=== PATIENT | female | born 1945 | race Caucasian/White ===

== ENCOUNTER 2017-12-03 09:33 | Outpatient (RCR) | payer MEDICARE, SELFPAY ==
[2017-11-26 09:20] VITALS: BP 146/82; BMI 30.5
[2017-12-03 10:56] LABS: International Normalized Ratio 1.7; Prothrombin Time (Protime)PT. 19.1 SECONDS (11.7-14.9)
[2017-12-03 11:10] LABS: Magnesium 1.6 mg/dL (1.6-2.6)
== END 2017-12-31 09:04 ==
LOC: LAB 09:33
PROVIDERS: Nurse Practitioner Family; Family Provider Internal Medicine; PCP Internal Medicine; Visit Provider Internal Medicine Cardiovascular Disease
DX: I48.0 Paroxysmal atrial fibrillation (principal); E83.42 Hypomagnesemia; Z79.01 Long term (current) use of anticoagulants
CPT/HCPCS: 36415; 83735; 85610

== ENCOUNTER 2018-01-15 07:45 | Outpatient (RCR) | payer MEDICARE, SELFPAY ==
[2017-12-23 10:37] LABS: International Normalized Ratio 1.6
[2017-12-31 09:35] LABS: International Normalized Ratio 1.6; Prothrombin Time (Protime)PT. 19.5 SECONDS (11.7-14.9)
[2018-01-07 12:00] LABS: Prothrombin Time (Protime)PT. 22.7 SECONDS (11.7-14.9)
[2018-01-15 09:23] LABS: International Normalized Ratio 2.3; Prothrombin Time (Protime)PT. 25.1 SECONDS (11.7-14.9)
[2018-01-15 09:42] LABS: AST(SGOT) 19 U/L (15-37); Alanine Aminotransfer ALT/SGPT 19 U/L (13-56); Albumin, Serum 3.6 g/dL (3.2-5.0); Alkaline Phosphatase 92 U/L (45-117); Cholesterol 145 mg/dL (200); Globulin 3.7 g/dL (2.2-4.2); High Density Lipoprotein 66 mg/dL; Protein, Total 7.3 g/dL (6.4-8.2); Triglycerides 127 mg/dL; Very Low Density Lipoprotein 25 mg/dL (5-40)
== END 2018-01-15 08:00 | disposition home or self-care (01) ==
LOC: LAB 07:45
PROVIDERS: Family Provider Internal Medicine; PCP Internal Medicine; Visit Provider Internal Medicine Cardiovascular Disease
DX: I48.0 Paroxysmal atrial fibrillation (principal); Z79.01 Long term (current) use of anticoagulants; E78.5 Hyperlipidemia, unspecified
CPT/HCPCS: 36415; 80061; 80076; 85610

== ENCOUNTER → 2018-02-10 09:12 | Outpatient (CLI) | payer MEDICARE, SELFPAY ==
[2018-02-10 09:59] LABS: International Normalized Ratio 1.6
== END ==
PROVIDERS: Family Provider Internal Medicine; PCP Internal Medicine; Visit Provider Internal Medicine Cardiovascular Disease
DX: I48.0 Paroxysmal atrial fibrillation (principal); Z79.01 Long term (current) use of anticoagulants
CPT/HCPCS: 36415; 85610

== ENCOUNTER 2018-02-22 09:07 | Outpatient (RCR) | payer MEDICARE, SELFPAY ==
[2018-01-29 10:38] LABS: International Normalized Ratio 1.7; Prothrombin Time (Protime)PT. 19.9 SECONDS (11.7-14.9)
[2018-02-15 10:33] LABS: International Normalized Ratio 2.4; Prothrombin Time (Protime)PT. 26.5 SECONDS (11.7-14.9)
[2018-02-22 09:54] LABS: International Normalized Ratio 3.3; Prothrombin Time (Protime)PT. 33.7 SECONDS (11.7-14.9)
== END 2018-02-22 10:00 | disposition home or self-care (01) ==
LOC: LAB 09:07
PROVIDERS: Family Provider Internal Medicine; PCP Internal Medicine; Visit Provider Internal Medicine Cardiovascular Disease
DX: I48.0 Paroxysmal atrial fibrillation (principal); Z79.01 Long term (current) use of anticoagulants
CPT/HCPCS: 36415; 85610

== ENCOUNTER → 2018-02-24 09:57 | Outpatient (CLI) | payer MEDICARE, SELFPAY ==
--- NOTE | 2018-02-24 09:59 | ECHOD_ITS ---
Version 2 Reason For Study: PHTN Procedure This was a 2D Doppler, Color Flow transthoracic echocardiogram. Exam performed in department. Left Ventricle Normal size and thickness. The estimated ejection fraction is 65 %. Unable to assess diastolic dysfunction. No regional wall motion abnormalities noted. Right Ventricle Normal size and thickness. Normal systolic function. Atria The left atrium is severely enlarged. The right atrium is severely enlarged. Normal atrial septum. Mitral Valve The mitral valve is structurally normal. No prolapse or stenosis seen. Trivial mitral valve insufficiency. Tricuspid Valve Normal tricuspid valve. Mild (1+) tricuspid valve insufficiency. Right ventricular systolic pressure estimated to be 48 mmHg. Moderate pulmonary hypertension. Aortic Valve Normal aortic valve. Trisinus/trileaflet aortic valve. Pulmonic Valve Normal pulmonic valve. Mild (1+) pulmonic valve insufficiency. Great Vessels Normal aortic root. Normal arch. Normal inferior vena cava. Inferior vena cava collapse with sniff. Pericardium/Pleural No pericardial effusion. MMode/2D Measurements & Calculations LVIDd: 5.2 cm IVSd: 0.94 cm Ao root diam: 3.2 cm LVIDs: 3.4 cm LVPWd: 0.96 cm LA dimension: 3.6 cm RVDd: 3.0 cm FS: 34.2 % LAV(MOD-bp): 76.3 ml LA A4 area: 23.6 cm2 RA A4 area: 24.3 cm2 LAV(MOD-bp) Indexed: 36.3 ml/m2 LAV(MOD-sp2): 70.8 ml LAV(MOD-sp4): 70.0 ml Doppler Measurements & Calculations MV E max pamela: 161.2 cm/sec Ao V2 max: 160.0 cm/sec LV V1 max: 148.3 cm/sec Ao max P.2 mmHg LV V1 max P.8 mmHg PA V2 max: 146.6 cm/sec TR max pamela: 265.4 cm/sec TR max P.4 mmHg Interpretation Summary The estimated ejection fraction is 65 %. Unable to assess diastolic dysfunction. The left atrium is severely enlarged. The right atrium is severely enlarged. Trivial mitral valve insufficiency. Mild (1+) tricuspid valve insufficiency. Right ventricular systolic pressure estimated to be 48 mmHg. Moderate pulmonary hypertension. Pt appears to be in atrial fibrillation. Compared to echo report dated 10/13/2017, LV function has remained the same, RVSP has increased from 38 to 48 mm Hg. Pt now appears to be in atrial fibrillation. Ordering Physician: Grant Ko Referring Physician: Ro Menon Performed By: Gayla Steele RDCS, RVT
== END ==
PROVIDERS: Family Provider Internal Medicine; PCP Internal Medicine; Visit Provider Internal Medicine Cardiovascular Disease
DX: Z98.890 Other specified postprocedural states (principal)
CPT/HCPCS: 93306

== ENCOUNTER → 2018-03-09 09:52 | Outpatient (CLI) | payer MEDICARE, SELFPAY ==
[2018-03-09 10:59] LABS: Anion Gap 7 (5-15); BUN 11 mg/dL (7-18); BUN/Creat Ratio 13.6 RATIO (10-20); Calcium,Total 9.1 mg/dL (8.5-10.1); Chloride 108 mmol/L (98-107); Creatinine, Serum 0.81 mg/dL (0.55-1.02); EST Glomerular Filtration Rate 75 mL/min (>60); Est Glom Filt Rate - Afr Amer 90 mL/min (>60); Glucose 96 mg/dL (74-106); Potassium 3.8 mmol/L (3.5-5.1); Sodium Level 141 mmol/L (136-145)
== END ==
PROVIDERS: Internal Medicine Cardiovascular Disease; Family Provider Internal Medicine; PCP Internal Medicine; Visit Provider Nurse Practitioner Acute Care
DX: I48.91 Unspecified atrial fibrillation (principal)
CPT/HCPCS: 36415; 80048

== ENCOUNTER → 2018-03-17 10:48 | Day surgery (SDC) | payer MEDICARE, SELFPAY ==
[2018-03-17 11:06] LABS: Prothrombin Time Fingerstick 42.5 SEC (11.9-14.4)
--- NOTE | 2018-03-17 12:35 | PCM.OP.BLANK ---
Operative Report Date of Procedure: 03/17/18 CONSCIOUS SEDATION REPORT DATE OF SERVICE: March 17, 2018 BRIEF HISTORY OF PRESENT ILLNESS: The patient is a 73-year-old female who presented to [facility] for an elective outpatient cardioversion due to underlying atrial fibrillation. The patient does have a history of mild intermittent asthma along with obstructive sleep apnea, for which she is currently noncompliant with the use of nocturnal Pap therapy. The patient did undergo previous cardioversion in January 2017, during which time she received propofol for sedation. The patient denies any recent constitutional symptoms such as fevers, chills, nausea or vomiting. She denies previous anesthetic complications. PHYSICAL EXAMINATION: VITAL SIGNS: Reviewed and were acceptable. GENERAL: The patient is an obese female, in no apparent distress, speaking in full sentences. HEENT: Normocephalic, atraumatic. Mucous membranes are moist and pink. Good mouth opening noted. Trachea is midline. Good neck mobility. MP IV CHEST: S1, S2 irregularly irregular. No murmurs, rubs or gallops were noted. LUNGS: Clear to auscultation bilaterally without appreciable wheezes, rales or rhonchi. ABDOMEN: Soft, nontender, nondistended. Positive bowel sounds. EXTREMITIES: There is no clubbing, cyanosis or edema. ASA Class: II DESCRIPTION OF PROCEDURE: After confirmation of informed consent, the patient's anesthesia plan was reviewed in detail. Propofol was chosen. Risks and benefits were reviewed and the patient agreed to proceed. At 1152, the patient was given 40 mg of propofol. The patient achieved an appropriate level of sedation and was given a 200 joule synchronized cardioversion by Dr. Ko at the bedside. This was successful in achieving normal sinus rhythm. The patient was monitored until 1201, at which time she reached her baseline mental status and function. The patient tolerated the procedure well. COMPLICATIONS: None ESTIMATED BLOOD LOSS: None RECOMMENDATIONS: Okay to recover in usual fashion. Code Visit 9xxxx: Other Procedure See Report - [id number]
--- NOTE | 2018-03-17 12:40 | PCM.OP.BLANK ---
Problem List (1) Atrial fibrillation Status: Chronic (2) Atrial flutter Status: Chronic (3) RAMESH (obstructive sleep apnea) Status: Chronic (4) Pulmonary hypertension Status: Chronic Operative Report Date of Procedure: 03/17/18 DC cardioversion summary: The patient was brought to the [employer] holding area in the fasting state. The risks/benefits of the procedure were thoroughly explained the patient and informed consent was obtained. INR this morning was 3.8 and has been above 3.0 over the last several weeks. The defibrillator pads were placed in the AP position. With the assistance of Dr. Tone Alberto patient was given 40 mill grams of IV propofol. Once adequate sedation was obtained, patient received a single 200 J biphasic synchronized shock which converted from atrial flutter with controlled ventricular response to normal sinus rhythm/sinus bradycardia with first-degree AV block. This patient spontaneously awoke, moves all 4 extremities and tolerated the procedure well. Her rhythm maintained at sinus rhythm with first-degree AV block. Conclusions: Successful flecainide assisted DC cardioversion from atrial flutter to sinus bradycardia with first-degree AV block receiving a single 200 J biphasic synchronized shock. No complications. Recommend the patient continue on her Coumadin, flecainide, and heart rate controlling medications. She will return in 2 weeks time for a blood pressure check an EKG in our office. Patient tolerated procedure well. No complications.
== END ==
PROVIDERS: Family Provider Internal Medicine; PCP Internal Medicine; Visit Provider Internal Medicine Cardiovascular Disease
DX: I48.91 Unspecified atrial fibrillation (principal); I48.92 Unspecified atrial flutter; I27.29 Other secondary pulmonary hypertension; I10 Essential (primary) hypertension; G47.33 Obstructive sleep apnea (adult) (pediatric); E78.00 Pure hypercholesterolemia, unspecified; E66.9 Obesity, unspecified; E11.9 Type 2 diabetes mellitus without complications; Q62.39 Other obstructive defects of renal pelvis and ureter; J45.909 Unspecified asthma, uncomplicated; Z68.31 Body mass index [BMI] 31.0-31.9, adult; Z79.01 Long term (current) use of anticoagulants; Z79.84 Long term (current) use of oral hypoglycemic drugs; Z79.899 Other long term (current) drug therapy
CPT/HCPCS: 36416; 85610; 92960; 93005; J7040

== ENCOUNTER 2018-03-23 09:58 | Outpatient (RCR) | payer MEDICARE, SELFPAY ==
[2018-03-01 11:06] LABS: Prothrombin Time (Protime)PT. 22.9 SECONDS (11.7-14.9)
[2018-03-08 12:06] LABS: International Normalized Ratio 2.6; Prothrombin Time (Protime)PT. 28.1 SECONDS (11.7-14.9)
[2018-03-15 10:39] LABS: International Normalized Ratio 2.8; Prothrombin Time (Protime)PT. 29.4 SECONDS (11.7-14.9)
[2018-03-23 11:13] LABS: International Normalized Ratio 3.4; Prothrombin Time (Protime)PT. 34.6 SECONDS (11.7-14.9)
== END 2018-03-23 10:00 | disposition home or self-care (01) ==
LOC: LAB 09:58
PROVIDERS: Family Provider Internal Medicine; PCP Internal Medicine; Visit Provider Internal Medicine Cardiovascular Disease
DX: I48.0 Paroxysmal atrial fibrillation (principal); Z79.01 Long term (current) use of anticoagulants
CPT/HCPCS: 36415; 85610

== ENCOUNTER 2018-04-09 10:21 | Outpatient (RCR) | payer MEDICARE, SELFPAY ==
[2018-04-09 11:19] LABS: International Normalized Ratio 2.4
== END 2018-04-09 11:00 | disposition home or self-care (01) ==
LOC: LAB 10:21
PROVIDERS: Family Provider Internal Medicine; PCP Internal Medicine; Visit Provider Internal Medicine Cardiovascular Disease
DX: I48.0 Paroxysmal atrial fibrillation (principal); Z79.01 Long term (current) use of anticoagulants
CPT/HCPCS: 36415; 85610

== ENCOUNTER 2018-04-30 16:01 | Outpatient (RCR) | payer MEDICARE, SELFPAY ==
[2018-04-30 17:16] LABS: International Normalized Ratio 2.2; Prothrombin Time (Protime)PT. 24.8 SECONDS (11.7-14.9)
== END 2018-04-30 17:00 | disposition home or self-care (01) ==
LOC: LAB 16:01
PROVIDERS: Family Provider Internal Medicine; PCP Internal Medicine; Visit Provider Internal Medicine Cardiovascular Disease
DX: I48.0 Paroxysmal atrial fibrillation (principal); Z79.01 Long term (current) use of anticoagulants
CPT/HCPCS: 36415; 85610

== ENCOUNTER 2018-06-21 09:47 | Outpatient (RCR) | payer MEDICARE, SELFPAY ==
[2018-05-28 11:16] LABS: International Normalized Ratio 1.9; Prothrombin Time (Protime)PT. 21.8 SECONDS (11.7-14.9)
[2018-06-04 10:37] LABS: International Normalized Ratio 2.2; Prothrombin Time (Protime)PT. 24.5 SECONDS (11.7-14.9)
[2018-06-21 10:48] LABS: International Normalized Ratio 2.5; Prothrombin Time (Protime)PT. 27.4 SECONDS (11.7-14.9)
== END 2018-06-21 11:00 | disposition home or self-care (01) ==
LOC: LAB 09:47
PROVIDERS: Family Provider Internal Medicine; PCP Internal Medicine; Visit Provider Internal Medicine Cardiovascular Disease
DX: I48.0 Paroxysmal atrial fibrillation (principal); Z79.01 Long term (current) use of anticoagulants
CPT/HCPCS: 36415; 85610

== ENCOUNTER 2018-07-19 08:42 | Outpatient (RCR) | payer MEDICARE, SELFPAY ==
[2018-07-19 09:37] LABS: AST(SGOT) 20 U/L (15-37); Alanine Aminotransfer ALT/SGPT 23 U/L (13-56); Albumin, Serum 3.8 g/dL (3.2-5.0); Alkaline Phosphatase 96 U/L (45-117); Bilirubin, Direct 0.16 mg/dL (0.00-0.30); Cholesterol 139 mg/dL (200); Globulin 3.9 g/dL (2.2-4.2); High Density Lipoprotein 57 mg/dL; Protein, Total 7.7 g/dL (6.4-8.2); Triglycerides 173 mg/dL; Very Low Density Lipoprotein 35 mg/dL (5-40)
== END 2018-07-19 10:00 | disposition home or self-care (01) ==
LOC: LAB 08:42
PROVIDERS: Family Provider Internal Medicine; PCP Internal Medicine; Visit Provider Internal Medicine Cardiovascular Disease
DX: E78.5 Hyperlipidemia, unspecified (principal); Z79.899 Other long term (current) drug therapy
CPT/HCPCS: 36415; 80061; 80076

== ENCOUNTER 2018-09-14 11:23 | Outpatient (RCR) | payer MEDICARE, SELFPAY ==
[2018-09-07 09:21] VITALS: BMI 31.0
[2018-09-14 12:58] LABS: International Normalized Ratio 2.9; Prothrombin Time (Protime)PT. 30.6 SECONDS (11.7-14.9)
== END 2018-09-24 10:32 | disposition home or self-care (01) ==
LOC: LAB 11:23
PROVIDERS: Family Provider Internal Medicine; PCP Internal Medicine; Referring Provider Internal Medicine Cardiovascular Disease; Visit Provider Internal Medicine Cardiovascular Disease
DX: I48.0 Paroxysmal atrial fibrillation (principal); Z79.01 Long term (current) use of anticoagulants
CPT/HCPCS: 36415; 85610

== ENCOUNTER 2018-10-11 12:12 | Outpatient (RCR) | payer MEDICARE, SELFPAY ==
[2018-09-27 10:32] VITALS: BMI 30.5
[2018-10-11 11:34] VITALS: BMI 31.0
[2018-10-11 13:24] LABS: International Normalized Ratio 2.5; Prothrombin Time (Protime)PT. 27.4 SECONDS (11.7-14.9)
--- OUTSIDE RECORDS SUMMARY | 2019-01-13 02:27 | XMS RPT_ITS ---
:1945 Author Organization OHIP Support Name Relationship Address Phone ALONDRA ARROYO Unavailable [address] + [place] [address] R Unavailable Unavailable Unavailable DINA ALONDRA Unavailable [address] + [place] [address] R Unavailable Unavailable Unavailable DINA, ALONDRA Unavailable [address] + [place] [address] R Unavailable Unavailable Unavailable DINA ALONDRA Unavailable [address] + [place] [address] R Unavailable Unavailable Unavailable DINA, ALONDRA Unavailable [address] + [place] [address] R Unavailable Unavailable Unavailable DINA, ALONDRA Unavailable [address] + [place] [address] R Unavailable Unavailable Unavailable DINA, ALONDRA Unavailable [address] + [place] [address] R Unavailable Unavailable Unavailable DINA, ALONDRA Unavailable [address] + [place] [address] R Unavailable Unavailable Unavailable DINA, ALONDRA Unavailable [address] + [place] [address] R Unavailable Unavailable Unavailable DINA, ALONDRA Unavailable [address] + [place] [address] R Unavailable Unavailable Unavailable DINA, ALONDRA Unavailable [address] + [place] [address] R Unavailable Unavailable Unavailable DINA, ALONDRA Unavailable [address] + [place] [address] R Unavailable Unavailable Unavailable DINA, ALONDRA Unavailable [address] + [place] [address] R Unavailable Unavailable Unavailable DINASUEALONDRA Unavailable [address] + [place] [address] R Unavailable Unavailable Unavailable DINA ALONDRA Unavailable [address] + [place] [address] R Unavailable Unavailable Unavailable DINA ALONDRA Unavailable [address] + [place] [address] R Unavailable Unavailable Unavailable DINA ALONDRA Unavailable [address] + [place] [address] R Unavailable Unavailable Unavailable DINA ALONDRA Unavailable [address] + [place] [address] R Unavailable Unavailable Unavailable DINA ALONDRA Unavailable [address] + [place] [address] R Unavailable Unavailable Unavailable DINASUEALONDRA Unavailable [address] + [place] [address] R Unavailable Unavailable Unavailable DINASUEALONDRA Unavailable [address] + [place] [address] R Unavailable Unavailable Unavailable DINASUEALONDRA Unavailable [address] + [place] [address] R Unavailable Unavailable Unavailable DINASUEALONDRA Unavailable [address] + [place] [address] R Unavailable Unavailable Unavailable DINA ALONDRA Unavailable [address] + [place] [address] R Unavailable Unavailable Unavailable DINA ALONDRA Unavailable [address] + [place] [address] R Unavailable Unavailable Unavailable DINA ALONDRA Unavailable [address] + [place] [address] R Unavailable Unavailable Unavailable KIRK BONILLA/SAWYER Unavailable [address] [phone] [place] [address] R Unavailable Unavailable Unavailable R Unavailable Unavailable Unavailable Care Team Providers Name Role Phone TALAMPAS, JOON D Referring Unavailable TALAMPAS, JOON D Attending Unavailable OLDER, HEATHER (ADJUNCT SPANISH INSTRUCTOR) Referring Unavailable OLDER, HEATHER (ADJUNCT SPANISH INSTRUCTOR) Attending Unavailable TALAMPAS, JOON D Referring Unavailable TALAMPAS, JOON D Attending Unavailable TALAMPAS, JOON D Referring Unavailable TALAMPAS, JOON D Referring Unavailable TANGNICOLLE (DEPUTY DIRECTOR OF PUBLIC WORKS) Attending Unavailable Grant Ko Attending Unavailable Talampas, Joon Referring Unavailable Grant Ko Attending Unavailable Grant Ko Referring Unavailable Talampas, Joon Primary Care Unavailable Grant Ko Attending Unavailable Talampas, Joon Primary Care Unavailable Grant Ko Referring Unavailable Grant Ko Attending Unavailable Grant Ko Referring Unavailable Talampas, Joon Primary Care Unavailable Grant Ko Attending Unavailable Talampas, Joon Primary Care Unavailable Tone Alberto D.O. Attending Unavailable Talampas, Joon Referring Unavailable Talampas, Joon Primary Care Unavailable Grant Ko Attending Unavailable Talampas, Joon Referring Unavailable Talampas, Joon Primary Care Unavailable Grant Ko Attending Unavailable Grant Ko Referring Unavailable Talampas, Joon Primary Care Unavailable Grant Ko Attending Unavailable Grant Ko Referring Unavailable Talampas, Joon Primary Care Unavailable Bang Emerson Attending Unavailable Grant Ko Referring Unavailable Grant Ko Attending Unavailable Grant Ko Referring Unavailable Talampas, Joon Primary Care Unavailable Grant Ko Attending Unavailable Maikel, Grant Referring Unavailable Talampas, Joon Primary Care Unavailable Grant Ko Attending Unavailable Grant Ko Referring Unavailable Talampas, Joon Primary Care Unavailable Leeanna Mascorro Attending Unavailable Talampas, Joon Referring Unavailable Gratn Ko Attending Unavailable Grant Ko Referring Unavailable Talampas, Joon Primary Care Unavailable Grant Ko Attending Unavailable Grant Ko Referring Unavailable Talampas, Joon Primary Care Unavailable Grant Ko Consulting Unavailable Tone Alberto D.O. Attending Unavailable Grant Ko Referring Unavailable Talampas, Joon Primary Care Unavailable Grant Ko Consulting Unavailable Grant Ko Attending Unavailable Maikel Grant Referring Unavailable Talampas, Joon Primary Care Unavailable Grant Ko Attending Unavailable Talampas, Joon Primary Care Unavailable Tone Alberto D.O. Attending Unavailable Talampas, Joon Referring Unavailable Grant Ko Attending Unavailable Maikel Grant Referring Unavailable Talampas, Joon Primary Care Unavailable Grant Ko Attending Unavailable Grant Ko Referring Unavailable Talampas, Joon Primary Care Unavailable Grant Ko Attending Unavailable Mascorro, Leeanna Attending Unavailable Mascorro, Leeanna Referring Unavailable Talampas, Joon Primary Care Unavailable Grant Ko Attending Unavailable Talampas, Joon Referring Unavailable Talampas, Joon Primary Care Unavailable Grant Ko Attending Unavailable Talampas, Joon Referring Unavailable Talampas, Joon Primary Care Unavailable Grant Ko Attending Unavailable Talampas, Joon Referring Unavailable Talampas, Joon Primary Care Unavailable PROBLEMS PROBLEMS DATE TYPE CONDITION / CODE ATTENDING STATUS SOURCE 10/25/2018 Unknown I48.0 - Paroxysmal [place] Koel Active [place] atrial fibrillation Community / I48.0(ICD-10) Hospital Repository 10/25/2018 Unknown Z79.01 - USP Grant Ko Active [place] (current) use of Community anticoagulants / Hospital Z79.01(ICD-10) Repository 10/11/2018 Unknown I48.91 - Unspecified [place] Koel Active [place] atrial fibrillation Community / I48.91(ICD-10) Hospital Repository 10/11/2018 Unknown I48.92 - Unspecified Maikel Grant Active [place] atrial flutter / Community I48.92(ICD-10) Hospital Repository 10/11/2018 Unknown E78.5 - Grant Ko Active [facility] Hyperlipidemia, Community unspecified / Hospital E78.5(ICD-10) Repository 10/11/2018 Unknown G47.33 - Obstructive Grant Ko Active [place] sleep apnea (adult) Community (pediatric) / Hospital G47.33(ICD-10) Repository 01/02/2016 Active Essential (primary) NA Active [facility] hypertension / Clinic Main I10(ICD-10) [place] Repository 03/02/2006 Active Palpitations / NA Active [facility] R00.2(ICD-10) Clinic Main [place] Repository 09/14/2018 Active Paroxysmal atrial NA Active [facility] fibrillation / Clinic Main I48.0(ICD-10) [place] Repository 09/07/2018 Unknown J45.20 - Mild Tone Brown, Active [facility] intermittent asthma, D.O. Community uncomplicated / Hospital J45.20(ICD-10) Repository 09/01/2018 Active Unknown / OLDER, HEATHER Active [facility] UNK(Unknown) (ADJUNCT SPANISH INSTRUCTOR) Clinic Main [place] Repository 08/04/2018 Active Encounter for NA Active [facility] screening for Clinic Main malignant neoplasm [place] of colon / Repository Z12.11(ICD-10) 07/28/2018 Unknown Z79.899 - Other long Grant Ko Active [facility] term (current) drug Community therapy / Hospital Z79.899(ICD-10) Repository 07/02/2018 Active Type 2 diabetes NA Active [facility] mellitus without Clinic Main complications / [place] E11.9(ICD-10) Repository 07/02/2018 Active Other assisted NA Active [facility] (current) drug Clinic Main therapy / [place] Z79.899(ICD-10) Repository 07/02/2018 Active Mixed hyperlipidemia NA Active [facility] / E78.2(ICD-10) Clinic Main [place] Repository 04/27/2018 Unknown I10 - Essential Idania, Bang Active [facility] (primary) Community hypertension / Hospital I10(ICD-10) Repository 2018 Unknown Z98.890 - Other Grant Ko Active [place] specified Community postprocedural Hospital states / Repository Z98.890(ICD-10) 02/15/2018 Unknown I27.20 - Pulmonary Grant Ko Active [facility] hypertension, Community unspecified / Hospital I27.20(ICD-10) Repository 12/31/2017 Unknown E83.42 - Grant Ko Active [facility] Hypomagnesemia / Community E83.42(ICD-10) Hospital Repository PROCEDURES PROCEDURES No Procedure Records FoundRESULTS RESULTS PROTHROMBIN TIME W/INR Collected: 10/11/2018 Status: F Source: [place] 12:21 PM [facility] TYPE CODE TESTS RESULT OUT OF RANGE REFERENCE UNITS LAB L300.4150 11.7-14.9 SECONDS High PROTIME 27.4 LAB L300.4200 Normal INR 2.5 Performed By: #### L300.3900 #### [facility] [address] [place], [place], [address] CARDIOLOGY VISIT Observed: 10/11/2018 Status: F Source: [place] REPORT 12:06 PM [facility] REPOSITORY [facility] [address] [place] [address] OFFICE VISIT Date of Service: 10/11/18 MR#: [id number] Acct: [id number] Name: KEISHA RED Rep #: [id number] : 1945 Provider: Grant Ko MD Age/Sex: 73/F Location: [facility].G Status: Signed HPI HPI Chief Complaint: Routine f/u Details: Details: referring physician: Dr. Reed Mrs. Red is a very pleasant 73-year-old morbidly obese diabetic female, lifelong nonsmoker, with a history of hypertension, hypercholesterolemia, obstructive sleep apnea, with no previous known cardiac history who was originally admitted on 12/24/16 with significant hypertension after running out of her medications as well as her Symbicort inhaler. Patient developed progressively worsening dyspnea and exertion and was found to be in atrial fibrillation with controlled ventricular response. Patient underwent 2-D echo with Doppler which demonstrated an EF of 75%, increased pulmonary pressures from 2011 from 29 mm to 47 mmHg, and atrial fibrillation. She was ruled out for myocardial infarction underwent a non-walking nuclear stress test which was negative for inducible ischemia. Her most recent EKG which showed sinus rhythm was in 2014. Since admission and discharge with medical management she is feeling much much better, and denies any chest pain, angina, shortness of breath or dyspnea on exertion. She is taking and tolerating her medicines well. she underwent successful DC cardioversion in 01/28/17 and is remained in sinus rhythm ever since. She denies any palpitations or symptoms of atrial fibrillation. Last visit, the patient was doing well up until around 02/04/18 when she was traveling to [place] with her daughters. She was visiting [place], and unfortunately tripped over her black dog in the dark, hitting her head. She sought medical attention at [facility] and her INR was found to be 1.0. CT the head did not show any acute pathology. Her Coumadin was held, MRI of the brain was negative, carotid Dopplers were negative. She is recently restarted on Coumadin. Since her fall she is doing quite well and has had no presyncope, syncope, lightheadedness or dizziness. It is felt the patient most likely had a concussion at the time of her fall. Her EKG while visiting the [facility] dated 02/04/18 showed atrial flutter with fixed controlled ventricular response, no acute changes. Repeat echocardiogram dated 02/24/18 showed EF of 65%, 1+ TR, and RVSP of 42 mmHg consistent with mild to moderate pulmonary hypertension. Apparently the patient was in her PCPs office and noted an irregular heartbeat. An EKG was performed which demonstrated atrial flutter with controlled ventricular response. Repeat EKG today demonstrates atrial flutter with controlled ventricular response. No acute changes. Low voltage throughout, possible old anteroseptal wall myocardial infarction. In our office today her blood pressure is 140/60, and pulse of 48 and regular. Her physical exam demonstrates severe obesity, clear lungs bilaterally, no wheezing, Regular rate and rhythm and normal S1/S2. She has no edema. Lipids as of 12/24/16 showed HDL of 57 and an LDL of 109. lipids as of 01/16/17 shown LDL of 55 and an HDL of 60. Her lipids as of 01/15/18 show an HDL of 66 and an LDL of 54. Her lipids as of 07/19/18 showing LDL of 47 and HDL of 57. 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 Intake Vital Signs10/11/18 Height 5 ft 8 in 10/11/18 Weight: 204 lb 10/11/18 Body Mass Index (BMI) 31.0 10/11/18 Blood Pressure 140/60 H Intake Visit Reasons: 6 M FU Urban Sociologist Required: No Is patient in pain?: No Allergies amoxicillin Allergy (Severe, Verified 10/07/18 09:44) Hives aspirin Allergy (Severe, Verified 10/07/18 09:44) Hives, SOB Sulfa (Sulfonamide Antibiotics) Allergy (Severe, Verified 10/07/18 09:44) Hives Medications Hydrocodone Bitart/Apap 5-325 [Vernon 5/325] 1 - 2 tab PO Q6H PRN PRN #12 tab 08/14/17 [Rx Confirmed 10/11/18] magnesium oxide 400 mg capsule 400 mg PO QDAY cap 11/18/17 [History Confirmed 10/11/18] losartan 50 mg tablet 50 mg PO QDAY 02/13/18 [History Confirmed 10/11/18] metformin 500 mg tablet 500 mg PO BID tab 02/13/18 [History Confirmed 10/11/18] albuterol sulfate HFA 90 mcg/actuation aerosol inhaler 2 puff INHALATION Q6H PRN #1 device 02/25/18 [Rx Confirmed 09/07/18] atorvastatin 10 mg tablet 10 mg PO QHS #90 tab 05/06/18 [Rx Confirmed 09/07/18] warfarin 5 mg tablet 5 mg PO .COMPLEX #100 tab 05/24/18 [Rx Confirmed 10/11/18] flecainide 50 mg tablet 50 mg PO Q12H #180 tab 09/01/18 [Rx Confirmed 09/07/18] glimepiride 2 mg tablet 2 mg PO .COMPLEX 10/11/18 [History Confirmed 10/11/18] [facility] Medical History Hyperlipidemia (Chronic) 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) Obesity (Chronic) Diabetes mellitus (Chronic) Other secondary pulmonary hypertension (Chronic) RAMESH (obstructive sleep apnea) (Chronic) Asthma (Chronic) USP (current) use of anticoagulants (Chronic) Atrial fibrillation (Chronic) Cystitis (Acute) Allergic rhinitis (Chronic) BMI 33.0-33.9,adult (Chronic) Contact dermatitis and other eczema (Chronic) DDD (degenerative disc disease) (Chronic) Dizziness and giddiness (Chronic) Hx of bladder infections (Chronic) Hypersomnia (Chronic) RAMESH (obstructive sleep apnea) (Chronic) Palpitations (Chronic) Shoulder dislocation (Chronic) Viral URI with cough (Resolved) Surgical History History of kidney surgery (Chronic) History of appendectomy (Chronic) Family History Mother Diabetes Father CAD (coronary artery disease) Sister Lung cancer Son Kidney stone Social History Smoking Status: Never smoker alcohol intake: never substance use type: does not use ROS Const Const: Positive for other (here for f/u as back in a fib @ Dr. Reed', on flecainide); negative for fatigue, weakness, body ache, fever(s), headache(s), chills, frequent falls, night sweats, daytime sleepiness, difficulty sleeping, excessive sweating, weight gain, weight loss, increased appetite, poor appetite or anorexia Eyes Eyes: Negative for blind spots, loss of peripheral vision, transient loss of vision, blurry vision, change in vision, double vision, floaters, tunnel vision or other ENT ENT: Negative for dizziness, hearing loss, tinnitus, Nosebleed/epistaxis, balance problems, post nasal drip, lip swelling, tongue swelling, bleeding gums, hoarseness, neck pain, dry mouth, other or headache(s) Cardio Chest Pain: No Palpitations: No (Can't feel her a-fib) Edema: None Muscle aches with walking: None Resp Respiratory: Positive for SOB with activity; negative for SOB at rest, SOB orthopnea\SOB lying down, Cough, Coughing up blood/hemoptysis, chest congestion, pain on inspiration, snoring, stridor, wheezing, crackles, paroxysmal nocturnal dyspnea or other GI GI: Negative nausea, vomiting, heartburn, constipation, belching, bloating, cramping, vomiting blood/hematemesis, bright, red blood in stools, black,tarry stools, loose stools, Difficulty Swallowing or other : Negative for hematuria, frequent nighttime urination/ nocturia, erectile dysfunction or abnormal vaginal bleeding Musc Musc: Negative for balance problems, muscle aches/ myalgia, muscle weakness or joint pain Skin Skin: Negative redness, non-healing lesions, rash, unusual bruising, skin ulcer, wounds, jaundice or other Neuro Neuro: Negative for blurry vision, double vision, dizziness, lightheadedness, near syncope, syncope, orthostatic symptoms, confusion, memory loss, restless legs, vertigo, seizures, lack of coordination, other, weakness, headache(s) or frequent falls Delbert Hematologic/Lymphatic: Negative for easy bleeding, easy bruising, enlarged lymph nodes or other Endo Endo: Negative for cold intolerance, heat intolerance, flushing, increased thirst/drinking, increased hunger, hair loss, hair growth, other, fatigue or excessive sweating Psych Psych: Negative for anxiety, depression, thoughts of harming anyone, thoughts of harming yourself, visual hallucinations, panic attacks or audible hallucinations Allergy Allergy/Immunology: Negative for lip swelling, Negative for tongue swelling, Negative for rash, Negative for throat swelling, Negative for hives Cardiology Exam Const Appearance: cooperative, healthy appearing and no acute distress Nutritional Appearance: well nourished Orientation: alert, oriented x3 and oriented to person Head Head: normal to inspection, atraumatic and normocephalic Nose: external nose normal Face and Sinus: face symmetric Mouth: oral mucosae normal Eyes General: appearance normal, both eyes and all related structures Eyelids: eyelids normal Conjunctivae: conjunctivae normal Pupils: PERRL and normal by confrontation EOM: EOM intact bilaterally Neck Neck: normal visual inspection and full ROM Carotids: normal carotid upstroke Chest Chest inspection: normal inspection of the chest Auscultation: Bilateral: Clear to Auscultation Cardio Palpation: normal PMI Rate: regular rate Rhythm: regular rhythm Heart sounds: S1 normal and S2 normal GI GI: normal to inspection, no hepatosplenomegaly and bowel sounds present Neuro General: alert, oriented x3, awake, CN's II-XI intact bilaterally and moves all extremities Skin Skin: no rashes or lesions noted Extremities Pulses: Normal: Right Femoral Pulse, Left Femoral Pulse, Right Dorsalis Pedis Pulse, Left Dorsalis Pedis Pulse, Right Posterior Tibial Pulse, Left Posterior Tibial Pulse, Right Radial Pulse, Left Radial Pulse Lower Extremity Edema: None: Bilateral Psych Psychological: normal affect Assessment AND Plan 1. Atrial flutter I48.92 Plan 1. Atrial flutter: The patient has oscillated back and forth between sinus rhythm and atrial flutter, most likely a result of her obstructive sleep apnea, atrial dilatation, and pulmonary hypertension. Since the patient is going back and forth between atrial flutter and sinus rhythm, I do not believe the patient would benefit from increasing her flecainide or repeat cardioversion. She has a slow ventricular response with the results of flecainide, and we are unable to give her beta-blockers given her reactive airway disease. I recommended the patient be evaluated by Dr. Hobson at [facility] for atrial flutter ablation. This may have the benefit of discontinuation of flecainide and discontinuation of warfarin long-term. Her blood pressure and heart rate are well-controlled at this time. Would not recommend repeat stress test at this time. She has had no anginal symptoms. She will need to continue her warfarin through her consultation and initially after her a flutter blood Orders Orders: Referrals: 2. Hyperlipidemia E78.5 Plan 2. Hyperlipidemia: Her LDL and HDL cholesterol are fairly well-controlled. Continue Lipitor. 3. Return office in 6 months. This note was generated using a voice recognition system and there may be incorrect words, spelling or punctuation that were not noted when reviewing the office note prior to saving. 3. RAMESH (obstructive sleep apnea) G47.33 Plan Detail Other Orders Orders: Follow Up +6M (Maikel) Coding Level of Care Code Off vis,est,level 3 Diagnoses Atrial flutter I48.92 Hyperlipidemia E78.5 RAMESH (obstructive sleep apnea) G47.33 Coding Level of Care Code Off vis,est,level 3 Diagnoses Atrial flutter I48.92 Hyperlipidemia E78.5 RAMESH (obstructive sleep apnea) G47.33 10/11/18 1206 <Electronically signed by Grant Ko MD> Date Grant Ko MD Cosigner Signature: Date (if applicable) CC: Joon Reed MD 12 LEAD EKG PERFORMED Observed: 10/11/2018 Status: F Source: [place] [facility] 11:46 AM [facility] RE[facility] [address] [place] [address] 12 Lead EKG performed by [facility] 10/11/18 1145 MR#: [id number] Acct: [id number] Name: KEISHA RED Rep #: [id number] : 1945 73 From: Grant Ko MD Attending Dr: Grant Ko MD Status: DEP AMB Ordering Dr: Grant Ko MD Date: 10/11/18 Location: [place] Sex: F C Admitted: [facility]/12 Lead EKG performed by [facility] 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 Low voltage -possible pulmonary disease. BNORMAL 10/12/18 1311 <Electronically signed by Grant Ko MD> Date Grant Ko MD CC: Joon Reed MD Date Dictated: 10/11/18 1145 Date Transcribed: 10/11/181144 Bond Underwriter: AZUL Signed PROTHROMBIN TIME W/INR Collected: 09/14/2018 Status: F Source: [place] 11:28 AM [facility] REPOS[facility] TYPE CODE TESTS RESULT OUT OF RANGE REFERENCE UNITS LAB L300.4150 11.7-14.9 SECONDS High PROTIME 30.6 LAB L300.4200 Normal INR 2.9 Performed By: #### L300.3900 #### [facility] [address] [place], [address] ECG COMPLETE W Observed: 09/14/2018 Status: F Source: [place] [facility] 10:26 AM [facility] REPOSITORY NAME : KEISHA RED PID : [id number] : 1945 Gender : Female Race : ORD : [id number] Procedure Date : Sep 14 2018 10:26:25 Edit Date : Sep 20 2018 09:11:34 Diagnosis:ATRIAL FLUTTER WITH VARIABLE A-V BLOCK LOW VOLTAGE QRS, CONSIDER PULMONARY DISEASE, PERICARDIAL EFFUSION, OR NORMAL VARIANT CANNOT EXCLUDE ANTEROSEPTAL MYOCARDIAL INFARCTION , AGE UNDETERMINED ABNORMAL ECG Confirmed by JAIR BASURTO D.O. ([id number]) on 09/20/2018 9:11:24 AM Ventricular Rate : 52 BPM Atrial Rate : 308 BPM QRS Duration : 56 ms Q-T Interval : 414 ms QTC Calculation(Bezet) : 385 ms R Brist[place] : 28 degrees T [place] : 42 degrees Test Reason : Location : [address] [place] [address] Overread By : JAIR BASURTO D.O. Edited By : JAIR BASURTO D.O. Referred By : JOON REED Acquired by : Tracie LYNN, PROGRESS Observed: 09/14/2018 Status: COMPLETED Source: [place] 9:42 AM [facility] REPOSITORY HNO ID: [id number] Author: Joon Reed Service: (none) Author Type: Physician Type: Progress Notes Filed: 09/26/2018 9:12 PM Note Text: This note was created using NoteWriter. Subjective Keisha Red is a 73 year old female. Back pain and spasms--about doing me in. Takes Vicodin as needed. Using patches and TENS unit. Steroid had not helped. Arm numbness comes and goes. Today numb. Recliner and rest helps. Heat and ice had not helped. Now feeling like heart might be back in a fib the past few days starting 3 days ago. Feels like fluttering again. Feeling more tired but not sleeping well lately. Hard to go back to sleep after wakes up around 1:30 AM to urinate. Broken sleep. Sleeps some more in AM. Has been following with Dr. Ko (Cardiology) and Dr. Tone Alberto (Central Lab Technician). Denies symptoms of excessive thirst or increased frequency of urination and low sugar/hypoglycemic reactions. Doing okay on DM meds. 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 Agudelo - Dizziness and giddiness - Muscle spasm - Obesity, unspecified - Palpitations - Shoulder dislocation 12/06/11 Right shoulder s/p fall with reduction at [facility] - Type II or unspecified type diabetes mellitus without mention of complication, not stated as uncontrolled - Unspecified asthma(493.90) - Unspecified essential hypertension Current Outpatient Prescriptions: cyclobenzaprine (FLEXERIL) 10 mg tablet Take 0.5-1 tablets by mouth twice daily as needed for Muscle Spasm (may make drowsy, take before bedtime). losartan (COZAAR) 50 mg tablet Take 1 tablet by mouth once daily. (Dr. Ko) triamcinolone acetonide (KENALOG) 0.1 % cream Apply 1 application to affected area three times daily as needed. For rash on extremitites and leg metFORMIN ER (GLUCOPHAGE XR) 500 mg 24 hr tablet Take 2 tablets by mouth twice daily with meals. budesonide-formoterol (SYMBICORT) 160-4.5 mcg/actuation inhaler Inhale 2 Puffs as instructed twice daily. flecainide (TAMBOCOR) 50 mg tablet Take 50 mg by mouth q 12 HR. MAGNESIUM ORAL every day warfarin (COUMADIN) 5 mg tablet Take 5 mg by mouth once daily. glimepiride (AMARYL) 2 mg tablet Take 1 tablet by mouth once daily as needed. for blood sugar over 200. atorvastatin (LIPITOR) 10 mg tablet Take 1 tablet by mouth once daily. albuterol HFA (PROAIR HFA) 90 mcg/actuation inhaler Inhale 2 Puffs as instructed every 4 hours as needed. blood sugar diagnostic (RELION PRIME TEST STRIPS) test strip Test glucose 1 x per day. Dx: 250.00. Insulin use: no TENS unit and electrodes cmpk 1 Each once daily. TENS UNIT ELECTRODES (TENS UNITS ELECTRODES) 2X2 pads Change pad every month as indicated oxyCODONE-acetaminophen (PERCOCET) 5-325 mg tablet Take 1 tablet by mouth every 8 hours as needed for up to 7 days. TAKE ONE(1) TABLET EVERY EIGHT HOURS NEEDED FOR SEVERE PAIN. No current facility-administered medications for this visit. Social History Marital status: Spouse name: Years of education: Number of children: Social History Main Topics Smoking status: Never Smoker Smokeless tobacco: Never Used Alcohol use: No Sexual activity: No Comment: 3 children Review of Systems Cardiovascular: Positive for palpitations and leg swelling. Negative for chest pain. Musculoskeletal: Positive for back pain. Muscle spasms in back Skin: Legs doing better with itchy rash--TAC still helps Neurological: Positive for numbness. Numbness in both arms and sometimes hands intermittently Psychiatric/Behavioral: Positive for sleep disturbance. Objective BP 130/56 Pulse (!) 56 Resp 16 Wt 92.1 kg (203 lb) BMI 32.77 kg/m? Last 5 Encounter BP Readings: Date: BP: 09/14/2018 130/56 09/01/2018 150/78 07/08/2018 134/74[recheck[ 02/02/2018 166/82 09/29/2017 120/60 Last 5 Encounter Wt Readings: Date: Wt: 09/14/2018 92.1 kg (203 lb) 09/01/2018 91.6 kg (202 lb) 02/02/2018 96.6 kg (213 lb) 09/29/2017 91.6 kg (202 lb) 01/01/2017 99.8 kg (220 lb) Physical Exam Constitutional: She appears well-developed and well-nourished. HENT: Head: Normocephalic. Eyes: Conjunctivae are normal. Cardiovascular: Normal rate, regular rhythm and normal heart sounds. ?ectopic beats Pulmonary/Chest: Effort normal and breath sounds normal. She has no wheezes. She has no rales. Skin: NAME : KEISHA RED : [id number] : 1945 Gender : Female Race : ORD : [id number] ? Procedure Date : Sep 14 2018 10:26:25 Edit Date : Sep 20 2018 09:11:34 ? Diagnosis:ATRIAL FLUTTER WITH VARIABLE A-V BLOCK LOW VOLTAGE QRS, CONSIDER PULMONARY DISEASE, PERICARDIAL EFFUSION, OR NORMAL VARIANT CANNOT EXCLUDE ANTEROSEPTAL MYOCARDIAL INFARCTION , AGE UNDETERMINED ABNORMAL ECG Confirmed by JAIR BASURTO D.O. ([id number]) on 09/20/2018 9:11:24 AM ? Ventricular Rate : 52 ?BPM Atrial Rate : 308 ?BPM QRS Duration : 56 ?ms Q-T Interval : 414 ?ms QTC Calculation(Bezet) : 385 ?ms R Bristow : 28 ?degrees T Bristow : 42 ?degrees ? Test Reason : ? Location : 185 : [place] ? ? Overread By : JAIR BASURTO D.O. Edited By : JAIR BASURTO D.O. Referred By : JOON REED Acquired by : Tracie LYNN, Assessment and Plan Encounter Diagnosis ICD-10-CM 1. Essential hypertension I10 COMP METABOLIC PANEL CBC ECG COMPLETE W INTERPRETATION 2. Controlled type 2 diabetes mellitus without complication, without long-term current use of insulin ([facility]) E11.9 COMP METABOLIC PANEL CBC MAGNESIUM BLD HGB A1C 3. Atrial flutter by electrocardiogram ([facility]) I48.92 4. Anticoagulated on Coumadin Z51.81 PROTHROMBIN TIME/PT Z79.01 CBC 5. Mixed hyperlipidemia E78.2 6. PAF (paroxysmal atrial fibrillation) ([facility]) I48.0 ECG COMPLETE W INTERPRETATION 7. Palpitations R00.2 ECG COMPLETE W INTERPRETATION 8. Back strain, sequela S39.012S cyclobenzaprine (FLEXERIL) 10 mg tablet HYDROcodone-acetaminophen (NORCO) 5-325 mg per tablet 9. DDD (degenerative disc disease), lumbar M51.36 HYDROcodone-acetaminophen (NORCO) 5-325 mg per tablet 10. Allergic contact dermatitis due to other agents L23.89 TENS patches after wears off and on for 3 days in same spot Above issues addressed with patient. Patient involved in shared decision making for management of medical issues. History and medications reviewed. Epic updated as needed Refills taken care of and meds adjusted as indicated after reviewed history, exam and labs. Health Maintenance reviewed. Updated record and/or ordered tests as recorded. Encouraged on efforts at healthy diet and regular exercise and adequate sleep. Needs to keep working on diet and exercise with lifestyle changes for effective weight loss as well as control of DM, and control of BP and lipids. Faxed ECG to Dr. Ko so aware in a flutter. She has appointment coming up, but might need to be seen sooner to make sure stays stable and does not go into a flutter with RVR. Still issues with pain control--increased pain lately. Hydrocodone can help sometimes. No signs of diversion or abuse of medication(s); no adverse effects. Continue present management. Further evaluation and treatment as indicated. Refer as indicated for PT. pain management or adolescent specialist evaluation and treatment. Aware weight loss can help with pain control. PDMP website checked and validated. All prescriptions have been APPROPRIATELY filled. No suspicious activity was identified. 09/14/2018 by Joon Reed MD The majority of the visit was spent counseling and/or coordinating care for the patient. Ijde-sn-hpni time was at least 25 minutes. Joon Reed MD CNOV Observed: 09/14/2018 Status: COMPLETED Source: [place] 9:40 AM [facility] REPOSITORY Office Visit (INTMWS) ZAYKEISHA L ([id number]) 1945 F Date Time Provider Department 09/14/18 9:40 AM JOON REED INTMWS During your visit today, we recorded the following information about you: Pulse Respiration Blood pressure Weight 56/minute 16/minute 130/56 92.1 kg Joon Reed MD 09/26/2018 9:12 PM Signed This note was created using NoteWriter. Subjective Keisha Red is a 73 year old female. Back pain and spasms--about doing me in. Takes Vicodin as needed. Using patches and TENS unit. Steroid had not helped. Arm numbness comes and goes. Today numb. Recliner and rest helps. Heat and ice had not helped. Now feeling like heart might be back in a fib the past few days starting 3 days ago. Feels like fluttering again. Feeling more tired but not sleeping well lately. Hard to go back to sleep after wakes up around 1:30 AM to urinate. Broken sleep. Sleeps some more in AM. Has been following with Dr. Ko (Cardiology) and Dr. Tone Alberto (Central Lab Technician). Denies symptoms of excessive thirst or increased frequency of urination and low sugar/hypoglycemic reactions. Doing okay on DM meds. 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 Agudelo - Dizziness and giddiness - Muscle spasm - Obesity, unspecified - Palpitations - Shoulder dislocation 12/06/11 Right shoulder s/p fall with reduction at [facility] - Type II or unspecified type diabetes mellitus without mention of complication, not stated as uncontrolled - Unspecified asthma(493.90) - Unspecified essential hypertension Current Outpatient Prescriptions: cyclobenzaprine (FLEXERIL) 10 mg tablet Take 0.5-1 tablets by mouth twice daily as needed for Muscle Spasm (may make drowsy, take before bedtime). losartan (COZAAR) 50 mg tablet Take 1 tablet by mouth once daily. (Dr. Ko) triamcinolone acetonide (KENALOG) 0.1 % cream Apply 1 application to affected area three times daily as needed. For rash on extremitites and leg metFORMIN ER (GLUCOPHAGE XR) 500 mg 24 hr tablet Take 2 tablets by mouth twice daily with meals. budesonide-formoterol (SYMBICORT) 160-4.5 mcg/actuation inhaler Inhale 2 Puffs as instructed twice daily. flecainide (TAMBOCOR) 50 mg tablet Take 50 mg by mouth q 12 HR. MAGNESIUM ORAL every day warfarin (COUMADIN) 5 mg tablet Take 5 mg by mouth once daily. glimepiride (AMARYL) 2 mg tablet Take 1 tablet by mouth once daily as needed. for blood sugar over 200. atorvastatin (LIPITOR) 10 mg tablet Take 1 tablet by mouth once daily. albuterol HFA (PROAIR HFA) 90 mcg/actuation inhaler Inhale 2 Puffs as instructed every 4 hours as needed. blood sugar diagnostic (RELION PRIME TEST STRIPS) test strip Test glucose 1 x per day. Dx: 250.00. Insulin use: no TENS unit and electrodes cmpk 1 Each once daily. TENS UNIT ELECTRODES (TENS UNITS ELECTRODES) 2X2 pads Change pad every month as indicated oxyCODONE-acetaminophen (PERCOCET) 5-325 mg tablet Take 1 tablet by mouth every 8 hours as needed for up to 7 days. TAKE ONE(1) TABLET EVERY EIGHT HOURS NEEDED FOR SEVERE PAIN. No current facility-administered medications for this visit. Social History Marital status: Spouse name: Years of education: Number of children: Social History Main Topics Smoking status: Never Smoker Smokeless tobacco: Never Used Alcohol use: No Sexual activity: No Comment: 3 children Review of Systems Cardiovascular: Positive for palpitations and leg swelling. Negative for chest pain. Musculoskeletal: Positive for back pain. Muscle spasms in back Skin: Legs doing better with itchy rash--TAC still helps Neurological: Positive for numbness. Numbness in both arms and sometimes hands intermittently Psychiatric/Behavioral: Positive for sleep disturbance. Objective BP 130/56 Pulse (!) 56 Resp 16 Wt 92.1 kg (203 lb) BMI 32.77 kg/m? Last 5 Encounter BP Readings: Date: BP: 09/14/2018 130/56 09/01/2018 150/78 07/08/2018 134/74[recheck[ 02/02/2018 166/82 09/29/2017 120/60 Last 5 Encounter Wt Readings: Date: Wt: 09/14/2018 92.1 kg (203 lb) 09/01/2018 91.6 kg (202 lb) 02/02/2018 96.6 kg (213 lb) 09/29/2017 91.6 kg (202 lb) 01/01/2017 99.8 kg (220 lb) Physical Exam Constitutional: She appears well-developed and well-nourished. HENT: Head: Normocephalic. Eyes: Conjunctivae are normal. Cardiovascular: Normal rate, regular rhythm and normal heart sounds. ?ectopic beats Pulmonary/Chest: Effort normal and breath sounds normal. She has no wheezes. She has no rales. Skin: NAME : KEISHA RED PID : [id number] : 1945 Gender : Female Race : ORD : [id number] ? Procedure Date : Sep 14 2018 10:26:25 Edit Date : Sep 20 2018 09:11:34 ? Diagnosis:ATRIAL FLUTTER WITH VARIABLE A-V BLOCK LOW VOLTAGE QRS, CONSIDER PULMONARY DISEASE, PERICARDIAL EFFUSION, OR NORMAL VARIANT CANNOT EXCLUDE ANTEROSEPTAL MYOCARDIAL INFARCTION , AGE UNDETERMINED ABNORMAL ECG Confirmed by JAIR BASURTO D.O. ([id number]) on 09/20/2018 9:11:24 AM ? Ventricular Rate : 52 ?BPM Atrial Rate : 308 ?BPM QRS Duration : 56 ?ms Q-T Interval : 414 ?ms QTC Calculation(Bezet) : 385 ?ms R Bristow : 28 ?degrees T Bristow : 42 ?degrees ? Test Reason : ? Location : 185 : [place] ? ? Overread By : JAIR BASURTO D.O. Edited By : JAIR BASURTO D.O. Referred By : JOON REED Acquired by : Tracie LYNN, Assessment and Plan Encounter Diagnosis ICD-10-CM 1. Essential hypertension I10 COMP METABOLIC PANEL CBC ECG COMPLETE W INTERPRETATION 2. Controlled type 2 diabetes mellitus without complication, without long-term current use of insulin ([facility]) E11.9 COMP METABOLIC PANEL CBC MAGNESIUM BLD HGB A1C 3. Atrial flutter by electrocardiogram ([facility]) I48.92 4. Anticoagulated on Coumadin Z51.81 PROTHROMBIN TIME/PT Z79.01 CBC 5. Mixed hyperlipidemia E78.2 6. PAF (paroxysmal atrial fibrillation) ([facility]) I48.0 ECG COMPLETE W INTERPRETATION 7. Palpitations R00.2 ECG COMPLETE W INTERPRETATION 8. Back strain, sequela S39.012S cyclobenzaprine (FLEXERIL) 10 mg tablet HYDROcodone-acetaminophen (NORCO) 5-325 mg per tablet 9. DDD (degenerative disc disease), lumbar M51.36 HYDROcodone-acetaminophen (NORCO) 5-325 mg per tablet 10. Allergic contact dermatitis due to other agents L23.89 TENS patches after wears off and on for 3 days in same spot Above issues addressed with patient. Patient involved in shared decision making for management of medical issues. History and medications reviewed. Epic updated as needed Refills taken care of and meds adjusted as indicated after reviewed history, exam and labs. Health Maintenance reviewed. Updated record and/or ordered tests as recorded. Encouraged on efforts at healthy diet and regular exercise and adequate sleep. Needs to keep working on diet and exercise with lifestyle changes for effective weight loss as well as control of DM, and control of BP and lipids. Faxed ECG to Dr. Ko so aware in a flutter. She has appointment coming up, but might need to be seen sooner to make sure stays stable and does not go into a flutter with RVR. Still issues with pain control--increased pain lately. Hydrocodone can help sometimes. No signs of diversion or abuse of medication(s); no adverse effects. Continue present management. Further evaluation and treatment as indicated. Refer as indicated for PT. pain management or adolescent specialist evaluation and treatment. Aware weight loss can help with pain control. PDMP website checked and validated. All prescriptions have been APPROPRIATELY filled. No suspicious activity was identified. 09/14/2018 by Joon Reed MD The majority of the visit was spent counseling and/or coordinating care for the patient. Mhts-ei-poos time was at least 25 minutes. Joon Reed MD Referring Provider: HEATHER BERNARD ([facility]) [[id number]] Allergies As of Date: 09/14/2018 Noted Allergy Reaction AMOXICILLIN 07/14/2005 4 - Hives ASPIRIN 01/30/2009 Comments: Hives, shortness of breath SULFA (SULFONAMIDE ANTIBIOTICS) 07/14/2005 4 - Hives Date Reviewed: 09/14/2018 Reviewed by: Adilene Lynn LPN - Fully Assessed Reason for Visit: Recheck [92] Cmt: Follow up Primary Visit Diagnosis:Essential hypertension [I10] Other Visit Diagnoses:Controlled type 2 diabetes mellitus without complication, without long-term current use of insulin ([facility]) [E11.9] Atrial flutter by electrocardiogram ([facility]) [I48.92] Anticoagulated on Coumadin [Z51.81, Z79.01] Mixed hyperlipidemia [E78.2] PAF (paroxysmal atrial fibrillation) ([facility]) [I48.0] Palpitations [R00.2] Back strain, sequela [S39.012S] DDD (degenerative disc disease), lumbar [M51.36] Allergic contact dermatitis due to other agents [L23.89] Comment:TENS patches after wears off and on for 3 days in same spot Order(s):PROTHROMBIN TIME/PT [SQPT] Order #: [id number] STANDING COMP METABOLIC PANEL [SQCMP] Order #: [id number] FUTURE CBC [SQCBC] Order #: [id number] FUTURE MAGNESIUM BLD [SQMG1] Order #: [id number] FUTURE HGB A1C [JFOII9H] Order #: [id number] FUTURE ECG COMPLETE W INTERPRETATION [ECG01] Order #: [id number] FUTURE cyclobenzaprine (FLEXERIL) 10 mg tabletTake 0.5-1 tablets by mouth twice daily as needed for Muscle Spasm (may make drowsy, take before bedtime).Disp: 30 tabletRfl: 2 losartan (COZAAR) 50 mg tabletTake 1 tablet by mouth once daily. (Dr. Ko)Disp: Rfl: [] HYDROcodone-acetaminophen (NORCO) 5-325 mg per tabletTake 1-2 tablets by mouth every 8 hours as needed for up to 7 days.Disp: 30 tabletRfl: 0 [] mupirocin (BACTROBAN) 2 % creamApply 1 application to affected area three times daily for 10 days. On leg or backDisp: 1 TubeRfl: 0 Prescriptions as of 09/14/2018 Sig: CYCLOBENZAPRINE 10 MG TABLET Take 0.5-1 tablets by mouth t* LOSARTAN 50 MG TABLET Take 1 tablet by mouth once d* TRIAMCINOLONE ACETONIDE 0.1 %* Apply 1 application to affect* METFORMIN ER 500 MG TABLET,EX* Take 2 tablets by mouth twice* BUDESONIDE-FORMOTEROL HFA 160* Inhale 2 Puffs as instructed * FLECAINIDE 50 MG TABLET Take 50 mg by mouth q 12 HR. MAGNESIUM ORAL every day WARFARIN 5 MG TABLET Take 5 mg by mouth once daily. GLIMEPIRIDE 2 MG TABLET Take 1 tablet by mouth once d* ATORVASTATIN 10 MG TABLET Take 1 tablet by mouth once d* ALBUTEROL SULFATE HFA 90 MCG/* Inhale 2 Puffs as instructed * BLOOD SUGAR DIAGNOSTIC STRIPS Test glucose 1 x per day. Dx:* TENS UNIT AND ELECTRODES COMB* 1 Each once daily. TENS UNIT ELECTRODES 2 X 2 * Change pad every month as ind* HYDROCODONE 5 MG-ACETAMINOPHE* Take 1-2 tablets by mouth vanessa* MUPIROCIN 2 % TOPICAL CREAM Apply 1 application to affect* Problem List As Of Date 09/14/2018 Noted Resolved 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 Essential hypertension [I10] More... DERMATITIS NOS [L25.9] DIZZINESS AND GIDDINESS [R42] ASTHMA UNSPECIFIED [J45.909] More... CALCANEAL SPUR [M77.30] INVALID FOR* Back Strain, recurrent [S39.012A] More... Hyperlipemia [E78.5] INVALID FOR* Diabetes mellitus type 2, controlled, without c* More... Rotator cuff tear [M75.100] INVALID FOR* DDD (degenerative disc disease), lumbar [M51.36] More... Muscle spasm [M62.838] Prescriptions ordered this encounter Disp Refills Start End CYCLOBENZAPRINE 10 MG TABLET 30 t* 2 09/14/2018 Route: ORAL Sig: Take 0.5-1 tablets by mouth twice daily as needed for Muscle Spasm (may make drowsy, take before bedtime). LOSARTAN 50 MG TABLET 09/14/2018 Class: Med Update Route: ORAL Sig: Take 1 tablet by mouth once daily. (Dr. Ko) HYDROCODONE 5 MG-ACETAMINOPHEN 325 M* 30 t* 0 09/14/2018 09/21/2018 Class: Print RX Route: ORAL Sig: Take 1-2 tablets by mouth every 8 hours as needed for up to 7 days. MUPIROCIN 2 % TOPICAL CREAM 1 Tu* 0 09/14/2018 09/24/2018 Route: TOPICAL Sig: Apply 1 application to affected area three times daily for 10 days. On leg or back Medications Discontinued During This Encounter lisinopril (ZESTRIL, PRINIVIL) 5 mg * 90 t* 1 12/07/2017 09/14/2018 Sig: TAKE 1 TABLET DAILY Patient not taking: Reported on 09/01/2018 Disc: Discontinued by another Health Care Provider cyclobenzaprine (FLEXERIL) 10 mg tab* 30 t* 0 06/23/2018 09/14/2018 Route: ORAL Sig: Take 1 tablet by mouth twice daily as needed for Muscle Spasm (may make drowsy, take before bedtime). Disc: Reason for discontinue is not on file. losartan (COZAAR) 50 mg tablet 09/15/2017 09/14/2018 Class: Historical Med Sig: Disc: Reason for discontinue is not on file. HYDROcodone-acetaminophen (NORCO) 5-* 30 t* 0 07/08/2018 09/14/2018 Class: Print RX Cmt: Takes when has severe flare up of pain Route: ORAL Sig: Take 1-2 tablets by mouth every 8 hours as needed for up to 7 days. Disc: Reason for discontinue is not on file. mupirocin (BACTROBAN) 2 % cream 1 Tu* 0 12/06/2014 09/14/2018 Route: TOPICAL Sig: Apply 1 application to affected area three times daily for 10 days. On leg Disc: Reason for discontinue is not on file. Disposition: Return in about 6 months (around 03/14/2019) for 6 months follow up. Follow-up and Disposition History Recorded Encounter Status:Closed by JOON REED MD on 09/26/18 PULMONARY VISIT REPORT Observed: 09/07/2018 Status: F Source: [place] 9:51 AM [facility] of [address] [place] [address] OFFICE VISIT Date of Service: 09/07/18 MR#: [id number] Acct: [id number] Name: KEISHA RED Rep #: [id number] : 1945 Provider: Tone Alberto D.O. Age/Sex: 73/F [facility] Status: Signed Assessment AND Plan 1. Asthma, unspecified asthma severity, unspecified whether complicated, unspecified whether persistent J45.909 Plan The patient has baseline asthma, which has been well controlled on her current inhaler regimen including Symbicort and as needed albuterol. This will be continued without change. The patient has been advised to call this office with any worsening in her breathing quality and/or increased reliance on her short acting beta agonist. Of note, the patient did refuse influenza vaccination today. 2. RAMESH (obstructive sleep apnea) G47.33 Plan The patient has a known history of RAMESH, for which she was previously initiated on nocturnal Pap therapy. However, the patient became noncompliant with its use and subsequently refused therapy. Her machine was then reprocessed by her DME provider. 3. Obesity E66.9 Plan Weight loss through dietary modification and a graded exercise regimen is strongly encouraged. Plan Detail Other Orders Orders: Follow Up 6 Months (DMB) HPI HPI Comments Details: The patient is a 73-year-old female who presents to the clinic today for a routine scheduled follow-up office visit due to underlying asthma and obstructive sleep apnea. If you recall, I initially saw the patient in December 2016 when she was admitted to the hospital with a presumed asthma exacerbation. She reported having previously been diagnosed with asthma in the . A 6 minute walk test completed in December showed no evidence of exertional hypoxemia. The patient has known obstructive sleep apnea for which it was recommended that she be placed on bilevel with a pressure setting of 21/15 cm of water with humidification. Her last titration polysomnogram occurred in December 2016. Surface echocardiogram revealed mild concentric LVH with an ejection fraction of 75%. Her right ventricular systolic pressure was noted to be 47 mmHg. Pulmonary function testing completed in February 2017 demonstrated the presence of a mild restrictive ventilatory defect with a disproportionate reduction in diffusing capacity. A repeat surface echocardiogram was just completed in September 2017 and revealed normal LV size and function with an ejection fraction of 70%. The RV was noted to be normal in size and function. The right atrium was moderately enlarged. Right ventricular systolic pressure was estimated to be 38 mmHg. Although the patient has a known history of RAMESH, for which she was previously prescribed BiPAP, she discontinued the use of her PAP therapy. Her [employer] company subsequently repossessed her machine. Today, the patient reports overall stability in her breathing quality. She remains compliant with use of Symbicort twice daily. She reports that she utilizes her rescue inhaler at the most 1 time per day. She has baseline exertional dyspnea, which is unchanged from previous. She denies the presence of chest tightness, wheezing or cough. Her weight has remained stable. She is not interested in obtaining an annual influenza vaccination today. She denies fevers, chills or night sweats. She additionally denies the presence of chest pain, dizziness or lightheadedness. Intake Vital Signs09/07/18 Height 5 ft 8 in 09/07/18 Weight: 204 lb Intake Visit Reasons: 6 M FU [employer] Required: No Allergies amoxicillin Allergy (Severe, Verified 09/07/18 07:22) Hives aspirin Allergy (Severe, Verified 09/07/18 07:22) Hives, SOB Sulfa (Sulfonamide Antibiotics) Allergy (Severe, Verified 09/07/18 07:22) Hives Medications Hydrocodone Bitart/Apap 5-325 [Vernon 5/325] 1 - 2 tab PO Q6H PRN PRN #12 tab 08/14/17 [Rx Confirmed 09/07/18] magnesium oxide 400 mg capsule 400 mg PO QDAY cap 11/18/17 [History Confirmed 09/07/18] glimepiride 2 mg tablet 2 mg PO QAM 02/13/18 [History Confirmed 09/07/18] losartan 50 mg tablet 50 mg PO QDAY 02/13/18 [History Confirmed 09/07/18] metformin 500 mg tablet 500 mg PO BID tab 02/13/18 [History Confirmed 09/07/18] albuterol sulfate HFA 90 mcg/actuation aerosol inhaler 2 puff INHALATION Q6H PRN #1 device 02/25/18 [Rx Confirmed 09/07/18] atorvastatin 10 mg tablet 10 mg PO QHS #90 tab 05/06/18 [Rx Confirmed 09/07/18] warfarin 5 mg tablet 5 mg PO .COMPLEX #100 tab 05/24/18 [Rx Confirmed 09/07/18] flecainide 50 mg tablet 50 mg PO Q12H #180 tab 09/01/18 [Rx Confirmed 09/07/18] PFSH Medical History Hyperlipidemia (Chronic) 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) Obesity (Chronic) Diabetes mellitus (Chronic) Other secondary pulmonary hypertension (Chronic) RAMESH (obstructive sleep apnea) (Chronic) Asthma (Chronic) Viral URI with cough (Acute) USP (current) use of anticoagulants (Chronic) Atrial fibrillation (Chronic) Cystitis (Acute) Allergic rhinitis (Chronic) BMI 33.0-33.9,adult (Chronic) Contact dermatitis and other eczema (Chronic) DDD (degenerative disc disease) (Chronic) Dizziness and giddiness (Chronic) Hx of bladder infections (Chronic) Hypersomnia (Chronic) RAMESH (obstructive sleep apnea) (Chronic) Palpitations (Chronic) Shoulder dislocation (Chronic) Surgical History History of kidney surgery (Chronic) History of appendectomy (Chronic) Family History Mother Diabetes Father CAD (coronary artery disease) Sister Lung cancer Son Kidney stone Social History Smoking Status: Never smoker alcohol intake: never substance use type: does not use Review of Systems Const CONSTITUTIONAL: Negative anorexia, body ache, chills, daytime sleepiness, fever(s), night sweats, oral thrush, stops breathing during sleep, weight loss, sleeping in chair, fatigue, weight loss, weight gain, frequent colds, seasonal allergies, other, headache(s) or orthopnea EETM Ear Nose Throat Mouth: Positive hearing normal; negative hard of hearing, hoarseness, dry mouth in morning, change in vision, itchy eyes, eye pain, swallowing Difficulty, ear pain, nose bleed, headache(s), mouth pain, nasal congestion, nasal discharge, post nasal drip, sinus pain, sinus pressure, sore throat or other Cardio Cardiovascular: Negative chest pain, chest pain at rest, chest pain with activity, irregular heart rhythm, edema, shortness of breath when lying down, palpitations, murmur or other Resp Respiratory: Positive as per HPI, shortness of breath shortness of breath: Positive with activity and inhalers; negative pain with cough, wheezing, chest congestion, cough, chest tightness, pain on inspiration, increase use of rescue inhalers, snoring, apnea or other Gastro Gastrointestional: Negative bloody stools, change in appetite, difficulty swallowing, reflux, hematemesis, melena stool, loose stool, constipation or other Genitourinary: Negative blood in urine, nocturia, pain with urination or other Musc Musculoskeletal: Negative body pain, back pain, neck pain or other Skin/Breast Skin/Breast: Negative dry skin, itching, rash, unusual bruising, breast lump or other Neuro Neurological: Negative restless legs, confusion, weakness or other Psych Psychocological: Negative abnormal sleep pattern, anxiety, thoughts of hurting self/others, hopelessness or other Lymph Lymphatic: Negative easy bleeding, easy bruising, swollen lymph nodes or other Exam Const Constitutional: Positive conversant, cooperative, in no acute respiratory distress, well developed, well nourished and good hygiene Head Head: Positive normocephalic and atraumatic; negative cyanosis of lips/distal nose Eyes Eye: Positive clear conjunctiva; negative nystagmus or scleral abnormality Ears Ear: Positive hearing normal and external ears normal; negative hard of hearing Nose Nose: Positive external nose normal; negative epistaxis Mouth Mouth: Positive oral mucosae normal and posterior oropharynx is adequate; negative no lesions or post nasal drip Mallampati Score: II: Mallampati Score Neck Neck: Positive normal visual inspection and trachea midline; negative lymphadenopathy Chest Wall Chest: Positive symmetric chest movement Normal AP diameter. Resp lung sounds: Positive clear to auscultation, good air exchange and normal expiratory time; negative wheezes, rhonchi or rales Cardio Cardiac: Positive regular rate, regular rhythm, S1 normal and S2 normal; negative rub, gallop or murmur GI GI: Positive normal bowel sounds Soft without distention Genitourinary: Positive deferred Musc Musculoskeletal: Positive steady gait Skin Pulmonary Skin Exam: Positive intact; negative lesion, ulcers, dermal atrophy or rash Pulses Pulse: Yes Pedal pulses present: Extremities Extremities: No clubbing, No cyanosis, No edema Neuro Neurologic: Yes conversant, Yes no focal neuro deficits, Yes cooperative Lymph Lymphatic: No lymphadenopathy Psych Appearance: Positive grossly normal Mental Status: Positive mental status grossly normal Mood: Positive congruent mood Affect: Positive normal affect Coding Level of Care Code Off vis,est,level 3 Diagnoses Asthma, unspecified asthma severity, unspecified whether complicated, unspecified whether persistent J45.909 Asthma complication type: unspecified Asthma persistence: unspecified Asthma severity: unspecified severity RAMESH (obstructive sleep apnea) G47.33 Obesity E66.9 09/07/18 0951 <Electronically signed by Tone Alberto DO> Date Tone Alberto DO Cosigner Signature: Date (if applicable) CC: Joon Reed MD PROGRESS Observed: 09/01/2018 Status: COMPLETED Source: [place] 9:50 AM [facility] REPOSITORY HNO ID: [id number] Author: Heather (Domingo) Older Service: (none) Author Type: Nurse Practitioner Type: Progress Notes Filed: 09/01/2018 9:59 AM Note Text: CC: Patient presents with: red back from tens unit HPI Keisha Red is a 73 year old female who presents today for rash on back and flare up of chronic back pain. Rash Duration: 5 days. Location: left side of back Itching or Pain: itching. Ever had a rash like this before: YES, uses TENS unit for back pain. After every prolonged use she develops a rash where the unit was attached. She is allergic to the adhesive on the TENS patches. Changes in soaps or detergents: No. New medications or foods: No Treatments: Nothing Chronic back pain: Flared up one week ago. Always gets worse with changes in weather. Pain is located along the lower back, described as stabbing. Has treated with TENS unit and heat with partial relief. Takes hydrocodone sparingly for severe pain and Flexeril for muscle spasms with good relief. No new back symptoms. No injury or heavy lifting. No bowel/bladder incontinence. No leg numbness, tingling or weakness. 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 Agudelo - Dizziness and giddiness - Muscle spasm - Obesity, unspecified - Palpitations - Shoulder dislocation 12/06/11 Right shoulder s/p fall with reduction at [facility] - Type II or unspecified type diabetes mellitus without mention of complication, not stated as uncontrolled - Unspecified asthma(493.90) - Unspecified essential hypertension PAST SURGICAL HISTORY Procedure Laterality Date - APPENDECTOMY 1970s ALLERGIES Amoxicillin; Aspirin; Sulfa (Sulfonamide Antibiotics) MEDICATIONS triamcinolone acetonide (KENALOG) 0.1 % cream Apply 1 application to affected area three times daily as needed. For rash on extremitites and leg metFORMIN ER (GLUCOPHAGE XR) 500 mg 24 hr tablet Take 2 tablets by mouth twice daily with meals. cyclobenzaprine (FLEXERIL) 10 mg tablet Take 1 tablet by mouth twice daily as needed for Muscle Spasm (may make drowsy, take before bedtime). budesonide-formoterol (SYMBICORT) 160-4.5 mcg/actuation inhaler Inhale 2 Puffs as instructed twice daily. flecainide (TAMBOCOR) 50 mg tablet Take 50 mg by mouth q 12 HR. MAGNESIUM ORAL every day warfarin (COUMADIN) 5 mg tablet Take 5 mg by mouth once daily. losartan (COZAAR) 50 mg tablet glimepiride (AMARYL) 2 mg tablet Take 1 tablet by mouth once daily as needed. for blood sugar over 200. atorvastatin (LIPITOR) 10 mg tablet Take 1 tablet by mouth once daily. albuterol HFA (PROAIR HFA) 90 mcg/actuation inhaler Inhale 2 Puffs as instructed every 4 hours as needed. blood sugar diagnostic (RELION PRIME TEST STRIPS) test strip Test glucose 1 x per day. Dx: 250.00. Insulin use: no TENS unit and electrodes cmpk 1 Each once daily. TENS UNIT ELECTRODES (TENS UNITS ELECTRODES) 2X2 pads Change pad every month as indicated predniSONE (DELTASONE) 10 mg tablet Take 4 tabs daily for 3 days, then 2 tabs daily for 3 days, then 1 tab daily for 3 days with food. lisinopril (ZESTRIL, PRINIVIL) 5 mg tablet TAKE 1 TABLET DAILY FAMILY HISTORY Problem Relation Age of Onset - Diabetes Mother - Coronary Artery Disease Father - Cancer Sister lung - other (nephrolithiasis [Other]) Son Social History Substance Use Topics - Smoking status: Never Smoker - Smokeless tobacco: Never Used - Alcohol use No PHYSICAL EXAM BP 150/78 Pulse (!) 56 Temp 36.9 ?C (98.4 ?F) (Tympanic) Resp 12 Wt 91.6 kg (202 lb) BMI 32.60 kg/m? General Appearance: well appearing, in no acute distress, alert Back: Tenderness with palpation of lumbar paraspinal muscles, pain is reproducible. Red scabbed over papules clustered in rectangular pattern on the right side of her upper and lower back. ASSESSMENT/PLAN: 1. Acute exacerbation of chronic low back pain - ICD9: 724.2, 338.19, 338.29, ICD10: M54.5, G89.29 (primary diagnosis) No alarm symptoms - Patient unable to take NSAID's due to ASA allergy. Does not want to take hydrocodone frequently. Start prednisone, see orders. Cautioned that blood sugars may be higher than usual while taking, see patient instructions - Reviewed non-medication measures: Ice for localized tenderness. Warm moist heat for 20 min three times a day. Gentle stretching. Massage. - Follow-up in office in one week if no improvement, sooner if worsening 2. Allergic contact dermatitis due to adhesives - ICD9: 692.4, ICD10: L23.1 Typical rash secondary to TENS unit per patient - Avoid using TENS unit until rash has cleared - Start oral Steriod tx for rash and back pain as above - Anti itch therapy of OTC 1% Hydrocortisone cream recommended prn - discussed skin care of rash - follow up if symptoms persist or worsen. - PREDNISONE 10 MG TABLET Prescription instructions reviewed with patient as applicable. Potential red flag symptoms discussed with the patient. Reviewed appropriate action plan to take if red flag symptoms occur. Patient agreeable to treatment plan. Heather Bernard APRN.CNP CNOV Observed: 09/01/2018 Status: COMPLETED Source: [place] 9:00 AM [facility] REPOSITORY Office Visit (INTMWS) KEISHA RED ([id number]) 1945 F Date Time Provider Department 09/01/18 9:00 AM HEATHER BERNARD (DOMINGO) INTMWS During your visit today, we recorded the following information about you: Temperature Pulse Respiration Blood pressure 98.4 degrees 56/minute 12/minute 150/78 Weight 91.6 kg Heather Bernard APRN.CNP 09/01/2018 9:32 AM Addendum Start Prednisone for rash and back pain. This will likely cause your blood sugars to be higher than usual. Take glimepiride as needed per prescription instructions. Call office if blood sugars are consistently in the high 200's. Can use Kenalog cream on the rash as needed for itching Heather Bernard APRN.CNP 09/01/2018 9:59 AM Signed CC: Patient presents with: red back from tens unit HPI Keisha Red is a 73 year old female who presents today for rash on back and flare up of chronic back pain. Rash Duration: 5 days. Location: left side of back Itching or Pain: itching. Ever had a rash like this before: YES, uses TENS unit for back pain. After every prolonged use she develops a rash where the unit was attached. She is allergic to the adhesive on the TENS patches. Changes in soaps or detergents: No. New medications or foods: No Treatments: Nothing Chronic back pain: Flared up one week ago. Always gets worse with changes in weather. Pain is located along the lower back, described as stabbing. Has treated with TENS unit and heat with partial relief. Takes hydrocodone sparingly for severe pain and Flexeril for muscle spasms with good relief. No new back symptoms. No injury or heavy lifting. No bowel/bladder incontinence. No leg numbness, tingling or weakness. 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 Agudelo - Dizziness and giddiness - Muscle spasm - Obesity, unspecified - Palpitations - Shoulder dislocation 12/06/11 Right shoulder s/p fall with reduction at [facility] - Type II or unspecified type diabetes mellitus without mention of complication, not stated as uncontrolled - Unspecified asthma(493.90) - Unspecified essential hypertension PAST SURGICAL HISTORY Procedure Laterality Date - APPENDECTOMY 1970s ALLERGIES Amoxicillin; Aspirin; Sulfa (Sulfonamide Antibiotics) MEDICATIONS triamcinolone acetonide (KENALOG) 0.1 % cream Apply 1 application to affected area three times daily as needed. For rash on extremitites and leg metFORMIN ER (GLUCOPHAGE XR) 500 mg 24 hr tablet Take 2 tablets by mouth twice daily with meals. cyclobenzaprine (FLEXERIL) 10 mg tablet Take 1 tablet by mouth twice daily as needed for Muscle Spasm (may make drowsy, take before bedtime). budesonide-formoterol (SYMBICORT) 160-4.5 mcg/actuation inhaler Inhale 2 Puffs as instructed twice daily. flecainide (TAMBOCOR) 50 mg tablet Take 50 mg by mouth q 12 HR. MAGNESIUM ORAL every day warfarin (COUMADIN) 5 mg tablet Take 5 mg by mouth once daily. losartan (COZAAR) 50 mg tablet glimepiride (AMARYL) 2 mg tablet Take 1 tablet by mouth once daily as needed. for blood sugar over 200. atorvastatin (LIPITOR) 10 mg tablet Take 1 tablet by mouth once daily. albuterol HFA (PROAIR HFA) 90 mcg/actuation inhaler Inhale 2 Puffs as instructed every 4 hours as needed. blood sugar diagnostic (RELION PRIME TEST STRIPS) test strip Test glucose 1 x per day. Dx: 250.00. Insulin use: no TENS unit and electrodes cmpk 1 Each once daily. TENS UNIT ELECTRODES (TENS UNITS ELECTRODES) 2X2 pads Change pad every month as indicated predniSONE (DELTASONE) 10 mg tablet Take 4 tabs daily for 3 days, then 2 tabs daily for 3 days, then 1 tab daily for 3 days with food. lisinopril (ZESTRIL, PRINIVIL) 5 mg tablet TAKE 1 TABLET DAILY FAMILY HISTORY Problem Relation Age of Onset - Diabetes Mother - Coronary Artery Disease Father - Cancer Sister lung - other (nephrolithiasis [Other]) Son Social History Substance Use Topics - Smoking status: Never Smoker - Smokeless tobacco: Never Used - Alcohol use No PHYSICAL EXAM BP 150/78 Pulse (!) 56 Temp 36.9 ?C (98.4 ?F) (Tympanic) Resp 12 Wt 91.6 kg (202 lb) BMI 32.60 kg/m? General Appearance: well appearing, in no acute distress, alert Back: Tenderness with palpation of lumbar paraspinal muscles, pain is reproducible. Red scabbed over papules clustered in rectangular pattern on the right side of her upper and lower back. ASSESSMENT/PLAN: 1. Acute exacerbation of chronic low back pain - ICD9: 724.2, 338.19, 338.29, ICD10: M54.5, G89.29 (primary diagnosis) No alarm symptoms - Patient unable to take NSAID's due to ASA allergy. Does not want to take hydrocodone frequently. Start prednisone, see orders. Cautioned that blood sugars may be higher than usual while taking, see patient instructions - Reviewed non-medication measures: Ice for localized tenderness. Warm moist heat for 20 min three times a day. Gentle stretching. Massage. - Follow-up in office in one week if no improvement, sooner if worsening 2. Allergic contact dermatitis due to adhesives - ICD9: 692.4, ICD10: L23.1 Typical rash secondary to TENS unit per patient - Avoid using TENS unit until rash has cleared - Start oral Steriod tx for rash and back pain as above - Anti itch therapy of OTC 1% Hydrocortisone cream recommended prn - discussed skin care of rash - follow up if symptoms persist or worsen. - PREDNISONE 10 MG TABLET Prescription instructions reviewed with patient as applicable. Potential red flag symptoms discussed with the patient. Reviewed appropriate action plan to take if red flag symptoms occur. Patient agreeable to treatment plan. Heather Bernard APRN.ADJUNCT SPANISH INSTRUCTOR Referring Provider: SELF [200] Allergies As of Date: 09/01/2018 Noted Allergy Reaction AMOXICILLIN 07/14/2005 4 - Hives ASPIRIN 01/30/2009 Comments: Hives, shortness of breath SULFA (SULFONAMIDE ANTIBIOTICS) 07/14/2005 4 - Hives Date Reviewed: 09/01/2018 Reviewed by: Andry Carrera Ma - Fully Assessed Reason for Visit: red back from tens unit [Other] Primary Visit Diagnosis:Acute exacerbation of chronic low back pain [M54.5, G89.29] Other Visit Diagnosis:Allergic contact dermatitis due to adhesives [L23.1] Order(s):predniSONE (DELTASONE) 10 mg tabletTake 4 tabs daily for 3 days, then 2 tabs daily for 3 days, then 1 tab daily for 3 days with food.Disp: 21 tabletRfl: 0 Prescriptions as of 09/01/2018 Sig: TRIAMCINOLONE ACETONIDE 0.1 %* Apply 1 application to affect* METFORMIN ER 500 MG TABLET,EX* Take 2 tablets by mouth twice* CYCLOBENZAPRINE 10 MG TABLET Take 1 tablet by mouth twice * BUDESONIDE-FORMOTEROL HFA 160* Inhale 2 Puffs as instructed * FLECAINIDE 50 MG TABLET Take 50 mg by mouth q 12 HR. MAGNESIUM ORAL every day WARFARIN 5 MG TABLET Take 5 mg by mouth once daily. LOSARTAN 50 MG TABLET GLIMEPIRIDE 2 MG TABLET Take 1 tablet by mouth once d* ATORVASTATIN 10 MG TABLET Take 1 tablet by mouth once d* ALBUTEROL SULFATE HFA 90 MCG/* Inhale 2 Puffs as instructed * BLOOD SUGAR DIAGNOSTIC STRIPS Test glucose 1 x per day. Dx:* TENS UNIT AND ELECTRODES COMB* 1 Each once daily. TENS UNIT ELECTRODES 2 X 2 * Change pad every month as ind* PREDNISONE 10 MG TABLET Take 4 tabs daily for 3 days,* LISINOPRIL 5 MG TABLET TAKE 1 TABLET DAILY Patient not taking: Reported on 09/01/2018 Problem List As Of Date 09/01/2018 Noted Resolved 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 Essential hypertension [I10] More... DERMATITIS NOS [L25.9] DIZZINESS AND GIDDINESS [R42] ASTHMA UNSPECIFIED [J45.909] More... CALCANEAL SPUR [M77.30] INVALID FOR* Back Strain, recurrent [S39.012A] More... Hyperlipemia [E78.5] INVALID FOR* Diabetes mellitus type 2, controlled, without c* More... Rotator cuff tear [M75.100] INVALID FOR* DDD (degenerative disc disease), lumbar [M51.36] More... Muscle spasm [M62.838] Other instructions from your clinician: Start Prednisone for rash and back pain. This will likely cause your blood sugars to be higher than usual. Take glimepiride as needed per prescription instructions. Call office if blood sugars are consistently in the high 200's. Can use Kenalog cream on the rash as needed for itching Prescriptions ordered this encounter Disp Refills Start End PREDNISONE 10 MG TABLET 21 t* 0 09/01/2018 09/10/2018 Sig: Take 4 tabs daily for 3 days, then 2 tabs daily for 3 days, then 1 tab daily for 3 days with food. Encounter Status:Closed by HEATHER BRENARD CNP on 09/01/18 FECAL OCCULT BLD Collected: 08/04/2018 Status: F Source: [facility] 8:00 AM [facility] REPOSITORY TYPE CODE TESTS RESULT OUT OF REFERENCE UNITS RANGE LAB IFO Negative Immuno Negative FOB Result Comment: This test was developed and its performance characteristics determined by [facility] [place] ([facility]). It has not been cleared or approved by the FDA. -[facility] is regulated under CLIA as qualified to perform high-complexity testing. This test is used for clinical purposes. It should not be regarded as investigational or for research. Performed By: #### IFOBT #### [facility] [address] [place], [place] [address] [facility] Observed: 07/20/2018 Status: COMPLETED Source: [place] 12:00 AM [facility] REPOSITORY Telephone (ASWSTR) KEISHA RED ([id number]) 1945 F Date Time Provider Department 07/20/18 JOON REED ASWS During your visit today, we recorded the following information about you: Sarita Brewer RN, RN 07/20/2018 10:23 AM Signed Patient is overdue for screening colonoscopy. Due to patient's medical history, patient needs consultation first. Please schedule with Ana Hunt NP. VLAD Reynolds Cox [place] 07/21/2018 10:29 AM Signed Called and spoke to Pt - Pt declines colonoscopy consult at this time; Pt agreed to the IFOBT. Please review pending order. Joon Reed MD 07/22/2018 7:32 PM Signed Tra Vega LPN 07/26/2018 1:56 PM Signed Patient notified of results and provider's instructions. Patient verbalizes understanding. Sandy Vega LPN Allergies As of Date: 07/20/2018 Noted Allergy Reaction AMOXICILLIN 07/14/2005 4 - Hives ASPIRIN 01/30/2009 Comments: Hives, shortness of breath SULFA (SULFONAMIDE ANTIBIOTICS) 07/14/2005 4 - Hives Date Reviewed: 07/08/2018 Reviewed by: Adilene Lynn LPN - Fully Assessed Reason for Visit: Outpatient Colonoscopy [482] Primary Visit Diagnosis:Colon cancer screening [Z12.11] Order(s):FECAL OCCULT BLOOD TEST [SQIFOBT] Order #: [id number] FUTURE Prescriptions as of 07/20/2018 Sig: TRIAMCINOLONE ACETONIDE 0.1 %* Apply 1 application to affect* METFORMIN ER 500 MG TABLET,EX* Take 2 tablets by mouth twice* CYCLOBENZAPRINE 10 MG TABLET Take 1 tablet by mouth twice * BUDESONIDE-FORMOTEROL HFA 160* Inhale 2 Puffs as instructed * FLECAINIDE 50 MG TABLET Take 50 mg by mouth q 12 HR. MAGNESIUM ORAL every day LISINOPRIL 5 MG TABLET TAKE 1 TABLET DAILY WARFARIN 5 MG TABLET Take 5 mg by mouth once daily. LOSARTAN 50 MG TABLET GLIMEPIRIDE 2 MG TABLET Take 1 tablet by mouth once d* ATORVASTATIN 10 MG TABLET Take 1 tablet by mouth once d* ALBUTEROL SULFATE HFA 90 MCG/* Inhale 2 Puffs as instructed * BLOOD SUGAR DIAGNOSTIC STRIPS Test glucose 1 x per day. Dx:* TENS UNIT AND ELECTRODES COMB* 1 Each once daily. TENS UNIT ELECTRODES 2 X 2 * Change pad every month as ind* Problem List As Of Date 07/20/2018 Noted Resolved 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 Essential hypertension [I10] More... DERMATITIS NOS [L25.9] DIZZINESS AND GIDDINESS [R42] ASTHMA UNSPECIFIED [J45.909] More... CALCANEAL SPUR [M77.30] INVALID FOR* Back Strain, recurrent [S39.012A] More... Hyperlipemia [E78.5] INVALID FOR* Diabetes mellitus type 2, controlled, without c* More... Rotator cuff tear [M75.100] INVALID FOR* DDD (degenerative disc disease), lumbar [M51.36] More... Muscle spasm [M62.838] Encounter Status:Closed by SANDY VEGA LPN on 07/26/18 LIVER PROFILE Collected: 07/19/2018 Status: F Source: [place] 8:45 AM [facility] [place] TYPE CODE TESTS RESULT OUT OF RANGE REFERENCE UNITS LAB L501.1500 6.4-8.2 g/dL Normal T PROT 7.7 LAB L501.1800 3.2-5.0 g/dL Normal ALB 3.8 LAB L501.1950 2.2-4.2 g/dL Normal GLOB 3.9 LAB L501.4100 15-37 U/L Normal AST 20 LAB L501.4305 45-117 U/L Normal ALK P 96 LAB L501.4405 13-56 U/L Normal ALT 23 LAB L501.4600 0.20-1.00 mg/dL Normal T BILI 0.60 LAB L501.4700 0.00-0.30 mg/dL Normal D BILI 0.16 Performed By: #### L500.3400, L500.4100 #### [facility] [address] [facility]. [place], [place], [id number] LIPID PROFILE Collected: 07/19/2018 Status: F Source: [place]IAM 8:45 AM [facility] [place] [facility] TYPE CODE TESTS RESULT OUT OF RANGE REFERENCE UNITS LAB L501.4900 200 mg/dL Normal CHOL 139 Result Comment: <200 mg/dL Desirable 200-240 mg/dL Borderline >240 mg/dL High Risk LAB L501.5000 mg/dL Normal TRIG 173 Result Comment: The drugs N-Acetylcysteine and Metamizole may falsely depress this assay. Serum Triglycerides Reference Interval Normal <150 mg/dL Borderline high 150 - 199 mg/dL High 200 - 499 mg/dL Very High > or = 500 mg/dL LAB L501.6400 mg/dL Normal HDL 57 Result Comment: The drugs N-Acetylcysteine and Metamizole may falsely depress this assay. Reference Range HDL <40 mg/dL Low HDL Cholesterol HDL >or= 60 mg/dL High HDL Cholesterol LAB L501.6500 0-130 mg/dL Normal LDL 47 LAB L501.6600 5-40 mg/dL Normal VLDL 35 Performed By: #### L500.3400, L500.4100 #### [facility] [address] [facility]. [place], [place], [address] PROGRESS Observed: 07/08/2018 Status: COMPLETED Source: JAGDISH 11:25 AM [facility] REPOSITORY HNO ID: [id number] Author: Joon Reed Service: (none) Author Type: Physician Type: Progress Notes Filed: 07/22/2018 11:52 PM Note Text: Notes: Last 5 Encounter BP Readings: Date: BP: 07/08/2018 161/80 02/02/2018 166/82 09/29/2017 120/60 01/01/2017 130/84 09/25/2016 124/80 Last 5 Encounter Wt Readings: Date: Wt: 02/02/2018 96.6 kg (213 lb) 09/29/2017 91.6 kg (202 lb) 01/01/2017 99.8 kg (220 lb) 09/25/2016 100.7 kg (222 lb) 04/30/2016 100.2 kg (221 lb) Patient seen after DM SMA to address a few issues one on one. 07/08/18 1015 07/08/18 1219 BP: 161/80 134/74 Pulse: (!) 56 Resp: 20 BP improved on recheck Raised pink and scaly/crusty lesion on left villagomez--about 2 cm diameter (been there a few months) Noted healed abrasion medial left ankle (had bled a lot initially). Has history of stasis dermatitis both legs, left usually worse than right. PDMP website checked and validated. All prescriptions have been APPROPRIATELY filled. No suspicious activity was identified. 07/08/2018 by Joon Reed MD 30 pills of hydrocodone can last up to 6 months if no bad flare ups. Usually no more than 2 in a day. PROGRESS Observed: 07/08/2018 Status: COMPLETED Source: POTOSI 10:00 AM [facility] REPOSITORY HNO ID: [id number] Author: Joon Reed Service: (none) Author Type: Physician Type: Progress Notes Filed: 07/22/2018 11:52 PM Note Text: Patient presents for DM SMA with Dr. Reed and Cristal Vu, OtfD GOALS: A1c < 8% Doing well on just metformin, has not had to take the glimepiride at all (PRN BG > 200) Has had a low sugar in the past, but not recently Treated the low with a candy bar Does drink regular pop regularly, has not been able to change to diet, sugars still doing well despite the pop Doing well overall ? Patient denies CP, SOB, RIVERO, blurred vision, dizziness or lightheadedness ? Patient denies symptoms of hypoglycemia (sweating, anxiety, palpitations, hunger, and tremor) ? Patient denies symptoms hyperglycemia (polyuria, polydipsia) ? 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 Agudelo - Dizziness and giddiness - Muscle spasm - Obesity, unspecified - Palpitations - Shoulder dislocation 12/06/11 Right shoulder s/p fall with reduction at [facility] - Type II or unspecified type diabetes mellitus without mention of complication, not stated as uncontrolled - Unspecified asthma(493.90) - Unspecified essential hypertension Current Outpatient Prescriptions: cyclobenzaprine (FLEXERIL) 10 mg tablet Take 1 tablet by mouth twice daily as needed for Muscle Spasm (may make drowsy, take before bedtime). metFORMIN ER (GLUCOPHAGE XR) 500 mg 24 hr tablet TAKE 2 TABLETS TWICE A DAY WITH MEALS mometasone-formoterol (DULERA) 200-5 mcg/actuation inhaler Inhale 2 Puffs as instructed twice daily. budesonide-formoterol (SYMBICORT) 160-4.5 mcg/actuation inhaler Inhale 2 Puffs as instructed twice daily. flecainide (TAMBOCOR) 50 mg tablet Take 50 mg by mouth q 12 HR. MAGNESIUM ORAL every day lisinopril (ZESTRIL, PRINIVIL) 5 mg tablet TAKE 1 TABLET DAILY warfarin (COUMADIN) 5 mg tablet Take 5 mg by mouth once daily. losartan (COZAAR) 50 mg tablet glimepiride (AMARYL) 2 mg tablet Take 1 tablet by mouth once daily as needed. for blood sugar over 200. atorvastatin (LIPITOR) 10 mg tablet Take 1 tablet by mouth once daily. albuterol HFA (PROAIR HFA) 90 mcg/actuation inhaler Inhale 2 Puffs as instructed every 4 hours as needed. triamcinolone acetonide (KENALOG) 0.1 % cream Apply 1 application to affected area three times daily as needed. On left leg. Use this after severe flare up controlled with betamethasone blood sugar diagnostic (RELION PRIME TEST STRIPS) test strip Test glucose 1 x per day. Dx: 250.00. Insulin use: no TENS unit and electrodes cmpk 1 Each once daily. TENS UNIT ELECTRODES (TENS UNITS ELECTRODES) 2X2 pads Change pad every month as indicated No current facility-administered medications for this visit. VITALS: BP 134/74 Pulse (!) 56 Resp 20 Last 3 Encounter BP Readings: Date: BP: 02/02/2018 166/82 09/29/2017 120/60 01/01/2017 130/84 Wt: 96.6 kg (213 lb) BMI: 34.38 kg/(m2) LABS Lab Results Component Value Date HBA1C 5.7 07/02/2018 HBA1C 6.1 09/29/2017 HBA1C Test sent to [facility]. 03/26/2017 CMP: Glucose 110 07/02/2018 BUN 13 07/02/2018 Creatinine 0.94 07/02/2018 Sodium 140 07/02/2018 Potassium 4.1 07/02/2018 Chloride 103 07/02/2018 CO2 25 07/02/2018 Protein, Total 7.3 07/02/2018 Albumin 4.3 07/02/2018 Calcium 9.7 07/02/2018 Alkaline Phosphatase 70 07/02/2018 Bilirubin, Total 0.7 07/02/2018 AST 20 07/02/2018 ALT 13 07/02/2018 Last Lipid Panel Lab Results Component Value Date CHOL 135 07/02/2018 Lab Results Component Value Date HDL 54 07/02/2018 Lab Results Component Value Date LDL 53 07/02/2018 Lab Results Component Value Date TG 141 07/02/2018 Albumin/Creat Ratio (mg/g) Date Value 07/02/2018 19 ASSESSMENT/PLAN: 1. Controlled type 2 diabetes mellitus without complication, without long-term current use of insulin (HCC) - ICD9: 250.00, ICD10: E11.9 (primary diagnosis) Controlled. Discussed appropriate treatment of hypoglycemia with rule of 15, eating hard candy, glucose tablets, or pop/fruit juice instead of a candy bar, explained th e delay on sugar absorption by the fat/protein content in candy bars. Patient expresses understanding - Continue current medications - Blood glucose monitoring on a once a day schedule 2. Venous stasis dermatitis of left lower extremity - ICD9: 454.1, ICD10: I87.2 Further evaluation and treatment as indicated. - TRIAMCINOLONE ACETONIDE 0.1 % TOPICAL CREAM 3. Rash of neck - ICD9: 782.1, ICD10: R21 Discussed management Further evaluation and treatment as indicated. - TRIAMCINOLONE ACETONIDE 0.1 % TOPICAL CREAM 4. Flexural atopic dermatitis - ICD9: 691.8, ICD10: L20.89 - Cont/resume topical steriod tx with see orders - BID use of recommended emollients such as Cetaphil, Eucerin Plus, Aveeno, Aquaphor - Follow up if symptoms persist or worsen. - TRIAMCINOLONE ACETONIDE 0.1 % TOPICAL CREAM 5. Essential hypertension - ICD9: 401.9, ICD10: I10 - good control - Continue current medication(s) - Recommended regular aerobic exercise. - Recommend home blood pressure monitoring, to bring results in on next visit - Discussed need and benefit for weight loss. - Goal of BP <130/80 6. Back strain, sequela - ICD9: 905.7, ICD10: S39.012S Does not need pain med often but helps to have on hand as noted in my notes. - HYDROCODONE 5 MG-ACETAMINOPHEN 325 MG TABLET 7. DDD (degenerative disc disease), lumbar - ICD9: 722.52, ICD10: M51.36 Chronic low back pain - Patient given instructions use of medications as ordered, intermittent rest and weight loss - HYDROCODONE 5 MG-ACETAMINOPHEN 325 MG TABLET Patient is scheduled to see PCP 11/04/18 . Patient to return to clinic for PharmD f/u 11/04/18 . Patient verbalized understanding of instructions. Dr. Reed and Cristal Vu, [place] The patient was seen, chart reviewed and I concur with the above evaluation and plan. Reviewed with [facility] group management of DM. Joon Reed MD CNOV Observed: 07/08/2018 Status: COMPLETED Source: [place] 10:00 AM [facility] REPOSITORY Office Visit (INTMWS) ZAYKEISHA SANTOYO ([id number]) 1945 F Date Time Provider Department 07/08/18 10:00 AM JOON REED During your visit today, we recorded the following information about you: Pulse Respiration Blood pressure 56/minute 20/minute 134/74 Joon Reed MD 07/22/2018 11:52 PM Signed Patient presents for DM SMA with Dr. Reed and Cristal Vu, OtfD GOALS: A1c < 8% Doing well on just metformin, has not had to take the glimepiride at all (PRN BG > 200) Has had a low sugar in the past, but not recently Treated the low with a candy bar Does drink regular pop regularly, has not been able to change to diet, sugars still doing well despite the pop Doing well overall ? Patient denies CP, SOB, RIVERO, blurred vision, dizziness or lightheadedness ? Patient denies symptoms of hypoglycemia (sweating, anxiety, palpitations, hunger, and tremor) ? Patient denies symptoms hyperglycemia (polyuria, polydipsia) ? 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 Agudelo - Dizziness and giddiness - Muscle spasm - Obesity, unspecified - Palpitations - Shoulder dislocation 12/06/11 Right shoulder s/p fall with reduction at [facility] - Type II or unspecified type diabetes mellitus without mention of complication, not stated as uncontrolled - Unspecified asthma(493.90) - Unspecified essential hypertension Current Outpatient Prescriptions: cyclobenzaprine (FLEXERIL) 10 mg tablet Take 1 tablet by mouth twice daily as needed for Muscle Spasm (may make drowsy, take before bedtime). metFORMIN ER (GLUCOPHAGE XR) 500 mg 24 hr tablet TAKE 2 TABLETS TWICE A DAY WITH MEALS mometasone-formoterol (DULERA) 200-5 mcg/actuation inhaler Inhale 2 Puffs as instructed twice daily. budesonide-formoterol (SYMBICORT) 160-4.5 mcg/actuation inhaler Inhale 2 Puffs as instructed twice daily. flecainide (TAMBOCOR) 50 mg tablet Take 50 mg by mouth q 12 HR. MAGNESIUM ORAL every day lisinopril (ZESTRIL, PRINIVIL) 5 mg tablet TAKE 1 TABLET DAILY warfarin (COUMADIN) 5 mg tablet Take 5 mg by mouth once daily. losartan (COZAAR) 50 mg tablet glimepiride (AMARYL) 2 mg tablet Take 1 tablet by mouth once daily as needed. for blood sugar over 200. atorvastatin (LIPITOR) 10 mg tablet Take 1 tablet by mouth once daily. albuterol HFA (PROAIR HFA) 90 mcg/actuation inhaler Inhale 2 Puffs as instructed every 4 hours as needed. triamcinolone acetonide (KENALOG) 0.1 % cream Apply 1 application to affected area three times daily as needed. On left leg. Use this after severe flare up controlled with betamethasone blood sugar diagnostic (RELION PRIME TEST STRIPS) test strip Test glucose 1 x per day. Dx: 250.00. Insulin use: no TENS unit and electrodes cmpk 1 Each once daily. TENS UNIT ELECTRODES (TENS UNITS ELECTRODES) 2X2 pads Change pad every month as indicated No current facility-administered medications for this visit. VITALS: BP 134/74 Pulse (!) 56 Resp 20 Last 3 Encounter BP Readings: Date: BP: 02/02/2018 166/82 09/29/2017 120/60 01/01/2017 130/84 Wt: 96.6 kg (213 lb) BMI: 34.38 kg/(m2) LABS Lab Results Component Value Date HBA1C 5.7 07/02/2018 HBA1C 6.1 09/29/2017 HBA1C Test sent to [facility]. 03/26/2017 CMP: Glucose 110 07/02/2018 BUN 13 07/02/2018 Creatinine 0.94 07/02/2018 Sodium 140 07/02/2018 Potassium 4.1 07/02/2018 Chloride 103 07/02/2018 CO2 25 07/02/2018 Protein, Total 7.3 07/02/2018 Albumin 4.3 07/02/2018 Calcium 9.7 07/02/2018 Alkaline Phosphatase 70 07/02/2018 Bilirubin, Total 0.7 07/02/2018 AST 20 07/02/2018 ALT 13 07/02/2018 Last Lipid Panel Lab Results Component Value Date CHOL 135 07/02/2018 Lab Results Component Value Date HDL 54 07/02/2018 Lab Results Component Value Date LDL 53 07/02/2018 Lab Results Component Value Date TG 141 07/02/2018 Albumin/Creat Ratio (mg/g) Date Value 07/02/2018 19 ASSESSMENT/PLAN: 1. Controlled type 2 diabetes mellitus without complication, without long-term current use of insulin (HCC) - ICD9: 250.00, ICD10: E11.9 (primary diagnosis) Controlled. Discussed appropriate treatment of hypoglycemia with rule of 15, eating hard candy, glucose tablets, or pop/fruit juice instead of a candy bar, explained th e delay on sugar absorption by the fat/protein content in candy bars. Patient expresses understanding - Continue current medications - Blood glucose monitoring on a once a day schedule 2. Venous stasis dermatitis of left lower extremity - ICD9: 454.1, ICD10: I87.2 Further evaluation and treatment as indicated. - TRIAMCINOLONE ACETONIDE 0.1 % TOPICAL CREAM 3. Rash of neck - ICD9: 782.1, ICD10: R21 Discussed management Further evaluation and treatment as indicated. - TRIAMCINOLONE ACETONIDE 0.1 % TOPICAL CREAM 4. Flexural atopic dermatitis - ICD9: 691.8, ICD10: L20.89 - Cont/resume topical steriod tx with see orders - BID use of recommended emollients such as Cetaphil, Eucerin Plus, Aveeno, Aquaphor - Follow up if symptoms persist or worsen. - TRIAMCINOLONE ACETONIDE 0.1 % TOPICAL CREAM 5. Essential hypertension - ICD9: 401.9, ICD10: I10 - good control - Continue current medication(s) - Recommended regular aerobic exercise. - Recommend home blood pressure monitoring, to bring results in on next visit - Discussed need and benefit for weight loss. - Goal of BP <130/80 6. Back strain, sequela - ICD9: 905.7, ICD10: S39.012S Does not need pain med often but helps to have on hand as noted in my notes. - HYDROCODONE 5 MG-ACETAMINOPHEN 325 MG TABLET 7. DDD (degenerative disc disease), lumbar - ICD9: 722.52, ICD10: M51.36 Chronic low back pain - Patient given instructions use of medications as ordered, intermittent rest and weight loss - HYDROCODONE 5 MG-ACETAMINOPHEN 325 MG TABLET Patient is scheduled to see PCP 11/04/18 [facility]. Patient to return to clinic for PharmD f/u 11/04/18 [facility]. Patient verbalized understanding of instructions. Dr. Reed and Cristal Vu PharmD The patient was seen, chart reviewed and I concur with the above evaluation and plan. Reviewed with [facility] group management of DM. MD Joon Mcgraw MD 07/22/2018 11:52 PM Signed Notes: Last 5 Encounter BP Readings: Date: BP: 07/08/2018 161/80 02/02/2018 166/82 09/29/2017 120/60 01/01/2017 130/84 09/25/2016 124/80 Last 5 Encounter Wt Readings: Date: Wt: 02/02/2018 96.6 kg (213 lb) 09/29/2017 91.6 kg (202 lb) 01/01/2017 99.8 kg (220 lb) 09/25/2016 100.7 kg (222 lb) 04/30/2016 100.2 kg (221 lb) Patient seen after DM [facility] to address a few issues one on one. 07/08/18 1015 07/08/18 1219 BP: 161/80 134/74 Pulse: (!) 56 Resp: 20 BP improved on recheck Raised pink and scaly/crusty lesion on left villagomez--about 2 cm diameter (been there a few months) Noted healed abrasion medial left ankle (had bled a lot initially). Has history of stasis dermatitis both legs, left usually worse than right. PDMP website checked and validated. All prescriptions have been APPROPRIATELY filled. No suspicious activity was identified. 07/08/2018 by Joon Reed MD 30 pills of hydrocodone can last up to 6 months if no bad flare ups. Usually no more than 2 in a day. Referring Provider: JOON REED [[id number]] Allergies As of Date: 07/08/2018 Noted Allergy Reaction AMOXICILLIN 07/14/2005 4 - Hives ASPIRIN 01/30/2009 Comments: Hives, shortness of breath SULFA (SULFONAMIDE ANTIBIOTICS) 07/14/2005 4 - Hives Date Reviewed: 07/08/2018 Reviewed by: Adilene Lynn LPN - Fully Assessed Reason for Visit: DM SMA [Other] Primary Visit Diagnosis:Controlled type 2 diabetes mellitus without complication, without long-term current use of insulin (HCC) [E11.9] Other Visit Diagnoses:Venous stasis dermatitis of left lower extremity [I87.2] Rash of neck [R21] Flexural atopic dermatitis [L20.89] Comment:arms; note that neck also with rash Essential hypertension [I10] Back strain, sequela [S39.012S] DDD (degenerative disc disease), lumbar [M51.36] Order(s):triamcinolone acetonide (KENALOG) 0.1 % creamApply 1 application to affected area three times daily as needed. For rash on extremitites and legDisp: 80 gRfl: 1 metFORMIN ER (GLUCOPHAGE XR) 500 mg 24 hr tabletTake 2 tablets by mouth twice daily with meals.Disp: 360 tabletRfl: 3 [] HYDROcodone-acetaminophen (NORCO) 5-325 mg per tabletTake 1-2 tablets by mouth every 8 hours as needed for up to 7 days.Disp: 30 tabletRfl: 0 Prescriptions as of 07/08/2018 Sig: TRIAMCINOLONE ACETONIDE 0.1 %* Apply 1 application to affect* METFORMIN ER 500 MG TABLET,EX* Take 2 tablets by mouth twice* CYCLOBENZAPRINE 10 MG TABLET Take 1 tablet by mouth twice * BUDESONIDE-FORMOTEROL HFA 160* Inhale 2 Puffs as instructed * FLECAINIDE 50 MG TABLET Take 50 mg by mouth q 12 HR. MAGNESIUM ORAL every day LISINOPRIL 5 MG TABLET TAKE 1 TABLET DAILY WARFARIN 5 MG TABLET Take 5 mg by mouth once daily. LOSARTAN 50 MG TABLET GLIMEPIRIDE 2 MG TABLET Take 1 tablet by mouth once d* ATORVASTATIN 10 MG TABLET Take 1 tablet by mouth once d* ALBUTEROL SULFATE HFA 90 MCG/* Inhale 2 Puffs as instructed * BLOOD SUGAR DIAGNOSTIC STRIPS Test glucose 1 x per day. Dx:* TENS UNIT AND ELECTRODES COMB* 1 Each once daily. TENS UNIT ELECTRODES 2 X 2 * Change pad every month as ind* HYDROCODONE 5 MG-ACETAMINOPHE* Take 1-2 tablets by mouth vanessa* Medication notes this encounter GLIMEPIRIDE 2 MG TABLET >> Joon Reed MD 07/08/2018 12:09 PM >> JOON REED MD [facility] Jul 08, 2018 12:09 PM rarely takes Problem List As Of Date 07/08/2018 Noted Resolved 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 Essential hypertension [I10] More... DERMATITIS NOS [L25.9] DIZZINESS AND GIDDINESS [R42] ASTHMA UNSPECIFIED [J45.909] More... CALCANEAL SPUR [M77.30] INVALID FOR* Back Strain, recurrent [S39.012A] More... Hyperlipemia [E78.5] INVALID FOR* Diabetes mellitus type 2, controlled, without c* More... Rotator cuff tear [M75.100] INVALID FOR* DDD (degenerative disc disease), lumbar [M51.36] More... Muscle spasm [M62.838] Prescriptions ordered this encounter Disp Refills Start End TRIAMCINOLONE ACETONIDE 0.1 % TOPICA* 80 g 1 07/08/2018 Route: TOPICAL Sig: Apply 1 application to affected area three times daily as needed. For rash on extremitites and leg METFORMIN ER 500 MG TABLET,EXTENDED * 360 * 3 07/08/2018 Route: ORAL Sig: Take 2 tablets by mouth twice daily with meals. HYDROCODONE 5 MG-ACETAMINOPHEN 325 M* 30 t* 0 07/08/2018 07/15/2018 Class: Print RX Cmt: Takes when has severe flare up of pain Route: ORAL Sig: Take 1-2 tablets by mouth every 8 hours as needed for up to 7 days. Medications Discontinued During This Encounter triamcinolone acetonide (KENALOG) 0.* 80 g 1 04/18/2017 07/08/2018 Route: TOPICAL Sig: Apply 1 application to affected area three times daily as needed. On left leg. Use this after severe flare up controlled with betamethasone Disc: Reason for discontinue is not on file. mometasone-formoterol (DULERA) 200-5* 1 In* 0 02/13/2018 07/08/2018 Cmt: Patient plans on using a voucher to cover cost of this med Route: INHALATION Sig: Inhale 2 Puffs as instructed twice daily. Disc: Reason for discontinue is not on file. metFORMIN ER (GLUCOPHAGE XR) 500 mg * 360 * 0 05/10/2018 07/08/2018 Sig: TAKE 2 TABLETS TWICE A DAY WITH MEALS Disc: Reason for discontinue is not on file. HYDROcodone-acetaminophen (NORCO) 5-* 30 t* 0 02/02/2018 07/08/2018 Class: Print RX Sig: Take one tablet by mouth twice a day as needed. Earliest Fill Date: 02/02/18 Disc: Reason for discontinue is not on file. Disposition: Return in about 4 months (around 11/07/2018) for 4 months follow up, DM [facility]. Follow-up and Disposition History Recorded Encounter Status:Closed by JOON REED MD on 07/22/18 ALBUMIN/CREAT RATIO Collected: 07/02/2018 Status: F Source: [place] 9:57 AM [facility] REPOSITORY TYPE CODE TESTS RESULT OUT OF REFERENCE UNITS RANGE LAB UCRR 20-300 mg/dL Creatinine,Ur 140.9 ine,Ran LAB UALBR 0.0-23.0 mg/L High Albumin Urine 26.1 Random LAB UALBCR 0-30 mg/g Albumin/Creat 19 Ratio Result Comment: 30 to 300 mg/g indicates an increased risk for diabetic nephropathy. Greater than 300 mg/g is consistent with clinical nephropathy. (Am J Kidney Disease 1994, 25:107) Performed By: #### UACR #### [facility] [address] [place], [place] [address] CBC Collected: 07/02/2018 Status: F Source: [place] 9:46 AM [facility] REPOSITORY TYPE CODE TESTS RESULT OUT OF REFERENCE UNITS RANGE LAB WBC 3.70-11.00 k/uL WBC 6.12 LAB RBC 3.90-5.20 m/uL RBC 4.34 LAB HGB 11.5-15.5 g/dL Hemoglobin 13.8 LAB HCT 36.0-46.0 % Hematocrit 42.3 LAB MCV 80.0-100.0 fL MCV 97.5 LAB MCH 26.0-34.0 pG MCH 31.8 LAB MCHC 30.5-36.0 g/dL MCHC 32.6 LAB RDWCV 11.5-15.0 % RDW-CV 12.7 LAB PLTCT 150-400 k/uL Low Platelet Count 140 LAB MPV 9.0-12.7 fL MPV 10.6 LAB ABSNUC <0.01 k/uL Absolute nRBC <0.01 Performed By: #### CBC, CMP, LIPB, HBA1C #### [facility] [address] [place], [place] [address] COMP METABOLIC PANEL Collected: 07/02/2018 Status: F Source: [place] 9:46 AM [facility] REPOSITORY TYPE CODE TESTS RESULT OUT OF REFERENCE UNITS RANGE LAB TP 6.3-8.0 g/dL Protein, Total 7.3 LAB ALB 3.9-4.9 g/dL Albumin 4.3 LAB CA 8.5-10.2 mg/dL Calcium, Total 9.7 LAB TBIL 0.2-1.3 mg/dL Bilirubin, Total 0.7 LAB ALKP 32-117 U/L Alkaline Phosphatase 70 LAB AST 13-35 U/L AST 20 LAB GLU 74-99 mg/dL Glucose High 110 Result Comment: The [place] [employer] (ADA) provides guidance for cutoff values for fasting glucose and random glucose. The ADA defines fasting as no caloric intake for at least 8 hours. Fas ting plasma glucose results between 100 to 125 mg/dL indicate increased risk for diabetes (prediabetes). Fasting plasma glucose results greater than or equal to 126 mg/dL meet the criteria for diagnosis of diabetes. In the absence of unequivocal hyperglycemia, results should be confirmed by repeat testing. In a patient with classic symptoms of hyperglycemia or hyperglycemic crisis, random plasma glucose results greater than or equal to 200 mg/dL meet the criteria for diagnosis of diabetes. Reference: Standards of Medical Care in Diabetes 2016, [place] [employer]. Diabetes Care. 2016.39(Suppl 1). LAB BUN 7-21 mg/dL BUN 13 LAB CRET 0.58-0.96 mg/dL Creatinine 0.94 LAB NA 136-144 mmol/L Sodium 140 LAB K 3.7-5.1 mmol/L Potassium 4.1 LAB CL 97-105 mmol/L Chloride 103 LAB CO2 22-30 mmol/L CO2 25 LAB AGAP 9-18 mmol/L Anion Gap 12 LAB ALT 7-38 U/L ALT 13 LAB GFRAA eGFR- Amer. >60 LAB GFRNAA . eGFR-All Other Races 59 Result Comment: eGFR (Estimated GFR) Units of measure: mL/min/1.73 meters squared eGFR is derived from the reexpressed MDRD Study equation using the following parameters: serum creatinine, age, gender and race. The creatinine assay has been calibrated to be traceable to IDMS. An eGFR <60 mL/min/1.73m2 for >3 months is consistent with chronic kidney disease. Refer to KDOQI guidelines for clinical interpretation. In patients with unstable renal function, e.g. those with acute kidney injury, the eGFR may not accurately reflect actual GFR. Performed By: #### CBC, CMP, LIPB, HBA1C #### [facility] [address] [place], [place] [address] LIPID PANEL, BASIC Collected: 07/02/2018 Status: F Source: [place] 9:46 AM [facility] REPOSITORY TYPE CODE TESTS RESULT OUT OF REFERENCE UNITS RANGE LAB CHOL <200 mg/dL Cholesterol 135 Result Comment: <200 mg/dL, Desirable 200-239 mg/dL, Borderline high >239 mg/dL, High LAB TRIGLY <150 mg/dL Triglyceride 141 Result Comment: <150 mg/dL, Normal 150-199 mg/dL, Borderline high 200-499 mg/dL, High >499 mg/dL, Very high LAB HDL >39 mg/dL HDL-Cholesterol 54 Result Comment: 40-59 mg/dL, Acceptable >59 mg/dL, High: Negative risk factor for coronary heart disease <40 mg/dL, Low: Positive risk factor for coronary heart disease LAB LDL <100 mg/dL LDL-Cholesterol 53 Result Comment: <100 mg/dL, Optimal 100-129 mg/dL, Near optimal/above optimal 130-159 mg/dL, Borderline high 160-189 mg/dL, High >189 mg/dL, Very high Secondary prevention optimal LDL Cholesterol levels are recommended to be < 70 mg/dL LAB NONHDL <130 mg/dL Non HDL Cholesterol 81 Result Comment: <130 mg/dL, Optimal 130-159 mg/dL, Near optimal/above optimal 160-189 mg/dL, Borderline high 190-219 mg/dL, High >219 mg/dL, Very high Secondary prevention optimal non HDL Cholesterol levels are recommended to be < 100 mg/dL LAB FT hrs Fasting Time 12 LAB VLDL <30 mg/dL VLDL Cholesterol 28 LAB TCHDL <5.10 TC:HDL Ratio 2.50 LAB LDLHDL <2.54 LDL:HDL Ratio 0.98 Result Comment: Reference: 1. National Cholesterol Education Program ATP III Guideline At-A-Glance Quick Desk Reference: National Heart, Lung, and Blood [place]. National Institutes of Health. 2001: NIH Publication No. 01-3305. 2. An International Atherosclerosis Society position paper: global recommendations for the management of dyslipidemia: executive summary, Atherosclerosis. 2014: 232(2):410-413. Performed By: #### CBC, CMP, LIPB, HBA1C #### [facility] [address] [place], [place] [address] HEMOGLOBIN A1C Collected: 07/02/2018 Status: F Source: [place] 9:46 AM [facility] REPOSITORY TYPE CODE TESTS RESULT OUT OF REFERENCE UNITS RANGE LAB HGBA1C 4.3-5.6 % High Hemoglobin A1c 5.7 LAB HBA0 mg/dL Est. Average Glucose 117 Result Comment: eAG: (Estimated average glucose) is a calculated value from HgbA1c and is canvas products sales representative of the average blood glucose level in the last 2-3 month period. Performed By: #### CBC, CMP, LIPB, HBA1C #### [facility] [address] [place], [place] [address] PROTHROMBIN TIME W/INR Collected: 06/21/2018 Status: F Source: [place] 9:59 AM [facility] REPOS[facility] TYPE CODE TESTS RESULT OUT OF RANGE REFERENCE UNITS LAB L300.4150 11.7-14.9 SECONDS High PROTIME 27.4 LAB L300.4200 Normal INR 2.5 Performed By: #### L300.3900 #### [facility] [address] [facility] [place], [place], [id number] PROTHROMBIN TIME W/INR Collected: 06/04/2018 Status: F Source: [place] 10:12 AM [facility] REPOS[facility]ORY TYPE CODE TESTS RESULT OUT OF RANGE REFERENCE UNITS LAB L300.4150 11.7-14.9 SECONDS High PROTIME 24.5 LAB L300.4200 Normal INR 2.2 Performed By: #### L300.3900 #### [facility] [address] [place], [address] PROTHROMBIN TIME W/INR Collected: 05/28/2018 Status: F Source: [place] 10:33 AM [facility] REPOS[facility]ORY TYPE CODE TESTS RESULT OUT OF RANGE REFERENCE UNITS LAB L300.4150 11.7-14.9 SECONDS High PROTIME 21.8 LAB L300.4200 Normal INR 1.9 Performed By: #### L300.3900 #### [facility] [address] [place], [address] PROTHROMBIN TIME W/INR Collected: 04/30/2018 Status: F Source: [place] 4:04 PM [facility] REPOS[facility]ORY TYPE CODE TESTS RESULT OUT OF RANGE REFERENCE UNITS LAB L300.4150 11.7-14.9 SECONDS High PROTIME 24.8 LAB L300.4200 Normal INR 2.2 Performed By: #### L300.3900 #### [facility] [address] [place], [address] OFFICE VISIT REPORT Observed: 04/17/2018 Status: F Source: [place] 2:22 PM [facility] REPOSITORY [facility] [address] [place] [address]. [place] [address] OFFICE VISIT Date of Service: 03/09/18 MR#: [id number] Acct: [id number] Patient: KEISHA RED Rep #: [id number] : 1945 Provider: Grant Ko MD Age/Sex: 73/F Location: [place] Status: Signed Intake Intake Visit Reasons: Atrial fibrillation Chief Complaint: shortness of breath Allergies amoxicillin Allergy (Severe, Verified 02/15/18 10:02) Hives aspirin Allergy (Severe, Verified 02/15/18 10:02) Hives, SOB Sulfa (Sulfonamide Antibiotics) Allergy (Severe, Verified 02/15/18 10:02) Hives Medications Atorvastatin Calcium [Lipitor] 10 mg PO QHS #30 tab 12/25/16 [Rx Confirmed 03/16/18] Hydrocodone Bitart/Apap 5-325 [Vernon 5/325] 1 - 2 tab PO Q6H PRN PRN #12 tab 08/14/17 [Rx Confirmed 03/16/18] magnesium oxide 400 mg capsule 400 mg PO QDAY cap 11/18/17 [History Confirmed 03/16/18] flecainide 50 mg tablet 50 mg PO Q12H #60 tab 12/22/17 [Rx Confirmed 03/17/18] glimepiride 2 mg tablet 2 mg PO QAM 02/13/18 [History Confirmed 03/16/18] losartan 50 mg tablet 50 mg PO QDAY 02/13/18 [History Confirmed 03/16/18] metformin 500 mg tablet 500 mg PO BID tab 02/13/18 [History Confirmed 03/16/18] warfarin 5 mg tablet 5 mg PO .COMPLEX 02/15/18 [History Confirmed 04/09/18] albuterol sulfate HFA 90 mcg/actuation aerosol inhaler 2 puff INHALATION Q6H PRN #1 device 02/25/18 [Rx Confirmed 03/16/18] Assessment AND Plan 1. Atrial fibrillation I48.91 Orders Orders: Plan Detail Other Orders Orders: Nursing Note Patient in for EKG and cardioversion teaching 04/17/18 1422 <Electronically signed by Grant Ko MD> Date Grant Ko MD [facility] Signature: Date (if applicable) CC: OFFICE VISIT REPORT Observed: 04/17/2018 Status: F Source: [place] 2:15 PM [place] [address] [place] [address] OFFICE VISIT Date of Service: 03/23/18 MR#: [id number] Acct: [id number] Patient: KEISHA RED Rep #: [id number] : 1945 Provider: Grant Ko MD Age/Sex: 73/F Location: [place] Status: Signed Intake Intake Visit Reasons: s/p DCCV Chief Complaint: shortness of breath Allergies amoxicillin Allergy (Severe, Verified 02/15/18 10:02) Hives aspirin Allergy (Severe, Verified 02/15/18 10:02) Hives, SOB Sulfa (Sulfonamide Antibiotics) Allergy (Severe, Verified 02/15/18 10:02) Hives Medications Atorvastatin Calcium [Lipitor] 10 mg PO QHS #30 tab 12/25/16 [Rx Confirmed 03/16/18] Hydrocodone Bitart/Apap 5-325 [Vernon 5/325] 1 - 2 tab PO Q6H PRN PRN #12 tab 08/14/17 [Rx Confirmed 03/16/18] magnesium oxide 400 mg capsule 400 mg PO QDAY cap 11/18/17 [History Confirmed 03/16/18] flecainide 50 mg tablet 50 mg PO Q12H #60 tab 12/22/17 [Rx Confirmed 03/17/18] glimepiride 2 mg tablet 2 mg PO QAM 02/13/18 [History Confirmed 03/16/18] losartan 50 mg tablet 50 mg PO QDAY 02/13/18 [History Confirmed 03/16/18] metformin 500 mg tablet 500 mg PO BID tab 02/13/18 [History Confirmed 03/16/18] warfarin 5 mg tablet 5 mg PO .COMPLEX 02/15/18 [History Confirmed 04/09/18] albuterol sulfate HFA 90 mcg/actuation aerosol inhaler 2 puff INHALATION Q6H PRN #1 device 02/25/18 [Rx Confirmed 03/16/18] Assessment AND Plan Orders Orders: Nursing Note Patient here today for an EKG and blood pressure check. She is one week s/p cardioversion. Patient states she feels great. Blood pressure today was 144/70. EKG was done and Dr. Ko notified of results. Per Dr. Ko EKG looks fine and she is to stay on current meds and keep scheduled appt. Patient notified and verbalized understanding. 04/17/18 1415 <Electronically signed by Grant Ko MD> Date Grant Ko MD Cosign Signature: Date (if applicable) CC: PROTHROMBIN TIME W/INR Collected: 04/09/2018 Status: F Source: [place] 10:27 AM [facility] REPOS[facility] TYPE CODE TESTS RESULT OUT OF RANGE REFERENCE UNITS LAB L300.4150 11.7-14.9 SECONDS High PROTIME 26.0 LAB L300.4200 Normal INR 2.4 Performed By: #### L300.3900 #### [facility] [address] [place], [address] 12 LEAD EKG PERFORMED Observed: 03/23/2018 Status: F Source: [place] [facility] 11:14 AM [facility] RE[facility]ITORY [facility] [address] [place] [address] 12 Lead EKG performed by [facility] 03/23/181112 MR#: [id number] Acct: [id number] Name: KEISHA RED Rep #: [id number] : 1945 73 From: Grant Ko MD Attending Dr: Grant Ko MD Status: DEP AMB Ordering Dr: Grant Ko MD Date: 03/23/18 Location: [place] Sex: F C Admitted: B[facility]/12 Lead EKG performed by [facility] ECG Report Interpretation Sinus Rhythm with extreme first degree AVB-Old anterior infarct. Low voltage -possible pulmonary disease. ABNORMAL Electronically signed on 10/08/2018 at 15:31 by Grant Ko 10/08/18 1536 Date Grant Ko MD CC: Joon Reed MD Date Dictated: 03/23/18 1113 Date Transcribed: 03/23/181112 Bond Underwriter: Signed PROTHROMBIN TIME W/INR Collected: 03/23/2018 Status: F Source: [place] 10:05 AM [facility] REPOS[facility]ORY TYPE CODE TESTS RESULT OUT OF RANGE REFERENCE UNITS LAB L300.4150 11.7-14.9 SECONDS High PROTIME 34.6 LAB L300.4200 Normal INR 3.4 Performed By: #### L300.3900 #### [facility] [address] [place], [address] OPERATIVE REPORT Observed: 03/17/2018 Status: F Source: [place] 12:42 PM [facility] RE[facility]ITORY [facility] Medical Records Department [address] [place] [address] Operative Report 03/17/18 1240 MR#: [id number] Acct: [id number] Name: KEISHA RED Rep #: [id number] : 1945 73 From: Grant Ko MD PCP: Joon Reed MD Status: REG [facility] Location: [facility] Problem List (1) Atrial fibrillation Status: Chronic (2) Atrial flutter Status: Chronic (3) RAMESH (obstructive sleep apnea) Status: Chronic (4) Pulmonary hypertension Status: Chronic Operative Report Date of Procedure: 03/17/18 DC cardioversion summary: The patient was brought to the [employer] holding area in the fasting state. The risks/benefits of the procedure were thoroughly explained the patient and informed consent was obtained. INR this morning was 3.8 and has been above 3.0 over the last several weeks. The defibrillator pads were placed in the AP position. With the assistance of Dr. Tone Alberto patient was given 40 mill grams of IV propofol. Once adequate sedation was obtained, patient received a single 200 J biphasic synchronized shock which converted from atrial flutter with controlled ventricular response to normal sinus rhythm/sinus bradycardia with first-degree AV block. This patient spontaneously awoke, moves all 4 extremities and tolerated the procedure well. Her rhythm maintained at sinus rhythm with first-degree AV block. Conclusions: Successful flecainide assisted DC cardioversion from atrial flutter to sinus bradycardia with first-degree AV block receiving a single 200 J biphasic synchronized shock. No complications. Recommend the patient continue on her Coumadin, flecainide, and heart rate controlling medications. She will return in 2 weeks time for a blood pressure check an EKG in our office. Patient tolerated procedure well. No complications. 03/17/18 1242 <Electronically signed by Grant Ko MD> Date Grant Ko MD CC: Grant Ko MD; Joon Reed MD Signed OPERATIVE REPORT Observed: 03/17/2018 Status: F Source: [place] 12:40 PM [facility] RE[facility]ORY [facility] Medical Records Department [address] [place] [address] Operative Report 03/17/18 1235 MR#: [id number] Acct: [id number] Name: KEISHA RED Rep #: [id number] : 1945 73 From: Tone Alberto DO PCP: Joon Reed MD Status: REG [facility] Location: [facility] Operative Report Date of Procedure: 03/17/18 CONSCIOUS SEDATION REPORT DATE OF SERVICE: March 17, 2018 BRIEF HISTORY OF PRESENT ILLNESS: The patient is a 73-year-old female who presented to [facility] for an elective outpatient cardioversion due to underlying atrial fibrillation. The patient does have a history of mild intermittent asthma along with obstructive sleep apnea, for which she is currently noncompliant with the use of nocturnal Pap therapy. The patient did undergo previous cardioversion in January 2017, during which time she received propofol for sedation. The patient denies any recent constitutional symptoms such as fevers, chills, nausea or vomiting. She denies previous anesthetic complications. PHYSICAL EXAMINATION: VITAL SIGNS: Reviewed and were acceptable. GENERAL: The patient is an obese female, in no apparent distress, speaking in full sentences. HEENT: Normocephalic, atraumatic. Mucous membranes are moist and pink. Good mouth opening noted. Trachea is midline. Good neck mobility. MP IV CHEST: S1, S2 irregularly irregular. No murmurs, rubs or gallops were noted. LUNGS: Clear to auscultation bilaterally without appreciable wheezes, rales or rhonchi. ABDOMEN: Soft, nontender, nondistended. Positive bowel sounds. EXTREMITIES: There is no clubbing, cyanosis or edema. ASA Class: II DESCRIPTION OF PROCEDURE: After confirmation of informed consent, the patient's anesthesia plan was reviewed in detail. Propofol was chosen. Risks and benefits were reviewed and the patient agreed to proceed. At 1152, the patient was given 40 mg of propofol. The patient achieved an appropriate level of sedation and was given a 200 joule synchronized cardioversion by Dr. Ko at the bedside. This was successful in achieving normal sinus rhythm. The patient was monitored until 1201, at which time she reached her baseline mental status and function. The patient tolerated the procedure well. COMPLICATIONS: None ESTIMATED BLOOD LOSS: None RECOMMENDATIONS: Okay to recover in usual fashion. Code Visit 9xxxx: Other Procedure See Report - [id number] 03/17/18 1240 <Electronically signed by Tone Alberto DO> Date Tone Alberto DO CC: Grant Ko MD; Tone Alberto D.O.; Joon Reed MD Signed PROTIME W/INR Collected: 03/17/2018 Status: F Source: [place] 10:57 AM [facility] REPOS[facility] TYPE CODE TESTS RESULT OUT OF REFERENCE UNITS RANGE LAB L9200.1001 11.9-14.4 SEC High PROTIME ISTAT 42.5 Result Comment: Reference Range 11.9 - 14.4 LAB L9200.2000 High alert INR ISTAT 3.80 Result Comment: Critical Value > 3.5 Performed By: #### L9200.0000 #### [facility] Point of Care [address] [place], [place] [address] PROTHROMBIN TIME W/INR Collected: 03/15/2018 Status: F Source: [place] 10:10 AM [facility] REPOSITORY TYPE CODE TESTS RESULT OUT OF RANGE REFERENCE UNITS LAB L300.4150 11.7-14.9 SECONDS High PROTIME 29.4 LAB L300.4200 Normal INR 2.8 Performed By: #### L300.3900 #### [facility] [address] [place], [address] BASIC METABOLIC Collected: 03/09/2018 Status: F Source: [place] PROFILE (BMP) 9:55 AM [facility] REPOSITORY TYPE CODE TESTS RESULT OUT OF RANGE REFERENCE UNITS LAB L501.0100 74-106 mg/dL Normal GLU 96 Result Comment: Please note revised GLUCOSE reference range effective 2017. LAB L501.1000 7-18 mg/dL Normal BUN 11 LAB L501.1100 0.55-1.02 mg/dL Normal CREAT,SERUM 0.81 Result Comment: The validity of the calculated GFR AND GFRAA in patients over 70 years has not been determined. Clinical correlation is essential. LAB L501.1110 >60 mL/min Normal EST GFR 75 Result Comment: Non- GFR Calc LAB L501.1115 >60 mL/min Normal EST GFR - AA 90 Result Comment: GFR Calc LAB L501.1300 10-20 RATIO Normal BUN/CRE 13.6 LAB L501.2200 8.5-10.1 mg/dL CA Normal 9.1 LAB L501.5300 136-145 mmol/L NA Normal 141 LAB L501.5600 3.5-5.1 mmol/L K Normal 3.8 LAB L501.5900 98-107 mmol/L High CL 108 LAB L501.6100 21.0-32.0 mmol/L Normal CO2 26.0 LAB L501.6200 5-15 Normal GAP 7 Performed By: #### L500.2500 #### [facility] [address] [facility] [place], [address] 12 LEAD EKG PERFORMED Observed: 03/09/2018 Status: F Source: [place] BY [facility] 9:28 AM [facility] RE[facility]ITORY [place] [address] [place] [address] 12 Lead EKG performed by [facility] 03/09/18 0927 MR#: [id number] Acct: [id number] Name: KEISHA RED Rep #: [id number] : 1945 73 From: Grant Ko MD Attending Dr: Grant Ko MD Status: DEP [facility] Ordering Dr: Grant Ko MD Date: 03/09/18 Location: [place] Sex: F C Admitted: [facility]/12 Lead EKG performed by [facility] ECG Report Interpretation 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 -Inferior ST-elevation -repolarization variant. Low voltage -possible pulmonary disease. ABNORMAL Electronically signed on 10/08/2018 at 15:31 by Grant Ko 10/08/18 1536 Date Grant Ko MD CC: Joon Reed MD Date Dictated: 03/09/18926 Date Transcribed: 03/09/18926 Bond Underwriter: Signed PROTHROMBIN TIME W/INR Collected: 03/08/2018 Status: F Source: [place] 10:28 AM [facility] REPOSITORY TYPE CODE TESTS RESULT OUT OF RANGE REFERENCE UNITS LAB L300.4150 11.7-14.9 SECONDS High PROTIME 28.1 LAB L300.4200 Normal INR 2.6 Performed By: #### L300.3900 #### [facility] [address] [place], [address] PROTHROMBIN TIME W/INR Collected: 03/01/2018 Status: F Source: [place] 9:59 AM [facility] REPOSITORY TYPE CODE TESTS RESULT OUT OF RANGE REFERENCE UNITS LAB L300.4150 11.7-14.9 SECONDS High PROTIME 22.9 LAB L300.4200 Normal INR 2.0 Performed By: #### L300.3900 #### [facility] [address] [facility] [place], [address] ECHOCARDIOGRAM COMPLETE Observed: 2018 Status: F Source: [place] 12:24 PM [facility] REPOSITORY [facility] Cardiovascular Services [address] [place] [address] Echo Complete 02/24/18 1012 MR#: [id number] Acct: [id number] Name: KEISHA RED Rep #: [id number] : 1945 72 From: Grant Ko MD Attending Dr: Grant Ko MD Status: REG CLI Ordering Dr: Grant Ko MD Date: 02/24/18 Location: [facility] Sex: F C Admitted: Version 2 Reason For Study: PHTN Procedure This was a 2D Doppler, Color Flow transthoracic echocardiogram. Exam performed in department. Left Ventricle Normal size and thickness. The estimated ejection fraction is 65 %. Unable to assess diastolic dysfunction. No regional wall motion abnormalities noted. Right Ventricle Normal size and thickness. Normal systolic function. Atria The left atrium is severely enlarged. The right atrium is severely enlarged. Normal atrial septum. Mitral Valve The mitral valve is structurally normal. No prolapse or stenosis seen. Trivial mitral valve insufficiency. Tricuspid Valve Normal tricuspid valve. Mild (1+) tricuspid valve insufficiency. Right ventricular systolic pressure estimated to be 48 mmHg. Moderate pulmonary hypertension. Aortic Valve Normal aortic valve. Trisinus/trileaflet aortic valve. Pulmonic Valve Normal pulmonic valve. Mild (1+) pulmonic valve insufficiency. Great Vessels Normal aortic root. Normal arch. Normal inferior vena cava. Inferior vena cava collapse with sniff. Pericardium/Pleural No pericardial effusion. MMode/2D Measurements AND Calculations LVIDd: 5.2 cm IVSd: 0.94 cm Ao root diam: 3.2 cm LVIDs: 3.4 cm LVPWd: 0.96 cm LA dimension: 3.6 cm RVDd: 3.0 cm FS: 34.2 % LAV(MOD-bp): 76.3 ml LA A4 area: 23.6 cm2 RA A4 area: 24.3 cm2 LAV(MOD-bp) Indexed: 36.3 ml/m2 LAV(MOD-sp2): 70.8 ml LAV(MOD-sp4): 70.0 ml Doppler Measurements AND Calculations MV E max pamela: 161.2 cm/sec Ao V2 max: 160.0 cm/sec LV V1 max: 148.3 cm/sec Ao max P.2 mmHg LV V1 max P.8 mmHg PA V2 max: 146.6 cm/sec TR max pamela: 265.4 cm/sec TR max P.4 mmHg Interpretation Summary The estimated ejection fraction is 65 %. Unable to assess diastolic dysfunction. The left atrium is severely enlarged. The right atrium is severely enlarged. Trivial mitral valve insufficiency. Mild (1+) tricuspid valve insufficiency. Right ventricular systolic pressure estimated to be 48 mmHg. Moderate pulmonary hypertension. Pt appears to be in atrial fibrillation. Compared to echo report dated 10/13/2017, LV function has remained the same, RVSP has increased from 38 to 48 mm Hg. Pt now appears to be in atrial fibrillation. Ordering Physician: Grant Ko Referring Physician: Joon Menon Performed By: Gayla Steele RDCS, RVT 02/25/18 1223 Date Grant Ko MD CC: rGant Ko MD; Joon Reed MD Date Dictated: 02/24/18 1012 Date Transcribed: 02/25/18 1221 Bond Underwriter: Signed PULMONARY VISIT REPORT Observed: 2018 Status: F Source: [place] 9:40 AM [facility] REPOSIT[facility] [place] [address] [place] [address] OFFICE VISIT Date of Service: 02/25/18 MR#: [id number] Acct: [id number] Name: KEISHA RED Rep #: [id number] : 1945 Provider: Tone Alberto D.O. Age/Sex: 72/F Location: [facility] Status: Signed Assessment AND Plan 1. Mild intermittent asthma without complication J45.20 Plan The patient's prior pulmonary function testing revealed the presence of a mild restrictive ventilatory defect with a disproportionate reduction in diffusing capacity. She did have evidence of pulmonary hypertension on echocardiogram. However, she previously presented with symptoms concerning for underlying asthma. She was initially maintained on Symbicort and as needed albuterol. However, the patient is no longer utilizing Symbicort twice daily. Her rescue inhaler use is infrequent. Therefore, I have recommended that she discontinue Symbicort completely. She can continue to utilize albuterol on an as- needed basis. 2. RAMESH (obstructive sleep apnea) G47.33 Plan The patient has a known history of obstructive sleep apnea for which she was previously started on nocturnal Pap therapy. However, the patient became noncompliant with its use and refused therapy. Her machine was subsequently repossessed by her DME provider. 3. Obesity E66.9 Plan Weight loss through dietary modification and a graded exercise regimen is strongly encouraged. Plan Detail Other Medications New: albuterol sulfate HFA 90 mcg/actuation (ProAi2 puffs Inhalation Q6H PRN shortness of cristian r HFA) th or wheezing Discontinued: budesonide-formoterol 160-4.5 mcg/actuation (Symbicort) adminis2 puffs Inhalation BID ter with spacer, rinse mouth after each use Discontinued Reason : Order Changed Follow Up 6 Months (DMB) HPI HPI Comments Details: The patient is a 72-year-old female who presents to the clinic today for a routine scheduled follow-up office visit due to underlying asthma and obstructive sleep apnea. If you recall, I initially saw the patient in December 2016 when she was admitted to the hospital with a presumed asthma exacerbation. She reported having previously been diagnosed with asthma in the . A 6 minute walk test completed in December showed no evidence of exertional hypoxemia. The patient has known obstructive sleep apnea for which it was recommended that she be placed on bilevel with a pressure setting of 21/15 cm of water with humidification. Her last titration polysomnogram occurred in December 2016. Surface echocardiogram revealed mild concentric LVH with an ejection fraction of 75%. Her right ventricular systolic pressure was noted to be 47 mmHg. Pulmonary function testing completed in February 2017 demonstrated the presence of a mild restrictive ventilatory defect with a disproportionate reduction in diffusing capacity. A repeat surface echocardiogram was just completed in September 2017 and revealed normal LV size and function with an ejection fraction of 70%. The RV was noted to be normal in size and function. The right atrium was moderately enlarged. Right ventricular systolic pressure was estimated to be 38 mmHg. Although the patient has a known history of RAMESH, for which she was previously prescribed BiPAP, she discontinued the use of her PAP therapy. Her dakick subsequently repossessed her machine. Today, the patient reports overall stability in her breathing quality. She only experiences a mild degree of shortness of breath with physical exertion. She reports the presence of a mild morning cough, which resolves on its own. She denies the presence of chest tightness or wheezing. Her weight has remained stable. She is currently only utilizing her Symbicort once daily. She relies on her rescue inhaler 2 times per week. She has not been seen in the emergency department or urgent care for breathing related issues since our last office visit. She denies the presence of seasonal allergic rhinitis. The patient was recently admitted to the hospital in [facility] due to the presence of a mechanical fall with subsequent workup revealing TIA and intracranial bleed. She denies fevers, chills or night sweats. She reports no chest pain, dizziness or lightheadedness. Intake Vital Signs02/25/18 Height 5 ft 8 in 02/25/18 Weight: 212 lb 02/25/18 Body Mass Index (BMI) 32.2 02/25/18 Blood Pressure 178/76 Intake Visit Reasons: 3 M FU Chief Complaint: shortness of breath Accompanied by: Self Allergies amoxicillin Allergy (Severe, Verified 02/15/18 10:02) Hives aspirin Allergy (Severe, Verified 02/15/18 10:02) Hives, SOB Sulfa (Sulfonamide Antibiotics) Allergy (Severe, Verified 02/15/18 10:02) Hives Medications Atorvastatin Calcium [Lipitor] 10 mg PO QHS #30 tab 12/25/16 [Rx Confirmed 02/15/18] Hydrocodone Bitart/Apap 5-325 [Vernon 5/325] 1 - 2 tab PO Q6H PRN PRN #12 tab 08/14/17 [Rx Confirmed 02/15/18] magnesium oxide 400 mg capsule 400 mg PO QDAY cap 11/18/17 [History Confirmed 02/15/18] flecainide 50 mg tablet 50 mg PO Q12H #60 tab 12/22/17 [Rx Confirmed 02/15/18] glimepiride 2 mg tablet 2 mg PO QAM 02/13/18 [History Confirmed 02/15/18] losartan 50 mg tablet 50 mg PO QDAY 02/13/18 [History Confirmed 02/15/18] metformin 500 mg tablet 500 mg PO BID tab 02/13/18 [History Confirmed 02/15/18] warfarin 5 mg tablet 5 mg PO .COMPLEX 02/15/18 [History Confirmed 02/22/18] albuterol sulfate HFA 90 mcg/actuation aerosol inhaler 2 puff INHALATION Q6H PRN #1 device 02/25/18 [Rx Confirmed 02/25/18] PFSH Medical History Hyperlipidemia (Chronic) 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) Obesity (Chronic) Diabetes mellitus (Chronic) Other secondary pulmonary hypertension (Chronic) RAMESH (obstructive sleep apnea) (Chronic) Asthma (Chronic) Viral URI with cough (Acute) reject opener (current) use of anticoagulants (Chronic) Atrial fibrillation (Chronic) Cystitis (Acute) Allergic rhinitis (Chronic) BMI 33.0-33.9,adult (Chronic) Contact dermatitis and other eczema (Chronic) DDD (degenerative disc disease) (Chronic) Dizziness and giddiness (Chronic) Hx of bladder infections (Chronic) Hypersomnia (Chronic) RAMESH (obstructive sleep apnea) (Chronic) Palpitations (Chronic) Shoulder dislocation (Chronic) Surgical History History of kidney surgery (Chronic) History of appendectomy (Chronic) Family History Mother Diabetes Father CAD (coronary artery disease) Sister Lung cancer Son Kidney stone Social History Smoking Status: Never smoker alcohol intake: never substance use type: does not use Review of Systems Const CONSTITUTIONAL: Negative anorexia, body ache, chills, daytime sleepiness, fever(s), night sweats, oral thrush, stops breathing during sleep, weight loss, sleeping in chair, fatigue, weight loss, weight gain, frequent colds, seasonal allergies, other, headache(s) or orthopnea EETM Ear Nose Throat Mouth: Positive hearing normal; negative hard of hearing, hoarseness, dry mouth in morning, change in vision, itchy eyes, eye pain, swallowing Difficulty, ear pain, nose bleed, headache(s), mouth pain, nasal congestion, nasal discharge, post nasal drip, sinus pain, sinus pressure, sore throat or other Cardio Cardiovascular: Negative chest pain, chest pain at rest, chest pain with activity, irregular heart rhythm, edema, shortness of breath when lying down, palpitations, murmur or other Resp Respiratory: Positive as per HPI, shortness of breath shortness of breath: Positive with activity and cough cough: Positive non-productive; negative pain with cough, wheezing, chest congestion, chest tightness, pain on inspiration, inhalers, increase use of rescue inhalers, snoring, apnea or other Gastro Gastrointestional: Negative bloody stools, change in appetite, difficulty swallowing, reflux, hematemesis, melena stool, loose stool, constipation or other Genitourinary: Negative blood in urine, nocturia, pain with urination or other Musc Musculoskeletal: Negative body pain, back pain, neck pain or other Skin/Breast Skin/Breast: Negative dry skin, itching, rash, unusual bruising, breast lump or other Neuro Neurological: Negative restless legs, confusion, weakness or other Psych Psychocological: Negative abnormal sleep pattern, anxiety, thoughts of hurting self/others, hopelessness or other Lymph Lymphatic: Negative easy bleeding, easy bruising, swollen lymph nodes or other Exam Const Constitutional: Positive conversant, cooperative, in no acute respiratory distress, well developed, well nourished and good hygiene Head Head: Positive normocephalic and atraumatic; negative cyanosis of lips/distal nose Eyes Eye: Positive clear conjunctiva; negative nystagmus or scleral abnormality Ears Ear: Positive hearing normal and external ears normal; negative hard of hearing Nose Nose: Positive external nose normal; negative epistaxis Mouth Mouth: Positive oral mucosae normal and posterior oropharynx is adequate; negative no lesions or post nasal drip Mallampati Score: II: Mallampati Score Neck Neck: Positive normal visual inspection and trachea midline; negative lymphadenopathy Chest Wall Chest: Positive symmetric chest movement Normal AP diameter. Resp lung sounds: Positive clear to auscultation and good air exchange; negative wheezes, rhonchi or rales Cardio Cardiac: Positive regular rate, regular rhythm, S1 normal and S2 normal; negative rub, gallop or murmur GI GI: Positive normal bowel sounds Soft without distention Genitourinary: Positive deferred Musc Musculoskeletal: Positive steady gait Skin Pulmonary Skin Exam: Positive intact; negative lesion, ulcers, dermal atrophy or rash Pulses Pulse: Yes Pedal pulses present: Extremities Extremities: No clubbing, No cyanosis, No edema Neuro Neurologic: Yes conversant, Yes no focal neuro deficits, Yes cooperative Lymph Lymphatic: No lymphadenopathy Psych Appearance: Positive grossly normal Mental Status: Positive mental status grossly normal Mood: Positive congruent mood Affect: Positive normal affect Coding Level of Care Code Off vis,est,level 3 Diagnoses Mild intermittent asthma without complication J45.20 Asthma complication type: uncomplicated Asthma persistence: intermittent Asthma severity: mild RAMESH (obstructive sleep apnea) G47.33 Obesity E66.9 02/25/18 0940 <Electronically signed by Tone Alberto DO> Date Tone Alberto DO Cosigner Signature: Date (if applicable) CC: Joon Reed MD PROTHROMBIN TIME W/INR Collected: 02/22/2018 Status: F Source: [place] 9:08 AM [facility] TYPE CODE TESTS RESULT OUT OF RANGE REFERENCE UNITS LAB L300.4150 11.7-14.9 SECONDS High PROTIME 33.7 LAB L300.4200 Normal INR 3.3 Performed By: #### L300.3900 #### [facility] [address] [place], [address] CARDIOLOGY VISIT Observed: 02/15/2018 Status: F Source: [place] REPORT 10:22 AM [facility] [address] [place] [address] OFFICE VISIT Date of Service: 02/15/18 MR#: [id number] Acct: [id number] Name: KEISHA RED Rep #: [id number] : 1945 Provider: Grant Ko MD Age/Sex: 72/F Location: [facility] Status: Signed HPI HPI Chief Complaint: Routine f/u Details: referring physician: Dr. Reed Mrs. Red is a very pleasant 72-year-old morbidly obese diabetic female, lifelong nonsmoker, with a history of hypertension, hypercholesterolemia, with no previous known cardiac history who was originally admitted on 12/24/16 with significant hypertension after running out of her medications as well as her Symbicort inhaler. Patient developed progressively worsening dyspnea and exertion and was found to be in atrial fibrillation with controlled ventricular response. Patient underwent 2-D echo with Doppler which demonstrated an EF of 75%, increased pulmonary pressures from 2011 from 29 mm to 47 mmHg, and atrial fibrillation. She was ruled out for myocardial infarction underwent a non-walking nuclear stress test which was negative for inducible ischemia. Her most recent EKG which showed sinus rhythm was in 2014. Since admission and discharge with medical management she is feeling much much better, and denies any chest pain, angina, shortness of breath or dyspnea on exertion. She is taking and tolerating her medicines well. she underwent successful DC cardioversion in 01/28/17 and is remained in sinus rhythm ever since. She denies any palpitations or symptoms of atrial fibrillation. Last visit, the patient was doing well up until around 02/04/18 when she was traveling to [place] with her daughters. She was visiting [place], and unfortunately tripped over her black dog in the dark, hitting her head. She sought medical attention at [facility] and her INR was found to be 1.0. CT the head did not show any acute pathology. Her Coumadin was held, MRI of the brain was negative, carotid Dopplers were negative. She is recently restarted on Coumadin. Since her fall she is doing quite well and has had no presyncope, syncope, lightheadedness or dizziness. It is felt the patient most likely had a concussion at the time of her fall. Her EKG while visiting the [facility] dated 02/04/18 showed atrial flutter with fixed controlled ventricular response, no acute changes. Reportedly had an echocardiogram at that hospital however I do not have those results. In our office today her blood pressure is 140/60, and pulse of 48 and regular. Her physical exam demonstrates severe obesity, clear lungs bilaterally, no wheezing, Regular rate and rhythm and normal S1/S2. She has no edema. Lipids as of 12/24/16 showed HDL of 57 and an LDL of 109. lipids as of 01/16/17 shown LDL of 55 and an HDL of 60. Her lipids as of 01/15/18 show an HDL of 66 and an LDL of 54. EKG today demonstrates atrial flutter with controlled ventricular response with a heart rate of 43 bpm Intake Vital Signs02/15/18 Height 5 ft 8 in 02/15/18 Weight: 205 lb 02/15/18 Body Mass Index (BMI) 31.1 02/15/18 Blood Pressure 140/60 Intake Visit Reasons: 6 M FU Allergies amoxicillin Allergy (Severe, Verified 02/15/18 10:02) Hives aspirin Allergy (Severe, Verified 02/15/18 10:02) Hives, SOB Sulfa (Sulfonamide Antibiotics) Allergy (Severe, Verified 02/15/18 10:02) Hives Medications Atorvastatin Calcium [Lipitor] 10 mg PO QHS #30 tab 12/25/16 [Rx Confirmed 02/15/18] Hydrocodone Bitart/Apap 5-325 [Vernon 5/325] 1 - 2 tab PO Q6H PRN PRN #12 tab 08/14/17 [Rx Confirmed 02/15/18] budesonide-formoterol HFA 160 mcg-4.5 mcg/actuation aerosol inhaler 2 puff INHALATION BID #1 ea 11/12/17 [Rx Confirmed 02/15/18] magnesium oxide 400 mg capsule 400 mg PO QDAY cap 11/18/17 [History Confirmed 02/15/18] flecainide 50 mg tablet 50 mg PO Q12H #60 tab 12/22/17 [Rx Confirmed 02/15/18] warfarin 5 mg tablet 5 mg PO .COMPLEX 02/10/18 [History Confirmed 02/15/18] albuterol sulfate HFA 90 mcg/actuation aerosol inhaler 2 puff INHALATION Q6H PRN g 02/13/18 [History Confirmed 02/15/18] glimepiride 2 mg tablet 2 mg PO QAM 02/13/18 [History Confirmed 02/15/18] losartan 50 mg tablet 50 mg PO QDAY 02/13/18 [History Confirmed 02/15/18] metformin 500 mg tablet 500 mg PO BID tab 02/13/18 [History Confirmed 02/15/18] Ejection fraction %: 65 to 70 [facility] Medical History Hyperlipidemia (Chronic) 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) Obesity (Chronic) Diabetes mellitus (Chronic) Other secondary pulmonary hypertension (Chronic) RAMESH (obstructive sleep apnea) (Chronic) Asthma (Chronic) Viral URI with cough (Acute) reject opener (current) use of anticoagulants (Chronic) Atrial fibrillation (Chronic) Cystitis (Acute) Allergic rhinitis (Chronic) BMI 33.0-33.9,adult (Chronic) Contact dermatitis and other eczema (Chronic) DDD (degenerative disc disease) (Chronic) Dizziness and giddiness (Chronic) Hx of bladder infections (Chronic) Hypersomnia (Chronic) RAMESH (obstructive sleep apnea) (Chronic) Palpitations (Chronic) Shoulder dislocation (Chronic) Surgical History History of kidney surgery (Chronic) History of appendectomy (Chronic) Family History Mother Diabetes Father CAD (coronary artery disease) Sister Lung cancer Son Kidney stone Social History Smoking Status: Never smoker alcohol intake: never substance use type: does not use ROS Const Const: Negative for fatigue, weakness, body ache, fever(s), headache(s), chills, frequent falls, night sweats, daytime sleepiness, difficulty sleeping, excessive sweating, weight gain, weight loss, increased appetite, poor appetite, anorexia or other Eyes Eyes: Negative for blind spots, loss of peripheral vision, transient loss of vision, blurry vision, change in vision, double vision, floaters, tunnel vision or other ENT ENT: Negative for headache(s), dizziness, hearing loss, tinnitus, Nosebleed/epistaxis, balance problems, post nasal drip, lip swelling, tongue swelling, bleeding gums, hoarseness, neck pain, dry mouth or other Cardio Chest Pain: No Resp Respiratory: Negative for SOB with activity, SOB at rest, SOB orthopnea\SOB lying down, Coughing up blood/hemoptysis, chest congestion, pain on inspiration, snoring, stridor, wheezing, crackles, paroxysmal nocturnal dyspnea or other GI GI: Negative nausea, vomiting, heartburn, constipation, belching, bloating, cramping, vomiting blood/hematemesis, bright, red blood in stools, black,tarry stools, loose stools, Difficulty Swallowing or other : Negative for hematuria, frequent nighttime urination/ nocturia, erectile dysfunction or abnormal vaginal bleeding Musc Musc: Negative for balance problems, muscle aches/ myalgia, muscle weakness or joint pain Skin Skin: Negative redness, non-healing lesions, rash, unusual bruising, skin ulcer, wounds, jaundice or other Neuro Neuro: Negative for weakness, headache(s), frequent falls, blurry vision, double vision, dizziness, lightheadedness, near syncope, syncope, orthostatic symptoms, confusion, memory loss, restless legs, vertigo, seizures, lack of coordination or other Delbert Hematologic/Lymphatic: Negative for easy bleeding, easy bruising, enlarged lymph nodes or other Endo Endo: Negative for fatigue, excessive sweating, cold intolerance, heat intolerance, flushing, increased thirst/drinking, increased hunger, hair loss, hair growth or other Psych Psych: Negative for anxiety, depression, thoughts of harming anyone, thoughts of harming yourself, visual hallucinations, panic attacks or audible hallucinations Allergy Allergy/Immunology: Negative for lip swelling, Negative for tongue swelling, Negative for rash, Negative for throat swelling, Negative for hives Cardiology Exam Const Appearance: cooperative, healthy appearing and no acute distress Nutritional Appearance: well nourished Orientation: alert, oriented x3 and oriented to person Head Head: normal to inspection, atraumatic and normocephalic Nose: external nose normal Face and Sinus: face symmetric Mouth: oral mucosae normal Eyes General: appearance normal, both eyes and all related structures Eyelids: eyelids normal Conjunctivae: conjunctivae normal Pupils: PERRL and normal by confrontation EOM: EOM intact bilaterally Neck Neck: normal visual inspection and full ROM Carotids: normal carotid upstroke Chest Chest inspection: normal inspection of the chest Auscultation: Bilateral: Clear to Auscultation Cardio Palpation: normal PMI Rate: regular rate Rhythm: regular rhythm Heart sounds: S1 normal and S2 normal GI GI: normal to inspection, no hepatosplenomegaly and bowel sounds present Neuro General: alert, oriented x3, awake, CN's II-XI intact bilaterally and moves all extremities Skin Skin: no rashes or lesions noted Extremities Pulses: Normal: Right Femoral Pulse, Left Femoral Pulse, Right Dorsalis Pedis Pulse, Left Dorsalis Pedis Pulse, Right Posterior Tibial Pulse, Left Posterior Tibial Pulse, Right Radial Pulse, Left Radial Pulse Lower Extremity Edema: None: Bilateral Psych Psychological: normal affect Assessment AND Plan 1. Atrial fibrillation I48.91 Plan 1. Atrial fibrillation: Patient had a mechanical fall after tripping over her dog in the middle of the night in the dark, had some mild dizziness and unsteady gait so was observed in hospital for a day or so. MRI of the brain was negative. Her Coumadin has been restarted given her atrial flutter on initial EKG assessment. She has been asymptomatic since that time. Her EKG today demonstrates atrial flutter with controlled ventricular response at a rate of 43 bpm, and if she remains in atrial flutter will make arrangements for her to undergo DC cardioversion in 4 weeks time once her INR has been therapeutic for at least 4 weeks in a row. Her heart rate is very well controlled. Continue flecainide. She is on no beta-madison therapy. Orders Orders: 2. Hypertension I10 Plan 2. Hypertension: Her blood pressure is under optimal control. Continue losartan therapy. 3. Pulmonary hypertension I27.20 Plan 3. Pulmonary hypertension: Patient was reportedly supposed to have an echocardiogram on her admission in [place] recently in January 2018, however this did not appear to occur. Would recommend repeating her echocardiogram to document her LV function and more importantly her pulmonary pressures given her history of pulmonary hypertension. 4. Return office in 6 months. This note was generated using a voice recognition system and there may be incorrect words, spelling or punctuation that were not noted when reviewing the office note prior to saving. Plan Detail Other Orders Orders: Follow Up +6M (Maikel) Coding Level of Care Code Off vis,est,level 3 Diagnoses Atrial fibrillation I48.91 Hypertension I10 Pulmonary hypertension I27.20 Coding Level of Care Code Off vis,est,level 3 Diagnoses Atrial fibrillation I48.91 Hypertension I10 Pulmonary hypertension I27.20 02/15/18 1022 <Electronically signed by Grant Ko MD> Date Grant Ko MD Cosigner Signature: Date (if applicable) CC: Joon Reed MD 12 LEAD EKG PERFORMED Observed: 02/15/2018 Status: F Source: [place] [facility] 10:12 AM [facility] [address] [place] [address] 12 Lead EKG performed by [facility] 02/15/18 1011 MR#: [id number] Acct: [id number] Name: KEISHA RED Rep #: [id number] : 1945 72 From: Grant Ko MD Attending Dr: Grant Ko MD Status: DEP AMB Ordering Dr: Grant Ko MD Date: 02/15/18 Location: [place] Sex: F C Admitted: BMS/12 Lead EKG performed by [facility] ECG Report Interpretation Atrial flutter Diffuse low voltage. -Anteroseptal infarct -age undetermined. ABNORMAL Electronically signed on 03/08/2018 at 09:31 by Grant Ko 03/08/18 0936 Date Grant Ko MD CC: Joon Reed MD Date Dictated: 02/15/18 1011 Date Transcribed: 02/15/181010 Bond Underwriter: Signed PROTHROMBIN TIME W/INR Collected: 02/15/2018 Status: F Source: [place] 9:39 AM [facility] TYPE CODE TESTS RESULT OUT OF RANGE REFERENCE UNITS LAB L300.4150 11.7-14.9 SECONDS High PROTIME 26.5 LAB L300.4200 Normal INR 2.4 Performed By: #### L300.3900 #### [facility] [address] [place], [address] PROTHROMBIN TIME W/INR Collected: 02/10/2018 Status: F Source: [place] 9:17 AM [facility] TYPE CODE TESTS RESULT OUT OF RANGE REFERENCE UNITS LAB L300.4150 11.7-14.9 SECONDS High PROTIME 19.0 LAB L300.4200 Normal INR 1.6 Performed By: #### L300.3900 #### [facility] [address] [place], [address] CNOV Observed: 02/02/2018 Status: COMPLETED Source: [place] 10:20 AM [facility] REPOSITORY Office Visit (INTMWS) KEISHA RED ([id number]) 1945 F Date Time Provider Department 02/02/18 10:20 AM NICOLLE TANG (DEPUTY DIRECTOR OF PUBLIC WORKS) INTMWS During your visit today, we recorded the following information about you: Pulse Respiration Blood pressure Weight 46/minute 18/minute 166/82 96.6 kg Nicolle Tang APRN.CNS 02/02/2018 12:17 PM Signed OUTPATIENT VISIT DATE February 02, 2018 OUTPATIENT VISIT TYPE ESTABLISHED PRIMARY CARE PHYSICIAN: Joon Reed MD CHIEF COMPLAINT: Patient presents with: Back Pain: using patches and tens unit History of Present Illness: Keisha Red is a 72 year old female who was last seen 09/2017 in . She has been seen in the past for ACTIVE PROBLEM LIST Congenital Obstructive Defects of Renal Pelvis and Ureter Calculus of Kidney Contact Dermatitis and Other Eczema Palpitations Obesity, Unspecified Allergic Rhinitis, Cause Unspecified Essential Hypertension Contact Dermatitis and Other Eczema, Due to Unspecified Cause Dizziness and Giddiness Unspecified Asthma(493.90) Calcaneal Spur Back Strain, recurrent Hyperlipemia Diabetes Mellitus Type 2, Controlled, Without Complications (Hcc) Rotator Cuff Tear Ddd (Degenerative Disc Disease), Lumbar Muscle Spasm Since the last visit, she states that she is noting mid back pain, same as previous occurrences. No heavy lifting or aggravating activity noted. No numbness, tingling, radiculopathy of lower extremities noted. No change in bowel or bladder. Using TENS unit which is helping. Previously when to Dr. Perez for injections but not currently. No home exercises, no current PT. Avoids NSAIDs per recommendation of environmental lead. 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 Agudelo - Dizziness and giddiness - Muscle spasm - Obesity, unspecified - Palpitations - Shoulder dislocation 12/06/11 Right shoulder s/p fall with reduction at [facility] - Type II or unspecified type diabetes mellitus without mention of complication, not stated as uncontrolled - Unspecified asthma(493.90) - Unspecified essential hypertension PAST SURGICAL HISTORY Procedure Laterality Date - APPENDECTOMY 1970s FAMILY HISTORY Problem Relation Age of Onset - Diabetes Mother - Coronary Artery Disease Father - Cancer Sister lung - nephrolithiasis [Other] [OTHER] Son Social History Substance Use Topics - Smoking status: Never Smoker - Smokeless tobacco: Never Used - Alcohol use No ALLERGIES: ALLERGIES Allergen Reactions - Amoxicillin Hives - Aspirin Hives, shortness of breath - Sulfa (Sulfonamide * Hives MEDICATIONS MAGNESIUM ORAL every day HYDROcodone-acetaminophen (NORCO) 5-325 mg per tablet Take one tablet by mouth twice a day as needed.Earliest Fill Date: 02/02/18 cyclobenzaprine (FLEXERIL) 10 mg tablet Take 1 tablet by mouth twice daily as needed for Muscle Spasm (may make drowsy, take before bedtime). lisinopril (ZESTRIL, PRINIVIL) 5 mg tablet TAKE 1 TABLET DAILY metFORMIN ER (GLUCOPHAGE XR) 500 mg 24 hr tablet TAKE 2 TABLETS TWICE A DAY WITH MEALS warfarin (COUMADIN) 5 mg tablet Take 5 mg by mouth once daily. losartan (COZAAR) 50 mg tablet budesonide-formoterol (SYMBICORT) 160-4.5 mcg/actuation inhaler Inhale 2 Puffs as instructed twice daily. glimepiride (AMARYL) 2 mg tablet Take 1 tablet by mouth once daily as needed. for blood sugar over 200. atorvastatin (LIPITOR) 10 mg tablet Take 1 tablet by mouth once daily. albuterol HFA (PROAIR HFA) 90 mcg/actuation inhaler Inhale 2 Puffs as instructed every 4 hours as needed. triamcinolone acetonide (KENALOG) 0.1 % cream Apply 1 application to affected area three times daily as needed. On left leg. Use this after severe flare up controlled with betamethasone blood sugar diagnostic (RELION PRIME TEST STRIPS) test strip Test glucose 1 x per day. Dx: 250.00. Insulin use: no TENS unit and electrodes cmpk 1 Each once daily. TENS UNIT ELECTRODES (TENS UNITS ELECTRODES) 2X2 ANDquot; pads Change pad every month as indicated flecainide (TAMBOCOR) 50 mg tablet Take 50 mg by mouth q 12 HR. REVIEW OF SYSTEMS: GENERAL: Negative for: Weight loss or gain, Fever or Chills, Weakness and Sleep difficulties. Physical Examination: BP 166/82 Pulse 46 Resp 18 Wt 213 lb (96.6kg) Extended Vitals not filed for this encounter. General appearance: Well appearing, alert, in no acute distress, well-hydrated, well nourished. Skin: Skin color, texture, turgor normal, no suspicious rashes or lesions Neck: Supple, no adenopathy; thyroid symmetric, normal size, no bruits Back: +paraspinal muscles spasms appreciated on palpation, thoracic level, mildly tender to palpation, TENS unit in place. Lungs: Lungs clear to auscultation. No wheezing, rhonchi, rales Heart: RRR without murmur, gallop, or rubs. Abdomen: Abdomen soft, non-tender. Bowel sounds normal. No masses, organomegaly Extremities: No edema, skin discoloration, clubbing or cyanosis. Good capillary refill. Neuro: Gait normal. Sensation grossly intact. Reviewed chart, outside records, tests OARRS website checked and validated. All prescriptions have been APPROPRIATELY filled. No suspicious activity was identified.- 02/02/2018 by Nicolle Tang APRN.DEPUTY DIRECTOR OF PUBLIC WORKS I personally interviewed, confirmed and edited the above information if obtained by others. TESTING: Glucose (mg/dL) Date Value 03/26/2017 Test sent to [facility]. Potassium (mmol/L) Date Value 03/26/2017 Test sent to [facility]. Sodium (mmol/L) Date Value 03/26/2017 Test sent to [facility]. Chloride (mmol/L) Date Value 03/26/2017 Test sent to [facility]. CO2 (mmol/L) Date Value 03/26/2017 Test sent to [facility]. Creatinine (mg/dL) Date Value 03/26/2017 Test sent to [facility]. BUN (mg/dL) Date Value 03/26/2017 Test sent to [facility]. Anion Gap (mmol/L) Date Value 03/26/2017 Test sent to [facility]. Calcium (mg/dL) Date Value 03/26/2017 Test sent to [facility]. Glucose (mg/dL) Date Value 03/26/2017 Test sent to [facility]. Potassium (mmol/L) Date Value 03/26/2017 Test sent to [facility]. Sodium (mmol/L) Date Value 03/26/2017 Test sent to [facility]. Chloride (mmol/L) Date Value 03/26/2017 Test sent to [facility]. CO2 (mmol/L) Date Value 03/26/2017 Test sent to [facility]. Creatinine (mg/dL) Date Value 03/26/2017 Test sent to [facility]. BUN (mg/dL) Date Value 03/26/2017 Test sent to [facility]. Anion Gap (mmol/L) Date Value 03/26/2017 Test sent to [facility]. Calcium (mg/dL) Date Value 03/26/2017 Test sent to [facility]. Protein, Total (g/dL) Date Value 01/01/2016 7.3 Albumin (g/dL) Date Value 01/01/2016 4.0 Bilirubin, Total (mg/dL) Date Value 01/01/2016 0.5 Alkaline Phosphatase (U/L) Date Value 01/01/2016 86 AST (U/L) Date Value 01/01/2016 20 ALT (U/L) Date Value 01/01/2016 18 Hemoglobin (g/dL) Date Value 12/06/2014 13.9 Hematocrit (%) Date Value 12/06/2014 40.8 WBC (k/uL) Date Value 12/06/2014 5.57 Cholesterol, Total (mg/dL) Date Value 01/01/2016 198 Cholesterol (no units) Date Value 01/15/2018 145 HDL Cholesterol Date Value 01/15/2018 66 01/01/2016 50 mg/dL LDL Cholesterol Date Value 01/15/2018 54 01/01/2016 125 mg/dL Triglyceride Date Value 01/15/2018 127 01/01/2016 115 mg/dL Hemoglobin A1C Date Value Ref Range Status 09/29/2017 6.1 (H) 4.3 - 5.6 % Final Comment: [place] [employer] guidelines indicate that patients with HgbA1c in the range 5.7-6.4% are at increased risk for development of diabetes, and intervention by lifestyle modification may be beneficial. HgbA1c greater or equal to 6.5% is considered diagnostic of diabetes. 03/26/2017 Test sent to [facility]. 4.0 - 6.0 % Final Comment: Account Credited HIDE 04/29/2016 6.8 (H) 4.3 - 5.6 % Final Comment: [place] [employer] guidelines indicate that patients with HgbA1c in the range 5.7-6.4% are at increased risk for development of diabetes, and intervention by lifestyle modification may be beneficial. HgbA1c greater or equal to 6.5% is considered diagnostic of diabetes. 01/01/2016 8.4 (H) 4.3 - 5.6 % Final Comment: [place] [employer] guidelines indicate that patients with HgbA1c in the range 5.7-6.4% are at increased risk for development of diabetes, and intervention by lifestyle modification may be beneficial. HgbA1c greater or equal to 6.5% is considered diagnostic of diabetes. 12/06/2014 7.6 (H) 4.0 - 6.0 % Final Comment: [place] [employer] guidelines indicate that patients with HgbA1c in the range 5.7-6.4% are at increased risk for development of diabetes, and intervention by lifestyle modification may be beneficial. HgbA1c greater or equal to 6.5% is considered diagnostic of diabetes. Ejection Fraction: No results found IMPRESSION: Ms. Red is a 72 year old woman presents for back pain. After my examination and review of data, I make the following recommendations. PLAN AND RECOMMENDATIONS: 1. Mid back pain - ICD9: 724.5, ICD10: M54.9 (primary diagnosis) - Ice for localized tenderness - Muscle relaxant- see orders - PT consult 2. Back strain, sequela - ICD9: 905.7, ICD10: S39.012S - HYDROCODONE 5 MG-ACETAMINOPHEN 325 MG TABLET - CYCLOBENZAPRINE 10 MG TABLET PT consult if so desires. Refer to spine physician if so desires. Advised to go to ER if develops chest pain, shortness of breath, or severe worsening of symptoms. Discussed risks, benefits, alternatives, and potential side effects of medications. Ms. Red expressed understanding and agreed with the plan. Nicolle Tang APRN.DEPUTY DIRECTOR OF PUBLIC WORKS Referring Provider: SELF [200] Allergies As of Date: 02/02/2018 Noted Allergy Reaction AMOXICILLIN 07/14/2005 4 - Hives ASPIRIN 01/30/2009 Comments: Hives, shortness of breath SULFA (SULFONAMIDE ANTIBIOTICS) 07/14/2005 4 - Hives Date Reviewed: 02/02/2018 Reviewed by: Iesha Martino) JAVIER Nieves - Fully Assessed Reason for Visit: Back Pain [12] Cmt: using patches and tens unit Primary Visit Diagnosis:Mid back pain [M54.9] Other Visit Diagnosis:Back strain, sequela [S39.012S] Order(s):HYDROcodone-acetaminophen (NORCO) 5-325 mg per tabletTake one tablet by mouth twice a day as needed. Earliest Fill Date: 02/02/18Disp: 30 tabletRfl: 0 cyclobenzaprine (FLEXERIL) 10 mg tabletTake 1 tablet by mouth twice daily as needed for Muscle Spasm (may make drowsy, take before bedtime).Disp: 30 tabletRfl: 0 Prescriptions as of 02/02/2018 Sig: MAGNESIUM ORAL every day HYDROCODONE 5 MG-ACETAMINOPHE* Take one tablet by mouth twic* CYCLOBENZAPRINE 10 MG TABLET Take 1 tablet by mouth twice * LISINOPRIL 5 MG TABLET TAKE 1 TABLET DAILY METFORMIN ER 500 MG TABLET,EX* TAKE 2 TABLETS TWICE A DAY WI* WARFARIN 5 MG TABLET Take 5 mg by mouth once daily. LOSARTAN 50 MG TABLET BUDESONIDE-FORMOTEROL HFA 160* Inhale 2 Puffs as instructed * GLIMEPIRIDE 2 MG TABLET Take 1 tablet by mouth once d* ATORVASTATIN 10 MG TABLET Take 1 tablet by mouth once d* ALBUTEROL SULFATE HFA 90 MCG/* Inhale 2 Puffs as instructed * TRIAMCINOLONE ACETONIDE 0.1 %* Apply 1 application to affect* BLOOD SUGAR DIAGNOSTIC STRIPS Test glucose 1 x per day. Dx:* TENS UNIT AND ELECTRODES COMB* 1 Each once daily. TENS UNIT ELECTRODES 2 X 2 * Change pad every month as ind* FLECAINIDE 50 MG TABLET Take 50 mg by mouth q 12 HR. Medication notes this encounter MAGNESIUM ORAL >> Iesha Nieves CMA, MA 02/02/2018 10:32 AM >> IESHA NIEVES CMA Feb 02, 2018 10:32 AM Received from: [facility] FLECAINIDE 50 MG TABLET >> Iesha Nieves CMA, MA 02/02/2018 10:32 AM >> IESHA NIEVES CMA Feb 02, 2018 10:32 AM Received from: External Pharmacy Received Sig: TAKE 1 TABLET BY MOUTH EVERY 12 HOURS NAPROXEN 500 MG TABLET >> Iesha Nieves CMA, MA 02/02/2018 10:28 AM >> IESHA NIEVES CMA Feb 02, 2018 10:27 AM Not taking MELOXICAM 7.5 MG TABLET >> Iesha TitoJAVIER CHAPPELL 02/02/2018 10:27 AM >> IESHA NIEVES CMA Feb 02, 2018 10:27 AM Completed Problem List As Of Date 02/02/2018 Noted Resolved 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 Essential hypertension [I10] More... DERMATITIS NOS [L25.9] DIZZINESS AND GIDDINESS [R42] ASTHMA UNSPECIFIED [J45.909] More... CALCANEAL SPUR [M77.30] INVALID FOR* Back Strain, recurrent [S39.012A] More... Hyperlipemia [E78.5] INVALID FOR* Diabetes mellitus type 2, controlled, without c* More... Rotator cuff tear [M75.100] INVALID FOR* DDD (degenerative disc disease), lumbar [M51.36] More... Muscle spasm [M62.838] Prescriptions ordered this encounter Disp Refills Start End HYDROCODONE 5 MG-ACETAMINOPHEN 325 M* 30 t* 0 02/02/2018 02/09/2018 Class: Print RX Sig: Take one tablet by mouth twice a day as needed. Earliest Fill Date: 02/02/18 CYCLOBENZAPRINE 10 MG TABLET 30 t* 0 02/02/2018 Route: ORAL Sig: Take 1 tablet by mouth twice daily as needed for Muscle Spasm (may make drowsy, take before bedtime). Medications Discontinued During This Encounter naproxen (NAPROSYN) 500 mg tablet 30 t* 0 09/29/2017 02/02/2018 Route: ORAL Sig: Take 1 tablet by mouth twice daily as needed (pain/inflammation, take with food.). Disc: Reason for discontinue is not on file. HYDROcodone-acetaminophen (NORCO) 5-* 30 t* 0 09/29/2017 02/02/2018 Class: Print RX Sig: Take one tablet by mouth twice a day as needed. Disc: Reason for discontinue is not on file. cyclobenzaprine (FLEXERIL) 10 mg tab* 30 t* 0 09/29/2017 02/02/2018 Route: ORAL Sig: Take 1 tablet by mouth twice daily as needed for Muscle Spasm (may make drowsy, take before bedtime). Disc: Reason for discontinue is not on file. meloxicam (MOBIC) 7.5 mg tablet 30 t* 0 09/29/2017 02/02/2018 Route: ORAL Sig: Take 1 tablet by mouth once daily. for pain. Take with food. Disc: Reason for discontinue is not on file. Encounter Status:Closed by NICOLLE CRUZ on 02/02/18 PROGRESS Observed: 02/02/2018 Status: COMPLETED Source: [place] 8:26 AM [facility] REPOSITORY HNO ID: [id number] Author: Nicolle Tang (Cns) Service: (none) Author Type: Nurse Specialist Type: Progress Notes Filed: 02/02/2018 12:17 PM Note Text: OUTPATIENT VISIT DATE February 02, 2018 OUTPATIENT VISIT TYPE ESTABLISHED PRIMARY CARE PHYSICIAN: Joon Reed MD CHIEF COMPLAINT: Patient presents with: Back Pain: using patches and tens unit History of Present Illness: Keisha Red is a 72 year old female who was last seen 09/2017 in . 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 No heavy lifting or aggravating activity noted. No numbness, tingling, radiculopathy of lower extremities noted. No change in bowel or bladder. Using TENS unit which is helping. Previously when to Dr. Perez for injections but not currently. No home exercises, no current PT. Avoids NSAIDs per recommendation of environmental lead. 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 Agudelo - Dizziness and giddiness - Muscle spasm - Obesity, unspecified - Palpitations - Shoulder dislocation 12/06/11 Right shoulder s/p fall with reduction at [facility] - Type II or unspecified type diabetes mellitus without mention of complication, not stated as uncontrolled - Unspecified asthma(493.90) - Unspecified essential hypertension PAST SURGICAL HISTORY Procedure Laterality Date - APPENDECTOMY 1970s FAMILY HISTORY Problem Relation Age of Onset - Diabetes Mother - Coronary Artery Disease Father - Cancer Sister lung - nephrolithiasis [Other] [OTHER] Son Social History Substance Use Topics - Smoking status: Never Smoker - Smokeless tobacco: Never Used - Alcohol use No ALLERGIES: ALLERGIES Allergen Reactions - Amoxicillin Hives - Aspirin Hives, shortness of breath - Sulfa (Sulfonamide * Hives MEDICATIONS MAGNESIUM ORAL every day HYDROcodone-acetaminophen (NORCO) 5-325 mg per tablet Take one tablet by mouth twice a day as needed.Earliest Fill Date: 02/02/18 cyclobenzaprine (FLEXERIL) 10 mg tablet Take 1 tablet by mouth twice daily as needed for Muscle Spasm (may make drowsy, take before bedtime). lisinopril (ZESTRIL, PRINIVIL) 5 mg tablet TAKE 1 TABLET DAILY metFORMIN ER (GLUCOPHAGE XR) 500 mg 24 hr tablet TAKE 2 TABLETS TWICE A DAY WITH MEALS warfarin (COUMADIN) 5 mg tablet Take 5 mg by mouth once daily. losartan (COZAAR) 50 mg tablet budesonide-formoterol (SYMBICORT) 160-4.5 mcg/actuation inhaler Inhale 2 Puffs as instructed twice daily. glimepiride (AMARYL) 2 mg tablet Take 1 tablet by mouth once daily as needed. for blood sugar over 200. atorvastatin (LIPITOR) 10 mg tablet Take 1 tablet by mouth once daily. albuterol HFA (PROAIR HFA) 90 mcg/actuation inhaler Inhale 2 Puffs as instructed every 4 hours as needed. triamcinolone acetonide (KENALOG) 0.1 % cream Apply 1 application to affected area three times daily as needed. On left leg. Use this after severe flare up controlled with betamethasone blood sugar diagnostic (RELION PRIME TEST STRIPS) test strip Test glucose 1 x per day. Dx: 250.00. Insulin use: no TENS unit and electrodes cmpk 1 Each once daily. TENS UNIT ELECTRODES (TENS UNITS ELECTRODES) 2X2 pads Change pad every month as indicated flecainide (TAMBOCOR) 50 mg tablet Take 50 mg by mouth q 12 HR. REVIEW OF SYSTEMS: GENERAL: Negative for: Weight loss or gain, Fever or Chills, Weakness and Sleep difficulties. Physical Examination: BP 166/82 Pulse 46 Resp 18 Wt 213 lb (96.6kg) Extended Vitals not filed for this encounter. General appearance: Well appearing, alert, in no acute distress, well-hydrated, well nourished. Skin: Skin color, texture, turgor normal, no suspicious rashes or lesions Neck: Supple, no adenopathy; thyroid symmetric, normal size, no bruits Back: +paraspinal muscles spasms appreciated on palpation, thoracic level, mildly tender to palpation, TENS unit in place. Lungs: Lungs clear to auscultation. No wheezing, rhonchi, rales Heart: RRR without murmur, gallop, or rubs. Abdomen: Abdomen soft, non-tender. Bowel sounds normal. No masses, organomegaly Extremities: No edema, skin discoloration, clubbing or cyanosis. Good capillary refill. Neuro: Gait normal. Sensation grossly intact. Reviewed chart, outside records, tests OAS website checked and validated. All prescriptions have been APPROPRIATELY filled. No suspicious activity was identified.- 02/02/2018 by Nicolle Tang APRN.DEPUTY DIRECTOR OF PUBLIC WORKS I personally interviewed, confirmed and edited the above information if obtained by others. TESTING: Glucose (mg/dL) Date Value 03/26/2017 Test sent to [facility]. Potassium (mmol/L) Date Value 03/26/2017 Test sent to [facility]. Sodium (mmol/L) Date Value 03/26/2017 Test sent to [facility]. Chloride (mmol/L) Date Value 03/26/2017 Test sent to [facility]. CO2 (mmol/L) Date Value 03/26/2017 Test sent to [facility]. Creatinine (mg/dL) Date Value 03/26/2017 Test sent to [facility]. BUN (mg/dL) Date Value 03/26/2017 Test sent to [facility]. Anion Gap (mmol/L) Date Value 03/26/2017 Test sent to [facility]. Calcium (mg/dL) Date Value 03/26/2017 Test sent to [facility]. Glucose (mg/dL) Date Value 03/26/2017 Test sent to [facility]. Potassium (mmol/L) Date Value 03/26/2017 Test sent to [facility]. Sodium (mmol/L) Date Value 03/26/2017 Test sent to [facility]. Chloride (mmol/L) Date Value 03/26/2017 Test sent to [facility]. CO2 (mmol/L) Date Value 03/26/2017 Test sent to [facility]. Creatinine (mg/dL) Date Value 03/26/2017 Test sent to [facility]. BUN (mg/dL) Date Value 03/26/2017 Test sent to [facility]. Anion Gap (mmol/L) Date Value 03/26/2017 Test sent to [facility]. Calcium (mg/dL) Date Value 03/26/2017 Test sent to [facility]. Protein, Total (g/dL) Date Value 01/01/2016 7.3 Albumin (g/dL) Date Value 01/01/2016 4.0 Bilirubin, Total (mg/dL) Date Value 01/01/2016 0.5 Alkaline Phosphatase (U/L) Date Value 01/01/2016 86 AST (U/L) Date Value 01/01/2016 20 ALT (U/L) Date Value 01/01/2016 18 Hemoglobin (g/dL) Date Value 12/06/2014 13.9 Hematocrit (%) Date Value 12/06/2014 40.8 WBC (k/uL) Date Value 12/06/2014 5.57 Cholesterol, Total (mg/dL) Date Value 01/01/2016 198 Cholesterol (no units) Date Value 01/15/2018 145 HDL Cholesterol Date Value 01/15/2018 66 01/01/2016 50 mg/dL LDL Cholesterol Date Value 01/15/2018 54 01/01/2016 125 mg/dL Triglyceride Date Value 01/15/2018 127 01/01/2016 115 mg/dL Hemoglobin A1C Date Value Ref Range Status 09/29/2017 6.1 (H) 4.3 - 5.6 % Final Comment: [place] [employer] guidelines indicate that patients with HgbA1c in the range 5.7-6.4% are at increased risk for development of diabetes, and intervention by lifestyle modification may be beneficial. HgbA1c greater or equal to 6.5% is considered diagnostic of diabetes. 03/26/2017 Test sent to [facility]. 4.0 - 6.0 % Final Comment: Account Credited HIDE 04/29/2016 6.8 (H) 4.3 - 5.6 % Final Comment: [place] [employer] guidelines indicate that patients with HgbA1c in the range 5.7-6.4% are at increased risk for development of diabetes, and intervention by lifestyle modification may be beneficial. HgbA1c greater or equal to 6.5% is considered diagnostic of diabetes. 01/01/2016 8.4 (H) 4.3 - 5.6 % Final Comment: [place] [employer] guidelines indicate that patients with HgbA1c in the range 5.7-6.4% are at increased risk for development of diabetes, and intervention by lifestyle modification may be beneficial. HgbA1c greater or equal to 6.5% is considered diagnostic of diabetes. 12/06/2014 7.6 (H) 4.0 - 6.0 % Final Comment: [place] [employer] guidelines indicate that patients with HgbA1c in the range 5.7-6.4% are at increased risk for development of diabetes, and intervention by lifestyle modification may be beneficial. HgbA1c greater or equal to 6.5% is considered diagnostic of diabetes. Ejection Fraction: No results found IMPRESSION: Ms. Red is a 72 year old woman presents for back pain. After my examination and review of data, I make the following recommendations. PLAN AND RECOMMENDATIONS: 1. Mid back pain - ICD9: 724.5, ICD10: M54.9 (primary diagnosis) - Ice for localized tenderness - Muscle relaxant- see orders - PT consult 2. Back strain, sequela - ICD9: 905.7, ICD10: S39.012S - HYDROCODONE 5 MG-ACETAMINOPHEN 325 MG TABLET - CYCLOBENZAPRINE 10 MG TABLET PT consult if so desires. Refer to spine physician if so desires. Advised to go to ER if develops chest pain, shortness of breath, or severe worsening of symptoms. Discussed risks, benefits, alternatives, and potential side effects of medications. Ms. Red expressed understanding and agreed with the plan. Nicolle Tang APRN.DEPUTY DIRECTOR OF PUBLIC WORKS PROTHROMBIN TIME W/INR Collected: 01/29/2018 Status: F Source: [place] 9:02 AM [facility] [place] TYPE CODE TESTS RESULT OUT OF RANGE REFERENCE UNITS LAB L300.4150 11.7-14.9 SECONDS High PROTIME 19.9 LAB L300.4200 Normal INR 1.7 Performed By: #### L300.3900 #### [facility] [address], [address] OFFICE VISIT REPORT Observed: 01/15/2018 Status: F Source: [place] 2:07 PM [facility] [address] [address] OFFICE VISIT Date of Service: 12/31/17 MR#: [id number] Acct: [id number] Patient: KEISHA RED Rep #: [id number] : [id number] Provider: Grant Ko MD Age/Sex: 72/F Location: [place] Status: Signed Intake Intake Visit Reasons: Started Flecainide Chief Complaint: shortness of breath Allergies Sulfa (Sulfonamide Antibiotics) Allergy (Intermediate, Verified 11/26/17 09:21) Hives amoxicillin Allergy (Verified 11/26/17 09:21) Hives aspirin Allergy (Verified 11/26/17 09:21) Unknown Medications Glimepiride [Amaryl] 2 mg PO DAILY PRN 09/23/15 [History Confirmed 11/26/17] Metformin HCl [Glucophage] 1,000 mg PO BID 09/23/15 [History Confirmed 11/26/17] Atorvastatin Calcium [Lipitor] 10 mg PO QHS #30 tab 12/25/16 [Rx Confirmed 11/26/17] Warfarin [Coumadin] 5 mg PO DAILY 06/03/17 [History Confirmed 12/23/17] Hydrocodone Bitart/Apap 5-325 [Vernon 5/325] 1 - 2 tab PO Q6H PRN PRN #12 tab 08/14/17 [Rx Confirmed 11/26/17] Losartan Potassium [Cozaar] 50 mg PO DAILY 08/14/17 [History Confirmed 11/26/17] albuterol sulfate HFA 90 mcg/actuation aerosol inhaler 2 puff INHALATION Q4H PRN g 10/29/17 [History Confirmed 11/26/17] cyclobenzaprine 10 mg tablet 10 mg PO BID PRN tab 11/03/17 [History Confirmed 11/26/17] fluticasone-salmeterol 115 mcg-21 mcg/actuation HFA aerosol inhaler 2 puff INHALATION BID #1 device 11/03/17 [Rx Confirmed 11/26/17] lisinopril 5 mg tablet 5 mg PO QDAY 11/03/17 [History Confirmed 11/26/17] potassium 99 mg tablet 99 mg PO QDAY 11/03/17 [History Confirmed 11/26/17] prednisone 10 mg tablet 10 mg PO .COMPLEX #30 tab 11/03/17 [Rx Confirmed 11/26/17] budesonide-formoterol HFA 160 mcg-4.5 mcg/actuation aerosol inhaler 2 puff INHALATION BID #1 ea 11/12/17 [Rx Confirmed 11/26/17] magnesium oxide 400 mg capsule 400 mg PO QDAY cap 11/18/17 [History Confirmed 11/26/17] flecainide 50 mg tablet 50 mg PO Q12H #60 tab 12/22/17 [Rx] Assessment AND Plan Orders Orders: Nursing Note Patient in for EKG after being started on Flecainide 50mg BID x 1 week. EKG completed. Patient appears to be in atrial flutter. Patient states that she is asymptomatic with atrial flutter. EKG to be reviewed by Dr. Ko. 01/15/18 1407 <Electronically signed by Grant Ko MD> Date Grant Ko MD Cosigner Signature: Date (if applicable) CC: Lisandra Walsh PROTHROMBIN TIME W/INR Collected: 01/15/2018 Status: F Source: [place] 7:49 AM [facility] [place] TYPE CODE TESTS RESULT OUT OF RANGE REFERENCE UNITS LAB L300.4150 11.7-14.9 SECONDS High PROTIME 25.1 LAB L300.4200 Normal INR 2.3 Performed By: #### L300.3900 #### [facility] [address] [place] [place], [address] LIVER PROFILE Collected: 01/15/2018 Status: F Source: [place] 7:48 AM [facility] Order Comment: Order Date: 07/30/17 Order Info: 0788-1 - *Hepatic Function Panel Order Info: [id number] - *Lipid Profile CC PCP Comments: 12 hours fasting, may have water. TYPE CODE TESTS RESULT OUT OF RANGE REFERENCE UNITS LAB L501.1500 6.4-8.2 g/dL Normal T PROT 7.3 LAB L501.1800 3.2-5.0 g/dL Normal ALB 3.6 LAB L501.1950 2.2-4.2 g/dL Normal GLOB 3.7 LAB L501.4100 15-37 U/L Normal AST 19 LAB L501.4305 45-117 U/L Normal ALK P 92 LAB L501.4405 13-56 U/L Normal ALT 19 Result Comment: Please note revised ALT reference range effective 2017. LAB L501.4600 0.20-1.00 mg/dL Normal T BILI 0.50 LAB L501.4700 0.00-0.30 mg/dL Normal D BILI 0.10 Performed By: #### L500.3400 #### [facility] [address] [place], [address] LIPID PROFILE Collected: 01/15/2018 Status: F Source: [place] 7:48 AM [facility] Order Comment: Order Date: 07/30/17 Order Info: [id number] - *Hepatic Function Panel Order Info: [id number] - *Lipid Profile CC PCP Comments: 12 hours fasting, may have water. TYPE CODE TESTS RESULT OUT OF RANGE REFERENCE UNITS LAB L501.4900 200 mg/dL Normal CHOL 145 Result Comment: <200 mg/dL Desirable 200-240 mg/dL Borderline >240 mg/dL High Risk LAB L501.5000 mg/dL Normal TRIG 127 Result Comment: The drugs N-Acetylcysteine and Metamizole may falsely depress this assay. Serum Triglycerides Reference Interval Normal <150 mg/dL Borderline high 150 - 199 mg/dL High 200 - 499 mg/dL Very High > or = 500 mg/dL LAB L501.6400 mg/dL Normal HDL 66 Result Comment: The drugs N-Acetylcysteine and Metamizole may falsely depress this assay. Reference Range HDL <40 mg/dL Low HDL Cholesterol HDL >or= 60 mg/dL High HDL Cholesterol LAB L501.6500 0-130 mg/dL Normal LDL 54 LAB L501.6600 5-40 mg/dL Normal VLDL 25 Performed By: #### L500.4100 #### [facility] [address] [place], [address] PROTHROMBIN TIME W/INR Collected: 01/07/2018 Status: F Source: [place] 10:36 AM [facility] TYPE CODE TESTS RESULT OUT OF RANGE REFERENCE UNITS LAB L300.4150 11.7-14.9 SECONDS High PROTIME 22.7 LAB L300.4200 Normal INR 2.0 Performed By: #### L300.3900 #### [facility] [address] [place], [address] 12 LEAD EKG PERFORMED Observed: 12/31/2017 Status: F Source: [place] BY [facility] 9:27 AM [facility] [address] [place] [address] 12 Lead EKG performed by [facility] 12/31/17925 MR#: [id number] Acct: [id number] Name: KEISHA RDE Rep #: [id number] : 1945 72 From: Grant Ko MD Attending Dr: Grant Ko MD Status: DEP AMB Ordering Dr: Grant Ko MD Date: 12/31/17 Location: [place] Sex: F C Admitted: BMS/12 Lead EKG performed by [facility] ECG Report Interpretation 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 Low voltage -possible pulmonary disease. ABNORMAL Electronically signed on 03/08/2018 at 09:31 by Grant Ko 03/08/1836 Date Grant Ko MD CC: Joon Reed MD Date Dictated: 12/31/17925 Date Transcribed: 12/31/17925 Bond Underwriter: Signed PROTHROMBIN TIME W/INR Collected: 12/31/2017 Status: F Source: [place] 9:08 AM [facility] TYPE CODE TESTS RESULT OUT OF RANGE REFERENCE UNITS LAB L300.4150 11.7-14.9 SECONDS High PROTIME 19.5 LAB L300.4200 Normal INR 1.6 Performed By: #### L300.3900 #### [facility] [address] [place], [address] PROTHROMBIN TIME W/INR Collected: 12/23/2017 Status: F Source: [place] 9:54 AM [facility] Order Comment: Comments: STANDING ORDER TYPE CODE TESTS RESULT OUT OF RANGE REFERENCE UNITS LAB L300.4150 11.7-14.9 SECONDS High PROTIME 19.0 LAB L300.4200 Normal INR 1.6 Performed By: #### L300.3900 #### [facility] [address] [place], [address] PROTHROMBIN TIME W/INR Collected: 12/03/2017 Status: F Source: [place] 9:42 AM [facility] Order Comment: Comments: Do same time as Magnesium level next week Comments: Do same time as Magnesium level next week TYPE CODE TESTS RESULT OUT OF RANGE REFERENCE UNITS LAB L300.4150 11.7-14.9 SECONDS High PROTIME 19.1 LAB L300.4200 Normal INR 1.7 Performed By: #### L300.3900, L501.5200 #### [facility] [address] [place], [place], [address] MAGNESIUM Collected: 12/03/2017 Status: F Source: [place] 9:42 AM [facility] TYPE CODE TESTS RESULT OUT OF RANGE REFERENCE UNITS LAB L501.5200 1.6-2.6 mg/dL Normal MG 1.6 Result Comment: Please note revised Magnesium reference range effective 2017. Performed By: #### L300.3900, L501.5200 #### [facility] [address] [place], [address] PULMONARY VISIT REPORT Observed: 11/26/2017 Status: F Source: [place] 4:04 PM [facility] [address] [place] [address] OFFICE VISIT Date of Service: 11/26/17 MR#: [id number] Acct: [id number] Name: KEISHA RED Rep #: [id number] : 1945 Provider: Leeanna Mascorro Age/Sex: 72/F Location: [facility] Status: Signed Assessment AND Plan Problems 1. Moderate asthma without complication, unspecified whether persistent J45.909 Status Chronic Plan She is no longer an exacerbation of her asthma. She has regained compliant with her maintenance medications. She has been educated on the fact that maintenance medications are designed to prevent her from having recurrent exacerbations. She has applied for financial assistance for her prescriptions. Keep previously scheduled routine follow-up. Contact the office if she develops any recurrent symptoms of exacerbation. Plan Detail Follow Up 3 Months (DMB) HPI 1 W FU: Chief Complaint: shortness of breath HPI Comments Details: This patient presents to the office today to follow- up after a recent exacerbation of her asthma. She is ambulatory and currently on room air. She reports that she completed the prednisone burst. She states that her breathing is doing much better. She admits that she believes some of her symptoms were caused because she ran out of her maintenance medication. She was provided with some Symbicort samples at her last office visit. She was switched to Advair due to prescription drug coverage. She has yet to pickle pumper the Advair, she is finishing up the Symbicort she currently has. She does not have a pro- air rescue inhaler, but she reports that she does not feel the need for it. She was pleased with the results of the prednisone burst, and her own words she states that he did amazing. Currently, she denies any cough, we think or shortness of breath. She denies any hemoptysis or sputum production. She denies any fever, chills or body aches. See complete review of systems. Intake Vital Signs11/26/17 Height 5 ft 8 in 11/26/17 Weight: 201 lb Intake Visit Reasons: 1 W FU Accompanied by: Self Allergies Sulfa (Sulfonamide Antibiotics) Allergy (Intermediate, Verified 11/26/17 09:21) Hives amoxicillin Allergy (Verified 11/26/17 09:21) Hives aspirin Allergy (Verified 11/26/17 09:21) Unknown Medications Glimepiride [Amaryl] 2 mg PO DAILY PRN 09/23/15 [History Confirmed 11/26/17] Metformin HCl [Glucophage] 1,000 mg PO BID 09/23/15 [History Confirmed 11/26/17] Atorvastatin Calcium [Lipitor] 10 mg PO QHS #30 tab 12/25/16 [Rx Confirmed 11/26/17] Warfarin [Coumadin] 5 mg PO DAILY 06/03/17 [History Confirmed 11/26/17] Hydrocodone Bitart/Apap 5-325 [Vernon 5/325] 1 - 2 tab PO Q6H PRN PRN #12 tab 08/14/17 [Rx Confirmed 11/26/17] Losartan Potassium [Cozaar] 50 mg PO DAILY 08/14/17 [History Confirmed 11/26/17] albuterol sulfate HFA 90 mcg/actuation aerosol inhaler 2 puff INHALATION Q4H PRN g 10/29/17 [History Confirmed 11/26/17] cyclobenzaprine 10 mg tablet 10 mg PO BID PRN tab 11/03/17 [History Confirmed 11/26/17] fluticasone-salmeterol 115 mcg-21 mcg/actuation HFA aerosol inhaler 2 puff INHALATION BID #1 device 11/03/17 [Rx Confirmed 11/26/17] lisinopril 5 mg tablet 5 mg PO QDAY 11/03/17 [History Confirmed 11/26/17] potassium 99 mg tablet 99 mg PO QDAY 11/03/17 [History Confirmed 11/26/17] prednisone 10 mg tablet 10 mg PO .COMPLEX #30 tab 11/03/17 [Rx Confirmed 11/26/17] budesonide-formoterol HFA 160 mcg-4.5 mcg/actuation aerosol inhaler 2 puff INHALATION BID #1 ea 11/12/17 [Rx Confirmed 11/26/17] magnesium oxide 400 mg capsule 400 mg PO QDAY cap 11/18/17 [History Confirmed 11/26/17] [facility] Medical History RAMESH (obstructive sleep apnea) (Chronic) Asthma (Chronic) Viral URI with cough (Acute) USP (current) use of anticoagulants (Chronic) Atrial fibrillation (Chronic) 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) Cystitis (Acute) Allergic rhinitis (Chronic) BMI 33.0-33.9,adult (Chronic) Contact dermatitis and other eczema (Chronic) DDD (degenerative disc disease) (Chronic) Diabetes mellitus (Chronic) Dizziness and giddiness (Chronic) Dyslipidemia (Chronic) History of Coumadin therapy (Chronic) Hx of bladder infections (Chronic) Hypersomnia (Chronic) RAMESH (obstructive sleep apnea) (Chronic) Obesity (Chronic) Other secondary pulmonary hypertension (Chronic) Palpitations (Chronic) Shoulder dislocation (Chronic) Surgical History History of appendectomy (Chronic) Family History Mother Diabetes Father CAD (coronary artery disease) Sister Lung cancer Son Kidney stone Social History Smoking Status: Never smoker alcohol intake: never substance use type: does not use Review of Systems Const CONSTITUTIONAL: Positive body ache; negative anorexia, chills, daytime sleepiness, fever(s), night sweats, oral thrush, stops breathing during sleep, weight loss, sleeping in chair, fatigue, weight loss, weight gain, frequent colds, seasonal allergies, other, headache(s) or orthopnea EETM Ear Nose Throat Mouth: Positive hearing normal; negative hard of hearing, hoarseness, dry mouth in morning, change in vision, itchy eyes, eye pain, swallowing Difficulty, ear pain, nose bleed, headache(s), mouth pain, nasal congestion, nasal discharge, post nasal drip, sinus pain, sinus pressure, sore throat or other Cardio Cardiovascular: Negative chest pain, chest pain at rest, chest pain with activity, irregular heart rhythm, edema, shortness of breath when lying down, palpitations, murmur or other Resp Respiratory: Positive as per HPI; negative shortness of breath, pain with cough, wheezing, chest congestion, cough, chest tightness, pain on inspiration, inhalers, increase use of rescue inhalers, snoring, apnea or other Gastro Gastrointestional: Negative bloody stools, change in appetite, difficulty swallowing, reflux, hematemesis, melena stool, loose stool, constipation or other Genitourinary: Negative blood in urine, nocturia, pain with urination or other Musc Musculoskeletal: Positive body pain; negative back pain, neck pain or other Skin/Breast Skin/Breast: Negative dry skin, itching, rash, unusual bruising, breast lump or other Neuro Neurological: Negative restless legs, confusion, weakness or other Psych Psychocological: Negative abnormal sleep pattern, anxiety, thoughts of hurting self/others, hopelessness or other Lymph Lymphatic: Negative easy bleeding, easy bruising, swollen lymph nodes or other Exam Const Constitutional: Positive conversant, cooperative, in no acute respiratory distress, healthy appearing, well developed, well nourished, good hygiene and obese Head Head: Positive normocephalic and atraumatic; negative cyanosis of lips/distal nose Eyes Eye: Positive clear conjunctiva and nystagmus; negative scleral abnormality Ears Ear: Positive hearing normal and external ears normal; negative hard of hearing Nose Nose: Positive external nose normal and no nasal discharge; negative epistaxis Mouth Mouth: Positive oral mucosae normal, dentures, no lesions and crowded posterior oropharynx; negative post nasal drip, oral thrush present or malodorous breath Mallampati Score: III: Mallampati Score Neck Neck: Positive normal visual inspection, full ROM, trachea midline, thick neck and female neck greater than 37 cm (15 in); negative lymphadenopathy, JVD or tender Chest Wall Chest: Positive normal inspection of the chest and symmetric chest movement; negative increased A/P diameter Resp lung sounds: Positive clear to auscultation, good air exchange, normal expiratory time and normal respiratory effort; negative wheezes, rhonchi, rales, wheeze present on forced exhalation, dullness to percussion, increased work of breathing or use of accessory muscles Cardio Cardiac: Positive regular rate, regular rhythm, S1 normal and S2 normal; negative murmur GI GI: Positive normal to inspection, normal bowel sounds and obese; negative distended Genitourinary: Positive deferred Musc Musculoskeletal: Positive steady gait and ROM normal; negative kyphosis or scoliosis Skin Pulmonary Skin Exam: Positive intact; negative rash, lesion, ulcers, erythema, scaly or dermal atrophy Pulses Pulse: Yes pulses normal x4 extremities Extremities Extremities: No edema, Yes capillary refill normal, No clubbing, No cyanosis, No stasis dermatitis Neuro Neurologic: Yes conversant, Yes no focal neuro deficits, Yes cooperative, Yes normal cognition, Yes normal coordination, Yes understands questions, Yes normal concentration Lymph Lymphatic: No lymphadenopathy, No tenderness, No cervical adenopathy, No axillary adenopathy Psych Appearance: Positive grossly normal, eye contact and well kempt Mental Status: Positive mental status grossly normal Mood: Positive congruent mood Affect: Positive normal affect Coding Level of Care Code Off vis,est,level 3 Diagnoses Moderate asthma without complication, unspecified whether persistent J45.909 Asthma severity: moderate Asthma persistence: unspecified Asthma complication type: uncomplicated 11/26/17 1604 <Electronically signed by Leeanna ZHOU> Date Leeanna ZHOU Cosigner Signature: Date (if applicable) CC: Joon Reed MD ALLERGIES ALLERGIES DATE TYPE / NAME / CODE REACTION SEVERITY SOURCE CODE 10/07/2018 Drug Sulfa Hives [place] Allergy/41 (Sulfonamide Community 0124355( Antibiotics)/F[address] [place]) 277651(RXNORM) Repository 10/07/2018 Drug aspirin/[id number] Hives, SOB [place] Allergy/41 7(RXNORM) [facility] 10/07/2018 Drug amoxicillin/F0060 Hives [place] Allergy/41 54902(RXNORM) Community 2400943([facility] CT) Repository 04/30/2016 DRUG ALBUTEROL SULFATE CONTRAINDICA [place] [address] [address] [place] 2363110(SN Repository OMED CT) 01/30/2009 DRUG ASPIRIN [place] [address] [place] 2958867( Repository OMED CT) 07/14/2005 DRUG AMOXICILLIN HIVES [place] [address] [place] 4453814( Repository OMED CT) 07/14/2005 Drug SULFA HIVES [facility] Class/4195 (SULFONAMIDE [place] [address](SNOM ANTIBIOTICS) Repository ED CT) ENCOUNTERS ENCOUNTERS ADMIT/DISCHARGE ACCOUNT ADMITTING ENCOUNTER LOCATION SOURCE NUMBER CLASS 10/26/2018 [id number] Ambulatory [place] [facility] ing[facility]LAB Repository 10/11/2018/10/11/20 [id number] Ambulatory [place] [facility] ing:LAB Repository 10/11/2018/10/11/20 [id number] Ambulatory BMSBuilding:B [place] 18 [facility] Repository 09/14/2018/09/24/20 [id number] Amb[place] [facility] ing:LAB Repository 09/14/2018/09/14/20 [id number] Ambulatory [address] [place] Repository 09/14/2018/09/27/20 [id number] Ambulatory [address] [place] Repository 09/07/2018/09/07/20 [id number] Ambulatory BMSBuilding:B [place] 18 [facility] Repository 09/01/2018/09/02/20 [id number] Ambulatory [address] [place] Repository 08/04/2018/08/04/20 [id number] Ambulatory [place] [facility] [place] Repository 07/19/2018/07/19/20 [id number] Ambulatory [place] 18 [facility] ing:LAB Repository 07/08/2018/07/23/20 [id number] Ambulatory [address] [place] Repository 07/02/2018/07/02/20 [id number] Ambulatory [address] [place] Repository 06/21/2018/06/21/20 [id number] Ambulatory [place] 18 [facility] ing:LAB Repository 04/30/2018/04/30/20 [id number] Ambulatory [place] 18 [facility] ing:LAB Repository 04/09/2018/04/09/20 [id number] Ambulatory [place] 18 [facility] ing:LAB Repository 03/23/2018/03/23/20 [id number] Ambulatory BMSBuilding:B [place] 18 [facility] Repository 03/23/2018/03/23/20 [id number] Ambulatory [place] 18 [facility] ing:LAB Repository 03/17/2018 [id number] Ambulatory BMSBuilding:W [place] [facility] Repository 03/17/2018 [id number] Ambulatory BMSBuilding:[place] Repository 03/17/2018 [id number] Ambulatory BMSBuilding:B [place] Repository 03/17/2018 [id number] Ambulatory [facility] Hospital ing:[facility] Repository 03/09/2018 [id number] Ambulatory [facility] Hospital ing:LAB Repository 03/09/2018/03/09/20 [id number] Ambulatory BMSBuilding:B [place] 18 [facility] Repository 02/25/2018/02/26/20 [id number] Ambulatory BMSBuilding:B [place] 18 [facility] Repository 02/24/2018 [id number] Ambulatory [facility] Hospital ing:[facility] Repository 02/24/2018 [id number] Ambulatory BMSBuilding:W [facility] Repository 02/22/2018/02/23/20 [id number] Ambulatory [address] HospitalBuild Hospital ing:LAB Repository 02/15/2018/02/16/20 [id number] Ambulatory BMSBuilding:B [place] 18 [facility] Repository 02/10/2018 [id number] Ambulatory [facility] Hospital ing:LAB Repository 02/02/2018/02/03/20 [id number] Ambulatory [address] Repository 01/15/2018/01/16/20 [id number] Ambulatory [address] HospitalBuild Hospital ing:LAB Repository 12/31/2017/01/01/20 [id number] Ambulatory BMSBuilding:B [place] 18 [facility] Repository 12/03/2017/01/01/20 [id number] Ambulatory [address] Hospitalild Hospital ing:LAB Repository 11/26/2017/11/26/19 [id number] Ambulatory BMSBuilding:B [place] 18 [facility] Repository PAYERS PAYERS ENCOUNTER GUARANTOR PAYER SUBSCRIBER SOURCE 10/26/2018 KEISHA L Primary KEISHA L [place] [id number] [place]: [facility] [id number] [place] Repository 58360Iet: (330) Number: [phone] () [id number] Date: [place], [place] [address]WC: 10/26/2018 Secondary NOT GIVENUNK [place] Insurance:SELF PAY [facility] Number: Effective Repository Date:2018-10-25 10/11/2018 KEISHA L Primary KEISHA L [place] [id number] Insurance:[place]OB: [facility] [id number] [place] Repository 17[address]Glg: (330) Number: [phone] () [id number] Date: [place], [place] [address]KC: 10/11/2018 Secondary NOT GIVENUNK [place] Insurance:SELF PAY [facility] Number: Effective Repository Date:2018-09-27 10/11/2018 KEISHA L Primary KEISHA L [place] [id number] Insurance:[place]OB: [facility] [id number] [facility] [place] Repository 403[address]Uyw: (330) Number: [phone] () [id number] Date: [place], [place] [address]YA: 10/11/2018 Secondary NOT GIVENUNK [place] Insurance:SELF PAY [facility] Number: Effective Repository Date:2018-10-11 09/14/2018 KEISHA L Primary KEISHA L [place] [id number] Insurance:[place]: [facility] [id number] [place] Repository 7[address]Ryx: (330) Number: [phone] () [id number] Date: [place], [place] [address]WU: 09/14/2018 Secondary NOT GIVENUNK [place] Insurance:SELF PAY [facility] Number: Effective Repository Date:2018-07-28 09/07/2018 KEISHA L Primary KEISHA L [place] [id number] Insurance:[place]: [facility] [id number] [place] Repository 36560Sfu: (330) Number: [phone] () [id number] Date: [place], [place] [address]PW: 09/07/2018 Secondary NOT GIVENUNK [place] Insurance:SELF PAY [facility] Number: Effective Repository Date:2018-08-31 07/19/2018 KEISHA L Primary KEISHA L [place] [id number] Insurance:[place]OB: [facility] [id number] [place] Repository [address]Zia: (330) Number: [phone] () [id number] Date: [place], [place] [address]BT: 07/19/2018 Secondary NOT GIVENUNK [place] Insurance:SELF PAY [facility] Number: Effective Repository Date:2018-06-29 06/21/2018 KEISHA L Primary KEISHA L [place] [id number] Insurance:[place]: [facility] [id number] [place] Repository 3[address]Lbw: (330) Number: [phone] () [id number] Date: [place], [place] [address]EN: 06/21/2018 Secondary NOT GIVENUNK [place] Insurance:SELF PAY [facility] Number: Effective Repository Date:2018-05-27 04/30/2018 KEISHA L Primary KEISHA L [place] [id number] Insurance:[place]OB: [facility] CARE [id number] Repository [address]Bkr: (330) Number: [phone] () [id number] Date: [place], [place] [address]VQ: 04/30/2018 Secondary NOT GIVENUNK [place] Insurance:SELF PAY [facility] Number: Effective Repository Date:2018-04-23 04/09/2018 KEISHA L Primary KEISHA L [place] [id number] Insurance:[place]OB: [facility] [id number] Repository [address]Xer: (330) Number: [phone] () [id number] Date: [place], [place] [address]FO: 04/09/2018 Secondary NOT GIVENUNK [place] Insurance:SELF PAY [facility] Number: Effective Repository Date:2018-03-25 03/23/2018 KEISHA L Primary KEISHA L [place] [id number] Insurance:[place]OB: [facility] [id number] Rep[place] [address]Qao: (330) Number: [phone] () [id number] Date: [place], [place] [address]HV: 03/23/2018 Secondary NOT GIVENUNK [place] Insurance:SELF PAY [facility] Number: Effective Repository Date:2018-03-23 03/23/2018 KEISHA L Primary KEISHA L [place] [id number] Insurance:[place]OB: [facility] [id number] Repository [address]Ahc: (330) Number: [phone] () [id number] Date: [place], [place] [address]MG: 03/23/2018 Secondary NOT GIVENUNK [place] Insurance:SELF PAY [facility] Number: Effective Repository Date:2018-02-23 03/17/2018 KEISHA L Primary KEISHA L [place] [id number] Insurance:[place]: Community [facility] [id number] [place] Repository [address]Ywi: (330) Number: [phone] () [id number] Date: [place], [place] [id number]: 03/17/2018 Secondary NOT GIVENUNK [place] Insurance:SELF PAY [facility] Number: Effective Repository Date:2018-03-17 03/17/2018 KEISHA L Primary KEISHA L [place] [id number] Insurance:[place]: [facility] [id number]ICAREPolicy Repository [address]Iqt: (330) Number: [phone] () [id number] Date: [place], [place] [id number]: 03/17/2018 Secondary NOT GIVENUNK [place] Insurance:SELF PAY [facility] Number: Effective Repository Date:2018-03-17 03/17/2018 KEISHA L Primary KEISHA L [place] [id number] Insurance:[place]OB: [facility] CARE [id number] [facility] [place] Rep[place] 78[address]Gvv: (330) Number: [phone] () [id number] Date: [place], [place] [id number]: 03/17/2018 Secondary NOT GIVENUNK [place] Insurance:SELF PAY [facility] Number: Effective Repository Date:2018-03-17 03/17/2018 KEISHA L Primary KEISHA L [place] [id number] Insurance:[place]OB: [facility] [id number] MED[place]AREPolicy Rep[place] [address]Tfz: (330) Number: [phone] () [id number] Date: [place], [place] [id number]: 03/17/2018 Secondary NOT GIVENUNK [place] Insurance:SELF PAY [facility] Number: Effective Repository Date:2018-03-09 03/09/2018 KEISHA L Primary KEISHA L [place] [id number] Insurance:[place]OB: [facility] [id number] MEDICAREPolicy Rep[place] [address]Vna: (330) Number: [phone] () [id number] Date: [place], [place] [address]QZ: 03/09/2018 Secondary NOT GIVENUNK [place] Insurance:SELF PAY [facility] Number: Effective Repository Date:2018-03-09 03/09/2018 KEISHA L Primary KEISHA L [place] [id number] Insurance:[place]OB: [facility] [id number] [facility] Rep[facility] [address]Ucn: (330) Number: [phone] () [id number] Date: [place], [place] [address]KS: 03/09/2018 Secondary NOT GIVENUNK [place] Insurance:SELF PAY [facility] Number: Effective Repository Date:2018-03-09 2018 KEISHA L Primary KEISHA L [place] [id number] Insurance:[place]OB: [facility] [id number]ICAREPolicy Rep[place] 25[address]Lug: (330) Number: [phone] () [id number] Date: [place], [place] [address]AD: 2018 Secondary NOT GIVENUNK [place] Insurance:SELF PAY [facility] Number: Effective Repository Date:2018-02-23 02/24/2018 KEISHA L Primary KEISHA L [place] [id number] Insurance:[place]OB: Community [facility] [id number] MEDICAREPolicy Rep[place] [address]Bbx: (330) Number: [phone] () [id number] Date: [place], [place] [address]VV: 02/24/2018 Secondary NOT GIVENUNK [place] Insurance:SELF PAY [facility] Number: Effective Repository Date:2018-02-15 02/24/2018 KEISHA L Primary KEISHA L [place] [id number] Insurance:[place]OB: [facility] [id number] Hospital [place] MED[place] Rep[place] [address]Lxn: (330) Number: [phone] () [id number] Date: [place], [place] [id number]: 02/24/2018 Secondary NOT GIVENUNK [place] Insurance:SELF PAY [facility] Number: Effective Repository Date:2018-02-24 02/22/2018 KEISHA L Primary KEISHA L [place] [id number] Insurance:[place]: [facility] [id number] [facility] [place] MED[place]ARE[place] Rep[place] [address]Tra: (330) Number: [phone] () [id number] Date: [place], [place] [address]TP: 02/22/2018 Secondary NOT GIVENUNK [place] Insurance:SELF PAY [facility] Number: Effective Repository Date:2018-01-25 02/15/2018 KEISHA L Primary KEISHA L [place] [id number] Insurance:[place]: Community [facility] CARE [id number] [facility] [place] MED[place] Repository [address]Pqd: (330) Number: [phone] () [id number] Date: [place], [place] [address]QB: 02/15/2018 Secondary NOT GIVENUNK [place] Insurance:SELF PAY [facility] Number: Effective Repository Date:2018-02-15 02/10/2018 KEISHA L Primary KEISHA L [place] [id number] Insurance:[place]OB: [facility] [id number] [facility] [place] Rep[place] [address]Gpv: (330) Number: [phone] () [id number] Date: [place], [place] [address]LJ: 02/10/2018 Secondary NOT GIVENUNK [place] Insurance:SELF PAY [facility] Number: Effective Repository Date:2018-02-10 01/15/2018 KEISHA L Primary KEISHA L [place] [id number] Insurance:[place]OB: [facility] [id number] [facility] [place] Rep[place] 17[address]Ork: (330) Number: [phone] () [id number] Date: [place], [place] [address]FH: 01/15/2018 Secondary NOT GIVENUNK [place] Insurance:SELF PAY [facility] Number: Effective Repository Date:2017-12-23 12/31/2017 KEISHA L Primary KEISHA L [place] [id number] Insurance:[place]OB: [facility] [id number] [place] Rep[place] [address]Wmm: (330) Number: [phone] () [id number] Date: [place], [place] [address]AA: 12/31/2017 Secondary NOT GIVENUNK [place] Insurance:SELF PAY [facility] Number: Effective Repository Date:2017-12-22 12/03/2017 KEISHA L Primary KEISHA L [place] [id number] Insurance:[place]: Community [facility] [id number] [place]Polic Repository [address]Bve: (330) Number: [phone] () [id number] Date: [place], [place] [address]VB: 12/03/2017 Secondary NOT GIVENUNK [place] Insurance:SELF PAY [facility] Number: Effective Repository Date:2017-12-03 11/26/2017 KEISHA L Primary KEISHA L [place] [id number] Insurance:[place]OB: [facility] [id number] [facility] [place] MEDICAREPolicy Repository [address]Tdk: (330) Number: [phone] () [id number] Date: [place], [place] [address]HA: 11/26/2017 Secondary NOT GIVENUNK [place] Insurance:SELF PAY [facility] Number: Effective Repository Date:2017-11-03
== END 2018-10-11 13:00 | disposition home or self-care (01) ==
LOC: LAB 12:12
PROVIDERS: Family Provider Internal Medicine; PCP Internal Medicine; Referring Provider Internal Medicine Cardiovascular Disease; Visit Provider Internal Medicine Cardiovascular Disease
DX: I48.0 Paroxysmal atrial fibrillation (principal); Z79.01 Long term (current) use of anticoagulants
CPT/HCPCS: 36415; 85610

== ENCOUNTER 2018-11-18 19:39 | Emergency (ER) | payer MEDICARE, SELFPAY ==
[2018-11-18 19:41] VITALS: BP 156/69; PULSE 50; RESP 16; TEMP 37.1; O2SAT 97; BMI 30.7
--- NOTE | 2018-11-18 19:48 | RAD_ITS ---
STUDY: X-RAY - LEFT FOOT CLINICAL: Female, 73 years old. Fall, pain. TECHNIQUE: 3 view(s) of the foot. COMPARISON: None. FINDINGS: There is demineralization of the rear and midfoot bones. Normal visualized subtalar, talonavicular, calcaneocuboid, tarsal and tarsometatarsal articulations. Large heel spurs present. There is demineralization of the metatarsi. Normal metatarsophalangeal joint of the great toe. Normal tibial and fibular sesamoid bones. Normal interphalangeal joint of the great toe. Normal phalanges of the great toe. Normal second through fifth metatarsophalangeal joints. Normal interphalangeal joints and phalanges of the lesser toes. The soft tissue structures are unremarkable. RAD/Foot min 3 Views IMPRESSION: Diffuse demineralization with no evidence of acute fracture or dislocation. Electronically Signed: Esvin Nixon DO at 20:19 EST , Service support ,
--- NOTE | 2018-11-18 19:48 | RAD_ITS ---
STUDY: X-RAY - LEFT KNEE REASON FOR EXAM: Female, 73 years old. Fall, pain. TECHNIQUE: 3 view(s) of the knee. COMPARISON: None. FINDINGS: There is demineralization of the visualized distal femur. There is demineralization of the tibia and fibula. Normal proximal tibiofibular articulation. Normal medial femorotibial compartment. Normal lateral femorotibial compartment. Normal patellofemoral articulation. The soft tissue structures are unremarkable. RAD/Knee 3 Views IMPRESSION: Demineralization with no evidence of acute fracture or dislocation. Electronically Signed: Esvin Nixon DO at 20:20 EST , Service support ,
[2018-11-18] MEDS: Acetaminophen 500 MG Tablet 1000 MG PO (19:50)
--- NOTE | 2018-11-18 19:55 | RAD_ITS ---
STUDY: X-RAY - LEFT ANKLE REASON FOR EXAM: Female, 73 years old. Fall, pain. TECHNIQUE: 3 view(s) of the ankle. COMPARISON: None. FINDINGS: Diffuse demineralization is present. Normal visualized distal tibia and fibula. Normal medial and lateral malleoli. Normal tibiotalar articulation and ankle mortise. Normal visualized talus and calcaneus. Large heel spurs present. The visualized subtalar, talonavicular, calcaneocuboid and tarsal articulations are normal. There are atherosclerotic calcifications. RAD/Ankle min 3 Views IMPRESSION: Diffuse demineralization with no evidence of acute osseous process. Large heel spur. Electronically Signed: Esvin Nixon DO at 20:21 EST , Service support ,
--- NOTE | 2018-11-18 20:03 | ED.VISSUMM ---
- ER Visit Summary Date of Service: 11/18/18 Chief Complaint: Fall, left leg pain History of Present Illness: The patient is a 73 F who fell twice today. She slipped on the ice both times at the same spot. She injured her left leg. She has pain in the left knee, left ankle and left foot. Hurts to walk on it. She did nothing for it at home. Denies any head trauma or LOC. Physical Examination: Signs reviewed. Left leg exam reveals tenderness in the posterior calcaneal area on the left. She also has left ankle tenderness on the bilateral malleoli. There is no ecchymosis in these areas. Her left knee is also diffusely tender. She has painful range of motion of these joints. She has 2+ DP pulses. Test Results: X-rays of the left knee, left ankle and left foot all reveal demineralization without fractures Emergency Department Course and Treatment: The patient was medicated with Tylenol. There is no evidence of any fractures. Patient will ice and elevate and use NSAIDs for pain at home. She will follow-up with her PCP Treatment Plan: [] Disposition: Discharge Impression: Foot strain, left ankle strain, left knee contusion This note was generated with [employer] dictation software. It may contain incorrect words, spelling, and punctuation that were not noted in review of the chart prior to signing ED Disposition - Plan for ED Patient: Chief Complaint: Fall Referrals: Ro Reed MD [Primary Care Provider] -
--- NOTE | 2018-11-18 20:32 | ED.DEP ---
ED Disposition - Plan for ED Patient: Disposition: Home or Assisted Living Chief Complaint: Fall Instructions: ED Mechanical Fall Referrals: Ro Reed MD [Primary Care Provider] -
== END 2018-11-18 21:02 | disposition home or self-care (01) ==
PROVIDERS: Emergency Provider Emergency Medicine; Family Provider Internal Medicine; PCP Internal Medicine
DX: S96.912A Strain of unspecified muscle and tendon at ankle and foot level, left foot, initial encounter (principal); S80.02XA Contusion of left knee, initial encounter; W00.9XXA Unspecified fall due to ice and snow, initial encounter; Y93.9 Activity, unspecified; Y92.9 Unspecified place or not applicable; J45.909 Unspecified asthma, uncomplicated; Z79.01 Long term (current) use of anticoagulants; Z79.899 Other long term (current) drug therapy
CPT/HCPCS: 73562; 73610; 73630; 99284

== ENCOUNTER 2019-02-04 11:29 | Emergency (ER) | payer MEDICARE, SELFPAY ==
[2019-02-04 11:30] VITALS: BP 187/89; PULSE 57; RESP 19; TEMP 36.6; O2SAT 97; BMI 30.2
--- NOTE | 2019-02-04 11:33 | RAD_ITS ---
STUDY: X-RAY CHEST REASON FOR EXAM: Female, 73 years old. Chest pain. TECHNIQUE: PA and lateral views of the chest. COMPARISON: Comparison is made with prior study dated October 29, 2017. FINDINGS: EKG electrodes are seen. Hyperinflation. There is no demonstrated pleural abnormality. There is mild cardiac enlargement. Normal mediastinum and mahendra. Normal visualized pulmonary arteries. Normal visualized aortic arch and descending thoracic aorta. There are diffuse degenerative changes of the visualized thoracic spine. Normal visualized ribs, clavicles, and shoulders. There is no demonstrated abnormality of the visualized soft tissue structures of the upper abdomen. RAD/Chest PA and Lateral IMPRESSION: Hyperinflation. Mild cardiomegaly. Electronically Signed: Chance Pearl, at 12:48 EDT , Service support ,
--- NOTE | 2019-02-04 11:33 | EKG12_ITS ---
Test Reason : CP Blood Pressure : / mmHG Vent. Rate : 047 BPM Atrial Rate : 326 BPM P-R Int : 000 ms QRS Dur : 070 ms QT Int : 474 ms P-R-T Axes : 000 020 027 degrees QTc Int : 419 ms Atrial flutter with variable A-V block Low voltage QRS Cannot rule out Anteroseptal infarct , age undetermined Abnormal ECG Confirmed by SHERRON JIN ([id number]), offline editor YUMIKO BETTENCOURT ([id number]) on 02/07/2019 4:48:54 PM Referred By: KEIRA Confirmed By:SHERRON JIN
[2019-02-04 11:55] LABS: Absolute Neutrophil Count 1.8 X10^3/uL (2.0-7.7); Basophil# 0.01 X10^3/uL; Basophil% 0.3 % (0-1); Eosinophil# 0.07 X10^3/uL; Eosinophils% 1.8 % (0-5); Hematocrit 41.3 % (37-47); Hemoglobin 13.7 g/dl (12.0-15.0); Lymphocyte % 39.3 % (19-41); Mean Corp Hgb Conc 33.2 g/gl (32-36); Mean Corpuscular Hgb 31.2 pg (27.0-32.0); Mean Corpuscular Volume 94.1 fL (81-99); Mean Platelet Vol. 10.9 fl (6.2-12.0); Monocyte# 0.41 X10^3/uL; Monocyte% 10.7 % (0-10); Neutrophil # 1.82 X10^3/uL (2.7-7.7); Neutrophil % 47.6 % (47-70); Platelet Count 90 K/mm3 (150-450); RBC Distribution Width CV 12.8 % (11.6-14.6); Red Blood Count 4.39 M/mm3 (4.2-5.4); White Blood Count 3.8 K/mm3 (4.4-11.0)
[2019-02-04 11:56] LABS: POSITIVE COUNT NO; POSITIVE DIFFERENTIAL NO; POSITIVE MORPHOLOGY NO
--- NOTE | 2019-02-04 12:08 | CT_ITS ---
STUDY: CT BRAIN WITHOUT CONTRAST REASON FOR EXAM: Female, 73 years old. Unsteady gait. RADIATION DOSAGE (If Supplied By Facility): CTDIvol = ( 44.99 ) mGy, DLP = ( 748.30 ) mGycm TECHNIQUE: Transaxial CT imaging of the brain was performed without administration of intravenous contrast material. Individualized dose optimization techniques were used for this CT. COMPARISON: No relevant priors. FINDINGS: Small scalp hematoma overlying the left posterior occipital parietal bone. Normal calvarium. There is mild cerebral atrophy with widening of the extra-axial spaces and ventricular dilatation. Normal white matter tracts of the cerebral hemispheres. Normal basal ganglia and thalami. Normal brainstem. Normal cerebellum. There is no intracranial hemorrhage. There are no findings of an acute ischemic infarction. Atherosclerotic calcification of the cavernous portions of the internal carotid arteries bilaterally. Mucosal thickening of the sphenoid sinus. CT/Brain/Head without Contrast IMPRESSION: Chronic involutional changes of the brain. Electronically Signed: Chance Pearl, at 12:47 EDT , Service support ,
[2019-02-04 12:14] LABS: Anion Gap 5 (5-15); BUN 12 mg/dL (7-18); BUN/Creat Ratio 14.2 RATIO (10-20); Calcium,Total 8.8 mg/dL (8.5-10.1); Chloride 106 mmol/L (98-107); Creatinine, Serum 0.85 mg/dL (0.55-1.02); EST Glomerular Filtration Rate 70 mL/min (>60); Est Glom Filt Rate - Afr Amer 85 mL/min (>60); Estimated Creatinine Clearance 61.24 ml/min; Glucose 119 mg/dL (74-106); Potassium 3.4 mmol/L (3.5-5.1); Sodium Level 138 mmol/L (136-145)
[2019-02-04 14:30] VITALS: BP 151/71; PULSE 43; RESP 17; O2SAT 93
[2019-02-04 14:48] VITALS: PULSE 40
--- NOTE | 2019-02-04 14:55 | ED.VIS.GEN ---
History of Present Illness Chief Complaint: Chest Pain Informant: Patient, Family Onset: Weeks Timing: Continuous Quality: Sharp central chest pain Current Severity: Mild Maximum Severity: Moderate Worsened by: Nothing Relieved by: Nothing Associated Symptoms: Reports trouble ambulating Narrative: Patient is a 73-year-old woman with known coronary disease who presents with constant chest pain. She contacted Dr. Ko's office. They recommended contacting Dr. Reed's office. Dr. Reed's office staff recommended she come to the emergency department. She states this is not like her coronary pain. She had stents placed [address] Scott Ko. She has had constant pain for greater than a week. There is no associated symptoms or radiation. There is no GI symptoms. There is no urologic symptoms. She has no history of PE or DVT nor does she report any risk factors. Denies leg pain, swelling discoloration. 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 (8) RAMESH (obstructive sleep apnea) Status: Chronic (9) Other secondary pulmonary hypertension Status: Chronic Past Medical History - Allergies and Home Meds Allergies/Adverse Reactions: Allergies amoxicillin Allergy (Severe, Verified 02/04/19 11:30) Hives aspirin Allergy (Severe, Verified 02/04/19 11:30) Hives, SOB Sulfa (Sulfonamide Antibiotics) Allergy (Severe, Verified 02/04/19 11:30) Hives Primary Care Physician: Ro Reed MD [Primary Care Provider] - Prior records reviewed: Yes Surgical History: noncontributory Lives: Alone Smoking Status: Never smoker Alcohol: None Drugs: None - Family History Maternal Family History: Family History (Last Reviewed 10/11/18 @ 11:38 by Elvia Hall) Mother Diabetes Father CAD (coronary artery disease) Sister Lung cancer Son Kidney stone Family History: Reports: No pertinent history Review of Systems General: Denies: Chills, Fever, Sweats Eyes: Denies: Visual changes - bilaterally, Diplopia ENT: Denies: Rhinorrhea, Sore throat Cardiovascular: Reports: Chest pain. Denies: Palpitations, Heart racing Respiratory: Denies: Dyspnea, Cough, Dyspnea on exertion, Orthopnea, Paroxysmal nocturnal dyspnea Gastrointestinal: Denies: Abdominal pain, Nausea, Vomiting, Diarrhea, Melena, Hematochezia Genitourinary: Denies: Dysuria, Hematuria, Frequency Musculoskeletal: Denies: Myalgias, Arthralgias, Neck pain, Back pain, Swelling, Extremity Pain Skin: Denies: Rash, Wounds Neurological: Denies: Headache, Weakness, Numbness Psych: Denies: Depression, Anxiety Hematologic: Denies: Easy bruising, Easy bleeding Allergy: Denies: Uticaria, Swelling of the mouth Physical Exam Vital Signs/Narrative: Vital Signs Temp Pulse Resp BP Pulse Ox 02/04/19 14:30 43 L 17 151/71 H 93 02/04/19 11:30 98 F 57 L 19 H 187/89 H 97 Inital Vital Signs reviewed: Yes General: Well nourished, Well developed, No Acute Distress Head: Normocephalic, Atraumatic Eyes: Perrl, EOMI ENT: Moist mucous membranes, No rhinorrhea Neck: Supple, Nontender Cardiovascular: Regular rate, Regular rhythm, No murmurs Respiratory: No distress, CTA bilaterally, Chest nontender Abdomen: Soft, Nontender, Nondistended, Normal bowel sounds, No masses Rectal: Deferred Back: Nontender, Normal Inspection Extremities: Nontender, No edema Skin: Normal color, No rash Neurological: Alert, Oriented x3, Cranial nerves II-XII grossly intact, Normal Strength, Normal Sensation, Normal DTR, Normal Gait, - - Shanika-Hallpike test negative. Eye Nikita test negative. The hint test was negative. Psychological: Normal affect, Normal Mood Diagnostic/Tx/Re-eval Impressions Chest X-Ray 02/04/19 11:33 IMPRESSION: Hyperinflation. Mild cardiomegaly. Electronically Signed: Chance Pearl, at 12:48 EDT , Service support , Brain CT 02/04/19 12:08 IMPRESSION: Chronic involutional changes of the brain. Electronically Signed: Chance Pearl, at 12:47 EDT , Service support , 02/04/19 11:33 Chest PA and Lateral [RAD] Stat 02/04/19 12:08 CT Head [Brain/Head without Contrast] [CT] Stat Laboratory Results 02/04/19 02/04/19 11:40 11:40 WBC 3.8 L RBC 4.39 Hgb 13.7 Hct 41.3 MCV 94.1 MCH 31.2 MCHC 33.2 RDW 12.8 RDW Differential 43.0 Plt Count 90 L MPV 10.9 Immature Gran % (Auto) 0.300 Neut % (Auto) 47.6 Lymph % (Auto) 39.3 [place] % (Auto) 10.7 H Eos % (Auto) 1.8 Baso % (Auto) 0.3 Absolute Neuts (auto) 1.8 L Absolute Lymphs (auto) 1.50 Total Counted Not Reportable Sodium 138 Potassium 3.4 L Chloride 106 Carbon Dioxide 27.0 Anion Gap 5 BUN 12 Creatinine 0.85 Estim Creat Clear Calc 61.24 Est GFR (MDRD) Af Amer 85 Est GFR (MDRD) Non-Af 70 BUN/Creatinine Ratio 14.2 Glucose 119 H Calcium 8.8 Troponin I < 0.015 - Medical Decision Making Because patient has multiple risk factors coronary disease with known coronary disease EKG blood work was obtained. Cardiac etiology. With regards to the trouble ambulating her neuro exam is normal. Will obtain a CAT scan to see if there is evidence of a recent cerebellar infarct or bleed. Her workup was negative. Case was discussed with Dr. Scott Ko her fitness worker. He requested office staff set up an outpatient stress test. 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 Ko's office staff will contact to with time for outpatient stress test.
--- NOTE | 2019-02-04 15:03 | ED.DCSUM_ITS ---
History of Present Illness Chief Complaint: Chest Pain Informant: Patient, Family Onset: Weeks Timing: Continuous Quality: Sharp central chest pain Current Severity: Mild Maximum Severity: Moderate Worsened by: Nothing Relieved by: Nothing Associated Symptoms: Reports trouble ambulating Narrative: Patient is a 73-year-old woman with known coronary disease who presents with constant chest pain. She contacted Dr. Ko's office. They recommended contacting Dr. Reed's office. Dr. Reed's office staff recommended she come to the emergency department. She states this is not like her coronary pain. She had stents placed [address] Scott Ko. She has had constant pain for greater than a week. There is no associated symptoms or radiation. There is no GI symptoms. There is no urologic symptoms. She has no history of PE or DVT nor does she report any risk factors. Denies leg pain, swelling discoloration. 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 (8) RAMESH (obstructive sleep apnea) Status: Chronic (9) Other secondary pulmonary hypertension Status: Chronic Past Medical History - Allergies and Home Meds Allergies/Adverse Reactions: Allergies amoxicillin Allergy (Severe, Verified 02/04/19 11:30) Hives aspirin Allergy (Severe, Verified 02/04/19 11:30) Hives, SOB Sulfa (Sulfonamide Antibiotics) Allergy (Severe, Verified 02/04/19 11:30) Hives Primary Care Physician: Ro Reed MD [Primary Care Provider] - Prior records reviewed: Yes Surgical History: noncontributory Lives: Alone Smoking Status: Never smoker Alcohol: None Drugs: None - Family History Maternal Family History: Family History (Last Reviewed 10/11/18 @ 11:38 by Elvia Hall) Mother Diabetes Father CAD (coronary artery disease) Sister Lung cancer Son Kidney stone Family History: Reports: No pertinent history Review of Systems General: Denies: Chills, Fever, Sweats Eyes: Denies: Visual changes - bilaterally, Diplopia ENT: Denies: Rhinorrhea, Sore throat Cardiovascular: Reports: Chest pain. Denies: Palpitations, Heart racing Respiratory: Denies: Dyspnea, Cough, Dyspnea on exertion, Orthopnea, Paroxysmal nocturnal dyspnea Gastrointestinal: Denies: Abdominal pain, Nausea, Vomiting, Diarrhea, Melena, Hematochezia Genitourinary: Denies: Dysuria, Hematuria, Frequency Musculoskeletal: Denies: Myalgias, Arthralgias, Neck pain, Back pain, Swelling, Extremity Pain Skin: Denies: Rash, Wounds Neurological: Denies: Headache, Weakness, Numbness Psych: Denies: Depression, Anxiety Hematologic: Denies: Easy bruising, Easy bleeding Allergy: Denies: Uticaria, Swelling of the mouth Physical Exam Vital Signs/Narrative: Vital Signs Temp Pulse Resp BP Pulse Ox 02/04/19 14:30 43 L 17 151/71 H 93 02/04/19 11:30 98 F 57 L 19 H 187/89 H 97 Inital Vital Signs reviewed: Yes General: Well nourished, Well developed, No Acute Distress Head: Normocephalic, Atraumatic Eyes: Perrl, EOMI ENT: Moist mucous membranes, No rhinorrhea Neck: Supple, Nontender Cardiovascular: Regular rate, Regular rhythm, No murmurs Respiratory: No distress, CTA bilaterally, Chest nontender Abdomen: Soft, Nontender, Nondistended, Normal bowel sounds, No masses Rectal: Deferred Back: Nontender, Normal Inspection Extremities: Nontender, No edema Skin: Normal color, No rash Neurological: Alert, Oriented x3, Cranial nerves II-XII grossly intact, Normal Strength, Normal Sensation, Normal DTR, Normal Gait, - - Shanika-Hallpike test negative. Eye Nikita test negative. The hint test was negative. Psychological: Normal affect, Normal Mood Diagnostic/Tx/Re-eval Impressions Chest X-Ray 02/04/19 11:33 IMPRESSION: Hyperinflation. Mild cardiomegaly. Electronically Signed: Chance Pearl, at 12:48 EDT , Service support , Brain CT 02/04/19 12:08 IMPRESSION: Chronic involutional changes of the brain. Electronically Signed: Chance Pearl, at 12:47 EDT , Service support , 02/04/19 11:33 Chest PA and Lateral [RAD] Stat 02/04/19 12:08 CT Head [Brain/Head without Contrast] [CT] Stat Laboratory Results 02/04/19 02/04/19 11:40 11:40 WBC 3.8 L RBC 4.39 Hgb 13.7 Hct 41.3 MCV 94.1 MCH 31.2 MCHC 33.2 RDW 12.8 RDW Differential 43.0 Plt Count 90 L MPV 10.9 Immature Gran % (Auto) 0.300 Neut % (Auto) 47.6 Lymph % (Auto) 39.3 [place] % (Auto) 10.7 H Eos % (Auto) 1.8 Baso % (Auto) 0.3 Absolute Neuts (auto) 1.8 L Absolute Lymphs (auto) 1.50 Total Counted Not Reportable Sodium 138 Potassium 3.4 L Chloride 106 Carbon Dioxide 27.0 Anion Gap 5 BUN 12 Creatinine 0.85 Estim Creat Clear Calc 61.24 Est GFR (MDRD) Af Amer 85 Est GFR (MDRD) Non-Af 70 BUN/Creatinine Ratio 14.2 Glucose 119 H Calcium 8.8 Troponin I < 0.015 - Medical Decision Making Because patient has multiple risk factors coronary disease with known coronary disease EKG blood work was obtained. Cardiac etiology. With regards to the tr ouble ambulating her neuro exam is normal. Will obtain a CAT scan to see if there is evidence of a recent cerebellar infarct or bleed. Her workup was negative. Case was discussed with Dr. Scott Ko her loader helper. He requested office staff set up an outpatient stress test. 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 Ko's office staff will contact to with time for outpatient stress test.
[2019-02-04 15:13] VITALS: BP 143/68; PULSE 45; RESP 13; O2SAT 97
== END 2019-02-04 15:13 | disposition home or self-care (01) ==
PROVIDERS: Emergency Provider Emergency Medicine; Family Provider Internal Medicine; PCP Internal Medicine
DX: R07.9 Chest pain, unspecified (principal); R26.2 Difficulty in walking, not elsewhere classified; E11.9 Type 2 diabetes mellitus without complications; I10 Essential (primary) hypertension; E78.5 Hyperlipidemia, unspecified; I48.2 Chronic atrial fibrillation; I27.29 Other secondary pulmonary hypertension; Z79.84 Long term (current) use of oral hypoglycemic drugs; Z79.01 Long term (current) use of anticoagulants; Z79.899 Other long term (current) drug therapy
CPT/HCPCS: 70450; 71046; 80048; 84484; 85025; 93005; 99284; A4216

== ENCOUNTER → 2019-02-18 07:52 | Outpatient (CLI) | payer MEDICARE, SELFPAY ==
[2019-02-04 11:30] VITALS: BMI 30.2
--- NOTE | 2019-02-18 12:00 | PFT ---
INTRODUCTION: The patient is a 73-year-old female that presents for pulmonary function testing secondary to a diagnosis of asthma. Respiratory therapy reports good patient effort. Bronchodilators were used during testing. INTERPRETATION: Forced expiration spirometry demonstrates no evidence of a large airways obstructive ventilatory defect. There was a significant response to aerosolized bronchodilators. Spirograms are of good quality and plateau normally. Body plethysmography was performed and reveals a decreased TLC to 3.8 L, 68% of predicted, indicative of a moderate restrictive ventilatory defect. The remainder of the lung volumes are symmetrically reduced. Diffusing capacity by single breath CO is reduced at 54% of predicted. When compared to prior pulmonary function studies from 2017, there has been a 17% reduction in FEV1. IMPRESSION: Moderate restrictive ventilatory impairment with symmetric reduction in diffusing capacity. Significant bronchodilator response was also noted.
--- NOTE | 2019-02-18 12:03 | PFT_ITS ---
INTRODUCTION: The patient is a 73-year-old female that presents for pulmonary function testing secondary to a diagnosis of asthma. Respiratory therapy reports good patient effort. Bronchodilators were used during testing. INTERPRETATION: Forced expiration spirometry demonstrates no evidence of a large airways obstructive ventilatory defect. There was a significant response to aerosolized bronchodilators. Spirograms are of good quality and plateau normally. Body plethysmography was performed and reveals a decreased TLC to 3.8 L, 68% of predicted, indicative of a moderate restrictive ventilatory defect. The remainder of the lung volumes are symmetrically reduced. Diffusing capacity by single breath CO is reduced at 54% of predicted. [facility], there has been a 17% reduction in FEV1. IMPRESSION: Moderate restrictive ventilatory impairment with symmetric reduction in diffusing capacity. Significant bronchodilator response was also noted.
== END ==
PROVIDERS: Family Provider Internal Medicine; PCP Internal Medicine; Referring Provider Internal Medicine Critical Care Medicine; Visit Provider Internal Medicine Critical Care Medicine
DX: J45.20 Mild intermittent asthma, uncomplicated (principal)
CPT/HCPCS: 94060; 94726; 94729

== ENCOUNTER → 2019-02-21 08:39 | Outpatient (CLI) | payer MEDICARE, SELFPAY ==
[2019-02-04 11:30] VITALS: BMI 30.2
[2019-02-21 09:00] VITALS: PULSE 55; PULSE 58; PULSE 60; PULSE 65; PULSE 67; PULSE 71; PULSE 73; O2SAT 96; O2SAT 97; O2SAT 98; O2SAT 99
--- NOTE | 2019-02-21 12:28 | PCM.PSN.6M ---
PSN 6 Minute Walk Test - 6 Minute Walk Test 6 Minute Walk Test: 6 Minute Walk Test PSN:6-Minute Walk Test Start: 02/21/19 09:26 Freq: Status: Active Protocol: [id number] Document 02/21/19 09:00 EW (Rec: 02/21/19 09:30 EW [id number]) 6 Minute Walk Test Date Performed 02/21/19 Time Performed 09:00 Height 5 ft 8 in Weight: 90.265 kg Weight in Pounds 199.[address]: Leeanna Mascorro Assistive device used: None Pre-test Oxygen Delivery Method Room Air Pulse Ox (%) 98 Pulse Rate (60-100 beats/min) 55 L Dyspnea Anthony Scale (0-10) 2 Exertion Anthony Scale (6-20) 8 1st minute Oxygen Delivery Method Room Air Pulse Ox (%) 98 Pulse Rate (60-100 beats/min) 58 L 2nd minute Oxygen Delivery Method Room Air Pulse Ox (%) 96 Pulse Rate (60-100 beats/min) 65 3rd minute Oxygen Delivery Method Room Air Pulse Ox (%) 97 Pulse Rate (60-100 beats/min) 71 4th minute Oxygen Delivery Method Room Air Pulse Ox (%) 99 Pulse Rate (60-100 beats/min) 73 5th minute Oxygen Delivery Method Room Air Pulse Ox (%) 97 Pulse Rate (60-100 beats/min) 67 6th minute Oxygen Delivery Method Room Air Pulse Ox (%) 97 Pulse Rate (60-100 beats/min) 65 Post-test Oxygen Delivery Method Room Air Pulse Ox (%) 97 Pulse Rate (60-100 beats/min) 60 Dyspnea Anthony Scale (0-10) 3 Exertion Anthony Scale (6-20) 11 Full Laps Walked 15 Partial Lap, Number of Tiles Walked 19 Total Distance Walked (ft) 904 - Interpretation Interpretation: The patient was able to ambulate 904 feet over the course of 6 minutes on room air with no assistive devices or breaks. The patient did not experience any significant tachycardia or desaturation during testing. These findings are consistent with a musculoskeletal limitation exercise tolerance. - Recommendations Recommendations: No supplemental oxygen is indicated at this time.
== END ==
PROVIDERS: Family Provider Internal Medicine; PCP Internal Medicine; Referring Provider Internal Medicine Critical Care Medicine; Visit Provider Internal Medicine Critical Care Medicine
DX: J45.20 Mild intermittent asthma, uncomplicated (principal)
CPT/HCPCS: 94618

== ENCOUNTER → 2019-02-24 10:04 | Outpatient (CLI) | payer MEDICARE, SELFPAY ==
[2019-02-24 09:30] VITALS: BMI 30.5
[2019-03-05 12:06] LABS: Aspirgillus flavus Negative (Neg:<1:1); Aspirgillus fumigatus Negative (Neg:<1:1); Aspirgillus niger Negative (Neg:<1:1)
[2019-03-07 03:05] LABS: Alternaria tenuis <0.10 kU/L (Class 0); Ash, White <0.10 kU/L (Class 0); Aspergillus fumigatus <0.10 kU/L (Class 0); Bermuda Grass <0.10 kU/L (Class 0); Birch <0.10 kU/L (Class 0); Black Walnut <0.10 kU/L (Class 0); Cat Hair / Dander,Stand 6.33 kU/L (Class IV); Cedar, Mountain <0.10 kU/L (Class 0); Cladosporium herbarum <0.10 kU/L (Class 0); Cockroach, American <0.10 kU/L (Class 0); Cottonwood <0.10 kU/L (Class 0); D farinae Mite 0.19 kU/L (Class 0/I); D pteronyssinus 0.12 kU/L (Class 0/I); Elm, American White <0.10 kU/L (Class 0); Immunoglobulin E 1026 IU/mL (6-495); Maple/Box Elder <0.10 kU/L (Class 0); Mulberry, White <0.10 kU/L (Class 0); Oak, White <0.10 kU/L (Class 0); Pecan <0.10 kU/L (Class 0); Penicillium Notatum <0.10 kU/L (Class 0); Pigweed, Rough <0.10 kU/L (Class 0); Ragweed, Short/Common 4.95 kU/L (Class IV); Russian Thistle 0.16 kU/L (Class 0/I); Sheep Sorrel <0.10 kU/L (Class 0); Sycamore, American <0.10 kU/L (Class 0); Timothy Grass <0.10 kU/L (Class 0)
[2019-03-07 13:08] LABS: Mouse Urine 2.32 kU/L (Class III)
[2019-03-07 13:25] LABS: Immunoglobulin E 954 IU/mL (6-495)
== END ==
PROVIDERS: Family Provider Internal Medicine; PCP Internal Medicine; Referring Provider Internal Medicine Critical Care Medicine; Visit Provider Internal Medicine Critical Care Medicine
DX: J45.909 Unspecified asthma, uncomplicated (principal)
CPT/HCPCS: 36415; 82785; 86003; 86606

== ENCOUNTER 2019-03-22 08:36 | Outpatient (RCR) | payer MEDICARE, SELFPAY ==
[2019-02-24 09:30] VITALS: BMI 30.5
[2019-03-08 10:46] LABS: International Normalized Ratio 3.9
[2019-03-08 11:41] LABS: Prothrombin Time (Protime)PT. 38.9 SECONDS (11.7-14.9)
[2019-03-15 12:06] LABS: International Normalized Ratio 1.6
[2019-03-22 10:11] LABS: International Normalized Ratio 2.4; Prothrombin Time (Protime)PT. 26.3 SECONDS (11.7-14.9)
== END 2019-03-22 10:00 | disposition home or self-care (01) ==
LOC: LAB 08:36
PROVIDERS: Family Provider Internal Medicine; PCP Internal Medicine; Referring Provider Internal Medicine Cardiovascular Disease; Visit Provider Internal Medicine Cardiovascular Disease
DX: I48.92 Unspecified atrial flutter (principal); Z79.01 Long term (current) use of anticoagulants
CPT/HCPCS: 36415; 85610

== ENCOUNTER 2019-04-20 09:02 | Outpatient (RCR) | payer MEDICARE, SELFPAY ==
[2019-02-24 09:30] VITALS: BMI 30.5
[2019-03-29 10:57] LABS: International Normalized Ratio 2.5; Prothrombin Time (Protime)PT. 27.1 SECONDS (11.7-14.9)
[2019-04-06 10:50] LABS: International Normalized Ratio 1.8; Prothrombin Time (Protime)PT. 20.9 SECONDS (11.7-14.9)
[2019-04-13 09:44] LABS: Prothrombin Time (Protime)PT. 22.5 SECONDS (11.7-14.9)
[2019-04-20 10:07] LABS: International Normalized Ratio 1.8; Prothrombin Time (Protime)PT. 21.1 SECONDS (11.7-14.9)
== END 2019-04-20 10:00 | disposition home or self-care (01) ==
LOC: LAB 09:02
PROVIDERS: Family Provider Internal Medicine; PCP Internal Medicine; Referring Provider Internal Medicine Cardiovascular Disease; Visit Provider Internal Medicine Cardiovascular Disease
DX: I48.92 Unspecified atrial flutter (principal); Z79.01 Long term (current) use of anticoagulants
CPT/HCPCS: 36415; 85610

== ENCOUNTER 2019-05-20 09:08 | Outpatient (RCR) | payer MEDICARE, SELFPAY ==
[2019-04-07 09:08] VITALS: BMI 30.5
[2019-04-29 10:59] LABS: International Normalized Ratio 2.7; Prothrombin Time (Protime)PT. 28.7 SECONDS (11.7-14.9)
[2019-05-13 09:22] LABS: International Normalized Ratio 3.3; Prothrombin Time (Protime)PT. 33.9 SECONDS (11.7-14.9)
[2019-05-20 09:57] LABS: International Normalized Ratio 3.1; Prothrombin Time (Protime)PT. 32.1 SECONDS (11.7-14.9)
== END 2019-05-20 10:00 | disposition home or self-care (01) ==
LOC: LAB 09:08
PROVIDERS: Family Provider Internal Medicine; PCP Internal Medicine; Referring Provider Internal Medicine Cardiovascular Disease; Visit Provider Internal Medicine Cardiovascular Disease
DX: I48.92 Unspecified atrial flutter (principal); Z79.01 Long term (current) use of anticoagulants
CPT/HCPCS: 36415; 85610

== ENCOUNTER 2019-05-28 09:39 | Emergency (ER) | payer MEDICARE, SELFPAY ==
[2019-05-23 12:57] VITALS: BMI 29.8
[2019-05-28 09:42] VITALS: BP 160/88; PULSE 87; RESP 14; TEMP 36.3; O2SAT 97; BMI 31.6
--- NOTE | 2019-05-28 10:01 | ED.VIS.GEN ---
History of Present Illness Chief Complaint: Laceration Detail of Chief Complaint: Left arm skin avulsion Informant: Patient Onset: Days - 3 days ago Narrative: Patient reports being scratched by her dog 3 days ago. She is 4 x 2 cm area of skin avulsion to the left forearm. She is currently on Coumadin and wound is continued to ooze since that time. INR was last checked 8 days ago and was 3.1 that time. 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 Freed 04/01/19 Past Medical History - Allergies and Home Meds Allergies/Adverse Reactions: Allergies amoxicillin Allergy (Severe, Verified 05/28/19 09:42) Hives aspirin Allergy (Severe, Verified 05/28/19 09:42) Hives, SOB Sulfa (Sulfonamide Antibiotics) Allergy (Severe, Verified 05/28/19 09:42) Hives Primary Care Physician: Ro Reed MD [Primary Care Provider] - Doctors: Dr. Ko Prior records reviewed: Yes Past Medical History: - - Reviewed Surgical History: noncontributory Smoking Status: Never smoker - Family History Maternal Family History: Family History (Last Reviewed 05/16/19 @ 11:20 by Elvia Hall) Mother Diabetes Father CAD (coronary artery disease) Sister Lung cancer Son Kidney stone Family History: Reports: No pertinent history Review of Systems General: Denies: Chills, Fever Eyes: Denies: Visual changes - bilaterally ENT: Denies: Bilateral ear pain Cardiovascular: Denies: Chest pain Respiratory: Denies: Dyspnea, Cough Gastrointestinal: Denies: Abdominal pain, Nausea, Vomiting Musculoskeletal: Reports: Extremity Pain Skin: Reports: Wounds Neurological: Denies: Headache, Parasthesia, Numbness Hematologic: Reports: Easy bleeding Allergy: Denies: Uticaria Physical Exam Vital Signs/Narrative: Vital Signs Temp Pulse Resp BP Pulse Ox 05/28/19 09:42 97.3 F L 87 14 160/88 H 97 General: Well nourished, Well developed Head: Normocephalic ENT: Moist mucous membranes Cardiovascular: Regular rate, Regular rhythm Respiratory: No distress, CTA bilaterally Abdomen: Soft Skin: - - 4 x 2 cm area of skin avulsion to the dorsal left distal forearm. Slight bleeding is noted. No sign of infection. Neurological: Alert, Oriented x3, Normal Strength, Normal Sensation Psychological: Normal affect Diagnostic/Tx/Re-eval Laboratory Tests 05/28/19 Range/Units 10:20 PT 27.8 H (11.7-14.9) SECONDS INR 2.6 - Medical Decision Making Left forearm wound was cleansed and Surgifoam was placed. On repeat check she does have some mild bleeding through the Surgifoam layer only. This is reinforced and rewrapped. INR returns at 2.6. Patient is instructed on wound care. ED Disposition - Plan for ED Patient: Disposition: Home or Assisted Living Diagnosis: Skin avulsion Instructions: Skin Avulsion Referrals: Ro Reed MD [Primary Care Provider] - 5-7 Days
[2019-05-28 10:39] LABS: International Normalized Ratio 2.6; Prothrombin Time (Protime)PT. 27.8 SECONDS (11.7-14.9)
== END 2019-05-28 11:08 | disposition home or self-care (01) ==
PROVIDERS: Emergency Provider Emergency Medicine; Family Provider Internal Medicine; PCP Internal Medicine
DX: S51.802A Unspecified open wound of left forearm, initial encounter (principal); W54.8XXA Other contact with dog, initial encounter; Y93.9 Activity, unspecified; Y92.9 Unspecified place or not applicable; I48.91 Unspecified atrial fibrillation; I48.92 Unspecified atrial flutter; I10 Essential (primary) hypertension; E11.9 Type 2 diabetes mellitus without complications; E78.5 Hyperlipidemia, unspecified; J45.909 Unspecified asthma, uncomplicated; Z79.01 Long term (current) use of anticoagulants; Z79.84 Long term (current) use of oral hypoglycemic drugs; Z79.899 Other long term (current) drug therapy
CPT/HCPCS: 36415; 85610; 99282

== ENCOUNTER → 2019-06-06 10:35 | Outpatient (CLI) | payer MEDICARE, SELFPAY ==
[2019-05-23 12:57] VITALS: BMI 29.8
[2019-05-28 09:42] VITALS: BMI 31.6
--- NOTE | 2019-06-06 10:37 | ECHOD_ITS ---
Reason For Study: PHTN Procedure This was a 2D Doppler, Color Flow transthoracic echocardiogram. Exam performed in department. Left Ventricle Normal size and thickness. The estimated ejection fraction is 65 %. Stage 2 diastolic dysfunction. No regional wall motion abnormalities noted. Right Ventricle Normal size and thickness. Normal systolic function. Atria The left atrium is moderately enlarged. Normal right atrium. Normal atrial septum. Mitral Valve The mitral valve is structurally normal. No prolapse or stenosis seen. Tricuspid Valve Normal tricuspid valve. Trivial tricuspid valve insufficiency. Right ventricular systolic pressure estimated to be 29 mmHg. Aortic Valve Trisinus/trileaflet aortic valve. Mild focal aortic valve thickening. There is no aortic stenosis. Pulmonic Valve Normal pulmonic valve. Trivial pulmonic valve insufficiency. Great Vessels Normal aortic root. Normal arch. Normal inferior vena cava. Inferior vena cava collapse with sniff. Pericardium/Pleural No pericardial effusion. MMode/2D Measurements & Calculations LVIDd: 4.4 cm IVSd: 1.1 cm Ao root diam: 3.0 cm LVIDs: 2.6 cm LVPWd: 1.0 cm RVDd: 3.0 cm FS: 41.3 % LAV(MOD-bp): 64.3 ml LA A4 area: 23.7 cm2 LA dimension(2D): 3.5 cm LAV(MOD-bp) Indexed: 33.3 ml/m2 LAV(MOD-sp2): 50.7 ml LAV(MOD-sp4): 73.2 ml RA A4 area: 17.0 cm2 Doppler Measurements & Calculations MV E max aniket: 86.1 cm/sec Lat Peak E' Aniket: 9.4 cm/sec Med Peak E' Aniket: 9.1 cm/sec MV A max aniket: 51.8 cm/sec E/E' lat: 9.1 E/E' med: 9.5 MV E/A: 1.7 Ao V2 max: 135.7 cm/sec LV V1 max: 112.1 cm/sec PA V2 max: 112.5 cm/sec Ao max P.4 mmHg LV V1 max P.0 mmHg TR max aniket: 244.4 cm/sec TR max P.0 mmHg Interpretation Summary The estimated ejection fraction is 65 %. Stage 2 diastolic dysfunction. The left atrium is moderately enlarged. Trivial tricuspid valve insufficiency. Right ventricular systolic pressure estimated to be 29 mmHg. Compared to echo report dated 02/24/2018, LV Function has remained the same and RVSP has improved from 48 to 29 mm Hg. Pt now appears to be in NSR. Ordering Physician: Grant Ko Referring Physician: Ro Reed M.D. Performed By: Kayley Mansfield RDCS
== END ==
PROVIDERS: Family Provider Internal Medicine; PCP Internal Medicine; Referring Provider Internal Medicine Cardiovascular Disease; Visit Provider Internal Medicine Cardiovascular Disease
DX: I27.20 Pulmonary hypertension, unspecified (principal); Z98.890 Other specified postprocedural states; Z86.79 Personal history of other diseases of the circulatory system
CPT/HCPCS: 93306

== ENCOUNTER 2019-06-24 11:08 | Outpatient (RCR) | payer MEDICARE, SELFPAY ==
[2019-05-23 12:57] VITALS: BMI 29.8
[2019-06-10 10:42] LABS: International Normalized Ratio 2.4; Prothrombin Time (Protime)PT. 26.4 SECONDS (11.7-14.9)
[2019-06-24 11:48] LABS: International Normalized Ratio 2.3; Prothrombin Time (Protime)PT. 25.6 SECONDS (11.7-14.9)
== END 2019-06-24 12:00 | disposition home or self-care (01) ==
LOC: LAB 11:08
PROVIDERS: Family Provider Internal Medicine; PCP Internal Medicine; Referring Provider Internal Medicine Cardiovascular Disease; Visit Provider Internal Medicine Cardiovascular Disease
DX: I48.92 Unspecified atrial flutter (principal); Z79.01 Long term (current) use of anticoagulants
CPT/HCPCS: 36415; 85610

== ENCOUNTER 2019-07-10 08:16 | Emergency (ER) | payer MEDICARE, SELFPAY ==
[2019-07-10 08:17] VITALS: BP 182/81; PULSE 63; RESP 18; TEMP 36.7; O2SAT 99; BMI 31.8
--- NOTE | 2019-07-10 08:34 | ED.DCSUM_ITS ---
History of Present Illness Chief Complaint: Lower Extremity Injury Informant: Patient Onset: Yesterday Current Severity: Mild Narrative: Complains of left hip pain began yesterday night for unspecified reasons, she did not have any injuries burning sensation that begins in the lateral part of the left hip and radiates to her knee she denies back pain all she has back ailments, she is had no trauma no numbness weakness paresthesias otherwise, she is able to walk go about her normal activities but complains of pain in this area, she does not have history of arthritis, she is having no abdominal pain no bowel bladder habits no fever cough chest pain no other joint complaints she does recently have pacemaker inserted at [facility] left [facility] related to management A. fib that was uncomplicated she has no fever cough chest pain abdominal pain only the left hip pain as above she is trying to find a position of comfort in the bed Past Medical History - Allergies and Home Meds Allergies/Adverse Reactions: Allergies amoxicillin Allergy (Severe, Verified 07/10/19 08:17) Hives aspirin Allergy (Severe, Verified 07/10/19 08:17) Hives, SOB Sulfa (Sulfonamide Antibiotics) Allergy (Severe, Verified 07/10/19 08:17) Hives Primary Care Physician: Ro Reed MD [Primary Care Provider] - Past Medical History: - - Back ailment, recent pacemaker history of A. fib Surgical History: noncontributory Smoking Status: Never smoker - Family History Maternal Family History: Family History (Last Reviewed 05/16/19 @ 11:20 by Elvia Hall) Mother Diabetes Father CAD (coronary artery disease) Sister Lung cancer Son Kidney stone Family History: Reports: No pertinent history Review of Systems General: Denies: Chills, Fever, Sweats Eyes: Denies: Visual changes - bilaterally, Diplopia ENT: Denies: Rhinorrhea, Sore throat Cardiovascular: Denies: Chest pain, Palpitations Respiratory: Denies: Dyspnea, Cough, Dyspnea on exertion Gastrointestinal: Denies: Abdominal pain, Nausea, Vomiting, Diarrhea, Melena, Hematochezia Genitourinary: Denies: Dysuria, Hematuria, Frequency Musculoskeletal: Reports: Extremity Pain, - - Pain to the left hip as above. Denies: Back pain Skin: Denies: Rash, Wounds Neurological: Denies: Headache, Weakness, Numbness Physical Exam Vital Signs/Narrative: Vital Signs Temp Pulse Resp BP Pulse Ox 07/10/19 08:17 98.0 F 63 18 182/81 H 99 General: Well nourished, Well developed, No Acute Distress Head: Normocephalic, Atraumatic Eyes: Perrl, EOMI ENT: Moist mucous membranes, No rhinorrhea Neck: Supple, Nontender Cardiovascular: Regular rate, Regular rhythm, No murmurs Respiratory: No distress, CTA bilaterally, Chest nontender Abdomen: Soft, Nontender, Nondistended, Normal bowel sounds, - - Her abdominal exam is entirely unremarkable there is no pain mass fullness or any complaints Back: Nontender, Normal Inspection Extremities: Nontender, No edema, - - Is tenderness to palpation over the left hip greater trochanteric region, she is tender with range of motion to the hip slightly, the thigh is unremarkable, there is no instability, the knee is unrema rkable the tib-fib ankle and foot are unremarkable neurovascular function is normal, she is able to stand and walk but has discomfort when she does, her back shows no obvious discomfort neurologically her exam is normal Skin: Normal color, No rash Neurological: Alert, Oriented x3, Cranial nerves II-XII grossly intact, Normal Strength, Normal Sensation Psychological: Normal affect, Normal Mood Diagnostic/Tx/Re-eval - Medical Decision Making Differential is rather extensive it certainly could be related to hip condition lumbar back condition other processes at this time she medicated x-rays obtained of the hip and the lumbar back Per radiology the hip x-ray, lumbar spine x-ray show some DJD nothing acute, reevaluation she is medicated she feels better explained test results to her explained that given the hip pain she has is appropriate that she follow-up with orthopedics she is comfort with this plan, she will use walking devices cane walker, [place] as a rescue medicine if Tylenol is ineffective and follow-up with her outpatient providers orthopedics and return for change in symptoms Home stable Impression Final Left hip pain ED Disposition - Plan for ED Patient: Diagnosis: Left hip pain Instructions: Hip Strain Prescriptions: Hydrocodone Bitart/Apap 5-325 [[place] 5MG-325MG] 1 tab PO Q4H PRN PRN 2 Days #10 tab PRN Reason: Pain Prescription Printed Referrals: Ro Reed MD [Primary Care Provider] -
[2019-07-10] MEDS: morphine 8 MG/ML Syringe IM (08:40)
[2019-07-10] MEDS: Ondansetron ODT 4 MG Tablet PO (08:40)
--- NOTE | 2019-07-10 08:46 | RAD_ITS ---
STUDY: X-RAY - LUMBAR SPINE REASON FOR EXAM: Female, 74 years old. Pain in the left hip and lower back TECHNIQUE: 3 view(s) of the lumbar spine were obtained. COMPARISON: Pelvis same date FINDINGS: The last rib-bearing vertebral body has small ribs bilaterally, calculus T12. Transitional lumbosacral vertebral anatomy with sacralization of L5 as contrast from the last rib-bearing vertebral body. Mild disc narrowing at L4-L5. No other apparent degenerative disc disease. Mild to moderate low lumbar facet arthropathy/hypertrophy. No significant scoliosis. Preserved lordosis. Osteopenia. No acute intra-abdominal process is evident. RAD/Lumbar Spine 2 or 3 Views IMPRESSION: Transitional lumbosacral vertebral anatomy. Mild low lumbar spondylosis. Electronically Signed: Tomás Leung MD at 9:41 EDT Tel , Service support ,
--- NOTE | 2019-07-10 08:46 | RAD_ITS ---
STUDY: X-RAY - PELVIS AND LEFT HIP REASON FOR EXAM: Female, 74 years old. Hip pain on the left and lower back pain TECHNIQUE: 3 views of the pelvis and hip. COMPARISON: None. FINDINGS: Mild low lumbar degenerative disc disease. Osteopenia. Mild symmetric degenerative features of the SI joints. Each hip joint demonstrates minimal acetabular superior margin osteophytic spurring, no significant joint space narrowing, no significant degenerative features of the articular surfaces, normal periarticular soft tissues. No fracture. Iliac crests and pubic rami unremarkable. RAD/HIP, UNI W/ Pelvis 2-3 Views IMPRESSION: No evidence of acute hip injury. There are only very minimal degenerative features of the right and left hip joints. Electronically Signed: Tomás Leung MD at 9:40 EDT Tel , Service support ,
[2019-07-10 10:50] VITALS: BP 164/74; PULSE 80; O2SAT 94
== END 2019-07-10 11:28 | disposition home or self-care (01) ==
PROVIDERS: Emergency Provider Emergency Medicine; Family Provider Internal Medicine; PCP Internal Medicine
DX: M25.552 Pain in left hip (principal); I48.91 Unspecified atrial fibrillation; Z95.0 Presence of cardiac pacemaker; Z79.01 Long term (current) use of anticoagulants; Z79.899 Other long term (current) drug therapy
CPT/HCPCS: 72100; 73502; 96372; 99282

== ENCOUNTER → 2019-07-21 09:53 | Outpatient (CLI) | payer MEDICARE, SELFPAY ==
[2019-07-10 08:17] VITALS: BMI 31.8
--- NOTE | 2019-07-21 10:00 | MRI_ITS ---
STUDY: MRI LUMBAR SPINE WITHOUT CONTRAST REASON FOR EXAM: Female, 74 years old. Low back pain. Left leg pain. Fall. TECHNIQUE: Standardized fat and water weighted pulse sequences were obtained in the sagittal and axial planes. COMPARISON: X-ray dated July 10, 2019. FINDINGS: Transitional lumbosacral anatomy with L5-S1 partial sacralization (for the sake of labeling). No acute fracture, dislocation or osseous destruction. Small anterior osteophytes. Lumbar lordosis preserved. No significant scoliosis. Conus medullaris terminates normally at the L1 level. T12-L1: Normal endplates. Normal disc height, hydration and morphology. Normal bilateral facet joints. Normal central canal and bilateral lateral recesses. Normal bilateral intervertebral neural foramina. L1-2: Normal endplates. Normal disc height, hydration and morphology. Normal bilateral facet joints. Normal central canal and bilateral lateral recesses. Normal bilateral intervertebral neural foramina. L2-3: Normal endplates. Disc morphology. Normal bilateral facet joints. Normal central canal and bilateral lateral recesses. Normal bilateral intervertebral neural foramina. L3-4: Normal endplates. Disc bulge with mild/moderate central canal narrowing. Facet joint arthrosis. Bilateral lateral recess narrowing without impingement. Normal bilateral intervertebral neural foramina. L4-5: Normal endplates. Disc bulge, asymmetric to the right, with mild central canal narrowing. Facet joint arthrosis. Right lateral recess narrowing without impingement. Left-sided neural femoral narrowing with impingement. L5-S1: Normal endplates. Small central disc annular fissure. Facet joint arthrosis. Normal central canal and bilateral lateral recesses. Normal bilateral intervertebral neural foramina. Mild paraspinal muscle atrophy. Bilateral extrarenal pelvis. Nondilated middle/distal ureters. Normal aorta. Sacrum intact. MRI/Spine Lumbar (Routine) IMPRESSION: Multilevel intervertebral disc disease with central canal narrowing at L3-4 and L4-5 Left neural foraminal narrowing with impingement of the left exiting L4 nerve root Multilevel lateral recess narrowing without impingement Transitional lumbosacral anatomy with mild osteoarthritis Electronically Signed: Farhat Alcantara DO at 13:49 EDT Tel , Service support ,
== END ==
PROVIDERS: Family Provider Internal Medicine; PCP Internal Medicine; Referring Provider Physician Assistant Surgical; Visit Provider Physician Assistant Surgical
DX: M51.36 Other intervertebral disc degeneration, lumbar region (principal); M48.061 Spinal stenosis, lumbar region without neurogenic claudication
CPT/HCPCS: 72148

== ENCOUNTER 2019-07-21 11:41 | Outpatient (RCR) | payer MEDICARE, SELFPAY ==
[2019-07-21 13:03] LABS: International Normalized Ratio 2.8
== END 2019-07-21 13:00 ==
LOC: LAB 11:41
PROVIDERS: Family Provider Internal Medicine; PCP Internal Medicine; Referring Provider Internal Medicine Cardiovascular Disease; Visit Provider Internal Medicine Cardiovascular Disease
DX: I48.92 Unspecified atrial flutter (principal); Z79.01 Long term (current) use of anticoagulants; M51.36 Other intervertebral disc degeneration, lumbar region; M48.061 Spinal stenosis, lumbar region without neurogenic claudication
CPT/HCPCS: 36415; 72148; 85610

== ENCOUNTER 2019-09-09 12:00 | Outpatient (RCR) | payer MEDICARE, SELFPAY ==
--- NOTE | 2019-08-09 13:31 | HP.PTEVAL_ITS ---
Patient's Visit Information ISAIAH COLLAZO is a 74 year old F referred to Physical Therapy by ALONDRA HAMPTON with a diagnosis of RADICULOPATHY OF UMBAR REGION,DEGENERATIVE DISC DISEASE. Date of Evaluation: 08/09/19 Physical Therapist: Sadi Fields, PT, Cert MDT, OCS - Visit Plan Frequency: 2x /Week Duration: 4 Weeks Plan: PT INTERVENTION DLS (ABD/BACK),POSTURAL EX'S,FUNCTIONAL STRENGTHENING,MODALTIES PRN - Subjective Findings: This 74 y/o female presents to physical therapy with radiculopathy of lumbar spine. Patient has had lumbar pain many years. Patient in [place] for lumbar spine ,recommended PT and had MRI. Patient has had epidural injections in past with pain management. Patient has left thigh to knee with pain. Patient symptoms affects walking left knee gives way. Aggraveting walking,bending,lifting . Alleviating factors sitting,resting. Patient c/o parathesia/tingling thigh. Bowel/bladder -. Coughing/sneezing -. Patient pain affects ADLS' ,housework tasks. Patient has had PT in past. Patient pain affects QOL and function.Pateint has h/o falling in past. Goal is to get strionger.Patient uses walker or cane extended distances in the community. SOCIAL: . VOCATION: reitred - Pain Left Lower Extremity Pain Intensity (Out of 10): 5 Pain Intensity Range: 10 Comment: THIGH TO KNEE WORST - Objective POSTURE: mild foward posture. GAIT: slow antalioc gait mild. NEURO: denies parathesia/tingling,reflexes intact 1/3. PALAPTION: inremarkable. SYMMTRIES: align. MMT: quads/hams 4-/5,hip flexion 4-/5,ankle 4/5. LUMBAR ROM: flexion mod loss,extension mod loss,side glides. FLEXABILITY: HAMS WFL. HIP ROM: IR 5 DEGREES - Special Tests L/S Slump test left side: Negative L/S Slump test right side: Negative L/S Left Straight Leg Raise: Negative L/S Right Straight Leg Raise: Negative Lumbar Standing: Flexion - Mechanical Response: No effect Lumbar Standing: Flexion - Symptoms During Testing: No effect Lumbar Standing: Flexion - Symptoms After Testing: No effect Lumbar Standing: Extension - Mechanical Response: No effect Lumbar Standing: Extension - Symptoms During Testing: Increases Lumbar Standing: Extension - Symptoms After Testing: No worse Lumbar Standing: Right Side Glides - Mechanical Response: No effect Lumbar Standing: Right Side [place] - Symptoms During Testing: No effect Lumbar Standing: Right Side [place] - Symptoms After Testing: No effect Lumbar Standing: Left Side [place] - Mechanical Response: No effect Lumbar Standing: Left Side [place] - Symptoms During Testing: No effect Lumbar Standing: Left Side [place] - Symptoms After Testing: No effect - Goals Goal 1:: Patient to be Independant with HEP Goal Time Frame: 4-6 Weeks Goal 2:: Patient to decrease back and leg pain by 50% or> to improve function. Goal Time Frame: 4-6 Weeks Goal 3:: Patient to increase strength BLE by 4/5 to improve function with gait. Goal Time Frame: 4-6 Weeks Goal 4:: Patient to improve quality of gait with device 80% of the time without device. Goal Time Frame: 4-6 Weeks Goal 5:: Patient to improve back owestry score by 5 points > to improve QOL. Goal Time Frame: 4-6 Weeks - Rehabilitation Potential Physical Therapy Diagnosis: Patient has low back pain affecting left leg with weakness,affects standing ,walking along with pain impairing ADLS' and function,thus benifit from skilled PT Rehabilitation Potential: Good - Anticipated Interventions Patient/Client Instruction: Educate patient on: Condition, Plan of Care For the Purpose of:: To decrease pain, To increase ROM, To improve muscle performance and motor function, To increase tolerance to activity/condition/position, To improve performance and independence with ADL's, To improve ability of physical actions for home/community/work/leisure, To improve health of tissue, To decrease soft tissue restriction, To increase flexibility/ROM, To reduce risk of recurrence, To improve ability to perform tasks related to life management Therapeutic Exercise to Include: Strength training, Endurance training, Body mechanics, Postural training, Flexibilty training, Dynamic Lumbar Stabilization Comment: BLE For the Purpose of:: To decrease pain, To increase ROM, To improve muscle performance and motor function, To increase tolerance to activity/condition/position, To improve ability of physical actions for home/community/work/leisure, To improve gait and locomotor functions, To improve health of tissue, To decrease soft tissue restriction, To improve endurance, To improve ability to perform tasks related to life management TENS: Yes IF ES: Yes Cryotherapy (ice pack, ice massage): Yes Thermo therapy (hot pack): Yes Ultrasound (thermal/non thermal): Yes For the Purpose of:: To decrease pain, To improve nutrient delivery to tissue, To increase oxygenation perfusion, To improve health of tissue, To decrease soft tissue restriction Thank you for the opportunity to evaluate your patient. For Medicare and Medicare HMO plans, please review the plan of care and approve it. It will need to be FAXED BACK to us at [phone] for Medicare purposes. For Medicare only, by signing this I certify the plan of care. Please let me know if there are questions or concerns regarding this plan of care. Physician Signat ure: Date:
--- NOTE | 2019-10-28 08:52 | HP.PTDCSUM ---
HP - PT D/C Summary It has been my pleasure to treat ISAIAH COLLAZO under orders from ALONDRA HAMPTON, for the diagnosis of RADICULOPATHY OF [place]MB[place] REGION,DEGENERATIVE DISC DISEASE for a total of 5 visit(s). Discharge Date: 09/09/19 Please see the following information for a summary of their discharge status. - Subjective Subjective: Doing better . Patient is able to do ADL'S and housework tasks with less pain. - Pain Left Lower Extremity Pain Intensity (Out of 10): 0 - Overall Improvement % Improvement: 100 - Objective Objective/Function: POSTURE: MILD FOWARD POSTURE. GAIT: reciprocal pattern. NEURO : INTACT. PALPATION: unremarkable. MMT: QUAD/HAMS /HIP 4/5 ANKLE 4/5. LUMBAR ROM: FLEXION MIN LOSS .EXTENSION MIN/MOD LOSS - Goals Goal 1:: Patient to be Independant with HEP Goal Progress: Goal Met Goal 2:: Patient to decrease back and leg pain by 50% or> to improve function. Goal Progress: Goal Met Goal 3:: Patient to increase strength BLE by 4/5 to improve function with gait. Goal Progress: Goal Met Goal 4:: Patient to improve quality of gait with device 80% of the time without device. Goal Progress: Goal Met Goal 5:: Patient to improve back owestry score by 5 points > to improve QOL. Goal Progress: Goal Met - Plan Plan: D/C TO HOME - D/C Information Discharge Comments: HEP If there are questions or concerns regarding this patient's physical therapy, please feel free to call me at [phone]. Thank you for the referral of this patient. Sincerely, Sadi Fields, PT, Cert MDT, OCS
== END 2019-09-09 19:00 | disposition home or self-care (01) ==
LOC: PT 12:00
PROVIDERS: Family Provider Internal Medicine; PCP Internal Medicine
DX: M54.16 Radiculopathy, lumbar region (principal)
CPT/HCPCS: 97110; 97162; 97530

== ENCOUNTER 2019-09-15 08:38 | Outpatient (RCR) | payer MEDICARE, SELFPAY ==
[2019-09-01 08:37] VITALS: BMI 30.8
[2019-09-01 11:43] LABS: International Normalized Ratio 3.2; Prothrombin Time (Protime)PT. 32.8 SECONDS (11.7-14.9)
[2019-09-15 09:26] LABS: Prothrombin Time (Protime)PT. 35.8 SECONDS (11.7-14.9)
[2019-09-15 09:34] LABS: International Normalized Ratio 3.6
[2019-09-15 12:48] LABS: Erythrocyte Sedimentation Rate 11 mm/hr (0-30)
[2019-09-15 12:50] LABS: Absolute Lymphocyte Count 1.61 X10^3/uL (0.83-4.51); Absolute Neutrophil Count 4.8 X10^3/uL (2.0-7.7); Basophil# 0.06 X10^3/uL; Basophil% 0.8 % (0-1); Eosinophil# 0.16 X10^3/uL; Eosinophils% 2.2 % (0-5); Hematocrit 42.4 % (37-47); Lymphocyte # 1.61 X10^3/ul (4.0); Lymphocyte % 22.5 % (19-41); Mean Corpuscular Hgb 32.1 pg (27.0-32.0); Mean Corpuscular Volume 97.2 fL (81-99); Mean Platelet Vol. 10.3 fl (6.2-12.0); Monocyte# 0.46 X10^3/uL; Monocyte% 6.4 % (0-10); NRBC Flagged by Analyzer 0 % (0-5); Neutrophil # 4.83 X10^3/uL (2.7-7.7); Neutrophil % 67.8 % (47-70); Platelet Count 150 K/mm3 (150-450); RBC Distribution Width CV 12.3 % (11.6-14.6); RBC Distribution Width SD 44.3 fl (35.1-43.9); Red Blood Count 4.36 M/mm3 (4.2-5.4); White Blood Count 7.1 K/mm3 (4.4-11.0)
[2019-09-15 13:14] LABS: Hemoglobin A1c 5.6 % (4.2-6.3)
[2019-09-15 13:22] LABS: AST(SGOT) 24 U/L (15-37); Alanine Aminotransfer ALT/SGPT 22 U/L (13-56); Alkaline Phosphatase 94 U/L (45-117); Anion Gap 9 (5-15); BUN 12 mg/dL (7-18); BUN/Creat Ratio 13.8 RATIO (10-20); CRP < 2.90 mg/L (0.0-3.0); Chloride 105 mmol/L (98-107); Creatinine, Serum 0.87 mg/dL (0.55-1.02); EST Glomerular Filtration Rate 68 mL/min (>60); Est Glom Filt Rate - Afr Amer 82 mL/min (>60); Globulin 3.9 g/dL (2.2-4.2); Glucose 85 mg/dL (74-106); Potassium 3.7 mmol/L (3.5-5.1); Prealbumin 25.4 mg/dL (20.0-40.0); Protein, Total 7.9 g/dL (6.4-8.2); Sodium Level 138 mmol/L (136-145)
== END 2019-09-15 18:00 | disposition home or self-care (01) ==
LOC: LAB 08:38
PROVIDERS: Family Provider Internal Medicine; PCP Internal Medicine; Referring Provider Internal Medicine Cardiovascular Disease; Visit Provider Internal Medicine Cardiovascular Disease
DX: I48.92 Unspecified atrial flutter (principal); Z79.01 Long term (current) use of anticoagulants; E11.9 Type 2 diabetes mellitus without complications; L97.919 Non-pressure chronic ulcer of unspecified part of right lower leg with unspecified severity
CPT/HCPCS: 36415; 80053; 83036; 84134; 85025; 85610; 85652; 86140

== ENCOUNTER 2019-09-15 13:24 | Outpatient (RCR) | payer MEDICARE, SELFPAY ==
[2019-09-01 08:37] VITALS: BP 116/82; PULSE 111; RESP 18; TEMP 36.6; BMI 30.8
--- NOTE | 2019-09-01 17:10 | HP.PCM_ITS ---
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 History of Wound: Ms. Red is a 74-year-old who was in a stable state of health until about 6 weeks ago when she noted right leg ulcer. Denies any history of trauma. Has been on some rounds of antibiotics without any significant improvement. She was advised to come to the wound center by her landlord. Feels well otherwise. Denies chills, fever or otherwise feeling of unwell. History of diabetes mellitus. Reports compliance with the medication but is unsure of her control. Past Medical History Past Medical History: Chronic Problems (Last Reviewed 05/16/19 @ 11:20 by Elvia Hall) Ulcer of right lower extremity with fat layer exposed (Chronic) Presence of permanent cardiac pacemaker (Chronic 04/01/19) Implant @ [facility] by Dr. 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) Obesity (Chronic) Diabetes mellitus (Chronic) Other secondary pulmonary hypertension (Chronic) Obesity (Chronic) Pulmonary hypertension (Chronic) RAMESH (obstructive sleep apnea) (Chronic) Asthma (Chronic) Hyperlipidemia (Chronic) Type 2 diabetes mellitus (Chronic) Hypertension (Chronic) group home (current) use of anticoagulants (Chronic) Atrial fibrillation (Chronic) Surgical History: noncontributory Allergies/Adverse Reactions: Allergies amoxicillin Allergy (Severe, Verified 07/10/19 08:17) Hives aspirin Allergy (Severe, Verified 07/10/19 08:17) Hives, SOB Sulfa (Sulfonamide Antibiotics) Allergy (Severe, Verified 07/10/19 08:17) Hives Home Medications: Ambulatory Orders Medication Instructions Recorded magnesium 400 mg (as magnesium 400 mg PO DAILY cap 11/18/17 oxide) capsule metformin 500 mg tablet 1,000 mg PO BID tab 02/13/18 glimepiride 2 mg tablet 2 mg PO DAILY PRN 10/11/18 budesonide-formoterol HFA 160 2 puff INHALATION BID 11/04/18 mcg-4.5 mcg/actuation aerosol inhaler Albuterol IH (ProAir) [Proair Hfa 1 puff INHALATION Q4H PRN PRN 11/18/18 (SP)Vent Pts] Oxycodone HCl/Acetaminophen 1 tab PO Q6H PRN PRN 11/18/18 [Percocet 5/325] Warfarin [Coumadin] 5 mg PO QHS 11/18/18 Warfarin [Coumadin (PBKC)] 6.5 mg PO DAILY@1700 02/04/19 albuterol sulfate HFA 90 2 puff INHALATION Q4H PRN #1 device 02/24/19 mcg/actuation aerosol inhaler atorvastatin 10 mg tablet 10 mg PO QHS #90 tab 05/08/19 losartan 50 mg tablet 50 mg PO BID tab 05/16/19 flecainide 100 mg tablet 100 mg PO Q12H #180 tab 05/23/19 - Family History Maternal Family History: Family History (Last Reviewed 05/16/19 @ 11:20 by Elvia Hall) Mother Diabetes Father CAD (coronary artery disease) Sister Lung cancer Son Kidney stone No pertinent history Smoking Status: Never smoker Review of Systems Constitutional: Denies: Anorexia, Chills, Fever Eyes: Denies: Blurred vision, Pain, Redness Cardiovascular: Denies: Chest Pain, Chest Pressure Respiratory: Denies: Hemoptysis Gastrointestinal: Denies: Abdominal Pain, Hematemesis, Vomiting - Physical Exam Vital Signs Temp Pulse Resp BP 97.8 F 111 H 18 116/82 H 09/01/19 08:37 09/01/19 08:37 09/01/19 08:37 09/01/19 08:37 General: Alert, Oriented x3, Cooperative, No apparent distress HEENT: Atraumatic, Normocephalic Neck: Supple Lungs: Clear to auscultation, Normal air movement Cardiovascular: Regular rate, Normal S1, Normal S2 Abdomen: Soft, Non Tender, Obese Extremities: No cyanosis, Edema Skin: Ulcer/ Wound Wound Measurements and Assessment WC - Nurse 1 - General Ulcer Measurement Start: 09/01/19 08:37 Freq: Status: Active Protocol: Activity Type Activity Date Activity User E-Sign Co-Sign Detail Recorded Client Recorded Date Recorded By Document 09/01/19 08:37 DL [id number] 09/01/19 09:10 DL 09/01/19 08:37 Wound Center Nurse 1 [Ulcer Assessment] #1 RLE Lat -Current Size (cm) - Length 0.8 -Current Size (cm) - Width 0.9 -Current Size (cm) - Depth 0.1 -Total Square Cm 0.72 -Photo Taken Yes -Classification - Thickness Unclassifiable (Eschar Covered ) -Exudate Amt Small -Exudate Type Sanguineous -Wound Margin Thickened -Granulation Amt None Present (0 %) -Slough/Fibrin Yes -Necrotic Tissue Type Eschar -Structure Exposed N/A -Texture (Beth-wound Skin Appearance) No Abnormality -Moisture (Beth-wound Skin Appearance No Abnormality ) -Color (Beth-wound Skin Appearance) Erythema,Rubor -Temperature (Beth-wound Skin No Abnormality Appearance) (Pt Warm) -Tenderness on Palpation (Beth-wound No Skin Appearance) -Ulcer Cleansing Wound Cleanser -Foul Odor after Cleansing No -Anesthetic Used 5% Lidocaine Gel [Edema Assessment] -Right Calf (cm) 36 -Right Ankle (cm) 21.5 -Left Calf (cm) 36.5 -Left Ankle (cm) 21.7 WC - Nurse 2 - General Ulcer CM Notes Start: 09/01/19 08:37 Freq: Status: Active Protocol: Activity Type Activity Date Activity User E-Sign Co-Sign Detail Recorded Client Recorded Date Recorded By Document 09/01/19 09:31 MW [id number] 09/01/19 09:33 MW 09/01/19 09:31 Wound Center Nurse 2 [Procedure/Treatment] #1 RLE Lat -Time 09:31 -Correct Patient Yes -Correct Side, Site, Position Yes -Correct Procedure Yes -Procedure Performed Yes -Type of Procedure Debridement -Clinical Debridement Subcutaneous -Post Debridement Size (cm) - Length 1.0 -Post Debridement Size (cm) - Width 1.0 -Post Debridement Size (cm) - Depth 0.3 -Total Square Cm 1.00 -Wound/Ulcer Outcome Not Healed -Ulcer Cleansing Rinsed/ Irrigated with Saline -Foul Odor after Cleansing No -Bioengineered Tissue No -Bleeding Controlled with Pressure -Offloading No -Treatment Response Procedure Tolerated Well [See Physician Procedure note for Specifics] Pain Scale: 0-10 Numeric [Pain] -Is Patient Pain Free? Yes Neurological: Cranial nerves II-XII grossly intact Psych/Mental Status: Normal Affect Debridement Note Post-Debridement Measurements/Treatment WC - Nurse 2 - General Ulcer CM Notes Start: 09/01/19 08:37 Freq: Status: Active Protocol: Activity Type Activity Date Activity User E-Sign Co-Sign Detail Recorded Client Recorded Date Recorded By Document 09/01/19 09:31 MW [id number] 09/01/19 09:33 MW 09/01/19 09:31 Wound Center Nurse 2 #1 RLE Lat -Time 09:31 -Correct Patient Yes -Correct Side, Site, Position Yes -Correct Procedure Yes -Procedure Performed Yes -Type of Procedure Debridement -Clinical Debridement Subcutaneous -Post Debridement Size (cm) - Length 1.0 -Post Debridement Size (cm) - Width 1.0 -Post Debridement Size (cm) - Depth 0.3 -Total Square Cm 1.00 -Wound/Ulcer Outcome Not Healed -Ulcer Cleansing Rinsed/ Irrigated with Saline -Foul Odor after Cleansing No -Bioengineered Tissue No -Bleeding Controlled with Pressure -Offloading No -Treatment Response Procedure Tolerated Well Pain Scale: 0-10 Numeric Is Patient Pain Free? Yes Wound debrided: Right leg Type of Debridement: Excisional debridement Anesthesia Used: 4% Lidocaine Solution Depth: Down to and including healthy tissue, in the subcutaneous layer Percentage of wound debrided: 100 Instrument Used: 5mm curette Tissue Removed: Slough and devitalized tissue Severity: Fat Layer Exposed Amount of bleeding with debridement: Mild Bleeding Controlled with: Pressure Patient tolerated procedure well Assessment/Plan Active Problems (Last Reviewed 05/16/19 @ 11:20 by Elvia Hall) Ulcer of right lower extremity with fat layer exposed (Chronic) Type 2 diabetes mellitus (Chronic) 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 History of type 2 diabetes mellitus. Venous insufficiency. Plan: Debridement done as documented above. Procedure was well-tolerated. Areas of varicosity noted in the right lower extremity. No known history of peripheral arterial disease however history of A. fib currently on anticoagulation. Advised to apply Promogran daily with Adaptic over top. Arterial and venous studies ordered. A1c, CMP and ESR also ordered. Follow-up with results. Increase protein intake and optimal diabetes control recommended. All questions were answered and she was advised to call with any further questions or concerns. Follow-up in a week. This note was generated with [employer] dictation software. It may contain incorrect words, spelling, and punctuation that were not noted in checking the note before signing. Multi Select Codes - Integumentary Integumentary CPT Codes: 90986 Renuka subq tissue 20 sq cm/< - E and M code ( New Level 4 )
[2019-09-08 09:51] VITALS: BP 147/78; PULSE 89; RESP 16; TEMP 35.4; BMI 30.8
--- NOTE | 2019-09-08 10:55 | PN.PCM_ITS ---
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 History of Wound: Ms. Red is a 74-year-old who was in a stable state of health until about 6 weeks ago when she noted right leg ulcer. Denies any history of trauma. Has been on some rounds of antibiotics without any significant improvement. She was advised to come to the wound center by her landlord. Feels well otherwise. Denies chills, fever or otherwise feeling of unwell. History of diabetes mellitus. Reports compliance with the medication but is unsure of her control. Progress of Wound: No new concerns at this time. Yet to get her studies and Labs done. - Physical Exam Vital Signs Temp Pulse Resp BP 95.7 F L 89 16 147/78 H 09/08/19 09:51 09/08/19 09:51 09/08/19 09:51 09/08/19 09:51 General: Alert, Oriented x3, Cooperative, No apparent distress HEENT: Atraumatic, Normocephalic Oral: Moist Mucosa Neck: Supple Lungs: Normal air movement Abdomen: Non Tender Extremities: No cyanosis, Edema Skin: Ulcer/ Wound Wound Measurements and Assessment WC - Nurse 1 - General Ulcer Measurement Start: 09/01/19 08:37 Freq: Status: Active Protocol: Activity Type Activity Date Activity User E-Sign Co-Sign Detail Recorded Client Recorded Date Recorded By Document 09/08/19 09:51 [facility] [id number] 09/08/19 09:58 [facility] 09/08/19 09:51 Wound Center Nurse 1 [Ulcer Assessment] #1 RLE Lat -Combined with other wound No -Current Size (cm) - Length 1.7 -Current Size (cm) - Width 0.9 -Current Size (cm) - Depth 0.2 -Total Square Cm 1.53 -Photo Taken No -Epithelialization None Present -Tunneling No -Undermining/Tunneling No -Circular Undermining No -Exudate Amt Small -Exudate Type Serosanguineous -Wound Margin Distinct, Outline Attached -Granulation Amt Medium (34-66%) -Granulation Quality Red -Slough/Fibrin Yes -Necrosis Amt Medium (34-66%) -Necrotic Tissue Type Eschar -Texture (Beth-wound Skin Appearance) Assessed, Scarring -Moisture (Beth-wound Skin Appearance Assessed,Dry/ ) Scaly -Color (Beth-wound Skin Appearance) Assessed, Erythema -Temperature (Beth-wound Skin No Abnormality Appearance) (Pt Warm) -Tenderness on Palpation (Beth-wound No Skin Appearance) -Ulcer Cleansing Rinsed/ Irrigated with Saline -Foul Odor after Cleansing No -Anesthetic Used 5% Lidocaine Gel [Edema Assessment] -Lower Limb Edema Present Yes -Right Calf (cm) 36.5 -Right Ankle (cm) 21.6 WC - Nurse 2 - General Ulcer CM Notes Start: 09/01/19 08:37 Freq: Status: Active Protocol: Activity Type Activity Date Activity User E-Sign Co-Sign Detail Recorded Client Recorded Date Recorded By Document 09/08/19 10:13 MW [id number] 09/08/19 10:16 MW 09/08/19 10:13 Wound Center Nurse 2 [Procedure/Treatment] #1 RLE Lat -Time 10:14 -Correct Patient Yes -Correct Side, Site, Position Yes -Correct Procedure Yes -Procedure Performed Yes -Type of Procedure Debridement -Clinical Debridement Subcutaneous -Post Debridement Size (cm) - Length 1.5 -Post Debridement Size (cm) - Width 0.9 -Post Debridement Size (cm) - Depth 0.1 -Total Square Cm 1.35 -Wound/Ulcer Outcome Not Healed -Ulcer Cleansing Rinsed/ Irrigated with Saline -Foul Odor after Cleansing No -Bioengineered Tissue No -Bleeding Controlled with Pressure -Offloading No -Treatment Response Procedure Tolerated Well [See Physician Procedure note for Specifics] Pain Scale: 0-10 Numeric [Pain] -Is Patient Pain Free? Yes Musculoskeletal: No Muscle Wasting Neurological: Cranial nerves II-XII grossly intact Psych/Mental Status: Normal Affect Debridement Note Post-Debridement Measurements/Treatment WC - Nurse 2 - General Ulcer CM Notes Start: 09/01/19 08:37 Freq: Status: Active Protocol: Activity Type Activity Date Activity User E-Sign Co-Sign Detail Recorded Client Recorded Date Recorded By Document 09/01/19 09:31 MW [id number] 09/01/19 09:33 MW Document 09/08/19 10:13 MW [id number] 09/08/19 10:16 MW 09/01/19 09/08/19 09:31 10:13 Wound Center Nurse 2 #1 RLE Lat -Time 09:31 10:14 -Correct Patient Yes Yes -Correct Side, Site, Position Yes Yes -Correct Procedure Yes Yes -Procedure Performed Yes Yes -Type of Procedure Debridement Debridement -Clinical Debridement Subcutaneous Subcutaneous -Post Debridement Size (cm) - Length 1.0 1.5 -Post Debridement Size (cm) - Width 1.0 0.9 -Post Debridement Size (cm) - Depth 0.3 0.1 -Total Square Cm 1.00 1.35 -Wound/Ulcer Outcome Not Healed Not Healed -Ulcer Cleansing Rinsed/ Rinsed/ Irrigated with Irrigated with Saline Saline -Foul Odor after Cleansing No No -Bioengineered Tissue No No -Bleeding Controlled with Pressure Pressure -Offloading No No -Treatment Response Procedure Procedure Tolerated Well Tolerated Well Pain Scale: 0-10 Numeric Is Patient Pain Free? Yes Yes Wound debrided: Right leg Type of Debridement: Excisional debridement Anesthesia Used: 4% Lidocaine Solution Depth: Down to and including healthy tissue, in the subcutaneous layer Percentage of wound debrided: 100 Instrument Used: 3mm curette Tissue Removed: Slough and devitalized tissue Severity: Fat Layer Exposed Amount of bleeding with debridement: Mild Bleeding Controlled with: Pressure Patient tolerated procedure well Assessment/Plan Active Problems (Last Reviewed 05/16/19 @ 11:20 by Elvia Hall) Ulcer of right lower extremity with fat layer exposed (Chronic) Type 2 diabetes mellitus (Chronic) assisted (current) use of anticoagulants (Chronic) Assessment: Nonhealing right leg ulcer. History of type 2 diabetes mellitus. Venous insufficiency. Plan: Debridement done as documented above. Procedure was well-tolerated. advised to get her labs and studies done. Continue Promogran daily with Adaptic over top. Increase protein intake and optimal diabetes control recommended. 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 All her questions were answered and she was advised to call with any further questions or concerns. Follow-up in a week. This note was generated with [employer] software. It may contain incorrect words, spelling, and punctuation that were not noted in checking the note before signing. Code Visit [id number]: [id number] Renuka subq tissue 20 sq cm/<
--- NOTE | 2019-09-15 08:50 | VDLE_ITS ---
Reason For Study: leg ulcer, venous insufficiency RIGHT LEFT CFV is compressible, spontaneous, phasic, CFV is compressible, spontaneous, phasic, competent and demonstrates normal competent, and demonstrates normal augmentation. augmentation. FV is compressible, spontaneous, phasic, FV is compressible, spontaneous, phasic, competent and demonstrates normal competent and demonstrates normal augmentation. augmentation. POP V is compressible, spontaneous, phasic, POP V is compressible, spontaneous, phasic, competent and demonstrates normal competent and demonstrates normal augmentation. augmentation. T/P Trunk is compressible. T/P Trunk is compressible. PTV is compressible. PTV is compressible. RT PerV is compressible. LT PerV is compressible. SFJ is competent and measures .4 x .41 cm. SFJ is competent and measures .42 x .48 cm. GSV proximal thigh measures .21 x .18 cm. GSV proximal thigh measures .26 x .27 cm. GSV at knee measures .22 x .22 cm. GSV at knee measures .31x .36 cm. GSV INCOMPETENT throughout for greater than GSV INCOMPETENT throughout for greater than 0.5 seconds. 0.5 seconds. SSV proximal calf is competent and SSV proximal calf is competent and measures .14 x .17 cm. measures .25 x .23 cm. Hypoechoic area in the calf measuring .51 ASV proximal thigh is INCOMPETENT for greater x .34 cm in short. Area is too large to than 0.5 seconds and measures .18 x .22 cm. measure in long. Area is nonvascular. Procedure Exam performed in department. The exam was diagnostic. Interpretation Summary Deep veins of the lower extremities are bilaterally patent and compressible segmentally. There is no evidence of deep vein thrombosis on either side. Valvular competence appears intact within the proximal deep venous systems bilaterally. The great saphenous veins appear bilaterally patent and compressible segmentally. Sapheno-femoral junctions are bilaterally competent . Segmental valvular incompetence is noted within the great saphenous veins bilaterally. Small saphenous veins are patent and competent bilaterally. A left accessory saphenous vein in the left proximal thigh is incompetent. A large, non-vascular, hypoechoic area is noted in the right calf. This may represent a seroma or hematoma. Clinical correlation is advised. Ordering Physician: Clovis Villagran Performed By: Rolando Mcdermott RVT
[2019-09-15 10:03] VITALS: BP 149/83; PULSE 82; RESP 16; TEMP 35.5; BMI 30.8
--- NOTE | 2019-09-15 12:41 | PCM.WC.PN ---
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 History of Wound: Ms. Red is a 74-year-old who was in a stable state of health until about 6 weeks ago when she noted right leg ulcer. Denies any history of trauma. Has been on some rounds of antibiotics without any significant improvement. She was advised to come to the wound center by her landlord. Feels well otherwise. Denies chills, fever or otherwise feeling of unwell. History of diabetes mellitus. Reports compliance with the medication but is unsure of her control. Progress of Wound: Significnat tenderness and worsening of ulcer noted today. No chills, fever or otherwise feeling unwell. - Physical Exam Vital Signs Temp Pulse Resp BP 96 F L 82 16 149/83 H 09/15/19 10:03 09/15/19 10:03 09/15/19 10:03 09/15/19 10:03 General: Alert, Oriented x3, Cooperative, No apparent distress HEENT: Atraumatic, Normocephalic Oral: Moist Mucosa Neck: Supple Lungs: Normal air movement Extremities: No cyanosis, Edema Skin: Ulcer/ Wound Wound Measurements and Assessment WC - Nurse 1 - General Ulcer Measurement Start: 09/01/19 08:37 Freq: Status: Active Protocol: Activity Type Activity Date Activity User E-Sign Co-Sign Detail Recorded Client Recorded Date Recorded By Document 09/15/19 10:03 [facility] [id number] 09/15/19 10:09 [facility] 09/15/19 10:03 Wound Center Nurse 1 [Ulcer Assessment] #1 RLE Lat -Combined with other wound No -Current Size (cm) - Length 1.9 -Current Size (cm) - Width 0.9 -Current Size (cm) - Depth 0.1 -Total Square Cm 1.71 -Photo Taken No -Epithelialization None Present -Tunneling No -Undermining/Tunneling No -Circular Undermining No -Exudate Amt Small -Exudate Type Serosanguineous -Wound Margin Distinct, Outline Attached -Granulation Amt Medium (34-66%) -Granulation Quality Red -Slough/Fibrin Yes -Necrosis Amt Small (1-33%) -Necrotic Tissue Type Adherent Slough -Texture (Beth-wound Skin Appearance) Assessed, Scarring -Moisture (Beth-wound Skin Appearance Assessed,Dry/ ) Scaly -Color (Beth-wound Skin Appearance) Assessed, Erythema -Temperature (Beth-wound Skin No Abnormality Appearance) (Pt Warm) -Tenderness on Palpation (Beth-wound No Skin Appearance) -Ulcer Cleansing Rinsed/ Irrigated with Saline -Foul Odor after Cleansing No -Anesthetic Used 5% Lidocaine Gel [Edema Assessment] -Lower Limb Edema Present Yes -Right Calf (cm) 36.5 -Right Ankle (cm) 21.8 WC - Nurse 2 - General Ulcer CM Notes Start: 09/01/19 08:37 Freq: Status: Active Protocol: Activity Type Activity Date Activity User E-Sign Co-Sign Detail Recorded Client Recorded Date Recorded By Document 09/15/19 10:25 MW [id number] 09/15/19 10:28 MW 09/15/19 10:25 Wound Center Nurse 2 [Procedure/Treatment] #1 RLE Lat -Time 10:26 -Correct Patient Yes -Correct Side, Site, Position Yes -Correct Procedure Yes -Procedure Performed Yes -Type of Procedure Debridement -Clinical Debridement Subcutaneous -Post Debridement Size (cm) - Length 2.0 -Post Debridement Size (cm) - Width 1.0 -Post Debridement Size (cm) - Depth 0.1 -Total Square Cm 2.00 -Wound/Ulcer Outcome Not Healed -Ulcer Cleansing Rinsed/ Irrigated with Saline -Foul Odor after Cleansing No -Bioengineered Tissue No -Bleeding Controlled with Pressure -Offloading No -Treatment Response Procedure Tolerated Well [See Physician Procedure note for Specifics] Pain Scale: 0-10 Numeric [Pain] -Is Patient Pain Free? Yes Musculoskeletal: No Muscle Wasting Neurological: Cranial nerves II-XII grossly intact Psych/Mental Status: Normal Affect Debridement Note Post-Debridement Measurements/Treatment WC - Nurse 2 - General Ulcer CM Notes Start: 09/01/19 08:37 Freq: Status: Active Protocol: Activity Type Activity Date Activity User E-Sign Co-Sign Detail Recorded Client Recorded Date Recorded By Document 09/01/19 09:31 MW [id number] 09/01/19 09:33 MW Document 09/08/19 10:13 MW [id number] 09/08/19 10:16 MW Document 09/15/19 10:25 MW [id number] 09/15/19 10:28 MW 09/01/19 09/08/19 09/15/19 09:31 10:13 10:25 Wound Center Nurse 2 #1 RLE Lat -Time : 10:14 10:26 -Correct Patient Yes Yes Yes -Correct Side, Site, Position Yes Yes Yes -Correct Procedure Yes Yes Yes -Procedure Performed Yes Yes Yes -Type of Procedure Debridement Debridement Debridement -Clinical Debridement Subcutaneous Subcutaneous Subcutaneous -Post Debridement Size (cm) - Length 1.0 1.5 2.0 -Post Debridement Size (cm) - Width 1.0 0.9 1.0 -Post Debridement Size (cm) - Depth 0.3 0.1 0.1 -Total Square Cm 1.00 1.35 2.00 -Wound/Ulcer Outcome Not Healed Not Healed Not Healed -Ulcer Cleansing Rinsed/ Rinsed/ Rinsed/ Irrigated with Irrigated with Irrigated with Saline Saline Saline -Foul Odor after Cleansing No No No -Bioengineered Tissue No No No -Bleeding Controlled with Pressure Pressure Pressure -Offloading No No No -Treatment Response Procedure Procedure Procedure Tolerated Well Tolerated Well Tolerated Well Pain Scale: 0-10 Numeric Is Patient Pain Free? Yes Yes Yes Wound debrided: Right Leg Type of Debridement: Excisional debridement Anesthesia Used: 4% Lidocaine Solution Depth: Down to and including healthy tissue, in the subcutaneous layer Percentage of wound debrided: 100 Instrument Used: 3mm curette Tissue Removed: Slough and devitalized tissue Severity: Fat Layer Exposed Amount of bleeding with debridement: Mild Bleeding Controlled with: Pressure Patient tolerated procedure well Assessment/Plan Active Problems (Last Reviewed 05/16/19 @ 11:20 by Elvia Hall) Ulcer of right lower extremity with fat layer exposed (Chronic) Type 2 diabetes mellitus (Chronic) group home (current) use of anticoagulants (Chronic) Assessment: Nonhealing right leg ulcer. History of type 2 diabetes mellitus. Venous insufficiency. Plan: Debridement done as documented above. Procedure was well-tolerated. Yet to get her labs done, she was advised to and more labs reordered. Studies done today, will review. Cultures also taken due to increased tenderness and worsening circumference. Continue Promogran daily with Adaptic over top. Increase protein intake and optimal diabetes control recommended. 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 All her questions were answered and she was advised to call with any further questions or concerns. Follow-up in 2 weeks or sooner if needed. This note was generated with [employer] dictation software. It may contain incorrect words, spelling, and punctuation that were not noted in checking the note before signing. Code Visit 111xxx-113xx: 73212 Renuka subq tissue 20 sq cm/<
== END 2019-09-24 23:59 ==
LOC: WC 13:24
PROVIDERS: Family Provider Internal Medicine; PCP Internal Medicine; Referring Provider Internal Medicine; Visit Provider Internal Medicine
DX: E11.622 Type 2 diabetes mellitus with other skin ulcer (principal); L97.812 Non-pressure chronic ulcer of other part of right lower leg with fat layer exposed; I87.2 Venous insufficiency (chronic) (peripheral); E11.51 Type 2 diabetes mellitus with diabetic peripheral angiopathy without gangrene; I83.018 Varicose veins of right lower extremity with ulcer other part of lower leg; I83.92 Asymptomatic varicose veins of left lower extremity; G47.33 Obstructive sleep apnea (adult) (pediatric); E78.5 Hyperlipidemia, unspecified; J45.909 Unspecified asthma, uncomplicated; E66.9 Obesity, unspecified; I27.29 Other secondary pulmonary hypertension; I10 Essential (primary) hypertension; I48.20 Chronic atrial fibrillation, unspecified; Z79.84 Long term (current) use of oral hypoglycemic drugs; Z79.01 Long term (current) use of anticoagulants; Z95.0 Presence of cardiac pacemaker; Z79.899 Other long term (current) drug therapy
CPT/HCPCS: 11042; 87070; 87075; 87077; 87186; 87205; 93970; 99203; G0463

== ENCOUNTER 2019-10-13 09:30 | Outpatient (RCR) | payer MEDICARE, SELFPAY ==
[2019-09-25 01:13] VITALS: BP 149/83; PULSE 82; RESP 16; TEMP 35.5
[2019-09-29 09:53] VITALS: BP 146/75; PULSE 79; RESP 18; TEMP 36.4; BMI 30.8
--- NOTE | 2019-09-29 10:34 | PCM.WC.PN ---
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 History of Wound: Ms. Red is a 74-year-old who was in a stable state of health until about 6 weeks ago when she noted right leg ulcer. Denies any history of trauma. Has been on some rounds of antibiotics without any significant improvement. She was advised to come to the wound center by her landlord. Feels well otherwise. Denies chills, fever or otherwise feeling of unwell. History of diabetes mellitus. Reports compliance with the medication but is unsure of her control. Progress of Wound: Stable. No new concerns at this time. Completed antibiotics. - Physical Exam Vital Signs Temp Pulse Resp BP 97.6 F L 79 18 146/75 H 09/29/19 09:53 09/29/19 09:53 09/29/19 09:53 09/29/19 09:53 General: Alert, Oriented x3, Cooperative, No apparent distress HEENT: Atraumatic, Normocephalic Oral: Moist Mucosa Neck: Supple Lungs: Normal air movement Extremities: No cyanosis, Edema Skin: Ulcer/ Wound Wound Measurements and Assessment WC - Nurse 1 - General Ulcer Measurement Start: 09/29/19 09:53 Freq: Status: Active Protocol: Activity Type Activity Date Activity User E-Sign Co-Sign Detail Recorded Client Recorded Date Recorded By Document 09/29/19 09:53 DL [id number] 09/29/19 09:56 DL 09/29/19 09:53 Wound Center Nurse 1 [Ulcer Assessment] #1 RLE Lat -Current Size (cm) - Length 1.8 -Current Size (cm) - Width 0.8 -Current Size (cm) - Depth 0.2 -Total Square Cm 1.44 -Photo Taken No -Exudate Amt Small -Exudate Type Serosanguineous -Wound Margin Distinct, Outline Attached -Granulation Amt Large (67-100%) -Granulation Quality Red -Necrosis Amt Small (1-33%) -Necrotic Tissue Type Adherent Slough -Structure Exposed N/A -Texture (Beth-wound Skin Appearance) Scarring -Moisture (Beth-wound Skin Appearance Dry/Scaly ) -Color (Beth-wound Skin Appearance) Rubor -Temperature (Beth-wound Skin No Abnormality Appearance) (Pt Warm) -Tenderness on Palpation (Beth-wound No Skin Appearance) -Ulcer Cleansing Rinsed/ Irrigated with Saline -Foul Odor after Cleansing No -Anesthetic Used 5% Lidocaine Gel [Edema Assessment] -Right Calf (cm) 35 -Right Ankle (cm) 22.4 WC - Nurse 2 - General Ulcer CM Notes Start: 09/29/19 09:53 Freq: Status: Active Protocol: Activity Type Activity Date Activity User E-Sign Co-Sign Detail Recorded Client Recorded Date Recorded By Document 09/29/19 10:13 MW [id number] 09/29/19 10:22 MW 09/29/19 10:13 Wound Center Nurse 2 [Procedure/Treatment] #1 RLE Lat -Time 10:21 -Correct Patient Yes -Correct Side, Site, Position Yes -Correct Procedure Yes -Procedure Performed Yes -Type of Procedure Debridement -Clinical Debridement Subcutaneous -Post Debridement Size (cm) - Length 2.0 -Post Debridement Size (cm) - Width 0.9 -Post Debridement Size (cm) - Depth 0.1 -Total Square Cm 1.80 -Wound/Ulcer Outcome Not Healed -Ulcer Cleansing Rinsed/ Irrigated with Saline -Foul Odor after Cleansing No -Bioengineered Tissue No -Bleeding Controlled with Pressure -Offloading No -Treatment Response Procedure Tolerated Well [See Physician Procedure note for Specifics] Pain Scale: 0-10 Numeric [Pain] -Is Patient Pain Free? Yes Musculoskeletal: No Muscle Wasting Neurological: Cranial nerves II-XII grossly intact Psych/Mental Status: Normal Affect Debridement Note Post-Debridement Measurements/Treatment WC - Nurse 2 - General Ulcer CM Notes Start: 09/29/19 09:53 Freq: Status: Active Protocol: Activity Type Activity Date Activity User E-Sign Co-Sign Detail Recorded Client Recorded Date Recorded By Document 09/29/19 10:13 MW [id number] 09/29/19 10:22 MW 09/29/19 10:13 Wound Center Nurse 2 #1 RLE Lat -Time 10:21 -Correct Patient Yes -Correct Side, Site, Position Yes -Correct Procedure Yes -Procedure Performed Yes -Type of Procedure Debridement -Clinical Debridement Subcutaneous -Post Debridement Size (cm) - Length 2.0 -Post Debridement Size (cm) - Width 0.9 -Post Debridement Size (cm) - Depth 0.1 -Total Square Cm 1.80 -Wound/Ulcer Outcome Not Healed -Ulcer Cleansing Rinsed/ Irrigated with Saline -Foul Odor after Cleansing No -Bioengineered Tissue No -Bleeding Controlled with Pressure -Offloading No -Treatment Response Procedure Tolerated Well Pain Scale: 0-10 Numeric Is Patient Pain Free? Yes Wound debrided: Right Leg Type of Debridement: Excisional debridement Anesthesia Used: 4% Lidocaine Solution Depth: Down to and including healthy tissue, in the subcutaneous layer Percentage of wound debrided: 100 Instrument Used: 5mm curette Tissue Removed: Slouh and devitalized tissue Severity: Fat Layer Exposed Amount of bleeding with debridement: Mild Bleeding Controlled with: Pressure Patient tolerated procedure well Assessment/Plan Active Problems (Last Reviewed 05/16/19 @ 11:20 by Elvia Hall) Ulcer of right lower extremity with fat layer exposed (Chronic) Type 2 diabetes mellitus (Chronic) Assessment: Nonhealing right leg ulcer. History of type 2 diabetes mellitus. Venous insufficiency. Plan: Some improvement noted. Debridement done as documented above. Procedure was well-tolerated. Labs reviewed. A1C, ESR and CRP within normal. Continue Promogran daily with Adaptic over top. Increase protein intake and optimal diabetes control recommended. 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 All her questions were answered and she was advised to call with any further questions or concerns. Follow-up in 1 week. This note was generated with [employer] dictation software. It may contain incorrect words, spelling, and punctuation that were not noted in checking the note before signing. Code Visit 111xxx-113xx: 70730 Renuka subq tissue 20 sq cm/<
--- NOTE | 2019-10-05 10:03 | ART_ITS ---
Reason For Study: PAD Procedure A bilateral lower extremity continuous wave Doppler with analog waveform analysis,segmental pressures,and ankle brachial indexes without exercise. Left Segmental Pressures Left brachial= 134mmHg. Left posterior tibial artery = 207mmHg. Left dorsalis pedis artery = 162mmHg. Left digit = 165 mmHg. The left dorsalis pedis waveforms are triphasic. The left posterior tibial artery waveforms are triphasic. Right Segmental Pressures Right brachial= 133mmHg. Right posterior tibial artery = >254mmHg. Right dorsalis pedis artery = 168mmHg. Right digit = 145 mmHg. The right dorsalis pedis waveforms are triphasic. The right posterior tibial artery waveforms are triphasic. Indices The right ankle brachial index by the dorsalis pedis is 1.25. The right ankle brachial index by the posterior tibial artery is NC. The right digital-brachial index is 1.08. The left ankle brachial index by the dorsalis pedis is 1.21. The left ankle brachial index by the posterior tibial artery is 1.54. The left digital-brachial index is 1.23. Interpretation Summary Triphasic Doppler waveforms are noted at ankle level bilaterally. Pulse-volume recordings appear satisfactory at all levels bilaterally. The resting right ankle-brachial index is normal. The resting left ankle-brachial index is supra-normal. Digital-brachial indices are normal or supra- normal bilaterally. Arterial flow appears to be normal in the lower extremities bilaterally. There is no evidence of significant arterial occlusive disease in the lower extremities bilaterally. However, there is evidence of arterial calcification in the lower extremities bilaterally. Ordering Physician: Clovis Villagran Referring Physician: Ro Reed M.D. Performed By: Zahraa Ernandez RVT
[2019-10-06 10:43] VITALS: BP 147/73; PULSE 83; RESP 18; TEMP 36.1; BMI 30.8
--- NOTE | 2019-10-06 11:04 | PCM.WC.PN ---
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 History of Wound: Ms. Red is a 74-year-old who was in a stable state of health until about 6 weeks ago when she noted right leg ulcer. Denies any history of trauma. Has been on some rounds of antibiotics without any significant improvement. She was advised to come to the wound center by her landlord. Feels well otherwise. Denies chills, fever or otherwise feeling of unwell. History of diabetes mellitus. Reports compliance with the medication but is unsure of her control. Progress of Wound: Improving. No new cocnerns at this time. - Physical Exam Vital Signs Temp Pulse Resp BP 97 F L 83 18 147/73 H 10/06/19 10:43 10/06/19 10:43 10/06/19 10:43 10/06/19 10:43 General: Alert, Oriented x3, Cooperative, No apparent distress HEENT: Atraumatic, Normocephalic Oral: Moist Mucosa Neck: Supple Lungs: Normal air movement Abdomen: Non Tender, Obese Extremities: No cyanosis Skin: Ulcer/ Wound Wound Measurements and Assessment WC - Nurse 1 - General Ulcer Measurement Start: 09/29/19 09:53 Freq: Status: Active Protocol: Activity Type Activity Date Activity User E-Sign Co-Sign Detail Recorded Client Recorded Date Recorded By Document 10/06/19 10:43 RB [id number] 10/06/19 10:45 RB 10/06/19 10:43 Wound Center Nurse 1 [Ulcer Assessment] #1 RLE Lat -Combined with other wound No -Current Size (cm) - Length 2 -Current Size (cm) - Width 0.7 -Current Size (cm) - Depth 0.1 -Total Square Cm 1.4 -Tunneling No -Undermining/Tunneling No -Circular Undermining No -Exudate Amt Small -Exudate Type Serosanguineous -Wound Margin Flat & Intact -Granulation Amt Medium (34-66%) -Granulation Quality Dargan -Slough/Fibrin Yes -Necrosis Amt Small (1-33%) -Necrotic Tissue Type Adherent Slough -Structure Exposed N/A -Texture (Beth-wound Skin Appearance) Assessed -Moisture (Beth-wound Skin Appearance Assessed ) -Color (Beth-wound Skin Appearance) Erythema, Hemosiderin Staining -Temperature (Beth-wound Skin No Abnormality Appearance) (Pt Warm) -Tenderness on Palpation (Beth-wound No Skin Appearance) -Ulcer Cleansing Wound Cleanser -Foul Odor after Cleansing No -Anesthetic Used 5% Lidocaine Gel [Edema Assessment] -Lower Limb Edema Present Yes -Right Calf (cm) 37.5 -Right Ankle (cm) 23 WC - Nurse 2 - General Ulcer CM Notes Start: 09/29/19 09:53 Freq: Status: Active Protocol: Activity Type Activity Date Activity User E-Sign Co-Sign Detail Recorded Client Recorded Date Recorded By Document 10/06/19 11:01 MW [id number] 10/06/19 11:02 MW 10/06/19 11:01 Wound Center Nurse 2 [Procedure/Treatment] #1 RLE Lat -Time 11:01 -Correct Patient Yes -Correct Side, Site, Position Yes -Correct Procedure Yes -Procedure Performed Yes -Type of Procedure Debridement -Clinical Debridement Subcutaneous -Post Debridement Size (cm) - Length 1.8 -Post Debridement Size (cm) - Width 0.6 -Post Debridement Size (cm) - Depth 0.1 -Total Square Cm 1.08 -Wound/Ulcer Outcome Not Healed -Ulcer Cleansing Rinsed/ Irrigated with Saline -Foul Odor after Cleansing No -Bioengineered Tissue No -Bleeding Controlled with Pressure -Offloading No -Treatment Response Procedure Tolerated Well [See Physician Procedure note for Specifics] Pain Scale: 0-10 Numeric [Pain] -Is Patient Pain Free? Yes Musculoskeletal: No Muscle Wasting Neurological: Cranial nerves II-XII grossly intact Psych/Mental Status: Normal Affect Debridement Note Post-Debridement Measurements/Treatment WC - Nurse 2 - General Ulcer CM Notes Start: 09/29/19 09:53 Freq: Status: Active Protocol: Activity Type Activity Date Activity User E-Sign Co-Sign Detail Recorded Client Recorded Date Recorded By Document 09/29/19 10:13 MW [id number] 09/29/19 10:22 MW Document 10/06/19 11:01 MW [id number] 10/06/19 11:02 MW 09/29/19 10/06/19 10:13 11:01 Wound Center Nurse 2 #1 RLE Lat -Time 10:21 11:01 -Correct Patient Yes Yes -Correct Side, Site, Position Yes Yes -Correct Procedure Yes Yes -Procedure Performed Yes Yes -Type of Procedure Debridement Debridement -Clinical Debridement Subcutaneous Subcutaneous -Post Debridement Size (cm) - Length 2.0 1.8 -Post Debridement Size (cm) - Width 0.9 0.6 -Post Debridement Size (cm) - Depth 0.1 0.1 -Total Square Cm 1.80 1.08 -Wound/Ulcer Outcome Not Healed Not Healed -Ulcer Cleansing Rinsed/ Rinsed/ Irrigated with Irrigated with Saline Saline -Foul Odor after Cleansing No No -Bioengineered Tissue No No -Bleeding Controlled with Pressure Pressure -Offloading No No -Treatment Response Procedure Procedure Tolerated Well Tolerated Well Pain Scale: 0-10 Numeric Is Patient Pain Free? Yes Yes Wound debrided: Right Leg Type of Debridement: Excisional debridement Anesthesia Used: 4% Lidocaine Solution Depth: Down to and including healthy tissue, in the subcutaneous layer Percentage of wound debrided: 100 Instrument Used: 3mm curette Tissue Removed: Slough and devitalized tissue Severity: Fat Layer Exposed Amount of bleeding with debridement: Mild Bleeding Controlled with: Pressure Patient tolerated procedure well Assessment/Plan Active Problems (Last Reviewed 05/16/19 @ 11:20 by Elvia Hall) Ulcer of right lower extremity with fat layer exposed (Chronic) Type 2 diabetes mellitus (Chronic) Assessment: Nonhealing right leg ulcer. History of type 2 diabetes mellitus. Venous insufficiency. Plan: Modest improvement. Debridement done as documented above. Procedure was well-tolerated. Continue Promogran daily with Adaptic over top. Increase protein intake and optimal diabetes control recommended. Continue double layer Tubi r&d engineer for edema management, elevate lower extremities, avoid idle standing and exercise as tolerated. Patient meets medical necessity for a skin sub due to only modest improvement after over 30 days of traditional wound care products and debridement. Ulcer is also chronic. Arterial and venous studies reviewed. All her questions were answered and she was advised to call with any further questions or concerns. Follow-up in 1 week. This note was generated with [employer] software. It may contain incorrect words, spelling, and punctuation that were not noted in checking the note before signing. Code Visit 111xxx-113xx: 53743 Renuka subq tissue 20 sq cm/<
[2019-10-13 09:22] VITALS: BP 124/56; PULSE 78; RESP 18; TEMP 36.8; BMI 30.8
--- NOTE | 2019-10-13 10:46 | PN.PCM_ITS ---
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 History of Wound: Ms. Red is a 74-year-old who was in a stable state of health until about 6 weeks ago when she noted right leg ulcer. Denies any history of trauma. Has been on some rounds of antibiotics without any significant improvement. She was advised to come to the wound center by her landlord. Feels well otherwise. Denies chills, fever or otherwise feeling of unwell. History of diabetes mellitus. Reports compliance with the medication but is unsure of her control. Progress of Wound: Improving. No new cocnerns at this time. - Physical Exam Vital Signs Temp Pulse Resp BP 98.3 F 78 18 124/56 H 10/13/19 09:22 10/13/19 09:22 10/13/19 09:22 10/13/19 09:22 General: Alert, Oriented x3, Cooperative, No apparent distress HEENT: Atraumatic, Normocephalic Oral: Moist Mucosa Neck: Supple Lungs: Normal air movement Extremities: Edema Skin: Ulcer/ Wound Wound Measurements and Assessment WC - Nurse 1 - General Ulcer Measurement Start: 09/29/19 09:53 Freq: Status: Active Protocol: Activity Type Activity Date Activity User E-Sign Co-Sign Detail Recorded Client Recorded Date Recorded By Document 10/13/19 09:22 [id number] 10/13/19 09:34 BS 10/13/19 09:22 Wound Center Nurse 1 [Ulcer Assessment] #1 RLE Lat -Combined with other wound No -Current Size (cm) - Length 1.7 -Current Size (cm) - Width 1 -Current Size (cm) - Depth 0.1 -Total Square Cm 1.7 -Texture (Beth-wound Skin Appearance) Assessed -Moisture (Beth-wound Skin Appearance Assessed,Dry/ ) Scaly -Temperature (Beth-wound Skin No Abnormality Appearance) (Pt Warm) -Tenderness on Palpation (Beth-wound No Skin Appearance) -Ulcer Cleansing Rinsed/ Irrigated with Saline -Foul Odor after Cleansing No -Anesthetic Used 4% Lidocaine Solution,5% Lidocaine Gel WC - Nurse 2 - General Ulcer CM Notes Start: 09/29/19 09:53 Freq: Status: Active Protocol: Activity Type Activity Date Activity User E-Sign Co-Sign Detail Recorded Client Recorded Date Recorded By Document 10/13/19 10:16 MW [id number] 10/13/19 10:19 MW 10/13/19 10:16 Wound Center Nurse 2 [Procedure/Treatment] -Time 10:16 -Correct Patient Yes -Correct Side, Site, Position Yes -Correct Procedure Yes -Procedure Performed Yes -Type of Procedure Debridement -Clinical Debridement Subcutaneous -Post Debridement Size (cm) - Length 1.4 -Post Debridement Size (cm) - Width 0.6 -Post Debridement Size (cm) - Depth 0.1 -Total Square Cm 0.84 -Wound/Ulcer Outcome Not Healed -Ulcer Cleansing Rinsed/ Irrigated with Saline -Foul Odor after Cleansing No -Bioengineered Tissue No -Bleeding Controlled with Pressure -Offloading No -Treatment Response Procedure Tolerated Well [See Physician Procedure note for Specifics] Pain Scale: 0-10 Numeric [Pain] -Is Patient Pain Free? Yes Musculoskeletal: No Muscle Wasting Neurological: Cranial nerves II-XII grossly intact Psych/Mental Status: Normal Affect Debridement Note Post-Debridement Measurements/Treatment WC - Nurse 2 - General Ulcer CM Notes Start: 09/29/19 09:53 Freq: Status: Active Protocol: Activity Type Activity Date Activity User E-Sign Co-Sign Detail Recorded Client Recorded Date Recorded By Document 09/29/19 10:13 MW [id number] 09/29/19 10:22 MW Document 10/06/19 11:01 MW [id number] 10/06/19 11:02 MW Document 10/13/19 10:16 MW [id number] 10/13/19 10:19 MW 09/29/19 10/06/19 10/13/19 10:13 11:01 10:16 Wound Center Nurse 2 #1 RLE Lat -Time 10:21 11:01 10:16 -Correct Patient Yes Yes Yes -Correct Side, Site, Position Yes Yes Yes -Correct Procedure Yes Yes Yes -Procedure Performed Yes Yes Yes -Type of Procedure Debridement Debridement Debridement -Clinical Debridement Subcutaneous Subcutaneous Subcutaneous -Post Debridement Size (cm) - Length 2.0 1.8 1.4 -Post Debridement Size (cm) - Width 0.9 0.6 0.6 -Post Debridement Size (cm) - Depth 0.1 0.1 0.1 -Total Square Cm 1.80 1.08 0.84 -Wound/Ulcer Outcome Not Healed Not Healed Not Healed -Ulcer Cleansing Rinsed/ Rinsed/ Rinsed/ Irrigated with Irrigated with Irrigated with Saline Saline Saline -Foul Odor after Cleansing No No No -Bioengineered Tissue No No No -Bleeding Controlled with Pressure Pressure Pressure -Offloading No No No -Treatment Response Procedure Procedure Procedure Tolerated Well Tolerated Well Tolerated Well Pain Scale: 0-10 Numeric Is Patient Pain Free? Yes Yes Yes Wound debrided: Right Leg Type of Debridement: Excisional debridement Anesthesia Used: 4% Lidocaine Solution, 5% Lidocaine Gel Depth: Down to and including healthy tissue, in the subcutaneous layer Percentage of wound debrided: 100 Instrument Used: 3mm curette Tissue Removed: Slough and devitalized tissue Severity: Fat Layer Exposed Amount of bleeding with debridement: Mild Bleeding Controlled with: Pressure Patient tolerated procedure well Assessment/Plan Active Problems (Last Reviewed 10/12/19 @ 11:17 by Lien Curran) Ulcer of right lower extremity with fat layer exposed (Chronic) Type 2 diabetes mellitus (Chronic) Assessment: Nonhealing right leg ulcer. History of type 2 diabetes mellitus. Venous insufficiency. Plan: Modest improvement. Debridement done as documented above. Procedure was well-tolerated. Continue Pomogran daily with Adaptic over top. Increase protein intake and optimal diabetes control recommended. Continue double layer Tubi legal summer intern for edema management, elevate lower extremities, avoid idle standing and exercise as tolerated. Patient meets medical necessity for a skin sub due to only modest improvement after over 30 days of traditional wound care products and debridement. Ulcer is also chronic. Arterial and venous studies reviewed. All her questions were answered and she was advised to call with any further questions or concerns. Follow-up in 2 weeks. This note was generated with [employer] software. It may contain incorrect words, spelling, and punctuation that were not noted in checking the note before signing. Code Visit 111xxx-113xx: 31147 Renuka subq tissue 20 sq cm/<
== END 2019-10-25 23:59 ==
LOC: WC 09:30
PROVIDERS: Family Provider Internal Medicine; PCP Internal Medicine; Referring Provider Internal Medicine; Visit Provider Internal Medicine
DX: E11.622 Type 2 diabetes mellitus with other skin ulcer (principal); L97.812 Non-pressure chronic ulcer of other part of right lower leg with fat layer exposed; E11.51 Type 2 diabetes mellitus with diabetic peripheral angiopathy without gangrene
CPT/HCPCS: 11042; 93923

== ENCOUNTER 2019-11-17 10:14 | Outpatient (RCR) | payer MEDICARE, SELFPAY ==
[2019-11-03 09:20] VITALS: BMI 30.4
[2019-11-04 13:21] LABS: International Normalized Ratio 3.1; Prothrombin Time (Protime)PT. 31.7 SECONDS (11.7-14.9)
[2019-11-17 11:35] LABS: International Normalized Ratio 2.5; Prothrombin Time (Protime)PT. 27.4 SECONDS (11.7-14.9)
== END 2019-11-17 18:00 | disposition home or self-care (01) ==
LOC: LAB 10:14
PROVIDERS: Family Provider Internal Medicine; PCP Internal Medicine; Referring Provider Internal Medicine Cardiovascular Disease; Visit Provider Internal Medicine Cardiovascular Disease
DX: I48.92 Unspecified atrial flutter (principal); Z79.01 Long term (current) use of anticoagulants
CPT/HCPCS: 36415; 85610

== ENCOUNTER 2019-11-24 08:30 | Outpatient (RCR) | payer MEDICARE, SELFPAY ==
[2019-10-26 00:51] VITALS: BP 124/56; PULSE 78; RESP 18; TEMP 36.8; BMI 30.4
[2019-10-27 13:00] VITALS: BP 151/85; PULSE 75; RESP 18; TEMP 36.6; BMI 30.4
--- NOTE | 2019-10-27 17:06 | PCM.WC.PN ---
(1) Ulcer of right lower extremity with fat layer exposed Status: Chronic Current Visit: Yes Code(s): L97.912 - Non-pressure chronic ulcer of unspecified part of right lower leg with fat layer exposed (2) Type 2 diabetes mellitus Status: Chronic Current Visit: Yes Code(s): E11.9 - Type 2 diabetes mellitus without complications (3) Hypertension Status: Chronic Current Visit: No Code(s): I10 - Essential (primary) hypertension (4) longterm (current) use of anticoagulants Status: Chronic Current Visit: No Code(s): Z79.01 - longterm (current) use of anticoagulants Type of Wound Date of Service: 10/27/19 Chief Complaint: Nonhealing right leg ulcer. History of Wound: Ms. Red is a 74-year-old who was in a stable state of health until about 6 weeks ago when she noted right leg ulcer. Denies any history of trauma. Has been on some rounds of antibiotics without any significant improvement. She was advised to come to the wound center by her landlord. Feels well otherwise. Denies chills, fever or otherwise feeling of unwell. History of diabetes mellitus. Reports compliance with the medication but is unsure of her control. Progress of Wound: Courtesy visit for Dr. Villagran. Patient has been compliant with daily use of Promogran covered with Adaptic, as well as compliant with double layer Tubigrip's for compression. The patient denies any fever, chills, nausea, vomiting, or diarrhea. Denies any signs of infection, including increasing pain, redness, swelling, or drainage from affected area. - Physical Exam Vital Signs Temp Pulse Resp BP 97.8 F 75 18 151/85 H 10/27/19 13:00 10/27/19 13:00 10/27/19 13:10/27/19 13:00 General: Alert, Oriented x3, Cooperative, No apparent distress HEENT: Atraumatic, EOMI, Normocephalic Oral: Moist Mucosa Extremities: No clubbing, No cyanosis, Capillary Refill Less than 3 Seconds, Edema - Trace edema of bilateral lower extremities, Peripheral Pulses Normal Skin: Ulcer/ Wound - Right lateral lower extremity ulceration, no surrounding erythema, swelling, warmth to palpation. No purulent or foul-smelling drainage. Tender to palpation/manipulation. Wound Measurements and Assessment WC - Nurse 1 - General Ulcer Measurement Start: 10/27/19 13:00 Freq: Status: Active Protocol: Activity Type Activity Date Activity User E-Sign Co-Sign Detail Recorded Client Recorded Date Recorded By Document 10/27/19 13:00 RB [id number] 10/27/19 13:03 RB 10/27/19 13:00 Wound Center Nurse 1 [Ulcer Assessment] #1 RLE Lat -Combined with other wound No -Current Size (cm) - Length 1.5 -Current Size (cm) - Width 0.5 -Current Size (cm) - Depth 0.1 -Total Square Cm 0.75 -Tunneling No -Undermining/Tunneling No -Circular Undermining No -Exudate Amt Small -Exudate Type Serosanguineous -Wound Margin Flat & Intact -Granulation Amt Medium (34-66%) -Granulation Quality [place],Red -Slough/Fibrin Yes -Necrosis Amt Small (1-33%) -Necrotic Tissue Type Adherent Slough -Structure Exposed N/A -Texture (Beth-wound Skin Appearance) Assessed -Moisture (Beth-wound Skin Appearance Assessed ) -Color (Beth-wound Skin Appearance) Assessed -Temperature (Beth-wound Skin No Abnormality Appearance) (Pt Warm) -Tenderness on Palpation (Beth-wound No Skin Appearance) -Ulcer Cleansing Wound Cleanser -Foul Odor after Cleansing No -Anesthetic Used 4% Lidocaine Solution [Edema Assessment] -Lower Limb Edema Present Yes -Right Calf (cm) 38 -Right Ankle (cm) 22.5 - Nurse 2 - General Ulcer CM Notes Start: 10/27/19 13:00 Freq: Status: Active Protocol: Activity Type Activity Date Activity User E-Sign Co-Sign Detail Recorded Client Recorded Date Recorded By Document 10/27/19 13:29 DV [id number] 10/27/19 13:39 DV 10/27/19 13:29 Wound Center Nurse 2 [Procedure/Treatment] #1 RLE Lat -Time 13:29 -Correct Patient Yes -Correct Side, Site, Position Yes -Correct Procedure Yes -Procedure Performed Yes -Type of Procedure Debridement -Clinical Debridement Subcutaneous -Post Debridement Size (cm) - Length 1.5 -Post Debridement Size (cm) - Width 0.8 -Post Debridement Size (cm) - Depth 0.1 -Total Square Cm 1.20 -Wound/Ulcer Outcome Not Healed -Ulcer Cleansing Rinsed/ Irrigated with Saline -Foul Odor after Cleansing No -Bioengineered Tissue Yes -Type of bioengineered Tissue EPIFIX -Expiration Date 06/26/24 -Product Lot Number [id number] -Percent Used 100 -Bleeding Controlled with Pressure -Offloading No -Treatment Response Procedure Tolerated Well [See Physician Procedure note for Specifics] Pain Scale: 0-10 Numeric [Pain] -Is Patient Pain Free? Yes Musculoskeletal: Tenderness - Right lateral lower extremity ulcer tender to palpation/manipulation Neurological: Neuro grossly intact Psych/Mental Status: Normal Affect, Appropriate Debridement Note Post-Debridement Measurements/Treatment WC - Nurse 2 - General Ulcer CM Notes Start: 10/27/19 13:00 Freq: Status: Active Protocol: Activity Type Activity Date Activity User E-Sign Co-Sign Detail Recorded Client Recorded Date Recorded By Document 10/27/19 13:29 DV [id number] 10/27/19 13:39 DV 10/27/19 13:29 Wound Center Nurse 2 #1 RLE Lat -Time 13:29 -Correct Patient Yes -Correct Side, Site, Position Yes -Correct Procedure Yes -Procedure Performed Yes -Type of Procedure Debridement -Clinical Debridement Subcutaneous -Post Debridement Size (cm) - Length 1.5 -Post Debridement Size (cm) - Width 0.8 -Post Debridement Size (cm) - Depth 0.1 -Total Square Cm 1.20 -Wound/Ulcer Outcome Not Healed -Ulcer Cleansing Rinsed/ Irrigated with Saline -Foul Odor after Cleansing No -Bioengineered Tissue Yes -Type of bioengineered Tissue EPIFIX -Expiration Date 06/26/24 -Product Lot Number [id number] -Percent Used 100 -Bleeding Controlled with Pressure -Offloading No -Treatment Response Procedure Tolerated Well Pain Scale: 0-10 Numeric Is Patient Pain Free? Yes Wound debrided: RLE lateral ulceration Laterality: Right Type of Debridement: Excisional debridement Anesthesia Used: 5% Lidocaine Gel Depth: in the subcutaneous layer Percentage of wound debrided: 100 Instrument Used: 5mm curette Tissue Removed: Slough and devitalized tissue Severity: Fat Layer Exposed Amount of bleeding with debridement: Mild Bleeding Controlled with: Compression and gauze Patient tolerated procedure well Assessment/Plan Active Problems (Last Reviewed 12/18/19 @ 11:17 by Lien Curran) Ulcer of right lower extremity with fat layer exposed (Chronic) Type 2 diabetes mellitus (Chronic) Assessment: Nonhealing right leg ulcer. History of type 2 diabetes mellitus. Venous insufficiency. Plan: No improvement at today's visit. Patient was approved for EpiFix advanced skin substitute. Debridement done as documented above. Procedure was well-tolerated. Following debridement, EpiFix was applied and covered with Adaptic touch. Patient instructed to leave EpiFix in place until follow-up visit. She was instructed to keep wound dressing clean and dry, and to cover when bathing/showering. Increase protein intake and optimal diabetes control recommended. Continue double layer Tubi recruitment director for edema management, elevate lower extremities, avoid idle standing and exercise as tolerated. Arterial and venous studies reviewed. All her questions were answered and she was advised to call with any further questions or concerns. Return to clinic in 1 week for re-evaluation. Return sooner or report to the emergency room should symptoms worsen, or new symptoms arise. Note: [employer] speech recognition office machines teacher software was used to create portions of this document. Sound-alike and misspelled words, as well as other office machines teacher errors may be contained in the documentation. Code Visit 150xxx-152xx: 71675 Skin sub graft trnk/arm/leg
[2019-11-03 09:20] VITALS: BP 142/66; PULSE 80; RESP 18; TEMP 36.3; BMI 30.4
--- NOTE | 2019-11-03 12:29 | PN.PCM_ITS ---
(1) Ulcer of right lower extremity with fat layer exposed Status: Chronic Current Visit: Yes Code(s): L97.912 - Non-pressure chronic ulcer of unspecified part of right lower leg with fat layer exposed (2) Atrial fibrillation Status: Chronic Current Visit: No Code(s): I48.91 - Unspecified atrial fibrillation (3) Type 2 diabetes mellitus Status: Chronic Current Visit: Yes Code(s): E11.9 - Type 2 diabetes mellitus without complications Type of Wound Date of Service: 11/03/19 Chief Complaint: Nonhealing right leg ulcer. History of Wound: Ms. Red is a 74-year-old who was in a stable state of health until about 6 weeks ago when she noted right leg ulcer. Denies any history of trauma. Has been on some rounds of antibiotics without any significant improvement. She was advised to come to the wound center by her landlord. Feels well otherwise. Denies chills, fever or otherwise feeling of unwell. History of diabetes mellitus. Reports compliance with the medication but is unsure of her control. Progress of Wound: No need concerns at this time. Has had 1 application of epi- fix. Said to have fallen off after about 4 days. - Physical Exam Vital Signs Temp Pulse Resp BP 97.3 F L 80 18 142/66 H 11/03/19 09:20 11/03/19 09:20 11/03/19 09:20 11/03/19 09:20 General: Alert, Oriented x3, Cooperative, No apparent distress HEENT: Atraumatic, Normocephalic Oral: Moist Mucosa Neck: Supple Lungs: Normal air movement Abdomen: Non Tender, Obese Extremities: No cyanosis Skin: Ulcer/ Wound Wound Measurements and Assessment WC - Nurse 1 - General Ulcer Measurement Start: 10/27/19 13:00 Freq: Status: Active Protocol: Activity Type Activity Date Activity User E-Sign Co-Sign Detail Recorded Client Recorded Date Recorded By Document 11/03/19 09:20 MARYURI [id number] 11/03/19 09:26 MARYURI 11/03/19 09:20 Wound Center Nurse 1 [Ulcer Assessment] #1 RLE Lat -Combined with other wound No -Current Size (cm) - Length 0.8 -Current Size (cm) - Width 0.4 -Current Size (cm) - Depth 0.2 -Total Square Cm 0.32 -Photo Taken Yes -Epithelialization Medium 34-66% -Tunneling No -Undermining/Tunneling No -Circular Undermining No -Exudate Amt Small -Exudate Type Serosanguineous -Wound Margin Flat & Intact -Granulation Amt Medium (34-66%) -Granulation Quality Red -Slough/Fibrin Yes -Necrosis Amt Small (1-33%) -Necrotic Tissue Type Adherent Slough -Structure Exposed N/A -Texture (Beth-wound Skin Appearance) Assessed, Localized Edema -Moisture (Beth-wound Skin Appearance Assessed,Dry/ ) Scaly -Color (Beth-wound Skin Appearance) Assessed -Temperature (Beth-wound Skin No Abnormality Appearance) (Pt Warm) -Tenderness on Palpation (Beth-wound No Skin Appearance) -Ulcer Cleansing Rinsed/ Irrigated with Saline -Foul Odor after Cleansing No -Anesthetic Used 4% Lidocaine Solution [Edema Assessment] -Lower Limb Edema Present Yes -Right Calf (cm) 36.8 -Right Ankle (cm) 22.0 WC - Nurse 2 - General Ulcer CM Notes Start: 10/27/19 13:00 Freq: Status: Active Protocol: Activity Type Activity Date Activity User E-Sign Co-Sign Detail Recorded Client Recorded Date Recorded By Document 11/03/19 10:05 MW [id number] 11/03/19 10:12 MW 11/03/19 10:05 Wound Center Nurse 2 [Procedure/Treatment] #1 RLE Lat -Time 10:05 -Correct Patient Yes -Correct Side, Site, Position Yes -Correct Procedure Yes -Procedure Performed Yes -Type of Procedure Debridement -Clinical Debridement Subcutaneous -Post Debridement Size (cm) - Length 1.0 -Post Debridement Size (cm) - Width 0.5 -Post Debridement Size (cm) - Depth 0.1 -Total Square Cm 0.50 -Wound/Ulcer Outcome Not Healed -Ulcer Cleansing Rinsed/ Irrigated with Saline -Foul Odor after Cleansing No -Bioengineered Tissue Yes -Type of bioengineered Tissue EPIFIX -Expiration Date 07/26/24 -Product Lot Number [id number] -Percent Used 100 -Saline Lot Number [id number] -Bleeding Controlled with Pressure -Other EPIFIX 18.0MM APPLIED TO RLE -Offloading No -Treatment Response Procedure Tolerated Well [See Physician Procedure note for Specifics] Pain Scale: 0-10 Numeric [Pain] -Is Patient Pain Free? Yes Musculoskeletal: No Muscle Wasting Neurological: Cranial nerves II-XII grossly intact Psych/Mental Status: Normal Affect Debridement Note Post-Debridement Measurements/Treatment WC - Nurse 2 - General Ulcer CM Notes Start: 10/27/19 13:00 Freq: Status: Active Protocol: Activity Type Activity Date Activity User E-Sign Co-Sign Detail Recorded Client Recorded Date Recorded By Document 10/27/19 13:29 DV [id number] 10/27/19 13:39 DV Document 11/03/19 10:05 MW [id number] 11/03/19 10:12 MW 10/27/19 11/03/19 13:29 10:05 Wound Center Nurse 2 #1 RLE Lat -Time 13:29 10:05 -Correct Patient Yes Yes -Correct Side, Site, Position Yes Yes -Correct Procedure Yes Yes -Procedure Performed Yes Yes -Type of Procedure Debridement Debridement -Clinical Debridement Subcutaneous Subcutaneous -Post Debridement Size (cm) - Length 1.5 1.0 -Post Debridement Size (cm) - Width 0.8 0.5 -Post Debridement Size (cm) - Depth 0.1 0.1 -Total Square Cm 1.20 0.50 -Wound/Ulcer Outcome Not Healed Not Healed -Ulcer Cleansing Rinsed/ Rinsed/ Irrigated with Irrigated with Saline Saline -Foul Odor after Cleansing No No -Bioengineered Tissue Yes Yes -Type of bioengineered Tissue EPIFIX EPIFIX -Expiration Date 06/26/24 07/26/24 -Product Lot Number [id number] -Percent Used 100 100 -Saline Lot Number [id number] -Bleeding Controlled with Pressure Pressure -Other EPIFIX 18.0MM APPLIED TO RLE -Offloading No No -Treatment Response Procedure Procedure Tolerated Well Tolerated Well Pain Scale: 0-10 Numeric Is Patient Pain Free? Yes Yes Wound debrided: Right leg Type of Debridement: Excisional debridement Anesthesia Used: 4% Lidocaine Solution Depth: Down to and including healthy tissue, in the subcutaneous layer Percentage of wound debrided: 100 Instrument Used: 3mm curette Tissue Removed: Slough and devitalized tissue Severity: Fat Layer Exposed Amount of bleeding with debridement: Mild Bleeding Controlled with: Pressure Patient tolerated procedure well Assessment/Plan Active Problems (Last Reviewed 10/12/19 @ 11:17 by Lien Curran) Ulcer of right lower extremity with fat layer exposed (Chronic) Type 2 diabetes mellitus (Chronic) Assessment: Nonhealing right leg ulcer. History of type 2 diabetes mellitus. Venous insufficiency. Plan: Debridement done as documented above. Procedure was well-tolerated. Second application of epi-fix done today is 100% of product. Moistened with saline with wound veil over top. Secured with Steri-Strips. Leave in place for a week. Continue edema management. Elevate lower extremities when seated and in bed. Optimal diabetes control and increased protein intake also recommended. Her questions were answered and she was advised to call with any more questions or concerns. Follow-up in a week. This note was generated with [employer] [place] dictation software. It may contain incorrect words, spelling, and punctuation that were not noted in checking the note before signing. Code Visit 150xxx-152xx: 77700 Skin sub graft trnk/arm/leg
[2019-11-10 09:01] VITALS: BP 140/69; PULSE 83; RESP 20; TEMP 35.8; BMI 30.4
--- NOTE | 2019-11-10 09:32 | PN.PCM_ITS ---
(1) Ulcer of right lower extremity with fat layer exposed Status: Chronic Current Visit: Yes Code(s): L97.912 - Non-pressure chronic ulcer of unspecified part of right lower leg with fat layer exposed (2) Atrial fibrillation Status: Chronic Current Visit: No Code(s): I48.91 - Unspecified atrial fibrillation (3) Type 2 diabetes mellitus Status: Chronic Current Visit: Yes Code(s): E11.9 - Type 2 diabetes mellitus without complications Type of Wound Date of Service: 11/10/19 Chief Complaint: Nonhealing right leg ulcer. History of Wound: Ms. Red is a 74-year-old who was in a stable state of health until about 6 weeks ago when she noted right leg ulcer. Denies any history of trauma. Has been on some rounds of antibiotics without any significant improvement. She was advised to come to the wound center by her landlord. Feels well otherwise. Denies chills, fever or otherwise feeling of unwell. History of diabetes mellitus. Reports compliance with the medication but is unsure of her control. Progress of Wound: New right upper villagomez wound from skin tear/ Tape tear. Has had 2 applications of epi-fix. - Physical Exam Vital Signs Temp Pulse Resp BP 96.4 F L 83 20 H 140/69 H 11/10/19 09:01 11/10/19 09:01 11/10/19 09:01 11/10/19 09:01 General: Alert, Oriented x3, Cooperative, No apparent distress HEENT: Atraumatic, Normocephalic Oral: Moist Mucosa Neck: Supple Lungs: Normal air movement Abdomen: Non Tender, Obese Extremities: No cyanosis Skin: Ulcer/ Wound Wound Measurements and Assessment WC - Nurse 1 - General Ulcer Measurement Start: 10/27/19 13:00 Freq: Status: Active Protocol: Activity Type Activity Date Activity User E-Sign Co-Sign Detail Recorded Client Recorded Date Recorded By Document 11/10/19 09:01 MARYURI [id number] 11/10/19 09:09 MARYURI 11/10/19 09:01 Wound Center Nurse 1 [Ulcer Assessment] 2-right mid villagomez -Combined with other wound No -Current Size (cm) - Length 0.6 -Current Size (cm) - Width 0.4 -Current Size (cm) - Depth 0.1 -Total Square Cm 0.24 -Photo Taken Yes -Epithelialization None Present -Tunneling No -Undermining/Tunneling No -Circular Undermining No -Exudate Amt None Present -Wound Margin Indistinct, Non -Visible -Granulation Amt None Present (0 %) -Slough/Fibrin Yes -Necrosis Amt Large (67-100%) -Necrotic Tissue Type Adherent Slough -Structure Exposed N/A -Texture (Beth-wound Skin Appearance) Localized Edema -Moisture (Beth-wound Skin Appearance Assessed,Dry/ ) Scaly -Color (Beth-wound Skin Appearance) Assessed -Temperature (Beth-wound Skin No Abnormality Appearance) (Pt Warm) -Tenderness on Palpation (Beth-wound No Skin Appearance) -Ulcer Cleansing Rinsed/ Irrigated with Saline -Foul Odor after Cleansing No -Anesthetic Used 4% Lidocaine Solution #1 RLE Lat -Combined with other wound No -Current Size (cm) - Length 0.1 -Current Size (cm) - Width 0.1 -Current Size (cm) - Depth 0.1 -Total Square Cm 0.01 -Photo Taken No -Epithelialization None Present -Tunneling No -Undermining/Tunneling No -Circular Undermining No -Exudate Amt None Present -Wound Margin Indistinct, Non -Visible -Granulation Amt None Present (0 %) -Slough/Fibrin Yes -Necrosis Amt Large (67-100%) -Necrotic Tissue Type Adherent Slough -Structure Exposed N/A -Texture (Beth-wound Skin Appearance) Assessed, Localized Edema -Moisture (Beth-wound Skin Appearance Assessed,Dry/ ) Scaly -Color (Beth-wound Skin Appearance) Assessed -Temperature (Beth-wound Skin No Abnormality Appearance) (Pt Warm) -Tenderness on Palpation (Beth-wound No Skin Appearance) -Ulcer Cleansing Wound Cleanser -Foul Odor after Cleansing No -Anesthetic Used 4% Lidocaine Solution [Edema Assessment] -Lower Limb Edema Present Yes -Right Calf (cm) 36.6 -Right Ankle (cm) 21.9 WC - Nurse 2 - General Ulcer CM Notes Start: 10/27/19 13:00 Freq: Status: Active Protocol: Activity Type Activity Date Activity User E-Sign Co-Sign Detail Recorded Client Recorded Date Recorded By Document 11/10/19 09:19 MW [id number] 11/10/19 09:30 MW 11/10/19 09:19 Wound Center Nurse 2 [Procedure/Treatment] 2-right mid villagomez -Time 09:21 -Correct Patient Yes -Correct Side, Site, Position Yes -Correct Procedure Yes -Procedure Performed Yes -Type of Procedure Debridement -Clinical Debridement Subcutaneous -Post Debridement Size (cm) - Length 0.7 -Post Debridement Size (cm) - Width 0.6 -Post Debridement Size (cm) - Depth 0.1 -Total Square Cm 0.42 -Wound/Ulcer Outcome Not Healed -Ulcer Cleansing Rinsed/ Irrigated with Saline -Foul Odor after Cleansing No -Bioengineered Tissue No -Bleeding Controlled with Pressure -Offloading No -Treatment Response Procedure Tolerated Well #1 RLE Lat -Time 09:20 -Correct Patient Yes -Correct Side, Site, Position Yes -Correct Procedure Yes -Procedure Performed Yes -Type of Procedure Debridement -Clinical Debridement Subcutaneous -Post Debridement Size (cm) - Length 0.4 -Post Debridement Size (cm) - Width 0.3 -Post Debridement Size (cm) - Depth 0.1 -Total Square Cm 0.12 -Wound/Ulcer Outcome Not Healed -Ulcer Cleansing Rinsed/ Irrigated with Saline -Foul Odor after Cleansing No -Bioengineered Tissue Yes -Type of bioengineered Tissue EPIFIX -Expiration Date 07/26/24 -Product Lot Number [id number] -Percent Used 100 -Saline Lot Number [id number] -Bleeding Controlled with Pressure -Offloading No -Treatment Response Procedure Tolerated Well [See Physician Procedure note for Specifics] Pain Scale: 0-10 Numeric [Pain] -Is Patient Pain Free? Yes Musculoskeletal: No Muscle Wasting Psych/Mental Status: Normal Affect Debridement Note Post-Debridement Measurements/Treatment WC - Nurse 2 - General Ulcer CM Notes Start: 10/27/19 13:00 Freq: Status: Active Protocol: Activity Type Activity Date Activity User E-Sign Co-Sign Detail Recorded Client Recorded Date Recorded By Document 10/27/19 13:29 DV [id number] 10/27/19 13:39 DV Document 11/03/19 10:05 MW [id number] 11/03/19 10:12 MW Document 11/10/19 09:19 MW [id number] 11/10/19 09:30 MW 10/27/19 11/03/19 11/10/19 13:29 10:05 09:19 Wound Center Nurse 2 2-right mid villagomez -Time 09:21 -Correct Patient Yes -Correct Side, Site, Position Yes -Correct Procedure Yes -Procedure Performed Yes -Type of Procedure Debridement -Clinical Debridement Subcutaneous -Post Debridement Size (cm) - Length 0.7 -Post Debridement Size (cm) - Width 0.6 -Post Debridement Size (cm) - Depth 0.1 -Total Square Cm 0.42 -Wound/Ulcer Outcome Not Healed -Ulcer Cleansing Rinsed/ Irrigated with Saline -Foul Odor after Cleansing No -Bioengineered Tissue No -Bleeding Controlled with Pressure -Offloading No -Treatment Response Procedure Tolerated Well #1 RLE Lat -Time 13:29 10:05 09:20 -Correct Patient Yes Yes Yes -Correct Side, Site, Position Yes Yes Yes -Correct Procedure Yes Yes Yes -Procedure Performed Yes Yes Yes -Type of Procedure Debridement Debridement Debridement -Clinical Debridement Subcutaneous Subcutaneous Subcutaneous -Post Debridement Size (cm) - Length 1.5 1.0 0.4 -Post Debridement Size (cm) - Width 0.8 0.5 0.3 -Post Debridement Size (cm) - Depth 0.1 0.1 0.1 -Total Square Cm 1.20 0.50 0.12 -Wound/Ulcer Outcome Not Healed Not Healed Not Healed -Ulcer Cleansing Rinsed/ Rinsed/ Rinsed/ Irrigated with Irrigated with Irrigated with Saline Saline Saline -Foul Odor after Cleansing No No No -Bioengineered Tissue Yes Yes Yes -Type of bioengineered Tissue EPIFIX EPIFIX EPIFIX -Expiration Date 06/26/24 07/26/24 07/26/24 -Product Lot Number [id number] -Percent Used 100 100 100 -Saline Lot Number [id number] -Bleeding Controlled with Pressure Pressure Pressure -Other EPIFIX 18.0MM APPLIED TO RLE -Offloading No No No -Treatment Response Procedure Procedure Procedure Tolerated Well Tolerated Well Tolerated Well Pain Scale: 0-10 Numeric Is Patient Pain Free? Yes Yes Yes Wound debrided: Right Leg ( lateral ) Type of Debridement: Excisional debridement Anesthesia Used: 4% Lidocaine Solution Depth: Down to and including healthy tissue, in the subcutaneous layer Percentage of wound debrided: 100 Instrument Used: 3mm curette Tissue Removed: Devitalized tissue Severity: Limited To Skin Breakdown Amount of bleeding with debridement: Mild Bleeding Controlled with: Pressure - Additional Wound Wound debrided: Right Leg ( Medial ) Type of Debridement: Excisional debridement Anesthesia Used: 4% Lidocaine Solution Depth: Down to and including healthy tissue, in the subcutaneous layer Percentage of wound debrided: 100 Instrument Used: 3mm curette Tissue Removed: Slough and devitalzied tissue Severity: Fat Layer Exposed Amount of bleeding with debridement: Mild Bleeding Controlled with: Pressure Patient tolerated procedure: Patient tolerated procedure well Assessment/Plan Active Problems (Last Updated 11/09/19 @ 15:32 by Elvia Hall) Ulcer of right lower extremity with fat layer exposed (Chronic) Type 2 diabetes mellitus (Chronic) Assessment: Nonhealing right leg ulcer. Right Leg wound. History of type 2 diabetes mellitus. Venous insufficiency. Plan: Debridement done as documented above. Procedure was well-tolerated. Third application of epi-fix done today using 100% of product. Moistened with saline with wound veil over top. Secured with Steri-Strips. Leave in place for a week. Continue edema management. Elevate lower extremities when seated and in bed. Optimal diabetes control and increased protein intake also recommended. Her questions were answered and she was advised to call with any more questions or concerns. Follow-up in a week. This note was generated with [employer] dictation software. It may contain incorrect words, spelling, and punctuation that were not noted in checking the note before signing. Code Visit 150xxx-152xx: 67065 Skin sub graft trnk/arm/leg
[2019-11-17 09:19] VITALS: BP 119/67; PULSE 76; RESP 18; TEMP 35.5; BMI 30.4
--- NOTE | 2019-11-17 12:41 | PCM.WC.PN ---
(1) Ulcer of right lower extremity with fat layer exposed Status: Chronic Current Visit: Yes Code(s): L97.912 - Non-pressure chronic ulcer of unspecified part of right lower leg with fat layer exposed (2) Atrial fibrillation Status: Chronic Current Visit: No Code(s): I48.91 - Unspecified atrial fibrillation (3) Type 2 diabetes mellitus Status: Chronic Current Visit: Yes Code(s): E11.9 - Type 2 diabetes mellitus without complications Type of Wound Date of Service: 11/17/19 Chief Complaint: Nonhealing right leg ulcer. History of Wound: Ms. Red is a 74-year-old who was in a stable state of health until about 6 weeks ago when she noted right leg ulcer. Denies any history of trauma. Has been on some rounds of antibiotics without any significant improvement. She was advised to come to the wound center by her landlord. Feels well otherwise. Denies chills, fever or otherwise feeling of unwell. History of diabetes mellitus. Reports compliance with the medication but is unsure of her control. Progress of Wound: Prior ulcer is healed. Skin tear with minimal area left. No new concerns. - Physical Exam Vital Signs Temp Pulse Resp BP 96 F L 76 18 119/67 11/17/19 09:19 11/17/19 09:19 11/17/19 09:19 11/17/19 09:19 General: Alert, Oriented x3, Cooperative, No apparent distress HEENT: Atraumatic, Normocephalic Oral: Moist Mucosa Neck: Supple Lungs: Normal air movement Extremities: No cyanosis Skin: Ulcer/ Wound Wound Measurements and Assessment WC - Nurse 1 - General Ulcer Measurement Start: 10/27/19 13:00 Freq: Status: Active Protocol: Activity Type Activity Date Activity User E-Sign Co-Sign Detail Recorded Client Recorded Date Recorded By Document 11/17/19 09:19 RB [id number] 11/17/19 09:22 RB 11/17/19 09:19 Wound Center Nurse 1 [Ulcer Assessment] 2-right mid villagomez -Combined with other wound No -Current Size (cm) - Length 0.1 -Current Size (cm) - Width 0.1 -Current Size (cm) - Depth 0.1 -Total Square Cm 0.01 -Tunneling No -Undermining/Tunneling No -Circular Undermining No -Exudate Amt None Present -Wound Margin Flat & Intact -Granulation Amt Small (1-33%) -Granulation Quality [place] -Slough/Fibrin Yes -Necrosis Amt Large (67-100%) -Necrotic Tissue Type Adherent Slough -Structure Exposed N/A -Texture (Beth-wound Skin Appearance) Assessed -Moisture (Beth-wound Skin Appearance Assessed,Dry/ ) Scaly -Color (Beth-wound Skin Appearance) Assessed -Temperature (Beth-wound Skin No Abnormality Appearance) (Pt Warm) -Tenderness on Palpation (Beth-wound No Skin Appearance) -Ulcer Cleansing Wound Cleanser -Foul Odor after Cleansing No -Anesthetic Used 4% Lidocaine Solution #1 RLE Lat -Current Size (cm) - Length 0.1 -Current Size (cm) - Width 0.1 -Current Size (cm) - Depth 0.1 -Total Square Cm 0.01 -Tunneling No -Undermining/Tunneling No -Circular Undermining No -Exudate Amt None Present -Wound Margin Flat & Intact -Granulation Amt Small (1-33%) -Granulation Quality [place] -Slough/Fibrin Yes -Necrosis Amt Large (67-100%) -Necrotic Tissue Type Adherent Slough -Structure Exposed N/A -Texture (Beth-wound Skin Appearance) Assessed -Moisture (Beth-wound Skin Appearance Assessed,Dry/ ) Scaly -Color (Beth-wound Skin Appearance) Assessed -Temperature (Beth-wound Skin No Abnormality Appearance) (Pt Warm) -Tenderness on Palpation (Beth-wound No Skin Appearance) -Ulcer Cleansing Wound Cleanser -Foul Odor after Cleansing No -Anesthetic Used 4% Lidocaine Solution [Edema Assessment] -Lower Limb Edema Present Yes -Right Calf (cm) 37 -Right Ankle (cm) 22.5 WC - Nurse 2 - General Ulcer CM Notes Start: 10/27/19 13:00 Freq: Status: Active Protocol: Activity Type Activity Date Activity User E-Sign Co-Sign Detail Recorded Client Recorded Date Recorded By Document 11/17/19 09:48 MW [id number] 11/17/19 09:51 MW 11/17/19 09:48 Wound Center Nurse 2 [Procedure/Treatment] 2-right mid villagomez -Time 09:50 -Correct Patient Yes -Correct Side, Site, Position Yes -Correct Procedure Yes -Procedure Performed Yes -Type of Procedure Debridement -Clinical Debridement Subcutaneous -Post Debridement Size (cm) - Length 0.2 -Post Debridement Size (cm) - Width 0.2 -Post Debridement Size (cm) - Depth 0.1 -Total Square Cm 0.04 -Wound/Ulcer Outcome Not Healed -Ulcer Cleansing Rinsed/ Irrigated with Saline -Foul Odor after Cleansing No -Bioengineered Tissue No -Bleeding Controlled with Pressure -Offloading No -Treatment Response Procedure Tolerated Well #1 RLE Lat -Time 09:49 -Correct Patient Yes -Correct Side, Site, Position Yes -Correct Procedure Yes -Procedure Performed No -Post Debridement Size (cm) - Length 0 -Post Debridement Size (cm) - Width 0 -Post Debridement Size (cm) - Depth 0 -Total Square Cm 0 -Wound/Ulcer Outcome Healed- Epithelialized [See Physician Procedure note for Specifics] Pain Scale: 0-10 Numeric [Pain] -Is Patient Pain Free? Yes Musculoskeletal: No Muscle Wasting Neurological: Cranial nerves II-XII grossly intact Psych/Mental Status: Normal Affect Debridement Note Post-Debridement Measurements/Treatment WC - Nurse 2 - General Ulcer CM Notes Start: 10/27/19 13:00 Freq: Status: Active Protocol: Activity Type Activity Date Activity User E-Sign Co-Sign Detail Recorded Client Recorded Date Recorded By Document 10/27/19 13:29 DV [id number] 10/27/19 13:39 DV Document 11/03/19 10:05 MW [id number] 11/03/19 10:12 MW Document 11/10/19 09:19 MW [id number] 11/10/19 09:30 MW Document 11/17/19 09:48 MW [id number] 11/17/19 09:51 MW 10/27/19 11/03/19 11/10/19 13:29 10:05 09:19 Wound Center Nurse 2 2-right mid villagomez -Time 09:21 -Correct Patient Yes -Correct Side, Site, Position Yes -Correct Procedure Yes -Procedure Performed Yes -Type of Procedure Debridement -Clinical Debridement Subcutaneous -Post Debridement Size (cm) - Length 0.7 -Post Debridement Size (cm) - Width 0.6 -Post Debridement Size (cm) - Depth 0.1 -Total Square Cm 0.42 -Wound/Ulcer Outcome Not Healed -Ulcer Cleansing Rinsed/ Irrigated with Saline -Foul Odor after Cleansing No -Bioengineered Tissue No -Bleeding Controlled with Pressure -Offloading No -Treatment Response Procedure Tolerated Well #1 RLE Lat -Time 13:29 10:05 09:20 -Correct Patient Yes Yes Yes -Correct Side, Site, Position Yes Yes Yes -Correct Procedure Yes Yes Yes -Procedure Performed Yes Yes Yes -Type of Procedure Debridement Debridement Debridement -Clinical Debridement Subcutaneous Subcutaneous Subcutaneous -Post Debridement Size (cm) - Length 1.5 1.0 0.4 -Post Debridement Size (cm) - Width 0.8 0.5 0.3 -Post Debridement Size (cm) - Depth 0.1 0.1 0.1 -Total Square Cm 1.20 0.50 0.12 -Wound/Ulcer Outcome Not Healed Not Healed Not Healed -Ulcer Cleansing Rinsed/ Rinsed/ Rinsed/ Irrigated with Irrigated with Irrigated with Saline Saline Saline -Foul Odor after Cleansing No No No -Bioengineered Tissue Yes Yes Yes -Type of bioengineered Tissue EPIFIX EPIFIX EPIFIX -Expiration Date 06/26/24 07/26/24 07/26/24 -Product Lot Number [id number] -Percent Used 100 100 100 -Saline Lot Number [id number] -Bleeding Controlled with Pressure Pressure Pressure -Other EPIFIX 18.0MM APPLIED TO RLE -Offloading No No No -Treatment Response Procedure Procedure Procedure Tolerated Well Tolerated Well Tolerated Well Pain Scale: 0-10 Numeric Is Patient Pain Free? Yes Yes Yes 11/17/19 09:48 Wound Center Nurse 2 2-right mid villagomez -Time 09:50 -Correct Patient Yes -Correct Side, Site, Position Yes -Correct Procedure Yes -Procedure Performed Yes -Type of Procedure Debridement -Clinical Debridement Subcutaneous -Post Debridement Size (cm) - Length 0.2 -Post Debridement Size (cm) - Width 0.2 -Post Debridement Size (cm) - Depth 0.1 -Total Square Cm 0.04 -Wound/Ulcer Outcome Not Healed -Ulcer Cleansing Rinsed/ Irrigated with Saline -Foul Odor after Cleansing No -Bioengineered Tissue No -Bleeding Controlled with Pressure -Offloading No -Treatment Response Procedure Tolerated Well #1 RLE Lat -Time 09:49 -Correct Patient Yes -Correct Side, Site, Position Yes -Correct Procedure Yes -Procedure Performed No -Type of Procedure -Clinical Debridement -Post Debridement Size (cm) - Length 0 -Post Debridement Size (cm) - Width 0 -Post Debridement Size (cm) - Depth 0 -Total Square Cm 0 -Wound/Ulcer Outcome Healed- Epithelialized -Ulcer Cleansing -Foul Odor after Cleansing -Bioengineered Tissue -Type of bioengineered Tissue -Expiration Date -Product Lot Number -Percent Used -Saline Lot Number -Bleeding Controlled with -Other -Offloading -Treatment Response Pain Scale: 0-10 Numeric Is Patient Pain Free? Yes Wound debrided: Right Villagomez Type of Debridement: Excisional debridement Anesthesia Used: 4% Lidocaine Solution Depth: Down to and including healthy tissue, in the subcutaneous layer Percentage of wound debrided: 100 Instrument Used: 3mm curette Tissue Removed: Devitalized tissue Severity: Fat Layer Exposed Amount of bleeding with debridement: Mild Bleeding Controlled with: Pressure Patient tolerated procedure well Assessment/Plan Active Problems (Last Updated 11/09/19 @ 15:32 by Elvia Hall) Ulcer of right lower extremity with fat layer exposed (Chronic) Type 2 diabetes mellitus (Chronic) Assessment: Nonhealing right leg ulcer. Right Leg wound. History of type 2 diabetes mellitus. Venous insufficiency. Plan: Debridement done as documented above. Procedure was well-tolerated. Pomogran to area skin tear/ulcer. Change daily. Continue edema management. Elevate lower extremities when seated and in bed. Optimal diabetes control and increased protein intake also recommended. Her questions were answered and she was advised to call with any more questions or concerns. Follow-up in a week. This note was generated with [employer] dictation software. It may contain incorrect words, spelling, and punctuation that were not noted in checking the note before signing. Code Visit 111xxx-113xx: 22981 Renuka subq tissue 20 sq cm/<
[2019-11-24 08:58] VITALS: BP 149/66; PULSE 85; RESP 18; TEMP 36.3; BMI 30.4
--- NOTE | 2019-11-24 10:04 | PCM.WC.PN ---
(1) Ulcer of right lower extremity with fat layer exposed Status: Chronic Current Visit: Yes Code(s): L97.912 - Non-pressure chronic ulcer of unspecified part of right lower leg with fat layer exposed (2) Atrial fibrillation Status: Chronic Current Visit: No Code(s): I48.91 - Unspecified atrial fibrillation (3) Type 2 diabetes mellitus Status: Chronic Current Visit: Yes Code(s): E11.9 - Type 2 diabetes mellitus without complications Type of Wound Date of Service: 11/24/19 Chief Complaint: Nonhealing right leg ulcer. History of Wound: Ms. Red is a 74-year-old who was in a stable state of health until about 6 weeks ago when she noted right leg ulcer. Denies any history of trauma. Has been on some rounds of antibiotics without any significant improvement. She was advised to come to the wound center by her landlord. Feels well otherwise. Denies chills, fever or otherwise feeling of unwell. History of diabetes mellitus. Reports compliance with the medication but is unsure of her control. Progress of Wound: Healed. No new concerns. - Physical Exam Vital Signs Temp Pulse Resp BP 97.3 F L 85 18 149/66 H 11/24/19 08:58 11/24/19 08:58 11/24/19 08:58 11/24/19 08:58 General: Alert, Oriented x3, Cooperative, No apparent distress HEENT: Atraumatic, Normocephalic Oral: Moist Mucosa Neck: Supple Lungs: Normal air movement Abdomen: Non Tender, Obese Wound Measurements and Assessment WC - Nurse 1 - General Ulcer Measurement Start: 10/27/19 13:00 Freq: Status: Active Protocol: Activity Type Activity Date Activity User E-Sign Co-Sign Detail Recorded Client Recorded Date Recorded By Document 11/24/19 08:58 RB [id number] 11/24/19 09:00 RB 11/24/19 08:58 Wound Center Nurse 1 [Ulcer Assessment] 2-right mid villagomez -Combined with other wound No -Current Size (cm) - Length 0.1 -Current Size (cm) - Width 0.1 -Current Size (cm) - Depth 0.1 -Total Square Cm 0.01 -Tunneling No -Undermining/Tunneling No -Circular Undermining No -Exudate Amt None Present -Wound Margin Flat & Intact -Granulation Amt Medium (34-66%) -Granulation Quality Boronda -Slough/Fibrin Yes -Necrosis Amt Medium (34-66%) -Necrotic Tissue Type Adherent Slough -Structure Exposed N/A -Texture (Beth-wound Skin Appearance) Assessed -Moisture (Beth-wound Skin Appearance Assessed ) -Color (Beth-wound Skin Appearance) Assessed -Temperature (Beth-wound Skin No Abnormality Appearance) (Pt Warm) -Tenderness on Palpation (Beth-wound No Skin Appearance) -Ulcer Cleansing Wound Cleanser -Foul Odor after Cleansing No -Anesthetic Used 5% Lidocaine Gel [Edema Assessment] -Lower Limb Edema Present Yes -Right Calf (cm) 37 -Right Ankle (cm) 21.6 WC - Nurse 2 - General Ulcer CM Notes Start: 10/27/19 13:00 Freq: Status: Active Protocol: Activity Type Activity Date Activity User E-Sign Co-Sign Detail Recorded Client Recorded Date Recorded By Document 11/24/19 09:25 MW [id number] 11/24/19 09:27 MW 11/24/19 09:25 Wound Center Nurse 2 [Procedure/Treatment] 2-right mid villagomez -Time 09:25 -Correct Patient Yes -Correct Side, Site, Position Yes -Correct Procedure Yes -Procedure Performed No -Post Debridement Size (cm) - Length 0 -Post Debridement Size (cm) - Width 0 -Post Debridement Size (cm) - Depth 0 -Total Square Cm 0 -Wound/Ulcer Outcome Healed- Epithelialized [See Physician Procedure note for Specifics] Pain Scale: 0-10 Numeric [Pain] -Is Patient Pain Free? Yes Musculoskeletal: No Muscle Wasting Neurological: Cranial nerves II-XII grossly intact Psych/Mental Status: Normal Affect Debridement Note Post-Debridement Measurements/Treatment WC - Nurse 2 - General Ulcer CM Notes Start: 10/27/19 13:00 Freq: Status: Active Protocol: Activity Type Activity Date Activity User E-Sign Co-Sign Detail Recorded Client Recorded Date Recorded By Document 10/27/19 13:29 DV [id number] 10/27/19 13:39 DV Document 11/03/19 10:05 MW [id number] 11/03/19 10:12 MW Document 11/10/19 09:19 MW [id number] 11/10/19 09:30 MW Document 11/17/19 09:48 MW [id number] 01/23/20 09:51 MW Document 11/24/19 09:25 MW [id number] 11/24/19 09:27 MW 10/27/19 11/03/19 11/10/19 13:29 10:05 09:19 Wound Center Nurse 2 2-right mid villagomez -Time 09:21 -Correct Patient Yes -Correct Side, Site, Position Yes -Correct Procedure Yes -Procedure Performed Yes -Type of Procedure Debridement -Clinical Debridement Subcutaneous -Post Debridement Size (cm) - Length 0.7 -Post Debridement Size (cm) - Width 0.6 -Post Debridement Size (cm) - Depth 0.1 -Total Square Cm 0.42 -Wound/Ulcer Outcome Not Healed -Ulcer Cleansing Rinsed/ Irrigated with Saline -Foul Odor after Cleansing No -Bioengineered Tissue No -Bleeding Controlled with Pressure -Offloading No -Treatment Response Procedure Tolerated Well #1 RLE Lat -Time 13:29 10:05 09:20 -Correct Patient Yes Yes Yes -Correct Side, Site, Position Yes Yes Yes -Correct Procedure Yes Yes Yes -Procedure Performed Yes Yes Yes -Type of Procedure Debridement Debridement Debridement -Clinical Debridement Subcutaneous Subcutaneous Subcutaneous -Post Debridement Size (cm) - Length 1.5 1.0 0.4 -Post Debridement Size (cm) - Width 0.8 0.5 0.3 -Post Debridement Size (cm) - Depth 0.1 0.1 0.1 -Total Square Cm 1.20 0.50 0.12 -Wound/Ulcer Outcome Not Healed Not Healed Not Healed -Ulcer Cleansing Rinsed/ Rinsed/ Rinsed/ Irrigated with Irrigated with Irrigated with Saline Saline Saline -Foul Odor after Cleansing No No No -Bioengineered Tissue Yes Yes Yes -Type of bioengineered Tissue EPIFIX EPIFIX EPIFIX -Expiration Date 06/26/24 07/26/24 07/26/24 -Product Lot Number [id number] -Percent Used 100 100 100 -Saline Lot Number [id number] -Bleeding Controlled with Pressure Pressure Pressure -Other EPIFIX 18.0MM APPLIED TO RLE -Offloading No No No -Treatment Response Procedure Procedure Procedure Tolerated Well Tolerated Well Tolerated Well Pain Scale: 0-10 Numeric Is Patient Pain Free? Yes Yes Yes 11/17/19 11/24/19 09:48 09:25 Wound Center Nurse 2 2-right mid villagomez -Time 09:50 09:25 -Correct Patient Yes Yes -Correct Side, Site, Position Yes Yes -Correct Procedure Yes Yes -Procedure Performed Yes No -Type of Procedure Debridement -Clinical Debridement Subcutaneous -Post Debridement Size (cm) - Length 0.2 0 -Post Debridement Size (cm) - Width 0.2 0 -Post Debridement Size (cm) - Depth 0.1 0 -Total Square Cm 0.04 0 -Wound/Ulcer Outcome Not Healed Healed- Epithelialized -Ulcer Cleansing Rinsed/ Irrigated with Saline -Foul Odor after Cleansing No -Bioengineered Tissue No -Bleeding Controlled with Pressure -Offloading No -Treatment Response Procedure Tolerated Well #1 RLE Lat -Time 09:49 -Correct Patient Yes -Correct Side, Site, Position Yes -Correct Procedure Yes -Procedure Performed No -Type of Procedure -Clinical Debridement -Post Debridement Size (cm) - Length 0 -Post Debridement Size (cm) - Width 0 -Post Debridement Size (cm) - Depth 0 -Total Square Cm 0 -Wound/Ulcer Outcome Healed- Epithelialized -Ulcer Cleansing -Foul Odor after Cleansing -Bioengineered Tissue -Type of bioengineered Tissue -Expiration Date -Product Lot Number -Percent Used -Saline Lot Number -Bleeding Controlled with -Other -Offloading -Treatment Response Pain Scale: 0-10 Numeric Is Patient Pain Free? Yes Yes No debridement was completed today Assessment/Plan Active Problems (Last Updated 11/09/19 @ 15:32 by Elvia Hall) Ulcer of right lower extremity with fat layer exposed (Chronic) Type 2 diabetes mellitus (Chronic) Assessment: Nonhealing right leg ulcer. Right Leg wound. History of type 2 diabetes mellitus. Venous insufficiency. Plan: Healed. No new concerns at this time. Adaptic over top x 2 weeks. Optimal diabetes control and increased protein intake also recommended. Her questions were answered and she was advised to call with any more questions or concerns. Discharged from the wound clinic. This note was generated with [employer] software. It may contain incorrect words, spelling, and punctuation that were not noted in checking the note before signing. Code Visit Office Visits / Consults: [id number] OV L3 Est - E and M level 3.
== END 2019-11-25 23:59 ==
LOC: WC 08:30
PROVIDERS: Family Provider Internal Medicine; PCP Internal Medicine; Referring Provider Internal Medicine; Visit Provider Internal Medicine
DX: E11.622 Type 2 diabetes mellitus with other skin ulcer (principal); L97.812 Non-pressure chronic ulcer of other part of right lower leg with fat layer exposed; I10 Essential (primary) hypertension; I87.2 Venous insufficiency (chronic) (peripheral); I48.20 Chronic atrial fibrillation, unspecified; L97.811 Non-pressure chronic ulcer of other part of right lower leg limited to breakdown of skin
CPT/HCPCS: 11042; 15271; 99213; Q4186; G0463

== ENCOUNTER 2019-12-11 18:28 | Inpatient (IN) | payer MEDICARE, SELFPAY ==
[2019-11-26 00:47] VITALS: BMI 30.7
[2019-12-11 18:29] VITALS: BP 156/73; PULSE 70; RESP 16; TEMP 37.6; O2SAT 98; BMI 29.8
--- NOTE | 2019-12-11 18:42 | CT_ITS ---
STUDY: CT BRAIN WITHOUT CONTRAST REASON FOR EXAM: Female, 74 years old. S/P FALL HITTING HEAD, ON COUMADIN RADIATION DOSAGE (If Supplied By Facility): CTDIvol = ( 44.99 ) mGy, DLP = ( 779.24 ) mGycm TECHNIQUE: Transaxial CT imaging of the brain was performed without administration of intravenous contrast material. Individualized dose optimization techniques were used for this CT. COMPARISON: 02/04/2019 FINDINGS: Small left occipital scalp hematoma. Normal calvarium. Normal size ventricles and extra-axial spaces for the patient''s age. Normal white matter tracts of the cerebral hemispheres. Normal basal ganglia and thalami. Normal brainstem. Normal cerebellum. There is no intracranial hemorrhage. There are no findings of an acute ischemic infarction. Normal visualized paranasal sinuses. CT/Brain/Head without Contrast IMPRESSION: Small left occipital scalp hematoma. No intracranial hemorrhage. Electronically Signed: Tomás Arnold MD at 19:27 EST Tel , Service support ,
--- NOTE | 2019-12-11 18:42 | EKG12_ITS ---
Test Reason : FALL Blood Pressure : / mmHG Vent. Rate : 067 BPM Atrial Rate : 067 BPM P-R Int : 108 ms QRS Dur : 072 ms QT Int : 394 ms P-R-T Axes : 000 -15 019 degrees QTc Int : 416 ms Atrial-paced rhythm Low voltage QRS Septal infarct , age undetermined Abnormal ECG Confirmed by MONROE NICOLE, ZOE ([id number]), social media editor MAURY WOODARD ([id number]) on 12/14/2019 9:00:40 AM Referred By: CARMINE Confirmed By:ZOE CHILDRESS MD
--- NOTE | 2019-12-11 18:45 | RAD_ITS ---
STUDY: X-RAY CHEST REASON FOR EXAM: Female, 74 years old. syncope TECHNIQUE: Single AP portable view of the chest. COMPARISON: 02/04/2019 FINDINGS: Interval placement of left clavian dual-lead pacemaker. No pneumothorax. The lungs are clear and expanded. There is no demonstrated pleural abnormality. There is moderate cardiac enlargement. Normal mediastinum and mahendra. Normal visualized pulmonary arteries. Normal visualized aortic arch and descending thoracic aorta. Normal visualized thoracic spine. Normal visualized ribs, clavicles, and shoulders. There is no demonstrated abnormality of the visualized soft tissue structures of the upper abdomen. RAD/Chest 1 View (Portable) IMPRESSION: 1. Interval placement of left subclavian dual-lead pacemaker with no pneumothorax. 2. Cardiomegaly. 3. No active pulmonary disease. Electronically Signed: Tomás Arnold MD at 19:01 EST Tel , Service support ,
[2019-12-11] MEDS: 0.9% Normal Saline 1,000 ML 1000 ML IV (18:59)
[2019-12-11 19:00] LABS: Absolute Lymphocyte Count 1.13 X10^3/uL (0.83-4.51); Absolute Neutrophil Count 9.7 X10^3/uL (2.0-7.7); Basophil# 0.03 X10^3/uL; Basophil% 0.3 % (0-1); Eosinophil# 0.01 X10^3/uL; Eosinophils% 0.1 % (0-5); Hematocrit 36.2 % (37-47); Hemoglobin 12.1 g/dL (12.0-15.0); Lymphocyte # 1.13 X10^3/ul (4.0); Lymphocyte % 9.5 % (19-41); Mean Corp Hgb Conc 33.4 g/dL (32-36); Mean Corpuscular Hgb 32.4 pg (27.0-32.0); Mean Corpuscular Volume 96.8 fL (81-99); Mean Platelet Vol. 9.7 fl (6.2-12.0); Monocyte% 7.6 % (0-10); NRBC Flagged by Analyzer 0 % (0-5); Neutrophil # 9.72 X10^3/uL (2.7-7.7); Neutrophil % 81.7 % (47-70); Platelet Count 168 K/mm3 (150-450); RBC Distribution Width CV 11.7 % (11.6-14.6); RBC Distribution Width SD 41.6 fl (35.1-43.9); Red Blood Count 3.74 M/mm3 (4.2-5.4); White Blood Count 11.9 K/mm3 (4.4-11.0)
[2019-12-11 19:02] VITALS: BP 157/67; PULSE 69; RESP 14; O2SAT 98
[2019-12-11 19:19] LABS: International Normalized Ratio 2.3; Prothrombin Time (Protime)PT. 24.9 SECONDS (11.7-14.9)
--- NOTE | 2019-12-11 19:23 | ED.VISSUMM ---
- ER Visit Summary Date of Service: 12/11/19 Chief Complaint: Falls History of Present Illness: The patient is a 74 F who presents from home. She lives alone. She fell 3 times today. Nothing seemed to consistently cause the falls--1 time she tripped over her dog and one time she fell after standing up from the toilet. She did hit her head but did not lose consciousness. She had some bleeding from an abrasion, but it stopped. She takes Coumadin. No other injuries. She has been diagnosed with a UTI 6 days ago. She is on antibiotics and has 1 day left. She has chills but no fevers. She had some nausea but no other GI symptoms. No chest pain or shortness of breath. No weakness, numbness, facial droop, speech changes, or vision changes. Physical Examination: Afebrile and vital signs unremarkable. Scalp shows an abrasion which is not actively bleeding. No indication for sutures or tami. Neck is nontender. HEENT exam unremarkable. Heart regular. Lungs clear. Abdomen soft and nontender. Skin otherwise normal. Cranial nerves grossly intact. Normal strength and sensation grossly. Test Results: EKG shows a paced rhythm. Labs, urinalysis, chest x-ray, CT brain pending. Emergency Department Course and Treatment: Patient presents with multiple falls. She is on Coumadin and hit her head. Will check CT brain. No other injuries which require imaging. Will check labs, EKG, urine, and chest x-ray for any contributing factors to her falls. White count 11.9. Sodium 135, glucose 135, liver panel and lipase normal. INR 2.3. Urinalysis shows signs of infection. Cultures pending. Troponin normal. TSH normal. Chest x-ray showed chronic changes, enlarged cardiac silhouette, pacer, no acute changes. CT brain shows a left occipital hematoma but nothing intracranial/acute. Patient has continued UTI findings despite treatment with Macrobid for 6 days. I suspect she may have some resistance. Culture is pending. Patient was treated with Rocephin. I believe this will be a safe medication with regards to elevating her INR. She has an allergy to amoxicillin, but I have low suspicion for cost reactivity with cephalosporins. Will monitor. Given the patient's ongoing UTI and multiple falls while on Coumadin, I believe the patient should be observed in the hospital for safety reasons. Patient and family agree. I contacted the hospitalist. Treatment Plan: As above Disposition: MedSur Impression: Encephalopathy Falls UTI This note was generated with [employer] dictation software. It may contain incorrect words, spelling, and punctuation that were not noted in review of the chart prior to signing ED Disposition - Plan for ED Patient: Referrals: Ro Reed MD [Primary Care Provider] -
[2019-12-11 19:26] LABS: ALB/GLOB Ratio 0.6 RATIO (0.9-2.4); AST(SGOT) 13 U/L (15-37); Alanine Aminotransfer ALT/SGPT 17 U/L (13-56); Alkaline Phosphatase 115 U/L (45-117); Anion Gap 8 (5-15); BUN 14 mg/dL (7-18); BUN/Creat Ratio 14.3 RATIO (10-20); Calcium,Total 9.2 mg/dL (8.5-10.1); Chloride 101 mmol/L (98-107); Creatinine, Serum 0.98 mg/dL (0.55-1.02); EST Glomerular Filtration Rate 59 mL/min (>60); Est Glom Filt Rate - Afr Amer 72 mL/min (>60); Estimated Creatinine Clearance 48.58 ml/min; Globulin 4.7 g/dL (2.2-4.2); Glucose 135 mg/dL (74-106); Lipase 61 U/L (73-393); Potassium 3.5 mmol/L (3.5-5.1); Protein, Total 7.7 g/dL (6.4-8.2); Sodium Level 135 mmol/L (136-145); Thyroid Stim Hormone (TSH) 0.61 uIU/mL (0.358-3.74)
[2019-12-11 19:31] VITALS: BP 153/68; BP 163/81; BP 170/78; PULSE 69; PULSE 70; PULSE 71
[2019-12-11 20:12] LABS: Mucous, Urine 0 SEEN /hpf (<or=2+)
[2019-12-11 20:17] LABS: Color, Urine Yellow (Yellow); Glucose, Dipstick Normal (Normal); Ketone-Dipstick Negative (Negative); Leukocyte Esterase-Dipstick 500 /ul (Negative); Nitrite-Dipstick Positive (Negative); Occult Blood-Urine 50 /ul (Negative); Protein-Dipstick 30 mg/dl (Negative); Urine Bilirubin Dipstick Negative (Negative); Urine Clarity Cloudy (Clear); Urine Urobilinogen Normal (Normal)
--- NOTE | 2019-12-11 20:27 | PCM.HP.STD ---
Problem List (1) Encephalopathy acute Status: Acute (2) Falls Status: Acute Qualifiers: Encounter type: initial encounter Qualified Code(s): W19.XXXA - Unspecified fall, initial encounter (3) UTI (urinary tract infection) Status: Acute Qualifiers: Urinary tract infection type: acute cystitis (4) Presence of permanent cardiac pacemaker Status: Chronic Comment: Implant @ [facility] by Dr. 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: without fdc use Diabetes mellitus complication status: with other specified complication Qualified Code(s): E11.69 - Type 2 diabetes mellitus with other specified complication (9) Hypertension Status: Chronic Qualifiers: Hypertension type: essential hypertension Qualified Code(s): I10 - Essential (primary) hypertension (10) Atrial fibrillation Status: Chronic Qualifiers: Atrial fibrillation type: unspecified Qualified Code(s): I48.91 - Unspecified atrial fibrillation History of Present Illness Date of Admission: 12/11/19 Chief Complaint: Fall, no LOC, recent UTI on abx The patient is a 74 y/o F w/ PMHx: PAF, Asthma, Diabetes mellitus type II, Chronic back pain with DDD, RAMESH, HTN, HLD who presents to the [facility] ED on 12/11/19 with history of recently initiated on Macrobid now x 6 days for UTI w/ ongoing urinary incontinence, frequency, chills although no dysuria, fever nor suprapubic TTP; however, patient has intermittent per family been confused, fatigued and fell x 3 at home today, living by herself, most recently while attempting to stand up after using the restroom, hitting her head and L elbow upon falling with denied LOC prompting family to bring her to the ED. Work-up in the ED included T 99.6, heart rate 70, BP 156/73, respiratory rate 16, 98% on room air, CBC with WBC 11.9, hemoglobin 12.1, platelet 160 with left shift, INR 2.3, CMP with sodium 135, glucose 135, troponin less than 0.01, lipase 61, TSH 0.61, urinalysis with specific gravity 1.010, protein 30, occult blood 50, nitrite positive, leukocyte esterase 500, pending WBC, squamous epithelial cells in urine bacteria upon requested evaluation of patient, EKG paced with no acute evidence of ischemia, chest x-ray with interval placement of left subclavian dual-lead pacemaker with no pneumothoraces evident, cardiomegaly with no active cardiopulmonary findings, CT of the brain with no acute intracranial hemorrhage with a noted small left occipital scalp hematoma. In the ED patient ministered normal saline as well as IV rocephin. Past Medical History Past Medical History (Chronic Problems): Chronic Problems (Last Updated 11/09/19 @ 15:32 by Elvia Hall) Abnormal EKG (Chronic) Ulcer of right lower extremity with fat layer exposed (Chronic) Presence of permanent cardiac pacemaker (Chronic 04/01/19) Implant @ [facility] by Dr. 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39 Obesity (Chronic) E66.9 Diabetes mellitus (Chronic) E11.9 Other secondary pulmonary hypertension (Chronic) I27.29 RAMESH (obstructive sleep apnea) (Chronic) G47.33 Asthma (Chronic) J45.909 [facility] (current) use of anticoagulants (Chronic) Z79.01 Atrial fibrillation (Chronic) I48.91 Cystitis N30.90 Allergic rhinitis J30.9 BMI 33.0-33.9,adult Z68.33 Contact dermatitis and other eczema DDD (degenerative disc disease) Dizziness and giddiness R42 Hx of bladder infections Z87.440 Hypersomnia G47.10 RAMESH (obstructive sleep apnea) G47.33 Palpitations R00.2 Shoulder dislocation S43.006A Viral URI with cough (Resolved) J06.9, B97.89 Allergies amoxicillin Allergy (Severe, Verified 12/11/19 18:29) Hives aspirin Allergy (Severe, Verified 12/11/19 18:29) Hives, SOB Sulfa (Sulfonamide Antibiotics) Allergy (Severe, Verified 12/11/19 18:29) Hives Home Medications: Ambulatory Orders Medication Instructions Recorded magnesium oxide 400 mg PO DAILY cap 11/18/17 metformin 500 mg tablet 1,000 mg PO BID tab 02/13/18 glimepiride 2 mg tablet 2 mg PO DAILY 10/11/18 budesonide-formoterol HFA 160 2 puff INHALATION BID 11/04/18 mcg-4.5 mcg/actuation aerosol inhaler Albuterol IH (ProAir) [Proair Hfa 1 puff INHALATION Q4H PRN PRN 11/18/18 (SP)Vent Pts] Oxycodone HCl/Acetaminophen 1 tab PO Q6H PRN PRN 11/18/18 [Percocet 5/325] Warfarin [Coumadin] 5 mg PO SUMOTUTHFRSA 11/18/18 Warfarin [Coumadin (PBKC)] 6.5 mg PO WE 02/04/19 atorvastatin 10 mg tablet 10 mg PO QHS #90 tab 05/08/19 flecainide 100 mg tablet 100 mg PO Q12H #180 tab 05/23/19 losartan 50 mg tablet 50 mg PO BID #180 tab 12/05/19 Surgical History: Surgical History (Last Reviewed 11/04/19 @ 13:07 by Elvia Hall) Presence of permanent cardiac pacemaker (Chronic) Onset Date: 04/01/19 Z95.0 Implant @ [facility] by Dr. 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 Lives: Alone Smoking Status: Never smoker Tobacco Use: Non-smoker Alcohol: None Drugs: None - *Family History Maternal Family History: Family History (Last Reviewed 11/04/19 @ 13:07 by Elvia Hall) Mother Diabetes Father CAD (coronary artery disease) Sister Lung cancer Son Kidney stone History Items: Diabetes Paternal Family History: Family History (Last Reviewed 11/04/19 @ 13:07 by Elvia Hall) Mother Diabetes Father CAD (coronary artery disease) Sister Lung cancer Son Kidney stone History Items: High Cholesterol, Heart Disease, Hypertension Review of Systems Constitutional: Reports: Anorexia, Chills, Malaise, Weakness, Fatigue. Denies: Fever, Weight Change HEENT: Reports: - - Fall w/ scalp laceration.. Denies: Head Aches, Sinus Congestion, Sinus Drainage Cardiovascular: Denies: Chest Pain, Palpitations Respiratory: Denies: Cough, Shortness of breath at rest, Sputum production Gastrointestinal: Denies: Abdominal Pain, Nausea, Vomiting Genitourinary: Reports: Frequency, Incontinence. Denies: Dysuria Musculoskeletal: Reports: Joint Pain. Denies: Joint Tenderness Skin: Reports: Skin Changes. Denies: Rash, Wounds Neurological: Denies: Numbness, Tingling, Focal weakness Psychiatric: Denies: Anxiety, Depression, Homicidal Ideations, Suicidal Ideations Hematologic/ Lymphatic: Reports: Easy Bruising, Easy Bleeding VTE Information - Inpt Only VTE Present on Admission: No VTE Mechan Device Prophylaxis: SCD's VTE Pharm Prophylaxis ordered?: No Reason prophylaxis not ordered:: Treatment Not Indicated - Coumadin, INR therapeutic, holding this evening, resume 12/12/19 Patient Problems: Active and Suspected Problems (Last Updated 11/09/19 @ 15:32 by Elvia Hall) Encephalopathy acute (Acute) Falls (Acute) UTI (urinary tract infection) (Acute) Subjective: Seated upright in the ED bed, fatigued appearing but no acute distress. Objective: Physical Examination: General: awake, alert, oriented to self, recent events, place, improving per family while in ED, remains cooperative, seated upright in the ED bed in no apparent distress. Skin: normal color, turgor, no icterus, cyanosis except noted BL LE chronic venous stasis skin changes, recent L elbow abrasion, small, no active bleeding, L occipital scalp small abrasion, no active bleeding. HEENT: Head w/ L occipital scalp small abrasion, no active bleeding w/ small hematoma noted, EOMI, PERRLA, dry MM, no carotid bruits or JVD noted. Lungs: CTA bilaterally, moderate effort, moderate decrease BL bases, no rales, ronchi or wheezing. Heart: Regular rate and rhythm (paced); no gallop, rub audible. Abdomen: soft, NTTP including suprapubic region, ND, normal BS, no HSM. Extremities: no cyanosis, clubbing, or edema. Neurological: patient awake, alert, oriented as noted; cognitive function improving since ED presentation, nearing baseline intact; pupils equally reactive to light and accomodation; cranial nerves II-XII grossly normal, moving all 4 extremities, no focal deficits, strength moderately to severely globally decreased secondary to acute presentation. Psychiatric: affect appears fatigued, no acute evidence of depressive or anxiety feelings. - Physical Exam Vitals/I&O's: Vital Signs Temp Pulse Resp BP Pulse Ox 99.6 F H 69 14 170/78 H 98 12/11/19 18:29 12/11/19 19:31 12/11/19 19:02 12/11/19 19:31 12/11/19 19:02 Oxygen Delivery Method Room Air Weight: 185 lb Body Mass Index (BMI) 29.8 Finger Stick Blood Glucose 320 Laboratory Results 12/11/19 18:50: WBC 11.9 H, RBC 3.74 L, Hgb 12.1, Hct 36.2 L, MCV 96.8, MCH 32.4 H, MCHC 33.4, RDW Std Deviation 41.6, RDW Coeff of Jason 11.7, Plt Count 168, MPV 9.7, Immature Gran % (Auto) 0.800, Neut % (Auto) 81.7 H, Lymph % (Auto) 9.5 L, [place] % (Auto) 7.6, Eos % (Auto) 0.1, Baso % (Auto) 0.3, Absolute Neuts (auto) 9.7 H, Absolute Lymphs (auto) 1.13, Nucleated RBC % 0 12/11/19 18:50: PT 24.9 H, INR 2.3 12/11/19 18:50: Sodium 135 L, Potassium 3.5, Chloride 101, Carbon Dioxide 26.0, Anion Gap 8, BUN 14, Creatinine 0.98, Estim Creat Clear Calc 48.58, Est GFR (MDRD) Af Amer 72, Est GFR (MDRD) Non-Af 59 L, BUN/Creatinine Ratio 14.3, Glucose 135 H, Calcium 9.2, Total Bilirubin 0.70, AST 13 L, ALT 17, Alkaline Phosphatase 115, Troponin I < 0.015, Total Protein 7.7, Albumin 3.0 L, Globulin 4.7 H, Albumin/Globulin Ratio 0.6 L, Lipase 61 L, TSH 0.61 12/11/19 19:45: Urine Color Yellow, Urine Clarity Cloudy, Urine pH 6.0, Ur Specific [place] 1.010, Urine Protein 30 H, Urine Glucose (UA) Normal, Urine Ketones Negative, Urine Occult Blood 50 H, Urine Nitrite Positive H, Urine Bilirubin Negative, Urine Urobilinogen Normal, Ur Leukocyte Esterase 500 H, Urine RBC Pending, Urine WBC Pending, Ur Squamous Epith Cells Pending, Urine Bacteria Pending, Urine Mucus Pending Assessment/Plan All Active Problems (Last Updated 11/09/19 @ 15:32 by Elvia Hall) Encephalopathy acute (Acute) Falls (Acute) UTI (urinary tract infection) (Acute) S/P ablation of atrial flutter (Resolved 04/01/19) Subtherapeutic international normalized ratio (INR) (Acute) Viral URI with cough (Resolved) The patient is a 74 y/o F w/ PMHx: PAF, Asthma, Diabetes mellitus type II, Chronic back pain with DDD, RAMESH, HTN, HLD who presents to the [facility] ED on 12/11/19 with history of recently initiated on Macrobid now x 6 days for UTI w/ ongoing urinary incontinence, frequency, chills although no dysuria, fever nor suprapubic TTP; however, patient has intermittent per family been confused, fatigued and fell x 3 at home today, living by herself, most recently while attempting to stand up after using the restroom, hitting her head and L elbow upon falling with denied LOC prompting family to bring her to the ED. 1. Acute Encephalopathy secondary to Acute UTI, Possibly also medication related (macrobid) w/ Mechanical Falls, Small L Occipital Scalp Hematoma, L Elbow Abrasion: Will admit to [facility] upon ED evaluation remarkable, pending UCx, continue IVFs, monitor I/Os, continue IV Rocephin w/ transition as able pending sensitivities and speciation, trend CBC, BMP, maintain on fall precautions, routine care to left elbow, no ongoing bleeding from small scalp laceration, PT/OT/CM consultations for discharge planning. 2. Chronic asthma: We will continue patient on symbicort as well as PRN albuterol, encourage head of bed, IS. 3. Diabetes mellitus type II: Hold oral home regimen, ADA diet, accu checks w/ ISS. 4. PAF: We will continue patient home flecainide regimen, INR therapeutic upon presentation, continue Coumadin with INR trending. 5. Hypertension: Continue home regimen including losartan, PRN hydralazine. 6. Chronic back pain with DDD: We will cautiously continue patient home PRN pain regimen, maintain on fall precautions, continue treatment as noted #1 and #2. 7. Hyperlipidemia: Continue home statin regimen. 8. RAMESH: Non-compliant with CPAP. 9. DVT prophylaxis: SCDs, hold Coumadin this evening with INR trending, therapeutic upon presentation. 10. CODE status: Patient ANGEL is her daughter who is present and living will is currently in place. Discussed CODE status at length including difference between FULL code, DNR-CCA and DNR-CC status. Following discussions about the differences in these status, requested Full Code status, although from discussions this subjective had not been discussed in detail prior. Advanced Care Planning Face to Face Time: 16 minutes. Code Visit Inpatient E&M: 84761 Init Hosp L3 Procedures: 89050 Advncd Care Plan 30 Min
[2019-12-11 20:41] LABS: Red Blood Cells-Urine 0-5 SEEN /hpf (0-5); White Blood Cells >100 SEEN /hpf (0-5)
[2019-12-11 20:42] LABS: Bacteria 3+ /hpf (None Seen); Squamous Epithelial Cells - UA 0-5 SEEN /hpf (5-10)
[2019-12-11] MEDS: Ceftriaxone 1 GM/50 ML BAG IV (20:44)
[2019-12-11 21:03] VITALS: BP 168/98; PULSE 72; RESP 19; O2SAT 96
[2019-12-11 21:30] VITALS: BMI 31.8; BMI 31.9
[2019-12-11 22:22] VITALS: BP 121/95; PULSE 67; RESP 18; TEMP 36.8; O2SAT 96
[2019-12-11 22:24] LABS: Magnesium 1.5 mg/dL (1.6-2.6)
[2019-12-11] MEDS: Losartan Potassium 50 MG Tablet PO (22:42)
[2019-12-11] MEDS: Flecainide 100 MG Tablet PO (22:42)
[2019-12-11] MEDS: Atorvastatin Calcium 10 MG Tablet PO (22:42)
[2019-12-11] MEDS: 0.9% Normal Saline 1,000 ML 100 ML IV (22:44)
[2019-12-11 23:00] LABS: Bedside Glucose 149 mg/dL (70-110)
[2019-12-12] VITALS (8 sets, daily range): BP systolic 108–161; BP diastolic 58–68; PULSE 63–82; RESP 18–20; TEMP 36.9–39.1; O2SAT 94–95
[2019-12-12] MEDS: Acetaminophen 325 MG Tablet 650 MG PO ×3 (04:06→22:25)
[2019-12-12 06:33] LABS: Anion Gap 4 (5-15); BUN 13 mg/dL (7-18); BUN/Creat Ratio 15.2 RATIO (10-20); Calcium,Total 8.4 mg/dL (8.5-10.1); Chloride 106 mmol/L (98-107); Creatinine, Serum 0.86 mg/dL (0.55-1.02); EST Glomerular Filtration Rate 69 mL/min (>60); Est Glom Filt Rate - Afr Amer 84 mL/min (>60); Estimated Creatinine Clearance 55.35 ml/min; Glucose 139 mg/dL (74-106); Potassium 3.5 mmol/L (3.5-5.1); Sodium Level 136 mmol/L (136-145)
[2019-12-12 06:56] LABS: Absolute Lymphocyte Count 0.87 X10^3/uL (0.83-4.51); Absolute Neutrophil Count 7.6 X10^3/uL (2.0-7.7); Basophil# 0.02 X10^3/uL; Basophil% 0.2 % (0-1); Eosinophil# 0.02 X10^3/uL; Eosinophils% 0.2 % (0-5); Hematocrit 30.3 % (37-47); Lymphocyte # 0.87 X10^3/ul (4.0); Lymphocyte % 9.2 % (19-41); Mean Corpuscular Hgb 31.6 pg (27.0-32.0); Mean Corpuscular Volume 95.9 fL (81-99); Mean Platelet Vol. 10.1 fl (6.2-12.0); Monocyte# 0.82 X10^3/uL; Monocyte% 8.7 % (0-10); NRBC Flagged by Analyzer 0 % (0-5); Neutrophil # 7.64 X10^3/uL (2.7-7.7); Platelet Count 142 K/mm3 (150-450); RBC Distribution Width CV 11.8 % (11.6-14.6); RBC Distribution Width SD 41.1 fl (35.1-43.9); Red Blood Count 3.16 M/mm3 (4.2-5.4); White Blood Count 9.4 K/mm3 (4.4-11.0)
[2019-12-12 06:56] LABS: Bedside Glucose 140 mg/dL (70-110)
[2019-12-12 07:48] LABS: International Normalized Ratio 2.2; Prothrombin Time (Protime)PT. 24.2 SECONDS (11.7-14.9)
[2019-12-12] MEDS: Flecainide 100 MG Tablet PO ×2 (08:14→22:09)
[2019-12-12] MEDS: Magnesium Oxide 400 MG Tablet PO (08:14)
[2019-12-12] MEDS: 0.9% Normal Saline 1,000 ML 100 ML IV ×2 (08:15→18:34)
--- NOTE | 2019-12-12 10:42 | CASEMGMT ---
Social Work Assessment Referral Date: 12/12/2019 Date of Assessment: 12/12/2019 Reason for consult: Discharge planning assessment Informant: SW Personal Status: SW met with pt to complete initial assessment. Pt is alert and orientated x3. SW introduced self and role at [facility]. Pt states that she lives alone in a trailer with three steps to enter. Pt states that her daughter lives across the road from her. Pt states that she was previously independent with ADLs, still drives. DME include cane, walker, and wheelchair. [facility]acy [facility]. PCP is Dr. Reed. Substance abuse Hx: Pt denied Mental Health Hx: Pt denied Pt states she has never had HHC before or been to SNF. Pt states she wishes to discharge home, denied need for HHC at this time. SW informed pt that PT/OT will work with pt to make sure pt is safe to return home. Pt states understanding, denied additional needs or concerns at this time. 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
[2019-12-12] MEDS: Albuterol 2.5 MG/3 ML VIAL.NEB. 0.5 MG INHALATION ×2 (10:55→20:00)
[2019-12-12] MEDS: Budesonide Respules 0.5 MG/2 ML AMPUL.NEB. INHALATION (10:55)
[2019-12-12 10:56] LABS: Magnesium 1.4 mg/dL (1.6-2.6)
[2019-12-12 10:56] LABS: Bedside Glucose 145 mg/dL (70-110)
--- NOTE | 2019-12-12 14:32 | CASEMGMT ---
Social Work Note Pt's daughter Dian at [facility] requesting to speak to this worker. KATIE met with Dian and introduced self and role at [facility]. Dian states she would like information on LifeAlert/Medical Alert button for pt. KATIE also spoke with Dian regarding Direction Home and Meals on Wheels. KATIE provided Dian with list of medical alert buttons, Direction Home and Meals on Wheels information. Dian thanked this worker, denied additional needs or concerns at this time. Zahraa Smith [employer], [employer]
--- NOTE | 2019-12-12 15:51 | PCM.PN.HOSP ---
Patient Problems: Active and Suspected Problems (Last Updated 11/09/19 @ 15:32 by Elvia Hall) Encephalopathy acute (Acute) Falls (Acute) UTI (urinary tract infection) (Acute) Reason for Visit: Follow-up on recurrent falls/UTI Subjective: Patient was seen and examined. Denied any new complaints. Denies any fever or chills. Feels much improved. Objective: Physical exam: Vitals/I&O's: Vital Signs Temp Pulse Resp BP Pulse Ox 102.4 F H 66 18 136/58 H 95 12/12/19 14:31 12/12/19 14:31 12/12/19 14:31 12/12/19 14:31 12/12/19 14:31 Oxygen Delivery Method Room Air Weight: 90.9 kg Body Mass Index (BMI) 31.8 Finger Stick Blood Glucose 320 Intake and Output for Last 24 Hours 12/10/19 12/11/19 12/12/19 23:59 23:59 23:59 Intake Total 1050 / 1200 1461.67 / 1461.67 Output Total 400 / 400 Balance 1050 / 1200 1061.67 / 1061.67 General: Alert, Oriented x3, Cooperative, No apparent distress HEENT: Atraumatic, PERRLA, EOMI, Normocephalic Oral: Moist Mucosa Neck: Supple Lungs: Clear to auscultation, Normal air movement Cardiovascular: Regular rate, Regular Rhythm, Normal S1, Normal S2, No murmurs Abdomen: Bowel Sounds Present, Soft, Non Tender, Non-Distended, No Hepato-splenomegaly Extremities: No edema Skin: No rashes Musculoskeletal: No Tenderness to Palpation of Joints or Extremities Lymphatic: No Cervical, Supraclavicular, or Inguinal Adenopathy Neurological: Cranial nerves II-XII grossly intact, Neuro grossly intact Psych/Mental Status: Normal Affect, Appropriate Microbiology Past 72 Hours 12/11/19 19:45 Urine, Clean Catch Urine 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 - 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 Results 12/11/19 18:50: WBC 11.9 H, RBC 3.74 L, Hgb 12.1, Hct 36.2 L, MCV 96.8, MCH 32.4 H, MCHC 33.4, RDW Std Deviation 41.6, RDW Coeff of Jason 11.7, Plt Count 168, MPV 9.7, Immature Gran % (Auto) 0.800, Neut % (Auto) 81.7 H, Lymph % (Auto) 9.5 L, [place] % (Auto) 7.6, Eos % (Auto) 0.1, Baso % (Auto) 0.3, Absolute Neuts (auto) 9.7 H, Absolute Lymphs (auto) 1.13, Nucleated RBC % 0 12/11/19 18:50: PT 24.9 H, INR 2.3 12/11/19 18:50: Sodium 135 L, Potassium 3.5, Chloride 101, Carbon Dioxide 26.0, Anion Gap 8, BUN 14, Creatinine 0.98, Estim Creat Clear Calc 48.58, Est GFR (MDRD) Af Amer 72, Est GFR (MDRD) Non-Af 59 L, BUN/Creatinine Ratio 14.3, Glucose 135 H, Calcium 9.2, Total Bilirubin 0.70, AST 13 L, ALT 17, Alkaline Phosphatase 115, Troponin I < 0.015, Total Protein 7.7, Albumin 3.0 L, Globulin 4.7 H, Albumin/Globulin Ratio 0.6 L, Lipase 61 L, TSH 0.61 12/11/19 18:50: Magnesium 1.5 L 12/11/19 19:45: Urine Color Yellow, Urine Clarity Cloudy, Urine pH 6.0, Ur Specific [place] 1.010, Urine Protein 30 H, Urine Glucose (UA) Normal, Urine Ketones Negative, Urine Occult Blood 50 H, Urine Nitrite Positive H, Urine Bilirubin Negative, Urine Urobilinogen Normal, Ur Leukocyte Esterase 500 H, Urine RBC 0-5 SEEN, Urine WBC >100 SEEN, Ur Squamous Epith Cells 0-5 SEEN, Urine Bacteria 3+, Urine Mucus 0 SEEN 12/11/19 22:47: POC Glucose 149 H 12/12/19 06:00: WBC 9.4, RBC 3.16 L, Hgb 10.0 L, Hct 30.3 L, MCV 95.9, MCH 31.6, MCHC 33.0, RDW Std Deviation 41.1, RDW Coeff of Jason 11.8, Plt Count 142 L, MPV 10.1, Immature Gran % (Auto) 0.700, Neut % (Auto) 81.0 H, Lymph % (Auto) 9.2 L, [place] % (Auto) 8.7, Eos % (Auto) 0.2, Baso % (Auto) 0.2, Absolute Neuts (auto) 7.6, Absolute Lymphs (auto) 0.87, Nucleated RBC % 0 12/12/19 06:00: PT 24.2 H, INR 2.2 12/12/19 06:00: Sodium 136, Potassium 3.5, Chloride 106, Carbon Dioxide 26.0, Anion Gap 4 L, BUN 13, Creatinine 0.86, Estim Creat Clear Calc 55.35, Est GFR (MDRD) Af Amer 84, Est GFR (MDRD) Non-Af 69, BUN/Creatinine Ratio 15.2, Glucose 139 H, Calcium 8.4 L 12/12/19 06:00: Magnesium 1.4 L 12/12/19 06:15: POC Glucose 140 H 12/12/19 10:52: POC Glucose 145 H Current Medications Acetaminophen (Tylenol) 650 mg PO Q6H PRN PRN PRN Reason: Pain Score 1-10/Temp > 100.7 F Last Admin: 12/12/19 14:34 Dose: 650 mg Documented by: Al Hydroxide/Mg Hydroxide (Mylanta Ii) 30 ml PO Q6H PRN PRN PRN Reason: Gastric Burning Albuterol Sulfate (Ventolin Aerosols) 0.5 mg INHALATION Q6HWA.RT [facility] Last Admin: 12/12/19 10:55 Dose: 0.5 mg Documented by: Atorvastatin Calcium (Lipitor) 10 mg PO QHS [facility] Last Admin: 12/11/19 22:42 Dose: 10 mg Documented by: Budesonide (Pulmicort Aerosol) 0.5 mg INHALATION Q12H.RT [facility] Last Admin: 12/12/19 10:55 Dose: 0.5 mg Documented by: Flecainide Acetate (Tambocor) 100 mg PO Q12 [facility] Last Admin: 12/12/19 08:14 Dose: 100 mg Documented by: Gabapentin (Neurontin) 300 mg PO QHS [facility] Glucagon () 1 mg IM .X1 PRN PRN Reason: Hypoglycemia Guaifenesin (Robitussin) 20 ml PO Q4H PRN PRN PRN Reason: COUGH Hydralazine HCl (Apresoline Iv) 10 mg IV Q4H PRN PRN PRN Reason: SBP > 160 Sodium Chloride () 1,000 mls @ 100 mls/hr IV .Q10H [facility] Last Admin: 12/12/19 08:15 Dose: 100 mls/hr Documented by: Ceftriaxone Sodium (Rocephin) 1 gm in 50 mls @ 100 mls/hr IV Q24H [facility] Dextrose (Dextrose 10%-Water) 250 mls @ 999 mls/hr IV .Q16M PRN; Protocol PRN Reason: HYPOGLYCEMIA Sodium Chloride () 250 mls @ 15 mls/hr IV .[id number] PRN PRN Reason: Saline Flush Sodium Chloride () 250 mls @ 15 mls/hr IV .[id number] PRN PRN Reason: Additional IVPB Infusion Insulin Human Lispro (Humalog Kwikpen (Bkc)) 0 unit SC ACHS [facility]; Protocol Last Admin: 12/12/19 10:55 Dose: Not Given Documented by: Losartan Potassium (Cozaar) 50 mg PO QHS [facility] Last Admin: 12/11/19 22:42 Dose: 50 mg Documented by: Magnesium Hydroxide (Milk Of Magnesia) 30 ml PO DAILY PRN PRN PRN Reason: Constipation Magnesium Oxide (Mag-Ox 400) 400 mg PO DAILY [facility] Last Admin: 12/12/19 08:14 Dose: 400 mg Documented by: Melatonin (Melatonin) 3 mg PO QHS PRN PRN PRN Reason: INSOMNIA Ondansetron HCl (Zofran) 4 mg IV Q8H PRN PRN PRN Reason: NAUSEA/VOMITING Oxycodone HCl (Oxyir) 5 mg PO Q6H PRN PRN PRN Reason: Pain Score 1-10/10 Prochlorperazine Edisylate (Compazine Iv) 5 mg IV Q4H PRN PRN PRN Reason: Breakthrough nausea/vomiting Psyllium Hydrophilic Mucilloid (Metamucil) 1 packet PO DAILY PRN PRN PRN Reason: Constipation Senna/Docusate Sodium (Senokot-S, Beth-Colace) 2 tablet PO BID PRN PRN PRN Reason: Constipation Sodium Chloride () 10 - 40 ml IV UD PRN PRN Reason: SALINE FLUSH Throat Lozenges (Cepacol Sore Throat Lozenge) 1 lozenge MUCOUS MEM Q2H PRN PRN PRN Reason: SORE THROAT Warfarin Sodium (Coumadin (Pbkc)) 6.5 mg PO MoTu@1700 CLARY; Protocol Warfarin Sodium (Coumadin (Pbkc)) 5 mg PO WeThFr@1700 CLARY; Protocol Warfarin Sodium (Coumadin (Pbkc)) 0.5 mg PO MoTu@1700 CLARY; Protocol STROKE Vital Signs/Narrative: Vital Signs Temp Pulse Resp BP Pulse Ox 12/12/19 14:31 102.4 F H 66 18 136/58 H 95 Medical Necessity - Tobacco Use Smoking Status: Never smoker Tobacco Use: Non-smoker Assessment/Plan All Active Problems (Last Updated 11/09/19 @ 15:32 by Elvia Hall) Encephalopathy acute (Acute) Falls (Acute) UTI (urinary tract infection) (Acute) S/P ablation of atrial flutter (Resolved 04/01/19) Subtherapeutic international normalized ratio (INR) (Acute) Viral URI with cough (Resolved) 74-year-old with multiple comorbidities presents with recurrent falls, confusion and has been treated as acute UTI 1. Acute GNR UTI, on IV ceftriaxone, cytosis is resolved, down to 9.4 from 11.9 On IV ceftriaxone, follow-up on urine cultures 2. Acute metabolic encephalopathy secondary to #1, resolving, patient is currently alert oriented x3 3. COPD, without acute exacerbation, continue with albuterol as needed 4. 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 Paroxysmal atrial fibrillation, continue on flecainide, INR is therapeutic on Coumadin 6. Hypertension, controlled, continue losartan 7. DVT prophylaxis-therapeutic INR on Coumadin Code Visit Inpatient E&M: 62618 Subs Hosp L2
[2019-12-12] MEDS: Warfarin 0.5 MG Tablet PO (17:16)
[2019-12-12 17:21] LABS: Bedside Glucose 156 mg/dL (70-110)
[2019-12-12] MEDS: metFORMIN HCl 1,000 MG Tablet 1000 MG PO (17:21)
[2019-12-12] MEDS: Gabapentin 300 MG Capsule PO (22:09)
[2019-12-12] MEDS: Atorvastatin Calcium 10 MG Tablet PO (22:09)
[2019-12-12] MEDS: Losartan Potassium 50 MG Tablet PO (22:09)
[2019-12-12] MEDS: Ceftriaxone 1 GM/50 ML BAG IV (22:21)
[2019-12-12] MEDS: Ondansetron 4 MG/2 ML Vial IV (22:41)
[2019-12-13] VITALS (12 sets, daily range): BP systolic 84–122; BP diastolic 45–64; PULSE 60–84; RESP 16–20; TEMP 36.4–38.3; O2SAT 93–97
[2019-12-13 01:01] LABS: Bedside Glucose 127 mg/dL (70-110)
[2019-12-13] MEDS: 0.9% Normal Saline 1,000 ML 100 ML IV ×2 (05:08→17:05)
[2019-12-13 05:50] LABS: Absolute Lymphocyte Count 0.82 X10^3/uL (0.83-4.51); Absolute Neutrophil Count 7.2 X10^3/uL (2.0-7.7); Basophil# 0.02 X10^3/uL; Basophil% 0.2 % (0-1); Hematocrit 30.8 % (37-47); Lymphocyte # 0.82 X10^3/ul (4.0); Lymphocyte % 9.4 % (19-41); Mean Corp Hgb Conc 32.5 g/dL (32-36); Mean Corpuscular Hgb 31.4 pg (27.0-32.0); Mean Corpuscular Volume 96.9 fL (81-99); Mean Platelet Vol. 9.9 fl (6.2-12.0); Monocyte# 0.66 X10^3/uL; Monocyte% 7.6 % (0-10); NRBC Flagged by Analyzer 0 % (0-5); Neutrophil # 7.16 X10^3/uL (2.7-7.7); Neutrophil % 82.3 % (47-70); Platelet Count 130 K/mm3 (150-450); RBC Distribution Width CV 11.9 % (11.6-14.6); RBC Distribution Width SD 41.9 fl (35.1-43.9); Red Blood Count 3.18 M/mm3 (4.2-5.4); White Blood Count 8.7 K/mm3 (4.4-11.0)
[2019-12-13 06:11] LABS: ALB/GLOB Ratio 0.6 RATIO (0.9-2.4); AST(SGOT) 15 U/L (15-37); Alanine Aminotransfer ALT/SGPT 13 U/L (13-56); Albumin, Serum 2.1 g/dL (3.2-5.0); Alkaline Phosphatase 71 U/L (45-117); Anion Gap 6 (5-15); BUN 15 mg/dL (7-18); BUN/Creat Ratio 17.9 RATIO (10-20); Chloride 107 mmol/L (98-107); Creatinine, Serum 0.84 mg/dL (0.55-1.02); EST Glomerular Filtration Rate 71 mL/min (>60); Est Glom Filt Rate - Afr Amer 86 mL/min (>60); Estimated Creatinine Clearance 56.67 ml/min; Globulin 3.8 g/dL (2.2-4.2); Glucose 144 mg/dL (74-106); Protein, Total 5.9 g/dL (6.4-8.2); Sodium Level 137 mmol/L (136-145)
[2019-12-13] MEDS: Budesonide Respules 0.5 MG/2 ML AMPUL.NEB. INHALATION ×2 (07:12→18:47)
[2019-12-13] MEDS: Albuterol 2.5 MG/3 ML VIAL.NEB. 0.5 MG INHALATION ×3 (07:12→18:47)
[2019-12-13 07:45] LABS: Bedside Glucose 124 mg/dL (70-110)
[2019-12-13] MEDS: Flecainide 100 MG Tablet PO ×2 (08:43→20:05)
[2019-12-13] MEDS: Magnesium Oxide 400 MG Tablet PO (08:43)
[2019-12-13] MEDS: metFORMIN HCl 1,000 MG Tablet 1000 MG PO ×2 (08:44→17:08)
[2019-12-13 10:47] LABS: Magnesium 1.5 mg/dL (1.6-2.6)
[2019-12-13 11:25] LABS: Bedside Glucose 128 mg/dL (70-110)
--- NOTE | 2019-12-13 12:51 | NURSING ---
Student documentation reviewed.
[2019-12-13] MEDS: Acetaminophen 325 MG Tablet 650 MG PO (15:43)
[2019-12-13 16:00] LABS: Bedside Glucose 131 mg/dL (70-110)
--- NOTE | 2019-12-13 16:42 | PN_ITS ---
Patient Problems: Active and Suspected Problems (Last Updated 11/09/19 @ 15:32 by Elvia Hall) Encephalopathy acute (Acute) Falls (Acute) UTI (urinary tract infection) (Acute) Reason for Visit: Follow-up on Acute UTI Subjective: Patient was seen and examined. She feels much improved. Blood pressures have been low this morning. She is been asymptomatic. Been ambulating the halls with general surgery. Objective: Physical exam: General: Alert, Oriented x3, Cooperative, No apparent distress HEENT: Atraumatic, PERRLA, EOMI, Normocephalic Oral: Moist Mucosa Neck: Supple Lungs: Clear to auscultation, Normal air movement Cardiovascular: Regular rate, Regular Rhythm, Normal S1, Normal S2, No murmurs Abdomen: Bowel Sounds Present, Soft, Non Tender, Non-Distended, No Hepato- splenomegaly Extremities: No edema Skin: Bruises on both knees and dorsum of elbows Musculoskeletal: No Tenderness to Palpation of Joints or Extremities Lymphatic: No Cervical, Supraclavicular, or Inguinal Adenopathy Neurological: Cranial nerves II-XII grossly intact, Neuro grossly intact Psych/Mental Status: Normal Affect, Appropriate Vitals/I&O's: Vital Signs Temp Pulse Resp BP Pulse Ox 100.6 F H 70 18 102/64 96 12/13/19 15:51 12/13/19 15:51 12/13/19 15:51 12/13/19 15:51 12/13/19 15:51 Oxygen Delivery Method Room Air Weight: 90.9 kg Body Mass Index (BMI) 31.8 Finger Stick Blood Glucose 320 Intake and Output for Last 24 Hours 12/11/19 12/12/19 12/13/19 23:59 23:59 23:59 Intake Total 1050 / 1200 2871.67 / 3071.67 2450 / 2450 Output Total 1200 / 1500 800 / 800 Balance 1050 / 1200 1671.67 / 1571.67 1650 / 1650 Microbiology Past 72 Hours 12/11/19 19:45 Urine, Clean Catch Urine Culture - Final Klebsiella pneumoniae sp pneum Laboratory Results 12/12/19 17:08: POC Glucose 156 H 12/12/19 22:56: POC Glucose 127 H 12/13/19 05:25: WBC 8.7, RBC 3.18 L, Hgb 10.0 L, Hct 30.8 L, MCV 96.9, MCH 31.4, MCHC 32.5, RDW Std Deviation 41.9, RDW Coeff of Jason 11.9, Plt Count 130 L, MPV 9.9, Immature Gran % (Auto) 0.500, Neut % (Auto) 82.3 H, Lymph % (Auto) 9.4 L, [place] % (Auto) 7.6, Eos % (Auto) 0.0, Baso % (Auto) 0.2, Absolute Neuts (auto) 7.2, Absolute Lymphs (auto) 0.82 L, Nucleated RBC % 0 12/13/19 05:25: Sodium 137, Potassium 4.0, Chloride 107, Carbon Dioxide 24.0, Anion Gap 6, BUN 15, Creatinine 0.84, Estim Creat Clear Calc 56.67, Est GFR (MDRD) Af Amer 86, Est GFR (MDRD) Non-Af 71, BUN/Creatinine Ratio 17.9, Glucose 144 H, Calcium 8.0 L, Total Bilirubin 0.30, AST 15, ALT 13, Alkaline Phosphatase 71, Total Protein 5.9 L, Albumin 2.1 L, Globulin 3.8, Albumin/Globulin Ratio 0.6 L 12/13/19 05:25: Magnesium 1.5 L 12/13/19 06:55: POC Glucose 124 H 12/13/19 11:14: POC Glucose 128 H 12/13/19 15:54: POC Glucose 131 H Current Medications Acetaminophen (Tylenol) 650 mg PO Q6H PRN PRN PRN Reason: Pain Score 1-10/Temp > 100.7 F Last Admin: 12/13/19 15:43 Dose: 650 mg Documented by: Al Hydroxide/Mg Hydroxide (Mylanta Ii) 30 ml PO Q6H PRN PRN PRN Reason: Gastric Burning Albuterol Sulfate (Ventolin Aerosols) 0.5 mg INHALATION Q6HWA.RT COUNT INCLUDES THE [facility] Last Admin: 12/13/19 13:38 Dose: 0.5 mg Documented by: Atorvastatin Calcium (Lipitor) 10 mg PO QHS COUNT INCLUDES THE [facility] Last Admin: 12/12/19 22:09 Dose: 10 mg Documented by: Budesonide (Pulmicort Aerosol) 0.5 mg INHALATION Q12H.RT COUNT INCLUDES THE [facility] Last Admin: 12/13/19 07:12 Dose: 0.5 mg Documented by: Flecainide Acetate (Tambocor) 100 mg PO Q12H COUNT INCLUDES THE [facility] Last Admin: 12/13/19 08:43 Dose: 100 mg Documented by: Gabapentin (Neurontin) 300 mg PO QHS COUNT INCLUDES THE [facility] Last Admin: 12/12/19 22:09 Dose: 300 mg Documented by: Glimepiride (Amaryl) 2 mg PO DAILY PRN PRN PRN Reason: takes if glucose >200 Glucagon () 1 mg IM .X1 PRN PRN Reason: Hypoglycemia Guaifenesin (Robitussin) 20 ml PO Q4H PRN PRN PRN Reason: COUGH Sodium Chloride () 1,000 mls @ 100 mls/hr IV .Q10H COUNT INCLUDES THE [facility] Last Admin: 12/13/19 05:08 Dose: 100 mls/hr Documented by: Ceftriaxone Sodium (Rocephin) 1 gm in 50 mls @ 100 mls/hr IV Q24H COUNT INCLUDES THE [facility] Last Infusion: 12/12/19 23:00 Dose: Infused Documented by: Dextrose (Dextrose 10%-Water) 250 mls @ 999 mls/hr IV .Q16M PRN; Protocol PRN Reason: HYPOGLYCEMIA Sodium Chloride () 250 mls @ 15 mls/hr IV .[id number] PRN PRN Reason: Saline Flush Sodium Chloride () 250 mls @ 15 mls/hr IV .[id number] PRN PRN Reason: Additional IVPB Infusion Insulin Human Lispro (Humalog Kwikpen (Bkc)) [facility]; Protocol Last Admin: 12/13/19 15:54 Dose: Not Given Documented by: Losartan Potassium (Cozaar) 25 mg PO QHS COUNT INCLUDES THE [facility] Magnesium Hydroxide (Milk Of Magnesia) 30 ml PO DAILY PRN PRN PRN Reason: Constipation Magnesium Oxide (Mag-Ox 400) 400 mg PO DAILY COUNT INCLUDES THE [facility] Last Admin: 12/13/19 08:43 Dose: 400 mg Documented by: Melatonin (Melatonin) 3 mg PO QHS PRN PRN PRN Reason: INSOMNIA Metformin HCl (Glucophage) 1,000 mg PO BIDCM COUNT INCLUDES THE [facility] Last Admin: 12/13/19 08:44 Dose: 1,000 mg Documented by: Ondansetron HCl (Zofran) 4 mg IV Q8H PRN PRN PRN Reason: NAUSEA/VOMITING Last Admin: 12/12/19 22:41 Dose: 4 mg Documented by: Oxycodone HCl (Oxyir) 5 mg PO Q6H PRN PRN PRN Reason: Pain Score 1-10/10 Prochlorperazine Edisylate (Compazine Iv) 5 mg IV Q4H PRN PRN PRN Reason: Breakthrough nausea/vomiting Psyllium Hydrophilic Mucilloid (Metamucil) 1 packet PO DAILY PRN PRN PRN Reason: Constipation Senna/Docusate Sodium (Senokot-S, Beth-Colace) 2 tablet PO BID PRN PRN PRN Reason: Constipation Sodium Chloride () 10 - 40 ml IV UD PRN PRN Reason: SALINE FLUSH Throat Lozenges (Cepacol Sore Throat Lozenge) 1 lozenge MUCOUS MEM Q2H PRN PRN PRN Reason: SORE THROAT Warfarin Sodium (Coumadin (Pbkc)) 6.5 mg PO MoTu@1700 CLARY; Protocol Last Admin: 12/12/19 17:16 Dose: 6 mg Documented by: Warfarin Sodium (Coumadin (Pbkc)) 5 mg PO WeThFr@1700 CLARY; Protocol Warfarin Sodium (Coumadin (Pbkc)) 0.5 mg PO MoTu@1700 CLARY; Protocol Last Admin: 12/12/19 17:16 Dose: 0.5 mg Documented by: STROKE Vital Signs/Narrative: Vital Signs Temp Pulse Resp BP Pulse Ox 12/13/19 15:51 100.6 F H 70 18 102/64 96 12/13/19 13:35 81 18 12/13/19 12:54 98.1 F 66 18 97/64 96 Medical Necessity - Tobacco Use Smoking Status: Never smoker Tobacco Use: Non-smoker Assessment/Plan All Active Problems (Last Updated 11/09/19 @ 15:32 by Elvia Hall) Encephalopathy acute (Acute) Falls (Acute) UTI (urinary tract infection) (Acute) S/P ablation of atrial flutter (Resolved 04/01/19) Subtherapeutic international normalized ratio (INR) (Acute) Viral URI with cough (Resolved) 74-year-old with multiple comorbidities presents with recurrent falls, confusion and has been treated as acute UTI 1. Acute Klebsiella UTI, on IV ceftriaxone (day 3) Continue on IV antibiotics, 2. Acute metabolic encephalopathy secondary to #1, resolved, patient is c urrently alert oriented x3 3. COPD, without acute exacerbation, continue with albuterol as needed 4. 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 Paroxysmal atrial fibrillation, continue on flecainide, INR is therapeutic on Coumadin 6. Hypertension, controlled, continue losartan 7. DVT prophylaxis-therapeutic INR on Coumadin Code Visit Inpatient E&M: 63459 Subs Hosp L2
[2019-12-13] MEDS: Warfarin 0.5 MG Tablet PO (17:07)
[2019-12-13] MEDS: Gabapentin 300 MG Capsule PO (22:49)
[2019-12-13] MEDS: Atorvastatin Calcium 10 MG Tablet PO (22:49)
[2019-12-13] MEDS: Ceftriaxone 1 GM/50 ML BAG IV (22:52)
[2019-12-13 23:16] LABS: Bedside Glucose 113 mg/dL (70-110)
[2019-12-14] MEDS: 0.9% Normal Saline 1,000 ML 100 ML IV (03:26)
[2019-12-14 03:30] VITALS: BP 118/66; PULSE 63; RESP 18; TEMP 37.9; O2SAT 95
[2019-12-14 06:41] LABS: Bedside Glucose 105 mg/dL (70-110)
[2019-12-14 06:56] LABS: International Normalized Ratio 2.8; Prothrombin Time (Protime)PT. 29.3 SECONDS (11.7-14.9)
[2019-12-14 07:08] VITALS: PULSE 62; RESP 18; O2SAT 95
[2019-12-14] MEDS: Budesonide Respules 0.5 MG/2 ML AMPUL.NEB. INHALATION (07:08)
[2019-12-14] MEDS: Albuterol 2.5 MG/3 ML VIAL.NEB. 0.5 MG INHALATION (07:08)
[2019-12-14 07:11] LABS: Anion Gap 6 (5-15); BUN 15 mg/dL (7-18); BUN/Creat Ratio 18.1 RATIO (10-20); Calcium,Total 7.8 mg/dL (8.5-10.1); Chloride 108 mmol/L (98-107); Creatinine, Serum 0.83 mg/dL (0.55-1.02); EST Glomerular Filtration Rate 72 mL/min (>60); Est Glom Filt Rate - Afr Amer 87 mL/min (>60); Estimated Creatinine Clearance 57.36 ml/min; Glucose 113 mg/dL (74-106); Sodium Level 137 mmol/L (136-145)
[2019-12-14] MEDS: Flecainide 100 MG Tablet PO (07:39)
[2019-12-14] MEDS: metFORMIN HCl 1,000 MG Tablet 1000 MG PO (07:39)
[2019-12-14 07:41] VITALS: BP 101/60; PULSE 61; RESP 18; TEMP 36.8; O2SAT 97
[2019-12-14 07:42] VITALS: RESP 18
--- NOTE | 2019-12-14 09:07 | DCINST_ITS ---
- Discharge Diagnoses Current Active Problems: Current Active and Chronic Problems (Last Updated 11/09/19 @ 15:32 by Elvia Hall) Encephalopathy acute (Acute) Falls (Acute) UTI (urinary tract infection) (Acute) Reason(s) for Visit for Discharge Instructions: Falls, UTI You will use the following diet at home:: Calorie/Carbohydrate Controlled (specify 1200, 1400, etc), Cardiac Your food should be the consistency of: Regular Your liquids should be the consistency of: Regular/Thin Discharge Activity: Return to Normal Activity Instructions: Taking Your Blood Pressure, Eating a Low-Salt Diet, Understanding Urinary Tract Infections (UTIs), Preventing Falls in the Home, Preventing Falls: Making Changes in Your Living Space, Exercises to Prevent Falls Additional Instructions: Complete your antibiotics. Continue to hydrate himself. You have been taken off your blood pressure medications. Continue to measure ypour BP daily and keep a log of it. Resume your BP medications if your BP gets above 130/90. Allergies/Adverse Reactions: Allergies amoxicillin Allergy (Severe, Verified 12/11/19 18:29) Hives aspirin Allergy (Severe, Verified 12/11/19 18:29) Hives, SOB Sulfa (Sulfonamide Antibiotics) Allergy (Severe, Verified 12/11/19 18:29) Hives Medications to take at Discharge magnesium oxide 400 mg PO DAILY cap 11/18/17 metformin 500 mg tablet 1,000 mg PO BID tab 02/13/18 glimepiride 2 mg tablet 2 mg PO DAILY 10/11/18 budesonide-formoterol HFA 160 mcg-4.5 mcg/actuation aerosol inhaler 2 puff INHALATION BID 11/04/18 Albuterol IH (ProAir) [Proair Hfa] 1 puff INHALATION Q4H PRN PRN 11/18/18 Oxycodone HCl/Acetaminophen [Percocet 5-325] 1 tab PO Q6H PRN PRN 11/18/18 Warfarin [Coumadin] 5 mg PO SUMOTUTHFRSA 11/18/18 Warfarin [Coumadin] 6.5 mg PO WE 02/04/19 Atorvastatin Calcium 10 mg PO QHS 12/11/19 Flecainide Acetate 100 mg PO Q12H 12/11/19 Gabapentin [Neurontin] 300 mg PO QHS 12/11/19 Cefdinir [Omnicef [equiv]] 300 mg PO Q12H 4 Days #8 cap 12/14/19 The following prescriptions were given: Cefdinir [Omnicef [equiv]] 300 mg PO Q12H 4 Days #8 cap Transmission Status: Pending to [facility] - [place] Primary Care Physician: Ro Reed MD [Primary Care Provider] - Please follow up with your Primary Care Physician in: within 1-2 weeks Test Results: Test results from this visit will be discussed in further detail at your follow- up appointment, if applicable. Proposed Discharge Date: 12/14/19
--- NOTE | 2019-12-14 09:10 | DS.PCM_ITS ---
Discharge Date and Diagnosis Date of Admission: 12/11/19 Date of Discharge: 12/14/19 - Primary Discharge Diagnosis Active and Suspected Problems (Last Updated 11/09/19 @ 15:32 by Elvia Hall) Acute metabolic encephalopathy Acute Klebsiella UTI Relative hypotension - Secondary Discharge Diagnosis Chronic Problems (Last Updated 11/09/19 @ 15:32 by Elvia Hall) Abnormal EKG (Chronic) Ulcer of right lower extremity with fat layer exposed (Chronic) Presence of permanent cardiac pacemaker (Chronic 04/01/19) Implant @ [facility] by Dr. 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 No intracranial hemorrhage. Electronically Signed: Tomás Arnold MD at 19:27 EST Tel , Service support , Chest X-Ray 12/11/19 18:45 IMPRESSION: 1. Interval placement of left subclavian dual-lead pacemaker with no pneumothorax. 2. Cardiomegaly. 3. No active pulmonary disease. Electronically Signed: Tomás Arnold MD at 19:01 EST Tel , Service support , None Operations: None Procedures: None Summary of Care Provided: 74-year-old female with past medical history of type II DM, chronic back pain, hypertension who was recently treated for UTI comes in with urinary frequency, chills, and urine incontinent. Patient was also said to be confused, and fell 3 times at home. On admission, she had stable vitals, abrasions on her elbow. Her white cell count 11.9. UA was suggestive of UTI. Urine cultures grew Kl ebsiella pneumoniae. Patient was started on IV ceftriaxone and discharged on oral cefdinir to complete 1 week of treatment. During her hospital stay, patient's blood pressure was low, and she received IV fluid boluses. Her home losartan was held. She was asked to check her blood pressure every day and resume her blood pressure medication if her blood pressure goes above 130/90. She was highly recommended to follow-up with her primary care doctor within a week to have her blood pressures evaluated and her medication addressed. She was given a [facility]. Subjective: On the day of discharge, patient was seen and examined. She felt much improved. Eyes any dysuria or frequency of fever or chills. Objective: Physical exam: General: Alert, Oriented x3, Cooperative, No apparent distress HEENT: Atraumatic, PERRLA, EOMI, Normocephalic Oral: Moist Mucosa Neck: Supple Lungs: Clear to auscultation, Normal air movement Cardiovascular: Regular rate, Regular Rhythm, Normal S1, Normal S2, No murmurs Abdomen: Bowel Sounds Present, Soft, Non Tender, Non-Distended, No Hepato- splenomegaly Extremities: No edema Skin: Bruises on both knees and dorsum of elbows Musculoskeletal: No Tenderness to Palpation of Joints or Extremities Lymphatic: No Cervical, Supraclavicular, or Inguinal Adenopathy Neurological: Cranial nerves II-XII grossly intact, Neuro grossly intact Psych/Mental Status: Normal Affect, Appropriate - Physical Exam Vitals/I&O's: Vital Signs Temp Pulse Resp BP Pulse Ox 98.2 F 61 18 101/60 97 12/14/19 07:41 12/14/19 07:41 12/14/19 07:42 12/14/19 07:41 12/14/19 07:41 Oxygen Delivery Method Room Air Weight: 90.9 kg Body Mass Index (BMI) 31.8 Finger Stick Blood Glucose 320 Intake and Output for Last 24 Hours 12/12/19 12/13/19 12/14/19 23:59 23:59 23:59 Intake Total 2871.67 / 3071.67 4784 / 4784 366.67 / 366.67 Output Total 1200 / 1500 1600 / 1600 950 / 950 Balance 1671.67 / 1571.67 3184 / 3184 -583.33 / -583.33 Microbiology Past 72 Hours 12/11/19 19:45 Urine, Clean Catch Urine Culture - Final Klebsiella pneumoniae sp pneum Laboratory Results 12/13/19 05:25: Magnesium 1.5 L 12/13/19 11:14: POC Glucose 128 H 12/13/19 15:54: POC Glucose 131 H 12/13/19 22:48: POC Glucose 113 H 12/14/19 06:16: PT 29.3 H, INR 2.8 12/14/19 06:16: Sodium 137, Potassium 4.0, Chloride 108 H, Carbon Dioxide 23.0, Anion Gap 6, BUN 15, Creatinine 0.83, Estim Creat Clear Calc 57.36, Est GFR (MDRD) Af Amer 87, Est GFR (MDRD) Non-Af 72, BUN/Creatinine Ratio 18.1, Glucose 113 H, Calcium 7.8 L 12/14/19 06:36: POC Glucose 105 Current Medications Acetaminophen (Tylenol) 650 mg PO Q6H PRN PRN PRN Reason: Pain Score 1-10/Temp > 100.7 F Last Admin: 12/13/19 15:43 Dose: 650 mg Documented by: Al Hydroxide/Mg Hydroxide (Mylanta Ii) 30 ml PO Q6H PRN PRN PRN Reason: Gastric Burning Albuterol Sulfate (Ventolin Aerosols) 0.5 mg INHALATION Q6HWA.RT [facility] Last Admin: 12/14/19 07:08 Dose: 0.5 mg Documented by: Atorvastatin Calcium (Lipitor) 10 mg PO QHS [facility] Last Admin: 12/13/19 22:49 Dose: 10 mg Documented by: Budesonide (Pulmicort Aerosol) 0.5 mg INHALATION Q12H.RT [facility] Last Admin: 12/14/19 07:08 Dose: 0.5 mg Documented by: Flecainide Acetate (Tambocor) 100 mg PO Q12H [facility] Last Admin: 12/14/19 07:39 Dose: 100 mg Documented by: Gabapentin (Neurontin) 300 mg PO QHS [facility] Last Admin: 12/13/19 22:49 Dose: 300 mg Documented by: Glimepiride (Amaryl) 2 mg PO DAILY PRN PRN PRN Reason: takes if glucose >200 Glucagon () 1 mg IM .X1 PRN PRN Reason: Hypoglycemia Guaifenesin (Robitussin) 20 ml PO Q4H PRN PRN PRN Reason: COUGH Sodium Chloride () 1,000 mls @ 100 mls/hr IV .Q10H [facility] Last Admin: 12/14/19 03:26 Dose: 100 mls/hr Documented by: Ceftriaxone Sodium (Rocephin) 1 gm in 50 mls @ 100 mls/hr IV Q24H [facility] Last Infusion: 12/13/19 23:46 Dose: Infused Documented by: Dextrose (Dextrose 10%-Water) 250 mls @ 999 mls/hr IV .Q16M PRN; Protocol PRN Reason: HYPOGLYCEMIA Sodium Chloride () 250 mls @ 15 mls/hr IV .[id number] PRN PRN Reason: Saline Flush Sodium Chloride () 250 mls @ 15 mls/hr IV .[id number] PRN PRN Reason: Additional IVPB Infusion Insulin Human Lispro (Humalog Kwikpen (Bkc)) [facility]; Protocol Last Admin: 12/14/19 06:37 Dose: Not Given Documented by: Losartan Potassium (Cozaar) 25 mg PO QHS [facility] Last Admin: 12/13/19 22:49 Dose: Not Given Documented by: Magnesium Hydroxide (Milk Of Magnesia) 30 ml PO DAILY PRN PRN PRN Reason: Constipation Magnesium Oxide (Mag-Ox 400) 400 mg PO DAILY [facility] Last Admin: 12/13/19 08:43 Dose: 400 mg Documented by: Melatonin (Melatonin) 3 mg PO QHS PRN PRN PRN Reason: INSOMNIA Metformin HCl (Glucophage) 1,000 mg PO BIDCM [facility] Last Admin: 12/14/19 07:39 Dose: 1,000 mg Documented by: Ondansetron HCl (Zofran) 4 mg IV Q8H PRN PRN PRN Reason: NAUSEA/VOMITING Last Admin: 12/12/19 22:41 Dose: 4 mg Documented by: Oxycodone HCl (Oxyir) 5 mg PO Q6H PRN PRN PRN Reason: Pain Score 1-10/10 Prochlorperazine Edisylate (Compazine Iv) 5 mg IV Q4H PRN PRN PRN Reason: Breakthrough nausea/vomiting Psyllium Hydrophilic Mucilloid (Metamucil) 1 packet PO DAILY PRN PRN PRN Reason: Constipation Senna/Docusate Sodium (Senokot-S, Beth-Colace) 2 tablet PO BID PRN PRN PRN Reason: Constipation Sodium Chloride () 10 - 40 ml IV UD PRN PRN Reason: SALINE FLUSH Throat Lozenges (Cepacol Sore Throat Lozenge) 1 lozenge MUCOUS MEM Q2H PRN PRN PRN Reason: SORE THROAT Warfarin Sodium (Coumadin (Pbkc)) 6.5 mg PO MoTu@1700 CLARY; Protocol Last Admin: 12/13/19 17:07 Dose: 6 mg Documented by: Warfarin Sodium (Coumadin (Pbkc)) 5 mg PO WeThFr@1700 CLARY; Protocol Warfarin Sodium (Coumadin (Pbkc)) 0.5 mg PO MoTu@1700 CLARY; Protocol Last Admin: 12/13/19 17:07 Dose: 0.5 mg Documented by: Discharge Diet: Low fat/ Low Cholesterol, 2000 mg Sodium Diet Discharge Activity: Return to Normal Activity Home Medications: Medications to take at Discharge magnesium oxide 400 mg PO DAILY cap 11/18/17 metformin 500 mg tablet 1,000 mg PO BID tab 02/13/18 glimepiride 2 mg tablet 2 mg PO DAILY 10/11/18 budesonide-formoterol HFA 160 mcg-4.5 mcg/actuation aerosol inhaler 2 puff INHALATION BID 11/04/18 Albuterol IH (ProAir) [Proair Hfa] 1 puff INHALATION Q4H PRN PRN 11/18/18 Oxycodone HCl/Acetaminophen [Percocet 5-325] 1 tab PO Q6H PRN PRN 11/18/18 Warfarin [Coumadin] 5 mg PO SUMOTUTHFRSA 11/18/18 Warfarin [Coumadin] 6.5 mg PO WE 02/04/19 Atorvastatin Calcium 10 mg PO QHS 12/11/19 Flecainide Acetate 100 mg PO Q12H 12/11/19 Gabapentin [Neurontin] 300 mg PO QHS 12/11/19 Cefdinir [Omnicef [equiv]] 300 mg PO Q12H 4 Days #8 cap 12/14/19 Following Prescrptions Were Given to Patient: Cefdinir [Omnicef [equiv]] 300 mg PO Q12H 4 Days #8 cap Transmission Status: Received by [facility] - [place] Primary Care Physician: Ro Reed MD [Primary Care Provider] - Please follow up with your Primary Care Physician in: within 1-2 weeks Patient Instructions: Understanding Urinary Tract Infections (UTIs), Eating a Low-Salt Diet, Taking Your Blood Pressure, Preventing Falls in the Home, Preventing Falls: Making Changes in Your Living Space, Exercises to Prevent Falls Disposition: Home Minutes spent on discharge:: 40 Patient Condition:: Stable Medical Necessity - Tobacco Use Smoking Status: Never smoker Tobacco Use: Non-smoker Meaningful Use Info Meaningful Use Diagnoses (Choose all that apply): None applicable Code Visit Inpatient E&M: 10894 Disch Hosp
[2019-12-14] MEDS: Magnesium Oxide 400 MG Tablet PO (09:52)
[2019-12-14 11:10] VITALS: BP 105/75; PULSE 74; RESP 18; TEMP 36.7; O2SAT 99
--- NOTE | 2019-12-15 14:01 | CASEMGMT ---
VLAD TEMPLE Discharge Follow-Up Phone Call. Debby: 12 Strata: 3 Discharge Date: 12/14/19 Adm Dx: Falls, Encephalopathy, UTI Call to pt to inquire about how she has been doing since being discharged from the hospital. She states, Not too bad. I'm taking it easy. My kids stayed with me yesterday all day. 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 VLAD TEMPLE instructed pt on importance of taking antibiotic through completion and she voices understanding. She states she got an appt with the CLEANING SPECIALIST for Dr Reed today at 3 PM. She states she plans to start OP therapy @ [facility] within the next couple of days. She denies having any questions about the discharge instructions or medications. VLAD TEMPLE thanked pt for choosing [facility]. Grabiel ALMEIDA RN, CM
== END 2019-12-14 11:29 | disposition home or self-care (01) | DRG 689 ==
LOC: ED 18:57 → MS3 20:57
PROVIDERS: Admitting Provider Family Medicine; Emergency Provider Emergency Medicine; PCP Internal Medicine; Visit Provider Internal Medicine
DX: N39.0 Urinary tract infection, site not specified (principal); G93.41 Metabolic encephalopathy; I48.0 Paroxysmal atrial fibrillation; I10 Essential (primary) hypertension; S00.03XA Contusion of scalp, initial encounter; W18.30XA Fall on same level, unspecified, initial encounter; Y92.022 Bathroom in mobile home as the place of occurrence of the external cause; S50.312A Abrasion of left elbow, initial encounter; M54.9 Dorsalgia, unspecified; G89.29 Other chronic pain; E78.5 Hyperlipidemia, unspecified; R29.6 Repeated falls; E11.40 Type 2 diabetes mellitus with diabetic neuropathy, unspecified; J44.9 Chronic obstructive pulmonary disease, unspecified; Z79.01 Long term (current) use of anticoagulants; Z95.0 Presence of cardiac pacemaker; Z79.84 Long term (current) use of oral hypoglycemic drugs; B96.1 Klebsiella pneumoniae [K. pneumoniae] as the cause of diseases classified elsewhere; I95.9 Hypotension, unspecified; E66.9 Obesity, unspecified; Z68.31 Body mass index [BMI] 31.0-31.9, adult; I27.29 Other secondary pulmonary hypertension; G47.33 Obstructive sleep apnea (adult) (pediatric)
CPT/HCPCS: 36415; 70450; 71045; 80048; 80053; 81001; 82962; 83690; 83735; 84443; 84484; 85025; 85610; 87077; 87086; 87088; 87186; 93005; 94640; 97110; 97162; 97166; 97530; 97535; 99251; 99285; J7030; J7040; J7050; G0463; J2405

== ENCOUNTER 2019-12-23 10:32 | Outpatient (RCR) | payer MEDICARE, SELFPAY ==
[2019-11-26 00:47] VITALS: BMI 30.7
[2019-12-11 21:30] VITALS: BMI 31.8
[2019-12-15 17:35] LABS: Prothrombin Time (Protime)PT. 37.4 SECONDS (11.7-14.9)
[2019-12-15 18:20] LABS: International Normalized Ratio 3.8
[2019-12-23 12:24] LABS: Prothrombin Time (Protime)PT. 51.6 SECONDS (11.7-14.9)
[2019-12-23 12:50] LABS: International Normalized Ratio 5.6
== END 2019-12-23 18:00 | disposition home or self-care (01) ==
LOC: LAB 10:32
PROVIDERS: Family Provider Internal Medicine; PCP Internal Medicine; Referring Provider Internal Medicine Cardiovascular Disease; Visit Provider Internal Medicine Cardiovascular Disease
DX: I48.92 Unspecified atrial flutter (principal); Z79.01 Long term (current) use of anticoagulants
CPT/HCPCS: 36415; 85610

== ENCOUNTER 2020-01-13 10:02 | Outpatient (RCR) | payer MEDICARE, SELFPAY ==
[2019-12-11 21:30] VITALS: BMI 31.8
[2019-12-26 14:29] LABS: International Normalized Ratio 2.7; Prothrombin Time (Protime)PT. 28.6 SECONDS (11.7-14.9)
[2020-01-06 15:28] LABS: International Normalized Ratio 1.4; Prothrombin Time (Protime)PT. 17.3 SECONDS (11.7-14.9)
[2020-01-13 10:31] LABS: Prothrombin Time (Protime)PT. 22.6 SECONDS (11.7-14.9)
== END 2020-01-13 18:00 | disposition home or self-care (01) ==
LOC: LAB 10:02
PROVIDERS: Family Provider Internal Medicine; PCP Internal Medicine; Referring Provider Internal Medicine Cardiovascular Disease; Visit Provider Internal Medicine Cardiovascular Disease
DX: I48.92 Unspecified atrial flutter (principal); Z79.01 Long term (current) use of anticoagulants
CPT/HCPCS: 36415; 85610

== ENCOUNTER 2020-01-30 09:21 | Outpatient (RCR) | payer MEDICARE, SELFPAY ==
[2019-12-11 21:30] VITALS: BMI 31.8
[2020-01-30 10:41] LABS: International Normalized Ratio 1.9; Prothrombin Time (Protime)PT. 21.5 SECONDS (11.7-14.9)
== END 2020-02-23 18:00 | disposition home or self-care (01) ==
LOC: LAB 09:21
PROVIDERS: Family Provider Internal Medicine; PCP Internal Medicine; Referring Provider Internal Medicine Cardiovascular Disease; Visit Provider Internal Medicine Cardiovascular Disease
DX: I48.92 Unspecified atrial flutter (principal); Z79.01 Long term (current) use of anticoagulants
CPT/HCPCS: 36415; 85610

== ENCOUNTER 2020-02-27 10:50 | Outpatient (RCR) | payer MEDICARE, SELFPAY ==
[2019-12-11 21:30] VITALS: BMI 31.8
[2020-02-27 11:58] LABS: International Normalized Ratio 2.3; Prothrombin Time (Protime)PT. 24.5 SECONDS (11.7-14.9)
== END 2020-02-27 18:00 | disposition home or self-care (01) ==
LOC: LAB 10:50
PROVIDERS: Family Provider Internal Medicine; PCP Internal Medicine; Referring Provider Internal Medicine Cardiovascular Disease; Visit Provider Internal Medicine Cardiovascular Disease
DX: I48.92 Unspecified atrial flutter (principal); Z79.01 Long term (current) use of anticoagulants
CPT/HCPCS: 36415; 85610

== ENCOUNTER 2020-03-12 18:36 | Inpatient (IN) | payer MEDICARE, SELFPAY ==
[2019-12-11 21:30] VITALS: BMI 31.8
[2020-03-12] VITALS (8 sets, daily range): BP systolic 122–193; BP diastolic 76–94; PULSE 60–77; RESP 18–19; TEMP 37.1–39.1; O2SAT 93–97; BMI 29.0
--- NOTE | 2020-03-12 19:40 | EKG12_ITS ---
Test Reason : FEVER Blood Pressure : / mmHG Vent. Rate : 063 BPM Atrial Rate : 227 BPM P-R Int : 000 ms QRS Dur : 094 ms QT Int : 432 ms P-R-T Axes : 000 -88 060 degrees QTc Int : 442 ms Suspect unspecified pacemaker failure Atrial flutter with variable A-V block with premature ventricular or aberrantly conducted complexes Left anterior fascicular block Nonspecific ST abnormality Abnormal ECG Confirmed by ALEXANDRA NICOLE, TRINH ([id number]), restaurant expeditor YUMIKO BETTENCOURT ([id number]) on 03/20/2020 2:50:07 PM Referred By: BENJAMIN Confirmed By:TRINH MORRIS MD
--- NOTE | 2020-03-12 19:41 | CT_ITS ---
STUDY: CT ABDOMEN AND PELVIS WITHOUT CONTRAST REASON FOR EXAM: Female, 75 years old. N/V/FEVER and LLQ pain. Prior appendectomy. Hx of diabetes andd HTN RADIATION DOSAGE (If Supplied By Facility): CTDIvol = ( 22.35 ) mGy, DLP = ( 1205.841 ) mGycm TECHNIQUE: Transaxial images were obtained from the dome of the diaphragm to the symphysis pubis without oral contrast, and without intravenous contrast. Sagittal and coronal images were reconstructed. Individualized dose optimization techniques were used for this CT. COMPARISON: CT abdomen and pelvis 08/14/2017. FINDINGS: There is cardiomegaly. There is cardiac pacemaker. There are mild bibasilar pulmonary opacities. Liver is small in size and has nodularity nodularity to the surface of the liver. There is new gallbladder distention. Normal spleen. There is atrophy of the pancreas. There are abdominal varices. Normal bilateral adrenal glands. There is stable severe right hydronephrosis. There is stable severe distention of the right renal pelvis.. There is mild distention of the more distal right ureter unchanged. There is new moderate left hydronephrosis and mild left hydroureter. Normal visualized stomach. Normal small intestine. There is colonic diverticulosis no evidence for diverticulitis. The appendix is visualized and appears normal. There are calcified pills within the colon. Normal abdominal aorta. Normal inferior vena cava. Normal retroperitoneum. There is moderate distention of the bladder. Normal abdominal wall. Normal osseous structures. CT/Abdomen/Pelvis W IV Cont ONLY IMPRESSION: stable severe right hydronephrosis. There is stable significant distention of the right renal pelvis.. The findings are suspicious for UPJ obstruction or partial obstruction. There is mild distention of the more distal right ureter unchanged. There is new moderate left hydronephrosis and mild left hydroureter. There is moderate distention of the bladder. Bladder outlet obstruction cannot be excluded. Delayed imaging could be performed to evaluate for ureteral obstruction. Retrograde study could also be performed. Stable cardiomegaly, cardiac pacemaker Mild bibasilar pulmonary opacities hypoventilatory changes versus infectious cellulitis, atypical viral pneumonia cannot be excluded. Likely hepatic cirrhosis mild distention of the gallbladder which could be further evaluated with ultrasound Electronically Signed: Blake Brewer, at 22:12 EDT Tel , Service support ,
--- NOTE | 2020-03-12 20:06 | ED.DCSUM_ITS ---
- ER Visit Summary Date of Service: 03/12/20 Chief Complaint: Fever History of Present Illness: The patient is a 75 F presenting with fever and generalized weakness. She states this started today. She has had nausea and vomiting at home. She denies diarrhea. She complains of myalgias. She denies shortness of breath or cough. Denies urinary complaints. Denies sick contacts. Physical Examination: Vitals are stable. Temperature 102.3. Alert no acute distress. HEENT exam is unremarkable. Neck is supple. Lungs are clear and equal bilaterally. Heart is regular rate and rhythm. Abdomen is soft left lower quadrant tenderness with no rebound or guarding Extremities are unremarkable. Skin is warm and dry. No focal neurologic deficit. Remainder of exam is unremarkable. Emergency Department Course and Treatment: Patient was given IV fluids, Tylenol, Zofran. Chest x-ray shows mild cardiomegaly. Cardiac pacemaker Mild bibasilar pulmonary opacities hypoventilatory changes versus infectious alveolitis. Atypical viral pneumonia cannot be excluded. CT abdomen pelvis shows stable severe right hydronephrosis. There is stable significant distention of the right renal pelvis.. The findings are suspicious for UPJ obstruction or partial obstruction. There is mild distention of the more distal right ureter unchanged. There is new moderate left hydronephrosis and mild left hydroureter. There is moderate distention of the bladder. Bladder outlet obstruction cannot be excluded. Delayed imaging could be performed to evaluate for ureteral obstruction. Retrograde study could also be performed. Stable cardiomegaly, cardiac pacemaker. Mild bibasilar pulmonary opacities hypoventilatory changes versus infectious alveolitis, atypical viral pneumonia cannot be excluded. Likely hepatic cirrhosis. mild distention of the gallbladder which could be further evaluated with ultrasound. Patient has no right upper quadrant tenderness on exam. CBC shows white count 14.9, platelet 98. Chemistries show sodium 132, glucose 199. Liver enzymes show total bili 1.3. Lipase is normal. INR 2.2. Urinalysis unremarkable. Troponin is negative. EKG is sinus rate of 63 with no acute changes. On reevaluation, patient continues to complain of not feeling well. Discussed with the hospitalist for admission. Disposition: Admission Impression: Suspected Covid, Left hydronephrosis, Febrile illness This note was generated with Hashtrackation software. It may contain incorrect words, spelling, and punctuation that were not noted in review of the chart prior to signing ED Disposition - Plan for ED Patient: Referrals: Ro Reed MD [Primary Care Provider] -
[2020-03-12] MEDS: Acetaminophen 500 MG Tablet 1000 MG PO (20:16)
[2020-03-12 20:34] LABS: Bacteria 0 SEEN /hpf (None Seen); Mucous, Urine 0 SEEN /hpf (<or=2+); Red Blood Cells-Urine 0 SEEN /hpf (0-5); Squamous Epithelial Cells - UA 0 SEEN /hpf (5-10)
[2020-03-12 20:35] LABS: Color, Urine Yellow (Yellow); Glucose, Dipstick Normal (Normal); Ketone-Dipstick 5 mg/dl (Negative); Leukocyte Esterase-Dipstick Negative /ul (Negative); Nitrite-Dipstick Negative (Negative); Occult Blood-Urine 10 /ul (Negative); Protein-Dipstick 30 mg/dl (Negative); Urine Bilirubin Dipstick Negative (Negative); Urine Clarity Clear (Clear); Urine Urobilinogen Normal (Normal)
[2020-03-12] MEDS: 0.9% Normal Saline 1,000 ML 1000 ML IV (20:50)
[2020-03-12] MEDS: Ondansetron 4 MG/2 ML Vial IV (20:51)
[2020-03-12 20:55] LABS: White Blood Cells 0-5 SEEN /hpf (0-5)
[2020-03-12 20:57] LABS: Absolute Lymphocyte Count 0.54 X10^3/uL (0.83-4.51); Absolute Neutrophil Count 13.4 X10^3/uL (2.0-7.7); Basophil# 0.03 X10^3/uL; Basophil% 0.2 % (0-1); Eosinophil# 0.06 X10^3/uL; Eosinophils% 0.4 % (0-5); Hematocrit 44.1 % (37-47); Hemoglobin 15.2 g/dL (12.0-15.0); Lymphocyte # 0.54 X10^3/ul (4.0); Lymphocyte % 3.6 % (19-41); Mean Corp Hgb Conc 34.5 g/dL (32-36); Mean Corpuscular Hgb 32.2 pg (27.0-32.0); Mean Corpuscular Volume 93.4 fL (81-99); Mean Platelet Vol. 9.3 fl (6.2-12.0); Monocyte# 0.75 X10^3/uL; NRBC Flagged by Analyzer 0 % (0-5); Neutrophil # 13.42 X10^3/uL (2.7-7.7); Neutrophil % 90.1 % (47-70); POSITIVE COUNT YES; POSITIVE DIFFERENTIAL YES; POSITIVE MORPHOLOGY YES; Platelet Count 98 K/mm3 (150-450); RBC Distribution Width CV 11.9 % (11.6-14.6); RBC Distribution Width SD 41.1 fl (35.1-43.9); Red Blood Count 4.72 M/mm3 (4.2-5.4); White Blood Count 14.9 K/mm3 (4.4-11.0)
[2020-03-12 21:01] LABS: Differential Indicated SCAN CRITERIA MET
[2020-03-12 21:09] LABS: International Normalized Ratio 2.2; Prothrombin Time (Protime)PT. 24.4 SECONDS (11.7-14.9)
[2020-03-12 21:14] LABS: ALB/GLOB Ratio 0.9 RATIO (0.9-2.4); AST(SGOT) 35 U/L (15-37); Alanine Aminotransfer ALT/SGPT 30 U/L (13-56); Albumin, Serum 3.9 g/dL (3.2-5.0); Alkaline Phosphatase 98 U/L (45-117); Anion Gap 7 (5-15); BUN 14 mg/dL (7-18); BUN/Creat Ratio 14.7 RATIO (10-20); Calcium,Total 9.3 mg/dL (8.5-10.1); Chloride 101 mmol/L (98-107); Creatinine, Serum 0.96 mg/dL (0.55-1.02); EST Glomerular Filtration Rate 61 mL/min (>60); Est Glom Filt Rate - Afr Amer 74 mL/min (>60); Estimated Creatinine Clearance 52.65 ml/min; Globulin 4.5 g/dL (2.2-4.2); Glucose 199 mg/dL (74-106); Lipase 23 U/L (73-393); Potassium 4.1 mmol/L (3.5-5.1); Protein, Total 8.4 g/dL (6.4-8.2); Sodium Level 132 mmol/L (136-145)
[2020-03-12 21:21] LABS: Lactic Acid 1.6 mmol/L (0.4-1.9)
[2020-03-12 21:29] LABS: Platelet Estimate SLT DEC (ADEQ); Red Cell Morphology NORM C+C NORMAL (NORM C&C)
--- NOTE | 2020-03-12 21:30 | RAD_ITS ---
STUDY: X-RAY CHEST REASON FOR EXAM: Female, 75 years old. fever, weakness, nausea, vomiting TECHNIQUE: Portable chest COMPARISON: 12/11/2019 FINDINGS: There are mild bibasilar pulmonary opacities. There is cardiac pacemaker. There is mild cardiomegaly. Normal mediastinum and mahendra. Normal visualized pulmonary arteries. Normal visualized aortic arch and descending thoracic aorta. Normal visualized thoracic spine. Normal visualized ribs, clavicles, and shoulders. There is no demonstrated abnormality of the visualized soft tissue structures of the upper abdomen. RAD/Chest 1 View (Portable) IMPRESSION: Mild cardiomegaly Cardiac pacemaker Mild bibasilar pulmonary opacities hypoventilatory changes versus infectious alveolitis. Atypical viral pneumonia cannot be excluded. Electronically Signed: Blake Brewer, at 21:54 EDT Tel , Service support ,
--- NOTE | 2020-03-12 23:04 | PCM.HP.STD ---
Problem List (1) Suspected 2019 novel coronavirus infection Status: Acute (2) Pneumonia Status: Acute Qualifiers: Pneumonia type: due to unspecified organism Laterality: bilateral Lung location: unspecified part of lung Qualified Code(s): J18.9 - Pneumonia, unspecified organism (3) S/P ablation of atrial flutter Status: Resolved Comment: @ [facility] by Dr. 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 (8) Obesity Status: Chronic Qualifiers: Obesity type: due to excess calories Obesity classification: unspecified obesity classification Serious obesity comorbidity presence: unspecified whether serious comorbidity present Qualified Code(s): E66.09 - Other obesity due to excess calories (9) RAMESH (obstructive sleep apnea) Status: Chronic (10) Asthma Status: Chronic Qualifiers: Asthma severity: unspecified severity Asthma persistence: unspecified Asthma complication type: uncomplicated Qualified Code(s): J45.909 - Unspecified asthma, uncomplicated (11) Hyperlipidemia Status: Chronic Qualifiers: Hyperlipidemia type: unspecified Qualified Code(s): E78.5 - Hyperlipidemia, unspecified (12) Type 2 diabetes mellitus Status: Chronic Qualifiers: 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 use: without terminal computer operator use Diabetes mellitus complication status: with other specified complication Qualified Code(s): E11.69 - Type 2 diabetes mellitus with other specified complication (13) Hypertension Status: Chronic Qualifiers: Hypertension type: essential hypertension Qualified Code(s): I10 - Essential (primary) hypertension History of Present Illness Date of Admission: 03/12/20 Chief Complaint: N/V, fever, weakness The patient is a 75 y/o F w/ PMHx: Obesity, RAMESH non-complaint with CPAP, PAF s/p pacemaker, Diabetes mellitus type II, Asthma, HTN, HLD, 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 Patient notes the abdominal discomfort with palpation is a 5 out of 10 in severity. In the ED work-up included T102.3, heart 77, BP initially 193/94, respiratory rate 18, initially 93% on room air with repeat BP 122/83, respiratory rate 19, 96% on 2 L nasal cannula, CBC with WBC 14.9, hemoglobin 15.2, platelet 98 with left shift and with concurrent lymphopenia, INR 2.2, CMP with sodium 132, glucose 199, lactic acid 1.6, total bilirubin 1.30, troponin less than 0.015, lipase 23, urinalysis with no obvious evidence of UTI or severe dehydration, coronavirus testing pending, chest x-ray with mild cardiomegaly, cardiac pacemaker status, mild bibasilar pulmonary opacities with hypoventilatory changes versus infectious alveolitis consistent with atypical viral pneumonia possibly, CT abdomen and pelvis with stable severe right hydro-nephrosis with a stable significant distention of the right renal pelvis with mild distention of the more distal right ureter unchanged and new moderate left hydronephrosis and mild left hydroureter with moderate distention of the bladder, stable cardiomegaly, cardiac pacemaker status as well as mild bibasilar pulmonary opacities with hypoventilatory changes versus infectious atypical viral pneumonia, mild distention of the gallbladder. In the ED patient administered normal saline, Zofran, Tylenol. Past Medical History Past Medical History (Chronic Problems): Chronic Problems (Last Updated 11/09/19 @ 15:32 by Elvia Hall) Abnormal EKG (Chronic) Ulcer of right lower extremity with fat layer exposed (Chronic) Presence of permanent cardiac pacemaker (Chronic 04/01/19) Implant @ [facility] by Dr. 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) Atrial fibrillation (Chronic) Medical History: Medical History (Last Updated 11/09/19 @ 15:32 by Elvia Hall) Abnormal EKG (Chronic) R94.31 Hyperlipidemia (Chronic) E78.5 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) Q62.39 Obesity (Chronic) E66.9 Diabetes mellitus (Chronic) E11.9 Other secondary pulmonary hypertension (Chronic) I27.29 RAMESH (obstructive sleep apnea) (Chronic) G47.33 Asthma (Chronic) J45.909 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) Z79.01 Atrial fibrillation (Chronic) I48.91 Cystitis N30.90 Allergic rhinitis J30.9 BMI 33.0-33.9,adult Z68.33 Contact dermatitis and other eczema DDD (degenerative disc disease) Dizziness and giddiness R42 Hx of bladder infections Z87.440 Hypersomnia G47.10 RAMESH (obstructive sleep apnea) G47.33 Palpitations R00.2 Shoulder dislocation S43.006A Viral URI with cough (Resolved) J06.9, B97.89 Allergies amoxicillin Allergy (Severe, Verified 03/12/20 18:43) Hives aspirin Allergy (Severe, Verified 03/12/20 18:43) Hives, SOB Sulfa (Sulfonamide Antibiotics) Allergy (Severe, Verified 03/12/20 18:43) Hives Home Medications: Ambulatory Orders Medication Instructions Recorded magnesium oxide 400 mg PO DAILY cap 11/18/17 metformin 500 mg tablet 1,000 mg PO BID tab 02/13/18 glimepiride 2 mg tablet 2 mg PO DAILY 10/11/18 budesonide-formoterol HFA 160 2 puff INHALATION BID 11/04/18 mcg-4.5 mcg/actuation aerosol inhaler Albuterol IH (ProAir) [Proair Hfa] 1 puff INHALATION Q4H PRN PRN 11/18/18 Oxycodone HCl/Acetaminophen 1 tab PO Q6H PRN PRN 11/18/18 [Percocet 5-325] Warfarin [Coumadin] 5 mg PO DAILY 11/18/18 Atorvastatin Calcium 10 mg PO QHS 12/11/19 Flecainide Acetate 100 mg PO Q12H 12/11/19 Gabapentin [Neurontin] 300 mg PO QHS 12/11/19 Surgical History: Surgical History (Last Reviewed 11/04/19 @ 13:07 by Elvia Hall) Presence of permanent cardiac pacemaker (Chronic) Onset Date: 04/01/19 Z95.0 Implant @ [facility] by Dr. 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 Lives: Alone Smoking Status: Never smoker Tobacco Use: Non-smoker Alcohol: None Drugs: None - *Family History Maternal Family History: Family History (Last Reviewed 11/04/19 @ 13:07 by Elvia Hall) Mother Diabetes Father CAD (coronary artery disease) Sister Lung cancer Son Kidney stone History Items: Diabetes, Heart Disease Paternal Family History: Family History (Last Reviewed 11/04/19 @ 13:07 by Elvia Hall) Mother Diabetes Father CAD (coronary artery disease) Sister Lung cancer Son Kidney stone History Items: High Cholesterol, Heart Disease, Hypertension Review of Systems Constitutional: Reports: Anorexia, Chills, Fever, Malaise, Weakness, Fatigue. Denies: Weight Change HEENT: Denies: Head Aches, Nasal Congestion, Sinus Congestion, Sinus Drainage, Sore Throat Cardiovascular: Denies: Chest Pain, Chest Pressure, Chest Tightness, Light Headedness, Orthopnea, Palpitations, Syncope Respiratory: Reports: Cough, Shortness of Breath, Shortness of breath at rest, Shortness of breath upon exertion. Denies: Sputum production, Wheezing Gastrointestinal: Reports: Abdominal Pain, Diarrhea, Nausea, Vomiting Genitourinary: Denies: Dysuria Musculoskeletal: Reports: Back Pain, Joint Pain, Muscle pain. Denies: Joint Tenderness Skin: Denies: Rash, Wounds Neurological: Denies: Numbness, Tingling, Focal weakness Psychiatric: Denies: Anxiety, Depression, Homicidal Ideations, Suicidal Ideations Hematologic/ Lymphatic: Reports: Easy Bruising, Easy Bleeding VTE Information - Inpt Only VTE Present on Admission: No VTE Mechan Device Prophylaxis: SCD's VTE Pharm Prophylaxis ordered?: No Reason prophylaxis not ordered:: Treatment Not Indicated - We will continue patient Coumadin therapy, therapeutic upon presentation. Patient Problems: Active and Suspected Problems (Last Updated 11/09/19 @ 15:32 by Elvia Hall) Suspected 2019 novel coronavirus infection (Acute) Pneumonia (Acute) Subjective: Laying in the ED bed, fatigued and ill-appearing. Objective: Physical Examination: General: awake, alert, oriented to self, place and recent events, fatigued and mildly sluggish however, remains cooperative, seated upright in the ED bed in no apparent distress fatigued and ill-appearing. Skin: normal color, turgor, no icterus, cyanosis. HEENT: AT/NC, EOMI, PERRLA, dry MM, no carotid bruits or JVD noted. Lungs: Diminished breath sounds bilaterally, greater bilateral bases, moderate effort, no rales, ronchi or wheezing. Heart: Regular rate and rhythm; no gallop, rub audible. Abdomen: soft, BS, discomfort generalized with palpation however worse bilateral lower quadrant with some voluntary guarding, hyperactive bowel sounds, no obvious distention, no obvious HSM however difficult examination given discomfort. Extremities: no cyanosis, clubbing, bilateral lower extremity ankle edema. Neurological: patient awake, alert, oriented noted; cognitive function suspect mildly decreased from baseline; pupils equally reactive to light and accomodation; cranial nerves II-XII grossly normal, moving all 4 extremities, no focal deficits, strength severely global decrease secondary to acute presentation. Psychiatric: affect appears fatigued and ill-appearing, no acute evidence of depressive or anxiety feelings. - Physical Exam Vitals/I&O's: Vital Signs Temp Pulse Resp BP Pulse Ox 100.1 F H 62 18 122/93 H 97 03/12/20 22:00 03/12/20 22:00 03/12/20 22:00 03/12/20 22:00 03/12/20 22:00 Oxygen Flow Rate (L/min) 2 Oxygen Delivery Method Nasal Cannula Weight: 191 lb 2.252 oz Body Mass Index (BMI) 29.0 Finger Stick Blood Glucose 320 Intake and Output for Last 24 Hours 03/10/20 03/11/20 03/12/20 23:59 23:59 23:59 Intake Total 1000 / 1000 Balance 1000 / 999 Laboratory Results 03/12/20 20:25: Urine Color Yellow, Urine Clarity Clear, Urine pH 7.0, Ur Specific [place] 1.010, Urine Protein 30 H, Urine Glucose (UA) Normal, Urine Ketones 5 H, Urine Occult Blood 10 H, Urine Nitrite Negative, Urine Bilirubin Negative, Urine Urobilinogen Normal, Ur Leukocyte Esterase Negative, Urine RBC 0 SEEN, Urine WBC 0-5 SEEN, Ur Squamous Epith Cells 0 SEEN, Urine Bacteria 0 SEEN, Urine Mucus 0 SEEN 03/12/20 20:45: WBC 14.9 H, RBC 4.72, Hgb 15.2 H, Hct 44.1, MCV 93.4, MCH 32.2 H, MCHC 34.5, RDW Std Deviation 41.1, RDW Coeff of Jason 11.9, Plt Count 98 L, MPV 9.3, Immature Gran % (Auto) 0.700, Neut % (Auto) 90.1 H, Lymph % (Auto) 3.6 L, [place] % (Auto) 5.0, Eos % (Auto) 0.4, Baso % (Auto) 0.2, Absolute Neuts (auto) 13.4 H, Absolute Lymphs (auto) 0.54 L, Nucleated RBC % 0, Differential Comment , Platelet Estimate SLT DEC, RBC Morphology NORM C+C 03/12/20 20:45: Sodium 132 L, Potassium 4.1, Chloride 101, Carbon Dioxide 24.0, Anion Gap 7, BUN 14, Creatinine 0.96, Estim Creat Clear Calc 52.65, Est GFR (MDRD) Af Amer 74, Est GFR (MDRD) Non-Af 61, BUN/Creatinine Ratio 14.7, Glucose 199 H, Calcium 9.3, Total Bilirubin 1.30 H, AST 35, ALT 30, Alkaline Phosphatase 98, Troponin I < 0.015, Total Protein 8.4 H, Albumin 3.9, Globulin 4.5 H, Albumin/Globulin Ratio 0.9, Lipase 23 L 03/12/20 20:45: Lactic Acid 1.6 03/12/20 20:45: PT 24.4 H, INR 2.2 Assessment/Plan All Active Problems (Last Updated 11/09/19 @ 15:32 by Elvia Hall) Encephalopathy acute (Acute) Falls (Acute) UTI (urinary tract infection) (Acute) Suspected 2019 novel coronavirus infection (Acute) Pneumonia (Acute) S/P ablation of atrial flutter (Resolved 04/01/19) Subtherapeutic international normalized ratio (INR) (Acute) Viral URI with cough (Resolved) The patient is a 75 y/o F w/ PMHx: Obesity, RAMESH non-complaint with CPAP, PAF s/p pacemaker, Diabetes mellitus type II, Asthma, HTN, HLD, 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 1. Nausea, Emesis, Diarrhea, Abdominal pain, Fever, Chills, Cough, Dyspnea secondary to Bilateral Pneumonia secondary to Suspected Acute Viral Syndrome, COVID-19: Will admit to the COVID unit as PCU status given cardiac history to be cautious, will maintain on oxygen with wean as tolerated to room air, continue home inhaler scheduled and PRN albuterol inhaler given high suspicion COVID, maintain on IV Rocephin and Azithromycin, HOB, IS parameters w/ pending sputum cultures, respiratory viral panel and urine antigens, will obtain procalcitonin, CRP, CPK, Ferritin, LDH, D-dimer although therapeutic on coumadin, trend INR, continue supportive care including q 2 hour turning including prone given no prone bed availability and judicious hydration, closely monitor for worsening status for ARDS and multiorgan failure. COVID testing initiated per ED and pending upon admission. 2. History of congenital renal pelvis and ureter obstructive defect: Is post surgical intervention x2 in her youth at age 14 per report, she does not follow with urology currently, noted CT abdomen and pelvis with stable severe right hydronephrosis with stable significant distention of the right renal pelvis and noted mild distention of the more distal right ureter unchanged as well. There is however new findings noted of a new moderate left hydronephrosis and mild left hydroureter. Given acute presentation as noted #1 would opt to have patient follow-up outpatient with urology, Dr. Chow per discussion with patient once clinically appropriate for discharge. 3. Chronic asthma: We will continue patient home inhaler if able with PRN albuterol inhaler given acute presentation as noted #1, continue oxygen supplementation as needed. 4. Diabetes mellitus type II: Hold oral home regimen, allow clears given presentation and discomfort with advancement to ADA diet as tolerated, accu checks w/ ISS. 5. Hypertension: Reported history but not on regimen, will closely monitor blood pressure as initially very hypotensive, improved now, add oral regimen if appropriate, PRN hydralazine. 6. Hyperlipidemia: Continue home statin regimen. 7. Paroxysmal Atrial Fib/Flutter: This post ablation per history, status post pacemaker placement, will continue patient home flecainide, Coumadin with INR trending, plan to maintain on telemetry given presentation #1. 8. Obesity: Weight loss and lifestyle changes encouraged. 9. RAMESH: Noncompliant with CPAP. 10. DVT prophylaxis: SCDs, Coumadin with INR trending. 11. CODE status: Patient ANGEL is her youngest daughter Brooke and living will is currently in place. Discussed CODE status at length including difference between FULL code, DNR-CCA and DNR-CC status. Following discussions about the differences in these status, requested full CODE STATUS however she does note that her living will specifies avoidance of certain things if prolonged. Advanced Care Planning Face to Face Time: 16 minutes. Inpatient E&M: 48336 Init Hosp L3 Procedures: 94961 Advncd Care Plan 30 Min
[2020-03-13] VITALS (21 sets, daily range): BP systolic 126–163; BP diastolic 53–95; PULSE 59–82; RESP 14–22; TEMP 36.5–38.1; O2SAT 94–99; BMI 30.1
[2020-03-13] MEDS: 0.9% Normal Saline 1,000 ML 100 ML IV ×3 (02:40→20:55)
[2020-03-13 02:58] LABS: Absolute Lymphocyte Count 0.59 X10^3/uL (0.83-4.51); Basophil# 0.03 X10^3/uL; Basophil% 0.2 % (0-1); Eosinophils% 1.5 % (0-5); Hematocrit 41.6 % (37-47); Lymphocyte # 0.59 X10^3/ul (4.0); Lymphocyte % 4.3 % (19-41); Mean Corp Hgb Conc 33.7 g/dL (32-36); Mean Corpuscular Hgb 31.9 pg (27.0-32.0); Mean Corpuscular Volume 94.8 fL (81-99); Mean Platelet Vol. 9.6 fl (6.2-12.0); Monocyte# 0.67 X10^3/uL; Monocyte% 4.9 % (0-10); NRBC Flagged by Analyzer 0 % (0-5); Neutrophil # 12.02 X10^3/uL (2.7-7.7); Neutrophil % 88.6 % (47-70); POSITIVE COUNT YES; POSITIVE DIFFERENTIAL YES; POSITIVE MORPHOLOGY YES; Platelet Count 98 K/mm3 (150-450); Red Blood Count 4.39 M/mm3 (4.2-5.4); White Blood Count 13.6 K/mm3 (4.4-11.0)
[2020-03-13 02:59] LABS: Differential Indicated SCAN CRITERIA MET
[2020-03-13 03:06] LABS: International Normalized Ratio 2.3; Prothrombin Time (Protime)PT. 24.9 SECONDS (11.7-14.9)
[2020-03-13 03:10] LABS: D-Dimer Quantitative (DVT/PE) 0.89 FEU/ug/m (0.27-0.49)
[2020-03-13 03:17] LABS: ALB/GLOB Ratio 0.8 RATIO (0.9-2.4); AST(SGOT) 27 U/L (15-37); Alanine Aminotransfer ALT/SGPT 27 U/L (13-56); Albumin, Serum 3.3 g/dL (3.2-5.0); Alkaline Phosphatase 82 U/L (45-117); Anion Gap 8 (5-15); BUN 14 mg/dL (7-18); BUN/Creat Ratio 13.9 RATIO (10-20); CPK Total, Creatine Kinase 92 U/L (26-192); Calcium,Total 8.6 mg/dL (8.5-10.1); Chloride 102 mmol/L (98-107); Creatinine, Serum 1.01 mg/dL (0.55-1.02); EST Glomerular Filtration Rate 57 mL/min (>60); Est Glom Filt Rate - Afr Amer 69 mL/min (>60); Estimated Creatinine Clearance 46.44 ml/min; Ferritin 390 ng/mL (8-252); Globulin 4.1 g/dL (2.2-4.2); Glucose 136 mg/dL (74-106); LDH 222 U/L (84-246); Magnesium 1.4 mg/dL (1.6-2.6); Potassium 3.8 mmol/L (3.5-5.1); Protein, Total 7.4 g/dL (6.4-8.2); Sodium Level 134 mmol/L (136-145)
[2020-03-13 03:21] LABS: Procalcitonin 0.38 ng/mL (0.00-0.09)
--- NOTE | 2020-03-13 07:27 | PCM.PN.HOSP ---
Patient Problems: Active and Suspected Problems (Last Updated 11/09/19 @ 15:32 by Elvia Hall) Suspected 2019 novel coronavirus infection (Acute) Pneumonia (Acute) Reason for Visit: Persistent cough Subjective: Patient is a 75-year-old lady who presented with persistent cough. Imaging studies obtained demonstrated Mild bibasilar pulmonary opacities hypoventilatory changes versus atypical viral pneumonia patient placed in isolation [place] COVID 19 is been ruled out Objective: GENERAL: cooperative HEENT: Atraumatic; EYES; Anicteric, Normal Conjunctiva NECK; supple, normal thyroid, RESPIRATORY: Diminished to auscultation CARDIOVASCULAR: Regular S1 S2, GI: soft, normoactive bowel sounds, : No Renal angle tenderness; EXTREMITIES: No edema, no clubbing, MUSCULOSKELETAL: no muscle waisting NEURO: Awake; no lateralizing signs. SKIN: No Rash PSYCH; Flat affect Vitals/I&O's: Vital Signs Temp Pulse Resp BP Pulse Ox 99.1 F 65 16 132/73 H 99 03/13/20 02:00 03/13/20 02:11 03/13/20 02:00 03/13/20 02:00 03/13/20 02:00 Oxygen Flow Rate (L/min) 2 Oxygen Delivery Method Nasal Cannula Weight: 84.6 kg Body Mass Index (BMI) 30.1 Finger Stick Blood Glucose 320 Intake and Output for Last 24 Hours 03/11/20 03/12/20 03/13/20 23:59 23:59 23:59 Intake Total 1000 / 1000 195 / 195 Balance 1000 / 1000 195 / 195 Microbiology Past 72 Hours 03/12/20 20:28 Urine, Random Legionella Antigen - Final 03/12/20 20:28 Urine, Random Streptococcus pneumoniae Antigen (M - Final 03/12/20 23:10 Mucosa - Nasopharyngeal Coronavirus COVID-19 PCR - Final Laboratory Results 03/12/20 20:25: Urine Color Yellow, Urine Clarity Clear, Urine pH 7.0, Ur Specific [place] 1.010, Urine Protein 30 H, Urine Glucose (UA) Normal, Urine Ketones 5 H, Urine Occult Blood 10 H, Urine Nitrite Negative, Urine Bilirubin Negative, Urine Urobilinogen Normal, Ur Leukocyte Esterase Negative, Urine RBC 0 SEEN, Urine WBC 0-5 SEEN, Ur Squamous Epith Cells 0 SEEN, Urine Bacteria 0 SEEN, Urine Mucus 0 SEEN 03/12/20 20:45: WBC 14.9 H, RBC 4.72, Hgb 15.2 H, Hct 44.1, MCV 93.4, MCH 32.2 H, MCHC 34.5, RDW Std Deviation 41.1, RDW Coeff of Jason 11.9, Plt Count 98 L, MPV 9.3, Immature Gran % (Auto) 0.700, Neut % (Auto) 90.1 H, Lymph % (Auto) 3.6 L, [place] % (Auto) 5.0, Eos % (Auto) 0.4, Baso % (Auto) 0.2, Absolute Neuts (auto) 13.4 H, Absolute Lymphs (auto) 0.54 L, Nucleated RBC % 0, Differential Comment , Platelet Estimate SLT DEC, RBC Morphology NORM C+C 03/12/20 20:45: Sodium 132 L, Potassium 4.1, Chloride 101, Carbon Dioxide 24.0, Anion Gap 7, BUN 14, Creatinine 0.96, Estim Creat Clear Calc 52.65, Est GFR (MDRD) Af Amer 74, Est GFR (MDRD) Non-Af 61, BUN/Creatinine Ratio 14.7, Glucose 199 H, Calcium 9.3, Total Bilirubin 1.30 H, AST 35, ALT 30, Alkaline Phosphatase 98, Troponin I < 0.015, Total Protein 8.4 H, Albumin 3.9, Globulin 4.5 H, Albumin/Globulin Ratio 0.9, Lipase 23 L 03/12/20 20:45: Lactic Acid 1.6 03/12/20 20:45: PT 24.4 H, INR 2.2 03/12/20 23:10: COVID-19 (RUSSELL) Cancelled 03/13/20 02:40: PT 24.9 H, INR 2.3, D-Dimer Quant (PE/DVT) 0.89 H* 03/13/20 02:40: Sodium 134 L, Potassium 3.8, Chloride 102, Carbon Dioxide 24.0, Anion Gap 8, BUN 14, Creatinine 1.01, Estim Creat Clear Calc 46.44, Est GFR (MDRD) Af Amer 69, Est GFR (MDRD) Non-Af 57 L, BUN/Creatinine Ratio 13.9, Glucose 136 H, Calcium 8.6, Magnesium 1.4 L, Ferritin 390 H, Total Bilirubin 0.80, AST 27, ALT 27, Alkaline Phosphatase 82, Lactate Dehydrogenase 222, Total Creatine Kinase 92, C-React Prot Ext Range 67.60 H, Total Protein 7.4, Albumin 3.3, Globulin 4.1, Albumin/Globulin Ratio 0.8 L 03/13/20 02:40: Procalcitonin 0.38 H 03/13/20 02:40: WBC 13.6 H, RBC 4.39, Hgb 14.0, Hct 41.6, MCV 94.8, MCH 31.9, MCHC 33.7, RDW Std Deviation 42.0, RDW Coeff of Jason 12.0, Plt Count 98 L, MPV 9.6, Immature Gran % (Auto) 0.500, Neut % (Auto) 88.6 H, Lymph % (Auto) 4.3 L, [place] % (Auto) 4.9, Eos % (Auto) 1.5, Baso % (Auto) 0.2, Absolute Neuts (auto) 12.0 H, Absolute Lymphs (auto) 0.59 L, Nucleated RBC % 0, Differential Comment Current Medications Acetaminophen (Tylenol) 650 mg PO Q6H PRN PRN PRN Reason: Pain Score 1-10/Temp > 100.7 F Al Hydroxide/Mg Hydroxide (Mylanta Ii) 30 ml PO Q6H PRN PRN PRN Reason: Gastric Burning Albuterol Sulfate (Ventolin Aerosols) 2.5 mg INHALATION Q4H PRN PRN PRN Reason: dyspnea, wheezing Albuterol Sulfate (Ventolin Aerosols) 2.5 mg INHALATION Q6HWA.RT CLARY Atorvastatin Calcium (Lipitor) 10 mg PO QHS CLARY Azithromycin (Zithromax) 500 mg PO Q24 CLARY Budesonide (Pulmicort Aerosol) 0.5 mg INHALATION Q12H.RT CLARY Dextrose (D50w Syringe) 0 gm IV X1 PRN; Protocol PRN Reason: Hypoglycemia Famotidine (Pepcid) 20 mg PO BID CLARY Flecainide Acetate (Tambocor) 100 mg PO Q12 CLARY Gabapentin (Neurontin) 300 mg PO QHS CLARY Glucagon () 1 mg IM .X1 PRN PRN Reason: Hypoglycemia Guaifenesin (Robitussin) 20 ml PO Q4H PRN PRN PRN Reason: COUGH Hydralazine HCl (Apresoline Iv) 10 mg IV Q4H PRN PRN PRN Reason: SBP > 160 Sodium Chloride () 1,000 mls @ 100 mls/hr IV .Q10H [facility] Last Infusion: 03/13/20 04:37 Dose: 100 mls/hr Documented by: Ceftriaxone Sodium 2 gm/ (Sodium Chloride) 50 mls @ 100 mls/hr IV Q24@2200 CLARY Last Infusion: 03/13/20 04:37 Dose: Infused Documented by: Sodium Chloride () 250 mls @ 15 mls/hr IV .[id number] PRN PRN Reason: Saline Flush Sodium Chloride () 250 mls @ 15 mls/hr IV .[id number] PRN PRN Reason: Additional IVPB Infusion Magnesium Sulfate () 4 gm in 100 mls @ 25 mls/hr IV X1 ONE Stop: 03/13/20 10:46 Insulin Human Lispro (Humalog Kwikpen (Bkc)) 0 unit SC 4X/DAYCM [facility]; Protocol Magnesium Hydroxide (Milk Of Magnesia) 30 ml PO DAILY PRN PRN PRN Reason: Constipation Melatonin (Melatonin) 3 mg PO QHS PRN PRN PRN Reason: INSOMNIA Morphine Sulfate () 2 mg IV Q3H PRN PRN PRN Reason: Pain Score 6-10/10 Nitroglycerin (Nitrostat) 0.4 mg SUBLINGUAL Q5M PRN PRN Reason: CARDIAC/CHEST PAIN Ondansetron HCl (Zofran) 4 mg IV Q8H PRN PRN PRN Reason: NAUSEA/VOMITING Oxycodone HCl (Oxyir) 5 mg PO Q4H PRN PRN PRN Reason: Pain Score 4-5/10 Prochlorperazine Edisylate (Compazine Iv) 5 mg IV Q4H PRN PRN PRN Reason: Breakthrough Nausea/Vomiting Psyllium Hydrophilic Mucilloid (Metamucil) 1 packet PO DAILY PRN PRN PRN Reason: Constipation Senna/Docusate Sodium (Senokot-S, Beth-Colace) 2 tablet PO BID PRN PRN PRN Reason: Constipation Sodium Chloride () 10 - 40 ml IV UD PRN PRN Reason: SALINE FLUSH Throat Lozenges (Cepacol Sore Throat Lozenge) 1 lozenge MUCOUS MEM Q2H PRN PRN PRN Reason: SORE THROAT Warfarin Sodium (Coumadin (Pbkc)) 5 mg PO DAILY CLARY; Protocol Medical Necessity - Tobacco Use Smoking Status: Never smoker Tobacco Use: Non-smoker Assessment/Plan All Active Problems (Last Updated 11/09/19 @ 15:32 by Elvia Hall) Encephalopathy acute (Acute) Falls (Acute) UTI (urinary tract infection) (Acute) Suspected 2019 novel coronavirus infection (Acute) Pneumonia (Acute) S/P ablation of atrial flutter (Resolved 04/01/19) Subtherapeutic international normalized ratio (INR) (Acute) Viral URI with cough (Resolved) Patient is a 75-year-old lady who presented with persistent cough. Imaging studies obtained demonstrated Mild bibasilar pulmonary opacities hypoventilatory changes versus atypical viral pneumonia patient placed in isolation whilst COVID 19 is being ruled out 1. Acute viral syndrome ?Imaging studies obtained demonstrated Mild bibasilar pulmonary opacities hypoventilatory changes versus atypical viral pneumonia patient placed in isolation whilst COVID 19 is being ruled out she was started on broad-spectrum antibiotic therapy with Rocephin and Zithromax (Zithromax switched to doxycycline in view of patient being on flecainide) 2. 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 Mild intermittent asthma ?Patient is on Symbicort as well as as needed albuterol discontinue 4. Diabetes mellitus type II ~Controlled patient's oral hypoglycemics held. Placed on long acting insulin, Accu-Cheks a.c. and at bedtime and covered with sliding scale insulin 5. Essential hypertension ~ blood pressure controlled, home medications continued with dose adjustment as needed 6. Dyslipidemia ~patient is on statin therapy, continued at home dose 7. Paroxysmal A. fib/flutter ?Patient has had previous ablation currently on flecainide as well as systemic anticoagulation with therapeutic INR 8. 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 Obesity with BMI of 30.1 ?Weight loss advised 10. Obstructive sleep apnea ?Apparently noncompliant with CPAP therapy 11. DVT prophylaxis ?Patient on Coumadin Inpatient E&M: [id number] [facility] L[facility]
[2020-03-13] MEDS: Budesonide Respules 0.5 MG/2 ML AMPUL.NEB. INHALATION ×2 (07:31→18:53)
[2020-03-13] MEDS: Albuterol 2.5 MG/3 ML VIAL.NEB. INHALATION ×3 (07:31→18:50)
[2020-03-13] MEDS: Magnesium Sulfate 4gm/100mL 4 GM/100 ML IV.SOLN. IV (08:23)
[2020-03-13] MEDS: Famotidine 20 MG Tablet PO ×2 (08:24→20:54)
[2020-03-13] MEDS: Azithromycin 250 MG Tablet 500 MG PO (08:24)
[2020-03-13] MEDS: Flecainide 100 MG Tablet PO ×2 (08:24→20:54)
[2020-03-13 09:26] LABS: Bedside Glucose 108 mg/dL (70-110)
--- NOTE | 2020-03-13 10:00 | CON.PCM_ITS ---
Problem List (1) Suspected 2019 novel coronavirus infection Status: Acute Reason for Consult: suspected covid Consulted by: Dr. Helm History of Present Illness: The patient is a 75 year old F with h/o pacer, congenital hydronephrosis, presented to ED yesterday with sudden onset of chills and fall at home. Was unable to get up for an hour. Some new nausea and diarrhea. Has lost sense of smell for the past year or so. No cough, no dyspnea, no aches, no headache, no sore throat, no dysuria or urine changes. No sick contacts, stays at home, has been masking when she does have to go out. Came to ED, CT abd/pelvis done. Fever to 102.3, admitted on azithro/ceftriaxone, changed to doxy/ceftriaxone this AM. Feeling back to normal now, off O2. Full ROS performed and neg except as noted above. - Medical History Past Medical History (Chronic Problems): Chronic Problems (Last Updated 11/09/19 @ 15:32 by Elvia Hall) Abnormal EKG (Chronic) Ulcer of right lower extremity with fat layer exposed (Chronic) Presence of permanent cardiac pacemaker (Chronic 04/01/19) Implant @ [facility] by Dr. 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) Obesity (Chronic) Diabetes mellitus (Chronic) Other secondary pulmonary hypertension (Chronic) Obesity (Chronic) Pulmonary hypertension (Chronic) RAMESH (obstructive sleep apnea) (Chronic) Asthma (Chronic) Hyperlipidemia (Chronic) Type 2 diabetes mellitus (Chronic) Hypertension (Chronic) [facility]CI (current) use of anticoagulants (Chronic) Atrial fibrillation (Chronic) Allergies/Adverse Reactions: Allergies amoxicillin Allergy (Severe, Verified 03/12/20 18:43) Hives aspirin Allergy (Severe, Verified 03/12/20 18:43) Hives, SOB Sulfa (Sulfonamide Antibiotics) Allergy (Severe, Verified 03/12/20 18:43) Hives Home Medications: Ambulatory Orders Medication Instructions Recorded magnesium oxide 400 mg PO DAILY cap 11/18/17 metformin 500 mg tablet 1,000 mg PO BID tab 02/13/18 glimepiride 2 mg tablet 2 mg PO DAILY 10/11/18 budesonide-formoterol HFA 160 2 puff INHALATION BID 11/04/18 mcg-4.5 mcg/actuation aerosol inhaler Albuterol IH (ProAir) [Proair Hfa] 1 puff INHALATION Q4H PRN PRN 11/18/18 Oxycodone HCl/Acetaminophen 1 tab PO Q6H PRN PRN 11/18/18 [Percocet 5-325] Warfarin [Coumadin] 5 mg PO DAILY 11/18/18 Atorvastatin Calcium 10 mg PO QHS 12/11/19 Flecainide Acetate 100 mg PO Q12H 12/11/19 Gabapentin [Neurontin] 300 mg PO QHS 12/11/19 Vital Signs Temp Pulse Resp BP Pulse Ox 99.1 F 79 20 H 132/73 H 99 03/13/20 02:00 03/13/20 08:38 03/13/20 08:38 03/13/20 02:00 03/13/20 02:00 Oxygen Flow Rate (L/min) 2 Oxygen Delivery Method Nasal Cannula Weight: 84.6 kg Body Mass Index (BMI) 30.1 Finger Stick Blood Glucose 320 Microbiology Past 72 Hours 03/12/20 20:28 Legionella Antigen - Final Urine, Random 03/12/20 20:28 Streptococcus pneumoniae Antigen (M - Final Urine, Random 03/12/20 23:10 Coronavirus COVID-19 PCR - Final Mucosa - Nasopharyngeal Laboratory Tests Past 24 Hrs 03/12/20 03/12/20 03/12/20 20:25 20:45 20:45 WBC 14.9 H RBC 4.72 Hgb 15.2 H Hct 44.1 MCV 93.4 MCH 32.2 H MCHC 34.5 RDW Std Deviation 41.1 RDW Coeff of Jason 11.9 Plt Count 98 L MPV 9.3 Immature Gran % (Auto) 0.700 Neut % (Auto) 90.1 H Lymph % (Auto) 3.6 L [place] % (Auto) 5.0 Eos % (Auto) 0.4 Baso % (Auto) 0.2 Absolute Neuts (auto) 13.4 H Absolute Lymphs (auto) 0.54 L Nucleated RBC % 0 Differential Comment Platelet Estimate SLT DEC RBC Morphology NORM C+C PT INR D-Dimer Quant (PE/DVT) Sodium 132 L Potassium 4.1 Chloride 101 Carbon Dioxide 24.0 Anion Gap 7 BUN 14 Creatinine 0.96 Estim Creat Clear Calc 52.65 Est GFR (MDRD) Af Amer 74 Est GFR (MDRD) Non-Af 61 BUN/Creatinine Ratio 14.7 Glucose 199 H Lactic Acid Calcium 9.3 Magnesium Ferritin Total Bilirubin 1.30 H AST 35 ALT 30 Alkaline Phosphatase 98 Lactate Dehydrogenase Total Creatine Kinase Troponin I < 0.015 C-React Prot Ext Range Total Protein 8.4 H Albumin 3.9 Globulin 4.5 H Albumin/Globulin Ratio 0.9 Lipase 23 L Procalcitonin Urine Color Yellow Urine Clarity Clear Urine pH 7.0 Ur Specific [place] 1.010 Urine Protein 30 H Urine Glucose (UA) Normal Urine Ketones 5 H Urine Occult Blood 10 H Urine Nitrite Negative Urine Bilirubin Negative Urine Urobilinogen Normal Ur Leukocyte Esterase Negative Urine RBC 0 SEEN Urine WBC 0-5 SEEN Ur Squamous Epith Cells 0 SEEN Urine Bacteria 0 SEEN Urine Mucus 0 SEEN COVID-19 (RUSSELL) 03/12/20 03/12/20 03/12/20 20:45 20:45 23:10 WBC RBC Hgb Hct MCV MCH MCHC RDW Std Deviation RDW Coeff of Jason Plt Count MPV Immature Gran % (Auto) Neut % (Auto) Lymph % (Auto) [place] % (Auto) Eos % (Auto) Baso % (Auto) Absolute Neuts (auto) Absolute Lymphs (auto) Nucleated RBC % Differential Comment Platelet Estimate RBC Morphology PT 24.4 H INR 2.2 D-Dimer Quant (PE/DVT) Sodium Potassium Chloride Carbon Dioxide Anion Gap BUN Creatinine Estim Creat Clear Calc Est GFR (MDRD) Af Amer Est GFR (MDRD) Non-Af BUN/Creatinine Ratio Glucose Lactic Acid 1.6 Calcium Magnesium Ferritin Total Bilirubin AST ALT Alkaline Phosphatase Lactate Dehydrogenase Total Creatine Kinase Troponin I C-React Prot Ext Range Total Protein Albumin Globulin Albumin/Globulin Ratio Lipase Procalcitonin Urine Color Urine Clarity Urine pH Ur Specific [place] Urine Protein Urine Glucose (UA) Urine Ketones Urine Occult Blood Urine Nitrite Urine Bilirubin Urine Urobilinogen Ur Leukocyte Esterase Urine RBC Urine WBC Ur Squamous Epith Cells Urine Bacteria Urine Mucus COVID-19 (RUSSELL) Cancelled 03/13/20 03/13/20 03/13/20 02:40 02:40 02:40 WBC RBC Hgb Hct MCV MCH MCHC RDW Std Deviation RDW Coeff of Jason Plt Count MPV Immature Gran % (Auto) Neut % (Auto) Lymph % (Auto) [place] % (Auto) Eos % (Auto) Baso % (Auto) Absolute Neuts (auto) Absolute Lymphs (auto) Nucleated RBC % Differential Comment Platelet Estimate RBC Morphology PT 24.9 H INR 2.3 D-Dimer Quant (PE/DVT) 0.89 H* Sodium 134 L Potassium 3.8 Chloride 102 Carbon Dioxide 24.0 Anion Gap 8 BUN 14 Creatinine 1.01 Estim Creat Clear Calc 46.44 Est GFR (MDRD) Af Amer 69 Est GFR (MDRD) Non-Af 57 L BUN/Creatinine Ratio 13.9 Glucose 136 H Lactic Acid Calcium 8.6 Magnesium 1.4 L Ferritin 390 H Total Bilirubin 0.80 AST 27 ALT 27 Alkaline Phosphatase 82 Lactate Dehydrogenase 222 Total Creatine Kinase 92 Troponin I C-React Prot Ext Range 67.60 H Total Protein 7.4 Albumin 3.3 Globulin 4.1 Albumin/Globulin Ratio 0.8 L Lipase Procalcitonin 0.38 H Urine Color Urine Clarity Urine pH Ur Specific [place] Urine Protein Urine Glucose (UA) Urine Ketones Urine Occult Blood Urine Nitrite Urine Bilirubin Urine Urobilinogen Ur Leukocyte Esterase Urine RBC Urine WBC Ur Squamous Epith Cells Urine Bacteria Urine Mucus COVID-19 (RUSSELL) 03/13/20 02:40 WBC 13.6 H RBC 4.39 Hgb 14.0 Hct 41.6 MCV 94.8 MCH 31.9 MCHC 33.7 RDW Std Deviation 42.0 RDW Coeff of Jason 12.0 Plt Count 98 L MPV 9.6 Immature Gran % (Auto) 0.500 Neut % (Auto) 88.6 H Lymph % (Auto) 4.3 L [place] % (Auto) 4.9 Eos % (Auto) 1.5 Baso % (Auto) 0.2 Absolute Neuts (auto) 12.0 H Absolute Lymphs (auto) 0.59 L Nucleated RBC % 0 Differential Comment Platelet Estimate RBC Morphology PT INR D-Dimer Quant (PE/DVT) Sodium Potassium Chloride Carbon Dioxide Anion Gap BUN Creatinine Estim Creat Clear Calc Est GFR (MDRD) Af Amer Est GFR (MDRD) Non-Af BUN/Creatinine Ratio Glucose Lactic Acid Calcium Magnesium Ferritin Total Bilirubin AST ALT Alkaline Phosphatase Lactate Dehydrogenase Total Creatine Kinase Troponin I C-React Prot Ext Range Total Protein Albumin Globulin Albumin/Globulin Ratio Lipase Procalcitonin Urine Color Urine Clarity Urine pH Ur Specific [place] Urine Protein Urine Glucose (UA) Urine Ketones Urine Occult Blood Urine Nitrite Urine Bilirubin Urine Urobilinogen Ur Leukocyte Esterase Urine RBC Urine WBC Ur Squamous Epith Cells Urine Bacteria Urine Mucus COVID-19 (RUSSELL) - Other Studies Radiology: [] reviewed Other Studies: [] Route of nutrition/ use of supplements: [] Nutritional Intake: [] IV Site: [] Graf Catheter: [] - Physical Exam General: Alert, Oriented x3, Cooperative, No apparent distress HEENT: Atraumatic, PERRLA, EOMI Neck: Supple, No Nodes Lungs: Clear to auscultation, Diminished Cardiovascular: Regular rate, Regular Rhythm, No murmurs Abdomen: Soft, Non Tender, Non-Distended Extremities: No edema Skin: No rashes IV Site: Peripheral, without redness Musculoskeletal: No Tenderness to Palpation of Joints or Extremities Neurological: Cranial nerves II-XII grossly intact - Assessment/Plan Antibiotics: [] Assessment/Plan: [] Active and Suspected Problems (Last Updated 11/09/19 @ 15:32 by Elvia Hall) Suspected 2019 novel coronavirus infection (Acute) Pneumonia (Acute) Sepsis with fever, leukocytosis. Unclear source. Some possible atypical changes on cxr. UA neg for signs of infection. Pt rapidly improved after admission, now feeling back to normal and off O2 at the moment. Does not appear to be at high risk for covid exposure, but does have fever, weakness, chills, n/v/d, elevated d-dimer/crp/ferritin, and leukopenia. Initial covid pcr neg. Resp viral panel pending. UAg neg. PCT mildly elevated at 0.38. On ceftriaxone and doxy. At this point, would continue isolation and plan on d/c home tomorrow with one more week of quarantine if she continues to show improvement. Will follow, thank you.
--- NOTE | 2020-03-13 11:23 | CASEMGMT ---
[facility] Assessment Note Presentation: Suspected COVID- testing negative. Urine + Klebsiella pneumoniae Attempted to call pt in room, not able to participate in assessment at this time. Intro role of CM to daughter Brooke who lives near patient and assists her if needed. Daughter states her mother is independent, does not require any assistance except for driving. PCP: Dr. Reed Specialists: Dr. Ko, cardiology Preferred Pharmacy: [facility] Insurance: [employer] [facility] Prescription Benefit: yes LNOK : Daughter Brooke Living Arrangements: Lives in mobile home, few steps into home. Per daughter, pt is ambulatory, independent in ADL's. No care needs identified. Daughter did say pt has history of falls, usually when she has a UTI, and uses walker intermittently. States pt did fall from lift chair day prior to admission. Transportation: pt not driving currently because she needs cataract surgery. DME: walker- only uses intermittently. Other DME @ home, but not using: lift chair, cane, rollator, shower chair (was from who has ). HHC: none. Discussed if pt had contact Directions Home (listed from last admission that information was given). Daughter said she did not, and pt has not needed any assist. Patient DC goals: home DC PLAN: anticipate home on dc. RN CM advised to contact cm for any concerns/needs that may arise and CM will follow and assist with any needs that arise on dc. Luna ALMEIDA RN ACM
[2020-03-13] MEDS: Insulin Lispro 100 UNIT/ML INSULN.PEN SC (12:11)
[2020-03-13] MEDS: Doxycycline 100 MG CAPSULE PO ×2 (12:13→20:54)
[2020-03-13] MEDS: Acetaminophen 325 MG Tablet 650 MG PO ×2 (12:13→17:12)
[2020-03-13 12:25] LABS: Bedside Glucose 182 mg/dL (70-110)
[2020-03-13 17:20] LABS: Bedside Glucose 113 mg/dL (70-110)
--- NOTE | 2020-03-13 17:49 | NURSING ---
spo2 down 84-86% on ra when asleep. temp 102.1 when rechecked and pt did is with rn. spo2 up to 94% but then dropped back down to 86% after resting again. o2 on at 2l and will monitor.
[2020-03-13] MEDS: Gabapentin 300 MG Capsule PO (20:53)
[2020-03-13] MEDS: Atorvastatin Calcium 10 MG Tablet PO (20:59)
[2020-03-14] VITALS (11 sets, daily range): BP systolic 104–158; BP diastolic 51–80; PULSE 60–67; RESP 16–22; TEMP 36.3–38.8; O2SAT 92–98
[2020-03-14 00:16] LABS: Bedside Glucose 121 mg/dL (70-110)
[2020-03-14] MEDS: Acetaminophen 325 MG Tablet 650 MG PO (05:26)
[2020-03-14] MEDS: 0.9% Normal Saline 1,000 ML 100 ML IV ×2 (05:34→14:57)
[2020-03-14] MEDS: Budesonide Respules 0.5 MG/2 ML AMPUL.NEB. INHALATION (07:26)
[2020-03-14] MEDS: Albuterol 2.5 MG/3 ML VIAL.NEB. INHALATION (07:26)
--- NOTE | 2020-03-14 07:51 | NURSING ---
per pt BS was checked this morning by email production specialist RN and states it was 115. Does not want it rechecked at this time.
[2020-03-14 08:56] LABS: ALB/GLOB Ratio 0.8 RATIO (0.9-2.4); AST(SGOT) 25 U/L (15-37); Alanine Aminotransfer ALT/SGPT 23 U/L (13-56); Albumin, Serum 2.7 g/dL (3.2-5.0); Alkaline Phosphatase 64 U/L (45-117); Anion Gap 8 (5-15); BUN 15 mg/dL (7-18); Calcium,Total 8.3 mg/dL (8.5-10.1); Chloride 104 mmol/L (98-107); Creatinine, Serum 0.88 mg/dL (0.55-1.02); EST Glomerular Filtration Rate 67 mL/min (>60); Est Glom Filt Rate - Afr Amer 81 mL/min (>60); Globulin 3.5 g/dL (2.2-4.2); Glucose 118 mg/dL (74-106); Potassium 3.6 mmol/L (3.5-5.1); Protein, Total 6.2 g/dL (6.4-8.2); Sodium Level 135 mmol/L (136-145)
[2020-03-14 09:16] LABS: Bedside Glucose 115 mg/dL (70-110)
[2020-03-14] MEDS: Doxycycline 100 MG CAPSULE PO (10:08)
[2020-03-14] MEDS: Flecainide 100 MG Tablet PO (10:08)
[2020-03-14] MEDS: Famotidine 20 MG Tablet PO (10:08)
--- NOTE | 2020-03-14 10:10 | PCM.PN.HOSP ---
Patient Problems: Active and Suspected Problems (Last Updated 11/09/19 @ 15:32 by Elvia Hall) Suspected 2019 novel coronavirus infection (Acute) Pneumonia (Acute) Reason for Visit: Follow-up suspected acute viral pneumonia Subjective: Patient seen had a high fever last evening with T-max of 101.8 Objective: GENERAL: cooperative HEENT: Atraumatic; EYES; Anicteric, Normal Conjunctiva NECK; supple, normal thyroid, RESPIRATORY: Diminished to auscultation CARDIOVASCULAR: Regular S1 S2, GI: soft, normoactive bowel sounds, : No Renal angle tenderness; EXTREMITIES: No edema, no clubbing, MUSCULOSKELETAL: no muscle waisting NEURO: Awake; no lateralizing signs. SKIN: No Rash PSYCH; Flat affect Vitals/I&O's: Vital Signs Temp Pulse Resp BP Pulse Ox 97.7 F L 67 22 H 122/60 H 95 03/14/20 08:06 03/14/20 08:06 03/14/20 08:06 03/14/20 08:06 03/14/20 08:06 Oxygen Flow Rate (L/min) 2 Oxygen Delivery Method Room Air Weight: 84.6 kg Body Mass Index (BMI) 30.1 Finger Stick Blood Glucose 320 Intake and Output for Last 24 Hours 03/12/20 03/13/20 03/14/20 23:59 23:59 23:59 Intake Total 1000 / 1000 3155 / 3255 965 / 965 Output Total 275 / 275 Balance 1000 / 1000 3155 / 2980 690 / 690 Microbiology Past 72 Hours 03/13/20 23:51 Mucosa - Nasopharyngeal Coronavirus COVID-19 PCR - Final 03/13/20 07:30 Mucosa - Nasopharyngeal Respiratory Panel (PCR) - Final 03/12/20 20:28 Urine, Random Legionella Antigen - Final 03/12/20 20:28 Urine, Random Streptococcus pneumoniae Antigen (M - Final 03/12/20 23:10 Mucosa - Nasopharyngeal Coronavirus COVID-19 PCR - Final Laboratory Results 03/13/20 12:07: POC Glucose 182 H 03/13/20 16:57: POC Glucose 113 H 03/13/20 20:24: POC Glucose 121 H 03/13/20 23:51: COVID-19 (RUSSELL) Cancelled 03/14/20 06:50: POC Glucose 115 H 03/14/20 08:20: Sodium 135 L, Potassium 3.6, Chloride 104, Carbon Dioxide 23.0, Anion Gap 8, BUN 15, Creatinine 0.88, Estim Creat Clear Calc 53.30, Est GFR (MDRD) Af Amer 81, Est GFR (MDRD) Non-Af 67, BUN/Creatinine Ratio 17.0, Glucose 118 H, Calcium 8.3 L, Magnesium 2.0, Total Bilirubin 0.30, AST 25, ALT 23, Alkaline Phosphatase 64, Total Protein 6.2 L, Albumin 2.7 L, Globulin 3.5, Albumin/Globulin Ratio 0.8 L Current Medications Acetaminophen (Tylenol) 650 mg PO Q6H PRN PRN PRN Reason: Pain Score 1-10/Temp > 100.7 F Last Admin: 03/14/20 05:26 Dose: 650 mg Documented by: Al Hydroxide/Mg Hydroxide (Mylanta Ii) 30 ml PO Q6H PRN PRN PRN Reason: Gastric Burning Albuterol Sulfate (Ventolin Aerosols) 2.5 mg INHALATION Q4H PRN PRN PRN Reason: dyspnea, wheezing Albuterol Sulfate (Ventolin Aerosols) 2.5 mg INHALATION Q6HWA.RT [facility] Last Admin: 03/14/20 07:26 Dose: 2.5 mg Documented by: Atorvastatin Calcium (Lipitor) 10 mg PO QHS [facility] Last Admin: 03/13/20 20:59 Dose: 10 mg Documented by: Budesonide (Pulmicort Aerosol) 0.5 mg INHALATION Q12H.RT [facility] Last Admin: 03/14/20 07:26 Dose: 0.5 mg Documented by: Dextrose (D50w Syringe) 0 gm IV X1 PRN; Protocol PRN Reason: Hypoglycemia Doxycycline Monohydrate (Doxycycline) 100 mg PO BID [facility] Last Admin: 03/14/20 10:08 Dose: 100 mg Documented by: Famotidine (Pepcid) 20 mg PO BID [facility] Last Admin: 03/14/20 10:08 Dose: 20 mg Documented by: Flecainide Acetate (Tambocor) 100 mg PO Q12 [facility] Last Admin: 03/14/20 10:08 Dose: 100 mg Documented by: Gabapentin (Neurontin) 300 mg PO QHS [facility] Last Admin: 03/13/20 20:53 Dose: 300 mg Documented by: Glucagon () 1 mg IM .X1 PRN PRN Reason: Hypoglycemia Guaifenesin (Robitussin) 20 ml PO Q4H PRN PRN PRN Reason: COUGH Hydralazine HCl (Apresoline Iv) 10 mg IV Q4H PRN PRN PRN Reason: SBP > 160 Sodium Chloride () 1,000 mls @ 100 mls/hr IV .Q10H [facility] Last Admin: 03/14/20 05:34 Dose: 100 mls/hr Documented by: Ceftriaxone Sodium 2 gm/ (Sodium Chloride) 50 mls @ 100 mls/hr IV Q24@2200 [facility] Last Infusion: 03/13/20 22:10 Dose: Infused Documented by: Sodium Chloride () 250 mls @ 15 mls/hr IV .[id number] PRN PRN Reason: Saline Flush Sodium Chloride () 250 mls @ 15 mls/hr IV .[id number] PRN PRN Reason: Additional IVPB Infusion Insulin Human Lispro (Humalog Kwikpen (Bkc)) 0 unit SC 4X/DAYCM [facility]; Protocol Last Admin: 03/14/20 07:52 Dose: Not Given Documented by: Magnesium Hydroxide (Milk Of Magnesia) 30 ml PO DAILY PRN PRN PRN Reason: Constipation Melatonin (Melatonin) 3 mg PO QHS PRN PRN PRN Reason: INSOMNIA Morphine Sulfate () 2 mg IV Q3H PRN PRN PRN Reason: Pain Score 6-10/10 Nitroglycerin (Nitrostat) 0.4 mg SUBLINGUAL Q5M PRN PRN Reason: CARDIAC/CHEST PAIN Ondansetron HCl (Zofran) 4 mg IV Q8H PRN PRN PRN Reason: NAUSEA/VOMITING Oxycodone HCl (Oxyir) 5 mg PO Q4H PRN PRN PRN Reason: Pain Score 4-5/10 Prochlorperazine Edisylate (Compazine Iv) 5 mg IV Q4H PRN PRN PRN Reason: Breakthrough Nausea/Vomiting Psyllium Hydrophilic Mucilloid (Metamucil) 1 packet PO DAILY PRN PRN PRN Reason: Constipation Senna/Docusate Sodium (Senokot-S, Beth-Colace) 2 tablet PO BID PRN PRN PRN Reason: Constipation Sodium Chloride () 10 - 40 ml IV UD PRN PRN Reason: SALINE FLUSH Throat Lozenges (Cepacol Sore Throat Lozenge) 1 lozenge MUCOUS MEM Q2H PRN PRN PRN Reason: SORE THROAT Warfarin Sodium (Coumadin (Pbkc)) 5 mg PO DAILY@1700 [facility]; Protocol Last Admin: 03/13/20 17:12 Dose: 5 mg Documented by: CICI Vital Signs/Narrative: Vital Signs Temp Pulse Resp BP Pulse Ox 03/14/20 08:06 97.7 F L 67 22 H 122/60 H 95 03/14/20 07:32 61 03/14/20 07:29 63 16 98 03/14/20 06:52 99.7 F H 63 22 H 104/51 L 98 Medical Necessity - Tobacco Use Smoking Status: Never smoker Tobacco Use: Non-smoker Assessment/Plan All Active Problems (Last Updated 11/09/19 @ 15:32 by Elvia Hall) Encephalopathy acute (Acute) Falls (Acute) UTI (urinary tract infection) (Acute) Suspected 2018 novel coronavirus infection (Acute) Pneumonia (Acute) S/P ablation of atrial flutter (Resolved 04/01/19) Subtherapeutic international normalized ratio (INR) (Acute) Viral URI with cough (Resolved) Patient is a 75-year-old lady who presented with persistent cough. Imaging studies obtained demonstrated Mild bibasilar pulmonary opacities hypoventilatory changes versus atypical viral pneumonia patient placed in isolation whilst COVID 19 is being ruled out 1. Acute viral syndrome ?Imaging studies obtained demonstrated Mild bibasilar pulmonary opacities hypoventilatory changes versus atypical viral pneumonia patient placed in isolation whilst COVID 19 is being ruled out she was started on broad-spectrum antibiotic therapy with Rocephin and Zithromax (Zithromax switched to doxycycline in view of patient being on flecainide) ?03/14/2020: Patient repeat COVID test came back negative. He however had fever with T-max of 101.8 plan therefore is to observe for 1 additional day 2. 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 Mild intermittent asthma ?Patient is on Symbicort as well as as needed albuterol discontinue 4. Diabetes mellitus type II ~Controlled patient's oral hypoglycemics held. Placed on long acting insulin, Accu-Cheks a.c. and at bedtime and covered with sliding scale insulin 5. Essential hypertension ~ blood pressure controlled, home medications continued with dose adjustment as needed 6. Dyslipidemia ~patient is on statin therapy, continued at home dose 7. Paroxysmal A. fib/flutter ?Patient has had previous ablation currently on flecainide as well as systemic anticoagulation with therapeutic INR 8. 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 Obesity with BMI of 30.1 ?Weight loss advised 10. Obstructive sleep apnea ?Apparently noncompliant with CPAP therapy 11. DVT prophylaxis ?Patient on Coumadin Inpatient E&M: 83082 Subs Hosp L2
--- NOTE | 2020-03-14 16:02 | DCINST_ITS ---
- Discharge Diagnoses Current Active Problems: Current Active and Chronic Problems (Last Updated 11/09/19 @ 15:32 by Elvia Hall) Suspected 2019 novel coronavirus infection (Acute) Pneumonia (Acute) You will use the following diet at home:: Calorie/Carbohydrate Controlled (specify 1200, 1400, etc) - 1800 Discharge Activity: Return to Normal Activity, - - Patient to self quarantine for 10 additional days Allergies/Adverse Reactions: Allergies amoxicillin Allergy (Severe, Verified 03/12/20 18:43) Hives aspirin Allergy (Severe, Verified 03/12/20 18:43) Hives, SOB Sulfa (Sulfonamide Antibiotics) Allergy (Severe, Verified 03/12/20 18:43) Hives Medications to take at Discharge magnesium oxide 400 mg PO DAILY cap 11/18/17 metformin 500 mg tablet 1,000 mg PO BID tab 02/13/18 glimepiride 2 mg tablet 2 mg PO DAILY 10/11/18 budesonide-formoterol HFA 160 mcg-4.5 mcg/actuation aerosol inhaler 2 puff INHALATION BID 11/04/18 Albuterol IH (ProAir) [Proair Hfa] 1 puff INHALATION Q4H PRN PRN 11/18/18 Oxycodone HCl/Acetaminophen [Percocet 5-325] 1 tab PO Q6H PRN PRN 11/18/18 Warfarin [Coumadin] 5 mg PO DAILY 11/18/18 Atorvastatin Calcium 10 mg PO QHS 12/11/19 Flecainide Acetate 100 mg PO Q12H 12/11/19 Gabapentin [Neurontin] 300 mg PO QHS 12/11/19 Primary Care Physician: Ro Reed MD [Primary Care Provider] - Please follow up with your Primary Care Physician in: in 1 week Test Results: Test results from this visit will be discussed in further detail at your follow- up appointment, if applicable. Proposed Discharge Date: 03/14/20
--- NOTE | 2020-03-14 16:07 | DS.PCM_ITS ---
Discharge Date and Diagnosis - Problem List Patient Problems: Active and Suspected Problems (Last Updated 11/09/19 @ 15:32 by Elvia Hall) Suspected 2019 novel coronavirus infection (Acute) Pneumonia (Acute) Date of Admission: 03/12/20 Date of Discharge: 03/14/20 - Primary Discharge Diagnosis Acute Problems: Active Problems (Last Updated 11/09/19 @ 15:32 by Elvia Hall) Suspected 2019 novel coronavirus infection (Acute) Pneumonia (Acute) - Secondary Discharge Diagnosis Chronic Problems: Chronic Problems (Last Updated 11/09/19 @ 15:32 by Elvia Hall) Abnormal EKG (Chronic) Ulcer of right lower extremity with fat layer exposed (Chronic) Presence of permanent cardiac pacemaker (Chronic 04/01/19) Implant @ [facility] by Dr. 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) Obesity (Chronic) Diabetes mellitus (Chronic) Other secondary pulmonary hypertension (Chronic) Obesity (Chronic) Pulmonary hypertension (Chronic) RAMESH (obstructive sleep apnea) (Chronic) Asthma (Chronic) Hyperlipidemia (Chronic) Type 2 diabetes mellitus (Chronic) Hypertension (Chronic) [facility] (current) use of anticoagulants (Chronic) Atrial fibrillation (Chronic) Hospital Course and Treatment Imaging Results: Clinical Impression(s) from Imaging Studies Abdomen/Pelvis CT 03/12/20 19:41 IMPRESSION: stable severe right hydronephrosis. There is stable significant distention of the right renal pelvis.. The findings are suspicious for UPJ obstruction or partial obstruction. There is mild distention of the more distal right ureter unchanged. There is new moderate left hydronephrosis and mild left hydroureter. There is moderate distention of the bladder. Bladder outlet obstruction cannot be excluded. Delayed imaging could be performed to evaluate for ureteral obstruction. Retrograde study could also be performed. Stable cardiomegaly, cardiac pacemaker Mild bibasilar pulmonary opacities hypoventilatory changes versus infectious cellulitis, atypical viral pneumonia cannot be excluded. Likely hepatic cirrhosis mild distention of the gallbladder which could be further evaluated with ultrasound Electronically Signed: Blake Brewer, at 22:12 EDT Tel , Service support , Chest X-Ray 03/12/20 21:30 IMPRESSION: Mild cardiomegaly Cardiac pacemaker Mild bibasilar pulmonary opacities hypoventilatory changes versus infectious alveolitis. Atypical viral pneumonia cannot be excluded. Electronically Signed: Blake Brewer, at 21:54 EDT Tel , Service support , Operations: None Summary of Care Provided: Patient is a 75-year-old lady who presented with persistent cough. Imaging studies obtained demonstrated Mild bibasilar pulmonary opacities hypoventilatory changes versus atypical viral pneumonia patient placed in isolation whilst COVID 19 is being ruled out 1. Acute viral syndrome ?Imaging studies obtained demonstrated Mild bibasilar pulmonary opacities hypoventilatory changes versus atypical viral pneumonia patient placed in isolation whilst COVID 19 is being ruled out she was started on broad-spectrum antibiotic therapy with Rocephin and Zithromax (Zithromax switched to do xycycline in view of patient being on flecainide) ?03/14/2020: Patient repeat COVID test came back negative. He however had fever with T-max of 101.8 plan therefore is to observe for 1 additional day Case was discussed with Dr. Mary with infectious disease we felt patient condition had stabilized and was ok to be discharged home. Patient was instructed to self current time for 10 additional days. She lives by herself with her daughter next door 2. 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 Mild intermittent asthma ?Patient is on Symbicort as well as as needed albuterol discontinue 4. Diabetes mellitus type II ~Controlled patient's oral hypoglycemics held. Placed on long acting insulin, Accu-Cheks a.c. and at bedtime and covered with sliding scale insulin 5. Essential hypertension ~ blood pressure controlled, home medications continued with dose adjustment as needed 6. Dyslipidemia ~patient is on statin therapy, continued at home dose 7. Paroxysmal A. fib/flutter ?Patient has had previous ablation currently on flecainide as well as systemic anticoagulation with therapeutic INR 8. 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 Obesity with BMI of 30.1 ?Weight loss advised 10. Obstructive sleep apnea ?Apparently noncompliant with CPAP therapy 11. DVT prophylaxis ?Patient on Coumadin Patient Problems: Active and Suspected Problems (Last Updated 11/09/19 @ 15:32 by Elvia Hall) Suspected 2019 novel coronavirus infection (Acute) Pneumonia (Acute) - Physical Exam Vitals/I&O's: Vital Signs Temp Pulse Resp BP Pulse Ox 97.3 F L 67 18 109/80 98 03/14/20 14:00 03/14/20 14:00 03/14/20 14:00 03/14/20 14:00 03/14/20 14:00 Oxygen Flow Rate (L/min) 2 Oxygen Delivery Method Room Air Weight: 84.6 kg Body Mass Index (BMI) 30.1 Finger Stick Blood Glucose 320 Intake and Output for Last 24 Hours 03/12/20 03/13/20 03/14/20 23:59 23:59 23:59 Intake Total 1000 / 1000 3155 / 3255 2503.33 / 2503.33 Output Total 1325 / 1325 Balance 1000 / 1000 3155 / 2980 1178.33 / 1178.33 General: Alert Lungs: Diminished Psych/Mental Status: Normal Affect Microbiology Past 72 Hours 03/13/20 23:51 Mucosa - Nasopharyngeal Coronavirus COVID-19 PCR - Final 03/13/20 07:30 Mucosa - Nasopharyngeal Respiratory Panel (PCR) - Final 03/12/20 20:28 Urine, Random Legionella Antigen - Final 03/12/20 20:28 Urine, Random Streptococcus pneumoniae Antigen (M - Final 03/12/20 23:10 Mucosa - Nasopharyngeal Coronavirus COVID-19 PCR - Final Laboratory Results 03/13/20 16:57: POC Glucose 113 H 03/13/20 20:24: POC Glucose 121 H 03/13/20 23:51: COVID-19 (RUSSELL) Cancelled 03/14/20 06:50: POC Glucose 115 H 03/14/20 08:20: Sodium 135 L, Potassium 3.6, Chloride 104, Carbon Dioxide 23.0, Anion Gap 8, BUN 15, Creatinine 0.88, Estim Creat Clear Calc 53.30, Est GFR (MDRD) Af Amer 81, Est GFR (MDRD) Non-Af 67, BUN/Creatinine Ratio 17.0, Glucose 118 H, Calcium 8.3 L, Magnesium 2.0, Total Bilirubin 0.30, AST 25, ALT 23, Alkaline Phosphatase 64, Total Protein 6.2 L, Albumin 2.7 L, Globulin 3.5, Albumin/Globulin Ratio 0.8 L Current Medications Acetaminophen (Tylenol) 650 mg PO Q6H PRN PRN PRN Reason: Pain Score 1-10/Temp > 100.7 F Last Admin: 03/14/20 05:26 Dose: 650 mg Documented by: Al Hydroxide/Mg Hydroxide (Mylanta Ii) 30 ml PO Q6H PRN PRN PRN Reason: Gastric Burning Albuterol Sulfate (Ventolin Aerosols) 2.5 mg INHALATION Q4H PRN PRN PRN Reason: dyspnea, wheezing Albuterol Sulfate (Ventolin Aerosols) 2.5 mg INHALATION Q6HWA.RT [facility] Last Admin: 03/14/20 13:00 Dose: Not Given Documented by: Atorvastatin Calcium (Lipitor) 10 mg PO QHS [facility] Last Admin: 03/13/20 20:59 Dose: 10 mg Documented by: Budesonide (Pulmicort Aerosol) 0.5 mg INHALATION Q12H.RT [facility] Last Admin: 03/14/20 07:26 Dose: 0.5 mg Documented by: Dextrose (D50w Syringe) 0 gm IV X1 PRN; Protocol PRN Reason: Hypoglycemia Famotidine (Pepcid) 20 mg PO BID [facility] Last Admin: 03/14/20 10:08 Dose: 20 mg Documented by: Flecainide Acetate (Tambocor) 100 mg PO Q12 [facility] Last Admin: 03/14/20 10:08 Dose: 100 mg Documented by: Gabapentin (Neurontin) 300 mg PO QHS [facility] Last Admin: 03/13/20 20:53 Dose: 300 mg Documented by: Glucagon () 1 mg IM .X1 PRN PRN Reason: Hypoglycemia Guaifenesin (Robitussin) 20 ml PO Q4H PRN PRN PRN Reason: COUGH Hydralazine HCl (Apresoline Iv) 10 mg IV Q4H PRN PRN PRN Reason: SBP > 160 Sodium Chloride () 1,000 mls @ 100 mls/hr IV .Q10H [facility] Last Admin: 03/14/20 14:57 Dose: 100 mls/hr Documented by: Sodium Chloride () 250 mls @ 15 mls/hr IV .[id number] PRN PRN Reason: Saline Flush Sodium Chloride () 250 mls @ 15 mls/hr IV .[id number] PRN PRN Reason: Additional IVPB Infusion Insulin Human Lispro (Humalog Sannapen (Bkc)) 0 unit SC 4X/DAYCM [facility]; Protocol Last Admin: 03/14/20 12:04 Dose: Not Given Documented by: Magnesium Hydroxide (Milk Of Magnesia) 30 ml PO DAILY PRN PRN PRN Reason: Constipation Melatonin (Melatonin) 3 mg PO QHS PRN PRN PRN Reason: INSOMNIA Morphine Sulfate () 2 mg IV Q3H PRN PRN PRN Reason: Pain Score 6-10/10 Nitroglycerin (Nitrostat) 0.4 mg SUBLINGUAL Q5M PRN PRN Reason: CARDIAC/CHEST PAIN Ondansetron HCl (Zofran) 4 mg IV Q8H PRN PRN PRN Reason: NAUSEA/VOMITING Oxycodone HCl (Oxyir) 5 mg PO Q4H PRN PRN PRN Reason: Pain Score 4-5/10 Prochlorperazine Edisylate (Compazine Iv) 5 mg IV Q4H PRN PRN PRN Reason: Breakthrough Nausea/Vomiting Psyllium Hydrophilic Mucilloid (Metamucil) 1 packet PO DAILY PRN PRN PRN Reason: Constipation Senna/Docusate Sodium (Senokot-S, Beth-Colace) 2 tablet PO BID PRN PRN PRN Reason: Constipation Sodium Chloride () 10 - 40 ml IV UD PRN PRN Reason: SALINE FLUSH Throat Lozenges (Cepacol Sore Throat Lozenge) 1 lozenge MUCOUS MEM Q2H PRN PRN PRN Reason: SORE THROAT Warfarin Sodium (Coumadin (Pbkc)) 5 mg PO DAILY@1700 [facility]; Protocol Last Admin: 03/13/20 17:12 Dose: 5 mg Documented by: Discharge Diet: 1800 Calorie Control Diet Discharge Activity: Return to Normal Activity, - - Patient to self quarantine for 10 additional days Home Medications: Medications to take at Discharge magnesium oxide 400 mg PO DAILY cap 11/18/17 metformin 500 mg tablet 1,000 mg PO BID tab 02/13/18 glimepiride 2 mg tablet 2 mg PO DAILY 10/11/18 budesonide-formoterol HFA 160 mcg-4.5 mcg/actuation aerosol inhaler 2 puff INHALATION BID 11/04/18 Albuterol IH (ProAir) [Proair Hfa] 1 puff INHALATION Q4H PRN PRN 11/18/18 Oxycodone HCl/Acetaminophen [Percocet 5-325] 1 tab PO Q6H PRN PRN 11/18/18 Warfarin [Coumadin] 5 mg PO DAILY 11/18/18 Atorvastatin Calcium 10 mg PO QHS 12/11/19 Flecainide Acetate 100 mg PO Q12H 12/11/19 Gabapentin [Neurontin] 300 mg PO QHS 12/11/19 Primary Care Physician: Ro Reed MD [Primary Care Provider] - Please follow up with your Primary Care Physician in: in 1 week Disposition: Home Minutes spent on discharge:: 35 Patient Condition:: Stable Medical Necessity - Tobacco Use Smoking Status: Never smoker Tobacco Use: Non-smoker Meaningful Use Info Meaningful Use Diagnoses (Choose all that apply): None applicable Inpatient E&M: 79841 Disch Hosp
--- NOTE | 2020-03-14 16:25 | PCM.PN.ID ---
Patient Problems: Active and Suspected Problems (Last Updated 11/09/19 @ 15:32 by Elvia Hall) Suspected 2019 novel coronavirus infection (Acute) Pneumonia (Acute) Subjective: Feeling well, no fever, no cough, no dyspnea. - Physical Exam Vitals/I&O's: Vital Signs Temp Pulse Resp BP Pulse Ox 97.3 F L 67 18 109/80 98 03/14/20 14:00 03/14/20 14:00 03/14/20 14:00 03/14/20 14:00 03/14/20 14:00 Oxygen Flow Rate (L/min) 2 Oxygen Delivery Method Room Air Weight: 84.6 kg Body Mass Index (BMI) 30.1 Finger Stick Blood Glucose 320 Intake and Output for Last 24 Hours 03/12/20 03/13/20 03/14/20 23:59 23:59 23:59 Intake Total 1000 / 1000 3155 / 3255 2503.33 / 2503.33 Output Total 1325 / 1325 Balance 1000 / 1000 3155 / 2980 1178.33 / 1178.33 General: Alert, Cooperative, No apparent distress Lungs: Clear to auscultation, Normal air movement Cardiovascular: Regular rate, Regular Rhythm Abdomen: Soft, Non Tender, Non-Distended Skin: No rashes Microbiology Past 72 Hours 03/13/20 23:51 Mucosa - Nasopharyngeal Coronavirus COVID-19 PCR - Final 03/13/20 07:30 Mucosa - Nasopharyngeal Respiratory Panel (PCR) - Final 03/12/20 20:28 Urine, Random Legionella Antigen - Final 03/12/20 20:28 Urine, Random Streptococcus pneumoniae Antigen (M - Final 03/12/20 23:10 Mucosa - Nasopharyngeal Coronavirus COVID-19 PCR - Final Laboratory Results 03/13/20 16:57: POC Glucose 113 H 03/13/20 20:24: POC Glucose 121 H 03/13/20 23:51: COVID-19 (RUSSELL) Cancelled 03/14/20 06:50: POC Glucose 115 H 03/14/20 08:20: Sodium 135 L, Potassium 3.6, Chloride 104, Carbon Dioxide 23.0, Anion Gap 8, BUN 15, Creatinine 0.88, Estim Creat Clear Calc 53.30, Est GFR (MDRD) Af Amer 81, Est GFR (MDRD) Non-Af 67, BUN/Creatinine Ratio 17.0, Glucose 118 H, Calcium 8.3 L, Magnesium 2.0, Total Bilirubin 0.30, AST 25, ALT 23, Alkaline Phosphatase 64, Total Protein 6.2 L, Albumin 2.7 L, Globulin 3.5, Albumin/Globulin Ratio 0.8 L Current Medications Acetaminophen (Tylenol) 650 mg PO Q6H PRN PRN PRN Reason: Pain Score 1-10/Temp > 100.7 F Last Admin: 03/14/20 05:26 Dose: 650 mg Documented by: Al Hydroxide/Mg Hydroxide (Mylanta Ii) 30 ml PO Q6H PRN PRN PRN Reason: Gastric Burning Albuterol Sulfate (Ventolin Aerosols) 2.5 mg INHALATION Q4H PRN PRN PRN Reason: dyspnea, wheezing Albuterol Sulfate (Ventolin Aerosols) 2.5 mg INHALATION Q6HWA.RT [facility] Last Admin: 03/14/20 13:00 Dose: Not Given Documented by: Atorvastatin Calcium (Lipitor) 10 mg PO QHS [facility] Last Admin: 03/13/20 20:59 Dose: 10 mg Documented by: Budesonide (Pulmicort Aerosol) 0.5 mg INHALATION Q12H.RT [facility] Last Admin: 03/14/20 07:26 Dose: 0.5 mg Documented by: Dextrose (D50w Syringe) 0 gm IV X1 PRN; Protocol PRN Reason: Hypoglycemia Famotidine (Pepcid) 20 mg PO BID [facility] Last Admin: 03/14/20 10:08 Dose: 20 mg Documented by: Flecainide Acetate (Tambocor) 100 mg PO Q12 [facility] Last Admin: 03/14/20 10:08 Dose: 100 mg Documented by: Gabapentin (Neurontin) 300 mg PO QHS [facility] Last Admin: 03/13/20 20:53 Dose: 300 mg Documented by: Glucagon () 1 mg IM .X1 PRN PRN Reason: Hypoglycemia Guaifenesin (Robitussin) 20 ml PO Q4H PRN PRN PRN Reason: COUGH Hydralazine HCl (Apresoline Iv) 10 mg IV Q4H PRN PRN PRN Reason: SBP > 160 Sodium Chloride () 1,000 mls @ 100 mls/hr IV .Q10H [facility] Last Admin: 03/14/20 14:57 Dose: 100 mls/hr Documented by: Sodium Chloride () 250 mls @ 15 mls/hr IV .[id number] PRN PRN Reason: Saline Flush Sodium Chloride () 250 mls @ 15 mls/hr IV .[id number] PRN PRN Reason: Additional IVPB Infusion Insulin Human Lispro (Humalog Kwikpen (Bkc)) 0 unit SC 4X/DAYCM [facility]; Protocol Last Admin: 03/14/20 12:04 Dose: Not Given Documented by: Magnesium Hydroxide (Milk Of Magnesia) 30 ml PO DAILY PRN PRN PRN Reason: Constipation Melatonin (Melatonin) 3 mg PO QHS PRN PRN PRN Reason: INSOMNIA Morphine Sulfate () 2 mg IV Q3H PRN PRN PRN Reason: Pain Score 6-10/10 Nitroglycerin (Nitrostat) 0.4 mg SUBLINGUAL Q5M PRN PRN Reason: CARDIAC/CHEST PAIN Ondansetron HCl (Zofran) 4 mg IV Q8H PRN PRN PRN Reason: NAUSEA/VOMITING Oxycodone HCl (Oxyir) 5 mg PO Q4H PRN PRN PRN Reason: Pain Score 4-5/10 Prochlorperazine Edisylate (Compazine Iv) 5 mg IV Q4H PRN PRN PRN Reason: Breakthrough Nausea/Vomiting Psyllium Hydrophilic Mucilloid (Metamucil) 1 packet PO DAILY PRN PRN PRN Reason: Constipation Senna/Docusate Sodium (Senokot-S, Beth-Colace) 2 tablet PO BID PRN PRN PRN Reason: Constipation Sodium Chloride () 10 - 40 ml IV UD PRN PRN Reason: SALINE FLUSH Throat Lozenges (Cepacol Sore Throat Lozenge) 1 lozenge MUCOUS MEM Q2H PRN PRN PRN Reason: SORE THROAT Warfarin Sodium (Coumadin (Pbkc)) 5 mg PO DAILY@1700 [facility]; Protocol Last Admin: 03/13/20 17:12 Dose: 5 mg Documented by: Medical Necessity - Tobacco Use Smoking Status: Never smoker Tobacco Use: Non-smoker Route of nutrition/ use of supplements: [] Nutritional Intake: [] IV Site: [] Graf Catheter: [] - Assessment/Plan Antibiotics: [] Assessment/Plan: [] Active and Suspected Problems (Last Updated 11/09/19 @ 15:32 by Elvia Hall) Suspected 2019 novel coronavirus infection (Acute) Pneumonia (Acute) Sepsis with fever, leukocytosis. Unclear source. Some possible atypical changes on cxr. UA neg for signs of infection. Pt rapidly improved after admission, now feeling back to normal and off O2 at the moment. Does not appear to be at high risk for covid exposure, but does have fever, weakness, chills, n/v/d, elevated d-dimer/crp/ferritin, and leukopenia. Initial covid pcr neg. Repeat neg. Asymptomatic fever overnight. Cxs remain neg. Recommend d/c home off of abx, quarantine for 10 days given suspicion for covid despite neg testing. Will follow as needed, d/w nursing and Dr. Helm
[2020-03-14 20:26] LABS: Bedside Glucose 116 mg/dL (70-110)
--- NOTE | 2020-03-15 13:27 | CASEMGMT ---
[facility] CM DC PHONE CALL DC DATE: 03.14.2020 DC DISPOSITION: Home DC DIAGNOSIS: UTI, LACE/STRATA: 08/28 F/U APPTS MADE PRIOR TO DC: no PRESCRIPTIONS ACQUIRED BY PT: yes Intro role of CM to patient via phone. Pt states she has no questions re: instructions, medications or f/u- will call to make appointments. No care improvement suggestions were given. Pt states she had excellent care. Luna ALMEIDA RN ACM
== END 2020-03-14 17:30 | disposition home or self-care (01) | DRG 194 ==
LOC: ED 23:03 → ICU 03-13 02:14
PROVIDERS: Admitting Provider Family Medicine; Emergency Provider Emergency Medicine; PCP Internal Medicine; Visit Provider Internal Medicine
DX: J12.9 Viral pneumonia, unspecified (principal); Q62.39 Other obstructive defects of renal pelvis and ureter; I48.20 Chronic atrial fibrillation, unspecified; Q62.0 Congenital hydronephrosis; B34.9 Viral infection, unspecified; J45.20 Mild intermittent asthma, uncomplicated; E78.5 Hyperlipidemia, unspecified; E11.9 Type 2 diabetes mellitus without complications; G47.33 Obstructive sleep apnea (adult) (pediatric); I10 Essential (primary) hypertension; Z68.30 Body mass index [BMI] 30.0-30.9, adult; E66.09 Other obesity due to excess calories; Z91.19 Patient's noncompliance with other medical treatment and regimen; I48.0 Paroxysmal atrial fibrillation; Z95.0 Presence of cardiac pacemaker; I45.9 Conduction disorder, unspecified; I27.29 Other secondary pulmonary hypertension
CPT/HCPCS: 71045; 74177; 80053; 81001; 82550; 82728; 82962; 83605; 83615; 83690; 83735; 84145; 84484; 85025; 85379; 85610; 86140; 87449; 87633; 87635; 93005; 94640; 96361; 96374; 97162; 97166; 97802; 99251; 99285; G2023; J7030; Q9967; A4216; G0463; J0696; J2405; U0002; U0004

== ENCOUNTER 2020-06-07 11:27 | Outpatient (RCR) | payer MEDICARE, SELFPAY ==
[2020-03-13 02:11] VITALS: BMI 30.1
[2020-06-07 08:50] VITALS: BMI 30.9
[2020-06-07 12:21] LABS: International Normalized Ratio 2.4; Prothrombin Time (Protime)PT. 25.4 SECONDS (11.7-14.9)
[2020-06-07 12:28] LABS: AST(SGOT) 18 U/L (15-37); Alanine Aminotransfer ALT/SGPT 21 U/L (13-56); Albumin, Serum 3.8 g/dL (3.2-5.0); Alkaline Phosphatase 90 U/L (45-117); Bilirubin, Direct 0.12 mg/dL (0.00-0.30); Cholesterol 155 mg/dL (200); High Density Lipoprotein 59 mg/dL; Protein, Total 7.8 g/dL (6.4-8.2); Triglycerides 152 mg/dL; Very Low Density Lipoprotein 30 mg/dL (5-40)
== END 2020-06-25 18:00 | disposition home or self-care (01) ==
LOC: LAB 11:27
PROVIDERS: Family Provider Internal Medicine; PCP Internal Medicine; Referring Provider Internal Medicine Cardiovascular Disease; Visit Provider Internal Medicine Cardiovascular Disease
DX: I48.92 Unspecified atrial flutter (principal); E78.5 Hyperlipidemia, unspecified; Z79.01 Long term (current) use of anticoagulants
CPT/HCPCS: 36415; 80061; 80076; 85610

== ENCOUNTER → 2020-07-06 05:27 | Outpatient (CLI) | payer MEDICARE, SELFPAY ==
[2020-06-07 08:50] VITALS: BMI 30.9
--- NOTE | 2020-07-06 11:47 | STRESSREP ---
Stress Test Report Date: 07/06/2020 Procedure: Pharmacologic stress nuclear imaging study Indications: Atrial fibrillation, flecainide therapy Consent: Per the patient Procedure: The patient underwent pharmacologic (Regadenoson) evaluation with a peak heart rate of 74 beats per minute (50 %predicted maximal heart rate) and a peak blood pressure of 138/80 mmHg. The baseline ECG demonstrated atrial fibrillation. EKG during lexiscan infusion revealed no significant ischemic changes. EKG post infusion revealed no significant ischemic changes [There was no complaint of chest discomfort during pharmacologic infusion or recovery]. The examination was discontinued secondary to completion of protocol. Impression: 1. Lexiscan stress test test is negative for Lexiscan infusion induced EKG changes of ischemia. 2. Lexiscan stress test test is negative for Lexiscan infusion induced chest pain. 3. Results of the nuclear portion of the test is as below Myocardial perfusion imaging study: Technique: The patient was injected with 13.9 millicuries of technetium 99m Cardiolite and subsequently rest SPECT Cardiolite nuclear imaging was obtained in the horizontal long, vertical long, and short axis views. The patient underwent pharmacologic (Regadenoson) evaluation. Please see above for details. The patient was injected with 44.2 millicuries of technetium 99m Cardiolite and subsequently stress SPECT Cardiolite nuclear imaging was obtained in the horizontal long, vertical long, and short axis views. A gated Cardiolite study at peak stress was obtained. Interpretation: Rest and stress SPECT Cardiolite nuclear imaging status post realignment, normalization, and attenuation correction demonstrate mild decreased radioisotope uptake in the anterior wall on both the rest and stress images prior to attenuation correction. After attenuation correction there is normal myocardial radioisotope uptake. These findings are suggestive of breast attenuation artifact. There is no evidence of significant ischemia or infarction. Gating could not be performed and ejection fraction could not be estimated. Impression: 1. There is no evidence of significant ischemia or infarction. 2. Estimated ejection fraction could not be estimated. This note was generated with [employer] software. It may contain incorrect words, spelling, and punctuation that were not noted in checking the note before signing.
== END ==
PROVIDERS: PCP Internal Medicine; Referring Provider Nurse Practitioner Family; Visit Provider Nurse Practitioner Family
DX: I48.92 Unspecified atrial flutter (principal); R94.31 Abnormal electrocardiogram [ECG] [EKG]; E11.9 Type 2 diabetes mellitus without complications; I27.29 Other secondary pulmonary hypertension; J45.909 Unspecified asthma, uncomplicated; I10 Essential (primary) hypertension; Z51.81 Encounter for therapeutic drug level monitoring; Z79.899 Other long term (current) drug therapy
CPT/HCPCS: 78452; 93017; A9500; A4216; J2785

== ENCOUNTER 2020-07-24 09:22 | Day surgery (SDC) | payer MEDICARE, SELFPAY ==
[2020-07-11 10:30] VITALS: BMI 30.9
--- NOTE | 2020-07-23 15:15 | PCM.HP.BLA ---
History and Physical Date of Admission: 07/24/20 Intake Vital Signs 07/11/20 Height 5 ft 8 in 07/11/20 Weight: 192 lb 07/11/20 BMI 29.2 Intake Visit Reasons: Right hand Accompanied by: Self Is patient in pain?: Yes Pain scale (1-10): 9 Allergies amoxicillin Allergy (Severe, Verified 07/11/20 10:25) Hives aspirin Allergy (Severe, Verified 07/11/20 10:25) Hives, SOB Sulfa (Sulfonamide Antibiotics) Allergy (Severe, Verified 07/11/20 10:25) Hives Medications magnesium oxide 400 mg PO DAILY cap 11/18/17 [History Confirmed 07/11/20] metformin 500 mg tablet 1,000 mg PO BID tab 02/13/18 [History Confirmed 07/11/20] budesonide-formoterol HFA 160 mcg-4.5 mcg/actuation aerosol inhaler 2 puff INHALATION BID 11/04/18 [History Confirmed 07/11/20] Albuterol IH (ProAir) [Proair Hfa] 1 puff INHALATION Q4H PRN PRN 11/18/18 [History Confirmed 07/11/20] Warfarin [Coumadin] 5 mg PO DAILY 11/18/18 [History Confirmed 07/11/20] Atorvastatin Calcium 10 mg PO QHS 12/11/19 [History Confirmed 07/11/20] Gabapentin [Neurontin] 300 mg PO QHS 12/11/19 [History Confirmed 07/11/20] cyclobenzaprine 10 mg tablet 10 mg PO BID PRN tab 06/07/20 [History Confirmed 07/11/20] TENS unit electrodes See Rx Instructions .ROUTE .MEDSUPPLY #2 ea 07/11/20 [History Confirmed 07/11/20] glimepiride 2 mg tablet 2 mg PO DAILY 07/11/20 [History Confirmed 07/11/20] triamcinolone acetonide 0.1 % topical cream g TOPICAL 07/11/20 [History Confirmed 07/11/20] Post menopausal: Yes Patient : No PFSH Medical History (Updated 07/11/20 @ 10:25 by Lilly Tabares) Abnormal EKG (Chronic) Hyperlipidemia (Chronic) 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) Obesity (Chronic) Diabetes mellitus (Chronic) Other secondary pulmonary hypertension (Chronic) RAMESH (obstructive sleep apnea) (Chronic) Asthma (Chronic) 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) Atrial fibrillation (Chronic) Cystitis (Acute) Type 2 diabetes mellitus (Acute) Allergic rhinitis (Chronic) BMI 33.0-33.9,adult (Chronic) Contact dermatitis and other eczema (Chronic) DDD (degenerative disc disease) (Chronic) Dizziness and giddiness (Chronic) Hx of bladder infections (Chronic) Hypersomnia (Chronic) RAMESH (obstructive sleep apnea) (Chronic) Palpitations (Chronic) Shoulder dislocation (Chronic) Viral URI with cough (Resolved) Surgical History Presence of permanent cardiac pacemaker (Chronic 04/01/19) History of kidney surgery (Chronic) History of appendectomy (Chronic) Social History (Updated 07/11/20 @ 13:[address] Mitchell Ortez DO) Smoking Status: Never smoker alcohol intake: never substance use type: does not use HPI Right hand: Details: Parts of this documentation were recorded by a scribe, this documentation accurately reflects the service provided and the decisions made by me, Dr. Mitchell Ortez DO 07/11/20 0755. .ISAIAH COLLAZO is a 75 year old F here today to establish as a new patient in regards to trigger finger. Effected is third digit on right hand. Onset: at least a month to two months. Pain effects her second and fourth digit. Previously had surgery on the left hand, third digitFor same issue. Denies usage of Tylenol and ibuprofen for pain. Denies usage of ice and heat applications. Denies injury. Patient two weeks ago had to manually straighten her fingerAs it was stuck and she is apprehensive about bending it this far any further her pain is over the A1 jody. ROS Const Reports system reviewed and no additional complaints, except as docu, Denies body aches, Denies chills, Denies fatigue, Denies fever(s), Denies headache(s) ENT Denies headache(s) Card Denies shortness of breath Resp Reports system reviewed and no additional complaints, except as docu, Denies cough, Denies shortness of breath GI Reports system reviewed and no additional complaints, except as docu, Denies abdominal pain, Denies constipation, Denies incontinent of stools, Denies loose stools Reports system reviewed and no additional complaints, except as docu, Denies urinary incontinence Musc Reports system reviewed and no additional complaints, except as docu, Reports joint pain, Reports joint swelling, Reports numbness, Reports stiffness, Denies tingling Skin/Breast Reports system reviewed and no additional complaints, except as docu, Denies dry skin, Denies redness, Denies lesions, Denies new lesions, Denies non-healing lesions, Denies itching, Denies rash, Denies skin ulcer, Denies sores, Denies wounds Neuro Yes system reviewed and no additional complaints, except as docu, No headache(s), Yes numbness, No tingling Endo Denies fatigue Ortho Exam Right Wrist/Hand Skin/Wound: No Swelling, No Ecchymosis, Yes nail intact, Yes capillary refill normal A1 jody trigger: Yes WRIST: HypertrophiedA1 jody unable to Flex Fully secondary to pain and apprehension about triggering Left Wrist/Hand Skin/Wound: No Swelling, No Ecchymosis Assessment & Plan Problems 1. Patient new to facility 2. Trigger middle finger of right hand M65.331 Plan Discussed options with patient: Can perform an injection, or surgical release. Explained the injections can work 50% of the time verus surgical interventionWith last recurrence riskHowever risk of incisional hypersensitivity and pain postoperatively, pain can last a few weeks. Patient would like to proceed with surgical intervention. Reviewed the pre-operative plans with the patient. Risks and benefits of the procedure were fully explained, including but not limited to infection, neurovascular injury, continued pain, arthritis, stiffness, need for further surgery, re-injury, DVT, PE, general risks of anesthesia, and loss of limb or life. The patient understands all the risks and does wish to proceed with written consent. All questions answered. Patient in agreement of plan. Coding Level of Care Code Off vis,new,level 3 Diagnoses Patient new to facility Trigger middle finger of right hand M65.331 ??Laterality: right ??Trigger finger location: middle finger I have re-examined the patient. There are no clinical changes since date of exam Procedure Criteria Procedure Type: Elective COVID Risk Discussion: The surgeon/proceduralist and patient have discussed in detail the risk of exposure to and/or potential harm posed by the COVID-19 virus with having a surgery/procedure at this time versus the risk of delaying the surgery/procedure. It is not possible to know either the risk of delaying the surgery or procedure or chance of getting an infection with perfect accuracy, but a joint decision was made between the patient and the surgeon/proceduralist to proceed at this time with the scheduled surgery/procedure as indicated on the consent form.
[2020-07-24 09:58] VITALS: BP 116/90; PULSE 67; RESP 16; TEMP 36.2; O2SAT 98; BMI 30.7
[2020-07-24] MEDS: Lactated Ringers 1,000 ML 100 ML IV (10:18)
[2020-07-24 11:05] VITALS: BP 113/71; BP 116/90; PULSE 60; RESP 16; O2SAT 95
--- NOTE | 2020-07-24 11:44 | PCM.DC.ORTHO ---
Discharge Diet: No Restrictions Call your doctor if you observe: Shortness of breath, Chest pain Additional Instructions: Ice and elevate operative extremity next 72 hours. Keep dressing on clean and dry for 48 hours then may remove and allow warm soapy water to rinse over incision but do not submerge until sutures are out. Then apply bandaid over incision and change daily. encourage finger range of motion. Not lift more than 1/2 pound. Allergies/Adverse Reactions: Allergies amoxicillin Allergy (Severe, Verified 07/24/20 09:46) Hives aspirin Allergy (Severe, Verified 07/24/20 09:46) Hives, SOB Sulfa (Sulfonamide Antibiotics) Allergy (Severe, Verified 07/24/20 09:46) Hives Medications to take at Discharge magnesium oxide 400 mg PO DAILY cap 11/18/17 metformin 500 mg tablet 1,000 mg PO BID tab 02/13/18 budesonide-formoterol HFA 160 mcg-4.5 mcg/actuation aerosol inhaler 2 puff INHALATION BID 11/04/18 Albuterol IH (ProAir) [Proair Hfa] 1 puff INHALATION Q4H PRN PRN 11/18/18 Warfarin [Coumadin] 5 mg PO DAILY 11/18/18 Atorvastatin Calcium 10 mg PO QHS 12/11/19 Gabapentin [Neurontin] 300 mg PO QHS 12/11/19 cyclobenzaprine 10 mg tablet 10 mg PO BID PRN tab 06/07/20 TENS unit electrodes See Rx Instructions .ROUTE .MEDSUPPLY #2 ea 07/11/20 glimepiride 2 mg tablet 2 mg PO DAILY PRN 07/11/20 triamcinolone acetonide 0.1 % topical cream 1 g TOPICAL PRN PRN 07/11/20 Flecainide [Tambocor] 100 mg PO BID 07/16/20 Hydrocodone Bitart/Apap 5-325 [[place] 5MG-325MG] 1 - 2 tablet PO Q4H PRN PRN 5 Days #15 tablet 07/24/20 The following prescriptions were given: Hydrocodone Bitart/Apap 5-325 [[place] 5MG-325MG] 1 - 2 tablet PO Q4H PRN PRN 5 Days #15 tablet PRN Reason: Pain Transmission Status: Sent to [facility] Primary Care Physician: Ro Reed MD [Primary Care Provider] - Test Results: Test results from this visit will be discussed in further detail at your follow-up appointment, if applicable. Please Follow Up With: Mitchell Ortez DO - 2 weeks
--- NOTE | 2020-07-24 11:45 | PCM.OPRPT ---
Report of Operation Date of Procedure: 07/24/20 Description of Surgical Findings:: Preoperative diagnosis; right middle finger trigger finger Postoperative diagnosis; same Procedure: Right third digit A1 jody release Anesthesia: Local with MAC Tourniquet time; 10 minutes 250 mm Hg Complications: None Indication for procedure; This is a 75-year-old female with symptoms consistent with trigger finger. Risks benefits and alternatives were reviewed including risks of bleeding infection nerve tendon tissue damage need for further surgery and continued pain and symptoms, hypersensitivity to scar/incision and recurrence. Procedure; The patient was met in the preoperative holding area the operative extremity was identified by both patient and physician and was marked the patient was met by anesthesia and brought back to the operating room and transferred to the operating table in the supine position. Aanesthesia was started. A well-padded tourniquet was placed on the operative upper extremity. The patient was prepped and draped in the usual sterile fashion. A timeout was called to ensure the proper patient procedure and extremity were being contemplated. 0.5 percent Marcaine was injected into the incisional area. Esmarch was used tourniquet was inflated. 15 blade scalpel was used to make a longitudinal incision directly over the A1 jody was carried down through the subcutaneous tissue Mini retractors placed radial and ulnar protecting the digital nerves and a Ragnell retractor was used at the apex of the incision under direct visualization a deep blade scalpel was used to release the A1 jody. The wound was thoroughly irrigated and closed with 4-0 nylon vertical mattress edges. Dressing was applied in the form of Xeroform 4 x 4 web roll and an Toney wrap. Patient tolerated the procedure well was brought back to the PACU in stable condition.
[2020-07-24 11:46] LABS: Bedside Glucose 110 mg/dL (70-110)
[2020-07-24 11:50] VITALS: BP 108/74; BP 116/90; PULSE 61; RESP 16; TEMP 36.3; O2SAT 96
[2020-07-24 11:55] VITALS: BP 116/90; BP 125/73; PULSE 60; RESP 16; O2SAT 96
[2020-07-24 12:05] VITALS: BP 116/90; BP 122/82; PULSE 60; RESP 16; TEMP 36.3; O2SAT 95
[2020-07-24 13:33] VITALS: BP 116/90; BP 142/79; PULSE 62; RESP 16; TEMP 36.3; O2SAT 97
[2020-07-25 08:41] LABS: Prothrombin Time Fingerstick 13.7 SEC (11.9-14.4)
== END 2020-07-24 14:15 | disposition home or self-care (01) ==
LOC: SDC 09:23 → AC 09:24
PROVIDERS: Anesthesiology; PCP Internal Medicine; Referring Provider Orthopaedic Surgery; Visit Provider Orthopaedic Surgery
PROC: (CPT 26055; principal; 2020-07-24 10:55)
DX: M65.331 Trigger finger, right middle finger (principal); E78.5 Hyperlipidemia, unspecified; G47.33 Obstructive sleep apnea (adult) (pediatric); E66.9 Obesity, unspecified; Z68.30 Body mass index [BMI] 30.0-30.9, adult; J45.909 Unspecified asthma, uncomplicated; E11.9 Type 2 diabetes mellitus without complications; I27.29 Other secondary pulmonary hypertension; Z11.59 Encounter for screening for other viral diseases; I48.20 Chronic atrial fibrillation, unspecified; Z79.899 Other long term (current) drug therapy; Z79.01 Long term (current) use of anticoagulants; Z79.84 Long term (current) use of oral hypoglycemic drugs; Z95.0 Presence of cardiac pacemaker; Z79.51 Long term (current) use of inhaled steroids
CPT/HCPCS: 01810; 26055; 36416; 82962; 85610; 87635; C9803; J7120; U0003

== ENCOUNTER 2020-09-11 11:12 | Outpatient (RCR) | payer MEDICARE, SELFPAY ==
[2020-08-06 09:10] VITALS: BMI 30.7
[2020-09-11 12:37] LABS: International Normalized Ratio 3.2; Prothrombin Time (Protime)PT. 32.6 SECONDS (11.7-14.9)
== END 2020-09-11 18:00 | disposition home or self-care (01) ==
LOC: LAB 11:12
PROVIDERS: Family Provider Internal Medicine; PCP Internal Medicine; Referring Provider Nurse Practitioner Family; Visit Provider Nurse Practitioner Family
DX: I48.92 Unspecified atrial flutter (principal); Z79.01 Long term (current) use of anticoagulants
CPT/HCPCS: 36415; 85610

== ENCOUNTER 2020-12-07 11:20 | Outpatient (RCR) | payer MEDICARE, SELFPAY ==
[2020-08-06 09:10] VITALS: BMI 30.7
[2020-12-07 10:43] VITALS: BMI 29.2
[2020-12-07 12:52] LABS: Absolute Neutrophil Count 4.7 X10^3/uL (2.0-7.7); Basophil# 0.06 X10^3/uL; Basophil% 0.8 % (0-1); Eosinophil# 0.25 X10^3/uL; Eosinophils% 3.5 % (0-5); Hematocrit 41.7 % (37-47); Hemoglobin 14.1 g/dL (12.0-15.0); Lymphocyte % 22.6 % (19-41); Mean Corp Hgb Conc 33.8 g/dL (32-36); Mean Corpuscular Hgb 32.7 pg (27.0-32.0); Mean Corpuscular Volume 96.8 fL (81-99); Monocyte# 0.47 X10^3/uL; Monocyte% 6.6 % (0-10); NRBC Flagged by Analyzer 0 % (0-5); Neutrophil # 4.66 X10^3/uL (2.7-7.7); Neutrophil % 65.9 % (47-70); Platelet Count 153 K/mm3 (150-450); RBC Distribution Width CV 12.4 % (11.6-14.6); RBC Distribution Width SD 44.4 fl (35.1-43.9); Red Blood Count 4.31 M/mm3 (4.2-5.4); White Blood Count 7.1 K/mm3 (4.4-11.0)
[2020-12-07 13:01] LABS: International Normalized Ratio 2.7; Prothrombin Time (Protime)PT. 28.2 SECONDS (11.7-14.9)
[2020-12-07 13:18] LABS: Anion Gap 6 (5-15); BUN 16 mg/dL (7-18); BUN/Creat Ratio 16.4 RATIO (10-20); Calcium,Total 9.3 mg/dL (8.5-10.1); Chloride 108 mmol/L (98-107); Creatinine, Serum 0.98 mg/dL (0.55-1.02); EST Glomerular Filtration Rate 59 mL/min (>60); Est Glom Filt Rate - Afr Amer 72 mL/min (>60); Glucose 98 mg/dL (74-106); Potassium 4.1 mmol/L (3.5-5.1); Sodium Level 140 mmol/L (136-145)
== END 2020-12-07 18:00 | disposition home or self-care (01) ==
LOC: LAB 11:20
PROVIDERS: Physician Assistant Medical; Family Provider Internal Medicine; PCP Internal Medicine; Referring Provider Nurse Practitioner Family; Visit Provider Nurse Practitioner Family
DX: I48.91 Unspecified atrial fibrillation (principal); I48.92 Unspecified atrial flutter; Z79.01 Long term (current) use of anticoagulants
CPT/HCPCS: 36415; 80048; 85025; 85610

== ENCOUNTER 2020-12-28 09:11 | Outpatient (RCR) | payer MEDICARE, SELFPAY ==
[2020-12-28 10:26] LABS: International Normalized Ratio 2.2; Prothrombin Time (Protime)PT. 24.1 SECONDS (11.7-14.9)
== END 2020-12-28 18:00 | disposition home or self-care (01) ==
LOC: LAB 09:11
PROVIDERS: Internal Medicine Cardiovascular Disease; Family Provider Internal Medicine; PCP Internal Medicine; Referring Provider Nurse Practitioner Family; Visit Provider Nurse Practitioner Family
DX: I48.91 Unspecified atrial fibrillation (principal); I48.92 Unspecified atrial flutter; Z79.01 Long term (current) use of anticoagulants
CPT/HCPCS: 36415; 85610

== ENCOUNTER 2021-01-03 22:43 | Emergency (ER) | payer MEDICARE, SELFPAY ==
[2021-01-03 22:43] VITALS: BP 158/85; PULSE 83; RESP 16; TEMP 36.4; O2SAT 98; BMI 29.2
[2021-01-03 22:44] VITALS: BP 158/85; PULSE 83; RESP 16; TEMP 36.4; O2SAT 98
--- NOTE | 2021-01-03 22:51 | RAD_ITS ---
STUDY: X-RAY CHEST REASON FOR EXAM: Female, 75 years old. sob TECHNIQUE: Single AP portable view of the chest. COMPARISON: 03/12/2020. FINDINGS: The lungs are clear and expanded. There is no demonstrated pleural abnormality. Normal size heart. Dual lead cardiac pacemaker on the left. Normal mediastinum and mahendra. Normal visualized pulmonary arteries. Normal visualized aortic arch and descending thoracic aorta. Normal visualized thoracic spine. Normal visualized ribs, clavicles, and shoulders. There is no demonstrated abnormality of the visualized soft tissue structures of the upper abdomen. RAD/Chest 1 View (Portable) IMPRESSION: Normal x-ray examination of the chest. Electronically Signed: Maddie Grant MD at 23:40 EST Tel , Service support ,
--- NOTE | 2021-01-03 22:51 | EKG12_ITS ---
Test Reason : DYSRHYTHMIA Blood Pressure : / mmHG Vent. Rate : 063 BPM Atrial Rate : 063 BPM P-R Int : 000 ms QRS Dur : 062 ms QT Int : 416 ms P-R-T Axes : 040 034 026 degrees QTc Int : 425 ms Ventricular-paced rhythm Abnormal ECG Confirmed by MADIE NICOLE, AMEE ([id number]), commercial production editor MAURY WOODARD ([id number]) on 01/07/2021 10:59:50 A M Referred By: Confirmed By:CHASITY RAMACHANDRAN MD
[2021-01-03 22:53] VITALS: O2SAT 94
--- NOTE | 2021-01-03 22:53 | ED.DCSUM_ITS ---
- ER Visit Summary Date of Service: 01/03/21 Chief Complaint: Shortness of breath History of Present Illness: The patient is a 75 F presenting with shortness of breath. Patient states that she was cleaning a lauren closet tonight and developed shortness of breath. She has had these symptoms in the past with exposure to dust secondary to her asthma. She tried her inhaler at home with no relief. She denies chest pain or chest pressure. Denies nausea or vomiting. Denies fever or cough. Denies other complaints. Physical Examination: Vitals are stable. Patient is afebrile. Alert no acute distress. HEENT exam is unremarkable. Neck is supple. Lungs are diminished bilaterally. Heart is regular rate and rhythm. Extremities are unremarkable. Skin is warm and dry. No focal neurologic deficit. Remainder of exam is unremarkable. Emergency Department Course and Treatment: Patient was given albuterol, Atrovent aerosols. EKG is paced at a rate of 63, similar to previous. Chest x-ray read by myself and radiology shows no acute process. INR 2.2. CBC unremarkable. Chemistries unremarkable. Troponin is negative. On reevaluation, patient is feeling much improved. She has albuterol inhaler for home. She is comfortable with discharge home. She is advised to follow-up with primary care physician. Advised return to ED for worsening complaints. Disposition: Discharge home Impression: Asthma exacerbation This note was generated with Tiansheng dictation software. It may contain incorrect words, spelling, and punctuation that were not noted in review of the chart prior to signing ED Disposition - Plan for ED Patient: Instructions: ED Asthma, Acute (Adult) Referrals: Ro Reed MD [Primary Care Provider] -
[2021-01-03 23:13] VITALS: PULSE 68; RESP 20; O2SAT 97
[2021-01-03] MEDS: Albuterol 2.5 MG/3 ML VIAL.NEB. INHALATION ×3 (23:13)
[2021-01-03] MEDS: Ipratropium/Albuterol Sulfate 3 ML AMPUL.NEB INHALATION (23:13)
[2021-01-03 23:17] LABS: International Normalized Ratio 2.2
[2021-01-03 23:31] LABS: Absolute Lymphocyte Count 2.19 X10^3/uL (0.83-4.51); Absolute Neutrophil Count 3.6 X10^3/uL (2.0-7.7); Basophil# 0.06 X10^3/uL; Basophil% 0.9 % (0-1); Eosinophil# 0.34 X10^3/uL; Hematocrit 39.5 % (37-47); Hemoglobin 13.2 g/dL (12.0-15.0); Lymphocyte # 2.19 X10^3/ul (4.0); Lymphocyte % 32.1 % (19-41); Mean Corp Hgb Conc 33.4 g/dL (32-36); Mean Corpuscular Hgb 32.4 pg (27.0-32.0); Mean Corpuscular Volume 96.8 fL (81-99); Monocyte# 0.57 X10^3/uL; Monocyte% 8.3 % (0-10); NRBC Flagged by Analyzer 0 % (0-5); Neutrophil # 3.57 X10^3/uL (2.7-7.7); Neutrophil % 52.2 % (47-70); Platelet Count 140 K/mm3 (150-450); RBC Distribution Width CV 12.2 % (11.6-14.6); RBC Distribution Width SD 43.4 fl (35.1-43.9); Red Blood Count 4.08 M/mm3 (4.2-5.4); White Blood Count 6.8 K/mm3 (4.4-11.0)
--- NOTE | 2021-01-03 23:50 | CPS ---
x1 Duoneb, x3 Albuterol given to pt. in ED
[2021-01-04 00:22] LABS: Anion Gap 7 (5-15); BUN 17 mg/dL (7-18); BUN/Creat Ratio 15.2 RATIO (10-20); Chloride 108 mmol/L (98-107); Creatinine, Serum 1.12 mg/dL (0.55-1.02); EST Glomerular Filtration Rate 51 mL/min (>60); Est Glom Filt Rate - Afr Amer 61 mL/min (>60); Estimated Creatinine Clearance 45.13 ml/min; Glucose 132 mg/dL (74-106); Potassium 4.7 mmol/L (3.5-5.1); Sodium Level 138 mmol/L (136-145)
--- NOTE | 2021-01-04 00:29 | ED.DEP ---
ED Disposition - Plan for ED Patient: Instructions: ED Asthma, Acute (Adult) Referrals: Ro Reed MD [Primary Care Provider] -
[2021-01-04 00:38] VITALS: BP 147/89; BP 158/85; PULSE 68; PULSE 69; RESP 16; RESP 20; TEMP 36.4; O2SAT 97; O2SAT 99
== END 2021-01-04 00:39 | disposition home or self-care (01) ==
LOC: ED 23:12
PROVIDERS: Emergency Provider Emergency Medicine; PCP Internal Medicine
DX: J45.901 Unspecified asthma with (acute) exacerbation (principal); E78.00 Pure hypercholesterolemia, unspecified; E11.9 Type 2 diabetes mellitus without complications; Z79.84 Long term (current) use of oral hypoglycemic drugs
CPT/HCPCS: 71045; 80048; 84484; 85025; 85610; 93005; 94640; 99251; 99283; A4216; G0463

== ENCOUNTER 2021-06-08 20:09 | Emergency (ER) | payer MEDICARE, SELFPAY ==
[2021-06-08 20:10] VITALS: BP 118/97; PULSE 82; RESP 18; TEMP 37.1; O2SAT 96; BMI 31.5
--- NOTE | 2021-06-08 21:00 | RAD_ITS ---
INDICATION: INJURY EXAMINATION/TECHNIQUE: X-RAY - LEFT XR Knee 3 Views 3 VIEWS COMPARISON: None. FINDINGS: SOFT TISSUES: No soft tissue swelling or gas. No joint effusion No radiopaque foreign body. Peripheral atherosclerosis. BONES/JOINTS: No acute fracture or subluxation.. Normal alignment. Mild irregularity patellar subchondral articular surface and mild osteophytosis; degenerative changes patellofemoral joint.. RAD/Knee 3 Views IMPRESSION: No evidence of osseous or soft tissue injury. Peripheral atherosclerosis. Patellofemoral joint arthrosis. Electronically Signed: Naeem Padilla DO at 21:57 EDT Tel , Service support ,
--- NOTE | 2021-06-08 23:21 | EDS_ITS ---
HPI History of Present Illness HPI Narrative: Patient presents with left knee injury that occurred today. Patient states she felt a pop in her knee today. Patient states she has been having some mild pain in her left knee over the last 3 days but it became worse today after she felt a pop. Patient states the pain is sharp and aching. Patient states the pain is worse with weightbearing. Patient denies any radiation of the pain. Patient denies any paresthesias or weakness. Patient denies any other injuries. Chief Complaint: Lower Extremity Injury Informant: patient Onset/Context/Timing Onset: Today Context: Sudden Onset Timing: Continuous Quality of Pain: Sharp and Aching Worsened by: Weightbearing Relieved by: Nothing Associated Symptoms Associated Symptoms: Negative for Parasthesia, Weakness and Loss of Funtion PFSH [facility] Medical History (Updated 06/08/21 @ 23:[address] 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 Contact dermatitis and other eczema Cystitis DDD (degenerative disc disease) Diabetes mellitus Dizziness and giddiness Hx of bladder infections Hyperlipidemia Hypersomnia intermediate (current) use of anticoagulants Obesity RAMESH (obstructive sleep apnea) RAMESH (obstructive sleep apnea) Other secondary pulmonary hypertension Palpitations Shoulder dislocation Type 2 diabetes mellitus Viral URI with cough Home Medications magnesium oxide 400 mg PO DAILY cap 11/18/17 [History Last Taken 12/11/19 08:00 400 mg] metformin 500 mg tablet 1,000 mg PO BID tab 02/13/18 [History Last Taken 12/11/19 08:00 1000 mg] albuterol sulfate 1 puff INHALATION Q4H PRN PRN 11/18/18 [History Last Taken Unknown] warfarin 5 mg PO DAILY 11/18/18 [History Last Taken 12/10/19 17:00 5 mg] atorvastatin 10 mg PO QHS 12/11/19 [History Last Taken 12/10/19 22:00 10 mg] gabapentin 300 mg PO QHS 12/11/19 [History Last Taken 12/09/19 22:00 300 mg] cyclobenzaprine 10 mg tablet 10 mg PO BID PRN tab 06/07/20 [History Last Taken Unknown] TENS unit electrodes #2 ea 07/11/20 [History Last Taken Unknown] glimepiride 2 mg tablet 2 mg PO DAILY PRN 07/11/20 [History Last Taken Unknown] triamcinolone acetonide 0.1 % topical cream 1 g TOPICAL PRN PRN 07/11/20 [History Last Taken Unknown] budesonide-formoterol HFA 160 mcg-4.5 mcg/actuation aerosol inhaler 2 puff INHALATION BID #10.2 g 10/16/20 [Rx Last Taken Unknown] oxycodone-acetaminophen 5 mg-325 mg tablet 1 tab PO DAILY PRN tab 12/07/20 [History Last Taken Unknown] albuterol sulfate 90 mcg/actuation aerosol inhaler 2 puff INHALATION Q4H PRN #8.5 g 05/07/21 [Rx Last Taken Unknown] Allergy/AdvReac Type Severity Reaction Status Date / Time amoxicillin Allergy Severe Hives Verified 06/08/21 20:12 aspirin Allergy Severe Hives, SOB Verified 06/08/21 20:12 Sulfa (Sulfonamide Allergy Severe Hives Verified 06/08/21 20:12 Antibiotics) Family History Mother Diabetes Father CAD (coronary artery disease) Sister Lung cancer Son Kidney stone Surgical History History of appendectomy History of kidney surgery Presence of permanent cardiac pacemaker (04/01/19) Social History household members: none housing: house Smoking Status: Never smoker alcohol intake: never substance use type: does not use what type of physical activity do you participate in: none do you feel safe at home: Yes ROS ROS ED Constitutional Constitutional ED: Denies chills or fever(s) Eyes Eyes: Denies blurry vision or change in vision ENT ENT ED: Denies rhinorrhea or sore throat Cardiovascular Cardiovascular: Denies chest pain or palpitations Respiratory/Chest Respiratory/Chest: Denies cough or dyspnea Gastrointestinal Gastrointestinal: Denies nausea or vomiting Genitourinary Genitourinary ED: Denies dysuria or hematuria Musculoskeletal Musculoskeletal: Denies back pain or neck pain Integumentary Denies abscess or rash Neurologic Neurologic: Denies headache(s) or weakness Allergic/Immunologic Allergic/Immunologic ED: Denies mouth swelling or urticaria EXAM Physical Exam Const Vital Signs: 06/08/21 20:10 Temperature 98.8 F Temperature Source Oral Pulse Rate 82 Respiratory Rate 18 Blood Pressure 118/97 H Blood Pressure Mean 104 Pulse Ox 96 Oxygen Delivery Method Room Air Positive well nourished and well developed General Appearance ED: well developed HEENT Reports moist mucous membranes Neck full ROM Extremity Extremity Narrative: There is tenderness over the posterior and lateral aspects of the left knee. There is mild effusion. There is good range of motion. Extensor mechanism is intact. There is some mild pain with varus and valgus testing. There is no laxity appreciated. Emma's test was negative. Sensation was intact to light touch bilaterally in the lower extremities. Strength is 5/5 bilaterally in the lower extremities. Pedal pulses are equal bilaterally. Neuro oriented x3, CN's II-XII intact bilaterally, moves all extremities and no sensory deficits noted Sensorium / Orientation: alert Motor Exam: strength 5/5 throughout Psych mental status grossly normal MDM MDM MDM Narrative Medical decision making narrative: X-rays of the left knee were obtained. There are 3 views. On my interpretation, there is no acute fracture. There is mild effusion. There are mild degenerative changes. Radiologist also interpreted the x-rays and agrees. Patient was given a knee immobilizer. Patient was instructed to ice and elevate the left knee. Patient was instructed to take ibuprofen as needed for pain. Patient states she has a walker at home. Patient was instructed to use this to help with weightbearing. Patient was instructed to weight-bear as tolerated. Patient was instructed to follow-up with her primary care physician in 5 to 7 days. Patient understood and was agreeable with the plan. All questions were answered. Radiography Diagnostic Testing: Radiology Impression Knee X-Ray 06/08/21 21:00 IMPRESSION: No evidence of osseous or soft tissue injury. Peripheral atherosclerosis. Patellofemoral joint arthrosis. Electronically Signed: Naeem Padilla DO at 21:57 EDT Tel , Service support , Discharge Plan Triage Chief Complaint: Lower Extremity Injury ED Provider: Farhat Willis Dx/Rx/DC Orders Clinical Impression: Left knee sprain Instructions: ED Knee Sprain Prescriptions: No Action Symbicort 160-4.5 mcg/actuation HFA aerosol inhaler 2 puff INHALATION BID Qty: 10.2 RF: 11 cyclobenzaprine 10 mg tablet 10 mg PO BID PRN (Reason: Muscle Spasm) RF: 0 oxycodone-acetaminophen 5-325 mg tablet 1 tab PO DAILY PRN (Reason: pain) RF: 0 triamcinolone acetonide 0.1 % cream 1 g TOPICAL PRN PRN (Reason: Rash/Topical Irritation) RF: 0 glimepiride 2 mg tablet 2 mg PO DAILY PRN (Reason: DIABETES) RF: 0 (DME) TENS unit electrodes Pad See Rx Instructions .ROUTE .MEDSUPPLY Qty: 2 RF: 0 metformin 500 mg tablet 1,000 mg PO BID RF: 0 albuterol sulfate 1 PUFF inhaler 1 puff INHALATION Q4H PRN PRN (Reason: Wheezing) RF: 0 warfarin 5 MG tablet 5 mg PO DAILY RF: 0 gabapentin 300 MG capsule 300 mg PO QHS RF: 0 atorvastatin 10 MG tablet 10 mg PO QHS RF: 0 magnesium oxide 400 mg capsule 400 mg capsule 400 mg PO DAILY RF: 0 albuterol sulfate 90 mcg/actuation HFA aerosol inhaler 2 puff INHALATION Q4H PRN (Reason: shortness of breath or wheezing) Qty: 8.5 RF: 6 Primary Care Provider: Ro Reed Referrals: Ro Reed MD [Primary Care Provider] - [facility] appointment Disposition Disposition: Home, Self Care
== END 2021-06-08 23:46 | disposition home or self-care (01) ==
PROVIDERS: Emergency Provider Emergency Medicine; PCP Internal Medicine
DX: S83.92XA Sprain of unspecified site of left knee, initial encounter (principal); X58.XXXA Exposure to other specified factors, initial encounter; Y93.9 Activity, unspecified; Y92.9 Unspecified place or not applicable; Y99.9 Unspecified external cause status; E78.5 Hyperlipidemia, unspecified; J45.909 Unspecified asthma, uncomplicated; I48.91 Unspecified atrial fibrillation; E11.9 Type 2 diabetes mellitus without complications; E66.9 Obesity, unspecified; Z68.33 Body mass index [BMI] 33.0-33.9, adult; G47.33 Obstructive sleep apnea (adult) (pediatric); I27.20 Pulmonary hypertension, unspecified; Z79.899 Other long term (current) drug therapy; Z79.01 Long term (current) use of anticoagulants; Z79.84 Long term (current) use of oral hypoglycemic drugs
CPT/HCPCS: 73562; 99284

== ENCOUNTER 2021-06-21 15:51 | Outpatient (RCR) | payer MEDICARE, SELFPAY ==
[2021-06-21 17:06] LABS: Hematocrit 41.2 % (37-47); Hemoglobin 13.6 g/dL (12.0-15.0); Mean Corpuscular Hgb 32.6 pg (27.0-32.0); Mean Corpuscular Volume 98.8 fL (81-99); Mean Platelet Vol. 10.1 fl (6.2-12.0); Platelet Count 166 K/mm3 (150-450); RBC Distribution Width CV 12.3 % (11.6-14.6); RBC Distribution Width SD 44.2 fl (35.1-43.9); Red Blood Count 4.17 M/mm3 (4.2-5.4); White Blood Count 6.3 K/mm3 (4.4-11.0)
[2021-06-21 17:25] LABS: International Normalized Ratio 3.2; Prothrombin Time (Protime)PT. 32.3 SECONDS (11.7-14.9)
== END 2021-06-21 18:00 | disposition home or self-care (01) ==
LOC: LAB 15:51
PROVIDERS: Physician Assistant Medical; Family Provider Internal Medicine; PCP Internal Medicine; Referring Provider Nurse Practitioner Family; Visit Provider Nurse Practitioner Family
DX: I48.91 Unspecified atrial fibrillation (principal); I48.92 Unspecified atrial flutter; Z79.01 Long term (current) use of anticoagulants
CPT/HCPCS: 36415; 85027; 85610

== ENCOUNTER 2021-08-12 12:25 | Outpatient (RCR) | payer MEDICARE, SELFPAY ==
[2021-06-25 23:22] VITALS: BMI 29.2
[2021-07-29 10:31] LABS: Prothrombin Time (Protime)PT. 47.4 SECONDS (11.7-14.9)
[2021-07-29 10:38] LABS: International Normalized Ratio 5.2
[2021-07-31 12:11] LABS: Prothrombin Time (Protime)PT. 40.7 SECONDS (11.7-14.9)
[2021-07-31 12:20] LABS: International Normalized Ratio 4.3
[2021-08-05 11:46] LABS: International Normalized Ratio 2.6; Prothrombin Time (Protime)PT. 26.6 SECONDS (11.7-14.9)
[2021-08-12 13:30] LABS: International Normalized Ratio 2.5; Prothrombin Time (Protime)PT. 26.5 SECONDS (11.7-14.9)
== END 2021-08-25 03:48 | disposition home or self-care (01) ==
LOC: LAB 12:25
PROVIDERS: Family Provider Internal Medicine; PCP Internal Medicine; Referring Provider Nurse Practitioner Family; Visit Provider Nurse Practitioner Family
DX: I48.91 Unspecified atrial fibrillation (principal); I48.92 Unspecified atrial flutter; Z79.01 Long term (current) use of anticoagulants
CPT/HCPCS: 36415; 85610

== ENCOUNTER 2021-10-14 11:07 | Outpatient (RCR) | payer MEDICARE, SELFPAY ==
[2021-08-25 03:48] VITALS: BMI 29.2
[2021-09-26 11:04] LABS: AST(SGOT) 20 U/L (15-37); Alanine Aminotransfer ALT/SGPT 20 U/L (13-56); Albumin, Serum 3.6 g/dL (3.2-5.0); Alkaline Phosphatase 89 U/L (45-117); Bilirubin, Direct 0.14 mg/dL (0.00-0.30); Cholesterol 143 mg/dL (200); Globulin 4.1 g/dL (2.2-4.2); High Density Lipoprotein 63 mg/dL; Protein, Total 7.7 g/dL (6.4-8.2); Triglycerides 135 mg/dL; Very Low Density Lipoprotein 27 mg/dL (5-40)
[2021-10-14 12:12] LABS: International Normalized Ratio 1.5
== END 2021-10-26 18:00 | disposition home or self-care (01) ==
LOC: LAB 11:07
PROVIDERS: Family Provider Internal Medicine; PCP Internal Medicine; Referring Provider Nurse Practitioner Family; Visit Provider Nurse Practitioner Family
DX: I48.91 Unspecified atrial fibrillation (principal); I48.92 Unspecified atrial flutter; Z79.01 Long term (current) use of anticoagulants; E78.00 Pure hypercholesterolemia, unspecified; E78.5 Hyperlipidemia, unspecified
CPT/HCPCS: 36415; 80061; 80076; 85610

== ENCOUNTER 2021-10-29 10:40 | Outpatient (RCR) | payer MEDICARE, SELFPAY ==
[2021-10-27 04:16] VITALS: BMI 29.2
[2021-10-29 12:12] LABS: International Normalized Ratio 2.6; Prothrombin Time (Protime)PT. 26.9 SECONDS (11.7-14.9)
== END 2021-11-25 18:00 | disposition home or self-care (01) ==
LOC: LAB 10:40
PROVIDERS: Family Provider Internal Medicine; PCP Internal Medicine; Referring Provider Internal Medicine Cardiovascular Disease; Visit Provider Internal Medicine Cardiovascular Disease
DX: I48.91 Unspecified atrial fibrillation (principal); I48.92 Unspecified atrial flutter; Z79.02 Long term (current) use of antithrombotics/antiplatelets
CPT/HCPCS: 36415; 85610

== ENCOUNTER 2021-12-04 09:03 | Outpatient (RCR) | payer MEDICARE, SELFPAY ==
[2021-11-26 01:12] VITALS: BMI 29.2
[2021-12-04 12:00] LABS: International Normalized Ratio 2.4; Prothrombin Time (Protime)PT. 25.5 SECONDS (11.7-14.9)
== END 2021-12-04 23:59 | disposition home or self-care (01) ==
LOC: LAB 09:03
PROVIDERS: Family Provider Internal Medicine; PCP Internal Medicine; Referring Provider Internal Medicine Cardiovascular Disease; Visit Provider Internal Medicine Cardiovascular Disease
DX: I48.91 Unspecified atrial fibrillation (principal); I48.92 Unspecified atrial flutter; Z79.01 Long term (current) use of anticoagulants
CPT/HCPCS: 36415; 85610

== ENCOUNTER 2022-01-07 08:13 | Outpatient (RCR) | payer MEDICARE, SELFPAY ==
[2022-01-07 08:13] VITALS: BMI 29.2
[2022-01-07 09:56] LABS: International Normalized Ratio 2.2; Prothrombin Time (Protime)PT. 23.7 SECONDS (11.7-14.9)
== END 2022-01-23 18:00 | disposition home or self-care (01) ==
LOC: LAB 08:13
PROVIDERS: Family Provider Internal Medicine; PCP Internal Medicine; Referring Provider Internal Medicine Cardiovascular Disease; Visit Provider Internal Medicine Cardiovascular Disease
DX: I48.91 Unspecified atrial fibrillation (principal); I48.92 Unspecified atrial flutter; Z79.01 Long term (current) use of anticoagulants
CPT/HCPCS: 36415; 85610

== ENCOUNTER 2022-03-18 10:17 | Outpatient (RCR) | payer MEDICARE, SELFPAY ==
[2022-01-24 02:26] VITALS: BMI 29.2
[2022-03-05 11:35] LABS: International Normalized Ratio 2.8
[2022-03-18 11:49] LABS: International Normalized Ratio 1.4; Prothrombin Time (Protime)PT. 16.8 SECONDS (11.7-14.9)
== END 2022-03-18 18:00 | disposition home or self-care (01) ==
LOC: LAB 10:17
PROVIDERS: Family Provider Internal Medicine; PCP Internal Medicine; Referring Provider Internal Medicine Cardiovascular Disease; Visit Provider Internal Medicine Cardiovascular Disease
DX: I48.91 Unspecified atrial fibrillation (principal); I48.92 Unspecified atrial flutter; Z79.01 Long term (current) use of anticoagulants
CPT/HCPCS: 36415; 85610

== ENCOUNTER 2022-04-02 07:34 | Outpatient (RCR) | payer MEDICARE, SELFPAY ==
[2022-03-25 20:44] VITALS: BMI 29.2
[2022-04-02 09:28] LABS: International Normalized Ratio 2.2; Prothrombin Time (Protime)PT. 24.5 SECONDS (11.7-14.9)
== END 2022-04-02 23:59 | disposition home or self-care (01) ==
LOC: LAB 07:34
PROVIDERS: Family Provider Internal Medicine; PCP Internal Medicine; Referring Provider Internal Medicine Cardiovascular Disease; Visit Provider Internal Medicine Cardiovascular Disease
DX: I48.91 Unspecified atrial fibrillation (principal); I48.92 Unspecified atrial flutter; Z79.02 Long term (current) use of antithrombotics/antiplatelets; I27.29 Other secondary pulmonary hypertension
CPT/HCPCS: 36415; 85610; 93306; Q9957; A4216; C8929

== ENCOUNTER → 2022-04-02 | Outpatient (CLI) | payer MEDICARE, SELFPAY ==
--- NOTE | 2022-04-02 07:55 | ECHOCS_ITS ---
Reason For Study: MURMUR Procedure This was a 2D Doppler, Color Flow transthoracic echocardiogram. The study was technically difficult. Contrast injection was performed. Exam performed in department. Left Ventricle Normal LV size. Left ventricular systolic function is normal. The estimated ejection fraction is 60 %. Unable to assess diastolic dysfunction. No regional wall motion abnormalities noted. Right Ventricle Normal RV size. ICD or pacer leads identified within the right ventricle. Normal systolic function. Atria The left atrium is mildly enlarged. The right atrium is mildly enlarged. ICD or pacer leads identified within the right atrium. No doppler evidence for ASD. Mitral Valve There is no mitral annular calcification. Normal mitral valve. Trivial mitral valve insufficiency. Tricuspid Valve Normal tricuspid valve. Trivial tricuspid valve insufficiency. Right ventricular systolic pressure estimated to be 31 mmHg. Aortic Valve Trisinus/trileaflet aortic valve. Mild diffuse aortic valve thickening. Moderate focal aortic valve calcification. Aortic sclerosis, no stenosis. Pulmonic Valve The pulmonic valve is not well visualized. Trivial pulmonic valve insufficiency. Great Vessels Normal sized aortic root. Pericardium/Pleural No pericardial effusion. Medication 22 gauge I.V. with prn adaptor inserted into left arm. Diluted definity 2ml given slow IV push to enhance endocardial definition. MMode/2D Measurements & Calculations LVIDd: 3.3 cm IVSd: 1.1 cm Ao root diam: 3.0 cm LVIDs: 2.3 cm LVPWd: 1.4 cm FS: 32.3 % LAV(MOD-sp4): 54.8 ml LVAd ap4: 23.1 cm2 SV(MOD-sp4): 36.7 ml LVLd ap4: 7.1 cm EDV(MOD-sp4): 62.1 ml EDV(sp4-el): 63.6 ml LVAs ap4: 13.9 cm2 LVLs ap4: 6.1 cm ESV(MOD-sp4): 25.5 ml ESV(sp4-el): 26.6 ml EF(MOD-sp4): 59.0 % EF(sp4-el): 58.2 % SV(sp4-el): 37.1 ml LA A4 area: 21.8 cm2 LA dimension(2D): 3.5 cm RA A4 area: 22.4 cm2 Doppler Measurements & Calculations MV E max pamela: 113.5 cm/sec Ao V2 max: 95.1 cm/sec LV V1 max: 94.4 cm/sec Ao max P.6 mmHg LV V1 max P.6 mmHg PA V2 max: 67.2 cm/sec TR max pamela: 263.2 cm/sec TR max P.7 mmHg ECHO/Echo Complete W/ Contrast Interpretation Summary The study was technically difficult. Contrast injection was performed. Left ventricular systolic function is normal. The estimated ejection fraction is 60 %. The left atrium is mildly enlarged. The right atrium is mildly enlarged. Trivial mitral valve insufficiency. Trivial tricuspid valve insufficiency. Aortic sclerosis, no stenosis. Trivial pulmonic valve insufficiency. Right ventricular systolic pressure estimated to be 31 mmHg. Unable to assess diastolic dysfunction. Ordering Physician: Lisandra Cao Referring Physician: Lisandra Cao Performed By: Kelly Victoria RCS
== END | disposition home or self-care (01) ==
PROVIDERS: PCP Internal Medicine; Referring Provider Physician Assistant Medical; Visit Provider Physician Assistant Medical
DX: I27.29 Other secondary pulmonary hypertension (principal)
CPT/HCPCS: 93306; Q9957; A4216; C8929

== ENCOUNTER 2022-06-16 21:27 | Emergency (ER) | payer MEDICARE, SELFPAY ==
[2022-06-16 21:27] VITALS: BP 154/109; PULSE 67; RESP 18; TEMP 37.2; O2SAT 100; BMI 28.8
[2022-06-16 21:39] VITALS: BP 172/121; BP 177/121; PULSE 84; RESP 18; TEMP 37.2
--- NOTE | 2022-06-16 21:44 | EKG12_ITS ---
Test Reason : DYSRHYTHMIA Blood Pressure : / mmHG Vent. Rate : 062 BPM Atrial Rate : 062 BPM P-R Int : 000 ms QRS Dur : 050 ms QT Int : 400 ms P-R-T Axes : 095 024 032 degrees QTc Int : 406 ms Ventricular-paced rhythm Abnormal ECG Confirmed by MONROE NICOLE, ZOE ([id number]), city editor MAURY WOODARD ([id number]) on 06/18/2022 8:51:00 AM Referred By: ZACARIAS Confirmed By:ZOE CHILDRESS MD
--- NOTE | 2022-06-16 21:46 | EDS_ITS ---
HPI History of Present Illness Chief Complaint: Confusion Informant: patient and family Onset/Context/Timing Onset: Today and Hours Timing: Continuous Current Severity: Mild Maximum Severity: Mild Narrative Narrative: 77-year-old female history of A. fib on Coumadin, diabetes, hypertension and pacemaker. No prior history of stroke. She was doing fine today has not been ill recently. Daughter spoke to her earlier today and she was fine. Daughter and her were speaking this evening and she told her daughter she did not know [place]. Daughter lives by the patient walked over to her home and said that she was confused. They called nurses on- call for their primary care physician's office they asked her where she was at and the patient told them she was in her driveway when she was sitting inside her house. Reportedly no falls injury or trauma. No recent illness. No fever, vomiting or diarrhea. No headache. Daughter states she also seemed off balance when she walked. 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 Obesity RAMESH (obstructive sleep apnea) Other secondary pulmonary hypertension Palpitations Pneumonia Shoulder dislocation Home Medications magnesium oxide 400 mg PO DAILY supplement 11/18/17 [History Last Taken 12/11/19 08:00 400 mg] metformin 500 mg tablet 1,000 mg PO BID DM 02/13/18 [History Last Taken 12/11/19 08:00 1000 mg] warfarin 5 mg tablet 5 mg PO DAILY afib 11/18/18 [History Last Taken 12/10/19 17:00 5 mg] atorvastatin 10 mg tablet 10 mg PO QHS cholesterol 12/11/19 [History Last Taken 12/10/19 22:00 10 mg] gabapentin 300 mg capsule 300 mg PO QHS Neuropathy 12/11/19 [History Last Taken 12/09/19 22:00 300 mg] TENS unit electrodes #2 ea 07/11/20 [History Last Taken Unknown] glimepiride 2 mg tablet 2 mg PO DAILY PRN DIABETES 07/11/20 [History Last Taken Unknown] triamcinolone acetonide 0.1 % topical cream 1 g topical PRN PRN Rash/Topical Irritation 07/11/20 [History Last Taken Unknown] oxycodone-acetaminophen 5 mg-325 mg tablet 1 tab PO DAILY PRN pain 12/07/20 [History Last Taken Unknown] albuterol sulfate 90 mcg/actuation aerosol inhaler 2 puff inhalation Q4H PRN shortness of breath or wheezing #8.5 grams 05/07/21 [Rx Last Taken Unknown] budesonide-formoterol HFA 160 mcg-4.5 mcg/actuation aerosol inhaler (Symbicort) 2 puff inhalation BID asthma #10.2 grams 10/08/21 [Rx Last Taken Unknown] montelukast 10 mg tablet (Singulair) 10 mg PO QPM #30 tabs 04/04/22 [Rx Last Taken Unknown] Allergy/AdvReac Type Severity Reaction Status Date / Time amoxicillin Allergy Severe Hives Verified 06/16/22 21:30 aspirin Allergy Severe Hives, SOB Verified 06/16/22 21:30 Sulfa (Sulfonamide Allergy Severe Hives Verified 06/16/22 21:30 Antibiotics) Family History Mother Diabetes Father CAD (coronary artery disease) Sister Lung cancer Son Kidney stone Surgical History History of appendectomy History of kidney surgery Presence of permanent cardiac pacemaker (04/01/19) Social History household members: none housing: house Smoking Status: Never smoker alcohol intake: never substance use type: does not use what type of physical activity do you participate in: none do you feel safe at home: Yes ROS ROS ED ROS Narrative No recent illness. Review of Systems ROS Unobtainable: Denies due to encephalopathy Constitutional Constitutional ED: Denies chills or fever(s) Eyes Eyes: Denies blurry vision ENT ENT ED: Denies ear pain Cardiovascular Cardiovascular: Denies chest pain Respiratory/Chest Respiratory/Chest: Denies cough or dyspnea Genitourinary Genitourinary ED: Denies dysuria Musculoskeletal Musculoskeletal: Denies arthralgias Integumentary Denies abscess Neurologic Neurologic: Denies headache(s) Psychiatric Psychiatric: Denies anxiety Endocrine Endocrinology: Denies cold intolerance Hematologic/Lymphatic Hematologic/Lymphatic: Reports none; Denies systems reviewed and no addt'l complaints, except as documented Allergic/Immunologic Allergic/Immunologic ED: Denies mouth swelling, tongue swelling or urticaria EXAM Physical Exam Narrative Exam Narrative: 77-year-old female no acute distress. Vital signs stable and afebrile. Pulse ox 100% on room air no hypoxia. She is awake alert. Answering questions and following commands. Family is at bedside. H EENT exam unremarkable atraumatic. Pupils round reactive light. Nontender. No facial droop. Normal speech. Neck nontender. Lungs are clear. Heart regular rhythm rate about 80 no murmur. Chest wall nontender. Abdomen soft nontender. Moving all 4 extremities. Normal international coordinator strength. Normal dorsi plantarflexion. Back nontender. Skin unremarkable. Patient is awake and alert. She knows month, year, where she is at and the president night states. Her NIH score currently is normal. Const Vital Signs: 06/16/22 21:27 06/16/22 21:39 06/16/22 21:39 Temperature 98.9 F 98.9 F Temperature Source Temporal Temporal Pulse Rate 67 84 84 Respiratory Rate 18 18 18 Blood Pressure 154/109 H 177/121 H 172/121 H Blood Pressure Mean 124 139 138 Pulse Ox 100 Oxygen Delivery Method Room Air Positive well nourished, well developed and obese; Negative for cachectic, contractures or unkempt General Appearance ED: well developed and NAD; Negative for unkempt, cachectic, contractures, cyanotic or diaphoretic Nutritional Appearance: obese; Negative for cachectic HEENT Reports moist mucous membranes; Denies dry mucous membranes Negative for trauma or tenderness Mouth ED: No dry mucous membranes Mouth: No dry mucous membranes Eyes PERRL and EOMs intact bilaterally General Eye ED: Negative for pale conjunctiva or scleral icterus Neck no lymphadenopathy, supple and no JVD General: Negative for tenderness Lymph Lymphatic: Negative for other Chest Wall inspection of chest normal and palpation of chest normal Resp normal respiratory effort and clear to auscultation bilaterally Effort and Inspection: Negative for retractions Auscultation: Negative for rales, rhonchi or wheezes Cardio regular rate, regular rhythm, S1 normal heart sound, S2 normal heart sound and no murmurs GI normal to inspection, nondistended, normoactive bowel sounds, non-tender, non- distended and no masses Inspection: Negative for abdominal distention Auscultation: normoactive bowel sounds Palpation: soft; Negative for tender or guarding Back/Spine no CVA tenderness General Back: Negative for CVA tenderness Cervical Spine: Negative for cervical spine tenderness Thoracic Spine / Upper Back: Negative for thoracic spinal tenderness Lumbar Spine / Lower Back: Negative for lumbar spinal tenderness Extremity normal to inspection General Extremety ED: Negative for edema or tenderness General Extremity: Negative for edema Neuro oriented x3 Neuro Narrative: Patient is awake and alert. Normal speech. No motor weakness. No facial droop. No slurred speech. Knows where she is at. Knows month, year and president. Unremarkable neurologic exam lying in bed. Fingertip to nose within normal limits. NIH is 0. Sensorium / Orientation: alert; Negative for orientation impaired, lethargic or stuporous Motor Exam: strength 5/5 throughout Psych mental status grossly normal Appearance: Negative for unkempt Attitude: No agitated Mood & Affect: Negative for depressed, anxious or tearful Skin no rashes or lesions noted and no wounds Lesions: No lesion noted Rashes: No rashes noted Trauma: Negative for abrasion Wounds: Negative for wounds noted MDM MDM MDM Narrative Medical decision making narrative: 77-year-old with mental status change. She is on the blood thinner Coumadin. CAT scan and screening labs to be obtained. Exam benign at this time. Repeat exam at 10:55 PM patient doing well. She is awake and alert. She knows she is in the hospital. She and I and her family went over her test results. They are comfortable with her being discharged home. She is an outpatient appoint with her primary care physician on Thursday. They know to return if worse. Lab Data Attestation: I reviewed the patient's lab results. Lab results narrative: CBC unremarkable. White count of 7.4. H&H of 13 and 39. Platelets are slightly low normal 136. Patient is on Coumadin INR is 3.0. Urinalysis is negative. No nitrites, white or red cells. No bacteria. Electrolytes unremarkable. Normal anion gap. Normal BUN and creatinine. Liver enzymes unremarkable. Labs show no significant change from the prior. She has a history of thrombocytopenia. Labs: Laboratory Results - last 24 hr 08/22/22 08/22/22 08/22/22 21:55 22:05 22:05 WBC 7.4 RBC 4.00 L Hgb 13.5 Hct 39.3 MCV 98.3 MCH 33.8 H MCHC 34.4 RDW Std Deviation 47.7 H RDW Coeff of Jason 13.2 Plt Count 136 L MPV 10.0 Immature Gran % (Auto) 0.500 Neut % (Auto) 75.8 H Lymph % (Auto) 14.1 L Boyd % (Auto) 6.7 Eos % (Auto) 2.4 Baso % (Auto) 0.5 Absolute Neuts (auto) 5.6 Absolute Lymphs (auto) 1.05 Nucleated RBC % 0 PT 30.9 H INR 3.0 Sodium Potassium Chloride Carbon Dioxide Anion Gap BUN Creatinine Estim Creat Clear Calc Est GFR (MDRD) Af Amer Est GFR (MDRD) Non-Af BUN/Creatinine Ratio Glucose Calcium Total Bilirubin AST ALT Alkaline Phosphatase Total Protein Albumin Globulin Albumin/Globulin Ratio Urine Color Yellow Urine Clarity Clear Urine pH 6.0 Ur Specific [place] 1.015 Urine Protein Negative Urine Glucose (UA) Normal Urine Ketones Negative Urine Occult Blood 10 H Urine Nitrite Negative Urine Bilirubin Negative Urine Urobilinogen Normal Ur Leukocyte Esterase Negative Urine RBC 0 SEEN Urine WBC 0 SEEN Ur Squamous Epith Cells 0 SEEN Urine Bacteria 0 SEEN Urine Mucus 0 SEEN 06/16/22 22:05 WBC RBC Hgb Hct MCV MCH MCHC RDW Std Deviation RDW Coeff of Jason Plt Count MPV Immature Gran % (Auto) Neut % (Auto) Lymph % (Auto) Boyd % (Auto) Eos % (Auto) Baso % (Auto) Absolute Neuts (auto) Absolute Lymphs (auto) Nucleated RBC % PT INR Sodium 139 Potassium 3.7 Chloride 105 Carbon Dioxide 26.0 Anion Gap 8 BUN 17 Creatinine 1.07 H Estim Creat Clear Calc 45.83 Est GFR (MDRD) Af Amer 64 Est GFR (MDRD) Non-Af 53 L BUN/Creatinine Ratio 15.9 Glucose 136 H Calcium 9.0 Total Bilirubin 0.80 AST 19 ALT 22 Alkaline Phosphatase 93 Total Protein 7.3 Albumin 3.5 Globulin 3.8 Albumin/Globulin Ratio 0.9 Urine Color Urine Clarity Urine pH Ur Specific [place] Urine Protein Urine Glucose (UA) Urine Ketones Urine Occult Blood Urine Nitrite Urine Bilirubin Urine Urobilinogen Ur Leukocyte Esterase Urine RBC Urine WBC Ur Squamous Epith Cells Urine Bacteria Urine Mucus Radiography Chest X-Ray - ED: 1 View, Read by ED Physician, Heart, Lungs, Mediastinum, Bony Structures and No Acute Disease Diagnostic Testing: Clinical Impression(s) from Imaging Studies Brain CT 06/16/22 22:15 IMPRESSION: No acute intracranial abnormality. Chronic involutional and ischemic changes of the brain. Electronically Signed: Imer Davis MD at 22:48 EDT , Chest x-ray, portable, single view interpreted by myself shows no acute abnormality. Left-sided pacemaker. No infiltrate. CAT scan of brain shows no acute process. Read by the radiologist and reviewed by me. Rhythm Strip Rhythm Strip: Paced Rate: 62 Ectopy: None EKG Initial EKG: Attestation: I personally reviewed and interpreted this EKG as follows: Interpretation: Paced Comments: Paced rhythm rate of 62 no acute signs of SC or ischemia. Discharge Plan Triage Chief Complaint: Confusion ED Provider: Abdifatah Lemon Dx/Rx/DC Orders Clinical Impression: Acute confusion, Chronic anticoagulation, History of atrial fibrillation, History of diabetes mellitus Instructions: ED Confusion Prescriptions: No Action oxycodone-acetaminophen 5-325 mg tablet 1 tab PO DAILY PRN (Reason: pain) triamcinolone acetonide 0.1 % cream 1 g TOPICAL PRN PRN (Reason: Rash/Topical Irritation) Label Comments: APPLY TO THE AFFECTED AREA(S) on extremities & leg THREE TIMES DAILY NEEDED glimepiride 2 mg tablet 2 mg PO DAILY PRN (Reason: DIABETES) Label Comments: IF BS OVER 200 (DME) TENS unit electrodes Pad See Rx Instructions .ROUTE .MEDSUPPLY Qty: 2 Rx Instructions: As directed Symbicort 160-4.5 mcg/actuation HFA aerosol inhaler 2 puff INHALATION BID Qty: 10.2 11RF montelukast [Singulair] 10 mg tablet 10 mg PO QPM Qty: 30 3RF metformin 500 mg tablet 1,000 mg PO BID warfarin 5 MG tablet 5 mg PO DAILY Protocol: Dose Management Condition: Thursday Dose/Route: 5 mg Instruction: 1 x 5 mg tablet Condition: Thursday Dose/Route: 5 mg Instruction: 1 x 5 mg tablet Condition: Thursday Dose/Route: 5 mg Instruction: 1 x 5 mg tablet Condition: Thursday Dose/Route: 2.5 mg Instruction: 0.5 x 5 mg tablets Condition: Dose/Route: 2.5 mg Instruction: 0.5 x 5 mg tablets Condition: Thursday Dose/Route: 5 mg Instruction: 1 x 5 mg tablet Condition: Thursday Dose/Route: 5 mg Instruction: 1 x 5 mg tablet Protocol Text: Adjustment Start Date: Thursday04/02/22 INR Value: 2.2 INR Date: 04/02/22 Recheck Date: 04/23/22 Rx Instructions: 5 mg. , , THU gabapentin 300 MG capsule 300 mg PO QHS atorvastatin 10 MG tablet 10 mg PO QHS magnesium oxide 400 mg capsule 400 mg capsule 400 mg PO DAILY albuterol sulfate 90 mcg/actuation HFA aerosol inhaler 2 puff INHALATION Q4H PRN (Reason: shortness of breath or wheezing) Qty: 8.5 6RF Rx Instructions: administer with spacer Primary Care Provider: Ro Reed Referrals: Ro Reed MD [Primary Care Provider] - 2 Days Activity Restrictions/Additional Instructions: Labs, CAT scan and chest x-ray were unremarkable. Follow-up with your scheduled appointment with your doctor this Thursday. Return if feeling worse. Continue your current medications. Your Coumadin level was 3.0. Your doctor can see any test results or labs that I did today. Disposition Disposition: Home, Self Care
--- NOTE | 2022-06-16 22:15 | RAD_ITS ---
INDICATION: ms change EXAMINATION/TECHNIQUE: X-RAY - XR Chest 1 View COMPARISON: 01/03/2021. FINDINGS: The lungs are clear. The heart is mildly enlarged. Left-sided cardiac device. No pleural effusion or pneumothorax. Degenerative changes of the thoracic spine. RAD/Chest 1 View (Portable) IMPRESSION: No acute radiographic abnormalities. Electronically Signed: Imer Davis MD at 23:48 EDT ,
--- NOTE | 2022-06-16 22:15 | CT_ITS ---
EXAMINATION : Head CT w/out contrast HISTORY : confusion COMPARISON : None. TECHNIQUE : Multiple contiguous axial images were obtained from the skull base to the vertex without intravenous contrast. A radiation dose optimization technique was used for this scan. FINDINGS : There is no evidence for acute intracranial hemorrhage, mass effect, or midline shift. There is no extra-axial fluid collection. There are periventricular white matter changes consistent with chronic microvascular ischemic disease. There is sulcal widening and ventricular enlargement consistent with cerebral atrophy. There is normal zamorano-white differentiation, without CT evidence of acute ischemia or infarct. The skull base and calvarium are unremarkable. The orbits are unremarkable. The paranasal sinuses are clear. The mastoid air cells are well-aerated. The soft tissues are unremarkable. CT/Brain/Head without Contrast IMPRESSION: No acute intracranial abnormality. Chronic involutional and ischemic changes of the brain. Electronically Signed: Imer Davis MD at 22:48 EDT ,
[2022-06-16 22:16] LABS: Bacteria 0 SEEN /hpf (None Seen); Mucous, Urine 0 SEEN /hpf (<or=2+); Red Blood Cells-Urine 0 SEEN /hpf (0-5); Squamous Epithelial Cells - UA 0 SEEN /hpf (5-10); White Blood Cells 0 SEEN /hpf (0-5)
[2022-06-16 22:25] LABS: Absolute Lymphocyte Count 1.05 X10^3/uL (0.83-4.51); Absolute Neutrophil Count 5.6 X10^3/uL (2.0-7.7); Basophil# 0.04 X10^3/uL; Basophil% 0.5 % (0-1); Eosinophil# 0.18 X10^3/uL; Eosinophils% 2.4 % (0-5); Hematocrit 39.3 % (37-47); Hemoglobin 13.5 g/dL (12.0-15.0); Lymphocyte # 1.05 X10^3/ul (0.83-4.51); Lymphocyte % 14.1 % (19-41); Mean Corp Hgb Conc 34.4 g/dL (32-36); Mean Corpuscular Hgb 33.8 pg (27.0-32.0); Mean Corpuscular Volume 98.3 fL (81-99); Monocyte% 6.7 % (0-10); NRBC Flagged by Analyzer 0 % (0-5); Neutrophil # 5.62 X10^3/uL (2.7-7.7); Neutrophil % 75.8 % (47-70); Platelet Count 136 K/mm3 (150-450); RBC Distribution Width CV 13.2 % (11.6-14.6); RBC Distribution Width SD 47.7 fl (35.1-43.9); White Blood Count 7.4 K/mm3 (4.4-11.0)
[2022-06-16 22:30] LABS: Prothrombin Time (Protime)PT. 30.9 SECONDS (11.7-14.9)
[2022-06-16 22:40] LABS: ALB/GLOB Ratio 0.9 RATIO (0.9-2.4); AST(SGOT) 19 U/L (15-37); Alanine Aminotransfer ALT/SGPT 22 U/L (13-56); Albumin, Serum 3.5 g/dL (3.2-5.0); Alkaline Phosphatase 93 U/L (45-117); Anion Gap 8 (5-15); BUN 17 mg/dL (7-18); BUN/Creat Ratio 15.9 RATIO (10-20); Chloride 105 mmol/L (98-107); Creatinine, Serum 1.07 mg/dL (0.55-1.02); EST Glomerular Filtration Rate 53 mL/min (>60); Est Glom Filt Rate - Afr Amer 64 mL/min (>60); Estimated Creatinine Clearance 45.83 ml/min; Globulin 3.8 g/dL (2.2-4.2); Glucose 136 mg/dL (74-106); Potassium 3.7 mmol/L (3.5-5.1); Protein, Total 7.3 g/dL (6.4-8.2); Sodium Level 139 mmol/L (136-145)
[2022-06-16 22:41] LABS: Color, Urine Yellow (Yellow); Glucose, Dipstick Normal (Normal); Ketone-Dipstick Negative (Negative); Leukocyte Esterase-Dipstick Negative /ul (Negative); Nitrite-Dipstick Negative (Negative); Occult Blood-Urine 10 /ul (Negative); Protein-Dipstick Negative (Negative); Specific Gravity, Urine 1.015 (1.002-1.030); Urine Bilirubin Dipstick Negative (Negative); Urine Clarity Clear (Clear); Urine Urobilinogen Normal (Normal)
[2022-06-16 23:02] VITALS: BP 156/77; PULSE 65; RESP 16; O2SAT 96
== END 2022-06-16 23:12 | disposition home or self-care (01) ==
PROVIDERS: Emergency Provider Emergency Medicine; PCP Internal Medicine; Visit Provider Emergency Medicine
DX: R41.0 Disorientation, unspecified (principal); I48.91 Unspecified atrial fibrillation; E11.9 Type 2 diabetes mellitus without complications; E78.5 Hyperlipidemia, unspecified; I10 Essential (primary) hypertension; Z95.0 Presence of cardiac pacemaker; J45.909 Unspecified asthma, uncomplicated; E66.9 Obesity, unspecified; Z79.84 Long term (current) use of oral hypoglycemic drugs; Z79.51 Long term (current) use of inhaled steroids; Z79.01 Long term (current) use of anticoagulants
CPT/HCPCS: 70450; 71045; 80053; 81001; 85025; 85610; 93005; 99285; P9612; A4216

== ENCOUNTER 2022-06-17 14:27 | Emergency (ER) | payer MEDICARE, SELFPAY ==
[2022-06-17 14:28] VITALS: BP 141/86; PULSE 70; RESP 16; TEMP 37.4; O2SAT 98; BMI 28.6
--- NOTE | 2022-06-17 14:46 | CT_ITS ---
STUDY: CT BRAIN WITHOUT CONTRAST REASON FOR EXAM: Female, 77 years old. Weakness and confusion. RADIATION DOSAGE (If Supplied By Facility): CTDIvol = ( 44.99 ) mGy, DLP = ( 762.36 ) mGycm TECHNIQUE: Transaxial CT imaging of the brain was performed without administration of intravenous contrast material. Individualized dose optimization techniques were used for this CT. COMPARISON: Comparison is made with prior study dated 06/16/2022. FINDINGS: Normal soft tissue structures. Normal calvarium. There is mild cerebral atrophy with widening of the extra-axial spaces and ventricular dilatation. There are areas of decreased attenuation within the white matter tracts of the supratentorial brain, consistent with microvascular disease changes. Normal basal ganglia and thalami. Normal brainstem. Normal cerebellum. There is no intracranial hemorrhage. There are no findings of an acute ischemic infarction. Atherosclerotic plaque formation of the cavernous portions of the internal carotid arteries bilaterally. Partial opacification of the ethmoid sinuses bilaterally. Minimal degree of mucosal thickening along the anterior aspect of the sphenoid sinus. CT/Brain/Head without Contrast IMPRESSION: Chronic involutional changes of the brain. Electronically Signed: Chance Pearl MD at 15:37 EDT ,
--- NOTE | 2022-06-17 14:46 | EKG12_ITS ---
Test Reason : CONFUSION Blood Pressure : / mmHG Vent. Rate : 060 BPM Atrial Rate : 060 BPM P-R Int : 000 ms QRS Dur : 054 ms QT Int : 424 ms P-R-T Axes : 090 020 033 degrees QTc Int : 424 ms Ventricular-paced rhythm Abnormal ECG Confirmed by MONROE NICOLE, ZOE ([id number]), acquisition editor MAURY WOODARD ([id number]) on 06/18/2022 8:50:38 AM Referred By: BRYAN Confirmed By:ZOE CHILDRESS MD
--- NOTE | 2022-06-17 14:53 | EDS_ITS ---
HPI History of Present Illness Chief Complaint: Confusion Informant: patient and family Narrative Narrative: Patient Paco presents with confusion. I went over the history with the patient and her daughter. Her daughter talks to her at least twice a day and lives across the street. Yesterday morning her mother sounded fine. Even at 5:00 or so last night she sounded pretty normal. The patient then called after that and asked her daughter why she was at the fair with her dogs. The patient was with her dogs but she was across the street in her house not at the fair. She was brought in and evaluated. She had an extensive evaluation. She was doing regan r. They had a conversation with the family and they chose to go home with her. Today she seems confused again. She is also unsteady with gait. She tends to walk as if she is drunk. She tends to lean more toward the left than the right but there is no focal weakness. No visual complaints. No headache or trauma. No indication of new or change medication. Patient does not drink alcohol at [facility]. She has not had strokes. She has had atrial fibrillation but is on Coumadin. Patient also has had increased frequency of urine in the last few days but no dysuria or odor. No fevers. Her sugars have been up around 200 which is high for her which might be causing her polyuria. They brought her back in because she is confused unstable again and she is not herself. This is a relatively acute change since yesterday. She does not have history of this confusion, dementia, unstable gait or urinary incontinence. 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 Obesity RAMESH (obstructive sleep apnea) Other secondary pulmonary hypertension Palpitations Pneumonia Shoulder dislocation Home Medications warfarin 5 mg tablet 5 mg PO SUMOTUFRSA afib 11/18/18 [History Last Taken 06/15/22] atorvastatin 10 mg tablet 10 mg PO QHS cholesterol 12/11/19 [History Last Taken 06/15/22] gabapentin 300 mg capsule 600 mg PO DAILY Neuropathy 12/11/19 [History Last Taken 06/15/22] TENS unit electrodes #2 ea 07/11/20 [History Last Taken Unknown] oxycodone-acetaminophen 5 mg-325 mg tablet 1 tab PO DAILY PRN pain 12/07/20 [History Last Taken 06/15/22] albuterol sulfate 90 mcg/actuation aerosol inhaler 2 puff inhalation Q4H PRN shortness of breath or wheezing #8.5 grams 05/07/21 [Rx Last Taken 06/17/22] budesonide-formoterol HFA 160 mcg-4.5 mcg/actuation aerosol inhaler (Symbicort) 2 puff inhalation BID asthma #10.2 grams 10/08/21 [Rx Last Taken 06/16/22] cyclobenzaprine 10 mg tablet 5 - 10 mg PO BID PRN Spasms 06/17/22 [History Last Taken 06/16/22] gabapentin 300 mg capsule 300 mg PO QHS 06/17/22 [History Last Taken 06/16/22] magnesium oxide 400 mg PO DAILY 06/17/22 [History Last Taken 06/16/22] metformin 500 mg tablet,extended release 24 hr 1,000 mg PO BID DM 06/17/22 [History Last Taken 06/16/22] ondansetron 4 mg disintegrating tablet 4 mg PO Q8H PRN nausea and vomiting #15 tabs 06/17/22 [Rx Last Taken Unknown] warfarin 5 mg tablet 2.5 mg PO WETH 06/17/22 [History Last Taken 06/12/22] Allergy/AdvReac Type Severity Reaction Status Date / Time amoxicillin Allergy Severe Hives Verified 06/17/22 14:28 aspirin Allergy Severe Hives, SOB Verified 06/17/22 14:28 Sulfa (Sulfonamide Allergy Severe Hives Verified 06/17/22 14:28 Antibiotics) Family History Mother Diabetes Father CAD (coronary artery disease) Sister Lung cancer Son Kidney stone Surgical History History of appendectomy History of kidney surgery Presence of permanent cardiac pacemaker (04/01/19) Social History household members: none housing: house Smoking Status: Never smoker alcohol intake: never substance use type: does not use what type of physical activity do you participate in: none do you feel safe at home: Yes ROS ROS ED Constitutional Constitutional ED: Denies chills, fever(s) or subjective Eyes Eyes: Denies change in vision ENT ENT ED: Denies rhinorrhea or sore throat Cardiovascular Cardiovascular: Denies chest pain, palpitations or racing heartbeat Respiratory/Chest Respiratory/Chest: Denies cough or dyspnea Gastrointestinal Gastrointestinal: Reports nausea, vomiting and other Details: She did have nausea this morning. She vomited a couple times but no blood. She just has mild nausea now. No abdominal pain though. ; Denies abdominal pain Genitourinary Genitourinary ED: Reports urinary frequency; Denies dysuria or hematuria Musculoskeletal Musculoskeletal: Denies arthralgias or myalgias Integumentary Denies rash Neurologic Neurologic: Reports other Details: See history of present illness. ; Denies headache(s), paresthesias or weakness Psychiatric Psychiatric: Denies anxiety or depression Endocrine Endocrinology: Reports polyuria; Denies polydipsia Hematologic/Lymphatic Hematologic/Lymphatic: Reports easy bleeding and easy bruising Allergic/Immunologic Allergic/Immunologic ED: Denies urticaria EXAM Physical Exam Const Vital Signs: 06/17/22 14:28 06/17/22 14:55 06/17/22 16:14 Temperature 99.3 F H 99.3 F H 97.0 F L Temperature Source Oral Oral Temporal Pulse Rate 70 60 123 H Respiratory Rate 16 14 16 Blood Pressure 141/86 H 147/73 H 129/62 H Blood Pressure Mean 104 97 84 Pulse Ox 98 100 96 Oxygen Delivery Method Room Air Room Air Room Air 06/17/22 16:36 Temperature 97.0 F L Temperature Source Temporal Pulse Rate 120 H Respiratory Rate 22 H Blood Pressure 133/70 H Blood Pressure Mean 91 Pulse Ox 98 Oxygen Delivery Method Room Air Positive well nourished and well developed Constitutional Narrative: Patient is very pleasant. Nontoxic. Very interactive. General Appearance ED: well developed and NAD; Negative for cyanotic, diaphoretic or pallor HEENT Reports moist mucous membranes Eyes EOMs intact bilaterally Eyes Narrative: No visual field cut. Neck no JVD Neck Narrative: I hear no carotid bruit. Chest Wall inspection of chest normal Chest Narrative: Pacemaker normal in upper left chest Resp normal respiratory effort Auscultation: Negative for rales or rhonchi Cardio regular rate and regular rhythm GI normal to inspection, nondistended, normoactive bowel sounds, non-tender and non-distended Palpation: Negative for soft Back/Spine no CVA tenderness General Back: Negative for CVA tenderness Extremity Extremity Narrative: Mild chronic hemosiderin changes General Extremety ED: Negative for tenderness Neuro Neuro Narrative: Patient is ANO x3. I find no focal weakness. I find no sensory change. No visual field cut. No facial droop. NIH is 0 at this moment. Sensorium / Orientation: alert Psych mental status grossly normal Skin no rashes or lesions noted General Skin Exam: Negative for pallor MDM MDM MDM Narrative Medical decision making narrative: Patient's labs show normal CBC. INR is just a little bit lower but just below therapeutic. Electrolytes look good. Glucose is mildly up. LFTs are good. Patient does not feel like she needs to urinate. She did have a urinalysis yesterday it was completely normal. Of note, her vitals have a heart rate recorded is 120. But the monitor is double reading her QRS and T waves. Her heart rate is about 60-75. Patient did get up and walk with a walker and she did surprisingly well. She has a walker at home. She is supposed to use a walker at home. Her COVID ends up being positive. We now find out that she was exposed to a niece who had COVID and she was at a graduation and a large crowd of people. Patient and her daughter would like her to go home. They can keep a close eye on her. Her only episode of confusion was the episode yesterday where she thought she was at the fair. This is not been recurring. She is ANO x3 and and president [employer] and current events. We discussed Paxlovid. She does not want to consider this at this time. I explained if she changes her thoughts, she could have that for another about 3 days. She was not vaccinated. Lab Data Attestation: I reviewed the patient's lab results. Labs: Laboratory Results - last 24 hr 06/17/22 06/17/22 06/17/22 15:00 15:00 15:00 WBC 7.4 RBC 3.96 L Hgb 12.9 Hct 38.5 MCV 97.2 MCH 32.6 H MCHC 33.5 RDW Std Deviation 46.9 H RDW Coeff of Jason 13.2 Plt Count 129 L MPV 9.3 Immature Gran % (Auto) 0.500 Neut % (Auto) 83.0 H Lymph % (Auto) 8.1 L [place] % (Auto) 7.7 Eos % (Auto) 0.3 Baso % (Auto) 0.4 Absolute Neuts (auto) 6.2 Absolute Lymphs (auto) 0.60 L Nucleated RBC % 0 Differential Comment SCANNED PT 20.9 H INR 1.8 Sodium 135 L Potassium 3.6 Chloride 101 Carbon Dioxide 25.0 Anion Gap 9 BUN 12 Creatinine 0.94 Estim Creat Clear Calc 55.92 Est GFR (MDRD) Af Amer 74 Est GFR (MDRD) Non-Af 61 BUN/Creatinine Ratio 12.7 Glucose 154 H Calcium 8.9 Total Bilirubin 1.00 AST 20 ALT 20 Alkaline Phosphatase 70 Troponin I High Sens 10 Total Protein 7.2 Albumin 3.4 Globulin 3.8 Albumin/Globulin Ratio 0.9 Radiography Diagnostic Testing: Clinical Impression(s) from Imaging Studies Brain CT 06/17/22 14:46 IMPRESSION: Chronic involutional changes of the brain. Electronically Signed: Chance Pearl MD at 15:37 EDT , EKG Initial EKG: Comments: EKG done for generalized weakness read by me shows ventricularly paced rhythm with possible underlying flutter or fib. Overall rate of 60. No acute ST elevation or depression. QRS duration and QTc are normal. Discharge Plan Triage Chief Complaint: Confusion ED Provider: Naren Kumari Dx/Rx/DC Orders Clinical Impression: COVID-19, Generalized weakness, Nausea & vomiting Instructions: Coronavirus Disease 2019 (COVID-19): Caring for Yourself or Others Prescriptions: New ondansetron 4 mg tablet,disintegrating 4 mg PO Q8H PRN (Reason: nausea and vomiting) Qty: 15 0RF No Action oxycodone-acetaminophen 5-325 mg tablet 1 tab PO DAILY PRN (Reason: pain) (DME) TENS unit electrodes Pad See Rx Instructions .ROUTE .MEDSUPPLY Qty: 2 Rx Instructions: As directed Symbicort 160-4.5 mcg/actuation HFA aerosol inhaler 2 puff INHALATION BID Qty: 10.2 11RF warfarin 5 MG tablet 5 mg PO SUMOTUFRSA Protocol: Dose Management Condition: Thursday Dose/Route: 5 mg Instruction: 1 x 5 mg tablet Condition: Thursday Dose/Route: 5 mg Instruction: 1 x 5 mg tablet Condition: Thursday Dose/Route: 5 mg Instruction: 1 x 5 mg tablet Condition: Thursday Dose/Route: 2.5 mg Instruction: 0.5 x 5 mg tablets Condition: Dose/Route: 2.5 mg Instruction: 0.5 x 5 mg tablets Condition: Thursday Dose/Route: 5 mg Instruction: 1 x 5 mg tablet Condition: Thursday Dose/Route: 5 mg Instruction: 1 x 5 mg tablet Protocol Text: Adjustment Start Date: Thursday04/02/22 INR Value: 2.2 INR Date: 04/02/22 Recheck Date: 04/23/22 Rx Instructions: 5 mg. , , THU gabapentin 300 MG capsule 600 mg PO DAILY atorvastatin 10 MG tablet 10 mg PO QHS gabapentin 300 mg capsule 300 mg PO QHS Label Comments: Take 2 capsules by mouth daily at bedtime AND 1 capsule every morning. cyclobenzaprine [Flexeril] 10 mg Tablet 5 - 10 mg PO BID PRN (Reason: Spasms) warfarin 5 mg tablet 2.5 mg PO WETH metformin 500 mg tablet extended release 24 hr 1,000 mg PO BID Label Comments: Take 2 tablets by mouth twice daily with meals. magnesium oxide 400 mg magnesium Tablet 400 mg PO DAILY albuterol sulfate 90 mcg/actuation HFA aerosol inhaler 2 puff INHALATION Q4H PRN (Reason: shortness of breath or wheezing) Qty: 8.5 6RF Rx Instructions: administer with spacer Primary Care Provider: Ro Reed Referrals: Ro Reed MD [Primary Care Provider] - 1 Week if not improving Disposition Disposition: Home, Self Care
[2022-06-17 14:55] VITALS: BP 147/73; PULSE 60; RESP 14; TEMP 37.4; O2SAT 100
[2022-06-17] MEDS: Ondansetron 4 MG/2 ML Vial IV (15:05)
[2022-06-17 15:14] LABS: Absolute Neutrophil Count 6.2 X10^3/uL (2.0-7.7); Basophil# 0.03 X10^3/uL; Basophil% 0.4 % (0-1); Eosinophil# 0.02 X10^3/uL; Eosinophils% 0.3 % (0-5); Hematocrit 38.5 % (37-47); Hemoglobin 12.9 g/dL (12.0-15.0); Lymphocyte % 8.1 % (19-41); Mean Corp Hgb Conc 33.5 g/dL (32-36); Mean Corpuscular Hgb 32.6 pg (27.0-32.0); Mean Corpuscular Volume 97.2 fL (81-99); Mean Platelet Vol. 9.3 fl (6.2-12.0); Monocyte# 0.57 X10^3/uL; Monocyte% 7.7 % (0-10); NRBC Flagged by Analyzer 0 % (0-5); Neutrophil # 6.18 X10^3/uL (2.7-7.7); POSITIVE DIFFERENTIAL YES; Platelet Count 129 K/mm3 (150-450); RBC Distribution Width CV 13.2 % (11.6-14.6); RBC Distribution Width SD 46.9 fl (35.1-43.9); Red Blood Count 3.96 M/mm3 (4.2-5.4); White Blood Count 7.4 K/mm3 (4.4-11.0)
[2022-06-17 15:15] LABS: Differential Indicated SCAN CRITERIA MET
[2022-06-17 15:21] LABS: International Normalized Ratio 1.8; Prothrombin Time (Protime)PT. 20.9 SECONDS (11.7-14.9)
[2022-06-17 15:31] LABS: ALB/GLOB Ratio 0.9 RATIO (0.9-2.4); AST(SGOT) 20 U/L (15-37); Alanine Aminotransfer ALT/SGPT 20 U/L (13-56); Albumin, Serum 3.4 g/dL (3.2-5.0); Alkaline Phosphatase 70 U/L (45-117); Anion Gap 9 (5-15); BUN 12 mg/dL (7-18); BUN/Creat Ratio 12.7 RATIO (10-20); Calcium,Total 8.9 mg/dL (8.5-10.1); Chloride 101 mmol/L (98-107); Creatinine, Serum 0.94 mg/dL (0.55-1.02); EST Glomerular Filtration Rate 61 mL/min (>60); Est Glom Filt Rate - Afr Amer 74 mL/min (>60); Estimated Creatinine Clearance 55.92 ml/min; Globulin 3.8 g/dL (2.2-4.2); Glucose 154 mg/dL (74-106); Potassium 3.6 mmol/L (3.5-5.1); Protein, Total 7.2 g/dL (6.4-8.2); Sodium Level 135 mmol/L (136-145); Troponin-I HS 10 pg/mL (3.0-54.0)
[2022-06-17 15:46] LABS: Differential Comment SCANNED
[2022-06-17 16:10] VITALS: O2SAT 96
[2022-06-17 16:14] VITALS: BP 129/62; PULSE 123; RESP 16; TEMP 36.1; O2SAT 96
[2022-06-17 16:36] VITALS: BP 133/70; PULSE 120; RESP 22; TEMP 36.1; O2SAT 98
[2022-06-17 17:20] VITALS: RESP 16; O2SAT 94
== END 2022-06-17 17:21 | disposition home or self-care (01) ==
PROVIDERS: Emergency Provider Emergency Medicine; PCP Internal Medicine; Visit Provider Emergency Medicine
DX: U07.1 COVID-19 (principal); I48.91 Unspecified atrial fibrillation; E11.9 Type 2 diabetes mellitus without complications; R53.1 Weakness; R11.2 Nausea with vomiting, unspecified; E78.5 Hyperlipidemia, unspecified; I10 Essential (primary) hypertension; G47.33 Obstructive sleep apnea (adult) (pediatric); Z95.0 Presence of cardiac pacemaker; Z79.01 Long term (current) use of anticoagulants; Z79.84 Long term (current) use of oral hypoglycemic drugs; Z79.899 Other long term (current) drug therapy
CPT/HCPCS: 70450; 80053; 84484; 85025; 85610; 87428; 93005; 96374; 99285; A4216; J2405

== ENCOUNTER 2022-06-17 23:41 | Observation (INO) | payer MEDICARE, SELFPAY ==
[2022-06-17 23:42] VITALS: BP 141/84; PULSE 66; RESP 19; TEMP 36.8; O2SAT 94; BMI 30.2
[2022-06-18] VITALS (15 sets, daily range): BP systolic 98–147; BP diastolic 58–83; PULSE 60–100; RESP 15–20; TEMP 36.4–38; O2SAT 94–98; BMI 29.5
--- NOTE | 2022-06-18 00:08 | EDS_ITS ---
HPI History of Present Illness Chief Complaint: Alt LOC Informant: patient and family Onset/Context/Timing Onset: Yesterday Context: Gradual Onset Timing: Waxes and wanes Quality: Confusion Location: Generalized Worsened by: Nothing Relieved by: Nothing Narrative Narrative: Patient presents with confusion, and ataxia that began yesterday. Family states that seems to be getting worse. Family states patient was confused as to where she was out earlier today. Daughter also states that the patient told her that she was talking on the phone when she was actually holding the remote control in her hand and was talking into the remote control. Currently, she is oriented x3 and knows who the vice president residential [employer] is. Family states that the symptoms have been waxing and waning since yesterday. Patient was seen here twice for this. Patient was recently diagnosed with COVID-19. Family states patient has been having some nausea and vomiting. Patient admits to some subjective chills. Patient and family states that nothing seems to be helping with her symptoms and nothing seems to be making her symptoms worse. Family also reports that the patient did have an episode of urinary incontinence tonight. Family is concerned that this could be from a urinary tract infection. 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 Obesity RAMESH (obstructive sleep apnea) Other secondary pulmonary hypertension Palpitations Pneumonia Shoulder dislocation Home Medications warfarin 5 mg tablet 5 mg PO SUMOTUFRSA afib 11/18/18 [History Last Taken 06/15/22] atorvastatin 10 mg tablet 10 mg PO QHS cholesterol 12/11/19 [History Last Taken 06/15/22] gabapentin 300 mg capsule 600 mg PO DAILY Neuropathy 12/11/19 [History Last Taken 06/15/22] TENS unit electrodes #2 ea 07/11/20 [History Last Taken Unknown] oxycodone-acetaminophen 5 mg-325 mg tablet 1 tab PO DAILY PRN pain 12/07/20 [History Last Taken 06/15/22] albuterol sulfate 90 mcg/actuation aerosol inhaler 2 puff inhalation Q4H PRN shortness of breath or wheezing #8.5 grams 05/07/21 [Rx Last Taken 06/17/22] budesonide-formoterol HFA 160 mcg-4.5 mcg/actuation aerosol inhaler (Symbicort) 2 puff inhalation BID asthma #10.2 grams 10/08/21 [Rx Last Taken 06/16/22] cyclobenzaprine 10 mg tablet 5 - 10 mg PO BID PRN Spasms 06/17/22 [History Last Taken 06/16/22] gabapentin 300 mg capsule 300 mg PO QHS 06/17/22 [History Last Taken 06/16/22] magnesium oxide 400 mg PO DAILY 06/17/22 [History Last Taken 06/16/22] metformin 500 mg tablet,extended release 24 hr 1,000 mg PO BID DM 06/17/22 [History Last Taken 06/16/22] ondansetron 4 mg disintegrating tablet 4 mg PO Q8H PRN nausea and vomiting #15 tabs 06/17/22 [Rx Last Taken Unknown] warfarin 5 mg tablet 2.5 mg PO WETH 06/17/22 [History Last Taken 06/12/22] Allergy/AdvReac Type Severity Reaction Status Date / Time amoxicillin Allergy Severe Hives Verified 06/17/22 23:48 aspirin Allergy Severe Hives, SOB Verified 06/17/22 23:48 Sulfa (Sulfonamide Allergy Severe Hives Verified 06/17/22 23:48 Antibiotics) Family History Mother Diabetes Father CAD (coronary artery disease) Sister Lung cancer Son Kidney stone Surgical History History of appendectomy History of kidney surgery Presence of permanent cardiac pacemaker (04/01/19) Social History household members: none housing: house Smoking Status: Never smoker alcohol intake: never substance use type: does not use what type of physical activity do you participate in: none do you feel safe at home: Yes ROS ROS ED Constitutional Constitutional ED: Reports chills and subjective; Denies fever(s) Eyes Eyes: Denies blurry vision or change in vision ENT ENT ED: Denies rhinorrhea or sore throat Cardiovascular Cardiovascular: Denies chest pain or palpitations Respiratory/Chest Respiratory/Chest: Denies cough or dyspnea Gastrointestinal Gastrointestinal: Reports nausea and vomiting Genitourinary Genitourinary ED: Denies dysuria or hematuria Musculoskeletal Musculoskeletal: Reports back pain; Denies neck pain Integumentary Denies abscess or rash Neurologic Neurologic: Denies headache(s) or weakness Allergic/Immunologic Allergic/Immunologic ED: Denies mouth swelling or urticaria EXAM Physical Exam Const Vital Signs: 06/17/22 23:42 06/18/22 02:17 06/18/22 02:43 Temperature 98.2 F Temperature Source Temporal Pulse Rate 66 60 60 Respiratory Rate 19 H 15 15 Blood Pressure 141/84 H 135/76 H 121/68 H Blood Pressure Mean 103 95 85 Pulse Ox 94 96 94 Oxygen Delivery Method Room Air Room Air Room Air Positive well nourished and well developed General Appearance ED: well developed HEENT Reports moist mucous membranes Neck supple and no JVD Resp normal respiratory effort and clear to auscultation bilaterally Cardio regular rate, regular rhythm and no murmurs GI normal to inspection, nondistended, normoactive bowel sounds and non-tender Palpation: soft Extremity normal to inspection General Extremety ED: Negative for edema or tenderness General Extremity: Negative for edema Neuro oriented x3, CN's II-XII intact bilaterally and no sensory deficits noted Sensorium / Orientation: alert Motor Exam: strength 5/5 throughout Psych mental status grossly normal Skin no rashes or lesions noted MDM MDM MDM Narrative Medical decision making narrative: See BC he was within normal limits. Comprehensive metabolic profile was essentially within normal limits. Urinalysis does not show any evidence of urinary tract infection. CT scan of the brain was obtained. There are chronic changes but no acute intracranial abnormality noted. This was interpreted by the radiologist and reviewed by myself. Patient is resting comfortably on reevaluation. Family was advised of the findings. Since this is her third visit in the last 2 days, I recommended admission to the hospital for further evaluation. Case was discussed with the hospitalist. She will admit the patient to her service to the PCU for observation. Family understood and was agreeable with Lab Data Attestation: I reviewed the patient's lab results. Labs: Laboratory Results - last 24 hr 06/18/22 06/18/22 06/18/22 00:20 00:20 02:10 WBC 6.6 RBC 4.05 L Hgb 13.3 Hct 39.7 MCV 98.0 MCH 32.8 H MCHC 33.5 RDW Std Deviation 47.7 H RDW Coeff of Jason 13.2 Plt Count 127 L MPV 9.5 Immature Gran % (Auto) 0.600 Neut % (Auto) 76.6 H Lymph % (Auto) 11.2 L [place] % (Auto) 10.9 H Eos % (Auto) 0.2 Baso % (Auto) 0.5 Absolute Neuts (auto) 5.1 Absolute Lymphs (auto) 0.74 L Nucleated RBC % 0 Sodium 135 L Potassium 3.4 L Chloride 101 Carbon Dioxide 26.0 Anion Gap 8 BUN 14 Creatinine 1.05 H Estim Creat Clear Calc 46.70 Est GFR (MDRD) Af Amer 66 Est GFR (MDRD) Non-Af 54 L BUN/Creatinine Ratio 13.3 Glucose 144 H Calcium 8.7 Total Bilirubin 0.80 AST 20 ALT 19 Alkaline Phosphatase 66 Total Protein 7.2 Albumin 3.4 Globulin 3.8 Albumin/Globulin Ratio 0.9 Urine Color Yellow Urine Clarity Clear Urine pH 5.0 Ur Specific [place] 1.020 Urine Protein 30 H Urine Glucose (UA) Normal Urine Ketones Negative Urine Occult Blood 10 H Urine Nitrite Negative Urine Bilirubin Negative Urine Urobilinogen Normal Ur Leukocyte Esterase 25 H Urine RBC 0-5 SEEN Urine WBC 0-5 SEEN Ur Squamous Epith Cells 0 SEEN Urine Bacteria RARE Urine Mucus 1+ Radiography Diagnostic Testing: Clinical Impression(s) from Imaging Studies Brain CT 06/18/22 00:11 IMPRESSION: No acute intracranial finding. MRI may be obtained if clinically indicated. Electronically Signed: Alireza Crawford MD at 1:42 EDT , Discharge Plan Dx/Rx/DC Orders Clinical Impression: Confusion, COVID-19, Ataxia Disposition Disposition: Acute Care [facility]
--- NOTE | 2022-06-18 00:11 | CT_ITS ---
STUDY: CT BRAIN WITHOUT CONTRAST REASON FOR EXAM: Female, 77 years old. Confusion RADIATION DOSAGE (If Supplied By Facility): CTDIvol = ( 44.99 ) mGy, DLP = ( 796.11 ) mGycm TECHNIQUE: Transaxial CT imaging of the brain was performed without administration of intravenous contrast material. Individualized dose optimization techniques were used for this CT. COMPARISON: 06/17/2022. FINDINGS: There is no intra-/extra-axial fluid collection, mass effect, or midline shift. The carmen/white matter junction is preserved. Hypoattenuation of periventricular and subcortical white matter suggestive of chronic small vessel ischemic disease. Mild diffuse parenchymal volume loss is noted. There is vascular calcification. The basal cisterns are patent. Mucoperiosteal thickening of the bilateral maxillary and sphenoid sinuses and ethmoid air cells is noted.. The calvarium is intact. CT/Brain/Head without Contrast IMPRESSION: No acute intracranial finding. MRI may be obtained if clinically indicated. Electronically Signed: Alireza Crawford MD at 1:42 EDT ,
[2022-06-18 00:47] LABS: Absolute Lymphocyte Count 0.74 X10^3/uL (0.83-4.51); Absolute Neutrophil Count 5.1 X10^3/uL (2.0-7.7); Basophil# 0.03 X10^3/uL; Basophil% 0.5 % (0-1); Eosinophil# 0.01 X10^3/uL; Eosinophils% 0.2 % (0-5); Hematocrit 39.7 % (37-47); Hemoglobin 13.3 g/dL (12.0-15.0); Lymphocyte # 0.74 X10^3/ul (0.83-4.51); Lymphocyte % 11.2 % (19-41); Mean Corp Hgb Conc 33.5 g/dL (32-36); Mean Corpuscular Hgb 32.8 pg (27.0-32.0); Mean Platelet Vol. 9.5 fl (6.2-12.0); Monocyte# 0.72 X10^3/uL; Monocyte% 10.9 % (0-10); NRBC Flagged by Analyzer 0 % (0-5); Neutrophil # 5.07 X10^3/uL (2.7-7.7); Neutrophil % 76.6 % (47-70); Platelet Count 127 K/mm3 (150-450); RBC Distribution Width CV 13.2 % (11.6-14.6); RBC Distribution Width SD 47.7 fl (35.1-43.9); Red Blood Count 4.05 M/mm3 (4.2-5.4); White Blood Count 6.6 K/mm3 (4.4-11.0)
[2022-06-18 01:07] LABS: ALB/GLOB Ratio 0.9 RATIO (0.9-2.4); AST(SGOT) 20 U/L (15-37); Alanine Aminotransfer ALT/SGPT 19 U/L (13-56); Albumin, Serum 3.4 g/dL (3.2-5.0); Alkaline Phosphatase 66 U/L (45-117); Anion Gap 8 (5-15); BUN 14 mg/dL (7-18); BUN/Creat Ratio 13.3 RATIO (10-20); Calcium,Total 8.7 mg/dL (8.5-10.1); Chloride 101 mmol/L (98-107); Creatinine, Serum 1.05 mg/dL (0.55-1.02); EST Glomerular Filtration Rate 54 mL/min (>60); Est Glom Filt Rate - Afr Amer 66 mL/min (>60); Globulin 3.8 g/dL (2.2-4.2); Glucose 144 mg/dL (74-106); Potassium 3.4 mmol/L (3.5-5.1); Protein, Total 7.2 g/dL (6.4-8.2); Sodium Level 135 mmol/L (136-145)
[2022-06-18 02:17] LABS: Squamous Epithelial Cells - UA 0 SEEN /hpf (5-10)
[2022-06-18 02:18] LABS: Color, Urine Yellow (Yellow); Glucose, Dipstick Normal (Normal); Ketone-Dipstick Negative (Negative); Leukocyte Esterase-Dipstick 25 /ul (Negative); Nitrite-Dipstick Negative (Negative); Occult Blood-Urine 10 /ul (Negative); Protein-Dipstick 30 mg/dl (Negative); Urine Bilirubin Dipstick Negative (Negative); Urine Clarity Clear (Clear); Urine Urobilinogen Normal (Normal)
[2022-06-18 02:31] LABS: Bacteria RARE /hpf (None Seen); Mucous, Urine 1+ /hpf (<or=2+); Red Blood Cells-Urine 0-5 SEEN /hpf (0-5); White Blood Cells 0-5 SEEN /hpf (0-5)
--- NOTE | 2022-06-18 02:48 | PCM.HP.STD ---
HPI - General General Date of Admission: 06/18/22 Date of Service: 06/18/22 Chief Complaint: Confusion HPI Narrative The patient is a 77 y/o F w/ PMHx: Chronic thrombocytopenia, Obesity, RAMESH noncompliance with CPAP, HTN, HLD, Asthma w/ allergic rhinitis, Diabetes mellitus type II, PAF/Flutter s/p EPS/RFA at [facility] (2019), Hx Sick sinus syndrome s/p pacemaker placement who presents to the [facility] ED on 06/18/22 with history of onset confusion as well as reported ataxia, falling into the rangel, starting the day prior which is progressively worsened with a specific example being usage of a remote control as a phone with symptoms intermittently improving to her baseline with the ED presentation notable for orientation x3 with recent evaluation x2 with recent COVID-19 diagnosis (06/17/22 incidental testing) with some mild nausea, emesis, loose stools and subjective chills with episode of urinary incontinence evening prior to presentation prompting ED evaluation. Patient of note was recently exposed to COVID via a niece who was COVID positive and she also attended recently a large graduation. She was of note on 06/17/22 evaluation in the ED offered paxlovid administration and declined. She is NOT vaccinated against COVID. She has had an ED evaluation on 06/16/22, 06/17/22 and no upon current evaluation. Work-up in the ED included T-max 99.3, heart rate initially 70 however did increase up to 123 with most recent heart rate 60, BP initially 141/86 with most recent repeat 121/68, respiratory rate 15, oxygenation 94% to 100% on room air, CBC with WC 6.6, hemoglobin 13.3, platelet 127 with lymphopenia, CMP with sodium 135, potassium 3.4, BUN/creatinine 14/1.05, glucose 144 otherwise hepatic profile unremarkable, urinalysis with elevated specific gravity 1.020, protein 30, negative nitrite, occult blood 10, leukocyte Estrace 25, no marked urine RBC or WBC with only noted rare urine bacteria, blood culture x2 pending per ED, urine culture pending per ED, CT of the brain with no acute intracranial findings. 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 Contact dermatitis and other eczema Cystitis DDD (degenerative disc disease) Diabetes mellitus Encephalopathy acute Essential hypertension Hx of bladder infections Hyperlipidemia Hypersomnia custodial (current) use of anticoagulants Obesity RAMESH (obstructive sleep apnea) Other secondary pulmonary hypertension Palpitations Pneumonia Shoulder dislocation Home Medications warfarin 5 mg tablet 5 mg PO SUMOTUFRSA afib 11/18/18 [History Last Taken 06/15/22] atorvastatin 10 mg tablet 10 mg PO QHS cholesterol 12/11/19 [History Last Taken 06/15/22] gabapentin 300 mg capsule 600 mg PO DAILY Neuropathy 12/11/19 [History Last Taken 06/15/22] TENS unit electrodes #2 ea 07/11/20 [History Last Taken Unknown] oxycodone-acetaminophen 5 mg-325 mg tablet 1 tab PO DAILY PRN pain 12/07/20 [History Last Taken 06/15/22] albuterol sulfate 90 mcg/actuation aerosol inhaler 2 puff inhalation Q4H PRN shortness of breath or wheezing #8.5 grams 05/07/21 [Rx Last Taken 06/17/22] budesonide-formoterol HFA 160 mcg-4.5 mcg/actuation aerosol inhaler (Symbicort) 2 puff inhalation BID asthma #10.2 grams 10/08/21 [Rx Last Taken 06/16/22] cyclobenzaprine 10 mg tablet 5 - 10 mg PO BID PRN Spasms 06/17/22 [History Last Taken 06/16/22] gabapentin 300 mg capsule 300 mg PO QHS 06/17/22 [History Last Taken 06/16/22] magnesium oxide 400 mg PO DAILY 06/17/22 [History Last Taken 06/16/22] metformin 500 mg tablet,extended release 24 hr 1,000 mg PO BID DM 06/17/22 [History Last Taken 06/16/22] ondansetron 4 mg disintegrating tablet 4 mg PO Q8H PRN nausea and vomiting #15 tabs 06/17/22 [Rx Last Taken Unknown] warfarin 5 mg tablet 2.5 mg PO WETH 06/17/22 [History Last Taken 06/12/22] Allergy/AdvReac Type Severity Reaction Status Date / Time amoxicillin Allergy Severe Hives Verified 06/17/22 23:48 aspirin Allergy Severe Hives, SOB Verified 06/17/22 23:48 Sulfa (Sulfonamide Allergy Severe Hives Verified 06/17/22 23:48 Antibiotics) Family History Mother Diabetes Father CAD (coronary artery disease) Sister Lung cancer Son Kidney stone Surgical History History of appendectomy History of kidney surgery Presence of permanent cardiac pacemaker (04/01/19) Social History household members: none housing: house Smoking Status: Never smoker alcohol intake: never substance use type: does not use what type of physical activity do you participate in: none do you feel safe at home: Yes ROS ROS Narrative Admission Review of Systems: CONSTITUTIONAL: No weight loss, fever, + chills, weakness or fatigue. HEENT: Eyes: No visual loss, blurred vision, double vision or yellow sclerae. Ears, Nose, Throat: No hearing loss, sneezing, congestion, runny nose or sore throat. SKIN: No rash or itching, lesions, wounds. CARDIOVASCULAR: No chest pain, chest pressure or chest discomfort, palpitations, edema, orthopnea, syncopal events. RESPIRATORY: No shortness of breath, cough or sputum, wheezing, hemoptysis. GASTROINTESTINAL: + anorexia, nausea, vomiting, diarrhea, No abdominal pain, melena, BRBPR. GENITOURINARY: + Incontinence. No dysuria, frequency, urgency or retention. NEUROLOGICAL: + Confusion, ataxia, headache, No dizziness, syncope, paralysis,numbness or tingling in the extremities, focal weakness, seizure. MUSCULOSKELETAL: + muscle, back pain, joint pain or stiffness. HEMATOLOGIC: + anemia, bleeding or bruising. LYMPHATICS: No enlarged nodes. No history of splenectomy. PSYCHIATRIC: No history of depression or anxiety. ENDOCRINOLOGIC: No reports of sweating, cold or heat intolerance. No polyuria or polydipsia. ALLERGIES: + history of asthma, rhinitis. Vital Signs Vital Signs Vital Signs: 06/17/22 23:42 06/18/22 02:17 06/18/22 02:43 Temperature 98.2 F Temperature Source Temporal Pulse Rate 66 60 60 Respiratory Rate 19 H 15 15 Blood Pressure 141/84 H 135/76 H 121/68 H Blood Pressure Mean 103 95 85 Pulse Ox 94 96 94 Oxygen Delivery Method Room Air Room Air Room Air Weight Weight: 198 lb 6.656 oz Body Mass Index (BMI) 30.2 Physical Exam Narrative Physical Examination: General: Patient asleep, awakens to stimuli however falls back asleep quickly, oriented previously x3, had improved following initial ED presentation, fatigued. Skin: Normal color, normal turgor, no icterus, no cyanosis. HEENT: AT/NC, EOMI, PERRLA, mildly dry MM, no carotid bruits or JVD noted. Lungs: Diminished, greater bases, moderate effort, no evidence of any distress, no rales, ronchi or wheezing. Heart: Regular rate and rhythm. Paced; no gallop, rub audible. Abdomen: Soft, obese, NTTP, ND, mildly hyperactive BS, no obvious evidence of HSM. Extremities: No cyanosis, clubbing, or edema. Neurological: Patient asleep, awakens to stimuli however falls back asleep quickly, oriented previously x3, had improved following initial ED presentation, fatigued, cognitive function improved, but not baseline intact; pupils equally reactive to light and accommodation, cranial nerves II-XII grossly normal, moving all 4 extremities, no focal deficits, strength moderately to severely global decreased, sensation intact, family notes primarily with activity attempts, falling but no to one specific side, FTN/HTS appropriate, equivocal babinski but difficult exam given notable fatigue. Psychiatric: Affect appears flat, fatigued, no acute evidence of depressive or anxiety feelings. Results Lab / Micro Data Result Diagrams: 06/18/22 00:20 06/18/22 00:20 Labs: Laboratory Results - last 24 hr 06/18/22 00:20: WBC 6.6, RBC 4.05 L, Hgb 13.3, Hct 39.7, MCV 98.0, MCH 32.8 H, MCHC 33.5, RDW Std Deviation 47.7 H, RDW Coeff of Jason 13.2, Plt Count 127 L, MPV 9.5, Immature Gran % (Auto) 0.600, Neut % (Auto) 76.6 H, Lymph % (Auto) 11.2 L, Cooper % (Auto) 10.9 H, Eos % (Auto) 0.2, Baso % (Auto) 0.5, Absolute Neuts (auto) 5.1, Absolute Lymphs (auto) 0.74 L, Nucleated RBC % 0 06/18/22 00:20: Sodium 135 L, Potassium 3.4 L, Chloride 101, Carbon Dioxide 26.0, Anion Gap 8, BUN 14, Creatinine 1.05 H, Estim Creat Clear Calc 46.70, Est GFR (MDRD) Af Amer 66, Est GFR (MDRD) Non-Af 54 L, BUN/Creatinine Ratio 13.3, Glucose 144 H, Calcium 8.7, Total Bilirubin 0.80, AST 20, ALT 19, Alkaline Phosphatase 66, Total Protein 7.2, Albumin 3.4, Globulin 3.8, Albumin/Globulin Ratio 0.9 06/18/22 02:10: Urine Color Yellow, Urine Clarity Clear, Urine pH 5.0, Ur Specific Upton 1.020, Urine Protein 30 H, Urine Glucose (UA) Normal, Urine Ketones Negative, Urine Occult Blood 10 H, Urine Nitrite Negative, Urine Bilirubin Negative, Urine Urobilinogen Normal, Ur Leukocyte Esterase 25 H, Urine RBC 0-5 SEEN, Urine WBC 0-5 SEEN, Ur Squamous Epith Cells 0 SEEN, Urine Bacteria RARE, Urine Mucus 1+ Radiology Impression Brain CT 06/18/22 00:11 IMPRESSION: No acute intracranial finding. MRI may be obtained if clinically indicated. Electronically Signed: Alireza Crawford MD at 1:42 EDT , Assessment & Plan Assessment/Plan (1) Acute confusion: (2) COVID-19: PLAN: Plan The patient is a 77 y/o F w/ PMHx: Chronic thrombocytopenia, Obesity, RAMESH noncompliance with CPAP, HTN, HLD, Asthma w/ allergic rhinitis, Diabetes mellitus type II, PAF/Flutter s/p EPS/RFA at [facility] (2019), Hx Sick sinus syndrome s/p pacemaker placement who presents to the [facility] ED on 06/18/22 with history of onset confusion as well as reported ataxia, falling into the rangel, starting the day prior which is progressively worsened with a specific example being usage of a remote control as a phone with symptoms intermittently improving to her baseline with the ED presentation notable for orientation x3 with recent evaluation x2 with recent COVID-19 diagnosis (06/17/22 incidental testing) with some mild nausea, emesis, loose stools and subjective chills with episode of urinary incontinence evening prior to presentation prompting ED evaluation. #1. Acute Encephalopathy secondary to Acute Viral Syndrome, COVID-19, Possible CVA, noted ataxia: Will admit to the PCU, maintain on COVID precautions, will maintain on oxygen with wean as tolerated to room air, PRN albuterol, HOB, IS parameters w/ pending sputum cultures, respiratory viral panel and urine antigens, will obtain D-dimer, procalcitonin, CRP, CPK, Ferritin, LDH, trop and BNP, continue supportive care including q 2 hour turning including prone given no prone bed availability and judicious hydration, closely monitor for worsening status for ARDS and multiorgan failure. Given no hypoxia will defer steroids and antiviral regimen at this time. Suspect confusion related to patient COVID status; however, to be cautious given history will further evaluate for CVA, INR requested as on coumadin, will obtain CT head and neck given pacemaker status, may need additional repeat CT head in 24-48 hours to further evaluate, hold on ECHO given COVID + status and recently performed 04/02/22 with normal LV systolic function, EF 60%, mildly enlarged LA and RA, trivial MVI and TVI, aortic sclerosis with no stenosis, trivial PVI, RVSP 31 mmHg, PT/OT/Speech/Nutrition evaluation per protocol. Will allow permissive HTN, maintain on Coumadin with INR trending, plavix given allergy pending work-up, statin w/ AM FLP, fall precautions. TSH, magnesium, FLP, hemoglobin A1c requested. Holding sedative opiates and flexeril. She will need to remain in quarantine as long as no hypoxia with initial onset symptoms 06/16/22 x 10 days. #2. Hypokalemia: Admission K+ 3.4, magnesium level requested, supplementation given, repeat level in AM. #3. PAF/flutter: Status post EPS/RFA at [facility] 2019, continue Coumadin with INR trending, not on rate or rhythm agent. #4. Hypertension: From current list not on agent, clarifying, permissive hypertension as noted. #5. Hyperlipidemia: Continue home statin regimen. AM FLP. #6. Chronic thrombocytopenia: Admission platelets 127, baseline appears 100-1 40s, will continue to trend. #7. Chronic asthma with allergic rhinitis: We will temporarily hold patient home inhalers and in the interim transition to ATC DuoNeb therapy,. Albuterol, encourage head of bed and I-S. #8. Diabetes mellitus type II with neuropathy: Hold oral home regimen, ADA diet, accu checks w/ ISS, continue home gabapentin regimen with hold as needed for sedation. #9. RAMESH: CPAP nightly have encouraged however patient has been noncompliant. #10. Obesity: Weight loss and lifestyle changes encouraged. #11. DVT prophylaxis: SCDs, continue Coumadin with INR trending. #12. CODE status: Patient healthcare power of securities attorney and living will or not in place. She notes she is in the process of setting these items up. Patient's eldest daughter is present. Discussed CODE status at length including difference between FULL code, DNR-CCA and DNR-CC status. Following discussions about the differences in these status, requested Full Code status. Discussed patient preference and will avoid antiviral treatments. Advanced Care Planning Face to Face Time: 16 minutes. Charges/Coding Visit Charges OBSV E&M: 06610 Initial observation care L3 Procedures Hospitalists Procedures: [id number] Advncd Care Plan 30 Min
--- NOTE | 2022-06-18 03:08 | CT_ITS ---
STUDY: CTA HEAD AND NECK WITH CONTRAST REASON FOR EXAM: Female, 77 years old. Cerebrovascular accident. RADIATION DOSAGE (If Supplied By Facility): CTDIvol = ( 33.29 ) mGy, DLP = ( 782.59 ) mGycm TECHNIQUE: CT angiography was performed with a multi-detector CT scanner. Data acquisition was obtained from the skull base through the vertex following intravenous administration of 100 mL Isovue-370. MIP images were reconstructed from the axial data set. Post-processing of the angiographic images was performed, with multiplanar reformation and 3D reconstruction. Individualized dose optimization techniques were used for this CT. COMPARISON: CT head June 18, 2022. CT head June 17, 2022. FINDINGS: Normal bilateral petrous carotid arteries. Normal right cavernous carotid artery with a normal supraclinoid bifurcation. Normal left cavernous carotid artery with a normal supraclinoid bifurcation. Normal right A1 segments of the anterior cerebral artery. Normal left A1 segments of the anterior cerebral artery. Normal intact anterior communicating artery (ACOM). Normal bilateral A2 segments of the anterior cerebral arteries. Normal right M1 and M2 segments of the middle cerebral arteries, with a normal M1 bifurcation. Normal left M1 and M2 segments of the middle cerebral arteries, with a normal M1 bifurcation. Normal right posterior communicating artery (PCOM). Normal left posterior communicating artery (PCOM). Normal bilateral vertebral arteries. Right vertebral artery is dominant. Normal basilar artery with a normal basilar bifurcation. The visualized bilateral superior cerebellar (SCA) arteries are normal. Normal bilateral P1, P2 and visualized P3 segments of the posterior cerebral arteries. There is no demonstrated aneurysm of the [place] of [place]. There is no demonstrated abnormality of the visualized brain. AORTIC ARCH: Normal visualized aortic arch. Normal origins of the brachiocephalic, left common carotid, and left subclavian arteries. RIGHT CAROTID ARTERIES: Normal right common carotid artery (CCA). Mild to moderate atherosclerotic calcification of the right common carotid bulb. Mild atherosclerotic calcification of the origin of the right internal carotid (ICA) artery without a hemodynamically significant stenosis. Normal visualized cervical portion of the right internal carotid artery. Normal origin of the right external carotid artery (ECA). LEFT CAROTID ARTERIES: Normal left common carotid artery (CCA). Mild atherosclerotic calcification of the left common carotid bulb. Atherosclerotic calcification of the origin of the left internal carotid (ICA) artery without a hemodynamically significant stenosis. Normal visualized cervical portion of the left internal carotid artery. Normal origin of the left external carotid artery (ECA). VERTEBRAL ARTERIES: Normal bilateral vertebral arteries. Degenerative changes of the cervical spine. Mild ethmoid and maxillary sinus mucosal thickening. Calcification right lobe of the thyroid gland. Subcentimeter low-attenuation nodules or cysts right lobe. CT/STROKE CTA Head AND Neck W/Con IMPRESSION: Normal CT of the head. Atherosclerotic calcification of the common carotid bulb and proximal internal carotid arteries bilaterally without a hemodynamically significant stenosis. Calcification and small cysts or nodules right lobe of the thyroid gland. These findings may not have clinical significance in this patient. Correlate with thyroid ultrasound as warranted. N.B. : The above Results were Read Back by Polo John MD to Dr. Kassi Fisher MD, and understanding confirmed on 06/18/2022 04:24:56 (ET). Electronically Signed: Polo John MD at 4:33 EDT Reading Location ID and State: [id number] / , Service support ,
[2022-06-18 03:24] LABS: International Normalized Ratio 1.8; Prothrombin Time (Protime)PT. 20.8 SECONDS (11.7-14.9)
[2022-06-18 04:17] LABS: BNP,B-Type NATRIURETIC PEPTIDE 136.6 pg/mL (0-100)
[2022-06-18 04:19] LABS: Ferritin 307 ng/mL (8-252); LDH 262 U/L (84-246); Magnesium 1.1 mg/dL (1.6-2.6); Troponin-I HS 14 pg/mL (3.0-54.0)
[2022-06-18 04:32] LABS: D-Dimer Quantitative (DVT/PE) 0.28 FEU/ug/m (0.27-0.49)
[2022-06-18 05:28] LABS: Procalcitonin < 0.01 ng/mL (0.00-0.09)
[2022-06-18] MEDS: 0.9% Normal Saline 1,000 ML 100 ML IV (05:29)
[2022-06-18] MEDS: Potassium Chloride Oral Tablet 20 MEQ 40 MEQ PO (05:31)
[2022-06-18] MEDS: Magnesium Sulfate 4gm/100mL 4 GM/100 ML IV.SOLN. IV (06:46)
[2022-06-18 07:07] LABS: Absolute Neutrophil Count 4.6 X10^3/uL (2.0-7.7); Basophil# 0.02 X10^3/uL; Basophil% 0.3 % (0-1); Eosinophil# 0.02 X10^3/uL; Eosinophils% 0.3 % (0-5); Hematocrit 35.6 % (37-47); Hemoglobin 12.5 g/dL (12.0-15.0); Lymphocyte % 14.6 % (19-41); Mean Corp Hgb Conc 35.1 g/dL (32-36); Mean Corpuscular Hgb 34.2 pg (27.0-32.0); Mean Corpuscular Volume 97.3 fL (81-99); Mean Platelet Vol. 9.5 fl (6.2-12.0); Monocyte# 0.62 X10^3/uL; Monocyte% 10.1 % (0-10); NRBC Flagged by Analyzer 0 % (0-5); Neutrophil # 4.57 X10^3/uL (2.7-7.7); Neutrophil % 74.4 % (47-70); Platelet Count 121 K/mm3 (150-450); RBC Distribution Width CV 13.2 % (11.6-14.6); RBC Distribution Width SD 47.1 fl (35.1-43.9); Red Blood Count 3.66 M/mm3 (4.2-5.4); White Blood Count 6.2 K/mm3 (4.4-11.0)
[2022-06-18 07:20] LABS: Bedside Glucose 109 mg/dL (74-106)
[2022-06-18] MEDS: Ipratropium/Albuterol Sulfate 3 ML AMPUL.NEB INHALATION ×2 (07:21→22:16)
[2022-06-18 07:44] LABS: ALB/GLOB Ratio 0.8 RATIO (0.9-2.4); AST(SGOT) 18 U/L (15-37); Alanine Aminotransfer ALT/SGPT 20 U/L (13-56); Albumin, Serum 2.9 g/dL (3.2-5.0); Alkaline Phosphatase 57 U/L (45-117); Anion Gap 6 (5-15); BUN 14 mg/dL (7-18); Calcium,Total 8.1 mg/dL (8.5-10.1); Chloride 102 mmol/L (98-107); Cholesterol 125 mg/dL (200); Creatinine, Serum 0.87 mg/dL (0.55-1.02); EST Glomerular Filtration Rate 67 mL/min (>60); Est Glom Filt Rate - Afr Amer 81 mL/min (>60); Estimated Creatinine Clearance 56.36 ml/min; Globulin 3.6 g/dL (2.2-4.2); Glucose 120 mg/dL (74-106); High Density Lipoprotein 58 mg/dL; Potassium 3.4 mmol/L (3.5-5.1); Protein, Total 6.5 g/dL (6.4-8.2); Sodium Level 134 mmol/L (136-145); Thyroid Stim Hormone (TSH) 0.41 uIU/mL (0.358-3.74); Triglycerides 101 mg/dL; Very Low Density Lipoprotein 20 mg/dL (5-40)
[2022-06-18 07:50] LABS: Phosphorus 3.4 mg/dL (2.5-4.9)
[2022-06-18 08:04] LABS: Prothrombin Time (Protime)PT. 22.1 SECONDS (11.7-14.9)
[2022-06-18] MEDS: Gabapentin 600 MG Tablet PO (09:04)
[2022-06-18] MEDS: Clopidogrel Bisulfate 75 MG Tablet PO (09:04)
[2022-06-18] MEDS: Acetaminophen 325 MG Tablet 650 MG PO ×2 (09:04→22:05)
[2022-06-18] MEDS: Glucerna Shake 120 ML LIQUID PO ×3 (09:05→16:33)
[2022-06-18 09:58] LABS: Hemoglobin A1c 6.1 % (3.8-5.6)
[2022-06-18 12:55] LABS: Bedside Glucose 161 mg/dL (74-106)
--- NOTE | 2022-06-18 13:02 | PN.HOSP_ITS ---
Hospitalist Note Mrs. Red is a 77-year-old white female who presented to the emergency department early this morning with confusion. She evidently was also having balance issues. She was found to be COVID-positive on 06/17/2022 with incidental testing. She had some mild nausea, emesis, loose stools and subjective chills. She did have a recent exposure to COVID with a niece who was positive and also recently attended a large graduation. She was offered PACs lipid prior to presentation but declined. Her T-max on presentation was 99.3 and she had lobo sient tachycardia in the emergency department which has since resolved. Her respiratory rates have been normal and she has been on room air with oxygen saturations at 94 to 100% during her hospital course. Her labs were overall unremarkable. She was admitted to the medical floor and initially NIH is were ordered however her NIH is have been 0 since admission so we have discontinued these. Her mental status is back to baseline and she is alert and oriented x3. I think if she does well with therapy and her p.o. intake remains good we may be able to discharge her home in the next 24 hours if she remains stable on room air. We will continue to monitor and reevaluate tomorrow for possible discharge.
[2022-06-18 17:01] LABS: Bedside Glucose 143 mg/dL (74-106)
[2022-06-18] MEDS: Gabapentin 300 MG Capsule PO (21:55)
[2022-06-18] MEDS: Atorvastatin Calcium 10 MG Tablet PO (21:55)
[2022-06-19 00:31] LABS: Bedside Glucose 135 mg/dL (74-106)
[2022-06-19 03:00] VITALS: PULSE 60
[2022-06-19 04:00] VITALS: BP 126/73; PULSE 80; RESP 16; TEMP 36.1; O2SAT 95
[2022-06-19 06:57] LABS: Absolute Lymphocyte Count 0.97 X10^3/uL (0.83-4.51); Absolute Neutrophil Count 2.5 X10^3/uL (2.0-7.7); Basophil# 0.05 X10^3/uL; Basophil% 1.2 % (0-1); Eosinophils% 2.4 % (0-5); Hematocrit 35.2 % (37-47); Lymphocyte # 0.97 X10^3/ul (0.83-4.51); Lymphocyte % 23.2 % (19-41); Mean Corp Hgb Conc 34.1 g/dL (32-36); Mean Corpuscular Hgb 33.4 pg (27.0-32.0); Mean Corpuscular Volume 98.1 fL (81-99); Mean Platelet Vol. 9.9 fl (6.2-12.0); Monocyte# 0.52 X10^3/uL; Monocyte% 12.4 % (0-10); NRBC Flagged by Analyzer 0 % (0-5); Neutrophil # 2.53 X10^3/uL (2.7-7.7); Neutrophil % 60.3 % (47-70); Platelet Count 109 K/mm3 (150-450); RBC Distribution Width CV 13.2 % (11.6-14.6); RBC Distribution Width SD 47.4 fl (35.1-43.9); Red Blood Count 3.59 M/mm3 (4.2-5.4); White Blood Count 4.2 K/mm3 (4.4-11.0)
[2022-06-19 07:00] VITALS: PULSE 60
[2022-06-19 07:05] LABS: Bedside Glucose 99 mg/dL (74-106)
[2022-06-19 07:19] LABS: Anion Gap 3 (5-15); BUN 25 mg/dL (7-18); BUN/Creat Ratio 27.5 RATIO (10-20); Calcium,Total 8.2 mg/dL (8.5-10.1); Chloride 106 mmol/L (98-107); Creatinine, Serum 0.91 mg/dL (0.55-1.02); EST Glomerular Filtration Rate 64 mL/min (>60); Est Glom Filt Rate - Afr Amer 78 mL/min (>60); Estimated Creatinine Clearance 53.88 ml/min; Glucose 103 mg/dL (74-106); Magnesium 2.1 mg/dL (1.6-2.6); Phosphorus 3.1 mg/dL (2.5-4.9); Potassium 4.4 mmol/L (3.5-5.1); Sodium Level 138 mmol/L (136-145)
[2022-06-19 07:35] VITALS: PULSE 60; RESP 16; O2SAT 90
[2022-06-19] MEDS: Ipratropium/Albuterol Sulfate 3 ML AMPUL.NEB INHALATION (07:35)
[2022-06-19 09:28] VITALS: BP 101/56; PULSE 62; RESP 17; TEMP 37.2; O2SAT 93; O2SAT 99
[2022-06-19] MEDS: Clopidogrel Bisulfate 75 MG Tablet PO (09:31)
[2022-06-19] MEDS: Glucerna Shake 120 ML LIQUID PO (09:31)
[2022-06-19] MEDS: Gabapentin 600 MG Tablet PO (09:32)
[2022-06-19 09:35] VITALS: O2SAT 93
--- NOTE | 2022-06-19 10:15 | DS.PCM_ITS ---
Providers Date of Admission: 06/18/22 Date of Discharge: 06/19/22 Primary Care Physician: Dr. Ro Reed MD Reason For Visit: COVID, ENCEPHALOPATHY, ? CVA Diagnosis Discharge Diagnosis (1) Acute confusion: Status: Acute Code(s): R41.0 - Disorientation, unspecified (2) COVID-19: Status: Acute Code(s): U07.1 - COVID-19 Medications at Discharge Home Medications warfarin 5 mg tablet 5 mg PO SUMOTUFRSA afib 11/18/18 atorvastatin 10 mg tablet 10 mg PO QHS cholesterol 12/11/19 gabapentin 300 mg capsule 600 mg PO DAILY Neuropathy 12/11/19 TENS unit electrodes #2 ea 07/11/20 oxycodone-acetaminophen 5 mg-325 mg tablet 1 tab PO DAILY PRN pain 12/07/20 albuterol sulfate 90 mcg/actuation aerosol inhaler 2 puff inhalation Q4H PRN shortness of breath or wheezing #8.5 grams 05/07/21 budesonide-formoterol HFA 160 mcg-4.5 mcg/actuation aerosol inhaler (Symbicort) 2 puff inhalation BID asthma #10.2 grams 10/08/21 cyclobenzaprine 10 mg tablet 5 - 10 mg PO BID PRN Spasms 06/17/22 gabapentin 300 mg capsule 300 mg PO QHS 06/17/22 magnesium oxide 400 mg PO DAILY 06/17/22 metformin 500 mg tablet,extended release 24 hr 1,000 mg PO BID DM 06/17/22 ondansetron 4 mg disintegrating tablet 4 mg PO Q8H PRN nausea and vomiting #15 tabs 06/17/22 warfarin 5 mg tablet 2.5 mg PO WETH 06/17/22 Hospital Course Operations None Procedures None Summary of Care Provided Minutes Spent on Discharge: 25 Hospital Course: Mrs. Red is a 77-year-old white female who presented to the emergency department early yesterday morning on 06/18/2022 with confusion. Her symptoms evidently started the day prior and she had associated balance issues. She had been diagnosed with COVID-19 infection on 06/17/2022 and had some mild nausea, emesis, intermittent loose stools and subjective chills. She was seen in the emergency department that evening and was able to be discharged home. She declined Paxlovid at that time but did not do well after discharge. She had not been vaccinated. ork-up in the ED included T-max 99.3, heart rate initially 70 however did increase up to 123 with most recent heart rate 60, BP initially 141/86 with most recent repeat 121/68, respiratory rate 15, oxygenation 94% to 100% on room air, CBC with WC 6.6, hemoglobin 13.3, platelet 127 with lymphopenia, CMP with sodium 135, potassium 3.4, BUN/creatinine 14/1.05, glucose 144 otherwise hepatic profile unremarkable, urinalysis with elevated specific gravity 1.020, protein 30, negative nitrite, occult blood 10, leukocyte Estrace 25, no marked urine RBC or WBC with only noted rare urine bacteria, blood culture x2 pending per ED, urine culture pending per ED, CT of the brain with no acute intracranial findings. CTA was performed and showed atherosclerotic calci fication in the carotid bulb and proximal internal carotid arteries bilaterally without any hemodynamic significant stenosis and calcification/small cysts or nodules in the right lobe of the thyroid gland. Her TSH was done and found to be at her baseline. Given her confusion she was admitted to the PCU and NIH is were followed. NIH is were consistently 0 and they were discontinued later that afternoon. Family noted yesterday afternoon how much better her mental status was and felt that she was at baseline. She was evaluated by physical therapy and Occupational Therapy and had no further therapy needs after discharge. She was reevaluated on the a.m. of 06/19/2022 and did well through the night and was therefore able to be discharged home. I did again offer Paxlovid, as she was still in her 5-day window from symptom onset, but she again declined. She was treated with hydration as well as she had some mild dehydration on presentation and her renal function resumed to her baseline prior to discharge. She was discharged home in stable condition on 06/19/2022. She was instructed to quarantine for 5 days from symptom onset then mask in public for 5 days following that timeframe. After total of 10 days she may resume normal activities without masking. We did advise her to follow-up with her primary care physician within the next 2 weeks for reevaluation a hospital follow-up. Discharge diagnoses: Acute COVID-19 infection Toxic/metabolic encephalopathy-resolved Ataxia-resolved Paroxysmal atrial fibrillation DM-2 Hypertension Hyperlipidemia RAMESH Secondary pulmonary hypertension Obesity Asthma Allergic rhinitis Physical Exam Const alert, oriented x3 and no apparent distress Constitutional Narrative: Obese older white female sitting up in bed watching television, appears well, on room air, nontoxic General Appearance: cooperative, comfortable, well kempt and well developed Orientation / Consciousness: awake Exam Limitations: no limitations Nutritional Appearance: obese HEENT normocephalic, head/scalp atraumatic and moist oral mucous membranes HEENT Narrative: Mild hearing loss, dentition is poor, Mallampati is 3, no thrush Neck supple Neck Narrative: Trachea midline, neck is short and thick Resp normal respiratory effort, no retractions, no use of accessory muscles and clear to auscultation bilaterally Auscultation: Negative for crackles, rales, rhonchi or wheezes Cardio regular rate, regular rhythm, S1 normal heart sound, S2 normal heart sound, no murmurs, no rub, no gallops, no clicks and no JVD GI normal to inspection, nondistended, normoactive bowel sounds, soft to palpation, non-tender and non-distended Extremity no clubbing, cyanosis or edema Extremity Narrative: 2+ pedal pulses Neuro oriented x3, CN's II-XII intact bilaterally, moves all extremities and no focal motor deficits Neuro Narrative: Very mild strength deficits proximal greater than distal Sensorium / Orientation: awake, alert, oriented to person, oriented to place and oriented to time Speech: speech normal Psych affect normal Psych Narrative: Very pleasant and appropriate interaction Weight / BMI Weight Weight: 89.4 kg Body Mass Index (BMI) 29.5 ABG / Lab / Microbiology Data Result Diagrams: 06/19/22 06:20 06/19/22 06:20 Laboratory: Laboratory Results - last 24 hr 06/18/22 12:27: POC Glucose 161 H 06/18/22 16:26: POC Glucose 143 H 06/18/22 21:51: POC Glucose 135 H 06/19/22 06:20: WBC 4.2 L, RBC 3.59 L, Hgb 12.0, Hct 35.2 L, MCV 98.1, MCH 33.4 H, MCHC 34.1, RDW Std Deviation 47.4 H, RDW Coeff of Jason 13.2, Plt Count 109 L, MPV 9.9, Immature Gran % (Auto) 0.500, Neut % (Auto) 60.3, Lymph % (Auto) 23.2, Waller % (Auto) 12.4 H, Eos % (Auto) 2.4, Baso % (Auto) 1.2 H, Absolute Neuts (auto) 2.5, Absolute Lymphs (auto) 0.97, Nucleated RBC % 0 06/19/22 06:20: Sodium 138, Potassium 4.4, Chloride 106, Carbon Dioxide 29.0, Anion Gap 3 L, BUN 25 H, Creatinine 0.91, Estim Creat Clear Calc 53.88, Est GFR (MDRD) Af Amer 78, Est GFR (MDRD) Non-Af 64, BUN/Creatinine Ratio 27.5 H, Glucose 103, Calcium 8.2 L, Phosphorus 3.1, Magnesium 2.1 06/19/22 06:44: POC Glucose 99 Microbiology: Microbiology 06/18/22 09:50 Mucosa - Nose Respiratory Panel (PCR) - Final 06/18/22 02:10 Urine Catheter - Catheter Legionella Antigen - Final 06/18/22 02:10 Urine Catheter - Catheter Streptococcus pneumoniae Antigen (M - Final Meaningful Use Info Meaningful Use Diagnoses (Choose all that apply): None applicable Discharge Plan Admission Admit Date/Time: 06/18/22 03:02 Primary Reason for Your Visit: Confusion/balance issues Attending Provider: Alea Martinez Primary Care Provider: Ro Reed Consulting Providers: Kassi Fisher Instructions Additional Instructions / Restrictions: 1. Please quarantine for 5 days since symptom onset 2. Please wear a mask in public for 5 days after quarantine Discharge Orders/Prescriptions Prescriptions: Continued oxycodone-acetaminophen 5-325 mg tablet 1 tab PO DAILY PRN (Reason: pain) (DME) TENS unit electrodes Pad See Rx Instructions .ROUTE .MEDSUPPLY Qty: 2 Rx Instructions: As directed Symbicort 160-4.5 mcg/actuation HFA aerosol inhaler 2 puff INHALATION BID Qty: 10.2 11RF warfarin 5 MG tablet 5 mg PO SUMOTUFRSA Protocol: Dose Management Condition: Thursday Dose/Route: 5 mg Instruction: 1 x 5 mg tablet Condition: Thursday Dose/Route: 5 mg Instruction: 1 x 5 mg tablet Condition: Thursday Dose/Route: 5 mg Instruction: 1 x 5 mg tablet Condition: Thursday Dose/Route: 2.5 mg Instruction: 0.5 x 5 mg tablets Condition: Dose/Route: 2.5 mg Instruction: 0.5 x 5 mg tablets Condition: Thursday Dose/Route: 5 mg Instruction: 1 x 5 mg tablet Condition: Thursday Dose/Route: 5 mg Instruction: 1 x 5 mg tablet Protocol Text: Adjustment Start Date: Thursday04/02/22 INR Value: 2.2 INR Date: 04/02/22 Recheck Date: 04/23/22 Rx Instructions: 5 mg. , Thu gabapentin 300 MG capsule 600 mg PO DAILY atorvastatin 10 MG tablet 10 mg PO QHS gabapentin 300 mg capsule 300 mg PO QHS Label Comments: Take 2 capsules by mouth daily at bedtime AND 1 capsule every morning. cyclobenzaprine 10 mg Tablet 5 - 10 mg PO BID PRN (Reason: Spasms) warfarin 5 mg tablet 2.5 mg PO WETH metformin 500 mg tablet extended release 24 hr 1,000 mg PO BID Label Comments: Take 2 tablets by mouth twice daily with meals. magnesium oxide 400 mg magnesium Tablet 400 mg PO DAILY ondansetron 4 mg tablet,disintegrating 4 mg PO Q8H PRN (Reason: nausea and vomiting) Qty: 15 0RF albuterol sulfate 90 mcg/actuation HFA aerosol inhaler 2 puff INHALATION Q4H PRN (Reason: shortness of breath or wheezing) Qty: 8.5 6RF Rx Instructions: administer with spacer Referrals / Follow Up: Ro Reed MD [Primary Care Provider] - Within 2 Weeks Disposition Disposition (needs filled in before D/C Order can be placed): Home, Self Care Charges/Coding Visit Charges Inpatient E&M: 37962 Disch Hosp
--- NOTE | 2022-06-19 10:35 | CASEMGMT ---
RN MAVERICK NOTE: Intro role of CM to patient and [employer] form explained re: Observation status for treatment of altered mental status. Explained hospitalization will be paid per her insurance policy for Outpatient billing and condition will continue to be evaluated for Inpt necessity. Also let pt know that [facility] sends paper in the billing packet with their phone number if questions arise. Discussed Pharmacy section of [employer] form and self administered medication guideline. Pt verbalizes understanding and does not have further questions. Form signed, copy made and given to pt and original placed in chart. Grabiel ALMEIDA RN CM
--- NOTE | 2022-06-19 11:08 | CASEMGMT ---
Therapy is recommending OP therapy for pt at discharge but pt is also COVID + currently. Pt would like script for [facility] to take home, in case she still needs therapy once out of quarantine. Pt provided script. Ben CHU CM
--- NOTE | 2022-06-19 11:25 | PHA.DC.MR ---
Pharmacy Service has performed discharge medication reconciliation for this patient. Patient had no new medications at time of discharge medication review. Medications reviewed are from previously reported home medications. Home Medications warfarin 5 mg tablet 5 mg PO SUMOTUFRSA blood thinner 11/18/18 atorvastatin 10 mg tablet 10 mg PO QHS cholesterol 12/11/19 gabapentin 300 mg capsule 600 mg PO DAILY Neuropathy 12/11/19 TENS unit electrodes #2 ea 07/11/20 oxycodone-acetaminophen 5 mg-325 mg tablet 1 tab PO DAILY PRN pain 12/07/20 albuterol sulfate 90 mcg/actuation aerosol inhaler 2 puff inhalation Q4H PRN shortness of breath or wheezing #8.5 grams 05/07/21 budesonide-formoterol HFA 160 mcg-4.5 mcg/actuation aerosol inhaler (Symbicort) 2 puff inhalation BID asthma #10.2 grams 10/08/21 cyclobenzaprine 10 mg tablet 5 - 10 mg PO BID PRN Spasms 06/17/22 gabapentin 300 mg capsule 300 mg PO QHS nerve pain 06/17/22 magnesium oxide 400 mg PO DAILY supplement 06/17/22 metformin 500 mg tablet,extended release 24 hr 1,000 mg PO BID DM 06/17/22 ondansetron 4 mg disintegrating tablet 4 mg PO Q8H PRN nausea and vomiting #15 tabs 06/17/22 warfarin 5 mg tablet 2.5 mg PO WETH blood thinner 06/17/22 The patient's discharge medication list was reviewed for discrepancies and discrepancies were resolved.
[2022-06-19 12:17] VITALS: BMI 29.5
== END 2022-06-19 10:18 | disposition home or self-care (01) ==
LOC: ED 06-18 02:51 → PCU 06-18 03:40
PROVIDERS: Admitting Provider Family Medicine; Emergency Provider Emergency Medicine; PCP Internal Medicine; Visit Provider Internal Medicine
DX: U07.1 COVID-19 (principal); I27.29 Other secondary pulmonary hypertension; E11.40 Type 2 diabetes mellitus with diabetic neuropathy, unspecified; I48.0 Paroxysmal atrial fibrillation; R41.0 Disorientation, unspecified; I65.23 Occlusion and stenosis of bilateral carotid arteries; Z79.84 Long term (current) use of oral hypoglycemic drugs; E66.9 Obesity, unspecified; Z79.51 Long term (current) use of inhaled steroids; Z79.01 Long term (current) use of anticoagulants; I10 Essential (primary) hypertension; G47.33 Obstructive sleep apnea (adult) (pediatric); R27.0 Ataxia, unspecified; E86.0 Dehydration; E78.5 Hyperlipidemia, unspecified; J45.909 Unspecified asthma, uncomplicated; Z79.899 Other long term (current) drug therapy; G92.8 Other toxic encephalopathy; Z95.0 Presence of cardiac pacemaker; Z68.30 Body mass index [BMI] 30.0-30.9, adult; E87.6 Hypokalemia
CPT/HCPCS: 36415; 70450; 70496; 70498; 80048; 80053; 80061; 81001; 82728; 82962; 83036; 83615; 83735; 83880; 84100; 84145; 84443; 84484; 85025; 85379; 85610; 86140; 87040; 87086; 87088; 87449; 87633; 94640; 94762; 96360; 96361; 97161; 97166; 97802; 99218; 99285; J7030; Q9967; A4216; G0378

== ENCOUNTER 2022-07-31 08:56 | Emergency (ER) | payer MEDICARE, SELFPAY ==
[2022-07-31 08:57] VITALS: BP 189/85; PULSE 64; RESP 20; TEMP 36.2; O2SAT 100; BMI 29.7
--- NOTE | 2022-07-31 09:37 | RAD_ITS ---
STUDY: X-RAY CHEST REASON FOR EXAM: Female, 77 years old. Increasing shortness of breath. History of asthma. TECHNIQUE: Single AP portable view of the chest. COMPARISON: Comparison is made with prior examination 06/16/2022. FINDINGS: Hyperinflation. Stable mild increased linear markings at the left lung base suggestive of scarring. There is no demonstrated pleural abnormality. Normal size heart. A left-sided dual-chamber pacemaker is seen. Normal mediastinum and mahendra. Normal visualized pulmonary arteries. There is atherosclerotic tortuosity of the aortic arch and descending thoracic aorta. There are diffuse degenerative changes of the visualized thoracic spine. Normal visualized ribs, clavicles, and shoulders. There is no demonstrated abnormality of the visualized soft tissue structures of the upper abdomen. RAD/Chest 1 View (Portable) IMPRESSION: Mild increased markings at the left lung base suggests some mild scarring. Electronically Signed: Chance Pearl MD at 10:02 EDT ,
[2022-07-31 09:38] VITALS: BP 189/85; PULSE 64; RESP 20; TEMP 36.2; O2SAT 100
[2022-07-31 09:53] LABS: Absolute Lymphocyte Count 1.66 X10^3/uL (0.83-4.51); Absolute Neutrophil Count 3.5 X10^3/uL (2.0-7.7); Basophil# 0.05 X10^3/uL; Basophil% 0.9 % (0-1); Eosinophil# 0.22 X10^3/uL; Eosinophils% 3.7 % (0-5); Hematocrit 44.2 % (37-47); Hemoglobin 14.4 g/dL (12.0-15.0); Lymphocyte # 1.66 X10^3/ul (0.83-4.51); Lymphocyte % 28.3 % (19-41); Mean Corp Hgb Conc 32.6 g/dL (32-36); Mean Corpuscular Hgb 32.3 pg (27.0-32.0); Mean Corpuscular Volume 99.1 fL (81-99); Mean Platelet Vol. 9.9 fl (6.2-12.0); Monocyte# 0.42 X10^3/uL; Monocyte% 7.2 % (0-10); NRBC Flagged by Analyzer 0 % (0-5); Neutrophil % 59.6 % (47-70); Platelet Count 152 K/mm3 (150-450); RBC Distribution Width CV 12.6 % (11.6-14.6); RBC Distribution Width SD 45.9 fl (35.1-43.9); Red Blood Count 4.46 M/mm3 (4.2-5.4); White Blood Count 5.9 K/mm3 (4.4-11.0)
[2022-07-31 10:06] LABS: Anion Gap 7 (5-15); BUN 14 mg/dL (7-18); BUN/Creat Ratio 13.9 RATIO (10-20); Calcium,Total 9.9 mg/dL (8.5-10.1); Chloride 106 mmol/L (98-107); Creatinine, Serum 1.01 mg/dL (0.55-1.02); EST Glomerular Filtration Rate 57 mL/min (>60); Est Glom Filt Rate - Afr Amer 69 mL/min (>60); Estimated Creatinine Clearance 48.55 ml/min; Glucose 144 mg/dL (74-106); Sodium Level 140 mmol/L (136-145)
[2022-07-31 10:35] LABS: Red Blood Cells-Urine 0 SEEN /hpf (0-5); Squamous Epithelial Cells - UA 0 SEEN /hpf (5-10)
[2022-07-31 10:44] LABS: Color, Urine Yellow (Yellow); Glucose, Dipstick Normal (Normal); Ketone-Dipstick Negative (Negative); Leukocyte Esterase-Dipstick 500 /ul (Negative); Nitrite-Dipstick Negative (Negative); Occult Blood-Urine Negative /ul (Negative); Protein-Dipstick Negative (Negative); Specific Gravity, Urine 1.015 (1.002-1.030); Urine Bilirubin Dipstick Negative (Negative); Urine Clarity Sl. Cloudy (Clear); Urine Urobilinogen Normal (Normal)
--- NOTE | 2022-07-31 10:44 | ED.VIS.DYS ---
HPI History of Present Illness Chief Complaint: Shortness of Breath Narrative Narrative: 77-year-old female presenting with shortness of breath. She states that this morning she had some right-sided rib pain when she woke up. She reports that she has had this for about a month in the right side of her ribs. She states typically when she gets up out of bed she has this rib pain until she gets up moving it hurts. She relates some shortness of breath to this. Today she had chest pressure in the center of her chest which lasted about an hour. She tried to walk outside the back door in the front door and states that she could not catch her breath. She has a history of COPD and did not use her inhalers. Currently in the room she states she is not short of breath and not having any pain. She states she does have a pacemaker with a history of a flutter and on Coumadin. She denies any cardiac stents. 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 Contact dermatitis and other eczema COVID-19 Cystitis DDD (degenerative disc disease) Diabetes mellitus Encephalopathy acute Essential hypertension Hx of bladder infections Hyperlipidemia Hypersomnia prison (current) use of anticoagulants Obesity RAMESH (obstructive sleep apnea) Other secondary pulmonary hypertension Palpitations Pneumonia Shoulder dislocation Home Medications warfarin 5 mg tablet 5 mg PO SUMOTUFRSA blood thinner 11/18/18 [History Last Taken 06/15/22] atorvastatin 10 mg tablet 10 mg PO QHS cholesterol 12/11/19 [History Last Taken 06/15/22] gabapentin 300 mg capsule 600 mg PO DAILY Neuropathy 12/11/19 [History Last Taken 06/15/22] TENS unit electrodes #2 ea 07/11/20 [History Last Taken Unknown] oxycodone-acetaminophen 5 mg-325 mg tablet 1 tab PO DAILY PRN pain 12/07/20 [History Last Taken 06/15/22] albuterol sulfate 90 mcg/actuation aerosol inhaler 2 puff inhalation Q4H PRN shortness of breath or wheezing #8.5 grams 05/07/21 [Rx Last Taken 06/17/22] budesonide-formoterol HFA 160 mcg-4.5 mcg/actuation aerosol inhaler (Symbicort) 2 puff inhalation BID asthma #10.2 grams 10/08/21 [Rx Last Taken 06/16/22] cyclobenzaprine 10 mg tablet 5 - 10 mg PO BID PRN Spasms 06/17/22 [History Last Taken 06/16/22] gabapentin 300 mg capsule 300 mg PO QHS nerve pain 06/17/22 [History Last Taken 06/16/22] magnesium oxide 400 mg PO DAILY supplement 06/17/22 [History Last Taken 06/16/22] metformin 500 mg tablet,extended release 24 hr 1,000 mg PO BID DM 06/17/22 [History Last Taken 06/16/22] ondansetron 4 mg disintegrating tablet 4 mg PO Q8H PRN nausea and vomiting #15 tabs 06/17/22 [Rx Last Taken Unknown] warfarin 5 mg tablet 2.5 mg PO WETH blood thinner 06/17/22 [History Last Taken 06/12/22] Allergy/AdvReac Type Severity Reaction Status Date / Time amoxicillin Allergy Severe Hives Verified 07/31/22 08:56 aspirin Allergy Severe Hives, SOB Verified 07/31/22 08:56 Sulfa (Sulfonamide Allergy Severe Hives Verified 07/31/22 08:56 Antibiotics) Family History Mother Diabetes Father CAD (coronary artery disease) Sister Lung cancer Son Kidney stone Surgical History History of appendectomy History of kidney surgery Presence of permanent cardiac pacemaker (04/01/19) Social History household members: none housing: house number of children: 3 current occupational status: retired Smoking Status: Never smoker alcohol intake: never substance use type: does not use what type of physical activity do you participate in: none do you feel safe at home: Yes ROS ROS ED Constitutional Constitutional ED: Denies chills or fever(s) Eyes Eyes: Denies change in vision ENT ENT ED: Denies rhinorrhea or sore throat Cardiovascular Cardiovascular: Reports chest pain and palpitations Respiratory/Chest Respiratory/Chest: Reports dyspnea and dyspnea on exertion Gastrointestinal Gastrointestinal: Denies abdominal pain Genitourinary Genitourinary ED: Denies dysuria or hematuria Musculoskeletal Musculoskeletal: Denies arthralgias or back pain Integumentary Denies abscess Neurologic Neurologic: Denies headache(s) or paresthesias Psychiatric Psychiatric: Denies anxiety or depression EXAM Physical Exam Const Vital Signs: 07/31/22 08:57 07/31/22 09:38 07/31/22 11:27 Temperature 97.2 F L 97.2 F L 97.9 F Temperature Source Temporal Temporal Oral Pulse Rate 64 64 86 Respiratory Rate 20 H 20 H 17 Respiratory Effort Respiratory Pattern Blood Pressure 189/85 H 189/85 H 150/94 H Blood Pressure Mean 119 119 112 Pulse Ox 100 100 98 Oxygen Delivery Method Room Air Room Air Room Air 07/31/22 11:27 Temperature Temperature Source Pulse Rate Respiratory Rate Respiratory Effort Short of Breath Respiratory Pattern Tachypnea Blood Pressure Blood Pressure Mean Pulse Ox Oxygen Delivery Method Room Air Positive well nourished General Appearance ED: NAD; Negative for pallor HEENT Reports moist mucous membranes atraumatic Eyes PERRL and EOMs intact bilaterally General Eye ED: Negative for pale conjunctiva or scleral icterus Neck no lymphadenopathy Resp normal respiratory effort and clear to auscultation bilaterally Auscultation: Negative for rales, rhonchi or wheezes Cardio regular rate and regular rhythm GI non-tender Extremity normal to inspection General Extremety ED: Negative for edema or tenderness General Extremity: Negative for edema Neuro oriented x3 and CN's II-XII intact bilaterally Sensorium / Orientation: alert Speech: speech normal Motor Exam: strength 5/5 throughout Psych mental status grossly normal Skin no wounds and skin turgor normal General Skin Exam: Negative for jaundice or pallor MDM MDM MDM Narrative Medical decision making narrative: 37-year-old female presenting with chest pain she had it for about an hour this morning. She does report that she has right-sided rib pain almost every day when she gets up in the morning as well. I obtained an EKG and on my interpretation this shows a ventricular paced rhythm at 67 bpm without sign of ST elevation or depression. Chest x-ray on my interpretation shows no acute cardiopulmonary process and the radiologist read. CBC and BMP are within normal limits. High-sensitivity troponin initially 11 and delta troponin is 12. Patient anticoagulated on Coumadin and is therapeutic at 3 and I have low suspicion for PE. Patient has been pain-free her whole time here. She states she feels well. I feel at this point she is stable for discharge home and outpatient follow-up. She is amenable to this. Return precautions were discussed. Impression: 1. Chest pain 2. Dyspnea Lab Data Attestation: I reviewed the patient's lab results. Labs: Laboratory Results - last 24 hr 07/31/22 07/31/22 07/31/22 09:44 09:44 09:44 WBC 5.9 RBC 4.46 Hgb 14.4 Hct 44.2 MCV 99.1 H MCH 32.3 H MCHC 32.6 RDW Std Deviation 45.9 H RDW Coeff of Jason 12.6 Plt Count 152 MPV 9.9 Immature Gran % (Auto) 0.300 Neut % (Auto) 59.6 Lymph % (Auto) 28.3 [place] % (Auto) 7.2 Eos % (Auto) 3.7 Baso % (Auto) 0.9 Absolute Neuts (auto) 3.5 Absolute Lymphs (auto) 1.66 Nucleated RBC % 0 PT INR Sodium 140 Potassium 4.0 Chloride 106 Carbon Dioxide 27.0 Anion Gap 7 BUN 14 Creatinine 1.01 Estim Creat Clear Calc 48.55 Est GFR (MDRD) Af Amer 69 Est GFR (MDRD) Non-Af 57 L BUN/Creatinine Ratio 13.9 Glucose 144 H Calcium 9.9 Troponin I High Sens 11 B-Natriuretic Peptide Urine Color Urine Clarity Urine pH Ur Specific [place] Urine Protein Urine Glucose (UA) Urine Ketones Urine Occult Blood Urine Nitrite Urine Bilirubin Urine Urobilinogen Ur Leukocyte Esterase Urine RBC Urine WBC Ur Squamous Epith Cells Ur Transition Epith Cell Urine Bacteria Urine Mucus 07/31/22 07/31/22 07/31/22 09:44 09:44 10:29 WBC RBC Hgb Hct MCV MCH MCHC RDW Std Deviation RDW Coeff of Jason Plt Count MPV Immature Gran % (Auto) Neut % (Auto) Lymph % (Auto) [place] % (Auto) Eos % (Auto) Baso % (Auto) Absolute Neuts (auto) Absolute Lymphs (auto) Nucleated RBC % PT 30.4 H INR 3.0 Sodium Potassium Chloride Carbon Dioxide Anion Gap BUN Creatinine Estim Creat Clear Calc Est GFR (MDRD) Af Amer Est GFR (MDRD) Non-Af BUN/Creatinine Ratio Glucose Calcium Troponin I High Sens B-Natriuretic Peptide 104.2 H Urine Color Yellow Urine Clarity Sl. Cloudy Urine pH 5.0 Ur Specific [place] 1.015 Urine Protein Negative Urine Glucose (UA) Normal Urine Ketones Negative Urine Occult Blood Negative Urine Nitrite Negative Urine Bilirubin Negative Urine Urobilinogen Normal Ur Leukocyte Esterase 500 H Urine RBC 0 SEEN Urine WBC 0-5 SEEN Ur Squamous Epith Cells 0 SEEN Ur Transition Epith Cell 0-5 SEEN Urine Bacteria RARE Urine Mucus RARE 07/31/22 12:10 WBC RBC Hgb Hct MCV MCH MCHC RDW Std Deviation RDW Coeff of Jason Plt Count MPV Immature Gran % (Auto) Neut % (Auto) Lymph % (Auto) [place] % (Auto) Eos % (Auto) Baso % (Auto) Absolute Neuts (auto) Absolute Lymphs (auto) Nucleated RBC % PT INR Sodium Potassium Chloride Carbon Dioxide Anion Gap BUN Creatinine Estim Creat Clear Calc Est GFR (MDRD) Af Amer Est GFR (MDRD) Non-Af BUN/Creatinine Ratio Glucose Calcium Troponin I High Sens 12 B-Natriuretic Peptide Urine Color Urine Clarity Urine pH Ur Specific [place] Urine Protein Urine Glucose (UA) Urine Ketones Urine Occult Blood Urine Nitrite Urine Bilirubin Urine Urobilinogen Ur Leukocyte Esterase Urine RBC Urine WBC Ur Squamous Epith Cells Ur Transition Epith Cell Urine Bacteria Urine Mucus Radiography Diagnostic Testing: Clinical Impression(s) from Imaging Studies Chest X-Ray 07/31/22 09:37 IMPRESSION: Mild increased markings at the left lung base suggests some mild scarring. Electronically Signed: Chance Pearl MD at 10:02 EDT Reading Location ID and State: [address] [place] [address] , Service support , Discharge Plan Triage Chief Complaint: Shortness of Breath ED Provider: Juan Carlos Torre Dx/Rx/DC Orders Instructions: ED Chest Pain, Noncardiac, ED Dyspnea Prescriptions: No Action oxycodone-acetaminophen 5-325 mg tablet 1 tab PO DAILY PRN (Reason: pain) (DME) TENS unit electrodes Pad See Rx Instructions .ROUTE .MEDSUPPLY Qty: 2 Rx Instructions: As directed Symbicort 160-4.5 mcg/actuation HFA aerosol inhaler 2 puff INHALATION BID Qty: 10.2 11RF warfarin 5 MG tablet 5 mg PO SUMOTUFRSA Protocol: Dose Management Condition: Thursday Dose/Route: 5 mg Instruction: 1 x 5 mg tablet Condition: Thursday Dose/Route: 5 mg Instruction: 1 x 5 mg tablet Condition: Thursday Dose/Route: 5 mg Instruction: 1 x 5 mg tablet Condition: Thursday Dose/Route: 2.5 mg Instruction: 0.5 x 5 mg tablets Condition: Dose/Route: 2.5 mg Instruction: 0.5 x 5 mg tablets Condition: Thursday Dose/Route: 5 mg Instruction: 1 x 5 mg tablet Condition: Thursday Dose/Route: 5 mg Instruction: 1 x 5 mg tablet Protocol Text: Adjustment Start Date: Thursday04/02/22 INR Value: 2.2 INR Date: 04/02/22 Recheck Date: 04/23/22 Rx Instructions: 5 mg. , Thu gabapentin 300 MG capsule 600 mg PO DAILY atorvastatin 10 MG tablet 10 mg PO QHS gabapentin 300 mg capsule 300 mg PO QHS Label Comments: Take 2 capsules by mouth daily at bedtime AND 1 capsule every morning. cyclobenzaprine 10 mg Tablet 5 - 10 mg PO BID PRN (Reason: Spasms) warfarin 5 mg tablet 2.5 mg PO WETH metformin 500 mg tablet extended release 24 hr 1,000 mg PO BID Label Comments: Take 2 tablets by mouth twice daily with meals. magnesium oxide 400 mg magnesium Tablet 400 mg PO DAILY ondansetron 4 mg tablet,disintegrating 4 mg PO Q8H PRN (Reason: nausea and vomiting) Qty: 15 0RF albuterol sulfate 90 mcg/actuation HFA aerosol inhaler 2 puff INHALATION Q4H PRN (Reason: shortness of breath or wheezing) Qty: 8.5 6RF Rx Instructions: administer with spacer Primary Care Provider: Ro Reed Referrals: Ro Reed MD [Primary Care Provider] - Disposition Disposition: Home, Self Care
[2022-07-31 10:57] LABS: Troponin-I HS 11 pg/mL (3.0-54.0)
[2022-07-31 10:58] LABS: BNP,B-Type NATRIURETIC PEPTIDE 104.2 pg/mL (0-100)
[2022-07-31 10:59] LABS: Transitional Epithelial - Ur 0-5 SEEN /hpf (0-5); White Blood Cells 0-5 SEEN /hpf (0-5)
[2022-07-31 11:00] LABS: Bacteria RARE /hpf (None Seen); Mucous, Urine RARE /hpf (<or=2+)
[2022-07-31 11:20] LABS: Prothrombin Time (Protime)PT. 30.4 SECONDS (11.7-14.9)
[2022-07-31 11:27] VITALS: BP 150/94; PULSE 86; RESP 17; TEMP 36.6; O2SAT 98
[2022-07-31 12:36] LABS: Troponin-I HS 12 pg/mL (3.0-54.0)
[2022-07-31 13:14] VITALS: BP 120/86; PULSE 71; RESP 15; O2SAT 98
== END 2022-07-31 13:16 | disposition home or self-care (01) ==
PROVIDERS: Emergency Provider Student in an Organized Health Care Education/Training Program; PCP Internal Medicine; Visit Provider Student in an Organized Health Care Education/Training Program
DX: R07.9 Chest pain, unspecified (principal); R06.00 Dyspnea, unspecified; G47.33 Obstructive sleep apnea (adult) (pediatric); Z86.16 Personal history of COVID-19; Z95.0 Presence of cardiac pacemaker
CPT/HCPCS: 71045; 80048; 81001; 83880; 84484; 85025; 85610; 93005; 99284; A4216

== ENCOUNTER 2022-09-02 08:40 | Outpatient (RCR) | payer MEDICARE, SELFPAY ==
[2022-04-25 07:03] VITALS: BMI 29.2
[2022-09-02 09:48] LABS: International Normalized Ratio 2.7; Prothrombin Time (Protime)PT. 28.6 SECONDS (11.7-14.9)
== END 2022-09-24 18:00 | disposition home or self-care (01) ==
LOC: LAB 08:40
PROVIDERS: Family Provider Internal Medicine; PCP Internal Medicine; Referring Provider Internal Medicine Cardiovascular Disease; Visit Provider Internal Medicine Cardiovascular Disease
DX: I48.91 Unspecified atrial fibrillation (principal); I48.92 Unspecified atrial flutter; Z79.02 Long term (current) use of antithrombotics/antiplatelets
CPT/HCPCS: 36415; 85610

== ENCOUNTER 2022-09-25 11:34 | Outpatient (RCR) | payer MEDICARE, SELFPAY ==
[2022-09-24 23:13] VITALS: BMI 29.2
[2022-09-25 12:25] LABS: International Normalized Ratio 2.6; Prothrombin Time (Protime)PT. 27.3 SECONDS (11.7-14.9)
== END 2022-09-25 18:00 | disposition home or self-care (01) ==
LOC: LAB 11:34
PROVIDERS: Family Provider Internal Medicine; PCP Internal Medicine; Referring Provider Internal Medicine Cardiovascular Disease; Visit Provider Internal Medicine Cardiovascular Disease
DX: I48.91 Unspecified atrial fibrillation (principal); I48.92 Unspecified atrial flutter; Z79.01 Long term (current) use of anticoagulants; I27.29 Other secondary pulmonary hypertension
CPT/HCPCS: 36415; 85610

== ENCOUNTER 2022-12-02 09:54 | Outpatient (RCR) | payer MEDICARE, SELFPAY ==
[2022-10-26 03:54] VITALS: BMI 29.2
[2022-12-02 11:31] LABS: International Normalized Ratio 2.3; Prothrombin Time (Protime)PT. 24.9 SECONDS (11.7-14.9)
== END 2022-12-02 18:00 | disposition home or self-care (01) ==
LOC: LAB 09:54
PROVIDERS: Family Provider Internal Medicine; PCP Internal Medicine; Referring Provider Internal Medicine Cardiovascular Disease; Visit Provider Internal Medicine Cardiovascular Disease
DX: I48.91 Unspecified atrial fibrillation (principal); I48.92 Unspecified atrial flutter; Z79.01 Long term (current) use of anticoagulants
CPT/HCPCS: 36415; 85610

== ENCOUNTER 2023-03-17 18:47 | Emergency (ER) | payer MEDICARE, SELFPAY ==
[2023-03-17 18:47] VITALS: BP 149/72; PULSE 64; RESP 18; TEMP 36.2; O2SAT 95
[2023-03-17 19:51] VITALS: PULSE 61; RESP 18; O2SAT 96
[2023-03-17 19:52] VITALS: BMI 31.6
--- NOTE | 2023-03-17 20:39 | RAD_ITS ---
INDICATION: Dyspnea EXAMINATION/TECHNIQUE: X-RAY - XR Chest 1 View COMPARISON: 07/31/2022 FINDINGS: LINES/DEVICES: Dual lead cardiac device redemonstrated. LUNGS: No consolidation, edema or effusion. No pneumothorax. MEDIASTINUM AND CARDIOVASCULAR STRUCTURES: Cardiac silhouette not enlarged. Central airways and mediastinal contour are unremarkable. RAD/Chest 1 View (Portable) IMPRESSION: No radiographic evidence of acute cardiopulmonary disease. Electronically Signed: Sharan Lewis MD at 21:06 EDT ,
--- NOTE | 2023-03-17 20:39 | EX.ED.DYSGE1 ---
HPI History of Present Illness Chief Complaint: General Illness Detail of Chief Complaint: Fever, cough, urinary frequency Informant: patient and family Narrative Narrative: Patient presents to the emergency department after being at urgent care today with complaint of fever and cough and urinary frequency. Daughter states that at times she, talks out of her head and she gets this way typically when she has a UTI. Patient denies dysuria but states she is urinating quite frequently. She had decreased appetite. Cough started yesterday. She has had some exertional dyspnea. She denies chest pain. Apparently at urgent care she had a temp of 100.4. 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 Contact dermatitis and other eczema COVID-19 Cystitis DDD (degenerative disc disease) Diabetes mellitus Encephalopathy acute Essential hypertension Hx of bladder infections Hyperlipidemia Hypersomnia snf (current) use of anticoagulants Obesity RAMESH (obstructive sleep apnea) Other secondary pulmonary hypertension Palpitations Pneumonia Shoulder dislocation Home Medications warfarin 5 mg tablet 5 mg PO SUMOTUFRSA blood thinner 11/18/18 [History Last Taken 06/15/22] atorvastatin 10 mg tablet 10 mg PO QHS cholesterol 12/11/19 [History Last Taken 06/15/22] TENS unit electrodes #2 ea 07/11/20 [History Last Taken Unknown] oxycodone-acetaminophen 5 mg-325 mg tablet 1 tab PO DAILY PRN pain 12/07/20 [History Last Taken 06/15/22] cyclobenzaprine 10 mg tablet 5 - 10 mg PO BID PRN Spasms 06/17/22 [History Last Taken 06/16/22] magnesium oxide 400 mg PO DAILY supplement 06/17/22 [History Last Taken 06/16/22] metformin 500 mg tablet,extended release 24 hr 1,000 mg PO BID DM 06/17/22 [History Last Taken 06/16/22] warfarin 5 mg tablet 2.5 mg PO WETH blood thinner 06/17/22 [History Last Taken 06/12/22] gabapentin 300 mg capsule 300 mg PO .COMPLEX nerve pain 08/04/22 [History Last Taken Unknown] gabapentin 300 mg capsule 600 mg PO QHS Neuropathy 08/04/22 [History Last Taken Unknown] albuterol sulfate 90 mcg/actuation aerosol inhaler 2 puff inhalation Q4H PRN shortness of breath or wheezing #8.5 grams 10/14/22 [Rx Last Taken Unknown] budesonide-formoterol HFA 160 mcg-4.5 mcg/actuation aerosol inhaler (Symbicort) 2 puff inhalation BID asthma #10.2 grams 10/14/22 [Rx Last Taken Unknown] cephalexin 500 mg capsule 500 mg PO Q6 #28 CAPSULES 03/17/23 [Rx Last Taken Unknown] Allergy/AdvReac Type Severity Reaction Status Date / Time amoxicillin Allergy Severe Hives Verified 03/17/23 18:49 aspirin Allergy Severe Hives, SOB Verified 03/17/23 18:49 Sulfa (Sulfonamide Allergy Severe Hives Verified 03/17/23 18:49 Antibiotics) Family History (Reviewed 10/14/22 @ 13:59 by Leeanna Mascorro HYDROGEOLOGY PROFESSOR, HYDROGEOLOGY PROFESSOR-C) Mother Diabetes Father CAD (coronary artery disease) Sister Lung cancer Son Kidney stone Surgical History (Reviewed 10/14/22 @ 13:59 by Leeanna Mascorro HYDROGEOLOGY PROFESSOR, HYDROGEOLOGY PROFESSOR-C) History of appendectomy History of kidney surgery Presence of permanent cardiac pacemaker (04/01/19) Social History (Reviewed 10/14/22 @ 13:59 by Leeanna Mascorro HYDROGEOLOGY PROFESSOR, HYDROGEOLOGY PROFESSOR-C) household members: none housing: house number of children: 3 current occupational status: retired Smoking Status: Never smoker alcohol intake: never substance use type: does not use what type of physical activity do you participate in: none do you feel safe at home: Yes ROS ROS ED Review of Systems ROS Unobtainable: other Constitutional Constitutional ED: Reports lethargy; Denies chills, fever(s), sweats or weight loss Eyes Eyes: Denies blurry vision, change in vision or diplopia ENT ENT ED: Denies rhinorrhea or sore throat Cardiovascular Cardiovascular: Denies chest pain, orthopnea or racing heartbeat Respiratory/Chest Respiratory/Chest: Reports cough, dyspnea and dyspnea on exertion; Denies orthopnea or sputum Gastrointestinal Gastrointestinal: Denies abdominal pain, diarrhea, nausea or vomiting Genitourinary Genitourinary ED: Reports urinary frequency; Denies dysuria or hematuria Musculoskeletal Musculoskeletal: Denies arthralgias, back pain, myalgias or neck pain Integumentary Denies abscess, Abrasions or rash Neurologic Neurologic: Denies headache(s) or weakness Psychiatric Psychiatric: Denies anxiety, depression or suicidal thoughts Endocrine Endocrinology: Denies polydipsia, polyphagia or polyuria Hematologic/Lymphatic Hematologic/Lymphatic: Denies easy bleeding, easy bruising or lymphadenopathy Allergic/Immunologic Allergic/Immunologic ED: Denies mouth swelling, tongue swelling or urticaria EXAM Physical Exam Const Vital Signs: 03/17/23 18:47 03/17/23 19:51 03/17/23 19:52 Temperature 97.2 F L Temperature Source Temporal Pulse Rate 64 61 Respiratory Rate 18 18 Respiratory Effort Normal Non-Labored Respiratory Pattern Normal Blood Pressure 149/72 H Blood Pressure Mean 97 Pulse Ox 95 96 Oxygen Delivery Method Room Air Room Air Positive well nourished and well developed General Appearance ED: well developed and NAD HEENT Reports TM's clear and moist mucous membranes normocephalic and atraumatic; Negative for trauma or tenderness Tympanic Membrane ED: Yes TM's clear Eyes PERRL and EOMs intact bilaterally General Eye ED: Negative for pale conjunctiva or scleral icterus Neck no lymphadenopathy, supple and no JVD General: Negative for tenderness Chest Wall inspection of chest normal and palpation of chest normal Chest: Negative for tenderness Resp normal respiratory effort and clear to auscultation bilaterally Effort and Inspection: Negative for respiratory distress or pain with movement Auscultation: Negative for rhonchi, wheezes or diminished lung sounds Cardio regular rate, regular rhythm, S1 normal heart sound, S2 normal heart sound and no murmurs Peripheral Pulses: pulses 2+ throughout GI normal to inspection, nondistended, normoactive bowel sounds, soft to palpation, non-tender, non-distended and no masses Back/Spine no CVA tenderness and no thoracic nor lumbar tenderness Extremity normal to inspection General Extremety ED: Negative for edema General Extremity: Negative for edema Neuro oriented x3, CN's II-XII intact bilaterally, no sensory deficits noted and gait normal Sensorium / Orientation: awake, alert, oriented to person, oriented to place and oriented to time Motor Exam: strength 5/5 throughout and strength abnormal Psych mental status grossly normal Skin no rashes or lesions noted and no wounds MDM MDM MDM Narrative Medical decision making narrative: Patient presents with urinary frequency and history of UTIs. She also had a little bit of a cough. Daughter states that at times she saying things that do not make sense which she typically does when she has had a UTI in the past. Patient had an IV line established on arrival. CBC with differential obtained showed a white count of 9.2 with hemoglobin 13 platelet count of 136. Chemistries were unremarkable. Lactic acid was normal. COVID and flu testing was negative. Patient also had a urinalysis that was positive for UTI. Patient given Rocephin 1 g IV. Patient will be started on Keflex for home. I did send off urine culture and she initially had blood cultures ordered as well. Advised to return if confusion, vomiting, severe back pain, or condition should worsen anyway. Lab Data Labs: Laboratory Results - last 24 hr 03/17/23 03/17/23 03/17/23 20:00 20:55 20:55 WBC 9.2 RBC 3.99 L Hgb 13.0 Hct 38.9 MCV 97.5 MCH 32.6 H MCHC 33.4 RDW Std Deviation 44.5 H RDW Coeff of Jason 12.3 Plt Count 136 L MPV 9.4 Immature Gran % (Auto) 0.300 Neut % (Auto) 78.4 H Lymph % (Auto) 12.3 L [place] % (Auto) 7.4 Eos % (Auto) 1.2 Baso % (Auto) 0.4 Absolute Neuts (auto) 7.2 Absolute Lymphs (auto) 1.13 Nucleated RBC % 0 Sodium 136 Potassium 3.8 Chloride 103 Carbon Dioxide 25.0 Anion Gap 8 BUN 15 Creatinine 1.07 H Estim Creat Clear Calc 43.50 Est GFR (MDRD) Af Amer 64 Est GFR (MDRD) Non-Af 53 L BUN/Creatinine Ratio 14.0 Glucose 165 H Lactic Acid Calcium 8.9 Urine Color Yellow Urine Clarity Cloudy Urine pH 5.0 Ur Specific [place] 1.015 Urine Protein 100 H Urine Glucose (UA) Normal Urine Ketones Negative Urine Occult Blood 250 H Urine Nitrite Positive H Urine Bilirubin Negative Urine Urobilinogen Normal Ur Leukocyte Esterase 500 H 03/17/23 20:55 WBC RBC Hgb Hct MCV MCH MCHC RDW Std Deviation RDW Coeff of [place] Plt Count MPV Immature Gran % (Auto) Neut % (Auto) Lymph % (Auto) [place] % (Auto) Eos % (Auto) Baso % (Auto) Absolute Neuts (auto) Absolute Lymphs (auto) Nucleated RBC % Sodium Potassium Chloride Carbon Dioxide Anion Gap BUN Creatinine Estim Creat Clear Calc Est GFR (MDRD) Af Amer Est GFR (MDRD) Non-Af BUN/Creatinine Ratio Glucose Lactic Acid 1.0 Calcium Urine Color Urine Clarity Urine pH Ur Specific [place] Urine Protein Urine Glucose (UA) Urine Ketones Urine Occult Blood Urine Nitrite Urine Bilirubin Urine Urobilinogen Ur Leukocyte Esterase Radiography Diagnostic Testing: Clinical Impression(s) from Imaging Studies Chest X-Ray 03/17/23 20:39 IMPRESSION: No radiographic evidence of acute cardiopulmonary disease. Electronically Signed: Sharan Lewis MD at 21:06 EDT , Discharge Plan Triage Chief Complaint: General Illness ED Provider: Nedra Rivero Dx/Rx/DC Orders Clinical Impression: Acute UTI Instructions: Urinary Tract Infections in Women, ED Cystitis Female Adult Prescriptions: New cephalexin [cephalexin] 500 mg capsule 500 mg PO Q6 Qty: 28 0RF No Action oxycodone-acetaminophen 5-325 mg tablet 1 tab PO DAILY PRN (Reason: pain) (DME) TENS unit electrodes Pad See Rx Instructions .ROUTE .MEDSUPPLY Qty: 2 Rx Instructions: As directed albuterol sulfate 90 mcg/actuation HFA aerosol inhaler 2 puff INHALATION Q4H PRN (Reason: shortness of breath or wheezing) Qty: 8.5 6RF Rx Instructions: administer with spacer Symbicort 160-4.5 mcg/actuation HFA aerosol inhaler 2 puff INHALATION BID Qty: 10.2 11RF warfarin 5 MG tablet 5 mg PO SUMOTUFRSA Protocol: Dose Management Condition: Thursday Dose/Route: 5 mg Instruction: 1 x 5 mg tablet Condition: Thursday Dose/Route: 5 mg Instruction: 1 x 5 mg tablet Condition: Thursday Dose/Route: 5 mg Instruction: 1 x 5 mg tablet Condition: Thursday Dose/Route: 2.5 mg Instruction: 0.5 x 5 mg tablets Condition: Dose/Route: 2.5 mg Instruction: 0.5 x 5 mg tablets Condition: Thursday Dose/Route: 5 mg Instruction: 1 x 5 mg tablet Condition: Thursday Dose/Route: 5 mg Instruction: 1 x 5 mg tablet Protocol Text: Adjustment Start Date: Thursday12/02/22 INR Value: 2.3 INR Date: 12/02/22 Recheck Date: 12/30/22 Rx Instructions: 5 mg. , , THU atorvastatin 10 MG tablet 10 mg PO QHS gabapentin 300 mg capsule 600 mg PO QHS cyclobenzaprine 10 mg Tablet 5 - 10 mg PO BID PRN (Reason: Spasms) warfarin 5 mg tablet 2.5 mg PO WETH Protocol: Dose Management Condition: Thursday Dose/Route: 5 mg Instruction: 1 x 5 mg tablet Condition: Thursday Dose/Route: 5 mg Instruction: 1 x 5 mg tablet Condition: Thursday Dose/Route: 5 mg Instruction: 1 x 5 mg tablet Condition: Thursday Dose/Route: 2.5 mg Instruction: 0.5 x 5 mg tablets Condition: Dose/Route: 2.5 mg Instruction: 0.5 x 5 mg tablets Condition: Thursday Dose/Route: 5 mg Instruction: 1 x 5 mg tablet Condition: Thursday Dose/Route: 5 mg Instruction: 1 x 5 mg tablet Protocol Text: Adjustment Start Date: Thursday12/02/22 INR Value: 2.3 INR Date: 12/02/22 Recheck Date: 12/30/22 metformin 500 mg tablet extended release 24 hr 1,000 mg PO BID Label Comments: Take 2 tablets by mouth twice daily with meals. magnesium oxide 400 mg magnesium Tablet 400 mg PO DAILY gabapentin 300 mg capsule 300 mg PO .COMPLEX Label Comments: Take 2 capsules by mouth daily at bedtime AND 1 capsule every morning. Rx Instructions: 300 mg orally; Primary Care Provider: Ro Reed Referrals: Ro Reed MD [Primary Care Provider] - 3-5 Days Disposition Disposition: Home, Self Care
[2023-03-17 21:05] LABS: Mucous, Urine 0 SEEN /hpf (<or=2+)
[2023-03-17] MEDS: 0.9% Normal Saline 1,000 ML 150 ML IV (21:05)
[2023-03-17 21:10] LABS: Absolute Lymphocyte Count 1.13 X10^3/uL (0.83-4.51); Absolute Neutrophil Count 7.2 X10^3/uL (2.0-7.7); Basophil# 0.04 X10^3/uL; Basophil% 0.4 % (0-1); Eosinophil# 0.11 X10^3/uL; Eosinophils% 1.2 % (0-5); Hematocrit 38.9 % (37-47); Lymphocyte # 1.13 X10^3/ul (0.83-4.51); Lymphocyte % 12.3 % (19-41); Mean Corp Hgb Conc 33.4 g/dL (32-36); Mean Corpuscular Hgb 32.6 pg (27.0-32.0); Mean Corpuscular Volume 97.5 fL (81-99); Mean Platelet Vol. 9.4 fl (6.2-12.0); Monocyte# 0.68 X10^3/uL; Monocyte% 7.4 % (0-10); NRBC Flagged by Analyzer 0 % (0-5); Neutrophil # 7.18 X10^3/uL (2.7-7.7); Neutrophil % 78.4 % (47-70); Platelet Count 136 K/mm3 (150-450); RBC Distribution Width CV 12.3 % (11.6-14.6); RBC Distribution Width SD 44.5 fl (35.1-43.9); Red Blood Count 3.99 M/mm3 (4.2-5.4); White Blood Count 9.2 K/mm3 (4.4-11.0)
[2023-03-17 21:32] LABS: Anion Gap 8 (5-15); BUN 15 mg/dL (7-18); Calcium,Total 8.9 mg/dL (8.5-10.1); Chloride 103 mmol/L (98-107); Creatinine, Serum 1.07 mg/dL (0.55-1.02); EST Glomerular Filtration Rate 53 mL/min (>60); Est Glom Filt Rate - Afr Amer 64 mL/min (>60); Glucose 165 mg/dL (74-106); Potassium 3.8 mmol/L (3.5-5.1); Sodium Level 136 mmol/L (136-145)
[2023-03-17 21:34] LABS: Color, Urine Yellow (Yellow); Glucose, Dipstick Normal (Normal); Ketone-Dipstick Negative (Negative); Leukocyte Esterase-Dipstick 500 /ul (Negative); Nitrite-Dipstick Positive (Negative); Occult Blood-Urine 250 /ul (Negative); Protein-Dipstick 100 mg/dl (Negative); Specific Gravity, Urine 1.015 (1.002-1.030); Urine Bilirubin Dipstick Negative (Negative); Urine Clarity Cloudy (Clear); Urine Urobilinogen Normal (Normal)
[2023-03-17 22:02] LABS: Amorphous Sediment 1+ URATE; Bacteria 1+ /hpf (None Seen); Red Blood Cells-Urine 25-50 SEEN /hpf (0-5); Squamous Epithelial Cells - UA 0-5 SEEN /hpf (5-10); White Blood Cells >100 SEEN /hpf (0-5)
[2023-03-17] MEDS: Ceftriaxone 1 GM/50 ML BAG IV (22:45)
[2023-03-17 23:59] VITALS: BP 145/68; PULSE 78; RESP 18; O2SAT 97
== END 2023-03-18 00:01 | disposition home or self-care (01) ==
PROVIDERS: Emergency Provider Emergency Medicine; PCP Internal Medicine; Visit Provider Emergency Medicine
DX: N39.0 Urinary tract infection, site not specified (principal); I48.91 Unspecified atrial fibrillation; E11.9 Type 2 diabetes mellitus without complications; E78.5 Hyperlipidemia, unspecified; I10 Essential (primary) hypertension; Z79.01 Long term (current) use of anticoagulants; Z79.84 Long term (current) use of oral hypoglycemic drugs; J45.909 Unspecified asthma, uncomplicated; Z79.51 Long term (current) use of inhaled steroids; Z90.49 Acquired absence of other specified parts of digestive tract; Z95.0 Presence of cardiac pacemaker
CPT/HCPCS: 71045; 80048; 81001; 83605; 85025; 87040; 87428; 96365; 99283; J7030; A4216

== ENCOUNTER 2023-03-18 11:01 | Emergency (ER) | payer MEDICARE, SELFPAY ==
[2023-03-18 11:02] VITALS: BP 133/74; PULSE 71; RESP 18; TEMP 36.9; O2SAT 96; BMI 31.6
--- NOTE | 2023-03-18 11:24 | CT_ITS ---
HISTORY: dysequilibrium. TECHNIQUE: Multiple axial images were obtained of the head without intravenous contrast. A radiation dose optimization technique was used for this scan. 251 images. COMPARISON: 06/18/2022. FINDINGS: BRAIN PARENCHYMA: Multiple foci and zones of low attenuation in the bilateral cerebral white matter compatible with chronic small vessel ischemic gliosis. No acute intra-axial hemorrhage identified. CSF SPACES: Generalized volume loss. No midline shift or other significant mass effect. No acute extra-axial hemorrhage seen. OTHER: Intact calvarium. Left parietal scalp nodule again seen. No significant air fluid levels in the paranasal sinuses or mastoid air cells. Bilateral lens resections. CT/Brain/Head without Contrast IMPRESSION: No acute intracranial process identified. Mild chronic involutional and white matter changes. Electronically Signed: Hannah Mcnamara MD at 12:17 EDT ,
--- NOTE | 2023-03-18 11:25 | EDS_ITS ---
HPI HPI - Fall History of Present Illness Chief Complaint: Fall Informant: patient and family Narrative Narrative: Patient had 2 falls today. She states it was because she was off balance. She states she has been staggering for the past 3 days. She and family states this often happens when she has a UTI, and she has had urinary symptoms recently, frequency and hesitancy/urgency but no dysuria or hematuria. After she tells me all this, she was seen here yesterday and was diagnosed with a UTI, she was prescribed an antibiotic and has taken the first dose just this morning within the last couple hours. She denies any recent URI. She denies nausea or vomiting, headache, tinnitus, earache. No history of a stroke. She is anticoagulated on warfarin because of chronic A-fib. 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 Contact dermatitis and other eczema COVID-19 Cystitis DDD (degenerative disc disease) Diabetes mellitus Encephalopathy acute Essential hypertension Hx of bladder infections Hyperlipidemia Hypersomnia retirement (current) use of anticoagulants Obesity RAMESH (obstructive sleep apnea) Other secondary pulmonary hypertension Palpitations Pneumonia Shoulder dislocation Home Medications warfarin 5 mg tablet 5 mg PO DAILY blood thinner 11/18/18 [History Last Taken 06/15/22] atorvastatin 10 mg tablet 10 mg PO QHS cholesterol 12/11/19 [History Last Taken 06/15/22] TENS unit electrodes #2 ea 07/11/20 [History Last Taken Unknown] oxycodone-acetaminophen 5 mg-325 mg tablet 1 tab PO DAILY PRN pain 12/07/20 [History Last Taken 06/15/22] cyclobenzaprine 10 mg tablet 5 - 10 mg PO BID PRN Spasms 06/17/22 [History Last Taken 06/16/22] magnesium oxide 400 mg PO DAILY supplement 06/17/22 [History Last Taken 06/16/22] metformin 500 mg tablet,extended release 24 hr 1,000 mg PO BID DM 06/17/22 [History Last Taken 06/16/22] gabapentin 300 mg capsule 300 mg PO BREAKFAST nerve pain 08/04/22 [History Last Taken Unknown] gabapentin 300 mg capsule 600 mg PO QHS Neuropathy 08/04/22 [History Last Taken Unknown] albuterol sulfate 90 mcg/actuation aerosol inhaler 2 puff inhalation Q4H PRN shortness of breath or wheezing #8.5 grams 10/14/22 [Rx Last Taken Unknown] budesonide-formoterol HFA 160 mcg-4.5 mcg/actuation aerosol inhaler (Symbicort) 2 puff inhalation BID asthma #10.2 grams 10/14/22 [Rx Last Taken Unknown] Allergy/AdvReac Type Severity Reaction Status Date / Time amoxicillin Allergy Severe Hives Verified 03/17/23 18:49 aspirin Allergy Severe Hives, SOB Verified 03/17/23 18:49 Sulfa (Sulfonamide Allergy Severe Hives Verified 03/17/23 18:49 Antibiotics) Family History (Reviewed 10/14/22 @ 13:59 by Leeanna Mascorro FACILITIES MAINTENANCE TECHNICIAN, FACILITIES MAINTENANCE TECHNICIAN-C) Mother Diabetes Father CAD (coronary artery disease) Sister Lung cancer Son Kidney stone Surgical History (Reviewed 10/14/22 @ 13:59 by Leeanna Mascorro FACILITIES MAINTENANCE TECHNICIAN, FACILITIES MAINTENANCE TECHNICIAN-C) History of appendectomy History of kidney surgery Presence of permanent cardiac pacemaker (04/01/19) Social History household members: none housing: house number of children: 3 current occupational status: retired Smoking Status: Never smoker alcohol intake: never substance use type: does not use what type of physical activity do you participate in: none do you feel safe at home: Yes ROS ROS ED Constitutional Constitutional ED: Denies chills or fever(s) Eyes Eyes: Denies change in vision or diplopia ENT ENT ED: Denies rhinorrhea or sore throat Cardiovascular Cardiovascular: Denies chest pain or palpitations Respiratory/Chest Respiratory/Chest: Denies cough or dyspnea Gastrointestinal Gastrointestinal: Denies abdominal pain, diarrhea, nausea or vomiting Genitourinary Genitourinary ED: Reports urinary frequency and urinary urgency; Denies dysuria or hematuria Musculoskeletal Musculoskeletal: Reports as per HPI and extremity pain; Denies back pain or neck pain Integumentary Denies abscess or rash Neurologic Neurologic: Reports disequilibrium; Denies abnormal speech, dizziness, headache(s), other visual disturbances, paresthesias, seizure-like activity, syncope, vertigo or weakness Psychiatric Psychiatric: Denies anxiety or suicidal thoughts EXAM Physical Exam Const Vital Signs: 03/18/23 11:02 03/18/23 11:06 Temperature 98.4 F Temperature Source Oral Pulse Rate 71 Respiratory Rate 18 Respiratory Effort Normal Non-Labored Blood Pressure 133/74 H Blood Pressure Mean 93 Pulse Ox 96 Oxygen Delivery Method Room Air Room Air Positive well nourished and well developed General Appearance ED: well developed and NAD HEENT Reports TM's normal bilaterally and moist mucous membranes normocephalic and atraumatic Eyes PERRL and EOMs intact bilaterally Eyes Narrative: No pathologic nystagmus Neck full ROM and supple Resp normal respiratory effort and clear to auscultation bilaterally Cardio regular rate, regular rhythm and no murmurs GI non-tender and non-distended Auscultation: normoactive bowel sounds Palpation: soft Back/Spine no CVA tenderness General Back: other FROM Extremity normal to inspection Extremity Narrative: Tender left greater trochanter, but painless full range of motion with regards to the groin/hip. No shortening or deformity. General Extremety ED: Yes tenderness; Negative for edema or pulses abnormal General Extremity: Negative for edema or pulses abnormal Neuro oriented x3, CN's II-XII intact bilaterally and no sensory deficits noted Neuro Narrative: Normal [id number] and [id number] bilaterally Sensorium / Orientation: awake and alert Motor Exam: strength 5/5 throughout Psych mental status grossly normal and thought process normal Skin no rashes or lesions noted and no wounds MDM MDM MDM Narrative Medical decision making narrative: X-rays of the left hip and pelvis 3 views of my interpretation show chronic osteopenia but no acute fractures. Radiology in agreement. I am at a very low suspicion of an actual hip joint fracture, so I do not think we need to obtain further advanced imaging or admit her, she is only having pain externally at the greater trochanter and not in the joint space. I performed a head CT more to ensure no signs of a posterior stroke given her disequilibrium which is an unusual symptom to have with a UTI although she has had a before. I reviewed those images they appear unremarkable, radiology was in agreement and agree with their interpretation. Patient was reassured, and encouraged to use her walker which she has at home and she was not using today when going back and forth. Continue the antibiotic for the urine infection, I reviewed her old records from yesterday and I confirmed that she does have a urine infection. History & Record Review Additional record(s) reviewed:: Prior ED visit and Prior labs Radiography Diagnostic Testing: Clinical Impression(s) from Imaging Studies Brain CT 03/18/23 11:24 IMPRESSION: No acute intracranial process identified. Mild chronic involutional and white matter changes. Electronically Signed: Hannah Mcnamara MD at 12:17 EDT , Hip/Pelvis X-Ray 03/18/23 11:35 IMPRESSION: Generalized osteopenia with age consistent bilateral hip and SI joint arthrosis. No acute fracture or suspicious osseous lesion. However, hip and pelvic fractures in patients of this age can be subtle, if there is strong clinical suspicion of a fracture, recommend further evaluation with CT Electronically Signed: Darrian Culp MD at 11:54 EDT , Discharge Plan Triage Chief Complaint: Fall ED Provider: Pete Che Dx/Rx/DC Orders Clinical Impression: Accidental fall, Acute UTI, Contusion of hip, left, Dysequilibrium Instructions: Falls Prevent Use Cane Walker, ED Hip Contusion Prescriptions: No Action oxycodone-acetaminophen 5-325 mg tablet 1 tab PO DAILY PRN (Reason: pain) (DME) TENS unit electrodes Pad See Rx Instructions .ROUTE .MEDSUPPLY Qty: 2 Rx Instructions: As directed albuterol sulfate 90 mcg/actuation HFA aerosol inhaler 2 puff INHALATION Q4H PRN (Reason: shortness of breath or wheezing) Qty: 8.5 6RF Rx Instructions: administer with spacer Symbicort 160-4.5 mcg/actuation HFA aerosol inhaler 2 puff INHALATION BID Qty: 10.2 11RF warfarin 5 MG tablet 5 mg PO DAILY Protocol: Dose Management Condition: Thursday Dose/Route: 5 mg Instruction: 1 x 5 mg tablet Condition: Thursday Dose/Route: 5 mg Instruction: 1 x 5 mg tablet Condition: Thursday Dose/Route: 5 mg Instruction: 1 x 5 mg tablet Condition: Thursday Dose/Route: 2.5 mg Instruction: 0.5 x 5 mg tablets Condition: Dose/Route: 2.5 mg Instruction: 0.5 x 5 mg tablets Condition: Thursday Dose/Route: 5 mg Instruction: 1 x 5 mg tablet Condition: Thursday Dose/Route: 5 mg Instruction: 1 x 5 mg tablet Protocol Text: Adjustment Start Date: Thursday12/02/22 INR Value: 2.3 INR Date: 12/02/22 Recheck Date: 12/30/22 Rx Instructions: 5 mg. , , THU atorvastatin 10 MG tablet 10 mg PO QHS gabapentin 300 mg capsule 600 mg PO QHS cyclobenzaprine 10 mg Tablet 5 - 10 mg PO BID PRN (Reason: Spasms) metformin 500 mg tablet extended release 24 hr 1,000 mg PO BID Label Comments: Take 2 tablets by mouth twice daily with meals. magnesium oxide 400 mg magnesium Tablet 400 mg PO DAILY gabapentin 300 mg capsule 300 mg PO BREAKFAST Label Comments: Take 2 capsules by mouth daily at bedtime AND 1 capsule every morning. Rx Instructions: 300 mg orally; Primary Care Provider: Ro Reed Referrals: Ro Reed MD [Primary Care Provider] - 3-5 Days if not improving Activity Restrictions/Additional Instructions: Continue the cephalexin as prescribed for your urine infection until complete and gone Disposition Disposition: Home, Self Care
--- NOTE | 2023-03-18 11:35 | RAD_ITS ---
STUDY: X-RAY - PELVIS AND LEFT HIP REASON FOR EXAM: Female, 78 years old. Pain after fall TECHNIQUE: 3 views of the pelvis and hip. COMPARISON: None. FINDINGS: There is a non-specific bowel gas pattern. Normal visualized soft tissue structures. There is diffuse demineralization of the osseous structures. There is narrowing with cortical sclerosis and osteophyte formation of the sacroiliac joint consistent with degenerative osteoarthritic changes. Normal bilateral superior and inferior pubic rami. Normal pubic symphysis. Normal bilateral ischial tuberosities. Normal visualized femoral head. Normal acetabulum. There is mild articular joint space narrowing of the hip. Similar arthritic narrowing noted in the right hip. RAD/HIP, UNI W/ Pelvis 2-3 Views IMPRESSION: Generalized osteopenia with age consistent bilateral hip and SI joint arthrosis. No acute fracture or suspicious osseous lesion. However, hip and pelvic fractures in patients of this age can be subtle, if there is strong clinical suspicion of a fracture, recommend further evaluation with CT Electronically Signed: Darrian Culp MD at 11:54 EDT ,
[2023-03-18 13:06] VITALS: BP 121/74; PULSE 79; RESP 18; O2SAT 100
== END 2023-03-18 13:07 | disposition home or self-care (01) ==
PROVIDERS: Emergency Provider Emergency Medicine; PCP Internal Medicine; Visit Provider Emergency Medicine
DX: S70.02XA Contusion of left hip, initial encounter (principal); I48.20 Chronic atrial fibrillation, unspecified; E11.9 Type 2 diabetes mellitus without complications; N39.0 Urinary tract infection, site not specified; E78.5 Hyperlipidemia, unspecified; W19.XXXA Unspecified fall, initial encounter; I10 Essential (primary) hypertension; R42 Dizziness and giddiness; Z79.01 Long term (current) use of anticoagulants; Z79.84 Long term (current) use of oral hypoglycemic drugs; J45.909 Unspecified asthma, uncomplicated; Z79.899 Other long term (current) drug therapy; Z79.51 Long term (current) use of inhaled steroids; Z90.49 Acquired absence of other specified parts of digestive tract; Z95.0 Presence of cardiac pacemaker
CPT/HCPCS: 70450; 73502; 99284

== ENCOUNTER 2023-03-31 10:11 | Outpatient (RCR) | payer MEDICARE, SELFPAY ==
[2022-12-23 23:01] VITALS: BMI 29.2
[2023-03-31 10:48] LABS: International Normalized Ratio 2.2; Prothrombin Time (Protime)PT. 24.2 SECONDS (11.7-14.9)
== END 2023-03-31 18:00 | disposition home or self-care (01) ==
LOC: LAB 10:11
PROVIDERS: Family Provider Internal Medicine; PCP Internal Medicine; Referring Provider Internal Medicine Cardiovascular Disease; Visit Provider Internal Medicine Cardiovascular Disease
DX: I48.91 Unspecified atrial fibrillation (principal); I48.92 Unspecified atrial flutter; Z79.01 Long term (current) use of anticoagulants
CPT/HCPCS: 36415; 85610

== ENCOUNTER 2023-05-09 09:48 | Emergency (ER) | payer MEDICARE, SELFPAY ==
[2023-05-09 09:49] VITALS: BP 148/78; PULSE 82; RESP 14; TEMP 36.6; O2SAT 99; BMI 29.6
--- NOTE | 2023-05-09 10:47 | EDS_ITS ---
HPI History of Present Illness Chief Complaint: Burn Informant: patient Onset/Context/Timing Onset: Days Context: Sudden Onset Timing: Continuous Current Severity: Moderate Maximum Severity: Moderate Narrative Narrative: [id number] female diabetic who was cooking food last Thursday fell off the plate and burned the top of her left foot. Secondary burn with vesicles. She now has an area of black skin and redness around it with more discomfort. Denies fever or chills. No pus. 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 Contact dermatitis and other eczema COVID-19 Cystitis DDD (degenerative disc disease) Diabetes mellitus Encephalopathy acute Essential hypertension Hx of bladder infections Hyperlipidemia Hypersomnia USP (current) use of anticoagulants Obesity RAMESH (obstructive sleep apnea) Other secondary pulmonary hypertension Palpitations Pneumonia Shoulder dislocation Home Medications warfarin 5 mg tablet 5 mg PO DAILY blood thinner 11/18/18 [History Last Taken 06/15/22] atorvastatin 10 mg tablet 10 mg PO QHS cholesterol 12/11/19 [History Last Taken 06/15/22] TENS unit electrodes #2 ea 07/11/20 [History Last Taken Unknown] oxycodone-acetaminophen 5 mg-325 mg tablet 1 tab PO DAILY PRN pain 12/07/20 [History Last Taken 06/15/22] cyclobenzaprine 10 mg tablet 5 - 10 mg PO BID PRN Spasms 06/17/22 [History Last Taken 06/16/22] magnesium oxide 400 mg PO DAILY supplement 06/17/22 [History Last Taken 06/16/22] metformin 500 mg tablet,extended release 24 hr 1,000 mg PO BID DM 06/17/22 [History Last Taken 06/16/22] gabapentin 300 mg capsule 300 mg PO BREAKFAST nerve pain 08/04/22 [History Last Taken Unknown] gabapentin 300 mg capsule 600 mg PO QHS Neuropathy 08/04/22 [History Last Taken Unknown] albuterol sulfate 90 mcg/actuation aerosol inhaler 2 puff inhalation Q4H PRN shortness of breath or wheezing #8.5 grams 10/14/22 [Rx Last Taken Unknown] budesonide-formoterol HFA 160 mcg-4.5 mcg/actuation aerosol inhaler (Symbicort) 2 puff inhalation BID asthma #10.2 grams 10/14/22 [Rx Last Taken Unknown] cephalexin 500 mg capsule 500 mg PO Q6 #28 CAPSULES 03/18/23 [Rx Last Taken Unknown] prednisone 20 mg tablet 60 mg (3 x 20 mg) PO QDAY #15 tabs 04/16/23 [Rx Last Taken Unknown] cephalexin 500 mg capsule 500 mg PO Q6 10 days #40 CAPSULES 05/09/23 [Rx Last Taken Unknown] Allergy/AdvReac Type Severity Reaction Status Date / Time amoxicillin Allergy Severe Hives Verified 05/09/23 09:51 aspirin Allergy Severe Hives, SOB Verified 05/09/23 09:51 Sulfa (Sulfonamide Allergy Severe Hives Verified 05/09/23 09:51 Antibiotics) Family History Mother Diabetes Father CAD (coronary artery disease) Sister Lung cancer Son Kidney stone Surgical History History of appendectomy History of kidney surgery Presence of permanent cardiac pacemaker (04/01/19) Social History household members: none housing: house number of children: 3 current occupational status: retired Smoking Status: Never smoker alcohol intake: never substance use type: does not use what type of physical activity do you participate in: none do you feel safe at home: Yes ROS ROS ED ROS Narrative Denies. Review of Systems ROS Unobtainable: Denies due to encephalopathy Constitutional Constitutional ED: Denies chills or fever(s) Eyes Eyes: Denies blurry vision ENT ENT ED: Denies ear pain Cardiovascular Cardiovascular: Denies chest pain Respiratory/Chest Respiratory/Chest: Denies cough or dyspnea Gastrointestinal Gastrointestinal: Denies abdominal pain Genitourinary Genitourinary ED: Denies dysuria or hematuria Musculoskeletal Musculoskeletal: Denies arthralgias Integumentary Denies abscess Neurologic Neurologic: Denies headache(s) Psychiatric Psychiatric: Denies anxiety Endocrine Endocrinology: Denies cold intolerance Hematologic/Lymphatic Hematologic/Lymphatic: Reports none Allergic/Immunologic Allergic/Immunologic ED: Denies mouth swelling or tongue swelling EXAM Physical Exam Narrative Exam Narrative: Today female no acute distress. Vital signs stable afebrile. HEENT exam unremarkable. Neck nontender no lymphadenopathy. Lungs clear to auscultation bilaterally. Heart regular rhythm no murmur rate about 80. Chest were nontender. Abdomen soft nontender. Moving all 4 extremities. Neurovascular intact. Top of her left foot is red and tender consistent with cellulitis. There is a quarter to half dollar sized wound on the top of her foot just proximal to the great toe and second toe in the webspace consistent with second- degree burn. There is some necrotic skin. No pus. No crepitance. No discharge. Foot is neurovascular intact. She is able to wiggle her toes. There is no significant swelling. The cellulase skin on the top is tender to touch. Bottom of the foot is unremarkable. There is no lymphangitic streaking. No inguinal lymphadenopathy. She has normal range of motion to her foot and ankle, knee and hip. normal DP pulse. Const Vital Signs: 05/09/23 09:49 05/09/23 10:07 Temperature 97.9 F Temperature Source Temporal Pulse Rate 82 Respiratory Rate 14 Respiratory Effort Normal Blood Pressure 148/78 H Blood Pressure Mean 101 Pulse Ox 99 Oxygen Delivery Method Room Air Positive well nourished and well developed; Negative for contractures or unkempt General Appearance ED: well developed and NAD; Negative for unkempt, cont ractures, cyanotic, diaphoretic or pallor HEENT Reports moist mucous membranes; Denies dry mucous membranes Negative for trauma or tenderness Mouth ED: No dry mucous membranes Mouth: No dry mucous membranes Eyes PERRL and EOMs intact bilaterally General Eye ED: Negative for pale conjunctiva, scleral icterus or other Neck no lymphadenopathy, supple and no JVD General: Negative for tenderness Chest Wall inspection of chest normal and palpation of chest normal Chest: Negative for other Resp normal respiratory effort and clear to auscultation bilaterally Effort and Inspection: Negative for retractions Auscultation: Negative for rales, rhonchi or wheezes Cardio regular rate, regular rhythm, S1 normal heart sound, S2 normal heart sound and no murmurs Rate: Negative for bradycardia or tachycardic Rhythm: Negative for abnormal rhythm GI normal to inspection, nondistended, normoactive bowel sounds, non-tender, non- distended and no masses Inspection: Negative for abdominal distention Auscultation: normoactive bowel sounds Palpation: soft; Negative for tender or guarding Bladder / Kidney Exam: No other Back/Spine no CVA tenderness Extremity normal to inspection Extremity Narrative: Exam. The left foot just proximal to the great toe and second toe there is a quarter half-dollar sized wound from a burn. Some necrotic tissue. Surrounding redness consistent with cellulitis.Tender to palpation. Neurovascularly intact. No significant swelling. No lymphangitic streaking. General Extremety ED: Yes tenderness Neuro oriented x3 and CN's II-XII intact bilaterally Sensorium / Orientation: alert; Negative for orientation impaired, lethargic or stuporous Motor Exam: strength 5/5 throughout; Negative for general weakness Psych mental status grossly normal Appearance: Negative for unkempt Attitude: No agitated Mood & Affect: Negative for depressed or anxious Skin no rashes or lesions noted and No no wounds Skin Narrative: Lysed on the left foot. Burn top of the left foot. General Skin Exam: elasticity normal; Negative for jaundice or pallor Rashes: No rashes noted MDM MDM MDM Narrative Medical decision making narrative: 78-year-old diabetic female out of a secondary burn on top of her left foot not infected. It is limited to the top of the foot. There is no lymphangitic streaking. No systemic symptoms nor fever. She was started on Keflex 504 times a day. Given first dose here. For 10 days. Sent to her pharmacy. She understands if it gets worse to return. Her blood sugars been running well. She does not need any imaging or labs. History & Record Review Discussion w/independent historian: Patient and Family Additional record(s) reviewed:: Prior inpatient record, Prior outpatient record, Prior ED visit and Prior labs Discharge Plan Triage Chief Complaint: Burn ED Provider: Abdifatah Lemon Dx/Rx/DC Orders Clinical Impression: Second degree burn, History of diabetes mellitus, Cellulitis of foot Instructions: ED Cellulitis Prescriptions: New cephalexin 500 mg capsule 500 mg PO Q6 10 Days Qty: 40 0RF No Action oxycodone-acetaminophen 5-325 mg tablet 1 tab PO DAILY PRN (Reason: pain) (DME) TENS unit electrodes Pad See Rx Instructions .ROUTE .MEDSUPPLY Qty: 2 Rx Instructions: As directed albuterol sulfate 90 mcg/actuation HFA aerosol inhaler 2 puff INHALATION Q4H PRN (Reason: shortness of breath or wheezing) Qty: 8.5 6RF Rx Instructions: administer with spacer Symbicort 160-4.5 mcg/actuation HFA aerosol inhaler 2 puff INHALATION BID Qty: 10.2 11RF prednisone 20 mg tablet 60 mg PO QDAY Qty: 15 0RF Rx Instructions: administer with food or milk warfarin 5 MG tablet 5 mg PO DAILY Protocol: Dose Management Condition: Thursday Dose/Route: 5 mg Instruction: 1 x 5 mg tablet Condition: Thursday Dose/Route: 5 mg Instruction: 1 x 5 mg tablet Condition: Thursday Dose/Route: 5 mg Instruction: 1 x 5 mg tablet Condition: Thursday Dose/Route: 5 mg Instruction: 1 x 5 mg tablet Condition: Dose/Route: 2.5 mg Instruction: 0.5 x 5 mg tablets Condition: Thursday Dose/Route: 2.5 mg Instruction: 0.5 x 5 mg tablets Condition: Thursday Dose/Route: 5 mg Instruction: 1 x 5 mg tablet Protocol Text: Adjustment Start Date: Thursday03/31/23 INR Value: 2.2 INR Date: 03/31/23 Recheck Date: 04/28/23 Rx Instructions: 5 mg. , , THU atorvastatin 10 MG tablet 10 mg PO QHS gabapentin 300 mg capsule 600 mg PO QHS cyclobenzaprine 10 mg Tablet 5 - 10 mg PO BID PRN (Reason: Spasms) metformin 500 mg tablet extended release 24 hr 1,000 mg PO BID Patient Comments: Take 2 tablets by mouth twice daily with meals. magnesium oxide 400 mg magnesium Tablet 400 mg PO DAILY gabapentin 300 mg capsule 300 mg PO BREAKFAST Patient Comments: Take 2 capsules by mouth daily at bedtime AND 1 capsule every morning. Rx Instructions: 300 mg orally; cephalexin [cephalexin] 500 mg capsule 500 mg PO Q6 Qty: 28 0RF Primary Care Provider: Ro Reed Referrals: Ro Reed MD [Primary Care Provider] - 3-5 Days if not improving Activity Restrictions/Additional Instructions: Elevate the leg to decrease pain and swelling The antibiotic Keflex 1 pill 4 times a day for the next 10 days till gone. Return if obvious to doctor if this is looking worse such as fever, streaks up your leg, the foot looks a lot worse or you feel worse. The antibiotic over the next several days should start working against the infection. Tylenol Motrin for pain. Disposition Disposition: Home, Self Care
[2023-05-09] MEDS: Cephalexin 250 MG Capsule 500 MG PO (10:55)
== END 2023-05-09 11:06 | disposition home or self-care (01) ==
LOC: ED 11:05
PROVIDERS: Emergency Provider Emergency Medicine; PCP Internal Medicine; Visit Provider Emergency Medicine
DX: T25.222A Burn of second degree of left foot, initial encounter (principal); L03.116 Cellulitis of left lower limb; G47.33 Obstructive sleep apnea (adult) (pediatric); Z86.16 Personal history of COVID-19; Z95.0 Presence of cardiac pacemaker; X58.XXXA Exposure to other specified factors, initial encounter
CPT/HCPCS: 99283

== ENCOUNTER 2023-05-21 11:09 | Emergency (ER) | payer MEDICARE, SELFPAY ==
[2023-05-21 11:10] VITALS: BP 136/97; PULSE 87; RESP 18; TEMP 35.7; O2SAT 97; BMI 29.5
--- NOTE | 2023-05-21 12:40 | RAD_ITS ---
STUDY: X-RAY - LEFT FOOT CLINICAL: Female, 78 years old. Injury/Pain -- Nonhealing wound x1 month TECHNIQUE: 3 view(s) of the foot. COMPARISON: Comparison is made with prior study dated May 18, 2019. FINDINGS: There is a plantar calcaneal spur. Normal visualized subtalar, talonavicular, calcaneocuboid, tarsal and tarsometatarsal articulations. Normal metatarsi. Normal metatarsophalangeal joint of the great toe. There is a bipartite fibula sesamoid. Normal interphalangeal joint of the great toe. Normal phalanges of the great toe. Normal second through fifth metatarsophalangeal joints. Normal interphalangeal joints and phalanges of the lesser toes. Diffuse soft tissue swelling. Vascular calcification. RAD/Foot min 3 Views IMPRESSION: Diffuse soft tissue swelling. Plantar spur. Electronically Signed: Chance Pearl MD at 12:56 EDT ,
[2023-05-21 12:54] LABS: Anion Gap 5 (5-15); BUN 21 mg/dL (7-18); BUN/Creat Ratio 20.2 RATIO (10-20); Calcium,Total 9.3 mg/dL (8.5-10.1); Chloride 103 mmol/L (98-107); Creatinine, Serum 1.04 mg/dL (0.55-1.02); EST Glomerular Filtration Rate 55 mL/min (>60); Est Glom Filt Rate - Afr Amer 66 mL/min (>60); Estimated Creatinine Clearance 46.42 ml/min; Glucose 101 mg/dL (74-106); Potassium 4.2 mmol/L (3.5-5.1); Sodium Level 138 mmol/L (136-145)
[2023-05-21 13:10] VITALS: RESP 16
[2023-05-21 13:12] LABS: Erythrocyte Sedimentation Rate 3 mm/hr (0-30)
[2023-05-21 13:15] LABS: Absolute Lymphocyte Count 1.76 X10^3/uL (0.83-4.51); Absolute Neutrophil Count 5.5 X10^3/uL (2.0-7.7); Basophil# 0.06 X10^3/uL; Basophil% 0.7 % (0-1); Eosinophil# 0.19 X10^3/uL; Eosinophils% 2.3 % (0-5); Hematocrit 43.9 % (37-47); Hemoglobin 14.5 g/dL (12.0-15.0); Lymphocyte # 1.76 X10^3/ul (0.83-4.51); Lymphocyte % 21.2 % (19-41); Mean Corpuscular Hgb 32.3 pg (27.0-32.0); Mean Corpuscular Volume 97.8 fL (81-99); Mean Platelet Vol. 9.5 fl (6.2-12.0); Monocyte% 8.4 % (0-10); NRBC Flagged by Analyzer 0 % (0-5); Neutrophil # 5.51 X10^3/uL (2.7-7.7); Neutrophil % 66.2 % (47-70); Platelet Count 155 K/mm3 (150-450); RBC Distribution Width CV 12.4 % (11.6-14.6); RBC Distribution Width SD 44.8 fl (35.1-43.9); Red Blood Count 4.49 M/mm3 (4.2-5.4); White Blood Count 8.3 K/mm3 (4.4-11.0)
--- NOTE | 2023-05-21 13:22 | ED.VIS.LOWEX ---
HPI History of Present Illness Chief Complaint: Wound Check Detail of Chief Complaint: Nonhealing wound x1 month dorsum left foot Informant: patient and family (Family member has pictures of the wound.) Occured/Mechanism Mechanism/Context: Yes burn Burn: thermal Comment: Patient dropped hot rotisserie chicken on her foot that resulted in burn and subsequent infection. She was seen in the emergency room and treated for the infection. She presents because of wound has not progressed i.e. healed for over a month. Onset/Context/Timing Context: Sudden Onset Timing: Continuous Location: Dorsum of the left foot the proximity of the third and fourth toe webspace Current Severity: Mild Maximum Severity: Mild Worsened by: Suspect due to peripheral arterial disease. Per patient nothing Relieved by: Nothing Associated Symptoms Associated Symptoms: Negative for Parasthesia, Weakness or Loss of Funtion Narrative Narrative: Patient is a 78-year-old woman with history of obesity, diabetes, pulmonary hypertension, obstructive sleep apnea, long-term anticoagulant use for atrial fibrillation and hypertension who presents because of nonhealing wound dorsum of left foot due to thermal burn. This occurred over a month ago. She she was seen earlier this month and placed on a proper antibiotics. Wound did improve. Infection did resolve based on pictures taken by family member and based on my physical exam. Patient denies symptoms claudication. Patient was unaware that she had no hair on her toes. Tetanus Immunization: 5-10 years Prior similar symptoms: Yes Recent Illness/Hospitalization: Yes 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 Obesity RAMESH (obstructive sleep apnea) Other secondary pulmonary hypertension Palpitations Pneumonia Shoulder dislocation Home Medications warfarin 5 mg tablet 5 mg PO DAILY blood thinner 11/18/18 [History Last Taken 06/15/22] atorvastatin 10 mg tablet 10 mg PO QHS cholesterol 12/11/19 [History Last Taken 06/15/22] TENS unit electrodes #2 ea 07/11/20 [History Last Taken Unknown] oxycodone-acetaminophen 5 mg-325 mg tablet 1 tab PO DAILY PRN pain 12/07/20 [History Last Taken 06/15/22] cyclobenzaprine 10 mg tablet 5 - 10 mg PO BID PRN Spasms 06/17/22 [History Last Taken 06/16/22] magnesium oxide 400 mg PO DAILY supplement 06/17/22 [History Last Taken 06/16/22] metformin 500 mg tablet,extended release 24 hr 1,000 mg PO BID DM 06/17/22 [History Last Taken 06/16/22] gabapentin 300 mg capsule 300 mg PO BREAKFAST nerve pain 08/04/22 [History Last Taken Unknown] gabapentin 300 mg capsule 600 mg PO QHS Neuropathy 08/04/22 [History Last Taken Unknown] albuterol sulfate 90 mcg/actuation aerosol inhaler 2 puff inhalation Q4H PRN shortness of breath or wheezing #8.5 grams 10/14/22 [Rx Last Taken Unknown] budesonide-formoterol HFA 160 mcg-4.5 mcg/actuation aerosol inhaler (Symbicort) 2 puff inhalation BID asthma #10.2 grams 10/14/22 [Rx Last Taken Unknown] cephalexin 500 mg capsule 500 mg PO Q6 #28 CAPSULES 03/18/23 [Rx Last Taken Unknown] prednisone 20 mg tablet 60 mg (3 x 20 mg) PO QDAY #15 tabs 04/16/23 [Rx Last Taken Unknown] cephalexin 500 mg capsule 500 mg PO Q6 10 days #40 CAPSULES 05/09/23 [Rx Last Taken Unknown] Allergy/AdvReac Type Severity Reaction Status Date / Time amoxicillin Allergy Severe Hives Verified 05/21/23 11:11 aspirin Allergy Severe Hives, SOB Verified 05/21/23 11:11 Sulfa (Sulfonamide Allergy Severe Hives Verified 05/21/23 11:11 Antibiotics) Family History Mother Diabetes Father CAD (coronary artery disease) Sister Lung cancer Son Kidney stone Surgical History History of appendectomy History of kidney surgery Presence of permanent cardiac pacemaker (04/01/19) Social History household members: none housing: house number of children: 3 current occupational status: retired Smoking Status: Never smoker alcohol intake: never substance use type: does not use what type of physical activity do you participate in: none do you feel safe at home: Yes ROS ROS ED Constitutional Constitutional ED: Denies chills, fever(s), subjective, sweats or weight loss Eyes Eyes: Denies blurry vision, change in vision or diplopia Cardiovascular Cardiovascular: Denies chest pain or palpitations Respiratory/Chest Respiratory/Chest: Denies dyspnea or dyspnea on exertion Integumentary Reports rash and other Details: Thermal burn with eschar dorsum of left foot with no evidence of cellulitis, lymphangitis and there is no fluctuance. Neurologic Neurologic: Denies headache(s), paresthesias or weakness Psychiatric Psychiatric: Denies anxiety or depression Hematologic/Lymphatic Hematologic/Lymphatic: Reports easy bruising; Denies easy bleeding EXAM Physical Exam Const Vital Signs: 05/21/23 11:10 Temperature 96.2 F L Temperature Source Temporal Pulse Rate 87 Respiratory Rate 18 Blood Pressure 136/97 H Blood Pressure Mean 110 Pulse Ox 97 Oxygen Delivery Method Room Air Positive well nourished and well developed General Appearance ED: well developed and NAD HEENT Reports moist mucous membranes normocephalic and atraumatic Eyes PERRL Eyes Narrative: Extraocular muscles are intact. Conjunctive is pink. Sclera is anicteric. Chest Wall inspection of chest normal and palpation of chest normal Resp normal respiratory effort, no retractions and clear to auscultation bilaterally Cardio regular rate, regular rhythm, S1 normal heart sound, S2 normal heart sound and no murmurs Extremity full ROM; Negative for normal to inspection Extremity Narrative: DP pulses 1+ and symmetric. There is no hair on the toes. There is stigmata of vascular disease. There is an eschar noted without evidence of infection. Neuro oriented x3, CN's II-XII intact bilaterally, moves all extremities and no sensory deficits noted Sensorium / Orientation: alert Motor Exam: strength 5/5 throughout Psych mental status grossly normal Skin No no wounds Skin Narrative: Eschar size of a quarter on the dorsum of the left foot. Rashes: no rashes Trauma: Negative for abrasion or laceration MDM MDM MDM Narrative Medical decision making narrative: Suspect patient's wound is not healing well because she is diabetic with vascular disease. This is probably microvascular. CBC was obtained, sed rate and electrolyte panel to assess white count, differential, inflammatory markers and renal function and glucose. X-ray was obtained since the wound is not present for a month and was infected to assess for evidence of osteomyelitis or periosteal elevation. History & Record Review Discussion w/independent historian: Patient and Family Additional record(s) reviewed:: Prior ED visit and Prior labs Lab Data Attestation: I reviewed the patient's lab results. Lab results narrative: CBC is normal. Basic metabolic panel reveals a creatinine of 1.04 with a GFR 55 Labs: Laboratory Results - last 24 hr 05/21/23 12:30 WBC 8.3 RBC 4.49 Hgb 14.5 Hct 43.9 MCV 97.8 MCH 32.3 H MCHC 33.0 RDW Std Deviation 44.8 H RDW Coeff of Jason 12.4 Plt Count 155 MPV 9.5 Immature Gran % (Auto) 1.200 H Neut % (Auto) 66.2 Lymph % (Auto) 21.2 [place] % (Auto) 8.4 Eos % (Auto) 2.3 Baso % (Auto) 0.7 Absolute Neuts (auto) 5.5 Absolute Lymphs (auto) 1.76 Nucleated RBC % 0 ESR 3 Sodium 138 Potassium 4.2 Chloride 103 Carbon Dioxide 30.0 Anion Gap 5 BUN 21 H Creatinine 1.04 H Estim Creat Clear Calc 46.42 Est GFR (MDRD) Af Amer 66 Est GFR (MDRD) Non-Af 55 L BUN/Creatinine Ratio 20.2 H Glucose 101 Calcium 9.3 Radiography Chest X-Ray - ED: Read by ED Physician (Three-view x-ray of the foot reveals soft tissue swelling. There is no evidence of osteomyelitis. There is no foreign body noted. This was independent reviewed and interpreted by me.) Diagnostic Testing: Clinical Impression(s) from Imaging Studies Foot X-Ray 05/21/23 12:40 IMPRESSION: Diffuse soft tissue swelling. Plantar spur. Electronically Signed: Chance Pearl MD at 12:56 EDT , Treatment and Re-Evaluation Narrative: Patient with 4 to the wound center since her evidence of infection. 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 Instructions: ED Dressing Change, ED Wound Care Prescriptions: No Action oxycodone-acetaminophen 5-325 mg tablet 1 tab PO DAILY PRN (Reason: pain) (DME) TENS unit electrodes Pad See Rx Instructions .ROUTE .MEDSUPPLY Qty: 2 Rx Instructions: As directed albuterol sulfate 90 mcg/actuation HFA aerosol inhaler 2 puff INHALATION Q4H PRN (Reason: shortness of breath or wheezing) Qty: 8.5 6RF Rx Instructions: administer with spacer Symbicort 160-4.5 mcg/actuation HFA aerosol inhaler 2 puff INHALATION BID Qty: 10.2 11RF prednisone 20 mg tablet 60 mg PO QDAY Qty: 15 0RF Rx Instructions: administer with food or milk warfarin 5 MG tablet 5 mg PO DAILY Protocol: Dose Management Condition: Thursday Dose/Route: 5 mg Instruction: 1 x 5 mg tablet Condition: Thursday Dose/Route: 5 mg Instruction: 1 x 5 mg tablet Condition: Thursday Dose/Route: 5 mg Instruction: 1 x 5 mg tablet Condition: Thursday Dose/Route: 5 mg Instruction: 1 x 5 mg tablet Condition: Dose/Route: 2.5 mg Instruction: 0.5 x 5 mg tablets Condition: Thursday Dose/Route: 2.5 mg Instruction: 0.5 x 5 mg tablets Condition: Thursday Dose/Route: 5 mg Instruction: 1 x 5 mg tablet Protocol Text: Adjustment Start Date: Thursday03/31/23 INR Value: 2.2 INR Date: 03/31/23 Recheck Date: 04/28/23 Rx Instructions: 5 mg. , , THU atorvastatin 10 MG tablet 10 mg PO QHS gabapentin 300 mg capsule 600 mg PO QHS cyclobenzaprine 10 mg Tablet 5 - 10 mg PO BID PRN (Reason: Spasms) metformin 500 mg tablet extended release 24 hr 1,000 mg PO BID Patient Comments: Take 2 tablets by mouth twice daily with meals. magnesium oxide 400 mg magnesium Tablet 400 mg PO DAILY gabapentin 300 mg capsule 300 mg PO BREAKFAST Patient Comments: Take 2 capsules by mouth daily at bedtime AND 1 capsule every morning. Rx Instructions: 300 mg orally; cephalexin [cephalexin] 500 mg capsule 500 mg PO Q6 Qty: 28 0RF cephalexin 500 mg capsule 500 mg PO Q6 10 Days Qty: 40 0RF Primary Care Provider: Ro Reed Referrals: Ro Reed MD [Primary Care Provider] - Wound,Center [Non-Staff] - As soon as possible Activity Restrictions/Additional Instructions: Wet-to-dry dressing changes 6 times a day. Disposition Disposition: Home, Self Care
== END 2023-05-21 14:08 | disposition home or self-care (01) ==
PROVIDERS: Emergency Provider Emergency Medicine; PCP Internal Medicine; Visit Provider Emergency Medicine
DX: S91.302A Unspecified open wound, left foot, initial encounter (principal); I27.20 Pulmonary hypertension, unspecified; E11.9 Type 2 diabetes mellitus without complications; G47.33 Obstructive sleep apnea (adult) (pediatric); Z86.16 Personal history of COVID-19; Z79.01 Long term (current) use of anticoagulants; X58.XXXA Exposure to other specified factors, initial encounter
CPT/HCPCS: 73630; 80048; 85025; 85652; 99283; A4216

== ENCOUNTER 2023-05-28 09:04 | Outpatient (RCR) | payer MEDICARE, SELFPAY ==
[2023-04-24 22:20] VITALS: BMI 29.2
[2023-05-28 10:19] LABS: International Normalized Ratio 3.3; Prothrombin Time (Protime)PT. 34.1 SECONDS (11.7-14.9)
== END 2023-05-28 18:00 | disposition home or self-care (01) ==
LOC: LAB 09:04
PROVIDERS: Family Provider Internal Medicine; PCP Internal Medicine; Referring Provider Internal Medicine Cardiovascular Disease; Visit Provider Internal Medicine Cardiovascular Disease
DX: I48.91 Unspecified atrial fibrillation (principal); I48.92 Unspecified atrial flutter; Z79.01 Long term (current) use of anticoagulants
CPT/HCPCS: 36415; 85610

== ENCOUNTER 2023-06-25 08:15 | Outpatient (RCR) | payer MEDICARE, SELFPAY ==
[2023-05-28 07:57] VITALS: BP 134/86; PULSE 96; RESP 16; TEMP 35.3; BMI 29.5
--- NOTE | 2023-05-28 08:29 | PCM.WC.HP ---
History of Present Illness Date of Service: 05/28/23 Chief Complaint: Nonhealing right leg ulcer. History of Wound: Ms. Red is a 78-year-old with PMHx of DM type II, A-fib, HLD, HTN, RAMESH, and obesity. She states roughly 4 weeks ago she dropped a rotisserie chicken and mashed potatoes onto the top of her left foot which resulted in significant burn to the dorsal aspect of the left foot with accompanying localized rubor. She had seen her PCP who placed her on a course of Keflex and she has finished this antibiotic to completion. She was referred to the wound care center for continued care secondary to nonhealing eschar covering the wound to the dorsal foot at the base of the third and fourth digits. Patient does state that the wound is tender to the touch. She denies any N/V/F/chills. Denies any further complaints. 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 Contact dermatitis and other eczema COVID-19 Cystitis DDD (degenerative disc disease) Diabetes mellitus Encephalopathy acute Essential hypertension Hx of bladder infections Hyperlipidemia Hypersomnia [facility] (current) use of anticoagulants Obesity RAMESH (obstructive sleep apnea) Other secondary pulmonary hypertension Palpitations Pneumonia Shoulder dislocation Home Medications warfarin 5 mg tablet 5 mg PO DAILY blood thinner 11/18/18 [History Last Taken 06/15/22] atorvastatin 10 mg tablet 10 mg PO QHS cholesterol 12/11/19 [History Last Taken 06/15/22] TENS unit electrodes #2 ea 07/11/20 [History Last Taken Unknown] oxycodone-acetaminophen 5 mg-325 mg tablet 1 tab PO DAILY PRN pain 12/07/20 [History Last Taken 06/15/22] cyclobenzaprine 10 mg tablet 5 - 10 mg PO BID PRN Spasms 06/17/22 [History Last Taken 06/16/22] magnesium oxide 400 mg PO DAILY supplement 06/17/22 [History Last Taken 06/16/22] metformin 500 mg tablet,extended release 24 hr 1,000 mg PO BID DM 06/17/22 [History Last Taken 06/16/22] gabapentin 300 mg capsule 300 mg PO BREAKFAST nerve pain 08/04/22 [History Last Taken Unknown] gabapentin 300 mg capsule 600 mg PO QHS Neuropathy 08/04/22 [History Last Taken Unknown] budesonide-formoterol HFA 160 mcg-4.5 mcg/actuation aerosol inhaler (Symbicort) 2 puff inhalation BID asthma #10.2 grams 10/14/22 [Rx Last Taken Unknown] cephalexin 500 mg capsule 500 mg PO Q6 #28 CAPSULES 03/18/23 [Rx Last Taken Unknown] prednisone 20 mg tablet 60 mg (3 x 20 mg) PO QDAY #15 tabs 04/16/23 [Rx Last Taken Unknown] cephalexin 500 mg capsule 500 mg PO Q6 10 days #40 CAPSULES 05/09/23 [Rx Last Taken Unknown] albuterol sulfate 90 mcg/actuation aerosol inhaler 2 puff inhalation Q4H PRN shortness of breath or wheezing #8.5 grams 05/24/23 [Rx Last Taken Unknown] Allergy/AdvReac Type Severity Reaction Status Date / Time amoxicillin Allergy Severe Hives Verified 05/21/23 11:11 aspirin Allergy Severe Hives, SOB Verified 05/21/23 11:11 Sulfa (Sulfonamide Allergy Severe Hives Verified 05/21/23 11:11 Antibiotics) Family History Mother Diabetes Father CAD (coronary artery disease) Sister Lung cancer Son Kidney stone Surgical History History of appendectomy History of kidney surgery Presence of permanent cardiac pacemaker (04/01/19) Social History household members: none housing: house number of children: 3 current occupational status: retired Smoking Status: Never smoker alcohol intake: never substance use type: does not use what type of physical activity do you participate in: none do you feel safe at home: Yes ROS Constitutional Constitutional: Denies anorexia, chills or fever(s) Eyes Eyes: Denies blurry vision, erythema or eye pain ENT HEENT: Denies dysphagia, nasal discharge or sore throat Cardiovascular Cardiovascular: Denies chest pain, dyspnea or palpitations Respiratory/Chest Respiratory/Chest: Denies cough, shortness of breath at rest or wheezing Gastrointestinal Gastrointestinal: Denies abdominal pain, constipation, diarrhea, nausea or vomiting Genitourinary Genitourinary: Denies dysuria, hematuria or urinary frequency Musculoskeletal Musculoskeletal: Denies joint pain, joint stiffness or joint swelling Integumentary Integumentary: Denies jaundice, lesions or rash Neurologic Neurologic: Denies dizziness, numbness or seizures Endocrine Endocrinology: Denies cold intolerance or heat intolerance Hematologic/Lymphatic Hematologic/Lymphatic: Denies easy bleeding or easy bruising Vital Signs Vital Signs Vital Signs: 05/28/23 07:57 Temperature 95.6 F L Temperature Source Temporal Pulse Rate 96 Respiratory Rate 16 Blood Pressure 134/86 H Blood Pressure Mean 102 Blood Pressure Source Monitor Blood Pressure Position Semi-Fowlers Blood Pressure Location Left Arm Weight Weight: 87.997 kg Body Mass Index (BMI) 29.5 Physical Exam Const alert, oriented x3, no apparent distress and well nourished General Appearance: cooperative HEENT normocephalic Eyes General Eye: normal appearance of both eyes Neck General: normal visual inspection Lymph Lymphatic: no lymphadenopathy noted and no lymphedema noted Resp normal respiratory effort Cardio regular rate and regular rhythm Extremity normal capillary refill, no joint enlargement, no calf tenderness and no pedal edema Extremity Narrative: DP and PT pulses weakly palpable. Capillary fill time is less than 4 seconds to the digits. On Doppler DP and PT are triphasic. Dermatological: There is a wound noted to the dorsal aspect of the left foot at the base of the third and fourth digits with eschar covering centrally and yellow fibrotic tissue about the wound margin with localized rubor secondary to burn from hot food. No erythema, no purulent drainage, no malodor, no palpable fluctuance/bogginess, no visible abscess, no lymphangitic streaking. Surrounding skin is thin. Musculoskeletal: Muscle strength 5 of 5 age-appropriate. There is decreased range of motion of the ankle joint in dorsiflexion with the knee extended without pain or crepitus. Pain to palpation about ulcerative site. Skin no rashes or lesions noted, skin turgor normal and no jaundice Neuro moves all extremities Debridement Note Debridement Note Wound debrided: Dorsal left foot Laterality: Left Wound Grade/Stage: Saeed stage I Type of Debridement: Excisional debridement Anesthesia Used: 5% Lidocaine Gel Depth: Down to and including healthy tissue and in the subcutaneous layer Percentage of wound debrided: 100 Instrument Used: 5mm curette, #15 blade and Forceps Tissue Removed: Fibrous, devitalized subcutaneous, biofilm, slough, eschar Severity: Fat Layer Exposed Amount of bleeding with debridement: Mild Bleeding Controlled with: Compression and gauze Patient tolerated procedure: Patient tolerated procedure well Post-Debridement Measurements and Additional Note: Post-Debridement Measurements/Treatment WC - Nurse 1 - General Ulcer Assessment Start: 05/28/23 07:57 Freq: Status: Active Protocol: LOWEXLiz Activity Type Activity Date Activity User E-sign Co-sign Detail Recorded Client Recorded Date Recorded By Document 05/28/23 07:57 [id number] 05/28/23 08:13 MARYURI 05/28/23 07:57 WC - Today's Visit Information Type of service Follow-up Visit (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 ) Arrival Mode Ambulatory Transfer Assistance Manual Patient Identification Verified (Name & Yes ) Patient Requires Transmission-Based Yes Precautions Safety Precautions Fall Prevention Finger Stick Blood Sugar(mg/dl) (if 130 indicated): Blood Sugar Stated by Patient Height and Weight Height 5 ft 8 in Weight 87.997 kg Weight in Pounds 194.0 lbs Weight Measurement Method Estimated by Patient Body Mass Index (BMI) 29.5 BMI Classification Overweight BSA - Deidre 2.02 Vital Signs Temperature (97.8 F-99.1 F) 95.6 F L Temperature Source Temporal Pulse Rate (60-100) 96 Pulse Location Monitor Respiratory Rate (12-18) 16 Respiratory rate source Observation Blood Pressure (90/60-120/80) 134/86 H Blood Pressure Mean 102 Source Monitor Position Semi-Fowlers Blood Pressure Location Left Arm History Since Last Visit- (Skip if this is Patient's initial visit) Left Footwear Regular Shoe Right Footwear Regular Shoe Pain Scale: 0-10 Numeric Is Patient Pain Free? Yes Lower Extremity Assessment/ Foot Assessment/ Toe Nail Assessment Right -Posterior Tibial Palpable Yes -Posterior Tibial Doppler Multiphasic -Dorsalis Pedis Palpable Yes -Dorsalis Pedis Doppler Multiphasic -Hair Growth on Legs No -Hair Growth on Toes No -Temperature of Extremity Warm -Capillary Refill Less than 3 Seconds Left -Posterior Tibial Palpable Yes -Posterior Tibial Doppler Multiphasic -Dorsalis Pedis Palpable Yes -Dorsalis Pedis Doppler Multiphasic -Hair Growth on Legs No -Hair Growth on Toes No -Temperature of Extremity Warm -Capillary Refill Less than 3 Seconds -Dependent Rubor No -Blanched when Elevated No Communication Assessment Primary Language Nauruan Preferred language Nauruan 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 Machine Operator Required No Able to Read Yes Able to Write Yes Communication Tools None Right Hearing Abillity Normal Left Hearing Abillity Normal Visual Assistive Devices Glasses Teaching Assessment Preferences Verbal,Written, Audio/Visual, Demonstration Barriers to Learning None Readiness To Learn Good Willingness to Engage in Self Management Med Activies Readiness to Engage in Self Management Med Activities Anxiety Level Calm Cooperation Cooperative Perception Coherent Interest in Health Problem Asks Questions Education Importance Acknowledges Need Does Patient Smoke tobacco or other No substances Smoking Status Never smoker Is Patient Diabetic Yes Functional Assessment Recent Decline in Ability to Perform Denies Any Declines Culture/Buddhism/Food Or Baggage Handling [place] Cultural/Buddhism Needs that may affect No Treatment Plan Would you allow our hospital machine tool designer to No meet you for the purpose of spiritual/ emotional support? Food Or Baggage Handling [place] to contact place of religious No Teaching: Wound Center *Welcome to the Wound Center -Person Taught Patient,Family -Teaching Method Discussion, Demonstration -Response to teaching Return demonstration, Verbalize understanding - Nurse 1 - General Ulcer Measurement Start: 05/28/23 07:57 Freq: Status: Active Protocol: Activity Type Activity Date Activity User E-sign Co-sign Detail Recorded Client Recorded Date Recorded By Document 05/28/23 07:57 [id number] 05/28/23 08:13 MARYURI 05/28/23 07:57 Wound Center Nurse 1 3-left dorsal foot -Combined with other wound No -Current Size (cm) - Length 2.0 -Current Size (cm) - Width 2.1 -Current Size (cm) - Depth 0.2 -Total Square Cm 4.20 -Photo Taken Yes -Epithelialization None Present -Tunneling No -Undermining/Tunneling No -Circular Undermining No -Classification - Thickness Unclassifiable (Eschar Covered ) -Exudate Amt Small -Exudate Type Serosanguineous -Wound Margin Flat & Intact -Granulation Amt None Present (0 %) -Slough/Fibrin Yes -Necrosis Amt Large (67-100%) -Necrotic Tissue Type Adherent Slough -Structure Exposed N/A -Texture (Beth-wound Skin Appearance) Assessed, Localized Edema -Moisture (Beth-wound Skin Appearance) Assessed,Dry/ Scaly -Color (Beth-wound Skin Appearance) Assessed -Temperature (Beth-wound Skin No Abnormality Appearance) (Pt Warm) -Tenderness on Palpation (Beth-wound No Skin Appearance) -Ulcer Cleansing Rinsed/ Irrigated with Saline -Foul Odor after Cleansing No -Anesthetic Used 5% Lidocaine Gel Lower Limb Edema Present NA Assessment/Plan Assessment/Plan (1) Wound eschar of foot: CODE(S): R23.4 - Changes in skin texture (2) Essential hypertension: CODE(S): I10 - Essential (primary) hypertension (3) Hyperlipidemia: CODE(S): E78.5 - Hyperlipidemia, unspecified QUALIFIERS: Hyperlipidemia type: unspecified Qualified Code(s): E78.5 - Hyperlipidemia, unspecified (4) Obesity: CODE(S): E66.9 - Obesity, unspecified QUALIFIERS: Obesity classification: unspecified obesity classification Obesity type: due to excess calories Serious obesity comorbidity presence: unspecified whether serious comorbidity present Qualified Code(s): E66.09 - Other obesity due to excess calories (5) Type 2 diabetes mellitus: CODE(S): E11.9 - Type 2 diabetes mellitus without complications QUALIFIERS: Diabetes mellitus complication status: with other specified complication Diabetes mellitus superintendent terminal insulin use: without half-way use Qualified Code(s): E11.69 - Type 2 diabetes mellitus with other specified complication (6) Pain in left foot: CODE(S): M79.672 - Pain in left foot (7) Non-pressure chronic ulcer of other part of left foot with fat layer exposed: CODE(S): L97.522 - Non-pressure chronic ulcer of other part of left foot with fat layer exposed PLAN: Plan Patient seen and evaluated 4 weeks ago patient dropped hot chicken and mashed potatoes on the top of her left foot resulting in a burn to the dorsal foot with skin eschar secondary to thin skin. Wound has not progressed secondary to diabetic status. She has completed full course of Keflex. Ulceration underwent debridement as noted in the clinical panel above. Ulceration measures 2.1 cm x 2.0 cm x 0.2 cm. Ulceration does demonstrate localized rubor secondary to her burn. No signs of infection. Following debridement healthy, bleeding granular tissue remained. Brianna applied to the wound base and dressed with dry sterile dressing. She is to change the dressing daily. We will seek approval for advanced wound care product, epi fix for next visit. Last known A1c performed at [facility] 06/18/2022 was 6.1%. Discussed proper diabetic diet today to ensure tight glycemic control. Discussed she is not to be barefoot given her diabetic status indoors or outdoors. Shoe gear was encouraged to be worn at all times. Discussed that socks count is barefoot. Discussed adequate protein intake to aid in wound healing. She may take Bonifacio supplementation to aid in wound healing. The following work up and care recommendations were made: Dressing: Brianna and dry sterile dressing. Change daily. Wash: Soap and water Tissue growth optimization: Brianna Offload: Ensure shoe gear does not rub on the wound site Vascular: DP and PT pulses weakly palpable however triphasic on Doppler. Adequate capillary fill time to digits. Edema: None Infection: No signs of infection Pain: May take [id number] Tylenol for discomfort Host factors: DM type II, obesity, HTN, HLD, patient education on barefoot status encouraged shoe gear to be worn. I answered all the patient's questions. To return to the wound healing center in 1 week or call sooner if the patient has any questions or concerns.
[2023-06-04 08:11] VITALS: BP 145/63; PULSE 94; RESP 16; TEMP 35.6; BMI 29.5
--- NOTE | 2023-06-04 08:28 | PCM.WC.PN ---
History of Present Illness Date of Service: 06/04/23 Chief Complaint: Nonhealing right leg ulcer. History of Wound: Ms. Red is a 78-year-old with PMHx of DM type II, A-fib, HLD, HTN, RAMESH, and obesity. She states roughly 4 weeks ago she dropped a rotisserie chicken and mashed potatoes onto the top of her left foot which resulted in significant burn to the dorsal aspect of the left foot with accompanying localized rubor. She had seen her PCP who placed her on a course of Keflex and she has finished this antibiotic to completion. She was referred to the wound care center for continued care secondary to nonhealing eschar covering the wound to the dorsal foot at the base of the third and fourth digits. Patient does state that the wound is tender to the touch. She denies any N/V/F/chills. Denies any further complaints. Subjective Subjective Patient is a 78-year-old female who follows to the wound care center with ulceration to the dorsal aspect of the left foot. She states she has been changing the dressings daily with the assistance of her granddaughter. She does admit to some tenderness about the wound site with dressing changes due to her adhesive tape. She denies constitutional symptoms. Denies further complaints. Objective Data Objective Data Vital Signs: Vital Signs Temp Pulse Resp BP 96.0 F L 94 16 145/63 H 06/04/23 08:11 06/04/23 08:11 06/04/23 08:11 06/04/23 08:11 Weight: 87.997 kg Body Mass Index (BMI) 29.5 Physical Exam Const alert, oriented x3, no apparent distress and well nourished General Appearance: cooperative HEENT normocephalic Eyes General Eye: normal appearance of both eyes Neck General: normal visual inspection Lymph Lymphatic: no lymphadenopathy noted and no lymphedema noted Resp normal respiratory effort Cardio regular rate and regular rhythm Extremity normal capillary refill, no joint enlargement, no calf tenderness and no pedal edema Extremity Narrative: DP and PT pulses weakly palpable. Capillary fill time is less than 4 seconds to the digits. On Doppler DP and PT are triphasic. Dermatological: There is a wound noted to the dorsal aspect of the left foot at the base of the third and fourth digits with yellow fibrotic tissue in the wound bed with localized rubor secondary to burn from hot food. Rubor is improving. No erythema, no purulent drainage, no malodor, no palpable fluctuance/bogginess, no visible abscess, no lymphangitic streaking. Surrounding skin is thin. Musculoskeletal: Muscle strength 5 of 5 age-appropriate. There is decreased range of motion of the ankle joint in dorsiflexion with the knee extended without pain or crepitus. Pain to palpation about ulcerative site. Skin no rashes or lesions noted, skin turgor normal and no jaundice Neuro moves all extremities Debridement Note Debridement Note Wound debrided: Dorsal left foot Laterality: Left Wound Grade/Stage: Saeed stage I Type of Debridement: Excisional debridement Anesthesia Used: 5% Lidocaine Gel Depth: Down to and including healthy tissue and in the subcutaneous layer Percentage of wound debrided: 100 Instrument Used: 5mm curette Tissue Removed: Fibrous, devitalized subcutaneous, biofilm, slough Severity: Fat Layer Exposed Amount of bleeding with debridement: Mild Bleeding Controlled with: Compression and gauze Patient tolerated procedure: Patient tolerated procedure well Post-Debridement Measurements and Additional Note: Post-Debridement Measurements/Treatment - Nurse 1 - General Ulcer Assessment Start: 05/28/23 07:57 Freq: Status: Active Protocol: AMEE Activity Type Activity Date Activity User E-sign Co-sign Detail Recorded Client Recorded Date Recorded By Document 05/28/23 07:57 [id number] 05/28/23 08:13 Document 06/04/23 08:11 [id number] 06/04/23 08:13 05/28/23 06/04/23 07:57 08:11 - Today's Visit Information Type of service Follow-up Visit Follow-up Visit (Physician/PAPER INSERTER (Physician/PAPER INSERTER ) ) Arrival Mode Ambulatory Ambulatory Transfer Assistance Manual Patient Identification Verified (Name & Yes Yes ) Patient Requires Transmission-Based Yes No Precautions Safety Precautions Fall Prevention Finger Stick Blood Sugar(mg/dl) (if 130 227 indicated): Blood Sugar Stated by Stated by Patient Patient Height and Weight Height 5 ft 8 in Weight 87.997 kg Weight in Pounds 194.0 lbs Weight Measurement Method Estimated by Patient Body Mass Index (BMI) 29.5 29.5 BMI Classification Overweight Overweight BSA - Deidre 2.02 Vital Signs Temperature (97.8 F-99.1 F) 95.6 F L 96.0 F L Temperature Source Temporal Temporal Pulse Rate (60-100) 96 94 Pulse Location Monitor Monitor Respiratory Rate (12-18) 16 16 Respiratory rate source Observation Observation Blood Pressure (90/60-120/80) 134/86 H 145/63 H Blood Pressure Mean (mm Hg) 102 90 Source Monitor Monitor Position Semi-Fowlers Sitting Blood Pressure Location Left Arm Left Arm History Since Last Visit- (Skip if this is Patient's initial visit) Have you changed medications since your No last visit? Any new allergies or adverse reactions No Had a fall/change in ADL's that may No increase risk of falls Signs or symptoms of abuse and/or No neglect since last visit Have you been in the hospital since your No last visit? Has dressing in place as prescribed Yes Has compression in place as prescribed N/A Has offloadiing in place as prescribed No Experienced any changes in pain level or No management Left Footwear Regular Shoe Regular Shoe Right Footwear Regular Shoe Regular Shoe Pain Scale: 0-10 Numeric Is Patient Pain Free? Yes Yes Lower Extremity Assessment/ Foot Assessment/ Toe Nail Assessment Right -Posterior Tibial Palpable Yes -Posterior Tibial Doppler Multiphasic -Dorsalis Pedis Palpable Yes -Dorsalis Pedis Doppler Multiphasic -Hair Growth on Legs No -Hair Growth on Toes No -Temperature of Extremity Warm -Capillary Refill Less than 3 Seconds Left -Posterior Tibial Palpable Yes -Posterior Tibial Doppler Multiphasic -Dorsalis Pedis Palpable Yes -Dorsalis Pedis Doppler Multiphasic -Hair Growth on Legs No -Hair Growth on Toes No -Temperature of Extremity Warm -Capillary Refill Less than 3 Seconds -Dependent Rubor No -Blanched when Elevated No Communication Assessment Primary Language North Korean Preferred language [place] Electronic Plotting System Operator Required No Able to Read Yes Able to Write Yes Communication Tools None Right Hearing Abillity Normal Left Hearing Abillity Normal Visual Assistive Devices Glasses Teaching Assessment Preferences Verbal,Written, Audio/Visual, Demonstration Barriers to Learning None Readiness To Learn Good Willingness to Engage in Self Management Med Activies Readiness to Engage in Self Management Med Activities Anxiety Level Calm Cooperation Cooperative Perception Coherent Interest in Health Problem Asks Questions Education Importance Acknowledges Need Does Patient Smoke tobacco or other No substances Smoking Status Never smoker Is Patient Diabetic Yes Functional Assessment Recent Decline in Ability to Perform Denies Any Declines Culture/Taoist/Dispatcher Automobile Rental Cultural/Taoist Needs that may affect No Treatment Plan Would you allow our hospital nuclear fuels research engineer to No meet you for the purpose of spiritual/ emotional support? Dispatcher Automobile Rental to contact place of rastafari No Teaching: Wound Center *Welcome to the Wound Center -Person Taught Patient,Family -Teaching Method Discussion, Demonstration -Response to teaching Return demonstration, Verbalize understanding WC - Nurse 1 - General Ulcer Measurement Start: 05/28/23 07:57 Freq: Status: Active Protocol: Activity Type Activity Date Activity User E-sign Co-sign Detail Recorded Client Recorded Date Recorded By Document 05/28/23 07:57 [id number] 05/28/23 08:13 Document 06/04/23 08:11 [id number] 06/04/23 08:13 05/28/23 06/04/23 07:57 08:11 Wound Center Nurse 1 3-left dorsal foot -Combined with other wound No No -Current Size (cm) - Length 2.0 2.0 -Current Size (cm) - Width 2.1 2.0 -Current Size (cm) - Depth 0.2 0.2 -Total Square Cm 4.20 4.00 -Photo Taken Yes No -Epithelialization None Present Small 1-33% -Tunneling No No -Undermining/Tunneling No No -Circular Undermining No No -Classification - Thickness Unclassifiable (Eschar Covered ) -Exudate Amt Small Small -Exudate Type Serosanguineous Serosanguineous -Wound Margin Flat & Intact Flat & Intact -Granulation Amt None Present (0 Small (1-33%) %) -Granulation Quality [place] -Slough/Fibrin Yes Yes -Necrosis Amt Large (67-100%) Large (67-100%) -Necrotic Tissue Type Adherent Slough Adherent Slough -Structure Exposed N/A N/A -Texture (Beth-wound Skin Appearance) Assessed, Assessed, Localized Edema Localized Edema -Moisture (Beth-wound Skin Appearance) Assessed,Dry/ Assessed,Dry/ Scaly Scaly -Color (Beth-wound Skin Appearance) Assessed Assessed -Temperature (Beth-wound Skin No Abnormality No Abnormality Appearance) (Pt Warm) (Pt Warm) -Tenderness on Palpation (Beth-wound No No Skin Appearance) -Ulcer Cleansing Rinsed/ Rinsed/ Irrigated with Irrigated with Saline Saline -Foul Odor after Cleansing No -Anesthetic Used 5% Lidocaine 5% Lidocaine Gel Gel Lower Limb Edema Present NA NA WC - Nurse 2 - General Ulcer CM Notes Start: 05/28/23 07:57 Freq: Status: Active Protocol: Activity Type Activity Date Activity User E-sign Co-sign Detail Recorded Client Recorded Date Recorded By Document 05/28/23 14:14 PL [id number] 05/28/23 14:15 PL 05/28/23 14:14 Wound Center Nurse 2 3-left dorsal foot -Time 08:37 -Correct Patient Yes -Correct Side, Site, Position Yes -Correct Procedure Yes -Procedure Performed Yes -Type of Procedure Debridement -Clinical Debridement Subcutaneous -Tissue Removed Subcutaneous -Post Debridement (cm) - Length 2.1 -Post Debridement (cm) - Width 2.0 -Post Debridement (cm) - Depth 0.2 -Total Square (Post) (cm) 4.20 -Area of Debridement (cm) - Length 2.1 -Area of Debridement (cm) - Width 2.0 -Total Square (Area) (cm) 4.20 -Tunneling No -Undermining/Tunneling No -Circular Undermining No -Wound/Ulcer Outcome Not Healed -Ulcer Cleansing Rinsed/ Irrigated with Saline -Foul Odor after Cleansing No -Bioengineered Tissue No -Bleeding Controlled with Pressure -Treatment Response Procedure Tolerated Well -Debridement - Subq, 1st 20sq cm Yes Pain Scale: 0-10 Numeric Is Patient Pain Free? Yes Assessment/Plan Assessment/Plan (1) Wound eschar of foot: CODE(S): R23.4 - Changes in skin texture (2) Essential hypertension: CODE(S): I10 - Essential (primary) hypertension (3) Hyperlipidemia: CODE(S): E78.5 - Hyperlipidemia, unspecified QUALIFIERS: Hyperlipidemia type: unspecified Qualified Code(s): E78.5 - Hyperlipidemia, unspecified (4) Obesity: CODE(S): E66.9 - Obesity, unspecified QUALIFIERS: Obesity classification: unspecified obesity classification Obesity type: due to excess calories Serious obesity comorbidity presence: unspecified whether serious comorbidity present Qualified Code(s): E66.09 - Other obesity due to excess calories (5) Type 2 diabetes mellitus: CODE(S): E11.9 - Type 2 diabetes mellitus without complications QUALIFIERS: Diabetes mellitus complication status: with other specified complication Diabetes mellitus custodial insulin use: without custodial use Qualified Code(s): E11.69 - Type 2 diabetes mellitus with other specified complication (6) Pain in left foot: CODE(S): M79.672 - Pain in left foot (7) Non-pressure chronic ulcer of other part of left foot with fat layer exposed: CODE(S): L97.522 - Non-pressure chronic ulcer of other part of left foot with fat layer exposed PLAN: Plan Patient seen and evaluated 5 weeks ago patient dropped hot chicken and mashed potatoes on the top of her left foot resulting in a burn to the dorsal foot with skin eschar secondary to thin skin. Wound has not progressed secondary to diabetic status. She has completed full course of Keflex. Ulceration underwent debridement as noted in the clinical panel above. Ulceration measures 2.2 cm x 2.0 cm x 0.2 cm. Ulceration does demonstrate localized rubor secondary to her burn, with improving rubor. No signs of infection. Following debridement healthy, bleeding granular tissue remained. Brianna applied to the wound base and dressed with dry sterile dressing. She is to change the dressing daily. Ulcerative site demonstrates no change versus previous visit. Recommended not using the black K tape to secure her dressings as she is having pain with changes at local skin irritation due to the adhesive. Still awaiting approval for advanced wound care product, epi fix for next visit. Last known A1c performed at [facility] 06/18/2022 was 6.1%. Discussed proper diabetic diet today to ensure tight glycemic control. Discussed she is not to be barefoot given her diabetic status indoors or outdoors. Shoe gear was encouraged to be worn at all times. Discussed that socks count is barefoot. Discussed adequate protein intake to aid in wound healing. She may take Bonifacio supplementation to aid in wound healing. The following work up and care recommendations were made: Dressing: Brianna and dry sterile dressing. Change daily. Wash: Soap and water Tissue growth optimization: Brianna Offload: Ensure shoe gear does not rub on the wound site Vascular: DP and PT pulses weakly palpable however triphasic on Doppler. Adequate capillary fill time to digits. Edema: None Infection: No signs of infection Pain: May take [id number] Tylenol for discomfort Host factors: DM type II, obesity, HTN, HLD, patient education on barefoot status encouraged shoe gear to be worn. I answered all the patient's questions. To return to the wound healing center in 1 week or call sooner if the patient has any questions or concerns.
[2023-06-11 08:05] VITALS: BP 138/82; PULSE 89; RESP 16; TEMP 36; BMI 29.5
--- NOTE | 2023-06-11 09:35 | PN.PCM_ITS ---
History of Present Illness Date of Service: 06/11/23 Chief Complaint: Nonhealing right leg ulcer. History of Wound: Ms. Red is a 78-year-old with PMHx of DM type II, A-fib, HLD, HTN, RAMESH, and obesity. She states roughly 4 weeks ago she dropped a rotisserie chicken and mashed potatoes onto the top of her left foot which resulted in significant burn to the dorsal aspect of the left foot with accompanying localized rubor. She had seen her PCP who placed her on a course of Keflex and she has finished this antibiotic to completion. She was referred to the wound care center for continued care secondary to nonhealing eschar covering the wound to the dorsal foot at the base of the third and fourth digits. Patient does state that the wound is tender to the touch. She denies any N/V/F/chills. Denies any further complaints. Subjective Subjective Patient is a 78-year-old female who follows to the wound care center with ulceration to the dorsal aspect of the left foot. She states she has been changing the dressings daily with the assistance of her granddaughter. She does admit to some tenderness about the wound site but does note redness from her burn is improving. She denies constitutional symptoms. Denies further comp laints. Objective Data Objective Data Vital Signs: Vital Signs Temp Pulse Resp BP O2 Del Method 96.8 F L 89 16 138/82 H Room Air 06/11/23 08:05 06/11/23 08:05 06/11/23 08:05 06/11/23 08:05 06/11/23 08:05 Oxygen Delivery Method Room Air Weight: 87.997 kg Body Mass Index (BMI) 29.5 Physical Exam Const alert, oriented x3, no apparent distress and well nourished General Appearance: cooperative HEENT normocephalic Eyes General Eye: normal appearance of both eyes Neck General: normal visual inspection Lymph Lymphatic: no lymphadenopathy noted and no lymphedema noted Resp normal respiratory effort Cardio regular rate and regular rhythm Extremity normal capillary refill, no joint enlargement, no calf tenderness and no pedal edema Extremity Narrative: DP and PT pulses weakly palpable. Capillary fill time is less than 4 seconds to the digits. On Doppler DP and PT are triphasic. Dermatological: There is a wound noted to the dorsal aspect of the left foot at the base of the third and fourth digits with yellow fibrotic tissue in the wound bed with localized rubor secondary to burn from hot food. Rubor is improving. No erythema, no purulent drainage, no malodor, no palpable fluctuance/bogginess, no visible abscess, no lymphangitic streaking. Surrounding skin is thin. Musculoskeletal: Muscle strength 5 of 5 age-appropriate. There is decreased range of motion of the ankle joint in dorsiflexion with the knee extended without pain or crepitus. Pain to palpation about ulcerative site. Skin no rashes or lesions noted, skin turgor normal and no jaundice Neuro moves all extremities Debridement Note Debridement Note Wound debrided: Dorsal left foot Laterality: Left Wound Grade/Stage: Saeed stage I Type of Debridement: Excisional debridement Anesthesia Used: 5% Lidocaine Gel Depth: Down to and including healthy tissue and in the subcutaneous layer Percentage of wound debrided: 100 Instrument Used: 5mm curette Tissue Removed: Fibrous, devitalized subcutaneous, biofilm, slough Severity: Fat Layer Exposed Amount of bleeding with debridement: Mild Bleeding Controlled with: Compression and gauze Patient tolerated procedure: Patient tolerated procedure well Post-Debridement Measurements and Additional Note: Post-Debridement Measurements/Treatment - Nurse 1 - General Ulcer Assessment Start: 05/28/23 07:57 Freq: Status: Active Protocol: AMEE Activity Type Activity Date Activity User E-sign Co-sign Detail Recorded Client Recorded Date Recorded By Document 05/28/23 07:57 [id number] 05/28/23 08:13 Document 06/04/23 08:11 [id number] 06/04/23 08:13 Document 06/11/23 08:05 [facility] [id number] 06/11/23 08:13 [facility] 05/28/23 06/04/23 06/11/23 07:57 08:11 08:05 - Today's Visit Information Type of service Follow-up Visit Follow-up Visit Follow-up Visit (Physician/DENITRATOR OPERATOR (Physician/DENITRATOR OPERATOR (Physician/DENITRATOR OPERATOR ) ) ) Arrival Mode Ambulatory Ambulatory Ambulatory Transfer Assistance Manual None Patient Identification Verified (Name & Yes Yes Yes ) Patient Requires Transmission-Based Yes No No Precautions Safety Precautions Fall Prevention Finger Stick Blood Sugar(mg/dl) (if 130 227 indicated): Blood Sugar Stated by Stated by Patient Patient Height and Weight Height 5 ft 8 in Weight 87.997 kg Weight in Pounds 194.0 lbs Weight Measurement Method Estimated by Patient Body Mass Index (BMI) 29.5 29.5 29.5 BMI Classification Overweight Overweight Overweight BSA - Deidre 2.02 Vital Signs Temperature (97.8 F-99.1 F) 95.6 F L 96.0 F L 96.8 F L Temperature Source Temporal Temporal Temporal Pulse Rate (60-100) 96 94 89 Pulse Location Monitor Monitor Monitor Respiratory Rate (12-18) 16 16 16 Respiratory rate source Observation Observation Observation Oxygen Delivery Method Room Air Blood Pressure (90/60-120/80) 134/86 H 145/63 H 138/82 H Blood Pressure Mean (mm Hg) 102 90 100 Source Monitor Monitor Monitor Position Semi-Fowlers Sitting Sitting Blood Pressure Location Left Arm Left Arm Left Arm History Since Last Visit- (Skip if this is Patient's initial visit) Have you changed medications since your No No last visit? Any new allergies or adverse reactions No No Had a fall/change in ADL's that may No No increase risk of falls Signs or symptoms of abuse and/or No No neglect since last visit Have you been in the hospital since your No No last visit? Has dressing in place as prescribed Yes Yes Has compression in place as prescribed N/A N/A Has offloadiing in place as prescribed No N/A Experienced any changes in pain level or No No management Left Footwear Regular Shoe Regular Shoe Regular Shoe Right Footwear Regular Shoe Regular Shoe Regular Shoe Pain Scale: 0-10 Numeric Is Patient Pain Free? Yes Yes Yes Lower Extremity Assessment/ Foot Assessment/ Toe Nail Assessment Right -Posterior Tibial Palpable Yes -Posterior Tibial Doppler Multiphasic -Dorsalis Pedis Palpable Yes -Dorsalis Pedis Doppler Multiphasic -Hair Growth on Legs No -Hair Growth on Toes No -Temperature of Extremity Warm -Capillary Refill Less than 3 Seconds Left -Posterior Tibial Palpable Yes -Posterior Tibial Doppler Multiphasic -Dorsalis Pedis Palpable Yes -Dorsalis Pedis Doppler Multiphasic -Hair Growth on Legs No -Hair Growth on Toes No -Temperature of Extremity Warm -Capillary Refill Less than 3 Seconds -Dependent Rubor No -Blanched when Elevated No Communication Assessment Primary Language Greenlandic Preferred language Greenlandic Gas Meter Installer Required No Able to Read Yes Able to Write Yes Communication Tools None Right Hearing Abillity Normal Left Hearing Abillity Normal Visual Assistive Devices Glasses Teaching Assessment Preferences Verbal,Written, Audio/Visual, Demonstration Barriers to Learning None Readiness To Learn Good Willingness to Engage in Self Management Med Activies Readiness to Engage in Self Management Med Activities Anxiety Level Calm Cooperation Cooperative Perception Coherent Interest in Health Problem Asks Questions Education Importance Acknowledges Need Does Patient Smoke tobacco or other No substances Smoking Status Never smoker Is Patient Diabetic Yes Functional Assessment Recent Decline in Ability to Perform Denies Any Declines Culture/Worship/Dog Sitter Cultural/Worship Needs that may affect No Treatment Plan Would you allow our [facility] security system sales consultant to No meet you for the purpose of spiritual/ emotional support? Dog Sitter to contact place of muslim No Teaching: Wound Center *Welcome to the Wound Center -Person Taught Patient,Family -Teaching Method Discussion, Demonstration -Response to teaching Return demonstration, Verbalize understanding WC - Nurse 1 - General Ulcer Measurement Start: 05/28/23 07:57 Freq: Status: Active Protocol: Activity Type Activity Date Activity User E-sign Co-sign Detail Recorded Client Recorded Date Recorded By Document 05/28/23 07:57 [id number] 05/28/23 08:13 Document 06/04/23 08:11 [id number] 06/04/23 08:13 Document 06/11/23 08:05 [facility] [id number] 06/11/23 08:13 [facility] 05/28/23 06/04/23 06/11/23 07:57 08:11 08:05 Wound Center Nurse 1 3-left dorsal foot -Combined with other wound No No No -Current Size (cm) - Length 2.0 2.0 2.1 -Current Size (cm) - Width 2.1 2.0 1.8 -Current Size (cm) - Depth 0.2 0.2 0.4 -Total Square Cm 4.20 4.00 3.78 -Photo Taken Yes No No -Epithelialization None Present Small 1-33% None Present -Tunneling No No No -Undermining/Tunneling No No No -Circular Undermining No No No -Classification - Thickness Unclassifiable (Eschar Covered ) -Exudate Amt Small Small Medium -Exudate Type Serosanguineous Serosanguineous Serosanguineous -Wound Margin Flat & Intact Flat & Intact Distinct, Outline Attached -Granulation Amt None Present (0 Small (1-33%) Medium (34-66%) %) -Granulation Quality [place] -Slough/Fibrin Yes Yes Yes -Necrosis Amt Large (67-100%) Large (67-100%) Medium (34-66%) -Necrotic Tissue Type Adherent Slough Adherent Slough Adherent Slough -Structure Exposed N/A N/A -Texture (Beth-wound Skin Appearance) Assessed, Assessed, Assessed, Localized Edema Localized Edema Scarring -Moisture (Beth-wound Skin Appearance) Assessed,Dry/ Assessed,Dry/ Assessed Scaly Scaly -Color (Beth-wound Skin Appearance) Assessed Assessed Assessed -Temperature (Beth-wound Skin No Abnormality No Abnormality No Abnormality Appearance) (Pt Warm) (Pt Warm) (Pt Warm) -Tenderness on Palpation (Beth-wound No No No Skin Appearance) -Ulcer Cleansing Rinsed/ Rinsed/ Soap and Water Irrigated with Irrigated with Saline Saline -Foul Odor after Cleansing No No -Anesthetic Used 5% Lidocaine 5% Lidocaine 5% Lidocaine Gel Gel Gel Lower Limb Edema Present NA NA Yes Left Calf (cm) 37.6 Left Ankle (cm) 22.8 WC - Nurse 2 - General Ulcer CM Notes Start: 05/28/23 07:57 Freq: Status: Active Protocol: Activity Type Activity Date Activity User E-sign Co-sign Detail Recorded Client Recorded Date Recorded By Document 05/28/23 14:14 [id number] 05/28/23 14:15 PL Document 06/04/23 12:12 [id number] 06/04/23 12:12 PL 05/28/23 06/04/23 14:14 12:12 Wound Center Nurse 2 3-left dorsal foot -Time 08:37 08:39 -Correct Patient Yes Yes -Correct Side, Site, Position Yes Yes -Correct Procedure Yes Yes -Procedure Performed Yes Yes -Type of Procedure Debridement Debridement -Clinical Debridement Subcutaneous Subcutaneous -Tissue Removed Subcutaneous Subcutaneous -Post Debridement (cm) - Length 2.1 2.2 -Post Debridement (cm) - Width 2.0 2.0 -Post Debridement (cm) - Depth 0.2 0.2 -Total Square (Post) (cm) 4.20 4.40 -Area of Debridement (cm) - Length 2.1 2.2 -Area of Debridement (cm) - Width 2.0 2.0 -Total Square (Area) (cm) 4.20 4.40 -Tunneling No No -Undermining/Tunneling No No -Circular Undermining No No -Wound/Ulcer Outcome Not Healed Not Healed -Ulcer Cleansing Rinsed/ Rinsed/ Irrigated with Irrigated with Saline Saline -Foul Odor after Cleansing No No -Bioengineered Tissue No No -Bleeding Controlled with Pressure Pressure -Treatment Response Procedure Procedure Tolerated Well Tolerated Well -Debridement - Subq, 1st 20sq cm Yes Yes Pain Scale: 0-10 Numeric Is Patient Pain Free? Yes Yes - Nurse 3 - General Ulcer D/C NN Start: 05/28/23 07:57 Freq: Status: Active Protocol: Activity Type Activity Date Activity User E-sign Co-sign Detail Recorded Client Recorded Date Recorded By Document 06/04/23 08:56 [id number] 06/04/23 08:56 Document 06/11/23 09:01 [facility] [id number] 06/11/23 09:03 [facility] 06/04/23 06/11/23 08:56 09:01 Wound Care Center Nurse 3 3-left dorsal foot -Ulcer Cleansing Rinsed/ Irrigated with Saline -Foul Odor after Cleansing No -Primary Dressing Applied Promogran Brianna Matter -Other Dressing epifix -Primary Dressing Covered/Secured with Dry Gauze, Dry Gauze & Secured with Roll Gauze, Tape Secured with Tape -Other Covering abd -Promogran Brianna Matter 1 Treatment Response Procedure Tolerated Well Pain Scale: 0-10 Numeric Is Patient Pain Free? Yes Yes - Visit Discharge Discharge Condition Stable Stable Ambulatory Status Ambulatory Ambulatory Transportation Private Auto Private Auto Accompanied by granddaughter janine Medication Reconcilliation completed & Yes provided to patient/care provider Clinical Summary of Care Provided Yes Assessment/Plan Assessment/Plan (1) Wound eschar of foot: CODE(S): R23.4 - Changes in skin texture (2) Essential hypertension: CODE(S): I10 - Essential (primary) hypertension (3) Hyperlipidemia: CODE(S): E78.5 - Hyperlipidemia, unspecified QUALIFIERS: Hyperlipidemia type: unspecified Qualified Code(s): E78.5 - Hyperlipidemia, unspecified (4) Obesity: CODE(S): E66.9 - Obesity, unspecified QUALIFIERS: Obesity type: due to excess calories Obesity classification: unspecified obesity classification Serious obesity comorbidity presence: unspecified whether serious comorbidity present Qualified Code(s): E6 6.09 - Other obesity due to excess calories (5) Type 2 diabetes mellitus: CODE(S): E11.9 - Type 2 diabetes mellitus without complications QUALIFIERS: Diabetes mellitus complication status: with other specified complication Diabetes mellitus exterminator helper insulin use: without exterminator helper use Qualified Code(s): E11.69 - Type 2 diabetes mellitus with other specified complication (6) Pain in left foot: CODE(S): M79.672 - Pain in left foot (7) Non-pressure chronic ulcer of other part of left foot with fat layer exposed: CODE(S): L97.522 - Non-pressure chronic ulcer of other part of left foot with fat layer exposed PLAN: Plan Patient seen and evaluated 6 weeks ago patient dropped hot chicken and mashed potatoes on the top of her left foot resulting in a burn to the dorsal foot with skin eschar secondary to thin skin. Wound has not progressed secondary to diabetic status. She has completed full course of Keflex. Ulceration underwent debridement as noted in the clinical panel above. U lceration measures 2.0 cm x 2.0 cm x 0.4 cm. Ulceration does demonstrate localized rubor secondary to her burn, with improving rubor. No signs of infection. Following debridement healthy, bleeding granular tissue remained. Epifix graft #1 applied to the wound base and dressed with Adaptic touch and anchored with Steri-Strips, dressed with dry sterile dressing. She is to change the outer dressing as needed. She was instructed to not get the dressings wet. Ulcerative site demonstrates slight improvement versus previous visit. Recommended not using the black K tape to secure her dressings as she is having pain with changes at local skin irritation due to the adhesive. She was approved for advanced wound care product, epi fix. Last known A1c performed at [facility] 06/18/2022 was 6.1%. Discussed proper diabetic diet to ensure tight glycemic control. Discussed she is not to be barefoot given her diabetic status indoors or outdoors. Shoe gear was encouraged to be worn at all times. Discussed that socks count is barefoot. Discussed adequate protein intake to aid in wound healing. She may take Bonifacio supplementation to aid in wound healing. The following work up and care recommendations were made: Dressing: EpiFix, Adaptic touch, Steri-Strips, dry sterile dressing. Change outer dressings as needed. Wash: Do not get wet Tissue growth optimization: EpiFix Offload: Ensure shoe gear does not rub on the wound site Vascular: DP and PT pulses weakly palpable however triphasic on Doppler. Adequate capillary fill time to digits. Edema: None Infection: No signs of infection Pain: May take [id number] Tylenol for discomfort Host factors: DM type II, obesity, HTN, HLD, patient education on barefoot status encouraged shoe gear to be worn. I answered all the patient's questions. To return to the wound healing center in 1 week or call sooner if the patient has any questions or concerns.
[2023-06-18 08:21] VITALS: BP 146/88; PULSE 94; RESP 18; TEMP 35.9; BMI 29.5
--- NOTE | 2023-06-18 09:32 | PCM.WC.PN ---
History of Present Illness Date of Service: 06/18/23 Chief Complaint: Nonhealing right leg ulcer. History of Wound: Ms. Red is a 78-year-old with PMHx of DM type II, A-fib, HLD, HTN, RAMESH, and obesity. She states roughly 4 weeks ago she dropped a rotisserie chicken and mashed potatoes onto the top of her left foot which resulted in significant burn to the dorsal aspect of the left foot with accompanying localized rubor. She had seen her PCP who placed her on a course of Keflex and she has finished this antibiotic to completion. She was referred to the wound care center for continued care secondary to nonhealing eschar covering the wound to the dorsal foot at the base of the third and fourth digits. Patient does state that the wound is tender to the touch. She denies any N/V/F/chills. Denies any further complaints. Subjective Subjective Patient is a 78-year-old female who follows to the wound care center with ulceration to the dorsal aspect of the left foot. She states she has been changing the outer dressings daily with the assistance of her granddaughter. She does admit to some tenderness about the wound site. She denies constitutional symptoms. Denies further complaints. Objective Data Objective Data Vital Signs: Vital Signs Temp Pulse Resp BP O2 Del Method 96.6 F L 94 18 146/88 H Room Air 06/18/23 08:21 06/18/23 08:21 06/18/23 08:21 06/18/23 08:21 06/11/23 08:05 Oxygen Delivery Method Room Air Weight: 87.997 kg Body Mass Index (BMI) 29.5 Physical Exam Const alert, oriented x3, no apparent distress and well nourished General Appearance: cooperative HEENT normocephalic Eyes General Eye: normal appearance of both eyes Neck General: normal visual inspection Lymph Lymphatic: no lymphadenopathy noted and no lymphedema noted Resp normal respiratory effort Cardio regular rate and regular rhythm Extremity normal capillary refill, no joint enlargement, no calf tenderness and no pedal edema Extremity Narrative: DP and PT pulses weakly palpable. Capillary fill time is less than 4 seconds to the digits. On Doppler DP and PT are triphasic. Dermatological: There is a wound noted to the dorsal aspect of the left foot at the base of the third and fourth digits with yellow fibrotic tissue in the wound bed with localized rubor secondary to burn from hot food. Rubor resolved. No erythema, no purulent drainage, no malodor, no palpable fluctuance/bogginess, no visible abscess, no lymphangitic streaking. Surrounding skin is thin. Musculoskeletal: Muscle strength 5 of 5 age-appropriate. There is decreased range of motion of the ankle joint in dorsiflexion with the knee extended without pain or crepitus. Pain to palpation about ulcerative site. Skin no rashes or lesions noted, skin turgor normal and no jaundice Neuro moves all extremities Debridement Note Debridement Note Wound debrided: Left dorsal foot Laterality: Left Wound Grade/Stage: Saeed stage I Type of Debridement: Excisional debridement Anesthesia Used: 5% Lidocaine Gel Depth: Down to and including healthy tissue and in the subcutaneous layer Percentage of wound debrided: 100 Instrument Used: 5mm curette Tissue Removed: Fibrous, devitalized subcutaneous, biofilm, slough Severity: Fat Layer Exposed Amount of bleeding with debridement: Mild Bleeding Controlled with: Compression and gauze Patient tolerated procedure: Patient tolerated procedure well Post-Debridement Measurements and Additional Note: Post-Debridement Measurements/Treatment - Nurse 1 - General Ulcer Assessment Start: 05/28/23 07:57 Freq: Status: Active Protocol: AMEE Activity Type Activity Date Activity User E-sign Co-sign Detail Recorded Client Recorded Date Recorded By Document 05/28/23 07:57 [id number] 05/28/23 08:13 Document 06/04/23 08:11 [id number] 06/04/23 08:13 Document 06/11/23 08:05 [facility] [id number] 06/11/23 08:13 [facility] Document 06/18/23 08:21 DL [id number] 06/18/23 08:28 DL 05/28/23 06/04/23 06/11/23 07:57 08:11 08:05 - Today's Visit Information Type of service Follow-up Visit Follow-up Visit Follow-up Visit (Physician/SHIPPING AND RECEIVING SUPERVISOR (Physician/SHIPPING AND RECEIVING SUPERVISOR (Physician/SHIPPING AND RECEIVING SUPERVISOR ) ) ) Arrival Mode Ambulatory Ambulatory Ambulatory Transfer Assistance Manual None Patient Identification Verified (Name & Yes Yes Yes ) Patient Requires Transmission-Based Yes No No Precautions Safety Precautions Fall Prevention Finger Stick Blood Sugar(mg/dl) (if 130 227 indicated): Blood Sugar Stated by Stated by Patient Patient Height and Weight Height 5 ft 8 in Weight 87.997 kg Weight in Pounds 194.0 lbs Weight Measurement Method Estimated by Patient Body Mass Index (BMI) 29.5 29.5 29.5 BMI Classification Overweight Overweight Overweight BSA - [place]re 2.02 Vital Signs Temperature (97.8 F-99.1 F) 95.6 F L 96.0 F L 96.8 F L Temperature Source Temporal Temporal Temporal Pulse Rate (60-100) 96 94 89 Pulse Location Monitor Monitor Monitor Respiratory Rate (12-18) 16 16 16 Respiratory rate source Observation Observation Observation Oxygen Delivery Method Room Air Blood Pressure (90/60-120/80) 134/86 H 145/63 H 138/82 H Blood Pressure Mean (mm Hg) 102 90 100 Source Monitor Monitor Monitor Position Semi-Fowlers Sitting Sitting Blood Pressure Location Left Arm Left Arm Left Arm History Since Last Visit- (Skip if this is Patient's initial visit) Have you changed medications since your No No last visit? Any new allergies or adverse reactions No No Had a fall/change in ADL's that may No No increase risk of falls Signs or symptoms of abuse and/or No No neglect since last visit Have you been in the hospital since your No No last visit? Has dressing in place as prescribed Yes Yes Has compression in place as prescribed N/A N/A Has offloadiing in place as prescribed No N/A Experienced any changes in pain level or No No management Left Footwear Regular Shoe Regular Shoe Regular Shoe Right Footwear Regular Shoe Regular Shoe Regular Shoe Pain Scale: 0-10 Numeric Is Patient Pain Free? Yes Yes Yes Lower Extremity Assessment/ Foot Assessment/ Toe Nail Assessment Right -Posterior Tibial Palpable Yes -Posterior Tibial Doppler Multiphasic -Dorsalis Pedis Palpable Yes -Dorsalis Pedis Doppler Multiphasic -Hair Growth on Legs No -Hair Growth on Toes No -Temperature of Extremity Warm -Capillary Refill Less than 3 Seconds Left -Posterior Tibial Palpable Yes -Posterior Tibial Doppler Multiphasic -Dorsalis Pedis Palpable Yes -Dorsalis Pedis Doppler Multiphasic -Hair Growth on Legs No -Hair Growth on Toes No -Temperature of Extremity Warm -Capillary Refill Less than 3 Seconds -Dependent Rubor No -Blanched when Elevated No Communication Assessment Primary Language Wallisian Preferred language [place] Attendant Required No Able to Read Yes Able to Write Yes Communication Tools None Right Hearing Abillity Normal Left Hearing Abillity Normal Visual Assistive Devices Glasses Teaching Assessment Preferences Verbal,Written, Audio/Visual, Demonstration Barriers to Learning None Readiness To Learn Good Willingness to Engage in Self Management Med Activies Readiness to Engage in Self Management Med Activities Anxiety Level Calm Cooperation Cooperative Perception Coherent Interest in Health Problem Asks Questions Education Importance Acknowledges Need Does Patient Smoke tobacco or other No substances Smoking Status Never smoker Is Patient Diabetic Yes Functional Assessment Recent Decline in Ability to Perform Denies Any Declines Culture/Synagogue/Time Analysis Clerk Cultural/Synagogue Needs that may affect No Treatment Plan Would you allow our hospital pest management supervisor to No meet you for the purpose of spiritual/ emotional support? Time Analysis Clerk to contact place of [employer] No Teaching: Wound Center *Welcome to the Wound Center -Person Taught Patient,Family -Teaching Method Discussion, Demonstration -Response to teaching Return demonstration, Verbalize understanding 06/18/23 08:21 WC - Today's Visit Information Type of service Follow-up Visit (Physician/SHIPPING AND RECEIVING SUPERVISOR ) Arrival Mode Ambulatory Transfer Assistance None Patient Identification Verified (Name & Yes ) Patient Requires Transmission-Based No Precautions Safety Precautions Finger Stick Blood Sugar(mg/dl) (if indicated): Blood Sugar Height and Weight Height Weight Weight in Pounds Weight Measurement Method Body Mass Index (BMI) 29.5 BMI Classification Overweight [facility] - [place] Vital Signs Temperature (97.8 F-99.1 F) 96.6 F L Temperature Source Temporal Pulse Rate (60-100) 94 Pulse Location Monitor Respiratory Rate (12-18) 18 Respiratory rate source Observation Oxygen Delivery Method Blood Pressure (90/60-120/80) 146/88 H Blood Pressure Mean (mm Hg) 107 Source Monitor Position Blood Pressure Location History Since Last Visit- (Skip if this is Patient's initial visit) Have you changed medications since your No last visit? Any new allergies or adverse reactions No Had a fall/change in ADL's that may No increase risk of falls Signs or symptoms of abuse and/or No neglect since last visit Have you been in the hospital since your No last visit? Has dressing in place as prescribed Yes Has compression in place as prescribed N/A Has offloadiing in place as prescribed Yes Experienced any changes in pain level or No management Left Footwear Right Footwear Pain Scale: 0-10 Numeric Is Patient Pain Free? Yes Lower Extremity Assessment/ Foot Assessment/ Toe Nail Assessment Right -Posterior Tibial Palpable -Posterior Tibial Doppler -Dorsalis Pedis Palpable -Dorsalis Pedis Doppler -Hair Growth on Legs -Hair Growth on Toes -Temperature of Extremity -Capillary Refill Left -Posterior Tibial Palpable -Posterior Tibial Doppler -Dorsalis Pedis Palpable -Dorsalis Pedis Doppler -Hair Growth on Legs -Hair Growth on Toes -Temperature of Extremity -Capillary Refill -Dependent Rubor -Blanched when Elevated Communication Assessment Primary Language Preferred sign language instructor Required Able to Read Able to Write Communication Tools Right Hearing Abillity Left Hearing Abillity Visual Assistive Devices Teaching Assessment Preferences Barriers to Learning Readiness To Learn Willingness to Engage in Self Management Activies Readiness to Engage in Self Management Activities Anxiety Level Cooperation Perception Interest in Health Problem Education Importance Does Patient Smoke tobacco or other substances Smoking Status Is Patient Diabetic Functional Assessment Recent Decline in Ability to Perform Culture/Synagogue/Time Analysis Clerk Cultural/Synagogue Needs that may affect Treatment Plan Would you allow our hospital pest management supervisor to meet you for the purpose of spiritual/ emotional support? Time Analysis Clerk to contact place of [employer] Teaching: Wound Center *Welcome to the Wound Center -Person Taught -Teaching Method -Response to teaching WC - Nurse 1 - General Ulcer Measurement Start: 05/28/23 07:57 Freq: Status: Active Protocol: Activity Type Activity Date Activity User E-sign Co-sign Detail Recorded Client Recorded Date Recorded By Document 05/28/23 07:57 [id number] 05/28/23 08:13 Document 06/04/23 08:11 [id number] 06/04/23 08:13 Document 06/11/23 08:05 [facility] [id number] 06/11/23 08:13 [facility] Document 06/18/23 08:21 DL [id number] 06/18/23 08:28 DL 05/28/23 06/04/23 06/11/23 07:57 08:11 08:05 Wound Center Nurse 1 3-left dorsal foot -Combined with other wound No No No -Current Size (cm) - Length 2.0 2.0 2.1 -Current Size (cm) - Width 2.1 2.0 1.8 -Current Size (cm) - Depth 0.2 0.2 0.4 -Total Square Cm 4.20 4.00 3.78 -Photo Taken Yes No No -Epithelialization None Present Small 1-33% None Present -Tunneling No No No -Undermining/Tunneling No No No -Circular Undermining No No No -Classification - Thickness Unclassifiable (Eschar Covered ) -Exudate Amt Small Small Medium -Exudate Type Serosanguineous Serosanguineous Serosanguineous -Wound Margin Flat & Intact Flat & Intact Distinct, Outline Attached -Granulation Amt None Present (0 Small (1-33%) Medium (34-66%) %) -Granulation Quality [place] -Slough/Fibrin Yes Yes Yes -Necrosis Amt Large (67-100%) Large (67-100%) Medium (34-66%) -Necrotic Tissue Type Adherent Slough Adherent Slough Adherent Slough -Structure Exposed N/A N/A -Texture (Beth-wound Skin Appearance) Assessed, Assessed, Assessed, Localized Edema Localized Edema Scarring -Moisture (Beth-wound Skin Appearance) Assessed,Dry/ Assessed,Dry/ Assessed Scaly Scaly -Color (Beth-wound Skin Appearance) Assessed Assessed Assessed -Temperature (Beth-wound Skin No Abnormality No Abnormality No Abnormality Appearance) (Pt Warm) (Pt Warm) (Pt Warm) -Tenderness on Palpation (Beth-wound No No No Skin Appearance) -Ulcer Cleansing Rinsed/ Rinsed/ Soap and Water Irrigated with Irrigated with Saline Saline -Foul Odor after Cleansing No No -Anesthetic Used 5% Lidocaine 5% Lidocaine 5% Lidocaine Gel Gel Gel Lower Limb Edema Present NA NA Yes Left Calf (cm) 37.6 Left Ankle (cm) 22.8 06/18/23 08:21 Wound Center Nurse 1 3-left dorsal foot -Combined with other wound -Current Size (cm) - Length 2 -Current Size (cm) - Width 1.8 -Current Size (cm) - Depth 0.5 -Total Square Cm 3.6 -Photo Taken -Epithelialization -Tunneling -Undermining/Tunneling -Circular Undermining -Classification - Thickness -Exudate Amt Medium -Exudate Type Serosanguineous -Wound Margin Distinct, Outline Attached -Granulation Amt Medium (34-66%) -Granulation Quality Red -Slough/Fibrin -Necrosis Amt Medium (34-66%) -Necrotic Tissue Type Adherent Slough -Structure Exposed -Texture (Beth-wound Skin Appearance) Scarring -Moisture (Beth-wound Skin Appearance) No Abnormality -Color (Beth-wound Skin Appearance) Erythema -Temperature (Beth-wound Skin No Abnormality Appearance) (Pt Warm) -Tenderness on Palpation (Beth-wound No Skin Appearance) -Ulcer Cleansing Soap and Water -Foul Odor after Cleansing No -Anesthetic Used 5% Lidocaine Gel Lower Limb Edema Present Left Calf (cm) Left Ankle (cm) WC - Nurse 2 - General Ulcer CM Notes Start: 05/28/23 07:57 Freq: Status: Active Protocol: Activity Type Activity Date Activity User E-sign Co-sign Detail Recorded Client Recorded Date Recorded By Document 05/28/23 14:14 PL [id number] 05/28/23 14:15 PL Document 06/04/23 12:12 PL [id number] 06/04/23 12:12 PL Document 06/11/23 12:39 PL [id number] 06/11/23 12:42 PL Document 06/18/23 09:21 PL [id number] 06/18/23 09:24 PL 05/28/23 06/04/23 06/11/23 14:14 12:12 12:39 Wound Center Nurse 2 3-left dorsal foot -Time 08:37 08:39 08:39 -Correct Patient Yes Yes Yes -Correct Side, Site, Position Yes Yes Yes -Correct Procedure Yes Yes Yes -Procedure Performed Yes Yes Yes -Type of Procedure Debridement Debridement Debridement -Clinical Debridement Subcutaneous Subcutaneous Subcutaneous -Tissue Removed Subcutaneous Subcutaneous Subcutaneous -Post Debridement (cm) - Length 2.1 2.2 2.1 -Post Debridement (cm) - Width 2.0 2.0 1.8 -Post Debridement (cm) - Depth 0.2 0.2 0.4 -Total Square (Post) (cm) 4.20 4.40 3.78 -Area of Debridement (cm) - Length 2.1 2.2 2.1 -Area of Debridement (cm) - Width 2.0 2.0 1.8 -Total Square (Area) (cm) 4.20 4.40 3.78 -Tunneling No No No -Undermining/Tunneling No No No -Circular Undermining No No No -Wound/Ulcer Outcome Not Healed Not Healed Not Healed -Ulcer Cleansing Rinsed/ Rinsed/ Rinsed/ Irrigated with Irrigated with Irrigated with Saline Saline Saline -Foul Odor after Cleansing No No No -Bioengineered Tissue No No Yes -Type of Bioengineered Tissue Epifix -Expiration Date 01/25/28 -Product Lot Number [id number] -Percent Used 100 -Bleeding Controlled with Pressure Pressure Pressure -Treatment Response Procedure Procedure Procedure Tolerated Well Tolerated Well Tolerated Well -Debridement - Subq, 1st 20sq cm Yes Yes No -Apply Skin Sub - 1st 25 sq cm - Feet 1 -Epifix (per sq cm) 4 Pain Scale: 0-10 Numeric Is Patient Pain Free? Yes Yes Yes 06/18/23 09:21 Wound Center Nurse 2 3-left dorsal foot -Time 08:45 -Correct Patient Yes -Correct Side, Site, Position Yes -Correct Procedure Yes -Procedure Performed Yes -Type of Procedure Debridement -Clinical Debridement Subcutaneous -Tissue Removed Subcutaneous -Post Debridement (cm) - Length 2.0 -Post Debridement (cm) - Width 1.6 -Post Debridement (cm) - Depth 0.3 -Total Square (Post) (cm) 3.20 -Area of Debridement (cm) - Length 2.0 -Area of Debridement (cm) - Width 1.6 -Total Square (Area) (cm) 3.20 -Tunneling No -Undermining/Tunneling No -Circular Undermining No -Wound/Ulcer Outcome Not Healed -Ulcer Cleansing Rinsed/ Irrigated with Saline -Foul Odor after Cleansing -Bioengineered Tissue Yes -Type of Bioengineered Tissue Epifix -Expiration Date 01/25/28 -Product Lot Number [id number] -Percent Used 100 -Bleeding Controlled with Pressure -Treatment Response Procedure Tolerated Well -Debridement - Subq, 1st 20sq cm No -Apply Skin Sub - 1st 25 sq cm - Feet 1 -Epifix (per sq cm) 4 Pain Scale: 0-10 Numeric Is Patient Pain Free? Yes - Nurse 3 - General Ulcer D/C NN Start: 05/28/23 07:57 Freq: Status: Active Protocol: Activity Type Activity Date Activity User E-sign Co-sign Detail Recorded Client Recorded Date Recorded By Document 06/04/23 08:56 [email or web address] [id number] 06/04/23 08:56 JF Document 06/11/23 09:01 [facility] [id number] 06/11/23 09:03 BMF 06/04/23 06/11/23 08:56 09:01 Wound Care Center Nurse 3 3-left dorsal foot -Ulcer Cleansing Rinsed/ Irrigated with Saline -Foul Odor after Cleansing No -Primary Dressing Applied Promogran Brianna Matter -Other Dressing epifix -Primary Dressing Covered/Secured with Dry Gauze, Dry Gauze & Secured with Roll Gauze, Tape Secured with Tape -Other Covering abd -Promogran Brianna Matter 1 Treatment Response Procedure Tolerated Well Pain Scale: 0-10 Numeric Is Patient Pain Free? Yes Yes WC - Visit Discharge Discharge Condition Stable Stable Ambulatory Status Ambulatory Ambulatory Transportation Private Auto Private Auto Accompanied by granddaughter janine Medication Reconcilliation completed & Yes provided to patient/care provider Clinical Summary of Care Provided Yes Assessment/Plan Assessment/Plan (1) Wound eschar of foot: CODE(S): R23.4 - Changes in skin texture (2) Essential hypertension: CODE(S): I10 - Essential (primary) hypertension (3) Hyperlipidemia: CODE(S): E78.5 - Hyperlipidemia, unspecified QUALIFIERS: Hyperlipidemia type: unspecified Qualified Code(s): E78.5 - Hyperlipidemia, unspecified (4) Obesity: CODE(S): E66.9 - Obesity, unspecified QUALIFIERS: Obesity type: due to excess calories Obesity classification: unspecified obesity classification Serious obesity comorbidity presence: unspecified whether serious comorbidity present Qualified Code(s): E66.09 - Other obesity due to excess calories (5) Type 2 diabetes mellitus: CODE(S): E11.9 - Type 2 diabetes mellitus without complications QUALIFIERS: Diabetes mellitus complication status: with other specified complication Diabetes mellitus buttermaker helper insulin use: without buttermaker helper use Qualified Code(s): E11.69 - Type 2 diabetes mellitus with other specified complication (6) Pain in left foot: CODE(S): M79.672 - Pain in left foot (7) Non-pressure chronic ulcer of other part of left foot with fat layer exposed: CODE(S): L97.522 - Non-pressure chronic ulcer of other part of left foot with fat layer exposed PLAN: Plan Patient seen and evaluated 7 weeks ago patient dropped hot chicken and mashed potatoes on the top of her left foot resulting in a burn to the dorsal foot with skin eschar secondary to thin skin. Wound has not progressed secondary to diabetic status. She has completed full course of Keflex. Ulceration underwent debridement as noted in the clinical panel above. Ulceration measures 2.0 cm x 1.6 cm x 0.4 cm. Ulceration does demonstrate localized rubor secondary to her burn, with improving rubor. No signs of infection. Following debridement healthy, bleeding granular tissue remained. Epifix graft #2 applied to the wound base and dressed with Adaptic touch and anchored with Steri-Strips, dressed with dry sterile dressing. She is to change the outer dressing as needed. She was instructed to not get the dressings wet. Ulcerative site demonstrates improvement versus previous visit. She was approved for advanced wound care product, epi fix. We will continue application. Last known A1c performed at [facility] 06/18/2022 was 6.1%. Discussed proper diabetic diet to ensure tight glycemic control. Discussed she is not to be barefoot given her diabetic status indoors or outdoors. Shoe gear was encouraged to be worn at all times. Discussed that socks count is barefoot. Discussed adequate protein intake to aid in wound healing. She may take Bonifacio supplementation to aid in wound healing. The following work up and care recommendations were made: Dressing: EpiFix, Adaptic touch, Steri-Strips, dry sterile dressing. Change outer dressings as needed. Wash: Do not get wet Tissue growth optimization: EpiFix Offload: Ensure shoe gear does not rub on the wound site Vascular: DP and PT pulses weakly palpable however triphasic on Doppler. Adequate capillary fill time to digits. Edema: None Infection: No signs of infection Pain: May take [id number] Tylenol for discomfort Host factors: DM type II, obesity, HTN, HLD, patient education on barefoot status encouraged shoe gear to be worn. I answered all the patient's questions. To return to the wound healing center in 1 week or call sooner if the patient has any questions or concerns.
[2023-06-25 08:04] VITALS: BP 147/94; PULSE 90; RESP 20; TEMP 36.3; BMI 29.5
--- NOTE | 2023-06-25 08:27 | PCM.WC.PN ---
History of Present Illness Date of Service: 06/25/23 Chief Complaint: Nonhealing right leg ulcer. History of Wound: Ms. Red is a 78-year-old with PMHx of DM type II, A-fib, HLD, HTN, RAMESH, and obesity. She states roughly 4 weeks ago she dropped a rotisserie chicken and mashed potatoes onto the top of her left foot which resulted in significant burn to the dorsal aspect of the left foot with accompanying localized rubor. She had seen her PCP who placed her on a course of Keflex and she has finished this antibiotic to completion. She was referred to the wound care center for continued care secondary to nonhealing eschar covering the wound to the dorsal foot at the base of the third and fourth digits. Patient does state that the wound is tender to the touch. She denies any N/V/F/chills. Denies any further complaints. Subjective Subjective Patient is a 78-year-old female who follows to the wound care center with ulceration to the dorsal aspect of the left foot. She states she has been changing the outer dressings daily with the assistance of her granddaughter. Daughter accompanies her today and states she is seeing improvement in the wound. She denies constitutional symptoms. Denies further complaints. Objective Data Objective Data Vital Signs: Vital Signs Temp Pulse Resp BP O2 Del Method 97.4 F L 90 20 H 147/94 H Room Air 06/25/23 08:04 06/25/23 08:04 06/25/23 08:04 06/25/23 08:04 06/11/23 08:05 Oxygen Delivery Method Room Air Weight: 87.997 kg Body Mass Index (BMI) 29.5 Physical Exam Const alert, oriented x3, no apparent distress and well nourished General Appearance: cooperative HEENT normocephalic Eyes General Eye: normal appearance of both eyes Neck General: normal visual inspection Lymph Lymphatic: no lymphadenopathy noted and no lymphedema noted Resp normal respiratory effort Cardio regular rate and regular rhythm Extremity normal capillary refill, no joint enlargement, no calf tenderness and no pedal edema Extremity Narrative: DP and PT pulses weakly palpable. Capillary fill time is less than 4 seconds to the digits. On Doppler DP and PT are triphasic. Dermatological: There is a wound noted to the dorsal aspect of the left foot at the base of the third and fourth digits with yellow fibrotic tissue in the wound bed with localized rubor secondary to burn from hot food. Rubor resolved. No erythema, no purulent drainage, no malodor, no palpable fluctuance/bogginess, no visible abscess, no lymphangitic streaking. Surrounding skin is thin. Musculoskeletal: Muscle strength 5 of 5 age-appropriate. There is decreased range of motion of the ankle joint in dorsiflexion with the knee extended without pain or crepitus. Pain to palpation about ulcerative site. Skin no rashes or lesions noted, skin turgor normal and no jaundice Neuro moves all extremities Debridement Note Debridement Note Wound debrided: Dorsal left foot Laterality: Left Wound Grade/Stage: Saeed stage I Type of Debridement: Excisional debridement Anesthesia Used: 5% Lidocaine Gel Depth: Down to and including healthy tissue and in the subcutaneous layer Percentage of wound debrided: 100 Instrument Used: 5mm curette Tissue Removed: Fibrous, devitalized subcutaneous, biofilm, slough Severity: Fat Layer Exposed Amount of bleeding with debridement: Mild Bleeding Controlled with: Compression and gauze Patient tolerated procedure: Patient tolerated procedure well Post-Debridement Measurements and Additional Note: Post-Debridement Measurements/Treatment - Nurse 1 - General Ulcer Assessment Start: 05/28/23 07:57 Freq: Status: Active Protocol: AMEE Activity Type Activity Date Activity User E-sign Co-sign Detail Recorded Client Recorded Date Recorded By Document 05/28/23 07:57 [id number] 05/28/23 08:13 Document 06/04/23 08:11 [id number] 06/04/23 08:13 Document 06/11/23 08:05 [facility] [id number] 06/11/23 08:13 [facility] Document 06/18/23 08:21 DL [id number] 06/18/23 08:28 DL Document 06/25/23 08:04 DL [id number] 06/25/23 08:11 DL 05/28/23 06/04/23 06/11/23 07:57 08:11 08:05 - Today's Visit Information Type of service Follow-up Visit Follow-up Visit Follow-up Visit (Physician/LUNCHEONETTE MANAGER (Physician/LUNCHEONETTE MANAGER (Physician/LUNCHEONETTE MANAGER ) ) ) Arrival Mode Ambulatory Ambulatory Ambulatory Transfer Assistance Manual None Patient Identification Verified (Name & Yes Yes Yes ) Patient Requires Transmission-Based Yes No No Precautions Safety Precautions Fall Prevention Finger Stick Blood Sugar(mg/dl) (if 130 227 indicated): Blood Sugar Stated by Stated by Patient Patient Height and Weight Height 5 ft 8 in Weight 87.997 kg Weight in Pounds 194.0 lbs Weight Measurement Method Estimated by Patient Body Mass Index (BMI) 29.5 29.5 29.5 BMI Classification Overweight Overweight Overweight BSA - [place] 2.02 Vital Signs Temperature (97.8 F-99.1 F) 95.6 F L 96.0 F L 96.8 F L Temperature Source Temporal Temporal Temporal Pulse Rate (60-100) 96 94 89 Pulse Location Monitor Monitor Monitor Respiratory Rate (12-18) 16 16 16 Respiratory rate source Observation Observation Observation Oxygen Delivery Method Room Air Blood Pressure (90/60-120/80) 134/86 H 145/63 H 138/82 H Blood Pressure Mean (mm Hg) 102 90 100 Source Monitor Monitor Monitor Position Semi-Fowlers Sitting Sitting Blood Pressure Location Left Arm Left Arm Left Arm History Since Last Visit- (Skip if this is Patient's initial visit) Have you changed medications since your No No last visit? Any new allergies or adverse reactions No No Had a fall/change in ADL's that may No No increase risk of falls Signs or symptoms of abuse and/or No No neglect since last visit Have you been in the hospital since your No No last visit? Has dressing in place as prescribed Yes Yes Has compression in place as prescribed N/A N/A Has offloadiing in place as prescribed No N/A Experienced any changes in pain level or No No management Left Footwear Regular Shoe Regular Shoe Regular Shoe Right Footwear Regular Shoe Regular Shoe Regular Shoe Pain Scale: 0-10 Numeric Is Patient Pain Free? Yes Yes Yes Lower Extremity Assessment/ Foot Assessment/ Toe Nail Assessment Right -Posterior Tibial Palpable Yes -Posterior Tibial Doppler Multiphasic -Dorsalis Pedis Palpable Yes -Dorsalis Pedis Doppler Multiphasic -Hair Growth on Legs No -Hair Growth on Toes No -Temperature of Extremity Warm -Capillary Refill Less than 3 Seconds Left -Posterior Tibial Palpable Yes -Posterior Tibial Doppler Multiphasic -Dorsalis Pedis Palpable Yes -Dorsalis Pedis Doppler Multiphasic -Hair Growth on Legs No -Hair Growth on Toes No -Temperature of Extremity Warm -Capillary Refill Less than 3 Seconds -Dependent Rubor No -Blanched when Elevated No Communication Assessment Primary Language [place] Preferred language [place] Accounting Coordinator Required No Able to Read Yes Able to Write Yes Communication Tools None Right Hearing Abillity Normal Left Hearing Abillity Normal Visual Assistive Devices Glasses Teaching Assessment Preferences Verbal,Written, Audio/Visual, Demonstration Barriers to Learning None Readiness To Learn Good Willingness to Engage in Self Management Med Activies Readiness to Engage in Self Management Med Activities Anxiety Level Calm Cooperation Cooperative Perception Coherent Interest in Health Problem Asks Questions Education Importance Acknowledges Need Does Patient Smoke tobacco or other No substances Smoking Status Never smoker Is Patient Diabetic Yes Functional Assessment Recent Decline in Ability to Perform Denies Any Declines Culture/Restorationism/Store Operations Manager Cultural/Restorationism Needs that may affect No Treatment Plan Would you allow our [facility] engineering technical writer to No meet you for the purpose of spiritual/ emotional support? Store Operations Manager to contact place of pentecostalism No Teaching: Wound Center *Welcome to the Wound Center -Person Taught Patient,Family -Teaching Method Discussion, Demonstration -Response to teaching Return demonstration, Verbalize understanding 06/18/23 06/25/23 08:21 08:04 WC - Today's Visit Information Type of service Follow-up Visit Follow-up Visit (Physician/LUNCHEONETTE MANAGER (Physician/LUNCHEONETTE MANAGER ) ) Arrival Mode Ambulatory Ambulatory Transfer Assistance None None Patient Identification Verified (Name & Yes Yes ) Patient Requires Transmission-Based No Precautions Safety Precautions Finger Stick Blood Sugar(mg/dl) (if indicated): Blood Sugar Height and Weight Height Weight Weight in Pounds Weight Measurement Method Body Mass Index (BMI) 29.5 29.5 BMI Classification Overweight Overweight [facility] - [place] Vital Signs Temperature (97.8 F-99.1 F) 96.6 F L 97.4 F L Temperature Source Temporal Temporal Pulse Rate (60-100) 94 90 Pulse Location Monitor Monitor Respiratory Rate (12-18) 18 20 H Respiratory rate source Observation Observation Oxygen Delivery Method Blood Pressure (90/60-120/80) 146/88 H 147/94 H Blood Pressure Mean (mm Hg) 107 111 Source Monitor Monitor Position Blood Pressure Location History Since Last Visit- (Skip if this is Patient's initial visit) Have you changed medications since your No No last visit? Any new allergies or adverse reactions No No Had a fall/change in ADL's that may No No increase risk of falls Signs or symptoms of abuse and/or No No neglect since last visit Have you been in the hospital since your No No last visit? Has dressing in place as prescribed Yes Yes Has compression in place as prescribed N/A N/A Has offloadiing in place as prescribed Yes No Experienced any changes in pain level or No No management Left Footwear Right Footwear Pain Scale: 0-10 Numeric Is Patient Pain Free? Yes Yes Lower Extremity Assessment/ Foot Assessment/ Toe Nail Assessment Right -Posterior Tibial Palpable -Posterior Tibial Doppler -Dorsalis Pedis Palpable -Dorsalis Pedis Doppler -Hair Growth on Legs -Hair Growth on Toes -Temperature of Extremity -Capillary Refill Left -Posterior Tibial Palpable -Posterior Tibial Doppler -Dorsalis Pedis Palpable -Dorsalis Pedis Doppler -Hair Growth on Legs -Hair Growth on Toes -Temperature of Extremity -Capillary Refill -Dependent Rubor -Blanched when Elevated Communication Assessment Primary Language Preferred prosthodontist Required Able to Read Able to Write Communication Tools Right Hearing Abillity Left Hearing Abillity Visual Assistive Devices Teaching Assessment Preferences Barriers to Learning Readiness To Learn Willingness to Engage in Self Management Activies Readiness to Engage in Self Management Activities Anxiety Level Cooperation Perception Interest in Health Problem Education Importance Does Patient Smoke tobacco or other substances Smoking Status Is Patient Diabetic Functional Assessment Recent Decline in Ability to Perform Culture/Restorationism/Store Operations Manager Cultural/Restorationism Needs that may affect Treatment Plan Would you allow our hospital engineering technical writer to meet you for the purpose of spiritual/ emotional support? Store Operations Manager to contact place of pentecostalism Teaching: Wound Center *Welcome to the Wound Center -Person Taught -Teaching Method -Response to teaching WC - Nurse 1 - General Ulcer Measurement Start: 05/28/23 07:57 Freq: Status: Active Protocol: Activity Type Activity Date Activity User E-sign Co-sign Detail Recorded Client Recorded Date Recorded By Document 05/28/23 07:57 [id number] 05/28/23 08:13 Document 06/04/23 08:11 [id number] 06/04/23 08:13 JF Document 06/11/23 08:05 [facility] [id number] 06/11/23 08:13 BMF Document 06/18/23 08:21 DL [id number] 06/18/23 08:28 DL Document 06/25/23 08:04 DL [id number] 06/25/23 08:11 DL 05/28/23 06/04/23 06/11/23 07:57 08:11 08:05 Wound Center Nurse 1 3-left dorsal foot -Combined with other wound No No No -Current Size (cm) - Length 2.0 2.0 2.1 -Current Size (cm) - Width 2.1 2.0 1.8 -Current Size (cm) - Depth 0.2 0.2 0.4 -Total Square Cm 4.20 4.00 3.78 -Photo Taken Yes No No -Epithelialization None Present Small 1-33% None Present -Tunneling No No No -Undermining/Tunneling No No No -Circular Undermining No No No -Classification - Thickness Unclassifiable (Eschar Covered ) -Exudate Amt Small Small Medium -Exudate Type Serosanguineous Serosanguineous Serosanguineous -Wound Margin Flat & Intact Flat & Intact Distinct, Outline Attached -Granulation Amt None Present (0 Small (1-33%) Medium (34-66%) %) -Granulation Quality [place] -Slough/Fibrin Yes Yes Yes -Necrosis Amt Large (67-100%) Large (67-100%) Medium (34-66%) -Necrotic Tissue Type Adherent Slough Adherent Slough Adherent Slough -Structure Exposed N/A N/A -Texture (Beth-wound Skin Appearance) Assessed, Assessed, Assessed, Localized Edema Localized Edema Scarring -Moisture (Beth-wound Skin Appearance) Assessed,Dry/ Assessed,Dry/ Assessed Scaly Scaly -Color (Beth-wound Skin Appearance) Assessed Assessed Assessed -Temperature (Beth-wound Skin No Abnormality No Abnormality No Abnormality Appearance) (Pt Warm) (Pt Warm) (Pt Warm) -Tenderness on Palpation (Beth-wound No No No Skin Appearance) -Ulcer Cleansing Rinsed/ Rinsed/ Soap and Water Irrigated with Irrigated with Saline Saline -Foul Odor after Cleansing No No -Anesthetic Used 5% Lidocaine 5% Lidocaine 5% Lidocaine Gel Gel Gel Lower Limb Edema Present NA NA Yes Left Calf (cm) 37.6 Left Ankle (cm) 22.8 06/18/23 06/25/23 08:21 08:04 Wound Center Nurse 1 3-left dorsal foot -Combined with other wound -Current Size (cm) - Length 2 2.1 -Current Size (cm) - Width 1.8 1.8 -Current Size (cm) - Depth 0.5 0.3 -Total Square Cm 3.6 3.78 -Photo Taken -Epithelialization -Tunneling -Undermining/Tunneling -Circular Undermining -Classification - Thickness -Exudate Amt Medium Medium -Exudate Type Serosanguineous Serosanguineous -Wound Margin Distinct, Distinct, Outline Outline Attached Attached -Granulation Amt Medium (34-66%) Medium (34-66%) -Granulation Quality Red Red -Slough/Fibrin -Necrosis Amt Medium (34-66%) Medium (34-66%) -Necrotic Tissue Type Adherent Slough Adherent Slough -Structure Exposed N/A -Texture (Beth-wound Skin Appearance) Scarring Scarring -Moisture (Beth-wound Skin Appearance) No Abnormality Maceration -Color (Beth-wound Skin Appearance) Erythema No Abnormality -Temperature (Beth-wound Skin No Abnormality No Abnormality Appearance) (Pt Warm) (Pt Warm) -Tenderness on Palpation (Beth-wound No No Skin Appearance) -Ulcer Cleansing Soap and Water Soap and Water -Foul Odor after Cleansing No No -Anesthetic Used 5% Lidocaine 5% Lidocaine Gel Gel Lower Limb Edema Present Left Calf (cm) Left Ankle (cm) WC - Nurse 2 - General Ulcer CM Notes Start: 05/28/23 07:57 Freq: Status: Active Protocol: Activity Type Activity Date Activity User E-sign Co-sign Detail Recorded Client Recorded Date Recorded By Document 05/28/23 14:14 PL [id number] 05/28/23 14:15 PL Document 06/04/23 12:12 PL [id number] 06/04/23 12:12 PL Document 06/11/23 12:39 PL [id number] 06/11/23 12:42 PL Document 06/18/23 09:21 PL [id number] 06/18/23 09:24 PL 05/28/23 06/04/23 06/11/23 14:14 12:12 12:39 Wound Center Nurse 2 3-left dorsal foot -Time 08:37 08:39 08:39 -Correct Patient Yes Yes Yes -Correct Side, Site, Position Yes Yes Yes -Correct Procedure Yes Yes Yes -Procedure Performed Yes Yes Yes -Type of Procedure Debridement Debridement Debridement -Clinical Debridement Subcutaneous Subcutaneous Subcutaneous -Tissue Removed Subcutaneous Subcutaneous Subcutaneous -Post Debridement (cm) - Length 2.1 2.2 2.1 -Post Debridement (cm) - Width 2.0 2.0 1.8 -Post Debridement (cm) - Depth 0.2 0.2 0.4 -Total Square (Post) (cm) 4.20 4.40 3.78 -Area of Debridement (cm) - Length 2.1 2.2 2.1 -Area of Debridement (cm) - Width 2.0 2.0 1.8 -Total Square (Area) (cm) 4.20 4.40 3.78 -Tunneling No No No -Undermining/Tunneling No No No -Circular Undermining No No No -Wound/Ulcer Outcome Not Healed Not Healed Not Healed -Ulcer Cleansing Rinsed/ Rinsed/ Rinsed/ Irrigated with Irrigated with Irrigated with Saline Saline Saline -Foul Odor after Cleansing No No No -Bioengineered Tissue No No Yes -Type of Bioengineered Tissue Epifix -Expiration Date 01/25/28 -Product Lot Number [id number] -Percent Used 100 -Bleeding Controlled with Pressure Pressure Pressure -Treatment Response Procedure Procedure Procedure Tolerated Well Tolerated Well Tolerated Well -Debridement - Subq, 1st 20sq cm Yes Yes No -Apply Skin Sub - 1st 25 sq cm - Feet 1 -Epifix (per sq cm) 4 Pain Scale: 0-10 Numeric Is Patient Pain Free? Yes Yes Yes 06/18/23 09:21 Wound Center Nurse 2 3-left dorsal foot -Time 08:45 -Correct Patient Yes -Correct Side, Site, Position Yes -Correct Procedure Yes -Procedure Performed Yes -Type of Procedure Debridement -Clinical Debridement Subcutaneous -Tissue Removed Subcutaneous -Post Debridement (cm) - Length 2.0 -Post Debridement (cm) - Width 1.6 -Post Debridement (cm) - Depth 0.3 -Total Square (Post) (cm) 3.20 -Area of Debridement (cm) - Length 2.0 -Area of Debridement (cm) - Width 1.6 -Total Square (Area) (cm) 3.20 -Tunneling No -Undermining/Tunneling No -Circular Undermining No -Wound/Ulcer Outcome Not Healed -Ulcer Cleansing Rinsed/ Irrigated with Saline -Foul Odor after Cleansing -Bioengineered Tissue Yes -Type of Bioengineered Tissue Epifix -Expiration Date 01/25/28 -Product Lot Number [id number] -Percent Used 100 -Bleeding Controlled with Pressure -Treatment Response Procedure Tolerated Well -Debridement - Subq, 1st 20sq cm No -Apply Skin Sub - 1st 25 sq cm - Feet 1 -Epifix (per sq cm) 4 Pain Scale: 0-10 Numeric Is Patient Pain Free? Yes - Nurse 3 - General Ulcer D/C NN Start: 05/28/23 07:57 Freq: Status: Active Protocol: Activity Type Activity Date Activity User E-sign Co-sign Detail Recorded Client Recorded Date Recorded By Document 06/04/23 08:56 [id number] 06/04/23 08:56 Document 06/11/23 09:01 [facility] [id number] 06/11/23 09:03 [facility] Document 06/18/23 09:32 [id number] 06/18/23 09:32 06/04/23 06/11/23 06/18/23 08:56 09:01 09:32 Wound Care Center Nurse 3 3-left dorsal foot -Ulcer Cleansing Rinsed/ Rinsed/ Irrigated with Irrigated with Saline Saline -Foul Odor after Cleansing No No -Primary Dressing Applied Promogran Brianna Matter -Other Dressing epifix -Primary Dressing Covered/Secured with Dry Gauze, Dry Gauze & Dry Gauze & Secured with Roll Gauze, Roll Gauze, Tape Secured with Secured with Tape Tape -Other Covering abd -Promogran Brianna Matter 1 Treatment Response Procedure Tolerated Well Pain Scale: 0-10 Numeric Is Patient Pain Free? Yes Yes Yes - Visit Discharge Discharge Condition Stable Stable Stable Ambulatory Status Ambulatory Ambulatory Ambulatory Transportation Private Auto Private Auto Private Auto Accompanied by granddaughter janine daughter Medication Reconcilliation completed & Yes Yes provided to patient/care provider Clinical Summary of Care Provided Yes Yes Assessment/Plan Assessment/Plan (1) Wound eschar of foot: CODE(S): R23.4 - Changes in skin texture (2) Essential hypertension: CODE(S): I10 - Essential (primary) hypertension (3) Hyperlipidemia: CODE(S): E78.5 - Hyperlipidemia, unspecified QUALIFIERS: Hyperlipidemia type: unspecified Qualified Code(s): E78.5 - Hyperlipidemia, unspecified (4) Obesity: CODE(S): E66.9 - Obesity, unspecified QUALIFIERS: Obesity classification: unspecified obesity classification Obesity type: due to excess calories Serious obesity comorbidity presence: unspecified whether serious comorbidity present Qualified Code(s): E66.09 - Other obesity due to excess calories (5) Type 2 diabetes mellitus: CODE(S): E11.9 - Type 2 diabetes mellitus without complications QUALIFIERS: Diabetes mellitus complication status: with other specified complication Diabetes mellitus usp insulin use: without terminal press operator use Qualified Code(s): E11.69 - Type 2 diabetes mellitus with other specified complication (6) Pain in left foot: CODE(S): M79.672 - Pain in left foot (7) Non-pressure chronic ulcer of 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 Wound has not progressed secondary to diabetic status. She has completed full course of Keflex. Ulceration underwent debridement as noted in the clinical panel above. Ulceration measures 2.0 cm x 1.8 cm x 0.2 cm. Ulceration does demonstrate localized rubor secondary to her burn, with improving rubor. No signs of infection. Following debridement healthy, bleeding granular tissue remained. Epifix graft #3 applied to the wound base and dressed with Adaptic touch and anchored with Steri-Strips, dressed with dry sterile dressing. She is to change the outer dressing as needed. She was instructed to not get the dressings wet. Ulcerative site demonstrates improvement versus previous visit. She was approved for advanced wound care product, epi fix. We will continue application. Last known A1c performed at [facility] 06/18/2022 was 6.1%. Discussed proper diabetic diet to ensure tight glycemic control. Discussed she is not to be barefoot given her diabetic status indoors or outdoors. Shoe gear was encouraged to be worn at all times. Discussed that socks count is barefoot. Discussed adequate protein intake to aid in wound healing. She may take Bonifacio supplementation to aid in wound healing. The following work up and care recommendations were made: Dressing: EpiFix, Adaptic touch, Steri-Strips, dry sterile dressing. Change outer dressings as needed. Wash: Do not get wet Tissue growth optimization: EpiFix Offload: Ensure shoe gear does not rub on the wound site Vascular: DP and PT pulses weakly palpable however triphasic on Doppler. Adequate capillary fill time to digits. Edema: None Infection: No signs of infection Pain: May take [id number] Tylenol for discomfort Host factors: DM type II, obesity, HTN, HLD, patient education on barefoot status encouraged shoe gear to be worn. I answered all the patient's questions. To return to the wound healing center in 1 week or call sooner if the patient has any questions or concerns.
== END 2023-06-25 23:59 | disposition home or self-care (01) ==
LOC: WC 08:15
PROVIDERS: PCP Internal Medicine; Referring Provider Emergency Medicine; Visit Provider Student in an Organized Health Care Education/Training Program
DX: E11.621 Type 2 diabetes mellitus with foot ulcer (principal); L97.522 Non-pressure chronic ulcer of other part of left foot with fat layer exposed; I48.91 Unspecified atrial fibrillation; I10 Essential (primary) hypertension; R60.0 Localized edema; Z79.01 Long term (current) use of anticoagulants; E78.5 Hyperlipidemia, unspecified; Z86.16 Personal history of COVID-19; Z79.84 Long term (current) use of oral hypoglycemic drugs; M79.672 Pain in left foot; Z79.899 Other long term (current) drug therapy; G47.33 Obstructive sleep apnea (adult) (pediatric)
CPT/HCPCS: 11042; 15275; 99213; Q4186; G0463

== ENCOUNTER 2023-07-10 12:05 | Outpatient (RCR) | payer MEDICARE, SELFPAY ==
[2023-06-25 22:54] VITALS: BMI 29.2
[2023-07-10 13:29] LABS: International Normalized Ratio 2.3; Prothrombin Time (Protime)PT. 25.2 SECONDS (11.7-14.9)
== END 2023-07-10 18:00 | disposition home or self-care (01) ==
LOC: LAB 12:05
PROVIDERS: Family Provider Internal Medicine; PCP Internal Medicine; Referring Provider Internal Medicine Cardiovascular Disease; Visit Provider Internal Medicine Cardiovascular Disease
DX: I48.91 Unspecified atrial fibrillation (principal); I48.92 Unspecified atrial flutter; Z79.01 Long term (current) use of anticoagulants
CPT/HCPCS: 36415; 85610

== ENCOUNTER 2023-07-23 08:15 | Outpatient (RCR) | payer MEDICARE, SELFPAY ==
[2023-06-26 00:26] VITALS: BP 147/94; PULSE 90; RESP 20; TEMP 36.3; BMI 29.5
[2023-07-02 08:03] VITALS: BP 141/73; PULSE 92; RESP 20; TEMP 36.3; BMI 29.5
--- NOTE | 2023-07-02 09:00 | PCM.WC.PN ---
History of Present Illness Date of Service: 07/02/23 Chief Complaint: Nonhealing right leg ulcer. History of Wound: Ms. Red is a 78-year-old with PMHx of DM type II, A-fib, HLD, HTN, RAMESH, and obesity. She states roughly 4 weeks ago she dropped a rotisserie chicken and mashed potatoes onto the top of her left foot which resulted in significant burn to the dorsal aspect of the left foot with accompanying localized rubor. She had seen her PCP who placed her on a course of Keflex and she has finished this antibiotic to completion. She was referred to the wound care center for continued care secondary to nonhealing eschar covering the wound to the dorsal foot at the base of the third and fourth digits. Patient does state that the wound is tender to the touch. She denies any N/V/F/chills. Denies any further complaints. Subjective Subjective Patient is a 78-year-old female who follows to the wound care center with ulceration to the dorsal aspect of the left foot. She states she has been changing the outer dressings daily with the assistance of her granddaughter. Daughter accompanies her today and states she is seeing continued improvement in the wound. She denies constitutional symptoms. Denies further complaints. Objective Data Objective Data Vital Signs: Vital Signs Temp Pulse Resp BP 97.4 F L 92 20 H 141/73 H 07/02/23 08:03 07/02/23 08:03 07/02/23 08:03 07/02/23 08:03 Weight: 87.997 kg Body Mass Index (BMI) 29.5 Physical Exam Const alert, oriented x3 and no apparent distress General Appearance: cooperative HEENT normocephalic Eyes General Eye: normal appearance of both eyes Neck General: normal visual inspection Lymph Lymphatic: no lymphadenopathy noted and no lymphedema noted Resp normal respiratory effort Cardio regular rate and regular rhythm Extremity normal capillary refill, no joint enlargement, no calf tenderness and no pedal edema Extremity Narrative: DP and PT pulses weakly palpable. Capillary fill time is less than 4 seconds to the digits. On Doppler DP and PT are triphasic. Dermatological: There is a wound noted to the dorsal aspect of the left foot at the base of the third and fourth digits with yellow fibrotic tissue in the wound bed with localized rubor secondary to burn from hot food. Rubor resolved. No erythema, no purulent drainage, no malodor, no palpable fluctuance/bogginess, no visible abscess, no lymphangitic streaking. Surrounding skin is thin. Musculoskeletal: Muscle strength 5 of 5 age-appropriate. There is decreased range of motion of the ankle joint in dorsiflexion with the knee extended without pain or crepitus. Pain to palpation about ulcerative site. Skin no rashes or lesions noted, skin turgor normal and no jaundice Neuro moves all extremities Debridement Note Debridement Note Wound debrided: Left foot Laterality: Left Wound Grade/Stage: Saeed stage I Type of Debridement: Excisional debridement Anesthesia Used: 5% Lidocaine Gel Depth: Down to and including healthy tissue and in the subcutaneous layer Percentage of wound debrided: 100 Instrument Used: 5mm curette Tissue Removed: Fibrous, devitalized subcutaneous, biofilm, slough Severity: Fat Layer Exposed Amount of bleeding with debridement: Mild Bleeding Controlled with: Compression and gauze Patient tolerated procedure: Patient tolerated procedure well Post-Debridement Measurements and Additional Note: Post-Debridement Measurements/Treatment - Nurse 1 - General Ulcer Assessment Start: 07/02/23 08:02 Freq: Status: Active Protocol: [email or web address] Activity Type Activity Date Activity User E-sign Co-sign Detail Recorded Client Recorded Date Recorded By Document 07/02/23 08:03 DL [id number] 07/02/23 08:10 DL 07/02/23 08:03 - Today's Visit Information Type of service Follow-up Visit (Physician/RULES EXAMINER ) Arrival Mode Ambulatory Transfer Assistance None Patient Identification Verified (Name & Yes ) Patient Requires Transmission-Based No Precautions Height and Weight Body Mass Index (BMI) 29.5 BMI Classification Overweight Vital Signs Temperature (97.8 F-99.1 F) 97.4 F L Temperature Source Temporal Pulse Rate (60-100) 92 Pulse Location Monitor Respiratory Rate (12-18) 20 H Respiratory rate source Observation Blood Pressure (90/60-120/80) 141/73 H Blood Pressure Mean (mm Hg) 95 Source Monitor History Since Last Visit- (Skip if this is Patient's initial visit) Have you changed medications since your No last visit? Any new allergies or adverse reactions No Had a fall/change in ADL's that may No increase risk of falls Signs or symptoms of abuse and/or No neglect since last visit Have you been in the hospital since your No last visit? Has dressing in place as prescribed Yes Has compression in place as prescribed Yes Has offloadiing in place as prescribed N/A Experienced any changes in pain level or No management Pain Scale: 0-10 Numeric Is Patient Pain Free? Yes - Nurse 1 - General Ulcer Measurement Start: 07/02/23 08:02 Freq: Status: Active Protocol: Activity Type Activity Date Activity User E-sign Co-sign Detail Recorded Client Recorded Date Recorded By Document 07/02/23 08:03 DL [id number] 07/02/23 08:10 DL 07/02/23 08:03 Wound Center Nurse 1 3-left dorsal foot -Current Size (cm) - Length 1.9 -Current Size (cm) - Width 1.6 -Current Size (cm) - Depth 0.3 -Total Square Cm 3.04 -Exudate Amt Medium -Exudate Type Serosanguineous -Wound Margin Distinct, Outline Attached -Granulation Amt Medium (34-66%) -Granulation Quality Lafferty -Necrosis Amt Medium (34-66%) -Necrotic Tissue Type Adherent Slough -Structure Exposed N/A -Texture (Beth-wound Skin Appearance) Scarring -Moisture (Beth-wound Skin Appearance) Maceration -Color (Beth-wound Skin Appearance) No Abnormality -Temperature (Beth-wound Skin No Abnormality Appearance) (Pt Warm) -Tenderness on Palpation (Beth-wound No Skin Appearance) -Ulcer Cleansing Soap and Water -Foul Odor after Cleansing No -Anesthetic Used 5% Lidocaine Gel - Nurse 3 - General Ulcer D/C NN Start: 07/02/23 08:02 Freq: Status: Active Protocol: Activity Type Activity Date Activity User E-sign Co-sign Detail Recorded Client Recorded Date Recorded By Document 07/02/23 08:54 KW [id number] 07/02/23 08:54 KW 07/02/23 08:54 Wound Care Center Nurse 3 -Primary Dressing Covered/Secured with Dry Gauze & Roll Gauze, Secured with Tape Pain Scale: 0-10 Numeric Is Patient Pain Free? Yes WC - Visit Discharge Discharge Condition Stable Ambulatory Status Ambulatory Transportation Private Auto Medication Reconcilliation completed & No provided to patient/care provider Clinical Summary of Care Provided Yes Assessment/Plan Assessment/Plan (1) Non-pressure chronic ulcer of other part of left foot with fat layer exposed: CODE(S): L97.522 - Non-pressure chronic ulcer of other part of left foot with fat layer exposed (2) Pain in left foot: CODE(S): M79.672 - Pain in left foot (3) Essential hypertension: CODE(S): I10 - Essential (primary) hypertension (4) Hyperlipidemia: CODE(S): E78.5 - Hyperlipidemia, unspecified QUALIFIERS: Hyperlipidemia type: unspecified Qualified Code(s): E78.5 - Hyperlipidemia, unspecified (5) Diabetes mellitus: CODE(S): E11.9 - Type 2 diabetes mellitus without complications QUALIFIERS: Diabetes mellitus type: type 2 Diabetes mellitus snf insulin use: unspecified 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 Wound has not progressed secondary to diabetic status. She has completed full course of Keflex. Ulceration underwent debridement as noted in the clinical panel above. Ulceration measures 2.1 cm x 1.4 cm x 0.2 cm. Ulceration does demonstrate localized rubor secondary to her burn, with improving rubor. No signs of infection. Following debridement healthy, bleeding granular tissue remained. Epifix graft #4 applied to the wound base and dressed with Adaptic touch and anchored with Steri-Strips, dressed with dry sterile dressing. She is to change the outer dressing as needed. She was instructed to not get the dressings wet. Ulcerative site demonstrates improvement versus previous visit. She was approved for advanced wound care product, epi fix. We will continue application. Last known A1c performed at [facility] 06/18/2022 was 6.1%. Discussed proper diabetic diet to ensure tight glycemic control. Discussed she is not to be barefoot given her diabetic status indoors or outdoors. Shoe gear was encouraged to be worn at all times. Discussed that socks count is barefoot. Discussed adequate protein intake to aid in wound healing. She may take Bonifacio supplementation to aid in wound healing. The following work up and care recommendations were made: Dressing: EpiFix, Adaptic touch, Steri-Strips, dry sterile dressing. Change outer dressings as needed. Wash: Do not get wet Tissue growth optimization: EpiFix Offload: Ensure shoe gear does not rub on the wound site Vascular: DP and PT pulses weakly palpable however triphasic on Doppler. Adequate capillary fill time to digits. Edema: None Infection: No signs of infection Pain: May take [id number] Tylenol for discomfort Host factors: DM type II, obesity, HTN, HLD, patient education on barefoot status encouraged shoe gear to be worn. I answered all the patient's questions. To return to the wound healing center in 1 week or call sooner if the patient has any questions or concerns.
[2023-07-09 08:12] VITALS: BP 155/101; PULSE 86; RESP 18; TEMP 36; BMI 29.5
--- NOTE | 2023-07-09 08:21 | PCM.WC.PN ---
History of Present Illness Date of Service: 07/09/23 Chief Complaint: Nonhealing right leg ulcer. History of Wound: Ms. Red is a 78-year-old with PMHx of DM type II, A-fib, HLD, HTN, RAMESH, and obesity. She states roughly 4 weeks ago she dropped a rotisserie chicken and mashed potatoes onto the top of her left foot which resulted in significant burn to the dorsal aspect of the left foot with accompanying localized rubor. She had seen her PCP who placed her on a course of Keflex and she has finished this antibiotic to completion. She was referred to the wound care center for continued care secondary to nonhealing eschar covering the wound to the dorsal foot at the base of the third and fourth digits. Patient does state that the wound is tender to the touch. She denies any N/V/F/chills. Denies any further complaints. Subjective Subjective Patient is a 78-year-old female who follows to the wound care center with ulceration to the dorsal aspect of the left foot. She states she has been changing the outer dressings daily with the assistance of her granddaughter. Daughter accompanies her today and states she is wound is continuing to improve. She denies constitutional symptoms. Denies further complaints. Objective Data Objective Data Vital Signs: Vital Signs Temp Pulse Resp BP 97.4 F L 92 20 H 141/73 H 07/02/23 08:03 07/02/23 08:03 07/02/23 08:03 07/02/23 08:03 Weight: 87.997 kg Body Mass Index (BMI) 29.5 Physical Exam Const alert, oriented x3 and no apparent distress General Appearance: cooperative HEENT normocephalic Eyes General Eye: normal appearance of both eyes Neck General: normal visual inspection Lymph Lymphatic: no lymphadenopathy noted and no lymphedema noted Resp normal respiratory effort Cardio regular rate and regular rhythm Extremity normal capillary refill, no joint enlargement, no calf tenderness and no pedal edema Extremity Narrative: DP and PT pulses weakly palpable. Capillary fill time is less than 4 seconds to the digits. On Doppler DP and PT are triphasic. Dermatological: There is a wound noted to the dorsal aspect of the left foot at the base of the third and fourth digits with yellow fibrotic tissue in the wound bed with localized rubor secondary to burn from hot food. Rubor resolved. No erythema, no purulent drainage, no malodor, no palpable fluctuance/bogginess, no visible abscess, no lymphangitic streaking. Surrounding skin is thin. Musculoskeletal: Muscle strength 5 of 5 age-appropriate. There is decreased range of motion of the ankle joint in dorsiflexion with the knee extended without pain or crepitus. Pain to palpation about ulcerative site. Skin no rashes or lesions noted, skin turgor normal and no jaundice Neuro moves all extremities Debridement Note Debridement Note Wound debrided: Left dorsal foot Laterality: Left Wound Grade/Stage: Saeed stage I Type of Debridement: Excisional debridement Anesthesia Used: 5% Lidocaine Gel Depth: Down to and including healthy tissue and in the subcutaneous layer Percentage of wound debrided: 100 Instrument Used: 5mm curette Tissue Removed: Fibrous, devitalized subcutaneous, biofilm, slough Severity: Fat Layer Exposed Amount of bleeding with debridement: Mild Bleeding Controlled with: Compression and gauze Patient tolerated procedure: Patient tolerated procedure well Post-Debridement Measurements and Additional Note: Post-Debridement Measurements/Treatment - Nurse 1 - General Ulcer Assessment Start: 07/02/23 08:02 Freq: Status: Active Protocol: [email or web address] Activity Type Activity Date Activity User E-sign Co-sign Detail Recorded Client Recorded Date Recorded By Document 07/02/23 08:03 DL [id number] 07/02/23 08:10 DL 07/02/23 08:03 - Today's Visit Information Type of service Follow-up Visit (Physician/PARAPROFESSIONAL AIDE ) Arrival Mode Ambulatory Transfer Assistance None Patient Identification Verified (Name & Yes ) Patient Requires Transmission-Based No Precautions Height and Weight Body Mass Index (BMI) 29.5 BMI Classification Overweight Vital Signs Temperature (97.8 F-99.1 F) 97.4 F L Temperature Source Temporal Pulse Rate (60-100) 92 Pulse Location Monitor Respiratory Rate (12-18) 20 H Respiratory rate source Observation Blood Pressure (90/60-120/80) 141/73 H Blood Pressure Mean (mm Hg) 95 Source Monitor History Since Last Visit- (Skip if this is Patient's initial visit) Have you changed medications since your No last visit? Any new allergies or adverse reactions No Had a fall/change in ADL's that may No increase risk of falls Signs or symptoms of abuse and/or No neglect since last visit Have you been in the hospital since your No last visit? Has dressing in place as prescribed Yes Has compression in place as prescribed Yes Has offloadiing in place as prescribed N/A Experienced any changes in pain level or No management Pain Scale: 0-10 Numeric Is Patient Pain Free? Yes WC - Nurse 1 - General Ulcer Measurement Start: 07/02/23 08:02 Freq: Status: Active Protocol: Activity Type Activity Date Activity User E-sign Co-sign Detail Recorded Client Recorded Date Recorded By Document 07/02/23 08:03 DL [id number] 07/02/23 08:10 DL 07/02/23 08:03 Wound Center Nurse 1 3-left dorsal foot -Current Size (cm) - Length 1.9 -Current Size (cm) - Width 1.6 -Current Size (cm) - Depth 0.3 -Total Square Cm 3.04 -Exudate Amt Medium -Exudate Type Serosanguineous -Wound Margin Distinct, Outline Attached -Granulation Amt Medium (34-66%) -Granulation Quality Burna -Necrosis Amt Medium (34-66%) -Necrotic Tissue Type Adherent Slough -Structure Exposed N/A -Texture (Beth-wound Skin Appearance) Scarring -Moisture (Beth-wound Skin Appearance) Maceration -Color (Beth-wound Skin Appearance) No Abnormality -Temperature (Beth-wound Skin No Abnormality Appearance) (Pt Warm) -Tenderness on Palpation (Beth-wound No Skin Appearance) -Ulcer Cleansing Soap and Water -Foul Odor after Cleansing No -Anesthetic Used 5% Lidocaine Gel WC - Nurse 2 - General Ulcer CM Notes Start: 07/02/23 08:02 Freq: Status: Active Protocol: Activity Type Activity Date Activity User E-sign Co-sign Detail Recorded Client Recorded Date Recorded By Document 07/02/23 11:41 PL [id number] 07/02/23 11:50 PL 07/02/23 11:41 Wound Center Nurse 2 -Time 08:39 -Correct Patient Yes -Correct Side, Site, Position Yes -Correct Procedure Yes -Procedure Performed Yes -Type of Procedure Debridement -Clinical Debridement Subcutaneous -Tissue Removed Subcutaneous -Post Debridement (cm) - Length 2.1 -Post Debridement (cm) - Width 1.4 -Post Debridement (cm) - Depth 0.2 -Total Square (Post) (cm) 2.94 -Area of Debridement (cm) - Length 2.1 -Area of Debridement (cm) - Width 1.4 -Total Square (Area) (cm) 2.94 -Tunneling No -Undermining/Tunneling No -Circular Undermining No -Wound/Ulcer Outcome Not Healed -Ulcer Cleansing Rinsed/ Irrigated with Saline -Foul Odor after Cleansing No -Bioengineered Tissue Yes -Type of Bioengineered Tissue Epifix -Expiration Date 02/24/28 -Product Lot Number [id number] -Percent Used 100 -Bleeding Controlled with Pressure -Treatment Response Procedure Tolerated Well -Debridement - Subq, 1st 20sq cm No -Apply Skin Sub - 1st 25 sq cm - Feet 1 -Epifix (per sq cm) 4 Pain Scale: 0-10 Numeric Is Patient Pain Free? Yes - Nurse 3 - General Ulcer D/C NN Start: 07/02/23 08:02 Freq: Status: Active Protocol: Activity Type Activity Date Activity User E-sign Co-sign Detail Recorded Client Recorded Date Recorded By Document 07/02/23 08:54 [id number] 07/02/23 08:54 07/02/23 08:54 Wound Care Center Nurse 3 3-left dorsal foot -Primary Dressing Covered/Secured with Dry Gauze & Roll Gauze, Secured with Tape Pain Scale: 0-10 Numeric Is Patient Pain Free? Yes - Visit Discharge Discharge Condition Stable Ambulatory Status Ambulatory Transportation Private Auto Medication Reconcilliation completed & No provided to patient/care provider Clinical Summary of Care Provided Yes Assessment/Plan Assessment/Plan (1) Non-pressure chronic ulcer of other part of left foot with fat layer exposed: CODE(S): L97.522 - Non-pressure chronic ulcer of other part of left foot with fat layer exposed (2) Pain in left foot: CODE(S): M79.672 - Pain in left foot (3) Essential hypertension: CODE(S): I10 - Essential (primary) hypertension (4) Hyperlipidemia: CODE(S): E78.5 - Hyperlipidemia, unspecified QUALIFIERS: Hyperlipidemia type: unspecified Qualified Code(s): E78.5 - Hyperlipidemia, unspecified (5) Diabetes mellitus: CODE(S): E11.9 - Type 2 diabetes mellitus without complications QUALIFIERS: Diabetes mellitus complication detail: with foot ulcer Diabetes mellitus complication status: with skin complications Diabetes mellitus snf insulin use: unspecified 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 Wound has not progressed secondary to diabetic status. She has completed full course of Keflex. Ulceration underwent debridement as noted in the clinical panel above. Ulceration measures 1.5 cm x 1.7 cm x 0.2 cm. Ulceration does demonstrate localized rubor secondary to her burn, with improving rubor. No signs of infection. Following debridement healthy, bleeding granular tissue remained. Epifix graft #5 applied to the wound base and dressed with Adaptic touch and anchored with Steri-Strips, dressed with dry sterile dressing. She is to change the outer dressing as needed. She was instructed to not get the dressings wet. Ulcerative site demonstrates improvement versus previous visit. She was approved for advanced wound care product, epi fix. We will continue application. Last known A1c performed at [facility] 06/18/2022 was 6.1%. Discussed proper diabetic diet to ensure tight glycemic control. Discussed she is not to be barefoot given her diabetic status indoors or outdoors. Shoe gear was encouraged to be worn at all times. Discussed that socks count is barefoot. Discussed adequate protein intake to aid in wound healing. She may take Bonifacio supplementation to aid in wound healing. The following work up and care recommendations were made: Dressing: EpiFix, Adaptic touch, Steri-Strips, dry sterile dressing. Change outer dressings as needed. Wash: Do not get wet Tissue growth optimization: EpiFix Offload: Ensure shoe gear does not rub on the wound site Vascular: DP and PT pulses weakly palpable however triphasic on Doppler. Adequate capillary fill time to digits. Edema: None Infection: No signs of infection Pain: May take [id number] Tylenol for discomfort Host factors: DM type II, obesity, HTN, HLD, patient education on barefoot status encouraged shoe gear to be worn. I answered all the patient's questions. To return to the wound healing center in 1 week or call sooner if the patient has any questions or concerns.
[2023-07-16 08:04] VITALS: BP 138/84; PULSE 86; RESP 18; TEMP 36.3; BMI 29.5
--- NOTE | 2023-07-16 08:21 | PCM.WC.PN ---
History of Present Illness Date of Service: 07/16/23 Chief Complaint: Nonhealing right leg ulcer. History of Wound: Ms. Red is a 78-year-old with PMHx of DM type II, A-fib, HLD, HTN, RAMESH, and obesity. She states roughly 4 weeks ago she dropped a rotisserie chicken and mashed potatoes onto the top of her left foot which resulted in significant burn to the dorsal aspect of the left foot with accompanying localized rubor. She had seen her PCP who placed her on a course of Keflex and she has finished this antibiotic to completion. She was referred to the wound care center for continued care secondary to nonhealing eschar covering the wound to the dorsal foot at the base of the third and fourth digits. Patient does state that the wound is tender to the touch. She denies any N/V/F/chills. Denies any further complaints. Subjective Subjective Patient is a 78-year-old female who follows to the wound care center with ulceration to the dorsal aspect of the left foot. She states she has been changing the outer dressings daily with the assistance of her granddaughter and daughter. Her daughter accompanies her today and states she is wound is continuing to improve and is looking smaller than last week. She denies constitutional symptoms. Denies further complaints. Objective Data Objective Data Vital Signs: Vital Signs Temp Pulse Resp BP O2 Del Method 97.4 F L 86 18 138/84 H Room Air 07/16/23 08:04 07/16/23 08:04 07/16/23 08:04 07/16/23 08:04 07/09/23 08:12 Oxygen Delivery Method Room Air Weight: 87.997 kg Body Mass Index (BMI) 29.5 Physical Exam Const alert, oriented x3 and no apparent distress General Appearance: cooperative HEENT normocephalic Eyes General Eye: normal appearance of both eyes Neck General: normal visual inspection Lymph Lymphatic: no lymphadenopathy noted and no lymphedema noted Resp normal respiratory effort Cardio regular rate and regular rhythm Extremity normal capillary refill, no joint enlargement, no calf tenderness and no pedal edema Extremity Narrative: DP and PT pulses weakly palpable. Capillary fill time is less than 4 seconds to the digits. On Doppler DP and PT are triphasic. Dermatological: There is a wound noted to the dorsal aspect of the left foot at the base of the third and fourth digits with yellow fibrotic tissue in the wound bed with localized rubor secondary to burn from hot food. Rubor resolved. No erythema, no purulent drainage, no malodor, no palpable fluctuance/bogginess, no visible abscess, no lymphangitic streaking. Surrounding skin is thin. Musculoskeletal: Muscle strength 5 of 5 age-appropriate. There is decreased range of motion of the ankle joint in dorsiflexion with the knee extended without pain or crepitus. Pain to palpation about ulcerative site. Skin no rashes or lesions noted, skin turgor normal and no jaundice Neuro moves all extremities Debridement Note Debridement Note Wound debrided: Left foot Laterality: Left Wound Grade/Stage: Saeed stage I Type of Debridement: Excisional debridement Anesthesia Used: 5% Lidocaine Gel Depth: Down to and including healthy tissue and in the subcutaneous layer Percentage of wound debrided: 100 Instrument Used: 5mm curette Tissue Removed: Fibrous, devitalized subcutaneous, biofilm, slough Severity: Fat Layer Exposed Amount of bleeding with debridement: Mild Bleeding Controlled with: Compression and gauze Patient tolerated procedure: Patient tolerated procedure well Post-Debridement Measurements and Additional Note: Post-Debridement Measurements/Treatment - Nurse 1 - General Ulcer Assessment Start: 07/02/23 08:02 Freq: Status: Active Protocol: AMEE Activity Type Activity Date Activity User E-sign Co-sign Detail Recorded Client Recorded Date Recorded By Document 07/02/23 08:03 DL [id number] 07/02/23 08:10 DL Document 07/09/23 08:12 KW [id number] 07/09/23 08:30 KW Document 07/16/23 08:04 DL Desktop 07/16/23 08:11 DL 07/02/23 07/09/23 07/16/23 08:03 08:12 08:04 - Today's Visit Information Type of service Follow-up Visit Follow-up Visit Follow-up Visit (Physician/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 (Physician/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 (Physician/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 ) ) ) Arrival Mode Ambulatory Ambulatory Ambulatory Transfer Assistance None None Accompanied by daughter Patient Identification Verified (Name & Yes Yes Yes ) Patient Requires Transmission-Based No No Precautions Finger Stick Blood Sugar(mg/dl) (if 142 indicated): Blood Sugar Stated by Patient Height and Weight Body Mass Index (BMI) 29.5 29.5 29.5 BMI Classification Overweight Overweight Overweight Vital Signs Temperature (97.8 F-99.1 F) 97.4 F L 96.8 F L 97.4 F L Temperature Source Temporal Temporal Temporal Pulse Rate (60-100) 92 86 86 Pulse Location Monitor Monitor Monitor Respiratory Rate (12-18) 20 H 18 18 Respiratory rate source Observation Observation Observation Oxygen Delivery Method Room Air Blood Pressure (90/60-120/80) 141/73 H 155/101 H 138/84 H Blood Pressure Mean (mm Hg) 95 119 102 Source Monitor Monitor Monitor Position Semi-Fowlers Blood Pressure Location Left Arm History Since Last Visit- (Skip if this is Patient's initial visit) Have you changed medications since your No No No last visit? Any new allergies or adverse reactions No No No Had a fall/change in ADL's that may No No No increase risk of falls Signs or symptoms of abuse and/or No No No neglect since last visit Have you been in the hospital since your No No No last visit? Has dressing in place as prescribed Yes Yes Yes Has compression in place as prescribed Yes Yes Yes Has offloadiing in place as prescribed N/A N/A N/A Experienced any changes in pain level or No No No management Left Footwear Regular Shoe Right Footwear Regular Shoe Pain Scale: 0-10 Numeric Is Patient Pain Free? Yes Yes Yes WC - Nurse 1 - General Ulcer Measurement Start: 07/02/23 08:02 Freq: Status: Active Protocol: Activity Type Activity Date Activity User E-sign Co-sign Detail Recorded Client Recorded Date Recorded By Document 07/02/23 08:03 DL [id number] 07/02/23 08:10 DL Document 07/09/23 08:12 KW [id number] 07/09/23 08:30 KW Document 07/16/23 08:04 DL Desktop 07/16/23 08:11 DL 07/02/23 07/09/23 07/16/23 08:03 08:12 08:04 Wound Center Nurse 1 3-left dorsal foot -Current Size (cm) - Length 1.9 2.0 1.5 -Current Size (cm) - Width 1.6 1.5 1 -Current Size (cm) - Depth 0.3 0.4 0.3 -Total Square Cm 3.04 3.00 1.5 -Exudate Amt Medium Medium Medium -Exudate Type Serosanguineous Yellow/Green Serosanguineous -Wound Margin Distinct, Distinct, Distinct, Outline Outline Outline Attached Attached Attached -Granulation Amt Medium (34-66%) Small (1-33%) Medium (34-66%) -Granulation Quality [place] Red Red -Necrosis Amt Medium (34-66%) Medium (34-66%) Medium (34-66%) -Necrotic Tissue Type Adherent Slough Adherent Slough Adherent Slough -Structure Exposed N/A N/A -Texture (Beth-wound Skin Appearance) Scarring Assessed Scarring -Moisture (Beth-wound Skin Appearance) Maceration Assessed No Abnormality -Color (Beth-wound Skin Appearance) No Abnormality Assessed Hemosiderin Staining -Temperature (Beth-wound Skin No Abnormality No Abnormality No Abnormality Appearance) (Pt Warm) (Pt Warm) (Pt Warm) -Tenderness on Palpation (Beth-wound No No Skin Appearance) -Ulcer Cleansing Soap and Water Soap and Water Soap and Water -Foul Odor after Cleansing No No -Anesthetic Used 5% Lidocaine 5% Lidocaine 5% Lidocaine Gel Gel Gel Left Calf (cm) 37.5 36.5 Left Ankle (cm) 30 21.8 WC - Nurse 2 - General Ulcer CM Notes Start: 07/02/23 08:02 Freq: Status: Active Protocol: Activity Type Activity Date Activity User E-sign Co-sign Detail Recorded Client Recorded Date Recorded By Document 07/02/23 11:41 BRYAN [id number] 07/02/23 11:50 PL Document 07/09/23 12:51 [id number] 07/09/23 12:54 PL 07/02/23 07/09/23 11:41 12:51 Wound Center Nurse 2 3-left dorsal foot -Time 08:39 08:40 -Correct Patient Yes Yes -Correct Side, Site, Position Yes Yes -Correct Procedure Yes Yes -Procedure Performed Yes Yes -Type of Procedure Debridement Debridement -Clinical Debridement Subcutaneous Subcutaneous -Tissue Removed Subcutaneous Subcutaneous -Post Debridement (cm) - Length 2.1 1.5 -Post Debridement (cm) - Width 1.4 1.7 -Post Debridement (cm) - Depth 0.2 0.4 -Total Square (Post) (cm) 2.94 2.55 -Area of Debridement (cm) - Length 2.1 1.5 -Area of Debridement (cm) - Width 1.4 1.7 -Total Square (Area) (cm) 2.94 2.55 -Tunneling No No -Undermining/Tunneling No No -Circular Undermining No No -Wound/Ulcer Outcome Not Healed Not Healed -Ulcer Cleansing Rinsed/ Rinsed/ Irrigated with Irrigated with Saline Saline -Foul Odor after Cleansing No No -Bioengineered Tissue Yes Yes -Type of Bioengineered Tissue Epifix Epifix 18mm Disc -Expiration Date 02/24/28 03/26/28 -Product Lot Number [id number] -Percent Used 100 100 -Bleeding Controlled with Pressure Pressure -Treatment Response Procedure Procedure Tolerated Well Tolerated Well -Debridement - Subq, 1st 20sq cm No No -Apply Skin Sub - 1st 25 sq cm - Feet 1 1 -Epifix (per sq cm) 4 -Epifix 18mm Disc 3 Pain Scale: 0-10 Numeric Is Patient Pain Free? Yes Yes - Nurse 3 - General Ulcer D/C NN Start: 07/02/23 08:02 Freq: Status: Active Protocol: Activity Type Activity Date Activity User E-sign Co-sign Detail Recorded Client Recorded Date Recorded By Document 07/02/23 08:54 KW [id number] 07/02/23 08:54 KW Document 07/09/23 09:03 DL [id number] 07/09/23 09:05 DL 07/02/23 07/09/23 08:54 09:03 Wound Care Center Nurse 3 3-left dorsal foot -Foul Odor after Cleansing No -Other Dressing Epi -Primary Dressing Covered/Secured with Dry Gauze & Dry Gauze & Roll Gauze, Roll Gauze, Secured with Secured with Tape Tape Left -Tubular Bandage Single Layer -Size of Tubigrip Used Size E -Size E ($) 1 Pain Scale: 0-10 Numeric Is Patient Pain Free? Yes Yes - Visit Discharge Discharge Condition Stable Stable Ambulatory Status Ambulatory Ambulatory Transportation Private Auto Private Auto Medication Reconcilliation completed & No provided to patient/care provider Clinical Summary of Care Provided Yes Assessment/Plan Assessment/Plan (1) Non-pressure chronic ulcer of other part of left foot with fat layer exposed: CODE(S): L97.522 - Non-pressure chronic ulcer of other part of left foot with fat layer exposed (2) Pain in left foot: CODE(S): M79.672 - Pain in left foot (3) Essential hypertension: CODE(S): I10 - Essential (primary) hypertension (4) Hyperlipidemia: CODE(S): E78.5 - Hyperlipidemia, unspecified QUALIFIERS: Hyperlipidemia type: unspecified Qualified Code(s): E78.5 - Hyperlipidemia, unspecified (5) Diabetes mellitus: CODE(S): E11.9 - Type 2 diabetes mellitus without complications QUALIFIERS: Diabetes mellitus complication detail: with foot ulcer Diabetes mellitus complication status: with skin complications Diabetes mellitus half-way insulin 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 Wound has not progressed secondary to diabetic status. She has completed full course of Keflex. Ulceration underwent debridement as noted in the clinical panel above. Ulceration measures 1.3 cm x 1.0 cm x 0.2 cm. Ulceration does demonstrate localized rubor secondary to her burn, with improving rubor. No signs of infection. Following debridement healthy, bleeding granular tissue remained. Epifix graft #6 applied to the wound base and dressed with Adaptic touch and anchored with Steri-Strips, dressed with dry sterile dressing. She is to change the outer dressing as needed. She was instructed to not get the dressings wet. Ulcerative site demonstrates improvement versus previous visit. She was approved for advanced wound care product, epi fix. We will continue application. Last known A1c performed at [facility] 06/18/2022 was 6.1%. Discussed proper diabetic diet to ensure tight glycemic control. Discussed she is not to be barefoot given her diabetic status indoors or outdoors. Shoe gear was encouraged to be worn at all times. Discussed that socks count is barefoot. Discussed adequate protein intake to aid in wound healing. She may take [place] supplementation to aid in wound healing. The following work up and care recommendations were made: Dressing: EpiFix, Adaptic touch, Steri-Strips, dry sterile dressing. Change outer dressings as needed. Wash: Do not get wet Tissue growth optimization: EpiFix Offload: Ensure shoe gear does not rub on the wound site Vascular: DP and PT pulses weakly palpable however triphasic on Doppler. Adequate capillary fill time to digits. Edema: None Infection: No signs of infection Pain: May take [id number] Tylenol for discomfort Host factors: DM type II, obesity, HTN, HLD, patient education on barefoot status encouraged shoe gear to be worn. I answered all the patient's questions. To return to the wound healing center in 1 week or call sooner if the patient has any questions or concerns.
[2023-07-23 08:09] VITALS: BP 138/74; PULSE 88; RESP 20; TEMP 35.3; BMI 29.5
--- NOTE | 2023-07-23 08:33 | PN.PCM_ITS ---
History of Present Illness Date of Service: 07/23/23 Chief Complaint: Nonhealing right leg ulcer. History of Wound: Ms. Red is a 78-year-old with PMHx of DM type II, A-fib, HLD, HTN, RAMESH, and obesity. She states roughly 4 weeks ago she dropped a rotisserie chicken and mashed potatoes onto the top of her left foot which resulted in significant burn to the dorsal aspect of the left foot with accompanying localized rubor. She had seen her PCP who placed her on a course of Keflex and she has finished this antibiotic to completion. She was referred to the wound care center for continued care secondary to nonhealing eschar covering the wound to the dorsal foot at the base of the third and fourth digits. Patient does state that the wound is tender to the touch. She denies any N/V/F/chills. Denies any further complaints. Subjective Subjective Patient is a 78-year-old female who follows to the wound care center with ulceration to the dorsal aspect of the left foot. She states she has been changing the outer dressings daily with the assistance of her granddaughter and daughter. Her daughter accompanies her today and states she is wound is continuing to improve and is looking smaller than last week. States her mothers pain has improved as well. She denies constitutional symptoms. Denies further complaints. Objective Data Objective Data Vital Signs: Vital Signs Temp Pulse Resp BP O2 Del Method 95.5 F L 88 20 H 138/74 H Room Air 07/23/23 08:09 07/23/23 08:09 07/23/23 08:09 07/23/23 08:09 07/09/23 08:12 Oxygen Delivery Method Room Air Weight: 87.997 kg Body Mass Index (BMI) 29.5 Physical Exam Const alert, oriented x3 and no apparent distress General Appearance: cooperative HEENT normocephalic Eyes General Eye: normal appearance of both eyes Neck General: normal visual inspection Lymph Lymphatic: no lymphadenopathy noted and no lymphedema noted Resp normal respiratory effort Cardio regular rate and regular rhythm Extremity normal capillary refill, no joint enlargement, no calf tenderness and no pedal edema Extremity Narrative: DP and PT pulses weakly palpable. Capillary fill time is less than 4 seconds to the digits. On Doppler DP and PT are triphasic. Dermatological: There is a wound noted to the dorsal aspect of the left foot at the base of the third and fourth digits with scant yellow fibrotic tissue in the wound bed. No erythema, no purulent drainage, no malodor, no palpable fluctuance/bogginess, no visible abscess, no lymphangitic streaking. Surrounding skin is thin. Musculoskeletal: Muscle strength 5 of 5 age-appropriate. There is decreased range of motion of the ankle joint in dorsiflexion with the knee extended without pain or crepitus. Pain to palpation about ulcerative site. Skin no rashes or lesions noted, skin turgor normal and no jaundice Neuro moves all extremities Debridement Note Debridement Note Wound debrided: Left foot Laterality: Left Wound Grade/Stage: Saeed stage I Type of Debridement: Excisional debridement Anesthesia Used: 5% Lidocaine Gel Depth: Down to and including healthy tissue and in the subcutaneous layer Percentage of wound debrided: 100 Instrument Used: 5mm curette Tissue Removed: Fibrous, devitalized subcutaneous, biofilm, slough Severity: Fat Layer Exposed Amount of bleeding with debridement: Mild Bleeding Controlled with: Compression and gauze Patient tolerated procedure: Patient tolerated procedure well Post-Debridement Measurements and Additional Note: Post-Debridement Measurements/Treatment - Nurse 1 - General Ulcer Assessment Start: 07/02/23 08:02 Freq: Status: Active Protocol: [email or web address] Activity Type Activity Date Activity User E-sign Co-sign Detail Recorded Client Recorded Date Recorded By Document 07/02/23 08:03 DL [id number] 07/02/23 08:10 DL Document 07/09/23 08:12 KW [id number] 07/09/23 08:30 KW Document 07/16/23 08:04 DL Desktop 07/16/23 08:11 DL Document 07/23/23 08:09 DL Desktop 07/23/23 08:12 DL 07/02/23 07/09/23 07/16/23 08:03 08:12 08:04 - Today's Visit Information Type of service Follow-up Visit Follow-up Visit Follow-up Visit (Physician/[employer] (Physician/[employer] (Physician/[employer] ) ) ) Arrival Mode Ambulatory Ambulatory Ambulatory Transfer Assistance None None Accompanied by daughter Patient Identification Verified (Name & Yes Yes Yes ) Patient Requires Transmission-Based No No Precautions Finger Stick Blood Sugar(mg/dl) (if 142 indicated): Blood Sugar Stated by Patient Height and Weight Body Mass Index (BMI) 29.5 29.5 29.5 BMI Classification Overweight Overweight Overweight Vital Signs Temperature (97.8 F-99.1 F) 97.4 F L 96.8 F L 97.4 F L Temperature Source Temporal Temporal Temporal Pulse Rate (60-100) 92 86 86 Pulse Location Monitor Monitor Monitor Respiratory Rate (12-18) 20 H 18 18 Respiratory rate source Observation Observation Observation Oxygen Delivery Method Room Air Blood Pressure (90/60-120/80) 141/73 H 155/101 H 138/84 H Blood Pressure Mean (mm Hg) 95 119 102 Source Monitor Monitor Monitor Position Semi-Fowlers Blood Pressure Location Left Arm History Since Last Visit- (Skip if this is Patient's initial visit) Have you changed medications since your No No No last visit? Any new allergies or adverse reactions No No No Had a fall/change in ADL's that may No No No increase risk of falls Signs or symptoms of abuse and/or No No No neglect since last visit Have you been in the hospital since your No No No last visit? Has dressing in place as prescribed Yes Yes Yes Has compression in place as prescribed Yes Yes Yes Has offloadiing in place as prescribed N/A N/A N/A Experienced any changes in pain level or No No No management Left Footwear Regular Shoe Right Footwear Regular Shoe Pain Scale: 0-10 Numeric Is Patient Pain Free? Yes Yes Yes 07/23/23 08:09 WC - Today's Visit Information Type of service Follow-up Visit (Physician/[employer] ) Arrival Mode Ambulatory Transfer Assistance None Accompanied by Patient Identification Verified (Name & Yes ) Patient Requires Transmission-Based No Precautions Finger Stick Blood Sugar(mg/dl) (if indicated): Blood Sugar Height and Weight Body Mass Index (BMI) 29.5 BMI Classification Overweight Vital Signs Temperature (97.8 F-99.1 F) 95.5 F L Temperature Source Temporal Pulse Rate (60-100) 88 Pulse Location Respiratory Rate (12-18) 20 H Respiratory rate source Oxygen Delivery Method Blood Pressure (90/60-120/80) 138/74 H Blood Pressure Mean (mm Hg) 95 Source Monitor Position Blood Pressure Location History Since Last Visit- (Skip if this is Patient's initial visit) Have you changed medications since your No last visit? Any new allergies or adverse reactions No Had a fall/change in ADL's that may No increase risk of falls Signs or symptoms of abuse and/or No neglect since last visit Have you been in the hospital since your No last visit? Has dressing in place as prescribed Yes Has compression in place as prescribed Yes Has offloadiing in place as prescribed Yes Experienced any changes in pain level or No management Left Footwear Right Footwear Pain Scale: 0-10 Numeric Is Patient Pain Free? Yes WC - Nurse 1 - General Ulcer Measurement Start: 07/02/23 08:02 Freq: Status: Active Protocol: Activity Type Activity Date Activity User E-sign Co-sign Detail Recorded Client Recorded Date Recorded By Document 07/02/23 08:03 DL [id number] 07/02/23 08:10 DL Document 07/09/23 08:12 KW [id number] 07/09/23 08:30 KW Document 07/16/23 08:04 DL Desktop 07/16/23 08:11 DL Document 07/23/23 08:09 DL Desktop 07/23/23 08:12 DL 07/02/23 07/09/23 07/16/23 08:03 08:12 08:04 Wound Center Nurse 1 3-left dorsal foot -Current Size (cm) - Length 1.9 2.0 1.5 -Current Size (cm) - Width 1.6 1.5 1 -Current Size (cm) - Depth 0.3 0.4 0.3 -Total Square Cm 3.04 3.00 1.5 -Exudate Amt Medium Medium Medium -Exudate Type Serosanguineous Yellow/Green Serosanguineous -Wound Margin Distinct, Distinct, Distinct, Outline Outline Outline Attached Attached Attached -Granulation Amt Medium (34-66%) Small (1-33%) Medium (34-66%) -Granulation Quality [place] Red Red -Necrosis Amt Medium (34-66%) Medium (34-66%) Medium (34-66%) -Necrotic Tissue Type Adherent Slough Adherent Slough Adherent Slough -Structure Exposed N/A N/A -Texture (Beth-wound Skin Appearance) Scarring Assessed Scarring -Moisture (Beth-wound Skin Appearance) Maceration Assessed No Abnormality -Color (Beth-wound Skin Appearance) No Abnormality Assessed Hemosiderin Staining -Temperature (Beth-wound Skin No Abnormality No Abnormality No Abnormality Appearance) (Pt Warm) (Pt Warm) (Pt Warm) -Tenderness on Palpation (Beth-wound No No Skin Appearance) -Ulcer Cleansing Soap and Water Soap and Water Soap and Water -Foul Odor after Cleansing No No -Anesthetic Used 5% Lidocaine 5% Lidocaine 5% Lidocaine Gel Gel Gel Left Calf (cm) 37.5 36.5 Left Ankle (cm) 30 21.8 07/23/23 08:09 Wound Center Nurse 1 3-left dorsal foot -Current Size (cm) - Length 1.3 -Current Size (cm) - Width 1 -Current Size (cm) - Depth 0.1 -Total Square Cm 1.3 -Exudate Amt Small -Exudate Type Serosanguineous -Wound Margin Distinct, Outline Attached -Granulation Amt Large (67-100%) -Granulation Quality -Necrosis Amt Small (1-33%) -Necrotic Tissue Type Adherent Slough -Structure Exposed N/A -Texture (Beth-wound Skin Appearance) Scarring -Moisture (Beth-wound Skin Appearance) No Abnormality -Color (Beth-wound Skin Appearance) Erythema -Temperature (Beth-wound Skin No Abnormality Appearance) (Pt Warm) -Tenderness on Palpation (Beth-wound No Skin Appearance) -Ulcer Cleansing Soap and Water -Foul Odor after Cleansing No -Anesthetic Used 5% Lidocaine Gel Left Calf (cm) 37.5 Left Ankle (cm) 22.8 - Nurse 2 - General Ulcer CM Notes Start: 07/02/23 08:02 Freq: Status: Active Protocol: Activity Type Activity Date Activity User E-sign Co-sign Detail Recorded Client Recorded Date Recorded By Document 07/02/23 11:41 PL [id number] 07/02/23 11:50 PL Document 07/09/23 12:51 PL [id number] 07/09/23 12:54 PL Document 07/16/23 11:49 PL [id number] 07/16/23 11:54 PL 07/02/23 07/09/23 07/16/23 11:41 12:51 11:49 Wound Center Nurse 2 3-left dorsal foot -Time 08:39 08:40 08:36 -Correct Patient Yes Yes Yes -Correct Side, Site, Position Yes Yes Yes -Correct Procedure Yes Yes Yes -Procedure Performed Yes Yes Yes -Type of Procedure Debridement Debridement Debridement -Clinical Debridement Subcutaneous Subcutaneous Subcutaneous -Tissue Removed Subcutaneous Subcutaneous Subcutaneous -Post Debridement (cm) - Length 2.1 1.5 1.3 -Post Debridement (cm) - Width 1.4 1.7 1.0 -Post Debridement (cm) - Depth 0.2 0.4 0.3 -Total Square (Post) (cm) 2.94 2.55 1.30 -Area of Debridement (cm) - Length 2.1 1.5 1.3 -Area of Debridement (cm) - Width 1.4 1.7 1.0 -Total Square (Area) (cm) 2.94 2.55 1.30 -Tunneling No No No -Undermining/Tunneling No No No -Circular Undermining No No No -Wound/Ulcer Outcome Not Healed Not Healed Not Healed -Ulcer Cleansing Rinsed/ Rinsed/ Rinsed/ Irrigated with Irrigated with Irrigated with Saline Saline Saline -Foul Odor after Cleansing No No No -Bioengineered Tissue Yes Yes Yes -Type of Bioengineered Tissue Epifix Epifix 18mm Epifix 18mm Disc Disc -Expiration Date 02/24/28 03/26/28 03/26/28 -Product Lot Number [id number] -Percent Used 100 100 100 -Bleeding Controlled with Pressure Pressure Pressure -Treatment Response Procedure Procedure Procedure Tolerated Well Tolerated Well Tolerated Well -Debridement - Subq, 1st 20sq cm No No No -Apply Skin Sub - 1st 25 sq cm - Feet 1 1 1 -Epifix (per sq cm) 4 -Epifix 18mm Disc 3 3 Pain Scale: 0-10 Numeric Is Patient Pain Free? Yes Yes Yes - Nurse 3 - General Ulcer D/C NN Start: 07/02/23 08:02 Freq: Status: Active Protocol: Activity Type Activity Date Activity User E-sign Co-sign Detail Recorded Client Recorded Date Recorded By Document 07/02/23 08:54 KW [id number] 07/02/23 08:54 KW Document 07/09/23 09:03 DL [id number] 07/09/23 09:05 DL Document 07/16/23 08:54 DL Desktop 07/16/23 08:55 DL 07/02/23 07/09/2307/16/23 08:54 09:03 08:54 Wound Care Center Nurse 3 3-left dorsal foot -Foul Odor after Cleansing No No -Other Dressing Epi Epifix -Primary Dressing Covered/Secured with Dry Gauze & Dry Gauze & Dry Gauze & Roll Gauze, Roll Gauze, Roll Gauze, Secured with Secured with Secured with Tape Tape Tape -Other Covering ABD Left -Tubular Bandage Single Layer Single Layer -Size of Tubigrip Used Size E Size E -Size E ($) 1 1 Treatment Response Procedure Tolerated Well Pain Scale: 0-10 Numeric Is Patient Pain Free? Yes Yes Yes WC - Visit Discharge Discharge Condition Stable Stable Stable Ambulatory Status Ambulatory Ambulatory Ambulatory Transportation Private Auto Private Auto Private Auto Medication Reconcilliation completed & No provided to patient/care provider Clinical Summary of Care Provided Yes Assessment/Plan Assessment/Plan (1) Non-pressure chronic ulcer of other part of left foot with fat layer exposed: CODE(S): L97.522 - Non-pressure chronic ulcer of other part of left foot with fat layer exposed (2) Pain in left foot: CODE(S): M79.672 - Pain in left foot (3) Essential hypertension: CODE(S): I10 - Essential (primary) hypertension (4) Hyperlipidemia: CODE(S): E78.5 - Hyperlipidemia, unspecified QUALIFIERS: Hyperlipidemia type: unspecified Qualified Code(s): E78.5 - Hyperlipidemia, unspecified (5) Diabetes mellitus: CODE(S): E11.9 - Type 2 diabetes mellitus without complications QUALIFIERS: Diabetes mellitus complication detail: with foot ulcer Diabetes mellitus complication status: with skin complications Diabetes mellitus skilled nursing insulin use: unspecified skilled nursing insulin use status Diabetes mellitus type: type 2 Qualified Code(s): E11.621 - Type 2 diabetes mellitus with foot ulcer; L97.509 - Non-pressure chronic ulcer of other part of unspecified foot with unspecified severity PLAN: Plan Patient seen and evaluated 10 weeks ago patient dropped hot chicken and mashed potatoes on the top of her left foot resulting in a burn to the dorsal foot with skin eschar secondary to thin skin. Wound has not progressed secondary to diabetic status. She has completed full course of Keflex. Ulceration underwent debridement as noted in the clinical panel above. Ulceration measures 1.1 cm x 0.9 cm x 0.2 cm. Ulceration does demonstrate localized rubor secondary to her burn, with improving rubor. No signs of infection. Following debridement healthy, bleeding granular tissue remained. Epifix graft #7 applied to the wound base and dressed with Adaptic touch and anchored with Steri-Strips, dressed with dry sterile dressing. She is to change the outer dressing as needed. She was instructed to not get the dressings wet. Ulcerative site demonstrates improvement with reduction in size versus previous visit. She was approved for advanced wound care product, epi fix. We will continue application. Last known A1c performed at [facility] 06/18/2022 was 6.1%. Discussed proper diabetic diet to ensure tight glycemic control. Discussed she is not to be barefoot given her diabetic status indoors or outdoors. Shoe gear was encouraged to be worn at all times. Discussed that socks count is barefoot. Discussed adequate protein intake to aid in wound healing. She may take [place] supplementation to aid in wound healing. The following work up and care recommendations were made: Dressing: EpiFix, Adaptic touch, Steri-Strips, dry sterile dressing. Change outer dressings as needed. Wash: Do not get wet Tissue growth optimization: EpiFix Offload: Ensure shoe gear does not rub on the wound site Vascular: DP and PT pulses weakly palpable however triphasic on Doppler. Adequate capillary fill time to digits. Edema: None Infection: No signs of infection Pain: May take [id number] Tylenol for discomfort Host factors: DM type II, obesity, HTN, HLD, patient education on barefoot status encouraged shoe gear to be worn. I answered all the patient's questions. To return to the wound healing center in 1 week or call sooner if the patient has any questions or concerns.
== END 2023-07-25 23:59 | disposition home or self-care (01) ==
LOC: WC 08:15
PROVIDERS: PCP Internal Medicine; Referring Provider Emergency Medicine; Visit Provider Student in an Organized Health Care Education/Training Program
DX: E11.621 Type 2 diabetes mellitus with foot ulcer (principal); L97.522 Non-pressure chronic ulcer of other part of left foot with fat layer exposed; E78.5 Hyperlipidemia, unspecified; I10 Essential (primary) hypertension; Z79.01 Long term (current) use of anticoagulants; G47.33 Obstructive sleep apnea (adult) (pediatric)
CPT/HCPCS: 15275; Q4186

== ENCOUNTER 2023-08-13 08:30 | Outpatient (RCR) | payer MEDICARE, SELFPAY ==
[2023-07-26 00:40] VITALS: BP 138/74; PULSE 88; RESP 20; TEMP 35.3; BMI 29.5
[2023-07-30 08:00] VITALS: BP 113/66; PULSE 90; RESP 20; TEMP 35.9; BMI 29.5
--- NOTE | 2023-07-30 10:04 | PCM.WC.PN ---
History of Present Illness Date of Service: 07/30/23 Chief Complaint: Nonhealing right leg ulcer. History of Wound: Ms. Red is a 78-year-old with PMHx of DM type II, A-fib, HLD, HTN, RAMESH, and obesity. She states roughly 4 weeks ago she dropped a rotisserie chicken and mashed potatoes onto the top of her left foot which resulted in significant burn to the dorsal aspect of the left foot with accompanying localized rubor. She had seen her PCP who placed her on a course of Keflex and she has finished this antibiotic to completion. She was referred to the wound care center for continued care secondary to nonhealing eschar covering the wound to the dorsal foot at the base of the third and fourth digits. Patient does state that the wound is tender to the touch. She denies any N/V/F/chills. Denies any further complaints. Subjective Subjective Patient is a 78-year-old female who follows to the wound care center with ulceration to the dorsal aspect of the left foot. She states she has been changing the outer dressings daily with the assistance of her granddaughter and daughter. Her daughter accompanies her today and states she is wound is continuing to improve and is looking smaller than last week. She denies constitutional symptoms. Denies further complaints. Objective Data Objective Data Vital Signs: Vital Signs Temp Pulse Resp BP 96.7 F L 90 20 H 113/66 07/30/23 08:00 07/30/23 08:00 07/30/23 08:00 07/30/23 08:00 Weight: 87.997 kg Body Mass Index (BMI) 29.5 Physical Exam Const alert, oriented x3 and no apparent distress General Appearance: cooperative HEENT normocephalic Eyes General Eye: normal appearance of both eyes Neck General: normal visual inspection Lymph Lymphatic: no lymphadenopathy noted and no lymphedema noted Resp normal respiratory effort Cardio regular rate and regular rhythm Extremity normal capillary refill, no joint enlargement, no calf tenderness and no pedal edema Extremity Narrative: DP and PT pulses weakly palpable. Capillary fill time is less than 4 seconds to the digits. On Doppler DP and PT are triphasic. Dermatological: There is a wound noted to the dorsal aspect of the left foot at the base of the third and fourth digits with scant yellow fibrotic tissue in the wound bed. No erythema, no purulent drainage, no malodor, no palpable fluctuance/bogginess, no visible abscess, no lymphangitic streaking. Surrounding skin is thin. Musculoskeletal: Muscle strength 5 of 5 age-appropriate. There is decreased range of motion of the ankle joint in dorsiflexion with the knee extended without pain or crepitus. Pain to palpation about ulcerative site. Skin no rashes or lesions noted, skin turgor normal and no jaundice Neuro moves all extremities Debridement Note Debridement Note Wound debrided: Left foot Laterality: Left Wound Grade/Stage: Saeed stage I Type of Debridement: Excisional debridement Anesthesia Used: 5% Lidocaine Gel Depth: Down to and including healthy tissue and in the subcutaneous layer Percentage of wound debrided: 100 Instrument Used: 3mm curette Tissue Removed: Fibrous, devitalized subcutaneous, biofilm, slough Severity: Fat Layer Exposed Amount of bleeding with debridement: Mild Bleeding Controlled with: Compression and gauze Patient tolerated procedure: Patient tolerated procedure well Post-Debridement Measurements and Additional Note: Post-Debridement Measurements/Treatment - Nurse 1 - General Ulcer Assessment Start: 07/30/23 08:00 Freq: Status: Active Protocol: [email or web address] Activity Type Activity Date Activity User E-sign Co-sign Detail Recorded Client Recorded Date Recorded By Document 07/30/23 08:00 Desktop 07/30/23 08:07 DL 07/30/23 08:00 - Today's Visit Information Type of service 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 ) Arrival Mode Ambulatory Transfer Assistance None Patient Identification Verified (Name & Yes ) Patient Requires Transmission-Based No Precautions Finger Stick Blood Sugar(mg/dl) (if 110 indicated): Blood Sugar Stated by Patient Height and Weight Body Mass Index (BMI) 29.5 BMI Classification Overweight Vital Signs Temperature (97.8 F-99.1 F) 96.7 F L Temperature Source Temporal Pulse Rate (60-100) 90 Pulse Location Monitor Respiratory Rate (12-18) 20 H Respiratory rate source Observation Blood Pressure (90/60-120/80) 113/66 Blood Pressure Mean (mm Hg) 81 Source Monitor History Since Last Visit- (Skip if this is Patient's initial visit) Have you changed medications since your No last visit? Any new allergies or adverse reactions No Had a fall/change in ADL's that may No increase risk of falls Signs or symptoms of abuse and/or No neglect since last visit Have you been in the hospital since your No last visit? Has dressing in place as prescribed Yes Has compression in place as prescribed Yes Has offloadiing in place as prescribed N/A Experienced any changes in pain level or Yes management Left Footwear Regular Shoe Right Footwear Regular Shoe Pain Scale: 0-10 Numeric Is Patient Pain Free? Yes WC - Nurse 1 - General Ulcer Measurement Start: 07/30/23 08:00 Freq: Status: Active Protocol: Activity Type Activity Date Activity User E-sign Co-sign Detail Recorded Client Recorded Date Recorded By Document 07/30/23 08:00 DL Desktop 07/30/23 08:07 DL 07/30/23 08:00 Wound Center Nurse 1 3-left dorsal foot -Current Size (cm) - Length 0.5 -Current Size (cm) - Width 0.6 -Current Size (cm) - Depth 0.1 -Total Square Cm 0.30 -Photo Taken Yes -Exudate Amt Small -Wound Margin Distinct, Outline Attached -Granulation Amt Large (67-100%) -Granulation Quality Pale -Necrosis Amt Small (1-33%) -Necrotic Tissue Type Adherent Slough -Structure Exposed N/A -Texture (Beth-wound Skin Appearance) Scarring -Moisture (Beth-wound Skin Appearance) No Abnormality -Color (Beth-wound Skin Appearance) No Abnormality -Temperature (Beth-wound Skin No Abnormality Appearance) (Pt Warm) -Tenderness on Palpation (Beth-wound No Skin Appearance) -Ulcer Cleansing Soap and Water -Foul Odor after Cleansing No -Anesthetic Used 5% Lidocaine Gel Left Calf (cm) 36.5 Left Ankle (cm) 21.9 Assessment/Plan Assessment/Plan (1) Non-pressure chronic ulcer of other part of left foot with fat layer exposed: CODE(S): L97.522 - Non-pressure chronic ulcer of other part of left foot with fat layer exposed (2) Pain in left foot: CODE(S): M79.672 - Pain in left foot (3) Essential hypertension: CODE(S): I10 - Essential (primary) hypertension (4) Hyperlipidemia: CODE(S): E78.5 - Hyperlipidemia, unspecified QUALIFIERS: Hyperlipidemia type: unspecified Qualified Code(s): E78.5 - Hyperlipidemia, unspecified (5) Diabetes mellitus: CODE(S): E11.9 - Type 2 diabetes mellitus without complications QUALIFIERS: Diabetes mellitus type: type 2 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 Wound has not progressed secondary to diabetic status. She has completed full course of Keflex. Ulceration underwent debridement as noted in the clinical panel above. Ulceration measures 0.8 cm x 0.7 cm x 0.1 cm. Ulceration does demonstrate localized rubor secondary to her burn, with improving rubor. No signs of infection. Following debridement healthy, bleeding granular tissue remained. Epifix graft #8 applied to the wound base and dressed with Adaptic touch and anchored with Steri-Strips, dressed with dry sterile dressing. She is to change the outer dressing as needed. She was instructed to not get the dressings wet. Ulcerative site demonstrates improvement with reduction in size versus previous visit. She was approved for advanced wound care product, epi fix. We will continue application. Last known A1c performed at [facility] 06/18/2022 was 6.1%. Discussed proper diabetic diet to ensure tight glycemic control. Discussed she is not to be barefoot given her diabetic status indoors or outdoors. Shoe gear was encouraged to be worn at all times. Discussed that socks count is barefoot. Discussed adequate protein intake to aid in wound healing. She may take Bonifacio supplementation to aid in wound healing. The following work up and care recommendations were made: Dressing: EpiFix, Adaptic touch, Steri-Strips, dry sterile dressing. Change outer dressings as needed. Wash: Do not get wet Tissue growth optimization: EpiFix Offload: Ensure shoe gear does not rub on the wound site Vascular: DP and PT pulses weakly palpable however triphasic on Doppler. Adequate capillary fill time to digits. Edema: None Infection: No signs of infection Pain: May take [id number] Tylenol for discomfort Host factors: DM type II, obesity, HTN, HLD, patient education on barefoot status encouraged shoe gear to be worn. I answered all the patient's questions. To return to the wound healing center in 1 week or call sooner if the patient has any questions or concerns.
[2023-08-13 08:15] VITALS: BP 160/99; PULSE 95; RESP 18; TEMP 36.4; BMI 29.5
--- NOTE | 2023-08-14 00:30 | PCM.WC.PN ---
History of Present Illness Date of Service: 08/13/23 Chief Complaint: Nonhealing right leg ulcer. History of Wound: Ms. Red is a 78-year-old with PMHx of DM type II, A-fib, HLD, HTN, RAMESH, and obesity. She states roughly 4 weeks ago she dropped a rotisserie chicken and mashed potatoes onto the top of her left foot which resulted in significant burn to the dorsal aspect of the left foot with accompanying localized rubor. She had seen her PCP who placed her on a course of Keflex and she has finished this antibiotic to completion. She was referred to the wound care center for continued care secondary to nonhealing eschar covering the wound to the dorsal foot at the base of the third and fourth digits. Patient does state that the wound is tender to the touch. She denies any N/V/F/chills. Denies any further complaints. Subjective Subjective Patient is a 78-year-old female who follows to the wound care center with ulceration to the dorsal aspect of the left foot. She states she has been changing the outer dressings daily with the assistance of her granddaughter and daughter. She states she can tell the wound is continuing to improve and is looking smaller than last week. She denies constitutional symptoms. Denies further complaints. Objective Data Objective Data Vital Signs: Vital Signs Temp Pulse Resp BP O2 Del Method 97.6 F L 95 18 160/99 H Room Air 08/13/23 08:15 08/13/23 08:15 08/13/23 08:15 08/13/23 08:15 08/13/23 08:15 Oxygen Delivery Method Room Air Weight: 87.997 kg Body Mass Index (BMI) 29.5 Physical Exam Const alert, oriented x3 and no apparent distress General Appearance: cooperative HEENT normocephalic Eyes General Eye: normal appearance of both eyes Neck General: normal visual inspection Lymph Lymphatic: no lymphadenopathy noted and no lymphedema noted Resp normal respiratory effort Cardio regular rate and regular rhythm Extremity normal capillary refill, no joint enlargement, no calf tenderness and no pedal edema Extremity Narrative: DP and PT pulses weakly palpable. Capillary fill time is less than 4 seconds to the digits. On Doppler DP and PT are triphasic. Dermatological: There is a wound noted to the dorsal aspect of the left foot at the base of the third and fourth digits with scant yellow fibrotic tissue in the wound bed. No erythema, no purulent drainage, no malodor, no palpable fluctuance/bogginess, no visible abscess, no lymphangitic streaking. Surrounding skin is thin. Musculoskeletal: Muscle strength 5 of 5 age-appropriate. There is decreased range of motion of the ankle joint in dorsiflexion with the knee extended without pain or crepitus. Pain to palpation about ulcerative site. Skin no rashes or lesions noted, skin turgor normal and no jaundice Neuro moves all extremities Debridement Note Debridement Note Wound debrided: Left foot Laterality: Left Wound Grade/Stage: Saeed stage I Type of Debridement: Excisional debridement Anesthesia Used: 5% Lidocaine Gel Depth: Down to and including healthy tissue and in the subcutaneous layer Percentage of wound debrided: 100 Instrument Used: 5mm curette Tissue Removed: Fibrous, devitalized subcutaneous, biofilm, slough Severity: Fat Layer Exposed Amount of bleeding with debridement: Mild Bleeding Controlled with: Compression and gauze Patient tolerated procedure: Patient tolerated procedure well Post-Debridement Measurements and Additional Note: Post-Debridement Measurements/Treatment - Nurse 1 - General Ulcer Assessment Start: 07/30/23 08:00 Freq: Status: Active Protocol: [email or web address] Activity Type Activity Date Activity User E-sign Co-sign Detail Recorded Client Recorded Date Recorded By Document 07/30/23 08:00 DL Desktop 07/30/23 08:07 DL Document 08/13/23 08:15 KW Desktop 08/13/23 08:23 KW 07/30/23 08/13/23 08:00 08:15 - Today's Visit Information Type of service Follow-up Visit Follow-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 (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 ) ) Arrival Mode Ambulatory Ambulatory Transfer Assistance None Patient Identification Verified (Name & Yes Yes ) Patient Requires Transmission-Based No Precautions Finger Stick Blood Sugar(mg/dl) (if 110 122 indicated): Blood Sugar Stated by Stated by Patient Patient Height and Weight Body Mass Index (BMI) 29.5 29.5 BMI Classification Overweight Overweight Vital Signs Temperature (97.8 F-99.1 F) 96.7 F L 97.6 F L Temperature Source Temporal Temporal Pulse Rate (60-100) 90 95 Pulse Location Monitor Monitor Respiratory Rate (12-18) 20 H 18 Respiratory rate source Observation Observation Oxygen Delivery Method Room Air Blood Pressure (90/60-120/80) 113/66 160/99 H Blood Pressure Mean (mm Hg) 81 119 Source Monitor Monitor Position Semi-Fowlers Blood Pressure Location Left Arm History Since Last Visit- (Skip if this is Patient's initial visit) Have you changed medications since your No No last visit? Any new allergies or adverse reactions No No Had a fall/change in ADL's that may No No increase risk of falls Signs or symptoms of abuse and/or No No neglect since last visit Have you been in the hospital since your No No last visit? Has dressing in place as prescribed Yes Yes Has compression in place as prescribed Yes Yes Has offloadiing in place as prescribed N/A No Experienced any changes in pain level or Yes No management Left Footwear Regular Shoe Regular Shoe Right Footwear Regular Shoe Regular Shoe Pain Scale: 0-10 Numeric Is Patient Pain Free? Yes Yes WC - Nurse 1 - General Ulcer Measurement Start: 07/30/23 08:00 Freq: Status: Active Protocol: Activity Type Activity Date Activity User E-sign Co-sign Detail Recorded Client Recorded Date Recorded By Document 07/30/23 08:00 DL Desktop 07/30/23 08:07 DL Document 08/13/23 08:15 KW Desktop 08/13/23 08:23 KW 07/30/23 08/13/23 08:00 08:15 Wound Center Nurse 1 3-left dorsal foot -Current Size (cm) - Length 0.5 0.7 -Current Size (cm) - Width 0.6 0.7 -Current Size (cm) - Depth 0.1 0.1 -Total Square Cm 0.30 0.49 -Photo Taken Yes -Exudate Amt Small Small -Exudate Type Serosanguineous -Wound Margin Distinct, Distinct, Outline Outline Attached Attached -Granulation Amt Large (67-100%) -Granulation Quality Pale -Necrosis Amt Small (1-33%) -Necrotic Tissue Type Adherent Slough -Structure Exposed N/A -Texture (Beth-wound Skin Appearance) Scarring Assessed -Moisture (Beth-wound Skin Appearance) No Abnormality Assessed -Color (Beth-wound Skin Appearance) No Abnormality Assessed -Temperature (Beth-wound Skin No Abnormality No Abnormality Appearance) (Pt Warm) (Pt Warm) -Tenderness on Palpation (Beth-wound No Skin Appearance) -Ulcer Cleansing Soap and Water Soap and Water -Foul Odor after Cleansing No No -Anesthetic Used 5% Lidocaine 5% Lidocaine Gel Gel -Wound Comment(s) scabbed Left Calf (cm) 36.5 37 Left Ankle (cm) 21.9 22.5 WC - Nurse 2 - General Ulcer CM Notes Start: 07/30/23 08:00 Freq: Status: Active Protocol: Activity Type Activity Date Activity User E-sign Co-sign Detail Recorded Client Recorded Date Recorded By Document 07/30/23 16:20 PL [id number] 07/30/23 16:22 PL Document 08/13/23 16:19 PL [id number] 08/13/23 16:21 PL 07/30/23 08/13/23 16:20 16:19 Wound Center Nurse 2 3-left dorsal foot -Time 08:55 09:11 -Correct Patient Yes Yes -Correct Side, Site, Position Yes Yes -Correct Procedure Yes Yes -Procedure Performed Yes Yes -Type of Procedure Debridement Debridement -Clinical Debridement Subcutaneous Subcutaneous -Tissue Removed Subcutaneous Subcutaneous -Post Debridement (cm) - Length 0.8 0.5 -Post Debridement (cm) - Width 0.7 0.3 -Post Debridement (cm) - Depth 0.1 0.1 -Total Square (Post) (cm) 0.56 0.15 -Area of Debridement (cm) - Length 0.8 0.5 -Area of Debridement (cm) - Width 0.7 0.3 -Total Square (Area) (cm) 0.56 0.15 -Tunneling No No -Undermining/Tunneling No No -Circular Undermining No No -Wound/Ulcer Outcome Not Healed Not Healed -Ulcer Cleansing Rinsed/ Rinsed/ Irrigated with Irrigated with Saline Saline -Foul Odor after Cleansing No No -Bioengineered Tissue Yes Yes -Type of Bioengineered Tissue Epifix 18mm Epifix 18mm Disc Disc -Expiration Date 04/25/28 04/25/28 -Product Lot Number [id number] -Percent Used 100 100 -Bleeding Controlled with Pressure Pressure -Treatment Response Procedure Procedure Tolerated Well Tolerated Well -Debridement - Subq, 1st 20sq cm No No -Apply Skin Sub - 1st 25 sq cm - Feet 1 1 -Epifix 18mm Disc 3 3 Pain Scale: 0-10 Numeric Is Patient Pain Free? Yes Yes - Nurse 3 - General Ulcer D/C NN Start: 07/30/23 08:00 Freq: Status: Active Protocol: Activity Type Activity Date Activity User E-sign Co-sign Detail Recorded Client Recorded Date Recorded By Document 08/13/23 09:20 KW Desktop 08/13/23 09:21 KW 08/13/23 09:20 Wound Care Center Nurse 3 3-left dorsal foot -Ulcer Cleansing Rinsed/ Irrigated with Saline -Primary Dressing Covered/Secured with Dry Gauze & Roll Gauze, Secured with Tape Pain Scale: 0-10 Numeric Is Patient Pain Free? Yes WC - Visit Discharge Discharge Condition Stable Ambulatory Status Ambulatory Transportation Private Auto Medication Reconcilliation completed & No provided to patient/care provider Clinical Summary of Care Provided Yes Assessment/Plan Assessment/Plan (1) Non-pressure chronic ulcer of other part of left foot with fat layer exposed: CODE(S): L97.522 - Non-pressure chronic ulcer of other part of left foot with fat layer exposed (2) Pain in left foot: CODE(S): M79.672 - Pain in left foot (3) Essential hypertension: CODE(S): I10 - Essential (primary) hypertension (4) Hyperlipidemia: CODE(S): E78.5 - Hyperlipidemia, unspecified QUALIFIERS: Hyperlipidemia type: unspecified Qualified Code(s): E78.5 - Hyperlipidemia, unspecified (5) Diabetes mellitus: CODE(S): E11.9 - Type 2 diabetes mellitus without complications QUALIFIERS: Diabetes mellitus type: type 2 Diabetes mellitus [facility] insulin use: unspecified 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 Wound has not progressed secondary to diabetic status. She has completed full course of Keflex. Ulceration underwent debridement as noted in the clinical panel above. Ulceration measures 0.5 cm x 0.3 cm x 0.1 cm. Ulceration does demonstrate resolution of the previous rubor. No signs of infection. Following debridement healthy, bleeding granular tissue remained. Epifix graft #9 applied to the wound base and dressed with Adaptic touch and anchored with Steri-Strips, dressed with dry sterile dressing. She is to change the outer dressing as needed. She was instructed to not get the dressings wet. Ulcerative site demonstrates improvement with reduction in size versus previous visit. She was approved for advanced wound care product, epi fix. We will continue application. Last known A1c performed at [facility] 06/18/2022 was 6.1%. Discussed proper diabetic diet to ensure tight glycemic control. Discussed she is not to be barefoot given her diabetic status indoors or outdoors. Shoe gear was encouraged to be worn at all times. Discussed that socks count is barefoot. Discussed adequate protein intake to aid in wound healing. She may take Bonifacio supplementation to aid in wound healing. Discussed signs and symptoms of infection. Discussed if she notices redness about the wound site moving up the foot, purulent drainage from the wound site, increasing foul odor, or fever greater than 101 degree, nausea, vomiting, chills these are signs of progressing infection and she needs to go to the ED. She voices understanding of this. The following work up and care recommendations were made: Dressing: EpiFix, Adaptic touch, Steri-Strips, dry sterile dressing. Change outer dressings as needed. Wash: Do not get wet Tissue growth optimization: EpiFix Offload: Ensure shoe gear does not rub on the wound site Vascular: DP and PT pulses weakly palpable however triphasic on Doppler. Adequate capillary fill time to digits. Edema: None Infection: No signs of infection Pain: May take [id number] Tylenol for discomfort Host factors: DM type II, obesity, HTN, HLD, patient education on barefoot status encouraged shoe gear to be worn. I answered all the patient's questions. To return to the wound healing center in 2 weeks or call sooner if the patient has any questions or concerns.
== END 2023-08-25 23:59 | disposition home or self-care (01) ==
LOC: WC 08:30
PROVIDERS: PCP Internal Medicine; Referring Provider Emergency Medicine; Visit Provider Student in an Organized Health Care Education/Training Program
DX: E11.621 Type 2 diabetes mellitus with foot ulcer (principal); L97.522 Non-pressure chronic ulcer of other part of left foot with fat layer exposed; I48.91 Unspecified atrial fibrillation; M79.672 Pain in left foot; I10 Essential (primary) hypertension; E78.5 Hyperlipidemia, unspecified; G47.33 Obstructive sleep apnea (adult) (pediatric)
CPT/HCPCS: 15275; Q4186

== ENCOUNTER 2023-09-01 15:00 | Emergency (ER) | payer MEDICARE, SELFPAY ==
[2023-09-01 15:01] VITALS: BP 154/102; PULSE 69; RESP 18; TEMP 36.3; O2SAT 99
--- NOTE | 2023-09-01 15:09 | EDS_ITS ---
HPI HPI - Fall History of Present Illness Chief Complaint: Fall Informant: patient Occured/Mechanism Occurred: Today Mechanism/Context: Yes same level fall and Yes trip Narrative: Over dog Pain/Injury Pain Location: head and neck Current Severity: Moderate Maximum Severity: Severe Worsened by: Moving head/neck Relieved by: Remaining still Associated Symptoms Associated Symptoms: Negative for Parasthesias, Weakness, Loss of function, Inability to ambulate, Loss of consciousness or Amnesia Narrative Narrative: Patient states she was letting one of her dogs out at home, the other dog caused her to accidentally trip, she fell backwards hitting her head on a nearby kitchen table. No other injuries, just her head/upper neck. She is on warfarin due to atrial fibrillation. No recent bleeding from anywhere. No recent illness. No prodromal symptoms causing this fall. 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 Obesity RAMESH (obstructive sleep apnea) Other secondary pulmonary hypertension Palpitations Pneumonia Shoulder dislocation Home Medications warfarin 5 mg tablet 5 mg PO DAILY blood thinner 11/18/18 [History Last Taken 06/15/22] atorvastatin 10 mg tablet 10 mg PO QHS cholesterol 12/11/19 [History Last Taken 06/15/22] TENS unit electrodes #2 ea 07/11/20 [History Last Taken Unknown] oxycodone-acetaminophen 5 mg-325 mg tablet 1 tab PO DAILY PRN pain 12/07/20 [History Last Taken 06/15/22] cyclobenzaprine 10 mg tablet 5 - 10 mg PO BID PRN Spasms 06/17/22 [History Last Taken 06/16/22] magnesium oxide 400 mg PO DAILY supplement 06/17/22 [History Last Taken 2] metformin 500 mg tablet,extended release 24 hr 1,000 mg PO BID DM 06/17/22 [History Last Taken 06/16/22] gabapentin 300 mg capsule 300 mg PO BREAKFAST nerve pain 08/04/22 [History Last Taken Unknown] gabapentin 300 mg capsule 600 mg PO QHS Neuropathy 08/04/22 [History Last Taken Unknown] budesonide-formoterol HFA 160 mcg-4.5 mcg/actuation aerosol inhaler (Symbicort) 2 puff inhalation BID asthma #10.2 grams 10/14/22 [Rx Last Taken Unknown] albuterol sulfate 90 mcg/actuation aerosol inhaler 2 puff inhalation Q4H PRN shortness of breath or wheezing #8.5 grams 05/24/23 [Rx Last Taken Unknown] Allergy/AdvReac Type Severity Reaction Status Date / Time amoxicillin Allergy Severe Hives Verified 09/01/23 15:01 aspirin Allergy Severe Hives, SOB Verified 09/01/23 15:01 Sulfa (Sulfonamide Allergy Severe Hives Verified 09/01/23 15:01 Antibiotics) Family History Mother Diabetes Father CAD (coronary artery disease) Sister Lung cancer Son Kidney stone Surgical History History of appendectomy History of kidney surgery Presence of permanent cardiac pacemaker (04/01/19) Social History household members: none housing: house number of children: 3 current occupational status: retired Smoking Status: Never smoker alcohol intake: never substance use type: does not use what type of physical activity do you participate in: none do you feel safe at home: Yes ROS ROS ED Constitutional Constitutional ED: Denies chills or fever(s) Eyes Eyes: Denies change in vision or diplopia ENT ENT ED: Denies ear pain, epistaxis, facial pain or rhinorrhea Cardiovascular Cardiovascular: Denies chest pain or palpitations Respiratory/Chest Respiratory/Chest: Denies cough or dyspnea Gastrointestinal Gastrointestinal: Denies abdominal pain, diarrhea, melena, nausea or vomiting Genitourinary Genitourinary ED: Denies dysuria or hematuria Musculoskeletal Musculoskeletal: Reports neck pain; Denies back pain or extremity pain Integumentary Denies abscess, Abrasions, laceration or rash Neurologic Neurologic: Reports other Details: Mild headache earlier, resolved ; Denies confusion, headache(s), paresthesias or weakness EXAM Physical Exam Const Vital Signs: 09/01/23 15:01 09/01/23 15:30 Temperature 97.4 F L Temperature Source Temporal Pulse Rate 69 Respiratory Rate 18 Respiratory Effort Normal Non-Labored Respiratory Depth Normal Respiratory Pattern Normal Blood Pressure 154/102 H Blood Pressure Mean 119 Pulse Ox 99 Oxygen Delivery Method Room Air Room Air Positive well nourished and well developed General Appearance ED: well developed and NAD HEENT Reports TM's clear and nasal mucous membranes and turbinates normal HEENT Narrative: Traumatic contusion, no boggy hematoma, posterior head caudal to the occiput. No crepitance or depression. No other signs of HEENT trauma. trauma Face and Sinus: Negative for facial tenderness Tympanic Membrane ED: Yes TM's clear Eyes PERRL and EOMs intact bilaterally Visual Acuity: other Other Details: no entrapment or pain with extraocular movements Neck full ROM and supple Neck Narrative: Tender throughout upper back no deformities, can move without limitations. S wollen over this area due to the injury. General: tenderness Chest Wall inspection of chest normal and palpation of chest normal Chest: symmetrical chest wall rise; Negative for crepitus or tenderness Resp normal respiratory effort and clear to auscultation bilaterally Percussion: other equal BS bilat GI normal to inspection, nondistended, normoactive bowel sounds, soft to palpation and non-tender Back/Spine normal ROM Cervical Spine: Negative for cervical spine tenderness Thoracic Spine / Upper Back: Negative for thoracic spinal tenderness Lumbar Spine / Lower Back: Negative for lumbar spinal tenderness Extremity normal to inspection and full ROM General Extremety ED: Negative for tenderness Neuro oriented x3, CN's II-XII intact bilaterally, moves all extremities, no focal motor deficits and no sensory deficits noted [place] Coma Scale: document GCS findings Spontaneous Obeys Commands Oriented 15 Sensorium / Orientation: awake and alert Psych mental status grossly normal and thought process normal Skin no wounds Lesions: no lesions Rashes: no rashes MDM MDM MDM Narrative Medical decision making narrative: Check patient's INR is therapeutic at 2.5. CT of the head and cervical spine were obtained given signs of trauma involving both, basically at the junction. I reviewed the images and the report which I agree with, basically negative for anything acute, intracranial bleed or fracture. Patient reassured, she was offered analgesics like Tylenol and she declined, supportive care advised she was given an ice pack. Lab Data Attestation: I reviewed the patient's lab results. Labs: Laboratory Results - last 24 hr 09/01/23 15:27 PT 27.3 H INR 2.5 Radiography Diagnostic Testing: Clinical Impression(s) from Imaging Studies Brain CT 09/01/23 16:10 IMPRESSION: 1. No acute intracranial abnormality. There has been no significant change from the reference exam. 2. Stable underlying senescent change with small vessel ischemia. Electronically Signed: Adrien Brownlee MD at 16:39 EST , Cervical Spine CT 09/01/23 16:10 IMPRESSION: 1. No acute osseous abnormalities of the cervical spine. 2. Multilevel degenerative change with disc space narrowing, facet hypertrophy and bony neural foraminal narrowing. Electronically Signed: Adrien Brownlee MD at 16:41 EST , Discharge Plan Triage Chief Complaint: Fall ED Provider: Pete Che Dx/Rx/DC Orders Clinical Impression: Closed head injury without concussion, Fall from slip, trip, or stumble, Warfarin-induced coagulopathy, Contusion of neck Instructions: ED Head Injury (Adult) Prescriptions: No Action oxycodone-acetaminophen 5-325 mg tablet 1 tab PO DAILY PRN (Reason: pain) (DME) TENS unit electrodes Pad See Rx Instructions .ROUTE .MEDSUPPLY Qty: 2 Rx Instructions: As directed Symbicort 160-4.5 mcg/actuation HFA aerosol inhaler 2 puff INHALATION BID Qty: 10.2 11RF warfarin 5 MG tablet 5 mg PO DAILY Protocol: Dose Management Condition: Thursday Dose/Route: 2.5 mg Instruction: 0.5 x 5 mg tablets Condition: Thursday Dose/Route: 5 mg Instruction: 1 x 5 mg tablet Condition: Thursday Dose/Route: 5 mg Instruction: 1 x 5 mg tablet Condition: Thursday Dose/Route: 5 mg Instruction: 1 x 5 mg tablet Condition: Dose/Route: 5 mg Instruction: 1 x 5 mg tablet Condition: Thursday Dose/Route: 2.5 mg Instruction: 0.5 x 5 mg tablets Condition: Thursday Dose/Route: 2.5 mg Instruction: 0.5 x 5 mg tablets Protocol Text: Adjustment Start Date: Thursday07/10/23 INR Value: 2.3 INR Date: 07/10/23 Recheck Date: 07/31/23 Rx Instructions: 5 mg. , , THU atorvastatin 10 MG tablet 10 mg PO QHS gabapentin 300 mg capsule 600 mg PO QHS cyclobenzaprine 10 mg Tablet 5 - 10 mg PO BID PRN (Reason: Spasms) metformin 500 mg tablet extended release 24 hr 1,000 mg PO BID Patient Comments: Take 2 tablets by mouth twice daily with meals. magnesium oxide 400 mg magnesium Tablet 400 mg PO DAILY gabapentin 300 mg capsule 300 mg PO BREAKFAST Patient Comments: Take 2 capsules by mouth daily at bedtime AND 1 capsule every morning. Rx Instructions: 300 mg orally; albuterol sulfate 90 mcg/actuation HFA aerosol inhaler 2 puff INHALATION Q4H PRN (Reason: shortness of breath or wheezing) Qty: 8.5 6RF Rx Instructions: administer with spacer Primary Care Provider: Ro Reed Referrals: Ro Reed MD [Primary Care Provider] - As Needed Disposition Disposition: Home, Self Care
[2023-09-01 15:42] LABS: International Normalized Ratio 2.5; Prothrombin Time (Protime)PT. 27.3 SECONDS (11.7-14.9)
--- NOTE | 2023-09-01 16:10 | CT_ITS ---
EXAM: CT CERVICAL SPINE WITHOUT INTRAVENOUS CONTRAST CLINICAL INDICATION: neck trauma TECHNIQUE: Helically acquired images were obtained of the cervical spine without intravenous contrast. 2D reformatted images were reviewed. This CT exam was performed using one or more of the following dose reduction techniques: automated exposure control, adjustment of the mA and/or kV according to patient size, and/or use of iterative reconstruction technique. COMPARISON: No relevant prior studies available. FINDINGS: VERTEBRAE: See below. DISCS/SPINAL CANAL/NEURAL FORAMINA: Mild disc space narrowing at C6-7. There is facet hypertrophy with left bony neural foraminal narrowing at C2-3. There is facet hypertrophy with right bony neural foraminal narrowing at C3-4. There is facet hypertrophy and right bony neural foraminal narrowing at C4-5. There is facet hypertrophy bilateral bony neural foraminal narrowing at C6-7. SOFT TISSUES: Unremarkable. No prevertebral soft tissue swelling. LYMPH NODES: Unremarkable. No cervical adenopathy. LUNG APICES: Unremarkable as visualized. Clear. CT/Spine Cervical without Contras IMPRESSION: 1. No acute osseous abnormalities of the cervical spine. 2. Multilevel degenerative change with disc space narrowing, facet hypertrophy and bony neural foraminal narrowing. Electronically Signed: Adrien Brownlee MD at 16:41 EST ,
--- NOTE | 2023-09-01 16:10 | CT_ITS ---
EXAM: CT HEAD WITHOUT INTRAVENOUS CONTRAST CLINICAL INDICATION: trauma TECHNIQUE: Multiple axial images were obtained of the head without intravenous contrast. This CT exam was performed using one or more of the following dose reduction techniques: automated exposure control, adjustment of the mA and/or kV according to patient size, and/or use of iterative reconstruction technique. COMPARISON: 03/18/2023 FINDINGS: BRAIN AND EXTRA-AXIAL SPACES: There is mild enlargement of the ventricular system and cortical sulci. There is hypoattenuation in the periventricular white matter. No intra- or extra-axial hemorrhage. No evidence of acute infarct. No intracranial mass or mass effect. There is preservation of the carmen/white matter interface. Posterior fossa structures are unremarkable. Basal cisterns are patent. BONES/JOINTS: The calvarium is intact and the visualized paranasal sinuses are well aerated. No discrete lytic or blastic abnormalities. SINUSES: See above. MASTOID AIR CELLS: Unremarkable. Clear. ORBITS: Visualized globes, extraocular muscles, optic nerves and retrobulbar fat appear unremarkable. CT/Brain/Head without Contrast IMPRESSION: 1. No acute intracranial abnormality. There has been no significant change from the reference exam. 2. Stable underlying senescent change with small vessel ischemia. Electronically Signed: Adrien Brownlee MD at 16:39 EST ,
[2023-09-01 17:52] VITALS: BP 150/83; PULSE 70; RESP 16
== END 2023-09-01 17:54 | disposition home or self-care (01) ==
PROVIDERS: Emergency Provider Emergency Medicine; PCP Internal Medicine; Visit Provider Emergency Medicine
DX: S09.90XA Unspecified injury of head, initial encounter (principal); I48.91 Unspecified atrial fibrillation; E11.9 Type 2 diabetes mellitus without complications; S10.93XA Contusion of unspecified part of neck, initial encounter; R79.1 Abnormal coagulation profile; Z79.01 Long term (current) use of anticoagulants; G47.33 Obstructive sleep apnea (adult) (pediatric); Z86.16 Personal history of COVID-19; Z95.0 Presence of cardiac pacemaker; W18.30XA Fall on same level, unspecified, initial encounter
CPT/HCPCS: 70450; 72125; 85610; 99283; A4216

== ENCOUNTER 2023-09-03 07:55 | Outpatient (RCR) | payer MEDICARE, SELFPAY ==
[2023-08-26 00:48] VITALS: BP 160/99; PULSE 95; RESP 18; TEMP 36.4; BMI 29.5
[2023-09-03 08:05] VITALS: BP 176/87; PULSE 91; TEMP 36.1; O2SAT 97; BMI 29.5
--- NOTE | 2023-09-03 08:36 | PN.PCM_ITS ---
History of Present Illness Date of Service: 09/03/23 Chief Complaint: Nonhealing right leg ulcer. History of Wound: Ms. Red is a 78-year-old with PMHx of DM type II, A-fib, HLD, HTN, RAMESH, and obesity. She states roughly 4 weeks ago she dropped a rotisserie chicken and mashed potatoes onto the top of her left foot which resulted in significant burn to the dorsal aspect of the left foot with accompanying localized rubor. She had seen her PCP who placed her on a course of Keflex and she has finished this antibiotic to completion. She was referred to the wound care center for continued care secondary to nonhealing eschar covering the wound to the dorsal foot at the base of the third and fourth digits. Patient does state that the wound is tender to the touch. She denies any N/V/F/chills. Denies any further complaints. Subjective Subjective Patient is a 78-year-old female who follows to the wound care center with ulceration to the dorsal aspect of the left foot. She states she has been changing the outer dressings daily with the assistance of her granddaughter and daughter. She denies constitutional symptoms. Denies further complaints. Objective Data Objective Data Vital Signs: Vital Signs Temp Pulse Resp BP Pulse Ox O2 Del Method 97 F L 91 18 176/87 H 97 Room Air 09/03/23 08:05 09/03/23 08:05 08/26/23 00:48 09/03/23 08:05 09/03/23 08:05 09/03/23 08:05 Oxygen Delivery Method Room Air Weight: 87.997 kg Body Mass Index (BMI) 29.5 Physical Exam Const alert, oriented x3 and no apparent distress General Appearance: cooperative HEENT normocephalic Eyes General Eye: normal appearance of both eyes Neck General: normal visual inspection Lymph Lymphatic: no lymphadenopathy noted and no lymphedema noted Resp normal respiratory effort Cardio regular rate and regular rhythm Extremity normal capillary refill, no joint enlargement, no calf tenderness and no pedal edema Extremity Narrative: DP and PT pulses weakly palpable. Capillary fill time is less than 4 seconds to the digits. On Doppler DP and PT are triphasic. Dermatological: Wound to the dorsal aspect of the left foot near the base of the third and fourth digits has healed. Surrounding skin is thin. Musculoskeletal: Muscle strength 5 of 5 age-appropriate. There is decreased range of motion of the ankle joint in dorsiflexion with the knee extended without pain or crepitus. Skin no rashes or lesions noted, skin turgor normal and no jaundice Neuro moves all extremities Debridement Note Debridement Note No debridement was completed: No debridement was completed today Post-Debridement Measurements and Additional Note: Post-Debridement Measurements/Treatment WC - Nurse 1 - General Ulcer Assessment Start: 09/03/23 08:04 Freq: Status: Active Protocol: MENAEXLiz Activity Type Activity Date Activity User E-sign Co-sign Detail Recorded Client Recorded Date Recorded By Document 09/03/23 08:05 [employer] 09/03/23 08:16 KW 09/03/23 08:05 WC - Today's Visit Information Type of service Follow-up Visit (Physician/EMPLOYMENT ADVISOR ) Arrival Mode Ambulatory Patient Identification Verified (Name & Yes ) Height and Weight Body Mass Index (BMI) 29.5 BMI Classification Overweight Vital Signs Temperature (97.8 F-99.1 F) 97 F L Temperature Source Temporal Pulse Rate (60-100) 91 Pulse Location Monitor Respiratory rate source Observation Pulse Oximetry 97 Oxygen Delivery Method Room Air Blood Pressure (90/60-120/80) 176/87 H Blood Pressure Mean (mm Hg) 116 Source Monitor Position Semi-Fowlers Blood Pressure Location Left Arm History Since Last Visit- (Skip if this is Patient's initial visit) Have you changed medications since your No last visit? Any new allergies or adverse reactions No Had a fall/change in ADL's that may Yes increase risk of falls Signs or symptoms of abuse and/or No neglect since last visit Have you been in the hospital since your Yes last visit? Has dressing in place as prescribed Yes Has compression in place as prescribed Yes Has offloadiing in place as prescribed No Experienced any changes in pain level or No management Left Footwear Regular Shoe Right Footwear Regular Shoe Pain Scale: 0-10 Numeric Is Patient Pain Free? Yes - Nurse 1 - General Ulcer Measurement Start: 09/03/23 08:04 Freq: Status: Active Protocol: Activity Type Activity Date Activity User E-sign Co-sign Detail Recorded Client Recorded Date Recorded By Document 09/03/23 08:05 KW [employer] 09/03/23 08:16 KW 09/03/23 08:05 Wound Center Nurse 1 3-left dorsal foot -Texture (Beth-wound Skin Appearance) Assessed -Moisture (Beth-wound Skin Appearance) Assessed -Color (Beth-wound Skin Appearance) Assessed -Ulcer Cleansing Soap and Water -Anesthetic Used 5% Lidocaine Gel -Wound Comment(s) scabbed Assessment/Plan Assessment/Plan (1) Non-pressure chronic ulcer of other part of left foot with fat layer exposed: CODE(S): L97.522 - Non-pressure chronic ulcer of other part of left foot with fat layer exposed (2) Pain in left foot: CODE(S): M79.672 - Pain in left foot (3) Diabetes mellitus: CODE(S): E11.9 - Type 2 diabetes mellitus without complications QUALIFIERS: Diabetes mellitus complication detail: with foot ulcer Diabetes mellitus complication status: with skin complications 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: 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 mcc insulin use status Diabetes mellitus type: type 2 Qualified Code(s): E11.621 - Type 2 diabetes mellitus with foot ulcer; L97.509 - Non-pressure chronic ulcer of other part of unspecified foot with unspecified severity (4) Hyperlipidemia: CODE(S): E78.5 - Hyperlipidemia, unspecified QUALIFIERS: Hyperlipidemia type: unspecified Qualified Code(s): E78.5 - Hyperlipidemia, unspecified (5) Essential hypertension: CODE(S): I10 - Essential (primary) hypertension PLAN: Plan Patient seen and evaluated 14 weeks ago patient dropped hot chicken and mashed potatoes on the top of her left foot resulting in a burn to the dorsal foot with skin eschar secondary to thin skin. Wound has not progressed secondary to diabetic status. She has completed full course of Keflex. Ulceration has healed today. Overlying skin is still sensitive. She was instructed to keep a Band-Aid covering over the previous wound site for added protection of skin and may discontinue application after 7 days. Last known A1c performed at [facility] 06/18/2022 was 6.1%. Discussed proper diabetic diet to ensure tight glycemic control. Discussed she is not to be barefoot given her diabetic status indoors or outdoors. Shoe gear was encouraged to be worn at all times. Discussed that socks count is barefoot. The following work up and care recommendations were made: Dressing: Band-Aid for next 7 to 10 days Wash: May wash with soap and water Tissue growth optimization: None Offload: Ensure shoe gear does not rub on the wound site Vascular: DP and PT pulses weakly palpable however triphasic on Doppler. Adequate capillary fill time to digits. Edema: None Infection: No signs of infection Pain: May take [id number] Tylenol for discomfort Host factors: DM type II, obesity, HTN, HLD, patient education on barefoot status encouraged shoe gear to be worn. At this time with healed status patient is discharged from the wound care center today. I answered all the patient's questions. To return to the wound healing center as needed or call sooner if the patient has any questions or concerns.
== END 2023-09-03 16:00 | disposition home or self-care (01) ==
LOC: WC 07:55
PROVIDERS: PCP Internal Medicine; Referring Provider Emergency Medicine; Visit Provider Student in an Organized Health Care Education/Training Program
DX: Z09 Encounter for follow-up examination after completed treatment for conditions other than malignant neoplasm (principal); E11.9 Type 2 diabetes mellitus without complications; I10 Essential (primary) hypertension; E78.5 Hyperlipidemia, unspecified; M79.672 Pain in left foot
CPT/HCPCS: 99213; G0463

== ENCOUNTER 2023-10-01 23:28 | Emergency (ER) | payer MEDICARE, SELFPAY ==
[2023-10-01 23:29] VITALS: BP 144/84; PULSE 67; RESP 18; TEMP 36.6; O2SAT 97; BMI 30.9
--- NOTE | 2023-10-02 00:01 | EX.ED.DYSGE1 ---
HPI History of Present Illness Chief Complaint: Dizziness Detail of Chief Complaint: Feeling woozy after taking first dose of Zanaflex Informant: patient and family (Blood sugar at the time of onset was 165) Onset/Context/Timing Onset: Hours Context: Sudden Onset Timing: Continuous Quality: Feeling woozy . Location: Home Current Severity: Mild Maximum Severity: Moderate Worsened by: Standing up Relieved by: Nothing Associated Symptoms Associated Symptoms: Nausea Narrative Narrative: Patient is a 78-year-old woman with history of chronic back pain. She has a TENS unit in place. She is on opiate analgesia. She was recently prescribed Zanaflex and took her first dose at night. She feels like she is off. She denies headache, visual, ocular auditory symptoms. She specifically denies double vision. She denies ringing or ears or decreased hearing. Denies trouble with speech or swallowing. She denies cardiac or respiratory symptoms. She does endorse mild nausea without vomiting or diarrhea. She denies abdominal pain. She denies paresthesia, anesthesia or motor weakness. 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 Obesity RAMESH (obstructive sleep apnea) Other secondary pulmonary hypertension Palpitations Pneumonia Shoulder dislocation Home Medications warfarin 5 mg tablet 5 mg PO DAILY blood thinner 11/18/18 [History Last Taken 06/15/22] atorvastatin 10 mg tablet 10 mg PO QHS cholesterol 12/11/19 [History Last Taken 06/15/22] TENS unit electrodes #2 ea 07/11/20 [History Last Taken Unknown] oxycodone-acetaminophen 5 mg-325 mg tablet 1 tab PO Q8H PRN pain 12/07/20 [History Last Taken 06/15/22] cyclobenzaprine 10 mg tablet 5 - 10 mg PO BID PRN Spasms 06/17/22 [History Last Taken 06/16/22] magnesium oxide 400 mg PO DAILY supplement 06/17/22 [History Last Taken 06/16/22] metformin 500 mg tablet,extended release 24 hr 1,000 mg PO BID DM 06/17/22 [History Last Taken 06/16/22] gabapentin 300 mg capsule 300 mg PO BREAKFAST nerve pain 08/04/22 [History Last Taken Unknown] gabapentin 300 mg capsule 600 mg PO QHS Neuropathy 08/04/22 [History Last Taken Unknown] budesonide-formoterol HFA 160 mcg-4.5 mcg/actuation aerosol inhaler (Symbicort) 2 puff inhalation BID asthma #10.2 grams 10/14/22 [Rx Last Taken Unknown] albuterol sulfate 90 mcg/actuation aerosol inhaler 2 puff inhalation Q4H PRN shortness of breath or wheezing #8.5 grams 05/24/23 [Rx Last Taken Unknown] Allergy/AdvReac Type Severity Reaction Status Date / Time amoxicillin Allergy Severe Hives Verified 10/01/23 23:32 aspirin Allergy Severe Hives, SOB Verified 10/01/23 23:32 Sulfa (Sulfonamide Allergy Severe Hives Verified 10/01/23 23:32 Antibiotics) Family History Mother Diabetes Father CAD (coronary artery disease) Sister Lung cancer Son Kidney stone Surgical History History of appendectomy History of kidney surgery Presence of permanent cardiac pacemaker (04/01/19) Social History household members: none housing: house number of children: 3 current occupational status: retired Smoking Status: Never smoker alcohol intake: never substance use type: does not use what type of physical activity do you participate in: none do you feel safe at home: Yes ROS ROS ED Constitutional Constitutional ED: Denies chills, fever(s), subjective, sweats or weight loss Eyes Eyes: Denies blurry vision, change in vision or diplopia ENT ENT ED: Denies rhinorrhea or sore throat Cardiovascular Cardiovascular: Denies chest pain or palpitations Respiratory/Chest Respiratory/Chest: Denies cough, dyspnea or dyspnea on exertion Gastrointestinal Gastrointestinal: Reports nausea; Denies abdominal pain or diarrhea Genitourinary Genitourinary ED: Denies dysuria, hematuria or urinary frequency Musculoskeletal Musculoskeletal: Reports back pain; Denies arthralgias, myalgias or neck pain Integumentary Denies rash Neurologic Neurologic: Denies headache(s), paresthesias or weakness Psychiatric Psychiatric: Denies anxiety Hematologic/Lymphatic Hematologic/Lymphatic: Reports systems reviewed and no addt'l complaints, except as documented EXAM Physical Exam Const Vital Signs: 10/01/23 23:29 10/01/23 23:32 10/02/23 00:27 Temperature 98 F Temperature Source Temporal Pulse Rate 67 Pulse Rate [Sitting (for 1 minute prior to obtaining)] 63 Pulse Rate [Standing (for 1 minute prior to obtaining)] 62 Respiratory Rate 18 Respiratory Effort Normal Non-Labored Respiratory Pattern Normal Blood Pressure 144/84 H Blood Pressure [Lying] 103/65 Blood Pressure [Sitting (for 1 minute prior to obtaining)] 102/66 Blood Pressure [Standing (for 1 minute prior to obtaining)] 98/62 Blood Pressure Mean 104 Blood Pressure Mean [Lying] 77 Blood Pressure Mean [Sitting (for 1 minute prior to obtaining)] 78 Blood Pressure Mean [Standing (for 1 minute prior to obtaining)] 74 Pulse Ox 97 Oxygen Delivery Method Room Air Positive well nourished, well developed and obese Constitutional Narrative: Patient does appear pale. General Appearance ED: well developed, NAD and pallor; Negative for cyanotic or diaphoretic Nutritional Appearance: obese HEENT Reports moist mucous membranes HEENT Narrative: Head is atraumatic and normocephalic. Ears are normal. TMs are normal. Nares patent. Posterior pharynx is normal. Uvula is midline. Eyes PERRL and EOMs intact bilaterally Eyes Narrative: There is no nystagmus. General Eye ED: Yes pale conjunctiva; Negative for scleral icterus Neck no lymphadenopathy, supple and no JVD Chest Wall inspection of chest normal and palpation of chest normal Resp normal respiratory effort and clear to auscultation bilaterally Cardio regular rate, regular rhythm, S1 normal heart sound, S2 normal heart sound and no murmurs GI normal to inspection, nondistended, normoactive bowel sounds, non-tender, non-distended and no masses; Negative for hepatosplenomegaly Auscultation: normoactive bowel sounds Back/Spine no CVA tenderness Extremity normal to inspection Extremity Narrative: There is no clubbing or cyanosis noted. General Extremety ED: Negative for edema or tenderness General Extremity: Negative for edema Neuro oriented x3, CN's II-XII intact bilaterally and no sensory deficits noted Neuro Narrative: There is no dysmetria. Sensorium / Orientation: alert Motor Exam: strength 5/5 throughout Psych mental status grossly normal Skin no rashes or lesions noted, no wounds and No skin turgor normal General Skin Exam: pallor; Negative for elasticity normal or jaundice MDM MDM MDM Narrative Medical decision making narrative: Suspect patient's symptoms are due to the Zanaflex. It is on the beers list. Because patient appears pale and conjunctive is pale CBC was obtained to evaluate for anemia. Prior records were reviewed. History & Record Review Additional record(s) reviewed:: Prior outpatient record (Podiatry for diabetic foot related issues), Prior ED visit (Multiple issues) and Prior labs Lab Data Attestation: I reviewed the patient's lab results. Lab results narrative: CBC is remarkable for mild anemia. Hemoglobin is approximately 1 to 2 g lower than prior. Most recent CBC was obtained April 2021. Indices are normal. Suspect this is chronic anemia due to chronic illness. Labs: Laboratory Results - last 24 hr 10/02/23 00:01 WBC 4.1 L RBC 3.68 L Hgb 11.8 L Hct 36.1 L MCV 98.1 MCH 32.1 H MCHC 32.7 RDW Std Deviation 46.4 H RDW Coeff of Jason 12.9 Plt Count 107 L MPV 10.3 Immature Gran % (Auto) 0.700 Neut % (Auto) 59.6 Lymph % (Auto) 26.2 Hooker % (Auto) 7.6 Eos % (Auto) 4.9 Baso % (Auto) 1.0 Absolute Neuts (auto) 2.4 Absolute Lymphs (auto) 1.07 Nucleated RBC % 0 Treatment and Re-Evaluation :: Since patient does not have significant anemia and is not orthostatic and symptoms started after she took Zanaflex suspect this is adverse reaction to the Zanaflex. She was instructed not to take any additional doses. Discharge Plan Triage Chief Complaint: Dizziness ED Provider: Freddy Robert Dx/Rx/DC Orders Clinical Impression: RAMESH (obstructive sleep apnea), Type 2 diabetes mellitus, Anemia, unspecified, Essential hypertension, Adverse reaction to drug in therapeutic use Instructions: ED Anemia, Type Not Specified (Adult), ED Drug Reaction, Other Prescriptions: No Action oxycodone-acetaminophen 5-325 mg tablet 1 tab PO Q8H PRN (Reason: pain) (DME) TENS unit electrodes Pad See Rx Instructions .ROUTE .MEDSUPPLY Qty: 2 Rx Instructions: As directed Symbicort 160-4.5 mcg/actuation HFA aerosol inhaler 2 puff INHALATION BID Qty: 10.2 11RF warfarin 5 MG tablet 5 mg PO DAILY Protocol: Dose Management Condition: Thursday Dose/Route: 2.5 mg Instruction: 0.5 x 5 mg tablets Condition: Thursday Dose/Route: 5 mg Instruction: 1 x 5 mg tablet Condition: Thursday Dose/Route: 5 mg Instruction: 1 x 5 mg tablet Condition: Thursday Dose/Route: 5 mg Instruction: 1 x 5 mg tablet Condition: Dose/Route: 5 mg Instruction: 1 x 5 mg tablet Condition: Thursday Dose/Route: 2.5 mg Instruction: 0.5 x 5 mg tablets Condition: Thursday Dose/Route: 2.5 mg Instruction: 0.5 x 5 mg tablets Protocol Text: Adjustment Start Date: Thursday07/10/23 INR Value: 2.3 INR Date: 07/10/23 Recheck Date: 07/31/23 Rx Instructions: 5 mg. , , THU atorvastatin 10 MG tablet 10 mg PO QHS gabapentin 300 mg capsule 600 mg PO QHS cyclobenzaprine 10 mg Tablet 5 - 10 mg PO BID PRN (Reason: Spasms) metformin 500 mg tablet extended release 24 hr 1,000 mg PO BID Patient Comments: Take 2 tablets by mouth twice daily with meals. magnesium oxide 400 mg magnesium Tablet 400 mg PO DAILY gabapentin 300 mg capsule 300 mg PO BREAKFAST Patient Comments: Take 2 capsules by mouth daily at bedtime AND 1 capsule every morning. Rx Instructions: 300 mg orally; albuterol sulfate 90 mcg/actuation HFA aerosol inhaler 2 puff INHALATION Q4H PRN (Reason: shortness of breath or wheezing) Qty: 8.5 6RF Rx Instructions: administer with spacer Primary Care Provider: Ro Reed Referrals: Ro Reed MD [Primary Care Provider] - 3-5 Days Disposition Disposition: Home, Self Care
[2023-10-02 00:27] VITALS: BP 102/66; BP 103/65; BP 98/62; PULSE 62; PULSE 63
[2023-10-02 00:42] LABS: Absolute Lymphocyte Count 1.07 X10^3/uL (0.83-4.51); Absolute Neutrophil Count 2.4 X10^3/uL (2.0-7.7); Basophil# 0.04 X10^3/uL; Eosinophils% 4.9 % (0-5); Hematocrit 36.1 % (37-47); Hemoglobin 11.8 g/dL (12.0-15.0); Lymphocyte # 1.07 X10^3/ul (0.83-4.51); Lymphocyte % 26.2 % (19-41); Mean Corp Hgb Conc 32.7 g/dL (32-36); Mean Corpuscular Hgb 32.1 pg (27.0-32.0); Mean Corpuscular Volume 98.1 fL (81-99); Mean Platelet Vol. 10.3 fl (6.2-12.0); Monocyte# 0.31 X10^3/uL; Monocyte% 7.6 % (0-10); NRBC Flagged by Analyzer 0 % (0-5); Neutrophil # 2.44 X10^3/uL (2.7-7.7); Neutrophil % 59.6 % (47-70); Platelet Count 107 K/mm3 (150-450); RBC Distribution Width CV 12.9 % (11.6-14.6); RBC Distribution Width SD 46.4 fl (35.1-43.9); Red Blood Count 3.68 M/mm3 (4.2-5.4); White Blood Count 4.1 K/mm3 (4.4-11.0)
[2023-10-02 01:20] VITALS: BP 108/84
== END 2023-10-02 01:21 | disposition home or self-care (01) ==
PROVIDERS: Emergency Provider Emergency Medicine; PCP Internal Medicine; Visit Provider Emergency Medicine
DX: G47.33 Obstructive sleep apnea (adult) (pediatric) (principal); I48.91 Unspecified atrial fibrillation; E11.9 Type 2 diabetes mellitus without complications; D64.9 Anemia, unspecified; E78.5 Hyperlipidemia, unspecified; I10 Essential (primary) hypertension; E66.9 Obesity, unspecified; T48.1X5A Adverse effect of skeletal muscle relaxants [neuromuscular blocking agents], initial encounter; Z79.84 Long term (current) use of oral hypoglycemic drugs; Z79.899 Other long term (current) drug therapy; Z79.01 Long term (current) use of anticoagulants; Z86.16 Personal history of COVID-19; Z95.0 Presence of cardiac pacemaker
CPT/HCPCS: 85025; 99283; A4216

== ENCOUNTER 2023-11-09 12:47 | Emergency (ER) | payer MEDICARE, SELFPAY ==
[2023-11-09 12:48] VITALS: BP 151/89; PULSE 84; RESP 16; TEMP 36.2; O2SAT 97
--- NOTE | 2023-11-09 14:43 | RAD_ITS ---
STUDY: X-RAY - LEFT ELBOW REASON FOR EXAM: Female, 78 years old. Injury TECHNIQUE: 3 view(s) of the elbow. COMPARISON: None. FINDINGS: Nondisplaced radial neck fracture. Normal radiocapitellar and ulnotrochlear articulations. Small joint effusion. RAD/Elbow min 3 Views IMPRESSION: Nondisplaced radial neck fracture. Small joint effusion. Electronically Signed: Chance Pearl MD at 15:18 EST ,
--- NOTE | 2023-11-09 14:43 | RAD_ITS ---
STUDY: X-RAY - LEFT TIBIA AND FIBULA REASON FOR EXAM: Female, 78 years old. Injury TECHNIQUE: 4 view(s) of the tibia and fibula were obtained. COMPARISON: None. FINDINGS: Normal visualized tibia. Normal visualized fibula. Vascular calcification. RAD/Tibia & Fibula 2 Views IMPRESSION: No acute abnormality is seen. Electronically Signed: Chance Pearl MD at 15:19 EST ,
--- NOTE | 2023-11-09 14:43 | ED.VIS.FALL ---
HPI HPI - Fall History of Present Illness Chief Complaint: Fall Informant: patient Occured/Mechanism Occurred: Today Narrative Narrative: Patient presents after a fall at home. She was outside when she fell landing on concrete. She complains of pain with injury to her left elbow and left lower leg. She denies striking her head. No loss of consciousness. She has no head or neck pain. She is on Coumadin and believes her last INR check was before . 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 Obesity RAMESH (obstructive sleep apnea) Other secondary pulmonary hypertension Palpitations Pneumonia Shoulder dislocation Home Medications warfarin 5 mg tablet 5 mg PO DAILY blood thinner 11/18/18 [History Last Taken 06/15/22] atorvastatin 10 mg tablet 10 mg PO QHS cholesterol 12/11/19 [History Last Taken 06/15/22] TENS unit electrodes #2 ea 07/11/20 [History Last Taken Unknown] oxycodone-acetaminophen 5 mg-325 mg tablet 1 tab PO Q8H PRN pain 12/07/20 [History Last Taken 06/15/22] cyclobenzaprine 10 mg tablet 5 - 10 mg PO BID PRN Spasms 06/17/22 [History Last Taken 06/16/22] magnesium oxide 400 mg PO DAILY supplement 06/17/22 [History Last Taken 06/16/22] metformin 500 mg tablet,extended release 24 hr 1,000 mg PO BID DM 06/17/22 [History Last Taken 06/16/22] gabapentin 300 mg capsule 300 mg PO BREAKFAST nerve pain 08/04/22 [History Last Taken Unknown] gabapentin 300 mg capsule 600 mg PO QHS Neuropathy 08/04/22 [History Last Taken Unknown] budesonide-formoterol HFA 160 mcg-4.5 mcg/actuation aerosol inhaler (Symbicort) 2 puff inhalation BID asthma #10.2 grams 10/14/22 [Rx Last Taken Unknown] albuterol sulfate 90 mcg/actuation aerosol inhaler 2 puff inhalation Q4H PRN shortness of breath or wheezing #8.5 grams 05/24/23 [Rx Last Taken Unknown] Allergy/AdvReac Type Severity Reaction Status Date / Time amoxicillin Allergy Severe Hives Verified 10/01/23 23:32 aspirin Allergy Severe Hives, SOB Verified 10/01/23 23:32 Sulfa (Sulfonamide Allergy Severe Hives Verified 10/01/23 23:32 Antibiotics) Family History Mother Diabetes Father CAD (coronary artery disease) Sister Lung cancer Son Kidney stone Surgical History History of appendectomy History of kidney surgery Presence of permanent cardiac pacemaker (04/01/19) Social History household members: none housing: house number of children: 3 current occupational status: retired Smoking Status: Never smoker alcohol intake: never substance use type: does not use what type of physical activity do you participate in: none do you feel safe at home: Yes ROS ROS ED Constitutional Constitutional ED: Denies chills or fever(s) Eyes Eyes: Denies discharge from eye(s) ENT ENT ED: Denies discharge from eye(s), rhinorrhea or sore throat Cardiovascular Cardiovascular: Denies chest pain Respiratory/Chest Respiratory/Chest: Denies cough or dyspnea Gastrointestinal Gastrointestinal: Denies abdominal pain, nausea or vomiting Genitourinary Genitourinary ED: Denies dysuria Musculoskeletal Musculoskeletal: Reports extremity pain; Denies back pain Integumentary Reports Abrasions; Denies rash Neurologic Neurologic: Denies headache(s) or weakness Psychiatric Psychiatric: Denies anxiety or depression Allergic/Immunologic Allergic/Immunologic ED: Denies lip swelling or urticaria EXAM Physical Exam Const Vital Signs: 11/09/23 12:48 11/09/23 14:49 Temperature 97.2 F L Temperature Source Temporal Pulse Rate 84 Respiratory Rate 16 Respiratory Effort Normal Non-Labored Respiratory Depth Normal Respiratory Pattern Normal Blood Pressure 151/89 H Blood Pressure Mean 109 Pulse Ox 97 Oxygen Delivery Method Room Air Positive well nourished and well developed General Appearance ED: well developed HEENT atraumatic Eyes EOMs intact bilaterally Neck full ROM Chest Wall inspection of chest normal and palpation of chest normal Resp normal respiratory effort and clear to auscultation bilaterally Cardio regular rate and regular rhythm GI non-tender Palpation: soft Extremity Extremity Narrative: 4 cm along skin tear over the extensor surface of the left elbow. Full range of motion with no difficulty. Good distal pulses. Bleeding well-controlled. 2 cm superficial linear laceration over the left proximal tib-fib. Mild surrounding hematoma. Good distal pulses with good range of motion. Neuro oriented x3 and moves all extremities Sensorium / Orientation: alert Motor Exam: strength 5/5 throughout Psych mental status grossly normal Skin Skin Narrative: Lacerations as noted above. MDM MDM MDM Narrative Medical decision making narrative: X-rays of the left tib-fib and left elbow will be obtained to evaluate for potential fracture. INR will be obtained. Lab Data Labs: Laboratory Results - last 24 hr 11/09/23 15:00 PT 24.1 H INR 2.1 Radiography Diagnostic Testing: Clinical Impression(s) from Imaging Studies Elbow X-Ray 11/09/23 14:43 IMPRESSION: Nondisplaced radial neck fracture. Small joint effusion. Electronically Signed: Chance Pearl MD at 15:18 EST , Tibia/Fibula X-Ray 11/09/23 14:43 IMPRESSION: No acute abnormality is seen. Electronically Signed: Chance Pearl MD at 15:19 EST , Treatment and Re-Evaluation Narrative: INR is therapeutic at 2.1. Left elbow x-rays per my interpretation reveal no obvious abnormalities. Radiology read reviewed send does feel there is a nondisplaced radial neck fracture. There is a small joint effusion. Left hip x-ray per my interpretation reveals no acute bony injury. Radiology interpretation reviewed and agrees. Wounds were cleansed and dressed by nursing staff. Posterior splint placed on the left upper extremity. Family can remove this to clean the wound and replace easily. Patient encouraged to follow-up in 1 week for repeat imaging and exam. She will be referred to Dr. Arriola, on-call for orthopedics. Discharge Plan Triage Chief Complaint: Fall ED Provider: Brooke Willingham Dx/Rx/DC Orders Clinical Impression: Fall, Closed fracture of neck of left radius Instructions: ED Fracture, Upper Extremity Prescriptions: No Action oxycodone-acetaminophen 5-325 mg tablet 1 tab PO Q8H PRN (Reason: pain) (DME) TENS unit electrodes Pad See Rx Instructions .ROUTE .MEDSUPPLY Qty: 2 Rx Instructions: As directed Symbicort 160-4.5 mcg/actuation HFA aerosol inhaler 2 puff INHALATION BID Qty: 10.2 11RF warfarin 5 MG tablet 5 mg PO DAILY Protocol: Dose Management Condition: Thursday Dose/Route: 2.5 mg Instruction: 0.5 x 5 mg tablets Condition: Thursday Dose/Route: 5 mg Instruction: 1 x 5 mg tablet Condition: Thursday Dose/Route: 5 mg Instruction: 1 x 5 mg tablet Condition: Thursday Dose/Route: 5 mg Instruction: 1 x 5 mg tablet Condition: Dose/Route: 5 mg Instruction: 1 x 5 mg tablet Condition: Thursday Dose/Route: 2.5 mg Instruction: 0.5 x 5 mg tablets Condition: Thursday Dose/Route: 2.5 mg Instruction: 0.5 x 5 mg tablets Protocol Text: Adjustment Start Date: Thursday07/10/23 INR Value: 2.3 INR Date: 07/10/23 Recheck Date: 07/31/23 Rx Instructions: 5 mg. , , THU atorvastatin 10 MG tablet 10 mg PO QHS gabapentin 300 mg capsule 600 mg PO QHS cyclobenzaprine 10 mg Tablet 5 - 10 mg PO BID PRN (Reason: Spasms) metformin 500 mg tablet extended release 24 hr 1,000 mg PO BID Patient Comments: Take 2 tablets by mouth twice daily with meals. magnesium oxide 400 mg magnesium Tablet 400 mg PO DAILY gabapentin 300 mg capsule 300 mg PO BREAKFAST Patient Comments: Take 2 capsules by mouth daily at bedtime AND 1 capsule every morning. 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 Next of kin: [place] law dictates a PRIORITY LIST for identifying legal decision-maker/legal next of kin in the following order (LNOK): 1st: The patient?s legal guardian, if any 2nd: The patient's spouse (if status is questionable, consult Risk Management) 3rd: The patient?s adult child(johnny) (majority, if multiple children) 4th: The patient?s parents 5th: The patient?s adult siblings (majority, if multiple children siblings)
[2023-11-09 15:20] LABS: International Normalized Ratio 2.1; Prothrombin Time (Protime)PT. 24.1 SECONDS (11.7-14.9)
== END 2023-11-09 16:07 | disposition home or self-care (01) ==
PROVIDERS: Emergency Provider Emergency Medicine; PCP Internal Medicine; Visit Provider Emergency Medicine
DX: S52.135A Nondisplaced fracture of neck of left radius, initial encounter for closed fracture (principal); G47.33 Obstructive sleep apnea (adult) (pediatric); M79.662 Pain in left lower leg; W19.XXXA Unspecified fall, initial encounter; Z86.16 Personal history of COVID-19; Z95.0 Presence of cardiac pacemaker
CPT/HCPCS: 36415; 73080; 73590; 85610; 99283

== ENCOUNTER → 2023-11-27 | Outpatient (CLI) | payer MEDICARE, SELFPAY ==
--- NOTE | 2023-11-27 12:41 | PFTCOMP_ITS ---
COMPLETE PULMONARY FUNCTION TEST INTERPRETATION Brief HPI: Patient is a 78-year-old female, currently under the care of Dr. Alberto, who presents to [facility] for complete pulmonary function tests secondary to diagnosis of asthma. Respiratory therapist reports good effort and reproducible results. Interpretation: Forced expiration spirometry shows a moderate large airways obstructive ventilatory defect with an FEV1 of 60% predicted. There is a significant bronchodilator response in FVC and FEV1 by strict ATS criteria. Spirograms are of good quality and plateau slowly, indicating slowly emptying areas of the lungs. The respiratory flow volume loop shows decreased expiratory flow rates at all lung volumes consistent with airway obstruction. Lung volumes by body plethysmography show a decreased total lung capacity at 4.37 L, 78% predicted. FRC and RV are elevated out of proportion. Lung volume measurements are consistent with hyperinflation and air-trapping. Diffusion capacity by carbon monoxide is decreased at 53% predicted. The airway resistance is elevated. Compared to previous pulmonary function tests from 02/18/2019, there has been a significant improvement in lung volumes and postbronchodilator spirometry. Impression: Partially reversible moderate mixed ventilatory defect with a symmetric reduction diffusion capacity, but some improvements compared to 2019
== END | disposition home or self-care (01) ==
LOC: PSN 08:09
PROVIDERS: PCP Internal Medicine; Referring Provider Internal Medicine Critical Care Medicine; Visit Provider Internal Medicine Critical Care Medicine
DX: J45.909 Unspecified asthma, uncomplicated (principal)
CPT/HCPCS: 94060; 94726; 94729

== ENCOUNTER 2023-11-28 22:43 | Emergency (ER) | payer MEDICARE, SELFPAY ==
[2023-11-28 22:45] VITALS: BP 139/83; PULSE 64; RESP 12; TEMP 37; O2SAT 98; BMI 30.1
--- OUTSIDE RECORDS SUMMARY | 2023-11-28 23:08 | XMS RPT_ITS | CCD ---
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 asthma(493.90) Unspecified essential hypertension Current Outpatient Medications Medication Sig tiZANidine (ZANAFLEX) 4 mg tablet Take 1 tablet by mouth every 8 hours as needed. (Patient not taking: Reported on 10/07/2023) albuterol HFA (PROAIR HFA) 90 mcg/actuation inhaler Inhale 2 Puffs as instructed every 4 hours as needed for wheezing/shortness of breath. 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 tens unit electrodes (TENS UNITS ELECTRODES) 2X2 pads Change pad every month as indicated gabapentin (NEURONTIN) 300 mg capsule Take 2 capsules by mouth daily at bedtime AND 1 capsule every morning. Do all this for 180 days. triamcinolone acetonide (KENALOG) 0.1 % cream Apply 1 application to affected area three times daily as needed. For rash on extremities and leg budesonide-formoterol (SYMBICORT) 160-4.5 mcg/actuation inhaler Inhale 2 Puffs as instructed twice daily. ([facility] pulmonology) blood sugar diagnostic (BLOOD GLUCOSE TEST) test strip Test blood sugar(s) 1 times daily. Dx: Type 2 DM - Controlled E11.9 Insulin: No Lancets lancets Test blood sugar(s) 1 times daily. Dx: Type 2 DM - Controlled E11.9 Insulin: No metFORMIN ER (GLUCOPHAGE XR) 500 mg 24 hr tablet Take 2 tablets by mouth twice daily with meals. glimepiride (AMARYL) 2 mg tablet Take 1 tablet by mouth once daily as needed. for blood sugar over 200. (Has pills left from 2017) atorvastatin (LIPITOR) 10 mg tablet Take 1 tablet by mouth once daily. warfarin (COUMADIN) 5 mg tablet Take 1 tablet by mouth once daily. diclofenac (VOLTAREN ARTHRITIS PAIN) 1 % topical gel Apply 2 g to affected area four times daily. (Patient taking differently: Apply 2 g to affected area four times daily. Takes as needed) magnesium oxide 400 mg magnesium cap Take 400 mg by mouth once daily. No current facility-administered medications for this visit. Review of Systems Objective BP 140/80 Pulse 80 Resp 16 Wt 88.5 kg (195 lb 1.6 oz) BMI 31.49 kg/m? Physical Exam Constitutional: Appearance: Normal appearance. HENT: Head: Normocephalic. Eyes: Conjunctiva/sclera: Conjunctivae normal. Cardiovascular: Rate and Rhythm: Normal rate and regular rhythm. Heart sounds: Normal heart sounds. Pulmonary: Effort: Pulmonary effort is normal. Breath sounds: Normal breath sounds. Musculoskeletal: Right lower leg: Edema present. Left lower leg: Edema present. Skin: General: Skin is warm and dry. Comments: stasis dermatitis of legs starting; excoriations and redness starting Neurological: General: No focal deficit present. Mental Status: She is alert and oriented to person, place, and time. Psychiatric: Mood and Affect: Mood normal. Behavior: Behavior normal. Thought Content: Thought content normal. Judgment: Judgment normal. Component Latest Ref Rng AND Units 03/31/2023 09/23/2023 WBC 3.70 - 11.00 k/uL 6.94 8.04 RBC 3.90 - 5.20 m/uL 4.08 4.39 Hemoglobin 11.5 - 15.5 g/dL 13.1 14.4 Hematocrit 36.0 - 46.0 % 41.7 43.3 MCV 80.0 - 100.0 fL 102.2 (H) 98.6 MCH 26.0 - 34.0 pg 32.1 32.8 MCHC 30.5 - 36.0 g/dL 31.4 33.3 RDW-CV 11.5 - 15.0 % 12.4 12.5 Platelet Count 150 - 400 k/uL 161 163 MPV 9.0 - 12.7 fL 9.7 10.1 Neut% % 63.7 Abs Neut (ANC) 1.45 - 7.50 k/uL 4.43 Lymph% % 23.5 Abs Lymph 1.00 - 4.00 k/uL 1.63 [place]% % 6.1 Abs [place] <0.87 k/uL 0.42 Eosin% % 4.6 (more content not included)... [facility] 09-30-2023 Miscellaneous Notes Below left on identified rhina. Liza Santana LPN Looks like she has had Robaxin in the past, insurance preference is for Zanaflex, script sent to the pharmacy. Patient calling asking for something for muscle spasms, for past 4 weeks has been really bad. She said left mid to lower back area. She is using a TENS unit and not really helping much, has smaller pads then the last one she wore out. Patient said the methocarbamol does nothing for the spasms. Patient said the oxycodone does not touch the muscle spasms at all. Patient asking for something to help. Patient uses [facility] for her pharmacy. Please advise documented in this encounter [facility] 09-23-2023 Note HNO ID: [id number] Author: Whitney Garcia APRN.DOMINGO Service: ? Author Type: Nurse Practitioner Type: Progress Notes Filed: 09/23/2023 10:02 AM Note Text: SUBJECTIVE Keisha Red is a 78 year old female here today for a check up on her medical problems. Chief Complaint Patient presents with: F/U 3 Month HPI Keisha Red is a 78 year old female. Here today for routine 3 month follow up. Doing better today then she had been. Recently had her dog pass away. Back pain has been worse, controllable with her PRN percocet. Also using a TENS unit. Due for labs. Labs ordered from a prior visit. Due for the eye doctor. Follows with [facility]. On coumadin for history of a. Fib. No recent bleeding issues. Follows with [facility]. No chest pains or chest tightness. Her medications were reviewed today and her list is now up to date. Medications Current Outpatient Medications Medication Sig albuterol HFA (PROAIR HFA) 90 mcg/actuation inhaler Inhale 2 Puffs as instructed every 4 hours as needed for wheezing/shortness of breath. 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 Do all this for 180 days. triamcinolone acetonide (KENALOG) 0.1 % cream Apply 1 application to affected area three times daily as needed. For rash on extremities and leg budesonide-formoterol (SYMBICORT) 160-4.5 mcg/actuation inhaler Inhale 2 Puffs as instructed twice daily. ([facility] pulmonology) methocarbamol (ROBAXIN) 500 mg tablet Take 1 tablet by mouth three times daily as needed (Pain/muscle spasms). metFORMIN ER (GLUCOPHAGE XR) 500 mg 24 hr tablet Take 2 tablets by mouth twice daily with meals. glimepiride (AMARYL) 2 mg tablet Take 1 tablet by mouth once daily as needed. for blood sugar over 200. (Has pills left from 2017) atorvastatin (LIPITOR) 10 mg tablet Take 1 tablet by mouth once daily. warfarin (COUMADIN) 5 mg tablet Take 1 tablet by mouth once daily. diclofenac (VOLTAREN ARTHRITIS PAIN) 1 % topical gel Apply 2 g to affected area four times daily. (Patient taking differently: Apply 2 g to affected area four times daily. Takes as needed) magnesium oxide 400 mg magnesium cap Take 400 mg by mouth once daily. oxyCODONE-acetaminophen (PERCOCET) 5-325 mg tablet Take 1 tablet by mouth every 8 hours as needed (for severe back pain and foot pain) for up to 7 days. TENS unit and electrodes cmpk 1 Each once daily. tens unit electrodes (TENS UNITS ELECTRODES) 2X2 pads Change pad every month as indicated blood sugar diagnostic (BLOOD GLUCOSE TEST) test strip Test blood sugar(s) 1 times daily. Dx: Type 2 DM - Controlled E11.9 Insulin: No Lancets lancets Test blood sugar(s) 1 times daily. Dx: Type 2 DM - Controlled E11.9 Insulin: No No current facility-administered medications for this visit. 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 Respiratory: Negative for cough, chest tightness and wheezing. Cardiovascular: Negative. OBJECTIVE BP 128/70 Pulse 83 Wt 198 lb (89.8kg) SpO2 97% Physical Exam Vitals and nursing note reviewed. Constitutional: General: She is awake. She is not in acute distress. Appearance: Normal appearance. She is well-developed and well-groomed. She is not ill-appearing, toxic-appearing or diaphoretic. HENT: Head: Normocephalic. Right Ear: External ear normal. Left Ear: External ear normal. Nose: Nose normal. Eyes: General: Vision grossly intact. Conjunctiva/sclera: Conjunctivae normal. Pupils: Pupils are equal, round, and reacti (more content not included)... [facility] 09-23-2023 History of Present illness Narrative SUBJECTIVE Keisha Red is a 78 year old female here today for a check up on her medical problems. Chief Complaint Patient presents with: F/U 3 Month HPI Keisha Red is a 78 year old female. Here today for routine 3 month follow up. Doing better today then she had been. Recently had her dog pass away. Back pain has been worse, controllable with her PRN percocet. Also using a TENS unit. Due for labs. Labs ordered from a prior visit. Due for the eye doctor. Follows with [facility]. On coumadin for history of a. Fib. No recent bleeding issues. Follows with [facility]. No chest pains or chest tightness. Her medications were reviewed today and her list is now up to date. Medications Current Outpatient Medications Medication Sig albuterol HFA (PROAIR HFA) 90 mcg/actuation inhaler Inhale 2 Puffs as instructed every 4 hours as needed for wheezing/shortness of breath. 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 Do all this for 180 days. triamcinolone acetonide (KENALOG) 0.1 % cream Apply 1 application to affected area three times daily as needed. For rash on extremities and leg budesonide-formoterol (SYMBICORT) 160-4.5 mcg/actuation inhaler Inhale 2 Puffs as instructed twice daily. ([facility] pulmonology) methocarbamol (ROBAXIN) 500 mg tablet Take 1 tablet by mouth three times daily as needed (Pain/muscle spasms). metFORMIN ER (GLUCOPHAGE XR) 500 mg 24 hr tablet Take 2 tablets by mouth twice daily with meals. glimepiride (AMARYL) 2 mg tablet Take 1 tablet by mouth once daily as needed. for blood sugar over 200. (Has pills left from 2017) atorvastatin (LIPITOR) 10 mg tablet Take 1 tablet by mouth once daily. warfarin (COUMADIN) 5 mg tablet Take 1 tablet by mouth once daily. diclofenac (VOLTAREN ARTHRITIS PAIN) 1 % topical gel Apply 2 g to affected area four times daily. (Patient taking differently: Apply 2 g to affected area four times daily. Takes as needed) magnesium oxide 400 mg magnesium cap Take 400 mg by mouth once daily. oxyCODONE-acetaminophen (PERCOCET) 5-325 mg tablet Take 1 tablet by mouth every 8 hours as needed (for severe back pain and foot pain) for up to 7 days. TENS unit and electrodes cmpk 1 Each once daily. tens unit electrodes (TENS UNITS ELECTRODES) 2X2 pads Change pad every month as indicated blood sugar diagnostic (BLOOD GLUCOSE TEST) test strip Test blood sugar(s) 1 times daily. Dx: Type 2 DM - Controlled E11.9 Insulin: No Lancets lancets Test blood sugar(s) 1 times daily. Dx: Type 2 DM - Controlled E11.9 Insulin: No No current facility-administered medications for this visit. ALLERGIES Allergen Reactions Amoxicillin Hives Aspirin Hives, shortness of breath Sulfa (Sulfonamide * Hives ACTIVE PROBLEM LIST Obesity, Class I, Bmi 30-34.9 - 09/23/2023 Hemorrhagic Disorder Due to Extrinsic Circulating Anticoagulants (Former[facility]) - 09/23/2023 Ulcer of Right Lower Extremity With Fat Layer Exposed ([facility]) - 07/26/2023 Pulmonary Hypertension ([facility]) - 05/03/2023 Ramesh (Obstructive Sleep Apnea) - 01/21/2021 Pacemaker - 01/21/2021 Bilateral Carpal Tunnel Syndrome - 01/21/2021 Atrial Flutter ([facility]) - 04/12/2019 Anticoagulated On Coumadin - 04/12/2019 Severe Low Back Pain - 12/28/2018 Ddd (Degenerative Disc Disease), Lumbar Comment: Dr. 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 Respiratory: Negative for cough, chest tightness and wheezing. Cardiovascular: Negative. OBJECTIVE BP 128/70 Pulse 83 Wt 198 lb (89.8kg) SpO2 97% Physical Exam Vitals and nursing note reviewed. Constitutional: General: She is awake. She is not in acute distress. Appearance: Normal appearance. She is well-developed and well-groomed. She is not ill-appearing, toxic-appearing or diaphoretic. HENT: Head: Normocephalic. Right Ear: External ear normal. Left Ear: External ear normal. Nose: Nose normal. Eyes: General: Vision grossly intact. Conjunctiva/sclera: Conjunctivae normal. Pupils: Pupils are equal, round, and reactive to light. Neck: Vascular: No JVD. Trachea: Trachea normal. Cardiovascular: Rate and Rhythm: Normal rate and regular rhythm. Pulses: Normal pulses. Heart sounds: Normal heart sounds. No murmur heard. Pulmonary: Effort: Pulmonary effort is normal. No accessory muscle usage, prolonged expiration or respiratory distress. Breath sounds: Normal breath sounds. Musculoskeletal: Cervical back: Neck supple. Skin: General: Skin is warm and dry. Capillary Refill: Capillary refill takes less than 2 seconds. Neurological: General: No focal deficit present. Mental Status: She is alert and oriented to person, place, and time. Mental status is at baseline. Psychiatric: Attention and Perception: Attention and perception normal. Mood and Affect: Mood and affect normal. Speech: Speech normal. Behavior: Behavior normal. Behavior is cooperative. Thought Content: Thought content normal. Cognition and Memory: Cognition and memory normal. Judgment: Judgment normal. ASSESSMENT/PLAN: 1. Severe low back pain - ICD9: 724.2, ICD10: M54.50 (primary diagnosis) OARRS reviewed and script is appropriate, non-opioids considered. Patient is aware of risks and benefits of opioid medications and their use, including but not limited to risk for addiction. Advised to take medication as prescribed and adhere to the dosing regimen and to use the least amount necessary for the shortest period of time. Discussed possible side effects including constipation. Advised to use caution when operating heavy machinery and driving and to never share or sell medication. - OXYCODONE-ACETAMINOPHEN 5 MG-325 MG TABLET 2. DDD (degenerative disc disease), lumbar - ICD9: 722.52, ICD10: M51.36 - OXYCODONE-ACETAMINOPHEN 5 MG-325 MG TABLET 3. Atrial flutter, unspecified type (HCC) - ICD9: 427.32, ICD10: I48.92 Stable. 4. Essential hypertension - ICD9: 401.9, ICD10: I10 - Controlled - Continue current medications - Recommend home blood pressure monitoring, to bring results to next visit - Encouraged sodium restriction, DASH or Mediterranean diet - Recommend regular aerobic exercise 5. 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ng anticoagulants (HCC) - ICD9: 287.8, ICD10: D68.32 No issues with this, INR managed with cardiology. 6. Anticoagulated on Coumadin - ICD9: V58.61, ICD10: Z79.01 7. Obesity, Class I, BMI 30-34.9 - ICD9: 278.00, ICD10: E66.9 8. Controlled type 2 diabetes mellitus without complication, without long-term current use of insulin (HCC) - ICD9: 250.00, ICD10: E11.9 - Control undetermined, due for labs - Continue current medications PDMP website checked and validated. All prescriptions have been APPROPRIATELY filled. No suspicious activity was identified. 09/23/2023 by Whitney Garcia APRN.CNP Medical Decision Making: Problems: Moderate: 2+ stable chronic illnesses Data: Unique test result(s) reviewed: 3+ Medical Decision Making Level: 4 - Moderate Reviewed prior labs and imaging. Portions of this note have been entered by ancillary staff. I have reviewed and when necessary edited, so that they are an adequate record of my encounter with this patient Please note that parts of this document were created using voice recognition software and therefore may contain grammatical errors. Patient verbalizes understanding of instructions from today's visit and in agreement with treatment plan. Questions answered. Agrees to call the office if questions, concerns of issues with acute symptoms not improving or if they worsen. See diagnoses and orders for additional plan(s). Allergies and medications were reviewed, list was updated, and refills given if needed. Past medical, surgical, social, and family history reviewed and updated as appropriate. Encouraged proper diet & exercise as well as compliance with taking medications. Age-appropriate health preventative measures were discussed. Return if symptoms worsen or fail to improve, for Keep next scheduled appointment.. Whitney Garcia APRN-DOMINGO documented in this encounter [facility] 09-18-2023 Miscellaneous Notes Last office visit: 06/22/23 Next appointment scheduled: 09/23/23 Patient has been identified by name and date of : Yes Requested Prescriptions Pending Prescriptions Disp Refills albuterol HFA (PROAIR HFA) 90 mcg/actuation inhaler 1 Each 3 Sig: Inhale 2 Puffs as instructed every 4 hours as needed for wheezing/shortness of breath. 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 No need to notify patient. Mattie oMsley documented in this encounter [facility] 09-10-2023 Miscellaneous Notes Left a message with information listed below. Maddie Rojo LPN If her back pain is a 10 of 10 and not being helped with medications she should go to the emergency department for further evaluation and treatment. Patient calling to ask if provider gave an answer. Went over notes below from Nicolle Tang [employer]INEER with understanding. Patient is going to call [facility] and discuss with them. Attempted to contact patient but no answer. Left message for patient to call office and ask to speak to a nurse regarding back pain. If her back pain is a 10 of 10 and not being helped with medications she should go to the emergency department for further evaluation and treatment. I sent a refill of the TENS unit electrodes to [facility], not sure if they can provide that for her or not. If it needs to go to a DME she will have to let us know which one that he has. Pt has ongoing back pain, states it has been worse lately, low right side. Pt reports pain a 10 on 0-10 pain scale, pt is tearful on the phone. Taking oxycodone but states it is not touching the pain. Pt is asking for a new TENS unit, states hers is old & worn out. Pt uses [facility] in [place]. Please notify pt of response. Elvia Orellana LPN documented in this encounter [facility] 07-16-2023 Miscellaneous Notes ok Patient calling to request order for new glucometer. Her old one is no longer working. [facility]. Patient has been identified by name and date of : Yes, Provider Date Time Patient phones for refill(s): Requested Prescriptions No prescriptions requested or ordered in this encounter Date of last office visit with pcp: 06/22/23 Date of last office visit in primary care: Last 2 Encounter Wt Readings: Date: Wt: 06/22/2023 89.8 kg (198 lb) 05/12/2023 87.5 kg (193 lb) Previous labs/tests for medication: Diabetes: Hemoglobin A1C (%) Date Value 03/31/2023 6.6 10/16/2021 5.8 06/10/2021 6.0 Hemoglobin A1C (POCT) (%) Date Value 03/25/2022 6.0 Please advise. Thank you. Taylor Ruffin, RN documented in this encounter [facility] 07-14-2023 Miscellaneous Notes Patient has been identified by name and date of : Yes Patient phones for refill(s): Requested Prescriptions Pending Prescriptions Disp Refills gabapentin (NEURONTIN) 300 mg capsule 270 capsule 1 Sig: Take 2 capsules by mouth daily at bedtime AND 1 capsule every morning. Do all this for 180 days. Date of last office visit in primary care: 06/22/2023 3 month follow-up: 09/23/2023 Last 2 Encounter Wt Readings: Date: Wt: 06/22/2023 89.8 kg (198 lb) 05/12/2023 87.5 kg (193 lb) Previous labs/tests for medication: Not applicable Please advise. Thank you. Liza Santana LPN Patient has been identified by name and date of : Yes Last office visit in this department: 06/22/2023 RX INSTRUCTIONS: Patient aware RX will be sent to pharmacy. No need to notify patient. Patient phones requesting refills as follows: Requested Prescriptions Pending Prescriptions Disp Refills gabapentin (NEURONTIN) 300 mg capsule 270 capsule 1 Sig: Take 2 capsules by mouth daily at bedtime AND 1 capsule every morning. Do all this for 180 days. Please review and advise. Brooke Cooper documented in this encounter [facility] 06-22-2023 Note HNO ID: [id number] Author: Joon Reed MD Service: ? Author Type: Physician Type: Progress Notes Filed: 07/26/2023 9:47 PM Note Text: This note was created using Vook. Subjective Keisha Red is a 78 year old female. Patient presents with: F/U 3 Month SUBJECTIVE: Keisha Red is a 78 year old year old lady here today for 3 month follow up appointment for review of medical conditions. Wondered about stuff for forgetfulness. Not able to sleep. Gets 2 hours sometimes. Last night slept well. Some night no sleep. No daytime naps. Foot pain in toes. 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 Still wrapped. They applied placenta on it most recently. 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 Agudelo Dizziness and giddiness Muscle spasm Obesity, unspecified Palpitations Pulmonary hypertension (HCC) 05/03/2023 Shoulder dislocation 12/06/11 Right shoulder s/p fall with reduction at [facility] Type II or unspecified type diabetes mellitus without mention of complication, not stated as uncontrolled Unspecified asthma(493.90) Unspecified essential hypertension Current Outpatient Medications Medication Sig albuterol HFA (PROAIR HFA) 90 mcg/actuation inhaler Inhale 2 Puffs as instructed every 4 hours as needed for wheezing/shortness of breath. 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 methocarbamol (ROBAXIN) 500 mg tablet Take 1 tablet by mouth three times daily as needed (Pain/muscle spasms). metFORMIN ER (GLUCOPHAGE XR) 500 mg 24 hr tablet Take 2 tablets by mouth twice daily with meals. glimepiride (AMARYL) 2 mg tablet Take 1 tablet by mouth once daily as needed. for blood sugar over 200. (Has pills left from 2017) atorvastatin (LIPITOR) 10 mg tablet Take 1 tablet by mouth once daily. warfarin (COUMADIN) 5 mg tablet Take 1 tablet by mouth once daily. gabapentin (NEURONTIN) 300 mg capsule Take 2 capsules by mouth daily at bedtime AND 1 capsule every morning. Do all this for 180 days. blood sugar diagnostic (BLOOD GLUCOSE TEST) test strip Test blood sugar(s) 1 times daily. Dx: Type 2 DM - Controlled E11.9 Insulin: No Lancets lancets Test blood sugar(s) 1 times daily. Dx: Type 2 DM - Controlled E11.9 Insulin: No blood sugar diagnostic (RELION PRIME TEST STRIPS) test strip Test glucose 1 x per day. Dx: 250.00. Insulin use: no diclofenac (VOLTAREN ARTHRITIS PAIN) 1 % topical gel Apply 2 g to affected area four times daily. (Patient taking differently: Apply 2 g to affected area four times daily. Takes as needed) budesonide-formoterol (SYMBICORT) 160-4.5 mcg/actuation inhaler Inhale 2 Puffs as instructed twice daily. triamcinolone acetonide (KENALOG) 0.1 % cream Apply 1 application to affected area three times daily as needed. For rash on extremities and leg magnesium oxide 400 mg magnesium cap Take 400 mg by mouth once daily. TENS unit and electrodes cmpk 1 Each once daily. (Patient taking differently: 1 Each once daily. Patient using PRN) TENS UNIT ELECTRODES (TENS UNITS ELECTRODES) 2X2 pads Change pad every month as indicated methylPREDNISolone (MEDROL, MAT,) 4 mg Dose-Pack As Instructed per package (Patient not taking: Reported on 06/22/2023) No current facility-administered medications for this visit. Review of Systems Objective BP 122/66 Pulse 88 Temp 36.4 ?C (97.5 ?F) Resp 18 Wt 89.8 kg (198 lb) SpO2 97% BMI 31.96 kg/m? Physical Exam Constitutional: Appearance: Normal appearance. HENT: Head: Normocephalic. Eyes: Conjunctiva/sclera: Conjunctivae normal. Cardiovascular: Rate and Rhythm: Normal rate and regular rhythm. Heart sounds: Normal heart sounds. Pulmonary: Effort: Pulmonary effort is normal. Breath sounds: Normal breath sounds. Musculoskeletal: Comments: Left foot and ankle swollen; bandaged Skin: General: Skin is warm and dry. Neurological: General: No focal deficit present. Mental Status: She is alert and oriented to person, place, and time. Psychiatric: Mood and Affect: Mood normal. Behavior: Behavior normal. Thought Content: Thought content normal. Judgment: Judgment normal. Labs ordered Assessment and Plan Encounter Diagnosis ICD-10-CM 1. Severe low back pain M54.50 oxyCODONE-acetaminophen (PERCOCET) 5-325 mg tablet Chronic back pain with occasional episodes severe back pain when needs Percocet.Sporadic episodes are infrequent.Needs to have med on hand to treat prn 2. Controlled type 2 diabetes mellitus without complication, without long-term current use of (more content not included)... [facility] 06-22-2023 Miscellaneous Notes Faxed request to [employer] to have compliance report faxed to office today prior to OV. Sylwia Vasquez LPN Noted--make sure addressed when patient seen for follow up Patient's daughter calls very concerned about patient. Patient has been forgetting a lot of things. Patient has been very defiant and short with her. Daughter feels like she is losing her mom. Patient is supposed to be getting a new CPAP Machine since she is not sleeping or breathing well at night. Patient is declining to do this. Patient has been using her inhalers more frequently then she should be using them. Patient has appointment with Dr. Reed on 06/22/2023. Brooke wanted provider aware of what is going on since she knows that patient will not tell provider this. Patient is also seeing wound center for wound on left foot. Yuko Rogers RN documented in this encounter [facility] 05-12-2023 Note HNO ID: [id number] Author: Whitney Garcia APRN.URBAN SOCIOLOGIST Service: ? Author Type: Nurse Practitioner Type: Progress Notes Filed: 05/12/2023 10:43 AM Note Text: JESSICA Red is a 78 year old female here today for an ER follow up. Chief Complaint Patient presents with: Wound Check: 05/02/2023 left foot burn from a plate of hot chicken sliding of plate 2 week ago seen in [facility] ER on 05/09/23. Was treated with cephalexin 500mg every 6 hours. HPI Keisha Red is a 78 year old female established patient of Joon Reed MD. She presents today for an ER follow up. Seen in the ER at [facility] for an injury sustained on 05/02. Her left foot was burnt from hot chicken falling on to the foot. Went to ER on 05/09, records available to review in Care Everywhere. She went in for evaluation due to noting an area of black skin and redness around the wound. Diagnosed with burn and cellulitis of the top of left foot. At the time per ER note the open wound was half dollar sized just proximal to the great and second toe. Started on Keflex for x10 days. She is a diabetic. Thinks the open area is improved but overall not much better. Very tender. Blood sugars are stable. Allergies to amoxicillin and sulfa. Her medications were reviewed today and her list is now up to date. Medications Current Outpatient Medications Medication Sig oxyCODONE-acetaminophen (PERCOCET) 5-325 mg tablet Take 1 tablet by mouth every 8 hours as needed (for severe back pain) for up to 7 days. methocarbamol (ROBAXIN) 500 mg tablet Take 1 tablet by mouth three times daily as needed (Pain/muscle spasms). metFORMIN ER (GLUCOPHAGE XR) 500 mg 24 hr tablet Take 2 tablets by mouth twice daily with meals. glimepiride (AMARYL) 2 mg tablet Take 1 tablet by mouth once daily as needed. for blood sugar over 200. (Has pills left from 2017) atorvastatin (LIPITOR) 10 mg tablet Take 1 tablet by mouth once daily. warfarin (COUMADIN) 5 mg tablet Take 1 tablet by mouth once daily. gabapentin (NEURONTIN) 300 mg capsule Take 2 capsules by mouth daily at bedtime AND 1 capsule every morning. Do all this for 180 days. albuterol HFA (PROAIR HFA) 90 mcg/actuation inhaler Inhale 2 Puffs as instructed every 4 hours as needed for wheezing/shortness of breath. 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 (Patient taking differently: Apply 2 g to affected area four times daily. Takes as needed) budesonide-formoterol (SYMBICORT) 160-4.5 mcg/actuation inhaler Inhale 2 Puffs as instructed twice daily. triamcinolone acetonide (KENALOG) 0.1 % cream Apply 1 application to affected area three times daily as needed. For rash on extremities and leg magnesium oxide 400 mg magnesium cap Take 400 mg by mouth once daily. doxycycline (VIBRA-TABS) 100 mg tablet Take 1 tablet by mouth twice daily for 10 days. collagenase (SANTYL) ointment Apply to affected area once daily. methylPREDNISolone (MEDROL, MAT,) 4 mg Dose-Pack As Instructed per package blood sugar diagnostic (BLOOD GLUCOSE TEST) test strip Test blood sugar(s) 1 times daily. Dx: Type 2 DM - Controlled E11.9 Insulin: No Lancets lancets Test blood sugar(s) 1 times daily. Dx: Type 2 DM - Controlled E11.9 Insulin: No blood sugar diagnostic (RELION PRIME TEST STRIPS) test strip Test glucose 1 x per day. Dx: 250.00. Insulin use: no TENS unit and electrodes cmpk 1 Each once daily. (Patient taking differently: 1 Each once daily. Patient using PRN) TENS UNIT ELECTRODES (TENS UNITS ELECTRODES) 2X2 pads Change pad every month as indicated No current facility-administered medications for this visit. ALLERGIES Allergen Reactions Amoxicillin Hives Aspirin Hives, shortness of breath Sulfa (Sulfonamide * Hives ACTIVE PROBLEM LIST Pulmonary Hypertension (Hcc) - 05/03/2023 Ramesh (Obstructive Sleep Apnea) - 01/21/2021 Pacemaker - 01/21/2021 Bilateral Carpal Tunnel Syndrome - 01/21/2021 Atrial Flutter (Hcc) - 04/12/2019 Anticoagulated On Coumadin - 04/12/2019 Severe Low Back Pain - 12/28/2018 Ddd (Degenerative Disc Disease), Lumbar Comment: Dr. 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 [facility] 05-12-2023 Instructions Whitney Garcia APRN.DOMINGO - 05/12/2023 9:09 AM EDT Take your shower, can just let the water run over the area or can gently wash with a little bit of mild soap. Pat dry with a clean paper towel or towel. Put on the ointment (santyl) to the black area. Cover with a non-stick pad (think big band-aid.) Change daily. Elevate your foot as much as able. Ok to try cold compresses too if really painful or swollen. Ok to use Percocet as needed for pain, we can try a low dose steroid too. Stop the Keflex, start doxycycline for infection. See enterprise cloud architect (foot doctor). documented in this encounter [facility] 05-12-2023 History of Present illness Narrative Images from the original note were not included. SUBJECTIVE Keisha Red is a 78 year old female here today for an ER follow up. Chief Complaint Patient presents with: Wound Check: 05/02/2023 left foot burn from a plate of hot chicken sliding of plate 2 week ago seen in [facility] ER on 05/09/23. Was treated with cephalexin 500mg every 6 hours. HPI Keisha Red is a 78 year old female established patient of Joon Reed MD. She presents today for an ER follow up. Seen in the ER at [facility] for an injury sustained on 05/02. Her left foot was burnt from hot chicken falling on to the foot. Went to ER on 05/09, records available to review in Care Everywhere. She went in for evaluation due to noting an area of black skin and redness around the wound. Diagnosed with burn and cellulitis of the top of left foot. At the time per ER note the open wound was half dollar sized just proximal to the great and second toe. Started on Keflex for x10 days. She is a diabetic. Thinks the open area is improved but overall not much better. Very tender. Blood sugars are stable. Allergies to amoxicillin and sulfa. Her medications were reviewed today and her list is now up to date. Medications Current Outpatient Medications Medication Sig oxyCODONE-acetaminophen (PERCOCET) 5-325 mg tablet Take 1 tablet by mouth every 8 hours as needed (for severe back pain) for up to 7 days. methocarbamol (ROBAXIN) 500 mg tablet Take 1 tablet by mouth three times daily as needed (Pain/muscle spasms). metFORMIN ER (GLUCOPHAGE XR) 500 mg 24 hr tablet Take 2 tablets by mouth twice daily with meals. glimepiride (AMARYL) 2 mg tablet Take 1 tablet by mouth once daily as needed. for blood sugar over 200. (Has pills left from 2017) atorvastatin (LIPITOR) 10 mg tablet Take 1 tablet by mouth once daily. warfarin (COUMADIN) 5 mg tablet Take 1 tablet by mouth once daily. gabapentin (NEURONTIN) 300 mg capsule Take 2 capsules by mouth daily at bedtime AND 1 capsule every morning. Do all this for 180 days. albuterol HFA (PROAIR HFA) 90 mcg/actuation inhaler Inhale 2 Puffs as instructed every 4 hours as needed for wheezing/shortness of breath. 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 (Patient taking differently: Apply 2 g to affected area four times daily. Takes as needed) budesonide-formoterol (SYMBICORT) 160-4.5 mcg/actuation inhaler Inhale 2 Puffs as instructed twice daily. triamcinolone acetonide (KENALOG) 0.1 % cream Apply 1 application to affected area three times daily as needed. For rash on extremities and leg magnesium oxide 400 mg magnesium cap Take 400 mg by mouth once daily. doxycycline (VIBRA-TABS) 100 mg tablet Take 1 tablet by mouth twice daily for 10 days. collagenase (SANTYL) ointment Apply to affected area once daily. methylPREDNISolone (MEDROL, MAT,) 4 mg Dose-Pack As Instructed per package blood sugar diagnostic (BLOOD GLUCOSE TEST) test strip Test blood sugar(s) 1 times daily. Dx: Type 2 DM - Controlled E11.9 Insulin: No Lancets lancets Test blood sugar(s) 1 times daily. Dx: Type 2 DM - Controlled E11.9 Insulin: No blood sugar diagnostic (RELION PRIME TEST STRIPS) test strip Test glucose 1 x per day. Dx: 250.00. Insulin use: no TENS unit and electrodes cmpk 1 Each once daily. (Patient taking differently: 1 Each once daily. Patient using PRN) TENS UNIT ELECTRODES (TENS UNITS ELECTRODES) 2X2 pads Change pad every month as indicated No current facility-administered medications for this visit. ALLERGIES Allergen Reactions Amoxicillin Hives Aspirin Hives, shortness of breath Sulfa (Sulfonamide * Hives ACTIVE PROBLEM LIST Pulmonary Hypertension (Hcc) - 05/03/2023 Ramesh (Obstructive Sleep Apnea) - 01/21/2021 Pacemaker - 01/21/2021 Bilateral Carpal Tunnel Syndrome - 01/21/2021 Atrial Flutter (Hcc) - 04/12/2019 Anticoagulated On Coumadin - 04/12/2019 Severe Low Back Pain - 12/28/2018 Ddd (Degenerative Disc Disease), Lumbar Comment: Dr. 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 Respiratory: Negative. Cardiovascular: Negative. Skin: Positive for color change and wound. OBJECTIVE BP 134/78 Pulse 82 Wt 193 lb (87.5kg) SpO2 98% Physical Exam Vitals and nursing note reviewed. Constitutional: General: She is awake. She is not in acute distress. Appearance: Normal appearance. She is well-developed and well-groomed. She is not ill-appearing, toxic-appearing or diaphoretic. HENT: Head: Normocephalic. Right Ear: External ear normal. Left Ear: External ear normal. Nose: Nose normal. Eyes: General: Vision grossly intact. Conjunctiva/sclera: Conjunctivae normal. Pupils: Pupils are equal, round, and reactive to light. Neck: Vascular: No JVD. Trachea: Trachea normal. Cardiovascular: Pulses: Normal pulses. Pulmonary: Effort: Pulmonary effort is normal. No accessory muscle usage, prolonged expiration or respiratory distress. Musculoskeletal: Cervical back: Neck supple. Skin: General: Skin is warm and dry. Capillary Refill: Capillary refill takes less than 2 seconds. Neurological: General: No focal deficit present. Mental Status: She is alert and oriented to person, place, and time. Mental status is at baseline. Psychiatric: Attention and Perception: Attention and perception normal. Mood and Affect: Mood and affect normal. Speech: Speech normal. Behavior: Behavior normal. Behavior is cooperative. Thought Content: Thought content normal. Cognition and Memory: Cognition and memory normal. Judgment: Judgment normal. ASSESSMENT/PLAN: 1. Cellulitis of foot - ICD9: 682.7, ICD10: L03.119 (primary diagnosis Stop Keflex since not improving, start doxy, can give a steroid taper to try and reduce some of the inflammation that may be contributing to her pain, can elevate, try cool compress, try to avoid very cold to the area to avoid further tissue damage, PRN percocet. Start santyl to the wound, discussed care of the area. Will see how quick we can get her seen with podiatry. Discussed referral to podiatry versus wound care, likely can get her in with podiatry sooner to have them evaluate and help with care so we will start there since she is diabetic. If not able to be seen in the next 1-2 weeks we will have her follow up back in our office for a recheck on the wound/cellulitis. - No lymphangetic streaking, this was defined for patient to watch for and to seek medical care immediately if appears - Area of cellulitis defined, seek further attention if this area continues to enlarge - DOXYCYCLINE HYCLATE 100 MG TABLET - CONSULT TO PODIATRY - METHYLPREDNISOLONE 4 MG TABLETS IN A DOSE PACK 2. Partial thickness burn of left foot, subsequent encounter - ICD9: V58.89, 945.22, ICD10: T25.222D See #1 - COLLAGENASE CLOSTRIDIUM HISTOLYTICUM 250 UNIT/GRAM TOPICAL OINTMENT - CONSULT TO PODIATRY 3. Controlled type 2 diabetes mellitus without complication, without long-term current use of insulin (HCC) - ICD9: 250.00, ICD10: E11.9 See #1 - CONSULT TO PODIATRY Portions of this note have been entered by ancillary staff. I have reviewed and when necessary edited, so that they are an adequate record of my encounter with this patient Please note that parts of this document were created using voice recognition software and therefore may contain grammatical errors. Patient verbalizes understanding of instructions from today's visit and in agreement with treatment plan. Questions answered. Agrees to call the office if questions, concerns of issues with acute symptoms not improving or if they worsen. Return if symptoms worsen or fail to improve, for Keep next scheduled appointment.. Whitney Garcia APRN-DOMINGO documented in this encounter [facility] 05-06-2023 Miscellaneous Notes The following approved medication requests have been transmitted electronically. Requested Prescriptions Signed Prescriptions Disp Refills oxyCODONE-acetaminophen (PERCOCET) 5-325 mg tablet 21 tablet 0 Sig: Take 1 tablet by mouth every 8 hours as needed (for severe back pain) for up to 7 days. Authorizing Provider: JOON REED methocarbamol (ROBAXIN) 500 mg tablet 30 tablet 0 Sig: Take 1 tablet by mouth three times daily as needed (Pain/muscle spasms). Authorizing Provider: JOON REED MD Robaxin listed as not on formulary but might not be expensive since generic and might be on GoodRx. Did not tolerated tizanidine. Not much else for muscle relaxants. Last office visit: 04/16/23 Next appointment scheduled: 06/22/23 Patient is calling requesting a refill of the oxyCODONE-acetaminophen (PERCOCET) 5-325 mg tablet for back pain she states the flexeril does not help. Please advise the patient as she uses [facility] in [place] documented in this encounter [facility] 04-16-2023 Note HNO ID: [id number] Author: Nicolle Tang APRN.CANCELING AND CUTTING CONTROL CLERK Service: ? Author Type: Nurse Specialist Type: Progress Notes Filed: 04/16/2023 7:37 AM Note Text: SUBJECTIVE: SPIROMETRY Never done SHINGRIX VACCINE(1 of 2) Never done PNEUMOCOCCAL: 67+(2 - PCV) due on 10/01/2013 DIABETIC FOOT EXAM due on 03/11/2022 URINE ALBUMIN:CREATININE RATIO due on 10/16/2022 DILATED RETINAL EXAM due on 01/27/2023 HIREN Red is a 78 year old female. 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 Notes back pain which she states causes breathing problems x 2 weeks. Chart review indicates history of back strain recurrent and low back pain. Lumbar DDD. History of asthma. Today reports upper and lower back pain, describes spasms. Notes does use TENS unit for lumbar pain. Back pain: states upper back pain. notes feels like a back spasm. states does move furniture and subsequently gets back pain. this is recurrent. No alarm symptoms. Breathing complaint: no current breathing difficulties. AF on OAC, PPM, states seen last week. Cardiology: [facility] Bleeding difficulties: no DIABETES MELLITUS: She reports 1 blood sugar of 100 when she took metformin and did not eat as much as she usually does. Without report ofexcessive thirst or increased frequency of urination, chest pain or dyspnea , numbness, tingling or pain in extremities, new or unusual visual symptoms, low sugar/hypoglycemic reactions, weight loss/gain, lightheadedness/dizziness, and bowel changes/loose stools. Patient's last HgA1C was Hemoglobin A1C (%) Date Value 03/31/2023 6.6 10/16/2021 5.8 06/10/2021 6.0 Hemoglobin A1C (POCT) (%) Date Value 03/25/2022 6.0 ) She reports going to [facility] for eye exams. 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 No complaints with her feet. Declines exam today. HTN: Without report of headache, chest pain, palpitations, dyspnea, peripheral edema, orthopnea, fatigue, and PND. Last 14 Encounter BP Readings: Date: BP: 04/16/2023 120/80 04/03/2023 149/83 03/31/2023 128/72 03/17/2023 120/72 12/26/2022 124/78 12/04/2022 142/78 09/25/2022 128/82 07/01/2022 142/82 05/06/2022 134/80 03/25/2022 114/70 01/17/2022 112/64 11/01/2021 142/84 10/16/2021 124/76 09/18/2021 136/82 Hyperlipidemia. Ms. Red reports doing well on current therapy Her most recent lipid panels are: Cholesterol, Total (mg/dL) Date Value 03/31/2023 161 10/16/2021 159 11/29/2020 141 HDL Cholesterol (mg/dL) Date Value 03/31/2023 52 10/16/2021 62 11/29/2020 61 LDL Cholesterol (mg/dL) Date Value 03/31/2023 79 10/16/2021 71 11/29/2020 61 Triglyceride (mg/dL) Date Value 03/31/2023 148 10/16/2021 130 11/29/2020 96 She notes asthma currently controlled. Does note that she had some increased shortness of breath with the season change but currently managed. No recent exacerbation. Review of Systems Constitutional: Negative. Musculoskeletal: Positive for back pain. Objective BP 120/80 Pulse 80 Resp 16 Wt 88.5 kg (195 lb) SpO2 98% BMI 31.47 kg/m? Physical Exam Vitals and nursing note reviewed. Constitutional: Appearance: Normal appearance. HENT: Head: Normocephalic and atraumatic. Eyes: Conjunctiva/sclera: Conjunctivae normal. Neck: Thyroid: No thyromegaly. Vascular: Normal carotid pulses. No JVD. Cardiovascular: Rate and Rhythm: Normal rate and regular rhythm. Pulses: Carotid pulses are 2+ on the right side and 2+ on the left side. Radial pulses are 2+ on the right side and 2+ on the left side. Heart sounds: Normal heart sounds. Pulmonary: Effort: Pulmonary effort is normal. Breath sounds: Normal breath sounds. Abdominal: General: Bowel sounds are normal. Palpations: Abdomen is soft. Musculoskeletal: Right lower leg: No edema. Left lower leg: No edema. Comments: mild TTP mid back, lumbar region, no perispinal muscle spasms appreciated on exam Skin: General: Skin is warm and dry. Neurological: General: No focal deficit present. Mental Status: She is alert and oriented to person, place, and time. ALLERGIES Allergen Reactions Amoxicillin Hives Aspirin Hives, shortness of breath Sulfa (Sulfonamide * Hives Medications metFORMIN ER (GLUCOPHAGE XR) 500 mg 24 hr tablet Take 2 table (more content not included)... [facility] 04-16-2023 History of Present illness Narrative SUBJECTIVE: SPIROMETRY Never done SHINGRIX VACCINE(1 of 2) Never done PNEUMOCOCCAL: 65+(2 - PCV) due on 10/01/2013 DIABETIC FOOT EXAM due on 03/11/2022 URINE ALBUMIN:CREATININE RATIO due on 10/16/2022 DILATED RETINAL EXAM due on 01/27/2023 HIREN Red is a 78 year old female. 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 Notes back pain which she states causes breathing problems x 2 weeks. Chart review indicates history of back strain recurrent and low back pain. Lumbar DDD. History of asthma. Today reports upper and lower back pain, describes spasms. Notes does use TENS unit for lumbar pain. Back pain: states upper back pain. notes feels like a back spasm. states does move furniture and subsequently gets back pain. this is recurrent. No alarm symptoms. Breathing complaint: no current breathing difficulties. AF on OAC, PPM, states seen last week. Cardiology: [facility] Bleeding difficulties: no DIABETES MELLITUS: She reports 1 blood sugar of 100 when she took metformin and did not eat as much as she usually does. Without report ofexcessive thirst or increased frequency of urination, chest pain or dyspnea , numbness, tingling or pain in extremities, new or unusual visual symptoms, low sugar/hypoglycemic reactions, weight loss/gain, lightheadedness/dizziness, and bowel changes/loose stools. Patient's last HgA1C was Hemoglobin A1C (%) Date Value 03/31/2023 6.6 10/16/2021 5.8 06/10/2021 6.0 Hemoglobin A1C (POCT) (%) Date Value 03/25/2022 6.0 ) She reports going to [facility] for eye exams. 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 No complaints with her feet. Declines exam today. HTN: Without report of headache, chest pain, palpitations, dyspnea, peripheral edema, orthopnea, fatigue, and PND. Last 14 Encounter BP Readings: Date: BP: 04/16/2023 120/80 04/03/2023 149/83 03/31/2023 128/72 03/17/2023 120/72 12/26/2022 124/78 12/04/2022 142/78 09/25/2022 128/82 07/01/2022 142/82 05/06/2022 134/80 03/25/2022 114/70 01/17/2022 112/64 11/01/2021 142/84 10/16/2021 124/76 09/18/2021 136/82 Hyperlipidemia. Ms. Red reports doing well on current therapy Her most recent lipid panels are: Cholesterol, Total (mg/dL) Date Value 03/31/2023 161 10/16/2021 159 11/29/2020 141 HDL Cholesterol (mg/dL) Date Value 03/31/2023 52 10/16/2021 62 11/29/2020 61 LDL Cholesterol (mg/dL) Date Value 03/31/2023 79 10/16/2021 71 11/29/2020 61 Triglyceride (mg/dL) Date Value 03/31/2023 148 10/16/2021 130 11/29/2020 96 She notes asthma currently controlled. Does note that she had some increased shortness of breath with the season change but currently managed. No recent exacerbation. Review of Systems Constitutional: Negative. Musculoskeletal: Positive for back pain. Objective BP 120/80 Pulse 80 Resp 16 Wt 88.5 kg (195 lb) SpO2 98% BMI 31.47 kg/m Physical Exam Vitals and nursing note reviewed. Constitutional: Appearance: Normal appearance. HENT: Head: Normocephalic and atraumatic. Eyes: Conjunctiva/sclera: Conjunctivae normal. Neck: Thyroid: No thyromegaly. Vascular: Normal carotid pulses. No JVD. Cardiovascular: Rate and Rhythm: Normal rate and regular rhythm. Pulses: Carotid pulses are 2+ on the right side and 2+ on the left side. Radial pulses are 2+ on the right side and 2+ on the left side. Heart sounds: Normal heart sounds. Pulmonary: Effort: Pulmonary effort is normal. Breath sounds: Normal breath sounds. Abdominal: General: Bowel sounds are normal. Palpations: Abdomen is soft. Musculoskeletal: Right lower leg: No edema. Left lower leg: No edema. Comments: mild TTP mid back, lumbar region, no perispinal muscle spasms appreciated on exam Skin: General: Skin is warm and dry. Neurological: General: No focal deficit present. Mental Status: She is alert and oriented to person, place, and time. ALLERGIES Allergen Reactions Amoxicillin Hives Aspirin Hives, shortness of breath Sulfa (Sulfonamide * Hives Medications metFORMIN ER (GLUCOPHAGE XR) 500 mg 24 hr tablet Take 2 tablets by mouth twice daily with meals. glimepiride (AMARYL) 2 mg tablet Take 1 tablet by mouth once daily as needed. for blood sugar over 200. (Has pills left from 2017) nitrofurantoin monohydrate and macrocrystal (MACROBID) 100 mg capsule Take 1 capsule by mouth twice daily. Take as directed for UTI atorvastatin (LIPITOR) 10 mg tablet Take 1 tablet by mouth once daily. warfarin (COUMADIN) 5 mg tablet Take 1 tablet by mouth once daily. gabapentin (NEURONTIN) 300 mg capsule Take 2 capsules by mouth daily at bedtime AND 1 capsule every morning. Do all this for 180 days. blood sugar diagnostic (BLOOD GLUCOSE TEST) test strip Test blood sugar(s) 1 times daily. Dx: Type 2 DM - Controlled E11.9 Insulin: No Lancets lancets Test blood sugar(s) 1 times daily. Dx: Type 2 DM - Controlled E11.9 Insulin: No albuterol HFA (PROAIR HFA) 90 mcg/actuation inhaler Inhale 2 Puffs as instructed every 4 hours as needed for wheezing/shortness of breath. 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 Dx: 250.00. Insulin use: no diclofenac (VOLTAREN ARTHRITIS PAIN) 1 % topical gel Apply 2 g to affected area four times daily. (Patient taking differently: Apply 2 g to affected area four times daily. Takes as needed) budesonide-formoterol (SYMBICORT) 160-4.5 mcg/actuation inhaler Inhale 2 Puffs as instructed twice daily. triamcinolone acetonide (KENALOG) 0.1 % cream Apply 1 application to affected area three times daily as needed. For rash on extremities and leg magnesium oxide 400 mg magnesium cap Take 400 mg by mouth once daily. TENS unit and electrodes cmpk 1 Each once daily. (Patient taking differently: 1 Each once daily. Patient using PRN) TENS UNIT ELECTRODES (TENS UNITS ELECTRODES) 2X2 pads Change pad every month as indicated cyclobenzaprine (FLEXERIL) 10 mg tablet Take 0.5-1 tablets by mouth twice daily as needed for muscle spasm (may make drowsy, take before bedtime). oxyCODONE-acetaminophen (PERCOCET) 5-325 mg tablet Take 1 tablet by mouth every 8 hours as needed (for severe back pain) for up to 7 days. 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 Agudelo Dizziness and giddiness Muscle spasm Obesity, unspecified Palpitations Shoulder dislocation 12/06/11 Right shoulder s/p fall with reduction at [facility] Type II or unspecified type diabetes mellitus without mention of complication, not stated as uncontrolled Unspecified asthma(493.90) Unspecified essential hypertension Social History Tobacco Use Smoking status: Never Smokeless tobacco: Never Vaping Use Vaping Use: Never used Substance Use Topics Alcohol use: No Drug use: Never Hemoglobin A1C (%) Date Value 03/31/2023 6.6 10/16/2021 5.8 Hemoglobin A1C (POCT) (%) Date Value 03/25/2022 6.0 Cholesterol, Total (mg/dL) Date Value 03/31/2023 161 10/16/2021 159 HDL Cholesterol (mg/dL) Date Value 03/31/2023 52 10/16/2021 62 LDL Cholesterol (mg/dL) Date Value 03/31/2023 79 10/16/2021 71 Triglyceride (mg/dL) Date Value 03/31/2023 148 10/16/2021 130 ASSESSMENT/PLAN: 1. Back strain, subsequent encounter - ICD9: V58.89, 847.9, ICD10: S39.012D (primary diagnosis) recurrent, typically worse after she moves furniture continue with prior plan of care unchanged - CONSULT TO PHYSICAL THERAPY 2. Mild intermittent asthma without complication - ICD9: 493.90, ICD10: J45.20 Stable, currently controlled, continue to monitor. - SPIROMETRY - BASELINE AND POST DILATOR 3. Muscle spasm - ICD9: 728.85, ICD10: M62.838 declines for now - CONSULT TO PHYSICAL THERAPY 4. Back strain, sequela - ICD9: 905.7, ICD10: S39.012S Endorse gentle ROM / HEP, walking as tolerated Let us know if not improving, consider PT - CYCLOBENZAPRINE 10 MG TABLET - CONSULT TO PHYSICAL THERAPY 5. Severe low back pain - ICD9: 724.2, ICD10: M54.50 - OXYCODONE-ACETAMINOPHEN 5 MG-325 MG TABLET 6. DDD (degenerative disc disease), lumbar - ICD9: 722.52, ICD10: M51.36 - OXYCODONE-ACETAMINOPHEN 5 MG-325 MG TABLET 7. Encounter for immunization - ICD9: V03.89, ICD10: Z23 - ZOSTER VACCINE, RECOMBINANT (SHINGRIX) 8. Screening for diabetic retinopathy - ICD9: V80.2, ICD10: Z13.5 [employer] [place] 9. Controlled type 2 diabetes mellitus without complication, without long-term current use of insulin (HCC) - ICD9: 250.00, ICD10: E11.9 Nicolle Tang APRN.CANCELING AND CUTTING CONTROL CLERK Keep 3 mo follow up MD Nicolle Mcgraw APRN.CANCELING AND CUTTING CONTROL CLERK Medical Decision Making: Problems: Low: Acute, uncomplicated illness or injury Risk: Moderate: Drug management Medical Decision Making Level: 3 - Low documented in this encounter [facility] 04-15-2023 Miscellaneous Notes Patient call in for back pain which causes patient to be short of breath. Patient states that back pain is chronic and happens every time weather changes. Patient states that breathing treatments help. Nurse Triage assessment completed with protocol recommending for disposition of See PCP in 2 weeks. Patient advised to come in to see provider sooner. Patient scheduled appointment with Nicolle tomorrow morning. Care advice reviewed with patient, patient stated understanding. Patient advised to contact office or seek evaluation in urgent care or ER if symptoms persist or gets worse. Reason for Disposition [1] MILD longstanding difficulty breathing AND [2] SAME as normal Answer Assessment - Initial Assessment Questions 1. RESPIRATORY STATUS: Shortness of breath with activity 2. ONSET: Began last week 3. PATTERN Come and Go 4. SEVERITY: Mild 5. RECURRENT SYMPTOM: Yes when weather changes, patient has back pain 6. CARDIAC HISTORY: Pacemaker 7. LUNG HISTORY: Asthma 8. CAUSE: Back pain 9. OTHER SYMPTOMS: Denies Answer Assessment - Initial Assessment Questions 1. LOCATION: Patient describes it as a chest heaviness 2. RADIATION: Back 3. ONSET: X 1 week 4. PATTERN Comes and Goes; yes it gets worse when she breathes. 5. DURATION: Not very long as long as she takes a breathing treatment. 6. SEVERITY: Moderate, sleeps well though 7. CARDIAC RISK FACTORS: Pacemaker, Diabetes 8. PULMONARY RISK FACTORS: Asthma 9. CAUSE: Has trouble every time weather changes. 10. OTHER SYMPTOMS: Gets out of breath easily with activity Patient had to sit back into chair due to not being able to get out of it. Patient has issues getting in and out of chair anyways. Protocols used: Chest Fkcl-BIRRC-PG, Breathing Gyustpolsl-NCLET-GL documented in this encounter [facility] 04-03-2023 Note HNO ID: [id number] Author: Joon Reed MD Service: ? Author Type: Physician Type: Progress Notes Filed: 05/03/2023 11:38 PM Note Text: This note was created using Luxterariter. Subjective Keisha Red is a 78 year old female. Patient presents with: F/U 3 Month SUBJECTIVE: Keisha Red is a 78 year old year old lady here today for 3 month follow up appointment for review of medical conditions. Doing well overall aside from back pain and last week UTI and was in hospital ER 2 time. First time with fever, etc--sent home with cephalexin. Hit left hip when fell twice at home so went in to ER since as also confused. CT scans fine. Was able to go home. Took a week to get over UTI. Now with back spasms. Did see Whitney Garcia and was prescribed percocet--has helped but makes her sleepy so avoids taking too often. Filled 3 months or so prior. Uses TENS as needed as she had done for years. Callused area on left pinky toe along lateral edge of toe--sandal edge pushes up on lateral part of the pinky toe. Has BP cuff at home. Not validated yet. Had taken 1 pill for med from 2017--glimeperide 2mg to take if sugar over 200 had sugar up to 202. 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 Agudelo Dizziness and giddiness Muscle spasm Obesity, unspecified Palpitations Shoulder dislocation 12/06/11 Right shoulder s/p fall with reduction at [facility] Type II or unspecified type diabetes mellitus without mention of complication, not stated as uncontrolled Unspecified asthma(493.90) Unspecified essential hypertension Current Outpatient Medications Medication Sig oxyCODONE-acetaminophen (PERCOCET) 5-325 mg tablet Take 1 tablet by mouth every 8 hours as needed (for severe back pain) for up to 7 days. atorvastatin (LIPITOR) 10 mg tablet Take 1 tablet by mouth once daily. cyclobenzaprine (FLEXERIL) 10 mg tablet Take 0.5-1 tablets by mouth twice daily as needed for muscle spasm (may make drowsy, take before bedtime). warfarin (COUMADIN) 5 mg tablet Take 1 tablet by mouth once daily. gabapentin (NEURONTIN) 300 mg capsule Take 2 capsules by mouth daily at bedtime AND 1 capsule every morning. Do all this for 180 days. blood sugar diagnostic (BLOOD GLUCOSE TEST) test strip Test blood sugar(s) 1 times daily. Dx: Type 2 DM - Controlled E11.9 Insulin: No Lancets lancets Test blood sugar(s) 1 times daily. Dx: Type 2 DM - Controlled E11.9 Insulin: No metFORMIN ER (GLUCOPHAGE XR) 500 mg 24 hr tablet Take 2 tablets by mouth twice daily with meals. albuterol HFA (PROAIR HFA) 90 mcg/actuation inhaler Inhale 2 Puffs as instructed every 4 hours as needed for wheezing/shortness of breath. 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 Dx: 250.00. Insulin use: no budesonide-formoterol (SYMBICORT) 160-4.5 mcg/actuation inhaler Inhale 2 Puffs as instructed twice daily. triamcinolone acetonide (KENALOG) 0.1 % cream Apply 1 application to affected area three times daily as needed. For rash on extremities and leg magnesium oxide 400 mg magnesium cap Take 400 mg by mouth once daily. TENS unit and electrodes cmpk 1 Each once daily. (Patient taking differently: 1 Each once daily. Patient using PRN) TENS UNIT ELECTRODES (TENS UNITS ELECTRODES) 2X2 pads Change pad every month as indicated diclofenac (VOLTAREN ARTHRITIS PAIN) 1 % topical gel Apply 2 g to affected area four times daily. (Patient taking differently: Apply 2 g to affected area four times daily. Takes as needed) No current facility-administered medications for this visit. Review of Systems Objective BP 149/83 Pulse 86 Temp (!) 35.8 ?C (96.4 ?F) Resp 18 Wt 91.6 kg (202 lb) SpO2 96% BMI 32.60 kg/m? Last 5 Encounter Wt Readings: Date: Wt: 04/03/2023 91.6 kg (202 lb) 03/31/2023 91.2 kg (201 lb) 03/17/2023 89.8 kg (198 lb) 12/26/2022 90.3 kg (199 lb) 12/04/2022 92.8 kg (204 lb 9.6 oz) No waist measurement recorded Estimated body mass index is 32.6 kg/m? as calculated from the following: Height as of 01/07/22: 167.6 cm (5' 6 ). Weight as of this encounter: 91.6 kg (202 lb). Last 5 Encounter BP Readings: Date: BP: 04/03/2023 149/83 03/31/2023 128/72 03/17/2023 120/72 12/26/2022 124/78 12/04/2022 142/78 Physical Exam Constitutional: Appearance: Normal appearance. She is obese. HENT: Head: Normocephalic. Eyes: Conjunctiva/sclera: Conjunctivae normal. Cardiovascular: Rate and Rhythm: Normal rate and regular rhythm. Heart sounds: Normal heart sounds. Pulmonary: Effort: Pulmonary effort is normal. Breath sounds: Normal breath sounds. Musculoskeletal: (more content not included)... [facility] 04-03-2023 History of Present illness Narrative This note was created using NoteWriter. Subjective Keisha Red is a 78 year old female. Patient presents with: F/U 3 Month SUBJECTIVE: Keisha Red is a 78 year old year old lady here today for 3 month follow up appointment for review of medical conditions. Doing well overall aside from back pain and last week UTI and was in hospital ER 2 time. First time with fever, etc--sent home with cephalexin. Hit left hip when fell twice at home so went in to ER since as also confused. CT scans fine. Was able to go home. Took a week to get over UTI. Now with back spasms. Did see Whitney Garcia and was prescribed percocet--has helped but makes her sleepy so avoids taking too often. Filled 3 months or so prior. Uses TENS as needed as she had done for years. Callused area on left pinky toe along lateral edge of toe--sandal edge pushes up on lateral part of the pinky toe. Has BP cuff at home. Not validated yet. Had taken 1 pill for med from 2017--glimeperide 2mg to take if sugar over 200 had sugar up to 202. 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 Agudelo Dizziness and giddiness Muscle spasm Obesity, unspecified Palpitations Shoulder dislocation 12/06/11 Right shoulder s/p fall with reduction at [facility] Type II or unspecified type diabetes mellitus without mention of complication, not stated as uncontrolled Unspecified asthma(493.90) Unspecified essential hypertension Current Outpatient Medications Medication Sig oxyCODONE-acetaminophen (PERCOCET) 5-325 mg tablet Take 1 tablet by mouth every 8 hours as needed (for severe back pain) for up to 7 days. atorvastatin (LIPITOR) 10 mg tablet Take 1 tablet by mouth once daily. cyclobenzaprine (FLEXERIL) 10 mg tablet Take 0.5-1 tablets by mouth twice daily as needed for muscle spasm (may make drowsy, take before bedtime). warfarin (COUMADIN) 5 mg tablet Take 1 tablet by mouth once daily. gabapentin (NEURONTIN) 300 mg capsule Take 2 capsules by mouth daily at bedtime AND 1 capsule every morning. Do all this for 180 days. blood sugar diagnostic (BLOOD GLUCOSE TEST) test strip Test blood sugar(s) 1 times daily. Dx: Type 2 DM - Controlled E11.9 Insulin: No Lancets lancets Test blood sugar(s) 1 times daily. Dx: Type 2 DM - Controlled E11.9 Insulin: No metFORMIN ER (GLUCOPHAGE XR) 500 mg 24 hr tablet Take 2 tablets by mouth twice daily with meals. albuterol HFA (PROAIR HFA) 90 mcg/actuation inhaler Inhale 2 Puffs as instructed every 4 hours as needed for wheezing/shortness of breath. 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 Dx: 250.00. Insulin use: no budesonide-formoterol (SYMBICORT) 160-4.5 mcg/actuation inhaler Inhale 2 Puffs as instructed twice daily. triamcinolone acetonide (KENALOG) 0.1 % cream Apply 1 application to affected area three times daily as needed. For rash on extremities and leg magnesium oxide 400 mg magnesium cap Take 400 mg by mouth once daily. TENS unit and electrodes cmpk 1 Each once daily. (Patient taking differently: 1 Each once daily. Patient using PRN) TENS UNIT ELECTRODES (TENS UNITS ELECTRODES) 2X2 pads Change pad every month as indicated diclofenac (VOLTAREN ARTHRITIS PAIN) 1 % topical gel Apply 2 g to affected area four times daily. (Patient taking differently: Apply 2 g to affected area four times daily. Takes as needed) No current facility-administered medications for this visit. Review of Systems Objective BP 149/83 Pulse 86 Temp (!) 35.8 C (96.4 F) Resp 18 Wt 91.6 kg (202 lb) SpO2 96% BMI 32.60 kg/m Last 5 Encounter Wt Readings: Date: Wt: 04/03/2023 91.6 kg (202 lb) 03/31/2023 91.2 kg (201 lb) 03/17/2023 89.8 kg (198 lb) 12/26/2022 90.3 kg (199 lb) 12/04/2022 92.8 kg (204 lb 9.6 oz) No waist measurement recorded Estimated body mass index is 32.6 kg/m as calculated from the following: Height as of 01/07/22: 167.6 cm (5' 6 ). Weight as of this encounter: 91.6 kg (202 lb). Last 5 Encounter BP Readings: Date: BP: 04/03/2023 149/83 03/31/2023 128/72 03/17/2023 120/72 12/26/2022 124/78 12/04/2022 142/78 Physical Exam Constitutional: Appearance: Normal appearance. She is obese. HENT: Head: Normocephalic. Eyes: Conjunctiva/sclera: Conjunctivae normal. Cardiovascular: Rate and Rhythm: Normal rate and regular rhythm. Heart sounds: Normal heart sounds. Pulmonary: Effort: Pulmonary effort is normal. Breath sounds: Normal breath sounds. Musculoskeletal: Right lower leg: No edema. Left lower leg: No edema. Skin: General: Skin is warm and dry. Comments: Noted callus on lateral pinky toe on left Neurological: General: No focal deficit present. Mental Status: She is alert and oriented to person, place, and time. Psychiatric: Mood and Affect: Mood normal. Behavior: Behavior normal. Thought Content: Thought content normal. Judgment: Judgment normal. Labs from [facility] ER evaluation reviewed. Assessment and Plan Encounter Diagnosis ICD-10-CM 1. Controlled type 2 diabetes mellitus without complication, without long-term current use of insulin ([facility]) E11.9 metFORMIN ER (GLUCOPHAGE XR) 500 mg 24 hr tablet glimepiride (AMARYL) 2 mg tablet HGB A1C COMP METABOLIC PANEL ALBUMIN/CREAT RATIO RND UR HgA1C back to 6.6 in diabetes range 2. Urinary tract infection without hematuria, site unspecified N39.0 nitrofurantoin monohydrate and macrocrystal (MACROBID) 100 mg capsule Gets confusion when gets UTI. 3. Strain of neck muscle, subsequent encounter S16.1XXD 4. Primary hypertension I10 COMP METABOLIC PANEL CBC LIPID PANEL BASIC 5. Contusion of left hip, subsequent encounter S70.02XD doing better now after fell at home when had UTI 6. Mixed hyperlipidemia E78.2 LIPID PANEL BASIC 7. Atrial flutter, unspecified type ([facility]) I48.92 8. Pacemaker Z95.0 9. Essential hypertension I10 10. Mild intermittent asthma without complication J45.20 11. RAMESH (obstructive sleep apnea) G47.33 12. 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 Anticoagulated on Coumadin Z79.01 14. Pulmonary hypertension (HCC) I27.20 Follows with [place] pulmonology Above issues addressed with patient. Patient involved in shared decision making for management of medical issues. History and medications reviewed. Epic updated as needed Refills and/or prescriptions taken care of and meds adjusted as indicated after reviewed history, exam and labs. Health Maintenance reviewed. Updated record and/or ordered tests as recorded. Encouraged on efforts at healthy diet and regular exercise and adequate sleep. Further evaluation and treatment as indicated. I spent a total of 34 minutes on the date of the service which included [id number] patient care, completing clinical documentation, performing a medically appropriate examination, counseling and educating the patient/family/caregiver, ordering medications, tests, or procedures, and communicating results to the patient/family/caregiver. Joon Reed MD documented in this encounter [facility] 03-31-2023 Note HNO ID: [id number] Author: Whtiney Garcia APRN.URBAN SOCIOLOGIST Service: ? Author Type: Nurse Practitioner Type: Progress Notes Filed: 03/31/2023 12:31 PM Note Text: SUBJECTIVE Keisha Red is a 78 year old female here today for acute concern. Chief Complaint Patient presents with: Neck Pain: right posterior neck for about 3 months HPI Keisha Red is a 78 year old female established patient of Joon Reed MD who presents for some concerns of neck pain. Onset about 3 weeks ago. Located to right side of back of neck, lower area at base of neck. On coumadin, no bruising. No numbness, tingling or weakness into the arm. Constant. Described as a nagging pain. Radiates down the back a little at times. Alleviated some with some topical creams. Aggravated with nothing specific, just there. No injury that she knows of. Has a TENS unit, taking the muscle relaxer at night and it does make her a little sleepy, voltaren gel as needed. Has not tried ice. Took percocet and helpful. Her medications were reviewed today and her list is now up to date. Medications Current Outpatient Medications Medication Sig atorvastatin (LIPITOR) 10 mg tablet Take 1 tablet by mouth once daily. cyclobenzaprine (FLEXERIL) 10 mg tablet Take 0.5-1 tablets by mouth twice daily as needed for muscle spasm (may make drowsy, take before bedtime). warfarin (COUMADIN) 5 mg tablet Take 1 tablet by mouth once daily. gabapentin (NEURONTIN) 300 mg capsule Take 2 capsules by mouth daily at bedtime AND 1 capsule every morning. Do all this for 180 days. metFORMIN ER (GLUCOPHAGE XR) 500 mg 24 hr tablet Take 2 tablets by mouth twice daily with meals. albuterol HFA (PROAIR HFA) 90 mcg/actuation inhaler Inhale 2 Puffs as instructed every 4 hours as needed for wheezing/shortness of breath. 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 (Patient taking differently: Apply 2 g to affected area four times daily. Takes as needed) budesonide-formoterol (SYMBICORT) 160-4.5 mcg/actuation inhaler Inhale 2 Puffs as instructed twice daily. triamcinolone acetonide (KENALOG) 0.1 % cream Apply 1 application to affected area three times daily as needed. For rash on extremities and leg magnesium oxide 400 mg magnesium cap Take 400 mg by mouth once daily. oxyCODONE-acetaminophen (PERCOCET) 5-325 mg tablet Take 1 tablet by mouth every 8 hours as needed (for severe back pain) for up to 7 days. blood sugar diagnostic (BLOOD GLUCOSE TEST) test strip Test blood sugar(s) 1 times daily. Dx: Type 2 DM - Controlled E11.9 Insulin: No Lancets lancets Test blood sugar(s) 1 times daily. Dx: Type 2 DM - Controlled E11.9 Insulin: No blood sugar diagnostic (RELION PRIME TEST STRIPS) test strip Test glucose 1 x per day. Dx: 250.00. Insulin use: no TENS unit and electrodes cmpk 1 Each once daily. (Patient taking differently: 1 Each once daily. Patient using PRN) TENS UNIT ELECTRODES (TENS UNITS ELECTRODES) 2X2 pads Change pad every month as indicated No current facility-administered medications for this visit. ALLERGIES Allergen Reactions Amoxicillin Hives Aspirin Hives, shortness of breath Sulfa (Sulfonamide * Hives ACTIVE PROBLEM LIST Ramesh (Obstructive Sleep Apnea) - 01/21/2021 Pacemaker - 01/21/2021 Bilateral Carpal Tunnel Syndrome - 01/21/2021 Atrial Flutter (Hcc) - 04/12/2019 Anticoagulated On Coumadin - 04/12/2019 Severe Low Back Pain - 12/28/2018 Ddd (Degenerative Disc Disease), Lumbar Comment: Dr. 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 Negative for arthralgias, back pain, gait problem, joint swelling and neck stiffness. OBJECTIVE BP 128/72 Pulse 81 Wt 201 lb (91.2kg) SpO2 97% Physical Exam Vitals and nursing note reviewed. Constitutional: General: She is awake. She is not in acute distress. Appearance: Normal appearance. She is well-developed and well-groomed. She is not ill-appearing, toxic-appearing or diaphoretic. HENT: Head: Normocephalic. Right Ear: External ear normal. Left Ear: External ear normal. Nose: Nose normal. Eyes: General: Vision grossly intact. Conjunctiva/scl (more content not included)... [facility] 03-31-2023 Instructions Whitney Garcia APRN.DOMINGO - 03/31/2023 9:27 AM EDT Rest. Ice or heat. Take muscle relaxer as needed. Can use tylenol or the percocet as needed. Do not exceed 3000 mg of tylenol in 24 hours. Try some gentle stretches. Update us with your appointment on Thursday, if still having a lot of issues then we can try a steroid. documented in this encounter [facility] 06-06-2023 History of Present illness Narrative Images from the original note were not included. SUBJECTIVE Keisha Red is a 78 year old female here today for acute concern. Chief Complaint Patient presents with: Neck Pain: right posterior neck for about 3 months HPI Keisha Red is a 78 year old female established patient of Joon Reed MD who presents for some concerns of neck pain. Onset about 3 weeks ago. Located to right side of back of neck, lower area at base of neck. On coumadin, no bruising. No numbness, tingling or weakness into the arm. Constant. Described as a nagging pain. Radiates down the back a little at times. Alleviated some with some topical creams. Aggravated with nothing specific, just there. No injury that she knows of. Has a TENS unit, taking the muscle relaxer at night and it does make her a little sleepy, voltaren gel as needed. Has not tried ice. Took percocet and helpful. Her medications were reviewed today and her list is now up to date. Medications Current Outpatient Medications Medication Sig atorvastatin (LIPITOR) 10 mg tablet Take 1 tablet by mouth once daily. cyclobenzaprine (FLEXERIL) 10 mg tablet Take 0.5-1 tablets by mouth twice daily as needed for muscle spasm (may make drowsy, take before bedtime). warfarin (COUMADIN) 5 mg tablet Take 1 tablet by mouth once daily. gabapentin (NEURONTIN) 300 mg capsule Take 2 capsules by mouth daily at bedtime AND 1 capsule every morning. Do all this for 180 days. metFORMIN ER (GLUCOPHAGE XR) 500 mg 24 hr tablet Take 2 tablets by mouth twice daily with meals. albuterol HFA (PROAIR HFA) 90 mcg/actuation inhaler Inhale 2 Puffs as instructed every 4 hours as needed for wheezing/shortness of breath. 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 (Patient taking differently: Apply 2 g to affected area four times daily. Takes as needed) budesonide-formoterol (SYMBICORT) 160-4.5 mcg/actuation inhaler Inhale 2 Puffs as instructed twice daily. triamcinolone acetonide (KENALOG) 0.1 % cream Apply 1 application to affected area three times daily as needed. For rash on extremities and leg magnesium oxide 400 mg magnesium cap Take 400 mg by mouth once daily. oxyCODONE-acetaminophen (PERCOCET) 5-325 mg tablet Take 1 tablet by mouth every 8 hours as needed (for severe back pain) for up to 7 days. blood sugar diagnostic (BLOOD GLUCOSE TEST) test strip Test blood sugar(s) 1 times daily. Dx: Type 2 DM - Controlled E11.9 Insulin: No Lancets lancets Test blood sugar(s) 1 times daily. Dx: Type 2 DM - Controlled E11.9 Insulin: No blood sugar diagnostic (RELION PRIME TEST STRIPS) test strip Test glucose 1 x per day. Dx: 250.00. Insulin use: no TENS unit and electrodes cmpk 1 Each once daily. (Patient taking differently: 1 Each once daily. Patient using PRN) TENS UNIT ELECTRODES (TENS UNITS ELECTRODES) 2X2 pads Change pad every month as indicated No current facility-administered medications for this visit. ALLERGIES Allergen Reactions Amoxicillin Hives Aspirin Hives, shortness of breath Sulfa (Sulfonamide * Hives ACTIVE PROBLEM LIST Ramesh (Obstructive Sleep Apnea) - 01/21/2021 Pacemaker - 01/21/2021 Bilateral Carpal Tunnel Syndrome - 01/21/2021 Atrial Flutter (Hcc) - 04/12/2019 Anticoagulated On Coumadin - 04/12/2019 Severe Low Back Pain - 12/28/2018 Ddd (Degenerative Disc Disease), Lumbar Comment: Dr. 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 Negative for arthralgias, back pain, gait problem, joint swelling and neck stiffness. OBJECTIVE BP 128/72 Pulse 81 Wt 201 lb (91.2kg) SpO2 97% Physical Exam Vitals and nursing note reviewed. Constitutional: General: She is awake. She is not in acute distress. Appearance: Normal appearance. She is well-developed and well-groomed. She is not ill-appearing, toxic-appearing or diaphoretic. HENT: Head: Normocephalic. Right Ear: External ear normal. Left Ear: External ear normal. Nose: Nose normal. Eyes: General: Vision grossly intact. Conjunctiva/sclera: Conjunctivae normal. Pupils: Pupils are equal, round, and reactive to light. Neck: Vascular: No JVD. Trachea: Trachea normal. Cardiovascular: Rate and Rhythm: Normal rate and regular rhythm. Pulses: Normal pulses. Heart sounds: Normal heart sounds. No murmur heard. Pulmonary: Effort: Pulmonary effort is normal. No accessory muscle usage, prolonged expiration or respiratory distress. Breath sounds: Normal breath sounds. Musculoskeletal: Cervical back: Neck supple. Tenderness (paraspinal on right side) present. No swelling, edema, deformity, erythema, signs of trauma, lacerations, rigidity, spasms, torticollis, bony tenderness or crepitus. No pain with movement. Normal range of motion. Back: Skin: General: Skin is warm and dry. Capillary Refill: Capillary refill takes less than 2 seconds. Neurological: General: No focal deficit present. Mental Status: She is alert and oriented to person, place, and time. Mental status is at baseline. Psychiatric: Attention and Perception: Attention and perception normal. Mood and Affect: Mood and affect normal. Speech: Speech normal. Behavior: Behavior normal. Behavior is cooperative. Thought Content: Thought content normal. Cognition and Memory: Cognition and memory normal. Judgment: Judgment normal. ASSESSMENT/PLAN: 1. Strain of neck muscle, initial encounter - ICD9: 847.0, ICD10: S16.1XXA (primary diagnosis) Discussed rest, ice and/or heat, taking her muscle relaxer more consistent, can take tylenol as needed or percocet as needed and discussed safe amounts of tylenol to take in 24 hours, encouraged gentle stretching and can try her TENS unit. Not a great location for compression or elevation. IF pain persistent/not improving with her follow up Thursday we could consider a steroid to treat but will wait given her sugars have been a little higher. 2. Severe low back pain - ICD9: 724.2, ICD10: M54.50 PDMP website checked and validated. All prescriptions have been APPROPRIATELY filled. No suspicious activity was identified. 03/31/2023 by Whitney Garcia APRN.CNP - OXYCODONE-ACETAMINOPHEN 5 MG-325 MG TABLET 3. DDD (degenerative disc disease), lumbar - ICD9: 722.52, ICD10: M51.36 - OXYCODONE-ACETAMINOPHEN 5 MG-325 MG TABLET 4. Encounter for therapeutic drug monitoring - ICD9: V58.83, ICD10: Z51.81 Labs for appointment Thursday. - HGB A1C - LIPID PANEL BASIC - CBC + DIFF - COMP METABOLIC PANEL Portions of this note have been entered by ancillary staff. I have reviewed and when necessary edited, so that they are an adequate record of my encounter with this patient Please note that parts of this document were created using voice recognition software and therefore may contain grammatical errors. Patient verbalizes understanding of instructions from today's visit and in agreement with treatment plan. Questions answered. Agrees to call the office if questions, concerns of issues with acute symptoms not improving or if they worsen. Return if symptoms worsen or fail to improve, for Keep next scheduled appointment.. Whitney Garcia APRN-DOMINGO documented in this encounter [facility] 03-26-2023 Miscellaneous Notes Patient has been identified by name and date of : Yes, Provider Date Time Patient phones for refill(s): Requested Prescriptions Pending Prescriptions Disp Refills atorvastatin (LIPITOR) 10 mg tablet 90 tablet 3 Sig: Take 1 tablet by mouth once daily. Date of last office visit with pcp: 12/26/22 Date of last office visit in primary care: Last 2 Encounter Wt Readings: Date: Wt: 03/17/2023 89.8 kg (198 lb) 12/26/2022 90.3 kg (199 lb) Previous labs/tests for medication: Cholesterol: HDL Cholesterol (mg/dL) Date Value 10/16/2021 62 LDL Cholesterol (mg/dL) Date Value 10/16/2021 71 ALT (U/L) Date Value 10/16/2021 17 Non HDL Cholesterol (mg/dL) Date Value 10/16/2021 97 Please advise. Thank you. Taylor Ruffin RN documented in this encounter [facility] 03-17-2023 Note HNO ID: [id number] Author: Souleymane Shepard APRN.URBAN SOCIOLOGIST Service: ? Author Type: Nurse Practitioner Type: Progress Notes Filed: 03/17/2023 6:29 PM Note Text: BP 120/72 Pulse 88 Temp (!) 38 ?C (100.4 ?F) Resp 18 Wt 89.8 kg (198 lb) SpO2 96% BMI 31.96 kg/m? Nontoxic-appearing female presents urgent care accompanied by family members. Chief complaint possible UTI altered mental status shortness of breath. Duration of symptoms 1 week. Associated symptoms listed above. Upon evaluating patient's vital signs and appearance I recommend patient be seen in ED to rule out urosepsis. Patient was escorted to exit. Family member will proceed to [facility] for further evaluation care. Caregiver verbalized understand agrees with plan of care. Souleymane Shepard APRN.URBAN SOCIOLOGIST [facility] 12-26-2022 Miscellaneous Notes Electronic PA completed for cyclobenzaprine. This was approved form 12/12/22 to 12/27/23. documented in this encounter [facility] 12-26-2022 Note HNO ID: [id number] Author: Joon Reed MD Service: ? Author Type: Physician Type: Progress Notes Filed: 01/26/2023 12:44 AM Note Text: This note was created using Luxterariter. Subjective Keisha Red is a 77 year old female. Patient presents with: F/U 3 Month SUBJECTIVE: Keisha Red is a 77 year old year old lady here today for 3 month follow up appointment for review of medical conditions. Pain med--only needs when severe so last RX lasted till now and still has 5 pills left. Helps prevent need to go to ER with severe pain. Does have HCDPOA and LW--asked to drop off copy. 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 Was getting out of back of a car with friends. Depression Screening 03/11/2021 03/25/2022 09/25/2022 12/26/2022 PHQ-2 Score 0 0 0 0 PHQ-9 Score 0 - - - Depression screening tool completed and reviewed. Based on score and interview, patient is not at risk for depression. Screening tool discussed with patient, and I recommended no further intervention at this time. 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 Agudelo Dizziness and giddiness Muscle spasm Obesity, unspecified Palpitations Shoulder dislocation 12/06/11 Right shoulder s/p fall with reduction at [facility] Type II or unspecified type diabetes mellitus without mention of complication, not stated as uncontrolled Unspecified asthma(493.90) Unspecified essential hypertension Current Outpatient Medications Medication Sig warfarin (COUMADIN) 5 mg tablet Take 1 tablet by mouth once daily. gabapentin (NEURONTIN) 300 mg capsule Take 2 capsules by mouth daily at bedtime AND 1 capsule every morning. Do all this for 180 days. blood sugar diagnostic (BLOOD GLUCOSE TEST) test strip Test blood sugar(s) 1 times daily. Dx: Type 2 DM - Controlled E11.9 Insulin: No Lancets lancets Test blood sugar(s) 1 times daily. Dx: Type 2 DM - Controlled E11.9 Insulin: No metFORMIN ER (GLUCOPHAGE XR) 500 mg 24 hr tablet Take 2 tablets by mouth twice daily with meals. albuterol HFA (PROAIR HFA) 90 mcg/actuation inhaler Inhale 2 Puffs as instructed every 4 hours as needed for wheezing/shortness of breath. 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 Dx: 250.00. Insulin use: no cyclobenzaprine (FLEXERIL) 10 mg tablet Take 0.5-1 tablets by mouth twice daily as needed for muscle spasm (may make drowsy, take before bedtime). atorvastatin (LIPITOR) 10 mg tablet Take 1 tablet by mouth once daily. diclofenac (VOLTAREN ARTHRITIS PAIN) 1 % topical gel Apply 2 g to affected area four times daily. (Patient taking differently: Apply 2 g to affected area four times daily. Takes as needed) budesonide-formoterol (SYMBICORT) 160-4.5 mcg/actuation inhaler Inhale 2 Puffs as instructed twice daily. triamcinolone acetonide (KENALOG) 0.1 % cream Apply 1 application to affected area three times daily as needed. For rash on extremities and leg magnesium oxide 400 mg magnesium cap Take 400 mg by mouth once daily. TENS unit and electrodes cmpk 1 Each once daily. (Patient taking differently: 1 Each once daily. Patient using PRN) TENS UNIT ELECTRODES (TENS UNITS ELECTRODES) 2X2 pads Change pad every month as indicated No current facility-administered medications for this visit. Review of Systems Objective BP 124/78 Pulse 91 Temp 36.1 ?C (96.9 ?F) Resp 18 Wt 90.3 kg (199 lb) SpO2 97% BMI 32.12 kg/m? Last 5 Encounter Wt Readings: Date: Wt: 12/26/2022 90.3 kg (199 lb) 12/04/2022 92.8 kg (204 lb 9.6 oz) 09/25/2022 90.3 kg (199 lb) 07/01/2022 88 kg (194 lb) 05/06/2022 88.5 kg (195 lb) No waist measurement recorded Estimated body mass index is 32.12 kg/m? as calculated from the following: Height as of 01/07/22: 167.6 cm (5' 6 ). Weight as of this encounter: 90.3 kg (199 lb). Last 5 Encounter BP Readings: Date: BP: 12/26/2022 124/78 12/04/2022 142/78 09/25/2022 128/82 07/01/2022 142/82 05/06/2022 134/80 Physical Exam Constitutional: Appearance: Normal appearance. HENT: Head: Normocephalic. Eyes: Conjunctiva/sclera: Conjunctivae normal. Cardiovascular: Rate and Rhythm: Normal rate and regular rhythm. Heart sounds: Normal heart sounds. Pulmonary: Effort: Pulmonary effort is normal. Breath sounds: Normal breath sounds. Skin: General: Skin is warm and dry. Neurological: General: No focal deficit present. Mental Status: She is alert and oriented to person, place, and time. Psychiatric: Mood and Affect: Mood normal. Behavior: Behavior normal. Thought Content: Thought content normal. Judgment: Judgment normal (more content not included)... [facility] 12-26-2022 History of Present illness Narrative This note was created using Luxterariter. Subjective Keisha Red is a 77 year old female. Patient presents with: F/U 3 Month SUBJECTIVE: Keisha Red is a 77 year old year old lady here today for 3 month follow up appointment for review of medical conditions. Pain med--only needs when severe so last RX lasted till now and still has 5 pills left. Helps prevent need to go to ER with severe pain. Does have HCDPOA and LW--asked to drop off copy. 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 Was getting out of back of a car with friends. Depression Screening 03/11/2021 03/25/2022 09/25/2022 12/26/2022 PHQ-2 Score 0 0 0 0 PHQ-9 Score 0 - - - Depression screening tool completed and reviewed. Based on score and interview, patient is not at risk for depression. Screening tool discussed with patient, and I recommended no further intervention at this time. 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 Agudelo Dizziness and giddiness Muscle spasm Obesity, unspecified Palpitations Shoulder dislocation 12/06/11 Right shoulder s/p fall with reduction at [facility] Type II or unspecified type diabetes mellitus without mention of complication, not stated as uncontrolled Unspecified asthma(493.90) Unspecified essential hypertension Current Outpatient Medications Medication Sig warfarin (COUMADIN) 5 mg tablet Take 1 tablet by mouth once daily. gabapentin (NEURONTIN) 300 mg capsule Take 2 capsules by mouth daily at bedtime AND 1 capsule every morning. Do all this for 180 days. blood sugar diagnostic (BLOOD GLUCOSE TEST) test strip Test blood sugar(s) 1 times daily. Dx: Type 2 DM - Controlled E11.9 Insulin: No Lancets lancets Test blood sugar(s) 1 times daily. Dx: Type 2 DM - Controlled E11.9 Insulin: No metFORMIN ER (GLUCOPHAGE XR) 500 mg 24 hr tablet Take 2 tablets by mouth twice daily with meals. albuterol HFA (PROAIR HFA) 90 mcg/actuation inhaler Inhale 2 Puffs as instructed every 4 hours as needed for wheezing/shortness of breath. 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 Dx: 250.00. Insulin use: no cyclobenzaprine (FLEXERIL) 10 mg tablet Take 0.5-1 tablets by mouth twice daily as needed for muscle spasm (may make drowsy, take before bedtime). atorvastatin (LIPITOR) 10 mg tablet Take 1 tablet by mouth once daily. diclofenac (VOLTAREN ARTHRITIS PAIN) 1 % topical gel Apply 2 g to affected area four times daily. (Patient taking differently: Apply 2 g to affected area four times daily. Takes as needed) budesonide-formoterol (SYMBICORT) 160-4.5 mcg/actuation inhaler Inhale 2 Puffs as instructed twice daily. triamcinolone acetonide (KENALOG) 0.1 % cream Apply 1 application to affected area three times daily as needed. For rash on extremities and leg magnesium oxide 400 mg magnesium cap Take 400 mg by mouth once daily. TENS unit and electrodes cmpk 1 Each once daily. (Patient taking differently: 1 Each once daily. Patient using PRN) TENS UNIT ELECTRODES (TENS UNITS ELECTRODES) 2X2 pads Change pad every month as indicated No current facility-administered medications for this visit. Review of Systems Objective BP 124/78 Pulse 91 Temp 36.1 C (96.9 F) Resp 18 Wt 90.3 kg (199 lb) SpO2 97% BMI 32.12 kg/m Last 5 Encounter Wt Readings: Date: Wt: 12/26/2022 90.3 kg (199 lb) 12/04/2022 92.8 kg (204 lb 9.6 oz) 09/25/2022 90.3 kg (199 lb) 07/01/2022 88 kg (194 lb) 05/06/2022 88.5 kg (195 lb) No waist measurement recorded Estimated body mass index is 32.12 kg/m as calculated from the following: Height as of 01/07/22: 167.6 cm (5' 6 ). Weight as of this encounter: 90.3 kg (199 lb). Last 5 Encounter BP Readings: Date: BP: 12/26/2022 124/78 12/04/2022 142/78 09/25/2022 128/82 07/01/2022 142/82 05/06/2022 134/80 Physical Exam Constitutional: Appearance: Normal appearance. HENT: Head: Normocephalic. Eyes: Conjunctiva/sclera: Conjunctivae normal. Cardiovascular: Rate and Rhythm: Normal rate and regular rhythm. Heart sounds: Normal heart sounds. Pulmonary: Effort: Pulmonary effort is normal. Breath sounds: Normal breath sounds. Skin: General: Skin is warm and dry. Neurological: General: No focal deficit present. Mental Status: She is alert and oriented to person, place, and time. Psychiatric: Mood and Affect: Mood normal. Behavior: Behavior normal. Thought Content: Thought content normal. Judgment: Judgment normal. Hemoglobin A1C (%) Date Value 10/16/2021 5.8 06/10/2021 6.0 11/29/2020 5.8 03/22/2020 5.9 07/02/2018 5.7 Hemoglobin A1C (POCT) (%) Date Value 03/25/2022 6.0 Assessment and Plan Encounter Diagnosis ICD-10-CM 1. Controlled type 2 diabetes mellitus without complication, without long-term current use of insulin (HCC) E11.9 HGB A1C COMP METABOLIC PANEL ALBUMIN/CREAT RATIO RND UR 2. Severe low back pain M54.50 oxyCODONE-acetaminophen (PERCOCET) 5-325 mg tablet Chronic back pain with occasional episodes severe back pain when needs Percocet.Sporadic episodes are infrequent.Needs to have med on hand to treat prn 3. Back strain, sequela S39.012S cyclobenzaprine (FLEXERIL) 10 mg tablet 4. DDD (degenerative disc disease), lumbar M51.36 oxyCODONE-acetaminophen (PERCOCET) 5-325 mg tablet 5. Primary hypertension I10 COMP METABOLIC PANEL CBC 6. Mixed hyperlipidemia E78.2 LIPID PANEL BASIC 7. Class 1 obesity due to excess calories with body mass index (BMI) of 32.0 to 32.9 in adult, unspecified whether serious comorbidity present E66.09 Z68.32 8. Sprain of left knee, unspecified ligament, initial encounter S83.92XA oxyCODONE-acetaminophen (PERCOCET) 5-325 mg tablet 9. Acute pain of left knee M25.562 oxyCODONE-acetaminophen (PERCOCET) 5-325 mg tablet Rule out meniscal tear based on history and tenderness medial joint line. Occasional flare ups noted 10. Anticoagulated on Coumadin Z79.01 11. Colon cancer screening Z12.11 FECAL OCCULT BLOOD TEST Above issues addressed with patient. Patient involved in shared decision making for management of medical issues. History and medications reviewed. Epic updated as needed Refills and/or prescriptions taken care of and meds adjusted as indicated after reviewed history, exam and labs. Health Maintenance reviewed. Updated record and/or ordered tests as recorded. Encouraged on efforts at healthy diet and regular exercise and adequate sleep. Needs to keep working on diet and exercise with lifestyle changes for effective weight loss as well as control of DM, and control of BP and lipids. Weight starting to come back down. Went back up but not back to where was 10 years ago. Stable with control of pain with having a few pills to treat acute flare ups of pain . No signs of diversion or abuse of medication(s); no adverse effects. Continue present management. Follow up with ortho or pain management as needed. Joon Reed MD documented in this encounter [facility] 12-04-2022 Note HNO ID: [id number] Author: Daron Singh MD Service: ? Author Type: Physician Type: Progress Notes Filed: 12/04/2022 11:28 AM Note Text: Patient presents with: Urinary Frequency: With pressure x last night HPI: Symptoms started last night. Dysuria: No Frequency: Yes Hematuria: No Nausea: No Fever or chills: No Back pain: No Abdominal pain: bladder pressure only Prior UTI: Yes Drinking cran-grape juice. MEDICATIONS: Current Outpatient Medications Medication Sig warfarin (COUMADIN) 5 mg tablet Take 1 tablet by mouth once daily. gabapentin (NEURONTIN) 300 mg capsule Take 2 capsules by mouth daily at bedtime AND 1 capsule every morning. Do all this for 180 days. blood sugar diagnostic (BLOOD GLUCOSE TEST) test strip Test blood sugar(s) 1 times daily. Dx: Type 2 DM - Controlled E11.9 Insulin: No Lancets lancets Test blood sugar(s) 1 times daily. Dx: Type 2 DM - Controlled E11.9 Insulin: No metFORMIN ER (GLUCOPHAGE XR) 500 mg 24 hr tablet Take 2 tablets by mouth twice daily with meals. albuterol HFA (PROAIR HFA) 90 mcg/actuation inhaler Inhale 2 Puffs as instructed every 4 hours as needed for wheezing/shortness of breath. 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 Dx: 250.00. Insulin use: no cyclobenzaprine (FLEXERIL) 10 mg tablet Take 0.5-1 tablets by mouth twice daily as needed for muscle spasm (may make drowsy, take before bedtime). atorvastatin (LIPITOR) 10 mg tablet Take 1 tablet by mouth once daily. diclofenac (VOLTAREN ARTHRITIS PAIN) 1 % topical gel Apply 2 g to affected area four times daily. (Patient taking differently: Apply 2 g to affected area four times daily. Takes as needed) budesonide-formoterol (SYMBICORT) 160-4.5 mcg/actuation inhaler Inhale 2 Puffs as instructed twice daily. triamcinolone acetonide (KENALOG) 0.1 % cream Apply 1 application to affected area three times daily as needed. For rash on extremities and leg magnesium oxide 400 mg magnesium cap Take 400 mg by mouth once daily. TENS unit and electrodes cmpk 1 Each once daily. (Patient taking differently: 1 Each once daily. Patient using PRN) TENS UNIT ELECTRODES (TENS UNITS ELECTRODES) 2X2 pads Change pad every month as indicated No current facility-administered medications for this visit. ALLERGIES: ALLERGIES Allergen Reactions Amoxicillin Hives Aspirin Hives, shortness of breath Sulfa (Sulfonamide * Hives VITALS: BP 142/78 Pulse 90 Temp 36.9 ?C (98.4 ?F) Resp 18 Wt 92.8 kg (204 lb 9.6 oz) SpO2 97% BMI 33.02 kg/m? 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 Agudelo Dizziness and giddiness Muscle spasm Obesity, unspecified Palpitations Shoulder dislocation 12/06/11 Right shoulder s/p fall with reduction at [facility] Type II or unspecified type diabetes mellitus without mention of complication, not stated as uncontrolled Unspecified asthma(493.90) Unspecified essential hypertension Component Latest Ref Rng AND Units 10/16/2021 eGFR-All Other Races . 55 ASSESSMENT/PLAN: 1. Urinary frequency - ICD9: 788.41, ICD10: R35.0 - UA positive for large trae esterase and hematuria - UA DIP, URINE (POC) Insufficient urine amount for culture. Will treat with nitrofurantoin. Has sulfa and PCN allergies. Will return if symptoms are not improving. Recommended to have labs checked before follow-up with PCP next month. Daron Singh MD [facility] 12-04-2022 History of Present illness Narrative Patient presents with: Urinary Frequency: With pressure x last night HPI: Symptoms started last night. Dysuria: No Frequency: Yes Hematuria: No Nausea: No Fever or chills: No Back pain: No Abdominal pain: bladder pressure only Prior UTI: Yes Drinking cran-grape juice. MEDICATIONS: Current Outpatient Medications Medication Sig warfarin (COUMADIN) 5 mg tablet Take 1 tablet by mouth once daily. gabapentin (NEURONTIN) 300 mg capsule Take 2 capsules by mouth daily at bedtime AND 1 capsule every morning. Do all this for 180 days. blood sugar diagnostic (BLOOD GLUCOSE TEST) test strip Test blood sugar(s) 1 times daily. Dx: Type 2 DM - Controlled E11.9 Insulin: No Lancets lancets Test blood sugar(s) 1 times daily. Dx: Type 2 DM - Controlled E11.9 Insulin: No metFORMIN ER (GLUCOPHAGE XR) 500 mg 24 hr tablet Take 2 tablets by mouth twice daily with meals. albuterol HFA (PROAIR HFA) 90 mcg/actuation inhaler Inhale 2 Puffs as instructed every 4 hours as needed for wheezing/shortness of breath. 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 Dx: 250.00. Insulin use: no cyclobenzaprine (FLEXERIL) 10 mg tablet Take 0.5-1 tablets by mouth twice daily as needed for muscle spasm (may make drowsy, take before bedtime). atorvastatin (LIPITOR) 10 mg tablet Take 1 tablet by mouth once daily. diclofenac (VOLTAREN ARTHRITIS PAIN) 1 % topical gel Apply 2 g to affected area four times daily. (Patient taking differently: Apply 2 g to affected area four times daily. Takes as needed) budesonide-formoterol (SYMBICORT) 160-4.5 mcg/actuation inhaler Inhale 2 Puffs as instructed twice daily. triamcinolone acetonide (KENALOG) 0.1 % cream Apply 1 application to affected area three times daily as needed. For rash on extremities and leg magnesium oxide 400 mg magnesium cap Take 400 mg by mouth once daily. TENS unit and electrodes cmpk 1 Each once daily. (Patient taking differently: 1 Each once daily. Patient using PRN) TENS UNIT ELECTRODES (TENS UNITS ELECTRODES) 2X2 pads Change pad every month as indicated No current facility-administered medications for this visit. ALLERGIES: ALLERGIES Allergen Reactions Amoxicillin Hives Aspirin Hives, shortness of breath Sulfa (Sulfonamide * Hives VITALS: BP 142/78 Pulse 90 Temp 36.9 C (98.4 F) Resp 18 Wt 92.8 kg (204 lb 9.6 oz) SpO2 97% BMI 33.02 kg/m PHYSICAL EXAM: GEN: NAD HEENT: EOMI, conjunctiva clear, HEART: regular rate and rhythm, no murmurs LUNGS: clear to auscultation, no wheezes or crackles, no increased WOB ABDOMEN: Soft, nondistended, no masses, no suprapubic tenderness BACK: No CVA tenderness PAST MEDICAL HISTORY Diagnosis Date Allergic rhinitis, cause unspecified Allergic rhinitis Back Strain, recurrent Controlled with TENS and rest prn 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 Agudelo Dizziness and giddiness Muscle spasm Obesity, unspecified Palpitations Shoulder dislocation 12/06/11 Right shoulder s/p fall with reduction at [facility] Type II or unspecified type diabetes mellitus without mention of complication, not stated as uncontrolled Unspecified asthma(493.90) Unspecified essential hypertension Component Latest Ref Rng & Units 10/16/2021 eGFR-All Other Races . 55 ASSESSMENT/PLAN: 1. Urinary frequency - ICD9: 788.41, ICD10: R35.0 - UA positive for large trae esterase and hematuria - UA DIP, URINE (POC) Insufficient urine amount for culture. Will treat with nitrofurantoin. Has sulfa and PCN allergies. Will return if symptoms are not improving. Recommended to have labs checked before follow-up with PCP next month. Daron Singh MD documented in this encounter [facility] 12-04-2022 Miscellaneous Notes noted, agree with urgent care Patient calling she is noticing she is voiding smaller amounts, and burning with urination and has frequency for several hours each day. Aware PCP is out of office today and patient can not make the appt time offered for [employer]T [employer]INE[employer]. Advised patient that she can walk in at the [facility] for evaluation to see if she has UTI. Patient plans to do that today. documented in this encounter [facility] 11-20-2022 Miscellaneous Notes Patient has been identified by name and date of : Yes Requested Prescriptions Pending Prescriptions Disp Refills warfarin (COUMADIN) 5 mg tablet 90 tablet 3 Sig: Take 1 tablet by mouth once daily. CARL-09/25/22 Labs-10/16/21 NOV-12/26/22 med filled 11/22/21 RX INSTRUCTIONS: Patient aware RX will be sent to pharmacy. No need to notify patient. Cecilia Rojo Pss documented in this encounter [facility] 09-15-2022 Miscellaneous Notes Last filled February. Uses med sparingly for severe pain. The following approved medication requests have been transmitted electronically. Requested Prescriptions Signed Prescriptions Disp Refills oxyCODONE-acetaminophen (PERCOCET) 5-325 mg tablet 21 tablet 0 Sig: Take 1 tablet by mouth every 8 hours as needed for pain for up to 7 days. Authorizing Provider: JOON REED MD Patient has been identified by name and date of : Yes Requested Prescriptions Pending Prescriptions Disp Refills oxyCODONE-acetaminophen (PERCOCET) 5-325 mg tablet Sig: Last filled February RX INSTRUCTIONS: had back muscle spasms last night bad. Patient aware RX will be sent to pharmacy. No need to notify patient. Omaira Ortega Pss documented in this encounter [facility] 07-28-2022 Miscellaneous Notes Patient calling asking for new glucose meter, one she had stopped working. She does not know which meter is covered by her insurance. Pending generic meter, strips, lancets to file. Patient uses [facility] for her pharmacy. Aware PCP is out of office. Please advise Patient has been identified by name and date of : Yes Patient phones for refill(s): Requested Prescriptions Pending Prescriptions Disp Refills Blood-Glucose Meter monitoring kit 1 Each 0 Sig: Glucose Meter of Choice - Kit - Dx: Type 2 DM - Controlled E11.9 Insulin No Testing blood sugar once daily blood sugar diagnostic (BLOOD GLUCOSE TEST) test strip 50 Strip 11 Sig: Test blood sugar(s) 1 times daily. Dx: Type 2 DM - Controlled E11.9 Insulin: No Lancets lancets 100 Each 11 Sig: Test blood sugar(s) 1 times daily. Dx: Type 2 DM - Controlled E11.9 Insulin: No Date of last office visit in primary care: 07/01/2022, has appt 09/25/2022 Last 2 Encounter Wt Readings: Date: Wt: 07/01/2022 88 kg (194 lb) 05/06/2022 88.5 kg (195 lb) Previous labs/tests for medication: Diabetes: Hemoglobin A1C (%) Date Value 10/16/2021 5.8 06/10/2021 6.0 Hemoglobin A1C (POCT) (%) Date Value 03/25/2022 6.0 Please advise. Thank you. Tamy Donis LPN documented in this encounter [facility] 07-01-2022 History of Present illness Narrative This note was created using [employer] (Inside[employer])ter. Subjective Keisha Red is a 77 year old female. Patient presents with: Hospital F/U SUBJECTIVE: Keisha Red is a 77 year old year old lady here today for hospital follow up appointment for review of medical conditions. Doing well after in hospital overnight 06/18 to 06/19 after second trip to ER. Confusion noted. Did get better overnight. COVID 19 was diagnosed..patient No problems with vomiting or diarrhea. Did not recall having nausea or vomiting when was ill and admitted. Does recall diarrhea when has to urinate. This started before COVID infection. A little bit of nausea but not bad. Nocturia several times last night but resolved. No dysuria noted. Might need to back off tea. 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 Agudelo Dizziness and giddiness Muscle spasm Obesity, unspecified Palpitations Shoulder dislocation 12/06/11 Right shoulder s/p fall with reduction at [facility] Type II or unspecified type diabetes mellitus without mention of complication, not stated as uncontrolled Unspecified asthma(493.90) Unspecified essential hypertension PAST SURGICAL HISTORY Procedure Laterality Date APPENDECTOMY 1970s INCISE FINGER TENDON SHEATH Right 09/25/2020 right middle trigger finger release PACEMAKER 03/31/2019 PAST SURGICAL HISTORY OF Left left middle trigger finger release REVISE MEDIAN N/CARPAL TUNNEL SURG 01/23/2021 Bilateral carpal tunnel release and left middle trigger finger release Current Outpatient Medications Medication Sig metFORMIN ER (GLUCOPHAGE XR) 500 mg 24 hr tablet Take 2 tablets by mouth twice daily with meals. albuterol HFA (PROAIR HFA) 90 mcg/actuation inhaler Inhale 2 Puffs as instructed every 4 hours as needed for wheezing/shortness of breath. 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 Do all this for 180 days. blood sugar diagnostic (RELION PRIME TEST STRIPS) test strip Test glucose 1 x per day. Dx: 250.00. Insulin use: no cyclobenzaprine (FLEXERIL) 10 mg tablet Take 0.5-1 tablets by mouth twice daily as needed for muscle spasm (may make drowsy, take before bedtime). atorvastatin (LIPITOR) 10 mg tablet Take 1 tablet by mouth once daily. warfarin (COUMADIN) 5 mg tablet Take 1 tablet by mouth once daily. diclofenac (VOLTAREN ARTHRITIS PAIN) 1 % topical gel Apply 2 g to affected area four times daily. (Patient taking differently: Apply 2 g to affected area four times daily. Takes as needed) budesonide-formoterol (SYMBICORT) 160-4.5 mcg/actuation inhaler Inhale 2 Puffs as instructed twice daily. triamcinolone acetonide (KENALOG) 0.1 % cream Apply 1 application to affected area three times daily as needed. For rash on extremities and leg magnesium oxide 400 mg magnesium cap Take 400 mg by mouth once daily. TENS unit and electrodes cmpk 1 Each once daily. (Patient taking differently: 1 Each once daily. Patient using PRN) TENS UNIT ELECTRODES (TENS UNITS ELECTRODES) 2X2 pads Change pad every month as indicated benzonatate (TESSALON PERLES) 100 mg capsule Take 1-2 capsules by mouth three times daily as needed for cough. (Patient not taking: Reported on 07/01/2022) No current facility-administered medications for this visit. Review of Systems Objective BP 142/82 Pulse 76 Wt 88 kg (194 lb) SpO2 96% BMI 31.31 kg/m Physical Exam Constitutional: Appearance: Normal appearance. She is obese. HENT: Head: Normocephalic. Eyes: Conjunctiva/sclera: Conjunctivae normal. Cardiovascular: Rate and Rhythm: Normal rate and regular rhythm. Heart sounds: Normal heart sounds. Pulmonary: Effort: Pulmonary effort is normal. Breath sounds: Normal breath sounds. Skin: General: Skin is warm and dry. Neurological: General: No focal deficit present. Mental Status: She is alert and oriented to person, place, and time. Psychiatric: Mood and Affect: Mood normal. Behavior: Behavior normal. Thought Content: Thought content normal. Judgment: Judgment normal. Assessment and Plan Encounter Diagnosis ICD-10-CM 1. COVID-19 virus infection U07.1 encelophalopathy resolved while in hospital overnight; caught from granddaughter 2. Diarrhea of infectious origin A09 3. Severe low back pain M54.50 oxyCODONE-acetaminophen (PERCOCET) 5-325 mg tablet Chronic back pain with occasional episodes severe back pain when needs Percocet.Sporadic episodes are infrequent.Needs to have med on hand to treat prn. 4. DDD (degenerative disc disease), lumbar M51.36 oxyCODONE-acetaminophen (PERCOCET) 5-325 mg tablet 5. Acute pain of left knee M25.562 oxyCODONE-acetaminophen (PERCOCET) 5-325 mg tablet Rule out meniscal tear based on history and tenderness medial joint line 6. Sprain of left knee, unspecified ligament, initial encounter S83.92XA oxyCODONE-acetaminophen (PERCOCET) 5-325 mg tablet 7. Severe low back pain M54.50 oxyCODONE-acetaminophen (PERCOCET) 5-325 mg tablet Chronic back pain with occasional episodes severe back pain when needs Percocet.Sporadic episodes are infrequent.Needs to have med on hand to treat prn Above issues addressed with patient. Patient involved in shared decision making for management of medical issues. Reviewed hospital stay. Stable now. Further evaluation and treatment as indicated. History and medications reviewed. Epic updated as needed Refills and/or prescriptions taken care of and meds adjusted as indicated after reviewed history, exam and labs. Health Maintenance reviewed. Updated record and/or ordered tests as recorded. Encouraged on efforts at healthy diet and regular exercise and adequate sleep. Joon Reed MD documented in this encounter [facility] 06-17-2022 Miscellaneous Notes Daughter phoned to report patient is going back to [facility] ER. Reports something is not right. Daughter is on her way to patient's home. Check for ER notes for upcoming visit. Should return to ER if severe symptoms or concerns prior to visit with Joon Reed MD. FYI: Pt's daughter Brooke called in to let you know pt went to ER last night 06-16-22 with confusion. Per daughter pt's urine was tested and there was no infection. Will keep apt tomorrow 06/18/[address] Reed. Pt still not feeling well. Maddie Rojo LPN documented in this encounter [facility] 06-16-2022 Miscellaneous Notes Daughter calling, mother seems to be having confusion. Patient states I am fine when asked what day she stated Thursday When asked where she was she said I can not see it is dark she seemed uncertain where she was. Stated I am in the driveway per daughter is in her living room. Advised to call 911 for transport to ER Reason for Disposition [1] Difficult to awaken or acting confused (e.g., disoriented, slurred speech) AND [2] present now AND [3] new-onset Protocols used: Confusion - [id number] documented in this encounter [facility] 05-13-2022 Miscellaneous Notes Noted. Xi Worley APRN.URBAN SOCIOLOGIST x3 attempt. Unable to reach patient. Contacted [facility] & confirmed with physical therapist technician patient picked up medication 05/11/22 @ 12:02 PM. Reached out to EC daughter Dian Sullivan. Results given to daughter & confirmed patient has started [place] medications. Daughter states patient is starting to do/sound a lot better. Will close TE at this time. Genevieve Lopez MA Phoned pt again, no answer, left message to return call to office. Curtis Yi LPN Did patient receive this message? Xi Worley APRN.CNP TC to pt. LM to call office, ask for triage nurse to get results. Miguelina Olmstead LPN Lets go ahead and cover her with antibiotics. I went ahead and sent doxy into the pharmacy. I also sent some tessalon perles for cough -- she can do 1-2 of these three times daily as needed for cough. Xi Worley APRN.CNP Xi Worley APRN.CNP 05/06/22 5:35 PM Note Can please let patient know that the chest xray did not show any pneumonia. Xi Worley APRN.CNP Patient returned call and given result. Patient states she is about the same as when seen in office yesterday. She states her wheezing and coughing is getting to her and would like to know what cough medicine is recommended for her to take? Please advise. Thank you. Can please let patient know that her COVID test was negative. Please see how patient is feeling today. Xi Worley APRN.DOMINGO documented in this encounter [facility] 05-07-2022 Miscellaneous Notes See other TE. Curtis Yi LPN Can please let patient know that the chest xray did not show any pneumonia. Xi Worley APRN.DOMINGO Pt calling for results from CXR that was completed this am. Elvia Orellana LPN documented in this encounter [facility] 05-06-2022 Miscellaneous Notes See office notes. Xi Worley APRN.CNP Pt called in and states wheezing, coughing x 3 days. No apt available today with pcp/team/Int med. Apt booked with FP. Maddie Rojo LPN documented in this encounter [facility] 05-06-2022 Instructions Xi Worley APRN.CNP - 05/06/2022 9:05 AM EDT 1. Get the xray. 2. Start the prednisone -- 2 pills daily X 5 days. 3. Watch sugars. Let us know if getting high. 4. Push fluids. 5. Let us know if not improving or getting worse. documented in this encounter [facility] 05-06-2022 History of Present illness Narrative This is a 77 year old female who presents today with: Patient presents with: Shortness of Breath: x 3 days Cough: x 3 days, no fever/headache/sore throat HISTORY OF PRESENT ILLNESS: Keisha Red is a 77 year old female. Patient presents with: Shortness of Breath: x 3 days Cough: x 3 days, no fever/headache/sore throat Pt presents today w/ complaint of difficulty breathing. Refers that she is wheezing a lot. Nothing is coming up. Started about three days ago. No fevers/chills. No smoking history. + hx of asthma. Uses symbicort. Has been using the albuterol quite a bit. Not taking anything for the cough. No sick exposures. + runny nose. No sore throat. No headache. No ear pain. No n/v/d. No loss of taste/smell. 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 Agudelo Dizziness and giddiness Muscle spasm Obesity, unspecified Palpitations Shoulder dislocation 12/06/11 Right shoulder s/p fall with reduction at [facility] Type II or unspecified type diabetes mellitus without mention of complication, not stated as uncontrolled Unspecified asthma(493.90) Unspecified essential hypertension PAST SURGICAL HISTORY Procedure Laterality Date APPENDECTOMY 1970s INCISE FINGER TENDON SHEATH Right 09/25/2020 right middle trigger finger release PACEMAKER 03/31/2019 PAST SURGICAL HISTORY OF Left left middle trigger finger release REVISE MEDIAN N/CARPAL TUNNEL SURG 01/23/2021 Bilateral carpal tunnel release and left middle trigger finger release ALLERGIES Amoxicillin, Aspirin, and Sulfa (Sulfonamide Antibiotics) MEDICATIONS Current Outpatient Medications Medication Sig metFORMIN ER (GLUCOPHAGE XR) 500 mg 24 hr tablet Take 2 tablets by mouth twice daily with meals. albuterol HFA (PROAIR HFA) 90 mcg/actuation inhaler Inhale 2 Puffs as instructed every 4 hours as needed for wheezing/shortness of breath. 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 Do all this for 180 days. blood sugar diagnostic (RELION PRIME TEST STRIPS) test strip Test glucose 1 x per day. Dx: 250.00. Insulin use: no cyclobenzaprine (FLEXERIL) 10 mg tablet Take 0.5-1 tablets by mouth twice daily as needed for muscle spasm (may make drowsy, take before bedtime). atorvastatin (LIPITOR) 10 mg tablet Take 1 tablet by mouth once daily. warfarin (COUMADIN) 5 mg tablet Take 1 tablet by mouth once daily. diclofenac (VOLTAREN ARTHRITIS PAIN) 1 % topical gel Apply 2 g to affected area four times daily. (Patient taking differently: Apply 2 g to affected area four times daily. Takes as needed ) budesonide-formoterol (SYMBICORT) 160-4.5 mcg/actuation inhaler Inhale 2 Puffs as instructed twice daily. triamcinolone acetonide (KENALOG) 0.1 % cream Apply 1 application to affected area three times daily as needed. For rash on extremities and leg magnesium oxide 400 mg magnesium cap Take 400 mg by mouth once daily. TENS unit and electrodes cmpk 1 Each once daily. (Patient taking differently: 1 Each once daily. Patient using PRN ) TENS UNIT ELECTRODES (TENS UNITS ELECTRODES) 2X2 pads Change pad every month as indicated No current facility-administered medications for this visit. FAMILY HISTORY Problem Relation Age of Onset Diabetes Mother Coronary Artery Disease Father Cancer Sister lung Migraines Son other (nephrolithiasis) Son Hypertension Son Migraines Daughter Social History Tobacco Use Smoking status: Never Smoker Smokeless tobacco: Never Used Vaping Use Vaping Use: Never used Substance Use Topics Alcohol use: No Drug use: Never EXAM: BP 134/80 Pulse 79 Resp 18 Wt 88.5 kg (195 lb) SpO2 96% BMI 31.47 kg/m PHYSICAL EXAM: General Appearance: Well appearing, alert, in no acute distress, well-hydrated, well nourished.. Skin: Skin color, texture, turgor normal, no suspicious rashes or lesions. Head: Normocephalic, no masses, lesions, tenderness or abnormalities. Eyes: Anicteric sclera. Pupils are equally round and reactive to light. Extraocular movements are intact. . Ears: External ears normal, canals clear. Oropharynx: Lips, mucosa, and tongue normal, teeth and gums normal, oropharynx normal. Neck: Supple, no adenopathy; thyroid symmetric, normal size, no bruits. Lungs: Positive findings: wheezing . Heart: RRR without murmur, gallop, or rubs. No ectopy. Extremities: No deformities, edema, skin discoloration, clubbing or cyanosis. Good capillary refill. . Neurologic: Gait normal. ASSESSMENT/PLAN: 1. Mild intermittent asthma with acute exacerbation - ICD9: 493.92, ICD10: J45.21 (primary diagnosis) Suspect exacerbation. Will start prednisone. Sugars have been controlled. Aware to notify provider of any elevated readings. Stay hydrated. - PREDNISONE 20 MG TABLET 2. Viral upper respiratory tract infection - ICD9: 465.9, ICD10: J06.9 Will get chest xray to r/o pneumonia. Will also get covid testing. If symptoms are not improving in the next 24-48 hours or any worsening, consider adding antibiotic therapy if indicated. - XR CHEST 2V FRONTAL/LAT - 2019 CORONAVIRUS Discussed treatment plan and patient voices understanding. Patient's questions answered appropriately. Medications and potential side effects were discussed and patient voices understanding. Return to the office as scheduled or as needed for worsening/no improvement. Xi Worley APRN.DOMINGO documented in this encounter [facility] 04-18-2022 Miscellaneous Notes Okayed Patient has been identified by name and date of : Yes Pending Prescriptions Disp Refills METFORMIN ER 500 MG TABLET,EXTENDED RELEASE 24 HR 360 tablet 3 Sig: Take 2 tablets by mouth twice daily with meals. GARLAND: No RX INSTRUCTIONS: Per Patient she thought she still had medication left but she cannot find it. Please send today, she only has 2 pills left. Patient aware RX will be sent to pharmacy. No need to notify patient. Taniya Baig Pss documented in this encounter [facility] 03-25-2022 History of Present illness Narrative This note was created using Luxterariter. Subjective Keisha Red is a 77 year old female. Patient presents with: Follow Up SUBJECTIVE: Keisha Red is a 77 year old year old lady here today for 2 month follow up appointment for review of medical conditions. Left eye had surgery. Cannot see out of it. Right eye okay. 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 Agudelo Dizziness and giddiness Muscle spasm Obesity, unspecified Palpitations Shoulder dislocation 12/06/11 Right shoulder s/p fall with reduction at [facility] Type II or unspecified type diabetes mellitus without mention of complication, not stated as uncontrolled Unspecified asthma(493.90) Unspecified essential hypertension Current Outpatient Medications Medication Sig albuterol HFA (PROAIR HFA) 90 mcg/actuation inhaler Inhale 2 Puffs as instructed every 4 hours as needed for wheezing/shortness of breath. 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 Do all this for 180 days. blood sugar diagnostic (RELION PRIME TEST STRIPS) test strip Test glucose 1 x per day. Dx: 250.00. Insulin use: no cyclobenzaprine (FLEXERIL) 10 mg tablet Take 0.5-1 tablets by mouth twice daily as needed for muscle spasm (may make drowsy, take before bedtime). atorvastatin (LIPITOR) 10 mg tablet Take 1 tablet by mouth once daily. warfarin (COUMADIN) 5 mg tablet Take 1 tablet by mouth once daily. diclofenac (VOLTAREN ARTHRITIS PAIN) 1 % topical gel Apply 2 g to affected area four times daily. (Patient taking differently: Apply 2 g to affected area four times daily. Takes as needed ) metFORMIN ER (GLUCOPHAGE XR) 500 mg 24 hr tablet Take 2 tablets by mouth twice daily with meals. budesonide-formoterol (SYMBICORT) 160-4.5 mcg/actuation inhaler Inhale 2 Puffs as instructed twice daily. triamcinolone acetonide (KENALOG) 0.1 % cream Apply 1 application to affected area three times daily as needed. For rash on extremities and leg magnesium oxide 400 mg magnesium cap Take 400 mg by mouth once daily. TENS unit and electrodes cmpk 1 Each once daily. (Patient taking differently: 1 Each once daily. Patient using PRN ) TENS UNIT ELECTRODES (TENS UNITS ELECTRODES) 2X2 pads Change pad every month as indicated No current facility-administered medications for this visit. Review of Systems Objective BP 148/82 Pulse 83 Wt 88 kg (194 lb) SpO2 97% BMI 31.31 kg/m Last 5 Encounter Wt Readings: Date: Wt: 03/25/2022 88 kg (194 lb) 01/17/2022 84.8 kg (187 lb) 01/07/2022 86.2 kg (190 lb) 11/01/2021 83.9 kg (185 lb) 10/16/2021 82.6 kg (182 lb) No waist measurement recorded Estimated body mass index is 31.31 kg/m as calculated from the following: Height as of 01/07/22: 167.6 cm (5' 6 ). Weight as of this encounter: 88 kg (194 lb). Last 5 Encounter BP Readings: Date: BP: 03/25/2022 148/82 01/17/2022 112/64 11/01/2021 142/84 10/16/2021 124/76 09/18/2021 136/82 03/25/22 1520 03/25/22 1603 BP: 148/82 114/70 Pulse: 83 SpO2: 97% Weight: 88 kg (194 lb) Physical Exam Constitutional: Appearance: Normal appearance. HENT: Head: Normocephalic. Eyes: Conjunctiva/sclera: Conjunctivae normal. Cardiovascular: Rate and Rhythm: Normal rate and regular rhythm. Heart sounds: Normal heart sounds. Pulmonary: Effort: Pulmonary effort is normal. Breath sounds: Normal breath sounds. Musculoskeletal: Right lower leg: Edema (trace) present. Left lower leg: Edema (trace) present. Skin: General: Skin is warm and dry. Neurological: General: No focal deficit present. Mental Status: She is alert and oriented to person, place, and time. Psychiatric: Mood and Affect: Mood normal. Behavior: Behavior normal. Thought Content: Thought content normal. Judgment: Judgment normal. Component Latest Ref Rng & Units 11/29/2020 06/10/2021 10/16/2021 Protein, Total 6.3 - 8.0 g/dL 7.2 7.7 Albumin 3.9 - 4.9 g/dL 4.3 4.5 Calcium 8.5 - 10.2 mg/dL 10.0 9.9 Bilirubin, Total 0.2 - 1.3 mg/dL 0.6 0.5 Alkaline Phosphatase 34 - 123 U/L 74 83 AST 13 - 35 U/L 22 32 Glucose 74 - 99 mg/dL 104 (H) 71 (L) BUN 7 - 21 mg/dL 17 22 (H) Creatinine 0.58 - 0.96 mg/dL 0.92 0.99 (H) Sodium 136 - 144 mmol/L 139 138 Potassium 3.7 - 5.1 mmol/L 4.3 4.1 Chloride 97 - 105 mmol/L 105 103 CO2 22 - 30 mmol/L 21 (L) 23 Anion Gap 9 - 18 mmol/L 13 12 ALT 7 - 38 U/L 15 17 eGFR- >60 >60 eGFR-All Other Races . 60 55 WBC 3.70 - 11.00 k/uL 8.30 7.42 RBC 3.90 - 5.20 m/uL 4.21 4.51 Hemoglobin 11.5 - 15.5 g/dL 13.8 14.6 Hematocrit 36.0 - 46.0 % 41.1 44.4 MCV 80.0 - 100.0 fL 97.6 98.4 MCH 26.0 - 34.0 pG 32.8 32.4 MCHC 30.5 - 36.0 g/dL 33.6 32.9 RDW-CV 11.5 - 15.0 % 12.3 12.6 Platelet Count 150 - 400 k/uL 144 (L) 156 MPV 9.0 - 12.7 fL 10.1 10.3 Absolute nRBC <0.01 k/uL <0.01 <0.01 Cholesterol, Total <200 mg/dL 141 159 Triglyceride <150 mg/dL 96 130 HDL Cholesterol >39 mg/dL 61 62 LDL Cholesterol <100 mg/dL 61 71 Non HDL Cholesterol <130 mg/dL 80 97 Fasting Time hrs 15 12 VLDL Cholesterol <30 mg/dL 19 26 TC:HDL Ratio <5.10 2.31 2.56 LDL:HDL Ratio <2.54 1.00 1.15 Creatinine, Ur Random (UCRR) 20 - 300 mg/dL 154.3 75.3 Albumin, Urine Random mg/L 51.8 16.6 Albumin/Creat Ratio <30 mg/g 34 (H) 22 Hemoglobin A1C 4.3 - 5.6 % 5.8 (H) 6.0 (H) 5.8 (H) Estimated Average Glucose mg/dL 120 126 120 Assessment and Plan ASSESSMENT/PLAN: 1. Controlled type 2 diabetes mellitus without complication, without long-term current use of insulin (HCC) - ICD9: 250.00, ICD10: E11.9 (primary diagnosis) Controlled. - Continue current medications - Needs to keep working on diet and exercise with lifestyle changes for effective weight loss as well as control of DM, and control of BP and lipids. - HEMOGLOBIN A1C (POC) - BASIC METABOLIC PNL 2. Essential hypertension - ICD9: 401.9, ICD10: I10 - good control - Continue current medication(s) - Recommended regular aerobic exercise. - Recommend home blood pressure monitoring, to bring results in on next visit - Goal of BP <130/80 3. Mild intermittent asthma without complication - ICD9: 493.90, ICD10: J45.20 Mild intermittent Asthma stable - Continue current meds - Avoidance of triggers recommended 4. Anticoagulated on Coumadin - ICD9: V58.61, ICD10: Z79.01 Will get INRs at [facility] as usual and have managed by [facility] 5. Encounter for long-term current use of medication - ICD9: V58.69, ICD10: Z79.899 - CBC 6. Atrial flutter, unspecified type (HCC) - ICD9: 427.32, ICD10: I48.92 stable on meds Joon Reed MD documented in this encounter [facility] 01-17-2022 History of Present illness Narrative This note was created using Luxterariter. Subjective Keisha Red is a 76 year old female. Patient presents with: Follow Up SUBJECTIVE: Keisha Red is a 76 year old year old lady here today for follow up appointment for review of medical conditions. Has not had COVID. Still declines vaccine. Family has had COVID in the past. But not Omicron since not recently. Will see eye doctor this year. Had cataracts done last year and exam was fine last year. Issues with right eye. Dr. Whitehead and surgeon seen last year Discussed advanced directives. Brooke is her surrogate (dtr). 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 Agudelo Dizziness and giddiness Muscle spasm Obesity, unspecified Palpitations Shoulder dislocation 12/06/11 Right shoulder s/p fall with reduction at [facility] Type II or unspecified type diabetes mellitus without mention of complication, not stated as uncontrolled Unspecified asthma(493.90) Unspecified essential hypertension Current Outpatient Medications Medication Sig atorvastatin (LIPITOR) 10 mg tablet Take 1 tablet by mouth once daily. warfarin (COUMADIN) 5 mg tablet Take 1 tablet by mouth once daily. albuterol HFA (PROAIR HFA) 90 mcg/actuation inhaler Inhale 2 Puffs as instructed every 4 hours as needed for wheezing/shortness of breath. 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 gabapentin (NEURONTIN) 300 mg capsule Take 2 capsules by mouth daily at bedtime AND 1 capsule every morning. Do all this for 180 days. diclofenac (VOLTAREN ARTHRITIS PAIN) 1 % topical gel Apply 2 g to affected area four times daily. (Patient taking differently: Apply 2 g to affected area four times daily. Takes as needed ) metFORMIN ER (GLUCOPHAGE XR) 500 mg 24 hr tablet Take 2 tablets by mouth twice daily with meals. budesonide-formoterol (SYMBICORT) 160-4.5 mcg/actuation inhaler Inhale 2 Puffs as instructed twice daily. triamcinolone acetonide (KENALOG) 0.1 % cream Apply 1 application to affected area three times daily as needed. For rash on extremities and leg magnesium oxide 400 mg magnesium cap Take 400 mg by mouth once daily. blood sugar diagnostic (RELION PRIME TEST STRIPS) test strip Test glucose 1 x per day. Dx: 250.00. Insulin use: no TENS unit and electrodes cmpk 1 Each once daily. (Patient taking differently: 1 Each once daily. Patient using PRN ) TENS UNIT ELECTRODES (TENS UNITS ELECTRODES) 2X2 pads Change pad every month as indicated No current facility-administered medications for this visit. Review of Systems Objective BP 150/82 Pulse 84 Wt 84.8 kg (187 lb) BMI 30.18 kg/m Last 5 Encounter Wt Readings: Date: Wt: 01/17/2022 84.8 kg (187 lb) 01/07/2022 86.2 kg (190 lb) 11/01/2021 83.9 kg (185 lb) 10/16/2021 82.6 kg (182 lb) 09/18/2021 82.7 kg (182 lb 6.4 oz) No waist measurement recorded Estimated body mass index is 30.18 kg/m as calculated from the following: Height as of 01/07/22: 167.6 cm (5' 6 ). Weight as of this encounter: 84.8 kg (187 lb). Last 5 Encounter BP Readings: Date: BP: 01/17/2022 150/82 11/01/2021 142/84 10/16/2021 124/76 09/18/2021 136/82 07/17/2021 122/78 01/17/22 1026 01/17/22 1110 BP: 150/82 112/64 Pulse: 84 Weight: 84.8 kg (187 lb) Physical Exam Constitutional: Appearance: Normal appearance. HENT: Head: Normocephalic. Eyes: Conjunctiva/sclera: Conjunctivae normal. Cardiovascular: Rate and Rhythm: Normal rate and regular rhythm. Heart sounds: Normal heart sounds. Pulmonary: Effort: Pulmonary effort is normal. Breath sounds: Normal breath sounds. Skin: General: Skin is warm and dry. Neurological: General: No focal deficit present. Mental Status: She is alert and oriented to person, place, and time. Psychiatric: Mood and Affect: Mood normal. Behavior: Behavior normal. Thought Content: Thought content normal. Judgment: Judgment normal. Component Latest Ref Rng & Units 10/16/2021 Protein, Total 6.3 - 8.0 g/dL 7.7 Albumin 3.9 - 4.9 g/dL 4.5 Calcium 8.5 - 10.2 mg/dL 9.9 Bilirubin, Total 0.2 - 1.3 mg/dL 0.5 Alkaline Phosphatase 34 - 123 U/L 83 AST 13 - 35 U/L 32 Glucose 74 - 99 mg/dL 71 (L) BUN 7 - 21 mg/dL 22 (H) Creatinine 0.58 - 0.96 mg/dL 0.99 (H) Sodium 136 - 144 mmol/L 138 Potassium 3.7 - 5.1 mmol/L 4.1 Chloride 97 - 105 mmol/L 103 CO2 22 - 30 mmol/L 23 Anion Gap 9 - 18 mmol/L 12 ALT 7 - 38 U/L 17 eGFR- >60 eGFR-All Other Races . 55 WBC 3.70 - 11.00 k/uL 7.42 RBC 3.90 - 5.20 m/uL 4.51 Hemoglobin 11.5 - 15.5 g/dL 14.6 Hematocrit 36.0 - 46.0 % 44.4 MCV 80.0 - 100.0 fL 98.4 MCH 26.0 - 34.0 pG 32.4 MCHC 30.5 - 36.0 g/dL 32.9 RDW-CV 11.5 - 15.0 % 12.6 Platelet Count 150 - 400 k/uL 156 MPV 9.0 - 12.7 fL 10.3 Absolute nRBC <0.01 k/uL <0.01 Cholesterol, Total <200 mg/dL 159 Triglyceride <150 mg/dL 130 HDL Cholesterol >39 mg/dL 62 LDL Cholesterol <100 mg/dL 71 Non HDL Cholesterol <130 mg/dL 97 Fasting Time hrs 12 VLDL Cholesterol <30 mg/dL 26 TC:HDL Ratio <5.10 2.56 LDL:HDL Ratio <2.54 1.15 Creatinine, Ur Random (UCRR) 20 - 300 mg/dL 75.3 Albumin, Urine Random mg/L 16.6 Albumin/Creat Ratio <30 mg/g 22 Hemoglobin A1C 4.3 - 5.6 % 5.8 (H) Estimated Average Glucose mg/dL 120 Assessment and Plan Encounter Diagnosis ICD-10-CM 1. Diabetes mellitus type 2, controlled, without complications (HCC) E11.9 blood sugar diagnostic (RELION PRIME TEST STRIPS) test strip 2. Essential hypertension I10 3. Moderate persistent asthma without complication J45.40 4. Colon cancer screening Z12.11 FECAL OCCULT BLOOD TEST 5. Eczema, unspecified type L30.9 Much better than in the past; mild flare up left villagomez; has TAC; encouraged lotion routinely 6. Severe low back pain M54.50 oxyCODONE-acetaminophen (PERCOCET) 5-325 mg tablet Chronic back pain with occasional episodes severe back pain when needs Percocet.Sporadic episodes are infrequent.Needs to have med on hand to treat prn 7. DDD (degenerative disc disease), lumbar M51.36 oxyCODONE-acetaminophen (PERCOCET) 5-325 mg tablet 8. Acute pain of left knee M25.562 oxyCODONE-acetaminophen (PERCOCET) 5-325 mg tablet Rule out meniscal tear based on history and tenderness medial joint line 9. Sprain of left knee, unspecified ligament, initial encounter S83.92XA oxyCODONE-acetaminophen (PERCOCET) 5-325 mg tablet 10. Back strain, sequela S39.012S cyclobenzaprine (FLEXERIL) 10 mg tablet ASSESSMENT/PLAN: 1. Diabetes mellitus type 2, controlled, without complications (HCC) - ICD9: 250.00, ICD10: E11.9 (primary diagnosis) Controlled. - Continue current medications - Encouraged regular aerobic exercise and weight loss - RELION PRIME TEST STRIPS 2. Essential hypertension - ICD9: 401.9, ICD10: I10 - good control - Continue current medication(s) - Recommended regular aerobic exercise. - Recommend home blood pressure monitoring, to bring results in on next visit - Goal of BP <130/80 3. Moderate persistent asthma without complication - ICD9: 493.90, ICD10: J45.40 Moderate persistent Asthma stable - Continue current meds - Albuterol MDI 2 puffs with spacer beginning with URI's TID x 5 days then prn, Instructed if using >2 times per week when well to set up appointment for further evaluation - Avoidance of triggers recommended 4. Colon cancer screening - ICD9: V76.51, ICD10: Z12.11 - FECAL OCCULT BLOOD TEST 5. Eczema, unspecified type - ICD9: 692.9, ICD10: L30.9 - discussed skin care of rash - follow up if symptoms persist or worsen. - Continue present management. No severe stasis dermatitis of legs as before 6. Severe low back pain - ICD9: 724.2, ICD10: M54.50 See above. - OXYCODONE-ACETAMINOPHEN 5 MG-325 MG TABLET 7. DDD (degenerative disc disease), lumbar - ICD9: 722.52, ICD10: M51.36 Lumbosacral sprain - PT consult - OXYCODONE-ACETAMINOPHEN 5 MG-325 MG TABLET 8. Acute pain of left knee - ICD9: 719.46, ICD10: M25.562 - OXYCODONE-ACETAMINOPHEN 5 MG-325 MG TABLET 9. Sprain of left knee, unspecified ligament, initial encounter - ICD9: 844.9, ICD10: S83.92XALast 5 Encounter Wt Readings: Date: Wt: 03/25/2022 88 kg (194 lb) 01/17/2022 84.8 kg (187 lb) 01/07/2022 86.2 kg (190 lb) 11/01/2021 83.9 kg (185 lb) 10/16/2021 82.6 kg (182 lb) No waist measurement recorded Estimated body mass index is 30.18 kg/m as calculated from the following: Height as of 01/07/22: 167.6 cm (5' 6 ). Weight as of this encounter: 84.8 kg (187 lb). Last 5 Encounter BP Readings: Date: BP: 03/25/2022 114/70 01/17/2022 112/64 11/01/2021 142/84 10/16/2021 124/76 09/18/2021 136/82 - OXYCODONE-ACETAMINOPHEN 5 MG-325 MG TABLET 10. Back strain, sequela - ICD9: 905.7, ICD10: S39.012S - CYCLOBENZAPRINE 10 MG TABLET Joon Reed MD documented in this encounter [facility] 11-22-2021 History of Present illness Narrative This note was created using Luxterariter. Subjective Keisha Red is a 76 year old female. Patient presents with: Recheck: 2 month follow up SUBJECTIVE: Keisha Red is a 76 year old year old lady here today for 2 month follow up appointment for review of medical conditions. Overall doing okay. Back pain with weather changes. Goes to [facility] for INRs. 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 Has not gotten COVID vaccine. Will see urologist in [place] next week. Will see eye doctor soon. Sugar was 168 today. Has symptoms when high, Was eating brownies. No symptoms with low sugar at lab in 70s. 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 Agudelo Dizziness and giddiness Muscle spasm Obesity, unspecified Palpitations Shoulder dislocation 12/06/11 Right shoulder s/p fall with reduction at [facility] Type II or unspecified type diabetes mellitus without mention of complication, not stated as uncontrolled Unspecified asthma(493.90) Unspecified essential hypertension Current Outpatient Medications Medication Sig oxyCODONE-acetaminophen (PERCOCET) 5-325 mg tablet Take 5-325 mg by mouth twice daily. As needed albuterol HFA (PROAIR HFA) 90 mcg/actuation inhaler Inhale 2 Puffs as instructed every 4 hours as needed for wheezing/shortness of breath. 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 gabapentin (NEURONTIN) 300 mg capsule Take 2 capsules by mouth daily at bedtime AND 1 capsule every morning. Do all this for 180 days. diclofenac (VOLTAREN ARTHRITIS PAIN) 1 % topical gel Apply 2 g to affected area four times daily. (Patient taking differently: Apply 2 g to affected area four times daily. Takes as needed ) metFORMIN ER (GLUCOPHAGE XR) 500 mg 24 hr tablet Take 2 tablets by mouth twice daily with meals. budesonide-formoterol (SYMBICORT) 160-4.5 mcg/actuation inhaler Inhale 2 Puffs as instructed twice daily. warfarin (COUMADIN) 5 mg tablet Take 1 tablet by mouth once daily. atorvastatin (LIPITOR) 10 mg tablet Take 1 tablet by mouth once daily. triamcinolone acetonide (KENALOG) 0.1 % cream Apply 1 application to affected area three times daily as needed. For rash on extremities and leg magnesium oxide 400 mg magnesium cap Take 400 mg by mouth once daily. blood sugar diagnostic (RELION PRIME TEST STRIPS) test strip Test glucose 1 x per day. Dx: 250.00. Insulin use: no TENS unit and electrodes cmpk 1 Each once daily. (Patient taking differently: 1 Each once daily. Patient using PRN ) TENS UNIT ELECTRODES (TENS UNITS ELECTRODES) 2X2 pads Change pad every month as indicated No current facility-administered medications for this visit. Review of Systems Objective BP (P) 134/86 (BP Site: Left Arm, BP Position: Sitting, BP Cuff Size: Large Adult) Pulse (P) 78 Resp (P) 16 Wt (P) 84.8 kg (187 lb) BMI (P) 30.18 kg/m Last 5 Encounter BP Readings: Date: BP: 11/01/2021 142/84 10/16/2021 124/76 09/18/2021 136/82 07/17/2021 122/78 06/10/2021 118/70 Last 5 Encounter Wt Readings: Date: Wt: 11/01/2021 83.9 kg (185 lb) 10/16/2021 82.6 kg (182 lb) 09/18/2021 82.7 kg (182 lb 6.4 oz) 07/17/2021 84.1 kg (185 lb 6.4 oz) 06/10/2021 85.3 kg (188 lb) Physical Exam Constitutional: Appearance: Normal appearance. She is obese. HENT: Head: Normocephalic. Eyes: Conjunctiva/sclera: Conjunctivae normal. Cardiovascular: Rate and Rhythm: Normal rate and regular rhythm. Heart sounds: Normal heart sounds. Pulmonary: Effort: Pulmonary effort is normal. Breath sounds: Normal breath sounds. Skin: General: Skin is warm and dry. Neurological: General: No focal deficit present. Mental Status: She is alert and oriented to person, place, and time. Psychiatric: Mood and Affect: Mood normal. Behavior: Behavior normal. Thought Content: Thought content normal. Judgment: Judgment normal. Component Latest Ref Rng & Units 06/10/2021 10/16/2021 Protein, Total 6.3 - 8.0 g/dL 7.2 7.7 Albumin 3.9 - 4.9 g/dL 4.3 4.5 Calcium 8.5 - 10.2 mg/dL 10.0 9.9 Bilirubin, Total 0.2 - 1.3 mg/dL 0.6 0.5 Alkaline Phosphatase 34 - 123 U/L 74 83 AST 13 - 35 U/L 22 32 Glucose 74 - 99 mg/dL 104 (H) 71 (L) BUN 7 - 21 mg/dL 17 22 (H) Creatinine 0.58 - 0.96 mg/dL 0.92 0.99 (H) Sodium 136 - 144 mmol/L 139 138 Potassium 3.7 - 5.1 mmol/L 4.3 4.1 Chloride 97 - 105 mmol/L 105 103 CO2 22 - 30 mmol/L 21 (L) 23 Anion Gap 9 - 18 mmol/L 13 12 ALT 7 - 38 U/L 15 17 eGFR- >60 >60 eGFR-All Other Races . 60 55 WBC 3.70 - 11.00 k/uL 8.30 7.42 RBC 3.90 - 5.20 m/uL 4.21 4.51 Hemoglobin 11.5 - 15.5 g/dL 13.8 14.6 Hematocrit 36.0 - 46.0 % 41.1 44.4 MCV 80.0 - 100.0 fL 97.6 98.4 MCH 26.0 - 34.0 pG 32.8 32.4 MCHC 30.5 - 36.0 g/dL 33.6 32.9 RDW-CV 11.5 - 15.0 % 12.3 12.6 Platelet Count 150 - 400 k/uL 144 (L) 156 MPV 9.0 - 12.7 fL 10.1 10.3 Absolute nRBC <0.01 k/uL <0.01 <0.01 Cholesterol, Total <200 mg/dL 159 Triglyceride <150 mg/dL 130 HDL Cholesterol >39 mg/dL 62 LDL Cholesterol <100 mg/dL 71 Non HDL Cholesterol <130 mg/dL 97 Fasting Time hrs 12 VLDL Cholesterol <30 mg/dL 26 TC:HDL Ratio <5.10 2.56 LDL:HDL Ratio <2.54 1.15 Creatinine, Ur Random (UCRR) 20 - 300 mg/dL 154.3 75.3 Albumin, Urine Random mg/L 51.8 16.6 Albumin/Creat Ratio <30 mg/g 34 (H) 22 Hemoglobin A1C 4.3 - 5.6 % 6.0 (H) 5.8 (H) Estimated Average Glucose mg/dL 126 120 Assessment and Plan ASSESSMENT/PLAN: 1. Controlled type 2 diabetes mellitus without complication, without long-term current use of insulin (HCC) - ICD9: 250.00, ICD10: E11.9 (primary diagnosis) Controlled. - Continue current medications - Encouraged regular aerobic exercise and weight loss 2. Moderate persistent asthma without complication - ICD9: 493.90, ICD10: J45.40 Continue present management.Further evaluation and treatment as indicated. 3. Anticoagulated on Coumadin - ICD9: V58.61, ICD10: Z79.01 Stable Continue present management. 4. Pacemaker - ICD9: V45.01, ICD10: Z95.0 Stable. Continue follow up with cardiology 5. Atrial flutter, unspecified type (HCC) - ICD9: 427.32, ICD10: I48.92 As noted above 6. Severe low back pain - ICD9: 724.2, ICD10: M54.50 Stable with control. Only needs a few pills to have on hand for episides of severe pain that do not respond to other treatments. At this time benefits outweigh risks. Continue to monitor for adverse effects and indications for decreasing dose or tapering off. No signs of diversion or abuse of medication(s); no adverse effects. Continue present management. - OXYCODONE-ACETAMINOPHEN 5 MG-325 MG TABLET 7. DDD (degenerative disc disease), lumbar - ICD9: 722.52, ICD10: M51.36 As above - OXYCODONE-ACETAMINOPHEN 5 MG-325 MG TABLET 8. Acute pain of left knee - ICD9: 719.46, ICD10: M25.562 As above - OXYCODONE-ACETAMINOPHEN 5 MG-325 MG TABLET 9. Sprain of left knee, unspecified ligament, initial encounter - ICD9: 844.9, ICD10: S83.92XA As above - OXYCODONE-ACETAMINOPHEN 5 MG-325 MG TABLET Joon Reed MD Medical Decision Making: Problems: Moderate: 2+ stable chronic illnesses Risk: Moderate: Drug management Medical Decision Making Level: 4 - Moderate documented in this encounter [facility] documented as of this encounter (statuses as of 02/03/2022) [facility]12-[facility]2005 History of Past illness Narrative* Problem Noted Date Resolved Date Contact dermatitis and other eczema 09/29/2005 09/16/2021 Contact dermatitis and other eczema, due to unspecified cause 09/16/2021 documented as of this encounter (statuses as of 03/31/2022) [address]05-2005 History of Past illness Narrative* Problem Noted Date Resolved Date Contact dermatitis and other eczema 09/29/2005 09/16/2021 Contact dermatitis and other eczema, due to unspecified cause 09/16/2021 documented as of this encounter (statuses as of 04/10/2022) [address]05-2005 History of Past illness Narrative* Problem Noted Date Resolved Date Contact dermatitis and other eczema 09/29/2005 09/16/2021 Contact dermatitis and other eczema, due to unspecified cause 09/16/2021 documented as of this encounter (statuses as of 04/18/2022) [facility]2005 History of Past illness Narrative* Problem Noted Date Resolved Date Contact dermatitis and other eczema 09/29/2005 09/16/2021 Contact dermatitis and other eczema, due to unspecified cause 09/16/2021 documented as of this encounter (statuses as of 05/06/2022) [facility]2005 History of Past illness Narrative* Problem Noted Date Resolved Date Contact dermatitis and other eczema 09/29/2005 09/16/2021 Contact dermatitis and other eczema, due to unspecified cause 09/16/2021 documented as of this encounter (statuses as of 05/06/2022) [facility]2005 History of Past illness Narrative* Problem Noted Date Resolved Date Contact dermatitis and other eczema 09/29/2005 09/16/2021 Contact dermatitis and other eczema, due to unspecified cause 09/16/2021 documented as of this encounter (statuses as of 05/07/2022) [facility]2005 History of Past illness Narrative* Problem Noted Date Resolved Date Contact dermatitis and other eczema 09/29/2005 09/16/2021 Contact dermatitis and other eczema, due to unspecified cause 09/16/2021 documented as of this encounter (statuses as of 05/13/2022) [place] [address]-05-2005 History of Past illness Narrative* Problem Noted Date Resolved Date Contact dermatitis and other eczema 09/29/2005 09/16/2021 Contact dermatitis and other eczema, due to unspecified cause 09/16/2021 documented as of this encounter (statuses as of 06/17/2022) [address]05[address]2005 History of Past illness Narrative* Problem Noted Date Resolved Date Contact dermatitis and other eczema 09/29/2005 09/16/2021 Contact dermatitis and other eczema, due to unspecified cause 09/16/2021 documented as of this encounter (statuses as of 07/28/2022) [address]2005 History of Past illness Narrative* Problem Noted Date Resolved Date Contact dermatitis and other eczema 09/29/2005 09/16/2021 Contact dermatitis and other eczema, due to unspecified cause 09/16/2021 documented as of this encounter (statuses as of 08/21/2022) [facility]2005 History of Past illness Narrative* Problem Noted Date Resolved Date Contact dermatitis and other eczema 09/29/2005 09/16/2021 Contact dermatitis and other eczema, due to unspecified cause 09/16/2021 documented as of this encounter (statuses as of 09/16/2022) [facility] History of Past illness Narrative* Problem Noted Date Resolved Date Contact dermatitis and other eczema 09/29/2005 09/16/2021 Contact dermatitis and other eczema, due to unspecified cause 09/16/2021 documented as of this encounter (statuses as of 11/20/2022) [facility] History of Past illness Narrative* Problem Noted Date Resolved Date Contact dermatitis and other eczema 09/29/2005 09/16/2021 Contact dermatitis and other eczema, due to unspecified cause 09/16/2021 documented as of this encounter (statuses as of 12/04/2022) [facility] History of Past illness Narrative* Problem Noted Date Resolved Date Contact dermatitis and other eczema 09/29/2005 09/16/2021 Contact dermatitis and other eczema, due to unspecified cause 09/16/2021 documented as of this encounter (statuses as of 12/04/2022) [facility] History of Past illness Narrative* Problem Noted Date Resolved Date Contact dermatitis and other eczema 09/29/2005 09/16/2021 Contact dermatitis and other eczema, due to unspecified cause 09/16/2021 documented as of this encounter (statuses as of 12/26/2022) [address]2005 History of Past illness Narrative* Problem Noted Date Resolved Date Contact dermatitis and other eczema 09/29/2005 09/16/2021 Contact dermatitis and other eczema, due to unspecified cause 09/16/2021 documented as of this encounter (statuses as of 01/26/2023) [address]2005 History of Past illness Narrative* Problem Noted Date Resolved Date Contact dermatitis and other eczema 09/29/2005 09/16/2021 Contact dermatitis and other eczema, due to unspecified cause 09/16/2021 documented as of this encounter (statuses as of 03/27/2023) [address]2005 History of Past illness Narrative* Problem Noted Date Resolved Date Contact dermatitis and other eczema 09/29/2005 09/16/2021 Contact dermatitis and other eczema, due to unspecified cause 09/16/2021 documented as of this encounter (statuses as of 03/31/2023) [address]2005 History of Past illness Narrative* Problem Noted Date Resolved Date Contact dermatitis and other eczema 09/29/2005 09/16/2021 Contact dermatitis and other eczema, due to unspecified cause 09/16/2021 documented as of this encounter (statuses as of 04/16/2023) [facility]2005 History of Past illness Narrative* Problem Noted Date Resolved Date Contact dermatitis and other eczema 09/29/2005 09/16/2021 Contact dermatitis and other eczema, due to unspecified cause 09/16/2021 documented as of this encounter (statuses as of 04/16/2023) [facility]2005 History of Past illness Narrative* Problem Noted Date Diagnosed Date Resolved Date Contact dermatitis and other eczema 09/29/2005 09/16/2021 Contact dermatitis and other eczema, due to unspecified cause 09/16/2021 documented as of this encounter (statuses as of 05/04/2023) [address]2005 History of Past illness Narrative* Problem Noted Date Diagnosed Date Resolved Date Contact dermatitis and other eczema 09/29/2005 09/16/2021 Contact dermatitis and other eczema, due to unspecified cause 09/16/2021 documented as of this encounter (statuses as of 05/12/2023) [place] [address]05-2005 History of Past illness Narrative* Problem Noted Date Diagnosed Date Resolved Date Contact dermatitis and other eczema 09/29/2005 09/16/2021 Contact dermatitis and other eczema, due to unspecified cause 09/16/2021 documented as of this encounter (statuses as of 06/03/2023) [facility]2005 History of Past illness Narrative* Problem Noted Date Diagnosed Date Resolved Date Contact dermatitis and other eczema 09/29/2005 09/16/2021 Contact dermatitis and other eczema, due to unspecified cause 09/16/2021 documented as of this encounter (statuses as of 06/23/2023) [address]2005 History of Past illness Narrative* Problem Noted Date Diagnosed Date Resolved Date Contact dermatitis and other eczema 09/29/2005 09/16/2021 Contact dermatitis and other eczema, due to unspecified cause 09/16/2021 documented as of this encounter (statuses as of 07/15/2023) [facility]2005 History of Past illness Narrative* Problem Noted Date Diagnosed Date Resolved Date Contact dermatitis and other eczema 09/29/2005 09/16/2021 Contact dermatitis and other eczema, due to unspecified cause 09/16/2021 documented as of this encounter (statuses as of 07/17/2023) [facility]2005 History of Past illness Narrative* Problem Noted Date Diagnosed Date Resolved Date Contact dermatitis and other eczema 09/29/2005 09/16/2021 Contact dermatitis and other eczema, due to unspecified cause 09/16/2021 documented as of this encounter (statuses as of 09/10/2023) [facility] History of Past illness Narrative* Problem Noted Date Diagnosed Date Resolved Date Contact dermatitis and other eczema 09/29/2005 09/16/2021 Contact dermatitis and other eczema, due to unspecified cause 09/16/2021 documented as of this encounter (statuses as of 09/18/2023) [facility]2005 History of Past illness Narrative* Problem Noted Date Diagnosed Date Resolved Date Contact dermatitis and other eczema 09/29/2005 09/16/2021 Obesity, unspecified 023 Last Assessment & Plan: Assessment: Body mass index is 30.11 kg/m . Contact dermatitis and other eczema, due to unspecified cause 09/16/2021 Dizziness and giddiness 08/27 documented as of this encounter (statuses as of 09/23/2023) [facility]2005 History of Past illness Narrative* Problem Noted Date Diagnosed Date Resolved Date Contact dermatitis and other eczema 09/29/2005 09/16/2021 Obesity, unspecified 023 Last Assessment & Plan: Assessment: Body mass index is 30.11 kg/m . Contact dermatitis and other eczema, due to unspecified cause 09/16/2021 Dizziness and giddiness 08/27 documented as of this encounter (statuses as of 09/30/2023) [facility] Controlled type 2 diabetes mellitus without complication, without long-term current use of insulin (HCC)- Primary Moderate persistent asthma without complication Unspecified asthma Anticoagulated on Coumadin Encounter for therapeutic drug monitoring Pacemaker Cardiac pacemaker in situ Atrial flutter, unspecified type (HCC) Severe low back pain Lumbago DDD (degenerative disc disease), lumbar Degeneration of lumbar or lumbosacral intervertebral disc Acute pain of left knee Sprain of left knee, unspecified ligament, initial encounter documented in this encounter [facility] note* Diagnosis Controlled type 2 diabetes mellitus without complication, without long-term current use of insulin (HCC)- Primary Essential hypertension Unspecified essential hypertension Mild intermittent asthma without complication Unspecified asthma Anticoagulated on Coumadin Encounter for therapeutic drug monitoring Encounter for long-term current use of medication Atrial flutter, unspecified type (HCC) Severe low back pain Lumbago DDD (degenerative disc disease), lumbar Degeneration of lumbar or lumbosacral intervertebral disc Acute pain of left knee Sprain of left knee, unspecified ligament, initial encounter documented in this encounter [facility] note* Diagnosis Diabetes mellitus type 2, controlled, without complications (HCC)- Primary Type II or unspecified type diabetes mellitus without mention of complication, not stated as uncontrolled Essential hypertension Unspecified essential hypertension Moderate persistent asthma without complication Unspecified asthma Colon cancer screening Special screening for malignant neoplasms, colon Eczema, unspecified type Severe low back pain Lumbago DDD (degenerative disc disease), lumbar Degeneration of lumbar or lumbosacral intervertebral disc Acute pain of left knee Sprain of left knee, unspecified ligament, initial encounter Back strain, sequela [facility] Diagnosis Controlled type 2 diabetes mellitus without complication, without long-term current use of insulin (HCC) [facility] Diagnosis Mild intermittent asthma with acute exacerbation- Primary Unspecified asthma, with exacerbation Viral upper respiratory tract infection Acute upper respiratory infections of unspecified site [facility] Diagnosis COVID-19 virus infection- Primary Diarrhea of infectious origin Diarrhea of presumed infectious origin Severe low back pain Lumbago DDD (degenerative disc disease), lumbar Degeneration of lumbar or lumbosacral intervertebral disc Acute pain of left knee Sprain of left knee, unspecified ligament, initial encounter [facility] Diagnosis DDD (degenerative disc disease), lumbar Degeneration of lumbar or lumbosacral intervertebral disc Acute pain of left knee Sprain of left knee, unspecified ligament, initial encounter Severe low back pain Lumbago [facility] Diagnosis Urinary frequency- Primary [facility] Diagnosis Controlled type 2 diabetes mellitus without complication, without long-term current use of insulin (HCC)- Primary Severe low back pain Lumbago Back strain, sequela DDD (degenerative disc disease), lumbar Degeneration of lumbar or lumbosacral intervertebral disc Primary hypertension Unspecified essential hypertension Mixed hyperlipidemia Class 1 obesity due to excess calories with body mass index (BMI) of 32.0 to 32.9 in adult, unspecified whether serious comorbidity present Sprain of left knee, unspecified ligament, initial encounter Acute pain of left knee Anticoagulated on Coumadin Encounter for therapeutic drug monitoring Colon cancer screening Special screening for malignant neoplasms, colon [facility] Diagnosis Strain of neck muscle, initial encounter- Primary Severe low back pain Lumbago DDD (degenerative disc disease), lumbar Degeneration of lumbar or lumbosacral intervertebral disc Encounter for therapeutic drug monitoring [facility] Diagnosis Back strain, subsequent encounter- Primary Mild intermittent asthma without complication Unspecified asthma Muscle spasm Spasm of muscle Back strain, sequela Severe low back pain Lumbago DDD (degenerative disc disease), lumbar Degeneration of lumbar or lumbosacral intervertebral disc Encounter for immunization Need for other specified prophylactic vaccination against single bacterial disease Screening for diabetic retinopathy Screening for other eye conditions Controlled type 2 diabetes mellitus without complication, without long-term current use of insulin (HCC) [facility] Controlled type 2 diabetes mellitus without complication, without long-term current use of insulin (HCC)- Primary Urinary tract infection without hematuria, site unspecified Strain of neck muscle, subsequent encounter Primary hypertension Unspecified essential hypertension Contusion of left hip, subsequent encounter Mixed hyperlipidemia Atrial flutter, unspecified type (HCC) Pacemaker Cardiac pacemaker in situ Essential hypertension Unspecified essential hypertension Mild intermittent asthma without complication Unspecified asthma RAMESH (obstructive sleep apnea) Obstructive sleep apnea (adult) (pediatric) 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 Unspecified congenital obstructive defect of renal pelvis and ureter Anticoagulated on Coumadin Encounter for therapeutic drug monitoring Pulmonary hypertension (HCC) Other chronic pulmonary heart diseases [facility] Cellulitis of foot- Primary Cellulitis and abscess of foot, except toes Partial thickness burn of left foot, subsequent encounter Controlled type 2 diabetes mellitus without complication, without long-term current use of insulin (HCC) [facility] Diagnosis Back strain, sequela Severe low back pain Lumbago DDD (degenerative disc disease), lumbar Degeneration of lumbar or lumbosacral intervertebral disc [facility] Diagnosis Diabetes mellitus with no complication (HCC)- Primary Type II or unspecified type diabetes mellitus without mention of complication, not stated as uncontrolled [facility] Diagnosis DDD (degenerative disc disease), lumbar Degeneration of lumbar or lumbosacral intervertebral disc Back Strain, recurrent Sprain of unspecified site of back [facility] Diagnosis Mild intermittent asthma without complication Unspecified asthma [facility] Diagnosis Severe low back pain- Primary Lumbago DDD (degenerative disc disease), lumbar Degeneration of lumbar or lumbosacral intervertebral disc Atrial flutter, unspecified type (HCC) Essential hypertension Unspecified essential hypertension 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 Anticoagulated on Coumadin Encounter for therapeutic drug monitoring Obesity, Class I, BMI 30-34.9 Obesity, unspecified Controlled type 2 diabetes mellitus without complication, without long-term current use of insulin (HCC) documented in this encounter [facility] Summary Purpose Family History No Family History Records FoundNo Family History Records Found Advance Directives No Advanced Directives Records FoundDocuments on File Type Date Recorded Patient 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 Expl anation Advance Directive(s) 01/23/2021 8:35 AM Advance Directive(s) 01/11/2021 11:10 AM Reason for Referral Specialty Diagnoses / Procedures Referred By Aminata marie Referred To Contact Diagnoses Back strain, sequela Joon Reed MD [address] [place] [address] Referral ID Status Reason Start Date Expiration Date V isits Requested Visits Authorized [id number] Authorized 12/12/2022 12/27/2023 1 1 Specialty Diagnoses / Procedures Referred By Aminata marie Referred To Contact [facility] Diagnoses Back strain, subsequent encounter Muscle spasm Back strain, sequela Procedures CONSULT TO PHYSICAL THERAPY PHYSICAL THERAPY EVALUATION HIGH COMPLEX 45 MINS Nicolle Tang, INTERMEDIATE PROJECT MANAGER.CANCELING AND CUTTING CONTROL CLERK [address] [place] [address] [facility] [place] [address] [place] [address] Referral ID Status Reason Start Date Expiration Date Visits Requested Visits Authorized [id number] Pending Review Auto-Generat ed Referral 04/16/2023 04/15/2024 1 1 Specialty Diagnoses / Procedures Referred By Aminata marie Ref[facility] To Contact [facility] Diagnoses Mild intermittent asthma without complication Procedures SPIROMETRY - BASELINE AND POST DILATOR BRNCDILAT RSPSE SPMTRY PRE&POST-BRNCDILAT ADMN Nicolle Tang, INTERMEDIATE PROJECT MANAGER.CANCELING AND CUTTING CONTROL CLERK [address] [place] [address] [facility] [place] [address] [place] [address] Referral ID Status Reason Start Date Expiration Date Visits Requested Visits Authorized [id number] Pending Review Auto-Generat ed Referral 04/16/2023 05/15/2024 1 1 Specialty Diagnoses / Procedures Referred By Aminata marie Referred To Contact Podiatry Diagnoses Cellulitis of foot Partial thickness burn of left foot, subsequent encounter Controlled type 2 diabetes mellitus without complication, without long-term current use of insulin (HCC) Procedures CONSULT TO PODIATRY OFFICE/OUTPATIENT [facility] 60-74 MINUTES Whitney Garcia APRN.[employer] [address] [place] [address] Referral ID Status Reason Start Date Expiration Date Visits Requested Visits Authorized [id number] Authorized PCP Requested Referral 05/12/2023 05/11/2024 1 1 Additional Source Comments INFORMATION SOURCE (unrecogn ized section and content) DATE CREATED AUTHOR AUTHOR'S ORGANIZ ATION 11/11/2023 [facility] Source Comments (unrecognize d section and content) In the event this informatio n is protected by the Federal Confidentiality of Alcohol and Drug Abuse Patient Records regulations: The Federal rules restrict any use of the information to criminally investigate or prosecute any alcohol or drug abuse patient.[facility] the event this information is protected by the Federal Confidentiality of Alcohol and Drug Abuse Patient Records regulations: The Federal rules restrict any use of the information to criminally investigate or prosecute any alcohol or drug abuse patient.[facility] CenterIn the event this information is protected by the Federal Confidentiality of Alcohol and Drug Abuse Patient Records regulations: The Federal rules restrict any use of the information to criminally investigate or prosecute any alcohol or drug abuse patient.[facility] CenterIn the event this information is protected by the Federal Confidentiality of Alcohol and Drug Abuse Patient Records regulations: The Federal rules restrict any use of the information to criminally investigate or prosecute any alcohol or drug abuse patient.[facility] CenterIn the event this information is protected by the Federal Confidentiality of Alcohol and Drug Abuse Patient Records regulations: The Federal rules restrict any use of the information to criminally investigate or prosecute any alcohol or drug abuse patient.[facility] CenterIn the event this information is protected by the Federal Confidentiality of Alcohol and Drug Abuse Patient Records regulations: The Federal rules restrict any use of the information to criminally investigate or prosecute any alcohol or drug abuse patient.[facility] CenterIn the event this information is protected by the Federal Confidentiality of Alcohol and Drug Abuse Patient Records regulations: The Federal rules restrict any use of the information to criminally investigate or prosecute any alcohol or drug abuse patient.[facility] CenterIn the event this information is protected by the Federal Confidentiality of Alcohol and Drug Abuse Patient Records regulations: The Federal rules restrict any use of the information to criminally investigate or prosecute any alcohol or drug abuse patient.[facility] CenterIn the event this information is protected by the Federal Confidentiality of Alcohol and Drug Abuse Patient Records regulations: The Federal rules restrict any use of the information to criminally investigate or prosecute any alcohol or drug abuse patient.[facility] CenterIn the event this information is protected by the Federal Confidentiality of Alcohol and Drug Abuse Patient Records regulations: The Federal rules restrict any use of the information to criminally investigate or prosecute any alcohol or drug abuse patient.[facility] CenterIn the event this information is protected by the Federal Confidentiality of Alcohol and Drug Abuse Patient Records regulations: The Federal rules restrict any use of the information to criminally investigate or prosecute any alcohol or drug abuse patient.[facility] CenterIn the event this information is protected by the Federal Confidentiality of Alcohol and Drug Abuse Patient Records regulations: The Federal rules restrict any use of the information to criminally investigate or prosecute any alcohol or drug abuse patient.[facility] CenterIn the event this information is protected by the Federal Confidentiality of Alcohol and Drug Abuse Patient Records regulations: The Federal rules restrict any use of the information to criminally investigate or prosecute any alcohol or drug abuse patient.[facility] CenterIn the event this information is protected by the Federal Confidentiality of Alcohol and Drug Abuse Patient Records regulations: The Federal rules restrict any use of the information to criminally investigate or prosecute any alcohol or drug abuse patient.[facility] CenterIn the event this information is protected by the Federal Confidentiality of Alcohol and Drug Abuse Patient Records regulations: The Federal rules restrict any use of the information to criminally investigate or prosecute any alcohol or drug abuse patient.[facility] CenterIn the event this information is protected by the Federal Confidentiality of Alcohol and Drug Abuse Patient Records regulations: The Federal rules restrict any use of the information to criminally investigate or prosecute any alcohol or drug abuse patient.[facility] CenterIn the event this information is protected by the Federal Confidentiality of Alcohol and Drug Abuse Patient Records regulations: The Federal rules restrict any use of the information to criminally investigate or prosecute any alcohol or drug abuse patient.[facility] CenterIn the event this information is protected by the Federal Confidentiality of Alcohol and Drug Abuse Patient Records regulations: The Federal rules restrict any use of the information to criminally investigate or prosecute any alcohol or drug abuse patient.[facility] CenterIn the event this information is protected by the Federal Confidentiality of Alcohol and Drug Abuse Patient Records regulations: The Federal rules restrict any use of the information to criminally investigate or prosecute any alcohol or drug abuse patient.[facility] CenterIn the event this information is protected by the Federal Confidentiality of Alcohol and Drug Abuse Patient Records regulations: The Federal rules restrict any use of the information to criminally investigate or prosecute any alcohol or drug abuse patient.[facility] CenterIn the event this information is protected by the Federal Confidentiality of Alcohol and Drug Abuse Patient Records regulations: The Federal rules restrict any use of the information to criminally investigate or prosecute any alcohol or drug abuse patient.[facility] CenterIn the event this information is protected by the Federal Confidentiality of Alcohol and Drug Abuse Patient Records regulations: The Federal rules restrict any use of the information to criminally investigate or prosecute any alcohol or drug abuse patient.[facility] CenterIn the event this information is protected by the Federal Confidentiality of Alcohol and Drug Abuse Patient Records regulations: The Federal rules restrict any use of the information to criminally investigate or prosecute any alcohol or drug abuse patient.[facility] CenterIn the event this information is protected by the Federal Confidentiality of Alcohol and Drug Abuse Patient Records regulations: The Federal rules restrict any use of the information to criminally investigate or prosecute any alcohol or drug abuse patient.[facility] CenterIn the event this information is protected by the Federal Confidentiality of Alcohol and Drug Abuse Patient Records regulations: The Federal rules restrict any use of the information to criminally investigate or prosecute any alcohol or drug abuse patient.[facility] CenterIn the event this information is protected by the Federal Confidentiality of Alcohol and Drug Abuse Patient Records regulations: The Federal rules restrict any use of the information to criminally investigate or prosecute any alcohol or drug abuse patient.[facility] CenterIn the event this information is protected by the Federal Confidentiality of Alcohol and Drug Abuse Patient Records regulations: The Federal rules restrict any use of the information to criminally investigate or prosecute any alcohol or drug abuse patient.[facility] CenterIn the event this information is protected by the Federal Confidentiality of Alcohol and Drug Abuse Patient Records regulations: The Federal rules restrict any use of the information to criminally investigate or prosecute any alcohol or drug abuse patient.[facility] CenterIn the event this information is protected by the Federal Confidentiality of Alcohol and Drug Abuse Patient Records regulations: The Federal rules restrict any use of the information to criminally investigate or prosecute any alcohol or drug abuse patient.[facility] CenterIn the event this information is protected by the Federal Confidentiality of Alcohol and Drug Abuse Patient Records regulations: The Federal rules restrict any use of the information to criminally investigate or prosecute any alcohol or drug abuse patient.[facility] CenterIn the event this information is protected by the Federal Confidentiality of Alcohol and Drug Abuse Patient Records regulations: The Federal rules restrict any use of the information to criminally investigate or prosecute any alcohol or drug abuse patient.[facility] CenterIn the event this information is protected by the Federal Confidentiality of Alcohol and Drug Abuse Patient Records regulations: The Federal rules restrict any use of the information to criminally investigate or prosecute any alcohol or drug abuse patient.[facility] Reason for Visit (unrecogniz ed section and content) Reason Comments Follow Up Reason Onset Date Comments Refill Request 04/18/2022 SEE RX NOTES Reason Comments Future Appointment 05-06-22 Reason Comments Shortness of Breath x 3 days Cough x 3 days, no fever/h eadache/sore throat Reason Comments Results (radiology) CXR Results Reason Comments Results Reason Comments Confusion Reason Comments Future Appointment Reason Comments Hospital F/U Reason Onset Date Comments Refill Request 09/15/2022 Reason Comments Refill Request Reason Comments Patient Update Reason Comments Urinary Frequency With pressure x last night Reason Comments Insurance Authorization Reason Comments F/U 3 Month Reason Onset Date Comments Refill Request 03/26/2023 Reason Comments Neck Pain right posterior neck for about 3 months Reason Comments Back Pain Reason Comments Chest Heaviness Reason Comments F/U 3 Month Reason Comments Wound Check 05/02/2023 left foot burn from a plate of hot chicken sliding of plate 2 week ago seen in [facility] ER on 05/09/23.Was treated with cephalexin 500mg every 6 hours. 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 Relationship Specialty Start Date End Date Joon Reed MD [address] [place] [address] [place] [address] PCP - General 08/18/02 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 Relationship Specialty Start Date End Date Joon Reed MD [address] [place] [address] [place] [address] PCP - General 08/18/02 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 Relationship Specialty Start Date End Date Joon Reed MD [address] [place] [address], [place] [address] PCP - General 08/18/02 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 Relationship Specialty Start Date End Date Joon Reed MD [address] [place] [address], [place] [address] PCP - General 08/18/02 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 Relationship Specialty Start Date End Date Joon Reed MD [address] [place] [address], [place] [address] PCP - General 08/18/02 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 Relationship Specialty Start Date End Date Joon Reed MD [address] [place] [address], [place] [address] PCP - General 08/18/02 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 Relationship Specialty Start Date End Date Joon Reed MD [address] [place] [address], [place] [address] PCP - General 08/18/02 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 Relationship Specialty Start Date End Date Joon Reed MD [address] [place] [address], [place] [address] PCP - General 08/18/02 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 Relationship Specialty Start Date End Date Joon Reed MD [address] [place] [address], [place] [address] PCP - General 08/18/02 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 Relationship Specialty Start Date End Date Joon Reed MD [address] [place] [address], [place] [address] PCP - General 08/18/02 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 Relationship Specialty Start Date End Date Joon Reed MD [address] [place] [address], [place] [address] PCP - General 08/18/02 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 Relationship Specialty Start Date End Date Joon Reed MD [address] [place] [address], [place] [address] PCP - General 08/18/02 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 Relationship Specialty Start Date End Date Joon Reed MD [address] [place] [address], [place] [address] PCP - General 08/18/02 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 Relationship Specialty Start Date End Date Joon Reed MD [address] [place] [address], [place] [address] PCP - General 08/18/02 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 Relationship Specialty Start Date End Date Joon Reed MD [address] [place] [address], [place] [address] PCP - General 08/18/02 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 Relationship Specialty Start Date End Date Joon Reed MD [address] [place] [address], [place] [address] PCP - General 08/18/02 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 Relationship Specialty Start Date End Date Joon Reed MD [address] [place] [address] PCP - General 08/18/02 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 Relationship Specialty Start Date End Date Joon Reed MD [address] [place] [address] PCP - General 08/18/02 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 Relationship Specialty Start Date End Date Joon Reed MD [address] [place] [address] PCP - General 08/18/02 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 Relationship Specialty Start Date End Date Joon Reed MD [address] [place] [address] PCP - General 08/18/02 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 Relationship Specialty Start Date End Date Joon Reed MD [address] [place] [address] PCP - General 08/18/02 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 Relationship Specialty Start Date End Date Joon Reed MD [address] [place] [address] PCP - General 08/18/02 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 Relationship Specialty Start Date End Date Joon Reed MD [address] [place] [address] PCP - General 08/18/02 FOR RECORDS PERTAINING TO PATIENTS WHO ARE OR HAVE BEEN ENROLLED IN A CHEMICAL DEPENDENCY/SUBSTANCEABUSE PROGRAM, SOME INFORMATION MAY BE OMITTED. This clinical summary was aggregated from multiple sources. Caution should be exercised in using it in the provision of clinical care. This summary normalizes information from multiple sources, and as a consequence, information in this document may materially change the coding, format and clinical context of patient data. In addition, data may be omitted in some cases. CLINICAL DECISIONS SHOULD BE BASED ON THE PRIMARY CLINICAL RECORDS. [facility] [facility]. provides no warranty or guarantee of the accuracy or completeness of information in this document.
[2023-11-28] MEDS: Morphine 4 MG/ML Syringe IM (23:37)
[2023-11-28 23:41] VITALS: BP 136/66; PULSE 64; RESP 15; O2SAT 99
--- NOTE | 2023-11-29 08:26 | EDS_ITS ---
HPI History of Present Illness Chief Complaint: Back Narrative Narrative: 78-year-old female presenting with right-sided back pain. Patient states she has had this intermittently for a long time. She has chronic back pain. She notes today she was having a lot of spasming and it was not improving. Patient denies any urinary complaints. Denies history of kidney stone. No history of trauma. No loss of bladder or bowel control. No saddle anesthesia. Patient has been using her TENS unit today. She states this is usually helpful. She also took oxycodone today which she would normally take. Denies any abdominal pain, nausea, vomiting. Denies constipation or diarrhea. 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 Obesity RAMESH (obstructive sleep apnea) Other secondary pulmonary hypertension Palpitations Pneumonia Shoulder dislocation Home Medications warfarin 5 mg tablet 5 mg PO DAILY blood thinner 11/18/18 [History Last Taken 06/15/22] atorvastatin 10 mg tablet 10 mg PO QHS cholesterol 12/11/19 [History Last Taken 06/15/22] TENS unit electrodes #2 ea 07/11/20 [History Last Taken Unknown] oxycodone-acetaminophen 5 mg-325 mg tablet 1 tab PO Q8H PRN pain 12/07/20 [History Last Taken 06/15/22] cyclobenzaprine 10 mg tablet 5 - 10 mg PO BID PRN Spasms 06/17/22 [History Last Taken 06/16/22] magnesium oxide 400 mg PO DAILY supplement 06/17/22 [History Last Taken 06/16/22] metformin 500 mg tablet,extended release 24 hr 1,000 mg PO BID DM 06/17/22 [History Last Taken 06/16/22] gabapentin 300 mg capsule 300 mg PO BREAKFAST nerve pain 08/04/22 [History Last Taken Unknown] gabapentin 300 mg capsule 600 mg PO QHS Neuropathy 08/04/22 [History Last Taken Unknown] albuterol sulfate 90 mcg/actuation aerosol inhaler 2 puff inhalation Q4H PRN shortness of breath or wheezing #8.5 grams 11/26/23 [Rx Last Taken Unknown] budesonide-formoterol HFA 160 mcg-4.5 mcg/actuation aerosol inhaler (Symbicort) 2 puff inhalation BID asthma #10.2 grams 11/26/23 [Rx Last Taken Unknown] cyclobenzaprine 10 mg tablet 10 mg PO TID PRN Muscle Spasm #20 TABLETS 11/28/23 [Rx Last Taken Unknown] Allergy/AdvReac Type Severity Reaction Status Date / Time amoxicillin Allergy Severe Hives Verified 11/28/23 22:45 aspirin Allergy Severe Hives, SOB Verified 11/28/23 22:45 Sulfa (Sulfonamide Allergy Severe Hives Verified 11/28/23 22:45 Antibiotics) Family History Mother Diabetes Father CAD (coronary artery disease) Sister Lung cancer Son Kidney stone Surgical History History of appendectomy History of kidney surgery Presence of permanent cardiac pacemaker (04/01/19) Social History household members: none housing: house number of children: 3 current occupational status: retired Smoking Status: Never smoker alcohol intake: never substance use type: does not use what type of physical activity do you participate in: none do you feel safe at home: Yes ROS ROS ED Constitutional Constitutional ED: Denies chills, fever(s) or sweats Eyes Eyes: Denies blurry vision or change in vision ENT ENT ED: Denies ear pain or sore throat Cardiovascular Cardiovascular: Denies chest pain, palpitations or racing heartbeat Respiratory/Chest Respiratory/Chest: Denies cough, dyspnea or sputum Gastrointestinal Gastrointestinal: Denies abdominal pain, constipation, diarrhea, nausea or vomiting Genitourinary Genitourinary ED: Denies dysuria, hematuria or urinary frequency Musculoskeletal Musculoskeletal: Reports back pain and other; Denies arthralgias, myalgias or neck pain Integumentary Denies abscess, Abrasions or rash Neurologic Neurologic: Denies headache(s), paresthesias or weakness Psychiatric Psychiatric: Denies anxiety, depression, suicidal ideation or suicidal thoughts Endocrine Endocrinology: Denies polydipsia or polyuria EXAM Physical Exam Const Vital Signs: 11/28/23 22:45 11/28/23 23:41 Temperature 98.6 F Temperature Source Oral Pulse Rate 64 64 Respiratory Rate 12 15 Blood Pressure 139/83 H 136/66 H Blood Pressure Mean 101 89 Pulse Ox 98 99 Oxygen Delivery Method Room Air Positive well nourished General Appearance ED: NAD HEENT Reports moist mucous membranes Resp normal respiratory effort Cardio regular rate and regular rhythm GI normal to inspection, nondistended, normoactive bowel sounds Back/Spine Back/Spine Narrative: No midline spinal deformity, step-off of the thoracic, lumbar spine. No rashes, ecchymosis. No focal tenderness on examination. No CVA tenderness bilaterally. Pain is elicited with range of motion as and sitting up or laying back as well as twisting the trunk. Extremity normal to inspection Neuro oriented x3 Sensorium / Orientation: alert Psych mental status grossly normal MDM MDM MDM Narrative Medical decision making narrative: Patient seen and evaluated on arrival. Vital signs stable she is afebrile. She states she took oxycodone prior to coming in she states is starting to help although her pain is not completely gone. Her spasms have been under control with her TENS unit in place. She was given IM morphine for symptomatic control. She request cyclobenzaprine for home as she has had this in the past and did help. We did discuss doing lab work to see if she is dehydrated or if there is other electro abnormalities however the patient states she does not need this currently. I recommend that she increase her fluid intake as she states she drinks a bottle of water a day. This could be contributing to muscle spasms. This was discussed with her at length. Return precautions were given. Impression: 1. Back pain 2. Muscle spasms Lab Data Attestation: I reviewed the patient's lab results. Discharge Plan Triage Chief Complaint: Back ED Provider: Juan Carlos Torre Dx/Rx/DC Orders Instructions: ED Back Pain (Acute or Chronic) Prescriptions: New cyclobenzaprine 10 mg tablet 10 mg PO TID PRN (Reason: Muscle Spasm) Qty: 20 0RF No Action oxycodone-acetaminophen 5-325 mg tablet 1 tab PO Q8H PRN (Reason: pain) (DME) TENS unit electrodes Pad See Rx Instructions .ROUTE .MEDSUPPLY Qty: 2 Rx Instructions: As directed Symbicort 160-4.5 mcg/actuation HFA aerosol inhaler 2 puff INHALATION BID Qty: 10.2 11RF albuterol sulfate 90 mcg/actuation HFA aerosol inhaler 2 puff INHALATION Q4H PRN (Reason: shortness of breath or wheezing) Qty: 8.5 6RF Rx Instructions: administer with spacer warfarin 5 MG tablet 5 mg PO DAILY Protocol: Dose Management Condition: Thursday Dose/Route: 2.5 mg Instruction: 0.5 x 5 mg tablets Condition: Thursday Dose/Route: 5 mg Instruction: 1 x 5 mg tablet Condition: Thursday Dose/Route: 5 mg Instruction: 1 x 5 mg tablet Condition: Thursday Dose/Route: 5 mg Instruction: 1 x 5 mg tablet Condition: Dose/Route: 5 mg Instruction: 1 x 5 mg tablet Condition: Thursday Dose/Route: 2.5 mg Instruction: 0.5 x 5 mg tablets Condition: Thursday Dose/Route: 2.5 mg Instruction: 0.5 x 5 mg tablets Protocol Text: Adjustment Start Date: Thursday07/10/23 INR Value: 2.3 INR Date: 07/10/23 Recheck Date: 07/31/23 Rx Instructions: 5 mg. , , THU atorvastatin 10 MG tablet 10 mg PO QHS gabapentin 300 mg capsule 600 mg PO QHS cyclobenzaprine 10 mg Tablet 5 - 10 mg PO BID PRN (Reason: Spasms) metformin 500 mg tablet extended release 24 hr 1,000 mg PO BID Patient Comments: Take 2 tablets by mouth twice daily with meals. magnesium oxide 400 mg magnesium Tablet 400 mg PO DAILY gabapentin 300 mg capsule 300 mg PO BREAKFAST Patient Comments: Take 2 capsules by mouth daily at bedtime AND 1 capsule every morning. Rx Instructions: 300 mg orally; Primary Care Provider: Ro Reed Referrals: Ro Reed MD [Primary Care Provider] - Disposition Disposition: Home, Self Care Discharge Date/Time: 11/28/23 23:45
== END 2023-11-28 23:45 | disposition home or self-care (01) ==
PROVIDERS: Emergency Provider Student in an Organized Health Care Education/Training Program; PCP Internal Medicine; Visit Provider Student in an Organized Health Care Education/Training Program
DX: M54.9 Dorsalgia, unspecified (principal); M62.838 Other muscle spasm; G89.29 Other chronic pain; G47.33 Obstructive sleep apnea (adult) (pediatric); Z86.16 Personal history of COVID-19; Z95.0 Presence of cardiac pacemaker
CPT/HCPCS: 96372; 99282

== ENCOUNTER → 2023-12-02 | Outpatient (CLI) | payer MEDICARE, SELFPAY ==
[2023-12-02 12:43] VITALS: PULSE 89; PULSE 90; PULSE 91; PULSE 93; PULSE 94; O2SAT 96; O2SAT 97; O2SAT 98; O2SAT 99
--- OUTSIDE RECORDS SUMMARY | 2023-12-02 17:01 | XMS RPT_ITS | CCD ---
Author Name Unknown Address [address] [place] [address] Organization [facility] Care Team Providers Care Dethistler Operator Name Role Phone Clarisse Wilder LPN Unavailable [...] sources) amoxicillin; 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: [AMOXICILLIN] Drug Allergy 5 [facility] Work Phone: (20 sources) aspirin; 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: [ASPIRIN] Drug Allergy 9 Hives; SOB [place] [facility] Work Phone: (2 sources) sulfaSALAzine Drug Allergy [address] [facility] Work Phone: [phone] (4 sources) PROAIR RESPICLICK; 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: [PROAIR RESPICLICK] allergy to substance 6 [facility] Work Phone: (20 sources) Sulfonamides (Antibiotic); 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: [SULFA (SULFONAMIDE ANTIBIOTICS)] [facility] (1 source) tiZANidine; 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: [TIZANIDINE] Drug Allergy 3 [facility] Repository Medications Current Medications Medication Drug Class(es) [...] tab twice daily as needed HYDROCODONE-ACETAM INOPHEN [id number] Clarisse Hodges Richardson [id number] 200 actuat albuterol 0.09 mg/actuat metered dose inhaler (20 sources) beta2-Adrenergic Agonist Start: 05-24-2023 End: 09-18-2023 take 2 puff(s) by inhalation every four hours as needed for wheezing albuterol HFA (PROAIR HFA) 90 mcg/actuation inhaler Indications: Mild intermittent asthma without complication Inhale 2 Puffs as instructed every 4 hours as needed for wheezing/shortness of breath. 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) 1 Each 3 09/18/2023 Active [...] (6 sources) Patient encounter status; 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: [Other [place] (current) drug therapy] Episodic Other connective tissue [...] Unclassified (2 sources) Warfarin therapy started; 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: [resource management planner (current) use of anticoagulants] Onset: 05-01-2017 05-01-2017 [...] Other aftercare (20 sources) Anticoagulant effect; 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: [resource management planner (current) use of anticoagulants] Onset: 04-12-2019 Episodic [...] 09:05-0500 Body weight 89.81 kg Whitney Jose EMERGENCY DEPARTMENT NURSE.COMPETITIVE INTELLIGENCE ANALYST Work Phone: [facility] 09-23-2023 09:05-0500 Diastolic blood pressure 70 mm[Hg] Whitney Jose EMERGENCY DEPARTMENT NURSE.COMPETITIVE INTELLIGENCE ANALYST Work Phone: [facility] 09-23-2023 09:05-0500 Heart rate 83 /min Whitney Jose EMERGENCY DEPARTMENT NURSE.COMPETITIVE INTELLIGENCE ANALYST Work Phone: [facility] 09-23-2023 09:05-0500 SaO2% (BldA) [Mass fraction] 97 % Whitney Jose EMERGENCY DEPARTMENT NURSE.COMPETITIVE INTELLIGENCE ANALYST Work Phone: [facility] 09-23-2023 09:05-0500 Systolic blood pressure 128 mm[Hg] Whitney Jose EMERGENCY DEPARTMENT NURSE.COMPETITIVE INTELLIGENCE ANALYST Work Phone: [facility] 05-12-2023 08:54-0400 Body weight 87.54 kg Whitney Jose EMERGENCY DEPARTMENT NURSE.COMPETITIVE INTELLIGENCE ANALYST Work Phone: [facility] 05-12-2023 08:54-0400 Diastolic blood pressure 78 mm[Hg] Whitney Jose EMERGENCY DEPARTMENT NURSE.COMPETITIVE INTELLIGENCE ANALYST Work Phone: [facility] 05-12-2023 08:54-0400 Heart rate 82 /min Whitney Jose EMERGENCY DEPARTMENT NURSE.COMPETITIVE INTELLIGENCE ANALYST Work Phone: [facility] 05-12-2023 08:54-0400 SaO2% (BldA) [Mass fraction] 98 % Whitney Jose EMERGENCY DEPARTMENT NURSE.COMPETITIVE INTELLIGENCE ANALYST Work Phone: [facility] 05-12-2023 08:54-0400 Systolic blood pressure 134 mm[Hg] Whitney Jose EMERGENCY DEPARTMENT NURSE.COMPETITIVE INTELLIGENCE ANALYST Work Phone: [facility] 04-16-2023 07:09-0400 Body weight 88.45 kg Nicolle Tang EMERGENCY DEPARTMENT NURSE.CUSTOMER CARE SPECIALIST Work Phone: [facility] 04-16-2023 07:09-0400 Diastolic blood pressure 80 mm[Hg] Nicolle Tang EMERGENCY DEPARTMENT NURSE.CUSTOMER CARE SPECIALIST Work Phone: [facility] 04-16-2023 07:09-0400 Heart rate 80 /min Nicolle Tang EMERGENCY DEPARTMENT NURSE.CUSTOMER CARE SPECIALIST Work Phone: [facility] 04-16-2023 07:09-0400 Respiratory rate 16 /min Nicolle Tang EMERGENCY DEPARTMENT NURSE.CUSTOMER CARE SPECIALIST Work Phone: [facility] 04-16-2023 07:09-0400 SaO2% (BldA) [Mass fraction] 98 % Nicolle Tang EMERGENCY DEPARTMENT NURSE.CUSTOMER CARE SPECIALIST Work Phone: [facility] 04-16-2023 07:09-0400 Systolic blood pressure 120 mm[Hg] Nicolle Tang EMERGENCY DEPARTMENT NURSE.CUSTOMER CARE SPECIALIST Work Phone: [facility] 04-03-2023 12:28-0400 Body temperature 96.4 [degF] Joon Reed MD Work Phone: [facility] 04-03-2023 12:28-0400 Body weight 91.63 kg Joon Reed MD Work Phone: [facility] 04-03-2023 12:28-0400 Diastolic blood pressure 83 mm[Hg] Joon Reed MD Work Phone: [facility] 04-03-2023 12:28-0400 Heart rate 86 /min Joon Reed MD Work Phone: [facility] 04-03-2023 12:28-0400 Respiratory rate 18 /min Joon Reed MD Work Phone: [facility] 04-03-2023 12:28-0400 SaO2% (BldA) [Mass fraction] 96 % Joon Reed MD Work Phone: [facility] 04-03-2023 12:28-0400 Systolic blood pressure 149 mm[Hg] Joon Reed MD Work Phone: [facility] 03-31-2023 09:09-0400 Body weight 91.17 kg Whitney Jose EMERGENCY DEPARTMENT NURSE.COMPETITIVE INTELLIGENCE ANALYST Work Phone: [facility] 03-31-2023 09:09-0400 Diastolic blood pressure 72 mm[Hg] Whitney Jose EMERGENCY DEPARTMENT NURSE.COMPETITIVE INTELLIGENCE ANALYST Work Phone: [facility] 03-31-2023 09:09-0400 Heart rate 81 /min Whitney Jose EMERGENCY DEPARTMENT NURSE.COMPETITIVE INTELLIGENCE ANALYST Work Phone: [facility] 03-31-2023 09:09-0400 SaO2% (BldA) [Mass fraction] 97 % Whitney Jose EMERGENCY DEPARTMENT NURSE.COMPETITIVE INTELLIGENCE ANALYST Work Phone: [facility] 03-31-2023 09:09-0400 Systolic blood pressure 128 mm[Hg] Whitney Jose EMERGENCY DEPARTMENT NURSE.COMPETITIVE INTELLIGENCE ANALYST Work Phone: [facility] 12-26-2022 11:33-0500 Body temperature 96.91 [degF] Joon Reed MD Work Phone: [facility] 12-26-2022 11:33-0500 Body weight 90.27 kg Joon Reed MD Work Phone: [facility] 12-26-2022 11:33-0500 Diastolic blood pressure 78 mm[Hg] Joon Reed MD Work Phone: [facility] 12-26-2022 11:33-0500 Heart rate 91 /min Joon Reed MD Work Phone: [facility] 12-26-2022 11:33-0500 Respiratory rate 18 /min Joon Reed MD Work Phone: [facility] 12-26-2022 11:33-0500 SaO2% (BldA) [Mass fraction] 97 % Joon Reed MD Work Phone: [facility] 12-26-2022 11:33-0500 Systolic blood pressure 124 mm[Hg] Joon Reed MD Work Phone: [facility] 12-04-2022 10:57-0500 Body temperature 98.4 [degF] Daron Singh MD Work Phone: [facility] 12-04-2022 10:57-0500 Body weight 92.81 kg Daron Singh MD Work Phone: [facility] 12-04-2022 10:57-0500 Diastolic blood pressure 78 mm[Hg] Daron Singh MD Work Phone: [facility] 12-04-2022 10:57-0500 Heart rate 90 /min Daron Singh MD Work Phone: [facility] 12-04-2022 10:57-0500 Respiratory rate 18 /min Daron Singh MD Work Phone: [facility] 12-04-2022 10:57-0500 SaO2% (BldA) [Mass fraction] 97 % Daron Singh MD Work Phone: [facility] 12-04-2022 10:57-0500 Systolic blood pressure 142 mm[Hg] Daron Singh MD Work Phone: [facility] 07-01-2022 11:03-0400 Body weight 88 kg Joon Reed MD Work Phone: [facility] 07-01-2022 11:03-0400 Diastolic blood pressure 82 mm[Hg] Joon Reed MD Work Phone: [facility] 07-01-2022 11:03-0400 Heart rate 76 /min Joon Reed MD Work Phone: [facility] 07-01-2022 11:03-0400 SaO2% (BldA) [Mass fraction] 96 % Joon Reed MD Work Phone: [facility] 07-01-2022 11:03-0400 Systolic blood pressure 142 mm[Hg] Joon Reed MD Work Phone: [facility] 05-06-2022 08:43-0400 Body weight 88.45 kg Xi Haagen EMERGENCY DEPARTMENT NURSE.COMPETITIVE INTELLIGENCE ANALYST Work Phone: [facility] 05-06-2022 08:43-0400 Diastolic blood pressure 80 mm[Hg] Xi Haagen EMERGENCY DEPARTMENT NURSE.COMPETITIVE INTELLIGENCE ANALYST Work Phone: [facility] 05-06-2022 08:43-0400 Heart rate 79 /min Xi Haagen EMERGENCY DEPARTMENT NURSE.COMPETITIVE INTELLIGENCE ANALYST Work Phone: [facility] 05-06-2022 08:43-0400 Respiratory rate 18 /min Xi Haagen EMERGENCY DEPARTMENT NURSE.COMPETITIVE INTELLIGENCE ANALYST Work Phone: [facility] 05-06-2022 08:43-0400 SaO2% (BldA) [Mass fraction] 96 % Xi Haagen EMERGENCY DEPARTMENT NURSE.COMPETITIVE INTELLIGENCE ANALYST Work Phone: [facility] 05-06-2022 08:43-0400 Systolic blood pressure 134 mm[Hg] Xi Haagen EMERGENCY DEPARTMENT NURSE.COMPETITIVE INTELLIGENCE ANALYST Work Phone: [facility] 03-25-2022 16:03-0400 Diastolic blood pressure 70 mm[Hg] Joon Reed MD Work Phone: [facility] 03-25-2022 16:03-0400 Systolic blood pressure 114 mm[Hg] Joon Reed MD Work Phone: [facility] 03-25-2022 15:20-0400 Body weight 88 kg Joon Reed MD Work Phone: [facility] 03-25-2022 15:20-0400 Heart rate 83 /min Joon Reed MD Work Phone: [facility] 03-25-2022 15:20-0400 SaO2% (BldA) [Mass fraction] 97 % Joon Reed MD Work Phone: [facility] 01-17-2022 11:10-0400 Diastolic blood pressure 64 mm[Hg] Joon Reed MD Work Phone: [facility] 01-17-2022 11:10-0400 Systolic blood pressure 112 mm[Hg] Joon Reed MD Work Phone: [facility] 01-17-2022 [id number] Body weight 84.82 kg Joon Reed MD Work Phone: [facility] 01-17-2022 [id number] Heart rate 84 /min Joon Reed MD Work Phone: [facility] 08-17-2017 09:37-0400 BP Diastolic 68 mm[Hg] Kim [...] Start: 10-07-2023 End: 10-08-2023 ambulatory JOON REED Facility:[facility] Start: 09-29-2023 Telephone encounter Joon collins MD Work Phone: [facility] Procedures Date Procedure Procedure Detail Performing Clinician Start: 12-04-2022 Urnls dip stick/tabl et rgnt auto w/o microscopy Arina Alvares PA-C Work Phone: Start: 05-06-2022 2019 CORONAVIRUS Orville Worley EMERGENCY DEPARTMENT NURSE.COMPETITIVE INTELLIGENCE ANALYST Work Phone: Start: 03-25-2022 Hemoglobin A1c/Hemoglobin.total in [...] Work Phone: Start: 01-19-2017 End: 01-19-2017 *BMP rGant Ko MD Work Phone: Start: 01-19-2017 End: [...] as indicated) & Follow up Leeanna Mascorro COMPETITIVE INTELLIGENCE ANALYST Work Phone: Start: 01-05-2017 End: 01-16-2017 DMB Leeanna Perales BOOKKEEPER ASSISTANT Work Phone: Start: 01-05-2017 End: 01-16-2017 Follow Up Appt 2 months Leeanna valentine COMPETITIVE INTELLIGENCE ANALYST Work Phone: Start: 01-05-2017 End: 01-16-2017 Pulmonary Function Test - complete Leeanna Mascorro COMPETITIVE INTELLIGENCE ANALYST Work Phone: Start: 01-05-2017 End: 01-16-2017 Pulmonary stress test/simple Leeanna Mascorro COMPETITIVE INTELLIGENCE ANALYST Work Phone: Plan of Treatment Date Care Activity Detail Author Start: 09-23-2024 Annual PCP Team Impact Hammer Operator jr Disease Visit Annual PCP Team Chronic Disease Visit [facility] Start: 09-23-2024 BP Controlled (<130/80) BP Controlle d (<130/80) [facility] Start: 09-23-2024 Covid-19 Vaccine (#1) Covid-19 Vacci ne (#1) [facility] Immunizations Immunization Date Immunization Notes Care Provider Fa cilispeedy 08-19-2019 influenza virus vacc ine, unspecified formulation Joon Reed MD Work Phone: [facility] 10-01-2012 pneumococcal polysaccharide vaccine, 23 valent Jono Reed MD Work Phone: [facility] 10-03-2011 tetanus toxoid, redu fe diphtheria toxoid, and acellular pertussis vaccine, adsorbed Joon Reed MD Work Phone: [facility] Payers Date Payer Category Payer Medicare [employer] [facility] [id number] 2021-Present [phone] [place] [id number] O [id number] 2021 Medicare [employer] TH[facility] [id number] 2021-Present [phone] [place] [id number] O [id number] 2021 Unknown [id number] Social History Date Type Detail Facility Start: 02-02-2018 End: 07-01-2022 Tobacco smoking status NHIS Never smoked tobacco [facility] Start: 11-01-2021 End: 09-23-2023 Alcohol intake Current non-drinker of alcohol (finding) [facility] Start: 1945 Sex Assigned At Not on file [facility] Start: 01-07-2022 End: 07-01-2022 Exposure to SARS-CoV-2 (event) Not sure [facility] Start: 02-02-2018 End: 07-01-2022 Tobacco use and exposure Smokeless tobacco non-user [facility] Start: 03-31-2023 End: 04-16-2023 History of Social function [facility] Work Phone: Start: 03-31-2023 End: 04-16-2023 Tobacco use panel [facility] Work Phone: Adult Depression Screening Assessment 0 [facility] Work Phone: Medical Equipment Procedure Code Equipment Code Equipment Origin al Text Equipment Identifier Dates Start: 10-02-2015 End: 06-22-2023 Clinical Notes 09-29-2005 to 10-07-2023 Telephone Encounter - EstherLiza shaver Felipe SHOOK - 09/30/2023 10:34 AM ESTTelephone Encounter - Whitney Garcia APRN.COMPETITIVE INTELLIGENCE ANALYST - 09/30/2023 9:17 AM Whitney Echeverria APRN.CNP - 09/23/2023 9:20 AM EST Note Date & Type Note Facility 10-07-2023 Note HNO ID: [id number] Author: JOON REED MD Service: ? Author Type: Physician Type: Progress Notes Filed: 11/10/2023 13:30 Note Text: This note was created using [employer]. Subjective Keisha Red is a 78 year [...] Right shoulder s/p fall with reduction at [facility] Type II or unspecified type diabetes mellitus [...] hours as needed for wheezing/shortness of breath. 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 ([facility] pulmonology) blood sugar diagnostic (BLOOD GLUCOSE TEST) [...] Abs Lymph 1.00 - 4.00 k/uL 1.63 Mckinley% % 6.1 Abs Mckinley <0.87 k/uL 0.42 Eosin% % 4.6 (more content not included)... [facility] 09-30-2023 Miscellaneous Notes Below left on identified [...] asking for something to help. Patient uses [facility] for her pharmacy. Please advise documented in this encounter [facility] 09-23-2023 Note HNO ID: [id number] Author: Whitney Garcia APRN.DOMINGO Service: ? Author [...] hours as needed for wheezing/shortness of breath. 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 Do all this for 180 days. triamcinolone acetonide (KENALOG) 0.1 % cream Apply 1 application to affected area three times daily as needed. For rash on extremities and leg budesonide-formoterol (SYMBICORT) 160-4.5 mcg/actuation inhaler Inhale 2 Puffs as instructed twice daily. ([facility] pulmonology) methocarbamol (ROBAXIN) 500 mg tablet Take [...] Right Lower Extremity With Fat Layer Exposed ([facility]) - 07/26/2023 Pulmonary Hypertension ([facility]) - 05/03/2023 Ramesh (Obstructive Sleep Apnea) - 01/21/2021 Pacemaker - 01/21/2021 Bilateral Carpal Tunnel Syndrome - 01/21/2021 Atrial Flutter ([facility]) - 04/12/2019 Anticoagulated On Coumadin - 04/12/2019 Severe Low Back Pain - 12/28/2018 Ddd (Degenerative Disc Disease), Lumbar Comment: Dr. Agudelo Muscle Spasm Rotator Cuff Tear - 05/06/2011 Diabetes Mellitus Type 2, Controlled, Without Complications ([facility]) Hyperlipemia - 12/19/2010 Back Strain, recurrent Comment: [...] round, and reacti (more content not included)... [facility] 09-23-2023 History of Present illness Narrative SUBJECTIVE [...] hours as needed for wheezing/shortness of breath. 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 Do all this for 180 days. triamcinolone acetonide (KENALOG) 0.1 % cream Apply 1 application to affected area three times daily as needed. For rash on extremities and leg budesonide-formoterol (SYMBICORT) 160-4.5 mcg/actuation inhaler Inhale 2 Puffs as instructed twice daily. ([facility] pulmonology) methocarbamol (ROBAXIN) 500 mg tablet Take [...] Hemorrhagic Disorder Due to Extrinsic Circulating Anticoagulants ([facility]) - 09/23/2023 Ulcer of Right Lower Extremity With Fat Layer Exposed ([facility]) - 07/26/2023 Pulmonary Hypertension ([facility]) - 05/03/2023 Ramesh (Obstructive Sleep Apnea) - 01/21/2021 Pacemaker - 01/21/2021 Bilateral Carpal Tunnel Syndrome - 01/21/2021 Atrial Flutter ([facility]) - 04/12/2019 Anticoagulated On Coumadin - 04/12/2019 Severe Low Back Pain - 12/28/2018 Ddd (Degenerative Disc Disease), Lumbar Comment: Dr. Agudelo Muscle Spasm Rotator Cuff Tear - 05/06/2011 Diabetes Mellitus Type 2, Controlled, Without Complications ([facility]) Hyperlipemia - 12/19/2010 Back Strain, recurrent Comment: [...] Whitney Garcia APRN-DOMINGO documented in this encounter [facility] 09-18-2023 Miscellaneous Notes Last office visit: 06/22/23 Next appointment scheduled: 09/23/23 Patient has been identified by name and date of : Yes Requested Prescriptions Pending Prescriptions Disp Refills albuterol HFA (PROAIR HFA) 90 mcg/actuation inhaler 1 Each 3 Sig: Inhale 2 Puffs as instructed every 4 hours as needed for wheezing/shortness of breath. 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 No need to notify patient. Mattie Mosley documented in this encounter [facility] 09-10-2023 Miscellaneous Notes Left a message with information listed below. Maddie Rojo LPN If her back pain is a 10 of 10 and not being helped with medications she should go to the emergency department for further evaluation and treatment. Patient calling to ask if provider gave an answer. Went over notes below from Nicolle Tang BOOKKEEPER ASSISTANT with understanding. Patient is going to call [facility] and discuss with them. Attempted to contact [...] the TENS unit electrodes to [facility], not sure if they can provide that [...] old & worn out. Pt uses [facility] in [place]. Please notify pt of response. Elvia Orellana LPN documented in this encounter [facility] 07-16-2023 Miscellaneous Notes ok Patient calling to request order for new glucometer. Her old one is no longer working. [facility]. Patient has been identified by name [...] Taylor Ruffin, RN documented in this encounter [facility] 07-14-2023 Miscellaneous Notes Patient has been identified [...] advise. Brooke Cooper documented in this encounter [facility] 06-22-2023 Note HNO ID: [id number] Author: Joon Reed MD Service: ? Author Type: Physician Type: Progress Notes Filed: 07/26/2023 9:47 PM Note Text: This note was created using [employer]. Subjective Keisha Red is a 78 year [...] on foot) down to the nerves--working with job captain to heal. Still wrapped. They applied placenta [...] Right shoulder s/p fall with reduction at [facility] Type II or unspecified type diabetes mellitus without mention of complication, not stated as uncontrolled Unspecified asthma(493.90) Unspecified essential hypertension Current Outpatient Medications Medication Sig albuterol HFA (PROAIR HFA) 90 mcg/actuation inhaler Inhale 2 Puffs as instructed every 4 hours as needed for wheezing/shortness of breath. 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 [facility] 06-22-2023 Miscellaneous Notes Faxed request to [employer] to have compliance report faxed to office [...] Yuko Rogers RN documented in this encounter [facility] 05-12-2023 Note HNO ID: [id number] Author: Whitney Garcia APRN.COMPETITIVE INTELLIGENCE ANALYST Service: ? Author Type: Nurse Practitioner Type: Progress Notes Filed: 05/12/2023 10:43 AM Note Text: JESSICA Red is a 78 year old female here today for an ER follow up. Chief Complaint Patient presents with: Wound Check: 05/02/2023 left foot burn from a plate of hot chicken sliding of plate [address] [facility] ER on 05/09/23. Was treated with cephalexin 500mg every 6 hours. HPI Keisha Red is a 78 year old female established patient of Joon Reed MD. She presents today for an ER follow up. Seen in the ER at [facility] for an injury sustained on 05/02. Her [...] hours as needed for wheezing/shortness of breath. 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 [facility] 05-12-2023 Instructions Whitney Garcia APRN.DOMINGO - 05/12/2023 [...] the Keflex, start doxycycline for infection. See job captain (foot doctor). documented in this encounter [facility] 05-12-2023 History of Present illness Narrative Images from the original note were not included. SUBJECTIVE Keisha Red is a 78 year old female here today for an ER follow up. Chief Complaint Patient presents with: Wound Check: 05/02/2023 left foot burn from a plate of hot chicken sliding of plate [address] [facility] ER on 05/09/23. Was treated with cephalexin 500mg every 6 hours. HPI Keisha Red is a 78 year old female established patient of Joon Reed MD. She presents today for an ER follow up. Seen in the ER at [facility] for an injury sustained on 05/02. Her [...] hours as needed for wheezing/shortness of breath. 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) diclofenac (VOLTAREN ARTHRITIS PAIN) 1 [...] Diabetes Mellitus Type 2, Controlled, Without Complications ([facility]) Hyperlipemia - 12/19/2010 Back Strain, recurrent Comment: [...] Whitney Garcia APRN-DOMINGO documented in this encounter [facility] 05-06-2023 Miscellaneous Notes The following approved medication [...] the patient as she uses [facility] in [place] documented in this encounter [facility] 04-16-2023 Note HNO ID: [id number] Author: Nicolle Tang APRN.CUSTOMER CARE SPECIALIST Service: ? Author Type: Nurse Specialist Type: [...] 03/25/2022 6.0 ) She reports going to [facility] for eye exams. Does not have a job captain currently. No complaints with her feet. Declines [...] Take 2 table (more content not included)... [facility] 04-16-2023 History of Present illness Narrative SUBJECTIVE: [...] 03/25/2022 6.0 ) She reports going to [facility] for eye exams. Does not have a job captain currently. No complaints with her feet. Declines [...] hours as needed for wheezing/shortness of breath. 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 Type II or unspecified type diabetes mellitus [...] retinopathy - ICD9: V80.2, ICD10: Z13.5 [facility] [place] 9. Controlled type 2 diabetes mellitus without complication, without long-term current use of insulin (HCC) - ICD9: 250.00, ICD10: E11.9 Nicolle Tang APRN.CUSTOMER CARE SPECIALIST Keep 3 mo follow up MD Nicolle Mcgraw APRN.CUSTOMER CARE SPECIALIST Medical Decision Making: Problems: Low: Acute, uncomplicated illness or injury Risk: Moderate: Drug management Medical Decision Making Level: 3 - Low documented in this encounter [facility] 04-15-2023 Miscellaneous Notes Patient call in for [...] out of chair anyways. Protocols used: Chest Sbym-BEJAY-PY, Breathing Bsbleylekr-AAENZ-UQ documented in this encounter [facility] 04-03-2023 Note HNO ID: [id number] Author: Joon Reed MD Service: ? Author Type: Physician Type: Progress Notes Filed: 05/03/2023 11:38 PM Note Text: This note was created using [employer]. Subjective Keisha Red is a 78 year [...] Right shoulder s/p fall with reduction at [facility] Type II or unspecified type diabetes mellitus [...] hours as needed for wheezing/shortness of breath. 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 Musculoskeletal: (more content not included)... [facility] 04-03-2023 History of Present illness Narrative This [...] Right shoulder s/p fall with reduction at [facility] Type II or unspecified type diabetes mellitus [...] hours as needed for wheezing/shortness of breath. 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 Judgment: Judgment normal. Labs from [facility] ER evaluation reviewed. Assessment and Plan Encounter Diagnosis ICD-10-CM 1. Controlled type 2 diabetes mellitus without complication, without long-term current use of insulin ([facility]) E11.9 metFORMIN ER (GLUCOPHAGE XR) 500 [...] BASIC 7. Atrial flutter, unspecified type ([facility]) I48.92 8. Pacemaker Z95.0 9. Essential hypertension I10 10. Mild intermittent asthma without complication J45.20 11. RAMESH (obstructive sleep apnea) G47.33 12. 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 Anticoagulated on Coumadin Z79.01 14. Pulmonary hypertension (HCC) I27.20 Follows with [facility] pulmonology Above issues addressed with patient. Patient [...] the date of the service which included [id number] patient care, completing clinical documentation, performing a medically appropriate examination, counseling and educating the patient/family/caregiver, ordering medications, tests, or procedures, and communicating results to the patient/family/caregiver. Joon Reed MD documented in this encounter [facility] 03-31-2023 Note HNO ID: [id number] Author: Whitney Garcia APRN.COMPETITIVE INTELLIGENCE ANALYST Service: ? Author Type: Nurse Practitioner Type: [...] hours as needed for wheezing/shortness of breath. 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 Conjunctiva/scl (more content not included)... [facility] 03-31-2023 Instructions Whitney Garcia APRN.DOMINGO - 03/31/2023 [...] try a steroid. documented in this encounter [facility] 06-06-2023 History of Present illness Narrative Images [...] hours as needed for wheezing/shortness of breath. 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 03/31/2023 by Whitney Garcai APRN.CNP - OXYCODONE-ACETAMINOPHEN 5 MG-325 MG TABLET [...] Whitney Garcia APRN-DOMINGO documented in this encounter [facility] 03-26-2023 Miscellaneous Notes Patient has been identified [...] Taylor Ruffin RN documented in this encounter [facility] 03-17-2023 Note HNO ID: [id number] Author: Souleymane Shepard APRN.COMPETITIVE INTELLIGENCE ANALYST Service: ? Author Type: Nurse Practitioner Type: [...] to exit. Family member will proceed to [facility] for further evaluation care. Caregiver verbalized understand agrees with plan of care. Souleymane Shepard APRN.COMPETITIVE INTELLIGENCE ANALYST [facility] 12-26-2022 Miscellaneous Notes Electronic PA completed for cyclobenzaprine. This was approved form 12/12/22 to 12/27/23. documented in this encounter [facility] 12-26-2022 Note HNO ID: [id number] Author: Joon Reed MD Service: ? Author Type: Physician Type: Progress Notes Filed: 01/26/2023 12:44 AM Note Text: This note was created using [employer]. Subjective Keisha Red is a 77 year [...] Right shoulder s/p fall with reduction at [facility] Type II or unspecified type diabetes mellitus [...] hours as needed for wheezing/shortness of breath. 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 [facility] 12-26-2022 History of Present illness Narrative This note was created using [employer]. Subjective Keisha Red is a 77 year [...] Right shoulder s/p fall with reduction at [facility] Type II or unspecified type diabetes mellitus [...] hours as needed for wheezing/shortness of breath. 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 Author [...] hours as needed for wheezing/shortness of breath. 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 Type II or unspecified type diabetes mellitus [...] with PCP next month. Daron Singh MD [facility] 12-04-2022 History of Present illness Narrative Patient [...] hours as needed for wheezing/shortness of breath. 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 Type II or unspecified type diabetes mellitus [...] Daron Singh MD documented in this encounter [facility] 12-04-2022 Miscellaneous Notes noted, agree with urgent care Patient calling she is noticing she is voiding smaller amounts, and burning with urination and has frequency for several hours each day. Aware PCP is out of office today and patient can not make the appt time offered for BOOKKEEPER ASSISTANT. Advised patient that she can walk in at the [facility] for evaluation to see if she has UTI. Patient plans to do that today. documented in this encounter [facility] 11-20-2022 Miscellaneous Notes Patient has been identified [...] Cecilia Rojo Pss documented in this encounter [facility] 09-15-2022 Miscellaneous Notes Last filled February. Uses [...] Omaira Ortega Pss documented in this encounter [facility] 07-28-2022 Miscellaneous Notes Patient calling asking for new glucose meter, one she had stopped working. She does not know which meter is covered by her insurance. Pending generic meter, strips, lancets to file. Patient uses [facility] for her pharmacy. Aware PCP is out [...] Tamy Donis LPN documented in this encounter [facility] 07-01-2022 History of Present illness Narrative This note was created using [employer]. Subjective Keisha Red is a 77 year [...] Right shoulder s/p fall with reduction at [facility] Type II or unspecified type diabetes mellitus [...] hours as needed for wheezing/shortness of breath. 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 ER. Reports something is not right. Daughter [...] Maddie Rojo LPN documented in this encounter [facility] 06-16-2022 Miscellaneous Notes Daughter calling, mother seems [...] AND [3] new-onset Protocols used: Confusion - Dqdfziht-YEZQI-BS documented in this encounter [facility] 05-13-2022 Miscellaneous Notes Noted. Xi Worley APRN.COMPETITIVE INTELLIGENCE ANALYST x3 attempt. Unable to reach patient. Contacted [facility] & confirmed with automobile glass technician patient picked up medication 05/11/22 @ [...] Xi Worley APRN.DOMINGO documented in this encounter [facility] 05-07-2022 Miscellaneous Notes See other TE. Curtis Yi LPN Can please let patient know that the chest xray did not show any pneumonia. Xi Worley APRN.DOMINGO Pt calling for results from CXR that was completed this am. Elvia Orellana LPN documented in this encounter [facility] 05-06-2022 Miscellaneous Notes See office notes. Xi Worley APRN.CNP Pt called in and states wheezing, coughing x 3 days. No apt available today with pcp/team/Int med. Apt booked with FP. Maddie Rojo LPN documented in this encounter [facility] 05-06-2022 Instructions Xi Worley APRN.CNP - 05/06/2022 9:05 AM EDT 1. Get the xray. 2. Start the prednisone -- 2 pills daily X 5 days. 3. Watch sugars. Let us know if getting high. 4. Push fluids. 5. Let us know if not improving or getting worse. documented in this encounter [facility] 05-06-2022 History of Present illness Narrative This [...] Right shoulder s/p fall with reduction at [facility] Type II or unspecified type diabetes mellitus [...] hours as needed for wheezing/shortness of breath. 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 Subjective Keisha Red is a 77 year [...] Right shoulder s/p fall with reduction at [facility] Type II or unspecified type diabetes mellitus without mention of complication, not stated as uncontrolled Unspecified asthma(493.90) Unspecified essential hypertension Current Outpatient Medications Medication Sig albuterol HFA (PROAIR HFA) 90 mcg/actuation inhaler Inhale 2 Puffs as instructed every 4 hours as needed for wheezing/shortness of breath. 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 as usual and have managed by [facility] 5. Encounter for long-term current use of medication - ICD9: V58.69, ICD10: Z79.899 - CBC 6. Atrial flutter, unspecified type (HCC) - ICD9: 427.32, ICD10: I48.92 stable on meds Joon Reed MD documented in this encounter [facility] 01-17-2022 History of Present illness Narrative This note was created using [employer]. Subjective Keisha Red is a 76 year [...] Right shoulder s/p fall with reduction at [facility] Type II or unspecified type diabetes mellitus [...] hours as needed for wheezing/shortness of breath. 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 Subjective Keisha Red is a 76 year old female. Patient presents with: Recheck: 2 month follow up SUBJECTIVE: Keisha Red is a 76 year old year old lady here today for 2 month follow up appointment for review of medical conditions. Overall doing okay. Back pain with weather changes. Goes to [facility] for INRs. Not following with grain operator. Has not gotten COVID vaccine. Will see urologist in [place] next week. Will see eye doctor soon. [...] Right shoulder s/p fall with reduction at [facility] Type II or unspecified type diabetes mellitus without mention of complication, not stated as uncontrolled Unspecified asthma(493.90) Unspecified essential hypertension Current Outpatient Medications Medication Sig oxyCODONE-acetaminophen (PERCOCET) 5-325 mg tablet Take 5-325 mg by mouth twice daily. As needed albuterol HFA (PROAIR HFA) 90 mcg/actuation inhaler Inhale 2 Puffs as instructed every 4 hours as needed for wheezing/shortness of breath. 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) cyclobenzaprine (FLEXERIL) 10 mg tablet [...] 4 - Moderate documented in this encounter [facility] documented as of this encounter (statuses as of 02/03/2022) [facility] History of Past illness Narrative* Problem Noted Date Resolved Date Contact dermatitis and other eczema 09/29/2005 09/16/2021 Contact dermatitis and other eczema, due to unspecified cause 09/16/2021 documented as of this encounter (statuses as of 03/31/2022) [address] History of Past illness Narrative* Problem Noted Date Resolved Date Contact dermatitis and other eczema 09/29/2005 09/16/2021 Contact dermatitis and other eczema, due to unspecified cause 09/16/2021 documented as of this encounter (statuses as of 04/10/2022) [address]2005 History of Past illness Narrative* Problem Noted Date Resolved Date Contact dermatitis and other eczema 09/29/2005 09/16/2021 Contact dermatitis and other eczema, due to unspecified cause 09/16/2021 documented as of this encounter (statuses as of 04/18/2022) [facility] History of Past illness Narrative* Problem Noted Date Resolved Date Contact dermatitis and other eczema 09/29/2005 09/16/2021 Contact dermatitis and other eczema, due to unspecified cause 09/16/2021 documented as of this encounter (statuses as of 05/06/2022) [facility] History of Past illness Narrative* Problem Noted Date Resolved Date Contact dermatitis and other eczema 09/29/2005 09/16/2021 Contact dermatitis and other eczema, due to unspecified cause 09/16/2021 documented as of this encounter (statuses as of 05/06/2022) [facility] History of Past illness Narrative* Problem Noted Date Resolved Date Contact dermatitis and other eczema 09/29/2005 09/16/2021 Contact dermatitis and other eczema, due to unspecified cause 09/16/2021 documented as of this encounter (statuses as of 05/07/2022) [facility] History of Past illness Narrative* Problem Noted Date Resolved Date Contact dermatitis and other eczema 09/29/2005 09/16/2021 Contact dermatitis and other eczema, due to unspecified cause 09/16/2021 documented as of this encounter (statuses as of 05/13/2022) [place] [address]-05-2005 History of Past illness Narrative* Problem Noted Date Resolved Date Contact dermatitis and other eczema 09/29/2005 09/16/2021 Contact dermatitis and other eczema, due to unspecified cause 09/16/2021 documented as of this encounter (statuses as of 06/17/2022) [address] History of Past illness Narrative* Problem Noted Date Resolved Date Contact dermatitis and other eczema 09/29/2005 09/16/2021 Contact dermatitis and other eczema, due to unspecified cause 09/16/2021 documented as of this encounter (statuses as of 07/28/2022) [address] History of Past illness Narrative* Problem Noted Date Resolved Date Contact dermatitis and other eczema 09/29/2005 09/16/2021 Contact dermatitis and other eczema, due to unspecified cause 09/16/2021 documented as of this encounter (statuses as of 08/21/2022) [facility] History of Past illness Narrative* Problem Noted Date Resolved Date Contact dermatitis and other eczema 09/29/2005 09/16/2021 Contact dermatitis and other eczema, due to unspecified cause 09/16/2021 documented as of this encounter (statuses as of 09/16/2022) [facility] History of Past illness Narrative* Problem Noted Date Resolved Date Contact dermatitis and other eczema 09/29/2005 09/16/2021 Contact dermatitis and other eczema, due to unspecified cause 09/16/2021 documented as of this encounter (statuses as of 11/20/2022) [facility] History of Past illness Narrative* Problem Noted Date Resolved Date Contact dermatitis and other eczema 09/29/2005 09/16/2021 Contact dermatitis and other eczema, due to unspecified cause 09/16/2021 documented as of this encounter (statuses as of 12/04/2022) [facility] History of Past illness Narrative* Problem Noted Date Resolved Date Contact dermatitis and other eczema 09/29/2005 09/16/2021 Contact dermatitis and other eczema, due to unspecified cause 09/16/2021 documented as of this encounter (statuses as of 12/04/2022) [facility] History of Past illness Narrative* Problem Noted Date Resolved Date Contact dermatitis and other eczema 09/29/2005 09/16/2021 Contact dermatitis and other eczema, due to unspecified cause 09/16/2021 documented as of this encounter (statuses as of 12/26/2022) [address] History of Past illness Narrative* Problem Noted Date Resolved Date Contact dermatitis and other eczema 09/29/2005 09/16/2021 Contact dermatitis and other eczema, due to unspecified cause 09/16/2021 documented as of this encounter (statuses as of 01/26/2023) [address] History of Past illness Narrative* Problem Noted Date Resolved Date Contact dermatitis and other eczema 09/29/2005 09/16/2021 Contact dermatitis and other eczema, due to unspecified cause 09/16/2021 documented as of this encounter (statuses as of 03/27/2023) [address]2005 History of Past illness Narrative* Problem Noted Date Resolved Date Contact dermatitis and other eczema 09/29/2005 09/16/2021 Contact dermatitis and other eczema, due to unspecified cause 09/16/2021 documented as of this encounter (statuses as of 03/31/2023) [address]2005 History of Past illness Narrative* Problem Noted Date Resolved Date Contact dermatitis and other eczema 09/29/2005 09/16/2021 Contact dermatitis and other eczema, due to unspecified cause 09/16/2021 documented as of this encounter (statuses as of 04/16/2023) [facility] History of Past illness Narrative* Problem Noted Date Resolved Date Contact dermatitis and other eczema 09/29/2005 09/16/2021 Contact dermatitis and other eczema, due to unspecified cause 09/16/2021 documented as of this encounter (statuses as of 04/16/2023) [facility] History of Past illness Narrative* Problem Noted Date Diagnosed Date Resolved Date Contact dermatitis and other eczema 09/29/2005 09/16/2021 Contact dermatitis and other eczema, due to unspecified cause 09/16/2021 documented as of this encounter (statuses as of 05/04/2023) [address] History of Past illness Narrative* Problem Noted Date Diagnosed Date Resolved Date Contact dermatitis and other eczema 09/29/2005 09/16/2021 Contact dermatitis and other eczema, due to unspecified cause 09/16/2021 documented as of this encounter (statuses as of 05/12/2023) [place] [address]2005 History of Past illness Narrative* Problem Noted Date Diagnosed Date Resolved Date Contact dermatitis and other eczema 09/29/2005 09/16/2021 Contact dermatitis and other eczema, due to unspecified cause 09/16/2021 documented as of this encounter (statuses as of 06/03/2023) [facility] History of Past illness Narrative* Problem Noted Date Diagnosed Date Resolved Date Contact dermatitis and other eczema 09/29/2005 09/16/2021 Contact dermatitis and other eczema, due to unspecified cause 09/16/2021 documented as of this encounter (statuses as of 06/23/2023) [address] History of Past illness Narrative* Problem Noted Date Diagnosed Date Resolved Date Contact dermatitis and other eczema 09/29/2005 09/16/2021 Contact dermatitis and other eczema, due to unspecified cause 09/16/2021 documented as of this encounter (statuses as of 07/15/2023) [facility] History of Past illness Narrative* Problem Noted Date Diagnosed Date Resolved Date Contact dermatitis and other eczema 09/29/2005 09/16/2021 Contact dermatitis and other eczema, due to unspecified cause 09/16/2021 documented as of this encounter (statuses as of 07/17/2023) [facility] History of Past illness Narrative* Problem Noted Date Diagnosed Date Resolved Date Contact dermatitis and other eczema 09/29/2005 09/16/2021 Contact dermatitis and other eczema, due to unspecified cause 09/16/2021 documented as of this encounter (statuses as of 09/10/2023) [facility] History of Past illness Narrative* Problem Noted Date Diagnosed Date Resolved Date Contact dermatitis and other eczema 09/29/2005 09/16/2021 Contact dermatitis and other eczema, due to unspecified cause 09/16/2021 documented as of this encounter (statuses as of 09/18/2023) [facility] History of Past illness Narrative* Problem Noted Date Diagnosed Date Resolved Date Contact dermatitis and other eczema 09/29/2005 09/16/2021 Obesity, unspecified 023 Last Assessment & Plan: Assessment: Body mass index is 30.11 kg/m . Contact dermatitis and other eczema, due to unspecified cause 09/16/2021 Dizziness and giddiness 08/27 documented as of this encounter (statuses as of 09/23/2023) [facility] History of Past illness Narrative* Problem Noted Date Diagnosed Date Resolved Date Contact dermatitis and other eczema 09/29/2005 09/16/2021 Obesity, unspecified 023 Last Assessment & Plan: Assessment: Body mass index is 30.11 kg/m . Contact dermatitis and other eczema, due to unspecified cause 09/16/2021 Dizziness and giddiness 08/27 documented as of this encounter (statuses as of 09/30/2023) [facility] Diagnosis Controlled type 2 diabetes mellitus [...] ligament, initial encounter documented in this encounter [facility] note* Diagnosis Controlled type 2 [...] ligament, initial encounter documented in this encounter [facility] note* Diagnosis Diabetes mellitus type [...] of insulin (HCC) [facility] Mild intermittent asthma with [...] therapeutic drug monitoring [facility] Diagnosis Back strain, subsequent encounter- [...] of insulin (HCC) [facility] Diagnosis Controlled type 2 diabetes mellitus [...] pulmonary heart diseases [facility] Diagnosis Cellulitis of foot- Primary Cellulitis and abscess of foot, except toes Partial thickness burn of left foot, subsequent encounter Controlled type 2 diabetes mellitus without complication, without long-term current use of insulin (HCC) [facility] Diagnosis Back strain, sequela Severe low back pain Lumbago DDD (degenerative disc disease), lumbar Degeneration of lumbar or lumbosacral intervertebral disc [facility] Diagnosis Diabetes mellitus with no complication (HCC)- Primary Type II or unspecified type diabetes mellitus without mention of complication, not stated as uncontrolled [facility] Diagnosis DDD (degenerative disc disease), lumbar Degeneration of lumbar or lumbosacral intervertebral disc Back Strain, recurrent Sprain of unspecified site of back [facility] Diagnosis Mild intermittent asthma without complication Unspecified asthma [facility] Diagnosis Severe low back pain- Primary [...] of insulin (HCC) documented in this encounter [facility] Summary Purpose Family History No Family History Records FoundNo Family History Records Found Advance Directives No Advanced Directives Records FoundDocuments on File Type Date Recorded Patient Sales Support Consultant Expl anation Advance Directive(s) 01/23/2021 8:35 AM Advance Directive(s) 01/11/2021 11:10 AM Reason for Referral Specialty Diagnoses / Procedures Referred By Aminata marie Referred To Contact Diagnoses Back strain, sequela Joon Reed MD [address] [place] [address] Referral ID Status Reason Start Date Expiration Date V isits Requested Visits Authorized [id number] Authorized 12/12/2022 12/27/2023 1 1 Specialty Diagnoses / Procedures Referred By Aminata marie Referred To Contact [facility] Diagnoses Back strain, subsequent encounter Muscle spasm Back strain, sequela Procedures CONSULT TO PHYSICAL THERAPY PHYSICAL THERAPY EVALUATION HIGH COMPLEX 45 MINS Nicolle Tang, EMERGENCY DEPARTMENT NURSE.CUSTOMER CARE SPECIALIST [address] [place] [address] [facility] [address] [place] [address] Referral ID Status Reason Start Date Expiration Date Visits Requested Visits Authorized [id number] Pending Review Auto-Generat ed Referral 04/16/2023 04/15/2024 1 1 Specialty Diagnoses / Procedures Referred By Aminata marie Ref[facility] Diagnoses Mild intermittent asthma without complication Procedures SPIROMETRY - BASELINE AND POST DILATOR BRNCDILAT RSPSE SPMTRY PRE&POST-BRNCDILAT ADMN Nicolle Tang, EMERGENCY DEPARTMENT NURSE.CUSTOMER CARE SPECIALIST [address] [place] [address] [facility] [address] [place] [address] Referral ID Status Reason Start Date Expiration Date Visits Requested Visits Authorized [id number] Pending Review Auto-Generat ed Referral 04/16/2023 05/15/2024 1 1 Specialty Diagnoses / Procedures Referred By Aminata marie Referred To Contact Podiatry Diagnoses Cellulitis of foot Partial thickness burn of left foot, subsequent encounter Controlled type 2 diabetes mellitus without complication, without long-term current use of insulin (HCC) Procedures CONSULT TO PODIATRY OFFICE/OUTPATIENT [facility] 60-74 MINUTES Whitney Garcia APRN.COMPETITIVE INTELLIGENCE ANALYST [address] [place] [address] Referral ID Status Reason Start Date Expiration Date Visits Requested Visits Authorized [id number] Authorized PCP Requested Referral 05/12/2023 05/11/2024 1 1 Additional Source Comments INFORMATION SOURCE (unrecogn ized section and content) DATE CREATED AUTHOR AUTHOR'S ORGANIZ ATION 11/11/2023 [facility] Source Comments (unrecognize d section and content) In the event this informatio n is protected by the Federal Confidentiality of Alcohol and Drug Abuse Patient Records regulations: The Federal rules restrict any use of the information to criminally investigate or prosecute any alcohol or drug abuse patient.[facility] event this information is protected by the Federal Confidentiality of Alcohol and Drug Abuse Patient Records regulations: The Federal rules restrict any use of the information to criminally investigate or prosecute any alcohol or drug abuse patient.[facility] the event this information is protected by the Federal Confidentiality of Alcohol and Drug Abuse Patient Records regulations: The Federal rules restrict any use of the information to criminally investigate or prosecute any alcohol or drug abuse patient.[facility] the event this information is protected by the Federal Confidentiality of Alcohol and Drug Abuse Patient Records regulations: The Federal rules restrict any use of the information to criminally investigate or prosecute any alcohol or drug abuse patient.[facility] the event this information is protected by the Federal Confidentiality of Alcohol and Drug Abuse Patient Records regulations: The Federal rules restrict any use of the information to criminally investigate or prosecute any alcohol or drug abuse patient.[facility] the event this information is protected by the Federal Confidentiality of Alcohol and Drug Abuse Patient Records regulations: The Federal rules restrict any use of the information to criminally investigate or prosecute any alcohol or drug abuse patient.[facility] the event this information is protected by the Federal Confidentiality of Alcohol and Drug Abuse Patient Records regulations: The Federal rules restrict any use of the information to criminally investigate or prosecute any alcohol or drug abuse patient.[facility] the event this information is protected by the Federal Confidentiality of Alcohol and Drug Abuse Patient Records regulations: The Federal rules restrict any use of the information to criminally investigate or prosecute any alcohol or drug abuse patient.[facility] the event this information is protected by the Federal Confidentiality of Alcohol and Drug Abuse Patient Records regulations: The Federal rules restrict any use of the information to criminally investigate or prosecute any alcohol or drug abuse patient.[facility] the event this information is protected by the Federal Confidentiality of Alcohol and Drug Abuse Patient Records regulations: The Federal rules restrict any use of the information to criminally investigate or prosecute any alcohol or drug abuse patient.[facility] the event this information is protected by the Federal Confidentiality of Alcohol and Drug Abuse Patient Records regulations: The Federal rules restrict any use of the information to criminally investigate or prosecute any alcohol or drug abuse patient.[facility] the event this information is protected by the Federal Confidentiality of Alcohol and Drug Abuse Patient Records regulations: The Federal rules restrict any use of the information to criminally investigate or prosecute any alcohol or drug abuse patient.[facility] the event this information is protected by the Federal Confidentiality of Alcohol and Drug Abuse Patient Records regulations: The Federal rules restrict any use of the information to criminally investigate or prosecute any alcohol or drug abuse patient.[facility] the event this information is protected by the Federal Confidentiality of Alcohol and Drug Abuse Patient Records regulations: The Federal rules restrict any use of the information to criminally investigate or prosecute any alcohol or drug abuse patient.[facility] the event this information is protected by the Federal Confidentiality of Alcohol and Drug Abuse Patient Records regulations: The Federal rules restrict any use of the information to criminally investigate or prosecute any alcohol or drug abuse patient.[facility] the event this information is protected by the Federal Confidentiality of Alcohol and Drug Abuse Patient Records regulations: The Federal rules restrict any use of the information to criminally investigate or prosecute any alcohol or drug abuse patient.[facility] the event this information is protected by the Federal Confidentiality of Alcohol and Drug Abuse Patient Records regulations: The Federal rules restrict any use of the information to criminally investigate or prosecute any alcohol or drug abuse patient.[facility] the event this information is protected by the Federal Confidentiality of Alcohol and Drug Abuse Patient Records regulations: The Federal rules restrict any use of the information to criminally investigate or prosecute any alcohol or drug abuse patient.[facility] the event this information is protected by the Federal Confidentiality of Alcohol and Drug Abuse Patient Records regulations: The Federal rules restrict any use of the information to criminally investigate or prosecute any alcohol or drug abuse patient.[facility] the event this information is protected by the Federal Confidentiality of Alcohol and Drug Abuse Patient Records regulations: The Federal rules restrict any use of the information to criminally investigate or prosecute any alcohol or drug abuse patient.[facility] the event this information is protected by the Federal Confidentiality of Alcohol and Drug Abuse Patient Records regulations: The Federal rules restrict any use of the information to criminally investigate or prosecute any alcohol or drug abuse patient.[facility] the event this information is protected by the Federal Confidentiality of Alcohol and Drug Abuse Patient Records regulations: The Federal rules restrict any use of the information to criminally investigate or prosecute any alcohol or drug abuse patient.[facility] the event this information is protected by the Federal Confidentiality of Alcohol and Drug Abuse Patient Records regulations: The Federal rules restrict any use of the information to criminally investigate or prosecute any alcohol or drug abuse patient.[facility] the event this information is protected by the Federal Confidentiality of Alcohol and Drug Abuse Patient Records regulations: The Federal rules restrict any use of the information to criminally investigate or prosecute any alcohol or drug abuse patient.[facility] the event this information is protected by the Federal Confidentiality of Alcohol and Drug Abuse Patient Records regulations: The Federal rules restrict any use of the information to criminally investigate or prosecute any alcohol or drug abuse patient.[facility] the event this information is protected by the Federal Confidentiality of Alcohol and Drug Abuse Patient Records regulations: The Federal rules restrict any use of the information to criminally investigate or prosecute any alcohol or drug abuse patient.[facility] the event this information is protected by the Federal Confidentiality of Alcohol and Drug Abuse Patient Records regulations: The Federal rules restrict any use of the information to criminally investigate or prosecute any alcohol or drug abuse patient.[facility] the event this information is protected by the Federal Confidentiality of Alcohol and Drug Abuse Patient Records regulations: The Federal rules restrict any use of the information to criminally investigate or prosecute any alcohol or drug abuse patient.[facility] the event this information is protected by the Federal Confidentiality of Alcohol and Drug Abuse Patient Records regulations: The Federal rules restrict any use of the information to criminally investigate or prosecute any alcohol or drug abuse patient.[facility] the event this information is protected by the Federal Confidentiality of Alcohol and Drug Abuse Patient Records regulations: The Federal rules restrict any use of the information to criminally investigate or prosecute any alcohol or drug abuse patient.[facility] the event this information is protected by the Federal Confidentiality of Alcohol and Drug Abuse Patient Records regulations: The Federal rules restrict any use of the information to criminally investigate or prosecute any alcohol or drug abuse patient.[facility] the event this information is protected by the Federal Confidentiality of Alcohol and Drug Abuse Patient Records regulations: The Federal rules restrict any use of the information to criminally investigate or prosecute any alcohol or drug abuse patient.[facility] Reason for Visit (unrecogniz ed section and [...] of plate [address] [facility] ER on 05/09/23.Was treated with cephalexin 500mg every 6 hours. Reason Onset Date Comments Refill Request 05/04/2023 Refill Request 06/03/2023 Reason Comments Patient Concerns Reason Comments Glucometer Order Reason Comments Severe Back Pain Reason Onset Date Comments Refill Request 09/18/2023 Reason Comments Medication Request Care Teams (unrecognized sec tion and content) Dethistler Operator Relationship Specialty Start Date End Date Joon Reed MD [address] [place] [address], [place] [address] PCP - General 08/18/02 Dethistler Operator Relationship Specialty Start Date End Date Joon Reed MD [address] [place] [address] [place] [address] PCP - General 08/18/02 Dethistler Operator Relationship Specialty Start Date End Date Joon Reed MD [address] [place] [address] [place] [address] PCP - General 08/18/02 Dethistler Operator Relationship Specialty Start Date End Date Joon Reed MD [address] [place] [address], [place] [address] PCP - General 08/18/02 Dethistler Operator Relationship Specialty Start Date End Date Joon Reed MD [address] [place] [address], [place] [address] PCP - General 08/18/02 Dethistler Operator Relationship Specialty Start Date End Date Joon Reed MD [address] [place] [address], [place] [address] PCP - General 08/18/02 Dethistler Operator Relationship Specialty Start Date End Date Joon Reed MD [address] [place] [address], [place] [address] PCP - General 08/18/02 Dethistler Operator Relationship Specialty Start Date End Date Joon Reed MD [address] [place] [address], [place] [address] PCP - General 08/18/02 Dethistler Operator Relationship Specialty Start Date End Date Joon Reed MD [address] [place] [address], [place] [address] PCP - General 08/18/02 Dethistler Operator Relationship Specialty Start Date End Date Joon Reed MD [address] [place] [address], [place] [address] PCP - General 08/18/02 Dethistler Operator Relationship Specialty Start Date End Date Joon Reed MD [address] [place] [address], [place] [address] PCP - General 08/18/02 Dethistler Operator Relationship Specialty Start Date End Date Joon Reed MD [address] [place] [address], [place] [address] PCP - General 08/18/02 Dethistler Operator Relationship Specialty Start Date End Date Joon Reed MD [address] [place] [address], [place] [address] PCP - General 08/18/02 Dethistler Operator Relationship Specialty Start Date End Date Joon Reed MD [address] [place] [address], [place] [address] PCP - General 08/18/02 Dethistler Operator Relationship Specialty Start Date End Date Joon Reed MD [address] [place] [address], [place] [address] PCP - General 08/18/02 Dethistler Operator Relationship Specialty Start Date End Date Joon Reed MD [address] [place] [address], [place] [address] PCP - General 08/18/02 Dethistler Operator Relationship Specialty Start Date End Date Joon Reed MD [address] [place] [address], [place] [address] PCP - General 08/18/02 Dethistler Operator Relationship Specialty Start Date End Date Joon Reed MD [address] [place] [address] PCP - General 08/18/02 Dethistler Operator Relationship Specialty Start Date End Date Joon Reed MD [address] [place] [address] PCP - General 08/18/02 Dethistler Operator Relationship Specialty Start Date End Date Joon Reed MD [address] [place] [address] PCP - General 08/18/02 Dethistler Operator Relationship Specialty Start Date End Date Joon Reed MD [address] [place] [address] PCP - General 08/18/02 Dethistler Operator Relationship Specialty Start Date End Date Joon Reed MD [address] [place] [address] PCP - General 08/18/02 Dethistler Operator Relationship Specialty Start Date End Date Joon Reed MD [address] [place] [address] PCP - General 08/18/02 Dethistler Operator Relationship Specialty Start Date End Date Joon Reed MD [address] [place] [address] PCP - General 08/18/02 FOR RECORDS PERTAINING [...] BE BASED ON THE PRIMARY CLINICAL RECORDS. [facility]. provides no warranty or guarantee of the accuracy or completeness of information in this document.
--- NOTE | 2023-12-04 09:29 | PCM.PSN.6M ---
PSN 6 Minute Walk Test 6 Minute Walk Test 6 Minute Walk Test: 6 Minute Walk Test PSN:6-Minute Walk Test Start: 12/02/23 12:43 Freq: Status: Active Protocol: RESP.6MINW Document 12/02/23 12:43 CARLOS (Rec: 12/02/23 12:45 CARLOS [id number]) 6 Minute Walk Test Date Performed 12/02/23 Time Performed 12:30 Height 5 ft 8 in Weight: 188 lb Weight in Pounds 188.[address]: Tone Alberto Assistive device used: None Pre-test Oxygen Delivery Method Room Air Pulse Ox 99 Pulse Rate (60-100) 91 Dyspnea Anthony Scale (0-10) 0 Exertion Anthony Scale (6-20) 6 1st minute Oxygen Delivery Method Room Air Pulse Ox 96 Pulse Rate (60-100) 91 2nd minute Oxygen Delivery Method Room Air Pulse Ox 97 Pulse Rate (60-100) 89 3rd minute Oxygen Delivery Method Room Air Pulse Ox 99 Pulse Rate (60-100) 89 4th minute Oxygen Delivery Method Room Air Pulse Ox 98 Pulse Rate (60-100) 91 5th minute Oxygen Delivery Method Room Air Pulse Ox 99 Pulse Rate (60-100) 93 6th minute Oxygen Delivery Method Room Air Pulse Ox 98 Pulse Rate (60-100) 94 Dyspnea Anthony Scale (0-10) 2 Exertion Anthony Scale (6-20) 12 Post-test Oxygen Delivery Method Room Air Pulse Ox 99 Pulse Rate (60-100) 90 Full Laps Walked 10 Partial Lap, Number of Tiles Walked 52 Total Distance Walked (ft) 642 Interpretation Interpretation: The patient ambulated 642 feet over the course of 6 minutes beginning on room air without assistive devices. Pretesting oxygen saturation was noted to be 99% on room air. With ambulation, the amandeep oxygen saturation was 96%. Although there was evidence of impaired walk distance, there was no significant exertional oxygen desaturation. Recommendations Recommendations: There is no indication for the use of supplemental oxygen at time.
== END | disposition home or self-care (01) ==
LOC: PSN 12:23
PROVIDERS: PCP Internal Medicine; Referring Provider Internal Medicine Critical Care Medicine; Visit Provider Internal Medicine Critical Care Medicine
DX: J45.909 Unspecified asthma, uncomplicated (principal)
CPT/HCPCS: 94618

== ENCOUNTER 2023-12-29 15:50 | Inpatient (IN) | payer MEDICARE, SELFPAY ==
[2023-12-29] VITALS (7 sets, daily range): BP systolic 145–177; BP diastolic 66–144; PULSE 61–87; RESP 14–24; TEMP 36.8–37.1; O2SAT 93–97; BMI 31.2
--- NOTE | 2023-12-29 18:30 | CT_ITS ---
STUDY: CT BRAIN WITHOUT CONTRAST REASON FOR EXAM: Female, 78 years old. Trauma on coumadin RADIATION DOSAGE (If Supplied By Facility): CTDIvol = ( 44.99 ) mGy, DLP = ( 796.11 ) mGycm TECHNIQUE: Transaxial CT imaging of the brain was performed without administration of intravenous contrast material. Individualized dose optimization techniques were used for this CT. COMPARISON: September 01, 2023 FINDINGS: Normal soft tissue structures. Normal calvarium. There is mild cerebral atrophy with widening of the extra-axial spaces and ventricular dilatation. There are areas of decreased attenuation within the white matter tracts of the supratentorial brain, consistent with microvascular disease changes. Normal basal ganglia and thalami. Normal brainstem. Normal cerebellum. There is no intracranial hemorrhage. There are no findings of an acute ischemic infarction. Normal visualized paranasal sinuses. CT/Brain/Head without Contrast IMPRESSION: Chronic involutional changes of the brain. Electronically Signed: Pete Vazquez MD at 21:07 EST ,
--- NOTE | 2023-12-29 18:33 | ED.VIS.FALL ---
HPI HPI - Fall History of Present Illness Chief Complaint: Back Detail of Chief Complaint: Abdominal and rib pain post fall on Thursday. Informant: family Occured/Mechanism Occurred: Days Mechanism/Context: Yes same level fall and Yes other see narrative below Narrative: Dog jumped up on patient knocked over she fell at home on Thursday. Since that time she has had pain in her lower ribs and upper abdomen. Pain/Injury Pain Location: head and chest Quality of Pain: Sharp Current Severity: Mild Maximum Severity: Mild Associated Symptoms Associated Symptoms: Negative for Parasthesias, Weakness, Loss of function, Inability to ambulate, Loss of consciousness or Amnesia Narrative Narrative: 78-year-old female on Coumadin for A-fib, diabetes, hypertension with chronic back pain and TENS unit. She also has a pacemaker. On Thursday her dog jumped up on her she lost her balance and fell hitting the back of her head, her buttocks and injuring her bilateral lower rib cage. She did not tell anybody initially. She is now complaining of lower rib cage pain acute on chronic back pain and upper abdominal pain. Daughter is also concerned because such as foul-smelling urine. No diarrhea. No fever. No nausea, vomiting or constipation. 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 Obesity RAMESH (obstructive sleep apnea) Other secondary pulmonary hypertension Palpitations Pneumonia Shoulder dislocation Home Medications warfarin 5 mg tablet 5 mg PO DAILY blood thinner 11/18/18 [History Last Taken 06/15/22] atorvastatin 10 mg tablet 10 mg PO QHS cholesterol 12/11/19 [History Last Taken 06/15/22] TENS unit electrodes #2 ea 07/11/20 [History Last Taken Unknown] oxycodone-acetaminophen 5 mg-325 mg tablet 1 tab PO Q8H PRN pain 12/07/20 [History Last Taken 06/15/22] cyclobenzaprine 10 mg tablet 5 - 10 mg PO BID PRN Spasms 06/17/22 [History Last Taken 06/16/22] magnesium oxide 400 mg PO DAILY supplement 06/17/22 [History Last Taken 06/16/22] metformin 500 mg tablet,extended release 24 hr 1,000 mg PO BID DM 06/17/22 [History Last Taken 06/16/22] gabapentin 300 mg capsule 300 mg PO BREAKFAST nerve pain 08/04/22 [History Last Taken Unknown] gabapentin 300 mg capsule 600 mg PO QHS Neuropathy 08/04/22 [History Last Taken Unknown] albuterol sulfate 90 mcg/actuation aerosol inhaler 2 puff inhalation Q4H PRN shortness of breath or wheezing #8.5 grams 11/26/23 [Rx Last Taken Unknown] budesonide-formoterol HFA 160 mcg-4.5 mcg/actuation aerosol inhaler (Symbicort) 2 puff inhalation BID asthma #10.2 grams 11/26/23 [Rx Last Taken Unknown] cyclobenzaprine 10 mg tablet 10 mg PO TID PRN Muscle Spasm #20 TABLETS 11/28/23 [Rx Last Taken Unknown] Allergy/AdvReac Type Severity Reaction Status Date / Time amoxicillin Allergy Severe Hives Verified 12/29/23 15:52 aspirin Allergy Severe Hives, SOB Verified 12/29/23 15:52 Sulfa (Sulfonamide Allergy Severe Hives Verified 12/29/23 15:52 Antibiotics) Family History Mother Diabetes Father CAD (coronary artery disease) Sister Lung cancer Son Kidney stone Surgical History History of appendectomy History of kidney surgery Presence of permanent cardiac pacemaker (04/01/19) Social History household members: none housing: house number of children: 3 current occupational status: retired Smoking Status: Never smoker alcohol intake: never substance use type: does not use what type of physical activity do you participate in: none do you feel safe at home: Yes ROS ROS ED ROS Narrative Abdominal pain. Rib pain post fall. Review of Systems ROS Unobtainable: Denies due to encephalopathy Constitutional Constitutional ED: Denies chills or fever(s) Eyes Eyes: Denies blurry vision ENT ENT ED: Denies ear pain Cardiovascular Cardiovascular: Denies chest pain Respiratory/Chest Respiratory/Chest: Denies cough or dyspnea Gastrointestinal Gastrointestinal: Reports abdominal pain; Denies constipation, diarrhea, melena, nausea or vomiting Genitourinary Genitourinary ED: Reports urinary frequency and other Details: Strong smelling urine. ; Denies dysuria or hematuria Musculoskeletal Musculoskeletal: Reports back pain; Denies arthralgias, myalgias or neck pain Integumentary Denies abscess or Abrasions Psychiatric Psychiatric: Denies anxiety or depression Endocrine Endocrinology: Denies polydipsia or polyphagia Hematologic/Lymphatic Hematologic/Lymphatic: Denies easy bleeding, easy bruising or lymphadenopathy Allergic/Immunologic Allergic/Immunologic ED: Denies mouth swelling, tongue swelling or urticaria EXAM Physical Exam Narrative Exam Narrative: 78-year-old female sitting upright in bed. Vital signs are stable afebrile. Daughter at bedside. H EENT exam pupils round react light. No signs of facial trauma. She does have tenderness to her posterior scalp but no significant hematoma. No laceration or blood. C-spine and neck nontender. Back she has a TENS unit on. She has a chronic back pain. There is no bruising. Lungs clear to auscultation. Heart regular rhythm no murmur. Chest wall bilateral lower rib cage tenderness no crepitance, subcu air or bruising. Abdomen is really not significantly tender. There is no peritoneal signs. There is no localizing right upper or right lower quadrant tenderness. There is no bruising. Pelvic girdle is intact. She is moving all 4 extremities. She has good sonoscope operator strength. Dorsi plantarflexion. Neurologically she is awake alert. Answering questions following commands. Const Vital Signs: 12/29/23 15:52 12/29/23 17:50 12/29/23 17:53 Temperature 98.7 F Temperature Source Temporal Pulse Rate 74 63 Respiratory Rate 18 14 Respiratory Effort Normal Non-Labored Respiratory Pattern Normal Blood Pressure 164/88 H 145/104 H Blood Pressure Mean 113 117 Pulse Ox 97 96 Oxygen Delivery Method Room Air Room Air Room Air Oxygen Flow Rate (L/min) 96 12/29/23 20:08 Temperature Temperature Source Pulse Rate Respiratory Rate 16 Respiratory Effort Respiratory Pattern Blood Pressure Blood Pressure Mean Pulse Ox Oxygen Delivery Method Oxygen Flow Rate (L/min) Positive well nourished and well developed; Negative for cachectic, contractures or unkempt General Appearance ED: well developed and NAD; Negative for unkempt, cachectic or contractures Nutritional Appearance: Negative for cachectic HEENT Reports normocephalic HEENT Narrative: Posterior scalp tenderness. No significant hematoma. No laceration or blood. contusion and tenderness; Negative for atraumatic or hematoma Eyes PERRL and EOMs intact bilaterally General Eye ED: Negative for pale conjunctiva or scleral icterus Neck full ROM, no lymphadenopathy and supple General: Negative for tenderness or other Chest Wall Negative for inspection of chest normal or palpation of chest normal Chest Narrative: Bilateral lower anterior rib cage tenderness. No crepitance or subcu air. Chest: Negative for other Resp normal respiratory effort, no retractions and clear to auscultation bilaterally Effort and Inspection: Negative for pain with movement Auscultation: Negative for rales, rhonchi or wheezes Cardio regular rate, regular rhythm, S1 normal heart sound, S2 normal heart sound and no murmurs Rate: Negative for bradycardia or tachycardic Rhythm: Negative for abnormal rhythm Bruits: Negative for other GI non-tender, non-distended and no masses Inspection: Negative for abdominal distention Auscultation: normoactive bowel sounds Palpation: soft; Negative for guarding or rebound tenderness present Back/Spine no CVA tenderness General Back: Negative for CVA tenderness Cervical Spine: Negative for cervical spine tenderness Neuro oriented x3, CN's II-XII intact bilaterally, moves all extremities and no focal motor deficits Sensorium / Orientation: alert, oriented to person, oriented to place and oriented to time; Negative for orientation impaired, confused, lethargic or stuporous Motor Exam: strength 5/5 throughout Psych mental status grossly normal Appearance: Negative for unkempt Attitude: No agitated Mood & Affect: Negative for depressed, anxious or tearful Skin General Skin Exam: Negative for other Lesions: no lesions Rashes: no rashes Trauma: Negative for abrasion or laceration MDM MDM MDM Narrative Medical decision making narrative: 78-year-old fell hit the back of her head on Thursday after her dog jumped up on her. She is on Coumadin. She also complained of bilateral rib cage pain and may be some upper abdominal pain is really not reproducible on exam. She undergo a CAT scan of her head due to the trauma. Chest x-ray. CAT scan of her abdomen that also get a lower rib cage. Screening labs and an INR. She does not want a thing for pain currently. Repeat exam patient is doing well at 10:15 PM. No significant change on exam. I discussed all laboratory work with her and her daughter. Patient has UTI with hydronephrosis and hydroureter of the right kidney due to some type of distal urinary obstruction. Urine culture was sent. Patient was started on IV Rocephin. Both the patient and her daughter are comfortable with the plan and the admission. Of the hospitalist on page. History & Record Review Discussion w/independent historian: Patient and Family Additional record(s) reviewed:: Prior inpatient record, Prior outpatient record, Prior ED visit and Prior labs Lab Data Attestation: I reviewed the patient's lab results. Lab results narrative: CBC shows white 11.4. H&H 13.6 and 39. Platelets 119. She is on Coumadin her INR is 3.3. Electrolytes show sodium 132 gap 6. BUN of 15 creatinine 1. Glucose 164. Liver enzymes are unremarkable. Lipase is less than 10. Urinalysis shows positive nitrites. 5-10 red cells. 25-50 white cells. 4+ bacteria. Labs: Laboratory Results - last 24 hr 12/29/23 12/29/23 19:00 20:16 WBC 11.4 H RBC 4.17 L Hgb 13.6 Hct 39.8 MCV 95.4 MCH 32.6 H MCHC 34.2 RDW Std Deviation 43.5 RDW Coeff of Jason 12.4 Plt Count 119 L MPV 9.9 Immature Gran % (Auto) 0.600 Neut % (Auto) 80.5 H Lymph % (Auto) 11.8 L [place] % (Auto) 6.7 Eos % (Auto) 0.1 Baso % (Auto) 0.3 Absolute Neuts (auto) 9.2 H Absolute Lymphs (auto) 1.35 Nucleated RBC % 0 PT 33.5 H INR 3.3 Sodium 132 L Potassium 4.5 Chloride 100 Carbon Dioxide 26.0 Anion Gap 6 BUN 15 Creatinine 1.03 H Est GFR (MDRD) Af Amer 67 Est GFR (MDRD) Non-Af 55 L BUN/Creatinine Ratio 14.6 Glucose 164 H Calcium 9.2 Total Bilirubin 1.80 H AST 32 ALT 15 Alkaline Phosphatase 91 Total Protein 8.3 H Albumin 3.5 Globulin 4.8 H Albumin/Globulin Ratio 0.7 L Lipase < 10 L Urine Color Yellow Urine Clarity Sl. Cloudy Urine pH 6.5 Ur Specific [place] 1.010 Urine Protein 30 H Urine Glucose (UA) Normal Urine Ketones Negative Urine Occult Blood 50 H Urine Nitrite Positive H Urine Bilirubin Negative Urine Urobilinogen Normal Ur Leukocyte Esterase 500 H Urine RBC 5-10 SEEN Urine WBC 25-50 SEEN Ur Squamous Epith Cells 0 SEEN Urine Bacteria 4+ Urine Mucus 0 SEEN Radiography Diagnostic Testing: Clinical Impression(s) from Imaging Studies Brain CT 12/29/23 18:30 IMPRESSION: Chronic involutional changes of the brain. Electronically Signed: Pete Vazquez MD at 21:07 EST , Abdomen/Pelvis CT 12/29/23 19:50 IMPRESSION: Right hydroureteronephrosis with distal ureteral stricture versus mass. Cystoscopic correlation recommended. Nodular contour of the liver compatible with cirrhosis. Colonic diverticulosis. No obstruction. No solid organ injury. No acute fracture seen. Electronically Signed: Pete Vazquez MD at 21:26 EST Reading Location ID and State: [facility] / [place] , Service support , Chest X-Ray 12/29/23 20:00 IMPRESSION: Degenerative changes, as described above. No demonstrated acute cardiopulmonary process. Electronically Signed: Pete Vazquez MD at 21:27 EST , Discharge Plan Triage Chief Complaint: Back Other Complaint: Fall ED Provider: Abdifatah Lemon Dx/Rx/DC Orders Prescriptions: No Action oxycodone-acetaminophen 5-325 mg tablet 1 tab PO Q8H PRN (Reason: pain) (DME) TENS unit electrodes Pad See Rx Instructions .ROUTE .MEDSUPPLY Qty: 2 Rx Instructions: As directed Symbicort 160-4.5 mcg/actuation HFA aerosol inhaler 2 puff INHALATION BID Qty: 10.2 11RF albuterol sulfate 90 mcg/actuation HFA aerosol inhaler 2 puff INHALATION Q4H PRN (Reason: shortness of breath or wheezing) Qty: 8.5 6RF Rx Instructions: administer with spacer warfarin 5 MG tablet 5 mg PO DAILY Protocol: Dose Management Condition: Thursday Dose/Route: 2.5 mg Instruction: 0.5 x 5 mg tablets Condition: Thursday Dose/Route: 5 mg Instruction: 1 x 5 mg tablet Condition: Thursday Dose/Route: 5 mg Instruction: 1 x 5 mg tablet Condition: Thursday Dose/Route: 5 mg Instruction: 1 x 5 mg tablet Condition: Dose/Route: 5 mg Instruction: 1 x 5 mg tablet Condition: Thursday Dose/Route: 2.5 mg Instruction: 0.5 x 5 mg tablets Condition: Thursday Dose/Route: 2.5 mg Instruction: 0.5 x 5 mg tablets Protocol Text: Adjustment Start Date: Thursday07/10/23 INR Value: 2.3 INR Date: 07/10/23 Recheck Date: 07/31/23 Rx Instructions: 5 mg. , , THU atorvastatin 10 MG tablet 10 mg PO QHS gabapentin 300 mg capsule 600 mg PO QHS cyclobenzaprine 10 mg Tablet 5 - 10 mg PO BID PRN (Reason: Spasms) metformin 500 mg tablet extended release 24 hr 1,000 mg PO BID Patient Comments: Take 2 tablets by mouth twice daily with meals. magnesium oxide 400 mg magnesium Tablet 400 mg PO DAILY gabapentin 300 mg capsule 300 mg PO BREAKFAST Patient Comments: Take 2 capsules by mouth daily at bedtime AND 1 capsule every morning. Rx Instructions: 300 mg orally; cyclobenzaprine 10 mg tablet 10 mg PO TID PRN (Reason: Muscle Spasm) Qty: 20 0RF Primary Care Provider: Ro Reed Referrals: Ro Reed MD [Primary Care Provider] -
[2023-12-29 19:09] LABS: Absolute Lymphocyte Count 1.35 X10^3/uL (0.83-4.51); Absolute Neutrophil Count 9.2 X10^3/uL (2.0-7.7); Basophil# 0.03 X10^3/uL; Basophil% 0.3 % (0-1); Eosinophil# 0.01 X10^3/uL; Eosinophils% 0.1 % (0-5); Hematocrit 39.8 % (37-47); Hemoglobin 13.6 g/dL (12.0-15.0); Lymphocyte # 1.35 X10^3/ul (0.83-4.51); Lymphocyte % 11.8 % (19-41); Mean Corp Hgb Conc 34.2 g/dL (32-36); Mean Corpuscular Hgb 32.6 pg (27.0-32.0); Mean Corpuscular Volume 95.4 fL (81-99); Mean Platelet Vol. 9.9 fl (6.2-12.0); Monocyte# 0.77 X10^3/uL; Monocyte% 6.7 % (0-10); NRBC Flagged by Analyzer 0 % (0-5); Neutrophil # 9.19 X10^3/uL (2.7-7.7); Neutrophil % 80.5 % (47-70); Platelet Count 119 K/mm3 (150-450); RBC Distribution Width CV 12.4 % (11.6-14.6); RBC Distribution Width SD 43.5 fl (35.1-43.9); Red Blood Count 4.17 M/mm3 (4.2-5.4); White Blood Count 11.4 K/mm3 (4.4-11.0)
[2023-12-29 19:20] LABS: International Normalized Ratio 3.3; Prothrombin Time (Protime)PT. 33.5 SECONDS (11.7-14.9)
[2023-12-29 19:28] LABS: ALB/GLOB Ratio 0.7 RATIO (0.9-2.4); AST(SGOT) 32 U/L (15-37); Alanine Aminotransfer ALT/SGPT 15 U/L (13-56); Albumin, Serum 3.5 g/dL (3.2-5.0); Alkaline Phosphatase 91 U/L (45-117); Anion Gap 6 (5-15); BUN 15 mg/dL (7-18); BUN/Creat Ratio 14.6 RATIO (10-20); Calcium,Total 9.2 mg/dL (8.5-10.1); Chloride 100 mmol/L (98-107); Creatinine, Serum 1.03 mg/dL (0.55-1.02); EST Glomerular Filtration Rate 55 mL/min (>60); Est Glom Filt Rate - Afr Amer 67 mL/min (>60); Globulin 4.8 g/dL (2.2-4.2); Glucose 164 mg/dL (74-106); Lipase < 10 U/L (13-75); Potassium 4.5 mmol/L (3.5-5.1); Protein, Total 8.3 g/dL (6.4-8.2); Sodium Level 132 mmol/L (136-145)
--- NOTE | 2023-12-29 19:50 | CT_ITS ---
STUDY: CT ABDOMEN AND PELVIS WITH CONTRAST REASON FOR EXAM: Female, 78 years old. Upper abd pain and rib injury post fall RADIATION DOSAGE (If Supplied By Facility): CTDIvol = ( 25.30 ) mGy, DLP = ( 1331.68 ) mGycm TECHNIQUE: Transaxial images were obtained from the dome of the diaphragm to the symphysis pubis without oral contrast. IV 100mL [id number]-[id number] was administered. Sagittal and coronal images were reconstructed. Individualized dose optimization techniques were used for this CT. COMPARISON: None. FINDINGS: The visualized lung bases are unremarkable. There are pacemaker wires in the heart. There is nodular contour of the liver compatible with cirrhosis. Normal gallbladder and extrahepatic biliary system. Normal spleen. Normal pancreas. Normal bilateral adrenal glands. There is moderate right hydronephrosis. There is dilatation of the right ureter. There is increased density of the right distal ureter with stricture versus mass. Normal left kidney. Normal visualized stomach. Normal small intestine. There are multiple colonic diverticula consistent with diverticulosis. There is non-visualization of the appendix. There is diffuse atherosclerotic calcification of the abdominal aorta, without a demonstrated aneurysm. Normal inferior vena cava. Normal retroperitoneum. Normal urinary bladder. Normal visualized uterus. There is no free fluid in the abdomen or pelvis. Normal abdominal wall. There are degenerative changes of the visualized spine. CT/Abdomen/Pelvis W IV Cont ONLY IMPRESSION: Right hydroureteronephrosis with distal ureteral stricture versus mass. Cystoscopic correlation recommended. Nodular contour of the liver compatible with cirrhosis. Colonic diverticulosis. No obstruction. No solid organ injury. No acute fracture seen. Electronically Signed: Pete Vazquez MD at 21:26 EST ,
--- NOTE | 2023-12-29 20:00 | RAD_ITS ---
STUDY: X-RAY CHEST REASON FOR EXAM: Female, 78 years old. Fall with rib injury TECHNIQUE: Frontal and lateral views of the chest. COMPARISON: March 17, 2023 FINDINGS: Dual chamber pacemaker device on the left is stable. The lungs are clear and expanded. There is no demonstrated pleural abnormality. Normal size heart. Normal mediastinum and mahendra. Normal visualized pulmonary arteries. Normal visualized aortic arch and descending thoracic aorta. There is demineralization of the osseous structures. There is degenerative change of the spine. Normal visualized ribs, clavicles, and shoulders. There is no demonstrated abnormality of the visualized soft tissue structures of the upper abdomen. RAD/Chest PA and Lateral IMPRESSION: Degenerative changes, as described above. No demonstrated acute cardiopulmonary process. Electronically Signed: Pete Vazquez MD at 21:27 EST ,
[2023-12-29 20:22] LABS: Color, Urine Yellow (Yellow); Glucose, Dipstick Normal (Normal); Ketone-Dipstick Negative (Negative); Leukocyte Esterase-Dipstick 500 /ul (Negative); Nitrite-Dipstick Positive (Negative); Occult Blood-Urine 50 /ul (Negative); Protein-Dipstick 30 mg/dl (Negative); Urine Bilirubin Dipstick Negative (Negative); Urine Clarity Sl. Cloudy (Clear); Urine Urobilinogen Normal (Normal); Urine pH 6.5 (5.0 - 8.0)
[2023-12-29 22:13] LABS: Mucous, Urine 0 SEEN /hpf (<or=2+); Squamous Epithelial Cells - UA 0 SEEN /hpf (5-10)
[2023-12-29 22:20] LABS: Bacteria 4+ /hpf (None Seen); Red Blood Cells-Urine 5-10 SEEN /hpf (0-5); White Blood Cells 25-50 SEEN /hpf (0-5)
--- NOTE | 2023-12-29 22:29 | ED.RN ---
dr barroso informed of elevated blood pressure readings. pt is not in any pain, denies use of any antihypertensives at home. per dr. barroso just keep monitoring patient at this time. no need for medications.
--- OUTSIDE RECORDS SUMMARY | 2023-12-29 22:36 | XMS RPT_ITS | CCD ---
Author Name Unknown Address [address] [place] [address] Organization [facility] Care Team Providers Care Electronic Engraver Name Role Phone Wilder BOONE Clarisseheide Zambrano Unavailable Unavaila Kim Sullivan Unavailable Unavailable Joon Reed MD Primary Care Provider Joon Reed MD Primary Care Provider Joon Reed MD Primary Care Provider TALAMPAS, JOON D Referring Unavailable TALAMPAS, JOON D Primary Care Unavailable JOSE, WHITNEY Attending Unavailable TALAMPAS, JOON D Primary Care Unavailable TALAMPAS, JOON D Referring Unavailable TALAMPAS, JOON D Primary Care Unavailable TALAMPAS, JOON D Attending Unavailable JOSE, WHITNEY Attending Unavailable TALAMPAS, JOON D Primary Care Unavailable NICOLLE TANG Attending Unavailable TALAMPAS, JOON D Primary Care Unavailable TALAMPAS, JOON D Referring Unavailable TALAMPAS, JOON D Primary Care Unavailable TALAMPAS, JOON D Attending Unavailable JOSE, WHITNEY Referring Unavailable TALAMPAS, JOON D Primary Care Unavailable JOSE, WHITNEY Attending Unavailable TALAMPAS, JOON D Primary Care Unavailable TALAMPAS, JOON D Primary Care Unavailable TALAMPAS, JOON D Referring Unavailable TALAMPAS, JOON D Primary Care Unavailable TALAMPAS, JOON D Attending Unavailable TALAMPAS, JOON D Primary Care Unavailable TALAMPAS, JOON D Attending Unavailable Allergies Allergy Classification Reported Allergen(s) Allergy Type Date of Onset Reaction(s) Facility (20 sources) amoxicillin; 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: [AMOXICILLIN] Drug Allergy 5 [facility] Work Phone: (20 sources) aspirin; 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: [ASPIRIN] Drug Allergy 04-07-200 9 Hives; SOB [facility] Work Phone: [phone] (2 sources) sulfaSALAzine Drug Allergy 5 Hives [facility] Work Phone: [phone] (4 sources) PROAIR RESPICLICK; 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: [PROAIR RESPICLICK] allergy to substance 6 Lack of efficiency [facility] Work Phone: [phone] (20 sources) Sulfonamides (Antibiotic); 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: [SULFA (SULFONAMIDE ANTIBIOTICS)] [facility] (2 sources) tiZANidine; 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: [TIZANIDINE] Drug Allergy 3 Mental Status Change, Other: See Comments [facility] Work Phone: Medications Current Medications Medication Drug Class(es) Dates [...] tab twice daily as needed HYDROCODONE-ACETAM INOPHEN [id number] Clarisse Bai [id number] 200 actuat albuterol 0.09 mg/actuat metered dose inhaler (20 sources) beta2-Adrenergic Agonist Start: 05-24-2023 End: 09-18-2023 take 2 puff(s) by inhalation every four hours as needed for wheezing albuterol HFA (PROAIR HFA) 90 mcg/actuation inhaler Indications: Mild intermittent asthma without complication Inhale 2 Puffs as instructed every 4 hours as needed for wheezing/shortness of breath. 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] Episodic Other connective tissue [...] Chronic Other nutritional; endocrine; and metabolic disorders (4 sources) Obese class I; 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: [Obesity, unspecified] Onset: 09-23-2023 09-23-2023 Chronic Other upper respiratory disease (20 sources) Allergic rhinitis; 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: [Allergic rhinitis, unspecified] 03-02-2006 Chronic Other upper respiratory infections (1 source) Viral upper respiratory tract infection; 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: [Acute upper respiratory infection, unspecified] Episodic Pulmonary heart disease (16 sources) Pulmonary hypertension; 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: [Other secondary pulmonary [...] disc degeneration, lumbar region] Onset: 10-22-2021 Chronic Spondylosis; intervertebral disc disorders; other back problems (20 sources) Low back pain; 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: [Severe low back pain] Onset: 12-28-2018 Episodic Superficial injury; contusion (1 source) Contusion of hip; 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: [Contusion of left hip, subsequent encounter] 04-03-2023 Episodic Unclassified (4 sources) Body mass index (BMI) 33.0-33.9, adult; 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: [Obstructive sleep apnea syndrome] Onset: 01-12-2017 01-12-2017 Chronic Unclassified (2 sources) Warfarin therapy started; 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: [FCI (current) use of anticoagulants] Onset: 05-01-2017 05-01-2017 [...] Other aftercare (20 sources) Anticoagulant effect; 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: [FCI (current) use of anticoagulants] Onset: 04-12-2019 Episodic [...] [Screening for diabetic retinopathy] Onset: 04-16-2023 Episodic Sprains and strains (20 sources) Sprain of left knee; 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: [Sprain of unspecified site of left knee, initial encounter] Onset: 10-15-2009 Episodic Unclassified (2 sources) Hypersomnia; 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: [Hypersomnia, unspecified] Onset: 01-05-2017 01-05-2017 Episodic Results Test Name Value Interpretation Reference Range Facil ity Vital Signs Date Time Vital Sign Value Performing Clinician Facility 09-23-2023 09:05-0500 Body weight 89.81 kg Whitney Jose COMMERCIAL PEST CONTROL TECHNICIAN.TILT WALL SUPERVISOR Work Phone: [facility] 09-23-2023 09:05-0500 Diastolic blood pressure 70 mm[Hg] Whitney Jose COMMERCIAL PEST CONTROL TECHNICIAN.TILT WALL SUPERVISOR Work Phone: [facility] 09-23-2023 09:05-0500 Heart rate 83 /min Whitney Jose COMMERCIAL PEST CONTROL TECHNICIAN.TILT WALL SUPERVISOR Work Phone: [facility] 09-23-2023 09:05-0500 SaO2% (BldA) [Mass fraction] 97 % Whitney Jose COMMERCIAL PEST CONTROL TECHNICIAN.TILT WALL SUPERVISOR Work Phone: [facility] 09-23-2023 09:05-0500 Systolic blood pressure 128 mm[Hg] Whitney Jose COMMERCIAL PEST CONTROL TECHNICIAN.TILT WALL SUPERVISOR Work Phone: [facility] 05-12-2023 08:54-0400 Body weight 87.54 kg Whitney Jose COMMERCIAL PEST CONTROL TECHNICIAN.TILT WALL SUPERVISOR Work Phone: [facility] 05-12-2023 08:54-0400 Diastolic blood pressure 78 mm[Hg] Whitney Jose COMMERCIAL PEST CONTROL TECHNICIAN.TILT WALL SUPERVISOR Work Phone: [facility] 05-12-2023 08:54-0400 Heart rate 82 /min Whitney Jose COMMERCIAL PEST CONTROL TECHNICIAN.TILT WALL SUPERVISOR Work Phone: [facility] 05-12-2023 08:54-0400 SaO2% (BldA) [Mass fraction] 98 % Whitney Jose COMMERCIAL PEST CONTROL TECHNICIAN.TILT WALL SUPERVISOR Work Phone: [facility] 05-12-2023 08:54-0400 Systolic blood pressure 134 mm[Hg] Whitney Jose COMMERCIAL PEST CONTROL TECHNICIAN.TILT WALL SUPERVISOR Work Phone: [facility] 04-16-2023 07:09-0400 Body weight 88.45 kg Nicolleallen Millers COMMERCIAL PEST CONTROL TECHNICIAN.SALES ADVISOR Work Phone: [facility] 04-16-2023 07:09-0400 Diastolic blood pressure 80 mm[Hg] Nicolle Tang COMMERCIAL PEST CONTROL TECHNICIAN.SALES ADVISOR Work Phone: [facility] 04-16-2023 07:09-0400 Heart rate 80 /min Nicolle Tang COMMERCIAL PEST CONTROL TECHNICIAN.SALES ADVISOR Work Phone: [facility] 04-16-2023 07:09-0400 Respiratory rate 16 /min Nicolle Tang COMMERCIAL PEST CONTROL TECHNICIAN.SALES ADVISOR Work Phone: [facility] 04-16-2023 07:09-0400 SaO2% (BldA) [Mass fraction] 98 % Nicolle Tang COMMERCIAL PEST CONTROL TECHNICIAN.SALES ADVISOR Work Phone: [facility] 04-16-2023 07:09-0400 Systolic blood pressure 120 mm[Hg] Nicolle Tang COMMERCIAL PEST CONTROL TECHNICIAN.SALES ADVISOR Work Phone: [facility] 04-03-2023 12:28-0400 Body temperature 96.4 [degF] Joon Reed MD Work Phone: [facility] 04-03-2023 12:28-0400 Body weight 91.63 kg Joon Reed MD Work Phone: [facility] 04-03-2023 12:28-0400 Diastolic blood pressure 83 mm[Hg] Joon Reed MD Work Phone: [facility] 04-03-2023 12:28-0400 Heart rate 86 /min Joon Reed MD Work Phone: [facility] 04-03-2023 12:28-0400 Respiratory rate 18 /min Joon Reed MD Work Phone: [facility] 04-03-2023 12:28-0400 SaO2% (BldA) [Mass fraction] 96 % Joon Reed MD Work Phone: [facility] 04-03-2023 12:28-0400 Systolic blood pressure 149 mm[Hg] Joon Reed MD Work Phone: [facility] 03-31-2023 09:09-0400 Body weight 91.17 kg Whitney Jose COMMERCIAL PEST CONTROL TECHNICIAN.TILT WALL SUPERVISOR Work Phone: [facility] 03-31-2023 09:09-0400 Diastolic blood pressure 72 mm[Hg] Whitney Jose COMMERCIAL PEST CONTROL TECHNICIAN.TILT WALL SUPERVISOR Work Phone: [facility] 03-31-2023 09:09-0400 Heart rate 81 /min Whitney Jose COMMERCIAL PEST CONTROL TECHNICIAN.TILT WALL SUPERVISOR Work Phone: [facility] 03-31-2023 09:09-0400 SaO2% (BldA) [Mass fraction] 97 % Whitney Jose COMMERCIAL PEST CONTROL TECHNICIAN.TILT WALL SUPERVISOR Work Phone: [facility] 03-31-2023 09:09-0400 Systolic blood pressure 128 mm[Hg] Whitney Jose COMMERCIAL PEST CONTROL TECHNICIAN.TILT WALL SUPERVISOR Work Phone: [facility] 12-26-2022 11:33-0500 Body temperature 96.91 [degF] Joon Reed MD Work Phone: [facility] 12-26-2022 11:33-0500 Body weight 90.27 kg Joon Reed MD Work Phone: [facility] 12-26-2022 11:33-0500 Diastolic blood pressure 78 mm[Hg] Joon Reed MD Work Phone: [facility] 12-26-2022 11:33-0500 Heart rate 91 /min Joon Reed MD Work Phone: [facility] 12-26-2022 11:33-0500 Respiratory rate 18 /min Joon Reed MD Work Phone: [facility] 12-26-2022 11:33-0500 SaO2% (BldA) [Mass fraction] 97 % Joon Reed MD Work Phone: [facility] 03-03-2023 11:33-0500 Systolic blood pressure 124 mm[Hg] Joon Reed MD Work Phone: [facility] 12-04-2022 10:57-0500 Body temperature 98.4 [degF] Daron Singh MD Work Phone: [facility] 12-04-2022 10:57-0500 Body weight 92.81 kg Daron Singh MD Work Phone: [facility] 12-04-2022 10:57-0500 Diastolic blood pressure 78 mm[Hg] Daron Singh MD Work Phone: [facility] 12-04-2022 10:57-0500 Heart rate 90 /min Daron Singh MD Work Phone: [facility] 12-04-2022 10:57-0500 Respiratory rate 18 /min Daron Singh MD Work Phone: [facility] 12-04-2022 10:57-0500 SaO2% (BldA) [Mass fraction] 97 % Daron Singh MD Work Phone: [facility] 12-04-2022 10:57-0500 Systolic blood pressure 142 mm[Hg] Daron Singh MD Work Phone: [facility] 07-01-2022 11:03-0400 Body weight 88 kg Joon Reed MD Work Phone: [facility] 07-01-2022 11:03-0400 Diastolic blood pressure 82 mm[Hg] Joon Reed MD Work Phone: [facility] 07-01-2022 11:03-0400 Heart rate 76 /min Joon Reed MD Work Phone: [facility] 07-01-2022 11:03-0400 SaO2% (BldA) [Mass fraction] 96 % Joon Reed MD Work Phone: [facility] 07-01-2022 11:03-0400 Systolic blood pressure 142 mm[Hg] Joon Reed MD Work Phone: [facility] 05-06-2022 08:43-0400 Body weight 88.45 kg Xi Haagen COMMERCIAL PEST CONTROL TECHNICIAN.TILT WALL SUPERVISOR Work Phone: [facility] 05-06-2022 08:43-0400 Diastolic blood pressure 80 mm[Hg] Xi Haagen COMMERCIAL PEST CONTROL TECHNICIAN.TILT WALL SUPERVISOR Work Phone: [facility] 05-06-2022 08:43-0400 Heart rate 79 /min Xi Haagen COMMERCIAL PEST CONTROL TECHNICIAN.TILT WALL SUPERVISOR Work Phone: [facility] 05-06-2022 08:43-0400 Respiratory rate 18 /min Xi Haagen COMMERCIAL PEST CONTROL TECHNICIAN.TILT WALL SUPERVISOR Work Phone: [facility] 05-06-2022 08:43-0400 SaO2% (BldA) [Mass fraction] 96 % Xi Haagen COMMERCIAL PEST CONTROL TECHNICIAN.TILT WALL SUPERVISOR Work Phone: [facility] 05-06-2022 08:43-0400 Systolic blood pressure 134 mm[Hg] Xi Haagen COMMERCIAL PEST CONTROL TECHNICIAN.TILT WALL SUPERVISOR Work Phone: [facility] 03-25-2022 16:03-0400 Diastolic blood pressure 70 mm[Hg] Joon Reed MD Work Phone: [facility] 03-25-2022 16:03-0400 Systolic blood pressure 114 mm[Hg] Joon Reed MD Work Phone: [facility] 03-25-2022 15:20-0400 Body weight 88 kg Joon Reed MD Work Phone: [facility] 03-25-2022 15:20-0400 Heart rate 83 /min Joon Reed MD Work Phone: [facility] 03-25-2022 15:20-0400 SaO2% (BldA) [Mass fraction] 97 % Joon Reed MD Work Phone: [facility] 01-17-2022 11:10-0400 Diastolic blood pressure 64 mm[Hg] Joon Reed MD Work Phone: [facility] 01-17-2022 11:10-0400 Systolic blood pressure 112 mm[Hg] Joon Reed MD Work Phone: [facility] 01-17-2022 10:26-0400 Body weight 84.82 kg Joon Reed MD Work Phone: [facility] 01-17-2022 10:26-0400 Heart rate 84 /min Joon Reed MD Work Phone: [facility] 08-17-2017 09:37-0400 BP Diastolic 68 mm[Hg] [facility] Work Phone: 08-17-2017 09:37-0400 BP Systolic 130 mm[Hg] [facility] Work Phone: 08-17-2017 09:37-0400 Pulse (Heart Rate) 52 /min [facility] Work Phone: 08-17-2017 09:37-0400 Respiratory Rate 20 /min [facility] Work Phone: 08-10-2017 10:12-0400 BMI (Body Mass Index) 31.44 kg/m2 [facility] Work Phone: 08-10-2017 10:12-0400 Body Temperature 98.7 [degF] [facility] Work Phone: 08-10-2017 10:12-0400 Height 172.72 cm [facility] Work Phone: 08-10-2017 10:12-0400 Weight 93.8 kg [facility] Work Phone: Encounters Encounter Date Encounter Type Care Provider Facility Start: 12-14-2023 Telephone encounter Joon collins MD Work Phone: [facility] [place] Procedures Date Procedure Procedure Detail Performing Clinician Start: 12-04-2022 Urnls dip stick/tabl et rgnt auto w/o microscopy Arina Alvares PA-C Work Phone: Start: 05-06-2022 2019 CORONAVIRUS Orville Worley COMMERCIAL PEST CONTROL TECHNICIAN.TILT WALL SUPERVISOR Work Phone: Start: 03-25-2022 Hemoglobin A1c/Hemoglobin.total in [...] as indicated) & Follow up Leeanna Mascorro TILT WALL SUPERVISOR Work Phone: Start: 01-05-2017 End: 01-16-2017 DMB Leeanna Perales BIOCHEMISTRY PROFESSOR Work Phone: Start: 01-05-2017 End: 01-16-2017 Follow Up Appt 2 months Leeanna valentine TILT WALL SUPERVISOR Work Phone: Start: 01-05-2017 End: 01-16-2017 Pulmonary Function Test - complete Leeanna Mascorro TILT WALL SUPERVISOR Work Phone: Start: 01-05-2017 End: 01-16-2017 Pulmonary stress test/simple Leeanna Mascorro TILT WALL SUPERVISOR Work Phone: Plan of Treatment Date Care Activity Detail Author Start: 10-07-2024 Annual PCP Team Millwright Helper jr Disease Visit Annual PCP Team Chronic Disease Visit [facility] Start: 09-23-2024 Annual PCP Team Millwright Helper jr Disease Visit Annual PCP Team Chronic Disease Visit [facility] Start: 09-23-2024 BP Controlled (<130/80) BP Controlle d (<130/80) [facility] Start: 09-23-2024 Covid-19 Vaccine (#1) Covid-19 Vacci ne (#1) [facility] Immunizations Immunization Date Immunization Notes Care Provider Lyudmila steven 08-19-2019 influenza virus vacc ine, unspecified formulation Joon Reed MD Work Phone: [facility] 10-01-2012 pneumococcal polysaccharide vaccine, 23 valent Joon Reed MD Work Phone: [facility] 10-03-2011 tetanus toxoid, redu fe diphtheria toxoid, and acellular pertussis vaccine, adsorbed Joon Reed MD Work Phone: [facility] Payers Date Payer Category Payer Medicare [employer] [facility] [place] [id number] 2021-Present [phone] [place] [id number] [facility] [place] [id number] 2021 Medicare [employer] [facility] [id number] 2021-Present [id number] [place] [id number] O [id number] 2021 Unknown [id number] Social History Date Type Detail Facility Start: 02-02-2018 End: 07-01-2022 Tobacco smoking status NHIS Never smoked tobacco [facility] Start: 11-01-2021 End: 10-07-2023 Alcohol intake Current non-drinker of alcohol (finding) [facility] Start: 1945 Sex Assigned At Not on file C [facility] Start: 01-07-2022 End: 07-01-2022 Exposure to SARS-CoV-2 (event) Not sure [facility] Start: 02-02-2018 End: 07-01-2022 Tobacco use and exposure Smokeless tobacco non-user [facility] Start: 03-31-2023 End: 04-16-2023 History of Social function [facility] Work Phone: Start: 03-31-2023 End: 04-16-2023 Tobacco use panel [facility] Work Phone: Adult Depression Screening Assessment 0 [facility] Work Phone: Medical Equipment Procedure Code Equipment Code Equipment Origin al Text Equipment Identifier Dates Start: 10-02-2015 End: 06-22-2023 Clinical Notes 09-29-2005 to 12-15-2023 Telephone Encounter - Yuko Rogers RN - 12/15/2023 8:24 AM ESTTelephone Encounter - Nicolle Tang APRN.SALES ADVISOR - 12/14/2023 4:46 PM Whitney Echeverria APRN.CNP - 09/23/2023 9:20 AM EST Note Date & Type Note Facility 12-15-2023 Miscellaneous Notes Consults, office notes, and demographic faxed over to [facility] as requested. Patient notified that paperwork faxed. Patient voices understanding. Yuko Rogers RN Consult placed, see below Patient's daughter Brooke calls and states that patient continues to have a lot of back pain. Daughter is asking if provider can write a referral to spine doctor and fax referral to [facility] [phone]. Please review and advise, Yuko Rogers RN documented in this encounter [facility] 10-07-2023 Note HNO ID: [id number] Author: JOON REED MD Service: ? Author Type: Physician Type: Progress Notes Filed: 11/10/2023 13:30 Note Text: This note was created using [email or web address]. Subjective Keisha Red is a 78 year [...] Right shoulder s/p fall with reduction at [facility] Type II or unspecified type diabetes [...] hours as needed for wheezing/shortness of breath. 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 ([facility] pulmonology) blood sugar diagnostic (BLOOD GLUCOSE [...] Abs Lymph 1.00 - 4.00 k/uL 1.63 Hudson% % 6.1 Abs Hudson <0.87 k/uL 0.42 Eosin% % 4.6 (more content not included)... [facility] 09-30-2023 Miscellaneous Notes Below left on identified vm. Liza Santana LPN Looks like she has [...] asking for something to help. Patient uses [facility] for her pharmacy. Please advise documented in this encounter [facility] 09-23-2023 Note HNO ID: [id number] Author: Whitney Garcia APRN.DOMINGO Service: ? Author [...] hours as needed for wheezing/shortness of breath. 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 Do all this for 180 days. triamcinolone acetonide (KENALOG) 0.1 % cream Apply 1 application to affected area three times daily as needed. For rash on extremities and leg budesonide-formoterol (SYMBICORT) 160-4.5 mcg/actuation inhaler Inhale 2 Puffs as instructed twice daily. ([facility] pulmonology) methocarbamol (ROBAXIN) 500 mg tablet [...] Hemorrhagic Disorder Due to Extrinsic Circulating Anticoagulants ([facility]) - 09/23/2023 Ulcer of Right Lower Extremity With Fat Layer Exposed ([facility]) - 07/26/2023 Pulmonary Hypertension ([facility]) - 05/03/2023 Ramesh (Obstructive Sleep Apnea) - 01/21/2021 Pacemaker - 01/21/2021 Bilateral Carpal Tunnel Syndrome - 01/21/2021 Atrial Flutter ([facility]) - 04/12/2019 Anticoagulated On Coumadin - 04/12/2019 Severe Low Back Pain - 12/28/2018 Ddd (Degenerative Disc Disease), Lumbar Comment: Dr. Agudelo Muscle Spasm Rotator Cuff Tear - 05/06/2011 Diabetes Mellitus Type 2, Controlled, Without Complications ([facility]) Hyperlipemia - 12/19/2010 Back Strain, [...] round, and reacti (more content not included)... [facility] 09-23-2023 History of Present illness [...] hours as needed for wheezing/shortness of breath. 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 Do all this for 180 days. triamcinolone acetonide (KENALOG) 0.1 % cream Apply 1 application to affected area three times daily as needed. For rash on extremities and leg budesonide-formoterol (SYMBICORT) 160-4.5 mcg/actuation inhaler Inhale 2 Puffs as instructed twice daily. ([facility] pulmonology) methocarbamol (ROBAXIN) 500 mg tablet [...] Hemorrhagic Disorder Due to Extrinsic Circulating Anticoagulants ([facility]) - 09/23/2023 Ulcer of Right Lower Extremity With Fat Layer Exposed ([facility]) - 07/26/2023 Pulmonary Hypertension ([facility]) - 05/03/2023 Ramesh (Obstructive Sleep Apnea) - 01/21/2021 Pacemaker - 01/21/2021 Bilateral Carpal Tunnel Syndrome - 01/21/2021 Atrial Flutter ([facility]) - 04/12/2019 Anticoagulated On Coumadin - 04/12/2019 Severe Low Back Pain - 12/28/2018 Ddd (Degenerative Disc Disease), Lumbar Comment: Dr. Agudelo Muscle Spasm Rotator Cuff Tear - 05/06/2011 Diabetes Mellitus Type 2, Controlled, Without Complications ([facility]) Hyperlipemia - 12/19/2010 Back Strain, [...] activity was identified. 09/23/2023 by Whitney Garcia APRN.TILT WALL SUPERVISOR Medical Decision Making: Problems: Moderate: 2+ stable [...] to improve, for Keep next scheduled appointment.. ENEDINA Klein documented in this encounter [facility] 09-18-2023 Miscellaneous Notes Last office visit: 06/22/23 Next appointment scheduled: 09/23/23 Patient has been identified by name and date of : Yes Requested Prescriptions Pending Prescriptions Disp Refills albuterol HFA (PROAIR HFA) 90 mcg/actuation inhaler 1 Each 3 Sig: Inhale 2 Puffs as instructed every 4 hours as needed for wheezing/shortness of breath. 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 No need to notify patient. Mattie Mosley documented in this encounter [facility] 09-10-2023 Miscellaneous Notes Left a message with information listed below. Maddie Rojo LPN If her back pain is a 10 of 10 and not being helped with medications she should go to the emergency department for further evaluation and treatment. Patient calling to ask if provider gave an answer. Went over notes below from Nicolle Tang BIOCHEMISTRY PROFESSOR with understanding. Patient is going to call [facility] and discuss with them. Attempted to contact [...] the TENS unit electrodes to [facility], not sure if they can provide that [...] old & worn out. Pt uses [facility] in [place]. Please notify pt of response. Elvia Orellana LPN documented in this encounter [facility] 07-16-2023 Miscellaneous Notes ok Patient calling to request order for new glucometer. Her old one is no longer working. [facility] [place]. Patient has been identified by name [...] Taylor Ruffin, RN documented in this encounter [facility] 07-14-2023 Miscellaneous Notes Patient has been identified [...] advise. Brooke Cooper documented in this encounter [facility] 06-22-2023 Note HNO ID: [id number] Author: Joon Reed MD Service: ? Author Type: Physician Type: Progress Notes Filed: 07/26/2023 9:47 PM Note Text: This note was created using Vinopolister. Subjective Keisha Red is a 78 year [...] on foot) down to the nerves--working with advisor consultant to heal. Still wrapped. They applied placenta [...] Right shoulder s/p fall with reduction at [facility] Type II or unspecified type diabetes mellitus without mention of complication, not stated as uncontrolled Unspecified asthma(493.90) Unspecified essential hypertension Current Outpatient Medications Medication Sig albuterol HFA (PROAIR HFA) 90 mcg/actuation inhaler Inhale 2 Puffs as instructed every 4 hours as needed for wheezing/shortness of breath. 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 [facility] 06-22-2023 Miscellaneous Notes Faxed request to [employer] to have compliance report faxed to office [...] Yuko Rogers RN documented in this encounter [facility] 05-12-2023 Note HNO ID: [id number] Author: Whitney Garcia APRN.TILT WALL SUPERVISOR Service: ? Author Type: Nurse Practitioner Type: Progress Notes Filed: 05/12/2023 10:43 AM Note Text: JESSICA Red is a 78 year old female here today for an ER follow up. Chief Complaint Patient presents with: Wound Check: 05/02/2023 left foot burn from a plate of hot chicken sliding of plate 2 week ago seen in [facility] ER on 05/09/23. Was treated with cephalexin 500mg every 6 hours. HIREN Red is a 78 year old female established patient of Joon Reed MD. She presents today for an ER follow up. Seen in the ER at [facility] for an injury sustained on 05/02. [...] hours as needed for wheezing/shortness of breath. 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 [facility] 05-12-2023 Instructions Whitney Garcia APRN.TILT WALL SUPERVISOR - 05/12/2023 9:09 AM EDT Take your [...] the Keflex, start doxycycline for infection. See advisor consultant (foot doctor). documented in this encounter [facility] 05-12-2023 History of Present illness Narrative Images from the original note were not included. SUBJECTIVE Keisha Red is a 78 year old female here today for an ER follow up. Chief Complaint Patient presents with: Wound Check: 05/02/2023 left foot burn from a plate of hot chicken sliding of plate 2 week ago seen in [facility] ER on 05/09/23. Was treated with cephalexin 500mg every 6 hours. HPI Keisha Red is a 78 year old female established patient of Joon Reed MD. She presents today for an ER follow up. Seen in the ER at [facility] for an injury sustained on 05/02. [...] hours as needed for wheezing/shortness of breath. 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 ENEDINA Klein documented in this encounter [facility] 05-06-2023 Miscellaneous Notes The following approved medication [...] the patient as she uses [facility] in [place] documented in this encounter [facility] 04-16-2023 Note HNO ID: [id number] Author: Nicolle Tang APRN.SALES ADVISOR Service: ? Author Type: Nurse Specialist Type: Progress Notes Filed: 04/16/2023 7:37 AM Note Text: SUBJECTIVE: SPIROMETRY Never done SHINGRIX VACCINE(1 of 2) Never done PNEUMOCOCCAL: 65+(2 - PCV) due on 10/01/2013 DIABETIC FOOT EXAM due on 03/11/2022 URINE ALBUMIN:CREATININE RATIO due on 10/16/2022 DILATED RETINAL EXAM due on 01/27/2023 HPI Keisha Red is a 78 year [...] 03/25/2022 6.0 ) She reports going to [facility] for eye exams. Does not have a advisor consultant currently. No complaints with her feet. Declines [...] Take 2 table (more content not included)... [facility] 04-16-2023 History of Present illness [...] 03/25/2022 6.0 ) She reports going to [facility] for eye exams. Does not have a advisor consultant currently. No complaints with her feet. Declines [...] hours as needed for wheezing/shortness of breath. 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 Controlled type 2 diabetes mellitus without complication, without long-term current use of insulin (HCC) - ICD9: 250.00, ICD10: E11.9 Nicolle Tang APRN.SALES ADVISOR Keep 3 mo follow up MD Nicolle Mcgraw APRN.STEPHANIE Medical Decision Making: Problems: Low: Acute, uncomplicated illness or injury Risk: Moderate: Drug management Medical Decision Making Level: 3 - Low documented in this encounter [facility] 04-15-2023 Miscellaneous Notes Patient call in for [...] out of chair anyways. Protocols used: Chest Uzlt-[id number]-SG, Breathing Nmuqnebbfc-KYMJT-UM documented in this encounter [facility] 04-03-2023 Note HNO ID: [id number] Author: Joon Reed MD Service: ? Author Type: Physician Type: Progress Notes Filed: 05/03/2023 11:38 PM Note Text: This note was created using [email or web address]. Subjective Keisha Red is a 78 year [...] Right shoulder s/p fall with reduction at [facility] Type II or unspecified type diabetes [...] hours as needed for wheezing/shortness of breath. 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 Musculoskeletal: (more content not included)... [facility] 04-03-2023 History of Present illness Narrative This note was created using SnapDash. Subjective Keisha Red is a 78 year [...] Right shoulder s/p fall with reduction at [facility] Type II or unspecified type diabetes [...] hours as needed for wheezing/shortness of breath. 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 Judgment: Judgment normal. Labs from [facility] ER evaluation reviewed. Assessment and Plan Encounter Diagnosis ICD-10-CM 1. Controlled type 2 diabetes mellitus without complication, without long-term current use of insulin (HCC) E11.9 metFORMIN ER (GLUCOPHAGE XR) 500 mg [...] PANEL BASIC 7. Atrial flutter, unspecified type ([facility]) I48.92 8. Pacemaker Z95.0 9. Essential hypertension I10 10. Mild intermittent asthma without complication J45.20 11. RAMESH (obstructive sleep apnea) G47.33 12. 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 Anticoagulated on Coumadin Z79.01 14. Pulmonary hypertension ([facility]) I27.20 Follows with [facility] pulmonology Above issues addressed with patient. Patient [...] the date of the service which included jriz-[id number] patient care, completing clinical documentation, performing a medically appropriate examination, counseling and educating the patient/family/caregiver, ordering medications, tests, or procedures, and communicating results to the patient/family/caregiver. Joon Reed MD documented in this encounter [facility] 03-31-2023 Note HNO ID: [id number] Author: Whitney Garcia APRN.TILT WALL SUPERVISOR Service: ? Author Type: Nurse Practitioner Type: [...] hours as needed for wheezing/shortness of breath. 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 Conjunctiva/scl (more content not included)... [facility] 03-31-2023 Instructions Whitney Garcia APRN.DOMINGO [...] try a steroid. documented in this encounter [facility] 03-31-2023 History of Present illness Narrative Images from [...] hours as needed for wheezing/shortness of breath. 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 03/31/2023 by Whitney Garcia APRN.TILT WALL SUPERVISOR - OXYCODONE-ACETAMINOPHEN 5 MG-325 MG TABLET 3. [...] to improve, for Keep next scheduled appointment.. ENEDINA Klein documented in this encounter [facility] 03-26-2023 Miscellaneous Notes Patient has been identified [...] Taylor Ruffin RN documented in this encounter [facility] 03-17-2023 Note HNO ID: [id number] Author: Souleymane Shepard APRN.CNP Service: ? Author Type: Nurse Practitioner Type: [...] to exit. Family member will proceed to [facility] for further evaluation care. Caregiver verbalized understand agrees with plan of care. Souleymane Shepard APRN.CNP [facility] 12-26-2022 Miscellaneous Notes Electronic PA completed for cyclobenzaprine. This was approved form 12/12/22 to 12/27/23. documented in this encounter [facility] 12-26-2022 Note HNO ID: [id number] Author: Joon Reed MD Service: ? Author Type: Physician Type: Progress Notes Filed: 01/26/2023 12:44 AM Note Text: This note was created using SnapDash. Subjective Keisha Red is a 77 year [...] Right shoulder s/p fall with reduction at [facility] Type II or unspecified type diabetes [...] hours as needed for wheezing/shortness of breath. 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 [facility] 12-26-2022 History of Present illness Narrative This note was created using SnapDash. Subjective Keisha Red is a 77 year [...] Right shoulder s/p fall with reduction at [facility] Type II or unspecified type diabetes [...] hours as needed for wheezing/shortness of breath. 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 Aware PCP is out of office today and patient can not make the appt time offered for BIOCHEMISTRY PROFESSOR. Advised patient that she can walk in at [facility] for evaluation to see if she has UTI. Patient plans to do that today. documented in this encounter [facility] 11-20-2022 Miscellaneous Notes Patient has been identified [...] Cecilia Rojo Pss documented in this encounter [facility] 09-15-2022 Miscellaneous Notes Last filled February. Uses [...] Omaira Ortega Pss documented in this encounter [facility] 07-28-2022 Miscellaneous Notes Patient calling asking for new glucose meter, one she had stopped working. She does not know which meter is covered by her insurance. Pending generic meter, strips, lancets to file. Patient uses [facility] for her pharmacy. Aware PCP is out [...] Tamy Donis LPN documented in this encounter [facility] 07-01-2022 History of Present illness Narrative This note was created using [email or web address]. Subjective Keisha Red is a 77 year [...] Right shoulder s/p fall with reduction at [facility] Type II or unspecified type diabetes [...] hours as needed for wheezing/shortness of breath. 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 Reports something is not right. [...] Maddie Rojo LPN documented in this encounter [facility] 06-16-2022 Miscellaneous Notes Daughter calling, mother seems [...] AND [3] new-onset Protocols used: Confusion - Lpecrobt-AXTCS-BP documented in this encounter [facility] 05-13-2022 Miscellaneous Notes Noted. Xi Worley APRN.DOMINGO x3 attempt. Unable to reach patient. Contacted [facility] [place] & confirmed with copier technician patient picked up medication 05/11/22 @ [...] Did patient receive this message? Xi Worley APRN.DOMINGO TC to pt. LM to call office, ask for triage nurse to get results. Miguelina Olmstead LPN Lets go ahead and cover her with antibiotics. I went ahead and sent sarah into the pharmacy. I also sent some tessalon perles for cough -- she can do 1-2 of these three times daily as needed for cough. Xi Worley APRN.DOMINGO Xi Worley APRN.CNP 05/06/22 5:35 PM Note [...] how patient is feeling today. Xi Worley APRN.CNP documented in this encounter [facility] 05-07-2022 Miscellaneous Notes See other TE. Curtis Yi LPN Can please let patient know that the chest xray did not show any pneumonia. Xi Worley APRN.CNP Pt calling for results from CXR that was completed this am. Elvia Orellana LPN documented in this encounter [facility] 05-06-2022 Miscellaneous Notes See office notes. Xi Worley APRN.DOMINGO Pt called in and states wheezing, coughing x 3 days. No apt available today with pcp/team/Int med. Apt booked with FP. Maddie Rojo LPN documented in this encounter [facility] 05-06-2022 Instructions Xi Worley APRN.DOMINGO - 05/06/2022 9:05 AM EDT 1. Get the xray. 2. Start the prednisone -- 2 pills daily X 5 days. 3. Watch sugars. Let us know if getting high. 4. Push fluids. 5. Let us know if not improving or getting worse. documented in this encounter [facility] 05-06-2022 History of Present illness Narrative This [...] Right shoulder s/p fall with reduction at [facility] Type II or unspecified type diabetes [...] hours as needed for wheezing/shortness of breath. 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 Subjective Keisha Red is a 77 year [...] Right shoulder s/p fall with reduction at [facility] Type II or unspecified type diabetes mellitus without mention of complication, not stated as uncontrolled Unspecified asthma(493.90) Unspecified essential hypertension Current Outpatient Medications Medication Sig albuterol HFA (PROAIR HFA) 90 mcg/actuation inhaler Inhale 2 Puffs as instructed every 4 hours as needed for wheezing/shortness of breath. 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 Encounter for long-term current use of medication - ICD9: V58.69, ICD10: Z79.899 - CBC 6. Atrial flutter, unspecified type (HCC) - ICD9: 427.32, ICD10: I48.92 stable on meds Joon Reed MD documented in this encounter [facility] 01-17-2022 History of Present illness Narrative This note was created using Vinopolister. Subjective Keisha Red is a 76 year [...] Right shoulder s/p fall with reduction at [facility] Type II or unspecified type diabetes [...] hours as needed for wheezing/shortness of breath. 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 Subjective Keisha Red is a 76 year old female. Patient presents with: Recheck: 2 month follow up SUBJECTIVE: Keisha Red is a 76 year old year old lady here today for 2 month follow up appointment for review of medical conditions. Overall doing okay. Back pain with weather changes. Goes to [facility] for INRs. Not following with manager heavy equipment. Has not gotten COVID vaccine. Will see urologist in [place] next week. Will see eye doctor soon. [...] Right shoulder s/p fall with reduction at [facility] Type II or unspecified type diabetes mellitus without mention of complication, not stated as uncontrolled Unspecified asthma(493.90) Unspecified essential hypertension Current Outpatient Medications Medication Sig oxyCODONE-acetaminophen (PERCOCET) 5-325 mg tablet Take 5-325 mg by mouth twice daily. As needed albuterol HFA (PROAIR HFA) 90 mcg/actuation inhaler Inhale 2 Puffs as instructed every 4 hours as needed for wheezing/shortness of breath. 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) cyclobenzaprine (FLEXERIL) 10 mg tablet Take [...] 4 - Moderate documented in this encounter [facility] documented as of this encounter (statuses as of 02/03/2022) [facility] History of Past illness Narrative* Problem Noted Date Resolved Date Contact dermatitis and other eczema 09/29/2005 09/16/2021 Contact dermatitis and other eczema, due to unspecified cause 09/16/2021 documented as of this encounter (statuses as of 03/31/2022) [facility] History of Past illness Narrative* Problem Noted Date Resolved Date Contact dermatitis and other eczema 09/29/2005 09/16/2021 Contact dermatitis and other eczema, due to unspecified cause 09/16/2021 documented as of this encounter (statuses as of 04/10/2022) [facility] History of Past illness Narrative* Problem Noted Date Resolved Date Contact dermatitis and other eczema 09/29/2005 09/16/2021 Contact dermatitis and other eczema, due to unspecified cause 09/16/2021 documented as of this encounter (statuses as of 04/18/2022) [address]05-[address] History of Past illness Narrative* Problem Noted Date Resolved Date Contact dermatitis and other eczema 09/29/2005 09/16/2021 Contact dermatitis and other eczema, due to unspecified cause 09/16/2021 documented as of this encounter (statuses as of 05/06/2022) [facility] History of Past illness Narrative* Problem Noted Date Resolved Date Contact dermatitis and other eczema 09/29/2005 09/16/2021 Contact dermatitis and other eczema, due to unspecified cause 09/16/2021 documented as of this encounter (statuses as of 05/06/2022) [facility] History of Past illness Narrative* Problem Noted Date Resolved Date Contact dermatitis and other eczema 09/29/2005 09/16/2021 Contact dermatitis and other eczema, due to unspecified cause 09/16/2021 documented as of this encounter (statuses as of 05/07/2022) [facility] History of Past illness Narrative* Problem Noted Date Resolved Date Contact dermatitis and other eczema 09/29/2005 09/16/2021 Contact dermatitis and other eczema, due to unspecified cause 09/16/2021 documented as of this encounter (statuses as of 05/13/2022) [facility] History of Past illness Narrative* Problem Noted Date Resolved Date Contact dermatitis and other eczema 09/29/2005 09/16/2021 Contact dermatitis and other eczema, due to unspecified cause 09/16/2021 documented as of this encounter (statuses as of 06/17/2022) [facility] History of Past illness Narrative* Problem Noted Date Resolved Date Contact dermatitis and other eczema 09/29/2005 09/16/2021 Contact dermatitis and other eczema, due to unspecified cause 09/16/2021 documented as of this encounter (statuses as of 07/28/2022) [facility] History of Past illness Narrative* Problem Noted Date Resolved Date Contact dermatitis and other eczema 09/29/2005 09/16/2021 Contact dermatitis and other eczema, due to unspecified cause 09/16/2021 documented as of this encounter (statuses as of 08/21/2022) [place] [address]-05-2005 History of Past illness Narrative* Problem Noted Date Resolved Date Contact dermatitis and other eczema 09/29/2005 09/16/2021 Contact dermatitis and other eczema, due to unspecified cause 09/16/2021 documented as of this encounter (statuses as of 09/16/2022) [address] History of Past illness Narrative* Problem Noted Date Resolved Date Contact dermatitis and other eczema 09/29/2005 09/16/2021 Contact dermatitis and other eczema, due to unspecified cause 09/16/2021 documented as of this encounter (statuses as of 11/20/2022) [facility] History of Past illness Narrative* Problem Noted Date Resolved Date Contact dermatitis and other eczema 09/29/2005 09/16/2021 Contact dermatitis and other eczema, due to unspecified cause 09/16/2021 documented as of this encounter (statuses as of 12/04/2022) [facility] History of Past illness Narrative* Problem Noted Date Resolved Date Contact dermatitis and other eczema 09/29/2005 09/16/2021 Contact dermatitis and other eczema, due to unspecified cause 09/16/2021 documented as of this encounter (statuses as of 12/04/2022) [facility] History of Past illness Narrative* Problem Noted Date Resolved Date Contact dermatitis and other eczema 09/29/2005 09/16/2021 Contact dermatitis and other eczema, due to unspecified cause 09/16/2021 documented as of this encounter (statuses as of 12/26/2022) [facility] History of Past illness Narrative* Problem Noted Date Resolved Date Contact dermatitis and other eczema 09/29/2005 09/16/2021 Contact dermatitis and other eczema, due to unspecified cause 09/16/2021 documented as of this encounter (statuses as of 01/26/2023) [facility] History of Past illness Narrative* Problem Noted Date Resolved Date Contact dermatitis and other eczema 09/29/2005 09/16/2021 Contact dermatitis and other eczema, due to unspecified cause 09/16/2021 documented as of this encounter (statuses as of 03/27/2023) [facility] History of Past illness Narrative* Problem Noted Date Resolved Date Contact dermatitis and other eczema 09/29/2005 09/16/2021 Contact dermatitis and other eczema, due to unspecified cause 09/16/2021 documented as of this encounter (statuses as of 03/31/2023) [address] History of Past illness Narrative* Problem Noted Date Resolved Date Contact dermatitis and other eczema 09/29/2005 09/16/2021 Contact dermatitis and other eczema, due to unspecified cause 09/16/2021 documented as of this encounter (statuses as of 04/16/2023) [facility] History of Past illness Narrative* Problem Noted Date Resolved Date Contact dermatitis and other eczema 09/29/2005 09/16/2021 Contact dermatitis and other eczema, due to unspecified cause 09/16/2021 documented as of this encounter (statuses as of 04/16/2023) [facility] History of Past illness Narrative* Problem Noted Date Diagnosed Date Resolved Date Contact dermatitis and other eczema 09/29/2005 09/16/2021 Contact dermatitis and other eczema, due to unspecified cause 09/16/2021 documented as of this encounter (statuses as of 05/04/2023) [facility] History of Past illness Narrative* Problem Noted Date Diagnosed Date Resolved Date Contact dermatitis and other eczema 09/29/2005 09/16/2021 Contact dermatitis and other eczema, due to unspecified cause 09/16/2021 documented as of this encounter (statuses as of 05/12/2023) [facility]12[facility]2005 History of Past illness Narrative* Problem Noted Date Diagnosed Date Resolved Date Contact dermatitis and other eczema 09/29/2005 09/16/2021 Contact dermatitis and other eczema, due to unspecified cause 09/16/2021 documented as of this encounter (statuses as of 06/03/2023) [facility]12-[facility]2005 History of Past illness Narrative* Problem Noted Date Diagnosed Date Resolved Date Contact dermatitis and other eczema 09/29/2005 09/16/2021 Contact dermatitis and other eczema, due to unspecified cause 09/16/2021 documented as of this encounter (statuses as of 06/23/2023) [facility]12-[facility]2005 History of Past illness Narrative* Problem Noted Date Diagnosed Date Resolved Date Contact dermatitis and other eczema 09/29/2005 09/16/2021 Contact dermatitis and other eczema, due to unspecified cause 09/16/2021 documented as of this encounter (statuses as of 07/15/2023) [facility]12[facility]2005 History of Past illness Narrative* Problem Noted Date Diagnosed Date Resolved Date Contact dermatitis and other eczema 09/29/2005 09/16/2021 Contact dermatitis and other eczema, due to unspecified cause 09/16/2021 documented as of this encounter (statuses as of 07/17/2023) [facility]2005 History of Past illness Narrative* Problem Noted Date Diagnosed Date Resolved Date Contact dermatitis and other eczema 09/29/2005 09/16/2021 Contact dermatitis and other eczema, due to unspecified cause 09/16/2021 documented as of this encounter (statuses as of 09/10/2023) [facility]2005 History of Past illness Narrative* Problem Noted Date Diagnosed Date Resolved Date Contact dermatitis and other eczema 09/29/2005 09/16/2021 Contact dermatitis and other eczema, due to unspecified cause 09/16/2021 documented as of this encounter (statuses as of 09/18/2023) [facility]12[facility]2005 History of Past illness Narrative* Problem Noted Date Diagnosed Date Resolved Date Contact dermatitis and other eczema 09/29/2005 09/16/2021 Obesity, unspecified 023 Last Assessment & Plan: Assessment: Body mass index is 30.11 kg/m . Contact dermatitis and other eczema, due to unspecified cause 09/16/2021 Dizziness and giddiness 08/27 documented as of this encounter (statuses as of 09/23/2023) [facility] History of Past illness Narrative* Problem Noted Date Diagnosed Date Resolved Date Contact dermatitis and other eczema 09/29/2005 09/16/2021 Obesity, unspecified 023 Last Assessment & Plan: Assessment: Body mass index is 30.11 kg/m . Contact dermatitis and other eczema, due to unspecified cause 09/16/2021 Dizziness and giddiness 08/27 documented as of this encounter (statuses as of 09/30/2023) [place] [address]-05-2005 History of Past illness Narrative* Problem Noted Date Diagnosed Date Resolved Date Contact dermatitis and other eczema 09/29/2005 09/16/2021 Obesity, unspecified 023 Last Assessment & Plan: Assessment: Body mass index is 30.11 kg/m . Contact dermatitis and other eczema, due to unspecified cause 09/16/2021 Dizziness and giddiness 08/27 documented as of this encounter (statuses as of 12/15/2023) [facility] note* Diagnosis Controlled type 2 diabetes mellitus [...] ligament, initial encounter documented in this encounter [facility] note* Diagnosis Controlled type 2 diabetes mellitus [...] ligament, initial encounter documented in this encounter [facility] note* Diagnosis Diabetes mellitus type 2, controlled, [...] Back strain, sequela documented in this encounter [facility] note* Diagnosis Controlled type 2 diabetes mellitus without complication, without long-term current use of insulin (HCC) [facility] Mild intermittent asthma with acute exacerbation- Primary Unspecified asthma, with exacerbation Viral upper respiratory tract infection Acute upper respiratory infections of unspecified site [facility] Diagnosis COVID-19 virus infection- Primary Diarrhea of infectious origin Diarrhea of presumed infectious origin Severe low back pain Lumbago DDD (degenerative disc disease), lumbar Degeneration of lumbar or lumbosacral intervertebral disc Acute pain of left knee Sprain of left knee, unspecified ligament, initial encounter [facility] Diagnosis DDD (degenerative disc disease), lumbar Degeneration of lumbar or lumbosacral intervertebral disc Acute pain of left knee Sprain of left knee, unspecified ligament, initial encounter Severe low back pain Lumbago [facility] Diagnosis Urinary frequency- Primary [facility] Diagnosis Controlled type 2 diabetes mellitus [...] malignant neoplasms, colon [facility] Diagnosis Strain of neck muscle, initial encounter- Primary Severe low back pain Lumbago DDD (degenerative disc disease), lumbar Degeneration of lumbar or lumbosacral intervertebral disc Encounter for therapeutic drug monitoring [facility] Diagnosis Back strain, subsequent encounter- Primary [...] of insulin (HCC) [facility] Diagnosis Controlled type 2 diabetes mellitus [...] pulmonary heart diseases [facility] Diagnosis Cellulitis of foot- Primary Cellulitis and abscess of foot, except toes Partial thickness burn of left foot, subsequent encounter Controlled type 2 diabetes mellitus without complication, without long-term current use of insulin (HCC) [facility] Diagnosis Back strain, sequela Severe low back pain Lumbago DDD (degenerative disc disease), lumbar Degeneration of lumbar or lumbosacral intervertebral disc [facility] Diagnosis Diabetes mellitus with no complication (HCC)- Primary Type II or unspecified type diabetes mellitus without mention of complication, not stated as uncontrolled [facility] Diagnosis DDD (degenerative disc disease), lumbar Degeneration of lumbar or lumbosacral intervertebral disc Back Strain, recurrent Sprain of unspecified site of back [facility] Diagnosis Mild intermittent asthma without complication Unspecified asthma [facility] Diagnosis Severe low back pain- Primary [...] of insulin (HCC) [facility] Diagnosis Severe low back pain- Primary Lumbago DDD (degenerative disc disease), lumbar Degeneration of lumbar or lumbosacral intervertebral disc documented in this encounter [facility] Summary Purpose Family History No Family History Records FoundNo Family History Records Found Advance Directives No Advanced Directives Records FoundDocuments on File Type Date 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 Advance Directive(s) 01/23/2021 8:35 AM Advance Directive(s) 01/11/2021 11:10 AM Reason for Referral Specialty Diagnoses / Procedures Referred By Aminata marie Referred To Contact Diagnoses Back strain, sequela Joon Reed MD [address] [place] [address] Referral ID Status Reason Start Date Expiration Date V isits Requested Visits Authorized [id number] Authorized 12/12/2022 12/27/2023 1 1 Specialty Diagnoses / Procedures Referred By Aminata marie Referred To Contact [facility] Diagnoses Back strain, subsequent encounter Muscle spasm Back strain, sequela Procedures CONSULT TO PHYSICAL THERAPY PHYSICAL THERAPY EVALUATION HIGH COMPLEX 45 MINS Nicolle Tang, COMMERCIAL PEST CONTROL TECHNICIAN.SALES ADVISOR [address] [place] [address] [facility] [address] [address] Referral ID Status Reason Start Date Expiration Date Visits Requested Visits Authorized [id number] Pending Review Auto-Generat ed Referral 04/16/2023 04/15/2024 1 1 Specialty Diagnoses / Procedures Referred By Aminata marie Ref[facility] Diagnoses Mild intermittent asthma without complication Procedures SPIROMETRY - BASELINE AND POST DILATOR BRNCDILAT RSPSE SPMTRY PRE&POST-BRNCDILAT ADMN Nicolle Tang, COMMERCIAL PEST CONTROL TECHNICIAN.SALES ADVISOR [address] [place] [address] [facility] [address] [place] [address] Referral ID Status Reason Start Date Expiration Date Visits Requested Visits Authorized [id number] Pending Review Auto-Generat ed Referral 04/16/2023 05/15/2024 1 1 Specialty Diagnoses / Procedures Referred By Aminata marie Referred To Contact Podiatry Diagnoses Cellulitis of foot Partial thickness burn of left foot, subsequent encounter Controlled type 2 diabetes mellitus without complication, without long-term current use of insulin (HCC) Procedures CONSULT TO PODIATRY OFFICE/OUTPATIENT NEW HIGH MDM 60-74 MINUTES Jose, Whitney, COMMERCIAL PEST CONTROL TECHNICIAN.TILT WALL SUPERVISOR [address] [place] [address] Referral ID Status Reason Start Date Expiration Date Visits Requested Visits Authorized [id number] Authorized PCP Requested Referral 05/12/2023 05/11/2024 1 1 Specialty Diagnoses / Procedures Referred By Contac t Referred To Contact [facility] Diagnoses Severe low back pain DDD (degenerative disc disease), lumbar Procedures CON[facility]ULT TO [facility] OFFICE/OUTPATIENT [facility] MDM 60 MINUTES Nicolle Tang, COMMERCIAL PEST CONTROL TECHNICIAN.SALES ADVISOR [address] [place] [address] Referral ID Status Reason Start Date Expiration Date Visits Requested Visits Authorized [id number] Pending Review PCP Requested Referral 12/14/2023 12/13/2024 1 1 Additional Source Comments INFORMATION SOURCE (unrecogn ized section and content) DATE CREATED AUTHOR AUTHOR'S ORGANIZ ATION 12/16/2023 [facility] Source Comments (unrecognize d section and content) In the event this informatio n is protected by the Federal Confidentiality of Alcohol and Drug Abuse Patient Records regulations: The Federal rules restrict any use of the information to criminally investigate or prosecute any alcohol or drug abuse patient.[facility] the event this information is protected by the Federal Confidentiality of Alcohol and Drug Abuse Patient Records regulations: The Federal rules restrict any use of the information to criminally investigate or prosecute any alcohol or drug abuse patient.[facility] the event this information is protected by the Federal Confidentiality of Alcohol and Drug Abuse Patient Records regulations: The Federal rules restrict any use of the information to criminally investigate or prosecute any alcohol or drug abuse patient.[facility] the event this information is protected by the Federal Confidentiality of Alcohol and Drug Abuse Patient Records regulations: The Federal rules restrict any use of the information to criminally investigate or prosecute any alcohol or drug abuse patient.[facility] the event this information is protected by the Federal Confidentiality of Alcohol and Drug Abuse Patient Records regulations: The Federal rules restrict any use of the information to criminally investigate or prosecute any alcohol or drug abuse patient.[facility] the event this information is protected by the Federal Confidentiality of Alcohol and Drug Abuse Patient Records regulations: The Federal rules restrict any use of the information to criminally investigate or prosecute any alcohol or drug abuse patient.[facility] the event this information is protected by the Federal Confidentiality of Alcohol and Drug Abuse Patient Records regulations: The Federal rules restrict any use of the information to criminally investigate or prosecute any alcohol or drug abuse patient.[facility] the event this information is protected by the Federal Confidentiality of Alcohol and Drug Abuse Patient Records regulations: The Federal rules restrict any use of the information to criminally investigate or prosecute any alcohol or drug abuse patient.[facility] the event this information is protected by the Federal Confidentiality of Alcohol and Drug Abuse Patient Records regulations: The Federal rules restrict any use of the information to criminally investigate or prosecute any alcohol or drug abuse patient.[facility] the event this information is protected by the Federal Confidentiality of Alcohol and Drug Abuse Patient Records regulations: The Federal rules restrict any use of the information to criminally investigate or prosecute any alcohol or drug abuse patient.[facility] the event this information is protected by the Federal Confidentiality of Alcohol and Drug Abuse Patient Records regulations: The Federal rules restrict any use of the information to criminally investigate or prosecute any alcohol or drug abuse patient.[facility] the event this information is protected by the Federal Confidentiality of Alcohol and Drug Abuse Patient Records regulations: The Federal rules restrict any use of the information to criminally investigate or prosecute any alcohol or drug abuse patient.[facility] the event this information is protected by the Federal Confidentiality of Alcohol and Drug Abuse Patient Records regulations: The Federal rules restrict any use of the information to criminally investigate or prosecute any alcohol or drug abuse patient.[facility] the event this information is protected by the Federal Confidentiality of Alcohol and Drug Abuse Patient Records regulations: The Federal rules restrict any use of the information to criminally investigate or prosecute any alcohol or drug abuse patient.[facility] the event this information is protected by the Federal Confidentiality of Alcohol and Drug Abuse Patient Records regulations: The Federal rules restrict any use of the information to criminally investigate or prosecute any alcohol or drug abuse patient.[facility] the event this information is protected by the Federal Confidentiality of Alcohol and Drug Abuse Patient Records regulations: The Federal rules restrict any use of the information to criminally investigate or prosecute any alcohol or drug abuse patient.[facility] the event this information is protected by the Federal Confidentiality of Alcohol and Drug Abuse Patient Records regulations: The Federal rules restrict any use of the information to criminally investigate or prosecute any alcohol or drug abuse patient.[facility] the event this information is protected by the Federal Confidentiality of Alcohol and Drug Abuse Patient Records regulations: The Federal rules restrict any use of the information to criminally investigate or prosecute any alcohol or drug abuse patient.[facility] the event this information is protected by the Federal Confidentiality of Alcohol and Drug Abuse Patient Records regulations: The Federal rules restrict any use of the information to criminally investigate or prosecute any alcohol or drug abuse patient.[facility] the event this information is protected by the Federal Confidentiality of Alcohol and Drug Abuse Patient Records regulations: The Federal rules restrict any use of the information to criminally investigate or prosecute any alcohol or drug abuse patient.[facility] the event this information is protected by the Federal Confidentiality of Alcohol and Drug Abuse Patient Records regulations: The Federal rules restrict any use of the information to criminally investigate or prosecute any alcohol or drug abuse patient.[facility] the event this information is protected by the Federal Confidentiality of Alcohol and Drug Abuse Patient Records regulations: The Federal rules restrict any use of the information to criminally investigate or prosecute any alcohol or drug abuse patient.[facility] the event this information is protected by the Federal Confidentiality of Alcohol and Drug Abuse Patient Records regulations: The Federal rules restrict any use of the information to criminally investigate or prosecute any alcohol or drug abuse patient.[facility] the event this information is protected by the Federal Confidentiality of Alcohol and Drug Abuse Patient Records regulations: The Federal rules restrict any use of the information to criminally investigate or prosecute any alcohol or drug abuse patient.[facility] the event this information is protected by the Federal Confidentiality of Alcohol and Drug Abuse Patient Records regulations: The Federal rules restrict any use of the information to criminally investigate or prosecute any alcohol or drug abuse patient.[facility] the event this information is protected by the Federal Confidentiality of Alcohol and Drug Abuse Patient Records regulations: The Federal rules restrict any use of the information to criminally investigate or prosecute any alcohol or drug abuse patient.[facility] the event this information is protected by the Federal Confidentiality of Alcohol and Drug Abuse Patient Records regulations: The Federal rules restrict any use of the information to criminally investigate or prosecute any alcohol or drug abuse patient.[facility] the event this information is protected by the Federal Confidentiality of Alcohol and Drug Abuse Patient Records regulations: The Federal rules restrict any use of the information to criminally investigate or prosecute any alcohol or drug abuse patient.[facility] the event this information is protected by the Federal Confidentiality of Alcohol and Drug Abuse Patient Records regulations: The Federal rules restrict any use of the information to criminally investigate or prosecute any alcohol or drug abuse patient.[facility] the event this information is protected by the Federal Confidentiality of Alcohol and Drug Abuse Patient Records regulations: The Federal rules restrict any use of the information to criminally investigate or prosecute any alcohol or drug abuse patient.[facility] the event this information is protected by the Federal Confidentiality of Alcohol and Drug Abuse Patient Records regulations: The Federal rules restrict any use of the information to criminally investigate or prosecute any alcohol or drug abuse patient.[facility] the event this information is protected by the Federal Confidentiality of Alcohol and Drug Abuse Patient Records regulations: The Federal rules restrict any use of the information to criminally investigate or prosecute any alcohol or drug abuse patient.[facility] the event this information is protected by the Federal Confidentiality of Alcohol and Drug Abuse Patient Records regulations: The Federal rules restrict any use of the information to criminally investigate or prosecute any alcohol or drug abuse patient.[facility] Reason for Visit (unrecogniz ed section and [...] of plate 2 week ago seen in [facility] on 05/09/23.Was treated with cephalexin 500mg every 6 hours. Reason Onset Date Comments Refill Request 05/04/2023 Refill Request 06/03/2023 Reason Comments Patient Concerns Reason Comments Glucometer Order Reason Comments Severe Back Pain Reason Onset Date Comments Refill Request 09/18/2023 Reason Comments Medication Request Reason Comments referral request Care Teams (unrecognized sec tion and content) Electronic Engraver Relationship Specialty Start Date End Date Joon Reed MD [address] [place] [address] PCP - General 08/18/02 Electronic Engraver Relationship Specialty Start Date End Date Joon Reed MD [address] [place] [address] PCP - General 08/18/02 Electronic Engraver Relationship Specialty Start Date End Date Joon Reed MD [address] [place] [address] PCP - General 08/18/02 Electronic Engraver Relationship Specialty Start Date End Date Joon Reed MD [address] [place] [address], [place] [address] PCP - General 08/18/02 Electronic Engraver Relationship Specialty Start Date End Date Joon Reed MD [address] [place] [address], [place] [address] PCP - General 08/18/02 Electronic Engraver Relationship Specialty Start Date End Date Joon Reed MD [address] [place] [address], [place] [address] PCP - General 08/18/02 Electronic Engraver Relationship Specialty Start Date End Date Joon Reed MD [address] [place] [address], [place] [address] PCP - General 08/18/02 Electronic Engraver Relationship Specialty Start Date End Date Joon Reed MD [address] [place] [address], [place] [address] PCP - General 08/18/02 Electronic Engraver Relationship Specialty Start Date End Date Joon Reed MD [address] [place] [address], [place] [address] PCP - General 08/18/02 Electronic Engraver Relationship Specialty Start Date End Date Joon Reed MD [address] [place] [address], [place] [address] PCP - General 08/18/02 Electronic Engraver Relationship Specialty Start Date End Date Joon Reed MD [address] [place] [address], [place] [address] PCP - General 08/18/02 Electronic Engraver Relationship Specialty Start Date End Date Joon Reed MD [address] [place] [address], [place] [address] PCP - General 08/18/02 Electronic Engraver Relationship Specialty Start Date End Date Joon Reed MD [address] [place] [address] PCP - General 08/18/02 Electronic Engraver Relationship Specialty Start Date End Date Joon Reed MD [address] [place] [address] PCP - General 08/18/02 Electronic Engraver Relationship Specialty Start Date End Date Joon Reed MD [address] [place] [address] PCP - General 08/18/02 Electronic Engraver Relationship Specialty Start Date End Date Joon Reed MD [address] [place] [address] PCP - General 08/18/02 Electronic Engraver Relationship Specialty Start Date End Date Joon Reed MD [address] [place] [address] PCP - General 08/18/02 Electronic Engraver Relationship Specialty Start Date End Date Joon Reed MD [address] [place] [address] PCP - General 08/18/02 Electronic Engraver Relationship Specialty Start Date End Date Joon Reed MD [address] [place] [address] PCP - General 08/18/02 Electronic Engraver Relationship Specialty Start Date End Date Joon Reed MD [address] [place] [address] PCP - General 08/18/02 Electronic Engraver Relationship Specialty [place] [address] [place] [address] PCP - General 08/18/02 Electronic Engraver Relationship Specialty Start Date End Date Joon Reed MD [address] [place] [address] PCP - General 08/18/02 Electronic Engraver Relationship Specialty Start Date End Date Joon Reed MD [address] [place] [address] PCP - General 08/18/02 Electronic Engraver Relationship Specialty Start Date End Date Joon Reed MD [address] [place], [place] [address] PCP - General 08/18/02 Electronic Engraver Relationship Specialty Start Date End Date Joon Reed MD [address] [place] [address] PCP - General 08/18/02 FOR RECORDS PERTAINING [...] BE BASED ON THE PRIMARY CLINICAL RECORDS. [facility] [employer] [facility]. provides no warranty or guarantee of the accuracy or completeness of information in this document.
--- NOTE | 2023-12-29 22:44 | HP.PCM.HOS_ITS ---
HPI - General General Date of Admission: 12/29/23 Date of Service: 12/29/23 Chief Complaint: Fall, foul smelling urine, weakness, back/rib pain after fall. HPI Narrative The patient is a 78 y/o F w/ PMHx: PAF/Flutter s/p ablation, Obesity, Asthma, Allergic Rhinitis, HTN, HLD, Hx complete HB s/p pacemaker, RAMESH, CKD stage III unclear subtype, Diabetes mellitus type II who presents to the [facility] ED on 12/29/23 with history of recent fall on Thursday prior to current presentation with ongoing abdominal and rib discomfort noted to be same level apparently unfortunately knocked over by a dog and since then had ongoing discomfort in lower lower ribs and upper abdomen unfortunately noting that when she did fall she hit the back of her head as well as buttock and bilateral lower rib cage and upon her daughter checking in on her she did disclose these events eventually and her daughter noted foul-smelling urine with no recent fever or chills nor any nausea, emesis or diarrhea but given presentation prompted ED evaluation. Workup in the ED included T98.7, heart 74, BP 164/88, respiratory rate 18, 97% on room air, CBC with a BC 11.4, hemoglobin 13.6, platelet 119 with left shift, INR 3.3, CMP with sodium 132, BUN/creatinine 15/1.03, glucose 164, T. bili 1.80 otherwise hepatic profile not marked appearing, lipase less than 10, urinalysis noted to be cloudy, specific gravity 1.010, protein 30, occult blood 50, positive nitrite, leukocyte Estrace 500, urine RBC 5-10, urine WBCs 25-50 with 4+ urine bacteria, urine culture pending per ED, CT brain with chronic involutional changes, chest x-ray with degenerative changes with no acute cardiopulmonary findings, CT abdomen and pelvis with right hydroureteronephrosis with distal ureteral stricture versus mass, nodular contour of the liver compatible with cirrhosis, colonic diverticulosis with no obstruction. In the ED patient ministered IV Rocephin. [facility] Medical History (Updated 12/30/23 @ 01:[address] 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 Contact dermatitis and other eczema COVID-19 DDD (degenerative disc disease) Diabetes mellitus Essential hypertension Fracture of left elbow History of complete heart block Hx of bladder infections Hyperlipidemia Hypersomnia custodial (current) use of anticoagulants Obesity RAMESH (obstructive sleep apnea) Other secondary pulmonary hypertension Shoulder dislocation Home Medications warfarin 5 mg tablet 5 mg PO DAILY blood thinner 11/18/18 [History Last Taken 12/25/23] atorvastatin 10 mg tablet 10 mg PO QHS cholesterol 12/11/19 [History Last Taken 12/29/23] TENS unit electrodes #2 ea 07/11/20 [History Last Taken Unknown] oxycodone-acetaminophen 5 mg-325 mg tablet 1 tab PO Q8H PRN pain 12/07/20 [History Last Taken 06/15/22] cyclobenzaprine 10 mg tablet 5 - 10 mg PO BID PRN Spasms 06/17/22 [History Last Taken 12/29/23] magnesium oxide 400 mg PO DAILY supplement 06/17/22 [History Last Taken 12/29/23] metformin 500 mg tablet,extended release 24 hr 1,000 mg PO BID DM 06/17/22 [History Last Taken 12/29/23] gabapentin 300 mg capsule 300 mg PO BREAKFAST nerve pain 08/04/22 [History Last Taken 12/29/23] gabapentin 300 mg capsule 600 mg PO QHS Neuropathy 08/04/22 [History Last Taken 12/29/23] albuterol sulfate 90 mcg/actuation aerosol inhaler 2 puff inhalation Q4H PRN shortness of breath or wheezing #8.5 grams 11/26/23 [Rx Last Taken Unknown] budesonide-formoterol HFA 160 mcg-4.5 mcg/actuation aerosol inhaler (Symbicort) 2 puff inhalation BID asthma #10.2 grams 11/26/23 [Rx Last Taken 12/29/23] cyclobenzaprine 10 mg tablet 10 mg PO TID PRN Muscle Spasm #20 TABLETS 11/28/23 [Rx Last Taken Unknown] warfarin 2.5 mg tablet (Jantoven) 2.5 mg PO [place] blood thinner 12/30/23 [History Last Taken 12/29/23] Allergy/AdvReac Type Severity Reaction Status Date / Time amoxicillin Allergy Severe Hives Verified 12/29/23 15:52 aspirin Allergy Severe Hives, SOB Verified 12/29/23 15:52 Sulfa (Sulfonamide Allergy Severe Hives Verified 12/29/23 15:52 Antibiotics) Family History Mother Diabetes Father CAD (coronary artery disease) Sister Lung cancer Son Kidney stone Surgical History History of appendectomy History of kidney surgery Presence of permanent cardiac pacemaker (04/01/19) Social History household members: none housing: house number of children: 3 current occupational status: retired Smoking Status: Never smoker alcohol intake: never substance use type: does not use what type of physical activity do you participate in: none do you feel safe at home: Yes ROS Review of Systems ROS Unobtainable: due to encephalopathy Vital Signs Vital Signs Vital Signs: 12/29/23 15:52 12/29/23 17:50 12/29/23 17:53 Temperature 98.7 F Temperature Source Temporal Pulse Rate 74 63 Respiratory Rate 18 14 Respiratory Effort Normal Non-Labored Respiratory Pattern Normal Blood Pressure 164/88 H 145/104 H Blood Pressure Mean 113 117 Pulse Ox 97 96 Oxygen Delivery Method Room Air Room Air Room Air Oxygen Flow Rate (L/min) 96 12/29/23 20:08 12/29/23 22:25 12/29/23 22:28 Temperature Temperature Source Pulse Rate 87 Respiratory Rate 16 20 H Respiratory Effort Respiratory Pattern Blood Pressure 177/144 H 173/88 H Blood Pressure Mean 155 116 Pulse Ox 93 Oxygen Delivery Method Room Air Oxygen Flow Rate (L/min) 12/29/23 22:31 Temperature Temperature Source Pulse Rate Respiratory Rate Respiratory Effort Respiratory Pattern Blood Pressure 166/77 H Blood Pressure Mean 106 Pulse Ox Oxygen Delivery Method Oxygen Flow Rate (L/min) Physical Exam Narrative Physical Examination: General: Awake, alert, oriented to self and some recent events but has difficulty even stating who the person in the room is but eventually after a length of time able to state that it is her daughter but does appear confused, remains cooperative but occasionally irritable, seated upright in the ED bed, fatigued. Skin: Normal color, normal turgor, no icterus, no cyanosis except occasional very staged ecchymoses to extremities and thorax with recent falls. HEENT: AT/NC, EOMI, PERRLA, mildly dry MM, no carotid bruits or JVD noted. Lungs: Mildly diminished, greater bases, poor effort, no rales, ronchi or wheezing. Heart: Regular rate and rhythm; no gallop, rub audible. Abdomen: Soft, obese, mild generalized discomfort but no rebound or guarding, no marked distention, no obvious evidence of HSM. Extremities: No cyanosis, no clubbing, bilateral ankle to distal villagomez chronic nonpitting edema. Neurological: Patient awake, alert, oriented as noted, cognitive function not currently baseline intact but improving; pupils equally reactive to light and accommodation, cranial nerves grossly normal, moving all 4 extremities, no focal deficits, strength severely globally decreased secondary to acute presentation. Psychiatric: Affect appears fatigued, no acute evidence of depressive or anxiety feelings. Results Lab / Micro Data 12/29/23 19:00 12/29/23 19:00 Labs: Laboratory Results - last 24 hr 12/29/23 19:00: WBC 11.4 H, RBC 4.17 L, Hgb 13.6, Hct 39.8, MCV 95.4, MCH 32.6 H , MCHC 34.2, RDW Std Deviation 43.5, RDW Coeff of Jason 12.4, Plt Count 119 L, MPV 9.9, Immature Gran % (Auto) 0.600, Neut % (Auto) 80.5 H, Lymph % (Auto) 11.8 L, [place] % (Auto) 6.7, Eos % (Auto) 0.1, Baso % (Auto) 0.3, Absolute Neuts (auto) 9.2 H, Absolute Lymphs (auto) 1.35, Nucleated RBC % 0, PT 33.5 H, INR 3.3, Sodium 132 L, Potassium 4.5, Chloride 100, Carbon Dioxide 26.0, Anion Gap 6, BUN 15, Creatinine 1.03 H, Est GFR (MDRD) Af Amer 67, Est GFR (MDRD) Non-Af 55 L, BUN/Creatinine Ratio 14.6, Glucose 164 H, Calcium 9.2, Total Bilirubin 1.80 H, AST 32, ALT 15, Alkaline Phosphatase 91, Total Protein 8.3 H, Albumin 3.5, Globulin 4.8 H, Albumin/Globulin Ratio 0.7 L, Lipase < 10 L 12/29/23 20:16: Urine Color Yellow, Urine Clarity Sl. Cloudy, Urine pH 6.5, Ur Specific [place] 1.010, Urine Protein 30 H, Urine Glucose (UA) Normal, Urine Ketones Negative, Urine Occult Blood 50 H, Urine Nitrite Positive H, Urine Bilirubin Negative, Urine Urobilinogen Normal, Ur Leukocyte Esterase 500 H, Urine RBC 5-10 SEEN, Urine WBC 25-50 SEEN, Ur Squamous Epith Cells 0 SEEN, Urine Bacteria 4+, Urine Mucus 0 SEEN Imaging Radiology Impression Brain CT 12/29/23 18:30 IMPRESSION: Chronic involutional changes of the brain. Electronically Signed: Pete Vazquez MD at 21:07 EST , Abdomen/Pelvis CT 12/29/23 19:50 IMPRESSION: Right hydroureteronephrosis with distal ureteral stricture versus mass. Cystoscopic correlation recommended. Nodular contour of the liver compatible with cirrhosis. Colonic diverticulosis. No obstruction. No solid organ injury. No acute fracture seen. Electronically Signed: Pete Vazquez MD at 21:26 EST Reading Location ID and State: [facility] / [place] , Service support , Chest X-Ray 12/29/23 20:00 IMPRESSION: Degenerative changes, as described above. No demonstrated acute cardiopulmonary process. Electronically Signed: Pete Vazquez MD at 21:27 EST , Assessment & Plan Assessment/Plan (1) UTI (urinary tract infection): PLAN: Plan The patient is a 78 y/o F w/ PMHx: PAF/Flutter s/p ablation, Obesity, Asthma, Allergic Rhinitis, HTN, HLD, Hx complete HB s/p pacemaker, RAMESH, CKD stage III unclear subtype, Diabetes mellitus type II who presents to the [facility] ED on 12/29/23 with history of recent fall on Thursday prior to current presentation with ongoing abdominal and rib discomfort noted to be same level apparently unfortunately knocked over by a dog and since then had ongoing discomfort in lower lower ribs and upper abdomen unfortunately noting that when she did fall she hit the back of her head as well as buttock and bilateral lower rib cage and upon her daughter checking in on her she did disclose these events eventually and her daughter noted foul-smelling urine with no recent fever or chills nor any nausea, emesis or diarrhea but given presentation prompted ED evaluation. #1. Acute Encephalopathy secondary to Acute Complicated Urinary Tract Infection complicated by right hydroureteronephrosis with distal ureteral stricture versus mass: Will admit to [facility] upon ED evaluation remarkable, pending UCx, continue IVFs, monitor I/Os, continue IV Rocephin w/ transition as able pending sensitivities and speciation, urology consultation pending, n.p.o. after midnight with judicious hydration. PT/OT/case management consultation for discharge planning. #2. Recent mechanical fall: CT the brain with no acute findings, CT abdomen pelvis as noted above, fall potentially related with acute complicated UTI, will maintain on fall and aspiration precautions, PT/OT/case management consulted for discharge planning. #3. Diabetes mellitus type II with chronic neuropathy: Hold oral home regimen, ADA diet until n.p.o. status, accu checks w/ ISS, continue chronic home gabapentin regimen. #4. Hypertension: Clarifying but currently patient does not appear to be on antihypertensive although BP is above goal, will clarify and in the interim we will have as needed IV hydralazine. #5. Hyperlipidemia: We will continue patient on statin therapy. #6. Chronic Kidney Disease Stage III, unclear subtype: Admission BUN/Cr 15 /1.03, GFR 55, baseline renal function primarily 0.9-1.0, stable, repeat BMP in AM. #7. PAF/flutter: Status post previous ablation, not on any rate or rhythm agent but clarifying, holding Coumadin as noted given possible intervention needs. #8. History complete heart block: Status post pacemaker placement. #9. Obesity: Weight loss and lifestyle changes encouraged. #10. Chronic asthma with allergic rhinitis: We will temporally hold home inhalers in the interim placed on ATC budesonide therapy, PRN albuterol, HOB, IS parameters. #11. RAMESH: CPAP nightly. #12. DVT prophylaxis: Holding Coumadin, presentation INR 3.3. Will repeat INR in a.m. and pending preference per Dr. Samaniego may certainly consider administering FFP for more quick reversal prior to intervention. #13. CODE status: Patient HCPOA and LW are not in place but her daughter would be her decision-maker if necessary she notes. Discussed CODE status at length including difference between FULL code, DNR-CCA and DNR-CC status. Following discussions about the differences in these status, requested Full Code status. Advanced Care Planning Face to Face Time: 16 minutes. Charges/Coding Visit Charges Inpatient E&M: 08458 Init Hosp L3 Procedures Hospitalists Procedures: 59396 Advncd Care Plan 30 Min
--- OUTSIDE RECORDS SUMMARY | 2023-12-29 23:10 | XMS RPT_ITS | CCD ---
Author Name Unknown Address [address] [place] [address] Organization [facility] Care Team Providers Care Keeper Head Name Role Phone Wilder BOONE Clarisseheide Zambrano [...] sources) amoxicillin; 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: [AMOXICILLIN] Drug Allergy 5 [facility] Work Phone: (20 sources) aspirin; 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: [ASPIRIN] Drug Allergy 04-07-200 9 Hives; SOB [facility] Work Phone: [phone] (2 sources) sulfaSALAzine Drug Allergy 5 Hives [facility] Work Phone: [phone] (4 sources) PROAIR RESPICLICK; 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: [PROAIR RESPICLICK] allergy to substance 6 Lack of efficiency [facility] Work Phone: [phone] (20 sources) Sulfonamides (Antibiotic); 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: [SULFA (SULFONAMIDE ANTIBIOTICS)] Drug Allergy 5 [facility] (2 sources) tiZANidine; 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: [TIZANIDINE] Drug Allergy 3 Mental Status Change, Other: See Comments [facility] Work Phone: Medications Current Medications Medication [...] tab twice daily as needed HYDROCODONE-ACETAM INOPHEN [id number] Clarisse Bai [id number] 200 actuat albuterol 0.09 mg/actuat metered dose inhaler (20 sources) beta2-Adrenergic Agonist Start: 05-24-2023 End: 09-18-2023 take 2 puff(s) by inhalation every four hours as needed for wheezing albuterol HFA (PROAIR HFA) 90 mcg/actuation inhaler Indications: Mild intermittent asthma without complication Inhale 2 Puffs as instructed every 4 hours as needed for wheezing/shortness of breath. 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] Episodic Other connective tissue [...] Unclassified (2 sources) Warfarin therapy started; 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: [FDC (current) use of anticoagulants] Onset: 05-01-2017 05-01-2017 [...] Other aftercare (20 sources) Anticoagulant effect; 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: [FDC (current) use of anticoagulants] Onset: 04-12-2019 Episodic [...] 09:05-0500 Body weight 89.81 kg Whitney Jose ACID STRENGTH INSPECTOR.COUNTER CLERK Work Phone: [facility] 09-23-2023 09:05-0500 Diastolic blood pressure 70 mm[Hg] Whitney Jose ACID STRENGTH INSPECTOR.COUNTER CLERK Work Phone: [facility] 09-23-2023 09:05-0500 Heart rate 83 /min Whitney Jose ACID STRENGTH INSPECTOR.COUNTER CLERK Work Phone: [facility] 09-23-2023 09:05-0500 SaO2% (BldA) [Mass fraction] 97 % Whitney Jose ACID STRENGTH INSPECTOR.COUNTER CLERK Work Phone: [facility] 09-23-2023 09:05-0500 Systolic blood pressure 128 mm[Hg] Whitney Jose ACID STRENGTH INSPECTOR.COUNTER CLERK Work Phone: [facility] 05-12-2023 08:54-0400 Body weight 87.54 kg Whitney Jose ACID STRENGTH INSPECTOR.COUNTER CLERK Work Phone: [facility] 05-12-2023 08:54-0400 Diastolic blood pressure 78 mm[Hg] Whitney Jose ACID STRENGTH INSPECTOR.COUNTER CLERK Work Phone: [facility] 05-12-2023 08:54-0400 Heart rate 82 /min Whitney Jose ACID STRENGTH INSPECTOR.COUNTER CLERK Work Phone: [facility] 05-12-2023 08:54-0400 SaO2% (BldA) [Mass fraction] 98 % Whitney Jose ACID STRENGTH INSPECTOR.COUNTER CLERK Work Phone: [facility] 05-12-2023 08:54-0400 Systolic blood pressure 134 mm[Hg] Whitney Jose ACID STRENGTH INSPECTOR.COUNTER CLERK Work Phone: [facility] 04-16-2023 07:09-0400 Body weight 88.45 kg Nicolleallen Millers ACID STRENGTH INSPECTOR.ORTHO TECH Work Phone: [facility] 04-16-2023 07:09-0400 Diastolic blood pressure 80 mm[Hg] Nicolle Tang ACID STRENGTH INSPECTOR.ORTHO TECH Work Phone: [facility] 04-16-2023 07:09-0400 Heart rate 80 /min Nicolle Tang ACID STRENGTH INSPECTOR.ORTHO TECH Work Phone: [facility] 04-16-2023 07:09-0400 Respiratory rate 16 /min Nicolle Tang ACID STRENGTH INSPECTOR.ORTHO TECH Work Phone: [facility] 04-16-2023 07:09-0400 SaO2% (BldA) [Mass fraction] 98 % Nicolle Tang ACID STRENGTH INSPECTOR.ORTHO TECH Work Phone: [facility] 04-16-2023 07:09-0400 Systolic blood pressure 120 mm[Hg] Nicolle Tang ACID STRENGTH INSPECTOR.ORTHO TECH Work Phone: [facility] 04-03-2023 12:28-0400 Body temperature 96.4 [degF] Joon Reed MD Work Phone: [facility] 04-03-2023 12:28-0400 Body weight 91.63 kg Joon Reed MD Work Phone: [facility] 04-03-2023 12:28-0400 Diastolic blood pressure 83 mm[Hg] Joon Reed MD Work Phone: [facility] 04-03-2023 12:28-0400 Heart rate 86 /min Joon Reed MD Work Phone: [facility] 04-03-2023 12:28-0400 Respiratory rate 18 /min Joon Reed MD Work Phone: [facility] 04-03-2023 12:28-0400 SaO2% (BldA) [Mass fraction] 96 % Joon Reed MD Work Phone: [facility] 04-03-2023 12:28-0400 Systolic blood pressure 149 mm[Hg] Joon Reed MD Work Phone: [facility] 03-31-2023 09:09-0400 Body weight 91.17 kg Whitney Jose ACID STRENGTH INSPECTOR.COUNTER CLERK Work Phone: [facility] 03-31-2023 09:09-0400 Diastolic blood pressure 72 mm[Hg] Whitney Jose ACID STRENGTH INSPECTOR.COUNTER CLERK Work Phone: [facility] 03-31-2023 09:09-0400 Heart rate 81 /min Whitney Jose ACID STRENGTH INSPECTOR.COUNTER CLERK Work Phone: [facility] 03-31-2023 09:09-0400 SaO2% (BldA) [Mass fraction] 97 % Whitney Jose ACID STRENGTH INSPECTOR.COUNTER CLERK Work Phone: [facility] 03-31-2023 09:09-0400 Systolic blood pressure 128 mm[Hg] Whitney Jose ACID STRENGTH INSPECTOR.COUNTER CLERK Work Phone: [facility] 12-26-2022 11:33-0500 Body temperature 96.91 [degF] Joon Reed MD Work Phone: [facility] 12-26-2022 11:33-0500 Body weight 90.27 kg Joon Reed MD Work Phone: [facility] 12-26-2022 11:33-0500 Diastolic blood pressure 78 mm[Hg] Joon Reed MD Work Phone: [facility] 12-26-2022 11:33-0500 Heart rate 91 /min Joon Reed MD Work Phone: [facility] 12-26-2022 11:33-0500 Respiratory rate 18 /min Joon Reed MD Work Phone: [facility] 12-26-2022 11:33-0500 SaO2% (BldA) [Mass fraction] 97 % Joon Reed MD Work Phone: [facility] 03-03-2023 11:33-0500 Systolic blood pressure 124 mm[Hg] Joon Reed MD Work Phone: [facility] 12-04-2022 10:57-0500 Body temperature 98.4 [degF] Daron Singh MD Work Phone: [facility] 12-04-2022 10:57-0500 Body weight 92.81 kg Daron Singh MD Work Phone: [facility] 12-04-2022 10:57-0500 Diastolic blood pressure 78 mm[Hg] Daron Singh MD Work Phone: [facility] 12-04-2022 10:57-0500 Heart rate 90 /min Daron Singh MD Work Phone: [facility] 12-04-2022 10:57-0500 Respiratory rate 18 /min Daron Singh MD Work Phone: [facility] 12-04-2022 10:57-0500 SaO2% (BldA) [Mass fraction] 97 % Daron Singh MD Work Phone: [facility] 12-04-2022 10:57-0500 Systolic blood pressure 142 mm[Hg] Daron Singh MD Work Phone: [facility] 07-01-2022 11:03-0400 Body weight 88 kg Joon Reed MD Work Phone: [facility] 07-01-2022 11:03-0400 Diastolic blood pressure 82 mm[Hg] Joon Reed MD Work Phone: [facility] 07-01-2022 11:03-0400 Heart rate 76 /min Joon Reed MD Work Phone: [facility] 07-01-2022 11:03-0400 SaO2% (BldA) [Mass fraction] 96 % Joon Reed MD Work Phone: [facility] 07-01-2022 11:03-0400 Systolic blood pressure 142 mm[Hg] Joon Reed MD Work Phone: [facility] 05-06-2022 08:43-0400 Body weight 88.45 kg Xi Haagen ACID STRENGTH INSPECTOR.COUNTER CLERK Work Phone: [facility] 05-06-2022 08:43-0400 Diastolic blood pressure 80 mm[Hg] Xi Haagen ACID STRENGTH INSPECTOR.COUNTER CLERK Work Phone: [facility] 05-06-2022 08:43-0400 Heart rate 79 /min Xi Haagen ACID STRENGTH INSPECTOR.COUNTER CLERK Work Phone: [facility] 05-06-2022 08:43-0400 Respiratory rate 18 /min Xi Haagen ACID STRENGTH INSPECTOR.COUNTER CLERK Work Phone: [facility] 05-06-2022 08:43-0400 SaO2% (BldA) [Mass fraction] 96 % Xi Haagen ACID STRENGTH INSPECTOR.COUNTER CLERK Work Phone: [facility] 05-06-2022 08:43-0400 Systolic blood pressure 134 mm[Hg] Xi Haagen ACID STRENGTH INSPECTOR.COUNTER CLERK Work Phone: [facility] 03-25-2022 16:03-0400 Diastolic blood pressure 70 mm[Hg] Joon Reed MD Work Phone: [facility] 03-25-2022 16:03-0400 Systolic blood pressure 114 mm[Hg] Joon Reed MD Work Phone: [facility] 03-25-2022 15:20-0400 Body weight 88 kg Joon Reed MD Work Phone: [facility] 03-25-2022 15:20-0400 Heart rate 83 /min Joon Rede MD Work Phone: [facility] 03-25-2022 15:20-0400 SaO2% (BldA) [Mass fraction] 97 % Joon Reed MD Work Phone: [facility] 01-17-2022 11:10-0400 Diastolic blood pressure 64 mm[Hg] Joon Reed MD Work Phone: [facility] 01-17-2022 11:10-0400 Systolic blood pressure 112 mm[Hg] Joon Reed MD Work Phone: [facility] 01-17-2022 10:26-0400 Body weight 84.82 kg Joon Reed MD Work Phone: [facility] 01-17-2022 10:26-0400 Heart rate 84 /min Joon Reed MD Work Phone: [facility] 08-17-2017 09:37-0400 BP Diastolic 68 mm[Hg] [...] Joon collins MD Work Phone: Internal [facility] [place] Procedures Date Procedure Procedure Detail Performing Clinician Start: 12-04-2022 Urnls dip stick/tabl et rgnt auto w/o microscopy Arina Alvares PA-C Work Phone: Start: 05-06-2022 2019 CORONAVIRUS Orville Worley ACID STRENGTH INSPECTOR.COUNTER CLERK Work Phone: Start: 03-25-2022 Hemoglobin A1c/Hemoglobin.total in [...] 1996 panel - Serum or Plasma Grant oK MD Work Phone: Start: 05-01-2017 End: 05-05-2017 [...] as indicated) & Follow up Leeanna Mascorro COUNTER CLERK Work Phone: Start: 01-05-2017 End: 01-16-2017 DMB Leeanna Perales IMPORT AND EXPORT CLERK Work Phone: Start: 01-05-2017 End: 01-16-2017 Follow Up Appt 2 months Leeanna valentine COUNTER CLERK Work Phone: Start: 01-05-2017 End: 01-16-2017 Pulmonary Function Test - complete Leeanna Mascorro COUNTER CLERK Work Phone: Start: 01-05-2017 End: 01-16-2017 Pulmonary stress test/simple Leeanna Mascorro COUNTER CLERK Work Phone: Plan of Treatment Date Care Activity Detail Author Start: 10-07-2024 Annual PCP Team [employer] jr Disease Visit Annual PCP Team Chronic Disease Visit [facility] Start: 09-23-2024 Annual PCP Team Beer Coil Cleaner jr Disease Visit Annual PCP Team Chronic Disease Visit [facility] Start: 09-23-2024 BP Controlled (<130/80) BP Controlle d (<130/80) [facility] Start: 09-23-2024 Covid-19 Vaccine (#1) Covid-19 Vacci ne (#1) [facility] Immunizations Immunization Date Immunization Notes Care Provider Lyudmila steven 08-19-2019 influenza virus vacc ine, unspecified formulation Joon Reed MD Work Phone: [facility] 10-01-2012 pneumococcal polysaccharide vaccine, 23 valent Joon Reed MD Work Phone: [facility] 10-03-2011 tetanus toxoid, redu fe diphtheria toxoid, and acellular pertussis vaccine, adsorbed Joon Reed MD Work Phone: [facility] Payers Date Payer Category Payer Medicare [employer] THP [facility] [id number] 2021-Present [phone] [place] [id number] [facility] [id number] 2021 Medicare [employer] MEDICARE [facility] [id number] 2021-Present [id number] [place] [id number] O [id number] 2021 Unknown [id number] Social History Date Type Detail Facility Start: 02-02-2018 End: 07-01-2022 Tobacco smoking status NHIS Never smoked tobacco [facility] Start: 11-01-2021 End: 10-07-2023 Alcohol intake Current non-drinker of alcohol (finding) [facility] Start: 1945 Sex Assigned At Not on file C [facility] Start: 01-07-2022 End: 07-01-2022 Exposure to SARS-CoV-2 (event) Not sure [facility] Start: 02-02-2018 End: 07-01-2022 Tobacco use and exposure Smokeless tobacco non-user [facility] Start: 03-31-2023 End: 04-16-2023 History of Social function [facility] Work Phone: Start: 03-31-2023 End: 04-16-2023 Tobacco use panel [facility] Work Phone: Adult Depression Screening Assessment 0 [facility] Work Phone: Medical Equipment Procedure Code Equipment Code Equipment Origin al Text Equipment Identifier Dates Start: 10-02-2015 End: 06-22-2023 Clinical Notes 09-29-2005 to 12-15-2023 Telephone Encounter - Yuko Rogers RN - 12/15/2023 8:24 AM ESTTelephone Encounter - Nicolle Tang APRN.ORTHO TECH - 12/14/2023 4:46 PM Whitney Echeverria APRN.CNP - 09/23/2023 9:20 AM EST Note Date & Type Note Facility 12-15-2023 Miscellaneous Notes Consults, office notes, and demographic faxed over to [facility] as requested. Patient notified that paperwork faxed. Patient voices understanding. Yuko Roegrs RN Consult placed, see below Patient's daughter Brooke calls and states that patient continues to have a lot of back pain. Daughter is asking if provider can write a referral to spine doctor and fax referral to [facility] [phone]. Please review and advise, Yuko Rogers RN documented in this encounter [facility] 10-07-2023 Note HNO ID: [id number] Author: JOON REED MD Service: ? Author Type: Physician Type: Progress Notes Filed: 11/10/2023 13:30 Note Text: This note was created using [employer]owa Technologiesriter. Subjective Keisha Red is a 78 year [...] Right shoulder s/p fall with reduction at [facility] Type II or unspecified type diabetes [...] hours as needed for wheezing/shortness of breath. 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 ([facility] pulmonology) blood sugar diagnostic (BLOOD GLUCOSE [...] Abs Lymph 1.00 - 4.00 k/uL 1.63 [place]% % 6.1 Abs [place] <0.87 k/uL 0.42 Eosin% % 4.6 (more content not included)... [facility] 09-30-2023 Miscellaneous Notes Below left on identified [...] asking for something to help. Patient uses [facility] for her pharmacy. Please advise documented in this encounter [facility] 09-23-2023 Note HNO ID: [id number] Author: Whitney Garcia APRN.DOMINGO Service: ? Author [...] hours as needed for wheezing/shortness of breath. 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 Do all this for 180 days. triamcinolone acetonide (KENALOG) 0.1 % cream Apply 1 application to affected area three times daily as needed. For rash on extremities and leg budesonide-formoterol (SYMBICORT) 160-4.5 mcg/actuation inhaler Inhale 2 Puffs as instructed twice daily. 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 Agudelo Muscle Spasm Rotator Cuff Tear - 05/06/2011 Diabetes Mellitus Type 2, Controlled, Without Complications ([facility]) Hyperlipemia - 12/19/2010 Back Strain, recurrent Comment: [...] round, and reacti (more content not included)... [facility] 09-23-2023 History of Present illness Narrative SUBJECTIVE [...] hours as needed for wheezing/shortness of breath. 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 Do all this for 180 days. triamcinolone acetonide (KENALOG) 0.1 % cream Apply 1 application to affected area three times daily as needed. For rash on extremities and leg budesonide-formoterol (SYMBICORT) 160-4.5 mcg/actuation inhaler Inhale 2 Puffs as instructed twice daily. 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 Agudelo Muscle Spasm Rotator Cuff Tear - 05/06/2011 Diabetes Mellitus Type 2, Controlled, Without Complications ([facility]) Hyperlipemia - 12/19/2010 Back Strain, recurrent Comment: [...] activity was identified. 09/23/2023 by Whitney Garcia APRN.COUNTER CLERK Medical Decision Making: Problems: Moderate: 2+ stable [...] appointment.. ENEDINA Klein documented in this encounter [facility] 09-18-2023 Miscellaneous Notes Last office visit: 06/22/23 Next appointment scheduled: 09/23/23 Patient has been identified by name and date of : Yes Requested Prescriptions Pending Prescriptions Disp Refills albuterol HFA (PROAIR HFA) 90 mcg/actuation inhaler 1 Each 3 Sig: Inhale 2 Puffs as instructed every 4 hours as needed for wheezing/shortness of breath. 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 No need to notify patient. Mattie Mosley documented in this encounter [facility] 09-10-2023 Miscellaneous Notes Left a message with information listed below. Maddie Rojo LPN If her back pain is a 10 of 10 and not being helped with medications she should go to the emergency department for further evaluation and treatment. Patient calling to ask if provider gave an answer. Went over notes below from Nicolle Tang IMPORT AND EXPORT CLERK with understanding. Patient is going to call [facility] and discuss with them. Attempted to contact [...] the TENS unit electrodes to [facility], not sure if they can provide that [...] old & worn out. Pt uses [facility] in [place]. Please notify pt of response. Elvia Orellana LPN documented in this encounter [facility] 07-16-2023 Miscellaneous Notes ok Patient calling to request order for new glucometer. Her old one is no longer working. [facility] [place]. Patient has been identified by name [...] Taylor Ruffin, RN documented in this encounter [facility] 07-14-2023 Miscellaneous Notes Patient has been [...] advise. Brooke Cooper documented in this encounter [facility] 06-22-2023 Note HNO ID: [id number] Author: Joon Reed MD Service: ? Author Type: Physician Type: Progress Notes Filed: 07/26/2023 9:47 PM Note Text: This note was created using [employer]. Subjective Keisha Red is a 78 year [...] on foot) down to the nerves--working with surgical resident to heal. Still wrapped. They applied placenta [...] Right shoulder s/p fall with reduction at [facility] Type II or unspecified type diabetes mellitus without mention of complication, not stated as uncontrolled Unspecified asthma(493.90) Unspecified essential hypertension Current Outpatient Medications Medication Sig albuterol HFA (PROAIR HFA) 90 mcg/actuation inhaler Inhale 2 Puffs as instructed every 4 hours as needed for wheezing/shortness of breath. 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 Author Type: Nurse Practitioner Type: Progress Notes Filed: 05/12/2023 10:43 AM Note Text: JESSICA Red is a 78 year old female here today for an ER follow up. Chief Complaint Patient presents with: Wound Check: 05/02/2023 left foot burn from a plate of hot chicken sliding of plate 2 week ago seen in [facility] ER on 05/09/23. Was treated with cephalexin 500mg every 6 hours. HIREN Red is a 78 year old female established patient of Joon Reed MD. She presents today for an ER follow up. Seen in the ER at [facility] for an injury sustained on 05/02. [...] hours as needed for wheezing/shortness of breath. 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 [facility] 05-12-2023 Instructions Whitney Garcia APRN.COUNTER CLERK - 05/12/2023 9:09 AM EDT Take your [...] the Keflex, start doxycycline for infection. See surgical resident (foot doctor). documented in this encounter [facility] 05-12-2023 History of Present illness Narrative Images from the original note were not included. SUBJECTIVE Keisha Red is a 78 year old female here today for an ER follow up. Chief Complaint Patient presents with: Wound Check: 05/02/2023 left foot burn from a plate of hot chicken sliding of plate 2 week ago seen in [facility] ER on 05/09/23. Was treated with cephalexin 500mg every 6 hours. HPI Keisha Red is a 78 year old female established patient of Joon Reed MD. She presents today for an ER follow up. Seen in the ER at [facility] for an injury sustained on 05/02. [...] hours as needed for wheezing/shortness of breath. 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 ENEDINA Klein documented in this encounter [facility] 05-06-2023 Miscellaneous Notes The following approved [...] the patient as she uses [facility] [place] documented in this encounter [facility] 04-16-2023 Note HNO ID: [id number] Author: Nicolle Tang APRN.ORTHO TECH Service: ? Author Type: Nurse Specialist Type: [...] 03/25/2022 6.0 ) She reports going to [facility] for eye exams. Does not have a surgical resident currently. No complaints with her feet. Declines [...] Take 2 table (more content not included)... [facility] 04-16-2023 History of Present illness Narrative SUBJECTIVE: [...] 03/25/2022 6.0 ) She reports going to [email or web address] for eye exams. Does not have a surgical resident currently. No complaints with her feet. Declines [...] hours as needed for wheezing/shortness of breath. 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 Protocols used: Chest [id number], Breathing [id number] documented in this encounter [facility] 04-03-2023 Note HNO ID: [id number] Author: Joon Reed MD Service: ? Author Type: Physician Type: Progress Notes Filed: 05/03/2023 11:38 PM Note Text: This note was created using [employer]. Subjective Keisha Red is a 78 year [...] Right shoulder s/p fall with reduction at [facility] Type II or unspecified type diabetes [...] hours as needed for wheezing/shortness of breath. 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 Musculoskeletal: (more content not included)... [facility] 04-03-2023 History of Present illness Narrative This note was created using [employer]. Subjective Keisha Red is a 78 year [...] Right shoulder s/p fall with reduction at [facility] Type II or unspecified type diabetes [...] hours as needed for wheezing/shortness of breath. 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 Judgment: Judgment normal. Labs from [facility] ER evaluation reviewed. Assessment and Plan [...] PANEL BASIC 7. Atrial flutter, unspecified type ([facility]) I48.92 8. Pacemaker Z95.0 9. Essential hypertension I10 10. Mild intermittent asthma without complication J45.20 11. RAMESH (obstructive sleep apnea) G47.33 12. 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 Anticoagulated on Coumadin Z79.01 14. Pulmonary hypertension ([facility]) I27.20 Follows with [facility] pulmonology Above issues addressed with patient. Patient [...] the date of the service which included [id number] patient care, completing clinical documentation, performing a medically appropriate examination, counseling and educating the patient/family/caregiver, ordering medications, tests, or procedures, and communicating results to the patient/family/caregiver. Joon Reed MD documented in this encounter [facility] 03-31-2023 Note HNO ID: [id number] Author: Whitney Garcia APRN.COUNTER CLERK Service: ? Author Type: Nurse Practitioner Type: [...] hours as needed for wheezing/shortness of breath. 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 Conjunctiva/scl (more content not included)... [facility] 03-31-2023 Instructions Whitney Garcia APRN.DOMINGO - 03/31/2023 [...] try a steroid. documented in this encounter [facility] 03-31-2023 History of Present illness Narrative [...] hours as needed for wheezing/shortness of breath. 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) diclofenac (VOLTAREN ARTHRITIS PAIN) 1 % [...] Mellitus Type 2, Controlled, Without Complications ([facility]) Hyperlipemia - 12/19/2010 Back Strain, recurrent Comment: [...] activity was identified. 03/31/2023 by Whitney Garcia APRN.COUNTER CLERK - OXYCODONE-ACETAMINOPHEN 5 MG-325 MG TABLET 3. [...] appointment.. ENEDINA Klein documented in this encounter [facility] 03-26-2023 Miscellaneous Notes Patient has been [...] Taylor Ruffin RN documented in this encounter [facility] 03-17-2023 Note HNO ID: [id number] Author: Souleymane Shepard APRN.CNP Service: ? Author [...] to exit. Family member will proceed to [facility] for further evaluation care. Caregiver verbalized understand agrees with plan of care. Souleymane Shepard APRN.CNP [facility] 12-26-2022 Miscellaneous Notes Electronic PA completed for cyclobenzaprine. This was approved form 12/12/22 to 12/27/23. documented in this encounter [facility] 12-26-2022 Note HNO ID: [id number] Author: Joon Reed MD Service: ? Author Type: Physician Type: Progress Notes Filed: 01/26/2023 12:44 AM Note Text: This note was created using [employer]. Subjective Keisha Red is a 77 year [...] Right shoulder s/p fall with reduction at [facility] Type II or unspecified type diabetes [...] hours as needed for wheezing/shortness of breath. 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) blood sugar diagnostic (RELION PRIME TEST [...] Judgment: Judgment normal (more content not included)... [facility] 12-26-2022 History of Present illness Narrative This note was created using [employer]. Subjective Keisha Red is a 77 year [...] Right shoulder s/p fall with reduction at [facility] Type II or unspecified type diabetes [...] hours as needed for wheezing/shortness of breath. 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) blood sugar diagnostic (RELION PRIME TEST [...] Joon Reed MD documented in this encounter [facility] 12-04-2022 History of Present illness Narrative [...] hours as needed for wheezing/shortness of breath. 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) blood sugar diagnostic (RELION PRIME TEST [...] Right shoulder s/p fall with reduction at [facility] Type II or unspecified type diabetes [...] Daron Singh MD documented in this encounter [facility] 12-04-2022 Miscellaneous Notes noted, agree with urgent care Patient calling she is noticing she is voiding smaller amounts, and burning with urination and has frequency for several hours each day. Aware PCP is out of office today and patient can not make the appt time offered for IMPORT AND EXPORT CLERK. Advised patient that she can walk in at [facility] for evaluation to see if she has UTI. Patient plans to do that today. documented in this encounter [facility] 11-20-2022 Miscellaneous Notes Patient has been [...] Cecilia Rojo Pss documented in this encounter [facility] 09-15-2022 Miscellaneous Notes Last filled February. [...] Omaira Ortega Pss documented in this encounter [facility] 07-28-2022 Miscellaneous Notes Patient calling asking for new glucose meter, one she had stopped working. She does not know which meter is covered by her insurance. Pending generic meter, strips, lancets to file. Patient uses [facility] for her pharmacy. Aware PCP is out [...] Tamy Donis LPN documented in this encounter [facility] 07-01-2022 History of Present illness Narrative This note was created using [employer]. Subjective Keisha Red is a 77 year [...] Right shoulder s/p fall with reduction at [facility] Type II or unspecified type diabetes [...] hours as needed for wheezing/shortness of breath. 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) gabapentin (NEURONTIN) 300 mg capsule Take [...] Joon Reed MD documented in this encounter [facility] 06-17-2022 Miscellaneous Notes Daughter phoned to report patient is going back to [facility] ER. Reports something is not right. [...] Maddie Rojo LPN documented in this encounter [facility] 06-16-2022 Miscellaneous Notes Daughter calling, mother [...] AND [3] new-onset Protocols used: Confusion - [id number] documented in this encounter [facility] 05-13-2022 Miscellaneous Notes Noted. Xi Worley APRN.DOMINGO x3 attempt. Unable to reach patient. Contacted DDM William & confirmed with pattern technician patient picked up medication 05/11/22 @ 12:02 PM. Reached out to EC daughter Dian Sullivan. Results given to daughter & confirmed patient has started [place] medications. Daughter states patient is starting to do/sound a lot better. Will close TE at this time. Genevieve Lpoez MA Phoned pt again, no answer, left [...] Xi Worley APRN.CNP documented in this encounter [facility] 05-07-2022 Miscellaneous Notes See other TE. Curtis Yi LPN Can please let patient know that the chest xray did not show any pneumonia. iX Worley APRN.CNP Pt calling for results from CXR that was completed this am. Elvia Orellana LPN documented in this encounter [facility] 05-06-2022 Miscellaneous Notes See office notes. Xi Worley APRN.DOMINGO Pt called in and states wheezing, coughing x 3 days. No apt available today with pcp/team/Int med. Apt booked with FP. Maddie Rojo LPN documented in this encounter [facility] 05-06-2022 Instructions Xi Worley APRN.DOMINGO - 05/06/2022 9:05 AM EDT 1. Get the xray. 2. Start the prednisone -- 2 pills daily X 5 days. 3. Watch sugars. Let us know if getting high. 4. Push fluids. 5. Let us know if not improving or getting worse. documented in this encounter [facility] 05-06-2022 History of Present illness Narrative [...] Right shoulder s/p fall with reduction at [facility] Type II or unspecified type diabetes [...] hours as needed for wheezing/shortness of breath. 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) gabapentin (NEURONTIN) 300 mg capsule Take [...] or as needed for worsening/no improvement. Xi Wolrey APRN.DOMINGO documented in this encounter [facility] 04-18-2022 Miscellaneous Notes Okayed Patient has [...] Taniya Baig Pss documented in this encounter [facility] 03-25-2022 History of Present illness Narrative This note was created using [employer]. Subjective Keisha Red is a 77 year [...] hours as needed for wheezing/shortness of breath. 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) gabapentin (NEURONTIN) 300 mg capsule Take [...] V58.61, ICD10: Z79.01 Will get INRs at [facility] as usual and have managed by [facility] 5. Encounter for long-term current use of medication - ICD9: V58.69, ICD10: Z79.899 - CBC 6. Atrial flutter, unspecified type (HCC) - ICD9: 427.32, ICD10: I48.92 stable on meds Joon Reed MD documented in this encounter [facility] 01-17-2022 History of Present illness Narrative This note was created using [employer]. Subjective Keisha Red is a 76 year [...] Right shoulder s/p fall with reduction at [facility] Type II or unspecified type diabetes [...] hours as needed for wheezing/shortness of breath. 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) cyclobenzaprine (FLEXERIL) 10 mg tablet Take [...] Joon Reed MD documented in this encounter [facility] 11-22-2021 History of Present illness Narrative This note was created using [employer]. Subjective Keisha Red is a 76 year old female. Patient presents with: Recheck: 2 month follow up SUBJECTIVE: Keisha Red is a 76 year old year old lady here today for 2 month follow up appointment for review of medical conditions. Overall doing okay. Back pain with weather changes. Goes to [facility] for INRs. Not following with research lab assistant. Has not gotten COVID vaccine. Will see urologist in [place] next week. Will see eye doctor soon. [...] Right shoulder s/p fall with reduction at [facility] Type II or unspecified type diabetes mellitus without mention of complication, not stated as uncontrolled Unspecified asthma(493.90) Unspecified essential hypertension Current Outpatient Medications Medication Sig oxyCODONE-acetaminophen (PERCOCET) 5-325 mg tablet Take 5-325 mg by mouth twice daily. As needed albuterol HFA (PROAIR HFA) 90 mcg/actuation inhaler Inhale 2 Puffs as instructed every 4 hours as needed for wheezing/shortness of breath. 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) cyclobenzaprine (FLEXERIL) 10 mg tablet Take [...] 4 - Moderate documented in this encounter [facility] documented as of this encounter (statuses as of 02/03/2022) [facility] History of Past illness Narrative* Problem Noted Date Resolved Date Contact dermatitis and other eczema 09/29/2005 09/16/2021 Contact dermatitis and other eczema, due to unspecified cause 09/16/2021 documented as of this encounter (statuses as of 03/31/2022) [facility] History of Past illness Narrative* Problem Noted Date Resolved Date Contact dermatitis and other eczema 09/29/2005 09/16/2021 Contact dermatitis and other eczema, due to unspecified cause 09/16/2021 documented as of this encounter (statuses as of 04/10/2022) [facility] History of Past illness Narrative* Problem Noted Date Resolved Date Contact dermatitis and other eczema 09/29/2005 09/16/2021 Contact dermatitis and other eczema, due to unspecified cause 09/16/2021 documented as of this encounter (statuses as of 04/18/2022) [address] History of Past illness Narrative* Problem Noted Date Resolved Date Contact dermatitis and other eczema 09/29/2005 09/16/2021 Contact dermatitis and other eczema, due to unspecified cause 09/16/2021 documented as of this encounter (statuses as of 05/06/2022) [facility] History of Past illness Narrative* Problem Noted Date Resolved Date Contact dermatitis and other eczema 09/29/2005 09/16/2021 Contact dermatitis and other eczema, due to unspecified cause 09/16/2021 documented as of this encounter (statuses as of 05/06/2022) [facility] History of Past illness Narrative* Problem Noted Date Resolved Date Contact dermatitis and other eczema 09/29/2005 09/16/2021 Contact dermatitis and other eczema, due to unspecified cause 09/16/2021 documented as of this encounter (statuses as of 05/07/2022) [facility] History of Past illness Narrative* Problem Noted Date Resolved Date Contact dermatitis and other eczema 09/29/2005 09/16/2021 Contact dermatitis and other eczema, due to unspecified cause 09/16/2021 documented as of this encounter (statuses as of 05/13/2022) [facility] History of Past illness Narrative* Problem Noted Date Resolved Date Contact dermatitis and other eczema 09/29/2005 09/16/2021 Contact dermatitis and other eczema, due to unspecified cause 09/16/2021 documented as of this encounter (statuses as of 06/17/2022) [facility] History of Past illness Narrative* Problem Noted Date Resolved Date Contact dermatitis and other eczema 09/29/2005 09/16/2021 Contact dermatitis and other eczema, due to unspecified cause 09/16/2021 documented as of this encounter (statuses as of 07/28/2022) [facility] History of Past illness Narrative* Problem Noted Date Resolved Date Contact dermatitis and other eczema 09/29/2005 09/16/2021 Contact dermatitis and other eczema, due to unspecified cause 09/16/2021 documented as of this encounter (statuses as of 08/21/2022) [place] [address]-05-2005 History of Past illness Narrative* Problem Noted Date Resolved Date Contact dermatitis and other eczema 09/29/2005 09/16/2021 Contact dermatitis and other eczema, due to unspecified cause 09/16/2021 documented as of this encounter (statuses as of 09/16/2022) [address] History of Past illness Narrative* Problem Noted Date Resolved Date Contact dermatitis and other eczema 09/29/2005 09/16/2021 Contact dermatitis and other eczema, due to unspecified cause 09/16/2021 documented as of this encounter (statuses as of 11/20/2022) [facility] History of Past illness Narrative* Problem Noted Date Resolved Date Contact dermatitis and other eczema 09/29/2005 09/16/2021 Contact dermatitis and other eczema, due to unspecified cause 09/16/2021 documented as of this encounter (statuses as of 12/04/2022) [facility] History of Past illness Narrative* Problem Noted Date Resolved Date Contact dermatitis and other eczema 09/29/2005 09/16/2021 Contact dermatitis and other eczema, due to unspecified cause 09/16/2021 documented as of this encounter (statuses as of 12/04/2022) [facility] History of Past illness Narrative* Problem Noted Date Resolved Date Contact dermatitis and other eczema 09/29/2005 09/16/2021 Contact dermatitis and other eczema, due to unspecified cause 09/16/2021 documented as of this encounter (statuses as of 12/26/2022) [facility] History of Past illness Narrative* Problem Noted Date Resolved Date Contact dermatitis and other eczema 09/29/2005 09/16/2021 Contact dermatitis and other eczema, due to unspecified cause 09/16/2021 documented as of this encounter (statuses as of 01/26/2023) [facility] History of Past illness Narrative* Problem Noted Date Resolved Date Contact dermatitis and other eczema 09/29/2005 09/16/2021 Contact dermatitis and other eczema, due to unspecified cause 09/16/2021 documented as of this encounter (statuses as of 03/27/2023) [facility] History of Past illness Narrative* Problem Noted Date Resolved Date Contact dermatitis and other eczema 09/29/2005 09/16/2021 Contact dermatitis and other eczema, due to unspecified cause 09/16/2021 documented as of this encounter (statuses as of 03/31/2023) [address] History of Past illness Narrative* Problem Noted Date Resolved Date Contact dermatitis and other eczema 09/29/2005 09/16/2021 Contact dermatitis and other eczema, due to unspecified cause 09/16/2021 documented as of this encounter (statuses as of 04/16/2023) [facility] History of Past illness Narrative* Problem Noted Date Resolved Date Contact dermatitis and other eczema 09/29/2005 09/16/2021 Contact dermatitis and other eczema, due to unspecified cause 09/16/2021 documented as of this encounter (statuses as of 04/16/2023) [facility] History of Past illness Narrative* Problem Noted Date Diagnosed Date Resolved Date Contact dermatitis and other eczema 09/29/2005 09/16/2021 Contact dermatitis and other eczema, due to unspecified cause 09/16/2021 documented as of this encounter (statuses as of 05/04/2023) [facility] History of Past illness Narrative* Problem Noted Date Diagnosed Date Resolved Date Contact dermatitis and other eczema 09/29/2005 09/16/2021 Contact dermatitis and other eczema, due to unspecified cause 09/16/2021 documented as of this encounter (statuses as of 05/12/2023) [facility] History of Past illness Narrative* Problem Noted Date Diagnosed Date Resolved Date Contact dermatitis and other eczema 09/29/2005 09/16/2021 Contact dermatitis and other eczema, due to unspecified cause 09/16/2021 documented as of this encounter (statuses as of 06/03/2023) [facility] History of Past illness Narrative* Problem Noted Date Diagnosed Date Resolved Date Contact dermatitis and other eczema 09/29/2005 09/16/2021 Contact dermatitis and other eczema, due to unspecified cause 09/16/2021 documented as of this encounter (statuses as of 06/23/2023) [facility] History of Past illness Narrative* Problem Noted Date Diagnosed Date Resolved Date Contact dermatitis and other eczema 09/29/2005 09/16/2021 Contact dermatitis and other eczema, due to unspecified cause 09/16/2021 documented as of this encounter (statuses as of 07/15/2023) [facility] History of Past illness Narrative* Problem Noted Date Diagnosed Date Resolved Date Contact dermatitis and other eczema 09/29/2005 09/16/2021 Contact dermatitis and other eczema, due to unspecified cause 09/16/2021 documented as of this encounter (statuses as of 07/17/2023) [facility] History of Past illness Narrative* Problem Noted Date Diagnosed Date Resolved Date Contact dermatitis and other eczema 09/29/2005 09/16/2021 Contact dermatitis and other eczema, due to unspecified cause 09/16/2021 documented as of this encounter (statuses as of 09/10/2023) [facility] History of Past illness Narrative* Problem Noted Date Diagnosed Date Resolved Date Contact dermatitis and other eczema 09/29/2005 09/16/2021 Contact dermatitis and other eczema, due to unspecified cause 09/16/2021 documented as of this encounter (statuses as of 09/18/2023) [facility] History of Past illness Narrative* Problem Noted Date Diagnosed Date Resolved Date Contact dermatitis and other eczema 09/29/2005 09/16/2021 Obesity, unspecified 023 Last Assessment & Plan: Assessment: Body mass index is 30.11 kg/m . Contact dermatitis and other eczema, due to unspecified cause 09/16/2021 Dizziness and giddiness 08/27 documented as of this encounter (statuses as of 09/23/2023) [facility] History of Past illness Narrative* Problem Noted Date Diagnosed Date Resolved Date Contact dermatitis and other eczema 09/29/2005 09/16/2021 Obesity, unspecified 023 Last Assessment & Plan: Assessment: Body mass index is 30.11 kg/m . Contact dermatitis and other eczema, due to unspecified cause 09/16/2021 Dizziness and giddiness 08/27 documented as of this encounter (statuses as of 09/30/2023) [place] [address]05-2005 History of Past illness Narrative* Problem Noted Date Diagnosed Date Resolved Date Contact dermatitis and other eczema 09/29/2005 09/16/2021 Obesity, unspecified 023 Last Assessment & Plan: Assessment: Body mass index is 30.11 kg/m . Contact dermatitis and other eczema, due to unspecified cause 09/16/2021 Dizziness and giddiness 08/27 documented as of this encounter (statuses as of 12/15/2023) [facility] note* Diagnosis Controlled type 2 diabetes mellitus [...] ligament, initial encounter documented in this encounter [facility] note* Diagnosis Controlled type 2 diabetes mellitus [...] ligament, initial encounter documented in this encounter [facility] note* Diagnosis Diabetes mellitus type 2, controlled, [...] Back strain, sequela documented in this encounter [facility] note* Diagnosis Controlled type 2 diabetes mellitus without complication, without long-term current use of insulin (HCC) [facility] Mild intermittent asthma with acute exacerbation- Primary Unspecified asthma, with exacerbation Viral upper respiratory tract infection Acute upper respiratory infections of unspecified site [facility] Diagnosis COVID-19 virus infection- Primary Diarrhea of infectious origin Diarrhea of presumed infectious origin Severe low back pain Lumbago DDD (degenerative disc disease), lumbar Degeneration of lumbar or lumbosacral intervertebral disc Acute pain of left knee Sprain of left knee, unspecified ligament, initial encounter [facility] Diagnosis DDD (degenerative disc disease), lumbar Degeneration of lumbar or lumbosacral intervertebral disc Acute pain of left knee Sprain of left knee, unspecified ligament, initial encounter Severe low back pain Lumbago [facility] Diagnosis Urinary frequency- Primary [facility] Diagnosis Controlled type 2 diabetes mellitus [...] malignant neoplasms, colon [facility] Diagnosis Strain of neck muscle, initial encounter- Primary Severe low back pain Lumbago DDD (degenerative disc disease), lumbar Degeneration of lumbar or lumbosacral intervertebral disc Encounter for therapeutic drug monitoring [facility] Back strain, subsequent encounter- [...] of insulin (HCC) [facility] Diagnosis Controlled type 2 diabetes mellitus [...] pulmonary heart diseases [facility] Cellulitis of foot- Primary Cellulitis and abscess of foot, except toes Partial thickness burn of left foot, subsequent encounter Controlled type 2 diabetes mellitus without complication, without long-term current use of insulin (HCC) [facility] Back strain, sequela Severe low back pain Lumbago DDD (degenerative disc disease), lumbar Degeneration of lumbar or lumbosacral intervertebral disc [facility] Diagnosis Diabetes mellitus with no complication (HCC)- Primary Type II or unspecified type diabetes mellitus without mention of complication, not stated as uncontrolled [facility] Diagnosis DDD (degenerative disc disease), lumbar Degeneration of lumbar or lumbosacral intervertebral disc Back Strain, recurrent Sprain of unspecified site of back [facility] Diagnosis Mild intermittent asthma without complication Unspecified asthma [facility] Diagnosis Severe low back pain- [...] of insulin (HCC) [facility] Diagnosis Severe low back pain- Primary Lumbago DDD (degenerative disc disease), lumbar Degeneration of lumbar or lumbosacral intervertebral disc documented [facility] encounter [facility] Summary Purpose Family History No Family History Records FoundNo Family History Records Found Advance Directives No Advanced Directives Records FoundDocuments on File Type Date Recorded 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 Advance Directive(s) 01/23/2021 8:35 AM Advance Directive(s) 01/11/2021 11:10 AM Reason for Referral Specialty Diagnoses / Procedures Referred By Aminata marie Referred To Contact Diagnoses Back strain, sequela Joon Reed MD [address] [place] [address] Referral ID Status Reason Start Date Expiration Date V isits Requested Visits Authorized [id number] Authorized 12/12/2022 12/27/2023 1 1 Specialty Diagnoses / Procedures Referred By Aminata marie Referred To Contact [facility] Diagnoses Back strain, subsequent encounter Muscle spasm Back strain, sequela Procedures CONSULT TO PHYSICAL THERAPY PHYSICAL THERAPY EVALUATION HIGH COMPLEX 45 MINS Nicolle Tang, ACID STRENGTH INSPECTOR.ORTHO TECH [address] [place] [address] [facility] [address] [address] Referral ID Status Reason Start Date Expiration Date Visits Requested Visits Authorized [id number] Pending Review Auto-Generat ed Referral 04/16/2023 04/15/2024 1 1 Specialty Diagnoses / Procedures Referred By Aminata marie Ref[facility] Diagnoses Mild intermittent asthma without complication Procedures SPIROMETRY - BASELINE AND POST DILATOR BRNCDILAT RSPSE SPMTRY PRE&POST-BRNCDILAT ADMN Nicolle Tang, ACID STRENGTH INSPECTOR.ORTHO TECH [address] [place] [address] [facility] [address] [place] [address] Referral ID Status Reason Start Date Expiration Date Visits Requested Visits Authorized [id number] Pending Review Auto-Generat ed Referral 04/16/2023 05/15/2024 1 1 Specialty Diagnoses / Procedures Referred By Aminata marie Referred To Contact Podiatry Diagnoses Cellulitis of foot Partial thickness burn of left foot, subsequent encounter Controlled type 2 diabetes mellitus without complication, without long-term current use of insulin (HCC) Procedures CONSULT TO PODIATRY OFFICE/OUTPATIENT NEW HIGH MDM 60-74 MINUTES Jose, Whitney, ACID STRENGTH INSPECTOR.COUNTER CLERK [address] [place] [address] Referral ID Status Reason Start Date Expiration Date Visits Requested Visits Authorized [id number] Authorized PCP Requested Referral 05/12/2023 05/11/2024 1 1 Specialty Diagnoses / Procedures Referred By Contac t Referred To Contact [facility] Diagnoses Severe low back pain DDD (degenerative disc disease), lumbar Procedures CON[facility]ULT TO [facility] OFFICE/OUTPATIENT [facility] MDM 60 MINUTES Nicolle Tang, ACID STRENGTH INSPECTOR.ORTHO TECH [address] [place] [address] Referral ID Status Reason Start Date Expiration Date Visits Requested Visits Authorized [id number] Pending Review PCP Requested Referral 12/14/2023 12/13/2024 1 1 Additional Source Comments INFORMATION SOURCE (unrecogn ized section and content) DATE CREATED AUTHOR AUTHOR'S ORGANIZ ATION 12/16/2023 [facility] Source Comments (unrecognize d section and content) In the event this informatio n is protected by the Federal Confidentiality of Alcohol and Drug Abuse Patient Records regulations: The Federal rules restrict any use of the information to criminally investigate or prosecute any alcohol or drug abuse patient.[facility] the event this information is protected by the Federal Confidentiality of Alcohol and Drug Abuse Patient Records regulations: The Federal rules restrict any use of the information to criminally investigate or prosecute any alcohol or drug abuse patient.[facility] the event this information is protected by the Federal Confidentiality of Alcohol and Drug Abuse Patient Records regulations: The Federal rules restrict any use of the information to criminally investigate or prosecute any alcohol or drug abuse patient.[facility] the event this information is protected by the Federal Confidentiality of Alcohol and Drug Abuse Patient Records regulations: The Federal rules restrict any use of the information to criminally investigate or prosecute any alcohol or drug abuse patient.[facility] the event this information is protected by the Federal Confidentiality of Alcohol and Drug Abuse Patient Records regulations: The Federal rules restrict any use of the information to criminally investigate or prosecute any alcohol or drug abuse patient.[facility] the event this information is protected by the Federal Confidentiality of Alcohol and Drug Abuse Patient Records regulations: The Federal rules restrict any use of the information to criminally investigate or prosecute any alcohol or drug abuse patient.[facility] the event this information is protected by the Federal Confidentiality of Alcohol and Drug Abuse Patient Records regulations: The Federal rules restrict any use of the information to criminally investigate or prosecute any alcohol or drug abuse patient.[facility] the event this information is protected by the Federal Confidentiality of Alcohol and Drug Abuse Patient Records regulations: The Federal rules restrict any use of the information to criminally investigate or prosecute any alcohol or drug abuse patient.[facility] the event this information is protected by the Federal Confidentiality of Alcohol and Drug Abuse Patient Records regulations: The Federal rules restrict any use of the information to criminally investigate or prosecute any alcohol or drug abuse patient.[facility] the event this information is protected by the Federal Confidentiality of Alcohol and Drug Abuse Patient Records regulations: The Federal rules restrict any use of the information to criminally investigate or prosecute any alcohol or drug abuse patient.[facility] the event this information is protected by the Federal Confidentiality of Alcohol and Drug Abuse Patient Records regulations: The Federal rules restrict any use of the information to criminally investigate or prosecute any alcohol or drug abuse patient.[facility] the event this information is protected by the Federal Confidentiality of Alcohol and Drug Abuse Patient Records regulations: The Federal rules restrict any use of the information to criminally investigate or prosecute any alcohol or drug abuse patient.[facility] the event this information is protected by the Federal Confidentiality of Alcohol and Drug Abuse Patient Records regulations: The Federal rules restrict any use of the information to criminally investigate or prosecute any alcohol or drug abuse patient.[facility] the event this information is protected by the Federal Confidentiality of Alcohol and Drug Abuse Patient Records regulations: The Federal rules restrict any use of the information to criminally investigate or prosecute any alcohol or drug abuse patient.[facility] the event this information is protected by the Federal Confidentiality of Alcohol and Drug Abuse Patient Records regulations: The Federal rules restrict any use of the information to criminally investigate or prosecute any alcohol or drug abuse patient.[facility] the event this information is protected by the Federal Confidentiality of Alcohol and Drug Abuse Patient Records regulations: The Federal rules restrict any use of the information to criminally investigate or prosecute any alcohol or drug abuse patient.[facility] the event this information is protected by the Federal Confidentiality of Alcohol and Drug Abuse Patient Records regulations: The Federal rules restrict any use of the information to criminally investigate or prosecute any alcohol or drug abuse patient.[facility] the event this information is protected by the Federal Confidentiality of Alcohol and Drug Abuse Patient Records regulations: The Federal rules restrict any use of the information to criminally investigate or prosecute any alcohol or drug abuse patient.[facility] the event this information is protected by the Federal Confidentiality of Alcohol and Drug Abuse Patient Records regulations: The Federal rules restrict any use of the information to criminally investigate or prosecute any alcohol or drug abuse patient.[facility] the event this information is protected by the Federal Confidentiality of Alcohol and Drug Abuse Patient Records regulations: The Federal rules restrict any use of the information to criminally investigate or prosecute any alcohol or drug abuse patient.[facility] the event this information is protected by the Federal Confidentiality of Alcohol and Drug Abuse Patient Records regulations: The Federal rules restrict any use of the information to criminally investigate or prosecute any alcohol or drug abuse patient.[facility] the event this information is protected by the Federal Confidentiality of Alcohol and Drug Abuse Patient Records regulations: The Federal rules restrict any use of the information to criminally investigate or prosecute any alcohol or drug abuse patient.[facility] the event this information is protected by the Federal Confidentiality of Alcohol and Drug Abuse Patient Records regulations: The Federal rules restrict any use of the information to criminally investigate or prosecute any alcohol or drug abuse patient.[facility] the event this information is protected by the Federal Confidentiality of Alcohol and Drug Abuse Patient Records regulations: The Federal rules restrict any use of the information to criminally investigate or prosecute any alcohol or drug abuse patient.[facility] the event this information is protected by the Federal Confidentiality of Alcohol and Drug Abuse Patient Records regulations: The Federal rules restrict any use of the information to criminally investigate or prosecute any alcohol or drug abuse patient.[facility] the event this information is protected by the Federal Confidentiality of Alcohol and Drug Abuse Patient Records regulations: The Federal rules restrict any use of the information to criminally investigate or prosecute any alcohol or drug abuse patient.[facility] the event this information is protected by the Federal Confidentiality of Alcohol and Drug Abuse Patient Records regulations: The Federal rules restrict any use of the information to criminally investigate or prosecute any alcohol or drug abuse patient.[facility] the event this information is protected by the Federal Confidentiality of Alcohol and Drug Abuse Patient Records regulations: The Federal rules restrict any use of the information to criminally investigate or prosecute any alcohol or drug abuse patient.[facility] the event this information is protected by the Federal Confidentiality of Alcohol and Drug Abuse Patient Records regulations: The Federal rules restrict any use of the information to criminally investigate or prosecute any alcohol or drug abuse patient.[facility] the event this information is protected by the Federal Confidentiality of Alcohol and Drug Abuse Patient Records regulations: The Federal rules restrict any use of the information to criminally investigate or prosecute any alcohol or drug abuse patient.[facility] the event this information is protected by the Federal Confidentiality of Alcohol and Drug Abuse Patient Records regulations: The Federal rules restrict any use of the information to criminally investigate or prosecute any alcohol or drug abuse patient.[facility] the event this information is protected by the Federal Confidentiality of Alcohol and Drug Abuse Patient Records regulations: The Federal rules restrict any use of the information to criminally investigate or prosecute any alcohol or drug abuse patient.[facility] the event this information is protected by the Federal Confidentiality of Alcohol and Drug Abuse Patient Records regulations: The Federal rules restrict any use of the information to criminally investigate or prosecute any alcohol or drug abuse patient.[facility] Reason for Visit (unrecogniz ed section [...] of plate 2 week ago seen in [facility] on 05/09/23.Was treated with cephalexin 500mg every 6 hours. Reason Onset Date Comments Refill Request 05/04/2023 Refill Request 06/03/2023 Reason Comments Patient Concerns Reason Comments Glucometer Order Reason Comments Severe Back Pain Reason Onset Date Comments Refill Request 09/18/2023 Reason Comments Medication Request Reason Comments referral request Care Teams (unrecognized sec tion and content) Keeper Head Relationship Specialty Start Date End Date Joon Reed MD [address] [place] [address] PCP - General 08/18/02 Keeper Head Relationship Specialty Start Date End Date Joon Reed MD [address] [place] [address] PCP - General 08/18/02 Keeper Head Relationship Specialty Start Date End Date Joon Reed MD [address] [place] [address] PCP - General 08/18/02 Keeper Head Relationship Specialty Start Date End Date Joon Reed MD [address] [place] [address], [place] [address] PCP - General 08/18/02 Keeper Head Relationship Specialty Start Date End Date Joon Reed MD [address] [place] [address], [place] [address] PCP - General 08/18/02 Keeper Head Relationship Specialty Start Date End Date Joon Reed MD [address] [place] [address], [place] [address] PCP - General 08/18/02 Keeper Head Relationship Specialty Start Date End Date Joon Reed MD [address] [place] [address], [place] [address] PCP - General 08/18/02 Keeper Head Relationship Specialty Start Date End Date Joon Reed MD [address] [place] [address], [place] [address] PCP - General 08/18/02 Keeper Head Relationship Specialty Start Date End Date Joon Reed MD [address] [place] [address], [place] [address] PCP - General 08/18/02 Keeper Head Relationship Specialty Start Date End Date Joon Rede MD [address] [place] [address], [place] [address] PCP - General 08/18/02 Keeper Head Relationship Specialty Start Date End Date Joon Reed MD [address] [place] [address], [place] [address] PCP - General 08/18/02 Keeper Head Relationship Specialty Start Date End Date Joon Reed MD [address] [place] [address], [place] [address] PCP - General 08/18/02 Keeper Head Relationship Specialty Start Date End Date Joon Reed MD [address] [place] [address] PCP - General 08/18/02 Keeper Head Relationship Specialty Start Date End Date Joon Reed MD [address] [place] [address] PCP - General 08/18/02 Keeper Head Relationship Specialty Start Date End Date Joon Reed MD [address] [place] [address] PCP - General 08/18/02 Keeper Head Relationship Specialty Start Date End Date Joon Reed MD [address] [place] [address] PCP - General 08/18/02 Keeper Head Relationship Specialty Start Date End Date Joon Reed MD [address] [place] [address] PCP - General 08/18/02 Keeper Head Relationship Specialty Start Date End Date Joon Reed MD [address] [place] [address] PCP - General 08/18/02 Keeper Head Relationship Specialty Start Date End Date Joon Reed MD [address] [place] [address] PCP - General 08/18/02 Keeper Head Relationship Specialty Start Date End Date Joon Reed MD [address] [place] [address] PCP - General 08/18/02 Keeper Head Relationship Specialty [place] [address] [place] [address] PCP - General 08/18/02 Keeper Head Relationship Specialty Start Date End Date Joon Reed MD [address] [place] [address] PCP - General 08/18/02 Keeper Head Relationship Specialty Start Date End Date Joon Reed MD [address] [place] [address] PCP - General 08/18/02 Keeper Head Relationship Specialty Start Date End Date Joon Reed MD [address], [place] [address] PCP - General 08/18/02 Keeper Head Relationship Specialty Start Date End Date Joon Reed MD [address] [place] [address] PCP - General 08/18/02 FOR RECORDS PERTAINING [...] BE BASED ON THE PRIMARY CLINICAL RECORDS. [facility] [employer] [facility]. provides no warranty or guarantee of the accuracy or completeness of information in this document.
[2023-12-29] MEDS: Ceftriaxone 1 GM/50 ML BAG IV (23:38)
[2023-12-30] VITALS (11 sets, daily range): BP systolic 100–165; BP diastolic 54–78; PULSE 60–76; RESP 16–18; TEMP 36.4–37.2; O2SAT 93–100; BMI 29.1
[2023-12-30] MEDS: 0.9% Normal Saline (1000mL) 1,000 ML 100 ML IV (01:43)
[2023-12-30] MEDS: Acetaminophen 325 MG Tablet 650 MG PO ×2 (01:45→05:55)
[2023-12-30 06:58] LABS: Bedside Glucose 123 mg/dL (74-106)
--- NOTE | 2023-12-30 07:36 | CON.PCM.UR_ITS ---
Assessment & Plan Assessment/Plan (1) Hydronephrosis, right: PLAN: Keep patient n.p.o. plan for surgery for today for cystoscopy right re trograde pyelogram right stent placement will send urine for cytology possible to do ureteroscopy and biopsy. (2) Ureteral mass: HPI Consult Data Date of Consult: 12/30/23 HPI Narrative Reason for Consultation: Right hydronephrosis HPI Narrative: ISAIAH COLLAZO, is a 78 F who presents to the hospital with severe right hydroneph rosis on review of the CAT scan she is getting hydroureter and hydronephrosis all the way down the bladder possible mass or defect within the bladder or the ureter causing obstruction will take her to surgery today for cystoscopy and right stent placement right retrograde pyelogram possible ureteroscopy and biopsy. 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 Obesity RAMESH (obstructive sleep apnea) Other secondary pulmonary hypertension Shoulder dislocation Home Medications warfarin 5 mg tablet 5 mg PO DAILY blood thinner 11/18/18 [History Last Taken 12/25/23] atorvastatin 10 mg tablet 10 mg PO QHS cholesterol 12/11/19 [History Last Taken 12/29/23] TENS unit electrodes #2 ea 07/11/20 [History Last Taken Unknown] oxycodone-acetaminophen 5 mg-325 mg tablet 1 tab PO Q8H PRN pain 12/07/20 [History Last Taken 06/15/22] cyclobenzaprine 10 mg tablet 5 - 10 mg PO BID PRN Spasms 06/17/22 [History Last Taken 12/29/23] magnesium oxide 400 mg PO DAILY supplement 06/17/22 [History Last Taken 12/29/23] metformin 500 mg tablet,extended release 24 hr 1,000 mg PO BID DM 06/17/22 [History Last Taken 12/29/23] gabapentin 300 mg capsule 300 mg PO BREAKFAST nerve pain 08/04/22 [History Last Taken 12/29/23] gabapentin 300 mg capsule 600 mg PO QHS Neuropathy 08/04/22 [History Last Taken 12/29/23] albuterol sulfate 90 mcg/actuation aerosol inhaler 2 puff inhalation Q4H PRN shortness of breath or wheezing #8.5 grams 11/26/23 [Rx Last Taken Unknown] budesonide-formoterol HFA 160 mcg-4.5 mcg/actuation aerosol inhaler (Symbicort) 2 puff inhalation BID asthma #10.2 grams 11/26/23 [Rx Last Taken 12/29/23] cyclobenzaprine 10 mg tablet 10 mg PO TID PRN Muscle Spasm #20 TABLETS 11/28/23 [Rx Last Taken Unknown] warfarin 2.5 mg tablet (Jantoven) 2.5 mg PO [place] blood thinner 12/30/23 [History Last Taken 12/29/23] Allergy/AdvReac Type Severity Reaction Status Date / Time amoxicillin Allergy Severe Hives Verified 12/29/23 15:52 aspirin Allergy Severe Hives, SOB Verified 12/29/23 15:52 Sulfa (Sulfonamide Allergy Severe Hives Verified 12/29/23 15:52 Antibiotics) Family History Mother Diabetes Father CAD (coronary artery disease) Sister Lung cancer Son Kidney stone Surgical History History of appendectomy History of kidney surgery Presence of permanent cardiac pacemaker (04/01/19) Social History household members: none housing: house number of children: 3 current occupational status: retired Smoking Status: Never smoker alcohol intake: never substance use type: does not use what type of physical activity do you participate in: none do you feel safe at home: Yes Physical Exam Const alert and oriented x3 General Appearance: cooperative HEENT normocephalic, head/scalp atraumatic, EAC's normal and TM's normal bilaterally Eyes PERRL and EOMs intact bilaterally Pupil: sluggish Neck no lymphadenopathy, supple and no JVD General: trachea midline Lymph Lymphatic: no lymphadenopathy noted, lymphedema and lymphadenopathy Resp normal respiratory effort, normal air movement and clear to auscultation bilaterally Cardio regular rate, regular rhythm and peripheral pulses 2+ throughout GI soft to palpation, non-tender and non-distended Extremity normal capillary refill and no clubbing, cyanosis or edema General Extremity: no tenderness to palpation of joints or extremities Skin no rashes or lesions noted General Skin Exam: turgor normal Lesions: no lesions Rashes: no rashes Neuro CN's II-XII intact bilaterally Speech: speech normal Motor Exam: strength 5/5 throughout; Negative for general weakness Psych thought process normal, cooperative and affect normal Appearance: appropriate Medical Records Data Attestation: I reviewed the patient's medical records Lab / Micro Data 12/29/23 19:00 12/29/23 19:00 Labs: Laboratory Results - last 24 hr 12/29/23 19:00: WBC 11.4 H, RBC 4.17 L, Hgb 13.6, Hct 39.8, MCV 95.4, MCH 32.6 H , MCHC 34.2, RDW Std Deviation 43.5, RDW Coeff of Jason 12.4, Plt Count 119 L, MPV 9.9, Immature Gran % (Auto) 0.600, Neut % (Auto) 80.5 H, Lymph % (Auto) 11.8 L, [place] % (Auto) 6.7, Eos % (Auto) 0.1, Baso % (Auto) 0.3, Absolute Neuts (auto) 9.2 H, Absolute Lymphs (auto) 1.35, Nucleated RBC % 0, PT 33.5 H, INR 3.3, Sodium 132 L, Potassium 4.5, Chloride 100, Carbon Dioxide 26.0, Anion Gap 6, BUN 15, Creatinine 1.03 H, Est GFR (MDRD) Af Amer 67, Est GFR (MDRD) Non-Af 55 L, BUN/Creatinine Ratio 14.6, Glucose 164 H, Calcium 9.2, Total Bilirubin 1.80 H, AST 32, ALT 15, Alkaline Phosphatase 91, Total Protein 8.3 H, Albumin 3.5, Globulin 4.8 H, Albumin/Globulin Ratio 0.7 L, Lipase < 10 L 12/29/23 20:16: Urine Color Yellow, Urine Clarity Sl. Cloudy, Urine pH 6.5, Ur Specific Wolf 1.010, Urine Protein 30 H, Urine Glucose (UA) Normal, Urine Ketones Negative, Urine Occult Blood 50 H, Urine Nitrite Positive H, Urine Bilirubin Negative, Urine Urobilinogen Normal, Ur Leukocyte Esterase 500 H, Urine RBC 5-10 SEEN, Urine WBC 25-50 SEEN, Ur Squamous Epith Cells 0 SEEN, Urine Bacteria 4+, Urine Mucus 0 SEEN 12/30/23 06:40: POC Glucose 123 H Imaging Radiology Impression Brain CT 12/29/23 18:30 IMPRESSION: Chronic involutional changes of the brain. Electronically Signed: Pete Vazquez MD at 21:07 EST , Abdomen/Pelvis CT 12/29/23 19:50 IMPRESSION: Right hydroureteronephrosis with distal ureteral stricture versus mass. Cystoscopic correlation recommended. Nodular contour of the liver compatible with cirrhosis. Colonic diverticulosis. No obstruction. No solid organ injury. No acute fracture seen. Electronically Signed: Pete Vazquez MD at 21:26 EST , Chest X-Ray 12/29/23 20:00 IMPRESSION: Degenerative changes, as described above. No demonstrated acute cardiopulmonary process. Electronically Signed: Pete Vazquez MD at 21:27 EST ,
[2023-12-30 07:50] LABS: Absolute Lymphocyte Count 1.07 X10^3/uL (0.83-4.51); Absolute Neutrophil Count 5.9 X10^3/uL (2.0-7.7); Basophil# 0.04 X10^3/uL; Basophil% 0.5 % (0-1); Eosinophil# 0.05 X10^3/uL; Eosinophils% 0.6 % (0-5); Hematocrit 34.9 % (37-47); Hemoglobin 11.7 g/dL (12.0-15.0); Lymphocyte # 1.07 X10^3/ul (0.83-4.51); Lymphocyte % 13.8 % (19-41); Mean Corp Hgb Conc 33.5 g/dL (32-36); Mean Corpuscular Hgb 31.7 pg (27.0-32.0); Mean Corpuscular Volume 94.6 fL (81-99); Monocyte# 0.64 X10^3/uL; Monocyte% 8.3 % (0-10); NRBC Flagged by Analyzer 0 % (0-5); Neutrophil # 5.88 X10^3/uL (2.7-7.7); Neutrophil % 76.2 % (47-70); Platelet Count 114 K/mm3 (150-450); RBC Distribution Width CV 12.3 % (11.6-14.6); RBC Distribution Width SD 42.3 fl (35.1-43.9); Red Blood Count 3.69 M/mm3 (4.2-5.4); White Blood Count 7.7 K/mm3 (4.4-11.0)
[2023-12-30 08:07] LABS: International Normalized Ratio 3.9
[2023-12-30 08:13] LABS: ALB/GLOB Ratio 0.7 RATIO (0.9-2.4); AST(SGOT) 16 U/L (15-37); Alanine Aminotransfer ALT/SGPT 11 U/L (13-56); Albumin, Serum 2.8 g/dL (3.2-5.0); Alkaline Phosphatase 71 U/L (45-117); Anion Gap 9 (5-15); BUN 17 mg/dL (7-18); BUN/Creat Ratio 18.4 RATIO (10-20); Calcium,Total 8.4 mg/dL (8.5-10.1); Chloride 103 mmol/L (98-107); Creatinine, Serum 0.92 mg/dL (0.55-1.02); EST Glomerular Filtration Rate 63 mL/min (>60); Est Glom Filt Rate - Afr Amer 76 mL/min (>60); Estimated Creatinine Clearance 60.07 ml/min; Globulin 3.8 g/dL (2.2-4.2); Glucose 125 mg/dL (74-106); Potassium 3.4 mmol/L (3.5-5.1); Protein, Total 6.6 g/dL (6.4-8.2); Sodium Level 136 mmol/L (136-145)
--- NOTE | 2023-12-30 08:30 | EKG12_ITS ---
Test Reason : PRE OP Blood Pressure : / mmHG Vent. Rate : 062 BPM Atrial Rate : 062 BPM P-R Int : 000 ms QRS Dur : 068 ms QT Int : 454 ms P-R-T Axes : 153 021 023 degrees QTc Int : 460 ms Ventricular-paced rhythm ,UNDERLYING AFIB/FLUTTER Abnormal ECG Confirmed by Naeem Adamson ([id number]), news video editor KILEY CONTI ([id number]) on 01/05/2024 8:20:19 AM Referred By: TYRONE Confirmed By:Naeem Adamson
--- NOTE | 2023-12-30 08:35 | CYSPIN_PTH ---
PATHOLOGY RESULTS PATIENT: ISAIAH COLLAZO LOC: MS3 U#:[id number] AGE/SX: 78/F ROOM: [facility] [place] RE12/29/[address]: Dr. Josesito Miller MD : 1945 BED: 1 DIS: 12/31/2023 SPEC #: [id number] RECD: 12/30/23 09:56 STATUS: BHARTI RERoxi #: [id number] EMERITA: 12/30/23 08:[address]: Devyn Samaniego DEPT: CYTOLOGY RECD BY: Marguerite Saeed ENTERED: 12/30/23 10:21 SP TYPE: CYSPIN FL OTHR DR: MD Dr. Devyn Del Real MD Dr. Liza D Talampas, MD Dr. Prakash Chand, MD Tissues: Urine Procedures: Pap Stain (control) Special Stain Group II Cytospin Fluid Comments: @ Ordering doctor for PAPS edited from to @ by MACARIO at 12/30/23 1048 @ Ordering doctor for SSII edited from to @ by MACARIO at 12/30/23 1048 @ Ordering doctor for CYSPIN edited from to @ by MACARIO at 12/30/23 1048 @ Submitting doctor edited from to @ tenzin SORTO at 12/30/23 1048 HEADER OPERATION: Right retrograde pyelogram, right stent insertion PRE-OP DIAGNOSIS: Right hydronephrosis, ureteral mass TISSUE SUBMITTED: Right ureter urine for cytology DIAGNOSIS CYTOLOGY Right ureter urine for cytology (cytospin): Atypical urothelial cells are present (AUC), Madyson System Category III. See comment. AM:teodoro 12/30/2023 COMMENT The Madyson System for urine cytology diagnostic categorization was used in the evaluation of this case. Case has been reviewed in consultation with Dr. Mcmillan who concurs with the above diagnosis. IDC:SJ CYTOLOGY STUDY Slides are reviewed. CYTOLOGY GROSS Received is 5 ml of yellow cloudy fluid labeled with the patient's name and and designated per the requisition as urine. Submitted for cytology preparation. / teodoro 12/30/2023 TC:? CPT: 16729
[2023-12-30] MEDS: Lactated Ringers 1,000 ML 15 ML IV (08:40)
--- NOTE | 2023-12-30 09:34 | PCM.PN.HOSP ---
Reason for Visit Reason for Visit: Diagnoses Unspecified hydronephrosis (12/29/23) Other specified disorders of kidney and ureter (12/29/23) Urinary tract infection, site not specified (12/29/23) Objective Data Objective Data Vital Signs: Vital Signs Temp Pulse Resp BP Pulse Ox O2 Del Method O2 Flow Rate 97.8 F 76 18 125/73 H 95 Room Air 96 12/30/23 05:58 12/30/23 08:55 12/30/23 08:55 12/30/23 05:58 12/30/23 05:58 12/30/23 07:52 12/29/23 17:53 Oxygen Flow Rate (L/min) 96 Oxygen Delivery Method Room Air Weight: 191 lb 12.835 oz Body Mass Index (BMI) 29.1 Intake & Output: Intake and Output for Last 24 Hours 12/28/23 12/29/23 12/30/23 23:59 23:59 23:59 Intake Total 550 / 550 Balance 550 / 550 Lab / Micro Data 12/30/23 07:05 12/30/23 07:05 Labs: Laboratory Results - last 24 hr 12/29/23 19:00: WBC 11.4 H, RBC 4.17 L, Hgb 13.6, Hct 39.8, MCV 95.4, MCH 32.6 H, MCHC 34.2, RDW Std Deviation 43.5, RDW Coeff of Jason 12.4, Plt Count 119 L, MPV 9.9, Immature Gran % (Auto) 0.600, Neut % (Auto) 80.5 H, Lymph % (Auto) 11.8 L, Lyon % (Auto) 6.7, Eos % (Auto) 0.1, Baso % (Auto) 0.3, Absolute Neuts (auto) 9.2 H, Absolute Lymphs (auto) 1.35, Nucleated RBC % 0, PT 33.5 H, INR 3.3, Sodium 132 L, Potassium 4.5, Chloride 100, Carbon Dioxide 26.0, Anion Gap 6, BUN 15, Creatinine 1.03 H, Est GFR (MDRD) Af Amer 67, Est GFR (MDRD) Non-Af 55 L, BUN/Creatinine Ratio 14.6, Glucose 164 H, Calcium 9.2, Total Bilirubin 1.80 H, AST 32, ALT 15, Alkaline Phosphatase 91, Total Protein 8.3 H, Albumin 3.5, Globulin 4.8 H, Albumin/Globulin Ratio 0.7 L, Lipase < 10 L 12/29/23 20:16: Urine Color Yellow, Urine Clarity Sl. Cloudy, Urine pH 6.5, Ur Specific [place] 1.010, Urine Protein 30 H, Urine Glucose (UA) Normal, Urine Ketones Negative, Urine Occult Blood 50 H, Urine Nitrite Positive H, Urine Bilirubin Negative, Urine Urobilinogen Normal, Ur Leukocyte Esterase 500 H, Urine RBC 5-10 SEEN, Urine WBC 25-50 SEEN, Ur Squamous Epith Cells 0 SEEN, Urine Bacteria 4+, Urine Mucus 0 SEEN 12/30/23 06:40: POC Glucose 123 H 12/30/23 07:05: WBC 7.7, RBC 3.69 L, Hgb 11.7 L, Hct 34.9 L, MCV 94.6, MCH 31.7, MCHC 33.5, RDW Std Deviation 42.3, RDW Coeff of Jason 12.3, Plt Count 114 L, MPV 10.0, Immature Gran % (Auto) 0.600, Neut % (Auto) 76.2 H, Lymph % (Auto) 13.8 L, Lyon % (Auto) 8.3, Eos % (Auto) 0.6, Baso % (Auto) 0.5, Absolute Neuts (auto) 5.9, Absolute Lymphs (auto) 1.07, Nucleated RBC % 0, PT 38.0 H, INR 3.9, Sodium 136, Potassium 3.4 L, Chloride 103, Carbon Dioxide 24.0, Anion Gap 9, BUN 17, Creatinine 0.92, Estim Creat Clear Calc 60.07, Est GFR (MDRD) Af Amer 76, Est GFR (MDRD) Non-Af 63, BUN/Creatinine Ratio 18.4, Glucose 125 H, Calcium 8.4 L, Total Bilirubin 1.00, AST 16, ALT 11 L, Alkaline Phosphatase 71, Total Protein 6.6, Albumin 2.8 L, Globulin 3.8, Albumin/Globulin Ratio 0.7 L Radiography Diagnostic Testing: Radiology Impression Brain CT 12/29/23 18:30 IMPRESSION: Chronic involutional changes of the brain. Electronically Signed: Pete Vazquez MD at 21:07 EST , Abdomen/Pelvis CT 12/29/23 19:50 IMPRESSION: Right hydroureteronephrosis with distal ureteral stricture versus mass. Cystoscopic correlation recommended. Nodular contour of the liver compatible with cirrhosis. Colonic diverticulosis. No obstruction. No solid organ injury. No acute fracture seen. Electronically Signed: Pete Vazquez MD at 21:26 EST , Chest X-Ray 12/29/23 20:00 IMPRESSION: Degenerative changes, as described above. No demonstrated acute cardiopulmonary process. Electronically Signed: Pete Vazquez MD at 21:27 EST , Physical Exam Narrative Seen and examined. Elderly lady. Complain of mild abdominal discomfort yesterday but not today. Had cystoscopy in the morning. No fever or chills. On warfarin Physical exam General: Alert, Oriented x3, Cooperative, BMI 29.2 kg/m? HEENT: Atraumatic, PERRLA, EOMI, Normocephalic Oral: No Gingival or Mucosal Lesions/ Ulcerations Neck: Supple, No JVD, Negative Carotid Bruits Chest wall/Lungs: Air entry diminished in bilateral lung bases. No crepitation/rhonchi Cardiovascular: A-fib, irregular rhythm, Normal S1, Normal S2, systolic murmur over right second ICS. Abdomen: Bowel Sounds Present, Soft, Non Tender, Non-Distended : No dysuria. No renal angle tenderness. No suprapubic tenderness. Extremities: Mild lower leg pitting edema, Capillary Refill Less than 3 Seconds Skin: No rashes, No breakdown Musculoskeletal: No Tenderness to Palpation of Joints or Extremities. 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 No acute focal neurological deficit. Psych/Mental Status: Normal Affect, Appropriate. Assessment & Plan Assessment/Plan (1) UTI (urinary tract infection): PLAN: Plan The patient is a 78 y/o F was admitted with recent fall on Thursday with discomfort over lower ribs and upper abdomen, hit back of head, buttock. Also patient denies burning pain/dysuria but her daughter states she gets foul-smelling urine and confusion which then turns into UTI. No fever. #1. Acute Encephalopathy secondary to Acute Complicated Urinary Tract Infection complicated by right hydroureteronephrosis with distal ureteral stricture versus mass: Patient is admitted to MedSurg floor. UA positive nitrite LE and pyuria. On empiric IV antibiotics ceftriaxone. Urine culture pending. Patient had cystoscopy with right retrograde pyelogram and urine sent for cytology and stent placement but biopsy not done because INR elevated 3.3. #2. Recent mechanical fall: CT the brain with no acute findings, CT abdomen pelvis as noted above, PT and OT. Fall precaution. #3. Diabetes mellitus type II with chronic neuropathy: Hold oral home regimen, ADA diet until n.p.o. status, accu checks w/ ISS, continue chronic home gabapentin regimen. #4. Hypertension: Clarifying but currently patient does not appear to be on antihypertensive although BP is above goal, will clarify and in the interim we will have as needed IV hydralazine. #5. Hyperlipidemia: We will continue patient on statin therapy. #6. Chronic Kidney Disease Stage III A: Admission BUN/Cr 15/1.03, GFR 55, baseline renal function primarily 0.9-1.0, stable, BMP shows BUNs/creatinine 17/0.92, better than yesterday 15/1.03. #7. PAF/flutter: Status post previous ablation, not on any rate or rhythm agent but clarifying, holding Coumadin as noted given possible intervention needs. #8. History complete heart block: Status post pacemaker placement. #9. Obesity: Weight loss and lifestyle changes encouraged. #10. Chronic asthma with allergic rhinitis: We will temporally hold home inhalers in the interim placed on ATC budesonide therapy, PRN albuterol, HOB, IS parameters. #11. RAMESH: CPAP nightly. #12. DVT prophylaxis: Holding Coumadin, presentation INR 3.3. Will repeat INR in a.m. and pending preference per Dr. Samaniego may certainly consider administering FFP for more quick reversal prior to intervention. #13. CODE status: Patient HCPOA and LW are not in place but her daughter would be her decision-maker if necessary she notes. Discussed CODE status at length including difference between FULL code, DNR-CCA and DNR-CC status. Following discussions about the differences in these status, requested Full Code status. Advanced Care Planning Face to Face Time: 16 minutes. Microbiology Past 72 Hours 12/29/23 20:16 Urine, Clean Catch Urine Culture - Preliminary Presumptive E. coli Laboratory Results 12/29/23 19:00: WBC 11.4 H, RBC 4.17 L, Hgb 13.6, Hct 39.8, MCV 95.4, MCH 32.6 H, MCHC 34.2, RDW Std Deviation 43.5, RDW Coeff of Jason 12.4, Plt Count 119 L, MPV 9.9, Immature Gran % (Auto) 0.600, Neut % (Auto) 80.5 H, Lymph % (Auto) 11.8 L, Lyon % (Auto) 6.7, Eos % (Auto) 0.1, Baso % (Auto) 0.3, Absolute Neuts (auto) 9.2 H, Absolute Lymphs (auto) 1.35, Nucleated RBC % 0, PT 33.5 H, INR 3.3, Sodium 132 L, Potassium 4.5, Chloride 100, Carbon Dioxide 26.0, Anion Gap 6, BUN 15, Creatinine 1.03 H, Est GFR (MDRD) Af Amer 67, Est GFR (MDRD) Non-Af 55 L, BUN/Creatinine Ratio 14.6, Glucose 164 H, Calcium 9.2, Total Bilirubin 1.80 H, AST 32, ALT 15, Alkaline Phosphatase 91, Total Protein 8.3 H, Albumin 3.5, Globulin 4.8 H, Albumin/Globulin Ratio 0.7 L, Lipase < 10 L 12/29/23 20:16: Urine Color Yellow, Urine Clarity Sl. Cloudy, Urine pH 6.5, Ur Specific [place] 1.010, Urine Protein 30 H, Urine Glucose (UA) Normal, Urine Ketones Negative, Urine Occult Blood 50 H, Urine Nitrite Positive H, Urine Bilirubin Negative, Urine Urobilinogen Normal, Ur Leukocyte Esterase 500 H, Urine RBC 5-10 SEEN, Urine WBC 25-50 SEEN, Ur Squamous Epith Cells 0 SEEN, Urine Bacteria 4+, Urine Mucus 0 SEEN 12/30/23 06:40: POC Glucose 123 H 12/30/23 07:05: WBC 7.7, RBC 3.69 L, Hgb 11.7 L, Hct 34.9 L, MCV 94.6, MCH 31.7, MCHC 33.5, RDW Std Deviation 42.3, RDW Coeff of Jason 12.3, Plt Count 114 L, MPV 10.0, Immature Gran % (Auto) 0.600, Neut % (Auto) 76.2 H, Lymph % (Auto) 13.8 L, Lyon % (Auto) 8.3, Eos % (Auto) 0.6, Baso % (Auto) 0.5, Absolute Neuts (auto) 5.9, Absolute Lymphs (auto) 1.07, Nucleated RBC % 0, PT 38.0 H, INR 3.9, Sodium 136, Potassium 3.4 L, Chloride 103, Carbon Dioxide 24.0, Anion Gap 9, BUN 17, Creatinine 0.92, Estim Creat Clear Calc 60.07, Est GFR (MDRD) Af Amer 76, Est GFR (MDRD) Non-Af 63, BUN/Creatinine Ratio 18.4, Glucose 125 H, Calcium 8.4 L, Total Bilirubin 1.00, AST 16, ALT 11 L, Alkaline Phosphatase 71, Total Protein 6.6, Albumin 2.8 L, Globulin 3.8, Albumin/Globulin Ratio 0.7 L 12/30/23 09:36: Miscellaneous Cytology Pending 12/30/23 11:50: POC Glucose 130 H Clinical Impression(s) from Imaging Studies Brain CT 12/29/23 18:30 IMPRESSION: Chronic involutional changes of the brain. Abdomen/Pelvis CT 12/29/23 19:50 IMPRESSION: Right hydroureteronephrosis with distal ureteral stricture versus mass. Cystoscopic correlation recommended. Nodular contour of the liver compatible with cirrhosis. Colonic diverticulosis. No obstruction. No solid organ injury. No acute fracture seen. Chest X-Ray 12/29/23 20:00 IMPRESSION: Degenerative changes, as described above. No demonstrated acute cardiopulmonary process. Electronically Signed: Pete Vazquez MD at 21:27 EST , Charges/Coding Visit Charges Inpatient E&M: 81661 Subs Hosp L2
--- NOTE | 2023-12-30 09:35 | OP.PCM_ITS ---
Report of Operation Date of Procedure: 12/30/23 Pre-Operative Diagnosis: Right obstructing mass Post-Operative Diagnosis: The same Surgery/Procedure Performed:: Cystoscopy right retrograde pyelogram urine sent for cytology and right stent placement Description of Surgical Findings:: Patient was taken back to the operating room at a smooth induction of general anesthesia she was placed in dorsolithotomy position. The urethrovaginal area p repped and draped in usual sterile fashion when the bladder with a 23 [place] rigid cystourethroscope inside the bladder I did not see any tumors or stones identified the lower right and left ureteral orifices look normal and she did have a fairly large cystocele and then cannulated the right ureteral fist with a Glidewire advanced a Pollick catheter over this we obtained urine from the right distal ureter we will send his urine for cytology I then performed a retrograde pyelogram he could see the like a cone-shaped contrast coming down to an obstruction in the distal right ureter difficult to tell for sure what it is but on CAT scan suspicious for mass. At this point the ureter was so stenotic that ureteroscopy was not capable to do this we will leave the stent in for now and the stent was placed on the right side to the unobstructed kidney. Patient anesthetic was reversed taken back to PACU in good condition she will follow-up in my office to review cytology and we will plan to set her up for a biopsy. Surgeon: Devyn Samaniego Type of Anesthesia: General Drains: stent Estimated Blood Loss (mL): 0 Admit VTE Documentation VTE Present on Admission: No VTE Mechan Device Prophylaxis: SCD's VTE Pharm Prophylaxis ordered?: No
[2023-12-30 09:58] LABS: Cytology, Body Fluid / CSF SEE PATHOLOGY REPORT
[2023-12-30] MEDS: Potassium Chloride Oral Tablet 20 MEQ 40 MEQ PO (11:51)
[2023-12-30] MEDS: Ipratropium/Albuterol Sulfate 3 ML AMPUL.NEB INHALATION (11:52)
[2023-12-30] MEDS: Glucerna Shake 120 ML LIQUID PO (11:52)
[2023-12-30 12:12] LABS: Bedside Glucose 130 mg/dL (74-106)
--- NOTE | 2023-12-30 14:15 | CASEMGMT ---
RN?CM?INVESTMENTS MANAGER?CM?to room to meet with patient for initial transition planning/care coordination?assessment.?RN?CM?introduced self and role at [facility].? Pt voices understanding and consents to?assessment?at this time.? Pt sitting up in chair in room in no distress at this time.? Pt is A/O at this time and answers all questions appropriately.?? Care providers, pharmacy, and demographics verified/updated at this time. PCP: Dr Reed Specialists: BLAYNE/cardiology, Dr Tone Alberto-pulmonology [facility]erred [facility]acy: [facility] Insurance: [place] Secure Prescription Benefit:?yes Living Will/HPOA:?Pt does not currently have LW/HCPOA, stating she has the paperwork @ home, but it is not completed. She would like to complete this. SW, Criselda, mad aware. Pt made aware, if SW not available while she is @ [facility], she can make an appt w/SW as an OP to complete. She voices appreciation. She states she would like her daughter, Brooke to be her HCPOA. LNOK: 3 adult children. 2 daughters, Brooke and Dian. Son, Juni. Living Arrangements: Lives alone in mobile home w/3 steps to enter w/railing on both sides. She states she does well w/the stairs. She states she is independent w/ADL's IADL's. Her dtr, Brooke, TESSIE, and granddaughter live across the driveway. Pt states family assists her w/medications. Transportation:?Pt states drives self and states no transportation concerns at this time.?Family will take her home @ discharge. DME: ?States has the following DME:?built-in shower seat, cane, walker. She states she also has a lot of other DME available that was her late husbands. She states she is interested in medical alert info and this was provided to her at this time. Pt states no need for further DME at this time.? HHC/SNF: No hx of either. Pt states she wishes to return home and denies need for HHC or OP therapy. Pt wishes to return home and states has no concerns with going home at time of discharge.? ?CM?to follow for any further discharge planning/needs.? Pt voices no further concerns/needs at this time.? Advised pt to ask for?CM?if any further questions/concerns/needs arise.? Voices understanding. PLAN:??Home PT/OT evals pending. Grabiel BSN?RN?CM
--- NOTE | 2023-12-30 16:16 | CASEMGMT ---
Social Work SW met with pt to validate advance directives. Pt has not completed the documents but is interested in doing so now. SW assisted pt in completing living will and HCPOA naming her daughter Brooke Mccormack. Originals given to pt and copy placed on pt chart. BRITTANY De La Cruz
[2023-12-30] MEDS: Insulin Lispro 100 UNIT/ML INSULN.PEN SC ×2 (16:41→21:39)
[2023-12-30 16:55] LABS: Bedside Glucose 314 mg/dL (74-106)
[2023-12-30] MEDS: Phenazopyridine 95 MG Tablet 190 MG PO ×2 (17:34→21:44)
[2023-12-30] MEDS: 0.9% Saline Lock 10 ML Syringe IV (21:45)
[2023-12-30] MEDS: Ceftriaxone 1 GM/50 ML BAG IV (21:45)
[2023-12-30 22:05] LABS: Bedside Glucose 199 mg/dL (74-106)
[2023-12-31 00:21] VITALS: BP 113/68; PULSE 65; RESP 16; TEMP 36.6; O2SAT 92
[2023-12-31 02:37] VITALS: BP 106/69; PULSE 63; RESP 16; TEMP 36.2; O2SAT 92
[2023-12-31 03:36] VITALS: BMI 29.2
[2023-12-31] MEDS: Acetaminophen 325 MG Tablet 650 MG PO (04:47)
[2023-12-31] MEDS: Phenazopyridine 95 MG Tablet 190 MG PO ×2 (04:48→14:02)
[2023-12-31] MEDS: oxyCODONE 5 MG Tablet PO ×2 (05:33→09:46)
[2023-12-31] MEDS: Insulin Lispro 100 UNIT/ML INSULN.PEN SC ×2 (06:29→14:02)
[2023-12-31 06:50] LABS: Bedside Glucose 159 mg/dL (74-106)
--- NOTE | 2023-12-31 07:16 | PCM.CONS.B ---
Consult Date of Consult: 12/31/23 Reason for Consult Status post cystoscopy and stent placement on the right side for suspected tumor or mass in the distal ureter patient is on Coumadin and was fully therapeutic as well. She can be discharged home when she stable my office call her and get her set up for outpatient ureteroscopy and biopsy of this mass and options of management.
[2023-12-31 08:01] VITALS: O2SAT 94
[2023-12-31 10:40] VITALS: BP 132/83; PULSE 66; RESP 14; TEMP 36.7; O2SAT 96
[2023-12-31 11:55] LABS: Bedside Glucose 236 mg/dL (74-106)
--- NOTE | 2023-12-31 12:24 | DCINST_ITS ---
Discharge Instructions Diet Discharge Diet: Low fat / Low cholesterol and 2000 mg Sodium Diet Activity Discharge Activity: Return to Normal Activity Weight Bearing Status: Weight bearing as tolerated Dressing / Incision Call your doctor if you observe: Fever of 101 or Higher, Coldness, Increased Pain, Numbness or Tingling, Change in Color, Inability to urinate, Inability to have a bowel movement, Using more than 1 pad per hour, Shortness of breath, Dizziness, Fainting spells, Swelling in the ankles, Chest pain, Prolonged hiccupping, Increased palpitations (irregular heartbeat) and Calf discomfort Follow Up Care When: IN 2 WEEKS Test Results: Test results from this visit will be discussed in further detail at your follow- up appointment, if applicable. Discharge Plan Admission Admit Date/Time: 12/29/23 23:01 Attending Provider: Josesito Miller Primary Care Provider: Ro Reed Consulting Providers: Kassi Fisher; Devyn Samaniego Instructions Additional Instructions / Restrictions: Follow with PCP to monitor INR and resume probably at lower dose. Patient needs to follow-up with Dr. Samaniego, urologist to schedule for cystoscopy with biopsy and hold warfarin prior to the procedure accordingly. Discharge Orders/Prescriptions Prescriptions: New ciprofloxacin HCl [Cipro] 500 mg tablet 500 mg PO BID 6 Days Qty: 12 0RF Continued oxycodone-acetaminophen 5-325 mg tablet 1 tab PO Q8H PRN (Reason: pain) (DME) TENS unit electrodes Pad See Rx Instructions .ROUTE .MEDSUPPLY Qty: 2 Rx Instructions: As directed Symbicort 160-4.5 mcg/actuation HFA aerosol inhaler 2 puff INHALATION BID Qty: 10.2 11RF albuterol sulfate 90 mcg/actuation HFA aerosol inhaler 2 puff INHALATION Q4H PRN (Reason: shortness of breath or wheezing) Qty: 8.5 6RF Rx Instructions: administer with spacer atorvastatin 10 MG tablet 10 mg PO QHS gabapentin 300 mg capsule 600 mg PO QHS cyclobenzaprine 10 mg Tablet 5 - 10 mg PO BID PRN (Reason: Spasms) metformin 500 mg tablet extended release 24 hr 1,000 mg PO BID Patient Comments: Take 2 tablets by mouth twice daily with meals. magnesium oxide 400 mg magnesium Tablet 400 mg PO DAILY gabapentin 300 mg capsule 300 mg PO BREAKFAST Patient Comments: Take 2 capsules by mouth daily at bedtime AND 1 capsule every morning. Rx Instructions: 300 mg orally; Held warfarin 5 MG tablet 5 mg PO DAILY Hold Instructions: Hold return resume when INR is 2.5. Follow-up with PCP Protocol: Dose Management Condition: Thursday Dose/Route: 2.5 mg Instruction: 0.5 x 5 mg tablets Condition: Thursday Dose/Route: 5 mg Instruction: 1 x 5 mg tablet Condition: Thursday Dose/Route: 5 mg Instruction: 1 x 5 mg tablet Condition: Thursday Dose/Route: 5 mg Instruction: 1 x 5 mg tablet Condition: Dose/Route: 5 mg Instruction: 1 x 5 mg tablet Condition: Thursday Dose/Route: 2.5 mg Instruction: 0.5 x 5 mg tablets Condition: Thursday Dose/Route: 2.5 mg Instruction: 0.5 x 5 mg tablets Protocol Text: Adjustment Start Date: Thursday07/10/23 INR Value: 2.3 INR Date: 07/10/23 Recheck Date: 07/31/23 Rx Instructions: 5 mg. , , THU warfarin [Jantoven] 2.5 mg tablet 2.5 mg PO SUMOTUSA Hold Instructions: Hold it until INR drops less than 2.5. Resume when INR between 2-2.5.. Discontinued cyclobenzaprine 10 mg tablet 10 mg PO TID PRN (Reason: Muscle Spasm) Qty: 20 0RF Hold Instructions: MD Ordered Referrals / Follow Up: Devyn Samaniego MD [Med Staff - Active Staff] - Within 1 Week (Please schedule for cystoscopy with biopsy) Ro Reed MD [Primary Care Provider] - Within 2 Weeks Disposition Disposition (needs filled in before D/C Order can be placed): Home, Self Care
--- NOTE | 2023-12-31 12:24 | PCM.DC.SUM ---
Providers Date of Admission: 12/29/23 Date of Discharge: 12/31/23 Primary Care Physician: Dr. Ro Reed MD Consultations 12/30/23 00:22 Consult: Urology Routine Consulting Provider: Devyn Samaniego Reason for Consult: right hydroureteronephrosis with distal ureteral stricture versus mass EMERGENT Consult: No MD Notified: Yes Date Notified: 12/30/23 Time Notified: 06:29 Method of Notification: Text Reason For Visit: UIT, R HYDRO/STONE Diagnosis Discharge Diagnosis (1) UTI (urinary tract infection): Status: Acute Code(s): N39.0 - Urinary tract infection, site not specified Plan The patient is a 78 y/o F was admitted with recent fall on Thursday with discomfort over lower ribs and upper abdomen, hit back of head, buttock. Also patient denies burning pain/dysuria but her daughter states she gets foul-smelling urine and confusion which then turns into UTI. No fever. #1. Acute Encephalopathy secondary to Acute Complicated Urinary Tract Infection complicated by right hydroureteronephrosis with distal ureteral stricture versus mass: Patient is admitted to MedSurg floor. UA positive nitrite LE and pyuria. On empiric IV antibiotics ceftriaxone. Urine culture pending. Patient had cystoscopy with right retrograde pyelogram and urine sent for cytology and stent placement but biopsy not done because INR elevated 3.3. 01/09: Acute encephalopathy has resolved. E. coli UTI complicated with right hydroureteronephrosis suggestive of pyelonephritis. E. coli is pansensitive. Patient is discharged on ciprofloxacin 500 mg twice daily for 6 more days. Patient had 3 days of IV antibiotics ceftriaxone here. Follow-up with urologist Dr. Samaniego to schedule cystoscopy with biopsy in 1 week and holding the warfarin will be according to the schedule of the procedure. #2. Recent mechanical fall: CT the brain with no acute findings, CT abdomen pelvis as noted above, PT and OT. Fall precaution. #3. Diabetes mellitus type II with chronic neuropathy: Hold oral home regimen, ADA diet until n.p.o. status, accu checks w/ ISS, continue chronic home gabapentin regimen. #4. Hypertension: Clarifying but currently patient does not appear to be on antihypertensive although BP is above goal, will clarify and in the interim we will have as needed IV hydralazine. #5. Hyperlipidemia: We will continue patient on statin therapy. #6. Chronic Kidney Disease Stage III A: Admission BUN/Cr 15/1.03, GFR 55, baseline renal function primarily 0.9-1.0, stable, BMP shows BUNs/creatinine 17/0.92, better than yesterday 15/1.03. #7. PAF/flutter: Status post previous ablation, not on any rate or rhythm agent but clarifying, holding Coumadin as noted given possible intervention needs. 12/30: INR is still elevated 3.9. PT/INR ordered. Hold it until INR about 2.5 and resume at lower dose in consultation with PCP. Monitor INR daily. Follow with PCP in 2 weeks #8. History complete heart block: Status post pacemaker placement. #9. Obesity: Weight loss and lifestyle changes encouraged. #10. Chronic asthma with allergic rhinitis: We will temporally hold home inhalers in the interim placed on ATC budesonide therapy, PRN albuterol, HOB, IS parameters. #11. RAMESH: CPAP nightly. #12. DVT prophylaxis: Holding Coumadin, presentation INR 3.3. Will repeat INR in a.m. and pending preference per Dr. Samaniego may certainly consider administering FFP for more quick reversal prior to intervention. #13. CODE status: Patient HCPOA and LW are not in place but her daughter would be her decision-maker if necessary she notes. Discussed CODE status at length including difference between FULL code, DNR-CCA and DNR-CC status. Following discussions about the differences in these status, requested Full Code status. Advanced Care Planning Face to Face Time: 16 minutes. Microbiology Past 72 Hours 12/29/23 20:16 Urine, Clean Catch Urine Culture - Preliminary Presumptive E. coli Laboratory Results 12/29/23 19:00: WBC 11.4 H, RBC 4.17 L, Hgb 13.6, Hct 39.8, MCV 95.4, MCH 32.6 H, MCHC 34.2, RDW Std Deviation 43.5, RDW Coeff of Jason 12.4, Plt Count 119 L, MPV 9.9, Immature Gran % (Auto) 0.600, Neut % (Auto) 80.5 H, Lymph % (Auto) 11.8 L, [place] % (Auto) 6.7, Eos % (Auto) 0.1, Baso % (Auto) 0.3, Absolute Neuts (auto) 9.2 H, Absolute Lymphs (auto) 1.35, Nucleated RBC % 0, PT 33.5 H, INR 3.3, Sodium 132 L, Potassium 4.5, Chloride 100, Carbon Dioxide 26.0, Anion Gap 6, BUN 15, Creatinine 1.03 H, Est GFR (MDRD) Af Amer 67, Est GFR (MDRD) Non-Af 55 L, BUN/Creatinine Ratio 14.6, Glucose 164 H, Calcium 9.2, Total Bilirubin 1.80 H, AST 32, ALT 15, Alkaline Phosphatase 91, Total Protein 8.3 H, Albumin 3.5, Globulin 4.8 H, Albumin/Globulin Ratio 0.7 L, Lipase < 10 L 12/29/23 20:16: Urine Color Yellow, Urine Clarity Sl. Cloudy, Urine pH 6.5, Ur Specific [place] 1.010, Urine Protein 30 H, Urine Glucose (UA) Normal, Urine Ketones Negative, Urine Occult Blood 50 H, Urine Nitrite Positive H, Urine Bilirubin Negative, Urine Urobilinogen Normal, Ur Leukocyte Esterase 500 H, Urine RBC 5-10 SEEN, Urine WBC 25-50 SEEN, Ur Squamous Epith Cells 0 SEEN, Urine Bacteria 4+, Urine Mucus 0 SEEN 12/30/23 06:40: POC Glucose 123 H 12/30/23 07:05: WBC 7.7, RBC 3.69 L, Hgb 11.7 L, Hct 34.9 L, MCV 94.6, MCH 31.7, MCHC 33.5, RDW Std Deviation 42.3, RDW Coeff of Jason 12.3, Plt Count 114 L, MPV 10.0, Immature Gran % (Auto) 0.600, Neut % (Auto) 76.2 H, Lymph % (Auto) 13.8 L, [place] % (Auto) 8.3, Eos % (Auto) 0.6, Baso % (Auto) 0.5, Absolute Neuts (auto) 5.9, Absolute Lymphs (auto) 1.07, Nucleated RBC % 0, PT 38.0 H, INR 3.9, Sodium 136, Potassium 3.4 L, Chloride 103, Carbon Dioxide 24.0, Anion Gap 9, BUN 17, Creatinine 0.92, Estim Creat Clear Calc 60.07, Est GFR (MDRD) Af Amer 76, Est GFR (MDRD) Non-Af 63, BUN/Creatinine Ratio 18.4, Glucose 125 H, Calcium 8.4 L, Total Bilirubin 1.00, AST 16, ALT 11 L, Alkaline Phosphatase 71, Total Protein 6.6, Albumin 2.8 L, Globulin 3.8, Albumin/Globulin Ratio 0.7 L 12/30/23 09:36: Miscellaneous Cytology Pending 12/30/23 11:50: POC Glucose 130 H Clinical Impression(s) from Imaging Studies Brain CT 12/29/23 18:30 IMPRESSION: Chronic involutional changes of the brain. Abdomen/Pelvis CT 12/29/23 19:50 IMPRESSION: Right hydroureteronephrosis with distal ureteral stricture versus mass. Cystoscopic correlation recommended. Nodular contour of the liver compatible with cirrhosis. Colonic diverticulosis. No obstruction. No solid organ injury. No acute fracture seen. Chest X-Ray 12/29/23 20:00 IMPRESSION: Degenerative changes, as described above. No demonstrated acute cardiopulmonary process. Electronically Signed: Pete Vazquez MD at 21:27 EST , Medications at Discharge Home Medications warfarin 5 mg tablet 5 mg PO DAILY blood thinner 11/18/18 atorvastatin 10 mg tablet 10 mg PO QHS cholesterol 12/11/19 TENS unit electrodes #2 ea 07/11/20 oxycodone-acetaminophen 5 mg-325 mg tablet 1 tab PO Q8H PRN pain 12/07/20 cyclobenzaprine 10 mg tablet 5 - 10 mg PO BID PRN Spasms 06/17/22 magnesium oxide 400 mg PO DAILY supplement 06/17/22 metformin 500 mg tablet,extended release 24 hr 1,000 mg PO BID DM 06/17/22 gabapentin 300 mg capsule 300 mg PO BREAKFAST nerve pain 08/04/22 gabapentin 300 mg capsule 600 mg PO QHS Neuropathy 08/04/22 albuterol sulfate 90 mcg/actuation aerosol inhaler 2 puff inhalation Q4H PRN shortness of breath or wheezing #8.5 grams 11/26/23 budesonide-formoterol HFA 160 mcg-4.5 mcg/actuation aerosol inhaler (Symbicort) 2 puff inhalation BID asthma #10.2 grams 11/26/23 warfarin 2.5 mg tablet (Jantoven) 2.5 mg PO SUMOTUSA blood thinner 12/30/23 ciprofloxacin HCl 500 mg tablet (Cipro) 500 mg PO BID 6 days #12 tabs 12/31/23 Physical Exam Narrative Seen and examined. Elderly lady. Complain of mild abdominal discomfort yesterday but not today. Had cystoscopy in the morning. No fever or chills. On warfarin Physical exam General: Alert, Oriented x3, Cooperative, BMI 29.2 kg/m? HEENT: Atraumatic, PERRLA, EOMI, Normocephalic Oral: No Gingival or Mucosal Lesions/ Ulcerations Neck: Supple, No JVD, Negative Carotid Bruits Chest wall/Lungs: Air entry diminished in bilateral lung bases. No crepitation/rhonchi Cardiovascular: A-fib, irregular rhythm, Normal S1, Normal S2, systolic murmur over right second ICS. Abdomen: Bowel Sounds Present, Soft, mild tenderness over right hypochondrium. Non-Distended : No dysuria. Mild tenderness over right renal angle. No suprapubic tenderness. Extremities: Mild lower leg pitting edema, Capillary Refill Less than 3 Seconds Skin: No rashes, No breakdown Musculoskeletal: No Tenderness to Palpation of Joints or Extremities. 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 No acute focal neurological deficit. Psych/Mental Status: Normal Affect, Appropriate. Weight / BMI Weight Weight: 192 lb 7.417 oz Body Mass Index (BMI) 29.2 ABG / Lab / Microbiology Data 12/30/23 07:05 12/30/23 07:05 Laboratory: Laboratory Results - last 24 hr 12/30/23 09:36: Miscellaneous Cytology SEE PATHOLOGY REPORT 12/30/23 16:36: POC Glucose 314 H 12/30/23 21:38: POC Glucose 199 H 12/31/23 06:28: POC Glucose 159 H 12/31/23 11:38: POC Glucose 236 H Microbiology: Microbiology 12/29/23 20:16 Urine, Clean Catch Urine Culture - Final Presumptive E. coli Meaningful Use Info Meaningful Use Diagnoses (Choose all that apply): None applicable Discharge Plan Admission Admit Date/Time: 12/29/23 23:01 Attending Provider: Josesito Miller Primary Care Provider: Ro Reed Consulting Providers: Kassi Fisher; Devyn Samaniego Instructions Additional Instructions / Restrictions: Follow with PCP to monitor INR and resume probably at lower dose. Patient needs to follow-up with Dr. Samaniego, urologist to schedule for cystoscopy with biopsy and hold warfarin prior to the procedure accordingly. Discharge Orders/Prescriptions Prescriptions: New ciprofloxacin HCl [Cipro] 500 mg tablet 500 mg PO BID 6 Days Qty: 12 0RF Continued oxycodone-acetaminophen 5-325 mg tablet 1 tab PO Q8H PRN (Reason: pain) (DME) TENS unit electrodes Pad See Rx Instructions .ROUTE .MEDSUPPLY Qty: 2 Rx Instructions: As directed Symbicort 160-4.5 mcg/actuation HFA aerosol inhaler 2 puff INHALATION BID Qty: 10.2 11RF albuterol sulfate 90 mcg/actuation HFA aerosol inhaler 2 puff INHALATION Q4H PRN (Reason: shortness of breath or wheezing) Qty: 8.5 6RF Rx Instructions: administer with spacer atorvastatin 10 MG tablet 10 mg PO QHS gabapentin 300 mg capsule 600 mg PO QHS cyclobenzaprine 10 mg Tablet 5 - 10 mg PO BID PRN (Reason: Spasms) metformin 500 mg tablet extended release 24 hr 1,000 mg PO BID Patient Comments: Take 2 tablets by mouth twice daily with meals. magnesium oxide 400 mg magnesium Tablet 400 mg PO DAILY gabapentin 300 mg capsule 300 mg PO BREAKFAST Patient Comments: Take 2 capsules by mouth daily at bedtime AND 1 capsule every morning. Rx Instructions: 300 mg orally; Held warfarin 5 MG tablet 5 mg PO DAILY Hold Instructions: Hold return resume when INR is 2.5. Follow-up with PCP Protocol: Dose Management Condition: Thursday Dose/Route: 2.5 mg Instruction: 0.5 x 5 mg tablets Condition: Thursday Dose/Route: 5 mg Instruction: 1 x 5 mg tablet Condition: Thursday Dose/Route: 5 mg Instruction: 1 x 5 mg tablet Condition: Thursday Dose/Route: 5 mg Instruction: 1 x 5 mg tablet Condition: Dose/Route: 5 mg Instruction: 1 x 5 mg tablet Condition: Thursday Dose/Route: 2.5 mg Instruction: 0.5 x 5 mg tablets Condition: Thursday Dose/Route: 2.5 mg Instruction: 0.5 x 5 mg tablets Protocol Text: Adjustment Start Date: Thursday07/10/23 INR Value: 2.3 INR Date: 07/10/23 Recheck Date: 07/31/23 Rx Instructions: 5 mg. , , THU warfarin [Jantoven] 2.5 mg tablet 2.5 mg PO [place] Hold Instructions: Hold it until INR drops less than 2.5. Resume when INR between 2-2.5.. Discontinued cyclobenzaprine 10 mg tablet 10 mg PO TID PRN (Reason: Muscle Spasm) Qty: 20 0RF Hold Instructions: MD Ordered Referrals / Follow Up: Devyn Samaniego MD [Med Staff - Active Staff] - Within 1 Week (Please schedule for cystoscopy with biopsy) Ro Reed MD [Primary Care Provider] - Within 2 Weeks Disposition Disposition (needs filled in before D/C Order can be placed): Home, Self Care Charges/Coding Visit Charges Inpatient E&M: 91448 Disch Hosp >30min
[2023-12-31 13:14] VITALS: BP 128/72; PULSE 62; RESP 12; TEMP 36.9; O2SAT 97
--- NOTE | 2023-12-31 13:17 | CASEMGMT ---
Addendum entered by Anthony Higginbotham 12/31/23 13:30: Pt declines wanting any HHC or OP therapy and Brooke was made aware of that. She states she is not surprised, as pt was supposed to get therapy for her back but pt not willing to do that. Per Dr Miller, he has spoken w/Brooke. Original Note: RN CM NOTE: Discharge order is in. Therapy notes reviewed. Additional therapy recommended. RN CM to room. Pt sitting up in chair in room, talking w/daughter, Brooke. She handed the phone to this RN CM, stating Brooke would like to talk to this RN CM. Brooke states that pt is rambling , talking about going home and about her medications, but she is not able to follow/understand the plan. Brooke states she feels pt is still having some confusion and she thinks pt may have some start of Alzheimer's and she has concerns and oanh like to talk with the doctor. She was made aware Dr Miller would be made aware she would like to talk w/him. BOONE Meyer, also made aware to call dtr, Brooke, when reviewing discharge instructions w/her so any questions she may have can be answered. Grabiel ALMEIDA RN CM
[2023-12-31 13:37] LABS: International Normalized Ratio 2.3; Prothrombin Time (Protime)PT. 24.9 SECONDS (11.7-14.9)
[2023-12-31 13:44] LABS: Anion Gap 11 (5-15); BUN 34 mg/dL (7-18); BUN/Creat Ratio 24.1 RATIO (10-20); Calcium,Total 8.9 mg/dL (8.5-10.1); Chloride 102 mmol/L (98-107); Creatinine, Serum 1.41 mg/dL (0.55-1.02); EST Glomerular Filtration Rate 39 mL/min (>60); Est Glom Filt Rate - Afr Amer 47 mL/min (>60); Estimated Creatinine Clearance 39.26 ml/min; Glucose 240 mg/dL (74-106); Potassium 4.1 mmol/L (3.5-5.1); Sodium Level 137 mmol/L (136-145)
== END 2023-12-31 16:00 | disposition home or self-care (01) | DRG 659 ==
LOC: ED 22:31 → MS3 22:39
PROVIDERS: Urology; Admitting Provider Family Medicine; Emergency Provider Emergency Medicine; PCP Internal Medicine; Visit Provider Internal Medicine
PROC: 0T768DZ Dilation of Right Ureter with Intraluminal Device, Via Natural or Artificial Opening Endoscopic (ICD-10-PCS; CPT 52332; principal; 2023-12-30 08:25)
DX: N13.6 Pyonephrosis (principal); G93.41 Metabolic encephalopathy; G93.49 Other encephalopathy; I48.92 Unspecified atrial flutter; E11.22 Type 2 diabetes mellitus with diabetic chronic kidney disease; E11.40 Type 2 diabetes mellitus with diabetic neuropathy, unspecified; B96.20 Unspecified Escherichia coli [E. coli] as the cause of diseases classified elsewhere; N18.31 Chronic kidney disease, stage 3a; I48.0 Paroxysmal atrial fibrillation; I12.9 Hypertensive chronic kidney disease with stage 1 through stage 4 chronic kidney disease, or unspecified chronic kidney disease; J45.909 Unspecified asthma, uncomplicated; E78.5 Hyperlipidemia, unspecified; G47.33 Obstructive sleep apnea (adult) (pediatric); E66.9 Obesity, unspecified; N28.89 Other specified disorders of kidney and ureter; R79.1 Abnormal coagulation profile; Z95.0 Presence of cardiac pacemaker; Z68.29 Body mass index [BMI] 29.0-29.9, adult; Z90.49 Acquired absence of other specified parts of digestive tract; Z79.01 Long term (current) use of anticoagulants; Z79.51 Long term (current) use of inhaled steroids; Z79.84 Long term (current) use of oral hypoglycemic drugs; Z79.899 Other long term (current) drug therapy; Z86.79 Personal history of other diseases of the circulatory system; Z86.16 Personal history of COVID-19
CPT/HCPCS: 36415; 70450; 71046; 74177; 76000; 80048; 80053; 81001; 82962; 83690; 85025; 85610; 87086; 87088; 87186; 88108; 88313; 93005; 94640; 94668; 97161; 97166; 99285; J7030; J7050; J7120; Q9967; A4216; C1769; C2617; J2405

== ENCOUNTER 2024-01-04 11:00 | Outpatient (RCR) | payer MEDICARE, SELFPAY ==
[2023-07-26 02:45] VITALS: BMI 29.2
[2024-01-04 11:53] LABS: International Normalized Ratio 2.1; Prothrombin Time (Protime)PT. 23.3 SECONDS (11.7-14.9)
== END 2024-01-23 18:00 | disposition home or self-care (01) ==
LOC: LAB 11:00
PROVIDERS: Family Provider Internal Medicine; PCP Internal Medicine; Referring Provider Physician Assistant Medical; Visit Provider Physician Assistant Medical
DX: I48.91 Unspecified atrial fibrillation (principal); I48.92 Unspecified atrial flutter; Z79.01 Long term (current) use of anticoagulants
CPT/HCPCS: 36415; 85610

== ENCOUNTER 2024-01-22 06:07 | Day surgery (SDC) | payer MEDICARE, SELFPAY ==
[2024-01-22] VITALS (7 sets, daily range): BP systolic 123–144; BP diastolic 68–76; PULSE 60–77; RESP 18; TEMP 36.3–36.8; O2SAT 94–100; BMI 29.2
--- NOTE | 2024-01-22 | MISC_PTH ---
PATIENT: ISAIAH COLLAZO LOC: [facility] [place] U#:[id number] AGE/SX: 78/F ROOM: RE01/22/[address]: Dr. Devyn Samaniego MD : 1945 BED: DIS: 01/22/2024 SPEC #: [id number] RECD: 01/22/24 11:45 STATUS: BHARTI RERoxi #: [id number] EMERITA: 01/22/24 00:[address]: Devyn Samaniego DEPT: SURGICAL PATHOLOGY RECD BY: Chase Tesfaye ENTERED: 01/22/24 11:46 SP TYPE: MISC OTHR DR: Dr. Ro Reed MD Tissues: Urethra, NOS Procedures: Surgery Specimen Level IV HEADER OPERATION: Right ureteroscopy, Right ureteral biopsy PRE-OP DIAGNOSIS: Ureteral tumor TISSUE SUBMITTED: Right ureteral biopsy MICROSCOPIC DIAGNOSIS Right ureteral biopsy: Fragments of urothelial mucosa with moderate chronic inflammation and minimal acute inflammation. Negative for malignancy. See comment. ANNY/mr 01/25/2024 COMMENT Clinical correlation and appropriate follow up are necessary. MICROSCOPIC DESCRIPTION Slides are reviewed. GROSS DESCRIPTION Received in fixative is one container labeled with the patient's name and designated Right ureteral biopsy. The specimen consists of three fragments of quinn soft tissue measuring in aggregate 0.6 x 0.3 x 0.1cm submitted in one cassette. ANNY/mr 01/22/24 TC:3 CPT: 16470
[2024-01-22 06:25] LABS: INR Fingerstick 1.4; Prothrombin Time Fingerstick 15.2 SEC (11.7-14.9)
[2024-01-22] MEDS: Lactated Ringers 1,000 ML 15 ML IV (07:11)
[2024-01-22 07:43] LABS: Bedside Glucose 116 mg/dL (74-106)
--- NOTE | 2024-01-22 07:43 | DCINST_ITS ---
Discharge Instructions Diet Discharge Diet: No restrictions Activity Discharge Activity: Return to Normal Activity and May Not Drive (while taking narcotic pain medications.) Dressing / Incision Call your doctor if you observe: Fever of 101 or Higher Follow Up Care Please Follow Up With: Devyn Samaniego MD When: Call [phone] for an appointment Test Results: Test results from this visit will be discussed in further detail at your follow- up appointment, if applicable. Discharge Plan Admission Primary Reason for Your Visit: Ureteroscopy and biopsy Attending Provider: Devyn Samaniego Primary Care Provider: Ro Reed Discharge Orders/Prescriptions Prescriptions: New ciprofloxacin HCl [Cipro] 500 mg tablet 500 mg PO BID Qty: 10 0RF Continued oxycodone-acetaminophen 5-325 mg tablet 1 tab PO BID PRN PRN (Reason: pain) (DME) TENS unit electrodes Pad See Rx Instructions .ROUTE .MEDSUPPLY Qty: 2 Rx Instructions: As directed albuterol sulfate 90 mcg/actuation HFA aerosol inhaler 2 puff INHALATION Q4H PRN (Reason: shortness of breath or wheezing) Qty: 8.5 6RF Rx Instructions: administer with spacer warfarin 5 MG tablet 5 mg PO MOTUWETHFR Hold Instructions: Hold return resume when INR is 2.5. Follow-up with PCP Protocol: Dose Management Condition: Thursday Dose/Route: 5 mg Instruction: 1 x 5 mg tablet Condition: Thursday Dose/Route: 5 mg Instruction: 1 x 5 mg tablet Condition: Thursday Dose/Route: 5 mg Instruction: 1 x 5 mg tablet Condition: Thursday Dose/Route: 5 mg Instruction: 1 x 5 mg tablet Condition: Dose/Route: 2.5 mg Instruction: 1 x 2.5 mg tablet Condition: Thursday Dose/Route: 2.5 mg Instruction: 1 x 2.5 mg tablet Condition: Thursday Dose/Route: 5 mg Instruction: 1 x 5 mg tablet Protocol Text: Adjustment Start Date: Thursday01/04/24 INR Value: 2.1 INR Date: 01/04/24 Recheck Date: 01/11/24 Rx Instructions: 5 mg. , , THU atorvastatin 10 MG tablet 10 mg PO QHS gabapentin 300 mg capsule 600 mg PO QHS metformin 500 mg tablet extended release 24 hr 1,000 mg PO BID Patient Comments: Take 2 tablets by mouth twice daily with meals. gabapentin 300 mg capsule 300 mg PO BREAKFAST Patient Comments: Take 2 capsules by mouth daily at bedtime AND 1 capsule every morning. Rx Instructions: 300 mg orally; warfarin [Octtoven] 2.5 mg tablet 2.5 mg PO SUSA Hold Instructions: Hold it until INR drops less than 2.5. Resume when INR between 2-2.5.. Protocol: Dose Management Condition: Thursday Dose/Route: 5 mg Instruction: 1 x 5 mg tablet Condition: Thursday Dose/Route: 5 mg Instruction: 1 x 5 mg tablet Condition: Thursday Dose/Route: 5 mg Instruction: 1 x 5 mg tablet Condition: Thursday Dose/Route: 5 mg Instruction: 1 x 5 mg tablet Condition: Dose/Route: 2.5 mg Instruction: 1 x 2.5 mg tablet Condition: Thursday Dose/Route: 2.5 mg Instruction: 1 x 2.5 mg tablet Condition: Thursday Dose/Route: 5 mg Instruction: 1 x 5 mg tablet Protocol Text: Adjustment Start Date: Thursday01/04/24 INR Value: 2.1 INR Date: 01/04/24 Recheck Date: 01/11/24 magnesium 250 mg tablet 250 mg PO DAILY cyclobenzaprine 10 mg tablet 10 mg PO TID PRN PRN (Reason: muscle spasm) Symbicort 160-4.5 mcg/actuation HFA aerosol inhaler 2 puff INHALATION BID Qty: 10.2 11RF Referrals / Follow Up: Devyn Samaniego MD [Med Staff - Active Staff] - Ro Reed MD [Primary Care Provider] - Disposition Disposition (needs filled in before D/C Order can be placed): Home, Self Care
--- NOTE | 2024-01-22 07:43 | PCM.HP.STD ---
[facility] - General General Date of Service: 01/22/24 Chief Complaint: Ureteral tumor [facility] Narrative ISAIAH COLLAZO, is a 78 F who presents for cystoscopy and biopsy of distal ureteral tumor seen on CAT scan she had a stent placed for obstruction. Will do a complete check of the kidney and decide what is the best definitive therapy for her. 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 Contact dermatitis and other eczema COVID-19 CPAP (continuous positive airway pressure) dependence DDD (degenerative disc disease) Diabetes mellitus Dietary restriction Essential hypertension Fracture of left elbow History of complete heart block History of echocardiogram History of stress test Hx of bladder infections Hydronephrosis, right Hyperlipidemia Hypersomnia jail (current) use of anticoagulants Non-smoker Obesity RAMESH (obstructive sleep apnea) Other secondary pulmonary hypertension Post-menopausal Shortness of breath on exertion Shoulder dislocation Sore on leg Ureteral mass Wears dentures Wears glasses Home Medications warfarin 5 mg tablet 5 mg PO MOTUWETHFR blood thinner 11/18/18 [History Last Taken 01/16/24] atorvastatin 10 mg tablet 10 mg PO QHS cholesterol 12/11/19 [History Last Taken 01/21/24] TENS unit electrodes #2 ea 07/11/20 [History Last Taken Unknown] oxycodone-acetaminophen 5 mg-325 mg tablet 1 tab PO BID PRN PRN pain 12/07/20 [History Last Taken 01/20/24] metformin 500 mg tablet,extended release 24 hr 1,000 mg PO BID DM 06/17/22 [History Last Taken 01/21/24] gabapentin 300 mg capsule 300 mg PO BREAKFAST nerve pain 08/04/22 [History Last Taken 01/22/24 04:00] gabapentin 300 mg capsule 600 mg PO QHS Neuropathy 08/04/22 [History Last Taken 01/21/24] albuterol sulfate 90 mcg/actuation aerosol inhaler 2 puff inhalation Q4H PRN shortness of breath or wheezing #8.5 grams 11/26/23 [Rx Last Taken 01/22/24 03:00] warfarin 2.5 mg tablet (Jantoven) 2.5 mg PO SUSA blood thinner 12/30/23 [History Last Taken 01/16/24] magnesium 250 mg tablet 250 mg PO DAILY 01/13/24 [History Last Taken 01/21/24] budesonide-formoterol HFA 160 mcg-4.5 mcg/actuation aerosol inhaler (Symbicort) 2 puff inhalation BID asthma #10.2 grams 01/20/24 [Rx Last Taken 01/22/24 03:00] ciprofloxacin HCl 500 mg tablet (Cipro) 500 mg PO BID #10 tabs 01/22/24 [Rx Last Taken Unknown] cyclobenzaprine 10 mg tablet 10 mg PO TID PRN PRN muscle spasm 01/22/24 [History Last Taken Unknown] Allergy/AdvReac Type Severity Reaction Status Date / Time amoxicillin Allergy Severe Hives Verified 01/22/24 06:34 aspirin Allergy Severe Hives, SOB Verified 01/22/24 06:34 Sulfa (Sulfonamide Allergy Severe Hives Verified 01/22/24 06:34 Antibiotics) Family History Mother Diabetes Father CAD (coronary artery disease) Sister Lung cancer Son Kidney stone Surgical History (Updated 01/13/24 @ 10:30 by Shannan Burgess) History of appendectomy History of cystoscopy History of kidney surgery Hx of left cataract extraction Hx of right cataract extraction Presence of permanent cardiac pacemaker (04/01/19) Social History household members: none housing: house number of children: 3 current occupational status: retired Smoking Status: Never smoker alcohol intake: never substance use type: does not use what type of physical activity do you participate in: none do you feel safe at home: Yes Vital Signs Vital Signs Vital Signs: 01/22/24 06:42 01/22/24 06:48 Temperature 98.2 F Temperature Source Temporal Pulse Rate 77 Respiratory Rate 18 Respiratory Pattern Normal Blood Pressure 136/72 H Blood Pressure Mean 93 Blood Pressure Source Monitor Blood Pressure Position Semi-Fowlers Blood Pressure Location Right Arm Pulse Ox 100 Oxygen Delivery Method Room Air Weight Weight: 87.18 kg Body Mass Index (BMI) 29.2 Results Lab / Micro Data Labs: Laboratory Results - last 24 hr 01/22/24 06:23: POC PT 15.2 H, INR 1.4
[2024-01-22] MEDS: Cefazolin 2 GM in 0.9% Normal Saline (100mL Bag) 100 ML IV (07:55)
--- NOTE | 2024-01-22 08:24 | PCM.OPRPT ---
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 Post-Operative Diagnosis: The same Surgery/Procedure Performed:: Cystoscopy, right retrograde pyelogram, interpretation fluoroscopic images, right ureteroscopy biopsy of ureter, balloon dilation of the ureter, and right stent placement Description of Surgical Findings:: Indication is a 78-year-old female presented with obstruction she had right hydronephrosis and what appeared to be mass on CAT scan in the distal right ureter she underwent cystoscopy and stent placement to alleviate the obstruction and Blake comes back for biopsy she has been off her Coumadin and her INR is close to normalized. She was taken back to the operating room at a smooth induction of anesthesia she was placed in dorsolithotomy position. The urethrovaginal area prepped and draped in usual sterile fashion went into the bladder with a 21 [place] rigid cystourethroscope grabbed the existing stent pulled out the meatus put a wire up to the stent and then put a Pollick catheter over the wire we performed a retrograde pyelogram see contrast going of the kidney no filling defects, and then left the wire in place and then next the wire went in with a semirigid ureteroscope was able to get into the ureter is a little tight to get in the ureter and the distal ureter but there was a gap past this I went all the way to the kidney there was no tumors or visible tumors in the renal pelvis of the kidney worked my way all the way down the ureter the urine was completely clear and at the distal ureter it was just a little bit inflamed and tight but no obvious tumor was seen we did a biopsy of the mucosa this looks biopsies look negative but will obtain a biopsy just to confirm and then I have advanced a balloon dilator and then then balloon dilated the distal ureter with a 15 [place] balloon dilator after balloon dilation was complete then I put a 7 [place] 26 cm stent and at this point I will leave that in and I will see her back in the office for review of the pathology and then may be 2 weeks after that we will get the stent out and see how she does probably will plan to do repeat imaging with another CAT scan in about 6 to 8 weeks to look at the kidney and ureter again. But today it did not look like she had an active malignancy in the distal ureter. Unless his malignancy is submucosal. Surgeon: Devyn Samaniego Type of Anesthesia: General Drains: stent Estimated Blood Loss (mL): 0 Admit VTE Documentation VTE Present on Admission: No VTE Mechan Device Prophylaxis: SCD's VTE Pharm Prophylaxis ordered?: No
[2024-01-22 09:03] LABS: Bedside Glucose 118 mg/dL (74-106)
== END 2024-01-22 09:42 | disposition home or self-care (01) ==
LOC: SDC 06:08 → AC 06:10
PROVIDERS: PCP Internal Medicine; Referring Provider Urology; Visit Provider Urology
PROC: (CPT 50575; principal; 2024-01-22 08:15)
DX: N28.9 Disorder of kidney and ureter, unspecified (principal); I48.91 Unspecified atrial fibrillation; E11.9 Type 2 diabetes mellitus without complications; E78.5 Hyperlipidemia, unspecified; I10 Essential (primary) hypertension; G47.33 Obstructive sleep apnea (adult) (pediatric); J45.909 Unspecified asthma, uncomplicated; E66.9 Obesity, unspecified; Z79.01 Long term (current) use of anticoagulants; Z79.51 Long term (current) use of inhaled steroids; Z79.899 Other long term (current) drug therapy; Z79.84 Long term (current) use of oral hypoglycemic drugs; Z86.16 Personal history of COVID-19; Z95.0 Presence of cardiac pacemaker
CPT/HCPCS: 52332; 52344; 52354; 00910; 36416; 76000; 82962; 85610; 88305; J7120; C1726; C1769; C1874; C2617; J2405

== ENCOUNTER 2024-01-29 13:30 | Observation (INO) | payer MEDICARE, SELFPAY ==
[2024-01-29] VITALS (8 sets, daily range): BP systolic 139–178; BP diastolic 70–113; PULSE 60–73; RESP 16–18; TEMP 36.6–36.7; O2SAT 96–98; BMI 30.9; BMI 29.4
--- NOTE | 2024-01-29 13:39 | EX.ED.DYSGE1 ---
HPI <Dr. Miguel Perera DO - Last Filed: 01/29/24 20:16> History of Present Illness Chief Complaint: Dizziness <GREGORY Lombardo - Last Filed: 01/29/24 16:50> Narrative Narrative: 78-year-old female with PMH of HTN, HLD, DM2, atrial flutter, pulmonary hypertension, pacemaker, asthma presents with 2 days of lightheadedness with standing and syncopal episode yesterday. After syncope she was seen at [facility] and reports having a normal pacemaker interrogation, labs and EKG, and urinalysis. She lives alone and this morning called her daughter stating she felt to weak to get out of her recliner. Her daughter came over and had her drink a bottle of water and eat toast and cheese and the patient felt a little better. However around 1 PM she was coughing and then developed 1 episode of emesis and dry heaving so they brought her in again for evaluation. She reports a cough over the last 2 days. No fever or chills. No chest pain or shortness of breath. She has a history of asthma and obstructive sleep apnea. She also had a recent ureteral stent placed by Dr. Samaniego and states she has had normal urination without hematuria or burning. [facility] <Dr. 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 Contact dermatitis and other eczema COVID-19 CPAP (continuous positive airway pressure) dependence DDD (degenerative disc disease) Diabetes mellitus Dietary restriction Essential hypertension Fracture of left elbow History of complete heart block History of echocardiogram History of stress test Hx of bladder infections Hydronephrosis, right Hyperlipidemia Hypersomnia longterm (current) use of anticoagulants Non-smoker Obesity RAMESH (obstructive sleep apnea) Other secondary pulmonary hypertension Post-menopausal Shortness of breath on exertion Shoulder dislocation Sore on leg Ureteral mass Wears dentures Wears glasses Home Medications warfarin 5 mg tablet 5 mg PO SUMOTUWESA blood thinner 11/18/18 [History Last Taken 01/16/24] atorvastatin 10 mg tablet 10 mg PO QHS cholesterol 12/11/19 [History Last Taken 01/21/24] TENS unit electrodes #2 ea 07/11/20 [History Last Taken Unknown] oxycodone-acetaminophen 5 mg-325 mg tablet 1 tab PO Q8H PRN severe pain (scale score 7-10) 12/07/20 [History Last Taken 01/20/24] metformin 500 mg tablet,extended release 24 hr 1,000 mg PO BID DM 06/17/22 [History Last Taken 01/21/24] gabapentin 300 mg capsule 300 mg PO BREAKFAST nerve pain 08/04/22 [History Last Taken 01/22/24 04:00] gabapentin 300 mg capsule 600 mg PO QHS Neuropathy 08/04/22 [History Last Taken 01/21/24] albuterol sulfate 90 mcg/actuation aerosol inhaler 2 puff inhalation Q4H PRN shortness of breath or wheezing #8.5 grams 11/26/23 [Rx Last Taken 01/22/24 03:00] warfarin 2.5 mg tablet (Jantoven) 2.5 mg PO THFR blood thinner 12/30/23 [History Last Taken 01/16/24] budesonide-formoterol HFA 160 mcg-4.5 mcg/actuation aerosol inhaler (Symbicort) 2 puff inhalation BID asthma #10.2 grams 01/20/24 [Rx Last Taken 01/22/24 03:00] cyclobenzaprine 10 mg tablet 10 mg PO TID PRN muscle spasm 01/22/24 [History Last Taken Unknown] magnesium oxide 400 mg PO DAILY SUPPLEMENT 01/29/24 [History Last Taken Unknown] Allergy/AdvReac Type Severity Reaction Status Date / Time amoxicillin Allergy Severe Hives Verified 01/29/24 13:33 aspirin Allergy Severe Hives, SOB Verified 01/29/24 13:33 Sulfa (Sulfonamide Allergy Severe Hives Verified 01/29/24 13:33 Antibiotics) Family History Mother Diabetes Father CAD (coronary artery disease) Sister Lung cancer Son Kidney stone Surgical History History of appendectomy History of cystoscopy History of kidney surgery Hx of left cataract extraction Hx of right cataract extraction Presence of permanent cardiac pacemaker (04/01/19) Social History (Updated 01/29/24 @ 17:57 by Lisandra Walsh) household members: none housing: house number of children: 3 current occupational status: retired Smoking Status: Never smoker alcohol intake: never substance use type: does not use what type of physical activity do you participate in: none do you feel safe at home: Yes ROS <GREGORY Lombardo - Last Filed: 01/29/24 16:50> ROS ED ROS Narrative Constitutional: Negative for fever, chills. CVS: Negative for palpitations, chest pain. Respiratory: Positive for cough. Negative for shortness of breath. GI: Positive for nausea, vomiting. Negative for abdominal pain, diarrhea, constipation, melena, hematochezia. : Negative for dysuria, hematuria. Neuro: Negative for headache. EXAM <Dr. Miguel Perera DO - Last Filed: 01/29/24 20:16> Physical Exam Const Vital Signs: 01/29/24 13:35 01/29/24 13:37 01/29/24 14:37 Temperature 97.9 F 97.9 F Temperature Source Oral Oral Pulse Rate 73 72 Respiratory Rate 18 16 Respiratory Effort Normal Non-Labored Respiratory Pattern Normal Blood Pressure 139/113 H 151/73 H Blood Pressure Mean 121 99 Pulse Ox 98 98 Oxygen Delivery Method Room Air Room Air 01/29/24 15:43 Temperature 98 F Temperature Source Oral Pulse Rate 72 Respiratory Rate 16 Respiratory Effort Respiratory Pattern Blood Pressure 143/70 H Blood Pressure Mean 94 Pulse Ox 98 Oxygen Delivery Method Room Air <GREGORY Lombardo - Last Filed: 01/29/24 16:50> Physical Exam Narrative Exam Narrative: CONST: Patient sitting in no acute distress. EYES: Normal inspection. ENT: Normal inspection, moist mucous membranes. NECK: Normal inspection. RESP: No respiratory distress, CTAB. CVS: Regular rate and rhythm, no murmur, no gallop. ABD: Soft with mild tenderness LLQ, no guarding or rebound. Back: Normal inspection, no CVA tenderness. SKIN: Color normal, no rash, warm, dry, intact. EXTREMITIES: Normal appearance, no pedal edema. NEURO: Oriented x4. PSYCH: Normal affect. Const Vital Signs: 01/29/24 13:35 01/29/24 13:37 01/29/24 14:37 Temperature 97.9 F 97.9 F Temperature Source Oral Oral Pulse Rate 73 72 Respiratory Rate 18 16 Respiratory Effort Normal Non-Labored Respiratory Pattern Normal Blood Pressure 139/113 H 151/73 H Blood Pressure Mean 121 99 Pulse Ox 98 98 Oxygen Delivery Method Room Air Room Air 01/29/24 15:43 Temperature 98 F Temperature Source Oral Pulse Rate 72 Respiratory Rate 16 Respiratory Effort Respiratory Pattern Blood Pressure 143/70 H Blood Pressure Mean 94 Pulse Ox 98 Oxygen Delivery Method Room Air [facility] <Dr. Miguel Perera, DO - Last Filed: 01/29/24 20:16> [facility] Narrative Medical decision making narrative: History gathered from: Patient and daughter Patient was evaluated for lightheadedness, recent cough and vomiting. She appears well and nontoxic. Afebrile with normal vital signs. On exam she has moist mucous membranes, normal cardiopulmonary exam, mild tenderness of left lower abdominal quadrant without peritoneal signs. She reports normal bladder and bowel movements. She has a ureteral stent placed a few weeks ago. CBC and BMP are unremarkable. Glucose 137 is consistent with her diabetes. She is on Coumadin for pacemaker and INR is subtherapeutic at 1.2. CXR and UA showed no evidence of infection. EKG is nonischemic and troponin is negative. At this time no source of the patient's symptoms has been found other than likely viral URI explaining her cough. Patient was able to ambulate around 4:15 PM but states she felt very lightheaded like she did earlier. She also feels very hot and cold. She is afebrile but with possible she has a viral illness with her recent cough although she tested negative for COVID/flu/influenza. She does not feel comfortable going home where she lives alone. This morning she was so lightheaded/weak she could not get out of her chair unassisted. Case will be discussed with the hospitalist. Attending note: HISTORY OF PRESENT ILLNESS: 78-year-old female presents with dizziness. Patient states this has been ongoing for the past week. Notes at that time she had stents placed in her kidney. She also endorses a cough. She further states REVIEW OF SYSTEMS: Pertinent positives: Dizziness, cough PHYSICAL EXAM: Nursing triage notes reviewed, Vital signs reviewed Constitutional: please see [facility] HENT: MMM Eyes: Pupils equal round and reactive to light, Extraocular muscles intact Neck: No stridor, no JVD, full neck ROM Lungs: Clear to auscultation, No wheezing or rales. No increased work of breathing, no conversational dyspnea, no accessory muscle use, no nasal flaring. No respiratory distress noted Heart: Regular rate and rhythm, No murmurs, No rubs and No gallops, 2+ distal pulses (radial, femoral, posterior tibial) in all extremities Abdomen: Soft, there is no tenderness, rigidity, rebound or guarding, no obvious peritoneal signs, no palpable pulsatile abdominal masses, no auscultated abdominal bruit : No CVAT Extremities: No edema Neuro: No focal neurological deficits, cranial nerves II through XII intact, 5/5 strength in all extremities. Intact sensation to light touch in all extremities, 2+ reflexes bilateral patella tendons. Normal gait. No ataxia. Skin: No rash or lesions noted MEDICAL DECISION MAKING: Chief Complaint: Dizziness, cough External records reviewed: Prior ED records reviewed: Seen in the ED on 12/29/2023 for back pain and diagnosed with nephrolithiasis, UTI. Urology was consulted at that time patient underwent cystoscopy and right retrograde pyelogram Factors affecting care: Type 2 diabetes, hyperlipidemia, A-fib status post ablation status post pacemaker, kidney stone MDM Narrative: Patient was hemodynamically stable, afebrile, nontoxic-appearing. I considered the following differential diagnosis: UTI, anemia, coagulopathy, dehydration, renal failure, COVID, pneumonia, ACS, arrhythmia We will obtain a broad lab and imaging workup to further elucidate etiology patient's complaints including PT/INR The patient and/or family, caregivers express understanding. The patient and/or family, caregivers agrees with the plan. Shared decision making: I will have a discussion with the patient and or visitors regarding risk/benefits of further testing or admission. They will be made aware of of the risk/benefits inherent in this decision they will be given the opportunity to voice understanding. Total critical care time today provided was at least 0 minutes. This excludes separately billable procedures. Critical care time (if documented) is secondary to the patient having high probability of clinically significant/life threatening deterioration in the patient's condition which required my urgent intervention. Impression: 1. Dizziness 2. Cough Dispo: Pending labs, images, reassessment, vital sign reassessment, shared decision-making discussion This note was generated with Feedbackation software. It may contain incorrect words, spelling, and punctuation that were not noted in review of the chart prior to signing. Lab Data Labs: Laboratory Results - last 24 hr 01/29/24 01/29/24 01/29/24 13:50 14:05 14:05 WBC Cancelled Corrected WBC Cancelled RBC Cancelled Hgb Cancelled Hct Cancelled MCV Cancelled MCH Cancelled MCHC Cancelled RDW Std Deviation Cancelled RDW Coeff of Jason Cancelled Plt Count Cancelled MPV Cancelled Immature Gran % (Auto) Cancelled Neut % (Auto) Cancelled Lymph % (Auto) Cancelled Leake % (Auto) Cancelled Eos % (Auto) Cancelled Baso % (Auto) Cancelled Absolute Neuts (auto) Cancelled Absolute Lymphs (auto) Cancelled Total Counted Cancelled Neutrophils % (Manual) Cancelled Band Neutrophils % Cancelled Lymphocytes % (Manual) Cancelled Monocytes % (Manual) Cancelled Eosinophils % (Manual) Cancelled Basophils % (Manual) Cancelled Metamyelocytes % Cancelled Myelocytes % Cancelled Promyelocytes % Cancelled Blast Cells % Cancelled Plasma Cell % (Manual) Cancelled Other Cells % Cancelled Nucleated RBC % Cancelled Nucleated RBCs/100 WBC Cancelled Differential Comment Cancelled Diff Path Review Cancelled Hypersegmented Neuts Cancelled Atypical Lymphocytes Cancelled Reactive Lymphocytes Cancelled Smudge Cells Cancelled Toxic Granulation Cancelled Toxic Vacuolation Cancelled Dohle Bodies Cancelled Dez Rods Cancelled Platelet Estimate Cancelled Plt Morphology Comment Cancelled RBC Morphology Cancelled Cancelled Polychromasia Cancelled Hypochromasia Cancelled Basophilic Stippling Cancelled Anisocytosis Cancelled Microcytosis Cancelled Macrocytosis Cancelled Spherocytes Cancelled Sickle Cells Cancelled Target Cells Cancelled Tear Drop Cells Cancelled Ovalocytes Cancelled Stomatocytes Cancelled Jasso-[place] Bodies Cancelled Bean Cells Cancelled Bite Cells Cancelled Crenated Cell Cancelled Acanthocytes (Spur) Cancelled Rouleaux Cancelled Schistocytes Cancelled PT Cancelled INR Cancelled Sodium 137 Potassium 4.2 Chloride 107 Carbon Dioxide 24.0 Anion Gap 6 BUN 10 Creatinine 0.82 Estim Creat Clear Calc 69.31 Est GFR (MDRD) Af Amer 87 Est GFR (MDRD) Non-Af 72 BUN/Creatinine Ratio 12.1 Glucose 137 H Calcium 8.8 Magnesium 1.2 L Total Bilirubin 1.00 AST 26 ALT 16 Alkaline Phosphatase 90 Troponin I High Sens 18 Total Protein 7.0 Albumin 3.3 Globulin 3.7 Albumin/Globulin Ratio 0.9 Urine Color Yellow Urine Clarity Clear Urine pH 7.0 Ur Specific [place] 1.005 Urine Protein 30 H Urine Glucose (UA) Normal Urine Ketones Negative Urine Occult Blood 10 H Urine Nitrite Negative Urine Bilirubin Negative Urine Urobilinogen Normal Ur Leukocyte Esterase 25 H Urine RBC 0-5 SEEN Urine WBC 0-5 SEEN Ur Squamous Epith Cells 0-5 SEEN Urine Bacteria 0 SEEN Urine Mucus 0 SEEN 01/29/24 01/29/24 14:40 15:20 WBC 4.9 Corrected WBC RBC 4.46 Hgb 14.2 Hct 44.2 MCV 99.1 H MCH 31.8 MCHC 32.1 RDW Std Deviation 47.6 H RDW Coeff of Jason 13.1 Plt Count 136 L MPV 9.6 Immature Gran % (Auto) 0.600 Neut % (Auto) 69.8 Lymph % (Auto) 18.3 L Leake % (Auto) 7.7 Eos % (Auto) 2.8 Baso % (Auto) 0.8 Absolute Neuts (auto) 3.4 Absolute Lymphs (auto) 0.90 Total Counted Neutrophils % (Manual) Band Neutrophils % Lymphocytes % (Manual) Monocytes % (Manual) Eosinophils % (Manual) Basophils % (Manual) Metamyelocytes % Myelocytes % Promyelocytes % Blast Cells % Plasma Cell % (Manual) Other Cells % Nucleated RBC % 0 Nucleated RBCs/100 WBC Differential Comment Diff Path Review Hypersegmented Neuts Atypical Lymphocytes Reactive Lymphocytes Smudge Cells Toxic Granulation Toxic Vacuolation Dohle Bodies Dez Rods Platelet Estimate Plt Morphology Comment RBC Morphology Polychromasia Hypochromasia Basophilic Stippling Anisocytosis Microcytosis Macrocytosis Spherocytes Sickle Cells Target Cells Tear Drop Cells Ovalocytes Stomatocytes Jasso-[place] Bodies Bean Cells Bite Cells Crenated Cell Acanthocytes (Spur) Rouleaux Schistocytes PT 14.8 INR 1.2 Sodium Potassium Chloride Carbon Dioxide Anion Gap BUN Creatinine Estim Creat Clear Calc Est GFR (MDRD) Af Amer Est GFR (MDRD) Non-Af BUN/Creatinine Ratio Glucose Calcium Magnesium Total Bilirubin AST ALT Alkaline Phosphatase Troponin I High Sens Total Protein Albumin Globulin Albumin/Globulin Ratio Urine Color Urine Clarity Urine pH Ur Specific [place] Urine Protein Urine Glucose (UA) Urine Ketones Urine Occult Blood Urine Nitrite Urine Bilirubin Urine Urobilinogen Ur Leukocyte Esterase Urine RBC Urine WBC Ur Squamous Epith Cells Urine Bacteria Urine Mucus Radiography Diagnostic Testing: Clinical Impression(s) from Imaging Studies Abdomen/Pelvis CT 01/29/24 13:45 IMPRESSION: Bilateral hydronephrosis and hydroureter more prominent on the right side. A right-sided double-J stent catheter is seen with the proximal tip in the right renal pelvis and distal tip in the bladder. Mild degree of left hydronephrosis. Electronically Signed: Chance Pearl MD at 14:46 EDT , Chest X-Ray 01/29/24 13:45 IMPRESSION: Hyperinflation. The lungs are clear. Electronically Signed: Chance Pearl MD at 14:47 EDT , Brain CT 01/29/24 14:44 IMPRESSION: Chronic involutional changes of the brain. Electronically Signed: Chance Pearl MD at 15:05 EDT , <GREGORY Lombardo - Last Filed: 01/29/24 16:50> [facility] Narrative Medical decision making narrative: History gathered from: Patient and daughter Patient was evaluated for lightheadedness, recent cough and vomiting. She appears well and nontoxic. Afebrile with normal vital signs. On exam she has moist mucous membranes, normal cardiopulmonary exam, mild tenderness of left lower abdominal quadrant without peritoneal signs. She reports normal bladder and bowel movements. She has a ureteral stent placed a few weeks ago. CBC and BMP are unremarkable. Glucose 137 is consistent with her diabetes. She is on Coumadin for pacemaker and INR is subtherapeutic at 1.2. CXR and UA showed no evidence of infection. EKG is nonischemic and troponin is negative. At this time no source of the patient's symptoms has been found other than likely viral URI explaining her cough. Patient was able to ambulate around 4:15 PM but states she felt very lightheaded like she did earlier. She also feels very hot and cold. She is afebrile but with possible she has a viral illness with her recent cough although she tested negative for COVID/flu/influenza. She does not feel comfortable going home where she lives alone. This morning she was so lightheaded/weak she could not get out of her chair unassisted. Case will be discussed with the hospitalist. Attending note: HISTORY OF PRESENT ILLNESS: 78-year-old female presents with dizziness. Patient states this has been ongoing for the past week. Notes at that time she had stents placed in her kidney. She also endorses a cough. She further states REVIEW OF SYSTEMS: Pertinent positives: Dizziness, cough Pertinent negatives: [] PHYSICAL EXAM: Nursing triage notes reviewed, Vital signs reviewed Constitutional: please see mdm HENT: MMM Eyes: Pupils equal round and reactive to light, Extraocular muscles intact Neck: No stridor, no JVD, full neck ROM Lungs: Clear to auscultation, No wheezing or rales. No increased work of breathing, no conversational dyspnea, no accessory muscle use, no nasal flaring. No respiratory distress noted Heart: Regular rate and rhythm, No murmurs, No rubs and No gallops, 2+ distal pulses (radial, femoral, posterior tibial) in all extremities Abdomen: Soft, there is no tenderness, rigidity, rebound or guarding, no obvious peritoneal signs, no palpable pulsatile abdominal masses, no auscultated abdominal bruit : No CVAT Extremities: No edema Neuro: No focal neurological deficits, cranial nerves II through XII intact, 5/5 strength in all extremities. Intact sensation to light touch in all extremities, 2+ reflexes bilateral patella tendons. Normal gait. No ataxia. Skin: No rash or lesions noted MEDICAL DECISION MAKING: Chief Complaint: Dizziness, cough External records reviewed: Prior ED records reviewed: Seen in the ED on 12/29/2023 for back pain and diagnosed with nephrolithiasis, UTI. Urology was consulted at that time patient underwent cystoscopy and right retrograde pyelogram Factors affecting care: Type 2 diabetes, hyperlipidemia, A-fib status post ablation status post pacemaker, kidney stone MDM Narrative: Patient was hemodynamically stable, afebrile, nontoxic-appearing. I considered the following differential diagnosis: UTI, anemia, coagulopathy, dehydration, renal failure, COVID, pneumonia, ACS, arrhythmia We will obtain a broad lab and imaging workup to further elucidate etiology patient's complaints including PT/INR The patient and/or family, caregivers express understanding. The patient and/or family, caregivers agrees with the plan. Shared decision making: I will have a discussion with the patient and or visitors regarding risk/benefits of further testing or admission. They will be made aware of of the risk/benefits inherent in this decision they will be given the opportunity to voice understanding. Total critical care time today provided was at least 0 [] minutes. This excludes separately billable procedures. Critical care time (if documented) is secondary to the patient having high probability of clinically significant/life threatening deterioration in the patient's condition which required my urgent intervention. Impression: 1. Dizziness 2. Cough Dispo: Pending labs, images, reassessment, vital sign reassessment, shared decision-making discussion This note was generated with Incipient dictation software. It may contain incorrect words, spelling, and punctuation that were not noted in review of the chart prior to signing. Lab Data Attestation: I reviewed the patient's lab results. Labs: Laboratory Results - last 24 hr 01/29/24 01/29/24 01/29/24 13:50 14:05 14:05 WBC Cancelled Corrected WBC Cancelled RBC Cancelled Hgb Cancelled Hct Cancelled MCV Cancelled MCH Cancelled MCHC Cancelled RDW Std Deviation Cancelled RDW Coeff of Jason Cancelled Plt Count Cancelled MPV Cancelled Immature Gran % (Auto) Cancelled Neut % (Auto) Cancelled Lymph % (Auto) Cancelled Leake % (Auto) Cancelled Eos % (Auto) Cancelled Baso % (Auto) Cancelled Absolute Neuts (auto) Cancelled Absolute Lymphs (auto) Cancelled Total Counted Cancelled Neutrophils % (Manual) Cancelled Band Neutrophils % Cancelled Lymphocytes % (Manual) Cancelled Monocytes % (Manual) Cancelled Eosinophils % (Manual) Cancelled Basophils % (Manual) Cancelled Metamyelocytes % Cancelled Myelocytes % Cancelled Promyelocytes % Cancelled Blast Cells % Cancelled Plasma Cell % (Manual) Cancelled Other Cells % Cancelled Nucleated RBC % Cancelled Nucleated RBCs/100 WBC Cancelled Differential Comment Cancelled Diff Path Review Cancelled Hypersegmented Neuts Cancelled Atypical Lymphocytes Cancelled Reactive Lymphocytes Cancelled Smudge Cells Cancelled Toxic Granulation Cancelled Toxic Vacuolation Cancelled Dohle Bodies Cancelled Dez Rods Cancelled Platelet Estimate Cancelled Plt Morphology Comment Cancelled RBC Morphology Cancelled Cancelled Polychromasia Cancelled Hypochromasia Cancelled Basophilic Stippling Cancelled Anisocytosis Cancelled Microcytosis Cancelled Macrocytosis Cancelled Spherocytes Cancelled Sickle Cells Cancelled Target Cells Cancelled Tear Drop Cells Cancelled Ovalocytes Cancelled Stomatocytes Cancelled [place]asso-[place] Bodies Cancelled [place] Cells Cancelled Bite Cells Cancelled Crenated Cell Cancelled Acanthocytes (Spur) Cancelled Rouleaux Cancelled Schistocytes Cancelled PT Cancelled INR Cancelled Sodium 137 Potassium 4.2 Chloride 107 Carbon Dioxide 24.0 Anion Gap 6 BUN 10 Creatinine 0.82 Estim Creat Clear Calc 69.31 Est GFR (MDRD) Af Amer 87 Est GFR (MDRD) Non-Af 72 BUN/Creatinine Ratio 12.1 Glucose 137 H Calcium 8.8 Magnesium 1.2 L Total Bilirubin 1.00 AST 26 ALT 16 Alkaline Phosphatase 90 Troponin I High Sens 18 Total Protein 7.0 Albumin 3.3 Globulin 3.7 Albumin/Globulin Ratio 0.9 Urine Color Yellow Urine Clarity Clear Urine pH 7.0 Ur Specific [place] 1.005 Urine Protein 30 H Urine Glucose (UA) Normal Urine Ketones Negative Urine Occult Blood 10 H Urine Nitrite Negative Urine Bilirubin Negative Urine Urobilinogen Normal Ur Leukocyte Esterase 25 H Urine RBC 0-5 SEEN Urine WBC 0-5 SEEN Ur Squamous Epith Cells 0-5 SEEN Urine Bacteria 0 SEEN Urine Mucus 0 SEEN 01/29/24 01/29/24 14:40 15:20 WBC 4.9 Corrected WBC RBC 4.46 Hgb 14.2 Hct 44.2 MCV 99.1 H MCH 31.8 MCHC 32.1 RDW Std Deviation 47.6 H RDW Coeff of Jason 13.1 Plt Count 136 L MPV 9.6 Immature Gran % (Auto) 0.600 Neut % (Auto) 69.8 Lymph % (Auto) 18.3 L [place]ake % (Auto) 7.7 Eos % (Auto) 2.8 Baso % (Auto) 0.8 Absolute Neuts (auto) 3.4 Absolute Lymphs (auto) 0.90 Total Counted Neutrophils % (Manual) Band Neutrophils % Lymphocytes % (Manual) Monocytes % (Manual) Eosinophils % (Manual) Basophils % (Manual) Metamyelocytes % Myelocytes % Promyelocytes % Blast Cells % Plasma Cell % (Manual) Other Cells % Nucleated RBC % 0 Nucleated RBCs/100 WBC Differential Comment Diff Path Review Hypersegmented Neuts Atypical Lymphocytes Reactive Lymphocytes Smudge Cells Toxic Granulation Toxic Vacuolation Dohle Bodies Dez Rods Platelet Estimate Plt Morphology Comment RBC Morphology Polychromasia Hypochromasia Basophilic Stippling Anisocytosis Microcytosis Macrocytosis Spherocytes Sickle Cells Target Cells Tear Drop Cells Ovalocytes Stomatocytes [place] Bodies Bean Cells Bite Cells Crenated Cell Acanthocytes (Spur) Rouleaux Schistocytes PT 14.8 INR 1.2 Sodium Potassium Chloride Carbon Dioxide Anion Gap BUN Creatinine Estim Creat Clear Calc Est GFR (MDRD) Af Amer Est GFR (MDRD) Non-Af BUN/Creatinine Ratio Glucose Calcium Magnesium Total Bilirubin AST ALT Alkaline Phosphatase Troponin I High Sens Total Protein Albumin Globulin Albumin/Globulin Ratio Urine Color Urine Clarity Urine pH Ur Specific [place] Urine Protein Urine Glucose (UA) Urine Ketones Urine Occult Blood Urine Nitrite Urine Bilirubin Urine Urobilinogen Ur Leukocyte Esterase Urine RBC Urine WBC Ur Squamous Epith Cells Urine Bacteria Urine Mucus Radiography Diagnostic Testing: Clinical Impression(s) from Imaging Studies Abdomen/Pelvis CT 01/29/24 13:45 IMPRESSION: Bilateral hydronephrosis and hydroureter more prominent on the right side. A right-sided double-J stent catheter is seen with the proximal tip in the right renal pelvis and distal tip in the bladder. Mild degree of left hydronephrosis. Electronically Signed: Chance Pearl MD at 14:46 EDT , Chest X-Ray 01/29/24 13:45 IMPRESSION: Hyperinflation. The lungs are clear. Electronically Signed: Chance Pearl MD at 14:47 EDT , Brain CT 01/29/24 14:44 IMPRESSION: Chronic involutional changes of the brain. Electronically Signed: Chance Pearl MD at 15:05 EDT , ED attending interpretation of 1-view chest x-ray shows normal heart size, no acute infiltrate. EKG Initial EKG: Attestation: I personally reviewed and interpreted this EKG as follows: Comments: Ventricular paced rhythm at 69 bpm Discharge Plan Dx/Rx/DC Orders Clinical Impression: Acute URI, Lightheadedness, Subtherapeutic international normalized ratio (INR) Disposition Disposition: Acute Care Hospital [facility] Discharge Date/Time: 01/29/24 17:27
--- NOTE | 2024-01-29 13:45 | CT_ITS ---
STUDY: CT ABDOMEN AND PELVIS WITHOUT CONTRAST REASON FOR EXAM: Female, 78 years old. Abdominal pain RADIATION DOSAGE (If Supplied By Facility): CTDIvol = ( 16.70 ) mGy, DLP = ( 813.70 ) mGycm TECHNIQUE: Transaxial images were obtained from the dome of the diaphragm to the symphysis pubis without oral contrast, and without intravenous contrast. Sagittal and coronal images were reconstructed. Individualized dose optimization techniques were used for this CT. COMPARISON: Comparison is made with prior study December 29, 2023. FINDINGS: The visualized lung bases are unremarkable. A dual-chamber pacemaker is seen. There is a diffuse contour abnormality of the liver consistent with cirrhotic changes. Normal gallbladder and extrahepatic biliary system. Normal spleen. Normal pancreas. Normal bilateral adrenal glands. There is a moderate degree of right hydronephrosis. A right-sided double-J stent catheter is seen with the proximal tip in the right renal pelvis and distal tip in the bladder. Mild degree of the left hydronephrosis. There is been essentially no change. Normal visualized stomach. Normal small intestine. There are multiple colonic diverticula consistent with diverticulosis. There is non-visualization of the appendix. There is scattered atherosclerotic calcification of the abdominal aorta and its major visceral branches, without a demonstrated aneurysm. Normal inferior vena cava. Normal retroperitoneum. Normal urinary bladder. Calcified fibroid uterus. Normal abdominal wall. There are mild degenerative changes of the visualized lumbar spine. CT/Abdomen/Pelvis without Cont IMPRESSION: Bilateral hydronephrosis and hydroureter more prominent on the right side. A right-sided double-J stent catheter is seen with the proximal tip in the right renal pelvis and distal tip in the bladder. Mild degree of left hydronephrosis. Electronically Signed: Chance Pearl MD at 14:46 EDT ,
--- NOTE | 2024-01-29 13:45 | RAD_ITS ---
STUDY: X-RAY CHEST REASON FOR EXAM: Female, 78 years old. Cough TECHNIQUE: PA and lateral views of the chest. COMPARISON: Comparison is made with prior study December 29, 2023. FINDINGS: EKG electrodes are seen. There is hyperinflation of the lungs consistent with chronic obstructive lung disease (COPD). There is no demonstrated pleural abnormality. Normal size heart. A left-sided dual-chamber pacemaker is seen. Normal mediastinum and mahendra. Normal visualized pulmonary arteries. Normal visualized aortic arch and descending thoracic aorta. There are diffuse degenerative changes of the visualized thoracic spine. Normal visualized ribs, clavicles, and shoulders. There is no demonstrated abnormality of the visualized soft tissue structures of the upper abdomen. RAD/Chest PA and Lateral IMPRESSION: Hyperinflation. The lungs are clear. Electronically Signed: Chance Pearl MD at 14:47 EDT ,
[2024-01-29 13:57] LABS: Bacteria 0 SEEN /hpf (None Seen); Mucous, Urine 0 SEEN /hpf (<or=2+)
[2024-01-29 14:02] LABS: Color, Urine Yellow (Yellow); Glucose, Dipstick Normal (Normal); Ketone-Dipstick Negative (Negative); Leukocyte Esterase-Dipstick 25 /ul (Negative); Nitrite-Dipstick Negative (Negative); Occult Blood-Urine 10 /ul (Negative); Protein-Dipstick 30 mg/dl (Negative); Specific Gravity, Urine 1.005 (1.002-1.030); Urine Bilirubin Dipstick Negative (Negative); Urine Clarity Clear (Clear); Urine Urobilinogen Normal (Normal)
[2024-01-29] MEDS: 0.9% Normal Saline (1000mL) 1,000 ML 1000 ML IV (14:12)
[2024-01-29 14:22] LABS: Red Blood Cells-Urine 0-5 SEEN /hpf (0-5); Squamous Epithelial Cells - UA 0-5 SEEN /hpf (5-10); White Blood Cells 0-5 SEEN /hpf (0-5)
[2024-01-29 14:42] LABS: ALB/GLOB Ratio 0.9 RATIO (0.9-2.4); AST(SGOT) 26 U/L (15-37); Alanine Aminotransfer ALT/SGPT 16 U/L (13-56); Albumin, Serum 3.3 g/dL (3.2-5.0); Alkaline Phosphatase 90 U/L (45-117); Anion Gap 6 (5-15); BUN 10 mg/dL (7-18); BUN/Creat Ratio 12.1 RATIO (10-20); Calcium,Total 8.8 mg/dL (8.5-10.1); Chloride 107 mmol/L (98-107); Creatinine, Serum 0.82 mg/dL (0.55-1.02); EST Glomerular Filtration Rate 72 mL/min (>60); Est Glom Filt Rate - Afr Amer 87 mL/min (>60); Estimated Creatinine Clearance 69.31 ml/min; Globulin 3.7 g/dL (2.2-4.2); Glucose 137 mg/dL (74-106); Potassium 4.2 mmol/L (3.5-5.1); Sodium Level 137 mmol/L (136-145); Troponin-I HS 18 pg/mL (3.0-54.0)
--- NOTE | 2024-01-29 14:44 | CT_ITS ---
STUDY: CT BRAIN WITHOUT CONTRAST REASON FOR EXAM: Female, 78 years old. Head injury RADIATION DOSAGE (If Supplied By Facility): CTDIvol = ( 44.99 ) mGy, DLP = ( 745.49 ) mGycm TECHNIQUE: Transaxial CT imaging of the brain was performed without administration of intravenous contrast material. Individualized dose optimization techniques were used for this CT. COMPARISON: Comparison is made with prior study December 29, 2023. FINDINGS: Normal soft tissue structures. Normal calvarium. There is mild cerebral atrophy with widening of the extra-axial spaces and ventricular dilatation. There are areas of decreased attenuation within the white matter tracts of the supratentorial brain, consistent with microvascular disease changes. Normal basal ganglia and thalami. Normal brainstem. Normal cerebellum. There is no intracranial hemorrhage. There are no findings of an acute ischemic infarction. Atherosclerotic calcification of the cavernous portions of the internal carotid arteries as well as vertebral arteries. Normal visualized paranasal sinuses. CT/Brain/Head without Contrast IMPRESSION: Chronic involutional changes of the brain. Electronically Signed: Chance Pearl MD at 15:05 EDT ,
[2024-01-29 15:28] LABS: International Normalized Ratio 1.2; Prothrombin Time (Protime)PT. 14.8 SECONDS (11.7-14.9)
--- NOTE | 2024-01-29 15:30 | ED.RN ---
voided and had diarrhea to [facility]
[2024-01-29 15:34] LABS: Absolute Neutrophil Count 3.4 X10^3/uL (2.0-7.7); Basophil# 0.04 X10^3/uL; Basophil% 0.8 % (0-1); Eosinophil# 0.14 X10^3/uL; Eosinophils% 2.8 % (0-5); Hematocrit 44.2 % (37-47); Hemoglobin 14.2 g/dL (12.0-15.0); Lymphocyte % 18.3 % (19-41); Mean Corp Hgb Conc 32.1 g/dL (32-36); Mean Corpuscular Hgb 31.8 pg (27.0-32.0); Mean Corpuscular Volume 99.1 fL (81-99); Mean Platelet Vol. 9.6 fl (6.2-12.0); Monocyte# 0.38 X10^3/uL; Monocyte% 7.7 % (0-10); NRBC Flagged by Analyzer 0 % (0-5); Neutrophil # 3.43 X10^3/uL (2.7-7.7); Neutrophil % 69.8 % (47-70); Platelet Count 136 K/mm3 (150-450); RBC Distribution Width CV 13.1 % (11.6-14.6); RBC Distribution Width SD 47.6 fl (35.1-43.9); Red Blood Count 4.46 M/mm3 (4.2-5.4); White Blood Count 4.9 K/mm3 (4.4-11.0)
--- NOTE | 2024-01-29 16:35 | PCM.HP.STD ---
HPI - General General Date of Admission: 01/29/24 Date of Service: 01/29/24 Chief Complaint: Intermittent dizziness. Syncope yesterday. HPI Narrative ISAIAH COLLZAO, is a 78 F Came to ED for dizziness intermittently. She has nonspecific complaint of not feeling good, fatigue. In ED, most of the evaluations are baseline but patient coming from the bathroom she felt dizzy and understated therefore decided for admission. Prior to that, patient went to ED after she passed out at home and was evaluated in altered mental ER. There patient had comprehensive evaluation including pacemaker interrogation was within normal limit and was offered observation but she declined and came to home. She also has right-sided hydronephrosis and left mild hydronephrosis for which she had right ureteric stent [address] Samaniego along with the biopsy of possible tumor in distal right ureter. Patient not having any acute urine complaints including burning micturition, hematuria. She completed antibiotic for ciprofloxacin but was diagnosed about 2 weeks ago. 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 Contact dermatitis and other eczema COVID-19 CPAP (continuous positive airway pressure) dependence DDD (degenerative disc disease) Diabetes mellitus Dietary restriction Essential hypertension Fracture of left elbow History of complete heart block History of echocardiogram History of stress test Hx of bladder infections Hydronephrosis, right Hyperlipidemia Hypersomnia long-term (current) use of anticoagulants Non-smoker Obesity RAMESH (obstructive sleep apnea) Other secondary pulmonary hypertension Post-menopausal Shortness of breath on exertion Shoulder dislocation Sore on leg Ureteral mass Wears dentures Wears glasses Home Medications warfarin 5 mg tablet 5 mg PO SUMOTUWESA blood thinner 11/18/18 [History Last Taken 01/16/24] atorvastatin 10 mg tablet 10 mg PO QHS cholesterol 12/11/19 [History Last Taken 01/21/24] TENS unit electrodes #2 ea 07/11/20 [History Last Taken Unknown] oxycodone-acetaminophen 5 mg-325 mg tablet 1 tab PO Q8H PRN severe pain (scale score 7-10) 12/07/20 [History Last Taken 01/20/24] metformin 500 mg tablet,extended release 24 hr 1,000 mg PO BID DM 06/17/22 [History Last Taken 01/21/24] gabapentin 300 mg capsule 300 mg PO BREAKFAST nerve pain 08/04/22 [History Last Taken 01/22/24 04:00] gabapentin 300 mg capsule 600 mg PO QHS Neuropathy 08/04/22 [History Last Taken 01/21/24] albuterol sulfate 90 mcg/actuation aerosol inhaler 2 puff inhalation Q4H PRN shortness of breath or wheezing #8.5 grams 11/26/23 [Rx Last Taken 01/22/24 03:00] warfarin 2.5 mg tablet (Jantoven) 2.5 mg PO THFR blood thinner 12/30/23 [History Last Taken 01/16/24] budesonide-formoterol HFA 160 mcg-4.5 mcg/actuation aerosol inhaler (Symbicort) 2 puff inhalation BID asthma #10.2 grams 01/20/24 [Rx Last Taken 01/22/24 03:00] cyclobenzaprine 10 mg tablet 10 mg PO TID PRN muscle spasm 01/22/24 [History Last Taken Unknown] magnesium oxide 400 mg PO DAILY SUPPLEMENT 01/29/24 [History Last Taken Unknown] Allergy/AdvReac Type Severity Reaction Status Date / Time amoxicillin Allergy Severe Hives Verified 01/29/24 13:33 aspirin Allergy Severe Hives, SOB Verified 01/29/24 13:33 Sulfa (Sulfonamide Allergy Severe Hives Verified 01/29/24 13:33 Antibiotics) Family History Mother Diabetes Father CAD (coronary artery disease) Sister Lung cancer Son Kidney stone Surgical History History of appendectomy History of cystoscopy History of kidney surgery Hx of left cataract extraction Hx of right cataract extraction Presence of permanent cardiac pacemaker (04/01/19) Social History household members: none housing: house number of children: 3 current occupational status: retired Smoking Status: Never smoker alcohol intake: never substance use type: does not use what type of physical activity do you participate in: none do you feel safe at home: Yes ROS ROS Narrative Constitutional: Reports fatigue and weakness. No fever. HEENT: Complain of zigzag line on the right eye, unilateral reports systems reviewed and no addt'l complaints, except as documented Respiratory/Chest: No acute shortness of breath or respiratory distress or wheezing. CVS: No chest pain pressure or tightness Gastrointestinal: Denies coffee ground emesis, hematemesis or vomiting Genitourinary: Right-sided hydronephrosis status post recent stent. Denies acute burning urination or new urinary tract symptoms Musculoskeletal: Chronic arthritis of knees denies acute joint pain or limited range of motion. No acute injury Neurologic: Denies seizure-like symptoms. skin: Venous ulcer on the right leg, chronic Endocrinology: Reports systems reviewed and no addt'l complaints, except as documented Hematologic/Lymphatic: Reports systems reviewed and no addt'l complaints, except as documented Rest 14 ROS are negative except as mentioned in HPI Vital Signs Vital Signs Vital Signs: 01/29/24 13:35 01/29/24 13:37 01/29/24 14:37 Temperature 97.9 F 97.9 F Temperature Source Oral Oral Pulse Rate 73 72 Respiratory Rate 18 16 Respiratory Effort Normal Non-Labored Respiratory Pattern Normal Blood Pressure 139/113 H 151/73 H Blood Pressure Mean 121 99 Pulse Ox 98 98 Oxygen Delivery Method Room Air Room Air 01/29/24 15:43 Temperature 98 F Temperature Source Oral Pulse Rate 72 Respiratory Rate 16 Respiratory Effort Respiratory Pattern Blood Pressure 143/70 H Blood Pressure Mean 94 Pulse Ox 98 Oxygen Delivery Method Room Air Weight Weight: 203 lb 4.259 oz Body Mass Index (BMI) 30.9 Physical Exam Narrative General: Alert, Oriented x3, Cooperative HEENT: Atraumatic, PERRLA, EOMI, Normocephalic Oral: Oral mucosa moist no Gingival or Mucosal Lesions/ Ulcerations Neck: Supple, No JVD, Negative Carotid Bruits Chest wall/Lungs: Air entry diminished in bilateral lung bases. No crepitation/rhonchi Cardiovascular: paced rhythm, Normal S1, Normal S2, No M/G/R Abdomen: Bowel Sounds Present, Soft, Non Tender, Non-Distended : No dysuria. No renal angle tenderness. No suprapubic tenderness. Extremities: No edema, Capillary Refill Less than 3 Seconds Skin: Chronic venous changes in both lower legs. Right lower leg is chronic venous ulcer. Left lower leg skin macerated but no opening or ulceration. Musculoskeletal: No Tenderness to Palpation of Joints or Extremities. ROM restricted at knees and knee joints Neurological: Cranial nerves II-XII grossly intact, DTR 2+/4. No acute focal neurological deficit. Psych/Mental Status: Flat affect Results Lab / Micro Data 01/29/24 15:20 01/29/24 14:05 Labs: Laboratory Results - last 24 hr 01/29/24 13:50: Urine Color Yellow, Urine Clarity Clear, Urine pH 7.0, Ur Specific [place] 1.005, Urine Protein 30 H, Urine Glucose (UA) Normal, Urine Ketones Negative, Urine Occult Blood 10 H, Urine Nitrite Negative, Urine Bilirubin Negative, Urine Urobilinogen Normal, Ur Leukocyte Esterase 25 H, Urine RBC 0-5 SEEN, Urine WBC 0-5 SEEN, Ur Squamous Epith Cells 0-5 SEEN, Urine Bacteria 0 SEEN, Urine Mucus 0 SEEN 01/29/24 14:05: WBC Cancelled, Corrected WBC Cancelled, RBC Cancelled, Hgb Cancelled, Hct Cancelled, MCV Cancelled, MCH Cancelled, MCHC Cancelled, RDW Std Deviation Cancelled, RDW Coeff of Jason Cancelled, Plt Count Cancelled, MPV Cancelled, Immature Gran % (Auto) Cancelled, Neut % (Auto) Cancelled, Lymph % (Auto) Cancelled, [place] % (Auto) Cancelled, Eos % (Auto) Cancelled, Baso % (Auto) Cancelled, Absolute Neuts (auto) Cancelled, Absolute Lymphs (auto) Cancelled, Total Counted Cancelled, Neutrophils % (Manual) Cancelled, Band Neutrophils % Cancelled, Lymphocytes % (Manual) Cancelled, Monocytes % (Manual) Cancelled, Eosinophils % (Manual) Cancelled, Basophils % (Manual) Cancelled, Metamyelocytes % Cancelled, Myelocytes % Cancelled, Promyelocytes % Cancelled, Blast Cells % Cancelled, Plasma Cell % (Manual) Cancelled, Other Cells % Cancelled, Nucleated RBC % Cancelled, Nucleated RBCs/100 WBC Cancelled, Differential Comment Cancelled, Diff Path Review Cancelled, Hypersegmented Neuts Cancelled, Atypical Lymphocytes Cancelled, Reactive Lymphocytes Cancelled, Smudge Cells Cancelled, Toxic Granulation Cancelled, Toxic Vacuolation Cancelled, Dohle Bodies Cancelled, Dez Rods Cancelled, Platelet Estimate Cancelled, Plt Morphology Comment Cancelled, RBC Morphology Cancelled 01/29/24 14:05: RBC Morphology Cancelled, Polychromasia Cancelled, Hypochromasia Cancelled, Basophilic Stippling Cancelled, Anisocytosis Cancelled, Microcytosis Cancelled, Macrocytosis Cancelled, Spherocytes Cancelled, Sickle Cells Cancelled, Target Cells Cancelled, Tear Drop Cells Cancelled, Ovalocytes Cancelled, Stomatocytes Cancelled, [place] Bodies Cancelled, Bean Cells Cancelled, Bite Cells Cancelled, Crenated Cell Cancelled, Acanthocytes (Spur) Cancelled, Rouleaux Cancelled, Schistocytes Cancelled, PT Cancelled, INR Cancelled, Sodium 137, Potassium 4.2, Chloride 107, Carbon Dioxide 24.0, Anion Gap 6, BUN 10, Creatinine 0.82, Estim Creat Clear Calc 69.31, Est GFR (MDRD) Af Amer 87, Est GFR (MDRD) Non-Af 72, BUN/Creatinine Ratio 12.1, Glucose 137 H, Calcium 8.8, Total Bilirubin 1.00, AST 26, ALT 16, Alkaline Phosphatase 90, Troponin I High Sens 18, Total Protein 7.0, Albumin 3.3, Globulin 3.7, Albumin/Globulin Ratio 0.9 01/29/24 14:40: PT 14.8, INR 1.2 01/29/24 15:20: WBC 4.9, RBC 4.46, Hgb 14.2, Hct 44.2, MCV 99.1 H, MCH 31.8, MCHC 32.1, RDW Std Deviation 47.6 H, RDW Coeff of Jason 13.1, Plt Count 136 L, MPV 9.6, Immature Gran % (Auto) 0.600, Neut % (Auto) 69.8, Lymph % (Auto) 18.3 L, [place] % (Auto) 7.7, Eos % (Auto) 2.8, Baso % (Auto) 0.8, Absolute Neuts (auto) 3.4, Absolute Lymphs (auto) 0.90, Nucleated RBC % 0 Micro: Microbiology 01/29/24 13:50 Mucosa - Nose SARS-CoV-2, Influenza & RSV (PCR) - Final Imaging Radiology Impression Abdomen/Pelvis CT 01/29/24 13:45 IMPRESSION: Bilateral hydronephrosis and hydroureter more prominent on the right side. A right-sided double-J stent catheter is seen with the proximal tip in the right renal pelvis and distal tip in the bladder. Mild degree of left hydronephrosis. Electronically Signed: Chance Pearl MD at 14:46 EDT , Chest X-Ray 01/29/24 13:45 IMPRESSION: Hyperinflation. The lungs are clear. Electronically Signed: Chance Pearl MD at 14:47 EDT , Brain CT 01/29/24 14:44 IMPRESSION: Chronic involutional changes of the brain. Electronically Signed: Chance Pearl MD at 15:05 EDT , Assessment & Plan Assessment/Plan (1) Lightheadedness: PLAN: Plan This 78-year-old female admitted for further evaluation of dizziness lightheadedness. 1. Dizziness lightheadedness decreased/restricted ADL: Patient is being admitted in 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 hall monitor. IV fluid normal saline. Orthostatic blood pressure tomorrow AM. PT and OT evaluation. Empirically started on Claritin. 2. 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 UA done and also looks benign LE 25. Mild proteinuria. 3. Diabetes mellitus type II with chronic neuropathy: Accu-Chek insulin coverage Humalog sliding scale. continue chronic home gabapentin regimen. Patient on gabapentin 300 mg at breakfast 600 mg at bedtime. Will hold it possible respiratory rate 20 #4. Hypertension: BP mildly elevated #5. Hyperlipidemia: continue patient on statin therapy. #6. Chronic Kidney Disease Stage III A:BUNs/creatinine 10/0.82. baseline renal function primarily 0.9-1.0 #7. PAF/flutter: Was evaluated yesterday. EKG shows rhythm with underlying A-fib/a flutter at 69 bpm. Continue warfarin. INR 1.2. Low #8. History complete heart block: Status post pacemaker placement. #9. Obesity, grade: Weight loss and lifestyle changes encouraged. BMI 30.9 kg/m? #10. Chronic asthma with allergic rhinitis: We will temporally hold home inhalers in the interim placed on ATC budesonide therapy, PRN albuterol, HOB, IS parameters. #11. RAMESH: CPAP nightly. #12. DVT prophylaxis: Continue warfarin Living will/advanced directive/end of life care: Patient does have living will or advanced directive. I talked to the patient's younger daughter over the phone, her POA. After discussion of benefits/risks procedures involved with full code, DNR CC arrest and DNR CC, the patient opted for DNR CC arrest with no intubation Patient doesn't want artificial life support including intubation, tube feed, ventilator and/chest compression, central venous catheter, vasopressor and DC shock if needed Total time spent in [id number] encounter in discussion of advanced directive 17 minutes. Clinical Impression(s) from Imaging Studies Abdomen/Pelvis CT 01/29/24 13:45 IMPRESSION: Bilateral hydronephrosis and hydroureter more prominent on the right side. A right-sided double-J stent catheter is seen with the proximal tip in the right renal pelvis and distal tip in the bladder. Mild degree of left hydronephrosis. Chest X-Ray 01/29/24 13:45 IMPRESSION: Hyperinflation. The lungs are clear. Brain CT 01/29/24 14:44 IMPRESSION: Chronic involutional changes of the brain. Charges/Coding Visit Charges Inpatient E&M: 44757 Init Hosp L2 Procedures Hospitalists Procedures: [id number] Advncd Care Plan 30 Min
[2024-01-29 17:32] LABS: Magnesium 1.2 mg/dL (1.6-2.6)
[2024-01-29] MEDS: 0.9% Normal Saline (1000mL) 1,000 ML 75 ML IV (18:46)
[2024-01-29] MEDS: Loratadine 10 MG Tablet PO (18:46)
[2024-01-29] MEDS: Heparin Injection (Vial) 5,000 UNIT/ML VIAL 5000 UNIT SC (21:19)
[2024-01-29] MEDS: Acetaminophen 325 MG Tablet 650 MG PO (21:29)
[2024-01-29 23:05] LABS: Bedside Glucose 129 mg/dL (74-106)
[2024-01-30] MEDS: Magnesium Sulfate 4gm/100mL 4 GM/100 ML IV.SOLN. IV (00:28)
[2024-01-30 03:02] VITALS: BP 123/94; PULSE 66; RESP 18; TEMP 36.8; O2SAT 96
[2024-01-30 05:44] VITALS: BP 141/81; BP 143/78; BP 158/75; PULSE 61; PULSE 63; PULSE 66
[2024-01-30] MEDS: Heparin Injection (Vial) 5,000 UNIT/ML VIAL 5000 UNIT SC (05:53)
[2024-01-30 06:45] LABS: Absolute Lymphocyte Count 1.09 X10^3/uL (0.83-4.51); Absolute Neutrophil Count 2.7 X10^3/uL (2.0-7.7); Basophil# 0.04 X10^3/uL; Basophil% 0.9 % (0-1); Eosinophil# 0.21 X10^3/uL; Eosinophils% 4.7 % (0-5); Hematocrit 35.8 % (37-47); Lymphocyte # 1.09 X10^3/ul (0.83-4.51); Lymphocyte % 24.4 % (19-41); Mean Corp Hgb Conc 33.5 g/dL (32-36); Mean Corpuscular Hgb 33.1 pg (27.0-32.0); Mean Corpuscular Volume 98.9 fL (81-99); Mean Platelet Vol. 9.3 fl (6.2-12.0); Monocyte# 0.43 X10^3/uL; Monocyte% 9.6 % (0-10); NRBC Flagged by Analyzer 0 % (0-5); Neutrophil # 2.68 X10^3/uL (2.7-7.7); Platelet Count 110 K/mm3 (150-450); Red Blood Count 3.62 M/mm3 (4.2-5.4); White Blood Count 4.5 K/mm3 (4.4-11.0)
[2024-01-30 07:08] LABS: Anion Gap 6 (5-15); BUN 9 mg/dL (7-18); BUN/Creat Ratio 12.4 RATIO (10-20); Calcium,Total 8.2 mg/dL (8.5-10.1); Chloride 108 mmol/L (98-107); Creatinine, Serum 0.72 mg/dL (0.55-1.02); EST Glomerular Filtration Rate 83 mL/min (>60); Est Glom Filt Rate - Afr Amer 101 mL/min (>60); Estimated Creatinine Clearance 69.35 ml/min; Glucose 124 mg/dL (74-106); Magnesium 2.2 mg/dL (1.6-2.6); Potassium 3.9 mmol/L (3.5-5.1); Sodium Level 137 mmol/L (136-145)
[2024-01-30 07:14] LABS: Bedside Glucose 127 mg/dL (74-106)
--- NOTE | 2024-01-30 08:38 | PCM.CONS.U ---
HPI Consult Data Date of Consult: 01/30/24 HPI Narrative Reason for Consultation: Right hydronephrosis HPI Narrative: ISAIAH COLLAZO, is a 78 F who presents to the hospital with some sort of vague complaints she had a CAT scan done that demonstrates the left side she has very minimal hydro this does not look pathologic no interventions necessary. On the right side she does have a stent in place she presented to hospital before with right hydronephrosis and what appeared to be a mass in the distal right ureter she underwent ureteroscopy biopsy but the biopsy came back negative on ureteroscopy she had a narrowed distal right ureter but no obvious mass unless the mass was extraluminal this CAT scan was done without contrast and a repeat CAT scan with IV contrast to get a better look at the distal right ureter. And at some point organ to consider removing the right stent but she does still have a fair amount of right hydronephrosis on the right side despite having a stent in improper position. So for now get a repeat a CAT scan with IV contrast to further evaluate her kidneys. 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 Contact dermatitis and other eczema COVID-19 CPAP (continuous positive airway pressure) dependence DDD (degenerative disc disease) Diabetes mellitus Dietary restriction Essential hypertension Fracture of left elbow History of complete heart block History of echocardiogram History of stress test Hx of bladder infections Hydronephrosis, right Hyperlipidemia Hypersomnia 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 Non-smoker Obesity RAMESH (obstructive sleep apnea) Other secondary pulmonary hypertension Post-menopausal Shortness of breath on exertion Shoulder dislocation Sore on leg Ureteral mass Wears dentures Wears glasses Home Medications warfarin 5 mg tablet 5 mg PO SUMOTUWESA blood thinner 11/18/18 [History Last Taken 01/16/24] atorvastatin 10 mg tablet 10 mg PO QHS cholesterol 12/11/19 [History Last Taken 01/21/24] TENS unit electrodes #2 ea 07/11/20 [History Last Taken Unknown] oxycodone-acetaminophen 5 mg-325 mg tablet 1 tab PO Q8H PRN severe pain (scale score 7-10) 12/07/20 [History Last Taken 01/20/24] metformin 500 mg tablet,extended release 24 hr 1,000 mg PO BID DM 06/17/22 [History Last Taken 01/21/24] gabapentin 300 mg capsule 300 mg PO BREAKFAST nerve pain 08/04/22 [History Last Taken 01/22/24 04:00] gabapentin 300 mg capsule 600 mg PO QHS Neuropathy 08/04/22 [History Last Taken 01/21/24] albuterol sulfate 90 mcg/actuation aerosol inhaler 2 puff inhalation Q4H PRN shortness of breath or wheezing #8.5 grams 11/26/23 [Rx Last Taken 01/22/24 03:00] warfarin 2.5 mg tablet (Jantoven) 2.5 mg PO THFR blood thinner 12/30/23 [History Last Taken 01/16/24] budesonide-formoterol HFA 160 mcg-4.5 mcg/actuation aerosol inhaler (Symbicort) 2 puff inhalation BID asthma #10.2 grams 01/20/24 [Rx Last Taken 01/22/24 03:00] cyclobenzaprine 10 mg tablet 10 mg PO TID PRN muscle spasm 01/22/24 [History Last Taken Unknown] magnesium oxide 400 mg PO DAILY SUPPLEMENT 01/29/24 [History Last Taken Unknown] Allergy/AdvReac Type Severity Reaction Status Date / Time amoxicillin Allergy Severe Hives Verified 01/29/24 13:33 aspirin Allergy Severe Hives, SOB Verified 01/29/24 13:33 Sulfa (Sulfonamide Allergy Severe Hives Verified 01/29/24 13:33 Antibiotics) Family History Mother Diabetes Father CAD (coronary artery disease) Sister Lung cancer Son Kidney stone Surgical History History of appendectomy History of cystoscopy History of kidney surgery Hx of left cataract extraction Hx of right cataract extraction Presence of permanent cardiac pacemaker (04/01/19) Social History (Updated 01/29/24 @ 17:57 by Lisandra Walsh) household members: none housing: house number of children: 3 current occupational status: retired Smoking Status: Never smoker alcohol intake: never substance use type: does not use what type of physical activity do you participate in: none do you feel safe at home: Yes Lab / Micro Data 01/30/24 05:55 01/30/24 05:55 Labs: Laboratory Results - last 24 hr 01/29/24 13:50: Urine Color Yellow, Urine Clarity Clear, Urine pH 7.0, Ur Specific [place] 1.005, Urine Protein 30 H, Urine Glucose (UA) Normal, Urine Ketones Negative, Urine Occult Blood 10 H, Urine Nitrite Negative, Urine Bilirubin Negative, Urine Urobilinogen Normal, Ur Leukocyte Esterase 25 H, Urine RBC 0-5 SEEN, Urine WBC 0-5 SEEN, Ur Squamous Epith Cells 0-5 SEEN, Urine Bacteria 0 SEEN, Urine Mucus 0 SEEN 01/29/24 14:05: WBC Cancelled, Corrected WBC Cancelled, RBC Cancelled, Hgb Cancelled, Hct Cancelled, MCV Cancelled, MCH Cancelled, MCHC Cancelled, RDW Std Deviation Cancelled, RDW Coeff of Jason Cancelled, Plt Count Cancelled, MPV Cancelled, Immature Gran % (Auto) Cancelled, Neut % (Auto) Cancelled, Lymph % (Auto) Cancelled, Dane % (Auto) Cancelled, Eos % (Auto) Cancelled, Baso % (Auto) Cancelled, Absolute Neuts (auto) Cancelled, Absolute Lymphs (auto) Cancelled, Total Counted Cancelled, Neutrophils % (Manual) Cancelled, Band Neutrophils % Cancelled, Lymphocytes % (Manual) Cancelled, Monocytes % (Manual) Cancelled, Eosinophils % (Manual) Cancelled, Basophils % (Manual) Cancelled, Metamyelocytes % Cancelled, Myelocytes % Cancelled, Promyelocytes % Cancelled, Blast Cells % Cancelled, Plasma Cell % (Manual) Cancelled, Other Cells % Cancelled, Nucleated RBC % Cancelled, Nucleated RBCs/100 WBC Cancelled, Differential Comment Cancelled, Diff Path Review Cancelled, Hypersegmented Neuts Cancelled, Atypical Lymphocytes Cancelled, Reactive Lymphocytes Cancelled, Smudge Cells Cancelled, Toxic Granulation Cancelled, Toxic Vacuolation Cancelled, Dohle Bodies Cancelled, Dez Rods Cancelled, Platelet Estimate Cancelled, Plt Morphology Comment Cancelled, RBC Morphology Cancelled 01/29/24 14:05: RBC Morphology Cancelled, Polychromasia Cancelled, Hypochromasia Cancelled, Basophilic Stippling Cancelled, Anisocytosis Cancelled, Microcytosis Cancelled, Macrocytosis Cancelled, Spherocytes Cancelled, Sickle Cells Cancelled, Target Cells Cancelled, Tear Drop Cells Cancelled, Ovalocytes Cancelled, Stomatocytes Cancelled, [place] Bodies Cancelled, [place] Cells Cancelled, Bite Cells Cancelled, Crenated Cell Cancelled, Acanthocytes (Spur) Cancelled, Rouleaux Cancelled, Schistocytes Cancelled, PT Cancelled, INR Cancelled, Sodium 137, Potassium 4.2, Chloride 107, Carbon Dioxide 24.0, Anion Gap 6, BUN 10, Creatinine 0.82, Estim Creat Clear Calc 69.31, Est GFR (MDRD) Af Amer 87, Est GFR (MDRD) Non-Af 72, BUN/Creatinine Ratio 12.1, Glucose 137 H, Calcium 8.8, Magnesium 1.2 L, Total Bilirubin 1.00, AST 26, ALT 16, Alkaline Phosphatase 90, Troponin I High Sens 18, Total Protein 7.0, Albumin 3.3, Globulin 3.7, Albumin/Globulin Ratio 0.9 01/29/24 14:40: PT 14.8, INR 1.2 01/29/24 15:20: WBC 4.9, RBC 4.46, Hgb 14.2, Hct 44.2, MCV 99.1 H, MCH 31.8, MCHC 32.1, RDW Std Deviation 47.6 H, RDW Coeff of Jason 13.1, Plt Count 136 L, MPV 9.6, Immature Gran % (Auto) 0.600, Neut % (Auto) 69.8, Lymph % (Auto) 18.3 L, Dane % (Auto) 7.7, Eos % (Auto) 2.8, Baso % (Auto) 0.8, Absolute Neuts (auto) 3.4, Absolute Lymphs (auto) 0.90, Nucleated RBC % 0 01/29/24 21:18: POC Glucose 129 H 01/30/24 05:55: WBC 4.5, RBC 3.62 L, Hgb 12.0, Hct 35.8 L, MCV 98.9, MCH 33.1 H, MCHC 33.5, RDW Std Deviation 47.0 H, RDW Coeff of Jason 13.0, Plt Count 110 L, MPV 9.3, Immature Gran % (Auto) 0.400, Neut % (Auto) 60.0, Lymph % (Auto) 24.4, Dane % (Auto) 9.6, Eos % (Auto) 4.7, Baso % (Auto) 0.9, Absolute Neuts (auto) 2.7, Absolute Lymphs (auto) 1.09, Nucleated RBC % 0, Sodium 137, Potassium 3.9, Chloride 108 H, Carbon Dioxide 23.0, Anion Gap 6, BUN 9, Creatinine 0.72, Estim Creat Clear Calc 69.35, Est GFR (MDRD) Af Amer 101, Est GFR (MDRD) Non-Af 83, BUN/Creatinine Ratio 12.4, Glucose 124 H, Calcium 8.2 L, Magnesium 2.2 01/30/24 06:26: POC Glucose 127 H Micro: Microbiology 01/29/24 13:50 Mucosa - Nose SARS-CoV-2, Influenza & RSV (PCR) - Final Imaging Radiology Impression Abdomen/Pelvis CT 01/29/24 13:45 IMPRESSION: Bilateral hydronephrosis and hydroureter more prominent on the right side. A right-sided double-J stent catheter is seen with the proximal tip in the right renal pelvis and distal tip in the bladder. Mild degree of left hydronephrosis. Electronically Signed: Chance Pearl MD at 14:46 EDT , Chest X-Ray 01/29/24 13:45 IMPRESSION: Hyperinflation. The lungs are clear. Electronically Signed: Chance Pearl MD at 14:47 EDT , Brain CT 01/29/24 14:44 IMPRESSION: Chronic involutional changes of the brain. Electronically Signed: Chance Pearl MD at 15:05 EDT ,
--- NOTE | 2024-01-30 08:40 | CT_ITS ---
INDICATION: right hydro possible mass in ureter on right EXAMINATION: CT ABDOMEN AND PELVIS WITH CONTRAST - TECHNIQUE: Helically acquired images were obtained of the abdomen and pelvis following IV contrast. A radiation dose optimization technique was used for this scan. IV Contrast dosage and agent: 100 cc [id number] Oral contrast: None. COMPARISON: 01/29/2024 FINDINGS: LOWER CHEST: Lung bases are clear. LIVER: Homogeneous. No focal mass. GALLBLADDER AND BILIARY TREE: No calcified gallstones. No gallbladder distension or wall edema. No intra- or extrahepatic biliary ductal dilation. PANCREAS: No focal cystic or solid mass. SPLEEN: Normal size without focal cystic or solid mass. ADRENAL GLANDS: No nodules. KIDNEYS AND URETERS: Right ureteral stent in place with decreased but persistent right hydronephrosis. Stable prominent left extrarenal pelvis, no left hydroureter which opacifies on delayed images. PERITONEUM: No ascites or free air. BOWEL: No evidence of acute appendicitis. No stomach or bowel distension. Stable colonic diverticulosis without inflammatory bowel wall changes. LYMPH NODES: No enlarged mesenteric or retroperitoneal lymph nodes. VESSELS: Aorta is non-dilated. URINARY BLADDER: No gross mass. Bladder not significantly opacified. REPRODUCTIVE ORGANS: No pelvic masses. BONES: No interval change. CT/Abdomen/Pelvis W IV Cont ONLY IMPRESSION: Persistent but decreased right hydronephrosis with right ureteral stent in place. Bladder not opacified on delayed images to evaluate for intrinsic mass. Prominent left extrarenal pelvis without yael obstruction. Electronically Signed: Polo Freeman MD at 18:18 EDT ,
[2024-01-30 09:02] VITALS: BP 134/58; PULSE 62; RESP 18; TEMP 36.4; O2SAT 99
[2024-01-30] MEDS: Loratadine 10 MG Tablet PO (10:17)
[2024-01-30] MEDS: Gabapentin 300 MG Capsule PO (10:27)
[2024-01-30 11:48] LABS: Bedside Glucose 116 mg/dL (74-106)
--- NOTE | 2024-01-30 13:44 | CASEMGMT ---
Met with pt to complete DELATORRE form. DELATORRE form explained to pt at this time who voiced understanding and signed form. Original form placed in pt?s chart and copy provided to the pt. RN MAVERICK also discussed DC planning with pt. Pt states that she lives at home alone and that her daughter and GD live next door. PT is not recommending any additional therapy at this time. Pt denies the need for HHC or OP therapy. Pt wishes to return home with no additional needs and states feeling safe doing so.
--- NOTE | 2024-01-30 13:55 | DCINST_ITS ---
Discharge Instructions Diet Discharge Diet: No restrictions Activity Discharge Activity: No Restrictions Weight Bearing Status: Full weight bearing Follow Up Care Test Results: Test results from this visit will be discussed in further detail at your follow- up appointment, if applicable. Discharge Plan Admission Admit Date/Time: 01/29/24 16:34 Primary Reason for Your Visit: Dizziness/lightheadedness with weakness Attending Provider: Tonio Glass Primary Care Provider: Ro Reed Consulting Providers: Josesito Miller; Devyn Samaniego Instructions Additional Instructions / Restrictions: Please follow-up with Dr. Samaniego in the office in the next 1-2 weeks. Continue all other home medications as normal. Discharge Orders/Prescriptions Prescriptions: Continued oxycodone-acetaminophen 5-325 mg tablet 1 tab PO Q8H PRN (Reason: severe pain (scale score 7-10)) (DME) TENS unit electrodes Pad See Rx Instructions .ROUTE .MEDSUPPLY Qty: 2 Rx Instructions: As directed albuterol sulfate 90 mcg/actuation HFA aerosol inhaler 2 puff INHALATION Q4H PRN (Reason: shortness of breath or wheezing) Qty: 8.5 6RF Rx Instructions: administer with spacer warfarin 5 MG tablet 5 mg PO SUMOTUWESA Hold Instructions: Hold return resume when INR is 2.5. Follow-up with PCP Protocol: Dose Management Condition: Thursday Dose/Route: 5 mg Instruction: 1 x 5 mg tablet Condition: Thursday Dose/Route: 5 mg Instruction: 1 x 5 mg tablet Condition: Thursday Dose/Route: 5 mg Instruction: 1 x 5 mg tablet Condition: Thursday Dose/Route: 5 mg Instruction: 1 x 5 mg tablet Condition: Dose/Route: 2.5 mg Instruction: 1 x 2.5 mg tablet Condition: Thursday Dose/Route: 2.5 mg Instruction: 1 x 2.5 mg tablet Condition: Thursday Dose/Route: 5 mg Instruction: 1 x 5 mg tablet Protocol Text: Adjustment Start Date: Thursday01/04/24 INR Value: 2.1 INR Date: 01/04/24 Recheck Date: 01/11/24 atorvastatin 10 MG tablet 10 mg PO QHS gabapentin 300 mg capsule 600 mg PO QHS Patient Comments: Take 2 capsules by mouth daily at bedtime AND 1 capsule every morning. metformin 500 mg tablet extended release 24 hr 1,000 mg PO BID gabapentin 300 mg capsule 300 mg PO BREAKFAST Patient Comments: Take 2 capsules by mouth daily at bedtime AND 1 capsule every morning. Rx Instructions: 300 mg orally; warfarin [Octtoven] 2.5 mg tablet 2.5 mg PO THFR Hold Instructions: Hold it until INR drops less than 2.5. Resume when INR between 2-2.5.. Protocol: Dose Management Condition: Thursday Dose/Route: 5 mg Instruction: 1 x 5 mg tablet Condition: Thursday Dose/Route: 5 mg Instruction: 1 x 5 mg tablet Condition: Thursday Dose/Route: 5 mg Instruction: 1 x 5 mg tablet Condition: Thursday Dose/Route: 5 mg Instruction: 1 x 5 mg tablet Condition: Dose/Route: 2.5 mg Instruction: 1 x 2.5 mg tablet Condition: Thursday Dose/Route: 2.5 mg Instruction: 1 x 2.5 mg tablet Condition: Thursday Dose/Route: 5 mg Instruction: 1 x 5 mg tablet Protocol Text: Adjustment Start Date: Thursday01/04/24 INR Value: 2.1 INR Date: 01/04/24 Recheck Date: 01/11/24 cyclobenzaprine 10 mg tablet 10 mg PO TID PRN (Reason: muscle spasm) magnesium oxide 400 mg magnesium tablet 400 mg PO DAILY Symbicort 160-4.5 mcg/actuation HFA aerosol inhaler 2 puff INHALATION BID Qty: 10.2 11RF Referrals / Follow Up: Ro Reed MD [Primary Care Provider] - Disposition Disposition (needs filled in before D/C Order can be placed): Home, Self Care
--- NOTE | 2024-01-30 14:00 | DS.PCM_ITS ---
Providers Date of Admission: 01/29/24 Date of Discharge: 01/30/24 Primary Care Physician: Dr. Ro Reed MD Consultations 01/30/24 07:39 Consult: Urology Routine Consulting Provider: Devyn Samaniego Reason for Consult: known to you, persistent b/l hydronephrosis EMERGENT Consult: No MD Notified: Yes Date Notified: 01/30/24 Time Notified: 08:35 Method of Notification: Verbal Reason For Visit: DIZZINESS, RESTRICTED TO ADL Diagnosis Discharge Diagnosis (1) Lightheadedness: Status: Acute Code(s): R42 - Dizziness and giddiness Medications at Discharge Home Medications warfarin 5 mg tablet 5 mg PO SUMOTUWESA blood thinner 11/18/18 atorvastatin 10 mg tablet 10 mg PO QHS cholesterol 12/11/19 TENS unit electrodes #2 ea 07/11/20 oxycodone-acetaminophen 5 mg-325 mg tablet 1 tab PO Q8H PRN severe pain (scale score 7-10) 12/07/20 metformin 500 mg tablet,extended release 24 hr 1,000 mg PO BID DM 06/17/22 gabapentin 300 mg capsule 300 mg PO BREAKFAST nerve pain 08/04/22 gabapentin 300 mg capsule 600 mg PO QHS Neuropathy 08/04/22 albuterol sulfate 90 mcg/actuation aerosol inhaler 2 puff inhalation Q4H PRN shortness of breath or wheezing #8.5 grams 11/26/23 warfarin 2.5 mg tablet (Jantoven) 2.5 mg PO THFR blood thinner 12/30/23 budesonide-formoterol HFA 160 mcg-4.5 mcg/actuation aerosol inhaler (Symbicort) 2 puff inhalation BID asthma #10.2 grams 01/20/24 cyclobenzaprine 10 mg tablet 10 mg PO TID PRN muscle spasm 01/22/24 magnesium oxide 400 mg PO DAILY SUPPLEMENT 01/29/24 Hospital Course Operations None Procedures - (CT abdomen pelvis without contrast, CT Abdo pelvis with IV contrast, chest x- ray, CT brain without contrast) Summary of Care Provided Minutes Spent on Discharge: 35 Hospital Course: Patient is a 78-year-old female who presented to [facility] ED on 01/29/2024 with dizziness/lightheadedness and worsening weakness at home. Short hospital course as noted below. Discharged home in stable condition on 01/29. 1. Dizziness/lightheadedness and worsening weakness, improved Lives at home alone, had lightheadedness and dizziness with standing with reported syncopal episode on day prior to admission. Was seen at [place] [facility], pacemaker interrogation was normal, vitals and labs normal UA normal, was discharged home. However patient continued to have symptoms and daughter was concerned because patient lives alone so they brought her to our ED for further evaluation. Workup in our ED was also fairly benign. Chest x-ray nonacute. CT brain without contrast nonacute. CT Abdo pelvis without contrast with known b ilateral hydronephrosis noted, no other new findings. Orthostatic vitals negative. COVID/flu/RSV negative. Labs benign. ? Patient reported significant improvement symptomatically with IV fluid resu scitation on admission. PT/OT/case management followed. Patient did very well with therapy on 01/29, recommendation was for home without any therapy needs. Discharged home with no therapy needs in stable condition on 01/29. 2. Chronic right-sided hydronephrosis with recent ureteral stent placement ? Dr. Samaniego with Urology followed. Patient had cystoscopy with right ureteral stent placement on 01/21, tolerated procedure well. Noted to have continued right hydronephrosis on CT abdomen pelvis without contrast on 01/28. Dr. Samaniego ordered CT abdomen pelvis with IV contrast on 01/29, scan completed but read pending on discharge. Patient had good urine output while inpatient. Spoke with Dr. Samaniego over the phone on 01/29 and he noted that patient was stable for discharge, would follow-up in the outpatient setting in the next week or so. Chronic medical conditions: ? 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 ? Hyperlipidemia: Continue home statin. ? Paroxysmal A-fib/flutter with subtherapeutic INR: INR 1.2 on admit. Continued home warfarin. Recommended outpatient follow-up with pharmacy for recommendations on dosing to return to therapeutic INR. ? History of complete heart block s/p pacemaker placement ? Chronic asthma with allergic rhinitis: Continued home inhalers. ? RAMESH: Continue CPAP. Total clinical time spent by myself addressing the patient's medical issues, reviewing all the data, and collaborating with patient's care team: 35 minutes. Physical Exam Const alert, oriented x3 and no apparent distress Constitutional Narrative: Pleasant elderly female, overweight, sitting up comfortably bedside chair, conversing normally, no acute distress. General Appearance: cooperative and comfortable HEENT normocephalic, head/scalp atraumatic, hearing grossly normal bilaterally, nasal mucous membranes and turbinates normal and moist oral mucous membranes Eyes PERRL, EOMs intact bilaterally and conjunctivae normal Neck full ROM Chest inspection of chest normal Resp normal respiratory effort, normal air movement, no use of accessory muscles and clear to auscultation bilaterally Cardio regular rate, regular rhythm, no murmurs and peripheral pulses 2+ throughout GI normal to inspection, nondistended, normoactive bowel sounds, soft to palpation, non-tender and non-distended Back/Spine normal ROM Extremity normal to inspection, full ROM and no pedal edema Skin no rashes or lesions noted Neuro moves all extremities and no focal motor deficits Speech: speech normal Psych mental status grossly normal Weight / BMI Weight Weight: 87.725 kg Body Mass Index (BMI) 29.4 ABG / Lab / Microbiology Data 01/30/24 05:55 01/30/24 05:55 Laboratory: Laboratory Results - last 24 hr 01/29/24 13:50: Urine Color Yellow, Urine Clarity Clear, Urine pH 7.0, Ur Specific [place] 1.005, Urine Protein 30 H, Urine Glucose (UA) Normal, Urine Ketones Negative, Urine Occult Blood 10 H, Urine Nitrite Negative, Urine Bilirubin Negative, Urine Urobilinogen Normal, Ur Leukocyte Esterase 25 H, Urine RBC 0-5 SEEN, Urine WBC 0-5 SEEN, Ur Squamous Epith Cells 0-5 SEEN, Urine Bacteria 0 SEEN, Urine Mucus 0 SEEN 01/29/24 14:05: WBC Cancelled, Corrected WBC Cancelled, RBC Cancelled, Hgb Cancelled, Hct Cancelled, MCV Cancelled, MCH Cancelled, MCHC Cancelled, RDW Std Deviation Cancelled, RDW Coeff of Jason Cancelled, Plt Count Cancelled, MPV Cancelled, Immature Gran % (Auto) Cancelled, Neut % (Auto) Cancelled, Lymph % (Auto) Cancelled, [place] % (Auto) Cancelled, Eos % (Auto) Cancelled, Baso % (Auto) Cancelled, Absolute Neuts (auto) Cancelled, Absolute Lymphs (auto) Cancelled, Total Counted Cancelled, Neutrophils % (Manual) Cancelled, Band Neutrophils % Cancelled, Lymphocytes % (Manual) Cancelled, Monocytes % (Manual) Cancelled, Eosinophils % (Manual) Cancelled, Basophils % (Manual) Cancelled, Metamyelocytes % Cancelled, Myelocytes % Cancelled, Promyelocytes % Cancelled, Blast Cells % Cancelled, Plasma Cell % (Manual) Cancelled, Other Cells % Cancelled, Nucleated RBC % Cancelled, Nucleated RBCs/100 WBC Cancelled, Differential Comment Cancelled, Diff Path Review Cancelled, Hypersegmented Neuts Cancelled, Atypical Lymphocytes Cancelled, Reactive Lymphocytes Cancelled, Smudge Cells Cancelled, Toxic Granulation Cancelled, Toxic Vacuolation Cancelled, Dohle Bodies Cancelled, Dez Rods Cancelled, Platelet Estimate Cancelled, Plt Morphology Comment Cancelled, RBC Morphology Cancelled 01/29/24 14:05: RBC Morphology Cancelled, Polychromasia Cancelled, Hypochromasia Cancelled, Basophilic Stippling Cancelled, Anisocytosis Cancelled, Microcytosis Cancelled, Macrocytosis Cancelled, Spherocytes Cancelled, Sickle Cells Cancelled, Target Cells Cancelled, Tear Drop Cells Cancelled, Ovalocytes Cancell ed, Stomatocytes Cancelled, [place] Bodies Cancelled, [place] Cells Cancelled, Bite Cells Cancelled, Crenated Cell Cancelled, Acanthocytes (Spur) Cancelled, Rouleaux Cancelled, Schistocytes Cancelled, PT Cancelled, INR Cancelled, Sodium 137, Potassium 4.2, Chloride 107, Carbon Dioxide 24.0, Anion Gap 6, BUN 10, Creatinine 0.82, Estim Creat Clear Calc 69.31, Est GFR (MDRD) Af Amer 87, Est GFR (MDRD) Non-Af 72, BUN/Creatinine Ratio 12.1, Glucose 137 H, Calcium 8.8, Magnesium 1.2 L, Total Bilirubin 1.00, AST 26, ALT 16, Alkaline Phosphatase 90, Troponin I High Sens 18, Total Protein 7.0, Albumin 3.3, Globulin 3.7, Albumin/Globulin Ratio 0.9 01/29/24 14:40: PT 14.8, INR 1.2 01/29/24 15:20: WBC 4.9, RBC 4.46, Hgb 14.2, Hct 44.2, MCV 99.1 H, MCH 31.8, MCHC 32.1, RDW Std Deviation 47.6 H, RDW Coeff of Jason 13.1, Plt Count 136 L, MPV 9.6, Immature Gran % (Auto) 0.600, Neut % (Auto) 69.8, Lymph % (Auto) 18.3 L, [place] % (Auto) 7.7, Eos % (Auto) 2.8, Baso % (Auto) 0.8, Absolute Neuts (auto) 3.4, Absolute Lymphs (auto) 0.90, Nucleated RBC % 0 01/29/24 21:18: POC Glucose 129 H 01/30/24 05:55: WBC 4.5, RBC 3.62 L, Hgb 12.0, Hct 35.8 L, MCV 98.9, MCH 33.1 H, MCHC 33.5, RDW Std Deviation 47.0 H, RDW Coeff of Jason 13.0, Plt Count 110 L, MPV 9.3, Immature Gran % (Auto) 0.400, Neut % (Auto) 60.0, Lymph % (Auto) 24.4, [place] % (Auto) 9.6, Eos % (Auto) 4.7, Baso % (Auto) 0.9, Absolute Neuts (auto) 2.7, Absolute Lymphs (auto) 1.09, Nucleated RBC % 0, Sodium 137, Potassium 3.9, Chloride 108 H, Carbon Dioxide 23.0, Anion Gap 6, BUN 9, Creatinine 0.72, Estim Creat Clear Calc 69.35, Est GFR (MDRD) Af Amer 101, Est GFR (MDRD) Non-Af 83, BUN/Creatinine Ratio 12.4, Glucose 124 H, Calcium 8.2 L, Magnesium 2.2 01/30/24 06:26: POC Glucose 127 H 01/30/24 11:31: POC Glucose 116 H Microbiology: Microbiology 01/29/24 13:50 Mucosa - Nose SARS-CoV-2, Influenza & RSV (PCR) - Final Radiography Diagnostic Testing: Radiology Impression Abdomen/Pelvis CT 01/29/24 13:45 IMPRESSION: Bilateral hydronephrosis and hydroureter more prominent on the right side. A right-sided double-J stent catheter is seen with the proximal tip in the right renal pelvis and distal tip in the bladder. Mild degree of left hydronephrosis. Electronically Signed: Chance Pearl MD at 14:46 EDT , Chest X-Ray 01/29/24 13:45 IMPRESSION: Hyperinflation. The lungs are clear. Electronically Signed: Chance Pearl MD at 14:47 EDT , Brain CT 01/29/24 14:44 IMPRESSION: Chronic involutional changes of the brain. Electronically Signed: Chance Pearl MD at 15:05 EDT , D/C Instructions Discharge Diet: No restrictions Weight Bearing Status: Full weight bearing Meaningful Use Info Meaningful Use Diagnoses (Choose all that apply): None applicable Discharge Plan Admission Admit Date/Time: 01/29/24 16:34 Primary Reason for Your Visit: Dizziness/lightheadedness with weakness Attending Provider: Tonio Glass Primary Care Provider: Ro Reed Consulting Providers: Josesito Miller; Devyn Samaniego Instructions Additional Instructions / Restrictions: Please follow-up with Dr. Samaniego in the office in the next 1-2 weeks. Continue all other home medications as normal. Discharge Orders/Prescriptions Prescriptions: Continued oxycodone-acetaminophen 5-325 mg tablet 1 tab PO Q8H PRN (Reason: severe pain (scale score 7-10)) (DME) TENS unit electrodes Pad See Rx Instructions .ROUTE .MEDSUPPLY Qty: 2 Rx Instructions: As directed albuterol sulfate 90 mcg/actuation HFA aerosol inhaler 2 puff INHALATION Q4H PRN (Reason: shortness of breath or wheezing) Qty: 8.5 6RF Rx Instructions: administer with spacer warfarin 5 MG tablet 5 mg PO SUMOTUWESA Hold Instructions: Hold return resume when INR is 2.5. Follow-up with PCP Protocol: Dose Management Condition: Thursday Dose/Route: 5 mg Instruction: 1 x 5 mg tablet Condition: Thursday Dose/Route: 5 mg Instruction: 1 x 5 mg tablet Condition: Thursday Dose/Route: 5 mg Instruction: 1 x 5 mg tablet Condition: Thursday Dose/Route: 5 mg Instruction: 1 x 5 mg tablet Condition: Dose/Route: 2.5 mg Instruction: 1 x 2.5 mg tablet Condition: Thursday Dose/Route: 2.5 mg Instruction: 1 x 2.5 mg tablet Condition: Thursday Dose/Route: 5 mg Instruction: 1 x 5 mg tablet Protocol Text: Adjustment Start Date: Thursday01/04/24 INR Value: 2.1 INR Date: 01/04/24 Recheck Date: 01/11/24 atorvastatin 10 MG tablet 10 mg PO QHS gabapentin 300 mg capsule 600 mg PO QHS Patient Comments: Take 2 capsules by mouth daily at bedtime AND 1 capsule every morning. metformin 500 mg tablet extended release 24 hr 1,000 mg PO BID gabapentin 300 mg capsule 300 mg PO BREAKFAST Patient Comments: Take 2 capsules by mouth daily at bedtime AND 1 capsule every morning. Rx Instructions: 300 mg orally; warfarin [Jantoven] 2.5 mg tablet 2.5 mg PO THFR Hold Instructions: Hold it until INR drops less than 2.5. Resume when INR between 2-2.5.. Protocol: Dose Management Condition: Thursday Dose/Route: 5 mg Instruction: 1 x 5 mg tablet Condition: Thursday Dose/Route: 5 mg Instruction: 1 x 5 mg tablet Condition: Thursday Dose/Route: 5 mg Instruction: 1 x 5 mg tablet Condition: Thursday Dose/Route: 5 mg Instruction: 1 x 5 mg tablet Condition: Dose/Route: 2.5 mg Instruction: 1 x 2.5 mg tablet Condition: Thursday Dose/Route: 2.5 mg Instruction: 1 x 2.5 mg tablet Condition: Thursday Dose/Route: 5 mg Instruction: 1 x 5 mg tablet Protocol Text: Adjustment Start Date: Thursday01/04/24 INR Value: 2.1 INR Date: 01/04/24 Recheck Date: 01/11/24 cyclobenzaprine 10 mg tablet 10 mg PO TID PRN (Reason: muscle spasm) magnesium oxide 400 mg magnesium tablet 400 mg PO DAILY Symbicort 160-4.5 mcg/actuation HFA aerosol inhaler 2 puff INHALATION BID Qty: 10.2 11RF Referrals / Follow Up: Ro Reed MD [Primary Care Provider] - Disposition Disposition (needs filled in before D/C Order can be placed): Home, Self Care Charges/Coding Visit Charges Inpatient E&M: 38714 Disch Hosp >30min
[2024-01-30 15:02] VITALS: BP 134/74; PULSE 66; RESP 16; TEMP 37.1; O2SAT 100
[2024-01-30 16:02] LABS: Bedside Glucose 126 mg/dL (74-106)
== END 2024-01-30 13:59 | disposition home or self-care (01) ==
LOC: ED 16:37 → PCU 17:12
PROVIDERS: Physician Assistant; Admitting Provider Internal Medicine; Emergency Provider Emergency Medicine; PCP Internal Medicine; Visit Provider Hospitalist
DX: R42 Dizziness and giddiness (principal); I27.20 Pulmonary hypertension, unspecified; I48.0 Paroxysmal atrial fibrillation; E11.40 Type 2 diabetes mellitus with diabetic neuropathy, unspecified; N13.30 Unspecified hydronephrosis; Z79.01 Long term (current) use of anticoagulants; Z79.51 Long term (current) use of inhaled steroids; I10 Essential (primary) hypertension; E66.9 Obesity, unspecified; I87.2 Venous insufficiency (chronic) (peripheral); Z79.84 Long term (current) use of oral hypoglycemic drugs; J45.909 Unspecified asthma, uncomplicated; J06.9 Acute upper respiratory infection, unspecified; R53.1 Weakness; G47.33 Obstructive sleep apnea (adult) (pediatric); E78.5 Hyperlipidemia, unspecified; Z68.30 Body mass index [BMI] 30.0-30.9, adult; Z79.899 Other long term (current) drug therapy
CPT/HCPCS: 36415; 70450; 71046; 74176; 74177; 80048; 80053; 81001; 82962; 83735; 84484; 85025; 85610; 87631; 93005; 94668; 96360; 96361; 96372; 97161; 97165; 97802; 99221; 99285; J7030; P9612; Q9967; A4216; G0378

== ENCOUNTER 2024-04-13 10:14 | Outpatient (RCR) | payer MEDICARE, SELFPAY ==
[2024-01-23 22:33] VITALS: BMI 29.2
[2024-04-13 11:03] LABS: International Normalized Ratio 3.6
== END 2024-04-13 18:00 | disposition home or self-care (01) ==
LOC: LAB 10:14
PROVIDERS: Family Provider Internal Medicine; PCP Internal Medicine; Referring Provider Physician Assistant Medical; Visit Provider Physician Assistant Medical
DX: I48.92 Unspecified atrial flutter; Z79.01 Long term (current) use of anticoagulants; I48.91 Unspecified atrial fibrillation
CPT/HCPCS: 36415; 85610

== ENCOUNTER 2024-05-04 14:33 | Emergency (ER) | payer MEDICARE, SELFPAY ==
[2024-05-04 14:34] VITALS: BP 183/75; PULSE 99; RESP 24; TEMP 36.4; O2SAT 97; BMI 27.3
--- NOTE | 2024-05-04 15:15 | CT_ITS ---
STUDY: CT CERVICAL SPINE WITHOUT CONTRAST REASON FOR EXAM: Female, 79 years old. trauma RADIATION DOSAGE (If Supplied By Facility): CTDIvol = ( 27.33 ) mGy, DLP = ( 551.07 ) mGycm TECHNIQUE: High resolution transaxial imaging was performed without contrast material. Sagittal and coronal images were reconstructed. Individualized dose optimization techniques were used for this CT. COMPARISON: None FINDINGS: Normal craniovertebral junction. Normal anterior atlantoaxial articulation. Normal odontoid process. There is dense mildly calcified pannus deposition overlying the posterior dens mildly narrowing the spinal canal. There is straightening of the lordotic curvature which may be due to muscle spasm or positioning artifact. Normal vertebral bodies and posterior osseous elements. C2-3: Normal endplates. Normal disc height and mild bulging disc osteophyte complex. Narrowed disc space with mild cord compression. Moderate bilateral neural foraminal stenosis C3-4: Normal endplates. Normal disc height and morphology. Normal central canal and severe right neural foraminal stenosis secondary to bony hypertrophy C4-5: Normal endplates. Normal disc height and prominent broad-based central disc protrusion narrowing the spinal canal and mildly compressing the cord. Severe right neural foraminal stenosis secondary to bony hypertrophy. C5-6: Narrowed disc space and mild bulging of the disc.. Mild narrowing of central canal. Severe left neural foraminal stenosis and moderate narrowing on the right secondary to bony hypertrophy C6-7: Narrowed disc space and mild bulging of the disc. Mild narrowing of the central canal. Severe bilateral neural foraminal stenosis secondary to bony hypertrophy C7-T1: Normal endplates. Normal disc height and morphology. Normal central canal and intervertebral neuroforamina. Normal visualized soft tissue structures. CT/Spine Cervical without Contras IMPRESSION: No evidence for acute fracture or subluxation. Advanced spondylosis and multilevel spinal stenosis secondary to disc disease and bony hypertrophy Electronically Signed: Souleymane Mclaughlin MD at 16:36 EDT Reading Location ID and State: [facility] / [place] Tel , Service support ,
--- NOTE | 2024-05-04 15:15 | CT_ITS ---
INDICATION: right lateral posterior chest wall EXAMINATION: CT CHEST WITHOUT CONTRAST - CT Chest W/O Contrast Injection TECHNIQUE: Helically acquired images were obtained of the chest. A radiation dose optimization technique was used for this scan. IV Contrast dosage and agent: None. COMPARISON: None. FINDINGS: LUNGS, PLEURA AND LARGE AIRWAYS: Mild nonspecific interstitial prominence. No masses, consolidation, or edema. No pleural effusion or thickening. No pneumothorax. THYROID: No thyroid lesions. HEART AND PERICARDIUM: Heart size is mildly enlarged. No pericardial effusion. CORONARY ARTERIES: Mild coronary artery calcification VESSELS: Atherosclerotic changes of the aorta without evidence for aneurysm MEDIASTINUM AND TRE: No mediastinal or hilar adenopathy. Esophagus is unremarkable. No hiatal hernia. UPPER ABDOMEN: Cirrhotic appearance to the visualized portions of the liver. BONES: Dorsal spine demonstrates degenerative changes. No evidence for acute fracture No suspicious lytic or blastic abnormality. CT/Chest without Contrast IMPRESSION: ASHD. No acute cardiopulmonary pathology No evidence for acute rib fracture Electronically Signed: Souleymane Mclaughlin MD at 16:40 EDT Reading Location ID and State: [facility] / [place] Tel , Service support ,
--- NOTE | 2024-05-04 15:15 | CT_ITS ---
STUDY: CT LUMBAR SPINE WITHOUT CONTRAST REASON FOR EXAM: Female, 79 years old. trauma RADIATION DOSAGE (If Supplied By Facility): CTDIvol = ( 44.68 ) mGy, DLP = ( 1722.80 ) mGycm TECHNIQUE: The patient was scanned in a multi detector CT scanner. High resolution transaxial imaging was performed. Images were obtained from to . Sagittal and coronal images were reconstructed. Individualized dose optimization techniques were used for this CT. COMPARISON: None FINDINGS: Normal lumbar lordosis. There is no substantial scoliosis. Normal vertebrae of the lumbar spine. L1-2: Normal endplates. Normal disc height and morphology. Normal bilateral facet joints. Normal central canal and bilateral lateral recesses. Normal bilateral intervertebral neural foramina. L2-3: Normal endplates. Normal disc height and morphology. Mild facet arthropathy.. Normal central canal and bilateral lateral recesses. Normal bilateral intervertebral neural foramina. L3-4: Normal endplates. Normal disc height and minor annular bulge.. Facet arthropathy and thickening of ligamenta flava.. Moderate central canal bilateral lateral recess stenosis. Severe bilateral neural foraminal stenosis exaggerated by shortened pedicles L4-5: Normal endplates. Normal disc height and minor annular bulge.. Facet arthropathy.. Moderate central canal and bilateral lateral recess stenosis with moderate to severe neural foraminal stenosis exaggerated by shortened pedicles L5-S1: Normal endplates. Normal disc height and mild annular bulge with right posterolateral/foraminal disc protrusion. Facet arthropathy more pronounced on the right.. Mild narrowing of the central canal. Mild narrowing of the left lateral recess and moderate left neural foraminal stenosis with more severe narrowing of the right lateral recess and nerve root foramen. Normal visualized paraspinous soft tissue structures. CT/Spine Lumbar without Contrast IMPRESSION: No evidence for acute fracture or subluxation.. Multilevel spinal stenosis secondary to disc disease and bony hypertrophy most severe on the right at L5-S1. This may be further assessed with MRI if clinically warranted Electronically Signed: Souleymane Mclaughlin MD at 16:47 EDT ,
--- NOTE | 2024-05-04 15:15 | CT_ITS ---
STUDY: CT BRAIN WITHOUT CONTRAST REASON FOR EXAM: Female, 79 years old. trauma RADIATION DOSAGE (If Supplied By Facility): CTDIvol = ( 44.99 ) mGy, DLP = ( 779.24 ) mGycm TECHNIQUE: Transaxial CT imaging of the brain was performed without administration of intravenous contrast material. Individualized dose optimization techniques were used for this CT. COMPARISON: No relevant priors. FINDINGS: Soft tissue swelling of the scalp posterior to the parietal bones without associated skull fracture. . Calcific plaquing of the cavernous carotids Mild cortical atrophy and periventricular white matter ischemic changes.. Normal basal ganglia and thalami. Normal brainstem. Mild cerebellar atrophy. Possible old infarct in the right cerebellar hemisphere There is no intracranial hemorrhage. There are no findings of an acute ischemic infarction. Normal visualized paranasal sinuses. Postsurgical changes of the orbits CT/Brain/Head without Contrast IMPRESSION: Mild soft tissue swelling of the scalp posterior to the parietal lobes without associated skull fracture or acute intracranial bleed Mild atrophy and periventricular white matter ischemic changes.. Electronically Signed: Souleymane Mclaughlin MD at 16:30 EDT ,
--- NOTE | 2024-05-04 15:19 | ED.VIS.FALL ---
HPI HPI - Fall History of Present Illness Chief Complaint: Fall Informant: patient, family and EMS Narrative Narrative: 79-year-old female on Coumadin presenting to the emergency room with head injury and back pain following a fall. Patient was on a gravel driveway when she stepped into a depression causing her to fall backwards. No reported loss of consciousness. She notes pain in the mid back extending over into the posterior right chest wall. She notes headache and bleeding from her occiput region. Patient denies any leg or arm symptoms. [facility] Medical History Wears glasses Wears dentures Post-menopausal Sore on leg Arthritis Dietary restriction CPAP (continuous positive airway pressure) dependence Non-smoker Shortness of breath on exertion Cardiology follow-up encounter History of stress test History of echocardiogram Ureteral mass Hydronephrosis, right Fracture of left elbow History of complete heart block Cervical strain, acute COVID-19 Essential hypertension Hyperlipidemia RAMESH (obstructive sleep apnea) Asthma DDD (degenerative disc disease) Shoulder dislocation Contact dermatitis and other eczema Allergic rhinitis 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 Obesity Diabetes mellitus Hypersomnia Other secondary pulmonary hypertension BMI 33.0-33.9,adult Hx of bladder infections 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 Atrial fibrillation Home Medications ?Medication ?Instructions ?Recorded ?Last Taken ?Type warfarin 5 mg tablet 5 mg PO SUMOTUWESA blood thinner 11/18/18 05/04/24 History atorvastatin 10 mg tablet 10 mg PO QHS cholesterol 12/11/19 05/03/24 History gabapentin 300 mg capsule 300 mg PO BREAKFAST nerve pain 08/04/22 05/04/24 History gabapentin 300 mg capsule 600 mg PO QHS Neuropathy 08/04/22 05/03/24 History warfarin 2.5 mg tablet (Jantoven) 2.5 mg PO THFR blood thinner 12/30/23 01/16/24 History budesonide-formoterol HFA 160 2 puff inhalation BID asthma #10.2 01/20/24 05/04/24 Rx mcg-4.5 mcg/actuation aerosol grams inhaler (Symbicort) albuterol sulfate 90 mcg/actuation 2 puff inhalation Q4H PRN 03/04/24 Unknown Rx aerosol inhaler shortness of breath or wheezing #8.5 grams montelukast 10 mg tablet 10 mg PO QPM #30 tabs 03/04/24 05/04/24 Rx cholecalciferol (vitamin D3) 50 50 mcg PO DAILY 04/13/24 05/04/24 History mcg (2,000 unit) capsule glimepiride 2 mg tablet 2 mg PO DAILY 04/13/24 05/04/24 History magnesium oxide 250 mg PO DAILY SUPPLEMENT 04/13/24 05/04/24 History mecobalamin (vitamin B12) 1,000 1,000 mcg PO DAILY 04/13/24 05/04/24 History mcg chewable tablet metformin 500 mg tablet,extended 500 mg PO BID DM 04/13/24 05/04/24 History release 24 hr oxybutynin chloride 10 mg 10 mg PO DAILY 04/13/24 Unknown History tablet,extended release 24 hr Allergy/AdvReac Type Severity Reaction Status Date / Time amoxicillin Allergy Severe Hives Verified 05/04/24 20:56 aspirin Allergy Severe Hives, SOB Verified 05/04/24 20:56 Sulfa (Sulfonamide Allergy Severe Hives Verified 05/04/24 20:56 Antibiotics) Family History Mother Diabetes Father CAD (coronary artery disease) Sister Lung cancer Son Kidney stone Surgical History History of cystoscopy Hx of right cataract extraction Hx of left cataract extraction Presence of permanent cardiac pacemaker (04/01/19) History of kidney surgery History of appendectomy Social History household members: none housing: house number of children: 3 current occupational status: retired Smoking Status: Never smoker alcohol intake: never substance use type: does not use what type of physical activity do you participate in: none do you feel safe at home: Yes ROS ROS ED Constitutional Constitutional ED: Denies chills or weight loss Eyes Eyes: Denies change in vision or diplopia ENT ENT ED: Denies ear pain, rhinorrhea or sore throat Cardiovascular Cardiovascular: Reports chest pain; Denies orthopnea, palpitations or racing heartbeat Respiratory/Chest Respiratory/Chest: Denies cough, dyspnea or orthopnea Gastrointestinal Gastrointestinal: Denies abdominal pain, diarrhea, nausea or vomiting Genitourinary Genitourinary ED: Denies dysuria, hematuria or urinary frequency Musculoskeletal Musculoskeletal: Reports back pain and neck pain; Denies arthralgias or myalgias Integumentary Denies abscess or rash Neurologic Neurologic: Reports headache(s); Denies weakness Psychiatric Psychiatric: Denies anxiety, depression, suicidal ideation or suicidal thoughts Endocrine Endocrinology: Denies polydipsia, polyphagia or polyuria Allergic/Immunologic Allergic/Immunologic ED: Denies mouth swelling, tongue swelling or urticaria EXAM Physical Exam Const Vital Signs: 05/04/24 14:34 05/04/24 14:40 05/04/24 15:33 Temperature 97.5 F L Temperature Source Temporal Pulse Rate 99 81 Respiratory Rate 24 H 17 Respiratory Effort Normal Blood Pressure 183/75 H 182/82 H Blood Pressure Mean 111 115 Pulse Ox 97 98 Oxygen Delivery Method Room Air Room Air 05/04/24 16:00 05/04/24 17:00 05/04/24 17:42 Temperature 97.8 F Temperature Source Pulse Rate 61 63 71 Respiratory Rate 21 H 21 H 18 Respiratory Effort Blood Pressure 156/86 H 149/72 H 138/77 H Blood Pressure Mean 109 97 97 Pulse Ox 94 92 98 Oxygen Delivery Method Room Air Room Air Positive well nourished and well developed; Negative for obese General Appearance ED: well developed Nutritional Appearance: Negative for obese HEENT Reports normocephalic, head/scalp atraumatic and moist mucous membranes Eyes PERRL and EOMs intact bilaterally Neck full ROM, no lymphadenopathy, supple and no JVD Neck Narrative: Mild tenderness to palpation in the paraspinal musculature. Chest Wall Chest Narrative: Tender palpation of the left anterior chest around the pacemaker site. Resp normal respiratory effort and clear to auscultation bilaterally Cardio regular rate, regular rhythm and no murmurs GI normal to inspection, nondistended, normoactive bowel sounds and non-tender Palpation: soft Back/Spine no CVA tenderness Back/Spine Narrative: Patient with painful range of motion. She notes pain in the mid thoracic midline as well as the right lateral chest posteriorly. Extremity normal to inspection General Extremety ED: Negative for edema General Extremity: Negative for edema Neuro oriented x3 and CN's II-XII intact bilaterally [place] Coma Scale: document GCS findings Spontaneous Obeys Commands Oriented 15 Sensorium / Orientation: alert Motor Exam: strength 5/5 throughout Psych mental status grossly normal Mood & Affect: Negative for depressed or tearful Skin no rashes or lesions noted Skin Narrative: There are 2 areas of contusion and abrasion in the high occiput of the scalp. The right area shows about 1/4 cm linear laceration that is well-approximated with no active bleeding. There is fresh clot on the area. MDM MDM MDM Narrative Medical decision making narrative: Differential diagnosis includes but not limited to UTI, skull fracture intracranial hemorrhage spine fracture rib fracture pneumothorax pulmonary contusion pleural effusion/hemothorax, rib contusion lumbar thoracic and cervical myofascial strain White count 9.2 with a hemoglobin of 15.1. INR is slightly subtherapeutic at 1.9. Normal creatinine glucose 168. Urinalysis the initial 1 was significantly contaminated was most likely representing infection. Because I wish to do a urine culture I asked for a improved specimen which demonstrates greater than 100 white cells 50-100 red cells 3+ bacteria and 0-5 squamous cells. Negative nitrates positive leukocyte esterase. This will be sent for culture and the patient was placed on Keflex. CT of the brain cervical spine lumbar spine and CT chest does not demonstrate any obvious fracture or intracranial hemorrhage. No obvious pneumothorax or hemothorax. I do not see an obvious rib fracture. Patient received pain medication here in the department. I will write the patient to have pain medication and she was advised that it may cause drowsiness constipation amongst other side effects. Patient INR 1.9 family states that will discuss with their prescribing doctor however she has been put on antibiotics so I do not feel strongly that she would need to increase her dosing tonight. Patient is advised that she is certainly at risk for pneumonia. We have talked about the possible development of a compression fracture on imaging that were not seen today and missed rib fracture. They note understanding the plan will continue to monitor and follow-up. Addendum: Patient returned short time later via EMS. EMS states that family notes that she seems more confused. To me she remains alert and orientated. She can tell me the year where she is that and her name. She tells me that she does not feel confused. She continues to have pain. It was reported by EMS that nobody is able to stay with the patient. I repeated a single view chest x-ray. My independent interpretation of the single view chest x-ray is no acute process. Specifically looking for the development of effusion pneumothorax or contusion. Patient stated she had not yet received any medication at home so I administered Rocephin IV. She also received oral pain medication. I spoke with the hospitalist regarding admission. History & Record Review Discussion w/independent historian: Patient and Family Additional record(s) reviewed:: Prior labs Lab Data Attestation: I reviewed the patient's lab results. Labs: Laboratory Results - last 24 hr 05/04/24 05/04/24 05/04/24 14:52 15:35 16:23 WBC 9.2 RBC 4.74 Hgb 15.1 H Hct 44.2 MCV 93.2 MCH 31.9 MCHC 34.2 RDW Std Deviation 42.7 RDW Coeff of Jason 12.4 Plt Count 128 L MPV 9.6 Immature Gran % (Auto) 0.500 Neut % (Auto) 82.3 H Lymph % (Auto) 8.6 L Heard % (Auto) 8.0 Eos % (Auto) 0.1 Baso % (Auto) 0.5 Absolute Neuts (auto) 7.5 Absolute Lymphs (auto) 0.79 L Nucleated RBC % 0 PT 22.0 H INR 1.9 Sodium 135 L Potassium 3.6 Chloride 100 Carbon Dioxide 27.0 Anion Gap 8 BUN 12 Creatinine 1.00 Estim Creat Clear Calc 52.81 Est GFR (MDRD) Af Amer 69 Est GFR (MDRD) Non-Af 57 L BUN/Creatinine Ratio 12.0 Glucose 168 H Calcium 9.7 Urine Color Yellow Yellow Urine Clarity Turbid Turbid Urine pH 7.0 7.0 Ur Specific [place] 1.010 1.005 Urine Protein 100 H 100 H Urine Glucose (UA) Normal Normal Urine Ketones Negative Negative Urine Occult Blood 250 H 250 H Urine Nitrite Negative Negative Urine Bilirubin Negative Negative Urine Urobilinogen Normal Normal Ur Leukocyte Esterase 500 H 500 H Urine RBC > 100 SEEN 50-100 SEEN Urine WBC >100 SEEN >100 SEEN Ur Squamous Epith Cells 10-25 SEEN 0-5 SEEN Ur Transition Epith Cell 0-5 SEEN Urine Bacteria 3+ 3+ Urine Mucus 0 SEEN 0 SEEN Radiography Diagnostic Testing: Clinical Impression(s) from Imaging Studies Brain CT 05/04/24 15:15 IMPRESSION: Mild soft tissue swelling of the scalp posterior to the parietal lobes without associated skull fracture or acute intracranial bleed Mild atrophy and periventricular white matter ischemic changes.. Electronically Signed: Souleymane Mclaughlin MD at 16:30 EDT Reading Location ID and State: [address] [place] [address] Tel [phone], Service support , Cervical Spine CT 05/04/24 15:15 IMPRESSION: No evidence for acute fracture or subluxation. Advanced spondylosis and multilevel spinal stenosis secondary to disc disease and bony hypertrophy Electronically Signed: Souleymane Mclaughlin MD at 16:36 EDT Reading Location ID and State: [address] [place] [address] Tel [phone], Service support , Chest CT 05/04/24 15:15 IMPRESSION: ASHD. No acute cardiopulmonary pathology No evidence for acute rib fracture Electronically Signed: Souleymane Mclaughlin MD at 16:40 EDT Reading Location ID and State: [address] [place] [address] Tel [phone], Service support , Lumbar Spine CT 05/04/24 15:15 IMPRESSION: No evidence for acute fracture or subluxation.. Multilevel spinal stenosis secondary to disc disease and bony hypertrophy most severe on the right at L5-S1. This may be further assessed with MRI if clinically warranted Electronically Signed: Souleymane Mclaughlin MD at 16:47 EDT Reading Location ID and State: [address] [place] [address] Tel [phone], Service support , Discharge Plan Triage Chief Complaint: Fall ED Provider: Grant Peters Dx/Rx/DC Orders Clinical Impression: Fall, Subtherapeutic international normalized ratio (INR), Contusion of scalp, Laceration of scalp, Acute lumbar myofascial strain, Acute thoracic myofascial strain, Acute cervical myofascial strain, Acute cystitis, Contusion of rib on right side Instructions: ED Back Sprain/Strain, ED Bruise, Rib, ED Cystitis Female Adult Prescriptions: No Action albuterol sulfate 90 mcg/actuation HFA aerosol inhaler 2 puff INHALATION Q4H PRN (Reason: shortness of breath or wheezing) Qty: 8.5 6RF Rx Instructions: administer with spacer montelukast 10 mg tablet 10 mg PO QPM Qty: 30 3RF oxybutynin chloride 10 mg tablet extended release 24hr 10 mg PO DAILY Patient Comments: pt unsure if she is taking this med or not cholecalciferol (vitamin D3) 50 mcg (2,000 unit) capsule 50 mcg PO DAILY mecobalamin (vitamin B12) 1,000 mcg tablet,chewable 1,000 mcg PO DAILY glimepiride 2 mg tablet 2 mg PO DAILY warfarin 5 MG tablet 5 mg PO ONEL Protocol: Dose Management Condition: Thursday Dose/Route: 5 mg Instruction: 1 x 5 mg tablet Condition: Thursday Dose/Route: 5 mg Instruction: 1 x 5 mg tablet Condition: Thursday Dose/Route: 2.5 mg Instruction: 1 x 2.5 mg tablet Condition: Thursday Dose/Route: 2.5 mg Instruction: 1 x 2.5 mg tablet Condition: Dose/Route: 2.5 mg Instruction: 1 x 2.5 mg tablet Condition: Thursday Dose/Route: 2.5 mg Instruction: 1 x 2.5 mg tablet Condition: Thursday Dose/Route: 5 mg Instruction: 1 x 5 mg tablet Protocol Text: Adjustment Start Date: Thursday04/13/24 INR Value: 3.6 INR Date: 04/13/24 Recheck Date: 04/27/24 atorvastatin 10 MG tablet 10 mg PO QHS gabapentin 300 mg capsule 600 mg PO QHS Patient Comments: Take 2 capsules by mouth daily at bedtime AND 1 capsule every morning. gabapentin 300 mg capsule 300 mg PO BREAKFAST Patient Comments: Take 2 capsules by mouth daily at bedtime AND 1 capsule every morning. Rx Instructions: 300 mg orally; metformin 500 mg tablet extended release 24 hr 500 mg PO BID warfarin [] 2.5 mg tablet 2.5 mg PO THFR Protocol: Dose Management Condition: Thursday Dose/Route: 5 mg Instruction: 1 x 5 mg tablet Condition: Thursday Dose/Route: 5 mg Instruction: 1 x 5 mg tablet Condition: Thursday Dose/Route: 2.5 mg Instruction: 1 x 2.5 mg tablet Condition: Thursday Dose/Route: 2.5 mg Instruction: 1 x 2.5 mg tablet Condition: Dose/Route: 2.5 mg Instruction: 1 x 2.5 mg tablet Condition: Thursday Dose/Route: 2.5 mg Instruction: 1 x 2.5 mg tablet Condition: Thursday Dose/Route: 5 mg Instruction: 1 x 5 mg tablet Protocol Text: Adjustment Start Date: Thursday04/13/24 INR Value: 3.6 INR Date: 04/13/24 Recheck Date: 04/27/24 magnesium oxide 400 mg magnesium tablet 250 mg PO DAILY Symbicort 160-4.5 mcg/actuation HFA aerosol inhaler 2 puff INHALATION BID Qty: 10.2 11RF Primary Care Provider: Ro Reed Referrals: Ro Reed MD [Primary Care Provider] - 3-5 Days Print Language: Croatian Disposition Disposition: Home, Self Care Discharge Date/Time: 05/04/24 17:42
[2024-05-04 15:31] LABS: Mucous, Urine 0 SEEN /hpf (<or=2+)
[2024-05-04 15:33] VITALS: BP 182/82; PULSE 81; RESP 17; O2SAT 98
[2024-05-04] MEDS: Morphine 4 MG/ML Syringe IV (15:33)
[2024-05-04] MEDS: Ondansetron 4 MG/2 ML Vial IV (15:33)
[2024-05-04 15:47] LABS: Color, Urine Yellow (Yellow); Glucose, Dipstick Normal (Normal); Ketone-Dipstick Negative (Negative); Leukocyte Esterase-Dipstick 500 /ul (Negative); Nitrite-Dipstick Negative (Negative); Occult Blood-Urine 250 /ul (Negative); Protein-Dipstick 100 mg/dl (Negative); Urine Bilirubin Dipstick Negative (Negative); Urine Clarity Turbid (Clear); Urine Urobilinogen Normal (Normal)
[2024-05-04 15:52] LABS: Absolute Lymphocyte Count 0.79 X10^3/uL (0.83-4.51); Absolute Neutrophil Count 7.5 X10^3/uL (2.0-7.7); Basophil# 0.05 X10^3/uL; Basophil% 0.5 % (0-1); Eosinophil# 0.01 X10^3/uL; Eosinophils% 0.1 % (0-5); Hematocrit 44.2 % (37-47); Hemoglobin 15.1 g/dL (12.0-15.0); Lymphocyte # 0.79 X10^3/ul (0.83-4.51); Lymphocyte % 8.6 % (19-41); Mean Corp Hgb Conc 34.2 g/dL (32-36); Mean Corpuscular Hgb 31.9 pg (27.0-32.0); Mean Corpuscular Volume 93.2 fL (81-99); Mean Platelet Vol. 9.6 fl (6.2-12.0); Monocyte# 0.73 X10^3/uL; NRBC Flagged by Analyzer 0 % (0-5); Neutrophil # 7.54 X10^3/uL (2.7-7.7); Neutrophil % 82.3 % (47-70); Platelet Count 128 K/mm3 (150-450); RBC Distribution Width CV 12.4 % (11.6-14.6); RBC Distribution Width SD 42.7 fl (35.1-43.9); Red Blood Count 4.74 M/mm3 (4.2-5.4); White Blood Count 9.2 K/mm3 (4.4-11.0)
[2024-05-04 15:59] LABS: International Normalized Ratio 1.9
[2024-05-04 16:00] VITALS: BP 156/86; PULSE 61; RESP 21; O2SAT 94
[2024-05-04 16:03] LABS: Red Blood Cells-Urine > 100 SEEN /hpf (0-5); Squamous Epithelial Cells - UA 10-25 SEEN /hpf (5-10); White Blood Cells >100 SEEN /hpf (0-5)
[2024-05-04 16:04] LABS: Bacteria 3+ /hpf (None Seen)
[2024-05-04 16:06] LABS: Anion Gap 8 (5-15); BUN 12 mg/dL (7-18); Calcium,Total 9.7 mg/dL (8.5-10.1); Chloride 100 mmol/L (98-107); EST Glomerular Filtration Rate 57 mL/min (>60); Est Glom Filt Rate - Afr Amer 69 mL/min (>60); Estimated Creatinine Clearance 52.81 ml/min; Glucose 168 mg/dL (74-106); Potassium 3.6 mmol/L (3.5-5.1); Sodium Level 135 mmol/L (136-145)
[2024-05-04 16:31] LABS: Mucous, Urine 0 SEEN /hpf (<or=2+)
[2024-05-04 16:47] LABS: Color, Urine Yellow (Yellow); Glucose, Dipstick Normal (Normal); Ketone-Dipstick Negative (Negative); Leukocyte Esterase-Dipstick 500 /ul (Negative); Nitrite-Dipstick Negative (Negative); Occult Blood-Urine 250 /ul (Negative); Protein-Dipstick 100 mg/dl (Negative); Specific Gravity, Urine 1.005 (1.002-1.030); Urine Bilirubin Dipstick Negative (Negative); Urine Clarity Turbid (Clear); Urine Urobilinogen Normal (Normal)
[2024-05-04 16:54] LABS: Bacteria 3+ /hpf (None Seen); Red Blood Cells-Urine 50-100 SEEN /hpf (0-5); Squamous Epithelial Cells - UA 0-5 SEEN /hpf (5-10); Transitional Epithelial - Ur 0-5 SEEN /hpf (0-5); White Blood Cells >100 SEEN /hpf (0-5)
[2024-05-04 17:00] VITALS: BP 149/72; PULSE 63; RESP 21; O2SAT 92
[2024-05-04 17:42] VITALS: BP 138/77; PULSE 71; RESP 18; TEMP 36.6; O2SAT 98
== END 2024-05-04 17:42 | disposition home or self-care (01) ==
PROVIDERS: Emergency Provider Emergency Medicine; PCP Internal Medicine; Visit Provider Emergency Medicine
DX: N30.00 Acute cystitis without hematuria (principal); I27.21 Secondary pulmonary arterial hypertension; I48.91 Unspecified atrial fibrillation; E11.9 Type 2 diabetes mellitus without complications; I10 Essential (primary) hypertension; S20.211A Contusion of right front wall of thorax, initial encounter; S16.1XXA Strain of muscle, fascia and tendon at neck level, initial encounter; S01.01XA Laceration without foreign body of scalp, initial encounter; S39.012A Strain of muscle, fascia and tendon of lower back, initial encounter; E78.5 Hyperlipidemia, unspecified; S00.03XA Contusion of scalp, initial encounter; W17.2XXA Fall into hole, initial encounter; T14.8XXA Other injury of unspecified body region, initial encounter; S29.012A Strain of muscle and tendon of back wall of thorax, initial encounter; Y92.89 Other specified places as the place of occurrence of the external cause; Z79.01 Long term (current) use of anticoagulants; Z79.899 Other long term (current) drug therapy; Z79.84 Long term (current) use of oral hypoglycemic drugs; Z95.0 Presence of cardiac pacemaker
CPT/HCPCS: 96374; 96375; 96376; 70450; 71250; 72125; 72131; 80048; 81001; 85025; 85610; 87086; 87088; 87186; 99285; P9612; A4216; J2405

== ENCOUNTER 2024-05-04 20:54 | Observation (INO) | payer MEDICARE, SELFPAY ==
[2024-05-04 20:55] VITALS: BP 168/83; PULSE 64; RESP 18; TEMP 37.2; O2SAT 98; BMI 30.6
[2024-05-04 21:00] VITALS: BP 168/83; PULSE 64; RESP 18; TEMP 37.2; O2SAT 98
[2024-05-04] MEDS: HYDROcodone Bitartrate/Apap 5/325 Tablet PO (21:33)
--- NOTE | 2024-05-04 21:40 | RAD_ITS ---
STUDY: X-RAY CHEST REASON FOR EXAM: Female, 79 years old. chest pain TECHNIQUE: AP portable COMPARISON: January 29, 2024 FINDINGS: The lungs are clear and expanded. There is no demonstrated pleural abnormality. Normal size heart. Normal mediastinum and mahendra. Normal visualized pulmonary arteries. Normal visualized aortic arch and descending thoracic aorta. Pacer noted on the left with electrodes in satisfactory position Dorsal spine demonstrates degenerative change. Normal visualized ribs, clavicles, and shoulders. There is no demonstrated abnormality of the visualized soft tissue structures of the upper abdomen. RAD/Chest 1 View (Portable) IMPRESSION: No acute cardiopulmonary pathology Electronically Signed: Souleymane Mclaughlin MD at 22:48 EDT ,
--- NOTE | 2024-05-04 21:49 | HP.PCM.HOS_ITS ---
HPI - General General Date of Admission: 05/04/24 Date of Service: 05/04/24 Chief Complaint: Confused per family, fall recently, return secondary to concern for self care ability. HPI Narrative The patient is a 79 y/o F w/ PMHx: Chronic Thrombocytopenia, PAF/Flutter s/p ablation, Obesity, Asthma, Allergic Rhinitis, HTN, HLD, Hx complete HB s/p pacemaker, RAMESH, CKD stage III unclear subtype, Diabetes mellitus type II, Hx Frequent Complicated UTIs w/ persistent history of bilateral hydroureteronephrosis with previous history of distal ureteral stricture following with Dr. Samaniego with most recent intervention 12/2023 with cystoscopy with right ureteral stent placement 01/22/24 and unfortunately continued right hydronephrosis on repeat imaging with appropriate urine output and planned ongoing outpatient follow-up, recent ED evaluation earlier in the day at approximately 1519 with history of unfortunate fall with head injury and back discomfort noted to been on the gravel driveway stepping into a depression unfortunately leading to her falling backwards with no loss of consciousness but since then some mid back discomfort extending over into the posterior right chest wall with a mild headache and bleeding from the occiput secondary to the fall onto the rocks prompting evaluation at that time with appropriate hemoglobin, INR 1.9, urinalysis noted to be turbid with occult blood 250, leukocyte Estrace 500, negative nitrite, urine RBC and a BCs greater than 100 although urine squamous epithelial cells unfortunately high 10-25 with 3+ urine bacteria however this was repeated and similarly even with appropriate squamous epithelial cells was still significant, CT of the brain with mild soft tissue swelling of the scalp posterior to the parietal lobes without any associated skull fracture or intracranial bleeding, CT cervical spine with no evidence for any acute fracture or subluxation, CT chest with no acute cardiopulmonary pathology and no evidence of any acute rib fractures, CT lumbar spine with no evidence of any acute fracture or subluxation with chronic findings discharged to home on cephalexin 5 mg p.o. every 8 x 7 days planned as well as Percocet small quantity for discomfort who now represents to the [facility] ED later in the evening on 05/04/24 secondary to family concern about inability for patient to be cared for at home as no one can be with her tonight or tomorrow with unchanged cognition per EMS but family is worried about recurrent bleeding from the laceration to the posterior scalp prompting them to bring her back in. Although patient per family has been confused in the emergency room she is alert and oriented to herself and recent events. EMS did report that she was at her baseline but has some chronic confusion. Patient notes that she has a constant dull aching throb in her right rib laterally as well as to her back cervical through lumbar worse with movement and even with turning in the bed. She does report still throbbing mild posterior headache but it is improving with no light and sound sensitivity. Current evaluation includes T99, heart rate 64, BP 160/83, respiratory rate 18, 98% room air. Recent previous ED evaluation with CBC with WBC 9.2, hemoglobin 15.1, MCV 93.2, platelet 128 with increased neutrophils with lymphopenia, INR 1.9, BMP with sodium 135, BUN/creatinine 12/1.0, GFR 57, glucose 168, UA evaluation as noted above. Urine culture pending from recent ED evaluation prior. In the ED upon re-evaluation patient ministered [place] 1 tab p.o. x 1 and IV Rocephin 1 g x 1. [facility] Medical History Wears glasses Wears dentures Post-menopausal Sore on leg Arthritis Dietary restriction CPAP (continuous positive airway pressure) dependence Non-smoker Shortness of breath on exertion Cardiology follow-up encounter History of stress test History of echocardiogram Ureteral mass Hydronephrosis, right Fracture of left elbow History of complete heart block Cervical strain, acute COVID-19 Essential hypertension Hyperlipidemia RAMESH (obstructive sleep apnea) Asthma DDD (degenerative disc disease) Shoulder dislocation Contact dermatitis and other eczema Allergic rhinitis 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 Obesity Diabetes mellitus Hypersomnia Other secondary pulmonary hypertension BMI 33.0-33.9,adult Hx of bladder infections long-term (current) use of anticoagulants Atrial fibrillation Home Medications ?Medication ?Instructions ?Recorded ?Last Taken ?Type warfarin 5 mg tablet 5 mg PO SUMOTUWESA blood thinner 11/18/18 05/04/24 History atorvastatin 10 mg tablet 10 mg PO QHS cholesterol 12/11/19 05/03/24 History gabapentin 300 mg capsule 300 mg PO BREAKFAST nerve pain 08/04/22 05/04/24 History gabapentin 300 mg capsule 600 mg PO QHS Neuropathy 08/04/22 05/03/24 History warfarin 2.5 mg tablet (Jantoven) 2.5 mg PO THFR blood thinner 12/30/23 01/16/24 History budesonide-formoterol HFA 160 2 puff inhalation BID asthma #10.2 01/20/24 05/04/24 Rx mcg-4.5 mcg/actuation aerosol grams inhaler (Symbicort) albuterol sulfate 90 mcg/actuation 2 puff inhalation Q4H PRN 03/04/24 Unknown Rx aerosol inhaler shortness of breath or wheezing #8.5 grams montelukast 10 mg tablet 10 mg PO QPM #30 tabs 03/04/24 05/04/24 Rx cholecalciferol (vitamin D3) 50 50 mcg PO DAILY 04/13/24 05/04/24 History mcg (2,000 unit) capsule glimepiride 2 mg tablet 2 mg PO DAILY 04/13/24 05/04/24 History magnesium oxide 250 mg PO DAILY SUPPLEMENT 04/13/24 05/04/24 History mecobalamin (vitamin B12) 1,000 1,000 mcg PO DAILY 04/13/24 05/04/24 History mcg chewable tablet metformin 500 mg tablet,extended 500 mg PO BID DM 04/13/24 05/04/24 History release 24 hr oxybutynin chloride 10 mg 10 mg PO DAILY 04/13/24 Unknown History tablet,extended release 24 hr Allergy/AdvReac Type Severity Reaction Status Date / Time amoxicillin Allergy Severe Hives Verified 05/04/24 20:56 aspirin Allergy Severe Hives, SOB Verified 05/04/24 20:56 Sulfa (Sulfonamide Allergy Severe Hives Verified 05/04/24 20:56 Antibiotics) Family History Mother Diabetes Father CAD (coronary artery disease) Sister Lung cancer Son Kidney stone Surgical History History of cystoscopy Hx of right cataract extraction Hx of left cataract extraction Presence of permanent cardiac pacemaker (04/01/19) History of kidney surgery History of appendectomy Social History household members: none housing: house number of children: 3 current occupational status: retired Smoking Status: Never smoker alcohol intake: never substance use type: does not use what type of physical activity do you participate in: none do you feel safe at home: Yes DIMA CH Narrative Admission Review of Systems: CONSTITUTIONAL: No weight loss, fever, chills, + weakness or fatigue. HEENT: + Headache, recent fall with posterior laceration. Eyes: No visual loss, blurred vision, double vision or yellow sclerae. Ears, Nose, Throat: No hearing loss, sneezing, congestion, runny nose or sore throat. SKIN: No rash or itching, lesions, wounds except bilateral lower extremity stasis skin changes as well as recent posterior scalp laceration, no recurrent bleeding per her report. CARDIOVASCULAR: + Right lateral chest focal pain, chronic lower extremity swelling. No palpitations, orthopnea, syncopal events. RESPIRATORY: No shortness of breath, cough or sputum, wheezing, hemoptysis. GASTROINTESTINAL: No anorexia, nausea, vomiting or diarrhea, abdominal pain, melena, BRBPR. GENITOURINARY: No dysuria, frequency, urgency or retention. NEUROLOGICAL: + headache. Dizziness, syncope, paralysis, ataxia, numbness or tingling in the extremities, focal weakness, change in bowel or bladder control, seizure. MUSCULOSKELETAL: + muscle, back pain, joint pain or stiffness. HEMATOLOGIC: No anemia. + History of easy bleeding/bruising. LYMPHATICS: No enlarged nodes. No history of splenectomy. PSYCHIATRIC: No history of depression or anxiety. ENDOCRINOLOGIC: No reports of sweating, cold or heat intolerance. No polyuria or polydipsia. ALLERGIES: + Asthma with history of allergic rhinitis. Vital Signs Vital Signs Vital Signs: 05/04/24 20:55 05/04/24 20:55 05/04/24 21:00 Temperature 99 F 99 F Temperature Source Oral Oral Pulse Rate 64 64 Respiratory Rate 18 18 Respiratory Effort Normal Non-Labored Respiratory Pattern Normal Blood Pressure 168/83 H 168/83 H Blood Pressure Mean 111 111 Pulse Ox 98 98 Oxygen Delivery Method Room Air Room Air Weight Weight: 201 lb 8.04 oz Body Mass Index (BMI) 30.6 Physical Exam Narrative Physical Examination: General: Awake, alert, oriented to self, place, some recent events, family does believe that she is more confused than her baseline, laying in the ED bed, notes ongoing discomfort of the right lateral ribs and back. Skin: Normal color, normal turgor, no icterus, no cyanosis except various staged ecchymoses, recent fall, posterior scalp with well-approximated laceration with no active bleeding currently HEENT: See skin with recent fall with posterior lack described/NC, EOMI, PERRLA, mildly dry MM, no carotid bruits or JVD noted; however thickened neck makes evaluation difficult. Lungs: Mildly diminished, greater bases, poor effort, no rales, ronchi or wheezing. Heart: Regular rate and rhythm; no gallop, rub audible. Abdomen: Soft, obese, mild generalized discomfort but no rebound or guarding, no marked distention, no obvious evidence of HSM. Extremities: No cyanosis, no clubbing, bilateral ankle to distal villagomez chronic nonpitting edema. Neurological: Patient awake, alert, oriented as noted, cognitive function not currently baseline intact but improving; pupils equally reactive to light and accommodation, cranial nerves grossly normal, moving all 4 extremities however somewhat limited because of pain more so especially with even attempting to turn over or sit up in bed, strength severely globally decreased secondary to acute presentation. Psychiatric: Affect appears fatigued, uncomfortable, no acute evidence of depressive or anxiety feelings. Assessment & Plan Assessment/Plan (1) Fall: (2) Acute cystitis: PLAN: Plan The patient is a 79 y/o F w/ PMHx: Chronic Thrombocytopenia, PAF/Flutter s/p ablation, Obesity, Asthma, Allergic Rhinitis, HTN, HLD, Hx complete HB s/p pacemaker, RAMESH, CKD stage III unclear subtype, Diabetes mellitus type II, Hx Frequent Complicated UTIs w/ persistent history of bilateral hydroureteronephrosis with previous history of distal ureteral stricture following with Dr. Samaniego with most recent intervention 12/2023 with cystoscopy with right ureteral stent placement 01/22/24 and unfortunately continued right hydronephrosis on repeat imaging with appropriate urine output and planned ongoing outpatient follow-up, recent ED evaluation earlier in the day at approximately 1519 with history of unfortunate fall with head injury and back discomfort noted to been on the gravel driveway stepping into a depression unfortunately leading to her falling backwards with no loss of consciousness but since then some mid back discomfort extending over into the posterior right chest wall with a mild headache and bleeding from the occiput secondary to the fall onto the rocks prompting evaluation at that time, discharged following evaluation but family now brings her back secondary to being unable to be at home with her and concern for recurrent fall potential. #1. Acute Encephalopathy secondary to Acute Complicated Urinary Tract Infection complicated by persistent history of bilateral hydroureteronephrosis with previous history of distal ureteral stricture following with Dr. Samaniego hydroureteronephrosis with distal ureteral stricture with congenital obstructive defect of the renal pelvis and ureter: Will admit to [facility] upon ED evaluation remarkable, had planned outpatient treatment on oral antibiotic therapy but given return and family concerns for inability for patient to be cared for at home transition to ED again for evaluation, currently pending UCx from earlier in the day, continue IVFs, monitor I/Os, continue IV Rocephin following review of most recent previous cultures noted 12/29/23 with E. coli with bella sensitivity noted w/ transition as able pending sensitivities and speciation. Low threshold if necessary to repeat CT abdomen and pelvis if felt appropriate given history the patient has been following closely outpatient already with urology. PT/OT/case management consultation for discharge planning. #2. 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 Will temporally hold Coumadin and continue to monitor for any recurrent bleeding. Would is well appoximated with ED glue. #3. Diabetes mellitus type II with chronic neuropathy: Hold oral home regimen, ADA diet, accu checks w/ ISS, continue chronic home gabapentin regimen. #4. Hypertension: BP upon presentation above goal however patient with recent fall and discomfort; however, not on any hypertensive regimen unfortunately pote ntially related with previous recent falls with hypotension but uncertain. Will continue to monitor and add back regimen if felt necessary. In the interim we will have IV hydralazine as needed. #5. Hyperlipidemia: We will continue patient on statin therapy. #6. Chronic Kidney Disease Stage III, unclear subtype per previous GFR trending although appears to have vacillated: Admission BUN/Cr from earlier upon initial ED evaluation 12/1.0, GFR 57, GFR 55, baseline renal function primarily 0.9-1.0, repeat BMP in AM. #7. PAF/flutter: Status post previous ablation, not on any rate or rhythm agent but clarifying, holding Coumadin given recent fall, resume once appropriate. #8. History complete heart block: Status post pacemaker placement. #9. Obesity: Weight loss and lifestyle changes encouraged. #10. Chronic asthma with allergic rhinitis: We will temporally hold home inhalers in the interim placed on ATC budesonide therapy, PRN albuterol, HOB, IS parameters, continue patient home montelukast regimen. #11. Chronic thrombocytopenia, unclear specific etiology: Admission platelets from previous ED evaluation earlier in the day 128, similar to baseline, continue to trend. #12. RAMESH: CPAP nightly. #13. DVT prophylaxis: Holding Coumadin given presentation, presentation INR 1.9, will repeat INR in a.m., maintain SCDs. #14. CODE status: Patient HCPOA and LW are not in place but her daughter would be her decision-maker if necessary. Full Code status. Charges/Coding Visit Charges Inpatient E&M: 21512 Init Hosp L3
[2024-05-04] MEDS: Ceftriaxone 1 GM/50 ML BAG IV (21:59)
[2024-05-04 22:03] VITALS: BP 130/98; PULSE 68; RESP 22; TEMP 37.2; O2SAT 94
[2024-05-04 22:05] VITALS: BP 138/89; PULSE 68; RESP 22; TEMP 37.2; O2SAT 94
[2024-05-04 23:12] VITALS: BMI 28.5
[2024-05-04 23:26] VITALS: BP 144/61; PULSE 60; RESP 20; TEMP 36.6; O2SAT 97
[2024-05-04] MEDS: 0.9% Normal Saline (1000mL) 1,000 ML 100 ML IV (23:43)
[2024-05-04] MEDS: Acetaminophen 325 MG Tablet 650 MG PO (23:46)
[2024-05-04] MEDS: oxyCODONE 5 MG Tablet PO (23:46)
[2024-05-04] MEDS: Gabapentin 300 MG Capsule 600 MG PO (23:46)
[2024-05-04] MEDS: Lidocaine 5% Patch 2 PATCH TOPICAL (23:47)
[2024-05-04] MEDS: Atorvastatin Calcium 10 MG Tablet PO (23:47)
[2024-05-05] VITALS (7 sets, daily range): BP systolic 86–128; BP diastolic 54–76; PULSE 60–65; RESP 16–20; TEMP 36.6–36.8; O2SAT 91–100; BMI 28.3
[2024-05-05 00:01] LABS: Bedside Glucose 137 mg/dL (74-106)
--- NOTE | 2024-05-05 01:33 | CPS ---
Pt refuses CPAP at this time per RN
[2024-05-05] MEDS: oxyCODONE 5 MG Tablet PO ×2 (06:36→10:22)
[2024-05-05] MEDS: Acetaminophen 325 MG Tablet 650 MG PO (06:37)
[2024-05-05 06:49] LABS: Bedside Glucose 84 mg/dL (74-106)
[2024-05-05] MEDS: Budesonide Respules 0.5 MG/2 ML AMPUL.NEB. INHALATION ×2 (07:41→20:42)
[2024-05-05 08:42] LABS: Absolute Lymphocyte Count 0.49 X10^3/uL (0.83-4.51); Absolute Neutrophil Count 8.7 X10^3/uL (2.0-7.7); Basophil# 0.04 X10^3/uL; Basophil% 0.4 % (0-1); Eosinophil# 0.08 X10^3/uL; Eosinophils% 0.8 % (0-5); Hematocrit 37.3 % (37-47); Hemoglobin 12.5 g/dL (12.0-15.0); Lymphocyte # 0.49 X10^3/ul (0.83-4.51); Lymphocyte % 4.8 % (19-41); Mean Corp Hgb Conc 33.5 g/dL (32-36); Mean Corpuscular Hgb 32.4 pg (27.0-32.0); Mean Corpuscular Volume 96.6 fL (81-99); Mean Platelet Vol. 9.8 fl (6.2-12.0); Monocyte# 0.76 X10^3/uL; Monocyte% 7.5 % (0-10); NRBC Flagged by Analyzer 0 % (0-5); Neutrophil # 8.69 X10^3/uL (2.7-7.7); POSITIVE DIFFERENTIAL YES; Platelet Count 110 K/mm3 (150-450); RBC Distribution Width CV 12.5 % (11.6-14.6); RBC Distribution Width SD 44.3 fl (35.1-43.9); Red Blood Count 3.86 M/mm3 (4.2-5.4); White Blood Count 10.1 K/mm3 (4.4-11.0)
[2024-05-05] MEDS: Morphine 2 MG/ML Syringe IV (08:55)
[2024-05-05] MEDS: Lidocaine 5% Patch 2 PATCH TOPICAL (08:55)
[2024-05-05] MEDS: Gabapentin 300 MG Capsule PO (08:55)
[2024-05-05] MEDS: Tolterodine Tartrate 2 MG CAP.SA PO (08:56)
[2024-05-05] MEDS: Ondansetron 4 MG/2 ML Vial IV (08:56)
[2024-05-05] MEDS: Menthol/Lanolin/Calamine/Znox 113 GM Tube 1 APPLIC TOPICAL ×2 (08:56→21:47)
[2024-05-05] MEDS: Nystatin Powder 15gm Bottle 1 APPLIC TOPICAL ×2 (08:56→21:45)
[2024-05-05] MEDS: 0.9% Saline Lock 10 ML Syringe IV ×2 (08:57→21:47)
--- NOTE | 2024-05-05 09:03 | PN.HOSP_ITS ---
Reason for Visit Reason for Visit: Diagnoses Acute cystitis without hematuria (05/04/24) Unspecified fall, initial encounter (05/04/24) Objective Data Objective Data Vital Signs: Vital Signs Temp Pulse Resp BP Pulse Ox O2 Del Method 36.6 C 60 20 H 123/54 H 92 Room Air 05/05/24 08:50 05/05/24 08:50 05/05/24 08:50 05/05/24 08:50 05/05/24 08:50 05/05/24 08:50 Oxygen Delivery Method Room Air Weight: 84.9 kg Body Mass Index (BMI) 28.3 Intake & Output: Intake and Output for Last 24 Hours 05/03/24 05/04/24 05/05/24 23:59 23:59 23:59 Intake Total 50 / 250 400 / 400 Balance 50 / 250 400 / 400 Lab / Micro Data 05/05/24 08:32 05/05/24 08:32 Labs: Laboratory Results - last 24 hr 05/04/24 23:42: POC Glucose 137 H 05/05/24 06:30: POC Glucose 84 05/05/24 08:32: WBC 10.1, RBC 3.86 L, Hgb 12.5, Hct 37.3, MCV 96.6, MCH 32.4 H, MCHC 33.5, RDW Std Deviation 44.3 H, RDW Coeff of Jason 12.5, Plt Count 110 L, MPV 9.8, Immature Gran % (Auto) 0.500, Neut % (Auto) 86.0 H, Lymph % (Auto) 4.8 L, [place] % (Auto) 7.5, Eos % (Auto) 0.8, Baso % (Auto) 0.4, Absolute Neuts (auto) 8.7 H, Absolute Lymphs (auto) 0.49 L, Nucleated RBC % 0 Radiography Diagnostic Testing: Radiology Impression Chest X-Ray 05/04/24 21:40 IMPRESSION: No acute cardiopulmonary pathology Electronically Signed: Souleymane Mclaughlin MD at 22:48 EDT Reading Location ID and State: [facility] / [place] Tel , Service support , Assessment & Plan Assessment/Plan (1) Fall: (2) Acute cystitis: PLAN: Plan Acute Metabolic Encephalopathy * likely 2/2 UTI * supportive mgmt. avoid potentiating medications. UTI: * on CTX * h/o right hydronephrosis with right ureteral stent * follow up Cx Recent mechanical fall with posterior scalp laceration * CT the brain with no acute findings, CT cervical spine with no acute findings, * Would is well approximated with ED glue. Chronic conditions: * Diabetes mellitus type II with chronic neuropathy: Hold oral home regimen, ADA diet, accu checks w/ ISS, continue chronic home gabapentin regimen. * Hypertension: BP upon presentation above goal however patient with recent fall and discomfort; however, not on any hypertensive regimen unfortunately potentially related with previous recent falls with hypotension but uncertain. Will continue to monitor and add back regimen if felt necessary. In the interim we will have IV hydralazine as needed. * Hyperlipidemia: We will continue patient on statin therapy. * Chronic Kidney Disease Stage III, * PAF/flutter: Status post previous ablation, not on any rate or rhythm agent but clarifying, holding Coumadin given recent fall, resume once appropriate. * History complete heart block: Status post pacemaker placement. * Obesity: Weight loss and lifestyle changes encouraged. * Chronic asthma with allergic rhinitis: We will temporally hold home inhalers in the interim placed on ATC budesonide therapy, PRN albuterol, HOB, IS parameters, continue patient home montelukast regimen. * Chronic thrombocytopenia, unclear specific etiology: Admission platelets from previous ED evaluation earlier in the day 128, similar to baseline, continue to trend. * RAMESH: CPAP nightly. DVT prophylaxis: Holding Coumadin given presentation, presentation INR 1.9, will repeat INR in a.m., maintain SCDs. CODE status: Full Code status.
--- NOTE | 2024-05-05 09:03 | PCM.PN.HOSP ---
Reason for Visit Reason for Visit: Diagnoses Acute cystitis without hematuria (05/04/24) Unspecified fall, initial encounter (05/04/24) Subjective Subjective Notes that she had been feeling weak. Fell in her driveway and hit her head. Cleaning up pain going down her back since the fall. Objective Data Objective Data Vital Signs: Vital Signs Temp Pulse Resp BP Pulse Ox O2 Del Method 36.6 C 60 20 H 123/54 H 92 Room Air 05/05/24 08:50 05/05/24 08:50 05/05/24 08:50 05/05/24 08:50 05/05/24 08:50 05/05/24 08:50 Oxygen Delivery Method Room Air Weight: 84.9 kg Body Mass Index (BMI) 28.3 Intake & Output: Intake and Output for Last 24 Hours 05/03/24 05/04/24 05/05/24 23:59 23:59 23:59 Intake Total 50 / 250 400 / 400 Balance 50 / 250 400 / 400 Lab / Micro Data 05/05/24 08:32 05/05/24 08:32 Labs: Laboratory Results - last 24 hr 05/04/24 23:42: POC Glucose 137 H 05/05/24 06:30: POC Glucose 84 05/05/24 08:32: WBC 10.1, RBC 3.86 L, Hgb 12.5, Hct 37.3, MCV 96.6, MCH 32.4 H, MCHC 33.5, RDW Std Deviation 44.3 H, RDW Coeff of Jason 12.5, Plt Count 110 L, MPV 9.8, Immature Gran % (Auto) 0.500, Neut % (Auto) 86.0 H, Lymph % (Auto) 4.8 L, [place] % (Auto) 7.5, Eos % (Auto) 0.8, Baso % (Auto) 0.4, Absolute Neuts (auto) 8.7 H, Absolute Lymphs (auto) 0.49 L, Nucleated RBC % 0 Radiography Diagnostic Testing: Radiology Impression Chest X-Ray 05/04/24 21:40 IMPRESSION: No acute cardiopulmonary pathology Electronically Signed: Souleymane Mclaughlin MD at 22:48 EDT , Physical Exam Const alert and no apparent distress HEENT HEENT Narrative: Blood matting in the back of her head. No open wounds identified. Resp normal respiratory effort, no retractions, no use of accessory muscles and clear to auscultation bilaterally Cardio regular rate, regular rhythm, S1 normal heart sound and S2 normal heart sound GI normal to inspection, nondistended, normoactive bowel sounds, soft to palpation, non-tender and non-distended Back/Spine Back/Spine Narrative: Bilateral diffuse paraspinal tenderness. Extremity normal to inspection Assessment & Plan Assessment/Plan (1) Fall: (2) Acute cystitis: PLAN: Plan Acute Metabolic Encephalopathy likely 2/2 to post concussion. Patient appears stable at this time. UTI: on CTX h/o right hydronephrosis with right ureteral stent follow up Cx Recent mechanical fall with posterior scalp laceration CT the brain with no acute findings, CT cervical spine with no acute findings, Would is well approximated with ED glue. Wound appears to be intact. Patient did sustain some muscle tenderness throughout her paraspinal muscles post fall. Supportive management. Patient had stepped in to have a depression in the driveway and fell backwards hitting her head. Patient had been notably feeling weak before that so that may have been precipitated by an underlying urinary tract infection. PT OT evaluate and treat Chronic conditions: Diabetes mellitus type II with chronic neuropathy: Hold oral home regimen, ADA diet, accu checks w/ ISS, continue chronic home gabapentin regimen. Hypertension: BP upon presentation above goal however patient with recent fall and discomfort; however, not on any hypertensive regimen unfortunately potentially related with previous recent falls with hypotension but uncertain. Will continue to monitor and add back regimen if felt necessary. In the interim we will have IV hydralazine as needed. Hyperlipidemia: We will continue patient on statin therapy. Chronic Kidney Disease Stage III, PAF/flutter: Status post previous ablation, not on any rate or rhythm agent but clarifying, holding Coumadin given recent fall, resume once appropriate. History complete heart block: Status post pacemaker placement. Obesity: Weight loss and lifestyle changes encouraged. Chronic asthma with allergic rhinitis: We will temporally hold home inhalers in the interim placed on ATC budesonide therapy, PRN albuterol, HOB, IS parameters, continue patient home montelukast regimen. Chronic thrombocytopenia, unclear specific etiology: Admission platelets from previous ED evaluation earlier in the day 128, similar to baseline, continue to trend. RAMESH: CPAP nightly. DVT prophylaxis: Holding Coumadin given presentation, presentation INR 1.9, will repeat INR in a.m., maintain SCDs. CODE status: Full Code status. Charges/Coding Visit Charges Inpatient E&M: 99002 Subs Hosp L2
[2024-05-05 09:08] LABS: ALB/GLOB Ratio 0.8 RATIO (0.9-2.4); AST(SGOT) 19 U/L (15-37); Alanine Aminotransfer ALT/SGPT 9 U/L (13-56); Albumin, Serum 2.9 g/dL (3.2-5.0); Alkaline Phosphatase 75 U/L (45-117); Anion Gap 7 (5-15); BUN 19 mg/dL (7-18); BUN/Creat Ratio 15.2 RATIO (10-20); Calcium,Total 8.5 mg/dL (8.5-10.1); Chloride 106 mmol/L (98-107); Creatinine, Serum 1.25 mg/dL (0.55-1.02); EST Glomerular Filtration Rate 44 mL/min (>60); Est Glom Filt Rate - Afr Amer 53 mL/min (>60); Estimated Creatinine Clearance 43.02 ml/min; Globulin 3.7 g/dL (2.2-4.2); Glucose 110 mg/dL (74-106); Potassium 3.8 mmol/L (3.5-5.1); Protein, Total 6.6 g/dL (6.4-8.2); Sodium Level 138 mmol/L (136-145)
[2024-05-05 09:55] LABS: International Normalized Ratio 2.2; Prothrombin Time (Protime)PT. 24.7 SECONDS (11.7-14.9)
[2024-05-05] MEDS: Senna/Docusate Sodium 1 Tablet 2 TABLET PO (10:22)
--- NOTE | 2024-05-05 10:57 | CASEMGMT ---
Addendum entered by Keren Hawkins 05/05/24 11:25: SW called pt daughter & Brooke ORTIZ, and left a voicemail. BRITTANY Lara Original Note: Social Work- SW met with pt to discuss preferences at d/c. SW noted immediate confusion, inability to complete ideas, with slowed speech pattern and aphasia and incoherent thought flow. Pt reports 5 falls in one month; pt unable to verbalize if she feels off balance, has dizziness, or if there is a pattern to falls. Pt reports that yesterday, she fell twice; once from her porch and once from a hole in her driveway. Pt reports that granddaughter was at her home and called the fire department. Pt reports that it was bad. Pt reports that when she attempted to go home following ED visit, daughter hit every bump, which was extremely painful and pt could not tolerate pain. Pt reports that her daughter lives across the road and her son lives next door. Pt other daughter lives in [place]. Pt reports that her 4 weeks ago. Pt reports that she had to move following spouse's ; abdirizak bought trailer for pt to live in. Pt reports that she owes $8000 on the trailer yet. Pt reports that she does not have a medical alert button. Pt reports that she makes own meals, is able to care for the home, and is independent at home. Pt also reported that daughter is at pt home more than her own home. Pt reports that abdirizak cares for the outdoor upkeep. Pt reports that she has no in-home assistance and she does great. Pt was not able to answer if daughter was coming in to visit, stating that daughter has 4-H and drifting off before ending with you got it. Pt often inserted you got it or you got that right when she lost idea flow or was unable to produce the needed words to complete a sentence or idea. SW to follow up with daughter. BRITTANY Lara
[2024-05-05] MEDS: Insulin Lispro 100 UNIT/ML INSULN.PEN SC ×2 (11:32→16:42)
[2024-05-05 11:46] LABS: Bedside Glucose 151 mg/dL (74-106)
--- NOTE | 2024-05-05 12:12 | CASEMGMT ---
Social Work- SW spoke with pt daughter, Brooke. Brooke states that she has noted some confusion in pt and that pt has recently had a dr visit to address confusion. Pt daughter reports that she learned that mom had not taken medications or eaten in two days at ED visit, as Brooke works during the day. Brooke reports that pt fell a week ago outside in her yard due to uneven ground. Brooke is unable to establish a pattern between other falls, but does acknowledge several recent falls. Brooke reports that the pt was with granddaughter in the car yesterday prior to fall. Granddaughter gave pt directives to stay in the car until granddaughter could assist pt to the porch; pt did not listen and impulsively exited the car then fell in a divot in the driveway. Brooke reports that granddaughter called her panicked due to head injury before being told to call the squad. Brooke reports that pt has an old, fat dog named Lux who lives in the home. Pt neighbor has a puppy, Elizabeth, who is very friendly. Neither dog was involved in the fall yesterday or other/prior falls. Brooke did report in August pt's other dog was euthanized due to biting the landlord. Brooke reports that pt in 2010 not 4 weeks ago as pt had stated. Brooke reports that pt came back to ED last night because once pt returned home, she became unable to engage in conversation/take direction, only moaning in pain. When pt granddaughter could not get her up to use the restroom d/t lack of responsiveness from pt following command, squad was called back to the home. Pt daughter is interested in SNF list. SW to provide a list of SNF providers including quality and resource use data and consistent with the patient?s preferred geographic region, medical needs, and insurance network were provided from the [employer] for daughter who will be in to visit pt after 5pm. Pt daughter will discuss list with pt. SW to also provide a list of [facility] providers and information on medical alert options for post-rehab per pt daughter request. Plan: SNF; skilled stay BRITTANY Lara
[2024-05-05] MEDS: Acetaminophen 500 MG Tablet 1000 MG PO ×2 (14:44→21:46)
--- NOTE | 2024-05-05 14:51 | NURSING ---
pt states she is unable to stand d/t the pain she is having and states that the pain is making her dizzy. pt returned to bed, bed exit on
[2024-05-05 17:02] LABS: Bedside Glucose 158 mg/dL (74-106)
[2024-05-05] MEDS: 0.9% Normal Saline (250mL Bag) 250 ML 15 ML IV (21:46)
[2024-05-05] MEDS: Montelukast 10 MG Tablet PO (21:46)
[2024-05-05] MEDS: Atorvastatin Calcium 10 MG Tablet PO (21:46)
[2024-05-05] MEDS: Gabapentin 300 MG Capsule 600 MG PO (21:46)
[2024-05-05] MEDS: Ceftriaxone 1 GM/50 ML BAG IV (21:47)
[2024-05-05 23:09] LABS: Bedside Glucose 120 mg/dL (74-106)
[2024-05-06] VITALS (7 sets, daily range): BP systolic 95–105; BP diastolic 53–59; PULSE 61–81; RESP 18; TEMP 36.5–36.6; O2SAT 95–99; BMI 28.4
[2024-05-06] MEDS: Acetaminophen 500 MG Tablet 1000 MG PO ×3 (05:17→22:36)
[2024-05-06 06:10] LABS: Absolute Lymphocyte Count 1.05 X10^3/uL (0.83-4.51); Absolute Neutrophil Count 4.2 X10^3/uL (2.0-7.7); Basophil# 0.04 X10^3/uL; Basophil% 0.7 % (0-1); Eosinophil# 0.25 X10^3/uL; Eosinophils% 4.1 % (0-5); Hematocrit 33.3 % (37-47); Hemoglobin 11.1 g/dL (12.0-15.0); Lymphocyte # 1.05 X10^3/ul (0.83-4.51); Lymphocyte % 17.4 % (19-41); Mean Corp Hgb Conc 33.3 g/dL (32-36); Mean Corpuscular Hgb 32.3 pg (27.0-32.0); Mean Corpuscular Volume 96.8 fL (81-99); Mean Platelet Vol. 10.1 fl (6.2-12.0); Monocyte# 0.47 X10^3/uL; Monocyte% 7.8 % (0-10); NRBC Flagged by Analyzer 0 % (0-5); Neutrophil # 4.21 X10^3/uL (2.7-7.7); Neutrophil % 69.7 % (47-70); POSITIVE COUNT YES; Platelet Count 99 K/mm3 (150-450); RBC Distribution Width CV 12.4 % (11.6-14.6); RBC Distribution Width SD 43.8 fl (35.1-43.9); Red Blood Count 3.44 M/mm3 (4.2-5.4)
[2024-05-06 07:13] LABS: Anion Gap 7 (5-15); BUN 32 mg/dL (7-18); BUN/Creat Ratio 17.6 RATIO (10-20); Calcium,Total 8.3 mg/dL (8.5-10.1); Chloride 104 mmol/L (98-107); Creatinine, Serum 1.82 mg/dL (0.55-1.02); EST Glomerular Filtration Rate 29 mL/min (>60); Est Glom Filt Rate - Afr Amer 35 mL/min (>60); Estimated Creatinine Clearance 29.58 ml/min; Glucose 108 mg/dL (74-106); Potassium 3.9 mmol/L (3.5-5.1); Sodium Level 134 mmol/L (136-145)
[2024-05-06 07:17] LABS: Bedside Glucose 112 mg/dL (74-106)
[2024-05-06] MEDS: Budesonide Respules 0.5 MG/2 ML AMPUL.NEB. INHALATION (07:32)
--- NOTE | 2024-05-06 07:57 | PN.HOSP_ITS ---
Reason for Visit Reason for Visit: Diagnoses Acute cystitis without hematuria (05/04/24) Unspecified fall, initial encounter (05/04/24) Subjective Subjective Feeling well. Does not want to go to a long term facility wishes to go home and take care of her dog as well as the neighborhood dog that she should not feed but she does feed. Says she got in a screeching fits with family members who wanted her to go to a long term facility where she did not want to go to 1 and wanted to go home. Objective Data Objective Data Vital Signs: Vital Signs Temp Pulse Resp BP Pulse Ox O2 Del Method O2 Flow Rate 36.5 C L 62 18 95/53 L 96 Nasal Cannula 2 05/06/24 05:07 05/06/24 05:07 05/06/24 05:07 05/06/24 05:07 05/06/24 05:07 05/06/24 05:07 05/06/24 05:07 Oxygen Flow Rate (L/min) 2 Oxygen Delivery Method Nasal Cannula Weight: 85.1 kg Body Mass Index (BMI) 28.4 Intake & Output: Intake and Output for Last 24 Hours 05/04/24 05/05/24 05/06/24 23:59 23:59 23:59 Intake Total 50 / 250 1750 / 1750 950 / 950 Balance 50 / 250 1750 / 1750 950 / 950 Lab / Micro Data 05/06/24 05:00 05/06/24 05:00 Labs: Laboratory Results - last 24 hr 05/05/24 08:32: WBC 10.1, RBC 3.86 L, Hgb 12.5, Hct 37.3, MCV 96.6, MCH 32.4 H, MCHC 33.5, RDW Std Deviation 44.3 H, RDW Coeff of Jason 12.5, Plt Count 110 L, MPV 9.8, Immature Gran % (Auto) 0.500, Neut % (Auto) 86.0 H, Lymph % (Auto) 4.8 L, [place] % (Auto) 7.5, Eos % (Auto) 0.8, Baso % (Auto) 0.4, Absolute Neuts (auto) 8.7 H, Absolute Lymphs (auto) 0.49 L, Nucleated RBC % 0, PT 24.7 H, INR 2.2, Sodium 138, Potassium 3.8, Chloride 106, Carbon Dioxide 25.0, Anion Gap 7, BUN 19 H, Creatinine 1.25 H, Estim Creat Clear Calc 43.02, Est GFR (MDRD) Af Amer 53 L, Est GFR (MDRD) Non-Af 44 L, BUN/Creatinine Ratio 15.2, Glucose 110 H, Calcium 8.5, Total Bilirubin 1.70 H, AST 19, ALT 9 L, Alkaline Phosphatase 75, Total Protein 6.6, Albumin 2.9 L, Globulin 3.7, Albumin/Globulin Ratio 0.8 L 05/05/24 11:28: POC Glucose 151 H 05/05/24 16:41: POC Glucose 158 H 05/05/24 21:45: POC Glucose 120 H 05/06/24 05:00: WBC 6.0, RBC 3.44 L, Hgb 11.1 L, Hct 33.3 L, MCV 96.8, MCH 32.3 H, MCHC 33.3, RDW Std Deviation 43.8, RDW Coeff of Jason 12.4, Plt Count 99 L, MPV 10.1, Immature Gran % (Auto) 0.300, Neut % (Auto) 69.7, Lymph % (Auto) 17.4 L, [place] % (Auto) 7.8, Eos % (Auto) 4.1, Baso % (Auto) 0.7, Absolute Neuts (auto) 4.2, Absolute Lymphs (auto) 1.05, Nucleated RBC % 0, Sodium 134 L, Potassium 3.9, Chloride 104, Carbon Dioxide 23.0, Anion Gap 7, BUN 32 H, Creatinine 1.82 H , Estim Creat Clear Calc 29.58, Est GFR (MDRD) Af Amer 35 L, Est GFR (MDRD) Non- Af 29 L, BUN/Creatinine Ratio 17.6, Glucose 108 H, Calcium 8.3 L 05/06/24 06:54: POC Glucose 112 H Physical Exam Const alert and no apparent distress HEENT head/scalp atraumatic and moist oral mucous membranes Neck no lymphadenopathy and supple Resp normal respiratory effort and no retractions Resp Narrative: bibasilar crackles. Cardio regular rate, regular rhythm, S1 normal heart sound and S2 normal heart sound GI normal to inspection, nondistended, normoactive bowel sounds, soft to palpation, non-tender and non-distended Assessment & Plan Assessment/Plan (1) Fall: (2) Acute cystitis: PLAN: Plan Acute Metabolic Encephalopathy * likely 2/2 to post concussion. Patient appears stable at this time. UTI: * on CTX * h/o right hydronephrosis with right ureteral stent * UCx showing presumptive E. coli, bella-sensitive Recent mechanical fall with posterior scalp laceration * CT the brain with no acute findings, CT cervical spine with no acute findings, * Would is well approximated with ED glue. * Wound appears to be intact. Patient did sustain some muscle tenderness throughout her paraspinal muscles post fall. Supportive management. * Patient had stepped in to have a depression in the driveway and fell backwards hitting her head. Patient had been notably feeling weak before that so that may have been precipitated by an underlying urinary tract infection. * PT OT evaluate and treat * CM spoke with family, interested in SNF. Chronic conditions: * Diabetes mellitus type II with chronic neuropathy: Hold oral home regimen, ADA diet, accu checks w/ ISS, continue chronic home gabapentin regimen. * Hypertension: BP upon presentation above goal however patient with recent fall and discomfort; however, not on any hypertensive regimen unfortunately potentially related with previous recent falls with hypotension but uncertain. Will continue to monitor and add back regimen if felt necessary. In the interim we will have IV hydralazine as needed. * Hyperlipidemia: We will continue patient on statin therapy. * Chronic Kidney Disease Stage III, * PAF/flutter: Status post previous ablation, not on any rate or rhythm agent but clarifying, holding Coumadin given recent fall, resume once appropriate. * History complete heart block: Status post pacemaker placement. * Obesity: Weight loss and lifestyle changes encouraged. * Chronic asthma with allergic rhinitis: We will temporally hold home inhalers in the interim placed on ATC budesonide therapy, PRN albuterol, HOB, IS parameters, continue patient home montelukast regimen. * Chronic thrombocytopenia, unclear specific etiology: Admission platelets from previous ED evaluation earlier in the day 128, similar to baseline, continue to trend. * RAMESH: CPAP nightly. DVT prophylaxis: Holding Coumadin given presentation, presentation INR 1.9, will repeat INR in a.m., maintain SCDs. CODE status: Full Code status. Charges/Coding Visit Charges Inpatient E&M: 21628 Subs Hosp L2
[2024-05-06] MEDS: Nystatin Powder 15gm Bottle 1 APPLIC TOPICAL ×2 (09:33→22:41)
[2024-05-06] MEDS: Menthol/Lanolin/Calamine/Znox 113 GM Tube 1 APPLIC TOPICAL (09:35)
[2024-05-06] MEDS: Lidocaine 5% Patch 2 PATCH TOPICAL (09:36)
[2024-05-06] MEDS: Tolterodine Tartrate 2 MG CAP.SA PO (09:38)
[2024-05-06] MEDS: Gabapentin 300 MG Capsule PO (09:45)
--- NOTE | 2024-05-06 11:57 | NURSING ---
Dmitriy Cox called. Update on mood & condition provided.
--- NOTE | 2024-05-06 12:26 | CASEMGMT ---
Social Work- SW met with pt to follow up on discussions on placement for rehab. Pt was A & O x 3 with some chronic confusion present. SW shared PT recommendations. Pt reports that she is unwilling to consider rehab, as she is concerned for her dog and also is comfortable at home, as everything is familiar and she does better at home. Pt reports that at home, she only walks to toilet and has walkers and canes at home to use if she feels unsteady. Pt reports that she would like assistance at home and daughter is checking in with a friend who may be able to provide HHC. SW inquired about other DME in the home. Pt reports that she has railings at the only steps up into trailer home. Pt reports that she would like grab bars in bathroom, as there currently are none. Pt reports that she would be open to Meals on Wheels, as she no longer cooks because dog no longer eats human food. Pt reports that her kids deliver her groceries. Pt reports that her granddaughter and daughter who live across the road work blueprint maker, but check on her via telephone during the day. Pt also reports that keishalormingo who lives across the driveway is often in and out and is home early afternoon and is available to assist pt if needed. Pt reports she goes to [facility] on Sundays with assistance when she is able, but otherwise does not leave the home. SW provided education on rehab length of stay and intent/purpose, as well as encouraging that rehab would allow gamily to set up some in-home supports for d/c. Pt preference at this time is home with [facility]. SW called pt daughter, Brooke, to discuss pt wishes. Brooke reports that her sister visited pt last night as well and repeatedly used the term prison, which is why pt is adamant that she will go home. Brooke reports that she continues to have concern about pt returning home and would like to talk to pt one-on-one rather than with sister present. SW advised that if pt is home with [facility], physician will d/c today and asked Brooke to call pt immediately to speak with her. Brooke agreeable and will call following conversation. BRITTANY Lara
[2024-05-06 12:27] LABS: Bedside Glucose 161 mg/dL (74-106)
[2024-05-06] MEDS: Insulin Lispro 100 UNIT/ML INSULN.PEN SC ×2 (12:27→22:35)
--- NOTE | 2024-05-06 13:21 | CASEMGMT ---
Addendum entered by Keren Hawkins 05/06/24 13:44: Social Work- SW received word from physician that pt will not d/c today. SW called daughter, Brooke, and left voicemail to relay information, as well as notified RNCM. Plan: D/c home with [facility] BRITTANY Lara Original Note: Social Work- SW spoke with Brooke, pt daughter, who states that pt is adamant about returning home. Brooke states that she has spoken with her daughter and siblings who have come up with a schedule so that someone is eating supper with pt 3-4 nights per week. Brooke reports that her daughter (pt granddaughter) will move her work hours and be staying with her during the daytime. Brooke reports that she spoke with pt to emphasize the importance of following safety protocol while at home. Brooke reports that pt is agreeable to C, MOW, Medical alert, and CHN. KATIE advised physician and RNCM of pt prefernce. BRITTANY Lara
--- NOTE | 2024-05-06 13:26 | DS.PCM_ITS ---
Providers Date of Admission: 05/04/24 Primary Care Physician: Dr. Ro Reed MD Reason For Visit: FALL, ENCEPHALOPATHY ?, UTI Diagnosis Discharge Diagnosis (1) Fall: Status: Acute Code(s): W19.XXXA - Unspecified fall, initial encounter (2) Acute cystitis: Status: Acute Code(s): N30.00 - Acute cystitis without hematuria Plan Acute Metabolic Encephalopathy * likely 2/2 to post concussion. Patient appears stable at this time. UTI: * on CTX * h/o right hydronephrosis with right ureteral stent * UCx showing presumptive E. coli, bella-sensitive * . Will discharge with nitrofurantoin Recent mechanical fall with posterior scalp laceration * CT the brain with no acute findings, CT cervical spine with no acute findings, * Would is well approximated with ED glue. * Wound appears to be intact. Patient did sustain some muscle tenderness throughout her paraspinal muscles post fall. Supportive management. * Patient had stepped in to have a depression in the driveway and fell backwards hitting her head. Patient had been notably feeling weak before that so that may have been precipitated by an underlying urinary tract infection. * PT OT evaluate and treat * CM spoke with family, interested in SNF. However, the patient does not want to go to a jail facility and is open to home health care. Case management discussed with the family. Chronic conditions: * Diabetes mellitus type II with chronic neuropathy: Hold oral home regimen, ADA diet, accu checks w/ ISS, continue chronic home gabapentin regimen. * Hypertension: BP upon presentation above goal however patient with recent fall and discomfort; however, not on any hypertensive regimen unfortunately potentially related with previous recent falls with hypotension but uncertain. Will continue to monitor and add back regimen if felt necessary. In the interim we will have IV hydralazine as needed. * Hyperlipidemia: We will continue patient on statin therapy. * Chronic Kidney Disease Stage III, * PAF/flutter: Status post previous ablation, not on any rate or rhythm agent but clarifying, holding Coumadin given recent fall, resume once appropriate. * History complete heart block: Status post pacemaker placement. * Obesity: Weight loss and lifestyle changes encouraged. * Chronic asthma with allergic rhinitis: We will temporally hold home inhalers in the interim placed on ATC budesonide therapy, PRN albuterol, HOB, IS parameters, continue patient home montelukast regimen. * Chronic thrombocytopenia, unclear specific etiology: Admission platelets from previous ED evaluation earlier in the day 128, similar to baseline, continue to trend. * RAMESH: CPAP nightly. DVT prophylaxis: Holding Coumadin given presentation, presentation INR 1.9, will repeat INR in a.m., maintain SCDs. CODE status: Full Code status. Medications at Discharge Home Medications warfarin 5 mg tablet 5 mg PO SUMOTUWESA blood thinner 11/18/18 atorvastatin 10 mg tablet 10 mg PO QHS cholesterol 12/11/19 gabapentin 300 mg capsule 300 mg PO BREAKFAST nerve pain 08/04/22 gabapentin 300 mg capsule 600 mg PO QHS Neuropathy 08/04/22 warfarin 2.5 mg tablet (Jantoven) 2.5 mg PO THFR blood thinner 12/30/23 budesonide-formoterol HFA 160 mcg-4.5 mcg/actuation aerosol inhaler (Symbicort) 2 puff inhalation BID asthma #10.2 grams 01/20/24 albuterol sulfate 90 mcg/actuation aerosol inhaler 2 puff inhalation Q4H PRN shortness of breath or wheezing #8.5 grams 03/04/24 montelukast 10 mg tablet 10 mg PO QPM #30 tabs 03/04/24 cholecalciferol (vitamin D3) 50 mcg (2,000 unit) capsule 50 mcg PO DAILY 04/13/24 glimepiride 2 mg tablet 2 mg PO DAILY 04/13/24 magnesium oxide 250 mg PO DAILY SUPPLEMENT 04/13/24 mecobalamin (vitamin B12) 1,000 mcg chewable tablet 1,000 mcg PO DAILY 04/13/24 metformin 500 mg tablet,extended release 24 hr 500 mg PO BID DM 04/13/24 oxybutynin chloride 10 mg tablet,extended release 24 hr 10 mg PO DAILY 04/13/24 Hospital Course Operations None Procedures None Summary of Care Provided Minutes Spent on Discharge: 35 Hospital Course: Patient had not been feeling well prior but was in the driveway and there is a depression which the patient was trying to get into a car and then fell backwards hitting her head. It was noted that the patient was confused and patient was brought to the hospital. Patient underwent a trauma workup that was negative but patient did have a small laceration in the back of her head that was sealed with medical adhesive. Patient was found to have a urinary tract infection and did receive ceftriaxone. Culture came back showing pansensitive probable E. coli. Patient will be discharged with Macrobid to complete a 7-day course of antibiotics. Family wanted the patient to go to a jail facility because of the weakness and the confusion. Patient has been very with it with me and does not demonstrate any overt confusion. She actually expressed that she had a screeching match with her family about this topic on the . Patient wishes to go home where she can attend to her dogs. Family yes did agree and I will arrange on family members being able to assist. Weight / BMI Weight Weight: 85.1 kg Body Mass Index (BMI) 28.4 ABG / Lab / Microbiology Data 05/06/24 05:00 05/06/24 05:00 Laboratory: Laboratory Results - last 24 hr 05/05/24 16:41: POC Glucose 158 H 05/05/24 21:45: POC Glucose 120 H 05/06/24 05:00: WBC 6.0, RBC 3.44 L, Hgb 11.1 L, Hct 33.3 L, MCV 96.8, MCH 32.3 H, MCHC 33.3, RDW Std Deviation 43.8, RDW Coeff of Jason 12.4, Plt Count 99 L, MPV 10.1, Immature Gran % (Auto) 0.300, Neut % (Auto) 69.7, Lymph % (Auto) 17.4 L, [place] % (Auto) 7.8, Eos % (Auto) 4.1, Baso % (Auto) 0.7, Absolute Neuts (auto) 4.2, Absolute Lymphs (auto) 1.05, Nucleated RBC % 0, Sodium 134 L, Potassium 3.9, Chloride 104, Carbon Dioxide 23.0, Anion Gap 7, BUN 32 H, Creatinine 1.82 H , Estim Creat Clear Calc 29.58, Est GFR (MDRD) Af Amer 35 L, Est GFR (MDRD) Non- Af 29 L, BUN/Creatinine Ratio 17.6, Glucose 108 H, Calcium 8.3 L 05/06/24 06:54: POC Glucose 112 H 05/06/24 12:09: POC Glucose 161 H D/C Instructions Discharge Diet: 2000 Calorie Control Diet Meaningful Use Info Meaningful Use Meaningful Use Diagnoses (Choose all that apply): None applicable Ischemic Stroke Statin Dosing Therapy Reference: STATIN DOSE THERAPY REFERENCE: * Patients > 75 years receive moderate or high dose statin therapy. * Patients 75 years or YOUNGER should receive HIGH intensity statin dose unless contraindicated. You will be required to document reason for non-treatment if statin daily dose does not meet guidelines. HIGH DOSE STATIN THERAPY DAILY Atorvastatin > than or = to 40 mg Rosuvastatin > than or = to 20 mg Amlodipine + Atorvastatin > than or = to 2.5/40 mg Ezetimibe + Simvastatin 10/80 mg Simvastatin 80mg Discharge Plan Admission Admit Date/Time: 05/04/24 21:52 Primary Reason for Your Visit: Urinary tract infection Attending Provider: Farhat Bone Primary Care Provider: Ro Reed Consulting Providers: Kassi Fisher Instructions Additional Instructions / Restrictions: You are admitted for weakness that you likely sustained with a urinary tract infection which led you to fall which you sustained a small laceration on your scalp. The emergency room was able to with that back together with medical adhesive. You will be on antibiotics at home (nitrofurantoin). Take that till completion. You will be going home and home health care services will be out to your house to continue to work with you. Discharge Orders/Prescriptions Prescriptions: No Action albuterol sulfate 90 mcg/actuation HFA aerosol inhaler 2 puff INHALATION Q4H PRN (Reason: shortness of breath or wheezing) Qty: 8.5 6RF Rx Instructions: administer with spacer montelukast 10 mg tablet 10 mg PO QPM Qty: 30 3RF oxybutynin chloride 10 mg tablet extended release 24hr 10 mg PO DAILY Patient Comments: pt unsure if she is taking this med or not cholecalciferol (vitamin D3) 50 mcg (2,000 unit) capsule 50 mcg PO DAILY mecobalamin (vitamin B12) 1,000 mcg tablet,chewable 1,000 mcg PO DAILY glimepiride 2 mg tablet 2 mg PO DAILY warfarin 5 MG tablet 5 mg PO ONEL Protocol: Dose Management Condition: Thursday Dose/Route: 5 mg Instruction: 1 x 5 mg tablet Condition: Thursday Dose/Route: 5 mg Instruction: 1 x 5 mg tablet Condition: Thursday Dose/Route: 2.5 mg Instruction: 1 x 2.5 mg tablet Condition: Thursday Dose/Route: 2.5 mg Instruction: 1 x 2.5 mg tablet Condition: Dose/Route: 2.5 mg Instruction: 1 x 2.5 mg tablet Condition: Thursday Dose/Route: 2.5 mg Instruction: 1 x 2.5 mg tablet Condition: Thursday Dose/Route: 5 mg Instruction: 1 x 5 mg tablet Protocol Text: Adjustment Start Date: Thursday04/13/24 INR Value: 3.6 INR Date: 04/13/24 Recheck Date: 04/27/24 atorvastatin 10 MG tablet 10 mg PO QHS gabapentin 300 mg capsule 600 mg PO QHS Patient Comments: Take 2 capsules by mouth daily at bedtime AND 1 capsule every morning. gabapentin 300 mg capsule 300 mg PO BREAKFAST Patient Comments: Take 2 capsules by mouth daily at bedtime AND 1 capsule every morning. Rx Instructions: 300 mg orally; metformin 500 mg tablet extended release 24 hr 500 mg PO BID warfarin [] 2.5 mg tablet 2.5 mg PO THFR Protocol: Dose Management Condition: Thursday Dose/Route: 5 mg Instruction: 1 x 5 mg tablet Condition: Thursday Dose/Route: 5 mg Instruction: 1 x 5 mg tablet Condition: Thursday Dose/Route: 2.5 mg Instruction: 1 x 2.5 mg tablet Condition: Thursday Dose/Route: 2.5 mg Instruction: 1 x 2.5 mg tablet Condition: Dose/Route: 2.5 mg Instruction: 1 x 2.5 mg tablet Condition: Thursday Dose/Route: 2.5 mg Instruction: 1 x 2.5 mg tablet Condition: Thursday Dose/Route: 5 mg Instruction: 1 x 5 mg tablet Protocol Text: Adjustment Start Date: Thursday04/13/24 INR Value: 3.6 INR Date: 04/13/24 Recheck Date: 04/27/24 magnesium oxide 400 mg magnesium tablet 250 mg PO DAILY Symbicort 160-4.5 mcg/actuation HFA aerosol inhaler 2 puff INHALATION BID Qty: 10.2 11RF Referrals / Follow Up: Ro Reed MD [Primary Care Provider] -
--- NOTE | 2024-05-06 13:55 | CASEMGMT ---
Dr. Bone states that the pt will not be discharging today due to Creatinine imbalances. The SW also updated this RN CM that the pt is refusing SNF placement short term and is wanting to go home. The pt is A&Ox3. This RN CM to pt room at this time to discuss DC planning. Pt states that she would like HHC set up. Pt refused the list of local in-network HHC companies that this RN CM offered to provide and the pt states that she would just like to go through [facility] HH services. Pt is also currently on additional oxygen that she does not normally wear at home. A verbal list of local in-network DME companies provided to the pt at this time, pt prefers [facility] for potential home oxygen needs. TC to [facility] HH and referral made to [facility] at this time for SN, SW, PT, and OT. [facility] states that they can accept the pt for SOC (05/10). Green sheet placed on pt chart in the case that the pt qualifies for home oxygen and to facilitate a weekend DC in regard to HH as well.
[2024-05-06] MEDS: 0.9% Normal Saline (1000mL) 1,000 ML 150 ML IV (15:30)
[2024-05-06] MEDS: 0.9% Saline Lock 10 ML Syringe IV (15:35)
[2024-05-06 16:25] LABS: Bedside Glucose 132 mg/dL (74-106)
[2024-05-06] MEDS: Ceftriaxone 1 GM/50 ML BAG IV (22:31)
[2024-05-06] MEDS: Montelukast 10 MG Tablet PO (22:35)
[2024-05-06] MEDS: Atorvastatin Calcium 10 MG Tablet PO (22:35)
[2024-05-06] MEDS: Gabapentin 300 MG Capsule 600 MG PO (22:41)
[2024-05-06 23:08] LABS: Bedside Glucose 161 mg/dL (74-106)
[2024-05-07 01:01] VITALS: BP 110/62; PULSE 62; RESP 14; TEMP 36.6; O2SAT 98
[2024-05-07] MEDS: oxyCODONE 5 MG Tablet PO (01:31)
[2024-05-07] MEDS: Morphine 2 MG/ML Syringe IV (02:20)
--- NOTE | 2024-05-07 02:52 | NURSING ---
Patient noted to be experiencing excruciating back pain. Upon assessment patient was silent until staff entered room, patient began thrashing and moaning out in pain, patient noted to not have been restful this shift and noted to not sleep at all so far this shift, confusion noted as well. PRN oxycodone given w/ zero resolution of pain. Patient continues to groan out in pain, patient then given PRN IV morphine by RN, patient was stable and no c/o pain for 20 minutes, patient then rang out light asking for more pain medications. Advised and gave patient teaching about pain medications.
--- NOTE | 2024-05-07 04:10 | NURSING ---
Patient noted to be confused this am approximately 0330. Patient got out of bed setting off alarms x2 without ringing call light/asking for assistance. Patient not requesting pain medicine once again, not due to morphine or oxir or tylenol for another hour at least.
[2024-05-07 05:12] VITALS: BMI 30.1
[2024-05-07 06:26] VITALS: BP 116/78; PULSE 60; RESP 12; TEMP 36.8; O2SAT 97
[2024-05-07] MEDS: Insulin Lispro 100 UNIT/ML INSULN.PEN SC (06:47)
[2024-05-07] MEDS: Acetaminophen 500 MG Tablet 1000 MG PO (06:48)
[2024-05-07 07:08] LABS: Bedside Glucose 182 mg/dL (74-106)
--- NOTE | 2024-05-07 07:52 | PN.HOSP_ITS ---
Reason for Visit Reason for Visit: Diagnoses Acute cystitis without hematuria (05/04/24) Unspecified fall, initial encounter (05/04/24) Subjective Subjective Feels well. Anxious to go home. Objective Data Objective Data Vital Signs: Vital Signs Temp Pulse Resp BP Pulse Ox O2 Del Method O2 Flow Rate 36.8 C 60 12 116/78 97 Nasal Cannula 2 05/07/24 06:26 05/07/24 06:26 05/07/24 06:26 05/07/24 06:26 05/07/24 06:26 05/07/24 06:26 05/07/24 06:26 Oxygen Flow Rate (L/min) 2 Oxygen Delivery Method Nasal Cannula Weight: 90.2 kg Body Mass Index (BMI) 30.1 Intake & Output: Intake and Output for Last 24 Hours 05/05/24 05/06/24 05/07/24 23:59 23:59 23:59 Intake Total 1750 / 1750 3250 / 3250 480 / 480 Balance 1750 / 1750 3250 / 3250 480 / 480 Lab / Micro Data 05/07/24 07:21 05/07/24 07:21 Labs: Laboratory Results - last 24 hr 05/06/24 12:09: POC Glucose 161 H 05/06/24 16:07: POC Glucose 132 H 05/06/24 22:34: POC Glucose 161 H 05/07/24 06:46: POC Glucose 182 H Physical Exam Const alert and no apparent distress Constitutional Narrative: Up in chair. Afebrile. On room air. No respiratory distress. No conversational dyspnea. Resp normal respiratory effort and no retractions Resp Narrative: Bibasilar crackles Cardio regular rate, regular rhythm, S1 normal heart sound and S2 normal heart sound Assessment & Plan Assessment/Plan (1) Fall: (2) Acute cystitis: PLAN: Plan Acute Metabolic Encephalopathy * likely 2/2 to post concussion. Patient appears stable at this time. UTI: * on CTX * h/o right hydronephrosis with right ureteral stent * UCx showing presumptive E. coli, bella-sensitive * Will discharge with nitrofurantoin Recent mechanical fall with posterior scalp laceration * CT the brain with no acute findings, CT cervical spine with no acute findings, * Would is well approximated with ED glue. * Wound appears to be intact. Patient did sustain some muscle tenderness throughout her paraspinal muscles post fall. Supportive management. * Patient had stepped in to have a depression in the driveway and fell backwards hitting her head. Patient had been notably feeling weak before that so that may have been precipitated by an underlying urinary tract infection. * PT OT evaluate and treat * CM spoke with family, interested in SNF. However, the patient does not want to go to a alf facility and is open to home health care. Case management discussed with the family. TEREZA * Unclear etiology but her creatinine was creeping upwards during the course of this hospitalization. * Patient did receive IV fluids on the and that her creatinine is improved today. No additional workup at this time. Chronic conditions: * Diabetes mellitus type II with chronic neuropathy: Hold oral home regimen, ADA diet, accu checks w/ ISS, continue chronic home gabapentin regimen. * Hypertension: BP upon presentation above goal however patient with recent fall and discomfort; however, not on any hypertensive regimen unfortunately potentially related with previous recent falls with hypotension but uncertain. Will continue to monitor and add back regimen if felt necessary. In the interim we will have IV hydralazine as needed. * Hyperlipidemia: We will continue patient on statin therapy. * Chronic Kidney Disease Stage III, * PAF/flutter: Status post previous ablation, not on any rate or rhythm agent but clarifying, holding Coumadin given recent fall, resume once appropriate. * History complete heart block: Status post pacemaker placement. * Obesity: Weight loss and lifestyle changes encouraged. * Chronic asthma with allergic rhinitis: We will temporally hold home inhalers in the interim placed on ATC budesonide therapy, PRN albuterol, HOB, IS parameters, continue patient home montelukast regimen. * Chronic thrombocytopenia, unclear specific etiology: Admission platelets from previous ED evaluation earlier in the day 128, similar to baseline, continue to trend. * RAMESH: CPAP nightly. DVT prophylaxis: Holding Coumadin given presentation, presentation INR 1.9, will repeat INR in a.m., maintain SCDs. CODE status: Full Code status.
[2024-05-07 08:06] LABS: Absolute Lymphocyte Count 0.71 X10^3/uL (0.83-4.51); Absolute Neutrophil Count 4.3 X10^3/uL (2.0-7.7); Basophil# 0.03 X10^3/uL; Basophil% 0.5 % (0-1); Eosinophil# 0.08 X10^3/uL; Eosinophils% 1.5 % (0-5); Hematocrit 32.7 % (37-47); Hemoglobin 10.7 g/dL (12.0-15.0); Lymphocyte # 0.71 X10^3/ul (0.83-4.51); Lymphocyte % 12.9 % (19-41); Mean Corp Hgb Conc 32.7 g/dL (32-36); Mean Corpuscular Volume 97.9 fL (81-99); Mean Platelet Vol. 10.4 fl (6.2-12.0); Monocyte# 0.33 X10^3/uL; NRBC Flagged by Analyzer 0 % (0-5); Neutrophil # 4.33 X10^3/uL (2.7-7.7); Neutrophil % 78.9 % (47-70); Platelet Count 116 K/mm3 (150-450); RBC Distribution Width CV 12.3 % (11.6-14.6); RBC Distribution Width SD 44.1 fl (35.1-43.9); Red Blood Count 3.34 M/mm3 (4.2-5.4); White Blood Count 5.5 K/mm3 (4.4-11.0)
[2024-05-07 08:11] VITALS: O2SAT 93
[2024-05-07] MEDS: Gabapentin 300 MG Capsule PO (08:24)
[2024-05-07] MEDS: Nystatin Powder 15gm Bottle 1 APPLIC TOPICAL (08:25)
[2024-05-07] MEDS: Tolterodine Tartrate 2 MG CAP.SA PO (08:25)
[2024-05-07] MEDS: Lidocaine 5% Patch 2 PATCH TOPICAL (08:25)
[2024-05-07] MEDS: Menthol/Lanolin/Calamine/Znox 113 GM Tube 1 APPLIC TOPICAL (08:26)
[2024-05-07 08:35] LABS: Anion Gap 5 (5-15); BUN 32 mg/dL (7-18); BUN/Creat Ratio 26.2 RATIO (10-20); Calcium,Total 8.5 mg/dL (8.5-10.1); Chloride 107 mmol/L (98-107); Creatinine, Serum 1.22 mg/dL (0.55-1.02); EST Glomerular Filtration Rate 45 mL/min (>60); Est Glom Filt Rate - Afr Amer 55 mL/min (>60); Estimated Creatinine Clearance 45.37 ml/min; Glucose 174 mg/dL (74-106); Potassium 4.1 mmol/L (3.5-5.1); Sodium Level 136 mmol/L (136-145)
[2024-05-07 08:38] VITALS: BP 120/64; PULSE 66; RESP 18; TEMP 36.6; O2SAT 93
[2024-05-07 10:11] LABS: International Normalized Ratio 1.9; Prothrombin Time (Protime)PT. 21.7 SECONDS (11.7-14.9)
--- NOTE | 2024-05-07 11:00 | DS.PCM_ITS ---
Providers Date of Admission: 05/04/24 Primary Care Physician: Dr. Ro Reed MD Reason For Visit: FALL, ENCEPHALOPATHY ?, UTI Diagnosis Discharge Diagnosis (1) Fall: Status: Acute Code(s): W19.XXXA - Unspecified fall, initial encounter (2) Acute cystitis: Status: Acute Code(s): N30.00 - Acute cystitis without hematuria Plan Acute Metabolic Encephalopathy * likely 2/2 to post concussion. Patient appears stable at this time. UTI: * on CTX * h/o right hydronephrosis with right ureteral stent * UCx showing presumptive E. coli, bella-sensitive * Will discharge with nitrofurantoin Recent mechanical fall with posterior scalp laceration * CT the brain with no acute findings, CT cervical spine with no acute findings, * Would is well approximated with ED glue. * Wound appears to be intact. Patient did sustain some muscle tenderness throughout her paraspinal muscles post fall. Supportive management. * Patient had stepped in to have a depression in the driveway and fell backwards hitting her head. Patient had been notably feeling weak before that so that may have been precipitated by an underlying urinary tract infection. * PT OT evaluate and treat * CM spoke with family, interested in SNF. However, the patient does not want to go to a [facility] facility and is open to home health care. Case management discussed with the family. TEREZA * Unclear etiology but her creatinine was creeping upwards during the course of this hospitalization. * Patient did receive IV fluids on the and that her creatinine is improved today. No additional workup at this time. Chronic conditions: * Diabetes mellitus type II with chronic neuropathy: Hold oral home regimen, ADA diet, accu checks w/ ISS, continue chronic home gabapentin regimen. * Hypertension: BP upon presentation above goal however patient with recent fall and discomfort; however, not on any hypertensive regimen unfortunately potentially related with previous recent falls with hypotension but uncertain. Will continue to monitor and add back regimen if felt necessary. In the interim we will have IV hydralazine as needed. * Hyperlipidemia: We will continue patient on statin therapy. * Chronic Kidney Disease Stage III, * PAF/flutter: Status post previous ablation, not on any rate or rhythm agent but clarifying, holding Coumadin given recent fall, resume once appropriate. * History complete heart block: Status post pacemaker placement. * Obesity: Weight loss and lifestyle changes encouraged. * Chronic asthma with allergic rhinitis: We will temporally hold home inhalers in the interim placed on ATC budesonide therapy, PRN albuterol, HOB, IS parameters, continue patient home montelukast regimen. * Chronic thrombocytopenia, unclear specific etiology: Admission platelets from previous ED evaluation earlier in the day 128, similar to baseline, continue to trend. * RAMESH: CPAP nightly. DVT prophylaxis: Holding Coumadin given presentation, presentation INR 1.9, will repeat INR in a.m., maintain SCDs. CODE status: Full Code status. Medications at Discharge Home Medications warfarin 5 mg tablet 5 mg PO SUMOTUWESA blood thinner 11/18/18 atorvastatin 10 mg tablet 10 mg PO QHS cholesterol 12/11/19 gabapentin 300 mg capsule 300 mg PO BREAKFAST nerve pain 08/04/22 gabapentin 300 mg capsule 600 mg PO QHS Neuropathy 08/04/22 warfarin 2.5 mg tablet (Jantoven) 2.5 mg PO THFR blood thinner 12/30/23 budesonide-formoterol HFA 160 mcg-4.5 mcg/actuation aerosol inhaler (Symbicort) 2 puff inhalation BID asthma #10.2 grams 01/20/24 albuterol sulfate 90 mcg/actuation aerosol inhaler 2 puff inhalation Q4H PRN shortness of breath or wheezing #8.5 grams 03/04/24 montelukast 10 mg tablet 10 mg PO QPM #30 tabs 03/04/24 cholecalciferol (vitamin D3) 50 mcg (2,000 unit) capsule 50 mcg PO DAILY 04/13/24 glimepiride 2 mg tablet 2 mg PO DAILY 04/13/24 magnesium oxide 250 mg PO DAILY SUPPLEMENT 04/13/24 mecobalamin (vitamin B12) 1,000 mcg chewable tablet 1,000 mcg PO DAILY 04/13/24 oxybutynin chloride 10 mg tablet,extended release 24 hr 10 mg PO DAILY 04/13/24 acetaminophen 500 mg tablet 1,000 mg (2 x 500 mg) PO Q8 PRN fever or pain #0 tabs 05/06/24 nitrofurantoin macrocrystal 100 mg capsule 100 mg PO BID 5 days #10 caps 05/06/24 Hospital Course Operations None Procedures None Summary of Care Provided Minutes Spent on Discharge: 33 Hospital Course: Patient fell in her driveway and struck her head. Patient had some surgical glue glue placed that was effective in sealing the laceration. Patient was found to have UTI that was presumptive pansensitive E. coli. Patient be discharged with course of nitrofurantoin. Patient did sustain some acute kidney injury while she was here but did receive his IV fluid and that seems to have resolved. Complicating her hospitalization was a family insisting on patient going to a [facility] facility though the patient was insistent on returning home. She was open to home health care. According the patient, I did get contentious with that she and her family members. They eventually were okay with patient going home with home care. Weight / BMI Weight Weight: 90.2 kg Body Mass Index (BMI) 30.1 ABG / Lab / Microbiology Data 05/07/24 07:21 05/07/24 07:21 Laboratory: Laboratory Results - last 24 hr 05/06/24 12:09: POC Glucose 161 H 05/06/24 16:07: POC Glucose 132 H 05/06/24 22:34: POC Glucose 161 H 05/07/24 06:46: POC Glucose 182 H 05/07/24 07:21: WBC 5.5, RBC 3.34 L, Hgb 10.7 L, Hct 32.7 L, MCV 97.9, MCH 32.0, MCHC 32.7, RDW Std Deviation 44.1 H, RDW Coeff of Jason 12.3, Plt Count 116 L, MPV 10.4, Immature Gran % (Auto) 0.200, Neut % (Auto) 78.9 H, Lymph % (Auto) 12.9 L, [place] % (Auto) 6.0, Eos % (Auto) 1.5, Baso % (Auto) 0.5, Absolute Neuts (auto) 4.3, Absolute Lymphs (auto) 0.71 L, Nucleated RBC % 0, PT 21.7 H, INR 1.9, Sodium 136, Potassium 4.1, Chloride 107, Carbon Dioxide 24.0, Anion Gap 5, BUN 32 H, Creatinine 1.22 H, Estim Creat Clear Calc 45.37, Est GFR (MDRD) Af Amer 55 L, Est GFR (MDRD) Non-Af 45 L, BUN/Creatinine Ratio 26.2 H, Glucose 174 H, Calcium 8.5 D/C Instructions Discharge Diet: No restrictions Meaningful Use Info Meaningful Use Meaningful Use Diagnoses (Choose all that apply): None applicable Ischemic Stroke Statin Dosing Therapy Reference: STATIN DOSE THERAPY REFERENCE: * Patients > 75 years receive moderate or high dose statin therapy. * Patients 75 years or YOUNGER should receive HIGH intensity statin dose unless contraindicated. You will be required to document reason for non-treatment if statin daily dose does not meet guidelines. HIGH DOSE STATIN THERAPY DAILY Atorvastatin > than or = to 40 mg Rosuvastatin > than or = to 20 mg Amlodipine + Atorvastatin > than or = to 2.5/40 mg Ezetimibe + Simvastatin 10/80 mg Simvastatin 80mg Discharge Plan Admission Admit Date/Time: 05/04/24 21:52 Primary Reason for Your Visit: Urinary tract infection Attending Provider: Farhat Bone Primary Care Provider: Ro Reed Consulting Providers: Kassi Fisher Instructions Additional Instructions / Restrictions: You are admitted for weakness that you likely sustained with a urinary tract infection which led you to fall which you sustained a small laceration on your scalp. The emergency room was able to with that back together with medical adhesive. You will be on antibiotics at home (nitrofurantoin). Take that till completion. You will be going home and home health care services will be out to your house to continue to work with you. Discharge Orders/Prescriptions Prescriptions: New acetaminophen 500 mg Tablet 1,000 mg PO Q8 PRN (Reason: fever or pain) Qty: 0 0RF nitrofurantoin macrocrystal 100 mg capsule 100 mg PO BID 5 Days Qty: 10 0RF Rx Instructions: must administer with a meal/food Continued albuterol sulfate 90 mcg/actuation HFA aerosol inhaler 2 puff INHALATION Q4H PRN (Reason: shortness of breath or wheezing) Qty: 8.5 6RF Rx Instructions: administer with spacer montelukast 10 mg tablet 10 mg PO QPM Qty: 30 3RF oxybutynin chloride 10 mg tablet extended release 24hr 10 mg PO DAILY Patient Comments: pt unsure if she is taking this med or not cholecalciferol (vitamin D3) 50 mcg (2,000 unit) capsule 50 mcg PO DAILY mecobalamin (vitamin B12) 1,000 mcg tablet,chewable 1,000 mcg PO DAILY glimepiride 2 mg tablet 2 mg PO DAILY warfarin 5 MG tablet 5 mg PO ELIZATUWESA Protocol: Dose Management Condition: Thursday Dose/Route: 5 mg Instruction: 1 x 5 mg tablet Condition: Thursday Dose/Route: 5 mg Instruction: 1 x 5 mg tablet Condition: Thursday Dose/Route: 2.5 mg Instruction: 1 x 2.5 mg tablet Condition: Thursday Dose/Route: 2.5 mg Instruction: 1 x 2.5 mg tablet Condition: Dose/Route: 2.5 mg Instruction: 1 x 2.5 mg tablet Condition: Thursday Dose/Route: 2.5 mg Instruction: 1 x 2.5 mg tablet Condition: Thursday Dose/Route: 5 mg Instruction: 1 x 5 mg tablet Protocol Text: Adjustment Start Date: Thursday04/13/24 INR Value: 3.6 INR Date: 04/13/24 Recheck Date: 04/27/24 atorvastatin 10 MG tablet 10 mg PO QHS gabapentin 300 mg capsule 600 mg PO QHS Patient Comments: Take 2 capsules by mouth daily at bedtime AND 1 capsule every morning. gabapentin 300 mg capsule 300 mg PO BREAKFAST Patient Comments: Take 2 capsules by mouth daily at bedtime AND 1 capsule every morning. Rx Instructions: 300 mg orally; warfarin [Octtoven] 2.5 mg tablet 2.5 mg PO THFR Protocol: Dose Management Condition: Thursday Dose/Route: 5 mg Instruction: 1 x 5 mg tablet Condition: Thursday Dose/Route: 5 mg Instruction: 1 x 5 mg tablet Condition: Thursday Dose/Route: 2.5 mg Instruction: 1 x 2.5 mg tablet Condition: Thursday Dose/Route: 2.5 mg Instruction: 1 x 2.5 mg tablet Condition: Dose/Route: 2.5 mg Instruction: 1 x 2.5 mg tablet Condition: Thursday Dose/Route: 2.5 mg Instruction: 1 x 2.5 mg tablet Condition: Thursday Dose/Route: 5 mg Instruction: 1 x 5 mg tablet Protocol Text: Adjustment Start Date: Thursday04/13/24 INR Value: 3.6 INR Date: 04/13/24 Recheck Date: 04/27/24 magnesium oxide 400 mg magnesium tablet 250 mg PO DAILY Symbicort 160-4.5 mcg/actuation HFA aerosol inhaler 2 puff INHALATION BID Qty: 10.2 11RF Discontinued metformin 500 mg tablet extended release 24 hr 500 mg PO BID Referrals / Follow Up: Ro Reed MD [Primary Care Provider] - Disposition Disposition (needs filled in before D/C Order can be placed): Home Health Service Charges/Coding Visit Charges Inpatient E&M: 06072 Disch Hosp >30min
[2024-05-07 11:52] LABS: Bedside Glucose 116 mg/dL (74-106)
[2024-05-07 13:41] VITALS: BP 149/68; PULSE 61; RESP 18; TEMP 36.8; O2SAT 96
== END 2024-05-07 14:36 | disposition home health service (06) ==
LOC: ED 21:58 → MS3 22:34
PROVIDERS: Admitting Provider Family Medicine; Emergency Provider Emergency Medicine; PCP Internal Medicine
DX: N30.00 Acute cystitis without hematuria (principal); I27.21 Secondary pulmonary arterial hypertension; I48.0 Paroxysmal atrial fibrillation; E11.22 Type 2 diabetes mellitus with diabetic chronic kidney disease; E11.40 Type 2 diabetes mellitus with diabetic neuropathy, unspecified; N18.30 Chronic kidney disease, stage 3 unspecified; G93.41 Metabolic encephalopathy; J45.909 Unspecified asthma, uncomplicated; I12.9 Hypertensive chronic kidney disease with stage 1 through stage 4 chronic kidney disease, or unspecified chronic kidney disease; G47.33 Obstructive sleep apnea (adult) (pediatric); E78.5 Hyperlipidemia, unspecified; Z79.84 Long term (current) use of oral hypoglycemic drugs; Z79.51 Long term (current) use of inhaled steroids; Z95.0 Presence of cardiac pacemaker; N17.9 Acute kidney failure, unspecified; Z86.16 Personal history of COVID-19; S20.211A Contusion of right front wall of thorax, initial encounter; S16.1XXA Strain of muscle, fascia and tendon at neck level, initial encounter; S01.01XA Laceration without foreign body of scalp, initial encounter; S39.012A Strain of muscle, fascia and tendon of lower back, initial encounter; S00.03XA Contusion of scalp, initial encounter; W17.2XXA Fall into hole, initial encounter; Y92.89 Other specified places as the place of occurrence of the external cause; S29.012A Strain of muscle and tendon of back wall of thorax, initial encounter; Z79.01 Long term (current) use of anticoagulants; Z79.899 Other long term (current) drug therapy; B96.20 Unspecified Escherichia coli [E. coli] as the cause of diseases classified elsewhere
CPT/HCPCS: 12001; 36415; 70450; 71045; 71250; 72125; 72131; 80048; 80053; 81001; 82962; 85025; 85610; 87086; 94640; 94668; 96361; 96365; 96366; 96374; 96375; 96376; 97116; 97162; 97166; 97530; 97535; 99221; 99285; J7030; J7050; P9612; A4216; G0378; J2405

== ENCOUNTER 2024-06-01 17:12 | Emergency (ER) | payer MEDICARE, SELFPAY ==
[2024-06-01 17:13] VITALS: BP 130/64; PULSE 80; RESP 16; TEMP 36.1; O2SAT 100; BMI 28.8
--- NOTE | 2024-06-01 17:20 | ED.VIS.FEGU ---
HPI HPI - Female History of Present Illness Chief Complaint: Complaint PFSH [facility] Medical History Wears glasses Wears dentures Post-menopausal Sore on leg Arthritis Dietary restriction CPAP (continuous positive airway pressure) dependence Non-smoker Shortness of breath on exertion Cardiology follow-up encounter History of stress test History of echocardiogram Ureteral mass Hydronephrosis, right Fracture of left elbow History of complete heart block Cervical strain, acute COVID-19 Essential hypertension Hyperlipidemia RAMESH (obstructive sleep apnea) Asthma DDD (degenerative disc disease) Shoulder dislocation Contact dermatitis and other eczema Allergic rhinitis 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 Obesity Diabetes mellitus Hypersomnia Other secondary pulmonary hypertension BMI 33.0-33.9,adult 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 Atrial fibrillation Home Medications ?Medication ?Instructions ?Recorded ?Last Taken ?Type warfarin 5 mg tablet 5 mg PO SUMOTUWESA blood thinner 11/18/18 05/04/24 History atorvastatin 10 mg tablet 10 mg PO QHS cholesterol 12/11/19 05/03/24 History gabapentin 300 mg capsule 300 mg PO BREAKFAST nerve pain 08/04/22 05/04/24 History gabapentin 300 mg capsule 600 mg PO QHS Neuropathy 08/04/22 05/03/24 History warfarin 2.5 mg tablet (Jantoven) 2.5 mg PO THFR blood thinner 12/30/23 01/16/24 History budesonide-formoterol HFA 160 2 puff inhalation BID asthma #10.2 01/20/24 05/04/24 Rx mcg-4.5 mcg/actuation aerosol grams inhaler (Symbicort) albuterol sulfate 90 mcg/actuation 2 puff inhalation Q4H PRN 03/04/24 Unknown Rx aerosol inhaler shortness of breath or wheezing #8.5 grams montelukast 10 mg tablet 10 mg PO QPM #30 tabs 03/04/24 05/04/24 Rx cholecalciferol (vitamin D3) 50 50 mcg PO DAILY 04/13/24 05/04/24 History mcg (2,000 unit) capsule glimepiride 2 mg tablet 2 mg PO DAILY 04/13/24 05/04/24 History magnesium oxide 250 mg PO DAILY SUPPLEMENT 04/13/24 05/04/24 History mecobalamin (vitamin B12) 1,000 1,000 mcg PO DAILY 04/13/24 05/04/24 History mcg chewable tablet oxybutynin chloride 10 mg 10 mg PO DAILY 04/13/24 Unknown History tablet,extended release 24 hr acetaminophen 500 mg tablet 1,000 mg (2 x 500 mg) PO Q8 PRN 05/06/24 Unknown Rx fever or pain #0 tabs nitrofurantoin macrocrystal 100 mg 100 mg PO BID 5 days #10 caps 05/06/24 Unknown Rx capsule Allergy/AdvReac Type Severity Reaction Status Date / Time amoxicillin Allergy Severe Hives Verified 06/01/24 17:13 aspirin Allergy Severe Hives, SOB Verified 06/01/24 17:13 Sulfa (Sulfonamide Allergy Severe Hives Verified 06/01/24 17:13 Antibiotics) Family History Mother Diabetes Father CAD (coronary artery disease) Sister Lung cancer Son Kidney stone Surgical History History of cystoscopy Hx of right cataract extraction Hx of left cataract extraction Presence of permanent cardiac pacemaker (04/01/19) History of kidney surgery History of appendectomy Social History household members: none housing: house number of children: 3 current occupational status: retired Smoking Status: Never smoker alcohol intake: never substance use type: does not use what type of physical activity do you participate in: none do you feel safe at home: Yes EXAM Physical Exam Const Vital Signs: 06/01/24 17:13 06/01/24 19:12 Temperature 96.9 F L Temperature Source Temporal Pulse Rate 80 60 Respiratory Rate 16 16 Blood Pressure 130/64 H 132/63 H Blood Pressure Mean 86 86 Pulse Ox 100 97 Oxygen Delivery Method Room Air Room Air MDM MDM MDM Narrative Medical decision making narrative: HISTORY OF PRESENT ILLNESS: 79-year-old female with a past medical history of HTN, HLD, DM2, atrial flutter, pulmonary hypertension, pacemaker, asthma who presents with concern for UTI. She is accompanied by her family. They state patient's not been drinking. Her home health nurse noted she was being more confused and hallucinating. Patient denies any ED symptoms. States he is not confused. States he feels fine and has no symptomatology. States her urine has been a bit darker than usual and she has not been drinking much water as she should. Denies nausea or vomiting. Denies diarrhea. Has abdominal pain. Denies chest pain, SOB. Denies head trauma. No headaches. Denies focal weakness REVIEW OF SYSTEMS: Pertinent positives: Dehydration, loose Nations Pertinent negatives: As per HPI PHYSICAL EXAM: Nursing triage notes reviewed, Vital signs reviewed Constitutional: please see [facility] HENT: MMM Eyes: Pupils equal round and reactive to light, Extraocular muscles intact Neck: No stridor, no JVD, full neck ROM Lungs: Clear to auscultation, No wheezing or rales. No increased work of breathing, no conversational dyspnea, no accessory muscle use, no nasal flaring. No respiratory distress noted Heart: Regular rate and rhythm, No murmurs, No rubs and No gallops, 2+ distal pulses (radial, femoral, posterior tibial) in all extremities Abdomen: Soft, there is no tenderness, rigidity, rebound or guarding, no obvious peritoneal signs, no palpable pulsatile abdominal masses, no auscultated abdominal bruit : No CVAT Extremities: No edema Neuro: Alert and orient x 3 (at baseline) no focal neurological deficits, cranial nerves II through XII intact, 5/5 strength in all extremities. Intact sensation to light touch in all extremities, 2+ reflexes bilateral patella tendons. . No ataxia. Skin: No rash or lesions noted MEDICAL DECISION MAKING: Chief Complaint: Dehydration External records reviewed: Reviewed prior ED records Factors affecting care: Hyperlipidemia, on warfarin, type 2 diabetes Social determinants of health: none History obtained from others: The patient's son Consults: none [facility] Narrative: Patient was initially hemodynamically stable, afebrile and nontoxic-appearing. Exam without focal deficit. Patient is alert and orient x 3. Abdomen soft nontender no focal cardiopulmonary maladies. I considered the following differential diagnosis: Dehydration, electrolyte disturbance, kidney failure, ACS, arrhythmia, anemia, intracranial abnormality such as bleed or mass I obtained a broad lab and imaging workup to further elucidate etiology of the patient complaint. ALL IMAGES (IF OBTAINED) HAVE BEEN PERSONALLY REVIEWED AND INTERPRETED BY MYSELF. I have personally reviewed the patient's chest x-ray. Chest x-ray is unremarkable for pulmonary edema, pneumothorax, pneumonia or focal cardiopulmonary abnormality. EKG with ventricular paced rhythm, no obvious STEMI, similar morphology to prior EKG from January 2024 CBC without leukocytosis, severe anemia, no thrombocytopenia. BMP without evidence of significant electrolyte abnormalities, no anion gap, no acute kidney injury. CT scan of the head is negative for acute intracranial abnormality INR is therapeutic Urinalysis shows no evidence of urinary inflammation suggestive of UTI (whether leukocyte esterase patient has no symptoms such have a low suspicion for UTI) The synthesis of the patient's history, physical exam, lab and imaging studies suggest no acute life or limb threatening etiology. Upon reassessment patient remained alert and orient x 3, there is no signs of confusion or altered mental status. Patient felt symptomatically better after IV fluids patient's blood discharged home with instructions to continue hydrating by mouth. The patient and/or family, caregivers express understanding. The patient and/or family, caregivers agrees with the plan. Shared decision making: I will have a discussion with the patient and or visitors regarding risk/benefits of further testing or admission. They will be made aware of of the risk/benefits inherent in this decision they will be given the opportunity to voice understanding. Total critical care time today provided was at least 0 minutes. This excludes separately billable procedures. Critical care time (if documented) is secondary to the patient having high probability of clinically significant/life threatening deterioration in the patient's condition which required my urgent intervention. Impression: 1. Dehydration 2. Transient alteration awareness Dispo: discharge home This note was generated with [employer] dictation software. It may contain incorrect words, spelling, and punctuation that were not noted in review of the chart prior to signing. Lab Data Labs: Laboratory Results - last 24 hr 06/01/24 06/01/24 06/01/24 18:15 19:07 19:30 WBC 5.4 RBC 4.01 L Hgb 12.7 Hct 38.8 MCV 96.8 MCH 31.7 MCHC 32.7 RDW Std Deviation 45.2 H RDW Coeff of Jason 12.7 Plt Count 136 L MPV 9.9 PT 25.3 H INR 2.3 Sodium 139 Potassium 3.5 Chloride 107 Carbon Dioxide 28.0 Anion Gap 4 L BUN 16 Creatinine 1.06 H Estim Creat Clear Calc 51.09 Est GFR (MDRD) Af Amer 65 Est GFR (MDRD) Non-Af 53 L BUN/Creatinine Ratio 15.1 Glucose 147 H Calcium 9.5 Urine Color Yellow Urine Clarity Clear Urine pH 5.0 Ur Specific Castell 1.020 Urine Protein 30 H Urine Glucose (UA) Normal Urine Ketones 5 H Urine Occult Blood Negative Urine Nitrite Negative Urine Bilirubin Negative Urine Urobilinogen Normal Ur Leukocyte Esterase 100 H Radiography Diagnostic Testing: Clinical Impression(s) from Imaging Studies Brain CT 06/01/24 17:42 IMPRESSION: No acute disease Electronically Signed: Daron Walker MD at 18:50 EDT Reading Location ID and State: [address] [place] [address] Tel , Service support , Chest X-Ray 06/01/24 17:55 IMPRESSION: No acute disease. COPD. Electronically Signed: Daron Walker MD at 18:29 EDT Reading Location ID and State: [place] / [place] Tel , Service support , Discharge Plan Triage Chief Complaint: Complaint ED Provider: Miguel Perera Dx/Rx/DC Orders Prescriptions: No Action albuterol sulfate 90 mcg/actuation HFA aerosol inhaler 2 puff INHALATION Q4H PRN (Reason: shortness of breath or wheezing) Qty: 8.5 6RF Rx Instructions: administer with spacer montelukast 10 mg tablet 10 mg PO QPM Qty: 30 3RF oxybutynin chloride 10 mg tablet extended release 24hr 10 mg PO DAILY Patient Comments: pt unsure if she is taking this med or not cholecalciferol (vitamin D3) 50 mcg (2,000 unit) capsule 50 mcg PO DAILY mecobalamin (vitamin B12) 1,000 mcg tablet,chewable 1,000 mcg PO DAILY glimepiride 2 mg tablet 2 mg PO DAILY warfarin 5 MG tablet 5 mg PO ONEL Protocol: Dose Management Condition: Thursday Dose/Route: 5 mg Instruction: 1 x 5 mg tablet Condition: Thursday Dose/Route: 5 mg Instruction: 1 x 5 mg tablet Condition: Thursday Dose/Route: 5 mg Instruction: 1 x 5 mg tablet Condition: Thursday Dose/Route: 5 mg Instruction: 1 x 5 mg tablet Condition: Dose/Route: 5 mg Instruction: 1 x 5 mg tablet Condition: Thursday Dose/Route: 5 mg Instruction: 1 x 5 mg tablet Condition: Thursday Dose/Route: 5 mg Instruction: 1 x 5 mg tablet Protocol Text: Adjustment Start Date: Thursday06/01/24 INR Value: 1.9 INR Date: 06/01/24 Recheck Date: 06/08/24 atorvastatin 10 MG tablet 10 mg PO QHS gabapentin 300 mg capsule 600 mg PO QHS Patient Comments: Take 2 capsules by mouth daily at bedtime AND 1 capsule every morning. gabapentin 300 mg capsule 300 mg PO BREAKFAST Patient Comments: Take 2 capsules by mouth daily at bedtime AND 1 capsule every morning. Rx Instructions: 300 mg orally; warfarin [] 2.5 mg tablet 2.5 mg PO THFR Protocol: Dose Management Condition: Thursday Dose/Route: 5 mg Instruction: 1 x 5 mg tablet Condition: Thursday Dose/Route: 5 mg Instruction: 1 x 5 mg tablet Condition: Thursday Dose/Route: 5 mg Instruction: 1 x 5 mg tablet Condition: Thursday Dose/Route: 5 mg Instruction: 1 x 5 mg tablet Condition: Dose/Route: 5 mg Instruction: 1 x 5 mg tablet Condition: Thursday Dose/Route: 5 mg Instruction: 1 x 5 mg tablet Condition: Thursday Dose/Route: 5 mg Instruction: 1 x 5 mg tablet Protocol Text: Adjustment Start Date: Thursday06/01/24 INR Value: 1.9 INR Date: 06/01/24 Recheck Date: 06/08/24 magnesium oxide 400 mg magnesium tablet 250 mg PO DAILY acetaminophen 500 mg Tablet 1,000 mg PO Q8 PRN (Reason: fever or pain) Qty: 0 0RF nitrofurantoin macrocrystal 100 mg capsule 100 mg PO BID 5 Days Qty: 10 0RF Rx Instructions: must administer with a meal/food Symbicort 160-4.5 mcg/actuation HFA aerosol inhaler 2 puff INHALATION BID Qty: 10.2 11RF Primary Care Provider: Ro Reed Referrals: Ro Reed MD [Primary Care Provider] - Print Language: Portuguese
--- NOTE | 2024-06-01 17:42 | EKG12_ITS ---
Test Reason : DIZZINESS Blood Pressure : / mmHG Vent. Rate : 068 BPM Atrial Rate : 394 BPM P-R Int : 000 ms QRS Dur : 048 ms QT Int : 406 ms P-R-T Axes : 000 050 055 degrees QTc Int : 431 ms Ventricular-paced rhythm Abnormal ECG When compared with ECG of 29-JAN-2024 13:54, No significant change was found Confirmed by ALEXANDRA NICOLE, TRINH ([id number]), editor city MAURY WOODARD ([id number]) on 06/07/2024 11:32:48 AM Referred By: Confirmed By:TRINH MORRIS MD
--- NOTE | 2024-06-01 17:42 | CT_ITS ---
STUDY: CT BRAIN WITHOUT CONTRAST REASON FOR EXAM: Female, 79 years old. Confusion RADIATION DOSAGE (If Supplied By Facility): CTDIvol = ( 44.99 ) mGy, DLP = ( 798.92 ) mGycm TECHNIQUE: Transaxial CT imaging of the brain was performed without administration of intravenous contrast material. Individualized dose optimization techniques were used for this CT. The protocol utilizes one or more of the following dose reduction techniques: automated exposure control, adjustment of mA and/or kV according to patient size,and/or use of iterative reconstruction technique. COMPARISON: CT brain May 04, 2024 FINDINGS: Small subcutaneous nodule left posterior parietal scalp unchanged. Normal calvarium. There is mild cerebral atrophy with widening of the extra-axial spaces and ventricular dilatation. Normal white matter tracts of the cerebral hemispheres. Normal basal ganglia and thalami. Normal brainstem. Normal cerebellum. Intracranial atherosclerosis. There is no intracranial hemorrhage. There are no findings of an acute ischemic infarction. Normal visualized paranasal sinuses. CT/Brain/Head without Contrast IMPRESSION: No acute disease Electronically Signed: Daron Walker MD at 18:50 EDT ,
--- NOTE | 2024-06-01 17:55 | RAD_ITS ---
STUDY: X-RAY CHEST REASON FOR EXAM: Female, 79 years old. Confusion TECHNIQUE: Single frontal view of the chest. COMPARISON: May 04, 2024 FINDINGS: Bipolar pacer on the left unchanged. Lungs are hyperaerated. The lungs are clear and expanded. There is no demonstrated pleural abnormality. Normal size heart. Normal mediastinum and mahendra. Normal visualized pulmonary arteries. Normal visualized aortic arch and descending thoracic aorta. Normal visualized thoracic spine. Normal visualized ribs, clavicles, and shoulders. There is no demonstrated abnormality of the visualized soft tissue structures of the upper abdomen. RAD/Chest 1 View (Portable) IMPRESSION: No acute disease. COPD. Electronically Signed: Daron Walker MD at 18:29 EDT ,
[2024-06-01] MEDS: 0.9% Normal Saline (1000mL) 1,000 ML 999 ML IV (18:14)
[2024-06-01 18:23] LABS: Hematocrit 38.8 % (37-47); Hemoglobin 12.7 g/dL (12.0-15.0); Mean Corp Hgb Conc 32.7 g/dL (32-36); Mean Corpuscular Hgb 31.7 pg (27.0-32.0); Mean Corpuscular Volume 96.8 fL (81-99); Mean Platelet Vol. 9.9 fl (6.2-12.0); Platelet Count 136 K/mm3 (150-450); RBC Distribution Width CV 12.7 % (11.6-14.6); RBC Distribution Width SD 45.2 fl (35.1-43.9); Red Blood Count 4.01 M/mm3 (4.2-5.4); White Blood Count 5.4 K/mm3 (4.4-11.0)
[2024-06-01 18:35] LABS: Anion Gap 4 (5-15); BUN 16 mg/dL (7-18); BUN/Creat Ratio 15.1 RATIO (10-20); Calcium,Total 9.5 mg/dL (8.5-10.1); Chloride 107 mmol/L (98-107); Creatinine, Serum 1.06 mg/dL (0.55-1.02); EST Glomerular Filtration Rate 53 mL/min (>60); Est Glom Filt Rate - Afr Amer 65 mL/min (>60); Estimated Creatinine Clearance 51.09 ml/min; Glucose 147 mg/dL (74-106); Potassium 3.5 mmol/L (3.5-5.1); Sodium Level 139 mmol/L (136-145)
[2024-06-01 19:12] VITALS: BP 132/63; PULSE 60; RESP 16; O2SAT 97
[2024-06-01 19:33] LABS: International Normalized Ratio 2.3; Prothrombin Time (Protime)PT. 25.3 SECONDS (11.7-14.9)
[2024-06-01 19:48] LABS: Mucous, Urine 0 SEEN /hpf (<or=2+); Squamous Epithelial Cells - UA 0 SEEN /hpf (5-10)
[2024-06-01 19:49] LABS: Color, Urine Yellow (Yellow); Glucose, Dipstick Normal (Normal); Ketone-Dipstick 5 mg/dl (Negative); Leukocyte Esterase-Dipstick 100 /ul (Negative); Nitrite-Dipstick Negative (Negative); Occult Blood-Urine Negative /ul (Negative); Protein-Dipstick 30 mg/dl (Negative); Urine Bilirubin Dipstick Negative (Negative); Urine Clarity Clear (Clear); Urine Urobilinogen Normal (Normal)
[2024-06-01 20:08] VITALS: BP 119/60; PULSE 77; RESP 24; TEMP 36.6; O2SAT 99
[2024-06-01 20:11] LABS: Bacteria 1+ /hpf (None Seen); Red Blood Cells-Urine 0-5 SEEN /hpf (0-5); White Blood Cells 0-5 SEEN /hpf (0-5)
== END 2024-06-01 20:14 | disposition home or self-care (01) ==
PROVIDERS: Emergency Provider Emergency Medicine; PCP Internal Medicine; Visit Provider Emergency Medicine
DX: E86.0 Dehydration (principal); I48.91 Unspecified atrial fibrillation; E11.40 Type 2 diabetes mellitus with diabetic neuropathy, unspecified; I10 Essential (primary) hypertension; E78.5 Hyperlipidemia, unspecified; Z79.84 Long term (current) use of oral hypoglycemic drugs; Z79.899 Other long term (current) drug therapy; Z86.16 Personal history of COVID-19
CPT/HCPCS: 70450; 71045; 80048; 81001; 85027; 85610; 93005; 96360; 96361; 99284; A4216

== ENCOUNTER → 2024-06-10 | Outpatient (CLI) | payer MEDICARE, SELFPAY ==
--- NOTE | 2024-06-10 11:18 | RAD_ITS ---
STUDY: X-RAY CHEST REASON FOR EXAM: Female, 79 years old. Degenerative change. TECHNIQUE: Frontal and lateral views of the chest. COMPARISON: June 01, 2024 FINDINGS: Stable hyperinflation. There is no demonstrated pleural abnormality. Mild cardiomegaly unchanged. Stable dual lead cardiac pacer. Normal mediastinum and mahendra. Normal visualized pulmonary arteries. Aortic tortuosity unchanged. Thoracic osteopenia with diffuse spondylosis unchanged. Normal visualized ribs, clavicles, and shoulders. No abnormality of the visualized soft tissue structures of the upper abdomen. RAD/Chest PA and Lateral IMPRESSION: Stable chest with no acute or active cardiopulmonary disease. Electronically Signed: Kenrick Horvath MD at 13:45 EDT ,
[2024-06-10 11:44] LABS: Mucous, Urine 0 SEEN /hpf (<or=2+); Red Blood Cells-Urine 0 SEEN /hpf (0-5)
[2024-06-10 12:28] LABS: Hematocrit 39.4 % (37-47); Hemoglobin 12.9 g/dL (12.0-15.0); Mean Corp Hgb Conc 32.7 g/dL (32-36); Mean Corpuscular Hgb 31.9 pg (27.0-32.0); Mean Corpuscular Volume 97.5 fL (81-99); Mean Platelet Vol. 10.1 fl (6.2-12.0); Platelet Count 134 K/mm3 (150-450); RBC Distribution Width CV 12.3 % (11.6-14.6); RBC Distribution Width SD 43.9 fl (35.1-43.9); Red Blood Count 4.04 M/mm3 (4.2-5.4); White Blood Count 5.2 K/mm3 (4.4-11.0)
[2024-06-10 12:31] LABS: International Normalized Ratio 3.7; Prothrombin Time (Protime)PT. 36.2 SECONDS (11.7-14.9)
[2024-06-10 12:49] LABS: Anion Gap 8 (5-15); BUN 14 mg/dL (7-18); BUN/Creat Ratio 14.8 RATIO (10-20); Calcium,Total 9.3 mg/dL (8.5-10.1); Chloride 106 mmol/L (98-107); Creatinine, Serum 0.95 mg/dL (0.55-1.02); EST Glomerular Filtration Rate 61 mL/min (>60); Est Glom Filt Rate - Afr Amer 74 mL/min (>60); Glucose 89 mg/dL (74-106); Potassium 3.6 mmol/L (3.5-5.1); Sodium Level 139 mmol/L (136-145)
[2024-06-10 14:27] LABS: Color, Urine Yellow (Yellow); Glucose, Dipstick Normal (Normal); Ketone-Dipstick Negative (Negative); Leukocyte Esterase-Dipstick 500 /ul (Negative); Nitrite-Dipstick Negative (Negative); Occult Blood-Urine Negative /ul (Negative); Protein-Dipstick Negative (Negative); Urine Bilirubin Dipstick Negative (Negative); Urine Clarity Clear (Clear); Urine Urobilinogen Normal (Normal)
[2024-06-10 15:11] LABS: Bacteria 3+ /hpf (None Seen); Hyaline Cast 0-5 SEEN /lpf (0-5); Squamous Epithelial Cells - UA 0-5 SEEN /hpf (5-10); White Blood Cells 0-5 SEEN /hpf (0-5)
== END | disposition home or self-care (01) ==
LOC: RAD 11:15
PROVIDERS: PCP Internal Medicine; Referring Provider Internal Medicine Cardiovascular Disease; Visit Provider Internal Medicine Cardiovascular Disease
DX: Z95.0 Presence of cardiac pacemaker (principal); Z98.890 Other specified postprocedural states; Z86.79 Personal history of other diseases of the circulatory system
CPT/HCPCS: 36415; 71046; 80048; 81001; 85027; 85610

== ENCOUNTER 2024-06-12 14:08 | Emergency (ER) | payer MEDICARE, SELFPAY ==
[2024-06-12 14:10] VITALS: BP 159/121; PULSE 82; RESP 18; TEMP 36.5; O2SAT 97
--- NOTE | 2024-06-12 14:25 | CT_ITS ---
STUDY: CT LUMBAR SPINE WITHOUT CONTRAST REASON FOR EXAM: Female, 79 years old. pain TECHNIQUE: The patient was scanned in a multi detector CT scanner. High resolution transaxial imaging was performed. Images were obtained from T12 to S1. Sagittal and coronal images were reconstructed. Individualized dose optimization techniques were used for this CT. COMPARISON: None FINDINGS: Normal lumbar lordosis. There is no substantial scoliosis. Normal vertebrae of the lumbar spine. L1-2: There is bilateral facet arthropathy. Loss of intervertebral disc height. There is endplate spondylosis of the vertebral body. Unremarkable central canal. Unremarkable intervertebral neuroforamina. L2-3: There is bilateral facet arthropathy. Loss of intervertebral disc height. There is endplate spondylosis of the vertebral body. Posterior disc bulge. This is causing severe narrowing of the central canal. Unremarkable intervertebral neuroforamina. L3-4: There is bilateral facet arthropathy. Loss of intervertebral disc height. There is endplate spondylosis of the vertebral body. Posterior disc bulge. This is causing severe narrowing of the central canal. Unremarkable intervertebral neuroforamina. L4-5: There is bilateral facet arthropathy. Loss of intervertebral disc height. There is endplate spondylosis of the vertebral body. Posterior disc bulge. This is causing severe narrowing of the central canal. Bilateral narrowing of the intervertebral neuroforamina. L5-S1: There is bilateral facet arthropathy. Loss of intervertebral disc height. There is endplate spondylosis of the vertebral body. Unremarkable central canal. Unremarkable intervertebral neuroforamina. Normal visualized paraspinous soft tissue structures. CT/Spine Lumbar without Contrast IMPRESSION: (NOT LISTED IN ORDER OF SIGNIFICANCE) Multilevel degenerative changes, as described above. Bilateral neural foraminal stenosis at L4-5. Electronically Signed: Tavo Schilling MD at 15:45 EDT Reading Location ID and State: [facility] / [place] , Service support ,
--- NOTE | 2024-06-12 14:25 | CT_ITS ---
STUDY: CT THORACIC SPINE WITHOUT CONTRAST REASON FOR EXAM: Female, 79 years old. pain TECHNIQUE: The patient was scanned in a multi detector CT scanner. High resolution imaging was performed. Images were obtained from T1 to T12. Sagittal and coronal images were reconstructed. Individualized dose optimization techniques were used for this CT. COMPARISON: None. FINDINGS: Normal visualized cervical spine. There are coronary arterial calcifications. Thoracic arterial calcifications. Normal kyphosis of the thoracic spine. There is no substantial scoliosis. Normal thoracic vertebrae and endplates. Normal disc spaces heights. Partially visualized severe right hydronephrosis. CT/Spine Thoracic without Contras IMPRESSION: (NOT LISTED IN ORDER OF SIGNIFICANCE) There are degenerative changes as noted above. Partially visualized severe right hydronephrosis. Electronically Signed: Tavo Schilling MD at 15:42 EDT ,
--- NOTE | 2024-06-12 14:29 | EDS_ITS ---
HPI <WINNIE Gibson - Last Filed: 06/12/24 18:02> History of Present Illness Chief Complaint: Back Narrative Narrative: Patient is a 79-year-old female with history of a pacemaker, hyperlipidemia, diabetes, patient is on warfarin who presents to the emergency department for acute on chronic back pain. Patient states the back pain is from her left-sided thoracic spine going down to her lower lumbar spine. She denies any bowel or bladder incontinence. She has been dealing with this for multiple months. She does have a scheduled appointment with pain management here. Patient does get Percocet from her PCP, however she states this is not helping as much as it used to. She states the pain was worse today, is here for evaluation. She did have a workup 2 days ago secondary to presurgical testing for replacing the pacemaker battery. She did have a UTI which they placed on Macrobid. Patient has no urinary symptoms, fever or chills. PFSH <WINNIE Gibson - Last Filed: 06/12/24 18:02> [facility] Medical History History of complete heart block Other intervertebral disc degeneration, lumbar region Low back pain History of fall Non-pressure chronic ulcer of other part of left foot with fat layer exposed Pain in left foot Cardiac murmur Left knee sprain Falls Abnormal EKG Ulcer of right lower extremity with fat layer exposed Atrial flutter Obesity Pulmonary hypertension Subtherapeutic international normalized ratio (INR) Hyperlipidemia Type 2 diabetes mellitus Wears glasses Wears dentures Post-menopausal Sore on leg Arthritis Dietary restriction CPAP (continuous positive airway pressure) dependence Non-smoker Shortness of breath on exertion Cardiology follow-up encounter History of stress test History of echocardiogram Ureteral mass Hydronephrosis, right Fracture of left elbow Cervical strain, acute COVID-19 Essential hypertension Hyperlipidemia RAMESH (obstructive sleep apnea) Asthma DDD (degenerative disc disease) Shoulder dislocation Contact dermatitis and other eczema Allergic rhinitis 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 Obesity Diabetes mellitus Hypersomnia Other secondary pulmonary hypertension BMI 33.0-33.9,adult Hx of bladder infections retirement (current) use of anticoagulants Atrial fibrillation Home Medications ?Medication ?Instructions ?Recorded ?Last Taken ?Type warfarin 5 mg tablet 5 mg PO SUMOTUWESA blood thinner 11/18/18 05/04/24 History atorvastatin 10 mg tablet 10 mg PO QHS cholesterol 12/11/19 05/03/24 History gabapentin 300 mg capsule 300 mg PO BREAKFAST nerve pain 08/04/22 05/04/24 History gabapentin 300 mg capsule 600 mg PO QHS Neuropathy 08/04/22 05/03/24 History warfarin 2.5 mg tablet (Jantoven) 2.5 mg PO THFR blood thinner 12/30/23 01/16/24 History budesonide-formoterol HFA 160 2 puff inhalation BID asthma #10.2 01/20/24 05/04/24 Rx mcg-4.5 mcg/actuation aerosol grams inhaler (Symbicort) albuterol sulfate 90 mcg/actuation 2 puff inhalation Q4H PRN 03/04/24 Unknown Rx aerosol inhaler shortness of breath or wheezing #8.5 grams montelukast 10 mg tablet 10 mg PO QPM #30 tabs 03/04/24 05/04/24 Rx cholecalciferol (vitamin D3) 50 50 mcg PO DAILY 04/13/24 05/04/24 History mcg (2,000 unit) capsule magnesium oxide 250 mg PO DAILY SUPPLEMENT 04/13/24 05/04/24 History mecobalamin (vitamin B12) 1,000 1,000 mcg PO DAILY 04/13/24 05/04/24 History mcg chewable tablet oxybutynin chloride 10 mg 10 mg PO DAILY 04/13/24 Unknown History tablet,extended release 24 hr acetaminophen 500 mg tablet 1,000 mg (2 x 500 mg) PO Q8 PRN 05/06/24 Unknown Rx fever or pain #0 tabs cyclobenzaprine 5 mg tablet 10 mg PO BID 06/10/24 Unknown History glimepiride 2 mg tablet 2 mg PO BID 06/10/24 Unknown History nitrofurantoin 100 mg PO Q12H 7 days #14 caps 06/10/24 Unknown Rx monohydrate/macrocrystals 100 mg capsule (Macrobid) oxycodone-acetaminophen 5 mg-325 1 tab PO QDAY PRN 06/10/24 Unknown History mg tablet Allergy/AdvReac Type Severity Reaction Status Date / Time amoxicillin Allergy Severe Hives Verified 06/12/24 14:10 aspirin Allergy Severe Hives, SOB Verified 06/12/24 14:10 Sulfa (Sulfonamide Allergy Severe Hives Verified 06/12/24 14:10 Antibiotics) Family History Mother Diabetes Father CAD (coronary artery disease) Sister Lung cancer Son Kidney stone Surgical History Presence of permanent cardiac pacemaker (04/01/19) S/P ablation of atrial flutter (04/01/19) History of cystoscopy Hx of right cataract extraction Hx of left cataract extraction History of kidney surgery History of appendectomy Social History household members: none housing: house number of children: 3 current occupational status: retired Smoking Status: Never smoker alcohol intake: never substance use type: does not use what type of physical activity do you participate in: none do you feel safe at home: Yes ROS <WINNIE Gibson - Last Filed: 06/12/24 18:02> ROS ED ROS Narrative Constitutional: Negative for fever, chills, weight loss, weakness Eyes: Negative for vision loss, vision change, double vision ENT: Negative for any sore throat, ear pain, congestion Cardiovascular: Negative for any chest pain, tightness, palpitations Respiratory: Negative for any cough, sputum production, hemoptysis, dyspnea, dyspnea on exertion, orthopnea Gastrointestinal: Negative for any abdominal pain, nausea, vomiting, diarrhea, constipation, blood in stool, blood in vomit : Negative for any urinary frequency, dysuria, retention, blood in urine Muscle skeletal: Negative for any neck pain. Positive for left thoracic, lumbar back pain Neurological: Negative for any headache, syncope, dizziness Skin: Negative for any rashes, itching, abrasions, lacerations Psychiatric: Negative for any depression, anxiety, stress, suicidal ideation, homicidal ideation Hematologic: Negative for any excessive bruising, easy bleeding EXAM <WINNIE Gibson - Last Filed: 06/12/24 18:02> Physical Exam Narrative Exam Narrative: Vital signs reviewed. Patient does appear to be uncomfortable secondary to back pain. HEET: Head normocephalic atraumatic, TMs clear bilaterally. Posterior pharynx is clear, moist mucous membranes. Nares clear bilaterally. Neck: Supple with no lymphadenopathy or tenderness. No signs of meningismus. Cardiac: Regular rate and rhythm no murmurs gallops or rubs, equal peripheral pulses bilaterally. Respiratory: Lungs clear to auscultation bilaterally. No chest tenderness. Abdomen: Soft, nontender, nondistended. No abdominal bruit or pulsatile masses. No hepatosplenomegaly Extremities: No peripheral edema, no signs of gross trauma or deformity. Active full range of motion of all extremities. Neuro: Cranial nerves II through XII intact, no focal neurological deficits. Skin: Clean dry and intact with no rash, purpura, petechiae, vesicles or pustules. Backs/flank: Patient has no CVA tenderness. Patient's pain is to the thoracic spine and then slightly left laterally, this also goes all the way down to her lumbar spine. Patient is able to get herself up in bed. She has no radiation to her legs. Psych: Normal mood and affect. No SI, HI or acute psychosis. Const Vital Signs: 06/12/24 14:10 Temperature 97.7 F L Temperature Source Temporal Pulse Rate 82 Respiratory Rate 18 Blood Pressure 159/121 H Blood Pressure Mean 133 Pulse Ox 97 Oxygen Delivery Method Room Air <Dr. Abdifatah Lemon MD - Last Filed: 06/12/24 18:11> Physical Exam Const Vital Signs: 06/12/24 14:10 Temperature 97.7 F L Temperature Source Temporal Pulse Rate 82 Respiratory Rate 18 Blood Pressure 159/121 H Blood Pressure Mean 133 Pulse Ox 97 Oxygen Delivery Method Room Air [facility] <WINNIE Gibson - Last Filed: 06/12/24 18:02> [facility] Lab Data Labs: Laboratory Results - last 24 hr 06/12/24 06/12/24 14:40 16:54 WBC 5.2 RBC 3.86 L Hgb 12.4 Hct 37.4 MCV 96.9 MCH 32.1 H MCHC 33.2 RDW Std Deviation 43.8 RDW Coeff of Jason 12.3 Plt Count 140 L MPV 9.7 Immature Gran % (Auto) 0.400 Neut % (Auto) 60.0 Lymph % (Auto) 23.7 Kidder % (Auto) 10.1 H Eos % (Auto) 5.0 Baso % (Auto) 0.8 Absolute Neuts (auto) 3.1 Absolute Lymphs (auto) 1.24 Nucleated RBC % 0 PT 25.5 H INR 2.3 Sodium 139 Potassium 3.4 L Chloride 105 Carbon Dioxide 26.0 Anion Gap 8 BUN 16 Creatinine 0.96 Estim Creat Clear Calc 56.42 Est GFR (MDRD) Af Amer 73 Est GFR (MDRD) Non-Af 60 BUN/Creatinine Ratio 16.8 Glucose 113 H Calcium 9.1 Urine Color Yellow Urine Clarity Sl. Cloudy Urine pH 6.0 Ur Specific [place] 1.015 Urine Protein 15 H Urine Glucose (UA) Normal Urine Ketones 5 H Urine Occult Blood Negative Urine Nitrite Negative Urine Bilirubin Negative Urine Urobilinogen Normal Ur Leukocyte Esterase 25 H Urine RBC 0 SEEN Urine WBC 0-5 SEEN Ur Squamous Epith Cells 0-5 SEEN Urine Bacteria 0 SEEN Urine Mucus 0 SEEN Radiography Diagnostic Testing: Clinical Impression(s) from Imaging Studies Lumbar Spine CT 06/12/24 14:25 IMPRESSION: (NOT LISTED IN ORDER OF SIGNIFICANCE) Multilevel degenerative changes, as described above. Bilateral neural foraminal stenosis at L4-5. Electronically Signed: Tavo Schilling MD at 15:45 EDT , Thoracic Spine CT 06/12/24 14:25 IMPRESSION: (NOT LISTED IN ORDER OF SIGNIFICANCE) There are degenerative changes as noted above. Partially visualized severe right hydronephrosis. Electronically Signed: Tavo Schilling MD at 15:42 EDT , Treatment and Re-Evaluation :: Differential diagnosis includes however is not limited to: Cauda equina, thoracic strain, lumbar strain, compression fractures, arthritis Patient appears to be in no obvious respiratory distress vital signs are stable, patient does appear to be uncomfortable secondary to her acute on chronic back pain. Patient will have basic laboratories drawn, including CBC BMP, PT/INR secondary being on Coumadin. Patient will receive a CT scan of the thoracic and lumbar spine. This to be looking for any compression fractures, arthrosis, disc height loss. Patient given IV morphine, Zofran. Patient will be reevaluated. All radiologic examinations were read, reviewed by the emergency department attending. From these reads, a plan of care will be put in place. Patient's laboratory values showed normal CBC, PT/INR shows a PT of 25.5 with INR 2.3. Patient's chemistries were unremarkable. Patient CT scan of the lumbar spine shows multilevel degenerative changes as described, bilateral neural foraminal stenosis at L4-L5. Thoracic spine CT shows degenerative changes are noted, partially visualized severe right hydronephrosis. Urinalysis will be added. Urinalysis was negative. Patient does have history of this hydronephrosis on the right side. At this time, there is no acute pathology. Patient will be discharged home, follow-up with pain management, all questions were answered, patient stable for discharge. <Dr. Abdifatah Lemon MD - Last Filed: 06/12/24 18:11> [facility] Narrative Medical decision making narrative: I have personally performed a face to face assessment of the patient and have reviewed the SUHAS Note. I performed a substantive portion of the visit including all aspects of the following. My gracia findings include: History is 79-year-old female with chronic back pain for months. Primarily left posterior rib cage. No recent fall injury or trauma. No fever or dysuria. Recently had screening labs showed potential UTI was placed on Macrobid. She denies any dysuria. She denies any weakness or numbness to her legs. She is never had back surgery. No fever. Exam is [well-appearing 79-year-old. Vital signs stable afebrile. H EENT exam unremarkable. Lungs clear. Heart regular rhythm. Chest wall and ribs nontender. Abdomen soft nontender. Moving all 4 extremities. Normal motor strength upper and lower extremities. 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 Normal dorsi plantarflexion. No cauda equina. Back there is no spine tenderness she is pain over her left posterior rib cage on the lower aspect but is not reproducible. There is no bruising or crepitance. Patient is awake and alert. No focal motor weakness or numbness.] Medical Decision Making [workup was basically benign. Unremarkable CBC and chemistry. She is on Coumadin her INR is 2.3. That was recently hired on a ho ld her Coumadin. UA is negative. CAT scan of her lumbar and thoracic spine shows degenerative disc disease and arthritis but no acute abnormality. Discussed all this with the patient and family. She has pain medication at home. She has been referred to pain management by her primary care physician. She also be referred to local orthopedic spine physician either Dr. Doran or Dr. Rodriguez.] Other additions or changes: [None] Lab Data Labs: Laboratory Results - last 24 hr 06/12/24 06/12/24 14:40 16:54 WBC 5.2 RBC 3.86 L Hgb 12.4 Hct 37.4 MCV 96.9 MCH 32.1 H MCHC 33.2 RDW Std Deviation 43.8 RDW Coeff of Jason 12.3 Plt Count 140 L MPV 9.7 Immature Gran % (Auto) 0.400 Neut % (Auto) 60.0 Lymph % (Auto) 23.7 Kidder % (Auto) 10.1 H Eos % (Auto) 5.0 Baso % (Auto) 0.8 Absolute Neuts (auto) 3.1 Absolute Lymphs (auto) 1.24 Nucleated RBC % 0 PT 25.5 H INR 2.3 Sodium 139 Potassium 3.4 L Chloride 105 Carbon Dioxide 26.0 Anion Gap 8 BUN 16 Creatinine 0.96 Estim Creat Clear Calc 56.42 Est GFR (MDRD) Af Amer 73 Est GFR (MDRD) Non-Af 60 BUN/Creatinine Ratio 16.8 Glucose 113 H Calcium 9.1 Urine Color Yellow Urine Clarity Sl. Cloudy Urine pH 6.0 Ur Specific [place] 1.015 Urine Protein 15 H Urine Glucose (UA) Normal Urine Ketones 5 H Urine Occult Blood Negative Urine Nitrite Negative Urine Bilirubin Negative Urine Urobilinogen Normal Ur Leukocyte Esterase 25 H Urine RBC 0 SEEN Urine WBC 0-5 SEEN Ur Squamous Epith Cells 0-5 SEEN Urine Bacteria 0 SEEN Urine Mucus 0 SEEN Radiography Diagnostic Testing: Clinical Impression(s) from Imaging Studies Lumbar Spine CT 06/12/24 14:25 IMPRESSION: (NOT LISTED IN ORDER OF SIGNIFICANCE) Multilevel degenerative changes, as described above. Bilateral neural foraminal stenosis at L4-5. Electronically Signed: Tavo Schilling MD at 15:45 EDT , Thoracic Spine CT 06/12/24 14:25 IMPRESSION: (NOT LISTED IN ORDER OF SIGNIFICANCE) There are degenerative changes as noted above. Partially visualized severe right hydronephrosis. Electronically Signed: Tavo Schilling MD at 15:42 EDT Reading Location ID and State: [facility] / [place] , Service support , Discharge Plan Triage Chief Complaint: Back ED Midlevel Provider: Sharan Aldridge ED Provider: Abdifatah Lemon Dx/Rx/DC Orders Clinical Impression: Acute exacerbation of chronic low back pain, Arthritis, Hydronephrosis of right kidney Instructions: Understanding Hydronephrosis, ED Back Pain (Acute or Chronic), ED Osteoarthritis Prescriptions: No Action albuterol sulfate 90 mcg/actuation HFA aerosol inhaler 2 puff INHALATION Q4H PRN (Reason: shortness of breath or wheezing) Qty: 8.5 6RF Rx Instructions: administer with spacer montelukast 10 mg tablet 10 mg PO QPM Qty: 30 3RF oxybutynin chloride 10 mg tablet extended release 24hr 10 mg PO DAILY Patient Comments: pt unsure if she is taking this med or not cholecalciferol (vitamin D3) 50 mcg (2,000 unit) capsule 50 mcg PO DAILY mecobalamin (vitamin B12) 1,000 mcg tablet,chewable 1,000 mcg PO DAILY glimepiride 2 mg tablet 2 mg PO BID oxycodone-acetaminophen 5-325 mg tablet 1 tab PO QDAY PRN cyclobenzaprine 5 mg tablet 10 mg PO BID warfarin 5 MG tablet 5 mg PO SUMOTUWESA Protocol: Dose Management Condition: Thursday Dose/Route: 0 mg Instruction: 0 tablets Condition: Thursday Dose/Route: 0 mg Instruction: 0 tablets Condition: Thursday Dose/Route: 0 mg Instruction: 0 tablets Condition: Thursday Dose/Route: 0 mg Instruction: 0 tablets Condition: Dose/Route: 0 mg Instruction: 0 tablets Condition: Thursday Dose/Route: 0 mg Instruction: 0 tablets Condition: Thursday Dose/Route: 0 mg Instruction: 0 tablets Protocol Text: Adjustment Start Date: Thursday06/10/24 INR Value: 3.7 INR Date: 06/10/24 Recheck Date: 06/14/24 atorvastatin 10 MG tablet 10 mg PO QHS gabapentin 300 mg capsule 600 mg PO QHS Patient Comments: Take 2 capsules by mouth daily at bedtime AND 1 capsule every morning. gabapentin 300 mg capsule 300 mg PO BREAKFAST Patient Comments: Take 2 capsules by mouth daily at bedtime AND 1 capsule every morning. Rx Instructions: 300 mg orally; warfarin [Jantoven] 2.5 mg tablet 2.5 mg PO THFR Protocol: Dose Management Condition: Thursday Dose/Route: 0 mg Instruction: 0 tablets Condition: Thursday Dose/Route: 0 mg Instruction: 0 tablets Condition: Thursday Dose/Route: 0 mg Instruction: 0 tablets Condition: Thursday Dose/Route: 0 mg Instruction: 0 tablets Condition: Dose/Route: 0 mg Instruction: 0 tablets Condition: Thursday Dose/Route: 0 mg Instruction: 0 tablets Condition: Thursday Dose/Route: 0 mg Instruction: 0 tablets Protocol Text: Adjustment Start Date: Thursday06/10/24 INR Value: 3.7 INR Date: 06/10/24 Recheck Date: 06/14/24 magnesium oxide 400 mg magnesium tablet 250 mg PO DAILY acetaminophen 500 mg Tablet 1,000 mg PO Q8 PRN (Reason: fever or pain) Qty: 0 0RF Symbicort 160-4.5 mcg/actuation HFA aerosol inhaler 2 puff INHALATION BID Qty: 10.2 11RF nitrofurantoin monohyd/m-cryst [Macrobid] 100 mg capsule 100 mg PO Q12H 7 Days Qty: 14 0RF Rx Instructions: must administer with a meal/food Primary Care Provider: Ro Reed Referrals: Ro Reed MD [Primary Care Provider] - Activity Restrictions/Additional Instructions: 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 Return for any worsening symptoms. Print Language: Bermudian Disposition Disposition: Home, Self Care
[2024-06-12] MEDS: Morphine 4 MG/ML Syringe IV (14:37)
[2024-06-12] MEDS: Ondansetron 4 MG/2 ML Vial IV (14:37)
[2024-06-12 14:39] VITALS: BMI 28.8
[2024-06-12 14:48] LABS: Absolute Lymphocyte Count 1.24 X10^3/uL (0.83-4.51); Absolute Neutrophil Count 3.1 X10^3/uL (2.0-7.7); Basophil# 0.04 X10^3/uL; Basophil% 0.8 % (0-1); Eosinophil# 0.26 X10^3/uL; Hematocrit 37.4 % (37-47); Hemoglobin 12.4 g/dL (12.0-15.0); Lymphocyte # 1.24 X10^3/ul (0.83-4.51); Lymphocyte % 23.7 % (19-41); Mean Corp Hgb Conc 33.2 g/dL (32-36); Mean Corpuscular Hgb 32.1 pg (27.0-32.0); Mean Corpuscular Volume 96.9 fL (81-99); Mean Platelet Vol. 9.7 fl (6.2-12.0); Monocyte# 0.53 X10^3/uL; Monocyte% 10.1 % (0-10); NRBC Flagged by Analyzer 0 % (0-5); Neutrophil # 3.14 X10^3/uL (2.7-7.7); Platelet Count 140 K/mm3 (150-450); RBC Distribution Width CV 12.3 % (11.6-14.6); RBC Distribution Width SD 43.8 fl (35.1-43.9); Red Blood Count 3.86 M/mm3 (4.2-5.4); White Blood Count 5.2 K/mm3 (4.4-11.0)
[2024-06-12 14:57] LABS: International Normalized Ratio 2.3; Prothrombin Time (Protime)PT. 25.5 SECONDS (11.7-14.9)
[2024-06-12 15:02] LABS: Anion Gap 8 (5-15); BUN 16 mg/dL (7-18); BUN/Creat Ratio 16.8 RATIO (10-20); Calcium,Total 9.1 mg/dL (8.5-10.1); Chloride 105 mmol/L (98-107); Creatinine, Serum 0.96 mg/dL (0.55-1.02); EST Glomerular Filtration Rate 60 mL/min (>60); Est Glom Filt Rate - Afr Amer 73 mL/min (>60); Estimated Creatinine Clearance 56.42 ml/min; Glucose 113 mg/dL (74-106); Potassium 3.4 mmol/L (3.5-5.1); Sodium Level 139 mmol/L (136-145)
[2024-06-12 16:59] LABS: Bacteria 0 SEEN /hpf (None Seen); Mucous, Urine 0 SEEN /hpf (<or=2+); Red Blood Cells-Urine 0 SEEN /hpf (0-5)
[2024-06-12 17:05] LABS: Color, Urine Yellow (Yellow); Glucose, Dipstick Normal (Normal); Ketone-Dipstick 5 mg/dl (Negative); Leukocyte Esterase-Dipstick 25 /ul (Negative); Nitrite-Dipstick Negative (Negative); Occult Blood-Urine Negative /ul (Negative); Protein-Dipstick 15 mg/dl (Negative); Specific Gravity, Urine 1.015 (1.002-1.030); Urine Bilirubin Dipstick Negative (Negative); Urine Clarity Sl. Cloudy (Clear); Urine Urobilinogen Normal (Normal)
[2024-06-12 17:14] LABS: Squamous Epithelial Cells - UA 0-5 SEEN /hpf (5-10); White Blood Cells 0-5 SEEN /hpf (0-5)
[2024-06-12 18:09] VITALS: BP 110/65; PULSE 80; RESP 16; O2SAT 98
[2024-06-12 18:16] VITALS: BP 110/65; PULSE 80; RESP 16; TEMP 36.5; O2SAT 98
== END 2024-06-12 18:17 | disposition home or self-care (01) ==
PROVIDERS: Nurse Practitioner; Emergency Provider Emergency Medicine; PCP Internal Medicine; Visit Provider Emergency Medicine
DX: G89.29 Other chronic pain (principal); I48.91 Unspecified atrial fibrillation; E11.9 Type 2 diabetes mellitus without complications; N13.6 Pyonephrosis; I10 Essential (primary) hypertension; E78.5 Hyperlipidemia, unspecified; M54.50 Low back pain, unspecified; M46.86 Other specified inflammatory spondylopathies, lumbar region; M46.84 Other specified inflammatory spondylopathies, thoracic region; Z95.0 Presence of cardiac pacemaker; Z79.01 Long term (current) use of anticoagulants; G47.33 Obstructive sleep apnea (adult) (pediatric); Z99.89 Dependence on other enabling machines and devices; Z79.899 Other long term (current) drug therapy; J45.909 Unspecified asthma, uncomplicated; Z79.51 Long term (current) use of inhaled steroids; Z98.41 Cataract extraction status, right eye; Z98.42 Cataract extraction status, left eye; Z90.49 Acquired absence of other specified parts of digestive tract
CPT/HCPCS: 72128; 72131; 80048; 81001; 85025; 85610; 96374; 96375; 96376; 99284; J7030; P9612; A4216; J2405

== ENCOUNTER 2024-06-16 14:12 | Inpatient (IN) | payer MEDICARE, SELFPAY ==
[2024-06-16] VITALS (17 sets, daily range): BP systolic 116–167; BP diastolic 53–140; PULSE 61–102; RESP 15–33; TEMP 36.3–36.7; O2SAT 95–100; BMI 28.8; BMI 27.6
[2024-06-16 17:13] LABS: Absolute Lymphocyte Count 1.27 X10^3/uL (0.83-4.51); Absolute Neutrophil Count 3.6 X10^3/uL (2.0-7.7); Basophil# 0.04 X10^3/uL; Basophil% 0.7 % (0-1); Eosinophil# 0.15 X10^3/uL; Eosinophils% 2.8 % (0-5); Hematocrit 40.3 % (37-47); Hemoglobin 13.1 g/dL (12.0-15.0); Lymphocyte # 1.27 X10^3/ul (0.83-4.51); Lymphocyte % 23.4 % (19-41); Mean Corp Hgb Conc 32.5 g/dL (32-36); Mean Corpuscular Hgb 31.3 pg (27.0-32.0); Mean Corpuscular Volume 96.4 fL (81-99); Mean Platelet Vol. 9.6 fl (6.2-12.0); Monocyte# 0.38 X10^3/uL; NRBC Flagged by Analyzer 0 % (0-5); Neutrophil # 3.58 X10^3/uL (2.7-7.7); Neutrophil % 65.9 % (47-70); Platelet Count 157 K/mm3 (150-450); RBC Distribution Width CV 12.3 % (11.6-14.6); RBC Distribution Width SD 43.8 fl (35.1-43.9); Red Blood Count 4.18 M/mm3 (4.2-5.4); White Blood Count 5.4 K/mm3 (4.4-11.0)
[2024-06-16] MEDS: 0.9% Normal Saline (1000mL) 1,000 ML 999 ML IV (17:23)
[2024-06-16 17:25] LABS: International Normalized Ratio 1.4; Prothrombin Time (Protime)PT. 16.8 SECONDS (11.7-14.9)
[2024-06-16 17:26] LABS: Partial Thromboplast Time 30.6 Seconds (24.1-36.2)
[2024-06-16 17:30] LABS: BNP,B-Type NATRIURETIC PEPTIDE 94.9 pg/mL (0-100)
--- NOTE | 2024-06-16 17:32 | RAD_ITS ---
INDICATION: chest pain EXAMINATION/TECHNIQUE: X-RAY - XR Chest 2 Views COMPARISON: 06/10/2024 FINDINGS: LINES/DEVICES: Stable transvenous pacemaker. LUNGS: No consolidation, edema or effusion. No pneumothorax. MEDIASTINUM AND CARDIOVASCULAR STRUCTURES: Cardiac silhouette stable within upper normal limits. BONES AND SOFT TISSUES: No acute changes. RAD/Chest PA and Lateral IMPRESSION: No radiographic evidence of acute cardiopulmonary disease. Electronically Signed: Polo Freeman MD at 18:23 EDT ,
[2024-06-16 17:33] LABS: Mucous, Urine 0 SEEN /hpf (<or=2+); Red Blood Cells-Urine 0 SEEN /hpf (0-5)
[2024-06-16 17:40] LABS: Anion Gap 10 (5-15); BUN 11 mg/dL (7-18); BUN/Creat Ratio 14.1 RATIO (10-20); Calcium,Total 9.5 mg/dL (8.5-10.1); Chloride 101 mmol/L (98-107); Creatinine, Serum 0.78 mg/dL (0.55-1.02); EST Glomerular Filtration Rate 76 mL/min (>60); Est Glom Filt Rate - Afr Amer 92 mL/min (>60); Glucose 119 mg/dL (74-106); Potassium 3.7 mmol/L (3.5-5.1); Sodium Level 138 mmol/L (136-145); Troponin-I HS (w/2H Reflex) 15 pg/mL (3.0-54.0)
[2024-06-16 17:41] LABS: Color, Urine Yellow (Yellow); Glucose, Dipstick Normal (Normal); Ketone-Dipstick 15 mg/dl (Negative); Leukocyte Esterase-Dipstick 100 /ul (Negative); Nitrite-Dipstick Negative (Negative); Occult Blood-Urine Negative /ul (Negative); Protein-Dipstick Negative (Negative); Specific Gravity, Urine 1.005 (1.002-1.030); Urine Bilirubin Dipstick Negative (Negative); Urine Clarity Clear (Clear); Urine Urobilinogen Normal (Normal)
[2024-06-16 18:16] LABS: Bacteria 1+ /hpf (None Seen); Squamous Epithelial Cells - UA 5-10 SEEN /hpf (5-10); White Blood Cells 5-10 SEEN /hpf (0-5)
--- NOTE | 2024-06-16 18:22 | CT_ITS ---
INDICATION: ams EXAMINATION: CT BRAIN - CT Head or Brain W/O Contrast Injection TECHNIQUE: Multiple axial images were obtained of the head without intravenous contrast. A radiation dose optimization technique was used for this scan. IV Contrast dosage and agent: None. COMPARISON: 06/01/2024 FINDINGS: BRAIN PARENCHYMA: No intra- or extra-axial hemorrhage. No evidence of acute infarct. No intracranial mass or mass effect. There is preservation of the carmen/white matter interface. Posterior fossa structures are unremarkable. Stable volume loss with low attenuation of the periventricular white matter typical of chronic small vessel disease. CSF SPACES: Stable. No hydrocephalus. Basal cisterns are patent. CALVARIUM, SKULL BASE, PARANASAL SINUSES AND MASTOID AIR CELLS: Clear. No discrete lytic or blastic abnormalities. CT/Brain/Head without Contrast IMPRESSION: Volume loss with chronic white matter changes. No acute intracranial findings. Electronically Signed: Polo Freeman MD at 19:41 EDT ,
[2024-06-16 19:08] LABS: Reflex Troponin-HS? (from REC) Y
[2024-06-16 19:40] LABS: Troponin-I HS 15 pg/mL (3.0-54.0)
[2024-06-16] MEDS: HYDROcodone Bitartrate/Apap 5/325 Tablet PO (19:55)
--- NOTE | 2024-06-16 20:59 | HP.PCM.HOS_ITS ---
HPI - General General Date of Admission: 06/16/24 Date of Service: 06/16/24 Chief Complaint: Toxic/metabolic encephalopathy HPI Narrative ISAIAH COLLAZO, is a 79 F who presented to the emergency department at [facility] on 06/16/2024 with her family reporting that she has not had anything to really eat or drink over the last 2 to 3 days and has not been taking her home medications. Patient denies any nausea or vomiting. Denies any abdominal pain and states she just forgets to take her medications and to eat sometimes. She lives alone however family is not on a regular basis. Her daughter states that they gave her meds out for her daily but is her responsibility to take them and she has not been doing so. Her daughter does report they have noticed her memory has been getting worse over time as of late she is oriented to self and place but time has become more difficult. This has been a slow decline over time and she does have a history of dementia. Her daughter reports that she was recently diagnosed with urinary tract infection and was started on antibiotics but has not been taking that at home along with her other medications. Family is currently in the process of discussing ultimately what to do with regards to her living situation but are clear with her options are and would like to talk further with case management if possible. Patient's only other complaint is right knee pain secondary to osteoarthritis. She does have some intermittent occasional falls but nothing on a regular basis. She states she does feel unsteady at times because of that right knee. Vital signs on presentation showed a temperature of 97.4, blood pressure 138/104, heart rate 63, respiratory rate has been between 18 and 22 and oxygen saturation is 100% on room air. Her CBC is unremarkable. Patient is on chronic anticoagulation with Coumadin and her INR is 1.4. Chemistry panel is unremarkable. Troponin was normal x 2. BNP is not elevated. TSH was 2.1. Her UA is somewhat suggestive of infection having positive leuk esterase, white cells, and 1+ bacteria. She does not appear dehydrated however her ketones are elevated so I suspect she is in a ketotic state due to her decreased p.o. intake with regards to food. She was given IV fluids and started on ceftriaxone in the emergency department after cultures were sent. [facility] Medical History History of complete heart block Other intervertebral disc degeneration, lumbar region Low back pain History of fall Non-pressure chronic ulcer of other part of left foot with fat layer exposed Pain in left foot Cardiac murmur Left knee sprain Falls Abnormal EKG Ulcer of right lower extremity with fat layer exposed Atrial flutter Obesity Pulmonary hypertension Subtherapeutic international normalized ratio (INR) Hyperlipidemia Type 2 diabetes mellitus Wears glasses Wears dentures Post-menopausal Sore on leg Arthritis Dietary restriction CPAP (continuous positive airway pressure) dependence Non-smoker Shortness of breath on exertion Cardiology follow-up encounter History of stress test History of echocardiogram Ureteral mass Hydronephrosis, right Fracture of left elbow Cervical strain, acute COVID-19 Essential hypertension Hyperlipidemia RAMESH (obstructive sleep apnea) Asthma DDD (degenerative disc disease) Shoulder dislocation Contact dermatitis and other eczema Allergic rhinitis 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 Obesity Diabetes mellitus Hypersomnia Other secondary pulmonary hypertension BMI 33.0-33.9,adult Hx of bladder infections halfway (current) use of anticoagulants Atrial fibrillation Home Medications ?Medication ?Instructions ?Recorded ?Last Taken ?Type warfarin 5 mg tablet 5 mg PO .COMPLEX blood thinner 11/18/18 05/04/24 History atorvastatin 10 mg tablet 10 mg PO QHS cholesterol 12/11/19 05/03/24 History gabapentin 300 mg capsule 300 mg PO BREAKFAST nerve pain 08/04/22 05/04/24 History gabapentin 300 mg capsule 600 mg PO QHS Neuropathy 08/04/22 05/03/24 History warfarin 2.5 mg tablet (Jantoven) 2.5 mg PO .COMPLEX blood thinner 12/30/23 01/16/24 History budesonide-formoterol HFA 160 2 puff inhalation BID asthma #10.2 01/20/24 05/04/24 Rx mcg-4.5 mcg/actuation aerosol grams inhaler (Symbicort) albuterol sulfate 90 mcg/actuation 2 puff inhalation Q4H PRN 03/04/24 Unknown Rx aerosol inhaler shortness of breath or wheezing #8.5 grams montelukast 10 mg tablet 10 mg PO QPM #30 tabs 03/04/24 05/04/24 Rx cholecalciferol (vitamin D3) 50 50 mcg PO DAILY 04/13/24 05/04/24 History mcg (2,000 unit) capsule magnesium oxide 250 mg PO DAILY SUPPLEMENT 04/13/24 05/04/24 History mecobalamin (vitamin B12) 1,000 1,000 mcg PO DAILY 04/13/24 05/04/24 History mcg chewable tablet oxybutynin chloride 10 mg 10 mg PO DAILY 04/13/24 Unknown History tablet,extended release 24 hr acetaminophen 500 mg tablet 1,000 mg (2 x 500 mg) PO Q8 PRN 05/06/24 Unknown Rx fever or pain #0 tabs cyclobenzaprine 5 mg tablet 10 mg PO BID 06/10/24 Unknown History glimepiride 2 mg tablet 2 mg PO BID 06/10/24 Unknown History oxycodone-acetaminophen 5 mg-325 1 tab PO QDAY PRN pain 06/10/24 Unknown History mg tablet Allergy/AdvReac Type Severity Reaction Status Date / Time amoxicillin Allergy Severe Hives Verified 06/16/24 14:14 aspirin Allergy Severe Hives, SOB Verified 06/16/24 14:14 Sulfa (Sulfonamide Allergy Severe Hives Verified 06/16/24 14:14 Antibiotics) Family History Mother Diabetes Father CAD (coronary artery disease) Sister Lung cancer Son Kidney stone Surgical History Presence of permanent cardiac pacemaker (04/01/19) S/P ablation of atrial flutter (04/01/19) History of cystoscopy Hx of right cataract extraction Hx of left cataract extraction History of kidney surgery History of appendectomy Social History household members: none housing: house number of children: 3 current occupational status: retired Smoking Status: Never smoker alcohol intake: never substance use type: does not use what type of physical activity do you participate in: none do you feel safe at home: Yes ROS Constitutional Constitutional: Reports weakness; Denies anorexia, change in weight, chills, fatigue, fever(s), malaise, night sweats or other Eyes Eyes: Denies blurry vision, change in eye color, change in vision, discharge from eye(s), double vision, erythema, eye pain, loss of vision or other ENT HEENT: Denies abnormal hearing, dysphagia, ear pain, epistaxis, headache(s), hearing loss, nasal congestion, nasal discharge, post nasal drip, sinus pressure, sore throat or other Cardiovascular Cardiovascular: Denies chest pain, claudication, dyspnea on exertion, edema, lightheadedness, orthopnea, palpitations, paroxysmal nocturnal dyspnea, rapid heart rate, syncope or other Respiratory/Chest Respiratory/Chest: Denies cough, dyspnea, excessive phlegm production, hemoptysis, productive cough, shortness of breath at rest, shortness of breath with exertion, wheezing or other Gastrointestinal Gastrointestinal: Reports other Details: Decreased appetite ; Denies abdominal pain, coffee ground emesis, constipation, diarrhea, dyspepsia, hematemesis, hematochezia, loose stools, melena, nausea or vomiting Genitourinary Genitourinary: Denies burning urination, difficulty urinating, dysuria, hematuria, nocturia, urinary frequency, urinary hesitancy, urinary incontinence, urinary urgency or other Musculoskeletal Musculoskeletal: Reports back pain, joint pain, joint stiffness and joint swelling; Denies arthralgias, myalgias, neck pain or other Neurologic Neurologic: Denies abnormal gait, abnormal speech, confusion, disequilibrium, dizziness, focal weakness, headache(s), numbness, paresthesias, seizure-like activity, seizures, syncope, tingling, tremor(s) or other Psychiatric Psychiatric: Denies anxiety, depression, homicidal ideation, suicidal ideation or other Endocrine Endocrinology: Denies change in body appearance, cold intolerance, excessive sweating, heat intolerance, polydipsia, polyuria or other Hematologic/Lymphatic Hematologic/Lymphatic: Reports easy bleeding and easy bruising; Denies anemia, lymphadenopathy or other Allergic/Immunologic Allergic/Immunologic: Denies rhinitis, hives, eczemia, asthma or other Vital Signs Vital Signs Vital Signs: 06/16/24 14:14 06/16/24 16:12 06/16/24 17:06 Temperature 97.4 F L 97.8 F Temperature Source Temporal Oral Pulse Rate 63 73 Respiratory Rate 18 21 H Respiratory Effort Respiratory Pattern Blood Pressure 138/104 H 133/90 H Blood Pressure Mean 115 104 Pulse Ox 100 97 Oxygen Delivery Method Room Air Room Air Room Air 06/16/24 17:21 06/16/24 18:16 06/16/24 18:30 Temperature Temperature Source Pulse Rate 102 H Respiratory Rate 20 H Respiratory Effort Normal Respiratory Pattern Normal Blood Pressure 157/72 H 159/138 H Blood Pressure Mean 100 146 Pulse Ox 96 Oxygen Delivery Method 06/16/24 18:30 06/16/24 18:45 06/16/24 19:00 Temperature Temperature Source Pulse Rate 70 62 Respiratory Rate 22 H 18 Respiratory Effort Respiratory Pattern Blood Pressure 159/138 H 158/81 H Blood Pressure Mean 146 104 Pulse Ox 100 97 Oxygen Delivery Method Room Air 06/16/24 19:15 06/16/24 19:30 06/16/24 19:45 Temperature Temperature Source Pulse Rate 61 64 71 Respiratory Rate 16 23 H 33 H Respiratory Effort Respiratory Pattern Blood Pressure 167/140 H Blood Pressure Mean 150 Pulse Ox 98 97 Oxygen Delivery Method 06/16/24 20:00 06/16/24 20:15 06/16/24 20:30 Temperature Temperature Source Pulse Rate 90 77 Respiratory Rate 21 H 16 Respiratory Effort Respiratory Pattern Blood Pressure 134/54 H 125/53 H Blood Pressure Mean 78 73 Pulse Ox 98 97 Oxygen Delivery Method Room Air 06/16/24 20:45 Temperature Temperature Source Pulse Rate 67 Respiratory Rate 21 H Respiratory Effort Respiratory Pattern Blood Pressure Blood Pressure Mean Pulse Ox Oxygen Delivery Method Physical Exam Const alert, no apparent distress, healthy appearing and well nourished Constitutional Narrative: Elderly, overweight, white female, lying in bed, appears comfortable, nontoxic, oriented to self and place but not time (was unable to tell me month or year), daughter at bedside General Appearance: cooperative HEENT normocephalic, head/scalp atraumatic, hearing grossly normal bilaterally and moist oral mucous membranes HEENT Narrative: Mallampati 3, no thrush Eyes PERRL, EOMs intact bilaterally and conjunctivae normal Eyes Narrative: No scleral icterus Neck no lymphadenopathy and supple Resp normal respiratory effort, no retractions, no use of accessory muscles and clear to auscultation bilaterally Auscultation: Negative for rales, rhonchi or wheezes Cardio regular rate, regular rhythm, S1 normal heart sound, S2 normal heart sound, no murmurs, no rub, no gallops and no clicks GI normal to inspection, nondistended, normoactive bowel sounds, soft to palpation and non-tender Extremity no clubbing, cyanosis or edema Extremity Narrative: Pedal and radial pulses are 2+, decreased range of motion right knee due to swelling, arthritis noted with joint deformation noted Skin No no rashes or lesions noted, no wounds, skin turgor normal, no jaundice, no petechiae and no mottling Skin Narrative: Few scattered ecchymosis with various stages of healing indicative of previous falls Neuro CN's II-XII intact bilaterally, moves all extremities and no focal motor deficits Neuro Narrative: Mild generalized weakness with no focal deficits Sensorium / Orientation: awake, alert, oriented to person and oriented to place; Negative for oriented to time Speech: speech normal Psych affect normal Psych Narrative: Very pleasant, eye contact is good, interacts appropriately Results Lab / Micro Data 06/16/24 17:04 06/16/24 17:04 Labs: Laboratory Results - last 24 hr 06/16/24 17:04: WBC 5.4, RBC 4.18 L, Hgb 13.1, Hct 40.3, MCV 96.4, MCH 31.3, MCHC 32.5, RDW Std Deviation 43.8, RDW Coeff of Jason 12.3, Plt Count 157, MPV 9.6, Immature Gran % (Auto) 0.200, Neut % (Auto) 65.9, Lymph % (Auto) 23.4, [place] % (Auto) 7.0, Eos % (Auto) 2.8, Baso % (Auto) 0.7, Absolute Neuts (auto) 3.6, Absolute Lymphs (auto) 1.27, Nucleated RBC % 0, PT 16.8 H, INR 1.4, APTT 30.6, Sodium 138, Potassium 3.7, Chloride 101, Carbon Dioxide 27.0, Anion Gap 10, BUN 11, Creatinine 0.78, Est GFR (MDRD) Af Amer 92, Est GFR (MDRD) Non-Af 76, BUN/Creatinine Ratio 14.1, Glucose 119 H, Calcium 9.5, Troponin I High Sens 15, B-Natriuretic Peptide 94.9, TSH 2.110 06/16/24 17:25: Urine Color Yellow, Urine Clarity Clear, Urine pH 7.0, Ur Specific [place] 1.005, Urine Protein Negative, Urine Glucose (UA) Normal, Urine Ketones 15 H, Urine Occult Blood Negative, Urine Nitrite Negative, Urine Bilirubin Negative, Urine Urobilinogen Normal, Ur Leukocyte Esterase 100 H, Urine RBC 0 SEEN, Urine WBC 5-10 SEEN, Ur Squamous Epith Cells 5-10 SEEN, Urine Bacteria 1+, Urine Mucus 0 SEEN 06/16/24 19:06: Troponin I High Sens 15 Imaging Radiology Impression Chest X-Ray 06/16/24 17:32 IMPRESSION: No radiographic evidence of acute cardiopulmonary disease. Electronically Signed: Polo Freeman MD at 18:23 EDT , Brain CT 06/16/24 18:22 IMPRESSION: Volume loss with chronic white matter changes. No acute intracranial findings. Electronically Signed: Polo Freeman MD at 19:41 EDT , Assessment & Plan Assessment/Plan (1) Abnormal urinalysis: (2) Confusion: (3) Decreased oral intake: PLAN: Plan Abnormal urinalysis -Patient does get frequent UTIs -Culture sent -Ceftriaxone initiated and will continue -Has upcoming stent placement for right sided hydronephrosis so treatment is imperative Decreased oral intake/medication noncompliance -It sounds as if patient is forgetting to eat and drink -Lives alone -Was not dehydrated on presentation however ketones in the urine so I suspect she is in a ketotic state due to her decreased food intake -Dietitian is consulted -There does not seem to be an organic reason for this -Highly suspect this is more related to her worsening dementia -Add Ensure 4 times daily-chocolate Worsening dementia-type unknown -Family states that her memory is slowly worsening with time -Have not really noted acute confusion at this time and states that her memory issues are more in line with slow decline -They are considering alternatives for her living situation as she currently lives alone however they are unclear what their options are -Case management/social work consultation for assistance with discharge planning and resources DM-2 -Hold home glimepiride -Carb controlled diet -SSI as ordered -Accu-Cheks as ordered PAF -Continue home Coumadin -INR is subtherapeutic due to noncompliance next-patient is not on any rate controlling medications -Previous radiofrequency ablation in 2019 History of asthma/allergic rhinitis -Continue home inhalers -Continue home Singulair RAMESH -Patient is noncompliant at baseline with CPAP Hyperlipidemia -Continue home atorvastatin Diabetic neuropathy -Continue home gabapentin Right knee osteoarthritis -Tylenol as ordered -Affect mobility -PT/OT consultation DVT prophylaxis -INR is subtherapeutic so we will go with Lovenox 40 mg daily until therapeutic with INR greater than 2 CODE STATUS -DNR CCA okay for short-term intubation but no tracheostomy per discussion with patient prior to admission with family at bedside Charges/Coding Visit Charges Inpatient E&M: 06134 Init Hosp L2
--- NOTE | 2024-06-16 21:17 | EDS_ITS ---
HPI History of Present Illness Chief Complaint: General Illness Narrative Narrative: Patient is a 79-year-old female past medical history of pulmonary pretension, atrial flutter status post ablation, hyperlipidemia, hypertension, type 2 diabetes, RAMESH on CPAP, atrial fibrillation on warfarin who presents to the emergency department with chief complaint of increasing confusion. According to the patient's daughter at bedside she noted that for the past few days now she has noted that her mother has become more confused and notes that she has not taken her medications in several days. She states that she had her INR checked recently was told to increase her dose however once again she had not been taking her medications still. She states that she has had multiple hospitalizations and visits for not eating and drinking and dehydration. She states that today her mother called her several times and was asking for things that she normally does not ask for prompting them to bring her here for further evaluation management. They deny any falls or head trauma. [facility] Medical History History of complete heart block Other intervertebral disc degeneration, lumbar region Low back pain History of fall Non-pressure chronic ulcer of other part of left foot with fat layer exposed Pain in left foot Cardiac murmur Left knee sprain Falls Abnormal EKG Ulcer of right lower extremity with fat layer exposed Atrial flutter Obesity Pulmonary hypertension Subtherapeutic international normalized ratio (INR) Hyperlipidemia Type 2 diabetes mellitus Wears glasses Wears dentures Post-menopausal Sore on leg Arthritis Dietary restriction CPAP (continuous positive airway pressure) dependence Non-smoker Shortness of breath on exertion Cardiology follow-up encounter History of stress test History of echocardiogram Ureteral mass Hydronephrosis, right Fracture of left elbow Cervical strain, acute COVID-19 Essential hypertension Hyperlipidemia RAMESH (obstructive sleep apnea) Asthma DDD (degenerative disc disease) Shoulder dislocation Contact dermatitis and other eczema Allergic rhinitis 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 Obesity Diabetes mellitus Hypersomnia Other secondary pulmonary hypertension BMI 33.0-33.9,adult Hx of bladder infections halfway (current) use of anticoagulants Atrial fibrillation Home Medications ?Medication ?Instructions ?Recorded ?Last Taken ?Type warfarin 5 mg tablet 5 mg PO .COMPLEX blood thinner 11/18/18 05/04/24 History atorvastatin 10 mg tablet 10 mg PO QHS cholesterol 12/11/19 05/03/24 History gabapentin 300 mg capsule 300 mg PO BREAKFAST nerve pain 08/04/22 05/04/24 History gabapentin 300 mg capsule 600 mg PO QHS Neuropathy 08/04/22 05/03/24 History warfarin 2.5 mg tablet (Jantoven) 2.5 mg PO .COMPLEX blood thinner 12/30/23 01/16/24 History budesonide-formoterol HFA 160 2 puff inhalation BID asthma #10.2 01/20/24 05/04/24 Rx mcg-4.5 mcg/actuation aerosol grams inhaler (Symbicort) albuterol sulfate 90 mcg/actuation 2 puff inhalation Q4H PRN 03/04/24 Unknown Rx aerosol inhaler shortness of breath or wheezing #8.5 grams montelukast 10 mg tablet 10 mg PO QPM #30 tabs 03/04/24 05/04/24 Rx cholecalciferol (vitamin D3) 50 50 mcg PO DAILY 04/13/24 05/04/24 History mcg (2,000 unit) capsule magnesium oxide 250 mg PO DAILY SUPPLEMENT 04/13/24 05/04/24 History mecobalamin (vitamin B12) 1,000 1,000 mcg PO DAILY 04/13/24 05/04/24 History mcg chewable tablet oxybutynin chloride 10 mg 10 mg PO DAILY 04/13/24 Unknown History tablet,extended release 24 hr acetaminophen 500 mg tablet 1,000 mg (2 x 500 mg) PO Q8 PRN 05/06/24 Unknown Rx fever or pain #0 tabs cyclobenzaprine 5 mg tablet 10 mg PO BID 06/10/24 Unknown History glimepiride 2 mg tablet 2 mg PO BID 06/10/24 Unknown History oxycodone-acetaminophen 5 mg-325 1 tab PO QDAY PRN pain 06/10/24 Unknown History mg tablet Allergy/AdvReac Type Severity Reaction Status Date / Time amoxicillin Allergy Severe Hives Verified 06/16/24 14:14 aspirin Allergy Severe Hives, SOB Verified 06/16/24 14:14 Sulfa (Sulfonamide Allergy Severe Hives Verified 06/16/24 14:14 Antibiotics) Family History Mother Diabetes Father CAD (coronary artery disease) Sister Lung cancer Son Kidney stone Surgical History Presence of permanent cardiac pacemaker (04/01/19) S/P ablation of atrial flutter (04/01/19) History of cystoscopy Hx of right cataract extraction Hx of left cataract extraction History of kidney surgery History of appendectomy Social History household members: none housing: house number of children: 3 current occupational status: retired Smoking Status: Never smoker alcohol intake: never substance use type: does not use what type of physical activity do you participate in: none do you feel safe at home: Yes ROS ROS ED ROS Narrative Constitutional: Denies any fevers, chills, headaches, lightheadedness, dizziness Eyes: Denies any change of double vision blurry vision Cardiovascular: Denies chest pain or palpitations Respiratory: Denies coughing wheezing shortness of breath Abdomen: Denies abdominal pain nausea vomiting diarrhea : Denies any urinary symptoms Neurological: Complains of increased confusion per family at bedside as noted above denies any other numbness weakness or tingling Musculoskeletal: Denies back pain Skin: Denies rashes or lesions EXAM Physical Exam Narrative Exam Narrative: General: Patient was lying in bed rest comfortably did not appear to be in acute distress Head: Atraumatic, normocephalic Eyes: PERRL bilaterally, EOMI bilateral, no conjunctival injection noted Neck: Soft, supple, trach midline Cardiovascular: Regular rate and rhythm no murmurs gallops rubs noted Respiratory: Clear to auscultation bilaterally no rales rhonchi wheeze noted Abdomen: Soft, nondistended, no tenderness palpation, sounds present x 4 Extremities: +4/5 strength noted in the bilateral upper and lower extremities, no pedal edema noted on exam Neurological: Patient was followed commands knew that she was at [facility] but was confused on the year and the season which she normally would know per family member bedside Skin: Warm, dry, intact Const Vital Signs: 06/16/24 14:14 06/16/24 16:12 06/16/24 17:06 Temperature 97.4 F L 97.8 F Temperature Source Temporal Oral Pulse Rate 63 73 Respiratory Rate 18 21 H Respiratory Effort Respiratory Pattern Blood Pressure 138/104 H 133/90 H Blood Pressure Mean 115 104 Pulse Ox 100 97 Oxygen Delivery Method Room Air Room Air Room Air 06/16/24 17:21 06/16/24 18:16 06/16/24 18:30 Temperature Temperature Source Pulse Rate 102 H Respiratory Rate 20 H Respiratory Effort Normal Respiratory Pattern Normal Blood Pressure 157/72 H 159/138 H Blood Pressure Mean 100 146 Pulse Ox 96 Oxygen Delivery Method 06/16/24 18:30 06/16/24 18:45 06/16/24 19:00 Temperature Temperature Source Pulse Rate 70 62 Respiratory Rate 22 H 18 Respiratory Effort Respiratory Pattern Blood Pressure 159/138 H 158/81 H Blood Pressure Mean 146 104 Pulse Ox 100 97 Oxygen Delivery Method Room Air 06/16/24 19:15 06/16/24 19:30 06/16/24 19:45 Temperature Temperature Source Pulse Rate 61 64 71 Respiratory Rate 16 23 H 33 H Respiratory Effort Respiratory Pattern Blood Pressure 167/140 H Blood Pressure Mean 150 Pulse Ox 98 97 Oxygen Delivery Method 06/16/24 20:00 06/16/24 20:15 06/16/24 20:30 Temperature Temperature Source Pulse Rate 90 77 Respiratory Rate 21 H 16 Respiratory Effort Respiratory Pattern Blood Pressure 134/54 H 125/53 H Blood Pressure Mean 78 73 Pulse Ox 98 97 Oxygen Delivery Method Room Air 06/16/24 20:45 06/16/24 21:04 06/16/24 21:04 Temperature 97.8 F 97.8 F Temperature Source Temporal Pulse Rate 67 72 66 Respiratory Rate 21 H 20 H 26 H Respiratory Effort Respiratory Pattern Blood Pressure 116/90 H 116/90 H Blood Pressure Mean 98 98 Pulse Ox 95 97 Oxygen Delivery Method Room Air MDM MDM MDM Narrative Medical decision making narrative: Patient is a 79-year-old female who presented to the emergency department with chief complaint of increased confusion and not taking her medications daily. Patient will have a workup performed here on the differential diagnose includes but not limited to UTI, ACS, pneumonia, hypercapnia. Once workup is obtained and reviewed she will be reevaluated. Patient's CBC reviewed and showed no evidence leukocytosis white blood count normal 5.4, hemoglobin stable 13.1, platelet count was noted to be normal at 157. Patient's INR was noted be low at 1.4, sodium normal at 138, potassium normal 3.7, creatinine normal at 0.78. Patient's troponin was normal at 15 with delta troponin obtained as well noted to be 15. Patient's EKG showed a ventricular paced rhythm with a rate of 65 bpm no Sgarbossa criteria were met. Patient's proBNP was noted be 94, TSH of 2.11. Patient's urinalysis showed 100 leukocyte esterase negative nitrites, 5-10 white blood cells however there was noted be 5-10 squamous epithelial cells with 1+ bacteria this was sent for culture she was given a gram of Rocephin. Patient CT head and brain without contrast reviewed showed volume loss with chronic white matter changes. Patient's chest x-ray was reviewed as well and showed no radiographic evidence of acute cardiopulmonary disease. On reevaluation the patient given that she has increased confusion not remember taken daily medications she lives alone do believe she will warrant admission to the hospitalist service.. Did discuss case with hospitalist Dr. Martinez who will accept patient for admission. Patient and family numbers at bedside were notified with all question concerns answered. Lab Data Labs: Laboratory Results - last 24 hr 06/16/24 06/16/24 06/16/24 17:04 17:25 19:06 WBC 5.4 RBC 4.18 L Hgb 13.1 Hct 40.3 MCV 96.4 MCH 31.3 MCHC 32.5 RDW Std Deviation 43.8 RDW Coeff of Jason 12.3 Plt Count 157 MPV 9.6 Immature Gran % (Auto) 0.200 Neut % (Auto) 65.9 Lymph % (Auto) 23.4 [place] % (Auto) 7.0 Eos % (Auto) 2.8 Baso % (Auto) 0.7 Absolute Neuts (auto) 3.6 Absolute Lymphs (auto) 1.27 Nucleated RBC % 0 PT 16.8 H INR 1.4 APTT 30.6 Sodium 138 Potassium 3.7 Chloride 101 Carbon Dioxide 27.0 Anion Gap 10 BUN 11 Creatinine 0.78 Est GFR (MDRD) Af Amer 92 Est GFR (MDRD) Non-Af 76 BUN/Creatinine Ratio 14.1 Glucose 119 H Calcium 9.5 Troponin I High Sens 15 15 B-Natriuretic Peptide 94.9 TSH 2.110 Urine Color Yellow Urine Clarity Clear Urine pH 7.0 Ur Specific [place] 1.005 Urine Protein Negative Urine Glucose (UA) Normal Urine Ketones 15 H Urine Occult Blood Negative Urine Nitrite Negative Urine Bilirubin Negative Urine Urobilinogen Normal Ur Leukocyte Esterase 100 H Urine RBC 0 SEEN Urine WBC 5-10 SEEN Ur Squamous Epith Cells 5-10 SEEN Urine Bacteria 1+ Urine Mucus 0 SEEN Radiography Diagnostic Testing: Clinical Impression(s) from Imaging Studies Chest X-Ray 06/16/24 17:32 IMPRESSION: No radiographic evidence of acute cardiopulmonary disease. Electronically Signed: Polo Freeman MD at 18:23 EDT , Brain CT 06/16/24 18:22 IMPRESSION: Volume loss with chronic white matter changes. No acute intracranial findings. Electronically Signed: Polo Freeman MD at 19:41 EDT , Discharge Plan Triage Chief Complaint: General Illness ED Provider: Aiden Lr Dx/Rx/DC Orders Clinical Impression: Altered mental status, Acute UTI Prescriptions: No Action albuterol sulfate 90 mcg/actuation HFA aerosol inhaler 2 puff INHALATION Q4H PRN (Reason: shortness of breath or wheezing) Qty: 8.5 6RF Rx Instructions: administer with spacer montelukast 10 mg tablet 10 mg PO QPM Qty: 30 3RF oxybutynin chloride 10 mg tablet extended release 24hr 10 mg PO DAILY cholecalciferol (vitamin D3) 50 mcg (2,000 unit) capsule 50 mcg PO DAILY mecobalamin (vitamin B12) 1,000 mcg tablet,chewable 1,000 mcg PO DAILY glimepiride 2 mg tablet 2 mg PO BID oxycodone-acetaminophen 5-325 mg tablet 1 tab PO QDAY PRN (Reason: pain) cyclobenzaprine 5 mg tablet 10 mg PO BID warfarin 5 MG tablet 5 mg PO .COMPLEX Protocol: Dose Management Condition: Thursday Dose/Route: 2.5 mg Instruction: 1 x 2.5 mg tablet Condition: Thursday Dose/Route: 5 mg Instruction: 1 x 5 mg tablet Condition: Thursday Dose/Route: 5 mg Instruction: 1 x 5 mg tablet Condition: Thursday Dose/Route: 5 mg Instruction: 1 x 5 mg tablet Condition: Dose/Route: 5 mg Instruction: 1 x 5 mg tablet Condition: Thursday Dose/Route: 5 mg Instruction: 1 x 5 mg tablet Condition: Thursday Dose/Route: 2.5 mg Instruction: 1 x 2.5 mg tablet Protocol Text: Adjustment Start Date: Thursday06/14/24 INR Value: 1.8 INR Date: 06/14/24 Recheck Date: 06/21/24 Rx Instructions: 5 mg orally MOTUWETHUFR; atorvastatin 10 MG tablet 10 mg PO QHS gabapentin 300 mg capsule 600 mg PO QHS Patient Comments: Take 2 capsules by mouth daily at bedtime AND 1 capsule every morning. gabapentin 300 mg capsule 300 mg PO BREAKFAST Patient Comments: Take 2 capsules by mouth daily at bedtime AND 1 capsule every morning. Rx Instructions: 300 mg orally; warfarin [Octtoven] 2.5 mg tablet 2.5 mg PO .COMPLEX Protocol: Dose Management Condition: Thursday Dose/Route: 2.5 mg Instruction: 1 x 2.5 mg tablet Condition: Thursday Dose/Route: 5 mg Instruction: 1 x 5 mg tablet Condition: Thursday Dose/Route: 5 mg Instruction: 1 x 5 mg tablet Condition: Thursday Dose/Route: 5 mg Instruction: 1 x 5 mg tablet Condition: Dose/Route: 5 mg Instruction: 1 x 5 mg tablet Condition: Thursday Dose/Route: 5 mg Instruction: 1 x 5 mg tablet Condition: Thursday Dose/Route: 2.5 mg Instruction: 1 x 2.5 mg tablet Protocol Text: Adjustment Start Date: Thursday06/14/24 INR Value: 1.8 INR Date: 06/14/24 Recheck Date: 06/21/24 Rx Instructions: 2.5 mg orally SUSA; magnesium oxide 400 mg magnesium tablet 250 mg PO DAILY acetaminophen 500 mg Tablet 1,000 mg PO Q8 PRN (Reason: fever or pain) Qty: 0 0RF Symbicort 160-4.5 mcg/actuation HFA aerosol inhaler 2 puff INHALATION BID Qty: 10.2 11RF Primary Care Provider: Ro Reed Referrals: Ro Reed MD [Primary Care Provider] - Print Language: Mauritanian
[2024-06-16] MEDS: Ceftriaxone 1 GM/50 ML BAG IV (21:23)
[2024-06-16 23:55] LABS: ALB/GLOB Ratio 0.8 RATIO (0.9-2.4); AST(SGOT) 26 U/L (15-37); Alanine Aminotransfer ALT/SGPT 18 U/L (13-56); Albumin, Serum 3.6 g/dL (3.2-5.0); Alkaline Phosphatase 104 U/L (45-117); Globulin 4.3 g/dL (2.2-4.2); Lipase < 10 U/L (13-75); Protein, Total 7.9 g/dL (6.4-8.2)
[2024-06-17] VITALS (11 sets, daily range): BP systolic 117–144; BP diastolic 53–72; PULSE 61–84; RESP 14–16; TEMP 36.2–36.8; O2SAT 96–99
[2024-06-17 07:06] LABS: Bedside Glucose 116 mg/dL (74-106)
[2024-06-17 07:08] LABS: Absolute Lymphocyte Count 1.02 X10^3/uL (0.83-4.51); Absolute Neutrophil Count 2.8 X10^3/uL (2.0-7.7); Basophil# 0.04 X10^3/uL; Basophil% 0.9 % (0-1); Eosinophil# 0.23 X10^3/uL; Eosinophils% 5.2 % (0-5); Hematocrit 36.4 % (37-47); Hemoglobin 12.1 g/dL (12.0-15.0); Lymphocyte # 1.02 X10^3/ul (0.83-4.51); Lymphocyte % 22.9 % (19-41); Mean Corp Hgb Conc 33.2 g/dL (32-36); Mean Corpuscular Hgb 31.9 pg (27.0-32.0); Mean Platelet Vol. 9.7 fl (6.2-12.0); NRBC Flagged by Analyzer 0 % (0-5); Neutrophil # 2.75 X10^3/uL (2.7-7.7); Neutrophil % 61.8 % (47-70); Platelet Count 130 K/mm3 (150-450); RBC Distribution Width CV 12.2 % (11.6-14.6); RBC Distribution Width SD 42.7 fl (35.1-43.9); Red Blood Count 3.79 M/mm3 (4.2-5.4); White Blood Count 4.5 K/mm3 (4.4-11.0)
[2024-06-17] MEDS: Albuterol 2.5 MG/3 ML VIAL.NEB. INHALATION ×3 (07:08→18:41)
[2024-06-17] MEDS: Budesonide Respules 0.5 MG/2 ML AMPUL.NEB. INHALATION ×2 (07:08→18:41)
--- NOTE | 2024-06-17 07:13 | PCM.PN.HOSP ---
Reason for Visit Reason for Visit: Diagnoses Disorientation, unspecified (06/16/24) Other symptoms and signs concerning food and fluid intake (06/16/24) Unspecified abnormal findings in urine (06/16/24) Subjective Subjective Patient with no acute events overnight per self and per nursing report. Patient today is answering most questions appropriately although cannot give month. She does have underlying chronic memory impairment and suspect this is more near her baseline than when she presented. Discussed plan of care which included continued evaluation and treatment of concern for UTI possibly contributing to increased confusion above her baseline. Patient is very eager for discharge and notes concern over her animal at home. Patient denies fevers, chills, nausea, emesis, abdominal pain, chest pain or dyspnea. Objective Data Objective Data Vital Signs: Vital Signs Temp Pulse Resp BP Pulse Ox O2 Del Method 97.1 F L 61 15 141/53 H 97 Room Air 06/17/24 03:32 06/17/24 03:32 06/17/24 03:32 06/17/24 03:32 06/17/24 03:32 06/17/24 03:59 Oxygen Delivery Method Room Air Weight: 182 lb Body Mass Index (BMI) 27.6 Intake & Output: Intake and Output for Last 24 Hours 06/15/24 06/16/24 06/17/24 23:59 23:59 23:59 Intake Total 1050 / 1050 Output Total 700 / 700 Balance 350 / 350 Lab / Micro Data 06/17/24 06:33 06/17/24 06:33 Labs: Laboratory Results - last 24 hr 06/16/24 17:04: WBC 5.4, RBC 4.18 L, Hgb 13.1, Hct 40.3, MCV 96.4, MCH 31.3, MCHC 32.5, RDW Std Deviation 43.8, RDW Coeff of Jason 12.3, Plt Count 157, MPV 9.6, Immature Gran % (Auto) 0.200, Neut % (Auto) 65.9, Lymph % (Auto) 23.4, [place] % (Auto) 7.0, Eos % (Auto) 2.8, Baso % (Auto) 0.7, Absolute Neuts (auto) 3.6, Absolute Lymphs (auto) 1.27, Nucleated RBC % 0, PT 16.8 H, INR 1.4, APTT 30.6, Sodium 138, Potassium 3.7, Chloride 101, Carbon Dioxide 27.0, Anion Gap 10, BUN 11, Creatinine 0.78, Est GFR (MDRD) Af Amer 92, Est GFR (MDRD) Non-Af 76, BUN/Creatinine Ratio 14.1, Glucose 119 H, Calcium 9.5, Total Bilirubin 1.40 H, AST 26, ALT 18, Alkaline Phosphatase 104, Troponin I High Sens 15, B-Natriuretic Peptide 94.9, Total Protein 7.9, Albumin 3.6, Globulin 4.3 H, Albumin/Globulin Ratio 0.8 L, Lipase < 10 L, TSH 2.110 06/16/24 17:25: Urine Color Yellow, Urine Clarity Clear, Urine pH 7.0, Ur Specific [place] 1.005, Urine Protein Negative, Urine Glucose (UA) Normal, Urine Ketones 15 H, Urine Occult Blood Negative, Urine Nitrite Negative, Urine Bilirubin Negative, Urine Urobilinogen Normal, Ur Leukocyte Esterase 100 H, Urine RBC 0 SEEN, Urine WBC 5-10 SEEN, Ur Squamous Epith Cells 5-10 SEEN, Urine Bacteria 1+, Urine Mucus 0 SEEN 06/16/24 19:06: Troponin I High Sens 15 06/17/24 06:33: WBC 4.5, RBC 3.79 L, Hgb 12.1, Hct 36.4 L, MCV 96.0, MCH 31.9, MCHC 33.2, RDW Std Deviation 42.7, RDW Coeff of Jason 12.2, Plt Count 130 L, MPV 9.7, Immature Gran % (Auto) 0.200, Neut % (Auto) 61.8, Lymph % (Auto) 22.9, [place] % (Auto) 9.0, Eos % (Auto) 5.2 H, Baso % (Auto) 0.9, Absolute Neuts (auto) 2.8, Absolute Lymphs (auto) 1.02, Nucleated RBC % 0 06/17/24 06:37: POC Glucose 116 H Radiography Diagnostic Testing: Radiology Impression Chest X-Ray 06/16/24 17:32 IMPRESSION: No radiographic evidence of acute cardiopulmonary disease. Electronically Signed: Polo Freeman MD at 18:23 EDT Reading Location ID and State: [facility] / [place] Tel , Service support , Brain CT 06/16/24 18:22 IMPRESSION: Volume loss with chronic white matter changes. No acute intracranial findings. Electronically Signed: Polo Freeman MD at 19:41 EDT Reading Location ID and State: [facility] / [place] Tel , Service support , Physical Exam Narrative Physical Examination: General: Awake, alert, oriented to self, place, president, slow to answer year and cannot give month, notes feeling improved, reports wanting to go home secondary to caring for her canine. Skin: Normal color, normal turgor, no icterus, no cyanosis except various staged ecchymoses, BL LE stasis changes. HEENT: AT/NC, EOMI, PERRLA, MMM. Lungs: Mildly diminished, greater bases, poor effort, no rales, ronchi or wheezing. Heart: Regular rate and rhythm; no gallop, rub audible. Abdomen: Soft, obese, NTTP, no marked distention, no obvious evidence of HSM. Extremities: No cyanosis, no clubbing, bilateral ankle to distal villagomez chronic nonpitting edema. Neurological: Patient awake, alert, oriented as noted, cognitive function currently appears baseline w/ chronic memory impairment, pupils equally reactive to light and accommodation, cranial nerves grossly normal, moving all 4 extremities, strength moderately globally decreased. Psychiatric: Affect appears fatigued but alert and talkative, no acute evidence of depressive or anxiety feelings. Assessment & Plan Assessment/Plan (1) Abnormal urinalysis: (2) Confusion: (3) Decreased oral intake: PLAN: Plan The patient is a 79 y/o F w/ PMHx: Chronic Thrombocytopenia, PAF/Flutter s/p ablation, Obesity, Asthma, Allergic Rhinitis, HTN, HLD, Hx complete HB s/p pacemaker, RAMESH, CKD stage III unclear subtype, Diabetes mellitus type II, Hx Frequent Complicated UTIs w/ persistent history of bilateral hydroureteronephrosis with previous history of distal ureteral stricture following with Dr. Samaniego who presents to the [facility] ED on 06/16/24 with history of fatigue, malaise, failure to eat or drink and not taking any of her medications over the last 2 to 3 days with increased memory impairment/confusion with recent UTI diagnosis started on antibiotics unfortunately not taking these however. #1. Acute Encephalopathy complicated by underlying chronic memory impairment with recent concern for underlying dementia, unclear type with unclear behavioral disturbance history diagnosed with outpatient acute complicated urinary tract infection with frequent UTI history with [facility] presentation with abnormal UA, questionable acute complicated UTI: Admitted to medical surgical floor, UA in the ED mildly remarkable but not severe, pending urine culture, continue IVFs, monitor I/Os, continue IV Rocephin with prior cultures notable for E. coli pansensitive w/ transition as able pending sensitivities and speciation. Low threshold if necessary to repeat CT abdomen and pelvis if felt appropriate given history the patient has been following closely outpatient already with urology. Holding sedated regimen including cyclobenzaprine as well as Percocet until continued clinical improvement evident but would be beneficial to be off cyclobenzaprine chronically. PT/OT/case management consultation for discharge planning. #2. Adult failure to thrive with decreased oral intake both food/liquid as well as medication increasing noncompliance suspect secondary to worsening memory impairments with suspected underlying dementia unclear type with unclear behavioral disturbance history: Family reporting worsening memory over time, currently living alone although family is concerned and attempting consider alternatives, PT/OT/case management consulted for discharge planning. #3. Diabetes mellitus type II with chronic neuropathy: Hold oral home regimen, ADA diet, accu checks w/ ISS, continue chronic home gabapentin regimen. #4. Hypertension: Noted history, per current list not on regimen, BP currently normal range thus we will continue to monitor. #5. Hyperlipidemia: We will continue patient on statin therapy. #6. Chronic Kidney Disease Stage III, unclear subtype per previous GFR trending although appears to have vacillated: Admission BUN/Cr 11/0.78, GFR 76 w/ baseline creatinine 0.7-1,repeat 06/17/24 BUN/Cr 11/0.75, GFR 80, continue to trend. #7. PAF/flutter: Status post previous ablation, not on any rate or rhythm agent, INR subtherapeutic upon presentation likely secondary to noncompliance, continue with INR trending. #8. History complete heart block: Status post pacemaker placement. #9. Obesity: Weight loss and lifestyle changes encouraged. #10. Chronic asthma with allergic rhinitis: Temporally holding home inhaler in the interim will maintain on ATC budesonide therapy, PRN albuterol, HOB, IS parameters, continue patient home montelukast regimen. #11. Chronic thrombocytopenia, unclear specific etiology: Admission platelets 157, repeat 06/17/24 platelets 130, baseline more recently appears 110-140 range, continue to trend. #12. RAMESH: Noncompliant with PAP therapy. #13. DVT prophylaxis: Will continue Coumadin with INR trending, subtherapeutic upon presentation secondary to medication noncompliance. #14. CODE status: DNR-CCA, amenable to short-term intubation but no tracheostomy. Charges/Coding Visit Charges Inpatient E&M: 67326 Subs Hosp L2
[2024-06-17 08:01] LABS: ALB/GLOB Ratio 0.8 RATIO (0.9-2.4); AST(SGOT) 21 U/L (15-37); Alanine Aminotransfer ALT/SGPT 13 U/L (13-56); Alkaline Phosphatase 90 U/L (45-117); Anion Gap 10 (5-15); BUN 11 mg/dL (7-18); BUN/Creat Ratio 14.7 RATIO (10-20); Calcium,Total 8.8 mg/dL (8.5-10.1); Chloride 105 mmol/L (98-107); Creatinine, Serum 0.75 mg/dL (0.55-1.02); EST Glomerular Filtration Rate 80 mL/min (>60); Est Glom Filt Rate - Afr Amer 96 mL/min (>60); Estimated Creatinine Clearance 66.34 ml/min; Globulin 3.7 g/dL (2.2-4.2); Glucose 121 mg/dL (74-106); Magnesium 1.4 mg/dL (1.6-2.6); Phosphorus 2.4 mg/dL (2.5-4.9); Potassium 3.6 mmol/L (3.5-5.1); Protein, Total 6.7 g/dL (6.4-8.2); Sodium Level 140 mmol/L (136-145)
--- NOTE | 2024-06-17 08:47 | CASEMGMT ---
Pt has directives on chart naming dtr Brooke as agent. BRITTANY Lara
[2024-06-17 09:09] LABS: International Normalized Ratio 1.4; Prothrombin Time (Protime)PT. 17.3 SECONDS (11.7-14.9)
[2024-06-17] MEDS: Tolterodine Tartrate 2 MG CAP.SA PO (11:08)
[2024-06-17] MEDS: Enoxaparin 40 MG/0.4 ML Syringe SC (11:08)
[2024-06-17] MEDS: Cholecalciferol (VIT D3) 25 MCG TABLET (1,000 UNITS) 50 MCG PO (11:09)
[2024-06-17] MEDS: Gabapentin 300 MG Capsule PO (11:34)
[2024-06-17 11:57] LABS: Bedside Glucose 162 mg/dL (74-106)
[2024-06-17] MEDS: Insulin Lispro 100 UNIT/ML INSULN.PEN SC ×2 (13:11→17:32)
[2024-06-17] MEDS: Magnesium Sulfate 2 GM in Dextrose 5%-Water (100mL Bag) 100 ML IV (13:45)
[2024-06-17] MEDS: Potassium Phosphate 21 MM in 0.9% Normal Saline (250mL Bag) 250 ML 84 MM IV (14:00)
--- NOTE | 2024-06-17 15:41 | CASEMGMT ---
Social Work- SW met with pt to discuss preference at d/c. Pt states she feels she is safe at home and can d/c home, no needs. SW provided education on safety concerns. SW left a list for private duty and care patrol. Pt dtr will be here after 5 and will review. SW left SW phone number and offered to meet Thursday prior to d/c. Pt is adamant that she will d/c home. SW will remain available to follow. BRITTANY Lara
--- NOTE | 2024-06-17 15:54 | CASEMGMT ---
Addendum entered by Anthony Higginbotham 06/17/24 16:04: VLAD TEMPLE spoke w/pt and she voiced wishes to dc home w/[facility]. Pt reports her daughter manages her medications and that she receives Meals on Wheels. She reports having all DME needed, including [facility], and denies other dc needs at this time. Original Note: VLAD TEMPLE NOTE: Therapy evals reviewed. No additional therapy recommended. Pt is active w/[facility], SN only. THOMAS order entered. Per Dr Fisher, anticipates pt discharging home tomorrow. Starr @ [facility] made aware. She states [facility] slated for Thursday. Info entered into DC plan. Grabiel ALMEIDA RN, CM
--- NOTE | 2024-06-17 16:14 | CASEMGMT ---
Met with patient to complete DELATORRE form. DELATORRE form explained to patient who voiced understanding and signed form. Original form placed in pt?s chart and copy provided to patient. Elvia Rascon, Discharge Planning Asst
[2024-06-17 17:19] LABS: Bedside Glucose 161 mg/dL (74-106)
[2024-06-17] MEDS: Gabapentin 300 MG Capsule 600 MG PO (22:08)
[2024-06-17] MEDS: Atorvastatin Calcium 10 MG Tablet PO (22:08)
[2024-06-17] MEDS: Ceftriaxone 1 GM/50 ML BAG IV (22:08)
[2024-06-17 23:45] LABS: Bedside Glucose 120 mg/dL (74-106)
[2024-06-18 02:35] VITALS: BP 142/66; PULSE 64; RESP 16; TEMP 36.7; O2SAT 99
[2024-06-18 06:11] LABS: Absolute Lymphocyte Count 0.92 X10^3/uL (0.83-4.51); Absolute Neutrophil Count 1.9 X10^3/uL (2.0-7.7); Basophil# 0.04 X10^3/uL; Basophil% 1.2 % (0-1); Eosinophil# 0.24 X10^3/uL; Eosinophils% 6.9 % (0-5); Hematocrit 35.2 % (37-47); Hemoglobin 11.8 g/dL (12.0-15.0); Lymphocyte # 0.92 X10^3/ul (0.83-4.51); Lymphocyte % 26.5 % (19-41); Mean Corp Hgb Conc 33.5 g/dL (32-36); Mean Corpuscular Hgb 32.3 pg (27.0-32.0); Mean Corpuscular Volume 96.4 fL (81-99); Mean Platelet Vol. 9.8 fl (6.2-12.0); Monocyte# 0.39 X10^3/uL; Monocyte% 11.2 % (0-10); NRBC Flagged by Analyzer 0 % (0-5); Neutrophil # 1.88 X10^3/uL (2.7-7.7); Neutrophil % 54.2 % (47-70); Platelet Count 129 K/mm3 (150-450); RBC Distribution Width CV 12.3 % (11.6-14.6); RBC Distribution Width SD 43.8 fl (35.1-43.9); Red Blood Count 3.65 M/mm3 (4.2-5.4); White Blood Count 3.5 K/mm3 (4.4-11.0)
--- NOTE | 2024-06-18 06:52 | PCM.PN.HOSP ---
Reason for Visit Reason for Visit: Diagnoses Disorientation, unspecified (06/17/24) Other symptoms and signs concerning food and fluid intake (06/17/24) Unspecified abnormal findings in urine (06/17/24) Objective Data Objective Data Vital Signs: Vital Signs Temp Pulse Resp BP Pulse Ox O2 Del Method 98.1 F 64 16 142/66 H 99 Room Air 06/18/24 02:35 06/18/24 02:35 06/18/24 02:35 06/18/24 02:35 06/18/24 02:35 06/18/24 02:35 Oxygen Delivery Method Room Air Weight: 182 lb Body Mass Index (BMI) 27.6 Intake & Output: Intake and Output for Last 24 Hours 06/16/24 06/17/24 06/18/24 23:59 23:59 23:59 Intake Total 1050 / 1050 2439 / 2839 700 / 700 Output Total 700 / 700 450 / 450 Balance 350 / 350 2439 / 2389 250 / 250 Lab / Micro Data 06/18/24 05:41 06/17/24 06:33 Labs: Laboratory Results - last 24 hr 06/16/24 17:04: Sodium 138, Potassium 3.7, Chloride 101, Carbon Dioxide 27.0, Anion Gap 10, BUN 11, Creatinine 0.78, Est GFR (MDRD) Af Amer 92, Est GFR (MDRD) Non-Af 76, BUN/Creatinine Ratio 14.1, Glucose 119 H, Calcium 9.5, Total Bilirubin 1.40 H, AST 26, ALT 18, Alkaline Phosphatase 104, Total Protein 7.9, Albumin 3.6, Globulin 4.3 H, Albumin/Globulin Ratio 0.8 L, Lipase < 10 L 06/16/24 19:06: Troponin I High Sens 15 06/17/24 06:33: WBC 4.5, RBC 3.79 L, Hgb 12.1, Hct 36.4 L, MCV 96.0, MCH 31.9, MCHC 33.2, RDW Std Deviation 42.7, RDW Coeff of Jason 12.2, Plt Count 130 L, MPV 9.7, Immature Gran % (Auto) 0.200, Neut % (Auto) 61.8, Lymph % (Auto) 22.9, [place] % (Auto) 9.0, Eos % (Auto) 5.2 H, Baso % (Auto) 0.9, Absolute Neuts (auto) 2.8, Absolute Lymphs (auto) 1.02, Nucleated RBC % 0, PT 17.3 H, INR 1.4, Sodium 140, Potassium 3.6, Chloride 105, Carbon Dioxide 25.0, Anion Gap 10, BUN 11, Creatinine 0.75, Estim Creat Clear Calc 66.34, Est GFR (MDRD) Af Amer 96, Est GFR (MDRD) Non-Af 80, BUN/Creatinine Ratio 14.7, Glucose 121 H, Calcium 8.8, Phosphorus 2.4 L, Magnesium 1.4 L, Total Bilirubin 0.90, AST 21, ALT 13, Alkaline Phosphatase 90, Total Protein 6.7, Albumin 3.0 L, Globulin 3.7, Albumin/Globulin Ratio 0.8 L 06/17/24 06:37: POC Glucose 116 H 06/17/24 11:36: POC Glucose 162 H 06/17/24 17:02: POC Glucose 161 H 06/17/24 22:05: POC Glucose 120 H 06/18/24 05:41: WBC 3.5 L, RBC 3.65 L, Hgb 11.8 L, Hct 35.2 L, MCV 96.4, MCH 32.3 H, MCHC 33.5, RDW Std Deviation 43.8, RDW Coeff of Jason 12.3, Plt Count 129 L, MPV 9.8, Immature Gran % (Auto) 0.000, Neut % (Auto) 54.2, Lymph % (Auto) 26.5, [place] % (Auto) 11.2 H, Eos % (Auto) 6.9 H, Baso % (Auto) 1.2 H, Absolute Neuts (auto) 1.9 L, Absolute Lymphs (auto) 0.92, Nucleated RBC % 0 Physical Exam Narrative Physical Examination: General: Awake, alert, oriented to self, place, president, slow to answer year and cannot give month, notes feeling improved, reports wanting to go home secondary to caring for her canine. Skin: Normal color, normal turgor, no icterus, no cyanosis except various staged ecchymoses, BL LE stasis changes. HEENT: AT/NC, EOMI, PERRLA, MMM. Lungs: Mildly diminished, greater bases, poor effort, no rales, ronchi or wheezing. Heart: Regular rate and rhythm; no gallop, rub audible. Abdomen: Soft, obese, NTTP, no marked distention, no obvious evidence of HSM. Extremities: No cyanosis, no clubbing, bilateral ankle to distal villagomez chronic nonpitting edema. Neurological: Patient awake, alert, oriented as noted, cognitive function currently appears baseline w/ chronic memory impairment, pupils equally reactive to light and accommodation, cranial nerves grossly normal, moving all 4 extremities, strength moderately globally decreased. Psychiatric: Affect appears fatigued but alert and talkative, no acute evidence of depressive or anxiety feelings. Assessment & Plan Assessment/Plan (1) Abnormal urinalysis: (2) Confusion: (3) Decreased oral intake: PLAN: Plan The patient is a 79 y/o F w/ PMHx: Chronic Thrombocytopenia, PAF/Flutter s/p ablation, Obesity, Asthma, Allergic Rhinitis, HTN, HLD, Hx complete HB s/p pacemaker, RAMESH, CKD stage III unclear subtype, Diabetes mellitus type II, Hx Frequent Complicated UTIs w/ persistent history of bilateral hydroureteronephrosis with previous history of distal ureteral stricture following with Dr. Samaniego who presents to the [facility] ED on 06/16/24 with history of fatigue, malaise, failure to eat or drink and not taking any of her medications over the last 2 to 3 days with increased memory impairment/confusion with recent UTI diagnosis started on antibiotics unfortunately not taking these however. #1. Acute Encephalopathy complicated by underlying chronic memory impairment with recent concern for underlying dementia, unclear type with unclear behavioral disturbance history diagnosed with outpatient acute complicated urinary tract infection with frequent UTI history with [facility] presentation with abnormal UA, questionable acute complicated UTI: Admitted to medical surgical floor, UA in the ED mildly remarkable but not severe, pending urine culture, continue IVFs, monitor I/Os, continue IV Rocephin with prior cultures notable for E. coli pansensitive w/ transition as able pending sensitivities and speciation. Low threshold if necessary to repeat CT abdomen and pelvis if felt appropriate given history the patient has been following closely outpatient already with urology. Holding sedated regimen including cyclobenzaprine as well as Percocet until continued clinical improvement evident but would be beneficial to be off cyclobenzaprine chronically. PT/OT/case management consultation for discharge planning. #2. Adult failure to thrive with decreased oral intake both food/liquid as well as medication increasing noncompliance suspect secondary to worsening memory impairments with suspected underlying dementia unclear type with unclear behavioral disturbance history: Family reporting worsening memory over time, currently living alone although family is concerned and attempting consider alternatives, PT/OT/case management consulted for discharge planning. #3. Diabetes mellitus type II with chronic neuropathy: Hold oral home regimen, ADA diet, accu checks w/ ISS, continue chronic home gabapentin regimen. #4. Hypertension: Noted history, per current list not on regimen, BP currently normal range thus we will continue to monitor. #5. Hyperlipidemia: We will continue patient on statin therapy. #6. Chronic Kidney Disease Stage III, unclear subtype per previous GFR trending although appears to have vacillated: Admission BUN/Cr 11/0.78, GFR 76 w/ baseline creatinine 0.7-1,repeat 06/17/24 BUN/Cr 11/0.75, GFR 80, continue to trend. #7. PAF/flutter: Status post previous ablation, not on any rate or rhythm agent, INR subtherapeutic upon presentation likely secondary to noncompliance, continue with INR trending. #8. History complete heart block: Status post pacemaker placement. #9. Obesity: Weight loss and lifestyle changes encouraged. #10. Chronic asthma with allergic rhinitis: Temporally holding home inhaler in the interim will maintain on ATC budesonide therapy, PRN albuterol, HOB, IS parameters, continue patient home montelukast regimen. #11. Chronic thrombocytopenia, unclear specific etiology: Admission platelets 157, repeat 06/17/24 platelets 130, baseline more recently appears 110-140 range, continue to trend. #12. RAMESH: Noncompliant with PAP therapy. #13. DVT prophylaxis: Will continue Coumadin with INR trending, subtherapeutic upon presentation secondary to medication noncompliance. #14. CODE status: DNR-CCA, amenable to short-term intubation but no tracheostomy.
[2024-06-18 06:54] LABS: ALB/GLOB Ratio 0.8 RATIO (0.9-2.4); AST(SGOT) 19 U/L (15-37); Alanine Aminotransfer ALT/SGPT 16 U/L (13-56); Albumin, Serum 2.9 g/dL (3.2-5.0); Alkaline Phosphatase 89 U/L (45-117); Anion Gap 7 (5-15); BUN 12 mg/dL (7-18); Calcium,Total 9.2 mg/dL (8.5-10.1); Chloride 106 mmol/L (98-107); EST Glomerular Filtration Rate 74 mL/min (>60); Est Glom Filt Rate - Afr Amer 90 mL/min (>60); Estimated Creatinine Clearance 66.34 ml/min; Globulin 3.5 g/dL (2.2-4.2); Glucose 126 mg/dL (74-106); Magnesium 1.6 mg/dL (1.6-2.6); Potassium 3.6 mmol/L (3.5-5.1); Protein, Total 6.4 g/dL (6.4-8.2); Sodium Level 139 mmol/L (136-145)
[2024-06-18 07:03] LABS: Bedside Glucose 119 mg/dL (74-106)
[2024-06-18 07:53] VITALS: BP 140/69; PULSE 63; RESP 16; TEMP 37.1; O2SAT 100
[2024-06-18 07:55] VITALS: RESP 18
[2024-06-18] MEDS: Gabapentin 300 MG Capsule PO (08:13)
[2024-06-18] MEDS: Tolterodine Tartrate 2 MG CAP.SA PO (08:13)
[2024-06-18] MEDS: Cholecalciferol (VIT D3) 25 MCG TABLET (1,000 UNITS) 50 MCG PO (08:14)
[2024-06-18 08:21] LABS: Phosphorus 3.8 mg/dL (2.5-4.9)
[2024-06-18 08:53] VITALS: O2SAT 95
--- NOTE | 2024-06-18 10:55 | PCM.DC.SUM ---
Providers Date of Admission: 06/17/24 Date of Discharge: 06/18/24 Primary Care Physician: Dr. Ro Reed MD Reason For Visit: CONFUSION AND ABN UA Diagnosis Discharge Diagnosis (1) Abnormal urinalysis: Status: Acute Code(s): R82.90 - Unspecified abnormal findings in urine (2) Confusion: Status: Acute Code(s): R41.0 - Disorientation, unspecified (3) Decreased oral intake: Status: Acute Code(s): R63.8 - Other symptoms and signs concerning food and fluid intake Plan: DISCHARGE DIAGNOSES: #1. Acute Encephalopathy complicated by underlying chronic memory impairment with recent concern for underlying dementia, unclear type with unclear behavioral disturbance history diagnosed with outpatient acute complicated urinary tract infection with frequent UTI history HOWEVER NO GROWTH ON URINE CULTURE, THUS UTI RULED OUT #2. Adult failure to thrive with decreased oral intake both food/liquid as well as medication increasing noncompliance suspect secondary to worsening memory impairments with suspected underlying dementia unclear type with unclear behavioral disturbance history #3. Diabetes mellitus type II with chronic neuropathy #4. Hypertension #5. Hyperlipidemia #6. Chronic Kidney Disease Stage III, unclear subtype per previous GFR trending although appears to have vacillated #7. PAF/flutter #8. History complete heart block #9. Obesity #10. Chronic asthma with allergic rhinitis #11. Chronic thrombocytopenia, unclear specific etiology #12. RAMESH, Noncompliant with PAP therapy. #13. CODE status: DNR-CCA, amenable to short-term intubation but no tracheostomy. Medications at Discharge Home Medications warfarin 5 mg tablet 5 mg PO .COMPLEX blood thinner 11/18/18 atorvastatin 10 mg tablet 10 mg PO QHS cholesterol 12/11/19 gabapentin 300 mg capsule 300 mg PO BREAKFAST nerve pain 08/04/22 gabapentin 300 mg capsule 600 mg PO QHS Neuropathy 08/04/22 warfarin 2.5 mg tablet (Jantoven) 2.5 mg PO .COMPLEX blood thinner 12/30/23 budesonide-formoterol HFA 160 mcg-4.5 mcg/actuation aerosol inhaler (Symbicort) 2 puff inhalation BID asthma #10.2 grams 01/20/24 albuterol sulfate 90 mcg/actuation aerosol inhaler 2 puff inhalation Q4H PRN shortness of breath or wheezing #8.5 grams 03/04/24 montelukast 10 mg tablet 10 mg PO QPM #30 tabs 03/04/24 cholecalciferol (vitamin D3) 50 mcg (2,000 unit) capsule 50 mcg PO DAILY 04/13/24 magnesium oxide 250 mg PO DAILY SUPPLEMENT 04/13/24 mecobalamin (vitamin B12) 1,000 mcg chewable tablet 1,000 mcg PO DAILY 04/13/24 oxybutynin chloride 10 mg tablet,extended release 24 hr 10 mg PO DAILY 04/13/24 acetaminophen 500 mg tablet 1,000 mg (2 x 500 mg) PO Q8 PRN fever or pain #0 tabs 05/06/24 glimepiride 2 mg tablet 2 mg PO BID 06/10/24 oxycodone-acetaminophen 5 mg-325 mg tablet 1 tab PO QDAY PRN pain 06/10/24 Hospital Course Operations None Procedures EKG Summary of Care Provided Minutes Spent on Discharge: 35 Hospital Course: The patient is a 79 y/o F w/ PMHx: Chronic Thrombocytopenia, PAF/Flutter s/p ablation, Obesity, Asthma, Allergic Rhinitis, HTN, HLD, Hx complete HB s/p pacemaker, RAMESH, CKD stage III unclear subtype, Diabetes mellitus type II, Hx Frequent Complicated UTIs w/ persistent history of bilateral hydroureteronephrosis with previous history of distal ureteral stricture following with Dr. Samaniego who presented to the [facility] ED on 06/16/24 with history of fatigue, malaise, failure to eat or drink and not taking any of her medications over the last 2 to 3 days with increased memory impairment/confusion with recent UTI diagnosis started on antibiotics unfortunately not taking these however. Admitted to medical surgical floor, UA in the ED mildly remarkable but not severe, pending urine culture, continue IVFs, monitor I/Os, continued on IV Rocephin with prior cultures notable for E. coli pansensitive. Held sedative cyclobenzaprine regimen w/ recommended complete discontinuation upon discharge. UCx resulted without growth thus abx therapy discontinued and UTI ruled out. Unfortunately per discussion with CM/SW patient not candidate for SNF or AL thus arranged ongoing home health/meals on wheels which was reviewed per SM/CW with daughter. Encouraged early follow-up with PCP to have formal memory testing/evaluation of dementia. Encouraged white board for her kitchen where she is encouraged to daily check off if she has taken her medications and also eating the appropriate meals. Given clinical stablity, patient discharged to home with home health. Also recommended ongoing INR checks per outpatient previously arranged routine regimen. DAY OF DISCHARGE PROGRESS NOTE: Subjective: Patient without acute event overnight per self and nursing report. Patient remains well with no overt worsened memory impairment and able to carry on appropriate conversation and ambulate in the room with rolling walker. Patient denies fever, chills, nausea, emesis, abdominal pain, chest pain or dyspnea. Patient agreeable to discharge to home with home health and discussed that unfortunately assisted living versus skilled is not an option at this point. Patient will be discharged with follow-up with primary care physician within 3-5 days to review admission and proceed to attempted de-escalate sedate of medications as well as ongoing memory testing. Objective: T98.7, heart rate 63, BP 140/69, respiratory rate 16, on her percent room air. Physical Examination: General: Awake, alert, oriented to self, place, year, can give months today which is improved from previously, initially in the bathroom but able to walk to the bedside with walker and feels stable. Skin: Normal color, normal turgor, no icterus, no cyanosis except various staged ecchymoses, BL LE stasis changes. HEENT: AT/NC, EOMI, PERRLA, MMM. Lungs: Mildly diminished, greater bases, poor effort, no rales, ronchi or wheezing. Heart: Regular rate and rhythm; no gallop, rub audible. Abdomen: Soft, obese, NTTP, nondistended, no obvious evidence of HSM. Extremities: No cyanosis, no clubbing, bilateral ankle to distal villagomez chronic nonpitting edema. Neurological: Patient awake, alert, oriented as noted, cognitive function currently appears baseline w/ chronic memory impairment, pupils equally reactive to light and accommodation, cranial nerves grossly normal, moving all 4 extremities, strength improving, mildly to moderately globally decreased. Psychiatric: Affect appears normal, no acute evidence of depressive or anxiety feelings. Assessment and Plan: Please see hospital summary above. Weight / BMI Weight Weight: 182 lb Body Mass Index (BMI) 27.6 ABG / Lab / Microbiology Data 06/18/24 05:41 06/18/24 05:41 Laboratory: Laboratory Results - last 24 hr 06/17/24 11:36: POC Glucose 162 H 06/17/24 17:02: POC Glucose 161 H 06/17/24 22:05: POC Glucose 120 H 06/18/24 05:41: WBC 3.5 L, RBC 3.65 L, Hgb 11.8 L, Hct 35.2 L, MCV 96.4, MCH 32.3 H, MCHC 33.5, RDW Std Deviation 43.8, RDW Coeff of Jason 12.3, Plt Count 129 L, MPV 9.8, Immature Gran % (Auto) 0.000, Neut % (Auto) 54.2, Lymph % (Auto) 26.5, [place] % (Auto) 11.2 H, Eos % (Auto) 6.9 H, Baso % (Auto) 1.2 H, Absolute Neuts (auto) 1.9 L, Absolute Lymphs (auto) 0.92, Nucleated RBC % 0, Sodium 139, Potassium 3.6, Chloride 106, Carbon Dioxide 26.0, Anion Gap 7, BUN 12, Creatinine 0.80, Estim Creat Clear Calc 66.34, Est GFR (MDRD) Af Amer 90, Est GFR (MDRD) Non-Af 74, BUN/Creatinine Ratio 15.0, Glucose 126 H, Calcium 9.2, Phosphorus 3.8, Magnesium 1.6, Total Bilirubin 0.60, AST 19, ALT 16, Alkaline Phosphatase 89, Total Protein 6.4, Albumin 2.9 L, Globulin 3.5, Albumin/Globulin Ratio 0.8 L 06/18/24 06:45: POC Glucose 119 H Microbiology: Microbiology 06/16/24 17:25 Urine, Clean Catch Urine Culture - Final Culture exhibits no growth. D/C Instructions Discharge Diet: Low fat / Low cholesterol May resume sexual activity in: No Restrictions Weight Bearing Status: Weight bearing as tolerated Call your doctor if you observe: Fever of 101 or Higher, Inability to urinate, Shortness of breath, Dizziness, Swelling in the ankles, Chest pain, Increased palpitations (irregular heartbeat), Calf discomfort and Uncontrolled pain Meaningful Use Info Meaningful Use Meaningful Use Diagnoses (Choose all that apply): None applicable Ischemic Stroke Statin Dosing Therapy Reference: STATIN DOSE THERAPY REFERENCE: * Patients > 75 years receive moderate or high dose statin therapy. * Patients 75 years or YOUNGER should receive HIGH intensity statin dose unless contraindicated. You will be required to document reason for non-treatment if statin daily dose does not meet guidelines. HIGH DOSE STATIN THERAPY DAILY Atorvastatin > than or = to 40 mg Rosuvastatin > than or = to 20 mg Amlodipine + Atorvastatin > than or = to 2.5/40 mg Ezetimibe + Simvastatin 10/80 mg Simvastatin 80mg Discharge Plan Admission Admit Date/Time: 06/17/24 17:55 Primary Reason for Your Visit: Chronic memory impairment, Adult FTT, Questionabl UTI RULED OUT Attending Provider: Kassi Fisher Primary Care Provider: Ro Reed Consulting Providers: Alea Martinez Instructions Additional Instructions / Restrictions: ADDITIONAL DISCHARGE INFORMATION/PLAN OF CARE: --Urine culture without growth thus UTI ruled out, no antibiotics needed. --Please continue plan for ongoing home health to assist with home daily living care needs. --Continue with meals on wheels. --Home Health per discussion with CM/SW will evaluate patient this coming Thursday. --Continue meals on wheels to assist with encouraging oral intake. --Consider a white board for her kitchen where she is encouraged to daily check off if she has taken her medications and also eating the appropriate meals. --Please continue to work with the primary care physician to have formal memory testing/evaluation of dementia. --Please discontinue sedative flexeril regimen. This likely is contributing to episodes of increased confusion compounded by underlying chronic memory impairment/dementia. --Encourage outpatient INR checks as previously arranged. Discharge Orders/Prescriptions Prescriptions: Continued albuterol sulfate 90 mcg/actuation HFA aerosol inhaler 2 puff INHALATION Q4H PRN (Reason: shortness of breath or wheezing) Qty: 8.5 6RF Rx Instructions: administer with spacer montelukast 10 mg tablet 10 mg PO QPM Qty: 30 3RF oxybutynin chloride 10 mg tablet extended release 24hr 10 mg PO DAILY cholecalciferol (vitamin D3) 50 mcg (2,000 unit) capsule 50 mcg PO DAILY mecobalamin (vitamin B12) 1,000 mcg tablet,chewable 1,000 mcg PO DAILY glimepiride 2 mg tablet 2 mg PO BID oxycodone-acetaminophen 5-325 mg tablet 1 tab PO QDAY PRN (Reason: pain) warfarin 5 MG tablet 5 mg PO .COMPLEX Protocol: Dose Management Condition: Thursday Dose/Route: 2.5 mg Instruction: 1 x 2.5 mg tablet Condition: Thursday Dose/Route: 5 mg Instruction: 1 x 5 mg tablet Condition: Thursday Dose/Route: 5 mg Instruction: 1 x 5 mg tablet Condition: Thursday Dose/Route: 5 mg Instruction: 1 x 5 mg tablet Condition: Dose/Route: 5 mg Instruction: 1 x 5 mg tablet Condition: Thursday Dose/Route: 5 mg Instruction: 1 x 5 mg tablet Condition: Thursday Dose/Route: 2.5 mg Instruction: 1 x 2.5 mg tablet Protocol Text: Adjustment Start Date: Thursday06/14/24 INR Value: 1.8 INR Date: 06/14/24 Recheck Date: 06/21/24 Rx Instructions: 5 mg orally MOTUWETHUFR; atorvastatin 10 MG tablet 10 mg PO QHS gabapentin 300 mg capsule 600 mg PO QHS Patient Comments: Take 2 capsules by mouth daily at bedtime AND 1 capsule every morning. gabapentin 300 mg capsule 300 mg PO BREAKFAST Patient Comments: Take 2 capsules by mouth daily at bedtime AND 1 capsule every morning. Rx Instructions: 300 mg orally; warfarin [ven] 2.5 mg tablet 2.5 mg PO .COMPLEX Protocol: Dose Management Condition: Thursday Dose/Route: 2.5 mg Instruction: 1 x 2.5 mg tablet Condition: Thursday Dose/Route: 5 mg Instruction: 1 x 5 mg tablet Condition: Thursday Dose/Route: 5 mg Instruction: 1 x 5 mg tablet Condition: Thursday Dose/Route: 5 mg Instruction: 1 x 5 mg tablet Condition: Dose/Route: 5 mg Instruction: 1 x 5 mg tablet Condition: Thursday Dose/Route: 5 mg Instruction: 1 x 5 mg tablet Condition: Thursday Dose/Route: 2.5 mg Instruction: 1 x 2.5 mg tablet Protocol Text: Adjustment Start Date: Thursday06/14/24 INR Value: 1.8 INR Date: 06/14/24 Recheck Date: 06/21/24 Rx Instructions: 2.5 mg orally SUSA; magnesium oxide 400 mg magnesium tablet 250 mg PO DAILY acetaminophen 500 mg Tablet 1,000 mg PO Q8 PRN (Reason: fever or pain) Qty: 0 0RF Symbicort 160-4.5 mcg/actuation HFA aerosol inhaler 2 puff INHALATION BID Qty: 10.2 11RF Discontinued cyclobenzaprine 5 mg tablet 10 mg PO BID Referrals / Follow Up: Ro Reed MD [Primary Care Provider] - (Follow-up within 3-5 days to review admission.) Disposition Disposition (needs filled in before D/C Order can be placed): Home Health Service Charges/Coding Visit Charges Inpatient E&M: 49204 Disch Hosp >30min
--- NOTE | 2024-06-18 11:07 | CASEMGMT ---
Social Work- SW called pt dtr dara ORTIZ Brooke to ensure that there are no other needs prior to d/c. Pt dtr reports that she was in last night, but did not take information provided. Pt dtr states she feels home with HHC is preference at d/c; no other needs at this time. Plan: Home with resumption of HHC BRITTANY Lara
[2024-06-18 12:12] LABS: Bedside Glucose 128 mg/dL (74-106)
[2024-06-18] MEDS: Albuterol 2.5 MG/3 ML VIAL.NEB. INHALATION (13:22)
[2024-06-18 13:41] VITALS: PULSE 77; RESP 20
[2024-06-18 13:52] VITALS: BP 132/66; PULSE 73; RESP 18; TEMP 37; O2SAT 98
== END 2024-06-18 14:01 | disposition home health service (06) | DRG 71 ==
LOC: ED 20:57 → PCU 21:44 → MS3 21:50
PROVIDERS: Admitting Provider Internal Medicine; Emergency Provider Emergency Medicine; PCP Internal Medicine; Visit Provider Family Medicine
DX: G93.40 Encephalopathy, unspecified (principal); I48.92 Unspecified atrial flutter; D69.6 Thrombocytopenia, unspecified; E11.22 Type 2 diabetes mellitus with diabetic chronic kidney disease; F03.90 Unspecified dementia, unspecified severity, without behavioral disturbance, psychotic disturbance, mood disturbance, and anxiety; N18.30 Chronic kidney disease, stage 3 unspecified; I12.9 Hypertensive chronic kidney disease with stage 1 through stage 4 chronic kidney disease, or unspecified chronic kidney disease; J45.909 Unspecified asthma, uncomplicated; E66.9 Obesity, unspecified; I48.0 Paroxysmal atrial fibrillation; E11.40 Type 2 diabetes mellitus with diabetic neuropathy, unspecified; E78.5 Hyperlipidemia, unspecified; M17.11 Unilateral primary osteoarthritis, right knee; G47.33 Obstructive sleep apnea (adult) (pediatric); R62.7 Adult failure to thrive; Z79.899 Other long term (current) drug therapy; Z79.51 Long term (current) use of inhaled steroids; Z79.84 Long term (current) use of oral hypoglycemic drugs; Z79.01 Long term (current) use of anticoagulants; Z86.16 Personal history of COVID-19; Z95.0 Presence of cardiac pacemaker; Z66 Do not resuscitate; Z68.27 Body mass index [BMI] 27.0-27.9, adult
CPT/HCPCS: 36415; 70450; 71046; 80048; 80053; 81001; 82962; 83690; 83735; 83880; 84100; 84443; 84484; 85025; 85610; 85730; 87086; 93005; 94640; 94668; 97162; 97165; 99285; J7030; J7050; A4216

== ENCOUNTER 2024-07-04 11:40 | Day surgery (SDC) | payer MEDICARE, SELFPAY ==
[2024-07-01 08:32] VITALS: BMI 28.4
--- NOTE | 2024-07-04 15:09 | CL.IE_ITS ---
Patient: ISAIAH COLLAZO Study Date: 07/04/2024 Performing: Bang Emerson MD : 1945 Age: 79 Gender: female PROCEDURES PERFORMED [id number]-([id number])BATTERY REMOVAL+REPLACEMENT PACER-DUAL LEAD INDICATIONS Atrial fibrillation and complete heart block PROCEDURE DETAILS The patient was brought to the Catheterization Lab in the postabsorptive nonsedated state. Informed consent was obtained prior to the procedure. Local anesthetic was given subcutaneously to the left subclavian region with Lidocaine 2%. Incision was made to the left upper chest. PPM generator was removed. PPM generator was attached to the lead(s) and inserted into the pocket. PPM generator was then interrogated by the systems programmer analyst. Device pocket was irrigated with antibiotic, Clindamycin. Subcutaneous closure was completed with 3-0 Vicryl. Skin closure was completed with 4-0 Vicryl. The patient tolerated the procedure well. 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
== END 2024-07-04 15:55 | disposition home or self-care (01) ==
PROVIDERS: PCP Internal Medicine; Referring Provider Internal Medicine Cardiovascular Disease; Visit Provider Internal Medicine Cardiovascular Disease
DX: Z95.0 Presence of cardiac pacemaker (principal); I48.91 Unspecified atrial fibrillation; I44.2 Atrioventricular block, complete; E78.5 Hyperlipidemia, unspecified; I10 Essential (primary) hypertension; J45.909 Unspecified asthma, uncomplicated; Z79.51 Long term (current) use of inhaled steroids; Z79.899 Other long term (current) drug therapy; Z79.84 Long term (current) use of oral hypoglycemic drugs; Z79.01 Long term (current) use of anticoagulants
CPT/HCPCS: 33227; 33228; 36416; 85610; 99152; 99153; J7050

== ENCOUNTER 2024-07-14 09:16 | Outpatient (RCR) | payer MEDICARE, SELFPAY ==
[2024-04-24 22:40] VITALS: BMI 29.2
[2024-07-14 11:56] LABS: International Normalized Ratio 2.8; Prothrombin Time (Protime)PT. 29.2 SECONDS (11.7-14.9)
== END 2024-07-14 18:00 | disposition home or self-care (01) ==
LOC: LAB 09:16
PROVIDERS: Family Provider Internal Medicine; PCP Internal Medicine; Referring Provider Physician Assistant Medical; Visit Provider Physician Assistant Medical
DX: I48.91 Unspecified atrial fibrillation (principal); I48.92 Unspecified atrial flutter; Z79.01 Long term (current) use of anticoagulants
CPT/HCPCS: 36415; 85610

== ENCOUNTER 2024-08-20 20:04 | Emergency (ER) | payer MEDICARE, SELFPAY ==
[2024-08-20 20:06] VITALS: BP 158/79; PULSE 62; RESP 17; TEMP 36.6; O2SAT 98; BMI 26.3
--- NOTE | 2024-08-20 20:23 | ED.VIS.FALL ---
HPI <Dr. Miguel Perera DO - Last Filed: 08/20/24 23:35> HPI - Fall History of Present Illness Chief Complaint: Fall PFSH <Dr. Mgiuel Perera DO - Last Filed: 08/20/24 23:35> [facility] Medical History (Updated 08/21/24 @ 01:[address] Dyllan Alfonso DO) FPC (current) use of anticoagulants RAMESH (obstructive sleep apnea) Asthma History of complete heart block Other intervertebral disc degeneration, lumbar region Low back pain History of fall Non-pressure chronic ulcer of other part of left foot with fat layer exposed Pain in left foot Cardiac murmur Left knee sprain Falls Abnormal EKG Ulcer of right lower extremity with fat layer exposed Atrial flutter Obesity Pulmonary hypertension Subtherapeutic international normalized ratio (INR) Hyperlipidemia Type 2 diabetes mellitus Wears glasses Wears dentures Post-menopausal Sore on leg Arthritis Dietary restriction CPAP (continuous positive airway pressure) dependence Non-smoker Shortness of breath on exertion Cardiology follow-up encounter History of stress test History of echocardiogram Ureteral mass Hydronephrosis, right Fracture of left elbow Cervical strain, acute COVID-19 Essential hypertension Hyperlipidemia DDD (degenerative disc disease) Shoulder dislocation Contact dermatitis and other eczema Allergic rhinitis 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 Obesity Diabetes mellitus Hypersomnia Other secondary pulmonary hypertension BMI 33.0-33.9,adult Hx of bladder infections Atrial fibrillation Home Medications ?Medication ?Instructions ?Recorded ?Last Taken ?Type warfarin 5 mg tablet 5 mg PO DAILY blood thinner 11/18/18 06/29/24 History atorvastatin 10 mg tablet 10 mg PO QHS cholesterol 12/11/19 05/03/24 History gabapentin 300 mg capsule 300 mg PO BREAKFAST nerve pain 08/04/22 07/04/24 History gabapentin 300 mg capsule 600 mg PO QHS Neuropathy 08/04/22 05/03/24 History albuterol sulfate 90 mcg/actuation 2 puff inhalation Q4H PRN 03/04/24 Unknown Rx aerosol inhaler shortness of breath or wheezing #8.5 grams cholecalciferol (vitamin D3) 50 50 mcg PO DAILY 04/13/24 05/04/24 History mcg (2,000 unit) capsule magnesium oxide 250 mg PO DAILY SUPPLEMENT 04/13/24 05/04/24 History mecobalamin (vitamin B12) 1,000 1,000 mcg PO DAILY 04/13/24 05/04/24 History mcg chewable tablet oxybutynin chloride 10 mg 10 mg PO DAILY 04/13/24 Unknown History tablet,extended release 24 hr acetaminophen 500 mg tablet 1,000 mg (2 x 500 mg) PO Q8 PRN 05/06/24 Unknown Rx fever or pain #0 tabs glimepiride 2 mg tablet 2 mg PO BID 06/10/24 Unknown History blood-glucose meter (OneTouch #1 ea 07/01/24 Unknown History Verio Flex Meter) montelukast 10 mg tablet 10 mg PO QPM #90 tabs 07/26/24 Unknown Rx cephalexin 500 mg capsule 500 mg PO 4X/DAY 08/20/24 Unknown History sertraline 50 mg tablet 50 mg PO DAILY 08/20/24 Unknown History trospium 20 mg tablet 20 mg PO BID 08/20/24 Unknown History docusate sodium 100 mg capsule 100 mg PO BID #60 caps 08/21/24 Unknown Rx (Colace) oxycodone-acetaminophen 5 mg-325 1 tab PO Q6H PRN PRN Pain 3 days 08/21/24 Unknown Rx mg tablet #12 TABLETS Allergy/AdvReac Type Severity Reaction Status Date / Time amoxicillin Allergy Severe Hives Verified 08/20/24 20:05 aspirin Allergy Severe Hives, SOB Verified 08/20/24 20:05 Sulfa (Sulfonamide Allergy Severe Hives Verified 08/20/24 20:05 Antibiotics) Family History Mother Diabetes Father CAD (coronary artery disease) Sister Lung cancer Son Kidney stone Surgical History Presence of permanent cardiac pacemaker (04/01/19) S/P ablation of atrial flutter (04/01/19) History of cystoscopy Hx of right cataract extraction Hx of left cataract extraction History of kidney surgery History of appendectomy Social History household members: none housing: house number of children: 3 current occupational status: retired Smoking Status: Never smoker alcohol intake: never substance use type: does not use what type of physical activity do you participate in: none do you feel safe at home: Yes EXAM <Dr. Miguel Perera, DO - Last Filed: 08/20/24 23:35> Physical Exam Const Vital Signs: 08/20/24 20:06 08/20/24 20:48 08/20/24 22:05 Temperature 97.9 F Temperature Source Oral Pulse Rate 62 61 Respiratory Rate 17 18 Respiratory Effort Normal Non-Labored Respiratory Depth Normal Respiratory Pattern Normal Blood Pressure 158/79 H 126/77 H Blood Pressure Mean 105 93 Pulse Ox 98 93 Oxygen Delivery Method Room Air Room Air Room Air 08/21/24 00:00 08/21/24 01:23 Temperature 98.0 F Temperature Source Pulse Rate 64 61 Respiratory Rate 16 18 Respiratory Effort Respiratory Depth Respiratory Pattern Blood Pressure 146/88 H 145/97 H Blood Pressure Mean 107 113 Pulse Ox 93 93 Oxygen Delivery Method Room Air <Dr. Dyllan Alfonso, DO - Last Filed: 08/21/24 06:26> Physical Exam Const Vital Signs: 08/20/24 20:06 08/20/24 20:48 08/20/24 22:05 Temperature 97.9 F Temperature Source Oral Pulse Rate 62 61 Respiratory Rate 17 18 Respiratory Effort Normal Non-Labored Respiratory Depth Normal Respiratory Pattern Normal Blood Pressure 158/79 H 126/77 H Blood Pressure Mean 105 93 Pulse Ox 98 93 Oxygen Delivery Method Room Air Room Air Room Air 08/21/24 00:00 08/21/24 01:23 Temperature 98.0 F Temperature Source Pulse Rate 64 61 Respiratory Rate 16 18 Respiratory Effort Respiratory Depth Respiratory Pattern Blood Pressure 146/88 H 145/97 H Blood Pressure Mean 107 113 Pulse Ox 93 93 Oxygen Delivery Method Room Air MDM <Dr. Miguel Perera, DO - Last Filed: 08/20/24 23:35> [facility] MDM Narrative Medical decision making narrative: HISTORY OF PRESENT ILLNESS: 79-year-old female presents after mechanical fall this afternoon at approximate 1230. Notes show mechanical fall trying to get out of a chair and landed onto her left side. Notes she has severe left shoulder pain bilateral wrist pain and left elbow pain. She states while she takes warfarin and she not hit her head. Notes she was diagnosed UTI a week and states is getting better on her antibiotics which has been compliant with. REVIEW OF SYSTEMS: Pertinent positives: Shoulder pain, wrist pain, elbow pain Pertinent negatives: Headache, focal weakness, confusion PHYSICAL EXAM: Nursing triage notes reviewed, Vital signs reviewed Primary Survey Airway: Intact Breathing: Bilateral breath sounds Circulation: Palpable bilateral femorals, Palpable bilateral radial, Palpable bilateral DP and Palpable bilateral PT Disability / Spine precautions GCS Score: Eye Openin Verbal Response: 5 Motor Response: 6 Secondary Survey Constitutional: Please see MDM Head: Atraumatic, Midface stable, NO jaw malocclusion, No Cephalohematoma, and No Lacerations noted Eye: Pupils equal round and reactive to light, Extraocular muscles intact and No periorbital ecchymosis or stepoff, no evidence of entrapment ENT: Oropharynx clear, no lacerations, no hemotympanum, no raccoon eyes or fitzpatrick sign Cervical spine / Neck: No cervical spine bony tenderness, crepitance, or stepoff deformity Trachea midline Lungs: Clear to auscultation, No asymmetric rise and No crepitus, no flail chest Cardiac: Regular rate and rhythm and No murmurs Abdomen: Soft, Nontender and No rebound Pelvis: Pelvis stable to compression : No evidence of genital injury Back: No midline bony tenderness to thoracic/lumbar/sacral spines Neuro: The patient is alert and orient x 3 at baseline, intact strength and sensation in bilateral upper and lower extremities. 2+ patellar reflexes bilaterally. Extremities: NO gross Deformities, TTP over left shoulder, bilateral wrist, left elbow. Left wrist showed scaphoid tenderness over right wrist no scaphoid tenderness. Psych: Normal affect Nursing triage notes reviewed, Vital signs reviewed MEDICAL DECISION MAKING: Chief Complaint: Fall, shoulder, wrist elbow, wrist pain External records reviewed: Reviewed prior allergies, problem list, vital signs and home meds Factors affecting care: History of a flutter on warfarin, RAMESH, complete heart block Consults: none [facility] Narrative: Patient was hemodynamically stable, afebrile and nontoxic-appearing. Exam with TTP over left wrist, left scaphoid tenderness. TTP over left shoulder, left elbow and right wrist. No scaphoid tenderness noted over right wrist I considered the following differential diagnosis: Fracture dislocation of the left shoulder, left elbow, bilateral wrists. ALL IMAGES (IF OBTAINED) HAVE BEEN PERSONALLY REVIEWED AND INTERPRETED BY MYSELF. I reviewed the patient's x-rays of the left elbow, shoulder, bilateral wrists. I saw no obvious fracture or dislocation. Awaiting radiologist read. Patient signed out to p.m. physician pending final read and disposition. Will place thumb spica splint for the left wrist have the patient follow-up to avoid any occult scaphoid fracture. The patient and/or family, caregivers express understanding. The patient and/or family, caregivers agrees with the plan. Shared decision making: I will have a discussion with the patient and or visitors regarding risk/benefits of further testing or admission. They will be made aware of of the risk/benefits inherent in this decision they will be given the opportunity to voice understanding. Total critical care time today provided was at least 0 minutes. This excludes separately billable procedures. Critical care time (if documented) is secondary to the patient having high probability of clinically significant/life threatening deterioration in the patient's condition which required my urgent intervention. Impression: 1. Left shoulder contusion 2. Left elbow contusion 3. Bilateral wrist contusions Dispo: Pending x-ray This note was generated with [employer] software. It may contain incorrect words, spelling, and punctuation that were not noted in review of the chart prior to signing. Radiography Diagnostic Testing: Clinical Impression(s) from Imaging Studies Wrist X-Ray 08/20/24 20:34 IMPRESSION: Advanced chronic changes. Chronic-appearing ossifications adjacent to the proximal carpus. Chondrocalcinosis. No convincing acute fracture or joint effusion. Electronically Signed: Laura Perez MD at 0:33 EDT , Shoulder X-Ray 08/20/24 20:35 IMPRESSION: No acute findings in the left shoulder. Electronically Signed: Laura Perez MD at 0:44 EDT , Wrist X-Ray 08/20/24 20:36 IMPRESSION: 1. Dorsal soft tissue swelling. 2. Irregular dorsal margin of the lunate and 2 dominant ossific densities posterior to the lunate and proximal-mid carpal row on the lateral view. Suspicious for fractures of uncertain age, including suspected triquetral fracture. 3. Chondrocalcinosis. Diffuse heterogeneous bone density and demineralization. Electronically Signed: Laura Perez MD at 0:19 EDT , Elbow X-Ray 08/20/24 21:10 IMPRESSION: 1. It is difficult to exclude a small joint effusion, mildly prominent fat pads. Not as distended as usually seen with acute fractures. 2. Heterogeneous bone density and multiple chronic-appearing ossifications around the joint. 3. Consider CT if there is strong clinical suspicion of an occult acute elbow fracture, or short-term follow-up. Electronically Signed: Laura Perez MD at 23:48 EDT , <Dr. Dyllan Alfonso, DO - Last Filed: 08/21/24 06:26> [facility] Narrative Medical decision making narrative: HISTORY OF PRESENT ILLNESS: 79-year-old female presents after mechanical fall this afternoon at approximate 1230. Notes show mechanical fall trying to get out of a chair and landed onto her left side. Notes she has severe left shoulder pain bilateral wrist pain and left elbow pain. She states while she takes warfarin and she not hit her head. Notes she was diagnosed UTI a week and states is getting better on her antibiotics which has been compliant with. REVIEW OF SYSTEMS: Pertinent positives: Shoulder pain, wrist pain, elbow pain Pertinent negatives: Headache, focal weakness, confusion PHYSICAL EXAM: Nursing triage notes reviewed, Vital signs reviewed Primary Survey Airway: Intact Breathing: Bilateral breath sounds Circulation: Palpable bilateral femorals, Palpable bilateral radial, Palpable bilateral DP and Palpable bilateral PT Disability / Spine precautions GCS Score: Eye Openin Verbal Response: 5 Motor Response: 6 Secondary Survey Constitutional: Please see MDM Head: Atraumatic, Midface stable, NO jaw malocclusion, No Cephalohematoma, and No Lacerations noted Eye: Pupils equal round and reactive to light, Extraocular muscles intact and No periorbital ecchymosis or stepoff, no evidence of entrapment ENT: Oropharynx clear, no lacerations, no hemotympanum, no raccoon eyes or fitzpatrick sign Cervical spine / Neck: No cervical spine bony tenderness, crepitance, or stepoff deformity Trachea midline Lungs: Clear to auscultation, No asymmetric rise and No crepitus, no flail chest Cardiac: Regular rate and rhythm and No murmurs Abdomen: Soft, Nontender and No rebound Pelvis: Pelvis stable to compression : No evidence of genital injury Back: No midline bony tenderness to thoracic/lumbar/sacral spines Neuro: The patient is alert and orient x 3 at baseline, intact strength and sensation in bilateral upper and lower extremities. 2+ patellar reflexes bilaterally. Extremities: NO gross Deformities, TTP over left shoulder, bilateral wrist, left elbow. Left wrist showed scaphoid tenderness over right wrist no scaphoid tenderness. Psych: Normal affect Nursing triage notes reviewed, Vital signs reviewed MEDICAL DECISION MAKING: Chief Complaint: Fall, shoulder, wrist elbow, wrist pain External records reviewed: Reviewed prior allergies, problem list, vital signs and home meds Factors affecting care: History of a flutter on warfarin, RAMESH, complete heart block Consults: none MDM Narrative: Patient was hemodynamically stable, afebrile and nontoxic-appearing. Exam with TTP over left wrist, left scaphoid tenderness. TTP over left shoulder, left elbow and right wrist. No scaphoid tenderness noted over right wrist I considered the following differential diagnosis: Fracture dislocation of the left shoulder, left elbow, bilateral wrists. ALL IMAGES (IF OBTAINED) HAVE BEEN PERSONALLY REVIEWED AND INTERPRETED BY MYSELF. I reviewed the patient's x-rays of the left elbow, shoulder, bilateral wrists. I saw no obvious fracture or dislocation. Awaiting radiologist read. Patient signed out to p.m. physician pending final read and disposition. Will place thumb spica splint for the left wrist have the patient follow-up to avoid any occult scaphoid fracture. The patient and/or family, caregivers express understanding. The patient and/or family, caregivers agrees with the plan. Shared decision making: I will have a discussion with the patient and or visitors regarding risk/benefits of further testing or admission. They will be made aware of of the risk/benefits inherent in this decision they will be given the opportunity to voice understanding. Total critical care time today provided was at least 0 minutes. This excludes separately billable procedures. Critical care time (if documented) is secondary to the patient having high probability of clinically significant/life threatening deterioration in the patient's condition which required my urgent intervention. Impression: 1. Left shoulder contusion 2. Left elbow contusion 3. Bilateral wrist contusions Dispo: Pending x-ray This note was generated with [employer] dictation software. It may contain incorrect words, spelling, and punctuation that were not noted in review of the chart prior to signing. Le: Patient signed out to me. Left elbow had small anterior fat pad however full range of motion of the elbow with no pain pronation or supination. For lower suspicion for any occult fracture. Right wrist x-ray concerns for triquetrium fracture: Fracture over the lunate also read by radiology. She is tender in the right posterior wrist. She is more tender in this area more than the left side. I placed her in AP splint. Left shoulder tenderness there is no fractures area. Pain with movement. Likely strain. After splinting she was able to ambulate with a walker. Son was present. Patient states her daughter lives across from her. Therefore there is enough help at home. She is tolerate oxycodone's. Prescription for oxycodone and stool softeners with orthopedic follow-up. Splinting: Nylon sleeve was placed over the right wrist. Kerlix padding was placed. 3 inch AP splint plaster was used. Toney wrap to secure. Patient tolerated procedure well. Neurovascular intact post splinting. Radiography Diagnostic Testing: Clinical Impression(s) from Imaging Studies Wrist X-Ray 08/20/24 20:34 IMPRESSION: Advanced chronic changes. Chronic-appearing ossifications adjacent to the proximal carpus. Chondrocalcinosis. No convincing acute fracture or joint effusion. Electronically Signed: Laura Perez MD at 0:33 EDT , Shoulder X-Ray 08/20/24 20:35 IMPRESSION: No acute findings in the left shoulder. Electronically Signed: Laura Perez MD at 0:44 EDT , Wrist X-Ray 08/20/24 20:36 IMPRESSION: 1. Dorsal soft tissue swelling. 2. Irregular dorsal margin of the lunate and 2 dominant ossific densities posterior to the lunate and proximal-mid carpal row on the lateral view. Suspicious for fractures of uncertain age, including suspected triquetral fracture. 3. Chondrocalcinosis. Diffuse heterogeneous bone density and demineralization. Electronically Signed: Laura Perez MD at 0:19 EDT , Elbow X-Ray 08/20/24 21:10 IMPRESSION: 1. It is difficult to exclude a small joint effusion, mildly prominent fat pads. Not as distended as usually seen with acute fractures. 2. Heterogeneous bone density and multiple chronic-appearing ossifications around the joint. 3. Consider CT if there is strong clinical suspicion of an occult acute elbow fracture, or short-term follow-up. Electronically Signed: Laura Perez MD at 23:48 EDT , Discharge Plan Triage Chief Complaint: Fall ED Provider: Miguel Perera Dx/Rx/DC Orders Clinical Impression: Closed fracture of right wrist, Fall, Left shoulder strain, Contusion of elbow, left Instructions: ED Contusion, Elbow, ED Muscle Strain, Extremity, ED Fracture, Wrist, General Prescriptions: New oxycodone-acetaminophen 5-325 mg tablet 1 tab PO Q6H PRN PRN (Reason: Pain) 3 Days Qty: 12 0RF docusate sodium [Colace] 100 mg capsule 100 mg PO BID Qty: 60 0RF No Action albuterol sulfate 90 mcg/actuation HFA aerosol inhaler 2 puff INHALATION Q4H PRN (Reason: shortness of breath or wheezing) Qty: 8.5 6RF Rx Instructions: administer with spacer oxybutynin chloride 10 mg tablet extended release 24hr 10 mg PO DAILY cholecalciferol (vitamin D3) 50 mcg (2,000 unit) capsule 50 mcg PO DAILY mecobalamin (vitamin B12) 1,000 mcg tablet,chewable 1,000 mcg PO DAILY glimepiride 2 mg tablet 2 mg PO BID (DME) blood-glucose meter [OneTouch Verio Flex meter] [facility] [place] See Rx Instructions .ROUTE .MEDSUPPLY Qty: 1 Patient Comments: [NO ORIGINAL SIG] Rx Instructions: As directed warfarin 5 MG tablet 5 mg PO DAILY Protocol: Dose Management Condition: Thursday Dose/Route: 5 mg Instruction: 1 x 5 mg tablet Condition: Thursday Dose/Route: 5 mg Instruction: 1 x 5 mg tablet Condition: Thursday Dose/Route: 5 mg Instruction: 1 x 5 mg tablet Condition: Thursday Dose/Route: 5 mg Instruction: 1 x 5 mg tablet Condition: Dose/Route: 5 mg Instruction: 1 x 5 mg tablet Condition: Thursday Dose/Route: 5 mg Instruction: 1 x 5 mg tablet Condition: Thursday Dose/Route: 5 mg Instruction: 1 x 5 mg tablet Protocol Text: Adjustment Start Date: Thursday08/10/24 INR Value: 2.6 INR Date: 08/10/24 Recheck Date: 08/24/24 atorvastatin 10 MG tablet 10 mg PO QHS gabapentin 300 mg capsule 600 mg PO QHS Patient Comments: Take 2 capsules by mouth daily at bedtime AND 1 capsule every morning. gabapentin 300 mg capsule 300 mg PO BREAKFAST Patient Comments: Take 2 capsules by mouth daily at bedtime AND 1 capsule every morning. Rx Instructions: 300 mg orally; magnesium oxide 400 mg magnesium tablet 250 mg PO DAILY acetaminophen 500 mg Tablet 1,000 mg PO Q8 PRN (Reason: fever or pain) Qty: 0 0RF cephalexin 500 mg capsule 500 mg PO 4X/DAY sertraline 50 mg tablet 50 mg PO DAILY trospium 20 mg tablet 20 mg PO BID montelukast 10 mg tablet 10 mg PO QPM Qty: 90 3RF Primary Care Provider: Ro Reed Referrals: Ro Reed MD [Primary Care Provider] - Riley Gomez DO [[facility] Staff - Active Staff] - 3-5 Days Activity Restrictions/Additional Instructions: Right wrist x-ray triquetral wrist fractures maintain splint. Left shoulder left elbow left wrist negative. Clinically no elbow fracture. Take pain medicines for pain control stool softeners to prevent constipation. Follow-up with Dr. Gomez. Print Language: Cook Islander Disposition Disposition: Home, Self Care Discharge Date/Time: 08/21/24 02:08
--- NOTE | 2024-08-20 20:34 | RAD_ITS ---
EXAM: XR LEFT WRIST COMPLETE, 3 OR MORE VIEWS CLINICAL INDICATION: pain after fall TECHNIQUE: Frontal, lateral and oblique views of the left wrist. COMPARISON: No relevant prior studies available. FINDINGS: BONES/JOINTS: Heterogeneous bone density and coarse trabeculae. Multiple ossifications ventral and dorsal to the lunate on the lateral view, uncertain chronicity but favored to be chronic. Mild irregular dorsal margin of the lunate on the lateral view and at least one dominant ossific density of 6 mm posterior to the lunate. Chondrocalcinosis over the articular surface of the ulna. Mild degenerative changes at the base of the thumb. No acute fracture. No subluxation. Normal alignment. SOFT TISSUES: Unremarkable. No soft tissue swelling or gas. No radiopaque foreign body. VASCULATURE: Arterial calcifications. RAD/Wrist min 3 Views IMPRESSION: Advanced chronic changes. Chronic-appearing ossifications adjacent to the proximal carpus. Chondrocalcinosis. No convincing acute fracture or joint effusion. Electronically Signed: Laura Perez MD at 0:33 EDT ,
--- NOTE | 2024-08-20 20:35 | RAD_ITS ---
EXAM: XR LEFT SHOULDER COMPLETE, 2 OR MORE VIEWS CLINICAL INDICATION: pain TECHNIQUE: AP and scapular Y views. COMPARISON: Chest radiograph June 16, 2024. FINDINGS: BONES/JOINTS: Intact AC and glenohumeral joints. No fracture or dislocation. No sclerotic or destructive changes observed. SOFT TISSUES: Unremarkable. No soft tissue swelling or gas. No radiopaque foreign body. TUBES, LINES AND DEVICES: Left subclavian pacemaker with leads in the partially included. RAD/Shoulder min 2 Views IMPRESSION: No acute findings in the left shoulder. Electronically Signed: Laura Perez MD at 0:44 EDT ,
--- NOTE | 2024-08-20 20:36 | RAD_ITS ---
EXAM: XR RIGHT WRIST COMPLETE, 3 OR MORE VIEWS CLINICAL INDICATION: PAIN AFTER FALL TECHNIQUE: Frontal, lateral and oblique views of the right wrist. COMPARISON: No relevant prior studies available. FINDINGS: BONES/JOINTS: The bones are diffusely heterogeneous. There are multiple small ossific densities posterior to the carpus on the lateral view, posterior to the margin of the lunate, suggesting triquetral fracture of uncertain age and possibly chip fracture from the posterior margin of the lunate, the posterior margin is irregular. Amorphous calcification over the articular surface of the ulna and between the ulna and radius, presumably chondrocalcinosis. Preservation of the joint space. SOFT TISSUES: There is dorsal soft tissue swelling on the lateral view. No radiopaque foreign body. VASCULATURE: Arterial calcification noted at the distal forearm and ventral wrist. Mild degenerative change at the base of the thumb. RAD/Wrist min 3 Views IMPRESSION: 1. Dorsal soft tissue swelling. 2. Irregular dorsal margin of the lunate and 2 dominant ossific densities posterior to the lunate and proximal-mid carpal row on the lateral view. Suspicious for fractures of uncertain age, including suspected triquetral fracture. 3. Chondrocalcinosis. Diffuse heterogeneous bone density and demineralization. Electronically Signed: Laura Perez MD at 0:19 EDT ,
[2024-08-20] MEDS: oxyCODONE 5 MG Tablet PO (20:42)
--- OUTSIDE RECORDS SUMMARY | 2024-08-20 20:56 | XMS RPT_ITS | CCD ---
Author Organization [facility] Care Team Providers Care 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 Name Role Phone Wilder BOONE Clarisse Kenya Unavailable Unavaila ble Kim Moreira Unavailable Unavailable Joon Lopez MD Primary Care Provider Joon Lopez MD Primary Care Provider Joon Lopez MD Primary Care Provider JOHN NICOLE, DR DUPREE Primary Care Physician RUBIO GONZALEZ DO Attending Unavailable JOHN NICOLE, DR DUPREE Primary Care Unavailable Joon Lopez MD Primary Care Provider TALAMPHERVE, JOON D Primary Care Unavailable WHITNEY HAMMOND Attending Unavailable TALAMPAS, OJON D Primary Care Unavailable TALAMPAS, JOON D Referring Unavailable TALAMPAS, JOON D Primary Care Unavailable TALAMPAS, JOON D Primary Care Unavailable TALAMPAS, JOON D Attending Unavailable TALAMPAS, JOON D Primary Care Unavailable TALAMPAS, JOON D Attending Unavailable TALAMPAS, JOON D Primary Care Unavailable TALAMPAS, JOON D Attending Unavailable TALAMPAS, JOON D Primary Care Unavailable TALAMPAS, JOON D Attending Unavailable WHITNEY HAMMOND Attending Unavailable TALAMPAS, JOON D Primary Care Unavailable WHITNEY HAMMOND Referring Unavailable TALAMPAS, JOON D Primary Care Unavailable TALAMPAS, JOON D Attending Unavailable TALAMPAS, JOON D Primary Care Unavailable TALAMPAS, JOON D Primary Care Unavailable SELF Referring Unavailable TALAMPAS, JOON D Primary Care Unavailable TALAMPAS, JOON D Attending Unavailable TALAMPAS, JOON D Primary Care Unavailable TALAMPAS, JOON D Referring Unavailable TALAMPAS, JOON D Primary Care Unavailable XOCHITL CASTREJON Attending Unavailable TALAMPAS, JOON D Referring Unavailable Allergies Allergy Classification Reported Allergen(s) Allergy Type Date of Onset Reaction(s) Facility Aspirin (1 source) Aspirin Drug Allergy 9 [facility] Work Phone: Penicillins (antibiotic) (1 source) Amoxicillin Drug Allergy 5 [facility] Sulfonamides (antibiotic) (1 source) Sulfonamides (Antibiotic) Drug Allergy 5 [facility] tiZANidine (1 source) tiZANidine Drug Allergy 3 Mental Status Change, Other: See Comments [facility] Work Phone: (20 sources) amoxicillin; 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: [amoxicillin] Drug Allergy 5 [facility] Work Phone: [phone] (20 sources) aspirin; 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: [ASPIRIN] Drug Allergy 9 [facility] Work Phone: [phone] (2 sources) sulfaSALAzine Drug Allergy 5 [facility] Work Phone: (4 sources) PROAIR RESPICLICK; 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: [PROAIR RESPICLICK] allergy to substance 6 Lack of efficiency [facility] Work Phone: [phone] (20 sources) Sulfonamides (Antibiotic); 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: [SULFA (SULFONAMIDE ANTIBIOTICS)] Drug Allergy 5 [facility] (20 sources) tiZANidine; 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: [TIZANIDINE] Drug Allergy 3 Mental Status Change, Other: See Comments [facility] Work Phone: (1 source) Penicillin; 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: [penicillin] Drug Allergy [facility] (1 source) Sulfamethoxazole; 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: [sulfamethoxazole ] Drug Allergy [facility] Medications Current Medications Medication Drug Class(es) Dates Sig (Normalized) Sig (Original) [id number] 200 actuat albuterol 0.09 mg/actuat metered dose inhaler (20 sources) beta2-Adrenergic Agonist Start: 05-24-2023 End: 05-27-2024 take 2 puff(s) by inhalation every four hours as needed for wheezing albuterol HFA (PROAIR HFA) 90 mcg/actuation inhaler Inhale 2 Puffs as instructed every 4 hours as needed for wheezing/shortnes s of breath. 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 90 tablet 3 03/22/2024 Active Start: 01-07-2017 take 1 tablet by lg th once daily at bedtime ATORVASTATIN CALCIUM 10 MG TABS One tablet by mouth daily @ bedtime ATORVASTATIN CALCIUM [id number] Grant Ko MD Comment on above: Take 1 tablet by lg th once daily. Blood-Glucose Meter monitoring kit (1 source) Start: 07-28-20 End: 07-29-20 Blood-Glucose Meter monitoring kit Glucose Meter of Choice - Kit - Dx: Type 2 DM - Controlled E11.9 Insulin No Testing blood sugar once daily 1 Each 0 07/28/2022 07/29/2022 Active Comment on above: Glucose Meter of Cho ice - Kit - Dx: Type 2 DM - Controlled E11.9 Insulin No Testing blood sugar once daily cholecalciferol 0.05 mg oral capsule (20 sources) Vitamin D Start: 04-06-20 take 1 capsule by mouth once daily Cholecalciferol, Vitamin D3, 50 mcg (2,000 unit) cap Indications: Vitamin D deficiency Take 1 capsule by mouth once daily. 90 capsule 2 04/06/2024 Active diclofenac sodium 0.01 mg/mg topical gel (20 sources) Nonsteroidal Anti-inflammatory Drug Start: 06-17-20 End: 05-11-20 diclofenac (VOLTAREN ARTHRITIS PAIN) 1 % topical gel Indications: Acute pain of left knee , Sprain of left knee, unspecified ligament, initial encounter Apply 2 g to affected area four times daily. Takes as needed 05/11/2024 Active Comment on above: Apply 2 g to affecte d area four times daily. doxycycline hyclate 100 mg oral tablet (2 sources) Tetracycline-class Drug Start: 05-12-20 End: 05-22-20 take 1 tablet by mouth twice daily doxycycline (VIBRA-TABS) 100 mg tablet Indications: Cellulitis of foot Take 1 tablet by mouth twice daily for 10 days. 20 tablet 0 05/12/2023 05/22/2023 Active Start: 05-07-2022 End: 05-17-2022 take 1 tablet by mouth twice daily doxycycline (VIBRA-TABS) 100 mg tablet Take 1 tablet by mouth twice daily for 10 days. 20 tablet 0 05/07/2022 05/17/2022 Active Comment on above: Take 1 tablet by lg twice daily for 10 days. 14 actuat fluticasone furoate 0.1 mg/actuat / vilanterol 0.025 mg/actuat dry powder inhaler (12 sources) Corticosteroid, beta2-Adrenergic Agonist Start: 06-29-2024 fluticasone-vilanterol (BREO ELLIPTA) 100-25 mcg/dose inhaler Inhale 1 Inhalation as instructed once daily. 180 Each 3 06/29/2024 Active Start: 09-25-2016 End: 01-05-2017 take 1 puff(s) by inhalation twice daily BREO ELLIPTA 200-25 MCG/INH AEPB inh one puff twice daily FLUTICASONE FUROATE-VILANTEROL [id number] Leeanna Mascorro CNP gabapentin 300 mg oral capsule (20 sources) Anti-epileptic Agent Start: 01-28-2024 gabapenti n 300 mg oral capsule Dose : 300 mg = 1 cap(s), Oral, BID, # 60 cap(s), 0 Refill(s) Start Date: 01/28/24 Status: Ordered Start: 09-25-2022 End: 12-16-2024 take 2 capsules by mouth once daily at bedtime, then take 1 capsule by mouth once daily in the morning gabapentin (NEURONTIN) 300 mg capsule Take 2 capsules by mouth daily at bedtime AND 1 capsule every morning. Do all this for 180 days. 270 capsule 1 03/22/2024 12/16/2024 Active Start: 08-21-2021 End: 07-16-2022 take 2 capsules by mouth once daily at bedtime, then take 1 capsule by mouth once daily in the morning gabapentin (NEURONTIN) 300 mg capsule Take 2 capsules by mouth daily at bedtime AND 1 capsule every morning. Do all this for 180 days. 270 capsule 1 01/17/2022 Active Comment on above: Take 2 capsules by m outh daily at bedtime AND 1 capsule every morning. Do all this for 180 days. glimepiride 2 mg oral tablet (20 sources) Sulfonylurea Start: take 1 tablet by mouth twice daily at mealtime glimepiride (AMARYL) 2 mg tablet Indications: Controlled type 2 diabetes mellitus without complication, without long-term current use of insulin (HCC) Take 1 tablet by mouth two times a day with meals. 180 tablet 1 03/22/2024 Active Start: 04-03-2023 End: 03-22-2024 glimepiride (AMARYL) 2 mg ta blet Indications: Controlled type 2 diabetes mellitus without complication, without long-term current use of insulin (HCC) Take 1 tablet by mouth once daily as needed. for blood sugar over 200. (Has pills left from 2017) 0 04/03/2023 03/22/2024 Discontinued Start: 04-30-2016 AMARYL 2 MG TA BS One tab daily as needed for blood sugar over 250 GLIMEPIRIDE [id number] Clarisse Hodges Richardson Comment on above: Take 1 tablet by lg th once daily as needed. for blood sugar over 200. (Has pills left from 2016) Magnesium complex 400 mg (1 source) Start: 01-28-2024 take 1 dose by mouth once daily Magnesium complex 400 mg Dose = 400 mg, Oral, Daily, 0 Refill(s) Start Date: 01/28/24 Status: Ordered magnesium oxide 250 mg oral tablet (20 sources) Start: 04-06-2024 take 1 tablet by mouth once daily Magnesium Oxide 250 mg magnesium tab Indications: Hypomagnesemia Take 1 tablet by mouth once daily. 90 tablet 2 04/06/2024 Active Start: 11-18-2017 End: 03-22-2024 take 1 capsule by mouth once daily magnesium oxide 400 mg magnesium cap Take 400 mg by mouth once daily. 0 11/18/2017 03/22/2024 Discontinued Comment on above: Take 400 mg by mouth once daily. montelukast 10 mg oral tablet (20 sources) Leukotriene Receptor Antagonist Start: 03-04-20 take 1 tablet by mouth once daily at bedtime montelukast (SINGULAIR) 10 mg tablet Take 10 mg by mouth daily at bedtime. 03/04/2024 Active nitrofurantoin, macrocrystals 100 mg oral capsule (20 sources) Nitrofuran Antibacterial Start: 05-06-20 take 1 capsule by mouth twice daily nitrofurantoin macrocrystal (MACRODANTIN) 100 mg capsule Take 100 mg by mouth two times a day. 05/06/2024 Active 24 hr oxybutynin chloride 10 mg extended release oral tablet (20 sources) Cholinergic Muscarinic Antagonist Start: 04-05-20 take 1 tablet by mouth every hour oxybutynin ER (DITROPAN XL) 10 mg 24 hr tablet Take 1 tablet by mouth every afternoon. 04/05/2024 Active oxyCODONE hydrochloride 5 mg oral tablet (9 sources) Opioid Agonist Start: 07-06-20 End: 07-13-20 take 1 tablet by mouth twice daily as needed oxyCODONE IR (ROXICODONE) 5 mg immediate release tablet Indications: Rib pain on right side , Severe low back pain , DDD (degenerative disc disease), lumbar Take 1-2 tablets by mouth two times a day as needed for pain for up to 7 days. 28 tablet 07/06/2024 07/13/2024 Active Start: 06-10-2024 End: 06-17-2024 take 1 tablet by mouth twice daily as needed oxyCODONE IR (ROXICODONE) 5 mg immediate release tablet Indications: Rib pain on right side , Severe low back pain , DDD (degenerative disc disease), lumbar Take 1-2 tablets by mouth two times a day as needed for pain for up to 7 days. 28 tablet 0 06/10/2024 06/17/2024 Active Start: 01-28-2024 oxyCODONE 5 mg oral tablet ( IMMEDIATE release ) Dose : 5 mg = 1 tab(s), Oral, q8h, 0 Refill(s) Start Date: 01/28/24 Status: Ordered oxyCODONE IR (RO XICODONE) 5 mg immediate release tablet Take by mouth every 8 hours as needed for pain. Managed by Dr. Mora, Pain Management manages Active sertraline 50 mg oral tablet (5 sources) Serotonin Reuptake Inhibitor Start: 08-03-2024 sertraline (ZOLOFT) 50 mg tablet Indications: Apathy , Moderate episode of recurrent major depressive disorder (HCC) Take 1 tablet by mouth once daily. Please take half pill for a week and then increase to a full pill 30 tablet 3 08/03/2024 Active Symbicort 80 mcg-4.5 mcg/inh Inhaler (1 source) Start: 01-28-2024 take 1 dose by inhalation twice daily Symbicort 80 mcg-4.5 mcg/inh Inhaler Dose = 2 puff(s), Inhalation, BID, 0 Refill(s) Start Date: 01/28/24 Status: Ordered TENS unit and electrodes cmpk (20 sources) Start: 09-10-2023 TENS unit and electrodes cmpk Indications: DDD (degenerative disc disease), lumbar 1 Each once daily. 1 Each 1 09/10/2023 Active Start: 10-02-2015 End: 09-10-2023 TENS unit and electrodes cmp k Indications: DDD (degenerative disc disease), lumbar 1 Each once daily. 1 Device 0 10/02/2015 09/10/2023 Discontinued Start: 10-02-2015 TENS unit and electrodes cmpk Indications: DDD (degenerative disc disease), lumbar 1 Each once daily. 1 Device 0 10/02/2015 Active Comment on above: 1 Each once daily. tens unit electrodes (TENS UNITS ELECTRODES) 2X2 pads (20 sources) Start: 09-10-2023 tens unit electrodes (TENS UNITS ELECTRODES) 2X2 pads Indications: Back strain Change pad every month as indicated 4 Each 09/10/2023 Active Comment on above: Change pad every thu as indicated triamcinolone acetonide 1 mg/ml topical cream (20 sources) Corticosteroid Start: 06-04-2020 End: 06-22-2023 triamcinolone acetonide (KENALOG) 0.1 % cream Indications: Venous stasis dermatitis of left lower extremity , Rash of neck , Flexural atopic dermatitis Apply 1 application to affected area three times daily as needed. For rash on extremities and leg 80 g 1 06/22/2023 Active Start: 04-30-2016 End: 05-11-2017 TRIAMCINOLONE ACETONIDE 0.1 % CREA One application to affected area three times daily as needed TRIAMCINOLONE ACETONIDE [id number] Clarisse Bai Comment on above: Apply 1 application to affected area three times daily as needed. For rash on extremities and leg trospium chloride 20 mg oral tablet (5 sources) Cholinergic Muscarinic Antagonist Start: 4 take 1 tablet by mouth twice daily trospium (SANCTURA) 20 mg tablet Indications: Cognitive impairment, mild, so stated , Urge incontinence Take 1 tablet by mouth two times a day. 60 tablet 2 08/03/2024 Active vitamin b12 1 mg oral tablet (20 sources) Vitamin B12 Start: 4 take 1 tablet by mouth once daily cyanocobalamin (VITAMIN B-12) 1,000 mcg tab Indications: B12 deficiency Take 1 tablet by mouth once daily. 90 tablet 2 04/06/2024 Active warfarin sodium 5 mg oral tablet (20 sources) Vitamin K Antagonist Start: 1 End: 4 take 1 tablet by mouth once daily warfarin (COUMADIN) 5 mg tablet Take 1 tablet by mouth once daily. 90 tablet 3 05/11/2024 Active Start: 05-01-2017 take 1 tablet by lg th once daily COUMADIN 5 MG TABS Take as directed: take one tablet by mouth daily WARFARIN SODIUM [id number] Lisandra Cao PA-C Comment on above: Take 1 tablet by lg th once daily. Completed/Discontinued Medications Medication Drug Class(es) Dates Sig (Normalized) Sig (Original) acetaminophen 325 mg / HYDROcodone bitartrate 5 mg oral tablet (4 sources) Opioid Agonist Start: 04-30-2016 End: 07-27-2017 HYDROCODONE-ACETAMI NOPHEN 5-325 MG TABS One tab twice daily as needed HYDROCODONE-ACETAMI NOPHEN [id number] Clarisse Bai acetaminophen 325 mg / oxyCODONE hydrochloride 5 mg oral tablet (20 sources) Opioid Agonist Start: 05-11-2024 End: 06-10-2024 take 1 tablet by mouth twice daily as needed for pain and pain oxyCODONE-acetamino phen (PERCOCET) 5-325 mg tablet Indications: Rib pain on right side , Severe low back pain , DDD (degenerative disc disease), lumbar Take 1 tablet by mouth two times a day as needed (for severe back pain and foot pain) for up to 30 days. 30 tablet 05/11/2024 06/10/2024 Discontinued Start: 09-23-2023 End: 09-30-2023 take 1 tablet by mouth every eight hours as needed for pain and pain oxyCODONE-acetaminophen (PERCOCET) 5-325 mg tablet Indications: Severe low back pain , DDD (degenerative disc disease), lumbar Take 1 tablet by mouth every 8 hours as needed (for severe back pain and foot pain) for up to 7 days. 21 tablet 0 09/23/2023 09/30/2023 Active Start: 05-06-2023 End: 05-13-2023 take 1 tablet by mouth every eight hours as needed for pain oxyCODONE-acetaminophen (PERCOCET) 5-325 mg tablet Indications: Severe low back pain , DDD (degenerative disc disease), lumbar Take 1 tablet by mouth every 8 hours as needed (for severe back pain) for up to 7 days. 21 tablet 0 05/06/2023 05/13/2023 Start: 03-31-2023 End: 04-23-2023 take 1 tablet by mouth every eight hours as needed for pain oxyCODONE-acetaminophen (PERCOCET) 5-325 mg tablet Indications: Severe low back pain , DDD (degenerative disc disease), lumbar Take 1 tablet by mouth every 8 hours as needed (for severe back pain) for up to 7 days. 21 tablet 0 04/16/2023 04/23/2023 Active Start: 12-26-2022 End: 01-02-2023 take 1 tablet by mouth every eight hours as needed for pain oxyCODONE-acetaminophen (PERCOCET) 5-325 mg tablet Indications: DDD (degenerative disc disease), lumbar , Acute pain of left knee , Sprain of left knee, unspecified ligament, initial encounter , Severe low back pain Take 1 tablet by mouth every 8 hours as needed for pain for up to 7 days. 21 tablet 0 12/26/2022 01/02/2023 Start: 09-15-2022 End: 09-22-2022 take 1 tablet by mouth every eight hours as needed for pain oxyCODONE-acetaminophen (PERCOCET) 5-325 mg tablet Indications: DDD (degenerative disc disease), lumbar , Acute pain of left knee , Sprain of left knee, unspecified ligament, initial encounter , Severe low back pain Take 1 tablet by mouth every 8 hours as needed for pain for up to 7 days. 21 tablet 0 09/15/2022 09/22/2022 Active Start: 07-01-2022 End: 09-15-2022 oxyCODONE-acetaminophen (PER COCET) 5-325 mg tablet Indications: DDD (degenerative disc disease), lumbar , Acute pain of left knee , Sprain of left knee, unspecified ligament, initial encounter , Severe low back pain Last filled February 0 07/01/2022 09/15/2022 Discontinued Start: 11-22-2021 End: 04-01-2022 take 1 tablet by mouth every eight hours as needed for pain oxyCODONE-acetaminophen (PERCOCET) 5-325 mg tablet Indications: Severe low back pain , DDD (degenerative disc disease), lumbar , Acute pain of left knee , Sprain of left knee, unspecified ligament, initial encounter Take 1 tablet by mouth every 8 hours as needed (for severe back pain) for up to 7 days. 21 tablet 0 03/25/2022 04/01/2022 Active Start: 12-07-2020 End: 11-22-2021 oxyCODONE-acetaminophen (PER COCET) 5-325 mg tablet Take 5-325 mg by mouth twice daily. As needed 0 12/07/2020 11/22/2021 Discontinued Comment on above: Take 5-325 mg by lg th twice daily. As needed Take 1 tablet by lg th every 8 hours as needed (for severe back pain) for up to 7 days. Last filled May Take 1 tablet by lg th every 8 hours as needed for pain for up to 7 days. Take 1 tablet by lg th every 8 hours as needed (for severe back pain and foot pain) for up to 7 days. apixaban 5 mg oral tablet (4 sources) Factor Xa Inhibitor Start: 01-08-20 17 End: 05-01-20 17 take 1 tablet by mouth twice daily ELIQUIS 5 MG TABS One tablet by mouth twice daily APIXABAN [id number] Grant Ko MD benzonatate 100 mg oral capsule (6 sources) Non-narcotic Antitussive Start: 05-07-20 22 take 100-200 mg by mouth every eight hours as needed benzonatate (TESSALON PERLES) 100 mg capsule Take 1-2 capsules by mouth three times daily as needed for cough. 40 capsule 0 05/07/2022 Active Comment on above: Take 1-2 capsules by mouth three times daily as needed for cough. budesonide / formoterol (20 sources) Corticosteroid, beta2-Adrenergic Agonist Start: 06-22-20 23 End: 06-29-20 24 take 2 puff(s) by inhalation twice daily budesonide-formotero l (SYMBICORT) 160-4.5 mcg/actuation inhaler Indications: Moderate persistent asthma without complication Inhale 2 Puffs as instructed twice daily. ([facility] pulmonology) 06/22/2023 06/29/2024 Discontinued Start: 06-22-2023 take 2 puff(s) by in halation twice daily budesonide-formoterol (SYMBICORT) 160-4.5 mcg/actuation inhaler Indications: Moderate persistent asthma without complication Inhale 2 Puffs as instructed twice daily. ([facility] pulmonology) 06/22/2023 Active Start: 06-22-2023 take 2 puff(s) by in halation twice daily budesonide-formoterol (SYMBICORT) 160-4.5 mcg/actuation inhaler Indications: Moderate persistent asthma without complication Inhale 2 Puffs as instructed twice daily. ([facility] pulmonology) 0 06/22/2023 Active Start: 04-23-2021 End: 06-22-2023 take 2 puff(s) by inhalation twice daily budesonide-formoterol (SYMBICORT) 160-4.5 mcg/actuation inhaler Indications: Moderate persistent asthma without complication Inhale 2 Puffs as instructed twice daily. 3 Inhaler 3 04/23/2021 06/22/2023 Discontinued Start: 04-23-2021 take 2 puff(s) by in halation twice daily budesonide-formoterol (SYMBICORT) 160-4.5 mcg/actuation inhaler Indications: Moderate persistent asthma without complication Inhale 2 Puffs as instructed twice daily. 3 Inhaler 3 04/23/2021 Active Start: 04-30-2016 take 2 puff(s) by in halation twice daily SYMBICORT 160-4.5 MCG/ACT AERO inh two puffs twice daily BUDESONIDE-FORMOTEROL FUMARATE [id number] Grant Ko MD Comment on above: Inhale 2 Puffs as in structed twice daily. Inhale 2 Puffs as in structed twice daily. ([facility] pulmonology) collagenase 0.25 unt/mg topical ointment (7 sources) Collagen-specific Enzyme Start: 05-12-20 End: 09-23-20 collagenase (SANTYL) ointment Indications: Partial thickness burn of left foot, subsequent encounter Apply to affected area once daily. 90 g 2 05/12/2023 09/23/2023 Discontinued Comment on above: Apply to affected ar ea once daily. cyclobenzaprine hydrochloride 5 mg oral tablet (20 sources) Muscle Relaxant Start: 05-11-20 End: 06-22-20 take 5-10 mg by mouth every twelve hours as needed cyclobenzaprine (FLEXERIL) 5 mg tablet Take 1-2 tablets by mouth two times a day as needed for muscle spasm. 40 tablet 1 05/11/2024 06/22/2024 Discontinued (Discontinued by another Health Care Provider) Start: 09-18-2021 End: 05-06-2023 take 0.5-1 tablets by mouth twice daily as needed for muscle spasms cyclobenzaprine (FLEXERIL) 10 mg tablet Indications: Back strain, sequela Take 0.5-1 tablets by mouth twice daily as needed for muscle spasm (may make drowsy, take before bedtime). 30 tablet 1 04/16/2023 05/06/2023 Discontinued (Lack of Efficacy) Start: 09-25-2016 End: 05-11-2017 CYCLOBENZAPRINE HCL 10 MG TA BS One tab once daily as needed CYCLOBENZAPRINE HCL [id number] Clarisse Wilder LPN Comment on above: Take 0.5-1 tablets b y mouth twice daily as needed for muscle spasm (may make drowsy, take before bedtime). 120 actuat formoterol fumarate 0.005 mg/actuat / mometasone furoate 0.2 mg/actuat metered dose inhaler (4 sources) Corticosteroid, beta2-Adrenergic Agonist Start: 09-25-20 End: 01-06-20 take 2 puff(s) by inhalation twice daily DULERA 200-5 MCG/ACT AERO inh two puffs twice daily MOMETASONE FURO-FORMOTEROL FUM [id number] Leeanna Mascorro CNP lidocaine 0.05 mg/mg medicated patch (13 sources) Antiarrhythmic, Amide Local Anesthetic Start: 05-11-20 End: 06-22-20 24 apply 1 dose transdermal route every twenty-four hours, then apply 1 dose transdermal route every twelve hours lidocaine (LIDODERM) 5 % Apply 1 Patch as directed every 24 hours. Remove patch after 12 hours. Location: Back/ribs 30 Patch 1 05/11/2024 06/22/2024 Discontinued (Cost of medication) lisinopril 5 mg oral tablet (4 sources) Angiotensin Converting Enzyme Inhibitor Start: 04-30-20 16 End: 01-08-20 17 LISINOPRIL 5 MG TABS One tab once daily LISINOPRIL [id number] Lisandra Walsh RN losartan potassium 25 mg oral tablet (4 sources) Angiotensin 2 Receptor Jourdan Start: 01-08-20 take 1 tablet by mouth once daily LOSARTAN POTASSIUM 25 MG TABS One tablet by mouth daily LOSARTAN POTASSIUM [id number] Grant Ko MD Start: 01-07-2017 take 1 tablet by lg once daily LOSARTAN POTASSIUM 50 MG TABS One tablet by mouth daily LOSARTAN POTASSIUM [id number] Grant Ko MD 24 hr metFORMIN hydrochloride 500 mg extended release oral tablet (20 sources) Biguanide Start: 01-28-2024 MetFORMIN (Eqv -Fortamet) 1000 mg oral tablet, EXTENDED RELEASE Dose : 1,000 mg = 1 tab(s), Oral, BID, Okay to substitute for generic Glucophage XR, # 60 tab(s), 0 Refill(s) Start Date: 01/28/24 Status: Ordered Start: 06-10-2021 End: 05-10-2024 take 1 tablet by mouth twice daily at mealtime metFORMIN ER (GLUCOPHAGE XR) 500 mg 24 hr tablet Indications: Controlled type 2 diabetes mellitus without complication, without long-term current use of insulin (HCC) Take 1 tablet by mouth two times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 [G47.33] 01/21/2021 Pacemaker [Z95.0] 01/21/2021 Bilateral carpal tunnel syndrome [G56.03] 01/21/2021 Pulmonary hypertension (HCC) [I27.20] 05/03/2023 Ulcer of right lower extremity with fat layer e*07/26/2023 Obesity, Class I, BMI 30-34.9 [E66.811] 09/23/2023 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 Prior Auth is pending. VLAD Reyna Rachel L, MA 08/03/2024 12:08 PM Signed Phone call to Dian to inform that neither or [facility] do the type of MRI that was ordered. Informed Dian that I will have a support services manager call her to get testing scheduled. Pacemaker card printed from [facility] [employer]. Sent to scanning. Sheridan, can you please call this patient's daughter Dian to schedule the MRI? Jamari Maki MA Sher[place] Humphries 08/03/2024 12:45 PM Signed I have placed the appropriate message to the Pacemaker/MRI safety team via phone encounter to the pool. Jamari Maki MA 08/03/2024 1:27 PM Signed Noted. Thank you! Jamari Maki MA Allergies As of Date: 08/03/2024 Noted Allergy Reaction TIZANIDINE 10/07/2023 1 - Mental Status Change 14 - Other: See Comments Comments: Made her feel like in another world. Very dry mouth. Stumbling/falling AMOXICILLIN 07/14/2005 4 - Hives ASPIRIN 01/30/2009 Comments: Hives, shortness of breath SULFA (SULFONAMIDE ANTIBIOTICS) 07/14/2005 4 - Hives Date Reviewed: 08/03/2024 Reviewed by: Jamari Maki MA - Fully Assessed Reason for Visit: Patient Update [1234] Prescriptions as of 08/03/2024 - oxyCODONE IR (ROXICODONE) 5 mg immediate release tablet Take by mouth every 8 hours as needed for pain. Managed by Dr. Mora, Pain Management manages - sertraline (ZOLOFT) 50 mg tablet Take 1 tablet by mouth once daily. Please take half pill for a week and then increase to a full pill - trospium (SANCTURA) 20 mg tablet Take 1 tablet by mouth two times a day. - fluticasone-vilantero l (BREO ELLIPTA) 100-25 mcg/dose inhaler Inhale 1 Inhalation as instructed once daily. - albuterol HFA (PROAIR HFA) 90 mcg/actuation inhaler Inhale 2 Puffs as instructed every 4 hours as needed for wheezing/shortness of breath. 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 - oxybutynin ER (DITROPAN XL) 10 mg 24 hr tablet Take 1 tablet by mouth every afternoon. - warfarin (COUMADIN) 5 mg tablet Take 1 tablet by mouth once daily. - montelukast (SINGULAIR) 10 mg tablet Take 10 mg by mouth daily at bedtime. - diclofenac (VOLTAREN ARTHRITIS PAIN) 1 % topical gel Apply 2 g to affected area four times daily. Takes as needed - Cholecalciferol, Vitamin D3, 50 mcg (2,000 unit) cap Take 1 capsule by mouth once daily. - Magnesium Oxide 250 mg magnesium tab Take 1 tablet by mouth once daily. - cyanocobalamin (VITAMIN B-12) 1,000 mcg tab Take 1 tablet by mouth once daily. - atorvastatin (LIPITOR) 10 mg tablet Take 1 tablet by mouth once daily. - gabapentin (NEURONTIN) 300 mg capsule Take 2 capsules by mouth daily at bedtime AND 1 capsule every morning. Do all this for 180 days. - glimepiride (AMARYL) 2 mg tablet Take 1 tablet by mouth two times a day with meals. - TENS unit and electrodes cmpk 1 Each once daily. - tens unit electrodes (TENS UNITS ELECTRODES) 2X2 pads Change pad every month as indicated - triamcinolone acetonide (KENALOG) 0.1 % cream Apply 1 application to affected area three times daily as needed. For rash on extremities and leg - blood sugar diagnostic (BLOOD GLUCOSE TEST) test strip Test blood sugar(s) 1 times daily. Dx: Type 2 DM - Controlled E11.9 Insulin: No - Lancets lancets Test blood sugar(s) 1 times daily. Dx: Type 2 DM - Controlled E11.9 Insulin: No Meds Comments as of 12/10/2019: Pt stating not taking glimepiride secondary to cost of Rx. 12/10/2019 Keon Herbert Problem List As Of Date 08/03/2024 Noted Resolved Congenital obstructive defects of renal pelvis *09/29/2005 CALCULUS OF KIDNEY [N20.0] 09/29/2005 Contact dermatitis and other eczema [692] 09/29/2005 09/16/2021 PALPITATIONS [R00.2] Obesity, unspecified [E66.9] 09/23/2023 ALLERGIC RHINITIS NOS [J30.9] Essential hypertension [I10] Contact dermatitis and other eczema, due to uns* 09/16/2021 Dizziness and giddiness [R42] 09/23/2023 Mild intermittent asthma without complication [* CALCANEAL SPUR [M77.30] 03/10/2008 Back Strain, recurrent [S39.012A] Hyperlipemia [E78.5] 12/19/2010 Diabetes mellitus type 2, controlled, without c* Rotator cuff tear [M75.100] 05/06/2011 DDD (degenerative disc disease), lumbar [M51.36* Muscle spasm [M62.838] Severe low back pain [M54.50] 12/28/2018 Atrial flutter (HCC) [I48.92] 04/12/2019 A (more content not included)... [facility] NEDAKEISHA SANTOYO ([id number]) 1945 F Date Time Provider Department 08/03/24 JOON LOPEZ During your visit today, we recorded the following information about you: Sheridan Humphries 08/03/2024 12:44 PM Signed Pt came in for a Geriatric consult today. Dr. Castrejon would like a MRI Brain Quant with 3D processing. Patient has a pacemaker. Please advise and contact patients daughter to schedule. Patient has been identified by name and Date of : Yes Patient: Keisha Red Date of : 1945 Provider for this encounter : Dr. Carmelita Lopez MD Reason for call: MRI-Pacemaker Was an appointment scheduled: No Reason for requesting visit (RFV/signs and symptoms/diagnosis) : Geriatrics Person calling: daughter: Dian Return call to: daughter: Dian Call patient at: , it is OK to leave message [phone] (home) [phone] (cell) Payor: [employer] / [facility] / Product Type: HMO / Sheridan Humphries Allergies As of Date: 08/03/2024 Noted Allergy Reaction TIZANIDINE 10/07/2023 1 - Mental Status Change 14 - Other: See Comments Comments: Made her feel like in another world. Very dry mouth. Stumbling/falling AMOXICILLIN 07/14/2005 4 - Hives ASPIRIN 01/30/2009 Comments: Hives, shortness of breath SULFA (SULFONAMIDE ANTIBIOTICS) 07/14/2005 4 - Hives Date Reviewed: 08/03/2024 Reviewed by: Jamari Maki MA - Fully Assessed Reason for Visit: Appointment [186] Prescriptions as of 08/04/2024 - oxyCODONE IR (ROXICODONE) 5 mg immediate release tablet Take by mouth every 8 hours as needed for pain. Managed by Dr. Mora, Pain Management manages - sertraline (ZOLOFT) 50 mg tablet Take 1 tablet by mouth once daily. Please take half pill for a week and then increase to a full pill - trospium (SANCTURA) 20 mg tablet Take 1 tablet by mouth two times a day. - fluticasone-vilantero l (BREO ELLIPTA) 100-25 mcg/dose inhaler Inhale 1 Inhalation as instructed once daily. - albuterol HFA (PROAIR HFA) 90 mcg/actuation inhaler Inhale 2 Puffs as instructed every 4 hours as needed for wheezing/shortness of breath. 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 - oxybutynin ER (DITROPAN XL) 10 mg 24 hr tablet Take 1 tablet by mouth every afternoon. - warfarin (COUMADIN) 5 mg tablet Take 1 tablet by mouth once daily. - montelukast (SINGULAIR) 10 mg tablet Take 10 mg by mouth daily at bedtime. - diclofenac (VOLTAREN ARTHRITIS PAIN) 1 % topical gel Apply 2 g to affected area four times daily. Takes as needed - Cholecalciferol, Vitamin D3, 50 mcg (2,000 unit) cap Take 1 capsule by mouth once daily. - Magnesium Oxide 250 mg magnesium tab Take 1 tablet by mouth once daily. - cyanocobalamin (VITAMIN B-12) 1,000 mcg tab Take 1 tablet by mouth once daily. - atorvastatin (LIPITOR) 10 mg tablet Take 1 tablet by mouth once daily. - gabapentin (NEURONTIN) 300 mg capsule Take 2 capsules by mouth daily at bedtime AND 1 capsule every morning. Do all this for 180 days. - glimepiride (AMARYL) 2 mg tablet Take 1 tablet by mouth two times a day with meals. - TENS unit and electrodes cmpk 1 Each once daily. - tens unit electrodes (TENS UNITS ELECTRODES) 2X2 pads Change pad every month as indicated - triamcinolone acetonide (KENALOG) 0.1 % cream Apply 1 application to affected area three times daily as needed. For rash on extremities and leg - blood sugar diagnostic (BLOOD GLUCOSE TEST) test strip Test blood sugar(s) 1 times daily. Dx: Type 2 DM - Controlled E11.9 Insulin: No - Lancets lancets Test blood sugar(s) 1 times daily. Dx: Type 2 DM - Controlled E11.9 Insulin: No Meds Comments as of 12/10/2019: Pt stating not taking glimepiride secondary to cost of Rx. 12/10/2019 Keon Herbert Problem List As Of Date 08/03/2024 Noted Resolved Congenital obstructive defects of renal pelvis *09/29/2005 CALCULUS OF KIDNEY [N20.0] 09/29/2005 Contact dermatitis and other eczema [692] 09/29/2005 09/16/2021 PALPITATIONS [R00.2] Obesity, unspecified [E66.9] 09/23/2023 ALLERGIC RHINITIS NOS [J30.9] Essential hypertension [I10] Contact dermatitis and other eczema, due to uns* 09/16/2021 Dizziness and giddiness [R42] 09/23/2023 Mild intermittent asthma without complication [* CALCANEAL SPUR [M77.30] 03/10/2008 Back Strain, recurrent [S39.012A] Hyperlipemia [E78.5] 12/19/2010 Diabetes mellitus type 2, controlled, without c* Rotator cuff tear [M75.100] 05/06/2011 DDD (degenerative disc disease), lumbar [M51.36* Muscle spasm [M62.838] Severe low back pain [M54.50] 12/28/2018 Atrial flutter (HCC) [I48.92] 04/12/2019 Anticoagulated on Coumadin [Z79.01] 04/12/2019 RAMESH (obstructive sleep apnea) [G47.33] 01/21/2021 Pacemaker [ (more content not included)... [facility] ([id number]) 1945 F Date Time Provider Department 07/06/24 JOON LOPEZ INTMWS During your visit today, we recorded the following information about you: Liza Santana LPN 07/06/2024 10:59 AM Signed FYI Calling to report, Chris went out to [place] Patient from , she reported a fall that took place yesterday. Walking out of hallway slipped dog urine. She was able to get up on her own, no injury. Joon Llanos LPN, MD 07/09/2024 1:57 PM Signed Noted Allergies As of Date: 07/06/2024 Noted Allergy Reaction TIZANIDINE 10/07/2023 1 - Mental Status Change 14 - Other: See Comments Comments: Made her feel like in another world. Very dry mouth. Stumbling/falling AMOXICILLIN 07/14/2005 4 - Hives ASPIRIN 01/30/2009 Comments: Hives, shortness of breath SULFA (SULFONAMIDE ANTIBIOTICS) 07/14/2005 4 - Hives Date Reviewed: 06/22/2024 Reviewed by: Winifred Jordan LPN - Fully Assessed Reason for Visit: Patient Update [1234] Prescriptions as of 07/11/2024 - oxyCODONE IR (ROXICODONE) 5 mg immediate release tablet Take 1-2 tablets by mouth two times a day as needed for pain for up to 7 days. - fluticasone-vilantero l (BREO ELLIPTA) 100-25 mcg/dose inhaler Inhale 1 Inhalation as instructed once daily. - albuterol HFA (PROAIR HFA) 90 mcg/actuation inhaler Inhale 2 Puffs as instructed every 4 hours as needed for wheezing/shortness of breath. 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 - oxybutynin ER (DITROPAN XL) 10 mg 24 hr tablet Take 1 tablet by mouth every afternoon. - warfarin (COUMADIN) 5 mg tablet Take 1 tablet by mouth once daily. - montelukast (SINGULAIR) 10 mg tablet Take 10 mg by mouth daily at bedtime. - diclofenac (VOLTAREN ARTHRITIS PAIN) 1 % topical gel Apply 2 g to affected area four times daily. Takes as needed - Cholecalciferol, Vitamin D3, 50 mcg (2,000 unit) cap Take 1 capsule by mouth once daily. - Magnesium Oxide 250 mg magnesium tab Take 1 tablet by mouth once daily. - cyanocobalamin (VITAMIN B-12) 1,000 mcg tab Take 1 tablet by mouth once daily. - atorvastatin (LIPITOR) 10 mg tablet Take 1 tablet by mouth once daily. - gabapentin (NEURONTIN) 300 mg capsule Take 2 capsules by mouth daily at bedtime AND 1 capsule every morning. Do all this for 180 days. - glimepiride (AMARYL) 2 mg tablet Take 1 tablet by mouth two times a day with meals. - TENS unit and electrodes cmpk 1 Each once daily. - tens unit electrodes (TENS UNITS ELECTRODES) 2X2 pads Change pad every month as indicated - triamcinolone acetonide (KENALOG) 0.1 % cream Apply 1 application to affected area three times daily as needed. For rash on extremities and leg - blood sugar diagnostic (BLOOD GLUCOSE TEST) test strip Test blood sugar(s) 1 times daily. Dx: Type 2 DM - Controlled E11.9 Insulin: No - Lancets lancets Test blood sugar(s) 1 times daily. Dx: Type 2 DM - Controlled E11.9 Insulin: No Meds Comments as of 12/10/2019: Pt stating not taking glimepiride secondary to cost of Rx. 12/10/2019 Keon Herbert Problem List As Of Date 07/06/2024 Noted Resolved Congenital obstructive defects of renal pelvis *09/29/2005 CALCULUS OF KIDNEY [N20.0] 09/29/2005 Contact dermatitis and other eczema [692] 09/29/2005 09/16/2021 PALPITATIONS [R00.2] Obesity, unspecified [E66.9] 09/23/2023 ALLERGIC RHINITIS NOS [J30.9] Essential hypertension [I10] Contact dermatitis and other eczema, due to uns* 09/16/2021 Dizziness and giddiness [R42] 09/23/2023 Mild intermittent asthma without complication [* CALCANEAL SPUR [M77.30] 03/10/2008 Back Strain, recurrent [S39.012A] Hyperlipemia [E78.5] 12/19/2010 Diabetes mellitus type 2, controlled, without c* Rotator cuff tear [M75.100] 05/06/2011 DDD (degenerative disc disease), lumbar [M51.36] Muscle spasm [M62.838] Severe low back pain [M54.50] 12/28/2018 Atrial flutter (HCC) [I48.92] 04/12/2019 Anticoagulated on Coumadin [Z79.01] 04/12/2019 RAMESH (obstructive sleep apnea) [G47.33] 01/21/2021 Pacemaker [Z95.0] 01/21/2021 Bilateral carpal tunnel syndrome [G56.03] 01/21/2021 Pulmonary hypertension (HCC) [I27.20] 05/03/2023 Ulcer of right lower extremity with fat layer e*07/26/2023 Obesity, Class I, BMI 30-34.9 [E66.9] 09/23/2023 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 Uses [facility] in [place]. Carolina Rojo LPN 07/05/2024 1:43 PM Signed Prescription Refill Information The patient has been identified by name and date of : Yes Caregiver verified no other encounters exist for this prescription request: Yes Caregiver confirmed with patient/requestor that no other refills are due, in the near future, with this provider at this time: Yes The last office visit in the department: 06/22/24 Does the patient have a future office visit with this provider/department: No Requested Prescriptions Pending Prescriptions Disp Refills oxyCODONE IR (ROXICODONE) 5 mg immediate release tablet 28 tablet 0 Sig: Take 1-2 tablets by mouth two times a day as needed for pain for up to 7 days. Carolina Rojo LPN July 05, 2024 1:42 PM Whitney Hammond APRN.CNP 07/06/2024 10:50 AM Signed PDMP website checked and validated. All prescriptions have been APPROPRIATELY filled. No suspicious activity was identified. 07/06/2024 by Whitney Hammond APRN.DOMINGO Allergies As of Date: 07/05/2024 Noted Allergy Reaction TIZANIDINE 10/07/2023 1 - Mental Status Change 14 - Other: See Comments Comments: Made her feel like in another world. Very dry mouth. Stumbling/falling AMOXICILLIN 07/14/2005 4 - Hives ASPIRIN 01/30/2009 Comments: Hives, shortness of breath SULFA (SULFONAMIDE ANTIBIOTICS) 07/14/2005 4 - Hives Date Reviewed: 06/22/2024 Reviewed by: Winifred Jordan LPN - Fully Assessed Reason for Visit: Rx refill; not on current med list [Other] Visit Diagnoses:Rib pain on right side [R07.81] Comment:Okay percocet as needed for severe pain Severe low back pain [M54.50] Comment:Chronic back pain with occasional episodes severe back pain when needs Percocet.Sporadic episodes are infrequent.Needs to have med on hand to treat prn DDD (degenerative disc disease), lumbar [M51.36] Order(s):oxyCODONE IR (ROXICODONE) 5 mg immediate release tabletTake 1-2 tablets by mouth two times a day as needed for pain for up to 7 days.Disp: 28 tabletRfl: 0 Prescriptions as of 07/06/2024 - oxyCODONE IR (ROXICODONE) 5 mg immediate release tablet Take 1-2 tablets by mouth two times a day as needed for pain for up to 7 days. - fluticasone-vilantero l (BREO ELLIPTA) 100-25 mcg/dose inhaler Inhale 1 Inhalation as instructed once daily. - albuterol HFA (PROAIR HFA) 90 mcg/actuation inhaler Inhale 2 Puffs as instructed every 4 hours as needed for wheezing/shortness of breath. 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 - oxybutynin ER (DITROPAN XL) 10 mg 24 hr tablet Take 1 tablet by mouth every afternoon. - warfarin (COUMADIN) 5 mg tablet Take 1 tablet by mouth once daily. - montelukast (SINGULAIR) 10 mg tablet Take 10 mg by mouth daily at bedtime. - diclofenac (VOLTAREN ARTHRITIS PAIN) 1 % topical gel Apply 2 g to affected area four times daily. Takes as needed - Cholecalciferol, Vitamin D3, 50 mcg (2,000 unit) cap Take 1 capsule by mouth once daily. - Magnesium Oxide 250 mg magnesium tab Take 1 tablet by mouth once daily. - cyanocobalamin (VITAMIN B-12) 1,000 mcg tab Take 1 tablet by mouth once daily. - atorvastatin (LIPITOR) 10 mg tablet Take 1 tablet by mouth once daily. - gabapentin (NEURONTIN) 300 mg capsule Take 2 capsules by mouth daily at bedtime AND 1 capsule every morning. Do all this for 180 days. - glimepiride (AMARYL) 2 mg tablet Take 1 tablet by mouth two times a day with meals. - TENS unit and electrodes cmpk 1 Each once daily. - tens unit electrodes (TENS UNITS ELECTRODES) 2X2 pads Change pad every month as indicated - triamcinolone acetonide (KENALOG) 0.1 % cream Apply 1 application to affected area three times daily as needed. For rash on extremities and leg - blood sugar diagnostic (BLOOD GLUCOSE TEST) test strip Test blood sugar(s) 1 times daily. Dx: Type 2 DM - Controlled E11.9 Insulin: No - Lancets lancets Test blood sugar(s) 1 times daily. Dx: Type 2 DM - Controlled E11.9 Insulin: No Meds Comments as of 12/10/2019: Pt stating not taking glimepiride secondary to cost of Rx. 12/10/2019 Keon Herbert Problem List As Of Date 07/05/2024 Noted Resolved Congenital obstructive defects of renal pelvis *09/29/2005 CALCULUS OF KIDNEY [N20.0] 09/29/2005 Contact dermatitis and other eczema [692] 09/29/2005 09/16/2021 PALPITATIONS [R00.2] Obesity, unspecified [E66.9] 09/23/2023 ALLERGIC RHINITIS NOS [J30.9] Essential hypertension [I10] Contact dermatitis and other eczema (more content not included)... Normal [facility] 06-28-2024 [facility] Telephone (FAMWS) KEISHA RED ([id number]) 1945 F Date Time Provider Department 06/28/24 JOON LOPEZ [facility] During your visit today, we recorded the following information about you: Any Peacock LPN 06/28/2024 2:56 PM Signed Mary Jo with [facility] [employer] is calling in regards to rx for Symbicort 160-4.5 mg inhaler. Mary Jo reports pt cannot afford Symbicort and the reheater helper does not have a patient assistance program. Mary Jo reports the reheater helper for Bre[employer] does have an assistance program and is asking if pcp would prescribe pt Breo inhaler instead. If so Mary Jo is requesting rx be faxed to [phone] Attn: Mary Jo. BOONE Fowler Liza D, MD 06/29/2024 1:16 PM Signed Patient's request for medication is as follows: Requested Prescriptions Signed Prescriptions Disp Refills fluticasone-vilantero l (BREO ELLIPTA) 100-25 mcg/dose inhaler 180 Each 3 Sig: Inhale 1 Inhalation as instructed once daily. Authorizing Provider: JOON LOPEZ Prescription(s) printed as above. Please process accordingly. Sylwia Chang LPN 06/29/2024 4:25 PM Signed Order faxed to the number listed for the [facility]. Sylwia Chang LPN Allergies As of Date: 06/28/2024 Noted Allergy Reaction TIZANIDINE 10/07/2023 1 - Mental Status Change 14 - Other: See Comments Comments: Made her feel like in another world. Very dry mouth. Stumbling/falling AMOXICILLIN 07/14/2005 4 - Hives ASPIRIN 01/30/2009 Comments: Hives, shortness of breath SULFA (SULFONAMIDE ANTIBIOTICS) 07/14/2005 4 - Hives Date Reviewed: 06/22/2024 Reviewed by: Winifred Jordan LPN - Fully Assessed Reason for Visit: patient assistance [Other] Visit Diagnosis:Moderate persistent asthma without complication [J45.40] Comment:Stable on current meds Order(s):fluticasone- vilanterol (BREO ELLIPTA) 100-25 mcg/dose inhalerInhale 1 Inhalation as instructed once daily.Disp: 180 EachRfl: 3 Prescriptions as of 07/04/2024 - fluticasone-vilantero l (BREO ELLIPTA) 100-25 mcg/dose inhaler Inhale 1 Inhalation as instructed once daily. - albuterol HFA (PROAIR HFA) 90 mcg/actuation inhaler Inhale 2 Puffs as instructed every 4 hours as needed for wheezing/shortness of breath. 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 - oxybutynin ER (DITROPAN XL) 10 mg 24 hr tablet Take 1 tablet by mouth every afternoon. - warfarin (COUMADIN) 5 mg tablet Take 1 tablet by mouth once daily. - montelukast (SINGULAIR) 10 mg tablet Take 10 mg by mouth daily at bedtime. - diclofenac (VOLTAREN ARTHRITIS PAIN) 1 % topical gel Apply 2 g to affected area four times daily. Takes as needed - Cholecalciferol, Vitamin D3, 50 mcg (2,000 unit) cap Take 1 capsule by mouth once daily. - Magnesium Oxide 250 mg magnesium tab Take 1 tablet by mouth once daily. - cyanocobalamin (VITAMIN B-12) 1,000 mcg tab Take 1 tablet by mouth once daily. - atorvastatin (LIPITOR) 10 mg tablet Take 1 tablet by mouth once daily. - gabapentin (NEURONTIN) 300 mg capsule Take 2 capsules by mouth daily at bedtime AND 1 capsule every morning. Do all this for 180 days. - glimepiride (AMARYL) 2 mg tablet Take 1 tablet by mouth two times a day with meals. - TENS unit and electrodes cmpk 1 Each once daily. - tens unit electrodes (TENS UNITS ELECTRODES) 2X2 pads Change pad every month as indicated - triamcinolone acetonide (KENALOG) 0.1 % cream Apply 1 application to affected area three times daily as needed. For rash on extremities and leg - blood sugar diagnostic (BLOOD GLUCOSE TEST) test strip Test blood sugar(s) 1 times daily. Dx: Type 2 DM - Controlled E11.9 Insulin: No - Lancets lancets Test blood sugar(s) 1 times daily. Dx: Type 2 DM - Controlled E11.9 Insulin: No Meds Comments as of 12/10/2019: Pt stating not taking glimepiride secondary to cost of Rx. 12/10/2019 Keon Herbert Problem List As Of Date 06/28/2024 Noted Resolved Congenital obstructive defects of renal pelvis *09/29/2005 CALCULUS OF KIDNEY [N20.0] 09/29/2005 Contact dermatitis and other eczema [692] 09/29/2005 09/16/2021 PALPITATIONS [R00.2] Obesity, unspecified [E66.9] 09/23/2023 ALLERGIC RHINITIS NOS [J30.9] Essential hypertension [I10] Contact dermatitis and other eczema, due to uns* 09/16/2021 Dizziness and giddiness [R42] 09/23/2023 Mild intermittent asthma without complication [* CALCANEAL SPUR [M77.30] 03/10/2008 Back Strain, recurrent [S39.012A] Hyperlipemia [E78.5] 12/19/2010 Diabetes mellitus type 2, controlled, without c* Rotator cuff tear [M75.100] 05/06/2011 DDD (degenerative disc disease), lumbar [M51.36] Muscle spasm [M62.838] Severe low back pain [M54.50] 12/28/2018 Atrial flutter (HCC) [I48.92] 04/12/2019 Anticoagulated on Coumadin [Z79.01] 04/12/2019 RAMESH (obstructive slee (more content not included)... Normal [facility] CNOVon 06-22-2024 CNOV Office Visit (INTMWS ) KEISHA RED ([id number]) 1945 F Date Time Provider Department 06/22/24 9:20 AM JOON LOPEZ INTMWS During your visit today, we recorded the following information about you: Temperature Pulse Respiration Blood pressure 97.1 degrees 86/minute 16/minute 110/56 Weight Height 85.3 kg 1.676 m Joon Lopez MD 06/22/2024 11:00 AM Signed This note was created using [employer]. Subjective Keisha Red is a 79 year old female. Patient presents with: Hospital F/U: dehydration c/o right knee goes out on her SUBJECTIVE: Keisha Red is a 79 year old year old lady here today for hospital appointment for review of medical conditions. Was admitted and discharged Thursday. Patient is a 79-year-old female presenting for a follow-up visit after a recent hospitalization. Patient was admitted to [facility] on the for confusion and was discharged on the . She reports that her confusion may have been exacerbated by dehydration and a lack of food intake. She also mentions that she dislikes drinking water but has been trying to stay hydrated by drinking flavored water and orange juice. She has a history of back pain and is currently taking oxycodone as needed for pain management. She also uses a TENS unit and lidocaine patches for pain relief. She has a pacemaker and is scheduled to have the battery replaced on July 04. She is also scheduled to see a new pain management doctor on July 12. 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 Agudelo No date: Dizziness and giddiness No date: Muscle spasm No date: Obesity, unspecified No date: Palpitations 05/03/2023: Pulmonary hypertension (HCC) 12/06/11: Shoulder dislocation Comment: Right shoulder s/p fall with reduction at [facility] No date: Type II or unspecified type diabetes mellitus without mention of complication, not stated as uncontrolled No date: Unspecified asthma(493.90) No date: Unspecified essential hypertension Current Outpatient Medications Medication Sig albuterol HFA (PROAIR HFA) 90 mcg/actuation inhaler Inhale 2 Puffs as instructed every 4 hours as needed for wheezing/shortness of breath. 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 oxybutynin ER (DITROPAN XL) 10 mg 24 hr tablet Take 1 tablet by mouth every afternoon. warfarin (COUMADIN) 5 mg tablet Take 1 tablet by mouth once daily. montelukast (SINGULAIR) 10 mg tablet Take 10 mg by mouth daily at bedtime. diclofenac (VOLTAREN ARTHRITIS PAIN) 1 % topical gel Apply 2 g to affected area four times daily. Takes as needed cyclobenzaprine (FLEXERIL) 5 mg tablet Take 1-2 tablets by mouth two times a day as needed for muscle spasm. lidocaine (LIDODERM) 5 % Apply 1 Patch as directed every 24 hours. Remove patch after 12 hours. Location: Back/ribs Cholecalciferol, Vitamin D3, 50 mcg (2,000 unit) cap Take 1 capsule by mouth once daily. Magnesium Oxide 250 mg magnesium tab Take 1 tablet by mouth once daily. cyanocobalamin (VITAMIN B-12) 1,000 mcg tab Take 1 tablet by mouth once daily. atorvastatin (LIPITOR) 10 mg tablet Take 1 tablet by mouth once daily. gabapentin (NEURONTIN) 300 mg capsule Take 2 capsules by mouth daily at bedtime AND 1 capsule every morning. Do all this for 180 days. glimepiride (AMARYL) 2 mg tablet Take 1 tablet by mouth two times a day with meals. TENS unit and electrodes cmpk 1 Each once daily. tens unit electrodes (TENS UNITS ELECTRODES) 2X2 pads Change pad every month as indicated triamcinolone acetonide (KENALOG) 0.1 % cream Apply 1 application to affected area three times daily as needed. For rash on extremities and leg budesonide-formoterol (SYMBICORT) 160-4.5 mcg/actuation inhaler Inhale 2 Puffs as instructed twice daily. ([facility] pulmonology) blood sugar diagnostic (BLOOD GLUCOSE TEST) test strip Test blood sugar(s) 1 times daily. Dx: Type 2 DM - Controlled E11.9 Insulin: No Lancets lancets Test blood sugar(s) 1 times daily. Dx: Type 2 DM - Controlled E11.9 Insulin: No No current facility-administered medications for this visit. Review of Systems Objective BP 110/56 (BP Site: Right Arm, BP Position: Sitting, BP Cuff Size: Large Adult) Pulse 86 Temp 36.2 ?C (97.1 ?F) Resp 16 Ht 167.6 cm (5' 6 ) Wt 85.3 kg (188 lb 0.8 oz) SpO2 91% BMI 30.35 kg/m? Physical Exam Constitutional: Appearance: Normal appearance. HENT: Head: Normocephalic. Eyes: Conjunctiva/sclera: Conjunctivae (more content not included)... Normal [facility] Laxmi 06-21-2024 [facility] Telephone (INTMWS) NEDAKEISHA Tracie ([id number]) 1945 F Date Time Provider Department 06/21/24 JOON LOPEZ During your visit today, we recorded the following information about you: Maddie Rojo LPN 06/21/2024 3:31 PM Signed Soren with [facility], nursing called to report he did a resumption of pt and will be seeing pt starting next week. will see 1 time a week for 2 weeks. Dx: disease management education. [facility] took pt off the Flexeril because they thought this may be contributing to her confusion. No call back needed. BOONE Randall Terri, APRN.[employer] 06/21/2024 4:09 PM Signed Noted. Okay for home health care. Allergies As of Date: 06/21/2024 Noted Allergy Reaction TIZANIDINE 10/07/2023 1 - Mental Status Change 14 - Other: See Comments Comments: Made her feel like in another world. Very dry mouth. Stumbling/falling AMOXICILLIN 07/14/2005 4 - Hives ASPIRIN 01/30/2009 Comments: Hives, shortness of breath SULFA (SULFONAMIDE ANTIBIOTICS) 07/14/2005 4 - Hives Date Reviewed: 06/01/2024 Reviewed by: Paola De La Cruz MA - Fully Assessed Reason for Visit: [facility] nursing [Other] Prescriptions as of 06/21/2024 - albuterol HFA (PROAIR HFA) 90 mcg/actuation inhaler Inhale 2 Puffs as instructed every 4 hours as needed for wheezing/shortness of breath. 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 - oxybutynin ER (DITROPAN XL) 10 mg 24 hr tablet Take 1 tablet by mouth every afternoon. - warfarin (COUMADIN) 5 mg tablet Take 1 tablet by mouth once daily. - montelukast (SINGULAIR) 10 mg tablet Take 10 mg by mouth daily at bedtime. - diclofenac (VOLTAREN ARTHRITIS PAIN) 1 % topical gel Apply 2 g to affected area four times daily. Takes as needed - cyclobenzaprine (FLEXERIL) 5 mg tablet Take 1-2 tablets by mouth two times a day as needed for muscle spasm. - lidocaine (LIDODERM) 5 % Apply 1 Patch as directed every 24 hours. Remove patch after 12 hours. Location: Back/ribs - Cholecalciferol, Vitamin D3, 50 mcg (2,000 unit) cap Take 1 capsule by mouth once daily. - Magnesium Oxide 250 mg magnesium tab Take 1 tablet by mouth once daily. - cyanocobalamin (VITAMIN B-12) 1,000 mcg tab Take 1 tablet by mouth once daily. - atorvastatin (LIPITOR) 10 mg tablet Take 1 tablet by mouth once daily. - gabapentin (NEURONTIN) 300 mg capsule Take 2 capsules by mouth daily at bedtime AND 1 capsule every morning. Do all this for 180 days. - glimepiride (AMARYL) 2 mg tablet Take 1 tablet by mouth two times a day with meals. - TENS unit and electrodes cmpk 1 Each once daily. - tens unit electrodes (TENS UNITS ELECTRODES) 2X2 pads Change pad every month as indicated - triamcinolone acetonide (KENALOG) 0.1 % cream Apply 1 application to affected area three times daily as needed. For rash on extremities and leg - budesonide-formoterol (SYMBICORT) 160-4.5 mcg/actuation inhaler Inhale 2 Puffs as instructed twice daily. ([facility] pulmonology) - blood sugar diagnostic (BLOOD GLUCOSE TEST) test strip Test blood sugar(s) 1 times daily. Dx: Type 2 DM - Controlled E11.9 Insulin: No - Lancets lancets Test blood sugar(s) 1 times daily. Dx: Type 2 DM - Controlled E11.9 Insulin: No Meds Comments as of 12/10/2019: Pt stating not taking glimepiride secondary to cost of Rx. 12/10/2019 Keon Herbert Problem List As Of Date 06/21/2024 Noted Resolved Congenital obstructive defects of renal pelvis *09/29/2005 CALCULUS OF KIDNEY [N20.0] 09/29/2005 Contact dermatitis and other eczema [692] 09/29/2005 09/16/2021 PALPITATIONS [R00.2] Obesity, unspecified [E66.9] 09/23/2023 ALLERGIC RHINITIS NOS [J30.9] Essential hypertension [I10] Contact dermatitis and other eczema, due to uns* 09/16/2021 Dizziness and giddiness [R42] 09/23/2023 Mild intermittent asthma without complication [* CALCANEAL SPUR [M77.30] 03/10/2008 Back Strain, recurrent [S39.012A] Hyperlipemia [E78.5] 12/19/2010 Diabetes mellitus type 2, controlled, without c* Rotator cuff tear [M75.100] 05/06/2011 DDD (degenerative disc disease), lumbar [M51.36] Muscle spasm [M62.838] Severe low back pain [M54.50] 12/28/2018 Atrial flutter (HCC) [I48.92] 04/12/2019 Anticoagulated on Coumadin [Z79.01] 04/12/2019 RAMESH (obstructive sleep apnea) [G47.33] 01/21/2021 Pacemaker [Z95.0] 01/21/2021 Bilateral carpal tunnel syndrome [G56.03] 01/21/2021 Pulmonary hypertension (HCC) [I27.20] 05/03/2023 Ulcer of right lower extremity with fat layer e*07/26/2023 Obesity, Class I, BMI 30-34.9 [E66.9] 09/23/2023 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 on Tuesday 06/19 for dehydration. Guerline Davila LPN 06/20/2024 4:11 PM Signed So noted. Scheduled adjusted Allergies As of Date: 06/20/2024 Noted Allergy Reaction TIZANIDINE 10/07/2023 1 - Mental Status Change 14 - Other: See Comments Comments: Made her feel like in another world. Very dry mouth. Stumbling/falling AMOXICILLIN 07/14/2005 4 - Hives ASPIRIN 01/30/2009 Comments: Hives, shortness of breath SULFA (SULFONAMIDE ANTIBIOTICS) 07/14/2005 4 - Hives Date Reviewed: 06/01/2024 Reviewed by: Paola De La Cruz MA - Fully Assessed Reason for Visit: Patient Update [1234] Prescriptions as of 06/20/2024 - albuterol HFA (PROAIR HFA) 90 mcg/actuation inhaler Inhale 2 Puffs as instructed every 4 hours as needed for wheezing/shortness of breath. 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 - oxybutynin ER (DITROPAN XL) 10 mg 24 hr tablet Take 1 tablet by mouth every afternoon. - warfarin (COUMADIN) 5 mg tablet Take 1 tablet by mouth once daily. - montelukast (SINGULAIR) 10 mg tablet Take 10 mg by mouth daily at bedtime. - diclofenac (VOLTAREN ARTHRITIS PAIN) 1 % topical gel Apply 2 g to affected area four times daily. Takes as needed - cyclobenzaprine (FLEXERIL) 5 mg tablet Take 1-2 tablets by mouth two times a day as needed for muscle spasm. - lidocaine (LIDODERM) 5 % Apply 1 Patch as directed every 24 hours. Remove patch after 12 hours. Location: Back/ribs - Cholecalciferol, Vitamin D3, 50 mcg (2,000 unit) cap Take 1 capsule by mouth once daily. - Magnesium Oxide 250 mg magnesium tab Take 1 tablet by mouth once daily. - cyanocobalamin (VITAMIN B-12) 1,000 mcg tab Take 1 tablet by mouth once daily. - atorvastatin (LIPITOR) 10 mg tablet Take 1 tablet by mouth once daily. - gabapentin (NEURONTIN) 300 mg capsule Take 2 capsules by mouth daily at bedtime AND 1 capsule every morning. Do all this for 180 days. - glimepiride (AMARYL) 2 mg tablet Take 1 tablet by mouth two times a day with meals. - TENS unit and electrodes cmpk 1 Each once daily. - tens unit electrodes (TENS UNITS ELECTRODES) 2X2 pads Change pad every month as indicated - triamcinolone acetonide (KENALOG) 0.1 % cream Apply 1 application to affected area three times daily as needed. For rash on extremities and leg - budesonide-formoterol (SYMBICORT) 160-4.5 mcg/actuation inhaler Inhale 2 Puffs as instructed twice daily. ([facility] pulmonology) - blood sugar diagnostic (BLOOD GLUCOSE TEST) test strip Test blood sugar(s) 1 times daily. Dx: Type 2 DM - Controlled E11.9 Insulin: No - Lancets lancets Test blood sugar(s) 1 times daily. Dx: Type 2 DM - Controlled E11.9 Insulin: No Meds Comments as of 12/10/2019: Pt stating not taking glimepiride secondary to cost of Rx. 12/10/2019 Keon Herbert Problem List As Of Date 06/20/2024 Noted Resolved Congenital obstructive defects of renal pelvis *09/29/2005 CALCULUS OF KIDNEY [N20.0] 09/29/2005 Contact dermatitis and other eczema [692] 09/29/2005 09/16/2021 PALPITATIONS [R00.2] Obesity, unspecified [E66.9] 09/23/2023 ALLERGIC RHINITIS NOS [J30.9] Essential hypertension [I10] Contact dermatitis and other eczema, due to uns* 09/16/2021 Dizziness and giddiness [R42] 09/23/2023 Mild intermittent asthma without complication [* CALCANEAL SPUR [M77.30] 03/10/2008 Back Strain, recurrent [S39.012A] Hyperlipemia [E78.5] 12/19/2010 Diabetes mellitus type 2, controlled, without c* Rotator cuff tear [M75.100] 05/06/2011 DDD (degenerative disc disease), lumbar [M51.36] Muscle spasm [M62.838] Severe low back pain [M54.50] 12/28/2018 Atrial flutter (HCC) [I48.92] 04/12/2019 Anticoagulated on Coumadin [Z79.01] 04/12/2019 RAMESH (obstructive sleep apnea) [G47.33] 01/21/2021 Pacemaker [Z95.0] 01/21/2021 Bilateral carpal tunnel syndrome [G56.03] 01/21/2021 Pulmonary hypertension (HCC) [I27.20] 05/03/2023 Ulcer of right lower extremity with fat layer e*07/26/2023 Obesity, Class I, BMI 30-34.9 [E66.9] 09/23/2023 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 Today's INR 5.2 which is managed by [facility]. Brooke concerned with the amount of pain medication patient is talking due to her back pain. Patient had take 2 yesterday morning and 1 last night (Percocet). Patient does have an appointment to see pain management on 07/12. Daughter is concerned that pain medication is elevating patient's INR. Daughter wanting to know if there are any other pain medications that will help with pain but will not raise INRs through the roof? If staff cannot reach daughter on her cell phone, please call daughters work number. Please review and advise, VLAD Birch Liza D, MD 06/10/2024 9:17 AM Signed Probably the Tylenol on the Percocet is contributing to elevated INR. If cardiology lowered the dose, it could be adequate to balance out the pain med and lowering pain med might result in INR getting to low, but one option would be to switch to oxycodone if needing to use pain med longer. Avoiding NSAIDs already (or should be) Other issue would be if patient not eating as well due to pain in which case this would be the reason and not just the pain med. See if patient eating normally. Carolina Rojo LPN 06/10/2024 11:40 AM Signed LEFT MESSAGE FOR PATIENT's daughter TO CALL OFFICE. Hilaria Avina RN 06/10/2024 11:50 AM Signed Daughter, Brooke, returned call and given provider's message below. Brooke reports patient is eating normally, they are making sure of that. Reports patient will be off of coumadin this weekend per Dr. Emerson. Brooke would like pcp to send rx for the oxycodone to [facility]. Joon Lopez MD 06/10/2024 1:14 PM Signed Written as if for 7 days since new med and will see whether works and whether will need to stay on. Enough to take 4 per day. Can take if 1 4 times daily or some doses 2 pill (see if able to stay at 3 pills per day or less as she has been) The following approved medication requests have been transmitted electronically. Requested Prescriptions Signed Prescriptions Disp Refills oxyCODONE IR (ROXICODONE) 5 mg immediate release tablet 28 tablet 0 Sig: Take 1-2 tablets by mouth two times a day as needed for pain for up to 7 days. Authorizing Provider: JOON LOPEZ MD Babulski, Amanda, RN 06/10/2024 1:23 PM Signed Pts daughter called and is notified of providers message and instructions. She voices understanding, and states she will move the Percocet to her house so she can't get into it. She said hopefully we can get her INR under control. Nya De Oliveira RN Allergies As of Date: 06/10/2024 Noted Allergy Reaction TIZANIDINE 10/07/2023 1 - Mental Status Change 14 - Other: See Comments Comments: Made her feel like in another world. Very dry mouth. Stumbling/falling AMOXICILLIN 07/14/2005 4 - Hives ASPIRIN 01/30/2009 Comments: Hives, shortness of breath SULFA (SULFONAMIDE ANTIBIOTICS) 07/14/2005 4 - Hives Date Reviewed: 06/01/2024 Reviewed by: Paola De La Cruz MA - Fully Assessed Reason for Visit: Patient Question [1477] Visit Diagnoses:Rib pain on right side [R07.81] Comment:Okay percocet as needed for severe pain Severe low back pain [M54.50] Comment:Chronic back pain with occasional episodes severe back pain when needs Percocet.Sporadic episodes are infrequent.Needs to have med on hand to treat prn DDD (degenerative disc disease), lumbar [M51.36] Order(s):oxyCODONE IR (ROXICODONE) 5 mg immediate release tabletTake 1-2 tablets by mouth two times a day as needed for pain for up to 7 days.Disp: 28 tabletRfl: 0 Prescriptions as of 06/10/2024 - oxyCODONE IR (ROXICODONE) 5 mg immediate release tablet Take 1-2 tablets by mouth two times a day as needed for pain for up to 7 days. - albuterol HFA (PROAIR HFA) 90 mcg/actuation inhaler Inhale 2 Puffs as instructed every 4 hours as needed for wheezing/shortness of breath. 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 - oxybutynin ER (DITROPAN XL) 10 mg 24 hr tablet Take 1 tablet by mouth every afternoon. - warfarin (COUMADIN) 5 mg tablet Take 1 tablet by mouth once daily. - montelukast (SINGULAIR) 10 mg tablet Take 10 mg by mouth daily at bedtime. - diclofenac (VOLTAREN ARTHRITIS PAIN) 1 % topical gel Apply 2 g to affected area four times daily. Takes as needed - cyclobenzaprine (FLEXERIL) 5 mg tablet Take 1-2 tablets by mouth two times a day as needed for muscle spasm. - lidocaine (LIDODERM) 5 % Apply 1 P (more content not included)... [facility]INTMWS[facility] KEISHA RED ([id number]) 1945 F Date Time Provider Department 06/08/24 JOON LOPEZ INTMWS During your visit today, we recorded the following information about you: Roopa Edgar RN 06/08/2024 9:42 AM Signed Soren with [facility] calls to let provider know that patient was seen for an evaluation visit today. Soren will extend nursing services for two more weeks for uncontrolled back pain. Today patient rates the pain a 10/10. Patient has a referral to Dr. Calero but appointment isn't scheduled until 07.12.2024. Reviewed pain medications on order (cyclobenzaprine, percocet, and gabapentin) with Soren. Patient has OTC acetaminophen and methocarbamol on hand which are not on current med list. Soren will remove those medications. Any other recommendations for pain control from provider. VLAD Reyna Liza D, MD 06/08/2024 7:33 PM Signed Does the Percocet or flexeril help at all for the pain? Guerline Davila LPN 06/09/2024 9:56 AM Signed Spoke with Soren with [facility] Soren states that he believes she only stated the Percocet a couple days ago. Daughter had the medication hidden away because was worried she would take too many. He states that pain level was 10/10 at first but then by the end that number came down. Patient has OTC acetaminophen and methocarbamo on hand ( not of list) but the OTC acetaminophen has been causing her INR to go up so crude tester want her to titrate this down. Methocarbamo was on hand but not on list so he has asked daughter to put this away for now. Patient has tens on and medication seems to be helping so thinks she is okay for now. Nurse will be going over tomorrow for another INR and pain will be reassess at that time. Joon Lopez MD 06/09/2024 10:15 PM Signed Noted Glad pain getting better. She was able to control pain without Percocet for quite a while. Was tending to get confused so had decided to stop having Percocet on hand. Agree with TENS for pain control (has helped for a long time). Will await progress report. Closing this encounter. New encounter when Soren calls back Allergies As of Date: 06/08/2024 Noted Allergy Reaction TIZANIDINE 10/07/2023 1 - Mental Status Change 14 - Other: See Comments Comments: Made her feel like in another world. Very dry mouth. Stumbling/falling AMOXICILLIN 07/14/2005 4 - Hives ASPIRIN 01/30/2009 Comments: Hives, shortness of breath SULFA (SULFONAMIDE ANTIBIOTICS) 07/14/2005 4 - Hives Date Reviewed: 06/01/2024 Reviewed by: Paola De La Cruz MA - Fully Assessed Reason for Visit: Patient Update [1234] Prescriptions as of 06/09/2024 - albuterol HFA (PROAIR HFA) 90 mcg/actuation inhaler Inhale 2 Puffs as instructed every 4 hours as needed for wheezing/shortness of breath. 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 - oxybutynin ER (DITROPAN XL) 10 mg 24 hr tablet Take 1 tablet by mouth every afternoon. - warfarin (COUMADIN) 5 mg tablet Take 1 tablet by mouth once daily. - montelukast (SINGULAIR) 10 mg tablet Take 10 mg by mouth daily at bedtime. - diclofenac (VOLTAREN ARTHRITIS PAIN) 1 % topical gel Apply 2 g to affected area four times daily. Takes as needed - cyclobenzaprine (FLEXERIL) 5 mg tablet Take 1-2 tablets by mouth two times a day as needed for muscle spasm. - lidocaine (LIDODERM) 5 % Apply 1 Patch as directed every 24 hours. Remove patch after 12 hours. Location: Back/ribs - oxyCODONE-acetaminoph en (PERCOCET) 5-325 mg tablet Take 1 tablet by mouth two times a day as needed (for severe back pain and foot pain) for up to 30 days. - Cholecalciferol, Vitamin D3, 50 mcg (2,000 unit) cap Take 1 capsule by mouth once daily. - Magnesium Oxide 250 mg magnesium tab Take 1 tablet by mouth once daily. - cyanocobalamin (VITAMIN B-12) 1,000 mcg tab Take 1 tablet by mouth once daily. - atorvastatin (LIPITOR) 10 mg tablet Take 1 tablet by mouth once daily. - gabapentin (NEURONTIN) 300 mg capsule Take 2 capsules by mouth daily at bedtime AND 1 capsule every morning. Do all this for 180 days. - glimepiride (AMARYL) 2 mg tablet Take 1 tablet by mouth two times a day with meals. - TENS unit and electrodes cmpk 1 Each once daily. - tens unit electrodes (TENS UNITS ELECTRODES) 2X2 pads Change pad every month as indicated - triamcinolone acetonide (KENALOG) 0.1 % cream Apply 1 application to affected area three times daily as needed. For rash on extremities and leg - budesonide-formoterol (SYMBICORT) 160-4.5 mcg/actuation inhaler Inhale 2 Puffs as instructed twice daily. ([facility] pulmonology) - blood sugar diagnostic (BLOOD GLUCOSE TEST) test strip Test blood sugar(s) 1 times daily. Dx: Type 2 DM - Controlled E11.9 Insulin: No - Lancets lancets Test blood sugar(s) (more content not included)... Normal [facility] Center Telephone (INTMWS) KEISHA RED ([id number]) 1945 F Date Time Provider Department 06/08/24 XOCHITL CASTREJON INTMWS During your visit today, we recorded the following information about you: Jamari Maki MA 06/08/2024 11:36 AM Signed Pt failed to show to geriatric consult. No show letter sent to patient. Jamari Maki MA Allergies As of Date: 06/08/2024 Noted Allergy Reaction TIZANIDINE 10/07/2023 1 - Mental Status Change 14 - Other: See Comments Comments: Made her feel like in another world. Very dry mouth. Stumbling/falling AMOXICILLIN 07/14/2005 4 - Hives ASPIRIN 01/30/2009 Comments: Hives, shortness of breath SULFA (SULFONAMIDE ANTIBIOTICS) 07/14/2005 4 - Hives Date Reviewed: 06/01/2024 Reviewed by: Paola De La Cruz MA - Fully Assessed Reason for Visit: No Show [8788] Prescriptions as of 06/08/2024 - albuterol HFA (PROAIR HFA) 90 mcg/actuation inhaler Inhale 2 Puffs as instructed every 4 hours as needed for wheezing/shortness of breath. 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 - oxybutynin ER (DITROPAN XL) 10 mg 24 hr tablet Take 1 tablet by mouth every afternoon. - warfarin (COUMADIN) 5 mg tablet Take 1 tablet by mouth once daily. - montelukast (SINGULAIR) 10 mg tablet Take 10 mg by mouth daily at bedtime. - diclofenac (VOLTAREN ARTHRITIS PAIN) 1 % topical gel Apply 2 g to affected area four times daily. Takes as needed - cyclobenzaprine (FLEXERIL) 5 mg tablet Take 1-2 tablets by mouth two times a day as needed for muscle spasm. - lidocaine (LIDODERM) 5 % Apply 1 Patch as directed every 24 hours. Remove patch after 12 hours. Location: Back/ribs - oxyCODONE-acetaminoph en (PERCOCET) 5-325 mg tablet Take 1 tablet by mouth two times a day as needed (for severe back pain and foot pain) for up to 30 days. - Cholecalciferol, Vitamin D3, 50 mcg (2,000 unit) cap Take 1 capsule by mouth once daily. - Magnesium Oxide 250 mg magnesium tab Take 1 tablet by mouth once daily. - cyanocobalamin (VITAMIN B-12) 1,000 mcg tab Take 1 tablet by mouth once daily. - atorvastatin (LIPITOR) 10 mg tablet Take 1 tablet by mouth once daily. - gabapentin (NEURONTIN) 300 mg capsule Take 2 capsules by mouth daily at bedtime AND 1 capsule every morning. Do all this for 180 days. - glimepiride (AMARYL) 2 mg tablet Take 1 tablet by mouth two times a day with meals. - TENS unit and electrodes cmpk 1 Each once daily. - tens unit electrodes (TENS UNITS ELECTRODES) 2X2 pads Change pad every month as indicated - triamcinolone acetonide (KENALOG) 0.1 % cream Apply 1 application to affected area three times daily as needed. For rash on extremities and leg - budesonide-formoterol (SYMBICORT) 160-4.5 mcg/actuation inhaler Inhale 2 Puffs as instructed twice daily. ([facility] pulmonology) - blood sugar diagnostic (BLOOD GLUCOSE TEST) test strip Test blood sugar(s) 1 times daily. Dx: Type 2 DM - Controlled E11.9 Insulin: No - Lancets lancets Test blood sugar(s) 1 times daily. Dx: Type 2 DM - Controlled E11.9 Insulin: No Meds Comments as of 12/10/2019: Pt stating not taking glimepiride secondary to cost of Rx. 12/10/2019 Keon Herbert Problem List As Of Date 06/08/2024 Noted Resolved Congenital obstructive defects of renal pelvis *09/29/2005 CALCULUS OF KIDNEY [N20.0] 09/29/2005 Contact dermatitis and other eczema [692] 09/29/2005 09/16/2021 PALPITATIONS [R00.2] Obesity, unspecified [E66.9] 09/23/2023 ALLERGIC RHINITIS NOS [J30.9] Essential hypertension [I10] Contact dermatitis and other eczema, due to uns* 09/16/2021 Dizziness and giddiness [R42] 09/23/2023 Mild intermittent asthma without complication [* CALCANEAL SPUR [M77.30] 03/10/2008 Back Strain, recurrent [S39.012A] Hyperlipemia [E78.5] 12/19/2010 Diabetes mellitus type 2, controlled, without c* Rotator cuff tear [M75.100] 05/06/2011 DDD (degenerative disc disease), lumbar [M51.36] Muscle spasm [M62.838] Severe low back pain [M54.50] 12/28/2018 Atrial flutter (HCC) [I48.92] 04/12/2019 Anticoagulated on Coumadin [Z79.01] 04/12/2019 RAMESH (obstructive sleep apnea) [G47.33] 01/21/2021 Pacemaker [Z95.0] 01/21/2021 Bilateral carpal tunnel syndrome [G56.03] 01/21/2021 Pulmonary hypertension (HCC) [I27.20] 05/03/2023 Ulcer of right lower extremity with fat layer e*07/26/2023 Obesity, Class I, BMI 30-34.9 [E66.9] 09/23/2023 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 Patient was sent to ER. If patient still having urinary concerns needs to f/u with pcp for recheck. Carmela Kennedy LPN 06/03/2024 9:01 AM Signed Patient given results and verbalized understanding of instructions given. Carmela Kennedy LPN Allergies As of Date: 06/03/2024 Noted Allergy Reaction TIZANIDINE 10/07/2023 1 - Mental Status Change 14 - Other: See Comments Comments: Made her feel like in another world. Very dry mouth. Stumbling/falling AMOXICILLIN 07/14/2005 4 - Hives ASPIRIN 01/30/2009 Comments: Hives, shortness of breath SULFA (SULFONAMIDE ANTIBIOTICS) 07/14/2005 4 - Hives Date Reviewed: 06/01/2024 Reviewed by: Paola De La Cruz MA - Fully Assessed Reason for Visit: Results [95] Prescriptions as of 06/03/2024 - albuterol HFA (PROAIR HFA) 90 mcg/actuation inhaler Inhale 2 Puffs as instructed every 4 hours as needed for wheezing/shortness of breath. 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 - oxybutynin ER (DITROPAN XL) 10 mg 24 hr tablet Take 1 tablet by mouth every afternoon. - warfarin (COUMADIN) 5 mg tablet Take 1 tablet by mouth once daily. - montelukast (SINGULAIR) 10 mg tablet Take 10 mg by mouth daily at bedtime. - diclofenac (VOLTAREN ARTHRITIS PAIN) 1 % topical gel Apply 2 g to affected area four times daily. Takes as needed - cyclobenzaprine (FLEXERIL) 5 mg tablet Take 1-2 tablets by mouth two times a day as needed for muscle spasm. - lidocaine (LIDODERM) 5 % Apply 1 Patch as directed every 24 hours. Remove patch after 12 hours. Location: Back/ribs - oxyCODONE-acetaminoph en (PERCOCET) 5-325 mg tablet Take 1 tablet by mouth two times a day as needed (for severe back pain and foot pain) for up to 30 days. - Cholecalciferol, Vitamin D3, 50 mcg (2,000 unit) cap Take 1 capsule by mouth once daily. - Magnesium Oxide 250 mg magnesium tab Take 1 tablet by mouth once daily. - cyanocobalamin (VITAMIN B-12) 1,000 mcg tab Take 1 tablet by mouth once daily. - atorvastatin (LIPITOR) 10 mg tablet Take 1 tablet by mouth once daily. - gabapentin (NEURONTIN) 300 mg capsule Take 2 capsules by mouth daily at bedtime AND 1 capsule every morning. Do all this for 180 days. - glimepiride (AMARYL) 2 mg tablet Take 1 tablet by mouth two times a day with meals. - TENS unit and electrodes cmpk 1 Each once daily. - tens unit electrodes (TENS UNITS ELECTRODES) 2X2 pads Change pad every month as indicated - triamcinolone acetonide (KENALOG) 0.1 % cream Apply 1 application to affected area three times daily as needed. For rash on extremities and leg - budesonide-formoterol (SYMBICORT) 160-4.5 mcg/actuation inhaler Inhale 2 Puffs as instructed twice daily. ([facility] pulmonology) - blood sugar diagnostic (BLOOD GLUCOSE TEST) test strip Test blood sugar(s) 1 times daily. Dx: Type 2 DM - Controlled E11.9 Insulin: No - Lancets lancets Test blood sugar(s) 1 times daily. Dx: Type 2 DM - Controlled E11.9 Insulin: No Meds Comments as of 12/10/2019: Pt stating not taking glimepiride secondary to cost of Rx. 12/10/2019 Keon Herbert Problem List As Of Date 06/03/2024 Noted Resolved Congenital obstructive defects of renal pelvis *09/29/2005 CALCULUS OF KIDNEY [N20.0] 09/29/2005 Contact dermatitis and other eczema [692] 09/29/2005 09/16/2021 PALPITATIONS [R00.2] Obesity, unspecified [E66.9] 09/23/2023 ALLERGIC RHINITIS NOS [J30.9] Essential hypertension [I10] Contact dermatitis and other eczema, due to uns* 09/16/2021 Dizziness and giddiness [R42] 09/23/2023 Mild intermittent asthma without complication [* CALCANEAL SPUR [M77.30] 03/10/2008 Back Strain, recurrent [S39.012A] Hyperlipemia [E78.5] 12/19/2010 Diabetes mellitus type 2, controlled, without c* Rotator cuff tear [M75.100] 05/06/2011 DDD (degenerative disc disease), lumbar [M51.36] Muscle spasm [M62.838] Severe low back pain [M54.50] 12/28/2018 Atrial flutter (HCC) [I48.92] 04/12/2019 Anticoagulated on Coumadin [Z79.01] 04/12/2019 RAMESH (obstructive sleep apnea) [G47.33] 01/21/2021 Pacemaker [Z95.0] 01/21/2021 Bilateral carpal tunnel syndrome [G56.03] 01/21/2021 Pulmonary hypertension (HCC) [I27.20] 05/03/2023 Ulcer of right lower extremity with fat layer e*07/26/2023 Obesity, Class I, BMI 30-34.9 [E66.9] 09/23/2023 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 Mixed microbiota can be due to???urine???contamin ation with skin bacteria at time of collection or presence of a long-term urinary catheter. If a new culture is needed, please consider re-education of the patient on proper midstream collection technique or straight catheterization for???urine???collect ion. Normal [facility] Comment on above: Performed By: #### 6 30-4 ####[facility] LABCLIA [id number] [address] [facility] CNOVon 06-01-2024 CNOV Office Visit (UCWSTR ) NEDAKEISHA L ([id number]) 1945 F Date Time Provider Department 06/01/24 4:45 PM CLARISSE JOYCE [facility] During your visit today, we recorded the following information about you: Temperature Pulse Respiration Blood pressure 97.8 degrees 86/minute 21/minute 150/76 Weight 86.5 kg Clarisse Joyce APRN.FRONT DESK MONITOR 06/01/2024 5:38 PM Signed This note was created using [employer]. Subjective Keisha Red is a 79 year old female. 79 year old female with PMH aflutter, HTN, hyperlipidemia, asthma, RAMESH, DM, DDD presents for complaints of possible UTI Acute onset Started today Per home health nurse she was hallucinating. She had weakness, and almost fell while going out of door prior to arrival Of note, patient was evaluated and admitted to [facility] At that time she was evaluated for falls and found to have a UTI Presents with her son today, with concerns she has UTI again. Denies abdominal pain Denies N/V/D Denies burning, frequency, or urgency Patient denies pain. The history is provided by the patient. No english language learner tutor was used. 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 Agudelo No date: Dizziness and giddiness No date: Muscle spasm No date: Obesity, unspecified No date: Palpitations 05/03/2023: Pulmonary hypertension (HCC) 12/06/11: Shoulder dislocation Comment: Right shoulder s/p fall with reduction at [facility] No date: Type II or unspecified type diabetes mellitus without mention of complication, not stated as uncontrolled No date: Unspecified asthma(493.90) No date: Unspecified essential hypertension PAST SURGICAL HISTORY 1970s: APPENDECTOMY 09/25/2020: INCISE FINGER TENDON SHEATH; Right Comment: right middle trigger finger release 03/31/2019: PACEMAKER No date: PAST SURGICAL HISTORY OF; Left Comment: left middle trigger finger release 01/23/2021: REVISE MEDIAN N/CARPAL TUNNEL SURG Comment: Bilateral carpal tunnel release and left middle trigger finger release ALLERGIES Tizanidine, Amoxicillin, Aspirin, and Sulfa (Sulfonamide Antibiotics) MEDICATIONS albuterol HFA (PROAIR HFA) 90 mcg/actuation inhaler Inhale 2 Puffs as instructed every 4 hours as needed for wheezing/shortness of breath. 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 oxybutynin ER (DITROPAN XL) 10 mg 24 hr tablet Take 1 tablet by mouth every afternoon. warfarin (COUMADIN) 5 mg tablet Take 1 tablet by mouth once daily. montelukast (SINGULAIR) 10 mg tablet Take 10 mg by mouth daily at bedtime. diclofenac (VOLTAREN ARTHRITIS PAIN) 1 % topical gel Apply 2 g to affected area four times daily. Takes as needed cyclobenzaprine (FLEXERIL) 5 mg tablet Take 1-2 tablets by mouth two times a day as needed for muscle spasm. lidocaine (LIDODERM) 5 % Apply 1 Patch as directed every 24 hours. Remove patch after 12 hours. Location: Back/ribs oxyCODONE-acetaminoph en (PERCOCET) 5-325 mg tablet Take 1 tablet by mouth two times a day as needed (for severe back pain and foot pain) for up to 30 days. Cholecalciferol, Vitamin D3, 50 mcg (2,000 unit) cap Take 1 capsule by mouth once daily. Magnesium Oxide 250 mg magnesium tab Take 1 tablet by mouth once daily. cyanocobalamin (VITAMIN B-12) 1,000 mcg tab Take 1 tablet by mouth once daily. atorvastatin (LIPITOR) 10 mg tablet Take 1 tablet by mouth once daily. gabapentin (NEURONTIN) 300 mg capsule Take 2 capsules by mouth daily at bedtime AND 1 capsule every morning. Do all this for 180 days. glimepiride (AMARYL) 2 mg tablet Take 1 tablet by mouth two times a day with meals. TENS unit and electrodes cmpk 1 Each once daily. tens unit electrodes (TENS UNITS ELECTRODES) 2X2 pads Change pad every month as indicated triamcinolone acetonide (KENALOG) 0.1 % cream Apply 1 application to affected area three times daily as needed. For rash on extremities and leg budesonide-formoterol (SYMBICORT) 160-4.5 mcg/actuation inhaler Inhale 2 Puffs as instructed twice daily. ([facility] pulmonology) blood sugar diagnostic (BLOOD GLUCOSE TEST) test strip Test blood sugar(s) 1 times daily. Dx: Type 2 DM - Controlled E11.9 Insulin: No Lancets lancets Test blood sugar(s) 1 times daily. Dx: Type 2 DM - Controlled E11.9 Insulin: No FAMILY HISTORY Problem Relation Age of Onset Diabetes Mother Coronary Artery Disease Father Cancer Sister lung Migraines Son other (nephrolithiasis) Son Hypertension Son Migraines Daughter Social History Tobacco Use Smoki (more content not included)... Normal [facility] CNPNon 06-01-2024 CNPN Telephone (INTMWS) KEISHA RED ([id number]) 1945 F Date Time Provider Department 06/01/24 JOON LOPEZ INTMWS During your visit today, we recorded the following information about you: Tamy Donis LPN 06/01/2024 3:23 PM Signed Soren from [facility] calling patient is complaining of more back pain, her TENS unit broke. Family is trying to get another one for her. Daughter was asking for pain management referral, not Dr Agudelo, she was saying Dr Hodges here in [place]. Pending consult, needs diagnosis. Please advise Trini Tang APRN.REDEYE GUNNER 06/02/2024 2:29 PM Signed Ok please process Guerline Davila LPN 06/02/2024 2:50 PM Signed Soren from [facility] notified of providers message and verbalized understanding. Consult sent to Dr. Hodges's office. Allergies As of Date: 06/01/2024 Noted Allergy Reaction TIZANIDINE 10/07/2023 1 - Mental Status Change 14 - Other: See Comments Comments: Made her feel like in another world. Very dry mouth. Stumbling/falling AMOXICILLIN 07/14/2005 4 - Hives ASPIRIN 01/30/2009 Comments: Hives, shortness of breath SULFA (SULFONAMIDE ANTIBIOTICS) 07/14/2005 4 - Hives Date Reviewed: 06/01/2024 Reviewed by: Paola De La Cruz MA - Fully Assessed Reason for Visit: Orders [681] Primary Visit Diagnosis:Severe low back pain [M54.50] Other Visit Diagnosis:DDD (degenerative disc disease), lumbar [M51.36] Order(s):CONSULT TO PAIN MGT [20000131] Order #: [id number]: 1 FUTURE Prescriptions as of 06/02/2024 - albuterol HFA (PROAIR HFA) 90 mcg/actuation inhaler Inhale 2 Puffs as instructed every 4 hours as needed for wheezing/shortness of breath. 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 - oxybutynin ER (DITROPAN XL) 10 mg 24 hr tablet Take 1 tablet by mouth every afternoon. - warfarin (COUMADIN) 5 mg tablet Take 1 tablet by mouth once daily. - montelukast (SINGULAIR) 10 mg tablet Take 10 mg by mouth daily at bedtime. - diclofenac (VOLTAREN ARTHRITIS PAIN) 1 % topical gel Apply 2 g to affected area four times daily. Takes as needed - cyclobenzaprine (FLEXERIL) 5 mg tablet Take 1-2 tablets by mouth two times a day as needed for muscle spasm. - lidocaine (LIDODERM) 5 % Apply 1 Patch as directed every 24 hours. Remove patch after 12 hours. Location: Back/ribs - oxyCODONE-acetaminoph en (PERCOCET) 5-325 mg tablet Take 1 tablet by mouth two times a day as needed (for severe back pain and foot pain) for up to 30 days. - Cholecalciferol, Vitamin D3, 50 mcg (2,000 unit) cap Take 1 capsule by mouth once daily. - Magnesium Oxide 250 mg magnesium tab Take 1 tablet by mouth once daily. - cyanocobalamin (VITAMIN B-12) 1,000 mcg tab Take 1 tablet by mouth once daily. - atorvastatin (LIPITOR) 10 mg tablet Take 1 tablet by mouth once daily. - gabapentin (NEURONTIN) 300 mg capsule Take 2 capsules by mouth daily at bedtime AND 1 capsule every morning. Do all this for 180 days. - glimepiride (AMARYL) 2 mg tablet Take 1 tablet by mouth two times a day with meals. - TENS unit and electrodes cmpk 1 Each once daily. - tens unit electrodes (TENS UNITS ELECTRODES) 2X2 pads Change pad every month as indicated - triamcinolone acetonide (KENALOG) 0.1 % cream Apply 1 application to affected area three times daily as needed. For rash on extremities and leg - budesonide-formoterol (SYMBICORT) 160-4.5 mcg/actuation inhaler Inhale 2 Puffs as instructed twice daily. ([facility] pulmonology) - blood sugar diagnostic (BLOOD GLUCOSE TEST) test strip Test blood sugar(s) 1 times daily. Dx: Type 2 DM - Controlled E11.9 Insulin: No - Lancets lancets Test blood sugar(s) 1 times daily. Dx: Type 2 DM - Controlled E11.9 Insulin: No Meds Comments as of 12/10/2019: Pt stating not taking glimepiride secondary to cost of Rx. 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 CALCULUS OF KIDNEY [N20.0] 09/29/2005 Contact dermatitis and other eczema [692] 09/29/2005 09/16/2021 PALPITATIONS [R00.2] Obesity, unspecified [E66.9] 09/23/2023 ALLERGIC RHINITIS NOS [J30.9] Essential hypertension [I10] Contact dermatitis and other eczema, due to uns* 09/16/2021 Dizziness and giddiness [R42] 09/23/2023 Mild intermittent asthma without complication [* CALCANEAL SPUR [M77.30] 03/10/2008 Back Strain, recurrent [S39.012A] Hyperlipemia [E78.5] 12/19/2010 Diabetes mellitus type 2, controlled, without c* Rotator cuff tear [M75.100] 05/06/2011 DDD (degenerative disc disease), lumbar [M51.36] Muscle spasm [M62.838] Severe low back pain [M54.50] 12/28/2018 Atrial flutter (HCC) [I48.92] 04/12/2019 Anticoagulated on Coumadin [Z79.01] 04/12/2019 RAMESH (obstructive sleep apnea) [G47.33] 01/21/2021 Pacemak (more content not included)... Normal [facility] UA DIP, URINE (POC)on 2023 BILIRUBIN UA (POCT) Small Abnormal Negative [facility] CLARITY UA (POCT) Cloudy [facility] COLOR UA (POCT) Dark yellow [facility] GLUCOSE UA (POCT) Negative Negative mg/dL [facility] Hemoglobin Ql (U) Negative Negative [facility] Interpretation and review of laboratory results Abnormal [facility] KETONE UA (POCT) Negative Negative mg/dL [facility] LEUKOCYTES UA (POCT) Small Abnormal Negative [facility] NITRITE UA (POCT) Negative Negative [facility] PH UA (POCT) 5.5 4.5 - 8.0 [facility] Protein Ql (U) 30 mg/dL Abnormal Negative [facility] SPECIFIC GRAVITY UA (POCT) >=1.030 1.005 - 1.030 [facility] UROBILINOGEN UA (POCT) 0.2 Normal E.U./dL [facility] Location:[address], [place], [place], [id number] [place] [address] [facility] CNPN Telephone (INTMWS) KEISHA RED ([id number]) 1945 F Date Time Provider Department 05/12/24 JOON LOPEZ INTWS During your visit today, we recorded the following information about you: Sandy Nunez LPN 05/12/2024 11:11 AM Signed Prior authorization approved Payer: [employer] [phone] CaseId:[id number];Statu s:Approved;Review Type:Prior Auth;Coverage Start Date:04/27/2024;Cover age End Date:05/12/2025; Approval Details Authorized from April 27, 2024 to May 12, 2025 Electronic appeal: Not supported View History Medication Being Authorized cyclobenzaprine (FLEXERIL) 5 mg tablet Take 1-2 tablets by mouth two times a day as needed for muscle spasm. Dispense: 40 tablet Refills: 1 Start: 05/11/2024 Class: Normal This order has been released to its destination. To be filled at: [id number] - [place] [address] - [address] - [phone] Pharmacy notified. Allergies As of Date: 05/12/2024 Noted Allergy Reaction TIZANIDINE 10/07/2023 1 - Mental Status Change 14 - Other: See Comments Comments: Made her feel like in another world. Very dry mouth. Stumbling/falling AMOXICILLIN 07/14/2005 4 - Hives ASPIRIN 01/30/2009 Comments: Hives, shortness of breath SULFA (SULFONAMIDE ANTIBIOTICS) 07/14/2005 4 - Hives Date Reviewed: 05/11/2024 Reviewed by: Shena Georges MA - Fully Assessed Reason for Visit: Insurance Authorization [[id number]] Prescriptions as of 05/12/2024 - nitrofurantoin macrocrystal (MACRODANTIN) 100 mg capsule Take 100 mg by mouth two times a day. - oxybutynin ER (DITROPAN XL) 10 mg 24 hr tablet Take 1 tablet by mouth every afternoon. - warfarin (COUMADIN) 5 mg tablet Take 1 tablet by mouth once daily. - montelukast (SINGULAIR) 10 mg tablet Take 10 mg by mouth daily at bedtime. - diclofenac (VOLTAREN ARTHRITIS PAIN) 1 % topical gel Apply 2 g to affected area four times daily. Takes as needed - cyclobenzaprine (FLEXERIL) 5 mg tablet Take 1-2 tablets by mouth two times a day as needed for muscle spasm. - lidocaine (LIDODERM) 5 % Apply 1 Patch as directed every 24 hours. Remove patch after 12 hours. Location: Back/ribs - oxyCODONE-acetaminoph en (PERCOCET) 5-325 mg tablet Take 1 tablet by mouth two times a day as needed (for severe back pain and foot pain) for up to 30 days. - Cholecalciferol, Vitamin D3, 50 mcg (2,000 unit) cap Take 1 capsule by mouth once daily. - Magnesium Oxide 250 mg magnesium tab Take 1 tablet by mouth once daily. - cyanocobalamin (VITAMIN B-12) 1,000 mcg tab Take 1 tablet by mouth once daily. - albuterol HFA (PROAIR HFA) 90 mcg/actuation inhaler Inhale 2 Puffs as instructed every 4 hours as needed for wheezing/shortness of breath. 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 - gabapentin (NEURONTIN) 300 mg capsule Take 2 capsules by mouth daily at bedtime AND 1 capsule every morning. Do all this for 180 days. - glimepiride (AMARYL) 2 mg tablet Take 1 tablet by mouth two times a day with meals. - TENS unit and electrodes cmpk 1 Each once daily. - tens unit electrodes (TENS UNITS ELECTRODES) 2X2 pads Change pad every month as indicated - triamcinolone acetonide (KENALOG) 0.1 % cream Apply 1 application to affected area three times daily as needed. For rash on extremities and leg - budesonide-formoterol (SYMBICORT) 160-4.5 mcg/actuation inhaler Inhale 2 Puffs as instructed twice daily. ([facility] pulmonology) - blood sugar diagnostic (BLOOD GLUCOSE TEST) test strip Test blood sugar(s) 1 times daily. Dx: Type 2 DM - Controlled E11.9 Insulin: No - Lancets lancets Test blood sugar(s) 1 times daily. Dx: Type 2 DM - Controlled E11.9 Insulin: No Meds Comments as of 12/10/2019: Pt stating not taking glimepiride secondary to cost of Rx. 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 CALCULUS OF KIDNEY [N20.0] 09/29/2005 Contact dermatitis and other eczema [692] 09/29/2005 09/16/2021 PALPITATIONS [R00.2] Obesity, unspecified [E66.9] 09/23/2023 ALLERGIC RHINITIS NOS [J30.9] Essential hypertension [I10] Contact dermatitis and other eczema, due to uns* 09/16/2021 Dizziness and giddiness [R42] 09/23/2023 Mild intermittent asthma without complication [* CALCANEAL SPUR [M77.30] 03/10/2008 Back Strain, recurrent [S39.012A] Hyperlipemia [E78.5] 12/19/2010 Diabetes mellitus type 2, controlled, without c* Rotator cuff tear [M75.100] 05/06/2011 DDD (degenerative disc disease), lumbar [M51.36] Muscle spasm [M62.838] Severe low back pain [M54.50] 12/28/2018 Atrial flutter (HCC) [I48.92] 04/12/2019 Anticoagulated on Coumadin [Z79.01] 04/12/2019 RAMESH (obstructive sleep apnea) [G47.33] 01/21/2021 Pacemaker [Z95.0 (more content not included)... Normal [facility] CNOVon 05-11-2024 CNOV Office Visit (INTMWS ) KIESHA RED ([id number]) 1945 F Date Time Provider Department 05/11/24 2:20 PM JOON LOPEZ INTMWS During your visit today, we recorded the following information about you: Pulse Respiration Blood pressure Weight 76/minute 18/minute 138/72 89.6 kg Joon Lopez MD 06/18/2024 10:16 PM Signed Chief Complaint Patient presents with: Hospital Follow Up HPI Keisha Red is a 79 year old female who presents here today for a Hospital follow up. Pt here today for a [facility] follow up. Here with daughter, nAa Maria. Pt presented to [facility] ED on 05/04/24 with symptoms of confusion per family, recent fall and return secondary to concern for self care ability. Pt was admitted and discharged on 05/07/24. Questions about medication refills for pain. Has previously had Percocet from this office but Hospital gave her short term Rx due to severe pain from her fall. Pt prefers Percocet as this works for her daughter asking about other options. Pt is getting HH/PT through [facility] out to her home. Just started yesterday. Uro - Follows with Urology, takes Ditropan XL 10 mg once daily. Treated UTI with Macrobid 100 mg bid for 5 days. [facility] Report: HPI - General General Date of Admission: 05/04/24 Date of Service: 05/04/24 Chief Complaint: Confused per family, fall recently, return secondary to concernfor self care ability. HPI Narrative The patient is a 79 y/o F w/ PMHx: Chronic Thrombocytopenia, PAF/Flutter s/p ablation, Obesity, Asthma, Allergic Rhinitis, HTN, HLD, Hx complete HB s/p pacemaker, RAMESH, CKD stage III unclear subtype, Diabetes mellitus type II, Hx Frequent Complicated UTIs w/ persistent history of bilateral hydroureteronephrosis with previous history of distal ureteral stricture following with Dr. Samaniego with most recent intervention 12/2023 with cystoscopy with right ureteral stent placement 01/22/24 and unfortunately continued right hydronephrosis on repeat imaging with appropriate urine output and planned ongoing outpatient follow-up, recent ED evaluation earlier in the day at approximately 1519 with history of unfortunate fall with head injury and back discomfort noted to been on the gravel driveway stepping into a depression unfortunately leading to her falling backwards with no loss of consciousness butsince then some mid back discomfort extending over into the posterior right chest wall with a mild headache and bleeding from the occiput secondary to the fall onto the rocks prompting evaluation at that time with appropriate hemoglobin, INR 1.9, urinalysis noted to be turbid with occult blood 250, leukocyte Estrace 500, negative nitrite, urine RBC and a BCs greater than 100 although urine squamous epithelial cells unfortunately high 10-25 with 3+ urine bacteria however this was repeated and similarly even with appropriate squamous epithelial cells was still significant, CT of the brain with mild soft tissue swelling of the scalp posterior to the parietal lobes without any associated skull fracture or intracranial bleeding, CT cervical spine with no evidence for any acute fracture or subluxation, CT chest with no acute cardiopulmonary pathology and no evidence of any acute rib fractures, CT lumbar spine with no evidence of any acute fracture or subluxation with chronic findings discharged to home on cephalexin 5 mg p.o. every 8 x 7 days planned as well as Percocet small quantity for discomfort who now represents to the [facility] ED later in the evening on 05/04/24 secondary to family concern about inability for patient to becared for at home as no one can be with her tonight or tomorrow with unchanged cognition per EMS but family is worried about recurrent bleeding from the laceration to the posterior scalp prompting them to bring her back in. Althoughpatient per family has been confused in the emergency room she is alert and oriented to herself and recent events. EMS did report that she was at her baseline but has some chronic confusion. Patient notes that she has a constant dull aching throb in her right rib laterally as well as to her back cervical through lumbar worse with movement and even with turning in the bed. She does report still throbbing mild posterior headache but it is improving with no lightand sound sensitivity. Current evaluation includes T99, heart rate 64, BP 160/83, respiratory rate 18, 98% room air. Recent previous ED evaluation with CBC with WBC 9.2, hemoglobin 15.1, MCV 93.2, platelet 128 with increased neutrophils with lymphopenia, INR 1.9, BMP with sodium 135, BUN/creatinine 12/1.0, GFR 57, glucose 168, UA evaluation as noted above. Urine culture pending from recent ED evaluation prior. In the ED upon re-evaluation patient ministered Brickeys 1 tab p.o. x 1 and IV Rocephin 1 g x 1. RAD/Chest 1 View (Portable) IMPRESSION: No ac (more content not included)... Normal [facility] 05-11-2024 CNPN Telephone (INTMWS) KEISHA RED ([id number]) 1945 F Date Time Provider Department 05/11/24 JOON LOPEZ INTMWS During your visit today, we recorded the following information about you: Yuko Ordonez RN 05/11/2024 1:46 PM Signed Steffi VILA calling from [facility] to report plan of care for patient and occupational therapy will visit patient 1 time a week for 5 weeks. Occupational therapy will work with patient on safety and IAdls. No call back needed. VLAD Birch Rosa, RN ELIGIBILITY.[facility] 05/11/2024 2:36 PM Signed Noted, agree. Allergies As of Date: 05/11/2024 Noted Allergy Reaction TIZANIDINE 10/07/2023 1 - Mental Status Change 14 - Other: See Comments Comments: Made her feel like in another world. Very dry mouth. Stumbling/falling AMOXICILLIN 07/14/2005 4 - Hives ASPIRIN 01/30/2009 Comments: Hives, shortness of breath SULFA (SULFONAMIDE ANTIBIOTICS) 07/14/2005 4 - Hives Date Reviewed: 05/11/2024 Reviewed by: Shena Georges MA - Fully Assessed Reason for Visit: OT Plan of Care [Other] Prescriptions as of 05/11/2024 - nitrofurantoin macrocrystal (MACRODANTIN) 100 mg capsule Take 100 mg by mouth two times a day. - oxybutynin ER (DITROPAN XL) 10 mg 24 hr tablet Take 1 tablet by mouth every afternoon. - Cholecalciferol, Vitamin D3, 50 mcg (2,000 unit) cap Take 1 capsule by mouth once daily. - Magnesium Oxide 250 mg magnesium tab Take 1 tablet by mouth once daily. - cyanocobalamin (VITAMIN B-12) 1,000 mcg tab Take 1 tablet by mouth once daily. - albuterol HFA (PROAIR HFA) 90 mcg/actuation inhaler Inhale 2 Puffs as instructed every 4 hours as needed for wheezing/shortness of breath. 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 - gabapentin (NEURONTIN) 300 mg capsule Take 2 capsules by mouth daily at bedtime AND 1 capsule every morning. Do all this for 180 days. - glimepiride (AMARYL) 2 mg tablet Take 1 tablet by mouth two times a day with meals. - TENS unit and electrodes cmpk 1 Each once daily. - tens unit electrodes (TENS UNITS ELECTRODES) 2X2 pads Change pad every month as indicated - triamcinolone acetonide (KENALOG) 0.1 % cream Apply 1 application to affected area three times daily as needed. For rash on extremities and leg - budesonide-formoterol (SYMBICORT) 160-4.5 mcg/actuation inhaler Inhale 2 Puffs as instructed twice daily. ([facility] pulmonology) - blood sugar diagnostic (BLOOD GLUCOSE TEST) test strip Test blood sugar(s) 1 times daily. Dx: Type 2 DM - Controlled E11.9 Insulin: No - Lancets lancets Test blood sugar(s) 1 times daily. Dx: Type 2 DM - Controlled E11.9 Insulin: No - warfarin (COUMADIN) 5 mg tablet Take 1 tablet by mouth once daily. - diclofenac (VOLTAREN ARTHRITIS PAIN) 1 % topical gel Apply 2 g to affected area four times daily. Meds Comments as of 12/10/2019: Pt stating not taking glimepiride secondary to cost of Rx. 12/10/2019 Keon Herbert Problem List As Of Date 05/11/2024 Noted Resolved Congenital obstructive defects of renal pelvis *09/29/2005 CALCULUS OF KIDNEY [N20.0] 09/29/2005 Contact dermatitis and other eczema [692] 09/29/2005 09/16/2021 PALPITATIONS [R00.2] Obesity, unspecified [E66.9] 09/23/2023 ALLERGIC RHINITIS NOS [J30.9] Essential hypertension [I10] Contact dermatitis and other eczema, due to uns* 09/16/2021 Dizziness and giddiness [R42] 09/23/2023 Mild intermittent asthma without complication [* CALCANEAL SPUR [M77.30] 03/10/2008 Back Strain, recurrent [S39.012A] Hyperlipemia [E78.5] 12/19/2010 Diabetes mellitus type 2, controlled, without c* Rotator cuff tear [M75.100] 05/06/2011 DDD (degenerative disc disease), lumbar [M51.36] Muscle spasm [M62.838] Severe low back pain [M54.50] 12/28/2018 Atrial flutter (HCC) [I48.92] 04/12/2019 Anticoagulated on Coumadin [Z79.01] 04/12/2019 RAMESH (obstructive sleep apnea) [G47.33] 01/21/2021 Pacemaker [Z95.0] 01/21/2021 Bilateral carpal tunnel syndrome [G56.03] 01/21/2021 Pulmonary hypertension (HCC) [I27.20] 05/03/2023 Ulcer of right lower extremity with fat layer e*07/26/2023 Obesity, Class I, BMI 30-34.9 [E66.9] 09/23/2023 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*09/23/2023 Encounter Status:Closed by YUKO ORDONEZ on 05/11/24 Normal [facility] Telephone (INTMWS) NEDAKEISHA Marie ([id number]) 1945 F Date Time Provider Department 05/11/24 JOON LOPEZ INTMWS During your visit today, we recorded the following information about you: Ira Peralta RN 05/11/2024 4:36 PM Signed MARLENA Clements with [facility] calling with plan of care for patient. Physical Therapy will be seeing patient 2 times per week for 4 weeks for lower extremity strength, transfer and gait training, balance and fall prevention. No call back needed if PCP agreeable. VLAD John Liza D, MD 05/11/2024 7:16 PM Signed Agreeable to POC Allergies As of Date: 05/11/2024 Noted Allergy Reaction TIZANIDINE 10/07/2023 1 - Mental Status Change 14 - Other: See Comments Comments: Made her feel like in another world. Very dry mouth. Stumbling/falling AMOXICILLIN 07/14/2005 4 - Hives ASPIRIN 01/30/2009 Comments: Hives, shortness of breath SULFA (SULFONAMIDE ANTIBIOTICS) 07/14/2005 4 - Hives Date Reviewed: 05/11/2024 Reviewed by: Shena Georges MA - Fully Assessed Reason for Visit: PT Plan of Care [Other] Prescriptions as of 05/11/2024 - nitrofurantoin macrocrystal (MACRODANTIN) 100 mg capsule Take 100 mg by mouth two times a day. - oxybutynin ER (DITROPAN XL) 10 mg 24 hr tablet Take 1 tablet by mouth every afternoon. - warfarin (COUMADIN) 5 mg tablet Take 1 tablet by mouth once daily. - montelukast (SINGULAIR) 10 mg tablet Take 10 mg by mouth daily at bedtime. - diclofenac (VOLTAREN ARTHRITIS PAIN) 1 % topical gel Apply 2 g to affected area four times daily. Takes as needed - cyclobenzaprine (FLEXERIL) 5 mg tablet Take 1-2 tablets by mouth two times a day as needed for muscle spasm. - lidocaine (LIDODERM) 5 % Apply 1 Patch as directed every 24 hours. Remove patch after 12 hours. Location: Back/ribs - oxyCODONE-acetaminoph en (PERCOCET) 5-325 mg tablet Take 1 tablet by mouth two times a day as needed (for severe back pain and foot pain) for up to 30 days. - Cholecalciferol, Vitamin D3, 50 mcg (2,000 unit) cap Take 1 capsule by mouth once daily. - Magnesium Oxide 250 mg magnesium tab Take 1 tablet by mouth once daily. - cyanocobalamin (VITAMIN B-12) 1,000 mcg tab Take 1 tablet by mouth once daily. - albuterol HFA (PROAIR HFA) 90 mcg/actuation inhaler Inhale 2 Puffs as instructed every 4 hours as needed for wheezing/shortness of breath. 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 - gabapentin (NEURONTIN) 300 mg capsule Take 2 capsules by mouth daily at bedtime AND 1 capsule every morning. Do all this for 180 days. - glimepiride (AMARYL) 2 mg tablet Take 1 tablet by mouth two times a day with meals. - TENS unit and electrodes cmpk 1 Each once daily. - tens unit electrodes (TENS UNITS ELECTRODES) 2X2 pads Change pad every month as indicated - triamcinolone acetonide (KENALOG) 0.1 % cream Apply 1 application to affected area three times daily as needed. For rash on extremities and leg - budesonide-formoterol (SYMBICORT) 160-4.5 mcg/actuation inhaler Inhale 2 Puffs as instructed twice daily. ([facility] pulmonology) - blood sugar diagnostic (BLOOD GLUCOSE TEST) test strip Test blood sugar(s) 1 times daily. Dx: Type 2 DM - Controlled E11.9 Insulin: No - Lancets lancets Test blood sugar(s) 1 times daily. Dx: Type 2 DM - Controlled E11.9 Insulin: No Meds Comments as of 12/10/2019: Pt stating not taking glimepiride secondary to cost of Rx. 12/10/2019 Keon Herbert Problem List As Of Date 05/11/2024 Noted Resolved Congenital obstructive defects of renal pelvis *09/29/2005 CALCULUS OF KIDNEY [N20.0] 09/29/2005 Contact dermatitis and other eczema [692] 09/29/2005 09/16/2021 PALPITATIONS [R00.2] Obesity, unspecified [E66.9] 09/23/2023 ALLERGIC RHINITIS NOS [J30.9] Essential hypertension [I10] Contact dermatitis and other eczema, due to uns* 09/16/2021 Dizziness and giddiness [R42] 09/23/2023 Mild intermittent asthma without complication [* CALCANEAL SPUR [M77.30] 03/10/2008 Back Strain, recurrent [S39.012A] Hyperlipemia [E78.5] 12/19/2010 Diabetes mellitus type 2, controlled, without c* Rotator cuff tear [M75.100] 05/06/2011 DDD (degenerative disc disease), lumbar [M51.36] Muscle spasm [M62.838] Severe low back pain [M54.50] 12/28/2018 Atrial flutter (HCC) [I48.92] 04/12/2019 Anticoagulated on Coumadin [Z79.01] 04/12/2019 RAMESH (obstructive sleep apnea) [G47.33] 01/21/2021 Pacemaker [Z95.0] 01/21/2021 Bilateral carpal tunnel syndrome [G56.03] 01/21/2021 Pulmonary hypertension (HCC) [I27.20] 05/03/2023 Ulcer of right lower extremity with fat layer e*07/26/2023 Obesity, Class I, BMI 30-34.9 [E66.9] 09/23/2023 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*09/23/2023 Encounter Status:Closed by JOON LOPEZ on 05/11/24 [facility] 05-10-2024 CNPN Telephone (INTWS) KEISHA RED ([id number]) 1945 F Date Time Provider Department 05/10/24 JOON LOPEZ During your visit today, we recorded the following information about you: Miguelina Parson, RN 05/10/2024 4:52 PM Signed Soren nurse from [facility] HH calling with admission plan of care. [facility] nursing will see 2 times per week for 1 week then 1 time per week for 4 weeks. Confirming pt's med list. Per [facility] discharge med list, Metformin was stopped by hospitalist and Glimepiride was for 2 mg take 1 tablet once a day. Soren noted that on prescription bottlle pt has at home the Glimepiride is ordered as 1 tablet two times a day with meals which is confirmed from [facility] med list. He is going to continue having the pt take twice daily since Metformin was discontinued. He is unsure why the Metformin was discontinued. [place] H[place]1c done in [place] was 09/23/23 with result 6.5. Appears pt was to have repeated in February but was not done. Had other labs completed but no HgbA1c. Soren has no record of one being done either at [facility] recently. States he has a fasting glucose of 174 done on 05/07/24 at [facility]. Also asked if pt had active Percocet prescription as he found a bottle of both Percocet and an outdated bottle of Oxycodone. Family took both of those bottles out of the home. It appears last prescription for Percocet was given to pt on 10/07/23 for 30 tablets for up to 30 days so end date was 11/06/2023 which drops it off of pt's active med list. He is going to have family keep it out of the house for now as pt keeps falling. PT will be in to evaluate for falls. Pt also has a prescription for Methocarbamol which he sent home with family as well. If any changes or concerns with the above, please call Soren back. Otherwise no call needed. Per note on 05/06, pt is not being scheduled for a hospital follow up and is to just keep her OV appt on 06/22/24. Joon Lopez MD 05/10/2024 8:23 PM Signed Looks like had some acute renal insufficiency during admission and eGFR dropped to 4 and Cr up to 1.22, so they stopped metformin. Also, their med list said she was on glimepiride once daily so was unchanged so kept at once daily on discharge, so did not look like they decided to lower her dose during the admission. Blood sugars 130 to 180s there. If she is eating well and blood sugars staying over 100, okay to stay on twice daily glimepiride. Can lower dose as needed. Okay to stay off metformin. eGFR was not that bad, but in case has issues with staying adequately hydrated, better to stay off it. Okay to keep off pain med given tendency to falls, and daughter worries about her tendency to confusion and memory issues. Ira Peralta RN 05/11/2024 8:24 AM Signed Detailed message left on Chris's identified and secure Home Health voicemail, of message below. Ira Peralta RN Allergies As of Date: 05/10/2024 Noted Allergy Reaction TIZANIDINE 10/07/2023 1 - Mental Status Change 14 - Other: See Comments Comments: Made her feel like in another world. Very dry mouth. Stumbling/falling AMOXICILLIN 07/14/2005 4 - Hives ASPIRIN 01/30/2009 Comments: Hives, shortness of breath SULFA (SULFONAMIDE ANTIBIOTICS) 07/14/2005 4 - Hives Date Reviewed: 03/22/2024 Reviewed by: Whitney Hammond APRN.[employer] - Fully Assessed Reason for Visit: Home health plan of care [Other] medication questions [Other] Prescriptions as of 05/11/2024 - Cholecalciferol, Vitamin D3, 50 mcg (2,000 unit) cap Take 1 capsule by mouth once daily. - Magnesium Oxide 250 mg magnesium tab Take 1 tablet by mouth once daily. - cyanocobalamin (VITAMIN B-12) 1,000 mcg tab Take 1 tablet by mouth once daily. - albuterol HFA (PROAIR HFA) 90 mcg/actuation inhaler Inhale 2 Puffs as instructed every 4 hours as needed for wheezing/shortness of breath. 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 - gabapentin (NEURONTIN) 300 mg capsule Take 2 capsules by mouth daily at bedtime AND 1 capsule every morning. Do all this for 180 days. - glimepiride (AMARYL) 2 mg tablet Take 1 tablet by mouth two times a day with meals. - TENS unit and electrodes cmpk 1 Each once daily. - tens unit electrodes (TENS UNITS ELECTRODES) 2X2 pads Change pad every month as indicated - triamcinolone acetonide (KENALOG) 0.1 % cream Apply 1 application to affected area three times daily as needed. For rash on extremities and leg - budesonide-formoterol (SYMBICORT) 160-4.5 mcg/actuation inhaler Inhale 2 Puffs as instructed twice daily. ([facility] pulmonology) - blood sugar diagnostic (BLOOD GLUCOSE TEST) test strip Test blood sugar(s) 1 times daily. Dx: Type 2 DM - Controlled E11.9 Insulin: No - Lancets lancets Test blood sugar(s) 1 times daily. Dx: Type 2 DM - Controlled E11.9 Insulin: No - warfarin (COUMADIN) 5 mg tablet Take (more content not included)... [facility] KE[facility]HA RED ([id number]) 1945 F Date Time Provider Department 05/06/24 JOON LOPEZ INTMWS During your visit today, we recorded the following information about you: Roopa Edgar, RN 05/06/2024 2:37 PM Signed Starr with [facility] HH calls to ask if provider would be willing to follow HH orders for SN, PT, OT, and SW following discharge from [facility] for fall with contusion/laceration of scalp, lumbar strain, and UTI. HH plans to see patient ThursdayMay 10 after discharge and asking for ok for Delay in SOC as well. Please review and advise, VLAD Reyna Terri, APRN.[employer] 05/06/2024 4:16 PM Signed OK for HHC. She has a PCP visit 06/22/2024, does she need to be seen sooner for hospital discharge follow up? Schedule appt if so. Sylwia Chang LPN 05/09/2024 10:00 AM Signed Starr with [facility] HH aware of Provider message. Denies need for patient to be seen sooner for Office visit than 06/22/24. Sylwia Chang LPN Allergies As of Date: 05/06/2024 Noted Allergy Reaction TIZANIDINE 10/07/2023 1 - Mental Status Change 14 - Other: See Comments Comments: Made her feel like in another world. Very dry mouth. Stumbling/falling AMOXICILLIN 07/14/2005 4 - Hives ASPIRIN 01/30/2009 Comments: Hives, shortness of breath SULFA (SULFONAMIDE ANTIBIOTICS) 07/14/2005 4 - Hives Date Reviewed: 03/22/2024 Reviewed by: Whitney Hammond APRN.[employer]ITOR - Fully Assessed Reason for Visit: Orders [681] Prescriptions as of 05/09/2024 - Cholecalciferol, Vitamin D3, 50 mcg (2,000 unit) cap Take 1 capsule by mouth once daily. - Magnesium Oxide 250 mg magnesium tab Take 1 tablet by mouth once daily. - cyanocobalamin (VITAMIN B-12) 1,000 mcg tab Take 1 tablet by mouth once daily. - albuterol HFA (PROAIR HFA) 90 mcg/actuation inhaler Inhale 2 Puffs as instructed every 4 hours as needed for wheezing/shortness of breath. 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 - gabapentin (NEURONTIN) 300 mg capsule Take 2 capsules by mouth daily at bedtime AND 1 capsule every morning. Do all this for 180 days. - glimepiride (AMARYL) 2 mg tablet Take 1 tablet by mouth two times a day with meals. - metFORMIN ER (GLUCOPHAGE XR) 500 mg 24 hr tablet Take 1 tablet by mouth two times a day with meals. - TENS unit and electrodes cmpk 1 Each once daily. - tens unit electrodes (TENS UNITS ELECTRODES) 2X2 pads Change pad every month as indicated - triamcinolone acetonide (KENALOG) 0.1 % cream Apply 1 application to affected area three times daily as needed. For rash on extremities and leg - budesonide-formoterol (SYMBICORT) 160-4.5 mcg/actuation inhaler Inhale 2 Puffs as instructed twice daily. ([facility] pulmonology) - blood sugar diagnostic (BLOOD GLUCOSE TEST) test strip Test blood sugar(s) 1 times daily. Dx: Type 2 DM - Controlled E11.9 Insulin: No - Lancets lancets Test blood sugar(s) 1 times daily. Dx: Type 2 DM - Controlled E11.9 Insulin: No - warfarin (COUMADIN) 5 mg tablet Take 1 tablet by mouth once daily. - diclofenac (VOLTAREN ARTHRITIS PAIN) 1 % topical gel Apply 2 g to affected area four times daily. Meds Comments as of 12/10/2019: Pt stating not taking glimepiride secondary to cost of Rx. 12/10/2019 Keon Herbert Problem List As Of Date 05/06/2024 Noted Resolved Congenital obstructive defects of renal pelvis *09/29/2005 CALCULUS OF KIDNEY [N20.0] 09/29/2005 Contact dermatitis and other eczema [692] 09/29/2005 09/16/2021 PALPITATIONS [R00.2] Obesity, unspecified [E66.9] 09/23/2023 ALLERGIC RHINITIS NOS [J30.9] Essential hypertension [I10] Contact dermatitis and other eczema, due to uns* 09/16/2021 Dizziness and giddiness [R42] 09/23/2023 Mild intermittent asthma without complication [* CALCANEAL SPUR [M77.30] 03/10/2008 Back Strain, recurrent [S39.012A] Hyperlipemia [E78.5] 12/19/2010 Diabetes mellitus type 2, controlled, without c* Rotator cuff tear [M75.100] 05/06/2011 DDD (degenerative disc disease), lumbar [M51.36] Muscle spasm [M62.838] Severe low back pain [M54.50] 12/28/2018 Atrial flutter (HCC) [I48.92] 04/12/2019 Anticoagulated on Coumadin [Z79.01] 04/12/2019 RAMESH (obstructive sleep apnea) [G47.33] 01/21/2021 Pacemaker [Z95.0] 01/21/2021 Bilateral carpal tunnel syndrome [G56.03] 01/21/2021 Pulmonary hypertension (HCC) [I27.20] 05/03/2023 Ulcer of right lower extremity with fat layer e*07/26/2023 Obesity, Class I, BMI 30-34.9 [E66.9] 09/23/2023 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*09/23/2023 Encounter Status:Closed by SYLWIA CHANG on 05/09/24 [facility] 04-06-2024 CNPN Telephone (INTMWS) KEISHA RED ([id number]) 1945 F Date Time Provider Department 04/06/24 WHITNEY HAMMOND INTCORAL During your visit today, we recorded the following information about you: Wihtney Hammond APRN.DOMINGO 04/06/2024 2:37 PM Signed Labs show vitamin b12, magnesium and vitamin d are low. Please let her know I sent in daily supplements for her to start to replace these. Whitney Hammond APRN.Miguelina Silva LPN 04/06/2024 2:39 PM Signed TC to pt. LM to call office, ask for triage nurse to get results. BOONE Sargent Gillian, OCCA 04/07/2024 9:24 AM Signed TC no answer. Left VM to return call. CLAUDIA Rutledge Beth, LPN 04/11/2024 1:11 PM Signed Patient returned call and went over results, notes from Whitney Hammond POLYGRAPH TECHNICIAN with understanding. Aware rx x 3 were sent to pharmacy. Allergies As of Date: 04/06/2024 Noted Allergy Reaction TIZANIDINE 10/07/2023 1 - Mental Status Change 14 - Other: See Comments Comments: Made her feel like in another world. Very dry mouth. Stumbling/falling AMOXICILLIN 07/14/2005 4 - Hives ASPIRIN 01/30/2009 Comments: Hives, shortness of breath SULFA (SULFONAMIDE ANTIBIOTICS) 07/14/2005 4 - Hives Date Reviewed: 03/22/2024 Reviewed by: Whitney Hammond APRN.FRONT DESK MONITOR - Fully Assessed Reason for Visit: Results [95] Primary Visit Diagnosis:B12 deficiency [E53.8] Other Visit Diagnoses:Hypomagnese rory [E83.42] Vitamin D deficiency [E55.9] Order(s):Cholecalcife rol, Vitamin D3, 50 mcg (2,000 unit) capTake 1 capsule by mouth once daily.Disp: 90 capsuleRfl: 2 Magnesium Oxide 250 mg magnesium tabTake 1 tablet by mouth once daily.Disp: 90 tabletRfl: 2 cyanocobalamin (VITAMIN B-12) 1,000 mcg tabTake 1 tablet by mouth once daily.Disp: 90 tabletRfl: 2 Prescriptions as of 04/11/2024 - Cholecalciferol, Vitamin D3, 50 mcg (2,000 unit) cap Take 1 capsule by mouth once daily. - Magnesium Oxide 250 mg magnesium tab Take 1 tablet by mouth once daily. - cyanocobalamin (VITAMIN B-12) 1,000 mcg tab Take 1 tablet by mouth once daily. - albuterol HFA (PROAIR HFA) 90 mcg/actuation inhaler Inhale 2 Puffs as instructed every 4 hours as needed for wheezing/shortness of breath. 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 - gabapentin (NEURONTIN) 300 mg capsule Take 2 capsules by mouth daily at bedtime AND 1 capsule every morning. Do all this for 180 days. - glimepiride (AMARYL) 2 mg tablet Take 1 tablet by mouth two times a day with meals. - metFORMIN ER (GLUCOPHAGE XR) 500 mg 24 hr tablet Take 1 tablet by mouth two times a day with meals. - TENS unit and electrodes cmpk 1 Each once daily. - tens unit electrodes (TENS UNITS ELECTRODES) 2X2 pads Change pad every month as indicated - triamcinolone acetonide (KENALOG) 0.1 % cream Apply 1 application to affected area three times daily as needed. For rash on extremities and leg - budesonide-formoterol (SYMBICORT) 160-4.5 mcg/actuation inhaler Inhale 2 Puffs as instructed twice daily. ([facility] pulmonology) - blood sugar diagnostic (BLOOD GLUCOSE TEST) test strip Test blood sugar(s) 1 times daily. Dx: Type 2 DM - Controlled E11.9 Insulin: No - Lancets lancets Test blood sugar(s) 1 times daily. Dx: Type 2 DM - Controlled E11.9 Insulin: No - warfarin (COUMADIN) 5 mg tablet Take 1 tablet by mouth once daily. - diclofenac (VOLTAREN ARTHRITIS PAIN) 1 % topical gel Apply 2 g to affected area four times daily. Meds Comments as of 12/10/2019: Pt stating not taking glimepiride secondary to cost of Rx. 12/10/2019 Keon Herbert Problem List As Of Date 04/06/2024 Noted Resolved Congenital obstructive defects of renal pelvis *09/29/2005 CALCULUS OF KIDNEY [N20.0] 09/29/2005 Contact dermatitis and other eczema [692] 09/29/2005 09/16/2021 PALPITATIONS [R00.2] Obesity, unspecified [E66.9] 09/23/2023 ALLERGIC RHINITIS NOS [J30.9] Essential hypertension [I10] Contact dermatitis and other eczema, due to uns* 09/16/2021 Dizziness and giddiness [R42] 09/23/2023 Mild intermittent asthma without complication [* CALCANEAL SPUR [M77.30] 03/10/2008 Back Strain, recurrent [S39.012A] Hyperlipemia [E78.5] 12/19/2010 Diabetes mellitus type 2, controlled, without c* Rotator cuff tear [M75.100] 05/06/2011 DDD (degenerative disc disease), lumbar [M51.36] Muscle spasm [M62.838] Severe low back pain [M54.50] 12/28/2018 Atrial flutter (HCC) [I48.92] 04/12/2019 Anticoagulated on Coumadin [Z79.01] 04/12/2019 RAMESH (obstructive sleep apnea) [G47.33] 01/21/2021 Pacemaker [Z95.0] 01/21/2021 Bilateral carpal tunnel syndrome [G56.03] 01/21/2021 Pulmonary hypertension (HCC) [I27.20] 05/03/2023 Ulcer of right lower extremity with fat layer e*07/26/2023 Obesity, Class I, BMI 30-34.9 [E66.9] 09/23/2023 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* (more content not included)... Normal [facility] CNCOon 03-24-2024 CNCO Letter Text Normal [facility] CNPNon 03-24-2024 CNPN Telephone (INTMWS) KEISHA RED ([id number]) 1945 F Date Time Provider Department 03/24/24 JOON LOPEZ INTMWS During your visit today, we recorded the following information about you: Nya De Oliveira, RN 03/24/2024 3:22 PM Signed Pts daughter called in and reports her and her mother were going to go to [employer] on Thursday or Thursday next week. She was asking if Pts provider could write her a letter for her to bring with them. She states her mother has a pacemaker, asthma, COPD, Bronchitis, and dementia. She states she is on a fixed income and they are going to see what programs they can get her enrolled into to help pay for her propane and electric. Dian states she will come in and fern picker the letter. Please call and advise. Joon Lopez MD 03/25/2024 1:13 PM Signed Did letter Sylwia Chang LPN 03/25/2024 1:24 PM Signed Spoke with patient's daughter Dian, she will fern picker letter from Medical records in a few minutes. Nursing to take to MR. Sylwia Chang, BOONE Allergies As of Date: 03/24/2024 Noted Allergy Reaction TIZANIDINE 10/07/2023 1 - Mental Status Change 14 - Other: See Comments Comments: Made her feel like in another world. Very dry mouth. Stumbling/falling AMOXICILLIN 07/14/2005 4 - Hives ASPIRIN 01/30/2009 Comments: Hives, shortness of breath SULFA (SULFONAMIDE ANTIBIOTICS) 07/14/2005 4 - Hives Date Reviewed: 03/22/2024 Reviewed by: Whitney Hammond APRN.FRONT DESK MONITOR - Fully Assessed Reason for Visit: [facility] for [employer] [Other] Prescriptions as of 03/25/2024 - albuterol HFA (PROAIR HFA) 90 mcg/actuation inhaler Inhale 2 Puffs as instructed every 4 hours as needed for wheezing/shortness of breath. 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 - gabapentin (NEURONTIN) 300 mg capsule Take 2 capsules by mouth daily at bedtime AND 1 capsule every morning. Do all this for 180 days. - glimepiride (AMARYL) 2 mg tablet Take 1 tablet by mouth two times a day with meals. - metFORMIN ER (GLUCOPHAGE XR) 500 mg 24 hr tablet Take 1 tablet by mouth two times a day with meals. - TENS unit and electrodes cmpk 1 Each once daily. - tens unit electrodes (TENS UNITS ELECTRODES) 2X2 pads Change pad every month as indicated - triamcinolone acetonide (KENALOG) 0.1 % cream Apply 1 application to affected area three times daily as needed. For rash on extremities and leg - budesonide-formoterol (SYMBICORT) 160-4.5 mcg/actuation inhaler Inhale 2 Puffs as instructed twice daily. ([facility] pulmonology) - blood sugar diagnostic (BLOOD GLUCOSE TEST) test strip Test blood sugar(s) 1 times daily. Dx: Type 2 DM - Controlled E11.9 Insulin: No - Lancets lancets Test blood sugar(s) 1 times daily. Dx: Type 2 DM - Controlled E11.9 Insulin: No - warfarin (COUMADIN) 5 mg tablet Take 1 tablet by mouth once daily. - diclofenac (VOLTAREN ARTHRITIS PAIN) 1 % topical gel Apply 2 g to affected area four times daily. Meds Comments as of 12/10/2019: Pt stating not taking glimepiride secondary to cost of Rx. 12/10/2019 Keon Herbert Problem List As Of Date 03/24/2024 Noted Resolved Congenital obstructive defects of renal pelvis *09/29/2005 CALCULUS OF KIDNEY [N20.0] 09/29/2005 Contact dermatitis and other eczema [692] 09/29/2005 09/16/2021 PALPITATIONS [R00.2] Obesity, unspecified [E66.9] 09/23/2023 ALLERGIC RHINITIS NOS [J30.9] Essential hypertension [I10] Contact dermatitis and other eczema, due to uns* 09/16/2021 Dizziness and giddiness [R42] 09/23/2023 Mild intermittent asthma without complication [* CALCANEAL SPUR [M77.30] 03/10/2008 Back Strain, recurrent [S39.012A] Hyperlipemia [E78.5] 12/19/2010 Diabetes mellitus type 2, controlled, without c* Rotator cuff tear [M75.100] 05/06/2011 DDD (degenerative disc disease), lumbar [M51.36] Muscle spasm [M62.838] Severe low back pain [M54.50] 12/28/2018 Atrial flutter (HCC) [I48.92] 04/12/2019 Anticoagulated on Coumadin [Z79.01] 04/12/2019 RAMESH (obstructive sleep apnea) [G47.33] 01/21/2021 Pacemaker [Z95.0] 01/21/2021 Bilateral carpal tunnel syndrome [G56.03] 01/21/2021 Pulmonary hypertension (HCC) [I27.20] 05/03/2023 Ulcer of right lower extremity with fat layer e*07/26/2023 Obesity, Class I, BMI 30-34.9 [E66.9] 09/23/2023 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*09/23/2023 Letter Text Encounter Status:Closed by SYLWIA CHANG on 03/25/24 Normal [facility] 25(OH)D3 [facility] 25-hydroxyvitamin D3 [Mass/Vol] 10.7 ng/mL Low 31.0-80.0 [facility] Comment on above: Order Comment: Speci men Type: BLOOD SPECIMENOrdering Facility: [facility] Address: [address] [place] [id number] Result Comment: Clas sification of 25 [place] Vitamin D status: Deficiency/Insufficiency: < or = 30 ng/ml. Sufficiency/Optimal Levels: 31-80 ng/mL Toxicity: > 100 ng/mL. Test performed by chemiluminescent immunoassay. Performed By: #### 1 989-3 ####[facility] LABCLIA [id number] [facility] [id number] [place] [address] [place] 25-hydroxyvitamin D3 [Mass/V ol]on 03-22-2024 Interpretation and review of laboratory results Abnormal [facility] The reference range interval was based on an analysis of samples from healthy adults and may not pertain to children from 0-18 years old. [facility] CBC W Auto Differential pane l (Bld)on 03-22-2024 Basophils (Bld) [#/Vol] 0.06 10*3/uL [facility] Basophils/100 WBC (Bld) 1.1 % [facility] Differential cell count method Nom (Bld) Auto [facility] Eosinophils (Bld) [#/Vol] 0.26 10*3/uL [facility] Eosinophils/100 WBC (Bld) 4.7 % [facility] Erythrocyte distribution width (RBC) [Ratio] 12.5 % 11.5 - 15.0 % [facility] Hematocrit (Bld) [Volume fraction] 41.6 % 36.0 - 46.0 % [facility] Hemoglobin (Bld) [Mass/Vol] 13.6 g/dL 11.5 - 15.5 g/dL [facility] Immature granulocytes (Bld) [#/Vol] 0.03 10*3/uL [facility] Immature granulocytes/100 WBC (Bld) 0.5 % [facility] Interpretation and review of laboratory results Abnormal [facility] Lymphocytes (Bld) [#/Vol] 1.35 10*3/uL [facility] Lymphocytes/100 WBC (Bld) 24.6 % [facility] MCH (RBC) [Entitic mass] 32.5 pg 26.0 - 34.0 pg [facility] MCHC (RBC) [Mass/Vol] 32.7 g/dL 30.5 - 36.0 g/dL [facility] MCV (RBC) [Entitic vol] 99.3 fL 80.0 - 100.0 fL [facility] Monocytes (Bld) [#/Vol] 0.40 10*3/uL [facility] Monocytes/100 WBC (Bld) 7.3 % [facility] Neutrophils (Bld) [#/Vol] 3.39 10*3/uL [facility] Neutrophils/100 WBC (Bld) 61.8 % [facility] Nucleated RBC (Bld) [#/Vol] NINF [facility] Nucleated RBC/100 WBC (Bld) [Ratio] 0.0 % /100 WBC [facility] Platelet mean volume (Bld) [Entitic vol] 10.7 fL 9.0 - 12.7 fL [facility] Platelets (Bld) [#/Vol] 125 10*3/uL Low [facility] RBC (Bld) [#/Vol] 4.19 10*6/uL 3.90 - 5.2 0 m/uL [facility] WBC (Bld) [#/Vol] 5.49 10*3/uL [facility] Basophils (Bld) [#/Vol] 0.06 10*3/uL Normal <0.11 [facility] Comment on above: Order Comment: Speci men Type: BLOOD SPECIMENOrdering Facility: [facility] Address: [address] [place] [address] Performed By: #### 5 7021-8 ####[facility] LABCLIA [id number] [place] [address] [place] Basophils/100 WBC (Bld) 1.1 % Normal [facility] Comment on above: Order Comment: Speci men Type: BLOOD SPECIMENOrdering Facility: [facility] Address: [address] [place] [address] Performed By: #### 5 7021-8 ####[facility] LABCLIA [id number] [place] [address] [place] Differential cell count method Nom (Bld) Auto Normal [facility] Comment on above: Order Comment: Speci men Type: BLOOD SPECIMENOrdering Facility: [facility] Address: [address] [place] [address] Performed By: #### 5 7021-8 ####[facility] LABCLIA [id number] [place] [address] [place] Eosinophils (Bld) [#/Vol] 0.26 10*3/uL Normal <0.46 [facility] Comment on above: Order Comment: Speci men Type: BLOOD SPECIMENOrdering Facility: [facility] Address: [address] [place] [address] Performed By: #### 5 7021-8 ####[facility] LABIA [id number] [place] [address] [place] Eosinophils/100 WBC (Bld) 4.7 % Normal [facility] Comment on above: Order Comment: Speci men Type: BLOOD SPECIMENOrdering Facility: [facility] Address: [address] [place] [address] Performed By: #### 5 7021-8 ####[facility] LABCLIA [id number] [place] [address] [place] Erythrocyte distribution width (RBC) [Ratio] 12.5 % Normal 11.5-15.0 [facility] Comment on above: Order Comment: Speci men Type: BLOOD SPECIMENOrdering Facility: [facility] Address: [address] [place] [address] Performed By: #### 5 7021-8 ####[facility] LABCLIA [id number] [place] [address] [place] Hematocrit (Bld) [Volume fraction] 41.6 % Normal 36.0-46.0 [facility] Comment on above: Order Comment: Speci men Type: BLOOD SPECIMENOrdering Facility: [facility] Address: [address] [place] [address] Performed By: #### 5 7021-8 ####[facility] LABCLIA [id number] [place] [address] [place] Hemoglobin (Bld) [Mass/Vol] 13.6 g/dL Normal 11.5-15.5 [facility] Comment on above: Order Comment: Speci men Type: BLOOD SPECIMENOrdering Facility: [facility] Address: [address] [place] [address] Performed By: #### 5 7021-8 ####[facility] LABCLIA [id number] [place] [address] [place] Immature granulocytes (Bld) [#/Vol] 0.03 10*3/uL Normal <0.10 [facility] Comment on above: Order Comment: Speci men Type: BLOOD SPECIMENOrdering Facility: [facility] Address: [address] [place] [address] Performed By: #### 5 7021-8 ####[facility] LABIA [id number] [place] [address] [place] Immature granulocytes/100 WBC (Bld) 0.5 % Normal [facility] Comment on above: Order Comment: Speci men Type: BLOOD SPECIMENOrdering Facility: [facility] Address: [address] [place] [address] Performed By: #### 5 7021-8 ####[facility] LABCLIA [id number] [place] [address] [place] Lymphocytes (Bld) [#/Vol] 1.35 10*3/uL Normal 1.00-4.00 [facility] Comment on above: Order Comment: Speci men Type: BLOOD SPECIMENOrdering Facility: [facility] Address: [address] [place] [address] Performed By: #### 5 7021-8 ####[facility] LABCLIA [id number] [place] [address] [place] Lymphocytes/100 WBC (Bld) 24.6 % Normal [facility] Comment on above: Order Comment: Speci men Type: BLOOD SPECIMENOrdering Facility: [facility] Address: [address] [place] [address] Performed By: #### 5 7021-8 ####[facility] LABCLIA [id number] [place] [address] [place] MCH (RBC) [Entitic mass] 32.5 pg Normal 26.0-34.0 [facility] Comment on above: Order Comment: Speci men Type: BLOOD SPECIMENOrdering Facility: [facility] Address: [address] [place] [address] Performed By: #### 5 7021-8 ####[facility] LABCLIA [id number] [place] [address] [place] MCHC (RBC) [Mass/Vol] 32.7 g/dL Normal 30.5-36.0 [facility] Comment on above: Order Comment: Speci men Type: BLOOD SPECIMENOrdering Facility: [facility] Address: [address] [place] [address] Performed By: #### 5 7021-8 ####[facility] LABIA [id number] [place] [address] [place] MCV (RBC) [Entitic vol] 99.3 fL Normal 80.0-100.0 [facility] Comment on above: Order Comment: Speci men Type: BLOOD SPECIMENOrdering Facility: [facility] Address: [address] [place] [address] Performed By: #### 5 7021-8 ####[facility] LABCLIA [id number] [place] [address] [place] Monocytes (Bld) [#/Vol] 0.40 10*3/uL Normal <0.87 [facility] Comment on above: Order Comment: Speci men Type: BLOOD SPECIMENOrdering Facility: [facility] Address: [address] [place] [address] Performed By: #### 5 7021-8 ####[facility] LABCLIA [id number] [place] [address] [place] Monocytes/100 WBC (Bld) 7.3 % Normal [facility] Comment on above: Order Comment: Speci men Type: BLOOD SPECIMENOrdering Facility: [facility] Address: [address] [place] [address] Performed By: #### 5 7021-8 ####[facility] LABCLIA [id number] [place] [address] [place] Neutrophils (Bld) [#/Vol] 3.39 10*3/uL Normal 1.45-7.50 [facility] Comment on above: Order Comment: Speci men Type: BLOOD SPECIMENOrdering Facility: [facility] Address: [address] [place] [address] Performed By: #### 5 7021-8 ####[facility] LABCLIA [id number] [place] [address] [place] Neutrophils/100 WBC (Bld) 61.8 % Normal [facility] Comment on above: Order Comment: Speci men Type: BLOOD SPECIMENOrdering Facility: [facility] Address: [address] [place] [address] Performed By: #### 5 7021-8 ####[facility] LABCLIA [id number] [place] [address] [place] Nucleated RBC (Bld) [#/Vol] 10*3/uL Normal <0.01 [facility] Comment on above: Order Comment: Speci men Type: BLOOD SPECIMENOrdering Facility: [facility] Address: [address] [place] [address] Performed By: #### 5 7021-8 ####[facility] LABCLIA [id number] [place] [address] [place] Nucleated RBC/100 WBC (Bld) [Ratio] 0.0 /100 WBC Normal [facility] Comment on above: Order Comment: Speci men Type: BLOOD SPECIMENOrdering Facility: [facility] Address: [address] [place] [address] Performed By: #### 5 7021-8 ####[facility] LABCLIA [id number] [place] [address] [place] Platelet mean volume (Bld) [Entitic vol] 10.7 fL Normal 9.0-12.7 [facility] Comment on above: Order Comment: Speci men Type: BLOOD SPECIMENOrdering Facility: [facility] Address: [address] [place] [address] Performed By: #### 5 7021-8 ####[facility] LABCLIA [id number] [place] [address] [place] Platelets (Bld) [#/Vol] 125 10*3/uL Low 150-400 [facility] Comment on above: Order Comment: Speci men Type: BLOOD SPECIMENOrdering Facility: [facility] Address: [address] [place] [address] Performed By: #### 5 7021-8 ####[facility] LABCLIA [id number] [place] [address] [place] RBC (Bld) [#/Vol] 4.19 10*6/uL Normal 3.90-5.20 [facility] Comment on above: Order Comment: Speci men Type: BLOOD SPECIMENOrdering Facility: [facility] Address: [address] [place] [address] Performed By: #### 5 7021-8 ####[facility] LABCLIA [id number] [place] [address] [place] WBC (Bld) [#/Vol] 5.49 10*3/uL Normal 3.70-11.00 [facility] Comment on above: Order Comment: Speci men Type: BLOOD SPECIMENOrdering Facility: [facility] Address: [address] [place] [address] Performed By: #### 5 7021-8 ####[facility] LABMARIAM [id number] [place] [id number] [facility] CNOVon 03-22-2024 CNOV Office Visit (INTMWS ) KEISHA RED ([id number]) 1945 F Date Time Provider Department 03/22/24 9:00 AM WHITNEY HAMMOND INTHilariaWS During your visit today, we recorded the following information about you: Pulse Blood pressure Weight 90/minute 138/72 88 kg Whitney Hammond APRN.FRONT DESK MONITOR 03/22/2024 12:51 PM Signed SUBJECTIVE Keisha Red is a 79 year old female here today for a check up on her medical problems. Chief Complaint Patient presents with: F/U 3 Month Musculoskeletal Problem: right knee asuncion at times but is able to catch herself from falling HPI Keisha Red is a 79 year old female. She is an established patient of Joon Lopez MD. She is here today for a 3 month follow up. Accompanied by a family member. Has been drinking more water, no more episodes of near passing out. She notes that she is often tired, wants to sleep a lot. Hard time falling asleep at night. Her dog snores and this keeps her up. She does not snore. Some concerns about looser stools lately. Some incontinence but aware this is occurring. Blood sugars are doing really good. Family has noticed some memory changes. More forgetful. Not sure when she was supposed to follow up on her INR, [facility] manages INR for a fib. Her medications were reviewed today and her list is now up to date. Medications Current Outpatient Medications Medication Sig triamcinolone acetonide (KENALOG) 0.1 % cream Apply 1 application to affected area three times daily as needed. For rash on extremities and leg budesonide-formoterol (SYMBICORT) 160-4.5 mcg/actuation inhaler Inhale 2 Puffs as instructed twice daily. ([facility] pulmonology) warfarin (COUMADIN) 5 mg tablet Take 1 tablet by mouth once daily. diclofenac (VOLTAREN ARTHRITIS PAIN) 1 % topical gel Apply 2 g to affected area four times daily. (Patient taking differently: Apply 2 g to affected area four times daily. Takes as needed) albuterol HFA (PROAIR HFA) 90 mcg/actuation inhaler Inhale 2 Puffs as instructed every 4 hours as needed for wheezing/shortness of breath. 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 gabapentin (NEURONTIN) 300 mg capsule Take 2 capsules by mouth daily at bedtime AND 1 capsule every morning. Do all this for 180 days. glimepiride (AMARYL) 2 mg tablet Take 1 tablet by mouth two times a day with meals. metFORMIN ER (GLUCOPHAGE XR) 500 mg 24 hr tablet Take 1 tablet by mouth two times a day with meals. TENS unit and electrodes cmpk 1 Each [...] medications for this visit. ALLERGIES Allergen Reactions Tizanidine Mental Status Change, Other: See Comments Made her feel like in another world. Very dry mouth. 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 Agudelo Muscle Spasm Rotator Cuff Tear - 05/06/2011 Diabetes Mellitus Type 2, Controlled, Without Complications ([facility]) Hyperlipemia - 12/19/2010 Back Strain, recurrent [...] No Drug use: Never Review of Systems Respiratory: Negative. Cardiovascular: Negative. Gastrointestinal: Positive for diarrhea. Negative for abdominal distention, abdominal pain, anal bleeding, blood in stool, constipation, nausea, rectal pain and vomiting. OBJECTIVE BP 138/72 Pulse 90 Wt 194 lb (88.0kg) SpO2 96% Physical Exam Vitals and nursing note reviewed. Constitutional: General: She is awake. She is not in acute distress. (more content not included)... Normal [facility] KEISHA RED ([id number]) 1945 F Date Time Provider Department 03/22/24 WHITNEY HAMMOND INTHilariaWS During your visit today, we recorded the following information about you: Whitney Hammond APRN.[facility] 03/22/2024 3:02 PM Signed Can we please forward today's INR result to [facility]. Per patient they manage her INR/coumadin. Carolina Rojo LPN 03/22/2024 3:11 PM Signed Results faxed to [facility]. Allergies As of Date: 03/22/2024 Noted Allergy Reaction TIZANIDINE 10/07/2023 1 - Mental Status Change 14 - Other: See Comments Comments: Made her feel like in another world. Very dry mouth. 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 - gabapentin (NEURONTIN) 300 mg capsule Take 2 capsules by mouth daily at bedtime AND 1 capsule every morning. Do all this for 180 days. - glimepiride (AMARYL) 2 mg tablet Take 1 tablet by mouth two times a day with meals. - metFORMIN ER (GLUCOPHAGE XR) 500 mg 24 hr tablet Take 1 tablet by mouth two times a day with meals. - TENS unit and electrodes cmpk 1 Each once daily. - tens unit electrodes (TENS UNITS ELECTRODES) 2X2 pads Change pad every month as indicated - triamcinolone acetonide (KENALOG) 0.1 % cream Apply 1 application to affected area three times daily as needed. For rash on extremities and leg - budesonide-formoterol (SYMBICORT) 160-4.5 mcg/actuation inhaler Inhale 2 Puffs as instructed twice daily. ([facility] pulmonology) - blood sugar diagnostic (BLOOD GLUCOSE TEST) test strip Test blood sugar(s) 1 times daily. Dx: Type 2 DM - Controlled E11.9 Insulin: No - Lancets lancets Test blood sugar(s) 1 times daily. Dx: Type 2 DM - Controlled E11.9 Insulin: No - warfarin (COUMADIN) 5 mg tablet Take 1 tablet by mouth once daily. - diclofenac (VOLTAREN ARTHRITIS PAIN) 1 % topical gel Apply 2 g to affected area four times daily. Meds Comments as of 12/10/2019: Pt stating not taking glimepiride secondary to cost of Rx. 12/10/2019 Keon Herbert Problem List As Of Date 03/22/2024 Noted Resolved Congenital obstructive defects of renal pelvis *09/29/2005 CALCULUS OF KIDNEY [N20.0] 09/29/2005 Contact dermatitis and other eczema [692] 09/29/2005 09/16/2021 PALPITATIONS [R00.2] Obesity, unspecified [E66.9] 09/23/2023 ALLERGIC RHINITIS NOS [J30.9] Essential hypertension [I10] Contact dermatitis and other eczema, due to uns* 09/16/2021 Dizziness and giddiness [R42] 09/23/2023 Mild intermittent asthma without complication [* CALCANEAL SPUR [M77.30] 03/10/2008 Back Strain, recurrent [S39.012A] Hyperlipemia [E78.5] 12/19/2010 Diabetes mellitus type 2, controlled, without c* Rotator cuff tear [M75.100] 05/06/2011 DDD (degenerative disc disease), lumbar [M51.36] Muscle spasm [M62.838] Severe low back pain [M54.50] 12/28/2018 Atrial flutter (HCC) [I48.92] 04/12/2019 Anticoagulated on Coumadin [Z79.01] 04/12/2019 RAMESH (obstructive sleep apnea) [G47.33] 01/21/2021 Pacemaker [Z95.0] 01/21/2021 Bilateral carpal tunnel syndrome [G56.03] 01/21/2021 Pulmonary hypertension (HCC) [I27.20] 05/03/2023 Ulcer of right lower extremity with fat layer e*07/26/2023 Obesity, Class I, BMI 30-34.9 [E66.9] 09/23/2023 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*09/23/2023 Encounter Status:Closed by CAROLINA ROJO on 03/22/24 Normal [facility] Cobalamin (Vitamin B12) [Mas s/Vol]on 03-22-2024 Interpretation and review of laboratory results Abnormal [facility] Comprehensive metabolic 2000 panelon 03-22-2024 Albumin [Mass/Vol] 4.2 g/dL 3.9 - 4.9 g/dL [facility] ALP [Catalytic activity/Vol] 89 U/L 34 - 123 U/L [facility] ALT [Catalytic activity/Vol] 13 U/L 7 - 38 U/L [facility] Anion gap [Moles/Vol] 12 mmol/L 9 - 18 mmol/L [facility] AST [Catalytic activity/Vol] 20 U/L 13 - 35 U/L [facility] Bilirubin [Mass/Vol] 0.5 mg/dL 0.2 - 1 .3 mg/dL [facility] Calcium [Mass/Vol] 9.7 mg/dL 8.5 - 10. 2 mg/dL [facility] Chloride [Moles/Vol] 103 mmol/L 97 - 10 5 mmol/L [facility] CO2 [Moles/Vol] 25 mmol/L 22 - 30 mmol/L [facility] Creatinine [Mass/Vol] 0.84 mg/dL 0.58 - 0.96 mg/dL [facility] GFR/1.73 sq M.predicted among non-blacks MDRD (S/P/Bld) [Vol rate/Area] 72 mL/min/{1.73_m2} - PINF [facility] Comment on above: Estimated Glomerular Filtration Rate (eGFR) is calculated using the 2020 CKD-EPI creatinine equation. This equation utilizes serum creatinine, sex, and age as parameters. The creatinine assay has traceable calibration to isotope dilution-mass spectrometry. Refer to KDIGO guidelines for clinical interpretation. In patients with unstable renal function, e.g. those with acute kidney injury, the eGFR may not accurately reflect actual GFR. Glucose [Mass/Vol] 163 mg/dL High 74 - 99 mg/dL [facility] Comment on above: The [place] Diabete s Association (ADA) provides guidance for cutoff values for fasting glucose and random glucose. The ADA defines fasting as no caloric intake for at least 8 hours. Fasting plasma glucose results between 100 to 125 [...] Standards of Medical Care in Diabetes 2016, [place] Diabetes Association. Diabetes Care. 2016.39(Suppl 1). Potassium [Moles/Vol] 4.0 mmol/L 3.7 - 5.1 mmol/L [facility] Protein [Mass/Vol] 7.0 g/dL 6.3 - 8.0 g/dL [facility] Sodium [Moles/Vol] 140 mmol/L 136 - 144 mmol/L [facility] Urea nitrogen [Mass/Vol] 10 mg/dL 7 - 21 mg/dL [facility] Albumin [Mass/Vol] 4.2 g/dL Normal 3.9-4.9 [facility] Comment on above: Order Comment: Josette faust Type: BLOOD SPECIMENOrdering Facility: [facility] Address: [address] [place] [address] Performed By: #### 2 4323-8, , 2132-06, 6-3 ####[facility] LABIA [id number] [place] [address] [place] ALP [Catalytic activity/Vol] 89 U/L Normal 34-123 [facility] Comment on above: Order Comment: Josette faust Type: BLOOD SPECIMENOrdering Facility: [facility] Address: [address] [place] [address] Performed By: #### 2 4323-8, , 2132-06, 6-3 ####[facility] LABCLIA [id number] [place] [address] [place] ALT [Catalytic activity/Vol] 13 U/L Normal 7-38 [facility] Comment on above: Order Comment: Jaydai christianne Type: BLOOD SPECIMENOrdering Facility: [facility] Address: [address] [place] [address] Performed By: #### 2 4323-8, 27001-4, 2132-06, 6-3 ####[facility] LABCLIA [id number] [place] [id number] [place] Anion gap [Moles/Vol] 12 mmol/L Normal 9-18 [facility] Comment on above: Order Comment: Speci men Type: BLOOD SPECIMENOrdering Facility: [facility] Address: [address] [place] [address] Performed By: #### 2 4323-8, 92076-0, 9, 6-3 ####[facility] LABCLIA [id number] [place] [address] [place] AST [Catalytic activity/Vol] 20 U/L Normal 13-35 [facility] Comment on above: Order Comment: Speci men Type: BLOOD SPECIMENOrdering Facility: [facility] Address: [address] [place] [address] Performed By: #### 2 4323-8, 19708-4, 2132-06, 6-3 ####[facility] LABCLIA [id number] [place] [address] [place] Bilirubin [Mass/Vol] 0.5 mg/dL Normal 0.2-1.3 [facility] Comment on above: Order Comment: Speci men Type: BLOOD SPECIMENOrdering Facility: [facility] Address: [address] [place] [address] Performed By: #### 2 4323-8, 24586-4, 9, 6-3 ####[facility] LABCLIA [id number] [place] [id number] [place] Calcium [Mass/Vol] 9.7 mg/dL Normal 8.5-10.2 [facility] Comment on above: Order Comment: Speci men Type: BLOOD SPECIMENOrdering Facility: [facility] Address: [address] [place] [address] Performed By: #### 2 4323-8, 86989-3, 9, 6-3 ####[facility] LABCLIA [id number] [address] [address] [place] Chloride [Moles/Vol] 103 mmol/L Normal 97-105 [facility] Comment on above: Order Comment: Speci men Type: BLOOD SPECIMENOrdering Facility: [facility] Address: [address] [place] [address] Performed By: #### 2 4323-8, 91004-7, 9, 6-3 ####[facility] LABCLIA [id number] [place] [id number] [place] CO2 [Moles/Vol] 25 mmol/L Normal 22-30 [facility] Comment on above: Order Comment: Speci men Type: BLOOD SPECIMENOrdering Facility: [facility] Address: [address] [place] [address] Performed By: #### 2 4323-8, 55842-9, 9, 6-3 ####[facility] LABCLIA [id number] [place] [address] [place] Creatinine [Mass/Vol] 0.84 mg/dL Normal 0.58-0.96 [facility] Comment on above: Order Comment: Speci men Type: BLOOD SPECIMENOrdering Facility: [facility] Address: [address] [place] [address] Performed By: #### 2 4323-8, 29903-2, 9, 6-3 ####[facility] LABCLIA [id number] [place] [id number] [place] Creatinine and Glomerular filtration rate.predicted panel (S/P/Bld) 72 mL/min/1.73m??? Normal >=60 [facility] Comment on above: Order Comment: Speci men Type: BLOOD SPECIMENOrdering Facility: [facility] Address: [address] [place] [address] Result Comment: Monique mated Glomerular Filtration Rate (eGFR) is calculated using the 2020 CKD-EPI creatinine equation. This equation utilizes serum creatinine, sex, and age as parameters. The creatinine assay has traceable calibration to isotope dilution-mass spectrometry. Refer to KDIGO guidelines for clinical interpretation. In patients with unstable renal function, e.g. those with acute kidney injury, the eGFR may not accurately reflect actual GFR. Performed By: #### 2 4323-8, , 2132-06, 3015-3 ####[facility] LABCLIA [id number] [address] [address] [place] Glucose [Mass/Vol] 163 mg/dL High 74-99 [facility] Comment on above: Order Comment: Josette faust Type: BLOOD SPECIMENOrdering Facility: [facility] Address: [address] [place] [address] Result Comment: The [place] Diabetes Association (ADA) provides guidance for cutoff values for fasting glucose and random glucose. The ADA defines fasting as no caloric intake for at least 8 hours. Fasting plasma glucose results between 100 to 125 [...] Standards of Medical Care in Diabetes 2016, [place] Diabetes Association. Diabetes Care. 2016.39(Suppl 1). Performed By: #### 2 432-8, , 2132-06, 3 ####[facility] LABCLIA [id number] [address] [address] [place] Potassium [Moles/Vol] 4.0 mmol/L Normal 3.7-5.1 [facility] Comment on above: Order Comment: Josette faust Type: BLOOD SPECIMENOrdering Facility: [facility] Address: [address] [place] [address] Performed By: #### 2 4323-8, , 2132-06, 3015-3 ####[facility] LABCLIA [id number] [address] [address] [place] Protein [Mass/Vol] 7.0 g/dL Normal 6.3-8.0 [facility] Comment on above: Order Comment: Speci men Type: BLOOD SPECIMENOrdering Facility: [facility] Address: [address] [place] [address] Performed By: #### 2 4323-8, 67660-1, 2132-06, 6-3 ####[facility] LABCLIA [id number] [place] [id number] [place] Sodium [Moles/Vol] 140 mmol/L Normal 136-144 [facility] Comment on above: Order Comment: Speci men Type: BLOOD SPECIMENOrdering Facility: [facility] Address: [address] [place] [address] Performed By: #### 2 4323-8, 60949-5, 2132-06, 6-3 ####[facility] LABIA [id number] [place] [id number] [place] Urea nitrogen [Mass/Vol] 10 mg/dL Normal 7-21 [facility] Comment on above: Order Comment: Speci men Type: BLOOD SPECIMENOrdering Facility: [facility] Address: [address] [place] [address] Performed By: #### 2 4323-8, 40015-4, 2132-06, 3015-3 ####[facility] LABIA [id number] [place] [id number] [place] HbA1c (Bld)on 03-22-2024 Average glucose Estimated from glycated hemoglobin (Bld) [Mass/Vol] 148 mg/dL [facility] Comment on above: eAG: (Estimated aver age glucose) is a calculated value from HgbA1c and is software sales representative of the average blood glucose level in the last 2-3 month period. HbA1c (Bld) [Mass fraction] 6.8 % High 4.3 - 5.6 % [facility] Comment on above: [place] Diabetes As sociation guidelines indicate that patients with HgbA1c in the range 5.7-6.4% are at increased risk for development of diabetes, and intervention by lifestyle modification may be beneficial. HgbA1c greater or equal to 6.5% is considered diagnostic of diabetes. Interpretation and review of laboratory results Abnormal [facility] Average glucose Estimated from glycated hemoglobin (Bld) [Mass/Vol] 148 mg/dL Normal [facility] Comment on above: Order Comment: Josette faust Type: BLOOD SPECIMENOrdering Facility: [facility] Address: [address] [place] [address] Result Comment: eAG: (Estimated average glucose) is a calculated value from HgbA1c and is software sales representative of the average blood glucose level in the last 2-3 month period. Performed By: #### 5 5454-3 ####[facility] LABCLIA [id number] [place] [address] [place] HbA1c (Bld) [Mass fraction] 6.8 % High 4.3-5.6 [facility] Comment on above: Order Comment: Josette faust Type: BLOOD SPECIMENOrdering Facility: [facility] Address: [address] [place] [address] Result Comment: [place] Diabetes Association guidelines indicate that patients with HgbA1c in the range 5.7-6.4% are at increased risk for development of diabetes, and intervention by lifestyle modification may be beneficial. HgbA1c greater or equal to 6.5% is considered diagnostic of diabetes. Performed By: #### 5 5454-3 ####[facility] LABCLIA [id number] [place] [address] [place] MAGNESIUMon 03-22-2024 Magnesium [Mass/Vol] 1.4 mg/dL Low 1.7 - 2 .3 mg/dL [facility] Magnesium SerPl-mCncon 03-22 Magnesium [Mass/Vol] 1.4 mg/dL Low 1.7-2.3 [facility] Comment on above: Order Comment: Josette faust Type: BLOOD SPECIMENOrdering Facility: [facility] Address: [address] [place] [address] Performed By: #### 2 4323-8, 08488-7, 2132-9, 3016-3 ####[facility] LABCLIA [id number] [place] [id number] [place] No Panel Informationon 03-22 [facility] Interpretation and review of laboratory results Abnormal [facility] PT panel Coag (PPP)on 2023 INR Coag (PPP) [Relative time] 3.3 {INR} High 0.9 - 1.3 [facility] Comment on above: Vitamin K Antagonist (VKA) Therapeutic Range: INR 2 to 3 (Target INR of 2.5) Note: For patients treated with VKA drugs, such as warfarin, the [place] [employer] 2012 Guideline recommends a therapeutic INR range of 2 to 3 (target INR of 2.5). This recommendation includes high-risk patients with antiphospholipid syndrome with previous arterial or venous thromboembolism, current-generation mechanical or bioprosthetic aortic heart valve replacement. Note: Patients with mechanical aortic valve replacement and additional risk factors for thromboembolic events (atrial fibrillation, previous thromboembolism, LV dysfunction, hypercoagulable conditions) or an older generation mechanical AVR (i.e., ball in-Cage) or any mechanical MVR should have a INR therapeutic range of 2.5 to 3.5 (target INR of 3). Teddy GAUTHIER, et al. Chest 2012, 141:7S-47S Chidi RA, et al. [facility] 2017, 70: 252-289 Interpretation and review of laboratory results Abnormal [facility] PT Coag (PPP) [Time] 31.2 s High [facility] INR Coag (PPP) [Relative time] 3.3 {INR} High 0.9-1.3 [facility] Comment on above: Order Comment: Speci men Type: BLOOD SPECIMENOrdering Facility: [facility] Address: [address] [place] [id number] Result Comment: Karen min K Antagonist (VKA) Therapeutic Range: INR 2 to 3 (Target INR of 2.5) Note: For patients treated with VKA drugs, such as warfarin, the [place] [employer] 2012 Guideline recommends a therapeutic INR range of 2 to 3 (target INR of 2.5). This recommendation includes high-risk patients with antiphospholipid syndrome with previous arterial or venous thromboembolism, current-generation mechanical or bioprosthetic aortic heart valve replacement. Note: Patients with mechanical aortic valve replacement and additional risk factors for thromboembolic events (atrial fibrillation, previous thromboembolism, LV dysfunction, hypercoagulable conditions) or an older generation mechanical AVR (i.e., ball in-Cage) or any mechanical MVR should have a INR therapeutic range of 2.5 to 3.5 (target INR of 3). Teddy GH, et al. Chest 2012, 141:7S-47S Chidi RA, et al. [facility] 2017, 70: 252-289 Performed By: #### 3 4528-0 ####[facility] LABIA [id number] [place] [address] [place] PT Coag (PPP) [Time] 31.2 s High 9.7-13.0 [facility] Comment on above: Order Comment: Josette faust Type: BLOOD SPECIMENOrdering Facility: [facility] Address: [address] [place] [address] Performed By: #### 3 4528-0 ####[facility] [id number] [place] [address] [place] THYROID STIMULATING HORMONEo n 03-22-2024 TSH Qn 1.240 m[IU]/L [facility] TSH Qnon 03-22-2024 Interpretation and review of laboratory results Normal [facility] TSH SerPl-aCncon 03-22-2024 TSH Qn 1.240 m[IU]/L Normal 0.270-4.200 [facility] Comment on above: Order Comment: Josette faust Type: BLOOD SPECIMENOrdering Facility: [facility] Address: [facility] [place] [address] Performed By: #### 2 4323-8, 05131-6, 2132-9, 3016-3 ####[facility] LABCLIA [id number] [place] [address] [place] VITAMIN B12on 03-22-2024 Cobalamin (Vitamin B12) [Mass/Vol] 219 pg/mL Low 232 - 1245 pg/mL [facility] VITAMIN D 25 HYDROXYon 03-22 25-hydroxyvitamin D3 [Mass/Vol] 10.7 ng/mL Low 31.0 - 80.0 ng/mL [facility] Comment on above: Classification of 25 [place] Vitamin D status: Deficiency/Insufficiency: < or = 30 ng/ml. Sufficiency/Optimal Levels: 31-80 ng/mL Toxicity: > 100 ng/mL. Test performed by chemiluminescent immunoassay. Vit B12 SerPl-mCncon 024 Cobalamin (Vitamin B12) [Mass/Vol] 219 pg/mL Low 232-1245 [facility] Comment on above: Order Comment: Josette faust Type: BLOOD SPECIMENOrdering Facility: [facility] Address: [address] [place] [address] Performed By: #### 2 4323-8, 29182-5, 8242-9, 3016-3 ####[facility] LABCLIA [id number] [place] [address] [place] CNPCassy 03-17-2024 CNPN Telephone (INTMWS) KEISHA RED ([id number]) 1945 F Date Time Provider Department 03/17/24 JOON LOPEZ INTMWS During your visit today, we recorded the following information about you: Starr Lopez 03/17/2024 11:57 AM Signed Patient's insurance, [employer], called to report that the patient recently experienced a fracture on her left elbow. She is eligible to have a bone density scan 05/07/24. Order pended, please contact patient when order is signed and available for scheduling. Trini Tang, JOSE DANIEL.REDEYE GUNNER 03/18/2024 3:26 PM Signed OK order is in, check with patient to see if wanting to schedule Enrique SandyBOONE chappell 03/18/2024 3:53 PM Signed My chart message to pt. Clarisse Lora 03/19/2024 10:27 AM Signed Left message for patient to schedule Bone Density. First attempt. Clarisse Lora, Trini Aparicio, JOSE DANIEL.REDEYE GUNNER 03/24/2024 12:49 PM Signed Can send letter or [employer] message if no response. Guerline Davila LPN 03/24/2024 1:37 PM Signed Letter has been mailed. Allergies As of Date: 03/17/2024 Noted Allergy Reaction TIZANIDINE 10/07/2023 1 - Mental Status Change 14 - Other: See Comments Comments: Made her feel like in another world. Very dry mouth. Stumbling/falling AMOXICILLIN 07/14/2005 4 - Hives ASPIRIN 01/30/2009 Comments: Hives, shortness of breath SULFA (SULFONAMIDE ANTIBIOTICS) 07/14/2005 4 - Hives Date Reviewed: 02/03/2024 Reviewed by: Rahel Akers LPN - Fully Assessed Reason for Visit: Orders [681] Cmt: Bone Density Primary Visit Diagnosis:Asymptomati c postmenopausal state [Z78.0] Other Visit Diagnoses:Screening for osteoporosis [Z13.820] Closed fracture of elbow, unspecified laterality, sequela [S42.409S] Order(s):DXA-AXIAL SKELETON [[id number]] Order #: [id number] FUTURE BD DXA TRABECULAR BONE SCORE (TBS) [[id number]] Order #: [id number] FUTURE Prescriptions as of 03/24/2024 - albuterol HFA (PROAIR HFA) 90 mcg/actuation inhaler Inhale 2 Puffs as instructed every 4 hours as needed for wheezing/shortness of breath. 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 - gabapentin (NEURONTIN) 300 mg capsule Take 2 capsules by mouth daily at bedtime AND 1 capsule every morning. Do all this for 180 days. - glimepiride (AMARYL) 2 mg tablet Take 1 tablet by mouth two times a day with meals. - metFORMIN ER (GLUCOPHAGE XR) 500 mg 24 hr tablet Take 1 tablet by mouth two times a day with meals. - TENS unit and electrodes cmpk 1 Each once daily. - tens unit electrodes (TENS UNITS ELECTRODES) 2X2 pads Change pad every month as indicated - triamcinolone acetonide (KENALOG) 0.1 % cream Apply 1 application to affected area three times daily as needed. For rash on extremities and leg - budesonide-formoterol (SYMBICORT) 160-4.5 mcg/actuation inhaler Inhale 2 Puffs as instructed twice daily. ([facility] pulmonology) - blood sugar diagnostic (BLOOD GLUCOSE TEST) test strip Test blood sugar(s) 1 times daily. Dx: Type 2 DM - Controlled E11.9 Insulin: No - Lancets lancets Test blood sugar(s) 1 times daily. Dx: Type 2 DM - Controlled E11.9 Insulin: No - warfarin (COUMADIN) 5 mg tablet Take 1 tablet by mouth once daily. - diclofenac (VOLTAREN ARTHRITIS PAIN) 1 % topical gel Apply 2 g to affected area four times daily. Meds Comments as of 12/10/2019: Pt stating not taking glimepiride secondary to cost of Rx. 12/10/2019 Keon Herbert Problem List As Of Date 03/17/2024 Noted Resolved Congenital obstructive defects of renal pelvis *09/29/2005 CALCULUS OF KIDNEY [N20.0] 09/29/2005 Contact dermatitis and other eczema [692] 09/29/2005 09/16/2021 PALPITATIONS [R00.2] Obesity, unspecified [E66.9] 09/23/2023 ALLERGIC RHINITIS NOS [J30.9] Essential hypertension [I10] Contact dermatitis and other eczema, due to uns* 09/16/2021 Dizziness and giddiness [R42] 09/23/2023 Mild intermittent asthma without complication [* CALCANEAL SPUR [M77.30] 03/10/2008 Back Strain, recurrent [S39.012A] Hyperlipemia [E78.5] 12/19/2010 Diabetes mellitus type 2, controlled, without c* Rotator cuff tear [M75.100] 05/06/2011 DDD (degenerative disc disease), lumbar [M51.36] Muscle spasm [M62.838] Severe low back pain [M54.50] 12/28/2018 Atrial flutter (HCC) [I48.92] 04/12/2019 Anticoagulated on Coumadin [Z79.01] 04/12/2019 RAMESH (obstructive sleep apnea) [G47.33] 01/21/2021 Pacemaker [Z95.0] 01/21/2021 Bilateral carpal tunnel syndrome [G56.03] 01/21/2021 Pulmonary hypertension (HCC) [I27.20] 05/03/2023 Ulcer of right lower extremity with fat layer e*07/26/2023 Obesity, Class I, BMI 30-34.9 [E66.9] 09/23/2023 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*09/23/2023 Encounter Status:Closed by TRINI TANG on 03/18/24 [facility] CNOVon 02-03-2024 CNOV Office Visit (INTMWS ) NEDAKEISHA SANTOYO ([id number]) 1945 F Date Time Provider Department 02/03/24 10:00 AM JOON LOPEZ INTMWS During your visit today, we recorded the following information about you: Pulse Respiration Blood pressure Weight 84/minute 16/minute 124/72 86.2 kg Joon Lopez MD 03/14/2024 12:48 AM Signed This note was created using NoteWriter. Subjective Keisha Red is a 78 year old female. Patient presents with: Hospital F/U SUBJECTIVE: Keisha Red is a 78 year old year old lady here today for hospital follow up appointment for review of medical conditions. Admitted overnight. Reviewed records. Discussed with patient and daughter. Noted that has renal stent--pain was bad first couple days; better now. Dehydration from poor oral intake noted. Making sure drinking enough water--5 bottles (about ounces) of water yesterday. Adding flavored electrolyte packet to put in her water. No nausea. Eats toast. [employer] PB on bread (not toast). Likes veggies only if roasted. See assessment and plan for other issues addressed. 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 Agudleo Dizziness and giddiness Muscle spasm Obesity, unspecified Palpitations Pulmonary hypertension (HCC) 05/03/2023 Shoulder dislocation 12/06/11 Right shoulder s/p fall with reduction at [facility] Type II or unspecified type diabetes mellitus without mention of complication, not stated as uncontrolled Unspecified asthma(493.90) Unspecified essential hypertension Current Outpatient Medications Medication Sig albuterol HFA (PROAIR HFA) 90 mcg/actuation inhaler Inhale 2 Puffs as instructed every 4 hours as needed for wheezing/shortness of breath. 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 ([facility] pulmonology) blood sugar diagnostic (BLOOD GLUCOSE [...] this visit. Review of Systems Objective BP 124/72 (BP Site: Left Arm, BP Position: Sitting, BP Cuff Size: Large Adult) Pulse 84 Resp 16 Wt 86.2 kg (190 lb) BMI 30.67 kg/m? Last 5 Encounter Wt Readings: Date: Wt: 02/03/2024 86.2 kg (190 lb) 01/05/2024 88 kg (194 lb) 10/07/2023 88.5 kg (195 lb 1.6 oz) 09/23/2023 89.8 kg (198 lb) 06/22/2023 89.8 kg (198 lb) No waist measurement recorded Estimated body mass index is 30.67 kg/m? as calculated from the following: Height as of 01/07/22: 167.6 cm (5' 6 ). Weight as of this encounter: 86.2 kg (190 lb). Last 5 Encounter BP Readings: Date: BP: 02/03/2024 124/72 01/05/2024 120/68 10/07/2023 140/80 09/23/2023 128/70 06/22/2023 122/66 Physical Exam Constitutional: Appearance: Normal appearance. HENT: [...] Mood and Affect: Mood normal. Behavior: Behavior (more content not included)... Normal [facility] .GFRon 01-29-2024 GFR 59 ml/min/1.73sqm Normal [facility] ([place]) Comment on above: Result Comment: GFR Population mean for , Non- Americans Ages 20-29 = 116 mL/min/1.73 sq.m. Ages 30-39 = 107 mL/min/1.73 sq.m. Ages 40-49 = 99 mL/min/1.73 sq.m. Ages 50-59 = 93 mL/min/1.73 sq.m. Ages 60-69 = 85 mL/min/1.73 sq.m. Ages 70+ = 75 mL/min/1.73 sq.m. Chronic Kidney Disease: Less than 60 mL/min/1.73 square meters End Stage Renal Disease: Less than 15 mL/min/1.73 square meters Performed By: #### L ROBIBN MCKEON, AURORAS, PRO, CMP, GFR, ANEU, ADIFF, CBC ####[address] [place], [place] [address] GFR Non- 49 ml/min/1.73sqm Normal [facility] ([place]) Comment on above: Result Comment: GFR Population mean for , Non- Americans Ages 20-29 = 116 mL/min/1.73 sq.m. Ages 30-39 = 107 mL/min/1.73 sq.m. Ages 40-49 = 99 mL/min/1.73 sq.m. Ages 50-59 = 93 mL/min/1.73 sq.m. Ages 60-69 = 85 mL/min/1.73 sq.m. Ages 70+ = 75 mL/min/1.73 sq.m. Chronic Kidney Disease: Less than 60 mL/min/1.73 square meters End Stage Renal Disease: Less than 15 mL/min/1.73 square meters Performed By: #### L ROBBIN MCKEON, AURORAS, PRO, CMP, GFR, ANEU, ADIFF, CBC ####[address] [place], [place] [address] .Urinalysis Microscopic (AO) on 01-29-2024 UA RBC 0-5 Abnormal None Seen [facility] ([place]) Comment on above: Performed By: #### U A, UAMICAO #### [id number] [place], [place] [address] UA Squam Epithelial 0-5 Abnormal None Seen [facility] ([place]) Comment on above: Performed By: #### Maverick Bardales UAMICAO #### [address] [place], [place] [address] UA WBC 5-10 Abnormal None Seen [facility] ([place]) Comment on above: Performed By: #### Maverick Bardales UAMICAO #### [address] [place], [place] [address] CMPon 01-29-2024 Albumin Level 3.5 G/dL Normal 3.4-4.8 [facility] ([place]) Comment on above: Performed By: #### L ROBBIN MCKEON, TROPHS, PRO, CMP, GFR, ANEU, ADIFF, CBC ####[address] [place], [place] [address] Albumin/Globulin [Mass ratio] 1.0 {ratio} Low 1.1-2.5 [facility] ([place]) Comment on above: Performed By: #### L ROBBIN MCKEON, TROPHS, PRO, CMP, GFR, ANEU, ADIFF, CBC ####[address] [place], [place] [address] ALP [Catalytic activity/Vol] 137 U/L High 40-135 [facility] ([place]) Comment on above: Performed By: #### L ROBBIN MCKEON, TROPHS, PRO, CMP, GFR, ANEU, ADIFF, CBC ####[address] [place], [place] [address] ALT [Catalytic activity/Vol] 17 U/L Normal 14-59 [facility] ([place]) Comment on above: Performed By: #### L ROBBIN MCKEON, TROPHS, PRO, CMP, GFR, ANEU, ADIFF, CBC ####[address] [place], [place] [address] AST [Catalytic activity/Vol] 18 U/L Normal 10-40 [facility] ([place]) Comment on above: Performed By: #### L ROBBIN MCKEON, TROPHS, PRO, CMP, GFR, ANEU, ADIFF, CBC ####[address] [place], [place] [address] Bili Total 0.4 mg/dL Normal 0.2-1.0 [facility] ([place]) Comment on above: Result Comment: Use of this assay is not recommended for patients undergoing treatment with eltrombopag due to the potential for falsely elevated results. Performed By: #### L ROBBIN MCKEON, TROPHS, PRO, CMP, GFR, ANEU, ADIFF, CBC ####[address] [place], [place] [address] BUN/Creatinine Ratio 10 ratio Normal 7-27 [facility] Comment on above: Performed By: #### L ROBBIN MCKEON, TROPHS, PRO, CMP, GFR, ANEU, ADIFF, CBC ####[address] [place], [place] [address] Calcium [Mass/Vol] 8.7 mg/dL Normal 8.4-10.2 Pending sale to [facility] ([place]) Comment on above: Performed By: #### L ROBBIN MCKEON, TROPHS, PRO, CMP, GFR, ANEU, ADIFF, CBC ####[address] [place], [place] [address] Chloride [Moles/Vol] 102 mmol/L Normal 98-107 [facility] [place] Comment on above: Performed By: #### L ROBBIN MCKEON, TROPHS, PRO, CMP, GFR, ANEU, ADIFF, CBC ####[address] [place], [place] [address] CO2 [Moles/Vol] 26 mmol/L Normal 23-31 [facility] ([place] Comment on above: Performed By: #### L ROBBIN MCKEON, TROPHS, PRO, CMP, GFR, ANEU, ADIFF, CBC ####[address] [place], [place] [address] Creatinine [Mass/Vol] 1.09 mg/dL High 0.55-1.02 [facility] ([place]) Comment on above: Performed By: #### L ROBBIN MCKEON, TROPHS, PRO, CMP, GFR, ANEU, ADIFF, CBC ####[address] [place], [place] [address] Electrolyte Balance 10.0 mEq/L Normal 4.0-15.0 [facility] ([place]) Comment on above: Performed By: #### L ROBBIN MCKEON, TROPHS, PRO, CMP, GFR, ANEU, ADIFF, CBC ####[address] [place], [place] [address] Globulin 3.5 G/dL Normal [facility] ([place]) Comment on above: Performed By: #### L ROBBIN MCKEON, TROPHS, PRO, CMP, GFR, ANEU, ADIFF, CBC ####[address] [place], [place] [address] Glucose [Mass/Vol] 256 mg/dL High 83-110 Pending sale to [facility] ([place]) Comment on above: Performed By: #### L ROBBIN MCKEON, TROPHS, PRO, CMP, GFR, ANEU, ADIFF, CBC ####[address] [place], [place] [address] Potassium [Moles/Vol] 3.8 mmol/L Normal 3.5-5.1 [facility] ([place]) Comment on above: Performed By: #### L ROBBIN MCKEON, TROPHS, PRO, CMP, GFR, ANEU, ADIFF, CBC ####[address] [place], [place] [address] Sodium [Moles/Vol] 138 mmol/L Normal 136-145 Pending sale to [facility] ([place]) Comment on above: Performed By: #### L ROBBIN MCKEON, TROPHS, PRO, CMP, GFR, ANEU, ADIFF, CBC ####[address] [place], [place] [address] Total Protein 7.0 G/dL Normal 6.4-8.2 [facility] ([place] Comment on above: Performed By: #### L ROBBIN MCKEON, TROPHS, PRO, CMP, GFR, ANEU, ADIFF, CBC ####[address] [place], [place] [address] Urea nitrogen [Mass/Vol] 11 mg/dL Normal 7-18 [facility] ([place]) Comment on above: Performed By: #### L ROBBIN MCKEON, TROPHS, PRO, CMP, GFR, ANEU, ADIFF, CBC ####[address] [place], [place] [address] LIPon 01-29-2024 Lipase Level 12 U/L Low 16-77 [facility] ([place]) Comment on above: Performed By: #### L ROBIBN MCKEON, BONI, PRO, CMP, GFR, ANEU, ADIFF, CBC #### Adri[address] [address] TROPHSon 01-29-2024 High Sensitivity Troponin I 11 ng/L Normal 0-51 [facility] ([place]) Comment on above: Result Comment: High Sensitive Troponin I Reference Ranges: Female: 0-51 ng/L Male: 0-76 ng/L Testing performed on Dimension GenPrime using a homogeneous sandwich chemiluminescent immunoassay based on Tripnary technology. Performed By: #### T LLOYD #### [address] [address] High Sensitivity Troponin I 13 ng/L Normal 0-51 [facility] ([place]) Comment on above: Result Comment: High Sensitive Troponin I Reference Ranges: Female: 0-51 ng/L Male: 0-76 ng/L Testing performed on Dimension EXSyrmo using a homogeneous sandwich chemiluminescent immunoassay based on Tripnary technology. Performed By: #### L ROBBIN MCKEON, BONI, PRO, CMP, GFR, ANEU, ADIFF, CBC ####[address] [place], [place] [address] UAon 01-29-2024 Color (U) Yellow Normal [facility] ([place] Comment on above: Performed By: #### U A, UAMICAO #### [address] [address] Glucose (U) [Mass/Vol] 100 mg/dL Abnormal Negative [facility] ([place] Comment on above: Performed By: #### U A, UAMICAO #### [address] [address] Ketones Ql (U) Negative Normal Negative [facility] ([place] Comment on above: Performed By: #### U A, UAMICAO #### [address] [place] [id number] UA Appear Slightly Cloudy Abnormal Clear [facility] ([place] Comment on above: Performed By: #### U A, UAMICAO #### [place] [address] UA Blood Small Abnormal Negative [facility] ([place] Comment on above: Performed By: #### U A, UAMICAO #### [place] [address] UA Leuk Est Trace Abnormal Negative [facility] ([place] Comment on above: Performed By: #### U A, UAMICAO #### [place] [address] UA Nitrite Negative Normal Negative [facility] ([place] Comment on above: Performed By: #### U A, UAMICAO #### [place] [address] UA pH 6.0 Normal 5.0 - 8.0 [facility] ([place] Comment on above: Performed By: #### U A, UAMICAO #### [place] [address] UA Protein 100 mg/dL Abnormal Negative [facility] ([place] Comment on above: Performed By: #### U A, UAMICAO #### [place] [address] UA Spec Grav >=1.030 Abnormal 1.015-1.025 [facility] ([place] Comment on above: Performed By: #### U A, UAMICAO #### [place] [address] UA Specimen Type Clean Catch Normal [facility] ([place] Comment on above: Performed By: #### U A, UAMICAO #### [place] [address] UA Urobilinogen 0.2 E.U./dL Normal 0.2-1.0 [facility] ([place] Comment on above: Performed By: #### U A, UAMICAO #### [place] [address] Urobilinogen (U) [Mass/Vol] Negative Normal Negative [facility] ([place] Comment on above: Performed By: #### U GREG Bardales #### [address] [address] XR CHEST 1 VIEWon 01-29-2024 XR CHEST 1 VIEW ORIGINAL EXAMINATION: ONE XRAY VIEW OF THE CHEST 01/28/2024 10:11 pm COMPARISON: None. HISTORY: ORDERING SYSTEM PROVIDED HISTORY: Reason for Exam: syncopal episode FINDINGS: There is left thoracic transvenous pacemaker. There is hypoinflation with accentuation of the cardiomediastinal silhouette and increased bronchovascular markings. There is no consolidation or pleural effusion. There is no pulmonary vascular congestion. There is no pneumothorax. Osseous structures demonstrate degenerative changes. There are small calcifications projected inferior to the right humeral head. IMPRESSION: 1. There is no consolidation or effusion. Interpreted by: Jl Canada Preliminary Report By: Jl Canada Electronically signed By Jl Canada Dictated Date: 01/28/2024 10:15:55 PM Prelim Date: 01/28/2024 10:18:43 PM Sign Date: 01/28/2024 10:18:43 PM Ordering Provider: RUBIO Hood [facility] ([place]) .Auto Diffon 01-28-2024 Basophil, Absolute 0.1 10 3/mcL Normal 0[facility]0-0.2 [facility] [place] Comment on above: Performed By: #### L ROBBIN MCKEON, TROPHS, PRO, CMP, GFR, ANEU, ADIFF, CBC #### [address] [address] Basophils/100 WBC (Bld) 1.0 % Normal 0.0-2.5 [facility] ([place] Comment on above: Performed By: #### L ROBBIN MCKEON, TROPHS, PRO, CMP, GFR, ANEU, ADIFF, CBC #### [address] [address] Eosinophil, Absolute 0.3 10 3/mcL Normal 0.0-0.4 [facility] ([place]) Comment on above: Performed By: #### L IP, MDW, TROPHS, PRO, CMP, GFR, ANEU, ADIFF, CBC #### [address] [address] Eosinophils/100 WBC (Bld) 4.8 % Normal 0.0-7.0 [facility] ([place] Comment on above: Performed By: #### L IP, W, TROPHS, PRO, CMP, GFR, ANEU, ADIFF, CBC #### [address] [address] Lymphocyte, Absolute 1.2 10 3/mcL Normal 0.8-3.9 [facility] ([place]) Comment on above: Performed By: #### L IP, MDW, TROPHS, PRO, CMP, GFR, ANEU, ADIFF, CBC #### [address] [address] Lymphocytes/100 WBC (Bld) 21.6 % Normal 10.0-50.0 [facility] ([place] Comment on above: Performed By: #### L IP, W, TROPHS, PRO, CMP, GFR, ANEU, ADIFF, CBC #### [address] [address] Monocyte, Absolute 0.5 10 3/mcL Normal 0.2-1.0 [facility] [place] Comment on above: Performed By: #### L MD LINDAW, TROPHS, PRO, CMP, GFR, ANEU, ADIFF, CBC #### [address] [address] Monocytes/100 WBC (Bld) 9.9 % Normal 1.7-13.0 [facility] ([place] Comment on above: Performed By: #### L IP, MDW, TROPHS, PRO, CMP, GFR, ANEU, ADIFF, CBC #### [address] [address] Neutrophils/100 WBC (Bld) 62.7 % Normal 37.0-80.0 [facility] ([place] Comment on above: Performed By: #### L LINDA, W, TROPHS, PRO, CMP, GFR, ANEU, ADIFF, CBC #### [address] [address] .MDWon 01-28-2024 Monocyte Distribution Width Not performed Normal 0.00-20.00 [facility] ([place]) Comment on above: Result Comment: ROBBIN testing performed only on adult ER patients between the ages of 18-89 years. Performed By: #### L ROBBIN MCKEON, TROPHS, PRO, CMP, GFR, ANEU, ADIFF, CBC #### [place] [address] .NEUABSon 01-28-2024 Neutrophil, Absolute 3.3 10 3/mcL Normal 2.9-6.2 [facility] ([place]) Comment on above: Performed By: #### L ROBBIN MCKEON, TROPHS, PRO, CMP, GFR, ANEU, ADIFF, CBC #### [place] [address] CBCon 01-28-2024 Erythrocyte distribution width (RBC) [Ratio] 13.9 % Normal 11.5-14.5 [facility] ([place] Comment on above: Performed By: #### L ROBBIN MCKEON, TROPHS, PRO, CMP, GFR, ANEU, ADIFF, CBC #### [place] [address] Hematocrit (Bld) [Volume fraction] 38.8 % Normal 37.0-47.0 [facility] ([place] Comment on above: Performed By: #### L ROBBIN MCKEON, TROPHS, PRO, CMP, GFR, ANEU, ADIFF, CBC #### [place] [address] Hgb 13.2 G/dL Normal 12.0-16.0 [facility] ([place] Comment on above: Performed By: #### L ROBBIN MCKEON, TROPHS, PRO, CMP, GFR, ANEU, ADIFF, CBC #### [place] [address] MCH (RBC) [Entitic mass] 33.8 pg High 27.0-31.2 [facility] ([place] Comment on above: Performed By: #### L ROBBIN MCKEON, TROPHS, PRO, CMP, GFR, ANEU, ADIFF, CBC #### [address] [address] MCHC 34.1 G/dL Normal 33.0-37.0 [facility] ([place] Comment on above: Performed By: #### L LINDA, W, TROPHS, PRO, CMP, GFR, ANEU, ADIFF, CBC #### [place] [id number] MCV (RBC) [Entitic vol] 98.9 fL High 80.0-94.0 [facility] ([place] Comment on above: Performed By: #### L ROBBIN MCKEON, TROPHS, PRO, CMP, GFR, ANEU, ADIFF, CBC #### [place] [address] Platelet 127 10 3/mcL Low 130-400 [facility] ([place] Comment on above: Performed By: #### L ROBBIN MCKEON, TROPHS, PRO, CMP, GFR, ANEU, ADIFF, CBC #### [address] [address] Platelet mean volume (Bld) [Entitic vol] 7.6 fL Normal 7.4-10.4 [facility] ([place] Comment on above: Performed By: #### L ROBBIN MCKEON, TROPHS, PRO, CMP, GFR, ANEU, ADIFF, CBC #### [place] [id number] RBC 3.92 10 6/mcL Low 4.20-5.40 [facility] ([place] Comment on above: Performed By: #### L ROBBIN MCKEON, TROPHS, PRO, CMP, GFR, ANEU, ADIFF, CBC #### [place] [id number] WBC 5.3 10 3/mcL Normal 4.6-10.8 [facility] ([place] Comment on above: Performed By: #### L MD LINDAW, TROPHS, PRO, CMP, GFR, ANEU, ADIFF, CBC #### [address] [place] [address] Laxmi 01-28-2024 [facility] Nurse Triage (INTMWS ) KEISHA RED ([id number]) 1945 F Date Time Provider Department 01/28/24 JOON LOPEZ INTMWS During your visit today, we recorded the following information about you: Taylor Ruffin RN 01/28/2024 7:30 PM Signed DaughterBrooke calling to report mother has new symptoms of severe weakness in legs, unable to walk, stumbling and falling into things when she tries to walk. Patient has nausea/vomiting and is a little confused per daughter. This nurse spoke briefly with patient who states I can't walk and I blacked out for a few seconds Her daughter was not with her at the time patient says she blacked out. Advised ER evaluation. Daughter says she will call [phone]. Taylor Ruffin RN Reason for Disposition [1] SEVERE weakness (i.e., unable to walk or barely able to walk, requires support) AND [2] new-onset or worsening Answer Assessment - Initial Assessment Questions 1. SYMPTOM: Per daughter, patient complains of weakness, difficulty walking, stumbling, falling into things 2. ONSET: 30 minutes ago 3. LAST NORMAL: Daughter is not sure 4. PATTERN : Symptoms are present now 5. CARDIAC SYMPTOMS: Denies chest pain, SOB 6. NEUROLOGIC SYMPTOMS:Patient says I can't walk and I blacked out For a few minutes 7. OTHER SYMPTOMS: Nausea/vomiting Daughter says patient seems confused -no slurred speech -no weakness on one side of body -no weakness in face/no mouth droop Protocols used: Neurologic Sarazjn-CAINS-MP Allergies As of Date: 01/28/2024 Noted Allergy Reaction TIZANIDINE 10/07/2023 1 - Mental Status Change 14 - Other: See Comments Comments: Made her feel like in another world. Very dry mouth. Stumbling/falling AMOXICILLIN 07/14/2005 4 - Hives ASPIRIN 01/30/2009 Comments: Hives, shortness of breath SULFA (SULFONAMIDE ANTIBIOTICS) 07/14/2005 4 - Hives Date Reviewed: 01/20/2024 Reviewed by: Rahel Akers LPN - Fully Assessed Reason for Visit: Neurologic Problem [71] Prescriptions as of 01/28/2024 - albuterol HFA (PROAIR HFA) 90 mcg/actuation inhaler Inhale 2 Puffs as instructed every 4 hours as needed for wheezing/shortness of breath. 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 - tens unit electrodes (TENS UNITS ELECTRODES) 2X2 pads Change pad every month as indicated - gabapentin (NEURONTIN) 300 mg capsule Take 2 capsules by mouth daily at bedtime AND 1 capsule every morning. Do all this for 180 days. - triamcinolone acetonide (KENALOG) 0.1 % cream Apply 1 application to affected area three times daily as needed. For rash on extremities and leg - budesonide-formoterol (SYMBICORT) 160-4.5 mcg/actuation inhaler Inhale 2 Puffs as instructed twice daily. ([facility] pulmonology) - blood sugar diagnostic (BLOOD GLUCOSE TEST) test strip Test blood sugar(s) 1 times daily. Dx: Type 2 DM - Controlled E11.9 Insulin: No - Lancets lancets Test blood sugar(s) 1 times daily. Dx: Type 2 DM - Controlled E11.9 Insulin: No - metFORMIN ER (GLUCOPHAGE XR) 500 mg 24 hr tablet Take 2 tablets by mouth twice daily with meals. - glimepiride (AMARYL) 2 mg tablet Take 1 tablet by mouth once daily as needed. for blood sugar over 200. (Has pills left from 2017) - atorvastatin (LIPITOR) 10 mg tablet Take 1 tablet by mouth once daily. - warfarin (COUMADIN) 5 mg tablet Take 1 tablet by mouth once daily. - diclofenac (VOLTAREN ARTHRITIS PAIN) 1 % topical gel Apply 2 g to affected area four times daily. - magnesium oxide 400 mg magnesium cap Take 400 mg by mouth once daily. Meds Comments as of 12/10/2019: Pt stating not taking glimepiride secondary to cost of Rx. 12/10/2019 Keon Herbert Problem List As Of Date 01/28/2024 Noted Resolved Congenital obstructive defects of renal pelvis *09/29/2005 CALCULUS OF KIDNEY [N20.0] 09/29/2005 Contact dermatitis and other eczema [692] 09/29/2005 09/16/2021 PALPITATIONS [R00.2] Obesity, unspecified [E66.9] 09/23/2023 ALLERGIC RHINITIS NOS [J30.9] Essential hypertension [I10] Contact dermatitis and other eczema, due to uns* 09/16/2021 Dizziness and giddiness [R42] 09/23/2023 Mild intermittent asthma without complication [* CALCANEAL SPUR [M77.30] 03/10/2008 Back Strain, recurrent [S39.012A] Hyperlipemia [E78.5] 12/19/2010 Diabetes mellitus type 2, controlled, without c* Rotator cuff tear [M75.100] 05/06/2011 DDD (degenerative disc disease), lumbar [M51.36] Muscle spasm [M62.838] Severe low back pain [M54.50] 12/28/2018 Atrial flutter (HCC) [I48.92] 04/12/2019 Anticoagulated on Coumadin [Z79.01] 04/12/2019 RAMESH (obstructive sleep apnea) [G47.33] 01/21/2021 Pacemaker [Z95.0] 01/21/2021 Bilateral carpal tunnel syndrome [G56.03] 01/21/2021 Pulmonary hypertension (HCC) [I27.20] 05/03/2023 Ulcer of right lower extremity with fat layer e*07/26/2023 Obesity, Class I, BMI (more content not included)... Normal [facility] LABORATORYOrdered By: SYSTEM SYSTEM on 01-28-2024 Troponin I.cardiac DL <= 0.01 ng/mL [Mass/Vol] 11 ng/L Normal 0 - 51 ng/L AO ADM SS Comment on above: Interpretive Data: H igh Sensitive Troponin I Reference Ranges: Female: 0-51 ng/L Male: 0-76 ng/L Testing performed on Comviva using a homogeneous sandwich chemiluminescent immunoassay based on Tripnary technology. Albumin BCP dye [Mass/Vol] 3.5 G/dL Normal 3.4 - 4.8 G/dL AO ADM SS Albumin/Globulin [Mass ratio] 1.0 {ratio} Low 1.1 - 2.5 ratio AO ADM SS ALP [Catalytic activity/Vol] 137 U/L High 40 - 135 U/L AO ADM SS ALT With P-5'-P [Catalytic activity/Vol] 17 U/L Normal 14 - 59 U/L AO ADM SS AST With P-5'-P [Catalytic activity/Vol] 18 U/L Normal 10 - 40 U/L AO ADM SS Basophil, Absolute 0.1 103/mcL Normal 0.0 - 0.2 10^3/mcL AO Workflow SS Basophils/100 WBC (Bld) 1.0 % Normal 0.0 - 2.5 % AO Workflow SS Bilirubin [Mass/Vol] 0.4 mg/dL Normal 0.2 - 1 .0 mg/dL AO ADM SS Comment on above: Interpretive Data: U se of this assay is not recommended for patients undergoing treatment with eltrombopag due to the potential for falsely elevated results. Calcium [Mass/Vol] 8.7 mg/dL Normal 8.4 - 10. 2 mg/dL AO ADM SS Chloride [Moles/Vol] 102 mmol/L Normal 98 - 10 7 mmol/L AO ADM SS CO2 [Moles/Vol] 26 mmol/L Normal 23 - 31 mmol/L AO ADM SS Creatinine [Mass/Vol] 1.09 mg/dL High 0.55 - 1.02 mg/dL AO ADM SS Electrolyte Balance 10.0 mEq/L Normal 4.0 - 15 .0 mEq/L AO ADM SS Eosinophil, Absolute 0.3 103/mcL Normal 0.0 - 0 .4 10^3/mcL AO Workflow SS Eosinophils/100 WBC (Bld) 4.8 % Normal 0.0 - 7.0 % AO Workflow SS Erythrocyte distribution width (RBC) [Ratio] 13.9 % Normal 11.5 - 14.5 % AO Workflow SS GFR/1.73 sq M.predicted among blacks MDRD (S/P/Bld) [Vol rate/Area] 59 ml/min/1.73sqm Invalid Interpretation Code AO Chemistry S Comment on above: Interpretive Data: GFR Population mean for , Non- Americans Ages 20-29 = 116 mL/min/1.73 sq.m. Ages 30-39 = 107 mL/min/1.73 sq.m. Ages 40-49 = 99 mL/min/1.73 sq.m. Ages 50-59 = 93 mL/min/1.73 sq.m. Ages 60-69 = 85 mL/min/1.73 sq.m. Ages 70+ = 75 mL/min/1.73 sq.m. Chronic Kidney Disease: Less than 60 mL/min/1.73 square meters End Stage Renal Disease: Less than 15 mL/min/1.73 square meters GFR/1.73 sq M.predicted among non-blacks MDRD (S/P/Bld) [Vol rate/Area] 49 ml/min/1.73sqm Invalid Interpretation Code AO Chemistry S Comment on above: Interpretive Data: GFR Population mean for , Non- Americans Ages 20-29 = 116 mL/min/1.73 sq.m. Ages 30-39 = 107 mL/min/1.73 sq.m. Ages 40-49 = 99 mL/min/1.73 sq.m. Ages 50-59 = 93 mL/min/1.73 sq.m. Ages 60-69 = 85 mL/min/1.73 sq.m. Ages 70+ = 75 mL/min/1.73 sq.m. Chronic Kidney Disease: Less than 60 mL/min/1.73 square meters End Stage Renal Disease: Less than 15 mL/min/1.73 square meters Globulin 3.5 G/dL Invalid Interpretation Code AO ADM SS Glucose [Mass/Vol] 256 mg/dL High 83 - 110 mg/dL AO ADM SS Hematocrit (Bld) [Volume fraction] 38.8 % Normal 37.0 - 47.0 % AO Workflow SS Hemoglobin (Bld) [Mass/Vol] 13.2 G/dL Normal 12.0 - 16.0 G/dL AO Workflow SS Lipase [Catalytic activity/Vol] 12 U/L Low 16 - 77 U/L AO ADM SS Lymphocyte, Absolute 1.2 103/mcL Normal 0.8 - 3 .9 10^3/mcL AO Workflow SS Lymphocytes/100 WBC (Bld) 21.6 % Normal 10.0 - 50.0 % AO Workflow SS MCH (RBC) [Entitic mass] 33.8 pg High 27.0 - 31.2 pg AO Workflow SS MCHC 34.1 G/dL Normal 33.0 - 37.0 G/dL AO Workflow SS MCV (RBC) [Entitic vol] 98.9 fL High 80.0 - 94.0 fL AO Workflow SS Monocyte distribution width Auto (Bld) [Entitic vol] Not Performed 1 *NA* (01/28/24 9:25 PM) Invalid Interpretation Code 0.00 - 20.00 AO Hematology S Comment on above: Result Comment: MDW testing performed only on adult ER patients between the ages of 18-89 years. Monocyte, Absolute 0.5 103/mcL Normal 0.2 - 1.0 10^3/mcL AO Workflow SS Monocytes/100 WBC (Bld) 9.9 % Normal 1.7 - 13.0 % AO Workflow SS Neutrophil, Absolute 3.3 103/mcL Normal 2.9 - 6 .2 10^3/mcL AO Workflow SS Neutrophils/100 WBC (Bld) 62.7 % Normal 37.0 - 80.0 % AO Workflow SS Platelet mean volume (Bld) [Entitic vol] 7.6 fL Normal 7.4 - 10.4 fL AO Workflow SS Platelets (Bld) [#/Vol] 127 103/mcL Low 130 - 400 10^3/mcL AO Workflow SS Potassium [Moles/Vol] 3.8 mmol/L Normal 3.5 - 5.1 mmol/L AO ADM SS Protein [Mass/Vol] 7.0 G/dL Normal 6.4 - 8.2 G/dL AO ADM SS RBC (Bld) [#/Vol] 3.92 106/mcL Low 4.20 - 5.4 0 10^6/mcL AO Workflow SS Sodium [Moles/Vol] 138 mmol/L Normal 136 - 145 mmol/L AO ADM SS Troponin I.cardiac DL <= 0.01 ng/mL [Mass/Vol] 13 ng/L Normal 0 - 51 ng/L AO ADM SS Comment on above: Interpretive Data: H igh Sensitive Troponin I Reference Ranges: Female: 0-51 ng/L Male: 0-76 ng/L Testing performed on Com[employer]iva using a homogeneous sandwich chemiluminescent immunoassay based on Tripnary technology. Urea nitrogen [Mass/Vol] 11 mg/dL Normal 7 - 18 mg/dL AO ADM SS Urea nitrogen/Creatinine [Mass ratio] 10 ratio Normal 7 - 27 ratio AO ADM SS WBC (Bld) [#/Vol] 5.3 103/mcL Normal 4.6 - 10.8 10^3/mcL AO Workflow SS LABORATORYOrdered By: Brittnyserge samantha Dawson on 01-28-2024 Appearance (U) Slightly Cloudy *ABN* (01/28/24 9:56 PM) Invalid Interpretation Code Clear AO Auto Urine SS Bilirubin Ql (U) Negative (01/28/24 9:56 PM) Normal Negative AO Auto Urine SS Color (U) Yellow (01/28/24 9:56 PM) Normal AO Auto Urine SS Glucose Test strip (U) [Mass/Vol] 100 mg/dL Invalid Interpretation Code Negative AO Auto Urine SS Hemoglobin Auto test strip (U) [Mass/Vol] Small *ABN* (01/28/24 9:56 PM) Invalid Interpretation Code Negative AO Auto Urine SS Ketones Ql (U) Negative Normal Negative AO Auto Ur ine SS UA Leuk Est Trace *ABN* (01/28/24 9:56 PM) Invalid Interpretation Code Negative AO Auto Urine SS UA Nitrite Negative (01/28/24 9:56 PM) Normal Negative AO Auto Urine SS UA pH 6.0 (01/28/24 9:56 PM) Normal 5.0 - 8.0 AO Auto Urine SS UA Protein 100 mg/dL Invalid Interpretation Code Negative AO Auto Urine SS UA RBC 0-5 /HPF Invalid Interpretation Code None Seen AO Auto Urine SS UA Spec Grav >=1.030 *ABN* (01/28/24 9:56 PM) Invalid Interpretation Code 1.015-1.025 AO Auto Urine SS UA Specimen Type Clean Catch (01/28/24 9:56 PM) Normal AO Auto Urine SS UA Squam Epithelial 0-5 /HPF Invalid Interpretation Code None Seen AO Auto Urine SS UA Urobilinogen 0.2 E.U./dL Normal 0.2-1.0 AO Auto Urine SS WBC LM.HPF (Urine sed) [#/Area] 5-10 /HPF Invalid Interpretation Code None Seen AO Auto Urine SS LABORATORYOrdered By: Merari Lainez on 01-28-2024 INR Coag (PPP) [Relative time] 1.2 {INR} Invalid Interpretation Code AO HemoHub SS Comment on above: Interpretive Data: Liz chi [employer] (CHEST, 1992, 102:312S-25S) recommended therapeutic range for oral anticoagulant therapy is: LOW RISK: Prophylaxis of venous thrombosis INR: 2.0-3.0 Treatment of pulmonary embolism 2.0-3.0 Prevention of systemic embolism 2.0-3.0 HIGH RISK: Mechanical prosthetic valves 2.5-3.5 PT Coag (PPP) [Time] 13.8 s Normal 9.0 - 1 4.2 seconds AO HemoHub SS PROon 01-28-2024 PT Coag (PPP) [Time] 13.8 s Normal [facility]0-14.2 [facility] Comment on above: Performed By: #### L ROBBIN MCKEON, TROPHS, PRO, CMP, GFR, ANEU, ADIFF, CBC #### [address] [address] PT International Ratio 1.2 Normal [facility] ([place]) Comment on above: Result Comment: [employer] [place] (CHEST, 1992, 102:312S-25S) recommended therapeutic range for oral anticoagulant therapy is: LOW RISK: Prophylaxis of venous thrombosis INR: 2.0-3.0 Treatment of pulmonary embolism 2.0-3.0 Prevention of systemic embolism 2.0-3.0 HIGH RISK: Mechanical prosthetic valves 2.5-3.5 Performed By: #### L ROBBIN MCKEON, TROPHS, PRO, CMP, GFR, ANEU, ADIFF, CBC #### [address] [address] CNOVon 01-20-2024 CNOV Office Visit (INTMWS ) NEDAKEISHA Tracie ([id number]) 1945 F Date Time Provider Department 01/20/24 9:20 AM JOON LOPEZ INTMWS During your visit today, we recorded the following information about you: Joon Lopez MD 01/20/2024 12:12 PM Signed This note was created using NoteWriter. Subjective Keisha Tracie Neda is a 78 year old female. Patient presents with: Follow Up: 3 month follow up SUBJECTIVE: Keisha Red is a 78 year old year old lady here today for 3 month follow up appointment for review of medical conditions. Chief complaint - Regular three-month check-up - Upcoming biopsy due to cancer - Difficulty sleeping History of present illness - Patient has been seeing the doctor for regular three-month check-ups - Upcoming biopsy to investigate cancer - Reports difficulty sleeping, often stays up late watching TV - Reports frequent urination at night - Reports itching on the legs - Sugar control if good. - Blood pressure controlled without adverse effects from medications. Past medical history - History of cancer - History of diabetes, controlled with Metformin - History of respiratory issues, controlled with Albuterol and Symbicort Social history - Patient watches TV late into the night - Patient enjoys snacks like popcorn and DOTS chips PAST MEDICAL HISTORY Diagnosis Date Allergic rhinitis, [...] Right shoulder s/p fall with reduction at [facility] Type II or unspecified type diabetes mellitus without mention of complication, not stated as uncontrolled Unspecified asthma(493.90) Unspecified essential hypertension Current Outpatient Medications Medication Sig albuterol HFA (PROAIR HFA) 90 mcg/actuation inhaler Inhale 2 Puffs as instructed every 4 hours as needed for wheezing/shortness of breath. 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 ([facility] pulmonology) blood sugar diagnostic (BLOOD GLUCOSE [...] visit. Review of Systems Objective BP (P) 124/76 (BP Site: Left Arm, BP Position: Sitting, BP Cuff Size: Large Adult) Pulse (P) 84 Wt (P) 87.1 kg (192 lb) BMI (P) 30.99 kg/m? Physical Exam Constitutional: Appearance: Normal appearance. HENT: Head: Normocephalic. Eyes: Conjunctiva/sclera: Conjunctivae normal. Cardiovascular: Rate and Rhythm: Normal rate and regular rhythm. Heart sounds: Normal heart sounds. Pulmonary: Effort: Pulmonary effort is normal. Breath sounds: Normal breath sounds. Musculoskeletal: Right lower leg: No edema. Left lower leg: No edema. Skin: General: Skin is warm and dry. Comments: ~1cm ulcer, right pretibial--- Leg ulcer on right villagomez is healing, no signs of infection. [place] [employer]. Not wearing nonstick dressing that had given to her at last appointment Neurological: General: No focal deficit present. Mental Status: She is alert and oriented to person, place, and time. Psychiatric: Attention and Perception: Attention and perception normal. Mood and Affect: Mood is anxious (Expressed anxiety about biopsy and cancer diagnosis). Speech: Speech normal. Be (more content not included)... Normal [facility] CNOVon 01-05-2024 CNOV Office Visit (INTMWS ) KEISHA RED ([id number]) 1945 F Date Time Provider Department 01/05/24 2:20 PM JOON LOPEZ INTMWS During your visit today, we recorded the following information about you: Temperature Pulse Blood pressure Weight 98.5 degrees 60/minute 120/68 88 kg Joon Lopez MD 02/18/2024 9:31 AM Signed This note was created using HealthCentralriter. Subjective Keisha Red is a 78 year old female. Patient presents with: Hospital F/U SUBJECTIVE: Keisha Red is a 78 year old year old lady here today for hospital follow up appointment for review of medical conditions. Noted some UTI symptoms. Noted was admitted 12/28 and discharged 12/28 Fell due to dog. Landed on back. Hurting in front under breasts. Noted kidney with blockage on right. Hydronephrosis noted. Biopsy to be done. Biopsy set for 01/21 due to insurance not covering on 01/14. Dr. Samaniego. Preop will be 01/13. Pacemaker battery okay for 4 months. Preop coumadin being managed by Dr. Kline/ [facility]. Memory issues noted PAST MEDICAL HISTORY Diagnosis Date Allergic rhinitis, [...] Right shoulder s/p fall with reduction at [facility] Type II or unspecified type diabetes mellitus without mention of complication, not stated as uncontrolled Unspecified asthma(493.90) Unspecified essential hypertension Current Outpatient Medications Medication Sig albuterol HFA (PROAIR HFA) 90 mcg/actuation inhaler Inhale 2 Puffs as instructed every 4 hours as needed for wheezing/shortness of breath. 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 ([facility] pulmonology) blood sugar diagnostic (BLOOD GLUCOSE [...] this visit. Review of Systems Objective BP 120/68 (BP Site: Left Arm, BP Position: Sitting, BP Cuff Size: Large Adult) Pulse 60 Temp 36.9 ?C (98.5 ?F) (Left Tympanic) Wt 88 kg (194 lb) BMI 31.31 kg/m? Physical Exam Constitutional: Appearance: Normal appearance. HENT: Head: Normocephalic. Eyes: Conjunctiva/sclera: Conjunctivae normal. Cardiovascular: Rate and Rhythm: Normal rate and regular rhythm. Heart sounds: Normal heart sounds. Pulmonary: Effort: Pulmonary effort is normal. Breath sounds: Normal breath sounds. Skin: General: Skin is warm and dry. Comments: Right pretibial leg ulcer noted about 15mm diameter with clean edges, no slough or redness around wound. Clean pink base. Neurological: General: No focal deficit present. Mental Status: She is alert and oriented to person, place, and time. Psychiatric: Mood and Affect: Mood normal. Behavior: Behavior normal. Thought Content: Thought content normal. Judgment: Judgment normal. MINI MENTAL EXAM I. ORIENTATION (MAXIMUM SCORE 10) DATE (1) 1 YEAR(1) 1 MONTH(1) 1 DAY(1) 1 SEASON(1) 0 HOSPITAL(1) 1 FLOOR(1) 1 CITY(1) 1 COUNTY (1) 1 STATE(1) 1 II Immediate recall(Maximum score 3) BALL 1 FLAG 0 TREE 0 Attention and Calculation (Maximum score 5) a. Counting Backward b. Spelling Backward D 1 L 1 R 0 O 0 W 1 IV. Recall(Maximum score 9) Ball 1 Flag 0 (more content not included)... Normal [facility] UA DIP, URINE (POC)on 2023 BILIRUBIN UA (POCT) Negative Negative [facility] CLARITY UA (POCT) Clear [facility] COLOR UA (POCT) Yellow [facility] GLUCOSE UA (POCT) Negative Negative mg/dL [facility] Hemoglobin Ql (U) Moderate Abnormal Negative [facility] Interpretation and review of laboratory results Abnormal [facility] KETONE UA (POCT) Negative Negative mg/dL [facility] LEUKOCYTES UA (POCT) Trace Abnormal Negative [facility] NITRITE UA (POCT) Negative Negative [facility] PH UA (POCT) 5.5 4.5 - 8.0 [facility] Protein Ql (U) 100 mg/dL Abnormal Negative [facility] SPECIFIC GRAVITY UA (POCT) >=1.030 1.005 - 1.030 [facility] UROBILINOGEN UA (POCT) 0.2 Normal E.U./dL [facility] Location:[facility], [address] [place] [address], [place], [address] [facility] POINT OF CARE [facility] NEDAKEISHA SANTOYO ([id number]) 1945 F Date Time Provider Department 01/04/24 JOON LOPEZ During your visit today, we recorded the following information about you: Any Peacock LPN 01/04/2024 10:01 AM Signed Daughter Keisha calls to report that pt is having memory issues. Pt will tell family something and then forget right after that she told them. Keisha reports pt sits watching tv all day. Keisha reports they have seen it more so since pt got out of hospital and the family has bee around pt more. Keisha is asking if there is a dementia type of test that can be given to the pt at tomorrow 01/04. Keisha reports pt will get mad if daughter says anything if front of the dr. BOONE Fowler Liza D, MD 01/05/2024 8:07 PM Signed Did MME and discussed memory during appointment. Patient brought up memory after I did MME as a cognition screening for the year. Allergies As of Date: 01/04/2024 Noted Allergy Reaction TIZANIDINE 10/07/2023 1 - Mental Status Change 14 - Other: See Comments Comments: Made her feel like in another world. Very dry mouth. Stumbling/falling AMOXICILLIN 07/14/2005 4 - Hives ASPIRIN 01/30/2009 Comments: Hives, shortness of breath SULFA (SULFONAMIDE ANTIBIOTICS) 07/14/2005 4 - Hives Date Reviewed: 10/07/2023 Reviewed by: Joon Lopez MD - Fully Assessed Reason for Visit: memory issue [Other] Prescriptions as of 01/05/2024 - nitrofurantoin monohydrate and macrocrystal (MACROBID) 100 mg capsule Take 1 capsule by mouth two times a day with meals for 7 days. - albuterol HFA (PROAIR HFA) 90 mcg/actuation inhaler Inhale 2 Puffs as instructed every 4 hours as needed for wheezing/shortness of breath. 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 - tens unit electrodes (TENS UNITS ELECTRODES) 2X2 pads Change pad every month as indicated - gabapentin (NEURONTIN) 300 mg capsule Take 2 capsules by mouth daily at bedtime AND 1 capsule every morning. Do all this for 180 days. - triamcinolone acetonide (KENALOG) 0.1 % cream Apply 1 application to affected area three times daily as needed. For rash on extremities and leg - budesonide-formoterol (SYMBICORT) 160-4.5 mcg/actuation inhaler Inhale 2 Puffs as instructed twice daily. ([facility] pulmonology) - blood sugar diagnostic (BLOOD GLUCOSE TEST) test strip Test blood sugar(s) 1 times daily. Dx: Type 2 DM - Controlled E11.9 Insulin: No - Lancets lancets Test blood sugar(s) 1 times daily. Dx: Type 2 DM - Controlled E11.9 Insulin: No - metFORMIN ER (GLUCOPHAGE XR) 500 mg 24 hr tablet Take 2 tablets by mouth twice daily with meals. - glimepiride (AMARYL) 2 mg tablet Take 1 tablet by mouth once daily as needed. for blood sugar over 200. (Has pills left from 2017) - atorvastatin (LIPITOR) 10 mg tablet Take 1 tablet by mouth once daily. - warfarin (COUMADIN) 5 mg tablet Take 1 tablet by mouth once daily. - diclofenac (VOLTAREN ARTHRITIS PAIN) 1 % topical gel Apply 2 g to affected area four times daily. - magnesium oxide 400 mg magnesium cap Take 400 mg by mouth once daily. Meds Comments as of 12/10/2019: Pt stating not taking glimepiride secondary to cost of Rx. 12/10/2019 Keon Herbert Problem List As Of Date 01/04/2024 Noted Resolved Congenital obstructive defects of renal pelvis *09/29/2005 CALCULUS OF KIDNEY [N20.0] 09/29/2005 Contact dermatitis and other eczema [692] 09/29/2005 09/16/2021 PALPITATIONS [R00.2] Obesity, unspecified [E66.9] 09/23/2023 ALLERGIC RHINITIS NOS [J30.9] Essential hypertension [I10] Contact dermatitis and other eczema, due to uns* 09/16/2021 Dizziness and giddiness [R42] 09/23/2023 Mild intermittent asthma without complication [* CALCANEAL SPUR [M77.30] 03/10/2008 Back Strain, recurrent [S39.012A] Hyperlipemia [E78.5] 12/19/2010 Diabetes mellitus type 2, controlled, without c* Rotator cuff tear [M75.100] 05/06/2011 DDD (degenerative disc disease), lumbar [M51.36] Muscle spasm [M62.838] Severe low back pain [M54.50] 12/28/2018 Atrial flutter (HCC) [I48.92] 04/12/2019 Anticoagulated on Coumadin [Z79.01] 04/12/2019 RAMESH (obstructive sleep apnea) [G47.33] 01/21/2021 Pacemaker [Z95.0] 01/21/2021 Bilateral carpal tunnel syndrome [G56.03] 01/21/2021 Pulmonary hypertension (HCC) [I27.20] 05/03/2023 Ulcer of right lower extremity with fat layer e*07/26/2023 Obesity, Class I, BMI 30-34.9 [E66.9] 09/23/2023 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*09/23/2023 Encounter Status:Closed by JOON LOPEZ on 01/05/24 [facility] KEISHA RED ([id number]) 1945 F Date Time Provider Department 12/14/23 JOON LOPEZ INTMWS During your visit today, we recorded the following information about you: Yuko Ordonez, RN 12/14/2023 1:04 PM Signed Patient's daughter Brooke calls and states that patient continues to have a lot of back pain. Daughter is asking if provider can write a referral to spine doctor and fax referral to [facility] [phone]. Please review and advise, VLAD Birch Terri, RN ELIGIBILITY.[employer]E[facility] GUNNER 12/14/2023 4:47 PM Signed Consult placed, see below Yuko Ordonez RN 12/15/2023 8:25 AM Signed Consults, office notes, and demographic faxed over to [facility] as requested. Patient notified that paperwork faxed. Patient voices understanding. Yuko Ordonez RN Allergies As of Date: 12/14/2023 Noted Allergy Reaction TIZANIDINE 10/07/2023 1 - Mental Status Change 14 - Other: See Comments Comments: Made her feel like in another world. Very dry mouth. Stumbling/falling AMOXICILLIN 07/14/2005 4 - Hives ASPIRIN 01/30/2009 Comments: Hives, shortness of breath SULFA (SULFONAMIDE ANTIBIOTICS) 07/14/2005 4 - Hives Date Reviewed: 10/07/2023 Reviewed by: Joon Lopez MD - Fully Assessed Reason for Visit: referral request [Other] Primary Visit Diagnosis:Severe low back pain [M54.50] Other Visit Diagnosis:DDD (degenerative disc disease), lumbar [M51.36] Order(s):[facility] [[id number]] Order #: [id number]: 1 FUTURE Prescriptions as of 12/15/2023 - albuterol HFA (PROAIR HFA) 90 mcg/actuation inhaler Inhale 2 Puffs as instructed every 4 hours as needed for wheezing/shortness of breath. 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 - tens unit electrodes (TENS UNITS ELECTRODES) 2X2 pads Change pad every month as indicated - gabapentin (NEURONTIN) 300 mg capsule Take 2 capsules by mouth daily at bedtime AND 1 capsule every morning. Do all this for 180 days. - triamcinolone acetonide (KENALOG) 0.1 % cream Apply 1 application to affected area three times daily as needed. For rash on extremities and leg - budesonide-formoterol (SYMBICORT) 160-4.5 mcg/actuation inhaler Inhale 2 Puffs as instructed twice daily. ([facility] pulmonology) - blood sugar diagnostic (BLOOD GLUCOSE TEST) test strip Test blood sugar(s) 1 times daily. Dx: Type 2 DM - Controlled E11.9 Insulin: No - Lancets lancets Test blood sugar(s) 1 times daily. Dx: Type 2 DM - Controlled E11.9 Insulin: No - metFORMIN ER (GLUCOPHAGE XR) 500 mg 24 hr tablet Take 2 tablets by mouth twice daily with meals. - glimepiride (AMARYL) 2 mg tablet Take 1 tablet by mouth once daily as needed. for blood sugar over 200. (Has pills left from 2017) - atorvastatin (LIPITOR) 10 mg tablet Take 1 tablet by mouth once daily. - warfarin (COUMADIN) 5 mg tablet Take 1 tablet by mouth once daily. - diclofenac (VOLTAREN ARTHRITIS PAIN) 1 % topical gel Apply 2 g to affected area four times daily. - magnesium oxide 400 mg magnesium cap Take 400 mg by mouth once daily. Meds Comments as of 12/10/2019: Pt stating not taking glimepiride secondary to cost of Rx. 12/10/2019 Keon Herbert Problem List As Of Date 12/14/2023 Noted Resolved Congenital obstructive defects of renal pelvis *09/29/2005 CALCULUS OF KIDNEY [N20.0] 09/29/2005 Contact dermatitis and other eczema [692] 09/29/2005 09/16/2021 PALPITATIONS [R00.2] Obesity, unspecified [E66.9] 09/23/2023 ALLERGIC RHINITIS NOS [J30.9] Essential hypertension [I10] Contact dermatitis and other eczema, due to uns* 09/16/2021 Dizziness and giddiness [R42] 09/23/2023 Mild intermittent asthma without complication [* CALCANEAL SPUR [M77.30] 03/10/2008 Back Strain, recurrent [S39.012A] Hyperlipemia [E78.5] 12/19/2010 Diabetes mellitus type 2, controlled, without c* Rotator cuff tear [M75.100] 05/06/2011 DDD (degenerative disc disease), lumbar [M51.36] Muscle spasm [M62.838] Severe low back pain [M54.50] 12/28/2018 Atrial flutter (HCC) [I48.92] 04/12/2019 Anticoagulated on Coumadin [Z79.01] 04/12/2019 RAMESH (obstructive sleep apnea) [G47.33] 01/21/2021 Pacemaker [Z95.0] 01/21/2021 Bilateral carpal tunnel syndrome [G56.03] 01/21/2021 Pulmonary hypertension (HCC) [I27.20] 05/03/2023 Ulcer of right lower extremity with fat layer e*07/26/2023 Obesity, Class I, BMI 30-34.9 [E66.9] 09/23/2023 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*09/23/2023 Encounter Status:Closed by YUKO ORDONEZ on 12/15/23 [facility] CNOVon 10-07-2023 CNOV Office Visit (INTMWS ) NEDAKEISHA Marie ([id number]) 1945 F Date Time Provider Department 10/07/23 2:20 PM JOON LOPEZ INTMWS During your visit today, we recorded the following information about you: Pulse Respiration Blood pressure Weight 80/minute 16/minute 140/80 88.5 kg Joon Lopez MD 11/10/2023 1:30 PM Signed This note was created using [employer]. Subjective Keisha Red is a 78 year [...] Right shoulder s/p fall with reduction at [facility] Type II or unspecified type diabetes [...] hours as needed for wheezing/shortness of breath. 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 ([facility] pulmonology) blood sugar diagnostic (BLOOD GLUCOSE [...] pg 32.1 32.8 MCHC 30.5 - 36.0 g/ (more content not included)... Normal [facility] KEISHA RED ([id number]) 1945 F Date Time Provider Department 09/29/23 JOON LOPEZ During your visit today, we recorded the following information about you: JewelsTamy BOONE 09/29/2023 2:36 PM Signed Patient calling asking for something for muscle [...] asking for something to help. Patient uses [facility] for her pharmacy. Please advise Whitney Hammond APRN.FRONT DESK MONITOR 09/30/2023 9:17 AM Signed Looks like she has had Robaxin in the past, insurance preference is for Zanaflex, script sent to the pharmacy. Liza Santana LPN 09/30/2023 10:34 AM Signed Below left on identified vm. Liza Santana LPN Allergies As of Date: 09/29/2023 Noted Allergy Reaction AMOXICILLIN 07/14/2005 4 - Hives ASPIRIN 01/30/2009 Comments: Hives, shortness of breath SULFA (SULFONAMIDE ANTIBIOTICS) 07/14/2005 4 - Hives Date Reviewed: 09/23/2023 Reviewed by: Whitney Hammond APRN.FRONT DESK MONITOR - Fully Assessed Reason for Visit: Medication Request [138] Order(s):tiZANidine (ZANAFLEX) 4 mg tabletTake 1 tablet by mouth every 8 hours as needed.Disp: 90 tabletRfl: 1 Prescriptions as of 09/30/2023 - tiZANidine (ZANAFLEX) 4 mg tablet Take 1 tablet by mouth every 8 hours as needed. - oxyCODONE-acetaminoph en (PERCOCET) 5-325 mg tablet Take 1 tablet by mouth every 8 hours as needed (for severe back pain and foot pain) for up to 7 days. - albuterol HFA (PROAIR HFA) 90 mcg/actuation inhaler Inhale 2 Puffs as instructed every 4 hours as needed for wheezing/shortness of breath. 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 - tens unit electrodes (TENS UNITS ELECTRODES) 2X2 pads Change pad every month as indicated - gabapentin (NEURONTIN) 300 mg capsule Take 2 capsules by mouth daily at bedtime AND 1 capsule every morning. Do all this for 180 days. - triamcinolone acetonide (KENALOG) 0.1 % cream Apply 1 application to affected area three times daily as needed. For rash on extremities and leg - budesonide-formoterol (SYMBICORT) 160-4.5 mcg/actuation inhaler Inhale 2 Puffs as instructed twice daily. ([facility] pulmonology) - blood sugar diagnostic (BLOOD GLUCOSE TEST) test strip Test blood sugar(s) 1 times daily. Dx: Type 2 DM - Controlled E11.9 Insulin: No - Lancets lancets Test blood sugar(s) 1 times daily. Dx: Type 2 DM - Controlled E11.9 Insulin: No - metFORMIN ER (GLUCOPHAGE XR) 500 mg 24 hr tablet Take 2 tablets by mouth twice daily with meals. - glimepiride (AMARYL) 2 mg tablet Take 1 tablet by mouth once daily as needed. for blood sugar over 200. (Has pills left from 2017) - atorvastatin (LIPITOR) 10 mg tablet Take 1 tablet by mouth once daily. - warfarin (COUMADIN) 5 mg tablet Take 1 tablet by mouth once daily. - diclofenac (VOLTAREN ARTHRITIS PAIN) 1 % topical gel Apply 2 g to affected area four times daily. - magnesium oxide 400 mg magnesium cap Take 400 mg by mouth once daily. Meds Comments as of 12/10/2019: Pt stating not taking glimepiride secondary to cost of Rx. 12/10/2019 Keon Herbert Problem List As Of Date 09/29/2023 Noted Resolved Congenital obstructive defects of renal pelvis *09/29/2005 CALCULUS OF KIDNEY [N20.0] 09/29/2005 Contact dermatitis and other eczema [692] 09/29/2005 09/16/2021 PALPITATIONS [R00.2] Obesity, unspecified [E66.9] 09/23/2023 ALLERGIC RHINITIS NOS [J30.9] Essential hypertension [I10] Contact dermatitis and other eczema, due to uns* 09/16/2021 Dizziness and giddiness [R42] 09/23/2023 Mild intermittent asthma without complication [* CALCANEAL SPUR [M77.30] 03/10/2008 Back Strain, recurrent [S39.012A] Hyperlipemia [E78.5] 12/19/2010 Diabetes mellitus type 2, controlled, without c* Rotator cuff tear [M75.100] 05/06/2011 DDD (degenerative disc disease), lumbar [M51.36] Muscle spasm [M62.838] Severe low back pain [M54.50] 12/28/2018 Atrial flutter (HCC) [I48.92] 04/12/2019 Anticoagulated on Coumadin [Z79.01] 04/12/2019 RAMESH (obstructive sleep apnea) [G47.33] 01/21/2021 Pacemaker [Z95.0] 01/21/2021 Bilateral carpal tunnel syndrome [G56.03] 01/21/2021 Pulmonary hypertension (HCC) [I27.20] 05/03/2023 Ulcer of right lower extremity with fat layer e*07/26/2023 Obesity, Class I, BMI 30-34.9 [E66.9] 09/23/2023 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*09/23/2023 Prescriptions ordered this encounter Disp Refills Start End TIZANIDINE 4 MG TABLET 90 t* 1 09/30/2023 Route: ORAL Sig: Take 1 tablet by mouth every 8 hours as needed. Medications Discontinued During This Enco (more content not included)... Normal [facility] ALBUMIN/CREAT RATIO RND URon 09-23-2023 Albumin DL <= 20 mg/L (U) [Mass/Vol] 16.5 mg/L Normal [facility] Comment on above: Order Comment: Speci men Type: URINE SPECIMENOrdering Facility: [facility] Address: [address] [place] [address] Performed By: #### U ACR ####[facility] LABCLIA [id number] [place] [address] [place] Albumin/Creatinine (U) [Mass ratio] 12 mg/g Normal <30 [facility] Comment on above: Order Comment: Speci men Type: URINE SPECIMENOrdering Facility: [facility] Address: [address] [place] [address] Result Comment: Adul t Male and Female Nephrotic Criteria: <30 mg/g is considered normal to mildly increased 30-300 mg/g is considered moderately increased >300 mg/g is considered severely increased KDIGO. (2013). KDIGO 2012 Clinical Practice Guideline for the Evaluation and Management of Chronic Kidney Disease. Official Journal of the International Society of Nephrology, 3(1), 1-150. Performed By: #### U ACR ####[facility] LABCLIA [id number] [place] [address] [place] Creatinine (U) [Mass/Vol] 135.7 mg/dL Normal 20.0-300.0 [facility] Comment on above: Order Comment: Speci men Type: URINE SPECIMENOrdering Facility: [facility] Address: [address] [place] [address] Performed By: #### U ACR ####[facility] LABCLIA [id number] [place] [address] [place] CBC panel Auto (Bld)on 09-23 Erythrocyte distribution width (RBC) [Ratio] 12.5 % Normal 11.5-15.0 [facility] Comment on above: Order Comment: Speci men Type: BLOOD SPECIMENOrdering Facility: [facility] Address: [address] [place] [address] Performed By: #### 5 8410-2 ####[facility] LABCLIA [id number] [place] [address] [place] Hematocrit (Bld) [Volume fraction] 43.3 % Normal 36.0-46.0 [facility] Comment on above: Order Comment: Speci men Type: BLOOD SPECIMENOrdering Facility: [facility] Address: [address] [place] [address] Performed By: #### 5 8410-2 ####[facility] LABCLIA [id number] [place] [address] [place] Hemoglobin (Bld) [Mass/Vol] 14.4 g/dL Normal 11.5-15.5 [facility] Comment on above: Order Comment: Speci men Type: BLOOD SPECIMENOrdering Facility: [facility] Address: [address] [place] [address] Performed By: #### 5 8410-2 ####[facility] [id number] [place] [address] [place] MCH (RBC) [Entitic mass] 32.8 pg Normal 26.0-34.0 [facility] Comment on above: Order Comment: Speci men Type: BLOOD SPECIMENOrdering Facility: [facility] Address: [address] [place] [address] Performed By: #### 5 8410-2 ####[facility] [id number] [place] [address] [place] MCHC (RBC) [Mass/Vol] 33.3 g/dL Normal 30.5-36.0 [facility] Comment on above: Order Comment: Speci men Type: BLOOD SPECIMENOrdering Facility: [facility] Address: [address] [place] [address] Performed By: #### 5 8410-2 ####[facility] [id number] [place] [address] [place] MCV (RBC) [Entitic vol] 98.6 fL Normal 80.0-100.0 [facility] Comment on above: Order Comment: Speci men Type: BLOOD SPECIMENOrdering Facility: [facility] Address: [address] [place] [address] Performed By: #### 5 8410-2 ####[facility] [id number] [place] [address] [place] Nucleated RBC (Bld) [#/Vol] 10*3/uL Normal <0.01 [facility] Comment on above: Order Comment: Speci men Type: BLOOD SPECIMENOrdering Facility: [facility] Address: [address] [place] [address] Performed By: #### 5 8410-2 ####[facility] LABCLIA [id number] [place] [address] [place] Platelet mean volume (Bld) [Entitic vol] 10.1 fL Normal 9.0-12.7 [facility] Comment on above: Order Comment: Speci men Type: BLOOD SPECIMENOrdering Facility: [facility] Address: [address] [place] [address] Performed By: #### 5 8410-2 ####[facility] LABIA [id number] [place] [address] [place] Platelets (Bld) [#/Vol] 163 10*3/uL Normal 150-400 [facility] Comment on above: Order Comment: Speci men Type: BLOOD SPECIMENOrdering Facility: [facility] Address: [address] [place] [address] Performed By: #### 5 8410-2 ####[facility] LABIA [id number] [place] [address] [place] RBC (Bld) [#/Vol] 4.39 10*6/uL Normal 3.90-5.20 [facility] Comment on above: Order Comment: Speci men Type: BLOOD SPECIMENOrdering Facility: [facility] Address: [address] [place] [address] Performed By: #### 5 8410-2 ####[facility] LABIA [id number] [place] [address] [place] WBC (Bld) [#/Vol] 8.04 10*3/uL Normal 3.70-11.00 [facility] Comment on above: Order Comment: Speci men Type: BLOOD SPECIMENOrdering Facility: [facility] Address: [address] [place] [address] Performed By: #### 5 8410-2 ####[facility] LABIA [id number] [place] [address] [place] CNOVon 09-23-2023 CNOV Office Visit (INTMWS ) KEISHA RED ([id number]) 1945 F Date Time Provider Department 09/23/23 9:20 AM WHITNEY HAMMOND INTMWS During your visit today, we recorded the following information about you: Pulse Blood pressure Weight 83/minute 128/70 89.8 kg Whitney Hammond APRN.FRONT DESK MONITOR 09/23/2023 10:02 AM Signed SUBJECTIVE Keisha Red is a 78 year [...] Fib. No recent bleeding issues. Follows with [facility]. No chest pains or chest tightness. Her medications were reviewed today and her list is now up to date. Medications Current Outpatient Medications Medication Sig albuterol HFA (PROAIR HFA) 90 mcg/actuation inhaler Inhale 2 Puffs as instructed every 4 hours as needed for wheezing/shortness of breath. 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 Do all this for 180 days. triamcinolone acetonide (KENALOG) 0.1 % cream Apply 1 application to affected area three times daily as needed. For rash on extremities and leg budesonide-formoterol (SYMBICORT) 160-4.5 mcg/actuation inhaler Inhale 2 Puffs as instructed twice daily. ([facility] pulmonology) methocarbamol (ROBAXIN) 500 mg tablet [...] Take 400 mg by mouth once daily. oxyCODONE-acetaminoph en (PERCOCET) 5-325 mg tablet Take 1 tablet [...] Extremity With Fat Layer Exposed ([facility]) - 07/26/2023 Pulmonary Hypertension ([facility]) - 05/03/2023 Ramesh (Obstructive Sleep Apnea) - 01/21/2021 Pacemaker - 01/21/2021 Bilateral Carpal Tunnel Syndrome - 01/21/2021 Atrial Flutter (Hcc) - 04/12/2019 Anticoagulated On Coumadin - 04/12/2019 Severe Low Back Pain - 12/28/2018 Ddd (Degenerative Disc Disease), Lumbar Comment: Dr. Agudelo Muscle Spasm Rotator Cuff Tear - 05/06/2011 Diabetes Mellitus Type 2, Controlled, Without Complications ([facility]) Hyperlipemia - 12/19/2010 Back Strain, recurrent [...] is not ill-appearing, toxic-appearing or diaphoretic. HENT: Hea (more content not included)... Normal [facility] Comprehensive metabolic 2000 panelon 09-23-2023 Albumin [Mass/Vol] 4.2 g/dL Normal 3.9-4.9 [facility] Comment on above: Order Comment: Speci men Type: BLOOD SPECIMENOrdering Facility: [facility] Address: [address] [place] [address] Performed By: #### 2 4331-1, ####[facility] LABCLIA [id number] [place] [address] [place] ALP [Catalytic activity/Vol] 86 U/L Normal 34-123 [facility] Comment on above: Order Comment: Speci men Type: BLOOD SPECIMENOrdering Facility: [facility] Address: [address] [place] [address] Performed By: #### 2 4331-1, ####[facility] LABCLIA [id number] [place] [address] [place] ALT [Catalytic activity/Vol] 12 U/L Normal 7-38 [facility] Comment on above: Order Comment: Speci men Type: BLOOD SPECIMENOrdering Facility: [facility] Address: [address] [place] [address] Performed By: #### 2 4331-1, ####[facility] LABCLIA [id number] [address] [address] [place] Anion gap [Moles/Vol] 11 mmol/L Normal 9-18 [facility] Comment on above: Order Comment: Speci men Type: BLOOD SPECIMENOrdering Facility: [facility] Address: [address] [place] [address] Performed By: #### 2 4331-1, ####[facility] LABCLIA [id number] [place] [address] [place] AST [Catalytic activity/Vol] 23 U/L Normal 13-35 [facility] Comment on above: Order Comment: Speci men Type: BLOOD SPECIMENOrdering Facility: [facility] Address: [address] [place] [address] Performed By: #### 2 4331-1, ####[facility] LABCLIA [id number] [place] [address] [place] Bilirubin [Mass/Vol] 0.6 mg/dL Normal 0.2-1.3 [facility] Comment on above: Order Comment: Speci men Type: BLOOD SPECIMENOrdering Facility: [facility] Address: [address] [place] [address] Performed By: #### 2 4331-1, ####[facility] LABCLIA [id number] [place] [address] [place] Calcium [Mass/Vol] 9.5 mg/dL Normal 8.5-10.2 [facility] Comment on above: Order Comment: Speci men Type: BLOOD SPECIMENOrdering Facility: [facility] Address: [address] [place] [address] Performed By: #### 2 4331-1, ####[facility] LABCLIA [id number] [address] [address] [place] Chloride [Moles/Vol] 100 mmol/L Normal 97-105 [facility] Comment on above: Order Comment: Speci men Type: BLOOD SPECIMENOrdering Facility: [facility] Address: [address] [place] [address] Performed By: #### 2 4331-1, ####[facility] LABCLIA [id number] [place] [address] [place] CO2 [Moles/Vol] 27 mmol/L Normal 22-30 [facility] Comment on above: Order Comment: Speci men Type: BLOOD SPECIMENOrdering Facility: [facility] Address: [address] [place] [address] Performed By: #### 2 4331-, ####[facility] LABCLIA [id number] [place] [address] [place] Creatinine [Mass/Vol] 1.01 mg/dL High 0.58-0.96 [facility] Comment on above: Order Comment: Speci men Type: BLOOD SPECIMENOrdering Facility: [facility] Address: [address] [place] [address] Performed By: #### 2 4331-1, ####[facility] LABIA [id number] [place] [id number] [place] Creatinine and Glomerular filtration rate.predicted panel (S/P/Bld) 58 mL/min/1.73m??? Low >=60 [facility] Comment on above: Order Comment: Speci men Type: BLOOD SPECIMENOrdering Facility: [facility] Address: [address] [place] [address] Result Comment: Monique mated Glomerular Filtration Rate (eGFR) is calculated using the 2020 CKD-EPI creatinine equation. This equation utilizes serum creatinine, sex, and age as parameters. The creatinine assay has traceable calibration to isotope dilution-mass spectrometry. Refer to KDIGO guidelines for clinical interpretation. In patients with unstable renal function, e.g. those with acute kidney injury, the eGFR may not accurately reflect actual GFR. Performed By: #### 2 4331-, ####[facility] LABCLIA [id number] [place] [address] [place] Glucose [Mass/Vol] 140 mg/dL High 74-99 [facility] Comment on above: Order Comment: Speci men Type: BLOOD SPECIMENOrdering Facility: [facility] Address: [address] [place] [address] Result Comment: The [place] Diabetes Association (ADA) provides guidance for cutoff values for fasting glucose and random glucose. The ADA defines fasting as no caloric intake for at least 8 hours. Fasting plasma glucose results between 100 to 125 [...] Standards of Medical Care in Diabetes 2016, [place] [employer] Association. Diabetes Care. 2016.39(Suppl 1). Performed By: #### 2 4331-, ####[facility] LABCLIA [id number] [place] [id number] [place] Potassium [Moles/Vol] 4.4 mmol/L Normal 3.7-5.1 [facility] Comment on above: Order Comment: Speci men Type: BLOOD SPECIMENOrdering Facility: [facility] Address: [address] [place] [address] Performed By: #### 2 433-, ####[facility] LABCLIA [id number] [place] [address] [place] Protein [Mass/Vol] 7.2 g/dL Normal 6.3-8.0 [facility] Comment on above: Order Comment: Speci men Type: BLOOD SPECIMENOrdering Facility: [facility] Address: [address] [place] [address] Performed By: #### 2 4331-1, ####[facility] LABCLIA [id number] [place] [address] [place] Sodium [Moles/Vol] 138 mmol/L Normal 136-144 [facility] Comment on above: Order Comment: Speci men Type: BLOOD SPECIMENOrdering Facility: [facility] Address: [address] [place] [address] Performed By: #### 2 4331-1, ####[facility] LABCLIA [id number] [place] [address] [place] Urea nitrogen [Mass/Vol] 14 mg/dL Normal 7-21 [facility] Comment on above: Order Comment: Speci men Type: BLOOD SPECIMENOrdering Facility: [facility] Address: [address] [place] [address] Performed By: #### 2 4331-1, ####[facility] LABCLIA [id number] [place] [address] [place] HbA1c (Bld)on 09-23-2023 Average glucose Estimated from glycated hemoglobin (Bld) [Mass/Vol] 140 mg/dL Normal [facility] Comment on above: Order Comment: Speci men Type: BLOOD SPECIMENOrdering Facility: [facility] Address: [address] [place] [address] Result Comment: eAG: (Estimated average glucose) is a calculated value from HgbA1c and is software sales representative of the average blood glucose level in the last 2-3 month period. Performed By: #### 5 5454-3 ####[facility] LABCLIA [id number] [place] [address] [place] HbA1c (Bld) [Mass fraction] 6.5 % High 4.3-5.6 [facility] Comment on above: Order Comment: Speci men Type: BLOOD SPECIMENOrdering Facility: [facility] Address: [address] [place] [address] Result Comment: [place] Diabetes Association guidelines indicate that patients with HgbA1c in the range 5.7-6.4% are at increased risk for development of diabetes, and intervention by lifestyle modification may be beneficial. HgbA1c greater or equal to 6.5% is considered diagnostic of diabetes. Performed By: #### 5 5454-3 ####[facility] LABCLIA [id number] [place] [address] [place] Lipid 1996 panelon 3 Cholesterol [Mass/Vol] 161 mg/dL Normal <200 [facility] Comment on above: Order Comment: Josette men Type: BLOOD SPECIMENOrdering Facility: [facility] Address: [address] [place] [address] Result Comment: <200 mg/dL, Desirable 200-239 mg/dL, Borderline high >239 mg/dL, High Performed By: #### 2 4331-1, 53150-9 ####[facility] LABCLIA [id number] [place] [address] [place] Cholesterol in HDL [Mass/Vol] 51 mg/dL Normal >39 [facility] Comment on above: Order Comment: Jaydai men Type: BLOOD SPECIMENOrdering Facility: [facility] Address: [address] [place] [address] Result Comment: 40-5 9 mg/dL, Acceptable >59 mg/dL, High: Negative risk factor for coronary heart disease <40 mg/dL, Low: Positive risk factor for coronary heart disease Performed By: #### 2 4331-1, 39419-1 ####[facility] LABCLIA [id number] [place] [address] [place] Cholesterol in LDL [Mass/Vol] 71 mg/dL Normal <100 [facility] Comment on above: Order Comment: Speci men Type: BLOOD SPECIMENOrdering Facility: [facility] Address: [address] [place] [address] Result Comment: <100 mg/dL, Optimal 100-129 mg/dL, Near optimal/above optimal 130-159 mg/dL, Borderline high 160-189 mg/dL, High >189 mg/dL, Very high Secondary prevention optimal LDL Cholesterol levels are recommended to be < 70 mg/dL Performed By: #### 2 4331-1, ####[facility] LABCLIA [id number] [place] [address] [place] Cholesterol in LDL/Cholesterol in HDL [Mass ratio] 1.39 {ratio} Normal <2.54 [facility] Comment on above: Order Comment: Speci men Type: BLOOD SPECIMENOrdering Facility: [facility] Address: [address] [place] [address] Result Comment: Refe rence: 1. National Cholesterol Education Program ATP III Guideline At-A-Glance Quick Desk Reference: National Heart, Lung, and Blood Wilmer. National Institutes of Health. 2001: NIH Publication No. 01-3305. 2. An International Atherosclerosis Society position paper: global recommendations for the management of dyslipidemia: executive summary, Atherosclerosis. 2014: 232(2):410-413. Performed By: #### 2 4331-, ####[facility] LABCLIA [id number] [place] [address] [place] Cholesterol in VLDL [Mass/Vol] 39 mg/dL High <30 [facility] Comment on above: Order Comment: Speci men Type: BLOOD SPECIMENOrdering Facility: [facility] Address: [address] [place] [address] Performed By: #### 2 4331-1, ####[facility]CLIA [id number] [place] [address] [place] Cholesterol non HDL [Mass/Vol] 110 mg/dL Normal <130 [facility] Comment on above: Order Comment: Speci men Type: BLOOD SPECIMENOrdering Facility: [facility] Address: [address] [place] [address] Result Comment: <130 mg/dL, Optimal 130-159 mg/dL, Near optimal/above optimal 160-189 mg/dL, Borderline high 190-219 mg/dL, High >219 mg/dL, Very high Secondary prevention optimal non HDL Cholesterol levels are recommended to be <100 mg/dL Performed By: #### 2 4331-1, ####[facility]CLIA [id number] [place] [address] [place] Cholesterol.total/Cho lesterol in HDL [Mass ratio] 3.16 {ratio} Normal <5.10 [facility] Comment on above: Order Comment: Speci men Type: BLOOD SPECIMENOrdering Facility: [facility] Address: [address] [place] [address] Performed By: #### 2 4331-1, ####[facility]CLIA [id number] [place] [address] [place] FASTING TIME 13 hrs Normal [facility] Comment on above: Order Comment: Speci men Type: BLOOD SPECIMENOrdering Facility: [facility] Address: [address] [place] [address] Performed By: #### 2 4331-1, ####[facility]CLIA [id number] [place] [address] [place] Triglyceride [Mass/Vol] 197 mg/dL High <150 [facility] Comment on above: Order Comment: Speci men Type: BLOOD SPECIMENOrdering Facility: [facility] Address: [address] [place] [address] Result Comment: <150 mg/dL, Normal 150-199 mg/dL, Borderline high 200-499 mg/dL, High >499 mg/dL, Very high Performed By: #### 2 4331-1, ####[facility] LABCLIA [id number] [place] [id number] [place] CBC W Auto Differential pane l (Bld)on 03-31-2023 Basophils (Bld) [#/Vol] 0.08 10*3/uL <0.11 k/uL [facility] Basophils/100 WBC (Bld) 1.2 % [facility] Differential cell count method Nom (Bld) Auto [facility] Eosinophils (Bld) [#/Vol] 0.32 10*3/uL <0.46 k/uL [facility] Eosinophils/100 WBC (Bld) 4.6 % [facility] Erythrocyte distribution width (RBC) [Ratio] 12.4 % 11.5 - 15.0 % [facility] Hematocrit (Bld) [Volume fraction] 41.7 % 36.0 - 46.0 % [facility] Hemoglobin (Bld) [Mass/Vol] 13.1 g/dL 11.5 - 15.5 g/dL [facility] Immature granulocytes (Bld) [#/Vol] 0.06 10*3/uL <0.10 k/uL [facility] Immature granulocytes/100 WBC (Bld) 0.9 % [facility] Lymphocytes (Bld) [#/Vol] 1.63 10*3/uL 1.00 - 4.00 k/uL [facility] Lymphocytes/100 WBC (Bld) 23.5 % [facility] MCH (RBC) [Entitic mass] 32.1 pg 26.0 - 34.0 pg [facility] MCHC (RBC) [Mass/Vol] 31.4 g/dL 30.5 - 36.0 g/dL [facility] MCV (RBC) [Entitic vol] 102.2 fL High 80.0 - 100.0 fL [facility] Monocytes (Bld) [#/Vol] 0.42 10*3/uL <0.87 k/uL [facility] Monocytes/100 WBC (Bld) 6.1 % [facility] Neutrophils (Bld) [#/Vol] 4.43 10*3/uL 1.45 - 7.50 k/uL [facility] Neutrophils/100 WBC (Bld) 63.7 % [facility] Nucleated RBC (Bld) [#/Vol] <0.01 k/uL [facility] Nucleated RBC/100 WBC (Bld) [Ratio] 0.0 /100 WBC [facility] Platelet mean volume (Bld) [Entitic vol] 9.7 fL 9.0 - 12.7 fL [facility] Platelets (Bld) [#/Vol] 161 10*3/uL 150 - 400 k/uL [facility] RBC (Bld) [#/Vol] 4.08 10*6/uL 3.90 - 5.2 0 m/uL [facility] WBC (Bld) [#/Vol] 6.94 10*3/uL 3.70 - 11. 00 k/uL [facility] HbA1c (Bld)on 03-31-2023 Average glucose Estimated from glycated hemoglobin (Bld) [Mass/Vol] 143 mg/dL [facility] HbA1c (d) [Mass fraction] 6.6 % High 4.3 - 5.6 % [facility] UA DIP, URINE (POC)on 2022 BILIRUBIN UA (POCT) Negative Negative [facility] CLARITY UA (POCT) Clear [facility] COLOR UA (POCT) Yellow [facility] GLUCOSE UA (POCT) Negative Negative mg/dL [facility] HEMOGLOBIN/BLOOD UA (POCT) Large Abnormal Negative [facility] KETONE UA (POCT) Negative Negative mg/dL [facility] LEUKOCYTES UA (POCT) Large Abnormal Negative [facility] NITRITE UA (POCT) Negative Negative [facility] PH UA (POCT) 6.0 4.5 - 8.0 [facility] Protein Ql (U) 100 mg/dL Abnormal Negative mg/dL [facility] SPECIFIC GRAVITY UA (POCT) 1.020 1.005 - 1.030 [facility] UROBILINOGEN UA (POCT) 0.2 E.U./dL Normal E.U./dL [facility] 2019 CORONAVIRUSon 2 SARS-CoV-2 (COVID-19) RNA RUSSELL+probe Ql (Resp) SARS-CoV-2 (Agent of COVID-19) Not Detected by RT-PCR or equivalent method. Not Detected [facility] XR CHEST 2V FRONTAL/LATon [facility] XR Chest PA and Lateralon IMPRESSION: Stable chronic interstitial changes.. No acute cardiopulmonary process. Behavioral Scientist: JULIOCESAR Transcribe Date/Time: May 06 2022 12:00P Dictated by : TAMY RAMIREZ MD This examination was interpreted and the report reviewed and electronically signed by: TAMY RAMIREZ MD on May 06 2022 12:03PM EST [email or web address] E_DIVISION OF RADIOLOGY * * *Final Report* * * DATE OF EXAM: May 06 2022 9:22AM WOX 5291 - XR CHEST 2V FRONTAL/LAT / PROCEDURE REASON: Viral upper respiratory tract infection * * * * Physician Interpretation * * * * EXAMINATION: CHEST RADIOGRAPH (2 VIEW FRONTAL & LATERAL) CLINICAL HISTORY: Viral upper respiratory tract infection MQ: XC2_6 EXAM DATE/TIME: 05/06/2022 9:22 AM COMPARISON: Comparison is made to prior 2 view chest dated 09/25/2014 RESULT: Lines, tubes, and devices: There is a cardiac pacemaker with the tips of its intact leads overlying cardiac silhouette. Lungs and pleura: Chronic interstitial lung changes with lingular and bibasilar fibrotic scarring is stable. Stable biapical pleural thickening noted. There is no focal consolidation or acute pleural process. There is no vascular redistribution to suggest pulmonary edema. Cardiomediastinal silhouette: Unchanged cardiomediastinal silhouette with mildly enlarged cardiac silhouette and unfolded thoracic aorta. Bones/soft tissues: The bony structures are intact with mild degenerative change. No bony destructive process noted. [email or web address] E_DIVISION OF RADIOLOGY Provider, Holly Corbin [facility] - 05/06/2022 * * *Final Report* * * DATE OF EXAM: May 06 2022 9:22AM WOX 5291 - XR CHEST 2V FRONTAL/LAT / PROCEDURE REASON: Viral upper respiratory tract infection * * * * Physician Interpretation * * * * EXAMINATION: CHEST RADIOGRAPH (2 VIEW FRONTAL & LATERAL) CLINICAL HISTORY: Viral upper respiratory tract infection MQ: XC2_6 EXAM DATE/TIME: 05/06/2022 9:22 AM COMPARISON: Comparison is made to prior 2 view chest dated 09/25/2014 RESULT: Lines, tubes, and devices: There is a cardiac pacemaker with the tips of its intact leads overlying cardiac silhouette. Lungs and pleura: Chronic interstitial lung changes with lingular and bibasilar fibrotic scarring is stable. Stable biapical pleural thickening noted. There is no focal consolidation or acute pleural process. There is no vascular redistribution to suggest pulmonary edema. Cardiomediastinal silhouette: Unchanged cardiomediastinal silhouette with mildly enlarged cardiac silhouette and unfolded thoracic aorta. Bones/soft tissues: The bony structures are intact with mild degenerative change. No bony destructive process noted. IMPRESSION IMPRESSION: Stable chronic interstitial changes.. No acute cardiopulmonary process. Behavioral Scientist: JULIOCESAR Transcribe Date/Time: May 06 2022 12:00P Dictated by : TAMY RAMIREZ MD This examination was interpreted and the report reviewed and electronically signed by: TAMY RAMIREZ MD on May 06 2022 12:03PM EST [facility] Radiology Study observation (narrative) [facility] XR Chest PA and LateralOrder ed By: [facility] Provider on 05-06-2022 [facility] HEMOGLOBIN A1C (POC)on 03-25 HbA1c (Bld) [Mass fraction] 6.0 % 4.2 - 5.6 % [facility] ANES POSTPROC EVALon 021 ANES POSTPROC EVAL HNO ID: [id number] Author: Farhat Lino Service: Anesthesiology Author Type: Anesthesiologist Type: Anesthesia Postprocedure Evaluation Filed: 01/23/2021 12:53 PM Note Text: POST ANESTHESIA EVALUATION NOTE : 1945 Procedure Summary Date: 01/23/21 Room / Location: PA OR02 / PA OR Anesthesia Start: 1030 Anesthesia Stop: 1116 Procedures: DECOMPRESSION NERVE MEDIAN CARPAL TUNNEL (Bilateral Wrist) RELEASE TRIGGER FINGER (Left Finger middle) Diagnosis: Bilateral carpal tunnel syndrome Trigger middle finger of left hand Surgeons: Pete Goldsmith Responsible Provider: Lorena Mccrary Anesthesia Type: MAC ASA Status: 3 Anesthesia Type: MAC Last vitals Vitals Value Taken Time BP 150/68 01/23/21 1200 Temp 36 ?C (96.8 ?F) 01/23/21 1128 Pulse 60 01/23/21 1200 Resp 16 01/23/21 1200 SpO2 97 % 01/23/21 1200 Post Anesthesia Patient Status Patient Evaluation: PACU. PACU/ICU Patient Condition: stable. Anticipated Disposition: phase 2 then home. Neurological Status: aware and responsive. Pulmonary Status: breathing comfortably on room air Airway Control: returned to baseline unsupported. Cardiovascular Status: stable. Pain Management: clinically adequate - multimodal analgesia pain management approach Postoperative Hydration: acceptable. Intraoperative Events: no significant anesthesia events Recommendation: continue current plan of care. No complications documented. SIGNATURE: Farhat Lino MD PATIENT NAME: Keisha Red DATE: January 23, 2021 TIME: 12:52 PM CSN: [id number] [facility] ANES PRE-OPon 01-23-2021 ANES PRE-OP HNO ID: [id number] Author: Lorena Mccrary Service: Anesthesiology Author Type: Anesthesiologist Type: Anesthesia Preprocedure Evaluation Filed: 01/23/2021 9:16 AM Note Text: ANESTHESIOLOGY DAY OF SURGERY NOTE : 1945 Procedure(s) (LRB): DECOMPRESSION NERVE MEDIAN CARPAL TUNNEL (Bilateral) RELEASE TRIGGER FINGER (Left) Surgeon(s): Pete Goldsmith Estimated body mass index is 30.11 kg/m? as calculated from the following: Height as of this encounter: 172.7 cm (5' 7.99 ). Weight as of this encounter: 89.8 kg (198 lb). Most recent hematocrit and potassium results: Hematocrit 38.6 03/22/2020 Potassium 3.5 03/22/2020 Relevant Problems ANESTHESIA (+) RAMESH (obstructive sleep apnea) CARDIO (+) Atrial flutter (HCC) (+) Essential hypertension (+) Pacemaker ENDO (+) Diabetes mellitus type 2, controlled, without complications (HCC) -RENAL (+) Calculus of kidney PULMONARY (+) Mild intermittent asthma without complication (+) RAMESH (obstructive sleep apnea) I - PHYSICAL EVALUATION AIRWAY Patient intubated: No. Tracheostomy tube not present Mallampati: II. TM distance: >3 FB. Neck ROM: full ROM without neurological symptoms. Mouth opening: adequate. Short neck: no. Thick neck: no DENTAL Dental findings: teeth intact. Dentures, upper: complete. Additional exam findings: yes. CARDIOVASCULAR Rhythm: regular PULMONARY Breath sounds clear to auscultation. II - ANESTHESIA PLAN ASA Score: 3 Anesthetic Plan: MAC The patient is not a current smoker. Monitoring plan: standard ASA. Postoperative analgesic plan: multimodal analgesia. Anesthetic Risks, Benefits, Alternatives, Personnel Discussed. Consent obtained from: patient.Patient / Surrogate agrees to blood products: blood products not planned DNR status not reviewed with patient and/or family prior to surgery. Significant changes in the patient condition since the History and Physical, not otherwise documented in primary service progress note: no. Potential Anesthesia issues that may suggest increased risk of complications or contraindication to planned procedure: none. Vitals Value Taken Time BP 183/79 01/23/21900 Pulse 98 01/23/21900 Resp 16 01/23/21900 Temp 36.4 ?C (97.5 ?F) 01/23/21900 SpO2 95 % 01/23/21900 Facility-Administered Medications as of 01/23/2021 Medication Dose Route Frequency - lidocaine 10 mg/mL (1 %) 1-2 mg injection (XYLOCAINE) 0.1-0.2 mL INTRADERMAL PRN - lactated ringers iv infusion 5-30 mL/hr INTRAVENOUS CONTINUOUS - clindamycin iv piggyback 600 mg in D5W 50 mL (CLEOCIN) 600 mg INTRAVENOUS Pre-Op Once Outpatient Medications as of 01/23/2021 Medication Sig - atorvastatin (LIPITOR) 10 mg tablet Take 1 tablet by mouth once daily. - budesonide-formoterol (SYMBICORT) 160-4.5 mcg/actuation inhaler Inhale 2 Puffs as instructed twice daily. - metFORMIN ER (GLUCOPHAGE XR) 500 mg 24 hr tablet Take 2 tablets by mouth twice daily with meals. - magnesium oxide 400 mg magnesium cap Take 400 mg by mouth once daily. - warfarin (COUMADIN) 5 mg tablet Take 1 tablet by mouth once daily. - cyclobenzaprine (FLEXERIL) 10 mg tablet Take 0.5-1 tablets by mouth twice daily as needed for Muscle Spasm (may make drowsy, take before bedtime). - gabapentin (NEURONTIN) 300 mg capsule Take 2 capsules by mouth daily at bedtime AND 1 capsule every morning. Do all this for 180 days. - triamcinolone acetonide (KENALOG) 0.1 % cream Apply 1 application to affected area three times daily as needed. For rash on extremities and leg - albuterol HFA (PROAIR HFA) 90 mcg/actuation inhaler Inhale 2 Puffs as instructed every 4 hours as needed. - glimepiride (AMARYL) 2 mg tablet Take 1 tablet by mouth once daily as needed. for blood sugar over 200. - blood sugar diagnostic (RELION PRIME TEST STRIPS) test strip Test glucose 1 x per day. Dx: 250.00. Insulin use: no - TENS unit and electrodes cmpk 1 Each once daily. (Patient taking differently: 1 Each once daily. Patient using PRN ) - TENS UNIT ELECTRODES (TENS UNITS ELECTRODES) 2X2 pads Change pad every month as indicated I have interviewed and examined the patient. I have reviewed the medical record and/or the pre-anesthesia evaluation, pertinent labs, and test results. This contains updated information obtained within 48 hours of Surgery/Procedure. SIGNATURE: Lorena Mccrary MD PATIENT NAME: Keisha Red DATE: January 23, 2021 TIME: 9:15 AM CSN: [id number] [facility] OPERATIVE NOon 01-23-2021 OPERATIVE NO HNO ID: [id number] Author: Pete Goldsmith MD Service: Orthopaedic Surgery Author Type: Physician Type: Operative Report Filed: 02/24/2021 5:43 PM Note Text: [place] [address] [place] OPERATIVE REPORT NAME:Keisha Red [id number] DATE: January 23, 2021 AGE: [age] year old SURGEON 1: Pete Goldsmith M.D. OPERATION: 1. Bilateral carpal tunnel release, open. 2. Left, middle trigger release. ANESTHESIA: MAC with local. PREOPERATIVE DIAGNOSIS: 1. Bilateral carpal tunnel syndrome. 2. Left, middle trigger finger. POSTOPERATIVE DIAGNOSIS: 1. Bilateral carpal tunnel syndrome. 2. Left, middle trigger finger. OPERATIVE INDICATIONS: This is a pleasant 75 year old female who had worsening, numbness, and tingling. Her electrodiagnostic showed Severe carpal tunnel syndrome, she also had locking of the left, middle finger. She suggests that she previously had a trigger release there many years ago . She exhausted conservative management and in the office, we discussed the risks, benefits, alternatives, and potential complications involving carpal tunnel release and she wished to pursue surgical intervention. OPERATIVE FINDINGS: Consistent with postoperative diagnosis. ? Procedure Details: OPERATIVE PROCEDURE: On 01/23/2021, the patient was clearly identified in the preoperative area and marked accordingly on the right and left and palms, and the left middle finger, by myself. Patient was taken to the operative suite and placed in the supine position with an armboard on the right and left. Patient received 600 mg of Clindamycin in the IV within 1 hour of incision or tourniquet. Anesthesia assumed care of the head and neck for the remainder of the case and began a MAC anesthetic. All other bony landmarks were appropriately padded in standard fashion. The right upper extremity had a well-padded upper brachium tourniquet applied with Webril padding and set at 250 mmHg, but not yet inflated. After a betadine swab, the Right palm was injected with 1% lidocaine with epinepherine 1:100,000 for total of 10 mL. The left arm was then, first sterilely prepped and draped in standard fashion. An appropriate time-out was conducted and all in the room were in agreement, signed consent form was on the chart. The upper extremity was exsanguinated with an Esmarch bandage and the tourniquet was applied at 250 mmHg. Local anesthetic was provided at the palm and wrist with 1% lidocaine with epinepherine 1:100,000 for total of 10 mL. A longitudinal incision was made with in line with the third web space from 1 cm distal of the wrist crease to Espinoza's cardinal line. I used Mini Rakes to retract the soft tissues. Bipolar electrocautery was used for hemostasis. I bluntly dissected down with Littler scissors to distal edge of the transverse carpal ligament until a flash of fat was noted. I directly divided distal edge of the transverse carpal ligament with a #15 blade. Attention was then focused on the proximal portion and I used Littler scissors to bluntly dissect off the volar surface of the transverse carpal ligament. A carpal tunnel and median nerve protection guide was slid directly under the ligament for dilation and a second time for appropriate positioning, this was passed freely without any resistance. Subsequently, I selected a mini meniscotome [place] blade and slid this in the protective guide, completely dividing the transverse carpal ligament. Mini rakes were used to view up the wound to visualize for complete release and a [place] elevator was used to palpate for complete release. Next, An incision was made over the A1 jody of the left middle finger. This was done superficially with a 15 blade and blunt dissection was taken down longitudinally to the flexor apparatus. The digital nerves were clearly identified and protected throughout the case with Crile retractors. Under direct visualization, I divided the A1 jody site of the middle with a 15 blade. There was obvious tenosynovitis and a slight synovectomy was made with Littler scissors. I used a Ragnell retractor to pull the tendon up through the wound confirming its complete release. The wounds were copiously irrigated and the tourniquet was taken down. Hemostasis was observed with bipolar electrocautery. Closure was done with 4-0 Monosof sutures in horizontal mattress fashion for a total of 2 at each site. Xeroform gauze, 4 x 4s, an eye patch for the finger, light Aaron wrap and Coban was used for final bandage. I then turned my focused to the right upper extremity. The exact same steps in sequential fashion were carried out on the right side for the carpal tunnel release, without the need for a tourniquet, as was outlined previously on the left above. At the completion of the procedure, the median nerve was noted to be completely released both visually and with palpation of the transec (more content not included)... Normal [facility] Microbiology: Culture, Urine on 08-12-2017 CUUR Trimethoprim/Sulfame t ho $ <=20 S Invalid Interpretation Code [employer] Work Phone: Office Visit: UC: bladder in fectionon 08-10-2017 Bilirubin Ql (U) Negative Invalid Interpretation Code [employer] Work Phone: [phone] blood in urine (hemoglobin) by dipstick 2+ Invalid Interpretation Code [employer] Work Phone: [phone] Dietary management education, guidance, and counseling (procedure) yes Invalid Interpretation Code [employer] Work Phone: [phone] Documentation of current medications (procedure) Done Invalid Interpretation Code [employer] Work Phone: [phone] Fall risk assessment No Invalid Interpretation Code [employer] Work Phone: [phone] specific gravity, urine 1.010 Invalid Interpretation Code [employer] Work Phone: [phone] Tobacco smoking status NHIS Never Invalid Interpretation Code [employer] Work Phone: [phone] Tobacco use CPHS Never smoker Invalid Interpretation Code [employer] Work Phone: [phone] Urine, appearance clear Invalid Interpretation Code [employer] Work Phone: [phone] Urine, color lt. yellow Invalid Interpretation Code [employer] Work Phone: [phone] Urine, glucose presence Negative Invalid Interpretation Code [employer] Work Phone: [phone] Urine, ketones presence Negative Invalid Interpretation Code [employer] Work Phone: [phone] Urine, leukocyte esterase presence 2+ Invalid Interpretation Code [employer] Work Phone: [phone] Urine, nitrite presence Negative Invalid Interpretation Code [employer] Work Phone: [phone] Urine, pH 5.0 [pH] Invalid Interpretation Code [employer] Work Phone: [phone] Urine, protein Negative Invalid Interpretation Code [employer] Work Phone: [phone] Urine, urobilinogen presence Negative Invalid Interpretation Code [employer] Work Phone: [phone] Lab Report: Lipid Profileon 07-27-2017 Cholesterol 138 mg/dL Invalid Interpretation Code 200 [employer] Work Phone: [phone] HDL Cholesterol 55 mg/dL Invalid Interpretation Code [employer] Work Phone: [phone] LDL Cholesterol 51 mg/dL Invalid Interpretation Code 0-130 [employer] Work Phone: [phone] Triglyceride 162 mg/dL Invalid Interpretation Code [employer] Work Phone: [phone] very low density lipoproteins 32 mg/dL Invalid Interpretation Code 5-40 [employer] Work Phone: [phone] Lab Report: Liver Profileon 07-27-2017 Alanine aminotransferase (ALT) 23 U/L Invalid Interpretation Code 12-78 [employer] Work Phone: [phone] Albumin 2.2 g/dL Low 3.4-5.0 [employer] Work Phone: [phone] Alkaline phosphatase (ALP) 82 U/L Invalid Interpretation Code 45-117 [employer] Work Phone: [phone] Aspartate aminotransferase (AST) 32 U/L Invalid Interpretation Code 15-37 [employer] Work Phone: [phone] Bilirubin (direct) 0.10 mg/dL Invalid Interpretation Code 0.00-0.30 [employer] Work Phone: [phone] Bilirubin (total) 0.60 mg/dL Invalid Interpretation Code 0.20-1.00 [facility] Work Phone: [phone] Globulin 5.6 g/dL High 2.3-3.5 [facility] Work Phone: [phone] Protein 7.8 g/dL Invalid Interpretation Code 6.4-8.2 [facility] Work Phone: [phone] Chart Maintenanceon 07-23-20 17 Left ventricular Ejection fraction 75 % Invalid Interpretation Code [facility] Work Phone: [phone] Coumadin Management: Warfari n Calcon 07-14-2017 INR Coag RelTime (Bld) 2 to 3 Invalid Interpretation Code [facility] Work Phone: [phone] INR Coag RelTime (Bld) Hospital lab Invalid Interpretation Code [facility] Work Phone: [phone] INR Coag RelTime (PPP) 2.6 {INR} Invalid Interpretation Code [facility] Work Phone: [phone] Prothrombin time (PT) Coag time (PPP) 26.6 s Invalid Interpretation Code [facility] Work Phone: [phone] Replaced Document: Prothromb in Time w/INRon 07-14-2017 Prothrombin time (PT) Coag time (PPP) 26.6 s High 11.7-14.9 [facility] Work Phone: [phone] Chart Maintenanceon 03-26-20 17 Hemoglobin A1c/Hemoglobin.total mass fraction (Bld) 6.4 % Invalid Interpretation Code [facility] Work Phone: [phone] Replaced Document: [employer] E CG Observationson 02-04-2017 EKG QRS axis 25 deg Invalid Interpretation Code [facility] Work Phone: [phone] Interpretation Atrial Rhythm -First degree A-V block P:QRS - 1:1, Abnormal P axis, H Rate 69 Erik = 308-Poor R-wave progression -may be secondary to pulmonary disease consider old anterior infarct. Low voltage -possible pulmonary disease. ABNORMAL Invalid Interpretation Code [facility] Work Phone: [phone] P [place] -90 deg Invalid Interpretation Code [facility] Work Phone: [phone] TN Interval 308 ms Invalid Interpretation Code [employer] Work Phone: [phone] Pulse (Heart Rate) 69 /min Invalid Interpretation Code [employer] Work Phone: [phone] QRS Duration 80 ms Invalid Interpretation Code [employer] Work Phone: [phone] QT Interval new path ms Invalid Interpretation Code [employer] Work Phone: [phone] T [place] 33 deg Invalid Interpretation Code [employer] Work Phone: [phone] Lab Report: Basic Metabolic Profile (BMP)on 01-16-2017 Anion gap 4 mmol/L Low 5-15 [employer] Work Phone: [phone] BUN/Creatinine Ratio 17.7 RATIO Invalid Interpretation Code 10-20 [employer] Work Phone: [phone] Calcium 9.2 mg/dL Invalid Interpretation Code 8.5-10.1 [email or web address] Phone: [phone] Chloride 105 mmol/L Invalid Interpretation Code 98-107 [employer] Work Phone: [phone] CO2 28.0 mmol/L Invalid Interpretation Code 21.0-32.0 [employer] Work Phone: [phone] Creatinine 63.01 mL/min Invalid Interpretation Code [email or web address] Phone: [phone] Creatinine 0.85 mg/dL Invalid Interpretation Code 0.55-1.02 [email or web address] Phone: [phone] eGFR (non-black) 85 mL/min/{1.73_m2} Invalid Interpretation Code >60 [employer] Work Phone: [phone] eGFR (non-black) 70 mL/min/{1.73_m2} Invalid Interpretation Code >60 [employer] Work Phone: [phone] Glucose mass conc 139 mg/dL High 70-110 [employer] Work Phone: [phone] Potassium molar conc 3.7 mmol/L Invalid Interpretation Code 3.5-5.1 [employer] Work Phone: [phone] Sodium 137 mmol/L Invalid Interpretation Code 136-145 [employer] Work Phone: [phone] Urea nitrogen 15 mg/dL Invalid Interpretation Code 7-18 [facility] Work Phone: Vital Signs Date Time Vital Sign Value Performing Clinician Facility 08-17-2024 11:34-0400 Body mass index (BMI) [Ratio] 28.86 kg/m2 Sandra Clutter PA-C Work Phone: [facility] 08-17-2024 11:34-0400 Body weight 81.1 kg Sandra Clutter PA-C Work Phone: [facility] 08-17-2024 11:34-0400 Diastolic blood pressure 60 mm[Hg] Sandra Clutter PA-C Work Phone: [facility] 08-17-2024 11:34-0400 Heart rate 75 /min Sandra Clutter PA-C Work Phone: [facility] 08-17-2024 11:34-0400 Respiratory rate 20 /min Sandra Clutter PA-C Work Phone: [facility] 08-17-2024 11:34-0400 SaO2% (BldA) [Mass fraction] 98 % Sandra Clutter PA-C Work Phone: [facility] 08-17-2024 11:34-0400 Systolic blood pressure 100 mm[Hg] Sandra Clutter PA-C Work Phone: [facility] 08-03-2024 07:52-0400 Body mass index (BMI) [Ratio] 29.7 kg/m2 Xochitl Castrejon MD Work Phone: [facility] 08-03-2024 07:52-0400 Body weight 83.46 kg Xochitl Castrejon MD Work Phone: [facility] 08-03-2024 07:52-0400 Diastolic blood pressure 62 mm[Hg] Xochitl Castrejon MD Work Phone: [facility] 08-03-2024 07:52-0400 Heart rate 84 /min Xochitl Castrejon MD Work Phone: [facility] 08-03-2024 07:52-0400 Respiratory rate 16 /min Xochitl Castrejon MD Work Phone: [facility] 08-03-2024 07:52-0400 Systolic blood pressure 100 mm[Hg] Xochitl Castrejon MD Work Phone: [facility] 06-22-2024 09:48-0400 Body height 167.6 cm Jono Lopez MD Work Phone: [facility] 06-22-2024 09:48-0400 Body mass index (BMI) [Ratio] 30.35 kg/m2 Joon Lopez MD Work Phone: [facility] 06-22-2024 09:48-0400 Body temperature 97.11 [degF] Joon Lopez MD Work Phone: [facility] 06-22-2024 09:48-0400 Body weight 85.3 kg Joon Lopez MD Work Phone: [facility] 06-22-2024 09:48-0400 Diastolic blood pressure 56 mm[Hg] Joon Lopez MD Work Phone: [facility] 06-22-2024 09:48-0400 Heart rate 86 /min Joon Lopez MD Work Phone: [facility] 06-22-2024 09:48-0400 Respiratory rate 16 /min Joon Lopez MD Work Phone: [facility] 06-22-2024 09:48-0400 SaO2% (BldA) [Mass fraction] 91 % Joon Lopez MD Work Phone: [facility] 06-22-2024 09:48-0400 Systolic blood pressure 110 mm[Hg] Joon Lopez MD Work Phone: [facility] 06-01-2024 17:02-0400 Body mass index (BMI) [Ratio] 30.78 kg/m2 Clarisse Joyce APRN.[employer]OR Work Phone: [facility] 06-01-2024 17:02-0400 Body temperature 97.81 [degF] Clarisse Joyce APRN.[employer]OR Work Phone: [facility] 06-01-2024 17:02-0400 Body weight 86.5 kg Clarisse Joyce RN ELIGIBILITY.[employer] Work Phone: [facility] 06-01-2024 17:02-0400 Diastolic blood pressure 76 mm[Hg] Clarisse Joyce RN ELIGIBILITY.[employer] Work Phone: [facility] 06-01-2024 17:02-0400 Heart rate 86 /min Clarisse Joyce RN ELIGIBILITY.[employer] Work Phone: [facility] 06-01-2024 17:02-0400 Respiratory rate 21 /min Clarisse Joyce RN ELIGIBILITY.[employer]OR Work Phone: [facility] 06-01-2024 17:02-0400 SaO2% (BldA) [Mass fraction] 98 % Clarisse Joyce RN EL[employer]IBILITY.[employer]OR Work Phone: [facility] 06-01-2024 17:02-0400 Systolic blood pressure 150 mm[Hg] Clarisse Joyce RN ELIGIBILITY.[employer]OR Work Phone: [facility] 05-11-2024 14:40-0400 Body mass index (BMI) [Ratio] 31.89 kg/m2 Joon Lopez MD Work Phone: [facility] 05-11-2024 14:40-0400 Body weight 89.63 kg Joon Lopez MD Work Phone: [facility] 05-11-2024 14:40-0400 Diastolic blood pressure 72 mm[Hg] Joon Lopez MD Work Phone: [facility] 05-11-2024 14:40-0400 Heart rate 76 /min Joon Lopez MD Work Phone: [facility] 05-11-2024 14:40-0400 Respiratory rate 18 /min Joon Lopez MD Work Phone: [facility] 05-11-2024 14:40-0400 Systolic blood pressure 138 mm[Hg] Joon Lopez MD Work Phone: [facility] 03-22-2024 08:43-0400 Diastolic blood pressure 72 mm[Hg] Whitney Jose RN ELIGIBILITY.[employer] Work Phone: [facility] 03-22-2024 08:43-0400 Systolic blood pressure 138 mm[Hg] Whitney Jose RN ELIGIBILITY.[employer] Work Phone: [facility] 03-22-2024 08:41-0400 Body mass index (BMI) [Ratio] 31.31 kg/m2 Whitney Jose RN EL[employer]IBILITY.[employer] Work Phone: [facility] 03-22-2024 08:41-0400 Body weight 88 kg Whitney Jose RN ELIGIBILITY.[employer]OR Work Phone: [facility] 03-22-2024 08:41-0400 Heart rate 90 /min Whitney Jose RN EL[employer]IBILITY.[employer]OR Work Phone: [facility] 03-22-2024 08:41-0400 SaO2% (BldA) [Mass fraction] 96 % Whitney Jose RN EL[employer]IBILITY.[employer] Work Phone: [facility] 02-03-2024 10:27-0400 Body mass index (BMI) [Ratio] 30.67 kg/m2 Joon Lopez MD Work Phone: [facility] 02-03-2024 10:27-0400 Body weight 86.18 kg Joon Lopez MD Work Phone: [facility] 02-03-2024 10:27-0400 Diastolic blood pressure 72 mm[Hg] Joon Lopez MD Work Phone: [facility] 02-03-2024 10:27-0400 Heart rate 84 /min Joon Lopez MD Work Phone: [facility] 02-03-2024 10:27-0400 Respiratory rate 16 /min Joon Lopez MD Work Phone: [facility] 02-03-2024 10:27-0400 Systolic blood pressure 124 mm[Hg] Joon Lopez MD Work Phone: [facility] 01-28-2024 23:52-0400 Blood Pressure Cuff Size NIDAL CHOUJAA DO [facility] 01-28-2024 23:52-0400 Blood Pressure Location NIDAL CHOUJAA DO [facility] 01-28-2024 23:52-0400 Blood Pressure Method NIDAL CHOUJAA DO [facility] 01-28-2024 23:52-0400 Diastolic Blood Pressure Non-Invasive 75 mm[Hg] NIDAL CHOUJAA DO [facility] 01-28-2024 23:52-0400 Heart rate 65 /min NIDAL CHOUJAA DO [facility] 01-28-2024 23:52-0400 Respiratory rate 18 /min NIDAL CHOUJAA DO [facility] 01-28-2024 23:52-0400 Systolic Blood Pressure Non-Invasive 155 mm[Hg] NIDAL CHOUJAA DO [facility] 01-28-2024 23:00-0400 Systolic Blood Pressure Non-Invasive 157 mm[Hg] NIDAL CHOUJAA DO [facility] 01-28-2024 22:06-0400 Diastolic Blood Pressure Non-Invasive 84 mm[Hg] NIDAL CHOUJAA DO [facility] 01-28-2024 22:06-0400 Heart rate 84 /min NIDAL CHOUJAA DO [facility] 01-28-2024 22:06-0400 Respiratory rate 18 /min NIDAL CHOUJAA DO [facility] 01-28-2024 22:06-0400 Systolic Blood Pressure Non-Invasive 177 mm[Hg] NIDAL CHOUJAA DO [facility] 01-28-2024 20:26-0400 Blood Pressure Cuff Size NIDAL CHOUJAA DO [facility] 01-28-2024 20:26-0400 Blood Pressure Location NIDAL CHOUJAA DO [facility] 01-28-2024 20:26-0400 Blood Pressure Method NIDAL CHOUJAA DO [facility] 01-28-2024 20:25-0400 Blood Pressure Cuff Size NIDAL CHOUJAA DO [facility] 01-28-2024 20:25-0400 Blood Pressure Location NIDAL CHOUJAA DO [facility] 01-28-2024 20:25-0400 Blood Pressure Method NIDAL CHOUJAA DO [facility] 01-28-2024 20:25-0400 Body temperature 98.06 [degF] NIDAL CHOUJAA DO [facility] 01-28-2024 20:25-0400 Heart rate 83 /min NIDAL CHOUJAA DO [facility] 01-05-2024 14:45-0400 Body mass index (BMI) [Ratio] 31.31 kg/m2 Joon Lopez MD Work Phone: [facility] 01-05-2024 14:45-0400 Body temperature 98.49 [degF] Joon Lopez MD Work Phone: [facility] 01-05-2024 14:45-0400 Body weight 88 kg Joon Lopez MD Work Phone: [facility] 01-05-2024 14:45-0400 Diastolic blood pressure 68 mm[Hg] Joon Lopez MD Work Phone: [facility] 01-05-2024 14:45-0400 Heart rate 60 /min Joon Lopez MD Work Phone: [facility] 01-05-2024 14:45-0400 Systolic blood pressure 120 mm[Hg] Joon Lopez MD Work Phone: [facility] 09-23-2023 09:05-0500 Body weight 89.81 kg Whitney Jose RN ELIGIBILITY.[employer] Work Phone: [facility] 09-23-2023 09:05-0500 Diastolic blood pressure 70 mm[Hg] Whitney Jose RN ELIGIBILITY.[employer]OR Work Phone: [facility] 09-23-2023 09:05-0500 Heart rate 83 /min Whitney Jose RN ELIGIBILITY.[employer]OR Work Phone: [facility] 09-23-2023 09:05-0500 SaO2% (BldA) [Mass fraction] 97 % Whitney Jose RN ELIGIBILITY.[employer]OR Work Phone: [facility] 09-23-2023 09:05-0500 Systolic blood pressure 128 mm[Hg] Whitney Jose RN ELIGIBILITY.[employer]OR Work Phone: [facility] 05-12-2023 08:54-0400 Body weight 87.54 kg Whitney Jose RN ELIGIBILITY.[employer]OR Work Phone: [facility] 05-12-2023 08:54-0400 Diastolic blood pressure 78 mm[Hg] Whitney Jose RN ELIGIBILITY.[employer]OR Work Phone: [facility] 05-12-2023 08:54-0400 Heart rate 82 /min Whitney Jose RN ELIGIBILITY.[employer]OR Work Phone: [facility] 05-12-2023 08:54-0400 SaO2% (BldA) [Mass fraction] 98 % Whitney Jose RN ELIGIBILITY.[employer]OR Work Phone: [facility] 05-12-2023 08:54-0400 Systolic blood pressure 134 mm[Hg] Whitney Jose RN ELIGIBILITY.[employer]OR Work Phone: [facility] 04-16-2023 07:09-0400 Body weight 88.45 kg Triniallen Millers RN ELIGIBILITY.[employer] Work Phone: [facility] 04-16-2023 07:09-0400 Diastolic blood pressure 80 mm[Hg] Trini Tang RN ELIGIBILITY.[employer] Work Phone: [facility] 04-16-2023 07:09-0400 Heart rate 80 /min Trini Tang RN ELIGIBILITY.[employer] Work Phone: [facility] 04-16-2023 07:09-0400 Respiratory rate 16 /min Trini Tang RN ELIGIBILITY.[employer] Work Phone: [facility] 04-16-2023 07:09-0400 SaO2% (BldA) [Mass fraction] 98 % Trini Tang RN EL[employer]IBILITY.[employer] Work Phone: [facility] 04-16-2023 07:09-0400 Systolic blood pressure 120 mm[Hg] Trini Tang RN ELIGIBILITY.[employer]NER Work Phone: [facility] 04-03-2023 12:28-0400 Body temperature 96.4 [degF] Joon Lopez MD Work Phone: [facility] 04-03-2023 12:28-0400 Body weight 91.63 kg Joon Lopez MD Work Phone: [facility] 04-03-2023 12:28-0400 Diastolic blood pressure 83 mm[Hg] Joon Lopez MD Work Phone: [facility] 04-03-2023 12:28-0400 Heart rate 86 /min Joon Loepz MD Work Phone: [facility] 04-03-2023 12:28-0400 Respiratory rate 18 /min Joon Lopez MD Work Phone: [facility] 04-03-2023 12:28-0400 SaO2% (BldA) [Mass fraction] 96 % Joon Lopez MD Work Phone: [facility] 04-03-2023 12:28-0400 Systolic blood pressure 149 mm[Hg] Joon Lopez MD Work Phone: [facility] 03-31-2023 09:09-0400 Body weight 91.17 kg Whitney Jose RN ELIGIBILITY.[employer]OR Work Phone: [facility] 03-31-2023 09:09-0400 Diastolic blood pressure 72 mm[Hg] Whitney Jose RN ELIGIBILITY.[employer]OR Work Phone: [facility] 03-31-2023 09:09-0400 Heart rate 81 /min Whitney Jose RN ELIGIBILITY.[employer]OR Work Phone: [facility] 03-31-2023 09:09-0400 SaO2% (BldA) [Mass fraction] 97 % Whitney Jose RN ELIGIBILITY.[employer]OR Work Phone: [facility] 03-31-2023 09:09-0400 Systolic blood pressure 128 mm[Hg] Whitney Jose RN ELIGIBILITY.[employer]OR Work Phone: [facility] 12-26-2022 11:33-0500 Body temperature 96.91 [degF] Joon Lopez MD Work Phone: [facility] 12-26-2022 11:33-0500 Body weight 90.27 kg Joon Lopez MD Work Phone: [facility] 12-26-2022 11:33-0500 Diastolic blood pressure 78 mm[Hg] Joon Lopez MD Work Phone: [facility] 12-26-2022 11:33-0500 Heart rate 91 /min Joon Lopez MD Work Phone: [facility] 12-26-2022 11:33-0500 Respiratory rate 18 /min Joon Lopez MD Work Phone: [facility] 12-26-2022 11:33-0500 SaO2% (BldA) [Mass fraction] 97 % Joon Lopez MD Work Phone: [facility] 12-26-2022 11:33-0500 Systolic blood pressure 124 mm[Hg] Joon Lopez MD Work Phone: [facility] 12-04-2022 10:57-0500 Body temperature 98.4 [degF] Daron Singh MD Work Phone: [facility] 12-04-2022 10:57-0500 Body weight 92.81 kg Daron Singh MD Work Phone: [facility] 12-04-2022 10:57-0500 Diastolic blood pressure 78 mm[Hg] Daron Singh MD Work Phone: [facility] 12-04-2022 10:57-0500 Heart rate 90 /min Daron Singh MD Work Phone: [facility] 12-04-2022 10:57-0500 Respiratory rate 18 /min Daron Singh MD Work Phone: [facility] 12-04-2022 10:57-0500 SaO2% (BldA) [Mass fraction] 97 % Daron Singh MD Work Phone: [facility] 12-04-2022 10:57-0500 Systolic blood pressure 142 mm[Hg] Daron Singh MD Work Phone: [facility] 07-01-2022 11:03-0400 Body weight 88 kg Joon Lopez MD Work Phone: [facility] 07-01-2022 11:03-0400 Diastolic blood pressure 82 mm[Hg] Joon Lopez MD Work Phone: [facility] 07-01-2022 11:03-0400 Heart rate 76 /min Joon Lopez MD Work Phone: [facility] 07-01-2022 11:03-0400 SaO2% (BldA) [Mass fraction] 96 % Joon Lopez MD Work Phone: [facility] 07-01-2022 11:03-0400 Systolic blood pressure 142 mm[Hg] Joon Lopez MD Work Phone: [facility] 05-06-2022 08:43-0400 Body weight 88.45 kg Xi Haagen RN ELIGIBILITY.[employer]OR Work Phone: [facility] 05-06-2022 08:43-0400 Diastolic blood pressure 80 mm[Hg] Xi Haagen RN ELIGIBILITY.[employer]OR Work Phone: [facility] 05-06-2022 08:43-0400 Heart rate 79 /min Xi Haagen RN ELIGIBILITY.[employer]OR Work Phone: [facility] 05-06-2022 08:43-0400 Respiratory rate 18 /min Xi Haagen RN ELIGIBILITY.[employer]OR Work Phone: [facility] 05-06-2022 08:43-0400 SaO2% (BldA) [Mass fraction] 96 % Xi Haagen RN ELIGIBILITY.[employer]OR Work Phone: [facility] 05-06-2022 08:43-0400 Systolic blood pressure 134 mm[Hg] Xi Haagen RN ELIGIBILITY.[employer]OR Work Phone: [facility] 03-25-2022 16:03-0400 Diastolic blood pressure 70 mm[Hg] Joon Lopez MD Work Phone: [facility] 03-25-2022 16:03-0400 Systolic blood pressure 114 mm[Hg] Joon Lopez MD Work Phone: [facility] 03-25-2022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 without complication, without long-term current use of insulin (HCC) Expected: 09/03/2023 (Approximate), Expires: 11/03/2023 [facility] Work Phone: Comment on above: Expected: 09/03/2023 (Approximate), Expires: 11/03/2023 Start: 09-03-2023 End: 11-03-2023 CBC panel - Blood by Automated count CBC Lab Routine Primary hypertension Expected: 09/03/2023 (Approximate), Expires: 11/03/2023 [facility] Work Phone: Comment on above: Expected: 09/03/2023 (Approximate), Expires: 11/03/2023 Start: 09-03-2023 End: 11-03-2023 Comprehensive metabolic 2000 panel - Serum or Plasma COMP METABOLIC PANEL Lab Routine Controlled type 2 diabetes mellitus without complication, without long-term current use of insulin (HCC) Primary hypertension Expected: 09/03/2023 (Approximate), Expires: 11/03/2023 [facility] Work Phone: Comment on above: Expected: 09/03/2023 (Approximate), Expires: 11/03/2023 Start: 09-03-2023 End: 11-03-2023 Hemoglobin A1c in Blood HGB A1C Lab Routine Controlled type 2 diabetes mellitus without complication, without long-term current use of insulin (HCC) Expected: 09/03/2023 (Approximate), Expires: 11/03/2023 [facility] Work Phone: Comment on above: Expected: 09/03/2023 (Approximate), Expires: 11/03/2023 Start: 09-03-2023 End: 11-03-2023 Lipid 1996 panel - Serum or Plasma LIPID PANEL BASIC Lab Routine Primary hypertension Mixed hyperlipidemia Expected: 09/03/2023 (Approximate), Expires: 11/03/2023 [facility] Work Phone: Comment on above: Expected: 09/03/2023 (Approximate), Expires: 11/03/2023 Start: 07-01-2023 ANNUAL PCP TEAM AUGER MACHINE OFFBEARER JR DISEASE VISIT ANNUAL PCP TEAM CHRONIC DISEASE VISIT [facility] Start: 07-01-2023 COVID-19 VACCINE (#1) COVID-19 VACCI NE (#1) [facility] Comment on above: Postponed from 08/28 (Declined at this time) Start: 06-26-2023 Influenza vaccination [facility] Start: 05-06-2023 ANNUAL PCP TEAM AUGER MACHINE OFFBEARER JR DISEASE VISIT ANNUAL PCP TEAM CHRONIC DISEASE VISIT [facility] Start: 04-24-2023 Influenza vaccination INFLUENZA (#1) [facility] Comment on above: Postponed from 06/26 (Declined at this time) Start: 03-31-2023 End: 05-31-2023 Comprehensive metabolic 2000 panel - Serum or Plasma [facility] Work Phone: Comment on above: Expected: 03/31/2023 , Expires: 05/31/2023 Start: 03-31-2023 End: 05-31-2023 Lipid 1996 panel - Serum or Plasma [facility] Work Phone: Comment on above: Expected: 03/31/2023 , Expires: 05/31/2023 Start: 03-25-2023 Adult depression screening assessment DEPRESSION SCREENING [facility] Start: 03-25-2023 ANNUAL PCP TEAM AUGER MACHINE OFFBEARER JR DISEASE VISIT ANNUAL PCP TEAM CHRONIC DISEASE VISIT [facility] Start: 03-25-2023 BP CONTROLLED (<130/80) BP CONTROLLE D (<130/80) [facility] Start: 03-25-2023 SHINGRIX VACCINE (1 of 2) SHINGRIX VACCINE (1 of 2) [facility] Comment on above: Postponed from 02/25 (Declined at this time) Start: 01-27-2023 Glaucoma screening Dilated Retinal E xam [facility] Start: 01-27-2023 Hepatitis C antibody , confirmatory test DILATED RETINAL EXAM [facility] Start: 01-26-2023 End: 03-28-2023 ALBUMIN/CREAT RATIO RND UR ALBUMIN/CREAT RATIO RND UR Lab Routine Controlled type 2 diabetes mellitus without complication, without long-term current use of insulin (HCC) Expected: 01/26/2023 (Approximate), Expires: 03/28/2023 [facility] Work Phone: Comment on above: Expected: 01/26/2023 (Approximate), Expires: 03/28/2023 Start: 01-26-2023 End: 03-28-2023 CBC panel - Blood by Automated count CBC Lab Routine Primary hypertension Expected: 01/26/2023 (Approximate), Expires: 03/28/2023 [facility] Work Phone: Comment on above: Expected: 01/26/2023 (Approximate), Expires: 03/28/2023 Start: 01-26-2023 End: 03-28-2023 Comprehensive metabolic 2000 panel - Serum or Plasma COMP METABOLIC PANEL Lab Routine Controlled type 2 diabetes mellitus without complication, without long-term current use of insulin (HCC) Primary hypertension Expected: 01/26/2023 (Approximate), Expires: 03/28/2023 [facility] Work Phone: Comment on above: Expected: 01/26/2023 (Approximate), Expires: 03/28/2023 Start: 01-26-2023 End: 03-28-2023 Hemoglobin A1c in Blood HGB A1C Lab Routine Controlled type 2 diabetes mellitus without complication, without long-term current use of insulin (HCC) Expected: 01/26/2023 (Approximate), Expires: 03/28/2023 [facility] Work Phone: Comment on above: Expected: 01/26/2023 (Approximate), Expires: 03/28/2023 Start: 01-26-2023 End: 03-28-2023 Lipid 1996 panel - Serum or Plasma LIPID PANEL BASIC Lab Routine Mixed hyperlipidemia Expected: 01/26/2023 (Approximate), Expires: 03/28/2023 [facility] Work Phone: Comment on above: Expected: 01/26/2023 (Approximate), Expires: 03/28/2023 Start: 01-17-2023 ANNUAL PCP TEAM AUGER MACHINE OFFBEARER JR DISEASE VISIT ANNUAL PCP TEAM CHRONIC DISEASE VISIT [facility] Start: 01-17-2023 BP CONTROLLED (<130/80) BP CONTROLLE D (<130/80) [facility] Start: 01-17-2023 SPIROMETRY SPIROMETRY [facility] Comment on above: Postponed from 02/25 (Declined at this time) Start: 11-22-2022 Urine microalbumin profile DTAP,TDAP,TD (2 - Td or Tdap) [facility] Comment on above: Postponed from 10/03 (Declined at this time) Start: 10-26-2022 ADVANCE DIRECTIVE DISCUSSION ADVANCE DIRECTIVE DISCUSSION [facility] Start: 10-26-2022 DEPRESSION ASSESSMENT DEPRESSION ASS ESSMENT [facility] Start: 10-16-2022 Hepatitis B screening URINE AL BUMIN:CREATININE RATIO [facility] Start: 10-16-2022 Hepatitis B surface antibody level LDL CHOLESTEROL [facility] Start: 09-24-2022 Hemoglobin A1c/Hemoglobin.total in Blood HBA1C [facility] Start: 09-24-2022 PNEUMOCOCCAL: 65+ (2 - PCV) PNEUMOCOCCAL: 65+ (2 - PCV) [facility] Comment on above: Postponed from 10/01 (Declined at this time) Start: 06-26-2022 Influenza vaccination C [facility] Start: 04-16-2022 Hemoglobin A1c/Hemoglobin.total in Blood HBA1C [facility] Start: 04-07-2022 COVID-19 VACCINE (#1) COVID-19 VACCI NE (#1) [facility] Comment on above: Postponed from 02/25 (Declined at this time) Start: 04-07-2022 COVID-19 VACCINE (1) COVID-19 VACCIN E (1) [facility] Comment on above: Postponed from 02/25 (Declined at this time) Start: 03-25-2022 End: 05-25-2022 Basic metabolic 2000 panel - Serum or Plasma BASIC METABOLIC PNL Lab Routine Controlled type 2 diabetes mellitus without complication, without long-term current use of insulin (HCC) Expected: 03/25/2022, Expires: 05/25/2022 [facility] Work Phone: Comment on above: Expected: 03/25/2022 , Expires: 05/25/2022 Start: 03-25-2022 End: 05-25-2022 CBC panel - Blood by Automated count CBC Lab Routine Encounter for long-term current use of medication Expected: 03/25/2022, Expires: 05/25/2022 [facility] Work Phone: Comment on above: Expected: 03/25/2022 , Expires: 05/25/2022 Start: 03-11-2022 3 comp foot exam completed DIABETIC FOOT EXAM [facility] Start: 03-11-2022 Adult depression screening assessment DEPRESSION SCREENING [facility] Start: 03-11-2022 Diabetic foot examination Diabetic Foot Exam [facility] Start: 03-11-2022 SHINGRIX VACCINE (1 of 2) SHINGRIX VACCINE (1 of 2) [facility] Comment on above: Postponed from 02/25 (Declined at this time) Start: 10-26-2021 DEPRESSION ASSESSMENT DEPRESSION ASS ESSMENT [facility] Start: 10-03-2021 Urine microalbumin profile [facility] Start: 08-04-2019 COLORECTAL CANCER SCREENING COLORECTAL CANCER SCREENING [facility] Start: 08-04-2019 FECAL OCCULT BLOOD FECAL OCCULT BLOO D [facility] Start: 02-15-2018 End: 02-15-2018 Appointment Appointment [facility] Work Phone: Start: 01-26-2018 End: 07-30-2017 *Hepatic Function Panel *Hepatic Function Panel [facility] Work Phone: Start: 01-26-2018 End: 07-30-2017 Lipid panel [AGGREGATE] *Lipid Profile CC PCP [facility] Work Phone: Start: 11-03-2017 End: 11-03-2017 Appointment Appointment [facility] Work Phone: Start: 10-12-2017 End: 05-11-2017 Echo tthrc r-t 2d w/wom-mode compl spec&colr d Echo Complete with Color Flow [facility] Work Phone: Start: 08-10-2017 End: 08-10-2017 Urine culture, bacteria Urine Culture [facility] Work Phone: Start: 07-27-2017 End: 07-27-2017 DJN DJN [facility] Work Phone: Start: 07-27-2017 End: 07-27-2017 Follow Up Appt 6 months Follow Up Appt 6 months [facility] Work Phone: Start: 07-27-2017 End: 07-27-2017 Follow Up BP Check Follow Up BP Check [facility] Work Phone: Start: 07-20-2017 End: 07-27-2017 *Hepatic Function Panel *Hepatic Function Panel [facility] Work Phone: Start: 07-20-2017 End: 07-27-2017 Lipid panel [AGGREGATE] *Lipid Profile CC PCP [facility] Work Phone: Start: 05-11-2017 End: 05-11-2017 DMB DMB [facility] Work Phone: Start: 05-11-2017 End: 05-11-2017 Follow Up Appt 6 months Follow Up Appt 6 months [facility] Work Phone: Start: 05-01-2017 End: 05-05-2017 INR Coag RelTime (PPP) *PT/INR - Standing Order [facility] Work Phone: Start: 03-12-2017 End: 03-12-2017 CSM [facility] Work Phone: Start: 03-12-2017 End: 03-12-2017 Follow Up Appt 2 months Follow Up Appt 2 months [facility] Work Phone: Start: 03-12-2017 End: 03-12-2017 Pulmonary Function Test - complete Pulmonary Function Test - complete [facility] Work Phone: Start: 02-04-2017 End: 02-04-2017 Ecg routine ecg w/least 12 lds w/i&r EKG (In office) [facility] Work Phone: Start: 01-30-2017 End: 01-19-2017 *Hepatic Function Panel *Hepatic Function Panel [facility] Work Phone: Start: 01-30-2017 End: 01-19-2017 Lipid panel [AGGREGATE] *Lipid Profile CC PCP [facility] Work Phone: Start: 01-26-2017 End: 01-19-2017 *BMP *BMP [facility] Work Phone: Start: 01-12-2017 End: 01-12-2017 Cardioversion Cardioversion [facility] Work Phone: Start: 01-12-2017 End: 07-16-2017 DJN DJN [facility] Work Phone: Start: 01-12-2017 End: 07-16-2017 Follow Up Appt 6 months Follow Up Appt 6 months [facility] [employer] Work Phone: Start: 01-05-2017 End: 01-16-2017 Complete sleep workup (PSG,CPAP as indicated) & Follow up Complete sleep workup (PSG,CPAP as indicated) & Follow up [facility] Work Phone: Start: 01-05-2017 End: 01-16-2017 DMB DMB [facility] Work Phone: Start: 01-05-2017 End: 01-16-2017 Follow Up Appt 2 months Follow Up Appt 2 months [facility] Work Phone: Start: 01-05-2017 End: 01-16-2017 Pulmonary Function Test - complete Pulmonary Function Test - complete [facility] Work Phone: Start: 01-05-2017 End: 01-16-2017 Pulmonary stress test/simple Pulmonary stress testing; simple (eg, 6-minute walk) [facility] Work Phone: Start: 10-01-2013 Pneumococcal Vaccine : 65+ (2 - PCV) Pneumococcal Vaccine: 65+ (2 - PCV) [facility] Start: 10-01-2013 Pneumococcal Vaccine : 65+ (2 of 2 - PCV) Pneumococcal Vaccine: 65+ (2 of 2 - PCV) [facility] Start: 10-01-2013 PNEUMOCOCCAL: 65+ (2 - PCV) PNEUMOCOCCAL: 65+ (2 - PCV) [facility] Start: 2007 Hepatitis B Vaccine (1 of 3 - Risk 3-dose series) Hepatitis B Vaccine (1 of 3 - Risk 3-dose series) [facility] Start: 2007 RSV Vaccine (1 - 1-d ose 60+ series) RSV Vaccine (1 - 1-dose 60+ series) [facility] Start: 1997 SHINGRIX VACCINE (1 of 2) SHINGRIX VACCINE (1 of 2) [facility] Start: 02-26-1992 COLOGUARD (FIT-DNA) COLOGUARD (FIT-D NA) [facility] Start: 02-26-1992 Colonoscopy COLONOSCOPY [facility] Start: 02-26-[address] [facility] Start: 02-26-1992 SIGMOIDOSCOPY SIGMOIDOSCOPY [facility] Start: 1965 Anxiety Screening Anxiety Screening [facility] Start: 1965 BP CONTROLLED (<130/80) BP CONTROLLE D (<130/80) [facility] Start: 1965 Depression Screening Depression Scre ening [facility] Start: 1965 SPIROMETRY SPIROMETRY [facility] Start: 02-26-1952 COVID-19 VACCINE (#1) COVID-19 VACCI NE (#1) [facility] Start: 1947 COVID-19 VACCINE (#1) COVID-19 VACCI NE (#1) [facility] Bacteria identified in Urine by Culture URINE CULTURE Microbiology Routine Hallucinations, unspecified Generalized weakness Ordered: 06/01/2024 [facility] Work Phone: Comment on above: Ordered: 06/01/2024 End: 04-16-2025 BD DXA TRABECULAR BONE SCORE (TBS) BD DXA TRABECULAR BONE SCORE (TBS) Radiology Routine Asymptomatic postmenopausal state Screening for osteoporosis Closed fracture of elbow, unspecified laterality, sequela 1 Occurrences starting 03/18/2024 until 04/16/2025 [facility] Comment on above: 1 Occurrences starti ng 03/18/2024 until 04/16/2025 End: 04-16-2025 DXA Skeletal system.axial Views for bone density DXA-AXIAL SKELETON Radiology Routine Asymptomatic postmenopausal state Screening for osteoporosis Closed fracture of elbow, unspecified laterality, sequela 1 Occurrences starting 03/18/2024 until 04/16/2025 [facility] Work Phone: Comment on above: 1 Occurrences starti ng 03/18/2024 until 04/16/2025 Hemoglobin.gastroint est inal.lower [Presence] in Stool by Immunoassay FECAL OCCULT BLOOD TEST Lab Routine Colon cancer screening Ordered: 12/26/2022 [facility] Work Phone: Comment on above: Ordered: 12/26/2022 Hzv zoster vacc recombinant adjuvanted im njx ZOSTER VACCINE, RECOMBINANT (SHINGRIX) Immunization/Injection Routine Encounter for immunization 1 Occurrences starting 04/16/2023 [facility] Work Phone: Comment on above: 1 Occurrences starti ng 04/16/2023 End: 09-02-2025 MR Brain WO contrast MRI BRAIN W QUANT WO IVCON Radiology Routine Cognitive impairment, mild, so stated 1 Occurrences starting 08/03/2024 until 09/02/2025 [facility] Comment on above: 1 Occurrences starti ng 08/03/2024 until 09/02/2025 End: 09-02-2025 MR Unspecified body region 3D post processing MRI 3D POST PROCESSING Radiology Routine Cognitive impairment, mild, so stated 1 Occurrences starting 08/03/2024 until 09/02/2025 [facility] Comment on above: 1 Occurrences starti ng 08/03/2024 until 09/02/2025 Patient Education [facility] Work Phone: End: 05-15-2024 SPIROMETRY - BASELINE AND POST DILATOR SPIROMETRY - BASELINE AND POST DILATOR PFT Routine Mild intermittent asthma without complication 1 Occurrences starting 04/16/2023 until 05/15/2024 [facility] Work Phone: Comment on above: 1 Occurrences starti ng 04/16/2023 until 05/15/2024 UA DIP, URINE (POC) UA DIP, URIN E (POC) Lab Routine Urinary incontinence without sensory awareness Dysuria Nocturia more than twice per night Urinary urgency Ordered: 01/05/2024 [facility] Work Phone: Comment on above: Ordered: 01/05/2024 [facility] Immunizations Immunization Date Immunization Notes Care Provider [facility] 08-19-2019 influenza virus vacc ine, unspecified formulation Joon Lopez MD Work Phone: [facility] 10-01-2012 pneumococcal polysaccharide vaccine, 23 valent Joon Lopez MD Work Phone: [facility] 10-03-2011 tetanus toxoid, redu fe diphtheria toxoid, and acellular pertussis vaccine, adsorbed Joon Lopez MD Work Phone: [facility] Payers Date Payer Category Payer Medicare [employer] TH[employer] MD[employer] HMO [id number] 2021-Present [phone] [place] [id number] [facility] [id number] 2021 Medicare [employer] THP [employer] MDCR HMO [id number] 2021-Present [phone] [id number] [id number] [facility] [id number] 2021 Unknown [id number] 1945 Unknown [id number] Social History Date Type Detail Facility Start: 02-02-2018 End: 07-01-2022 Tobacco smoking status NHIS Never smoked tobacco [facility] Start: 11-01-2021 End: 08-03-2024 Alcohol intake Current non-drinker of alcohol (finding) [facility] Start: 1945 Sex Assigned At Not on file C [facility] Start: 01-07-2022 End: 07-01-2022 Exposure to SARS-CoV-2 (event) Not sure [facility] Start: 02-02-2018 End: 07-01-2022 Tobacco use and exposure Smokeless tobacco non-user [facility] Start: 03-31-2023 End: 04-16-2023 History of Social function [facility] Work Phone: Start: 03-31-2023 End: 04-16-2023 Tobacco use panel [facility] Work Phone: Adult Depression Screening Assessment 0 [facility] Work Phone: Tobacco smoking status No Smokin g Status Entered [facility] Sex Assigned At Female [facility] Start: 08-03-2024 Education 11 [facility] Medical Equipment Procedure Code Equipment Code Equipment Original Text Equipment Identifier Dates [id number], [id number] Start: 10-02-2015 End: 06-22-2023 Comment on above: Test glucose 1 x per day. Dx: 250.00. Insulin use: no Test blood sugar(s) 1 times daily. Dx: Type 2 DM - Controlled E11.9 Insulin: No Pacemaker [employer]visa-04/01/2019 [id number] Start: 04-01-2019 Comment on above: Description: Pacer D ual Mri [employer] Chamber - [id number] Implanted: Qty: 1 on 04/01/2019 by Rodney Freed MD at [facility] Pacemaker Left: Chest [employer] PACER [id number] 05/22/2020 [id number] / [id number] Medical Devices Implanted Type Area Enrobing Machine Corder Device Identifier Shelf Expiration Date Model / Serial / Lot Lead Pace Standard Mdt 5076 - [id number] Implanted: Qty: 1 on 04/01/2019 by Rodney Freed MD at [facility] Lead N/A: Heart [employer] PACER [id number] 01/28/2021 [id number] / [id number] / Lead Pace His Bundle Df1 69cm - [id number] Implanted: Qty: 1 on 04/01/2019 by Rodney Freed MD at [facility] Lead N/A: Heart [employer] PACER [id number] 12/24/2020 [id number] / [id number] / Functional Status Date Assessment Result Facility 01-28-2024 Functional Status Independent [facility] 01-28-2024 Functional Status Standard Safet y ID band on, Allergy Band on, Call device within reach, Bed in low position, Wheels locked, personal items within reach, Visitor at bedside, Safety level maintained [facility] Mental Status Date Assessment Result Facility 01-28-2024 Mental Status Oriented x 4 [facility] 01-28-2024 Mental Status [facility] Clinical Notes 09-29-2005 to 08-17-2024 Sandra Payton PA-C - 08/17/2024 12:18 PM EDTTelephone Encounter - Jamari Maki MA - 08/03/2024 1:47 PM EDTTelephone Encounter - Jamari Maki MA - 08/03/2024 1:47 PM EDT Note Date & Type Note Facility 08-17-2024 Note HNO ID: [id number] Author: SANDRA PAYTON PA-C Service: ? Author Type: Physician Vp Of Customer Experience Strategy Type: Progress Notes Filed: 08/17/2024 12:25 Note Text: This note was created using [employer]. Subjective Keisha Red is a 79 year old female. Patient is a 79-year-old female who is brought by her granddaughter for evaluation of increased urinary frequency as well as mild confusion that the patient has demonstrated over the past 1 day. Granddaughter reports that the patient does have a history of recurrent urinary tract infection and she usually develops mild confusion with onset of same. Patient herself reports no fever, chills, flank pain, dysuria or hematuria. Patient states she is otherwise feeling in good physical health. Review of Systems Genitourinary: Positive for frequency. Negative for dysuria, enuresis, flank pain, hematuria and urgency. Psychiatric/Behavioral: Positive for confusion. All other systems reviewed and are negative. Objective BP 100/60 Pulse 75 Resp 20 Wt 81.1 kg (178 lb 12.7 oz) SpO2 98% BMI 28.86 kg/m? Physical Exam Vitals and nursing note reviewed. Constitutional: Appearance: Normal appearance. She is normal weight. HENT: Head: Normocephalic and atraumatic. Nose: Nose normal. Mouth/Throat: Mouth: Mucous membranes are moist. Pharynx: Oropharynx is clear. Eyes: Extraocular Movements: Extraocular movements intact. Conjunctiva/sclera: Conjunctivae normal. Pupils: Pupils are equal, round, and reactive to light. Cardiovascular: Rate and Rhythm: Normal rate and regular rhythm. Pulses: Normal pulses. Heart sounds: Normal heart sounds. Pulmonary: Effort: Pulmonary effort is normal. Breath sounds: Normal breath sounds. Skin: General: Skin is warm and dry. Capillary Refill: Capillary refill takes less than 2 seconds. Neurological: General: No focal deficit present. Mental Status: She is alert and oriented to person, place, and time. Cranial Nerves: No cranial nerve deficit. Motor: No weakness. Gait: Gait normal. Psychiatric: Mood and Affect: Mood normal. Behavior: Behavior normal. Thought Content: Thought content normal. Judgment: Judgment normal. Assessment and Plan Unremarkable physical exam findings as noted above. Urinalysis shows large leukocyte esterase and nitrite. Nurse advises that the patient did not provide a large enough sample for urine culture to be obtained. Patient was provided with a prescription for Keflex 500 mg and supportive care instructions were discussed. Patient and her granddaughter verbalize excellent understanding of same. CLINICAL IMPRESSION: Acute UTI [facility] 08-17-2024 History of Present illness Narrative This note was created using Pocket [employer]. Subjective Keisha Red is a 79 year old female. Patient is a 79-year-old female who is brought by her granddaughter for evaluation of increased urinary frequency as well as mild confusion that the patient has demonstrated over the past 1 day. Granddaughter reports that the patient does have a history of recurrent urinary tract infection and she usually develops mild confusion with onset of same. Patient herself reports no fever, chills, flank pain, dysuria or hematuria. Patient states she is otherwise feeling in good physical health. Review of Systems Genitourinary: Positive for frequency. Negative for dysuria, enuresis, flank pain, hematuria and urgency. Psychiatric/Behavioral: Positive for confusion. All other systems reviewed and are negative. Objective BP 100/60 Pulse 75 Resp 20 Wt 81.1 kg (178 lb 12.7 oz) SpO2 98% BMI 28.86 kg/m Physical Exam Vitals and nursing note reviewed. Constitutional: Appearance: Normal appearance. She is normal weight. HENT: Head: Normocephalic and atraumatic. Nose: Nose normal. Mouth/Throat: Mouth: Mucous membranes are moist. Pharynx: Oropharynx is clear. Eyes: Extraocular Movements: Extraocular movements intact. Conjunctiva/sclera: Conjunctivae normal. Pupils: Pupils are equal, round, and reactive to light. Cardiovascular: Rate and Rhythm: Normal rate and regular rhythm. Pulses: Normal pulses. Heart sounds: Normal heart sounds. Pulmonary: Effort: Pulmonary effort is normal. Breath sounds: Normal breath sounds. Skin: General: Skin is warm and dry. Capillary Refill: Capillary refill takes less than 2 seconds. Neurological: General: No focal deficit present. Mental Status: She is alert and oriented to person, place, and time. Cranial Nerves: No cranial nerve deficit. Motor: No weakness. Gait: Gait normal. Psychiatric: Mood and Affect: Mood normal. Behavior: Behavior normal. Thought Content: Thought content normal. Judgment: Judgment normal. Assessment and Plan Unremarkable physical exam findings as noted above. Urinalysis shows large leukocyte esterase and nitrite. Nurse advises that the patient did not provide a large enough sample for urine culture to be obtained. Patient was provided with a prescription for Keflex 500 mg and supportive care instructions were discussed. Patient and her granddaughter verbalize excellent understanding of same. CLINICAL IMPRESSION: Acute UTI documented in this encounter [facility] 08-03-2024 Telephone encounter Note Vitamin b12 ordered by Dr. Castrejon and patient had drawn at [facility]. View External Labs - Vit B12,INR, [ID [id number]] Please review and advise. Jamari Maki MA [facility] 08-03-2024 Miscellaneous Notes Vitamin b12 ordered by Dr. Castrejon and patient had drawn at [facility]. View External Labs - Vit B12,INR, [ID [id number]] Please review and advise. Jamari Maki MA documented in this encounter [facility] 08-03-2024 Telephone encounter Note Noted. Thank you! Jamari Maki MA [facility] 08-03-2024 Miscellaneous Notes Noted. Thank you! Jamari Maki MA I have placed the appropriate message to the Pacemaker/MRI safety team via phone encounter to the pool. Phone call to Dian to inform that neither or [facility] do the type of MRI that was ordered. Informed Dian that I will have a support services manager call her to get testing scheduled. Pacemaker card printed from [facility] [employer]. Sent to cindi. Sheridan, can you please call this patient's daughter Dian to schedule the MRI? Jamari Maki MA Daughter (Dian) calls to let provider know that she has spoke with Maddie from [facility] and patients pacemaker is MRI compatible and she could have it done at the [facility] location. Prior Auth is pending. Roopa Edgar RN documented in this encounter [facility] 08-03-2024 Telephone encounter Note I have placed the appropriate message to the Pacemaker/MRI safety team via phone encounter to the pool. [facility] 08-03-2024 Telephone encounter Note Pt came in for a Geriatric consult today. Dr. Castrejon would like a MRI Brain Quant with 3D processing. Patient has a pacemaker. Please advise and contact patients daughter to schedule. Patient has been identified by name and Date of : Yes Patient: Keisha Red Date of : 1945 Provider for this encounter : Dr. Carmelita Lopez MD Reason for call: MRI-Pacemaker Was an appointment scheduled: No Reason for requesting visit (RFV/signs and symptoms/diagnosis) : Geriatrics Person calling: daughter: Dian Return call to: daughter: Dian Call patient at: , it is OK to leave message [phone] (home) [phone] (cell) Payor: [employer] / Plan[facility] / Product Type: HMO / Sheridan Humphries [facility] 08-03-2024 Miscellaneous Notes Pt came in for a Geriatric consult today. Dr. Castrejon would like a MRI Brain Quant with 3D processing. Patient has a pacemaker. Please advise and contact patients daughter to schedule. Patient has been identified by name and Date of : Yes Patient: Keisha Red Date of : 1945 Provider for this encounter : Dr. Carmelita Lopez MD Reason for call: MRI-Pacemaker Was an appointment scheduled: No Reason for requesting visit (RFV/signs and symptoms/diagnosis) : Geriatrics Person calling: daughter: Dian Return call to: daughter: Dian Call patient at: , it is OK to leave message [phone] (home) [phone] (cell) Payor: [employer] / Plan: [facility] HMO / Product Type: HMO / [place] Humphries documented in this encounter [facility] 08-03-2024 Telephone encounter Note Phone call to Dian to inform that neither or [facility] do the type of MRI that was ordered. Informed Dian that I will have a support services manager call her to get testing scheduled. Pacemaker card printed from [facility] [employer]. Sent to cindi. Sheridan, can you please call this patient's daughter Dian to schedule the MRI? Jamari Maki MA [facility] 08-03-2024 Telephone encounter Note Daughter (Dian) calls to let provider know that she has spoke with Maddie from [facility] and patients pacemaker is MRI compatible and she could have it done at the [facility] location. Prior Auth is pending. Roopa Edgar RN [facility] 08-03-2024 Note HNO ID: [id number] Author: XOCHITL CASTREJON MD Service: ? Author Type: Physician Type: Progress Notes Filed: 08/03/2024 17:44 Note Text: [facility] Initial Consult Keisha Red is a 79 year old year old female who comes for Comprehensive Geriatric Assessment. Pt accompanied by: Oldest daughter Ana Maria Caregivers involved in care: daughters Brooke and Ana Maria. HPI: This is a 79-year-old woman with a past medical history of pulmonary hypertension, mild intermittent asthma, sleep apnea, diabetes mellitus type 2, chronic anticoagulation for a flutter, is status post a pacemaker, has back pain from degenerative disc disease. Here to discuss her memory concerns that have been on going for the past one year. She lives by herself and fell, hit her head and that was when her daughters first noticed issues . She has also been very sad, does not feel like she want to go out and do anything, because she thinks that she is burden. Lack of hearing has not helped her either. She does repeat questions, misplaces items . Over the past year she has been having a hard time with walking and balance, without a walker if she walks she tends to move to the left side, and then bumps herself on stuff, she is on oxybutynin and is taking oxycodone for pain management but very few and far between. Any Family History of dementia? Yes, older brother who is 5 years older to her is currently having dementia Are you or your spouse a ? Yes Alzheimer's Questionnaire (Karma 2010) THE CAREGIVER REPORTS THAT THE PATIENT: - Has memory loss - Has worse memory than a few years ago - Repeats questions, statements, or stories in the same day - Forgets appointments or needs caregiver to track events/appointments - Misplaces items more than once a month, or so that s/he cannot find them - Frequently has trouble knowing the date, uses cues like newspaper or calendar more than once a day - Becomes more confused outside the home or when traveling - Has difficulty handling money (e.g., calculating tips or change) - Has trouble handling bills or finances - Has trouble remembering to take medications - Has difficulty driving, or drives in way that concerns the caregiver, or has stopped driving - Has significantly reduced recreational activities - Has trouble finding words other than names - Confuses names of family members or friends THE CAREGIVER DENIES THAT THE PATIENT: - Suspects others are moving/hiding/stealing items when s/he cannot find them - Becomes disoriented in unfamiliar places - Has trouble using appliances - Has difficulty completing household tasks or repairs - Is getting lost in familiar surroundings - Has a decreased sense of direction - Has difficulty recognizing familiar people Alzheimer's Questionnaire score = 18 (21/21 questions answered) Long-term Memory: Difficulty remembering distant events from the past like childhood, previous employment, wedding: NO Behavioral/personality: Withdrawn/Depressed: YES Crying spells: YES Anxious: NO History of aggression: YES History of irritability: YES Apathy:YES Recent changes in weight or appetite: YES Alcohol or Drug use: NO Smoking? NO Sleep: Do you snore loudly (louder than talking or loud enough to be heard through closed doors)? Has a sleep machine but does not want to use it Do you often feel tired, fatigued, or sleepy during daytime? Has a sleep machine but does not want to use it Has anyone observed you stop breathing during your sleep? Has a sleep machine but does not want to use it Are you restless when you sleep at night? Has a sleep machine but does not want to use it Do you have problems falling a sleep? Has a sleep machine but does not want to use it Do you have problems staying a sleep? Has a sleep machine but does not want to use it Psychosis: Hallucinations or delusions: YES sometimes sees her standing in the doorway, he is Suicidal or homicidal ideations: NO Obsessions, compulsions, or hoarding: NO Safety: Does pt know his/her address? YES What would you do if there was a fire? She would get her dog and take off. How would you call for help?911 Does he/she know 911? YES Are there any firearms in the home? NO If yes are they in a secure location? Social History: Primary language: Ivorian Marital Status: Living situation: Home Alone, since 2010 when her Socially engaged? (participates in activities such as clubs, methodist, community center, sports, games, visiting friends/relatives, etc?): NO She used to go out with friends and family, a few times a month. She used to have a group of 4 friends who used to go out but she has not done that for the past 7 months. Caregiver [place] and Stress Are your feeling overwhelmed? NO Do you have concerns about your own health? NO Are you neglecting your o (more content not included)... [facility] 08-03-2024 History of Present illness Narrative [facility] Initial Consult Keisha Red is a 79 year old year old female who comes for Comprehensive Geriatric Assessment. Pt accompanied by: Oldest daughter Ana Maria Caregivers involved in care: daughters Brooke and Ana Maria. HPI: This is a 79-year-old woman with a past medical history of pulmonary hypertension, mild intermittent asthma, sleep apnea, diabetes mellitus type 2, chronic anticoagulation for a flutter, is status post a pacemaker, has back pain from degenerative disc disease. Here to discuss her memory concerns that have been on going for the past one year. She lives by herself and fell, hit her head and that was when her daughters first noticed issues . She has also been very sad, does not feel like she want to go out and do anything, because she thinks that she is burden. Lack of hearing has not helped her either. She does repeat questions, misplaces items . Over the past year she has been having a hard time with walking and balance, without a walker if she walks she tends to move to the left side, and then bumps herself on stuff, she is on oxybutynin and is taking oxycodone for pain management but very few and far between. Any Family History of dementia? Yes, older brother who is 5 years older to her is currently having dementia Are you or your spouse a ? Yes Alzheimer's Questionnaire (Karma 2010) THE CAREGIVER REPORTS THAT THE PATIENT: - Has memory loss - Has worse memory than a few years ago - Repeats questions, statements, or stories in the same day - Forgets appointments or needs caregiver to track events/appointments - Misplaces items more than once a month, or so that s/he cannot find them - Frequently has trouble knowing the date, uses cues like newspaper or calendar more than once a day - Becomes more confused outside the home or when traveling - Has difficulty handling money (e.g., calculating tips or change) - Has trouble handling bills or finances - Has trouble remembering to take medications - Has difficulty driving, or drives in way that concerns the caregiver, or has stopped driving - Has significantly reduced recreational activities - Has trouble finding words other than names - Confuses names of family members or friends THE CAREGIVER DENIES THAT THE PATIENT: - Suspects others are moving/hiding/stealing items when s/he cannot find them - Becomes disoriented in unfamiliar places - Has trouble using appliances - Has difficulty completing household tasks or repairs - Is getting lost in familiar surroundings - Has a decreased sense of direction - Has difficulty recognizing familiar people Alzheimer's Questionnaire score = 18 (21/21 questions answered) Long-term Memory: Difficulty remembering distant events from the past like childhood, previous employment, wedding: NO Behavioral/personality: Withdrawn/Depressed: YES Crying spells: YES Anxious: NO History of aggression: YES History of irritability: YES Apathy:YES Recent changes in weight or appetite: YES Alcohol or Drug use: NO Smoking? NO Sleep: Do you snore loudly (louder than talking or loud enough to be heard through closed doors)? Has a sleep machine but does not want to use it Do you often feel tired, fatigued, or sleepy during daytime? Has a sleep machine but does not want to use it Has anyone observed you stop breathing during your sleep? Has a sleep machine but does not want to use it Are you restless when you sleep at night? Has a sleep machine but does not want to use it Do you have problems falling a sleep? Has a sleep machine but does not want to use it Do you have problems staying a sleep? Has a sleep machine but does not want to use it Psychosis: Hallucinations or delusions: YES sometimes sees her standing in the doorway, he is Suicidal or homicidal ideations: NO Obsessions, compulsions, or hoarding: NO Safety: Does pt know his/her address? YES What would you do if there was a fire? She would get her dog and take off. How would you call for help?911 Does he/she know 911? YES Are there any firearms in the home? NO If yes are they in a secure location? Social History: Primary language: Ivorian Marital Status: Living situation: Home Alone, since 2010 when her Socially engaged? (participates in activities such as clubs, methodist, community center, sports, games, visiting friends/relatives, etc?): NO She used to go out with friends and family, a few times a month. She used to have a group of 4 friends who used to go out but she has not done that for the past 7 months. Caregiver [place] and Stress Are your feeling overwhelmed? NO Do you have concerns about your own health? NO Are you neglecting your own needs? NO Do you have financial concerns? NO Do your fear loss of employment? NO Do you have concerns about verbal/physical abuse? NO Do you feel that you are still capable of taking care of your relative? NO Are you willing to continue being in the caregiver role? NO B-ADLs: (I=independent,A=assistance,D=depen dent) ?Bathing: I, Dressing: I, Toileting: I, Transferring:I, Continence: I, Feeding: I, (Gibbons Index): I-ADLs: Ability to use phone: I, sometimes having a hard time figuring out which calls to take Shopping: I, Cooking: A, she has messed up some recipes has cut down a lot, used to do the big turkey at [facility] where the turkey was spoiled and she baked, it and it was all smelling. Right now she is making pizza, and a few things. She did not burn on leave anything on. Housekeeping: A, she is slacking on that a lot. Used to have a spic and span house. Laundry: I, Transportation:D, Still has car keys, last drove 8 months ago. She got lost, has a flat tire. Medications: {D, daughters are filling the pill boxes and she still forgets how to take the medication. Handle Finances: A. She is still knowing what she needs to give for bills, daughters do the physical part. Family does not think she has the judgement to fully understand her finances. PMHx: PAST MEDICAL HISTORY Diagnosis Date Allergic rhinitis, [...] Right shoulder s/p fall with reduction at [facility] Type II or unspecified type diabetes mellitus without mention of complication, not stated as uncontrolled Unspecified asthma(493.90) Unspecified essential hypertension PSHx: PAST SURGICAL HISTORY Procedure Laterality Date APPENDECTOMY 1970s INCISE FINGER TENDON SHEATH Right 09/25/2020 right middle trigger finger release PACEMAKER 03/31/2019 PAST SURGICAL HISTORY OF Left left middle trigger finger release REVISE MEDIAN N/CARPAL TUNNEL SURG 01/23/2021 Bilateral carpal tunnel release and left middle trigger finger release Home Meds: Prior to Admission medications : Medication oxyCODONE IR (ROXICODONE) 5 mg immediate release tablet, Sig Take by mouth every 8 hours as needed for pain. Managed by Dr. Mora, Pain Management manages, Start Date , End Date , Taking? Yes, Authorizing Provider Provider, [facility] Medication albuterol HFA (PROAIR HFA) 90 mcg/actuation inhaler, Sig Inhale 2 Puffs as instructed every 4 hours as needed for wheezing/shortness of breath. 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), Start Date 05/27/24, End Date , Taking? Yes, Authorizing Provider Whitney Hammond APRN.FRONT DESK MONITOR Medication diclofenac (VOLTAREN ARTHRITIS PAIN) 1 % topical gel, Sig Apply 2 g to affected area four times daily. Takes as needed, Start Date 05/11/24, End Date , Taking? Yes, Authorizing Provider Joon Lopez MD Medication Cholecalciferol, Vitamin D3, 50 mcg (2,000 unit) cap, Sig Take 1 capsule by mouth once daily., Start Date 04/06/24, End Date , Taking? Yes, Authorizing Provider Whitney Hammond APRN.FRONT DESK MONITOR Medication cyanocobalamin (VITAMIN B-12) 1,000 mcg tab, Sig Take 1 tablet by mouth once daily., Start Date 04/06/24, End Date , Taking? Yes, Authorizing Provider Whitney Hammond APRN.FRONT DESK MONITOR Medication atorvastatin (LIPITOR) 10 mg tablet, Sig Take 1 tablet by mouth once daily., Start Date 03/22/24, End Date , Taking? Yes, Authorizing Provider Whitney Hammond APRN.FRONT DESK MONITOR Medication blood sugar diagnostic (BLOOD GLUCOSE TEST) test strip, Sig Test blood sugar(s) 1 times daily. Dx: Type 2 DM - Controlled E11.9 Insulin: No, Start Date 06/22/23, End Date , Taking? Yes, Authorizing Provider Joon Lopez MD Medication fluticasone-vilanterol (BREO ELLIPTA) 100-25 mcg/dose inhaler, Sig Inhale 1 Inhalation as instructed once daily., Start Date 06/29/24, End Date , Taking? , Authorizing Provider Joon Lopez MD Medication nitrofurantoin macrocrystal (MACRODANTIN) 100 mg capsule, Sig Take 100 mg by mouth two times a day., Start Date 05/06/24, End Date , Taking? , Authorizing Provider Provider, [facility] Medication oxybutynin ER (DITROPAN XL) 10 mg 24 hr tablet, Sig Take 1 tablet by mouth every afternoon., Start Date 04/05/24, End Date , Taking? , Authorizing Provider Provider, [facility] Medication warfarin (COUMADIN) 5 mg tablet, Sig Take 1 tablet by mouth once daily., Start Date 05/11/24, End Date , Taking? , Authorizing Provider Joon Lopez MD Medication montelukast (SINGULAIR) 10 mg tablet, Sig Take 10 mg by mouth daily at bedtime., Start Date 03/04/24, End Date , Taking? , Authorizing Provider Provider, [facility] Medication Magnesium Oxide 250 mg magnesium tab, Sig Take 1 tablet by mouth once daily., Start Date 04/06/24, End Date , Taking? , Authorizing Provider Whitney Hammond APRN.FRONT DESK MONITOR Medication gabapentin (NEURONTIN) 300 mg capsule, Sig Take 2 capsules by mouth daily at bedtime AND 1 capsule every morning. Do all this for 180 days., Start Date 03/22/24, End Date 12/16/24, Taking? , Authorizing Provider Whitney Hammond APRN.FRONT DESK MONITOR Medication glimepiride (AMARYL) 2 mg tablet, Sig Take 1 tablet by mouth two times a day with meals., Start Date 03/22/24, End Date , Taking? , Authorizing Provider Whitney Hammond APRN.FRONT DESK MONITOR Medication TENS unit and electrodes cmpk, Sig 1 Each once daily., Start Date 09/10/23, End Date , Taking? , Authorizing Provider Trini Tang APRN.REDEYE GUNNER Medication tens unit electrodes (TENS UNITS ELECTRODES) 2X2 pads, Sig Change pad every month as indicated, Start Date 09/10/23, End Date , Taking? , Authorizing Provider Trini Tang APRN.REDEYE GUNNER Medication triamcinolone acetonide (KENALOG) 0.1 % cream, Sig Apply 1 application to affected area three times daily as needed. For rash on extremities and leg, Start Date 06/22/23, End Date , Taking? , Authorizing Provider Joon Lopez MD Medication Lancets lancets, Sig Test blood sugar(s) 1 times daily. Dx: Type 2 DM - Controlled E11.9 Insulin: No, Start Date 06/22/23, End Date , Taking? , Authorizing Provider Joon Lopez MD Other OTC med/supplements: None Medication Review: - ANY HIGH RISK MEDICATIONS (STOPP CRITERIA): YES ALLERGIES Allergen Reactions Tizanidine Mental Status Change, Other: See Comments Made her feel like in another world. Very dry mouth. Stumbling/falling Amoxicillin Hives Aspirin Hives, shortness of breath Sulfa (Sulfonamide * Hives Review of Systems Difficulty chew/swallow: no Pain: yes Tremor: No Incontinence - During the last 3 months did you leak urine? YES - Type?: mixed incontinence Constipation/Change in bowel habits: NO Vision Other: has some vision issues but does not need glasses Follows with water mechanic:YES Hearing - Hearing aid : Hearing impairment, no hearing aids Falls: .: Falls in the last 12 months: Positive: . If + falls: Physical Exam: General: Well-nourished, kempt Ambulatory: walker Mobility Aid: Walker Head: Normocephalic Eyes: conjunctiva/corneas normal, EOMI Ears: R TM - clear with good landmarks, nl light reflex, L TM - clear with good landmarks, nl light reflex Nose: clear Oropharynx: moist without lesions, has lost majority of her teeth Neck: supple and no adenopathy Cardio: regular rate and rhythm Pulmonary: Lungs clear to auscultation bilaterally Extremities: Extremities normal. No deformities, edema, or skin discoloration. Musculoskeletal: Normal Gait Neuro:Deep Tendon reflexes :2/4 , Both Gait: Unsteadiness: NO Shuffling: no Tremors: NO Slowness: YES Mini-Mental State Exam (MMSE): 27/30 CDR Dementia Scale 1) Subjective Memory Loss: YES 2) Measurable Memory Loss: YES 3) IADLs: yes 4) BADLs: NO Driving Safely: No < 50% 6) Medications: No Level: Depression Screening/Evaluation: GDS: 06/09 No Data Recorded Labs: Reviewed in [facility], remarkable for tsh being normal at 1.4 4 months ago, vitamin b12 was low 5 months ago Brain Imaging:None available today No diagnosis found. Assessment and Plan: I. Medical /Mental Status/Decision Making Capacity 1-Mentation # Subjective memory loss with measurable memory loss with MMSE score of 27 /30 ... Patient does not have functional impairment, with inability to arrange for on medication in the pillboxes, drive, much decreased food cooking. 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 Confounding factors are depression, sleep apnea, decreased hearing, cardiovascular risk factors and possibly some contribution with medications like oxybutynin. She has not been using a sleep machine, was diagnosed 8 to 10 years ago, she was noncompliant and the machine was ultimately repossessed. CDR 1 FAST 5 Patient and family are looking for preservation of function as much as possible Plan: We would like to see make the diagnosis of what type of dementia she has so an MRI with 3D was ordered. She does have a pacemaker so I asked the family to reach out to the crude tester to know if this particular type of pacemaker is okay with an MRI. She will also reach out to her crude tester who monitors her INR because Zoloft is being started today and it probably will offset her normal therapeutic range that she is in. Vitamin B12 and thyroid tests for completion of workup We will address her depression, to see if that would help her want to do more things. We cannot change the possible neurodegenerative process but other things that she can do to help with her cognition is to try to exercise every day, eat right and socialize. Oxybutynin was exchanged for trospium if family will be able to pay for it. It would be a better option for patient. 2-Mobility -- Falls: She has had a few episodes of falling. Etiology is likely multifactorial. Dementia, degenerative disc disease in the back, neuropathy from diabetes and mild dizziness likely from medications. She will benefit from physical therapy but has been refusing adamantly she does not want to go for physical therapy. I think that if she feels better with the Zoloft she might decide to go. Blood pressure tends to be on the lower side, we can make some medication adjustments in the future. Plan Physical therapy in the future 3-Medications and chronic medical conditions Patient has diabetes mellitus which is fairly well-controlled, she has hypertension, hypercholesterolemia Plan I would recommend switching her medications to short acting sulfonylurea urea like glipizide as opposed to the glimepiride. Would like to switch the oxybutynin to trospium Continue reduction in use of oxycodone, she is using more TENS units and lidocaine patches which is a better option. 4- Matters Most - Will discuss in the next visit REFERRALS AND RECOMMENDATIONS 1. Discussed the cognitive benefits of memory exercises and reviewed examples 2. Discussed the cognitive benefits of physical exercise and socialization Xochitl Castrejon MD [place] documented in this encounter [facility] 07-09-2024 Telephone encounter Note Noted [facility] 07-09-2024 Miscellaneous Notes Noted FYI Calling to report, Chris went out to [place] Patient from , she reported a fall that took place yesterday. Walking out of hallway slipped dog urine. She was able to get up on her own, no injury. Liza Santana LPN documented in this encounter [facility] 07-06-2024 Telephone encounter Note FYI Calling to reportChris went out to [place] Patient from , she reported a fall that took place yesterday. Walking out of hallway slipped dog urine. She was able to get up on her own, no injury. Liza Santana LPN [facility] 07-06-2024 Telephone encounter Note PDMP website checked and validated. All prescriptions have been APPROPRIATELY filled. No suspicious activity was identified. 07/06/2024 by Whitney Hammond APRN.CNP [facility] 07-06-2024 Miscellaneous Notes PDMP website checked and validated. All prescriptions have been APPROPRIATELY filled. No suspicious activity was identified. 07/06/2024 by Whitney Hammond APRN.CNP Prescription Refill Information The patient has been identified by name and date of : Yes Caregiver verified no other encounters exist for this prescription request: Yes Caregiver confirmed with patient/requestor that no other refills are due, in the near future, with this provider at this time: Yes The last office visit in the department: 06/22/24 Does the patient have a future office visit with this provider/department: No Requested Prescriptions Pending Prescriptions Disp Refills oxyCODONE IR (ROXICODONE) 5 mg immediate release tablet 28 tablet 0 Sig: Take 1-2 tablets by mouth two times a day as needed for pain for up to 7 days. Carolina Rojo LPN July 05, 2024 1:42 PM Patient called to refill her oxycodone rx; not on current med list. Uses [facility] in [place]. documented in this encounter [facility] 07-05-2024 Telephone encounter Note Prescription Refill Information The patient has been identified by name and date of : Yes Caregiver verified no other encounters exist for this prescription request: Yes Caregiver confirmed with patient/requestor that no other refills are due, in the near future, with this provider at this time: Yes The last office visit in the department: 06/22/24 Does the patient have a future office visit with this provider/department: No Requested Prescriptions Pending Prescriptions Disp Refills oxyCODONE IR (ROXICODONE) 5 mg immediate release tablet 28 tablet 0 Sig: Take 1-2 tablets by mouth two times a day as needed for pain for up to 7 days. Carolina Rojo LPN July 05, 2024 1:42 PM [facility] 07-05-2024 Telephone encounter Note Patient called to refill her oxycodone rx; not on current med list. Uses [facility] [place]. [facility] 06-29-2024 Telephone encounter Note Order faxed to the number listed for the [facility]. Sylwia Chang LPN [facility] 06-29-2024 Miscellaneous Notes Order faxed to the number listed for the [facility]. Sylwia Chang LPN Patient's request for medication is as follows: Requested Prescriptions Signed Prescriptions Disp Refills fluticasone-vilanterol (BREO ELLIPTA) 100-25 mcg/dose inhaler 180 Each 3 Sig: Inhale 1 Inhalation as instructed once daily. Authorizing Provider: JOON LOPEZ Prescription(s) printed as above. Please process accordingly. Mary Jo with [facility] is calling in regards to rx for Symbicort 160-4.5 mg inhaler. Mary Jo reports pt cannot afford Symbicort and the reheater helper does not have a patient assistance program. Mary Jo reports the reheater helper for Breo does have an assistance program and is asking if pcp would prescribe pt Breo inhaler instead. If so Mary Jo is requesting rx be faxed to [phone] Attn: Stacie. Any Peacock LPN documented in this encounter [facility] 06-29-2024 Telephone encounter Note Patient's request for medication is as follows: Requested Prescriptions Signed Prescriptions Disp Refills fluticasone-vilanterol (BREO ELLIPTA) 100-25 mcg/dose inhaler 180 Each 3 Sig: Inhale 1 Inhalation as instructed once daily. Authorizing Provider: JOON LOPEZ Prescription(s) printed as above. Please process accordingly. [facility] 06-28-2024 Telephone encounter Note Mary Jo with [facility] is calling in regards to rx for Symbicort 160-4.5 mg inhaler. Mary Jo reports pt cannot afford Symbicort and the reheater helper does not have a patient assistance program. Mary Jo reports the reheater helper for [employer] does have an assistance program and is asking if pcp would prescribe pt Breo inhaler instead. If so Mary Jo is requesting rx be faxed to [phone] Attn: Mary Jo. Any Peacock LPN [facility] 06-22-2024 Instructions Joon Lopez MD - 06/22/2024 10:56 AM EDT -Discontinue Flexeril to reduce confusion - Discontinue Tylenol to avoid interaction with Coumadin - Stay hydrated by drinking at least 8 cups of fluid per day, including water, juice, and other non-caffeinated beverages - Continue taking your regular medications, including gabapentin (2 at bedtime, 1 every morning) - Use lidocaine patches (4% [id number]) for pain relief, applying for 12 hours and then removing for 12 hours - Consider using a video phone for seniors to help with medication reminders - Consider enrolling in Meals on Wheels or a similar program to ensure you are eating regularly - Reschedule your appointment with Dr. Ariza, a geriatric specialist - Your next appointment with the pain management doctor is on July 12 - Your pacemaker battery replacement is scheduled for July [address] Dumont. Stop Coumadin on the in preparation for this procedure. documented in this encounter [facility] 06-22-2024 Note HNO ID: [id number] Author: JOON LOPEZ MD Service: ? Author Type: Physician Type: Progress Notes Filed: 06/22/2024 11:00 Note Text: This note was created using [employer]. Subjective Keisha Red is a 79 year old female. Patient presents with: Hospital F/U: dehydration c/o right knee goes out on her SUBJECTIVE: Keisha Red is a 79 year old year old lady here today for hospital appointment for review of medical conditions. Was admitted and discharged Thursday. Patient is a 79-year-old female presenting for a follow-up visit after a recent hospitalization. Patient was admitted to [facility] on the for confusion and was discharged on the . She reports that her confusion may have been exacerbated by dehydration and a lack of food intake. She also mentions that she dislikes drinking water but has been trying to stay hydrated by drinking flavored water and orange juice. She has a history of back pain and is currently taking oxycodone as needed for pain management. She also uses a TENS unit and lidocaine patches for pain relief. She has a pacemaker and is scheduled to have the battery replaced on July 04. She is also scheduled to see a new pain management doctor on July 12. 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 Agudelo No date: Dizziness and giddiness No date: Muscle spasm No date: Obesity, unspecified No date: Palpitations 05/03/2023: Pulmonary hypertension (HCC) 12/06/11: Shoulder dislocation Comment: Right shoulder s/p fall with reduction at [facility] No date: Type II or unspecified type diabetes mellitus without mention of complication, not stated as uncontrolled No date: Unspecified asthma(493.90) No date: Unspecified essential hypertension Current Outpatient Medications Medication Sig albuterol HFA (PROAIR HFA) 90 mcg/actuation inhaler Inhale 2 Puffs as instructed every 4 hours as needed for wheezing/shortness of breath. 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 oxybutynin ER (DITROPAN XL) 10 mg 24 hr tablet Take 1 tablet by mouth every afternoon. warfarin (COUMADIN) 5 mg tablet Take 1 tablet by mouth once daily. montelukast (SINGULAIR) 10 mg tablet Take 10 mg by mouth daily at bedtime. diclofenac (VOLTAREN ARTHRITIS PAIN) 1 % topical gel Apply 2 g to affected area four times daily. Takes as needed cyclobenzaprine (FLEXERIL) 5 mg tablet Take 1-2 tablets by mouth two times a day as needed for muscle spasm. lidocaine (LIDODERM) 5 % Apply 1 Patch as directed every 24 hours. Remove patch after 12 hours. Location: Back/ribs Cholecalciferol, Vitamin D3, 50 mcg (2,000 unit) cap Take 1 capsule by mouth once daily. Magnesium Oxide 250 mg magnesium tab Take 1 tablet by mouth once daily. cyanocobalamin (VITAMIN B-12) 1,000 mcg tab Take 1 tablet by mouth once daily. atorvastatin (LIPITOR) 10 mg tablet Take 1 tablet by mouth once daily. gabapentin (NEURONTIN) 300 mg capsule Take 2 capsules by mouth daily at bedtime AND 1 capsule every morning. Do all this for 180 days. glimepiride (AMARYL) 2 mg tablet Take 1 tablet by mouth two times a day with meals. TENS unit and electrodes cmpk 1 Each once daily. tens unit electrodes (TENS UNITS ELECTRODES) 2X2 pads Change pad every month as indicated triamcinolone acetonide (KENALOG) 0.1 % cream Apply 1 application to affected area three times daily as needed. For rash on extremities and leg budesonide-formoterol (SYMBICORT) 160-4.5 mcg/actuation inhaler Inhale 2 Puffs as instructed twice daily. ([facility] pulmonology) blood sugar diagnostic (BLOOD GLUCOSE TEST) test strip Test blood sugar(s) 1 times daily. Dx: Type 2 DM - Controlled E11.9 Insulin: No Lancets lancets Test blood sugar(s) 1 times daily. Dx: Type 2 DM - Controlled E11.9 Insulin: No No current facility-administered medications for this visit. Review of Systems Objective BP 110/56 (BP Site: Right Arm, BP Position: Sitting, BP Cuff Size: Large Adult) Pulse 86 Temp 36.2 ?C (97.1 ?F) Resp 16 Ht 167.6 cm (5' 6 ) Wt 85.3 kg (188 lb 0.8 oz) SpO2 91% BMI 30.35 kg/m? Physical Exam Constitutional: Appearance: Normal appearance. HENT: Head: Normocephalic. Eyes: Conjunctiva/sclera: Conjunctivae normal. Cardiovascular: Rate and Rhythm: Normal rate and regular rhythm. Heart sounds: Normal heart sounds. Pulmonary: Effort: Pulmonary effort is normal. Breath sounds: Normal breath sounds. Musculoskeletal: Right lower leg: No edema. Left lower leg: No edema. Skin: General: Skin is warm and dry (more content not included)... [facility] 06-22-2024 History of Present illness Narrative This note was created using [employer]. Subjective Keisha Red is a 79 year old female. Patient presents with: Hospital F/U: dehydration c/o right knee goes out on her SUBJECTIVE: Keisha Red is a 79 year old year old lady here today for hospital appointment for review of medical conditions. Was admitted and discharged Thursday. Patient is a 79-year-old female presenting for a follow-up visit after a recent hospitalization. Patient was admitted to [facility] on the for confusion and was discharged on the . She reports that her confusion may have been exacerbated by dehydration and a lack of food intake. She also mentions that she dislikes drinking water but has been trying to stay hydrated by drinking flavored water and orange juice. She has a history of back pain and is currently taking oxycodone as needed for pain management. She also uses a TENS unit and lidocaine patches for pain relief. She has a pacemaker and is scheduled to have the battery replaced on July 04. She is also scheduled to see a new pain management doctor on July 12. 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 Agudelo No date: Dizziness and giddiness No date: Muscle spasm No date: Obesity, unspecified No date: Palpitations 05/03/2023: Pulmonary hypertension (HCC) 12/06/11: Shoulder dislocation Comment: Right shoulder s/p fall with reduction at [facility] No date: Type II or unspecified type diabetes mellitus without mention of complication, not stated as uncontrolled No date: Unspecified asthma(493.90) No date: Unspecified essential hypertension Current Outpatient Medications Medication Sig albuterol HFA (PROAIR HFA) 90 mcg/actuation inhaler Inhale 2 Puffs as instructed every 4 hours as needed for wheezing/shortness of breath. 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 oxybutynin ER (DITROPAN XL) 10 mg 24 hr tablet Take 1 tablet by mouth every afternoon. warfarin (COUMADIN) 5 mg tablet Take 1 tablet by mouth once daily. montelukast (SINGULAIR) 10 mg tablet Take 10 mg by mouth daily at bedtime. diclofenac (VOLTAREN ARTHRITIS PAIN) 1 % topical gel Apply 2 g to affected area four times daily. Takes as needed cyclobenzaprine (FLEXERIL) 5 mg tablet Take 1-2 tablets by mouth two times a day as needed for muscle spasm. lidocaine (LIDODERM) 5 % Apply 1 Patch as directed every 24 hours. Remove patch after 12 hours. Location: Back/ribs Cholecalciferol, Vitamin D3, 50 mcg (2,000 unit) cap Take 1 capsule by mouth once daily. Magnesium Oxide 250 mg magnesium tab Take 1 tablet by mouth once daily. cyanocobalamin (VITAMIN B-12) 1,000 mcg tab Take 1 tablet by mouth once daily. atorvastatin (LIPITOR) 10 mg tablet Take 1 tablet by mouth once daily. gabapentin (NEURONTIN) 300 mg capsule Take 2 capsules by mouth daily at bedtime AND 1 capsule every morning. Do all this for 180 days. glimepiride (AMARYL) 2 mg tablet Take 1 tablet by mouth two times a day with meals. TENS unit and electrodes cmpk 1 Each once daily. tens unit electrodes (TENS UNITS ELECTRODES) 2X2 pads Change pad every month as indicated triamcinolone acetonide (KENALOG) 0.1 % cream Apply 1 application to affected area three times daily as needed. For rash on extremities and leg budesonide-formoterol (SYMBICORT) 160-4.5 mcg/actuation inhaler Inhale 2 Puffs as instructed twice daily. ([facility] pulmonology) blood sugar diagnostic (BLOOD GLUCOSE TEST) test strip Test blood sugar(s) 1 times daily. Dx: Type 2 DM - Controlled E11.9 Insulin: No Lancets lancets Test blood sugar(s) 1 times daily. Dx: Type 2 DM - Controlled E11.9 Insulin: No No current facility-administered medications for this visit. Review of Systems Objective BP 110/56 (BP Site: Right Arm, BP Position: Sitting, BP Cuff Size: Large Adult) Pulse 86 Temp 36.2 C (97.1 F) Resp 16 Ht 167.6 cm (5' 6 ) Wt 85.3 kg (188 lb 0.8 oz) SpO2 91% BMI 30.35 kg/m Physical Exam Constitutional: Appearance: Normal appearance. HENT: Head: Normocephalic. Eyes: Conjunctiva/sclera: Conjunctivae normal. Cardiovascular: Rate and Rhythm: Normal rate and regular rhythm. Heart sounds: Normal heart sounds. Pulmonary: Effort: Pulmonary effort is normal. Breath sounds: Normal breath sounds. Musculoskeletal: Right lower leg: No edema. Left lower leg: No edema. Skin: General: Skin is warm and dry. Comments: Healing wounds on arms (skin tears and dog bites) Neurological: General: No focal deficit present. Mental Status: She is alert and oriented to person, place, and time. Psychiatric: Mood and Affect: Mood normal. Behavior: Behavior normal. Thought Content: Thought content normal. Judgment: Judgment normal. Assessment and Plan # Confusion # Memory deficit - Recent hospitalization on the for confusion; INR was 1.4, sodium 138 mmol/L, potassium 3.7 mmol/L, creatinine within normal limits. - Troponins negative, ruling out myocardial infarction. - CT head showed chronic changes, no acute stroke; chest X-ray unremarkable. - Suspected UTI treated with Rocephin 1g IV. - Flexeril discontinued due to potential contribution to confusion. - Discussed importance of hydration and nutrition to prevent further episodes. - Home health services involved; exploring Meals on Wheels and home health aides to assist with medication adherence and nutrition. - Follow-up with Dr. Castrejon, geriatric specialist, to be rescheduled. # Severe low back pain - Pain management with oxycodone without acetaminophen to avoid interference with Coumadin therapy. - Lidocaine 4% patches used for additional pain relief; instructed on proper use (12 hours on, 12 hours off). - Gabapentin regimen reinforced: 2 capsules at bedtime, 1 capsule every morning. - Next pain management appointment with Dr. Mora on July 12. # Controlled type 2 diabetes mellitus without complication, without long-term current use of insulin (HCC) - Condition stable; continue current management. # Pacemaker - Scheduled for pacemaker battery replacement by Dr. Emerson on July 04. - Coumadin to be stopped on June 28 in preparation for the procedure. I spent a total of 37 minutes on the date of the service which included [id number] patient care, completing clinical documentation, obtaining and/or reviewing separately obtained history, performing a medically appropriate examination, counseling and educating the patient/family/caregiver, ordering medications, tests, or procedures, independently interpreting results (not separately reported), and communicating results to the patient/family/caregiver. Joon Lopez MD documented in this encounter [facility] 06-21-2024 Telephone encounter Note Noted. [place] for home health care. [facility] 06-21-2024 Miscellaneous Notes Noted. Okay for home health care. Soren with [facility], nursing called to report he did a resumption of pt and will be seeing pt starting next week. will see 1 time a week for 2 weeks. Dx: disease management education. [facility] took pt off the Flexeril because they thought this may be contributing to her confusion. No call back needed. Mdadie Rojo LPN documented in this encounter [facility] 06-21-2024 Telephone encounter Note Soren with [facility], nursing called to report he did a resumption of pt and will be seeing pt starting next week. will see 1 time a week for 2 weeks. Dx: disease management education. [facility] took pt off the Flexeril because they thought this may be contributing to her confusion. No call back needed. Maddie Rojo LPN [facility] 06-20-2024 Telephone encounter Note So noted. Scheduled adjusted [facility] 06-20-2024 Miscellaneous Notes So noted. Scheduled adjusted Patient called to confirm appointment for 06/22 and then mention that she was discharged from [facility] on Tuesday 06/19 for dehydration. documented in this encounter [facility] 06-20-2024 Telephone encounter Note Patient called to confirm appointment for 06/22 and then mention that she was discharged from [facility] on Tuesday 06/19 for dehydration. [facility] 06-10-2024 Telephone encounter Note Pts daughter called and is notified of providers message and instructions. She voices understanding, and states she will move the Percocet to her house so she can't get into it. She said hopefully we can get her INR under control. Nya De Oliveira RN [facility] 06-10-2024 Miscellaneous Notes Pts daughter called and is notified of providers message and instructions. She voices understanding, and states she will move the Percocet to her house so she can't get into it. She said hopefully we can get her INR under control. Nya De Oliveira RN Written as if for 7 days since new med and will see whether works and whether will need to stay on. Enough to take 4 per day. Can take if 1 4 times daily or some doses 2 pill (see if able to stay at 3 pills per day or less as she has been) The following approved medication requests have been transmitted electronically. Requested Prescriptions Signed Prescriptions Disp Refills oxyCODONE IR (ROXICODONE) 5 mg immediate release tablet 28 tablet 0 Sig: Take 1-2 tablets by mouth two times a day as needed for pain for up to 7 days. Authorizing Provider: JOON LOPEZ MD DaughterBrooke, returned call and given provider's message below. Brooke reports patient is eating normally, they are making sure of that. Reports patient will be off of coumadin this weekend per Dr. Emerson. Brooke would like pcp to send rx for the oxycodone to [facility]. LEFT MESSAGE FOR PATIENT's daughter TO CALL OFFICE. Probably the Tylenol on the Percocet is contributing to elevated INR. If cardiology lowered the dose, it could be adequate to balance out the pain med and lowering pain med might result in INR getting to low, but one option would be to switch to oxycodone if needing to use pain med longer. Avoiding NSAIDs already (or should be) Other issue would be if patient not eating as well due to pain in which case this would be the reason and not just the pain med. See if patient eating normally. Patient's daughter Brooke calls and states that [facility] INR has been high. Today's INR 5.2 which is managed by [facility]. Brooke concerned with the amount of pain medication patient is talking due to her back pain. Patient had take 2 yesterday morning and 1 last night (Percocet). Patient does have an appointment to see pain management on 07/12. Daughter is concerned that pain medication is elevating patient's INR. Daughter wanting to know if there are any other pain medications that will help with pain but will not raise INRs through the roof? If staff cannot reach daughter on her cell phone, please call daughters work number. Please review and advise, Yuko Ordonez RN documented in this encounter [facility] 06-10-2024 Telephone encounter Note Written as if for 7 days since new med and will see whether works and whether will need to stay on. Enough to take 4 per day. Can take if 1 4 times daily or some doses 2 pill (see if able to stay at 3 pills per day or less as she has been) The following approved medication requests have been transmitted electronically. Requested Prescriptions Signed Prescriptions Disp Refills oxyCODONE IR (ROXICODONE) 5 mg immediate release tablet 28 tablet 0 Sig: Take 1-2 tablets by mouth two times a day as needed for pain for up to 7 days. Authorizing Provider: JOON LOPEZ MD [facility] 06-10-2024 Telephone encounter Note Daughter, Brooke, returned call and given provider's message below. Brooke reports patient is eating normally, they are making sure of that. Reports patient will be off of coumadin this weekend per Dr. Emerson. Brooke would like pcp to send rx for the oxycodone to [facility]. [facility] 06-10-2024 Telephone encounter Note LEFT MESSAGE FOR PATIENT's daughter TO CALL OFFICE. [facility] 06-10-2024 Telephone encounter Note Probably the Tylenol on the Percocet is contributing to elevated INR. If cardiology lowered the dose, it could be adequate to balance out the pain med and lowering pain med might result in INR getting to low, but one option would be to switch to oxycodone if needing to use pain med longer. Avoiding NSAIDs already (or should be) Other issue would be if patient not eating as well due to pain in which case this would be the reason and not just the pain med. See if patient eating normally. [facility] 06-10-2024 Telephone encounter Note Patient's daughter Brooke calls and states that [facility] INR has been high. Today's INR 5.2 which is managed by [facility]. Brooke concerned with the amount of pain medication patient is talking due to her back pain. Patient had take 2 yesterday morning and 1 last night (Percocet). Patient does have an appointment to see pain management on 07/12. Daughter is concerned that pain medication is elevating patient's INR. Daughter wanting to know if there are any other pain medications that will help with pain but will not raise INRs through the roof? If staff cannot reach daughter on her cell phone, please call daughters work number. Please review and advise, Yuko Ordonez RN [facility] 06-09-2024 Telephone encounter Note Noted Glad pain getting better. She was able to control pain without Percocet for quite a while. Was tending to get confused so had decided to stop having Percocet on hand. Agree with TENS for pain control (has helped for a long time). Will await progress report. Closing this encounter. New encounter when Soren calls back [facility] 06-09-2024 Miscellaneous Notes Noted Glad pain getting better. She was able to control pain without Percocet for quite a while. Was tending to get confused so had decided to stop having Percocet on hand. Agree with TENS for pain control (has helped for a long time). Will await progress report. Closing this encounter. New encounter when Soren calls back Spoke with Soren with [facility] Soren states that he believes she only stated the Percocet a couple days ago. Daughter had the medication hidden away because was worried she would take too many. He states that pain level was 10/10 at first but then by the end that number came down. Patient has OTC acetaminophen and methocarbamo on hand ( not of list) but the OTC acetaminophen has been causing her INR to go up so crude tester want her to titrate this down. Methocarbamo was on hand but not on list so he has asked daughter to put this away for now. Patient has tens on and medication seems to be helping so thinks she is okay for now. Nurse will be going over tomorrow for another INR and pain will be reassess at that time. Does the Percocet or flexeril help at all for the pain? Soren with [facility] calls to let provider know that patient was seen for an evaluation visit today. Soren will extend nursing services for two more weeks for uncontrolled back pain. Today patient rates the pain a 10/10. Patient has a referral to Dr. Calero but appointment isn't scheduled until 07.12.2024. Reviewed pain medications on order (cyclobenzaprine, percocet, and gabapentin) with Soren. Patient has OTC acetaminophen and methocarbamol on hand which are not on current med list. Soren will remove those medications. Any other recommendations for pain control from provider. Roopa Edgar, RN documented in this encounter [facility] 06-09-2024 Telephone encounter Note Spoke with Soren with [facility] Soren states that he believes she only stated the Percocet a couple days ago. Daughter had the medication hidden away because was worried she would take too many. He states that pain level was 10/10 at first but then by the end that number came down. Patient has OTC acetaminophen and methocarbamo on hand ( not of list) but the OTC acetaminophen has been causing her INR to go up so crude tester want her to titrate this down. Methocarbamo was on hand but not on list so he has asked daughter to put this away for now. Patient has tens on and medication seems to be helping so thinks she is okay for now. Nurse will be going over tomorrow for another INR and pain will be reassess at that time. [facility] 06-08-2024 Telephone encounter Note Does the Percocet or flexeril help at all for the pain? [facility] 06-08-2024 Telephone encounter Note Pt failed to show to geriatric consult. No show letter sent to patient. Jamari Maki MA [facility] 06-08-2024 Miscellaneous Notes Pt failed to show to geriatric consult. No show letter sent to patient. Jamari Maki MA documented in this encounter [facility] 06-08-2024 Telephone encounter Note Soren with [facility] calls to let provider know that patient was seen for an evaluation visit today. Soren will extend nursing services for two more weeks for uncontrolled back pain. Today patient rates the pain a 10/10. Patient has a referral to Dr. Calero but appointment isn't scheduled until 07.12.2024. Reviewed pain medications on order (cyclobenzaprine, percocet, and gabapentin) with Soren. Patient has OTC acetaminophen and methocarbamol on hand which are not on current med list. Soren will remove those medications. Any other recommendations for pain control from provider. oRopa Edgar, VLAD [facility] 06-03-2024 Telephone encounter Note Patient given results and verbalized understanding of instructions given. Carmela Kennedy LPN [facility] 06-03-2024 Miscellaneous Notes Patient given results and verbalized understanding of instructions given. Carmela Kennedy LPN Please notify caregiver that urine culture showed likely contamination. Patient was sent to ER. If patient still having urinary concerns needs to f/u with pcp for recheck. documented in this encounter [facility] 06-03-2024 Telephone encounter Note Please notify caregiver that urine culture showed likely contamination. Patient was sent to ER. If patient still having urinary concerns needs to f/u with pcp for recheck. [facility] Work Phone: 06-02-2024 Telephone encounter Note Soren from [facility] notified of providers message and verbalized understanding. Consult sent to Dr. Hodges's office. [facility] 06-02-2024 Miscellaneous Notes Soren from [facility] notified of providers message and verbalized understanding. Consult sent to Dr. Hodges's office. Ok please process Soren from [facility] calling patient is complaining of more back pain, her TENS unit broke. Family is trying to get another one for her. Daughter was asking for pain management referral, not Dr Agudelo, she was saying Dr Hodges here in [place]. Pending consult, needs diagnosis. Please advise documented in this encounter [facility] 06-02-2024 Telephone encounter Note Ok please process [facility] 06-01-2024 Note HNO ID: [id number] Author: CLARISSE JOYCE APRN.FRONT DESK MONITOR Service: ? Author Type: Nurse Practitioner Type: Progress Notes Filed: 06/01/2024 17:38 Note Text: This note was created using Pocket Tales. Subjective Keisha Red is a 79 year old female. 79 year old female with PMH aflutter, HTN, hyperlipidemia, asthma, RAMESH, DM, DDD presents for complaints of possible UTI Acute onset Started today Per home health nurse she was hallucinating. She had weakness, and almost fell while going out of door prior to arrival Of note, patient was evaluated and admitted to [facility] At that time she was evaluated for falls and found to have a UTI Presents with her son today, with concerns she has UTI again. Denies abdominal pain Denies N/V/D Denies burning, frequency, or urgency Patient denies pain. The history is provided by the patient. No english language learner tutor was used. 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 Agudelo No date: Dizziness and giddiness No date: Muscle spasm No date: Obesity, unspecified No date: Palpitations 05/03/2023: Pulmonary hypertension (HCC) 12/06/11: Shoulder dislocation Comment: Right shoulder s/p fall with reduction at [facility] No date: Type II or unspecified type diabetes mellitus without mention of complication, not stated as uncontrolled No date: Unspecified asthma(493.90) No date: Unspecified essential hypertension PAST SURGICAL HISTORY 1970s: APPENDECTOMY 09/25/2020: INCISE FINGER TENDON SHEATH; Right Comment: right middle trigger finger release 03/31/2019: PACEMAKER No date: PAST SURGICAL HISTORY OF; Left Comment: left middle trigger finger release 01/23/2021: REVISE MEDIAN N/CARPAL TUNNEL SURG Comment: Bilateral carpal tunnel release and left middle trigger finger release ALLERGIES Tizanidine, Amoxicillin, Aspirin, and Sulfa (Sulfonamide Antibiotics) MEDICATIONS albuterol HFA (PROAIR HFA) 90 mcg/actuation inhaler Inhale 2 Puffs as instructed every 4 hours as needed for wheezing/shortness of breath. 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 oxybutynin ER (DITROPAN XL) 10 mg 24 hr tablet Take 1 tablet by mouth every afternoon. warfarin (COUMADIN) 5 mg tablet Take 1 tablet by mouth once daily. montelukast (SINGULAIR) 10 mg tablet Take 10 mg by mouth daily at bedtime. diclofenac (VOLTAREN ARTHRITIS PAIN) 1 % topical gel Apply 2 g to affected area four times daily. Takes as needed cyclobenzaprine (FLEXERIL) 5 mg tablet Take 1-2 tablets by mouth two times a day as needed for muscle spasm. lidocaine (LIDODERM) 5 % Apply 1 Patch as directed every 24 hours. Remove patch after 12 hours. Location: Back/ribs oxyCODONE-acetaminophen (PERCOCET) 5-325 mg tablet Take 1 tablet by mouth two times a day as needed (for severe back pain and foot pain) for up to 30 days. Cholecalciferol, Vitamin D3, 50 mcg (2,000 unit) cap Take 1 capsule by mouth once daily. Magnesium Oxide 250 mg magnesium tab Take 1 tablet by mouth once daily. cyanocobalamin (VITAMIN B-12) 1,000 mcg tab Take 1 tablet by mouth once daily. atorvastatin (LIPITOR) 10 mg tablet Take 1 tablet by mouth once daily. gabapentin (NEURONTIN) 300 mg capsule Take 2 capsules by mouth daily at bedtime AND 1 capsule every morning. Do all this for 180 days. glimepiride (AMARYL) 2 mg tablet Take 1 tablet by mouth two times a day with meals. TENS unit and electrodes cmpk 1 Each once daily. tens unit electrodes (TENS UNITS ELECTRODES) 2X2 pads Change pad every month as indicated triamcinolone acetonide (KENALOG) 0.1 % cream Apply 1 application to affected area three times daily as needed. For rash on extremities and leg budesonide-formoterol (SYMBICORT) 160-4.5 mcg/actuation inhaler Inhale 2 Puffs as instructed twice daily. ([facility] pulmonology) blood sugar diagnostic (BLOOD GLUCOSE TEST) test strip Test blood sugar(s) 1 times daily. Dx: Type 2 DM - Controlled E11.9 Insulin: No Lancets lancets Test blood sugar(s) 1 times daily. Dx: Type 2 DM - Controlled E11.9 Insulin: No FAMILY HISTORY Problem Relation Age of Onset Diabetes Mother Coronary Artery Disease Father Cancer Sister lung Migraines Son other (nephrolithiasis) Son Hypertension Son Migraines Daughter Social History Tobacco Use Smoking status: Never Smokeless tobacco: Never Vaping Use Vaping Use: Never used Substance Use Topics Alcohol use: No Drug use: Never Review of Systems Respiratory: Negative for apnea, cough, choking and chest tightness. Cardiovascular: Negative for chest pain, palpitations (more content not included)... [facility] 06-01-2024 History of Present illness Narrative This note was created using Pocket Tales. Subjective Keisha Red is a 79 year old female. 79 year old female with PMH aflutter, HTN, hyperlipidemia, asthma, RAMESH, DM, DDD presents for complaints of possible UTI Acute onset Started today Per home health nurse she was hallucinating. She had weakness, and almost fell while going out of door prior to arrival Of note, patient was evaluated and admitted to [facility] At that time she was evaluated for falls and found to have a UTI Presents with her son today, with concerns she has UTI again. Denies abdominal pain Denies N/V/D Denies burning, frequency, or urgency Patient denies pain. The history is provided by the patient. No english language learner tutor was used. 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 Agudelo No date: Dizziness and giddiness No date: Muscle spasm No date: Obesity, unspecified No date: Palpitations 05/03/2023: Pulmonary hypertension (HCC) 12/06/11: Shoulder dislocation Comment: Right shoulder s/p fall with reduction at [facility] No date: Type II or unspecified type diabetes mellitus without mention of complication, not stated as uncontrolled No date: Unspecified asthma(493.90) No date: Unspecified essential hypertension PAST SURGICAL HISTORY 1970s: APPENDECTOMY 09/25/2020: INCISE FINGER TENDON SHEATH; Right Comment: right middle trigger finger release 03/31/2019: PACEMAKER No date: PAST SURGICAL HISTORY OF; Left Comment: left middle trigger finger release 01/23/2021: REVISE MEDIAN N/CARPAL TUNNEL SURG Comment: Bilateral carpal tunnel release and left middle trigger finger release ALLERGIES Tizanidine, Amoxicillin, Aspirin, and Sulfa (Sulfonamide Antibiotics) MEDICATIONS albuterol HFA (PROAIR HFA) 90 mcg/actuation inhaler Inhale 2 Puffs as instructed every 4 hours as needed for wheezing/shortness of breath. 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 oxybutynin ER (DITROPAN XL) 10 mg 24 hr tablet Take 1 tablet by mouth every afternoon. warfarin (COUMADIN) 5 mg tablet Take 1 tablet by mouth once daily. montelukast (SINGULAIR) 10 mg tablet Take 10 mg by mouth daily at bedtime. diclofenac (VOLTAREN ARTHRITIS PAIN) 1 % topical gel Apply 2 g to affected area four times daily. Takes as needed cyclobenzaprine (FLEXERIL) 5 mg tablet Take 1-2 tablets by mouth two times a day as needed for muscle spasm. lidocaine (LIDODERM) 5 % Apply 1 Patch as directed every 24 hours. Remove patch after 12 hours. Location: Back/ribs oxyCODONE-acetaminophen (PERCOCET) 5-325 mg tablet Take 1 tablet by mouth two times a day as needed (for severe back pain and foot pain) for up to 30 days. Cholecalciferol, Vitamin D3, 50 mcg (2,000 unit) cap Take 1 capsule by mouth once daily. Magnesium Oxide 250 mg magnesium tab Take 1 tablet by mouth once daily. cyanocobalamin (VITAMIN B-12) 1,000 mcg tab Take 1 tablet by mouth once daily. atorvastatin (LIPITOR) 10 mg tablet Take 1 tablet by mouth once daily. gabapentin (NEURONTIN) 300 mg capsule Take 2 capsules by mouth daily at bedtime AND 1 capsule every morning. Do all this for 180 days. glimepiride (AMARYL) 2 mg tablet Take 1 tablet by mouth two times a day with meals. TENS unit and electrodes cmpk 1 Each once daily. tens unit electrodes (TENS UNITS ELECTRODES) 2X2 pads Change pad every month as indicated triamcinolone acetonide (KENALOG) 0.1 % cream Apply 1 application to affected area three times daily as needed. For rash on extremities and leg budesonide-formoterol (SYMBICORT) 160-4.5 mcg/actuation inhaler Inhale 2 Puffs as instructed twice daily. ([facility] pulmonology) blood sugar diagnostic (BLOOD GLUCOSE TEST) test strip Test blood sugar(s) 1 times daily. Dx: Type 2 DM - Controlled E11.9 Insulin: No Lancets lancets Test blood sugar(s) 1 times daily. Dx: Type 2 DM - Controlled E11.9 Insulin: No FAMILY HISTORY Problem Relation Age of Onset Diabetes Mother Coronary Artery Disease Father Cancer Sister lung Migraines Son other (nephrolithiasis) Son Hypertension Son Migraines Daughter Social History Tobacco Use Smoking status: Never Smokeless tobacco: Never Vaping Use Vaping Use: Never used Substance Use Topics Alcohol use: No Drug use: Never Review of Systems Respiratory: Negative for apnea, cough, choking and chest tightness. Cardiovascular: Negative for chest pain, palpitations and leg swelling. Gastrointestinal: Negative for abdominal pain, diarrhea, nausea and vomiting. Skin: Negative for color change, pallor, rash and wound. Allergic/Immunologic: Negative for environmental allergies, food allergies and immunocompromised state. Neurological: Negative for dizziness, facial asymmetry, light-headedness and headaches. Hematological: Negative for adenopathy. Does not bruise/bleed easily. Psychiatric/Behavioral: Negative for agitation and behavioral problems. Objective BP 150/76 Pulse 86 Temp 36.6 C (97.8 F) Resp 21 Wt 86.5 kg (190 lb 11.2 oz) SpO2 98% BMI 30.78 kg/m Physical Exam Vitals and nursing note reviewed. Constitutional: General: She is not in acute distress. Appearance: Normal appearance. She is normal weight. She is not ill-appearing, toxic-appearing or diaphoretic. Comments: Elderly appearing HENT: Head: Normocephalic and atraumatic. Right Ear: Ear canal and external ear normal. Left Ear: Ear canal and external ear normal. Nose: Nose normal. No congestion or rhinorrhea. Mouth/Throat: Mouth: Mucous membranes are moist. Pharynx: No oropharyngeal exudate or posterior oropharyngeal erythema. Eyes: General: Right eye: No discharge. Left eye: No discharge. Extraocular Movements: Extraocular movements intact. Conjunctiva/sclera: Conjunctivae normal. Pupils: Pupils are equal, round, and reactive to light. Cardiovascular: Rate and Rhythm: Normal rate and regular rhythm. Pulses: Normal pulses. Heart sounds: Normal heart sounds. No murmur heard. No friction rub. Pulmonary: Effort: Pulmonary effort is normal. No respiratory distress. Breath sounds: Normal breath sounds. No stridor. No wheezing, rhonchi or rales. Chest: Chest wall: No tenderness. Abdominal: General: Abdomen is flat. There is no distension. Palpations: Abdomen is soft. There is no mass. Tenderness: There is no abdominal tenderness. There is no right CVA tenderness, left CVA tenderness, guarding or rebound. Hernia: No hernia is present. Musculoskeletal: General: No swelling, tenderness, deformity or signs of injury. Normal range of motion. Cervical back: Normal range of motion and neck supple. No rigidity. Right lower leg: No edema. Left lower leg: No edema. Comments: Walking with walker Lymphadenopathy: Cervical: No cervical adenopathy. Skin: General: Skin is warm and dry. Capillary Refill: Capillary refill takes less than 2 seconds. Coloration: Skin is not jaundiced or pale. Findings: No bruising, erythema, lesion or rash. Neurological: General: No focal deficit present. Mental Status: She is alert and oriented to person, place, and time. Cranial Nerves: No cranial nerve deficit. Sensory: No sensory deficit. Motor: No weakness. Coordination: Coordination normal. Gait: Gait normal. Psychiatric: Mood and Affect: Mood normal. Behavior: Behavior normal. Thought Content: Thought content normal. Judgment: Judgment normal. Assessment and Plan ASSESSMENT/PLAN: 1. Hallucinations, unspecified - ICD9: 780.1, ICD10: R44.3 (primary diagnosis) Acute onset today Chris, home health staff, noted patient to hallucinate. Patient denies Son states that patient almost fell walking out door Urine dip trace leuks No blood and no nitrates Discussed with son that I am not persuaded her sx related directly to UTI Sent to ED for further evaluation - UA DIP, URINE (POC) - URINE CULTURE 2. Generalized weakness - ICD9: 780.79, ICD10: R53.1 Acute onset today Chris, home health staff, noted patient to hallucinate. Patient denies Son states that patient almost fell walking out door Urine dip trace leuks No blood and no nitrates Discussed with son that I am not persuaded her sx related directly to UTI Sent to ED for further evaluation - URINE CULTURE Clarisse Joyce APRN.FRONT DESK MONITOR documented in this encounter [facility] 06-01-2024 Telephone encounter Note Soren from [facility] calling patient is complaining of more back pain, her TENS unit broke. Family is trying to get another one for her. Daughter was asking for pain management referral, not Dr Agudelo, she was saying Dr Hodges here in [place]. Pending consult, needs diagnosis. Please advise [facility] 05-27-2024 Telephone encounter Note Prescription Refill Information The patient has been identified by name and date of : Yes Caregiver verified no other encounters exist for this prescription request: Yes Caregiver confirmed with patient/requestor that no other refills are due, in the near future, with this provider at this time: Yes The last office visit in the department: 05/11/24 Does the patient have a future office visit with this provider/department: Yes 06/08/24 Requested Prescriptions Pending Prescriptions Disp Refills albuterol HFA (PROAIR HFA) 90 mcg/actuation inhaler 1 Each 11 Sig: Inhale 2 Puffs as instructed every 4 hours as needed for wheezing/shortness of breath. 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 She is using her inhaler more due to the weather and therefore, per pharmacy, she has no more refills. Taniya De Leon May 27, 2024 11:19 AM [facility] 05-27-2024 Miscellaneous Notes Prescription Refill Information The patient has been identified by name and date of : Yes Caregiver verified no other encounters exist for this prescription request: Yes Caregiver confirmed with patient/requestor that no other refills are due, in the near future, with this provider at this time: Yes The last office visit in the department: 05/11/24 Does the patient have a future office visit with this provider/department: Yes 06/08/24 Requested Prescriptions Pending Prescriptions Disp Refills albuterol HFA (PROAIR HFA) 90 mcg/actuation inhaler 1 Each 11 Sig: Inhale 2 Puffs as instructed every 4 hours as needed for wheezing/shortness of breath. 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 She is using her inhaler more due to the weather and therefore, per pharmacy, she has no more refills. Taniya De Leon May 27, 2024 11:19 AM documented in this encounter [facility] 05-12-2024 Telephone encounter Note Images from the original note were not included. Prior authorization approved Payer: [employer] [phone] CaseId:[id number];Status:Approved;Rev iew Type:Prior Auth;Coverage Start Date:04/27/2024;Coverage End Date:05/12/2025; Approval Details Authorized from April 27, 2024 to May 12, 2025 Electronic appeal: Not supported View History Medication Being Authorized cyclobenzaprine (FLEXERIL) 5 mg tablet Take 1-2 tablets by mouth two times a day as needed for muscle spasm. Dispense: 40 tablet Refills: 1 Start: 05/11/2024 Class: Normal This order has been released to its destination. To be filled at: [facility] [id number] - [place] [address] [address] - [phone] Pharmacy notified. [facility] 05-12-2024 Miscellaneous Notes Images from the original note were not included. Prior authorization approved Payer: [employer] [phone] CaseId:[id number];Status:Approved;Rev iew Type:Prior Auth;Coverage Start Date:04/27/2024;Coverage End Date:05/12/2025; Approval Details Authorized from April 27, 2024 to May 12, 2025 Electronic appeal: Not supported View History Medication Being Authorized cyclobenzaprine (FLEXERIL) 5 mg tablet Take 1-2 tablets by mouth two times a day as needed for muscle spasm. Dispense: 40 tablet Refills: 1 Start: 05/11/2024 Class: Normal This order has been released to its destination. To be filled at: [facility] [id number] - [place] [address] [address] - [phone] Pharmacy notified. documented in this encounter [facility] 05-11-2024 Telephone encounter Note Agreeable to POC [facility] 05-11-2024 Miscellaneous Notes Agreeable to POC Starr PT with [facility] calling with plan of care for patient. Physical Therapy will be seeing patient 2 times per week for 4 weeks for lower extremity strength, transfer and gait training, balance and fall prevention. No call back needed if PCP agreeable. Ira Peralta RN documented in this encounter [facility] 05-11-2024 Telephone encounter Note Starr, PT with [facility] calling with plan of care for patient. Physical Therapy will be seeing patient 2 times per week for 4 weeks for lower extremity strength, transfer and gait training, balance and fall prevention. No call back needed if PCP agreeable. Ira Peralta RN [facility] 05-11-2024 Telephone encounter Note Noted, agree. [facility] 05-11-2024 Miscellaneous Notes Noted, agree. Steffi VILA calling from [facility] to report plan of care for patient and occupational therapy will visit patient 1 time a week for 5 weeks. Occupational therapy will work with patient on safety and IAdls. No call back needed. Yuko Ordonez RN documented in this encounter [facility] 05-11-2024 History of Present illness Narrative Chief Complaint Patient presents with: Hospital Follow Up HPI Keisha Red is a 79 year old female who presents here today for a Hospital follow up. Pt here today for a [facility] follow up. Here with daughter, Ana Maria. Pt presented to [facility] ED on 05/04/24 with symptoms of confusion per family, recent fall and return secondary to concern for self care ability. Pt was admitted and discharged on 05/07/24. Questions about medication refills for pain. Has previously had Percocet from this office but Hospital gave her short term Rx due to severe pain from her fall. Pt prefers Percocet as this works for her daughter asking about other options. Pt is getting HH/PT through [facility] out to her home. Just started yesterday. Uro - Follows with Urology, takes Ditropan XL 10 mg once daily. Treated UTI with Macrobid 100 mg bid for 5 days. [facility] Report: HPI - General General Date of Admission: 05/04/24 Date of Service: 05/04/24 Chief Complaint: Confused per family, fall recently, return secondary to concernfor self care ability. HPI Narrative The patient is a 79 y/o F w/ PMHx: Chronic Thrombocytopenia, PAF/Flutter s/p ablation, Obesity, Asthma, Allergic Rhinitis, HTN, HLD, Hx complete HB s/p pacemaker, RAMESH, CKD stage III unclear subtype, Diabetes mellitus type II, Hx Frequent Complicated UTIs w/ persistent history of bilateral hydroureteronephrosis with previous history of distal ureteral stricture following with Dr. Samaniego with most recent intervention 12/2023 with cystoscopy with right ureteral stent placement 01/22/24 and unfortunately continued right hydronephrosis on repeat imaging with appropriate urine output and planned ongoing outpatient follow-up, recent ED evaluation earlier in the day at approximately 1519 with history of unfortunate fall with head injury and back discomfort noted to been on the gravel driveway stepping into a depression unfortunately leading to her falling backwards with no loss of consciousness butsince then some mid back discomfort extending over into the posterior right chest wall with a mild headache and bleeding from the occiput secondary to the fall onto the rocks prompting evaluation at that time with appropriate hemoglobin, INR 1.9, urinalysis noted to be turbid with occult blood 250, leukocyte Estrace 500, negative nitrite, urine RBC and a BCs greater than 100 although urine squamous epithelial cells unfortunately high 10-25 with 3+ urine bacteria however this was repeated and similarly even with appropriate squamous epithelial cells was still significant, CT of the brain with mild soft tissue swelling of the scalp posterior to the parietal lobes without any associated skull fracture or intracranial bleeding, CT cervical spine with no evidence for any acute fracture or subluxation, CT chest with no acute cardiopulmonary pathology and no evidence of any acute rib fractures, CT lumbar spine with no evidence of any acute fracture or subluxation with chronic findings discharged to home on cephalexin 5 mg p.o. every 8 x 7 days planned as well as Percocet small quantity for discomfort who now represents to the [facility] ED later in the evening on 05/04/24 secondary to family concern about inability for patient to becared for at home as no one can be with her tonight or tomorrow with unchanged cognition per EMS but family is worried about recurrent bleeding from the laceration to the posterior scalp prompting them to bring her back in. Althoughpatient per family has been confused in the emergency room she is alert and oriented to herself and recent events. EMS did report that she was at her baseline but has some chronic confusion. Patient notes that she has a constant dull aching throb in her right rib laterally as well as to her back cervical through lumbar worse with movement and even with turning in the bed. She does report still throbbing mild posterior headache but it is improving with no lightand sound sensitivity. Current evaluation includes T99, heart rate 64, BP 160/83, respiratory rate 18, 98% room air. Recent previous ED evaluation with CBC with WBC 9.2, hemoglobin 15.1, MCV 93.2, platelet 128 with increased neutrophils with lymphopenia, INR 1.9, BMP with sodium 135, BUN/creatinine 12/1.0, GFR 57, glucose 168, UA evaluation as noted above. Urine culture pending from recent ED evaluation prior. In the ED upon re-evaluation patient ministered Brickeys 1 tab p.o. x 1 and IV Rocephin 1 g x 1. RAD/Chest 1 View (Portable) IMPRESSION: No acute cardiopulmonary pathology Electronically Signed: Souleymane Mclaughlin MD at 22:48 EDT 05/07/24 Discharge: Diagnosis Discharge Diagnosis (1) Fall: Status: Acute Code(s): W19.XXXA - Unspecified fall, initial encounter (2) Acute cystitis: Status: Acute Code(s): N30.00 - Acute cystitis without hematuria Plan Acute Metabolic Encephalopathy * likely 2/2 to post concussion. Patient appears stable at this time. UTI: * on CTX * h/o right hydronephrosis with right ureteral stent * UCx showing presumptive E. coli, bella-sensitive * Will discharge with nitrofurantoin Recent mechanical fall with posterior scalp laceration * CT the brain with no acute findings, CT cervical spine with no acute findings, * Would is well approximated with ED glue. * Wound appears to be intact. Patient did sustain some muscle tenderness throughout her paraspinal muscles post fall. Supportive management. * Patient had stepped in to have a depression in the driveway and fell backwards hitting her head. Patient had been notably feeling weak before that so that may have been precipitated by an underlying urinary tract infection. * PT OT evaluate and treat * CM spoke with family, interested in SNF. However, the patient does not want to go to a retirement facility and is open to home health care. Case management discussed with the family. TEREZA * Unclear etiology but her creatinine was creeping upwards during the course of this hospitalization. * Patient did receive IV fluids on the 12th and that her creatinine is improved today. No additional workup at this time. Chronic conditions: * Diabetes mellitus type II with chronic neuropathy: Hold oral home regimen, ADA diet, accu checks w/ ISS, continue chronic home gabapentin regimen. * Hypertension: BP upon presentation above goal however patient with recent fall and discomfort; however, not on any hypertensive regimen unfortunately potentially related with previous recent falls with hypotension but uncertain. Will continue to monitor and add back regimen if felt necessary. In the interim we will have IV hydralazine as needed. * Hyperlipidemia: We will continue patient on statin therapy. * Chronic Kidney Disease Stage III, * PAF/flutter: Status post previous ablation, not on any rate or rhythm agent but clarifying, holding Coumadin given recent fall, resume once appropriate. * History complete heart block: Status post pacemaker placement. * Obesity: Weight loss and lifestyle changes encouraged. * Chronic asthma with allergic rhinitis: We will temporally hold home inhalers in the interim placed on ATC budesonide therapy, PRN albuterol, HOB, IS parameters, continue patient home montelukast regimen. * Chronic thrombocytopenia, unclear specific etiology: Admission platelets from previous ED evaluation earlier in the day 128, similar to baseline, continue to trend. * RAMESH: CPAP nightly. New acetaminophen 500 mg Tablet 1,000 mg PO Q8 PRN (Reason: fever or pain) Qty: 0 0RF nitrofurantoin macrocrystal 100 mg capsule 100 mg PO BID 5 Days Qty: 10 0RF Rx Instructions: must administer with a meal/food Discontinued metformin 500 mg tablet extended release 24 hr 500 mg PO BID Taking Percocet one yesterday and one today. Feels needs one now Hurts mostly right ribs from the fall. Not so bad with head wound. Noted crust on scalp not ready to Past medical history, appointments, medications, allergies reviewed. Previous Medical History PAST MEDICAL HISTORY Diagnosis Date Allergic rhinitis, [...] Right shoulder s/p fall with reduction at [facility] Type II or unspecified type diabetes mellitus without mention of complication, not stated as uncontrolled Unspecified asthma(493.90) Unspecified essential hypertension Previous Surgical History PAST SURGICAL HISTORY Procedure Laterality Date APPENDECTOMY 1970s INCISE FINGER TENDON SHEATH Right 09/25/2020 right middle trigger finger release PACEMAKER 03/31/2019 PAST SURGICAL HISTORY OF Left left middle trigger finger release REVISE MEDIAN N/CARPAL TUNNEL SURG 01/23/2021 Bilateral carpal tunnel release and left middle trigger finger release Family History FAMILY HISTORY Problem Relation Age of Onset Diabetes Mother Coronary Artery Disease Father Cancer Sister lung Migraines Son other (nephrolithiasis) Son Hypertension Son Migraines Daughter Patient Allergies ALLERGIES Allergen Reactions Tizanidine Mental Status Change, Other: See Comments Made her feel like in another world. Very dry mouth. Stumbling/falling Amoxicillin Hives Aspirin Hives, shortness of breath Sulfa (Sulfonamide * Hives Current Outpatient Medications Medication Sig nitrofurantoin macrocrystal (MACRODANTIN) 100 mg capsule Take 100 mg by mouth two times a day. oxybutynin ER (DITROPAN XL) 10 mg 24 hr tablet Take 1 tablet by mouth every afternoon. montelukast (SINGULAIR) 10 mg tablet Take 10 mg by mouth daily at bedtime. Cholecalciferol, Vitamin D3, 50 mcg (2,000 unit) cap Take 1 capsule by mouth once daily. Magnesium Oxide 250 mg magnesium tab Take 1 tablet by mouth once daily. cyanocobalamin (VITAMIN B-12) 1,000 mcg tab Take 1 tablet by mouth once daily. albuterol HFA (PROAIR HFA) 90 mcg/actuation inhaler Inhale 2 Puffs as instructed every 4 hours as needed for wheezing/shortness of breath. 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 gabapentin (NEURONTIN) 300 mg capsule Take 2 capsules by mouth daily at bedtime AND 1 capsule every morning. Do all this for 180 days. glimepiride (AMARYL) 2 mg tablet Take 1 tablet by mouth two times a day with meals. TENS unit and electrodes cmpk 1 Each once daily. tens unit electrodes (TENS UNITS ELECTRODES) 2X2 pads Change pad every month as indicated triamcinolone acetonide (KENALOG) 0.1 % cream Apply 1 application to affected area three times daily as needed. For rash on extremities and leg budesonide-formoterol (SYMBICORT) 160-4.5 mcg/actuation inhaler Inhale 2 Puffs as instructed twice daily. ([facility] pulmonology) blood sugar diagnostic (BLOOD GLUCOSE TEST) test strip Test blood sugar(s) 1 times daily. Dx: Type 2 DM - Controlled E11.9 Insulin: No Lancets lancets Test blood sugar(s) 1 times daily. Dx: Type 2 DM - Controlled E11.9 Insulin: No warfarin (COUMADIN) 5 mg tablet Take 1 tablet by mouth once daily. diclofenac (VOLTAREN ARTHRITIS PAIN) 1 % topical gel Apply 2 g to affected area four times daily. Takes as needed No current facility-administered medications for this visit. Social History Social History Tobacco Use Smoking status: Never Smokeless tobacco: Never Vaping Use Vaping Use: Never used Substance Use Topics Alcohol use: No Drug use: Never Review of Symptoms REVIEW OF SYSTEMS See HPI EXAM: BP 138/72 (BP Site: Left Arm, BP Position: Sitting, BP Cuff Size: Regular Adult) Pulse 76 Resp 18 Wt 89.6 kg (197 lb 9.6 oz) BMI 31.89 kg/m Skin: Skin color, texture, turgor normal, no suspicious rashes or lesions. Head: Normocephalic, no masses, lesions, tenderness or abnormalities. Neck: Supple, no adenopathy; thyroid symmetric, normal size, no bruits. Lungs: Lungs clear to auscultation. No wheezing, rhonchi, rales.. Extremities: No deformities, edema, skin discoloration, clubbing or cyanosis. Good capillary refill. . Health Maintenance List Spirometry Never done Shingrix Vaccine(1 of 2) Never done DTaP,Tdap,Td Vaccine(2 - Td or Tdap) due on 10/03/2021 Diabetic Foot Exam due on 03/11/2022 BP Controlled (<130/80) due on 09/25/2023 Advance Directive Discussion due on 10/26/2023 Behavioral Health Screening Never done RSV Vaccine(1 - 1-dose 60+ series) due on 09/23/2024 Covid-19 Vaccine( - 2022-24 season) due on 09/23/2024 Pneumococcal Vaccine: 65+(2 of 2 - PCV) due on 01/04/2025 Influenza Vaccine(1) due on 06/26/2024 HbA1C due on 09/22/2024 Urine Albumin:Creatinine Ratio due on 09/23/2024 LDL Cholesterol due on 09/23/2024 Dilated Retinal Exam due on 01/10/2025 Annual PCP Team Chronic Disease Visit due on 03/22/2025 Bone Density Screening Completed Mammogram Screening Discontinued Colorectal Cancer Screening Discontinued Hepatitis C Screening Discontinued Data reviewed As noted in HPI. Encounter Diagnosis ICD-10-CM 1. Rib pain on right side R07.81 oxyCODONE-acetaminophen (PERCOCET) 5-325 mg tablet Okay percocet as needed for severe pain 2. Laceration of scalp, sequela S01.01XS Top of head toward the right--with bruise and healing crust. 3. Acute cystitis without hematuria N30.00 Finishing up the antibiotic. 4. Severe low back pain M54.50 oxyCODONE-acetaminophen (PERCOCET) 5-325 mg tablet Chronic back pain with occasional episodes severe back pain when needs Percocet.Sporadic episodes are infrequent.Needs to have med on hand to treat prn 5. DDD (degenerative disc disease), lumbar M51.36 oxyCODONE-acetaminophen (PERCOCET) 5-325 mg tablet 6. Acute pain of left knee M25.562 diclofenac (VOLTAREN ARTHRITIS PAIN) 1 % topical gel Rule out meniscal tear based on history and tenderness medial joint line. Uses topical as needed for flare ups 7. Sprain of left knee, unspecified ligament, initial encounter S83.92XA diclofenac (VOLTAREN ARTHRITIS PAIN) 1 % topical gel Treat as needed 8. Cognitive impairment R41.89 CONSULT TO GERIATRICS 9. Memory deficit R41.3 CONSULT TO GERIATRICS Above issues addressed with patient. Patient involved in shared decision making for management of medical issues. History and medications reviewed. Epic updated as needed Refills and/or prescriptions taken care of and meds adjusted as indicated after reviewed history, exam and labs. Health Maintenance reviewed. Updated record and/or ordered tests as recorded. Encouraged on efforts at healthy diet and regular exercise and adequate sleep. Lidocaine patches had helped at [facility]. Will see if affordable. Discussed can get OTC 4% patches. Avoid too much pain med I spent a total of 35 minutes on the date of the service which included [id number] patient care, completing clinical documentation, obtaining and/or reviewing separately obtained history, performing a medically appropriate examination, counseling and educating the patient/family/caregiver, ordering medications, tests, or procedures, independently interpreting results (not separately reported), and communicating results to the patient/family/caregiver. Joon Lopez MD documented in this encounter [facility] 05-11-2024 Note HNO ID: [id number] Author: JOON LOPEZ MD Service: ? Author Type: Physician Type: Progress Notes Filed: 06/18/2024 22:16 Note Text: Chief Complaint Patient presents with: Hospital Follow Up HPI Keisha Red is a 79 year old female who presents here today for a Hospital follow up. Pt here today for a [facility] follow up. Here with daughter, Ana Maria. Pt presented to [facility] ED on 05/04/24 with symptoms of confusion per family, recent fall and return secondary to concern for self care ability. Pt was admitted and discharged on 05/07/24. Questions about medication refills for pain. Has previously had Percocet from this office but Hospital gave her short term Rx due to severe pain from her fall. Pt prefers Percocet as this works for her daughter asking about other options. Pt is getting HH/PT through [facility] out to her home. Just started yesterday. Uro - Follows with Urology, takes Ditropan XL 10 mg once daily. Treated UTI with Macrobid 100 mg bid for 5 days. [facility] Report: HPI - General General Date of Admission: 05/04/24 Date of Service: 05/04/24 Chief Complaint: Confused per family, fall recently, return secondary to concernfor self care ability. HPI Narrative The patient is a 79 y/o F w/ PMHx: Chronic Thrombocytopenia, PAF/Flutter s/p ablation, Obesity, Asthma, Allergic Rhinitis, HTN, HLD, Hx complete HB s/p pacemaker, RAMESH, CKD stage III unclear subtype, Diabetes mellitus type II, Hx Frequent Complicated UTIs w/ persistent history of bilateral hydroureteronephrosis with previous history of distal ureteral stricture following with Dr. Samaniego with most recent intervention 12/2023 with cystoscopy with right ureteral stent placement 01/22/24 and unfortunately continued right hydronephrosis on repeat imaging with appropriate urine output and planned ongoing outpatient follow-up, recent ED evaluation earlier in the day at approximately 1519 with history of unfortunate fall with head injury and back discomfort noted to been on the gravel driveway stepping into a depression unfortunately leading to her falling backwards with no loss of consciousness butsince then some mid back discomfort extending over into the posterior right chest wall with a mild headache and bleeding from the occiput secondary to the fall onto the rocks prompting evaluation at that time with appropriate hemoglobin, INR 1.9, urinalysis noted to be turbid with occult blood 250, leukocyte Estrace 500, negative nitrite, urine RBC and a BCs greater than 100 although urine squamous epithelial cells unfortunately high 10-25 with 3+ urine bacteria however this was repeated and similarly even with appropriate squamous epithelial cells was still significant, CT of the brain with mild soft tissue swelling of the scalp posterior to the parietal lobes without any associated skull fracture or intracranial bleeding, CT cervical spine with no evidence for any acute fracture or subluxation, CT chest with no acute cardiopulmonary pathology and no evidence of any acute rib fractures, CT lumbar spine with no evidence of any acute fracture or subluxation with chronic findings discharged to home on cephalexin 5 mg p.o. every 8 x 7 days planned as well as Percocet small quantity for discomfort who now represents to the [facility] ED later in the evening on 05/04/24 secondary to family concern about inability for patient to becared for at home as no one can be with her tonight or tomorrow with unchanged cognition per EMS but family is worried about recurrent bleeding from the laceration to the posterior scalp prompting them to bring her back in. Althoughpatient per family has been confused in the emergency room she is alert and oriented to herself and recent events. EMS did report that she was at her baseline but has some chronic confusion. Patient notes that she has a constant dull aching throb in her right rib laterally as well as to her back cervical through lumbar worse with movement and even with turning in the bed. She does report still throbbing mild posterior headache but it is improving with no lightand sound sensitivity. Current evaluation includes T99, heart rate 64, BP 160/83, respiratory rate 18, 98% room air. Recent previous ED evaluation with CBC with WBC 9.2, hemoglobin 15.1, MCV 93.2, platelet 128 with increased neutrophils with lymphopenia, INR 1.9, BMP with sodium 135, BUN/creatinine 12/1.0, GFR 57, glucose 168, UA evaluation as noted above. Urine culture pending from recent ED evaluation prior. In the ED upon re-evaluation patient ministered Brickeys 1 tab p.o. x 1 and IV Rocephin 1 g x 1. RAD/Chest 1 View (Portable) IMPRESSION: No acute cardiopulmonary pathology Electronically Signed: Souleymane Mclaughlin MD at 22:48 EDT 05/07/24 Discharge: Diagnosis Discharge Diagnosis (1) Fall: Status: Acute Code(s): W19.XXXA - Unspecified fall, initial encounter (2) Acute cystitis: Status (more content not included)... [facility] 05-11-2024 Telephone encounter Note Steffi VILA calling from [facility] to report plan of care for patient and occupational therapy will visit patient 1 time a week for 5 weeks. Occupational therapy will work with patient on safety and IAdls. No call back needed. Yuko Ordonez RN [facility] 05-11-2024 Telephone encounter Note Detailed message left on [facility]'s identified and secure Home Health voicemail, of message below. Ira Peralta RN [facility] 05-11-2024 Miscellaneous Notes Detailed message left on [facility]'s identified and secure Home Health voicemail, of message below. Ira Peralta RN Looks like had some acute renal insufficiency during admission and eGFR dropped to 4 and Cr up to 1.22, so they stopped metformin. Also, their med list said she was on glimepiride once daily so was unchanged so kept at once daily on discharge, so did not look like they decided to lower her dose during the admission. Blood sugars 130 to 180s there. If she is eating well and blood sugars staying over 100, okay to stay on twice daily glimepiride. Can lower dose as needed. Okay to stay off metformin. eGFR was not that bad, but in case has issues with staying adequately hydrated, better to stay off it. Okay to keep off pain med given tendency to falls, and daughter worries about her tendency to confusion and memory issues. Soren nurse from [facility] HH calling with admission plan of care. [facility] nursing will see 2 times per week for 1 week then 1 time per week for 4 weeks. Confirming pt's med list. Per [facility] discharge med list, Metformin was stopped by hospitalist and Glimepiride was for 2 mg take 1 tablet once a day. Soren noted that on prescription tristian pt has at home the Glimepiride is ordered as 1 tablet two times a day with meals which is confirmed from [facility] med list. He is going to continue having the pt take twice daily since Metformin was discontinued. He is unsure why the Metformin was discontinued. Last HgbA1c done in [place] was 09/23/23 with result 6.5. Appears pt was to have repeated in February but was not done. Had other labs completed but no HgbA1c. Soren has no record of one being done either at [facility] recently. States he has a fasting glucose of 174 done on 05/07/24 at [facility]. Also asked if pt had active Percocet prescription as he found a bottle of both Percocet and an outdated bottle of Oxycodone. Family took both of those bottles out of the home. It appears last prescription for Percocet was given to pt on 10/07/23 for 30 tablets for up to 30 days so end date was 11/06/2023 which drops it off of pt's active med list. He is going to have family keep it out of the house for now as pt keeps falling. PT will be in to evaluate for falls. Pt also has a prescription for Methocarbamol which he sent home with family as well. If any changes or concerns with the above, please call Soren back. Otherwise no call needed. Per note on 05/06, pt is not being scheduled for a hospital follow up and is to just keep her OV appt on 06/22/24. documented in this encounter [facility] 05-10-2024 Telephone encounter Note Looks like had some acute renal insufficiency during admission and eGFR dropped to 4 and Cr up to 1.22, so they stopped metformin. Also, their med list said she was on glimepiride once daily so was unchanged so kept at once daily on discharge, so did not look like they decided to lower her dose during the admission. Blood sugars 130 to 180s there. If she is eating well and blood sugars staying over 100, okay to stay on twice daily glimepiride. Can lower dose as needed. Okay to stay off metformin. eGFR was not that bad, but in case has issues with staying adequately hydrated, better to stay off it. Okay to keep off pain med given tendency to falls, and daughter worries about her tendency to confusion and memory issues. [facility] 05-10-2024 Telephone encounter Note Soren rao from [facility] HH calling with admission plan of care. States nursing will see 2 times per week for 1 week then 1 time per week for 4 weeks. Confirming pt's med list. Per [facility] discharge med list, Metformin was stopped by hospitalist and Glimepiride was for 2 mg take 1 tablet once a day. Soren noted that on prescription tristian pt has at home the Glimepiride is ordered as 1 tablet two times a day with meals which is confirmed from [facility] med list. He is going to continue having the pt take twice daily since Metformin was discontinued. He is unsure why the Metformin was discontinued. Last HgbA1c done in [place] was 09/23/23 with result 6.5. Appears pt was to have repeated in February but was not done. Had other labs completed but no HgbA1c. Soren has no record of one being done either at [facility] recently. States he has a fasting glucose of 174 done on 05/07/24 at [facility]. Also asked if pt had active Percocet prescription as he found a bottle of both Percocet and an outdated bottle of Oxycodone. Family took both of those bottles out of the home. It appears last prescription for Percocet was given to pt on 10/07/23 for 30 tablets for up to 30 days so end date was 11/06/2023 which drops it off of pt's active med list. He is going to have family keep it out of the house for now as pt keeps falling. PT will be in to evaluate for falls. Pt also has a prescription for Methocarbamol which he sent home with family as well. If any changes or concerns with the above, please call Soren back. Otherwise no call needed. Per note on 05/06, pt is not being scheduled for a hospital follow up and is to just keep her OV appt on 06/22/24. [facility] 05-09-2024 Telephone encounter Note Starr with [facility] aware of Provider message. Denies need for patient to be seen sooner for Office visit than 06/22/24. Sylwia Chang LPN [facility] 05-09-2024 Miscellaneous Notes Starr with [facility] aware of Provider message. Denies need for patient to be seen sooner for Office visit than 06/22/24. Sylwia Chang LPN [facility]. She has a PCP visit 06/22/2024, does she need to be seen sooner for hospital discharge follow up? Schedule appt if so. Starr with [facility] HH calls to ask if provider would be willing to follow HH orders for SN, PT, OT, and SW following discharge from [facility] for fall with contusion/laceration of scalp, lumbar strain, and UTI. HH plans to see patient ThursdayMay 10 after discharge and asking for ok for Delay in SOC as well. Please review and advise, Roopa Edgar RN documented in this encounter [facility] 05-06-2024 Telephone encounter Note [facility] for [facility]. She has a PCP visit 06/22/2024, does she need to be seen sooner for hospital discharge follow up? Schedule appt if so. [facility] 05-06-2024 Telephone encounter Note Starr with [facility] HH calls to ask if provider would be willing to follow HH orders for SN, PT, OT, and SW following discharge from [facility] for fall with contusion/laceration of scalp, lumbar strain, and UTI. HH plans to see patient ThursdayMay 10 after discharge and asking for ok for Delay in SOC as well. Please review and advise, Roopa Edgar RN [facility] 04-06-2024 Telephone encounter Note TC to pt. LM to call office, ask for triage nurse to get results. Miguelina Olmstead LPN [facility] 04-06-2024 Miscellaneous Notes TC to pt. LM to call office, ask for triage nurse to get results. Miguelina Olmstead LPN Labs show vitamin b12, magnesium and vitamin d are low. Please let her know I sent in daily supplements for her to start to replace these. Whitney Hammond APRN.[employer] documented in this encounter [facility] 04-06-2024 Telephone encounter Note Labs show vitamin b12, magnesium and vitamin d are low. Please let her know I sent in daily supplements for her to start to replace these. Whitney Hammond APRN.[employer] DES[employer]OR [facility] 03-25-2024 Telephone encounter Note Spoke with patient's daughter Dian, she will fern picker letter from Medical records in a few minutes. Nursing to take to MR. Sylwia Wang BOONE Chang [facility] 03-25-2024 Miscellaneous Notes Spoke with patient's daughter Dian, she will fern picker letter from Medical records in a few minutes. Nursing to take to MR. Sylwia Wang BOONE Chang Did letter Pts daughter called in and reports her and her mother were going to go to [place] [employer] on Thursday or Thursday next week. She was asking if Pts provider could write her a letter for her to bring with them. She states her mother has a pacemaker, asthma, COPD, Bronchitis, and dementia. She states she is on a fixed income and they are going to see what programs they can get her enrolled into to help pay for her propane and electric. Dian states she will come in and fern picker the letter. Please call and advise. documented in this encounter [facility] 03-25-2024 Telephone encounter Note Did letter [facility] 03-24-2024 Telephone encounter Note Pts daughter called in and reports her and her mother were going to go to [employer] on Thursday or Thursday next week. She was asking if Pts provider could write her a letter for her to bring with them. She states her mother has a pacemaker, asthma, COPD, Bronchitis, and dementia. She states she is on a fixed income and they are going to see what programs they can get her enrolled into to help pay for her propane and electric. Dian states she will come in and fern picker the letter. Please call and advise. [facility] 03-22-2024 Telephone encounter Note Results faxed to [facility]. [facility] 03-22-2024 Miscellaneous Notes Results faxed to [facility]. Can we please forward today's INR result to [facility]. Per patient they manage her INR/coumadin. documented in this encounter [facility] 03-22-2024 Telephone encounter Note Can we please forward today's INR result to [facility]. Per patient they manage her INR/coumadin. [facility] 03-22-2024 Instructions Whitney Hammond APRN.CNP - 03/22/2024 9:02 AM EDT Stop the magnesium. Decrease the metformin to only 1 pill in the am and 1 pill in the pm instead of taking it as 2 pills in the am and 2 in the pm. Start taking the glimepiride (Amaryl) as 1 pill in the am and 1 pill in the pm. Try to limit anything spicy, fatty or greasy. Limit also dairy and gluten. documented in this encounter [facility] 03-22-2024 Note HNO ID: [id number] Author: WHITNEY HAMMOND APRN.CNP Service: ? Author Type: Nurse Practitioner Type: Progress Notes Filed: 03/22/2024 12:51 Note Text: SUBJECTIVE Keisha Red is a 79 year old female here today for a check up on her medical problems. Chief Complaint Patient presents with: F/U 3 Month Musculoskeletal Problem: right knee asuncion at times but is able to catch herself from falling HPI Keisha Red is a 79 year old female. She is an established patient of Joon Lopez MD. She is here today for a 3 month follow up. Accompanied by a family member. Has been drinking more water, no more episodes of near passing out. She notes that she is often tired, wants to sleep a lot. Hard time falling asleep at night. Her dog snores and this keeps her up. She does not snore. Some concerns about looser stools lately. Some incontinence but aware this is occurring. Blood sugars are doing really good. Family has noticed some memory changes. More forgetful. Not sure when she was supposed to follow up on her INR, [facility] manages INR for a fib. Her medications were reviewed today and her list is now up to date. Medications Current Outpatient Medications Medication Sig triamcinolone acetonide (KENALOG) 0.1 % cream Apply 1 application to affected area three times daily as needed. For rash on extremities and leg budesonide-formoterol (SYMBICORT) 160-4.5 mcg/actuation inhaler Inhale 2 Puffs as instructed twice daily. ([facility] pulmonology) warfarin (COUMADIN) 5 mg tablet Take 1 tablet by mouth once daily. diclofenac (VOLTAREN ARTHRITIS PAIN) 1 % topical gel Apply 2 g to affected area four times daily. (Patient taking differently: Apply 2 g to affected area four times daily. Takes as needed) albuterol HFA (PROAIR HFA) 90 mcg/actuation inhaler Inhale 2 Puffs as instructed every 4 hours as needed for wheezing/shortness of breath. 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 gabapentin (NEURONTIN) 300 mg capsule Take 2 capsules by mouth daily at bedtime AND 1 capsule every morning. Do all this for 180 days. glimepiride (AMARYL) 2 mg tablet Take 1 tablet by mouth two times a day with meals. metFORMIN ER (GLUCOPHAGE XR) 500 mg 24 hr tablet Take 1 tablet by mouth two times a day with meals. TENS unit and electrodes cmpk 1 Each [...] medications for this visit. ALLERGIES Allergen Reactions Tizanidine Mental Status Change, Other: See Comments Made her feel like in another world. Very dry mouth. 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 Agudelo Muscle Spasm Rotator Cuff Tear - 05/06/2011 Diabetes Mellitus Type 2, Controlled, Without Complications ([facility]) Hyperlipemia - 12/19/2010 Back Strain, recurrent [...] No Drug use: Never Review of Systems Respiratory: Negative. Cardiovascular: Negative. Gastrointestinal: Positive for diarrhea. Negative for abdominal distention, abdominal pain, anal bleeding, blood in stool, constipation, nausea, rectal pain and vomiting. OBJECTIVE BP 138/72 Pulse 90 Wt 194 lb (88.0kg) SpO2 96% Physical Exam Vitals and nursing note reviewed. Constitutional: General: She is awake. She is not in acute distress. Appearance: Normal appearance. She is well-developed and well-groomed. She is not ill-appearing, toxic-appearing or diaphoretic. HENT: Head: Normocephalic. Right Ear: External ear normal. Left Ear: External ear normal. Nose: (more content not included)... [facility] 03-22-2024 History of Present illness Narrative JESSICA Red is a 79 year old female here today for a check up on her medical problems. Chief Complaint Patient presents with: F/U 3 Month Musculoskeletal Problem: right knee asuncion at times but is able to catch herself from falling HPI Keisha Red is a 79 year old female. She is an established patient of Joon Lopez MD. She is here today for a 3 month follow up. Accompanied by a family member. Has been drinking more water, no more episodes of near passing out. She notes that she is often tired, wants to sleep a lot. Hard time falling asleep at night. Her dog snores and this keeps her up. She does not snore. Some concerns about looser stools lately. Some incontinence but aware this is occurring. Blood sugars are doing really good. Family has noticed some memory changes. More forgetful. Not sure when she was supposed to follow up on her INR, [facility] manages INR for a fib. Her medications were reviewed today and her list is now up to date. Medications Current Outpatient Medications Medication Sig triamcinolone acetonide (KENALOG) 0.1 % cream Apply 1 application to affected area three times daily as needed. For rash on extremities and leg budesonide-formoterol (SYMBICORT) 160-4.5 mcg/actuation inhaler Inhale 2 Puffs as instructed twice daily. ([facility] pulmonology) warfarin (COUMADIN) 5 mg tablet Take 1 tablet by mouth once daily. diclofenac (VOLTAREN ARTHRITIS PAIN) 1 % topical gel Apply 2 g to affected area four times daily. (Patient taking differently: Apply 2 g to affected area four times daily. Takes as needed) albuterol HFA (PROAIR HFA) 90 mcg/actuation inhaler Inhale 2 Puffs as instructed every 4 hours as needed for wheezing/shortness of breath. 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 gabapentin (NEURONTIN) 300 mg capsule Take 2 capsules by mouth daily at bedtime AND 1 capsule every morning. Do all this for 180 days. glimepiride (AMARYL) 2 mg tablet Take 1 tablet by mouth two times a day with meals. metFORMIN ER (GLUCOPHAGE XR) 500 mg 24 hr tablet Take 1 tablet by mouth two times a day with meals. TENS unit and electrodes cmpk 1 Each [...] medications for this visit. ALLERGIES Allergen Reactions Tizanidine Mental Status Change, Other: See Comments Made her feel like in another world. Very dry mouth. Stumbling/falling Amoxicillin Hives Aspirin Hives, shortness of breath Sulfa (Sulfonamide * Hives ACTIVE PROBLEM LIST Obesity, Class I, Bmi 30-34.9 - 09/23/2023 Hemorrhagic Disorder Due to Extrinsic Circulating Anticoagulants ([facility]) - 09/23/2023 Ulcer of Right Lower Extremity With Fat Layer Exposed ([facility]) - 07/26/2023 Pulmonary Hypertension ([facility]) - 05/03/2023 Ramesh (Obstructive Sleep Apnea) - 01/21/2021 Pacemaker - 01/21/2021 Bilateral Carpal Tunnel Syndrome - 01/21/2021 Atrial Flutter ([facility]) - 04/12/2019 Anticoagulated On Coumadin - 04/12/2019 Severe Low Back Pain - 12/28/2018 Ddd (Degenerative Disc Disease), Lumbar Comment: Dr. Agudelo Muscle Spasm Rotator Cuff Tear - 05/06/2011 Diabetes Mellitus Type 2, Controlled, Without Complications ([facility]) Hyperlipemia - 12/19/2010 Back Strain, recurrent [...] No Drug use: Never Review of Systems Respiratory: Negative. Cardiovascular: Negative. Gastrointestinal: Positive for diarrhea. Negative for abdominal distention, abdominal pain, anal bleeding, blood in stool, constipation, nausea, rectal pain and vomiting. OBJECTIVE BP 138/72 Pulse 90 Wt 194 lb (88.0kg) SpO2 96% Physical Exam Vitals and nursing note reviewed. [...] memory normal. Judgment: Judgment normal. ASSESSMENT/PLAN: 1. Controlled type 2 diabetes mellitus without complication, without long-term current use of insulin ([facility]) - ICD9: 250.00, ICD10: E11.9 (primary diagnosis) - Controlled - Counseled on healthy diet and regular exercise - Discussed need for and benefit of weight loss. BMI 31.31 kg/(m^2) - Potentially her looser stool is coming from metformin, we will decrease the dose and adjust her glimepiride to help compensate for the change. - GLIMEPIRIDE 2 MG TABLET - METFORMIN ER 500 MG TABLET,EXTENDED RELEASE 24 HR - HEMOGLOBIN A1C 2. Loose stools - ICD9: 787.7, ICD10: R19.5 Discussed avoiding trigger foods. Reduce metformin. 3. Cognitive impairment - ICD9: 294.9, ICD10: R41.89 - VITAMIN B12 - THYROID STIMULATING HORMONE - VITAMIN D 25 HYDROXY 4. Anticoagulated on Coumadin - ICD9: V58.61, ICD10: Z79.01 Get INR today and we can forward results to [facility] 5. Atrial flutter, unspecified type (HCC) - ICD9: 427.32, ICD10: I48.92 - PROTHROMBIN TIME 6. Vitamin D deficiency - ICD9: 268.9, ICD10: E55.9 - VITAMIN D 25 HYDROXY 7. Encounter for therapeutic drug monitoring - ICD9: V58.83, ICD10: Z51.81 - COMPLETE BLOOD COUNT AND DIFFERENTIAL - COMPREHENSIVE METABOLIC PANEL - MAGNESIUM - PROTHROMBIN TIME Portions of this note have been entered [...] improve, for Keep next scheduled appointment.. Whitney Hammond APRN-DOMINGO documented in this encounter [facility] 03-22-2024 Telephone encounter Note Pharmacy request denied. Patient needs to contact office for refills. Jamari Maki MA [facility] 03-22-2024 Miscellaneous Notes Pharmacy request denied. Patient needs to contact office for refills. Jamari Maki MA documented in this encounter [facility] 03-18-2024 Telephone encounter Note My chart message to pt. [facility] 03-18-2024 Miscellaneous Notes My chart message to pt. OK order is in, check with patient to see if wanting to schedule Patient's insurance, [employer], called to report that the patient recently experienced a fracture on her left elbow. She is eligible to have a bone density scan 05/07/24. Order pended, please contact patient when order is signed and available for scheduling. documented in this encounter [facility] 03-18-2024 Telephone encounter Note OK order is in, check with patient to see if wanting to schedule [facility] 03-17-2024 Telephone encounter Note Patient's insurance, [employer], called to report that the patient recently experienced a fracture on her left elbow. She is eligible to have a bone density scan 05/07/24. Order pended, please contact patient when order is signed and available for scheduling. [facility] 02-03-2024 Note HNO ID: [id number] Author: JOON LOPEZ MD Service: ? Author Type: Physician Type: Progress Notes Filed: 03/14/2024 00:48 Note Text: This note was created using [employer]. Subjective Keisha Red is a 78 year old female. Patient presents with: Hospital F/U SUBJECTIVE: Keisha Red is a 78 year old year old lady here today for hospital follow up appointment for review of medical conditions. Admitted overnight. Reviewed records. Discussed with patient and daughter. Noted that has renal stent--pain was bad first couple days; better now. Dehydration from poor oral intake noted. Making sure drinking enough water--5 bottles (about ounces) of water yesterday. Adding flavored electrolyte packet to put in her water. No nausea. Eats toast. [employer] PB on bread (not toast). Likes veggies only if roasted. See assessment and plan for other issues addressed. PAST MEDICAL HISTORY Diagnosis Date Allergic rhinitis, [...] Right shoulder s/p fall with reduction at [facility] Type II or unspecified type diabetes mellitus without mention of complication, not stated as uncontrolled Unspecified asthma(493.90) Unspecified essential hypertension Current Outpatient Medications Medication Sig albuterol HFA (PROAIR HFA) 90 mcg/actuation inhaler Inhale 2 Puffs as instructed every 4 hours as needed for wheezing/shortness of breath. 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 ([facility] pulmonology) blood sugar diagnostic (BLOOD GLUCOSE [...] this visit. Review of Systems Objective BP 124/72 (BP Site: Left Arm, BP Position: Sitting, BP Cuff Size: Large Adult) Pulse 84 Resp 16 Wt 86.2 kg (190 lb) BMI 30.67 kg/m? Last 5 Encounter Wt Readings: Date: Wt: 02/03/2024 86.2 kg (190 lb) 01/05/2024 88 kg (194 lb) 10/07/2023 88.5 kg (195 lb 1.6 oz) 09/23/2023 89.8 kg (198 lb) 06/22/2023 89.8 kg (198 lb) No waist measurement recorded Estimated body mass index is 30.67 kg/m? as calculated from the following: Height as of 01/07/22: 167.6 cm (5' 6 ). Weight as of this encounter: 86.2 kg (190 lb). Last 5 Encounter BP Readings: Date: BP: 02/03/2024 124/72 01/05/2024 120/68 10/07/2023 140/80 09/23/2023 128/70 06/22/2023 122/66 Physical Exam Constitutional: Appearance: Normal appearance. HENT: [...] Content: Thought content normal. Judgment: Judgment normal. Reviewed labs from [facility]. Assessment and Plan Encounter Diagnosis ICD-10-CM 1. Near syncope R55 blacked out meant her vision went dark and fell on bed but did not have LOC. Dehydrati (more content not included)... [facility] 02-03-2024 History of Present illness Narrative This note was created using [employer]. Subjective Keisha Red is a 78 year old female. Patient presents with: Hospital F/U SUBJECTIVE: Keisha Red is a 78 year old year old lady here today for hospital follow up appointment for review of medical conditions. Admitted overnight. Reviewed records. Discussed with patient and daughter. Noted that has renal stent--pain was bad first couple days; better now. Dehydration from poor oral intake noted. Making sure drinking enough water--5 bottles (about ounces) of water yesterday. Adding flavored electrolyte packet to put in her water. No nausea. Eats toast. [employer] PB on bread (not toast). Likes veggies only if roasted. See assessment and plan for other issues addressed. PAST MEDICAL HISTORY Diagnosis Date Allergic rhinitis, [...] Right shoulder s/p fall with reduction at [facility] Type II or unspecified type diabetes mellitus without mention of complication, not stated as uncontrolled Unspecified asthma(493.90) Unspecified essential hypertension Current Outpatient Medications Medication Sig albuterol HFA (PROAIR HFA) 90 mcg/actuation inhaler Inhale 2 Puffs as instructed every 4 hours as needed for wheezing/shortness of breath. 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 ([facility] pulmonology) blood sugar diagnostic (BLOOD GLUCOSE [...] this visit. Review of Systems Objective BP 124/72 (BP Site: Left Arm, BP Position: Sitting, BP Cuff Size: Large Adult) Pulse 84 Resp 16 Wt 86.2 kg (190 lb) BMI 30.67 kg/m Last 5 Encounter Wt Readings: Date: Wt: 02/03/2024 86.2 kg (190 lb) 01/05/2024 88 kg (194 lb) 10/07/2023 88.5 kg (195 lb 1.6 oz) 09/23/2023 89.8 kg (198 lb) 06/22/2023 89.8 kg (198 lb) No waist measurement recorded Estimated body mass index is 30.67 kg/m as calculated from the following: Height as of 01/07/22: 167.6 cm (5' 6 ). Weight as of this encounter: 86.2 kg (190 lb). Last 5 Encounter BP Readings: Date: BP: 02/03/2024 124/72 01/05/2024 120/68 10/07/2023 140/80 09/23/2023 128/70 06/22/2023 122/66 Physical Exam Constitutional: Appearance: Normal appearance. HENT: [...] Content: Thought content normal. Judgment: Judgment normal. Reviewed labs from [facility]. Assessment and Plan Encounter Diagnosis ICD-10-CM 1. Near syncope R55 blacked out meant her vision went dark and fell on bed but did not have LOC. Dehydration main cause. 2. Urinary incontinence without sensory awareness N39.42 Wearing pads 3. 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 Work on sleep hygiene. 4. Hydronephrosis, right N13.30 s/p ureteral stent placement. Tolerating well. Follow up with urologist as scheduled 5. Dehydration E86.0 Clinically improved now. Encouraged to continue drinking enough fluids daily Above issues addressed with patient. Patient involved in shared decision making for management of medical issues. History and medications reviewed. Epic updated as needed Refills and/or prescriptions taken care of and meds adjusted as indicated after reviewed history, exam and labs. Health Maintenance reviewed. Updated record and/or ordered tests as recorded. Encouraged on efforts at healthy diet and regular exercise and adequate sleep. I spent a total of 28 minutes on the date of the service which included [id number] patient care, completing clinical documentation, obtaining and/or reviewing separately obtained history, performing a medically appropriate examination, counseling and educating the patient/family/caregiver, ordering medications, tests, or procedures, independently interpreting results (not separately reported), and communicating results to the patient/family/caregiver. Joon Lopez MD documented in this encounter [facility] 01-29-2024 Hospital Discharge instructions Patient Education 01/28/2024 23:49:50 Syncope, Unk Cause Fainting: Uncertain Cause Fainting (syncope) is a temporary loss of consciousness, which is often associated with a loss of postural tone. There are other causes of fainting, too. It s also called passing out. It occurs when blood flow to the brain is less than normal. Near-fainting (near-syncope) is very similar to fainting, but you don t fully pass out. Common minor causes of fainting include: Sudden fear Pain Nausea Emotional stress Overexertion Suddenly standing up after sitting or lying for a long time can also cause fainting. More serious causes of fainting include: Very slow or very fast heartbeat (arrhythmia) Other types of heart disease, such as heart valve disease or coronary artery disease Dehydration Loss of blood Seizure Stroke Ruptured blood vessel in the brain Taking too much high blood pressure medicine can also cause low blood pressure and fainting. Your healthcare provider does not know the exact cause of your fainting. But the tests today did not show any of the serious causes of fainting. Sometimes you may need more tests to find out if you have a serious problem. That s why it s important to follow up with your provider as advised. Home care Follow these guidelines when caring for yourself at home: Rest today. You may go back to your normal activities when you are feeling back to normal. It is best to stay with someone who can check on you for the next 24 hours to watch for another episode of fainting. If you become lightheaded or dizzy, lie down right away and try to prop your feet above the level of your head. Or sit with your head between your knees. Because the provider doesn t know the exact cause of your fainting or near-fainting spell, it s possible for you to have another spell without warning. Because of this, don t drive a car or operate dangerous equipment. Don t take a bath alone. Use a shower instead. Don t swim alone until your healthcare provider says that you are no longer in danger of having another fainting spell. Follow-up care Follow up with your healthcare provider, or as advised. Call 911 Call 911 if any of these occur: Another fainting spell that s not explained by the common causes listed above Pain in your chest, arm, neck, jaw, back, or abdomen Shortness of breath Severe headache or seizure Blood in vomit or stools (black or red color) Unexpected vaginal bleeding Your heart beats very rapidly, very slowly, or irregularly (palpitations) Weakness in an arm or leg or on one side of the face Difficulty speaking or seeing Extreme drowsiness, confusion, dizziness, or fainting [id number] [employer]. [address] [place] [address]. All rights reserved. This information is not intended as a substitute for professional medical care. Always follow your healthcare professional's instructions. Follow Up Care 01/28/2024 20:16:13 With:JOON LOPEZ MD Address: [address] [place] [address]- When:2-4 days [facility] 01-28-2024 Note Discharge Instructions Thank you for allowing [facility] to assist you with your healthcare needs. The following is important discharge information regarding your hospital visit. Diagnosis from Today's Visit Abdominal pain Dizziness Syncope What to Do Next Instructions from Your Care Team Discharge Return to Work, School, or Sports (Return to Work, School, or Sports) - Ordered -- 01/30/24, May return to: work, Present with family member, 01/28/24 23:49:00 EDT Discharge Return to Work, School, or Sports (Return to Work, School, or Sports) - Ordered -- 01/30/24, May return to: work, Present with family member, 01/28/24 23:50:00 EDT Post Acute Orders No qualifying data available. You Need to Schedule the Following Appointments Follow Up with JOON LOPEZ MD When Within 2-4 days Where: [address] [place], [place] [id number]- Allergies amoxicillin penicillin sulfamethoxazole Medications Please ask your primary doctor or pharmacist before taking any other medication not listed, including over the counter drugs, herbal medications, vitamins and or supplements as they may interact with your home medications. What How Much When Instructions Last Dose Unchanged albuterol (albuterol MDI (90 mcg/ inh) CFC free inhalation aerosol) 1 puff(s) by inhalation Every 4 hours as needed for as needed for wheezing Unchanged atorvastatin (atorvastatin 10 mg oral tablet) 1 tab(s) by mouth Every day Unchanged budesonide-formoterol (Symbicort 80 mcg-4.5 mcg/ inh Inhaler) 2 puff(s) by inhalation Two (2) times a day Unchanged gabapentin (gabapentin 300 mg oral capsule) 1 cap by mouth Two (2) times a day Unchanged herbal/ nutritional product (Magnesium complex 400 mg) 400 Milligram by mouth Every day Unchanged metFORMIN (MetFORMIN (Eqv-Fortamet) 1000 mg oral tablet, EXTENDED RELEASE) 1 tab(s) by mouth Two (2) times a day Okay to substitute for generic Glucophage XR Unchanged oxyCODONE (oxyCODONE 5 mg oral tablet ( IMMEDIATE release )) 1 tab(s) by mouth Every 8 hours Unchanged warfarin 5 Milligram by mouth Once a day Please take this list to your next doctor s visit. Bring all medications you take, including over the counter medications, herbals and other supplements with you to your doctor s visit. Patients and families are reminded to discard old lists and to update any records with all medication providers or retail pharmacies. Education Materials Fainting: Uncertain Cause Fainting (syncope) is a temporary loss of consciousness, which is often associated with a loss of postural tone. There are other causes of fainting, too. It s also called passing out. It occurs when blood flow to the brain is less than normal. Near-fainting (near-syncope) is very similar to fainting, but you don t fully pass out. Common minor causes of fainting include: Sudden fear Pain Nausea Emotional stress Overexertion Suddenly standing up after sitting or lying for a long time can also cause fainting. More serious causes of fainting include: Very slow or very fast heartbeat (arrhythmia) Other types of heart disease, such as heart valve disease or coronary artery disease Dehydration Loss of blood Seizure Stroke Ruptured blood vessel in the brain Taking too much high blood pressure medicine can also cause low blood pressure and fainting. Your healthcare provider does not know the exact cause of your fainting. But the tests today did not show any of the serious causes of fainting. Sometimes you may need more tests to find out if you have a serious problem. That s why it s important to follow up with your provider as advised. Home care Follow these guidelines when caring for yourself at home: Rest today. You may go back to your normal activities when you are feeling back to normal. It is best to stay with someone who can check on you for the next 24 hours to watch for another episode of fainting. If you become lightheaded or dizzy, lie down right away and try to prop your feet above the level of your head. Or sit with your head between your knees. Because the provider doesn t know the exact cause of your fainting or near-fainting spell, it s possible for you to have another spell without warning. Because of this, don t drive a car or operate dangerous equipment. Don t take a bath alone. Use a shower instead. Don t swim alone until your healthcare provider says that you are no longer in danger of having another fainting spell. Follow-up care Follow up with your healthcare provider, or as advised. Call 911 Call 911 if any of these occur: Another fainting spell that s not explained by the common causes listed above Pain in your chest, arm, neck, jaw, back, or abdomen Shortness of breath Severe headache or seizure Blood in vomit or stools (black or red color) Unexpected vaginal bleeding Your heart beats very rapidly, very slowly, or irregularly (palpitations) Weakness in an arm or leg or on one side of the face Difficulty speaking or seeing Extreme drowsiness, confusion, dizziness, or fainting [id number] [employer]. [address] [place] [address]. All rights reserved. This information is not intended as a substitute for professional medical care. Always follow your healthcare professional's instructions. Additional Information VACCINATE! IT SAVES LIVES! Members of the community who have not yet received the COVID-19 vaccine and would like to receive it can visit one of [facility] vaccine clinics. There are many vaccine clinic locations within the [facility]. For locations and available times, please visit www.gettheshot.coronavirus.[place].gov /. It is important to note that some COVID mobile vaccine clinics are held outdoors and may be canceled in rainy or stormy conditions. To learn more about pediatric vaccinations (ages 5-11), we invite you to visit the [facility] webpage. [email or web address]/page [email or web address]-Ahtlk-Fmwpmuftydc-Frequently -[email or web address]-Questions.html To learn more about the COVID-19 vaccine, we invite you to visit the CDC website for a list of frequently asked questions. https://www.cdc.gov/coronavirus/201 9-ncov/vaccines/faq.html [facility] Patient Portal Access Instructions: Stay connected with your healthcare team and access your personal medical information anytime with the [facility] Patient Portal. If you would like a full copy of your medical records please contact the [facility] Medical Records Department Thursday through Thursday between 8a.m. and 4:30p.m. Please follow the directions below to access the portal: 1.Access the email account you provided upon registration to the [facility].2.Look for an invitation email from [facility].3.Open the email and access the invitation link: Accept Invitation to [facility]4.Fill in the required leger to create your account. Sign into [email or web address] with your username and password that you created in the above steps to stay up to date. You can then view a summary of results, a summary of your visits, and the ability to download your summaries to your computer or send the information securely to a physician. Remember that your healthcare information is confidential, so carefully consider who you will allow to register on the [facility] Patient Portal for access to your information. You can also access the [facility] Patient Portal on the [employer]. Simply click on Health Records under Health Data and then click on the [employer] logo. HOW TO SAFELY DISPOSE OF PRESCRIPTION MEDICATIONS Please use one of the following methods to safely dispose of your unused medications. 1.Use a drug disposal kit: the drug disposal pouch allows you to safely discard your old and unused drugs. Ask your nurse to give you one when you are discharged.2.Visit a local take-back location: Many local pharmacies and police departments have programs that collect old and unwanted prescription drugs. Call your local pharmacy or go to http://bit.Eferio/9X6Jr0u to find one close to you.3.Make use of household items: Use cat litter or old coffee grounds to dispose medications if other options are not available. Mix your drugs with these household products, seal them in an airtight container and throw it into the garbage. Call [facility]: [phone] to be sure your drugs can be disposed of in this way. Some medicines may require a different approach.4.Never flush your medications down the toilet. IF YOU HAVE BEEN PRESCRIBED AN OPIOIDS FOR PAIN If you have been prescribed an opioid (such as hydrocodone, oxycodone or morphine), it is critical to understand the possible side effects and risks of opioid pain medications. Even when taken as directed, opioids can have several side effects including: Tolerance, meaning you might need to take more of a medication for the same pain relief. Nausea, vomiting and/or constipation. Sleepiness, dizziness, dry mouth, confusion, depression or itching. Physical dependence, meaning you have withdrawal symptoms when a medication is stopped ? this can develop within a few days. KNOW YOUR RESPONSIBILITIES It is important to know exactly how much and how often to take the opioid pain medications you are prescribed. Never take opioids in higher amounts or more often than prescribed. Do not combine opioids with alcohol or other drugs that cause drowsiness, such as benzodiazepines, also known as benzos, including diazepam and alprazolam, muscle relaxants or sleep aids. Never sell or share prescription opioids. This is illegal. Store opioids in a secure place and out of reach of others (including children, family, friends and visitors). The last page(s) of this document has been signed and retained as a CHART COPY Signatures Patient Education Materials Syncope, Unk Cause Medication Leaflets My discharge plan and instructions have been reviewed and explained to me and INEDA RITA L understand my current condition and have read and understand these discharge instructions. I have received a written copy of the plan/instructions. If I have questions, I am aware that I should contact my doctor. 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 HISTORY: ORDERING SYSTEM PROVIDED HISTORY: Reason for Exam: syncopal episode FINDINGS: There is left thoracic transvenous pacemaker. There is hypoinflation with accentuation of the cardiomediastinal silhouette and increased bronchovascular markings. There is no consolidation or pleural effusion. There is no pulmonary vascular congestion. There is no pneumothorax. Osseous structures demonstrate degenerative changes. There are small calcifications projected inferior to the right humeral head. IMPRESSION: 1. There is no consolidation or effusion. Interpreted by: Jl Canada Preliminary Report By: Jl Canada Electronically signed By Jl Canada Dictated Date: 01/28/2024 10:15:55 PM Prelim Date: 01/28/2024 10:18:43 PM Sign Date: 01/28/2024 10:18:43 PM Ordering Provider: RUBIO GONZALEZ [facility] 01-28-2024 Note Afib/flutter and peter tricular-paced rhythm No further analysis attempted due to paced rhythm EKG interpretation is noted and agreed to in [facility]. The interpretation of this patient's EKG contributed directly to the care and management of this patient. Electronic Signature: RUBIO GONZALEZ DO 01/28/2024 21:28:14 [facility] 01-28-2024 Miscellaneous Notes DaughterBrooke calling to report mother has new symptoms of severe weakness in legs, unable to walk, stumbling and falling into things when she tries to walk. Patient has nausea/vomiting and is a little confused per daughter. This nurse spoke briefly with patient who states I can't walk and I blacked out for a few seconds Her daughter was not with her at the time patient says she blacked out. Advised ER evaluation. Daughter says she will call 911. Taylor Ruffin RN Reason for Disposition [1] SEVERE weakness (i.e., unable to walk or barely able to walk, requires support) AND [2] new-onset or worsening Answer Assessment - Initial Assessment Questions 1. SYMPTOM: Per daughter, patient complains of weakness, difficulty walking, stumbling, falling into things 2. ONSET: 30 minutes ago 3. LAST NORMAL: Daughter is not sure 4. PATTERN : Symptoms are present now 5. CARDIAC SYMPTOMS: Denies chest pain, SOB 6. NEUROLOGIC SYMPTOMS:Patient says I can't walk and I blacked out For a few minutes 7. OTHER SYMPTOMS: Nausea/vomiting Daughter says patient seems confused -no slurred speech -no weakness on one side of body -no weakness in face/no mouth droop Protocols used: Neurologic [id number]-[id number]-RM documented in this encounter [facility] 01-20-2024 Note HNO ID: [id number] Author: JOON LOPEZ MD Service: ? Author Type: Physician Type: Progress Notes Filed: 01/20/2024 12:12 Note Text: This note was created using [employer]. Subjective Keisha Red is a 78 year old female. Patient presents with: Follow Up: 3 month follow up SUBJECTIVE: Keisha Red is a 78 year old year old lady here today for 3 month follow up appointment for review of medical conditions. Chief complaint - Regular three-month check-up - Upcoming biopsy due to cancer - Difficulty sleeping History of present illness - Patient has been seeing the doctor for regular three-month check-ups - Upcoming biopsy to investigate cancer - Reports difficulty sleeping, often stays up late watching TV - Reports frequent urination at night - Reports itching on the legs - Sugar control if good. - Blood pressure controlled without adverse effects from medications. Past medical history - History of cancer - History of diabetes, controlled with Metformin - History of respiratory issues, controlled with Albuterol and Symbicort Social history - Patient watches TV late into the night - Patient enjoys snacks like popcorn and DOTS chips PAST MEDICAL HISTORY Diagnosis Date Allergic rhinitis, [...] Right shoulder s/p fall with reduction at [facility] Type II or unspecified type diabetes mellitus without mention of complication, not stated as uncontrolled Unspecified asthma(493.90) Unspecified essential hypertension Current Outpatient Medications Medication Sig albuterol HFA (PROAIR HFA) 90 mcg/actuation inhaler Inhale 2 Puffs as instructed every 4 hours as needed for wheezing/shortness of breath. 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 ([facility] pulmonology) blood sugar diagnostic (BLOOD GLUCOSE [...] visit. Review of Systems Objective BP (P) 124/76 (BP Site: Left Arm, BP Position: Sitting, BP Cuff Size: Large Adult) Pulse (P) 84 Wt (P) 87.1 kg (192 lb) BMI (P) 30.99 kg/m? Physical Exam Constitutional: Appearance: Normal appearance. HENT: Head: Normocephalic. Eyes: Conjunctiva/sclera: Conjunctivae normal. Cardiovascular: Rate and Rhythm: Normal rate and regular rhythm. Heart sounds: Normal heart sounds. Pulmonary: Effort: Pulmonary effort is normal. Breath sounds: Normal breath sounds. Musculoskeletal: Right lower leg: No edema. Left lower leg: No edema. Skin: General: Skin is warm and dry. Comments: ~1cm ulcer, right pretibial--- Leg ulcer on right villagomez is healing, no signs of infection. [place]. Not wearing nonstick dressing that had given to her at last appointment Neurological: General: No focal deficit present. Mental Status: She is alert and oriented to person, place, and time. Psychiatric: Attention and Perception: Attention and perception normal. Mood and Affect: Mood is anxious (Expressed anxiety about biopsy and cancer diagnosis). Speech: Speech normal. Behavior: Behavior normal. Thought Content: Thought content normal. Judgment: Judgment normal. Assessment and Plan Encounter Diagnosis ICD-10-CM 1. Controlled type 2 diabetes mellitus wi (more content not included)... [facility] 01-05-2024 Miscellaneous Notes Did MME and discussed memory during appointment. Patient brought up memory after I did MME as a cognition screening for the year. Daughter Keisha calls to report that pt is having memory issues. Pt will tell family something and then forget right after that she told them. Keisha reports pt sits watching tv all day. Keisha reports they have seen it more so since pt got out of hospital and the family has bee around pt more. Keisha is asking if there is a dementia type of test that can be given to the pt at tomorrow 01/04. Keisha reports pt will get mad if daughter says anything if front of the dr. Any Peacock LPN documented in this encounter [facility] 01-05-2024 Note HNO ID: [id number] Author: JOON LOPEZ MD Service: ? Author Type: Physician Type: Progress Notes Filed: 02/18/2024 09:31 Note Text: This note was created using NoteWriter. Subjective Keisha Red is a 78 year old female. Patient presents with: Hospital F/U SUBJECTIVE: Keisha Red is a 78 year old year old lady here today for hospital follow up appointment for review of medical conditions. Noted some UTI symptoms. Noted was admitted 12/28 and discharged 12/28 Fell due to dog. Landed on back. Hurting in front under breasts. Noted kidney with blockage on right. Hydronephrosis noted. Biopsy to be done. Biopsy set for 01/21 due to insurance not covering on 01/14. Dr. Samaniego. Preop will be 01/13. Pacemaker battery okay for 4 months. Preop coumadin being managed by Dr. Kline/ [facility]. Memory issues noted PAST MEDICAL HISTORY Diagnosis Date Allergic rhinitis, [...] Right shoulder s/p fall with reduction at [facility] Type II or unspecified type diabetes mellitus without mention of complication, not stated as uncontrolled Unspecified asthma(493.90) Unspecified essential hypertension Current Outpatient Medications Medication Sig albuterol HFA (PROAIR HFA) 90 mcg/actuation inhaler Inhale 2 Puffs as instructed every 4 hours as needed for wheezing/shortness of breath. 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 ([facility] pulmonology) blood sugar diagnostic (BLOOD GLUCOSE [...] this visit. Review of Systems Objective BP 120/68 (BP Site: Left Arm, BP Position: Sitting, BP Cuff Size: Large Adult) Pulse 60 Temp 36.9 ?C (98.5 ?F) (Left Tympanic) Wt 88 kg (194 lb) BMI 31.31 kg/m? Physical Exam Constitutional: Appearance: Normal appearance. HENT: Head: Normocephalic. Eyes: Conjunctiva/sclera: Conjunctivae normal. Cardiovascular: Rate and Rhythm: Normal rate and regular rhythm. Heart sounds: Normal heart sounds. Pulmonary: Effort: Pulmonary effort is normal. Breath sounds: Normal breath sounds. Skin: General: Skin is warm and dry. Comments: Right pretibial leg ulcer noted about 15mm diameter with clean edges, no slough or redness around wound. Clean pink base. Neurological: General: No focal deficit present. Mental Status: She is alert and oriented to person, place, and time. Psychiatric: Mood and Affect: Mood normal. Behavior: Behavior normal. Thought Content: Thought content normal. Judgment: Judgment normal. MINI MENTAL EXAM I. ORIENTATION (MAXIMUM SCORE 10) DATE (1) 1 YEAR(1) 1 MONTH(1) 1 DAY(1) 1 SEASON(1) 0 HOSPITAL(1) 1 FLOOR(1) 1 CITY(1) 1 COUNTY (1) 1 STATE(1) 1 II Immediate recall(Maximum score 3) BALL 1 FLAG 0 TREE 0 Attention and Calculation (Maximum score 5) a. Counting Backward b. Spelling Backward D 1 L 1 R 0 O 0 W 1 IV. Recall(Maximum score 9) Ball 1 Flag 0-got with hint Tree 0--got with hint V. Language(Maximum score 9) Naming Watch1 Pencil 1 Repetition 1 3 Stage Command 3 Reading 1 Writing 1 Copying 1 Final Score= Assessment and Plan Encounter Diagnosis ICD-10-CM 1. Urinary incontinence wi (more content not included)... [facility] 01-05-2024 History of Present illness Narrative This note was created using [employer]. Subjective Keisha Red is a 78 year old female. Patient presents with: Hospital F/U SUBJECTIVE: Keisha Red is a 78 year old year old lady here today for hospital follow up appointment for review of medical conditions. Noted some UTI symptoms. Noted was admitted 12/28 and discharged 12/28 Fell due to dog. Landed on back. Hurting in front under breasts. Noted kidney with blockage on right. Hydronephrosis noted. Biopsy to be done. Biopsy set for 01/21 due to insurance not covering on 01/14. Dr. Samaniego. Preop will be 01/13. Pacemaker battery okay for 4 months. Preop coumadin being managed by Dr. Kline/ [facility]. Memory issues noted PAST MEDICAL HISTORY Diagnosis Date Allergic rhinitis, [...] Right shoulder s/p fall with reduction at [facility] Type II or unspecified type diabetes mellitus without mention of complication, not stated as uncontrolled Unspecified asthma(493.90) Unspecified essential hypertension Current Outpatient Medications Medication Sig albuterol HFA (PROAIR HFA) 90 mcg/actuation inhaler Inhale 2 Puffs as instructed every 4 hours as needed for wheezing/shortness of breath. 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 ([facility] pulmonology) blood sugar diagnostic (BLOOD GLUCOSE [...] this visit. Review of Systems Objective BP 120/68 (BP Site: Left Arm, BP Position: Sitting, BP Cuff Size: Large Adult) Pulse 60 Temp 36.9 C (98.5 F) (Left Tympanic) Wt 88 kg (194 lb) BMI 31.31 kg/m Physical Exam Constitutional: Appearance: Normal appearance. HENT: Head: Normocephalic. Eyes: Conjunctiva/sclera: Conjunctivae normal. Cardiovascular: Rate and Rhythm: Normal rate and regular rhythm. Heart sounds: Normal heart sounds. Pulmonary: Effort: Pulmonary effort is normal. Breath sounds: Normal breath sounds. Skin: General: Skin is warm and dry. Comments: Right pretibial leg ulcer noted about 15mm diameter with clean edges, no slough or redness around wound. Clean pink base. Neurological: General: No focal deficit present. Mental Status: She is alert and oriented to person, place, and time. Psychiatric: Mood and Affect: Mood normal. Behavior: Behavior normal. Thought Content: Thought content normal. Judgment: Judgment normal. MINI MENTAL EXAM I. ORIENTATION (MAXIMUM SCORE 10) DATE (1) 1 YEAR(1) 1 MONTH(1) 1 DAY(1) 1 SEASON(1) 0 HOSPITAL(1) 1 FLOOR(1) 1 CITY(1) 1 COUNTY (1) 1 STATE(1) 1 II Immediate recall(Maximum score 3) BALL 1 FLAG 0 TREE 0 Attention and Calculation (Maximum score 5) a. Counting Backward b. Spelling Backward D 1 L 1 R 0 O 0 W 1 IV. Recall(Maximum score 9) Ball 1 Flag 0-got with hint Tree 0--got with hint V. Language(Maximum score 9) Naming Watch1 Pencil 1 Repetition 1 3 Stage Command 3 Reading 1 Writing 1 Copying 1 Final Score= 2330 Assessment and Plan Encounter Diagnosis ICD-10-CM 1. Urinary incontinence without sensory awareness N39.42 UA DIP, URINE (POC) URINALYSIS, WITH MICROSCOPIC URINE CULTURE URINALYSIS, WITH MICROSCOPIC 2. Memory deficits R41.3 Discussed concerns with daughter and patient.Treat acute illnesses. Further evaluation and treatment as indicated 3. Dysuria R30.0 UA DIP, URINE (POC) URINALYSIS, WITH MICROSCOPIC URINE CULTURE URINALYSIS, WITH MICROSCOPIC 4. Nocturia more than twice per night R35.1 UA DIP, URINE (POC) URINALYSIS, WITH MICROSCOPIC URINE CULTURE URINALYSIS, WITH MICROSCOPIC 5. Urinary urgency R39.15 UA DIP, URINE (POC) URINALYSIS, WITH MICROSCOPIC URINE CULTURE URINALYSIS, WITH MICROSCOPIC 6. Atrial flutter, unspecified type (HCC) I48.92 Management of meds per cardiology 7. Encounter for immunization Z23 TDAP PRINTED PHARMACY INSTRUCTIONS Above issues addressed with patient. Patient involved [...] as indicated. I spent a total of 49 minutes on the date of the service which included [id number] patient care, completing clinical documentation, obtaining and/or reviewing separately obtained history, performing a medically appropriate examination, counseling and educating the patient/family/caregiver, and ordering medications, tests, or procedures. Joon Lopez MD documented in this encounter [facility] 12-15-2023 Miscellaneous Notes Consults, office notes, and demographic faxed over to [facility] as requested. Patient notified that paperwork faxed. Patient voices understanding. Yuko Ordonez RN Consult placed, see below Patient's daughter Brooke calls and states that patient continues to have a lot of back pain. Daughter is asking if provider can write a referral to spine doctor and fax referral to [facility] [phone]. Please review and advise, Yuko Ordonez RN documented in this encounter [facility] 10-07-2023 Note HNO ID: [id number] Author: JOON LOPEZ MD Service: ? Author Type: Physician Type: Progress Notes Filed: 11/10/2023 13:30 Note Text: This note was created using [employer]. Subjective Keisha Red is a 78 year [...] Right shoulder s/p fall with reduction at [facility] Type II or unspecified type diabetes [...] hours as needed for wheezing/shortness of breath. 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 ([facility] pulmonology) blood sugar diagnostic (BLOOD GLUCOSE [...] Abs Lymph 1.00 - 4.00 k/uL 1.63 Mcdonough% % 6.1 Abs Mcdonough <0.87 k/uL 0.42 Eosin% % 4.6 (more content not included)... [facility] 09-30-2023 Miscellaneous Notes Below left on [...] asking for something to help. Patient uses [facility] for her pharmacy. Please advise documented in this encounter [facility] 09-23-2023 Note HNO ID: [id number] Author: Whitney Hammond APRN.FRONT DESK MONITOR Service: ? Author Type: Nurse Practitioner Type: [...] hours as needed for wheezing/shortness of breath. 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 Do all this for 180 days. triamcinolone acetonide (KENALOG) 0.1 % cream Apply 1 application to affected area three times daily as needed. For rash on extremities and leg budesonide-formoterol (SYMBICORT) 160-4.5 mcg/actuation inhaler Inhale 2 Puffs as instructed twice daily. (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 Agudelo Muscle Spasm Rotator Cuff Tear - 05/06/2011 Diabetes Mellitus Type 2, Controlled, Without Complications ([facility]) Hyperlipemia - 12/19/2010 Back Strain, recurrent [...] round, and reacti (more content not included)... [place] [id number] History of Present illness Narrative SUBJECTIVE Keisha [...] hours as needed for wheezing/shortness of breath. 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 Do all this for 180 days. triamcinolone acetonide (KENALOG) 0.1 % cream Apply 1 application to affected area three times daily as needed. For rash on extremities and leg budesonide-formoterol (SYMBICORT) 160-4.5 mcg/actuation inhaler Inhale 2 Puffs as instructed twice daily. (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 Agudelo Muscle Spasm Rotator Cuff Tear - 05/06/2011 Diabetes Mellitus Type 2, Controlled, Without Complications ([facility]) Hyperlipemia - 12/19/2010 Back Strain, recurrent [...] suspicious activity was identified. 09/23/2023 by Whitney Hammond APRN.CNP Medical Decision Making: Problems: Moderate: 2+ [...] improve, for Keep next scheduled appointment.. Whitney Hammond APRN-DOMINGO documented in this encounter [facility] 09-18-2023 Miscellaneous Notes Last office visit: 06/22/23 Next appointment scheduled: 09/23/23 Patient has been identified by name and date of : Yes Requested Prescriptions Pending Prescriptions Disp Refills albuterol HFA (PROAIR HFA) 90 mcg/actuation inhaler 1 Each 3 Sig: Inhale 2 Puffs as instructed every 4 hours as needed for wheezing/shortness of breath. 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 No need to notify patient. Mattie Mosley documented in this encounter [facility] 09-10-2023 Miscellaneous Notes Left a message with information listed below. Maddie Rojo LPN If her back pain is a 10 of 10 and not being helped with medications she should go to the emergency department for further evaluation and treatment. Patient calling to ask if provider gave an answer. Went over notes below from Trini Tang POLYGRAPH TECHNICIAN with understanding. Patient is going to call [facility] and discuss with them. Attempted to contact [...] the TENS unit electrodes to [facility], not sure if they can provide that [...] old & worn out. Pt uses [facility] in [place]. Please notify pt of response. Elvia Orellana LPN documented in this encounter [facility] 07-16-2023 Miscellaneous Notes ok Patient calling to request order for new glucometer. Her old one is no longer working. [facility] [place]. Patient has been identified by name and [...] 03/25/2022 6.0 Please advise. Thank you. Taylor Ruffin RN documented in this encounter [facility] 07-14-2023 Miscellaneous Notes Patient has [...] advise. Brooke Cooper documented in this encounter [facility] 06-22-2023 Miscellaneous Notes Faxed request to [employer] to have compliance report faxed to office today prior to OV. Sylwia Chang LPN Noted--make sure addressed when patient seen [...] using them. Patient has appointment with Dr. Lopez on 06/22/2023. Brooke wanted provider aware of what is going on since she knows that patient will not tell provider this. Patient is also seeing wound center for wound on left foot. Yuko Ordonez RN documented in this encounter [facility] 05-12-2023 Instructions Whitney Hammond APRN.DOMINGO - 05/12/2023 9:09 AM EDT Take [...] the Keflex, start doxycycline for infection. See emr specialist (foot doctor). documented in this encounter [facility] 05-12-2023 History of Present illness Narrative Images from the original note were not included. SUBJECTIVE Keisha Red is a 78 year old female here today for an ER follow up. Chief Complaint Patient presents with: Wound Check: 05/02/2023 left foot burn from a plate of hot chicken sliding of plate 2 week ago seen in [facility] ER on 05/09/23. Was treated with cephalexin 500mg every 6 hours. HPI Keisha eRd is a 78 year old female established patient of Joon Lopez MD. She presents today for an ER follow up. Seen in the ER at [facility] for an injury sustained on 05/02. [...] hours as needed for wheezing/shortness of breath. 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 Whitney Hammond APRN-DOMINGO documented in this encounter [facility] 05-06-2023 Miscellaneous Notes The following approved medication requests have been transmitted electronically. Requested Prescriptions Signed Prescriptions Disp Refills oxyCODONE-acetaminophen (PERCOCET) 5-325 mg tablet 21 tablet 0 Sig: Take 1 tablet by mouth every 8 hours as needed (for severe back pain) for up to 7 days. Authorizing Provider: JOON LOPEZ methocarbamol (ROBAXIN) 500 mg tablet 30 tablet 0 Sig: Take 1 tablet by mouth three times daily as needed (Pain/muscle spasms). Authorizing Provider: JOON LOPEZ MD Robaxin listed as not on formulary [...] the patient as she uses [facility] in [place] documented in this encounter [facility] 04-16-2023 History of Present illness [...] OAC, PPM, states seen last week. Cardiology: [facility] Bleeding difficulties: no DIABETES MELLITUS: [...] 03/25/2022 6.0 ) She reports going to [facility] for eye exams. Does not have a emr specialist currently. No complaints with her feet. Declines [...] hours as needed for wheezing/shortness of breath. 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 Type II or unspecified type diabetes [...] insulin (HCC) - ICD9: 250.00, ICD10: E11.9 Trini Tang APRN.REDEYE GUNNER Keep 3 mo follow up MD Trini Mcgraw APRN.REDEYE GUNNER Medical Decision Making: Problems: Low: Acute, uncomplicated illness or injury Risk: Moderate: Drug management Medical Decision Making Level: 3 - Low documented in this encounter [facility] 04-15-2023 Miscellaneous Notes Patient call [...] see provider sooner. Patient scheduled appointment with Trini tomorrow morning. Care advice reviewed with patient, [...] out of chair anyways. Protocols used: Chest [id number], Breathing [id number] documented in this encounter [facility] 04-03-2023 History of Present illness Narrative This note was created using [employer]. Jessica Red is a 78 year old female. [...] Now with back spasms. Did see Whitney Hammond and was prescribed percocet--has helped but makes [...] Right shoulder s/p fall with reduction at [facility] Type II or unspecified type diabetes [...] hours as needed for wheezing/shortness of breath. 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 Judgment: Judgment normal. Labs from [facility] ER evaluation reviewed. Assessment and Plan Encounter Diagnosis ICD-10-CM 1. Controlled type 2 diabetes mellitus without complication, without long-term current use of insulin ([facility]) E11.9 metFORMIN ER (GLUCOPHAGE XR) 500 mg [...] PANEL BASIC 7. Atrial flutter, unspecified type ([facility]) I48.92 8. Pacemaker Z95.0 9. Essential hypertension I10 10. Mild intermittent asthma without complication J45.20 11. RAMESH (obstructive sleep apnea) G47.33 12. 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 Anticoagulated on Coumadin Z79.01 14. Pulmonary hypertension ([facility]) I27.20 Follows with [facility] pulmonology Above issues addressed with [...] the date of the service which included [id number] patient care, completing clinical documentation, performing a medically appropriate examination, counseling and educating the patient/family/caregiver, ordering medications, tests, or procedures, and communicating results to the patient/family/caregiver. Joon Lopez MD documented in this encounter [facility] 03-31-2023 Instructions Whitney Hammond APRN.DOMINGO - 03/31/2023 9:27 AM EDT Rest. Ice or heat. Take muscle relaxer as needed. Can use tylenol or the percocet as needed. Do not exceed 3000 mg of tylenol in 24 hours. Try some gentle stretches. Update us with your appointment on Thursday, if still having a lot of issues then we can try a steroid. documented in this encounter [facility] 03-31-2023 History of Present illness Narrative Images from the original note were not included. SUBJECTIVE Keisha Red is a 78 year old female here today for acute concern. Chief Complaint Patient presents with: Neck Pain: right posterior neck for about 3 months HPI Keisha Red is a 78 year old female established patient of Joon Lopez MD who presents for some concerns of [...] hours as needed for wheezing/shortness of breath. 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 03/31/2023 by Whitney Hammond APRN.FRONT DESK MONITOR - OXYCODONE-ACETAMINOPHEN 5 MG-325 MG TABLET 3. [...] appointment.. ENEDINA Klein documented in this encounter [facility] 03-26-2023 Miscellaneous Notes Patient has [...] Taylor Ruffin RN documented in this encounter [facility] 12-26-2022 Miscellaneous Notes Electronic PA completed for cyclobenzaprine. This was approved form 12/12/22 to 12/27/23. documented in this encounter [facility] 12-26-2022 History of Present illness Narrative This note was created using NoteWriter. Subjective Keisha Red is a 77 year [...] Right shoulder s/p fall with reduction at [facility] Type II or unspecified type diabetes [...] hours as needed for wheezing/shortness of breath. 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 Joon Lopez MD documented in this encounter [facility] 12-04-2022 History of Present illness [...] hours as needed for wheezing/shortness of breath. 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 Type II or unspecified type diabetes [...] Daron Singh MD documented in this encounter [facility] 12-04-2022 Miscellaneous Notes noted, agree with urgent care Patient calling she is noticing she is voiding smaller amounts, and burning with urination and has frequency for several hours each day. Aware PCP is out of office today and patient can not make the appt time offered for POLYGRAPH TECHNICIAN. Advised patient that she can walk in at the [facility] for evaluation to see if she has UTI. Patient plans to do that today. documented in this encounter [facility] 11-20-2022 Miscellaneous Notes Patient has [...] Cecilia Rojo Pss documented in this encounter [facility] 09-15-2022 Miscellaneous Notes Last filled February. Uses med sparingly for severe pain. The following approved medication requests have been transmitted electronically. Requested Prescriptions Signed Prescriptions Disp Refills oxyCODONE-acetaminophen (PERCOCET) 5-325 mg tablet 21 tablet 0 Sig: Take 1 tablet by mouth every 8 hours as needed for pain for up to 7 days. Authorizing Provider: JOON LOPEZ MD Patient has been identified by name and date of : Yes Requested Prescriptions Pending Prescriptions Disp Refills oxyCODONE-acetaminophen (PERCOCET) 5-325 mg tablet Sig: Last filled February RX INSTRUCTIONS: had back muscle spasms last night bad. Patient aware RX will be sent to pharmacy. No need to notify patient. Omaira De Leon documented in this encounter [facility] 07-28-2022 Miscellaneous Notes Patient calling asking for new glucose meter, one she had stopped working. She does not know which meter is covered by her insurance. Pending generic meter, strips, lancets to file. Patient uses [facility] for her pharmacy. Aware PCP is out [...] Tamy Donis LPN documented in this encounter [facility] 07-01-2022 History of Present illness Narrative This note was created using [employer]. Subjective Keisha Red is a 77 year [...] Right shoulder s/p fall with reduction at [facility] Type II or unspecified type diabetes [...] hours as needed for wheezing/shortness of breath. 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 Joon Lopez MD documented in this encounter [facility] 06-17-2022 Miscellaneous Notes Daughter phoned to report patient is going back to [facility] ER. Reports something is not right. Daughter is on her way to patient's home. Check for ER notes for upcoming visit. Should return to ER if severe symptoms or concerns prior to visit with Joon Lopez MD. FYI: Pt's daughter Brooke called in to let you know pt went to ER last night 06-16-22 with confusion. Per daughter pt's urine was tested and there was no infection. Will keep apt tomorrow 06/18/[address] Lopez. Pt still not feeling well. Maddie Rojo LPN documented in this encounter [facility] 06-16-2022 Miscellaneous Notes Daughter calling, [...] AND [3] new-onset Protocols used: Confusion - [id number] documented in this encounter [facility] 05-13-2022 Miscellaneous Notes Noted. Xi Worley APRN.FRONT DESK MONITOR x3 attempt. Unable to reach patient. Contacted [facility] & confirmed with shipping technician patient picked up medication 05/11/22 @ [...] Xi Worley APRN.DOMINGO documented in this encounter [facility] 05-07-2022 Miscellaneous Notes See other TE. Curtis Yi LPN Can please let patient know that the chest xray did not show any pneumonia. Xi Worley APRN.DOMINGO Pt calling for results from CXR that was completed this am. Elvia Orellana LPN documented in this encounter [facility] 05-06-2022 Miscellaneous Notes See office notes. Xi Worley APRN.CNP Pt called in and states wheezing, coughing x 3 days. No apt available today with pcp/team/Int med. Apt booked with FP. Maddie Rojo LPN documented in this encounter [facility] 05-06-2022 Instructions Xi Worley APRN.CNP - 05/06/2022 9:05 AM EDT 1. Get the xray. 2. Start the prednisone -- 2 pills daily X 5 days. 3. Watch sugars. Let us know if getting high. 4. Push fluids. 5. Let us know if not improving or getting worse. documented in this encounter [facility] 05-06-2022 History of Present illness [...] Right shoulder s/p fall with reduction at [facility] Type II or unspecified type diabetes [...] hours as needed for wheezing/shortness of breath. 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 Xi Worley APRN.FRONT DESK MONITOR documented in this encounter [facility] 04-18-2022 Miscellaneous Notes Okayed Patient [...] Taniya Baig Pss documented in this encounter [facility] 03-25-2022 History of Present illness Narrative This note was created using [employer]. Subjective Keisha Red is a 77 year [...] Right shoulder s/p fall with reduction at [facility] Type II or unspecified type diabetes mellitus without mention of complication, not stated as uncontrolled Unspecified asthma(493.90) Unspecified essential hypertension Current Outpatient Medications Medication Sig albuterol HFA (PROAIR HFA) 90 mcg/actuation inhaler Inhale 2 Puffs as instructed every 4 hours as needed for wheezing/shortness of breath. 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 as usual and have managed by [facility]. Encounter for long-term current use of medication - ICD9: V58.69, ICD10: Z79.899 - CBC 6. Atrial flutter, unspecified type (HCC) - ICD9: 427.32, ICD10: I48.92 stable on meds Joon Lopez MD documented in this encounter [facility] 01-17-2022 History of Present illness Narrative This note was created using [employer]. Subjective Keisha Rde is a 76 year old female. Patient [...] Right shoulder s/p fall with reduction at [facility] Type II or unspecified type diabetes [...] hours as needed for wheezing/shortness of breath. 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 Subjective Keisha Red is a 76 year old female. Patient presents with: Recheck: 2 month follow up SUBJECTIVE: Keisha Red is a 76 year old year old lady here today for 2 month follow up appointment for review of medical conditions. Overall doing okay. Back pain with weather changes. Goes to [facility] for INRs. Not following with train crew member. Has not gotten COVID vaccine. Will see urologist in [place] next week. Will see eye doctor soon. [...] Right shoulder s/p fall with reduction at [facility] Type II or unspecified type diabetes mellitus without mention of complication, not stated as uncontrolled Unspecified asthma(493.90) Unspecified essential hypertension Current Outpatient Medications Medication Sig oxyCODONE-acetaminophen (PERCOCET) 5-325 mg tablet Take 5-325 mg by mouth twice daily. As needed albuterol HFA (PROAIR HFA) 90 mcg/actuation inhaler Inhale 2 Puffs as instructed every 4 hours as needed for wheezing/shortness of breath. 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) cyclobenzaprine (FLEXERIL) 10 mg tablet Take [...] - OXYCODONE-ACETAMINOPHEN 5 MG-325 MG TABLET Joon Lopez MD Medical Decision Making: Problems: Moderate: 2+ stable chronic illnesses Risk: Moderate: Drug management Medical Decision Making Level: 4 - Moderate documented in this encounter [facility] 09-29-2005 History of Past i llness Narrative Problem Noted Date Resolved Date Contact dermatitis and other eczema 09/29/2005 09/16/2021 Contact dermatitis and other eczema, due to unspecified cause 09/16/2021 documented as of this encounter (statuses as of 02/03/2022) [address]05-2005 History of Past illness Narrative* Problem Noted Date Resolved Date Contact dermatitis and other eczema 09/29/2005 09/16/2021 Contact dermatitis and other eczema, due to unspecified cause 09/16/2021 documented as of this encounter (statuses as of 03/31/2022) [address]2005 History of Past illness Narrative* Problem Noted Date Resolved Date Contact dermatitis and other eczema 09/29/2005 09/16/2021 Contact dermatitis and other eczema, due to unspecified cause 09/16/2021 documented as of this encounter (statuses as of 04/10/2022) [address]2005 History of Past illness Narrative* Problem Noted Date Resolved Date Contact dermatitis and other eczema 09/29/2005 09/16/2021 Contact dermatitis and other eczema, due to unspecified cause 09/16/2021 documented as of this encounter (statuses as of 04/18/2022) [place] [address]-05-2005 History of Past illness Narrative* Problem Noted Date Resolved Date Contact dermatitis and other eczema 09/29/2005 09/16/2021 Contact dermatitis and other eczema, due to unspecified cause 09/16/2021 documented as of this encounter (statuses as of 05/06/2022) [facility] History of Past illness Narrative* Problem Noted Date Resolved Date Contact dermatitis and other eczema 09/29/2005 09/16/2021 Contact dermatitis and other eczema, due to unspecified cause 09/16/2021 documented as of this encounter (statuses as of 05/06/2022) [facility] History of Past illness Narrative* Problem Noted Date Resolved Date Contact dermatitis and other eczema 09/29/2005 09/16/2021 Contact dermatitis and other eczema, due to unspecified cause 09/16/2021 documented as of this encounter (statuses as of 05/07/2022) [place] [address]05[address]2005 History of Past illness Narrative* Problem Noted Date Resolved Date Contact dermatitis and other eczema 09/29/2005 09/16/2021 Contact dermatitis and other eczema, due to unspecified cause 09/16/2021 documented as of this encounter (statuses as of 05/13/2022) [address] History of Past illness Narrative* Problem Noted Date Resolved Date Contact dermatitis and other eczema 09/29/2005 09/16/2021 Contact dermatitis and other eczema, due to unspecified cause 09/16/2021 documented as of this encounter (statuses as of 06/17/2022) [address]2005 History of Past illness Narrative* Problem Noted Date Resolved Date Contact dermatitis and other eczema 09/29/2005 09/16/2021 Contact dermatitis and other eczema, due to unspecified cause 09/16/2021 documented as of this encounter (statuses as of 07/28/2022) [address]2005 History of Past illness Narrative* Problem Noted Date Resolved Date Contact dermatitis and other eczema 09/29/2005 09/16/2021 Contact dermatitis and other eczema, due to unspecified cause 09/16/2021 documented as of this encounter (statuses as of 08/21/2022) [address]2005 History of Past illness Narrative* Problem Noted Date Resolved Date Contact dermatitis and other eczema 09/29/2005 09/16/2021 Contact dermatitis and other eczema, due to unspecified cause 09/16/2021 documented as of this encounter (statuses as of 09/16/2022) [facility] History of Past illness Narrative* Problem Noted Date Resolved Date Contact dermatitis and other eczema 09/29/2005 09/16/2021 Contact dermatitis and other eczema, due to unspecified cause 09/16/2021 documented as of this encounter (statuses as of 11/20/2022) [place] [address]05[address]2005 History of Past illness Narrative* Problem Noted Date Resolved Date Contact dermatitis and other eczema 09/29/2005 09/16/2021 Contact dermatitis and other eczema, due to unspecified cause 09/16/2021 documented as of this encounter (statuses as of 12/04/2022) [address]2005 History of Past illness Narrative* Problem Noted Date Resolved Date Contact dermatitis and other eczema 09/29/2005 09/16/2021 Contact dermatitis and other eczema, due to unspecified cause 09/16/2021 documented as of this encounter (statuses as of 12/04/2022) [place] [address]-05-2005 History of Past illness Narrative* Problem Noted Date Resolved Date Contact dermatitis and other eczema 09/29/2005 09/16/2021 Contact dermatitis and other eczema, due to unspecified cause 09/16/2021 documented as of this encounter (statuses as of 12/26/2022) [place] [address]-05-2005 History of Past illness Narrative* Problem Noted Date Resolved Date Contact dermatitis and other eczema 09/29/2005 09/16/2021 Contact dermatitis and other eczema, due to unspecified cause 09/16/2021 documented as of this encounter (statuses as of 01/26/2023) [address]05-2005 History of Past illness Narrative* Problem Noted Date Resolved Date Contact dermatitis and other eczema 09/29/2005 09/16/2021 Contact dermatitis and other eczema, due to unspecified cause 09/16/2021 documented as of this encounter (statuses as of 03/27/2023) [address]05-2005 History of Past illness Narrative* Problem Noted Date Resolved Date Contact dermatitis and other eczema 09/29/2005 09/16/2021 Contact dermatitis and other eczema, due to unspecified cause 09/16/2021 documented as of this encounter (statuses as of 03/31/2023) [facility]12-05-2005 History of Past illness Narrative* Problem Noted Date Resolved Date Contact dermatitis and other eczema 09/29/2005 09/16/2021 Contact dermatitis and other eczema, due to unspecified cause 09/16/2021 documented as of this encounter (statuses as of 04/16/2023) [facility]-05-2005 History of Past illness Narrative* Problem Noted Date Resolved Date Contact dermatitis and other eczema 09/29/2005 09/16/2021 Contact dermatitis and other eczema, due to unspecified cause 09/16/2021 documented as of this encounter (statuses as of 04/16/2023) [facility]-05-2005 History of Past illness Narrative* Problem Noted Date Diagnosed Date Resolved Date Contact dermatitis and other eczema 09/29/2005 09/16/2021 Contact dermatitis and other eczema, due to unspecified cause 09/16/2021 documented as of this encounter (statuses as of 05/04/2023) [place] [address]05-2005 History of Past illness Narrative* Problem Noted Date Diagnosed Date Resolved Date Contact dermatitis and other eczema 09/29/2005 09/16/2021 Contact dermatitis and other eczema, due to unspecified cause 09/16/2021 documented as of this encounter (statuses as of 05/12/2023) [place] [address]05-2005 History of Past illness Narrative* Problem Noted Date Diagnosed Date Resolved Date Contact dermatitis and other eczema 09/29/2005 09/16/2021 Contact dermatitis and other eczema, due to unspecified cause 09/16/2021 documented as of this encounter (statuses as of 06/03/2023) [facility]-05-2005 History of Past illness Narrative* Problem Noted Date Diagnosed Date Resolved Date Contact dermatitis and other eczema 09/29/2005 09/16/2021 Contact dermatitis and other eczema, due to unspecified cause 09/16/2021 documented as of this encounter (statuses as of 06/23/2023) [facility]-2005 History of Past illness Narrative* Problem Noted Date Diagnosed Date Resolved Date Contact dermatitis and other eczema 09/29/2005 09/16/2021 Contact dermatitis and other eczema, due to unspecified cause 09/16/2021 documented as of this encounter (statuses as of 07/15/2023) [facility]-2005 History of Past illness Narrative* Problem Noted Date Diagnosed Date Resolved Date Contact dermatitis and other eczema 09/29/2005 09/16/2021 Contact dermatitis and other eczema, due to unspecified cause 09/16/2021 documented as of this encounter (statuses as of 07/17/2023) [facility]2005 History of Past illness Narrative* Problem Noted Date Diagnosed Date Resolved Date Contact dermatitis and other eczema 09/29/2005 09/16/2021 Contact dermatitis and other eczema, due to unspecified cause 09/16/2021 documented as of this encounter (statuses as of 09/10/2023) [address]05-2005 History of Past illness Narrative* Problem Noted Date Diagnosed Date Resolved Date Contact dermatitis and other eczema 09/29/2005 09/16/2021 Contact dermatitis and other eczema, due to unspecified cause 09/16/2021 documented as of this encounter (statuses as of 09/18/2023) [address]05-2005 History of Past illness Narrative* Problem Noted Date Diagnosed Date Resolved Date Contact dermatitis and other eczema 09/29/2005 09/16/2021 Obesity, unspecified 023 Last Assessment & Plan: Assessment: Body mass index is 30.11 kg/m . Contact dermatitis and other eczema, due to unspecified cause 09/16/2021 Dizziness and giddiness 08/27 documented as of this encounter (statuses as of 09/23/2023) [facility]12-[facility]-2005 History of Past illness Narrative* Problem Noted Date Diagnosed Date Resolved Date Contact dermatitis and other eczema 09/29/2005 09/16/2021 Obesity, unspecified 023 Last Assessment & Plan: Assessment: Body mass index is 30.11 kg/m . Contact dermatitis and other eczema, due to unspecified cause 09/16/2021 Dizziness and giddiness 08/27 documented as of this encounter (statuses as of 09/30/2023) [facility]2005 History of Past illness Narrative* Problem Noted Date Diagnosed Date Resolved Date Contact dermatitis and other eczema 09/29/2005 09/16/2021 Obesity, unspecified 023 Last Assessment & Plan: Assessment: Body mass index is 30.11 kg/m . Contact dermatitis and other eczema, due to unspecified cause 09/16/2021 Dizziness and giddiness 08/27 documented as of this encounter (statuses as of 12/15/2023) [facility]-05-2005 History of Past illness Narrative* Problem Noted Date Diagnosed Date Resolved Date Contact dermatitis and other eczema 09/29/2005 09/16/2021 Obesity, unspecified 023 Last Assessment & Plan: Assessment: Body mass index is 30.11 kg/m . Contact dermatitis and other eczema, due to unspecified cause 09/16/2021 Dizziness and giddiness 08/27 documented as of this encounter (statuses as of 01/06/2024) [facility]-2005 History of Past illness Narrative* Problem Noted Date Diagnosed Date Resolved Date Contact dermatitis and other eczema 09/29/2005 09/16/2021 Obesity, unspecified 023 Last Assessment & Plan: Assessment: Body mass index is 30.11 kg/m . Contact dermatitis and other eczema, due to unspecified cause 09/16/2021 Dizziness and giddiness 08/27 documented as of this encounter (statuses as of 01/29/2024) [facility] No data available for this section [facility] Evaluation note* Diagnosis Controlled type 2 diabetes mellitus [...] ligament, initial encounter documented in this encounter [facility] note* Diagnosis Controlled type 2 [...] ligament, initial encounter [facility] this encounter [facility] [place] [facility]* Diagnosis Diabetes mellitus type 2, controlled, [...] Back strain, sequela documented in this encounter [facility] [place] [facility]* Diagnosis Controlled type 2 diabetes mellitus without complication, without long-term current use of insulin (HCC) [facility] [place] [facility]* Diagnosis Mild intermittent asthma with acute exacerbation- Primary Unspecified asthma, with exacerbation Viral upper respiratory tract infection Acute upper respiratory infections of unspecified site [facility] [place] [facility]* Diagnosis COVID-19 virus infection- Primary Diarrhea of infectious origin Diarrhea of presumed infectious origin Severe low back pain Lumbago DDD (degenerative disc disease), lumbar Degeneration of lumbar or lumbosacral intervertebral disc Acute pain of left knee Sprain of left knee, unspecified ligament, initial encounter [facility] [place] [facility]* Diagnosis DDD (degenerative disc disease), lumbar Degeneration of lumbar or lumbosacral intervertebral disc Acute pain of left knee Sprain of left knee, unspecified ligament, initial encounter Severe low back pain Lumbago [facility] [place] [facility]* Diagnosis Urinary frequency- Primary [facility] [place] [facility]* Diagnosis Controlled type 2 diabetes mellitus [...] malignant neoplasms, colon [facility] [place] [facility]* Diagnosis Strain of neck muscle, initial encounter- Primary Severe low back pain Lumbago DDD (degenerative disc disease), lumbar Degeneration of lumbar or lumbosacral intervertebral disc Encounter for therapeutic drug monitoring [facility] [place] [facility]* Diagnosis Back strain, subsequent encounter- Primary [...] of insulin (HCC) [facility] Diagnosis Controlled type 2 [...] pulmonary heart diseases [facility] Diagnosis Cellulitis of foot- Primary Cellulitis and abscess of foot, except toes Partial thickness burn of left foot, subsequent encounter Controlled type 2 diabetes mellitus without complication, without long-term current use of insulin (HCC) [facility] Back strain, sequela Severe low back pain Lumbago DDD (degenerative disc disease), lumbar Degeneration of lumbar or lumbosacral intervertebral disc [facility] Diagnosis Diabetes mellitus with no complication (HCC)- Primary Type II or unspecified type diabetes mellitus without mention of complication, not stated as uncontrolled [facility] Diagnosis DDD (degenerative disc disease), lumbar Degeneration of lumbar or lumbosacral intervertebral disc Back Strain, recurrent Sprain of unspecified site of back [facility] [place] [facility]* Diagnosis Mild intermittent asthma without complication Unspecified asthma [facility] Diagnosis Severe low back pain- Primary [...] of insulin (HCC) [facility] Diagnosis Severe low back pain- Primary Lumbago DDD (degenerative disc disease), lumbar Degeneration of lumbar or lumbosacral intervertebral disc [facility] [place] [facility]* Diagnosis Urinary incontinence without sensory awareness- Primary Incontinence without sensory awareness Memory deficits Memory loss Dysuria Nocturia more than twice per night Urinary urgency Urgency of urination Atrial flutter, unspecified type ([facility]) Encounter for immunization Need for other specified prophylactic vaccination against single bacterial disease documented in this encounter [facility] [place] [facility]* Diagnosis Near syncope- Primary Syncope and collapse Urinary incontinence without sensory awareness Incontinence without sensory awareness Persistent disorder of initiating or maintaining sleep Hydronephrosis, right Hydronephrosis Dehydration [facility] [place] [facility]* Diagnosis Asymptomatic postmenopausal state- Primary Screening for osteoporosis Special screening for osteoporosis Closed fracture of elbow, unspecified laterality, sequela [facility] [place] [facility]* Diagnosis Controlled type 2 diabetes mellitus without complication, without long-term current use of insulin ([facility])- Primary Loose stools Abnormal feces Cognitive impairment Unspecified persistent mental disorders due to conditions classified elsewhere Anticoagulated on Coumadin Encounter for therapeutic drug monitoring Atrial flutter, unspecified type ([facility]) Vitamin D deficiency Unspecified vitamin D deficiency Encounter for therapeutic drug monitoring [facility] [place] [facility]* Diagnosis B12 deficiency- Primary Other B-complex deficiencies Hypomagnesemia Disorders of magnesium metabolism Vitamin D deficiency Unspecified vitamin D deficiency documented in this encounter [facility] [place] [facility]* Diagnosis Hallucinations, unspecified- Primary Generalized weakness Other malaise and fatigue [facility] [place] [facility]* Diagnosis Severe low back pain- Primary Lumbago DDD (degenerative disc disease), lumbar Degeneration of lumbar or lumbosacral intervertebral disc documented in this encounter [facility] [place] [facility]* Diagnosis Rib pain on right side Chest pain, unspecified Severe low back pain Lumbago DDD (degenerative disc disease), lumbar Degeneration of lumbar or lumbosacral intervertebral disc [facility] [place] [facility]* Diagnosis HYPERTENSION NOS- Primary Unspecified essential hypertension DM w/o complication type II Type II or unspecified type diabetes mellitus without mention of complication, not stated as uncontrolled ASTHMA UNSPECIFIED Unspecified asthma Trigger finger, left Trigger finger (acquired) Knee pain, right Pain in joint, lower leg Pre-operative examination- Primary Preoperative examination, unspecified Bilateral carpal tunnel syndrome Carpal tunnel syndrome Essential hypertension Unspecified essential hypertension Mixed hyperlipidemia Atrial flutter, unspecified type (HCC) Mild intermittent asthma without complication Unspecified asthma RAMESH (obstructive sleep apnea) Obstructive sleep apnea (adult) (pediatric) Pacemaker Cardiac pacemaker in situ Controlled type 2 diabetes mellitus without complication, without long-term current use of insulin (HCC) Class 1 obesity due to excess calories with body mass index (BMI) of 30.0 to 30.9 in adult, unspecified whether serious comorbidity present Rib pain on right side- Primary Chest pain, unspecified Laceration of scalp, sequela Acute cystitis without hematuria Acute cystitis Severe low back pain Lumbago DDD (degenerative disc disease), lumbar Degeneration of lumbar or lumbosacral intervertebral disc Acute pain of left knee Sprain of left knee, unspecified ligament, initial encounter Cognitive impairment Unspecified persistent mental disorders due to conditions classified elsewhere Memory deficit Memory loss [facility] [place] [facility]* Diagnosis HYPERTENSION NOS- Primary Unspecified essential hypertension DM w/o complication type II Type II or unspecified type diabetes mellitus without mention of complication, not stated as uncontrolled ASTHMA UNSPECIFIED Unspecified asthma Trigger finger, left Trigger finger (acquired) Knee pain, right Pain in joint, lower leg Pre-operative examination- Primary Preoperative examination, unspecified Bilateral carpal tunnel syndrome Carpal tunnel syndrome Essential hypertension Unspecified essential hypertension Mixed hyperlipidemia Atrial flutter, unspecified type (HCC) Mild intermittent asthma without complication Unspecified asthma RAMESH (obstructive sleep apnea) Obstructive sleep apnea (adult) (pediatric) Pacemaker Cardiac pacemaker in situ Controlled type 2 diabetes mellitus without complication, without long-term current use of insulin (HCC) Class 1 obesity due to excess calories with body mass index (BMI) of 30.0 to 30.9 in adult, unspecified whether serious comorbidity present Confusion- Primary Unspecified psychosis Severe low back pain Lumbago Memory deficit Memory loss Controlled type 2 diabetes mellitus without complication, without long-term current use of insulin (HCC) Pacemaker Cardiac pacemaker in situ [facility] [place] [facility]* Diagnosis HYPERTENSION NOS- Primary Unspecified essential hypertension DM w/o complication type II Type II or unspecified type diabetes mellitus without mention of complication, not stated as uncontrolled ASTHMA UNSPECIFIED Unspecified asthma Trigger finger, left Trigger finger (acquired) Knee pain, right Pain in joint, lower leg Pre-operative examination- Primary Preoperative examination, unspecified Bilateral carpal tunnel syndrome Carpal tunnel syndrome Essential hypertension Unspecified essential hypertension Mixed hyperlipidemia Atrial flutter, unspecified type (HCC) Mild intermittent asthma without complication Unspecified asthma RAMESH (obstructive sleep apnea) Obstructive sleep apnea (adult) (pediatric) Pacemaker Cardiac pacemaker in situ Controlled type 2 diabetes mellitus without complication, without long-term current use of insulin (HCC) Class 1 obesity due to excess calories with body mass index (BMI) of 30.0 to 30.9 in adult, unspecified whether serious comorbidity present Moderate persistent asthma without complication Unspecified asthma documented in this encounter [facility] note* Diagnosis HYPERTENSION NOS- Primary Unspecified essential hypertension DM w/o complication type II Type II or unspecified type diabetes mellitus without mention of complication, not stated as uncontrolled ASTHMA UNSPECIFIED Unspecified asthma Trigger finger, left Trigger finger (acquired) Knee pain, right Pain in joint, lower leg Pre-operative examination- Primary Preoperative examination, unspecified Bilateral carpal tunnel syndrome Carpal tunnel syndrome Essential hypertension Unspecified essential hypertension Mixed hyperlipidemia Atrial flutter, unspecified type (HCC) Mild intermittent asthma without complication Unspecified asthma RAMESH (obstructive sleep apnea) Obstructive sleep apnea (adult) (pediatric) Pacemaker Cardiac pacemaker in situ Controlled type 2 diabetes mellitus without complication, without long-term current use of insulin ([facility]) Class 1 obesity due to excess calories with body mass index (BMI) of 30.0 to 30.9 in adult, unspecified whether serious comorbidity present Rib pain on right side Chest pain, unspecified Severe low back pain Lumbago DDD (degenerative disc disease), lumbar Degeneration of lumbar or lumbosacral intervertebral disc documented in this encounter [facility] note* Diagnosis HYPERTENSION NOS- Primary Unspecified essential hypertension DM w/o complication type II Type II or unspecified type diabetes mellitus without mention of complication, not stated as uncontrolled ASTHMA UNSPECIFIED Unspecified asthma Trigger finger, left Trigger finger (acquired) Knee pain, right Pain in joint, lower leg Pre-operative examination- Primary Preoperative examination, unspecified Bilateral carpal tunnel syndrome Carpal tunnel syndrome Essential hypertension Unspecified essential hypertension Mixed hyperlipidemia Atrial flutter, unspecified type (HCC) Mild intermittent asthma without complication Unspecified asthma RAMESH (obstructive sleep apnea) Obstructive sleep apnea (adult) (pediatric) Pacemaker Cardiac pacemaker in situ Controlled type 2 diabetes mellitus without complication, without long-term current use of insulin (HCC) Class 1 obesity due to excess calories with body mass index (BMI) of 30.0 to 30.9 in adult, unspecified whether serious comorbidity present Viral upper respiratory tract infection Acute upper respiratory infections of unspecified site documented in this encounter [facility] note* Diagnosis HYPERTENSION NOS- Primary Unspecified essential hypertension DM w/o complication type II Type II or unspecified type diabetes mellitus without mention of complication, not stated as uncontrolled ASTHMA UNSPECIFIED Unspecified asthma Trigger finger, left Trigger finger (acquired) Knee pain, right Pain in joint, lower leg Pre-operative examination- Primary Preoperative examination, unspecified Bilateral carpal tunnel syndrome Carpal tunnel syndrome Essential hypertension Unspecified essential hypertension Mixed hyperlipidemia Atrial flutter, unspecified type (HCC) Mild intermittent asthma without complication Unspecified asthma RAMESH (obstructive sleep apnea) Obstructive sleep apnea (adult) (pediatric) Pacemaker Cardiac pacemaker in situ Controlled type 2 diabetes mellitus without complication, without long-term current use of insulin (HCC) Class 1 obesity due to excess calories with body mass index (BMI) of 30.0 to 30.9 in adult, unspecified whether serious comorbidity present Cognitive impairment, mild, so stated- Primary Mild cognitive impairment, so stated Urge incontinence Apathy Demoralization and apathy Moderate episode of recurrent major depressive disorder (HCC) Controlled type 2 diabetes mellitus without complication, without long-term current use of insulin (HCC) documented in this encounter [facility] note* Diagnosis HYPERTENSION NOS- Primary Unspecified essential hypertension DM w/o complication type II Type II or unspecified type diabetes mellitus without mention of complication, not stated as uncontrolled ASTHMA UNSPECIFIED Unspecified asthma Trigger finger, left Trigger finger (acquired) Knee pain, right Pain in joint, lower leg Pre-operative examination- Primary Preoperative examination, unspecified Bilateral carpal tunnel syndrome Carpal tunnel syndrome Essential hypertension Unspecified essential hypertension Mixed hyperlipidemia Atrial flutter, unspecified type (HCC) Mild intermittent asthma without complication Unspecified asthma RAMESH (obstructive sleep apnea) Obstructive sleep apnea (adult) (pediatric) Pacemaker Cardiac pacemaker in situ Controlled type 2 diabetes mellitus without complication, without long-term current use of insulin (HCC) Class 1 obesity due to excess calories with body mass index (BMI) of 30.0 to 30.9 in adult, unspecified whether serious comorbidity present Urinary frequency- Primary Acute UTI Urinary tract infection, site not specified documented in this encounter [facility] for referral (narrative)* Diagnostic Procedure Only (Routine) - Pending Review Specialty Diagnoses / Procedures Referred By Aminata t Referred To Contact XR IMAGING Diagnoses Asymptomatic postmenopausal state Screening for osteoporosis Closed fracture of elbow, unspecified laterality, sequela Procedures DXA-AXIAL SKELETON Trini Tang APRN.[employer] [address] [place] [address] [place] [address] Referral ID Status Reason Start Date Expiration Date Visits Requested Visits Authorized [id number] Pending Review Auto-Generat ed Referral 03/18/2024 04/16/2025 1 1 [facility] for visit Narrative* Diagnostic Procedure Only (Routine) - Closed Specialty Diagnoses / Procedures Referred By Contac t Referred To Contact Radiology / [facility] Diagnoses Acute upper respiratory infection, unspecified ML Procedures RADIOLOGIC EXAM CHEST 2 VIEWS XR CHEST Xi Worley APRN.[employer] [address] [place] [address] [facility] [address] [place] [address] Referral ID Status Reason Start Date Expiration Date Visits Re quested Visits Authorized [id number] Closed 05/06/2022 10/25/2022 1 1 [facility] Summary Purpose Family History No Family History Records Found No data available for this section No Family History Records FoundNo Family History Records Found Advance Directives No Advanced Directives Records FoundDocuments on File Type Date Recorded 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 Advance Directive(s) 01/23/2021 8:35 AM Advance Directive(s) 01/11/2021 11:10 AM Reason for Referral Specialty Diagnoses / Procedures Referred By Contac t Referred To Contact Diagnoses Back strain, sequela Joon Lopez MD [address] [place] [address] Referral ID Status Reason Start Date Expiration Date V isits Requested Visits Authorized [id number] Authorized 12/12/2022 12/27/2023 1 1 Specialty Diagnoses / Procedures Referred By Contac t Referred To Contact [facility] Diagnoses Back strain, subsequent encounter Muscle spasm Back strain, sequela Procedures CONSULT TO PHYSICAL THERAPY PHYSICAL THERAPY EVALUATION HIGH COMPLEX 45 MINS Trini Tang, RN ELIGIBILITY.[facility] [address] [place] [address] [facility] [address] [place] [id number] Referral ID Status Reason Start Date Expiration Date Visits Requested Visits Authorized [id number] Pending Review Auto-Generat ed Referral 04/16/2023 04/15/2024 1 1 Specialty Diagnoses / Procedures Referred By Contac t Referred To Contact [facility] Diagnoses Mild intermittent asthma without complication Procedures SPIROMETRY - BASELINE AND POST DILATOR BRNCDILAT RSPSE SPMTRY PRE&POST-BRNCDILAT ADMN Trini Tang, RN ELIGIBILITY.[facility] [address] [place] [address] Respiratory [facility] [address] [place] [id number] Referral ID Status Reason Start Date Expiration Date Visits Requested Visits Authorized [id number] Pending Review Auto-Generat ed Referral 04/16/2023 05/15/2024 1 1 Specialty Diagnoses / Procedures Referred By Contac t Referred To Contact Podiatry Diagnoses Cellulitis of foot Partial thickness burn of left foot, subsequent encounter Controlled type 2 diabetes mellitus without complication, without long-term current use of insulin (HCC) Procedures CONSULT TO PODIATRY OFFICE/OUTPATIENT [facility] 60-74 MINUTES Whitney Hammond, RN ELIGIBILITY.[facility] [address] [place] [address] Referral ID Status Reason Start Date Expiration Date Visits Requested Visits Authorized [id number] Authorized PCP Requested Referral 05/12/2023 05/11/2024 1 1 Specialty Diagnoses / Procedures Referred By Contac t Referred To Contact [facility] Diagnoses Severe low back pain DDD (degenerative disc disease), lumbar Procedures CONSULT TO [facility] OFFICE/OUTPATIENT [facility] 60 MINUTES Trini Tang, RN ELIGIBILITY.[facility] [address] [place] [address] Referral ID Status Reason Start Date Expiration Date Visits Requested Visits Authorized [id number] Pending Review PCP Requested Referral 12/14/2023 12/13/2024 1 1 Specialty Diagnoses / Procedures Referred By Contac t Referred To Contact Pain Management Diagnoses Severe low back pain DDD (degenerative disc disease), lumbar Procedures CONSULT TO PAIN MGT OFFICE/OUTPATIENT [facility] 60 MINUTES Trini Tang APRN.[facility] [address] [place] [address] Referral ID Status Reason Start Date Expiration Date Visits Requested Visits Authorized [id number] Pending Review PCP Requested Referral 06/02/2024 06/01/2025 1 1 Specialty Diagnoses / Procedures Referred By Contac t Referred To Contact Gerontology / INTERNAL MEDICINE Diagnoses Cognitive impairment Memory deficit Procedures CONSULT TO GERIATRICS OFFICE/OUTPATIENT [facility] [place] [address] [place] [address] Xochitl Castrejon MD [address] [place] [id number] Referral ID Status Reason Start Date Expiration Date Visits Requested Visits Authorized [id number] Authorized PCP Requested Referral 05/13/2024 10/25/2024 1 1 Specialty Diagnoses / Procedures Referred By Contac t Referred To Contact Joon Lopez MD [address] [place] [id number] Referral ID Status Reason Start Date Expiration Date V isits Requested Visits Authorized [id number] Authorized 04/27/2024 05/12/2025 1 1 Specialty Diagnoses / Procedures Referred By Contac t Referred To Contact [facility] IMAGING Diagnoses Cognitive impairment, mild, so stated Procedures MRI 3D POST PROCESSING 3D RENDERING W/INTERP&POSTPROC DIFF WORK STATION Xochitl Castrejon MD [address] [place] [id number] [place] [address] Referral ID Status Reason Start Date Expiration Date Visits Requested Visits Authorized [id number] New Request Auto-Generat ed Referral 08/03/2024 09/02/2025 1 1 Specialty Diagnoses / Procedures Referred By Contac t Referred To Contact [facility] IMAGING Diagnoses Cognitive impairment, mild, so stated Procedures MRI BRAIN W QUANT WO IVCON MRI BRAIN BRAIN STEM W/O CONTRAST MATERIAL Xochitl Castrejon MD [address] [place], [place] [address], [place] [address] [place] [address] Referral ID Status Reason Start Date Expiration Date Visits Requested Visits Authorized [id number] New Request Auto-Generat ed Referral 08/03/2024 09/02/2025 1 1 Additional Source Comments INFORMATION SOURCE (unrecogn ized section and content) DATE CREATED AUTHOR 2021 [facility] DATE CREATED AUTHOR AUTHOR'S ORGANIZ ATION 02/04/2024 [facility] ([place]) DATE CREATED AUTHOR AUTHOR'S ORGANIZ ATION 08/19/2024 [facility] Source Comments (unrecognize d section and content) In the event this informatio n is protected by the Federal Confidentiality of Alcohol and Drug Abuse Patient Records regulations: The Federal rules restrict any use of the information to criminally investigate or prosecute any alcohol or drug abuse patient.[facility] the event this information is protected by the Federal Confidentiality of Alcohol and Drug Abuse Patient Records regulations: The Federal rules restrict any use of the information to criminally investigate or prosecute any alcohol or drug abuse patient.[facility] CenterIn the event this information is protected by the Federal Confidentiality of Alcohol and Drug Abuse Patient Records regulations: The Federal rules restrict any use of the information to criminally investigate or prosecute any alcohol or drug abuse patient.[facility] CenterIn the event this information is protected by the Federal Confidentiality of Alcohol and Drug Abuse Patient Records regulations: The Federal rules restrict any use of the information to criminally investigate or prosecute any alcohol or drug abuse patient.[facility] CenterIn the event this information is protected by the Federal Confidentiality of Alcohol and Drug Abuse Patient Records regulations: The Federal rules restrict any use of the information to criminally investigate or prosecute any alcohol or drug abuse patient.[facility] CenterIn the event this information is protected by the Federal Confidentiality of Alcohol and Drug Abuse Patient Records regulations: The Federal rules restrict any use of the information to criminally investigate or prosecute any alcohol or drug abuse patient.[facility] CenterIn the event this information is protected by the Federal Confidentiality of Alcohol and Drug Abuse Patient Records regulations: The Federal rules restrict any use of the information to criminally investigate or prosecute any alcohol or drug abuse patient.[facility] CenterIn the event this information is protected by the Federal Confidentiality of Alcohol and Drug Abuse Patient Records regulations: The Federal rules restrict any use of the information to criminally investigate or prosecute any alcohol or drug abuse patient.[facility] CenterIn the event this information is protected by the Federal Confidentiality of Alcohol and Drug Abuse Patient Records regulations: The Federal rules restrict any use of the information to criminally investigate or prosecute any alcohol or drug abuse patient.[facility] CenterIn the event this information is protected by the Federal Confidentiality of Alcohol and Drug Abuse Patient Records regulations: The Federal rules restrict any use of the information to criminally investigate or prosecute any alcohol or drug abuse patient.[facility] CenterIn the event this information is protected by the Federal Confidentiality of Alcohol and Drug Abuse Patient Records regulations: The Federal rules restrict any use of the information to criminally investigate or prosecute any alcohol or drug abuse patient.[facility] CenterIn the event this information is protected by the Federal Confidentiality of Alcohol and Drug Abuse Patient Records regulations: The Federal rules restrict any use of the information to criminally investigate or prosecute any alcohol or drug abuse patient.[facility] CenterIn the event this information is protected by the Federal Confidentiality of Alcohol and Drug Abuse Patient Records regulations: The Federal rules restrict any use of the information to criminally investigate or prosecute any alcohol or drug abuse patient.[facility] CenterIn the event this information is protected by the Federal Confidentiality of Alcohol and Drug Abuse Patient Records regulations: The Federal rules restrict any use of the information to criminally investigate or prosecute any alcohol or drug abuse patient.[facility] CenterIn the event this information is protected by the Federal Confidentiality of Alcohol and Drug Abuse Patient Records regulations: The Federal rules restrict any use of the information to criminally investigate or prosecute any alcohol or drug abuse patient.[facility] CenterIn the event this information is protected by the Federal Confidentiality of Alcohol and Drug Abuse Patient Records regulations: The Federal rules restrict any use of the information to criminally investigate or prosecute any alcohol or drug abuse patient.[facility] CenterIn the event this information is protected by the Federal Confidentiality of Alcohol and Drug Abuse Patient Records regulations: The Federal rules restrict any use of the information to criminally investigate or prosecute any alcohol or drug abuse patient.[facility] CenterIn the event this information is protected by the Federal Confidentiality of Alcohol and Drug Abuse Patient Records regulations: The Federal rules restrict any use of the information to criminally investigate or prosecute any alcohol or drug abuse patient.[facility] CenterIn the event this information is protected by the Federal Confidentiality of Alcohol and Drug Abuse Patient Records regulations: The Federal rules restrict any use of the information to criminally investigate or prosecute any alcohol or drug abuse patient.[facility] CenterIn the event this information is protected by the Federal Confidentiality of Alcohol and Drug Abuse Patient Records regulations: The Federal rules restrict any use of the information to criminally investigate or prosecute any alcohol or drug abuse patient.[facility] CenterIn the event this information is protected by the Federal Confidentiality of Alcohol and Drug Abuse Patient Records regulations: The Federal rules restrict any use of the information to criminally investigate or prosecute any alcohol or drug abuse patient.[facility] CenterIn the event this information is protected by the Federal Confidentiality of Alcohol and Drug Abuse Patient Records regulations: The Federal rules restrict any use of the information to criminally investigate or prosecute any alcohol or drug abuse patient.[facility] CenterIn the event this information is protected by the Federal Confidentiality of Alcohol and Drug Abuse Patient Records regulations: The Federal rules restrict any use of the information to criminally investigate or prosecute any alcohol or drug abuse patient.[facility] CenterIn the event this information is protected by the Federal Confidentiality of Alcohol and Drug Abuse Patient Records regulations: The Federal rules restrict any use of the information to criminally investigate or prosecute any alcohol or drug abuse patient.[facility] CenterIn the event this information is protected by the Federal Confidentiality of Alcohol and Drug Abuse Patient Records regulations: The Federal rules restrict any use of the information to criminally investigate or prosecute any alcohol or drug abuse patient.[facility] CenterIn the event this information is protected by the Federal Confidentiality of Alcohol and Drug Abuse Patient Records regulations: The Federal rules restrict any use of the information to criminally investigate or prosecute any alcohol or drug abuse patient.[facility] CenterIn the event this information is protected by the Federal Confidentiality of Alcohol and Drug Abuse Patient Records regulations: The Federal rules restrict any use of the information to criminally investigate or prosecute any alcohol or drug abuse patient.[facility] CenterIn the event this information is protected by the Federal Confidentiality of Alcohol and Drug Abuse Patient Records regulations: The Federal rules restrict any use of the information to criminally investigate or prosecute any alcohol or drug abuse patient.[facility] CenterIn the event this information is protected by the Federal Confidentiality of Alcohol and Drug Abuse Patient Records regulations: The Federal rules restrict any use of the information to criminally investigate or prosecute any alcohol or drug abuse patient.[facility] CenterIn the event this information is protected by the Federal Confidentiality of Alcohol and Drug Abuse Patient Records regulations: The Federal rules restrict any use of the information to criminally investigate or prosecute any alcohol or drug abuse patient.[facility] CenterIn the event this information is protected by the Federal Confidentiality of Alcohol and Drug Abuse Patient Records regulations: The Federal rules restrict any use of the information to criminally investigate or prosecute any alcohol or drug abuse patient.[facility] CenterIn the event this information is protected by the Federal Confidentiality of Alcohol and Drug Abuse Patient Records regulations: The Federal rules restrict any use of the information to criminally investigate or prosecute any alcohol or drug abuse patient.[facility] CenterIn the event this information is protected by the Federal Confidentiality of Alcohol and Drug Abuse Patient Records regulations: The Federal rules restrict any use of the information to criminally investigate or prosecute any alcohol or drug abuse patient.[facility] CenterIn the event this information is protected by the Federal Confidentiality of Alcohol and Drug Abuse Patient Records regulations: The Federal rules restrict any use of the information to criminally investigate or prosecute any alcohol or drug abuse patient.[facility] CenterIn the event this information is protected by the Federal Confidentiality of Alcohol and Drug Abuse Patient Records regulations: The Federal rules restrict any use of the information to criminally investigate or prosecute any alcohol or drug abuse patient.[facility] CenterIn the event this information is protected by the Federal Confidentiality of Alcohol and Drug Abuse Patient Records regulations: The Federal rules restrict any use of the information to criminally investigate or prosecute any alcohol or drug abuse patient.[facility] CenterIn the event this information is protected by the Federal Confidentiality of Alcohol and Drug Abuse Patient Records regulations: The Federal rules restrict any use of the information to criminally investigate or prosecute any alcohol or drug abuse patient.[facility] CenterIn the event this information is protected by the Federal Confidentiality of Alcohol and Drug Abuse Patient Records regulations: The Federal rules restrict any use of the information to criminally investigate or prosecute any alcohol or drug abuse patient.[facility] CenterIn the event this information is protected by the Federal Confidentiality of Alcohol and Drug Abuse Patient Records regulations: The Federal rules restrict any use of the information to criminally investigate or prosecute any alcohol or drug abuse patient.[facility] CenterIn the event this information is protected by the Federal Confidentiality of Alcohol and Drug Abuse Patient Records regulations: The Federal rules restrict any use of the information to criminally investigate or prosecute any alcohol or drug abuse patient.[facility] CenterIn the event this information is protected by the Federal Confidentiality of Alcohol and Drug Abuse Patient Records regulations: The Federal rules restrict any use of the information to criminally investigate or prosecute any alcohol or drug abuse patient.[facility] CenterIn the event this information is protected by the Federal Confidentiality of Alcohol and Drug Abuse Patient Records regulations: The Federal rules restrict any use of the information to criminally investigate or prosecute any alcohol or drug abuse patient.[facility] CenterIn the event this information is protected by the Federal Confidentiality of Alcohol and Drug Abuse Patient Records regulations: The Federal rules restrict any use of the information to criminally investigate or prosecute any alcohol or drug abuse patient.[facility] CenterIn the event this information is protected by the Federal Confidentiality of Alcohol and Drug Abuse Patient Records regulations: The Federal rules restrict any use of the information to criminally investigate or prosecute any alcohol or drug abuse patient.[facility] CenterIn the event this information is protected by the Federal Confidentiality of Alcohol and Drug Abuse Patient Records regulations: The Federal rules restrict any use of the information to criminally investigate or prosecute any alcohol or drug abuse patient.[facility] CenterIn the event this information is protected by the Federal Confidentiality of Alcohol and Drug Abuse Patient Records regulations: The Federal rules restrict any use of the information to criminally investigate or prosecute any alcohol or drug abuse patient.[facility] CenterIn the event this information is protected by the Federal Confidentiality of Alcohol and Drug Abuse Patient Records regulations: The Federal rules restrict any use of the information to criminally investigate or prosecute any alcohol or drug abuse patient.[facility] CenterIn the event this information is protected by the Federal Confidentiality of Alcohol and Drug Abuse Patient Records regulations: The Federal rules restrict any use of the information to criminally investigate or prosecute any alcohol or drug abuse patient.[facility] CenterIn the event this information is protected by the Federal Confidentiality of Alcohol and Drug Abuse Patient Records regulations: The Federal rules restrict any use of the information to criminally investigate or prosecute any alcohol or drug abuse patient.[facility] CenterIn the event this information is protected by the Federal Confidentiality of Alcohol and Drug Abuse Patient Records regulations: The Federal rules restrict any use of the information to criminally investigate or prosecute any alcohol or drug abuse patient.[facility] CenterIn the event this information is protected by the Federal Confidentiality of Alcohol and Drug Abuse Patient Records regulations: The Federal rules restrict any use of the information to criminally investigate or prosecute any alcohol or drug abuse patient.[facility] CenterIn the event this information is protected by the Federal Confidentiality of Alcohol and Drug Abuse Patient Records regulations: The Federal rules restrict any use of the information to criminally investigate or prosecute any alcohol or drug abuse patient.[facility] CenterIn the event this information is protected by the Federal Confidentiality of Alcohol and Drug Abuse Patient Records regulations: The Federal rules restrict any use of the information to criminally investigate or prosecute any alcohol or drug abuse patient.[facility] CenterIn the event this information is protected by the Federal Confidentiality of Alcohol and Drug Abuse Patient Records regulations: The Federal rules restrict any use of the information to criminally investigate or prosecute any alcohol or drug abuse patient.[facility] CenterIn the event this information is protected by the Federal Confidentiality of Alcohol and Drug Abuse Patient Records regulations: The Federal rules restrict any use of the information to criminally investigate or prosecute any alcohol or drug abuse patient.[facility] CenterIn the event this information is protected by the Federal Confidentiality of Alcohol and Drug Abuse Patient Records regulations: The Federal rules restrict any use of the information to criminally investigate or prosecute any alcohol or drug abuse patient.[facility] CenterIn the event this information is protected by the Federal Confidentiality of Alcohol and Drug Abuse Patient Records regulations: The Federal rules restrict any use of the information to criminally investigate or prosecute any alcohol or drug abuse patient.[facility] CenterIn the event this information is protected by the Federal Confidentiality of Alcohol and Drug Abuse Patient Records regulations: The Federal rules restrict any use of the information to criminally investigate or prosecute any alcohol or drug abuse patient.[facility] CenterIn the event this information is protected by the Federal Confidentiality of Alcohol and Drug Abuse Patient Records regulations: The Federal rules restrict any use of the information to criminally investigate or prosecute any alcohol or drug abuse patient.[facility] CenterIn the event this information is protected by the Federal Confidentiality of Alcohol and Drug Abuse Patient Records regulations: The Federal rules restrict any use of the information to criminally investigate or prosecute any alcohol or drug abuse patient.[facility] CenterIn the event this information is protected by the Federal Confidentiality of Alcohol and Drug Abuse Patient Records regulations: The Federal rules restrict any use of the information to criminally investigate or prosecute any alcohol or drug abuse patient.[facility] CenterIn the event this information is protected by the Federal Confidentiality of Alcohol and Drug Abuse Patient Records regulations: The Federal rules restrict any use of the information to criminally investigate or prosecute any alcohol or drug abuse patient.[facility] CenterIn the event this information is protected by the Federal Confidentiality of Alcohol and Drug Abuse Patient Records regulations: The Federal rules restrict any use of the information to criminally investigate or prosecute any alcohol or drug abuse patient.[facility] CenterIn the event this information is protected by the Federal Confidentiality of Alcohol and Drug Abuse Patient Records regulations: The Federal rules restrict any use of the information to criminally investigate or prosecute any alcohol or drug abuse patient.[facility] CenterIn the event this information is protected by the Federal Confidentiality of Alcohol and Drug Abuse Patient Records regulations: The Federal rules restrict any use of the information to criminally investigate or prosecute any alcohol or drug abuse patient.[facility] CenterIn the event this information is protected by the Federal Confidentiality of Alcohol and Drug Abuse Patient Records regulations: The Federal rules restrict any use of the information to criminally investigate or prosecute any alcohol or drug abuse patient.[facility] Center[facility] the event this information is protected by the Federal Confidentiality of Alcohol and Drug Abuse Patient Records regulations: The Federal rules restrict any use of the information to criminally investigate or prosecute any alcohol or drug abuse patient.[facility] Center[facility] the event this information is protected by the Federal Confidentiality of Alcohol and Drug Abuse Patient Records regulations: The Federal rules restrict any use of the information to criminally investigate or prosecute any alcohol or drug abuse patient.[facility] Reason for Visit (unrecogniz ed section and content) Reason Comments Recheck 2 month follow up Reason Comments Follow Up Reason Onset Date [...] of plate 2 week ago seen in [facility] ER on 05/09/23.Was treated with cephalexin 500mg every 6 hours. 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 Reason Comments Letter for Coummunity Action Reason Comments Orders Reason Comments Home health plan of care medication questions Reason Comments OT Plan of Care Reason Comments PT Plan of Care Reason Onset Date Comments Refill Request 05/27/2024 Needs today Reason Comments Urinary Problem Confusion, very zane le thirst started today Reason Comments Orders Reason Comments No Show Reason Comments Patient Question Reason Comments Hospital Follow Up Reason Comments [facility] nursing Reason Comments Hospital F/U dehydration c/o righ t knee goes out on her Reason Comments patient assistance Reason Comments Rx refill; not on current med list Reason Comments Consult Specialty Diagnoses / Procedures Referred By Aminata marie Referred To Contact Internal Medicine / GERIATRICS Diagnoses Other symptoms and signs involving cognitive functions and awareness Other amnesia Encounter for follow-up examination after completed treatment for conditions other than malignant neoplasm Cognitive impairment [R41.89] Memory deficit [R41.3] Procedures OFFICE/OUTPATIENT ESTABLISHED SF MDM 10 MIN OFFICE/OUTPATIENT ESTABLISHED LOW MDM 20 MIN OFFICE/OUTPATIENT ESTABLISHED MOD MDM 30 MIN OFFICE/OUTPATIENT ESTABLISHED HIGH MDM 40 MIN 4C EXCEPTION Joon Lopez MD [address] [place] [id number] Xochitl Castrejon MD [address] [place] [id number] Referral ID Status Reason Start Date Expiration Date Visits Re quested Visits Authorized [id number] Closed 08/03/2024 11/01/2024 1 1 Reason Comments Appointment Reason Comments Urinary Problem Frequency, cloudy, c onfusion x 1 week Care Teams (unrecognized sec tion and content) 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 Relationship Specialty Start Date End Date Joon Lopez MD [address] [place] [id number] PCP - General 08/18/02 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 Relationship Specialty Start Date End Date Joon Lopez MD [address] [place] [address] [id number] PCP - General 08/18/02 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 Relationship Specialty Start Date End Date Joon Lopez MD [address] [place] [id number] PCP - General 08/18/02 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 Relationship Specialty Start Date End Date Joon Lopez MD [address] [place] [phone] PCP - General 08/18/02 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 Relationship Specialty Start Date End Date Joon Lopez MD [address] [place] [address] [id number] PCP - General 08/18/02 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 Relationship Specialty Start Date End Date Joon Lopez MD [address] [place] [id number] PCP - General 08/18/02 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 Relationship Specialty Start Date End Date Joon Lopez MD [facility] [place] [address] PCP - General 08/18/02 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 Relationship Specialty Start Date End Date Joon Lopez MD [address] [place] [address], [place] [address] PCP - General 08/18/02 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 Relationship Specialty Start Date End Date Joon Lopez MD [address] [place] [address], [place] [address] PCP - General 08/18/02 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 Relationship Specialty Start Date End Date Joon Lopez MD [address] [place] [address], [place] [address] PCP - General 08/18/02 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 Relationship Specialty Start Date End Date Joon Lopez MD [address] [place] [address], [place] [address] PCP - General 08/18/02 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 Relationship Specialty Start Date End Date Joon Lopez MD [address] [place] [address], [place] [address] PCP - General 08/18/02 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 Relationship Specialty Start Date End Date Joon Lopez MD [address] [place] [address], [place] [address] PCP - General 08/18/02 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 Relationship Specialty Start Date End Date Joon Lopez MD [address] [place] [address], [place] [address] PCP - General 08/18/02 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 Relationship Specialty Start Date End Date Joon Lopez MD [address] [place] [address], [place] [address] PCP - General 08/18/02 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 Relationship Specialty Start Date End Date Joon Lopez MD [address] [place] [address] PCP - General 08/18/02 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 Relationship Specialty Start Date End Date Joon Lopez MD [address] [place] [address] PCP - General 08/18/02 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 Relationship Specialty Start Date End Date Joon Lopez MD [address] [place] [address] PCP - General 08/18/02 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 Relationship Specialty Start Date End Date Joon Lopez MD [address] [place] [address] PCP - General 08/18/02 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 Relationship Specialty Start Date End Date Joon Lopez MD [address] [place] [address] PCP - General 08/18/02 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 Relationship Specialty Start Date End Date Joon Lopez MD [address] [place] [address] PCP - General 08/18/02 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 Relationship Specialty Start Date End Date Joon Lopez MD [address] [place] [address] PCP - General 08/18/02 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 Relationship Specialty Start Date End Date Joon Lopez MD [address] [place] [address] PCP - General 08/18/02 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 Relationship Specialty Start Date End Date Joon Lopez MD [address] [place] [address] PCP - General 08/18/02 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 Relationship Specialty Start Date End Date Joon Lopez MD [address] [place] [address] PCP - General 08/18/02 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 Relationship Specialty Start Date End Date Joon Lopez MD [address] [place] [address] PCP - General 08/18/02 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 Relationship Specialty Start Date End Date Joon Lopez MD [address] [place] [address] PCP - General 08/18/02 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 Relationship Specialty Start Date End Date Joon Lopez MD [address] [place] [address] PCP - General 08/18/02 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 Relationship Specialty Start Date End Date Joon Lopez MD [address] [place] [address] PCP - General 08/18/02 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 Relationship Specialty Start Date End Date Joon Lopez MD [address] [place] [address] PCP - General 08/18/02 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 Relationship Specialty Start Date End Date Joon Lopez MD [address] [place] [address] PCP - General 08/18/02 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 Relationship Specialty Start Date End Date Joon Lopez MD [address] [place] [address] PCP - General 08/18/02 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 Relationship Specialty Start Date End Date Joon Lopez MD [address] [place] [address] PCP - General 08/18/02 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 Relationship Specialty Start Date End Date Joon Lopez MD [address] [place] [address] PCP - General 08/18/02 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 Relationship Specialty Start Date End Date Joon Lopez MD [address] [place] [address] PCP - General 08/18/02 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 Relationship Specialty Start Date End Date Joon Lopez MD [address] [place] [address] PCP - General 08/18/02 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 Relationship Specialty Start Date End Date Joon Lopez MD [address] [place] [address] PCP - General 08/18/02 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 Relationship Specialty Start Date End Date Joon Lopez MD [address] [place] [address] PCP - General 08/18/02 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 Relationship Specialty Start Date End Date Joon Lopez MD [address] [place] [address] PCP - General 08/18/02 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 Relationship Specialty Start Date End Date Joon Lopez MD [address] [place] [address] PCP - General 08/18/02 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 Relationship Specialty Start Date End Date Joon Lopez MD [address] [place] [address] PCP - General 08/18/02 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 Relationship Specialty Start Date End Date Joon Lopez MD [address] [place] [address] PCP - General 08/18/02 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 Relationship Specialty Start Date End Date Joon Lopez MD [address] [place] [address] PCP - General 08/18/02 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 Relationship Specialty Start Date End Date Joon Lopez MD [address] [place] [address] PCP - General 08/18/02 FOR RECORDS PERTAINING [...] BE BASED ON THE PRIMARY CLINICAL RECORDS. [facility]. provides no warranty or guarantee of the accuracy or completeness of information in this document.
--- NOTE | 2024-08-20 21:10 | RAD_ITS ---
EXAM: XR LEFT ELBOW COMPLETE, 3 OR MORE VIEWS CLINICAL INDICATION: pain after fall TECHNIQUE: Frontal, lateral and oblique views of the left elbow. COMPARISON: No relevant prior studies available. FINDINGS: BONES/JOINTS: Small chronic-appearing ossification anterior to the elbow the anterior margin of the olecranon fossa. Mildly prominent anterior and posterior fat pads the lateral view. Hypertrophic change at the lateral distal humerus in the expected region of the lateral collateral ligament complex. Small ossification adjacent to the lateral humeral condyle articular surface with interdigitating chronic-appearing margin. Mildly heterogeneous bone density. Slight transverse lucency in the proximal radius just inferior to the articular surface frontal view without convincing fracture. Preservation of the joint space. SOFT TISSUES: Unremarkable. No soft tissue swelling or gas. No radiopaque foreign body. RAD/Elbow min 3 Views IMPRESSION: 1. It is difficult to exclude a small joint effusion, mildly prominent fat pads. Not as distended as usually seen with acute fractures. 2. Heterogeneous bone density and multiple chronic-appearing ossifications around the joint. 3. Consider CT if there is strong clinical suspicion of an occult acute elbow fracture, or short-term follow-up. Electronically Signed: Laura Perez MD at 23:48 EDT ,
[2024-08-20 22:05] VITALS: BP 126/77; PULSE 61; RESP 18; O2SAT 93
[2024-08-21] VITALS: BP 146/88; PULSE 64; RESP 16; O2SAT 93
[2024-08-21] MEDS: oxyCODONE 5 MG Tablet PO (01:12)
[2024-08-21 01:23] VITALS: BP 145/97; PULSE 61; RESP 18; TEMP 36.7; O2SAT 93
== END 2024-08-21 02:08 | disposition home or self-care (01) ==
PROVIDERS: Emergency Provider Emergency Medicine; PCP Internal Medicine; Visit Provider Emergency Medicine
DX: S40.012A Contusion of left shoulder, initial encounter (principal); E11.9 Type 2 diabetes mellitus without complications; S60.212A Contusion of left wrist, initial encounter; S50.02XA Contusion of left elbow, initial encounter; G47.33 Obstructive sleep apnea (adult) (pediatric); Z79.01 Long term (current) use of anticoagulants; Z86.16 Personal history of COVID-19; Z95.0 Presence of cardiac pacemaker; W19.XXXA Unspecified fall, initial encounter
CPT/HCPCS: 73030; 73080; 73110; 99283

== ENCOUNTER 2024-08-22 13:47 | Outpatient (RCR) | payer MEDICARE, SELFPAY ==
[2024-07-26 04:09] VITALS: BMI 29.2
[2024-07-27 14:45] LABS: International Normalized Ratio 1.7
[2024-08-03 11:28] LABS: International Normalized Ratio 2.8; Prothrombin Time (Protime)PT. 29.2 SECONDS (11.7-14.9)
[2024-08-03 11:29] LABS: Vitamin B12 889 pg/mL (211-911)
[2024-08-10 15:25] LABS: International Normalized Ratio 2.6; Prothrombin Time (Protime)PT. 27.9 SECONDS (11.7-14.9)
[2024-08-22 15:46] LABS: International Normalized Ratio 3.3; Prothrombin Time (Protime)PT. 33.2 SECONDS (11.7-14.9)
== END 2024-08-22 18:00 | disposition home or self-care (01) ==
LOC: LAB 13:47
PROVIDERS: Internal Medicine Cardiovascular Disease; Family Provider Internal Medicine; PCP Internal Medicine; Referring Provider Physician Assistant Medical; Visit Provider Physician Assistant Medical
DX: Z79.01 Long term (current) use of anticoagulants
CPT/HCPCS: 36415; 82607; 85610

== ENCOUNTER 2024-09-19 13:16 | Outpatient (RCR) | payer MEDICARE, SELFPAY ==
[2024-08-25 20:49] VITALS: BMI 29.2
[2024-08-26 10:48] LABS: Prothrombin Time (Protime)PT. 42.9 SECONDS (11.7-14.9)
[2024-08-26 10:49] LABS: International Normalized Ratio 4.6
[2024-08-29 14:35] LABS: International Normalized Ratio 1.9; Prothrombin Time (Protime)PT. 21.9 SECONDS (11.7-14.9)
[2024-09-08 15:40] LABS: International Normalized Ratio 2.2; Prothrombin Time (Protime)PT. 24.3 SECONDS (11.7-14.9)
[2024-09-19 13:51] LABS: International Normalized Ratio 2.1; Prothrombin Time (Protime)PT. 23.2 SECONDS (11.7-14.9)
== END 2024-09-24 18:00 | disposition home or self-care (01) ==
LOC: LAB 13:16
PROVIDERS: Family Provider Internal Medicine; PCP Internal Medicine; Referring Provider Physician Assistant Medical; Visit Provider Physician Assistant Medical
DX: I48.91 Unspecified atrial fibrillation (principal); I48.92 Unspecified atrial flutter; Z79.01 Long term (current) use of anticoagulants

== ENCOUNTER 2024-11-01 07:52 | Outpatient (RCR) | payer MEDICARE, SELFPAY ==
[2024-09-24 23:41] VITALS: BMI 29.2
[2024-11-01 09:15] LABS: International Normalized Ratio 1.5; Prothrombin Time (Protime)PT. 18.8 SECONDS (11.7-14.9)
== END 2024-11-01 18:00 | disposition home or self-care (01) ==
LOC: LAB 07:52
PROVIDERS: Family Provider Internal Medicine; PCP Internal Medicine; Referring Provider Physician Assistant Medical; Visit Provider Physician Assistant Medical
DX: Z79.01 Long term (current) use of anticoagulants
CPT/HCPCS: 36415; 85610

== ENCOUNTER 2025-01-04 17:16 | Emergency (ER) | payer MEDICARE, SELFPAY ==
[2025-01-04 17:16] VITALS: BP 144/68; PULSE 74; RESP 15; TEMP 36.4; O2SAT 98; BMI 27.5
--- NOTE | 2025-01-04 17:31 | RAD_ITS ---
PROCEDURE: Left shoulder radiographs REASON FOR EXAM: PAIN TECHNIQUE: Four views of the left shoulder COMPARISON: 08/20/2024 FINDINGS: See impression RAD/Shoulder min 2 Views IMPRESSION: Negative for acute fracture or dislocation. Mild glenohumeral and acromioclavi cular joint osteoarthritis. Reading Location: [facility]
--- NOTE | 2025-01-04 18:52 | EX.ED.UPPERE ---
HPI History of Present Illness Chief Complaint: Upper Extremity Injury Narrative Narrative: 79-year-old female, [id number], presents with her daughter because of injury to her left shoulder and left humerus that she sustained a few days ago. She relates history that she has had frequent falls in the past. She is currently enrolled in pain management and had an injection of her back by Dr. Hodges. That was a week or so ago, but now she states that this is caused her to have a few falls. She has pain in her left shoulder and mid humerus. She has pain with movement as well. She has Percocet which she can take but she has not taken any today. She presents with her daughter because of the injury to her left shoulder and humerus. [facility] Medical History Alzheimer dementia FDC (current) use of anticoagulants RAMESH (obstructive sleep apnea) Asthma History of complete heart block Other intervertebral disc degeneration, lumbar region Low back pain History of fall Non-pressure chronic ulcer of other part of left foot with fat layer exposed Pain in left foot Cardiac murmur Left knee sprain Falls Abnormal EKG Ulcer of right lower extremity with fat layer exposed Atrial flutter Obesity Pulmonary hypertension Subtherapeutic international normalized ratio (INR) Hyperlipidemia Type 2 diabetes mellitus Wears glasses Wears dentures Post-menopausal Sore on leg Arthritis Dietary restriction CPAP (continuous positive airway pressure) dependence Non-smoker Shortness of breath on exertion Cardiology follow-up encounter History of stress test History of echocardiogram Ureteral mass Hydronephrosis, right Fracture of left elbow Cervical strain, acute COVID-19 Essential hypertension Hyperlipidemia DDD (degenerative disc disease) Shoulder dislocation Contact dermatitis and other eczema Allergic rhinitis 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 Obesity Diabetes mellitus Hypersomnia Other secondary pulmonary hypertension BMI 33.0-33.9,adult Hx of bladder infections Atrial fibrillation Home Medications ?Medication ?Instructions ?Recorded ?Last Taken ?Type warfarin 5 mg tablet 5 mg PO DAILY blood thinner 11/18/18 06/29/24 History atorvastatin 10 mg tablet 10 mg PO QHS cholesterol 12/11/19 05/03/24 History gabapentin 300 mg capsule 300 mg PO BREAKFAST nerve pain 08/04/22 07/04/24 History gabapentin 300 mg capsule 600 mg PO QHS Neuropathy 08/04/22 05/03/24 History albuterol sulfate 90 mcg/actuation 2 puff inhalation Q4H PRN 03/04/24 Unknown Rx aerosol inhaler shortness of breath or wheezing #8.5 grams cholecalciferol (vitamin D3) 50 50 mcg PO DAILY 04/13/24 05/04/24 History mcg (2,000 unit) capsule magnesium oxide 250 mg PO DAILY SUPPLEMENT 04/13/24 05/04/24 History mecobalamin (vitamin B12) 1,000 1,000 mcg PO DAILY 04/13/24 05/04/24 History mcg chewable tablet oxybutynin chloride 10 mg 10 mg PO DAILY 04/13/24 Unknown History tablet,extended release 24 hr acetaminophen 500 mg tablet 1,000 mg (2 x 500 mg) PO Q8 PRN 05/06/24 Unknown Rx fever or pain #0 tabs glimepiride 2 mg tablet 2 mg PO BID 06/10/24 Unknown History blood-glucose meter (OneTouch #1 ea 07/01/24 Unknown History Verio Flex Meter) montelukast 10 mg tablet 10 mg PO QPM #90 tabs 07/26/24 Unknown Rx sertraline 50 mg tablet 50 mg PO DAILY 08/20/24 Unknown History trospium 20 mg tablet 20 mg PO BID 08/20/24 Unknown History docusate sodium 100 mg capsule 100 mg PO BID #60 caps 08/21/24 Unknown Rx (Colace) oxycodone-acetaminophen 5 mg-325 1 tab PO Q6H PRN PRN Pain 3 days 08/21/24 Unknown Rx mg tablet #12 TABLETS donepezil 5 mg tablet mg PO DAILY 12/09/24 Unknown History Allergy/AdvReac Type Severity Reaction Status Date / Time amoxicillin Allergy Severe Hives Verified 01/04/25 17:19 aspirin Allergy Severe Hives, SOB Verified 01/04/25 17:19 Sulfa (Sulfonamide Allergy Severe Hives Verified 01/04/25 17:19 Antibiotics) Family History Mother Diabetes Father CAD (coronary artery disease) Sister Lung cancer Son Kidney stone Surgical History Presence of permanent cardiac pacemaker (04/01/19) S/P ablation of atrial flutter (04/01/19) History of cystoscopy Hx of right cataract extraction Hx of left cataract extraction History of kidney surgery History of appendectomy Social History household members: none housing: house number of children: 3 current occupational status: retired Smoking Status: Never smoker alcohol intake: never substance use type: does not use what type of physical activity do you participate in: none do you feel safe at home: Yes ROS ROS ED ROS Narrative Review of systems positive for left shoulder and midshaft humerus pain. Pain worse with movement. Denies other injury. No neck pain. No fevers or chills. EXAM Physical Exam Narrative Exam Narrative: Patient examined in bernardo chair secondary to bed availability and acuity. Afebrile. Vital signs noted. Nontoxic-appearing. There is diffuse tenderness to palpation throughout the left shoulder. No clinical dislocation. Mild tenderness to palpation of the left midshaft humerus. No crepitance. Neurovascularly intact distally. Hand strength 5 out of 5. Palpable radial pulse, left. Const Vital Signs: 01/04/25 17:16 Temperature 97.5 F L Temperature Source Temporal Pulse Rate 74 Respiratory Rate 15 Blood Pressure 144/68 H Blood Pressure Mean 93 Pulse Ox 98 Oxygen Delivery Method Room Air MDM MDM MDM Narrative Medical decision making narrative: As her fall was a few days ago, differential diagnosis does include fracture versus contusion versus ligamentous sprain versus muscle strain. She was given oxycodone here. X-rays of the left shoulder obtained through protocol and interpreted by myself independently which shows arthritis but no evidence of an acute dislocation or fracture. I reviewed the radiology report which confirms my independent interpretation. Clinically I do not think that she has a fracture of the midshaft humerus, and I have very low suspicion for necrotizing fasciitis, so x-ray of the humerus was added as this is her dominant hand. On my independent interpretation of the x-rays of her left humerus, I see no evidence of an acute fracture. I reviewed the radiology report which confirms my independent interpretation. 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 At this point in time I feel she can be discharged to follow-up with her primary care provider as well as her pain management doctor. She will continue her Percocet as previously directed for pain. Disposition is discharged home in stable condition. Radiography Diagnostic Testing: Clinical Impression(s) from Imaging Studies Shoulder X-Ray 01/04/25 17:31 IMPRESSION: Negative for acute fracture or dislocation. Mild glenohumeral and acromioclavicular joint osteoarthritis. Reading Location: [facility] Discharge Plan Triage Chief Complaint: Upper Extremity Injury ED Provider: Manuel Sanchez Dx/Rx/DC Orders Clinical Impression: Arthritis of left shoulder, Arm pain, left Instructions: ED Osteoarthritis, ED Shoulder Pain, Uncertain Cause Prescriptions: No Action albuterol sulfate 90 mcg/actuation HFA aerosol inhaler 2 puff INHALATION Q4H PRN (Reason: shortness of breath or wheezing) Qty: 8.5 6RF Rx Instructions: administer with spacer oxybutynin chloride 10 mg tablet extended release 24hr 10 mg PO DAILY cholecalciferol (vitamin D3) 50 mcg (2,000 unit) capsule 50 mcg PO DAILY mecobalamin (vitamin B12) 1,000 mcg tablet,chewable 1,000 mcg PO DAILY glimepiride 2 mg tablet 2 mg PO BID (DME) blood-glucose meter [[employer] Verio Flex meter] Misc See Rx Instructions .ROUTE .MEDSUPPLY Qty: 1 Patient Comments: [NO ORIGINAL SIG] Rx Instructions: As directed donepezil 5 mg tablet PO DAILY warfarin 5 MG tablet 5 mg PO DAILY Protocol: Dose Management Condition: Thursday Dose/Route: 0 mg Instruction: 0 tablets Condition: Thursday Dose/Route: 0 mg Instruction: 0 tablets Condition: Thursday Dose/Route: 0 mg Instruction: 0 tablets Condition: Thursday Dose/Route: 5 mg Instruction: 1 x 5 mg tablet Condition: Dose/Route: 5 mg Instruction: 1 x 5 mg tablet Condition: Thursday Dose/Route: 5 mg Instruction: 1 x 5 mg tablet Condition: Thursday Dose/Route: 5 mg Instruction: 1 x 5 mg tablet Protocol Text: Adjustment Start Date: Thursday11/01/24 INR Value: 1.5 INR Date: 11/01/24 Recheck Date: 11/09/24 atorvastatin 10 MG tablet 10 mg PO QHS gabapentin 300 mg capsule 600 mg PO QHS Patient Comments: Take 2 capsules by mouth daily at bedtime AND 1 capsule every morning. gabapentin 300 mg capsule 300 mg PO BREAKFAST Patient Comments: Take 2 capsules by mouth daily at bedtime AND 1 capsule every morning. Rx Instructions: 300 mg orally; magnesium oxide 400 mg magnesium tablet 250 mg PO DAILY acetaminophen 500 mg Tablet 1,000 mg PO Q8 PRN (Reason: fever or pain) Qty: 0 0RF sertraline 50 mg tablet 50 mg PO DAILY trospium 20 mg tablet 20 mg PO BID oxycodone-acetaminophen 5-325 mg tablet 1 tab PO Q6H PRN PRN (Reason: Pain) 3 Days Qty: 12 0RF docusate sodium [Colace] 100 mg capsule 100 mg PO BID Qty: 60 0RF montelukast 10 mg tablet 10 mg PO QPM Qty: 90 3RF Primary Care Provider: Ro Reed Referrals: Ro Reed MD [Primary Care Provider] - 1 Week if not improving Activity Restrictions/Additional Instructions: Follow-up with your pain management doctor soon as possible. Take your Percocet as previously directed for pain. Return with new or worsening symptoms. Your x-rays were negative for fracture today, but you do have arthritis in your left shoulder. Print Language: Pashto Disposition Disposition: Home, Self Care
[2025-01-04] MEDS: oxyCODONE 5 MG Tablet PO (18:55)
--- NOTE | 2025-01-04 19:16 | RAD_ITS ---
PROCEDURE: HUMERUS MIN 2 VIEWS REASON FOR EXAM: PAIN, TRAUMA TECHNIQUE: Two views of the left humerus COMPARISON: None. FINDINGS: See impression RAD/Humerus min 2 Views IMPRESSION: Negative for acute fracture or dislocation. Mild glenohumeral and elbow osteoa rthritis. Reading Location: [facility]
== END 2025-01-04 19:56 | disposition home or self-care (01) ==
PROVIDERS: Emergency Provider Emergency Medicine; PCP Internal Medicine; Visit Provider Emergency Medicine
DX: S49.92XA Unspecified injury of left shoulder and upper arm, initial encounter (principal); I27.20 Pulmonary hypertension, unspecified; G30.9 Alzheimer's disease, unspecified; F02.80 Dementia in other diseases classified elsewhere, unspecified severity, without behavioral disturbance, psychotic disturbance, mood disturbance, and anxiety; I48.91 Unspecified atrial fibrillation; E11.9 Type 2 diabetes mellitus without complications; M19.012 Primary osteoarthritis, left shoulder; M19.022 Primary osteoarthritis, left elbow; Z91.81 History of falling; W19.XXXA Unspecified fall, initial encounter; I10 Essential (primary) hypertension; E78.5 Hyperlipidemia, unspecified; G47.33 Obstructive sleep apnea (adult) (pediatric); J45.909 Unspecified asthma, uncomplicated; Z88.0 Allergy status to penicillin; Z79.84 Long term (current) use of oral hypoglycemic drugs; Z79.01 Long term (current) use of anticoagulants; Z88.2 Allergy status to sulfonamides; Z79.899 Other long term (current) drug therapy
CPT/HCPCS: 73030; 73060; 99282

== ENCOUNTER 2025-01-12 09:59 | Outpatient (RCR) | payer MEDICARE, SELFPAY ==
[2024-11-26 01:35] VITALS: BMI 29.2
[2025-01-12 11:38] LABS: Prothrombin Time (Protime)PT. 23.5 SECONDS (11.7-14.9)
== END 2025-01-12 18:00 | disposition home or self-care (01) ==
LOC: LAB 09:59
PROVIDERS: Family Provider Internal Medicine; PCP Internal Medicine; Referring Provider Physician Assistant Medical; Visit Provider Physician Assistant Medical
DX: Z79.01 Long term (current) use of anticoagulants (principal)
CPT/HCPCS: 36415; 85610

== ENCOUNTER 2025-03-23 07:43 | Outpatient (RCR) | payer MEDICARE, SELFPAY ==
[2025-01-23 22:13] VITALS: BMI 29.2
[2025-03-23 11:50] LABS: International Normalized Ratio 1.2; Prothrombin Time (Protime)PT. 15.4 SECONDS (11.7-14.9)
== END 2025-03-23 18:00 | disposition home or self-care (01) ==
LOC: LAB 07:43
PROVIDERS: Family Provider Internal Medicine; PCP Internal Medicine; Referring Provider Physician Assistant Medical; Visit Provider Physician Assistant Medical
DX: Z79.01 Long term (current) use of anticoagulants
CPT/HCPCS: 36415; 85610

== ENCOUNTER 2025-05-11 17:27 | Outpatient (RCR) | payer MEDICARE, SELFPAY ==
[2025-03-25 22:00] VITALS: BMI 29.2
== END 2025-05-25 21:10 | disposition home or self-care (01) ==
LOC: LAB 17:27
PROVIDERS: Family Provider Internal Medicine; PCP Internal Medicine; Referring Provider Physician Assistant Medical; Visit Provider Physician Assistant Medical
DX: Z00.00 Encounter for general adult medical examination without abnormal findings (principal)

== ENCOUNTER → 2025-05-11 | Outpatient (CLI) | payer MEDICARE, SELFPAY ==
--- OUTSIDE RECORDS SUMMARY | 2025-05-11 20:56 | XMS RPT_ITS | CCD ---
Author Organization [facility] Care Team Providers Care Heavy Equipment Field Mechanic Name Role Phone Meño BOONE, Clarisse Kenya Unavailable Unavaila Kim Sullivan Unavailable Unavailable Dr. Joon Lopez Primary Care Provider Dr. Joon Lopez Referring Provider Ludwin SUBSTATION SUPERVISOR, SUBSTATION SUPERVISOR-C Leeanna Attending Provider Dr. Sharan Chandra Attending Provider Joon Lopez MD Primary Care Provider Dr. Joon Lopez Primary Care Provider Dr. Joon Lopez Referring Provider Kiley JENKINS, GREGORY Manrique Attending Provider Dr. Sharan Chandra Attending Provider Dr. Tone Alberto Attending Provider Joon Lopez MD Primary Care Provider Dr. Farhat Willis Emergency Provider Dr. Kassi Fisher Attending Provider Dr. Kassi Fisher Admit Provider Dr. Kassi Fisher Other Provider Dr. Alea Martinez Attending Provider Dr. Alea Martinez Other Provider Dr. Joon Lopez Primary Care Provider Dr. Joon Lopez Referring Provider Joon Lopez MD Primary Care Provider Dr. Joon Lopez Primary Care Provider Dr. Farhat Willis Emergency Provider Dr. Kassi Fisher Attending Provider Dr. Kassi Fisher Admit Provider Dr. Kassi Fisher Other Provider Dr. Alea Martinez Attending Provider Dr. Alea Martinez Other Provider Dr. Joon Lopez Referring Provider GREGORY Singer Attending Provider GREGORY Siegel Attending Provider Liana Valles Attending Provider Unavailable Dr. Joon Lopez Primary Care Provider Ludwin SUBSTATION SUPERVISOR, SUBSTATION SUPERVISOR-C Leeanna Attending Provider Dr. Joon oLpez Primary Care Provider Dr. Joon Lopez Referring Provider Dr. Joon Lopez Primary Care Provider Dr. Joon Lopez Referring Provider Ludwin PATHAK, SUBSTATION SUPERVISOR-C Leeanna Attending Provider Liana Valles Attending Provider Unavailable Dr. Bang Emerson Attending Provider Dr. Bang Emerson Referring Provider GREGORY Singer Attending Provider Dr. Joon Lopez Primary Care Provider Dr. Joon Lopez Referring Provider Ludwin SUBSTATION SUPERVISOR, SUBSTATION SUPERVISOR-C Leeanna Attending Provider [phone] GREGORY Singer Attending Provider Dr. Joon Lopez Primary Care Provider Dr. Bang Emerson Attending Provider [phone] Bang Emerson Referring Provider [phone] Joon Lopez Referring Provider Liana Valles Attending Provider Unavailable Dr. Tone Alberto Attending Provider 1([facility])[phone] Tone Alberto Referring Provider Dr. Tone Alberto Other Provider Dr. Ravi Zazueta Attending Provider 1([facility])[phone] Abdifatah Lemon Emergency Provider 1([facility])[phone] Kassi Fisher Admit Provider 1([facility])[phone] Kassi Fisher Other Provider 1([facility])[phone]. Josesito Miller Attending Provider 1([facility])[phone] Dr. Josesito Miller Other Provider 1([facility])[phone] Devyn Samaniego Other Provider 1([facility])[phone] Dr. Joon Lopez Primary Care Provider Dr. Bang Emerson Attending Provider [phone] Bang Emerson Referring Provider [phone] Joon Lopez Referring Provider 1([facility])[phone] Liana Valles Attending Provider Unavailable Dr. Tone Alberto Attending Provider 1([facility])[phone] Tone Alberto Referring Provider Dr. Tone Alberto Other Provider Dr. Ravi Zazueta Attending Provider 1([facility])[phone] Naeem Adamson Attending Provider Dr. Kevin Stewart Referring Provider 1([facility])[phone] Abdifatah Lemon Emergency Provider 1([facility])[phone] Kassi Fisher Admit Provider 1([facility])[phone] Kassi Fisher Other Provider 1([facility])[phone] Josesito Miller Attending Provider Dr. Josesito Miller Other Provider Dr. Devyn Samaniego Other Provider Dr. Ravi Garcia Attending Provider GREGORY Singer Attending Provider DR JOON LOPEZ MD Primary Care Physician Dr. Joon Lopez Primary Care Provider Dr. Bang Emerson Attending Provider Dr. Bang Emerson Referring Provider Dr. Miguel Perera Emergency Provider Dr. Josesito Miller Admit Provider Dr. Tonio Glass Attending Provider Dr. Tonio Glass Other Provider RUBIO GONZALEZ DO Attending Unavailable JOHN NICOLE, DR DUPREE Primary Care Unavailable Joon Lopez MD Primary Care Provider XOCHITL CASTREJON Referring Unavailable JOON LOPEZ Primary Care Unavailable Tang HYDRATION PLANT OPERATOR.WILDLAND FIREFIGHTER, Trini Unavailable Stephany HYDRATION PLANT OPERATOR.RADAR ENGINEERING TEACHER, Whitney Unavailable Stephany HYDRATION PLANT OPERATOR.RADAR ENGINEERING TEACHER, Whitney Unavailable Dr. Joon Lopez MD Primary Care Provider [phone] Sae PATHAK-Adi Perales Other Provider Lisandra Singer Attending Provider Lisandra Singer Referring Provider Dr. Xochitl Castrejon MD Other Provider Dr. Joon Lopez MD Referring Provider Leeanna Blanton Attending Provider Manuel Sanchez MD Emergency Provider Dr. Joon Lopez MD Primary Care Provider [facility] SUBSTATION SUPERVISOR-CAdi Other Provider Lisandra Singer Attending Provider [phone] Lisandra Singer Referring Provider [phone] Dr. Xochitl Castrejon MD Other Provider Manuel Sanchez MD Attending Provider Stephany HYDRATION PLANT OPERATOR.DOMINGO, Whitney Unavailable Dr. Joon Lopez MD Primary Care Provider [phone] [facility] SUBSTATION SUPERVISOR-C, Adi Stanton Other Provider Lisandra Singer Attending Provider [phone] Lisandra Singer Referring Provider [phone] Carmelita NICOLE, Dr. Sousa Other Provider TALAMPAS, JOON D Primary Care Unavailable TALAMPAS, JOON D Attending Unavailable TALAMPAS, JOON D Primary Care Unavailable SELF Referring Unavailable TALAMPAS, JOON D Primary Care Unavailable TALAMPAS, JOON D Attending Unavailable TALAMPAS, JOON D Primary Care Unavailable TALAMPAS, JOON D Referring Unavailable STEPHANY, WHITNEY Attending Unavailable TALAMPAS, JOON D Primary Care Unavailable TALAMPAS, JOON D Primary Care Unavailable TALAMPAS, JOON D Referring Unavailable TALAMPAS, JOON D Primary Care Unavailable TALAMPAS, JOON D Primary Care Unavailable SELF Referring Unavailable GANTA, XOCHITL Attending Unavailable TALAMPAS, JOON D Primary Care Unavailable STEPHANY, WHITNEY Attending Unavailable TALAMPAS, JOON D Primary Care Unavailable SELF Referring Unavailable TALAMPAS, JOON D Primary Care Unavailable TALAMPAS, JOON D Attending Unavailable TALAMPAS, JOON D Primary Care Unavailable STEPHANY, WHITNEY Referring Unavailable TALAMPAS, JOON D Primary Care Unavailable TALAMPAS, JOON D Primary Care Unavailable GANTA, XOCHITL Attending Unavailable TALAMPAS, JOON D Referring Unavailable TALAMPAS, JOON D Primary Care Unavailable SELF Referring Unavailable TALAMPAS, JOON D Primary Care Unavailable GANTA, XOCHITL Attending Unavailable Talampas, Joon D Attending Unavailable Talampas, Joon D Primary Care Unavailable Talampas, Joon D Primary Care Unavailable IdaniaTaeBang Attending Unavailable Talampas, Joon D Primary Care Unavailable Ludwin PATHAK, Leeanna Attending Unavailable Talampas, Joon D Referring Unavailable Talampas, Joon D Primary Care Unavailable Idania, Bang Referring Unavailable Idania, Allred Attending Unavailable Talampas, Joon D Primary Care Unavailable Miguel Perera Attending Unavailable Talampas, Joon D Primary Care Unavailable Roof SUBSTATION SUPERVISOR, Adi H Consulting Unavailable Lisandra Singer Referring Unavail able Lisandra Singer Attending Unavail able Ganta, Xochitl Consulting Unavailable Talampas, Joon D Primary Care Unavailable Viktoriya, Tamy Attending Unavailable Platter, Tamy Referring Unavailable Talampas, Joon D Primary Care Unavailable Idania, Bang Attending Unavailable Talampas, Joon D Referring Unavailable Talampas, Joon D Primary Care Unavailable Idania, Bang Referring Unavailable Idania, Bang Attending Unavailable Talampas, Joon D Primary Care Unavailable Alea Martinez Admitting Unavailable Alea Martinez Consulting Unavailable Alea Martinez Attending Unavailable Talampas, Joon D Primary Care Unavailable Lisandra Singer Attending Unavail able Lisandra Singer Referring Unavail able Roof SUBSTATION SUPERVISOR, Adi H Consulting Unavailable Ganta, Xochitl Consulting Unavailable Talampas, Joon D Primary Care Unavailable Abdifatah Lemon Attending Unavailable Talampas, Joon D Primary Care Unavailable Grant Peters Attending Unavailable Talampas, Joon D Primary Care Unavailable Idania, Bang Referring Unavailable Idania, Bang Attending Unavailable Talampas, Joon D Primary Care Unavailable Lisandra Singer Referring Unavail able Lisandra Singer Attending Unavail able Roof SUBSTATION SUPERVISOR, Adi H Consulting Unavailable Talampas, Joon D Primary Care Unavailable Roof SUBSTATION SUPERVISOR, Adi H Consulting Unavailable Lisandra Singer M Referring Unavail able Lisandra Singer Attending Unavail able Ganta, Xochitl Consulting Unavailable Talampas, Joon D Primary Care Unavailable Kassi Fisher Attending Unavailable Juan, Alea Admitting Unavailable Juan, Alea Consulting Unavailable Talampas, Joon D Primary Care Unavailable Roof SUBSTATION SUPERVISOR, Adi H Consulting Unavailable Lisandra Singer Attending Unavail able Lisandra Singer Referring Unavail able Ganta, Xochitl Consulting Unavailable Talampas, Joon D Primary Care Unavailable Miguel Perera Attending Unavailable Talampas, Joon D Primary Care Unavailable Manuel Sanchez Attending Unavailable Talampas, Joon D Primary Care Unavailable Evert Lomas NP Attending Unavailable Talampas, Joon D Referring Unavailable Talampas, Joon D Primary Care Unavailable Talampas, Joon D Attending Unavailable Talampas, Joon D Primary Care Unavailable Leeanna Mascorro NP Attending Unavailable Talampas, Joon D Referring Unavailable Talampas, Joon D Attending Unavailable Talampas, Joon D Primary Care Unavailable Talampas, Joon D Attending Unavailable Talampas, Joon D Primary Care Unavailable Talampas, Joon D Primary Care Unavailable IdaniaTaeAllred Attending Unavailable Idania, Bang Referring Unavailable Talampas, Joon D Primary Care Unavailable Sae PATHAK, Adi Stanton Consulting Unavailable Lisandra Singer Referring Unavail able Lisandra Singer Attending Unavail able Talampas, Joon D Primary Care Unavailable White, Kassi L Consulting Unavailable White, Kassi L Admitting Unavailable Jopperi, Farhat Attending Unavailable Talampas, Joon D Primary Care Unavailable Talampas, Joon D Attending Unavailable Talampas, Joon D Primary Care Unavailable Talampas, Joon D Attending Unavailable Talampas, Joon D Primary Care Unavailable Talampas, Joon D Attending Unavailable Talampas, Joon D Attending Unavailable Talampas, Joon D Primary Care Unavailable Talampas, Joon D Attending Unavailable Talampas, Joon D Primary Care Unavailable Talampas, Joon D Primary Care Unavailable White, Kassi L Admitting Unavailable White, Kassi L Consulting Unavailable Jopperi, Farhat Attending Unavailable Jopperi, Farhat Consulting Unavailable White, Kassi L Attending Unavailable Talampas, Joon D Primary Care Unavailable White, Kassi L Attending Unavailable Juan, Alea Admitting Unavailable Juan, Alea Consulting Unavailable White, Kassi L Consulting Unavailable White, Kassi L Attending Unavailable White, Kassi L Consulting Unavailable Talampas, Joon D Primary Care Unavailable Naeem Adamson Attending Unavailable Talampas, Joon D Referring Unavailable Talampas, Joon D Primary Care Unavailable Sae PATHAK, Adi Stanton Consulting Unavailable Kiley JENKINS, Lisandra Manrique Attending Unavail able Lisandra Singer Referring Unavail able Xochitl Castrejon Consulting Unavailable Talampas, Joon D Primary Care Unavailable [facility] SUBSTATION SUPERVISOR, Adi H Consulting Unavailable Kiley JENKINS, Lisandra Manrique Attending Unavail yvette JENKINS, Lisandra Manrique Referring Unavail Xochitl Wu Consulting Unavailable Allergies Allergy Classification Reported Allergen(s) Allergy Type Date of Onset Reaction(s) Facility Aspirin (1 source) Aspirin Drug Allergy 9 [facility] Work Phone: Penicillins (antibiotic) (1 source) Amoxicillin Drug Allergy 5 [facility] Sulfonamides (antibiotic) (1 source) Sulfonamides (Antibiotic) Drug Allergy 5 [facility] tiZANidine (1 source) tiZANidine Drug Allergy 3 Mental Status Change, Other: See Comments [facility] Work Phone: (20 sources) amoxicillin; 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: [amoxicillin] Drug Allergy 5 [facility] Work Phone: (20 sources) aspirin; 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: [ASPIRIN] Drug Allergy 9 Hives; SOB, Hives, SOB [facility] Work Phone: (2 sources) sulfaSALAzine Drug Allergy 5 [facility] Work Phone: (4 sources) PROAIR RESPICLICK; 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: [PROAIR RESPICLICK] allergy to substance 6 Lack of efficiency [facility] Work Phone: (20 sources) Sulfonamides (Antibiotic); 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: [SULFA (SULFONAMIDE ANTIBIOTICS)] Allergy to substance 5 [facility] (20 sources) tiZANidine; 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: [TIZANIDINE] Drug Allergy 3 Mental Status Change, Other: See Comments [facility] Work Phone: (1 source) Penicillin; 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: [penicillin] Drug Allergy [facility] (1 source) Sulfamethoxazole; 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: [sulfamethoxazole ] Drug Allergy [facility] (1 source) Amoxicillin Drug Allergy 5 [facility] (1 source) Aspirin Drug Allergy [facility] Repository Medications Current Medications Medication Drug Class(es) Dates Sig (Normalized) Sig (Original) acetaminophen 500 mg oral tablet (3 sources) Start: 05-06-2024 take 2 tablets by mouth every eight hours as needed for pain Acetaminophen 500 mg Tablet Active 1000 mg PO EVERY 8 HOURS as needed for fever or pain 0 May 06, 2024 1:30pm acetaminophen 325 mg / oxyCODONE hydrochloride 5 mg oral tablet (20 sources) Opioid Agonist Start: 08-21-2024 take 1 tablet by mouth every six hours as needed for pain Oxycodone-Acetamino phen 5-325 mg tablet Active 1 {tbl} PO EVERY 6 HOURS NEEDED as needed for Pain 12 August 21, 2024 Start: 06-10-2024 End: 07-01-2024 Oxycodone-Acetaminophen 5-32 5 mg tablet Discontinued 1 {tbl} PO daily as needed for pain June 10, 2024 12:00am July 01, 2024 7:54am Start: 05-11-2024 End: 06-10-2024 take 1 tablet by mouth twice daily as needed for pain and pain oxyCODONE-acetaminophen (PERCOCET) 5-325 mg tablet Indications: Rib pain on right side , Severe low back pain , DDD (degenerative disc disease), lumbar Take 1 tablet by mouth two times a day as needed (for severe back pain and foot pain) for up to 30 days. 30 tablet 05/11/2024 06/10/2024 Discontinued Start: 05-04-2024 End: 05-04-2024 Oxycodone-Acetaminophen (Per cocet) 5-325 mg tablet Discontinued 1 {tbl} PO EVERY 6 HOURS as needed for pain 12 May 04, 2024 May 04, 2024 10:02pm Start: 07-01-2022 End: 09-15-2022 oxyCODONE-acetaminophen (PER COCET) 5-325 mg tablet Indications: DDD (degenerative disc disease), lumbar , Acute pain of left knee , Sprain of left knee, unspecified ligament, initial encounter , Severe low back pain Last filled February07/01/2022 09/15/2022 Discontinued Start: 12-07-2020 End: 11-22-2021 oxyCODONE-acetaminophen (PER COCET) 5-325 mg tablet Take 5-325 mg by mouth twice daily. As needed 0 12/07/2020 11/22/2021 Discontinued Start: 12-07-2020 End: 05-04-2024 Oxycodone-Acetaminophen 5-32 5 mg tablet Discontinued 1 {tbl} PO Q8H as needed for severe pain (scale score 7-10) December 07, 2020 1:00am May 04, 2024 10:02pm Start: 12-07-2020 take 1 tablet by lg th every eight hours Oxycodone-Acetaminophen Active 1 TABLET PO Q8H December 07, 2020 1:00am Start: 12-07-2020 take 1 tablet by lg th twice daily as needed Oxycodone-Acetaminophen Active 1 TABLET PO TWICE DAILY NEEDED December 07, 2020 1:00am Start: 12-07-2020 take 1 tablet by lg th once daily Oxycodone-Acetaminophen Active 1 TABLET PO DAILY December 07, 2020 12:00am Start: 11-18-2018 End: 07-11-2020 Oxycodone-Acetaminophen 1 TA BLET tablet Discontinued 1 {tbl} PO EVERY 6 HOURS NEEDED as needed for Pain November 18, 2018 1:00am July 11, 2020 10:33am Start: 11-18-2018 End: 07-11-2020 take 1 tablet by mouth every six hours as needed Oxycodone-Acetaminophen Discontinued 1 TABLET PO EVERY 6 HOURS NEEDED November 18, 2018 1:00am July 11, 2020 10:33am Comment on above: Take 5-325 mg by lg th twice daily. As needed Take 1 tablet by lg th every 8 hours as needed (for severe back pain) for up to 7 days. Last filled February Take 1 tablet by lg th every 8 hours as needed for pain for up to 7 days. Take 1 tablet by lg th every 8 hours as needed (for severe back pain and foot pain) for up to 7 days. albuterol MDI (90 mcg/inh) [facility] free inhalation aerosol (1 source) Start: 024 take 1 puff(s) by inhalation every four hours as needed for wheezing albuterol MDI (90 mcg/inh) CFC free inhalation aerosol 1 puff(s), Inhalation, q4h, PRN as needed for wheezing, # 18 gram(s), 0 Refill(s) Start Date: 01/28/24 Status: Ordered Blood-Glucose Meter (Onetouch Verio Flex Meter) [facility] (3 sources) Start: Blood-Glucose Meter (Onetouch Verio Flex Meter) [facility] Active NMA .ROUTE .MEDSUPPLY July 01, 2024 12:00am As directed Blood-Glucose Meter monitoring kit (1 source) Start: End: Blood-Glucose Meter monitoring kit Glucose Meter of [...] oral capsule (20 sources) Vitamin D Start: take 1 capsule by mouth once daily Cholecalciferol (Vitamin D3) 50 mcg (2,000 unit) capsule Active 50 ug PO DAILY April 13, 2024 12:00am Start: 04-06-2024 End: 12-07-2024 take 1 capsule by mouth once daily Cholecalciferol, Vitamin D3, 50 mcg (2,000 unit) cap Indications: Vitamin D deficiency Take 1 capsule by mouth once daily. 90 capsule 3 12/07/2024 Active diclofenac sodium 0.01 mg/mg topical gel (20 sources) Nonsteroidal Anti-inflammatory Drug Start: 06-17-2021 End: 12-07-2024 diclofenac (VOLTAREN ARTHRITIS PAIN) 1 % topical gel Indications: Chronic pain of left knee , Sprain of left knee, unspecified ligament, initial encounter Apply 2 g to affected area four times daily. Takes as needed 100 g 11 12/07/2024 Active Comment on above: Apply 2 g to affecte d area four times daily. docusate sodium 100 mg oral capsule (3 sources) Start: 08-21-2024 take 1 capsule by mouth twice daily Docusate Sodium (Colace) 100 mg capsule Active 100 mg PO TWICE A DAY 60 August 21, 2024 12:00am donepezil hydrochloride 10 mg oral tablet (20 sources) Start: 02-09-2025 End: 02-09-2025 take 1 tablet by mouth once daily after breakfast donepezil (ARICEPT) 10 mg tablet Take 1 tablet by mouth daily after breakfast. 30 tablet 2 02/09/2025 Active Start: 11-10-2024 End: 02-09-2025 take 1 mg by mouth once daily Donepezil 5 mg tablet Ac tive mg PO DAILY December 09, 2024 1:00am doxycycline hyclate 100 mg oral tablet (20 sources) Tetracycline-class Drug Start: 05-12-2023 End: 05-22-2023 take 1 tablet by mouth twice daily [...] days. 20 tablet 0 05/07/2022 05/17/2022 Active Start: 09-19-2019 End: 11-04-2019 take 1 tablet by mouth twice daily Doxycycline Hyclate 100 mg tablet Discontinued 100 mg PO TWICE A DAY September 19, 2019 1:00am November 04, 2019 2:14pm Comment on above: Take 1 tablet by lg twice daily for 10 days. 14 actuat fluticasone furoate 0.1 mg/actuat / vilanterol 0.025 mg/actuat dry powder inhaler (20 sources) Corticosteroid, beta2-Adrenergic Agonist Start: 06-29-2024 fluticasone-vilanterol (BREO ELLIPTA) 100-25 mcg/dose inhaler Inhale 1 Inhalation as instructed once daily. 180 Each 3 06/29/2024 Active Start: 09-25-2016 End: 01-05-2017 take 1 puff(s) by inhalation twice daily BREO ELLIPTA 200-25 MCG/INH AEPB inh one puff twice daily FLUTICASONE FUROATE-VILANTEROL [id number] Leeanna Mascorro CNP Magnesium complex 400 mg (1 source) Start: 01-28-2024 take 1 dose by mouth once daily Magnesium complex 400 mg Dose = 400 mg, Oral, Daily, 0 Refill(s) Start Date: 01/28/24 Status: Ordered magnesium oxide 400 mg oral tablet (20 sources) Start: 04-13-2024 Magnesium Oxid e 400 mg magnesium tablet Active 250 mg PO DAILY April 13, 2024 10:01am Start: 04-06-2024 End: 12-07-2024 take 1 tablet by mouth once daily at bedtime Magnesium Oxide 250 mg magnesium tab Indications: Hypomagnesemia Take 1 tablet by mouth daily at bedtime. 90 tablet 3 12/07/2024 Active Start: 01-29-2024 End: 04-13-2024 take 1 tablet by mouth once daily Magnesium Oxide 400 mg magnesium tablet Discontinued 400 mg PO DAILY January 29, 2024 12:00am April 13, 2024 10:03am Start: 06-17-2022 End: 01-13-2024 take 1 tablet by mouth once daily Magnesium Oxide 400 mg magnesium Tablet Discontinued 400 mg PO DAILY June 17, 2022 12:00am January 13, 2024 10:06am Start: 11-18-2017 End: 03-22-2024 take 1 capsule by mouth once daily magnesium oxide 400 mg magnesium cap Take 400 mg by mouth once daily. 0 11/18/2017 03/22/2024 Discontinued Comment on above: Take 400 mg by mouth once daily. mecobalamin 1 mg chewable tablet (3 sources) Start: 4 take 1 tablet by mouth once daily Mecobalamin (Vitamin B12) 1,000 mcg tablet,chewable Active 1000 ug PO DAILY April 13, 2024 12:00am montelukast 10 mg oral tablet (20 sources) Leukotriene Receptor Antagonist Start: End: 4 take 1 tablet by mouth once daily in the evening Montelukast 10 mg tablet Active 10 mg PO EVERY EVENING July 26, 2024 11:36am Start: 04-04-2022 take 1 tablet by lg th once daily in the evening Montelukast (Singulair) 10 mg tablet Active 10 MG PO EVERY EVENING April 04, 2022 12:00am Start: 02-24-2019 End: 05-23-2019 take 1 tablet by mouth once daily in the evening Montelukast (Singulair) 10 mg tablet Discontinued 10 mg PO EVERY EVENING February 24, 2019 12:00am May 23, 2019 1:09pm nitrofurantoin, macrocrystals 25 mg / nitrofurantoin, monohydrate 75 mg oral capsule (20 sources) Nitrofuran Antibacterial Start: 03-13-2025 take 1 capsule by mouth every other day nitrofurantoin monohydrate and macrocrystal (MACROBID) 100 mg capsule Indications: Frequent UTI Take 1 capsule by mouth every other day. 45 capsule 03/13/2025 Active Start: 02-07-2025 End: 02-12-2025 take 1 capsule by mouth twice daily nitrofurantoin monohydrate and macrocrystal (MACROBID) 100 mg capsule Take 1 capsule by mouth two times a day for 5 days. 10 capsule 02/07/2025 02/12/2025 Active Start: 01-05-2025 End: 01-10-2025 take 1 capsule by mouth twice daily nitrofurantoin monohydrate and macrocrystal (MACROBID) 100 mg capsule Take 1 capsule by mouth two times a day for 5 days. 10 capsule 01/05/2025 01/10/2025 Active Start: 09-08-2024 End: 09-15-2024 take 1 capsule by mouth twice daily nitrofurantoin monohydrate and macrocrystal (MACROBID) 100 mg capsule Indications: Dysuria Take 1 capsule by mouth two times a day for 7 days. 14 capsule 09/08/2024 09/15/2024 Active Start: 07-01-2024 End: 08-20-2024 take 1 capsule by mouth twice daily Nitrofurantoin Monohyd/M-Cryst 100 mg capsule Discontinued 1 NMA PO TWICE A DAY July 01, 2024 12:00am August 20, 2024 8:47pm Start: 06-10-2024 End: 06-16-2024 take 1 capsule by mouth every twelve hours at mealtime Nitrofurantoin Monohyd/M-Cryst (Macrobid) 100 mg capsule Discontinued 100 mg PO Q12H 14 7 June 10, 2024 12:00am June 16, 2024 12:00am June 16, 2024 9:06pm must administer with a meal/food Start: 01-05-2024 End: 01-22-2024 take 1 capsule by mouth twice daily Nitrofurantoin Monohyd/M-Cryst 100 mg capsule Discontinued 100 mg PO TWICE A DAY January 13, 2024 12:00am January 22, 2024 6:38am Start: 04-03-2023 End: 05-12-2023 take 1 capsule [...] 10 capsule 0 12/04/2022 12/09/2022 Active Start: 08-04-2022 End: 08-11-2022 take 1 capsule by mouth every twelve hours at mealtime Nitrofurantoin Monohyd/M-Cryst (Macrobid) 100 mg capsule Discontinued 100 mg PO Q12H 14 7 August 04, 2022 12:00am August 10, 2022 12:00am August 11, 2022 12:03am must administer with a meal/food Start: 08-10-2017 End: 08-17-2017 NITROFURANTOIN MACROCRYSTAL 100 MG CAPS Take 1 capsule every 12 hours NITROFURANTOIN MACROCRYSTAL [id number] Soren JENKINS Comment on above: Take 1 capsule by [facility] twice daily for 5 days. Take 1 capsule by [facility] twice daily. Take as directed for UTI 24 hr oxybutynin chloride 10 mg extended release oral tablet (20 sources) Cholinergic Muscarinic Antagonist Start: 04-13-2024 take 1 tablet by mouth once daily Oxybutynin Chloride 10 mg tablet extended release 24hr Active 10 mg PO DAILY April 13, 2024 12:00am Start: 04-05-2024 take 1 tablet by [facility] every hour oxybutynin ER (DITROPAN XL) 10 mg 24 hr tablet Take 1 tablet by mouth every afternoon. 04/05/2024 Active oxyCODONE hydrochloride 5 mg oral tablet (20 sources) Opioid Agonist Start: 07-06-2024 End: 07-13-2024 take 1 tablet by mouth twice daily as needed oxyCODONE IR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 tablet by lg once daily as needed. for blood sugar over 200. (Has pills left from 2017) lidocaine 0.05 mg/mg medicated patch (13 sources) Antiarrhythmic, Amide Local Anesthetic Start: 05-11-20 End: 06-22-20 apply 1 dose transdermal route every twenty-four hours, then apply 1 dose transdermal route every twelve hours lidocaine (LIDODERM) 5 % Apply 1 Patch as directed every 24 hours. Remove patch after 12 hours. Location: Back/ribs 30 Patch 1 05/11/2024 06/22/2024 Discontinued (Cost of medication) lisinopril 5 mg oral tablet (20 sources) Angiotensin Converting Enzyme Inhibitor Start: 11-03-19 End: 02-14-20 18 take 1 tablet by mouth once daily Lisinopril 5 mg tablet Discontinued 5 mg PO daily November 03, 2017 1:00am February 13, 2018 12:09pm Start: 04-30-2016 End: 01-07-2017 take 1 tablet by mouth once daily Lisinopril (Prinivil) 5 MG tablet Discontinued 5 mg PO DAILY December 23, 2016 1:00am December 25, 2016 12:58pm losartan potassium 50 mg oral tablet (20 sources) Angiotensin 2 Receptor Jourdan Start: 05-16-2019 End: 12-14-2019 take 1 tablet by mouth twice daily Losartan 50 mg tablet Discontinued 50 mg PO TWICE A DAY 180 December 05, 2019 5:00pm December 11, 2019 11:06pm Start: 02-13-2018 End: 05-16-2019 take 1 tablet by mouth once daily Losartan 50 mg tablet Discontinued 50 mg PO daily 90 October 14, 2018 12:35pm November 18, 2018 8:49pm Start: 08-14-2017 End: 02-13-2018 take 2 tablets by mouth once daily Losartan 25 MG tablet Discontinued 50 mg PO DAILY August 14, 2017 4:57pm February 13, 2018 12:09pm Start: 08-14-2017 End: 02-13-2018 take 50 mg by mouth once daily Losartan Discontinued 5 0 MG PO DAILY August 14, 2017 4:57pm February 13, 2018 12:09pm Start: 01-07-2017 take 1 tablet by lg th once daily LOSARTAN POTASSIUM 50 MG TABS One tablet by mouth daily LOSARTAN POTASSIUM [id number] Grant Ko MD Start: 12-25-2016 End: 08-14-2017 take 1 tablet by mouth once daily Losartan 25 MG tablet Discontinued 25 mg PO DAILY December 25, 2016 1:00am August 14, 2017 4:57pm Magnesium (20 sources) Start: 01-13-2024 End: 01-29-2024 take 1 tablet by mouth once daily Magnesium 250 mg tablet Discontinued 250 mg PO DAILY January 13, 2024 12:00am January 29, 2024 4:58pm Start: 01-13-2024 End: 01-29-2024 take 250 mg by mouth once daily Magnesium Discontinued 250 MG PO DAILY January 13, 2024 12:00am January 29, 2024 4:58pm Start: 01-13-2024 take 250 mg by mouth once catalina y Magnesium Active 250 MG PO DAILY January 13, 2024 12:00am Start: 11-03-2017 End: 11-18-2017 take 250 mg by mouth once daily Magnesium Discontinued 250 MG PO daily November 03, 2017 11:03am November 18, 2017 3:36pm Start: 11-03-2017 End: 11-18-2017 take 1 tablet by mouth once daily Magnesium 250 mg tablet Discontinued 250 mg PO daily November 03, 2017 1:00am November 18, 2017 3:36pm Start: 11-03-2017 End: 11-18-2017 take 250 mg by mouth once daily Magnesium Discontinued 250 MG PO daily November 03, 2017 12:00am November 18, 2017 2:36pm Start: 11-03-2017 End: 11-18-2017 take 250 mg by mouth once daily Magnesium Discontinued 250 MG PO daily November 03, 2017 1:00am November 18, 2017 3:36pm 24 hr metFORMIN hydrochloride 500 mg extended release oral tablet (20 sources) Biguanide Start: 04-13-2024 End: 05-06-2024 take 1 tablet by mouth twice daily Metformin 500 mg tablet extended release 24 hr Discontinued 500 mg PO TWICE A DAY April 13, 2024 10:02am May 06, 2024 1:32pm Start: 01-28-2024 MetFORMIN (Eqv -Fortamet) 1000 mg oral tablet, EXTENDED RELEASE Dose : 1,000 mg = 1 tab(s), Oral, BID, Okay to substitute for generic Glucophage XR, # 60 tab(s), 0 Refill(s) Start Date: 01/28/24 Status: Ordered Start: 06-17-2022 End: 04-13-2024 Metformin 500 mg tablet exte nded release 24 hr Discontinued 1000 mg PO TWICE A DAY June 17, 2022 12:00am April 13, 2024 10:03am Start: 06-10-2021 End: 05-10-2024 take 1 tablet [...] tablet by mouth twice daily METFORMIN HCL [id number] Lisandra Walsh RN Start: 04-30-2016 METFORMIN HCL ER (MOD) 500 MG [id number] Two tabs twice daily with meals METFORMIN HCL [id number] Clarisse Bai Start: 09-23-2015 End: 02-13-2018 take 2 tablets by mouth twice daily Metformin 500 MG tablet Discontinued 1000 mg PO TWICE A DAY September 23, 2015 1:00am February 13, 2018 12:11pm Start: 09-23-2015 End: 02-13-2018 take 1000 mg by mouth twice daily Metformin Discontinued 1000 MG PO TWICE A DAY September 23, 2015 1:00am February 13, 2018 12:11pm Comment on above: Take 2 tablets by mo ut twice daily with meals. methocarbamol 500 mg oral tablet (9 sources) Muscle Relaxant Start: 2022 End: 2022 take 1 tablet by mouth every eight hours as needed methocarbamol (ROBAXIN) 500 mg tablet Take 1 tablet by mouth three times daily as needed (Pain/muscle spasms). 30 tablet 2 06/22/2023 09/30/2023 Discontinued Comment on above: Take 1 tablet by lg th three times daily as needed (Pain/muscle spasms). [...] MG TBPK Take with f ood METHYLPREDNISOLONE [id number] Clarisse Wilder PRODUCT SAFETY HEAD Start: 09-25-2016 MEDROL 4 MG TB PK Take with food METHYLPREDNISOLONE [id number] Clarisse Bai Comment on above: As Instructed per [facility] naproxen sodium 220 mg oral tablet (4 sources) Nonsteroidal Anti-inflammatory Drug Start: 016 End: 017 ALEVE 220 MG TABS Two tabs twice daily as needed NAPROXEN SODIUM [id number] Clarisse Bai nitrofurantoin, macrocrystals 100 mg oral capsule (20 sources) Nitrofuran Antibacterial Start: 024 End: take 1 capsule by mouth twice daily at mealtime Nitrofurantoin Macrocrystal 100 mg capsule Discontinued 100 mg PO TWICE A DAY 10 May 06, 2024 12:00am June 10, 2024 10:39am must administer with a meal/food Start: 08-14-2017 End: 10-29-2017 take 1 capsule by mouth every twelve hours Nitrofurantoin Macrocrystal 100 MG capsule Discontinued 100 mg PO Q12H August 14, 2017 12:00am October 29, 2017 8:10am Hurricane (20 sources) Start: 11-18-2018 End: 02-10-2019 take 50 mg by mouth twice daily Hurricane Discontinued 50 MG PO TWICE A DAY November 18, 2018 7:49pm February 10, 2019 11:57am Start: 11-18-2018 End: 02-10-2019 take 50 mg by mouth twice daily Hurricane Discontinued 50 MG PO TWICE A DAY November 18, 2018 8:49pm February 10, 2019 12:57pm Hurricane 50 mg tablet (3 sources) Start: 11-18-2018 End: 02-10-2019 take 1 tablet by mouth twice daily Hurricane 50 mg tablet Discontinued 50 mg PO TWICE A DAY November 18, 2018 8:49pm February 10, 2019 12:57pm ondansetron 4 mg disintegrating oral tablet (20 sources) Serotonin-3 Receptor Antagonist Start: 06-17-2022 End: 08-04-2022 take 1 tablet by mouth every eight hours as needed for nausea and vomiting Ondansetron 4 mg tablet,disintegratin g Discontinued 4 mg PO Q8H as needed for nausea and vomiting June 17, 2022 12:00am August 04, 2022 9:16am phenazopyridine hydrochloride 100 mg oral tablet (20 sources) Start: 08-14-2017 End: 10-29-2017 take 1 tablet by mouth three times daily Phenazopyridine 100 MG tablet Discontinued 100 mg PO THREE TIMES A DAY August 14, 2017 12:00am October 29, 2017 8:10am Start: 08-10-2017 End: 08-13-2017 PYRIDIUM 100 MG TABS Take on e tablet every 8 hours as needed. PHENAZOPYRIDINE HCL [id number] Soren JENKINS potassium gluconate 2.5 meq oral tablet (20 sources) Start: 11-03-2017 End: 02-13-2018 take 1 tablet by mouth once daily Potassium 99 mg tablet Discontinued 99 mg PO daily November 03, 2017 1:00am February 13, 2018 12:10pm predniSONE 20 mg oral tablet (20 sources) Start: 04-16-2023 End: 06-12-2023 take 3 tablets by mouth once daily at mealtime Prednisone 20 mg tablet Discontinued 60 mg PO daily April 16, 2023 12:00am June 12, 2023 10:08am administer with food or milk Start: 04-16-2023 End: 06-12-2023 take 60 mg by mouth once daily at mealtime Prednisone Discontinued 60 MG PO daily April 16, 2023 12:00am June 12, 2023 10:08am administer with food or milk Start: 05-06-2022 End: 05-11-2022 take 2 tablets by mouth once daily predniSONE (DELTASONE) 20 mg tablet Indications: Mild intermittent asthma with acute exacerbation Take 2 tablets by mouth once daily for 5 days. 10 tablet 0 05/06/2022 05/11/2022 Start: 11-03-2017 End: 02-13-2018 take 4 tablets by mouth once daily, then take 3 tablets by mouth once daily, then take 2 tablets by mouth once daily, then take 1 tablet by mouth once daily Prednisone 10 mg tablet Discontinued 10 mg PO .COMPLEX November 03, 2017 1:00am February 13, 2018 12:10pm Take 4 tabs daily for 3 days followed by 3 tab daily for 3 days followed by 2 tab daily for 3 days followed by 1 tab daily for 3 days Comment on above: Take 2 tablets by mo [facility] once daily for 5 days. TENS UNIT ELECTRODES (TENS UNITS ELECTRODES) 2X2 pads (20 sources) Start: 03-01-2015 End: 09-10-2023 TENS UNIT ELECTRODES (TENS UNITS ELECTRODES) 2X2 pads Indications: Back strain , DDD (degenerative disc disease) Change pad every month as indicated 4 Each 11 03/01/2015 09/10/2023 Discontinued Start: 03-01-2015 TENS UNIT ELEC TRODES (TENS UNITS ELECTRODES) 2X2 pads Indications: Back strain , DDD (degenerative disc disease) Change pad every month as indicated 4 Each 03/01/2015 Active Comment on above: Change pad every thu as indicated Tens Unit Electrodes pad (3 sources) Start: 0 End: 4 Tens Unit Electrodes pad Discontinued 0 .ROUTE .MEDSUPPLY 2 July 11, 2020 12:00am May 04, 2024 10:02pm As directed tiZANidine 4 mg oral tablet (1 source) Central alpha-2 Adrenergic Agonist Start: 3 take 1 tablet by mouth every eight hours as needed tiZANidine (ZANAFLEX) 4 mg tablet Take 1 tablet by mouth every 8 hours as needed. 90 tablet 1 09/30/2023 Active Comment on above: Take 1 tablet by lg every 8 hours as needed. Problems Active Problems Problem Classification Problem Date Documented Da te Episodic/Chronic Allergic reactions (2 sources) Flexural atopic dermatitis; 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: [Other atopic dermatitis] Onset: 03-13-2025 03-13-2025 Chronic Anxiety disorders (2 sources) Indifference; 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: [Demoralization and apathy] 08-03-2024 Episodic Asthma (20 sources) Asthma; 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: [Exacerbation of asthma] Onset: 01-05-2017 01-05-2017 Chronic Comment on above: FEV1 60% Lemon (20 sources) Partial thickness burn; 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: [Partial thickness burn] 05-09-2023 Episodic Cardiac dysrhythmias (20 sources) Atrial fibrillation; 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: [Persistent atrial fibrillation] Onset: 01-05-2017 01-05-2017 Chronic Comment on above: ON WARFARIN Cardiac dysrhythmias (20 sources) Palpitations; 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: [Palpitations] 03-02-2006 Episodic Chronic ulcer of skin (20 sources) Ulcer of lower extremity; 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: [Non-pressure chronic ulcer of unspecified part of right lower leg with fat layer exposed] Onset: 07-26-2023 12-11-2019 Chronic Coagulation and hemorrhagic disorders (20 sources) Blood coagulation disorder; 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: [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ng anticoagulants] Onset: 09-23-2023 09-01-2023 Chronic Conditions associated with dizziness or vertigo (20 sources) Dizziness and giddiness; 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: [Dizziness and giddiness] Resolved: 09-23-2023 03-02-2006 Episodic Conduction disorders (20 sources) Cardiac pacemaker in situ; 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: [Presence of cardiac pacemaker] Onset: 04-01-2019 Chronic Comment on above: Implant @ [facility] by Dr. Freed 04/01/19 Deficiency and other anemia (13 sources) Anemia; 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: [Anemia, unspecified] 10-02-2023 Episodic Delirium, dementia, and amnestic and other cognitive disorders (13 sources) Dementia; 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: [Mild dementia without behavioral disturbance, psychotic disturbance, mood disturbance, or anxiety, unspecified dementia type (HCC)] Onset: 02-07-2025 11-10-2024 Chronic Diabetes mellitus without complication (20 sources) Diabetes mellitus; 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: [Type 2 diabetes mellitus without complications] Onset: 10-02-2015 01-07-2017 Chronic Comment on above: ON MED Disorders of lipid metabolism (20 sources) Dyslipidemia; 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: [Hyperlipidemia] Onset: 12-19-2010 01-07-2017 Chronic Comment on above: ON MED E Codes: Adverse effects of medical drugs (13 sources) Adverse reaction to drug; 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: [Adverse effect of unspecified drugs, medicaments and biological substances, initial encounter] 10-02-2023 Episodic Essential hypertension (20 sources) Essential hypertension; 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: [Essential (primary) hypertension] Chronic Fluid and electrolyte disorders (1 source) Dehydration; 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: [Dehydration] 03-14-2024 Episodic Fracture of upper limb (20 sources) Closed fracture of neck of radius; 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: [Displaced fracture of neck of left radius, initial encounter for closed fracture] 11-09-2023 Episodic Fracture of upper limb (6 sources) Fracture of unspecified carpal bone, right wrist, initial encounter for closed fracture; 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: [Fracture of right wrist] 08-21-2024 Episodic Genitourinary congenital anomalies (20 sources) Renal pelvis and ureter obstructive defects; 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: [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] Onset: 09-29-2005 09-29-2005 Chronic Genitourinary symptoms and ill-defined conditions (3 sources) Incontinence without sensory awareness; 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: [Incontinence without sensory awareness] 01-05-2024 Chronic Heart valve disorders (20 sources) Heart murmur; 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: [Cardiac murmur, unspecified] Episodic Intestinal infection (1 source) Infectious diarrheal disease; 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: [Infectious gastroenteritis and colitis, unspecified] Episodic Malaise and fatigue (20 sources) Asthenia; 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: [Weakness] 06-25-2022 Episodic Mood disorders (3 sources) Moderate recurrent major depression; 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: [Major depressive disorder, recurrent, moderate] 08-03-2024 Chronic Nausea and vomiting (20 sources) Nausea and vomiting; 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: [Nausea with vomiting, unspecified] 06-25-2022 Episodic Nonspecific chest pain (20 sources) Central chest pain; 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: [Chest pain, unspecified] 02-05-2019 Episodic Nutritional deficiencies (5 sources) Vitamin D deficiency; 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: [Vitamin D deficiency, unspecified] Onset: 12-07-2024 03-22-2024 Chronic Nutritional deficiencies (2 sources) Cobalamin deficiency; 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: [Deficiency of other specified B group vitamins] 04-06-2024 Episodic Open wounds of head; neck; and trunk (4 sources) Scalp laceration; 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: [Laceration without foreign body of scalp, sequela] 05-11-2024 Episodic Osteoarthritis (6 sources) Arthritis; 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: [Unspecified osteoarthritis, unspecified site] 06-20-2024 Chronic Other aftercare (20 sources) Long-term current use of anticoagulant; 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: [USP (current) use of anticoagulants] 09-29-2019 Episodic Other aftercare (8 sources) Patient encounter status; 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: [Other safety equipment tester (current) drug therapy] Episodic Other aftercare (2 sources) 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; 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: [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] Onset: 03-23-2025 Episodic Other circulatory disease (20 sources) H/O: atrial fibrillation; 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: [Personal history of other diseases of the circulatory system] 06-24-2022 Episodic Other circulatory disease (12 sources) History of heart block; 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: [Personal history of other diseases of the circulatory system] 11-09-2023 Episodic Other connective tissue disease (20 sources) Spasm; Translations: [Other muscle spasm] 03-28-2014 Episodic Other connective tissue disease (19 sources) Foot pain; Translations: [Pain in left foot] 05-28-2023 Episodic Other connective tissue disease (20 sources) Pain in left foot; Translations: [Pain in limb] 06-25-2023 Episodic Other connective tissue disease (3 sources) Pain in left arm; Translations: [Pain in left arm] 01-04-2025 Episodic Other diseases of kidney and ureters (8 sources) Mass of urinary system structure; Translations: [Other specified disorders of kidney and ureter] 12-30-2023 Chronic Other diseases of kidney and ureters (1 source) Other specified disorders of kidney and ureter; Translations: [Other specified disorders of kidney and ureter] 12-31-2023 Chronic Other diseases of kidney and ureters (12 sources) Hydronephrosis; Translations: [Unspecified hydronephrosis] 12-30-2023 Episodic Other diseases of kidney and ureters (1 source) Unspecified hydronephrosis; Translations: [Hydronephrosis] 12-31-2023 Episodic Other diseases of veins and lymphatics (1 source) Venous insufficiency (chronic) (peripheral); Translations: [Venous stasis dermatitis of left lower extremity] Onset: 03-13-2025 Episodic Other gastrointestinal disorders (1 source) Loose stool; Translations: [Other fecal abnormalities] 03-22-2024 Episodic Other hereditary and degenerative nervous system conditions (2 sources) Impaired cognition; Translations: [Mild cognitive impairment, so stated] 08-03-2024 Chronic Other hereditary and degenerative nervous system conditions (1 source) Mild cognitive impairment, so stated; Translations: [Cognitive impairment, mild, so stated] Onset: 09-28-2024 Chronic Other injuries and conditions due to external causes (20 sources) Avulsion of skin; Translations: [Other injury of unspecified body region, initial encounter] 05-29-2019 Episodic Other injuries and conditions due to external causes (15 sources) Closed injury of head; Translations: [Unspecified injury of head, initial encounter] 09-01-2023 Episodic Other injuries and conditions due to external causes (11 sources) History of fall; Translations: [History of falling] 11-26-2023 Episodic Other lower respiratory disease (3 sources) Rib pain; Translations: [Pleurodynia] 06-10-2024 Episodic Other nervous system disorders (20 sources) Disorder of brain; Translations: [Encephalopathy, unspecified] 10-08-2021 Chronic Other nervous system disorders (20 sources) Bilateral carpal tunnel syndrome; Translations: [Carpal tunnel syndrome, bilateral upper limbs] Onset: 01-21-2021 01-21-2021 Chronic Other nervous system disorders (3 sources) Other chronic pain; Translations: [Chronic pain of left knee] Onset: 09-13-2024 Chronic Other nervous system disorders (20 sources) Ataxia; Translations: [Ataxia, unspecified] 06-24-2022 Episodic Other nervous system disorders (4 sources) Ataxia, unspecified; Translations: [Lack of coordination] Episodic Other nervous system disorders (3 sources) Impaired cognition; Translations: [Other symptoms and signs involving cognitive functions and awareness] 03-22-2024 Episodic Other nervous system disorders (3 sources) Toxic metabolic encephalopathy; Translations: [Toxic metabolic encephalopathy] 06-16-2024 Episodic Other non-traumatic joint disorders (20 sources) Hip pain; Translations: [Pain in left hip] 07-11-2019 Episodic Other non-traumatic joint disorders (13 sources) Pain in left knee; Translations: [Pain in joint, lower leg] Onset: 03-13-2025 Episodic Other non-traumatic joint disorders (1 source) Pain in right knee; Translations: [Chronic pain of right knee] Onset: 03-13-2025 Episodic Other non-traumatic joint disorders (1 source) Pain in left shoulder; Translations: [Pain in left shoulder] Onset: 01-14-2025 Episodic Other nutritional; endocrine; and metabolic disorders (20 sources) Obesity; Translations: [Obesity, unspecified] Onset: 01-05-2017 Resolved: 09-23-2023 01-05-2017 Chronic Other nutritional; endocrine; and metabolic disorders (20 sources) Obesity, unspecified; Translations: [Obesity, unspecified] Chronic Other nutritional; endocrine; and metabolic disorders (20 sources) Obese class I; Translations: [Obesity, unspecified] Onset: 09-23-2023 09-23-2023 Chronic Other nutritional; endocrine; and metabolic disorders (2 sources) Hypomagnesemia; Translations: [Hypomagnesemia] 04-06-2024 Chronic Other nutritional; endocrine; and metabolic disorders (20 sources) H/O: diabetes mellitus; Translations: [Personal history of other endocrine, nutritional and metabolic disease] 06-24-2022 Episodic Other screening for suspected conditions (not mental disorders or infectious disease) (20 sources) Deviation of international normalized ratio from target range; Translations: [Abnormal coagulation profile] Episodic Other skin disorders (20 sources) Skin eschar; Translations: [Changes in skin texture] 05-21-2023 Episodic Other skin disorders (1 source) Disorder of skin of neck; Translations: [Rash and other nonspecific skin eruption] 03-13-2025 Episodic Other skin disorders (1 source) Rash and other nonspecific skin eruption; Translations: [Rash of neck] Onset: 03-13-2025 Episodic Other upper respiratory disease (20 sources) Allergic rhinitis; Translations: [Allergic rhinitis, unspecified] 03-02-2006 Chronic Other upper respiratory infections (20 sources) Viral upper respiratory tract infection; Translations: [Acute upper respiratory infection, unspecified] Episodic Pneumonia (except that caused by tuberculosis or sexually transmitted disease) (20 sources) Pneumonia; Translations: [Pneumonia, unspecified organism] 10-08-2021 Episodic Pulmonary heart disease (20 sources) Pulmonary hypertension; Translations: [Other secondary pulmonary hypertension] Onset: 01-05-2017 01-05-2017 Chronic Residual codes; unclassified (20 sources) Obstructive sleep apnea syndrome; Translations: [Obstructive sleep apnea (adult) (pediatric)] Onset: 01-21-2021 01-21-2021 Chronic Comment on above: AHI 40 Residual codes; unclassified (20 sources) Obstructive sleep apnea (adult) (pediatric); Translations: [Obstructive sleep apnea (adult)(pediatric)] Chronic Residual codes; unclassified (20 sources) H/O: major abdominal surgery; Translations: [Other specified postprocedural states] 10-08-2021 Episodic Comment on above: 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 Residual codes; unclassified (20 sources) Acute confusion; Translations: [Disorientation, unspecified] 06-24-2022 Episodic Residual codes; unclassified (20 sources) Confusional state; Translations: [Disorientation, unspecified] 06-24-2022 Episodic Residual codes; unclassified (4 sources) Memory impairment; Translations: [Other amnesia] 02-18-2024 Episodic Residual codes; unclassified (1 source) Persistent insomnia; Translations: [Insomnia, unspecified] 03-14-2024 Episodic Residual codes; unclassified (1 source) Postmenopausal state; Translations: [Asymptomatic menopausal state] 03-18-2024 Episodic Residual codes; unclassified (1 source) Hallucinations; Translations: [Hallucinations, unspecified] 06-01-2024 Episodic Residual codes; unclassified (1 source) Insomnia; Translations: [Insomnia, unspecified] 12-07-2024 Episodic Residual codes; unclassified (3 sources) Transient alteration of awareness; Translations: [Transient alteration of awareness] 06-09-2024 Episodic Skin and subcutaneous tissue infections (20 sources) Cellulitis of foot; Translations: [Cellulitis of unspecified part of limb] 05-09-2023 Episodic Spondylosis; intervertebral disc disorders; other back problems (20 sources) Degeneration of lumbar intervertebral disc; Translations: [Other intervertebral disc degeneration, lumbar region] Chronic Spondylosis; intervertebral disc disorders; other back problems (20 sources) Low back pain; Translations: [Severe low back pain] Onset: 12-28-2018 Episodic Sprains and strains (20 sources) Sprain of knee; Translations: [Sprain of unspecified site of left knee, initial encounter] Episodic Superficial injury; contusion (20 sources) Contusion of hip; Translations: [Contusion of left hip, initial encounter] 03-26-2023 Episodic Syncope (2 sources) Syncope and collapse; Translations: [Syncope and collapse] Onset: 01-28-2024 Episodic Unclassified (4 sources) Body mass index (BMI) 33.0-33.9, adult; Translations: [Obstructive sleep apnea syndrome] Onset: 01-12-2017 01-12-2017 Chronic Unclassified (2 sources) Warfarin therapy started; Translations: [USP (current) use of anticoagulants] Onset: 05-01-2017 05-01-2017 Unclassified (2 sources) Chronic pain of left knee 03-13-2025 Unclassified (1 source) Severe low back pain; Translations: [Severe low back pain] Onset: 12-28-2018 Unclassified (1 source) Low back pain, unspecified; Translations: [Low back pain, unspecified] Onset: 09-13-2024 Viral infection (20 sources) Disease caused by 2019-nCoV; Translations: [COVID-19] Episodic Past or Other Problems Problem Classification Problem Date Documented Date Episodic/Chronic Allergic reactions (20 sources) Eczema; Translations: [Dermatitis, unspecified] Onset: 09-29-2005 Resolved: 09-16-2021 Episodic Calculus of urinary tract (20 sources) Kidney stone; Translations: [Calculus of kidney] Onset: 09-29-2005 09-29-2005 Episodic E Codes: Fall (20 sources) Fall; Translations: [Unspecified fall, initial encounter] Onset: 05-07-2024 03-12-2020 Episodic Genitourinary symptoms and ill-defined conditions (9 sources) Increased frequency of urination; Translations: [Frequency of micturition] Onset: 06-18-2024 Episodic Other aftercare (20 sources) Anticoagulant effect; Translations: [USP (current) use of anticoagulants] Onset: 04-12-2019 Episodic Other aftercare (1 source) Encounter for therapeutic drug level monitoring; Translations: [Encounter for therapeutic drug monitoring] Onset: 12-07-2024 Episodic Other circulatory disease (9 sources) Personal history of other diseases of the circulatory system; Translations: [Personal history of other diseases of circulatory system] Onset: 07-26-2024 11-12-2023 Episodic Other connective tissue disease (20 sources) Calcaneal spur; Translations: [Calcaneal spur, unspecified foot] Onset: 03-10-2008 03-10-2008 Episodic Other connective tissue disease (20 sources) Unspecified rotator cuff tear or rupture of unspecified shoulder, not specified as traumatic; Translations: [Rotator cuff (capsule) sprain] Onset: 05-06-2011 05-06-2011 Episodic Other lower respiratory disease (2 sources) Dyspnea; Translations: [Dyspnea, unspecified] Onset: 01-05-2017 01-05-2017 Episodic Other lower respiratory disease (1 source) Wheezing; Translations: [Wheezing] Onset: 07-01-2024 Episodic Other nervous system disorders (1 source) Other symptoms and signs involving cognitive functions and awareness; Translations: [Cognitive impairment] Onset: 08-03-2024 Episodic Other nutritional; endocrine; and metabolic disorders (1 source) Other symptoms and signs concerning food and fluid intake; Translations: [Other symptoms and signs concerning food and fluid intake] Onset: 06-18-2024 Episodic Residual codes; unclassified (20 sources) History of atrial flutter; Translations: [Other specified postprocedural states] Onset: 04-01-2019 05-16-2019 Episodic Comment on above: @ [facility] by Dr. Freed 0 04/01/19 Residual codes; unclassified (20 sources) Other specified postprocedural states; Translations: [Other postprocedural status] Onset: 04-01-2019 Episodic Residual codes; unclassified (9 sources) Disorientation, unspecified; Translations: [Delirium due to conditions classified elsewhere] Onset: 06-18-2024 Episodic Residual codes; unclassified (1 source) Other amnesia; Translations: [Memory deficit] Onset: 06-22-2024 Episodic Unclassified (2 sources) Hypersomnia; Translations: [Hypersomnia, unspecified] Onset: 01-05-2017 01-05-2017 Episodic Unclassified (20 sources) Contact dermatitis and other eczema 06-21-2021 Urinary tract infections (20 sources) History of urinary tract infection; Translations: [Cystitis] Onset: 08-10-2017 08-10-2017 Episodic Results Test Name Value Interpretation Reference Range Facility International normalized rat io (INR) calculationOrdered By: Lisandra Cao on 03-23-2025 INR Coag (Bld) [Relative time] 1.2 {INR} [facility] Prothrombin Time w/INRon INR Coag (PPP) [Relative time] 1.2 {INR} Normal [facility] Comment on above: Performed By: #### L 300.3900 ####[facility] [id number] [facility]. [place], [place], [id number] PT Coag (PPP) [Time] 15.4 s High 11.7-14.9 [facility] Comment on above: Performed By: #### L 300.3900 ####[facility] [id number] [facility]. [place], [place], [id number] Prothrombin timeOrdered By: Lisandra Cao on 03-23-2025 PT Coag (PPP) [Time] 15.4 s High 11.7-14.9 [facility] CNPNon 03-16-2025 CNPN Telephone (INTMWS) KEISHA RED ([id number]) 1945 F Date Time Provider Department 03/16/25 WHITNEY HAMMOND INTMWS During your visit today, we recorded the following information about you: Tamy Donis LPN 03/16/2025 11:14 AM Signed Patient calling asking for her knee xray results. Aware SUBSTATION SUPERVISOR is out of the office on . Please advise 03/15/2025 8:33 PM - Radiology, Oru In Impression IMPRESSION: Medial compartment predominant osteoarthritis. Parquet Floor Layer'S Helper: JULIOCESAR Transcribe Date/Time: Mar 15 2025 8:30P Dictated by : CONNIE YO MD This examination was interpreted and the report reviewed and electronically signed by: CONNIE YO MD on Mar 15 2025 8:31PM EST Results-Findings * * *Final Report* * * DATE OF EXAM: Mar 13 2025 8:59AM WOX [id number] - XR KNEE 4V AP/PA BOTH+LAT/APRIL RT / PROCEDURE REASON: multiple diagnoses * * * * Physician Interpretation * * * * EXAMINATION / TECHNIQUE: XR KNEE 4V AP/PA BOTH+LAT/APRIL RT HISTORY: Chronic worsening right knee pain, no known injury. Chronic pain of left knee Chronic pain of left knee Chronic pain of right knee Chronic pain of right knee COMPARISON: None. RESULT: No acute fracture or dislocation. Moderate to severe medial compartment osteoarthritis. Chondrocalcinosis. No significant joint effusion. Whitney Hammond APRN.RADAR ENGINEERING TEACHER 03/17/2025 7:23 AM Signed Her xray shows a moderate to severe arthritis. We can do a short term steroid to help reduce inflammation or a steroid injection in to the joint. We could also consider referring to PT or ortho. Let me know what she wants to do. Thanks! Shena Georges MA 03/17/2025 11:17 AM Signed Call to pt and notified her of results. Pt is agreeable to a steroid injection. Pt has been scheduled with Whitney for 03/24/25 at 9:00 am. JAVIER Kulkarni Sherrie, RN 03/21/2025 1:03 PM Signed Patient's daughter Dian calling in. Pt has appt with Whitney on 03/24/25, and pt also has appt that day to get steroid injection in her back by Dr. Calero. Daughter requesting to reschedule appt with Whitney, however before rescheduling, asking when would it be appropriate for pt to receive a steroid injection in her knee by Whitney, after receiving one in her back on 03/24 by other provider? Please call daughter back to schedule pt with Whitney for knee injection, when appropriate. VLAD John Rosa, APRN.DOMINGO 03/22/2025 2:53 PM Signed Due to her diabetes I would recommend waiting a few weeks after the first steroid injection before getting the second. Carolina Kuo LPN 03/22/2025 3:14 PM Signed Attempted to reach Dian with no answer and call dropped after 3 rings. Yuko Ordonez RN 03/24/2025 3:35 PM Signed Patient's daughter calls and states that patient just had back injection today by Dr. Calero. Daughter states that Dr. Calero had told patient to wait 2 weeks until getting a knee injection. Yuko Ordonez RN Allergies As of Date: 03/16/2025 Noted Allergy Reaction TIZANIDINE 10/07/2023 1 - Mental Status Change 14 - Other: See Comments Comments: Made her feel like in another world. Very dry mouth. Stumbling/falling AMOXICILLIN 07/14/2005 4 - Hives ASPIRIN 01/30/2009 Comments: Hives, shortness of breath SULFA (SULFONAMIDE ANTIBIOTICS) 07/14/2005 4 - Hives Date Reviewed: 03/13/2025 Reviewed by: Whitney Hammond APRN.RADAR ENGINEERING TEACHER - Fully Assessed Reason for Visit: knee xray results [Other] Prescriptions as of 03/24/2025 - glimepiride (AMARYL) 2 mg tablet Take 1 tablet by mouth two times a day with meals. - atorvastatin (LIPITOR) 10 mg tablet Take 1 tablet by mouth once daily. - nitrofurantoin monohydrate and macrocrystal (MACROBID) 100 mg capsule Take 1 capsule by mouth every other day. - triamcinolone acetonide (KENALOG) 0.1 % cream Apply 1 application to affected area three times a day as needed. For rash - donepezil (ARICEPT) 10 mg tablet Take 1 tablet by mouth daily after breakfast. - sertraline (ZOLOFT) 50 mg tablet Take 1 tablet by mouth once daily. Please take half pill for a week and then increase to a full pill - diclofenac (VOLTAREN ARTHRITIS PAIN) 1 % topical gel Apply 2 g to affected area four times daily. Takes as needed - Magnesium Oxide 250 mg magnesium tab Take 1 tablet by mouth daily at bedtime. - Cholecalciferol, Vitamin D3, 50 mcg (2,000 unit) cap Take 1 capsule by mouth once daily. - cyanocobalamin (VITAMIN B-12) 1,000 mcg tab Take 1 tablet by mouth once daily. - gabapentin (NEURONTIN) 300 mg capsule Take 2 capsules by mouth daily at bedtime AND 1 capsule every morning. Do all this for 180 days. - oxyCODONE IR (ROXICODONE) 5 mg immediate release tablet Take by mouth every 8 hours as needed for pain. Managed by Dr. Mora, Pain Management manages - fluticasone-vilanter ol (BREO ELLIPTA) 100-25 mcg/dose inhaler Inhale (more content not included)... Normal [facility] CNOVon 03-13-2025 CNOV Office Visit (INTMWS) KEISHA RED ([id number]) 1945 F Date Time Provider Department 03/13/25 7:20 AM WHITNEY HAMMOND INTMWS During your visit today, we recorded the following information about you: Pulse Blood pressure Weight 80/minute 120/72 85.3 kg Whitney Hammond APRN.RADAR ENGINEERING TEACHER 03/13/2025 8:45 AM Signed SUBJECTIVE Keisha Red is a 80 year old female here today for a check up on her medical problems. Chief Complaint Patient presents with: F/U 3 Month: pain in knees no recent x-ray HPI Keisha is a 80-year-old female with a history of recurrent UTIs, presenting for a 3-month follow-up. She is accompanied by her daughter, who is providing additional history. Keisha reports recurrent UTIs, for which she has been visiting urgent care. She mentions a recommendation to start a prophylactic antibiotic regimen due to the frequency of infections. She denies dehydration and states she drinks 4 bottles of water daily, using flavored packets to enhance the taste. A urine culture in December showed E. coli, and a follow-up culture in January confirmed the infection was cleared with Macrobid. She also reports right knee pain, exacerbated by climbing stairs, and notes that her hip pain may be related to her knee issues. 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 She has been using ear wipes to manage the crusting. She has a pacemaker and is under the care of Dr. Castrejon for memory issues. She recently had a brain scan in [place]. Her most recent A1c in November was 5.9. She has not visited the eye doctor recently but received a message to schedule an appointment. She reports occasional diplopia. She denies any chest pain, chest tightness or shortness of breath. Daughter helps prepare her medications and ensures adherence. Her medications were reviewed today and her list is now up to date. Medications Current Outpatient Medications Medication Sig donepezil (ARICEPT) 10 mg tablet Take 1 tablet by mouth daily after breakfast. sertraline (ZOLOFT) 50 mg tablet Take 1 tablet by mouth once daily. Please take half pill for a week and then increase to a full pill diclofenac (VOLTAREN ARTHRITIS PAIN) 1 % topical gel Apply 2 g to affected area four times daily. Takes as needed Magnesium Oxide 250 mg magnesium tab Take 1 tablet by mouth daily at bedtime. Cholecalciferol, Vitamin D3, 50 mcg (2,000 unit) cap Take 1 capsule by mouth once daily. cyanocobalamin (VITAMIN B-12) 1,000 mcg tab Take 1 tablet by mouth once daily. gabapentin (NEURONTIN) 300 mg capsule Take 2 capsules by mouth daily at bedtime AND 1 capsule every morning. Do all this for 180 days. oxyCODONE IR (ROXICODONE) 5 mg immediate release tablet Take by mouth every 8 hours as needed for pain. Managed by Dr. Mora, Pain Management manages albuterol HFA (PROAIR HFA) 90 mcg/actuation inhaler Inhale 2 Puffs as instructed every 4 hours as needed for wheezing/shortness of breath. 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 warfarin (COUMADIN) 5 mg tablet Take 1 tablet by mouth once daily. montelukast (SINGULAIR) 10 mg tablet Take 10 mg by mouth daily at bedtime. glimepiride (AMARYL) 2 mg tablet Take 1 tablet by mouth two times a day with meals. atorvastatin (LIPITOR) 10 mg tablet Take 1 tablet by mouth once daily. nitrofurantoin monohydrate and macrocrystal (MACROBID) 100 mg capsule Take 1 capsule by mouth every other day. triamcinolone acetonide (KENALOG) 0.1 % cream Apply 1 application to affected area three times a day as needed. For rash fluticasone-vilanter ol (BREO ELLIPTA) 100-25 mcg/dose inhaler Inhale 1 Inhalation as instructed once daily. (Patient not taking: Reported on 03/13/2025) TENS unit and electrodes cmpk 1 Each [...] - Controlled E11.9 Insulin: No No current facility-administere d medications for this visit. ALLERGIES Allergen Reactions Tizanidine Mental Status Change, Other: See Comments Made her feel like in another world. Very dry mouth. Stumbling/falling Amoxicillin Hives Aspirin Hives, shortness of breath Sulfa (Sulfonamide * Hives ACTIVE PROBLEM LIST Alzheimer Dementia ([facility]) - 02/07/2025 Obesity, Class I, Bmi 30-34.9 - 09/23/2023 Hemorrhagic Disorder Due to Extrinsic Circulating Anticoagulants ([facility]) - 09/23/2023 Ulcer of Right Lower Extremity With Fat Layer Exposed ([facility]) - 07/26/2023 Pulmonary Hypertension ([facility]) - 05/03/2023 Ramesh (Obstructive Sleep Apnea) - 01/21/2021 Pacemaker - 01/21/2021 Bilateral Carpal Isaías (more content not included)... Normal [facility] XR KNEE 4V AP/PA BOTH+LAT/ME R RTon 03-13-2025 XR KNEE 4V AP/PA BOTH+LAT/APRIL RT * * *Final Report* * * DATE OF EXAM: Mar 13 2025 8:59AM WOX 5203 - XR KNEE 4V AP/PA BOTH+LAT/APRIL RT / PROCEDURE REASON: multiple diagnoses * * * * Physician Interpretation * * * * EXAMINATION / TECHNIQUE: XR KNEE 4V AP/PA BOTH+LAT/APRIL RT HISTORY: Chronic worsening right knee pain, no known injury. Chronic pain of left knee Chronic pain of left knee Chronic pain of right knee Chronic pain of right knee COMPARISON: None. RESULT: No acute fracture or dislocation. Moderate to severe medial compartment osteoarthritis. Chondrocalcinosis. No significant joint effusion. IMPRESSION: Medial compartment predominant osteoarthritis. Parquet Floor Layer'S Helper: JULIOCESAR Transcribe Date/Time: Mar 15 2025 8:30P Dictated by : CONNIE YO MD This examination was interpreted and the report reviewed and electronically signed by: CONNIE YO MD on Mar 15 2025 8:31PM EST [id number] CN Normal [facility] 02-22-2025 CNPN Telephone (INTMWS) KEISHA RED ([id number]) 1945 F Date Time Provider Department 02/22/25 JOON LOPEZ INTMWS During your visit today, we recorded the following information about you: Hilaria Avina, RN 02/22/2025 11:22 AM Signed Pt reports she would like to get a medical alert [facility]- where she can push a button for help. A company she spoke to told her it would cost $44.97 a month. Pt asking if pcp can prescribe this and if there are places where she can get one for free? Reports someone she knows got one from [facility] for free. Please phone pt with reply. Whitney Hammond APRN.RADAR ENGINEERING TEACHER 02/22/2025 12:56 PM Signed This is what I was able to find for [facility], please let her know: Medical Alert equipment has been purchased by the [facility] as a community service and is available to you for a rental fee of $20 per month for a landline and $25 per month for a wireless line. There is no equipment for you to buy, no installation charge, and no maintenance charge for you to pay. For more information about the [facility] Medical Alert, contact [facility] at [phone]. Carolina Kuo LPN 02/22/2025 3:23 PM Signed PATIENT NOTIFIED OF SAME. Allergies As of Date: 02/22/2025 Noted Allergy Reaction TIZANIDINE 10/07/2023 1 - Mental Status Change 14 - Other: See Comments Comments: Made her feel like in another world. Very dry mouth. Stumbling/falling AMOXICILLIN 07/14/2005 4 - Hives ASPIRIN 01/30/2009 Comments: Hives, shortness of breath SULFA (SULFONAMIDE ANTIBIOTICS) 07/14/2005 4 - Hives Date Reviewed: 02/09/2025 Reviewed by: Patricia De La Paz LPN - Fully Assessed Reason for Visit: Medical alert necklace [Other] Prescriptions as of 02/22/2025 - donepezil (ARICEPT) 10 mg tablet Take 1 tablet by mouth daily after breakfast. - sertraline (ZOLOFT) 50 mg tablet Take 1 tablet by mouth once daily. Please take half pill for a week and then increase to a full pill - diclofenac (VOLTAREN ARTHRITIS PAIN) 1 % topical gel Apply 2 g to affected area four times daily. Takes as needed - Magnesium Oxide 250 mg magnesium tab Take 1 tablet by mouth daily at bedtime. - Cholecalciferol, Vitamin D3, 50 mcg (2,000 unit) cap Take 1 capsule by mouth once daily. - cyanocobalamin (VITAMIN B-12) 1,000 mcg tab Take 1 tablet by mouth once daily. - gabapentin (NEURONTIN) 300 mg capsule Take 2 capsules by mouth daily at bedtime AND 1 capsule every morning. Do all this for 180 days. - glimepiride (AMARYL) 2 mg tablet Take 1 tablet by mouth two times a day with meals. - oxyCODONE IR (ROXICODONE) 5 mg immediate release tablet Take by mouth every 8 hours as needed for pain. Managed by Dr. Mora, Pain Management manages - fluticasone-vilanter ol (BREO ELLIPTA) 100-25 mcg/dose inhaler Inhale 1 Inhalation as instructed once daily. - albuterol HFA (PROAIR HFA) 90 mcg/actuation inhaler Inhale 2 Puffs as instructed every 4 hours as needed for wheezing/shortness of breath. 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) - oxybutynin ER (DITROPAN XL) 10 mg 24 hr tablet Take 1 tablet by mouth every afternoon. - warfarin (COUMADIN) 5 mg tablet Take 1 tablet by mouth once daily. - montelukast (SINGULAIR) 10 mg tablet Take 10 mg by mouth daily at bedtime. - atorvastatin (LIPITOR) 10 mg tablet Take 1 tablet by mouth once daily. - TENS unit and electrodes cmpk 1 [...] 2 DM - Controlled E11.9 Insulin: No Problem List As Of Date 02/22/2025 Noted Resolved Congenital obstructive defects of renal [...] sleep apnea) [G47.33] 01/21/2021 Pacemaker [Z95.0] 01/21/2021 (more content not included)... Normal [facility] Telephone (INTMWS) NEDAKEISHA SANTOYO ([id number]) 1945 F Date Time Provider Department 02/22/25 JOON LOPEZ During your visit today, we recorded the following information about you: Roopa Edgar RN 02/22/2025 11:15 AM Signed Daughter (Dian) calls to ask about prescribing patient Macrobid on Thursday, Thursday ,Thursday for chronic UTI's. Recommended appt. Dian reports that patient was to [facility] and they recommended to reach out to PCP to request. Patient scheduled to see Whitney Hammond on 03/10/2025 and asking provider to review prior to previously scheduled appt. VLAD Reyna Rosa, APRN.RADAR ENGINEERING TEACHER 02/22/2025 12:57 PM Signed It would be ideal to discuss the options with her visit, we could consider use of the Macrobid as preventative. Carolina Kuo LPN 02/22/2025 3:29 PM Signed Dian NOTIFIED OF SAME and voiced her understanding. Allergies As of Date: 02/22/2025 Noted Allergy Reaction TIZANIDINE 10/07/2023 1 - Mental Status Change 14 - Other: See Comments Comments: Made her feel like in another world. Very dry mouth. Stumbling/falling AMOXICILLIN 07/14/2005 4 - Hives ASPIRIN 01/30/2009 Comments: Hives, shortness of breath SULFA (SULFONAMIDE ANTIBIOTICS) 07/14/2005 4 - Hives Date Reviewed: 02/09/2025 Reviewed by: Patricia De La Paz LPN - Fully Assessed Prescriptions as of 02/22/2025 - donepezil (ARICEPT) 10 mg tablet Take 1 tablet by mouth daily after breakfast. - sertraline (ZOLOFT) 50 mg tablet Take 1 tablet by mouth once daily. Please take half pill for a week and then increase to a full pill - diclofenac (VOLTAREN ARTHRITIS PAIN) 1 % topical gel Apply 2 g to affected area four times daily. Takes as needed - Magnesium Oxide 250 mg magnesium tab Take 1 tablet by mouth daily at bedtime. - Cholecalciferol, Vitamin D3, 50 mcg (2,000 unit) cap Take 1 capsule by mouth once daily. - cyanocobalamin (VITAMIN B-12) 1,000 mcg tab Take 1 tablet by mouth once daily. - gabapentin (NEURONTIN) 300 mg capsule Take 2 capsules by mouth daily at bedtime AND 1 capsule every morning. Do all this for 180 days. - glimepiride (AMARYL) 2 mg tablet Take 1 tablet by mouth two times a day with meals. - oxyCODONE IR (ROXICODONE) 5 mg immediate release tablet Take by mouth every 8 hours as needed for pain. Managed by Dr. Mora, Pain Management manages - fluticasone-vilanter ol (BREO ELLIPTA) 100-25 mcg/dose inhaler Inhale 1 Inhalation as instructed once daily. - albuterol HFA (PROAIR HFA) 90 mcg/actuation inhaler Inhale 2 Puffs as instructed every 4 hours as needed for wheezing/shortness of breath. 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) - oxybutynin ER (DITROPAN XL) 10 mg 24 hr tablet Take 1 tablet by mouth every afternoon. - warfarin (COUMADIN) 5 mg tablet Take 1 tablet by mouth once daily. - montelukast (SINGULAIR) 10 mg tablet Take 10 mg by mouth daily at bedtime. - atorvastatin (LIPITOR) 10 mg tablet Take 1 tablet by mouth once daily. - TENS unit and electrodes cmpk 1 [...] 2 DM - Controlled E11.9 Insulin: No Problem List As Of Date 02/22/2025 Noted Resolved Congenital obstructive defects of renal [...] 09/23/2023 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*09/23/2023 Alzheimer dementia (HCC) [G30.9, F02.80] 02/07/2025 Encounter S (more content not included)... Normal [facility] CNOVon 02-09-2025 CNOV Office Visit (GERIWR) KEISHA RED ([id number]) 1945 F Date Time Provider Department 02/09/25 3:00 PM XOCHITL CASTREJON During your visit today, we recorded the following information about you: Pulse Blood pressure Weight Height 61/minute 109/71 86.7 kg 1.727 m Xochitl Castrejon MD 02/09/2025 4:34 PM Signed Reason for Visit Follow up. HIREN Valdes is a 79-year-old female with a history of dementia, presenting for a follow-up visit. She is accompanied by her daughter, who is providing additional history. Keisha was started on donepezil during her last visit and has been taking it with breakfast, as managed by her granddaughter. She is tolerating the medication well but reports no significant improvement in symptoms. Her daughter notes that Keisha has been a little cranky, though she does not attribute this to the medication. Keisha denies weight loss and is maintaining her usual diet, which includes a preference for muffins. 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 However, she has experienced multiple falls recently. Last week, she fell in her house while cleaning her closet, resulting in a foot injury. EMS was called for a lift assist due to her niece's . She also reports a fall on a Thursday, which caused bruising on her arm and pain that has since subsided. She mentions difficulty moving her thumb and hearing clicking sounds in her bones. Keisha is currently taking multiple medications, including a cholesterol medication, donepezil, Amaryl, nitrofurantoin, oxybutynin, and Zoloft. She inquires about a medication she saw advertised on TV that purportedly helps with falling and other issues she is experiencing. Social History Tobacco Use Smoking status: Never Smokeless tobacco: Never Vaping Use Vaping status: Never Used Substance Use Topics Alcohol use: No Drug use: Never Past medical history, appointments, medications, allergies reviewed. Pertinent Lab/Diagnostic Studies are reviewed and discussed today Current Outpatient Medications: nitrofurantoin monohydrate and macrocrystal (MACROBID) 100 mg capsule sertraline (ZOLOFT) 50 mg tablet diclofenac (VOLTAREN ARTHRITIS PAIN) 1 % topical gel Magnesium Oxide 250 mg magnesium tab Cholecalciferol, Vitamin D3, 50 mcg (2,000 unit) cap cyanocobalamin (VITAMIN B-12) 1,000 mcg tab gabapentin (NEURONTIN) 300 mg capsule glimepiride (AMARYL) 2 mg tablet oxyCODONE IR (ROXICODONE) 5 mg immediate release tablet fluticasone-vilanter ol (BREO ELLIPTA) 100-25 mcg/dose inhaler albuterol HFA (PROAIR HFA) 90 mcg/actuation inhaler oxybutynin ER (DITROPAN XL) 10 mg 24 hr tablet warfarin (COUMADIN) 5 mg tablet montelukast (SINGULAIR) 10 mg tablet atorvastatin (LIPITOR) 10 mg tablet TENS unit and electrodes cmpk tens unit electrodes (TENS UNITS ELECTRODES) 2X2 pads triamcinolone acetonide (KENALOG) 0.1 % cream blood sugar diagnostic (BLOOD GLUCOSE TEST) test strip Lancets lancets donepezil (ARICEPT) 10 mg tablet Health Maintenance Spirometry Shingrix Vaccine(1 of 2) Pneumococcal Vaccine: 50+(2 of 2 - PCV) DTaP,Tdap,Td Vaccine(2 - Td or Tdap) RSV Vaccine(1 - 1-dose 75+ series) Diabetic Foot Exam BP Controlled (<130/80) Urine Albumin:Creatinine Ratio LDL Cholesterol Advance Directive Discussion Dilated Retinal Exam@ Review Of Systems Constitutional: (-) weight loss Musculoskeletal: (+) arm pain, (+) decreased thumb range of motion, (+) foot/toe pain Skin: (+) ecchymosis (arm) Psychiatric: (+) irritability Physical Exam BP 109/71 Pulse 61 Ht 172.7 cm (5' 8) Wt 86.7 kg (191 lb 3.2 oz) SpO2 98% BMI 29.07 kg/m? GENERAL: here with a Walker, alert and oriented SKIN: Unremarkable, no rash or skin lesions. HEAD: Normocephalic EYES: PERRLA, EOMI, conjunctiva clear NECK: Supple, no lymphadenopathy, normal thyroid, no carotid bruits. LUNGS: Clear to auscultation bilaterally, no wheezes/rhonchi/rale s. HEART: Regular rate and rhythm, no murmurs. No ectopy. EXTREMITIES: Normal, no deformities, no skin discoloration, no edema. NEURO: Awake, alert and oriented x3, cranial nerves II-XII grossly intact, normal gait, no involuntary motions Assessment and Plan 1. Dementia without behavioral disturbance (HCC) (F03.90) Currently on Aricept, with good tolerance but minimal perceived benefit. No significant weight loss or bradycardia observed. 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 Recent fall reported, resulting in minor injuries to the foot and arm. - Increased Aricept to 10 mg daily, to be taken after breakfast. - Reinforced importance of consistent medication adherence; family members to assist with medication administration. - Monitor for any adverse effects, including gastrointestinal symptoms and bradycardia. - Follow-up in 4 we (more content not included)... Normal [facility] Bacteria Ur Culton 5 Bacteria identified Cx Nom (U) ORGANISM ID: 1 >=100,000 CFU/ml Normal urogenital sera Normal [facility] Comment on above: Performed By: #### 6 30-4 ####[facility] LABCLIA [id number] [address] OF [facility] CNOVon 02-07-2025 CNOV Office Visit (UCWSTR) NEDA,RITA Tracie ([id number]) 1945 F Date Time Provider Department 02/07/25 2:00 PM CLARISSE JOYCE [facility] During your visit today, we recorded the following information about you: Temperature Pulse Respiration Blood pressure 97.4 degrees 92/minute 20/minute 130/69 Weight 86 kg Clarisse Joyce APRN.RADAR ENGINEERING TEACHER 02/07/2025 5:46 PM Signed [facility] Subjective Keisha Red is a 79 year old female. Patient presents with: Urinary Problem: Memory issues, balance off x 2 days 79 year old female with PMH Acute onset a few days ago Presents with granddaughter. Patient states that yesterday evening she noticed her urine was yellow. She states today it was darker and cloudy. Granddaughter states she has been a little more confused than normal recently and seemed off balance, which is her normal presentation. In fact, patient was here in December under same context At that time her urine culture was POSITIVE for e.coli Placed on Macrobid Denies recent catherization Denies abdominal pain Denies N/V/D The history is provided by the patient. No modern languages professor was used. UTI This is a new problem. The current episode started more than 2 days ago. There has been no fever. Pertinent negatives include no nausea and no vomiting. She has tried nothing for the symptoms. Her past medical history is significant for recurrent UTIs. PAST MEDICAL HISTORY Diagnosis Date Allergic rhinitis, [...] Right shoulder s/p fall with reduction at [facility] Type II or unspecified type diabetes [...] Amoxicillin, Aspirin, and Sulfa (Sulfonamide Antibiotics) MEDICATIONS sertraline (ZOLOFT) 50 mg tablet Take 1 tablet by mouth once daily. Please take half pill for a week and then increase to a full pill donepezil (ARICEPT) 5 mg tablet Take 1 tablet by mouth daily with breakfast. diclofenac (VOLTAREN ARTHRITIS PAIN) 1 % topical gel Apply 2 g to affected area four times daily. Takes as needed Magnesium Oxide 250 mg magnesium tab Take 1 tablet by mouth daily at bedtime. Cholecalciferol, Vitamin D3, 50 mcg (2,000 unit) cap Take 1 capsule by mouth once daily. cyanocobalamin (VITAMIN B-12) 1,000 mcg tab Take 1 tablet by mouth once daily. gabapentin (NEURONTIN) 300 mg capsule Take 2 capsules by mouth daily at bedtime AND 1 capsule every morning. Do all this for 180 days. glimepiride (AMARYL) 2 mg tablet Take 1 tablet by mouth two times a day with meals. oxyCODONE IR (ROXICODONE) 5 mg immediate release tablet Take by mouth every 8 hours as needed for pain. Managed by Dr. Mora, Pain Management manages fluticasone-vilanter ol (BREO ELLIPTA) 100-25 mcg/dose inhaler Inhale 1 Inhalation as instructed once daily. albuterol HFA (PROAIR HFA) 90 mcg/actuation inhaler Inhale 2 Puffs as instructed every 4 hours as needed for wheezing/shortness of breath. 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 warfarin (COUMADIN) 5 mg tablet Take 1 tablet by mouth once daily. montelukast (SINGULAIR) 10 mg tablet Take 10 mg by mouth daily at bedtime. atorvastatin (LIPITOR) 10 mg tablet Take 1 tablet by mouth once daily. TENS unit and electrodes cmpk 1 Each once daily. tens unit electrodes (TENS UNITS ELECTRODES) 2X2 pads Change pad every month as indicated triamcinolone acetonide (KENALOG) 0.1 % cream Apply 1 application to affected area three times daily as needed. For rash on extremities and leg blood sugar diagnostic (BLOOD GLUCOSE TEST) test strip Test blood sugar(s) 1 times daily. Dx: Type 2 DM - Controlled E11.9 Insulin: No Lancets lancets Test blood sugar(s) 1 times daily. Dx: Type 2 DM - Controlled E11.9 Insulin: No nitrofurantoin monohydrate and macrocrystal (MACROBID) 100 mg capsule Take 1 capsule by mouth two times a day for 5 days. FAMILY HISTORY Problem Relation Age of Onset Diabetes Mother Coronary Artery Disease Father (more content not included)... Normal [facility] UA DIP, URINE (POC)on 2024 BILIRUBIN UA (POCT) Negative Negative [facility] CLARITY UA (POCT) Cloudy [facility] COLOR UA (POCT) Dark yellow [facility] GLUCOSE UA (POCT) Negative Negative mg/dL [facility] Hemoglobin Ql (U) Small Abnormal Negative [facility] Interpretation and review of laboratory results Abnormal [facility] KETONE UA (POCT) Negative Negative mg/dL [facility] LEUKOCYTES UA (POCT) Small Abnormal [facility] (PO[facility]) Negative Negative [facility] PH UA (POCT) 6 4.5 - 8.0 [facility] Protein Ql (U) 30 mg/dL Abnormal Negative [facility] SPECIFIC GRAVITY UA (POCT) 1.02 1.005 - 1.030 [facility] UROBILINOGEN UA (POCT) 0.2 Carlita l E.U./dL [facility] Location:[address], [place], [place], [id number] [place] [address] POINT OF CARE [facility] International normalized rat io (INR) calculationOrdered By: Lisandra Cao on 01-12-2025 INR Coag (Bld) [Relative time] 2.0 {INR} [facility] Prothrombin Time w/INRon INR Coag (PPP) [Relative time] 2.0 {INR} Normal [facility] Comment on above: Performed By: #### L 300.3900 ####[facility] [address] [place], [place], [address] PT Coag (PPP) [Time] 23.5 s High 11.7-14.9 [facility] Comment on above: Performed By: #### L 300.3900 ####[facility] [address] [place], [place], [address] Prothrombin timeOrdered By: Lisandra Cao on 01-12-2025 PT Coag (PPP) [Time] 23.5 s High 11.7-14.9 [facility] Bacteria Ur Culton Bacteria identified Cx Nom (U) ORGANISM ID: 1 >=100,000 CFU/ml Escherichia coli ORGANISM ID: 1 (ESCHERICHIA COLI) ANTIBIOTIC INTERPRETATION CORRINA STATUS REFERENCE RANGE Ampicillin S <=2 F Susceptible <=8 , Intermediate >8 , Resistant >16 Cefazolin S <=4 F Susceptible 0-16 , Intermediate <0 or >16 , Resistant >16 For uncomplicated urinary tract infections, cefazolin results can be used to predict susceptibility or resistance to cephalexin. Ceftriaxone S <=1 F Susceptible <=1 , Intermediate >1 , Resistant >=4 Cefepime S <=1 F Susceptible <=2 , Susceptible-Dose Dependent >2 , Resistant >=16 Ertapenem S <=0.5 F Susceptible <=0.5 , Intermediate >.5 , Resistant >1 Meropenem S <=0.25 F Susceptible <=1 , Intermediate >1 , Resistant >2 Ampicillin/Sulbact S <=2 F Susceptible <=8 , Intermediate >8 , Resistant >16 Piperacillin/Tazobac S <=4 F Susceptible <16 , Susceptible-Dose Dependent >=16 , Resistant >=32 Gentamicin S <=1 F Susceptible <=2 , Intermediate >2 , Resistant >=8 Tobramycin S <=1 F Susceptible <4 , Intermediate >=4 , Resistant >=8 Trimeth sulfameth S <=20 F Susceptible <=40 , Resistant >40 Ciprofloxacin S <=0.25 F Susceptible <0.5 , Intermediate >=.5 , Resistant >=1 Nitrofurantoin S <=16 F Susceptible <=32 , Intermediate >32 , Resistant >64 Abnormal [facility] Comment on above: Performed By: #### 6 30-4 ####[facility] LABMARIAM [id number] [place] [id number] [place] CNOVon 01-05-2025 CNOV Office Visit (UCWSTR) KEISHA RED ([id number]) 1945 F Date Time Provider Department 01/05/25 10:15 AM ANTONINO CRANDALL [facility] During your visit today, we recorded the following information about you: Temperature Pulse Respiration Blood pressure 97.4 degrees 83/minute 20/minute 135/86 Weight 86 kg Antonino Crandall, GREGORY 01/05/2025 10:39 AM Signed [facility] Subjective Keisha Red is a 79 year old female. Patient presents with: Urinary Problem: Having balance issues, increased confusion x 4 days HPI 79-year-old female presents for concern for UTI. Presents with granddaughter. Patient states that yesterday evening she noticed her urine was white. She states today it was darker and cloudy. Granddaughter states she has been a little more confused than normal recently and seemed off balance for the past few weeks. She was seen in the ER yesterday evening after she had a fall earlier this week for her shoulder pain. Patient has had no falls since. She is alert and oriented x 3 currently. She denies any fevers, abdominal pain, vomiting or back pain. No other complaint. PAST MEDICAL HISTORY Diagnosis Date Allergic rhinitis, [...] Right shoulder s/p fall with reduction at [facility] Type II or unspecified type diabetes [...] Amoxicillin, Aspirin, and Sulfa (Sulfonamide Antibiotics) MEDICATIONS sertraline (ZOLOFT) 50 mg tablet Take 1 tablet by mouth once daily. Please take half pill for a week and then increase to a full pill donepezil (ARICEPT) 5 mg tablet Take 1 tablet by mouth daily with breakfast. diclofenac (VOLTAREN ARTHRITIS PAIN) 1 % topical gel Apply 2 g to affected area four times daily. Takes as needed Magnesium Oxide 250 mg magnesium tab Take 1 tablet by mouth daily at bedtime. Cholecalciferol, Vitamin D3, 50 mcg (2,000 unit) cap Take 1 capsule by mouth once daily. cyanocobalamin (VITAMIN B-12) 1,000 mcg tab Take 1 tablet by mouth once daily. gabapentin (NEURONTIN) 300 mg capsule Take 2 capsules by mouth daily at bedtime AND 1 capsule every morning. Do all this for 180 days. glimepiride (AMARYL) 2 mg tablet Take 1 tablet by mouth two times a day with meals. oxyCODONE IR (ROXICODONE) 5 mg immediate release tablet Take by mouth every 8 hours as needed for pain. Managed by Dr. Mora, Pain Management manages albuterol HFA (PROAIR HFA) 90 mcg/actuation inhaler Inhale 2 Puffs as instructed every 4 hours as needed for wheezing/shortness of breath. 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 warfarin (COUMADIN) 5 mg tablet Take 1 tablet by mouth once daily. montelukast (SINGULAIR) 10 mg tablet Take 10 mg by mouth daily at bedtime. atorvastatin (LIPITOR) 10 mg tablet Take 1 tablet by mouth once daily. TENS unit and electrodes cmpk 1 Each once daily. tens unit electrodes (TENS UNITS ELECTRODES) 2X2 pads Change pad every month as indicated triamcinolone acetonide (KENALOG) 0.1 % cream Apply 1 application to affected area three times daily as needed. For rash on extremities and leg blood sugar diagnostic (BLOOD GLUCOSE TEST) test strip Test blood sugar(s) 1 times daily. Dx: Type 2 DM - Controlled E11.9 Insulin: No Lancets lancets Test blood sugar(s) 1 times daily. Dx: Type 2 DM - Controlled E11.9 Insulin: No fluticasone-vilanter ol (BREO ELLIPTA) 100-25 mcg/dose inhaler Inhale 1 Inhalation as instructed once daily. (Patient not taking: Reported on 11/10/2024) FAMILY HISTORY Problem Relation Age of Onset Diabetes Mother Coronary Artery Disease Father Cancer Sister lung Dementia Brother Migraines Daughter Migraines Son other (nephrolithiasis) Son Hypertension Son Social History Tobacco Use Smoking status: Never Smokeless tobacco: Never Vaping Use Vaping status: Never Used Substance Use Topics Alcohol use: No Drug use: Never Review of Systems Constitutional: Negative f (more content not included)... Normal [facility] UA DIP, URINE (POC)on 2024 BILIRUBIN UA (POCT) Negative Negative [facility] CLARITY UA (POCT) Cloudy [facility] COLOR UA (POCT) Hallie [facility] GLUCOSE UA (POCT) Negative Negative mg/dL [facility] Hemoglobin Ql (U) Trace-intact Abnormal Negative [facility] Interpretation and review of laboratory results Abnormal [facility] KETONE UA (POCT) Negative Negative mg/dL [facility] LEUKOCYTES UA (POCT) Moderate Abnormal Negative [facility] NITRITE UA (POCT) Positive Abnormal Negative [facility] PH UA (POCT) 5.5 4.5 - 8.0 [facility] Protein Ql (U) 30 mg/dL Abnormal Negative [facility] SPECIFIC GRAVITY UA (POCT) 1.02 1.005 - 1.030 [facility] UROBILINOGEN UA (POCT) 0.2 Carlita l E.U./dL [facility] Location:[address], [place], [place], [id number] [place] [address] POINT OF CARE [facility] Emergency Department Summary on 01-04-2025 Emergency Department Summary Normal [facility] Humerus min 2 Viewson 2024 Humerus min 2 Views Normal [facility] Shoulder min 2 Viewson 01-04 Shoulder min 2 Views Normal [facility] Pulmonary Visit Reporton Pulmonary Visit Report Normal [facility] 25(OH)D3 SerPl-mCncon 2024 25-hydroxyvitamin D3 [Mass/Vol] 38.0 ng/mL Normal 31.0-80.0 [facility] Comment on above: Order Comment: Speci men Type: BLOOD SPECIMENOrdering Facility: [facility] Address: [address] [place] [address] Result Comment: Clas sification of 25 [place] Vitamin D status: Deficiency/Insufficiency: < or = 30 ng/ml. Sufficiency/Optimal Levels: 31-80 ng/mL Toxicity: > 100 ng/mL. Test performed by chemiluminescent immunoassay. Performed By: #### 1 989-3 ####[facility] LABIA [id number] [place] [address] [place] CBC W Auto Differential pane l (Bld)on 12-07-2024 Basophils (Bld) [#/Vol] 0.06 10*3/uL Normal <0.11 [facility] Comment on above: Order Comment: Speci men Type: BLOOD SPECIMENOrdering Facility: [facility] Address: [address] [place] [address] Performed By: #### 5 7021-8 ####[facility] LABIA [id number] [place] [address] [place] Basophils/100 WBC (Bld) 1.0 % Normal [facility] Comment on above: Order Comment: Speci men Type: BLOOD SPECIMENOrdering Facility: [facility] Address: [address] [place] [address] Performed By: #### 5 7021-8 ####[facility] LABIA [id number] [place] [address] [place] Differential cell count method Nom (Bld) Auto Normal [facility] Comment on above: Order Comment: Speci men Type: BLOOD SPECIMENOrdering Facility: [facility] Address: [address] [place] [address] Performed By: #### 5 7021-8 ####[facility] LABIA [id number] [place] [address] [place] Eosinophils (Bld) [#/Vol] 0.35 10*3/uL Normal <0.46 [facility] Comment on above: Order Comment: Speci men Type: BLOOD SPECIMENOrdering Facility: [facility] Address: [address] [place] [address] Performed By: #### 5 7021-8 ####[facility] LABCLIA [id number] [place] [address] [place] Eosinophils/100 WBC (Bld) 5.6 % Normal [facility] Comment on above: Order Comment: Speci men Type: BLOOD SPECIMENOrdering Facility: [facility] Address: [address] [place] [address] Performed By: #### 5 7021-8 ####[facility] LABIA [id number] [place] [address] [place] Erythrocyte distribution width (RBC) [Ratio] 12.3 % Normal 11.5-15.0 [facility] Comment on above: Order Comment: Speci men Type: BLOOD SPECIMENOrdering Facility: [facility] Address: [address] [place] [address] Performed By: #### 5 7021-8 ####[facility] LABIA [id number] [place] [address] [place] Hematocrit (Bld) [Volume fraction] 43.2 % Normal 36.0-46.0 [facility] Comment on above: Order Comment: Speci men Type: BLOOD SPECIMENOrdering Facility: [facility] Address: [address] [place] [address] Performed By: #### 5 7021-8 ####[facility] LABIA [id number] [place] [address] [place] Hemoglobin (Bld) [Mass/Vol] 13.7 g/dL Normal 11.5-15.5 [facility] Comment on above: Order Comment: Speci men Type: BLOOD SPECIMENOrdering Facility: [facility] Address: [address] [place] [address] Performed By: #### 5 7021-8 ####[facility] LABCLIA [id number] [place] [address] [place] Immature granulocytes (Bld) [#/Vol] 10*3/uL Normal <0.10 [facility] Comment on above: Order Comment: Speci men Type: BLOOD SPECIMENOrdering Facility: [facility] Address: [address] [place] [address] Performed By: #### 5 7021-8 ####[facility] LABCLIA [id number] [place] [address] [place] Immature granulocytes/100 WBC (Bld) 0.3 % Normal [facility] Comment on above: Order Comment: Speci men Type: BLOOD SPECIMENOrdering Facility: [facility] Address: [address] [place] [address] Performed By: #### 5 7021-8 ####[facility] LABCLIA [id number] [place] [address] [place] Lymphocytes (Bld) [#/Vol] 1.50 10*3/uL Normal 1.00-4.00 [facility] Comment on above: Order Comment: Speci men Type: BLOOD SPECIMENOrdering Facility: [facility] Address: [address] [place] [address] Performed By: #### 5 7021-8 ####[facility] LABCLIA [id number] [place] [address] [place] Lymphocytes/100 WBC (Bld) 23.9 % Normal [facility] Comment on above: Order Comment: Speci men Type: BLOOD SPECIMENOrdering Facility: [facility] Address: [address] [place] [address] Performed By: #### 5 7021-8 ####[facility] LABCLIA [id number] [place] [address] [place] MCH (RBC) [Entitic mass] 31.6 pg Normal 26.0-34.0 [facility] Comment on above: Order Comment: Speci men Type: BLOOD SPECIMENOrdering Facility: [facility] Address: [address] [place] [address] Performed By: #### 5 7021-8 ####[facility] LABCLIA [id number] [place] [address] [place] MCHC (RBC) [Mass/Vol] 31.7 g/dL Normal 30.5-36.0 [facility] Comment on above: Order Comment: Speci men Type: BLOOD SPECIMENOrdering Facility: [facility] Address: [address] [place] [address] Performed By: #### 5 7021-8 ####[facility] LABCLIA [id number] [place] [address] [place] MCV (RBC) [Entitic vol] 99.8 fL Normal 80.0-100.0 [facility] Comment on above: Order Comment: Speci men Type: BLOOD SPECIMENOrdering Facility: [facility] Address: [address] [place] [address] Performed By: #### 5 7021-8 ####[facility] LABIA [id number] [place] [address] [place] Monocytes (Bld) [#/Vol] 0.43 10*3/uL Normal <0.87 [facility] Comment on above: Order Comment: Speci men Type: BLOOD SPECIMENOrdering Facility: [facility] Address: [address] [place] [address] Performed By: #### 5 7021-8 ####[facility] LABCLIA [id number] [place] [address] [place] Monocytes/100 WBC (Bld) 6.8 % Normal [facility] Comment on above: Order Comment: Speci men Type: BLOOD SPECIMENOrdering Facility: [facility] Address: [address] [place] [address] Performed By: #### 5 7021-8 ####[facility] LABCLIA [id number] [place] [address] [place] Neutrophils (Bld) [#/Vol] 3.92 10*3/uL Normal 1.45-7.50 [facility] Comment on above: Order Comment: Speci men Type: BLOOD SPECIMENOrdering Facility: [facility] Address: [address] [place] [address] Performed By: #### 5 7021-8 ####[facility] LABCLIA [id number] [place] [address] [place] Neutrophils/100 WBC (Bld) 62.4 % Normal [facility] Comment on above: Order Comment: Speci men Type: BLOOD SPECIMENOrdering Facility: [facility] Address: [address] [place] [address] Performed By: #### 5 7021-8 ####[facility] LABCLIA [id number] [place] [address] [place] Nucleated RBC (Bld) [#/Vol] 10*3/uL Normal <0.01 [facility] Comment on above: Order Comment: Speci men Type: BLOOD SPECIMENOrdering Facility: [facility] Address: [address] [place] [address] Performed By: #### 5 7021-8 ####[facility] LABCLIA [id number] [place] [address] [place] Nucleated RBC/100 WBC (Bld) [Ratio] 0.0 /100 WBC Normal [facility] Comment on above: Order Comment: Speci men Type: BLOOD SPECIMENOrdering Facility: [facility] Address: [address] [place] [address] Performed By: #### 5 7021-8 ####[facility] LABCLIA [id number] [place] [address] [place] Platelet mean volume (Bld) [Entitic vol] 10.5 fL Normal 9.0-12.7 [facility] Comment on above: Order Comment: Speci men Type: BLOOD SPECIMENOrdering Facility: [facility] Address: [address] [place] [address] Performed By: #### 5 7021-8 ####[facility] LABIA [id number] [place] [address] [place] Platelets (Bld) [#/Vol] 143 10*3/uL Low 150-400 [facility] Comment on above: Order Comment: Speci men Type: BLOOD SPECIMENOrdering Facility: [facility] Address: [address] [place] [address] Performed By: #### 5 7021-8 ####[facility] LABIA [id number] [place] [address] [place] RBC (Bld) [#/Vol] 4.33 10*6/uL Normal 3.90-5.20 [facility] Comment on above: Order Comment: Speci men Type: BLOOD SPECIMENOrdering Facility: [facility] Address: [address] [place] [address] Performed By: #### 5 7021-8 ####[facility] LABIA [id number] [place] [address] [place] WBC (Bld) [#/Vol] 6.28 10*3/uL Normal 3.70-11.00 [facility] Comment on above: Order Comment: Speci men Type: BLOOD SPECIMENOrdering Facility: [facility] Address: [address] [place] [address] Performed By: #### 5 7021-8 ####[facility] LABIA [id number] [place] [address] [place] CNOVon 12-07-2024 CNOV Office Visit (INTMWS) KEISHA RED ([id number]) 1945 F Date Time Provider Department 12/07/24 10:00 AM JOON LOPEZ INTMWS During your visit today, we recorded the following information about you: Temperature Pulse Respiration Blood pressure 97.6 degrees 89/minute 16/minute 112/62 Weight Height 81.4 kg 1.676 m Joon Lopez MD 12/07/2024 11:29 AM Signed This note was created using Surfkitchenriter. Subjective Keisha Red is a 79 year old female. Patient presents with: F/U Diabetes 3 Month: having sleep issues- problems going to sleep SUBJECTIVE: Keisha Red is a 79 year old year old lady here today for 3 month follow up appointment for review of medical conditions. Keisha Red is a 79-year-old female, with a history of insomnia, presenting for a 3-month follow-up visit. Keisha reports difficulty sleeping over the past month, stating, I can't sleep. She has been going to bed around 1830 but wakes up by 2300 and is unable to return to sleep. She has recently tried going to bed later, around 7892-5488, and notes some improvement in sleep quality. Last night, she went to bed at 2130 and reports, I slept last night. She denies having clocks in her bedroom but mentions that lights coming through the windows sometimes keep her awake. She does not take naps during the day. She is currently taking magnesium, which is administered by her daughter. Keisha also mentions weight fluctuations, noting a recent increase to 179 lbs from 167 lbs at her last doctor's visit. She attributes this to increased popcorn consumption. She denies any leg swelling or pruritus. PAST MEDICAL HISTORY Diagnosis Date Allergic rhinitis, [...] Right shoulder s/p fall with reduction at [facility] Type II or unspecified type diabetes mellitus without mention of complication, not stated as uncontrolled Unspecified asthma(493.90) Unspecified essential hypertension Current Outpatient Medications Medication Sig diclofenac (VOLTAREN ARTHRITIS PAIN) 1 % topical gel Apply 2 g to affected area four times daily. Takes as needed Magnesium Oxide 250 mg magnesium tab Take 1 tablet by mouth daily at bedtime. Cholecalciferol, Vitamin D3, 50 mcg (2,000 unit) cap Take 1 capsule by mouth once daily. cyanocobalamin (VITAMIN B-12) 1,000 mcg tab Take 1 tablet by mouth once daily. gabapentin (NEURONTIN) 300 mg capsule Take 2 capsules by mouth daily at bedtime AND 1 capsule every morning. Do all this for 180 days. glimepiride (AMARYL) 2 mg tablet Take 1 tablet by mouth two times a day with meals. donepezil (ARICEPT) 5 mg tablet Take 1 tablet by mouth daily with breakfast. oxyCODONE IR (ROXICODONE) 5 mg immediate release tablet Take by mouth every 8 hours as needed for pain. Managed by Dr. Mora, Pain Management manages sertraline (ZOLOFT) 50 mg tablet Take 1 tablet by mouth once daily. Please take half pill for a week and then increase to a full pill fluticasone-vilanter ol (BREO ELLIPTA) 100-25 mcg/dose inhaler Inhale 1 Inhalation as instructed once daily. (Patient not taking: Reported on 11/10/2024) albuterol HFA (PROAIR HFA) 90 mcg/actuation inhaler Inhale 2 Puffs as instructed every 4 hours as needed for wheezing/shortness of breath. 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 warfarin (COUMADIN) 5 mg tablet Take 1 tablet by mouth once daily. montelukast (SINGULAIR) 10 mg tablet Take 10 mg by mouth daily at bedtime. atorvastatin (LIPITOR) 10 mg tablet Take 1 tablet by mouth once daily. TENS unit and electrodes cmpk 1 Each once daily. tens unit electrodes (TENS UNITS ELECTRODES) 2X2 pads Change pad every month as indicated triamcinolone acetonide (KENALOG) 0.1 % cream Apply 1 application to affected area three times daily as needed. For rash on extremities and leg blood sugar diagnostic (BLOOD GLUCOSE TEST) test strip Test blood sugar(s) 1 times daily. Dx: Type 2 DM - Controlled E11.9 Insulin: No Lancets lancets Test blood sugar(s) 1 times daily. Dx: Type 2 DM - Controlled E11.9 Insulin: No No current facility-administere d medications for this visit. Review of Systems Objective BP 112/62 (BP Site: Right Arm, BP Position: Sitting, BP Cuff Size: Large Adult) Pulse 89 Temp 36.4 ?C (97.6 ?F) (Temporal) Resp 16 Ht 167.6 cm (5' 6) Wt 81.4 kg (179 lb 7.3 oz) SpO2 96% BMI 28.96 kg/m? Physical Exam Constitutional: Appearance: Normal a (more content not included)... Normal [facility] Comprehensive metabolic 2000 panelon 12-07-2024 Albumin [Mass/Vol] 4.0 g/dL Normal 3.9-4.9 [facility] Comment on above: Order Comment: Speci men Type: BLOOD SPECIMENOrdering Facility: [facility] Address: [address] [place] [address] Performed By: #### 2 4323-8 ####[facility] LABIA [id number] [place] [address] [place] ALP [Catalytic activity/Vol] 98 U/L Normal 34-123 [facility] Comment on above: Order Comment: Speci men Type: BLOOD SPECIMENOrdering Facility: [facility] Address: [address] [place] [address] Performed By: #### 2 4323-8 ####[facility] LABIA [id number] [place] [address] [place] ALT [Catalytic activity/Vol] 12 U/L Normal 7-38 [facility] Comment on above: Order Comment: Speci men Type: BLOOD SPECIMENOrdering Facility: [facility] Address: [address] [place] [id number] Performed By: #### 2 4323-8 ####[facility] LABCLIA [id number] [place] [id number] [place] Anion gap [Moles/Vol] 9 mmol/L Normal 8-15 [facility] Comment on above: Order Comment: Speci men Type: BLOOD SPECIMENOrdering Facility: [facility] Address: [address] [place] [address] Performed By: #### 2 4323-8 ####[facility] LABCLIA [id number] [place] [address] [place] AST [Catalytic activity/Vol] 19 U/L Normal 13-35 [facility] Comment on above: Order Comment: Speci men Type: BLOOD SPECIMENOrdering Facility: [facility] Address: [address] [place] [address] Performed By: #### 2 4323-8 ####[facility] LABCLIA [id number] [place] [address] [place] Bilirubin [Mass/Vol] 0.6 mg/dL Normal 0.2-1.3 [facility] Comment on above: Order Comment: Speci men Type: BLOOD SPECIMENOrdering Facility: [facility] Address: [address] [place], [place] [id number] Performed By: #### 2 4323-8 ####[facility] LABCLIA [id number] [place] [id number] [place] Calcium [Mass/Vol] 9.8 mg/dL Normal 8.5-10.2 [facility] Comment on above: Order Comment: Speci men Type: BLOOD SPECIMENOrdering Facility: [facility] Address: [address] [id number] Performed By: #### 2 4323-8 ####[facility] LABCLIA [id number] [place] [id number] [place] Chloride [Moles/Vol] 104 mmol/L Normal 98-107 [facility] Comment on above: Order Comment: Speci men Type: BLOOD SPECIMENOrdering Facility: [facility] Address: [address] [place] [address] Performed By: #### 2 4323-8 ####[facility] LABCLIA [id number] [place] [address] [place] CO2 [Moles/Vol] 27 mmol/L Normal 22-30 [facility] Comment on above: Order Comment: Speci men Type: BLOOD SPECIMENOrdering Facility: [facility] Address: [address] [place] [address] Performed By: #### 2 4323-8 ####[facility] LABCLIA [id number] [address] [place] Creatinine [Mass/Vol] 0.83 mg/dL Normal 0.58-0.96 [facility] Comment on above: Order Comment: Speci men Type: BLOOD SPECIMENOrdering Facility: [facility] Address: [address] [place] [address] Performed By: #### 2 4323-8 ####[facility] LABCLIA [id number] [address] [place] Creatinine and Glomerular filtration rate.predicted panel (S/P/Bld) 73 mL/min/1.73m??? Normal >=60 [facility] Comment on above: Order Comment: Speci men Type: BLOOD SPECIMENOrdering Facility: [facility] Address: [address] [place] [address] Result Comment: Monique mated Glomerular Filtration Rate [...] reflect actual GFR. Performed By: #### 2 4323-8 ####[facility] LABCLIA [id number] [address] [address] [place] Glucose [Mass/Vol] 105 mg/dL High 74-99 [facility] Comment on above: Order Comment: Speci men Type: BLOOD SPECIMENOrdering Facility: [facility] Address: [address] [place] [address] Result Comment: The [place] Diabetes Association (ADA) provides guidance for cutoff [...] Standards of Medical Care in Diabetes 2016, [place] Diabetes Association. Diabetes Care. 2016.39(Suppl 1). Performed By: #### 2 4323-8 ####[facility] LABCLIA [id number] [place] [address] [place] Potassium [Moles/Vol] 5.2 mmol/L High 3.7-5.1 [facility] Comment on above: Order Comment: Speci men Type: BLOOD SPECIMENOrdering Facility: [facility] Address: [address] [place] [address] Performed By: #### 2 4323-8 ####[facility] LABCLIA [id number] [place] [id number] [place] Protein [Mass/Vol] 7.3 g/dL Normal 6.3-8.0 [facility] Comment on above: Order Comment: Speci men Type: BLOOD SPECIMENOrdering Facility: [facility] Address: [address] [place], [place] [id number] Performed By: #### 2 4323-8 ####[facility] LABCLIA [id number] [place] [address] [place] Sodium [Moles/Vol] 140 mmol/L Normal 136-144 [facility] Comment on above: Order Comment: Speci men Type: BLOOD SPECIMENOrdering Facility: [facility] Address: [address] [place] [address] Performed By: #### 2 4323-8 ####[facility] LABCLIA [id number] [place] [address] [place] Urea nitrogen [Mass/Vol] 16 mg/dL Normal 7-21 [facility] Comment on above: Order Comment: Speci men Type: BLOOD SPECIMENOrdering Facility: [facility] Address: [address] [place] [address] Performed By: #### 2 4323-8 ####[facility] LABIA [id number] [place] [address] [place] HbA1c (Bld)on 12-07-2024 Average glucose Estimated from glycated hemoglobin (Bld) [Mass/Vol] 123 mg/dL Normal [facility] Comment on above: Order Comment: Speci men Type: BLOOD SPECIMENOrdering Facility: [facility] Address: [address] [place] [address] Result Comment: eAG: (Estimated average glucose) is a calculated value from HgbA1c and is tax compliance representative of the average blood glucose level in the last 2-3 month period. Performed By: #### 5 5454-3 ####[facility] LABCLIA [id number] [place] [address] [place] HbA1c (Bld) [Mass fraction] 5.9 % High 4.3-5.6 [facility] Comment on above: Order Comment: Jaydai men Type: BLOOD SPECIMENOrdering Facility: [facility] Address: [address] [place] [address] Result Comment: [place] Diabetes Association guidelines indicate that patients with HgbA1c in the range 5.7-6.4% are at increased risk for development of diabetes, and intervention by lifestyle modification may be beneficial. HgbA1c greater or equal to 6.5% is considered diagnostic of diabetes. Performed By: #### 5 5454-3 ####[facility] LABMARIAM [id number] [place] [id number] [place] CNOVon 11-10-2024 CNOV Office Visit (GERIWR) NEDAKEISHA Marie ([id number]) 1945 F Date Time Provider Department 11/10/24 11:30 AM XOCHITL CASTREJON During your visit today, we recorded the following information about you: Pulse Blood pressure Weight 68/minute 106/76 80.6 kg Xochitl Castrejon MD 11/10/2024 1:13 PM Signed [facility] Initial Consult Keisha Neda is a 79 year old year old [...] has back pain from degenerative disc disease. She is here to discuss her memory concerns. Last visit when I first saw the patient in August 18 below what her history Here to discuss her memory concerns that [...] management but very few and far between. She is here to see me in Nov 19 for 3-month follow-up. She did get her MRI of the brain done which showed hippocampal volumes in the 1 percentile along with small chronic lacunar infarcts in the cerebellum and mild white matter disease. It also showed significant degenerative changes at C1-C2 and moderate spinal canal stenosis. She still continues to have sleep apnea but is unable to use the sleep machine. There have been no changes in her ADL and IADL performances. Any Family History of dementia? Yes, older brother who is 5 years older to her is currently having dementia Are you or your spouse a ? Yes Long-term Memory: Difficulty remembering distant events from the past like childhood, previous employment, wedding: NO Behavioral/personali ty: Withdrawn/Depressed: YES Crying spells: YES Anxious: NO [...] but does not want to use it B-ADLs: (I=independent,A=ass istance,D=dependent) ?Bathing: I, Dressing: I, Toileting: I, Transferring:I, Continence: I, Feeding: I, (Gibbons Index): I-ADLs: Ability to use phone: I, sometimes having a hard time figuring out which calls to take Shopping: I, Cooking: A, she has messed up some recipes has cut down a lot, used to do the big turkey at thanksgiving where the turkey was spoiled and she [...] the judgement to fully understand her finances. Reviewed past medical and surgical histories along with social history. Home Meds: Prior to Admission medications : Medication oxyCODONE IR (ROXICODONE) 5 mg immediate release tablet, Sig Take by mouth every 8 hours as needed for pain. Managed by Dr. Mora, Pain Management manages, Start Date , End Date , Taking? Yes, Authorizing Provider Provider, [facility] Medication albuterol HFA (PROAIR HFA) 90 mcg/actuation inhaler, Sig Inhale 2 Puffs as instructed every 4 hours as needed for wheezing/shortness of breath. (pulmonologis (more content not included)... Normal [facility] International normalized rat io (INR) calculationOrdered By: Lisandra Cao on 11-01-2024 INR Coag (Bld) [Relative time] 1.5 {INR} [facility] Prothrombin Time w/INRon INR Coag (PPP) [Relative time] 1.5 {INR} Normal [facility] Comment on above: Performed By: #### L 300.3900 ####[facility] [id number] [place], [place], [id number] PT Coag (PPP) [Time] 18.8 s High 11.7-14.9 [facility] Comment on above: Performed By: #### L 300.3900 ####[facility] [id number] [place], [place], [id number] Prothrombin timeOrdered By: Lisandra Cao on 11-01-2024 PT Coag (PPP) [Time] 18.8 s High 11.7-14.9 [facility] 09-30-2024 [facility] Telephone (INTMWS) NEDAKEISHA SANTOYO ([id number]) 1945 F Date Time Provider Department 09/30/24 XOCHITL CASTREJON INTMWS During your visit today, we recorded the following information about you: Patricia De La Paz LPN 09/30/2024 9:21 AM Signed ----- Message from Xochitl Castrejon MD sent at 09/29/2024 5:22 PM EST ----- Likely has Alzheimer's dementia, would benefit from being on Aricept medication. Will discuss this and your coming visit in October. Regards, Patricia Gaston MD, LPN 09/30/2024 9:42 AM Signed Called and spoke to Keisha's daughter Dian, updated, will discuss medication. Patricia De La Paz LPN September 30, 2024 9:42 AM Allergies As of Date: 09/30/2024 Noted Allergy Reaction TIZANIDINE 10/07/2023 1 - Mental Status Change 14 - Other: See Comments Comments: Made her feel like in another world. Very dry mouth. Stumbling/falling AMOXICILLIN 07/14/2005 4 - Hives ASPIRIN 01/30/2009 Comments: Hives, shortness of breath SULFA (SULFONAMIDE ANTIBIOTICS) 07/14/2005 4 - Hives Date Reviewed: 09/09/2024 Reviewed by: Whitney Hammond APRN.RADAR ENGINEERING TEACHER - Fully Assessed Prescriptions as of 09/30/2024 - oxyCODONE IR (ROXICODONE) 5 mg immediate [...] by mouth two times a day. - fluticasone-vilanter ol (BREO ELLIPTA) 100-25 mcg/dose inhaler Inhale 1 Inhalation as instructed once daily. - albuterol HFA (PROAIR HFA) 90 mcg/actuation inhaler Inhale 2 Puffs as instructed every 4 hours as needed for wheezing/shortness of breath. 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) - oxybutynin ER (DITROPAN XL) 10 mg [...] 2 DM - Controlled E11.9 Insulin: No Problem List As Of Date 09/30/2024 Noted Resolved Congenital obstructive defects of renal [...] due to extrinsic circulati*09/23/2023 Encounter Status:Closed by PATRICIA DE LA PAZ on 09/30/24 Normal [facility] MRI 3D POST PROCESSINGon MRI 3D POST PROCESSING * * *Final Report * * * DATE OF EXAM: Sep 28 2024 10:56AM [facility] 0280 - MRI 3D POST PROCESSING / PROCEDURE REASON: Cognitive impairment, mild, so stated * * * * Physician Interpretation * * * * EXAMINATION: MRI BRAIN WO IVCON, MRI 3D POST PROCESSING HISTORY: Cognitive impairment and memory loss. Evaluate for structural cause. TECHNIQUE: Axial fast FLAIR, T2, diffusion and susceptibility weighted imaging without contrast, using the ADNI dementia protocol and 3-D post-processing using the NeuroQuant software at an independent workstation with concurrent physician supervision and images were created, reviewed and archived. MQ: [id number] COMPARISON: None RESULT: QUALITATIVE: Acute Intracranial Process: None. Age related white matter changes (ARWMC) rating: White matter lesions: 1 Basal ganglia lesions: 0 Prior intracranial hemorrhage: Parenchymal microhemorrhages: 0 Parenchymal macrohemorrhages: None Subarachnoid: None Qualitative brain and hippocampal volume: There is moderate cortical volume loss in view of the moderate enlargement of the cortical sulci. There is moderate central white matter volume loss in view of the moderate enlargement of the ventricular system. There is severe hippocampal volume loss relative to the parenchymal volume loss elsewhere based on visual inspection Ventricles: Commensurate with volume loss. Brain Parenchymal Signal and Morphology: The brain parenchyma is otherwise within normal limits of signal and morphology. There is no evidence of an intracranial mass or extraaxial fluid collection. Other Significant Findings: Presumed chronic ischemic changes within neris. Small chronic lacunar infarcts within the cerebellum. Nonspecific bilateral mastoid fluid. Moderate pannus formation at C1-C2 articulation. Degenerative changes within upper cervical spine with suspected moderate spinal canal stenosis at C4-C5. QUANTITATIVE: Exam Quality: Good for volumetric analysis. Segmentation: Negligible mismapping by visual inspection. Quantitative Data: Total Hippocampal Volume: Percentile for Similar Age: 1st Asymmetry Index: -27.2 Lateral Ventricular Volume: Percentile for Similar Age: 54th Asymmetry Index: -5.5 Inferior Lateral Vent Volume: Percentile for similar age: 98th Asymmetry Index: 8.4 Total Brain Volume Percentile for Similar Age: 1st Concordance between qualitative and quantitative hippocampal volume assessment: Concordant. Change in brain volumes: No previous volumetric study for comparison Mean hippocampal volume loss among normal elderly: 0.7% per year, (-0.3 to 1.7; Delores 2008; also Paulo 2010). IMPRESSION: * No evidence of an acute intracranial process or intracranial mass. * Moderate generalized volume loss. * Hippocampal volumes at the 1st percentile when compared to age matched normal controls by quantitative analysis. * Mild white matter disease which is nonspecific but likely reflective of chronic microvascular ischemia. Presumed chronic ischemic changes within neris. Small chronic lacunar infarcts within cerebellum. * No evidence of parenchymal microhemorrhages by MRI. * Moderate pannus formation at C1-C2 articulation. Degenerative changes within upper cervical spine with suspected moderate spinal canal stenosis at C4-C5. * Nonspecific bilateral mastoid fluid. REFERENCES: White Matter Lesions: 0 = No lesions, including symmetrical, well-defined caps or bands 1 = Focal Lesions 2 = Beginning of [place] 3 = Diffuse Involvement of Entire Region Basal Ganglia Lesions: 0 = No Lesions 1 = 1 Focal Lesion (>5mm) 2 = >1 Focal Lesion (>5mm) 3 = Confluent Lesions Paulo Ramsey, et al. The clinical use of structural MRI in Alzheimer disease. Nature Reviews Neurology 6;67 (2010). Delores et al. Validation of a fully automated 3D hippocampal segmentation method using subjects with Alzheimer's disease mild cognitive impairment, and elderly controls. Neuroimage 43;59 (2008). Teresa et al. A New Rating Scale for Age-Related White Matter Changes Applicable to MRI and CT. Stroke. 32:1318 (2001). * Asymmetry index defined as difference between left and right volumes divided by mean or [(L-R/Mean) x 100] (%). Age-matched reference charts measure total hippocampal volume (% of intracranial volume). See results from the analysis charts for details. Parquet Floor Layer'S Helper: PSCB Transcribe Date/Time: Sep 29 2024 7:39A Dictated by : JOYCE FREDERICK MD This examination was interpreted and the report reviewed and electronically signed by: JOYCE FREDERICK MD on Sep 29 2024 7:59AM EST [id number] CN Normal [facility] MRI BRAIN WO IVCONon 024 MRI BRAIN WO IVCON * * *Final Report* * * DATE OF EXAM: Sep 28 2024 10:56AM [facility] 0294 - MRI BRAIN WO IVCON / PROCEDURE REASON: Cognitive impairment, mild, so stated * * * * Physician Interpretation * * * * EXAMINATION: MRI BRAIN WO IVCON, MRI 3D POST PROCESSING HISTORY: Cognitive impairment and memory loss. Evaluate for structural cause. TECHNIQUE: Axial fast FLAIR, T2, diffusion and susceptibility weighted imaging without contrast, using the ADNI dementia protocol and 3-D post-processing using the [employer]ak[employer] software at an independent workstation with concurrent physician supervision and images were created, reviewed and archived. MQ: [id number] COMPARISON: None RESULT: QUALITATIVE: Acute Intracranial Process: None. Age related white matter changes (ARWMC) rating: White matter lesions: 1 Basal ganglia lesions: 0 Prior intracranial hemorrhage: Parenchymal microhemorrhages: 0 Parenchymal macrohemorrhages: None Subarachnoid: None Qualitative brain and hippocampal volume: There is moderate cortical volume loss in view of the moderate enlargement of the cortical sulci. There is moderate central white matter volume loss in view of the moderate enlargement of the ventricular system. There is severe hippocampal volume loss relative to the parenchymal volume loss elsewhere based on visual inspection Ventricles: Commensurate with volume loss. Brain Parenchymal Signal and Morphology: The brain parenchyma is otherwise within normal limits of signal and morphology. There is no evidence of an intracranial mass or extraaxial fluid collection. Other Significant Findings: Presumed chronic ischemic changes within neris. Small chronic lacunar infarcts within the cerebellum. Nonspecific bilateral mastoid fluid. Moderate pannus formation at C1-C2 articulation. Degenerative changes within upper cervical spine with suspected moderate spinal canal stenosis at C4-C5. QUANTITATIVE: Exam Quality: Good for volumetric analysis. Segmentation: Negligible mismapping by visual inspection. Quantitative Data: Total Hippocampal Volume: Percentile for Similar Age: 1st Asymmetry Index: -27.2 Lateral Ventricular Volume: Percentile for Similar Age: 54th Asymmetry Index: -5.5 Inferior Lateral Vent Volume: Percentile for similar age: 98th Asymmetry Index: 8.4 Total Brain Volume Percentile for Similar Age: 1st Concordance between qualitative and quantitative hippocampal volume assessment: Concordant. Change in brain volumes: No previous volumetric study for comparison Mean hippocampal volume loss among normal elderly: 0.7% per year, (-0.3 to 1.7; Delores 2008; also Paulo 2010). IMPRESSION: * No evidence of an acute intracranial process or intracranial mass. * Moderate generalized volume loss. * Hippocampal volumes at the 1st percentile when compared to age matched normal controls by quantitative analysis. * Mild white matter disease which is nonspecific but likely reflective of chronic microvascular ischemia. Presumed chronic ischemic changes within neris. Small chronic lacunar infarcts within cerebellum. * No evidence of parenchymal microhemorrhages by MRI. * Moderate pannus formation at C1-C2 articulation. Degenerative changes within upper cervical spine with suspected moderate spinal canal stenosis at C4-C5. * Nonspecific bilateral mastoid fluid. REFERENCES: White Matter Lesions: 0 = No lesions, including symmetrical, well-defined caps or bands 1 = Focal Lesions 2 = Beginning of [place] 3 = Diffuse Involvement of Entire Region Basal Ganglia Lesions: 0 = No Lesions 1 = 1 Focal Lesion (>5mm) 2 = >1 Focal Lesion (>5mm) 3 = Confluent Lesions Paulo Ramsey et al. The clinical use of structural MRI in Alzheimer disease. Nature Reviews Neurology 6;67 (2010). Delores et al. Validation of a fully automated 3D hippocampal segmentation method using subjects with Alzheimer's disease mild cognitive impairment, and elderly controls. Neuroimage 43;59 (2008). Teresa et al. A New Rating Scale for Age-Related White Matter Changes Applicable to MRI and CT. Stroke. 32:1318 (2001). * Asymmetry index defined as difference between left and right volumes divided by mean or [(L-R/Mean) x 100] (%). Age-matched reference charts measure total hippocampal volume (% of intracranial volume). See results from the analysis charts for details. Parquet Floor Layer'S Helper: JULIOCESAR Transcribe Date/Time: Sep 29 2024 7:39A Dictated by : JOYCE FREDERICK MD This examination was interpreted and the report reviewed and electronically signed by: JOYCE FREDERICK MD on Sep 29 2024 7:59AM EST [id number] Normal [facility] normalized rat io (INR) calculationOrdered By: Lisandra Cao on 09-19-2024 INR Coag (Bld) [Relative time] 2.1 {INR} [facility] Prothrombin Time w/INRon INR Coag (PPP) [Relative time] 2.1 {INR} Normal [facility] Comment on above: Performed By: #### L 300.3900 ####[facility] [address] [place], [address] PT Coag (PPP) [Time] 23.2 s High 11.7-14.9 [facility] Comment on above: Performed By: #### L 300.3900 ####[facility] [address] [place], [address] Prothrombin timeOrdered By: Lisandra Cao on 09-19-2024 PT Coag (PPP) [Time] 23.2 s High 11.7-14.9 [facility] Telephone (GERIWR) NEDAKEISHA Marie ([id number]) 1945 F Date Time Provider Department 09/13/24 XOCHITL CASTREJON During your visit today, we recorded the following information about you: Jamari Maki MA 09/13/2024 10:40 AM Signed Patient schedule for MRI follow up on 09/21/24 but does not have MRI until September. Patient r/s to next available after testing, 10/27/24. PSS attempted to contact patient, no answer and VM full. Will try again. JAVIER Mcmahon Rachel L, MA 09/19/2024 1:17 PM Signed Patient has been rescheduled. Jamari Maki MA Allergies As of Date: 09/13/2024 Noted Allergy Reaction TIZANIDINE 10/07/2023 1 - Mental Status Change 14 - Other: See Comments Comments: Made her feel like in another world. Very dry mouth. Stumbling/falling AMOXICILLIN 07/14/2005 4 - Hives ASPIRIN 01/30/2009 Comments: Hives, shortness of breath SULFA (SULFONAMIDE ANTIBIOTICS) 07/14/2005 4 - Hives Date Reviewed: 09/09/2024 Reviewed by: Whitney Hammond APRN.RADAR ENGINEERING TEACHER - Fully Assessed Reason for Visit: Appointment [[id number]] Prescriptions as of 09/19/2024 - oxyCODONE IR (ROXICODONE) 5 mg immediate [...] by mouth two times a day. - fluticasone-vilanter ol (BREO ELLIPTA) 100-25 mcg/dose inhaler Inhale 1 Inhalation as instructed once daily. - albuterol HFA (PROAIR HFA) 90 mcg/actuation inhaler Inhale 2 Puffs as instructed every 4 hours as needed for wheezing/shortness of breath. 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) - oxybutynin ER (DITROPAN XL) 10 mg [...] 2 DM - Controlled E11.9 Insulin: No Problem List As Of Date 09/13/2024 Noted Resolved Congenital obstructive defects of renal [...] circulati*09/23/2023 Encounter Status:Closed by JAMARI MAKI on 09/19/24 [facility] CNOVon 09-09-2024 CNOV Office Visit (INTMWS) KEISHA RED ([id number]) 1945 F Date Time Provider Department 09/09/24 11:40 AM WHITNEY HAMMOND INTMWS During your visit today, we recorded the following information about you: Pulse Blood pressure Weight 68/minute 98/60 81.6 kg Whitney Hammond APRN.RADAR ENGINEERING TEACHER 09/09/2024 1:17 PM Signed SUBJECTIVE Keisha Red is a 79 year old female here today for a check up on her medical problems. Chief Complaint Patient presents with: Recheck HPI Keisha Red is a 79 year old female. She is an established patient of Joon Lopez MD. Here today for a routine 3 month follow up. She has been seen with geriatrics. Started on Zoloft. Seen in yesterday, on treatment for UTI with Macrobid. In regards to medications currently taken for pain management, the patient is tolerating these medications well. She reports that the medications improve her quality of life and ability to function. She denies misuse, abuse or diversion of medications. Due for labs next visit, dm has been controlled. On coumadin for her history of a flutter. Tolerating well. Her medications were reviewed today and her list is now up to date. Medications Current Outpatient Medications Medication Sig nitrofurantoin monohydrate and macrocrystal (MACROBID) 100 mg capsule Take 1 capsule by mouth two times a day for 7 days. oxyCODONE IR (ROXICODONE) 5 mg immediate release tablet Take by mouth every 8 hours as needed for pain. Managed by Dr. Mora, Pain Management manages sertraline (ZOLOFT) 50 mg tablet Take 1 tablet by mouth once daily. Please take half pill for a week and then increase to a full pill trospium (SANCTURA) 20 mg tablet Take 1 tablet by mouth two times a day. fluticasone-vilanter ol (BREO ELLIPTA) 100-25 mcg/dose inhaler Inhale 1 Inhalation as instructed once daily. albuterol HFA (PROAIR HFA) 90 mcg/actuation inhaler Inhale 2 Puffs as instructed every 4 hours as needed for wheezing/shortness of breath. 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 warfarin (COUMADIN) 5 mg tablet Take 1 tablet by mouth once daily. montelukast (SINGULAIR) 10 mg tablet Take 10 mg by mouth daily at bedtime. diclofenac (VOLTAREN ARTHRITIS PAIN) 1 % topical gel Apply 2 g to affected area four times daily. Takes as needed Cholecalciferol, Vitamin D3, 50 mcg (2,000 unit) [...] mouth two times a day with meals. triamcinolone acetonide (KENALOG) 0.1 % cream Apply 1 application to affected area three times daily as needed. For rash on extremities and leg TENS unit and electrodes cmpk 1 Each [...] - Controlled E11.9 Insulin: No No current facility-administere d medications for this visit. ALLERGIES Allergen Reactions Tizanidine Mental Status Change, Other: See Comments Made her feel like in another world. Very dry mouth. Stumbling/falling Amoxicillin Hives Aspirin Hives, shortness of breath Sulfa (Sulfonamide * Hives ACTIVE PROBLEM LIST Obesity, Class I, Bmi 30-34.9 - 09/23/2023 Hemorrhagic Disorder Due to Extrinsic Circulating Anticoagulants ([facility]) - 09/23/2023 Ulcer of Right Lower Extremity With Fat Layer Exposed ([facility]) - 07/26/2023 Pulmonary Hypertension ([facility]) - 05/03/2023 Ramesh (Obstructive Sleep Apnea) - 01/21/2021 Pacemaker - 01/21/2021 Bilateral Carpal Tunnel Syndrome - 01/21/2021 Atrial Flutter ([facility]) - 04/12/2019 Anticoagulated On Coumadin - 04/12/2019 Severe Low Back Pain - 12/28/2018 Ddd (Degenerative Disc Disease), Lumbar Comment: Dr. 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 Normal [facility] Bacteria Ur Culton 4 Bacteria identified Cx Nom (U) ORGANISM ID: 1 >=100,000 CFU/ml Escherichia coli ORGANISM ID: 1 (ESCHERICHIA COLI) ANTIBIOTIC INTERPRETATION CORRINA STATUS REFERENCE RANGE Ampicillin S <=2 F Susceptible <=8 , Intermediate >8 , Resistant >16 Cefazolin S <=4 F Susceptible 0-16 , Intermediate <0 or >16 , Resistant >16 For uncomplicated urinary tract infections, cefazolin results can be used to predict susceptibility or resistance to cephalexin. Ceftriaxone S <=1 F Susceptible <=1 , Intermediate >1 , Resistant >=4 Cefepime S <=1 F Susceptible <=2 , Susceptible-Dose Dependent >2 , Resistant >=16 Ertapenem S <=0.5 F Susceptible <=0.5 , Intermediate >.5 , Resistant >1 Meropenem S <=0.25 F Susceptible <=1 , Intermediate >1 , Resistant >2 Ampicillin/Sulbact S <=2 F Susceptible <=8 , Intermediate >8 , Resistant >16 Piperacillin/Tazobac S <=4 F Susceptible <16 , Susceptible-Dose Dependent >=16 , Resistant >=32 Gentamicin S <=1 F Susceptible <=2 , Intermediate >2 , Resistant >=8 Tobramycin S <=1 F Susceptible <4 , Intermediate >=4 , Resistant >=8 Trimeth sulfameth S <=20 F Susceptible <=40 , Resistant >40 Ciprofloxacin S <=0.25 F Susceptible <0.5 , Intermediate >=.5 , Resistant >=1 Nitrofurantoin S 32 F Susceptible <=32 , Intermediate >32 , Resistant >64 Abnormal [facility] Comment on above: Performed By: #### 6 30-4 ####[facility] LABCLIA [id number] [address] OF [facility] CNOVon 09-08-2024 CNOV Office Visit (UCWSTR) NEDAKEISHA Tracie ([id number]) 1945 F Date Time Provider Department 09/08/24 2:00 PM MARGARET WILDE UCWSTR During your visit today, we recorded the following information about you: Temperature Pulse Respiration Blood pressure 98.3 degrees 71/minute 18/minute 116/70 Weight 82.8 kg Margaret Wilde APRN.CNP 09/08/2024 2:28 PM Signed CC: Patient presents with: UTI: X2 days, family states confusion, pt denies symptoms HPI Keisha Tracie PeteWinona is a 79 year old female who presents with complaint of possible UTI. These symptoms have been continuous from the last uti Associated symptoms: confusion Denies: burning, pressure, fever, chills, and sweats Treatments: nothing The ROS was otherwise negative. PMH, Medications, labs, allergies, and recent past visits with PCP were reviewed and updated as able. PHYSICAL EXAM: BP 116/70 Pulse 71 Temp 36.8 ?C (98.3 ?F) Resp 18 Wt 82.8 kg (182 lb 8.7 oz) SpO2 97% BMI 29.46 kg/m? General: Well appearing and alert CV: Regular rate and rhythm without obvious murmur Lungs: clear to auscultation bilaterally Back: straight and symmetric Abdomen: soft, nontender, nondistended PAST MEDICAL HISTORY Diagnosis Date Allergic rhinitis, [...] Right shoulder s/p fall with reduction at [facility] Type II or unspecified type diabetes [...] Amoxicillin, Aspirin, and Sulfa (Sulfonamide Antibiotics) MEDICATIONS nitrofurantoin monohydrate and macrocrystal (MACROBID) 100 mg capsule Take 1 capsule by mouth two times a day for 7 days. oxyCODONE IR (ROXICODONE) 5 mg immediate release tablet Take by mouth every 8 hours as needed for pain. Managed by Dr. Mora, Pain Management manages sertraline (ZOLOFT) 50 mg tablet Take 1 tablet by mouth once daily. Please take half pill for a week and then increase to a full pill trospium (SANCTURA) 20 mg tablet Take 1 tablet by mouth two times a day. fluticasone-vilanter ol (BREO ELLIPTA) 100-25 mcg/dose inhaler Inhale 1 Inhalation as instructed once daily. albuterol HFA (PROAIR HFA) 90 mcg/actuation inhaler Inhale 2 Puffs as instructed every 4 hours as needed for wheezing/shortness of breath. 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 warfarin (COUMADIN) 5 mg tablet Take 1 tablet by mouth once daily. montelukast (SINGULAIR) 10 mg tablet Take 10 mg by mouth daily at bedtime. diclofenac (VOLTAREN ARTHRITIS PAIN) 1 % topical gel Apply 2 g to affected area four times daily. Takes as needed Cholecalciferol, Vitamin D3, 50 mcg (2,000 unit) [...] needed. For rash on extremities and leg blood sugar diagnostic (BLOOD GLUCOSE TEST) test strip Test blood sugar(s) 1 times daily. Dx: Type 2 DM - Controlled E11.9 Insulin: No Lancets lancets Test blood sugar(s) 1 times daily. Dx: Type 2 DM - Controlled E11.9 Insulin: No FAMILY HISTORY Problem Relation Age of Onset Diabetes Mother Coronary Artery Disease Father Cancer Sister lung Dementia Brother Migraines Daughter Migraines Son other (nephrolithiasis) Son Hypertension Son Social History Tobacco Use Smoking status: Never Smokeless tobacco: Never Vaping Use Vaping (more content not included)... Normal [facility] Prothrombin Time w/INRon INR Coag (PPP) [Relative time] 2.2 {INR} Normal [facility] Comment on above: Performed By: #### L 318.1760 ####[facility] [address] [place], [address] PT Coag (PPP) [Time] 24.3 s High 11.7-14.9 [facility] Comment on above: Performed By: #### L 300.3900 ####[facility] [address] [place], [place], [id number] UA DIP, URINE (POC)on 2023 BILIRUBIN UA (POCT) Negative Negative [facility] CLARITY UA (POCT) Cloudy [facility] COLOR UA (POCT) Yellow [facility] GLUCOSE UA (POCT) Negative Negative mg/dL [facility] Hemoglobin Ql (U) Moderate Abnormal Negative [facility] Interpretation and review of laboratory results Abnormal [facility] KETONE UA (POCT) Negative Negative mg/dL [facility] LEUKOCYTES UA (POCT) Large Abnormal Negative [facility] NITRITE UA (POCT) Positive Abnormal Negative [facility] PH UA (POCT) 6.0 4.5 - 8.0 [facility] Protein Ql (U) 100 mg/dL Abnormal Negative [facility] SPECIFIC GRAVITY UA (POCT) 1.020 1.005 - 1.030 [facility] UROBILINOGEN UA (POCT) 0.2 Carlita l E.U./dL [facility] Location:[facility], [facility], [place], [address] [facility] POINT OF CARE [facility] Prothrombin Time w/INRon INR Coag (PPP) [Relative time] 1.9 {INR} Normal [facility] Comment on above: Performed By: #### L 948.3900 ####[facility] [address] [place], [place], [address] PT Coag (PPP) [Time] 21.9 s High 11.7-14.9 [facility] Comment on above: Performed By: #### L [id number] ####[facility] [address] [place], [place], [id number] Prothrombin Time w/INRon INR Coag (PPP) [Relative time] 4.6 {INR} Invalid Interpretation Code [facility] Comment on above: Result Comment: CRIT ICAL VALUE CALLED TO JC CHU ([facility])08/26/24 1049 Magan R Stoner.RESULTS READ BACK BY SAME. Performed By: #### L 300.3900 ####[facility] [address] [place], [address] PT Coag (PPP) [Time] 42.9 s High 11.7-14.9 [facility] Comment on above: Performed By: #### L 300.3900 ####[facility] [address] [place], [place], [id number] Prothrombin Time w/INRon INR Coag (PPP) [Relative time] 3.3 {INR} Normal [facility] Comment on above: Order Comment: Comme nts: STANDING ORDER Performed By: #### L 300.3900 ####[facility] [address] [place], [address] PT Coag (PPP) [Time] 33.2 s High 11.7-14.9 [facility] Comment on above: Order Comment: Comme nts: STANDING ORDER Performed By: #### L 300.3900 ####[facility] [address] [place], [place], [address] Elbow min 3 Viewson 08-20-20 24 Elbow min 3 Views [facility] Department Summary on 08-20-2024 Emergency Department Summary Normal [facility] Shoulder min 2 Viewson 08-20 Shoulder min 2 Views Normal [facility] Wrist min 3 Viewson 08-20-20 24 Wrist min 3 Views Normal [facility] Wrist min 3 Views [facility] CNOVon 08-17-2024 CNOV Office Visit (UCWSTR) KEISHA RED ([id number]) 1945 F Date Time Provider Department 08/17/24 11:30 AM SANDRA PAYTON UCWSTR During your visit today, we recorded the following information about you: Pulse Respiration Blood pressure Weight 75/minute 20/minute 100/60 81.1 kg Sandra Payton PA-C 08/17/2024 12:25 PM Signed This note was created using Photobucket. Subjective Keisha Red is a 79 year [...] dysuria, enuresis, flank pain, hematuria and urgency. Psychiatric/Behavior al: Positive for confusion. All other systems reviewed [...] Diagnosis:Acute UTI [N39.0] Order(s):UA DIP, URINE (POC) [9100675] Order #: [id number]. #:[id number] Prescriptions as of 08/17/2024 - oxyCODONE IR [...] by mouth two times a day. - fluticasone-vilanter ol (BREO ELLIPTA) 100-25 mcg/dose inhaler Inhale 1 Inhalation as instructed once daily. - albuterol HFA (PROAIR HFA) 90 mcg/actuation inhaler Inhale 2 Puffs as instructed every 4 hours as needed for wheezing/shortness of breath. 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) - nitrofurantoin macrocrystal (MACRODANTIN) 100 mg [...] by mouth (more content not included)... Normal [facility] UA DIP, URINE (POC)on 2023 BILIRUBIN UA (POCT) Negative Negative [facility] CLARITY UA (POCT) Cloudy [facility] COLOR UA (POCT) Yellow [facility] GLUCOSE UA (POCT) Negative Negative mg/dL [facility] Hemoglobin Ql (U) Moderate Abnormal Negative [facility] Interpretation and review of laboratory results Abnormal [facility] KETONE UA (POCT) Negative Negative mg/dL [facility] LEUKOCYTES UA (POCT) Large Abnormal Negative [facility] NITRITE UA (POCT) Positive Abnormal Negative [facility] PH UA (POCT) 5.5 4.5 - 8.0 [facility] Protein Ql (U) 100 mg/dL Abnormal Negative [facility] SPECIFIC GRAVITY UA (POCT) 1.025 1.005 - 1.030 [facility] UROBILINOGEN UA (POCT) 0.2 Carlita l E.U./dL [facility] Location:[address], [place], [address] [facility] POINT OF CARE [facility] Prothrombin Time w/INRon INR Coag (PPP) [Relative time] 2.6 {INR} Normal [facility] Comment on above: Performed By: #### L 140.5450 ####[facility] [address] [place], [place], [address] PT Coag (PPP) [Time] 27.9 s High 11.7-14.9 [facility] Comment on above: Performed By: #### L 300.3900 ####[facility] [address] [place], [address] CNOVon 08-03-2024 CNOV Office Visit (GERIWR) KEISHA RED ([id number]) 1945 F Date Time Provider Department 08/03/24 8:00 AM XOCHITL CASTREJON During your visit today, we recorded the following information about you: Pulse Respiration Blood pressure Weight Normal [facility] CNPNon 08-03-2024 CNPN Telephone (EDP BiotechIWR) KEISHA RED ([id number]) 1945 F Date Time Provider Department 08/03/24 XOCHITL CASTREJON During your visit today, we recorded the following information about you: Jamari Maki MA 08/03/2024 1:48 PM Signed Vitamin b12 ordered by Dr. Castrejon and patient had drawn at [facility]. View External Labs - Vit B12,INR, [ID [id number]] Please review and advise. Jamari Maki MA [...] by mouth two times a day. - fluticasone-vilanter ol (BREO ELLIPTA) 100-25 mcg/dose inhaler Inhale 1 Inhalation as instructed once daily. - albuterol HFA (PROAIR HFA) 90 mcg/actuation inhaler Inhale 2 Puffs as instructed every 4 hours as needed for wheezing/shortness of breath. 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) - nitrofurantoin macrocrystal (MACRODANTIN) 100 mg [...] Encounter Status:Closed by JAMARI MAKI on 08/17/24 [facility] Telephone (INTMWS) KEISHA RED ([id number]) 1945 F Date Time Provider Department 08/03/24 XOCHITL CASTREJON INTMWS During your visit today, we recorded the following information about you: Roopa Edgar RN 08/03/2024 11:13 AM Signed Daughter (Dian) calls to let provider know that she has spoke with Maddie from [facility] and patients pacemaker is MRI compatible and she could have it done at the [place] location. Prior Auth is pending. VLAD Reyna Rachel L, MA 08/03/2024 12:08 PM Signed Phone call to [facility] to inform that neither or [facility] do the type of MRI that was ordered. Informed Dian that I will have a teaching dietitian call her to get testing scheduled. Pacemaker card printed from [facility] [employer]. Sent to scanning. Sheridan, can you please call this patient's daughter Dian to schedule the MRI? JAVIER Mcmahon Melody 08/03/2024 12:45 PM Signed I have placed [...] by mouth two times a day. - fluticasone-vilanter ol (BREO ELLIPTA) 100-25 mcg/dose inhaler Inhale 1 Inhalation as instructed once daily. - albuterol HFA (PROAIR HFA) 90 mcg/actuation inhaler Inhale 2 Puffs as instructed every 4 hours as needed for wheezing/shortness of breath. 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) - nitrofurantoin macrocrystal (MACRODANTIN) 100 mg [...] 04/12/2019 A (more content not included)... Normal [facility] Tele[facility] (INTMWS) KEISHA RED ([id number]) 1945 F Date Time Provider Department 08/03/24 [...] , it is OK to leave message [phone] (home) [phone] (cell) Payor: [employer] / Plan: [facility] / Product Type: HMO / [place] [...] by mouth two times a day. - fluticasone-vilanter ol (BREO ELLIPTA) 100-25 mcg/dose inhaler Inhale 1 Inhalation as instructed once daily. - albuterol HFA (PROAIR HFA) 90 mcg/actuation inhaler Inhale 2 Puffs as instructed every 4 hours as needed for wheezing/shortness of breath. 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) - nitrofurantoin macrocrystal (MACRODANTIN) 100 mg [...] Pacemaker [ (more content not included)... Normal [facility] Prothrombin Time w/INRon INR Coag (PPP) [Relative time] 2.8 {INR} Normal [facility] Comment on above: Performed By: #### L 300.3900, L503.0105 ####[facility] [address] [place], [address] PT Coag (PPP) [Time] 29.2 s High 11.7-14.9 [facility] Comment on above: Performed By: #### L 300.3900, L503.0105 ####[facility] [address] [place], [place], [id number] Vitamin B12on 08-03-2024 Cobalamin (Vitamin B12) [Mass/Vol] 889 pg/mL Normal 211-911 [facility] Comment on above: Performed By: #### L 300.3900, L503.0105 ####[facility] [address] [place], [address] Prothrombin Time w/INRon INR Coag (PPP) [Relative time] 1.7 {INR} Normal [facility] Comment on above: Performed By: #### L 300.3900 ####[facility] [address] [place], [address] PT Coag (PPP) [Time] 20.0 s High 11.7-14.9 [facility] Comment on above: Performed By: #### L 300.3900 ####[facility] [address] [place], [address] Pacemaker Checkon 07-19-2024 Pacemaker Check Normal [facility] Prothrombin Time w/INRon INR Coag (PPP) [Relative time] 2.8 {INR} Normal [facility] Comment on above: Performed By: #### L 300.3900 ####[facility] [address] [place], [address] PT Coag (PPP) [Time] 29.2 s High 11.7-14.9 [facility] Comment on above: Performed By: #### L 300.3900 ####[facility] [address] [place], [address] CNPNon 07-06-2024 CNPN Telephone (INTMWS) KEISHA RED ([id number]) 1945 F Date Time Provider Department 07/06/24 JOON LOPEZ INTMWS During your visit today, we recorded the following information about you: Liza Santana LPN 07/06/2024 10:59 AM Signed FYI Calling to report, Chris went out to [place] Patient from , she reported a fall [...] pain for up to 7 days. - fluticasone-vilanter ol (BREO ELLIPTA) 100-25 mcg/dose inhaler Inhale 1 Inhalation as instructed once daily. - albuterol HFA (PROAIR HFA) 90 mcg/actuation inhaler Inhale 2 Puffs as instructed every 4 hours as needed for wheezing/shortness of breath. 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 Uses [facility] in [place]. Carolina Kuo LPN 07/05/2024 1:43 PM Signed Prescription Refill [...] pain for up to 7 days. Carolina Kuo LPN July 05, 2024 1:42 PM Whitney Hammond APRN.CNP 07/06/2024 10:50 AM Signed PDMP website checked and validated. All prescriptions have been APPROPRIATELY filled. No suspicious activity was identified. 07/06/2024 by Whitney Hammond APRN.CNP Allergies As of Date: 07/05/2024 Noted Allergy [...] pain for up to 7 days. - fluticasone-vilanter ol (BREO ELLIPTA) 100-25 mcg/dose inhaler Inhale 1 Inhalation as instructed once daily. - albuterol HFA (PROAIR HFA) 90 mcg/actuation inhaler Inhale 2 Puffs as instructed every 4 hours as needed for wheezing/shortness of breath. 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 Normal [facility] Protime w/INR Fingerstickon 07-04-2024 INR Coag (PPP) [Relative time] 2.0 {INR} Normal [facility] Comment on above: Result Comment: Crit ical Value > 4.0 Performed By: #### L 9200.0000 ####[facility] [address] [place], [place], [address] Protime Coagsen 21.0 SEC High 11.7-14.9 [facility] Comment on above: Performed By: #### L 9200.0000 ####[facility] [address] [place], [place], [address] TXT:Device Implant / Explant on 07-04-2024 TXT:Device Implant / Explant Normal [facility] Pulmonary Visit Reporton Pulmonary Visit Report Normal [facility] CNPNon 06-28-2024 [facility] KEISHA RED ([id number]) 1945 F Date Time Provider Department 06/28/24 JOON LOPEZ [facility] During your visit today, we recorded the following information about you: Any Peacock LPN 06/28/2024 2:56 PM Kera Camargo with [facility] [employer] is calling in regards to rx for Symbicort 160-4.5 mg inhaler. Mary Jo reports pt cannot afford Symbicort and the landcare facilitator does not have a patient assistance program. Mary Jo reports the landcare facilitator for Breo does have an assistance program and is asking if pcp would prescribe pt Breo inhaler instead. If so Mary Jo is requesting rx be faxed to [phone] Attn: Mary Jo. BOONE Fowler Liza D, MD 06/29/2024 1:16 PM Signed Patient's request for medication is as follows: Requested Prescriptions Signed Prescriptions Disp Refills fluticasone-vilanter ol (BREO ELLIPTA) 100-25 mcg/dose inhaler 180 Each [...] without complication [J45.40] Comment:Stable on current meds Order(s):fluticasone -vilanterol (BREO ELLIPTA) 100-25 mcg/dose inhalerInhale 1 Inhalation as instructed once daily.Disp: 180 EachRfl: 3 Prescriptions as of 07/04/2024 - fluticasone-vilanter ol (BREO ELLIPTA) 100-25 mcg/dose inhaler Inhale 1 Inhalation as instructed once daily. - albuterol HFA (PROAIR HFA) 90 mcg/actuation inhaler Inhale 2 Puffs as instructed every 4 hours as needed for wheezing/shortness of breath. 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) - nitrofurantoin macrocrystal (MACRODANTIN) 100 mg [...] (obstructive slee (more content not included)... Normal [facility] CNOVon 06-22-2024 CNOV Office Visit (INTMWS) NEDAKEISHA SANTOYO ([id number]) 1945 F Date Time Provider Department 06/22/24 9:20 AM JOON LOPEZ INTMWS During your visit today, we recorded the following information about you: Temperature Pulse Respiration Blood pressure 97.1 degrees 86/minute 16/minute 110/56 Weight Height 85.3 kg 1.676 m Joon Lopez MD 06/22/2024 11:00 AM Signed This note was created using Surfkitchenriter. Subjective Keisha Red is a 79 year old female. Patient presents with: Hospital F/U: dehydration c/o right knee goes out on her SUBJECTIVE: Keisha Red is a 79 year old year old lady here today for hospital appointment for review of medical conditions. Was admitted and discharged Saturday. Patient is a 79-year-old female presenting for a follow-up visit after a recent hospitalization. Patient was admitted to [facility] on the for confusion and was discharged [...] Right shoulder s/p fall with reduction at [facility] No date: Type II or unspecified type diabetes mellitus without mention of complication, not stated as uncontrolled No date: Unspecified asthma(493.90) No date: Unspecified essential hypertension Current Outpatient Medications Medication Sig albuterol HFA (PROAIR HFA) 90 mcg/actuation inhaler Inhale 2 Puffs as instructed every 4 hours as needed for wheezing/shortness of breath. 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) nitrofurantoin macrocrystal (MACRODANTIN) 100 mg capsule [...] needed. For rash on extremities and leg budesonide-formotero l (SYMBICORT) 160-4.5 mcg/actuation inhaler Inhale 2 Puffs as instructed twice daily. ([facility] pulmonology) blood sugar diagnostic (BLOOD GLUCOSE TEST) test strip Test blood sugar(s) 1 times daily. Dx: Type 2 DM - Controlled E11.9 Insulin: No Lancets lancets Test blood sugar(s) 1 times daily. Dx: Type 2 DM - Controlled E11.9 Insulin: No No current facility-administere d medications for this visit. Review of Systems Objective BP 110/56 (BP Site: Right Arm, BP Position: Sitting, BP Cuff Size: Large Adult) Pulse 86 Temp 36.2 ?C (97.1 ?F) Resp 16 Ht 167.6 cm (5' 6) Wt 85.3 kg (188 lb 0.8 oz) SpO2 91% BMI 30.35 kg/m? Physical Exam Constitutional: Appearance: Normal appearance. HENT: Head: Normocephalic. Eyes: Conjunctiva/sclera: Conjunctivae (more content not included)... Normal [facility] CBC W/Diff, Automatedon 08-2 Absolute Neut Normal 2.0-7.7 [facility] Comment on above: Result Comment: Canc elled via OM: Order cancelled - Patient discharged Performed By: #### L 500.4050, L100.0100 ####[facility] [address] [place], [address] HCT Normal 37-47 [facility] Comment on above: Result Comment: Canc elled via OM: Order cancelled - Patient discharged Performed By: #### L 500.4050, L100.0100 ####[facility] [address] [place], [address] HGB Normal 12.0-15.0 [facility] Comment on above: Result Comment: Canc elled via OM: Order cancelled - Patient discharged Performed By: #### L 500.4050, L100.0100 ####[facility] [address] [place], [address] MCH Normal 27.0-32.0 [facility] Comment on above: Result Comment: Canc elled via OM: Order cancelled - Patient discharged Performed By: #### L 500.4050, L100.0100 ####[facility] [address] [place], [address] MCHC Normal 32-36 [facility] Comment on above: Result Comment: Canc elled via OM: Order cancelled - Patient discharged Performed By: #### L 500.4050, L100.0100 ####[facility] [address] [place], [address] MCV Normal 81-99 [facility] Comment on above: Result Comment: Canc elled via OM: Order cancelled - Patient discharged Performed By: #### L 500.4050, L100.0100 ####[facility] [address] [place], [address] NEUT% Normal 47-70 [facility] Comment on above: Result Comment: Canc elled via OM: Order cancelled - Patient discharged Performed By: #### L 500.4050, L100.0100 ####[facility] [address] [place], [address] PLT Normal 150-450 [facility] Comment on above: Result Comment: Canc elled via OM: Order cancelled - Patient discharged Performed By: #### L 500.4050, L100.0100 ####[facility] [address] [place], [address] RBC Normal 4.2-5.4 [facility] Comment on above: Result Comment: Canc elled via OM: Order cancelled - Patient discharged Performed By: #### L 500.4050, L100.0100 ####[facility] [address] [place], [address] RDW CV Normal 11.6-14.6 [facility] Comment on above: Result Comment: Canc elled via OM: Order cancelled - Patient discharged Performed By: #### L 500.4050, L100.0100 ####[facility] [address] [place], [address] RDW SD Normal 35.1-43.9 [facility] Comment on above: Result Comment: Canc elled via OM: Order cancelled - Patient discharged Performed By: #### L 500.4050, L100.0100 ####[facility] [address] [place], [address] WBC Normal 4.4-11.0 [facility] Comment on above: Result Comment: Canc elled via OM: Order cancelled - Patient discharged Performed By: #### L 500.4050, L100.0100 ####[facility] [address] [place], [address] CNPCassy 06-21-2024 [place] Telephone (INTMWS) NEDAKEISHA SANTOYO ([id number]) 1945 F Date Time Provider Department 06/21/24 JOON LOPEZ INTCORAL During your visit today, we recorded the following information about you: Maddie Rojo LPN 06/21/2024 3:31 PM Signed Soren with [facility], nursing called to report he did a resumption of pt and will be seeing pt starting next week. will see 1 time a week for 2 weeks. Dx: disease management education. [facility] took pt off the Flexeril because they thought this may be contributing to her confusion. No call back needed. BOONE Rnadall Terri, APRN.[employer] 06/21/2024 4:09 PM Signed Noted. Okay for [...] MA - Fully Assessed Reason for Visit: [facility] nursing [Other] Prescriptions as of 06/21/2024 - albuterol HFA (PROAIR HFA) 90 mcg/actuation inhaler Inhale 2 Puffs as instructed every 4 hours as needed for wheezing/shortness of breath. 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 ([facility] pulmonology) - blood sugar diagnostic (BLOOD GLUCOSE [...] Encounter Status:Closed by TRINI TANG on 06/21/24 Normal [facility] Metabolic Prof redd 06-21-2024 ALB Normal 3.2-5.0 [facility] Comment on above: Result Comment: Canc elled via OM: Order cancelled - Patient discharged Performed By: #### L 500.4050, L100.0100 ####[facility] [address] [place], [place], [address] ALK P Normal 45-117 [facility] Comment on above: Result Comment: Canc elled via OM: Order cancelled - Patient discharged Performed By: #### L 500.4050, L100.0100 ####[facility] [address] [place], [address] ALT Normal 13-56 [facility] Comment on above: Result Comment: Canc elled via OM: Order cancelled - Patient discharged Performed By: #### L 500.4050, L100.0100 ####[facility] [address] [place], [address] AST Normal 15-37 [facility] Comment on above: Result Comment: Canc elled via OM: Order cancelled - Patient discharged Performed By: #### L 500.4050, L100.0100 ####[facility] [address] [place], [address] BUN Normal 7-18 [facility] Comment on above: Result Comment: Canc elled via OM: Order cancelled - Patient discharged Performed By: #### L 500.4050, L100.0100 ####[facility] [address] [place], [address] BUN/CRE Normal 10-20 [facility] Comment on above: Result Comment: Canc elled via OM: Order cancelled - Patient discharged Performed By: #### L 500.4050, L100.0100 ####[facility] [address] [place], [address] CA,Total Normal 8.5-10.1 [facility] Comment on above: Result Comment: Canc elled via OM: Order cancelled - Patient discharged Performed By: #### L 500.4050, L100.0100 ####[facility] [address] [place], [address] CL Normal 98-107 [facility] Comment on above: Result Comment: Canc elled via OM: Order cancelled - Patient discharged Performed By: #### L 500.4050, L100.0100 ####[facility] [address] [place], [address] CO2 Normal 21.0-32.0 [facility] Comment on above: Result Comment: Canc elled via OM: Order cancelled - Patient discharged Performed By: #### L 500.4050, L100.0100 ####[facility] [address] [place], [address] CREAT,SERUM Normal 0.55-1.02 [facility] Comment on above: Result Comment: Canc elled via OM: Order cancelled - Patient discharged Performed By: #### L 500.4050, L100.0100 ####[facility] [address] [place], [address] EST GFR Normal >60 [facility] Comment on above: Result Comment: Canc elled via OM: Order cancelled - Patient discharged Performed By: #### L 500.4050, L100.0100 ####[facility] [address] [place], [address] EST GFR - AA Normal >60 [facility] Comment on above: Result Comment: Canc elled via OM: Order cancelled - Patient discharged Performed By: #### L 500.4050, L100.0100 ####[facility] [address] [place], [address] GAP Normal 5-15 [facility] Comment on above: Result Comment: Canc elled via OM: Order cancelled - Patient discharged Performed By: #### L 500.4050, L100.0100 ####[facility] [address] [place], [address] GLU Normal 74-106 [facility] Comment on above: Result Comment: Canc elled via OM: Order cancelled - Patient discharged Performed By: #### L 500.4050, L100.0100 ####[facility] [address] [place], [address] Potassium Normal 3.5-5.1 [facility] Comment on above: Result Comment: Canc elled via OM: Order cancelled - Patient discharged Performed By: #### L 500.4050, L100.0100 ####[facility] [address] [place], [address] T BILI Normal 0.20-1.00 [facility] Comment on above: Result Comment: Canc elled via OM: Order cancelled - Patient discharged Performed By: #### L 500.4050, L100.0100 ####[facility] [address] [place], [address] T PROT Normal 6.4-8.2 [facility] Comment on above: Result Comment: Canc elled via OM: Order cancelled - Patient discharged Performed By: #### L 500.4050, L100.0100 ####[facility] [address] [place], [address] Comprehensive Metabolic Profil Normal 136-145 [facility] Comment on above: Result Comment: Canc elled via OM: Order cancelled - Patient discharged Performed By: #### L 500.4050, L100.0100 ####[facility] [address] [place], [address] CBC W/Diff, Automatedon 08-2 Absolute Neut Normal 2.0-7.7 [facility] Comment on above: Result Comment: Canc elled via OM: Order cancelled - Patient discharged Performed By: #### L 100.0100, L500.4050 ####[facility] [address] [place], [address] HCT Normal 37-47 [facility] Comment on above: Result Comment: Canc elled via OM: Order cancelled - Patient discharged Performed By: #### L 100.0100, L500.4050 ####[facility] [address] [place], [address] HGB Normal 12.0-15.0 [facility] Comment on above: Result Comment: Canc elled via OM: Order cancelled - Patient discharged Performed By: #### L 100.0100, L500.4050 ####[facility] [address] [place], [address] MCH Normal 27.0-32.0 [facility] Comment on above: Result Comment: Canc elled via OM: Order cancelled - Patient discharged Performed By: #### L 100.0100, L500.4050 ####[facility] [address] [place], [address] MCHC Normal 32-36 [facility] Comment on above: Result Comment: Canc elled via OM: Order cancelled - Patient discharged Performed By: #### L 100.0100, L500.4050 ####[facility] [address] [place], [address] MCV Normal 81-99 [facility] Comment on above: Result Comment: Canc elled via OM: Order cancelled - Patient discharged Performed By: #### L 100.0100, L500.4050 ####[facility] [address] [place], [address] NEUT% Normal 47-70 [facility] Comment on above: Result Comment: Canc elled via OM: Order cancelled - Patient discharged Performed By: #### L 100.0100, L500.4050 ####[facility] [address] [place], [address] PLT Normal 150-450 [facility] Comment on above: Result Comment: Canc elled via OM: Order cancelled - Patient discharged Performed By: #### L 100.0100, L500.4050 ####[facility] [address] [place], [address] RBC Normal 4.2-5.4 [facility] Comment on above: Result Comment: Canc elled via OM: Order cancelled - Patient discharged Performed By: #### L 100.0100, L500.4050 ####[facility] [address] [place], [address] RDW CV Normal 11.6-14.6 [facility] Comment on above: Result Comment: Canc elled via OM: Order cancelled - Patient discharged Performed By: #### L 100.0100, L500.4050 ####[facility] [address] [place], [address] RDW SD Normal 35.1-43.9 [facility] Comment on above: Result Comment: Canc elled via OM: Order cancelled - Patient discharged Performed By: #### L 100.0100, L500.4050 ####[facility] [address] [place], [address] WBC Normal 4.4-11.0 [facility] Comment on above: Result Comment: Canc elled via OM: Order cancelled - Patient discharged Performed By: #### L 100.0100, L500.4050 ####[facility] [address] [place], [address] CNPNon 06-20-2024 [facility] Telephone (4CQ) KEISHA RED ([id number]) 1945 F Date Time Provider Department 06/20/24 JOON LOPEZ 4CQ During your visit today, we recorded the following information about you: Ira Chicas 06/20/2024 1:48 PM Signed Patient called to confirm appointment for 06/22 and then mention that she was discharged from [facility] on Tuesday 06/19 for dehydration. LolaGuerline montoyaBOONE 06/20/2024 4:11 PM Signed So noted. Scheduled [...] hours as needed for wheezing/shortness of breath. 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 ([facility] pulmonology) - blood sugar diagnostic (BLOOD GLUCOSE [...] Encounter Status:Closed by GUERLINE DAVILA on 06/20/24 Normal [facility] Metabolic Prof redd 06-20-2024 ALB Normal 3.2-5.0 [facility] Comment on above: Result Comment: Canc elled via OM: Order cancelled - Patient discharged Performed By: #### L 100.0100, L500.4050 ####[facility] [address] [place], [address] ALK P Normal 45-117 [facility] Comment on above: Result Comment: Canc elled via OM: Order cancelled - Patient discharged Performed By: #### L 100.0100, L500.4050 ####[facility] [address] [place], [address] ALT Normal 13-56 [facility] Comment on above: Result Comment: Canc elled via OM: Order cancelled - Patient discharged Performed By: #### L 100.0100, L500.4050 ####[facility] [address] [place], [address] AST Normal 15-37 [facility] Comment on above: Result Comment: Canc elled via OM: Order cancelled - Patient discharged Performed By: #### L 100.0100, L500.4050 ####[facility] [address] [place], [address] BUN Normal 7-18 [facility] Comment on above: Result Comment: Canc elled via OM: Order cancelled - Patient discharged Performed By: #### L 100.0100, L500.4050 ####[facility] [address] [place], [address] BUN/CRE Normal 10-20 [facility] Comment on above: Result Comment: Canc elled via OM: Order cancelled - Patient discharged Performed By: #### L 100.0100, L500.4050 ####[facility] [address] [place], [address] CA,Total Normal 8.5-10.1 [facility] Comment on above: Result Comment: Canc elled via OM: Order cancelled - Patient discharged Performed By: #### L 100.0100, L500.4050 ####[facility] [address] [place], [address] CL Normal 98-107 [facility] Comment on above: Result Comment: Canc elled via OM: Order cancelled - Patient discharged Performed By: #### L 100.0100, L500.4050 ####[facility] [address] [place], [address] CO2 Normal 21.0-32.0 [facility] Comment on above: Result Comment: Canc elled via OM: Order cancelled - Patient discharged Performed By: #### L 100.0100, L500.4050 ####[facility] [address] [place], [address] CREAT,SERUM Normal 0.55-1.02 [facility] Comment on above: Result Comment: Canc elled via OM: Order cancelled - Patient discharged Performed By: #### L 100.0100, L500.4050 ####[facility] [address] [place], [address] EST GFR Normal >60 [facility] Comment on above: Result Comment: Canc elled via OM: Order cancelled - Patient discharged Performed By: #### L 100.0100, L500.4050 ####[facility] [address] [place], [address] EST GFR - AA Normal >60 [facility] Comment on above: Result Comment: Canc elled via OM: Order cancelled - Patient discharged Performed By: #### L 100.0100, L500.4050 ####[facility] [address] [place], [address] GAP Normal 5-15 [facility] Comment on above: Result Comment: Canc elled via OM: Order cancelled - Patient discharged Performed By: #### L 100.0100, L500.4050 ####[facility] [address] [place], [address] GLU Normal 74-106 [facility] Comment on above: Result Comment: Canc elled via OM: Order cancelled - Patient discharged Performed By: #### L 100.0100, L500.4050 ####[facility] [address] [place], [address] Potassium Normal 3.5-5.1 [facility] Comment on above: Result Comment: Canc elled via OM: Order cancelled - Patient discharged Performed By: #### L 100.0100, L500.4050 ####[facility] [address] [place], [address] T BILI Normal 0.20-1.00 [facility] Comment on above: Result Comment: Canc elled via OM: Order cancelled - Patient discharged Performed By: #### L 100.0100, L500.4050 ####[facility] [address] [place], [address] T PROT Normal 6.4-8.2 [facility] Comment on above: Result Comment: Canc elled via OM: Order cancelled - Patient discharged Performed By: #### L 100.0100, L500.4050 ####[facility] [address] [place], [address] Comprehensive Metabolic Profil Normal 136-145 [facility] Comment on above: Result Comment: Canc elled via OM: Order cancelled - Patient discharged Performed By: #### L 100.0100, L500.4050 ####[facility] [address] [place], [address] CBC W/Diff, Automatedon 08-2 Absolute Neut Normal 2.0-7.7 [facility] Comment on above: Result Comment: Canc elled via OM: Order cancelled - Patient discharged Performed By: #### L 500.4050, L100.0100 ####[facility] [address] [place], [address] HCT Normal 37-47 [facility] Comment on above: Result Comment: Canc elled via OM: Order cancelled - Patient discharged Performed By: #### L 500.4050, L100.0100 ####[facility] [address] [place], [address] HGB Normal 12.0-15.0 [facility] Comment on above: Result Comment: Canc elled via OM: Order cancelled - Patient discharged Performed By: #### L 500.4050, L100.0100 ####[facility] [address] [place], [address] MCH Normal 27.0-32.0 [facility] Comment on above: Result Comment: Canc elled via OM: Order cancelled - Patient discharged Performed By: #### L 500.4050, L100.0100 ####[facility] [address] [place], [address] MCHC Normal 32-36 [facility] Comment on above: Result Comment: Canc elled via OM: Order cancelled - Patient discharged Performed By: #### L 500.4050, L100.0100 ####[facility] [address] [place], [address] MCV Normal 81-99 [facility] Comment on above: Result Comment: Canc elled via OM: Order cancelled - Patient discharged Performed By: #### L 500.4050, L100.0100 ####[facility] [address] [place], [address] NEUT% Normal 47-70 [facility] Comment on above: Result Comment: Canc elled via OM: Order cancelled - Patient discharged Performed By: #### L 500.4050, L100.0100 ####[facility] [address] [place], [address] PLT Normal 150-450 [facility] Comment on above: Result Comment: Canc elled via OM: Order cancelled - Patient discharged Performed By: #### L 500.4050, L100.0100 ####[facility] [address] [place], [address] RBC Normal 4.2-5.4 [facility] Comment on above: Result Comment: Canc elled via OM: Order cancelled - Patient discharged Performed By: #### L 500.4050, L100.0100 ####[facility] [address] [place], [address] RDW CV Normal 11.6-14.6 [facility] Comment on above: Result Comment: Canc elled via OM: Order cancelled - Patient discharged Performed By: #### L 500.4050, L100.0100 ####[facility] [address] [place], [address] RDW SD Normal 35.1-43.9 [facility] Comment on above: Result Comment: Canc elled via OM: Order cancelled - Patient discharged Performed By: #### L 500.4050, L100.0100 ####[facility] [address] [place], [address] WBC Normal 4.4-11.0 [facility] Comment on above: Result Comment: Canc elled via OM: Order cancelled - Patient discharged Performed By: #### L 500.4050, L100.0100 ####[facility] [address] [place], [address] Comprehensive Metabolic Prof ilon 06-19-2024 ALB Normal 3.2-5.0 [facility] Comment on above: Result Comment: Canc elled via OM: Order cancelled - Patient discharged Performed By: #### L 500.4050, L100.0100 ####[facility] [address] [place], [address] ALK P Normal 45-117 [facility] Comment on above: Result Comment: Canc elled via OM: Order cancelled - Patient discharged Performed By: #### L 500.4050, L100.0100 ####[facility] [address] [place], [address] ALT Normal 13-56 [facility] Comment on above: Result Comment: Canc elled via OM: Order cancelled - Patient discharged Performed By: #### L 500.4050, L100.0100 ####[facility] [address] [place], [address] AST Normal 15-37 [facility] Comment on above: Result Comment: Canc elled via OM: Order cancelled - Patient discharged Performed By: #### L 500.4050, L100.0100 ####[facility] [address] [place], [address] BUN Normal 7-18 [facility] Comment on above: Result Comment: Canc elled via OM: Order cancelled - Patient discharged Performed By: #### L 500.4050, L100.0100 ####[facility] [address] [place], [address] BUN/CRE Normal 10-20 [facility] Comment on above: Result Comment: Canc elled via OM: Order cancelled - Patient discharged Performed By: #### L 500.4050, L100.0100 ####[facility] [address] [place], [address] CA,Total Normal 8.5-10.1 [facility] Comment on above: Result Comment: Canc elled via OM: Order cancelled - Patient discharged Performed By: #### L 500.4050, L100.0100 ####[facility] [address] [place], [address] CL Normal 98-107 [facility] Comment on above: Result Comment: Canc elled via OM: Order cancelled - Patient discharged Performed By: #### L 500.4050, L100.0100 ####[facility] [address] [place], [address] CO2 Normal 21.0-32.0 [facility] Comment on above: Result Comment: Canc elled via OM: Order cancelled - Patient discharged Performed By: #### L 500.4050, L100.0100 ####[facility] [address] [place], [address] CREAT,SERUM Normal 0.55-1.02 [facility] Comment on above: Result Comment: Canc elled via OM: Order cancelled - Patient discharged Performed By: #### L 500.4050, L100.0100 ####[facility] [address] [place], [address] EST GFR Normal >60 [facility] Comment on above: Result Comment: Canc elled via OM: Order cancelled - Patient discharged Performed By: #### L 500.4050, L100.0100 ####[facility] [address] [place], [address] EST GFR - AA Normal >60 [facility] Comment on above: Result Comment: Canc elled via OM: Order cancelled - Patient discharged Performed By: #### L 500.4050, L100.0100 ####[facility] [address] [place], [address] GAP Normal 5-15 [facility] Comment on above: Result Comment: Canc elled via OM: Order cancelled - Patient discharged Performed By: #### L 500.4050, L100.0100 ####[facility] [address] [place], [address] GLU Normal 74-106 [facility] Comment on above: Result Comment: Canc elled via OM: Order cancelled - Patient discharged Performed By: #### L 500.4050, L100.0100 ####[facility] [address] [place], [address] Potassium Normal 3.5-5.1 [facility] Comment on above: Result Comment: Canc elled via OM: Order cancelled - Patient discharged Performed By: #### L 500.4050, L100.0100 ####[facility] [address] [place], [address] T BILI Normal 0.20-1.00 [facility] Comment on above: Result Comment: Canc elled via OM: Order cancelled - Patient discharged Performed By: #### L 500.4050, L100.0100 ####[facility] [address] [place], [address] T PROT Normal 6.4-8.2 [facility] Comment on above: Result Comment: Canc elled via OM: Order cancelled - Patient discharged Performed By: #### L 500.4050, L100.0100 ####[facility] [address] [place], [address] Comprehensive Metabolic Profil Normal 136-145 [facility] Comment on above: Result Comment: Canc elled via OM: Order cancelled - Patient discharged Performed By: #### L 500.4050, L100.0100 ####[facility] [address] [place], [address] Bedside Glucoseon 06-18-2024 FINGERSTICK GLU 128 mg/dL High 74-106 [facility] Comment on above: Result Comment: PANFILO GEMENT OF PATIENT CARE PER NURSING PROTOCOL Performed By: #### L 501.080 ####[facility] [address] [place], [address] FINGERSTICK GLU 119 mg/dL High 74-106 [facility] Comment on above: Result Comment: PANFILO GEMENT OF PATIENT CARE PER NURSING PROTOCOL Performed By: #### L 501.080 ####[facility] [address] [place], [address] CBC W/Diff, Automatedon 05-27 Absolute Lymph 0.92 X10 3/uL Normal 0.83-4.51 [facility] Comment on above: Performed By: #### L 501.5200, L500.4050, L100.0100 ####[facility] [address] [place], [address] Absolute Neut 1.9 X10 3/uL Low 2.0-7.7 [facility] Comment on above: Performed By: #### L 501.5200, L500.4050, L100.0100 ####[facility] [address] [place], [address] Basophils/100 WBC (Bld) 1.2 % High 0-1 [facility] Comment on above: Performed By: #### L 501.5200, L500.4050, L100.0100 ####[facility] [address] [place], [address] Eosinophils/100 WBC (Bld) 6.9 % High 0-5 [facility] Comment on above: Performed By: #### L 501.5200, L500.4050, L100.0100 ####[facility] [address] [place], [address] Erythrocyte distribution width (RBC) [Ratio] 12.3 % Normal 11.6-14.6 [facility] Comment on above: Performed By: #### L 501.5200, L500.4050, L100.0100 ####[facility] [address] [place], [address] Hematocrit (Bld) [Volume fraction] 35.2 % Low 37-47 [facility] Comment on above: Performed By: #### L 501.5200, L500.4050, L100.0100 ####[facility] [address] [place], [address] Hemoglobin (Bld) [Mass/Vol] 11.8 g/dL Low 12.0-15.0 [facility] Comment on above: Performed By: #### L 501.5200, L500.4050, L100.0100 ####[facility] [address] [place], [address] IG% 0.000 Normal 0.0-0.9 [facility] Comment on above: Result Comment: IG% - Immature Granulocytes (promyelocytes, myelocytes andmetamyelocytes) > 1% indicates that a LEFT SHIFT is Present. Performed By: #### L 501.5200, L500.4050, L100.0100 ####[facility] [address] [place], [address] Lymphocytes/100 WBC (Bld) 26.5 % Normal 19-41 [facility] Comment on above: Performed By: #### L 501.5200, L500.4050, L100.0100 ####[facility] [address] [place], [address] MCH (RBC) [Entitic mass] 32.3 pg High 27.0-32.0 [facility] Comment on above: Performed By: #### L 501.5200, L500.4050, L100.0100 ####[facility] [address] [place], [address] MCHC (RBC) [Mass/Vol] 33.5 g/dL Normal 32-36 [facility] Comment on above: Performed By: #### L 501.5200, L500.4050, L100.0100 ####[facility] [address] [place], [address] MCV (RBC) [Entitic vol] 96.4 fL Normal 81-99 [facility] Comment on above: Performed By: #### L 501.5200, L500.4050, L100.0100 ####[facility] [address] [place], [address] Monocytes/100 WBC (Bld) 11.2 % High 0-10 [facility] Comment on above: Performed By: #### L 501.5200, L500.4050, L100.0100 ####[facility] [address] [place], [address] Neutrophils/100 WBC (Bld) 54.2 % Normal 47-70 [facility] Comment on above: Performed By: #### L 501.5200, L500.4050, L100.0100 ####[facility] [address] [place], [address] Nucleated RBC (Bld) [#/Vol] 0 10*3/uL Normal 0-5 [facility] Comment on above: Performed By: #### L 501.5200, L500.4050, L100.0100 ####[facility] [address] [place], [address] Platelet mean volume (Bld) [Entitic vol] 9.8 fL Normal 6.2-12.0 [facility] Comment on above: Performed By: #### L 501.5200, L500.4050, L100.0100 ####[facility] [address] [place], [address] Platelets (Bld) [#/Vol] 129 10*3/uL Low 150-450 [facility] Comment on above: Performed By: #### L 501.5200, L500.4050, L100.0100 ####[facility] [address] [place], [address] RBC (Bld) [#/Vol] 3.65 10*6/uL Low 4.2-5.4 [facility] Comment on above: Performed By: #### L 501.5200, L500.4050, L100.0100 ####[facility] [address] [place], [address] RDW SD 43.8 fl Normal 35.1-43.9 [facility] Comment on above: Performed By: #### L 501.5200, L500.4050, L100.0100 ####[facility] [address] [place], [address] WBC (Bld) [#/Vol] 3.5 10*3/uL Low 4.4-11.0 [facility] Comment on above: Performed By: #### L 501.5200, L500.4050, L100.0100 ####[facility] [address] [place], [address] Comprehensive Metabolic Prof [facility] 06-18-2024 Albumin [Mass/Vol] 2.9 g/dL Low 3.2-5.0 [facility] Comment on above: Performed By: #### L 501.5200, L500.4050, L100.0100 ####[facility] [address] [place], [address] Albumin/Globulin [Mass ratio] 0.8 {ratio} Low 0.9-2.4 [facility] Comment on above: Performed By: #### L 501.5200, L500.4050, L100.0100 ####[facility] [address] [place], [address] ALK P 89 U/L Normal 45-117 [facility] Comment on above: Performed By: #### L 501.5200, L500.4050, L100.0100 ####[facility] [address] [place], [address] ALT [Catalytic activity/Vol] 16 U/L Normal 13-56 [facility] Comment on above: Performed By: #### L 501.5200, L500.4050, L100.0100 ####[facility] [address] [place], [address] AST [Catalytic activity/Vol] 19 U/L Normal 15-37 [facility] Comment on above: Performed By: #### L 501.5200, L500.4050, L100.0100 ####[facility] [address] [place], [address] Bilirubin [Mass/Vol] 0.60 mg/dL Normal 0.20-1.00 [facility] Comment on above: Result Comment: For patients on eltrombopag therapy, use of Dimension Peterman TBIL is not recommended. Performed By: #### L 501.5200, L500.4050, L100.0100 ####[facility] [address] [place], [address] BUN/CRE 15.0 RATIO Normal 10-20 [facility] Comment on above: Performed By: #### L 501.5200, L500.4050, L100.0100 ####[facility] [address] [place], [address] CA,Total 9.2 mg/dL Normal 8.5-10.1 [facility] Comment on above: Performed By: #### L 501.5200, L500.4050, L100.0100 ####[facility] [address] [place], [address] Chloride [Moles/Vol] 106 mmol/L Normal 98-107 [facility] Comment on above: Performed By: #### L 501.5200, L500.4050, L100.0100 ####[facility] [address] [place], [address] CO2 [Moles/Vol] 26.0 mmol/L Normal 21.0-32.0 [facility] Comment on above: Performed By: #### L 501.5200, L500.4050, L100.0100 ####[facility] [address] [place], [address] Creatinine [Mass/Vol] 0.80 mg/dL Normal 0.55-1.02 [facility] Comment on above: Result Comment: The validity of the calculated GFR GFRAA in patients over70 years has not been determined. Clinical correlation isessential. Performed By: #### L 501.5200, L500.4050, L100.0100 ####[facility] [address] [place], [address] ECRCL 66.34 ml/min Normal [facility] Comment on above: Performed By: #### L 501.5200, L500.4050, L100.0100 ####[facility] [address] [place], [address] EST GFR - AA 90 mL/min Normal >60 [facility] Comment on above: Result Comment: Afri can Colombian GFR Calc Performed By: #### L 501.5200, L500.4050, L100.0100 ####[facility] [address] [place], [address] GAP 7 Normal 5-15 [facility] Comment on above: Performed By: #### L 501.5200, L500.4050, L100.0100 ####[facility] [address] [place], [address] GFR/1.73 sq M.predicted among non-blacks MDRD (S/P/Bld) [Vol rate/Area] 74 mL/min/{1.73_m2} Normal >60 [facility] Comment on above: Result Comment: Non- GFR Calc Performed By: #### L 501.5200, L500.4050, L100.0100 ####[facility] [address] [place], [address] Globulin (S) [Mass/Vol] 3.5 g/dL Normal 2.2-4.2 [facility] Comment on above: Performed By: #### L 501.5200, L500.4050, L100.0100 ####[facility] [address] [place], [address] Glucose [Mass/Vol] 126 mg/dL High 74-106 [facility] Comment on above: Result Comment: Fast ing Glucose result greater than or equal to 126 mg/dLsuggests DIABETES MELLITUS per A.D.A. criteria. Performed By: #### L 501.5200, L500.4050, L100.0100 ####[facility] [address] [place], [address] Potassium [Moles/Vol] 3.6 mmol/L Normal 3.5-5.1 [facility] Comment on above: Performed By: #### L 501.5200, L500.4050, L100.0100 ####[facility] [address] [place], [address] Sodium [Moles/Vol] 139 mmol/L Normal 136-145 [facility] Comment on above: Performed By: #### L 501.5200, L500.4050, L100.0100 ####[facility] [address] [place], [address] T PROT 6.4 g/dL Normal 6.4-8.2 [facility] Comment on above: Performed By: #### L 501.5200, L500.4050, L100.0100 ####[facility] [address] [place], [address] Urea nitrogen [Mass/Vol] 12 mg/dL Normal 7-18 [facility] Comment on above: Performed By: #### L 501.5200, L500.4050, L100.0100 ####[facility] [address] [place], [address] Discharge Instructionon -2 Discharge Instruction Normal [facility] Magnesiumon 06-18-2024 Magnesium [Mass/Vol] 1.6 mg/dL Normal 1.6-2.6 [facility] Comment on above: Performed By: #### L 501.5200, L500.4050, L100.0100 ####[facility] [address] [place], [address] Phosphoruson 06-18-2024 Phosphate [Mass/Vol] 3.8 mg/dL Normal 2.5-4.9 [facility] Comment on above: Performed By: #### L 501.2300 ####[facility] [address] [place], [address] Bedside Glucoseon 06-17-2024 FINGERSTICK GLU 120 mg/dL High 74-106 [facility] Comment on above: Result Comment: PANFILO CARTER OF PATIENT CARE PER NURSING PROTOCOL Performed By: #### L 501.080 ####[facility] [address] [place], [address] FINGERSTICK GLU 161 mg/dL High 74-106 [facility] Comment on above: Result Comment: PANFILO GEMENT OF PATIENT CARE PER NURSING PROTOCOL Performed By: #### L 501.080 ####[facility] [address] [place], [address] FINGERSTICK GLU 162 mg/dL High 74-106 [facility] Comment on above: Result Comment: PANFILO GEMENT OF PATIENT CARE PER NURSING PROTOCOL Performed By: #### L 501.080 ####[facility] [address] [place], [address] FINGERSTICK GLU 116 mg/dL High 74-106 [facility] Comment on above: Result Comment: PANFILO GEMENT OF PATIENT CARE PER NURSING PROTOCOL Performed By: #### L 501.080 ####[facility] [address] [place], [address] CBC W/Diff, Automatedon 05-27 Absolute Lymph 1.02 X10 3/uL Normal 0.83-4.51 [facility] Comment on above: Performed By: #### L 500.4050, L501.2300, L300.3900, L501.5200, L100.0100 ####[facility] [address] [place], [address] Absolute Neut 2.8 X10 3/uL Normal 2.0-7.7 [facility] Comment on above: Performed By: #### L 500.4050, L501.2300, L300.3900, L501.5200, L100.0100 ####[facility] [address] [place], [address] Basophils/100 WBC (Bld) 0.9 % Normal 0-1 [facility] Comment on above: Performed By: #### L 500.4050, L501.2300, L300.3900, L501.5200, L100.0100 ####[facility] [address] [place], [address] Eosinophils/100 WBC (Bld) 5.2 % High 0-5 [facility] Comment on above: Performed By: #### L 500.4050, L501.2300, L300.3900, L501.5200, L100.0100 ####[facility] [address] [place], [address] Erythrocyte distribution width (RBC) [Ratio] 12.2 % Normal 11.6-14.6 [facility] Comment on above: Performed By: #### L 500.4050, L501.2300, L300.3900, L501.5200, L100.0100 ####[facility] [address] [place], [address] Hematocrit (Bld) [Volume fraction] 36.4 % Low 37-47 [facility] Comment on above: Performed By: #### L 500.4050, L501.2300, L300.3900, L501.5200, L100.0100 ####[facility] [address] [place], [address] Hemoglobin (Bld) [Mass/Vol] 12.1 g/dL Normal 12.0-15.0 [facility] Comment on above: Performed By: #### L 500.4050, L501.2300, L300.3900, L501.5200, L100.0100 ####[facility] [address] [place], [address] IG% 0.200 Normal 0.0-0.9 [facility] Comment on above: Result Comment: IG% - Immature Granulocytes (promyelocytes, myelocytes andmetamyelocytes) > 1% indicates that a LEFT SHIFT is Present. Performed By: #### L 500.4050, L501.2300, L300.3900, L501.5200, L100.0100 ####[facility] [address] [place], [address] Lymphocytes/100 WBC (Bld) 22.9 % Normal 19-41 [facility] Comment on above: Performed By: #### L 500.4050, L501.2300, L300.3900, L501.5200, L100.0100 ####[facility] [address] [place], [address] MCH (RBC) [Entitic mass] 31.9 pg Normal 27.0-32.0 [facility] Comment on above: Performed By: #### L 500.4050, L501.2300, L300.3900, L501.5200, L100.0100 ####[facility] [address] [place], [address] MCHC (RBC) [Mass/Vol] 33.2 g/dL Normal 32-36 [facility] Comment on above: Performed By: #### L 500.4050, L501.2300, L300.3900, L501.5200, L100.0100 ####[facility] [address] [place], [address] MCV (RBC) [Entitic vol] 96.0 fL Normal 81-99 [facility] Comment on above: Performed By: #### L 500.4050, L501.2300, L300.3900, L501.5200, L100.0100 ####[facility] [address] [place], [address] Monocytes/100 WBC (Bld) 9.0 % Normal 0-10 [facility] Comment on above: Performed By: #### L 500.4050, L501.2300, L300.3900, L501.5200, L100.0100 ####[facility] [address] [place], [address] Neutrophils/100 WBC (Bld) 61.8 % Normal 47-70 [facility] Comment on above: Performed By: #### L 500.4050, L501.2300, L300.3900, L501.5200, L100.0100 ####[facility] [address] [place], [address] Nucleated RBC (Bld) [#/Vol] 0 10*3/uL Normal 0-5 [facility] Comment on above: Performed By: #### L 500.4050, L501.2300, L300.3900, L501.5200, L100.0100 ####[facility] [address] [place], [address] Platelet mean volume (Bld) [Entitic vol] 9.7 fL Normal 6.2-12.0 [facility] Comment on above: Performed By: #### L 500.4050, L501.2300, L300.3900, L501.5200, L100.0100 ####[facility] [address] [place], [address] Platelets (Bld) [#/Vol] 130 10*3/uL Low 150-450 [facility] Comment on above: Performed By: #### L 500.4050, L501.2300, L300.3900, L501.5200, L100.0100 ####[facility] [address] [place], [address] RBC (Bld) [#/Vol] 3.79 10*6/uL Low 4.2-5.4 [facility] Comment on above: Performed By: #### L 500.4050, L501.2300, L300.3900, L501.5200, L100.0100 ####[facility] [address] [place], [address] RDW SD 42.7 fl Normal 35.1-43.9 [facility] Comment on above: Performed By: #### L 500.4050, L501.2300, L300.3900, L501.5200, L100.0100 ####[facility] [address] [place], [address] WBC (Bld) [#/Vol] 4.5 10*3/uL Normal 4.4-11.0 [facility] Comment on above: Performed By: #### L 500.4050, L501.2300, L300.3900, L501.5200, L100.0100 ####[facility] [address] [place], [address] Comprehensive Metabolic [facility] 06-17-2024 Albumin [Mass/Vol] 3.0 g/dL Low 3.2-5.0 [facility] Comment on above: Performed By: #### L 500.4050, L501.2300, L300.3900, L501.5200, L100.0100 ####[facility] [address] [place], [address] Albumin/Globulin [Mass ratio] 0.8 {ratio} Low 0.9-2.4 [facility] Comment on above: Performed By: #### L 500.4050, L501.2300, L300.3900, L501.5200, L100.0100 ####[facility] [address] [place], [address] ALK P 90 U/L Normal 45-117 [facility] Comment on above: Performed By: #### L 500.4050, L501.2300, L300.3900, L501.5200, L100.0100 ####[facility] [address] [place], [address] ALT [Catalytic activity/Vol] 13 U/L Normal 13-56 [facility] Comment on above: Performed By: #### L 500.4050, L501.2300, L300.3900, L501.5200, L100.0100 ####[facility] [address] [place], [address] AST [Catalytic activity/Vol] 21 U/L Normal 15-37 [facility] Comment on above: Performed By: #### L 500.4050, L501.2300, L300.3900, L501.5200, L100.0100 ####[facility] [address] [place], [address] Bilirubin [Mass/Vol] 0.90 mg/dL Normal 0.20-1.00 [facility] Comment on above: Result Comment: For patients on eltrombopag therapy, use of Dimension Peterman TBIL is not recommended. Performed By: #### L 500.4050, L501.2300, L300.3900, L501.5200, L100.0100 ####[facility] [address] [place], [address] BUN/CRE 14.7 RATIO Normal 10-20 [facility] Comment on above: Performed By: #### L 500.4050, L501.2300, L300.3900, L501.5200, L100.0100 ####[facility] [address] [place], [address] CA,Total 8.8 mg/dL Normal 8.5-10.1 [facility] Comment on above: Performed By: #### L 500.4050, L501.2300, L300.3900, L501.5200, L100.0100 ####[facility] [address] [place], [address] Chloride [Moles/Vol] 105 mmol/L Normal 98-107 [facility] Comment on above: Performed By: #### L 500.4050, L501.2300, L300.3900, L501.5200, L100.0100 ####[facility] [address] [place], [address] CO2 [Moles/Vol] 25.0 mmol/L Normal 21.0-32.0 [facility] Comment on above: Performed By: #### L 500.4050, L501.2300, L300.3900, L501.5200, L100.0100 ####[facility] [address] [place], [address] Creatinine [Mass/Vol] 0.75 mg/dL Normal 0.55-1.02 [facility] Comment on above: Result Comment: The validity of the calculated GFR GFRAA in patients over70 years has not been determined. Clinical correlation isessential. Performed By: #### L 500.4050, L501.2300, L300.3900, L501.5200, L100.0100 ####[facility] [address] [place], [address] ECRCL 66.34 ml/min Normal [facility] Comment on above: Performed By: #### L 500.4050, L501.2300, L300.3900, L501.5200, L100.0100 ####[facility] [address] [place], [address] EST GFR - AA 96 mL/min Normal >60 [facility] Comment on above: Result Comment: Afri can Colombian GFR Calc Performed By: #### L 500.4050, L501.2300, L300.3900, L501.5200, L100.0100 ####[facility] [address] [place], [address] GAP 10 Normal 5-15 [facility] Comment on above: Performed By: #### L 500.4050, L501.2300, L300.3900, L501.5200, L100.0100 ####[facility] [address] [place], [address] GFR/1.73 sq M.predicted among non-blacks MDRD (S/P/Bld) [Vol rate/Area] 80 mL/min/{1.73_m2} Normal >60 [facility] Comment on above: Result Comment: Non- GFR Calc Performed By: #### L 500.4050, L501.2300, L300.3900, L501.5200, L100.0100 ####[facility] [address] [place], [address] Globulin (S) [Mass/Vol] 3.7 g/dL Normal 2.2-4.2 [facility] Comment on above: Performed By: #### L 500.4050, L501.2300, L300.3900, L501.5200, L100.0100 ####[facility] [address] [place], [address] Glucose [Mass/Vol] 121 mg/dL High 74-106 [facility] Comment on above: Result Comment: Fast ing Glucose result from 100 to 125 mg/dLsuggests IMPAIRED HOMEOSTASIS per A.D.A. criteria. Performed By: #### L 500.4050, L501.2300, L300.3900, L501.5200, L100.0100 ####[facility] [address] [place], [address] Potassium [Moles/Vol] 3.6 mmol/L Normal 3.5-5.1 [facility] Comment on above: Performed By: #### L 500.4050, L501.2300, L300.3900, L501.5200, L100.0100 ####[facility] [address] [place], [address] Sodium [Moles/Vol] 140 mmol/L Normal 136-145 [facility] Comment on above: Performed By: #### L 500.4050, L501.2300, L300.3900, L501.5200, L100.0100 ####[facility] [address] [place], [address] T PROT 6.7 g/dL Normal 6.4-8.2 [facility] Comment on above: Performed By: #### L 500.4050, L501.2300, L300.3900, L501.5200, L100.0100 ####[facility] [address] [place], [address] Urea nitrogen [Mass/Vol] 11 mg/dL Normal 7-18 [facility] Comment on above: Performed By: #### L 500.4050, L501.2300, L300.3900, L501.5200, L100.0100 ####[facility] [address] [place], [address] Magnesiumon 06-17-2024 Magnesium [Mass/Vol] 1.4 mg/dL Low 1.6-2.6 [facility] Comment on above: Performed By: #### L 500.4050, L501.2300, L300.3900, L501.5200, L100.0100 ####[facility] [address] [place], [address] Phosphoruson 06-17-2024 Phosphate [Mass/Vol] 2.4 mg/dL Low 2.5-4.9 [facility] Comment on above: Performed By: #### L 500.4050, L501.2300, L300.3900, L501.5200, L100.0100 ####[facility] [address] [place], [address] Prothrombin Time w/INRon INR Coag (PPP) [Relative time] 1.4 {INR} Normal [facility] Comment on above: Performed By: #### L 500.4050, L501.2300, L300.3900, L501.5200, L100.0100 ####[facility] [address] [place], [address] PT Coag (PPP) [Time] 17.3 s High 11.7-14.9 [facility] Comment on above: Performed By: #### L 500.4050, L501.2300, L300.3900, L501.5200, L100.0100 ####[facility] [address] [place], [address] Urine Cultureon 06-17-2024 URC Culture exhibits no growth. Normal [facility] Comment on above: Performed By: #### M 100.2200 ####[facility] [address] [place], [address] BNP,B-Type NATRIURETIC PEPTI Tay 06-16-2024 Natriuretic peptide B (Bld) [Mass/Vol] 94.9 pg/mL Normal 0-100 [facility] Comment on above: Performed By: #### L 503.6620, L100.0100, L300.3900, L300.4310, L501.2450, L501.9520, L500.4050, L501.5425, L500.2500 ####[facility] [address] [place], [address] Basic Metabolic Profile (BMP )on 06-16-2024 BUN/CRE 14.1 RATIO Normal 10-20 [facility] Comment on above: Order Comment: 1Y Performed By: #### L 503.6620, L100.0100, L300.3900, L300.4310, L501.2450, L501.9520, L500.4050, L501.5425, L500.2500 ####[facility] [address] [place], [address] CA,Total 9.5 mg/dL Normal 8.5-10.1 [facility] Comment on above: Order Comment: 1Y Performed By: #### L 503.6620, L100.0100, L300.3900, L300.4310, L501.2450, L501.9520, L500.4050, L501.5425, L500.2500 ####[facility] [address] [place], [address] Chloride [Moles/Vol] 101 mmol/L Normal 98-107 [facility] Comment on above: Order Comment: 1Y Performed By: #### L 503.6620, L100.0100, L300.3900, L300.4310, L501.2450, L501.9520, L500.4050, L501.5425, L500.2500 ####[facility] [address] [place], [address] CO2 [Moles/Vol] 27.0 mmol/L Normal 21.0-32.0 [facility] Comment on above: Order Comment: 1Y Performed By: #### L 503.6620, L100.0100, L300.3900, L300.4310, L501.2450, L501.9520, L500.4050, L501.5425, L500.2500 ####[facility] [address] [place], [address] Creatinine [Mass/Vol] 0.78 mg/dL Normal 0.55-1.02 [facility] Comment on above: Order Comment: 1Y Result Comment: The validity of the calculated GFR GFRAA in patients over70 years has not been determined. Clinical correlation isessential. Performed By: #### L 503.6620, L100.0100, L300.3900, L300.4310, L501.2450, L501.9520, L500.4050, L501.5425, L500.2500 ####[facility] [address] [place], [address] EST GFR - AA 92 mL/min Normal >60 [facility] Comment on above: Order Comment: 1Y Result Comment: Afri can Colombian GFR Calc Performed By: #### L 503.6620, L100.0100, L300.3900, L300.4310, L501.2450, L501.9520, L500.4050, L501.5425, L500.2500 ####[facility] [address] [place], [address] GAP 10 Normal 5-15 [facility] Comment on above: Order Comment: 1Y Performed By: #### L 503.6620, L100.0100, L300.3900, L300.4310, L501.2450, L501.9520, L500.4050, L501.5425, L500.2500 ####[facility] [address] [place], [address] GFR/1.73 sq M.predicted among non-blacks MDRD (S/P/Bld) [Vol rate/Area] 76 mL/min/{1.73_m2} Normal >60 [facility] Comment on above: Order Comment: 1Y Result Comment: Non- GFR Calc Performed By: #### L 503.6620, L100.0100, L300.3900, L300.4310, L501.2450, L501.9520, L500.4050, L501.5425, L500.2500 ####[facility] [address] [place], [place], [address] Glucose [Mass/Vol] 119 mg/dL High 74-106 [facility] Comment on above: Order Comment: 1Y Result Comment: Fast ing Glucose result from 100 to 125 mg/dLsuggests IMPAIRED HOMEOSTASIS per A.D.A. criteria. Performed By: #### L 503.6620, L100.0100, L300.3900, L300.4310, L501.2450, L501.9520, L500.4050, L501.5425, L500.2500 ####[facility] [address] [place], [place], [phone]) Potassium [Moles/Vol] 3.7 mmol/L Normal 3.5-5.1 [facility] Comment on above: Order Comment: 1Y Performed By: #### L 503.6620, L100.0100, L300.3900, L300.4310, L501.2450, L501.9520, L500.4050, L501.5425, L500.2500 ####[facility] [address] [place], [address] Sodium [Moles/Vol] 138 mmol/L Normal 136-145 [facility] Comment on above: Order Comment: 1Y Performed By: #### L 503.6620, L100.0100, L300.3900, L300.4310, L501.2450, L501.9520, L500.4050, L501.5425, L500.2500 ####[facility] [address] [place], [place], [address] Urea nitrogen [Mass/Vol] 11 mg/dL Normal 7-18 [facility] Comment on above: Order Comment: 1Y Performed By: #### L 503.6620, L100.0100, L300.3900, L300.4310, L501.2450, L501.9520, L500.4050, L501.5425, L500.2500 ####[facility] [address] [place], [place], [id number] Brain/Head without Contrasto n 06-16-2024 Brain/Head without Contrast Normal [facility] CBC W/Diff, Automatedon 05-27 Absolute Lymph 1.27 X10 3/uL Normal 0.83-4.51 [facility] Comment on above: Performed By: #### L 503.6620, L100.0100, L300.3900, L300.4310, L501.2450, L501.9520, L500.4050, L501.5425, L500.2500 ####[facility] [address] [place], [place], [phone](173) Absolute Neut 3.6 X10 3/uL Normal 2.0-7.7 [facility] Comment on above: Performed By: #### L 503.6620, L100.0100, L300.3900, L300.4310, L501.2450, L501.9520, L500.4050, L501.5425, L500.2500 ####[facility] [address] [place], [address] Basophils/100 WBC (Bld) 0.7 % Normal 0-1 [facility] Comment on above: Performed By: #### L 503.6620, L100.0100, L300.3900, L300.4310, L501.2450, L501.9520, L500.4050, L501.5425, L500.2500 ####[facility] [address] [place], [place], [phone]) Eosinophils/100 WBC (Bld) 2.8 % Normal 0-5 [facility] Comment on above: Performed By: #### L 503.6620, L100.0100, L300.3900, L300.4310, L501.2450, L501.9520, L500.4050, L501.5425, L500.2500 ####[facility] [address] [place], [place], [phone]) Erythrocyte distribution width (RBC) [Ratio] 12.3 % Normal 11.6-14.6 [facility] Comment on above: Performed By: #### L 503.6620, L100.0100, L300.3900, L300.4310, L501.2450, L501.9520, L500.4050, L501.5425, L500.2500 ####[facility] [address] [place], [address] Hematocrit (Bld) [Volume fraction] 40.3 % Normal 37-47 [facility] Comment on above: Performed By: #### L 503.6620, L100.0100, L300.3900, L300.4310, L501.2450, L501.9520, L500.4050, L501.5425, L500.2500 ####[facility] [address] [facility], [address] Hemoglobin (Bld) [Mass/Vol] 13.1 g/dL Normal 12.0-15.0 [facility] Comment on above: Performed By: #### L 503.6620, L100.0100, L300.3900, L300.4310, L501.2450, L501.9520, L500.4050, L501.5425, L500.2500 ####[facility] [address] [facility], [address] IG% 0.200 Normal 0.0-0.9 [facility] Comment on above: Result Comment: IG% - Immature Granulocytes (promyelocytes, myelocytes andmetamyelocytes) > 1% indicates that a LEFT SHIFT is Present. Performed By: #### L 503.6620, L100.0100, L300.3900, L300.4310, L501.2450, L501.9520, L500.4050, L501.5425, L500.2500 ####[facility] [address] [facility] [place], [address] Lymphocytes/100 WBC (Bld) 23.4 % Normal 19-41 [facility] Comment on above: Performed By: #### L 503.6620, L100.0100, L300.3900, L300.4310, L501.2450, L501.9520, L500.4050, L501.5425, L500.2500 ####[facility] [address] [facility] [place], [address] MCH (RBC) [Entitic mass] 31.3 pg Normal 27.0-32.0 [facility] Comment on above: Performed By: #### L 503.6620, L100.0100, L300.3900, L300.4310, L501.2450, L501.9520, L500.4050, L501.5425, L500.2500 ####[facility] [address] [place], [address] MCHC (RBC) [Mass/Vol] 32.5 g/dL Normal 32-36 [facility] Comment on above: Performed By: #### L 503.6620, L100.0100, L300.3900, L300.4310, L501.2450, L501.9520, L500.4050, L501.5425, L500.2500 ####[facility] [address] [place], [address] MCV (RBC) [Entitic vol] 96.4 fL Normal 81-99 [facility] Comment on above: Performed By: #### L 503.6620, L100.0100, L300.3900, L300.4310, L501.2450, L501.9520, L500.4050, L501.5425, L500.2500 ####[facility] [address] [place], [address] Monocytes/100 WBC (Bld) 7.0 % Normal 0-10 [facility] Comment on above: Performed By: #### L 503.6620, L100.0100, L300.3900, L300.4310, L501.2450, L501.9520, L500.4050, L501.5425, L500.2500 ####[facility] [address] [place], [address] Neutrophils/100 WBC (Bld) 65.9 % Normal 47-70 [facility] Comment on above: Performed By: #### L 503.6620, L100.0100, L300.3900, L300.4310, L501.2450, L501.9520, L500.4050, L501.5425, L500.2500 ####[facility] [address] [place], [address] Nucleated RBC (Bld) [#/Vol] 0 10*3/uL Normal 0-5 [facility] Comment on above: Performed By: #### L 503.6620, L100.0100, L300.3900, L300.4310, L501.2450, L501.9520, L500.4050, L501.5425, L500.2500 ####[facility] [address] [place], [address] Platelet mean volume (Bld) [Entitic vol] 9.6 fL Normal 6.2-12.0 [facility] Comment on above: Performed By: #### L 503.6620, L100.0100, L300.3900, L300.4310, L501.2450, L501.9520, L500.4050, L501.5425, L500.2500 ####[facility] [address] [place], [address] Platelets (Bld) [#/Vol] 157 10*3/uL Normal 150-450 [facility] Comment on above: Performed By: #### L 503.6620, L100.0100, L300.3900, L300.4310, L501.2450, L501.9520, L500.4050, L501.5425, L500.2500 ####[facility] [address] [place], [address] RBC (Bld) [#/Vol] 4.18 10*6/uL Low 4.2-5.4 [facility] Comment on above: Performed By: #### L 503.6620, L100.0100, L300.3900, L300.4310, L501.2450, L501.9520, L500.4050, L501.5425, L500.2500 ####[facility] [address] [place], [address] RDW SD 43.8 fl Normal 35.1-43.9 [facility] Comment on above: Performed By: #### L 503.6620, L100.0100, L300.3900, L300.4310, L501.2450, L501.9520, L500.4050, L501.5425, L500.2500 ####[facility] [address] [place], [address] WBC (Bld) [#/Vol] 5.4 10*3/uL Normal 4.4-11.0 [facility] Comment on above: Performed By: #### L 503.6620, L100.0100, L300.3900, L300.4310, L501.2450, L501.9520, L500.4050, L501.5425, L500.2500 ####[facility] [address] [place], [address] Absolute Neut Normal 2.0-7.7 [facility] Comment on above: Result Comment: DUPL ICATE ORDER RAN UNDER H262 Performed By: #### L 500.4050, L100.0100 ####[facility] [address] [place], [address] HCT Normal 37-47 [facility] Comment on above: Result Comment: DUPL ICATE ORDER RAN UNDER H262 Performed By: #### L 500.4050, L100.0100 ####[facility] [address] [place], [address] HGB Normal 12.0-15.0 [facility] Comment on above: Result Comment: DUPL ICATE ORDER RAN UNDER H262 Performed By: #### L 500.4050, L100.0100 ####[facility] [address] [place], [address] MCH Normal 27.0-32.0 [facility] Comment on above: Result Comment: DUPL ICATE ORDER RAN UNDER H262 Performed By: #### L 500.4050, L100.0100 ####[facility] [address] [place], [address] MCHC Normal 32-36 [facility] Comment on above: Result Comment: DUPL ICATE ORDER RAN UNDER H262 Performed By: #### L 500.4050, L100.0100 ####[facility] [address] [place], [address] MCV Normal 81-99 [facility] Comment on above: Result Comment: DUPL ICATE ORDER RAN UNDER H262 Performed By: #### L 500.4050, L100.0100 ####[facility] [address] [place], [address] NEUT% Normal 47-70 [facility] Comment on above: Result Comment: DUPL ICATE ORDER RAN UNDER H262 Performed By: #### L 500.4050, L100.0100 ####[facility] [address] [place], [address] PLT Normal 150-450 [facility] Comment on above: Result Comment: DUPL ICATE ORDER RAN UNDER H262 Performed By: #### L 500.4050, L100.0100 ####[facility] [address] [place], [address] RBC Normal 4.2-5.4 [facility] Comment on above: Result Comment: DUPL ICATE ORDER RAN UNDER H262 Performed By: #### L 500.4050, L100.0100 ####[facility] [address] [place], [address] RDW CV Normal 11.6-14.6 [facility] Comment on above: Result Comment: DUPL ICATE ORDER RAN UNDER H262 Performed By: #### L 500.4050, L100.0100 ####[facility] [address] [place], [address] RDW SD Normal 35.1-43.9 [facility] Comment on above: Result Comment: DUPL ICATE ORDER RAN UNDER H262 Performed By: #### L 500.4050, L100.0100 ####[facility] [address] [place], [address] WBC Normal 4.4-11.0 [facility] Comment on above: Result Comment: DUPL ICATE ORDER RAN UNDER H262 Performed By: #### L 500.4050, L100.0100 ####[facility] [address] [place], [address] Chest PA and Lateralon 06-16 Chest PA and Lateral Normal [facility] Comprehensive Metabolic Prof ilon 06-16-2024 Albumin [Mass/Vol] 3.6 g/dL Normal 3.2-5.0 [facility] Comment on above: Order Comment: DR.BE SHIN ORDERED CMP LIPASE @1712 UNDER C345, ADDED TO THISSPECIMEN [id number] Performed By: #### L 503.6620, L100.0100, L300.3900, L300.4310, L501.2450, L501.9520, L500.4050, L501.5425, L500.2500 ####[facility] [address] [place], [address] Albumin/Globulin [Mass ratio] 0.8 {ratio} Low 0.9-2.4 [facility] Comment on above: Order Comment: DR.BE SHIN ORDERED CMP LIPASE @1712 UNDER C345, ADDED TO THISSPECIMEN [id number] Performed By: #### L 503.6620, L100.0100, L300.3900, L300.4310, L501.2450, L501.9520, L500.4050, L501.5425, L500.2500 ####[facility] [address] [place], [address] ALK P 104 U/L Normal 45-117 [facility] Comment on above: Order Comment: DR.BE SHIN ORDERED CMP LIPASE @1712 UNDER C345, ADDED TO THISSPECIMEN [id number] Performed By: #### L 503.6620, L100.0100, L300.3900, L300.4310, L501.2450, L501.9520, L500.4050, L501.5425, L500.2500 ####[facility] [address] [place], [address] ALT [Catalytic activity/Vol] 18 U/L Normal 13-56 [facility] Comment on above: Order Comment: DR.BE SHIN ORDERED CMP LIPASE @1712 UNDER C345, ADDED TO THISSPECIMEN [id number] Performed By: #### L 503.6620, L100.0100, L300.3900, L300.4310, L501.2450, L501.9520, L500.4050, L501.5425, L500.2500 ####[facility] [address] [place], [address] AST [Catalytic activity/Vol] 26 U/L Normal 15-37 [facility] [facility] Comment on above: Order Comment: DR.BE SHIN ORDERED CMP LIPASE @1712 UNDER C345, ADDED TO THISSPECIMEN [id number] Performed By: #### L 503.6620, L100.0100, L300.3900, L300.4310, L501.2450, L501.9520, L500.4050, L501.5425, L500.2500 ####[facility] [address] [place], [address] Bilirubin [Mass/Vol] 1.40 mg/dL High 0.20-1.00 [facility] Comment on above: Order Comment: DR.BE SHIN ORDERED CMP LIPASE @1712 UNDER C345, ADDED TO THISSPECIMEN [id number] Result Comment: For patients on eltrombopag therapy, use of Dimension Peterman TBIL is not recommended. Performed By: #### L 503.6620, L100.0100, L300.3900, L300.4310, L501.2450, L501.9520, L500.4050, L501.5425, L500.2500 ####[facility] [address] [place], [address] Globulin (S) [Mass/Vol] 4.3 g/dL High 2.2-4.2 [facility] Comment on above: Order Comment: DR.BE SHIN ORDERED CMP LIPASE @1712 UNDER C345, ADDED TO THISSPECIMEN [id number] Performed By: #### L 503.6620, L100.0100, L300.3900, L300.4310, L501.2450, L501.9520, L500.4050, L501.5425, L500.2500 ####[facility] [address] [place], [address] T PROT 7.9 g/dL Normal 6.4-8.2 [facility] Comment on above: Order Comment: DR.BE SHIN ORDERED CMP LIPASE @1712 UNDER C345, ADDED TO THISSPECIMEN [id number] Performed By: #### L 503.6620, L100.0100, L300.3900, L300.4310, L501.2450, L501.9520, L500.4050, L501.5425, L500.2500 ####[facility] [address] [place], [address] ALB Normal 3.2-5.0 [facility] Comment on above: Result Comment: ADDE D TO SPECIMEN C341 Performed By: #### L 500.4050, L100.0100 ####[facility] [address] [place], [address] ALK P Normal 45-117 [facility] Comment on above: Result Comment: ADDE D TO SPECIMEN C341 Performed By: #### L 500.4050, L100.0100 ####[facility] [address] [place], [address] ALT Normal 13-56 [facility] Comment on above: Result Comment: ADDE D TO SPECIMEN C341 Performed By: #### L 500.4050, L100.0100 ####[facility] [address] [place], [address] AST Normal 15-37 [facility] Comment on above: Result Comment: ADDE D TO SPECIMEN C341 Performed By: #### L 500.4050, L100.0100 ####[facility] [address] [place], [address] BUN Normal 7-18 [facility] Comment on above: Result Comment: ADDE D TO SPECIMEN C341 Performed By: #### L 500.4050, L100.0100 ####[facility] [address] [place], [address] BUN/CRE Normal 10-20 [facility] Comment on above: Result Comment: ADDE D TO SPECIMEN C341 Performed By: #### L 500.4050, L100.0100 ####[facility] [address] [place], [address] CA,Total Normal 8.5-10.1 [facility] Comment on above: Result Comment: ADDE D TO SPECIMEN C341 Performed By: #### L 500.4050, L100.0100 ####[facility] [address] [place], [address] CL Normal 98-107 [facility] Comment on above: Result Comment: ADDE D TO SPECIMEN C341 Performed By: #### L 500.4050, L100.0100 ####[facility] [address] [place], [address] CO2 Normal 21.0-32.0 [facility] Comment on above: Result Comment: ADDE D TO SPECIMEN C341 Performed By: #### L 500.4050, L100.0100 ####[facility] [address] [place], [address] CREAT,SERUM Normal 0.55-1.02 [facility] Comment on above: Result Comment: ADDE D TO SPECIMEN C341 Performed By: #### L 500.4050, L100.0100 ####[facility] [address] [place], [address] EST GFR Normal >60 [facility] Comment on above: Result Comment: ADDE D TO SPECIMEN C341 Performed By: #### L 500.4050, L100.0100 ####[facility] [address] [place], [address] EST GFR - AA Normal >60 [facility] Comment on above: Result Comment: ADDE D TO SPECIMEN C341 Performed By: #### L 500.4050, L100.0100 ####[facility] [address] [place], [address] GAP Normal 5-15 [facility] Comment on above: Result Comment: ADDE D TO SPECIMEN C341 Performed By: #### L 500.4050, L100.0100 ####[facility] [address] [place], [address] GLU Normal 74-106 [facility] Comment on above: Result Comment: ADDE D TO SPECIMEN C341 Performed By: #### L 500.4050, L100.0100 ####[facility] [address] [place], [address] Potassium Normal 3.5-5.1 [facility] Comment on above: Result Comment: ADDE D TO SPECIMEN C341 Performed By: #### L 500.4050, L100.0100 ####[facility] [address] [place], [address] T BILI Normal 0.20-1.00 [facility] Comment on above: Result Comment: ADDE D TO SPECIMEN C341 Performed By: #### L 500.4050, L100.0100 ####[facility] [address] [place], [address] T PROT Normal 6.4-8.2 [facility] Comment on above: Result Comment: ADDE D TO SPECIMEN C341 Performed By: #### L 500.4050, L100.0100 ####[facility] [address] [place], [address] Comprehensive Metabolic Profil Normal 136-145 [facility] Comment on above: Result Comment: ADDE D TO SPECIMEN C341 Performed By: #### L 500.4050, L100.0100 ####[facility] [address] [place], [address] Emergency Department Summary on 06-16-2024 Emergency Department Summary Normal [facility] H AND P Exam - Hospitaliston 06-16-2024 H&P Exam - Hospitalist Normal [facility] L501.4020on 06-16-2024 TROPONIN-I HS 15 pg/mL Normal 3.0-54.0 [facility] Comment on above: Result Comment: Plea se Note: New Test Units and Gender Specific Reference Ranges. For more information see Policy Stat Procedure Peterman High Sensitivity Troponin (TNIH) and attachments. Performed By: #### L 501.4020 ####[facility] [address] [place], [address] L501.5425on 06-16-2024 TROPONIN-I HS 15 pg/mL Normal 3.0-54.0 [facility] Comment on above: Order Comment: 1Y Result Comment: Plea se Note: New Test Units and Gender Specific Reference Ranges. For more information see Policy Stat Procedure Peterman High Sensitivity Troponin (TNIH) and attachments. Performed By: #### L 503.6620, L100.0100, L300.3900, L300.4310, L501.2450, L501.9520, L500.4050, L501.5425, L500.2500 ####[facility] [address] [place], [address] Lipaseon 06-16-2024 Lipase [Catalytic activity/Vol] U/L Low 13-75 [facility] Comment on above: Order Comment: DR.BE SHIN ORDERED CMP LIPASE @1712 UNDER C345, ADDED TO THISSPECIMEN [id number] Result Comment: Sabine obnilla note:LIPASE revised reference range effective 23.New Lipase methodology. Expected to produce lower valuesthan the previous assay method.NEW Reference Range: 13 - 75 U/L Performed By: #### L 503.6620, L100.0100, L300.3900, L300.4310, L501.2450, L501.9520, L500.4050, L501.5425, L500.2500 ####[facility] [address] [place], [address] Partial Thromboplast Timeon 06-16-2024 aPTT Coag (Bld) [Time] 30.6 s Normal 24.1-36.2 [facility] Comment on above: Performed By: #### L 503.6620, L100.0100, L300.3900, L300.4310, L501.2450, L501.9520, L500.4050, L501.5425, L500.2500 ####[facility] [address] [place], [address] Prothrombin Time w/INRon INR Normal [facility] Comment on above: Result Comment: Stanislaw nice via OM: Duplicate Order Performed By: #### L 300.3900 ####[facility] [address] [place], [address] PROTIME Normal 11.7-14.9 [facility] Comment on above: Result Comment: Stanislaw nice via OM: Duplicate Order Performed By: #### L 300.3900 ####[facility] [address] [place], [address] INR Coag (PPP) [Relative time] 1.4 {INR} Normal [facility] Comment on above: Performed By: #### L 503.6620, L100.0100, L300.3900, L300.4310, L501.2450, L501.9520, L500.4050, L501.5425, L500.2500 ####[facility] [address] [place], [address] PT Coag (PPP) [Time] 16.8 s High 11.7-14.9 [facility] Comment on above: Performed By: #### L 503.6620, L100.0100, L300.3900, L300.4310, L501.2450, L501.9520, L500.4050, L501.5425, L500.2500 ####[facility] [address] [place], [address] Thyroid Stim Hormone (TSH)on 06-16-2024 TSH 2.110 uIU/mL Normal 0.358-3.740 [facility] Comment on above: Order Comment: 1Y Performed By: #### L 503.6620, L100.0100, L300.3900, L300.4310, L501.2450, L501.9520, L500.4050, L501.5425, L500.2500 ####[facility] [address] [place], [address] Urinalysis, Completeon 06-16 BACTERIA 1+ /hpf Normal None Seen [facility] Comment on above: Order Comment: CLEAN CATCH Performed By: #### L 400.0001 ####[facility] [address] [place], [address] EPI,SQUAMOUS 5-10 SEEN Normal 5-10 [facility] Comment on above: Order Comment: CLEAN CATCH Performed By: #### L 400.0001 ####[facility] [address] [place], [address] WBC 5-10 SEEN Normal 0-5 [facility] Comment on above: Order Comment: CLEAN CATCH Performed By: #### L 400.0001 ####[facility] [address] [place], [address] Mucus Ql (Urine sed) 0 SEEN Normal [facility] Comment on above: Order Comment: CLEAN CATCH Performed By: #### L 400.0001 ####[facility] [address] [place], [address] RBC 0 SEEN Normal 0-5 [facility] Comment on above: Order Comment: CLEAN CATCH Performed By: #### L 400.0001 ####[facility] [address] [place], [address] Basic Metabolic Profile (BMP )on 06-12-2024 BUN/CRE 16.8 RATIO Normal 10-20 [facility] Comment on above: Performed By: #### L 500.2500, L100.0100, L300.3900 ####[facility] [address] [place], [address] CA,Total 9.1 mg/dL Normal 8.5-10.1 [facility] Comment on above: Performed By: #### L 500.2500, L100.0100, L300.3900 ####[facility] [address] [place], [address] Chloride [Moles/Vol] 105 mmol/L Normal 98-107 [facility] Comment on above: Performed By: #### L 500.2500, L100.0100, L300.3900 ####[facility] [address] [place], [address] CO2 [Moles/Vol] 26.0 mmol/L Normal 21.0-32.0 [facility] Comment on above: Performed By: #### L 500.2500, L100.0100, L300.3900 ####[facility] [address] [place], [address] Creatinine [Mass/Vol] 0.96 mg/dL Normal 0.55-1.02 [facility] Comment on above: Result Comment: The validity of the calculated GFR GFRAA in patients over70 years has not been determined. Clinical correlation isessential. Performed By: #### L 500.2500, L100.0100, L300.3900 ####[facility] [address] [place], [address] ECRCL 56.42 ml/min Normal [facility] Comment on above: Performed By: #### L 500.2500, L100.0100, L300.3900 ####[facility] [address] [place], [address] EST GFR - AA 73 mL/min Normal >60 [facility] Comment on above: Result Comment: Afri can Colombian GFR Calc Performed By: #### L 500.2500, L100.0100, L300.3900 ####[facility] [address] [place], [address] GAP 8 Normal 5-15 [facility] Comment on above: Performed By: #### L 500.2500, L100.0100, L300.3900 ####[facility] [address] [place], [address] GFR/1.73 sq M.predicted among non-blacks MDRD (S/P/Bld) [Vol rate/Area] 60 mL/min/{1.73_m2} Normal >60 [facility] Comment on above: Result Comment: Non- GFR Calc Performed By: #### L 500.2500, L100.0100, L300.3900 ####[facility] [address] [place], [address] Glucose [Mass/Vol] 113 mg/dL High 74-106 [facility] Comment on above: Result Comment: Fast ing Glucose result from 100 to 125 mg/dLsuggests IMPAIRED HOMEOSTASIS per A.D.A. criteria. Performed By: #### L 500.2500, L100.0100, L300.3900 ####[facility] [address] [place], [address] Potassium [Moles/Vol] 3.4 mmol/L Low 3.5-5.1 [facility] Comment on above: Performed By: #### L 500.2500, L100.0100, L300.3900 ####[facility] [address] [place], [address] Sodium [Moles/Vol] 139 mmol/L Normal 136-145 [facility] Comment on above: Performed By: #### L 500.2500, L100.0100, L300.3900 ####[facility] [address] [place], [address] Urea nitrogen [Mass/Vol] 16 mg/dL Normal 7-18 [facility] Comment on above: Performed By: #### L 500.2500, L100.0100, L300.3900 ####[facility] [address] [place], [address] CBC W/Diff, Automatedon 05-26 Absolute Lymph 1.24 X10 3/uL Normal 0.83-4.51 [facility] Comment on above: Performed By: #### L 500.2500, L100.0100, L300.3900 ####[facility] [address] [place], [address] Absolute Neut 3.1 X10 3/uL Normal 2.0-7.7 [facility] Comment on above: Performed By: #### L 500.2500, L100.0100, L300.3900 ####[facility] [address] [place], [address] Basophils/100 WBC (Bld) 0.8 % Normal 0-1 [facility] Comment on above: Performed By: #### L 500.2500, L100.0100, L300.3900 ####[facility] [address] [place], [address] Eosinophils/100 WBC (Bld) 5.0 % Normal 0-5 [facility] Comment on above: Performed By: #### L 500.2500, L100.0100, L300.3900 ####[facility] [address] [place], [address] Erythrocyte distribution width (RBC) [Ratio] 12.3 % Normal 11.6-14.6 [facility] Comment on above: Performed By: #### L 500.2500, L100.0100, L300.3900 ####[facility] [address] [place], [address] Hematocrit (Bld) [Volume fraction] 37.4 % Normal 37-47 [facility] Comment on above: Performed By: #### L 500.2500, L100.0100, L300.3900 ####[facility] [address] [place], [address] Hemoglobin (Bld) [Mass/Vol] 12.4 g/dL Normal 12.0-15.0 [facility] Comment on above: Performed By: #### L 500.2500, L100.0100, L300.3900 ####[facility] [address] [place], [address] IG% 0.400 Normal 0.0-0.9 [facility] Comment on above: Result Comment: IG% - Immature Granulocytes (promyelocytes, myelocytes andmetamyelocytes) > 1% indicates that a LEFT SHIFT is Present. Performed By: #### L 500.2500, L100.0100, L300.3900 ####[facility] [address] [place], [address] Lymphocytes/100 WBC (Bld) 23.7 % Normal 19-41 [facility] Comment on above: Performed By: #### L 500.2500, L100.0100, L300.3900 ####[facility] [address] [place], [address] MCH (RBC) [Entitic mass] 32.1 pg High 27.0-32.0 [facility] Comment on above: Performed By: #### L 500.2500, L100.0100, L300.3900 ####[facility] [address] [place], [address] MCHC (RBC) [Mass/Vol] 33.2 g/dL Normal 32-36 [facility] Comment on above: Performed By: #### L 500.2500, L100.0100, L300.3900 ####[facility] [address] [place], [address] MCV (RBC) [Entitic vol] 96.9 fL Normal 81-99 [facility] Comment on above: Performed By: #### L 500.2500, L100.0100, L300.3900 ####[facility] [address] [place], [address] Monocytes/100 WBC (Bld) 10.1 % High 0-10 [facility] Comment on above: Performed By: #### L 500.2500, L100.0100, L300.3900 ####[facility] [address] [place], [address] Neutrophils/100 WBC (Bld) 60.0 % Normal 47-70 [facility] Comment on above: Performed By: #### L 500.2500, L100.0100, L300.3900 ####[facility] [address] [place], [address] Nucleated RBC (Bld) [#/Vol] 0 10*3/uL Normal 0-5 [facility] Comment on above: Performed By: #### L 500.2500, L100.0100, L300.3900 ####[facility] [address] [place], [address] Platelet mean volume (Bld) [Entitic vol] 9.7 fL Normal 6.2-12.0 [facility] Comment on above: Performed By: #### L 500.2500, L100.0100, L300.3900 ####[facility] [address] [place], [address] Platelets (Bld) [#/Vol] 140 10*3/uL Low 150-450 [facility] Comment on above: Performed By: #### L 500.2500, L100.0100, L300.3900 ####[facility] [address] [place], [address] RBC (Bld) [#/Vol] 3.86 10*6/uL Low 4.2-5.4 [facility] Comment on above: Performed By: #### L 500.2500, L100.0100, L300.3900 ####[facility] [address] [place], [address] RDW SD 43.8 fl Normal 35.1-43.9 [facility] Comment on above: Performed By: #### L 500.2500, L100.0100, L300.3900 ####[facility] [address] [place], [address] WBC (Bld) [#/Vol] 5.2 10*3/uL Normal 4.4-11.0 [facility] Comment on above: Performed By: #### L 500.2500, L100.0100, L300.3900 ####[facility] [address] [place], [address] Emergency Department Summary on 06-12-2024 Emergency Department Summary Normal [facility] Prothrombin Time w/INRon INR Coag (PPP) [Relative time] 2.3 {INR} Normal [facility] Comment on above: Performed By: #### L 500.2500, L100.0100, L300.3900 ####[facility] [address] [place], [address] PT Coag (PPP) [Time] 25.5 s High 11.7-14.9 [facility] Comment on above: Performed By: #### L 500.2500, L100.0100, L300.3900 ####[facility] [address] [place], [address] Spine Lumbar without Contras ton 06-12-2024 Spine Lumbar without Contrast Normal [facility] Spine Thoracic without Contr ason 06-12-2024 Spine Thoracic without Contras Normal [facility] Urinalysis, Completeon 06-12 EPI,SQUAMOUS 0-5 SEEN Normal 5-10 [facility] Comment on above: Order Comment: CHAYA CTOR TO SPECIFY Performed By: #### L 400.0001 ####[facility] [address] [place], [address] WBC 0-5 SEEN Normal 0-5 [facility] Comment on above: Order Comment: CHAYA CTOR TO SPECIFY Performed By: #### L 400.0001 ####[facility] [address] [place], [address] BACTERIA 0 SEEN Normal None Seen [facility] Comment on above: Order Comment: CHAYA CTOR TO SPECIFY Performed By: #### L 400.0001 ####[facility] [address] [place], [address] Mucus Ql (Urine sed) 0 SEEN Normal [facility] Comment on above: Order Comment: COLLE CTOR TO SPECIFY Performed By: #### L 400.0001 ####[facility] [address] [place], [address] RBC 0 SEEN Normal 0-5 [facility] Comment on above: Order Comment: COLLE CTOR TO SPECIFY Performed By: #### L 400.0001 ####[facility] [address] [place], [address] Basic Metabolic Profile (BMP )on 06-10-2024 BUN/CRE 14.8 RATIO Normal 10-20 [facility] Comment on above: Order Comment: For P PM generator change 07/04/24 Performed By: #### L 400.0001, L100.0500, L500.2500, L300.3900 ####[facility] [address] [place], [address] CA,Total 9.3 mg/dL Normal 8.5-10.1 [facility] Comment on above: Order Comment: For P PM generator change 07/04/24 Performed By: #### L 400.0001, L100.0500, L500.2500, L300.3900 ####[facility] [address] [place], [address] Chloride [Moles/Vol] 106 mmol/L Normal 98-107 [facility] Comment on above: Order Comment: For P PM generator change 07/04/24 Performed By: #### L 400.0001, L100.0500, L500.2500, L300.3900 ####[facility] [address] [place], [address] CO2 [Moles/Vol] 25.0 mmol/L Normal 21.0-32.0 [facility] Comment on above: Order Comment: For P PM generator change 07/04/24 Performed By: #### L 400.0001, L100.0500, L500.2500, L300.3900 ####[facility] [address] [place], [address] Creatinine [Mass/Vol] 0.95 mg/dL Normal 0.55-1.02 [facility] Comment on above: Order Comment: For P PM generator change 07/04/24 Result Comment: The validity of the calculated GFR GFRAA in patients over70 years has not been determined. Clinical correlation isessential. Performed By: #### L 400.0001, L100.0500, L500.2500, L300.3900 ####[facility] [address] [place], [address] EST GFR - AA 74 mL/min Normal >60 [facility] Comment on above: Order Comment: For P PM generator change 07/04/24 Result Comment: Afri can Colombian GFR Calc Performed By: #### L 400.0001, L100.0500, L500.2500, L300.3900 ####[facility] [address] [place], [address] GAP 8 Normal 5-15 [facility] Comment on above: Order Comment: For P PM generator change 07/04/24 Performed By: #### L 400.0001, L100.0500, L500.2500, L300.3900 ####[facility] [address] [place], [address] GFR/1.73 sq M.predicted among non-blacks MDRD (S/P/Bld) [Vol rate/Area] 61 mL/min/{1.73_m2} Normal >60 [facility] Comment on above: Order Comment: For P PM generator change 07/04/24 Result Comment: Non- GFR Calc Performed By: #### L 400.0001, L100.0500, L500.2500, L300.3900 ####[facility] [address] [place], [address] Glucose [Mass/Vol] 89 mg/dL Normal 74-106 [facility] Comment on above: Order Comment: For P PM generator change 07/04/24 Performed By: #### L 400.0001, L100.0500, L500.2500, L300.3900 ####[facility] [address] [place], [address] Potassium [Moles/Vol] 3.6 mmol/L Normal 3.5-5.1 [facility] Comment on above: Order Comment: For P PM generator change 07/04/24 Performed By: #### L 400.0001, L100.0500, L500.2500, L300.3900 ####[facility] [address] [place], [address] Sodium [Moles/Vol] 139 mmol/L Normal 136-145 [facility] Comment on above: Order Comment: For P PM generator change 07/04/24 Performed By: #### L 400.0001, L100.0500, L500.2500, L300.3900 ####[facility] [address] [place], [address] Urea nitrogen [Mass/Vol] 14 mg/dL Normal 7-18 [facility] Comment on above: Order Comment: For P PM generator change 07/04/24 Performed By: #### L 400.0001, L100.0500, L500.2500, L300.3900 ####[facility] [address] [place], [address] CBC-Complete Blood Cnt No Di ffon 06-10-2024 Erythrocyte distribution width (RBC) [Ratio] 12.3 % Normal 11.6-14.6 [facility] Comment on above: Order Comment: Comme nts: For PPM generator change Performed By: #### L 400.0001, L100.0500, L500.2500, L300.3900 ####[facility] [address] [place], [address] Hematocrit (Bld) [Volume fraction] 39.4 % Normal 37-47 [facility] Comment on above: Order Comment: Comme nts: For PPM generator change Performed By: #### L 400.0001, L100.0500, L500.2500, L300.3900 ####[facility] [address] [place], [address] Hemoglobin (Bld) [Mass/Vol] 12.9 g/dL Normal 12.0-15.0 [facility] Comment on above: Order Comment: Comme nts: For PPM generator change Performed By: #### L 400.0001, L100.0500, L500.2500, L300.3900 ####[facility] [address] [place], [address] MCH (RBC) [Entitic mass] 31.9 pg Normal 27.0-32.0 [facility] Comment on above: Order Comment: Comme nts: For PPM generator change Performed By: #### L 400.0001, L100.0500, L500.2500, L300.3900 ####[facility] [address] [place], [address] MCHC (RBC) [Mass/Vol] 32.7 g/dL Normal 32-36 [facility] Comment on above: Order Comment: Comme nts: For PPM generator change Performed By: #### L 400.0001, L100.0500, L500.2500, L300.3900 ####[facility] [address] [place], [address] MCV (RBC) [Entitic vol] 97.5 fL Normal 81-99 [facility] Comment on above: Order Comment: Comme nts: For PPM generator change Performed By: #### L 400.0001, L100.0500, L500.2500, L300.3900 ####[facility] [address] [place], [address] Platelet mean volume (Bld) [Entitic vol] 10.1 fL Normal 6.2-12.0 [facility] Comment on above: Order Comment: Comme nts: For PPM generator change Performed By: #### L 400.0001, L100.0500, L500.2500, L300.3900 ####[facility] [address] [place], [address] Platelets (Bld) [#/Vol] 134 10*3/uL Low 150-450 [facility] Comment on above: Order Comment: Comme nts: For PPM generator change Performed By: #### L 400.0001, L100.0500, L500.2500, L300.3900 ####[facility] [address] [place], [address] RBC (Bld) [#/Vol] 4.04 10*6/uL Low 4.2-5.4 [facility] Comment on above: Order Comment: Comme nts: For PPM generator change Performed By: #### L 400.0001, L100.0500, L500.2500, L300.3900 ####[facility] [address] [place], [address] RDW SD 43.9 fl Normal 35.1-43.9 [facility] Comment on above: Order Comment: Comme nts: For PPM generator change Performed By: #### L 400.0001, L100.0500, L500.2500, L300.3900 ####[facility] [address] [place], [address] WBC (Bld) [#/Vol] 5.2 10*3/uL Normal 4.4-11.0 [facility] Comment on above: Order Comment: Comme nts: For PPM generator change Performed By: #### L 400.0001, L100.0500, L500.2500, L300.3900 ####[facility] [address] [place], [address] [facility] Tele[facility] (INTMWS) KEISHA RED ([id number]) 1945 F Date Time Provider Department 06/10/24 JOON LOPEZ INTMWS During your visit today, we recorded the following information about you: Yuko Ordonez RN 06/10/2024 8:58 AM Signed Patient's daughter [...] med. See if patient eating normally. Carolina Kuo LPN 06/10/2024 11:40 AM Signed LEFT MESSAGE FOR PATIENT's daughter TO CALL OFFICE. Hilaria Avina, VLAD 06/10/2024 11:50 AM Signed DaughterBrooke, returned call and given provider's message below. Brooke reports patient is eating normally, they are making sure of that. Reports patient will be off of coumadin this weekend per Dr. Emerson. Brooke would like pcp to send rx for the oxycodone to [facility] William. Joon Lopez MD 06/10/2024 1:14 PM Signed [...] hours as needed for wheezing/shortness of breath. 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) - nitrofurantoin macrocrystal (MACRODANTIN) 100 mg [...] 1 P (more content not included)... Normal [facility] Cardiology Visit Reporton Cardiology Visit Report Normal [facility] Chest PA and Lateralon 06-10 Chest PA and Lateral Normal [facility] Pacemaker Checkon 06-10-2024 Pacemaker Check Normal [facility] Prothrombin Time w/INRon INR Coag (PPP) [Relative time] 3.7 {INR} Normal [facility] Comment on above: Order Comment: Comme nts: For PPM generator change Performed By: #### L 400.0001, L100.0500, L500.2500, L300.3900 ####[facility] [address] [place], [address] PT Coag (PPP) [Time] 36.2 s High 11.7-14.9 [facility] Comment on above: Order Comment: Comme nts: For PPM generator change Performed By: #### L 400.0001, L100.0500, L500.2500, L300.3900 ####[facility] [address] [place], [address] Urinalysis, Completeon 06-10 BACTERIA 3+ /hpf Normal None Seen [facility] Comment on above: Order Comment: For P PM generator change 07/04/24COLLECTOR TO SPECIFY Performed By: #### L 400.0001, L100.0500, L500.2500, L300.3900 ####[facility] [address] [place], [address] CAST,HYALINE 0-5 SEEN Normal 0-5 [facility] Comment on above: Order Comment: For P PM generator change 07/04/24COLLECTOR TO SPECIFY Performed By: #### L 400.0001, L100.0500, L500.2500, L300.3900 ####[facility] [address] [place], [address] EPI,SQUAMOUS 0-5 SEEN Normal 5-10 [facility] Comment on above: Order Comment: For P PM generator change 07/04/24COLLECTOR TO SPECIFY Performed By: #### L 400.0001, L100.0500, L500.2500, L300.3900 ####[facility] [address] [place], [address] WBC 0-5 SEEN Normal 0-5 [facility] Comment on above: Order Comment: For P PM generator change 07/04/24COLLECTOR TO SPECIFY Performed By: #### L 400.0001, L100.0500, L500.2500, L300.3900 ####[facility] [address] [place], [address] Mucus Ql (Urine sed) 0 SEEN Normal [facility] Comment on above: Order Comment: For P PM generator change 07/04/24COLLECTOR TO SPECIFY Performed By: #### L 400.0001, L100.0500, L500.2500, L300.3900 ####[facility] [address] [place], [address] RBC 0 SEEN Normal 0-5 [facility] Comment on above: Order Comment: For P PM generator change 07/04/24COLLECTOR TO SPECIFY Performed By: #### L 400.0001, L100.0500, L500.2500, L300.3900 ####[facility] [address] [place], [address] CNPNon 06-08-2024 [facility] Telephone (INTMWS) KEISHA RED ([id number]) 1945 F Date Time Provider Department 06/08/24 [...] Fully Assessed Reason for Visit: No Show [7578] Prescriptions as of 06/08/2024 - albuterol HFA (PROAIR HFA) 90 mcg/actuation inhaler Inhale 2 Puffs as instructed every 4 hours as needed for wheezing/shortness of breath. 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) - nitrofurantoin macrocrystal (MACRODANTIN) 100 mg [...] patch after 12 hours. Location: Back/ribs - oxyCODONE-acetaminop hen (PERCOCET) 5-325 mg tablet Take 1 tablet [...] For rash on extremities and leg - budesonide-formotero l (SYMBICORT) 160-4.5 mcg/actuation inhaler Inhale 2 Puffs as instructed twice daily. ([facility] pulmonology) - blood sugar diagnostic (BLOOD GLUCOSE [...] Encounter Status:Closed by JAMARI MAKI on 06/08/24 Normal [facility] Tele[facility] (INTMWS) KEISHA RED ([id number]) 1945 F Date Time Provider Department 06/08/24 JOON LOPEZ INTMWS During your visit today, we recorded the following information about you: Roopa Edgar, VLAD 06/08/2024 9:42 AM Signed Soren with [facility] calls to let provider know that patient [...] recommendations for pain control from provider. VLAD eRyna Liza D, MD 06/08/2024 7:33 PM Signed Does the Percocet or flexeril help at all for the pain? Guerline Davila LPN 06/09/2024 9:56 AM Signed Spoke with Soren with [facility] Soren states that he believes she only [...] causing her INR to go up so ultimate hoops referee want her to titrate this down. Methocarbamo [...] hours as needed for wheezing/shortness of breath. 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) - nitrofurantoin macrocrystal (MACRODANTIN) 100 mg [...] patch after 12 hours. Location: Back/ribs - oxyCODONE-acetaminop hen (PERCOCET) 5-325 mg tablet Take 1 tablet [...] For rash on extremities and leg - budesonide-formotero l (SYMBICORT) 160-4.5 mcg/actuation inhaler Inhale 2 Puffs as instructed twice daily. ([facility] pulmonology) - blood sugar diagnostic (BLOOD GLUCOSE TEST) test strip Test blood sugar(s) 1 times daily. Dx: Type 2 DM - Controlled E11.9 Insulin: No - Lancets lancets Test blood sugar(s) (more content not included)... Normal [facility] 06-03-2024 [facility] Telephone ([facility]) KEISHA RED ([id number]) 1945 F Date Time Provider Department 06/03/24 CONNIE GIORDANO [facility] During your visit today, we recorded the following information about you: Connie Giordano APRN.RADAR ENGINEERING TEACHER 06/03/2024 7:19 AM Signed Please notify caregiver [...] hours as needed for wheezing/shortness of breath. 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) - nitrofurantoin macrocrystal (MACRODANTIN) 100 mg [...] patch after 12 hours. Location: Back/ribs - oxyCODONE-acetaminop hen (PERCOCET) 5-325 mg tablet Take 1 tablet [...] For rash on extremities and leg - budesonide-formotero l (SYMBICORT) 160-4.5 mcg/actuation inhaler Inhale 2 Puffs as instructed twice daily. ([facility] pulmonology) - blood sugar diagnostic (BLOOD GLUCOSE [...] Status:Closed by CARMELA KENNEDY on 06/03/24 Normal [facility] 12 Lead EKGon 06-01-2024 12 Lead EKG Normal [facility] Bacteria Ur Culton Bacteria identified Cx Nom (U) ORGANISM ID: 1 >=100,000 CFU/ml Mixed microbiota No further workup. Mixed microbiota can be due to???urine???contami nation with skin bacteria at time of collection or presence of a long-term urinary catheter. If a new culture is needed, please consider re-education of the patient on proper midstream collection technique or straight catheterization for???urine???collec tion. Normal [facility] Comment on above: Performed By: #### 6 30-4 ####[facility] LABCLIA [id number] [address] [address] [place] Basic Metabolic Profile (BMP )on 06-01-2024 BUN/CRE 15.1 RATIO Normal 10-20 [facility] Comment on above: Performed By: #### L 500.2500, L100.0500 ####[facility] [address] [place], [address] CA,Total 9.5 mg/dL Normal 8.5-10.1 [facility] Comment on above: Performed By: #### L 500.2500, L100.0500 ####[facility] [address] [place], [address] Chloride [Moles/Vol] 107 mmol/L Normal 98-107 [facility] Comment on above: Performed By: #### L 500.2500, L100.0500 ####[facility] [address] [place], [address] CO2 [Moles/Vol] 28.0 mmol/L Normal 21.0-32.0 [facility] Comment on above: Performed By: #### L 500.2500, L100.0500 ####[facility] [address] [place], [address] Creatinine [Mass/Vol] 1.06 mg/dL High 0.55-1.02 [facility] Comment on above: Result Comment: The validity of the calculated GFR GFRAA in patients over70 years has not been determined. Clinical correlation isessential. Performed By: #### L 500.2500, L100.0500 ####[facility] [address] [place], [address] ECRCL 51.09 ml/min Normal [facility] Comment on above: Performed By: #### L 500.2500, L100.0500 ####[facility] [address] [place], [address] EST GFR - AA 65 mL/min Normal >60 [facility] Comment on above: Result Comment: Afri can Colombian GFR Calc Performed By: #### L 500.2500, L100.0500 ####[facility] [address] [place], [address] GAP 4 Low 5-15 [facility] Comment on above: Performed By: #### L 500.2500, L100.0500 ####[facility] [address] [place], [address] GFR/1.73 sq M.predicted among non-blacks MDRD (S/P/Bld) [Vol rate/Area] 53 mL/min/{1.73_m2} Low >60 [facility] Comment on above: Result Comment: Non- GFR Calc Performed By: #### L 500.2500, L100.0500 ####[facility] [address] [place], [address] Glucose [Mass/Vol] 147 mg/dL High 74-106 [facility] Comment on above: Result Comment: Fast ing Glucose result greater than or equal to 126 mg/dLsuggests DIABETES MELLITUS per A.D.A. criteria. Performed By: #### L 500.2500, L100.0500 ####[facility] [address] [place], [address] Potassium [Moles/Vol] 3.5 mmol/L Normal 3.5-5.1 [facility] Comment on above: Performed By: #### L 500.2500, L100.0500 ####[facility] [address] [place], [address] Sodium [Moles/Vol] 139 mmol/L Normal 136-145 [facility] Comment on above: Performed By: #### L 500.2500, L100.0500 ####[facility] [address] [place], [address] Urea nitrogen [Mass/Vol] 16 mg/dL Normal 7-18 [facility] Comment on above: Performed By: #### L 500.2500, L100.0500 ####[facility] [address] [place], [address] Brain/Head without Contrasto n 06-01-2024 Brain/Head without Contrast Normal [facility] CBC-Complete Blood Cnt No Di ffon 06-01-2024 Erythrocyte distribution width (RBC) [Ratio] 12.7 % Normal 11.6-14.6 [facility] Comment on above: Performed By: #### L 500.2500, L100.0500 ####[facility] [address] [place], [address] Hematocrit (Bld) [Volume fraction] 38.8 % Normal 37-47 [facility] Comment on above: Performed By: #### L 500.2500, L100.0500 ####[facility] [address] [place], [address] Hemoglobin (Bld) [Mass/Vol] 12.7 g/dL Normal 12.0-15.0 [facility] Comment on above: Performed By: #### L 500.2500, L100.0500 ####[facility] [address] [place], [address] MCH (RBC) [Entitic mass] 31.7 pg Normal 27.0-32.0 [facility] Comment on above: Performed By: #### L 500.2500, L100.0500 ####[facility] [address] [place], [address] MCHC (RBC) [Mass/Vol] 32.7 g/dL Normal 32-36 [facility] Comment on above: Performed By: #### L 500.2500, L100.0500 ####[facility] [address] [place], [address] MCV (RBC) [Entitic vol] 96.8 fL Normal 81-99 [facility] Comment on above: Performed By: #### L 500.2500, L100.0500 ####[facility] [address] [place], [address] Platelet mean volume (Bld) [Entitic vol] 9.9 fL Normal 6.2-12.0 [facility] Comment on above: Performed By: #### L 500.2500, L100.0500 ####[facility] [address] [place], [address] Platelets (Bld) [#/Vol] 136 10*3/uL Low 150-450 [facility] Comment on above: Performed By: #### L 500.2500, L100.0500 ####[facility] [address] [place], [address] RBC (Bld) [#/Vol] 4.01 10*6/uL Low 4.2-5.4 [facility] Comment on above: Performed By: #### L 500.2500, L100.0500 ####[facility] [address] [place], [address] RDW SD 45.2 fl High 35.1-43.9 [facility] Comment on above: Performed By: #### L 500.2500, L100.0500 ####[facility] [address] [place], [address] WBC (Bld) [#/Vol] 5.4 10*3/uL Normal 4.4-11.0 [facility] Comment on above: Performed By: #### L 500.2500, L100.0500 ####[facility] [address] [place], [address] CNOVon 06-01-2024 CNOV Office Visit (UCWSTR) KEISHA RED ([id number]) 1945 F Date Time Provider Department 06/01/24 4:45 PM [facility] During your visit today, we recorded the following information about you: Temperature Pulse Respiration Blood pressure 97.8 degrees 86/minute 21/minute 150/76 Weight 86.5 kg Clarisse Joyce APRN.DOMINGO 06/01/2024 5:38 PM Signed This note was created using NoteWriter. Subjective Keisha Red is a 79 year old female. 79 year old female with PMH aflutter, HTN, hyperlipidemia, asthma, RAMESH, DM, DDD presents for complaints of possible UTI Acute onset Started today Per home health nurse she was hallucinating. She had weakness, and almost fell while going out of door prior to arrival Of note, patient was evaluated and admitted to [facility] At that time she was evaluated for falls and found to have a UTI Presents with her son today, with concerns she has UTI again. Denies abdominal pain Denies N/V/D Denies burning, frequency, or urgency Patient denies pain. The history is provided by the patient. No modern languages professor was used. PAST MEDICAL HISTORY No date: [...] Right shoulder s/p fall with reduction at [facility] No date: Type II or unspecified type [...] hours as needed for wheezing/shortness of breath. 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) nitrofurantoin macrocrystal (MACRODANTIN) 100 mg capsule [...] Remove patch after 12 hours. Location: Back/ribs oxyCODONE-acetaminop hen (PERCOCET) 5-325 mg tablet Take 1 tablet [...] needed. For rash on extremities and leg budesonide-formotero l (SYMBICORT) 160-4.5 mcg/actuation inhaler Inhale 2 Puffs as instructed twice daily. ([facility] pulmonology) blood sugar diagnostic (BLOOD GLUCOSE [...] Use Smoki (more content not included)... Normal [facility] CNPNon 06-01-2024 CNPN Telephone (INTMWS) KEISHA RED ([id number]) 1945 F Date Time Provider Department 06/01/24 JOON LOPEZ INTMWS During your visit today, we recorded the following information about you: Tamy Donis LPN 06/01/2024 3:23 PM Signed Soren from [facility] calling patient is complaining of more back pain, her TENS unit broke. Family is trying to get another one for her. Daughter was asking for pain management referral, not Dr Agudelo, she was saying Dr Hodges here in [place]. Pending consult, needs diagnosis. Please advise Trini Tang APRN.WILDLAND FIREFIGHTER 06/02/2024 2:29 PM Signed Ok please process Guerline Davila LPN 06/02/2024 2:50 PM Signed Soren from [facility] notified of providers message and verbalized understanding. [...] Order(s):CONSULT TO PAIN MGT [20000131] Order #: [id number]: 1 FUTURE Prescriptions as of 06/02/2024 - albuterol HFA (PROAIR HFA) 90 mcg/actuation inhaler Inhale 2 Puffs as instructed every 4 hours as needed for wheezing/shortness of breath. 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) - nitrofurantoin macrocrystal (MACRODANTIN) 100 mg [...] patch after 12 hours. Location: Back/ribs - oxyCODONE-acetaminop hen (PERCOCET) 5-325 mg tablet Take 1 tablet [...] For rash on extremities and leg - budesonide-formotero l (SYMBICORT) 160-4.5 mcg/actuation inhaler Inhale 2 Puffs as instructed twice daily. ([facility] pulmonology) - blood sugar diagnostic (BLOOD GLUCOSE [...] 01/21/2021 Pacemak (more content not included)... Normal [facility] Chest 1 View (Portable)on Chest 1 View (Portable) Normal [facility] Emergency Department Summary on 06-01-2024 Emergency Department Summary Normal [facility] Prothrombin Time w/INRon INR Coag (PPP) [Relative time] 2.3 {INR} Normal [facility] Comment on above: Performed By: #### L 300.3900 ####[facility] [address] [place], [place], [id number] PT Coag (PPP) [Time] 25.3 s High 11.7-14.9 [facility] Comment on above: Performed By: #### L 300.3900 ####[facility] [address] [place], [address] UA DIP, URINE (POC)on 2023 BILIRUBIN UA (POCT) Small Abnormal Negative [facility] CLARITY UA (POCT) [facility]y [facility] COLOR UA (POCT) Dark yellow [facility] GLUCOSE UA (POCT) Negative Negative mg/dL [facility] Hemoglobin Ql (U) Negative Negative [facility] Interpretation and review of laboratory results Abnormal [facility] KETONE UA (POCT) Negative Negative mg/dL [facility] LEUKOCYTES UA (POCT) Small Abnormal Negative [facility] NITRITE UA (POCT) Negative Negative [facility] PH UA (POCT) 5.5 4.5 - 8.0 [facility] Protein Ql (U) 30 mg/dL Abnormal Negative [facility] SPECIFIC GRAVITY UA (POCT) >=1.030 1.005 - 1.030 [facility] UROBILINOGEN UA (POCT) 0.2 Carlita l E.U./dL [facility] Location:[facility] [place] [place], [address] [facility] POINT OF CARE [facility] Urinalysis, Completeon 06-01 BACTERIA 1+ /hpf Normal None Seen [facility] Comment on above: Order Comment: CLEAN CATCH Performed By: #### L 400.0001 ####[facility] [address] [place], [address] RBC 0-5 SEEN Normal 0-5 [facility] Comment on above: Order Comment: CLEAN CATCH Performed By: #### L 400.0001 ####[facility] [address] [place], [place], [address] WBC 0-5 SEEN Normal 0-5 [facility] Comment on above: Order Comment: CLEAN CATCH Performed By: #### L 400.0001 ####[facility] [address] [place], [address] EPI,SQUAMOUS 0 SEEN Normal 5-10 [facility] Comment on above: Order Comment: CLEAN CATCH Performed By: #### L 400.0001 ####[facility] [address] [place], [place], [address] Mucus Ql (Urine sed) 0 SEEN Normal [facility] Comment on above: Order Comment: CLEAN CATCH Performed By: #### L 400.0001 ####[facility] [address] [place], [place], [address] CNPNon 05-12-2024 CNPN Telephone (INTMWS) KEISHA RED ([id number]) 1945 F Date Time Provider Department 05/12/24 JOON LOPEZ INTMWS During your visit today, we recorded the following information about you: Sandy Nunez LPN 05/12/2024 11:11 AM Signed Prior authorization approved Payer: [employer] [phone] CaseId:[id number];Stat us:Approved;Review Type:Prior Auth;Coverage Start Date:04/27/2024;Patton rage End Date:05/12/2025; Approval Details Authorized from April 27, 2024 to May 12, 2025 Electronic appeal: Not supported View History Medication Being Authorized cyclobenzaprine (FLEXERIL) 5 mg tablet Take 1-2 tablets by mouth two times a day as needed for muscle spasm. Dispense: 40 tablet Refills: 1 Start: 05/11/2024 Class: Normal This order has been released to its destination. To be filled at: [facility] [id number] [place] [address] [address] [phone] Pharmacy notified. Allergies As of Date: 05/12/2024 [...] patch after 12 hours. Location: Back/ribs - oxyCODONE-acetaminop hen (PERCOCET) 5-325 mg tablet Take 1 tablet [...] hours as needed for wheezing/shortness of breath. 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 ([facility] pulmonology) - blood sugar diagnostic (BLOOD GLUCOSE [...] Pacemaker [Z95.0 (more content not included)... Normal [facility] CNOVon 05-11-2024 CNOV Office Visit (INTMWS) NEDAKEISHA SANTOYO ([id number]) 1945 F Date Time Provider Department 05/11/24 2:20 PM JOON LOPEZ INTMWS During your visit today, we recorded the following information about you: Pulse Respiration Blood pressure Weight 76/minute 18/minute 138/72 89.6 kg Joon Lopez MD 06/18/2024 10:16 PM Signed Chief Complaint Patient presents with: Hospital Follow Up HPI Keisha Tracie Neda is a 79 year old female who presents here today for a Hospital follow up. Pt here today for a [facility] follow up. Here with daughter, Ana Maria. Pt presented to [facility] ED on 05/04/24 with symptoms of confusion [...] other options. Pt is getting HH/PT through [facility] out to her home. Just started yesterday. Uro - Follows with Urology, takes Ditropan XL 10 mg once daily. Treated UTI with Macrobid 100 mg bid for 5 days. [facility] Report: HPI - General General Date of [...] Complicated UTIs w/ persistent history of bilateral hydroureteronephrosi s with previous history of distal ureteral stricture [...] for discomfort who now represents to the [facility] ED later in the evening on 05/04/24 [...] In the ED upon re-evaluation patient ministered Maple 1 tab p.o. x 1 and IV Rocephin 1 g x 1. RAD/Chest 1 View (Portable) IMPRESSION: No ac (more content not included)... Normal [facility] Laxmi 05-11-2024 [facility] Telephone (INTMWS) KEISHA RED ([id number]) 1945 F Date Time Provider Department 05/11/24 JOON LOPEZ INTMWS During your visit today, we recorded the following information about you: Ira Peralta RN 05/11/2024 4:36 PM Signed Starr PT with [facility] calling with plan of care for patient. [...] patch after 12 hours. Location: Back/ribs - oxyCODONE-acetaminop hen (PERCOCET) 5-325 mg tablet Take 1 tablet [...] hours as needed for wheezing/shortness of breath. 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 ([facility] pulmonology) - blood sugar diagnostic (BLOOD GLUCOSE [...] Encounter Status:Closed by JOON LOPEZ on 05/11/24 [facility] KEISHA RED ([id number]) 1945 F Date Time Provider Department 05/11/24 JOON LOPEZ INTMWS During your visit today, we recorded the following information about you: Yuko Ordonez RN 05/11/2024 1:46 PM Signed Steffi VILA calling from [facility] to report plan of care for patient and occupational therapy will visit patient 1 time a week for 5 weeks. Occupational therapy will work with patient on safety and IAdls. No call back needed. VLAD Birch Rosa, APRN.RADAR ENGINEERING TEACHER 05/11/2024 2:36 PM Signed Noted, agree. Allergies [...] hours as needed for wheezing/shortness of breath. 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 ([facility] pulmonology) - blood sugar diagnostic (BLOOD GLUCOSE [...] Status:Closed by YUKO ORDONEZ on 05/11/24 Normal [facility] 05-10-2024 [facility] Telephone (INTMWS) KEISHA RED ([id number]) 1945 F Date Time Provider Department 05/10/24 JOON LOPEZ INTMWS During your visit today, we recorded the following information about you: Miguelina Parson RN 05/10/2024 4:52 PM Signed Soren nurse from [facility] HH calling with admission plan of care. [facility] nursing will see 2 times per week for 1 week then 1 time per week for 4 weeks. Confirming pt's med list. Per [facility] discharge med list, Metformin was stopped by hospitalist and Glimepiride was for 2 mg take 1 tablet once a day. Soren noted that on prescription anyae pt has at home the Glimepiride is ordered as 1 tablet two times a day with meals which is confirmed from [facility] med list. He is going to continue having the pt take twice daily since Metformin was discontinued. He is unsure why the Metformin was discontinued. Last HgbA1c done in [facility] was 09/23/23 with result 6.5. Appears pt was to have repeated in February but was not done. Had other labs completed but no HgbA1c. Soren has no record of one being done either at [facility] recently. States he has a fasting glucose of 174 done on 05/07/24 at [facility]. Also asked if pt had active Percocet [...] Date Reviewed: 03/22/2024 Reviewed by: Whitney Hammond APRN.RADAR ENGINEERING TEACHER - Fully Assessed Reason for Visit: Home [...] hours as needed for wheezing/shortness of breath. 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 ([facility] pulmonology) - blood sugar diagnostic (BLOOD GLUCOSE TEST) test strip Test blood sugar(s) 1 times daily. Dx: Type 2 DM - Controlled E11.9 Insulin: No - Lancets lancets Test blood sugar(s) 1 times daily. Dx: Type 2 DM - Controlled E11.9 Insulin: No - warfarin (COUMADIN) 5 mg tablet Take (more content not included)... Normal [facility] Prothrombin Time w/INRon INR Normal [facility] Comment on above: Result Comment: Canc elled via OM: Order cancelled - Patient discharged Performed By: #### L 300.3900 ####[facility] [address] [place], [address] PROTIME Normal 11.7-14.9 [facility] Comment on above: Result Comment: Canc elled via OM: Order cancelled - Patient discharged Performed By: #### L 300.3900 ####[facility] [address] [place], [address] Prothrombin Time w/INRon INR Normal [facility] Comment on above: Result Comment: Canc elled via OM: Order cancelled - Patient discharged Performed By: #### L 300.3900 ####[facility] [address] [place], [address] PROTIME Normal 11.7-14.9 [facility] Comment on above: Result Comment: Canc elled via OM: Order cancelled - Patient discharged Performed By: #### L 300.3900 ####[facility] [address] [place], [address] Basic Metabolic Profile (BMP )on 05-07-2024 BUN/CRE 26.2 RATIO High 10-20 [facility] Comment on above: Performed By: #### L 100.0100, L500.2500 ####[facility] [address] [place], [address] CA,Total 8.5 mg/dL Normal 8.5-10.1 [facility] Comment on above: Performed By: #### L 100.0100, L500.2500 ####[facility] [address] [place], [address] Chloride [Moles/Vol] 107 mmol/L Normal 98-107 [facility] Comment on above: Performed By: #### L 100.0100, L500.2500 ####[facility] [address] [place], [address] CO2 [Moles/Vol] 24.0 mmol/L Normal 21.0-32.0 [facility] Comment on above: Performed By: #### L 100.0100, L500.2500 ####[facility] [address] [place], [address] Creatinine [Mass/Vol] 1.22 mg/dL High 0.55-1.02 [facility] Comment on above: Result Comment: The validity of the calculated GFR GFRAA in patients over70 years has not been determined. Clinical correlation isessential. Performed By: #### L 100.0100, L500.2500 ####[facility] [address] [place], [address] ECRCL 45.37 ml/min Normal [facility] Comment on above: Performed By: #### L 100.0100, L500.2500 ####[facility] [address] [place], [address] EST GFR - AA 55 mL/min Low >60 [facility] Comment on above: Result Comment: Afri can Colombian GFR Calc Performed By: #### L 100.0100, L500.2500 ####[facility] [address] [place], [address] GAP 5 Normal 5-15 [facility] Comment on above: Performed By: #### L 100.0100, L500.2500 ####[facility] [address] [place], [address] GFR/1.73 sq M.predicted among non-blacks MDRD (S/P/Bld) [Vol rate/Area] 45 mL/min/{1.73_m2} Low >60 [facility] Comment on above: Result Comment: Non- GFR Calc Performed By: #### L 100.0100, L500.2500 ####[facility] [address] [place], [address] Glucose [Mass/Vol] 174 mg/dL High 74-106 [facility] Comment on above: Result Comment: Fast ing Glucose result greater than or equal to 126 mg/dLsuggests DIABETES MELLITUS per A.D.A. criteria. Performed By: #### L 100.0100, L500.2500 ####[facility] [address] [place], [address] Potassium [Moles/Vol] 4.1 mmol/L Normal 3.5-5.1 [facility] Comment on above: Performed By: #### L 100.0100, L500.2500 ####[facility] [address] [place], [address] Sodium [Moles/Vol] 136 mmol/L Normal 136-145 [facility] Comment on above: Performed By: #### L 100.0100, L500.2500 ####[facility] [address] [place], [address] Urea nitrogen [Mass/Vol] 32 mg/dL High 7-18 [facility] Comment on above: Performed By: #### L 100.0100, L500.2500 ####[facility] [address] [place], [address] Bedside Glucoseon 05-07-2024 FINGERSTICK GLU 116 mg/dL High 74-106 [facility] Comment on above: Result Comment: PANFILO GEMENT OF PATIENT CARE PER NURSING PROTOCOL Performed By: #### L 501.080 ####[facility] [address] [place], [address] FINGERSTICK GLU 182 mg/dL High 74-106 [facility] Comment on above: Result Comment: PANFILO GEMENT OF PATIENT CARE PER NURSING PROTOCOL Performed By: #### L 501.080 ####[facility] [address] [place], [address] CBC W/Diff, Automatedon 07- Absolute Lymph 0.71 X10 3/uL Low 0.83-4.51 [facility] Comment on above: Performed By: #### L 100.0100, L500.2500 ####[facility] [address] [place], [address] Absolute Neut 4.3 X10 3/uL Normal 2.0-7.7 [facility] Comment on above: Performed By: #### L 100.0100, L500.2500 ####[facility] [address] [place], [address] Basophils/100 WBC (Bld) 0.5 % Normal 0-1 [facility] Comment on above: Performed By: #### L 100.0100, L500.2500 ####[facility] [address] [place], [address] Eosinophils/100 WBC (Bld) 1.5 % Normal 0-5 [facility] Comment on above: Performed By: #### L 100.0100, L500.2500 ####[facility] [address] [place], [address] Erythrocyte distribution width (RBC) [Ratio] 12.3 % Normal 11.6-14.6 [facility] Comment on above: Performed By: #### L 100.0100, L500.2500 ####[facility] [address] [place], [address] Hematocrit (Bld) [Volume fraction] 32.7 % Low 37-47 [facility] Comment on above: Performed By: #### L 100.0100, L500.2500 ####[facility] [address] [place], [address] Hemoglobin (Bld) [Mass/Vol] 10.7 g/dL Low 12.0-15.0 [facility] Comment on above: Performed By: #### L 100.0100, L500.2500 ####[facility] [address] [place], [address] IG% 0.200 Normal 0.0-0.9 [facility] Comment on above: Result Comment: IG% - Immature Granulocytes (promyelocytes, myelocytes andmetamyelocytes) > 1% indicates that a LEFT SHIFT is Present. Performed By: #### L 100.0100, L500.2500 ####[facility] [address] [place], [address] Lymphocytes/100 WBC (Bld) 12.9 % Low 19-41 [facility] Comment on above: Performed By: #### L 100.0100, L500.2500 ####[facility] [address] [place], [address] MCH (RBC) [Entitic mass] 32.0 pg Normal 27.0-32.0 [facility] Comment on above: Performed By: #### L 100.0100, L500.2500 ####[facility] [address] [place], [address] MCHC (RBC) [Mass/Vol] 32.7 g/dL Normal 32-36 [facility] Comment on above: Performed By: #### L 100.0100, L500.2500 ####[facility] [address] [place], [address] MCV (RBC) [Entitic vol] 97.9 fL Normal 81-99 [facility] Comment on above: Performed By: #### L 100.0100, L500.2500 ####[facility] [address] [place], [address] Monocytes/100 WBC (Bld) 6.0 % Normal 0-10 [facility] Comment on above: Performed By: #### L 100.0100, L500.2500 ####[facility] [address] [place], [address] Neutrophils/100 WBC (Bld) 78.9 % High 47-70 [facility] Comment on above: Performed By: #### L 100.0100, L500.2500 ####[facility] [address] [place], [address] Nucleated RBC (Bld) [#/Vol] 0 10*3/uL Normal 0-5 [facility] Comment on above: Performed By: #### L 100.0100, L500.2500 ####[facility] [address] [place], [address] Platelet mean volume (Bld) [Entitic vol] 10.4 fL Normal 6.2-12.0 [facility] Comment on above: Performed By: #### L 100.0100, L500.2500 ####[facility] [address] [place], [address] Platelets (Bld) [#/Vol] 116 10*3/uL Low 150-450 [facility] Comment on above: Performed By: #### L 100.0100, L500.2500 ####[facility] [address] [place], [address] RBC (Bld) [#/Vol] 3.34 10*6/uL Low 4.2-5.4 [facility] Comment on above: Performed By: #### L 100.0100, L500.2500 ####[facility] [address] [place], [address] RDW SD 44.1 fl High 35.1-43.9 [facility] Comment on above: Performed By: #### L 100.0100, L500.2500 ####[facility] [address] [place], [address] WBC (Bld) [#/Vol] 5.5 10*3/uL Normal 4.4-11.0 [facility] Comment on above: Performed By: #### L 100.0100, L500.2500 ####[facility] [address] [place], [address] Prothrombin Time w/INRon INR Coag (PPP) [Relative time] 1.9 {INR} Normal [facility] Comment on above: Performed By: #### L 300.3900 ####[facility] [address] [place], [address] PT Coag (PPP) [Time] 21.7 s High 11.7-14.9 [facility] Comment on above: Performed By: #### L 300.3900 ####[facility] [address] [place], [address] Basic Metabolic Profile (BMP )on 05-06-2024 BUN/CRE 17.6 RATIO Normal 10-20 [facility] Comment on above: Performed By: #### L 500.2500, L100.0100 ####[facility] [address] [place], [address] CA,Total 8.3 mg/dL Low 8.5-10.1 [facility] Comment on above: Performed By: #### L 500.2500, L100.0100 ####[facility] [address] [place], [address] Chloride [Moles/Vol] 104 mmol/L Normal 98-107 [facility] Comment on above: Performed By: #### L 500.2500, L100.0100 ####[facility] [address] [place], [address] CO2 [Moles/Vol] 23.0 mmol/L Normal 21.0-32.0 [facility] Comment on above: Performed By: #### L 500.2500, L100.0100 ####[facility] [address] [place], [address] Creatinine [Mass/Vol] 1.82 mg/dL High 0.55-1.02 [facility] Comment on above: Result Comment: The validity of the calculated GFR GFRAA in patients over70 years has not been determined. Clinical correlation isessential. Performed By: #### L 500.2500, L100.0100 ####[facility] [address] [place], [address] ECRCL 29.58 ml/min Normal [facility] Comment on above: Performed By: #### L 500.2500, L100.0100 ####[facility] [address] [place], [address] EST GFR - AA 35 mL/min Low >60 [facility] Comment on above: Result Comment: Afri can Colombian GFR Calc Performed By: #### L 500.2500, L100.0100 ####[facility] [address] [place], [address] GAP 7 Normal 5-15 [facility] Comment on above: Performed By: #### L 500.2500, L100.0100 ####[facility] [address] [place], [address] GFR/1.73 sq M.predicted among non-blacks MDRD (S/P/Bld) [Vol rate/Area] 29 mL/min/{1.73_m2} Low >60 [facility] Comment on above: Result Comment: Non- GFR Calc Performed By: #### L 500.2500, L100.0100 ####[facility] [address] [place], [address] Glucose [Mass/Vol] 108 mg/dL High 74-106 [facility] Comment on above: Result Comment: Fast ing Glucose result from 100 to 125 mg/dLsuggests IMPAIRED HOMEOSTASIS per A.D.A. criteria. Performed By: #### L 500.2500, L100.0100 ####[facility] [address] [place], [address] Potassium [Moles/Vol] 3.9 mmol/L Normal 3.5-5.1 [facility] Comment on above: Performed By: #### L 500.2500, L100.0100 ####[facility] [address] [place], [address] Sodium [Moles/Vol] 134 mmol/L Low 136-145 [facility] Comment on above: Performed By: #### L 500.2500, L100.0100 ####[facility] [address] [place], [address] Urea nitrogen [Mass/Vol] 32 mg/dL High 7-18 [facility] Comment on above: Performed By: #### L 500.2500, L100.0100 ####[facility] [address] [place], [address] Bedside Glucoseon 05-06-2023 FINGERSTICK GLU 161 mg/dL High 74-106 [facility] Comment on above: Result Comment: PANFILO GEMENT OF PATIENT CARE PER NURSING PROTOCOL Performed By: #### L 501.080 ####[facility] [address] [place], [address] FINGERSTICK GLU 132 mg/dL High 74-106 [facility] Comment on above: Result Comment: PANFILO GEMENT OF PATIENT CARE PER NURSING PROTOCOL Performed By: #### L 501.080 ####[facility] [address] [place], [address] FINGERSTICK GLU 161 mg/dL High 74-106 [facility] Comment on above: Result Comment: PANFILO GEMENT OF PATIENT CARE PER NURSING PROTOCOL Performed By: #### L 501.080 ####[facility] [address] [place], [address] FINGERSTICK GLU 112 mg/dL High 74-106 [facility] Comment on above: Result Comment: PANFILO GEMENT OF PATIENT CARE PER NURSING PROTOCOL Performed By: #### L 501.080 ####[facility] [address] [place], [address] CBC W/Diff, Automatedon 07- Absolute Lymph 1.05 X10 3/uL Normal 0.83-4.51 [facility] Comment on above: Performed By: #### L 500.2500, L100.0100 ####[facility] [address] [place], [address] Absolute Neut 4.2 X10 3/uL Normal 2.0-7.7 [facility] Comment on above: Performed By: #### L 500.2500, L100.0100 ####[facility] [address] [place], [address] Basophils/100 WBC (Bld) 0.7 % Normal 0-1 [facility] Comment on above: Performed By: #### L 500.2500, L100.0100 ####[facility] [address] [place], [address] Eosinophils/100 WBC (Bld) 4.1 % Normal 0-5 [facility] Comment on above: Performed By: #### L 500.2500, L100.0100 ####[facility] [address] [place], [address] Erythrocyte distribution width (RBC) [Ratio] 12.4 % Normal 11.6-14.6 [facility] Comment on above: Performed By: #### L 500.2500, L100.0100 ####[facility] [address] [place], [address] Hematocrit (Bld) [Volume fraction] 33.3 % Low 37-47 [facility] Comment on above: Performed By: #### L 500.2500, L100.0100 ####[facility] [address] [place], [address] Hemoglobin (Bld) [Mass/Vol] 11.1 g/dL Low 12.0-15.0 [facility] Comment on above: Performed By: #### L 500.2500, L100.0100 ####[facility] [address] [place], [address] IG% 0.300 Normal 0.0-0.9 [facility] Comment on above: Result Comment: IG% - Immature Granulocytes (promyelocytes, myelocytes andmetamyelocytes) > 1% indicates that a LEFT SHIFT is Present. Performed By: #### L 500.2500, L100.0100 ####[facility] [address] [place], [address] Lymphocytes/100 WBC (Bld) 17.4 % Low 19-41 [facility] Comment on above: Performed By: #### L 500.2500, L100.0100 ####[facility] [address] [place], [address] MCH (RBC) [Entitic mass] 32.3 pg High 27.0-32.0 [facility] Comment on above: Performed By: #### L 500.2500, L100.0100 ####[facility] [address] [place], [address] MCHC (RBC) [Mass/Vol] 33.3 g/dL Normal 32-36 [facility] Comment on above: Performed By: #### L 500.2500, L100.0100 ####[facility] [address] [place], [address] MCV (RBC) [Entitic vol] 96.8 fL Normal 81-99 [facility] Comment on above: Performed By: #### L 500.2500, L100.0100 ####[facility] [address] [place], [address] Monocytes/100 WBC (Bld) 7.8 % Normal 0-10 [facility] Comment on above: Performed By: #### L 500.2500, L100.0100 ####[facility] [address] [place], [address] Neutrophils/100 WBC (Bld) 69.7 % Normal 47-70 [facility] Comment on above: Performed By: #### L 500.2500, L100.0100 ####[facility] [address] [place], [address] Nucleated RBC (Bld) [#/Vol] 0 10*3/uL Normal 0-5 [facility] Comment on above: Performed By: #### L 500.2500, L100.0100 ####[facility] [address] [place], [address] Platelet mean volume (Bld) [Entitic vol] 10.1 fL Normal 6.2-12.0 [facility] Comment on above: Performed By: #### L 500.2500, L100.0100 ####[facility] [address] [place], [address] Platelets (Bld) [#/Vol] 99 10*3/uL Low 150-450 [facility] Comment on above: Performed By: #### L 500.2500, L100.0100 ####[facility] [address] [place], [address] RBC (Bld) [#/Vol] 3.44 10*6/uL Low 4.2-5.4 [facility] Comment on above: Performed By: #### L 500.2500, L100.0100 ####[facility] [address] [place], [address] RDW SD 43.8 fl Normal 35.1-43.9 [facility] Comment on above: Performed By: #### L 500.2500, L100.0100 ####[facility] [address] [place], [address] WBC (Bld) [#/Vol] 6.0 10*3/uL Normal 4.4-11.0 [facility] Comment on above: Performed By: #### L 500.2500, L100.0100 ####[facility] [address] [place], [address] CNPNon 07-12-2024 [place] Telephone (INTMWS) NEDAKEISHA ([id number]) 1945 F Date Time Provider Department 05/06/24 JOON LOPEZ INTMWS During your visit today, we recorded the following information about you: Roopa Edgar RN 05/06/2024 2:37 PM Signed Starr with [facility] HH calls to ask if provider would be willing to follow HH orders for SN, PT, OT, and SW following discharge from [facility] for fall with contusion/laceration of scalp, lumbar strain, and UTI. HH plans to see patient ThursdayMay 10 after discharge and asking for ok for Delay in SOC as well. Please review and advise, VLAD Reyna Terri, APRN.[employer] 05/06/2024 4:16 PM Signed OK for HHC. She has a PCP visit 06/22/2024, does she need to be seen sooner for hospital discharge follow up? Schedule appt if so. Sylwia Chang LPN 05/09/2024 10:00 AM Signed Starr with [facility] HH aware of Provider message. Denies need [...] Date Reviewed: 03/22/2024 Reviewed by: Whitney Hammond APRN.RADAR ENGINEERING TEACHER - Fully Assessed Reason for Visit: Orders [...] hours as needed for wheezing/shortness of breath. 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 ([facility] pulmonology) - blood sugar diagnostic (BLOOD GLUCOSE [...] Encounter Status:Closed by SYLWIA CHANG on 05/09/24 Normal [facility] Urine Cultureon 05-06-2024 URC Normal [facility] Comment on above: Performed By: #### M 100.2200, L400.0001 ####[facility] [address] [place], [address] Bedside Glucoseon 05-05-2024 FINGERSTICK GLU 120 mg/dL High 74-106 [facility] Comment on above: Result Comment: PANFILO GEMENT OF PATIENT CARE PER NURSING PROTOCOL Performed By: #### L 501.080 ####[facility] [address] [place], [address] FINGERSTICK GLU 158 mg/dL High 74-106 [facility] Comment on above: Result Comment: PANFILO GEMENT OF PATIENT CARE PER NURSING PROTOCOL Performed By: #### L 501.080 ####[facility] [address] [place], [address] FINGERSTICK GLU 151 mg/dL High 74-106 [facility] Comment on above: Result Comment: PANFILO GEMENT OF PATIENT CARE PER NURSING PROTOCOL Performed By: #### L 501.080 ####[facility] [address] [place], [address] FINGERSTICK GLU 84 mg/dL Normal 74-106 [facility] Comment on above: Result Comment: PANFILO GEMENT OF PATIENT CARE PER NURSING PROTOCOL Performed By: #### L 501.080 ####[facility] [address] [place], [address] FINGERSTICK GLU 137 mg/dL High 74-106 [facility] Comment on above: Result Comment: PANFILO GEMENT OF PATIENT CARE PER NURSING PROTOCOL Performed By: #### L 501.080 ####[facility] [address] [place], [address] CBC W/Diff, Automatedon 04-25 Absolute Lymph 0.49 X10 3/uL Low 0.83-4.51 [facility] Comment on above: Performed By: #### L 300.3900, L500.4050, L100.0100 ####[facility] [address] [place], [address] Absolute Neut 8.7 X10 3/uL High 2.0-7.7 [facility] Comment on above: Performed By: #### L 300.3900, L500.4050, L100.0100 ####[facility] [address] [place], [address] Basophils/100 WBC (Bld) 0.4 % Normal 0-1 [facility] Comment on above: Performed By: #### L 300.3900, L500.4050, L100.0100 ####[facility] [address] [place], [address] Eosinophils/100 WBC (Bld) 0.8 % Normal 0-5 [facility] Comment on above: Performed By: #### L 300.3900, L500.4050, L100.0100 ####[facility] [address] [place], [address] Erythrocyte distribution width (RBC) [Ratio] 12.5 % Normal 11.6-14.6 [facility] Comment on above: Performed By: #### L 300.3900, L500.4050, L100.0100 ####[facility] [address] [place], [address] Hematocrit (Bld) [Volume fraction] 37.3 % Normal 37-47 [facility] Comment on above: Performed By: #### L 300.3900, L500.4050, L100.0100 ####[facility] [address] [place], [address] Hemoglobin (Bld) [Mass/Vol] 12.5 g/dL Normal 12.0-15.0 [facility] Comment on above: Performed By: #### L 300.3900, L500.4050, L100.0100 ####[facility] [address] [place], [address] IG% 0.500 Normal 0.0-0.9 [facility] Comment on above: Result Comment: IG% - Immature Granulocytes (promyelocytes, myelocytes andmetamyelocytes) > 1% indicates that a LEFT SHIFT is Present. Performed By: #### L 300.3900, L500.4050, L100.0100 ####[facility] [address] [place], [address] Lymphocytes/100 WBC (Bld) 4.8 % Low 19-41 [facility] Comment on above: Performed By: #### L 300.3900, L500.4050, L100.0100 ####[facility] [address] [place], [address] MCH (RBC) [Entitic mass] 32.4 pg High 27.0-32.0 [facility] Comment on above: Performed By: #### L 300.3900, L500.4050, L100.0100 ####[facility] [address] [place], [address] MCHC (RBC) [Mass/Vol] 33.5 g/dL Normal 32-36 [facility] Comment on above: Performed By: #### L 300.3900, L500.4050, L100.0100 ####[facility] [address] [place], [address] MCV (RBC) [Entitic vol] 96.6 fL Normal 81-99 [facility] Comment on above: Performed By: #### L 300.3900, L500.4050, L100.0100 ####[facility] [address] [place], [address] Monocytes/100 WBC (Bld) 7.5 % Normal 0-10 [facility] Comment on above: Performed By: #### L 300.3900, L500.4050, L100.0100 ####[facility] [address] [place], [address] Neutrophils/100 WBC (Bld) 86.0 % High 47-70 [facility] Comment on above: Performed By: #### L 300.3900, L500.4050, L100.0100 ####[facility] [address] [place], [address] Nucleated RBC (Bld) [#/Vol] 0 10*3/uL Normal 0-5 [facility] Comment on above: Performed By: #### L 300.3900, L500.4050, L100.0100 ####[facility] [address] [place], [address] Platelet mean volume (Bld) [Entitic vol] 9.8 fL Normal 6.2-12.0 [facility] Comment on above: Performed By: #### L 300.3900, L500.4050, L100.0100 ####[facility] [address] [place], [address] Platelets (Bld) [#/Vol] 110 10*3/uL Low 150-450 [facility] Comment on above: Performed By: #### L 300.3900, L500.4050, L100.0100 ####[facility] [address] [place], [address] RBC (Bld) [#/Vol] 3.86 10*6/uL Low 4.2-5.4 [facility] Comment on above: Performed By: #### L 300.3900, L500.4050, L100.0100 ####[facility] [address] [place], [address] RDW SD 44.3 fl High 35.1-43.9 [facility] Comment on above: Performed By: #### L 300.3900, L500.4050, L100.0100 ####[facility] [address] [place], [address] WBC (Bld) [#/Vol] 10.1 10*3/uL Normal 4.4-11.0 [facility] Comment on above: Performed By: #### L 300.3900, L500.4050, L100.0100 ####[facility] [address] [place], [address] Comprehensive Metabolic Prof ilon 05-05-2024 Albumin [Mass/Vol] 2.9 g/dL Low 3.2-5.0 [facility] Comment on above: Performed By: #### L 300.3900, L500.4050, L100.0100 ####[facility] [address] [place], [address] Albumin/Globulin [Mass ratio] 0.8 {ratio} Low 0.9-2.4 [facility] Comment on above: Performed By: #### L 300.3900, L500.4050, L100.0100 ####[facility] [address] [place], [address] ALK P 75 U/L Normal 45-117 [facility] Comment on above: Performed By: #### L 300.3900, L500.4050, L100.0100 ####[facility] [address] [place], [address] ALT [Catalytic activity/Vol] 9 U/L Low 13-56 [facility] Comment on above: Performed By: #### L 300.3900, L500.4050, L100.0100 ####[facility] [address] [place], [address] AST [Catalytic activity/Vol] 19 U/L Normal 15-37 [facility] Comment on above: Performed By: #### L 300.3900, L500.4050, L100.0100 ####[facility] [address] [place], [address] Bilirubin [Mass/Vol] 1.70 mg/dL High 0.20-1.00 [facility] Comment on above: Result Comment: For patients on eltrombopag therapy, use of Dimension Peterman TBIL is not recommended. Performed By: #### L 300.3900, L500.4050, L100.0100 ####[facility] [address] [place], [address] BUN/CRE 15.2 RATIO Normal 10-20 [facility] Comment on above: Performed By: #### L 300.3900, L500.4050, L100.0100 ####[facility] [address] [place], [address] CA,Total 8.5 mg/dL Normal 8.5-10.1 [facility] Comment on above: Performed By: #### L 300.3900, L500.4050, L100.0100 ####[facility] [address] [place], [address] Chloride [Moles/Vol] 106 mmol/L Normal 98-107 [facility] Comment on above: Performed By: #### L 300.3900, L500.4050, L100.0100 ####[facility] [address] [place], [address] CO2 [Moles/Vol] 25.0 mmol/L Normal 21.0-32.0 [facility] Comment on above: Performed By: #### L 300.3900, L500.4050, L100.0100 ####[facility] [address] [place], [address] Creatinine [Mass/Vol] 1.25 mg/dL High 0.55-1.02 [facility] Comment on above: Result Comment: The validity of the calculated GFR GFRAA in patients over70 years has not been determined. Clinical correlation isessential. Performed By: #### L 300.3900, L500.4050, L100.0100 ####[facility] [address] [place], [address] ECRCL 43.02 ml/min Normal [facility] Comment on above: Performed By: #### L 300.3900, L500.4050, L100.0100 ####[facility] [address] [place], [address] EST GFR - AA 53 mL/min Low >60 [facility] Comment on above: Result Comment: Afri can Colombian GFR Calc Performed By: #### L 300.3900, L500.4050, L100.0100 ####[facility] [address] [place], [address] GAP 7 Normal 5-15 [facility] Comment on above: Performed By: #### L 300.3900, L500.4050, L100.0100 ####[facility] [address] [place], [address] GFR/1.73 sq M.predicted among non-blacks MDRD (S/P/Bld) [Vol rate/Area] 44 mL/min/{1.73_m2} Low >60 [facility] Comment on above: Result Comment: Non- GFR Calc Performed By: #### L 300.3900, L500.4050, L100.0100 ####[facility] [address] [place], [address] Globulin (S) [Mass/Vol] 3.7 g/dL Normal 2.2-4.2 [facility] Comment on above: Performed By: #### L 300.3900, L500.4050, L100.0100 ####[facility] [address] [place], [address] Glucose [Mass/Vol] 110 mg/dL High 74-106 [facility] Comment on above: Result Comment: Fast ing Glucose result from 100 to 125 mg/dLsuggests IMPAIRED HOMEOSTASIS per A.D.A. criteria. Performed By: #### L 300.3900, L500.4050, L100.0100 ####[facility] [address] [place], [address] Potassium [Moles/Vol] 3.8 mmol/L Normal 3.5-5.1 [facility] Comment on above: Performed By: #### L 300.3900, L500.4050, L100.0100 ####[facility] [address] [place], [address] Sodium [Moles/Vol] 138 mmol/L Normal 136-145 [facility] Comment on above: Performed By: #### L 300.3900, L500.4050, L100.0100 ####[facility] [address] [place], [address] T PROT 6.6 g/dL Normal 6.4-8.2 [facility] Comment on above: Performed By: #### L 300.3900, L500.4050, L100.0100 ####[facility] [address] [place], [address] Urea nitrogen [Mass/Vol] 19 mg/dL High 7-18 [facility] Comment on above: Performed By: #### L 300.3900, L500.4050, L100.0100 ####[facility] [address] [place], [address] Prothrombin Time w/INRon INR Coag (PPP) [Relative time] 2.2 {INR} Normal [facility] Comment on above: Performed By: #### L 300.3900, L500.4050, L100.0100 ####[facility] [address] [place], [address] PT Coag (PPP) [Time] 24.7 s High 11.7-14.9 [facility] Comment on above: Performed By: #### L 300.3900, L500.4050, L100.0100 ####[facility] [address] [place], [address] Basic Metabolic Profile (BMP )on 05-04-2024 BUN/CRE 12.0 RATIO Normal 10-20 [facility] Comment on above: Performed By: #### L 500.2500, L300.3900, L100.0100 ####[facility] [address] [place], [address] CA,Total 9.7 mg/dL Normal 8.5-10.1 [facility] Comment on above: Performed By: #### L 500.2500, L300.3900, L100.0100 ####[facility] [address] [place], [address] Chloride [Moles/Vol] 100 mmol/L Normal 98-107 [facility] Comment on above: Performed By: #### L 500.2500, L300.3900, L100.0100 ####[facility] [address] [place], [address] CO2 [Moles/Vol] 27.0 mmol/L Normal 21.0-32.0 [facility] Comment on above: Performed By: #### L 500.2500, L300.3900, L100.0100 ####[facility] [address] [place], [address] Creatinine [Mass/Vol] 1.00 mg/dL Normal 0.55-1.02 [facility] Comment on above: Result Comment: The validity of the calculated GFR GFRAA in patients over70 years has not been determined. Clinical correlation isessential. Performed By: #### L 500.2500, L300.3900, L100.0100 ####[facility] [address] [place], [address] ECRCL 52.81 ml/min Normal [facility] Comment on above: Performed By: #### L 500.2500, L300.3900, L100.0100 ####[facility] [address] [place], [address] EST GFR - AA 69 mL/min Normal >60 [facility] Comment on above: Result Comment: Afri can Colombian GFR Calc Performed By: #### L 500.2500, L300.3900, L100.0100 ####[facility] [address] [place], [address] GAP 8 Normal 5-15 [facility] Comment on above: Performed By: #### L 500.2500, L300.3900, L100.0100 ####[facility] [address] [place], [address] GFR/1.73 sq M.predicted among non-blacks MDRD (S/P/Bld) [Vol rate/Area] 57 mL/min/{1.73_m2} Low >60 [facility] Comment on above: Result Comment: Non- GFR Calc Performed By: #### L 500.2500, L300.3900, L100.0100 ####[facility] [address] [place], [address] Glucose [Mass/Vol] 168 mg/dL High 74-106 [facility] Comment on above: Result Comment: Fast ing Glucose result greater than or equal to 126 mg/dLsuggests DIABETES MELLITUS per A.D.A. criteria. Performed By: #### L 500.2500, L300.3900, L100.0100 ####[facility] [address] [place], [address] Potassium [Moles/Vol] 3.6 mmol/L Normal 3.5-5.1 [facility] Comment on above: Performed By: #### L 500.2500, L300.3900, L100.0100 ####[facility] [address] [place], [address] Sodium [Moles/Vol] 135 mmol/L Low 136-145 [facility] Comment on above: Performed By: #### L 500.2500, L300.3900, L100.0100 ####[facility] [address] [place], [address] Urea nitrogen [Mass/Vol] 12 mg/dL Normal 7-18 [facility] Comment on above: Performed By: #### L 500.2500, L300.3900, L100.0100 ####[facility] [address] [place], [address] Brain/Head without Contrasto n 05-04-2023 Brain/Head without Contrast Normal [facility] CBC W/Diff, Automatedon 04-25 0-2023 Absolute Lymph 0.79 X10 3/uL Low 0.83-4.51 [facility] Comment on above: Performed By: #### L 500.2500, L300.3900, L100.0100 ####[facility] [address] [place], [address] Absolute Neut 7.5 X10 3/uL Normal 2.0-7.7 [facility] Comment on above: Performed By: #### L 500.2500, L300.3900, L100.0100 ####[facility] [address] [place], [address] Basophils/100 WBC (Bld) 0.5 % Normal 0-1 [facility] Comment on above: Performed By: #### L 500.2500, L300.3900, L100.0100 ####[facility] [address] [place], [address] Eosinophils/100 WBC (Bld) 0.1 % Normal 0-5 [facility] Comment on above: Performed By: #### L 500.2500, L300.3900, L100.0100 ####[facility] [address] [place], [address] Erythrocyte distribution width (RBC) [Ratio] 12.4 % Normal 11.6-14.6 [facility] Comment on above: Performed By: #### L 500.2500, L300.3900, L100.0100 ####[facility] [address] [place], [address] Hematocrit (Bld) [Volume fraction] 44.2 % Normal 37-47 [facility] Comment on above: Performed By: #### L 500.2500, L300.3900, L100.0100 ####[facility] [address] [place], [address] Hemoglobin (Bld) [Mass/Vol] 15.1 g/dL High 12.0-15.0 [facility] Comment on above: Performed By: #### L 500.2500, L300.3900, L100.0100 ####[facility] [address] [place], [address] IG% 0.500 Normal 0.0-0.9 [facility] Comment on above: Result Comment: IG% - Immature Granulocytes (promyelocytes, myelocytes andmetamyelocytes) > 1% indicates that a LEFT SHIFT is Present. Performed By: #### L 500.2500, L300.3900, L100.0100 ####[facility] [address] [place], [address] Lymphocytes/100 WBC (Bld) 8.6 % Low 19-41 [facility] Comment on above: Performed By: #### L 500.2500, L300.3900, L100.0100 ####[facility] [address] [place], [address] MCH (RBC) [Entitic mass] 31.9 pg Normal 27.0-32.0 [facility] Comment on above: Performed By: #### L 500.2500, L300.3900, L100.0100 ####[facility] [address] [place], [address] MCHC (RBC) [Mass/Vol] 34.2 g/dL Normal 32-36 [facility] Comment on above: Performed By: #### L 500.2500, L300.3900, L100.0100 ####[facility] [address] [place], [address] MCV (RBC) [Entitic vol] 93.2 fL Normal 81-99 [facility] Comment on above: Performed By: #### L 500.2500, L300.3900, L100.0100 ####[facility] [address] [place], [address] Monocytes/100 WBC (Bld) 8.0 % Normal 0-10 [facility] Comment on above: Performed By: #### L 500.2500, L300.3900, L100.0100 ####[facility] [address] [place], [address] Neutrophils/100 WBC (Bld) 82.3 % High 47-70 [facility] Comment on above: Performed By: #### L 500.2500, L300.3900, L100.0100 ####[facility] [address] [place], [address] Nucleated RBC (Bld) [#/Vol] 0 10*3/uL Normal 0-5 [facility] Comment on above: Performed By: #### L 500.2500, L300.3900, L100.0100 ####[facility] [address] [place], [address] Platelet mean volume (Bld) [Entitic vol] 9.6 fL Normal 6.2-12.0 [facility] Comment on above: Performed By: #### L 500.2500, L300.3900, L100.0100 ####[facility] [address] [place], [address] Platelets (Bld) [#/Vol] 128 10*3/uL Low 150-450 [facility] Comment on above: Performed By: #### L 500.2500, L300.3900, L100.0100 ####[facility] [address] [place], [address] RBC (Bld) [#/Vol] 4.74 10*6/uL Normal 4.2-5.4 [facility] Comment on above: Performed By: #### L 500.2500, L300.3900, L100.0100 ####[facility] [address] [place], [address] RDW SD 42.7 fl Normal 35.1-43.9 [facility] Comment on above: Performed By: #### L 500.2500, L300.3900, L100.0100 ####[facility] [address] [place], [address] WBC (Bld) [#/Vol] 9.2 10*3/uL Normal 4.4-11.0 [facility] Comment on above: Performed By: #### L 500.2500, L300.3900, L100.0100 ####[facility] [address] [place], [address] Chest 1 View (Portable)on Chest 1 View (Portable) Normal [facility] Chest without Contraston Chest without Contrast Normal [facility] Emergency Department Summary on 05-04-2024 Emergency Department Summary Normal [facility] H AND P Exam - Hospitaliston 05-04-2024 H&P Exam - Hospitalist Normal [facility] Prothrombin Time w/INRon INR Coag (PPP) [Relative time] 1.9 {INR} Normal [facility] Comment on above: Performed By: #### L 500.2500, L300.3900, L100.0100 ####[facility] [address] [place], [address] PT Coag (PPP) [Time] 22.0 s High 11.7-14.9 [facility] Comment on above: Performed By: #### L 500.2500, L300.3900, L100.0100 ####[facility] [address] [place], [address] Spine Cervical without Contr ason 05-04-2024 Spine Cervical without Contras Normal [facility] Spine Lumbar without Contras ton 05-04-2024 Spine Lumbar without Contrast Normal [facility] Urinalysis, Completeon 05-04 BACTERIA 3+ /hpf Normal None Seen [facility] Comment on above: Order Comment: RUDI TER SPECIMEN Performed By: #### M 100.2200, L400.0001 ####[facility] [address] [place], [address] EPI,SQUAMOUS 0-5 SEEN Normal 5-10 [facility] Comment on above: Order Comment: RUDI TER SPECIMEN Performed By: #### M 100.2200, L400.0001 ####[facility] [address] [place], [address] EPI,TRANSITION 0-5 SEEN Normal 0-5 [facility] Comment on above: Order Comment: RUDI TER SPECIMEN Performed By: #### M 100.2200, L400.0001 ####[facility] [address] [place], [address] RBC 50-100 SEEN Normal 0-5 [facility] Comment on above: Order Comment: RUDI TER SPECIMEN Performed By: #### M 100.2200, L400.0001 ####[facility] [address] [place], [address] WBC >100 SEEN Normal 0-5 [facility] Comment on above: Order Comment: RUDI TER SPECIMEN Performed By: #### M 100.2200, L400.0001 ####[facility] [address] [place], [address] Mucus Ql (Urine sed) 0 SEEN Normal [facility] Comment on above: Order Comment: RUDI TER SPECIMEN Performed By: #### M 100.2200, L400.0001 ####[facility] [address] [place], [address] BACTERIA 3+ /hpf Normal None Seen [facility] Comment on above: Order Comment: COLLE CTOR TO SPECIFY Performed By: #### L 400.0001 ####[facility] [address] [place], [address] EPI,SQUAMOUS 10-25 SEEN Normal 5-10 [facility] Comment on above: Order Comment: COLLE CTOR TO SPECIFY Performed By: #### L 400.0001 ####[facility] [address] [place], [address] RBC > 100 SEEN Normal 0-5 [facility] Comment on above: Order Comment: CHAYA CTOR TO SPECIFY Performed By: #### L 400.0001 ####[facility] [address] [place], [address] WBC >100 SEEN Normal 0-5 [facility] Comment on above: Order Comment: COLLE CTOR TO SPECIFY Performed By: #### L 400.0001 ####[facility] [address] [place], [address] Cardiology Visit Reporton Cardiology Visit Report Normal [facility] Prothrombin Time w/INRon INR Coag (PPP) [Relative time] 3.6 {INR} Normal [facility] Comment on above: Performed By: #### L 300.3900 ####[facility] [address] [place], [address] PT Coag (PPP) [Time] 36.0 s High 11.7-14.9 [facility] Comment on above: Performed By: #### L 300.3900 ####[facility] [address] [place], [address] Laxmi 04-06-2024 CNPMary Beth Telephone (INTMWS) KEISHA RED ([id number]) 1945 F Date Time Provider Department 04/06/24 WHITNEY HAMMOND INTMWS During your visit today, we recorded the following information about you: Whitney Hammond APRN.CNP 04/06/2024 2:37 PM Signed Labs show vitamin b12, magnesium and vitamin d are low. Please let her know I sent in daily supplements for her to start to replace these. ALICE Klein Barbara, LPN 04/06/2024 2:39 PM Signed TC to pt[place] LM to call office, ask for triage nurse to get results. BOONE Sargent Gillian, OCCA 04/07/2024 9:24 AM Signed TC no answer. Left VM to return call. CLAUDIA Rutledge Beth, LPN 04/11/2024 1:11 PM Signed Patient returned call and went over results, notes from Whitney Hammond SUBSTATION SUPERVISOR with understanding. Aware rx x 3 were [...] Date Reviewed: 03/22/2024 Reviewed by: Whitney Hammond APRN.RADAR ENGINEERING TEACHER - Fully Assessed Reason for Visit: Results [95] Primary Visit Diagnosis:B12 deficiency [E53.8] Other Visit Diagnoses:Hypomagnes emia [E83.42] Vitamin D deficiency [E55.9] Order(s):Cholecalcif cara, Vitamin D3, 50 mcg (2,000 unit) capTake [...] hours as needed for wheezing/shortness of breath. 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 Normal [facility] 25-hydroxyvitamin D3 [Mass/V ol]on 05-28-2024 Interpretation and review of laboratory results Abnormal [facility] The reference range interval was based on an analysis of samples from healthy adults and may not pertain to children from 0-18 years old. [facility] CBC W Auto Differential pane l (Bld)on 03-22-2024 Basophils (Bld) [#/Vol] 0.06 10*3/uL [facility] Basophils/100 WBC (Bld) 1.1 % C [facility] Differential cell count method Nom (Bld) Auto [facility] Eosinophils (Bld) [#/Vol] 0.26 10*3/uL [facility] Eosinophils/100 WBC (Bld) 4.7 % [facility] Erythrocyte distribution width (RBC) [Ratio] 12.5 % 11.5 - 15.0 % [facility] Hematocrit (Bld) [Volume fraction] 41.6 % 36.0 - 46.0 % [facility] Hemoglobin (Bld) [Mass/Vol] 13.6 g/dL 11.5 - 15.5 g/dL [facility] Immature granulocytes (Bld) [#/Vol] 0.03 10*3/uL [facility] Immature granulocytes/100 WBC (Bld) 0.5 % [facility] Interpretation and review of laboratory results Abnormal [facility] Lymphocytes (Bld) [#/Vol] 1.35 10*3/uL [facility] Lymphocytes/100 WBC (Bld) 24.6 % [facility] MCH (RBC) [Entitic mass] 32.5 pg 26. 0 - 34.0 pg [facility] MCHC (RBC) [Mass/Vol] 32.7 g/dL 30.5 - 36.0 g/dL [facility] MCV (RBC) [Entitic vol] 99.3 fL 80.0 - 100.0 fL [facility] Monocytes (Bld) [#/Vol] 0.40 10*3/uL [facility] Monocytes/100 WBC (Bld) 7.3 % C [facility] Neutrophils (Bld) [#/Vol] 3.39 10*3/uL [facility] Neutrophils/100 WBC (Bld) 61.8 % [facility] Nucleated RBC (Bld) [#/Vol] [facility] Nucleated RBC/100 WBC (Bld) [Ratio] 0.0 % /100 WBC [facility] Platelet mean volume (Bld) [Entitic vol] 10.7 fL 9.0 - 12.7 fL [facility] Platelets (Bld) [#/Vol] 125 10*3/uL Low [facility] RBC (Bld) [#/Vol] 4.19 10*6/uL 3.90 - 5.2 0 m/uL [facility] WBC (Bld) [#/Vol] 5.49 10*3/uL [facility] Cobalamin (Vitamin B12) [Mas s/Vol]on 03-22-2024 Interpretation and review of laboratory results Abnormal [facility] Comprehensive metabolic 2000 panelon 03-22-2024 Albumin [Mass/Vol] 4.2 g/dL 3.9 - 4.9 g/dL [facility] ALP [Catalytic activity/Vol] 89 U/L 34 - 123 U/L [facility] ALT [Catalytic activity/Vol] 13 U/L 7 - 38 U/L [facility] Anion gap [Moles/Vol] 12 mmol/L 9 - 18 mmol/L [facility] AST [Catalytic activity/Vol] 20 U/L 13 - 35 U/L [facility] Bilirubin [Mass/Vol] 0.5 mg/dL 0.2 - 1 .3 mg/dL [facility] Calcium [Mass/Vol] 9.7 mg/dL 8.5 - 10. 2 mg/dL [facility] Chloride [Moles/Vol] 103 mmol/L 97 - 10 5 mmol/L [facility] CO2 [Moles/Vol] 25 mmol/L 22 - 30 mmol/L [facility] Creatinine [Mass/Vol] 0.84 mg/dL 0.58 - 0.96 mg/dL [facility] GFR/1.73 sq M.predicted among non-blacks MDRD (S/P/Bld) [Vol rate/Area] 72 mL/min/{1.73_m2} - PINF [facility] Comment on above: Estimated Glomerular Filtration Rate [...] 163 mg/dL High 74 - 99 mg/dL [facility] Comment on above: The [place] Diabete s Association (ADA) provides guidance for [...] Standards of Medical Care in Diabetes 2016, [place] [employer]. Diabetes Care. 2016.39(Suppl 1). Potassium [Moles/Vol] 4.0 mmol/L 3.7 - 5.1 mmol/L [facility] Protein [Mass/Vol] 7.0 g/dL 6.3 - 8.0 g/dL [facility] Sodium [Moles/Vol] 140 mmol/L 136 - 144 mmol/L [facility] Urea nitrogen [Mass/Vol] 10 mg/dL 7 - 21 mg/d L [facility] HbA1c (Bld)on 03-22-2024 Average glucose Estimated from glycated hemoglobin (Bld) [Mass/Vol] 148 mg/dL [facility] Comment on above: eAG: (Estimated aver age glucose) is a calculated value from HgbA1c and is tax compliance representative of the average blood glucose level in the last 2-3 month period. HbA1c (Bld) [Mass fraction] 6.8 % High 4.3 - 5.6 % [facility] Comment on above: [place] Diabetes As sociation guidelines indicate that patients with HgbA1c in the range 5.7-6.4% are at increased risk for development of diabetes, and intervention by lifestyle modification may be beneficial. HgbA1c greater or equal to 6.5% is considered diagnostic of diabetes. Interpretation and review of laboratory results Abnormal [facility] MAGNESIUMon 03-22-2024 Magnesium [Mass/Vol] 1.4 mg/dL Low 1.7 - 2 .3 mg/dL [facility] No Panel Informationon 03-22 [facility] Interpretation and review of laboratory results Abnormal [facility] PT panel Coag (PPP)on 2023 INR Coag (PPP) [Relative time] 3.3 {INR} High 0.9 - 1.3 [facility] Comment on above: Vitamin K Antagonist (VKA) Therapeutic Range: INR 2 to 3 (Target INR of 2.5) Note: For patients treated with VKA drugs, such as warfarin, the [place] [employer] 2012 Guideline recommends [...] Chest 2012, 141:7S-47S Chidi RA, et al. [facility] 2017, 70: 252-289 Interpretation and review of laboratory results Abnormal [facility] PT Coag (PPP) [Time] 31.2 s [facility] THYROID STIMULATING HORMONEo n 03-22-2024 TSH Qn 1.240 m[IU]/L [facility] TSH Qnon 03-22-2024 Interpretation and review of laboratory results Normal [facility] VITAMIN B12on 03-22-2024 Cobalamin (Vitamin B12) [Mass/Vol] 219 pg/mL Low 232 - 1245 pg/mL [facility] VITAMIN D 25 HYDROXYon 03-22 25-hydroxyvitamin D3 [Mass/Vol] 10.7 ng/mL Low 31.0 - 80.0 ng/mL [facility] Comment on above: Classification of 25 [place] Vitamin D status: Deficiency/Insufficiency: < or = 30 ng/ml. Sufficiency/Optimal Levels: 31-80 ng/mL Toxicity: > 100 ng/mL. Test performed by chemiluminescent immunoassay. Absolute lymphocyte countOrd ered By: Josesito Miller on 01-30-2024 Lymphocytes Auto (Unsp spec) [#/Vol] 1.09 10*3/uL 0.83-4.51 [facility] Automated lymphocyte count a s percentage of total leukocytesOrdered By: Josesito Miller on 01-30-2024 Lymphocytes/100 WBC Auto (Unsp spec) 24.4 % 19-41 [facility] Basophil percentageOrdered B y: Josesito Miller on 01-30-2024 Basophils/100 WBC (Bld) 0.9 % 0-1 W [facility] Chloride [Moles/Vol] 108 mmol/L 98-107 [facility] Eosinophils/100 WBC (Bld) 4.7 % 0-5 [facility] Glucose [Mass/Vol] 124 mg/dL 74-106 [facility] Comment on above: Fasting Glucose resu lt from 100 to 125 mg/dL suggests IMPAIRED HOMEOSTASIS per A.D.A. criteria. Hemoglobin (Bld) [Mass/Vol] 12.0 g/dL 12.0-15.0 [facility] Monocytes/100 WBC (Bld) 9.6 % 0-10 [facility] Neutrophils (Bld) [#/Vol] 2.7 10*3/uL 2.0-7.7 [facility] Neutrophils/100 WBC (Bld) 60.0 % 47-70 [facility] Potassium [Moles/Vol] 3.9 mmol/L 3.5-5.1 [facility] Sodium [Moles/Vol] 137 mmol/L 136-145 [facility] WBC (Bld) [#/Vol] 4.5 10*3/uL 4.4-11.0 [facility] Determination of erythrocyte mean corpuscular volume (MCV)Ordered By: Josesito Miller on 01-30-2024 MCV (RBC) [Entitic vol] 98.9 fL 81-99 W [facility] Erythrocyte distribution wid th ratioOrdered By: Josesito Miller on 01-30-2024 Erythrocyte distribution width (RBC) [Ratio] 13.0 % 11.6-14.6 [facility] Erythrocyte distribution wid th standard deviationOrdered By: Josesito Miller on 01-30-2024 Erythrocyte distribution width (RBC) [Entitic vol] 47.0 fL 35.1-43.9 [facility] Hematocrit Auto (Bld) [Volum e fraction]Ordered By: Josesito Miller on 01-30-2024 Hematocrit (Bld) [Volume fraction] 35.8 % 37-47 [facility] Immature granulocytes/100 WB C Auto (Bld)Ordered By: Josesito Miller on 01-30-2024 Immature granulocytes/100 WBC (Bld) 0.400 % 0.0-0.9 [facility] Comment on above: IG% - Immature Granu locytes (promyelocytes, myelocytes and metamyelocytes) > 1% indicates that a LEFT SHIFT is Present. Laboratory - Chemistry and C hemistry - challengeOrdered By: Josesito Miller on 01-30-2024 CO2 [Moles/Vol] 23.0 mmol/L 21.0-32.0 [facility] Urea nitrogen/Creatinine [Mass ratio] 12.4 mg/mg 10-20 [facility] Laboratory - Chemistry and C hemistry - challengeOrdered By: Kassi Fisher on 01-30-2024 Magnesium [Mass/Vol] 2.2 mg/dL 1.6-2.6 [facility] Laboratory - Hematology and Cell countsOrdered By: Josesito Miller on 01-30-2024 MCH (RBC) [Entitic mass] 33.1 pg 27.0-32.0 [facility] MCHC (RBC) [Mass/Vol] 33.5 g/dL 32-36 [facility] Nucleated RBC/100 WBC (Bld) [Ratio] 0 % 0-5 [facility] Platelet mean volume (Bld) [Entitic vol] 9.3 fL 6.2-12.0 [facility] Platelets (Bld) [#/Vol] 110 10*3/uL 150-450 [facility] No Panel InformationOrdered By: Josesito Miller on 01-30-2024 Estimated Creatinine Clearance Calc 69.35 ml/min [facility] Estimated GFR (MDRD) Amer 101 mL/min >60 [facility] Comment on above: GFR Calc Estimated GFR (MDRD) Non-Af Amer 83 mL/min >60 [facility] Comment on above: Non- GFR Calc RBC Auto (Bld) [#/Vol]Ordere d By: Josesito Miller on 01-30-2024 RBC (Bld) [#/Vol] 3.62 10*6/uL 4.2-5.4 [facility] Serum or plasma calcium alexander urement (mass/volume)Ordered By: Josesito Miller on 01-30-2024 Calcium [Mass/Vol] 8.2 mg/dL 8.5-10.1 [facility] Serum or plasma creatinine m easurement (mass/volume)Ordered By: Josesito Miller on 01-30-2024 Creatinine [Mass/Vol] 0.72 mg/dL 0.55-1.02 [facility] Comment on above: The validity of the calculated GFR & GFRAA in patients over 70 years has not been determined. Clinical correlation is essential. Serum or plasma urea nitroge n measurement (mass/volume)Ordered By: Josesito Miller on 01-30-2024 Urea nitrogen [Mass/Vol] 9 mg/dL 7-18 [facility] Thin prep Papanicolaou smear with manual screeningOrdered By: Tonio Glass on 01-30-2024 Thin prep Papanicolaou smear with manual screening 126 mg/dL 74-106 [facility] Comment on above: MANAGEMENT OF PATIEN T CARE PER NURSING PROTOCOL Thin prep Papanicolaou smear with manual screeningOrdered By: Josesito Miller on 01-30-2024 Thin prep Papanicolaou smear with manual screening 6 5-15 [facility] .GFRon 01-29-2024 GFR 59 ml/min/1.73sqm Normal [facility] ([place]) Comment on above: Result Comment: GFR Population [...] mL/min/1.73 square meters Performed By: #### L IP, MDW, TROPHS, PRO, CMP, GFR, ANEU, ADIFF, CBC ####[facility] [place], [place] [address] GFR Non- 49 ml/min/1.73sqm Normal [facility] ([place]) Comment on above: Result Comment: GFR Population [...] mL/min/1.73 square meters Performed By: #### L IP, MDW, TROPHS, PRO, CMP, GFR, ANEU, ADIFF, CBC ####[address] [place] [id number] .Urinalysis Microscopic (AO) on 01-29-2024 UA RBC 0-5 Abnormal None Seen [facility] ([place]) Comment on above: Performed By: #### U A, UAMICAO #### [address] [address] UA Squam Epithelial 0-5 Abnormal None Seen [facility] ([place]) Comment on above: Performed By: #### U A, UAMICAO #### [address] [address] UA WBC 5-10 Abnormal None Seen [facility] ([place]) Comment on above: Performed By: #### U A, UAMICAO #### [place] [id number] Absolute lymphocyte countOrd ered By: Miguel Perera on 01-29-2024 Lymphocytes Auto (Unsp spec) [#/Vol] 0.90 10*3/uL 0.83-4.51 [facility] Automated lymphocyte count a s percentage of total leukocytesOrdered By: Miguel Perera on 01-29-2024 Lymphocytes/100 WBC Auto (Unsp spec) 18.3 % 19-41 [facility] Basophil percentageOrdered B y: Miguel Perera on 01-29-2024 Basophils/100 WBC (Bld) 0.8 % 0-1 W [facility] Eosinophils/100 WBC (Bld) 2.8 % 0-5 [facility] Hemoglobin (Bld) [Mass/Vol] 14.2 g/dL 12.0-15.0 [facility] Monocytes/100 WBC (Bld) 7.7 % 0-10 W [facility] Neutrophils (Bld) [#/Vol] 3.4 10*3/uL 2.0-7.7 [facility] Neutrophils/100 WBC (Bld) 69.8 % 47-70 [facility] WBC (Bld) [#/Vol] 4.9 10*3/uL 4.4-11.0 [facility] Basophil percentageOrdered B y: Meron Mendoza on 01-29-2024 Bilirubin [Mass/Vol] 1.00 mg/dL 0.20-1.00 [facility] Comment on above: For patients on eltr ombopag therapy, use of Dimension Peterman TBIL is not recommended. Chloride [Moles/Vol] 107 mmol/L 98-107 [facility] Glucose [Mass/Vol] 137 mg/dL 74-106 [facility] Comment on above: Fasting Glucose resu lt greater than or equal to 126 mg/dL suggests DIABETES MELLITUS per A.D.A. criteria. Potassium [Moles/Vol] 4.2 mmol/L 3.5-5.1 [facility] Comment on above: Moderate Hemolysis, Result may be falsely increased. Protein [Mass/Vol] 7.0 g/dL 6.4-8.2 [facility] Sodium [Moles/Vol] 137 mmol/L 136-145 [facility] Basophil percentage 0-5 SEEN /hpf 0-5 [facility] Bilirubin Test strip Ql (U)O rdered By: Meron Mendoza on 01-29-2024 Bilirubin Ql (U) Negative Negative [facility] CMPon 01-29-2024 Albumin Level 3.5 G/dL Normal 3.4-4.8 [facility] ([place]) Comment on above: Performed By: #### L ROBBIN MCKEON, TROPHS, PRO, CMP, GFR, ANEU, ADIFF, CBC ####[address] [place], [place] [address] Albumin/Globulin [Mass ratio] 1.0 {ratio} Low 1.1-2.5 [facility] ([place]) Comment on above: Performed By: #### L ROBBIN MCKEON, TROPHS, PRO, CMP, GFR, ANEU, ADIFF, CBC ####[address] [place], [place] [address] ALP [Catalytic activity/Vol] 137 U/L High 40-135 [facility] ([place]) Comment on above: Performed By: #### L ROBBIN MCKEON, TROPHS, PRO, CMP, GFR, ANEU, ADIFF, CBC ####[address] [place], [place] [address] ALT [Catalytic activity/Vol] 17 U/L Normal 14-59 [facility]) Comment on above: Performed By: #### L ROBBIN MCKEON, TROPHS, PRO, CMP, GFR, ANEU, ADIFF, CBC ####[address] [address] AST [Catalytic activity/Vol] 18 U/L Normal 10-40 [facility] ([place]) Comment on above: Performed By: #### L ROBBIN MCKEON, TROPHS, PRO, CMP, GFR, ANEU, ADIFF, CBC ####[place] [address] [place], [place] [address] Bili Total 0.4 mg/dL Normal 0.2-1.0 [facility] ([place]) Comment on above: Result Comment: Use of this assay is not recommended for patients undergoing treatment with eltrombopag due to the potential for falsely elevated results. Performed By: #### L ROBBIN MCKEON, TROPHS, PRO, CMP, GFR, ANEU, ADIFF, CBC ####[address] [place], [place] [address] BUN/Creatinine Ratio 10 ratio Normal 7-27 [facility] ([place]) Comment on above: Performed By: #### L ROBBIN MCKEON, TROPHS, PRO, CMP, GFR, ANEU, ADIFF, CBC ####[address] [place], [place] [address] Calcium [Mass/Vol] 8.7 mg/dL Normal 8.4-10.2 [facility] ([place]) Comment on above: Performed By: #### L ROBBIN MCKEON, TROPHS, PRO, CMP, GFR, ANEU, ADIFF, CBC ####[address] [place], [place] [address] Chloride [Moles/Vol] 102 mmol/L Normal 98-107 [facility] ([place]) Comment on above: Performed By: #### L ROBBIN MCKEON, TROPHS, PRO, CMP, GFR, ANEU, ADIFF, CBC ####[address] [place] [address] CO2 [Moles/Vol] 26 mmol/L Normal 23-31 [facility] ([place]) Comment on above: Performed By: #### L ROBBIN MCKEON, TROPHS, PRO, CMP, GFR, ANEU, ADIFF, CBC ####[address] [place] [address] Creatinine [Mass/Vol] 1.09 mg/dL High 0.55-1.02 [facility] ([place]) Comment on above: Performed By: #### L ROBBIN MCKEON, TROPHS, PRO, CMP, GFR, ANEU, ADIFF, CBC ####[address] [place] [id number] Electrolyte Balance 10.0 mEq/L Normal 4.0-15.0 [facility] ([place]) Comment on above: Performed By: #### L ROBBIN MCKEON, TROPHS, PRO, CMP, GFR, ANEU, ADIFF, CBC ####[address] [place] [address] Globulin 3.5 G/dL Normal [facility] ([place]) Comment on above: Performed By: #### L ROBBIN MCKEON, TROPHS, PRO, CMP, GFR, ANEU, ADIFF, CBC ####[address] [place] [phone] Glucose [Mass/Vol] 256 mg/dL High 83-110 [facility] ([place]) Comment on above: Performed By: #### L ROBBIN MCKEON, TROPHS, PRO, CMP, GFR, ANEU, ADIFF, CBC ####[address] [place], [place] [address] Potassium [Moles/Vol] 3.8 mmol/L Normal 3.5-5.1 [facility] ([place]) Comment on above: Performed By: #### L ROBBIN MCKEON, TROPHS, PRO, CMP, GFR, ANEU, ADIFF, CBC ####[address] [place], [place] [address] Sodium [Moles/Vol] 138 mmol/L Normal 136-145 [facility] ([place]) Comment on above: Performed By: #### L ROBBIN MCKEON, TROPHS, PRO, CMP, GFR, ANEU, ADIFF, CBC ####[address] [place], [place] [address] Total Protein 7.0 G/dL Normal 6.4-8.2 [facility] ([place]) Comment on above: Performed By: #### L ROBBIN MCKEON, AURORAS, PRO, CMP, GFR, ANEU, ADIFF, CBC ####[address] [place], [place] [address] Urea nitrogen [Mass/Vol] 11 mg/dL Normal 7-18 [facility] ([place]) Comment on above: Performed By: #### L ROBBIN MCKEON, TROPHS, PRO, CMP, GFR, ANEU, ADIFF, CBC ####[address] [place], [place] [address] Determination of erythrocyte mean corpuscular volume (MCV)Ordered By: Miguel Perera on 01-29-2024 MCV (RBC) [Entitic vol] 99.1 fL 81-99 [facility] Erythrocyte distribution wid th ratioOrdered By: Miguel Perera on 01-29-2024 Erythrocyte distribution width (RBC) [Ratio] 13.1 % 11.6-14.6 [facility] Erythrocyte distribution wid th standard deviationOrdered By: Miguel Perera on 01-29-2024 Erythrocyte distribution width (RBC) [Entitic vol] 47.6 fL 35.1-43.9 [facility] Hematocrit Auto (Bld) [Volum e fraction]Ordered By: Miguel Perera on 01-29-2024 Hematocrit (Bld) [Volume fraction] 44.2 % 37-47 [facility] Immature granulocytes/100 WB C Auto (Bld)Ordered By: Miguel Perera on 01-29-2024 Immature granulocytes/100 WBC (Bld) 0.600 % 0.0-0.9 [facility] Comment on above: IG% - Immature Granu locytes (promyelocytes, myelocytes and metamyelocytes) > 1% indicates that a LEFT SHIFT is Present. Ketones Test strip Ql (U)Ord ered By: Meron Mendoza on 01-29-2024 Ketones Ql (U) Negative Negative [facility] LIPon 01-29-2024 Lipase Level 12 U/L Low 16-77 [facility] ([place]) Comment on above: Performed By: #### L IP, MDW, TROPHS, PRO, CMP, GFR, ANEU, ADIFF, CBC #### [place] [address] Laboratory - Chemistry and C hemistry - challengeOrdered By: Meron Mendoza on 01-29-2024 Albumin/Globulin [Mass ratio] 0.9 {ratio} 0.9-2.4 [facility] ALP [Catalytic activity/Vol] 90 U/L 45-117 [facility] ALT [Catalytic activity/Vol] 16 U/L 13-56 [facility] CO2 [Moles/Vol] 24.0 mmol/L 21.0-32.0 [facility] Globulin (S) [Mass/Vol] 3.7 g/dL 2.2-4.2 [facility] Urea nitrogen/Creatinine [Mass ratio] 12.1 mg/mg 10-20 [facility] Laboratory - CoagulationOrde red By: Miguel Perera on 01-29-2024 INR Coag (Bld) [Relative time] 1.2 {INR} [facility] PT Coag (PPP) [Time] 14.8 s 11.7-14.9 [facility] Laboratory - Hematology and Cell countsOrdered By: Miguel Perera on 01-29-2024 MCH (RBC) [Entitic mass] 31.8 pg 27.0-32.0 [facility] MCHC (RBC) [Mass/Vol] 32.1 g/dL 32-36 [facility] Nucleated RBC/100 WBC (Bld) [Ratio] 0 % 0-5 [facility] Platelet mean volume (Bld) [Entitic vol] 9.6 fL 6.2-12.0 [facility] Platelets (Bld) [#/Vol] 136 10*3/uL 150-450 [facility] Laboratory - Microbiology an d Antimicrobial susceptibilityOrdered By: Meron Mendoza on 01-29-2024 SARS-CoV-2 (COVID-19) RNA RUSSELL+probe Ql (Unsp spec) [facility] Mucus LM Ql (Urine sed)Order ed By: Meron Mendoza on 01-29-2024 Mucus Ql (Urine sed) 0 SEEN /hpf [facility] Nitrite Test strip Ql (U)Ord ered By: Meron Mendoza on 01-29-2024 Nitrite Ql (U) Negative Negative [facility] No Panel InformationOrdered By: Meron Mendoza on 01-29-2024 Estimated Creatinine Clearance Calc 69.31 ml/min [facility] Estimated GFR (MDRD) Amer 87 mL/min >60 [facility] Comment on above: GFR Calc Estimated GFR (MDRD) Non-Af Amer 72 mL/min >60 [facility] Comment on above: Non- GFR Calc Troponin I High Sensitivity 18 pg/mL 3.0-54.0 [facility] Comment on above: Please Note: New [employer] t Units and Gender Specific Reference Ranges. For more information see Policy Stat Procedure Peterman High Sensitivity Troponin (TNIH) and attachments. Urine RBC 0-5 SEEN /hpf 0-5 [facility] Protein Test strip Ql (U)Ord ered By: Meron Mendoza on 01-29-2024 Protein Ql (U) 30 mg/dl Negative [facility] RBC Auto (Bld) [#/Vol]Ordere d By: Miguel Perera on 01-29-2024 RBC (Bld) [#/Vol] 4.46 10*6/uL 4.2-5.4 [facility] Serum or plasma calcium alexander urement (mass/volume)Ordered By: Meron Mendoza on 01-29-2024 Calcium [Mass/Vol] 8.8 mg/dL 8.5-10.1 [facility] Serum or plasma creatinine m easurement (mass/volume)Ordered By: Meron Mendoza on 01-29-2024 Creatinine [Mass/Vol] 0.82 mg/dL 0.55-1.02 [facility] Comment on above: The validity of the calculated GFR & GFRAA in patients over 70 years has not been determined. Clinical correlation is essential. Serum or plasma urea nitroge n measurement (mass/volume)Ordered By: Meron Mendoza on 01-29-2024 Urea nitrogen [Mass/Vol] 10 mg/dL 7-18 [facility] Squamous epithelial cells de tection in urine sediment by light microscopyOrdered By: Meron Mendoza on 01-29-2024 Epithelial cells.squamous LM Ql (Urine sed) 0-5 SEEN /hpf 5-10 [facility] TROPHSon 01-29-2024 High Sensitivity Troponin I 11 ng/L Normal 0-51 [facility] ([place]) Comment on above: Result Comment: High Sensitive Troponin I Reference Ranges: Female: 0-51 ng/L Male: 0-76 ng/L Testing performed on [employer] using a homogeneous sandwich chemiluminescent immunoassay based on Expand[employer] technology. Performed By: #### T [facility] #### Adrián [address] [address] High Sensitivity Troponin I 13 ng/L Normal 0-51 [facility] ([place]) Comment on above: Result Comment: High Sensitive Troponin I Reference Ranges: Female: 0-51 ng/L Male: 0-76 ng/L Testing performed on [email or web address] using a homogeneous sandwich chemiluminescent immunoassay based on Expand[employer] technology. Performed By: #### L IP, MDW, TROPHS, PRO, CMP, GFR, ANEU, ADIFF, CBC ####Ad[id number] [place], [place] [address] Thin prep Papanicolaou smear with manual screeningOrdered By: Meron Mendoza on 01-29-2024 Thin prep Papanicolaou smear with manual screening 3.3 g/dL 3.2-5.0 [facility] Thin prep Papanicolaou smear with manual screening 26 U/L 15-37 [facility] Comment on above: Moderate Hemolysis, Result may be falsely increased. Thin prep Papanicolaou smear with manual screening 6 5-15 [facility] UAon 01-29-2024 Color (U) Yellow Normal [facility] ([place]) Comment on above: Performed By: #### U A, UAMICAO #### [address] [address] Glucose (U) [Mass/Vol] 100 mg/dL Abnormal Negative [facility] ([place]) Comment on above: Performed By: #### U A, UAMICAO #### [address] [address] Ketones Ql (U) Negative Normal Negative [facility] ([place]) Comment on above: Performed By: #### U A, UAMICAO #### [address] [address] UA Appear Slightly Cloudy Abnormal Clear [facility] ([place]) Comment on above: Performed By: #### U A, UAMICAO #### [address] [address] UA Blood Small Abnormal Negative [facility] ([place]) Comment on above: Performed By: #### U A, UAMICAO #### [address] [address] UA Leuk Est Trace Abnormal Negative [facility] ([place]) Comment on above: Performed By: #### U A, UAMICAO #### [address] [address] UA Nitrite Negative Normal Negative [facility] ([place]) Comment on above: Performed By: #### U A, UAMICAO #### [address] [address] UA pH 6.0 Normal 5.0 - 8.0 [facility] ([place]) Comment on above: Performed By: #### U A, UAMICAO #### [address] [address] UA Protein 100 mg/dL Abnormal Negative [facility] ([place]) Comment on above: Performed By: #### U A, UAMICAO #### [address] [address] UA Spec Grav >=1.030 Abnormal 1.015-1.025 [facility] ([place]) Comment on above: Performed By: #### U A, UAMICAO #### [address] [address] UA Specimen Type Clean Catch Normal [facility] ([place]) Comment on above: Performed By: #### U A, UAMICAO #### [address] [address] UA Urobilinogen 0.2 E.U./dL Normal 0.2-1.0 [facility] ([place]) Comment on above: Performed By: #### U A, UAMICAO #### [address] [address] Urobilinogen (U) [Mass/Vol] Negative Normal Negative [facility] ([place]) Comment on above: Performed By: #### U A, UAMICAO #### [address] [address] Urine blood detectionOrdered By: Meron Mendoza on 01-29-2024 RBC Ql (U) 10 /ul Negative [facility] Urine clarityOrdered By: Marley Mendoza on 01-29-2024 Clarity (U) Clear Clear [facility] Urine color determinationOrd ered By: Meron Mendoza on 01-29-2024 Color (U) Yellow Yellow [facility] Urine glucose detectionOrder ed By: Meron Mendoza on 01-29-2024 Glucose Ql (U) Normal mg/dl Normal [facility] Urine leukocyte esterase det ection by dipstickOrdered By: Meron Mendoza on 01-29-2024 Leukocyte esterase Test strip Ql (U) 25 /ul Negative [facility] Urine pHOrdered By: Meron jack on 01-29-2024 pH (U) 7.0 [pH] 5.0 - 8.0 [facility] Urine sediment bacteria coun t by microscopy (number/high power field)Ordered By: Meron Mendoza on 01-29-2024 Bacteria LM.HPF (Urine sed) [#/Area] 0 /[HPF] None Seen [facility] Urine specific gravity measu rementOrdered By: Meron Mendoza on 01-29-2024 Specific gravity (U) [Rel density] 1.005 1.002-1.030 [facility] Urine urobilinogen measureme ntOrdered By: Meron Mendoza on 01-29-2024 Urobilinogen Ql (U) Normal mg/dl Normal [facility] XR CHEST 1 VIEWon 01-29-2024 XR CHEST [...] 01/28/2024 10:18:43 PM Ordering Provider: RUBIO Hood [facility] ([place]) .Auto Diffon 01-28-2024 Basophil, Absolute 0.1 10 3/mcL Normal 0.0-0.2 [facility] ([place]) Comment on above: Performed By: #### L IP, W, TROPHS, PRO, CMP, GFR, ANEU, ADIFF, CBC #### [address] [place], [place] [address] Basophils/100 WBC (Bld) 1.0 % Normal 0.0-2.5 [facility] ([place]) Comment on above: Performed By: #### L ROBBIN MCKEON, TROPHS, PRO, CMP, GFR, ANEU, ADIFF, CBC #### [address] [address] Eosinophil, Absolute 0.3 10 3/mcL Normal 0.0-0.4 [facility] ([place]) Comment on above: Performed By: #### L ROBBIN MCKEON, TROPHS, PRO, CMP, GFR, ANEU, ADIFF, CBC #### [address] [address] Eosinophils/100 WBC (Bld) 4.8 % Normal 0.0-7.0 [facility] ([place]) Comment on above: Performed By: #### L ROBBIN MCKEON, TROPHS, PRO, CMP, GFR, ANEU, ADIFF, CBC #### [address] [address] Lymphocyte, Absolute 1.2 10 3/mcL Normal 0.8-3.9 [facility] ([place]) Comment on above: Performed By: #### L ROBBIN MCKEON, TROPHS, PRO, CMP, GFR, ANEU, ADIFF, CBC #### [address] [address] Lymphocytes/100 WBC (Bld) 21.6 % Normal 10.0-50.0 [facility] ([place]) Comment on above: Performed By: #### L ROBBIN MCKEON, TROPHS, PRO, CMP, GFR, ANEU, ADIFF, CBC #### [address] [address] Monocyte, Absolute 0.5 10 3/mcL Normal 0.2-1.0 [facility] ([place]) Comment on above: Performed By: #### L ROBBIN MCKEON, TROPHS, PRO, CMP, GFR, ANEU, ADIFF, CBC #### [address] [address] Monocytes/100 WBC (Bld) 9.9 % Normal 1.7-13.0 [facility] ([place]) Comment on above: Performed By: #### L ROBBIN MCKEON, TROPHS, PRO, CMP, GFR, ANEU, ADIFF, CBC #### [place] [address] Neutrophils/100 WBC (Bld) 62.7 % Normal 37.0-80.0 [facility] ([place]) Comment on above: Performed By: #### L ROBBIN MCKEON, TROPHS, PRO, CMP, GFR, ANEU, ADIFF, CBC #### [place] [address] .MDWon 01-28-2024 Monocyte Distribution Width Not performed Normal 0.00-20.00 [facility] ([place]) Comment on above: Result Comment: ROBBIN testing performed only on adult ER patients between the ages of 18-89 years. Performed By: #### L ROBBIN MCKEON, TROPHS, PRO, CMP, GFR, ANEU, ADIFF, CBC #### [place] [address] .NEUABSon 01-28-2024 Neutrophil, Absolute 3.3 10 3/mcL Normal 2.9-6.2 [facility] ([place]) Comment on above: Performed By: #### L ROBBIN MCKEON, TROPHS, PRO, CMP, GFR, ANEU, ADIFF, CBC #### [place] [address] CBCon 01-28-2024 Erythrocyte distribution width (RBC) [Ratio] 13.9 % Normal 11.5-14.5 [facility] ([place]) Comment on above: Performed By: #### L ROBBIN MCKEON, TROPHS, PRO, CMP, GFR, ANEU, ADIFF, CBC #### [place] [address] Hematocrit (Bld) [Volume fraction] 38.8 % Normal 37.0-47.0 [facility] ([place]) Comment on above: Performed By: #### L ROBBIN MCKEON, TROPHS, PRO, CMP, GFR, ANEU, ADIFF, CBC #### [place] [address] Hgb 13.2 G/dL Normal 12.0-16.0 [facility] ([place]) Comment on above: Performed By: #### L ROBBIN MCKEON, TROPHS, PRO, CMP, GFR, ANEU, ADIFF, CBC #### [address] [address] MCH (RBC) [Entitic mass] 33.8 pg High 27.0-31.2 [facility] ([place]) Comment on above: Performed By: #### L ROBBIN MCKEON, TROPHS, PRO, CMP, GFR, ANEU, ADIFF, CBC #### [address] [address] MCHC 34.1 G/dL Normal 33.0-37.0 [facility] ([place]) Comment on above: Performed By: #### L ROBBIN MCKEON, TROPHS, PRO, CMP, GFR, ANEU, ADIFF, CBC #### [address] [address] MCV (RBC) [Entitic vol] 98.9 fL High 80.0-94.0 [facility] ([place]) Comment on above: Performed By: #### L ROBBIN MCKEON, TROPHS, PRO, CMP, GFR, ANEU, ADIFF, CBC #### [address] [address] Platelet 127 10 3/mcL Low 130-400 [facility] ([place]) Comment on above: Performed By: #### L ROBBIN MCKEON, TROPHS, PRO, CMP, GFR, ANEU, ADIFF, CBC #### [address] [address] Platelet mean volume (Bld) [Entitic vol] 7.6 fL Normal 7.4-10.4 [facility] ([place]) Comment on above: Performed By: #### L ROBBIN MCKEON, TROPHS, PRO, CMP, GFR, ANEU, ADIFF, CBC #### [address] [address] RBC 3.92 10 6/mcL Low 4.20-5.40 [facility] ([place]) Comment on above: Performed By: #### L ROBBIN MCKEON, TROPHS, PRO, CMP, GFR, ANEU, ADIFF, CBC #### [address] [place], [place] [address] WBC 5.3 10 3/mcL Normal 4.6-10.8 [facility] ([place]) Comment on above: Performed By: #### L ROBBIN MCKEON, TROPHS, PRO, CMP, GFR, ANEU, ADIFF, CBC #### [address] [place], [place] [address] LABORATORYOrdered By: SYSTEM SYSTEM on 01-28-2024 Troponin I.cardiac DL <= 0.01 ng/mL [Mass/Vol] 11 ng/L Normal 0 - 51 ng/L AO ADM SS Comment on above: Interpretive Data: H igh Sensitive Troponin I Reference Ranges: Female: 0-51 ng/L Male: 0-76 ng/L Testing performed on [employer] using a homogeneous sandwich chemiluminescent immunoassay based on [employer] technology. Albumin BCP dye [Mass/Vol] 3.5 G/dL [...] MCH (RBC) [Entitic mass] 33.8 pg High 27. 0 - 31.2 pg AO Workflow SS MCHC [...] ng/L Male: 0-76 ng/L Testing performed on [employer] using a homogeneous sandwich chemiluminescent immunoassay based on [employer] technology. Urea nitrogen [Mass/Vol] 11 mg/dL Normal 7 - 18 mg/d L AO ADM SS Urea nitrogen/Creatinine [Mass ratio] 10 ratio Normal 7 - 27 ratio AO ADM SS WBC (Bld) [#/Vol] 5.3 103/mcL Normal 4.6 - 10.8 10^3/mcL AO Workflow SS LABORATORYOrdered By: Gigi Dawson on 01-28-2024 Appearance (U) Slightly Cloudy [...] Ql (U) Negative Normal Negative AO Auto Urine SS UA Leuk Est Trace *ABN* (01/28/24 [...] [facility] SS Comment on above: Interpretive Data: Cynthia chi [employer] (CHEST, 1991, [id number]) recommended therapeutic range for oral anticoagulant therapy is: LOW RISK: Prophylaxis of venous thrombosis INR: 2.0-3.0 Treatment of pulmonary embolism 2.0-3.0 Prevention of systemic embolism 2.0-3.0 HIGH RISK: Mechanical prosthetic valves 2.5-3.5 PT Coag (PPP) [Time] 13.8 s Normal 9.0 - 1 4.2 seconds AO [facility] PROon 01-28-2024 PT Coag (PPP) [Time] 13.8 s Normal 9.0-14.2 [facility] ([place]) Comment on above: Performed By: #### L IP, ROBBIN, TROPHS, PRO, CMP, GFR, ANEU, ADIFF, CBC #### [address] [address] PT International Ratio 1.2 Normal [facility] ([place]) Comment on above: Result Comment: [employer] (CHEST, 1991, [id number]) recommended therapeutic range for oral anticoagulant therapy is: LOW RISK: Prophylaxis of venous thrombosis INR: 2.0-3.0 Treatment of pulmonary embolism 2.0-3.0 Prevention of systemic embolism 2.0-3.0 HIGH RISK: Mechanical prosthetic valves 2.5-3.5 Performed By: #### L IP, W, TROPHS, PRO, CMP, GFR, ANEU, ADIFF, CBC #### [id number] [place], [place] [address] Capillary blood internationa l normalized ratio (INR)Ordered By: Devyn Samaniego on 01-22-2024 INR Coag (BldC) [Relative time] 1.4 [facility] Comment on above: Critical Value > 4.0 Thin prep Papanicolaou smear with manual screeningOrdered By: Devyn Samaniego on 01-22-2024 Thin prep Papanicolaou smear with manual screening 118 mg/dL 74-106 [facility] Comment on above: MANAGEMENT OF PATIEN T CARE PER NURSING PROTOCOL Whole blood prothrombin time Ordered By: Devyn Samaniego on 01-22-2024 PT Coag (Bld) [Time] 15.2 s 11.7-14.9 [facility] UA DIP, URINE (POC)on 2023 BILIRUBIN UA (POCT) Negative Negative [facility] CLARITY UA (POCT) Clear [facility] COLOR UA (POCT) Yellow [facility] GLUCOSE UA (POCT) Negative Negative mg/dL [facility] Hemoglobin Ql (U) Moderate Abnormal Negative [facility] Interpretation and review of laboratory results Abnormal [facility] KETONE UA (POCT) Negative Negative mg/dL [facility] LEUKOCYTES UA (POCT) Trace Abnormal Negative [facility] NITRITE UA (POCT) Negative Negative [facility] PH UA (POCT) 5.5 4.5 - 8.0 [facility] Protein Ql (U) 100 mg/dL Abnormal Negative [facility] SPECIFIC GRAVITY UA (POCT) >=1.030 1.005 - 1.030 [facility] UROBILINOGEN UA (POCT) 0.2 Carlita l E.U./dL [facility] Location:[facility], [address] [place] [address], [place], [place], [id number] [place] [address] POINT OF CARE [facility] Laboratory - CoagulationOrde red By: Lisandra Cao on 01-04-2024 INR Coag (Bld) [Relative time] 2.1 {INR} [facility] PT Coag (PPP) [Time] 23.3 s 11.7-14.9 [facility] Basophil percentageOrdered B y: Josesito Miller on 12-31-2023 Chloride [Moles/Vol] 102 mmol/L 98-107 [facility] Glucose [Mass/Vol] 240 mg/dL 74-106 [facility] Comment on above: Glucose result great er than or equal to 200 mg/dLsuggests DIABETES MELLITUS per A.D.A. criteria. Potassium [Moles/Vol] 4.1 mmol/L 3.5-5.1 [facility] Sodium [Moles/Vol] 137 mmol/L 136-145 [facility] Laboratory - Chemistry and C hemistry - challengeOrdered By: Josesito Miller on 12-31-2023 CO2 [Moles/Vol] 24.0 mmol/L 21.0-32.0 [facility] Urea nitrogen/Creatinine [Mass ratio] 24.1 mg/mg 10-20 [facility] Laboratory - CoagulationOrde red By: Josesito Miller on 12-31-2023 INR Coag (Bld) [Relative time] 2.3 {INR} [facility] PT Coag (PPP) [Time] 24.9 s 11.7-14.9 [facility] No Panel InformationOrdered By: Josesito Miller on 12-31-2023 Estimated Creatinine Clearance Calc 39.26 ml/min [facility] Estimated GFR (MDRD) Amer 47 mL/min >60 [facility] Comment on above: GFR Calc Estimated GFR (MDRD) Non-Af Amer 39 mL/min >60 [facility] Comment on above: Non- GFR Calc Serum or plasma calcium alexander urement (mass/volume)Ordered By: Josesito Miller on 12-31-2023 Calcium [Mass/Vol] 8.9 mg/dL 8.5-10.1 [facility] Serum or plasma creatinine m easurement (mass/volume)Ordered By: Josesito Miller on 12-31-2023 Creatinine [Mass/Vol] 1.41 mg/dL 0.55-1.02 [facility] Comment on above: The validity of the calculated GFR & GFRAA in patients over 70 years has not been determined. Clinical correlation is essential. Serum or plasma urea nitroge n measurement (mass/volume)Ordered By: Josesito Miller on 12-31-2023 Urea nitrogen [Mass/Vol] 34 mg/dL 7-18 [facility] Thin prep Papanicolaou smear with manual screeningOrdered By: Josesito Miller on 12-31-2023 Thin prep Papanicolaou smear with manual screening 11 5-15 [facility] Thin prep Papanicolaou smear with manual screening 236 mg/dL 74-106 [facility] Comment on above: MANAGEMENT OF PATIEN T CARE PER NURSING PROTOCOL Absolute lymphocyte countOrd ered By: Kassi Fisher on 12-30-2023 Lymphocytes Auto (Unsp spec) [#/Vol] 1.07 10*3/uL 0.83-4.51 [facility] Automated lymphocyte count a s percentage of total leukocytesOrdered By: Kassi Fisher on 12-30-2023 Lymphocytes/100 WBC Auto (Unsp spec) 13.8 % 19-41 [facility] Basophil percentageOrdered B y: Kassi Fisher on 12-30-2023 Basophils/100 WBC (Bld) 0.5 % 0-1 [facility] Bilirubin [Mass/Vol] 1.00 mg/dL 0.20-1.00 [facility] Comment on above: For patients on eltr ombopag therapy, use of Dimension Peterman TBIL is not recommended. Eosinophils/100 WBC (Bld) 0.6 % 0-5 [facility] Hemoglobin (Bld) [Mass/Vol] 11.7 g/dL 12.0-15.0 [facility] Monocytes/100 WBC (Bld) 8.3 % 0-10 [facility] Neutrophils (Bld) [#/Vol] 5.9 10*3/uL 2.0-7.7 [facility] Neutrophils/100 WBC (Bld) 76.2 % 47-70 [facility] Protein [Mass/Vol] 6.6 g/dL 6.4-8.2 [facility] WBC (Bld) [#/Vol] 7.7 10*3/uL 4.4-11.0 [facility] Cytology report of Body flui d Cyto stainOrdered By: Devyn Samaniego on 12-30-2023 Cytology report Cyto stain Doc (Body fld) SEE PATHOLOGY REPORT [facility] Comment on above: Specimen submitted t o Anatomical Pathology Department for testing. Determination of erythrocyte mean corpuscular volume (MCV)Ordered By: Kassi Fisher on 12-30-2023 MCV (RBC) [Entitic vol] 94.6 fL 81-99 [facility] Erythrocyte distribution wid th ratioOrdered By: Kassi Phillip on 12-30-2023 Erythrocyte distribution width (RBC) [Ratio] 12.3 % 11.6-14.6 [facility] Erythrocyte distribution wid th standard deviationOrdered By: Kassi Phillip on 12-30-2023 Erythrocyte distribution width (RBC) [Entitic vol] 42.3 fL 35.1-43.9 [facility] Hematocrit Auto (Bld) [Volum e fraction]Ordered By: Kassi Phillip on 12-30-2023 Hematocrit (Bld) [Volume fraction] 34.9 % 37-47 [facility] Immature granulocytes/100 WB C Auto (Bld)Ordered By: [facility] Phillip on 12-30-2023 Immature granulocytes/100 WBC (Bld) 0.600 % 0.0-0.9 [facility] Comment on above: IG% - Immature Granu locytes (promyelocytes, myelocytes and metamyelocytes) > 1% indicates that a LEFT SHIFT is Present. Laboratory - Chemistry and C hemistry - challengeOrdered By: [facility] Phillip on 12-30-2023 Albumin/Globulin [Mass ratio] 0.7 {ratio} 0.9-2.4 [facility] ALP [Catalytic activity/Vol] 71 U/L 45-117 [facility] ALT [Catalytic activity/Vol] 11 U/L 13-56 [facility] Globulin (S) [Mass/Vol] 3.8 g/dL 2.2-4.2 [facility] Laboratory - Hematology and Cell countsOrdered By: Kassi Phillip on 12-30-2023 MCH (RBC) [Entitic mass] 31.7 pg 27.0-32.0 [facility] MCHC (RBC) [Mass/Vol] 33.5 g/dL 32-36 [facility] Nucleated RBC/100 WBC (Bld) [Ratio] 0 % 0-5 [facility] Platelet mean volume (Bld) [Entitic vol] 10.0 fL 6.2-12.0 [facility] Platelets (Bld) [#/Vol] 114 10*3/uL 150-450 [facility] RBC Auto (Bld) [#/Vol]Ordere d By: Kassi Fisher on 12-30-2023 RBC (Bld) [#/Vol] 3.69 10*6/uL 4.2-5.4 [facility] Thin prep Papanicolaou smear with manual screeningOrdered By: Kassi Fisher on 12-30-2023 Thin prep Papanicolaou smear with manual screening 2.8 g/dL 3.2-5.0 [facility] Thin prep Papanicolaou smear with manual screening 16 U/L 15-37 [facility] Basophil percentageOrdered B y: Abdifatah Lemon on 12-29-2023 Basophil percentage 25-50 SEEN /hpf 0-5 [facility] Bilirubin Test strip Ql (U)O rdered By: Abdifatah Lemon on 12-29-2023 Bilirubin Ql (U) Negative Negative [facility] Culture, urineOrdered By: Salvador Lemon on 12-29-2023 Bacteria identified Cx Nom (U) Presumptive E. coli [facility] Bacteria identified Cx Nom (U) Presumptive E. coli [facility] Ketones Test strip Ql (U)Ord ered By: Abdifatah Lemon on 12-29-2023 Ketones Ql (U) Negative Negative [facility] Laboratory - Chemistry and C hemistry - challengeOrdered By: Abdifatah Lemon on 12-29-2023 Lipase [Catalytic activity/Vol] U/L 13-75 [facility] Comment on above: Please note:LIPASE r evised reference range effective 23. New Lipase methodology. Expected to produce lower values than the previous assay method. NEW Reference Range: 13 - 75 U/L Mucus LM Ql (Urine sed)Order ed By: Abdifatah Lemon on 12-29-2023 Mucus Ql (Urine sed) 0 SEEN /hpf [facility] Nitrite Test strip Ql (U)Ord ered By: Abdifatah Lemon on 12-29-2023 Nitrite Ql (U) Positive Negative [facility] No Panel InformationOrdered By: Abdifatah Lemon on 12-29-2023 Urine RBC 5-10 SEEN /hpf 0-5 [facility] Protein Test strip Ql (U)Ord ered By: Abdifatah Lemon on 12-29-2023 Protein Ql (U) 30 mg/dl Negative [facility] Squamous epithelial cells de tection in urine sediment by light microscopyOrdered By: Abdifatah Lemon on 12-29-2023 Epithelial cells.squamous LM Ql (Urine sed) 0 SEEN /hpf 5-10 [facility] Urine blood detectionOrdered By: Abdifatah Lemon on 12-29-2023 RBC Ql (U) 50 /ul Negative [facility] Urine clarityOrdered By: Jim Lemon on 12-29-2023 Clarity (U) Sl. Cloudy Clear [facility] Urine color determinationOrd ered By: Abdifatah Lemon on 12-29-2023 Color (U) Yellow Yellow [facility] Urine glucose detectionOrder ed By: Abdifatah Lemon on 12-29-2023 Glucose Ql (U) Normal mg/dl Normal [facility] Urine leukocyte esterase det ection by dipstickOrdered By: Abdifatah Lemon on 12-29-2023 Leukocyte esterase Test strip Ql (U) 500 /ul Negative [facility] Urine pHOrdered By: Abdifatah Denise ghcynthia on 12-29-2023 pH (U) 6.5 [pH] 5.0 - 8.0 [facility] Urine sediment bacteria coun t by microscopy (number/high power field)Ordered By: Abdifatah Lemon on 12-29-2023 Bacteria LM.HPF (Urine sed) [#/Area] 4 /[HPF] None Seen [facility] Urine specific gravity measu rementOrdered By: Abdifatah Lemon on 12-29-2023 Specific gravity (U) [Rel density] 1.010 1.002-1.030 [facility] Urine urobilinogen measureme ntOrdered By: Abdifatah Lemon on 12-29-2023 Urobilinogen Ql (U) Normal mg/dl Normal [facility] INR in Blood by Coagulation assayOrdered By: Brooke Willingham on 11-09-2023 INR Coag (Bld) [Relative time] 2.1 {INR} [facility] Laboratory - CoagulationOrde red By: Brooke Willingham on 11-09-2023 PT Coag (PPP) [Time] 24.1 s 11.7-14.9 [facility] Absolute lymphocyte countOrd ered By: Freddy Robert on 10-02-2023 Lymphocytes Auto (Unsp spec) [#/Vol] 1.07 10*3/uL 0.83-4.51 [facility] Basophil percentageOrdered B y: Freddy Robert on 10-02-2023 Basophils/100 WBC (Bld) 1.0 % 0-1 [facility] Eosinophils/100 WBC (Bld) 4.9 % 0-5 [facility] Neutrophils (Bld) [#/Vol] 2.4 10*3/uL 2.0-7.7 [facility] Neutrophils/100 WBC (Bld) 59.6 % 47-70 [facility] WBC (Bld) [#/Vol] 4.1 10*3/uL 4.4-11.0 [facility] Blood erythrocytes count (nu mber/volume)Ordered By: Freddy Robert on 10-02-2023 RBC (Bld) [#/Vol] 3.68 10*6/uL 4.2-5.4 [facility] Blood hemoglobin measurement (mass/volume)Ordered By: Freddy Robert on 10-02-2023 Hemoglobin (Bld) [Mass/Vol] 11.8 g/dL 12.0-15.0 [facility] Blood lymphocytes/100 leukoc ytesOrdered By: Freddyambrose Robert on 10-02-2023 Lymphocytes/100 WBC (Bld) 26.2 % 19-41 [facility] Blood monocytes/100 leukocyt esOrdered By: Freddy Robert on 10-02-2023 Monocytes/100 WBC (Bld) 7.6 % 0-10 [facility] Blood platelet mean volumeOr dered By: Freddy Robert on 10-02-2023 Platelet mean volume (Bld) [Entitic vol] 10.3 fL 6.2-12.0 [facility] Determination of erythrocyte mean corpuscular volume (MCV)Ordered By: Freddy Robert on 10-02-2023 MCV (RBC) [Entitic vol] 98.1 fL 81-99 [facility] Hematocrit Auto (Bld) [Volum e fraction]Ordered By: Freddy Robert on 10-02-2023 Hematocrit (Bld) [Volume fraction] 36.1 % 37-47 [facility] Laboratory - Hematology and Cell countsOrdered By: Freddy Robert on 10-02-2023 Erythrocyte distribution width (RBC) [Entitic vol] 46.4 fL 35.1-43.9 [facility] Erythrocyte distribution width (RBC) [Ratio] 12.9 % 11.6-14.6 [facility] Immature granulocytes/100 WBC (Bld) 0.700 % 0.0-0.9 [facility] Comment on above: IG% - Immature Granu locytes (promyelocytes, myelocytes and metamyelocytes) > 1% indicates that a LEFT SHIFT is Present. MCH (RBC) [Entitic mass] 32.1 pg 27.0-32.0 [facility] Nucleated RBC/100 WBC (Bld) [Ratio] 0 % 0-5 [facility] MCHC Auto (RBC) [Mass/Vol]Or dered By: Freddy Robert on 10-02-2023 MCHC (RBC) [Mass/Vol] 32.7 g/dL 32-36 [facility] Platelets bldOrdered By: Freddy Robert on 10-02-2023 Platelets (Bld) [#/Vol] 107 10*3/uL 150-450 [facility] INR in Blood by Coagulation assayOrdered By: Pete Che on 09-01-2023 INR Coag (Bld) [Relative time] 2.5 {INR} [facility] Laboratory - CoagulationOrde red By: Pete Che on 09-01-2023 PT Coag (PPP) [Time] 27.3 s 11.7-14.9 [facility] INR in Blood by Coagulation assayOrdered By: Sharan Chandra on 07-10-2023 INR Coag (Bld) [Relative time] 2.3 {INR} [facility] Laboratory - CoagulationOrde red By: Sharan Chandra on 07-10-2023 PT Coag (PPP) [Time] 25.2 s 11.7-14.9 [facility] INR in Blood by Coagulation assayOrdered By: Sharan Chandra on 05-28-2023 INR Coag (Bld) [Relative time] 3.3 {INR} [facility] Laboratory - CoagulationOrde red By: Sharan Chandra on 05-28-2023 PT Coag (PPP) [Time] 34.1 s 11.7-14.9 [facility] Absolute lymphocyte countOrd ered By: Freddy Robert on 05-21-2023 Lymphocytes Auto (Unsp spec) [#/Vol] 1.76 10*3/uL 0.83-4.51 [facility] Basophil percentageOrdered B y: Freddy Robert on 05-21-2023 Basophils/100 WBC (Bld) 0.7 % 0-1 [facility] Chloride [Moles/Vol] 103 mmol/L 98-107 [facility] Eosinophils/100 WBC (Bld) 2.3 % 0-5 [facility] Glucose [Mass/Vol] 101 mg/dL 74-106 [facility] Comment on above: Fasting Glucose resu lt from 100 to 125 mg/dL suggests IMPAIRED HOMEOSTASIS per A.D.A. criteria. Neutrophils (Bld) [#/Vol] 5.5 10*3/uL 2.0-7.7 [facility] Neutrophils/100 WBC (Bld) 66.2 % 47-70 [facility] Potassium [Moles/Vol] 4.2 mmol/L 3.5-5.1 [facility] Sodium [Moles/Vol] 138 mmol/L 136-145 [facility] WBC (Bld) [#/Vol] 8.3 10*3/uL 4.4-11.0 [facility] Blood erythrocytes count (nu mber/volume)Ordered By: Freddy Robert on 05-21-2023 RBC (Bld) [#/Vol] 4.49 10*6/uL 4.2-5.4 [facility] Blood hemoglobin measurement (mass/volume)Ordered By: Freddy Robert on 05-21-2023 Hemoglobin (Bld) [Mass/Vol] 14.5 g/dL 12.0-15.0 [facility] Blood lymphocytes/100 leukoc ytesOrdered By: Freddy Robert on 05-21-2023 Lymphocytes/100 WBC (Bld) 21.2 % 19-41 [facility] Blood monocytes/100 leukocyt esOrdered By: Freddy Robert on 05-21-2023 Monocytes/100 WBC (Bld) 8.4 % 0-10 [facility] Blood platelet mean volumeOr dered By: Freddy Robert on 05-21-2023 Platelet mean volume (Bld) [Entitic vol] 9.5 fL 6.2-12.0 [facility] Determination of erythrocyte mean corpuscular volume (MCV)Ordered By: Freddy Robert on 05-21-2023 MCV (RBC) [Entitic vol] 97.8 fL 81-99 [facility] Erythrocyte sedimentation ra teOrdered By: Freddy Robert on 05-21-2023 ESR (Bld) [Velocity] 3 mm/h 0-30 [facility] Hematocrit Auto (Bld) [Volum e fraction]Ordered By: Freddy Robert on 05-21-2023 Hematocrit (Bld) [Volume fraction] 43.9 % 37-47 [facility] Laboratory - Chemistry and C hemistry - challengeOrdered By: Freddyambrose Robert on 05-21-2023 CO2 [Moles/Vol] 30.0 mmol/L 21.0-32.0 [facility] Urea nitrogen/Creatinine [Mass ratio] 20.2 mg/mg 10-20 [facility] Laboratory - Hematology and Cell countsOrdered By: Freddy Robert on 05-21-2023 Erythrocyte distribution width (RBC) [Entitic vol] 44.8 fL 35.1-43.9 [facility] Erythrocyte distribution width (RBC) [Ratio] 12.4 % 11.6-14.6 [facility] Immature granulocytes/100 WBC (Bld) 1.200 % 0.0-0.9 [facility] Comment on above: IG% - Immature Granu locytes (promyelocytes, myelocytes and metamyelocytes) > 1% indicates that a LEFT SHIFT is Present. MCH (RBC) [Entitic mass] 32.3 pg 27.0-32.0 [facility] Nucleated RBC/100 WBC (Bld) [Ratio] 0 % 0-5 [facility] MCHC Auto (RBC) [Mass/Vol]Or dered By: Freddy Robert on 05-21-2023 MCHC (RBC) [Mass/Vol] 33.0 g/dL 32-36 [facility] No Panel InformationOrdered By: Freddyambrose Robert on 05-21-2023 Estimated Creatinine Clearance Calc 46.42 ml/min [facility] Estimated GFR (MDRD) Amer 66 mL/min >60 [facility] Comment on above: GFR Calc Estimated GFR (MDRD) Non-Af Amer 55 mL/min >60 [facility] Comment on above: Non- GFR Calc Platelets bldOrdered By: Freddy Robert on 05-21-2023 Platelets (Bld) [#/Vol] 155 10*3/uL 150-450 [facility] Serum or plasma calcium alexander urement (mass/volume)Ordered By: Freddy Robert on 05-21-2023 Calcium [Mass/Vol] 9.3 mg/dL 8.5-10.1 [facility] Serum or plasma creatinine m easurement (mass/volume)Ordered By: Freddy Robert on 05-21-2023 Creatinine [Mass/Vol] 1.04 mg/dL 0.55-1.02 [facility] Comment on above: The validity of the calculated GFR & GFRAA in patients over 70 years has not been determined. Clinical correlation is essential. Serum or plasma urea nitroge n measurement (mass/volume)Ordered By: Freddy Robert on 05-21-2023 Urea nitrogen [Mass/Vol] 21 mg/dL -18 [facility] Thin prep Papanicolaou smear with manual screeningOrdered By: Freddy Robert on 05-21-2023 Thin prep Papanicolaou smear with manual screening 02 27- [facility] CBC W Auto Differential pane l (Bld)on 03-31-2023 Basophils (Bld) [#/Vol] 0.08 10*3/uL <0.11 k/uL [facility] Basophils/100 WBC (Bld) 1.2 % [facility] Differential cell count method Nom (Bld) Auto [facility] Eosinophils (Bld) [#/Vol] 0.32 10*3/uL <0.46 k/uL [facility] Eosinophils/100 WBC (Bld) 4.6 % [facility] Erythrocyte distribution width (RBC) [Ratio] 12.4 % 11.5 - 15.0 % [facility] Hematocrit (Bld) [Volume fraction] 41.7 % 36.0 - 46.0 % [facility] Hemoglobin (Bld) [Mass/Vol] 13.1 g/dL 11.5 - 15.5 g/dL [facility] Immature granulocytes (Bld) [#/Vol] 0.06 10*3/uL <0.10 k/uL [facility] Immature granulocytes/100 WBC (Bld) 0.9 % [facility] Lymphocytes (Bld) [#/Vol] 1.63 10*3/uL 1.00 - 4.00 k/uL [facility] Lymphocytes/100 WBC (Bld) 23.5 % [facility] MCH (RBC) [Entitic mass] 32.1 pg 26. 0 - 34.0 pg [facility] MCHC (RBC) [Mass/Vol] 31.4 g/dL 30.5 - 36.0 g/dL [facility] MCV (RBC) [Entitic vol] 102.2 fL High 80.0 - 100.0 fL [facility] Monocytes (Bld) [#/Vol] 0.42 10*3/uL <0.87 k/uL [facility] Monocytes/100 WBC (Bld) 6.1 % [facility] Neutrophils (Bld) [#/Vol] 4.43 10*3/uL 1.45 - 7.50 k/uL [facility] Neutrophils/100 WBC (Bld) 63.7 % [facility] Nucleated RBC (Bld) [#/Vol] <0.01 k/uL [facility] Nucleated RBC/100 WBC (Bld) [Ratio] 0.0 /100 WBC [facility] Platelet mean volume (Bld) [Entitic vol] 9.7 fL 9.0 - 12.7 fL [facility] Platelets (Bld) [#/Vol] 161 10*3/uL 150 - 400 k/uL [facility] RBC (Bld) [#/Vol] 4.08 10*6/uL 3.90 - 5.2 0 m/uL [facility] WBC (Bld) [#/Vol] 6.94 10*3/uL 3.70 - 11. 00 k/uL [facility] HbA1c (Bld)on 03-31-2023 Average glucose Estimated from glycated hemoglobin (Bld) [Mass/Vol] 143 mg/dL [facility] HbA1c (Bld) [Mass fraction] 6.6 % High 4.3 - 5.6 % [facility] INR in Blood by Coagulation assayOrdered By: Sharan Chandra on 03-31-2023 INR Coag (Bld) [Relative time] 2.2 {INR} [facility] Laboratory - CoagulationOrde red By: Sharan Chandra on 03-31-2023 PT Coag (PPP) [Time] 24.2 s 11.7-14.9 [facility] Absolute lymphocyte countOrd ered By: Nedra Rivero on 03-17-2023 Lymphocytes Auto (Unsp spec) [#/Vol] 1.13 10*3/uL 0.83-4.51 [facility] Amorphous sediment detection in urine sediment by light microscopyOrdered By: Nedra Rivero on 03-17-2023 Amorphous sediment LM Ql (Urine sed) 1+ URATE [facility] Basophil percentageOrdered B y: Nedra Rivero on 03-17-2023 Basophils/100 WBC (Bld) 0.4 % 0-1 [facility] Chloride [Moles/Vol] 103 mmol/L 98-107 [facility] Eosinophils/100 WBC (Bld) 1.2 % 0-5 [facility] Glucose [Mass/Vol] 165 mg/dL 74-106 [facility] Comment on above: Fasting Glucose resu lt greater than or equal to 126 mg/dL suggests DIABETES MELLITUS per A.D.A. criteria. Lactate [Moles/Vol] 1.0 mmol/L 0.4-2.0 [facility] Neutrophils (Bld) [#/Vol] 7.2 10*3/uL 2.0-7.7 [facility] Neutrophils/100 WBC (Bld) 78.4 % 47-70 [facility] Potassium [Moles/Vol] 3.8 mmol/L 3.5-5.1 [facility] Sodium [Moles/Vol] 136 mmol/L 136-145 [facility] WBC (Bld) [#/Vol] 9.2 10*3/uL 4.4-11.0 [facility] Basophil percentage >100 SEEN /hpf 0-5 [facility] Bilirubin Test strip Ql (U)O rdered By: Nedra Rivero on 03-17-2023 Bilirubin Ql (U) Negative Negative [facility] Blood erythrocytes count (nu mber/volume)Ordered By: Nedra Rivero on 03-17-2023 RBC (Bld) [#/Vol] 3.99 10*6/uL 4.2-5.4 [facility] Blood hemoglobin measurement (mass/volume)Ordered By: Nedra Rivero on 03-17-2023 Hemoglobin (Bld) [Mass/Vol] 13.0 g/dL 12.0-15.0 [facility] Blood lymphocytes/100 leukoc ytesOrdered By: Nedra Rivero on 03-17-2023 Lymphocytes/100 WBC (Bld) 12.3 % 19-41 [facility] Blood monocytes/100 leukocyt esOrdered By: Nedra Rivero on 03-17-2023 Monocytes/100 WBC (Bld) 7.4 % 0-10 [facility] Blood platelet mean volumeOr dered By: Nedra Rivero on 03-17-2023 Platelet mean volume (Bld) [Entitic vol] 9.4 fL 6.2-12.0 [facility] Determination of erythrocyte mean corpuscular volume (MCV)Ordered By: Nedra Rivero on 03-17-2023 MCV (RBC) [Entitic vol] 97.5 fL 81-99 [facility] Hematocrit Auto (Bld) [Volum e fraction]Ordered By: Nedra Rivero on 03-17-2023 Hematocrit (Bld) [Volume fraction] 38.9 % 37-47 [facility] Influenza virus A and B and SARS-CoV-2 (COVID-19) Ag panel - Upper respiratory specimOrdered By: Nedra Rivero on 03-17-2023 SARS-CoV-2 (COVID-19) RNA RUSSELL+probe Ql (Resp) [facility] Ketones Test strip Ql (U)Ord ered By: Nedra Rivero on 03-17-2023 Ketones Ql (U) Negative Negative [facility] Laboratory - Chemistry and C hemistry - challengeOrdered By: Nedra Rivero on 03-17-2023 CO2 [Moles/Vol] 25.0 mmol/L 21.0-32.0 [facility] Urea nitrogen/Creatinine [Mass ratio] 14.0 mg/mg 10-20 [facility] Laboratory - Hematology and Cell countsOrdered By: Nedra Rivero on 03-17-2023 Erythrocyte distribution width (RBC) [Entitic vol] 44.5 fL 35.1-43.9 [facility] Erythrocyte distribution width (RBC) [Ratio] 12.3 % 11.6-14.6 [facility] Immature granulocytes/100 WBC (Bld) 0.300 % 0.0-0.9 [facility] Comment on above: IG% - Immature Granu locytes (promyelocytes, myelocytes and metamyelocytes) > 1% indicates that a LEFT SHIFT is Present. MCH (RBC) [Entitic mass] 32.6 pg 27.0-32.0 [facility] Nucleated RBC/100 WBC (Bld) [Ratio] 0 % 0-5 [facility] Laboratory - Microbiology an d Antimicrobial susceptibilityOrdered By: Nedra Rivero on 03-17-2023 Bacteria identified Cx Nom (Bld) No growth in 5 days. [facility] MCHC Auto (RBC) [Mass/Vol]Or dered By: Nedra Rivero on 03-17-2023 MCHC (RBC) [Mass/Vol] 33.4 g/dL 32-36 [facility] Mucus LM Ql (Urine sed)Order ed By: Nedra Rivero on 03-17-2023 Mucus Ql (Urine sed) 0 SEEN /hpf [facility] Nitrite Test strip Ql (U)Ord ered By: Nedra Rivero on 03-17-2023 Nitrite Ql (U) Positive Negative [facility] No Panel InformationOrdered By: Nedra Rivero on 03-17-2023 Estimated Creatinine Clearance Calc 43.50 ml/min [facility] Estimated GFR (MDRD) Amer 64 mL/min >60 [facility] Comment on above: GFR Calc Estimated GFR (MDRD) Non-Af Amer 53 mL/min >60 [facility] Comment on above: Non- GFR Calc Platelets bldOrdered By: Marce Rivero on 03-17-2023 Platelets (Bld) [#/Vol] 136 10*3/uL 150-450 [facility] Protein Test strip Ql (U)Ord ered By: Nedra Rivero on 03-17-2023 Protein Ql (U) 100 mg/dl Negative [facility] Serum or plasma calcium alexander urement (mass/volume)Ordered By: Nedra Rivero on 03-17-2023 Calcium [Mass/Vol] 8.9 mg/dL 8.5-10.1 [facility] Serum or plasma creatinine m easurement (mass/volume)Ordered By: Nedra Rivero on 03-17-2023 Creatinine [Mass/Vol] 1.07 mg/dL 0.55-1.02 [facility] Comment on above: The validity of the calculated GFR & GFRAA in patients over 70 years has not been determined. Clinical correlation is essential. Serum or plasma urea nitroge n measurement (mass/volume)Ordered By: Nedra Rivero on 03-17-2023 Urea nitrogen [Mass/Vol] 15 mg/dL 7-18 [facility] Squamous epithelial cells de tection in urine sediment by light microscopyOrdered By: Nedra Rivero on 03-17-2023 Epithelial cells.squamous LM Ql (Urine sed) 0-5 SEEN /hpf 5-10 [facility] Thin prep Papanicolaou smear with manual screeningOrdered By: Nedra Rivero on 03-17-2023 Thin prep Papanicolaou smear with manual screening 8 5-15 [facility] Urine blood detectionOrdered By: Nedra Rivero on 03-17-2023 RBC Ql (U) 250 /ul Negative [facility] RBC Ql (U) 25-50 SEEN /hpf 0-5 [facility] Urine clarityOrdered By: Marce Rivero on 03-17-2023 Clarity (U) Cloudy Clear [facility] Urine color determinationOrd ered By: Nedra Rivero on 03-17-2023 Color (U) Yellow Yellow [facility] Urine glucose detectionOrder ed By: Nedra Rivero on 03-17-2023 Glucose Ql (U) Normal mg/dl Normal [facility] Urine leukocyte esterase det ection by dipstickOrdered By: Nedra Rivero on 03-17-2023 Leukocyte esterase Test strip Ql (U) 500 /ul Negative [facility] Urine pHOrdered By: Nedra edwards on 03-17-2023 pH (U) 5.0 [pH] 5.0 - 8.0 [facility] Urine sediment bacteria coun t by microscopy (number/high power field)Ordered By: Nedra Rivero on 03-17-2023 Bacteria LM.HPF (Urine sed) [#/Area] 1 /[HPF] None Seen [facility] Urine specific gravity measu rementOrdered By: Nedra Rivero on 03-17-2023 Specific gravity (U) [Rel density] 1.015 1.002-1.030 [facility] Urobilinogen Auto test strip Ql (U)Ordered By: Nedra Rivero on 03-17-2023 Urobilinogen Ql (U) Normal mg/dl Normal [facility] UA DIP, URINE (POC)on 2022 BILIRUBIN UA (POCT) Negative Negative [facility] CLARITY UA (POCT) Clear [facility] COLOR UA (POCT) Yellow [facility] GLUCOSE UA (POCT) Negative Negative mg/dL [facility] HEMOGLOBIN/BLOOD UA (POCT) Large Abnormal Negative [facility] KETONE UA (POCT) Negative Negative mg/dL [facility] LEUKOCYTES UA (POCT) Large Abnormal Negative [facility] NITRITE UA (POCT) Negative Negative [facility] PH UA (POCT) 6.0 4.5 - 8.0 [facility] Protein Ql (U) 100 mg/dL Abnormal Negative mg/dL [facility] SPECIFIC GRAVITY UA (POCT) 1.020 1.005 - 1.030 [facility] UROBILINOGEN UA (POCT) 0.2 E.U./dL Carlita l E.U./dL [facility] INR in Blood by Coagulation assayOrdered By: Dr. Chandra on 12-02-2022 INR Coag (Bld) [Relative time] 2.3 {INR} [facility] Laboratory - CoagulationOrde red By: Dr. Chandra on 12-02-2022 PT Coag (PPP) [Time] 24.9 s 11.7-14.9 [facility] INR in Blood by Coagulation assayOrdered By: Dr. Chandra on 09-25-2022 INR Coag (Bld) [Relative time] 2.6 {INR} [facility] Laboratory - CoagulationOrde red By: Dr. Chandra on 09-25-2022 PT Coag (PPP) [Time] 27.3 s 11.7-14.9 [facility] INR in Blood by Coagulation assayOrdered By: Dr. Chandra on 11-08-2022 INR Coag (Bld) [Relative time] 2.7 {INR} [facility] Laboratory - CoagulationOrde red By: Dr. Chandra on 09-02-2022 PT Coag (PPP) [Time] 28.6 s 11.7-14.9 [facility] Absolute lymphocyte counton 07-31-2022 Lymphocytes Auto (Unsp spec) [#/Vol] 1.66 10*3/uL 0.83-4.51 [facility] Work Phone: Basophil percentageon 2021 Basophil percentage 0-5 SEEN /hpf 0-5 [facility] Work Phone: Basophils/100 WBC (Bld) 0.9 % 0-1 [facility] Work Phone: Chloride [Moles/Vol] 106 mmol/L 98-107 [facility] Work Phone: Eosinophils/100 WBC (Bld) 3.7 % 0-5 [facility] Work Phone: Glucose [Mass/Vol] 144 mg/dL 74-106 [facility] Work Phone: Comment on above: Fasting Glucose resu lt greater than or equal to 126 mg/dL suggests DIABETES MELLITUS per A.D.A. criteria. Neutrophils (Bld) [#/Vol] 3.5 10*3/uL 2.0-7.7 [facility] Work Phone: Neutrophils/100 WBC (Bld) 59.6 % 47-70 [facility] Work Phone: Potassium [Moles/Vol] 4.0 mmol/L 3.5-5.1 [facility] Work Phone: Sodium [Moles/Vol] 140 mmol/L 136-145 [facility] Work Phone: WBC (Bld) [#/Vol] 5.9 10*3/uL 4.4-11.0 [facility] Work Phone: Bilirubin Test strip Ql (U)o n 07-31-2022 Bilirubin Ql (U) Negative Negative [facility] Work Phone: Blood erythrocytes count (nu mber/volume)on 07-31-2022 RBC (Bld) [#/Vol] 4.46 10*6/uL 4.2-5.4 [facility] Work Phone: Blood hemoglobin measurement (mass/volume)on 07-31-2022 Hemoglobin (Bld) [Mass/Vol] 14.4 g/dL 12.0-15.0 [facility] Work Phone: [phone] Blood lymphocytes/100 leukoc yteson 07-31-2022 Lymphocytes/100 WBC (Bld) 28.3 % 19-41 [facility] Work Phone: [phone] Blood monocytes/100 leukocyt eson 07-31-2022 Monocytes/100 WBC (Bld) 7.2 % 0-10 [facility] Work Phone: Blood platelet mean volumeon 07-31-2022 Platelet mean volume (Bld) [Entitic vol] 9.9 fL 6.2-12.0 [facility] Work Phone: Determination of erythrocyte mean corpuscular volume (MCV)on 07-31-2022 MCV (RBC) [Entitic vol] 99.1 fL 81-99 [facility] Work Phone: Hematocrit Auto (Bld) [Volum e fraction]on 07-31-2022 Hematocrit (Bld) [Volume fraction] 44.2 % 37-47 [facility] Work Phone: [phone] INR in Blood by Coagulation assayon 07-31-2022 INR Coag (Bld) [Relative time] 3.0 {INR} [facility] Work Phone: [phone] Ketones Test strip Ql (U)on 07-31-2022 Ketones Ql (U) Negative Negative [facility] Work Phone: Laboratory - Chemistry and C hemistry - challengeon 07-31-2022 CO2 [Moles/Vol] 27.0 mmol/L 21.0-32.0 [facility] Work Phone: Natriuretic peptide B (Bld) [Mass/Vol] 104.2 pg/mL 0-100 [facility] Work Phone: [phone] Urea nitrogen/Creatinine [Mass ratio] 13.9 mg/mg 10-20 [facility] Work Phone: [phone] Laboratory - Coagulationon 1 PT Coag (PPP) [Time] 30.4 s 11.7-14.9 [facility] Work Phone: [phone] Laboratory - Hematology and Cell countson 07-31-2022 Erythrocyte distribution width (RBC) [Entitic vol] 45.9 fL 35.1-43.9 [facility] Work Phone: [phone] Erythrocyte distribution width (RBC) [Ratio] 12.6 % 11.6-14.6 [facility] Work Phone: [phone] Immature granulocytes/100 WBC (Bld) 0.300 % 0.0-0.9 [facility] Work Phone: [phone] Comment on above: IG% - Immature Granu locytes (promyelocytes, myelocytes and metamyelocytes) > 1% indicates that a LEFT SHIFT is Present. MCH (RBC) [Entitic mass] 32.3 pg 27.0-32.0 [facility] Work Phone: [phone] Nucleated RBC/100 WBC (Bld) [Ratio] 0 % 0-5 [facility] Work Phone: [phone] MCHC Auto (RBC) [Mass/Vol]on 07-31-2022 MCHC (RBC) [Mass/Vol] 32.6 g/dL 32-36 [facility] Work Phone: [phone] Mucus LM Ql (Urine sed)on Mucus Ql (Urine sed) RARE /hpf [facility] Work Phone: [phone] Nitrite Test strip Ql (U)on 07-31-2022 Nitrite Ql (U) Negative Negative [facility] Work Phone: [phone] Panel Informationon 07-31 Troponin I High Sensitivity 12 pg/mL 3.0-54.0 [facility] Work Phone: Comment on above: Please Note: New [employer] t Units and Gender Specific Reference Ranges. For more information see Policy Stat Procedure [place] High Sensitivity Troponin (TNIH) and attachments. Urine Transitional Epithelial Cells 0-5 SEEN /hpf 0-5 [facility] Work Phone: Estimated Creatinine Clearance Calc 48.55 ml/min [facility] Work Phone: Estimated GFR (MDRD) Amer 69 mL/min >60 [facility] Work Phone: Comment on above: GFR Calc Estimated GFR (MDRD) Non-Af Amer 57 mL/min >60 [facility] Work Phone: Comment on above: Non- GFR Calc Platelets bldon 07-31-2022 Platelets (Bld) [#/Vol] 152 10*3/uL 150-450 [facility] Work Phone: Protein Test strip Ql (U)on 07-31-2022 Protein Ql (U) Negative Negative [facility] Work Phone: Serum or plasma calcium alexander urement (mass/volume)on 07-31-2022 Calcium [Mass/Vol] 9.9 mg/dL 8.5-10.1 [facility] Work Phone: Serum or plasma creatinine m easurement (mass/volume)on 07-31-2022 Creatinine [Mass/Vol] 1.01 mg/dL 0.55-1.02 [facility] Work Phone: Comment on above: The validity of the calculated GFR & GFRAA in patients over 70 years has not been determined. Clinical correlation is essential. Serum or plasma urea nitroge n measurement (mass/volume)on 07-31-2022 Urea nitrogen [Mass/Vol] 14 mg/dL 7-18 [facility] Work Phone: Squamous epithelial cells de tection in urine sediment by light microscopyon 07-31-2022 Epithelial cells.squamous LM Ql (Urine sed) 0 SEEN /hpf 5-10 [facility] Work Phone: Thin prep Papanicolaou smear with manual screeningon 07-31-2022 Thin prep Papanicolaou smear with manual screening 7 5-15 [facility] Work Phone: Urine blood detectionon RBC Ql (U) Negative Negative [facility] [facility] Work Phone: [phone] RBC Ql (U) 0 SEEN /hpf 0-5 [facility] Work Phone: [phone] Urine clarityon 07-31-2022 Clarity (U) Sl. Cloudy Clear [facility] Work Phone: [phone] Urine color determinationon 07-31-2022 Color (U) Yellow Yellow [facility] Work Phone: [phone] Urine glucose detectionon Glucose Ql (U) Normal mg/dl Normal [facility] Work Phone: [phone] Urine leukocyte esterase det ection by dipstickon 07-31-2022 Leukocyte esterase Test strip Ql (U) 500 /ul Negative [facility] Work Phone: Urine pHon 07-31-2022 pH (U) 5.0 [pH] 5.0 - 8.0 [facility] Work Phone: Urine sediment bacteria coun t by microscopy (number/high power field)on 07-31-2022 Bacteria LM.HPF (Urine sed) [#/Area] RARE /hpf None Seen [facility] Work Phone: Urine specific gravity measu rementon 07-31-2022 Specific gravity (U) [Rel density] 1.015 1.002-1.030 [facility] Work Phone: Urobilinogen Auto test strip Ql (U)on 07-31-2022 Urobilinogen Ql (U) Normal mg/dl Normal [facility] Work Phone: Absolute lymphocyte counton 06-19-2022 Lymphocytes Auto (Unsp spec) [#/Vol] 0.97 10*3/uL 0.83-4.51 [facility] Work Phone: Basophil percentageon 2021 Basophil percentage 3.1 mg/dL 2.5-4.9 [facility]: Basophils/100 WBC (Bld) 1.2 % 0-1 [facility] Work Phone: Chloride [Moles/Vol] 106 mmol/L 98-107 [facility] Eosinophils/100 WBC (Bld) 2.4 % 0-5 [facility] Work Phone: Glucose [Mass/Vol] 103 mg/dL 74-106 [facility] Work Phone: Comment on above: Fasting Glucose resu lt from 100 to 125 mg/dL suggests IMPAIRED HOMEOSTASIS per A.D.A. criteria. Neutrophils (Bld) [#/Vol] 2.5 10*3/uL 2.0-7.7 [facility] Work Phone: Neutrophils/100 WBC (Bld) 60.3 % 47-70 [facility] Work Phone: Potassium [Moles/Vol] 4.4 mmol/L 3.5-5.1 [facility] Work Phone: Sodium [Moles/Vol] 138 mmol/L 136-145 [facility] Work Phone: WBC (Bld) [#/Vol] 4.2 10*3/uL 4.4-11.0 [facility] Work Phone: Blood erythrocytes count (nu mber/volume)on 06-19-2022 RBC (Bld) [#/Vol] 3.59 10*6/uL 4.2-5.4 [facility] Work Phone: Blood hemoglobin measurement (mass/volume)on 06-19-2022 Hemoglobin (Bld) [Mass/Vol] 12.0 g/dL 12.0-15.0 [facility] Work Phone: Blood lymphocytes/100 leukoc yteson 06-19-2022 Lymphocytes/100 WBC (Bld) 23.2 % 19-41 [facility] Work Phone: Blood monocytes/100 leukocyt eson 06-19-2022 Monocytes/100 WBC (Bld) 12.4 % 0-10 [facility] Work Phone: [phone] Blood platelet mean volumeon 06-19-2022 Platelet mean volume (Bld) [Entitic vol] 9.9 fL 6.2-12.0 [facility] Work Phone: [phone] Determination of erythrocyte mean corpuscular volume (MCV)on 06-19-2022 MCV (RBC) [Entitic vol] 98.1 fL 81-99 [facility] Work Phone: [phone] Glucose Glucometer (BldC) [M ass/Vol]on 06-19-2022 Glucose [Mass/Vol] 99 mg/dL 74-106 [facility] Work Phone: [phone] Comment on above: MANAGEMENT OF PATIEN T CARE PER NURSING PROTOCOL Hematocrit Auto (Bld) [Volum e fraction]on 06-19-2022 Hematocrit (Bld) [Volume fraction] 35.2 % 37-47 [facility] Work Phone: [phone] Laboratory - Chemistry and C hemistry - challengeon 06-19-2022 CO2 [Moles/Vol] 29.0 mmol/L 21.0-32.0 [facility] Work Phone: [phone] Magnesium [Mass/Vol] 2.1 mg/dL 1.6-2.6 [facility] Work Phone: [phone] Urea nitrogen/Creatinine [Mass ratio] 27.5 mg/mg 10-20 [facility] Work Phone: [phone] Laboratory - Hematology and Cell countson 06-19-2022 Erythrocyte distribution width (RBC) [Entitic vol] 47.4 fL 35.1-43.9 [facility] Work Phone: [phone] Erythrocyte distribution width (RBC) [Ratio] 13.2 % 11.6-14.6 [facility] Work Phone: [phone] Immature granulocytes/100 WBC (Bld) 0.500 % 0.0-0.9 [facility] Work Phone: [phone] Comment on above: IG% - Immature Granu locytes (promyelocytes, myelocytes and metamyelocytes) > 1% indicates that a LEFT SHIFT is Present. MCH (RBC) [Entitic mass] 33.4 pg 27.0-32.0 [facility] Work Phone: [phone] Nucleated RBC/100 WBC (Bld) [Ratio] 0 % 0-5 [facility] Work Phone: [phone] MCHC Auto (RBC) [Mass/Vol]on 06-19-2022 MCHC (RBC) [Mass/Vol] 34.1 g/dL 32-36 [facility] Work Phone: [phone] Panel Informationon 06-19 Estimated Creatinine Clearance Calc 53.88 ml/min [facility] Work Phone: [phone] Estimated GFR (MDRD) Amer 78 mL/min >60 [facility] Work Phone: Comment on above: GFR Calc Estimated GFR (MDRD) Non-Af Amer 64 mL/min >60 [facility] Work Phone: Comment on above: Non- GFR Calc Platelets bldon 06-19-2022 Platelets (Bld) [#/Vol] 109 10*3/uL 150-450 [facility] Work Phone: [phone] Serum or plasma calcium alexander urement (mass/volume)on 06-19-2022 Calcium [Mass/Vol] 8.2 mg/dL 8.5-10.1 [facility] Work Phone: [phone] Serum or plasma creatinine m easurement (mass/volume)on 06-19-2022 Creatinine [Mass/Vol] 0.91 mg/dL 0.55-1.02 [facility] Work Phone: Comment on above: The validity of the calculated GFR & GFRAA in patients over 70 years has not been determined. Clinical correlation is essential. Serum or plasma urea nitroge n measurement (mass/volume)on 06-19-2022 Urea nitrogen [Mass/Vol] 25 mg/dL 7-18 [facility] Work Phone: [phone] Thin prep Papanicolaou smear with manual screeningon 06-19-2022 Thin prep Papanicolaou smear with manual screening 3 5-15 [facility] Work Phone: [phone] Absolute lymphocyte counton 06-18-2022 Lymphocytes Auto (Unsp spec) [#/Vol] 0.74 10*3/uL 0.83-4.51 [facility] Work Phone: [phone] Basophil percentageon 2021 Bilirubin [Mass/Vol] 0.70 mg/dL 0.20-1.00 [facility] Work Phone: [phone] Comment on above: For patients on eltr ombopag therapy, use of Dimension Peterman TBIL is not recommended. Cholesterol [Mass/Vol] 125 mg/dL <200 [facility] Work Phone: [phone] Comment on above: <200 mg/dL Desirable 200-240 mg/dL Borderline >240 mg/dL High Risk Protein [Mass/Vol] 6.5 g/dL 6.4-8.2 [facility] Work Phone: [phone] Triglyceride [Mass/Vol] 101 mg/dL <199 [facility] Work Phone: [phone] Comment on above: The drugs N-Acetylcy steine and Metamizole may falsely depress this assay.Serum Triglycerides Reference Interval Normal <150 mg/dL Borderline high 150 - 199 mg/dL High 200 - 499 mg/dL Very High > or = 500 mg/dL Basophil percentage 0-5 SEEN /hpf 0-5 [facility] Work Phone: Basophils/100 WBC (Bld) 0.5 % 0-1 [facility] Work Phone: [phone] Bilirubin [Mass/Vol] 0.80 mg/dL 0.20-1.00 [facility] Work Phone: [phone] Comment on above: For patients on eltr ombopag therapy, use of Dimension Peterman TBIL is not recommended. Chloride [Moles/Vol] 101 mmol/L 98-107 [facility] Work Phone: [phone] Eosinophils/100 WBC (Bld) 0.2 % 0-5 [facility] Work Phone: Glucose [Mass/Vol] 144 mg/dL 74-106 [facility] Work Phone: Comment on above: Fasting Glucose resu lt greater than or equal to 126 mg/dL suggests DIABETES MELLITUS per A.D.A. criteria. Neutrophils (Bld) [#/Vol] 5.1 10*3/uL 2.0-7.7 [facility] Work Phone: Neutrophils/100 WBC (Bld) 76.6 % 47-70 [facility] Work Phone: Potassium [Moles/Vol] 3.4 mmol/L 3.5-5.1 [facility] Work Phone: Protein [Mass/Vol] 7.2 g/dL 6.4-8.2 [facility] Work Phone: Sodium [Moles/Vol] 135 mmol/L 136-145 [facility] Work Phone: WBC (Bld) [#/Vol] 6.6 10*3/uL 4.4-11.0 [facility] Work Phone: [phone] Bilirubin Test strip Ql (U)o n 06-18-2022 Bilirubin Ql (U) Negative Negative [facility] Work Phone: Blood erythrocytes count (nu mber/volume)on 06-18-2022 RBC (Bld) [#/Vol] 4.05 10*6/uL 4.2-5.4 [facility] Work Phone: Blood hemoglobin measurement (mass/volume)on 06-18-2022 Hemoglobin (Bld) [Mass/Vol] 13.3 g/dL 12.0-15.0 [facility] Work Phone: Blood lymphocytes/100 leukoc yteson 06-18-2022 Lymphocytes/100 WBC (Bld) 11.2 % 19-41 [facility] Work Phone: Blood monocytes/100 leukocyt eson 06-18-2022 Monocytes/100 WBC (Bld) 10.9 % 0-10 [facility] Work Phone: [phone] Blood platelet mean volumeon 06-18-2022 Platelet mean volume (Bld) [Entitic vol] 9.5 fL 6.2-12.0 [facility] Work Phone: [phone] Determination of erythrocyte mean corpuscular volume (MCV)on 06-18-2022 MCV (RBC) [Entitic vol] 98.0 fL 81-99 [facility] Work Phone: [phone] Hematocrit Auto (Bld) [Volum e fraction]on 06-18-2022 Hematocrit (Bld) [Volume fraction] 39.7 % 37-47 [facility] Work Phone: [phone] INR in Blood by Coagulation assayon 06-18-2022 INR Coag (Bld) [Relative time] 2.0 {INR} [facility] Work Phone: [phone] INR Coag (Bld) [Relative time] 1.8 {INR} [facility] Work Phone: [phone] Ketones Test strip Ql (U)on 06-18-2022 Ketones Ql (U) Negative Negative [facility] Work Phone: [phone] Laboratory - Chemistry and C hemistry - challengeon 06-18-2022 ALP [Catalytic activity/Vol] 57 U/L 45-117 [facility] Work Phone: [phone] ALT [Catalytic activity/Vol] 20 U/L - [facility] Work Phone: [phone] Globulin (S) [Mass/Vol] 3.6 g/dL 2.2-4.2 [facility] Work Phone: [phone] ALP [Catalytic activity/Vol] 66 U/L 45-117 [facility] Work Phone: [phone] ALT [Catalytic activity/Vol] 19 U/L -56 [facility] Work Phone: [phone] CO2 [Moles/Vol] 26.0 mmol/L 21.0-32.0 [facility] Work Phone: [phone] Globulin (S) [Mass/Vol] 3.8 g/dL 2.2-4.2 [facility] Work Phone: [phone] Magnesium [Mass/Vol] 1.1 mg/dL 1.6-2.6 [facility] Work Phone: [phone] Urea nitrogen/Creatinine [Mass ratio] 13.3 mg/mg 10-20 [facility] Work Phone: [phone] Natriuretic peptide B (Bld) [Mass/Vol] 136.6 pg/mL 0-100 [facility] Work Phone: [phone] Laboratory - Coagulationon 0 06-18-2022 PT Coag (PPP) [Time] 22.1 s 11.7-14.9 [facility] Work Phone: [phone] PT Coag (PPP) [Time] 20.8 s 11.7-14.9 [facility] Work Phone: [phone] Laboratory - Hematology and Cell countson 06-18-2022 Erythrocyte distribution width (RBC) [Entitic vol] 47.7 fL 35.1-43.9 [facility] Work Phone: [phone] Erythrocyte distribution width (RBC) [Ratio] 13.2 % 11.6-14.6 [facility] Work Phone: [phone] Immature granulocytes/100 WBC (Bld) 0.600 % 0.0-0.9 [facility] Work Phone: [phone] Comment on above: IG% - Immature Granu locytes (promyelocytes, myelocytes and metamyelocytes) > 1% indicates that a LEFT SHIFT is Present. MCH (RBC) [Entitic mass] 32.8 pg 27.0-32.0 [facility] Work Phone: [phone] Nucleated RBC/100 WBC (Bld) [Ratio] 0 % 0-5 [facility] Work Phone: [phone] MCHC Auto (RBC) [Mass/Vol]on 06-18-2022 MCHC (RBC) [Mass/Vol] 33.5 g/dL 32-36 [facility] Work Phone: [phone] Mucus LM Ql (Urine sed)on Mucus Ql (Urine sed) 1+ /hpf [facility] Work Phone: [phone] Nitrite Test strip Ql (U)on 06-18-2022 Nitrite Ql (U) Negative Negative [facility] Work Phone: [phone] Panel Informationon 06-18 Thyroid Stimulating Hormone (TSH) 0.41 uIU/mL 0.358-3.74 [facility] Work Phone: [phone] D-Dimer Quantitative (PE/DVT) 0.28 FEU/ug/m 0.27-0.49 [facility] Work Phone: Comment on above: NORMAL D-Dimer level (<0.50) indicates no DVT or PE. Estimated Creatinine Clearance Calc 46.70 ml/min [facility] Work Phone: [phone] Estimated GFR (MDRD) Amer 66 mL/min >60 [facility] Work Phone: Comment on above: GFR Calc Estimated GFR (MDRD) Non-Af Amer 54 mL/min >60 [facility] Work Phone: Comment on above: Non- GFR Calc Troponin I High Sensitivity 14 pg/mL 3.0-54.0 [facility] Work Phone: Comment on above: Please Note: New Osiris t Units and Gender Specific Reference Ranges. For more information see Policy Stat Procedure Peterman High Sensitivity Troponin (TNIH) and attachments. Platelets bldon 06-18-2022 Platelets (Bld) [#/Vol] 127 10*3/uL 150-450 [facility] Work Phone: [phone] Protein Test strip Ql (U)on 06-18-2022 Protein Ql (U) 30 mg/dl Negative [facility] Work Phone: [phone] Serum or plasma C reactive p rotein measurement (mass/volume)on 06-18-2022 CRP [Mass/Vol] 19.10 mg/L 0.0-3.0 [facility] Work Phone: [phone] Comment on above: C-Reactive Protein ( CRP) provides useful information for thediagnosis, therapy and monitoring of inflammatory processesand associated diseases. For the evaluation of Relative Riskfor Cardiovascular Disease, a High Sensitivity CRP (HSCRP)should be ordered. Serum or plasma albumin alexander urement (mass/volume)on 06-18-2022 Albumin [Mass/Vol] 2.9 g/dL 3.2-5.0 [facility] Work Phone: Albumin [Mass/Vol] 3.4 g/dL 3.2-5.0 [facility] Work Phone: [phone] Serum or plasma albumin/glob ulin mass ratioon 06-18-2022 Albumin/Globulin [Mass ratio] 0.8 {ratio} 0.9-2.4 [facility] Work Phone: [phone] Albumin/Globulin [Mass ratio] 0.9 {ratio} 0.9-2.4 [facility] Work Phone: Serum or plasma calcium alexander urement (mass/volume)on 06-18-2022 Calcium [Mass/Vol] 8.7 mg/dL 8.5-10.1 [facility] Work Phone: Serum or plasma cholesterol in HDL measurement (mass/volume)on 06-18-2022 Cholesterol in HDL [Mass/Vol] 58 mg/dL >40 [facility] Work Phone: Comment on above: The drugs N-Acetylcy steine and Metamizole may falsely depress this assay. Reference Range HDL <40 mg/dL Low HDL Cholesterol HDL >or= 60 mg/dL High HDL Cholesterol Serum or plasma cholesterol in VLDL measurement (mass/volume)on 06-18-2022 Cholesterol in VLDL [Mass/Vol] 20 mg/dL 5-40 [facility] Work Phone: [phone] Serum or plasma creatinine m easurement (mass/volume)on 06-18-2022 Creatinine [Mass/Vol] 1.05 mg/dL 0.55-1.02 [facility] Work Phone: Comment on above: The validity of the calculated GFR & GFRAA in patients over 70 years has not been determined. Clinical correlation is essential. Serum or plasma ferritin gerard surement (mass/volume)on 06-18-2022 Ferritin [Mass/Vol] 307 ng/mL 8-252 [facility] Work Phone: [phone] Serum or plasma low density lipoprotein (LDL) cholesterol measurement (mass/volume)on 06-18-2022 Cholesterol in LDL [Mass/Vol] 47 mg/dL 0-130 [facility] Work Phone: [phone] Serum or plasma urea nitroge n measurement (mass/volume)on 06-18-2022 Urea nitrogen [Mass/Vol] 14 mg/dL 7-18 [facility] Work Phone: [phone] Serum procalcitonin measurem enton 06-18-2022 Procalcitonin [Mass/Vol] ng/mL 0.00-0.09 [facility] Work Phone: Comment on above: A procalcitonin (PCT ) level above 2.0 ng/mL on the first day of ICU admission is associated with a high risk for progression to severe sepsis and/or septic shock. A PCT level below 0.5 ng/mL on the first day of ICU admission is associated with a low risk for progression to severe and/or septic shock. Note: Concentrations <0.5 ng/mL do not exclude an infection on account of localized infections (without systemic signs) which can be associated with such low concentrations, or a systemic infection in its initial stages (<6 hours). Furthermore, increased procalcitonin can occur without infection. PCT concentrations between 0.5 and 2.0 ng/mL should be interpreted taking into account the patient's history. It is recommended to retest PCT within 6-24 hours if any concentrations <2 ng/mL are obtained. Squamous epithelial cells de tection in urine sediment by light microscopyon 06-18-2022 Epithelial cells.squamous LM Ql (Urine sed) 0 SEEN /hpf 5-10 [facility] Work Phone: [phone] Thin prep Papanicolaou smear with manual screeningon 06-18-2022 Thin prep Papanicolaou smear with manual screening 18 U/L 15-37 [facility] Work Phone: [phone] Thin prep Papanicolaou smear with manual screening 20 U/L 1537 [facility] Work Phone: Thin prep Papanicolaou smear with manual screening 8 5-15 [facility] Work Phone: Thin prep Papanicolaou smear with manual screening 262 U/L 84-246 [facility] Work Phone: Urine blood detectionon - RBC Ql (U) 10 /ul Negative [facility] Work Phone: RBC Ql (U) 0-5 SEEN /hpf 0-5 [facility] Work Phone: Urine clarityon 06-18-2022 Clarity (U) Clear Clear [facility] Work Phone: Urine color determinationon 06-18-2022 Color (U) Yellow Yellow [facility] Work Phone: Urine glucose detectionon Glucose Ql (U) Normal mg/dl Normal [facility] Work Phone: [phone] Urine leukocyte esterase det ection by dipstickon 06-18-2022 Leukocyte esterase Test strip Ql (U) 25 /ul Negative [facility] Work Phone: [phone] Urine pHon 06-18-2022 pH (U) 5.0 [pH] 5.0 - 8.0 [facility] Work Phone: [phone] Urine sediment bacteria coun t by microscopy (number/high power field)on 06-18-2022 Bacteria LM.HPF (Urine sed) [#/Area] RARE /hpf None Seen [facility] Work Phone: [phone] Urine specific gravity measu rementon 06-18-2022 Specific gravity (U) [Rel density] 1.020 1.002-1.030 [facility] Work Phone: [phone] Urobilinogen Auto test strip Ql (U)on 06-18-2022 Urobilinogen Ql (U) Normal mg/dl Normal [facility] Work Phone: [phone] Whole blood hemoglobin A1c/t otal hemoglobin ratio (mass fraction)on 06-18-2022 HbA1c (Bld) [Mass fraction] 6.1 % 3.8-5.6 [facility] Work Phone: Comment on above: Normal < 5.7 % Predi abetic 5.7 - 6.4 % Diabetic >or= 6.5 % Please note range changes. Absolute lymphocyte counton 06-17-2022 Lymphocytes Auto (Unsp spec) [#/Vol] 0.60 10*3/uL 0.83-4.51 [facility] Work Phone: Basophil percentageon 2021 Basophils/100 WBC (Bld) 0.4 % 0-1 [facility] Work Phone: Bilirubin [Mass/Vol] 1.00 mg/dL 0.20-1.00 [facility] Work Phone: Comment on above: For patients on eltr ombopag therapy, use of Dimension Peterman TBIL is not recommended. Eosinophils/100 WBC (Bld) 0.3 % 0-5 [facility] Work Phone: Glucose [Mass/Vol] 154 mg/dL 74-106 [facility] Work Phone: Comment on above: Fasting Glucose resu lt greater than or equal to 126 mg/dL suggests DIABETES MELLITUS per A.D.A. criteria. Neutrophils (Bld) [#/Vol] 6.2 10*3/uL 2.0-7.7 [facility] Work Phone: Neutrophils/100 WBC (Bld) 83.0 % 47-70 [facility] Work Phone: Potassium [Moles/Vol] 3.6 mmol/L 3.5-5.1 [facility] Work Phone: WBC (Bld) [#/Vol] 7.4 10*3/uL 4.4-11.0 [facility] Work Phone: Blood erythrocytes count (nu mber/volume)on 06-17-2022 RBC (Bld) [#/Vol] 3.96 10*6/uL 4.2-5.4 [facility] Work Phone: [phone] Blood hemoglobin measurement (mass/volume)on 06-17-2022 Hemoglobin (Bld) [Mass/Vol] 12.9 g/dL 12.0-15.0 [facility] Work Phone: Blood lymphocytes/100 leukoc yteson 06-17-2022 Lymphocytes/100 WBC (Bld) 8.1 % 19-41 [facility] Work Phone: Blood manual differential co mment interpretation (narrative result)on 06-17-2022 Manual differential comment Jerson (Bld) [Interp] SCANNED [facility] Work Phone: Comment on above: LYMPHOPENIA NOTED Blood monocytes/100 leukocyt eson 06-17-2022 Monocytes/100 WBC (Bld) 7.7 % 0-10 [facility] Work Phone: Blood platelet mean volumeon 06-17-2022 Platelet mean volume (Bld) [Entitic vol] 9.3 fL 6.2-12.0 [facility] Work Phone: [phone] Determination of erythrocyte mean corpuscular volume (MCV)on 06-17-2022 MCV (RBC) [Entitic vol] 97.2 fL 81-99 [facility] Work Phone: Hematocrit Auto (Bld) [Volum e fraction]on 06-17-2022 Hematocrit (Bld) [Volume fraction] 38.5 % 37-47 [facility] Work Phone: [phone] INR in Blood by Coagulation assayon 06-17-2022 INR Coag (Bld) [Relative time] 1.8 {INR} [facility] Work Phone: Laboratory - Chemistry and C hemistry - challengeon 06-17-2022 ALP [Catalytic activity/Vol] 70 U/L 45-117 [facility] Work Phone: ALT [Catalytic activity/Vol] 20 U/L 13-56 [facility] Work Phone: [phone] CO2 [Moles/Vol] 25.0 mmol/L 21.0-32.0 [facility] Work Phone: [phone] Urea nitrogen/Creatinine [Mass ratio] 12.7 mg/mg 10-20 [facility] Work Phone: Laboratory - Coagulationon 0 06-17-2022 PT Coag (PPP) [Time] 20.9 s 11.7-14.9 [facility] Work Phone: [phone] Laboratory - Hematology and Cell countson 06-17-2022 Erythrocyte distribution width (RBC) [Entitic vol] 46.9 fL 35.1-43.9 [facility] Work Phone: [phone] Immature granulocytes/100 WBC (Bld) 0.500 % 0.0-0.9 [facility] Work Phone: [phone] Comment on above: IG% - Immature Granu locytes (promyelocytes, myelocytes and metamyelocytes) > 1% indicates that a LEFT SHIFT is Present. MCH (RBC) [Entitic mass] 32.6 pg 27.0-32.0 [facility] Work Phone: No Panel Informationon 06-17 Estimated Creatinine Clearance Calc 55.92 ml/min [facility] Work Phone: [phone] Estimated GFR (MDRD) Amer 74 mL/min >60 [facility] Work Phone: [phone] Comment on above: GFR Calc Estimated GFR (MDRD) Non-Af Amer 61 mL/min >60 [facility] Work Phone: [phone] Comment on above: Non- GFR Calc Troponin I High Sensitivity 10 pg/mL 3.0-54.0 [facility] Work Phone: [phone] Comment on above: Please Note: New Osiris t Units and Gender Specific Reference Ranges. For more information see Policy Stat Procedure Peterman High Sensitivity Troponin (TNIH) and attachments. Platelets bldon 06-17-2022 Platelets (Bld) [#/Vol] 129 10*3/uL 150-450 [facility] Work Phone: [phone] Serum or plasma calcium alexander urement (mass/volume)on 06-17-2022 Calcium [Mass/Vol] 8.9 mg/dL 8.5-10.1 [facility] Work Phone: Serum or plasma creatinine m easurement (mass/volume)on 06-17-2022 Creatinine [Mass/Vol] 0.94 mg/dL 0.55-1.02 [facility] Work Phone: Comment on above: The validity of the calculated GFR & GFRAA in patients over 70 years has not been determined. Clinical correlation is essential. Serum or plasma urea nitroge n measurement (mass/volume)on 06-17-2022 Urea nitrogen [Mass/Vol] 12 mg/dL 7-18 [facility] Work Phone: Thin prep Papanicolaou smear with manual screeningon 06-17-2022 Thin prep Papanicolaou smear with manual screening 9 5-15 [facility] Work Phone: Absolute lymphocyte counton 06-16-2022 Lymphocytes Auto (Unsp spec) [#/Vol] 1.05 10*3/uL 0.83-4.51 [facility] Work Phone: Basophil percentageon 2021 Basophils/100 WBC (Bld) 0.5 % 0-1 [facility] [facility] Work Phone: [phone] Bilirubin [Mass/Vol] 0.80 mg/dL 0.20-1.00 [facility] Work Phone: Comment on above: For patients on eltr ombopag therapy, use of Dimension Peterman TBIL is not recommended. Chloride [Moles/Vol] 105 mmol/L 98-107 [facility] Work Phone: Eosinophils/100 WBC (Bld) 2.4 % 0-5 [facility] Work Phone: [phone] Glucose [Mass/Vol] 136 mg/dL 74-106 [facility] Work Phone: Comment on above: Fasting Glucose resu lt greater than or equal to 126 mg/dL suggests DIABETES MELLITUS per A.D.A. criteria. Neutrophils (Bld) [#/Vol] 5.6 10*3/uL 2.0-7.7 [facility] Work Phone: Neutrophils/100 WBC (Bld) 75.8 % 47-70 [facility] Work Phone: Potassium [Moles/Vol] 3.7 mmol/L 3.5-5.1 [facility] Work Phone: Protein [Mass/Vol] 7.3 g/dL 6.4-8.2 [facility] Work Phone: Sodium [Moles/Vol] 139 mmol/L 136-145 [place] [facility] Work Phone: WBC (Bld) [#/Vol] 7.4 10*3/uL 4.4-11.0 [facility] Work Phone: Basophil percentage 0 SEEN /hpf 0-[address] [facility] Work Phone: Bilirubin Test strip Ql (U)o n 06-16-2022 Bilirubin Ql (U) Negative Negative [facility] Work Phone: [phone] Blood erythrocytes count (nu mber/volume)on 06-16-2022 RBC (Bld) [#/Vol] 4.00 10*6/uL 4.2-5.4 [facility] Work Phone: [phone] Blood hemoglobin measurement (mass/volume)on 06-16-2022 Hemoglobin (Bld) [Mass/Vol] 13.5 g/dL 12.0-15.0 [facility] Work Phone: Blood lymphocytes/100 leukoc yteson 06-16-2022 Lymphocytes/100 WBC (Bld) 14.1 % 19-41 [facility] Work Phone: Blood monocytes/100 leukocyt eson 06-16-2022 Monocytes/100 WBC (Bld) 6.7 % 0-10 [facility] Work Phone: Blood platelet mean volumeon 06-16-2022 Platelet mean volume (Bld) [Entitic vol] 10.0 fL 6.2-12.0 [facility] Work Phone: [phone] Determination of erythrocyte mean corpuscular volume (MCV)on 06-16-2022 MCV (RBC) [Entitic vol] 98.3 fL 81-99 [facility] Work Phone: Hematocrit Auto (Bld) [Volum e fraction]on 06-16-2022 Hematocrit (Bld) [Volume fraction] 39.3 % 37-47 [facility] Work Phone: INR in Blood by Coagulation assayon 06-16-2022 INR Coag (Bld) [Relative time] 3.0 {INR} [facility] Work Phone: Ketones Test strip Ql (U)on 06-16-2022 Ketones Ql (U) Negative Negative [facility] Work Phone: Laboratory - Chemistry and C hemistry - challengeon 06-16-2022 ALP [Catalytic activity/Vol] 93 U/L 45-117 [facility] Work Phone: ALT [Catalytic activity/Vol] 22 U/L 13-56 [facility] Work Phone: CO2 [Moles/Vol] 26.0 mmol/L 21.0-32.0 [facility] Work Phone: Globulin (S) [Mass/Vol] 3.8 g/dL 2.2-4.2 [facility] Work Phone: Urea nitrogen/Creatinine [Mass ratio] 15.9 mg/mg 10-20 [facility] Work Phone: Laboratory - Coagulationon 0 06-16-2022 PT Coag (PPP) [Time] 30.9 s 11.7-14.9 [facility] Work Phone: Laboratory - Hematology and Cell countson 06-16-2022 Erythrocyte distribution width (RBC) [Entitic vol] 47.7 fL 35.1-43.9 [facility] Work Phone: Erythrocyte distribution width (RBC) [Ratio] 13.2 % 11.6-14.6 [facility] Work Phone: Immature granulocytes/100 WBC (Bld) 0.500 % 0.0-0.9 [facility] Work Phone: Comment on above: IG% - Immature Granu locytes (promyelocytes, myelocytes and metamyelocytes) > 1% indicates that a LEFT SHIFT is Present. MCH (RBC) [Entitic mass] 33.8 pg 27.0-32.0 [facility] Work Phone: Nucleated RBC/100 WBC (Bld) [Ratio] 0 % 0-5 [facility] Work Phone: [phone] MCHC Auto (RBC) [Mass/Vol]on 06-16-2022 MCHC (RBC) [Mass/Vol] 34.4 g/dL 32-36 [facility] Work Phone: Mucus LM Ql (Urine sed)on Mucus Ql (Urine sed) 0 SEEN /hpf [facility] Work Phone: [phone] Nitrite Test strip Ql (U)on 06-16-2022 Nitrite Ql (U) Negative Negative [facility] Work Phone: [phone] No Panel Informationon 06-16 Estimated Creatinine Clearance Calc 45.83 ml/min [facility] Work Phone: [phone] Estimated GFR (MDRD) Amer 64 mL/min >60 [facility] Work Phone: [phone] Comment on above: GFR Calc Estimated GFR (MDRD) Non-Af Amer 53 mL/min >60 [facility] Work Phone: [phone] Comment on above: Non- GFR Calc Platelets bldon 06-16-2022 Platelets (Bld) [#/Vol] 136 10*3/uL 150-450 [facility] Work Phone: [phone] Protein Test strip Ql (U)on 06-16-2022 Protein Ql (U) Negative Negative [facility] Work Phone: [phone] Serum or plasma albumin alexander urement (mass/volume)on 06-16-2022 Albumin [Mass/Vol] 3.5 g/dL 3.2-5.0 [facility] Work Phone: [phone] Serum or plasma albumin/glob ulin mass ratioon 06-16-2022 Albumin/Globulin [Mass ratio] 0.9 {ratio} 0.9-2.4 [facility] Work Phone: Serum or plasma calcium alexander urement (mass/volume)on 06-16-2022 Calcium [Mass/Vol] 9.0 mg/dL 8.5-10.1 [facility] Work Phone: Serum or plasma creatinine m easurement (mass/volume)on 06-16-2022 Creatinine [Mass/Vol] 1.07 mg/dL 0.55-1.02 [facility] Work Phone: Comment on above: The validity of the calculated GFR & GFRAA in patients over 70 years has not been determined. Clinical correlation is essential. Serum or plasma urea nitroge n measurement (mass/volume)on 06-16-2022 Urea nitrogen [Mass/Vol] 17 mg/dL 7-18 [facility] Work Phone: Squamous epithelial cells de tection in urine sediment by light microscopyon 06-16-2022 Epithelial cells.squamous LM Ql (Urine sed) 0 SEEN /hpf 5-10 [facility] Work Phone: Thin prep Papanicolaou smear with manual screeningon 06-16-2022 Thin prep Papanicolaou smear with manual screening 19 U/L 15-37 [facility] Work Phone: Thin prep Papanicolaou smear with manual screening 8 5-15 [facility] Work Phone: Urine blood detectionon 05-27 RBC Ql (U) 10 /ul Negative [facility] Work Phone: RBC Ql (U) 0 SEEN /hpf 0-5 [facility] Work Phone: Urine clarityon 06-16-2022 Clarity (U) Clear Clear [facility] Work Phone: Urine color determinationon 06-16-2022 Color (U) Yellow Yellow [facility] Work Phone: Urine glucose detectionon Glucose Ql (U) Normal mg/dl Normal [facility] Work Phone: Urine leukocyte esterase det ection by dipstickon 06-16-2022 Leukocyte esterase Test strip Ql (U) Negative Negative [facility] Work Phone: Urine pHon 06-16-2022 pH (U) 6.0 [pH] 5.0 - 8.0 [facility] Work Phone: Urine sediment bacteria coun t by microscopy (number/high power field)on 06-16-2022 Bacteria LM.HPF (Urine sed) [#/Area] 0 /[HPF] None Seen [facility] Work Phone: Urine specific gravity measu rementon 06-16-2022 Specific gravity (U) [Rel density] 1.015 1.002-1.030 [facility] Work Phone: Urobilinogen Auto test strip Ql (U)on 06-16-2022 Urobilinogen Ql (U) Normal mg/dl Normal [facility] Work Phone: 2019 CORONAVIRUSon SARS-CoV-2 (COVID-19) RNA RUSSELL+probe Ql (Resp) SARS-CoV-2 (Agent of COVID-19) Not Detected by RT-PCR or equivalent method. Not Detected [facility] XR CHEST 2V FRONTAL/LATon [facility] XR Chest PA and Lateralon IMPRESSION: Stable chronic interstitial changes.. No acute cardiopulmonary process. [employer]quet [employer] Layer'S Helper: PSCB Transcribe Date/Time: May 06 2022 12:00P Dictated by : TAMY RAMIREZ MD This examination was interpreted and the report reviewed and electronically signed by: TAMY RAMIREZ MD on May 06 2022 12:03PM EST ZZZ_DO_NOT_U SE_DIVISION OF RADIOLOGY * * *Final Report* * [...] degenerative change. No bony destructive process noted. ZZZ_DO_NOT_U SE_DIVISION OF RADIOLOGY Provider, [facility] [place] - 05/06/2022 * * *Final Report* * [...] chronic interstitial changes.. No acute cardiopulmonary process. [employer] Layer'S Helper: JULIOCESAR Transcribe Date/Time: May 06 2022 12:00P Dictated by : TAMY RAMIREZ MD This examination was interpreted and the report reviewed and electronically signed by: TAMY RAMIREZ MD on May 06 2022 12:03PM EST [facility] Radiology Study observation (narrative) Corina r[facility] XR Chest PA and LateralOrder ed By: Ccf Provider on 05-06-2022 [facility] INR in Blood by Coagulation assayon 04-02-2022 INR Coag (Bld) [Relative time] 2.2 {INR} [facility] Work Phone: Laboratory - Coagulationon 0 04-02-2022 PT Coag (PPP) [Time] 24.5 s 11.7-14.9 [facility] Work Phone: HEMOGLOBIN A1C (POC)on 03-25 HbA1c (Bld) [Mass fraction] 6.0 % 4.2 - 5.6 % [facility] INR in Blood by Coagulation assayon 03-18-2022 INR Coag (Bld) [Relative time] 1.4 {INR} [facility] Work Phone: Laboratory - Coagulationon 0 03-18-2022 PT Coag (PPP) [Time] 16.8 s 11.7-14.9 [facility] Work Phone: INR in Blood by Coagulation assayon 01-07-2022 INR Coag (Bld) [Relative time] 2.2 {INR} [facility] Work Phone: Laboratory - Coagulationon 0 01-07-2022 PT Coag (PPP) [Time] 23.7 s 11.7-14.9 [facility] Work Phone: INR in Blood by Coagulation assayon 12-04-2021 INR Coag (Bld) [Relative time] 2.4 {INR} [facility] Work Phone: Laboratory - Coagulationon 0 12-04-2021 PT Coag (PPP) [Time] 25.5 s 11.7-14.9 [facility] Work Phone: INR in Blood by Coagulation assayon 10-29-2021 INR Coag (Bld) [Relative time] 2.6 {INR} [facility] Work Phone: Laboratory - Coagulationon 0 10-29-2021 PT Coag (PPP) [Time] 26.9 s 11.7-14.9 [facility] Work Phone: [phone] INR in Blood by Coagulation assayon 10-14-2021 INR Coag (Bld) [Relative time] 1.5 {INR} [facility] Work Phone: Laboratory - Coagulationon 1 12-15-2020 PT Coag (PPP) [Time] 17.0 s 11.7-14.9 [facility] Work Phone: Basophil percentageon 2020 Bilirubin [Mass/Vol] 0.50 mg/dL 0.20-1.00 [facility] Work Phone: [phone] Comment on above: For patients on eltr ombopag therapy, use of Dimension Peterman TBIL is not recommended. Cholesterol [Mass/Vol] 143 mg/dL <200 [facility] Work Phone: Comment on above: <200 mg/dL Desirable 200-240 mg/dL Borderline >240 mg/dL High Risk Protein [Mass/Vol] 7.7 g/dL 6.4-8.2 [facility] Work Phone: [phone] Triglyceride [Mass/Vol] 135 mg/dL [facility] Work Phone: [phone] Comment on above: The drugs N-Acetylcy steine and Metamizole may falsely depress this assay.Serum Triglycerides Reference Interval Normal <150 mg/dL Borderline high 150 - 199 mg/dL High 200 - 499 mg/dL Very High > or = 500 mg/dL Direct bilirubinon Bilirubin.direct [Mass/Vol] 0.14 mg/dL 0.00-0.30 [facility] Work Phone: [phone] Laboratory - Chemistry and C hemistry - challengeon 09-26-2021 ALP [Catalytic activity/Vol] 89 U/L 45-117 [facility] Work Phone: [phone] ALT [Catalytic activity/Vol] 20 U/L 13-56 [facility] Work Phone: [phone] Globulin (S) [Mass/Vol] 4.1 g/dL 2.2-4.2 W [facility] Work Phone: Serum or plasma albumin alexander urement (mass/volume)on 09-26-2021 Albumin [Mass/Vol] 3.6 g/dL 3.2-5.0 [facility] Work Phone: Serum or plasma cholesterol in HDL measurement (mass/volume)on 09-26-2021 Cholesterol in HDL [Mass/Vol] 63 mg/dL [facility] Work Phone: Comment on above: The drugs N-Acetylcy steine and Metamizole may falsely depress this assay. Reference Range HDL <40 mg/dL Low HDL Cholesterol HDL >or= 60 mg/dL High HDL Cholesterol Serum or plasma cholesterol in VLDL measurement (mass/volume)on 09-26-2021 Cholesterol in VLDL [Mass/Vol] 27 mg/dL 5-40 [facility] Work Phone: Serum or plasma low density lipoprotein (LDL) cholesterol measurement (mass/volume)on 09-26-2021 Cholesterol in LDL [Mass/Vol] 53 mg/dL 0-130 [facility] Work Phone: Thin prep Papanicolaou smear with manual screeningon 09-26-2021 Thin prep Papanicolaou smear with manual screening 20 U/L 15-37 [facility] Work Phone: ANES POSTPROC EVALon 021 ANES POSTPROC EVAL HNO ID: [id number] Author: Farhat Lino Service: Anesthesiology Author Type: Anesthesiologist Type: Anesthesia Postprocedure Evaluation Filed: 01/23/2021 12:53 PM Note Text: POST ANESTHESIA EVALUATION NOTE : 1945 Procedure Summary Date: 01/23/21 Room / Location: [facility] OR02 / [place] OR Anesthesia Start: 1030 Anesthesia Stop: 1116 [...] of care. No complications documented. SIGNATURE: Farhat Lnio MD PATIENT NAME: Keisha Red DATE: January 23, 2021 TIME: 12:52 PM CSN: [id number] [facility] ANES PRE-OPon 01-23-2021 ANES PRE-OP HNO ID: [id number] Author: Lorena Mccrary Service: Anesthesiology Author Type: Anesthesiologist Type: Anesthesia Preprocedure Evaluation Filed: 01/23/2021 9:16 AM Note Text: ANESTHESIOLOGY DAY OF SURGERY NOTE : 1945 Procedure(s) (LRB): DECOMPRESSION NERVE MEDIAN CARPAL TUNNEL (Bilateral) RELEASE TRIGGER FINGER (Left) Surgeon(s): Pete Goldsmith Estimated body mass index is 30.11 kg/m? as calculated from the following: Height as of this encounter: 172.7 cm (5' 7.99). Weight as of this encounter: 89.8 kg [...] (97.5 ?F) 01/23/21900 SpO2 95 % 01/23/21900 Facility-Administere d Medications as of 01/23/2021 Medication Dose Route [...] 1 tablet by mouth once daily. - budesonide-formotero l (SYMBICORT) 160-4.5 mcg/actuation inhaler Inhale 2 Puffs [...] January 23, 2021 TIME: 9:15 AM CSN: [id number] [facility] OPERATIVE NOon 01-23-2021 OPERATIVE NO HNO ID: [id number] Author: Pete Goldsmith MD Service: Orthopaedic Surgery Author Type: Physician Type: Operative Report Filed: 02/24/2021 5:43 PM Note Text: [place] [address] [place] OPERATIVE REPORT NAME:Keisha Red [id number] DATE: January 23, 2021 AGE: [id number] year [...] resistance. Subsequently, I selected a mini meniscotome [place] blade and slid this in the protective guide, completely dividing the transverse carpal ligament. Mini rakes were used to view up the wound to visualize for complete release and a [place] elevator was used to palpate for complete [...] the transec (more content not included)... Normal [facility] Microbiology: Culture, Urine on 08-12-2017 CUUR Trimethoprim/Sulfame tho $ <=20 S Invalid Interpretation Code [facility] [employer] Work Phone: [phone] Office Visit: UC: bladder in fectionon 08-10-2017 Bilirubin Ql (U) Negative Invalid Interpretation Code [facility] Work Phone: [phone] blood in urine (hemoglobin) by dipstick 2+ Invalid Interpretation Code [facility] Work Phone: [phone] Dietary management education, guidance, and counseling (procedure) yes Invalid Interpretation Code [facility] Work Phone: [phone] Documentation of current medications (procedure) Done Invalid Interpretation Code [facility] Work Phone: [phone] Fall risk assessment No Invalid Interpretation Code [facility] Work Phone: [phone] specific gravity, urine 1.010 Invalid Interpretation Code [facility] Work Phone: [phone] Tobacco smoking status NHIS Never Invalid Interpretation Code [facility] Work Phone: [phone] Tobacco use CPHS Never smoker Invalid Interpretation Code [facility] Work Phone: [phone] Urine, appearance clear Invalid Interpretation Code [facility] Work Phone: [phone] Urine, color lt. yellow Invalid Interpretation Code [facility] Work Phone: [phone] Urine, glucose presence Negative Invalid Interpretation Code [facility] Work Phone: [phone] Urine, ketones presence Negative Invalid Interpretation Code [facility] Work Phone: [phone] Urine, leukocyte esterase presence 2+ Invalid Interpretation Code [facility] Work Phone: [phone] Urine, nitrite presence Negative Invalid Interpretation Code [facility] Work Phone: [phone] Urine, pH 5.0 [pH] Invalid Interpretation Code [facility] Phone: [phone] Urine, protein Negative Invalid Interpretation Code [facility] Work Phone: [phone] Urine, urobilinogen presence Negative Invalid Interpretation Code [facility] Work Phone: [phone] Lab Report: Lipid Profileon 07-27-2017 Cholesterol 138 mg/dL Invalid Interpretation Code 200 [facility] Work Phone: [phone] HDL Cholesterol 55 mg/dL Invalid Interpretation Code [facility] Work Phone: [phone] LDL Cholesterol 51 mg/dL Invalid Interpretation Code 0-130 [facility] Work Phone: [phone] Triglyceride 162 mg/dL Invalid Interpretation Code [facility] Work Phone: [phone] very low density lipoproteins 32 mg/dL Invalid Interpretation Code 5-40 [facility] Phone: [phone] Lab Report: Liver Profileon 07-27-2017 Alanine aminotransferase (ALT) 23 U/L Invalid Interpretation Code 12-78 [facility] Work Phone: [phone] Albumin 2.2 g/dL Low 3.4-5.0 [employer] Work Phone: [phone] Alkaline phosphatase (ALP) 82 U/L Invalid Interpretation Code 45-117 [facility] Work Phone: [phone] Aspartate aminotransferase (AST) 32 U/L Invalid Interpretation Code 15-37 [facility] Work Phone: [phone] Bilirubin (direct) 0.10 mg/dL Invalid Interpretation Code 0.00-0.30 [facility] Work Phone: [phone] Bilirubin (total) 0.60 mg/dL Invalid Interpretation Code 0.20-1.00 [facility] Work Phone: [phone] Globulin 5.6 g/dL High 2.3-3.5 [facility] Work Phone: [phone] Protein 7.8 g/dL Invalid Interpretation Code 6.4-8.2 [facility] Work Phone: [phone] Chart Maintenanceon 07-23-20 17 Left ventricular Ejection fraction 75 % Invalid Interpretation Code [facility] Work Phone: [phone] Coumadin Management: Warfari n Cal[place] 07-14-2017 INR Coag RelTime (Bld) 2 to 3 Invalid Interpretation Code [facility] Work Phone: [phone] INR Coag RelTime (Bld) Hospital lab Invalid Interpretation Code [facility] Work Phone: [phone] INR Coag RelTime (PPP) 2.6 {INR} Invalid Interpretation Code [facility] Work Phone: [phone] Prothrombin time (PT) Coag time (PPP) 26.6 s Invalid Interpretation Code [facility] Work Phone: [phone] Replaced Document: Prothromb in Time w/INRon 07-14-2017 Prothrombin time (PT) Coag time (PPP) 26.6 s High 11.7-14.9 [facility] Work Phone: [phone] Chart Maintenanceon 03-26-20 17 Hemoglobin A1c/Hemoglobin.total mass fraction (Bld) 6.4 % Invalid Interpretation Code [facility] Work Phone: [phone] Replaced Document: Queenie Ma 02-04-2017 EKG QRS axis 25 deg Invalid Interpretation Code [facility] Phone: [phone] Interpretation Atrial Rhythm -First degree A-V block P:QRS - 1:1, Abnormal P axis, H Rate 69 Erik = 308-Poor R-wave progression -may be secondary to pulmonary disease consider old anterior infarct. Low voltage -possible pulmonary disease. ABNORMAL Invalid Interpretation Code [facility] Work Phone: [phone] P [place] -90 deg Invalid Interpretation Code [facility] Work Phone: [phone] LA Interval 308 ms Invalid Interpretation Code [facility] Work Phone: [phone] Pulse (Heart Rate) 69 /min Invalid Interpretation Code [facility] Phone: [phone] QRS Duration 80 ms Invalid Interpretation Code [facility] Phone: [phone] QT Interval new path ms Invalid Interpretation Code [facility] Work Phone: [phone] T [place] 33 deg Invalid Interpretation Code [facility] Phone: [phone] Lab Report: Basic Metabolic Profile (BMP)on 01-16-2017 Anion gap 4 mmol/L Low 5-15 [facility] Phone: [phone] BUN/Creatinine Ratio 17.7 RATIO Invalid Interpretation Code 10-20 [facility] Phone: [phone] Calcium 9.2 mg/dL Invalid Interpretation Code 8.5-10.1 [facility] Phone: [phone] Chloride 105 mmol/L Invalid Interpretation Code 98-107 [facility] Work Phone: [phone] CO2 28.0 mmol/L Invalid Interpretation Code 21.0-32.0 [facility] Phone: [phone] Creatinine 63.01 mL/min Invalid Interpretation Code [facility] Phone: [phone] Creatinine 0.85 mg/dL Invalid Interpretation Code 0.55-1.02 [facility] Phone: [phone] eGFR (non-black) 85 mL/min/{1.73_m2} Invalid Interpretation Code >60 [facility] Phone: eGFR (non-black) 70 mL/min/{1.73_m2} Invalid Interpretation Code >60 [facility] Work Phone: [phone] Glucose mass conc 139 mg/dL High 70-110 [facility] Work Phone: [phone] Potassium molar conc 3.7 mmol/L Invalid Interpretation Code 3.5-5.1 [facility] Work Phone: [phone] Sodium 137 mmol/L Invalid Interpretation Code 136-145 [facility] Work Phone: [phone] Urea nitrogen 15 mg/dL Invalid Interpretation Code 7-18 [facility] Work Phone: [phone] Culture, urine Bacteria identified Cx Nom (U) Mixed Gram Pos & Gram Neg Org [facility] Work Phone: Influenza virus A and B and SARS-CoV-2 (COVID-19) Ag panel - Upper respiratory specim SARS-CoV-2 & FLU Antigen (Rapid) SARS-CoV-2 (COVID 19) [facility] Work Phone: Laboratory - Microbiology an d Antimicrobial susceptibility Bacteria identified Cx Nom (Bld) No growth in 5 days. [facility] Work Phone: Respiratory pathogens DNA and RNA 12b panel RUSSELL+probe (Unsp spec) [facility] Work Phone: No Panel Information Respiratory Panel (PCR) W [facility] Work Phone: Vital Signs Date Time Vital Sign Value Performing Clinician Facility 03-13-2025 07:43-0400 Diastolic blood pressure 72 mm[Hg] Whitney Hammond APRN.RADAR ENGINEERING TEACHER Work Phone: [facility] 03-13-2025 07:43-0400 Systolic blood pressure 120 mm[Hg] Whitney Hammond APRN.RADAR ENGINEERING TEACHER Work Phone: [facility] 03-13-2025 07:41-0400 Body mass index (BMI) [Ratio] 28.59 kg/m2 Whitney Hammond APRN.RADAR ENGINEERING TEACHER Work Phone: [facility] 03-13-2025 07:41-0400 Body weight 85.3 kg Whitney Stephany HYDRATION PLANT OPERATOR.RADAR ENGINEERING TEACHER Work Phone: [facility] 03-13-2025 07:41-0400 Heart rate 80 /min Whitney Hammond HYDRATION PLANT OPERATOR.RADAR ENGINEERING TEACHER Work Phone: [facility] 03-13-2025 07:41-0400 SaO2% (BldA) [Mass fraction] 98 % Whitney Hammond HYDRATION PLANT OPERATOR.RADAR ENGINEERING TEACHER Work Phone: [facility] 02-09-2025 15:10-0400 Body height 172.7 cm Xochitl Castrejon MD Work Phone: [facility] 02-09-2025 15:10-0400 Body mass index (BMI) [Ratio] 29.07 kg/m2 Xochitl Castrejon MD Work Phone: [facility] 02-09-2025 15:10-0400 Body weight 86.73 kg Xochitl Castrejon MD Work Phone: [facility] 02-09-2025 15:10-0400 Diastolic blood pressure 71 mm[Hg] Xochitl Castrejon MD Work Phone: [facility] 02-09-2025 15:10-0400 Heart rate 61 /min Xochitl Castrejon MD Work Phone: [facility] 02-09-2025 15:10-0400 SaO2% (BldA) [Mass fraction] 98 % Xochitl Castrejon MD Work Phone: [facility] 02-09-2025 15:10-0400 Systolic blood pressure 109 mm[Hg] Xochitl Castrejon MD Work Phone: [facility] 02-07-2025 14:13-0400 Body mass index (BMI) [Ratio] 30.6 kg/m2 Clarisse Joyce HYDRATION PLANT OPERATOR.RADAR ENGINEERING TEACHER Work Phone: [facility] 02-07-2025 14:13-0400 Body temperature 97.39 [degF] Clarisse Joyce HYDRATION PLANT OPERATOR.RADAR ENGINEERING TEACHER Work Phone: [facility] 02-07-2025 14:13-0400 Body weight 86 kg Clarisse Joyce HYDRATION PLANT OPERATOR.RADAR ENGINEERING TEACHER Work Phone: [facility] 02-07-2025 14:13-0400 Diastolic blood pressure 69 mm[Hg] Clarisse Joyce HYDRATION PLANT OPERATOR.RADAR ENGINEERING TEACHER Work Phone: [facility] 02-07-2025 14:13-0400 Heart rate 92 /min Clarisse Joyce HYDRATION PLANT OPERATOR.RADAR ENGINEERING TEACHER Work Phone: [facility] 02-07-2025 14:13-0400 Respiratory rate 20 /min Clarisse Joyce HYDRATION PLANT OPERATOR.RADAR ENGINEERING TEACHER Work Phone: [facility] 02-07-2025 14:13-0400 SaO2% (BldA) [Mass fraction] 94 % Clarisse Joyce HYDRATION PLANT OPERATOR.RADAR ENGINEERING TEACHER Work Phone: [facility] 02-07-2025 14:13-0400 Systolic blood pressure 130 mm[Hg] Clarisse Joyce HYDRATION PLANT OPERATOR.RADAR ENGINEERING TEACHER Work Phone: [facility] 01-23-2025 22:13-0400 Body mass index (BMI) [Ratio] 29.2 kg/m2 Dr. Joon Lopez MD Work Phone: [facility] 01-05-2025 10:20-0400 Body mass index (BMI) [Ratio] 30.6 kg/m2 Krislyn Aberegg PA Work Phone: [facility] 01-05-2025 10:20-0400 Body temperature 97.39 [degF] Krislyn Aberegg PA Work Phone: [facility] 01-05-2025 10:20-0400 Body weight 86 kg Krislyn Aberegg PA Work Phone: [facility] 01-05-2025 10:20-0400 Diastolic blood pressure 86 mm[Hg] Krislyn Aberegg PA Work Phone: [facility] 01-05-2025 10:20-0400 Heart rate 83 /min Krislyn Aberegg PA Work Phone: [facility] 01-05-2025 10:20-0400 Respiratory rate 20 /min Krislyn Aberegg PA Work Phone: [facility] 01-05-2025 10:20-0400 SaO2% (BldA) [Mass fraction] 97 % Krislyn Aberegg PA Work Phone: [facility] 01-05-2025 10:20-0400 Systolic blood pressure 135 mm[Hg] Krislyn Aberegg PA Work Phone: [facility] 01-04-2025 17:16-0400 Body height 172.[address] Joon Lopez MD Work Phone: 7(150)732-554449 [place] [address] 01-04-2025 17:16-0400 Body mass index (BMI) [Ratio] 27.5 kg/m2 Dr. Joon Lopez MD Work Phone: 4(218)742-025249 [place] [address] 01-04-2025 17:16-0400 Body temperature 97.5 [degF] Dr. Joon Lopez MD Work Phone: 9(693)670-849849 [place] [address] 01-04-2025 17:16-0400 Body weight 82.[address] Joon Lopez MD Work Phone: 3(839)200-567849 [place] [address] 01-04-2025 17:16-0400 Diastolic blood pressure 68 mm[Hg] Dr. Joon Lopez MD Work Phone: 3(131)753-185449 [place] [address] 01-04-2025 17:16-0400 Heart rate 74 /min Dr. Joon Lopez MD Work Phone: 0(100)808-325800 [place] [address] 01-04-2025 17:16-0400 Respiratory rate 15 /min Dr. Joon Lopez MD Work Phone: 8(558)996-967900 [place] [address] 01-04-2025 17:16-0400 SaO2% (BldA) [Mass fraction] 98 % Dr. Joon Lopez MD Work Phone: 1(450)240-105549 [place] [address] 01-04-2025 17:16-0400 Systolic blood pressure 144 mm[Hg] Dr. Joon Lopez MD Work Phone: 2(885)218-627749 [place] [address] 12-09-2024 07:38-0500 Body mass index (BMI) [Ratio] 27.3 kg/m2 Dr. Joon Lopez MD Work Phone: 2(924)048-887249 [place] [address] 12-09-2024 07:38-0500 Body temperature 96.9 [degF] Dr. Joon Lopez MD Work Phone: 7(095)341-934849 [place] [address] 12-09-2024 07:38-0500 Body weight 81.[address] Joon Lopez MD Work Phone: 2(149)263-234949 [place] [address] 12-09-2024 07:38-0500 Diastolic blood pressure 73 mm[Hg] Dr. Joon Lopez MD Work Phone: 7(584)652-615149 [place] [address] 12-09-2024 07:38-0500 Heart rate 88 /min Dr. Joon Lopez MD Work Phone: 8(467)823-949549 [place] [address] 12-09-2024 07:38-0500 Respiratory rate 18 /min Dr. Joon Lopez MD Work Phone: 7(644)140-276549 [place] [address] 12-09-2024 07:38-0500 SaO2% (BldA) [Mass fraction] 96 % Dr. Joon Lopez MD Work Phone: 0(093)157-083649 [place] [address] 12-09-2024 07:38-0500 Systolic blood pressure 133 mm[Hg] Dr. Joon Lopez MD Work Phone: [facility] 12-07-2024 10:21-0500 Body height 167.6 cm Joon Lopez MD Work Phone: [facility] 12-07-2024 10:21-0500 Body mass index (BMI) [Ratio] 28.96 kg/m2 Joon Lopez MD Work Phone: [facility] 12-07-2024 10:21-0500 Body temperature 97.59 [degF] Joon Lopez MD Work Phone: [facility] 12-07-2024 10:21-0500 Body weight 81.4 kg Joon Lopez MD Work Phone: [facility] 12-07-2024 10:21-0500 Diastolic blood pressure 62 mm[Hg] Joon Lopez MD Work Phone: [facility] 12-07-2024 10:21-0500 Heart rate 89 /min Joon Lopez MD Work Phone: [facility] 12-07-2024 10:21-0500 Respiratory rate 16 /min Joon Lopez MD Work Phone: [facility] 12-07-2024 10:21-0500 SaO2% (BldA) [Mass fraction] 96 % Joon Lopez MD Work Phone: [facility] 12-07-2024 10:21-0500 Systolic blood pressure 112 mm[Hg] Joon Lopez MD Work Phone: [facility] 11-26-2024 01:35-0500 Body mass index (BMI) [Ratio] 29.2 kg/m2 Dr. Joon Lopez MD Work Phone: [facility] 11-10-2024 11:38-0500 Body mass index (BMI) [Ratio] 28.68 kg/m2 Xochitl Castrejon MD Work Phone: [facility] 11-10-2024 11:38-0500 Body weight 80.6 kg Xochitl Castrejon MD Work Phone: [facility] 11-10-2024 11:38-0500 Diastolic blood pressure 76 mm[Hg] Xochitl Castrejon MD Work Phone: [facility] 11-10-2024 11:38-0500 Heart rate 68 /min Xochitl Castrejon MD Work Phone: [facility] 11-10-2024 11:38-0500 SaO2% (BldA) [Mass fraction] 96 % Xochitl Castrejon MD Work Phone: [facility] 11-10-2024 11:38-0500 Systolic blood pressure 106 mm[Hg] Xochitl Castrejon MD Work Phone: [facility] 09-24-2024 23:41-0500 Body mass index (BMI) [Ratio] 29.2 kg/m2 Dr. Joon Lopez MD Work Phone: [facility] 09-09-2024 12:03-0500 Body mass index (BMI) [Ratio] 29.04 kg/m2 Whitney Stephany HYDRATION PLANT OPERATOR.RADAR ENGINEERING TEACHER Work Phone: [facility] 09-09-2024 12:03-0500 Body weight 81.6 kg Whitney Stephany HYDRATION PLANT OPERATOR.RADAR ENGINEERING TEACHER Work Phone: [facility] 09-09-2024 12:03-0500 Diastolic blood pressure 60 mm[Hg] Whitney Stephany HYDRATION PLANT OPERATOR.RADAR ENGINEERING TEACHER Work Phone: [facility] 09-09-2024 12:03-0500 Heart rate 68 /min Whitney Morser HYDRATION PLANT OPERATOR.RADAR ENGINEERING TEACHER Work Phone: [facility] 09-09-2024 12:03-0500 Systolic blood pressure 98 mm[Hg] Whitney Morser HYDRATION PLANT OPERATOR.RADAR ENGINEERING TEACHER Work Phone: [facility] 09-08-2024 14:08-0500 Body mass index (BMI) [Ratio] 29.46 kg/m2 Margaret Wilde APRN.RADAR ENGINEERING TEACHER Work Phone: [facility] 09-08-2024 14:08-0500 Body temperature 98.29 [degF] Margaret Wilde APRN.RADAR ENGINEERING TEACHER Work Phone: [facility] 09-08-2024 14:08-0500 Body weight 82.8 kg Margaret Wilde APRN.RADAR ENGINEERING TEACHER Work Phone: [facility] 09-08-2024 14:08-0500 Diastolic blood pressure 70 mm[Hg] Margaret Wilde APRN.RADAR ENGINEERING TEACHER Work Phone: [facility] 09-08-2024 14:08-0500 Heart rate 71 /min Margaret Wilde APRN.RADAR ENGINEERING TEACHER Work Phone: [facility] 09-08-2024 14:08-0500 Respiratory rate 18 /min Margaret Wilde APRN.RADAR ENGINEERING TEACHER Work Phone: [facility] 09-08-2024 14:08-0500 SaO2% (BldA) [Mass fraction] 97 % Margaret Wilde APRN.RADAR ENGINEERING TEACHER Work Phone: [facility] 09-08-2024 14:08-0500 Systolic blood pressure 116 mm[Hg] Margaret Wilde APRN.RADAR ENGINEERING TEACHER Work Phone: [facility] 08-25-2024 20:49-0400 Body mass index (BMI) [Ratio] 29.2 kg/m2 Dr. Joon Lopez MD Work Phone: [facility] 08-17-2024 11:34-0400 Body mass index (BMI) [Ratio] 28.86 kg/m2 Sandra Clutter PA-C Work Phone: [facility] 08-17-2024 11:34-0400 Body weight 81.1 kg Sandra Clutter PA-C Work Phone: [facility] 08-17-2024 11:34-0400 Diastolic blood pressure 60 mm[Hg] Sandra Clutter PA-C Work Phone: [facility] 08-17-2024 11:34-0400 Heart rate 75 /min Sandra Clutter PA-C Work Phone: [facility] 08-17-2024 11:34-0400 Respiratory rate 20 /min Sandra Clutter PA-C Work Phone: [facility] 08-17-2024 11:34-0400 SaO2% (BldA) [Mass fraction] 98 % Sandra Clutter PA-C Work Phone: [facility] 08-17-2024 11:34-0400 Systolic blood pressure 100 mm[Hg] Sandra Clutter PA-C Work Phone: [facility] 08-03-2024 07:52-0400 Body mass index (BMI) [Ratio] 29.7 kg/m2 Xochitl Castrejon MD Work Phone: [facility] 08-03-2024 07:52-0400 Body weight 83.46 kg Xochitl Castrejon MD Work Phone: [facility] 08-03-2024 07:52-0400 Diastolic blood pressure 62 mm[Hg] Xochitl Castrejon MD Work Phone: [facility] 08-03-2024 07:52-0400 Heart rate 84 /min Xochitl Castrejon MD Work Phone: [facility] 08-03-2024 07:52-0400 Respiratory rate 16 /min Xochitl Castrejon MD Work Phone: [facility] 08-03-2024 07:52-0400 Systolic blood pressure 100 mm[Hg] Xochitl Castrejon MD Work Phone: [facility] 06-22-2024 09:48-0400 Body height 167.6 cm Joon Lopez MD Work Phone: [facility] 06-22-2024 09:48-0400 Body mass index (BMI) [Ratio] 30.35 kg/m2 Joon Lopez MD Work Phone: [facility] 06-22-2024 09:48-0400 Body temperature 97.11 [degF] Joon Lopez MD Work Phone: [facility] 06-22-2024 09:48-0400 Body weight 85.3 kg Joon Lopez MD Work Phone: [facility] 06-22-2024 09:48-0400 Diastolic blood pressure 56 mm[Hg] Joon Lopez MD Work Phone: [facility] 06-22-2024 09:48-0400 Heart rate 86 /min Joon Lopez MD Work Phone: [facility] 06-22-2024 09:48-0400 Respiratory rate 16 /min Joon Lopez MD Work Phone: [facility] 06-22-2024 09:48-0400 SaO2% (BldA) [Mass fraction] 91 % Joon Lopez MD Work Phone: [facility] 06-22-2024 09:48-0400 Systolic blood pressure 110 mm[Hg] Joon Lopez MD Work Phone: [facility] 06-01-2024 17:02-0400 Body mass index (BMI) [Ratio] 30.78 kg/m2 Clarisse Joyce HYDRATION PLANT OPERATOR.RADAR ENGINEERING TEACHER Work Phone: [facility] 06-01-2024 17:02-0400 Body temperature 97.81 [degF] Clarisse Joyce HYDRATION PLANT OPERATOR.RADAR ENGINEERING TEACHER Work Phone: [facility] 06-01-2024 17:02-0400 Body weight 86.5 kg Clarisse Joyce HYDRATION PLANT OPERATOR.RADAR ENGINEERING TEACHER Work Phone: [facility] 06-01-2024 17:02-0400 Diastolic blood pressure 76 mm[Hg] Clarisse Joyce HYDRATION PLANT OPERATOR.RADAR ENGINEERING TEACHER Work Phone: [facility] 06-01-2024 17:02-0400 Heart rate 86 /min Clarisse Joyce HYDRATION PLANT OPERATOR.RADAR ENGINEERING TEACHER Work Phone: [facility] 06-01-2024 17:02-0400 Respiratory rate 21 /min Clarisse Joyce HYDRATION PLANT OPERATOR.RADAR ENGINEERING TEACHER Work Phone: [facility] 06-01-2024 17:02-0400 SaO2% (BldA) [Mass fraction] 98 % Clarisse Joyce HYDRATION PLANT OPERATOR.RADAR ENGINEERING TEACHER Work Phone: [facility] 06-01-2024 17:02-0400 Systolic blood pressure 150 mm[Hg] Clarisse Joyce HYDRATION PLANT OPERATOR.RADAR ENGINEERING TEACHER Work Phone: [facility] 05-11-2024 14:40-0400 Body mass index (BMI) [Ratio] 31.89 kg/m2 Joon Lopez MD Work Phone: [facility] 05-11-2024 14:40-0400 Body weight 89.63 kg Joon Lopez MD Work Phone: [facility] 05-11-2024 14:40-0400 Diastolic blood pressure 72 mm[Hg] Joon Lopez MD Work Phone: [facility] 05-11-2024 14:40-0400 Heart rate 76 /min Joon Lopez MD Work Phone: [facility] 05-11-2024 14:40-0400 Respiratory rate 18 /min Joon Lopez MD Work Phone: [facility] 05-11-2024 14:40-0400 Systolic blood pressure 138 mm[Hg] Joon Lopez MD Work Phone: [facility] 03-22-2024 08:43-0400 Diastolic blood pressure 72 mm[Hg] Whitney Stephany HYDRATION PLANT OPERATOR.RADAR ENGINEERING TEACHER Work Phone: [facility] 03-22-2024 08:43-0400 Systolic blood pressure 138 mm[Hg] Whitney Stephany HYDRATION PLANT OPERATOR.RADAR ENGINEERING TEACHER Work Phone: [facility] 03-22-2024 08:41-0400 Body mass index (BMI) [Ratio] 31.31 kg/m2 Whitney Stephany HYDRATION PLANT OPERATOR.RADAR ENGINEERING TEACHER Work Phone: [facility] 03-22-2024 08:41-0400 Body weight 88 kg Whitney Stephany HYDRATION PLANT OPERATOR.RADAR ENGINEERING TEACHER Work Phone: [facility] 03-22-2024 08:41-0400 Heart rate 90 /min Whitney Stephany HYDRATION PLANT OPERATOR.RADAR ENGINEERING TEACHER Work Phone: [facility] 03-22-2024 08:41-0400 SaO2% (BldA) [Mass fraction] 96 % Whitney Stephany HYDRATION PLANT OPERATOR.RADAR ENGINEERING TEACHER Work Phone: [facility] 02-03-2024 10:27-0400 Body mass index (BMI) [Ratio] 30.67 kg/m2 Joon Lopez MD Work Phone: [facility] 02-03-2024 10:27-0400 Body weight 86.18 kg Joon Lopez MD Work Phone: [facility] 02-03-2024 10:27-0400 Diastolic blood pressure 72 mm[Hg] Joon Lopez MD Work Phone: [facility] 02-03-2024 10:27-0400 Heart rate 84 /min Joon Lopez MD Work Phone: [facility] 02-03-2024 10:27-0400 Respiratory rate 16 /min Joon Lopez MD Work Phone: [facility] 02-03-2024 10:27-0400 Systolic blood pressure 124 mm[Hg] Joon Lopez MD Work Phone: [facility] 01-30-2024 15:02-0400 Body temperature 98.7 [degF] Dr. Joon Lopez Work Phone: [facility] 01-30-2024 15:02-0400 Diastolic blood pressure 74 mm[Hg] Dr. Joon Lopez Work Phone: [facility] 01-30-2024 15:02-0400 Heart rate 66 /min Dr. Joon Lopez Work Phone: [facility] 01-30-2024 15:02-0400 Respiratory rate 16 /min Dr. Joon Lopez Work Phone: [facility] 01-30-2024 15:02-0400 SaO2% (BldA) [Mass fraction] 100 % Dr. Joon Lopez Work Phone: [facility] 01-30-2024 15:02-0400 Systolic blood pressure 134 mm[Hg] Dr. Joon Lopez Work Phone: [facility] 01-30-2024 09:38-0400 Body height 172.[address] Joon Lopez Work Phone: [facility] 01-30-2024 09:38-0400 Body weight 87.[address] Joon Lopez Work Phone: [facility] 01-30-2024 09:02-0400 Inhaled oxygen flow rate 100 L/min Dr. Joon Lopez Work Phone: [facility] 01-29-2024 17:33-0400 Body mass index (BMI) [Ratio] 29.4 kg/m2 Dr. Joon Lopez Work Phone: [facility] 01-29-2024 17:00-0400 Diastolic blood pressure 74 mm[Hg] Dr. Joon Lopez Work Phone: 7(558)032-878000 [place] [address] 01-29-2024 17:00-0400 Heart rate 61 /min Dr. Joon Lopez Work Phone: 3(254)422-900400 [place] [address] 01-29-2024 17:00-0400 Respiratory rate 16 /min Dr. Joon Lopez Work Phone: 5(843)004-745849 [place] [address] 01-29-2024 17:00-0400 SaO2% (BldA) [Mass fraction] 96 % Dr. Joon Lopez Work Phone: 6(603)126-466200 [place] [address] 01-29-2024 17:00-0400 Systolic blood pressure 146 mm[Hg] Dr. Joon Lopez Work Phone: 6(561)131-507700 [place] [address] 01-29-2024 16:53-0400 Body temperature 98 [degF] Dr. Joon Lopez Work Phone: 7(854)013-009700 [place] [address] 01-29-2024 13:35-0400 Body height 172.[address] Joon Lopez Work Phone: 2(668)364-902600 [place] [address] 01-29-2024 13:35-0400 Body mass index (BMI) [Ratio] 30.9 kg/m2 Dr. Joon Lopez Work Phone: 2(858)628-321900 [place] [address] 01-29-2024 13:35-0400 Body weight 92.[address] Joon Lopez Work Phone: [facility] 01-28-2024 23:52-0400 Blood Pressure Cuff Size RUBIO ELISACOURTNEYA DO [facility] 01-28-2024 23:52-0400 Blood Pressure Location NIDMIRELLA PÉREZCOURTNEYA DO [facility] 01-28-2024 23:52-0400 Blood Pressure Method NIDAL CHOUJAA DO [facility] 01-28-2024 23:52-0400 Diastolic Blood Pressure Non-Invasive 75 mm[Hg] NIDAL CHOUJAA DO [facility] 01-28-2024 23:52-0400 Heart rate 65 /min NIDAL CHOUJAA DO [facility] 01-28-2024 23:52-0400 Respiratory rate 18 /min NIDAL CHOUJAA DO [facility] 01-28-2024 23:52-0400 Systolic Blood Pressure Non-Invasive 155 mm[Hg] NIDAL CHOUJAA DO [facility] 01-28-2024 23:00-0400 Systolic Blood Pressure Non-Invasive 157 mm[Hg] NIDAL CHOUJAA DO [facility] 01-28-2024 22:06-0400 Diastolic Blood Pressure Non-Invasive 84 mm[Hg] NIDAL CHOUJAA DO [facility] 01-28-2024 22:06-0400 Heart rate 84 /min NIDAL CHOUJAA DO [facility] 01-28-2024 22:06-0400 Respiratory rate 18 /min NIDAL CHOUJAA DO [facility] 01-28-2024 22:06-0400 Systolic Blood Pressure Non-Invasive 177 mm[Hg] NIDAL CHOUJAA DO [facility] 01-28-2024 20:26-0400 Blood Pressure Cuff Size NIDAL CHOUJAA DO [facility] 01-28-2024 20:26-0400 Blood Pressure Location NIDAL CHOUJAA DO [facility] 01-28-2024 20:26-0400 Blood Pressure Method NIDAL CHOUJAA DO [facility] 01-28-2024 20:25-0400 Blood Pressure Cuff Size NIDAL CHOUJAA DO [facility] 01-28-2024 20:25-0400 Blood Pressure Location NIDAL CHOUJAA DO [facility] 01-28-2024 20:25-0400 Blood Pressure Method NIDAL CHOUJAA DO [facility] 01-28-2024 20:25-0400 Body temperature 98.06 [degF] NIDAL CHOUJAA DO [facility] 01-28-2024 20:25-0400 Heart rate 83 /min NIDAL CHOUJAA DO [facility] 01-22-2024 09:00-0400 Body temperature 98.1 [degF] Dr. Joon Lopez Work Phone: [facility] 01-22-2024 09:00-0400 Diastolic blood pressure 76 mm[Hg] Dr. Joon Lopez Work Phone: [facility] 01-22-2024 09:00-0400 Heart rate 60 /min Dr. Joon Lopez Work Phone: [facility] 01-22-2024 09:00-0400 Respiratory rate 18 /min Dr. Joon Lopez Work Phone: [facility] 01-22-2024 09:00-0400 SaO2% (BldA) [Mass fraction] 98 % Dr. Joon Lopez Work Phone: 2(594)443-449449 [place] [address] 01-22-2024 09:00-0400 Systolic blood pressure 131 mm[Hg] Dr. Joon Lopez Work Phone: 5(555)943-993549 [place] [address] 01-22-2024 06:48-0400 Body height 172.[address] Joon Lopez Work Phone: 8(077)669-736449 [place] [address] 01-22-2024 06:48-0400 Body mass index (BMI) [Ratio] 29.2 kg/m2 Dr. Joon Lopez Work Phone: 6(560)366-140249 [place] [address] 01-22-2024 06:48-0400 Body weight 87.[address] Joon Lopez Work Phone: 8(028)721-003149 [place] [address] 01-06-2024 08:34-0400 Body mass index (BMI) [Ratio] 29.6 kg/m2 Dr. Joon Lopez Work Phone: 0(842)724-932649 [place] [address] 01-06-2024 08:34-0400 Body weight 88.[address] Joon Lopez Work Phone: 1(466)077-738849 [place] [address] 01-06-2024 08:34-0400 Diastolic blood pressure 80 mm[Hg] Dr. Joon Lopez Work Phone: 7(956)481-176349 [place] [address] 01-06-2024 08:34-0400 Heart rate 86 /min Dr. Joon Lopez Work Phone: 8(909)047-164549 [place] [address] 01-06-2024 08:34-0400 Respiratory rate 20 /min Dr. Joon Lopez Work Phone: 5(646)818-440849 [place] [address] 01-06-2024 08:34-0400 SaO2% (BldA) [Mass fraction] 93 % Dr. Joon Lopez Work Phone: 8(504)391-410649 [place] [address] 01-06-2024 08:34-0400 Systolic blood pressure 137 mm[Hg] Dr. Joon Lopez Work Phone: 1(222)816-890549 [place] [address] 01-05-2024 14:45-0400 Body mass index (BMI) [Ratio] 31.31 kg/m2 Joon Lopez MD Work Phone: [facility] 01-05-2024 14:45-0400 Body temperature 98.49 [degF] Joon Lopez MD Work Phone: [facility] 01-05-2024 14:45-0400 Body weight 88 kg Joon Lopez MD Work Phone: [facility] 01-05-2024 14:45-0400 Diastolic blood pressure 68 mm[Hg] Joon Lopez MD Work Phone: [facility] 01-05-2024 14:45-0400 Heart rate 60 /min Joon Lopez MD Work Phone: [facility] 01-05-2024 14:45-0400 Systolic blood pressure 120 mm[Hg] Joon Lopez MD Work Phone: [facility] 01-01-2024 13:03-0500 Body mass index (BMI) [Ratio] 29.7 kg/m2 Dr. Joon Lopez Work Phone: [facility] 01-01-2024 13:03-0500 Body weight 88.[address] Joon Lopez Work Phone: [facility] 12-31-2023 13:14-0500 Body temperature 98.4 [degF] Dr. Joon Lopez Work Phone: [facility] 12-31-2023 13:14-0500 Diastolic blood pressure 72 mm[Hg] Dr. Joon Lopez Work Phone: [facility] 12-31-2023 13:14-0500 Heart rate 62 /min Dr. Joon Lopez Work Phone: [facility] 12-31-2023 13:14-0500 Respiratory rate 12 /min Dr. Joon Lopez Work Phone: [facility] 12-31-2023 13:14-0500 SaO2% (BldA) [Mass fraction] 97 % Dr. Joon Lopez Work Phone: 1(589)745-325700 [place] [address] 12-31-2023 13:14-0500 Systolic blood pressure 128 mm[Hg] Dr. Joon Lopez Work Phone: 9(953)778-825449 [place] [address] 12-31-2023 10:40-0500 Body temperature 98.1 [degF] Dr. Joon Lopez Work Phone: 5(968)346-169749 [place] [address] 12-31-2023 10:40-0500 Diastolic blood pressure 83 mm[Hg] Dr. Joon Lopez Work Phone: 5(384)253-931149 [place] [address] 12-31-2023 10:40-0500 Heart rate 66 /min Dr. Joon Lopez Work Phone: 4(661)103-504149 [place] [address] 12-31-2023 10:40-0500 Respiratory rate 14 /min Dr. Joon Lopez Work Phone: 6(864)831-505449 [place] [address] 12-31-2023 10:40-0500 SaO2% (BldA) [Mass fraction] 96 % Dr. Joon Lopez Work Phone: 7(405)135-953149 [place] [address] 12-31-2023 10:40-0500 Systolic blood pressure 132 mm[Hg] Dr. Joon Lopez Work Phone: 8(950)664-969849 [place] [address] 12-31-2023 03:36-0500 Body mass index (BMI) [Ratio] 29.2 kg/m2 Dr. Joon Lopez Work Phone: 0(049)704-432300 [place] [address] 12-31-2023 03:36-0500 Body weight 87.[address] Joon Lopez Work Phone: 0(573)237-787649 [place] [address] 12-30-2023 15:52-0500 Body height 172.[address] Joon Lopez Work Phone: 1(823)967-545349 [place] [address] 12-30-2023 10:44-0500 Inhaled oxygen flow rate 2 L/min Dr. Joon Lopez Work Phone: 4(573)090-040849 [place] [address] 12-02-2023 12:43-0500 Body height 172.[address] Joon Lopez Work Phone: 5(760)743-219500 [place] [address] 12-02-2023 12:43-0500 Body weight 85.[address] Joon Lopez Work Phone: 3(040)273-331749 [place] [address] 12-02-2023 12:43-0500 Heart rate 91 /min Dr. Joon Loepz Work Phone: 9(847)898-380649 [place] [address] 12-02-2023 12:43-0500 SaO2% (BldA) [Mass fraction] 99 % Dr. Joon Lopez Work Phone: 0(513)303-188949 [place] [address] 11-28-2023 23:41-0500 Diastolic blood pressure 66 mm[Hg] Dr. Joon Lopez Work Phone: 4(158)666-328049 [place] [address] 11-28-2023 23:41-0500 Heart rate 64 /min Dr. Joon Lopez Work Phone: 2(324)694-295749 [place] [address] 11-28-2023 23:41-0500 Respiratory rate 15 /min Dr. Joon Lopez Work Phone: 1(388)413-491449 [place] [address] 11-28-2023 23:41-0500 SaO2% (BldA) [Mass fraction] 99 % Dr. Joon Lopez Work Phone: 0(286)552-333249 [place] [address] 11-28-2023 23:41-0500 Systolic blood pressure 136 mm[Hg] Dr. Joon Lopez Work Phone: 5(559)742-137749 [place] [address] 11-28-2023 22:45-0500 Body height 172.[address] Joon Lopez Work Phone: 9(037)252-583049 [place] [address] 11-28-2023 22:45-0500 Body mass index (BMI) [Ratio] 30.1 kg/m2 Dr. Joon Lopez Work Phone: 8(353)803-679949 [place] [address] 11-28-2023 22:45-0500 Body temperature 98.6 [degF] Dr. Joon Lopez Work Phone: 8(457)585-298549 [place] [address] 11-28-2023 22:45-0500 Body weight 89.[address] Joon Lopez Work Phone: 1(023)228-789300 [place] [address] 11-26-2023 06:33-0500 Body mass index (BMI) [Ratio] 28.6 kg/m2 Dr. Joon Lopez Work Phone: 8(516)828-706649 [place] [address] 11-26-2023 06:33-0500 Body temperature 97.3 [degF] Dr. Joon Lopez Work Phone: 8(471)774-754349 [place] [address] 11-26-2023 06:33-0500 Body weight 85.[address] Joon Lopez Work Phone: 3(193)212-571549 [place] [address] 11-26-2023 06:33-0500 Diastolic blood pressure 78 mm[Hg] Dr. Joon Lopez Work Phone: 1(649)686-321849 [place] [address] 11-26-2023 06:33-0500 Heart rate 90 /min Dr. Joon Lopez Work Phone: 0(974)400-978849 [place] [address] 11-26-2023 06:33-0500 Respiratory rate 20 /min Dr. Joon Lopez Work Phone: 6(464)020-654149 [place] [address] 11-26-2023 06:33-0500 SaO2% (BldA) [Mass fraction] 98 % Dr. Joon Lopez Work Phone: 1(218)926-886349 [place] [address] 11-26-2023 06:33-0500 Systolic blood pressure 137 mm[Hg] Dr. Joon Lopez Work Phone: 0(363)990-845049 [place] [address] 11-09-2023 14:56-0500 Body mass index (BMI) [Ratio] 30 kg/m2 Dr. Joon Lopez Work Phone: 9(612)836-234449 [place] [address] 11-09-2023 14:56-0500 Body weight 89.[address] Joon Lopez Work Phone: 5(265)007-671449 [place] [address] 11-09-2023 12:48-0500 Body height 172.[address] Joon Lopez Work Phone: 3(955)406-906449 [place] [address] 11-09-2023 12:48-0500 Body temperature 97.2 [degF] Dr. Joon Lopez Work Phone: 3(868)548-234449 [place] [address] 11-09-2023 12:48-0500 Diastolic blood pressure 89 mm[Hg] Dr. Joon Lopez Work Phone: 3(289)269-539349 [place] [address] 11-09-2023 12:48-0500 Heart rate 84 /min Dr. Joon Lopez Work Phone: 4(692)318-470249 [place] [address] 11-09-2023 12:48-0500 Respiratory rate 16 /min Dr. Joon Lopez Work Phone: 3(517)235-484449 [place] [address] 11-09-2023 12:48-0500 SaO2% (BldA) [Mass fraction] 97 % Dr. Joon Lopez Work Phone: 7(182)910-045349 [place] [address] 11-09-2023 12:48-0500 Systolic blood pressure 151 mm[Hg] Dr. Joon Lopez Work Phone: 8(046)534-299249 [place] [address] 10-02-2023 01:20-0500 Diastolic blood pressure 84 mm[Hg] Dr. Joon Lopez Work Phone: 0(357)800-142849 [place] [address] 10-02-2023 01:20-0500 Systolic blood pressure 108 mm[Hg] Dr. Joon Lopez Work Phone: 5(598)841-757749 [place] [address] 10-02-2023 00:27-0500 Heart rate 62 /min Dr. Joon Lopez Work Phone: 8(335)850-400549 [place] [address] 10-01-2023 23:29-0500 Body height 172.[address] Joon Lopez Work Phone: 4(648)921-281049 [place] [address] 10-01-2023 23:29-0500 Body mass index (BMI) [Ratio] 30.9 kg/m2 Dr. Jono Lopez Work Phone: 4(978)582-981949 [place] [address] 10-01-2023 23:29-0500 Body temperature 98 [degF] Dr. Joon Lopez Work Phone: 5(696)917-535849 [place] [address] 10-01-2023 23:29-0500 Body weight 92.[address] Joon Lopez Work Phone: [facility] 10-01-2023 23:29-0500 Respiratory rate 18 /min Dr. Joon Lopez Work Phone: [facility] 10-01-2023 23:29-0500 SaO2% (BldA) [Mass fraction] 97 % Dr. Joon Lopez Work Phone: [facility] 09-23-2023 09:05-0500 Body weight 89.81 kg Whitney Stephany HYDRATION PLANT OPERATOR.RADAR ENGINEERING TEACHER Work Phone: 4(106)206-088186 [place] [address] 09-23-2023 09:05-0500 Diastolic blood pressure 70 mm[Hg] Whitney Stephany HYDRATION PLANT OPERATOR.RADAR ENGINEERING TEACHER Work Phone: 3(108)847-358986 [place] [address] 09-23-2023 09:05-0500 Heart rate 83 /min Whitney Stephany HYDRATION PLANT OPERATOR.RADAR ENGINEERING TEACHER Work Phone: 7(302)850-485086 [place] [address] 09-23-2023 09:05-0500 SaO2% (BldA) [Mass fraction] 97 % Whitney Stephany HYDRATION PLANT OPERATOR.RADAR ENGINEERING TEACHER Work Phone: 8(831)949-232086 [place] [address] 09-23-2023 09:05-0500 Systolic blood pressure 128 mm[Hg] Whitney Stephany HYDRATION PLANT OPERATOR.RADAR ENGINEERING TEACHER Work Phone: 9(452)800-433186 [place] [address] 09-03-2023 08:05-0500 Body mass index (BMI) [Ratio] 29.5 kg/m2 Dr. Joon Lopez Work Phone: [facility] 09-03-2023 08:05-0500 Body temperature 97 [degF] Dr. Joon Lopez Work Phone: 4(859)822-888800 [place] [address] 09-03-2023 08:05-0500 Diastolic blood pressure 87 mm[Hg] Dr. Joon Lopez Work Phone: 7(518)924-603900 [place] [address] 09-03-2023 08:05-0500 Heart rate 91 /min Dr. Joon Lopez Work Phone: 1(415)089-884600 [place] [address] 09-03-2023 08:05-0500 SaO2% (BldA) [Mass fraction] 97 % Dr. Joon Lopez Work Phone: 9(209)023-726400 [place] [address] 09-03-2023 08:05-0500 Systolic blood pressure 176 mm[Hg] Dr. Joon Lopez Work Phone: 4(801)937-650649 [place] [address] 09-01-2023 17:52-0500 Diastolic blood pressure 83 mm[Hg] Dr. Joon Lopez Work Phone: 4(111)988-140249 [place] [address] 09-01-2023 17:52-0500 Heart rate 70 /min Dr. Joon Lopez Work Phone: 0(990)621-196649 [place] [address] 09-01-2023 17:52-0500 Respiratory rate 16 /min Dr. Joon Lopez Work Phone: 9(350)563-310949 [place] [address] 09-01-2023 17:52-0500 Systolic blood pressure 150 mm[Hg] Dr. Joon Lopez Work Phone: 5(429)229-856949 [place] [address] 09-01-2023 15:01-0500 Body height 172.[address] Joon Lopez Work Phone: 3(971)392-391149 [place] [address] 09-01-2023 15:01-0500 Body temperature 97.4 [degF] Dr. Joon Lopez Work Phone: 7(245)296-937049 [place] [address] 09-01-2023 15:01-0500 SaO2% (BldA) [Mass fraction] 99 % Dr. Joon Lopez Work Phone: 0(002)270-461300 [place] [address] 08-26-2023 00:48-0400 Body weight 87.[address] Joon Lopez Work Phone: 3(194)405-325649 [place] [address] 08-26-2023 00:48-0400 Respiratory rate 18 /min Dr. Joon Lopez Work Phone: 0(353)829-064149 [place] [address] 08-13-2023 08:15-0400 Body mass index (BMI) [Ratio] 29.5 kg/m2 Dr. Joon Lopez Work Phone: 6(311)978-854449 [place] [address] 08-13-2023 08:15-0400 Body temperature 97.6 [degF] Dr. Joon Lopez Work Phone: 2(357)558-060849 [place] [address] 08-13-2023 08:15-0400 Diastolic blood pressure 99 mm[Hg] Dr. Joon Lopez Work Phone: 4(096)954-822249 [place] [address] 08-13-2023 08:15-0400 Heart rate 95 /min Dr. Joon Lopez Work Phone: 9(486)653-468549 [place] [address] 08-13-2023 08:15-0400 Respiratory rate 18 /min Dr. Joon Lopez Work Phone: 0(189)809-115649 [place] [address] 08-13-2023 08:15-0400 Systolic blood pressure 160 mm[Hg] Dr. Joon Lopez Work Phone: 0(415)944-544649 [place] [address] 07-26-2023 02:45-0400 Body mass index (BMI) [Ratio] 29.2 kg/m2 Dr. Joon Lopez Work Phone: 0(036)744-482749 [place] [address] 07-26-2023 00:40-0400 Body weight 87.[address] Joon Lopez Work Phone: 3(889)001-173749 [place] [address] 07-23-2023 08:09-0400 Body mass index (BMI) [Ratio] 29.5 kg/m2 Dr. Joon Lopez Work Phone: 7(793)859-693249 [place] [address] 07-23-2023 08:09-0400 Body temperature 95.5 [degF] Dr. Joon Lopez Work Phone: 1(705)189-293949 [place] [address] 07-23-2023 08:09-0400 Diastolic blood pressure 74 mm[Hg] Dr. Joon Lopez Work Phone: 7(023)298-206549 [place] [address] 07-23-2023 08:09-0400 Heart rate 88 /min Dr. Joon Lopez Work Phone: 5(361)513-031149 [place] [address] 07-23-2023 08:09-0400 Respiratory rate 20 /min Dr. Joon Lopez Work Phone: 6(826)499-142249 [place] [address] 07-23-2023 08:09-0400 Systolic blood pressure 138 mm[Hg] Dr. Joon Lopez Work Phone: 7(942)095-943449 [place] [address] 07-10-2023 11:27-0400 Body height 172.[address] Joon Lopez Work Phone: 7(128)826-054449 [place] [address] 07-10-2023 11:27-0400 Body mass index (BMI) [Ratio] 29.6 kg/m2 Dr. Joon Lopez Work Phone: 1(659)606-809249 [place] [address] 07-10-2023 11:27-0400 Body weight 88.[address] Joon Lopez Work Phone: 1(008)823-210049 [place] [address] 07-10-2023 11:27-0400 Diastolic blood pressure 79 mm[Hg] Dr. Joon Lopez Work Phone: 8(404)531-585249 [place] [address] 07-10-2023 11:27-0400 Heart rate 82 /min Dr. Joon Lopez Work Phone: 1(617)333-582949 [place] [address] 07-10-2023 11:27-0400 Respiratory rate 16 /min Dr. Joon Lopez Work Phone: 3(466)431-545349 [place] [address] 07-10-2023 11:27-0400 Systolic blood pressure 124 mm[Hg] Dr. Joon Lopez Work Phone: 5(737)996-777649 [place] [address] 06-26-2023 00:26-0400 Body weight 87.[address] Joon Lopez Work Phone: 9(023)411-525049 [place] [address] 06-25-2023 22:54-0400 Body mass index (BMI) [Ratio] 29.2 kg/m2 Dr. Joon Lopez Work Phone: 7(208)375-013049 [place] [address] 06-25-2023 08:04-0400 Body mass index (BMI) [Ratio] 29.5 kg/m2 Dr. Joon Lopez Work Phone: 9(805)270-789549 [place] [address] 06-25-2023 08:04-0400 Body temperature 97.4 [degF] Dr. Joon Lopez Work Phone: 5(253)680-313700 [place] [address] 06-25-2023 08:04-0400 Diastolic blood pressure 94 mm[Hg] Dr. Joon Lopez Work Phone: [facility] 06-25-2023 08:04-0400 Heart rate 90 /min Dr. Joon Lopez Work Phone: 7(706)241-232849 [place] [address] 06-25-2023 08:04-0400 Respiratory rate 20 /min Dr. Joon Lopez Work Phone: 2(646)400-511549 [place] [address] 06-25-2023 08:04-0400 Systolic blood pressure 147 mm[Hg] Dr. Joon Lopez Work Phone: 4(444)185-124249 [place] [address] 06-12-2023 08:53-0400 Body height 172.[address] Joon Lopez Work Phone: 3(401)085-429349 [place] [address] 06-12-2023 08:53-0400 Body mass index (BMI) [Ratio] 29.3 kg/m2 Dr. Joon Lopez Work Phone: 2(783)593-288249 [place] [address] 06-12-2023 08:53-0400 Body temperature 97.6 [degF] Dr. Joon Lopez Work Phone: 6(225)757-468149 [place] [address] 06-12-2023 08:53-0400 Body weight 87.[address] Joon Lopez Work Phone: 9(558)944-398449 [place] [address] 06-12-2023 08:53-0400 Diastolic blood pressure 90 mm[Hg] Dr. Joon Lopez Work Phone: 3(194)364-024149 [place] [address] 06-12-2023 08:53-0400 Heart rate 83 /min Dr. Joon Lopez Work Phone: 5(355)482-999849 [place] [address] 06-12-2023 08:53-0400 Respiratory rate 18 /min Dr. Joon Lopez Work Phone: 3(620)102-767649 [place] [address] 06-12-2023 08:53-0400 SaO2% (BldA) [Mass fraction] 97 % Dr. Joon Lopez Work Phone: 8(534)597-790500 [place] [address] 06-12-2023 08:53-0400 Systolic blood pressure 131 mm[Hg] Dr. Joon Lopez Work Phone: 8(327)852-789549 [place] [address] 05-28-2023 07:57-0400 Body weight 87.[address] Joon Lopez Work Phone: 8(851)259-684649 [place] [address] 05-21-2023 13:10-0400 Respiratory rate 16 /min Dr. Joon Lopez Work Phone: 1(627)745-062649 [place] [address] 05-21-2023 11:10-0400 Body height 172.[address] Joon Lopez Work Phone: 8(400)311-067049 [place] [address] 05-21-2023 11:10-0400 Body mass index (BMI) [Ratio] 29.5 kg/m2 Dr. Joon Lopez Work Phone: 2(637)175-404149 [place] [address] 05-21-2023 11:10-0400 Body temperature 96.2 [degF] Dr. Joon Lopez Work Phone: 1(342)724-692849 [place] [address] 05-21-2023 11:10-0400 Body weight 87.[address] Joon Lopez Work Phone: 9(786)977-900749 [place] [address] 05-21-2023 11:10-0400 Diastolic blood pressure 97 mm[Hg] Dr. Joon Lopez Work Phone: 6(650)239-326249 [place] [address] 05-21-2023 11:10-0400 Heart rate 87 /min Dr. Joon Lopez Work Phone: 4(314)296-279349 [place] [address] 05-21-2023 11:10-0400 SaO2% (BldA) [Mass fraction] 97 % Dr. Joon Lopez Work Phone: 7(222)835-522849 [place] [address] 05-21-2023 11:10-0400 Systolic blood pressure 136 mm[Hg] Dr. Joon Lopez Work Phone: 0(968)940-054749 [place] [address] 05-12-2023 08:54-0400 Body weight 87.54 kg Whitney Stephany HYDRATION PLANT OPERATOR.RADAR ENGINEERING TEACHER Work Phone: [facility] 05-12-2023 08:54-0400 Diastolic blood pressure 78 mm[Hg] Whitney Stephany HYDRATION PLANT OPERATOR.RADAR ENGINEERING TEACHER Work Phone: [facility] 05-12-2023 08:54-0400 Heart rate 82 /min Whitney Stephany HYDRATION PLANT OPERATOR.RADAR ENGINEERING TEACHER Work Phone: [facility] 05-12-2023 08:54-0400 SaO2% (BldA) [Mass fraction] 98 % Whitney Stephany HYDRATION PLANT OPERATOR.RADAR ENGINEERING TEACHER Work Phone: [facility] 05-12-2023 08:54-0400 Systolic blood pressure 134 mm[Hg] Whitney Stephany HYDRATION PLANT OPERATOR.RADAR ENGINEERING TEACHER Work Phone: [facility] 05-09-2023 09:49-0400 Body height 172.[address] Joon Lopez Work Phone: [facility] 05-09-2023 09:49-0400 Body mass index (BMI) [Ratio] 29.6 kg/m2 Dr. Joon Lopez Work Phone: [facility] 05-09-2023 09:49-0400 Body temperature 97.9 [degF] Dr. Joon Lopez Work Phone: [facility] 05-09-2023 09:49-0400 Body weight 88.[address] Joon Lopez Work Phone: [facility] 05-09-2023 09:49-0400 Diastolic blood pressure 78 mm[Hg] Dr. Joon Lopez Work Phone: [facility] 05-09-2023 09:49-0400 Heart rate 82 /min Dr. Joon Lopez Work Phone: [facility] 05-09-2023 09:49-0400 Respiratory rate 14 /min Dr. Joon Lopez Work Phone: [facility] 05-09-2023 09:49-0400 SaO2% (BldA) [Mass fraction] 99 % Dr. Joon Lopez Work Phone: 5(202)564-350200 [place] [address] 05-09-2023 09:49-0400 Systolic blood pressure 148 mm[Hg] Dr. Joon Lopez Work Phone: 6(450)928-184049 [place] [address] 04-24-2023 22:20-0400 Body mass index (BMI) [Ratio] 29.2 kg/m2 Dr. Joon Lopez Work Phone: 6(563)108-718849 [place] [address] 04-16-2023 10:14-0400 Body height 172.[address] Joon Lopez Work Phone: 3(132)485-534149 [place] [address] 04-16-2023 10:11-0400 Body mass index (BMI) [Ratio] 29.3 kg/m2 Dr. Joon Lopez Work Phone: 2(921)832-859149 [place] [address] 04-16-2023 10:11-0400 Body temperature 98.1 [degF] Dr. Joon Lopez Work Phone: 4(244)450-959049 [place] [address] 04-16-2023 10:11-0400 Body weight 87.[address] Joon Lopez Work Phone: 8(104)919-991349 [place] [address] 04-16-2023 10:11-0400 Diastolic blood pressure 81 mm[Hg] Dr. Joon Lopez Work Phone: 4(416)873-622000 [place] [address] 04-16-2023 10:11-0400 Heart rate 88 /min Dr. Joon Lopez Work Phone: 9(402)139-912800 [place] [address] 04-16-2023 10:11-0400 Respiratory rate 18 /min Dr. Joon Lopez Work Phone: 0(780)041-863200 [place] [address] 04-16-2023 10:11-0400 SaO2% (BldA) [Mass fraction] 96 % Dr. Joon Lopez Work Phone: 3(602)328-750349 [place] [address] 04-16-2023 10:11-0400 Systolic blood pressure 156 mm[Hg] Dr. Joon Loepz Work Phone: [facility] 04-16-2023 07:09-0400 Body weight 88.45 kg Trini Tang HYDRATION PLANT OPERATOR.WILDLAND FIREFIGHTER Work Phone: [facility] 04-16-2023 07:09-0400 Diastolic blood pressure 80 mm[Hg] Trini Tang HYDRATION PLANT OPERATOR.WILDLAND FIREFIGHTER Work Phone: [facility] 04-16-2023 07:09-0400 Heart rate 80 /min Trini Tang HYDRATION PLANT OPERATOR.WILDLAND FIREFIGHTER Work Phone: [facility] 04-16-2023 07:09-0400 Respiratory rate 16 /min Trini Tang HYDRATION PLANT OPERATOR.WILDLAND FIREFIGHTER Work Phone: [facility] 04-16-2023 07:09-0400 SaO2% (BldA) [Mass fraction] 98 % Trini Tang HYDRATION PLANT OPERATOR.WILDLAND FIREFIGHTER Work Phone: [facility] 04-16-2023 07:09-0400 Systolic blood pressure 120 mm[Hg] Trini Tang HYDRATION PLANT OPERATOR.WILDLAND FIREFIGHTER Work Phone: [facility] 04-03-2023 12:28-0400 Body temperature 96.4 [degF] Joon Lopez MD Work Phone: [facility] 04-03-2023 12:28-0400 Body weight 91.63 kg Joon Lopez MD Work Phone: [facility] 04-03-2023 12:28-0400 Diastolic blood pressure 83 mm[Hg] Joon Lopez MD Work Phone: [facility] 04-03-2023 12:28-0400 Heart rate 86 /min Joon Lopez MD Work Phone: [facility] 04-03-2023 12:28-0400 Respiratory rate 18 /min Joon Lopez MD Work Phone: [facility] 04-03-2023 12:28-0400 SaO2% (BldA) [Mass fraction] 96 % Joon Lopez MD Work Phone: [facility] 04-03-2023 12:28-0400 Systolic blood pressure 149 mm[Hg] Joon Lopez MD Work Phone: [facility] 03-31-2023 09:09-0400 Body weight 91.17 kg Whitney Stephany HYDRATION PLANT OPERATOR.RADAR ENGINEERING TEACHER Work Phone: [facility] 03-31-2023 09:09-0400 Diastolic blood pressure 72 mm[Hg] Whitney Morser HYDRATION PLANT OPERATOR.RADAR ENGINEERING TEACHER Work Phone: [facility] 03-31-2023 09:09-0400 Heart rate 81 /min Whitney Morser HYDRATION PLANT OPERATOR.RADAR ENGINEERING TEACHER Work Phone: [facility] 03-31-2023 09:09-0400 SaO2% (BldA) [Mass fraction] 97 % Whitney Morser HYDRATION PLANT OPERATOR.RADAR ENGINEERING TEACHER Work Phone: [facility] 03-31-2023 09:09-0400 Systolic blood pressure 128 mm[Hg] Whitney Morser HYDRATION PLANT OPERATOR.RADAR ENGINEERING TEACHER Work Phone: [facility] 03-18-2023 13:06-0400 Diastolic blood pressure 74 mm[Hg] Dr. Joon Lopez Work Phone: [facility] 03-18-2023 13:06-0400 Heart rate 79 /min Dr. Joon Lopez Work Phone: [facility] 03-18-2023 13:06-0400 Respiratory rate 18 /min Dr. Joon Lopez Work Phone: [facility] 03-18-2023 13:06-0400 SaO2% (BldA) [Mass fraction] 100 % Dr. Joon Lopez Work Phone: [facility] 03-18-2023 13:06-0400 Systolic blood pressure 121 mm[Hg] Dr. Joon Lopez Work Phone: [facility] 03-18-2023 11:02-0400 Body mass index (BMI) [Ratio] 31.6 kg/m2 Dr. Joon Lopez Work Phone: [facility] 03-18-2023 11:02-0400 Body temperature 98.4 [degF] Dr. Joon Lopez Work Phone: [facility] 03-18-2023 11:02-0400 Body weight 94.[address] Joon Lopez Work Phone: [facility] 03-17-2023 23:59-0400 Diastolic blood pressure 68 mm[Hg] Dr. Joon Lopez Work Phone: [facility] 03-17-2023 23:59-0400 Heart rate 78 /min Dr. Joon Lopez Work Phone: [facility] 03-17-2023 23:59-0400 Respiratory rate 18 /min Dr. Joon Lopez Work Phone: [facility] 03-17-2023 23:59-0400 SaO2% (BldA) [Mass fraction] 97 % Dr. Joon Lopez Work Phone: [facility] 03-17-2023 23:59-0400 Systolic blood pressure 145 mm[Hg] Dr. Joon Lopez Work Phone: [facility] 03-17-2023 19:52-0400 Body mass index (BMI) [Ratio] 31.6 kg/m2 Dr. Joon Lopez Work Phone: [facility] 03-17-2023 19:52-0400 Body weight 91.[address] Joon Lopez Work Phone: [facility] 03-17-2023 18:47-0400 Body temperature 97.2 [degF] Dr. Joon Lopez Work Phone: [facility] 12-26-2022 11:33-0500 Body temperature 96.91 [degF] Joon Lopez MD Work Phone: [facility] 12-26-2022 11:33-0500 Body weight 90.27 kg Joon Lopez MD Work Phone: [facility] 12-26-2022 11:33-0500 Diastolic blood pressure 78 mm[Hg] Joon Lopez MD Work Phone: [facility] 12-26-2022 11:33-0500 Heart rate 91 /min Joon Lopez MD Work Phone: [facility] 12-26-2022 11:33-0500 Respiratory rate 18 /min Joon Lopez MD Work Phone: [facility] 12-26-2022 11:33-0500 SaO2% (BldA) [Mass fraction] 97 % Joon Lopez MD Work Phone: [facility] 12-26-2022 11:33-0500 Systolic blood pressure 124 mm[Hg] Joon Lopez MD Work Phone: [facility] 12-23-2022 23:01-0500 Body mass index (BMI) [Ratio] 29.2 kg/m2 Dr. Joon Lopez Work Phone: [facility] 12-04-2022 10:57-0500 Body temperature 98.4 [degF] Daron Singh MD Work Phone: [facility] 12-04-2022 10:57-0500 Body weight 92.81 kg Daron Singh MD Work Phone: [facility] 12-04-2022 10:57-0500 Diastolic blood pressure 78 mm[Hg] Daron Singh MD Work Phone: [facility] 12-04-2022 10:57-0500 Heart rate 90 /min Daron Singh MD Work Phone: [facility] 12-04-2022 10:57-0500 Respiratory rate 18 /min Daron Singh MD Work Phone: [facility] 12-04-2022 10:57-0500 SaO2% (BldA) [Mass fraction] 97 % Daron Singh MD Work Phone: [facility] 12-04-2022 10:57-0500 Systolic blood pressure 142 mm[Hg] Daron Singh MD Work Phone: [facility] 10-26-2022 03:54-0500 Body mass index (BMI) [Ratio] 29.2 kg/m2 Dr. Joon Lopez Work Phone: [facility] 10-14-2022 13:57-0500 Body height 167.[address] Joon Lopez Work Phone: 8(128)065-193449 [place] [address] 10-14-2022 13:48-0500 Body mass index (BMI) [Ratio] 31.6 kg/m2 Dr. Joon Lopez Work Phone: 1(770)109-552449 [place] [address] 10-14-2022 13:48-0500 Body temperature 97.5 [degF] Dr. Joon Lopez Work Phone: 5(512)424-664249 [place] [address] 10-14-2022 13:48-0500 Body weight 88.[address] Joon Lopez Work Phone: 3(825)061-451749 [place] [address] 10-14-2022 13:48-0500 Diastolic blood pressure 94 mm[Hg] Dr. Joon Lopez Work Phone: 4(130)493-207249 [place] [address] 10-14-2022 13:48-0500 Heart rate 88 /min Dr. Joon Lopez Work Phone: 7(899)467-567249 [place] [address] 10-14-2022 13:48-0500 Respiratory rate 18 /min Dr. Joon Lopez Work Phone: 2(940)461-838749 [place] [address] 10-14-2022 13:48-0500 SaO2% (BldA) [Mass fraction] 97 % Dr. Joon Lopez Work Phone: 9(515)734-668349 [place] [address] 10-14-2022 13:48-0500 Systolic blood pressure 152 mm[Hg] Dr. Joon Lopez Work Phone: 6(149)364-981600 [place] [address] 09-24-2022 23:13-0500 Body mass index (BMI) [Ratio] 29.2 kg/m2 Dr. Joon Lopez Work Phone: [facility] 09-08-2022 08:45-0500 Body height 167.[address] Joon Lopez Work Phone: [facility] Work Phone: 09-08-2022 08:39-0500 Body mass index (BMI) [Ratio] 31.8 kg/m2 Dr. Joon Lopez Work Phone: 7(058)781-806323 [address] 09-08-2022 08:39-0500 Body weight 89.[address] Joon Lopez Work Phone: 0(715)899-362749 [place] [address] 09-08-2022 08:39-0500 Diastolic blood pressure 84 mm[Hg] Dr. Joon Lopez Work Phone: 0(501)660-130049 [place] [address] 09-08-2022 08:39-0500 Heart rate 82 /min Dr. Joon Lopez Work Phone: 1(038)033-046649 [place] [address] 09-08-2022 08:39-0500 Respiratory rate 18 /min Dr. Joon Lopez Work Phone: 5(390)707-599949 [place] [address] 09-08-2022 08:39-0500 SaO2% (BldA) [Mass fraction] 97 % Dr. Joon Lopez Work Phone: 6(834)424-784900 [place] [address] 09-08-2022 08:39-0500 Systolic blood pressure 141 mm[Hg] Dr. Joon Lopez Work Phone: 7(364)591-223900 [place] [address] 08-28-2022 11:05-0400 Body mass index (BMI) [Ratio] 31.4 kg/m2 Dr. Joon Lopez Work Phone: 3(845)351-895449 [place] [address] 08-28-2022 11:05-0400 Body temperature 97.9 [degF] Dr. Joon Lopez Work Phone: 5(575)463-801249 [place] [address] 08-28-2022 11:05-0400 Body weight 88.[address] Joon Lopez Work Phone: 6(914)364-493149 [place] [address] 08-28-2022 11:05-0400 Diastolic blood pressure 90 mm[Hg] Dr. Joon Lopez Work Phone: [facility] 08-28-2022 11:05-0400 Heart rate 83 /min Dr. Joon Lopez Work Phone: [facility] 08-28-2022 11:05-0400 Respiratory rate 16 /min Dr. Joon Lopez Work Phone: [facility] 08-28-2022 11:05-0400 SaO2% (BldA) [Mass fraction] 98 % Dr. Joon Lopez Work Phone: [facility] 08-28-2022 11:05-0400 Systolic blood pressure 142 mm[Hg] Dr. Joon Lopez Work Phone: 0(987)319-574600 [place] [address] 08-04-2022 08:09-0400 Body mass index (BMI) [Ratio] 29.7 kg/m2 Dr. Joon Lopez Work Phone: [facility] Work Phone: 08-04-2022 08:09-0400 Body weight 88.[address] Joon Lopez Work Phone: [facility] Work Phone: 08-04-2022 08:09-0400 Diastolic blood pressure 84 mm[Hg] Dr. Joon Lopez Work Phone: [facility] Work Phone: 08-04-2022 08:09-0400 Heart rate 88 /min Dr. Joon Lopez Work Phone: [facility] Work Phone: 08-04-2022 08:09-0400 Respiratory rate 18 /min Dr. Joon Lopez Work Phone: [facility] Work Phone: 08-04-2022 08:09-0400 SaO2% (BldA) [Mass fraction] 99 % Dr. Joon Lopez Work Phone: [facility] Work Phone: 08-04-2022 08:09-0400 Systolic blood pressure 150 mm[Hg] Dr. Joon Lopez Work Phone: [facility] Work Phone: 07-31-2022 13:14-0400 Diastolic blood pressure 86 mm[Hg] Dr. Joon Lopez Work Phone: [facility] Work Phone: 07-31-2022 13:14-0400 Heart rate 71 /min Dr. Joon Lopez Work Phone: [facility] Work Phone: 07-31-2022 13:14-0400 Respiratory rate 15 /min Dr. Joon Lopez Work Phone: [facility] Work Phone: 07-31-2022 13:14-0400 SaO2% (BldA) [Mass fraction] 98 % Dr. Joon Lopez Work Phone: [facility] Work Phone: 07-31-2022 13:14-0400 Systolic blood pressure 120 mm[Hg] Dr. Joon Lopez Work Phone: [facility] Work Phone: 07-31-2022 11:27-0400 Body temperature 97.9 [degF] Dr. Joon Lopez Work Phone: [facility] Work Phone: 07-31-2022 08:57-0400 Body height 172.[address] Joon Lopez Work Phone: [facility] Work Phone: 07-31-2022 08:57-0400 Body mass index (BMI) [Ratio] 29.7 kg/m2 Dr. Joon Lopez Work Phone: [facility] Work Phone: 07-31-2022 08:57-0400 Body weight 88.[address] Joon Lopez Work Phone: [facility] Work Phone: 07-01-2022 11:03-0400 Body weight 88 kg Joon Lopez MD Work Phone: [facility] 07-01-2022 11:03-0400 Diastolic blood pressure 82 mm[Hg] Joon Lopez MD Work Phone: [facility] 07-01-2022 11:03-0400 Heart rate 76 /min Joon Lopez MD Work Phone: [facility] 07-01-2022 11:03-0400 SaO2% (BldA) [Mass fraction] 96 % Joon Lopez MD Work Phone: [facility] 07-01-2022 11:03-0400 Systolic blood pressure 142 mm[Hg] Joon Lopez MD Work Phone: [facility] 06-19-2022 12:17-0400 Body mass index (BMI) [Ratio] 29.5 kg/m2 Dr. Joon Lopez Work Phone: [facility] Work Phone: 06-19-2022 09:35-0400 SaO2% (BldA) [Mass fraction] 93 % Dr. Joon Lopez Work Phone: [facility] Work Phone: 06-19-2022 09:28-0400 Body temperature 99 [degF] Dr. Joon Lopez Work Phone: [facility] Work Phone: 06-19-2022 09:28-0400 Diastolic blood pressure 56 mm[Hg] Dr. Joon Lopez Work Phone: [facility] Work Phone: 06-19-2022 09:28-0400 Heart rate 62 /min Dr. Joon Lopez Work Phone: [facility] Work Phone: 06-19-2022 09:28-0400 Inhaled oxygen flow rate 2 L/min Dr. Joon Lopez Work Phone: [facility] Work Phone: 06-19-2022 09:28-0400 Respiratory rate 17 /min Dr. Joon Lopez Work Phone: [facility] Work Phone: 06-19-2022 09:28-0400 Systolic blood pressure 101 mm[Hg] Dr. Joon Lopez Work Phone: [facility] Work Phone: 06-19-2022 06:00-0400 Body weight 89.[address] Joon Lopez Work Phone: [facility] Work Phone: 06-18-2022 10:47-0400 Body height 172.[address] Joon Lopez Work Phone: [facility] Work Phone: 06-18-2022 03:56-0400 Body temperature 98.9 [degF] Dr. Joon Lopez Work Phone: [facility] Work Phone: 06-18-2022 03:56-0400 Diastolic blood pressure 83 mm[Hg] Dr. Joon Lopez Work Phone: [facility] Work Phone: 06-18-2022 03:56-0400 Heart rate 61 /min Dr. Joon Lopez Work Phone: [facility] Work Phone: 06-18-2022 03:56-0400 Respiratory rate 17 /min Dr. Joon Lopez Work Phone: [facility] Work Phone: 06-18-2022 03:56-0400 SaO2% (BldA) [Mass fraction] 96 % Dr. Joon Lopez Work Phone: [facility] Work Phone: 06-18-2022 03:56-0400 Systolic blood pressure 98 mm[Hg] Dr. Joon Lopez Work Phone: [facility] Work Phone: 06-17-2022 23:42-0400 Body height 172.[address] Joon Lopez Work Phone: [facility] Work Phone: 06-17-2022 23:42-0400 Body mass index (BMI) [Ratio] 30.2 kg/m2 Dr. Joon Lopez Work Phone: [facility] Work Phone: 06-17-2022 23:42-0400 Body weight [address] Joon Lopez Work Phone: [facility] Work Phone: 06-17-2022 17:20-0400 Respiratory rate 16 /min Dr. Joon Lopez Work Phone: [facility] Work Phone: 06-17-2022 17:20-0400 SaO2% (BldA) [Mass fraction] 94 % Dr. Joon Lopez Work Phone: [facility] Work Phone: 06-17-2022 16:36-0400 Body temperature 97 [degF] Dr. Joon Lopez Work Phone: [facility] Work Phone: 06-17-2022 16:36-0400 Diastolic blood pressure 70 mm[Hg] Dr. Joon Lopez Work Phone: [facility] Work Phone: 06-17-2022 16:36-0400 Heart rate 120 /min Dr. Joon Lopez Work Phone: [facility] Work Phone: 06-17-2022 16:36-0400 Systolic blood pressure 133 mm[Hg] Dr. Joon Lopez Work Phone: [facility] Work Phone: 06-17-2022 14:28-0400 Body height 177.[address] Joon Lopez Work Phone: [facility] Work Phone: 06-17-2022 14:28-0400 Body mass index (BMI) [Ratio] 28.6 kg/m2 Dr. Joon Lopez Work Phone: [facility] Work Phone: 06-17-2022 14:28-0400 Body weight 90.[address] Joon Lopez Work Phone: [facility] Work Phone: 06-16-2022 23:02-0400 Diastolic blood pressure 77 mm[Hg] Dr. Joon Lopez Work Phone: [facility] Work Phone: 06-16-2022 23:02-0400 Heart rate 65 /min Dr. Joon Lopez Work Phone: [facility] Work Phone: 06-16-2022 23:02-0400 Respiratory rate 16 /min Dr. Joon Lopez Work Phone: [facility] Work Phone: 06-16-2022 23:02-0400 SaO2% (BldA) [Mass fraction] 96 % Dr. Joon Lopez Work Phone: [facility] Work Phone: 06-16-2022 23:02-0400 Systolic blood pressure 156 mm[Hg] Dr. Joon Lopez Work Phone: [facility] Work Phone: 06-16-2022 21:39-0400 Body temperature 98.9 [degF] Dr. Joon Lopez Work Phone: [facility] Work Phone: 06-16-2022 21:27-0400 Body height 172.[address] Joon Lopez Work Phone: [facility] Work Phone: 06-16-2022 21:27-0400 Body mass index (BMI) [Ratio] 28.8 kg/m2 Dr. Joon Lopez Work Phone: [facility] Work Phone: 06-16-2022 21:27-0400 Body weight 86.[address] Joon Lopez Work Phone: [facility] Work Phone: 05-06-2022 08:43-0400 Body weight 88.45 kg Xi Worley HYDRATION PLANT OPERATOR.RADAR ENGINEERING TEACHER Work Phone: [facility] 05-06-2022 08:43-0400 Diastolic blood pressure 80 mm[Hg] Xi Worley HYDRATION PLANT OPERATOR.RADAR ENGINEERING TEACHER Work Phone: [facility] 05-06-2022 08:43-0400 Heart rate 79 /min Xi Worley HYDRATION PLANT OPERATOR.RADAR ENGINEERING TEACHER Work Phone: [facility] 05-06-2022 08:43-0400 Respiratory rate 18 /min Xi Worley HYDRATION PLANT OPERATOR.RADAR ENGINEERING TEACHER Work Phone: [facility] 05-06-2022 08:43-0400 SaO2% (BldA) [Mass fraction] 96 % Xi Worley HYDRATION PLANT OPERATOR.RADAR ENGINEERING TEACHER Work Phone: [facility] 05-06-2022 08:43-0400 Systolic blood pressure 134 mm[Hg] Xi Worley HYDRATION PLANT OPERATOR.RADAR ENGINEERING TEACHER Work Phone: [facility] 04-25-2022 07:03-0400 Body mass index (BMI) [Ratio] 29.2 kg/m2 Dr. Joon Lopez Work Phone: [facility] 04-04-2022 09:37-0400 Body height 167.[address] Joon Lopez Work Phone: [facility] Work Phone: 04-04-2022 09:37-0400 Body mass index (BMI) [Ratio] 31.6 kg/m2 Dr. Joon Lopez Work Phone: [facility] Work Phone: 04-04-2022 09:37-0400 Body temperature 98.4 [degF] Dr. Joon Lopez Work Phone: [facility] Work Phone: 04-04-2022 09:37-0400 Body weight 88.[address] Joon Lopez Work Phone: [facility] Work Phone: 04-04-2022 09:37-0400 Diastolic blood pressure 90 mm[Hg] Dr. Joon Loepz Work Phone: [facility] Work Phone: 04-04-2022 09:37-0400 Heart rate 87 /min Dr. Joon Lopez Work Phone: [facility] Work Phone: 04-04-2022 09:37-0400 Respiratory rate 17 /min Dr. Joon Lopez Work Phone: [facility] Work Phone: 04-04-2022 09:37-0400 SaO2% (BldA) [Mass fraction] 98 % Dr. Joon Lopez Work Phone: [facility] Work Phone: 04-04-2022 09:37-0400 Systolic blood pressure 152 mm[Hg] Dr. Joon Lopez Work Phone: [facility] Work Phone: 03-25-2022 20:44-0400 Body mass index (BMI) [Ratio] 29.2 kg/m2 Dr. Joon Lopez Work Phone: [facility] Work Phone: 03-25-2022 16:03-0400 Diastolic blood pressure 70 mm[Hg] Joon Lopez MD Work Phone: [facility] 03-25-2022 16:03-0400 Systolic blood pressure 114 mm[Hg] Joon Lopez MD Work Phone: [facility] 03-25-2022 15:20-0400 Body weight 88 kg Joon Lopez MD Work Phone: [facility] 03-25-2022 15:20-0400 Heart rate 83 /min Joon Lopez MD Work Phone: [facility] 03-25-2022 15:20-0400 SaO2% (BldA) [Mass fraction] 97 % Joon Lopez MD Work Phone: [facility] 03-05-2022 09:00-0400 Body mass index (BMI) [Ratio] 31.6 kg/m2 Dr. Joon Lopez Work Phone: [facility] Work Phone: 03-05-2022 09:00-0400 Body temperature 98.2 [degF] Dr. Joon Lopez Work Phone: [facility] Work Phone: 03-05-2022 09:00-0400 Body weight 88.[address] Joon Lopez Work Phone: [facility] Work Phone: 03-05-2022 09:00-0400 Diastolic blood pressure 94 mm[Hg] Dr. Joon Lopez Work Phone: [facility] Work Phone: 03-05-2022 09:00-0400 Heart rate 87 /min Dr. Joon Lopez Work Phone: [facility] Work Phone: 03-05-2022 09:00-0400 Respiratory rate 18 /min Dr. Joon Lopez Work Phone: [facility] Work Phone: 03-05-2022 09:00-0400 SaO2% (BldA) [Mass fraction] 98 % Dr. Joon Lopez Work Phone: [facility] Work Phone: 03-05-2022 09:00-0400 Systolic blood pressure 177 mm[Hg] Dr. Joon Lopez Work Phone: [facility] Work Phone: 03-05-2022 09:00-0400 Body height 167.[address] Joon Lopez Work Phone: [facility] Work Phone: 01-24-2022 02:26-0400 Body mass index (BMI) [Ratio] 29.2 kg/m2 Dr. Joon Lopez Work Phone: [facility] Work Phone: 01-17-2022 11:10-0400 Diastolic blood pressure 64 mm[Hg] Joon Lopez MD Work Phone: [facility] 01-17-2022 11:10-0400 Systolic blood pressure 112 mm[Hg] Joon Lopez MD Work Phone: [facility] 01-17-2022 10:26-0400 Body weight 84.82 kg Joon Lopez MD Work Phone: [facility] 01-17-2022 10:26-0400 Heart rate 84 /min Joon Lopez MD Work Phone: [facility] 01-07-2022 08:13-0400 Body mass index (BMI) [Ratio] 29.2 kg/m2 Dr. Joon Lopez Work Phone: [facility] Work Phone: 11-26-2021 00:12-0500 Body mass index (BMI) [Ratio] 29.2 kg/m2 Dr. Joon Lopez Work Phone: [facility] Work Phone: 10-27-2021 03:16-0500 Body mass index (BMI) [Ratio] 29.2 kg/m2 Dr. Joon Lopez Work Phone: [facility] Work Phone: 10-14-2021 09:30-0500 Body height 167.[address] Joon Lopez Work Phone: [facility] Work Phone: 10-14-2021 09:30-0500 Body weight 83.[address] Joon Lopez Work Phone: [facility] Work Phone: 10-14-2021 09:30-0500 Diastolic blood pressure 72 mm[Hg] Dr. Joon Lopez Work Phone: [facility] Work Phone: 10-14-2021 09:30-0500 Heart rate 68 /min Dr. Joon Lopez Work Phone: [facility] Work Phone: 10-14-2021 09:30-0500 Respiratory rate 18 /min Dr. Joon Lopez Work Phone: [facility] Work Phone: 10-14-2021 09:30-0500 Systolic blood pressure 128 mm[Hg] Dr. Joon Lopez Work Phone: [facility] Work Phone: 10-08-2021 08:14-0500 Body mass index (BMI) [Ratio] 29.3 kg/m2 Dr. Joon Lopez Work Phone: [facility] Work Phone: 10-08-2021 08:14-0500 Body temperature 96.6 [degF] Dr. Joon Lopez Work Phone: [facility] Work Phone: 10-08-2021 08:14-0500 Body weight 82.[address] Joon Lopez Work Phone: [facility] Work Phone: 10-08-2021 08:14-0500 Diastolic blood pressure 85 mm[Hg] Dr. Joon Lopez Work Phone: [facility] Work Phone: 10-08-2021 08:14-0500 Heart rate 80 /min Dr. Joon Lopez Work Phone: [facility] Work Phone: 10-08-2021 08:14-0500 Respiratory rate 16 /min Dr. Joon Lopez Work Phone: [facility] Work Phone: 10-08-2021 08:14-0500 SaO2% (BldA) [Mass fraction] 96 % Dr. Joon Lopez Work Phone: [facility] Work Phone: 10-08-2021 08:14-0500 Systolic blood pressure 137 mm[Hg] Dr. Joon Lopez Work Phone: [facility] Work Phone: 08-25-2021 03:48-0400 Body mass index (BMI) [Ratio] 29.2 kg/m2 Dr. Joon Lopez Work Phone: [facility] Work Phone: 12-07-2020 09:43-0500 Body mass index (BMI) [Ratio] 29.2 kg/m2 Dr. Joon Lopez Work Phone: [facility] Work Phone: 08-17-2017 09:37-0400 BP Diastolic 68 mm[Hg] Kim [...] Date Encounter Type Care Provider Facility Start: 03-26-2025 ambulatory Joon Chen y:[facility] Start: 03-23-2025 End: 03-23-2025 Discharged Recurring Lisandra Cao PA -Laboratory Work Phone: Start: 03-23-2025 End: 03-23-[address] Joon Lopez MD Work Phone: [facility] Work Phone: Start: 03-23-2025 ambulatory Joon Chen y:[facility] Start: 03-13-2025 End: 03-13-2025 Subsequent hospital visit by physician [facility] Work Phone: Radiology Comment on above: Chronic pain of left knee [M25.562, G89.29] Start: 03-13-2025 End: 03-13-2025 ambulatory WHITNEY HAMMOND Facility:[facility] Start: 03-13-2025 End: 03-13-2025 Patient encounter procedure Whitney Stephany HYDRATION PLANT OPERATOR.RADAR ENGINEERING TEACHER Work Phone: [facility] [place] Comment on above: Chronic pain of righ t knee (Primary Dx); Chronic pain of left knee; Frequent UTI; Flexural atopic dermatitis; Rash of neck; Cognitive impairment; Controlled type 2 diabetes mellitus without complication, without long-term current use of insulin (HCC); Mixed hyperlipidemia; Essential hypertension; Atrial flutter, unspecified type (HCC); Severe low back pain; Encounter for therapeutic drug monitoring Start: 02-22-2025 End: 02-22-2025 Telephone encounter Joon Lopez MD Work Phone: [facility] [place] Comment on above: Medical alert neckla ce Start: 02-09-2025 End: 02-09-2025 ambulatory SELF Facility:[facility] Start: 02-09-2025 End: 02-09-2025 Office outpatient visit 25 minutes Xochitl Castrejon MD Work Phone: Geriatrics Comment on above: Dementia without beh avioral disturbance (HCC); Type 2 diabetes mellitus without complication, without long-term current use of insulin (HCC) Start: 02-09-2025 End: 02-09-2025 Follow-up encounter Margaret Wilde APRN.RADAR ENGINEERING TEACHER Work Phone: [facility] Start: 02-07-2025 End: 02-07-2025 ambulatory JOON LOPEZ Facility:[facility] Start: 02-07-2025 End: 02-07-2025 Patient encounter procedure Clarisse Joyce HYDRATION PLANT OPERATOR.RADAR ENGINEERING TEACHER Work Phone: [facility] Comment on above: Urinary tract infect ion with hematuria, site unspecified (Primary Dx); Confusion Start: 01-12-2025 End: 01-12-2025 Discharged Recurring Lisandra Cao PA -Laboratory Work Phone: Start: 01-12-2025 End: 01-12-[address] Joon Lopez MD Work Phone: [facility] Work Phone: Start: 01-07-2025 End: 01-08-2025 Follow-up encounter Clarisse Joyce APRN.CNP Work Phone: [facility] Start: 01-05-2025 End: 01-05-2025 ambulatory JOON D TIFFANYAMPAS Facility:[facility] Start: 01-05-2025 End: 01-05-2025 Patient encounter procedure Antonino JENKINS Work Phone: [facility] Comment on above: Urinary tract infect ion with hematuria, site unspecified (Primary Dx); Dysuria Start: 01-04-2025 End: 01-04-2025 Emergency department patient visit Dr. Joon Lopez MD Work Phone: -Emergency Department Work Phone: Start: 01-04-2025 End: 01-04-2025 Refill Joon Lopez MD Work Phone: [address] [place] [address] Comment on above: Refill Request Start: 12-27-2024 End: 12-28-2024 Refill Joon Lopez MD Work Phone: [facility] [place] Comment on above: Refill Request Start: 12-09-2024 End: 12-09-2024 Patient encounter procedure Leeanna ZHOU -[facility] Work Phone: Start: 12-09-2024 End: 12-09-2024 ambulatory Joon D Tiffanyampas [facility] Start: 12-07-2024 End: 12-07-2024 ambulatory JOON D TIFFANYAMPAS Facility:[facility] Start: 12-07-2024 End: 12-07-2024 Office outpatient visit 25 minutes Joon Lopez MD Work Phone: [facility] [place] Comment on above: Controlled type 2 di abetes mellitus without complication, without long-term current use of insulin (HCC) (Primary Dx); Essential hypertension; Mixed hyperlipidemia; Mild intermittent asthma without complication; Chronic pain of left knee; Sprain of left knee, unspecified ligament, initial encounter; Hypomagnesemia; Vitamin D deficiency; B12 deficiency; Insomnia, unspecified type; Encounter for therapeutic drug monitoring Start: 11-24-2024 End: 11-25-2024 Refill Whitney Hammond APRN.CNP Work Phone: [facility] [place] Comment on above: Refill Request Start: 11-10-2024 End: 11-10-2024 ambulatory SELF Facility:[facility] Start: 11-10-2024 End: 11-10-2024 Office consultation new/estab patient 60 min Xochitl Castrejon MD Work Phone: Geriatrics Comment on above: Mild dementia withou t behavioral disturbance, psychotic disturbance, mood disturbance, or anxiety, unspecified dementia type (HCC) (Primary Dx); Depression, unspecified depression type; RAMSEH (obstructive sleep apnea) Start: 11-01-2024 End: 11-01-2024 Discharged Recurring Lisandra Cao PA -Laboratory Work Phone: Start: 11-01-2024 End: 11-01-2024 [facility] Facility:[facility] Start: 10-31-2024 End: 11-02-2024 Refill Joon Lopez MD Work Phone: [facility] [place] Comment on above: Refill Request Start: 09-30-2024 End: 09-30-2024 Telephone encounter Xochitl Castrejon MD Work Phone: [facility] [place] Start: 09-28-2024 ambulatory XOCHITL CASTREJON Facility:[facility] Start: 09-28-2024 End: 09-28-2024 Subsequent hospital visit by physician [facility] (I-Stat/Lg Bore/1.5t) [facility] Comment on above: Cognitive impairment , mild, so stated [G31.84] Start: 09-19-2024 End: 09-24-2024 [facility] Start: 09-19-2024 End: 09-24-2024 Discharged Recurring Lisandra Cao PA -Laboratory Work Phone: Start: 09-13-2024 End: 09-19-2024 Telephone encounter Xochitl Castrejon MD Work Phone: Geriatrics Comment on above: Appointment Start: 09-09-2024 End: 09-09-2024 ambulatory WHITNEY HAMMOND Facility:[facility] Start: 09-09-2024 End: 09-09-2024 Patient encounter procedure Whitney Hammond APRN.RADAR ENGINEERING TEACHER Work Phone: [facility] [place] Comment on above: Controlled type 2 di abetes mellitus without complication, without long-term current use of insulin (HCC) (Primary Dx); Mixed hyperlipidemia; Essential hypertension; Atrial flutter, unspecified type (HCC); Anticoagulated on Coumadin; Degeneration of intervertebral disc of lumbar region, unspecified whether pain present; Memory deficit; Encounter for therapeutic drug monitoring Start: 09-08-2024 End: 09-08-2024 ambulatory [facility] Facility:[facility] Start: 09-08-2024 End: 09-08-2024 Patient encounter procedure Margaret Wilde APRN.RADAR ENGINEERING TEACHER Work Phone: [facility] Comment on above: Dysuria (Primary Dx) Start: 08-22-2024 End: 08-22-2024 ambulatory [facility] Facility:[facility] Start: 08-20-2024 End: 08-21-2024 Emergency department patient visit [facility] Facility:[facility] Start: 08-17-2024 End: 08-17-2024 ambulatory [facility] Facility:[facility] Start: 08-17-2024 End: 08-17-2024 Office outpatient visit 15 minutes Sandra Payton PA-C Work Phone: [facility] Comment on above: Urinary frequency (P rimary Dx); Acute UTI Start: 08-03-2024 End: 08-17-2024 Telephone encounter Xochitl Castrejon MD Work Phone: Internal Medicine [place] Comment on above: Patient Update Appointment Orders Start: 08-03-2024 End: 08-03-2024 Patient encounter procedure Xochitl Castrejon MD Work Phone: Geriatrics Comment on above: Cognitive impairment , mild, so stated (Primary Dx); Urge incontinence; Apathy; Moderate episode of recurrent major depressive disorder (HCC); Controlled type 2 diabetes mellitus without complication, without long-term current use of insulin (HCC) Start: 08-03-2024 End: 08-03-2024 ambulatory JOON D TALAMPAS Facility:[facility] Start: 07-19-2024 End: 07-19-2024 ambulatory Joon D Talampas [facility] Start: 07-14-2024 End: 07-14-2024 ambulatory Joon D Talampas Facility:[facility] Start: 07-06-2024 End: 07-11-2024 Telephone encounter Joon Lopez MD Work Phone: Internal [facility] [place] Comment on above: Patient Update Start: 07-06-2024 ambulatory Joon Jacky Bentonampas Facilit y:[facility] Start: 07-05-2024 End: 07-06-2024 Telephone encounter Joon Lopez MD Work Phone: Internal [facility] [place] Comment on above: Rx refill; not on cu rrent med list Start: 07-04-2024 End: 07-04-2024 ambulatory Joon D Talampas Facility:[facility] Start: 07-01-2024 End: 07-01-2024 ambulatory Joon D Tiffanyampas [facility] Start: 06-28-2024 ambulatory Joon D Tiffanyampas Facilit y:[facility] Start: 06-28-2024 End: 07-04-2024 Telephone encounter Joon Lopez MD Work Phone: Family [facility] [place] Comment on above: patient assistance Start: 06-22-2024 End: 06-22-2024 ambulatory SELF Facility:[facility] Start: 06-22-2024 End: 06-22-2024 Office outpatient visit 25 minutes Joon Lopez MD Work Phone: [facility] [place] Comment on above: Confusion (Primary D x); Severe low back pain; Memory deficit; Controlled type 2 diabetes mellitus without complication, without long-term current use of insulin (HCC); Pacemaker Start: 06-21-2024 ambulatory Joon Jacky Bairesas Facilit y:[facility] Start: 06-21-2024 End: 06-21-2024 Telephone encounter Joon Lopez MD Work Phone: Internal Medicine [place] Comment on above: [facility] nursing Start: 06-20-2024 End: 06-20-2024 Telephone encounter Joon Lopez MD Work Phone: [address] [place] [address] Comment on above: Patient Update Start: 06-17-2024 ambulatory Joon D Talampas Facilit y:[facility] Start: 06-17-2024 End: 06-18-2024 Evaluation and management of inpatient Joon D Talampas Facility:[facility] Start: 06-16-2024 ambulatory Joon D Talampas Facilit y:[facility] Start: 06-14-2024 ambulatory Joon D Talampas Facilit y:[facility] Start: 06-12-2024 End: 06-12-2024 Emergency department patient visit Joon D Talampas Facility:[facility] Start: 06-10-2024 Telephone encounter Joon collins MD Work Phone: Internal Medicine [place] Comment on above: Patient Question Start: 06-10-2024 End: 06-10-2024 ambulatory Joon D Talampas Facility:[facility] Start: 06-10-2024 End: 06-10-2024 ambulatory Joon D Talampas Facility:[facility] Start: 06-08-2024 End: 06-08-2024 ambulatory Joon D Talampas Facility:[facility] Start: 06-08-2024 Telephone encounter Xochitl ospina MD Work Phone: Internal [facility] [place] Comment on above: No Show Patient Update Start: 06-08-2024 ambulatory Joon D Talampas Facilit y:[facility] Start: 06-03-2024 Telephone encounter Connie snow APRN.RADAR ENGINEERING TEACHER Work Phone: [place] [facility] Comment on above: Results Start: 06-01-2024 End: 06-01-2024 Emergency department patient visit Joon D Talampas Facility:[facility] Start: 06-01-2024 End: 06-01-2024 ambulatory JOON D TALAMPAS Facility:[facility] Start: 06-01-2024 End: 06-01-2024 Patient encounter procedure Clarisse Joyce APRN.RADAR ENGINEERING TEACHER Work Phone: [facility] Comment on above: Hallucinations, unsp ecified (Primary Dx); Generalized weakness Start: 06-01-2024 Telephone encounter Joon collins MD Work Phone: [facility] [place] Comment on above: Orders Start: 06-01-2024 ambulatory Joon D Talampas Facilit y:[facility] Start: 05-27-2024 Refill Joon ferrera MD Work Phone: [facility] [place] Comment on above: Refill Request (Need s today) Start: 05-26-2024 ambulatory Joon D Talampas Facilit y:[facility] Start: 05-20-2024 ambulatory Joon D Talampas Facilit y:[facility] Start: 05-13-2024 ambulatory Joon D Talampas Facilit y:[facility] Start: 05-12-2024 Telephone encounter Joon collins MD Work Phone: [facility] [place] Comment on above: Insurance Authorizat ion Start: 05-11-2024 End: 05-11-2024 ambulatory JOON D TALAMPAS Facility:[facility] Start: 05-11-2024 End: 05-11-2024 Office outpatient visit 25 minutes Joon Lopez MD Work Phone: [facility] [place] Comment on above: Rib pain on right si de (Primary Dx); Laceration of scalp, sequela; Acute cystitis without hematuria; Severe low back pain; DDD (degenerative disc disease), lumbar; Acute pain of left knee; Sprain of left knee, unspecified ligament, initial encounter; Cognitive impairment; Memory deficit Start: 05-11-2024 Telephone encounter Joon collins MD Work Phone: [facility] [place] Comment on above: OT Plan of Care PT Plan of Care Start: 05-10-2024 Telephone encounter Joon collins MD Work Phone: [facility] [place] Comment on above: Home health plan of care; medication questions Start: 05-06-2024 Telephone encounter Joon collins MD Work Phone: [facility] [place] Comment on above: Orders Start: 05-04-2024 End: 05-07-2024 ambulatory Joon Lopez Facility:[facility] Start: 05-04-2024 End: 05-04-2024 Emergency department patient visit Joon Lopez Facility:[facility] Start: 04-13-2024 End: 04-13-2024 [facility] Start: 04-06-2024 Telephone encounter Whitney valentine HYDRATION PLANT OPERATOR.RADAR ENGINEERING TEACHER Work Phone: Internal [facility] Comment on above: Results Start: 03-24-2024 Telephone encounter Joon collins MD Work Phone: Internal [facility] Comment on above: Letter for Coummunit y Action Start: 03-22-2024 Telephone encounter Whitney valentine HYDRATION PLANT OPERATOR.RADAR ENGINEERING TEACHER Work Phone: Internal [facility] Comment on above: Results; Care Coordi nator - Other Start: 03-22-2024 End: 03-22-2024 Patient encounter procedure Whitney Hammond HYDRATION PLANT OPERATOR.RADAR ENGINEERING TEACHER Work Phone: Internal [facility] Comment on above: Controlled type 2 di abetes mellitus without complication, without long-term current use of insulin (HCC) (Primary Dx); Loose stools; Cognitive impairment; Anticoagulated on Coumadin; Atrial flutter, unspecified type (HCC); Vitamin D deficiency; Encounter for therapeutic drug monitoring Start: 03-21-2024 Refill Whitney Hammond HYDRATION PLANT OPERATOR.RADAR ENGINEERING TEACHER Work Phone: Internal [facility] Comment on above: Refill Request Start: 03-17-2024 Telephone encounter Joon collins MD Work Phone: Internal [facility] Comment on above: Orders (Bone Density ) Start: 02-03-2024 End: 02-03-2024 Office outpatient visit 15 minutes Joon Lopez MD Work Phone: Internal [facility] Comment on above: Near syncope (Primar y Dx); Urinary incontinence without sensory awareness; Persistent disorder of initiating or maintaining sleep; Hydronephrosis, right; Dehydration Start: 01-30-2024 Non-patient / Non-visit Dr. Leeann Lopez Work Phone: [facility] Work Phone: Start: 01-29-2024 Non-patient / Non-visit Dr. Leeann Lopez Work Phone: [facility] Work Phone: Start: 01-29-2024 End: 01-30-2024 Evaluation and management of inpatient Dr. Joon Lopez Work Phone: [facility]-Progressive Care Unit Work Phone: Start: 01-29-2024 End: 01-30-[address] Joon Lopez Work Phone: [facility] Work Phone: Start: 01-28-2024 End: 01-29-2024 Emergency department patient visit [facility] Facility:B Start: 01-28-2024 End: 01-28-2024 Emergency department patient visit [facility] Start: 01-28-2024 ambulatory Joon ferrera MD Work Phone: Internal Medicine [place] Comment on above: Neurologic Problem Start: 01-22-2024 End: 01-22-2024 Admission to same day surgery center Dr. Joon Lopez Work Phone: [facility] Day [facility] Start: 01-22-2024 End: 01-22-[address] Joon Lopez Work Phone: [facility] Work Phone: Start: 01-06-2024 End: 01-06-[address] Joon Lopez Work Phone: [facility] Work Phone: Start: 01-05-2024 End: 01-05-2024 Office outpatient visit 40 minutes Joon Lopez MD Work Phone: [facility] [place] Comment on above: Urinary incontinence without sensory awareness (Primary Dx); Memory deficits; Dysuria; Nocturia more than twice per night; Urinary urgency; Atrial flutter, unspecified type (HCC); Encounter for immunization Start: 01-04-2024 Telephone encounter Joon collins MD Work Phone: [facility] [place] Comment on above: memory issue Start: 01-04-2024 End: 01-23-[address] Joon Lopez Work Phone: [facility] Work Phone: Start: 01-04-2024 End: 01-23-[address] Joon Lopez Work Phone: [facility]-Laboratory Work Phone: Start: 01-04-[address] Joon Lopez Work Phone: [facility] Work Phone: Start: 01-01-2024 End: 01-01-[address] Joon Lopez Work Phone: [facility] Work Phone: Start: 01-01-2024 End: 01-01-[address] Joon Lopez Work Phone: [facility] Work Phone: Start: 12-31-2023 Non-patient / Non-visit Dr. Leeann Lopez Work Phone: [facility] Work Phone: Start: 12-30-2023 End: 12-30-2023 Non-patient / Non-visit Dr. Joon Lopez Work Phone: [facility] Work Phone: Start: 12-29-2023 End: 12-31-2023 Evaluation and management of inpatient Dr. Joon Lopez Work Phone: [facility]-Medical Surgical 3 Work Phone: Start: 12-14-2023 Telephone encounter Joon collins MD Work Phone: Internal Medicine [place] Comment on above: referral request Start: 12-04-2023 Non-patient / Non-visit Dr. Leeann Lopez Work Phone: [facility] Start: 12-02-2023 End: 12-02-[address] Joon Lopez Work Phone: [facility] Work Phone: Start: 12-02-2023 End: 12-02-[address] Joon Lopez Work Phone: [facility]-Pulmonary Services/Neurology Work Phone: Start: 11-28-2023 End: 11-28-2023 Emergency department patient visit Dr. Joon Lopez Work Phone: [facility]-Emergency Department Work Phone: Start: 11-27-2023 Non-patient / Non-visit Dr. Leeann Lopez Work Phone: [facility] Start: 11-27-2023 End: 11-27-[address] Joon Lopez Work Phone: [facility] Work Phone: Start: 11-27-2023 End: 11-27-[address] Joon Lopez Work Phone: [facility]-Pulmonary Services/Neurology Work Phone: Start: 11-26-2023 End: 11-26-[address] [facility] Work Phone: Start: 11-12-2023 End: 11-12-[address] Joon Lopez Work Phone: [facility] Work Phone: Start: 11-09-2023 End: 11-09-2023 Emergency department [facility] Start: 10-01-2023 End: 10-02-2023 Emergency department patient visit Dr. Joon Lopez Work Phone: [facility]-Emergency Department Work Phone: Start: 09-30-2023 End: 09-30-[address] 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 Joon Lopez Work Phone: [facility] Work Phone: Start: 09-03-2023 End: 09-03-[address] Joon Lopez Work Phone: [facility] Work Phone: Start: 09-01-2023 End: 09-01-2023 Emergency department patient visit Dr. Joon Lopez Work Phone: [facility]-Emergency Department Work Phone: Start: 08-13-2023 End: 08-25-[address] Joon Lopez Work Phone: [facility] Work Phone: Start: 07-23-2023 End: 07-25-[address] Joon Lopez Work Phone: [facility] Work Phone: Start: 07-23-2023 End: 07-25-[address] Joon Lopez Work Phone: [facility] Work Phone: Start: 07-16-2023 Telephone encounter Joon collins MD Work Phone: [facility] [place] Comment on above: Glucometer Order Start: 07-13-2023 Refill Joon ferrera MD Work Phone: [facility] [place] Comment on above: Refill Request Start: 07-10-2023 End: 07-10-[address] Joon Lopez Work Phone: [facility] Work Phone: Start: 07-10-2023 End: 07-10-[address] [facility] Start: 07-10-[address] [facility] Start: 07-10-2023 End: 07-10-[address] Joon Lopez Work Phone: [facility] Work Phone: Start: 06-25-2023 End: 06-25-[address] Joon Lopez Work Phone: [facility] Work Phone: Start: 06-25-2023 End: 06-25-[address] [facility] Work Phone: Start: 06-25-[address] Joon Lopez Work Phone: [facility] Work Phone: Start: 06-16-2023 Telephone encounter Joon collins MD Work Phone: [facility] [place] Comment on above: Patient Concerns Start: 06-12-2023 End: 06-12-[address] [facility] Work Phone: Start: 05-28-2023 End: 05-28-[address] Joon Lopez Work Phone: [facility] Work Phone: Start: 05-28-2023 End: 05-28-[address] Joon Lopez Work Phone: [facility]Labor[facility] Work Phone: Start: 05-21-2023 End: 05-21-2023 Emergency department patient visit Dr. Joon Lopez Work Phone: [facility]Emergency Department Work Phone: Start: 05-12-2023 End: 05-12-2023 Patient encounter procedure Whitney Hammond APRN.RADAR ENGINEERING TEACHER Work Phone: [facility] [place] Comment on above: Cellulitis of foot ( Primary Dx); Partial thickness burn of left foot, subsequent encounter; Controlled type 2 diabetes mellitus without complication, without long-term current use of insulin ([facility]) Start: 05-09-2023 End: 05-09-2023 Emergency department patient visit Dr. Joon Lopez Work Phone: [facility]Emergency Department Work Phone: Start: 05-04-2023 Refill Joon ferrera MD Work Phone: [address] [place] [address] Comment on above: Refill Request; Refi ll Request Start: 04-24-2023 End: 04-24-[address] Joon Lopez Work Phone: [facility] Work Phone: Start: 04-23-2023 End: 04-24-2023 Non-patient / Non-visit Dr. Joon Lopez Work Phone: [facility] Start: 04-16-2023 End: 04-16-[address] Joon [facility] Work Phone: Start: 04-16-2023 End: 04-16-2023 Office outpatient visit 15 minutes Trini Tang APRN.CNS Work Phone: [facility] Comment on above: Back strain, subsequ ent encounter (Primary Dx); Mild intermittent asthma without complication; Muscle spasm; Back strain, sequela; Severe low back pain; DDD (degenerative disc disease), lumbar; Encounter for immunization; Screening for diabetic retinopathy; Controlled type 2 diabetes mellitus without complication, without long-term current use of insulin ([facility]) Start: 04-15-2023 ambulatory Joon ferrera MD Work Phone: Internal Medicine [place] Comment on above: Chest Heaviness Start: 04-03-2023 End: 04-03-2023 Office outpatient visit 25 minutes Joon Lopez MD Work Phone: Internal [facility] Comment on above: Controlled type 2 di abetes mellitus without complication, without long-term current use of insulin (HCC) (Primary Dx); Urinary tract infection without hematuria, site unspecified; Strain of neck muscle, subsequent encounter; Primary hypertension; Contusion of left hip, subsequent encounter; Mixed hyperlipidemia; Atrial flutter, unspecified type ([facility]); Pacemaker; Essential hypertension; Mild intermittent asthma without complication; RAMESH (obstructive sleep apnea); 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 Joon Lopez Work Phone: [facility] Work Phone: Start: 03-31-2023 End: 03-31-[address] Joon Lopez Work Phone: [facility]Labor[facility] Work Phone: Start: 03-31-2023 End: 03-31-2023 Patient encounter procedure Whitney Hammond APRN.RADAR ENGINEERING TEACHER Work Phone: [facility] Comment on above: Strain of neck muscl e, initial encounter (Primary Dx); Severe low back pain; DDD (degenerative disc disease), lumbar; Encounter for therapeutic drug monitoring Start: 03-26-2023 Refill Joon ferrera MD Work Phone: Internal [facility] Comment on above: Refill Request Start: 03-18-2023 End: 03-18-2023 Emergency department patient visit Dr. Joon Lopez Work Phone: [facility]Emergency Department Work Phone: Start: 03-17-2023 End: 03-18-2023 Emergency department patient visit Dr. Joon Lopez Work Phone: [facility]Emergency Department Work Phone: Start: 12-26-2022 Telephone encounter Joon collins MD Work Phone: Internal [facility] Comment on above: Insurance Authorizat ion Start: 12-26-2022 End: 12-26-2022 Office outpatient visit 25 minutes Joon Lopez MD Work Phone: [facility] [place] Comment on above: Controlled type 2 di [...] Joon collins MD Work Phone: [facility] [place] Comment on above: Patient Update Start: 12-04-2022 End: 12-04-2022 Patient encounter procedure Daron Singh MD Work Phone: [facility] Comment on above: Urinary frequency (P rimary Dx) Start: 12-02-2022 End: 12-02-[address] Joon Lopez Work Phone: [facility] Work Phone: Start: 12-02-2022 End: 12-02-[address] Joon Lopez Work Phone: [facility] Start: 11-20-2022 Refill Joon ferrera MD Work Phone: [facility] [place] Comment on above: Refill Request Start: 10-14-2022 End: 10-14-[address] Joon Lopez Work Phone: [facility] Medicine [facility] Start: 09-25-2022 End: 09-25-[address] Joon Lopez Work Phone: [facility] Work Phone: Start: 09-25-2022 End: 09-25-[address] Joon Lopez Work Phone: [facility] Start: 09-15-2022 Refill Joon ferrera MD Work Phone: [facility] [place] Comment on above: Refill Request Start: 09-08-2022 End: 09-08-[address] Joon Lopez Work Phone: [facility] Start: 09-02-2022 End: 09-24-[address] Joon Lopez Work Phone: [facility] Work Phone: Start: 09-02-2022 End: 09-24-[address] Joon Lopez Work Phone: [facility]Labor[facility] Start: 08-28-2022 End: 08-28-[address] Joon Lopez Work Phone: [facility] Start: 08-04-2022 End: 08-04-[address] Joon Lopez Work Phone: [facility] Start: 07-31-2022 End: 07-31-2022 Emergency department patient visit Dr. Joon Lopez Work Phone: [facility]Emergency Department Start: 07-28-2022 Refill Trini Tang APRN.CNS Work Phone: Internal [facility] Start: 07-01-2022 End: 07-01-2022 Office outpatient visit 25 minutes Joon Lopez MD Work Phone: [facility] [place] Comment on above: COVID-19 virus infec tion (Primary Dx); Diarrhea of infectious origin; Severe low back pain; DDD (degenerative disc disease), lumbar; Acute pain of left knee; Sprain of left knee, unspecified ligament, initial encounter; Severe low back pain Start: 06-19-2022 Non-patient / Non-visit Dr. Leeann Lopez Work Phone: [facility] Start: 06-18-2022 End: 06-19-2022 Evaluation and management of inpatient Dr. Joon Lopez Work Phone: [facility]-Progressive Care Unit Start: 06-18-2022 End: 06-19-[address] Joon Lopez Work Phone: [facility] Work Phone: Start: 06-18-2022 Non-patient / Non-visit Dr. Leeann Lopez Work Phone: [facility] Start: 06-17-2022 End: 06-17-2022 Emergency department [facility] Start: 06-17-2022 Telephone encounter Joon collins MD Work Phone: Internal [facility] Comment on above: Future Appointment Start: 06-16-2022 End: 06-16-2022 Emergency department patient visit Dr. Joon Lopez Work Phone: [facility]Emergency Department Start: 06-16-2022 ambulatory Erin goodrich RN NURSE PHARMACOVIGILANCE SPECIALIST Comment on above: Confusion Start: 05-07-2022 Telephone encounter Xi buenrostro APRN.RADAR ENGINEERING TEACHER Work Phone: Family [facility] Comment on above: Results Start: 05-06-2022 Telephone encounter Joon collins MD Work Phone: [facility] [place] Comment on above: Future Appointment ( 05-06-22) Results (radiology) (CXR); Results Start: 05-06-2022 End: 05-06-2022 Subsequent hospital visit by physician [facility] Work Phone: Radiology Comment on above: ov Start: 05-06-2022 End: 05-06-2022 Office outpatient visit 15 minutes Xi Worley APRN.RADAR ENGINEERING TEACHER Work Phone: [facility] Comment on above: Mild intermittent as thma with acute exacerbation (Primary Dx); Viral upper respiratory tract infection Start: 04-18-2022 Refill Joon ferrera MD Work Phone: [facility] [place] Comment on above: Refill Request (SEE RX NOTES) Start: 04-04-2022 End: 04-04-[address] Joon Lopez Work Phone: [facility] Start: 04-02-2022 Non-patient / Non-visit Dr. Leeann Lopez Work Phone: [facility] Start: 04-02-2022 End: 04-02-[address] Joon Lopez Work Phone: [facility] Start: 04-02-[address] Joon Lopez Work Phone: [facility] Start: 04-02-2022 End: 04-02-[address] Joon Lopez Work Phone: [facility]Cardiov[facility] Start: 03-25-2022 End: 03-25-2022 Office outpatient visit 25 minutes Joon Lopez MD Work Phone: [facility] [place] Comment on above: Controlled type 2 di [...] left knee, unspecified ligament, initial encounter Start: 03-18-2022 End: 03-18-[address] Joon Lopez Work Phone: [facility] Start: 03-05-2022 End: 03-05-[address] Joon Lopez Work Phone: [facility] Start: 01-17-2022 End: 01-17-2022 Office outpatient visit 25 minutes Joon Lopez MD Work Phone: [facility] [place] Comment on above: Diabetes mellitus ty pe 2, controlled, without complications (HCC) (Primary Dx); Essential hypertension; Moderate persistent asthma without complication; Colon cancer screening; Eczema, unspecified type; Severe low back pain; DDD (degenerative disc disease), lumbar; Acute pain of left knee; Sprain of left knee, unspecified ligament, initial encounter; Back strain, sequela Start: 01-07-2022 End: 01-23-[address] Joon Lopez Work Phone: [facility] Start: 12-04-2021 End: 12-04-[address] Joon Lopez Work Phone: [facility] Start: 11-22-2021 End: 11-22-2021 Patient encounter procedure Joon Lopez MD Work Phone: [facility] [place] Comment on above: Controlled type 2 di abetes mellitus without complication, without long-term current use of insulin (HCC) (Primary Dx); Moderate persistent asthma without complication; Anticoagulated on Coumadin; Pacemaker; Atrial flutter, unspecified type (HCC); Severe low back pain; DDD (degenerative disc disease), lumbar; Acute pain of left knee; Sprain of left knee, unspecified ligament, initial encounter Start: 10-29-2021 End: 11-25-[address] Joon Lopez Work Phone: [facility] Start: 10-14-2021 End: 10-26-[address] [facility] Start: 10-14-2021 End: 10-14-[address] Joon Lopez Work Phone: [facility] Start: 10-08-2021 End: 10-08-[address] Joon Lopez Work Phone: [facility] Procedures Date Procedure Procedure Detail Performing Clinician Start: 02-07-2025 Urnls dip stick/tablet rgnt auto w/o microscopy Clarisse Joyce HYDRATION PLANT OPERATOR.RADAR ENGINEERING TEACHER Work Phone: Start: 01-05-2025 Urnls dip stick/tablet rgnt auto w/o microscopy Antonino JENKINS Work Phone: Start: 01-04-2025 Plain x-ray of humerus Dr. Joon Lopez MD Work Phone: Start: 01-04-2025 Plain X-ray of shoulder Dr. Joon ferrera MD Work Phone: Start: 09-08-2024 Urnls dip stick/tablet rgnt auto w/o microscopy Margaret Wilde HYDRATION PLANT OPERATOR.RADAR ENGINEERING TEACHER Work Phone: Start: 08-17-2024 Urnls dip stick/tablet rgnt auto w/o microscopy Souleymane Shepard HYDRATION PLANT OPERATOR.RADAR ENGINEERING TEACHER Work Phone: Start: 06-01-2024 Urnls dip stick/tablet rgnt auto w/o microscopy Clarisse Joyce HYDRATION PLANT OPERATOR.RADAR ENGINEERING TEACHER Work Phone: Start: 01-29-2024 CT of head without contrast Dr. Joon Lopez Work Phone: Start: 01-29-2024 SARS-CoV-2, Influenza & RSV (PCR) Dr. Joon Lopez Work Phone: Start: 01-29-2024 CT of abdomen and pelvis without contrast Dr. Joon Lopez Work Phone: Start: 01-29-2024 Plain chest X-ray Dr. Joon Lopez Work Phone: Start: 01-22-[address] Joon Lopez Work Phone: Start: 01-22-[address] Joon Lopez Work Phone: Start: 01-05-2024 Urnls dip stick/tablet rgnt auto w/o microscopy Joon Lopez MD Work Phone: Start: 01-01-2024 X-ray of lumbosacral spine Dr. Joon Lopez Work Phone: Start: 12-30-[address] Joon Lopez Work Phone: Start: 12-30-2023 Insertion of stent into ureter Dr. Joon Lopez Work Phone: Start: 12-29-2023 Plain chest X-ray Dr. Joon Lopez Work Phone: Start: 12-29-2023 Computed tomography of abdomen and pelvis with intravenous contrast Dr. Joon Lopez Work Phone: Start: 12-29-2023 CT of head without contrast Dr. Joon Lopez Work Phone: Start: 12-29-[address] Joon Lopez Work Phone: Start: 11-09-2023 Plain x-ray of elbow Dr. Joon Lopez Work Phone: Start: 11-09-2023 Plain X-ray of tibia and fibula Dr. Joon Lopez Work Phone: Start: 09-01-2023 CT cervical spine without contrast Dr. Joon Lopez Work Phone: Start: 09-01-2023 CT of head without contrast Dr. Joon Lopez Work Phone: Start: 05-21-2023 X-ray of both feet Dr. Joon Lopez Work Phone: Start: 03-18-2023 Plain x-ray of pelvis and lower extremity Dr. Joon Lopez Work Phone: Start: 03-18-2023 CT of head without contrast Dr. Joon Lopez Work Phone: Start: 03-17-2023 Plain chest X-ray Dr. Joon Lopez Work Phone: Start: 03-17-2023 Bacteria identified in Blood by Culture Dr. Joon Lopez Work Phone: Start: 03-17-2023 SARS-CoV-2 & FLU Antigen (Rapid) Dr. Joon Lopez Work Phone: Start: 12-04-2022 Urnls dip stick/tablet rgnt auto w/o microscopy Arina Alvares PA-C Work Phone: Start: 07-31-2022 Plain chest X-ray Dr. Joon Lopez Work Phone: Start: 06-18-2022 CT angiography of head and neck Dr. Joon Lopez Work Phone: Start: 06-18-2022 CT of head without contrast Dr. Joon Lopez Work Phone: Start: 06-17-2022 CT of head without contrast Dr. Joon Lopez Work Phone: Start: 06-16-2022 CT of head without contrast Dr. Joon Lopez Work Phone: Start: 06-16-2022 Plain chest X-ray Dr. Joon Lopez Work Phone: Start: 05-06-2022 Radiologic exam chest 2 views Xi Worley APRN.RADAR ENGINEERING TEACHER Work Phone: Start: 05-06-2022 2019 CORONAVIRUS Xi Worley APRN.RADAR ENGINEERING TEACHER Work Phone: Start: 03-25-2022 Hemoglobin A1c/Hemoglobin.total in Blood Joon Lopez MD Work Phone: Start: 03-25-2022 Adult depression screening assessment Joon Lopez MD Work Phone: Start: 03-11-2021 Adult depression screening assessment Joon Lopez MD Work Phone: Start: 08-10-2017 End: 08-10-2017 Urnls dip stick/tablet rgnt non-auto w/o micrscp Soren JENKINS Work Phone: Start: 07-27-2017 End: 07-27-2017 JERSONN Grant Ko MD Work Phone: Start: 07-27-2017 [...] MD Work Phone: Start: 01-12-2017 End: 07-16-2017 AVELINO Ko MD Work Phone: Start: 01-12-2017 End: 07-16-2017 Follow Up Appt 6 months Grant Ko MD Work Phone: Start: 01-05-2017 End: 01-16-2017 Complete sleep workup (PSG,CPAP as indicated) & Follow up Leeanna Mascorro RADAR ENGINEERING TEACHER Work Phone: Start: 01-05-2017 End: 01-16-2017 DMB Leeanna Mascorro RADAR ENGINEERING TEACHER Work Phone: Start: 01-05-2017 End: 01-16-2017 Follow Up Appt 2 months Leeanna valentine RADAR ENGINEERING TEACHER Work Phone: Start: 01-05-2017 End: 01-16-2017 Pulmonary Function Test - complete Leeanna Mascorro RADAR ENGINEERING TEACHER Work Phone: Start: 01-05-2017 End: 01-16-2017 Pulmonary stress test/simple Leeanna S Ludwin RADAR ENGINEERING TEACHER Work Phone: Bacteria identified in Blood by Culture Dr. Joon Lopez Work Phone: History of appendectomy History of append ectomy Dr. Joon Lopez Work Phone: Respiratory Panel (PCR) Dr. Joon Lopez Work Phone: SARS-CoV-2 & FLU Ant igen (Rapid) Dr. Joon Lopez Work Phone: Urine culture Dr. Joon ayers Work Phone: Plan of Treatment Date Care Activity Detail Author Start: 03-13-2026 Annual PCP Team [employer] Department Head jr Disease Visit Annual PCP Team Chronic Disease Visit [facility] Start: 03-13-2026 BP Controlled (<130/80) BP Controlle d (<130/80) [facility] Start: 02-09-2026 BP Controlled (<130/80) BP Controlle d (<130/80) [facility] Start: 12-07-2025 Annual PCP Team [employer] Department Head jr Disease Visit Annual PCP Team Chronic Disease Visit [facility] Start: 12-07-2025 BP Controlled (<130/80) BP Controlle d (<130/80) [facility] Start: 11-10-2025 BP Controlled (<130/80) BP Controlle d (<130/80) [facility] Start: 09-09-2025 Annual PCP Team [employer] Department Head jr Disease Visit Annual PCP Team Chronic Disease Visit [facility] Start: 09-09-2025 BP Controlled (<130/80) BP Controlle d (<130/80) [facility] Start: 09-09-2025 Covid-19 Vaccine ( season) Covid-19 Vaccine () [facility] Comment on above: Postponed from 06/26 (Declined at this time) Start: 09-08-2025 BP Controlled (<130/80) BP Controlle d (<130/80) [facility] Start: 08-17-2025 BP Controlled (<130/80) BP Controlle d (<130/80) [facility] Start: 08-03-2025 BP Controlled (<130/80) BP Controlle d (<130/80) [facility] Start: 06-26-2025 Influenza vaccination Influenz a Vaccine (Season Ended) [facility] Start: 06-22-2025 Annual PCP Team [employer] Head jr Disease Visit Annual PCP Team Chronic Disease Visit [facility] Start: 06-22-2025 BP Controlled (<130/80) BP Controlle d (<130/80) [facility] Start: 06-19-2025 End: 06-19-2025 Patient encounter procedure 06/19/2025 7:20 AM EDT Office Visit [facility] [place] [address] [facility] [place] [id number] Whitney Hammond APRN.RADAR ENGINEERING TEACHER [address] [facility] [place] [phone] 3 month follow up [facility] [place] Comment on above: 3 month follow up Start: 06-06-2025 Hemoglobin A1c measurement HbA1C [facility] Start: 05-11-2025 End: 05-11-2025 Patient encounter procedure 05/11/2025 4:00 PM EDT Office Visit Geriatrics [address] [facility] [place] [id number] Xochitl Castrejon MD [address] [facility] [place] [phone] 3 month geriatric Geriatrics Comment on above: 3 month geriatric Start: 05-11-2025 Annual PCP Team [employer] Department Head jr Disease Visit Annual PCP Team Chronic Disease Visit [facility] Start: 05-06-2025 End: 08-05-2025 Lipid 1996 panel - Serum or Plasma LIPID PANEL BASIC Lab Routine Mixed hyperlipidemia Expected: 05/06/2025 (Approximate), Expires: 08/05/2025 [facility] Comment on above: Expected: 05/06/2025 (Approximate), Expires: 08/05/2025 Start: 04-24-2025 Influenza vaccination Influenza Vacc ine (#1) [facility] Comment on above: Postponed from 06/26 (Declined at this time) Start: 04-13-2025 End: 07-13-2025 CBC W Auto Differential panel - Blood COMPLETE BLOOD COUNT AND DIFFERENTIAL Lab Routine Encounter for therapeutic drug monitoring Expected: 04/13/2025, Expires: 07/13/2025 [facility] Work Phone: Comment on above: Expected: 04/13/2025 , Expires: 07/13/2025 Start: 04-13-2025 End: 07-13-2025 Comprehensive metabolic 2000 panel - Serum or Plasma COMPREHENSIVE METABOLIC PANEL Lab Routine Encounter for therapeutic drug monitoring Expected: 04/13/2025, Expires: 07/13/2025 [facility] Comment on above: Expected: 04/13/2025 , Expires: 07/13/2025 Start: 04-13-2025 End: 07-13-2025 Hemoglobin A1c in Blood HEMOGLOBIN A1C Lab Routine Controlled type 2 diabetes mellitus without complication, without long-term current use of insulin (HCC) Expected: 04/13/2025, Expires: 07/13/2025 [facility] Comment on above: Expected: 04/13/2025 , Expires: 07/13/2025 Start: 04-13-2025 End: 07-13-2025 LIPID PANEL, NONFASTING LIPID PANEL, NONFASTING Lab Routine Mixed hyperlipidemia Expected: 04/13/2025, Expires: 07/13/2025 [facility] Comment on above: Expected: 04/13/2025 , Expires: 07/13/2025 Start: 03-22-2025 Annual PCP Team [employer] Department Head jr Disease Visit Annual PCP Team Chronic Disease Visit [facility] Start: 03-13-2025 End: 06-12-2025 Microalbumin/Creatinine [Mass Ratio] in Urine ALBUMIN/CREATININE RATIO, URINE Lab Routine Expected: 03/13/2025, Expires: 06/12/2025 [facility] Comment on above: Expected: 03/13/2025 , Expires: 06/12/2025 Start: 03-10-2025 End: 03-10-2025 Patient encounter procedure [facility] [place] Comment on above: 3 month follow up Start: 02-09-2025 End: 02-09-2025 Patient encounter procedure 02/09/2025 3:00 PM EDT Office Visit Geriatrics [address] [place], [place] [id number] Xochitl Castrejon MD [address] [place] [address] 3 MONTH FOLLOW UP Geriatrics Comment on above: 3 MONTH FOLLOW UP Start: 02-02-2025 Annual PCP Team [employer] Department Head jr Disease Visit Annual PCP Team Chronic Disease Visit [facility] Start: 02-02-2025 BP Controlled (<130/80) BP Controlle d (<130/80) [facility] Start: 01-19-2025 Annual PCP Team [employer] Head jr Disease Visit Annual PCP Team Chronic Disease Visit [facility] Start: 01-19-2025 BP Controlled (<130/80) BP Controlle d (<130/80) [facility] Start: 01-10-2025 Glaucoma screening Dilated Retinal E xam [facility] Start: 01-04-2025 [facility] Start: 01-04-2025 Annual PCP Team [employer] Department Head jr Disease Visit Annual PCP Team Chronic Disease Visit [facility] Start: 01-04-2025 BP Controlled (<130/80) BP Controlle d (<130/80) [facility] Start: 01-04-2025 Pneumococcal Vaccine : 50+ (2 of 2 - PCV) Pneumococcal Vaccine: 50+ (2 of 2 - PCV) [facility] Comment on above: Postponed from 10/01 (Declined at this time) Start: 01-04-2025 Pneumococcal Vaccine : 65+ (2 of 2 - PCV) Pneumococcal Vaccine: 65+ (2 of 2 - PCV) [facility] Comment on above: Postponed from 10/01 (Declined at this time) Start: 12-07-2024 End: 02-24-2025 25-hydroxyvitamin D3 [Mass/volume] in Serum or Plasma [facility] Comment on above: Expected: 12/07/2024 (Approximate), Expires: 02/24/2025 Start: 12-07-2024 End: 02-08-2025 CBC W Auto Differential panel - Blood [facility] Work Phone: Comment on above: Expected: 12/07/2024 (Approximate), Expires: 02/08/2025 Start: 12-07-2024 End: 02-08-2025 Comprehensive metabolic 2000 panel - Serum or Plasma [facility] Comment on above: Expected: 12/07/2024 (Approximate), Expires: 02/08/2025 Start: 12-07-2024 End: 02-08-2025 Hemoglobin A1c in Blood [facility] Comment on above: Expected: 12/07/2024 (Approximate), Expires: 02/08/2025 Start: 12-07-2024 End: 02-08-2025 Microalbumin/Creatinine [Mass Ratio] in Urine ALBUMIN/CREATININE RATIO, URINE Lab Routine Controlled type 2 diabetes mellitus without complication, without long-term current use of insulin (HCC) Expected: 12/07/2024 (Approximate), Expires: 02/08/2025 [facility] Comment on above: Expected: 12/07/2024 (Approximate), Expires: 02/08/2025 Start: 12-07-2024 End: 12-07-2024 Patient encounter procedure 12/07/2024 10:00 AM EST Office Visit [facility] [place] [address] [place] [address] Joon Lopez MD [address] [place] [address] 3 month follow up [facility] [place] Comment on above: 3 month follow up Start: 11-25-2024 End: 02-24-2025 25-hydroxyvitamin D3 [Mass/volume] in Serum or Plasma VITAMIN D 25 HYDROXY Lab Routine Vitamin D deficiency Expected: 11/25/2024, Expires: 02/24/2025 [facility] Work Phone: Comment on above: Expected: 11/25/2024 , Expires: 02/24/2025 Start: 11-10-2024 End: 11-10-2024 Patient encounter procedure 11/10/2024 11:30 AM EST Office Visit Geriatrics [address] [place], [place] [phone] Xochitl Castrejon MD [address] [place], [place] [id number] 6 week follow up Geriatrics Comment on above: 6 week follow up Start: 11-09-2024 End: 02-08-2025 CBC W Auto Differential panel - Blood COMPLETE BLOOD COUNT AND DIFFERENTIAL Lab Routine Encounter for therapeutic drug monitoring Expected: 11/09/2024, Expires: 02/08/2025 [facility] Work Phone: Comment on above: Expected: 11/09/2024 , Expires: 02/08/2025 Start: 11-09-2024 End: 02-08-2025 Comprehensive metabolic 2000 panel - Serum or Plasma COMPREHENSIVE METABOLIC PANEL Lab Routine Encounter for therapeutic drug monitoring Expected: 11/09/2024, Expires: 02/08/2025 [facility] Comment on above: Expected: 11/09/2024 , Expires: 02/08/2025 Start: 11-09-2024 End: 02-08-2025 Hemoglobin A1c in Blood HEMOGLOBIN A1C Lab Routine Controlled type 2 diabetes mellitus without complication, without long-term current use of insulin (HCC) Expected: 11/09/2024, Expires: 02/08/2025 [facility] Comment on above: Expected: 11/09/2024 , Expires: 02/08/2025 Start: 11-09-2024 End: 02-08-2025 Lipid 1996 panel - Serum or Plasma LIPID PANEL BASIC Lab Routine Mixed hyperlipidemia Expected: 11/09/2024, Expires: 02/08/2025 [facility] Comment on above: Expected: 11/09/2024 , Expires: 02/08/2025 Start: 11-09-2024 End: 02-08-2025 Microalbumin/Creatinine [Mass Ratio] in Urine ALBUMIN/CREATININE RATIO, URINE Lab Routine Controlled type 2 diabetes mellitus without complication, without long-term current use of insulin (HCC) Expected: 11/09/2024, Expires: 02/08/2025 [facility] Comment on above: Expected: 11/09/2024 , Expires: 02/08/2025 Start: 10-27-2024 End: 10-27-2024 Patient encounter procedure 10/27/2024 3:00 PM EST Office Visit Geriatrics [address] [place] [address] Xochitl Castrejon MD [address] [place] [address] 6 week follow up Geriatrics Comment on above: 6 week follow up Start: 10-26-2024 Advance Directive Discussion Advance Directive Discussion [facility] Start: 10-07-2024 Annual PCP Team [employer] Department Head jr Disease Visit Annual PCP Team Chronic Disease Visit [facility] Start: 09-28-2024 End: 09-28-2024 Patient encounter procedure 09/28/2024 9:40 AM EST Appointment [facility] [address] [place] [address] MOVED TO 09/28/2024 @ 0940 [place] PER WILMER. [facility] Comment on above: MOVED TO 09/28/2024 @ 0940 [place] CHRIS GUILLEN. Start: 09-26-2024 End: 09-26-2024 Patient encounter procedure 09/26/2024 6:20 AM EST Appointment [facility] [address] [place] [address] Cognitive impairment, mild, so stated [G31.84]- Patient has pacemaker, she checked with her ultimate hoops referee and stated her Pacemaker is MRI compatible, please review [facility] Comment on above: Cognitive impairment , mild, so stated [G31.84]- Patient has pacemaker, she checked with her ultimate hoops referee and stated her Pacemaker is MRI compatible, please review Start: 09-23-2024 Annual PCP Team [employer] Department Head jr Disease Visit Annual PCP Team Chronic Disease Visit [facility] Start: 09-23-2024 BP Controlled (<130/80) BP Controlle d (<130/80) [facility] Start: 09-23-2024 Covid-19 Vaccine (#1) Covid-19 Vacci ne (#1) [facility] Comment on above: Postponed from 08/28 (Declined at this time) Start: 09-23-2024 Covid-19 Vaccine ( season) Covid-19 Vaccine () [facility] Comment on above: Postponed from 06/26 (Declined at this time) Start: 09-23-2024 Hepatitis B screening Urine Albumin:Creatinine Ratio [facility] Start: 09-23-2024 Hepatitis B surface antibody level LDL Cholesterol [facility] Start: 09-23-2024 RSV Vaccine (1 - 1-d ose 60+ series) RSV Vaccine (1 - 1-dose 60+ series) [facility] Comment on above: Postponed from 02/25 (Declined at this time) Start: 09-23-2024 RSV Vaccine (1 - 1-d ose 75+ series) RSV Vaccine (1 - 1-dose 75+ series) [facility] Comment on above: Postponed from 02/25 (Declined at this time) Start: 09-22-2024 Hemoglobin A1c measurement HbA1C [facility] Start: 09-21-2024 End: 09-21-2024 Patient encounter procedure 09/21/2024 9:00 AM EST Office Visit Geriatrics [address] [place], [place] [phone] Xochitl Castrejon MD [address] [place], [place] [phone] 6 week follow up Geriatrics Comment on above: 6 week follow up Start: 09-09-2024 End: 09-09-2024 Patient encounter procedure 09/09/2024 11:40 AM EST Office Visit [facility] [place] [address] [place], [place] [phone] Whitney Hammond APRN.DOMINGO [address] [place], [place] [phone] 3 month follow up [facility] [place] Comment on above: 3 month follow up Start: 08-03-2024 End: 11-02-2024 Cobalamin (Vitamin B12) [Mass/volume] in Serum or Plasma VITAMIN B12 Lab Routine Cognitive impairment, mild, so stated Expected: 08/03/2024, Expires: 11/02/2024 [facility] Work Phone: Comment on above: Expected: 08/03/2024 , Expires: 11/02/2024 Start: 08-03-2024 End: 08-03-2024 Patient encounter procedure [facility] [place] Comment on above: Cognitive impairment [R41.89] Start: 06-26-2024 Covid-19 Vaccine () Covid-19 Vaccine () [facility] Start: 06-26-2024 Covid-19 Vaccine () Covid-19 Vaccine () [facility] Start: 06-26-2024 Influenza vaccination [facility] Start: 06-22-2024 ANNUAL PCP TEAM CLAMP FORKLIFT OPERATOR JR DISEASE VISIT ANNUAL PCP TEAM CHRONIC DISEASE VISIT [facility] Start: 06-22-2024 BP CONTROLLED (<130/80) BP CONTROLLE D (<130/80) [facility] Start: 06-22-2024 End: 06-22-2024 Patient encounter procedure [facility] [place] Comment on above: 3 Month follow up 3 Month follow up/eliazar prieto f/u Start: 06-08-2024 End: 06-08-2024 Patient encounter procedure [facility] [place] Comment on above: Cognitive impairment [R41.89] BRIAN Consult Start: 05-12-2024 ANNUAL PCP TEAM CLAMP FORKLIFT OPERATOR JR DISEASE VISIT ANNUAL PCP TEAM CHRONIC DISEASE VISIT [facility] Start: 05-11-2024 End: 05-11-2024 Patient encounter procedure 05/11/2024 2:20 PM EDT Office Visit [facility] [place] [address] [place] [phone] Joon Lopez MD [address] [place] [phone] HOSPITAL FOLLOW UP [facility] [place] Comment on above: HOSPITAL FOLLOW UP Start: 04-24-2024 Influenza vaccination Influenza Vacc ine (#1) [facility] Comment on above: Postponed from 06/26 (Declined at this time) Start: 04-03-2024 ANNUAL PCP TEAM CLAMP FORKLIFT OPERATOR JR DISEASE VISIT ANNUAL PCP TEAM CHRONIC DISEASE VISIT [facility] Start: 03-31-2024 ANNUAL PCP TEAM CLAMP FORKLIFT OPERATOR JR DISEASE VISIT ANNUAL PCP TEAM CHRONIC DISEASE VISIT [facility] Start: 03-31-2024 BP CONTROLLED (<130/80) BP CONTROLLE D (<130/80) [facility] [facility] Start: 03-31-2024 Hepatitis B surface antibody level LDL CHOLESTEROL [facility] Start: 03-23-2024 Hemoglobin A1c measurement HbA1C [facility] Start: 03-23-2024 Hemoglobin A1c/Hemoglobin.total in Blood HbA1C [facility] Start: 03-22-2024 End: 03-22-2024 Patient encounter procedure 03/22/2024 9:00 AM EDT Office Visit Internal Medicine [address] [id number] Whitney Hammond APRN.RADAR ENGINEERING TEACHER [address] [place] [address] 3 Month Follow up [facility] [place] Comment on above: 3 Month Follow up Start: 03-17-2024 BP CONTROLLED (<130/80) BP CONTROLLE D (<130/80) [facility] Start: 01-30-2024 Patient discharge [facility] Start: 01-30-2024 Computed tomography of abdomen and pelvis with intravenous contrast Abdomen/Pelvis W IV Cont ONLY [facility] Start: 01-30-2024 CT Abdomen and Pelvi s W contrast IV [facility] Start: 01-30-2024 Referral to service [facility] Start: 01-30-2024 Consultation [facility] Start: 01-30-2024 Inhalation therapy procedure [facility] Start: 01-29-2024 Ambulation without limitation [facility] Start: 01-29-2024 Assessment of risk o f venous thromboembolism [facility] Start: 01-29-2024 Insertion of cathete r into peripheral vein [facility] Start: 01-29-2024 Measuring intake and output [facility] Start: 01-29-2024 Providing care accor ding to standard [facility] Start: 01-29-2024 Referral to occupati onal therapist [facility] Start: 01-29-2024 Referral to service [facility] Start: 01-29-2024 Following clinical p athway protocol [facility] Start: 01-29-2024 Care regimes management [facility] Start: 01-29-2024 Notification of physician [facility] Start: 01-29-2024 End: 01-29-2024 [facility] Start: 01-29-2024 Verification routine [facility] Start: 01-29-2024 Hospital admission, emergency, from emergency room, medical nature [facility] Start: 01-29-2024 Admission procedure [facility] Start: 01-29-2024 Patient referral to dietitian [facility] Start: 01-22-2024 Anes transurethral w/urethrocystoscopy nos ANESTH BLADDER SURGERY [facility] Start: 01-22-2024 Cysto w/insert urete ral stent CYSTOSCOPY AND TREATMENT [facility] Start: 01-22-2024 Cysto w/urtroscopy w /tx ureteral stricture CYSTO/URETERO STRICTURE TX [facility] Start: 01-22-2024 Cysto/pyeloscopy bx&/fulguration pelivc lesion CYSTOURETERO W/BIOPSY [facility] Start: 01-22-2024 Patient discharge [facility] Start: 01-22-2024 Ambulation without limitation [facility] Start: 01-22-2024 Medical regimen orde rs management [facility] Start: 01-22-2024 Medication education [facility] Start: 01-22-2024 Provision of mobilit y device [facility] Start: 01-22-2024 Taking patient vital signs [facility] Start: 01-22-2024 [facility] Start: 01-05-2024 End: 04-05-2024 Bacteria identified in Urine by Culture URINE CULTURE Microbiology Routine Urinary incontinence without sensory awareness Dysuria Nocturia more than twice per night Urinary urgency Expected: 01/05/2024, Expires: 04/05/2024 [facility] Comment on above: Expected: 01/05/2024 , Expires: 04/05/2024 Start: 01-05-2024 End: 04-05-2024 Urinalysis complete panel - Urine [facility] Comment on above: Ordered: 01/05/2024 Expected: 01/05/2024 , Expires: 04/05/2024 Start: 12-31-2023 Patient discharge [facility] Start: 12-30-2023 Care regimes management [facility] Start: 12-30-2023 Notification of physician [facility] Start: 12-30-2023 Assessment of risk o f venous thromboembolism [facility] Start: 12-30-2023 Incentive spirometry [facility] Start: 12-30-2023 Insertion of cathete r into peripheral vein [facility] Start: 12-30-2023 Providing care accor ding to standard [facility] Start: 12-30-2023 Provision of activit y privileges [facility] Start: 12-30-2023 Fall prevention [facility] Start: 12-30-2023 Introduction of urin nick catheter [facility] Start: 12-30-2023 Oxygen therapy [facility] Start: 12-30-2023 Referral to occupati onal therapist [facility] Start: 12-30-2023 Referral to service [facility] Start: 12-30-2023 Consultation [facility] Start: 12-30-2023 Continuous positive airway pressure ventilation treatment [facility] Start: 12-30-2023 Measuring intake and output [facility] Start: 12-30-2023 End: 12-30-2023 [facility] Start: 12-30-2023 Patient referral to dietitian [facility] Start: 12-29-2023 Following clinical p athway protocol [facility] Start: 12-29-2023 Admission procedure [facility] Start: 12-27-2023 ANNUAL PCP TEAM CLAMP FORKLIFT OPERATOR JR DISEASE VISIT ANNUAL PCP TEAM CHRONIC DISEASE VISIT [facility] Start: 12-27-2023 BP CONTROLLED (<130/80) BP CONTROLLE D (<130/80) [facility] Start: 12-27-2023 Urine microalbumin profile [facility] Comment on above: Postponed from 10/03 (Declined at this time) Start: 12-23-2023 3 comp foot exam completed DIABETIC FOOT EXAM [facility] Comment on above: Postponed from 03/11 (Postponed To Appropriate Date) Start: 12-23-2023 Diabetic foot examination Diabetic F oot Exam [facility] Comment on above: Postponed from 03/11 (Postponed To Appropriate Date) Start: 11-28-2023 [facility] Start: 11-09-2023 [facility] Start: 10-26-2023 Advance Directive Discussion Advance Directive Discussion [facility] Start: 10-26-2023 Behavioral Health Screening Behavioral Health Screening [facility] Start: 10-26-2023 Depression Assessment Depression Ass essment [facility] Start: 10-02-2023 [facility] Start: 09-30-2023 Hemoglobin A1c/Hemoglobin.total in Blood HBA1C [facility] Start: 09-25-2023 BP CONTROLLED (<130/80) BP CONTROLLE D (<130/80) [facility] Start: 09-03-2023 End: 11-03-2023 ALBUMIN/CREAT RATIO RND UR ALBUMIN/CREAT RATIO RND UR Lab Routine Controlled type 2 diabetes mellitus without complication, without long-term current use of insulin (HCC) Expected: 09/03/2023 (Approximate), Expires: 11/03/2023 [facility] Work Phone: Comment on above: Expected: 09/03/2023 (Approximate), Expires: 11/03/2023 Start: 09-03-2023 End: 11-03-2023 CBC panel - Blood by Automated count CBC Lab Routine Primary hypertension Expected: 09/03/2023 (Approximate), Expires: 11/03/2023 [facility] Work Phone: Comment on above: Expected: 09/03/2023 (Approximate), Expires: 11/03/2023 Start: 09-03-2023 End: 11-03-2023 Comprehensive metabolic 2000 panel - Serum or Plasma COMP METABOLIC PANEL Lab Routine Controlled type 2 diabetes mellitus without complication, without long-term current use of insulin (HCC) Primary hypertension Expected: 09/03/2023 (Approximate), Expires: 11/03/2023 [facility] Work Phone: Comment on above: Expected: 09/03/2023 (Approximate), Expires: 11/03/2023 Start: 09-03-2023 End: 11-03-2023 Hemoglobin A1c in Blood HGB A1C Lab Routine Controlled type 2 diabetes mellitus without complication, without long-term current use of insulin (HCC) Expected: 09/03/2023 (Approximate), Expires: 11/03/2023 [facility] Work Phone: Comment on above: Expected: 09/03/2023 (Approximate), Expires: 11/03/2023 Start: 09-03-2023 End: 11-03-2023 Lipid 1996 panel - Serum or Plasma LIPID PANEL BASIC Lab Routine Primary hypertension Mixed hyperlipidemia Expected: 09/03/2023 (Approximate), Expires: 11/03/2023 [facility] Work Phone: Comment on above: Expected: 09/03/2023 (Approximate), Expires: 11/03/2023 Start: 09-01-2023 [facility] Start: 07-01-2023 ANNUAL PCP TEAM CLAMP FORKLIFT OPERATOR JR DISEASE VISIT ANNUAL PCP TEAM CHRONIC DISEASE VISIT [facility] Start: 07-01-2023 COVID-19 VACCINE (#1) COVID-19 VACCI NE (#1) [facility] Comment on above: Postponed from 08/28 (Declined at this time) Start: 06-26-2023 Influenza vaccination [facility] Start: 05-06-2023 ANNUAL PCP TEAM CLAMP FORKLIFT OPERATOR JR DISEASE VISIT ANNUAL PCP TEAM CHRONIC DISEASE VISIT [facility] Start: 04-24-2023 Influenza vaccination INFLUENZA (#1) [facility] Comment on above: Postponed from 06/26 (Declined at this time) Start: 03-31-2023 End: 05-31-2023 Comprehensive metabolic 2000 panel - Serum or Plasma [facility] Work Phone: Comment on above: Expected: 03/31/2023 , Expires: 05/31/2023 Start: 03-31-2023 End: 05-31-2023 Lipid 1996 panel - Serum or Plasma [facility] Work Phone: Comment on above: Expected: 03/31/2023 , Expires: 05/31/2023 Start: 03-25-2023 Adult depression scr eening assessment DEPRESSION SCREENING [facility] Start: 03-25-2023 ANNUAL PCP TEAM CLAMP FORKLIFT OPERATOR JR DISEASE VISIT ANNUAL PCP TEAM CHRONIC DISEASE VISIT [facility] Start: 03-25-2023 BP CONTROLLED (<130/80) BP CONTROLLE D (<130/80) [facility] Start: 03-25-2023 SHINGRIX VACCINE (1 of 2) GIBSON GRIX VACCINE (1 of 2) [facility] Comment on above: Postponed from 02/25 (Declined at this time) Start: 01-27-2023 Glaucoma screening Dilated Retinal E xam [facility] Start: 01-27-2023 Hepatitis C antibody , confirmatory test DILATED RETINAL EXAM [facility] Start: 01-26-2023 End: 03-28-2023 ALBUMIN/CREAT RATIO RND UR ALBUMIN/CREAT RATIO RND UR Lab Routine Controlled type 2 diabetes mellitus without complication, without long-term current use of insulin (HCC) Expected: 01/26/2023 (Approximate), Expires: 03/28/2023 [facility] Work Phone: Comment on above: Expected: 01/26/2023 (Approximate), Expires: 03/28/2023 Start: 01-26-2023 End: 03-28-2023 CBC panel - Blood by Automated count CBC Lab Routine Primary hypertension Expected: 01/26/2023 (Approximate), Expires: 03/28/2023 [facility] Work Phone: Comment on above: Expected: 01/26/2023 (Approximate), Expires: 03/28/2023 Start: 01-26-2023 End: 03-28-2023 Comprehensive metabolic 2000 panel - Serum or Plasma COMP METABOLIC PANEL Lab Routine Controlled type 2 diabetes mellitus without complication, without long-term current use of insulin (HCC) Primary hypertension Expected: 01/26/2023 (Approximate), Expires: 03/28/2023 [facility] Work Phone: Comment on above: Expected: 01/26/2023 (Approximate), Expires: 03/28/2023 Start: 01-26-2023 End: 03-28-2023 Hemoglobin A1c in Blood HGB A1C Lab Routine Controlled type 2 diabetes mellitus without complication, without long-term current use of insulin (HCC) Expected: 01/26/2023 (Approximate), Expires: 03/28/2023 [facility] Work Phone: Comment on above: Expected: 01/26/2023 (Approximate), Expires: 03/28/2023 Start: 01-26-2023 End: 03-28-2023 Lipid 1996 panel - Serum or Plasma LIPID PANEL BASIC Lab Routine Mixed hyperlipidemia Expected: 01/26/2023 (Approximate), Expires: 03/28/2023 [facility] Work Phone: Comment on above: Expected: 01/26/2023 (Approximate), Expires: 03/28/2023 Start: 01-17-2023 ANNUAL PCP TEAM CLAMP FORKLIFT OPERATOR JR DISEASE VISIT ANNUAL PCP TEAM CHRONIC DISEASE VISIT [facility] Start: 01-17-2023 BP CONTROLLED (<130/80) BP CONTROLLE D (<130/80) [facility] Start: 01-17-2023 SPIROMETRY SPIROMETRY [facility] Comment on above: Postponed from 02/25 (Declined at this time) Start: 11-22-2022 Urine microalbumin profile DTA P,TDAP,TD (2 - Td or Tdap) [facility] Comment on above: Postponed from 10/03 (Declined at this time) Start: 10-26-2022 ADVANCE DIRECTIVE DISCUSSION ADVANCE DIRECTIVE DISCUSSION [facility] Start: 10-26-2022 DEPRESSION ASSESSMENT DEPRESSION ASS ESSMENT [facility] Start: 10-16-2022 Hepatitis B screening URINE ALBUMIN:CREATININE RATIO [facility] Start: 10-16-2022 Hepatitis B surface antibody level LDL CHOLESTEROL [facility] Start: 09-24-2022 Hemoglobin A1c/Hemoglobin.total in Blood HBA1C [facility] Start: 09-24-2022 PNEUMOCOCCAL: 65+ (2 - PCV) PNEUMOCOCCAL: 65+ (2 - PCV) [facility] Comment on above: Postponed from 10/01 (Declined at this time) Start: 06-26-2022 Influenza vaccination C [facility] Start: 06-19-2022 [facility] Start: 06-18-2022 Application of intermittent pneumatic compression device [facility] Work Phone: Start: 06-18-2022 Prothrombin time [facility] Work Phone: Start: 06-18-2022 Thyroid stimulating hormone measurement [facility] Work Phone: Start: 06-18-2022 [facility] Work Phone: Start: 06-18-2022 Following clinical p athway protocol [facility] Work Phone: Start: 06-18-2022 Aspiration precautions [facility] Work Phone: Start: 06-18-2022 Assessment of risk o f venous thromboembolism [facility] Work Phone: Start: 06-18-2022 Bacteria identified in Sputum by Culture [facility] Work Phone: Start: 06-18-2022 Cardiac monitoring [facility] Work Phone: Start: 06-18-2022 Care regimes management [facility] Work Phone: Start: 06-18-2022 Catheterization of vein [facility] Work Phone: Start: 06-18-2022 Continuous positive airway pressure ventilation treatment [facility] Work Phone: Start: 06-18-2022 Continuous pulse oximetry [facility] Work Phone: Start: 06-18-2022 Elevation of head of bed [facility] Work Phone: Start: 06-18-2022 Exercises [facility] Work Phone: Start: 06-18-2022 Fall prevention [facility] Work Phone: Start: 06-18-[address] anned interventions [facility] Work Phone: Start: 06-18-2022 Incentive spirometry [facility] Work Phone: Start: 06-18-2022 Inhalation therapy procedure [facility] Work Phone: Start: 06-18-2022 Insertion of cathete r into peripheral vein [facility] Work Phone: Start: 06-18-2022 Introduction of urin nick catheter [facility] Work Phone: Start: 06-18-2022 Measuring intake and output [facility] Work Phone: Start: 06-18-2022 Notification of physician [facility] Work Phone: Start: 06-18-2022 Oxygen therapy [facility] Work Phone: Start: 06-18-2022 Patient referral to dietitian [facility] Work Phone: Start: 06-18-2022 Providing care accor ding to standard [facility] Work Phone: Start: 06-18-2022 Provision of activit y privileges [facility] Work Phone: Start: 06-18-2022 Referral to occupati onal therapist [facility] Work Phone: Start: 06-18-2022 Referral to service [facility] Work Phone: Start: 06-18-2022 Speech therapy assessment [facility] Work Phone: Start: 06-18-2022 Taking nasal swab [facility] Work Phone: Start: 06-18-2022 Tobacco use cessatio n education [facility] Work Phone: Start: 06-18-2022 End: 06-18-2022 [facility] Work Phone: Start: 06-18-2022 Streptococcus pneumo niae antigen assay [facility] Work Phone: Start: 06-18-2022 Admission procedure [facility] Work Phone: Start: 06-18-2022 End: 06-18-2022 [facility] Work Phone: Start: 06-18-2022 End: 06-18-2022 Blood culture [facility] Work Phone: Start: 06-18-2022 Patient referral to dietitian [facility] Work Phone: Start: 06-17-2022 [facility] Work Phone: Start: 06-17-2022 End: 06-17-2022 [facility] Work Phone: Start: 06-16-2022 Plain chest X-ray Chest 1 View (Port able) [facility] Work Phone: Start: 06-16-2022 XR Chest Single view [facility] Work Phone: Start: 04-16-2022 Hemoglobin A1c/Hemoglobin.total in Blood HBA1C [facility] Start: 04-07-2022 COVID-19 VACCINE (#1) COVID-19 VACCI NE (#1) [facility] Comment on above: Postponed from 02/25 (Declined at this time) Start: 04-07-2022 COVID-19 VACCINE (1) COVID-19 VACCIN E (1) [facility] Comment on above: Postponed from 02/25 (Declined at this time) Start: 03-25-2022 End: 05-25-2022 Basic metabolic 2000 panel - Serum or Plasma BASIC METABOLIC PNL Lab Routine Controlled type 2 diabetes mellitus without complication, without long-term current use of insulin (HCC) Expected: 03/25/2022, Expires: 05/25/2022 [facility] Work Phone: Comment on above: Expected: 03/25/2022 , Expires: 05/25/2022 Start: 03-25-2022 End: 05-25-2022 CBC panel - Blood by Automated count CBC Lab Routine Encounter for long-term current use of medication Expected: 03/25/2022, Expires: 05/25/2022 [facility] Work Phone: Comment on above: Expected: 03/25/2022 , Expires: 05/25/2022 Start: 03-11-2022 3 comp foot exam completed DIABETIC FOOT EXAM [facility] Start: 03-11-2022 Adult depression scr eening assessment DEPRESSION SCREENING [facility] Start: 03-11-2022 Diabetic foot examination Diabetic F oot Exam [facility] Start: 03-11-2022 SHINGRIX VACCINE (1 of 2) GIBSON GRIX VACCINE (1 of 2) [facility] Comment on above: Postponed from 02/25 (Declined at this time) Start: 2022 RSV Vaccine (1 - 1-d ose 75+ series) RSV Vaccine (1 - 1-dose 75+ series) [facility] Start: 10-26-2021 DEPRESSION ASSESSMENT DEPRESSION ASS ESSMENT [facility] Start: 10-03-2021 Urine microalbumin profile [facility] Start: 08-04-2019 COLORECTAL CANCER SCREENING COLORECTAL CANCER SCREENING [facility] Start: 08-04-2019 FECAL OCCULT BLOOD FECAL OCCULT BLOO D [facility] Start: 02-15-2018 End: 02-15-2018 Appointment Appointment [facility] Work Phone: Start: 01-26-2018 End: 07-30-2017 *Hepatic Function Panel *Hepatic Function Panel [facility] Work Phone: Start: 01-26-2018 End: 07-30-2017 Lipid panel [AGGREGATE] *Lipid Profile CC PCP [facility] Work Phone: Start: 11-03-2017 End: 11-03-2017 Appointment [facility] Work Phone: Start: 10-12-2017 End: 05-11-2017 Echo tthrc r-t 2d w/wom-mode compl spec&colr d Echo Complete with Color Flow [facility] Work Phone: Start: 08-10-2017 End: 08-10-2017 Urine culture, bacteria Urine Culture [facility] Work Phone: Start: 07-27-2017 End: 07-27-2017 AVELINO YOU [facility] Work Phone: Start: 07-27-2017 End: 07-27-2017 Follow Up Appt 6 months Follow Up Appt 6 months [facility] Work Phone: Start: 07-27-2017 End: 07-27-2017 Follow Up BP Check Follow Up BP Check [facility] Work Phone: Start: 07-20-2017 End: 07-27-2017 *Hepatic Function Panel *Hepatic Function Panel [facility] Work Phone: Start: 07-20-2017 End: 07-27-2017 Lipid panel [AGGREGATE] *Lipid Profile CC PCP [facility] [employer] [facility] Work Phone: Start: 05-11-2017 End: 05-11-2017 DMB DMB [facility] [employer] [facility] Work Phone: Start: 05-11-2017 End: 05-11-2017 Follow Up Appt 6 months Follow Up Appt 6 months [facility] Work Phone: Start: 05-01-2017 End: 05-05-2017 INR Coag RelTime (PPP) *PT/INR - Standing Order [facility] [employer] Work Phone: Start: 03-12-2017 End: 03-12-2017 CSM CSM [facility] [employer] Work Phone: Start: 03-12-2017 End: 03-12-2017 Follow Up Appt 2 months Follow Up Appt 2 months [facility] Work Phone: Start: 03-12-2017 End: 03-12-2017 Pulmonary Function Test - complete Pulmonary Function Test - complete [facility] [employer] Work Phone: Start: 02-04-2017 End: 02-04-2017 Ecg routine ecg w/least 12 lds w/i&r EKG (In office) [facility] [employer] [facility] Work Phone: Start: 01-30-2017 End: 01-19-2017 *Hepatic Function Panel *Hepatic Function Panel [facility] [employer] [facility] Work Phone: Start: 01-30-2017 End: 01-19-2017 Lipid panel [AGGREGATE] *Lipid Profile CC PCP [facility] [employer] Work Phone: Start: 01-26-2017 End: 01-19-2017 *BMP *BMP [facility] [employer] Work Phone: Start: 01-12-2017 End: 01-12-2017 Cardioversion Cardioversion [facility] Work Phone: Start: 01-12-2017 End: 07-16-2017 DJN DJN [facility] Work Phone: Start: 01-12-2017 End: 07-16-2017 Follow Up Appt 6 months Follow Up Appt 6 months [facility] Work Phone: Start: 01-05-2017 End: 01-16-2017 Complete sleep workup (PSG,CPAP as indicated) & Follow up Complete sleep workup (PSG,CPAP as indicated) & Follow up [facility] Work Phone: Start: 01-05-2017 End: 01-16-2017 DMB DMB [facility] Work Phone: Start: 01-05-2017 End: 01-16-2017 Follow Up Appt 2 months Follow Up Appt 2 months [facility] Work Phone: Start: 01-05-2017 End: 01-16-2017 Pulmonary Function Test - complete Pulmonary Function Test - complete [facility] Work Phone: Start: 01-05-2017 End: 01-16-2017 Pulmonary stress test/simple Pulmonary stress testing; simple (eg, 6-minute walk) [facility] Work Phone: Start: 10-01-2013 Pneumococcal Vaccine : 50+ (2 of 2 - PCV) Pneumococcal Vaccine: 50+ (2 of 2 - PCV) [facility] Start: 10-01-2013 Pneumococcal Vaccine : 65+ (2 - PCV) Pneumococcal Vaccine: 65+ (2 - PCV) [facility] Start: 10-01-2013 Pneumococcal Vaccine : 65+ (2 of 2 - PCV) Pneumococcal Vaccine: 65+ (2 of 2 - PCV) [facility] Start: 10-01-2013 PNEUMOCOCCAL: 65+ (2 - PCV) PNEUMOCOCCAL: 65+ (2 - PCV) [facility] Start: 2007 Hepatitis B Vaccine (1 of 3 - Risk 3-dose series) Hepatitis B Vaccine (1 of 3 - Risk 3-dose series) [facility] Start: 2007 RSV Vaccine (1 - 1-d ose 60+ series) RSV Vaccine (1 - 1-dose 60+ series) [facility] Start: 1997 SHINGRIX VACCINE (1 of 2) GIBSON GRIX VACCINE (1 of 2) [facility] Start: 02-26-1992 COLOGUARD (FIT-DNA) COLOGUARD (FIT-D NA) [facility] Start: 02-26-1992 Colonoscopy COLONOSCOPY [facility] Start: 02-26-[address] COLONOGRAPHY [facility] Start: 02-26-1992 SIG[facility] Start: [facility] Anxiety Screening Anxiety Screening [facility] Start: 1965 BP CONTROLLED (<130/80) BP CONTROLLE D (<130/80) [facility] Start: 1965 Depression Screening Depression Scre ening [facility] Start: 1965 SPIROMETRY SPIROMETRY [facility] Start: 02-26-1952 COVID-19 VACCINE (#1) COVID-19 VACCI NE (#1) [facility] Start: 1945 COVID-19 VACCINE (#1) COVID-19 VACCI NE (#1) [facility] Alanine aminotransfe rase [Enzymatic activity/volume] in Serum or Plasma [facility] Work Phone: Albumin [Mass/volume ] in Serum or Plasma [facility] Work Phone: Alkaline phosphatase [Enzymatic activity/volume] in Serum or Plasma [facility] Work Phone: Anion gap measurement [facility] Work Phone: Aspartate aminotrans ferase [Enzymatic activity/volume] in Serum or Plasma [facility] Work Phone: Bacteria identified in Blood by Culture Blood Culture [facility] Work Phone: Bacteria identified in Urine by Culture Urine Culture [facility] Work Phone: Bacteria identified in Urine by Culture URINE CULTURE Microbiology Routine Hallucinations, unspecified Generalized weakness Ordered: 06/01/2024 [facility] Work Phone: Comment on above: Ordered: 06/01/2024 Bacteria identified in Urine by Culture URINE CULTURE Microbiology Routine Dysuria Ordered: 09/08/2024 [facility] Work Phone: Comment on above: Ordered: 09/08/2024 Bacteria identified in Urine by Culture BACTERIAL CULTURE, URINE Microbiology Routine Dysuria Ordered: 01/05/2025 [facility] Work Phone: Comment on above: Ordered: 01/05/2025 Bacteria identified in Urine by Culture BACTERIAL CULTURE, URINE Microbiology Routine Urinary tract infection with hematuria, site unspecified Ordered: 02/07/2025 [facility] Work Phone: Comment on above: Ordered: 02/07/2025 End: 04-16-2025 BD DXA TRABECULAR BONE SCORE (TBS) BD DXA TRABECULAR BONE SCORE (TBS) Radiology Routine Asymptomatic postmenopausal state Screening for osteoporosis Closed fracture of elbow, unspecified laterality, sequela 1 Occurrences starting 03/18/2024 until 04/16/2025 [facility] Comment on above: 1 Occurrences starti ng 03/18/2024 until 04/16/2025 Bilirubin, total measurement [facility] Work Phone: Blood culture [facility] Work Phone: BUN/Creatinine ratio [facility] Work Phone: Calcium [Mass/volume ] in Serum or Plasma [facility] Work Phone: Carbon dioxide, tota l [Moles/volume] in Serum or Plasma [facility] Work Phone: Chloride [Moles/volu me] in Serum or Plasma [facility] Work Phone: Cholesterol [Mass/vo lume] in Serum or Plasma [facility] Work Phone: Cholesterol in HDL [Mass/volume] in Serum or Plasma [facility] Work Phone: Cholesterol in LDL [Mass/volume] in Serum or Plasma [facility] Work Phone: Creatinine [Moles/vo lume] in Serum or Plasma [facility] Work Phone: End: 04-16-2025 DXA Skeletal system.axial Views for bone density DXA-AXIAL SKELETON Radiology Routine Asymptomatic postmenopausal state Screening for osteoporosis Closed fracture of elbow, unspecified laterality, sequela 1 Occurrences starting 03/18/2024 until 04/16/2025 [facility] Work Phone: Comment on above: 1 Occurrences starti ng 03/18/2024 until 04/16/2025 Exercise tolerance test [facility] Glucose [Mass/volume ] in Serum or Plasma [facility] Work Phone: Hematocrit [Volume Fraction] of Blood [facility] Work Phone: Hemoglobin [Mass/vol ume] in Blood [facility] Work Phone: Hemoglobin A1c/Hemoglobin.total in Blood [facility] Work Phone: Hemoglobin.gastroint estina l.lower [Presence] in Stool by Immunoassay FECAL OCCULT BLOOD TEST Lab Routine Colon cancer screening Ordered: 12/26/2022 [facility] Work Phone: Comment on above: Ordered: 12/26/2022 Hzv zoster vacc recombinant adjuvanted im njx ZOSTER VACCINE, RECOMBINANT (SHINGRIX) Immunization/Injection Routine Encounter for immunization 1 Occurrences starting 04/16/2023 [facility] Work Phone: Comment on above: 1 Occurrences starti ng 04/16/2023 INR in Blood by Coagulation assay [facility] Work Phone: Legionella pneumophi la Ag [Presence] in Urine [facility] Work Phone: Leukocytes [#/volume ] in Blood [facility] Work Phone: Magnesium [Mass/volu me] in Serum or Plasma [facility] Mean corpuscular hemoglobin concentration determination [facility] Work Phone: Mean corpuscular hemoglobin determination [facility] Work Phone: Measurement of renal function [facility] Work Phone: End: 09-02-2025 MR Brain WO contrast MRI BRAIN W QUANT WO IVCON Radiology Routine Cognitive impairment, mild, so stated 1 Occurrences starting 08/03/2024 until 09/02/2025 [facility] Comment on above: 1 Occurrences starti ng 08/03/2024 until 09/02/2025 End: 09-02-2025 MR Unspecified body region 3D post processing MRI 3D POST PROCESSING Radiology Routine Cognitive impairment, mild, so stated 1 Occurrences starting 08/03/2024 until 09/02/2025 [facility] Comment on above: 1 Occurrences starti ng 08/03/2024 until 09/02/2025 MR Unspecified body region 3D post processing MRI 3D POST PROCESSING Radiology Routine Cognitive impairment, mild, so stated 09/28/2024 10:56 AM EST [facility] Work Phone: Neutrophil count [facility] Work Phone: Neutrophil percent differential count [facility] Work Phone: Patient Education [facility] Work Phone: Patient referral [facility] Work Phone: Platelets [#/volume] in Blood [facility] Work Phone: Potassium [Moles/vol ume] in Serum or Plasma [facility] Work Phone: Prothrombin time [facility] Work Phone: Red blood cell count [facility] Work Phone: Red cell distributio n width determination [facility] Work Phone: Sodium [Moles/volume ] in Serum or Plasma [facility] Work Phone: End: 05-15-2024 SPIROMETRY - BASELINE AND POST DILATOR SPIROMETRY - BASELINE AND POST DILATOR PFT Routine Mild intermittent asthma without complication 1 Occurrences starting 04/16/2023 until 05/15/2024 [facility] Work Phone: Comment on above: 1 Occurrences starti ng 04/16/2023 until 05/15/2024 Streptococcus pneumo niae antigen assay [facility] Work Phone: Thyroid stimulating hormone measurement [facility] Work Phone: Total protein measurement [facility] Work Phone: Triglycerides measurement [facility] Work Phone: UA DIP, URINE (POC) UA DIP, URIN E (POC) Lab Routine Urinary incontinence without sensory awareness Dysuria Nocturia more than twice per night Urinary urgency Ordered: 01/05/2024 [facility] Work Phone: Comment on above: Ordered: 01/05/2024 Urea nitrogen [Mass/volume] in Serum or Plasma [facility] Work Phone: VLDL cholesterol measurement [facility] Work Phone: End: 04-12-2026 XR Knee - right 4 Views XR KNEE GENERAL 4V AP BOTH/PA BOTH/LAT/MERC RIGHT Radiology Routine Chronic pain of left knee Chronic pain of right knee 1 Occurrences starting 03/13/2025 until 04/12/2026 [facility] Comment on above: 1 Occurrences starti ng 03/13/2025 until 04/12/2026 XR Knee - right 4 Views XR KNEE GENERAL 4V AP BOTH/PA BOTH/LAT/MERC RIGHT Radiology Routine Chronic pain of left knee Chronic pain of right knee 03/13/2025 8:59 AM EDT [facility] Immunizations Immunization Date Immunization Notes Care Provider [facility] 08-19-2019 influenza virus vacc ine, unspecified formulation Joon Lopez MD Work Phone: [facility] 10-01-2012 pneumococcal polysaccharide vaccine, 23 valent Joon Lopez MD Work Phone: [facility] 10-03-2011 tetanus toxoid, redu fe diphtheria toxoid, and acellular pertussis vaccine, adsorbed Joon Lopez MD Work Phone: [facility] Payers Date Payer Category Payer Self-pay [id number] 2021 Medicare [employer]IC[employer] THP [employer]ARE [facility] [id number] 2021-Present [phone] [place] [id number] [facility] [id number] 2021 Medicare [employer] MEDICARE THP SECURECARE MDCR O [id number] 2021-Present [phone] [place] [address] [id number] 2021 Medicare (Managed Care) [facility] SECU RECARE [facility] [id number] 2016 Medicare [id number] 1945 Unknown [id number] 2.0.1.123306.3.579 .2.627 Unknown [id number] .0.1.788882.3.579 .2.462 Unknown [id number] 2.0.1.337739.3.579 .2.462 Unknown [id number] .840.1.258256.3.579 .2.462 Unknown [id number] 2.840.1.468233.3.579 .2.462 Unknown [id number] 2.840.1.376891.3.579 .2.462 Unknown [id number] 2.840.1.109297.3.579 .2.462 Unknown [id number] 2.840.1.003010.3.579 .2.462 Unknown [id number] 2.16.840.1.924367.3.579 .2.462 Unknown [id number] 2.16.840.1.029856.3.579 .2.462 Unknown [id number] 2.16.840.1.015745.3.579 .2.462 Unknown [id number] 2.16840.1.017116.3.579 .2.462 Unknown [id number] 2.840.1.766527.3.579 .2.462 Unknown [id number] 2.840.1.173261.3.579 .2.462 Unknown [id number] 2.840.1.639793.3.579 .2.462 Unknown [id number] 2.840.1.098173.3.579 .2.462 Unknown [id number] 2.840.1.893931.3.579 .2.462 Unknown [id number] 2.840.1.150998.3.579 .2.462 Unknown [id number] 2.840.1.690804.3.579 .2.462 Unknown [id number] 2.840.1.082413.3.579 .2.462 Unknown [id number] 2.840.1.103685.3.579 .2.462 Unknown [id number] 2.840.1.438429.3.579 .2.462 Unknown [id number] 2.840.1.602589.3.579 .2.462 Unknown [id number] 2.840.1.795880.3.579 .2.462 Unknown [id number] 2.840.1.296890.3.579 .2.462 Unknown [id number] 2.840.1.198791.3.579 .2.462 Unknown [id number] 2.840.1.357893.3.579 .2.462 Unknown [id number] 2.16.840.1.387401.3.579 .2.462 Unknown [id number] 2.16.840.1.018460.3.579 .2.462 Unknown [id number] 2.16.840.1.725924.3.579 .2.462 Unknown [id number] 2.16840.1.930090.3.579 .2.462 Unknown [id number] 2.16840.1.909115.3.579 .2.462 Unknown [id number] 2.16840.1.978078.3.579 .2.462 Unknown [id number] 2.16840.1.614278.3.579 .2.462 Unknown [id number] 2.840.1.819575.3.579 .2.462 Unknown [id number] 2.840.1.358746.3.579 .2.462 Unknown [id number] 2.840.1.128051.3.579 .2.462 Unknown [id number] 2.840.1.050210.3.579 .2.462 Unknown [id number] 2.16840.1.421606.3.579 .2.462 Unknown [id number] 2.840.1.603447.3.579 .2.462 Unknown [id number] 2.840.1.420309.3.579 .2.462 Unknown [id number] 2.840.1.048148.3.579 .2.462 Unknown [id number] 2.840.1.859978.3.579 .2.462 Unknown [id number] 2.840.1.413003.3.579 .2.462 Social History Date Type Detail Facility Start: 10-14-2021 End: 01-29-2024 Tobacco smoking status AKIS Unknown if ever smoked [facility] Start: 03-13-2020 None [facility] Start: 03-13-2020 Alone [facility] Start: 07-16-2020 Non-smoker [facility] Start: 1945 Sex Assigned At Female W [facility] Start: 02-02-2018 End: 01-04-2025 Tobacco smoking status NHIS Never smoked tobacco [facility] Start: 11-01-2021 End: 03-13-2025 Alcohol intake Current non-drinker of alcohol (finding) [facility] Start: 1945 Sex Assigned At Not on file C [facility] Start: 01-07-2022 End: 07-01-2022 Exposure to SARS-CoV-2 (event) Not sure [facility] Start: 02-02-2018 End: 07-01-2022 Tobacco use and exposure Smokeless tobacco non-user [facility] Start: 03-31-2023 End: 04-16-2023 History of Social function [facility] Work Phone: Start: 03-31-2023 End: 04-16-2023 Tobacco use panel [facility] Work Phone: Adult Depression Screening Assessment 0 [facility] Work Phone: Tobacco smoking status No Smokin g Status Entered [facility] Start: 08-03-2024 Education 11 [facility] Start: 01-04-2025 End: 01-23-2025 Sex Female (finding) [facility] NEGATED: Highlighted row [facility] Medical Equipment Procedure Code Equipment Code Equipment Origin al Text Equipment Identifier Dates Cystoureteroscopy , with stent insertion Polymeric ureteral stent [id number] FDA Start: 01-22-2024 Cystoscopy, with retrograde pyelogram and ureteral stent insertion ([id number] Polymeric ureteral stent [id number] FDA Start: 12-30-[address] MRI SURE SCAN PACEMAKER FDA Start: 04-01-2019 MEDTRONIC KEEGAN STARKS MRI SURE SCAN PACEMAKER FDA Start: 04-01-[address] MRI SURE SCAN PACEMAKER FDA Start: 04-01-2019 [id number] Start: 10-02-2015 End: 06-22-2023 Comment on above: Test glucose 1 x per day. Dx: 250.00. Insulin use: no Test blood sugar(s) 1 times daily. Dx: Type 2 DM - Controlled E11.9 Insulin: No MEDTRONIC ADVISA MRI SURE SCAN PACEMAKER FDA Start: 04-01-[address] MRI SURE SCAN PACEMAKER FDA Start: 04-01-[address] MRI SURE SCAN PACEMAKER FDA Start: 04-01-[address] MRI SURE SCAN PACEMAKER FDA Start: 04-01-[address] MRI SURE SCAN PACEMAKER FDA Start: 04-01-[address] MRI SURE SCAN PACEMAKER FDA Start: 04-01-[address] MRI SURE SCAN PACEMAKER FDA Start: 04-01-[address] MRI SURE SCAN PACEMAKER FDA Start: 04-01-[address] MRI SURE SCAN PACEMAKER FDA Start: 04-01-[address] MRI SURE SCAN PACEMAKER FDA Start: 04-01-[address] MRI SURE SCAN PACEMAKER FDA Start: 04-01-[address] MRI SURE SCAN PACEMAKER FDA Start: 04-01-[address] MRI SURE SCAN PACEMAKER FDA Start: 04-01-[address] MRI SURE SCAN PACEMAKER FDA Start: 04-01-[address] MRI SURE SCAN PACEMAKER FDA Start: 04-01-[address] MRI SURE SCAN PACEMAKER FDA Start: 04-01-[address] MRI SURE SCAN PACEMAKER FDA Start: 04-01-[address] MRI SURE SCAN PACEMAKER FDA Start: 04-01-[address] MRI SURE SCAN PACEMAKER FDA Start: 04-01-[address] MRI SURE SCAN PACEMAKER FDA Start: 04-01-[address] MRI SURE SCAN PACEMAKER FDA Start: 04-01-[address] MRI SURE SCAN PACEMAKER FDA Start: 04-01-[address] MRI SURE SCAN PACEMAKER FDA Start: 04-01-2019 MEDTRONIC ADVISA MRI SURE SCAN PACEMAKER FDA Start: 04-01-[address] MRI SURE SCAN PACEMAKER FDA Start: 04-01-[address] MRI SURE SCAN PACEMAKER FDA Start: 04-01-[address] MRI SURE SCAN PACEMAKER FDA Start: 04-01-[address] MRI SURE SCAN PACEMAKER FDA Start: 04-01-[address] MRI SURE SCAN PACEMAKER FDA Start: 04-01-[address] MRI SURE SCAN PACEMAKER FDA Start: 04-01-[address] MRI SURE SCAN PACEMAKER FDA Start: 04-01-[address] MRI SURE SCAN PACEMAKER FDA Start: 04-01-[address] MRI SURE SCAN PACEMAKER FDA Start: 04-01-[address] MRI SURE SCAN PACEMAKER FDA Start: 04-01-[address] MRI SURE SCAN PACEMAKER FDA Start: 04-01-[address] MRI SURE SCAN PACEMAKER FDA Start: 04-01-[address] MRI SURE SCAN PACEMAKER FDA Start: 04-01-[address] MRI SURE SCAN PACEMAKER FDA Start: 04-01-[address] MRI SURE SCAN PACEMAKER FDA Start: 04-01-[address] MRI SURE SCAN PACEMAKER FDA Start: 04-01-[address] MRI SURE SCAN PACEMAKER FDA Start: 04-01-[address] MRI SURE SCAN PACEMAKER FDA Start: 04-01-[address] MRI SURE SCAN PACEMAKER FDA Start: 04-01-[address] MRI SURE SCAN PACEMAKER FDA Start: 04-01-[address] MRI SURE SCAN PACEMAKER FDA Start: 04-01-[address] MRI SURE SCAN PACEMAKER FDA Start: 04-01-[address] MRI SURE SCAN PACEMAKER FDA Start: 04-01-[address] MRI SURE SCAN PACEMAKER FDA Start: 04-01-[address] MRI SURE SCAN PACEMAKER FDA Start: 04-01-[address] MRI SURE SCAN PACEMAKER FDA Start: 04-01-[address] MRI SURE SCAN PACEMAKER FDA Start: 04-01-[address] MRI SURE SCAN PACEMAKER FDA Start: 04-01-[address] MRI SURE SCAN PACEMAKER FDA Start: 04-01-[address] MRI SURE SCAN PACEMAKER FDA Start: 04-01-[address] MRI SURE SCAN PACEMAKER FDA Start: 04-01-[address] MRI SURE SCAN PACEMAKER FDA Start: 04-01-[address] MRI SURE SCAN PACEMAKER FDA Start: 04-01-[address] MRI SURE SCAN PACEMAKER FDA Start: 04-01-[address] MRI SURE SCAN PACEMAKER FDA Start: 04-01-[address] MRI SURE SCAN PACEMAKER FDA Start: 04-01-[address] MRI SURE SCAN PACEMAKER FDA Start: 04-01-[address] MRI SURE SCAN PACEMAKER FDA Start: 04-01-[address] MRI SURE SCAN PACEMAKER FDA Start: 04-01-[address] MRI SURE SCAN PACEMAKER FDA Start: 04-01-[address] MRI SURE SCAN PACEMAKER FDA Start: 04-01-[address] MRI SURE SCAN PACEMAKER FDA Start: 04-01-[address] MRI SURE SCAN PACEMAKER FDA Start: 04-01-[address] MRI SURE SCAN PACEMAKER FDA Start: 04-01-[address] MRI SURE SCAN PACEMAKER FDA Start: 04-01-[address] MRI SURE SCAN PACEMAKER FDA Start: 04-01-[address] MRI SURE SCAN PACEMAKER FDA Start: 04-01-[address] MRI SURE SCAN PACEMAKER FDA Start: 04-01-[address] MRI SURE SCAN PACEMAKER FDA Start: 04-01-[address] MRI SURE SCAN PACEMAKER FDA Start: 04-01-[address] MRI SURE SCAN PACEMAKER FDA Start: 04-01-[address] MRI SURE SCAN PACEMAKER FDA Start: 04-01-[address] MRI SURE SCAN PACEMAKER FDA Start: 04-01-[address] MRI SURE SCAN PACEMAKER FDA Start: 04-01-[address] MRI SURE SCAN PACEMAKER FDA Start: 04-01-[address] MRI SURE SCAN PACEMAKER FDA Start: 04-01-[address] MRI SURE SCAN PACEMAKER FDA Start: 04-01-[address] MRI SURE SCAN PACEMAKER FDA Start: 04-01-[address] MRI SURE SCAN PACEMAKER FDA Start: 04-01-[address] MRI SURE SCAN PACEMAKER FDA Start: 04-01-2019 SANDROTRONIC KEEGAN STARKS MRI SURE SCAN PACEMAKER FDA Start: 04-01-[address] MRI SURE SCAN PACEMAKER FDA Start: 04-01-2019 SANDROTRONIC KEEGAN STARKS MRI SURE SCAN PACEMAKER FDA Start: 04-01-2019 MEDTRONIC KEEGAN STARKS MRI SURE SCAN PACEMAKER FDA Start: 04-01-[address] MRI SURE SCAN PACEMAKER FDA Start: 04-01-2019 MEDTRONIC KEEGAN STARKS MRI SURE SCAN PACEMAKER FDA Start: 04-01-2019 Pacemaker Advisa-04/01/2019 [id number] Start: 04-01-2019 Comment on above: Description: Pacer D ual Mri Advisa Chamber - [id number] Implanted: Qty: 1 on 04/01/2019 by Rodney Freed MD at [facility] Pacemaker Left: Chest MEDTRONIC PACER [id number] 05/22/2020 [id number] / [id number] Medical Devices Implanted Type Area Conveyor Feeder Device Identifier Shelf Expiration Date Model / Serial / Lot Lead Pace Standard Mdt 5076 - [id number] Implanted: Qty: 1 on 04/01/2019 by Rodney Freed MD at [facility] Lead N/A: Heart MEDTRONIC PACER [id number] 01/28/2021 5076-45 / [id number] / Lead Pace His Bundle Df1 69cm - [id number] Implanted: Qty: 1 on 04/01/2019 by Rodney Freed MD at [facility] Lead N/A: Heart MEDTRONIC PACER [id number] 12/24/2020 [id number] / [id number] / MEDTRONIC ADVISA MRI SURE SCAN PACEMAKER FDA Start: 04-01-2019 SANDROTRONIC KEEGAN STARKS MRI SURE SCAN PACEMAKER FDA Start: 04-01-2019 SANDROTRONIC KEEGAN STARKS MRI SURE SCAN PACEMAKER FDA Start: 04-01-2019 ([id number]) Dual-chamber implantable pacemaker, rate-responsive [id number] FDA Start: 07-04-[address] MRI SURE SCAN PACEMAKER FDA Start: 04-01-2019 SANDROTRONIC KEEGAN STARKS MRI SURE SCAN PACEMAKER FDA Start: 04-01-[address] MRI SURE SCAN PACEMAKER FDA Start: 04-01-[address] MRI SURE SCAN PACEMAKER FDA Start: 04-01-[address] MRI SURE SCAN PACEMAKER FDA Start: 04-01-2019 SANDROTRONIC KEEGAN STARKS MRI SURE SCAN PACEMAKER FDA Start: 04-01-2019 Goals Date Patient Goal Desired Activity /State Functional Status Date Assessment Result Facility 01-30-2024 Functional status Ambulates [facility] Work Phone: 01-28-2024 Functional Status Independent [facility] 01-28-2024 Functional Status Standard Safet y ID band on, Allergy Band on, Call device within reach, Bed in low position, Wheels locked, personal items within reach, Visitor at bedside, Safety level maintained [facility] 12-31-2023 Functional status Ambulates;Bath room Privilege [facility] Work Phone: 06-19-2022 Functional status Ambulates [facility] Work Phone: 06-18-2022 Functional status Tolerates Activity Well [facility] Work Phone: 05-03-2015 Are you deaf, or do you have serious difficulty hearing No 05/03/2015 9:38 AM Guerline Philip LPN No [facility] 05-03-2015 Are you blind, or do you have serious difficulty seeing, even when wearing glasses No 05/03/2015 9:38 AM Guerline Philip LPN No [facility] 05-03-2015 Do you have serious difficulty walking or climbing stairs No 05/03/2015 9:38 AM Guerline Philip LPN No [facility] 05-03-2015 Do you have difficul ty dressing or bathing No 05/03/2015 9:38 AM Guerline Philip LPN No [facility] 05-03-2015 Because of a physica l, mental, or emotional condition, do you have difficulty doing errands alone such as visiting a physician's office or shopping No 05/03/2015 9:38 AM Guerline Philip LPN No [facility] Mental Status Date Assessment Result Facility 01-30-2024 Cognitive function Voice/Name [facility] Work Phone: 01-29-2024 Cognitive function Awake;Alert;A ppropriate;Fol lows Commands [facility] Work Phone: 01-28-2024 Mental Status Oriented x 4 [facility] 01-28-[address] [facility] 01-22-2024 Cognitive function Level Of Cons ciousness Follows Commands;Lethargic [facility] Work Phone: 01-22-2024 Cognitive function Patient Orironnie roy Person;Place;Time [facility] Work Phone: 12-31-2023 Cognitive function Voice/Name [facility] Work Phone: 10-01-2023 Cognitive function Level Of Cons ciousness Awake;Alert;Appropriate;Fol lows Commands [facility] Work Phone: 05-09-2023 Cognitive function Level Of Cons ciousness Awake;Alert;Appropriate;Fol lows Commands [facility] Work Phone: 03-17-2023 Cognitive function Level Of Cons ciousness Awake;Alert;Appropriate [facility] Work Phone: 06-18-2022 Cognitive function Voice/Name [facility] Work Phone: 06-17-2022 Cognitive function Voice/Name [facility] Work Phone: 06-17-2022 Cognitive function Voice/Name [facility] Work Phone: 06-16-2022 Cognitive function Appropriate [facility] Work Phone: 05-03-2015 Because of a physica l, mental, or emotional condition, do you have serious difficulty concentrating, remembering, or making decisions No 05/03/2015 9:38 AM Guerline Philip BOONE No [facility] Clinical Notes 09-29-2005 to 03-13-2025 Elsie Head RT(R) - 03/13/2025 8:20 AM EDTCWhitney wilson APRN.RADAR ENGINEERING TEACHER - 03/13/2025 7:49 AM EDTTelephone Encounter - Carolina KuoBOONE - 02/22/2025 3:28 PM EDTPatient Instructions Note Date & Type Note Facility 03-13-2025 History of Presen t illness Narrative Radiology Service Progress Note PATIENT NAME: Keisha Red DATE OF SERVICE: March 13, 2025 TIME: 8:57 AM PATIENT IDENTITY VERIFICATION COMPLETED USING TWO (2) IDENTIFIERS: Name and Date of confirmed by patient verbally. FALL SCREENING: Has the patient had 2 falls in the last year or 1 fall with injury or currently using an Ambulatory Assistive Device (Walker, Cane, Wheelchair, Crutches, etc.)? Yes, Patient High Risk for Falls What interventions were put in place to prevent falls during this visit? Offered Assistance with Transfers/Clothing, Instructed Patient to Remain Seated (Not on Exam Table) Until Exam, and Increased Observations by Caregivers PATIENT GENDER DATA: Assigned female at . status: : No status: NO. PATIENT RELEVANT IMPLANT DATA REVIEWED: Yes PATIENT PRESENTS WITH AN IMPLANTABLE OR ATTACHED MANAGER DATA WAREHOUSE: No RADIOLOGY DEPARTMENT: General X-ray: Exam(s) Completed: Lower Extremity X-Ray(s): Knee, AP / Lat / Tunne / Merchant Right PERIPHERAL IV DATA: Not applicable SIGNED BY: RT Anahi(R) March 13, 2025 8:57 AM documented in this encounter [facility] 03-13-2025 Note HNO ID: [id number] Author: ELSIE HEAD RT(R) Service: ? Author Type: Downstream Biomanufacturing Technician Type: Progress Notes Filed: 03/13/2025 08:58 Note Text: Radiology Service Progress Note PATIENT NAME: Keisha Red DATE OF SERVICE: March 13, 2025 TIME: 8:57 AM PATIENT IDENTITY VERIFICATION COMPLETED USING TWO (2) IDENTIFIERS: Name and Date of confirmed by patient verbally. FALL SCREENING: Has the patient had 2 falls in the last year or 1 fall with injury or currently using an Ambulatory Assistive Device (Walker, Cane, Wheelchair, Crutches, etc.)? Yes, Patient High Risk for Falls What interventions were put in place to prevent falls during this visit? Offered Assistance with Transfers/Clothing, Instructed Patient to Remain Seated (Not on Exam Table) Until Exam, and Increased Observations by Caregivers PATIENT GENDER DATA: Assigned female at . status: : No status: NO. PATIENT RELEVANT IMPLANT DATA REVIEWED: Yes PATIENT PRESENTS WITH AN IMPLANTABLE OR ATTACHED MANAGER DATA WAREHOUSE: No RADIOLOGY DEPARTMENT: General X-ray: Exam(s) Completed: Lower Extremity X-Ray(s): Knee, AP / Lat / Tunne / Merchant Right PERIPHERAL IV DATA: Not applicable SIGNED BY: RT Anahi(R) March 13, 2025 8:57 AM [facility] 03-13-2025 Note HNO ID: [id number] Author: WHITNEY HAMMOND APRN.[facility] Service: ? Author Type: Nurse Practitioner Type: Progress Notes Filed: 03/13/2025 08:45 Note Text: SUBJECTIVE Keisha Red is a 80 year old female here today for a check up on her medical problems. Chief Complaint Patient presents with: F/U 3 Month: pain in knees no recent x-ray HPI Keisha is a 80-year-old female with a history of recurrent UTIs, presenting for a 3-month follow-up. She is accompanied by her daughter, who is providing additional history. Keisha reports recurrent UTIs, for which she has been visiting urgent care. She mentions a recommendation to start a prophylactic antibiotic regimen due to the frequency of infections. She denies dehydration and states she drinks 4 bottles of water daily, using flavored packets to enhance the taste. A urine culture in December showed E. coli, and a follow-up culture in January confirmed the infection was cleared with Macrobid. She also reports right knee pain, exacerbated by climbing stairs, and notes that her hip pain may be related to her knee issues. 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 She has been using ear wipes to manage the crusting. She has a pacemaker and is under the care of Dr. Castrejon for memory issues. She recently had a brain scan in [place]. Her most recent A1c in November was 5.9. She has not visited the eye doctor recently but received a message to schedule an appointment. She reports occasional diplopia. She denies any chest pain, chest tightness or shortness of breath. Daughter helps prepare her medications and ensures adherence. Her medications were reviewed today and her list is now up to date. Medications Current Outpatient Medications Medication Sig donepezil (ARICEPT) 10 mg tablet Take 1 tablet by mouth daily after breakfast. sertraline (ZOLOFT) 50 mg tablet Take 1 tablet by mouth once daily. Please take half pill for a week and then increase to a full pill diclofenac (VOLTAREN ARTHRITIS PAIN) 1 % topical gel Apply 2 g to affected area four times daily. Takes as needed Magnesium Oxide 250 mg magnesium tab Take 1 tablet by mouth daily at bedtime. Cholecalciferol, Vitamin D3, 50 mcg (2,000 unit) cap Take 1 capsule by mouth once daily. cyanocobalamin (VITAMIN B-12) 1,000 mcg tab Take 1 tablet by mouth once daily. gabapentin (NEURONTIN) 300 mg capsule Take 2 capsules by mouth daily at bedtime AND 1 capsule every morning. Do all this for 180 days. oxyCODONE IR (ROXICODONE) 5 mg immediate release tablet Take by mouth every 8 hours as needed for pain. Managed by Dr. Mora, Pain Management manages albuterol HFA (PROAIR HFA) 90 mcg/actuation inhaler Inhale 2 Puffs as instructed every 4 hours as needed for wheezing/shortness of breath. 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 warfarin (COUMADIN) 5 mg tablet Take 1 tablet by mouth once daily. montelukast (SINGULAIR) 10 mg tablet Take 10 mg by mouth daily at bedtime. glimepiride (AMARYL) 2 mg tablet Take 1 tablet by mouth two times a day with meals. atorvastatin (LIPITOR) 10 mg tablet Take 1 tablet by mouth once daily. nitrofurantoin monohydrate and macrocrystal (MACROBID) 100 mg capsule Take 1 capsule by mouth every other day. triamcinolone acetonide (KENALOG) 0.1 % cream Apply 1 application to affected area three times a day as needed. For rash fluticasone-vilanterol (BREO ELLIPTA) 100-25 mcg/dose inhaler Inhale 1 Inhalation as instructed once daily. (Patient not taking: Reported on 03/13/2025) TENS unit and electrodes cmpk 1 Each [...] Sulfa (Sulfonamide * Hives ACTIVE PROBLEM LIST Alzheimer Dementia ([facility]) - 02/07/2025 Obesity, Class I, Bmi 30-34.9 - 09/23/2023 Hemorrhagic Disorder Due to Extrinsic Circulating Anticoagulants ([facility]) - 09/23/2023 Ulcer of Right Lower Extremity With Fat Layer Exposed ([facility]) - 07/26/2023 Pulmonary Hypertension ([facility]) - 05/03/2023 Ramesh (Obstructive Sleep Apnea) - 01/21/2021 Pacemaker - 01/21/2021 Bilateral Carpal Tunnel Syndrome - 01/21/2021 Atrial Flutter ([facility]) - 04/12/2019 Anticoagulated On Coumadin - 04/12/2019 Severe Low Back Pain - 12/28/2018 Ddd (Degenerative Disc Disease), Lumbar Comment: Dr. Agudelo Muscle Spasm Rotator Cuff Tear (more content not included)... [facility] 03-13-2025 History of Presen t illness Narrative SUBJECTIVE Keisha Red is a 80 year old female here today for a check up on her medical problems. Chief Complaint Patient presents with: F/U 3 Month: pain in knees no recent x-ray HPI Keisha is a 80-year-old female with a history of recurrent UTIs, presenting for a 3-month follow-up. She is accompanied by her daughter, who is providing additional history. Keisha reports recurrent UTIs, for which she has been visiting urgent care. She mentions a recommendation to start a prophylactic antibiotic regimen due to the frequency of infections. She denies dehydration and states she drinks 4 bottles of water daily, using flavored packets to enhance the taste. A urine culture in December showed E. coli, and a follow-up culture in January confirmed the infection was cleared with Macrobid. She also reports right knee pain, exacerbated by climbing stairs, and notes that her hip pain may be related to her knee issues. 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 She has been using ear wipes to manage the crusting. She has a pacemaker and is under the care of Dr. Castrejon for memory issues. She recently had a brain scan in [place]. Her most recent A1c in November was 5.9. She has not visited the eye doctor recently but received a message to schedule an appointment. She reports occasional diplopia. She denies any chest pain, chest tightness or shortness of breath. Daughter helps prepare her medications and ensures adherence. Her medications were reviewed today and her list is now up to date. Medications Current Outpatient Medications Medication Sig donepezil (ARICEPT) 10 mg tablet Take 1 tablet by mouth daily after breakfast. sertraline (ZOLOFT) 50 mg tablet Take 1 tablet by mouth once daily. Please take half pill for a week and then increase to a full pill diclofenac (VOLTAREN ARTHRITIS PAIN) 1 % topical gel Apply 2 g to affected area four times daily. Takes as needed Magnesium Oxide 250 mg magnesium tab Take 1 tablet by mouth daily at bedtime. Cholecalciferol, Vitamin D3, 50 mcg (2,000 unit) cap Take 1 capsule by mouth once daily. cyanocobalamin (VITAMIN B-12) 1,000 mcg tab Take 1 tablet by mouth once daily. gabapentin (NEURONTIN) 300 mg capsule Take 2 capsules by mouth daily at bedtime AND 1 capsule every morning. Do all this for 180 days. oxyCODONE IR (ROXICODONE) 5 mg immediate release tablet Take by mouth every 8 hours as needed for pain. Managed by Dr. Mora, Pain Management manages albuterol HFA (PROAIR HFA) 90 mcg/actuation inhaler Inhale 2 Puffs as instructed every 4 hours as needed for wheezing/shortness of breath. 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 warfarin (COUMADIN) 5 mg tablet Take 1 tablet by mouth once daily. montelukast (SINGULAIR) 10 mg tablet Take 10 mg by mouth daily at bedtime. glimepiride (AMARYL) 2 mg tablet Take 1 tablet by mouth two times a day with meals. atorvastatin (LIPITOR) 10 mg tablet Take 1 tablet by mouth once daily. nitrofurantoin monohydrate and macrocrystal (MACROBID) 100 mg capsule Take 1 capsule by mouth every other day. triamcinolone acetonide (KENALOG) 0.1 % cream Apply 1 application to affected area three times a day as needed. For rash fluticasone-vilanterol (BREO ELLIPTA) 100-25 mcg/dose inhaler Inhale 1 Inhalation as instructed once daily. (Patient not taking: Reported on 03/13/2025) TENS unit and electrodes cmpk 1 Each [...] Sulfa (Sulfonamide * Hives ACTIVE PROBLEM LIST Alzheimer Dementia ([facility]) - 02/07/2025 Obesity, Class I, Bmi 30-34.9 - 09/23/2023 Hemorrhagic Disorder Due to Extrinsic Circulating Anticoagulants ([facility]) - 09/23/2023 Ulcer of Right Lower Extremity With Fat Layer Exposed ([facility]) - 07/26/2023 Pulmonary Hypertension ([facility]) - 05/03/2023 Ramesh (Obstructive Sleep Apnea) - 01/21/2021 Pacemaker - 01/21/2021 Bilateral Carpal Tunnel Syndrome - 01/21/2021 Atrial Flutter ([facility]) - 04/12/2019 Anticoagulated On Coumadin - 04/12/2019 Severe Low Back Pain - 12/28/2018 Ddd (Degenerative Disc Disease), Lumbar Comment: Dr. 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 Cardiovascular: Negative. Musculoskeletal: Positive for arthralgias, back pain and gait problem. OBJECTIVE BP 120/72 Pulse 80 Wt 188 lb 0.8 oz (85.3kg) SpO2 98% Physical Exam Vitals and nursing [...] regular rhythm. Pulses: Normal pulses. Heart sounds: Murmur heard. Pulmonary: Effort: Pulmonary effort is normal. [...] Content: Thought content normal. Cognition and Memory: Memory is impaired. Judgment: Judgment normal. ASSESSMENT/PLAN: 1. Chronic pain of right knee (M25.561) Chronic pain of left knee (M25.562) Right knee pain is more severe than left. Pain exacerbated by stair climbing. Suspected osteoarthritis. - Ordered X-rays of both knees, with a focus on the right knee, to assess for severity of arthritis. - Will review X-ray results and consider intra-articular corticosteroid injections if arthritis is not severe. - Referral to orthopedics if X-rays show severe arthritis or [id number] changes. 2. Frequent UTI (N39.0) Recurrent UTIs with previous cultures showing E. coli. Macrobid has been effective in clearing infections. - Initiated prophylactic Macrobid every other day (Thursday, Thursday, Thursday). - Monitor for recurrence of symptoms; adjust regimen if necessary. 3. Flexural atopic dermatitis (L20.89) Chronic eczema noted behind both ears and extending into the hairline. - Prescribed topical corticosteroid cream. - Sent prescription to [facility] pharmacy. 4. Rash of neck (R21) Possible lipoma on the back of the neck, previously identified but not concerning. 5. Cognitive impairment (R41.89) Under management by Dr. Castrejon. Recent brain scan performed in [place]. 6. Controlled type 2 diabetes mellitus without complication, without long-term current use of insulin (HCC) (E11.9) Well-controlled with recent A1c at 5.9%. - No immediate changes to management. - Ordered non-fasting cholesterol panel before next appointment. 7. Mixed hyperlipidemia (E78.2) Currently managed; no recent lipid panel available. - Ordered non-fasting cholesterol panel before next appointment. 8. Essential hypertension (I10) Blood pressure well-controlled during visit. 9. Atrial flutter, unspecified type (HCC) (I48.92) Stable with pacemaker in situ. 10. Severe low back pain (M54.50) Chronic condition managed by Dr. Hodges's office. 11. Encounter for therapeutic drug monitoring (Z51.81) Recording using [email or web address] software for draft documentation of the visit was discussed with the patient/authorized tax compliance representative; all questions welcomed and answered. Patient/authorized tax compliance representative agreed to proceed Portions of this note have been entered [...] Age-appropriate health preventative measures were discussed. Return in about 3 months (around 06/13/2025) for Follow up on chronic conditions and medications.. ENEDINA Klein documented in this encounter [facility] 02-22-2025 Telephone encounter Note Dian NOTIFIED OF SAME and voiced her understanding. [facility] 02-22-2025 Miscellaneous Notes Dian NOTIFIED OF SAME and voiced her understanding. It would be ideal to discuss the options with her visit, we could consider use of the Macrobid as preventative. Daughter (Dian) calls to ask about prescribing patient Macrobid on Thursday, Thursday ,Thursday for chronic UTI's. Recommended appt. Dian reports that patient was to [facility] and they recommended to reach out to PCP to request. Patient scheduled to see Whitney Hammond on 03/10/2025 and asking provider to review prior to previously scheduled appt. Roopa Edgar RN documented in this encounter [facility] 02-22-2025 Telephone encounter Note PATIENT NOTIFIED OF SAME. [facility] 02-22-2025 Miscellaneous Notes PATIENT NOTIFIED OF SAME. This is what I was able to find for [facility], please let her know: Medical Alert equipment has been purchased by the [facility] as a community service and is available to you for a rental fee of $20 per month for a landline and $25 per month for a wireless line. There is no equipment for you to buy, no installation charge, and no maintenance charge for you to pay. For more information about the [facility] Medical Alert, contact [facility] at [phone]. Pt reports she would like to get a medical alert necklace- where she can push a button for help. A company she spoke to told her it would cost $44.97 a month. Pt asking if pcp can prescribe this and if there are places where she can get one for free? Reports someone she knows got one from [facility] for free. Please phone pt with reply. documented in this encounter [facility] 02-22-2025 Telephone encounter Note It would be ideal to discuss the options with her visit, we could consider use of the Macrobid as preventative. [facility] 02-22-2025 Telephone encounter Note This is what I was able to find for [facility], please let her know: Medical Alert equipment has been purchased by the [facility] as a community service and is available to you for a rental fee of $20 per month for a landline and $25 per month for a wireless line. There is no equipment for you to buy, no installation charge, and no maintenance charge for you to pay. For more information about the [facility] Medical Alert, contact [facility] at [phone]. [facility] 02-22-2025 Telephone encounter Note Pt reports she would like to get a medical alert necklace- where she can push a button for help. A company she spoke to told her it would cost $44.97 a month. Pt asking if pcp can prescribe this and if there are places where she can get one for free? Reports someone she knows got one from [facility] for free. Please phone pt with reply. [facility] 02-22-2025 Telephone encounter Note Daughter (Dian) calls to ask about prescribing patient Macrobid on Thursday, Thursday ,Thursday for chronic UTI's. Recommended appt. Dian reports that patient was to [facility] and they recommended to reach out to PCP to request. Patient scheduled to see Whitney Hammond on 03/10/2025 and asking provider to review prior to previously scheduled appt. Roopa Edgar RN [facility] 02-09-2025 Instructions Xochitl Castrejon MD - 02/09/2025 3:31 PM EDT We discussed your dementia and the medication Aricept: - You are currently taking Aricept (donepezil) for dementia. Your family is assisting with ensuring you take your medication as prescribed. - You mentioned occasionally skipping doses at night. It is important to take Aricept consistently every morning after breakfast. Please work with your family to ensure this happens. - I have increased your Aricept dose to 10 mg daily, as you are tolerating the medication well. This prescription has been sent to your pharmacy. We discussed your recent fall and injuries: - You fell last week while using a step ladder and injured your foot and arm. You also had a bruise on your arm, which is improving. - Please avoid using step ladders or engaging in activities that may increase your risk of falling. Consider asking family members for assistance with tasks that require reaching or climbing. - If you experience persistent pain, swelling, or new injuries, please let me know. We discussed your diet and blood sugar: - Your blood sugar levels have been fluctuating, with a recent reading of 162. Please continue monitoring your blood sugar as directed. - You mentioned eating muffins and other sweets. I recommend reducing your intake of sweets and substituting them with healthier options. Your family can help you find alternatives that you enjoy. 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 - Continue engaging in activities like word search puzzles, as they are beneficial for your cognitive health. Follow-Up: - Please monitor your symptoms and let me know if you experience any side effects from the increased Aricept dose, such as nausea, dizziness, or changes in appetite. - If you have any concerns or new symptoms, please call our office. documented in this encounter [facility] 02-09-2025 Note HNO ID: [id number] Author: XOCHITL CASTREJON MD Service: ? Author Type: Physician Type: Progress Notes Filed: 02/09/2025 16:34 Note Text: Reason for Visit Follow up. HIREN Valdes is a 79-year-old female with a history of dementia, presenting for a follow-up visit. She is accompanied by her daughter, who is providing additional history. Keisha was started on donepezil during her last visit and has been taking it with breakfast, as managed by her granddaughter. She is tolerating the medication well but reports no significant improvement in symptoms. Her daughter notes that Keisha has been a little cranky, though she does not attribute this to the medication. Keisha denies weight loss and is maintaining her usual diet, which includes a preference for muffins. 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 However, she has experienced multiple falls recently. Last week, she fell in her house while cleaning her closet, resulting in a foot injury. EMS was called for a lift assist due to her niece's . She also reports a fall on a Thursday, which caused bruising on her arm and pain that has since subsided. She mentions difficulty moving her thumb and hearing clicking sounds in her bones. Keisha is currently taking multiple medications, including a cholesterol medication, donepezil, Amaryl, nitrofurantoin, oxybutynin, and Zoloft. She inquires about a medication she saw advertised on TV that purportedly helps with falling and other issues she is experiencing. Social History Tobacco Use Smoking status: Never Smokeless tobacco: Never Vaping Use Vaping status: Never Used Substance Use Topics Alcohol use: No Drug use: Never Past medical history, appointments, medications, allergies reviewed. Pertinent Lab/Diagnostic Studies are reviewed and discussed today Current Outpatient Medications: nitrofurantoin monohydrate and macrocrystal (MACROBID) 100 mg capsule sertraline (ZOLOFT) 50 mg tablet diclofenac (VOLTAREN ARTHRITIS PAIN) 1 % topical gel Magnesium Oxide 250 mg magnesium tab Cholecalciferol, Vitamin D3, 50 mcg (2,000 unit) cap cyanocobalamin (VITAMIN B-12) 1,000 mcg tab gabapentin (NEURONTIN) 300 mg capsule glimepiride (AMARYL) 2 mg tablet oxyCODONE IR (ROXICODONE) 5 mg immediate release tablet fluticasone-vilanterol (BREO ELLIPTA) 100-25 mcg/dose inhaler albuterol HFA (PROAIR HFA) 90 mcg/actuation inhaler oxybutynin ER (DITROPAN XL) 10 mg 24 hr tablet warfarin (COUMADIN) 5 mg tablet montelukast (SINGULAIR) 10 mg tablet atorvastatin (LIPITOR) 10 mg tablet TENS unit and electrodes cmpk tens unit electrodes (TENS UNITS ELECTRODES) 2X2 pads triamcinolone acetonide (KENALOG) 0.1 % cream blood sugar diagnostic (BLOOD GLUCOSE TEST) test strip Lancets lancets donepezil (ARICEPT) 10 mg tablet Health Maintenance Spirometry Shingrix Vaccine(1 of 2) Pneumococcal Vaccine: 50+(2 of 2 - PCV) DTaP,Tdap,Td Vaccine(2 - Td or Tdap) RSV Vaccine(1 - 1-dose 75+ series) Diabetic Foot Exam BP Controlled (<130/80) Urine Albumin:Creatinine Ratio LDL Cholesterol Advance Directive Discussion Dilated Retinal Exam@ Review Of Systems Constitutional: (-) weight loss Musculoskeletal: (+) arm pain, (+) decreased thumb range of motion, (+) foot/toe pain Skin: (+) ecchymosis (arm) Psychiatric: (+) irritability Physical Exam BP 109/71 Pulse 61 Ht 172.7 cm (5' 8) Wt 86.7 kg (191 lb 3.2 oz) SpO2 98% BMI 29.07 kg/m? GENERAL: here with a Walker, alert and oriented SKIN: Unremarkable, no rash or skin lesions. HEAD: Normocephalic EYES: PERRLA, EOMI, conjunctiva clear NECK: Supple, no lymphadenopathy, normal thyroid, no carotid bruits. LUNGS: Clear to auscultation bilaterally, no wheezes/rhonchi/rales. HEART: Regular rate and rhythm, no murmurs. No ectopy. EXTREMITIES: Normal, no deformities, no skin discoloration, no edema. NEURO: Awake, alert and oriented x3, cranial nerves II-XII grossly intact, normal gait, no involuntary motions Assessment and Plan 1. Dementia without behavioral disturbance (HCC) (F03.90) Currently on Aricept, with good tolerance but minimal perceived benefit. No significant weight loss or bradycardia observed. 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 Recent fall reported, resulting in minor injuries to the foot and arm. - Increased Aricept to 10 mg daily, to be taken after breakfast. - Reinforced importance of consistent medication adherence; family members to assist with medication administration. - Monitor for any adverse effects, including gastrointestinal symptoms and bradycardia. - Follow-up in 4 weeks to assess efficacy and tolerability of increased dosage. 2. Type 2 diabetes mellitus without complication, without long-term current use of insulin (HCC) (E11.9) Blood glucose levels have been fluctuating, with recent readings as high as 248 mg/dL. I (more content not included)... [facility] 02-09-2025 History of Presen t illness Narrative Reason for Visit Follow up. HIREN Valdes is a 79-year-old female with a history of dementia, presenting for a follow-up visit. She is accompanied by her daughter, who is providing additional history. Keisha was started on donepezil during her last visit and has been taking it with breakfast, as managed by her granddaughter. She is tolerating the medication well but reports no significant improvement in symptoms. Her daughter notes that Keisha has been a little cranky, though she does not attribute this to the medication. Keisha denies weight loss and is maintaining her usual diet, which includes a preference for muffins. 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 However, she has experienced multiple falls recently. Last week, she fell in her house while cleaning her closet, resulting in a foot injury. EMS was called for a lift assist due to her niece's . She also reports a fall on a Thursday, which caused bruising on her arm and pain that has since subsided. She mentions difficulty moving her thumb and hearing clicking sounds in her bones. Keisha is currently taking multiple medications, including a cholesterol medication, donepezil, Amaryl, nitrofurantoin, oxybutynin, and Zoloft. She inquires about a medication she saw advertised on TV that purportedly helps with falling and other issues she is experiencing. Social History Tobacco Use Smoking status: Never Smokeless tobacco: Never Vaping Use Vaping status: Never Used Substance Use Topics Alcohol use: No Drug use: Never Past medical history, appointments, medications, allergies reviewed. Pertinent Lab/Diagnostic Studies are reviewed and discussed today Current Outpatient Medications: nitrofurantoin monohydrate and macrocrystal (MACROBID) 100 mg capsule sertraline (ZOLOFT) 50 mg tablet diclofenac (VOLTAREN ARTHRITIS PAIN) 1 % topical gel Magnesium Oxide 250 mg magnesium tab Cholecalciferol, Vitamin D3, 50 mcg (2,000 unit) cap cyanocobalamin (VITAMIN B-12) 1,000 mcg tab gabapentin (NEURONTIN) 300 mg capsule glimepiride (AMARYL) 2 mg tablet oxyCODONE IR (ROXICODONE) 5 mg immediate release tablet fluticasone-vilanterol (BREO ELLIPTA) 100-25 mcg/dose inhaler albuterol HFA (PROAIR HFA) 90 mcg/actuation inhaler oxybutynin ER (DITROPAN XL) 10 mg 24 hr tablet warfarin (COUMADIN) 5 mg tablet montelukast (SINGULAIR) 10 mg tablet atorvastatin (LIPITOR) 10 mg tablet TENS unit and electrodes cmpk tens unit electrodes (TENS UNITS ELECTRODES) 2X2 pads triamcinolone acetonide (KENALOG) 0.1 % cream blood sugar diagnostic (BLOOD GLUCOSE TEST) test strip Lancets lancets donepezil (ARICEPT) 10 mg tablet Health Maintenance Spirometry Shingrix Vaccine(1 of 2) Pneumococcal Vaccine: 50+(2 of 2 - PCV) DTaP,Tdap,Td Vaccine(2 - Td or Tdap) RSV Vaccine(1 - 1-dose 75+ series) Diabetic Foot Exam BP Controlled (<130/80) Urine Albumin:Creatinine Ratio LDL Cholesterol Advance Directive Discussion Dilated Retinal Exam@ Review Of Systems Constitutional: (-) weight loss Musculoskeletal: (+) arm pain, (+) decreased thumb range of motion, (+) foot/toe pain Skin: (+) ecchymosis (arm) Psychiatric: (+) irritability Physical Exam BP 109/71 Pulse 61 Ht 172.7 cm (5' 8) Wt 86.7 kg (191 lb 3.2 oz) SpO2 98% BMI 29.07 kg/m GENERAL: here with a Walker, alert and oriented SKIN: Unremarkable, no rash or skin lesions. HEAD: Normocephalic EYES: PERRLA, EOMI, conjunctiva clear NECK: Supple, no lymphadenopathy, normal thyroid, no carotid bruits. LUNGS: Clear to auscultation bilaterally, no wheezes/rhonchi/rales. HEART: Regular rate and rhythm, no murmurs. No ectopy. EXTREMITIES: Normal, no deformities, no skin discoloration, no edema. NEURO: Awake, alert and oriented x3, cranial nerves II-XII grossly intact, normal gait, no involuntary motions Assessment and Plan 1. Dementia without behavioral disturbance (HCC) (F03.90) Currently on Aricept, with good tolerance but minimal perceived benefit. No significant weight loss or bradycardia observed. 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 Recent fall reported, resulting in minor injuries to the foot and arm. - Increased Aricept to 10 mg daily, to be taken after breakfast. - Reinforced importance of consistent medication adherence; family members to assist with medication administration. - Monitor for any adverse effects, including gastrointestinal symptoms and bradycardia. - Follow-up in 4 weeks to assess efficacy and tolerability of increased dosage. 2. Type 2 diabetes mellitus without complication, without long-term current use of insulin (HCC) (E11.9) Blood glucose levels have been fluctuating, with recent readings as high as 248 mg/dL. Increased consumption of sweets noted, potentially contributing to hyperglycemia. - Advised dietary modifications to reduce intake of high-sugar foods. - Continue current diabetes medications: Amaryl. - Monitor blood glucose levels regularly. - Follow-up in 4 weeks to evaluate blood glucose control and dietary adherence. Voice recognition software was used to compose this office note. Please excuse any unintended typographical errors. Recording using [email or web address] software for draft documentation of the visit was discussed with the patient/authorized tax compliance representative; all questions welcomed and answered. Patient/authorized tax compliance representative agreed to proceed Xochitl Castrejon MD documented in this encounter [facility] 02-09-2025 Miscellaneous Notes Patient daughter Dian notified of results, verbalized understanding and noted that patient has f/u appt with Dr Castrejon today and will plan to discuss safety equipment tester antibiotic therapy for chronic UTI issues. Alejandra Stevens MA Please call and let patient know only normal bacteria grew in the culture. If symptoms persist follow-up with primary care documented in this encounter [facility] 02-09-2025 Telephone encounter Note Patient daughter Dina notified of results, verbalized understanding and noted that patient has f/u appt with Dr Castrejon today and will plan to discuss safety equipment tester antibiotic therapy for chronic UTI issues. Alejandra Stevens MA [facility] 02-09-2025 Telephone encounter Note Please call and let patient know only normal bacteria grew in the culture. If symptoms persist follow-up with primary care [facility] Work Phone: 02-07-2025 Note HNO ID: [id number] Author: CLARISSE JOYCE APRN.DOMINGO Service: ? Author Type: Nurse Practitioner Type: Progress Notes Filed: 02/07/2025 17:46 Note Text: [facility] Subjective Keisha Red is a 79 year old female. Patient presents with: Urinary Problem: Memory issues, balance off x 2 days 79 year old female with PMH Acute onset a few days ago Presents with granddaughter. Patient states that yesterday evening she noticed her urine was yellow. She states today it was darker and cloudy. Granddaughter states she has been a little more confused than normal recently and seemed off balance, which is her normal presentation. In fact, patient was here in December under same context At that time her urine culture was POSITIVE for e.coli Placed on Macrobid Denies recent catherization Denies abdominal pain Denies N/V/D The history is provided by the patient. No modern languages professor was used. UTI This is a new problem. The current episode started more than 2 days ago. There has been no fever. Pertinent negatives include no nausea and no vomiting. She has tried nothing for the symptoms. Her past medical history is significant for recurrent UTIs. PAST MEDICAL HISTORY Diagnosis Date Allergic rhinitis, [...] Right shoulder s/p fall with reduction at [facility] Type II or unspecified type diabetes [...] Amoxicillin, Aspirin, and Sulfa (Sulfonamide Antibiotics) MEDICATIONS sertraline (ZOLOFT) 50 mg tablet Take 1 tablet by mouth once daily. Please take half pill for a week and then increase to a full pill donepezil (ARICEPT) 5 mg tablet Take 1 tablet by mouth daily with breakfast. diclofenac (VOLTAREN ARTHRITIS PAIN) 1 % topical gel Apply 2 g to affected area four times daily. Takes as needed Magnesium Oxide 250 mg magnesium tab Take 1 tablet by mouth daily at bedtime. Cholecalciferol, Vitamin D3, 50 mcg (2,000 unit) cap Take 1 capsule by mouth once daily. cyanocobalamin (VITAMIN B-12) 1,000 mcg tab Take 1 tablet by mouth once daily. gabapentin (NEURONTIN) 300 mg capsule Take 2 capsules by mouth daily at bedtime AND 1 capsule every morning. Do all this for 180 days. glimepiride (AMARYL) 2 mg tablet Take 1 tablet by mouth two times a day with meals. oxyCODONE IR (ROXICODONE) 5 mg immediate release tablet Take by mouth every 8 hours as needed for pain. Managed by Dr. Mora, Pain Management manages fluticasone-vilanterol (BREO ELLIPTA) 100-25 mcg/dose inhaler Inhale 1 Inhalation as instructed once daily. albuterol HFA (PROAIR HFA) 90 mcg/actuation inhaler Inhale 2 Puffs as instructed every 4 hours as needed for wheezing/shortness of breath. 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 warfarin (COUMADIN) 5 mg tablet Take 1 tablet by mouth once daily. montelukast (SINGULAIR) 10 mg tablet Take 10 mg by mouth daily at bedtime. atorvastatin (LIPITOR) 10 mg tablet Take 1 tablet by mouth once daily. TENS unit and electrodes cmpk 1 Each once daily. tens unit electrodes (TENS UNITS ELECTRODES) 2X2 pads Change pad every month as indicated triamcinolone acetonide (KENALOG) 0.1 % cream Apply 1 application to affected area three times daily as needed. For rash on extremities and leg blood sugar diagnostic (BLOOD GLUCOSE TEST) test strip Test blood sugar(s) 1 times daily. Dx: Type 2 DM - Controlled E11.9 Insulin: No Lancets lancets Test blood sugar(s) 1 times daily. Dx: Type 2 DM - Controlled E11.9 Insulin: No nitrofurantoin monohydrate and macrocrystal (MACROBID) 100 mg capsule Take 1 capsule by mouth two times a day for 5 days. FAMILY HISTORY Problem Relation Age of Onset Diabetes Mother Coronary Artery Disease Father Cancer Sister lung Dementia Brother Migraines Daughter Migraines Son other (nephrolithiasis) Son Hypertension Son Social History Tobacco Use Smoking status: Never Smokeless tobacco: Never Vaping Use Vaping status: Never Used Substance Use Topics Alcohol use: N (more content not included)... [facility] 02-07-2025 History of Presen t illness Narrative [facility] Subjective Keisha Red is a 79 year old female. Patient presents with: Urinary Problem: Memory issues, balance off x 2 days 79 year old female with PMH Acute onset a few days ago Presents with granddaughter. Patient states that yesterday evening she noticed her urine was yellow. She states today it was darker and cloudy. Granddaughter states she has been a little more confused than normal recently and seemed off balance, which is her normal presentation. In fact, patient was here in December under same context At that time her urine culture was POSITIVE for e.coli Placed on Macrobid Denies recent catherization Denies abdominal pain Denies N/V/D The history is provided by the patient. No modern languages professor was used. UTI This is a new problem. The current episode started more than 2 days ago. There has been no fever. Pertinent negatives include no nausea and no vomiting. She has tried nothing for the symptoms. Her past medical history is significant for recurrent UTIs. PAST MEDICAL HISTORY Diagnosis Date Allergic rhinitis, [...] Right shoulder s/p fall with reduction at [facility] Type II or unspecified type diabetes [...] Amoxicillin, Aspirin, and Sulfa (Sulfonamide Antibiotics) MEDICATIONS sertraline (ZOLOFT) 50 mg tablet Take 1 tablet by mouth once daily. Please take half pill for a week and then increase to a full pill donepezil (ARICEPT) 5 mg tablet Take 1 tablet by mouth daily with breakfast. diclofenac (VOLTAREN ARTHRITIS PAIN) 1 % topical gel Apply 2 g to affected area four times daily. Takes as needed Magnesium Oxide 250 mg magnesium tab Take 1 tablet by mouth daily at bedtime. Cholecalciferol, Vitamin D3, 50 mcg (2,000 unit) cap Take 1 capsule by mouth once daily. cyanocobalamin (VITAMIN B-12) 1,000 mcg tab Take 1 tablet by mouth once daily. gabapentin (NEURONTIN) 300 mg capsule Take 2 capsules by mouth daily at bedtime AND 1 capsule every morning. Do all this for 180 days. glimepiride (AMARYL) 2 mg tablet Take 1 tablet by mouth two times a day with meals. oxyCODONE IR (ROXICODONE) 5 mg immediate release tablet Take by mouth every 8 hours as needed for pain. Managed by Dr. Mora, Pain Management manages fluticasone-vilanterol (BREO ELLIPTA) 100-25 mcg/dose inhaler Inhale 1 Inhalation as instructed once daily. albuterol HFA (PROAIR HFA) 90 mcg/actuation inhaler Inhale 2 Puffs as instructed every 4 hours as needed for wheezing/shortness of breath. 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 warfarin (COUMADIN) 5 mg tablet Take 1 tablet by mouth once daily. montelukast (SINGULAIR) 10 mg tablet Take 10 mg by mouth daily at bedtime. atorvastatin (LIPITOR) 10 mg tablet Take 1 tablet by mouth once daily. TENS unit and electrodes cmpk 1 Each once daily. tens unit electrodes (TENS UNITS ELECTRODES) 2X2 pads Change pad every month as indicated triamcinolone acetonide (KENALOG) 0.1 % cream Apply 1 application to affected area three times daily as needed. For rash on extremities and leg blood sugar diagnostic (BLOOD GLUCOSE TEST) test strip Test blood sugar(s) 1 times daily. Dx: Type 2 DM - Controlled E11.9 Insulin: No Lancets lancets Test blood sugar(s) 1 times daily. Dx: Type 2 DM - Controlled E11.9 Insulin: No nitrofurantoin monohydrate and macrocrystal (MACROBID) 100 mg capsule Take 1 capsule by mouth two times a day for 5 days. FAMILY HISTORY Problem Relation Age of Onset Diabetes Mother Coronary Artery Disease Father Cancer Sister lung Dementia Brother Migraines Daughter Migraines Son other (nephrolithiasis) Son Hypertension Son Social History Tobacco Use Smoking status: Never Smokeless tobacco: Never Vaping Use Vaping status: Never Used Substance Use Topics Alcohol use: No Drug use: Never Review of Systems Constitutional: Negative for activity change, appetite change, fatigue and fever. Respiratory: Negative for apnea, choking and chest tightness. Gastrointestinal: Negative for abdominal pain, diarrhea, nausea and vomiting. Genitourinary: Positive for dysuria. Skin: Negative for color change, pallor, rash and wound. Allergic/Immunologic: Negative for environmental allergies, food allergies and immunocompromised state. Neurological: Negative for dizziness, facial asymmetry and headaches. Hematological: Negative for adenopathy. Does not bruise/bleed easily. Objective BP 130/69 Pulse 92 Temp 36.3 C (97.4 F) Resp 20 Wt 86 kg (189 lb 9.5 oz) SpO2 94% BMI 30.60 kg/m Physical Exam Vitals and nursing note reviewed. Constitutional: General: She is not in acute distress. Appearance: Normal appearance. She is normal weight. She is not ill-appearing, toxic-appearing or diaphoretic. HENT: Head: Normocephalic and atraumatic. Right Ear: [...] No edema. Left lower leg: No edema. Lymphadenopathy: Cervical: No cervical adenopathy. Skin: General: [...] Content: Thought content normal. Judgment: Judgment normal. {ASSESSMENT/PLAN: 1. Urinary tract infection with hematuria, site unspecified - ICD9: 599.0, 599.70, ICD10: N39.0, R31.9 (primary diagnosis) acute - UA positive for trae esterase, hematuria, and nitrates - Send urine for culture - Begin treatment with Macrobid 100 mg BID for 5 days - Patient education for prevention given - UA DIP, URINE (POC) - BACTERIAL CULTURE, URINE 2. Confusion - ICD9: 298.9, ICD10: R41.0 Patient denies Accompanied by granddaughter who endorses she is her confused self when she has a UTI UA convincing for UTI Have discussed with patients granddaughter that other factors and etiologies could be at play for confusion CVA, electrolyte, anemia, etc and the limitations of express care We do this a lot Clarisse Joyce APRN.DOMINGO History and Record Review External record(s) reviewed: prior inpatient record and prior outpatient record. Differential Diagnoses - cystitis Contributing Factors Chronic conditions affecting care: diabetes and hypertension Disposition The patient was discharged. Procedures documented in this encounter [facility] 01-08-2025 Telephone encounter Note TC to patient who verbalized understanding of providers message below. CLAUDIA Rutledge [facility] 01-08-2025 Miscellaneous Notes TC to patient who verbalized understanding of providers message below. CLAUDIA Rutledge Please contact patient let her know she is on the appropriate antibiotic therapy for UTI. Please continue as prescribed documented in this encounter [facility] 01-08-2025 Telephone encounter Note Please contact patient let her know she is on the appropriate antibiotic therapy for UTI. Please continue as prescribed [facility] 01-05-2025 Note HNO ID: [id number] Author: ANTONINO CRANDALL PA Service: ? Author Type: Physician Bus Person Type: Progress Notes Filed: 01/05/2025 10:39 Note Text: [facility] Subjective Keisha Red is a 79 year old female. Patient presents with: Urinary Problem: Having balance issues, increased confusion x 4 days HPI 79-year-old female presents for concern for UTI. Presents with granddaughter. Patient states that yesterday evening she noticed her urine was white. She states today it was darker and cloudy. Granddaughter states she has been a little more confused than normal recently and seemed off balance for the past few weeks. She was seen in the ER yesterday evening after she had a fall earlier this week for her shoulder pain. Patient has had no falls since. She is alert and oriented x 3 currently. She denies any fevers, abdominal pain, vomiting or back pain. No other complaint. PAST MEDICAL HISTORY Diagnosis Date Allergic rhinitis, [...] Right shoulder s/p fall with reduction at [facility] Type II or unspecified type diabetes [...] Amoxicillin, Aspirin, and Sulfa (Sulfonamide Antibiotics) MEDICATIONS sertraline (ZOLOFT) 50 mg tablet Take 1 tablet by mouth once daily. Please take half pill for a week and then increase to a full pill donepezil (ARICEPT) 5 mg tablet Take 1 tablet by mouth daily with breakfast. diclofenac (VOLTAREN ARTHRITIS PAIN) 1 % topical gel Apply 2 g to affected area four times daily. Takes as needed Magnesium Oxide 250 mg magnesium tab Take 1 tablet by mouth daily at bedtime. Cholecalciferol, Vitamin D3, 50 mcg (2,000 unit) cap Take 1 capsule by mouth once daily. cyanocobalamin (VITAMIN B-12) 1,000 mcg tab Take 1 tablet by mouth once daily. gabapentin (NEURONTIN) 300 mg capsule Take 2 capsules by mouth daily at bedtime AND 1 capsule every morning. Do all this for 180 days. glimepiride (AMARYL) 2 mg tablet Take 1 tablet by mouth two times a day with meals. oxyCODONE IR (ROXICODONE) 5 mg immediate release tablet Take by mouth every 8 hours as needed for pain. Managed by Dr. Mora, Pain Management manages albuterol HFA (PROAIR HFA) 90 mcg/actuation inhaler Inhale 2 Puffs as instructed every 4 hours as needed for wheezing/shortness of breath. 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 warfarin (COUMADIN) 5 mg tablet Take 1 tablet by mouth once daily. montelukast (SINGULAIR) 10 mg tablet Take 10 mg by mouth daily at bedtime. atorvastatin (LIPITOR) 10 mg tablet Take 1 tablet by mouth once daily. TENS unit and electrodes cmpk 1 Each once daily. tens unit electrodes (TENS UNITS ELECTRODES) 2X2 pads Change pad every month as indicated triamcinolone acetonide (KENALOG) 0.1 % cream Apply 1 application to affected area three times daily as needed. For rash on extremities and leg blood sugar diagnostic (BLOOD GLUCOSE TEST) test strip Test blood sugar(s) 1 times daily. Dx: Type 2 DM - Controlled E11.9 Insulin: No Lancets lancets Test blood sugar(s) 1 times daily. Dx: Type 2 DM - Controlled E11.9 Insulin: No fluticasone-vilanterol (BREO ELLIPTA) 100-25 mcg/dose inhaler Inhale 1 Inhalation as instructed once daily. (Patient not taking: Reported on 11/10/2024) FAMILY HISTORY Problem Relation Age of Onset Diabetes Mother Coronary Artery Disease Father Cancer Sister lung Dementia Brother Migraines Daughter Migraines Son other (nephrolithiasis) Son Hypertension Son Social History Tobacco Use Smoking status: Never Smokeless tobacco: Never Vaping Use Vaping status: Never Used Substance Use Topics Alcohol use: No Drug use: Never Review of Systems Constitutional: Negative for chills and fever. HENT: Negative for congestion, ear pain and sore throat. Respiratory: Negative for cough and shortness of breath. Cardiovascular: Negative for chest pain. Gastrointestinal: Negative for diarrhea and vomiting. Genitourinary: Positive for dysuria. Psychiatric/Beha (more content not included)... [facility] 01-05-2025 History of Presen t illness Narrative [facility] Subjective Keisha Red is a 79 year old female. Patient presents with: Urinary Problem: Having balance issues, increased confusion x 4 days HPI 79-year-old female presents for concern for UTI. Presents with granddaughter. Patient states that yesterday evening she noticed her urine was white. She states today it was darker and cloudy. Granddaughter states she has been a little more confused than normal recently and seemed off balance for the past few weeks. She was seen in the ER yesterday evening after she had a fall earlier this week for her shoulder pain. Patient has had no falls since. She is alert and oriented x 3 currently. She denies any fevers, abdominal pain, vomiting or back pain. No other complaint. PAST MEDICAL HISTORY Diagnosis Date Allergic rhinitis, [...] Right shoulder s/p fall with reduction at [facility] Type II or unspecified type diabetes [...] Amoxicillin, Aspirin, and Sulfa (Sulfonamide Antibiotics) MEDICATIONS sertraline (ZOLOFT) 50 mg tablet Take 1 tablet by mouth once daily. Please take half pill for a week and then increase to a full pill donepezil (ARICEPT) 5 mg tablet Take 1 tablet by mouth daily with breakfast. diclofenac (VOLTAREN ARTHRITIS PAIN) 1 % topical gel Apply 2 g to affected area four times daily. Takes as needed Magnesium Oxide 250 mg magnesium tab Take 1 tablet by mouth daily at bedtime. Cholecalciferol, Vitamin D3, 50 mcg (2,000 unit) cap Take 1 capsule by mouth once daily. cyanocobalamin (VITAMIN B-12) 1,000 mcg tab Take 1 tablet by mouth once daily. gabapentin (NEURONTIN) 300 mg capsule Take 2 capsules by mouth daily at bedtime AND 1 capsule every morning. Do all this for 180 days. glimepiride (AMARYL) 2 mg tablet Take 1 tablet by mouth two times a day with meals. oxyCODONE IR (ROXICODONE) 5 mg immediate release tablet Take by mouth every 8 hours as needed for pain. Managed by Dr. Mora, Pain Management manages albuterol HFA (PROAIR HFA) 90 mcg/actuation inhaler Inhale 2 Puffs as instructed every 4 hours as needed for wheezing/shortness of breath. 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 warfarin (COUMADIN) 5 mg tablet Take 1 tablet by mouth once daily. montelukast (SINGULAIR) 10 mg tablet Take 10 mg by mouth daily at bedtime. atorvastatin (LIPITOR) 10 mg tablet Take 1 tablet by mouth once daily. TENS unit and electrodes cmpk 1 Each once daily. tens unit electrodes (TENS UNITS ELECTRODES) 2X2 pads Change pad every month as indicated triamcinolone acetonide (KENALOG) 0.1 % cream Apply 1 application to affected area three times daily as needed. For rash on extremities and leg blood sugar diagnostic (BLOOD GLUCOSE TEST) test strip Test blood sugar(s) 1 times daily. Dx: Type 2 DM - Controlled E11.9 Insulin: No Lancets lancets Test blood sugar(s) 1 times daily. Dx: Type 2 DM - Controlled E11.9 Insulin: No fluticasone-vilanterol (BREO ELLIPTA) 100-25 mcg/dose inhaler Inhale 1 Inhalation as instructed once daily. (Patient not taking: Reported on 11/10/2024) FAMILY HISTORY Problem Relation Age of Onset Diabetes Mother Coronary Artery Disease Father Cancer Sister lung Dementia Brother Migraines Daughter Migraines Son other (nephrolithiasis) Son Hypertension Son Social History Tobacco Use Smoking status: Never Smokeless tobacco: Never Vaping Use Vaping status: Never Used Substance Use Topics Alcohol use: No Drug use: Never Review of Systems Constitutional: Negative for chills and fever. HENT: Negative for congestion, ear pain and sore throat. Respiratory: Negative for cough and shortness of breath. Cardiovascular: Negative for chest pain. Gastrointestinal: Negative for diarrhea and vomiting. Genitourinary: Positive for dysuria. Psychiatric/Behavioral: Positive for confusion. Objective BP 135/86 Pulse 83 Temp 36.3 C (97.4 F) Resp 20 Wt 86 kg (189 lb 9.5 oz) SpO2 97% BMI 30.60 kg/m Physical Exam Vitals and nursing note reviewed. Constitutional: General: She is not in acute distress. Appearance: Normal appearance. She is not toxic-appearing. HENT: Nose: Nose normal. Mouth/Throat: Mouth: Mucous membranes are moist. Eyes: Conjunctiva/sclera: Conjunctivae normal. Cardiovascular: Rate and Rhythm: Normal rate and regular rhythm. Pulmonary: Effort: Pulmonary effort is normal. Breath sounds: Normal breath sounds. Abdominal: General: Abdomen is flat. Palpations: Abdomen is soft. Tenderness: There is no abdominal tenderness. There is no right CVA tenderness, left CVA tenderness, guarding or rebound. Skin: General: Skin is warm and dry. Neurological: Mental Status: She is alert and oriented to person, place, and time. Sensory: Sensation is intact. Motor: Motor function is intact. No weakness. Gait: Gait is intact. Comments: Normal gait. Alert and oriented x 3. ASSESSMENT/PLAN: 1. Urinary tract infection with hematuria, site unspecified - ICD9: 599.0, 599.70, ICD10: N39.0, R31.9 (primary diagnosis) acute - UA positive for trae esterase, hematuria, proteinuria, and nitrates - Send urine for culture -Creatinine clearance calculated from labs from 12/07/2024. Creatinine clearance 77 - Begin treatment with Macrobid 100 mg BID for 5 days - Patient education for prevention given 2. Dysuria - ICD9: 788.1, ICD10: R30.0 - UA DIP, URINE (POC) - BACTERIAL CULTURE, URINE Diagnosis and treatment plan were discussed and questions were answered to the patient's satisfaction. Pt acknowledged understanding of concepts and follow up plan. Specific signs and symptoms that would indicate the need for higher level of care were discussed in detail warranting prompt ER evaluation. GREGORY Serrato History and Record Review Clinical information obtained from an independent historian. History obtained from or confirmed by: family member. External record(s) reviewed: prior labs/imaging. Findings from review of prior labs/imaging: Previous Renal Function Panel Reviewed 03/22/2024: BUN 10; Creatinine 0.84; Estimated Glomerular Filtration Rate 72 12/07/2024: BUN 16; Creatinine 0.83; Estimated Glomerular Filtration Rate 73 Differential Diagnoses - UTI is more likely for the following reason(s): suggested by H&P and consistent with laboratory studies - Pyelonephritis is less likely for the following reason(s): H&P not suggestive - Nephrolithiasis is less likely for the following reason(s): H&P not suggestive Disposition The patient was discharged. Procedures documented in this encounter [facility] 01-04-2025 Discharge summary [facility] 01-04-2025 Radiology Diagnostic study note [facility] Imaging Services [address], [place] [id number] Humerus min 2 Views MR#: [id number] Acct: [id number] Name: KEISHA RED Rep #: [id number] : 1945 F 79 From: Filiberot Vo DO PCP: Dr. Joon Lopez MD Status: RE ER Study:Humerus min 2 Views Date of Exam: 01/04/25 Exam# [id number] Ordering Dr: Manuel Sanchez MD PROCEDURE: HUMERUS MIN 2 VIEWS REASON FOR EXAM: PAIN, TRAUMA TECHNIQUE: Two views of the left humerus COMPARISON: None. FINDINGS: See impression RAD/Humerus min 2 Views IMPRESSION: Negative for acute fracture or dislocation. Mild glenohumeral and elbow osteoarthritis. Reading Location: [facility] CC: Dr. Manuel Sanchez MD; Dr. Joon Lopez MD ~ Parquet Floor Layer'S Helper: Signed [facility] 01-04-2025 Radiology Diagnostic study note [facility] Imaging Services [address] [place] [address] Shoulder min 2 Views MR#: [id number] Acct: [id number] Name: KEISHA RED Rep #: [id number] : 1945 F 79 From: Filiberto Vo DO PCP: Dr. Joon Lopez MD Status: LA E ER Study:Shoulder min 2 Views Date of Exam: 01/04/25 Exam# [id number] Ordering Dr: Provider ,Ed P. PROCEDURE: Left shoulder radiographs REASON FOR EXAM: PAIN TECHNIQUE: Four views of the left shoulder COMPARISON: 08/20/2024 FINDINGS: See impression RAD/Shoulder min 2 Views IMPRESSION: Negative for acute fracture or dislocation. Mild glenohumeral and acromioclavicular joint osteoarthritis. Reading Location: [facility] CC: Dr. Joon Lopez MD; ED PHYSICIAN PROVIDER ~ Parquet Floor Layer'S Helper: Signed [facility] 01-04-2025 Discharge summary Note Date/Time January 04, 2025 7:43pm [facility] Medical Records Department [address] [place] [id number] Emergency Department Summary 01/04/25 MR#: [id number] Acct: [id number] Name: KEISHA RED Rep #:[id number] : 1945 79 From: Manuel Sanchez MD PCP: Dr. Joon Lopez MD Status:RE G ER Location: ED HPI History of Present Illness Chief Complaint: Upper Extremity Injury Narrative Narrative: 79-year-old female, [id number], presents with her daughter because of injury to her left shoulder and left humerus that she sustained a few days ago. She relates history that she has had frequent falls in the past. She is currently enrolled in pain management and had an injection of her back by Dr. Hodges. That was a week or so ago, but now she states that this is caused her to have a few falls. She has pain in her left shoulder and mid humerus. She has pain with movement as well. She has Percocet which she can take but she hasnot taken any today. She presents with her daughter because of the injury to her left shoulder and humerus. PFSH PFSH Medical History Alzheimer dementia USP (current) use of anticoagulants RAMESH (obstructive sleep apnea) Asthma History of complete heart block Other intervertebral disc degeneration, lumbar region Low back pain History of fall Non-pressure chronic ulcer of other part of left foot with fat layer exposed Pain in left foot Cardiac murmur Left knee sprain Falls Abnormal EKG Ulcer of right lower extremity with fat layer exposed Atrial flutter Obesity Pulmonary hypertension Subtherapeutic international normalized ratio (INR) Hyperlipidemia Type 2 diabetes mellitus Wears glasses Wears dentures Post-menopausal Sore on leg Arthritis Dietary restriction CPAP (continuous positive airway pressure) dependence Non-smoker Shortness of breath on exertion Cardiology follow-up encounter History of stress test History of echocardiogram Ureteral mass Hydronephrosis, right Fracture of left elbow Cervical strain, acute COVID-19 Essential hypertension Hyperlipidemia DDD (degenerative disc disease) Shoulder dislocation Contact dermatitis and other eczema Allergic rhinitis 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 Obesity Diabetes mellitus Hypersomnia Other secondary pulmonary hypertension BMI 33.0-33.9,adult Hx of bladder infections Atrial fibrillation Home Medications ?Medication ?Instructions ?Recorded ?Last Taken ?Type warfarin 5 mg tablet 5 mg PO DAILY blood thinner 11/18/18 06/29/24 History atorvastatin 10 mg tablet 10 mg PO QHS cholesterol 05/03/24 History gabapentin 300 mg capsule 300 mg PO BREAKFAST nerve pa in 08/04/22 07/04/24 History gabapentin 300 mg capsule 600 mg PO QHS Neuropathy 08/1605/03/24 History albuterol sulfate 90 mcg/actuation 2 puff inhalation Q 4H PRN 03/04/24 Unknown Rx aerosol inhaler shortness of breath or wheez ing #8.5 grams cholecalciferol (vitamin D3) 50 50 mcg PO DAILY 05/04/24 History mcg (2,000 unit) capsule magnesium oxide 250 mg PO DAILY SUPPLEMENT 0 04/13/24 05/04/24 History mecobalamin (vitamin B12) 1,000 1,000 mcg PO DAILY 05/04/24 History mcg chewable tablet oxybutynin chloride 10 mg 10 mg PO DAILY 04/13/24 Unkn own History tablet,extended release 24 hr acetaminophen 500 mg tablet 1,000 mg (2 x 500 mg) PO Q 8 PRN 05/06/24 Unknown Rx fever or pain #0 tabs glimepiride 2 mg tablet 2 mg PO BID 06/10/24 Unknown History blood-glucose meter (OneTouch #1 ea 07/01/24 Unknown H istory Verio Flex Meter) montelukast 10 mg tablet 10 mg PO QPM #90 tabs Unknown Rx sertraline 50 mg tablet 50 mg PO DAILY 08/20/24 Unkn own History trospium 20 mg tablet 20 mg PO BID 08/20/24 Unknow n History docusate sodium 100 mg capsule 100 mg PO BID #60 caps 08/21/24 Unknown Rx (Colace) oxycodone-acetaminophen 5 mg-325 1 tab PO Q6H PRN PRN Pain 3 days 08/21/24 Unknown Rx mg tablet #12 TABLETS donepezil 5 mg tablet mg PO DAILY 12/09/24 Unknown History Allergy/AdvReac Type Severity Reaction Status Date / Time amoxicillin Allergy Severe Hives Verified 01/04/25 17:19 aspirin Allergy Severe Hives, SOB Verified 01/04/25 17:19 Sulfa (Sulfonamide Allergy Severe Hives Verified 01/04/25 17:19 Antibiotics) Family History Mother Diabetes Father CAD (coronary artery disease) Sister Lung cancer Son Kidney stone Surgical History Presence of permanent cardiac pacemaker (04/01/19) S/P ablation of atrial flutter (04/01/19) History of cystoscopy Hx of right cataract extraction Hx of left cataract extraction History of kidney surgery History of appendectomy Social History household members: none housing: house number of children: 3 current occupational status: retired Smoking Status: Never smoker alcohol intake: never substance use type: does not use what type of physical activity do you participate in: none do you feel safe at home: Yes ROS ROS ED ROS Narrative Review of systems positive for left shoulder and midshaft humerus pain. Pain worse with movement. Denies other injury. No neck pain. No fevers or chills. EXAM Physical Exam Narrative Exam Narrative: Patient examined in bernardo chair secondary to bed availability and acuity. Afebrile. Vital signs noted. Nontoxic-appearing. There is diffuse tenderness to palpation throughout the left shoulder. No clinical dislocation. Mild tenderness to palpation of the left midshaft humerus. No crepitance. Neurovascularly intact distally. Hand strength 5 out of 5. Palpable radial pulse, left. Const Vital Signs: 01/04/25 17:16 Temperature 97.5 F L Temperature Source Temporal Pulse Rate 74 Respiratory Rate 15 Blood Pressure 144/68 H Blood Pressure Mean 93 Pulse Ox 98 Oxygen Delivery Method Room Air MDM MDM MDM Narrative Medical decision making narrative: As her fall was a few days ago, differential diagnosis does include fracture versus contusion versus ligamentous sprain versus muscle strain. She was given oxycodone here. X-rays of the left shoulder obtained through protocol and interpreted by myself independently which shows arthritis but no evidence of an acute dislocation or fracture. I reviewed the radiology report which confirms my independent interpretation. Clinically I do not think that she has a fracture of the midshaft humerus, and I have very low suspicion for necrotizing fasciitis, so x-ray of the humerus was added as this is her dominant hand. On my independent interpretation of the x-rays of her left humerus, I see no evidence of an acute fracture. I reviewed the radiology report which confirms my independent interpretation. 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 At this point in time I feel she can be discharged to follow-up with her primarycare provider as well as her pain management doctor. She will continue her Percocet as previously directed for pain. Disposition is discharged home in stable condition. Radiography Diagnostic Testing: Clinical Impression(s) from Imaging Studies Shoulder X-Ray 01/04/25 17:31 IMPRESSION: Negative for acute fracture or dislocation. Mild glenohumeral and acromioclavicular joint osteoarthritis. Reading Location: [facility] Discharge Plan Triage Chief Complaint: Upper Extremity Injury ED Provider: Manuel Sanchez Dx/Rx/DC Orders Clinical Impression: Arthritis of left shoulder, Arm pain, left Instructions: ED Osteoarthritis, ED Shoulder Pain, Uncertain Cause Prescriptions: No Action albuterol sulfate 90 mcg/actuation HFA aerosol inhaler 2 puff INHALATION Q4H PRN (Reason: shortness of breath or wheezing) Qty: 8.5 6RF Rx Instructions: administer with spacer oxybutynin chloride 10 mg tablet extended release 24hr 10 mg PO DAILY cholecalciferol (vitamin D3) 50 mcg (2,000 unit) capsule 50 mcg PO DAILY mecobalamin (vitamin B12) 1,000 mcg tablet,chewable 1,000 mcg PO DAILY glimepiride 2 mg tablet 2 mg PO BID (DME) blood-glucose meter [OneTouch Verio Flex meter] Misc See Rx Instructions .ROUTE .MEDSUPPLY Qty: 1 Patient Comments: [NO ORIGINAL SIG] Rx Instructions: As directed donepezil 5 mg tablet PO DAILY warfarin 5 MG tablet 5 mg PO DAILY Protocol: Dose Management Condition: Thursday Dose/Route: 0 mg Instruction: 0 tablets Condition: Thursday Dose/Route: 0 mg Instruction: 0 tablets Condition: Thursday Dose/Route: 0 mg Instruction: 0 tablets Condition: Thursday Dose/Route: 5 mg Instruction: 1 x 5 mg tablet Condition: Dose/Route: 5 mg Instruction: 1 x 5 mg tablet Condition: Thursday Dose/Route: 5 mg Instruction: 1 x 5 mg tablet Condition: Thursday Dose/Route: 5 mg Instruction: 1 x 5 mg tablet Protocol Text: Adjustment Start Date: Thursday11/01/24 INR Value: 1.5 INR Date: 11/01/24 Recheck Date: 11/09/24 atorvastatin 10 MG tablet 10 mg PO QHS gabapentin 300 mg capsule 600 mg PO QHS Patient Comments: Take 2 capsules by mouth daily at bedtime AND 1 capsule every morning. gabapentin 300 mg capsule 300 mg PO BREAKFAST Patient Comments: Take 2 capsules by mouth daily at bedtime AND 1 capsule every morning. Rx Instructions: 300 mg orally; magnesium oxide 400 mg magnesium tablet 250 mg PO DAILY acetaminophen 500 mg Tablet 1,000 mg PO Q8 PRN (Reason: fever or pain) Qty: 0 0RF sertraline 50 mg tablet 50 mg PO DAILY trospium 20 mg tablet 20 mg PO BID oxycodone-acetaminophen 5-325 mg tablet 1 tab PO Q6H PRN PRN (Reason: Pain) 3 Days Qty: 12 0RF docusate sodium [Colace] 100 mg capsule 100 mg PO BID Qty: 60 0RF montelukast 10 mg tablet 10 mg PO QPM Qty: 90 3RF Primary Care Provider: Joon Lopez Referrals: Joon Lopez MD [Primary Care Provider] - 1 Week if not improving Activity Restrictions/Additional Instructions: Follow-up with your pain management doctor soon as possible. Take your Percocetas previously directed for pain. Return with new or worsening symptoms. Your x-rays were negative for fracture today, but you do have arthritis in your left shoulder. Print Language: Belizean Disposition Disposition: Home, Self Care What to do if you have Problems For any increased pain, shortness of breath, bleeding, nausea or vomiting, chestpain, or any unexpected problems, contact your Primary Care Provider. Call [facility] ([phone]) or report to the closest Emergency Room. Call 911 if necessary. 01/04/251942 <Electronically signed by Manuel Sanchez MD> Cosigner Signature (if applicable): CC: Dr. Joon Lopez MD ~ Signed [facility] Work Phone: 1(733) 302-383403-12-2025 Telephone encounter Note* Telephone Encounter - Ira Chicas - 01/04/2025 12:59 PM EDT Prescription Refill Information The patient has been identified by name and date of : Yes Caregiver verified no other encounters exist for this prescription request: Yes Caregiver confirmed with patient/requestor that no other refills are due, in the near future, with this provider at this time: Yes The last office visit in the department: Does the patient have a future office visit with this provider/department: Yes Requested Prescriptions Pending Prescriptions Disp Refills sertraline (ZOLOFT) 50 mg tablet 30 tablet 3 Sig: Take 1 tablet by mouth once daily. Please take half pill for a week and then increase to a full pill Ira De Leon January 04, 2025 12:59 PM [facility]03-12-2025 Miscellaneous Notes* Telephone Encounter - Ira Chicas - 01/04/2025 12:59 PM EDT Prescription Refill Information The patient has been identified by name and date of : Yes Caregiver verified no other encounters exist for this prescription request: Yes Caregiver confirmed with patient/requestor that no other refills are due, in the near future, with this provider at this time: Yes The last office visit in the department: Does the patient have a future office visit with this provider/department: Yes Requested Prescriptions Pending Prescriptions Disp Refills sertraline (ZOLOFT) 50 mg tablet 30 tablet 3 Sig: Take 1 tablet by mouth once daily. Please take half pill for a week and then increase to a full pill Ira De Leon January 04, 2025 12:59 PM [facility] Telephone encounter Note * Telephone Encounter - Ira Peralta RN - 12/27/2024 3:32 PM EST The patient has been identified by name and date of : Yes Caregiver verified no other encounters exist for this prescription request: Yes Caregiver confirmed with patient/requestor that no other refills are due, in the near future, with this provider at this time: Yes The last office visit in the department: 12/07/2024 Does the patient have a future office visit with this provider/department: Yes 03/10/2025 Requested Prescriptions Pending Prescriptions Disp Refills donepezil (ARICEPT) 5 mg tablet 30 tablet 2 Sig: Take 1 tablet by mouth daily with breakfast. Ira Peralta RN [facility]03-04-2025 Miscellaneous Notes* Telephone Encounter - Ira Peralta RN - 12/27/2024 3:32 PM EST The patient has been identified by name and date of : Yes Caregiver verified no other encounters exist for this prescription request: Yes Caregiver confirmed with patient/requestor that no other refills are due, in the near future, with this provider at this time: Yes The last office visit in the department: 12/07/2024 Does the patient have a future office visit with this provider/department: Yes 03/10/2025 Requested Prescriptions Pending Prescriptions Disp Refills donepezil (ARICEPT) 5 mg tablet 30 tablet 2 Sig: Take 1 tablet by mouth daily with breakfast. Ira Peralta RN [facility] Evaluation note* Diagnosis Onset Date Resolution Status Admit Date Asthma chronic December 09, 2024 7:50am RAMESH (obstructive sleep apnea) chronic December 09 7:50am [facility] Work Phone: [phone]) 870-269702-12-2025 Instructions* Patient Instructions* Joon Lopez MD - 12/07/2024 11:13 AM EST - Take magnesium at bedtime to help with sleep. - Use Voltaren gel as needed for sprains and painful knees. - Follow sleep hygiene tips: - Set a regular bedtime around 9:00-9:30 PM. - Avoid electronics (TV, computers, phones) at least one hour before bedtime. - Use blackout shades to block out light from windows. - Avoid naps longer than an hour and not after 3:00 PM. - Monitor your weight and try to maintain a healthy diet; reduce popcorn consumption. - Complete lab tests (CBC, CMP, A1c, urine test, and vitamin D) today; fasting is not required. - Follow up with Dr. Sadler on December 14 for further evaluation of sleep issues and any otherconcerns. Sleep Hygiene and Good Sleep Habits Establish a regular routine that includes going to bed and getting up at the same time every day, even on weekends. Maintaining a consistent sleep-wake cycle is the gracia to better health overall. Get an adequate amount of sleep every night. Determine the amount of sleep you need by keeping track of how long you sleep without using an alarm clock for a week. Maintain this personal sleep requirement. Go to bed when you are sleepy. If you have difficulty falling asleep or wake up shortly after goingto sleep, leave the bedroom and read quietly or do some other relaxing activity. Avoid bright lights as this can cue your wake cycle. Develop sleep rituals before going to bed. Do the same things in the same order before going to bedto cue your body to slow down and relax. Avoid stress and worries at bedtime. Address tomorrow's activities, concerns, or distractions earlier in the day. Certain activities, such as listening to soft music, reading, or taking a warm bath, can help you wind down. Use your bed for sleeping and sex only. Often, doing other activities in bed like watching TV, paying bills, or working only serve to initiate worries and concerns. Let your mind associate the bed with sleeping, relaxing, and pleasure. Avoid heavy meals late in the evening; similarly, avoid going to bed hungry. A light snack, especially dairy foods, can help you sleep. Reduce your intake of caffeine and nicotine 4-6 hours before going to sleep. Stimulants interfere with your ability to fall asleep and progress into deep sleep. 200mg caffeine (a large [employer] coffee) taken at 8 AM will impair the sleep architecture that night. Avoid alcohol 4-6 hours before bedtime. As a depressant that slows brain activity, alcohol may initially make you tired, but you will end up having fragmented sleep. In addition, being tired intensifies the effects of alcohol. Alcohol also aggravates snoring and sleep apnea particularly in men. Exercise regularly. Regular exercise, even for 20 minutes, 3 times a week, promotes deep sleep. Don't nap for more than 30 minutes or after 3 PM. Avoiding naps all together will ensure that you are tired at night. Longer naps disrupt the body's ability to stay asleep. Maintain a dark, quiet room to sleep in at a temperature with which you are comfortable. Use sleeping aids conservatively, and avoid using them for more than one or two nights per month. Avoid sleeping pills altogether if you have obstructive sleep apnea because it can be a deadly combination. TIPS FOR A BETTER NIGHT OF SLEEP BEFORE GETTING INTO BED: -Establish a regular routine for bedtime. -Create a positive sleep environment. -Relax before getting into bed. -Avoid alcohol, smoking, caffeine for at least a few hours before bedtime. -Do not go to bed unless you are sleepy. WHILE IN BED: -Turn your clock around (or cover it) and use your alarm if needed. - If you can't fall asleep in 20 minutes (based on your internal sense of time), get out of bed anddo something relaxing or boring (reading, listening to music, etc). Return to bed only when sleepy. -Use your bed only for sleep and sex. IN THE MORNING AND DURING THE DAYTIME: -Wake up at the same time every morning, even on weekends. -Avoid naps during the day. -Avoid caffeinated beverages and food in the evening. -Exercise regularly but not within 4 hours of bedtime. [facility] NoteHNO ID: [id number] Author: JOON LOPEZ MD Service: ? Author Type: Physician Type: Progress Notes Filed: 12/07/2024 11:29 Note Text: This note was created using [employer]. Subjective Keisha Red is a 79 year old female. Patient presents with: F/U Diabetes 3 Month: having sleep issues- problems going to sleep SUBJECTIVE: Keisha Red is a 79 year old year old lady here today for 3 month follow up appointment for review of medical conditions. Keisha Red is a 79-year-old female, with a history of insomnia, presenting for a 3-month follow-up visit. Keisha reports difficulty sleeping over the past month, stating, I can't sleep. She has been going to bed around 1830 but wakes up by 2300 and is unable to return to sleep. She has recently tried going to bed later, around 7839-5655, and notes some improvement in sleep quality. Last night, she went to bed at 2130 and reports, I slept last night. She denies having clocks in her bedroom but mentions that lights coming through the windows sometimes keep her awake. She does not take naps during the day. She is currently taking magnesium, which is administered by her daughter. Keisha also mentions weight fluctuations, noting a recent increase to 179 lbs from 167 lbs at her last doctor's visit. She attributes this to increased popcorn consumption. She denies any leg swelling or pruritus. PAST MEDICAL HISTORY Diagnosis Date Allergic rhinitis, [...] Right shoulder s/p fall with reduction at [facility] Type II or unspecified type diabetes mellitus without mention of complication, not stated as uncontrolled Unspecified asthma(493.90) Unspecified essential hypertension Current Outpatient Medications Medication Sig diclofenac (VOLTAREN ARTHRITIS PAIN) 1 % topical gel Apply 2 g to affected area four times daily. Takes as needed Magnesium Oxide 250 mg magnesium tab Take 1 tablet by mouth daily at bedtime. Cholecalciferol, Vitamin D3, 50 mcg (2,000 unit) cap Take 1 capsule by mouth once daily. cyanocobalamin (VITAMIN B-12) 1,000 mcg tab Take 1 tablet by mouth once daily. gabapentin (NEURONTIN) 300 mg capsule Take 2 capsules by mouth daily at bedtime AND 1 capsule every morning. Do all this for 180 days. glimepiride (AMARYL) 2 mg tablet Take 1 tablet by mouth two times a day with meals. donepezil (ARICEPT) 5 mg tablet Take 1 tablet by mouth daily with breakfast. oxyCODONE IR (ROXICODONE) 5 mg immediate release tablet Take by mouth every 8 hours as needed for pain. Managed by Dr. Mora, Pain Management manages sertraline (ZOLOFT) 50 mg tablet Take 1 tablet by mouth once daily. Please take half pill for a week and then increase to a full pill fluticasone-vilanterol (BREO ELLIPTA) 100-25 mcg/dose inhaler Inhale 1 Inhalation as instructed once daily. (Patient not taking: Reported on 11/10/2024) albuterol HFA (PROAIR HFA) 90 mcg/actuation inhaler Inhale 2 Puffs as instructed every 4 hours as needed for wheezing/shortness of breath. 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 warfarin (COUMADIN) 5 mg tablet Take 1 tablet by mouth once daily. montelukast (SINGULAIR) 10 mg tablet Take 10 mg by mouth daily at bedtime. atorvastatin (LIPITOR) 10 mg tablet Take 1 tablet by mouth once daily. TENS unit and electrodes cmpk 1 Each once daily. tens unit electrodes (TENS UNITS ELECTRODES) 2X2 pads Change pad every month as indicated triamcinolone acetonide (KENALOG) 0.1 % cream Apply 1 application to affected area three times daily as needed. For rash on extremities and leg blood sugar diagnostic (BLOOD GLUCOSE TEST) test strip Test blood sugar(s) 1 times daily. Dx: Type 2 DM - Controlled E11.9 Insulin: No Lancets lancets Test blood sugar(s) 1 times daily. Dx: Type 2 DM - Controlled E11.9 Insulin: No No current facility-administered medications for this visit. Review of Systems Objective BP 112/62 (BP Site: Right Arm, BP Position: Sitting, BP Cuff Size: Large Adult) Pulse 89 Temp 36.4 ?C (97.6 ?F) (Temporal) Resp 16 Ht 167.6 cm (5' 6) Wt 81.4 kg (179 lb 7.3 oz) SpO2 96% BMI 28.96 kg/m? Physical Exam Constitutional: Appearance: Normal appearance. HENT: Head: Normocephalic. Eyes: Conjunctiva/sclera: Conjunctivae normal. Cardiovascular: Rate and Rhythm: Normal rate and regular rhythm. Heart sounds: Normal heart sounds. Pulmonary: Effort: Pulmonary effort is normal. Breath sounds: Normal breath sounds. Musculoskeletal: Right lowe (more content not included)...[facility]02-12-2025 History of Present illness Narrative* Joon Lopez MD - 12/07/2024 11:07 AM EST This note was created using [employer]. Subjective Keisha Red is a 79 year old female. Patient presents with: F/U Diabetes 3 Month: having sleep issues- problems going to sleep SUBJECTIVE: Keisha Red is a 79 year old year old lady here today for 3 month follow up appointment for review of medical conditions. Keisha Red is a 79-year-old female, with a history of insomnia, presenting for a 3-month follow-up visit. Keisha reports difficulty sleeping over the past month, stating, I can't sleep. She has been going to bed around 1830 but wakes up by 2300 and is unable to return to sleep. She has recently tried going to bed later, around 5280-6055, and notes some improvement in sleep quality. Last night, she wentto bed at 2130 and reports, I slept last night. She denies having clocks in her bedroom but mentions that lights coming through the windows sometimes keep her awake. She does not take naps during the day. She is currently taking magnesium, which is administered by her daughter. Keisha also mentions weight fluctuations, noting a recent increase to 179 lbs from 167 lbs at her last doctor's visit. She attributes this to increased popcorn consumption. She denies any leg swelling or pruritus. PAST MEDICAL HISTORY Diagnosis Date Allergic rhinitis, [...] Right shoulder s/p fall with reduction at [facility] Type II or unspecified type diabetes mellitus without mention of complication, not stated as uncontrolled Unspecified asthma(493.90) Unspecified essential hypertension Current Outpatient Medications Medication Sig diclofenac (VOLTAREN ARTHRITIS PAIN) 1 % topical gel Apply 2 g to affected area four times daily. Takes as needed Magnesium Oxide 250 mg magnesium tab Take 1 tablet by mouth daily at bedtime. Cholecalciferol, Vitamin D3, 50 mcg (2,000 unit) cap Take 1 capsule by mouth once daily. cyanocobalamin (VITAMIN B-12) 1,000 mcg tab Take 1 tablet by mouth once daily. gabapentin (NEURONTIN) 300 mg capsule Take 2 capsules by mouth daily at bedtime AND 1 capsule everymorning. Do all this for 180 days. glimepiride (AMARYL) 2 mg tablet Take 1 tablet by mouth two times a day with meals. donepezil (ARICEPT) 5 mg tablet Take 1 tablet by mouth daily with breakfast. oxyCODONE IR (ROXICODONE) 5 mg immediate release tablet Take by mouth every 8 hours as needed for pain. Managed by Dr. Mora, Pain Management manages sertraline (ZOLOFT) 50 mg tablet Take 1 tablet by mouth once daily. Please take half pill for a week and then increase to a full pill fluticasone-vilanterol (BREO ELLIPTA) 100-25 mcg/dose inhaler Inhale 1 Inhalation as instructed once daily. (Patient not taking: Reported on 11/10/2024) albuterol HFA (PROAIR HFA) 90 mcg/actuation inhaler Inhale 2 Puffs as instructed every 4 hours as needed for wheezing/shortness of breath. 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 warfarin (COUMADIN) 5 mg tablet Take 1 tablet by mouth once daily. montelukast (SINGULAIR) 10 mg tablet Take 10 mg by mouth daily at bedtime. atorvastatin (LIPITOR) 10 mg tablet Take 1 tablet by mouth once daily. TENS unit and electrodes cmpk 1 Each once daily. tens unit electrodes (TENS UNITS ELECTRODES) 2X2 pads Change pad every month as indicated triamcinolone acetonide (KENALOG) 0.1 % cream Apply 1 application to affected area three times daily as needed. For rash on extremities and leg blood sugar diagnostic (BLOOD GLUCOSE TEST) test strip Test blood sugar(s) 1 times daily. Dx: Type 2 DM - Controlled E11.9 Insulin: No Lancets lancets Test blood sugar(s) 1 times daily. Dx: Type 2 DM - Controlled E11.9 Insulin: No No current facility-administered medications for this visit. Review of Systems Objective BP 112/62 (BP Site: Right Arm, BP Position: Sitting, BP Cuff Size: Large Adult) Pulse 89 Temp 36.4 C (97.6 F) (Temporal) Resp 16 Ht 167.6 cm (5' 6) Wt 81.4 kg (179 lb 7.3 oz) SpO2 96% BMI 28.96 kg/m Physical Exam Constitutional: Appearance: Normal appearance. [...] Judgment: Judgment normal. Assessment and Plan # Controlled type 2 diabetes mellitus without complication, without long-term current use of insulin (HCC) (E11.9) - Clinically stable on current regimen. - Ordered HbA1c to be drawn today. - Continue current management and follow-up with endocrinology as scheduled. # Essential hypertension (I10) - Blood pressure well-controlled on current medication regimen. - Continue current antihypertensive therapy. # Mixed hyperlipidemia (E78.2) - Postponed fasting lipid panel for 6 months. - Continue current lipid-lowering therapy. # Mild intermittent asthma without complication (J45.20) - No acute exacerbations reported. - Continue current asthma management plan. # Chronic pain of left knee (M25.562) # Sprain of left knee, unspecified ligament, initial encounter (S83.92XA) - Managed with Voltaren gel; prescription sent to [facility]. - Continue topical NSAID application as needed for pain control. # Hypomagnesemia (E83.42) - Taking magnesium supplement; instructed to take at bedtime. - Prescription for magnesium sent to [facility]. # Vitamin D deficiency (E55.9) - Ordered vitamin D level to be drawn today. - Prescription for vitamin D supplementation refilled. # B12 deficiency (E53.8) - Prescription for B12 supplementation refilled. # Insomnia, unspecified type (G47.00) - Onset approximately one month ago, characterized by difficulty maintaining sleep after initial sleep onset. - Educated on sleep hygiene practices, including setting a regular bedtime around 9:00-9:30 PM, avoiding electronics an hour before bedtime, and using blackout shades to minimize light exposure. - Advised to avoid naps longer than one hour and to maintain a consistent wake- up time. - Will reassess sleep patterns and consider further interventions if necessary. # Encounter for therapeutic drug monitoring (Z51.81) - Ordered CMP to be drawn today. - Monitoring of current medications including gabapentin, glimepiride, Singulair, Zoloft, and oxycodone. - Prescriptions refilled as needed. Joon Lopez MD documented in this [facility] [place] Telephone encounter Note * Telephone Encounter - Jhoana Pedersen LPN - 11/25/2024 1:14 PM EST Spoke with pt gave information provided. Pt voices understanding. [facility] Miscellaneous Notes* Telephone Encounter - Jhoana Pedersen LPN - 11/25/2024 1:14 PM EST Spoke with pt gave information provided. Pt voices understanding. * Telephone Encounter - Joon Lopez MD - 11/25/2024 12:50 PM EST Has labs ordered for November appointment. Added Vitamin D level since was really low on last check The following approved medication requests have been transmitted electronically. Requested Prescriptions Signed Prescriptions Disp Refills glimepiride (AMARYL) 2 mg tablet 180 tablet 1 Sig: Take 1 tablet by mouth two times a day with meals. Authorizing Provider: JOON LOPEZ MD * Telephone Encounter - Carolina Kuo LPN - 11/25/2024 12:03 PM EST Prescription Refill Information The patient has been identified by name and date of : Yes Caregiver verified no other encounters exist for this prescription request: Yes Caregiver confirmed with patient/requestor that no other refills are due, in the near future, with this provider at this time: Yes The last office visit in the department: 09/09/24 Does the patient have a future office visit with this provider/department: Yes 12/07/24 Requested Prescriptions Pending Prescriptions Disp Refills glimepiride (AMARYL) 2 mg tablet 180 tablet 1 Sig: Take 1 tablet by mouth two times a day with meals. Carolina Kuo LPN November 25, 2024 12:04 PM documented in this encounterSelect [facility] [place] Telephone encounter Note * Telephone Encounter - Joon Lopez MD - 11/25/2024 12:50 PM EST Has labs ordered for November appointment. Added Vitamin D level since was really low on last check The following approved medication requests have been transmitted electronically. Requested Prescriptions Signed Prescriptions Disp Refills glimepiride (AMARYL) 2 mg tablet 180 tablet 1 Sig: Take 1 tablet by mouth two times a day with meals. Authorizing Provider: JOON LOPEZ MD [facility] Telephone encounter Note* Telephone Encounter - Carolina Kuo LPN - 11/25/2024 12:03 PM EST Prescription Refill Information The patient has been identified by name and date of : Yes Caregiver verified no other encounters exist for this prescription request: Yes Caregiver confirmed with patient/requestor that no other refills are due, in the near future, with this provider at this time: Yes The last office visit in the department: 09/09/24 Does the patient have a future office visit with this provider/department: Yes 12/07/24 Requested Prescriptions Pending Prescriptions Disp Refills glimepiride (AMARYL) 2 mg tablet 180 tablet 1 Sig: Take 1 tablet by mouth two times a day with meals. Carolina Kuo LPN November 25, 2024 12:04 PM [facility]01-16-2025 Instructions* Patient Instructions* Xochitl Castrejon MD - 11/10/2024 12:05 PM EST We recommended that you take Aricept 5mg tab once a day for the first 12 weeks, then increase the dose to 10mg once per day. Aricept can be taken with or without food. Aricept is well tolerated, although some people may experience nausea, diarrhea, not sleeping well, vomiting, muscle cramps, feeling tired, or not wanting to eat. These side effects were usually mild and temporary. If symptoms continue or become severe, you should stop the medication and contact us at [phone]. documented in this encounterSelect [facility] [place]25 NoteHNO ID: [id number] Author: XOCHITL CASTREJON MD Service: ? Author Type: Physician Type: Progress Notes Filed: 11/10/2024 13:13 Note Text: [facility] Initial Consult Keisha [...] has back pain from degenerative disc disease. She is here to discuss her memory concerns. Last visit when I first saw the patient in August 18 below what her history Here to discuss her memory concerns that [...] management but very few and far between. She is here to see me in Nov 19 for 3-month follow-up. She did get her MRI of the brain done which showed hippocampal volumes in the 1 percentile along with small chronic lacunar infarcts in the cerebellum and mild white matter disease. It also showed significant degenerative changes at C1-C2 and moderate spinal canal stenosis. She still continues to have sleep apnea but is unable to use the sleep machine. There have been no changes in her ADL and IADL performances. Any Family History of dementia? Yes, older brother who is 5 years older to her is currently having dementia Are you or your spouse a ? Yes Long-term Memory: Difficulty remembering distant events from [...] but does not want to use it B-ADLs: (I=independent,A=assistance,D=dependent) ?Bathing: I, Dressing: I, Toileting: I, Transferring:I, Continence: I, Feeding: I, (Gibbons Index): I-ADLs: Ability to use phone: I, sometimes having a hard time figuring out which calls to take Shopping: I, Cooking: A, she has messed up some recipes has cut down a lot, used to do the big turkey at [facility] where the turkey was spoiled and [...] the judgement to fully understand her finances. Reviewed past medical and surgical histories along with social history. Home Meds: Prior to Admission medications : Medication oxyCODONE IR (ROXICODONE) 5 mg immediate release tablet, Sig Take by mouth every 8 hours as needed for pain. Managed by Dr. Mora, Pain Management manages, Start Date , End Date , Taking? Yes, Authorizing Provider Provider, [facility] Medication albuterol HFA (PROAIR HFA) 90 mcg/actuation inhaler, Sig Inhale 2 Puffs as instructed every 4 hours as needed for wheezing/shortness of breath. 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), Start Date 05/27/24, End Date , Taking? Yes, Authorizing Provider Whitney Hammond APRN.RADAR ENGINEERING TEACHER Medication diclofenac (VOLTAREN ARTHRITIS PAIN) 1 % topical gel, Sig Apply 2 g to affected area four times daily. Takes as needed, Start Date (more content not included)...[facility]01-16-2025 History of Present illness Narrative* Xochitl Castrejon MD - 11/10/2024 11:42 AM EST [facility] Initial Consult Keisha Red [...] has back pain from degenerative disc disease. She is here to discuss her memory concerns. Last visit when I first saw the patient in August 18 below what her history Here to discuss her memory concerns that [...] and balance, without a walker if she walksshe tends to move to the left side, and then bumps herself on stuff, she is on oxybutynin and is taking oxycodone for pain management but very few and far between. She is here to see me in Nov 19 for 3-month follow-up. She did get her MRI of the brain done which showed hippocampal volumes in the 1 percentile along with small chronic lacunar infarcts in the cerebellum and mild white matter disease. It also showed significant degenerative changes at C1-C2 and moderate spinal canal stenosis. She still continues to have sleep apnea but is unable to use the sleep machine. There have been no changes in her ADL and IADL performances. Any Family History of dementia? Yes, older brother who is 5 years older to her is currently having dementia Are you or your spouse a ? Yes Long-term Memory: Difficulty remembering distant events from [...] but does not want to use it B-ADLs: (I=independent,A=assistance,D=dependent) ?Bathing: I, Dressing: I, Toileting: I, Transferring:I, Continence: I, Feeding: I, (Gibbons Index): I-ADLs: Ability to use phone: I, sometimes having a hard time figuring out which calls to take Shopping: I, Cooking: A, she has messed up some recipes has cut down a lot, used to do the big turkey at [facility] where the turkey was spoiled and [...] the judgement to fully understand her finances. Reviewed past medical and surgical histories along with social history. Home Meds: Prior to Admission medications : Medication oxyCODONE IR (ROXICODONE) 5 mg immediate release tablet, Sig Take by mouth every 8 hoursas needed for pain. Managed by Dr. Mora, Pain Management manages, Start Date , End Date , Taking? Yes, Authorizing Provider Provider, [facility] Medication albuterol HFA (PROAIR HFA) 90 mcg/actuation inhaler, Sig Inhale 2 Puffs as instructed every 4 hours as needed for wheezing/shortness of breath. 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), Start Date 05/27/24, End Date , Taking? Yes, Authorizing Provider Whitney Hammond APRN.RADAR ENGINEERING TEACHER Medication diclofenac (VOLTAREN ARTHRITIS PAIN) 1 % [...] , Taking? Yes, Authorizing Provider Whitney Hammond APRN.RADAR ENGINEERING TEACHER Medication cyanocobalamin (VITAMIN B-12) 1,000 mcg tab, Sig Take 1 tablet by mouth once daily., Start Date 04/06/24, End Date , Taking? Yes, Authorizing Provider Whitney Hammond APRN.RADAR ENGINEERING TEACHER Medication atorvastatin (LIPITOR) 10 mg tablet, Sig Take 1 tablet by mouth once daily., Start Date 03/22/24, End Date , Taking? Yes, Authorizing Provider Whitney Hammond APRN.RADAR ENGINEERING TEACHER Medication blood sugar diagnostic (BLOOD GLUCOSE TEST) [...] 1 tablet by mouth once daily., Start Date04/06/24, End Date , Taking? , Authorizing Provider Whitney Hammond APRN.RADAR ENGINEERING TEACHER Medication gabapentin (NEURONTIN) 300 mg capsule, Sig Take 2 capsules by mouth daily at bedtime AND1 capsule every morning. Do all this for 180 days., Start Date 03/22/24, End Date 12/16/24, Taking? ,Authorizing Provider Whitney Hammond APRN.RADAR ENGINEERING TEACHER Medication glimepiride (AMARYL) 2 mg tablet, Sig Take 1 tablet by mouth two times a day with meals., Start Date 03/22/24, End Date , Taking? , Authorizing Provider Whitney Hammond APRN.RADAR ENGINEERING TEACHER Medication TENS unit and electrodes cmpk, Sig 1 Each once daily., Start Date 09/10/23, End Date , Taking? , Authorizing Provider Trini Tang APRN.WILDLAND FIREFIGHTER Medication tens unit electrodes (TENS UNITS ELECTRODES) 2X2 pads, Sig Change pad every month as indicated, Start Date 09/10/23, End Date , Taking? , Authorizing Provider Trini Tang APRN.WILDLAND FIREFIGHTER Medication triamcinolone acetonide (KENALOG) 0.1 % cream, Sig Apply 1 application to affected area three times daily as needed. For rash on extremities and leg, Start Date 06/22/23, End Date , Taking?, Authorizing Provider Joon Lopez MD Medication Lancets lancets, Sig Test blood sugar(s) 1 times daily. Dx: Type 2 DM - Controlled E11.9Insulin: No, Start Date 06/22/23, End Date , [...] but does not need glasses Follows with pull up hand:YES Hearing - Hearing aid : Hearing impairment, no hearing aids Falls: .: Falls in the last 12 months: Positive: . If + falls: Physical Exam: General: Well-nourished, kempt Ambulatory: walker Mobility Aid: Walker Head: Normocephalic Eyes: conjunctiva/corneas normal, EOMI Cardio: regular rate and rhythm Pulmonary: Lungs clear to auscultation bilaterally Extremities: Extremities normal. No deformities, edema, or skin discoloration. Mini-Mental State Exam (MMSE): 27/30 CDR Dementia Scale 1) Subjective Memory Loss: YES 2) Measurable Memory Loss: YES 3) IADLs: yes 4) BADLs: NO Driving Safely: No < 50% 6) Medications: No Level: Depression Screening/Evaluation: GDS: 06/09 No Data Recorded Labs: Reviewed in [facility], remarkable for tsh being normal at 1.4 4 months ago, vitamin b12 was low 5 months ago Brain Imaging:None available today No diagnosis found. Assessment and Plan: I. Medical /Mental Status/Decision Making Capacity 1-Mentation # Subjective memory loss with measurable memory loss with MMSE score of 27 /30 ... Patient does have functional impairment, with inability to arrange for medication in the pillboxes, drive, much decreased food cooking. Etiology is more or less confirmed to be neurodegenerative process but she couldhave a vascular process in addition because of the documented lacunar infarcts and microvascular changes in the recent MRI.. Contributing factors are depression, sleep apnea, decreased hearing, cardiovascular risk factors and possibly some contribution with medications like oxybutynin. She has not been using a sleep machine, was diagnosed 8 to 10 years ago, she was noncompliant and the machine was ultimately repossessed. CDR 1 FAST 5 Patient and family are looking for preservation of function as much as possible Plan: Patient was started on Aricept at 5 mg. Side effects of the medications were explained to her. Follow-up in 3 months She is doing overall well with her depression. Vitamin B12 and thyroid tests for completion of workup Her blood pressure and cholesterols are better controlled so is her sugars at A1c of 6.8 Oxybutynin was unable to be exchanged to trospium because of cost issue 2-Mobility -- Falls: She has had a [...] adjustments in the future. Plan Physical therapy was not reordered for the patient, this was not addressed today as we are focusingon the Aricept 3-Medications and chronic medical conditions Patient has diabetes mellitus which is fairly well-controlled, she has hypertension, hypercholesterolemia continue the same medications Plan I would recommend switching her medications to short acting sulfonylurea urea like glipizide as opposed to the glimepiride. Would like to switch the oxybutynin to trospium Continue reduction in use of oxycodone, she is using more TENS units and lidocaine patches which galilea better option. 4- Matters Most - Will discuss in the next visit REFERRALS AND RECOMMENDATIONS 1. Discussed the cognitive benefits of memory exercises and reviewed examples 2. Discussed the cognitive benefits of physical exercise and socialization Xochitl Castrejon MD [place] [facility] documented [facility] Telephone encounter Note * Telephone Encounter - Miguelina Parson RN - 11/02/2024 1:05 PM EST LM on shayy Biggs's personal voicemail that prescription has been sent in. [facility]01-08-2025 Miscellaneous Notes* Telephone Encounter - Miguelina Parson RN - 11/02/2024 1:05 PM EST LM on shayy Biggs's personal voicemail that prescription has been sent in. * Telephone Encounter - Joon Lopez MD - 11/02/2024 12:59 PM EST The following approved medication requests have been transmitted electronically. Requested Prescriptions Pending Prescriptions Disp Refills gabapentin (NEURONTIN) 300 mg capsule 270 capsule 1 Sig: Take 2 capsules by mouth daily at bedtime AND 1 capsule every morning. Do all this for 180 days. Joon Lopez MD * Telephone Encounter - Bouchra Sneed - 11/02/2024 11:14 AM EST Patient's daughter Dian calling to check the status of medication gabapentin. * Telephone Encounter - Andreina Doran - 10/31/2024 10:55 AM EST Patient is out of medication, please expedite. Patient has been identified by name and date of : Yes Patient phones for refill(s): Requested Prescriptions Pending Prescriptions Disp Refills gabapentin (NEURONTIN) 300 mg capsule 270 capsule 1 Sig: Take 2 capsules by mouth daily at bedtime AND 1 capsule every morning. Do all this for 180 days. Date of last office visit in primary care: 09/09/2024 Date of next office visit in primary care: 12/07/2024 Please advise. Thank you. Andreina Doran. [facility] Telephone encounter Note * Telephone Encounter - Joon Lopez MD - 11/02/2024 12:59 PM EST The following approved medication requests have been transmitted electronically. Requested Prescriptions Pending Prescriptions Disp Refills gabapentin (NEURONTIN) 300 mg capsule 270 capsule 1 Sig: Take 2 capsules by mouth daily at bedtime AND 1 capsule every morning. Do all this for 180 days. Joon Lopez MD [facility]01-08-2025 Telephone encounter Note* Telephone Encounter - Bouchra Sneed - 11/02/2024 11:14 AM EST Patient's daughter Dian calling to check the status of medication gabapentin. [facility]01-06-2025 Telephone encounter Note* Telephone Encounter - Andreina Doran - 10/31/2024 10:55 AM EST Patient is out of medication, please expedite. Patient has been identified by name and date of : Yes Patient phones for refill(s): Requested Prescriptions Pending Prescriptions Disp Refills gabapentin (NEURONTIN) 300 mg capsule 270 capsule 1 Sig: Take 2 capsules by mouth daily at bedtime AND 1 capsule every morning. Do all this for 180 days. Date of last office visit in primary care: 09/09/2024 Date of next office visit in primary care: 12/07/2024 Please advise. Thank you. Andreina Doran. [facility]12-06-2024 Telephone encounter Note* Telephone Encounter - Patricia De La Paz LPN - 09/30/2024 9:38 AM EST Called and spoke to Keisha's daughter Dian, updated, will discuss medication. Patricia De La Paz LPN September 30, 2024 9:42 AM [facility]12-06-2024 Miscellaneous Notes* Telephone Encounter - Patricia De La Paz LPN - 09/30/2024 9:38 AM EST Called and spoke to Keisha's daughter Dian, updated, will discuss medication. Patricia De La Paz LPN September 30, 2024 9:42 AM * Telephone Encounter - Patricia De La Paz LPN - 09/30/2024 9:21 AM EST ----- Message from Xochitl Castrejon MD sent at 09/29/2024 5:22 PM EST ----- Likely has Alzheimer's dementia, would benefit from being on Aricept medication. Will discuss this and your coming visit in October. Xochitl Jose MD documented [facility] Telephone encounter Note * Telephone Encounter - Patricia De La Paz LPN - 09/30/2024 9:21 AM EST ----- Message from Xochitl Castrejon MD sent at 09/29/2024 5:22 PM EST ----- Likely has Alzheimer's dementia, would benefit from being on Aricept medication. Will discuss this and your coming visit in October. Xochitl Jose MD [facility]12-04-2024 NoteHNO ID: [id number] Author: EVERT BROOKS RN Service: ? Author Type: Registered Nurse Type: Procedures Filed: 09/28/2024 10:56 Note Text: Radiology Service Progress Note PATIENT NAME: Keisha Red DATE OF SERVICE: September 28, 2024 TIME: 10:38 AM PATIENT IDENTITY VERIFICATION COMPLETED USING TWO (2) STANDARD IDENTIFIERS: Name and Date of confirmed by patient verbally and Name and Date of confirmed by identification band. PATIENT GENDER DATA: Female. status: : No status: NO. PATIENT RELEVANT IMPLANT DATA REVIEWED: Yes ALLERGIES: Reviewed and unchanged MEDICATIONS REVIEWED: NO PROCEDURE: MRI - Conditional Pacemaker IV SITE: no IV needed PERIPHERAL IV ACCESS: Not applicable PATIENT TOLERATED PROCEDURE: Without incident. PATIENT DISCHARGED TO: Home/Self Care SIGNED BY: Evert Brooks RN [facility] 28, 2024 [facility] note* Evert Brooks RN - 09/28/2024 9:40 AM EST Radiology Service Progress Note PATIENT NAME: Keisha Red DATE OF SERVICE: September 28, 2024 TIME: 10:38 AM PATIENT IDENTITY VERIFICATION COMPLETED USING TWO (2) STANDARD IDENTIFIERS: Name and Date of confirmed by patient verbally and Name and Date of confirmed by identification band. PATIENT GENDER DATA: Female. status: : No status: NO. PATIENT RELEVANT IMPLANT DATA REVIEWED: Yes ALLERGIES: Reviewed and unchanged MEDICATIONS REVIEWED: NO PROCEDURE: MRI - Conditional Pacemaker IV SITE: no IV needed PERIPHERAL IV ACCESS: Not applicable PATIENT TOLERATED PROCEDURE: Without incident. PATIENT DISCHARGED TO: Home/Self Care SIGNED BY: Evert Brooks RN September 28, 2024 10:38 AM [facility]12-04-2024 Procedure note* Evert Brooks RN - 09/28/2024 9:40 AM EST Radiology Service Progress Note PATIENT NAME: Keisha Red DATE OF SERVICE: September 28, 2024 TIME: 10:38 AM PATIENT IDENTITY VERIFICATION COMPLETED USING TWO (2) STANDARD IDENTIFIERS: Name and Date of confirmed by patient verbally and Name and Date of confirmed by identification band. PATIENT GENDER DATA: Female. status: : No status: NO. PATIENT RELEVANT IMPLANT DATA REVIEWED: Yes ALLERGIES: Reviewed and unchanged MEDICATIONS REVIEWED: NO PROCEDURE: MRI - Conditional Pacemaker IV SITE: no IV needed PERIPHERAL IV ACCESS: Not applicable PATIENT TOLERATED PROCEDURE: Without incident. PATIENT DISCHARGED TO: Home/Self Care SIGNED BY: Evert Brooks RN September 28, 2024 10:38 AM documented in [facility] Telephone encounter Note * Telephone Encounter - Jamari Maki MA - 09/19/2024 1:17 PM EST Patient has been rescheduled. Jamari Maki MA [facility]11-25-2024 Miscellaneous Notes* Telephone Encounter - Jamari Maki MA - 09/19/2024 1:17 PM EST Patient has been rescheduled. Jamari Maki MA * Telephone Encounter - Jamari Maki MA - 09/13/2024 10:38 AM EST Patient schedule for MRI follow up on 09/21/24 but does not have MRI until September. Patient r/s to next available after testing, 10/27/24. PSS attempted to contact patient, no answer and VM full. Will try again. Jamari Maki MA documented in this encounter[facility] Telephone encounter Note * Telephone Encounter - Jamari Maki MA - 09/13/2024 10:38 AM EST Patient schedule for MRI follow up on 09/21/24 but does not have MRI until September. Patient r/s to next available after testing, 10/27/24. PSS attempted to contact patient, no answer and VM full. Will try again. Jamari Maki MA [facility]11-15-2024 NoteHNO ID: [id number] Author: WHITNEY HAMMOND APRN.RAD[employer] ENGINEERING TEACHER Service: ? Author Type: Nurse Practitioner Type: Progress Notes Filed: 09/09/2024 13:17 Note Text: SUBJECTIVE Keisha Red is a 79 year old female here today for a check up on her medical problems. Chief Complaint Patient presents with: Recheck HPI Keisha Red is a 79 year old female. She is an established patient of Joon Lopez MD. Here today for a routine 3 month follow up. She has been seen with geriatrics. Started on Zoloft. Seen in yesterday, on treatment for UTI with Macrobid. In regards to medications currently taken for pain management, the patient is tolerating these medications well. She reports that the medications improve her quality of life and ability to function. She denies misuse, abuse or diversion of medications. Due for labs next visit, dm has been controlled. On coumadin for her history of a flutter. Tolerating well. Her medications were reviewed today and her list is now up to date. Medications Current Outpatient Medications Medication Sig nitrofurantoin monohydrate and macrocrystal (MACROBID) 100 mg capsule Take 1 capsule by mouth two times a day for 7 days. oxyCODONE IR (ROXICODONE) 5 mg immediate release tablet Take by mouth every 8 hours as needed for pain. Managed by Dr. Mora, Pain Management manages sertraline (ZOLOFT) 50 mg tablet Take 1 tablet by mouth once daily. Please take half pill for a week and then increase to a full pill trospium (SANCTURA) 20 mg tablet Take 1 tablet by mouth two times a day. fluticasone-vilanterol (BREO ELLIPTA) 100-25 mcg/dose inhaler Inhale 1 Inhalation as instructed once daily. albuterol HFA (PROAIR HFA) 90 mcg/actuation inhaler Inhale 2 Puffs as instructed every 4 hours as needed for wheezing/shortness of breath. 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 warfarin (COUMADIN) 5 mg tablet Take 1 tablet by mouth once daily. montelukast (SINGULAIR) 10 mg tablet Take 10 mg by mouth daily at bedtime. diclofenac (VOLTAREN ARTHRITIS PAIN) 1 % topical gel Apply 2 g to affected area four times daily. Takes as needed Cholecalciferol, Vitamin D3, 50 mcg (2,000 unit) [...] mouth two times a day with meals. triamcinolone acetonide (KENALOG) 0.1 % cream Apply 1 application to affected area three times daily as needed. For rash on extremities and leg TENS unit and electrodes cmpk 1 Each [...] Right Lower Extremity With Fat Layer Exposed ([facility]) - 07/26/2023 Pulmonary Hypertension (Hcc) - [...] Never Smokeless tobacco: Never Vaping Use Vaping status: Never Used Substance Use Topics Alcohol use: No Drug use: Never Review of Systems Constitutional: Negative. Respiratory: Negative. Cardiovascular: Negative. OBJECTIVE BP 98 (more content not included)...[facility]11-15-2024 History of Present illness Narrative* Whitney Hammond APRN.RADAR ENGINEERING TEACHER - 09/09/2024 12:04 PM EST SUBJECTIVE Keisha Red is a 79 year old female here today for a check up on her medical problems. Chief Complaint Patient presents with: Recheck HPI Keisha Red is a 79 year old female. She is an established patient of Joon Lopez MD. Here today for a routine 3 month follow up. She has been seen with geriatrics. Started on Zoloft. Seen in yesterday, on treatment for UTI with Macrobid. In regards to medications currently taken for pain management, the patient is tolerating these medications well. She reports that the medications improve her quality of life and ability to function. She denies misuse, abuse or diversion of medications. Due for labs next visit, dm has been controlled. On coumadin for her history of a flutter. Tolerating well. Her medications were reviewed today and her list is now up to date. Medications Current Outpatient Medications Medication Sig nitrofurantoin monohydrate and macrocrystal (MACROBID) 100 mg capsule Take 1 capsule by mouth two times a day for 7 days. oxyCODONE IR (ROXICODONE) 5 mg immediate release tablet Take by mouth every 8 hours as needed for pain. Managed by Dr. Mora, Pain Management manages sertraline (ZOLOFT) 50 mg tablet Take 1 tablet by mouth once daily. Please take half pill for a week and then increase to a full pill trospium (SANCTURA) 20 mg tablet Take 1 tablet by mouth two times a day. fluticasone-vilanterol (BREO ELLIPTA) 100-25 mcg/dose inhaler Inhale 1 Inhalation as instructed once daily. albuterol HFA (PROAIR HFA) 90 mcg/actuation inhaler Inhale 2 Puffs as instructed every 4 hours as needed for wheezing/shortness of breath. 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 warfarin (COUMADIN) 5 mg tablet Take 1 tablet by mouth once daily. montelukast (SINGULAIR) 10 mg tablet Take 10 mg by mouth daily at bedtime. diclofenac (VOLTAREN ARTHRITIS PAIN) 1 % topical gel Apply 2 g to affected area four times daily. Takes as needed Cholecalciferol, Vitamin D3, 50 mcg (2,000 unit) [...] mouth daily at bedtime AND 1 capsule everymorning. Do all this for 180 days. glimepiride (AMARYL) 2 mg tablet Take 1 tablet by mouth two times a day with meals. triamcinolone acetonide (KENALOG) 0.1 % cream Apply 1 application to affected area three times daily as needed. For rash on extremities and leg TENS unit and electrodes cmpk 1 Each [...] Hemorrhagic Disorder Due to Extrinsic Circulating Anticoagulants ([facility]) - 09/23/2023 Ulcer of Right Lower Extremity With Fat Layer Exposed ([facility]) - 07/26/2023 Pulmonary Hypertension ([facility]) - 05/03/2023 Ramesh (Obstructive Sleep Apnea) - 01/21/2021 Pacemaker - 01/21/2021 Bilateral Carpal Tunnel Syndrome - 01/21/2021 Atrial Flutter ([facility]) - 04/12/2019 Anticoagulated On Coumadin - 04/12/2019 Severe Low Back Pain - 12/28/2018 Ddd (Degenerative Disc Disease), Lumbar Comment: Dr. 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 Respiratory: Negative. Cardiovascular: Negative. OBJECTIVE BP 98/60 Pulse 68 Wt 179 lb 14.3 oz (81.6kg) Physical Exam Vitals and nursing note reviewed. [...] ICD9: 250.00, ICD10: E11.9 (primary diagnosis) - Control undetermined, due for labs - Continue current medications - Counseled on healthy diet and regular exercise - Discussed need for and benefit of weight loss. BMI 29.04 kg/(m^2) - HEMOGLOBIN A1C - ALBUMIN/CREATININE RATIO, URINE 2. Mixed hyperlipidemia - ICD9: 272.2, ICD10: E78.2 - Control undetermined, due for labs - Counseled on healthy diet and regular exercise - LIPID PANEL BASIC 3. Essential hypertension - ICD9: 401.9, ICD10: I10 - Controlled - Continue current medications - Recommend home blood pressure monitoring, to bring results to next visit - Encouraged sodium restriction, DASH or Mediterranean diet - Recommend regular aerobic exercise 4. Atrial flutter, unspecified type (HCC) - ICD9: 427.32, ICD10: I48.92 Stable. 5. Anticoagulated on Coumadin - ICD9: V58.61, ICD10: Z79.01 6. Degeneration of intervertebral disc of lumbar region, unspecified whether pain present - ICD9: 722.52, ICD10: M51.369 Stable 7. Memory deficit - ICD9: 780.93, ICD10: R41.3 Working with geriatrics for official diagnosis. 8. Encounter for therapeutic drug monitoring - ICD9: V58.83, ICD10: Z51.81 - COMPLETE BLOOD COUNT AND DIFFERENTIAL - COMPREHENSIVE METABOLIC PANEL Portions of this note have been entered by ancillary staff. I have reviewed and when necessary edited, so that they are an adequate record of my encounter with this patient Please note that parts of this document were created using voice recognition software and therefore may contain grammatical errors. Patient verbalizes understanding of instructions from today's visit and in agreement with treatmentplan. Questions answered. Agrees to call the office [...] as well as compliance with taking medications. Age- appropriate health preventative measures were discussed. Return in about 3 months (around 12/10/2024) for Follow up on chronic conditions and medications.. Whitney Hammond APRN-DOMINGO documented in this encounter[facility] NoteHNO ID: [id number] Author: MARGARET WILDE APRN.DOMINGO Service: ? Author Type: Nurse Practitioner Type: Progress Notes Filed: 09/08/2024 14:28 Note Text: CC: Patient presents with: UTI: X2 days, family states confusion, pt denies symptoms HPI Keisha Red is a 79 year old female who presents with complaint of possible UTI. These symptoms have been continuous from the last uti Associated symptoms: confusion Denies: burning, pressure, fever, chills, and sweats Treatments: nothing The ROS was otherwise negative. PMH, Medications, labs, allergies, and recent past visits with PCP were reviewed and updated as able. PHYSICAL EXAM: BP 116/70 Pulse 71 Temp 36.8 ?C (98.3 ?F) Resp 18 Wt 82.8 kg (182 lb 8.7 oz) SpO2 97% BMI 29.46 kg/m? General: Well appearing and alert CV: Regular rate and rhythm without obvious murmur Lungs: clear to auscultation bilaterally Back: straight and symmetric Abdomen: soft, nontender, nondistended PAST MEDICAL HISTORY Diagnosis Date Allergic rhinitis, [...] Right shoulder s/p fall with reduction at [facility] Type II or unspecified type diabetes [...] Amoxicillin, Aspirin, and Sulfa (Sulfonamide Antibiotics) MEDICATIONS nitrofurantoin monohydrate and macrocrystal (MACROBID) 100 mg capsule Take 1 capsule by mouth two times a day for 7 days. oxyCODONE IR (ROXICODONE) 5 mg immediate release tablet Take by mouth every 8 hours as needed for pain. Managed by Dr. Mora, Pain Management manages sertraline (ZOLOFT) 50 mg tablet Take 1 tablet by mouth once daily. Please take half pill for a week and then increase to a full pill trospium (SANCTURA) 20 mg tablet Take 1 tablet by mouth two times a day. fluticasone-vilanterol (BREO ELLIPTA) 100-25 mcg/dose inhaler Inhale 1 Inhalation as instructed once daily. albuterol HFA (PROAIR HFA) 90 mcg/actuation inhaler Inhale 2 Puffs as instructed every 4 hours as needed for wheezing/shortness of breath. 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 warfarin (COUMADIN) 5 mg tablet Take 1 tablet by mouth once daily. montelukast (SINGULAIR) 10 mg tablet Take 10 mg by mouth daily at bedtime. diclofenac (VOLTAREN ARTHRITIS PAIN) 1 % topical gel Apply 2 g to affected area four times daily. Takes as needed Cholecalciferol, Vitamin D3, 50 mcg (2,000 unit) [...] needed. For rash on extremities and leg blood sugar diagnostic (BLOOD GLUCOSE TEST) test strip Test blood sugar(s) 1 times daily. Dx: Type 2 DM - Controlled E11.9 Insulin: No Lancets lancets Test blood sugar(s) 1 times daily. Dx: Type 2 DM - Controlled E11.9 Insulin: No FAMILY HISTORY Problem Relation Age of Onset Diabetes Mother Coronary Artery Disease Father Cancer Sister lung Dementia Brother Migraines Daughter Migraines Son other (nephrolithiasis) Son Hypertension Son Social History Tobacco Use Smoking status: Never Smokeless tobacco: Never Vaping Use Vaping status: Never Used Substance Use Topics Alcohol use: No Drug use: Never ASSESSMENT/PLAN: 1. Dysuria - ICD9: 788.1, ICD10: R30.0 - UA DIP, URINE (POC) - URINE CULTURE - NITROFURANTOIN MONOHYDRATE AND MACROCRYSTAL 100 MG ORAL CAP Prescription instructions reviewed with patient (more content not included)... [facility]11-14-2024 History of Present illness Narrative* Margaret Wilde APRN.[facility] - 09/08/2024 2:21 PM EST CC: Patient presents with: UTI: X2 days, family states confusion, pt denies symptoms HPI Keisha Red is a 79 year old female who presents with complaint of possible UTI. These symptoms have been continuous from the last uti Associated symptoms: confusion Denies: burning, pressure, fever, chills, and sweats Treatments: nothing The ROS was otherwise negative. PMH, Medications, labs, allergies, and recent past visits with PCP were reviewed and updated as able. PHYSICAL EXAM: BP 116/70 Pulse 71 Temp 36.8 C (98.3 F) Resp 18 Wt 82.8 kg (182 lb 8.7 oz) SpO2 97% BMI29.46 kg/m General: Well appearing and alert CV: Regular rate and rhythm without obvious murmur Lungs: clear to auscultation bilaterally Back: straight and symmetric Abdomen: soft, nontender, nondistended PAST MEDICAL HISTORY Diagnosis Date Allergic rhinitis, [...] Right shoulder s/p fall with reduction at [facility] Type II or unspecified type diabetes [...] Amoxicillin, Aspirin, and Sulfa (Sulfonamide Antibiotics) MEDICATIONS nitrofurantoin monohydrate and macrocrystal (MACROBID) 100 mg capsule Take 1 capsule by mouth two times a day for 7 days. oxyCODONE IR (ROXICODONE) 5 mg immediate release tablet Take by mouth every 8 hours as needed for pain. Managed by Dr. Mora, Pain Management manages sertraline (ZOLOFT) 50 mg tablet Take 1 tablet by mouth once daily. Please take half pill for a week and then increase to a full pill trospium (SANCTURA) 20 mg tablet Take 1 tablet by mouth two times a day. fluticasone-vilanterol (BREO ELLIPTA) 100-25 mcg/dose inhaler Inhale 1 Inhalation as instructed once daily. albuterol HFA (PROAIR HFA) 90 mcg/actuation inhaler Inhale 2 Puffs as instructed every 4 hours as needed for wheezing/shortness of breath. 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 warfarin (COUMADIN) 5 mg tablet Take 1 tablet by mouth once daily. montelukast (SINGULAIR) 10 mg tablet Take 10 mg by mouth daily at bedtime. diclofenac (VOLTAREN ARTHRITIS PAIN) 1 % topical gel Apply 2 g to affected area four times daily. Takes as needed Cholecalciferol, Vitamin D3, 50 mcg (2,000 unit) [...] mouth daily at bedtime AND 1 capsule everymorning. Do all this for 180 days. glimepiride [...] needed. For rash on extremities and leg blood sugar diagnostic (BLOOD GLUCOSE TEST) test strip Test blood sugar(s) 1 times daily. Dx: Type 2 DM - Controlled E11.9 Insulin: No Lancets lancets Test blood sugar(s) 1 times daily. Dx: Type 2 DM - Controlled E11.9 Insulin: No FAMILY HISTORY Problem Relation Age of Onset Diabetes Mother Coronary Artery Disease Father Cancer Sister lung Dementia Brother Migraines Daughter Migraines Son other (nephrolithiasis) Son Hypertension Son Social History Tobacco Use Smoking status: Never Smokeless tobacco: Never Vaping Use Vaping status: Never Used Substance Use Topics Alcohol use: No Drug use: Never ASSESSMENT/PLAN: 1. Dysuria - ICD9: 788.1, ICD10: R30.0 - UA DIP, URINE (POC) - URINE CULTURE - NITROFURANTOIN MONOHYDRATE & MACROCRYSTAL 100 MG ORAL CAP Prescription instructions reviewed with patient as applicable. Potential red flag symptoms discussed with the patient. Reviewed appropriate action plan to take if red flag symptoms occur. Patient agreeable to treatment plan. Margaret Wilde APRN.RADAR ENGINEERING TEACHER documented in this encounterSelect [facility]24 NoteHNO ID: [id number] Author: SANDRA PAYTON PA-C Service: ? Author Type: Physician Bus Person Type: Progress Notes Filed: 08/17/2024 12:25 Note Text: This note was created using Photobucket. Subjective Keisha Red is a 79 year [...] excellent understanding of same. CLINICAL IM[facility]ION: [facility] History of Present illness Narrative* Sandra Payton PA-C - 08/17/2024 12:18 PM EDT This note was created using Photobucket. Subjective Keisha Red is a 79 year [...] large enough sample for urine culture to beobtained. Patient was provided with a prescription for Keflex 500 mg and supportive care instructions were discussed. Patient and her granddaughter verbalize excellent understanding of same. CLINICAL IMPRESSION: Acute UTI documented in this encounterSelect [facility]-2024 Telephone encounter Note * Telephone Encounter - Jamari Maki MA - 08/03/2024 1:47 PM EDT Vitamin b12 ordered by Dr. Castrejon and patient had drawn at [facility]. View External Labs - Vit B12,INR, [ID [id number]] Please review and advise. Jamari Maki MA [facility]10-09-2024 Miscellaneous Notes* Telephone Encounter - Jamari Maki MA - 08/03/2024 1:47 PM EDT Vitamin b12 ordered by Dr. Castrejon and patient had drawn at [facility]. View External Labs - Vit B12,INR, [ID [id number]] Please review and advise. Jamari Maki MA documented in this encounterSelect Medical [facility] [place]10-09-2024 Telephone encounter Note * Telephone Encounter - Jamari Maki MA - 08/03/2024 1:27 PM EDT Noted. Thank you! Jamari Maki MA [facility]10-09-2024 Miscellaneous Notes* Telephone Encounter - Jamari Maki MA - 08/03/2024 1:27 PM EDT Noted. Thank you! Jamari Maki MA * Telephone Encounter - Sheridan Humphries - 08/03/2024 12:44 PM EDT I have placed the appropriate message to the Pacemaker/MRI safety team via phone encounter to the pool. * Telephone Encounter - Jamari Maki MA - 08/03/2024 11:47 AM EDT Phone call to Dian to inform that neither or [facility] do the type of MRI that was ordered. Informed Dian that I will have a teaching dietitian call her to get testing scheduled. Pacemaker card printed from [facility] [employer]. Sent to scanning. Sheridan, can you please call this patient's daughter Dian to schedule the MRI? Jamari Maki MA * Telephone Encounter - Roopa Edgar RN - 08/03/2024 11:09 AM EDT Daughter (Dian) calls to let provider know that [facility] and she could have it done at the [place] location. Prior Auth is pending. Roopa Edgar RN documented in this encounterSelect Medical Specialty [facility] [place]10-09-2024 Telephone encounter Note * Telephone Encounter - Sheridan Humphries - 08/03/2024 12:44 PM EDT I have placed the appropriate message to the Pacemaker/MRI safety team via phone encounter to the pool. [facility] Telephone encounter Note* Telephone Encounter - Sheridan Humphries - 08/03/2024 12:40 PM EDT Pt came in for a Geriatric consult [...] , it is OK to leave message [phone] (home) [phone] (cell) Payor: [employer] / Plan: [facility] HMO / Product Type: HMO / Sheridan Humphries [facility]10-09-2024 Miscellaneous Notes* Telephone Encounter - Sheridan Humphries - 08/03/2024 12:40 PM EDT Pt came in for a Geriatric consult [...] , it is OK to leave message [phone] (home) [phone] (cell) Payor: [employer] / [facility] / Product Type: H[facility] / Sheridan Kristel documented in this encounterSelect [facility] [place]10-[facility]-2024 Telephone encounter Note * Telephone Encounter - Jamari Maki MA - 08/03/2024 11:47 AM EDT Phone call to Dian to inform that neither or [facility] do the type of MRI that was ordered. Informed Dian that I will have a teaching dietitian call her to get testing scheduled. Pacemaker card printed from [facility] [employer]. Sent to scanning. Sheridan, can you please call this patient's daughter Dian to schedule the MRI? Jamari Maki MA [facility]10-09-2024 Telephone encounter Note* Telephone Encounter - Roopa Edgar RN - 08/03/2024 11:09 AM EDT Daughter (Dian) calls to let provider know that she [facility] [place] [facility] and she could have it done at the [place] location. Prior Auth is pending. Roopa Edgar RN [facility]10-09-2024 NoteHNO ID: [id number] Author: XOCHITL CASTREJON MD Service: ? Author Type: Physician Type: Progress Notes Filed: 09/29/2024 17:21 Note Text: [facility] Initial Consult Keisha [...] a secure location? Social History: Primary language: Belizean Marital Status: Living situation: Home Alone, since 2010 when her Socially engaged? (participates in activities such as clubs, taoism, community center, sports, games, visiting friends/relatives, etc?): NO She used to go out with friends and family, a few times a month. She used to have a group of 4 friends who used to go out but she has not done that for the past 7 months. Caregiver [place] and Stress Are your feeling overwhelmed? NO Do you have concerns about your own health? NO Are you neglecting your o (more content not included)...[facility]10-09-[facility] History of Present illness Narrative* Xochitl Castrejon MD - 08/03/2024 7:50 AM EDT [facility] Initial Consult Keisha [...] first noticed issues . She has also beenvery sad, does not feel like she want [...] a secure location? Social History: Primary language: [place]an Marital Status: Living situation: Home Alone, since 2010 when her Socially engaged? (participates in activities such as clubs, taoism, community center, sports, games, visiting friends/relatives, etc?): NO She used to go out with friends and family, a few times a month. She used to have a group of 4 friends who used to go out but she has not done that for the past 7 months. Caregiver [place] and Stress Are your feeling overwhelmed? NO [...] being in the caregiver role? NO B-ADLs: (I=independent,A=assistance,D=dependent) ?Bathing: I, Dressing: I, Toileting: I, Transferring:I, Continence: I, Feeding: I, (Gibbons Index): I-ADLs: Ability to use phone: I, sometimes having a hard time figuring out which calls to take Shopping: I, Cooking: A, she has messed up some recipes has cut down a lot, used to do the big turkey at [facility] where the turkey was spoiled and [...] Right shoulder s/p fall with reduction at [facility] Type II or unspecified type diabetes [...] tablet, Sig Take by mouth every 8 hoursas needed for pain. Managed by Dr. Mora, Pain Management manages, Start Date , End Date , Taking? Yes, Authorizing Provider Provider, [facility] Medication albuterol HFA (PROAIR HFA) 90 mcg/actuation inhaler, Sig Inhale 2 Puffs as instructed every 4 hours as needed for wheezing/shortness of breath. 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), Start Date 05/27/24, End Date , Taking? Yes, Authorizing Provider Whitney Hammond APRN.RADAR ENGINEERING TEACHER Medication diclofenac (VOLTAREN ARTHRITIS PAIN) 1 % [...] , Taking? Yes, Authorizing Provider Whitney Hammond APRN.RADAR ENGINEERING TEACHER Medication cyanocobalamin (VITAMIN B-12) 1,000 mcg tab, Sig Take 1 tablet by mouth once daily., Start Date 04/06/24, End Date , Taking? Yes, Authorizing Provider Whitney Hammond APRN.RADAR ENGINEERING TEACHER Medication atorvastatin (LIPITOR) 10 mg tablet, Sig Take 1 tablet by mouth once daily., Start Date 03/22/24, End Date , Taking? Yes, Authorizing Provider Whitney Hammond APRN.RADAR ENGINEERING TEACHER Medication blood sugar diagnostic (BLOOD GLUCOSE TEST) [...] 1 tablet by mouth once daily., Start Date04/06/24, End Date , Taking? , Authorizing Provider Whitney Hammond APRN.RADAR ENGINEERING TEACHER Medication gabapentin (NEURONTIN) 300 mg capsule, Sig Take 2 capsules by mouth daily at bedtime AND1 capsule every morning. Do all this for 180 days., Start Date 03/22/24, End Date 12/16/24, Taking? ,Authorizing Provider Whitney Hammond APRN.RADAR ENGINEERING TEACHER Medication glimepiride (AMARYL) 2 mg tablet, Sig Take 1 tablet by mouth two times a day with meals., Start Date 03/22/24, End Date , Taking? , Authorizing Provider Whitney Hammond APRN.RADAR ENGINEERING TEACHER Medication TENS unit and electrodes cmpk, Sig 1 Each once daily., Start Date 09/10/23, End Date , Taking? , Authorizing Provider Trini Tang APRN.WILDLAND FIREFIGHTER Medication tens unit electrodes (TENS UNITS ELECTRODES) 2X2 pads, Sig Change pad every month as indicated, Start Date 09/10/23, End Date , Taking? , Authorizing Provider Trini Tang APRN.WILDLAND FIREFIGHTER Medication triamcinolone acetonide (KENALOG) 0.1 % cream, Sig Apply 1 application to affected area three times daily as needed. For rash on extremities and leg, Start Date 06/22/23, End Date , Taking?, Authorizing Provider Joon Lopez MD Medication Lancets lancets, Sig Test blood sugar(s) 1 times daily. Dx: Type 2 DM - Controlled E11.9Insulin: No, Start Date 06/22/23, End Date , [...] but does not need glasses Follows with pull up hand:YES Hearing - Hearing aid : Hearing impairment, no hearing aids Falls: .: Falls in the last 12 months: Positive: . If + falls: Physical Exam: General: Well-nourished, kempt Ambulatory: walker Mobility Aid: Walker Head: Normocephalic Eyes: conjunctiva/corneas normal, EOMI Ears: R TM - clear with good landmarks, nl light reflex, L TM - clear with good landmarks, nl lightreflex Nose: clear Oropharynx: moist without lesions, has [...] 06/09 No Data Recorded Labs: Reviewed in [facility], remarkable for tsh being normal at 1.4 4 months ago, vitamin b12 was low 5 months ago Brain Imaging:None available today No diagnosis found. Assessment and Plan: I. Medical /Mental Status/Decision Making Capacity 1-Mentation # Subjective memory loss with measurable memory loss with MMSE score of 27 /30 ... Patient does nothave functional impairment, with inability to arrange for [...] the family to reach out to the ultimate hoops referee to know if this particular type of pacemaker is okay with an MRI. She will also reach out to her ultimate hoops referee who monitors her INR because Zoloft is [...] more TENS units and lidocaine patches which galilea better option. 4- Matters Most - Will discuss in the next visit REFERRALS AND RECOMMENDATIONS 1. Discussed the cognitive benefits of memory exercises and reviewed examples 2. Discussed the cognitive benefits of physical exercise and socialization Xochitl Castrejon MD [place] [facility] documented in this encounterSelect Medical [facility]09-14-2024 Telephone encounter Note * Telephone Encounter - Joon Lopez MD - 07/09/2024 1:57 PM EDT Noted [facility]-2024 Miscellaneous Notes* Telephone Encounter - Joon Lopez MD - 07/09/2024 1:57 PM EDT Noted * Telephone Encounter - Liza Santana LPN - 07/06/2024 10:54 AM EDT FYI Calling to report, Chris went out to [place] Patient from , she reported a fall that took place yesterday. Walking out of hallway slipped dog urine. She was able to get up on her own, no injury. Liza Santana LPN documented in this encounterSelect Medical [facility]ty [facility] [place]09-11-2024 Telephone encounter Note * Telephone Encounter - Liza Santana LPN - 07/06/2024 10:54 AM EDT FYI Calling to reportChris went out to [place] Patient from , she reported a fall that took place yesterday. Walking out of hallway slipped dog urine. She was able to get up on her own, no injury. Liza Santana LPN [facility]09-11-2024 Telephone encounter Note* Telephone Encounter - Whitney Hammond APRN.CNP - 07/06/2024 10:50 AM EDT PDMP website checked and validated. All prescriptions have been APPROPRIATELY filled. No suspiciousactivity was identified. 07/06/2024 by Whitney Hammond APRN.CNP [facility]-11-2024 Miscellaneous Notes* Telephone Encounter - Whitney Hammond APRN.CNP - 07/06/2024 10:50 AM EDT PDMP website checked and validated. All prescriptions have been APPROPRIATELY filled. No suspiciousactivity was identified. 07/06/2024 by Whitney Hammond APRN.DOMINGO * Telephone Encounter - Carolina Kuo LPN - 07/05/2024 1:42 PM EDT Prescription Refill Information The patient has been [...] pain for up to 7 days. Carolina Kuo LPN July 05, 2024 1:42 PM * Telephone Encounter - Ramila Guerrero - 07/05/2024 1:18 PM EDT Patient called to refill her oxycodone rx; not on current med list. Uses [facility] in [place]. documented in this encounterSelect Medical [facility]ty [facility]09-10-2024 Telephone encounter Note * Telephone Encounter - Carolina Kuo LPN - 07/05/2024 1:42 PM EDT Prescription Refill Information The patient has been [...] pain for up to 7 days. Carolina Kuo LPN July 05, 2024 1:42 PM [facility]-2024 Telephone encounter Note* Telephone Encounter - Ramila Guerrero - 07/05/2024 1:18 PM EDT Patient called to refill her oxycodone rx; not on current med list. Uses [facility] in [place]. [facility]-04-2024 Telephone encounter Note* Telephone Encounter - Sylwia Chang LPN - 06/29/2024 4:10 PM EDT Order faxed to the number listed for the [facility]. Sylwia Chang LPN [facility]09-04-2024 Miscellaneous Notes* Telephone Encounter - Sylwia Chang LPN - 06/29/2024 4:10 PM EDT Order faxed to the number listed for the [facility]. Sylwia Chang LPN * Telephone Encounter - Joon Lopez MD - 06/29/2024 1:16 PM EDT Patient's request for medication is as follows: Requested Prescriptions Signed Prescriptions Disp Refills fluticasone-vilanterol (BREO ELLIPTA) 100-25 mcg/dose inhaler 180 Each 3 Sig: Inhale 1 Inhalation as instructed once daily. Authorizing Provider: JOON LOPEZ Prescription(s) printed as above. Please process accordingly. * Telephone Encounter - Any Peacock LPN - 06/28/2024 2:51 PM EDT Mary Jo with [facility] [employer] is calling in regards to rx for Symbicort 160-4.5 mg inhaler. Mary Jo reports pt cannot afford Symbicort and the landcare facilitator does not have a patient assistance program. Mary Jo reports the landcare facilitator for Breo does have an assistance program and is asking if pcp wouldprescribe pt Breo inhaler instead. If so Mary Jo is requesting rx be faxed to [phone] Attn: Mary Jo. Any Peacock LPN documented in this encounterSelect Medical [facility]09-04-2024 Telephone encounter Note * Telephone Encounter - Joon Lopez MD - 06/29/2024 1:16 PM EDT Patient's request for medication is as follows: Requested Prescriptions Signed Prescriptions Disp Refills fluticasone-vilanterol (BREO ELLIPTA) 100-25 mcg/dose inhaler 180 Each 3 Sig: Inhale 1 Inhalation as instructed once daily. Authorizing Provider: JOON LOPEZ Prescription(s) printed as above. Please process accordingly. [facility]-03-2024 Telephone encounter Note* Telephone Encounter - Any Peacock LPN - 06/28/2024 2:51 PM EDT Mary Jo with [facility] [employer] is calling in regards to rx for Symbicort 160-4.5 mg inhaler. Mary Jo reports pt cannot afford Symbicort and the landcare facilitator does not have a patient assistance program. Mary Jo reports the landcare facilitator for Breo does have an assistance program and is asking if pcp wouldprescribe pt Breo inhaler instead. If so Mary Jo is requesting rx be faxed to [phone] Attn: Mary Jo. Any Peacock LPN [facility]-28-2024 Instructions* Patient Instructions* Joon Lopez MD - 06/22/2024 10:56 AM EDT -Discontinue Flexeril to reduce confusion - Discontinue Tylenol to avoid interaction with Coumadin - Stay hydrated by drinking at least 8 cups of fluid per day, including water, juice, and other non-caffeinated beverages - Continue taking your regular medications, including gabapentin (2 at bedtime, 1 every morning) - Use lidocaine patches (4% [id number]) for pain relief, applying for 12 hours [...] preparation for this procedure. documented in this encounterSelect Medical Specialty [facility]08-28-2024 NoteHNO ID: [id number] Author: JOON LOPEZ MD Service: ? Author Type: Physician Type: Progress Notes Filed: 06/22/2024 11:00 Note Text: This note was created using Hello Marketter. Subjective Keisha Red is a 79 year [...] a recent hospitalization. Patient was admitted to [facility] on the for confusion and was discharged [...] Right shoulder s/p fall with reduction at [facility] No date: Type II or unspecified type diabetes mellitus without mention of complication, not stated as uncontrolled No date: Unspecified asthma(493.90) No date: Unspecified essential hypertension Current Outpatient Medications Medication Sig albuterol HFA (PROAIR HFA) 90 mcg/actuation inhaler Inhale 2 Puffs as instructed every 4 hours as needed for wheezing/shortness of breath. 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) nitrofurantoin macrocrystal (MACRODANTIN) 100 mg capsule [...] Inhale 2 Puffs as instructed twice daily. ([facility] pulmonology) blood sugar diagnostic (BLOOD GLUCOSE [...] ?F) Resp 16 Ht 167.6 cm (5' 6) Wt 85.3 kg (188 lb 0.8 oz) [...] is warm and dry (more content not included)...[facility]08-28-2024 History of Present illness Narrative* Joon Lopez MD - 06/22/2024 10:21 AM EDT This note was created using Surfkitchenriter. Subjective Keisha Red is a 79 year [...] a recent hospitalization. Patient was admitted to [facility] on the for confusion and was discharged on the . Shereports that her confusion may have been exacerbated [...] Right shoulder s/p fall with reduction at [facility] No date: Type II or unspecified type diabetes mellitus without mention of complication, not stated as uncontrolled No date: Unspecified asthma(493.90) No date: Unspecified essential hypertension Current Outpatient Medications Medication Sig albuterol HFA (PROAIR HFA) 90 mcg/actuation inhaler Inhale 2 Puffs as instructed every 4 hours as needed for wheezing/shortness of breath. 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) nitrofurantoin macrocrystal (MACRODANTIN) 100 mg capsule [...] mouth daily at bedtime AND 1 capsule everymorning. Do all this for 180 days. glimepiride [...] Inhale 2 Puffs as instructed twice daily. ([facility] pulmonology) blood sugar diagnostic (BLOOD GLUCOSE [...] F) Resp 16 Ht 167.6 cm (5' 6) Wt 85.3 kg (188 lb 0.8 oz) [...] the date of the service which included [id number] patient care, completing clinical documentation, obtaining and/or reviewing separately obtained history, performing a medically appropriate examination, counseling and educating the patient/family/caregiver, ordering medications, tests, or procedures, independently interpreting results (not separately reported), and communicating results to the patient/family/caregiver. Joon Lopez MD documented in this encounterSelect Medical [facility]08-27-2024 Telephone encounter Note * Telephone Encounter - Trini Tang APRN.CNS - 06/21/2024 4:09 PM EDT Noted. Okay for home health care. [facility]08-27-2024 Miscellaneous Notes* Telephone Encounter - Trini Tang APRN.CNS - 06/21/2024 4:09 PM EDT Noted. Okay for home health care. * Telephone Encounter - Maddie Rojo LPN - 06/21/2024 3:28 PM EDT Soren with [facility], nursing called to report he did a resumption of pt and will be seeing pt startingnext week. will see 1 time a week for 2 weeks. Dx: disease management education. [facility] took pt off the Flexeril because they thought this may be contributing to her confusion. No call back needed. Maddie Rojo LPN documented in this encounterSelect [facility]-27-2024 Telephone encounter Note * Telephone Encounter - Maddie Rojo LPN - 06/21/2024 3:28 PM EDT Soren with [facility], nursing called to report he did a resumption of pt and will be seeing pt startingnext week. will see 1 time a week for 2 weeks. Dx: disease management education. [facility] took pt off the Flexeril because they thought this may be contributing to her confusion. No call back needed. Maddie Rojo LPN [facility]-26-2024 Telephone encounter Note* Telephone Encounter - Guerline Davila LPN - 06/20/2024 4:11 PM EDT So noted. Scheduled adjusted [facility]-26-2024 Miscellaneous Notes* Telephone Encounter - Guerline Davila LPN - 06/20/2024 4:11 PM EDT So noted. Scheduled adjusted * Telephone Encounter - Ira Chicas - 06/20/2024 1:46 PM EDT Patient called to confirm appointment for 06/22 and then mention that she was discharged from [facility] onSunday 06/19 for dehydration. documented in this encounterSelect [facility]-26-2024 Telephone encounter Note * Telephone Encounter - Ira Chicas - 06/20/2024 1:46 PM EDT Patient called to confirm appointment for 06/22 and then mention that she was discharged from [facility] onSunday 06/19 for dehydration. [facility]08-24-2024 [facility]-16-2024 Telephone encounter Note* Telephone Encounter - Nya De Oliveira RN - 06/10/2024 1:22 PM EDT Pts daughter called and is notified of providers message and instructions. She voices understanding, and states she will move the Percocet to her house so she can't get into it. She said hopefully wecan get her INR under control. Nya De Oliveira RN [facility]08-16-2024 Miscellaneous Notes* Telephone Encounter - Nya De Oliveira RN - 06/10/2024 1:22 PM EDT Pts daughter called and is notified of providers message and instructions. She voices understanding, and states she will move the Percocet to her house so she can't get into it. She said hopefully wecan get her INR under control. Nya De Oliveira RN * Telephone Encounter - Joon Lopez MD - 06/10/2024 1:13 PM EDT Written as if for 7 days since [...] 7 days. Authorizing Provider: JOON LOPEZ MD * Telephone Encounter - Hilaria Avina RN - 06/10/2024 11:47 AM EDT Daughter, Brooke, returned call and given provider's message below. Brooke reports patient is eating normally, they are making sure of that. Reports patient will be off of coumadin this weekend per Dr. Emerson. Brooke would like pcp to send rx for the oxycodone to [facility]. * Telephone Encounter - Carolina Kuo LPN - 06/10/2024 11:40 AM EDT LEFT MESSAGE FOR PATIENT's daughter TO CALL OFFICE. * Telephone Encounter - Joon Lopez MD - 06/10/2024 9:14 AM EDT Probably the Tylenol on the Percocet is contributing to elevated INR. If cardiology lowered the dose, it could be adequate to balance out the pain med and lowering pain med might result in INR getting to low, but one option would be to switch to oxycodone if needing touse pain med longer. Avoiding NSAIDs already (or should be) Other issue would be if patient not eating as well due to pain in which case this would be the reason and not just the pain med. See if patient eating normally. * Telephone Encounter - Yuko Ordonez RN - 06/10/2024 8:53 AM EDT Patient's daughter Brooke calls and states that royal's INR has been high. Today's INR 5.2 which is managed by [facility]. Brooke concerned with the amount [...] the roof? If staff cannot reach daughter onher cell phone, please call daughters work number. Please review and advise, Yuko Ordonez RN documented [facility] encounter[facility] Telephone encounter Note * Telephone Encounter - Joon Lopez MD - 06/10/2024 1:13 PM EDT Written as if for 7 days since [...] 7 days. Authorizing Provider: JOON LOPEZ MD [facility]24 Telephone encounter Note* Telephone Encounter - Hilaria Avina RN - 06/10/2024 11:47 AM EDT DaughterBrooke, returned call and given provider's message below. Brooke reports patient is eating normally, they are making sure of that. Reports patient will be off of coumadin this weekend per Dr. Emerson. Brooke would like pcp to send rx for the oxycodone to [facility]. [facility] Telephone encounter Note* Telephone Encounter - Carolina Kuo LPN - 06/10/2024 11:40 AM EDT LEFT MESSAGE FOR PATIENT's daughter TO CALL OFFICE. [facility] Telephone encounter Note* Telephone Encounter - Joon Lopez MD - 06/10/2024 9:14 AM EDT Probably the Tylenol on the Percocet is contributing to elevated INR. If cardiology lowered the dose, it could be adequate to balance out the pain med and lowering pain med might result in INR getting to low, but one option would be to switch to oxycodone if needing touse pain med longer. Avoiding NSAIDs already (or should be) Other issue would be if patient not eating as well due to pain in which case this would be the reason and not just the pain med. See if patient eating normally. [facility]-16-2024 Telephone encounter Note* Telephone Encounter - Yuko Ordonez RN - 06/10/2024 8:53 AM EDT Patient's daughter Brooke calls and states that [...] the roof? If staff cannot reach daughter onher cell phone, please call daughters work number. Please review and advise, Yuko Ordonez RN [facility]08-[facility]-2024 Telephone encounter Note* Telephone Encounter - Joon Lopez MD - 06/09/2024 10:13 PM EDT Noted Glad pain getting better. She was able to control pain without Percocet for quite a while. Was tending to get confused so haddecided to stop having Percocet on hand. Agree with TENS for pain control (has helped for a long time). Will await progress report. Closing this encounter. New encounter when Soren calls back [facility]-15-2024 Miscellaneous Notes* Telephone Encounter - Joon Lopez MD - 06/09/2024 10:13 PM EDT Noted Glad pain getting better. She was able to control pain without Percocet for quite a while. Was tending to get confused so haddecided to stop having Percocet on hand. Agree with TENS for pain control (has helped for a long time). Will await progress report. Closing this encounter. New encounter when Soren calls back * Telephone Encounter - Guerline Davila LPN - 06/09/2024 9:49 AM EDT Spoke with Soren with [facility] Soren states that he believes she only stated the Percocet a couple daysago. Daughter had the medication hidden away because was worried she would take too many. He statesthat pain level was 10/10 at first but then by the end that number came down. Patient has OTC acetaminophen and methocarbamo on hand ( not of list) but the OTC acetaminophen has been causing her INR to go up so ultimate hoops referee want her to titrate this down. Methocarbamo was on hand but not on list so he has asked daughter to put this away for now. Patient has tens on and medication seems to be helping so thinks she is okay for now. Nurse will be going over tomorrow for another INR and pain will bereassess at that time. * Telephone Encounter - Joon Lopez MD - 06/08/2024 7:31 PM EDT Does the Percocet or flexeril help at all for the pain? * Telephone Encounter - Roopa Edgar RN - 06/08/2024 9:32 AM EDT Soren with [facility] calls to let provider know that patient [...] provider. Roopa Edgar, RN documented in this encounterSelect [facility] Telephone encounter Note * Telephone Encounter - Guerline Davila LPN - 06/09/2024 9:49 AM EDT Spoke with Soren with [facility] Soren states that he believes she only stated the Percocet a couple daysago. Daughter had the medication hidden away because was worried she would take too many. He statesthat pain level was 10/10 at first but then by the end that number came down. Patient has OTC acetaminophen and methocarbamo on hand ( not of list) but the OTC acetaminophen has been causing her INR to go up so ultimate hoops referee want her to titrate this down. Methocarbamo was on hand but not on list so he has asked daughter to put this away for now. Patient has tens on and medication seems to be helping so thinks she is okay for now. Nurse will be going over tomorrow for another INR and pain will bereassess at that time. [facility]08-14-2024 Telephone encounter Note* Telephone Encounter - Joon Lopez MD - 06/08/2024 7:31 PM EDT Does the Percocet or flexeril help at all for the pain? [facility]-14-2024 Telephone encounter Note* Telephone Encounter - Jamari Maki MA - 06/08/2024 11:34 AM EDT Pt failed to show to geriatric consult. No show letter sent to patient. Jamari Maki MA [facility]08-14-2024 Miscellaneous Notes* Telephone Encounter - Jmaari Maki MA - 06/08/2024 11:34 AM EDT Pt failed to show to geriatric consult. No show letter sent to patient. Jamari Maki MA documented in this encounterSelect [facility]-2024 Telephone encounter Note * Telephone Encounter - Roopa Edgar RN - 06/08/2024 9:32 AM EDT Soren with [facility] calls to let provider know that [...] recommendations for pain control from provider. Roopa Edgar RN [facility]08-09-2024 Telephone encounter Note* Telephone Encounter - Carmela Kennedy LPN - 06/03/2024 8:57 AM EDT Patient given results and verbalized understanding of instructions given. Carmela Kennedy LPN [facility]08-09-2024 Miscellaneous Notes* Telephone Encounter - Carmela Kennedy LPN - 06/03/2024 8:57 AM EDT Patient given results and verbalized understanding of instructions given. Carmela Kennedy LPN * Telephone Encounter - Connie Giordano APRN.CNP - 06/03/2024 7:18 AM EDT Please notify caregiver that urine culture showed likely contamination. Patient was sent to ER. If patient still having urinary concerns needs to f/u with pcp for recheck. documented in this encounterSelect [facility] [place]-2024 Telephone encounter Note * Telephone Encounter - Connie Giordano APRN.CNP - 06/03/2024 7:18 AM EDT Please notify caregiver that urine culture showed likely contamination. Patient was sent to ER. If patient still having urinary concerns needs to f/u with pcp for recheck. [facility] Work Phone: [phone]) 136-200808-08-2024 Telephone encounter Note* Telephone Encounter - Guerline Davila LPN - 06/02/2024 2:34 PM EDT Soren from [facility] notified of providers message and verbalized understanding. Consult sent to Dr. Hodges's office. [facility]08-08-2024 Miscellaneous Notes* Telephone Encounter - Guerline Davila LPN - 06/02/2024 2:34 PM EDT Soren from [facility] notified of providers message and verbalized understanding. Consult sent to Dr. Hodges's office. * Telephone Encounter - Trini Tang APRN.CNS - 06/02/2024 2:29 PM EDT Ok please process * Telephone Encounter - Tamy Donis LPN - 06/01/2024 3:19 PM EDT Soren from [facility] calling patient is complaining of more back pain, her TENS unit broke. Family is trying to get another one for her. Daughter was asking for pain management referral, not Dr Agudelo, she was saying Dr Hodges here in [place]. Pending consult, needs diagnosis. Please advise documented in this encounterSelect [facility] [place]-2024 Telephone encounter Note * Telephone Encounter - Trini Tang APRN.WILDLAND FIREFIGHTER - 06/02/2024 2:29 PM EDT Ok please process [facility]08-07-2024 NoteHNO ID: [id number] Author: CLARISSE JOYCE APRN.DOMINGO Service: ? Author Type: Nurse Practitioner Type: Progress Notes Filed: 06/01/2024 17:38 Note Text: This note was created using Photobucket. Subjective Keisha Red is a 79 year old female. 79 year old female with PMH aflutter, HTN, hyperlipidemia, asthma, RAMESH, DM, DDD presents for complaints of possible UTI Acute onset Started today Per home health nurse she was hallucinating. She had weakness, and almost fell while going out of door prior to arrival Of note, patient was evaluated and admitted to [facility] At that time she was evaluated for falls and found to have a UTI Presents with her son today, with concerns she has UTI again. Denies abdominal pain Denies N/V/D Denies burning, frequency, or urgency Patient denies pain. The history is provided by the patient. No modern languages professor was used. PAST MEDICAL HISTORY No date: [...] Right shoulder s/p fall with reduction at [facility] No date: Type II or unspecified type [...] hours as needed for wheezing/shortness of breath. 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) nitrofurantoin macrocrystal (MACRODANTIN) 100 mg capsule [...] Inhale 2 Puffs as instructed twice daily. ([facility] pulmonology) blood sugar diagnostic (BLOOD GLUCOSE [...] for chest pain, palpitations (more content not included)...[facility]08-07-2024 History of Present illness Narrative* Clarisse Joyce APRN.RADAR ENGINEERING TEACHER - 06/01/2024 4:49 PM EDT This note was created using Surfkitchenriter. Subjective Keisha Red is a 79 year old female. 79 year old female with PMH aflutter, HTN, hyperlipidemia, asthma, RAMESH, DM, DDD presents for complaints of possible UTI Acute onset Started today Per home health nurse she was hallucinating. She had weakness, and almost fell while going out of door prior to arrival Of note, patient was evaluated and admitted to [facility] At that time she was evaluated for falls and found to have a UTI Presents with her son today, with concerns she has UTI again. Denies abdominal pain Denies N/V/D Denies burning, frequency, or urgency Patient denies pain. The history is provided by the patient. No modern languages professor was used. PAST MEDICAL HISTORY No date: [...] Right shoulder s/p fall with reduction at [facility] No date: Type II or unspecified type [...] hours as needed for wheezing/shortness of breath. 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) nitrofurantoin macrocrystal (MACRODANTIN) 100 mg capsule [...] by mouth two times a day as needed(for severe back pain and foot pain) for [...] mouth daily at bedtime AND 1 capsule everymorning. Do all this for 180 days. glimepiride [...] Inhale 2 Puffs as instructed twice daily. ([facility] pulmonology) blood sugar diagnostic (BLOOD GLUCOSE [...] further evaluation - URINE CULTURE Clarisse Joyce APRN.RADAR ENGINEERING TEACHER documented in this encounterSelect [facility]-2024 Telephone encounter Note * Telephone Encounter - Tamy Donis LPN - 06/01/2024 3:19 PM EDT Soren from [facility] calling patient is complaining of more back pain, her TENS unit broke. Family is trying to get another one for her. Daughter was asking for pain management referral, not Dr Agudelo, she was saying Dr Hodges here in [place]. Pending consult, needs diagnosis. Please advise [facility]08-02-2024 Telephone encounter Note* Telephone Encounter - [place] Taniya De Leon - 05/27/2024 11:18 AM EDT Prescription Refill Information The patient has been [...] hours as needed for wheezing/shortness of breath. 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) Patient needs this sent today. She is using her inhaler more due to the weather and therefore, per pharmacy, she has no more refills. Taniya De Leon May 27, 2024 11:19 AM [facility]08-02-2024 Miscellaneous Notes* Telephone Encounter - Taniya Nolan - 05/27/2024 11:18 AM EDT Prescription Refill Information The patient has been [...] hours as needed for wheezing/shortness of breath. 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) Patient needs this sent today. She is using her inhaler more due to the weather and therefore, per pharmacy, she has no more refills. Taniya De Leon May 27, 2024 11:19 AM documented in this encounterSelect [facility]-2024 Telephone encounter Note * Telephone Encounter - Sandy Nunez LPN - 05/12/2024 11:05 AM EDT Images from the original note were not included. Prior authorization approved Payer: [employer] [phone] CaseId:[id number];Status:Approved;Review Type:Prior Auth;Coverage Start Date:04/27/2024;Coverage End Date:05/12/2025; Approval [...] to its destination. To be filled at: [facility] [id number] - [place] [address] [address] [facility] - [phone] Pharmacy notified. [facility]07-18-2024 Miscellaneous Notes* Telephone Encounter - Sandy Nunez LPN - 05/12/2024 11:05 AM EDT Images from the original note were not included. Prior authorization approved Payer: [employer] [phone] CaseId:[id number];Status:Approved;Review Type:Prior Auth;Coverage Start Date:04/27/2024;Coverage End Date:05/12/2025; Approval [...] to its destination. To be filled at: [facility] [address] - [place] [address] [address] [facility] - [phone] Pharmacy notified. documented in this encounterSelect [facility]-2024 Telephone encounter Note * Telephone Encounter - Joon Lopez MD - 05/11/2024 7:16 PM EDT Agreeable to POC [facility]07-17-2024 Miscellaneous Notes* Telephone Encounter - Joon Lopez MD - 05/11/2024 7:16 PM EDT Agreeable to POC * Telephone Encounter - Ira Peralta RN - 05/11/2024 4:32 PM EDT Starr, PT with [facility] calling with plan of care for patient. Physical Therapy will be seeing patient 2 times per week for 4 weeks for lower extremity strength, transfer and gait training, balance and fall prevention. No call back needed if PCP agreeable. Ira Peralta RN documented in this encounterSelect [facility]-2024 Telephone encounter Note * Telephone Encounter - Ira Peralta RN - 05/11/2024 4:32 PM EDT Starr, PT with [facility] calling with plan of care for patient. Physical Therapy will be seeing patient 2 times per week for 4 weeks for lower extremity strength, transfer and gait training, balance and fall prevention. No call back needed if PCP agreeable. Ira Peralta RN [facility]07-17-2024 Telephone encounter Note* Telephone Encounter - Whitney Hammond APRN.CNP - 05/11/2024 2:36 PM EDT Noted, agree. [facility]-17-2024 Miscellaneous Notes* Telephone Encounter - Whitney Hammond APRN.CNP - 05/11/2024 2:36 PM EDT Noted, agree. * Telephone Encounter - Yuko Ordonez RN - 05/11/2024 1:44 PM EDT Steffi VILA calling from [facility] to report plan of care for patient and occupational therapy will visit patient 1 time a week for 5 weeks. Occupational therapy will work with patient on safety and IAdls. No call back needed. Yuko Ordonez RN documented in this encounterSelect [facility]-2024 History of Present illness Narrative* Joon Lopez MD - 05/11/2024 2:20 PM EDT Chief Complaint Patient presents with: Hospital Follow Up HPI Keisha Red is a 79 year old female who presents here today for a Hospital follow up. Pt here today for a [facility] follow up. Here with daughter, Ana Maria. Pt presented to [facility] ED on 05/04/24 with symptoms of confusion [...] other options. Pt is getting HH/PT through [facility] out to her home. Just started yesterday. Uro - Follows with Urology, takes Ditropan XL 10 mg once daily. Treated UTI with Macrobid 100 mg bid for 5 days. [facility] Report: HPI - General General Date of [...] Complicated UTIs w/ persistent history of bilateral hydrourete ronephrosis with previous history of distal ureteral stricture following with Dr. Samaniego with most recent intervention 12/2023 with cystoscopy with right ureteral stent placement 01/22/24 and unfortunately continued right hydronephrosis on repeat imaging with appropriate urine output and planned [facility] outpatient follow-up, recent ED evaluation earlier in the day at approximately 1519 with historyof unfortunate fall with head injury and back discomfort noted to been on the gravel driveway stepping into a depression unfortunately leading to her falling backwards with no loss of consciousness bu tsince then some mid back discomfort extending over into the posterior right chest wall with a mildheadache and bleeding from the occiput secondary to the fall onto the rocks prompting evaluation atthat time with appropriate hemoglobin, INR 1.9, urinalysis noted to be turbid with occult blood 250, leukocyte Estrace 500, negative nitrite, urine RBC and a BCs greater than 100 although urine squamous epithelial cells unfortunately high 10-25 with 3+ urine bacteria however this was repeated and similarly even with appropriate squamous epithelial cells was still significant, CT of the brain withmild soft tissue swelling of the scalp posterior to the parietal lobes without any associated skullfracture or intracranial bleeding, CT cervical spine with [...] for discomfort who now represents to the [facility] ED later in the evening on 05/04/24 [...] to herself and recent events. EMS did reportthat she was at her baseline but has some chronic confusion. Patient notes that she has a constant d ull aching throb in her right rib laterally [...] In the ED upon re-evaluation patient ministered Maple 1 tab p.o. x 1 and IV [...] does not want to go to a snf facility and is open to home health care. Case management discussed with the family. TEREZA * Unclear etiology but her creatinine was creeping upwards during the course of this hospitalization. * Patient did receive IV fluids on the and that her creatinine is improved today. [...] Right shoulder s/p fall with reduction at [facility] Type II or unspecified type diabetes [...] hours as needed for wheezing/shortness of breath. 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) atorvastatin (LIPITOR) 10 mg tablet Take 1 tablet by mouth once daily. gabapentin (NEURONTIN) 300 mg capsule Take 2 capsules by mouth daily at bedtime AND 1 capsule everymorning. Do all this for 180 days. glimepiride [...] Inhale 2 Puffs as instructed twice daily. ([facility] pulmonology) blood sugar diagnostic (BLOOD GLUCOSE [...] 1-dose 60+ series) due on 09/23/2024 Covid-19 Vaccine(1 - 2022- season) due on 09/23/2024 Pneumococcal Vaccine: 65+(2 [...] adequate sleep. Lidocaine patches had helped at [facility]. Will see if affordable. Discussed can get OTC 4% patches. Avoid too much pain med I spent a total of 35 minutes on the date of the service which included [id number] patient care, completing clinical documentation, obtaining and/or reviewing separately obtained history, performing a medically appropriate examination, counseling and educating the patient/family/caregiver, ordering medications, tests, or procedures, independently interpreting results (not separately reported), and communicating results to the patient/family/caregiver. Joon Lopez MD documented in this encounterSelect [facility]ty [facility]-2024 NoteHNO ID: [id number] Author: JOON LOPEZ MD Service: ? Author Type: Physician Type: Progress Notes Filed: 06/18/2024 22:16 Note Text: Chief Complaint Patient presents with: Hospital Follow Up HPI Keisha Red is a 79 year old female who presents here today for a Hospital follow up. Pt here today for a [facility] follow up. Here with daughter, Ana Maria. Pt presented to [facility] ED on 05/04/24 with symptoms of confusion [...] other options. Pt is getting HH/PT through [facility] out to her home. Just started yesterday. Uro - Follows with Urology, takes Ditropan XL 10 mg once daily. Treated UTI with Macrobid 100 mg bid for 5 days. [facility] Report: HPI - General General Date of [...] for discomfort who now represents to the [facility] ED later in the evening on 05/04/24 [...] In the ED upon re-evaluation patient ministered Maple 1 tab p.o. x 1 and IV Rocephin 1 g x 1. RAD/Chest 1 View (Portable) IMPRESSION: No acute cardiopulmonary pathology Electronically Signed: Souleymane Mclaughlin MD at 22:48 EDT 05/07/24 Discharge: Diagnosis Discharge Diagnosis (1) Fall: Status: Acute Code(s): W19.XXXA - Unspecified fall, initial encounter (2) Acute cystitis: Status (more content not included)...[facility]07-17-2024 Telephone encounter Note* Telephone Encounter - Yuko Ordonez RN - 05/11/2024 1:44 PM EDT Steffi VILA calling from [facility] to report plan of care for patient and occupational therapy will visit patient 1 time a week for 5 weeks. Occupational therapy will work with patient on safety and IAdls. No call back needed. Yuko Ordonez RN [facility]07-17-2024 Telephone encounter Note* Telephone Encounter - Ira Peralta RN - 05/11/2024 8:23 AM EDT Detailed message left on Chris's identified and secure Home Health voicemail, of message below. Ira Peralta RN [facility]07-17-2024 Miscellaneous Notes* Telephone Encounter - Ira Peralta RN - 05/11/2024 8:23 AM EDT Detailed message left on [facility]'s identified and secure Home Health voicemail, of message below. Ira Peralta RN * Telephone Encounter - Joon Lopez MD - 05/10/2024 8:14 PM EDT Looks like had some acute renal insufficiency [...] her tendency to confusion and memory issues. * Telephone Encounter - Miguelina Parson RN - 05/10/2024 4:18 PM EDT Soren nurse from [facility] calling with admission plan of care. [facility] nursing will see 2 times per week for 1 week then 1 time per week for 4 weeks. Confirming pt's med list. Per [facility] discharge med list, Metformin was stopped by hospitalist and Glimepiride was for 2 mg take 1 tablet once a day. Soren noted that on prescription anyae pt has at home the Glimepiride is ordered as 1 tablet two times a day with meals which is confirmed from [facility] medlist. He is going to continue having the pt take twice daily since Metformin was discontinued. He is unsure why the Metformin was discontinued. Last HgbA1c done in [facility] was 09/23/23 with result 6.5. Appears pt was to have repeated in February but was not done. Had other labs completed but no HgbA1c. Soren has no record of one being done either at [facility] recently. States he has a fasting glucose of 174 done on 05/07/24 at [facility]. Also asked if pt had active Percocet [...] OV appt on 06/22/24. documented in this encounterSelect [facility] Telephone encounter Note * Telephone Encounter - Joon Lopez MD - 05/10/2024 8:14 PM EDT Looks like had some acute renal insufficiency [...] her tendency to confusion and memory issues. [facility]07-16-2024 Telephone encounter Note* Telephone Encounter - Miguelina Parson RN - 05/10/2024 4:18 PM EDT Soren rao from [facility] HH calling with admission plan of care. [facility] nursing will see 2 times per week for 1 week then 1 time per week for 4 weeks. Confirming pt's med list. Per [facility] discharge med list, Metformin was stopped by hospitalist and Glimepiride was for 2 mg take 1 tablet once a day. Soren noted that on prescription tristian pt has at home the Glimepiride is ordered as 1 tablet two times a day with meals which is confirmed from [facility] medlist. He is going to continue having the pt take twice daily since Metformin was discontinued. He is unsure why the Metformin was discontinued. Last HgbA1c done in [facility] was 09/23/23 with result 6.5. Appears pt was to have repeated in February but was not done. Had other labs completed but no HgbA1c. Soren has no record of one being done either at [facility] recently. States he has a fasting glucose of 174 done on 05/07/24 at [facility]. Also asked if pt had active Percocet [...] just keep her OV appt on 06/22/24. [facility]07-15-2024 Telephone encounter Note* Telephone Encounter - Sylwia Chang LPN - 05/09/2024 9:59 AM EDT Starr with [facility] HH aware of Provider message. Denies need for patient to be seen sooner for Office visit than 06/22/24. Sylwia Chang LPN [facility]07-15-2024 Miscellaneous Notes* Telephone Encounter - Sylwia Chang LPN - 05/09/2024 9:59 AM EDT Starr with [facility] HH aware of Provider message. Denies need for patient to be seen sooner for Office visit than 06/22/24. Sylwia Chang LPN * Telephone Encounter - Trini Tang APRN.CNS - 05/06/2024 4:15 PM EDT OK for HHC. She has a PCP visit 06/22/2024, does she need to be seen sooner for hospital discharge follow up? Schedule appt if so. * Telephone Encounter - Roopa Edgar RN - 05/06/2024 2:33 PM EDT Starr with [facility] HH calls to ask if provider would be willing to follow HH orders for SN, PT, OT, and SW following discharge from [facility] for fall with contusion/laceration of scalp, lumbar strain, and UTI. HH plans to see patient ThursdayMay 10 after discharge and asking for ok for Delay in SOC as well. Please review and advise, Roopa Edgar RN documented [facility]07-12-2024 Telephone encounter Note* Telephone Encounter - Trini Tang APRN.WILDLAND FIREFIGHTER - 05/06/2024 4:15 PM EDT OK for HHC. She has a PCP visit 06/22/2024, does she need to be seen sooner for hospital discharge follow up? Schedule appt if so. [facility]07-12-2024 Telephone encounter Note* Telephone Encounter - Roopa Edgar RN - 05/06/2024 2:33 PM EDT Starr with [facility] HH calls to ask if provider would be willing to follow HH orders for SN, PT, OT, and SW following discharge from [facility] for fall with contusion/laceration of scalp, lumbar strain, and UTI. HH plans to see patient ThursdayMay 10 after discharge and asking for ok for Delay in SOC as well. Please review and advise, Roopa Edgar RN [facility]06-12-2024 Telephone encounter Note* Telephone Encounter - Miguelina Olmstead LPN - 04/06/2024 2:39 PM EDT TC to pt. LM to call office, ask for triage nurse to get results. Miguelina Olmstead LPN [facility]06-12-2024 Miscellaneous Notes* Telephone Encounter - Miguelina Olmstead LPN - 04/06/2024 2:39 PM EDT TC to pt. LM to call office, ask for triage nurse to get results. Miguelina Olmstead LPN * Telephone Encounter - Whitney Hammond APRN.CNP - 04/06/2024 2:35 PM EDT Labs show vitamin b12, magnesium and vitamin d are low. Please let her know I sent in daily supplements for her to start to replace these. Whitney Hammond APRN.DOMINGO documented in this encounterSelect [facility] [place] Telephone encounter Note * Telephone Encounter - Whitney Hammond APRN.DOMINGO - 04/06/2024 2:35 PM EDT Labs show vitamin b12, magnesium and vitamin d are low. Please let her know I sent in daily supplements for her to start to replace these. Whitney Hammond APRN.DOMINGO [facility]05-31-2024 Telephone encounter Note* Telephone Encounter - Sylwia Chang LPN - 03/25/2024 1:23 PM EDT Spoke with patient's daughter Dian, she will poultry picking machine tender letter from Medical records in a few minutes. Nursing to take to MR. Sylwia Wang BOONE Chang [facility]05-31-2024 Miscellaneous Notes* Telephone Encounter - Sylwia Chang LPN - 03/25/2024 1:23 PM EDT Spoke with patient's daughter Dian, she will poultry picking machine tender letter from Medical records in a few minutes. Nursing to take to MR. Sylwia Wang BOONE Chang * Telephone Encounter - Joon Lopez MD - 03/25/2024 1:13 PM EDT Did letter * Telephone Encounter - Nya De Oliveira RN - 03/24/2024 3:08 PM EDT Pts daughter called in and reports her and her mother were going to go to [facility] on Thursday or Thursday next week. She was asking if Pts provider could write her a letter for her to bring with them. She states her mother has a pacemaker, asthma, COPD, Bronchitis, and dementia. She statesshe is on a fixed income and they are going to see what programs they can get her enrolled into to help pay for her propane and electric. Dian states she will come in and poultry picking machine tender the letter. Please call and advise. documented in this encounter[facility] Telephone encounter Note * Telephone Encounter - Joon Lopez MD - 03/25/2024 1:13 PM EDT Did letter [facility]05-30-2024 Telephone encounter Note* Telephone Encounter - Nya De Oliveira RN - 03/24/2024 3:08 PM EDT Pts daughter called in and reports her and her mother were going to go to [facility] on Thursday or Thursday next week. She was asking if Pts provider could write her a letter for her to bring with them. She states her mother has a pacemaker, asthma, COPD, Bronchitis, and dementia. She statesshe is on a fixed income and they are going to see what programs they can get her enrolled into to help pay for her propane and electric. Dian states she will come in and poultry picking machine tender the letter. Please call and advise. [facility]05-28-2024 Telephone encounter Note* Telephone Encounter - Carolina Kuo LPN - 03/22/2024 3:10 PM EDT Results faxed to [facility]. [facility]05-28-2024 Miscellaneous Notes* Telephone Encounter - Carolina Kuo LPN - 03/22/2024 3:10 PM EDT Results faxed to [facility]. * Telephone Encounter - Whitney Hammond APRN.CNP - 03/22/2024 3:02 PM EDT Can we please forward today's INR result to [facility]. Per patient they manage her INR/coumadin. documented in this encounterSelect [facility] Telephone encounter Note * Telephone Encounter - Whitney Hammond APRN.CNP - 03/22/2024 3:02 PM EDT Can we please forward today's INR result to [facility]. Per patient they manage her INR/coumadin. [facility]05-28-2024 Instructions* Patient Instructions* Whitney Hammond APRN.CNP - 03/22/2024 9:02 AM [...] also dairy and gluten. documented in this encounterSelect [facility] History of Present illness Narrative* Whitney Hammond APRN.CNP - 03/22/2024 8:54 AM EDT SUBJECTIVE Keisha Red is a 79 year [...] Hard time falling asleep at night. Her dogsnores and this keeps her up. She does not snore. Some concerns about looser stools lately. Some incontinence but aware this is occurring. Blood sugars are doing really good. Family has noticed some memory changes. More forgetful. Not sure when she was supposed to follow up on her INR, [facility] manages INR for a fib. Her medications were reviewed today and her list is now up to date. Medications Current Outpatient Medications Medication Sig triamcinolone acetonide (KENALOG) 0.1 % cream Apply 1 application to affected area three times daily as needed. For rash on extremities and leg budesonide-formoterol (SYMBICORT) 160-4.5 mcg/actuation inhaler Inhale 2 Puffs as instructed twice daily. ([facility] pulmonology) warfarin (COUMADIN) 5 mg tablet Take [...] hours as needed for wheezing/shortness of breath. 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) atorvastatin (LIPITOR) 10 mg tablet Take 1 tablet by mouth once daily. gabapentin (NEURONTIN) 300 mg capsule Take 2 capsules by mouth daily at bedtime AND 1 capsule everymorning. Do all this for 180 days. glimepiride [...] Hemorrhagic Disorder Due to Extrinsic Circulating Anticoagulants ([facility]) - 09/23/2023 Ulcer of Right Lower Extremity With Fat Layer Exposed ([facility]) - 07/26/2023 Pulmonary Hypertension ([facility]) - 05/03/2023 Ramesh (Obstructive Sleep Apnea) - 01/21/2021 Pacemaker - 01/21/2021 Bilateral Carpal Tunnel Syndrome - 01/21/2021 Atrial Flutter ([facility]) - 04/12/2019 Anticoagulated On Coumadin - 04/12/2019 Severe Low Back Pain - 12/28/2018 Ddd (Degenerative Disc Disease), Lumbar Comment: Dr. Agudelo Muscle Spasm Rotator Cuff Tear - 05/06/2011 Diabetes Mellitus Type 2, Controlled, Without Complications ([facility]) Hyperlipemia - 12/19/2010 Back Strain, [...] today and we can forward results to [facility] 5. Atrial flutter, unspecified type [...] from today's visit and in agreement with treatmentplan. Questions answered. Agrees to call the office [...] as well as compliance with taking medications. Age- appropriate health preventative measures were discussed. Return if symptoms worsen or fail to improve, for Keep next scheduled appointment.. Whitney Hammond APRN-DOMINGO documented in this encounterSelect [facility]24 Telephone encounter Note * Telephone Encounter - Jamari Maki MA - 03/22/2024 8:33 AM EDT Pharmacy request denied. Patient needs to contact office for refills. Jamari Maki MA [facility]05-28-2024 Miscellaneous Notes* Telephone Encounter - Jamari Maki MA - 03/22/2024 8:33 AM EDT Pharmacy request denied. Patient needs to contact office for refills. Jamari Maki MA documented in this encounterSelect [facility]-2024 Telephone encounter Note * Telephone Encounter - Sandy Nunez LPN - 03/18/2024 3:52 PM EDT My chart message to pt. [facility]05-24-2024 Miscellaneous Notes* Telephone Encounter - Sandy Nunez LPN - 03/18/2024 3:52 PM EDT My chart message to pt. * Telephone Encounter - Trini Tang APRN.CNS - 03/18/2024 3:26 PM EDT OK order is in, check with patient to see if wanting to schedule * Telephone Encounter - Starr Lopez - 03/17/2024 11:52 AM EDT Patient's insurance, [employer], called to report that the patient recently experienced a fracture on her left elbow. She is eligible to have a bone density scan 05/07/24. Order pended, please contact patient when order is signed and available for scheduling. documented in this encounterSelect [facility]24 Telephone encounter Note * Telephone Encounter - Trini Tang APRN.CNS - 03/18/2024 3:26 PM EDT OK order is in, check with patient to see if wanting to schedule [facility]05-23-2024 Telephone encounter Note* Telephone Encounter - Starr Lopez - 03/17/2024 11:52 AM EDT Patient's insurance, [employer], called to report that the patient recently experienced a fracture on her left elbow. She is eligible to have a bone density scan 05/07/24. Order pended, please contact patient when order is signed and available for scheduling. [facility]04-10-2024 History of Present illness Narrative* Joon Lopez MD - 02/03/2024 10:59 AM EDT This note was created using Surfkitchenriter. Subjective Keisha Red is a 78 year [...] Right shoulder s/p fall with reduction at [facility] Type II or unspecified type diabetes mellitus without mention of complication, not stated as uncontrolled Unspecified asthma(493.90) Unspecified essential hypertension Current Outpatient Medications Medication Sig albuterol HFA (PROAIR HFA) 90 mcg/actuation inhaler Inhale 2 Puffs as instructed every 4 hours as needed for wheezing/shortness of breath. 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 tens unit electrodes (TENS UNITS ELECTRODES) 2X2 pads Change pad every month as indicated gabapentin (NEURONTIN) 300 mg capsule Take 2 capsules by mouth daily at bedtime AND 1 capsule everymorning. Do all this for 180 days. triamcinolone acetonide (KENALOG) 0.1 % cream Apply 1 application to affected area three times daily as needed. For rash on extremities and leg budesonide-formoterol (SYMBICORT) 160-4.5 mcg/actuation inhaler Inhale 2 Puffs as instructed twice daily. ([facility] pulmonology) blood sugar diagnostic (BLOOD GLUCOSE [...] Height as of 01/07/22: 167.6 cm (5' 6). Weight as of this encounter: 86.2 kg [...] normal. Judgment: Judgment normal. Reviewed labs from [facility]. Assessment and Plan Encounter Diagnosis ICD-10-CM 1. [...] the date of the service which included [id number] patient care, completing clinical documentation, obtaining and/or reviewing separately obtained history, performing a medically appropriate examination, counseling and educating the patient/family/caregiver, ordering medications, tests, or procedures, independently interpreting results (not separately reported), and communicating results to the patient/family/caregiver. Joon Lopez MD documented in [place] encounterRichard [place] [id number] Discharge summary Author Tonio Glass [facility] January 30, 2024 3:00pm Note Date/Time January 30, 2024 2:00 pm [facility] Medical Records Department [address] [place] [address] Discharge Summary 01/30/24 1400 MR#: [id number] Acct: [id number] Name: KEISHA RED Rep #:[id number] : 1945 78 From: Tonio jensen DO PCP: Dr. Joon Lopez MD Status:SEBASTIAN CARDENAS Location: [place] [address] Providers Date of Admission: 01/29/24 Date of Discharge: 01/30/24 Primary Care Physician: Dr. Joon Lopez MD Consultations 01/30/24 07:39 Consult: Urology Routine Consulting Provider: Devyn Samaniego Reason for Consult: known to you, persistent b/l hydronephrosis EMERGENT Consult: No MD Notified: Yes Date Notified: 01/30/24 Time Notified: 08:35 Method of Notification: Verbal Reason For Visit: DIZZINESS, RESTRICTED TO ADL Diagnosis Discharge Diagnosis (1) Lightheadedness: Status: Acute Code(s): R42 - Dizziness and giddiness Medications at Discharge Home Medications warfarin 5 mg tablet 5 mg PO SUMOTUWESA blood thinner 11/18/18 atorvastatin 10 mg tablet 10 mg PO QHS cholesterol 12/11/19 TENS unit electrodes #2 ea 07/11/20 oxycodone-acetaminophen 5 mg-325 mg tablet 1 tab PO Q8H PRN severe pain (scale score 7-10) 12/07/20 metformin 500 mg tablet,extended release 24 hr 1,000 mg PO BID DM 06/17/22 gabapentin 300 mg capsule 300 mg PO BREAKFAST nerve pain 08/04/22 gabapentin 300 mg capsule 600 mg PO QHS Neuropathy 08/04/22 albuterol sulfate 90 mcg/actuation aerosol inhaler 2 puff inhalation Q4H PRN shortness of breath or wheezing #8.5 grams 11/26/23 warfarin 2.5 mg tablet (Jantoven) 2.5 mg PO THFR blood thinner 12/30/23 budesonide-formoterol HFA 160 mcg-4.5 mcg/actuation aerosol inhaler (Symbicort) 2 puff inhalation BID asthma #10.2 grams 01/20/24 cyclobenzaprine 10 mg tablet 10 mg PO TID PRN muscle spasm 01/22/24 magnesium oxide 400 mg PO DAILY SUPPLEMENT 01/29/24 Hospital Course Operations None Procedures - (CT abdomen pelvis without contrast, CT Abdo pelvis with IV contrast, chest x- ray, CT brain without contrast) Summary of Care Provided Minutes Spent on Discharge: 35 Hospital Course: Patient is a 78-year-old female who presented to [facility] ED on 01/29/2024 with dizziness/lightheadedness and worsening weakness at home. Short hospital course as noted below. Discharged home in stable condition on 01/29. 1. Dizziness/lightheadedness and worsening weakness, improved Lives at home alone, had lightheadedness and dizziness with standing with reported syncopal episode on day prior to admission. Was seen at [place] [facility], pacemaker interrogation was normal, vitals and labs normal UA normal, was discharged home. However patient continued to have symptoms and daughter was concerned because patient lives alone so they brought her to our ED for further evaluation. Workup in our ED was also fairly benign. Chest x-ray nonacute. CTbrain without contrast nonacute. CT Abdo pelvis without contrast with known bilateral hydronephrosis noted, no other new findings. Orthostatic vitals negative. COVID/flu/RSV negative. Labs benign. ? Patient reported significant improvement symptomatically with IV fluid resuscitation on admission. PT/OT/case management followed. Patient did very well with therapy on 01/29, recommendation was for home without any therapy needs. Discharged home with no therapy needs in stable condition on 01/29. 2. Chronic right-sided hydronephrosis with recent ureteral stent placement ? Dr. Samaniego with Urology followed. Patient had cystoscopy with right ureteral stent placement on 01/21, tolerated procedure well. Noted to have continued right hydronephrosis on CT abdomen pelvis without contrast on 01/28. Dr. Samaniego ordered CT abdomen pelvis with IV contrast on 01/29, scan completed but read pending on discharge. Patient had good urine output while inpatient. Spoke with Dr. Samaniego over the phone on 01/29 and he noted that patient was stable for discharge, would follow-up in the outpatient setting in the next week or so. Chronic medical conditions: ? 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 ? Hyperlipidemia: Continue home statin. ? Paroxysmal A-fib/flutter with subtherapeutic INR: INR 1.2 on admit. Continuedhome warfarin. Recommended outpatient follow-up with pharmacy for recommendations on dosing to return to therapeutic INR. ? History of complete heart block s/p pacemaker placement ? Chronic asthma with allergic rhinitis: Continued home inhalers. ? RAMESH: Continue CPAP. Total clinical time spent by myself addressing the patient's medical issues, reviewing all the data, and collaborating with patient's care team: 35 minutes. Physical Exam Const alert, oriented x3 and no apparent distress Constitutional Narrative: Pleasant elderly female, overweight, sitting up comfortably bedside chair, conversing normally, no acute distress. General Appearance: cooperative and comfortable HEENT normocephalic, head/scalp atraumatic, hearing grossly normal bilaterally, nasal mucous membranes and turbinates normal and moist oral mucous membranes Eyes PERRL, EOMs intact bilaterally and conjunctivae normal Neck full ROM Chest inspection of chest normal Resp normal respiratory effort, normal air movement, no use of accessory muscles and clear to auscultation bilaterally Cardio regular rate, regular rhythm, no murmurs and peripheral pulses 2+ throughout GI normal to inspection, nondistended, normoactive bowel sounds, soft to palpation,non-tender and non-distended Back/Spine normal ROM Extremity normal to inspection, full ROM and no pedal edema Skin no rashes or lesions noted Neuro moves all extremities and no focal motor deficits Speech: speech normal Psych mental status grossly normal Weight / BMI Weight Weight: 87.725 kg Body Mass Index (BMI) 29.4 ABG / Lab / Microbiology Data 01/30/24 05:55 01/30/24 05:55 Laboratory: Laboratory Results - last 24 hr 01/29/24 13:50: Urine Color Yellow, Urine Clarity Clear, Urine pH 7.0, Ur Specific Hollister 1.005, Urine Protein 30 H, Urine Glucose (UA) Normal, Urine Ketones Negative, Urine Occult Blood 10 H, Urine Nitrite Negative, Urine Bilirubin Negative, Urine Urobilinogen Normal, Ur Leukocyte Esterase 25 H, UrineRBC 0-5 SEEN, Urine WBC 0- 5 SEEN, Ur Squamous Epith Cells 0-5 SEEN, Urine Bacteria 0 SEEN, Urine Mucus 0 SEEN 01/29/24 14:05: WBC Cancelled, Corrected WBC Cancelled, RBC Cancelled, Hgb Cancelled, Hct Cancelled, MCV Cancelled, MCH Cancelled, MCHC Cancelled, RDW Std Deviation Cancelled, RDW Coeff of Jason Cancelled, Plt Count Cancelled, MPV Cancelled, Immature Gran % (Auto) Cancelled, Neut % (Auto) Cancelled, Lymph % (Auto) Cancelled, Bureau % (Auto) Cancelled, Eos % (Auto) Cancelled, Baso % (Auto)Cancelled, Absolute Neuts (auto) Cancelled, Absolute Lymphs (auto) Cancelled, Total Counted Cancelled, Neutrophils % (Manual) Cancelled, Band Neutrophils % Cancelled, Lymphocytes % (Manual) Cancelled, Monocytes % (Manual) Cancelled, Eosinophils % (Manual) Cancelled, Basophils % (Manual) Cancelled, Metamyelocytes% Cancelled, Myelocytes % Cancelled, Promyelocytes % Cancelled, Blast Cells % Cancelled, Plasma Cell % (Manual) Cancelled, Other Cells % Cancelled, Nucleated RBC % Cancelled, Nucleated RBCs/100 WBC Cancelled, Differential Comment Cancelled, Diff Path Review Cancelled, Hypersegmented Neuts Cancelled, Atypical Lymphocytes Cancelled, Reactive Lymphocytes Cancelled, Smudge Cells Cancelled, Toxic Granulation Cancelled, Toxic Vacuolation Cancelled, Dohle Bodies Cancelled, Dez Rods Cancelled, Platelet Estimate Cancelled, Plt Morphology Comment Cancelled, RBC Morphology Cancelled 01/29/24 14:05: RBC Morphology Cancelled, Polychromasia Cancelled, HypochromasiaCancelled, Basophilic Stippling Cancelled, Anisocytosis Cancelled, Microcytosis Cancelled, Macrocytosis Cancelled, Spherocytes Cancelled, Sickle Cells Cancelled, Target Cells Cancelled, Tear Drop Cells Cancelled, Ovalocytes Cancelled, Stomatocytes Cancelled, [place] Bodies Cancelled, Linden Cells Cancelled,Bite Cells Cancelled, Crenated Cell Cancelled, Acanthocytes (Spur) Cancelled, Rouleaux Cancelled, Schistocytes Cancelled, PT Cancelled, INR Cancelled, Sodium 137, Potassium 4.2, Chloride 107, Carbon Dioxide 24.0, Anion Gap 6, BUN 10, Creatinine 0.82, Estim Creat Clear Calc 69.31, Est GFR (MDRD) Af Amer 87, Est GFR (MDRD) Non-Af 72, BUN/Creatinine Ratio 12.1, Glucose 137 H, Calcium 8.8, Magnesium 1.2 L, Total Bilirubin 1.00, AST 26, ALT 16, Alkaline Phosphatase 90, Troponin I High Sens 18, Total Protein 7.0, Albumin 3.3, Globulin 3.7, Albumin/Globulin Ratio 0.9 01/29/24 14:40: PT 14.8, INR 1.2 01/29/24 15:20: WBC 4.9, RBC 4.46, Hgb 14.2, Hct 44.2, MCV 99.1 H, MCH 31.8, MCHC 32.1, RDW Std Deviation 47.6 H, RDW Coeff of Jason 13.1, Plt Count 136 L, MPV9.6, Immature Gran % (Auto) 0.600, Neut % (Auto) 69.8, Lymph % (Auto) 18.3 L, Bureau % (Auto) 7.7, Eos % (Auto) 2.8, Baso % (Auto) 0.8, Absolute Neuts (auto) 3.4, Absolute Lymphs (auto) 0.90, Nucleated RBC % 0 01/29/24 21:18: POC Glucose 129 H 01/30/24 05:55: WBC 4.5, RBC 3.62 L, Hgb 12.0, Hct 35.8 L, MCV 98.9, MCH 33.1 H,MCHC 33.5, RDW Std Deviation 47.0 H, RDW Coeff of Jason 13.0, Plt Count 110 L, MPV9.3, Immature Gran % (Auto) 0.400, Neut % (Auto) 60.0, Lymph % (Auto) 24.4, Bureau% (Auto) 9.6, Eos % (Auto) 4.7, Baso % (Auto) 0.9, Absolute Neuts (auto) 2.7, Absolute Lymphs (auto) 1.09, Nucleated RBC % 0, Sodium 137, Potassium 3.9, Chloride 108 H, Carbon Dioxide 23.0, Anion Gap 6, BUN 9, Creatinine 0.72, Estim Creat Clear Calc 69.35, Est GFR (MDRD) Af Amer 101, Est GFR (MDRD) Non-Af 83, BUN/Creatinine Ratio 12.4, Glucose 124 H, Calcium 8.2 L, Magnesium 2.2 01/30/24 06:26: POC Glucose 127 H 01/30/24 11:31: POC Glucose 116 H Microbiology: Microbiology 01/29/24 13:50 Mucosa - Nose SARS-CoV-2, Influenza & RSV (PCR) - Final Radiography Diagnostic Testing: Radiology Impression Abdomen/Pelvis CT 01/29/24 13:45 IMPRESSION: Bilateral hydronephrosis and hydroureter more prominent on the right side. A right-sided double-J stent catheter is seen with the proximal tip in the right renal pelvis and distal tip in the bladder. Mild degree of left hydronephrosis. Electronically Signed: Chance Pearl MD at 14:46 EDT , Chest X-Ray 01/29/24 13:45 IMPRESSION: Hyperinflation. The lungs are clear. Electronically Signed: Chance Pearl MD at 14:47 EDT , Brain CT 01/29/24 14:44 IMPRESSION: Chronic involutional changes of the brain. Electronically Signed: Chance Pearl MD at 15:05 EDT , D/C Instructions Discharge Diet: No restrictions Weight Bearing Status: Full weight bearing Meaningful Use Info Meaningful Use Diagnoses (Choose all that apply): None applicable Discharge Plan Admission Admit Date/Time: 01/29/24 16:34 Primary Reason for Your Visit: Dizziness/lightheadedness with weakness Attending Provider: Tonio Glass Primary Care Provider: Joon Lopez Consulting Providers: Josesito Miller; Devyn Samaniego Instructions Additional Instructions / Restrictions: Please follow-up with Dr. Samaniego in the office in the next 1-2 weeks. Continue all other home medications as normal. Discharge Orders/Prescriptions Prescriptions: Continued oxycodone-acetaminophen 5-325 mg tablet 1 tab PO Q8H PRN (Reason: severe pain (scale score 7-10)) (DME) TENS unit electrodes Pad See Rx Instructions .ROUTE .MEDSUPPLY Qty: 2 Rx Instructions: As directed albuterol sulfate 90 mcg/actuation HFA aerosol inhaler 2 puff INHALATION Q4H PRN (Reason: shortness of breath or wheezing) Qty: 8.5 6RF Rx Instructions: administer with spacer warfarin 5 MG tablet 5 mg PO SUMOTUWESA Hold Instructions: Hold return resume when INR is 2.5. Follow-up with PCP Protocol: Dose Management Condition: Thursday Dose/Route: 5 mg Instruction: 1 x 5 mg tablet Condition: Thursday Dose/Route: 5 mg Instruction: 1 x 5 mg tablet Condition: Thursday Dose/Route: 5 mg Instruction: 1 x 5 mg tablet Condition: Thursday Dose/Route: 5 mg Instruction: 1 x 5 mg tablet Condition: Dose/Route: 2.5 mg Instruction: 1 x 2.5 mg tablet Condition: Thursday Dose/Route: 2.5 mg Instruction: 1 x 2.5 mg tablet Condition: Thursday Dose/Route: 5 mg Instruction: 1 x 5 mg tablet Protocol Text: Adjustment Start Date: Thursday01/04/24 INR Value: 2.1 INR Date: 01/04/24 Recheck Date: 01/11/24 atorvastatin 10 MG tablet 10 mg PO QHS gabapentin 300 mg capsule 600 mg PO QHS Patient Comments: Take 2 capsules by mouth daily at bedtime AND 1 capsule every morning. metformin 500 mg tablet extended release 24 hr 1,000 mg PO BID gabapentin 300 mg capsule 300 mg PO BREAKFAST Patient Comments: Take 2 capsules by mouth daily at bedtime AND 1 capsule every morning. Rx Instructions: 300 mg orally; warfarin [Octtoven] 2.5 mg tablet 2.5 mg PO THFR Hold Instructions: Hold it until INR drops less than 2.5. Resume when INR between 2-2.5.. Protocol: Dose Management Condition: Thursday Dose/Route: 5 mg Instruction: 1 x 5 mg tablet Condition: Thursday Dose/Route: 5 mg Instruction: 1 x 5 mg tablet Condition: Thursday Dose/Route: 5 mg Instruction: 1 x 5 mg tablet Condition: Thursday Dose/Route: 5 mg Instruction: 1 x 5 mg tablet Condition: Dose/Route: 2.5 mg Instruction: 1 x 2.5 mg tablet Condition: Thursday Dose/Route: 2.5 mg Instruction: 1 x 2.5 mg tablet Condition: Thursday Dose/Route: 5 mg Instruction: 1 x 5 mg tablet Protocol Text: Adjustment Start Date: Thursday01/04/24 INR Value: 2.1 INR Date: 01/04/24 Recheck Date: 01/11/24 cyclobenzaprine 10 mg tablet 10 mg PO TID PRN (Reason: muscle spasm) magnesium oxide 400 mg magnesium tablet 400 mg PO DAILY Symbicort 160-4.5 mcg/actuation HFA aerosol inhaler 2 puff INHALATION BID Qty: 10.2 11RF Referrals / Follow Up: Joon Lopez MD [Primary Care Provider] - Disposition Disposition (needs filled in before D/C Order can be placed): Home, Self Care Charges/Coding Visit Charges Inpatient E&M: 65827 Disch Hosp >30min 01/30/24 1500 <Electronically signed by Tonio Glass DO> Cosigner Signature (if applicable): CC: Dr. Tonio Glass DO; Dr. Joon Lopez MD~ Signed [facility] Work Phone: 1(105) 785-410204-06-2024 Discharge summary Author Tonio Glass [facility] January 30, 2024 1:59pm Note Date/Time January 30, 2024 1:57 pm [facility] Medical Records Department [address] [place] [id number] Instructions for Home/Discharge Instructions 01/30/24 1355 MR#: [id number] Acct: [id number] Name: KEISHA RED Rep #:[id number] : 1945 78 From: Tonio jensen DO PCP: Dr. Joon Lopez MD Status:SEBASTIAN CARDENAS Discharge Instructions Diet Discharge Diet: No restrictions Activity Discharge Activity: No Restrictions Weight Bearing Status: Full weight bearing Follow Up Care Test Results: Test results from this visit will be discussed in further detail at your follow- up appointment, if applicable. Discharge Plan Admission Admit Date/Time: 01/29/24 16:34 Primary Reason for Your Visit: Dizziness/lightheadedness with weakness Attending Provider: Tonio Glass Primary Care Provider: Joon Lopez Consulting Providers: Josesito Miller; Devyn Samaniego Instructions Additional Instructions / Restrictions: Please follow-up with Dr. Samaniego in the office in the next 1-2 weeks. Continue all other home medications as normal. Discharge Orders/Prescriptions Prescriptions: Continued oxycodone-acetaminophen 5-325 mg tablet 1 tab PO Q8H PRN (Reason: severe pain (scale score 7-10)) (DME) TENS unit electrodes Pad See Rx Instructions .ROUTE .MEDSUPPLY Qty: 2 Rx Instructions: As directed albuterol sulfate 90 mcg/actuation HFA aerosol inhaler 2 puff INHALATION Q4H PRN (Reason: shortness of breath or wheezing) Qty: 8.5 6RF Rx Instructions: administer with spacer warfarin 5 MG tablet 5 mg PO SUMOTUWESA Hold Instructions: Hold return resume when INR is 2.5. Follow-up with PCP Protocol: Dose Management Condition: Thursday Dose/Route: 5 mg Instruction: 1 x 5 mg tablet Condition: Thursday Dose/Route: 5 mg Instruction: 1 x 5 mg tablet Condition: Thursday Dose/Route: 5 mg Instruction: 1 x 5 mg tablet Condition: Thursday Dose/Route: 5 mg Instruction: 1 x 5 mg tablet Condition: Dose/Route: 2.5 mg Instruction: 1 x 2.5 mg tablet Condition: Thursday Dose/Route: 2.5 mg Instruction: 1 x 2.5 mg tablet Condition: Thursday Dose/Route: 5 mg Instruction: 1 x 5 mg tablet Protocol Text: Adjustment Start Date: Thursday01/04/24 INR Value: 2.1 INR Date: 01/04/24 Recheck Date: 01/11/24 atorvastatin 10 MG tablet 10 mg PO QHS gabapentin 300 mg capsule 600 mg PO QHS Patient Comments: Take 2 capsules by mouth daily at bedtime AND 1 capsule every morning. metformin 500 mg tablet extended release 24 hr 1,000 mg PO BID gabapentin 300 mg capsule 300 mg PO BREAKFAST Patient Comments: Take 2 capsules by mouth daily at bedtime AND 1 capsule every morning. Rx Instructions: 300 mg orally; warfarin [Jantoven] 2.5 mg tablet 2.5 mg PO THFR Hold Instructions: Hold it until INR drops less than 2.5. Resume when INR between 2-2.5.. Protocol: Dose Management Condition: Thursday Dose/Route: 5 mg Instruction: 1 x 5 mg tablet Condition: Thursday Dose/Route: 5 mg Instruction: 1 x 5 mg tablet Condition: Thursday Dose/Route: 5 mg Instruction: 1 x 5 mg tablet Condition: Thursday Dose/Route: 5 mg Instruction: 1 x 5 mg tablet Condition: Dose/Route: 2.5 mg Instruction: 1 x 2.5 mg tablet Condition: Thursday Dose/Route: 2.5 mg Instruction: 1 x 2.5 mg tablet Condition: Thursday Dose/Route: 5 mg Instruction: 1 x 5 mg tablet Protocol Text: Adjustment Start Date: Thursday01/04/24 INR Value: 2.1 INR Date: 01/04/24 Recheck Date: 01/11/24 cyclobenzaprine 10 mg tablet 10 mg PO TID PRN (Reason: muscle spasm) magnesium oxide 400 mg magnesium tablet 400 mg PO DAILY Symbicort 160-4.5 mcg/actuation HFA aerosol inhaler 2 puff INHALATION BID Qty: 10.2 11RF Referrals / Follow Up: Joon Lopez MD [Primary Care Provider] - Disposition Disposition (needs filled in before D/C Order can be placed): Home, Self Care 01/30/24 6137<Electronically signed by Tonio Glass DO>Tonio Glass DO CC: Dr. Devyn Samaniego MD; Dr. Joon Lopez MD; Dr. Josesito Miller MD ~ Signed [facility] Work Phone: 1(893) 755-625204-06-2024 Consult note Author Devyn Samaniego [facility] January 30, 2024 8:40am Note Date/Time January 30, 2024 8:40 am [facility] Medical Records Department [address] [place] [address] Consultation - Urology 01/30/2438 MR#: [id number] Acct: [id number] Name: KEISHA RED Rep #:[id number] : 1945 78 From: Devyn Samaniego MD PCP: Dr. Joon Lopez MD Status:SEBASTIAN CARDENAS Location: [place] [id number] HPI Consult Data Date of Consult: 01/30/24 HPI Narrative Reason for Consultation: Right hydronephrosis HPI Narrative: KEISHA RED, is a 78 F who presents to the hospital with some sort of vague complaints she had a CAT scan done that demonstrates the left side she has very minimal hydro this does not look pathologic no interventions necessary. On the right side she does have a stent in place she presented to hospital before with right hydronephrosis and what appeared to be a mass in the distal right ureter she underwent ureteroscopy biopsy but the biopsy came back negative on ureteroscopy she had a narrowed distal right ureter but no obvious mass unless the mass was extraluminal this CAT scan was done without contrast and a repeat CAT scan with IV contrast to get a better look at the distal right ureter. And at some point organ to consider removing the right stent but she does still havea fair amount of right hydronephrosis on the right side despite having a stent in improper position. So for now get a repeat a CAT scan with IV contrast to further evaluate her kidneys. 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 Non-smoker Obesity RAMESH (obstructive sleep apnea) Other secondary pulmonary hypertension Post-menopausal Shortness of breath on exertion Shoulder dislocation Sore on leg Ureteral mass Wears dentures Wears glasses Home Medications warfarin 5 mg tablet 5 mg PO SUMOTUWESA blood thinner 11/18/18 [History Last Taken 01/16/24] atorvastatin 10 mg tablet 10 mg PO QHS cholesterol 12/11/19 [History Last Taken 01/21/24] TENS unit electrodes #2 ea 07/11/20 [History Last Taken Unknown] oxycodone-acetaminophen 5 mg-325 mg tablet 1 tab PO Q8H PRN severe pain (scale score 7-10) 12/07/20 [History Last Taken 01/20/24] metformin 500 mg tablet,extended release 24 hr 1,000 mg PO BID DM 06/17/22 [History Last Taken 01/21/24] gabapentin 300 mg capsule 300 mg PO BREAKFAST nerve pain 08/04/22 [History Last Taken 01/22/24 04:00] gabapentin 300 mg capsule 600 mg PO QHS Neuropathy 08/04/22 [History Last Taken 01/21/24] albuterol sulfate 90 mcg/actuation aerosol inhaler 2 puff inhalation Q4H PRN shortness of breath or wheezing #8.5 grams 11/26/23 [Rx Last Taken 01/22/24 03:00] warfarin 2.5 mg tablet (Jantoven) 2.5 mg PO THFR blood thinner 12/30/23 [History Last Taken 01/16/24] budesonide-formoterol HFA 160 mcg-4.5 mcg/actuation aerosol inhaler (Symbicort) 2 puff inhalation BID asthma #10.2 grams 01/20/24 [Rx Last Taken 01/22/24 03:00] cyclobenzaprine 10 mg tablet 10 mg PO TID PRN muscle spasm 01/22/24 [History Last Taken Unknown] magnesium oxide 400 mg PO DAILY SUPPLEMENT 01/29/24 [History Last Taken Unknown] Allergy/AdvReac Type Severity Reaction Status Date / Time amoxicillin Allergy Severe Hives Verified 01/29/24 13:33 aspirin Allergy Severe Hives, SOB Verified 01/29/24 13:33 Sulfa (Sulfonamide Allergy Severe Hives Verified 01/29/24 13:33 Antibiotics) Family History Mother Diabetes Father CAD (coronary artery disease) Sister Lung cancer Son Kidney stone Surgical History History of appendectomy History of cystoscopy History of kidney surgery Hx of left cataract extraction Hx of right cataract extraction Presence of permanent cardiac pacemaker (04/01/19) Social History (Updated 01/29/24 @ 17:57 by Lisandra Walsh) household members: none housing: house number of children: 3 current occupational status: retired Smoking Status: Never smoker alcohol intake: never substance use type: does not use what type of physical activity do you participate in: none do you feel safe at home: Yes Lab / Micro Data 01/30/24 05:55 01/30/24 05:55 Labs: Laboratory Results - last 24 hr 01/29/24 13:50: Urine Color Yellow, Urine Clarity Clear, Urine pH 7.0, Ur Specific [place] 1.005, Urine Protein 30 H, Urine Glucose (UA) Normal, Urine Ketones Negative, Urine Occult Blood 10 H, Urine Nitrite Negative, Urine Bilirubin Negative, Urine Urobilinogen Normal, Ur Leukocyte Esterase 25 H, Urine RBC 0-5 SEEN, Urine WBC 0-5 SEEN, Ur Squamous Epith Cells 0-5 SEEN, Urine Bacteria 0 SEEN, Urine Mucus 0 SEEN 01/29/24 14:05: WBC Cancelled, Corrected WBC Cancelled, RBC Cancelled, Hgb Cancelled, Hct Cancelled, MCV Cancelled, MCH Cancelled, MCHC Cancelled, RDW Std Deviation Cancelled, RDW Coeff of Jason Cancelled, Plt Count Cancelled, MPV Cancelled, Immature Gran % (Auto) Cancelled, Neut % (Auto) Cancelled, Lymph % (Auto) Cancelled, Bureau % (Auto) Cancelled, Eos % (Auto) Cancelled, Baso % (Auto)Cancelled, Absolute Neuts (auto) Cancelled, Absolute Lymphs (auto) Cancelled, Total Counted Cancelled, Neutrophils % (Manual) Cancelled, Band Neutrophils % Cancelled, Lymphocytes % (Manual) Cancelled, Monocytes % (Manual) Cancelled, Eosinophils % (Manual) Cancelled, Basophils % (Manual) Cancelled, Metamyelocytes% Cancelled, Myelocytes % Cancelled, Promyelocytes % Cancelled, Blast Cells % Cancelled, Plasma Cell % (Manual) Cancelled, Other Cells % Cancelled, Nucleated RBC % Cancelled, Nucleated RBCs/100 WBC Cancelled, Differential Comment Cancelled, Diff Path Review Cancelled, Hypersegmented Neuts Cancelled, Atypical Lymphocytes Cancelled, Reactive Lymphocytes Cancelled, Smudge Cells Cancelled, Toxic Granulation Cancelled, Toxic Vacuolation Cancelled, Dohle Bodies Cancelled, Dez Rods Cancelled, Platelet Estimate Cancelled, Plt Morphology CommentCancelled, RBC Morphology Cancelled 01/29/24 14:05: RBC Morphology Cancelled, Polychromasia Cancelled, HypochromasiaCancelled, Basophilic Stippling Cancelled, Anisocytosis Cancelled, Microcytosis Cancelled, Macrocytosis Cancelled, Spherocytes Cancelled, Sickle Cells Cancelled, Target Cells Cancelled, Tear Drop Cells Cancelled, Ovalocytes Cancelled, Stomatocytes Cancelled, [place] Bodies Cancelled, Bean Cells Cancelled, Bite Cells Cancelled, Crenated Cell Cancelled, Acanthocytes (Spur) Cancelled, Rouleaux Cancelled, Schistocytes Cancelled, PT Cancelled, INR Cancelled, Sodium 137, Potassium 4.2, Chloride 107, Carbon Dioxide 24.0, Anion Gap 6, BUN 10, Creatinine 0.82, Estim Creat Clear Calc 69.31, Est GFR (MDRD) Af Amer 87, Est GFR (MDRD) Non-Af 72, BUN/Creatinine Ratio 12.1, Glucose 137 H, Calcium 8.8, Magnesium 1.2 L, Total Bilirubin 1.00, AST 26, ALT 16, Alkaline Phosphatase 90, Troponin I High Sens 18, Total Protein 7.0, Albumin 3.3, Globulin 3.7, Albumin/Globulin Ratio 0.9 01/29/24 14:40: PT 14.8, INR 1.2 01/29/24 15:20: WBC 4.9, RBC 4.46, Hgb 14.2, Hct 44.2, MCV 99.1 H, MCH 31.8, MCHC 32.1, RDW Std Deviation 47.6 H, RDW Coeff of Jason 13.1, Plt Count 136 L, MPV9.6, Immature Gran % (Auto) 0.600, Neut % (Auto) 69.8, Lymph % (Auto) 18.3 L, Bureau % (Auto) 7.7, Eos % (Auto) 2.8, Baso % (Auto) 0.8, Absolute Neuts (auto) 3.4, Absolute Lymphs (auto) 0.90, Nucleated RBC % 0 01/29/24 21:18: POC Glucose 129 H 01/30/24 05:55: WBC 4.5, RBC 3.62 L, Hgb 12.0, Hct 35.8 L, MCV 98.9, MCH 33.1 H,MCHC 33.5, RDW Std Deviation 47.0 H, RDW Coeff of Jason 13.0, Plt Count 110 L, MPV9.3, Immature Gran % (Auto) 0.400, Neut % (Auto) 60.0, Lymph % (Auto) 24.4, Bureau% (Auto) 9.6, Eos % (Auto) 4.7, Baso % (Auto) 0.9, Absolute Neuts (auto) 2.7, Absolute Lymphs (auto) 1.09, Nucleated RBC % 0, Sodium 137, Potassium 3.9, Chloride 108 H, Carbon Dioxide 23.0, Anion Gap 6, BUN 9, Creatinine 0.72, Estim Creat Clear Calc 69.35, Est GFR (MDRD) Af Amer 101, Est GFR (MDRD) Non-Af 83, BUN/Creatinine Ratio 12.4, Glucose 124 H, Calcium 8.2 L, Magnesium 2.2 01/30/24 06:26: POC Glucose 127 H Micro: Microbiology 01/29/24 13:50 Mucosa - Nose SARS-CoV-2, Influenza & RSV (PCR) - Final Imaging Radiology Impression Abdomen/Pelvis CT 01/29/24 13:45 IMPRESSION: Bilateral hydronephrosis and hydroureter more prominent on the right side. A right-sided double-J stent catheter is seen with the proximal tip in the right renal pelvis and distal tip in the bladder. Mild degree of left hydronephrosis. Electronically Signed: Chance Pearl MD at 14:46 EDT , Chest X-Ray 01/29/24 13:45 IMPRESSION: Hyperinflation. The lungs are clear. Electronically Signed: Chance Pearl MD at 14:47 EDT , Brain CT 01/29/24 14:44 IMPRESSION: Chronic involutional changes of the brain. Electronically Signed: Chance Pearl MD at 15:05 EDT , 01/30/24 0840 <Electronically signed by Devyn Samaniego MD> Cosigner Signature (if applicable): CC: Dr. Devyn Samaniego MD; Dr. Joon Lopez MD; Dr. Josesito Miller MD~ Signed [facility] Work Phone: 1(585) 575-962104-05-2024 Discharge summary Author Miguel Perera [facility] January 29, 2024 8:16pm Note Date/Time January 29, 2024 1:43 pm [facility] Medical Records Department [address] [place] [address] Emergency Department Summary 01/29/24 MR#: [id number] Acct: [id number] Name: KEISHA RED Rep #:[id number] : 1945 78 From: Miguel Galvan PCP: Dr. Joon Lopez MD Status:SEBASTIAN CARDENAS Location: [address] <Dr[address] Miguel Perera DO - Last Filed: 01/29/24 20:16> History of Present Illness Chief Complaint: Dizziness <GREGORY Lombardo - Last Filed: 01/29/24 16:50> Narrative Narrative: 78-year-old female with PMH of HTN, HLD, DM2, atrial flutter, pulmonary hypertension, pacemaker, asthma presents with 2 days of lightheadedness with standing and syncopal episode yesterday. After syncope she was seen at [facility] and reports having a normal pacemaker interrogation, labs and EKG, and urinalysis. She lives alone and this morning called her daughter stating she felt to weak to get out of her recliner. Her daughter came over and had her drink a bottle of water and eat toast and cheese and the patient felt a little better. However around 1 PM she was coughing and then developed 1 episode of emesis and dry heaving so they brought her in again for evaluation. She reportsa cough over the last 2 days. No fever or chills. No chest pain or shortness of breath. She has a history of asthma and obstructive sleep apnea. She also had a recent ureteral stent placed by Dr. Samaniego and states she has had normal urination without hematuria or burning. [facility] <Dr. 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 Contact dermatitis and other eczema COVID-19 CPAP (continuous positive airway pressure) dependence DDD (degenerative disc disease) Diabetes mellitus Dietary restriction Essential hypertension Fracture of left elbow History of complete heart block History of echocardiogram History of stress test Hx of bladder infections Hydronephrosis, right Hyperlipidemia Hypersomnia USP (current) use of anticoagulants Non-smoker Obesity RAMESH (obstructive sleep apnea) Other secondary pulmonary hypertension Post-menopausal Shortness of breath on exertion Shoulder dislocation Sore on leg Ureteral mass Wears dentures Wears glasses Home Medications warfarin 5 mg tablet 5 mg PO SUMOTUWESA blood thinner 11/18/18 [History Last Taken 01/16/24] atorvastatin 10 mg tablet 10 mg PO QHS cholesterol 12/11/19 [History Last Taken 01/21/24] TENS unit electrodes #2 ea 07/11/20 [History Last Taken Unknown] oxycodone-acetaminophen 5 mg-325 mg tablet 1 tab PO Q8H PRN severe pain (scale score 7-10) 12/07/20 [History Last Taken 01/20/24] metformin 500 mg tablet,extended release 24 hr 1,000 mg PO BID DM 06/17/22 [History Last Taken 01/21/24] gabapentin 300 mg capsule 300 mg PO BREAKFAST nerve pain 08/04/22 [History Last Taken 01/22/24 04:00] gabapentin 300 mg capsule 600 mg PO QHS Neuropathy 08/04/22 [History Last Taken 01/21/24] albuterol sulfate 90 mcg/actuation aerosol inhaler 2 puff inhalation Q4H PRN shortness of breath or wheezing #8.5 grams 11/26/23 [Rx Last Taken 01/22/24 03:00] warfarin 2.5 mg tablet (Jantoven) 2.5 mg PO THFR blood thinner 12/30/23 [History Last Taken 01/16/24] budesonide-formoterol HFA 160 mcg-4.5 mcg/actuation aerosol inhaler (Symbicort) 2 puff inhalation BID asthma #10.2 grams 01/20/24 [Rx Last Taken 01/22/24 03:00] cyclobenzaprine 10 mg tablet 10 mg PO TID PRN muscle spasm 01/22/24 [History Last Taken Unknown] magnesium oxide 400 mg PO DAILY SUPPLEMENT 01/29/24 [History Last Taken Unknown] Allergy/AdvReac Type Severity Reaction Status Date / Time amoxicillin Allergy Severe Hives Verified 01/29/24 13:33 aspirin Allergy Severe Hives, SOB Verified 01/29/24 13:33 Sulfa (Sulfonamide Allergy Severe Hives Verified 01/29/24 13:33 Antibiotics) Family History Mother Diabetes Father CAD (coronary artery disease) Sister Lung cancer Son Kidney stone Surgical History History of appendectomy History of cystoscopy History of kidney surgery Hx of left cataract extraction Hx of right cataract extraction Presence of permanent cardiac pacemaker (04/01/19) Social History (Updated 01/29/24 @ 17:57 by Lisandra Walsh) household members: none housing: house number of children: 3 current occupational status: retired Smoking Status: Never smoker alcohol intake: never substance use type: does not use what type of physical activity do you participate in: none do you feel safe at home: Yes ROS <GREGORY Lombardo - Last Filed: 01/29/24 16:50> ROS ED ROS Narrative Constitutional: Negative for fever, chills. CVS: Negative for palpitations, chest pain. Respiratory: Positive for cough. Negative for shortness of breath. GI: Positive for nausea, vomiting. Negative for abdominal pain, diarrhea, constipation, melena, hematochezia. : Negative for dysuria, hematuria. Neuro: Negative for headache. EXAM <Dr. Miguel Perera DO - Last Filed: 01/29/24 20:16> Physical Exam Const Vital Signs: 01/29/24 13:35 01/29/24 13:37 01/29/24 14:37 Temperature 97.9 F 97.9 F Temperature Source Oral Oral Pulse Rate 73 72 Respiratory Rate 18 16 Respiratory Effort Normal Non-Labored Respiratory Pattern Normal Blood Pressure 139/113 H 151/73 H Blood Pressure Mean 121 99 Pulse Ox 98 98 Oxygen Delivery Method Room Air Room Air 01/29/24 15:43 Temperature 98 F Temperature Source Oral Pulse Rate 72 Respiratory Rate 16 Respiratory Effort Respiratory Pattern Blood Pressure 143/70 H Blood Pressure Mean 94 Pulse Ox 98 Oxygen Delivery Method Room Air <GREGORY Lombardo - Last Filed: 01/29/24 16:50> Physical Exam Narrative Exam Narrative: CONST: Patient sitting in no acute distress. EYES: Normal inspection. ENT: Normal inspection, moist mucous membranes. NECK: Normal inspection. RESP: No respiratory distress, CTAB. CVS: Regular rate and rhythm, no murmur, no gallop. ABD: Soft with mild tenderness LLQ, no guarding or rebound. Back: Normal inspection, no CVA tenderness. SKIN: Color normal, no rash, warm, dry, intact. EXTREMITIES: Normal appearance, no pedal edema. NEURO: Oriented x4. PSYCH: Normal affect. Const Vital Signs: 01/29/24 13:35 01/29/24 13:37 01/29/24 14:37 Temperature 97.9 F 97.9 F Temperature Source Oral Oral Pulse Rate 73 72 Respiratory Rate 18 16 Respiratory Effort Normal Non-Labored Respiratory Pattern Normal Blood Pressure 139/113 H 151/73 H Blood Pressure Mean 121 99 Pulse Ox 98 98 Oxygen Delivery Method Room Air Room Air 01/29/24 15:43 Temperature 98 F Temperature Source Oral Pulse Rate 72 Respiratory Rate 16 Respiratory Effort Respiratory Pattern Blood Pressure 143/70 H Blood Pressure Mean 94 Pulse Ox 98 Oxygen Delivery Method Room Air [facility] <Dr. Miguel Perera DO - Last Filed: 01/29/24 20:16> [facility] Narrative Medical decision making narrative: History gathered from: Patient and daughter Patient was evaluated for lightheadedness, recent cough and vomiting. She appears well and nontoxic. Afebrile with normal vital signs. On exam she has moist mucous membranes, normal cardiopulmonary exam, mild tenderness of left lower abdominal quadrant without peritoneal signs. She reports normal bladder and bowel movements. She has a ureteral stent placed a few weeks ago. CBC and BMP are unremarkable. Glucose 137 is consistent with her diabetes. She is on Coumadin for pacemaker and INR is subtherapeutic at 1.2. CXR and UA showed no evidence of infection. EKG is nonischemic and troponin is negative. At this time no source of the patient's symptoms has been found other than likely viral URI explaining her cough. Patient was able to ambulate around 4:15 PM but states she felt very lightheaded like she did earlier. She also feels very hot and cold. She is afebrile but with possible she has a viral illness with her recent cough although she tested negative for COVID/flu/influenza. She does notfeel comfortable going home where she lives alone. This morning she was so lightheaded/weak she could not get out of her chair unassisted. Case will be discussed with the hospitalist. Attending note: HISTORY OF PRESENT ILLNESS: 78-year-old female presents with dizziness. Patient states this has been ongoing for the past week. Notes at that time she had stents placed in her kidney. She also endorses a cough. She further states REVIEW OF SYSTEMS: Pertinent positives: Dizziness, cough PHYSICAL EXAM: Nursing triage notes reviewed, Vital signs reviewed Constitutional: please see mdm HENT: MMM Eyes: Pupils equal round and reactive to light, Extraocular muscles intact Neck: No stridor, no JVD, full neck ROM Lungs: Clear to auscultation, No wheezing or rales. No increased work of breathing, no conversational dyspnea, no accessory muscle use, no nasal flaring. No respiratory distress noted Heart: Regular rate and rhythm, No murmurs, No rubs and No gallops, 2+ distal pulses (radial, femoral, posterior tibial) in all extremities Abdomen: Soft, there is no tenderness, rigidity, rebound or guarding, no obviousperitoneal signs, no palpable pulsatile abdominal masses, no auscultated abdominal bruit : No CVAT Extremities: No edema Neuro: No focal neurological deficits, cranial nerves II through XII intact, 5/5strength in all extremities. Intact sensation to light touch in all extremities,2+ reflexes bilateral patella tendons. Normal gait. No ataxia. Skin: No rash or lesions noted MEDICAL DECISION MAKING: Chief Complaint: Dizziness, cough External records reviewed: Prior ED records reviewed: Seen in the ED on 12/29/2023for back pain and diagnosed with nephrolithiasis, UTI. Urology was consulted atthat time patient underwent cystoscopy and right retrograde pyelogram Factors affecting care: Type 2 diabetes, hyperlipidemia, A-fib status post ablation status post pacemaker, kidney stone MDM Narrative: Patient was hemodynamically stable, afebrile, nontoxic-appearing. I considered the following differential diagnosis: UTI, anemia, coagulopathy, dehydration, renal failure, COVID, pneumonia, ACS, arrhythmia We will obtain a broad lab and imaging workup to further elucidate etiology patient's complaints including PT/INR The patient and/or family, caregivers express understanding. The patient and/orfamily, caregivers agrees with the plan. Shared decision making: I will have a discussion with the patient and or visitors regarding risk/benefits of further testing or admission. They will be made aware of of the risk/benefits inherent in this decision they will be given the opportunity to voice understanding. Total critical care time today provided was at least 0 minutes. This excludes separately billable procedures. Critical care time (if documented) is secondary to the patient having high probability of clinically significant/life threatening deterioration in the patient's condition which required my urgent intervention. Impression: 1. Dizziness 2. Cough Dispo: Pending labs, images, reassessment, vital sign reassessment, shared decision-making discussion This note was generated with [employer] dictation software. It may contain incorrectwords, spelling, and punctuation that were not noted in review of the chart prior to signing. Lab Data Labs: Laboratory Results - last 24 hr 01/29/24 01/29/24 01/29/24 13:50 14:05 14:05 WBC Cancelled Corrected WBC Cancelled RBC Cancelled Hgb Cancelled Hct Cancelled MCV Cancelled MCH Cancelled MCHC Cancelled RDW Std Deviation Cancelled RDW Coeff of Jason Cancelled Plt Count Cancelled MPV Cancelled Immature Gran % (Auto) Cancelled Neut % (Auto) Cancelled Lymph % (Auto) Cancelled Bureau % (Auto) Cancelled Eos % (Auto) Cancelled Baso % (Auto) Cancelled Absolute Neuts (auto) Cancelled Absolute Lymphs (auto) Cancelled Total Counted Cancelled Neutrophils % (Manual) Cancelled Band Neutrophils % Cancelled Lymphocytes % (Manual) Cancelled Monocytes % (Manual) Cancelled Eosinophils % (Manual) Cancelled Basophils % (Manual) Cancelled Metamyelocytes % Cancelled Myelocytes % Cancelled Promyelocytes % Cancelled Blast Cells % Cancelled Plasma Cell % (Manual) Cancelled Other Cells % Cancelled Nucleated RBC % Cancelled Nucleated RBCs/100 WBC Cancelled Differential Comment Cancelled Diff Path Review Cancelled Hypersegmented Neuts Cancelled Atypical Lymphocytes Cancelled Reactive Lymphocytes Cancelled Smudge Cells Cancelled Toxic Granulation Cancelled Toxic Vacuolation Cancelled Dohle Bodies Cancelled Dez Rods Cancelled Platelet Estimate Cancelled Plt Morphology Comment Cancelled RBC Morphology Cancelled Cancelled Polychromasia Cancelled Hypochromasia Cancelled Basophilic Stippling Cancelled Anisocytosis Cancelled Microcytosis Cancelled Macrocytosis Cancelled Spherocytes Cancelled Sickle Cells Cancelled Target Cells Cancelled Tear Drop Cells Cancelled Ovalocytes Cancelled Stomatocytes Cancelled [place] Bodies Cancelled [place] Cells Cancelled Bite Cells Cancelled Crenated Cell Cancelled Acanthocytes (Spur) Cancelled Rouleaux Cancelled Schistocytes Cancelled PT Cancelled INR Cancelled Sodium 137 Potassium 4.2 Chloride 107 Carbon Dioxide 24.0 Anion Gap 6 BUN 10 Creatinine 0.82 Estim Creat Clear Calc 69.31 Est GFR (MDRD) Af Amer 87 Est GFR (MDRD) Non-Af 72 BUN/Creatinine Ratio 12.1 Glucose 137 H Calcium 8.8 Magnesium 1.2 L Total Bilirubin 1.00 AST 26 ALT 16 Alkaline Phosphatase 90 Troponin I High Sens 18 Total Protein 7.0 Albumin 3.3 Globulin 3.7 Albumin/Globulin Ratio 0.9 Urine Color Yellow Urine Clarity Clear Urine pH 7.0 Ur Specific [place] 1.005 Urine Protein 30 H Urine Glucose (UA) Normal Urine Ketones Negative Urine Occult Blood 10 H Urine Nitrite Negative Urine Bilirubin Negative Urine Urobilinogen Normal Ur Leukocyte Esterase 25 H Urine RBC 0-5 SEEN Urine WBC 0-5 SEEN Ur Squamous Epith Cells 0-5 SEEN Urine Bacteria 0 SEEN Urine Mucus 0 SEEN 01/29/24 01/29/24 14:40 15:20 WBC 4.9 Corrected WBC RBC 4.46 Hgb 14.2 Hct 44.2 MCV 99.1 H MCH 31.8 MCHC 32.1 RDW Std Deviation 47.6 H RDW Coeff of Jason 13.1 Plt Count 136 L MPV 9.6 Immature Gran % (Auto) 0.600 Neut % (Auto) 69.8 Lymph % (Auto) 18.3 L Bureau % (Auto) 7.7 Eos % (Auto) 2.8 Baso % (Auto) 0.8 Absolute Neuts (auto) 3.4 Absolute Lymphs (auto) 0.90 Total Counted Neutrophils % (Manual) Band Neutrophils % Lymphocytes % (Manual) Monocytes % (Manual) Eosinophils % (Manual) Basophils % (Manual) Metamyelocytes % Myelocytes % Promyelocytes % Blast Cells % Plasma Cell % (Manual) Other Cells % Nucleated RBC % 0 Nucleated RBCs/100 WBC Differential Comment Diff Path Review Hypersegmented Neuts Atypical Lymphocytes Reactive Lymphocytes Smudge Cells Toxic Granulation Toxic Vacuolation Dohle Bodies Dez Rods Platelet Estimate Plt Morphology Comment RBC Morphology Polychromasia Hypochromasia Basophilic Stippling Anisocytosis Microcytosis Macrocytosis Spherocytes Sickle Cells Target Cells Tear Drop Cells Ovalocytes Stomatocytes [place] Bodies [place] Cells Bite Cells Crenated Cell Acanthocytes (Spur) Rouleaux Schistocytes PT 14.8 INR 1.2 Sodium Potassium Chloride Carbon Dioxide Anion Gap BUN Creatinine Estim Creat Clear Calc Est GFR (MDRD) Af Amer Est GFR (MDRD) Non-Af BUN/Creatinine Ratio Glucose Calcium Magnesium Total Bilirubin AST ALT Alkaline Phosphatase Troponin I High Sens Total Protein Albumin Globulin Albumin/Globulin Ratio Urine Color Urine Clarity Urine pH Ur Specific [place] Urine Protein Urine Glucose (UA) Urine Ketones Urine Occult Blood Urine Nitrite Urine Bilirubin Urine Urobilinogen Ur Leukocyte Esterase Urine RBC Urine WBC Ur Squamous Epith Cells Urine Bacteria Urine Mucus Radiography Diagnostic Testing: Clinical Impression(s) from Imaging Studies Abdomen/Pelvis CT 01/29/24 13:45 IMPRESSION: Bilateral hydronephrosis and hydroureter more prominent on the right side. A right-sided double-J stent catheter is seen with the proximal tip in the right renal pelvis and distal tip in the bladder. Mild degree of left hydronephrosis. Electronically Signed: Chance Pearl MD at 14:46 EDT , Chest X-Ray 01/29/24 13:45 IMPRESSION: Hyperinflation. The lungs are clear. Electronically Signed: Chance Pearl MD at 14:47 EDT , Brain CT 01/29/24 14:44 IMPRESSION: Chronic involutional changes of the brain. Electronically Signed: Chance Pearl MD at 15:05 EDT , <GREGORY Lombardo - Last Filed: 01/29/24 16:50> [facility] Narrative Medical decision making narrative: History gathered from: Patient and daughter Patient was evaluated for lightheadedness, recent cough and vomiting. She appears well and nontoxic. Afebrile with normal vital signs. On exam she has moist mucous membranes, normal cardiopulmonary exam, mild tenderness of left lower abdominal quadrant without peritoneal signs. She reports normal bladder and bowel movements. She has a ureteral stent placed a few weeks ago. CBC and BMP are unremarkable. Glucose 137 is consistent with her diabetes. She is on Coumadin for pacemaker and INR is subtherapeutic at 1.2. CXR and UA showed no evidence of infection. EKG is nonischemic and troponin is negative. At this time no source of the patient's symptoms has been found other than likely viral URI explaining her cough. Patient was able to ambulate around 4:15 PM but states she felt very lightheaded like she did earlier. She also feels very hot and cold. She is afebrile but with possible she has a viral illness with her recent cough although she tested negative for COVID/flu/influenza. She does notfeel comfortable going home where she lives alone. This morning she was so lightheaded/weak she could not get out of her chair unassisted. Case will be discussed with the hospitalist. Attending note: HISTORY OF PRESENT ILLNESS: 78-year-old female presents with dizziness. Patient states this has been ongoing for the past week. Notes at that time she had stents placed in her kidney. She also endorses a cough. She further states REVIEW OF SYSTEMS: Pertinent positives: Dizziness, cough Pertinent negatives: [] PHYSICAL EXAM: Nursing triage notes reviewed, Vital signs reviewed Constitutional: please see mdm HENT: MMM Eyes: Pupils equal round and reactive to light, Extraocular muscles intact Neck: No stridor, no JVD, full neck ROM Lungs: Clear to auscultation, No wheezing or rales. No increased work of breathing, no conversational dyspnea, no accessory muscle use, no nasal flaring. No respiratory distress noted Heart: Regular rate and rhythm, No murmurs, No rubs and No gallops, 2+ distal pulses (radial, femoral, posterior tibial) in all extremities Abdomen: Soft, there is no tenderness, rigidity, rebound or guarding, no obvious peritoneal signs, no palpable pulsatile abdominal masses, no auscultated abdominal bruit : No CVAT Extremities: No edema Neuro: No focal neurological deficits, cranial nerves II through XII intact, 5/5 strength in all extremities. Intact sensation to light touch in all extremities, 2+ reflexes bilateral patella tendons. Normal gait. No ataxia. Skin: No rash or lesions noted MEDICAL DECISION MAKING: Chief Complaint: Dizziness, cough External records reviewed: Prior ED records reviewed: Seen in the ED on 12/29/2023 for back pain and diagnosed with nephrolithiasis, UTI. Urology was consulted at that time patient underwent cystoscopy and right retrograde pyelogram Factors affecting care: Type 2 diabetes, hyperlipidemia, A-fib status post ablation status post pacemaker, kidney stone MDM Narrative: Patient was hemodynamically stable, afebrile, nontoxic-appearing. I considered the following differential diagnosis: UTI, anemia, coagulopathy, dehydration, renal failure, COVID, pneumonia, ACS, arrhythmia We will obtain a broad lab and imaging workup to further elucidate etiology patient's complaints including PT/INR The patient and/or family, caregivers express understanding. The patient and/or family, caregivers agrees with the plan. Shared decision making: I will have a discussion with the patient and or visitors regarding risk/benefits of further testing or admission. They will be made aware of of the risk/benefits inherent in this decision they will be given the opportunity to voice understanding. Total critical care time today provided was at least 0 [] minutes. This excludes separately billable procedures. Critical care time (if documented) is secondary to the patient having high probability of clinically significant/life threatening deterioration in the patient's condition which required my urgent intervention. Impression: 1. Dizziness 2. Cough Dispo: Pending labs, images, reassessment, vital sign reassessment, shared decision-making discussion This note was generated with [employer] software. It may contain incorrect words, spelling, and punctuation that were not noted in review of the chart prior to signing. Lab Data Attestation: I reviewed the patient's lab results. Labs: Laboratory Results - last 24 hr 01/29/24 01/29/24 01/29/24 13:50 14:05 14:05 WBC Cancelled Corrected WBC Cancelled RBC Cancelled Hgb Cancelled Hct Cancelled MCV Cancelled MCH Cancelled MCHC Cancelled RDW Std Deviation Cancelled RDW Coeff of Jason Cancelled Plt Count Cancelled MPV Cancelled Immature Gran % (Auto) Cancelled Neut % (Auto) Cancelled Lymph % (Auto) Cancelled Bureau % (Auto) Cancelled Eos % (Auto) Cancelled Baso % (Auto) Cancelled Absolute Neuts (auto) Cancelled Absolute Lymphs (auto) Cancelled Total Counted Cancelled Neutrophils % (Manual) Cancelled Band Neutrophils % Cancelled Lymphocytes % (Manual) Cancelled Monocytes % (Manual) Cancelled Eosinophils % (Manual) Cancelled Basophils % (Manual) Cancelled Metamyelocytes % Cancelled Myelocytes % Cancelled Promyelocytes % Cancelled Blast Cells % Cancelled Plasma Cell % (Manual) Cancelled Other Cells % Cancelled Nucleated RBC % Cancelled Nucleated RBCs/100 WBC Cancelled Differential Comment Cancelled Diff Path Review Cancelled Hypersegmented Neuts Cancelled Atypical Lymphocytes Cancelled Reactive Lymphocytes Cancelled Smudge Cells Cancelled Toxic Granulation Cancelled Toxic Vacuolation Cancelled Dohle Bodies Cancelled Dez Rods Cancelled Platelet Estimate Cancelled Plt Morphology Comment Cancelled RBC Morphology Cancelled Cancelled Polychromasia Cancelled Hypochromasia Cancelled Basophilic Stippling Cancelled Anisocytosis Cancelled Microcytosis Cancelled Macrocytosis Cancelled Spherocytes Cancelled Sickle Cells Cancelled Target Cells Cancelled Tear Drop Cells Cancelled Ovalocytes Cancelled Stomatocytes Cancelled [place] Bodies Cancelled [place] Cells Cancelled Bite Cells Cancelled Crenated Cell Cancelled Acanthocytes (Spur) Cancelled Rouleaux Cancelled Schistocytes Cancelled PT Cancelled INR Cancelled Sodium 137 Potassium 4.2 Chloride 107 Carbon Dioxide 24.0 Anion Gap 6 BUN 10 Creatinine 0.82 Estim Creat Clear Calc 69.31 Est GFR (MDRD) Af Amer 87 Est GFR (MDRD) Non-Af 72 BUN/Creatinine Ratio 12.1 Glucose 137 H Calcium 8.8 Magnesium 1.2 L Total Bilirubin 1.00 AST 26 ALT 16 Alkaline Phosphatase 90 Troponin I High Sens 18 Total Protein 7.0 Albumin 3.3 Globulin 3.7 Albumin/Globulin Ratio 0.9 Urine Color Yellow Urine Clarity Clear Urine pH 7.0 Ur Specific [place] 1.005 Urine Protein 30 H Urine Glucose (UA) Normal Urine Ketones Negative Urine Occult Blood 10 H Urine Nitrite Negative Urine Bilirubin Negative Urine Urobilinogen Normal Ur Leukocyte Esterase 25 H Urine RBC 0-5 SEEN Urine WBC 0-5 SEEN Ur Squamous Epith Cells 0-5 SEEN Urine Bacteria 0 SEEN Urine Mucus 0 SEEN 01/29/24 01/29/24 14:40 15:20 WBC 4.9 Corrected WBC RBC 4.46 Hgb 14.2 Hct 44.2 MCV 99.1 H MCH 31.8 MCHC 32.1 RDW Std Deviation 47.6 H RDW Coeff of Jason 13.1 Plt Count 136 L MPV 9.6 Immature Gran % (Auto) 0.600 Neut % (Auto) 69.8 Lymph % (Auto) 18.3 L Bureau % (Auto) 7.7 Eos % (Auto) 2.8 Baso % (Auto) 0.8 Absolute Neuts (auto) 3.4 Absolute Lymphs (auto) 0.90 Total Counted Neutrophils % (Manual) Band Neutrophils % Lymphocytes % (Manual) Monocytes % (Manual) Eosinophils % (Manual) Basophils % (Manual) Metamyelocytes % Myelocytes % Promyelocytes % Blast Cells % Plasma Cell % (Manual) Other Cells % Nucleated RBC % 0 Nucleated RBCs/100 WBC Differential Comment Diff Path Review Hypersegmented Neuts Atypical Lymphocytes Reactive Lymphocytes Smudge Cells Toxic Granulation Toxic Vacuolation Dohle Bodies Dez Rods Platelet Estimate Plt Morphology Comment RBC Morphology Polychromasia Hypochromasia Basophilic Stippling Anisocytosis Microcytosis Macrocytosis Spherocytes Sickle Cells Target Cells Tear Drop Cells Ovalocytes Stomatocytes [place] Bodies [place] Cells Bite Cells Crenated Cell Acanthocytes (Spur) Rouleaux Schistocytes PT 14.8 INR 1.2 Sodium Potassium Chloride Carbon Dioxide Anion Gap BUN Creatinine Estim Creat Clear Calc Est GFR (MDRD) Af Amer Est GFR (MDRD) Non-Af BUN/Creatinine Ratio Glucose Calcium Magnesium Total Bilirubin AST ALT Alkaline Phosphatase Troponin I High Sens Total Protein Albumin Globulin Albumin/Globulin Ratio Urine Color Urine Clarity Urine pH Ur Specific [place] Urine Protein Urine Glucose (UA) Urine Ketones Urine Occult Blood Urine Nitrite Urine Bilirubin Urine Urobilinogen Ur Leukocyte Esterase Urine RBC Urine WBC Ur Squamous Epith Cells Urine Bacteria Urine Mucus Radiography Diagnostic Testing: Clinical Impression(s) from Imaging Studies Abdomen/Pelvis CT 01/29/24 13:45 IMPRESSION: Bilateral hydronephrosis and hydroureter more prominent on the right side. A right-sided double-J stent catheter is seen with the proximal tip in the right renal pelvis and distal tip in the bladder. Mild degree of left hydronephrosis. Electronically Signed: Chance Pearl MD at 14:46 EDT , Chest X-Ray 01/29/24 13:45 IMPRESSION: Hyperinflation. The lungs are clear. Electronically Signed: Chance Pearl MD at 14:47 EDT , Brain CT 01/29/24 14:44 IMPRESSION: Chronic involutional changes of the brain. Electronically Signed: Chance Pearl MD at 15:05 EDT , ED attending interpretation of 1-view chest x-ray shows normal heart size, no acute infiltrate. EKG Initial EKG: Attestation: I personally reviewed and interpreted this EKG as follows: Comments: Ventricular paced rhythm at 69 bpm Discharge Plan Dx/Rx/DC Orders Clinical Impression: Acute URI, Lightheadedness, Subtherapeutic international normalized ratio (INR) Disposition Disposition: Acute Care [facility] Discharge Date/Time: 01/29/24 17:27 What to do if you have Problems For any increased pain, shortness of breath, bleeding, nausea or vomiting, chest pain, or any unexpected problems, contact your Primary Care Provider. Call [facility] ([phone]) or report to the closest Emergency Room. Call 911 if necessary. 01/29/242015 <Electronically signed by Miguel Perera DO> Cosigner Signature (if applicable): 01/29/24 1650 <Electronically signed by Meron JENKINS> CC: Dr. Joon Lopez MD ~ Signed [facility] Work Phone: [phone]) 305-323004-05-2024 History and physical note Author Josesito Miller [facility] January 29, 2024 5:11pm Note Date/Time January 29, 2024 4:36 pm [facility] Medical Records Department [address] [place] [address] H&P Exam - Hospitalist 01/29/24 1635 MR#: [id number] Acct: [id number] Name: KEISHA RED Rep #:[id number] : 1945 78 From: Josesito Rico PCP: Dr. Joon Lopez MD Status:RE G ER Location: ED HPI - General General Date of Admission: 01/29/24 Date of Service: 01/29/24 Chief Complaint: Intermittent dizziness. Syncope yesterday. HPI Narrative KEISHA RED, is a 78 F Came to ED for dizziness intermittently. She has nonspecific complaint of not feeling good, fatigue. In ED, most of the evaluations are baseline but patient coming from the bathroom she felt dizzy andunderstated therefore decided for admission. Prior to that, patient went to ED after she passed out at home and was evaluated in altered mental ER. There patient had comprehensive evaluation including pacemaker interrogation was within normal limit and was offered observation but she declined and came to home. She also has right-sided hydronephrosis and left mild hydronephrosis for which she had right ureteric stent [address] Samaniego along with the biopsy of possible tumor in distal right ureter. Patient not having any acute urine complaints including burning micturition, hematuria. She completed antibiotic for ciprofloxacin but was diagnosed about 2weeks ago. 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 Non-smoker Obesity RAMESH (obstructive sleep apnea) Other secondary pulmonary hypertension Post-menopausal Shortness of breath on exertion Shoulder dislocation Sore on leg Ureteral mass Wears dentures Wears glasses Home Medications warfarin 5 mg tablet 5 mg PO SUMOTUWESA blood thinner 11/18/18 [History Last Taken 01/16/24] atorvastatin 10 mg tablet 10 mg PO QHS cholesterol 12/11/19 [History Last Taken 01/21/24] TENS unit electrodes #2 ea 07/11/20 [History Last Taken Unknown] oxycodone-acetaminophen 5 mg-325 mg tablet 1 tab PO Q8H PRN severe pain (scale score 7-10) 12/07/20 [History Last Taken 01/20/24] metformin 500 mg tablet,extended release 24 hr 1,000 mg PO BID DM 06/17/22 [History Last Taken 01/21/24] gabapentin 300 mg capsule 300 mg PO BREAKFAST nerve pain 08/04/22 [History Last Taken 01/22/24 04:00] gabapentin 300 mg capsule 600 mg PO QHS Neuropathy 08/04/22 [History Last Taken 01/21/24] albuterol sulfate 90 mcg/actuation aerosol inhaler 2 puff inhalation Q4H PRN shortness of breath or wheezing #8.5 grams 11/26/23 [Rx Last Taken 01/22/24 03:00] warfarin 2.5 mg tablet (Jantoven) 2.5 mg PO THFR blood thinner 12/30/23 [History Last Taken 01/16/24] budesonide-formoterol HFA 160 mcg-4.5 mcg/actuation aerosol inhaler (Symbicort) 2 puff inhalation BID asthma #10.2 grams 01/20/24 [Rx Last Taken 01/22/24 03:00] cyclobenzaprine 10 mg tablet 10 mg PO TID PRN muscle spasm 01/22/24 [History Last Taken Unknown] magnesium oxide 400 mg PO DAILY SUPPLEMENT 01/29/24 [History Last Taken Unknown] Allergy/AdvReac Type Severity Reaction Status Date / Time amoxicillin Allergy Severe Hives Verified 01/29/24 13:33 aspirin Allergy Severe Hives, SOB Verified 01/29/24 13:33 Sulfa (Sulfonamide Allergy Severe Hives Verified 01/29/24 13:33 Antibiotics) Family History Mother Diabetes Father CAD (coronary artery disease) Sister Lung cancer Son Kidney stone Surgical History History of appendectomy History of cystoscopy History of kidney surgery Hx of left cataract extraction Hx of right cataract extraction Presence of permanent cardiac pacemaker (04/01/19) Social History household members: none housing: house number of children: 3 current occupational status: retired Smoking Status: Never smoker alcohol intake: never substance use type: does not use what type of physical activity do you participate in: none do you feel safe at home: Yes ROS ROS Narrative Constitutional: Reports fatigue and weakness. No fever. HEENT: Complain of zigzag line on the right eye, unilateral reports systems reviewed and no addt'l complaints, except as documented Respiratory/Chest: No acute shortness of breath or respiratory distress or wheezing. CVS: No chest pain pressure or tightness Gastrointestinal: Denies coffee ground emesis, hematemesis or vomiting Genitourinary: Right-sided hydronephrosis status post recent stent. Denies acute burning urination or new urinary tract symptoms Musculoskeletal: Chronic arthritis of knees denies acute joint pain or limited range of motion. No acute injury Neurologic: Denies seizure-like symptoms. skin: Venous ulcer on the right leg, chronic Endocrinology: Reports systems reviewed and no addt'l complaints, except as documented Hematologic/Lymphatic: Reports systems reviewed and no addt'l complaints, exceptas documented Rest 14 ROS are negative except as mentioned in HPI Vital Signs Vital Signs Vital Signs: 01/29/24 13:35 01/29/24 13:37 01/29/24 14:37 Temperature 97.9 F 97.9 F Temperature Source Oral Oral Pulse Rate 73 72 Respiratory Rate 18 16 Respiratory Effort Normal Non-Labored Respiratory Pattern Normal Blood Pressure 139/113 H 151/73 H Blood Pressure Mean 121 99 Pulse Ox 98 98 Oxygen Delivery Method Room Air Room Air 01/29/24 15:43 Temperature 98 F Temperature Source Oral Pulse Rate 72 Respiratory Rate 16 Respiratory Effort Respiratory Pattern Blood Pressure 143/70 H Blood Pressure Mean 94 Pulse Ox 98 Oxygen Delivery Method Room Air Weight Weight: 203 lb 4.259 oz Body Mass Index (BMI) 30.9 Physical Exam Narrative General: Alert, Oriented x3, Cooperative HEENT: Atraumatic, PERRLA, EOMI, Normocephalic Oral: Oral mucosa moist no Gingival or Mucosal Lesions/ Ulcerations Neck: Supple, No JVD, Negative Carotid Bruits Chest wall/Lungs: Air entry diminished in bilateral lung bases. No crepitation/rhonchi Cardiovascular: paced rhythm, Normal S1, Normal S2, No M/G/R Abdomen: Bowel Sounds Present, Soft, Non Tender, Non-Distended : No dysuria. No renal angle tenderness. No suprapubic tenderness. Extremities: No edema, Capillary Refill Less than 3 Seconds Skin: Chronic venous changes in both lower legs. Right lower leg is chronic venous ulcer. Left lower leg skin macerated but no opening or ulceration. Musculoskeletal: No Tenderness to Palpation of Joints or Extremities. ROM restricted at knees and knee joints Neurological: Cranial nerves II-XII grossly intact, DTR 2+/4. No acute focal neurological deficit. Psych/Mental Status: Flat affect Results Lab / Micro Data 01/29/24 15:20 01/29/24 14:05 Labs: Laboratory Results - last 24 hr 01/29/24 13:50: Urine Color Yellow, Urine Clarity Clear, Urine pH 7.0, Ur Specific Hollister 1.005, Urine Protein 30 H, Urine Glucose (UA) Normal, Urine Ketones Negative, Urine Occult Blood 10 H, Urine Nitrite Negative, Urine Bilirubin Negative, Urine Urobilinogen Normal, Ur Leukocyte Esterase 25 H, UrineRBC 0-5 SEEN, Urine WBC 0- 5 SEEN, Ur Squamous Epith Cells 0-5 SEEN, Urine Bacteria 0 SEEN, Urine Mucus 0 SEEN 01/29/24 14:05: WBC Cancelled, Corrected WBC Cancelled, RBC Cancelled, Hgb Cancelled, Hct Cancelled, MCV Cancelled, MCH Cancelled, MCHC Cancelled, RDW Std Deviation Cancelled, RDW Coeff of Jason Cancelled, Plt Count Cancelled, MPV Cancelled, Immature Gran % (Auto) Cancelled, Neut % (Auto) Cancelled, Lymph % (Auto) Cancelled, Bureau % (Auto) Cancelled, Eos % (Auto) Cancelled, Baso % (Auto)Cancelled, Absolute Neuts (auto) Cancelled, Absolute Lymphs (auto) Cancelled, Total Counted Cancelled, Neutrophils % (Manual) Cancelled, Band Neutrophils % Cancelled, Lymphocytes % (Manual) Cancelled, Monocytes % (Manual) Cancelled, Eosinophils % (Manual) Cancelled, Basophils % (Manual) Cancelled, Metamyelocytes% Cancelled, Myelocytes % Cancelled, Promyelocytes % Cancelled, Blast Cells % Cancelled, Plasma Cell % (Manual) Cancelled, Other Cells % Cancelled, Nucleated RBC % Cancelled, Nucleated RBCs/100 WBC Cancelled, Differential Comment Cancelled, Diff Path Review Cancelled, Hypersegmented Neuts Cancelled, Atypical Lymphocytes Cancelled, Reactive Lymphocytes Cancelled, Smudge Cells Cancelled, Toxic Granulation Cancelled, Toxic Vacuolation Cancelled, Dohle Bodies Cancelled, Dez Rods Cancelled, Platelet Estimate Cancelled, Plt Morphology Comment Cancelled, RBC Morphology Cancelled 01/29/24 14:05: RBC Morphology Cancelled, Polychromasia Cancelled, HypochromasiaCancelled, Basophilic Stippling Cancelled, Anisocytosis Cancelled, Microcytosis Cancelled, Macrocytosis Cancelled, Spherocytes Cancelled, Sickle Cells Cancelled, Target Cells Cancelled, Tear Drop Cells Cancelled, Ovalocytes Cancelled, Stomatocytes Cancelled, [place] Bodies Cancelled, Bean Cells Cancelled, Bite Cells Cancelled, Crenated Cell Cancelled, Acanthocytes (Spur) Cancelled, Rouleaux Cancelled, Schistocytes Cancelled, PT Cancelled, INR Cancelled, Sodium 137, Potassium 4.2, Chloride 107, Carbon Dioxide 24.0, Anion Gap 6, BUN 10, Creatinine 0.82, Estim Creat Clear Calc 69.31, Est GFR (MDRD) Af Amer 87, Est GFR (MDRD) Non-Af 72, BUN/Creatinine Ratio 12.1, Glucose 137 H, Calcium 8.8, Total Bilirubin 1.00, AST 26, ALT 16, Alkaline Phosphatase 90, Troponin I High Sens 18, Total Protein 7.0, Albumin 3.3, Globulin 3.7, Albumin/Globulin Ratio 0.9 01/29/24 14:40: PT 14.8, INR 1.2 01/29/24 15:20: WBC 4.9, RBC 4.46, Hgb 14.2, Hct 44.2, MCV 99.1 H, MCH 31.8, MCHC 32.1, RDW Std Deviation 47.6 H, RDW Coeff of Jason 13.1, Plt Count 136 L, MPV9.6, Immature Gran % (Auto) 0.600, Neut % (Auto) 69.8, Lymph % (Auto) 18.3 L, Bureau % (Auto) 7.7, Eos % (Auto) 2.8, Baso % (Auto) 0.8, Absolute Neuts (auto) 3.4, Absolute Lymphs (auto) 0.90, Nucleated RBC % 0 Micro: Microbiology 01/29/24 13:50 Mucosa - Nose SARS-CoV-2, Influenza & RSV (PCR) - Final Imaging Radiology Impression Abdomen/Pelvis CT 01/29/24 13:45 IMPRESSION: Bilateral hydronephrosis and hydroureter more prominent on the right side. A right-sided double-J stent catheter is seen with the proximal tip in the right renal pelvis and distal tip in the bladder. Mild degree of left hydronephrosis. Electronically Signed: Chance Pearl MD at 14:46 EDT , Chest X-Ray 01/29/24 13:45 IMPRESSION: Hyperinflation. The lungs are clear. Electronically Signed: Chance Pearl MD at 14:47 EDT , Brain CT 01/29/24 14:44 IMPRESSION: Chronic involutional changes of the brain. Electronically Signed: Chance Pearl MD at 15:05 EDT , Assessment & Plan Assessment/Plan (1) Lightheadedness: PLAN: Plan This 78-year-old female admitted for further evaluation of dizziness lightheadedness. 1. Dizziness lightheadedness decreased/restricted ADL: Patient is being admitted in 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 residential monitor. IV fluid normal saline. Orthostatic blood pressure tomorrow AM. PT and OT evaluation. Empirically started on Claritin. 2. 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 UA done and also looks benign LE 25. Mild proteinuria. 3. Diabetes mellitus type II with chronic neuropathy: Accu-Chek insulin coverage Humalog sliding scale. continue chronic home gabapentin regimen. Patient on gabapentin 300 mg at breakfast 600 mg at bedtime. Will hold it possiblerespiratory rate 20 #4. Hypertension: BP mildly elevated #5. Hyperlipidemia: continue patient on statin therapy. #6. Chronic Kidney Disease Stage III A:BUNs/creatinine 10/0.82. baseline renalfunction primarily 0.9-1.0 #7. PAF/flutter: Was evaluated yesterday. EKG shows rhythm with underlying A- fib/a flutter at 69 bpm. Continue warfarin. INR 1.2. Low #8. History complete heart block: Status post pacemaker placement. #9. Obesity, grade: Weight loss and lifestyle changes encouraged. BMI 30.9 kg/m? #10. Chronic asthma with allergic rhinitis: We will temporally hold home inhalers in the interim placed on ATC budesonide therapy, PRN albuterol, HOB, ISparameters. #11. RAMESH: CPAP nightly. #12. DVT prophylaxis: Continue warfarin Living will/advanced directive/end of life care: Patient does have living will or advanced directive. I talked to the patient's younger daughter over the phone, her POA. After discussion of benefits/risks procedures involved with full code, DNR CC arrest and DNR CC, the patient opted for DNR CC arrest with nointubation Patient doesn't want artificial life support including intubation, tube feed, ventilator and/chest compression, central venous catheter, vasopressor and DC shock if needed Total time spent in [id number] encounter in discussion of advanced directive 17 minutes. Clinical Impression(s) from Imaging Studies Abdomen/Pelvis CT 01/29/24 13:45 IMPRESSION: Bilateral hydronephrosis and hydroureter more prominent on the right side. A right-sided double-J stent catheter is seen with the proximal tip in the right renal pelvis and distal tip in the bladder. Mild degree of left hydronephrosis. Chest X-Ray 01/29/24 13:45 IMPRESSION: Hyperinflation. The lungs are clear. Brain CT 01/29/24 14:44 IMPRESSION: Chronic involutional changes of the brain. Charges/Coding Visit Charges Inpatient E&M: 06637 Init Hosp L2 Procedures Hospitalists Procedures: 46695 Advncd Care Plan 30 Min 01/29/24 1711 <Electronically signed by Josesito Miller MD> Cosigner Signature (if applicable): CC: Dr. Joon Lopez MD; Dr. Josesito Miller MD~ Signed [facility] Work Phone: [phone]) 140-254104-05-2024 Hospital Discharge instructions Patient Education 01/28/2024 23:49:50 [...] the exact cause of your fainting or near- fainting spell, it s possible for you to [...] seeing Extreme drowsiness, confusion, dizziness, or fainting 6081-[address] [employer] [place] [address]. All rights reserved. This information is not intended as a substitute for professional medical care. Always follow yourhealthcare professional's instructions. Follow Up Care 01/28/2024 20:16:13 With:OJON LOPEZ MD Address: [address] [place] [id number]- When:2-4 days [facility] 04-04-2024 Note Discharge Instructions Thank you for allowing [facility] to assist you with your healthcare needs. The following is importantdischarge information regarding your hospital visit. Diagnosis from [...] MD When Within 2-4 days Where: [address] [place] [address]- Allergies amoxicillin penicillin sulfamethoxazole Medications Please ask your primary doctor or pharmacist before taking any other medication not listed, including over the counter drugs, herbal medications, vitamins and or supplements as they may interact withyour home medications. What How Much When Instructions Last Dose Unchanged albuterol (albuterol MDI (90 mcg/ inh) CFC freeinhalation aerosol) 1 puff(s) by inhalation Every 4 [...] the exact cause of your fainting or near- fainting spell, it s possible for you to [...] seeing Extreme drowsiness, confusion, dizziness, or fainting 0186-79[address] [employer]. [address] [place] [address]. All rights reserved. This information is not intended as a substitute for professional medical care. Always follow yourhealthcare professional's instructions. Additional Information VACCINATE! IT SAVES LIVES! Members of the community who have not yet received the COVID-19 vaccine and would like to receive it can visit one of [facility] vaccine clinics. There are many vaccine clinic locations within the [facility]. For locations and available times, please visit www.[email or web address].[place].gov/. It is important to note that some COVID mobile vaccine clinics are held outdoors and may be canceled in rainy or stormy conditions. To learn more about pediatric vaccinations (ages 5-11), we invite you to visit the [facility] webpage. [email or web address]/pages/[email or web address]-[email or web address] stions.htmlTo learn more about the COVID-19 vaccine, we invite you to visit the CDC website for a list of frequently asked questions. https://www.cdc.gov/coronavirus/2019-ncov/vaccines/faq.html [facility] Patient Portal Access Instructions: Stay connected with your healthcare team and access your personal medical information anytime with the [employer] Patient Portal. If you would like a full copy of your medical records please contact the [facility] Medical Records Department Thursday through Thursday between 8a.m. and 4:30p.m. Please follow the directions below to access the portal: 1.Access the email account you provided upon registration to the hospital.2.Look for an invitation email from [facility].3.Open the email and access the invitation link: Accept Invitation to [facility] [employer]4.Fill in the required leger to create your account. Sign into www.[employer] with your username and password that you [...] you will allow to register on the [facility] Patient Portal for access to your information. You can also access the [facility] Patient Portal on the [employer] rivera. Simply click on Health Records under [facility] and then click on the [employer] logo. HOW TO SAFELY DISPOSE OF PRESCRIPTION MEDICATIONS Please use one of the following methods to safely dispose of your unused medications. 1.Use a drug disposal kit: the drug disposal pouch allows you to safely discard your old and unuseddrugs. Ask your nurse to give you one when you are discharged.2.Visit a local take-back location: Many local pharmacies and police departments have programs that collect old and unwanted prescriptiondrugs. Call your local pharmacy or go to http://ZANK.mobi.Livekick/8K3Ua7f to find one close to you.3.Make use of household items: Use cat litter or old coffee grounds to dispose medications if other options arenot available. Mix your drugs with these household products, seal them in an airtight container andthrow it into the garbage. Call [facility]: [phone] to be sure your drugs can be [...] drowsiness, such as benzodiazepines, also known as benzos,including diazepam and alprazolam, muscle relaxants or sleep aids. Never sell or share prescriptionopioids. This is illegal. Store opioids in a [...] aware that I should contact my doctor. Patient/Hand Cell Tuber Signature: Date/Time: Relationship to Patient: Witness Name/Signature: Date/Time: [facility]04-04-2024 Note ORIGINAL EXAMINATION: ONE XRAY VIEW OF [...] Sign Date: 01/28/2024 10:18:43 PM Ordering Provider: NIDAL [facility]04-04-2024 Note Afib/flutter and ventricular-paced rhythm No further analysis attempted due to paced rhythm EKG interpretation is noted and agreed to in [employer]. The interpretation of this patient's EKG contributed directly to the care and management of this patient. Electronic Signature: RUBIO GONZALEZ DO 01/28/2024 21:28:14[facility] 04-04-2024 Miscellaneous Notes* Telephone Encounter - Taylor Ruffin RN - 01/28/2024 7:25 PM EDT DaughterBrooke calling to report mother has new symptoms of severe weakness in legs, unable to walk, stumbling and falling into things when she tries to walk. Patient has nausea/vomiting and is alittle confused per daughter. This nurse spoke briefly [...] in face/no mouth droop Protocols used: Neurologic Yebrinj-PVRNH-BA [facility] [facility]03-12-2024 Miscellaneous Notes* Telephone Encounter - Joon Lopez MD - 01/05/2024 8:07 PM EDT Did MME and discussed memory during appointment. Patient brought up memory after I did MME as a cognition screening for the year. * Telephone Encounter - Any Peacock LPN - 01/04/2024 9:51 AM EDT Daughter Keisha calls to report that pt [...] can be given to the pt at OV tomorrow 01/04. Keisha reports pt will get mad if daughter says anything if front of the dr. Any Peacock LPN documented in this [facility] History of Present illness Narrative* Joon Lopez MD - 01/05/2024 2:56 PM EDT This note was created using [employer]. Subjective Keisha Red is a 78 year [...] Right shoulder s/p fall with reduction at [facility] Type II or unspecified type diabetes mellitus without mention of complication, not stated as uncontrolled Unspecified asthma(493.90) Unspecified essential hypertension Current Outpatient Medications Medication Sig albuterol HFA (PROAIR HFA) 90 mcg/actuation inhaler Inhale 2 Puffs as instructed every 4 hours as needed for wheezing/shortness of breath. 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 tens unit electrodes (TENS UNITS ELECTRODES) 2X2 pads Change pad every month as indicated gabapentin (NEURONTIN) 300 mg capsule Take 2 capsules by mouth daily at bedtime AND 1 capsule everymorning. Do all this for 180 days. triamcinolone acetonide (KENALOG) 0.1 % cream Apply 1 application to affected area three times daily as needed. For rash on extremities and leg budesonide-formoterol (SYMBICORT) 160-4.5 mcg/actuation inhaler Inhale 2 Puffs as instructed twice daily. ([facility] pulmonology) blood sugar diagnostic (BLOOD GLUCOSE [...] the date of the service which included [id number] patient care, completing clinical documentation, obtaining and/or reviewing separately obtained history, performing a medically appropriate examination, counseling and educating the patient/family/caregiver, and ordering medications, tests, or procedures. Joon Lopez MD documented in this encounter[facility] Discharge summary Author Josesito Miller [facility] December 31, 2023 1:26pm Note Date/Time December 31, 2023 12:2 5pm [facility] Medical Records Department [address] [place] [address] Discharge Summary 12/31/23 1224 MR#: [id number] Acct: [id number] Name: NEDAKEISHA L Rep #:[id number] : 1945 78 From: Josesito Rico PCP: Dr. Joon Lopez MD Status:AD M IN [place] [facility] [id number] Providers Date of Admission: 12/29/23 Date of Discharge: 12/31/23 Primary Care Physician: Dr. Joon Lopez MD Consultations 12/30/23 00:22 Consult: Urology Routine Consulting Provider: Devyn Samaniego Reason for Consult: right hydroureteronephrosis with distal ureteral stricture versus mass EMERGENT Consult: No MD Notified: Yes Date Notified: 12/30/23 Time Notified: 06:29 Method of Notification: Text Reason For Visit: UIT, R HYDRO/STONE Diagnosis Discharge Diagnosis (1) UTI (urinary tract infection): Status: Acute Code(s): N39.0 - Urinary tract infection, site not specified Plan The patient is a 78 y/o F was admitted with recent fall on Thursday with discomfort over lower ribs and upper abdomen, hit back of head, buttock. Also patient denies burning pain/dysuria but her daughter states she gets foul-smelling urine and confusion which then turns into UTI. No fever. #1. Acute Encephalopathy secondary to Acute Complicated Urinary Tract Infectioncomplicated by right hydroureteronephrosis with distal ureteral stricture versusmass: [facility] UA positive nitrite LE and pyuria. On empiric IV antibiotics ceftriaxone. Urine culture pending. Patient had cystoscopy with right retrograde pyelogram and urine sent for cytology and stentplacement but biopsy not done because INR elevated 3.3. 01/09: Acute encephalopathy has resolved. E. coli UTI complicated with right hydroureteronephrosis suggestive of pyelonephritis. E. coli is pansensitive. Patient is discharged on ciprofloxacin 500 mg twice daily for 6 more days. Patient had 3 days of IV antibiotics ceftriaxone here. Follow-up with urologistDr. Samaniego to schedule cystoscopy with biopsy in 1 week and holding the warfarinwill be according to the schedule of the procedure. #2. Recent mechanical fall: CT the brain with no acute findings, CT abdomen pelvis as noted above, PT and OT. Fall precaution. #3. Diabetes mellitus type II with chronic neuropathy: Hold oral home regimen, ADA diet until n.p.o. status, accu checks w/ ISS, continue chronic home gabapentin regimen. #4. Hypertension: Clarifying but currently patient does not appear to be on antihypertensive although BP is above goal, will clarify and in the interim we will have as needed IV hydralazine. #5. Hyperlipidemia: We will continue patient on statin therapy. #6. Chronic Kidney Disease Stage III A: Admission BUN/Cr 15/1.03, GFR 55, baseline renal function primarily 0.9-1.0, stable, BMP shows BUNs/creatinine 17/0.92, better than yesterday 15/1.03. #7. PAF/flutter: Status post previous ablation, not on any rate or rhythm agentbut clarifying, holding Coumadin as noted given possible intervention needs. 12/30: INR is still elevated 3.9. PT/INR ordered. Hold it until INR about 2.5 and resume at lower dose in consultation with PCP. Monitor INR daily. Follow with PCP in 2 weeks #8. History complete heart block: Status post pacemaker placement. #9. Obesity: Weight loss and lifestyle changes encouraged. #10. Chronic asthma with allergic rhinitis: We will temporally hold home inhalers in the interim placed on ATC budesonide therapy, PRN albuterol, HOB, ISparameters. #11. RAMESH: CPAP nightly. #12. DVT prophylaxis: Holding Coumadin, presentation INR 3.3. Will repeat INR in a.m. and pending preference per Dr. Samaniego may certainly consider administering FFP for more quick reversal prior to intervention. #13. CODE status: Patient HCPOA and LW are not in place but her daughter would be her decision-maker if necessary she notes. Discussed CODE status at length including difference between FULL code, DNR-CCA and DNR-CC status. Following discussions about the differences in these status, requested Full Code status. Advanced Care Planning Face to Face Time: 16 minutes. Microbiology Past 72 Hours 12/29/23 20:16 Urine, Clean Catch Urine Culture - Preliminary Presumptive E. coli Laboratory Results 12/29/23 19:00: WBC 11.4 H, RBC 4.17 L, Hgb 13.6, Hct 39.8, MCV 95.4, MCH 32.6 H, MCHC 34.2, RDW Std Deviation 43.5, RDW Coeff of Jason 12.4, Plt Count 119 L, MPV9.9, Immature Gran % (Auto) 0.600, Neut % (Auto) 80.5 H, Lymph % (Auto) 11.8 L, Bureau % (Auto) 6.7, Eos % (Auto) 0.1, Baso % (Auto) 0.3, Absolute Neuts (auto) 9.2 H, Absolute Lymphs (auto) 1.35, Nucleated RBC % 0, PT 33.5 H, INR 3.3, Sodium 132 L, Potassium 4.5, Chloride 100, Carbon Dioxide 26.0, Anion Gap 6, BUN15, Creatinine 1.03 H, Est GFR (MDRD) Af Amer 67, Est GFR (MDRD) Non-Af 55 L, BUN/Creatinine Ratio 14.6, Glucose 164 H, Calcium 9.2, Total Bilirubin 1.80 H, AST 32, ALT 15, Alkaline Phosphatase 91, Total Protein 8.3 H, Albumin 3.5, Globulin 4.8 H, Albumin/Globulin Ratio 0.7 L, Lipase < 10 L 12/29/23 20:16: Urine Color Yellow, Urine Clarity Sl. Cloudy, Urine pH 6.5, Ur Specific Hollister 1.010, Urine Protein 30 H, Urine Glucose (UA) Normal, Urine Ketones Negative, Urine Occult Blood 50 H, Urine Nitrite Positive H, Urine Bilirubin Negative, Urine Urobilinogen Normal, Ur Leukocyte Esterase 500 H, Urine RBC 5-10 SEEN, Urine WBC 25-50 SEEN, Ur Squamous Epith Cells 0 SEEN, UrineBacteria 4+, Urine Mucus 0 SEEN 12/30/23 06:40: POC Glucose 123 H 12/30/23 07:05: WBC 7.7, RBC 3.69 L, Hgb 11.7 L, Hct 34.9 L, MCV 94.6, MCH 31.7,MCHC 33.5, RDW Std Deviation 42.3, RDW Coeff of Jason 12.3, Plt Count 114 L, MPV 10.0, Immature Gran % (Auto) 0.600, Neut % (Auto) 76.2 H, Lymph % (Auto) 13.8 L,Bureau % (Auto) 8.3, Eos % (Auto) 0.6, Baso % (Auto) 0.5, Absolute Neuts (auto) 5.9, Absolute Lymphs (auto) 1.07, Nucleated RBC % 0, PT 38.0 H, INR 3.9, Sodium 136, Potassium 3.4 L, Chloride 103, Carbon Dioxide 24.0, Anion Gap 9, BUN 17, Creatinine 0.92, Estim Creat Clear Calc 60.07, Est GFR (MDRD) Af Amer 76, Est GFR (MDRD) Non-Af 63, BUN/Creatinine Ratio 18.4, Glucose 125 H, Calcium 8.4 L, Total Bilirubin 1.00, AST 16, ALT 11 L, Alkaline Phosphatase 71, Total Protein 6.6, Albumin 2.8 L, Globulin 3.8, Albumin/Globulin Ratio 0.7 L 12/30/23 09:36: Miscellaneous Cytology Pending 12/30/23 11:50: POC Glucose 130 H Clinical Impression(s) from Imaging Studies Brain CT 12/29/23 18:30 IMPRESSION: Chronic involutional changes of the brain. Abdomen/Pelvis CT 12/29/23 19:50 IMPRESSION: Right hydroureteronephrosis with distal ureteral stricture versus mass. Cystoscopic correlation recommended. Nodular contour of the liver compatible with cirrhosis. Colonic diverticulosis. No obstruction. No solid organ injury. No acute fracture seen. Chest X-Ray 12/29/23 20:00 IMPRESSION: Degenerative changes, as described above. No demonstrated acute cardiopulmonary process. Electronically Signed: Pete Vazquez MD at 21:27 EST , Medications at Discharge Home Medications warfarin 5 mg tablet 5 mg PO DAILY blood thinner 11/18/18 atorvastatin 10 mg tablet 10 mg PO QHS cholesterol 12/11/19 TENS unit electrodes #2 ea 07/11/20 oxycodone-acetaminophen 5 mg-325 mg tablet 1 tab PO Q8H PRN pain 12/07/20 cyclobenzaprine 10 mg tablet 5 - 10 mg PO BID PRN Spasms 06/17/22 magnesium oxide 400 mg PO DAILY supplement 06/17/22 metformin 500 mg tablet,extended release 24 hr 1,000 mg PO BID DM 06/17/22 gabapentin 300 mg capsule 300 mg PO BREAKFAST nerve pain 08/04/22 gabapentin 300 mg capsule 600 mg PO QHS Neuropathy 08/04/22 albuterol sulfate 90 mcg/actuation aerosol inhaler 2 puff inhalation Q4H PRN shortness of breath or wheezing #8.5 grams 11/26/23 budesonide-formoterol HFA 160 mcg-4.5 mcg/actuation aerosol inhaler (Symbicort) 2 puff inhalation BID asthma #10.2 grams 11/26/23 warfarin 2.5 mg tablet (Jantoven) 2.5 mg PO SUMOTUSA blood thinner 12/30/23 ciprofloxacin HCl 500 mg tablet (Cipro) 500 mg PO BID 6 days #12 tabs 12/31/23 Physical Exam Narrative Seen and examined. Elderly lady. Complain of mild abdominal discomfort yesterday but not today. Had cystoscopy in the morning. No fever or chills. On warfarin Physical exam General: Alert, Oriented x3, Cooperative, BMI 29.2 kg/m? HEENT: Atraumatic, PERRLA, EOMI, Normocephalic Oral: No Gingival or Mucosal Lesions/ Ulcerations Neck: Supple, No JVD, Negative Carotid Bruits Chest wall/Lungs: Air entry diminished in bilateral lung bases. No crepitation/rhonchi Cardiovascular: A-fib, irregular rhythm, Normal S1, Normal S2, systolic murmur over right second ICS. Abdomen: Bowel Sounds Present, Soft, mild tenderness over right hypochondrium. Non-Distended : No dysuria. Mild tenderness over right renal angle. No suprapubic tenderness. Extremities: Mild lower leg pitting edema, Capillary Refill Less than 3 Seconds Skin: No rashes, No breakdown Musculoskeletal: No Tenderness to Palpation of Joints or Extremities. 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 No acute focal neurological deficit. Psych/Mental Status: Normal Affect, Appropriate. Weight / BMI Weight Weight: 192 lb 7.417 oz Body Mass Index (BMI) 29.2 ABG / Lab / Microbiology Data 12/30/23 07:05 12/30/23 07:05 Laboratory: Laboratory Results - last 24 hr 12/30/23 09:36: Miscellaneous Cytology SEE PATHOLOGY REPORT 12/30/23 16:36: POC Glucose 314 H 12/30/23 21:38: POC Glucose 199 H 12/31/23 06:28: POC Glucose 159 H 12/31/23 11:38: POC Glucose 236 H Microbiology: Microbiology 12/29/23 20:16 Urine, Clean Catch Urine Culture - Final Presumptive E. coli Meaningful Use Info Meaningful Use Diagnoses (Choose all that apply): None applicable Discharge Plan Admission Admit Date/Time: 12/29/23 23:01 Attending Provider: Josesito Miller Primary Care Provider: Joon Lopez Consulting Providers: Kassi Fisher; Devyn Samaniego Instructions Additional Instructions / Restrictions: Follow with PCP to monitor INR and resume probably at lower dose. Patient needsto follow-up with Dr. Samaniego, urologist to schedule for cystoscopy with biopsy and hold warfarin prior to the procedure accordingly. Discharge Orders/Prescriptions Prescriptions: New ciprofloxacin HCl [Cipro] 500 mg tablet 500 mg PO BID 6 Days Qty: 12 0RF Continued oxycodone-acetaminophen 5-325 mg tablet 1 tab PO Q8H PRN (Reason: pain) (DME) TENS unit electrodes Pad See Rx Instructions .ROUTE .MEDSUPPLY Qty: 2 Rx Instructions: As directed Symbicort 160-4.5 mcg/actuation HFA aerosol inhaler 2 puff INHALATION BID Qty: 10.2 11RF albuterol sulfate 90 mcg/actuation HFA aerosol inhaler 2 puff INHALATION Q4H PRN (Reason: shortness of breath or wheezing) Qty: 8.5 6RF Rx Instructions: administer with spacer atorvastatin 10 MG tablet 10 mg PO QHS gabapentin 300 mg capsule 600 mg PO QHS cyclobenzaprine 10 mg Tablet 5 - 10 mg PO BID PRN (Reason: Spasms) metformin 500 mg tablet extended release 24 hr 1,000 mg PO BID Patient Comments: Take 2 tablets by mouth twice daily with meals. magnesium oxide 400 mg magnesium Tablet 400 mg PO DAILY gabapentin 300 mg capsule 300 mg PO BREAKFAST Patient Comments: Take 2 capsules by mouth daily at bedtime AND 1 capsule every morning. Rx Instructions: 300 mg orally; Held warfarin 5 MG tablet 5 mg PO DAILY Hold Instructions: Hold return resume when INR is 2.5. Follow-up with PCP Protocol: Dose Management Condition: Thursday Dose/Route: 2.5 mg Instruction: 0.5 x 5 mg tablets Condition: Thursday Dose/Route: 5 mg Instruction: 1 x 5 mg tablet Condition: Thursday Dose/Route: 5 mg Instruction: 1 x 5 mg tablet Condition: Thursday Dose/Route: 5 mg Instruction: 1 x 5 mg tablet Condition: Dose/Route: 5 mg Instruction: 1 x 5 mg tablet Condition: Thursday Dose/Route: 2.5 mg Instruction: 0.5 x 5 mg tablets Condition: Thursday Dose/Route: 2.5 mg Instruction: 0.5 x 5 mg tablets Protocol Text: Adjustment Start Date: Thursday07/10/23 INR Value: 2.3 INR Date: 07/10/23 Recheck Date: 07/31/23 Rx Instructions: 5 mg. , , THU warfarin [Jantoven] 2.5 mg tablet 2.5 mg PO [place] Hold Instructions: Hold it until INR drops less than 2.5. Resume when INR between 2-2.5.. Discontinued cyclobenzaprine 10 mg tablet 10 mg PO TID PRN (Reason: Muscle Spasm) Qty: 20 0RF Hold Instructions: MD Ordered Referrals / Follow Up: Devyn Samaniego MD [Med Staff - Active Staff] - Within 1 Week (Please schedule for cystoscopy with biopsy) Joon Lopez MD [Primary Care Provider] - Within 2 Weeks Disposition Disposition (needs filled in before D/C Order can be placed): Home, Self Care Charges/Coding Visit Charges Inpatient E&M: 61630 Disch Hosp >30min 12/31/23 1325 <Electronically signed by Josesito Miller MD> Cosigner Signature (if applicable): CC: Dr. Joon Lopez MD; Dr. Josesito Miller MD~ Signed ADDENDUM by Dr. Josesito Miller MD on 12/31/23 at 1326 Addendum I talked to her daughter Brooke regarding the line to follow-up with the urologist to follow-up to schedule cystoscopy with biopsy and hold warfarin accordingly as per direction by Dr. Samaniego. As per now INR is still elevated therefore will hold warfarin and repeat PT/INR in 2 days and titrate the dose accordingly as per Dr. Lopez, her PCP 12/31/23 1326<Electronically signed by Josesito Miller MD> Cosigner Signature (if applicable): cc: Dr. Joon Lopez MD; Dr. Josesito Miller MD ~* Signed [facility] Work Phone: 1(954) 167-931803-07-2024 Discharge summary Author Josesito Miller [facility] December 31, 2023 1:15pm Note Date/Time December 31, 2023 12:2 4pm [facility] Medical Records Department [address] [place] [address] Instructions for Home/Discharge Instructions 12/31/23 1224 MR#: [id number] Acct: [id number] Name: KEISHA RED Rep #:[id number] : 1945 78 From: Josesito Rico PCP: Dr. Joon Lopez MD Status:AD M IN Discharge Instructions Diet Discharge Diet: Low fat / Low cholesterol and 2000 mg Sodium Diet Activity Discharge Activity: Return to Normal Activity Weight Bearing Status: Weight bearing as tolerated Dressing / Incision Call your doctor if you observe: Fever of 101 or Higher, Coldness, Increased Pain, Numbness or Tingling, Change in Color, Inability to urinate, Inability to have a bowel movement, Using more than 1 pad per hour, Shortness of breath, Dizziness, Fainting spells, Swelling in the ankles, Chest pain, Prolonged hiccupping, Increased palpitations (irregular heartbeat) and Calf discomfort Follow Up Care When: IN 2 WEEKS Test Results: Test results from this visit will be discussed in further detail at your follow- up appointment, if applicable. Discharge Plan Admission Admit Date/Time: 12/29/23 23:01 Attending Provider: Josesito Miller Primary Care Provider: Joon Lopez Consulting Providers: Kassi Fisher; Devyn Samaniego Instructions Additional Instructions / Restrictions: Follow with PCP to monitor INR and resume probably at lower dose. Patient needsto follow-up with Dr. Samaniego, urologist to schedule for cystoscopy with biopsy and hold warfarin prior to the procedure accordingly. Discharge Orders/Prescriptions Prescriptions: New ciprofloxacin HCl [Cipro] 500 mg tablet 500 mg PO BID 6 Days Qty: 12 0RF Continued oxycodone-acetaminophen 5-325 mg tablet 1 tab PO Q8H PRN (Reason: pain) (DME) TENS unit electrodes Pad See Rx Instructions .ROUTE .MEDSUPPLY Qty: 2 Rx Instructions: As directed Symbicort 160-4.5 mcg/actuation HFA aerosol inhaler 2 puff INHALATION BID Qty: 10.2 11RF albuterol sulfate 90 mcg/actuation HFA aerosol inhaler 2 puff INHALATION Q4H PRN (Reason: shortness of breath or wheezing) Qty: 8.5 6RF Rx Instructions: administer with spacer atorvastatin 10 MG tablet 10 mg PO QHS gabapentin 300 mg capsule 600 mg PO QHS cyclobenzaprine 10 mg Tablet 5 - 10 mg PO BID PRN (Reason: Spasms) metformin 500 mg tablet extended release 24 hr 1,000 mg PO BID Patient Comments: Take 2 tablets by mouth twice daily with meals. magnesium oxide 400 mg magnesium Tablet 400 mg PO DAILY gabapentin 300 mg capsule 300 mg PO BREAKFAST Patient Comments: Take 2 capsules by mouth daily at bedtime AND 1 capsule every morning. Rx Instructions: 300 mg orally; Held warfarin 5 MG tablet 5 mg PO DAILY Hold Instructions: Hold return resume when INR is 2.5. Follow-up with PCP Protocol: Dose Management Condition: Thursday Dose/Route: 2.5 mg Instruction: 0.5 x 5 mg tablets Condition: Thursday Dose/Route: 5 mg Instruction: 1 x 5 mg tablet Condition: Thursday Dose/Route: 5 mg Instruction: 1 x 5 mg tablet Condition: Thursday Dose/Route: 5 mg Instruction: 1 x 5 mg tablet Condition: Dose/Route: 5 mg Instruction: 1 x 5 mg tablet Condition: Thursday Dose/Route: 2.5 mg Instruction: 0.5 x 5 mg tablets Condition: Thursday Dose/Route: 2.5 mg Instruction: 0.5 x 5 mg tablets Protocol Text: Adjustment Start Date: Thursday07/10/23 INR Value: 2.3 INR Date: 07/10/23 Recheck Date: 07/31/23 Rx Instructions: 5 mg. , , THU warfarin [Jantoven] 2.5 mg tablet 2.5 mg PO [place] Hold Instructions: Hold it until INR drops less than 2.5. Resume when INR between 2-2.5.. Discontinued cyclobenzaprine 10 mg tablet 10 mg PO TID PRN (Reason: Muscle Spasm) Qty: 20 0RF Hold Instructions: MD Ordered Referrals / Follow Up: Devyn Samaniego MD [Med Staff - Active Staff] - Within 1 Week (Please schedule for cystoscopy with biopsy) Joon Lopez MD [Primary Care Provider] - Within 2 Weeks Disposition Disposition (needs filled in before D/C Order can be placed): Home, Self Care 12/31/23 1315<Electronically signed by Josesito Miller MD>Josesito Miller MD CC: Dr. Kassi Fisher MD; Dr. Devyn Samaniego MD; Dr. Joon Lopez MD~ Signed [facility] Work Phone: 1(308) 464-579703-07-2024 Consult note Author Devyn Samaniego [facility] December 31, 2023 7:17am Note Date/Time December 31, 2023 7:17 am [facility] Medical Records Department [address] [place] [address] Consultation 12/31/23 0716 MR#: [id number] Acct: [id number] Name: KEISHA RED Rep #:[id number] : 1945 78 From: Devyn Samaniego MD PCP: Dr. 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 She can be discharged home when she stable my office call her and get herset up for outpatient ureteroscopy and biopsy of this mass and options of management. 12/31/23716 <Electronically signed by Devyn Samaniego MD> Cosigner Signature (if applicable): CC: Dr. Kassi Fisher MD; Dr. Devyn Samaniego MD; Dr. Joon Lopez MD~ Signed [facility] Work Phone: 1(431) 187-883803-06-[address] [facility] December 30, 2023 2:49pm Note Date/Time December 30, 2023 9:37 am [facility] Medical Records Department [address] [place] [address] Progress Note - Hospitalist 12/30/23 0934 MR#: [id number] Acct: [id number] Name: KEISHA RED Rep #:[id number] : 1945 78 From: Josesito Rico PCP: Dr. Joon Lopez MD Status:AD M IN Location: [place] [id number] Reason for Visit Reason for Visit: Diagnoses Unspecified hydronephrosis (12/29/23) Other specified disorders of kidney and ureter (12/29/23) Urinary tract infection, site not specified (12/29/23) Objective Data Objective Data Vital Signs: Vital Signs Temp Pulse Resp BP Pulse Ox O2 Del Method O2 Flow Rate 97.8 F 76 18 125/73 H 95 Room Air 96 12/30/23 05:58 12/30/23 08:55 12/30/23 08:55 12/30/23 05:58 12/30/23 05:58 12/30/23 07:52 12/29/23 17:53 Oxygen Flow Rate (L/min) 96 Oxygen Delivery Method Room Air Weight: 191 lb 12.835 oz Body Mass Index (BMI) 29.1 Intake & Output: Intake and Output for Last 24 Hours 12/28/23 12/29/23 12/30/23 23:59 23:59 23:59 Intake Total 550 / 550 Balance 550 / 550 Lab / Micro Data 12/30/23 07:05 12/30/23 07:05 Labs: Laboratory Results - last 24 hr 12/29/23 19:00: WBC 11.4 H, RBC 4.17 L, Hgb 13.6, Hct 39.8, MCV 95.4, MCH 32.6 H, MCHC 34.2, RDW Std Deviation 43.5, RDW Coeff of Jason 12.4, Plt Count 119 L, MPV9.9, Immature Gran % (Auto) 0.600, Neut % (Auto) 80.5 H, Lymph % (Auto) 11.8 L, Bureau % (Auto) 6.7, Eos % (Auto) 0.1, Baso % (Auto) 0.3, Absolute Neuts (auto) 9.2 H, Absolute Lymphs (auto) 1.35, Nucleated RBC % 0, PT 33.5 H, INR 3.3, Sodium 132 L, Potassium 4.5, Chloride 100, Carbon Dioxide 26.0, Anion Gap 6, BUN15, Creatinine 1.03 H, Est GFR (MDRD) Af Amer 67, Est GFR (MDRD) Non-Af 55 L, BUN/Creatinine Ratio 14.6, Glucose 164 H, Calcium 9.2, Total Bilirubin 1.80 H, AST 32, ALT 15, Alkaline Phosphatase 91, Total Protein 8.3 H, Albumin 3.5, Globulin 4.8 H, Albumin/Globulin Ratio 0.7 L, Lipase < 10 L 12/29/23 20:16: Urine Color Yellow, Urine Clarity Sl. Cloudy, Urine pH 6.5, Ur Specific Hollister 1.010, Urine Protein 30 H, Urine Glucose (UA) Normal, Urine Ketones Negative, Urine Occult Blood 50 H, Urine Nitrite Positive H, Urine Bilirubin Negative, Urine Urobilinogen Normal, Ur Leukocyte Esterase 500 H, Urine RBC 5-10 SEEN, Urine WBC 25-50 SEEN, Ur Squamous Epith Cells 0 SEEN, UrineBacteria 4+, Urine Mucus 0 SEEN 12/30/23 06:40: POC Glucose 123 H 12/30/23 07:05: WBC 7.7, RBC 3.69 L, Hgb 11.7 L, Hct 34.9 L, MCV 94.6, MCH 31.7,MCHC 33.5, RDW Std Deviation 42.3, RDW Coeff of Jason 12.3, Plt Count 114 L, MPV 10.0, Immature Gran % (Auto) 0.600, Neut % (Auto) 76.2 H, Lymph % (Auto) 13.8 L,Bureau % (Auto) 8.3, Eos % (Auto) 0.6, Baso % (Auto) 0.5, Absolute Neuts (auto) 5.9, Absolute Lymphs (auto) 1.07, Nucleated RBC % 0, PT 38.0 H, INR 3.9, Sodium 136, Potassium 3.4 L, Chloride 103, Carbon Dioxide 24.0, Anion Gap 9, BUN 17, Creatinine 0.92, Estim Creat Clear Calc 60.07, Est GFR (MDRD) Af Amer 76, Est GFR (MDRD) Non-Af 63, BUN/Creatinine Ratio 18.4, Glucose 125 H, Calcium 8.4 L, Total Bilirubin 1.00, AST 16, ALT 11 L, Alkaline Phosphatase 71, Total Protein 6.6, Albumin 2.8 L, Globulin 3.8, Albumin/Globulin Ratio 0.7 L Radiography Diagnostic Testing: Radiology Impression Brain CT 12/29/23 18:30 IMPRESSION: Chronic involutional changes of the brain. Electronically Signed: Pete Vazquez MD at 21:07 EST , Abdomen/Pelvis CT 12/29/23 19:50 IMPRESSION: Right hydroureteronephrosis with distal ureteral stricture versus mass. Cystoscopic correlation recommended. Nodular contour of the liver compatible with cirrhosis. Colonic diverticulosis. No obstruction. No solid organ injury. No acute fracture seen. Electronically Signed: Pete Vazquez MD at 21:26 EST , Chest X-Ray 12/29/23 20:00 IMPRESSION: Degenerative changes, as described above. No demonstrated acute cardiopulmonary process. Electronically Signed: Pete Vazquez MD at 21:27 EST , Physical Exam Narrative Seen and examined. Elderly lady. Complain of mild abdominal discomfort yesterday but not today. Had cystoscopy in the morning. No fever or chills. On warfarin Physical exam General: Alert, Oriented x3, Cooperative, BMI 29.2 kg/m? HEENT: Atraumatic, PERRLA, EOMI, Normocephalic Oral: No Gingival or Mucosal Lesions/ Ulcerations Neck: Supple, No JVD, Negative Carotid Bruits Chest wall/Lungs: Air entry diminished in bilateral lung bases. No crepitation/rhonchi Cardiovascular: A-fib, irregular rhythm, Normal S1, Normal S2, systolic murmur over right second ICS. Abdomen: Bowel Sounds Present, Soft, Non Tender, Non-Distended : No dysuria. No renal angle tenderness. No suprapubic tenderness. Extremities: Mild lower leg pitting edema, Capillary Refill Less than 3 Seconds Skin: No rashes, No breakdown Musculoskeletal: No Tenderness to Palpation of Joints or Extremities. 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 No acute focal neurological deficit. Psych/Mental Status: Normal Affect, Appropriate. Assessment & Plan Assessment/Plan (1) UTI (urinary tract infection): PLAN: Plan The patient is a 78 y/o F was admitted with recent fall on Thursday with discomfort over lower ribs and upper abdomen, hit back of head, buttock. Also patient denies burning pain/dysuria but her daughter states she gets foul-smelling urine and confusion which then turns into UTI. No fever. #1. Acute Encephalopathy secondary to Acute Complicated Urinary Tract Infectioncomplicated by right hydroureteronephrosis with distal ureteral stricture versusmass: [facility] UA positive nitrite LE and pyuria. On empiric IV antibiotics ceftriaxone. Urine culture pending. Patient had cystoscopy with right retrograde pyelogram and urine sent for cytology and stentplacement but biopsy not done because INR elevated 3.3. #2. Recent mechanical fall: CT the brain with no acute findings, CT abdomen pelvis as noted above, PT and OT. Fall precaution. #3. Diabetes mellitus type II with chronic neuropathy: Hold oral home regimen, ADA diet until n.p.o. status, accu checks w/ ISS, continue chronic home gabapentin regimen. #4. Hypertension: Clarifying but currently patient does not appear to be on antihypertensive although BP is above goal, will clarify and in the interim we will have as needed IV hydralazine. #5. Hyperlipidemia: We will continue patient on statin therapy. #6. Chronic Kidney Disease Stage III A: Admission BUN/Cr 15/1.03, GFR 55, baseline renal function primarily 0.9-1.0, stable, BMP shows BUNs/creatinine 17/0.92, better than yesterday 15/1.03. #7. PAF/flutter: Status post previous ablation, not on any rate or rhythm agentbut clarifying, holding Coumadin as noted given possible intervention needs. #8. History complete heart block: Status post pacemaker placement. #9. Obesity: Weight loss and lifestyle changes encouraged. #10. Chronic asthma with allergic rhinitis: We will temporally hold home inhalers in the interim placed on ATC budesonide therapy, PRN albuterol, HOB, ISparameters. #11. RAMESH: CPAP nightly. #12. DVT prophylaxis: Holding Coumadin, presentation INR 3.3. Will repeat INR in a.m. and pending preference per Dr. Samaniego may certainly consider administering FFP for more quick reversal prior to intervention. #13. CODE status: Patient HCPOA and LW are not in place but her daughter would be her decision-maker if necessary she notes. Discussed CODE status at length including difference between FULL code, DNR-CCA and DNR-CC status. Following discussions about the differences in these status, requested Full Code status. Advanced Care Planning Face to Face Time: 16 minutes. Microbiology Past 72 Hours 12/29/23 20:16 Urine, Clean Catch Urine Culture - Preliminary Presumptive E. coli Laboratory Results 12/29/23 19:00: WBC 11.4 H, RBC 4.17 L, Hgb 13.6, Hct 39.8, MCV 95.4, MCH 32.6 H, MCHC 34.2, RDW Std Deviation 43.5, RDW Coeff of Jason 12.4, Plt Count 119 L, MPV9.9, Immature Gran % (Auto) 0.600, Neut % (Auto) 80.5 H, Lymph % (Auto) 11.8 L, Bureau % (Auto) 6.7, Eos % (Auto) 0.1, Baso % (Auto) 0.3, Absolute Neuts (auto) 9.2 H, Absolute Lymphs (auto) 1.35, Nucleated RBC % 0, PT 33.5 H, INR 3.3, Sodium 132 L, Potassium 4.5, Chloride 100, Carbon Dioxide 26.0, Anion Gap 6, BUN15, Creatinine 1.03 H, Est GFR (MDRD) Af Amer 67, Est GFR (MDRD) Non-Af 55 L, BUN/Creatinine Ratio 14.6, Glucose 164 H, Calcium 9.2, Total Bilirubin 1.80 H, AST 32, ALT 15, Alkaline Phosphatase 91, Total Protein 8.3 H, Albumin 3.5, Globulin 4.8 H, Albumin/Globulin Ratio 0.7 L, Lipase < 10 L 12/29/23 20:16: Urine Color Yellow, Urine Clarity Sl. Cloudy, Urine pH 6.5, Ur Specific Hollister 1.010, Urine Protein 30 H, Urine Glucose (UA) Normal, Urine Ketones Negative, Urine Occult Blood 50 H, Urine Nitrite Positive H, Urine Bilirubin Negative, Urine Urobilinogen Normal, Ur Leukocyte Esterase 500 H, Urine RBC 5-10 SEEN, Urine WBC 25-50 SEEN, Ur Squamous Epith Cells 0 SEEN, UrineBacteria 4+, Urine Mucus 0 SEEN 12/30/23 06:40: POC Glucose 123 H 12/30/23 07:05: WBC 7.7, RBC 3.69 L, Hgb 11.7 L, Hct 34.9 L, MCV 94.6, MCH 31.7,MCHC 33.5, RDW Std Deviation 42.3, RDW Coeff of Jason 12.3, Plt Count 114 L, MPV 10.0, Immature Gran % (Auto) 0.600, Neut % (Auto) 76.2 H, Lymph % (Auto) 13.8 L,Bureau % (Auto) 8.3, Eos % (Auto) 0.6, Baso % (Auto) 0.5, Absolute Neuts (auto) 5.9, Absolute Lymphs (auto) 1.07, Nucleated RBC % 0, PT 38.0 H, INR 3.9, Sodium 136, Potassium 3.4 L, Chloride 103, Carbon Dioxide 24.0, Anion Gap 9, BUN 17, Creatinine 0.92, Estim Creat Clear Calc 60.07, Est GFR (MDRD) Af Amer 76, Est GFR (MDRD) Non-Af 63, BUN/Creatinine Ratio 18.4, Glucose 125 H, Calcium 8.4 L, Total Bilirubin 1.00, AST 16, ALT 11 L, Alkaline Phosphatase 71, Total Protein 6.6, Albumin 2.8 L, Globulin 3.8, Albumin/Globulin Ratio 0.7 L 12/30/23 09:36: Miscellaneous Cytology Pending 12/30/23 11:50: POC Glucose 130 H Clinical Impression(s) from Imaging Studies Brain CT 12/29/23 18:30 IMPRESSION: Chronic involutional changes of the brain. Abdomen/Pelvis CT 12/29/23 19:50 IMPRESSION: Right hydroureteronephrosis with distal ureteral stricture versus mass. Cystoscopic correlation recommended. Nodular contour of the liver compatible with cirrhosis. Colonic diverticulosis. No obstruction. No solid organ injury. No acute fracture seen. Chest X-Ray 12/29/23 20:00 IMPRESSION: Degenerative changes, as described above. No demonstrated acute cardiopulmonary process. Electronically Signed: Pete Vazquez MD at 21:27 EST , Charges/Coding Visit Charges Inpatient E&M: 82762 Subs Hosp L2 12/30/23 4674 <Electronically signed by Josesito Miller MD> Cosigner Signature (if applicable): CC: ~ Signed [facility] Work Phone: 1(988) 909-603303-06-2024 Consult note Author Devyn Samaniego [facility] December 30, 2023 7:38am Note Date/Time December 30, 2023 7:38 am [facility] Medical Records Department [address] [place] [address] Consultation - Urology 12/30/23 0736 MR#: [id number] Acct: [id number] Name: KEISHA RED Rep #:[id number] : 1945 78 From: Devyn Samaniego MD PCP: Dr. Joon Lopez MD Status:AD M IN [place] [facility] [id number] Assessment & Plan Assessment/Plan (1) Hydronephrosis, right: PLAN: Keep patient n.p.o. plan for surgery for today for cystoscopy right retrograde pyelogram right stent placement will send urine for cytology possible to do ureteroscopy and biopsy. (2) Ureteral mass: HPI Consult Data Date of Consult: 12/30/23 HPI Narrative Reason for Consultation: Right hydronephrosis HPI Narrative: KEISHA RED, is a 78 F who presents to the hospital with severe right hydronephrosis on review of the CAT scan she is getting hydroureter and hydronephrosis all the way down the bladder possible mass or defect within the bladder or the ureter causing obstruction will take her to surgery today for cystoscopy and right stent placement right retrograde pyelogram possible ureteroscopy and biopsy. 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 Contact dermatitis and other eczema COVID-19 DDD (degenerative disc disease) Diabetes mellitus Essential hypertension Fracture of left elbow History of complete heart block Hx of bladder infections Hyperlipidemia Hypersomnia USP (current) use of anticoagulants Obesity RAMESH (obstructive sleep apnea) Other secondary pulmonary hypertension Shoulder dislocation Home Medications warfarin 5 mg tablet 5 mg PO DAILY blood thinner 11/18/18 [History Last Taken 12/25/23] atorvastatin 10 mg tablet 10 mg PO QHS cholesterol 12/11/19 [History Last Taken 12/29/23] TENS unit electrodes #2 ea 09/16/20 [History Last Taken Unknown] oxycodone-acetaminophen 5 mg-325 mg tablet 1 tab PO Q8H PRN pain 12/07/20 [History Last Taken 06/15/22] cyclobenzaprine 10 mg tablet 5 - 10 mg PO BID PRN Spasms 06/17/22 [History Last Taken 12/29/23] magnesium oxide 400 mg PO DAILY supplement 06/17/22 [History Last Taken 12/29/23] metformin 500 mg tablet,extended release 24 hr 1,000 mg PO BID DM 06/17/22 [History Last Taken 12/29/23] gabapentin 300 mg capsule 300 mg PO BREAKFAST nerve pain 08/04/22 [History Last Taken 12/29/23] gabapentin 300 mg capsule 600 mg PO QHS Neuropathy 08/04/22 [History Last Taken 12/29/23] albuterol sulfate 90 mcg/actuation aerosol inhaler 2 puff inhalation Q4H PRN shortness of breath or wheezing #8.5 grams 11/26/23 [Rx Last Taken Unknown] budesonide-formoterol HFA 160 mcg-4.5 mcg/actuation aerosol inhaler (Symbicort) 2 puff inhalation BID asthma #10.2 grams 11/26/23 [Rx Last Taken 12/29/23] cyclobenzaprine 10 mg tablet 10 mg PO TID PRN Muscle Spasm #20 TABLETS 11/28/23 [Rx Last Taken Unknown] warfarin 2.5 mg tablet (Jantoven) 2.5 mg PO SUMOTUSA blood thinner 12/30/23 [History Last Taken 12/29/23] Allergy/AdvReac Type Severity Reaction Status Date / Time amoxicillin Allergy Severe Hives Verified 12/29/23 15:52 aspirin Allergy Severe Hives, SOB Verified 12/29/23 15:52 Sulfa (Sulfonamide Allergy Severe Hives Verified 12/29/23 15:52 Antibiotics) Family History Mother Diabetes Father CAD (coronary artery disease) Sister Lung cancer Son Kidney stone Surgical History History of appendectomy History of kidney surgery Presence of permanent cardiac pacemaker (04/01/19) Social History household members: none housing: house number of children: 3 current occupational status: retired Smoking Status: Never smoker alcohol intake: never substance use type: does not use what type of physical activity do you participate in: none do you feel safe at home: Yes Physical Exam Const alert and oriented x3 General Appearance: cooperative HEENT normocephalic, head/scalp atraumatic, EAC's normal and TM's normal bilaterally Eyes PERRL and EOMs intact bilaterally Pupil: sluggish Neck no lymphadenopathy, supple and no JVD General: trachea midline Lymph Lymphatic: no lymphadenopathy noted, lymphedema and lymphadenopathy Resp normal respiratory effort, normal air movement and clear to auscultation bilaterally Cardio regular rate, regular rhythm and peripheral pulses 2+ throughout GI soft to palpation, non-tender and non-distended Extremity normal capillary refill and no clubbing, cyanosis or edema General Extremity: no tenderness to palpation of joints or extremities Skin no rashes or lesions noted General Skin Exam: turgor normal Lesions: no lesions Rashes: no rashes Neuro CN's II-XII intact bilaterally Speech: speech normal Motor Exam: strength 5/5 throughout; Negative for general weakness Psych thought process normal, cooperative and affect normal Appearance: appropriate Medical Records Data Attestation: I reviewed the patient's medical records Lab / Micro Data 12/29/23 19:00 12/29/23 19:00 Labs: Laboratory Results - last 24 hr 12/29/23 19:00: WBC 11.4 H, RBC 4.17 L, Hgb 13.6, Hct 39.8, MCV 95.4, MCH 32.6 H, MCHC 34.2, RDW Std Deviation 43.5, RDW Coeff of Jason 12.4, Plt Count 119 L, MPV9.9, Immature Gran % (Auto) 0.600, Neut % (Auto) 80.5 H, Lymph % (Auto) 11.8 L, Bureau % (Auto) 6.7, Eos % (Auto) 0.1, Baso % (Auto) 0.3, Absolute Neuts (auto) 9.2 H, Absolute Lymphs (auto) 1.35, Nucleated RBC % 0, PT 33.5 H, INR 3.3, Sodium 132 L, Potassium 4.5, Chloride 100, Carbon Dioxide 26.0, Anion Gap 6, BUN15, Creatinine 1.03 H, Est GFR (MDRD) Af Amer 67, Est GFR (MDRD) Non-Af 55 L, BUN/Creatinine Ratio 14.6, Glucose 164 H, Calcium 9.2, Total Bilirubin 1.80 H, AST 32, ALT 15, Alkaline Phosphatase 91, Total Protein 8.3 H, Albumin 3.5, Globulin 4.8 H, Albumin/Globulin Ratio 0.7 L, Lipase < 10 L 12/29/23 20:16: Urine Color Yellow, Urine Clarity Sl. Cloudy, Urine pH 6.5, Ur Specific Hollister 1.010, Urine Protein 30 H, Urine Glucose (UA) Normal, Urine Ketones Negative, Urine Occult Blood 50 H, Urine Nitrite Positive H, Urine Bilirubin Negative, Urine Urobilinogen Normal, Ur Leukocyte Esterase 500 H, Urine RBC 5-10 SEEN, Urine WBC 25-50 SEEN, Ur Squamous Epith Cells 0 SEEN, UrineBacteria 4+, Urine Mucus 0 SEEN 12/30/23 06:40: POC Glucose 123 H Imaging Radiology Impression Brain CT 12/29/23 18:30 IMPRESSION: Chronic involutional changes of the brain. Electronically Signed: Pete Vazquez MD at 21:07 EST , Abdomen/Pelvis CT 12/29/23 19:50 IMPRESSION: Right hydroureteronephrosis with distal ureteral stricture versus mass. Cystoscopic correlation recommended. Nodular contour of the liver compatible with cirrhosis. Colonic diverticulosis. No obstruction. No solid organ injury. No acute fracture seen. Electronically Signed: Pete Vazquez MD at 21:26 EST , Chest X-Ray 12/29/23 20:00 IMPRESSION: Degenerative changes, as described above. No demonstrated acute cardiopulmonary process. Electronically Signed: Pete Vazquez MD at 21:27 EST , 12/30/23 0738 <Electronically signed by Devyn Samaniego MD> Cosigner Signature (if applicable): CC: Dr. Kassi Fisher MD; Dr. Devyn Samaniego MD; Dr. Joon Lopez MD~ Signed [facility] Work Phone: [phone]) 150-256403-06-[address] [facility] 12-30-2023 History and physical note Author [facility] December 30, 2023 1:19am Note Date/Time December 29, 2023 10:4 4pm [facility] Medical Records Department [address] [place] [id number] H&P Exam - Hospitalist 12/29/232243 MR#: [id number] Acct: [id number] Name: KEISHA RED Rep #:[id number] : 1945 78 From: Kassi Fisher MD PCP: Dr. Joon Lopez MD Status:AD M IN [id number] HPI - General General Date of Admission: 12/29/23 Date of Service: 12/29/23 Chief Complaint: Fall, foul smelling urine, weakness, back/rib pain after fall. HPI Narrative The patient is a 78 y/o F w/ PMHx: PAF/Flutter s/p ablation, Obesity, Asthma, Allergic Rhinitis, HTN, HLD, Hx complete HB s/p pacemaker, RAMESH, CKD stage III unclear subtype, Diabetes mellitus type II who presents to the [facility] ED on 12/29/23 with history of recent fall on Thursday prior to current presentation with ongoingabdominal and rib discomfort noted to be same level apparently unfortunately knocked over by a dog and since then had ongoing discomfort in lower lower ribs and upper abdomen unfortunately noting that when she did fall she hit the back of her head as well as buttock and bilateral lower rib cage and upon her daughter checking in on her she did disclose these events eventually and her daughter noted foul-smelling urine with no recent fever or chills nor any nausea, emesis or diarrhea but given presentation prompted ED evaluation. Workupin the ED included T98.7, heart 74, BP 164/88, respiratory rate 18, 97% on room air, CBC with a BC 11.4, hemoglobin 13.6, platelet 119 with left shift, INR 3.3,CMP with sodium 132, BUN/creatinine 15/1.03, glucose 164, T. bili 1.80 otherwisehepatic profile not marked appearing, lipase less than 10, urinalysis noted to be cloudy, specific gravity 1.010, protein 30, occult blood 50, positive nitrite, leukocyte Estrace 500, urine RBC 5-10, urine WBCs 25-50 with 4+ urine bacteria, urine culture pending per ED, CT brain with chronic involutional changes, chest x-ray with degenerative changes with no acute cardiopulmonary findings, CT abdomen and pelvis with right hydroureteronephrosis with distal ureteral stricture versus mass, nodular contour of the liver compatible with cirrhosis, colonic diverticulosis with no obstruction. In the ED patient ministered IV Rocephin. [facility] Medical History (Updated 12/30/23 @ 01:[address] 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 Obesity RAMESH (obstructive sleep apnea) Other secondary pulmonary hypertension Shoulder dislocation Home Medications warfarin 5 mg tablet 5 mg PO DAILY blood thinner 11/18/18 [History Last Taken 12/25/23] atorvastatin 10 mg tablet 10 mg PO QHS cholesterol 12/11/19 [History Last Taken 12/29/23] TENS unit electrodes #2 ea 07/11/20 [History Last Taken Unknown] oxycodone-acetaminophen 5 mg-325 mg tablet 1 tab PO Q8H PRN pain 12/07/20 [History Last Taken 06/15/22] cyclobenzaprine 10 mg tablet 5 - 10 mg PO BID PRN Spasms 06/17/22 [History Last Taken 12/29/23] magnesium oxide 400 mg PO DAILY supplement 06/17/22 [History Last Taken 12/29/23] metformin 500 mg tablet,extended release 24 hr 1,000 mg PO BID DM 06/17/22 [History Last Taken 12/29/23] gabapentin 300 mg capsule 300 mg PO BREAKFAST nerve pain 08/04/22 [History Last Taken 12/29/23] gabapentin 300 mg capsule 600 mg PO QHS Neuropathy 08/04/22 [History Last Taken 12/29/23] albuterol sulfate 90 mcg/actuation aerosol inhaler 2 puff inhalation Q4H PRN shortness of breath or wheezing #8.5 grams 11/26/23 [Rx Last Taken Unknown] budesonide-formoterol HFA 160 mcg-4.5 mcg/actuation aerosol inhaler (Symbicort) 2 puff inhalation BID asthma #10.2 grams 11/26/23 [Rx Last Taken 12/29/23] cyclobenzaprine 10 mg tablet 10 mg PO TID PRN Muscle Spasm #20 TABLETS 11/28/23 [Rx Last Taken Unknown] warfarin 2.5 mg tablet (Jantoven) 2.5 mg PO SUMOTUSA blood thinner 12/30/23 [History Last Taken 12/29/23] Allergy/AdvReac Type Severity Reaction Status Date / Time amoxicillin Allergy Severe Hives Verified 12/29/23 15:52 aspirin Allergy Severe Hives, SOB Verified 12/29/23 15:52 Sulfa (Sulfonamide Allergy Severe Hives Verified 12/29/23 15:52 Antibiotics) Family History Mother Diabetes Father CAD (coronary artery disease) Sister Lung cancer Son Kidney stone Surgical History History of appendectomy History of kidney surgery Presence of permanent cardiac pacemaker (04/01/19) Social History household members: none housing: house number of children: 3 current occupational status: retired Smoking Status: Never smoker alcohol intake: never substance use type: does not use what type of physical activity do you participate in: none do you feel safe at home: Yes ROS Review of Systems ROS Unobtainable: due to encephalopathy Vital Signs Vital Signs Vital Signs: 12/29/23 15:52 12/29/23 17:50 12/29/23 17:53 Temperature 98.7 F Temperature Source Temporal Pulse Rate 74 63 Respiratory Rate 18 14 Respiratory Effort Normal Non-Labored Respiratory Pattern Normal Blood Pressure 164/88 H 145/104 H Blood Pressure Mean 113 117 Pulse Ox 97 96 Oxygen Delivery Method Room Air Room Air Room Air Oxygen Flow Rate (L/min) 96 12/29/23 20:08 12/29/23 22:25 12/29/23 22:28 Temperature Temperature Source Pulse Rate 87 Respiratory Rate 16 20 H Respiratory Effort Respiratory Pattern Blood Pressure 177/144 H 173/88 H Blood Pressure Mean 155 116 Pulse Ox 93 Oxygen Delivery Method Room Air Oxygen Flow Rate (L/min) 12/29/23 22:31 Temperature Temperature Source Pulse Rate Respiratory Rate Respiratory Effort Respiratory Pattern Blood Pressure 166/77 H Blood Pressure Mean 106 Pulse Ox Oxygen Delivery Method Oxygen Flow Rate (L/min) Physical Exam Narrative Physical Examination: General: Awake, alert, oriented to self and some recent events but has difficulty even stating who the person in the room is but eventually after a length of time able to state that it is her daughter but does appear confused, remains cooperative but occasionally irritable, seated upright in the ED bed, fatigued. Skin: Normal color, normal turgor, no icterus, no cyanosis except occasional very staged ecchymoses to extremities and thorax with recent falls. HEENT: AT/NC, EOMI, PERRLA, mildly dry MM, no carotid bruits or JVD noted. Lungs: Mildly diminished, greater bases, poor effort, no rales, ronchi or wheezing. Heart: Regular rate and rhythm; no gallop, rub audible. Abdomen: Soft, obese, mild generalized discomfort but no rebound or guarding, nomarked distention, no obvious evidence of HSM. Extremities: No cyanosis, no clubbing, bilateral ankle to distal gibson chronic nonpitting edema. Neurological: Patient awake, alert, oriented as noted, cognitive function not currently baseline intact but improving; pupils equally reactive to light and accommodation, cranial nerves grossly normal, moving all 4 extremities, no focaldeficits, strength severely globally decreased secondary to acute presentation. Psychiatric: Affect appears fatigued, no acute evidence of depressive or anxietyfeelings. Results Lab / Micro Data 12/29/23 19:00 12/29/23 19:00 Labs: Laboratory Results - last 24 hr 12/29/23 19:00: WBC 11.4 H, RBC 4.17 L, Hgb 13.6, Hct 39.8, MCV 95.4, MCH 32.6 H, MCHC 34.2, RDW Std Deviation 43.5, RDW Coeff of Jason 12.4, Plt Count 119 L, MPV9.9, Immature Gran % (Auto) 0.600, Neut % (Auto) 80.5 H, Lymph % (Auto) 11.8 L, Bureau % (Auto) 6.7, Eos % (Auto) 0.1, Baso % (Auto) 0.3, Absolute Neuts (auto) 9.2 H, Absolute Lymphs (auto) 1.35, Nucleated RBC % 0, PT 33.5 H, INR 3.3, Sodium 132 L, Potassium 4.5, Chloride 100, Carbon Dioxide 26.0, Anion Gap 6, BUN15, Creatinine 1.03 H, Est GFR (MDRD) Af Amer 67, Est GFR (MDRD) Non-Af 55 L, BUN/Creatinine Ratio 14.6, Glucose 164 H, Calcium 9.2, Total Bilirubin 1.80 H, AST 32, ALT 15, Alkaline Phosphatase 91, Total Protein 8.3 H, Albumin 3.5, Globulin 4.8 H, Albumin/Globulin Ratio 0.7 L, Lipase < 10 L 12/29/23 20:16: Urine Color Yellow, Urine Clarity Sl. Cloudy, Urine pH 6.5, Ur Specific Hollister 1.010, Urine Protein 30 H, Urine Glucose (UA) Normal, Urine Ketones Negative, Urine Occult Blood 50 H, Urine Nitrite Positive H, Urine Bilirubin Negative, Urine Urobilinogen Normal, Ur Leukocyte Esterase 500 H, Urine RBC 5-10 SEEN, Urine WBC 25-50 SEEN, Ur Squamous Epith Cells 0 SEEN, UrineBacteria 4+, Urine Mucus 0 SEEN Imaging Radiology Impression Brain CT 12/29/23 18:30 IMPRESSION: Chronic involutional changes of the brain. Electronically Signed: Pete Vazquez MD at 21:07 EST , Abdomen/Pelvis CT 12/29/23 19:50 IMPRESSION: Right hydroureteronephrosis with distal ureteral stricture versus mass. Cystoscopic correlation recommended. Nodular contour of the liver compatible with cirrhosis. Colonic diverticulosis. No obstruction. No solid organ injury. No acute fracture seen. Electronically Signed: Pete Vazquez MD at 21:26 EST , Chest X-Ray 12/29/23 20:00 IMPRESSION: Degenerative changes, as described above. No demonstrated acute cardiopulmonary process. Electronically Signed: Pete Vazquez MD at 21:27 EST , Assessment & Plan Assessment/Plan (1) UTI (urinary tract infection): PLAN: Plan The patient is a 78 y/o F w/ PMHx: PAF/Flutter s/p ablation, Obesity, Asthma, Allergic Rhinitis, HTN, HLD, Hx complete HB s/p pacemaker, RAMESH, CKD stage III unclear subtype, Diabetes mellitus type II who presents to the [facility] ED on 12/29/23 with history of recent fall on Thursday prior to current presentation with ongoingabdominal and rib discomfort noted to be same level apparently unfortunately knocked over by a dog and since then had ongoing discomfort in lower lower ribs and upper abdomen unfortunately noting that when she did fall she hit the back of her head as well as buttock and bilateral lower rib cage and upon her daughter checking in on her she did disclose these events eventually and her daughter noted foul-smelling urine with no recent fever or chills nor any nausea,emesis or diarrhea but given presentation prompted ED evaluation. #1. Acute Encephalopathy secondary to Acute Complicated Urinary Tract Infectioncomplicated by right hydroureteronephrosis with distal ureteral stricture versusmass: Will admit to [facility] upon ED evaluation remarkable, pending UCx, continue IVFs, monitor I/Os, continue IV Rocephin w/ transition as able pending sensitivities and speciation, urology consultation pending, n.p.o. after midnight with judicious hydration. PT/OT/case management consultation for discharge planning. #2. Recent mechanical fall: CT the brain with no acute findings, CT abdomen pelvis as noted above, fall potentially related with acute complicated UTI, willmaintain on fall and aspiration precautions, PT/OT/case management consulted fordischarge planning. #3. Diabetes mellitus type II with chronic neuropathy: Hold oral home regimen, ADA diet until n.p.o. status, accu checks w/ ISS, continue chronic home gabapentin regimen. #4. Hypertension: Clarifying but currently patient does not appear to be on antihypertensive although BP is above goal, will clarify and in the interim we will have as needed IV hydralazine. #5. Hyperlipidemia: We will continue patient on statin therapy. #6. Chronic Kidney Disease Stage III, unclear subtype: Admission BUN/Cr 15/1.03, GFR 55, baseline renal function primarily 0.9-1.0, stable, repeat BMP in AM. #7. PAF/flutter: Status post previous ablation, not on any rate or rhythm agentbut clarifying, holding Coumadin as noted given possible intervention needs. #8. History complete heart block: Status post pacemaker placement. #9. Obesity: Weight loss and lifestyle changes encouraged. #10. Chronic asthma with allergic rhinitis: We will temporally hold home inhalers in the interim placed on ATC budesonide therapy, PRN albuterol, HOB, ISparameters. #11. RAMESH: CPAP nightly. #12. DVT prophylaxis: Holding Coumadin, presentation INR 3.3. Will repeat INR in a.m. and pending preference per Dr. Samaniego may certainly consider administering FFP for more quick reversal prior to intervention. #13. CODE status: Patient HCPOA and LW are not in place but her daughter would be her decision-maker if necessary she notes. Discussed CODE status at length including difference between FULL code, DNR-CCA and DNR-CC status. Following discussions about the differences in these status, requested Full Code status. Advanced Care Planning Face to Face Time: 16 minutes. Charges/Coding Visit Charges Inpatient E&M: 30240 Init Hosp L3 Procedures Hospitalists Procedures: 91686 Advncd Care Plan 30 Min 12/30/23 0119 <Electronically signed by Kassi Fisher MD> Cosigner Signature (if applicable): CC: Dr. Kassi Fisher MD; Dr. Joon Lopez MD~ Signed [facility] Work Phone: [phone]) 503-947803-06-2024 Discharge summary Author Abdifatah Lemon [facility] December 29, 2023 11:30pm Note Date/Time December 29, 2023 6:39 pm [facility] Medical Records Department [address] [place] [address] Emergency Department Summary 12/29/23 MR#: [id number] Acct: [id number] Name: KEISHA RED Rep #:[id number] : 1945 78 From: Abdifatah Lemon MD PCP: Dr. Joon Lopez MD Status:AD M IN [id number] HPI HPI - Fall History of Present Illness Chief Complaint: Back Detail of Chief Complaint: Abdominal and rib pain post fall on Thursday. Informant: family Occured/Mechanism Occurred: Days Mechanism/Context: Yes same level fall and Yes other see narrative below Narrative: Dog jumped up on patient knocked over she fell at home on Thursday. Since that time she has had pain in her lower ribs and upper abdomen. Pain/Injury Pain Location: head and chest Quality of Pain: Sharp Current Severity: Mild Maximum Severity: Mild Associated Symptoms Associated Symptoms: Negative for Parasthesias, Weakness, Loss of function, Inability to ambulate, Loss of consciousness or Amnesia Narrative Narrative: 78-year-old female on Coumadin for A-fib, diabetes, hypertension with chronic back pain and TENS unit. She also has a pacemaker. On Thursday her dog jumped upon her she lost her balance and fell hitting the back of her head, her buttocks and injuring her bilateral lower rib cage. She did not tell anybody initially. She is now complaining of lower rib cage pain acute on chronic back pain and upper abdominal pain. Daughter is also concerned because such as foul-smelling urine. No diarrhea. No fever. No nausea, vomiting or constipation. 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 Obesity RAMESH (obstructive sleep apnea) Other secondary pulmonary hypertension Palpitations Pneumonia Shoulder dislocation Home Medications warfarin 5 mg tablet 5 mg PO DAILY blood thinner 11/18/18 [History Last Taken 06/15/22] atorvastatin 10 mg tablet 10 mg PO QHS cholesterol 12/11/19 [History Last Taken 06/15/22] TENS unit electrodes #2 ea 07/11/20 [History Last Taken Unknown] oxycodone-acetaminophen 5 mg-325 mg tablet 1 tab PO Q8H PRN pain 12/07/20 [History Last Taken 06/15/22] cyclobenzaprine 10 mg tablet 5 - 10 mg PO BID PRN Spasms 06/17/22 [History Last Taken 06/16/22] magnesium oxide 400 mg PO DAILY supplement 06/17/22 [History Last Taken 06/16/22] metformin 500 mg tablet,extended release 24 hr 1,000 mg PO BID DM 06/17/22 [History Last Taken 06/16/22] gabapentin 300 mg capsule 300 mg PO BREAKFAST nerve pain 08/04/22 [History Last Taken Unknown] gabapentin 300 mg capsule 600 mg PO QHS Neuropathy 08/04/22 [History Last Taken Unknown] albuterol sulfate 90 mcg/actuation aerosol inhaler 2 puff inhalation Q4H PRN shortness of breath or wheezing #8.5 grams 11/26/23 [Rx Last Taken Unknown] budesonide-formoterol HFA 160 mcg-4.5 mcg/actuation aerosol inhaler (Symbicort) 2 puff inhalation BID asthma #10.2 grams 11/26/23 [Rx Last Taken Unknown] cyclobenzaprine 10 mg tablet 10 mg PO TID PRN Muscle Spasm #20 TABLETS 11/28/23 [Rx Last Taken Unknown] Allergy/AdvReac Type Severity Reaction Status Date / Time amoxicillin Allergy Severe Hives Verified 12/29/23 15:52 aspirin Allergy Severe Hives, SOB Verified 12/29/23 15:52 Sulfa (Sulfonamide Allergy Severe Hives Verified 12/29/23 15:52 Antibiotics) Family History Mother Diabetes Father CAD (coronary artery disease) Sister Lung cancer Son Kidney stone Surgical History History of appendectomy History of kidney surgery Presence of permanent cardiac pacemaker (04/01/19) Social History household members: none housing: house number of children: 3 current occupational status: retired Smoking Status: Never smoker alcohol intake: never substance use type: does not use what type of physical activity do you participate in: none do you feel safe at home: Yes ROS ROS ED ROS Narrative Abdominal pain. Rib pain post fall. Review of Systems ROS Unobtainable: Denies due to encephalopathy Constitutional Constitutional ED: Denies chills or fever(s) Eyes Eyes: Denies blurry vision ENT ENT ED: Denies ear pain Cardiovascular Cardiovascular: Denies chest pain Respiratory/Chest Respiratory/Chest: Denies cough or dyspnea Gastrointestinal Gastrointestinal: Reports abdominal pain; Denies constipation, diarrhea, melena,nausea or vomiting Genitourinary Genitourinary ED: Reports urinary frequency and other Details: Strong smelling urine. ; Denies dysuria or hematuria Musculoskeletal Musculoskeletal: Reports back pain; Denies arthralgias, myalgias or neck pain Integumentary Denies abscess or Abrasions Psychiatric Psychiatric: Denies anxiety or depression Endocrine Endocrinology: Denies polydipsia or polyphagia Hematologic/Lymphatic Hematologic/Lymphatic: Denies easy bleeding, easy bruising or lymphadenopathy Allergic/Immunologic Allergic/Immunologic ED: Denies mouth swelling, tongue swelling or urticaria EXAM Physical Exam Narrative Exam Narrative: 78-year-old female sitting upright in bed. Vital signs are stable afebrile. Daughter at bedside. H EENT exam pupils round react light. No signs of facial trauma. She does have tenderness to her posterior scalp but no significant hematoma. No laceration or blood. C-spine and neck nontender. Back she has a TENS unit on. She has a chronic back pain. There is no bruising. Lungs clear to auscultation. Heart regular rhythm no murmur. Chest wall bilateral lower rib cage tenderness no crepitance, subcu air or bruising. Abdomen is really notsignificantly tender. There is no peritoneal signs. There is no localizing right upper or right lower quadrant tenderness. There is no bruising. Pelvic girdle is intact. She is moving all 4 extremities. 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 Dorsi plantarflexion. Neurologically she is awake alert. Answering questions following commands. Const Vital Signs: 12/29/23 15:52 12/29/23 17:50 12/29/23 17:53 Temperature 98.7 F Temperature Source Temporal Pulse Rate 74 63 Respiratory Rate 18 14 Respiratory Effort Normal Non-Labored Respiratory Pattern Normal Blood Pressure 164/88 H 145/104 H Blood Pressure Mean 113 117 Pulse Ox 97 96 Oxygen Delivery Method Room Air Room Air Room Air Oxygen Flow Rate (L/min) 96 12/29/23 20:08 Temperature Temperature Source Pulse Rate Respiratory Rate 16 Respiratory Effort Respiratory Pattern Blood Pressure Blood Pressure Mean Pulse Ox Oxygen Delivery Method Oxygen Flow Rate (L/min) Positive well nourished and well developed; Negative for cachectic, contracturesor unkempt General Appearance ED: well developed and NAD; Negative for unkempt, cachectic or contractures Nutritional Appearance: Negative for cachectic HEENT Reports normocephalic HEENT Narrative: Posterior scalp tenderness. No significant hematoma. No laceration or blood. contusion and tenderness; Negative for atraumatic or hematoma Eyes PERRL and EOMs intact bilaterally General Eye ED: Negative for pale conjunctiva or scleral icterus Neck full ROM, no lymphadenopathy and supple General: Negative for tenderness or other Chest Wall Negative for inspection of chest normal or palpation of chest normal Chest Narrative: Bilateral lower anterior rib cage tenderness. No crepitance or subcu air. Chest: Negative for other Resp normal respiratory effort, no retractions and clear to auscultation bilaterally Effort and Inspection: Negative for pain with movement Auscultation: Negative for rales, rhonchi or wheezes Cardio regular rate, regular rhythm, S1 normal heart sound, S2 normal heart sound and no murmurs Rate: Negative for bradycardia or tachycardic Rhythm: Negative for abnormal rhythm Bruits: Negative for other GI non-tender, non-distended and no masses Inspection: Negative for abdominal distention Auscultation: normoactive bowel sounds Palpation: soft; Negative for guarding or rebound tenderness present Back/Spine no CVA tenderness General Back: Negative for CVA tenderness Cervical Spine: Negative for cervical spine tenderness Neuro oriented x3, CN's II-XII intact bilaterally, moves all extremities and no focal motor deficits Sensorium / Orientation: alert, oriented to person, oriented to place and oriented to time; Negative for orientation impaired, confused, lethargic or stuporous Motor Exam: strength 5/5 throughout Psych mental status grossly normal Appearance: Negative for unkempt Attitude: No agitated Mood & Affect: Negative for depressed, anxious or tearful Skin General Skin Exam: Negative for other Lesions: no lesions Rashes: no rashes Trauma: Negative for abrasion or laceration MDM MDM MDM Narrative Medical decision making narrative: 78-year-old fell hit the back of her head on Thursday after her dog jumped up on her. She is on Coumadin. She also complained of bilateral rib cage pain and may be some upper abdominal pain is really not reproducible on exam. She undergo a CAT scan of her head due to the trauma. Chest x-ray. CAT scan of herabdomen that also get a lower rib cage. Screening labs and an INR. She does not want a thing for pain currently. Repeat exam patient is doing well at 10:15 PM. No significant change on exam. I discussed all laboratory work with her and her daughter. Patient has UTI withhydronephrosis and hydroureter of the right kidney due to some type of distal urinary obstruction. Urine culture was sent. Patient was started on IV Rocephin. Both the patient and her daughter are comfortable with the plan and the admission. Of the hospitalist on page. History & Record Review Discussion w/independent historian: Patient and Family Additional record(s) reviewed:: Prior inpatient record, Prior outpatient record,Prior ED visit and Prior labs Lab Data Attestation: I reviewed the patient's lab results. Lab results narrative: CBC shows white 11.4. H&H 13.6 and 39. Platelets 119. She is on Coumadin her INR is 3.3. Electrolytes show sodium 132 gap 6. BUN of 15 creatinine 1. Glucose 164. Liver enzymes are unremarkable. Lipase is less than 10. Urinalysis shows positive nitrites. 5-10 red cells. 25-50 white cells. 4+ bacteria. Labs: Laboratory Results - last 24 hr 12/29/23 12/29/23 19:00 20:16 WBC 11.4 H RBC 4.17 L Hgb 13.6 Hct 39.8 MCV 95.4 MCH 32.6 H MCHC 34.2 RDW Std Deviation 43.5 RDW Coeff of Jason 12.4 Plt Count 119 L MPV 9.9 Immature Gran % (Auto) 0.600 Neut % (Auto) 80.5 H Lymph % (Auto) 11.8 L Bureau % (Auto) 6.7 Eos % (Auto) 0.1 Baso % (Auto) 0.3 Absolute Neuts (auto) 9.2 H Absolute Lymphs (auto) 1.35 Nucleated RBC % 0 PT 33.5 H INR 3.3 Sodium 132 L Potassium 4.5 Chloride 100 Carbon Dioxide 26.0 Anion Gap 6 BUN 15 Creatinine 1.03 H Est GFR (MDRD) Af Amer 67 Est GFR (MDRD) Non-Af 55 L BUN/Creatinine Ratio 14.6 Glucose 164 H Calcium 9.2 Total Bilirubin 1.80 H AST 32 ALT 15 Alkaline Phosphatase 91 Total Protein 8.3 H Albumin 3.5 Globulin 4.8 H Albumin/Globulin Ratio 0.7 L Lipase < 10 L Urine Color Yellow Urine Clarity Sl. Cloudy Urine pH 6.5 Ur Specific Hollister 1.010 Urine Protein 30 H Urine Glucose (UA) Normal Urine Ketones Negative Urine Occult Blood 50 H Urine Nitrite Positive H Urine Bilirubin Negative Urine Urobilinogen Normal Ur Leukocyte Esterase 500 H Urine RBC 5-10 SEEN Urine WBC 25-50 SEEN Ur Squamous Epith Cells 0 SEEN Urine Bacteria 4+ Urine Mucus 0 SEEN Radiography Diagnostic Testing: Clinical Impression(s) from Imaging Studies Brain CT 12/29/23 18:30 IMPRESSION: Chronic involutional changes of the brain. Electronically Signed: Pete Vazquez MD at 21:07 EST , Abdomen/Pelvis CT 12/29/23 19:50 IMPRESSION: Right hydroureteronephrosis with distal ureteral stricture versus mass. Cystoscopic correlation recommended. Nodular contour of the liver compatible with cirrhosis. Colonic diverticulosis. No obstruction. No solid organ injury. No acute fracture seen. Electronically Signed: Pete Vazquez MD at 21:26 EST , Chest X-Ray 12/29/23 20:00 IMPRESSION: Degenerative changes, as described above. No demonstrated acute cardiopulmonary process. Electronically Signed: ePte Vazquez MD at 21:27 EST , Discharge Plan Triage Chief Complaint: Back Other Complaint: Fall ED Provider: Abdifatah Lemon Dx/Rx/DC Orders Prescriptions: No Action oxycodone-acetaminophen 5-325 mg tablet 1 tab PO Q8H PRN (Reason: pain) (DME) TENS unit electrodes Pad See Rx Instructions .ROUTE .MEDSUPPLY Qty: 2 Rx Instructions: As directed Symbicort 160-4.5 mcg/actuation HFA aerosol inhaler 2 puff INHALATION BID Qty: 10.2 11RF albuterol sulfate 90 mcg/actuation HFA aerosol inhaler 2 puff INHALATION Q4H PRN (Reason: shortness of breath or wheezing) Qty: 8.5 6RF Rx Instructions: administer with spacer warfarin 5 MG tablet 5 mg PO DAILY Protocol: Dose Management Condition: Thursday Dose/Route: 2.5 mg Instruction: 0.5 x 5 mg tablets Condition: Thursday Dose/Route: 5 mg Instruction: 1 x 5 mg tablet Condition: Thursday Dose/Route: 5 mg Instruction: 1 x 5 mg tablet Condition: Thursday Dose/Route: 5 mg Instruction: 1 x 5 mg tablet Condition: Dose/Route: 5 mg Instruction: 1 x 5 mg tablet Condition: Thursday Dose/Route: 2.5 mg Instruction: 0.5 x 5 mg tablets Condition: Thursday Dose/Route: 2.5 mg Instruction: 0.5 x 5 mg tablets Protocol Text: Adjustment Start Date: Thursday07/10/23 INR Value: 2.3 INR Date: 07/10/23 Recheck Date: 07/31/23 Rx Instructions: 5 mg. , , THU atorvastatin 10 MG tablet 10 mg PO QHS gabapentin 300 mg capsule 600 mg PO QHS cyclobenzaprine 10 mg Tablet 5 - 10 mg PO BID PRN (Reason: Spasms) metformin 500 mg tablet extended release 24 hr 1,000 mg PO BID Patient Comments: Take 2 tablets by mouth twice daily with meals. magnesium oxide 400 mg magnesium Tablet 400 mg PO DAILY gabapentin 300 mg capsule 300 mg PO BREAKFAST Patient Comments: Take 2 capsules by mouth daily at bedtime AND 1 capsule every morning. Rx Instructions: 300 mg orally; cyclobenzaprine 10 mg tablet 10 mg PO TID PRN (Reason: Muscle Spasm) Qty: 20 0RF Primary Care Provider: Joon Lopez Referrals: Joon Lopez MD [Primary Care Provider] - What to do if you have Problems For any increased pain, shortness of breath, bleeding, nausea or vomiting, chestpain, or any unexpected problems, contact your Primary Care Provider. Call [facility] ([phone]) or report to the closest Emergency Room. Call 911 if necessary. 12/29/23 2330 <Electronically signed by Abdifatah Lemon MD> Cosigner Signature (if applicable): CC: Dr. Joon Lopez MD ~ Signed [facility] Work Phone: [phone] 547-963402-20-2024 Miscellaneous Notes* Telephone Encounter - Yuko Ordonez RN - 12/15/2023 8:24 AM EST Consults, office notes, and demographic faxed over to [facility] as requested. Patientnotified that paperwork faxed. Patient voices understanding. Yuko Ordonez RN * Telephone Encounter - Trini Tang APRN.CNS - 12/14/2023 4:46 PM EST Consult placed, see below * Telephone Encounter - Yuko Ordonez RN - 12/14/2023 1:02 PM EST Patient's daughter Brooke calls and states that patient continues to have a lot of back pain. Daughter is asking if provider can write a referral to spine doctor and fax referral to [facility] [phone]. Please review and advise, Yuko Ordonez RN [facility] [place] [facility]02-02-[address] [facility]12-06-2023 Miscellaneous Notes* Telephone Encounter - Liza Santana LPN - 09/30/2023 10:34 AM EST Below left on identified vm. Liza Santana LPN * Telephone Encounter - Whitney Hammond APRN.CNP - 09/30/2023 9:17 AM EST Looks like she has had Robaxin in the past, insurance preference is for Zanaflex, script sent to the pharmacy. * Telephone Encounter - Tamy Donis LPN - 09/29/2023 2:29 PM EST Patient calling asking for something for muscle [...] asking for something to help. Patient uses [facility] for her pharmacy. Please advise documented in this encounter[facility] [place]23 History of Present illness Narrative* Whitney Hammond APRN.DOMINGO - 09/23/2023 9:20 AM EST SUBJECTIVE Keisha Red is a 78 year [...] Back pain has been worse, controllable with herPRN percocet. Also using a TENS unit. Due for labs. Labs ordered from a prior visit. Due for the eye doctor. Follows with [facility]. On coumadin for history of a. Fib. No recent bleeding issues. Follows with [facility]. No chest pains or chest tightness. Her medications were reviewed today and her list is now up to date. Medications Current Outpatient Medications Medication Sig albuterol HFA (PROAIR HFA) 90 mcg/actuation inhaler Inhale 2 Puffs as instructed every 4 hours as needed for wheezing/shortness of breath. 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) gabapentin (NEURONTIN) 300 mg capsule Take 2 capsules by mouth daily at bedtime AND 1 capsule everymorning. Do all this for 180 days. triamcinolone acetonide (KENALOG) 0.1 % cream Apply 1 application to affected area three times daily as needed. For rash on extremities and leg budesonide-formoterol (SYMBICORT) 160-4.5 mcg/actuation inhaler Inhale 2 Puffs as instructed twice daily. ([facility] pulmonology) methocarbamol (ROBAXIN) 500 mg tablet [...] Hemorrhagic Disorder Due to Extrinsic Circulating Anticoagulants ([facility]) - 09/23/2023 Ulcer of Right Lower Extremity With Fat Layer Exposed ([facility]) - 07/26/2023 Pulmonary Hypertension ([facility]) - 05/03/2023 Ramesh (Obstructive Sleep Apnea) - 01/21/2021 Pacemaker - 01/21/2021 Bilateral Carpal Tunnel Syndrome - 01/21/2021 Atrial Flutter ([facility]) - 04/12/2019 Anticoagulated On Coumadin - 04/12/2019 Severe Low Back Pain - 12/28/2018 Ddd (Degenerative Disc Disease), Lumbar Comment: Dr. Agudelo Muscle Spasm Rotator Cuff Tear - 05/06/2011 Diabetes Mellitus Type 2, Controlled, Without Complications ([facility]) Hyperlipemia - 12/19/2010 Back Strain, [...] time. Discussed possible side effects including constipation. Advisedto use caution when operating heavy machinery and [...] All prescriptions have been APPROPRIATELY filled. No suspiciousactivity was identified. 09/23/2023 by Whitney Hammond APRN.CNP [...] from today's visit and in agreement with treatmentplan. Questions answered. Agrees to call the office [...] as well as compliance with taking medications. Age- appropriate health preventative measures were discussed. Return if symptoms worsen or fail to improve, for Keep next scheduled appointment.. Whitney Hammond APRN-DOMINGO documented in this encounterSelect [facility] [place]-24-2023 Miscellaneous Notes* Telephone Encounter - Carolina Kuo LPN - 09/18/2023 12:40 PM EST Last office visit: 06/22/23 Next appointment scheduled: 09/23/23 * Telephone Encounter - Mattie Mosley - 09/18/2023 12:20 PM EST Patient has been identified by name and date of : Yes Requested Prescriptions Pending Prescriptions Disp Refills albuterol HFA (PROAIR HFA) 90 mcg/actuation inhaler 1 Each 3 Sig: Inhale 2 Puffs as instructed every 4 hours as needed for wheezing/shortness of breath. 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) RX INSTRUCTIONS: Patient aware RX will be sent to pharmacy. No need to notify patient. Mattie Mosley documented in this encounterSelect [facility] [place]11-16-2023 Miscellaneous Notes* Telephone Encounter - Maddie Rojo LPN - 09/10/2023 2:59 PM EST Left a message with information listed below. Maddie Rojo LPN * Telephone Encounter - Trini Tang APRN.CNS - 09/10/2023 2:29 PM EST If her back pain is a 10 of 10 and not being helped with medications she should go to the emergencydepartment for further evaluation and treatment. * Telephone Encounter - Tamy Donis LPN - 09/10/2023 2:17 PM EST Patient calling to ask if provider gave an answer. Went over notes below from Trini Tang SUBSTATION SUPERVISOR with understanding. Patient is going to call [facility] and discuss with them. * Telephone Encounter - Guerline Davila LPN - 09/10/2023 2:17 PM EST Attempted to contact patient but no answer. Left message for patient to call office and ask to speak to a nurse regarding back pain. * Telephone Encounter - Trini Tang APRN.CNS - 09/10/2023 1:29 PM EST If her back pain is a 10 of 10 and not being helped with medications she should go to the emergencydepartment for further evaluation and treatment. I sent a refill of the TENS unit electrodes to [facility], not sure if they can provide that for her or not. If it needs to go to a DME she will have to let us know which one that he has. * Telephone Encounter - Elvia Orellana LPN - 09/10/2023 8:10 AM EST Pt has ongoing back pain, states it has been worse lately, low right side. Pt reports pain a 10 on 0-10 pain scale, pt is tearful on the phone. Taking oxycodone but states it is not touching the pain. Pt is asking for a new TENS unit, states hers is old & worn out. Pt uses [facility] in [place]. Please notify pt of response. Elvia Orellana LPN documented in this encounterSelect [facility] [place]11-09-2023 Progress note Author Naeem Myers [facility] September 03, 2023 1:05pm Note Date/Time September 03, 2023 8 :40am [facility] [address] [place] [id number] Progress Note - Wound Care 09/03/23 0836 MR#: [id number] Acct: [id number] Name: KEISHA RED Rep #:[id number] : 1945 78 From: Naeem barry DPM PCP: Dr. Joon Lopez MD Status:RE G RCR Location: History of Present Illness Date of Service: 09/03/23 Chief Complaint: Nonhealing right leg ulcer. History of Wound: Ms. Red is a 78-year-old with PMHx of DM type II, A-fib, HLD, HTN, RAMESH, and obesity. She states roughly 4 weeks ago she dropped a rotisserie chicken and mashed potatoes onto the top of her left foot which resulted in significant burn to the dorsal aspect of the left foot with accompanying localized rubor. She had seen her PCP who placed her on a course of Keflex and she has finished this antibiotic to completion. She was referred to the wound care center for continued care secondary to nonhealing eschar covering the wound to the dorsal foot at the base of the third and fourth digits. Patient does state that the wound is tender to the touch. She denies any N/V/F/chills. Denies any further complaints. Subjective Subjective Patient is a 78-year-old female who follows to the wound care center with ulceration to the dorsal aspect of the left foot. She states she has been changing the outer dressings daily with the assistance of her granddaughter and daughter. She denies constitutional symptoms. Denies further complaints. Objective Data Objective Data Vital Signs: Vital Signs Temp Pulse Resp BP Pulse Ox O2 Del Method 97 F L 91 18 176/87 H 97 Room Air 09/03/23 08:05 09/03/23 08:05 08/26/23 00:48 09/03/23 08:05 09/03/23 08:05 09/03/23 08:05 Oxygen Delivery Method Room Air Weight: 87.997 kg Body Mass Index (BMI) 29.5 Physical Exam Const alert, oriented x3 and no apparent distress General Appearance: cooperative HEENT normocephalic Eyes General Eye: normal appearance of both eyes Neck General: normal visual inspection Lymph Lymphatic: no lymphadenopathy noted and no lymphedema noted Resp normal respiratory effort Cardio regular rate and regular rhythm Extremity normal capillary refill, no joint enlargement, no calf tenderness and no pedal edema Extremity Narrative: DP and PT pulses weakly palpable. Capillary fill time is less than 4 seconds tothe digits. On Doppler DP and PT are triphasic. Dermatological: Wound to the dorsal aspect of the left foot near the base of thethird and fourth digits has healed. Surrounding skin is thin. Musculoskeletal: Muscle strength 5 of 5 age-appropriate. There is decreased range of motion of the ankle joint in dorsiflexion with the knee extended without pain or crepitus. Skin no rashes or lesions noted, skin turgor normal and no jaundice Neuro moves all extremities Debridement Note Debridement Note No debridement was completed: No debridement was completed today Post-Debridement Measurements and Additional Note: Post-Debridement Measurements/Treatment WC - Nurse 1 - General Ulcer Assessment Start: 09/03/23 08:04 Freq: Status: Active Protocol: WC.ROMULO Activity Type Activity Date Activity User E-sign Co-sign Detail Recorded Client Recorded Date Recorded By Document 09/03/23 08:05 [employer] 09/03/23 08:16 KW 09/03/23 08:05 - Today's Visit Information Type of service 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 ) Arrival Mode Ambulatory Patient Identification Verified (Name & Yes ) Height and Weight Body Mass Index (BMI) 29.5 BMI Classification Overweight Vital Signs Temperature (97.8 F-99.1 F) 97 F L Temperature Source Temporal Pulse Rate (60-100) 91 Pulse Location Monitor Respiratory rate source Observation Pulse Oximetry 97 Oxygen Delivery Method Room Air Blood Pressure (90/60-120/80) 176/87 H Blood Pressure Mean (mm Hg) 116 Source Monitor Position Semi-Fowlers Blood Pressure Location Left Arm History Since Last Visit- (Skip if this is Patient's initial visit) Have you changed medications since your No last visit? Any new allergies or adverse reactions No Had a fall/change in ADL's that may Yes increase risk of falls Signs or symptoms of abuse and/or No neglect since last visit Have you been in the hospital since your Yes last visit? Has dressing in place as prescribed Yes Has compression in place as prescribed Yes Has offloadiing in place as prescribed No Experienced any changes in pain level or No management Left Footwear Regular Shoe Right Footwear Regular Shoe Pain Scale: 0-10 Numeric Is Patient Pain Free? Yes - Nurse 1 - General Ulcer Measurement Start: 09/03/23 08:04 Freq: Status: Active Protocol: Activity Type Activity Date Activity User E-sign Co-sign Detail Recorded Client Recorded Date Recorded By Document 09/03/23 08:05 [employer] 09/03/23 08:16 KW 09/03/23 08:05 Wound Center Nurse 1 3-left dorsal foot -Texture (Beth-wound Skin Appearance) Assessed -Moisture (Beth-wound Skin Appearance) Assessed -Color (Beth-wound Skin Appearance) Assessed -Ulcer Cleansing Soap and Water -Anesthetic Used 5% Lidocaine Gel -Wound Comment(s) scabbed Assessment/Plan Assessment/Plan (1) Non-pressure chronic ulcer of other part of left foot with fat layer exposed: CODE(S): L97.522 - Non-pressure chronic ulcer of other part of left foot with fat layer exposed (2) Pain in left foot: CODE(S): M79.672 - Pain in left foot (3) Diabetes mellitus: CODE(S): E11.9 - Type 2 diabetes mellitus without complications QUALIFIERS: Diabetes mellitus complication detail: with foot ulcer Diabetes mellitus complication status: with skin complications 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 insulin use: unspecified long-term insulin use status Diabetes mellitus type: type 2 Qualified Code(s): E11.621 - Type 2 diabetes mellitus with foot ulcer; L97.509 - Non- pressure chronic ulcer of other part of unspecified foot with unspecified severity (4) Hyperlipidemia: CODE(S): E78.5 - Hyperlipidemia, unspecified QUALIFIERS: Hyperlipidemia type: unspecified Qualified Code(s): E78.5 - Hyperlipidemia, unspecified (5) Essential hypertension: CODE(S): I10 - Essential (primary) hypertension PLAN: Plan Patient seen and evaluated 14 weeks ago patient dropped hot chicken and mashed potatoes on the top of her left foot resulting in a burn to the dorsal foot with skin eschar secondary to thin skin. Wound has not progressed secondary to diabetic status. She has completed full course of Keflex. Ulceration has healed today. Overlying skin is still sensitive. She was instructed to keep a Band-Aid covering over the previous wound site for added protection of skin and may discontinue application after 7 days. Last known A1c performed at [facility] 06/18/2022 was 6.1%. Discussed proper diabetic diet to ensure tight glycemic control. Discussed she is not to be barefoot given her diabetic status indoors or outdoors. Shoe gear was encouraged to be worn at all times. Discussed that socks count is barefoot. The following work up and care recommendations were made: Dressing: Band-Aid for next 7 to 10 days Wash: May wash with soap and water Tissue growth optimization: None Offload: Ensure shoe gear does not rub on the wound site Vascular: DP and PT pulses weakly palpable however triphasic on Doppler. Adequate capillary fill time to digits. Edema: None Infection: No signs of infection Pain: May take [id number] Tylenol for discomfort Host factors: DM type II, obesity, HTN, HLD, patient education on barefoot status encouraged shoe gear to be worn. At this time with healed status patient is discharged from the wound care centertoday. I answered all the patient's questions. To return to the wound healing center as needed or call sooner if the patient has any questions or concerns. 09/03/23 1305 <Electronically signed by Naeem Myers DPM> Cosigner Signature (if applicable): CC: ~ Signed [facility] Work Phone: 1(920) 979-563011-07-2023 Discharge summary Author Pete Che [facility] September 01, 2023 5:25pm Note Date/Time September 01, 2023 3 :13pm [facility] Medical Records Department [address] [place] [address] Emergency Department Summary 09/01/23 MR#: [id number] Acct: [id number] Name: KEISHA RED Rep #:[id number] : 1945 78 From: Pete Che MD PCP: Dr. Joon Lopez MD Status:RE G ER Location: ED HPI HPI - Fall History of Present Illness Chief Complaint: Fall Informant: patient Occured/Mechanism Occurred: Today Mechanism/Context: Yes same level fall and Yes trip Narrative: Over dog Pain/Injury Pain Location: head and neck Current Severity: Moderate Maximum Severity: Severe Worsened by: Moving head/neck Relieved by: Remaining still Associated Symptoms Associated Symptoms: Negative for Parasthesias, Weakness, Loss of function, Inability to ambulate, Loss of consciousness or Amnesia Narrative Narrative: Patient states she was letting one of her dogs out at home, the other dog causedher to accidentally trip, she fell backwards hitting her head on a nearby kitchen table. No other injuries, just her head/upper neck. She is on warfarindue to atrial fibrillation. No recent bleeding from anywhere. No recent illness. No prodromal symptoms causing this fall. 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 Contact dermatitis and other eczema COVID-19 Cystitis DDD (degenerative disc disease) Diabetes mellitus Encephalopathy acute Essential hypertension Hx of bladder infections Hyperlipidemia Hypersomnia USP (current) use of anticoagulants Obesity RAMESH (obstructive sleep apnea) Other secondary pulmonary hypertension Palpitations Pneumonia Shoulder dislocation Home Medications warfarin 5 mg tablet 5 mg PO DAILY blood thinner 11/18/18 [History Last Taken 06/15/22] atorvastatin 10 mg tablet 10 mg PO QHS cholesterol 12/11/19 [History Last Taken 06/15/22] TENS unit electrodes #2 ea 07/11/20 [History Last Taken Unknown] oxycodone-acetaminophen 5 mg-325 mg tablet 1 tab PO DAILY PRN pain 12/07/20 [History Last Taken 06/15/22] cyclobenzaprine 10 mg tablet 5 - 10 mg PO BID PRN Spasms 06/17/22 [History Last Taken 06/16/22] magnesium oxide 400 mg PO DAILY supplement 06/17/22 [History Last Taken 06/16/22] metformin 500 mg tablet,extended release 24 hr 1,000 mg PO BID DM 06/17/22 [History Last Taken 06/16/22] gabapentin 300 mg capsule 300 mg PO BREAKFAST nerve pain 08/04/22 [History Last Taken Unknown] gabapentin 300 mg capsule 600 mg PO QHS Neuropathy 08/04/22 [History Last Taken Unknown] budesonide-formoterol HFA 160 mcg-4.5 mcg/actuation aerosol inhaler (Symbicort) 2 puff inhalation BID asthma #10.2 grams 10/14/22 [Rx Last Taken Unknown] albuterol sulfate 90 mcg/actuation aerosol inhaler 2 puff inhalation Q4H PRN shortness of breath or wheezing #8.5 grams 05/24/23 [Rx Last Taken Unknown] Allergy/AdvReac Type Severity Reaction Status Date / Time amoxicillin Allergy Severe Hives Verified 09/01/23 15:01 aspirin Allergy Severe Hives, SOB Verified 09/01/23 15:01 Sulfa (Sulfonamide Allergy Severe Hives Verified 09/01/23 15:01 Antibiotics) Family History Mother Diabetes Father CAD (coronary artery disease) Sister Lung cancer Son Kidney stone Surgical History History of appendectomy History of kidney surgery Presence of permanent cardiac pacemaker (04/01/19) Social History household members: none housing: house number of children: 3 current occupational status: retired Smoking Status: Never smoker alcohol intake: never substance use type: does not use what type of physical activity do you participate in: none do you feel safe at home: Yes ROS ROS ED Constitutional Constitutional ED: Denies chills or fever(s) Eyes Eyes: Denies change in vision or diplopia ENT ENT ED: Denies ear pain, epistaxis, facial pain or rhinorrhea Cardiovascular Cardiovascular: Denies chest pain or palpitations Respiratory/Chest Respiratory/Chest: Denies cough or dyspnea Gastrointestinal Gastrointestinal: Denies abdominal pain, diarrhea, melena, nausea or vomiting Genitourinary Genitourinary ED: Denies dysuria or hematuria Musculoskeletal Musculoskeletal: Reports neck pain; Denies back pain or extremity pain Integumentary Denies abscess, Abrasions, laceration or rash Neurologic Neurologic: Reports other Details: Mild headache earlier, resolved ; Denies confusion, headache(s), paresthesias or weakness EXAM Physical Exam Const Vital Signs: 09/01/23 15:01 09/01/23 15:30 Temperature 97.4 F L Temperature Source Temporal Pulse Rate 69 Respiratory Rate 18 Respiratory Effort Normal Non-Labored Respiratory Depth Normal Respiratory Pattern Normal Blood Pressure 154/102 H Blood Pressure Mean 119 Pulse Ox 99 Oxygen Delivery Method Room Air Room Air Positive well nourished and well developed General Appearance ED: well developed and NAD HEENT Reports TM's clear and nasal mucous membranes and turbinates normal HEENT Narrative: Traumatic contusion, no boggy hematoma, posterior head caudal to the occiput. No crepitance or depression. No other signs of HEENT trauma. trauma Face and Sinus: Negative for facial tenderness Tympanic Membrane ED: Yes TM's clear Eyes PERRL and EOMs intact bilaterally Visual Acuity: other Other Details: no entrapment or pain with extraocular movements Neck full ROM and supple Neck Narrative: Tender throughout upper back no deformities, can move without limitations. Swollen over this area due to the injury. General: tenderness Chest Wall inspection of chest normal and palpation of chest normal Chest: symmetrical chest wall rise; Negative for crepitus or tenderness Resp normal respiratory effort and clear to auscultation bilaterally Percussion: other equal BS bilat GI normal to inspection, nondistended, normoactive bowel sounds, soft to palpation and non-tender Back/Spine normal ROM Cervical Spine: Negative for cervical spine tenderness Thoracic Spine / Upper Back: Negative for thoracic spinal tenderness Lumbar Spine / Lower Back: Negative for lumbar spinal tenderness Extremity normal to inspection and full ROM General Extremety ED: Negative for tenderness Neuro oriented x3, CN's II-XII intact bilaterally, moves all extremities, no focal motor deficits and no sensory deficits noted [place] Coma Scale: document GCS findings Spontaneous Obeys Commands Oriented 15 Sensorium / Orientation: awake and alert Psych mental status grossly normal and thought process normal Skin no wounds Lesions: no lesions Rashes: no rashes MDM MDM MDM Narrative Medical decision making narrative: Check patient's INR is therapeutic at 2.5. CT of the head and cervical spine were obtained given signs of trauma involving both, basically at the junction. I reviewed the images and the report which I agree with, basically negative for anything acute, intracranial bleed or fracture. Patient reassured, she was offered analgesics like Tylenol and she declined, supportive care advised she was given an ice pack. Lab Data Attestation: I reviewed the patient's lab results. Labs: Laboratory Results - last 24 hr 09/01/23 15:27 PT 27.3 H INR 2.5 Radiography Diagnostic Testing: Clinical Impression(s) from Imaging Studies Brain CT 09/01/23 16:10 IMPRESSION: 1. No acute intracranial abnormality. There has been no significant change from the reference exam. 2. Stable underlying senescent change with small vessel ischemia. Electronically Signed: Adrien Brownlee MD at 16:39 EST , Cervical Spine CT 09/01/23 16:10 IMPRESSION: 1. No acute osseous abnormalities of the cervical spine. 2. Multilevel degenerative change with disc space narrowing, facet hypertrophy and bony neural foraminal narrowing. Electronically Signed: Adrien Brownlee MD at 16:41 EST , Discharge Plan Triage Chief Complaint: Fall ED Provider: Pete Che Dx/Rx/DC Orders Clinical Impression: Closed head injury without concussion, Fall from slip, trip, or stumble, Warfarin-induced coagulopathy, Contusion of neck Instructions: ED Head Injury (Adult) Prescriptions: No Action oxycodone-acetaminophen 5-325 mg tablet 1 tab PO DAILY PRN (Reason: pain) (DME) TENS unit electrodes Pad See Rx Instructions .ROUTE .MEDSUPPLY Qty: 2 Rx Instructions: As directed Symbicort 160-4.5 mcg/actuation HFA aerosol inhaler 2 puff INHALATION BID Qty: 10.2 11RF warfarin 5 MG tablet 5 mg PO DAILY Protocol: Dose Management Condition: Thursday Dose/Route: 2.5 mg Instruction: 0.5 x 5 mg tablets Condition: Thursday Dose/Route: 5 mg Instruction: 1 x 5 mg tablet Condition: Thursday Dose/Route: 5 mg Instruction: 1 x 5 mg tablet Condition: Thursday Dose/Route: 5 mg Instruction: 1 x 5 mg tablet Condition: Dose/Route: 5 mg Instruction: 1 x 5 mg tablet Condition: Thursday Dose/Route: 2.5 mg Instruction: 0.5 x 5 mg tablets Condition: Thursday Dose/Route: 2.5 mg Instruction: 0.5 x 5 mg tablets Protocol Text: Adjustment Start Date: Thursday07/10/23 INR Value: 2.3 INR Date: 07/10/23 Recheck Date: 07/31/23 Rx Instructions: 5 mg. , , THU atorvastatin 10 MG tablet 10 mg PO QHS gabapentin 300 mg capsule 600 mg PO QHS cyclobenzaprine 10 mg Tablet 5 - 10 mg PO BID PRN (Reason: Spasms) metformin 500 mg tablet extended release 24 hr 1,000 mg PO BID Patient Comments: Take 2 tablets by mouth twice daily with meals. magnesium oxide 400 mg magnesium Tablet 400 mg PO DAILY gabapentin 300 mg capsule 300 mg PO BREAKFAST Patient Comments: Take 2 capsules by mouth daily at bedtime AND 1 capsule every morning. Rx Instructions: 300 mg orally; albuterol sulfate 90 mcg/actuation HFA aerosol inhaler 2 puff INHALATION Q4H PRN (Reason: shortness of breath or wheezing) Qty: 8.5 6RF Rx Instructions: administer with spacer Primary Care Provider: Joon Lopez Referrals: Joon Lopez MD [Primary Care Provider] - As Needed Disposition Disposition: Home, Self Care What to do if you have Problems For any increased pain, shortness of breath, bleeding, nausea or vomiting, chestpain, or any unexpected problems, contact your Primary Care Provider. Call [facility] ([phone]) or report to the closest Emergency Room. Call 911 if necessary. 09/01/23 1725 <Electronically signed by Pete Che MD> Cosigner Signature (if applicable): CC: Dr. Joon Lopez MD ~ Signed [facility] Work Phone: 1(777) 561-687709-28-2023 Progress note Author Naeem [facility] July 23, 2023 9:11am Note Date/Time July 23, 2023 8:33am [facility] [address] [place] [address] Progress Note - Wound Care 07/23/23 0833 MR#: [id number] Acct: [id number] Name: KEISHA RED Rep #:[id number] : 1945 78 From: Naeem barry DPM PCP: Dr. Joon Lopez MD Status:RE G RCR Location: History of Present Illness Date of Service: 07/23/23 Chief Complaint: Nonhealing right leg ulcer. History of Wound: Ms. Red is a 78-year-old with PMHx of DM type II, A-fib, HLD, HTN, RAMESH, and obesity. She states roughly 4 weeks ago she dropped a rotisserie chicken and mashed potatoes onto the top of her left foot which resulted in significant burn to the dorsal aspect of the left foot with accompanying localized rubor. She had seen her PCP who placed her on a course of Keflex and she has finished this antibiotic to completion. She was referred to the wound care center for continued care secondary to nonhealing eschar covering the wound to the dorsal foot at the base of the third and fourth digits. Patient does state that the wound is tender to the touch. She denies any N/V/F/chills. Denies any further complaints. Subjective Subjective Patient is a 78-year-old female who follows to the wound care center with ulceration to the dorsal aspect of the left foot. She states she has been changing the outer dressings daily with the assistance of her granddaughter and daughter. Her daughter accompanies her today and states she is wound is continuing to improve and is looking smaller than last week. States her mothers pain has improved as well. She denies constitutional symptoms. Denies further complaints. Objective Data Objective Data Vital Signs: Vital Signs Temp Pulse Resp BP O2 Del Method 95.5 F L 88 20 H 138/74 H Room Air 07/23/23 08:09 07/23/23 08:09 07/23/23 08:09 07/23/23 08:09 07/09/23 08:12 Oxygen Delivery Method Room Air Weight: 87.997 kg Body Mass Index (BMI) 29.5 Physical Exam Const alert, oriented x3 and no apparent distress General Appearance: cooperative HEENT normocephalic Eyes General Eye: normal appearance of both eyes Neck General: normal visual inspection Lymph Lymphatic: no lymphadenopathy noted and no lymphedema noted Resp normal respiratory effort Cardio regular rate and regular rhythm Extremity normal capillary refill, no joint enlargement, no calf tenderness and no pedal edema Extremity Narrative: DP and PT pulses weakly palpable. Capillary fill time is less than 4 seconds tothe digits. On Doppler DP and PT are triphasic. Dermatological: There is a wound noted to the dorsal aspect of the left foot at the base of the third and fourth digits with scant yellow fibrotic tissue in thewound bed. No erythema, no purulent drainage, no malodor, no palpable fluctuance/bogginess, no visible abscess, no lymphangitic streaking. Surrounding skin is thin. Musculoskeletal: Muscle strength 5 of 5 age-appropriate. There is decreased range of motion of the ankle joint in dorsiflexion with the knee extended without pain or crepitus. Pain to palpation about ulcerative site. Skin no rashes or lesions noted, skin turgor normal and no jaundice Neuro moves all extremities Debridement Note Debridement Note Wound debrided: Left foot Laterality: Left Wound Grade/Stage: Saeed stage I Type of Debridement: Excisional debridement Anesthesia Used: 5% Lidocaine Gel Depth: Down to and including healthy tissue and in the subcutaneous layer Percentage of wound debrided: 100 Instrument Used: 5mm curette Tissue Removed: Fibrous, devitalized subcutaneous, biofilm, slough Severity: Fat Layer Exposed Amount of bleeding with debridement: Mild Bleeding Controlled with: Compression and gauze Patient tolerated procedure: Patient tolerated procedure well Post-Debridement Measurements and Additional Note: Post-Debridement Measurements/Treatment WC - Nurse 1 - General Ulcer Assessment Start: 07/02/23 08:02 Freq: Status: Active Protocol: AMEE Activity Type Activity Date Activity User E-sign Co-sign Detail Recorded Client Recorded Date Recorded By Document 07/02/23 08:03 DL [id number] 07/02/23 08:10 DL Document 07/09/23 08:12 KW [id number] 07/09/23 08:30 KW Document 07/16/23 08:04 DL Desktop 07/16/23 08:11 DL Document 07/23/23 08:09 DL Desktop 07/23/23 08:12 DL 07/02/23 07/09/23 07/16/23 08:03 08:12 08:04 WC - Today's Visit Information Type of service Follow-up Visit Follow-up Visit 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 (Physician/RADAR ENGINEERING TEACHER (Physician/RADAR ENGINEERING TEACHER ) ) ) Arrival Mode Ambulatory Ambulatory Ambulatory Transfer Assistance None None Accompanied by daughter Patient Identification Verified (Name & Yes Yes Yes ) Patient Requires Transmission-Based No No Precautions Finger Stick Blood Sugar(mg/dl) (if 142 indicated): Blood Sugar Stated by Patient Height and Weight Body Mass Index (BMI) 29.5 29.5 29.5 BMI Classification Overweight Overweight Overweight Vital Signs Temperature (97.8 F-99.1 F) 97.4 F L 96.8 F L 97.4 F L Temperature Source Temporal Temporal Temporal Pulse Rate (60-100) 92 86 86 Pulse Location Monitor Monitor Monitor Respiratory Rate (12-18) 20 H 18 18 Respiratory rate source Observation Observation Observation Oxygen Delivery Method Room Air Blood Pressure (90/60-120/80) 141/73 H 155/101 H 138/84 H Blood Pressure Mean (mm Hg) 95 119 102 Source Monitor Monitor Monitor Position Semi-Fowlers Blood Pressure Location Left Arm History Since Last Visit- (Skip if this is Patient's initial visit) Have you changed medications since your No No No last visit? Any new allergies or adverse reactions No No No Had a fall/change in ADL's that may No No No increase risk of falls Signs or symptoms of abuse and/or No No No neglect since last visit Have you been in the hospital since your No No No last visit? Has dressing in place as prescribed Yes Yes Yes Has compression in place as prescribed Yes Yes Yes Has offloadiing in place as prescribed N/A N/A N/A Experienced any changes in pain level or No No No management Left Footwear Regular Shoe Right Footwear Regular Shoe Pain Scale: 0-10 Numeric Is Patient Pain Free? Yes Yes Yes 07/23/23 08:09 WC - Today's Visit Information Type of service 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 ) Arrival Mode Ambulatory Transfer Assistance None Accompanied by Patient Identification Verified (Name & Yes ) Patient Requires Transmission-Based No Precautions Finger Stick Blood Sugar(mg/dl) (if indicated): Blood Sugar Height and Weight Body Mass Index (BMI) 29.5 BMI Classification Overweight Vital Signs Temperature (97.8 F-99.1 F) 95.5 F L Temperature Source Temporal Pulse Rate (60-100) 88 Pulse Location Respiratory Rate (12-18) 20 H Respiratory rate source Oxygen Delivery Method Blood Pressure (90/60-120/80) 138/74 H Blood Pressure Mean (mm Hg) 95 Source Monitor Position Blood Pressure Location History Since Last Visit- (Skip if this is Patient's initial visit) Have you changed medications since your No last visit? Any new allergies or adverse reactions No Had a fall/change in ADL's that may No increase risk of falls Signs or symptoms of abuse and/or No neglect since last visit Have you been in the hospital since your No last visit? Has dressing in place as prescribed Yes Has compression in place as prescribed Yes Has offloadiing in place as prescribed Yes Experienced any changes in pain level or No management Left Footwear Right Footwear Pain Scale: 0-10 Numeric Is Patient Pain Free? Yes - Nurse 1 - General Ulcer Measurement Start: 07/02/23 08:02 Freq: Status: Active Protocol: Activity Type Activity Date Activity User E-sign Co-sign Detail Recorded Client Recorded Date Recorded By Document 07/02/23 08:03 DL [id number] 07/02/23 08:10 DL Document 07/09/23 08:12 KW [id number] 07/09/23 08:30 KW Document 07/16/23 08:04 DL Desktop 07/16/23 08:11 DL Document 07/23/23 08:09 DL Desktop 07/23/23 08:12 DL 07/02/23 07/09/23 07/16/23 08:03 08:12 08:04 Wound Center Nurse 1 3-left dorsal foot -Current Size (cm) - Length 1.9 2.0 1.5 -Current Size (cm) - Width 1.6 1.5 1 -Current Size (cm) - Depth 0.3 0.4 0.3 -Total Square Cm 3.04 3.00 1.5 -Exudate Amt Medium Medium Medium -Exudate Type Serosanguineous Yellow/Green Serosanguineous -Wound Margin Distinct, Distinct, Distinct, Outline Outline Outline Attached Attached Attached -Granulation Amt Medium (34-66%) Small (1-33%) Medium (34-66%) -Granulation Quality [place] Red Red -Necrosis Amt Medium (34-66%) Medium (34-66%) Medium (34-66%) -Necrotic Tissue Type Adherent Slough Adherent Slough Adherent Slough -Structure Exposed N/A N/A -Texture (Beth-wound Skin Appearance) Scarring Assessed Scarring -Moisture (Beth-wound Skin Appearance) Maceration Assessed No Abnormality -Color (Beth-wound Skin Appearance) No Abnormality Assessed Hemosiderin Staining -Temperature (Beth-wound Skin No Abnormality No Abnormality No Abnormality Appearance) (Pt Warm) (Pt Warm) (Pt Warm) -Tenderness on Palpation (Beth-wound No No Skin Appearance) -Ulcer Cleansing Soap and Water Soap and Water Soap and Water -Foul Odor after Cleansing No No -Anesthetic Used 5% Lidocaine 5% Lidocaine 5% Lidocaine Gel Gel Gel Left Calf (cm) 37.5 36.5 Left Ankle (cm) 30 21.8 07/23/23 08:09 Wound Center Nurse 1 3-left dorsal foot -Current Size (cm) - Length 1.3 -Current Size (cm) - Width 1 -Current Size (cm) - Depth 0.1 -Total Square Cm 1.3 -Exudate Amt Small -Exudate Type Serosanguineous -Wound Margin Distinct, Outline Attached -Granulation Amt Large (67-100%) -Granulation Quality -Necrosis Amt Small (1-33%) -Necrotic Tissue Type Adherent Slough -Structure Exposed N/A -Texture (Beth-wound Skin Appearance) Scarring -Moisture (Beth-wound Skin Appearance) No Abnormality -Color (Beth-wound Skin Appearance) Erythema -Temperature (Beth-wound Skin No Abnormality Appearance) (Pt Warm) -Tenderness on Palpation (Beth-wound No Skin Appearance) -Ulcer Cleansing Soap and Water -Foul Odor after Cleansing No -Anesthetic Used 5% Lidocaine Gel Left Calf (cm) 37.5 Left Ankle (cm) 22.8 WC - Nurse 2 - General Ulcer CM Notes Start: 07/02/23 08:02 Freq: Status: Active Protocol: Activity Type Activity Date Activity User E-sign Co-sign Detail Recorded Client Recorded Date Recorded By Document 07/02/23 11:41 PL [id number] 07/02/23 11:50 PL Document 07/09/23 12:51 PL [id number] 07/09/23 12:54 PL Document 07/16/23 11:49 PL [id number] 07/16/23 11:54 PL 07/02/23 07/09/23 07/16/23 11:41 12:51 11:49 Wound Center Nurse 2 3-left dorsal foot -Time 08:39 08:40 08:36 -Correct Patient Yes Yes Yes -Correct Side, Site, Position Yes Yes Yes -Correct Procedure Yes Yes Yes -Procedure Performed Yes Yes Yes -Type of Procedure Debridement Debridement Debridement -Clinical Debridement Subcutaneous Subcutaneous Subcutaneous -Tissue Removed Subcutaneous Subcutaneous Subcutaneous -Post Debridement (cm) - Length 2.1 1.5 1.3 -Post Debridement (cm) - Width 1.4 1.7 1.0 -Post Debridement (cm) - Depth 0.2 0.4 0.3 -Total Square (Post) (cm) 2.94 2.55 1.30 -Area of Debridement (cm) - Length 2.1 1.5 1.3 -Area of Debridement (cm) - Width 1.4 1.7 1.0 -Total Square (Area) (cm) 2.94 2.55 1.30 -Tunneling No No No -Undermining/Tunneling No No No -Circular Undermining No No No -Wound/Ulcer Outcome Not Healed Not Healed Not Healed -Ulcer Cleansing Rinsed/ Rinsed/ Rinsed/ Irrigated with Irrigated with Irrigated with Saline Saline Saline -Foul Odor after Cleansing No No No -Bioengineered Tissue Yes Yes Yes -Type of Bioengineered Tissue Epifix Epifix 18mm Epifix 18mm Disc Disc -Expiration Date 02/24/28 03/26/28 03/26/28 -Product Lot Number [id number] -Percent Used 100 100 100 -Bleeding Controlled with Pressure Pressure Pressure -Treatment Response Procedure Procedure Procedure Tolerated Well Tolerated Well Tolerated Well -Debridement - Subq, 1st 20sq cm No No No -Apply Skin Sub - 1st 25 sq cm - Feet 1 1 1 -Epifix (per sq cm) 4 -Epifix 18mm Disc 3 3 Pain Scale: 0-10 Numeric Is Patient Pain Free? Yes Yes Yes - Nurse 3 - General Ulcer D/C NN Start: 07/02/23 08:02 Freq: Status: Active Protocol: Activity Type Activity Date Activity User E-sign Co-sign Detail Recorded Client Recorded Date Recorded By Document 07/02/23 08:54 KW [id number] 07/02/23 08:54 KW Document 07/09/23 09:03 DL [id number] 07/09/23 09:05 DL Document 07/16/23 08:54 DL Desktop 07/16/23 08:55 DL 07/02/23 07/09/23 07/16/23 08:54 09:03 08:54 Wound Care Center Nurse 3 3-left dorsal foot -Foul Odor after Cleansing No No -Other Dressing Epi Epifix -Primary Dressing Covered/Secured with Dry Gauze & Dry Gauze & Dry Gauze & Roll Gauze, Roll Gauze, Roll Gauze, Secured with Secured with Secured with Tape Tape Tape -Other Covering ABD Left -Tubular Bandage Single Layer Single Layer -Size of Tubigrip Used Size E Size E -Size E ($) 1 1 Treatment Response Procedure Tolerated Well Pain Scale: 0-10 Numeric Is Patient Pain Free? Yes Yes Yes - Visit Discharge Discharge Condition Stable Stable Stable Ambulatory Status Ambulatory Ambulatory Ambulatory Transportation Private Auto Private Auto Private Auto Medication Reconcilliation completed & No provided to patient/care provider Clinical Summary of Care Provided Yes Assessment/Plan Assessment/Plan (1) Non-pressure chronic ulcer of other part of left foot with fat layer exposed: CODE(S): L97.522 - Non-pressure chronic ulcer of other part of left foot with fat layer exposed (2) Pain in left foot: CODE(S): M79.672 - Pain in left foot (3) Essential hypertension: CODE(S): I10 - Essential (primary) hypertension (4) Hyperlipidemia: CODE(S): E78.5 - Hyperlipidemia, unspecified QUALIFIERS: Hyperlipidemia type: unspecified Qualified Code(s): E78.5 - Hyperlipidemia, unspecified (5) Diabetes mellitus: CODE(S): E11.9 - Type 2 diabetes mellitus without complications QUALIFIERS: Diabetes mellitus complication detail: with foot ulcer Diabetes mellitus complication status: with skin complications Diabetes mellitus long-term insulin use: unspecified safety equipment tester insulin use status Diabetes mellitus type: type 2 Qualified Code(s): E11.621 - Type 2 diabetes mellitus with foot ulcer; L97.509 - Non- pressure chronic ulcer of other part of unspecified foot with unspecified severity PLAN: Plan Patient seen and evaluated 10 weeks ago patient dropped hot chicken and mashed potatoes on the top of her left foot resulting in a burn to the dorsal foot with skin eschar secondary to thin skin. Wound has not progressed secondary to diabetic status. She has completed full course of Keflex. Ulceration underwent debridement as noted in the clinical panel above. Ulceration measures 1.1 cm x 0.9 cm x 0.2 cm. Ulceration does demonstrate localized rubor secondary to her burn, with improving rubor. No signs of infection. Following debridement healthy, bleeding granular tissue remained. Epifix graft #7 applied to the wound base and dressed with Adaptic touch and anchored with Steri-Strips, dressed with dry sterile dressing. She is to changethe outer dressing as needed. She was instructed to not get the dressings wet. Ulcerative site demonstrates improvement with reduction in size versus previous visit. She was approved for advanced wound care product, epi fix. We will continue application. Last known A1c performed at [facility] 06/18/2022 was 6.1%. Discussed proper diabetic diet to ensure tight glycemic control. Discussed she is not to be barefoot given her diabetic status indoors or outdoors. Shoe gear was encouraged to be worn at all times. Discussed that socks count is barefoot. Discussed adequate protein intake to aid in wound healing. She may take Bonifacio supplementation to aid in wound healing. The following work up and care recommendations were made: Dressing: EpiFix, Adaptic touch, Steri-Strips, dry sterile dressing. Change outer dressings as needed. Wash: Do not get wet Tissue growth optimization: EpiFix Offload: Ensure shoe gear does not rub on the wound site Vascular: DP and PT pulses weakly palpable however triphasic on Doppler. Adequate capillary fill time to digits. Edema: None Infection: No signs of infection Pain: May take [id number]-fytrjjv Tylenol for discomfort Host factors: DM type II, obesity, HTN, HLD, patient education on barefoot status encouraged shoe gear to be worn. I answered all the patient's questions. To return to the wound healing center in 1 week or call sooner if the patient has any questions or concerns. 07/23/23910 <Electronically signed by Naeem Myers DPM> Cosigner Signature (if applicable): CC: ~ Signed [facility] Work Phone: 1(362) 389-797709-21-2023 Miscellaneous Notes* Telephone Encounter - Trini Tang APRN.CNS - 07/16/2023 4:52 PM EDT ok * Telephone Encounter - Taylor Ruffin RN - 07/16/2023 3:27 PM EDT Patient calling to request order for new glucometer. Her old one is no longer working. [facility] [place]. Patient has been identified by name and [...] you. Taylor Ruffin RN [facility] [place] Progress note Author Naeem Myers [facility] July 16, 2023 9:02am Note Date/Time July 16, 2023 8:21am [facility] [address] [place] [address] Progress Note - Wound Care 07/16/23820 MR#: [id number] Acct: [id number] Name: KEISHA RED Rep #:[id number] : 1945 78 From: Naeem barry DPM PCP: Dr. Joon Lopez MD Status:RE G RCR Location: History of Present Illness Date of Service: 07/16/23 Chief Complaint: Nonhealing right leg ulcer. History of Wound: Ms. Red is a 78-year-old with PMHx of DM type II, A-fib, HLD, HTN, RAMESH, and obesity. She states roughly 4 weeks ago she dropped a rotisserie chicken and mashed potatoes onto the top of her left foot which resulted in significant burn to the dorsal aspect of the left foot with accompanying localized rubor. She had seen her PCP who placed her on a course of Keflex and she has finished this antibiotic to completion. She was referred to the wound care center for continued care secondary to nonhealing eschar covering the wound to the dorsal foot at the base of the third and fourth digits. Patient does state that the wound is tender to the touch. She denies any N/V/F/chills. Denies any further complaints. Subjective Subjective Patient is a 78-year-old female who follows to the wound care center with ulceration to the dorsal aspect of the left foot. She states she has been changing the outer dressings daily with the assistance of her granddaughter and daughter. Her daughter accompanies her today and states she is wound is continuing to improve and is looking smaller than last week. She denies constitutional symptoms. Denies further complaints. Objective Data Objective Data Vital Signs: Vital Signs Temp Pulse Resp BP O2 Del Method 97.4 F L 86 18 138/84 H Room Air 07/16/23 08:04 07/16/23 08:04 07/16/23 08:04 07/16/23 08:04 07/09/23 08:12 Oxygen Delivery Method Room Air Weight: 87.997 kg Body Mass Index (BMI) 29.5 Physical Exam Const alert, oriented x3 and no apparent distress General Appearance: cooperative HEENT normocephalic Eyes General Eye: normal appearance of both eyes Neck General: normal visual inspection Lymph Lymphatic: no lymphadenopathy noted and no lymphedema noted Resp normal respiratory effort Cardio regular rate and regular rhythm Extremity normal capillary refill, no joint enlargement, no calf tenderness and no pedal edema Extremity Narrative: DP and PT pulses weakly palpable. Capillary fill time is less than 4 seconds tothe digits. On Doppler DP and PT are triphasic. Dermatological: There is a wound noted to the dorsal aspect of the left foot at the base of the third and fourth digits with yellow fibrotic tissue in the woundbed with localized rubor secondary to burn from hot food. Rubor resolved. No erythema, no purulent drainage, no malodor, no palpable fluctuance/bogginess, novisible abscess, no lymphangitic streaking. Surrounding skin is thin. Musculoskeletal: Muscle strength 5 of 5 age-appropriate. There is decreased range of motion of the ankle joint in dorsiflexion with the knee extended without pain or crepitus. Pain to palpation about ulcerative site. Skin no rashes or lesions noted, skin turgor normal and no jaundice Neuro moves all extremities Debridement Note Debridement Note Wound debrided: Left foot Laterality: Left Wound Grade/Stage: Saeed stage I Type of Debridement: Excisional debridement Anesthesia Used: 5% Lidocaine Gel Depth: Down to and including healthy tissue and in the subcutaneous layer Percentage of wound debrided: 100 Instrument Used: 5mm curette Tissue Removed: Fibrous, devitalized subcutaneous, biofilm, slough Severity: Fat Layer Exposed Amount of bleeding with debridement: Mild Bleeding Controlled with: Compression and gauze Patient tolerated procedure: Patient tolerated procedure well Post-Debridement Measurements and Additional Note: Post-Debridement Measurements/Treatment JEANETTE - Nurse 1 - General Ulcer Assessment Start: 07/02/23 08:02 Freq: Status: Active Protocol: AMEE Activity Type Activity Date Activity User E-sign Co-sign Detail Recorded Client Recorded Date Recorded By Document 07/02/23 08:03 DL [id number] 07/02/23 08:10 DL Document 07/09/23 08:12 KW [id number] 07/09/23 08:30 KW Document 07/16/23 08:04 DL Desktop 07/16/23 08:11 DL 07/02/23 07/09/23 07/16/23 08:03 08:12 08:04 WC - Today's Visit Information Type of service Follow-up Visit Follow-up Visit 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 (Physician/RADAR ENGINEERING TEACHER (Physician/RADAR ENGINEERING TEACHER ) ) ) Arrival Mode Ambulatory Ambulatory Ambulatory Transfer Assistance None None Accompanied by daughter Patient Identification Verified (Name & Yes Yes Yes ) Patient Requires Transmission-Based No No Precautions Finger Stick Blood Sugar(mg/dl) (if 142 indicated): Blood Sugar Stated by Patient Height and Weight Body Mass Index (BMI) 29.5 29.5 29.5 BMI Classification Overweight Overweight Overweight Vital Signs Temperature (97.8 F-99.1 F) 97.4 F L 96.8 F L 97.4 F L Temperature Source Temporal Temporal Temporal Pulse Rate (60-100) 92 86 86 Pulse Location Monitor Monitor Monitor Respiratory Rate (12-18) 20 H 18 18 Respiratory rate source Observation Observation Observation Oxygen Delivery Method Room Air Blood Pressure (90/60-120/80) 141/73 H 155/101 H 138/84 H Blood Pressure Mean (mm Hg) 95 119 102 Source Monitor Monitor Monitor Position Semi-Fowlers Blood Pressure Location Left Arm History Since Last Visit- (Skip if this is Patient's initial visit) Have you changed medications since your No No No last visit? Any new allergies or adverse reactions No No No Had a fall/change in ADL's that may No No No increase risk of falls Signs or symptoms of abuse and/or No No No neglect since last visit Have you been in the hospital since your No No No last visit? Has dressing in place as prescribed Yes Yes Yes Has compression in place as prescribed Yes Yes Yes Has offloadiing in place as prescribed N/A N/A N/A Experienced any changes in pain level or No No No management Left Footwear Regular Shoe Right Footwear Regular Shoe Pain Scale: 0-10 Numeric Is Patient Pain Free? Yes Yes Yes - Nurse 1 - General Ulcer Measurement Start: 07/02/23 08:02 Freq: Status: Active Protocol: Activity Type Activity Date Activity User E-sign Co-sign Detail Recorded Client Recorded Date Recorded By Document 07/02/23 08:03 DL [id number] 07/02/23 08:10 DL Document 07/09/23 08:12 KW [id number] 07/09/23 08:30 KW Document 07/16/23 08:04 DL Desktop 07/16/23 08:11 DL 07/02/23 07/09/23 07/16/23 08:03 08:12 08:04 Wound Center Nurse 1 3-left dorsal foot -Current Size (cm) - Length 1.9 2.0 1.5 -Current Size (cm) - Width 1.6 1.5 1 -Current Size (cm) - Depth 0.3 0.4 0.3 -Total Square Cm 3.04 3.00 1.5 -Exudate Amt Medium Medium Medium -Exudate Type Serosanguineous Yellow/Green Serosanguineous -Wound Margin Distinct, Distinct, Distinct, Outline Outline Outline Attached Attached Attached -Granulation Amt Medium (34-66%) Small (1-33%) Medium (34-66%) -Granulation Quality [place] Red Red -Necrosis Amt Medium (34-66%) Medium (34-66%) Medium (34-66%) -Necrotic Tissue Type Adherent Slough Adherent Slough Adherent Slough -Structure Exposed N/A N/A -Texture (Beth-wound Skin Appearance) Scarring Assessed Scarring -Moisture (Beth-wound Skin Appearance) Maceration Assessed No Abnormality -Color (Beth-wound Skin Appearance) No Abnormality Assessed Hemosiderin Staining -Temperature (Beth-wound Skin No Abnormality No Abnormality No Abnormality Appearance) (Pt Warm) (Pt Warm) (Pt Warm) -Tenderness on Palpation (Beth-wound No No Skin Appearance) -Ulcer Cleansing Soap and Water Soap and Water Soap and Water -Foul Odor after Cleansing No No -Anesthetic Used 5% Lidocaine 5% Lidocaine 5% Lidocaine Gel Gel Gel Left Calf (cm) 37.5 36.5 Left Ankle (cm) 30 21.8 WC - Nurse 2 - General Ulcer CM Notes Start: 07/02/23 08:02 Freq: Status: Active Protocol: Activity Type Activity Date Activity User E-sign Co-sign Detail Recorded Client Recorded Date Recorded By Document 07/02/23 11:41 PL [id number] 07/02/23 11:50 PL Document 07/09/23 12:51 PL [id number] 07/09/23 12:54 PL 07/02/23 07/09/23 11:41 12:51 Wound Center Nurse 2 3-left dorsal foot -Time 08:39 08:40 -Correct Patient Yes Yes -Correct Side, Site, Position Yes Yes -Correct Procedure Yes Yes -Procedure Performed Yes Yes -Type of Procedure Debridement Debridement -Clinical Debridement Subcutaneous Subcutaneous -Tissue Removed Subcutaneous Subcutaneous -Post Debridement (cm) - Length 2.1 1.5 -Post Debridement (cm) - Width 1.4 1.7 -Post Debridement (cm) - Depth 0.2 0.4 -Total Square (Post) (cm) 2.94 2.55 -Area of Debridement (cm) - Length 2.1 1.5 -Area of Debridement (cm) - Width 1.4 1.7 -Total Square (Area) (cm) 2.94 2.55 -Tunneling No No -Undermining/Tunneling No No -Circular Undermining No No -Wound/Ulcer Outcome Not Healed Not Healed -Ulcer Cleansing Rinsed/ Rinsed/ Irrigated with Irrigated with Saline Saline -Foul Odor after Cleansing No No -Bioengineered Tissue Yes Yes -Type of Bioengineered Tissue Epifix Epifix 18mm Disc -Expiration Date 02/24/28 03/26/28 -Product Lot Number [id number] -Percent Used 100 100 -Bleeding Controlled with Pressure Pressure -Treatment Response Procedure Procedure Tolerated Well Tolerated Well -Debridement - Subq, 1st 20sq cm No No -Apply Skin Sub - 1st 25 sq cm - Feet 1 1 -Epifix (per sq cm) 4 -Epifix 18mm Disc 3 Pain Scale: 0-10 Numeric Is Patient Pain Free? Yes Yes WC - Nurse 3 - General Ulcer D/C NN Start: 07/02/23 08:02 Freq: Status: Active Protocol: Activity Type Activity Date Activity User E-sign Co-sign Detail Recorded Client Recorded Date Recorded By Document 07/02/23 08:54 KW [id number] 07/02/23 08:54 KW Document 07/09/23 09:03 DL [id number] 07/09/23 09:05 DL 07/02/23 07/09/23 08:54 09:03 Wound Care Center Nurse 3 3-left dorsal foot -Foul Odor after Cleansing No -Other Dressing Epi -Primary Dressing Covered/Secured with Dry Gauze & Dry Gauze & Roll Gauze, Roll Gauze, Secured with Secured with Tape Tape Left -Tubular Bandage Single Layer -Size of Tubigrip Used Size E -Size E ($) 1 Pain Scale: 0-10 Numeric Is Patient Pain Free? Yes Yes WC - Visit Discharge Discharge Condition Stable Stable Ambulatory Status Ambulatory Ambulatory Transportation Private Auto Private Auto Medication Reconcilliation completed & No provided to patient/care provider Clinical Summary of Care Provided Yes Assessment/Plan Assessment/Plan (1) Non-pressure chronic ulcer of other part of left foot with fat layer exposed: CODE(S): L97.522 - Non-pressure chronic ulcer of other part of left foot with fat layer exposed (2) Pain in left foot: CODE(S): M79.672 - Pain in left foot (3) Essential hypertension: CODE(S): I10 - Essential (primary) hypertension (4) Hyperlipidemia: CODE(S): E78.5 - Hyperlipidemia, unspecified QUALIFIERS: Hyperlipidemia type: unspecified Qualified Code(s): E78.5 - Hyperlipidemia, unspecified (5) Diabetes mellitus: CODE(S): E11.9 - Type 2 diabetes mellitus without complications QUALIFIERS: Diabetes mellitus complication detail: with foot ulcer Diabetes mellitus complication status: with skin complications 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 Wound has not progressed secondary to diabetic status. She has completed full course of Keflex. Ulceration underwent debridement as noted in the clinical panel above. Ulceration measures 1.3 cm x 1.0 cm x 0.2 cm. Ulceration does demonstrate localized rubor secondary to her burn, with improving rubor. No signs of infection. Following debridement healthy, bleeding granular tissue remained. Epifix graft #6 applied to the wound base and dressed with Adaptic touch and anchored with Steri-Strips, dressed with dry sterile dressing. She is to changethe outer dressing as needed. She was instructed to not get the dressings wet. Ulcerative site demonstrates improvement versus previous visit. She was approved for advanced wound care product, epi fix. We will continue application. Last known A1c performed at [facility] 06/18/2022 was 6.1%. Discussed proper diabetic diet to ensure tight glycemic control. Discussed she is not to be barefoot given her diabetic status indoors or outdoors. Shoe gear was encouraged to be worn at all times. Discussed that socks count is barefoot. Discussed adequate protein intake to aid in wound healing. She may take Bonifacio supplementation to aid in wound healing. The following work up and care recommendations were made: Dressing: EpiFix, Adaptic touch, Steri-Strips, dry sterile dressing. Change outer dressings as needed. Wash: Do not get wet Tissue growth optimization: EpiFix Offload: Ensure shoe gear does not rub on the wound site Vascular: DP and PT pulses weakly palpable however triphasic on Doppler. Adequate capillary fill time to digits. Edema: None Infection: No signs of infection Pain: May take [id number] Tylenol for discomfort Host factors: DM type II, obesity, HTN, HLD, patient education on barefoot status encouraged shoe gear to be worn. I answered all the patient's questions. To return to the wound healing center in 1 week or call sooner if the patient has any questions or concerns. 07/16/23901 <Electronically signed by Naeem Myers DPM> Cosigner Signature (if applicable): CC: ~ Signed [facility] Work Phone: 1(855) 385-264109-19-2023 Miscellaneous Notes* Telephone Encounter - Liza Santana LPN - 07/14/2023 10:32 AM EDT Patient has been identified by name and [...] Please advise. Thank you. Liza Santana LPN * Telephone Encounter - Brooke Cooper - 07/13/2023 5:04 PM EDT Patient has been identified by name and [...] and advise. Brooke Cooper documented [facility] [place] Progress note Author Naeem Myers [facility] July 09, 2023 9:09am Note Date/Time July 09, 2023 8:22am [facility] [address] [place] [id number] Progress Note - Wound Care 07/09/23 0821 MR#: [id number] Acct: [id number] Name: KEISHA RED Rep #:[id number] : 1945 78 From: Naeem barry DPM PCP: Dr. Joon Lopez MD Status:RE G RCR Location: History of Present Illness Date of Service: 07/09/23 Chief Complaint: Nonhealing right leg ulcer. History of Wound: Ms. Red is a 78-year-old with PMHx of DM type II, A-fib, HLD, HTN, RAMESH, and obesity. She states roughly 4 weeks ago she dropped a rotisserie chicken and mashed potatoes onto the top of her left foot which resulted in significant burn to the dorsal aspect of the left foot with accompanying localized rubor. She had seen her PCP who placed her on a course of Keflex and she has finished this antibiotic to completion. She was referred to the wound care center for continued care secondary to nonhealing eschar covering the wound to the dorsal foot at the base of the third and fourth digits. Patient does state that the wound is tender to the touch. She denies any N/V/F/chills. Denies any further complaints. Subjective Subjective Patient is a 78-year-old female who follows to the wound care center with ulceration to the dorsal aspect of the left foot. She states she has been changing the outer dressings daily with the assistance of her granddaughter. Daughter accompanies her today and states she is wound is continuing to improve. She denies constitutional symptoms. Denies further complaints. Objective Data Objective Data Vital Signs: Vital Signs Temp Pulse Resp BP 97.4 F L 92 20 H 141/73 H 07/02/23 08:03 07/02/23 08:03 07/02/23 08:03 07/02/23 08:03 Weight: 87.997 kg Body Mass Index (BMI) 29.5 Physical Exam Const alert, oriented x3 and no apparent distress General Appearance: cooperative HEENT normocephalic Eyes General Eye: normal appearance of both eyes Neck General: normal visual inspection Lymph Lymphatic: no lymphadenopathy noted and no lymphedema noted Resp normal respiratory effort Cardio regular rate and regular rhythm Extremity normal capillary refill, no joint enlargement, no calf tenderness and no pedal edema Extremity Narrative: DP and PT pulses weakly palpable. Capillary fill time is less than 4 seconds tothe digits. On Doppler DP and PT are triphasic. Dermatological: There is a wound noted to the dorsal aspect of the left foot at the base of the third and fourth digits with yellow fibrotic tissue in the woundbed with localized rubor secondary to burn from hot food. Rubor resolved. No erythema, no purulent drainage, no malodor, no palpable fluctuance/bogginess, novisible abscess, no lymphangitic streaking. Surrounding skin is thin. Musculoskeletal: Muscle strength 5 of 5 age-appropriate. There is decreased range of motion of the ankle joint in dorsiflexion with the knee extended without pain or crepitus. Pain to palpation about ulcerative site. Skin no rashes or lesions noted, skin turgor normal and no jaundice Neuro moves all extremities Debridement Note Debridement Note Wound debrided: Left dorsal foot Laterality: Left Wound Grade/Stage: Saeed stage I Type of Debridement: Excisional debridement Anesthesia Used: 5% Lidocaine Gel Depth: Down to and including healthy tissue and in the subcutaneous layer Percentage of wound debrided: 100 Instrument Used: 5mm curette Tissue Removed: Fibrous, devitalized subcutaneous, biofilm, slough Severity: Fat Layer Exposed Amount of bleeding with debridement: Mild Bleeding Controlled with: Compression and gauze Patient tolerated procedure: Patient tolerated procedure well Post-Debridement Measurements and Additional Note: Post-Debridement Measurements/Treatment WC - Nurse 1 - General Ulcer Assessment Start: 07/02/23 08:02 Freq: Status: Active Protocol: WC.LOWEXT Activity Type Activity Date Activity User E-sign Co-sign Detail Recorded Client Recorded Date Recorded By Document 07/02/23 08:03 DL [id number] 07/02/23 08:10 DL 07/02/23 08:03 WC - Today's Visit Information 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 service 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 ) Arrival Mode Ambulatory Transfer Assistance None Patient Identification Verified (Name & Yes ) Patient Requires Transmission-Based No Precautions Height and Weight Body Mass Index (BMI) 29.5 BMI Classification Overweight Vital Signs Temperature (97.8 F-99.1 F) 97.4 F L Temperature Source Temporal Pulse Rate (60-100) 92 Pulse Location Monitor Respiratory Rate (12-18) 20 H Respiratory rate source Observation Blood Pressure (90/60-120/80) 141/73 H Blood Pressure Mean (mm Hg) 95 Source Monitor History Since Last Visit- (Skip if this is Patient's initial visit) Have you changed medications since your No last visit? Any new allergies or adverse reactions No Had a fall/change in ADL's that may No increase risk of falls Signs or symptoms of abuse and/or No neglect since last visit Have you been in the hospital since your No last visit? Has dressing in place as prescribed Yes Has compression in place as prescribed Yes Has offloadiing in place as prescribed N/A Experienced any changes in pain level or No management Pain Scale: 0-10 Numeric Is Patient Pain Free? Yes WC - Nurse 1 - General Ulcer Measurement Start: 07/02/23 08:02 Freq: Status: Active Protocol: Activity Type Activity Date Activity User E-sign Co-sign Detail Recorded Client Recorded Date Recorded By Document 07/02/23 08:03 DL [id number] 07/02/23 08:10 DL 07/02/23 08:03 Wound Center Nurse 1 3-left dorsal foot -Current Size (cm) - Length 1.9 -Current Size (cm) - Width 1.6 -Current Size (cm) - Depth 0.3 -Total Square Cm 3.04 -Exudate Amt Medium -Exudate Type Serosanguineous -Wound Margin Distinct, Outline Attached -Granulation Amt Medium (34-66%) -Granulation Quality [place] -Necrosis Amt Medium (34-66%) -Necrotic Tissue Type Adherent Slough -Structure Exposed N/A -Texture (Beth-wound Skin Appearance) Scarring -Moisture (Beth-wound Skin Appearance) Maceration -Color (Beth-wound Skin Appearance) No Abnormality -Temperature (Beth-wound Skin No Abnormality Appearance) (Pt Warm) -Tenderness on Palpation (Beth-wound No Skin Appearance) -Ulcer Cleansing Soap and Water -Foul Odor after Cleansing No -Anesthetic Used 5% Lidocaine Gel WC - Nurse 2 - General Ulcer CM Notes Start: 07/02/23 08:02 Freq: Status: Active Protocol: Activity Type Activity Date Activity User E-sign Co-sign Detail Recorded Client Recorded Date Recorded By Document 07/02/23 11:41 PL [id number] 07/02/23 11:50 PL 07/02/23 11:41 Wound Center Nurse 2 -Time 08:39 -Correct Patient Yes -Correct Side, Site, Position Yes -Correct Procedure Yes -Procedure Performed Yes -Type of Procedure Debridement -Clinical Debridement Subcutaneous -Tissue Removed Subcutaneous -Post Debridement (cm) - Length 2.1 -Post Debridement (cm) - Width 1.4 -Post Debridement (cm) - Depth 0.2 -Total Square (Post) (cm) 2.94 -Area of Debridement (cm) - Length 2.1 -Area of Debridement (cm) - Width 1.4 -Total Square (Area) (cm) 2.94 -Tunneling No -Undermining/Tunneling No -Circular Undermining No -Wound/Ulcer Outcome Not Healed -Ulcer Cleansing Rinsed/ Irrigated with Saline -Foul Odor after Cleansing No -Bioengineered Tissue Yes -Type of Bioengineered Tissue Epifix -Expiration Date 02/24/28 -Product Lot Number [id number] -Percent Used 100 -Bleeding Controlled with Pressure -Treatment Response Procedure Tolerated Well -Debridement - Subq, 1st 20sq cm No -Apply Skin Sub - 1st 25 sq cm - Feet 1 -Epifix (per sq cm) 4 Pain Scale: 0-10 Numeric Is Patient Pain Free? Yes WC - Nurse 3 - General Ulcer D/C NN Start: 07/02/23 08:02 Freq: Status: Active Protocol: Activity Type Activity Date Activity User E-sign Co-sign Detail Recorded Client Recorded Date Recorded By Document 07/02/23 08:54 [id number] 07/02/23 08:54 07/02/23 08:54 Wound Care Center Nurse 3 3-left dorsal foot -Primary Dressing Covered/Secured with Dry Gauze & Roll Gauze, Secured with Tape Pain Scale: 0-10 Numeric Is Patient Pain Free? Yes WC - Visit Discharge Discharge Condition Stable Ambulatory Status Ambulatory Transportation Private Auto Medication Reconcilliation completed & No provided to patient/care provider Clinical Summary of Care Provided Yes Assessment/Plan Assessment/Plan (1) Non-pressure chronic ulcer of other part of left foot with fat layer exposed: CODE(S): L97.522 - Non-pressure chronic ulcer of other part of left foot with fat layer exposed (2) Pain in left foot: CODE(S): M79.672 - Pain in left foot (3) Essential hypertension: CODE(S): I10 - Essential (primary) hypertension (4) Hyperlipidemia: CODE(S): E78.5 - Hyperlipidemia, unspecified QUALIFIERS: Hyperlipidemia type: unspecified Qualified Code(s): E78.5 - Hyperlipidemia, unspecified (5) Diabetes mellitus: CODE(S): E11.9 - Type 2 diabetes mellitus without complications QUALIFIERS: Diabetes mellitus complication detail: with foot ulcer Diabetes mellitus complication status: with skin complications 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 Wound has not progressed secondary to diabetic status. She has completed full course of Keflex. Ulceration underwent debridement as noted in the clinical panel above. Ulceration measures 1.5 cm x 1.7 cm x 0.2 cm. Ulceration does demonstrate localized rubor secondary to her burn, with improving rubor. No signs of infection. Following debridement healthy, bleeding granular tissue remained. Epifix graft #5 applied to the wound base and dressed with Adaptic touch and anchored with Steri-Strips, dressed with dry sterile dressing. She is to changethe outer dressing as needed. She was instructed to not get the dressings wet. Ulcerative site demonstrates improvement versus previous visit. She was approved for advanced wound care product, epi fix. We will continue application. Last known A1c performed at [facility] 06/18/2022 was 6.1%. Discussed proper diabetic diet to ensure tight glycemic control. Discussed she is not to be barefoot given her diabetic status indoors or outdoors. Shoe gear was encouraged to be worn at all times. Discussed that socks count is barefoot. Discussed adequate protein intake to aid in wound healing. She may take Bonifacio supplementation to aid in wound healing. The following work up and care recommendations were made: Dressing: EpiFix, Adaptic touch, Steri-Strips, dry sterile dressing. Change outer dressings as needed. Wash: Do not get wet Tissue growth optimization: EpiFix Offload: Ensure shoe gear does not rub on the wound site Vascular: DP and PT pulses weakly palpable however triphasic on Doppler. Adequate capillary fill time to digits. Edema: None Infection: No signs of infection Pain: May take irzs-cjh-kfhnwod Tylenol for discomfort Host factors: DM type II, obesity, HTN, HLD, patient education on barefoot status encouraged shoe gear to be worn. I answered all the patient's questions. To return to the wound healing center in 1 week or call sooner if the patient has any questions or concerns. 07/09/23 0909 <Electronically signed by Naeem Myers DPM> Cosigner Signature (if applicable): CC: ~ Signed [facility] Work Phone: 1(685) 856-528809-07-2023 Progress note Author Naeem Myers [facility] July 02, 2023 9:06am Note Date/Time July 02, 2023 9:06am [facility] [address] [place] [address] Progress Note - Wound Care 07/02/23 0900 MR#: [id number] Acct: [id number] Name: KEISHA RED Rep #:[id number] : 1945 78 From: Naeem barry DPM PCP: Dr. Joon Lopez MD Status:RE G RCR Location: History of Present Illness Date of Service: 07/02/23 Chief Complaint: Nonhealing right leg ulcer. History of Wound: Ms. Red is a 78-year-old with PMHx of DM type II, A-fib, HLD, HTN, RAMESH, and obesity. She states roughly 4 weeks ago she dropped a rotisserie chicken and mashed potatoes onto the top of her left foot which resulted in significant burn to the dorsal aspect of the left foot with accompanying localized rubor. She had seen her PCP who placed her on a course of Keflex and she has finished this antibiotic to completion. She was referred to the wound care center for continued care secondary to nonhealing eschar covering the wound to the dorsal foot at the base of the third and fourth digits. Patient does state that the wound is tender to the touch. She denies any N/V/F/chills. Denies any further complaints. Subjective Subjective Patient is a 78-year-old female who follows to the wound care center with ulceration to the dorsal aspect of the left foot. She states she has been changing the outer dressings daily with the assistance of her granddaughter. Daughter accompanies her today and states she is seeing continued improvement inthe wound. She denies constitutional symptoms. Denies further complaints. Objective Data Objective Data Vital Signs: Vital Signs Temp Pulse Resp BP 97.4 F L 92 20 H 141/73 H 07/02/23 08:03 07/02/23 08:03 07/02/23 08:03 07/02/23 08:03 Weight: 87.997 kg Body Mass Index (BMI) 29.5 Physical Exam Const alert, oriented x3 and no apparent distress General Appearance: cooperative HEENT normocephalic Eyes General Eye: normal appearance of both eyes Neck General: normal visual inspection Lymph Lymphatic: no lymphadenopathy noted and no lymphedema noted Resp normal respiratory effort Cardio regular rate and regular rhythm Extremity normal capillary refill, no joint enlargement, no calf tenderness and no pedal edema Extremity Narrative: DP and PT pulses weakly palpable. Capillary fill time is less than 4 seconds tothe digits. On Doppler DP and PT are triphasic. Dermatological: There is a wound noted to the dorsal aspect of the left foot at the base of the third and fourth digits with yellow fibrotic tissue in the woundbed with localized rubor secondary to burn from hot food. Rubor resolved. No erythema, no purulent drainage, no malodor, no palpable fluctuance/bogginess, novisible abscess, no lymphangitic streaking. Surrounding skin is thin. Musculoskeletal: Muscle strength 5 of 5 age-appropriate. There is decreased range of motion of the ankle joint in dorsiflexion with the knee extended without pain or crepitus. Pain to palpation about ulcerative site. Skin no rashes or lesions noted, skin turgor normal and no jaundice Neuro moves all extremities Debridement Note Debridement Note Wound debrided: Left foot Laterality: Left Wound Grade/Stage: Saeed stage I Type of Debridement: Excisional debridement Anesthesia Used: 5% Lidocaine Gel Depth: Down to and including healthy tissue and in the subcutaneous layer Percentage of wound debrided: 100 Instrument Used: 5mm curette Tissue Removed: Fibrous, devitalized subcutaneous, biofilm, slough Severity: Fat Layer Exposed Amount of bleeding with debridement: Mild Bleeding Controlled with: Compression and gauze Patient tolerated procedure: Patient tolerated procedure well Post-Debridement Measurements and Additional Note: Post-Debridement Measurements/Treatment - Nurse 1 - General Ulcer Assessment Start: 07/02/23 08:02 Freq: Status: Active Protocol: AMEE Activity Type Activity Date Activity User E-sign Co-sign Detail Recorded Client Recorded Date Recorded By Document 07/02/23 08:03 JOEY [id number] 07/02/23 08:10 DL 07/02/23 08:03 JEANETTE - Today's Visit Information 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 service 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 ) Arrival Mode Ambulatory Transfer Assistance None Patient Identification Verified (Name & Yes ) Patient Requires Transmission-Based No Precautions Height and Weight Body Mass Index (BMI) 29.5 BMI Classification Overweight Vital Signs Temperature (97.8 F-99.1 F) 97.4 F L Temperature Source Temporal Pulse Rate (60-100) 92 Pulse Location Monitor Respiratory Rate (12-18) 20 H Respiratory rate source Observation Blood Pressure (90/60-120/80) 141/73 H Blood Pressure Mean (mm Hg) 95 Source Monitor History Since Last Visit- (Skip if this is Patient's initial visit) Have you changed medications since your No last visit? Any new allergies or adverse reactions No Had a fall/change in ADL's that may No increase risk of falls Signs or symptoms of abuse and/or No neglect since last visit Have you been in the hospital since your No last visit? Has dressing in place as prescribed Yes Has compression in place as prescribed Yes Has offloadiing in place as prescribed N/A Experienced any changes in pain level or No management Pain Scale: 0-10 Numeric Is Patient Pain Free? Yes WC - Nurse 1 - General Ulcer Measurement Start: 07/02/23 08:02 Freq: Status: Active Protocol: Activity Type Activity Date Activity User E-sign Co-sign Detail Recorded Client Recorded Date Recorded By Document 07/02/23 08:03 JOEY [id number] 07/02/23 08:10 DL 07/02/23 08:03 Wound Center Nurse 1 3-left dorsal foot -Current Size (cm) - Length 1.9 -Current Size (cm) - Width 1.6 -Current Size (cm) - Depth 0.3 -Total Square Cm 3.04 -Exudate Amt Medium -Exudate Type Serosanguineous -Wound Margin Distinct, Outline Attached -Granulation Amt Medium (34-66%) -Granulation Quality [place] -Necrosis Amt Medium (34-66%) -Necrotic Tissue Type Adherent Slough -Structure Exposed N/A -Texture (Beth-wound Skin Appearance) Scarring -Moisture (Beth-wound Skin Appearance) Maceration -Color (Beth-wound Skin Appearance) No Abnormality -Temperature (Beth-wound Skin No Abnormality Appearance) (Pt Warm) -Tenderness on Palpation (Beth-wound No Skin Appearance) -Ulcer Cleansing Soap and Water -Foul Odor after Cleansing No -Anesthetic Used 5% Lidocaine Gel WC - Nurse 3 - General Ulcer D/C NN Start: 07/02/23 08:02 Freq: Status: Active Protocol: Activity Type Activity Date Activity User E-sign Co-sign Detail Recorded Client Recorded Date Recorded By Document 07/02/23 08:54 ANDERS [id number] 07/02/23 08:54 ANDERS 07/02/23 08:54 Wound Care Center Nurse 3 -Primary Dressing Covered/Secured with Dry Gauze & Roll Gauze, Secured with Tape Pain Scale: 0-10 Numeric Is Patient Pain Free? Yes WC - Visit Discharge Discharge Condition Stable Ambulatory Status Ambulatory Transportation Private Auto Medication Reconcilliation completed & No provided to patient/care provider Clinical Summary of Care Provided Yes Assessment/Plan Assessment/Plan (1) Non-pressure chronic ulcer of other part of left foot with fat layer exposed: CODE(S): L97.522 - Non-pressure chronic ulcer of other part of left foot with fat layer exposed (2) Pain in left foot: CODE(S): M79.672 - Pain in left foot (3) Essential hypertension: CODE(S): I10 - Essential (primary) hypertension (4) Hyperlipidemia: CODE(S): E78.5 - Hyperlipidemia, unspecified QUALIFIERS: Hyperlipidemia type: unspecified Qualified Code(s): E78.5 - Hyperlipidemia, unspecified (5) Diabetes mellitus: CODE(S): E11.9 - Type 2 diabetes mellitus without complications QUALIFIERS: Diabetes mellitus type: type 2 Diabetes mellitus retirement insulin use: unspecified long-term insulin use status Diabetes mellitus complication status: with skin complications Diabetes mellitus complication detail: with foot ulcer Qualified Code(s): E11.621 - Type 2 diabetes mellitus with foot ulcer; L97.509 - Non- pressure chronic ulcer of other part of unspecified foot with unspecified severity PLAN: Plan Patient seen and evaluated 9 weeks ago patient dropped hot chicken and mashed potatoes on the top of her left foot resulting in a burn to the dorsal foot with skin eschar secondary to thin skin. Wound has not progressed secondary to diabetic status. She has completed full course of Keflex. Ulceration underwent debridement as noted in the clinical panel above. Ulceration measures 2.1 cm x 1.4 cm x 0.2 cm. Ulceration does demonstrate localized rubor secondary to her burn, with improving rubor. No signs of infection. Following debridement healthy, bleeding granular tissue remained. Epifix graft #4 applied to the wound base and dressed with Adaptic touch and anchored with Steri-Strips, dressed with dry sterile dressing. She is to changethe outer dressing as needed. She was instructed to not get the dressings wet. Ulcerative site demonstrates improvement versus previous visit. She was approved for advanced wound care product, epi fix. We will continue application. Last known A1c performed at [facility] 06/18/2022 was 6.1%. Discussed proper diabetic diet to ensure tight glycemic control. Discussed she is not to be barefoot given her diabetic status indoors or outdoors. Shoe gear was encouraged to be worn at all times. Discussed that socks count is barefoot. Discussed adequate protein intake to aid in wound healing. She may take Bonifacio supplementation to aid in wound healing. The following work up and care recommendations were made: Dressing: EpiFix, Adaptic touch, Steri-Strips, dry sterile dressing. Change outer dressings as needed. Wash: Do not get wet Tissue growth optimization: EpiFix Offload: Ensure shoe gear does not rub on the wound site Vascular: DP and PT pulses weakly palpable however triphasic on Doppler. Adequate capillary fill time to digits. Edema: None Infection: No signs of infection Pain: May take uhgl-eiz-mrdxtvi Tylenol for discomfort Host factors: DM type II, obesity, HTN, HLD, patient education on barefoot status encouraged shoe gear to be worn. I answered all the patient's questions. To return to the wound healing center in 1 week or call sooner if the patient has any questions or concerns. 07/02/23905 <Electronically signed by Naeem Myers DPM> Cosigner Signature (if applicable): CC: ~ Signed [facility] Work Phone: 1(736) 316-282708-31-2023 Progress note Author Naeem Myers [facility] June 25, 2023 8:57am Note Date/Time June 25, 2023 8: 28am [facility] [address] [place] [address] Progress Note - Wound Care 06/25/2327 MR#: [id number] Acct: [id number] Name: KEISHA RED Rep #:[id number] : 1945 78 From: Naeem barry DPM PCP: Dr. Joon Lopez MD Status:RE G RCR Location: History of Present Illness Date of Service: 06/25/23 Chief Complaint: Nonhealing right leg ulcer. History of Wound: Ms. Red is a 78-year-old with PMHx of DM type II, A-fib, HLD, HTN, RAMESH, and obesity. She states roughly 4 weeks ago she dropped a rotisserie chicken and mashed potatoes onto the top of her left foot which resulted in significant burn to the dorsal aspect of the left foot with accompanying localized rubor. She had seen her PCP who placed her on a course of Keflex and she has finished this antibiotic to completion. She was referred to the wound care center for continued care secondary to nonhealing eschar covering the wound to the dorsal foot at the base of the third and fourth digits. Patient does state that the wound is tender to the touch. She denies any N/V/F/chills. Denies any further complaints. Subjective Subjective Patient is a 78-year-old female who follows to the wound care center with ulceration to the dorsal aspect of the left foot. She states she has been changing the outer dressings daily with the assistance of her granddaughter. Daughter accompanies her today and states she is seeing improvement in the wound. She denies constitutional symptoms. Denies further complaints. Objective Data Objective Data Vital Signs: Vital Signs Temp Pulse Resp BP O2 Del Method 97.4 F L 90 20 H 147/94 H Room Air 06/25/23 08:04 06/25/23 08:04 06/25/23 08:04 06/25/23 08:04 06/11/23 08:05 Oxygen Delivery Method Room Air Weight: 87.997 kg Body Mass Index (BMI) 29.5 Physical Exam Const alert, oriented x3, no apparent distress and well nourished General Appearance: cooperative HEENT normocephalic Eyes General Eye: normal appearance of both eyes Neck General: normal visual inspection Lymph Lymphatic: no lymphadenopathy noted and no lymphedema noted Resp normal respiratory effort Cardio regular rate and regular rhythm Extremity normal capillary refill, no joint enlargement, no calf tenderness and no pedal edema Extremity Narrative: DP and PT pulses weakly palpable. Capillary fill time is less than 4 seconds tothe digits. On Doppler DP and PT are triphasic. Dermatological: There is a wound noted to the dorsal aspect of the left foot at the base of the third and fourth digits with yellow fibrotic tissue in the woundbed with localized rubor secondary to burn from hot food. Rubor resolved. No erythema, no purulent drainage, no malodor, no palpable fluctuance/bogginess, novisible abscess, no lymphangitic streaking. Surrounding skin is thin. Musculoskeletal: Muscle strength 5 of 5 age-appropriate. There is decreased range of motion of the ankle joint in dorsiflexion with the knee extended without pain or crepitus. Pain to palpation about ulcerative site. Skin no rashes or lesions noted, skin turgor normal and no jaundice Neuro moves all extremities Debridement Note Debridement Note Wound debrided: Dorsal left foot Laterality: Left Wound Grade/Stage: Saeed stage I Type of Debridement: Excisional debridement Anesthesia Used: 5% Lidocaine Gel Depth: Down to and including healthy tissue and in the subcutaneous layer Percentage of wound debrided: 100 Instrument Used: 5mm curette Tissue Removed: Fibrous, devitalized subcutaneous, biofilm, slough Severity: Fat Layer Exposed Amount of bleeding with debridement: Mild Bleeding Controlled with: Compression and gauze Patient tolerated procedure: Patient tolerated procedure well Post-Debridement Measurements and Additional Note: Post-Debridement Measurements/Treatment - Nurse 1 - General Ulcer Assessment Start: 05/28/23 07:57 Freq: Status: Active Protocol: [email or web address] Activity Type Activity Date Activity User E-sign Co-sign Detail Recorded Client Recorded Date Recorded By Document 05/28/23 07:57 [id number] 05/28/23 08:13 Document 06/04/23 08:11 [id number] 06/04/23 08:13 Document 06/11/23 08:05 [facility] [id number] 06/11/23 08:13 BM Document 06/18/23 08:21 DL [id number] 06/18/23 08:28 DL Document 06/25/23 08:04 DL [id number] 06/25/23 08:11 DL 05/28/23 06/04/23 06/11/23 07:57 08:11 08:05 WC - Today's Visit Information Type of service Follow-up Visit Follow-up Visit 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 (Physician/RADAR ENGINEERING TEACHER (Physician/RADAR ENGINEERING TEACHER ) ) ) Arrival Mode Ambulatory Ambulatory Ambulatory Transfer Assistance Manual None Patient Identification Verified (Name & Yes Yes Yes ) Patient Requires Transmission-Based Yes No No Precautions Safety Precautions Fall Prevention Finger Stick Blood Sugar(mg/dl) (if 130 227 indicated): Blood Sugar Stated by Stated by Patient Patient Height and Weight Height 5 ft 8 in Weight 87.997 kg Weight in Pounds 194.0 lbs Weight Measurement Method Estimated by Patient Body Mass Index (BMI) 29.5 29.5 29.5 BMI Classification Overweight Overweight Overweight BSA - Deidre 2.02 Vital Signs Temperature (97.8 F-99.1 F) 95.6 F L 96.0 F L 96.8 F L Temperature Source Temporal Temporal Temporal Pulse Rate (60-100) 96 94 89 Pulse Location Monitor Monitor Monitor Respiratory Rate (12-18) 16 16 16 Respiratory rate source Observation Observation Observation Oxygen Delivery Method Room Air Blood Pressure (90/60-120/80) 134/86 H 145/63 H 138/82 H Blood Pressure Mean (mm Hg) 102 90 100 Source Monitor Monitor Monitor Position Semi-Fowlers Sitting Sitting Blood Pressure Location Left Arm Left Arm Left Arm History Since Last Visit- (Skip if this is Patient's initial visit) Have you changed medications since your No No last visit? Any new allergies or adverse reactions No No Had a fall/change in ADL's that may No No increase risk of falls Signs or symptoms of abuse and/or No No neglect since last visit Have you been in the hospital since your No No last visit? Has dressing in place as prescribed Yes Yes Has compression in place as prescribed N/A N/A Has offloadiing in place as prescribed No N/A Experienced any changes in pain level or No No management Left Footwear Regular Shoe Regular Shoe Regular Shoe Right Footwear Regular Shoe Regular Shoe Regular Shoe Pain Scale: 0-10 Numeric Is Patient Pain Free? Yes Yes Yes Lower Extremity Assessment/ Foot Assessment/ Toe Nail Assessment Right -Posterior Tibial Palpable Yes -Posterior Tibial Doppler Multiphasic -Dorsalis Pedis Palpable Yes -Dorsalis Pedis Doppler Multiphasic -Hair Growth on Legs No -Hair Growth on Toes No -Temperature of Extremity Warm -Capillary Refill Less than 3 Seconds Left -Posterior Tibial Palpable Yes -Posterior Tibial Doppler Multiphasic -Dorsalis Pedis Palpable Yes -Dorsalis Pedis Doppler Multiphasic -Hair Growth on Legs No -Hair Growth on Toes No -Temperature of Extremity Warm -Capillary Refill Less than 3 Seconds -Dependent Rubor No -Blanched when Elevated No Communication Assessment Primary Language Belizean Preferred language Belizean Patient Transport Orderly Required No Able to Read Yes Able to Write Yes Communication Tools None Right Hearing Abillity Normal Left Hearing Abillity Normal Visual Assistive Devices Glasses Teaching Assessment Preferences Verbal,Written, Audio/Visual, Demonstration Barriers to Learning None Readiness To Learn Good Willingness to Engage in Self Management Med Activies Readiness to Engage in Self Management Med Activities Anxiety Level Calm Cooperation Cooperative Perception Coherent Interest in Health Problem Asks Questions Education Importance Acknowledges Need Does Patient Smoke tobacco or other No substances Smoking Status Never smoker Is Patient Diabetic Yes Functional Assessment Recent Decline in Ability to Perform Denies Any Declines Culture/Hinduism/Alternative Financing Specialist Cultural/Hinduism Needs that may affect No Treatment Plan Would you allow our hospital solid center winder to No meet you for the purpose of spiritual/ emotional support? Alternative Financing Specialist to contact place of confucianist No Teaching: Wound Center *Welcome to the Wound Center -Person Taught Patient,Family -Teaching Method Discussion, Demonstration -Response to teaching Return demonstration, Verbalize understanding 06/18/23 06/25/23 08:21 08:04 WC - Today's Visit Information Type of service Follow-up Visit 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 (Physician/RADAR ENGINEERING TEACHER ) ) Arrival Mode Ambulatory Ambulatory Transfer Assistance None None Patient Identification Verified (Name & Yes Yes ) Patient Requires Transmission-Based No Precautions Safety Precautions Finger Stick Blood Sugar(mg/dl) (if indicated): Blood Sugar Height and Weight Height Weight Weight in Pounds Weight Measurement Method Body Mass Index (BMI) 29.5 29.5 BMI Classification Overweight Overweight BSA - Deidre Vital Signs Temperature (97.8 F-99.1 F) 96.6 F L 97.4 F L Temperature Source Temporal Temporal Pulse Rate (60-100) 94 90 Pulse Location Monitor Monitor Respiratory Rate (12-18) 18 20 H Respiratory rate source Observation Observation Oxygen Delivery Method Blood Pressure (90/60-120/80) 146/88 H 147/94 H Blood Pressure Mean (mm Hg) 107 111 Source Monitor Monitor Position Blood Pressure Location History Since Last Visit- (Skip if this is Patient's initial visit) Have you changed medications since your No No last visit? Any new allergies or adverse reactions No No Had a fall/change in ADL's that may No No increase risk of falls Signs or symptoms of abuse and/or No No neglect since last visit Have you been in the hospital since your No No last visit? Has dressing in place as prescribed Yes Yes Has compression in place as prescribed N/A N/A Has offloadiing in place as prescribed Yes No Experienced any changes in pain level or No No management Left Footwear Right Footwear Pain Scale: 0-10 Numeric Is Patient Pain Free? Yes Yes Lower Extremity Assessment/ Foot Assessment/ Toe Nail Assessment Right -Posterior Tibial Palpable -Posterior Tibial Doppler -Dorsalis Pedis Palpable -Dorsalis Pedis Doppler -Hair Growth on Legs -Hair Growth on Toes -Temperature of Extremity -Capillary Refill Left -Posterior Tibial Palpable -Posterior Tibial Doppler -Dorsalis Pedis Palpable -Dorsalis Pedis Doppler -Hair Growth on Legs -Hair Growth on Toes -Temperature of Extremity -Capillary Refill -Dependent Rubor -Blanched when Elevated Communication Assessment Primary Language Preferred speech and language clinician Required Able to Read Able to Write Communication Tools Right Hearing Abillity Left Hearing Abillity Visual Assistive Devices Teaching Assessment Preferences Barriers to Learning Readiness To Learn Willingness to Engage in Self Management Activies Readiness to Engage in Self Management Activities Anxiety Level Cooperation Perception Interest in Health Problem Education Importance Does Patient Smoke tobacco or other substances Smoking Status Is Patient Diabetic Functional Assessment Recent Decline in Ability to Perform Culture/Hinduism/Alternative Financing Specialist Cultural/Hinduism Needs that may affect Treatment Plan Would you allow our hospital solid center winder to meet you for the purpose of spiritual/ emotional support? Alternative Financing Specialist to contact place of confucianist Teaching: Wound Center *Welcome to the Wound Center -Person Taught -Teaching Method -Response to teaching WC - Nurse 1 - General Ulcer Measurement Start: 05/28/23 07:57 Freq: Status: Active Protocol: Activity Type Activity Date Activity User E-sign Co-sign Detail Recorded Client Recorded Date Recorded By Document 05/28/23 07:57 MARYURI [id number] 05/28/23 08:13 JF Document 06/04/23 08:11 MARYURI [id number] 06/04/23 08:13 JF Document 06/11/23 08:05 [facility] [id number] 06/11/23 08:13 BMF Document 06/18/23 08:21 DL [id number] 06/18/23 08:28 DL Document 06/25/23 08:04 DL [id number] 06/25/23 08:11 DL 05/28/23 06/04/23 06/11/23 07:57 08:11 08:05 Wound Center Nurse 1 3-left dorsal foot -Combined with other wound No No No -Current Size (cm) - Length 2.0 2.0 2.1 -Current Size (cm) - Width 2.1 2.0 1.8 -Current Size (cm) - Depth 0.2 0.2 0.4 -Total Square Cm 4.20 4.00 3.78 -Photo Taken Yes No No -Epithelialization None Present Small 1-33% None Present -Tunneling No No No -Undermining/Tunneling No No No -Circular Undermining No No No -Classification - Thickness Unclassifiable (Eschar Covered ) -Exudate Amt Small Small Medium -Exudate Type Serosanguineous Serosanguineous Serosanguineous -Wound Margin Flat & Intact Flat & Intact Distinct, Outline Attached -Granulation Amt None Present (0 Small (1-33%) Medium (34-66%) %) -Granulation Quality [place] -Slough/Fibrin Yes Yes Yes -Necrosis Amt Large (67-100%) Large (67-100%) Medium (34-66%) -Necrotic Tissue Type Adherent Slough Adherent Slough Adherent Slough -Structure Exposed N/A N/A -Texture (Beth-wound Skin Appearance) Assessed, Assessed, Assessed, Localized Edema Localized Edema Scarring -Moisture (Beth-wound Skin Appearance) Assessed,Dry/ Assessed,Dry/ Assessed Scaly Scaly -Color (Beth-wound Skin Appearance) Assessed Assessed Assessed -Temperature (Beth-wound Skin No Abnormality No Abnormality No Abnormality Appearance) (Pt Warm) (Pt Warm) (Pt Warm) -Tenderness on Palpation (Beth-wound No No No Skin Appearance) -Ulcer Cleansing Rinsed/ Rinsed/ Soap and Water Irrigated with Irrigated with Saline Saline -Foul Odor after Cleansing No No -Anesthetic Used 5% Lidocaine 5% Lidocaine 5% Lidocaine Gel Gel Gel Lower Limb Edema Present NA NA Yes Left Calf (cm) 37.6 Left Ankle (cm) 22.8 06/18/23 06/25/23 08:21 08:04 Wound Center Nurse 1 3-left dorsal foot -Combined with other wound -Current Size (cm) - Length 2 2.1 -Current Size (cm) - Width 1.8 1.8 -Current Size (cm) - Depth 0.5 0.3 -Total Square Cm 3.6 3.78 -Photo Taken -Epithelialization -Tunneling -Undermining/Tunneling -Circular Undermining -Classification - Thickness -Exudate Amt Medium Medium -Exudate Type Serosanguineous Serosanguineous -Wound Margin Distinct, Distinct, Outline Outline Attached Attached -Granulation Amt Medium (34-66%) Medium (34-66%) -Granulation Quality Red Red -Slough/Fibrin -Necrosis Amt Medium (34-66%) Medium (34-66%) -Necrotic Tissue Type Adherent Slough Adherent Slough -Structure Exposed N/A -Texture (Beth-wound Skin Appearance) Scarring Scarring -Moisture (Beth-wound Skin Appearance) No Abnormality Maceration -Color (Beth-wound Skin Appearance) Erythema No Abnormality -Temperature (Beth-wound Skin No Abnormality No Abnormality Appearance) (Pt Warm) (Pt Warm) -Tenderness on Palpation (Beth-wound No No Skin Appearance) -Ulcer Cleansing Soap and Water Soap and Water -Foul Odor after Cleansing No No -Anesthetic Used 5% Lidocaine 5% Lidocaine Gel Gel Lower Limb Edema Present Left Calf (cm) Left Ankle (cm) WC - Nurse 2 - General Ulcer CM Notes Start: 05/28/23 07:57 Freq: Status: Active Protocol: Activity Type Activity Date Activity User E-sign Co-sign Detail Recorded Client Recorded Date Recorded By Document 05/28/23 14:14 PL [id number] 05/28/23 14:15 PL Document 06/04/23 12:12 PL [id number] 06/04/23 12:12 PL Document 06/11/23 12:39 PL [id number] 06/11/23 12:42 PL Document 06/18/23 09:21 PL [id number] 06/18/23 09:24 PL 05/28/23 06/04/23 06/11/23 14:14 12:12 12:39 Wound Center Nurse 2 3-left dorsal foot -Time 08:37 08:39 08:39 -Correct Patient Yes Yes Yes -Correct Side, Site, Position Yes Yes Yes -Correct Procedure Yes Yes Yes -Procedure Performed Yes Yes Yes -Type of Procedure Debridement Debridement Debridement -Clinical Debridement Subcutaneous Subcutaneous Subcutaneous -Tissue Removed Subcutaneous Subcutaneous Subcutaneous -Post Debridement (cm) - Length 2.1 2.2 2.1 -Post Debridement (cm) - Width 2.0 2.0 1.8 -Post Debridement (cm) - Depth 0.2 0.2 0.4 -Total Square (Post) (cm) 4.20 4.40 3.78 -Area of Debridement (cm) - Length 2.1 2.2 2.1 -Area of Debridement (cm) - Width 2.0 2.0 1.8 -Total Square (Area) (cm) 4.20 4.40 3.78 -Tunneling No No No -Undermining/Tunneling No No No -Circular Undermining No No No -Wound/Ulcer Outcome Not Healed Not Healed Not Healed -Ulcer Cleansing Rinsed/ Rinsed/ Rinsed/ Irrigated with Irrigated with Irrigated with Saline Saline Saline -Foul Odor after Cleansing No No No -Bioengineered Tissue No No Yes -Type of Bioengineered Tissue Epifix -Expiration Date 01/25/28 -Product Lot Number [id number] -Percent Used 100 -Bleeding Controlled with Pressure Pressure Pressure -Treatment Response Procedure Procedure Procedure Tolerated Well Tolerated Well Tolerated Well -Debridement - Subq, 1st 20sq cm Yes Yes No -Apply Skin Sub - 1st 25 sq cm - Feet 1 -Epifix (per sq cm) 4 Pain Scale: 0-10 Numeric Is Patient Pain Free? Yes Yes Yes 06/18/23 09:21 Wound Center Nurse 2 3-left dorsal foot -Time 08:45 -Correct Patient Yes -Correct Side, Site, Position Yes -Correct Procedure Yes -Procedure Performed Yes -Type of Procedure Debridement -Clinical Debridement Subcutaneous -Tissue Removed Subcutaneous -Post Debridement (cm) - Length 2.0 -Post Debridement (cm) - Width 1.6 -Post Debridement (cm) - Depth 0.3 -Total Square (Post) (cm) 3.20 -Area of Debridement (cm) - Length 2.0 -Area of Debridement (cm) - Width 1.6 -Total Square (Area) (cm) 3.20 -Tunneling No -Undermining/Tunneling No -Circular Undermining No -Wound/Ulcer Outcome Not Healed -Ulcer Cleansing Rinsed/ Irrigated with Saline -Foul Odor after Cleansing -Bioengineered Tissue Yes -Type of Bioengineered Tissue Epifix -Expiration Date 01/25/28 -Product Lot Number [id number] -Percent Used 100 -Bleeding Controlled with Pressure -Treatment Response Procedure Tolerated Well -Debridement - Subq, 1st 20sq cm No -Apply Skin Sub - 1st 25 sq cm - Feet 1 -Epifix (per sq cm) 4 Pain Scale: 0-10 Numeric Is Patient Pain Free? Yes - Nurse 3 - General Ulcer D/C NN Start: 05/28/23 07:57 Freq: Status: Active Protocol: Activity Type Activity Date Activity User E-sign Co-sign Detail Recorded Client Recorded Date Recorded By Document 06/04/23 08:56 [id number] 06/04/23 08:56 Document 06/11/23 09:01 [facility] [id number] 06/11/23 09:03 [facility] Document 06/18/23 09:32 [id number] 06/18/23 09:32 06/04/23 06/11/23 06/18/23 08:56 09:01 09:32 Wound Care Center Nurse 3 3-left dorsal foot -Ulcer Cleansing Rinsed/ Rinsed/ Irrigated with Irrigated with Saline Saline -Foul Odor after Cleansing No No -Primary Dressing Applied Promogran Brianna Matter -Other Dressing epifix -Primary Dressing Covered/Secured with Dry Gauze, Dry Gauze & Dry Gauze & Secured with Roll Gauze, Roll Gauze, Tape Secured with Secured with Tape Tape -Other Covering abd -Promogran Brianna Matter 1 Treatment Response Procedure Tolerated Well Pain Scale: 0-10 Numeric Is Patient Pain Free? Yes Yes Yes - Visit Discharge Discharge Condition Stable Stable Stable Ambulatory Status Ambulatory Ambulatory Ambulatory Transportation Private Auto Private Auto Private Auto Accompanied by granddaughter janine daughter Medication Reconcilliation completed & Yes Yes provided to patient/care provider Clinical Summary of Care Provided Yes Yes Assessment/Plan Assessment/Plan (1) Wound eschar of foot: CODE(S): R23.4 - Changes in skin texture (2) Essential hypertension: CODE(S): I10 - Essential (primary) hypertension (3) Hyperlipidemia: CODE(S): E78.5 - Hyperlipidemia, unspecified QUALIFIERS: Hyperlipidemia type: unspecified Qualified Code(s): E78.5 - Hyperlipidemia, unspecified (4) Obesity: CODE(S): E66.9 - Obesity, unspecified QUALIFIERS: Obesity classification: unspecified obesity classification Obesity type: due to excess calories Serious obesity comorbidity presence: unspecified whether serious comorbidity present Qualified Code(s): E66.09 - Other obesity due to excess calories (5) Type 2 diabetes mellitus: CODE(S): E11.9 - Type 2 diabetes mellitus without complications QUALIFIERS: Diabetes mellitus complication status: with other specified complication 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 insulin use: without long-term use Qualified Code(s): E11.69 - Type 2 diabetes mellitus with other specified complication (6) Pain in left foot: CODE(S): M79.672 - Pain in left foot (7) Non-pressure chronic ulcer of 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 Wound has not progressed secondary to diabetic status. She has completed full course of Keflex. Ulceration underwent debridement as noted in the clinical panel above. Ulceration measures 2.0 cm x 1.8 cm x 0.2 cm. Ulceration does demonstrate localized rubor secondary to her burn, with improving rubor. No signs of infection. Following debridement healthy, bleeding granular tissue remained. Epifix graft #3 applied to the wound base and dressed with Adaptic touch and anchored with Steri-Strips, dressed with dry sterile dressing. She is to changethe outer dressing as needed. She was instructed to not get the dressings wet. Ulcerative site demonstrates improvement versus previous visit. She was approved for advanced wound care product, epi fix. We will continue application. Last known A1c performed at [facility] 06/18/2022 was 6.1%. Discussed proper diabetic diet to ensure tight glycemic control. Discussed she is not to be barefoot given her diabetic status indoors or outdoors. Shoe gear was encouraged to be worn at all times. Discussed that socks count is barefoot. Discussed adequate protein intake to aid in wound healing. She may take Bonifacio supplementation to aid in wound healing. The following work up and care recommendations were made: Dressing: EpiFix, Adaptic touch, Steri-Strips, dry sterile dressing. Change outer dressings as needed. Wash: Do not get wet Tissue growth optimization: EpiFix Offload: Ensure shoe gear does not rub on the wound site Vascular: DP and PT pulses weakly palpable however triphasic on Doppler. Adequate capillary fill time to digits. Edema: None Infection: No signs of infection Pain: May take [id number] Tylenol for discomfort Host factors: DM type II, obesity, HTN, HLD, patient education on barefoot status encouraged shoe gear to be worn. I answered all the patient's questions. To return to the wound healing center in 1 week or call sooner if the patient has any questions or concerns. 06/25/23 0857 <Electronically signed by Naeem Myers DPM> Cosigner Signature (if applicable): CC: ~ Signed [facility] Work Phone: [phone]) 993-878808-28-2023 Miscellaneous Notes* Telephone Encounter - Sylwia Chang LPN - 06/22/2023 11:11 AM EDT Faxed request to [employer] to have compliance report faxed to office today prior to OV. Sylwia Chang LPN * Telephone Encounter - Joon Lopez MD - 06/18/2023 5:21 PM EDT Noted--make sure addressed when patient seen for follow up * Telephone Encounter - Yuko Ordonez RN - 06/16/2023 1:52 PM EDT Patient's daughter calls very concerned about patient. Patient has been forgetting a lot of things.Patient has been very defiant and short with her. Daughter feels like she is losing her mom. Patient is supposed to be getting a new CPAP Machine since she is not sleeping or breathing well at night.Patient is declining to do this. Patient has been using her inhalers more frequently then she should be using them. Patient has appointment with Dr. Lopez on 06/22/2023. Brooke wanted provider aware of what is going on since she knows that patient will not tell provider this. Patient is also seeing wound center for wound on left foot. Yuko Ordonez RN [facility] Progress note Author Naeem [facility] June 18, 2023 9:37am Note Date/Time June 18, 2023 9: 37am [facility] [address] [place] [address] Progress Note - Wound Care 06/18/23 0932 MR#: [id number] Acct: [id number] Name: KEISHA RED Rep #:[id number] : 1945 78 From: Naeem brary DPM PCP: Dr. Joon Lopez MD Status:RE G RCR Location: History of Present Illness Date of Service: 06/18/23 Chief Complaint: Nonhealing right leg ulcer. History of Wound: Ms. Red is a 78-year-old with PMHx of DM type II, A-fib, HLD, HTN, RAMESH, and obesity. She states roughly 4 weeks ago she dropped a rotisserie chicken and mashed potatoes onto the top of her left foot which resulted in significant burn to the dorsal aspect of the left foot with accompanying localized rubor. She had seen her PCP who placed her on a course of Keflex and she has finished this antibiotic to completion. She was referred to the wound care center for continued care secondary to nonhealing eschar covering the wound to the dorsal foot at the base of the third and fourth digits. Patient does state that the wound is tender to the touch. She denies any N/V/F/chills. Denies any further complaints. Subjective Subjective Patient is a 78-year-old female who follows to the wound care center with ulceration to the dorsal aspect of the left foot. She states she has been changing the outer dressings daily with the assistance of her granddaughter. She does admit to some tenderness about the wound site. She denies constitutional symptoms. Denies further complaints. Objective Data Objective Data Vital Signs: Vital Signs Temp Pulse Resp BP O2 Del Method 96.6 F L 94 18 146/88 H Room Air 06/18/23 08:21 06/18/23 08:21 06/18/23 08:21 06/18/23 08:21 06/11/23 08:05 Oxygen Delivery Method Room Air Weight: 87.997 kg Body Mass Index (BMI) 29.5 Physical Exam Const alert, oriented x3, no apparent distress and well nourished General Appearance: cooperative HEENT normocephalic Eyes General Eye: normal appearance of both eyes Neck General: normal visual inspection Lymph Lymphatic: no lymphadenopathy noted and no lymphedema noted Resp normal respiratory effort Cardio regular rate and regular rhythm Extremity normal capillary refill, no joint enlargement, no calf tenderness and no pedal edema Extremity Narrative: DP and PT pulses weakly palpable. Capillary fill time is less than 4 seconds tothe digits. On Doppler DP and PT are triphasic. Dermatological: There is a wound noted to the dorsal aspect of the left foot at the base of the third and fourth digits with yellow fibrotic tissue in the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 5 ft 8 in Weight 87.997 kg Weight in Pounds 194.0 lbs Weight Measurement Method Estimated by Patient Body Mass Index (BMI) 29.5 29.5 29.5 BMI Classification Overweight Overweight Overweight BSA - Deidre 2.02 Vital Signs Temperature (97.8 F-99.1 F) 95.6 F L 96.0 F L 96.8 F L Temperature Source Temporal Temporal Temporal Pulse Rate (60-100) 96 94 89 Pulse Location Monitor Monitor Monitor Respiratory Rate (12-18) 16 16 16 Respiratory rate source Observation Observation Observation Oxygen Delivery Method Room Air Blood Pressure (90/60-120/80) 134/86 H 145/63 H 138/82 H Blood Pressure Mean (mm Hg) 102 90 100 Source Monitor Monitor Monitor Position Semi-Fowlers Sitting Sitting Blood Pressure Location Left Arm Left Arm Left Arm History Since Last Visit- (Skip if this is Patient's initial visit) Have you changed medications since your No No last visit? Any new allergies or adverse reactions No No Had a fall/change in ADL's that may No No increase risk of falls Signs or symptoms of abuse and/or No No neglect since last visit Have you been in the hospital since your No No last visit? Has dressing in place as prescribed Yes Yes Has compression in place as prescribed N/A N/A Has offloadiing in place as prescribed No N/A Experienced any changes in pain level or No No management Left Footwear Regular Shoe Regular Shoe Regular Shoe Right Footwear Regular Shoe Regular Shoe Regular Shoe Pain Scale: 0-10 Numeric Is Patient Pain Free? Yes Yes Yes Lower Extremity Assessment/ Foot Assessment/ Toe Nail Assessment Right -Posterior Tibial Palpable Yes -Posterior Tibial Doppler Multiphasic -Dorsalis Pedis Palpable Yes -Dorsalis Pedis Doppler Multiphasic -Hair Growth on Legs No -Hair Growth on Toes No -Temperature of Extremity Warm -Capillary Refill Less than 3 Seconds Left -Posterior Tibial Palpable Yes -Posterior Tibial Doppler Multiphasic -Dorsalis Pedis Palpable Yes -Dorsalis Pedis Doppler Multiphasic -Hair Growth on Legs No -Hair Growth on Toes No -Temperature of Extremity Warm -Capillary Refill Less than 3 Seconds -Dependent Rubor No -Blanched when Elevated No Communication Assessment Primary Language Belizean Preferred language Belizean Patient Transport Orderly Required No Able to Read Yes Able to Write Yes Communication Tools None Right Hearing Abillity Normal Left Hearing Abillity Normal Visual Assistive Devices Glasses Teaching Assessment Preferences Verbal,Written, Audio/Visual, Demonstration Barriers to Learning None Readiness To Learn Good Willingness to Engage in Self Management Med Activies Readiness to Engage in Self Management Med Activities Anxiety Level Calm Cooperation Cooperative Perception Coherent Interest in Health Problem Asks Questions Education Importance Acknowledges Need Does Patient Smoke tobacco or other No substances Smoking Status Never smoker Is Patient Diabetic Yes Functional Assessment Recent Decline in Ability to Perform Denies Any Declines Culture/Hinduism/Alternative Financing Specialist Cultural/Hinduism Needs that may affect No Treatment Plan Would you allow our hospital solid center winder to No meet you for the purpose of spiritual/ emotional support? Alternative Financing Specialist to contact place of confucianist No Teaching: Wound Center *Welcome to the Wound Center -Person Taught Patient,Family -Teaching Method Discussion, Demonstration -Response to teaching Return demonstration, Verbalize understanding WC - Nurse 1 - General Ulcer Measurement Start: 05/28/23 07:57 Freq: Status: Active Protocol: Activity Type Activity Date Activity User E-sign Co-sign Detail Recorded Client Recorded Date Recorded By Document 05/28/23 07:57 [id number] 05/28/23 08:13 Document 06/04/23 08:11 [id number] 06/04/23 08:13 Document 06/11/23 08:05 [facility] [id number] 06/11/23 08:13 BM 05/28/23 06/04/23 06/11/23 07:57 08:11 08:05 Wound Center Nurse 1 3-left dorsal foot -Combined with other wound No No No -Current Size (cm) - Length 2.0 2.0 2.1 -Current Size (cm) - Width 2.1 2.0 1.8 -Current Size (cm) - Depth 0.2 0.2 0.4 -Total Square Cm 4.20 4.00 3.78 -Photo Taken Yes No No -Epithelialization None Present Small 1-33% None Present -Tunneling No No No -Undermining/Tunneling No No No -Circular Undermining No No No -Classification - Thickness Unclassifiable (Eschar Covered ) -Exudate Amt Small Small Medium -Exudate Type Serosanguineous Serosanguineous Serosanguineous -Wound Margin Flat & Intact Flat & Intact Distinct, Outline Attached -Granulation Amt None Present (0 Small (1-33%) Medium (34-66%) %) -Granulation Quality [place] -Slough/Fibrin Yes Yes Yes -Necrosis Amt Large (67-100%) Large (67-100%) Medium (34-66%) -Necrotic Tissue Type Adherent Slough Adherent Slough Adherent Slough -Structure Exposed N/A N/A -Texture (Beth-wound Skin Appearance) Assessed, Assessed, Assessed, Localized Edema Localized Edema Scarring -Moisture (Beth-wound Skin Appearance) Assessed,Dry/ Assessed,Dry/ Assessed Scaly Scaly -Color (Beth-wound Skin Appearance) Assessed Assessed Assessed -Temperature (Beth-wound Skin No Abnormality No Abnormality No Abnormality Appearance) (Pt Warm) (Pt Warm) (Pt Warm) -Tenderness on Palpation (Beth-wound No No No Skin Appearance) -Ulcer Cleansing Rinsed/ Rinsed/ Soap and Water Irrigated with Irrigated with Saline Saline -Foul Odor after Cleansing No No -Anesthetic Used 5% Lidocaine 5% Lidocaine 5% Lidocaine Gel Gel Gel Lower Limb Edema Present NA NA Yes Left Calf (cm) 37.6 Left Ankle (cm) 22.8 WC - Nurse 2 - General Ulcer CM Notes Start: 05/28/23 07:57 Freq: Status: Active Protocol: Activity Type Activity Date Activity User E-sign Co-sign Detail Recorded Client Recorded Date Recorded By Document 05/28/23 14:14 PL [id number] 05/28/23 14:15 PL Document 06/04/23 12:12 PL [id number] 06/04/23 12:12 PL 05/28/23 06/04/23 14:14 12:12 Wound Center Nurse 2 3-left dorsal foot -Time 08:37 08:39 -Correct Patient Yes Yes -Correct Side, Site, Position Yes Yes -Correct Procedure Yes Yes -Procedure Performed Yes Yes -Type of Procedure Debridement Debridement -Clinical Debridement Subcutaneous Subcutaneous -Tissue Removed Subcutaneous Subcutaneous -Post Debridement (cm) - Length 2.1 2.2 -Post Debridement (cm) - Width 2.0 2.0 -Post Debridement (cm) - Depth 0.2 0.2 -Total Square (Post) (cm) 4.20 4.40 -Area of Debridement (cm) - Length 2.1 2.2 -Area of Debridement (cm) - Width 2.0 2.0 -Total Square (Area) (cm) 4.20 4.40 -Tunneling No No -Undermining/Tunneling No No -Circular Undermining No No -Wound/Ulcer Outcome Not Healed Not Healed -Ulcer Cleansing Rinsed/ Rinsed/ Irrigated with Irrigated with Saline Saline -Foul Odor after Cleansing No No -Bioengineered Tissue No No -Bleeding Controlled with Pressure Pressure -Treatment Response Procedure Procedure Tolerated Well Tolerated Well -Debridement - Subq, 1st 20sq cm Yes Yes Pain Scale: 0-10 Numeric Is Patient Pain Free? Yes Yes - Nurse 3 - General Ulcer D/C NN Start: 05/28/23 07:57 Freq: Status: Active Protocol: Activity Type Activity Date Activity User E-sign Co-sign Detail Recorded Client Recorded Date Recorded By Document 06/04/23 08:56 [id number] 06/04/23 08:56 Document 06/11/23 09:01 [facility] [id number] 06/11/23 09:03 [facility] 06/04/23 06/11/23 08:56 09:01 Wound Care Center Nurse 3 3-left dorsal foot -Ulcer Cleansing Rinsed/ Irrigated with Saline -Foul Odor after Cleansing No -Primary Dressing Applied Promogran Brianna Matter -Other Dressing epifix -Primary Dressing Covered/Secured with Dry Gauze, Dry Gauze & Secured with Roll Gauze, Tape Secured with Tape -Other Covering abd -Promogran Brianna Matter 1 Treatment Response Procedure Tolerated Well Pain Scale: 0-10 Numeric Is Patient Pain Free? Yes Yes - Visit Discharge Discharge Condition Stable Stable Ambulatory Status Ambulatory Ambulatory Transportation Private Auto Private Auto Accompanied by granddaughter janine Medication Reconcilliation completed & Yes provided to patient/care provider Clinical Summary of Care Provided Yes Assessment/Plan Assessment/Plan (1) Wound eschar of foot: CODE(S): R23.4 - Changes in skin texture (2) Essential hypertension: CODE(S): I10 - Essential (primary) hypertension (3) Hyperlipidemia: CODE(S): E78.5 - Hyperlipidemia, unspecified QUALIFIERS: Hyperlipidemia type: unspecified Qualified Code(s): E78.5 - Hyperlipidemia, unspecified (4) Obesity: CODE(S): E66.9 - Obesity, unspecified QUALIFIERS: Obesity type: due to excess calories Obesity classification: unspecified obesity classification Serious obesity comorbidity presence: unspecified whether serious comorbidity present Qualified Code(s): E66.09 - Other obesity due to excess calories (5) Type 2 diabetes mellitus: CODE(S): E11.9 - Type 2 diabetes mellitus without complications QUALIFIERS: Diabetes mellitus complication status: with other specified complication 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 insulin use: without safety equipment tester use Qualified Code(s): E11.69 - Type 2 diabetes mellitus with other specified complication (6) Pain in left foot: CODE(S): M79.672 - Pain in left foot (7) Non-pressure chronic ulcer of other part of left foot with fat layer exposed: CODE(S): L97.522 - Non-pressure chronic ulcer of other part of left foot with fat layer exposed PLAN: Plan Patient seen and evaluated 6 weeks ago patient dropped hot chicken and mashed potatoes on the top of her left foot resulting in a burn to the dorsal foot with skin eschar secondary to thin skin. Wound has not progressed secondary to diabetic status. She has completed full course of Keflex. Ulceration underwent debridement as noted in the clinical panel above. Ulceration measures 2.0 cm x 2.0 cm x 0.4 cm. Ulceration does demonstrate localized rubor secondary to her burn, with improving rubor. No signs of infection. Following debridement healthy, bleeding granular tissue remained. Epifix graft #1 applied to the wound base and dressed with Adaptic touch and anchored with Steri-Strips, dressed with dry sterile dressing. She is to changethe outer dressing as needed. She was instructed to not get the dressings wet. Ulcerative site demonstrates slight improvement versus previous visit. Recommended not using the black K tape to secure her dressings as she is having pain with changes at local skin irritation due to the adhesive. She was approved for advanced wound care product, epi fix. Last known A1c performed at [facility] 06/18/2022 was 6.1%. Discussed proper diabetic diet to ensure tight glycemic control. Discussed she is not to be barefoot given her diabetic status indoors or outdoors. Shoe gear was encouraged to be worn at all times. Discussed that socks count is barefoot. Discussed adequate protein intake to aid in wound healing. She may take Bonifacio supplementation to aid in wound healing. The following work up and care recommendations were made: Dressing: EpiFix, Adaptic touch, Steri-Strips, dry sterile dressing. Change outer dressings as needed. Wash: Do not get wet Tissue growth optimization: EpiFix Offload: Ensure shoe gear does not rub on the wound site Vascular: DP and PT pulses weakly palpable however triphasic on Doppler. Adequate capillary fill time to digits. Edema: None Infection: No signs of infection Pain: May take [id number] Tylenol for discomfort Host factors: DM type II, obesity, HTN, HLD, patient education on barefoot status encouraged shoe gear to be worn. I answered all the patient's questions. To return to the wound healing center in 1 week or call sooner if the patient has any questions or concerns. 06/11/23 0940 <Electronically signed by Naeem Myers DPM> Cosigner Signature (if applicable): CC: ~ Signed [facility] Work Phone: 1(364) 318-911608-10-2023 Progress note Author Naeem Myers [facility] June 04, 2023 11:58am Note Date/Time June 04, 2023 8: 28am [facility] [address] [place] [address] Progress Note - Wound Care 06/04/2328 MR#: [id number] Acct: [id number] Name: KEISHA RED Rep #:[id number] : 1945 78 From: Naeem barry DPM PCP: Dr. Joon Lopez MD Status:RE G RCR Location: History of Present Illness Date of Service: 06/04/23 Chief Complaint: Nonhealing right leg ulcer. History of Wound: Ms. Red is a 78-year-old with PMHx of DM type II, A-fib, HLD, HTN, RAMESH, and obesity. She states roughly 4 weeks ago she dropped a rotisserie chicken and mashed potatoes onto the top of her left foot which resulted in significant burn to the dorsal aspect of the left foot with accompanying localized rubor. She had seen her PCP who placed her on a course of Keflex and she has finished this antibiotic to completion. She was referred to the wound care center for continued care secondary to nonhealing eschar covering the wound to the dorsal foot at the base of the third and fourth digits. Patient does state that the wound is tender to the touch. She denies any N/V/F/chills. Denies any further complaints. Subjective Subjective Patient is a 78-year-old female who follows to the wound care center with ulceration to the dorsal aspect of the left foot. She states she has been changing the dressings daily with the assistance of her granddaughter. She doesadmit to some tenderness about the wound site with dressing changes due to her adhesive tape. She denies constitutional symptoms. Denies further complaints. Objective Data Objective Data Vital Signs: Vital Signs Temp Pulse Resp BP 96.0 F L 94 16 145/63 H 06/04/23 08:11 06/04/23 08:11 06/04/23 08:11 06/04/23 08:11 Weight: 87.997 kg Body Mass Index (BMI) 29.5 Physical Exam Const alert, oriented x3, no apparent distress and well nourished General Appearance: cooperative HEENT normocephalic Eyes General Eye: normal appearance of both eyes Neck General: normal visual inspection Lymph Lymphatic: no lymphadenopathy noted and no lymphedema noted Resp normal respiratory effort Cardio regular rate and regular rhythm Extremity normal capillary refill, no joint enlargement, no calf tenderness and no pedal edema Extremity Narrative: DP and PT pulses weakly palpable. Capillary fill time is less than 4 seconds tothe digits. On Doppler DP and PT are triphasic. Dermatological: There is a wound noted to the dorsal aspect of the left foot at the base of the third and fourth digits with yellow fibrotic tissue in the woundbed with localized rubor secondary to burn from hot food. Rubor is improving. No erythema, no purulent drainage, no malodor, no palpable fluctuance/bogginess,no visible abscess, no lymphangitic streaking. Surrounding skin is thin. Musculoskeletal: Muscle strength 5 of 5 age-appropriate. There is decreased range of motion of the ankle joint in dorsiflexion with the knee extended without pain or crepitus. Pain to palpation about ulcerative site. Skin no rashes or lesions noted, skin turgor normal and no jaundice Neuro moves all extremities Debridement Note Debridement Note Wound debrided: Dorsal left foot Laterality: Left Wound Grade/Stage: Saeed stage I Type of Debridement: Excisional debridement Anesthesia Used: 5% Lidocaine Gel Depth: Down to and including healthy tissue and in the subcutaneous layer Percentage of wound debrided: 100 Instrument Used: 5mm curette Tissue Removed: Fibrous, devitalized subcutaneous, biofilm, slough Severity: Fat Layer Exposed Amount of bleeding with debridement: Mild Bleeding Controlled with: Compression and gauze Patient tolerated procedure: Patient tolerated procedure well Post-Debridement Measurements and Additional Note: Post-Debridement Measurements/Treatment JEANETTE - Nurse 1 - General Ulcer Assessment Start: 05/28/23 07:57 Freq: Status: Active Protocol: LOWEXT Activity Type Activity Date Activity User E-sign Co-sign Detail Recorded Client Recorded Date Recorded By Document 05/28/23 07:57 [id number] 05/28/23 08:13 Document 06/04/23 08:11 [id number] 06/04/23 08:13 05/28/23 06/04/23 07:57 08:11 - Today's Visit Information Type of service Follow-up Visit 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 (Physician/RADAR ENGINEERING TEACHER ) ) Arrival Mode Ambulatory Ambulatory Transfer Assistance Manual Patient Identification Verified (Name & Yes Yes ) Patient Requires Transmission-Based Yes No Precautions Safety Precautions Fall Prevention Finger Stick Blood Sugar(mg/dl) (if 130 227 indicated): Blood Sugar Stated by Stated by Patient Patient Height and Weight Height 5 ft 8 in Weight 87.997 kg Weight in Pounds 194.0 lbs Weight Measurement Method Estimated by Patient Body Mass Index (BMI) 29.5 29.5 BMI Classification Overweight Overweight BSA - Deidre 2.02 Vital Signs Temperature (97.8 F-99.1 F) 95.6 F L 96.0 F L Temperature Source Temporal Temporal Pulse Rate (60-100) 96 94 Pulse Location Monitor Monitor Respiratory Rate (12-18) 16 16 Respiratory rate source Observation Observation Blood Pressure (90/60-120/80) 134/86 H 145/63 H Blood Pressure Mean (mm Hg) 102 90 Source Monitor Monitor Position Semi-Fowlers Sitting Blood Pressure Location Left Arm Left Arm History Since Last Visit- (Skip if this is Patient's initial visit) Have you changed medications since your No last visit? Any new allergies or adverse reactions No Had a fall/change in ADL's that may No increase risk of falls Signs or symptoms of abuse and/or No neglect since last visit Have you been in the hospital since your No last visit? Has dressing in place as prescribed Yes Has compression in place as prescribed N/A Has offloadiing in place as prescribed No Experienced any changes in pain level or No management Left Footwear Regular Shoe Regular Shoe Right Footwear Regular Shoe Regular Shoe Pain Scale: 0-10 Numeric Is Patient Pain Free? Yes Yes Lower Extremity Assessment/ Foot Assessment/ Toe Nail Assessment Right -Posterior Tibial Palpable Yes -Posterior Tibial Doppler Multiphasic -Dorsalis Pedis Palpable Yes -Dorsalis Pedis Doppler Multiphasic -Hair Growth on Legs No -Hair Growth on Toes No -Temperature of Extremity Warm -Capillary Refill Less than 3 Seconds Left -Posterior Tibial Palpable Yes -Posterior Tibial Doppler Multiphasic -Dorsalis Pedis Palpable Yes -Dorsalis Pedis Doppler Multiphasic -Hair Growth on Legs No -Hair Growth on Toes No -Temperature of Extremity Warm -Capillary Refill Less than 3 Seconds -Dependent Rubor No -Blanched when Elevated No Communication Assessment Primary Language Belizean Preferred language Belizean Patient Transport Orderly Required No Able to Read Yes Able to Write Yes Communication Tools None Right Hearing Abillity Normal Left Hearing Abillity Normal Visual Assistive Devices Glasses Teaching Assessment Preferences Verbal,Written, Audio/Visual, Demonstration Barriers to Learning None Readiness To Learn Good Willingness to Engage in Self Management Med Activies Readiness to Engage in Self Management Med Activities Anxiety Level Calm Cooperation Cooperative Perception Coherent Interest in Health Problem Asks Questions Education Importance Acknowledges Need Does Patient Smoke tobacco or other No substances Smoking Status Never smoker Is Patient Diabetic Yes Functional Assessment Recent Decline in Ability to Perform Denies Any Declines Culture/Hinduism/Alternative Financing Specialist Cultural/Hinduism Needs that may affect No Treatment Plan Would you allow our hospital [facility] winder to No meet you for the purpose of spiritual/ emotional support? Alternative Financing Specialist to contact place of confucianist No Teaching: Wound Center *Welcome to the Wound Center -Person Taught Patient,Family -Teaching Method Discussion, Demonstration -Response to teaching Return demonstration, Verbalize understanding - Nurse 1 - General Ulcer Measurement Start: 05/28/23 07:57 Freq: Status: Active Protocol: Activity Type Activity Date Activity User E-sign Co-sign Detail Recorded Client Recorded Date Recorded By Document 05/28/23 07:57 [id number] 05/28/23 08:13 Document 06/04/23 08:11 [id number] 06/04/23 08:13 05/28/23 06/04/23 07:57 08:11 Wound Center Nurse 1 3-left dorsal foot -Combined with other wound No No -Current Size (cm) - Length 2.0 2.0 -Current Size (cm) - Width 2.1 2.0 -Current Size (cm) - Depth 0.2 0.2 -Total Square Cm 4.20 4.00 -Photo Taken Yes No -Epithelialization None Present Small 1-33% -Tunneling No No -Undermining/Tunneling No No -Circular Undermining No No -Classification - Thickness Unclassifiable (Eschar Covered ) -Exudate Amt Small Small -Exudate Type Serosanguineous Serosanguineous -Wound Margin Flat & Intact Flat & Intact -Granulation Amt None Present (0 Small (1-33%) %) -Granulation Quality [place] -Slough/Fibrin Yes Yes -Necrosis Amt Large (67-100%) Large (67-100%) -Necrotic Tissue Type Adherent Slough Adherent Slough -Structure Exposed N/A N/A -Texture (Beth-wound Skin Appearance) Assessed, Assessed, Localized Edema Localized Edema -Moisture (Beth-wound Skin Appearance) Assessed,Dry/ Assessed,Dry/ Scaly Scaly -Color (Beth-wound Skin Appearance) Assessed Assessed -Temperature (Beth-wound Skin No Abnormality No Abnormality Appearance) (Pt Warm) (Pt Warm) -Tenderness on Palpation (Beth-wound No No Skin Appearance) -Ulcer Cleansing Rinsed/ Rinsed/ Irrigated with Irrigated with Saline Saline -Foul Odor after Cleansing No -Anesthetic Used 5% Lidocaine 5% Lidocaine Gel Gel Lower Limb Edema Present NA NA WC - Nurse 2 - General Ulcer CM Notes Start: 05/28/23 07:57 Freq: Status: Active Protocol: Activity Type Activity Date Activity User E-sign Co-sign Detail Recorded Client Recorded Date Recorded By Document 05/28/23 14:14 PL [id number] 05/28/23 14:15 PL 05/28/23 14:14 Wound Center Nurse 2 3-left dorsal foot -Time 08:37 -Correct Patient Yes -Correct Side, Site, Position Yes -Correct Procedure Yes -Procedure Performed Yes -Type of Procedure Debridement -Clinical Debridement Subcutaneous -Tissue Removed Subcutaneous -Post Debridement (cm) - Length 2.1 -Post Debridement (cm) - Width 2.0 -Post Debridement (cm) - Depth 0.2 -Total Square (Post) (cm) 4.20 -Area of Debridement (cm) - Length 2.1 -Area of Debridement (cm) - Width 2.0 -Total Square (Area) (cm) 4.20 -Tunneling No -Undermining/Tunneling No -Circular Undermining No -Wound/Ulcer Outcome Not Healed -Ulcer Cleansing Rinsed/ Irrigated with Saline -Foul Odor after Cleansing No -Bioengineered Tissue No -Bleeding Controlled with Pressure -Treatment Response Procedure Tolerated Well -Debridement - Subq, 1st 20sq cm Yes Pain Scale: 0-10 Numeric Is Patient Pain Free? Yes Assessment/Plan Assessment/Plan (1) Wound eschar of foot: CODE(S): R23.4 - Changes in skin texture (2) Essential hypertension: CODE(S): I10 - Essential (primary) hypertension (3) Hyperlipidemia: CODE(S): E78.5 - Hyperlipidemia, unspecified QUALIFIERS: Hyperlipidemia type: unspecified Qualified Code(s): E78.5 - Hyperlipidemia, unspecified (4) Obesity: CODE(S): E66.9 - Obesity, unspecified QUALIFIERS: Obesity classification: unspecified obesity classification Obesity type: due to excess calories Serious obesity comorbidity presence: unspecified whether serious comorbidity present QualifiedCode(s): E66.09 - Other obesity due to excess calories (5) Type 2 diabetes mellitus: CODE(S): E11.9 - Type 2 diabetes mellitus without complications QUALIFIERS: Diabetes mellitus complication status: with other specified complication 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 insulin use: without long-term use Qualified Code(s): E11.69 - Type 2 diabetes mellitus with other specified complication (6) Pain in left foot: CODE(S): M79.672 - Pain in left foot (7) Non-pressure chronic ulcer of other part of left foot with fat layer exposed: CODE(S): L97.522 - Non-pressure chronic ulcer of other part of left foot with fat layer exposed PLAN: Plan Patient seen and evaluated 5 weeks ago patient dropped hot chicken and mashed potatoes on the top of her left foot resulting in a burn to the dorsal foot with skin eschar secondary to thin skin. Wound has not progressed secondary to diabetic status. She has completed full course of Keflex. Ulceration underwent debridement as noted in the clinical panel above. Ulceration measures 2.2 cm x 2.0 cm x 0.2 cm. Ulceration does demonstrate localized rubor secondary to her burn, with improving rubor. No signs of infection. Following debridement healthy, bleeding granular tissue remained. Brianna applied to the wound base and dressed with dry sterile dressing. She is to change the dressing daily. Ulcerative site demonstrates no change versus previous visit. Recommended not using the black K tape to secure her dressings as she is having pain with changes at local skin irritation due to the adhesive. Still awaiting approval for advanced wound care product, epi fix for next visit. Last known A1c performed at [facility] 06/18/2022 was 6.1%. Discussed proper diabetic diet today to ensure tight glycemic control. Discussed she is not to be barefoot given her diabetic status indoors or outdoors. Shoe gear was encouraged to be worn at all times. Discussed that socks count is barefoot. Discussed adequate protein intake to aid in wound healing. She may take Bonifacio supplementation to aid in wound healing. The following work up and care recommendations were made: Dressing: Brianna and dry sterile dressing. Change daily. Wash: Soap and water Tissue growth optimization: Brianna Offload: Ensure shoe gear does not rub on the wound site Vascular: DP and PT pulses weakly palpable however triphasic on Doppler. Adequate capillary fill time to digits. Edema: None Infection: No signs of infection Pain: May take [id number] Tylenol for discomfort Host factors: DM type II, obesity, HTN, HLD, patient education on barefoot status encouraged shoe gear to be worn. I answered all the patient's questions. To return to the wound healing center in 1 week or call sooner if the patient has any questions or concerns. 06/04/23 1158 <Electronically signed by Naeem Myers DPM> Cosigner Signature (if applicable): CC: ~ Signed [facility] Work Phone: 1(444) 671-606208-03-2023 History and physical note Author Naeem Myers [facility] May 28, 2023 10:51am Note Date/Time May 28, 2023 8:2 9am [facility] [address] [place] [address] H&P Exam - Wound Care 05/28/23 0829 MR#: [id number] Acct: [id number] Name: KEISHA RED Rep #:[id number] : 1945 78 From: Naeem barry DPM PCP: Dr. Joon Lopez MD Status:RE G R Location: History of Present Illness Date of Service: 05/28/23 Chief Complaint: Nonhealing right leg ulcer. History of Wound: Ms. Red is a 78-year-old with PMHx of DM type II, A-fib, HLD, HTN, RAMESH, and obesity. She states roughly 4 weeks ago she dropped a rotisserie chicken and mashed potatoes onto the top of her left foot which resulted in significant burn to the dorsal aspect of the left foot with accompanying localized rubor. She had seen her PCP who placed her on a course of Keflex and she has finished this antibiotic to completion. She was referred to the wound care center for continued care secondary to nonhealing eschar covering the wound to the dorsal foot at the base of the third and fourth digits. Patient does state that the wound is tender to the touch. She denies any N/V/F/chills. Denies any further complaints. 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 Obesity RAMESH (obstructive sleep apnea) Other secondary pulmonary hypertension Palpitations Pneumonia Shoulder dislocation Home Medications warfarin 5 mg tablet 5 mg PO DAILY blood thinner 11/18/18 [History Last Taken 06/15/22] atorvastatin 10 mg tablet 10 mg PO QHS cholesterol 12/11/19 [History Last Taken 06/15/22] TENS unit electrodes #2 ea 07/11/20 [History Last Taken Unknown] oxycodone-acetaminophen 5 mg-325 mg tablet 1 tab PO DAILY PRN pain 12/07/20 [History Last Taken 06/15/22] cyclobenzaprine 10 mg tablet 5 - 10 mg PO BID PRN Spasms 06/17/22 [History Last Taken 06/16/22] magnesium oxide 400 mg PO DAILY supplement 06/17/22 [History Last Taken 06/16/22] metformin 500 mg tablet,extended release 24 hr 1,000 mg PO BID DM 06/17/22 [History Last Taken 06/16/22] gabapentin 300 mg capsule 300 mg PO BREAKFAST nerve pain 08/04/22 [History Last Taken Unknown] gabapentin 300 mg capsule 600 mg PO QHS Neuropathy 08/04/22 [History Last Taken Unknown] budesonide-formoterol HFA 160 mcg-4.5 mcg/actuation aerosol inhaler (Symbicort) 2 puff inhalation BID asthma #10.2 grams 10/14/22 [Rx Last Taken Unknown] cephalexin 500 mg capsule 500 mg PO Q6 #28 CAPSULES 03/18/23 [Rx Last Taken Unknown] prednisone 20 mg tablet 60 mg (3 x 20 mg) PO QDAY #15 tabs 04/16/23 [Rx Last Taken Unknown] cephalexin 500 mg capsule 500 mg PO Q6 10 days #40 CAPSULES 05/09/23 [Rx Last Taken Unknown] albuterol sulfate 90 mcg/actuation aerosol inhaler 2 puff inhalation Q4H PRN shortness of breath or wheezing #8.5 grams 05/24/23 [Rx Last Taken Unknown] Allergy/AdvReac Type Severity Reaction Status Date / Time amoxicillin Allergy Severe Hives Verified 05/21/23 11:11 aspirin Allergy Severe Hives, SOB Verified 05/21/23 11:11 Sulfa (Sulfonamide Allergy Severe Hives Verified 05/21/23 11:11 Antibiotics) Family History Mother Diabetes Father CAD (coronary artery disease) Sister Lung cancer Son Kidney stone Surgical History History of appendectomy History of kidney surgery Presence of permanent cardiac pacemaker (04/01/19) Social History household members: none housing: house number of children: 3 current occupational status: retired Smoking Status: Never smoker alcohol intake: never substance use type: does not use what type of physical activity do you participate in: none do you feel safe at home: Yes ROS Constitutional Constitutional: Denies anorexia, chills or fever(s) Eyes Eyes: Denies blurry vision, erythema or eye pain ENT HEENT: Denies dysphagia, nasal discharge or sore throat Cardiovascular Cardiovascular: Denies chest pain, dyspnea or palpitations Respiratory/Chest Respiratory/Chest: Denies cough, shortness of breath at rest or wheezing Gastrointestinal Gastrointestinal: Denies abdominal pain, constipation, diarrhea, nausea or vomiting Genitourinary Genitourinary: Denies dysuria, hematuria or urinary frequency Musculoskeletal Musculoskeletal: Denies joint pain, joint stiffness or joint swelling Integumentary Integumentary: Denies jaundice, lesions or rash Neurologic Neurologic: Denies dizziness, numbness or seizures Endocrine Endocrinology: Denies cold intolerance or heat intolerance Hematologic/Lymphatic Hematologic/Lymphatic: Denies easy bleeding or easy bruising Vital Signs Vital Signs Vital Signs: 05/28/23 07:57 Temperature 95.6 F L Temperature Source Temporal Pulse Rate 96 Respiratory Rate 16 Blood Pressure 134/86 H Blood Pressure Mean 102 Blood Pressure Source Monitor Blood Pressure Position Semi-Fowlers Blood Pressure Location Left Arm Weight Weight: 87.997 kg Body Mass Index (BMI) 29.5 Physical Exam Const alert, oriented x3, no apparent distress and well nourished General Appearance: cooperative HEENT normocephalic Eyes General Eye: normal appearance of both eyes Neck General: normal visual inspection Lymph Lymphatic: no lymphadenopathy noted and no lymphedema noted Resp normal respiratory effort Cardio regular rate and regular rhythm Extremity normal capillary refill, no joint enlargement, no calf tenderness and no pedal edema Extremity Narrative: DP and PT pulses weakly palpable. Capillary fill time is less than 4 seconds tothe digits. On Doppler DP and PT are triphasic. Dermatological: There is a wound noted to the dorsal aspect of the left foot at the base of the third and fourth digits with eschar covering centrally and yellow fibrotic tissue about the wound margin with localized rubor secondary to burn from hot food. No erythema, no purulent drainage, no malodor, no palpable fluctuance/bogginess, no visible abscess, no lymphangitic streaking. Surrounding skin is thin. Musculoskeletal: Muscle strength 5 of 5 age-appropriate. There is decreased range of motion of the ankle joint in dorsiflexion with the knee extended without pain or crepitus. Pain to palpation about ulcerative site. Skin no rashes or lesions noted, skin turgor normal and no jaundice Neuro moves all extremities Debridement Note Debridement Note Wound debrided: Dorsal left foot Laterality: Left Wound Grade/Stage: Saeed stage I Type of Debridement: Excisional debridement Anesthesia Used: 5% Lidocaine Gel Depth: Down to and including healthy tissue and in the subcutaneous layer Percentage of wound debrided: 100 Instrument Used: 5mm curette, #15 blade and Forceps Tissue Removed: Fibrous, devitalized subcutaneous, biofilm, slough, eschar Severity: Fat Layer Exposed Amount of bleeding with debridement: Mild Bleeding Controlled with: Compression and gauze Patient tolerated procedure: Patient tolerated procedure well Post-Debridement Measurements and Additional Note: Post-Debridement Measurements/Treatment - Nurse 1 - General Ulcer Assessment Start: 05/28/23 07:57 Freq: Status: Active Protocol: LOWEXCynthia Activity Type Activity Date Activity User E-sign Co-sign Detail Recorded Client Recorded Date Recorded By Document 05/28/23 07:57 [id number] 05/28/23 08:13 MARYURI 05/28/23 07:57 - Today's Visit Information Type of service 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 ) Arrival Mode Ambulatory Transfer Assistance Manual Patient Identification Verified (Name & Yes ) Patient Requires Transmission-Based Yes Precautions Safety Precautions Fall Prevention Finger Stick Blood Sugar(mg/dl) (if 130 indicated): Blood Sugar Stated by Patient Height and Weight Height 5 ft 8 in Weight 87.997 kg Weight in Pounds 194.0 lbs Weight Measurement Method Estimated by Patient Body Mass Index (BMI) 29.5 BMI Classification Overweight BSA - Deidre 2.02 Vital Signs Temperature (97.8 F-99.1 F) 95.6 F L Temperature Source Temporal Pulse Rate (60-100) 96 Pulse Location Monitor Respiratory Rate (12-18) 16 Respiratory rate source Observation Blood Pressure (90/60-120/80) 134/86 H Blood Pressure Mean 102 Source Monitor Position Semi-Fowlers Blood Pressure Location Left Arm History Since Last Visit- (Skip if this is Patient's initial visit) Left Footwear Regular Shoe Right Footwear Regular Shoe Pain Scale: 0-10 Numeric Is Patient Pain Free? Yes Lower Extremity Assessment/ Foot Assessment/ Toe Nail Assessment Right -Posterior Tibial Palpable Yes -Posterior Tibial Doppler Multiphasic -Dorsalis Pedis Palpable Yes -Dorsalis Pedis Doppler Multiphasic -Hair Growth on Legs No -Hair Growth on Toes No -Temperature of Extremity Warm -Capillary Refill Less than 3 Seconds Left -Posterior Tibial Palpable Yes -Posterior Tibial Doppler Multiphasic -Dorsalis Pedis Palpable Yes -Dorsalis Pedis Doppler Multiphasic -Hair Growth on Legs No -Hair Growth on Toes No -Temperature of Extremity Warm -Capillary Refill Less than 3 Seconds -Dependent Rubor No -Blanched when Elevated No Communication Assessment Primary Language Belizean Preferred language Belizean Patient Transport Orderly Required No Able to Read Yes Able to Write Yes Communication Tools None Right Hearing Abillity Normal Left Hearing Abillity Normal Visual Assistive Devices Glasses Teaching Assessment Preferences Verbal,Written, Audio/Visual, Demonstration Barriers to Learning None Readiness To Learn Good Willingness to Engage in Self Management Med Activies Readiness to Engage in Self Management Med Activities Anxiety Level Calm Cooperation Cooperative Perception Coherent Interest in Health Problem Asks Questions Education Importance Acknowledges Need Does Patient Smoke tobacco or other No substances Smoking Status Never smoker Is Patient Diabetic Yes Functional Assessment Recent Decline in Ability to Perform Denies Any Declines Culture/Hinduism/Alternative Financing Specialist Cultural/Hinduism Needs that may affect No Treatment Plan Would you allow our hospital [facility] center win[facility] to No meet you for the purpose of spiritual/ emotional support? Alternative Financing Specialist to contact place of confucianist No Teaching: Wound Center *Welcome to the Wound Center -Person Taught Patient,Family -Teaching Method Discussion, Demonstration -Response to teaching Return demonstration, Verbalize understanding WC - Nurse 1 - General Ulcer Measurement Start: 05/28/23 07:57 Freq: Status: Active Protocol: Activity Type Activity Date Activity User E-sign Co-sign Detail Recorded Client Recorded Date Recorded By Document 05/28/23 07:57 [id number] 05/28/23 08:13 MARYURI 05/28/23 07:57 Wound Center Nurse 1 3-left dorsal foot -Combined with other wound No -Current Size (cm) - Length 2.0 -Current Size (cm) - Width 2.1 -Current Size (cm) - Depth 0.2 -Total Square Cm 4.20 -Photo Taken Yes -Epithelialization None Present -Tunneling No -Undermining/Tunneling No -Circular Undermining No -Classification - Thickness Unclassifiable (Eschar Covered ) -Exudate Amt Small -Exudate Type Serosanguineous -Wound Margin Flat & Intact -Granulation Amt None Present (0 %) -Slough/Fibrin Yes -Necrosis Amt Large (67-100%) -Necrotic Tissue Type Adherent Slough -Structure Exposed N/A -Texture (Beth-wound Skin Appearance) Assessed, Localized Edema -Moisture (Beth-wound Skin Appearance) Assessed,Dry/ Scaly -Color (Beth-wound Skin Appearance) Assessed -Temperature (Beth-wound Skin No Abnormality Appearance) (Pt Warm) -Tenderness on Palpation (Beth-wound No Skin Appearance) -Ulcer Cleansing Rinsed/ Irrigated with Saline -Foul Odor after Cleansing No -Anesthetic Used 5% Lidocaine Gel Lower Limb Edema Present NA Assessment/Plan Assessment/Plan (1) Wound eschar of foot: CODE(S): R23.4 - Changes in skin texture (2) Essential hypertension: CODE(S): I10 - Essential (primary) hypertension (3) Hyperlipidemia: CODE(S): E78.5 - Hyperlipidemia, unspecified QUALIFIERS: Hyperlipidemia type: unspecified Qualified Code(s): E78.5 - Hyperlipidemia, unspecified (4) Obesity: CODE(S): E66.9 - Obesity, unspecified QUALIFIERS: Obesity classification: unspecified obesity classification Obesity type: due to excess calories Serious obesity comorbidity presence: unspecified whether serious comorbidity present QualifiedCode(s): E66.09 - Other obesity due to excess calories (5) Type 2 diabetes mellitus: CODE(S): E11.9 - Type 2 diabetes mellitus without complications QUALIFIERS: Diabetes mellitus complication status: with other specified complication Diabetes mellitus long-term insulin use: without 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 Wound has not progressed secondary to diabetic status. She has completed full course of Keflex. Ulceration underwent debridement as noted in the clinical panel above. Ulceration measures 2.1 cm x 2.0 cm x 0.2 cm. Ulceration does demonstrate localized rubor secondary to her burn. No signs of infection. Following debridement healthy, bleeding granular tissue remained. Brianna applied to the wound base and dressed with dry sterile dressing. She is to change the dressingdaily. We will seek approval for advanced wound care product, epi fix for next visit. Last known A1c performed at [facility] 06/18/2022 was 6.1%. Discussed proper diabetic diet today to ensure tight glycemic control. Discussed she is not to be barefoot given her diabetic status indoors or outdoors. Shoe gear was encouraged to be worn at all times. Discussed that socks count is barefoot. Discussed adequate protein intake to aid in wound healing. She may take Bonifacio supplementation to aid in wound healing. The following work up and care recommendations were made: Dressing: Brianna and dry sterile dressing. Change daily. Wash: Soap and water Tissue growth optimization: Brianna Offload: Ensure shoe gear does not rub on the wound site Vascular: DP and PT pulses weakly palpable however triphasic on Doppler. Adequate capillary fill time to digits. Edema: None Infection: No signs of infection Pain: May take [id number] Tylenol for discomfort Host factors: DM type II, obesity, HTN, HLD, patient education on barefoot status encouraged shoe gear to be worn. I answered all the patient's questions. To return to the wound healing center in 1 week or call sooner if the patient has any questions or concerns. 05/28/23 1051 <Electronically signed by Naeem Myers DPM> Cosigner Signature (if applicable): CC: ~ Signed [facility] Work Phone: [phone] 239-587907-27-2023 Discharge summary Author Freddy Robert [facility] May 21, 2023 1:31pm Note Date/Time May 21, 2023 1:31 pm [facility] Medical Records Department [address] [place] [address] Emergency Department Summary 05/21/23 MR#: [id number] Acct: [id number] Name: KEISHA RED Rep #:[id number] : 1945 78 From: Freddy Robert MD PCP: Dr. Joon Lopez MD Status:RE G ER Location: ED HPI History of Present Illness Chief Complaint: Wound Check Detail of Chief Complaint: Nonhealing wound x1 month dorsum left foot Informant: patient and family (Family member has pictures of the wound.) Occured/Mechanism Mechanism/Context: Yes burn Burn: thermal Comment: Patient dropped hot rotisserie chicken on her foot that resulted in burn and subsequent infection. She was seen in the emergency room and treated for the infection. She presents because of wound has not progressed i.e. healedfor over a month. Onset/Context/Timing Context: Sudden Onset Timing: Continuous Location: Dorsum of the left foot the proximity of the third and fourth toe webspace Current Severity: Mild Maximum Severity: Mild Worsened by: Suspect due to peripheral arterial disease. Per patient nothing Relieved by: Nothing Associated Symptoms Associated Symptoms: Negative for Parasthesia, Weakness or Loss of Funtion Narrative Narrative: Patient is a 78-year-old woman with history of obesity, diabetes, pulmonary hypertension, obstructive sleep apnea, long-term anticoagulant use for atrial fibrillation and hypertension who presents because of nonhealing wound dorsum ofleft foot due to thermal burn. This occurred over a month ago. She she was seen earlier this month and placed on a proper antibiotics. Wound did improve. Infection did resolve based on pictures taken by family member and based on my physical exam. Patient denies symptoms claudication. Patient was unaware that she had no hair on her toes. 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 Obesity RAMESH (obstructive sleep apnea) Other secondary pulmonary hypertension Palpitations Pneumonia Shoulder dislocation Home Medications warfarin 5 mg tablet 5 mg PO DAILY blood thinner 11/18/18 [History Last Taken 06/15/22] atorvastatin 10 mg tablet 10 mg PO QHS cholesterol 12/11/19 [History Last Taken 06/15/22] TENS unit electrodes #2 ea 07/11/20 [History Last Taken Unknown] oxycodone-acetaminophen 5 mg-325 mg tablet 1 tab PO DAILY PRN pain 12/07/20 [History Last Taken 06/15/22] cyclobenzaprine 10 mg tablet 5 - 10 mg PO BID PRN Spasms 06/17/22 [History Last Taken 06/16/22] magnesium oxide 400 mg PO DAILY supplement 06/17/22 [History Last Taken 06/16/22] metformin 500 mg tablet,extended release 24 hr 1,000 mg PO BID DM 06/17/22 [History Last Taken 06/16/22] gabapentin 300 mg capsule 300 mg PO BREAKFAST nerve pain 08/04/22 [History Last Taken Unknown] gabapentin 300 mg capsule 600 mg PO QHS Neuropathy 08/04/22 [History Last Taken Unknown] albuterol sulfate 90 mcg/actuation aerosol inhaler 2 puff inhalation Q4H PRN shortness of breath or wheezing #8.5 grams 10/14/22 [Rx Last Taken Unknown] budesonide-formoterol HFA 160 mcg-4.5 mcg/actuation aerosol inhaler (Symbicort) 2 puff inhalation BID asthma #10.2 grams 10/14/22 [Rx Last Taken Unknown] cephalexin 500 mg capsule 500 mg PO Q6 #28 CAPSULES 03/18/23 [Rx Last Taken Unknown] prednisone 20 mg tablet 60 mg (3 x 20 mg) PO QDAY #15 tabs 04/16/23 [Rx Last Taken Unknown] cephalexin 500 mg capsule 500 mg PO Q6 10 days #40 CAPSULES 05/09/23 [Rx Last Taken Unknown] Allergy/AdvReac Type Severity Reaction Status Date / Time amoxicillin Allergy Severe Hives Verified 05/21/23 11:11 aspirin Allergy Severe Hives, SOB Verified 05/21/23 11:11 Sulfa (Sulfonamide Allergy Severe Hives Verified 05/21/23 11:11 Antibiotics) Family History Mother Diabetes Father CAD (coronary artery disease) Sister Lung cancer Son Kidney stone Surgical History History of appendectomy History of kidney surgery Presence of permanent cardiac pacemaker (04/01/19) Social History household members: none housing: house number of children: 3 current occupational status: retired Smoking Status: Never smoker alcohol intake: never substance use type: does not use what type of physical activity do you participate in: none do you feel safe at home: Yes ROS ROS ED Constitutional Constitutional ED: Denies chills, fever(s), subjective, sweats or weight loss Eyes Eyes: Denies blurry vision, change in vision or diplopia Cardiovascular Cardiovascular: Denies chest pain or palpitations Respiratory/Chest Respiratory/Chest: Denies dyspnea or dyspnea on exertion Integumentary Reports rash and other Details: Thermal burn with eschar dorsum of left foot with no evidence of cellulitis, lymphangitis and there is no fluctuance. Neurologic Neurologic: Denies headache(s), paresthesias or weakness Psychiatric Psychiatric: Denies anxiety or depression Hematologic/Lymphatic Hematologic/Lymphatic: Reports easy bruising; Denies easy bleeding EXAM Physical Exam Const Vital Signs: 05/21/23 11:10 Temperature 96.2 F L Temperature Source Temporal Pulse Rate 87 Respiratory Rate 18 Blood Pressure 136/97 H Blood Pressure Mean 110 Pulse Ox 97 Oxygen Delivery Method Room Air Positive well nourished and well developed General Appearance ED: well developed and NAD HEENT Reports moist mucous membranes normocephalic and atraumatic Eyes PERRL Eyes Narrative: Extraocular muscles are intact. Conjunctive is pink. Sclera is anicteric. Chest Wall inspection of chest normal and palpation of chest normal Resp normal respiratory effort, no retractions and clear to auscultation bilaterally Cardio regular rate, regular rhythm, S1 normal heart sound, S2 normal heart sound and no murmurs Extremity full ROM; Negative for normal to inspection Extremity Narrative: DP pulses 1+ and symmetric. There is no hair on the toes. There is stigmata ofvascular disease. There is an eschar noted without evidence of infection. Neuro oriented x3, CN's II-XII intact bilaterally, moves all extremities and no sensory deficits noted Sensorium / Orientation: alert Motor Exam: strength 5/5 throughout Psych mental status grossly normal Skin No no wounds Skin Narrative: Eschar size of a quarter on the dorsum of the left foot. Rashes: no rashes Trauma: Negative for abrasion or laceration MDM MDM MDM Narrative Medical decision making narrative: Suspect patient's wound is not healing well because she is diabetic with vascular disease. This is probably microvascular. CBC was obtained, sed rate and electrolyte panel to assess white count, differential, inflammatory markers and renal function and glucose. X-ray was obtained since the wound is not present for a month and was infected to assess for evidence of osteomyelitis or periosteal elevation. History & Record Review Discussion w/independent historian: Patient and Family Additional record(s) reviewed:: Prior ED visit and Prior labs Lab Data Attestation: I reviewed the patient's lab results. Lab results narrative: CBC is normal. Basic metabolic panel reveals a creatinine of 1.04 with a GFR 55 Labs: Laboratory Results - last 24 hr 05/21/23 12:30 WBC 8.3 RBC 4.49 Hgb 14.5 Hct 43.9 MCV 97.8 MCH 32.3 H MCHC 33.0 RDW Std Deviation 44.8 H RDW Coeff of Jason 12.4 Plt Count 155 MPV 9.5 Immature Gran % (Auto) 1.200 H Neut % (Auto) 66.2 Lymph % (Auto) 21.2 Bureau % (Auto) 8.4 Eos % (Auto) 2.3 Baso % (Auto) 0.7 Absolute Neuts (auto) 5.5 Absolute Lymphs (auto) 1.76 Nucleated RBC % 0 ESR 3 Sodium 138 Potassium 4.2 Chloride 103 Carbon Dioxide 30.0 Anion Gap 5 BUN 21 H Creatinine 1.04 H Estim Creat Clear Calc 46.42 Est GFR (MDRD) Af Amer 66 Est GFR (MDRD) Non-Af 55 L BUN/Creatinine Ratio 20.2 H Glucose 101 Calcium 9.3 Radiography Chest X-Ray - ED: Read by ED Physician (Three-view x-ray of the foot reveals soft tissue swelling. There is no evidence of osteomyelitis. There is no foreign body noted. This was independent reviewed and interpreted by me.) Diagnostic Testing: Clinical Impression(s) from Imaging Studies Foot X-Ray 05/21/23 12:40 IMPRESSION: Diffuse soft tissue swelling. Plantar spur. Electronically Signed: Chance Pearl MD at 12:56 EDT , Treatment and Re-Evaluation Narrative: Patient with 4 to the wound center since her evidence of infection. 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 Instructions: ED Dressing Change, ED Wound Care Prescriptions: No Action oxycodone-acetaminophen 5-325 mg tablet 1 tab PO DAILY PRN (Reason: pain) (DME) TENS unit electrodes Pad See Rx Instructions .ROUTE .MEDSUPPLY Qty: 2 Rx Instructions: As directed albuterol sulfate 90 mcg/actuation HFA aerosol inhaler 2 puff INHALATION Q4H PRN (Reason: shortness of breath or wheezing) Qty: 8.5 6RF Rx Instructions: administer with spacer Symbicort 160-4.5 mcg/actuation HFA aerosol inhaler 2 puff INHALATION BID Qty: 10.2 11RF prednisone 20 mg tablet 60 mg PO QDAY Qty: 15 0RF Rx Instructions: administer with food or milk warfarin 5 MG tablet 5 mg PO DAILY Protocol: Dose Management Condition: Thursday Dose/Route: 5 mg Instruction: 1 x 5 mg tablet Condition: Thursday Dose/Route: 5 mg Instruction: 1 x 5 mg tablet Condition: Thursday Dose/Route: 5 mg Instruction: 1 x 5 mg tablet Condition: Thursday Dose/Route: 5 mg Instruction: 1 x 5 mg tablet Condition: Dose/Route: 2.5 mg Instruction: 0.5 x 5 mg tablets Condition: Thursday Dose/Route: 2.5 mg Instruction: 0.5 x 5 mg tablets Condition: Thursday Dose/Route: 5 mg Instruction: 1 x 5 mg tablet Protocol Text: Adjustment Start Date: Thursday03/31/23 INR Value: 2.2 INR Date: 03/31/23 Recheck Date: 04/28/23 Rx Instructions: 5 mg. , , THU atorvastatin 10 MG tablet 10 mg PO QHS gabapentin 300 mg capsule 600 mg PO QHS cyclobenzaprine 10 mg Tablet 5 - 10 mg PO BID PRN (Reason: Spasms) metformin 500 mg tablet extended release 24 hr 1,000 mg PO BID Patient Comments: Take 2 tablets by mouth twice daily with meals. magnesium oxide 400 mg magnesium Tablet 400 mg PO DAILY gabapentin 300 mg capsule 300 mg PO BREAKFAST Patient Comments: Take 2 capsules by mouth daily at bedtime AND 1 capsule every morning. Rx Instructions: 300 mg orally; cephalexin [cephalexin] 500 mg capsule 500 mg PO Q6 Qty: 28 0RF cephalexin 500 mg capsule 500 mg PO Q6 10 Days Qty: 40 0RF Primary Care Provider: Joon Lopez Referrals: Joon Lopez MD [Primary Care Provider] - Wound,Center [Non-Staff] - As soon as possible Activity Restrictions/Additional Instructions: Wet-to-dry dressing changes 6 times a day. Disposition Disposition: Home, Self Care What to do if you have Problems For any increased pain, shortness of breath, bleeding, nausea or vomiting, chestpain, or any unexpected problems, contact your Primary Care Provider. Call [facility] ([phone]) or report to the closest Emergency Room. Call 911 if necessary. 05/21/23 1331 <Electronically signed by Freddy Robert MD> Cosigner Signature (if applicable): CC: Dr. Joon Lopez MD ~ Signed [facility] Work Phone: [phone] 138-603007-18-2023 Instructions* Patient Instructions* Whitney Hammond APRN.CNP - 05/12/2023 9:09 AM EDT Take your [...] the Keflex, start doxycycline for infection. See general car supervisor yard (foot doctor). [facility] History of Present illness Narrative* Whitney Hammond APRN.CNP - 05/12/2023 8:51 AM EDT Images from the original note were not included. SUBJECTIVE Keisha Red is a 78 year old female here today for an ER follow up. Chief Complaint Patient presents with: Wound Check: 05/02/2023 left foot burn from a plate of hot chicken sliding of plate 2 week ago seenin [facility] ER on 05/09/23. Was treated with cephalexin 500mg every 6 hours. HPI Keisha Red is a 78 year old female established patient of Joon Lopez MD. She presents today for an ER follow up. Seen in the ER at [facility] for an injury sustained on 05/02. Her left foot was burnt from hot chicken falling on to the foot. Went to ER on 05/09, records available to review in Care Everywhere. She went in for evaluation due to noting an area of black skin and redness around thewound. Diagnosed with burn and cellulitis of the top of left foot. At the time per ER note the openwound was half dollar sized just proximal to [...] mouth daily at bedtime AND 1 capsule everymorning. Do all this for 180 days. albuterol HFA (PROAIR HFA) 90 mcg/actuation inhaler Inhale 2 Puffs as instructed every 4 hours as needed for wheezing/shortness of breath. 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) diclofenac (VOLTAREN ARTHRITIS PAIN) 1 % [...] to affected area once daily. methylPREDNISolone (MEDROL, AMT,) 4 mg Dose-Pack As Instructed per package [...] Diabetes Mellitus Type 2, Controlled, Without Complications ([facility]) Hyperlipemia - 12/19/2010 Back Strain, [...] taper to try and reduce some of theinflammation that may be contributing to her pain, [...] from today's visit and in agreement with treatmentplan. Questions answered. Agrees to call the office if questions, concerns of issues with acute symptoms not improving or if they worsen. Return if symptoms worsen or fail to improve, for Keep next scheduled appointment.. Whitney Hammond APRN-DOMINGO documented in this encounterSelect [facility]-12-2023 Miscellaneous Notes* Telephone Encounter - Joon Lopez MD - 05/06/2023 1:19 PM EDT The following approved medication requests have been [...] (Pain/muscle spasms). Authorizing Provider: JOON LOPEZ MD Robjanae listed as not on formulary but might not be expensive since generic and might be on GoodRx. Did not tolerated tizanidine. Not much else for muscle relaxants. * Telephone Encounter - Carolina Kuo LPN - 05/05/2023 11:57 AM EDT Last office visit: 04/16/23 Next appointment scheduled: 06/22/23 * Telephone Encounter - Ira Chicas - 05/04/2023 12:15 PM EDT Patient is calling requesting a refill of the oxyCODONE-acetaminophen (PERCOCET) 5-325 mg tablet for back pain she states the flexeril does not help. Please advise the patient as she uses [facility] in [place] documented in this encounterSelect Medical Specialty [facility] [place]06-22-2023 History of Present illness Narrative* Trini Tang APRN.WILDLAND FIREFIGHTER - 04/16/2023 7:11 AM EDT SUBJECTIVE: SPIROMETRY Never done SHINGRIX VACCINE(1 of [...] OAC, PPM, states seen last week. Cardiology: [facility] Bleeding difficulties: no DIABETES MELLITUS: She reports 1 blood sugar of 100 when she took metformin and did not eat as muchas she usually does. Without report ofexcessive thirst [...] 03/25/2022 6.0 ) She reports going to [place] for eye exams. Does not have a general car supervisor yard currently. No complaints with her feet. Declines [...] mg capsule Take 1 capsule by mouth twicedaily. Take as directed for UTI atorvastatin (LIPITOR) 10 mg tablet Take 1 tablet by mouth once daily. warfarin (COUMADIN) 5 mg tablet Take 1 tablet by mouth once daily. gabapentin (NEURONTIN) 300 mg capsule Take 2 capsules by mouth daily at bedtime AND 1 capsule everymorning. Do all this for 180 days. blood [...] hours as needed for wheezing/shortness of breath. 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) blood sugar diagnostic (RELION PRIME TEST [...] Right shoulder s/p fall with reduction at [facility] Type II or unspecified type diabetes [...] - ICD9: 250.00, ICD10: E11.9 Trini Tang APRN.WILDLAND FIREFIGHTER Keep 3 mo follow up MD Trini Mcgraw APRN.CNS Medical Decision Making: Problems: Low: Acute, uncomplicated illness or injury Risk: Moderate: Drug management Medical Decision Making Level: 3 - Low documented in this encounterSelect Medical Specialty [facility] [place]06-21-2023 Miscellaneous Notes* Telephone Encounter - Yuko Ordonez RN - 04/15/2023 3:10 PM EDT Patient call in for back pain which causes patient to be short of breath. Patient states that back pain is chronic and happens every time weather changes. Patient states that breathing treatments help. Nurse Triage assessment completed with protocol recommending for disposition of See PCP in 2 weeks.Patient advised to come in to see provider [...] out of chair anyways. Protocols used: Chest [id number], Breathing [id number] documented in this encounterSelect Medical Specialty Hospital [facility] [place]06-09-2023 History of Present illness Narrative* Joon Lopez MD - 04/03/2023 12:33 PM EDT This note was created using Hello [employer]ter. Subjective Keisha Red is a 78 year [...] toe--sandal edge pushes up on lateral part ofthe pinky toe. Has BP cuff at home. [...] Right shoulder s/p fall with reduction at [facility] Type II or unspecified type diabetes [...] mouth daily at bedtime AND 1 capsule everymorning. Do all this for 180 days. blood [...] hours as needed for wheezing/shortness of breath. 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) blood sugar diagnostic (RELION PRIME TEST [...] Height as of 01/07/22: 167.6 cm (5' 6). Weight as of this encounter: 91.6 kg [...] content normal. Judgment: Judgment normal. Labs from [facility] ER evaluation reviewed. Assessment and Plan [...] without hematuria, site unspecified N39.0 nitrofurantoin monohydrate andmacrocrystal (MACROBID) 100 mg capsule Gets confusion when gets UTI. 3. Strain of neck muscle, subsequent encounter S16.1XXD 4. Primary hypertension I10 COMP METABOLIC PANEL CBC LIPID PANEL BASIC 5. Contusion of left hip, subsequent encounter S70.02XD doing better now after fell at home when had UTI 6. Mixed hyperlipidemia E78.2 LIPID PANEL BASIC 7. Atrial flutter, unspecified type (HCC) I48.92 8. Pacemaker Z95.0 9. Essential hypertension I10 10. Mild intermittent asthma without complication J45.20 11. RAMESH (obstructive sleep apnea) G47.33 12. 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 Anticoagulated on Coumadin Z79.01 14. Pulmonary hypertension (HCC) I27.20 Follows with [facility] pulmonology Above issues addressed with patient. [...] the date of the service which included [id number] patient care, completing clinical documentation, performing a medically appropriate examination, counseling and educating the patient/family/caregiver, ordering medications, tests, or procedures, and communicating results to the patient/family/caregiver. Joon Lopez MD documented in this encounterSelect Medical Specialty [facility] [place]06-06-2023 Instructions* Patient Instructions* Whitney Hammond APRN.CNP - 03/31/2023 9:27 AM EDT Rest. Ice or heat. Take muscle relaxer as needed. Can use tylenol or the percocet as needed. Do not exceed 3000 mg of tylenol in 24 hours. Try some gentle stretches. Update us with your appointment on Thursday, if still having a lot of issues then we can try a steroid. documented in this encounterSelect Medical Specialty [facility] [place]06-06-2023 History of Present illness Narrative* Whitney Hammond APRN.RADAR ENGINEERING TEACHER - 03/31/2023 9:16 AM EDT Images from the original note were not [...] a little at times. Alleviated some with sometopical creams. Aggravated with nothing specific, just there. [...] mouth daily at bedtime AND 1 capsule everymorning. Do all this for 180 days. metFORMIN ER (GLUCOPHAGE XR) 500 mg 24 hr tablet Take 2 tablets by mouth twice daily with meals. albuterol HFA (PROAIR HFA) 90 mcg/actuation inhaler Inhale 2 Puffs as instructed every 4 hours as needed for wheezing/shortness of breath. 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) diclofenac (VOLTAREN ARTHRITIS PAIN) 1 % [...] All prescriptions have been APPROPRIATELY filled. No suspiciousactivity was identified. 03/31/2023 by Whitney Hammond APRN.CNP - OXYCODONE-ACETAMINOPHEN 5 MG-325 MG TABLET [...] from today's visit and in agreement with treatmentplan. Questions answered. Agrees to call the office if questions, concerns of issues with acute symptoms not improving or if they worsen. Return if symptoms worsen or fail to improve, for Keep next scheduled appointment.. Whitney Hammond APRN-DOMINGO documented in this encounterSelect Medical Specialty [facility] [place]06-01-2023 Miscellaneous Notes* Telephone Encounter - Taylor Ruffin RN - 03/26/2023 5:27 PM EDT Patient has been identified by name and [...] you. Taylor Ruffin RN documented in this encounterSelect Medical Specialty [facility] [place]03-03-2023 Miscellaneous Notes* Telephone Encounter - Sandy Nunez LPN - 12/26/2022 3:51 PM EST Electronic PA completed for cyclobenzaprine. This was approved form 12/12/22 to 12/27/23. documented in this encounterSelect Medical Specialty [facility] [place]03-03-2023 History of Present illness Narrative* Joon Lopez MD - 12/26/2022 11:55 AM EST This note was created using Surfkitchenriter. Subjective Keisha Red is a 77 year [...] with patient, and I recommended no further interventionat this time. 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 Agudelo Dizziness and giddiness Muscle spasm Obesity, unspecified Palpitations Shoulder dislocation 12/06/11 Right shoulder s/p fall with reduction at [facility] Type II or unspecified type diabetes mellitus without mention of complication, not stated as uncontrolled Unspecified asthma(493.90) Unspecified essential hypertension Current Outpatient Medications Medication Sig warfarin (COUMADIN) 5 mg tablet Take 1 tablet by mouth once daily. gabapentin (NEURONTIN) 300 mg capsule Take 2 capsules by mouth daily at bedtime AND 1 capsule everymorning. Do all this for 180 days. blood [...] hours as needed for wheezing/shortness of breath. 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) blood sugar diagnostic (RELION PRIME TEST [...] Height as of 01/07/22: 167.6 cm (5' 6). Weight as of this encounter: 90.3 kg [...] lifestyle changes for effective weight loss as wellas control of DM, and control of BP and lipids. Weight starting to come back down. Went back up butnot back to where was 10 years ago. Stable with control of pain with having a few pills to treat acute flare ups of pain . No signs of diversion or abuse of medication(s); no adverse effects. Continue present management. Follow up withortho or pain management as needed. Joon Lopez MD documented in this encounterCleveland [id number] History of Present illness Narrative* Daron Singh MD - 12/04/2022 11:14 AM EST Patient presents with: Urinary Frequency: With pressure [...] mouth daily at bedtime AND 1 capsule everymorning. Do all this for 180 days. blood [...] hours as needed for wheezing/shortness of breath. 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) blood sugar diagnostic (RELION PRIME TEST [...] kg (204 lb 9.6 oz) SpO2 97% BMI33.02 kg/m PHYSICAL EXAM: GEN: NAD HEENT: EOMI, [...] Right shoulder s/p fall with reduction at [facility] Type II or unspecified type diabetes [...] month. Daron Singh MD documented in this encounterSelect Medical Specialty [facility] [place]02-09-2023 Miscellaneous Notes* Telephone Encounter - Trini Tang APRN.WILDLAND FIREFIGHTER - 12/04/2022 8:55 AM EST noted, agree with urgent care * Telephone Encounter - Tamy Jewels SHOOK - 12/04/2022 8:26 AM EST Patient calling she is noticing she is voiding smaller amounts, and burning with urination and has frequency for several hours each day. Aware PCP is out of office today and patient can not make the appt time offered for SUBSTATION SUPERVISOR. Advised patient that she can [facility] for [facility] tosee if she has UTI. Patient plans to do that today. documented in this encounterSelect Medical Specialty Hospital [facility] [place]01-26-2023 Miscellaneous Notes* Telephone Encounter - Cecilia Rojo Pss - 11/20/2022 9:43 AM EST Patient has been identified by name and date of : Yes Requested Prescriptions Pending Prescriptions Disp Refills warfarin (COUMADIN) 5 mg tablet 90 tablet 3 Sig: Take 1 tablet by mouth once daily. CARL-09/25/22 Labs-10/16/21 NOV-12/26/22 med filled 11/22/21 RX INSTRUCTIONS: Patient aware RX will be sent to pharmacy. No need to notify patient. Cecilia Rojo Pss documented in this encounterSelect Medical Specialty [facility] [place]11-21-2022 Miscellaneous Notes* Telephone Encounter - Joon Lopez MD - 09/15/2022 7:16 PM EST Last filled February. Uses med sparingly for severe pain. The following approved medication requests have been transmitted electronically. Requested Prescriptions Signed Prescriptions Disp Refills oxyCODONE-acetaminophen (PERCOCET) 5-325 mg tablet 21 tablet 0 Sig: Take 1 tablet by mouth every 8 hours as needed for pain for up to 7 days. Authorizing Provider: JOON LOPEZ MD * Telephone Encounter - Omaira De Leon - 09/15/2022 8:43 AM EST Patient has been identified by name and date of : Yes Requested Prescriptions Pending Prescriptions Disp Refills oxyCODONE-acetaminophen (PERCOCET) 5-325 mg tablet Sig: Last filled February RX INSTRUCTIONS: had back muscle spasms last night bad. Patient aware RX will be sent to pharmacy. No need to notify patient. Omaira De Leon documented in this encounterSelect Medical Specialty [facility] [place]10-03-2022 Miscellaneous Notes* Telephone Encounter - Tamy Donis LPN - 07/28/2022 9:03 AM EDT Patient calling asking for new glucose meter, one she had stopped working. She does not know which meter is covered by her insurance. Pending generic meter, strips, lancets to file. Patient uses [facility] for her pharmacy. Aware PCP is out [...] you. Tamy Donis LPN documented in this encounterSelect Medical Specialty Hospital [facility] [place]09-06-2022 History of Present illness Narrative* Joon Lopez MD - 07/01/2022 11:45 AM EDT This note was created using Hello [employer]. Subjective Keisha Red is a 77 year [...] Right shoulder s/p fall with reduction at [facility] Type II or unspecified type diabetes [...] hours as needed for wheezing/shortness of breath. 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) gabapentin (NEURONTIN) 300 mg capsule Take 2 capsules by mouth daily at bedtime AND 1 capsule everymorning. Do all this for 180 days. blood [...] capsules by mouth three times daily as neededfor cough. (Patient not taking: Reported on 07/01/2022) [...] sleep. Joon Lopez MD documented in this encounterSelect Medical Specialty [facility] [place]08-23-2022 Miscellaneous Notes* Telephone Encounter - Hilaria Avina RN - 06/17/2022 1:37 PM EDT Daughter phoned to report patient is going back to [facility] ER. Reports something is not right. Daughteris on her way to patient's home. * Telephone Encounter - Trini Tang APRN.CNS - 06/17/2022 1:23 PM EDT Check for ER notes for upcoming visit. Should return to ER if severe symptoms or concerns prior to visit with Joon Lopez MD. * Telephone Encounter - Maddie Rojo LPN - 06/17/2022 12:24 PM EDT FYI: Pt's daughter Brooke called in to let you know pt went to ER last night 06-16-22 with confusion. Per daughter pt's urine was tested and there was no infection. Will keep apt tomorrow 06/18/[address] Lopez. Pt still not feeling well. Maddie Rojo LPN documented in this encounterSelect Medical Specialty Hospital [facility] [place]08-22-2022 Miscellaneous Notes* Telephone Encounter - Erin Redd RN - 06/16/2022 8:53 PM EDT Daughter calling, mother seems to be having [...] AND [3] new-onset Protocols used: Confusion - [id number] documented in this encounterSelect Medical Specialty [facility] [place]07-19-2022 Miscellaneous Notes* Telephone Encounter - Xi Worley APRN.CNP - 05/13/2022 10:18 AM EDT Noted. Xi Worley APRN.DOMINGO * Telephone Encounter - Genevieve Lopez MA - 05/13/2022 9:36 AM EDT x3 attempt. Unable to reach patient. Contacted DDM William & confirmed with inorganic chemical technician patient picked up medication 05/11/22 @ 12:02 PM. Reached out to EC daughter Dian Sullivan. Results given to daughter & confirmed patient has started TX medications. Daughter states patient is starting to do/sound a lot better. Will close TE at this time. Genevieve Lopez MA * Telephone Encounter - Curtis Yi LPN - 05/09/2022 4:45 PM EDT Phoned pt again, no answer, left message to return call to office. Curtis Yi LPN * Telephone Encounter - Xi Worley APRN.CNP - 05/09/2022 4:41 PM EDT Did patient receive this message? Xi Worley APRN.DOMINGO * Telephone Encounter - Miguelina Olmstead LPN - 05/07/2022 3:33 PM EDT TC to pt. LM to call office, ask for triage nurse to get results. Miguelina Olmstead LPN * Telephone Encounter - Xi Worley APRN.CNP - 05/07/2022 3:31 PM EDT Lets go ahead and cover her with antibiotics. I went ahead and sent doxy into the pharmacy. I also sent some tessalon perles for cough -- she can do 1-2 of these three times daily as needed for cough. Xi Worley APRN.CNP * Telephone Encounter - Curtis Yi LPN - 05/07/2022 9:52 AM EDT Xi Worley APRN.CNP 05/06/22 5:35 PM Note Can please let patient know that the chest xray did not show any pneumonia. Xi Worley APRN.CNP * Telephone Encounter - Ira Peralta RN - 05/07/2022 8:47 AM EDT Patient returned call and given result. Patient states she is about the same as when seen in office yesterday. She states her wheezing and coughing is getting to her and would like to know what cough medicine is recommended for her to take? Please advise. Thank you. * Telephone Encounter - Xi Worley APRN.CNP - 05/07/2022 8:02 AM EDT Can please let patient know that her COVID test was negative. Please see how patient is feeling today. Xi Worley APRN.CNP documented in this encounterSelect Medical Specialty [facility] [place]07-13-2022 Miscellaneous Notes* Telephone Encounter - Curtis Yi LPN - 05/07/2022 9:52 AM EDT See other TE. Curtis Yi LPN * Telephone Encounter - Xi Worley APRN.CNP - 05/06/2022 5:35 PM EDT Can please let patient know that the chest xray did not show any pneumonia. Xi Worley APRN.CNP * Telephone Encounter - Elvia Orellana LPN - 05/06/2022 4:26 PM EDT Pt calling for results from CXR that was completed this am. Elvia Orellana LPN documented in this encounterSelect Medical Specialty [facility] [place]07-12-2022 Miscellaneous Notes* Telephone Encounter - Xi Worley APRN.CNP - 05/06/2022 9:17 AM EDT See office notes. Xi Worley APRN.CNP * Telephone Encounter - Maddie Rojo LPN - 05/06/2022 8:05 AM EDT Pt called in and states wheezing, coughing x 3 days. No apt available today with pcp/team/Int med. Apt booked with FP. Maddie Rojo LPN documented in this encounterSelect Medical Specialty [facility] [place]07-12-2022 Instructions* Patient Instructions* Xi Worley APRN.CNP - 05/06/2022 9:05 AM EDT 1. Get the xray. 2. Start the prednisone -- 2 pills daily X 5 days. 3. Watch sugars. Let us know if getting high. 4. Push fluids. 5. Let us know if not improving or getting worse. documented in this encounterSelect Medical Specialty [facility] [place]07-12-2022 History of Present illness Narrative* Xi Worley APRN.CNP - 05/06/2022 8:49 AM EDT This is a 77 year old female [...] Right shoulder s/p fall with reduction at [facility] Type II or unspecified type diabetes [...] hours as needed for wheezing/shortness of breath. 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) gabapentin (NEURONTIN) 300 mg capsule Take 2 capsules by mouth daily at bedtime AND 1 capsule everymorning. Do all this for 180 days. blood [...] as needed for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 SOB Verified 05/09/23 09:51 Sulfa (Sulfonamide Allergy Severe Hives Verified 05/09/23 09:51 Antibiotics) Family History Mother Diabetes Father CAD (coronary artery disease) Sister Lung cancer Son Kidney stone Surgical History History of appendectomy History of kidney surgery Presence of permanent cardiac pacemaker (04/01/19) Social History household members: none housing: house number of children: 3 current occupational status: retired Smoking Status: Never smoker alcohol intake: never substance use type: does not use what type of physical activity do you participate in: none do you feel safe at home: Yes ROS ROS ED ROS Narrative Denies. Review of Systems ROS Unobtainable: Denies due to encephalopathy Constitutional Constitutional ED: Denies chills or fever(s) Eyes Eyes: Denies blurry vision ENT ENT ED: Denies ear pain Cardiovascular Cardiovascular: Denies chest pain Respiratory/Chest Respiratory/Chest: Denies cough or dyspnea Gastrointestinal Gastrointestinal: Denies abdominal pain Genitourinary Genitourinary ED: Denies dysuria or hematuria Musculoskeletal Musculoskeletal: Denies arthralgias Integumentary Denies abscess Neurologic Neurologic: Denies headache(s) Psychiatric Psychiatric: Denies anxiety Endocrine Endocrinology: Denies cold intolerance Hematologic/Lymphatic Hematologic/Lymphatic: Reports none Allergic/Immunologic Allergic/Immunologic ED: Denies mouth swelling or tongue swelling EXAM Physical Exam Narrative Exam Narrative: Today female no acute distress. Vital signs stable afebrile. HEENT exam unremarkable. Neck nontender no lymphadenopathy. Lungs clear to auscultation bilaterally. Heart regular rhythm no murmur rate about 80. Chest were nontender. Abdomen soft nontender. Moving all 4 extremities. Neurovascular intact. Top of her left foot is red and tender consistent with cellulitis. There is a quarter to half dollar sized wound on the top of her foot just proximal to the great toe and second toe in the webspace consistent with second-degree burn. There is some necrotic skin. No pus. No crepitance. No discharge. Foot is neurovascular intact. She is able to wiggle her toes. There is no significant swelling. The cellulase skin on the top is tender to touch. Bottom of the foot is unremarkable. There is no lymphangitic streaking. No inguinal lymphadenopathy. She has normal range of motion to her foot and ankle, knee and hip. normal DP pulse. Const Vital Signs: 05/09/23 09:49 05/09/23 10:07 Temperature 97.9 F Temperature Source Temporal Pulse Rate 82 Respiratory Rate 14 Respiratory Effort Normal Blood Pressure 148/78 H Blood Pressure Mean 101 Pulse Ox 99 Oxygen Delivery Method Room Air Positive well nourished and well developed; Negative for contractures or unkempt General Appearance ED: well developed and NAD; Negative for unkempt, contractures, cyanotic, diaphoretic or pallor HEENT Reports moist mucous membranes; Denies dry mucous membranes Negative for trauma or tenderness Mouth ED: No dry mucous membranes Mouth: No dry mucous membranes Eyes PERRL and EOMs intact bilaterally General Eye ED: Negative for pale conjunctiva, scleral icterus or other Neck no lymphadenopathy, supple and no JVD General: Negative for tenderness Chest Wall inspection of chest normal and palpation of chest normal Chest: Negative for other Resp normal respiratory effort and clear to auscultation bilaterally Effort and Inspection: Negative for retractions Auscultation: Negative for rales, rhonchi or wheezes Cardio regular rate, regular rhythm, S1 normal heart sound, S2 normal heart sound and no murmurs Rate: Negative for bradycardia or tachycardic Rhythm: Negative for abnormal rhythm GI normal to inspection, nondistended, normoactive bowel sounds, non-tender, non-distended and no masses Inspection: Negative for abdominal distention Auscultation: normoactive bowel sounds Palpation: soft; Negative for tender or guarding Bladder / Kidney Exam: No other Back/Spine no CVA tenderness Extremity normal to inspection Extremity Narrative: Exam. The left foot just proximal to the great toe and second toe there is a quarter half-dollar sized wound from a burn. Some necrotic tissue. Surroundingredness consistent with cellulitis.Tender to palpation. Neurovascularly intact. No significant swelling. No lymphangitic streaking. General Extremety ED: Yes tenderness Neuro oriented x3 and CN's II-XII intact bilaterally Sensorium / Orientation: alert; Negative for orientation impaired, lethargic or stuporous Motor Exam: strength 5/5 throughout; Negative for general weakness Psych mental status grossly normal Appearance: Negative for unkempt Attitude: No agitated Mood & Affect: Negative for depressed or anxious Skin no rashes or lesions noted and No no wounds Skin Narrative: Lysed on the left foot. Burn top of the left foot. General Skin Exam: elasticity normal; Negative for jaundice or pallor Rashes: No rashes noted MDM MDM MDM Narrative Medical decision making narrative: 78-year-old diabetic female out of a secondary burn on top of her left foot not infected. It is limited to the top of the foot. There is no lymphangitic streaking. No systemic symptoms nor fever. She was started on Keflex 504 timesa day. Given first dose here. For 10 days. Sent to her pharmacy. She understands if it gets worse to return. Her blood sugars been running well. She does not need any imaging or labs. History & Record Review Discussion w/independent historian: Patient and Family Additional record(s) reviewed:: Prior inpatient record, Prior outpatient record,Prior ED visit and Prior labs Discharge Plan Triage Chief Complaint: Burn ED Provider: Abdifatah Lemon Dx/Rx/DC Orders Clinical Impression: Second degree burn, History of diabetes mellitus, Cellulitis of foot Instructions: ED Cellulitis Prescriptions: New cephalexin 500 mg capsule 500 mg PO Q6 10 Days Qty: 40 0RF No Action oxycodone-acetaminophen 5-325 mg tablet 1 tab PO DAILY PRN (Reason: pain) (DME) TENS unit electrodes Pad See Rx Instructions .ROUTE .MEDSUPPLY Qty: 2 Rx Instructions: As directed albuterol sulfate 90 mcg/actuation HFA aerosol inhaler 2 puff INHALATION Q4H PRN (Reason: shortness of breath or wheezing) Qty: 8.5 6RF Rx Instructions: administer with spacer Symbicort 160-4.5 mcg/actuation HFA aerosol inhaler 2 puff INHALATION BID Qty: 10.2 11RF prednisone 20 mg tablet 60 mg PO QDAY Qty: 15 0RF Rx Instructions: administer with food or milk warfarin 5 MG tablet 5 mg PO DAILY Protocol: Dose Management Condition: Thursday Dose/Route: 5 mg Instruction: 1 x 5 mg tablet Condition: Thursday Dose/Route: 5 mg Instruction: 1 x 5 mg tablet Condition: Thursday Dose/Route: 5 mg Instruction: 1 x 5 mg tablet Condition: Thursday Dose/Route: 5 mg Instruction: 1 x 5 mg tablet Condition: Dose/Route: 2.5 mg Instruction: 0.5 x 5 mg tablets Condition: Thursday Dose/Route: 2.5 mg Instruction: 0.5 x 5 mg tablets Condition: Thursday Dose/Route: 5 mg Instruction: 1 x 5 mg tablet Protocol Text: Adjustment Start Date: Thursday03/31/23 INR Value: 2.2 INR Date: 03/31/23 Recheck Date: 04/28/23 Rx Instructions: 5 mg. , , THU atorvastatin 10 MG tablet 10 mg PO QHS gabapentin 300 mg capsule 600 mg PO QHS cyclobenzaprine 10 mg Tablet 5 - 10 mg PO BID PRN (Reason: Spasms) metformin 500 mg tablet extended release 24 hr 1,000 mg PO BID Patient Comments: Take 2 tablets by mouth twice daily with meals. magnesium oxide 400 mg magnesium Tablet 400 mg PO DAILY gabapentin 300 mg capsule 300 mg PO BREAKFAST Patient Comments: Take 2 capsules by mouth daily at bedtime AND 1 capsule every morning. Rx Instructions: 300 mg orally; cephalexin [cephalexin] 500 mg capsule 500 mg PO Q6 Qty: 28 0RF Primary Care Provider: Jono Lopez Referrals: Joon Lopez MD [Primary Care Provider] - 3-5 Days if not improving Activity Restrictions/Additional Instructions: Elevate the leg to decrease pain and swelling The antibiotic Keflex 1 pill 4 times a day for the next 10 days till gone. Return if obvious to doctor if this is looking worse such as fever, streaks up your leg, the foot looks a lot worse or you feel worse. The antibiotic over thenext several days should start working against the infection. Tylenol Motrin for pain. Disposition Disposition: Home, Self Care What to do if you have Problems For any increased pain, shortness of breath, bleeding, nausea or vomiting, chestpain, or any unexpected problems, contact your Primary Care Provider. Call [facility] ([phone]) or report to the closest Emergency Room. Call 911 if necessary. 05/09/23 1054 <Electronically signed by Abdifatah Lemon MD> Cosigner Signature (if applicable): CC: Dr. Joon Lopez MD ~ Signed [facility] Work Phone: Discharge summary Author Freddy Robert [facility] October 02, 2023 1:03am Note Date/Time October 02, 2023 1 2:05am [facility] Medical Records Department [address] [place] [id number] Emergency Department Summary 10/02/23 MR#: [id number] Acct: [id number] Name: KEISHA RED Rep #:[id number] : 1945 78 From: Freddy Robert MD PCP: Dr. Joon Lopez MD Status:RE G ER Location: ED HPI History of Present Illness Chief Complaint: Dizziness Detail of Chief Complaint: Feeling woozy after taking first dose of Zanaflex Informant: patient and family (Blood sugar at the time of onset was 165) Onset/Context/Timing Onset: Hours Context: Sudden Onset Timing: Continuous Quality: Feeling woozy . Location: Home Current Severity: Mild Maximum Severity: Moderate Worsened by: Standing up Relieved by: Nothing Associated Symptoms Associated Symptoms: Nausea Narrative Narrative: Patient is a 78-year-old woman with history of chronic back pain. She has a TENS unit in place. She is on opiate analgesia. She was recently prescribed Zanaflex and took her first dose at night. She feels like she is off. She denies headache, visual, ocular auditory symptoms. She specifically denies double vision. She denies ringing or ears or decreased hearing. Denies troublewith speech or swallowing. She denies cardiac or respiratory symptoms. She does endorse mild nausea without vomiting or diarrhea. She denies abdominal pain. She denies paresthesia, anesthesia or motor weakness. 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 Contact dermatitis and other eczema COVID-19 Cystitis DDD (degenerative disc disease) Diabetes mellitus Encephalopathy acute Essential hypertension Hx of bladder infections Hyperlipidemia Hypersomnia USP (current) use of anticoagulants Obesity RAMESH (obstructive sleep apnea) Other secondary pulmonary hypertension Palpitations Pneumonia Shoulder dislocation Home Medications warfarin 5 mg tablet 5 mg PO DAILY blood thinner 11/18/18 [History Last Taken 06/15/22] atorvastatin 10 mg tablet 10 mg PO QHS cholesterol 12/11/19 [History Last Taken 06/15/22] TENS unit electrodes #2 ea 07/11/20 [History Last Taken Unknown] oxycodone-acetaminophen 5 mg-325 mg tablet 1 tab PO Q8H PRN pain 12/07/20 [History Last Taken 06/15/22] cyclobenzaprine 10 mg tablet 5 - 10 mg PO BID PRN Spasms 06/17/22 [History Last Taken 06/16/22] magnesium oxide 400 mg PO DAILY supplement 06/17/22 [History Last Taken 06/16/22] metformin 500 mg tablet,extended release 24 hr 1,000 mg PO BID DM 06/17/22 [History Last Taken 06/16/22] gabapentin 300 mg capsule 300 mg PO BREAKFAST nerve pain 08/04/22 [History Last Taken Unknown] gabapentin 300 mg capsule 600 mg PO QHS Neuropathy 08/04/22 [History Last Taken Unknown] budesonide-formoterol HFA 160 mcg-4.5 mcg/actuation aerosol inhaler (Symbicort) 2 puff inhalation BID asthma #10.2 grams 10/14/22 [Rx Last Taken Unknown] albuterol sulfate 90 mcg/actuation aerosol inhaler 2 puff inhalation Q4H PRN shortness of breath or wheezing #8.5 grams 05/24/23 [Rx Last Taken Unknown] Allergy/AdvReac Type Severity Reaction Status Date / Time amoxicillin Allergy Severe Hives Verified 10/01/23 23:32 aspirin Allergy Severe Hives, SOB Verified 10/01/23 23:32 Sulfa (Sulfonamide Allergy Severe Hives Verified 10/01/23 23:32 Antibiotics) Family History Mother Diabetes Father CAD (coronary artery disease) Sister Lung cancer Son Kidney stone Surgical History History of appendectomy History of kidney surgery Presence of permanent cardiac pacemaker (04/01/19) Social History household members: none housing: house number of children: 3 current occupational status: retired Smoking Status: Never smoker alcohol intake: never substance use type: does not use what type of physical activity do you participate in: none do you feel safe at home: Yes ROS ROS ED Constitutional Constitutional ED: Denies chills, fever(s), subjective, sweats or weight loss Eyes Eyes: Denies blurry vision, change in vision or diplopia ENT ENT ED: Denies rhinorrhea or sore throat Cardiovascular Cardiovascular: Denies chest pain or palpitations Respiratory/Chest Respiratory/Chest: Denies cough, dyspnea or dyspnea on exertion Gastrointestinal Gastrointestinal: Reports nausea; Denies abdominal pain or diarrhea Genitourinary Genitourinary ED: Denies dysuria, hematuria or urinary frequency Musculoskeletal Musculoskeletal: Reports back pain; Denies arthralgias, myalgias or neck pain Integumentary Denies rash Neurologic Neurologic: Denies headache(s), paresthesias or weakness Psychiatric Psychiatric: Denies anxiety Hematologic/Lymphatic Hematologic/Lymphatic: Reports systems reviewed and no addt'l complaints, exceptas documented EXAM Physical Exam Const Vital Signs: 10/01/23 23:29 10/01/23 23:32 10/02/23 00:27 Temperature 98 F Temperature Source Temporal Pulse Rate 67 Pulse Rate [Sitting (for 1 minute prior to obtaining)] 63 Pulse Rate [Standing (for 1 minute prior to obtaining)] 62 Respiratory Rate 18 Respiratory Effort Normal Non-Labored Respiratory Pattern Normal Blood Pressure 144/84 H Blood Pressure [Lying] 103/65 Blood Pressure [Sitting (for 1 minute prior to obtaining)] 102/66 Blood Pressure [Standing (for 1 minute prior to obtaining)] 98/62 Blood Pressure Mean 104 Blood Pressure Mean [Lying] 77 Blood Pressure Mean [Sitting (for 1 minute prior to obtaining)] 78 Blood Pressure Mean [Standing (for 1 minute prior to obtaining)] 74 Pulse Ox 97 Oxygen Delivery Method Room Air Positive well nourished, well developed and obese Constitutional Narrative: Patient does appear pale. General Appearance ED: well developed, NAD and pallor; Negative for cyanotic or diaphoretic Nutritional Appearance: obese HEENT Reports moist mucous membranes HEENT Narrative: Head is atraumatic and normocephalic. Ears are normal. TMs are normal. Nares patent. Posterior pharynx is normal. Uvula is midline. Eyes PERRL and EOMs intact bilaterally Eyes Narrative: There is no nystagmus. General Eye ED: Yes pale conjunctiva; Negative for scleral icterus Neck no lymphadenopathy, supple and no JVD Chest Wall inspection of chest normal and palpation of chest normal Resp normal respiratory effort and clear to auscultation bilaterally Cardio regular rate, regular rhythm, S1 normal heart sound, S2 normal heart sound and no murmurs GI normal to inspection, nondistended, normoactive bowel sounds, non-tender, non-distended and no masses; Negative for hepatosplenomegaly Auscultation: normoactive bowel sounds Back/Spine no CVA tenderness Extremity normal to inspection Extremity Narrative: There is no clubbing or cyanosis noted. General Extremety ED: Negative for edema or tenderness General Extremity: Negative for edema Neuro oriented x3, CN's II-XII intact bilaterally and no sensory deficits noted Neuro Narrative: There is no dysmetria. Sensorium / Orientation: alert Motor Exam: strength 5/5 throughout Psych mental status grossly normal Skin no rashes or lesions noted, no wounds and No skin turgor normal General Skin Exam: pallor; Negative for elasticity normal or jaundice MDM MDM MDM Narrative Medical decision making narrative: Suspect patient's symptoms are due to the Zanaflex. It is on the beers list. Because patient appears pale and conjunctive is pale CBC was obtained to evaluate for anemia. Prior records were reviewed. History & Record Review Additional record(s) reviewed:: Prior outpatient record (Podiatry for diabetic foot related issues), Prior ED visit (Multiple issues) and Prior labs Lab Data Attestation: I reviewed the patient's lab results. Lab results narrative: CBC is remarkable for mild anemia. Hemoglobin is approximately 1 to 2 g lower than prior. Most recent CBC was obtained April 2021. Indices are normal. Suspect this is chronic anemia due to chronic illness. Labs: Laboratory Results - last 24 hr 10/02/23 00:01 WBC 4.1 L RBC 3.68 L Hgb 11.8 L Hct 36.1 L MCV 98.1 MCH 32.1 H MCHC 32.7 RDW Std Deviation 46.4 H RDW Coeff of Jason 12.9 Plt Count 107 L MPV 10.3 Immature Gran % (Auto) 0.700 Neut % (Auto) 59.6 Lymph % (Auto) 26.2 Bureau % (Auto) 7.6 Eos % (Auto) 4.9 Baso % (Auto) 1.0 Absolute Neuts (auto) 2.4 Absolute Lymphs (auto) 1.07 Nucleated RBC % 0 Treatment and Re-Evaluation :: Since patient does not have significant anemia and is not orthostatic and symptoms started after she took Zanaflex suspect this is adverse reaction to theZanaflex. She was instructed not to take any additional doses. Discharge Plan Triage Chief Complaint: Dizziness ED Provider: Freddy Robert Dx/Rx/DC Orders Clinical Impression: RAMESH (obstructive sleep apnea), Type 2 diabetes mellitus, Anemia, unspecified, Essential hypertension, Adverse reaction to drug in therapeutic use Instructions: ED Anemia, Type Not Specified (Adult), ED Drug Reaction, Other Prescriptions: No Action oxycodone-acetaminophen 5-325 mg tablet 1 tab PO Q8H PRN (Reason: pain) (DME) TENS unit electrodes Pad See Rx Instructions .ROUTE .MEDSUPPLY Qty: 2 Rx Instructions: As directed Symbicort 160-4.5 mcg/actuation HFA aerosol inhaler 2 puff INHALATION BID Qty: 10.2 11RF warfarin 5 MG tablet 5 mg PO DAILY Protocol: Dose Management Condition: Thursday Dose/Route: 2.5 mg Instruction: 0.5 x 5 mg tablets Condition: Thursday Dose/Route: 5 mg Instruction: 1 x 5 mg tablet Condition: Thursday Dose/Route: 5 mg Instruction: 1 x 5 mg tablet Condition: Thursday Dose/Route: 5 mg Instruction: 1 x 5 mg tablet Condition: Dose/Route: 5 mg Instruction: 1 x 5 mg tablet Condition: Thursday Dose/Route: 2.5 mg Instruction: 0.5 x 5 mg tablets Condition: Thursday Dose/Route: 2.5 mg Instruction: 0.5 x 5 mg tablets Protocol Text: Adjustment Start Date: Thursday07/10/23 INR Value: 2.3 INR Date: 07/10/23 Recheck Date: 07/31/23 Rx Instructions: 5 mg. , , THU atorvastatin 10 MG tablet 10 mg PO QHS gabapentin 300 mg capsule 600 mg PO QHS cyclobenzaprine 10 mg Tablet 5 - 10 mg PO BID PRN (Reason: Spasms) metformin 500 mg tablet extended release 24 hr 1,000 mg PO BID Patient Comments: Take 2 tablets by mouth twice daily with meals. magnesium oxide 400 mg magnesium Tablet 400 mg PO DAILY gabapentin 300 mg capsule 300 mg PO BREAKFAST Patient Comments: Take 2 capsules by mouth daily at bedtime AND 1 capsule every morning. Rx Instructions: 300 mg orally; albuterol sulfate 90 mcg/actuation HFA aerosol inhaler 2 puff INHALATION Q4H PRN (Reason: shortness of breath or wheezing) Qty: 8.5 6RF Rx Instructions: administer with spacer Primary Care Provider: Joon Lopez Referrals: Joon Lopez MD [Primary Care Provider] - 3-5 Days Disposition Disposition: Home, Self Care What to do if you have Problems For any increased pain, shortness of breath, bleeding, nausea or vomiting, chestpain, or any unexpected problems, contact your Primary Care Provider. Call [facility] ([phone]) or report to the closest Emergency Room. Call 911 if necessary. 10/02/23 0103 <Electronically signed by Freddy Robert MD> Cosigner Signature (if applicable): CC: Dr. Joon Lopez MD ~ Signed [facility] Work Phone: Discharge summary Author Devyn Samaniego [facility] January 22, 2024 7:44am Note Date/Time January 22, 2024 7:4 4am [facility] Medical Records Department [address] [place] [address] Instructions for Home/Discharge Instructions 01/22/24 0743 MR#: [id number] Acct: [id number] Name: KEISHA RED Rep #:[id number] : 1945 78 From: Devyn Samaniego MD PCP: Dr. Joon Lopez MD Status:RE G [facility] Discharge Instructions Diet Discharge Diet: No restrictions Activity Discharge Activity: Return to Normal Activity and May Not Drive (while taking narcotic pain medications.) Dressing / Incision Call your doctor if you observe: Fever of 101 or Higher Follow Up Care Please Follow Up With: Devyn Samaniego MD When: Call [phone] for an appointment Test Results: Test results from this visit will be discussed in further detail at your follow- up appointment, if applicable. Discharge Plan Admission Primary Reason for Your Visit: Ureteroscopy and biopsy Attending Provider: Devyn Samaniego Primary Care Provider: Joon Lopez Discharge Orders/Prescriptions Prescriptions: New ciprofloxacin HCl [Cipro] 500 mg tablet 500 mg PO BID Qty: 10 0RF Continued oxycodone-acetaminophen 5-325 mg tablet 1 tab PO BID PRN PRN (Reason: pain) (DME) TENS unit electrodes Pad See Rx Instructions .ROUTE .MEDSUPPLY Qty: 2 Rx Instructions: As directed albuterol sulfate 90 mcg/actuation HFA aerosol inhaler 2 puff INHALATION Q4H PRN (Reason: shortness of breath or wheezing) Qty: 8.5 6RF Rx Instructions: administer with spacer warfarin 5 MG tablet 5 mg PO MOTUWETHFR Hold Instructions: Hold return resume when INR is 2.5. Follow-up with PCP Protocol: Dose Management Condition: Thursday Dose/Route: 5 mg Instruction: 1 x 5 mg tablet Condition: Thursday Dose/Route: 5 mg Instruction: 1 x 5 mg tablet Condition: Thursday Dose/Route: 5 mg Instruction: 1 x 5 mg tablet Condition: Thursday Dose/Route: 5 mg Instruction: 1 x 5 mg tablet Condition: Dose/Route: 2.5 mg Instruction: 1 x 2.5 mg tablet Condition: Thursday Dose/Route: 2.5 mg Instruction: 1 x 2.5 mg tablet Condition: Thursday Dose/Route: 5 mg Instruction: 1 x 5 mg tablet Protocol Text: Adjustment Start Date: Thursday01/04/24 INR Value: 2.1 INR Date: 01/04/24 Recheck Date: 01/11/24 Rx Instructions: 5 mg. , , THU atorvastatin 10 MG tablet 10 mg PO QHS gabapentin 300 mg capsule 600 mg PO QHS metformin 500 mg tablet extended release 24 hr 1,000 mg PO BID Patient Comments: Take 2 tablets by mouth twice daily with meals. gabapentin 300 mg capsule 300 mg PO BREAKFAST Patient Comments: Take 2 capsules by mouth daily at bedtime AND 1 capsule every morning. Rx Instructions: 300 mg orally; warfarin [Jantoven] 2.5 mg tablet 2.5 mg PO SUSA Hold Instructions: Hold it until INR drops less than 2.5. Resume when INR between 2-2.5.. Protocol: Dose Management Condition: Thursday Dose/Route: 5 mg Instruction: 1 x 5 mg tablet Condition: Thursday Dose/Route: 5 mg Instruction: 1 x 5 mg tablet Condition: Thursday Dose/Route: 5 mg Instruction: 1 x 5 mg tablet Condition: Thursday Dose/Route: 5 mg Instruction: 1 x 5 mg tablet Condition: Dose/Route: 2.5 mg Instruction: 1 x 2.5 mg tablet Condition: Thursday Dose/Route: 2.5 mg Instruction: 1 x 2.5 mg tablet Condition: Thursday Dose/Route: 5 mg Instruction: 1 x 5 mg tablet Protocol Text: Adjustment Start Date: Thursday01/04/24 INR Value: 2.1 INR Date: 01/04/24 Recheck Date: 01/11/24 magnesium 250 mg tablet 250 mg PO DAILY cyclobenzaprine 10 mg tablet 10 mg PO TID PRN PRN (Reason: muscle spasm) Symbicort 160-4.5 mcg/actuation HFA aerosol inhaler 2 puff INHALATION BID Qty: 10.2 11RF Referrals / Follow Up: Devyn Samaniego MD [Med Staff - Active Staff] - Joon Lopez MD [Primary Care Provider] - Disposition Disposition (needs filled in before D/C Order can be placed): Home, Self Care 01/22/24 0744<Electronically signed by Devyn Samaniego MD>Devyn Samaniego MD CC: Dr. Joon Lopez MD ~ Signed [facility] Work Phone: Evaluation + Plan note No data available for this section [facility] Evaluation note* Diagnosis Controlled type 2 [...] ligament, initial encounter [facility]* Diagnosis Controlled type 2 diabetes mellitus [...] ligament, initial encounter documented in this encounter [facility] note* Diagnosis Diabetes mellitus type 2, controlled, [...] Back strain, sequela [facility]* Diagnosis Controlled type 2 diabetes mellitus without complication, without long-term current use of insulin (HCC) documented [facility]* Diagnosis Mild intermittent asthma with acute exacerbation- Primary Unspecified asthma, with exacerbation Viral upper respiratory tract infection Acute upper respiratory infections of unspecified site documented in this encounter [facility] note* Diagnosis Onset Date Resolution Status Asthma chronic Obesity chronic RAMESH (obstructive sleep apnea) chronic Ataxia resolved Confusion resolved [facility] Work Phone: Evaluation note* Diagnosis COVID-19 virus infection- Primary Diarrhea of infectious origin Diarrhea of presumed infectious origin Severe low back pain Lumbago DDD (degenerative disc disease), lumbar Degeneration of lumbar or lumbosacral intervertebral disc Acute pain of left knee Sprain of left knee, unspecified ligament, initial encounter [facility]* Diagnosis DDD (degenerative disc disease), lumbar Degeneration of lumbar or lumbosacral intervertebral disc Acute pain of left knee Sprain of left knee, unspecified ligament, initial encounter Severe low back pain Lumbago [facility]* Diagnosis Onset Date Resolution Status Ataxia resolved Confusion resolved UTI (urinary tract infection) acute Atrial fibrillation chronic Hyperlipidemia chronic Presence of permanent cardiac pacemaker April 01, 2019 chronic S/P ablation of atrial flutter April 01, 2019 resolved Cervical strain, acute acute Atrial fibrillation chronic Hyperlipidemia chronic Presence of permanent cardiac pacemaker April 01, 2019 chronic S/P ablation of atrial flutter April 01, 2019 resolved Presence of permanent cardiac pacemaker April 01, 2019 chronic S/P ablation of atrial flutter April 01, 2019 resolved [facility] Work Phone: Evaluation note* Diagnosis Urinary frequency- Primary documented in this encounter [facility] note* Diagnosis Controlled type 2 diabetes mellitus [...] malignant neoplasms, colon [facility]* Diagnosis Strain of neck muscle, initial encounter- Primary Severe low back pain Lumbago DDD (degenerative disc disease), lumbar Degeneration of lumbar or lumbosacral intervertebral disc Encounter for therapeutic drug monitoring [facility] Diagnosis Back strain, subsequent encounter- Primary [...] [facility] Diagnosis Controlled type 2 diabetes mellitus [...] pulmonary heart diseases [facility]* Diagnosis Cellulitis of foot- Primary Cellulitis and abscess of foot, except toes Partial thickness burn of left foot, subsequent encounter Controlled type 2 diabetes mellitus without complication, without long-term current use of insulin (HCC) [facility]* Diagnosis Back strain, sequela Severe low back pain Lumbago DDD (degenerative disc disease), lumbar Degeneration of lumbar or lumbosacral intervertebral disc [facility] Diagnosis Diabetes mellitus with no complication (HCC)- Primary Type II or unspecified type diabetes mellitus without mention of complication, not stated as uncontrolled documented in this encounter [facility] note* Diagnosis Onset Date Resolution Status Asthma chronic Diabetes mellitus chronic Obesity chronic RAMESH (obstructive sleep apnea) chronic Pulmonary hypertension chron ic Essential hypertension acute Pain in left foot acute Hyperlipidemia chronic Non-pressure chronic ulcer o f other part of left foot with fat layer exposed chronic Obesity chronic Type 2 diabetes mellitus chr onic Atrial fibrillation chronic Hyperlipidemia chronic Presence of permanent cardiac pacemaker April 01, 2019 chronic S/P ablation of atrial flutter April 01, 2019 resolved Essential hypertension acute Pain in left foot acute Diabetes mellitus chronic Hyperlipidemia chronic Non-pressure chronic ulcer o f other part of left foot with fat layer exposed chronic Essential hypertension acute Pain in left foot acute Diabetes mellitus chronic Hyperlipidemia chronic Non-pressure chronic ulcer o f other part of left foot with fat layer exposed chronic [facility] Work Phone: Evaluation note* Diagnosis Onset Date Resolution Status Asthma chronic Diabetes mellitus chronic Obesity chronic RAMESH (obstructive sleep apnea) chronic Pulmonary hypertension chron ic Essential hypertension acute Pain in left foot acute Hyperlipidemia chronic Non-pressure chronic ulcer o f other part of left foot with fat layer exposed chronic Obesity chronic Type 2 diabetes mellitus chr onic Atrial fibrillation chronic Hyperlipidemia chronic Presence of permanent cardiac pacemaker April 01, 2019 chronic S/P ablation of atrial flutter April 01, 2019 resolved Essential hypertension acute Pain in left foot acute Diabetes mellitus chronic Hyperlipidemia chronic Non-pressure chronic ulcer o f other part of left foot with fat layer exposed chronic Essential hypertension acute Pain in left foot acute Diabetes mellitus chronic Hyperlipidemia chronic Non-pressure chronic ulcer o f other part of left foot with fat layer exposed chronic Essential hypertension acute Pain in left foot acute Diabetes mellitus chronic Hyperlipidemia chronic Non-pressure chronic ulcer o f other part of left foot with fat layer exposed chronic [facility] Work Phone: Evaluation note* Diagnosis DDD (degenerative disc disease), lumbar Degeneration of lumbar or lumbosacral intervertebral disc Back Strain, recurrent Sprain of unspecified site of back [facility] Diagnosis Mild intermittent asthma without complication Unspecified asthma [facility] Diagnosis Severe low back pain- Primary [...] [facility] Diagnosis Onset Date Resolution Status Essential hypertension acute Pain in left foot acute Diabetes mellitus chronic Hyperlipidemia chronic Non-pressure chronic ulcer o f other part of left foot with fat layer exposed chronic Essential hypertension acute Pain in left foot acute Diabetes mellitus chronic Hyperlipidemia chronic Non-pressure chronic ulcer o f other part of left foot with fat layer exposed chronic Essential hypertension acute Pain in left foot acute Diabetes mellitus chronic Hyperlipidemia chronic Non-pressure chronic ulcer o f other part of left foot with fat layer exposed chronic [facility] Work Phone: Evaluation note* Diagnosis Onset Date Resolution Status Essential hypertension acute Pain in left foot acute Diabetes mellitus chronic Hyperlipidemia chronic Non-pressure chronic ulcer o f other part of left foot with fat layer exposed chronic Essential hypertension acute Pain in left foot acute Diabetes mellitus chronic Hyperlipidemia chronic Non-pressure chronic ulcer o f other part of left foot with fat layer exposed chronic History of complete heart block acute Presence of permanent cardiac pacemaker April 01, 2019 chronic S/P ablation of atrial flutter April 01, 2019 resolved Asthma chronic RAMESH (obstructive sleep apnea) chronic [facility] Work Phone: Evaluation note* Diagnosis Severe low back pain- Primary Lumbago DDD (degenerative disc disease), lumbar Degeneration of lumbar or lumbosacral intervertebral disc [facility]* Diagnosis Onset Date Resolution Status Essential hypertension acute Pain in left foot acute Diabetes mellitus chronic Hyperlipidemia chronic Non-pressure chronic ulcer o f other part of left foot with fat layer exposed chronic History of complete heart block acute Presence of permanent cardiac pacemaker April 01, 2019 chronic S/P ablation of atrial flutter April 01, 2019 resolved Asthma chronic RAMESH (obstructive sleep apnea) chronic Hydronephrosis, right acute Ureteral mass acute UTI (urinary tract infection) acute [facility] Work Phone: Evaluation note* Diagnosis Urinary incontinence without sensory awareness- Primary Incontinence without sensory awareness Memory deficits Memory loss Dysuria Nocturia more than twice per night Urinary urgency Urgency of urination Atrial flutter, unspecified type ([facility]) Encounter for immunization Need for other specified prophylactic vaccination against single bacterial disease [facility]* Diagnosis Near syncope- Primary Syncope and collapse Urinary incontinence without sensory awareness Incontinence without sensory awareness Persistent disorder of initiating or maintaining sleep Hydronephrosis, right Hydronephrosis Dehydration documented in this encounter [facility] note* Diagnosis Asymptomatic postmenopausal state- Primary Screening for osteoporosis Special screening for osteoporosis Closed fracture of elbow, unspecified laterality, sequela documented in this encounter [facility] note* Diagnosis Controlled type 2 diabetes mellitus without complication, without long-term current use of insulin ([facility])- Primary Loose stools Abnormal feces Cognitive impairment Unspecified persistent mental disorders due to conditions classified elsewhere Anticoagulated on Coumadin Encounter for therapeutic drug monitoring Atrial flutter, unspecified type ([facility]) Vitamin D deficiency Unspecified vitamin D deficiency Encounter for therapeutic drug monitoring [facility]* Diagnosis B12 deficiency- Primary Other B-complex deficiencies Hypomagnesemia Disorders of magnesium metabolism Vitamin D deficiency Unspecified vitamin D deficiency [facility]* Diagnosis Hallucinations, unspecified- Primary Generalized weakness Other malaise and fatigue [facility]* Diagnosis Severe low back pain- Primary Lumbago DDD (degenerative disc disease), lumbar Degeneration of lumbar or lumbosacral intervertebral disc [facility]* Diagnosis Rib pain on right side Chest pain, unspecified Severe low back pain Lumbago DDD (degenerative disc disease), lumbar Degeneration of lumbar or lumbosacral intervertebral disc [facility]* Diagnosis HYPERTENSION NOS- Primary Unspecified essential [...] Mild intermittent asthma without complication Unspecified asthma RMAESH (obstructive sleep apnea) Obstructive sleep apnea (adult) [...] deficit Memory loss [facility]* Diagnosis HYPERTENSION NOS- Primary Unspecified essential [...] complication, without long-term current use of insulin ([facility]) Pacemaker Cardiac pacemaker in situ [facility]* Diagnosis HYPERTENSION NOS- Primary Unspecified essential [...] complication, without long-term current use of insulin ([facility]) Class 1 obesity due to excess calories with body mass index (BMI) of 30.0 to 30.9 in adult, unspecified whether serious comorbidity present Moderate persistent asthma without complication Unspecified asthma documented in this encounter [facility] note* Diagnosis HYPERTENSION NOS- Primary Unspecified essential [...] complication, without long-term current use of insulin ([facility]) Class 1 obesity due to excess calories with body mass index (BMI) of 30.0 to 30.9 in adult, unspecified whether serious comorbidity present Rib pain on right side Chest pain, unspecified Severe low back pain Lumbago DDD (degenerative disc disease), lumbar Degeneration of lumbar or lumbosacral intervertebral disc [facility]* Diagnosis HYPERTENSION NOS- Primary Unspecified essential [...] of unspecified site documented in this encounter [facility] note* Diagnosis HYPERTENSION NOS- Primary Unspecified essential [...] of insulin (HCC) documented in this encounter [facility] note* Diagnosis HYPERTENSION NOS- Primary Unspecified essential [...] site not specified [facility]* Diagnosis HYPERTENSION NOS- Primary Unspecified essential [...] in adult, unspecified whether serious comorbidity present Dysuria- Primary [facility] Diagnosis HYPERTENSION NOS- Primary Unspecified essential [...] in adult, unspecified whether serious comorbidity present Controlled type 2 diabetes mellitus without complication, without long-term current use of insulin (HCC)- Primary Mixed hyperlipidemia Essential hypertension Unspecified essential hypertension Atrial flutter, unspecified type (HCC) Anticoagulated on Coumadin Encounter for therapeutic drug monitoring Degeneration of intervertebral disc of lumbar region, unspecified whether pain present Memory deficit Memory loss Encounter for therapeutic drug monitoring [facility]* Diagnosis HYPERTENSION NOS- Primary Unspecified essential [...] serious comorbidity present Cognitive impairment, mild, so stated Mild cognitive impairment, so stated documented in this encounter [facility] note* Diagnosis HYPERTENSION NOS- Primary Unspecified essential [...] in adult, unspecified whether serious comorbidity present Mild dementia without behavioral disturbance, psychotic disturbance, mood disturbance, or anxiety, unspecified dementia type (HCC)- Primary Depression, unspecified depression type RAMESH (obstructive sleep apnea) Obstructive sleep apnea (adult) (pediatric) documented in this encounter [facility] note* Diagnosis HYPERTENSION NOS- Primary Unspecified essential [...] complication, without long-term current use of insulin ([facility]) Class 1 obesity due to excess calories with body mass index (BMI) of 30.0 to 30.9 in adult, unspecified whether serious comorbidity present Vitamin D deficiency- Primary Unspecified vitamin D deficiency Controlled type 2 diabetes mellitus without complication, without long-term current use of insulin ([facility]) documented in this encounter [facility] note* Diagnosis HYPERTENSION NOS- Primary Unspecified essential [...] in adult, unspecified whether serious comorbidity present Controlled type 2 diabetes mellitus without complication, without long-term current use of insulin (HCC)- Primary Essential hypertension Unspecified essential hypertension Mixed hyperlipidemia Mild intermittent asthma without complication Unspecified asthma Chronic pain of left knee Pain in joint, lower leg Sprain of left knee, unspecified ligament, initial encounter Hypomagnesemia Disorders of magnesium metabolism Vitamin D deficiency Unspecified vitamin D deficiency B12 deficiency Other B-complex deficiencies Insomnia, unspecified type Encounter for therapeutic drug monitoring documented in this encounter [facility] note* Diagnosis HYPERTENSION NOS- Primary Unspecified essential [...] in adult, unspecified whether serious comorbidity present Apathy Demoralization and apathy Moderate episode of recurrent major depressive disorder (HCC) documented in this encounter [facility] note* Diagnosis HYPERTENSION NOS- Primary Unspecified essential [...] adult, unspecified whether serious comorbidity present Urinary tract infection with hematuria, site unspecified- Primary Dysuria documented in this encounter [facility] note* Diagnosis HYPERTENSION NOS- Primary Unspecified essential [...] type (HCC) Mild intermittent asthma without complication (HCC) Unspecified asthma RAMESH (obstructive sleep apnea) Obstructive sleep apnea (adult) (pediatric) Pacemaker Cardiac pacemaker in situ Controlled type 2 diabetes mellitus without complication, without long-term current use of insulin (HCC) Class 1 obesity due to excess calories with body mass index (BMI) of 30.0 to 30.9 in adult, unspecified whether serious comorbidity present Urinary tract infection with hematuria, site unspecified- Primary Confusion Unspecified psychosis documented in this encounter [facility] note* Diagnosis HYPERTENSION NOS- Primary Unspecified essential [...] type (HCC) Mild intermittent asthma without complication (HCC) Unspecified asthma RAMESH (obstructive sleep apnea) Obstructive sleep apnea (adult) (pediatric) Pacemaker Cardiac pacemaker in situ Controlled type 2 diabetes mellitus without complication, without long-term current use of insulin (HCC) Class 1 obesity due to excess calories with body mass index (BMI) of 30.0 to 30.9 in adult, unspecified whether serious comorbidity present Dementia without behavioral disturbance (HCC) Dementia, unspecified, without behavioral disturbance Type 2 diabetes mellitus without complication, without long-term current use of insulin (HCC) [facility] Diagnosis HYPERTENSION NOS- Primary Unspecified essential [...] type (HCC) Mild intermittent asthma without complication (HCC) Unspecified asthma RAMESH (obstructive sleep apnea) Obstructive sleep apnea (adult) (pediatric) Pacemaker Cardiac pacemaker in situ Controlled type 2 diabetes mellitus without complication, without long-term current use of insulin (HCC) Class 1 obesity due to excess calories with body mass index (BMI) of 30.0 to 30.9 in adult, unspecified whether serious comorbidity present Chronic pain of right knee- Primary Chronic pain of left knee Pain in joint, lower leg Frequent UTI Urinary tract infection, site not specified Flexural atopic dermatitis Other atopic dermatitis and related conditions Rash of neck Rash and other nonspecific skin eruption Cognitive impairment Unspecified persistent mental disorders due to conditions classified elsewhere Controlled type 2 diabetes mellitus without complication, without long-term current use of insulin (HCC) Mixed hyperlipidemia Essential hypertension Unspecified essential hypertension Atrial flutter, unspecified type (HCC) Severe low back pain Lumbago Encounter for therapeutic drug monitoring [facility] Diagnosis HYPERTENSION NOS- Primary Unspecified essential [...] type (HCC) Mild intermittent asthma without complication (HCC) Unspecified asthma RAMESH (obstructive sleep apnea) Obstructive sleep apnea (adult) (pediatric) Pacemaker Cardiac pacemaker in situ Controlled type 2 diabetes mellitus without complication, without long-term current use of insulin (HCC) Class 1 obesity due to excess calories with body mass index (BMI) of 30.0 to 30.9 in adult, unspecified whether serious comorbidity present Chronic pain of left knee Pain in joint, lower leg Chronic pain of right knee [facility] Author Devyn Samaniego [facility] January 22, 2024 7:43am Note Date/Time January 22, 2024 7:4 3am [facility] Medical Records Department [address] [place] [address] History & Physical Exam 01/22/24 0743 MR#: [id number] Acct: [id number] Name: KEISHA RED Rep #:[id number] : 1945 78 From: Devyn Samaniego MD PCP: Dr. 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 Will doa complete check of the kidney and decide what is the best definitive therapy for her. 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 Contact dermatitis and other eczema COVID-19 CPAP (continuous positive airway pressure) dependence DDD (degenerative disc disease) Diabetes mellitus Dietary restriction Essential hypertension Fracture of left elbow History of complete heart block History of echocardiogram History of stress test Hx of bladder infections Hydronephrosis, right Hyperlipidemia Hypersomnia USP (current) use of anticoagulants Non-smoker Obesity RAMESH (obstructive sleep apnea) Other secondary pulmonary hypertension Post-menopausal Shortness of breath on exertion Shoulder dislocation Sore on leg Ureteral mass Wears dentures Wears glasses Home Medications warfarin 5 mg tablet 5 mg PO MOTUWETHFR blood thinner 11/18/18 [History Last Taken 01/16/24] atorvastatin 10 mg tablet 10 mg PO QHS cholesterol 12/11/19 [History Last Taken 01/21/24] TENS unit electrodes #2 ea 07/11/20 [History Last Taken Unknown] oxycodone-acetaminophen 5 mg-325 mg tablet 1 tab PO BID PRN PRN pain 12/07/20 [History Last Taken 01/20/24] metformin 500 mg tablet,extended release 24 hr 1,000 mg PO BID DM 06/17/22 [History Last Taken 01/21/24] gabapentin 300 mg capsule 300 mg PO BREAKFAST nerve pain 08/04/22 [History Last Taken 01/22/24 04:00] gabapentin 300 mg capsule 600 mg PO QHS Neuropathy 08/04/22 [History Last Taken 01/21/24] albuterol sulfate 90 mcg/actuation aerosol inhaler 2 puff inhalation Q4H PRN shortness of breath or wheezing #8.5 grams 11/26/23 [Rx Last Taken 01/22/24 03:00] warfarin 2.5 mg tablet (Jantoven) 2.5 mg PO SUSA blood thinner 12/30/23 [History Last Taken 01/16/24] magnesium 250 mg tablet 250 mg PO DAILY 01/13/24 [History Last Taken 01/21/24] budesonide-formoterol HFA 160 mcg-4.5 mcg/actuation aerosol inhaler (Symbicort) 2 puff inhalation BID asthma #10.2 grams 01/20/24 [Rx Last Taken 01/22/24 03:00] ciprofloxacin HCl 500 mg tablet (Cipro) 500 mg PO BID #10 tabs 01/22/24 [Rx Last Taken Unknown] cyclobenzaprine 10 mg tablet 10 mg PO TID PRN PRN muscle spasm 01/22/24 [History Last Taken Unknown] Allergy/AdvReac Type Severity Reaction Status Date / Time amoxicillin Allergy Severe Hives Verified 01/22/24 06:34 aspirin Allergy Severe Hives, SOB Verified 01/22/24 06:34 Sulfa (Sulfonamide Allergy Severe Hives Verified 01/22/24 06:34 Antibiotics) Family History Mother Diabetes Father CAD (coronary artery disease) Sister Lung cancer Son Kidney stone Surgical History (Updated 01/13/24 @ 10:30 by Shannan Burgess) History of appendectomy History of cystoscopy History of kidney surgery Hx of left cataract extraction Hx of right cataract extraction Presence of permanent cardiac pacemaker (04/01/19) Social History household members: none housing: house number of children: 3 current occupational status: retired Smoking Status: Never smoker alcohol intake: never substance use type: does not use what type of physical activity do you participate in: none do you feel safe at home: Yes Vital Signs Vital Signs Vital Signs: 01/22/24 06:42 01/22/24 06:48 Temperature 98.2 F Temperature Source Temporal Pulse Rate 77 Respiratory Rate 18 Respiratory Pattern Normal Blood Pressure 136/72 H Blood Pressure Mean 93 Blood Pressure Source Monitor Blood Pressure Position Semi-Fowlers Blood Pressure Location Right Arm Pulse Ox 100 Oxygen Delivery Method Room Air Weight Weight: 87.18 kg Body Mass Index (BMI) 29.2 Results Lab / Micro Data Labs: Laboratory Results - last 24 hr 01/22/24 06:23: POC PT 15.2 H, INR 1.4 01/22/24 0743 <Electronically signed by Devyn Samaniego MD> Cosigner Signature (if applicable): CC: Dr. Devyn Samaniego MD; Dr. Joon Lopez MD~ Signed [facility] Work Phone: History and physical note [facility] January 29, 2024 5:11pm Note Date/Time January 29, 2024 4:36 pm [facility] Medical Records Department [address] [place] [address] H&P Exam - Hospitalist 01/29/24 1635 MR#: [id number] Acct: [id number] Name: KEISHA RED Rep #:[id number] : 1945 78 From: Josesito Rico PCP: Dr. Joon Lopez MD Status:RE G ER Location: ED HPI - General General Date of Admission: 01/29/24 Date of Service: 01/29/24 Chief Complaint: Intermittent dizziness. Syncope yesterday. HPI Narrative KEISHA RED, is a 78 F Came to ED for dizziness intermittently. She has nonspecific complaint of not feeling good, fatigue. In ED, most of the evaluations are baseline but patient coming from the bathroom she felt dizzy andunderstated therefore decided for admission. Prior to that, patient went to ED after she passed out at home and was evaluated in altered mental ER. There patient had comprehensive evaluation including pacemaker interrogation was within normal limit and was offered observation but she declined and came to home. She also has right-sided hydronephrosis and left mild hydronephrosis for which she had right ureteric stent [address] Samaniego along with the biopsy of possible tumor in distal right ureter. Patient not having any acute urine complaints including burning micturition, hematuria. She completed antibiotic for ciprofloxacin but was diagnosed about 2weeks ago. 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 Non-smoker Obesity RAMESH (obstructive sleep apnea) Other secondary pulmonary hypertension Post-menopausal Shortness of breath on exertion Shoulder dislocation Sore on leg Ureteral mass Wears dentures Wears glasses Home Medications warfarin 5 mg tablet 5 mg PO SUMOTUWESA blood thinner 11/18/18 [History Last Taken 01/16/24] atorvastatin 10 mg tablet 10 mg PO QHS cholesterol 12/11/19 [History Last Taken 01/21/24] TENS unit electrodes #2 ea 07/11/20 [History Last Taken Unknown] oxycodone-acetaminophen 5 mg-325 mg tablet 1 tab PO Q8H PRN severe pain (scale score 7-10) 12/07/20 [History Last Taken 01/20/24] metformin 500 mg tablet,extended release 24 hr 1,000 mg PO BID DM 06/17/22 [History Last Taken 01/21/24] gabapentin 300 mg capsule 300 mg PO BREAKFAST nerve pain 08/04/22 [History Last Taken 01/22/24 04:00] gabapentin 300 mg capsule 600 mg PO QHS Neuropathy 08/04/22 [History Last Taken 01/21/24] albuterol sulfate 90 mcg/actuation aerosol inhaler 2 puff inhalation Q4H PRN shortness of breath or wheezing #8.5 grams 11/26/23 [Rx Last Taken 01/22/24 03:00] warfarin 2.5 mg tablet (Jantoven) 2.5 mg PO THFR blood thinner 12/30/23 [History Last Taken 01/16/24] budesonide-formoterol HFA 160 mcg-4.5 mcg/actuation aerosol inhaler (Symbicort) 2 puff inhalation BID asthma #10.2 grams 01/20/24 [Rx Last Taken 01/22/24 03:00] cyclobenzaprine 10 mg tablet 10 mg PO TID PRN muscle spasm 01/22/24 [History Last Taken Unknown] magnesium oxide 400 mg PO DAILY SUPPLEMENT 01/29/24 [History Last Taken Unknown] Allergy/AdvReac Type Severity Reaction Status Date / Time amoxicillin Allergy Severe Hives Verified 01/29/24 13:33 aspirin Allergy Severe Hives, SOB Verified 01/29/24 13:33 Sulfa (Sulfonamide Allergy Severe Hives Verified 01/29/24 13:33 Antibiotics) Family History Mother Diabetes Father CAD (coronary artery disease) Sister Lung cancer Son Kidney stone Surgical History History of appendectomy History of cystoscopy History of kidney surgery Hx of left cataract extraction Hx of right cataract extraction Presence of permanent cardiac pacemaker (04/01/19) Social History household members: none housing: house number of children: 3 current occupational status: retired Smoking Status: Never smoker alcohol intake: never substance use type: does not use what type of physical activity do you participate in: none do you feel safe at home: Yes ROS ROS Narrative Constitutional: Reports fatigue and weakness. No fever. HEENT: Complain of zigzag line on the right eye, unilateral reports systems reviewed and no addt'l complaints, except as documented Respiratory/Chest: No acute shortness of breath or respiratory distress or wheezing. CVS: No chest pain pressure or tightness Gastrointestinal: Denies coffee ground emesis, hematemesis or vomiting Genitourinary: Right-sided hydronephrosis status post recent stent. Denies acute burning urination or new urinary tract symptoms Musculoskeletal: Chronic arthritis of knees denies acute joint pain or limited range of motion. No acute injury Neurologic: Denies seizure-like symptoms. skin: Venous ulcer on the right leg, chronic Endocrinology: Reports systems reviewed and no addt'l complaints, except as documented Hematologic/Lymphatic: Reports systems reviewed and no addt'l complaints, exceptas documented Rest 14 ROS are negative except as mentioned in HPI Vital Signs Vital Signs Vital Signs: 01/29/24 13:35 01/29/24 13:37 01/29/24 14:37 Temperature 97.9 F 97.9 F Temperature Source Oral Oral Pulse Rate 73 72 Respiratory Rate 18 16 Respiratory Effort Normal Non-Labored Respiratory Pattern Normal Blood Pressure 139/113 H 151/73 H Blood Pressure Mean 121 99 Pulse Ox 98 98 Oxygen Delivery Method Room Air Room Air 01/29/24 15:43 Temperature 98 F Temperature Source Oral Pulse Rate 72 Respiratory Rate 16 Respiratory Effort Respiratory Pattern Blood Pressure 143/70 H Blood Pressure Mean 94 Pulse Ox 98 Oxygen Delivery Method Room Air Weight Weight: 203 lb 4.259 oz Body Mass Index (BMI) 30.9 Physical Exam Narrative General: Alert, Oriented x3, Cooperative HEENT: Atraumatic, PERRLA, EOMI, Normocephalic Oral: Oral mucosa moist no Gingival or Mucosal Lesions/ Ulcerations Neck: Supple, No JVD, Negative Carotid Bruits Chest wall/Lungs: Air entry diminished in bilateral lung bases. No crepitation/rhonchi Cardiovascular: paced rhythm, Normal S1, Normal S2, No M/G/R Abdomen: Bowel Sounds Present, Soft, Non Tender, Non-Distended : No dysuria. No renal angle tenderness. No suprapubic tenderness. Extremities: No edema, Capillary Refill Less than 3 Seconds Skin: Chronic venous changes in both lower legs. Right lower leg is chronic venous ulcer. Left lower leg skin macerated but no opening or ulceration. Musculoskeletal: No Tenderness to Palpation of Joints or Extremities. ROM restricted at knees and knee joints Neurological: Cranial nerves II-XII grossly intact, DTR 2+/4. No acute focal neurological deficit. Psych/Mental Status: Flat affect Results Lab / Micro Data 01/29/24 15:20 01/29/24 14:05 Labs: Laboratory Results - last 24 hr 01/29/24 13:50: Urine Color Yellow, Urine Clarity Clear, Urine pH 7.0, Ur Specific Holl[place] 1.005, Urine Protein 30 H, Urine Glucose (UA) Normal, Urine Ketones Negative, Urine Occult Blood 10 H, Urine Nitrite Negative, Urine Bilirubin Negative, Urine Urobilinogen Normal, Ur Leukocyte Esterase 25 H, UrineRBC 0-5 SEEN, Urine WBC 0- 5 SEEN, Ur Squamous Epith Cells 0-5 SEEN, Urine Bacteria 0 SEEN, Urine Mucus 0 SEEN 01/29/24 14:05: WBC Cancelled, Corrected WBC Cancelled, RBC Cancelled, Hgb Cancelled, Hct Cancelled, MCV Cancelled, MCH Cancelled, MCHC Cancelled, RDW Std Deviation Cancelled, RDW Coeff of Jason Cancelled, Plt Count Cancelled, MPV Cancelled, Immature Gran % (Auto) Cancelled, Neut % (Auto) Cancelled, Lymph % (Auto) Cancelled, Bureau % (Auto) Cancelled, Eos % (Auto) Cancelled, Baso % (Auto)Cancelled, Absolute Neuts (auto) Cancelled, Absolute Lymphs (auto) Cancelled, Total Counted Cancelled, Neutrophils % (Manual) Cancelled, Band Neutrophils % Cancelled, Lymphocytes % (Manual) Cancelled, Monocytes % (Manual) Cancelled, Eosinophils % (Manual) Cancelled, Basophils % (Manual) Cancelled, Metamyelocytes% Cancelled, Myelocytes % Cancelled, Promyelocytes % Cancelled, Blast Cells % Cancelled, Plasma Cell % (Manual) Cancelled, Other Cells % Cancelled, Nucleated RBC % Cancelled, Nucleated RBCs/100 WBC Cancelled, Differential Comment Cancelled, Diff Path Review Cancelled, Hypersegmented Neuts Cancelled, Atypical Lymphocytes Cancelled, Reactive Lymphocytes Cancelled, Smudge Cells Cancelled, Toxic Granulation Cancelled, Toxic Vacuolation Cancelled, Dohle Bodies Cancelled, Dez Rods Cancelled, Platelet Estimate Cancelled, Plt Morphology Comment Cancelled, RBC Morphology Cancelled 01/29/24 14:05: RBC Morphology Cancelled, Polychromasia Cancelled, HypochromasiaCancelled, Basophilic Stippling Cancelled, Anisocytosis Cancelled, Microcytosis Cancelled, Macrocytosis Cancelled, Spherocytes Cancelled, Sickle Cells Cancelled, Target Cells Cancelled, Tear Drop Cells Cancelled, Ovalocytes Cancelled, Stomatocytes Cancelled, [place] Bodies Cancelled, [place] Cells Cancelled, Bite Cells Cancelled, Crenated Cell Cancelled, Acanthocytes (Spur) Cancelled, Rouleaux Cancelled, Schistocytes Cancelled, PT Cancelled, INR Cancelled, Sodium 137, Potassium 4.2, Chloride 107, Carbon Dioxide 24.0, Anion Gap 6, BUN 10, Creatinine 0.82, Estim Creat Clear Calc 69.31, Est GFR (MDRD) Af Amer 87, Est GFR (MDRD) Non-Af 72, BUN/Creatinine Ratio 12.1, Glucose 137 H, Calcium 8.8, Total Bilirubin 1.00, AST 26, ALT 16, Alkaline Phosphatase 90, Troponin I High Sens 18, Total Protein 7.0, Albumin 3.3, Globulin 3.7, Albumin/Globulin Ratio 0.9 01/29/24 14:40: PT 14.8, INR 1.2 01/29/24 15:20: WBC 4.9, RBC 4.46, Hgb 14.2, Hct 44.2, MCV 99.1 H, MCH 31.8, MCHC 32.1, RDW Std Deviation 47.6 H, RDW Coeff of Jason 13.1, Plt Count 136 L, MPV9.6, Immature Gran % (Auto) 0.600, Neut % (Auto) 69.8, Lymph % (Auto) 18.3 L, Bureau % (Auto) 7.7, Eos % (Auto) 2.8, Baso % (Auto) 0.8, Absolute Neuts (auto) 3.4, Absolute Lymphs (auto) 0.90, Nucleated RBC % 0 Micro: Microbiology 01/29/24 13:50 Mucosa - Nose SARS-CoV-2, Influenza & RSV (PCR) - Final Imaging Radiology Impression Abdomen/Pelvis CT 01/29/24 13:45 IMPRESSION: Bilateral hydronephrosis and hydroureter more prominent on the right side. A right-sided double-J stent catheter is seen with the proximal tip in the right renal pelvis and distal tip in the bladder. Mild degree of left hydronephrosis. Electronically Signed: Chance Pearl MD at 14:46 EDT , Chest X-Ray 01/29/24 13:45 IMPRESSION: Hyperinflation. The lungs are clear. Electronically Signed: Chance Pearl MD at 14:47 EDT , Brain CT 01/29/24 14:44 IMPRESSION: Chronic involutional changes of the brain. Electronically Signed: Chance Pearl MD at 15:05 EDT , Assessment & Plan Assessment/Plan (1) Lightheadedness: PLAN: Plan This 78-year-old female admitted for further evaluation of dizziness lightheadedness. 1. Dizziness lightheadedness decreased/restricted ADL: Patient is being admitted in 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 residential monitor. IV fluid normal saline. Orthostatic blood pressure tomorrow AM. PT and OT evaluation. Empirically started on Claritin. 2. 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 UA done and also looks benign LE 25. Mild proteinuria. 3. Diabetes mellitus type II with chronic neuropathy: Accu-Chek insulin coverage Humalog sliding scale. continue chronic home gabapentin regimen. Patient on gabapentin 300 mg at breakfast 600 mg at bedtime. Will hold it possiblerespiratory rate 20 #4. Hypertension: BP mildly elevated #5. Hyperlipidemia: continue patient on statin therapy. #6. Chronic Kidney Disease Stage III A:BUNs/creatinine 10/0.82. baseline renalfunction primarily 0.9-1.0 #7. PAF/flutter: Was evaluated yesterday. EKG shows rhythm with underlying A- fib/a flutter at 69 bpm. Continue warfarin. INR 1.2. Low #8. History complete heart block: Status post pacemaker placement. #9. Obesity, grade: Weight loss and lifestyle changes encouraged. BMI 30.9 kg/m? #10. Chronic asthma with allergic rhinitis: We will temporally hold home inhalers in the interim placed on ATC budesonide therapy, PRN albuterol, HOB, ISparameters. #11. RAMESH: CPAP nightly. #12. DVT prophylaxis: Continue warfarin Living will/advanced directive/end of life care: Patient does have living will or advanced directive. I talked to the patient's younger daughter over the phone, her POA. After discussion of benefits/risks procedures involved with full code, DNR CC arrest and DNR CC, the patient opted for DNR CC arrest with nointubation Patient doesn't want artificial life support including intubation, tube feed, ventilator and/chest compression, central venous catheter, vasopressor and DC shock if needed Total time spent in [id number] encounter in discussion of advanced directive 17 minutes. Clinical Impression(s) from Imaging Studies Abdomen/Pelvis CT 01/29/24 13:45 IMPRESSION: Bilateral hydronephrosis and hydroureter more prominent on the right side. A right-sided double-J stent catheter is seen with the proximal tip in the right renal pelvis and distal tip in the bladder. Mild degree of left hydronephrosis. Chest X-Ray 01/29/24 13:45 IMPRESSION: Hyperinflation. The lungs are clear. Brain CT 01/29/24 14:44 IMPRESSION: Chronic involutional changes of the brain. Charges/Coding Visit Charges Inpatient E&M: 51925 Init Hosp L2 Procedures Hospitalists Procedures: 28507 Advncd Care Plan 30 Min 01/29/24 1711 <Electronically signed by Josesito Miller MD> Cosigner Signature (if applicable): CC: Dr. Joon Lopez MD; Dr. Josesito Miller MD~ Signed [facility] Work Phone: Hospital Discharge instructions Additional Instructions Elevate the leg to decrease pain and swelling The antibiotic Keflex 1 pill 4 times a day for the next 10 days till gone. Return if obvious to doctor if this is looking worse such as fever, streaks up your leg, the foot looks a lot worse or you feel worse. The antibiotic over the next several days should start working against the infection. Tylenol Motrin for pain.[facility] Work Phone: Hospital Discharge instructions Additional Instructions Wet-to-dry dressing changes 6 times a day.[facility] Work Phone: Hospital Discharge instructions Additional Instructions [facility] [place] [facility] Phone: Hospital Discharge instructions Additional Instructions Follow-up with your pain management doctor soon as possible. Take your Percocet as previously directed for pain. Return with new or worsening symptoms. Your x-rays were negative for fracture today, but you do have arthritis in your left shoulder.[facility] Work Phone: Reason for referral (narrative)* Diagnostic Procedure Only (Routine) - Pending Review Specialty Diagnoses / Procedures Referred By Contac t Referred To Contact XR IMAGING Diagnoses Asymptomatic postmenopausal state Screening for osteoporosis Closed fracture of elbow, unspecified laterality, sequela Procedures DXA-AXIAL SKELETON Trini Tang, JOSE DANIEL.WILDLAND FIREFIGHTER [address] [place] [address] [place] [address] Referral ID Status Reason Start Date Expiration Date Visits Requested Visits Authorized [id number] Pending Review Auto-Generat ed Referral 03/18/2024 04/16/2025 1 1 [facility] for referral (narrative)No reason for referral information availableW[facility] Work Phone: [facility] for visit Narrative* Diagnostic Procedure Only (Routine) - Closed Specialty Diagnoses / Procedures Referred By Contac t Referred To Contact Radiology / [facility] Diagnoses Acute upper respiratory infection, unspecified ML Procedures RADIOLOGIC EXAM CHEST 2 VIEWS XR CHEST Xi Worley, HYDRATION PLANT OPERATOR.RADAR ENGINEERING TEACHER [address] [place] [address] [facility] [address] [place] [address] Referral ID Status Reason Start Date Expiration Date Visits Re quested Visits Authorized [id number] Closed 05/06/2022 10/25/2022 1 1 [facility] for visit Narrative* Diagnostic Procedure Only (Routine) - Closed Specialty Diagnoses / Procedures Referred By Contac t Referred To Contact XR IMAGING Diagnoses Chronic pain of left knee Chronic pain of right knee Procedures XR KNEE GENERAL 4V AP BOTH/PA BOTH/LAT/MERC RIGHT RADIOLOGIC EXAM KNEE COMPLETE 4/MORE VIEWS Whitney Hammond HYDRATION PLANT OPERATOR.RADAR ENGINEERING TEACHER [address] [place] [address] Phone: tel: fax: [place] [address] Referral ID Status Reason Start Date Expiration Date V isits Requested Visits Authorized [id number] Closed Auto-Generate d Referral 03/13/2025 04/12/2026 1 1 [facility] Summary Purpose Family History No Family History Records Found Relationship Condition Age at Onset Recorded Date/T cindy mother Diabetes mellitus Unknown father Coronary artery disease Unknown sister Malignant neoplasm of lung Unknown son Calculus of kidney Unknown Advance Directives No Advanced Directives Records Found Advance Directive Response Recorded Date/ Time Advance Directives Yes March 17 8 11:27am Living Will No June 08 8:12pm Power of Associate Entertainment Editor No June 08 8:12pm Documents on File Type Date Recorded Patient Hand Cell Tuber Expl anation Advance Directive(s) 01/23/2021 8:35 AM Advance Directive(s) 01/11/2021 11:10 AM Advance Directive Response Recorded Date/ Time Advance Directives Yes March 17 8 11:27am Living Will No June 16 9:41pm Power of Associate Entertainment Editor No June 16 9:41pm Advance Directive Response Recorded Date/ Time Advance Directives Yes March 17 8 11:27am Living Will No June 17 2:33pm Power of Associate Entertainment Editor No June 17 2:33pm Advance Directive Response Recorded Date/ Time Name of Medical Power of Associate Entertainment Editor Brooke Zazueta n June 17, 2022 11:42pm Advance Directives Yes March 17 8 11:27am Living Will Yes June 17 11:42pm Power of Associate Entertainment Editor Yes June 17 11:42pm Advance Directive Response Recorded Date/ Time Name of Medical Power of Associate Entertainment Editor brooke zazueta n-daughter June 18, 2022 4:38am Advance Directives Yes March 17 8 11:27am Living Will Yes June 18 2 4:38am Power of Associate Entertainment Editor Yes June 18 4:38am Advance Directive Response Recorded Date/ Time Name of Medical Power of Associate Entertainment Editor brooke zazueta n-daughter June 18, 2022 4:38am Name of Medical Power of Associate Entertainment Editor daughter July 31, 2022 11:27am Advance Directives Yes March 17 8 11:27am Living Will Yes July 31 2 11:27am Power of Associate Entertainment Editor Yes July 31 11:27am Advance Directive Response Recorded Date/ Time Name of Medical Power of Associate Entertainment Editor brooke zzaueta n-daughter June 18, 2022 3:38am Name of Medical Power of Associate Entertainment Editor daughter July 31, 2022 10:27am Advance Directives Yes March 17 8 10:27am Living Will Yes July 31 10:27am Power of Associate Entertainment Editor Yes July 31 10:27am Advance Directive Response Recorded Date/ Time Name of Medical Power of Associate Entertainment Editor daughter July 31, 2022 10:27am Advance Directives Yes March 17 8 10:27am Living Will Yes July 31 10:27am Power of Associate Entertainment Editor Yes July 31 10:27am Advance Directive Response Recorded Date/ Time Advance Directives Yes March 17 8 10:27am Living Will Yes July 31 10:27am Power of Associate Entertainment Editor Yes July 31 10:27am Advance Directive Response Recorded Date/ Time Name of Medical Power of Associate Entertainment Editor marni March 18, 2023 11:06am Advance Directives Yes March 17 8 11:27am Living Will Yes March 18, 2023 1 1:06am Power of Associate Entertainment Editor Yes March 18, 2023 11:06am Advance Directive Response Recorded Date/ Time Name of Medical Power of Associate Entertainment Editor marni March 18, 2023 11:06am Name of Medical Power of Associate Entertainment Editor Brooke Zazueta n May 09, 2023 10:07am Advance Directives Yes March 17 8 11:27am Living Will Yes May 09, 2023 10:07am Power of Associate Entertainment Editor Yes May 09 10:07am Advance Directive Response Recorded Date/ Time Name of Medical Power of Associate Entertainment Editor marni March 18, 2023 11:06am Name of Medical Power of Associate Entertainment Editor Brooke Zazueta n May 09, 2023 10:07am Name of Medical Power of Associate Entertainment Editor ? May 21, 2023 11:43am Advance Directives Yes March 17 8 11:27am Living Will Yes May 21, 2023 11:43am Power of Associate Entertainment Editor Yes May 21 11:43am Advance Directive Response Recorded Date/ Time Name of Medical Power of Associate Entertainment Editor Brooke Zazueta n May 09, 2023 10:07am Name of Medical Power of Associate Entertainment Editor ? May 21, 2023 11:43am Advance Directives Yes March 17 8 11:27am Living Will Yes May 21, 2023 11:43am Power of Associate Entertainment Editor Yes May 21 11:43am Advance Directive Response Recorded Date/ Time Advance Directives Yes March 17 8 10:27am Living Will No September 01 3:30pm Power of Associate Entertainment Editor No September 01, 2023 3:30pm Name of Medical Power of Associate Entertainment Editor Brooke Zazueta n May 09, 2023 9:07am Name of Medical Power of Associate Entertainment Editor ? May 21, 2023 10:43am Advance Directive Response Recorded Date/ Time Advance Directives Yes March 17 8 10:27am Living Will No October 01 11:33pm Power of Associate Entertainment Editor No October 01, 2023 11:33pm Advance Directive Response Recorded Date/ Time Advance Directives Yes March 17 8 10:27am Living Will No November 09 2:48pm Power of Associate Entertainment Editor No November 09, 2023 2:48pm Advance Directive Response Recorded Date/ Time Advance Directives Yes March 17 8 10:27am Living Will No November 28 10:50pm Power of Associate Entertainment Editor No November 28, 2023 10:50pm Advance Directive Response Recorded Date/ Time Name of Medical Power of Associate Entertainment Editor brooke zazueta n December 30, 2023 12:08am Advance Directives Yes March 17 8 10:27am Living Will Yes December 30, 2023 12:08am Power of Associate Entertainment Editor Yes December 29 12:08am Advance Directive Response Recorded Date/ Time Name of Medical Power of Associate Entertainment Editor brooke zazueta n December 30, 2023 1:08am Name of Medical Power of Associate Entertainment Editor DAUGHTERS January 13, 2024 10:14am Advance Directives Yes March 17 8 11:27am Living Will Yes January 13, 2024 10:14am Power of Associate Entertainment Editor Yes January 12 10:14am Advance Directive Response Recorded Date/ Time Name of Medical Power of Associate Entertainment Editor brooke zazueta n December 30, 2023 1:08am Name of Medical Power of Associate Entertainment Editor DAUGHTERS January 13, 2024 10:14am Name of Medical Power of Associate Entertainment Editor ROSALIO, daughters January 29, 2024 1:37pm Advance Directives Yes March 17 8 11:27am Living Will Yes January 29, 2024 1:37pm Power of Associate Entertainment Editor Yes January 28 1:37pm Advance Directive Response Recorded Date/ Time Name of Medical Power of Associate Entertainment Editor brooke zazueta n December 30, 2023 1:08am Name of Medical Power of Associate Entertainment Editor DAUGHTERS January 13, 2024 10:14am Name of Medical Power of Associate Entertainment Editor ROSALIO, daughters January 29, 2024 5:33pm Advance Directives Yes March 17 8 11:27am Living Will Yes January 29, 2024 5:33pm Power of Associate Entertainment Editor Yes January 28 5:33pm Advance Directive Response Recorded Date/ Time Living Will Yes June 16 10:43pm Power of Associate Entertainment Editor Yes June 16, 10:43pm Living Will No August 25 8:49pm Power of Associate Entertainment Editor No August 25, 2024 8:49pm Living Will No September 25 12:41am Power of Associate Entertainment Editor No September 25, 2024 12:41am Living Will Yes January 04, 2025 6:20pm Power of Associate Entertainment Editor Yes January 04 6:20pm Name of Medical Power of Associate Entertainment Editor ? January 04, 2025 6:20pm Advance Directives No June 12:17pm Advance Directive Response Recorded Date/ Time Living Will Yes June 16 10:43pm Do you have a Healthcare Power of Associate Entertainment Editor? Yes June 16, 2024 10:43pm Living Will No November 26 2:35am Do you have a Healthcare Power of Associate Entertainment Editor? No November 26, 2024 2:35am Living Will No September 25 12:41am Do you have a Healthcare Power of Associate Entertainment Editor? No September 25, 2024 12:41am Living Will Yes January 04, 2025 6:20pm Do you have a Healthcare Power of Associate Entertainment Editor? Yes January 04, 2025 6:20pm Name of Medical Power of Associate Entertainment Editor ? January 04, 2025 6:20pm Advance Directives No June 12:17pm Advance Directive Response Recorded Date/ Time Living Will Yes June 16 10:43pm Do you have a Healthcare Power of Associate Entertainment Editor? Yes June 16, 2024 10:43pm Living Will No November 26 2:35am Do you have a Healthcare Power of Associate Entertainment Editor? No November 26, 2024 2:35am Living Will Yes January 04, 2025 6:20pm Do you have a Healthcare Power of Associate Entertainment Editor? Yes January 04, 2025 6:20pm Name of Medical Power of Associate Entertainment Editor ? January 04, 2025 6:20pm Living Will No January 23, 2025 10:13pm Do you have a Healthcare Power of Associate Entertainment Editor? No January 23, 2025 10:13pm Advance Directives No June 12:17pm Chief Complaint and Reason for Visit Chief Complaint 1 Y FU 9 MO F/U (DJN PT) S/O S/O S/O S/O Reason for Visit Asthma Essential hypertension Atrial fibrillation Hyperlipidemia Presence of permanent cardiac pacemaker S/P ablation of atrial flutter Chief Complaint S/O S/O 6 M FU S/O Reason for Visit Cardiac murmur Atrial fibrillation Hyperlipidemia Presence of permanent cardiac pacemaker S/P ablation of atrial flutter Chief Complaint S/O S/O 6 M FU S/O MURMUR *MOODISPAW* S/O Reason for Visit Cardiac murmur Atrial fibrillation Hyperlipidemia Presence of permanent cardiac pacemaker S/P ablation of atrial flutter Chief Complaint S/O 6 M FU S/O MURMUR *MOODISPAW* S/O 6 M FU Reason for Visit Cardiac murmur Atrial fibrillation Hyperlipidemia Presence of permanent cardiac pacemaker S/P ablation of atrial flutter Asthma Obesity RAMESH (obstructive sleep apnea) Chief Complaint 6 M FU S/O MURMUR *MOODISPAW* S/O 6 M FU CONFUSION Reason for Visit Cardiac murmur Atrial fibrillation Hyperlipidemia Presence of permanent cardiac pacemaker S/P ablation of atrial flutter Asthma Obesity RAMESH (obstructive sleep apnea) Chief Complaint 6 M FU S/O MURMUR *MOODISPAW* S/O 6 M FU CONFUSION CONFUSION Reason for Visit Cardiac murmur Atrial fibrillation Hyperlipidemia Presence of permanent cardiac pacemaker S/P ablation of atrial flutter Asthma Obesity RAMESH (obstructive sleep apnea) Chief Complaint 6 M FU S/O MURMUR *MOODISPAW* S/O 6 M FU CONFUSION CONFUSION altered loc COVID, ENCEPHALOPATHY, ? CVA Reason for Visit Cardiac murmur Atrial fibrillation Hyperlipidemia Presence of permanent cardiac pacemaker S/P ablation of atrial flutter Asthma Obesity RAMESH (obstructive sleep apnea) Acute confusion Ataxia Confusion COVID-19 Chief Complaint 6 M FU S/O MURMUR *MOODISPAW* S/O 6 M FU CONFUSION CONFUSION altered loc COVID, ENCEPHALOPATHY, ? CVA COVID, ENCEPHALOPATHY, ? CVA Reason for Visit Cardiac murmur Atrial fibrillation Hyperlipidemia Presence of permanent cardiac pacemaker S/P ablation of atrial flutter Asthma Obesity RAMESH (obstructive sleep apnea) Acute confusion Ataxia Confusion COVID-19 Chief Complaint MURMUR *MOODISPAW* S/O 6 M FU CONFUSION CONFUSION altered loc COVID, ENCEPHALOPATHY, ? CVA COVID, ENCEPHALOPATHY, ? CVA SOB Reason for Visit Asthma Obesity RAMESH (obstructive sleep apnea) Ataxia Confusion Chief Complaint CONFUSION CONFUSION altered loc COVID, ENCEPHALOPATHY, ? CVA COVID, ENCEPHALOPATHY, ? CVA SOB S/P WC ER, SOB NECK PAIN X3 DAYS S/O PPM CK / MMM 9:00 Reason for Visit Ataxia Confusion UTI (urinary tract infection) Atrial fibrillation Hyperlipidemia Presence of permanent cardiac pacemaker S/P ablation of atrial flutter Cervical strain, acute Atrial fibrillation Hyperlipidemia Presence of permanent cardiac pacemaker S/P ablation of atrial flutter Presence of permanent cardiac pacemaker S/P ablation of atrial flutter Chief Complaint SOB S/P WC ER, SOB NECK PAIN X3 DAYS S/O PPM CK / MMM 9:00 S/O 6 M FU Reason for Visit UTI (urinary tract i nfection) Atrial fibrillation Hyperlipidemia Presence of permanent cardiac pacemaker S/P ablation of atrial flutter Cervical strain, acute Atrial fibrillation Hyperlipidemia Presence of permanent cardiac pacemaker S/P ablation of atrial flutter Presence of permanent cardiac pacemaker S/P ablation of atrial flutter Asthma RAMESH (obstructive sleep apnea) Chief Complaint NECK PAIN X3 DAYS S/O PPM CK / MMM 9:00 S/O 6 M FU S/O Reason for Visit Cervical strain, acu te Atrial fibrillation Hyperlipidemia Presence of permanent cardiac pacemaker S/P ablation of atrial flutter Presence of permanent cardiac pacemaker S/P ablation of atrial flutter Asthma RAMESH (obstructive sleep apnea) Chief Complaint GENERAL ILLNESS fall S/O SOB/overuse of albuterol REMOTE PPM F/U Reason for Visit Asthma Presence of permanent cardiac pacemaker S/P ablation of atrial flutter Chief Complaint GENERAL ILLNESS fall S/O SOB/overuse of albuterol REMOTE PPM F/U WOUND Reason for Visit Asthma Presence of permanent cardiac pacemaker S/P ablation of atrial flutter Chief Complaint GENERAL ILLNESS fall S/O SOB/overuse of albuterol REMOTE PPM F/U WOUND WOUND CHECK Reason for Visit Asthma Presence of permanent cardiac pacemaker S/P ablation of atrial flutter Chief Complaint GENERAL ILLNESS fall S/O SOB/overuse of albuterol REMOTE PPM F/U WOUND WOUND CHECK S/O 8 wk fu/Routine WOUND Reason for Visit Asthma Presence of permanent cardiac pacemaker S/P ablation of atrial flutter Asthma Diabetes mellitus Obesity RAMESH (obstructive sleep apnea) Pulmonary hypertension Essential hypertension Pain in left foot Hyperlipidemia Non-pressure chronic ulcer of other part of left foot with fat layer exposed Obesity Type 2 diabetes mellitus Chief Complaint S/O SOB/overuse of albuterol REMOTE PPM F/U REMOTE PPM F/U WOUND WOUND CHECK S/O 8 wk fu/Routine WOUND 1 Y FU S/O WOUND Reason for Visit Asthma Presence of permanent cardiac pacemaker S/P ablation of atrial flutter Asthma Diabetes mellitus Obesity RAMESH (obstructive sleep apnea) Pulmonary hypertension Essential hypertension Pain in left foot Hyperlipidemia Non-pressure chronic ulcer of other part of left foot with fat layer exposed Obesity Type 2 diabetes mellitus Atrial fibrillation Hyperlipidemia Presence of permanent cardiac pacemaker S/P ablation of atrial flutter Essential hypertension Pain in left foot Diabetes mellitus Hyperlipidemia Non-pressure chronic ulcer of other part of left foot with fat layer exposed Chief Complaint WOUND WOUND CHECK S/O 8 wk fu/Routine WOUND 1 Y FU S/O WOUND WOUND FALL Reason for Visit Asthma Diabetes mellitus Obesity RAMESH (obstructive sleep apnea) Pulmonary hypertension Essential hypertension Pain in left foot Hyperlipidemia Non-pressure chronic ulcer of other part of left foot with fat layer exposed Obesity Type 2 diabetes mellitus Atrial fibrillation Hyperlipidemia Presence of permanent cardiac pacemaker S/P ablation of atrial flutter Essential hypertension Pain in left foot Diabetes mellitus Hyperlipidemia Non-pressure chronic ulcer of other part of left foot with fat layer exposed Essential hypertension Pain in left foot Diabetes mellitus Hyperlipidemia Non-pressure chronic ulcer of other part of left foot with fat layer exposed Chief Complaint WOUND WOUND CHECK S/O 8 wk fu/Routine WOUND 1 Y FU S/O WOUND WOUND FALL WOUND Reason for Visit Asthma Diabetes mellitus Obesity RAMESH (obstructive sleep apnea) Pulmonary hypertension Essential hypertension Pain in left foot Hyperlipidemia Non-pressure chronic ulcer of other part of left foot with fat layer exposed Obesity Type 2 diabetes mellitus Atrial fibrillation Hyperlipidemia Presence of permanent cardiac pacemaker S/P ablation of atrial flutter Essential hypertension Pain in left foot Diabetes mellitus Hyperlipidemia Non-pressure chronic ulcer of other part of left foot with fat layer exposed Essential hypertension Pain in left foot Diabetes mellitus Hyperlipidemia Non-pressure chronic ulcer of other part of left foot with fat layer exposed Essential hypertension Pain in left foot Diabetes mellitus Hyperlipidemia Non-pressure chronic ulcer of other part of left foot with fat layer exposed Chief Complaint 8 wk fu/Routine WOUND 1 Y FU S/O WOUND WOUND FALL WOUND DIZZINESS Reason for Visit Asthma Diabetes mellitus Obesity RAMESH (obstructive sleep apnea) Pulmonary hypertension Essential hypertension Pain in left foot Hyperlipidemia Non-pressure chronic ulcer of other part of left foot with fat layer exposed Obesity Type 2 diabetes mellitus Atrial fibrillation Hyperlipidemia Presence of permanent cardiac pacemaker S/P ablation of atrial flutter Essential hypertension Pain in left foot Diabetes mellitus Hyperlipidemia Non-pressure chronic ulcer of other part of left foot with fat layer exposed Essential hypertension Pain in left foot Diabetes mellitus Hyperlipidemia Non-pressure chronic ulcer of other part of left foot with fat layer exposed Essential hypertension Pain in left foot Diabetes mellitus Hyperlipidemia Non-pressure chronic ulcer of other part of left foot with fat layer exposed Chief Complaint WOUND WOUND FALL WOUND Pacer Check Remote DIZZINESS fall Reason for Visit Essential hypertensi on Pain in left foot Diabetes mellitus Hyperlipidemia Non-pressure chronic ulcer of other part of left foot with fat layer exposed Essential hypertension Pain in left foot Diabetes mellitus Hyperlipidemia Non-pressure chronic ulcer of other part of left foot with fat layer exposed Essential hypertension Pain in left foot Diabetes mellitus Hyperlipidemia Non-pressure chronic ulcer of other part of left foot with fat layer exposed Chief Complaint WOUND FALL WOUND Pacer Check Remote DIZZINESS fall Pacer Check Remote ANNUAL IN OFFICE CHECK 6 M FU ASTHMA Asthma BACK SPASMS Reason for Visit Essential hypertensi on Pain in left foot Diabetes mellitus Hyperlipidemia Non-pressure chronic ulcer of other part of left foot with fat layer exposed Essential hypertension Pain in left foot Diabetes mellitus Hyperlipidemia Non-pressure chronic ulcer of other part of left foot with fat layer exposed History of complete heart block Presence of permanent cardiac pacemaker S/P ablation of atrial flutter Asthma RAMESH (obstructive sleep apnea) Chief Complaint WOUND FALL WOUND Pacer Check Remote DIZZINESS fall Pacer Check Remote ANNUAL IN OFFICE CHECK 6 M FU ASTHMA Asthma BACK SPASMS ASTHMA Asthma Reason for Visit Essential hypertensi on Pain in left foot Diabetes mellitus Hyperlipidemia Non-pressure chronic ulcer of other part of left foot with fat layer exposed Essential hypertension Pain in left foot Diabetes mellitus Hyperlipidemia Non-pressure chronic ulcer of other part of left foot with fat layer exposed History of complete heart block Presence of permanent cardiac pacemaker S/P ablation of atrial flutter Asthma RAMESH (obstructive sleep apnea) Chief Complaint WOUND Pacer Check Remote DIZZINESS fall Pacer Check Remote ANNUAL IN OFFICE CHECK 6 M FU ASTHMA Asthma BACK SPASMS ASTHMA Asthma UIT, R HYDRO/STONE UIT, R HYDRO/STONE UIT, R HYDRO/STONE Reason for Visit Essential hypertensi on Pain in left foot Diabetes mellitus Hyperlipidemia Non-pressure chronic ulcer of other part of left foot with fat layer exposed History of complete heart block Presence of permanent cardiac pacemaker S/P ablation of atrial flutter Asthma RAMESH (obstructive sleep apnea) Hydronephrosis, right Ureteral mass UTI (urinary tract infection) Chief Complaint Pacer Check Remote DIZZINESS fall Pacer Check Remote ANNUAL IN OFFICE CHECK 6 M FU ASTHMA Asthma BACK SPASMS ASTHMA Asthma UIT, R HYDRO/STONE PREOP UIT, R HYDRO/STONE UIT, R HYDRO/STONE Pacer Check Remote LUMBAR SPINE RM 1 S/O 6 M FU Right Ureteroscopy, ureteral mass biopsy and urete Reason for Visit History of complete heart block Presence of permanent cardiac pacemaker S/P ablation of atrial flutter Asthma RAMESH (obstructive sleep apnea) UTI (urinary tract infection) Other intervertebral disc degeneration, lumbar region Atrial fibrillation Hyperlipidemia Presence of permanent cardiac pacemaker S/P ablation of atrial flutter Chief Complaint DIZZINESS fall Pacer Check Remote ANNUAL IN OFFICE CHECK 6 M FU ASTHMA Asthma BACK SPASMS ASTHMA Asthma UIT, R HYDRO/STONE PREOP UIT, R HYDRO/STONE UIT, R HYDRO/STONE Pacer Check Remote LUMBAR SPINE RM 1 S/O 6 M FU Right Ureteroscopy, ureteral mass biopsy and urete DIZZINESS, RESTRICTED TO ADL DIZZINESS, RESTRICTED TO ADL Reason for Visit History of complete heart block Presence of permanent cardiac pacemaker S/P ablation of atrial flutter Asthma RAMESH (obstructive sleep apnea) UTI (urinary tract infection) Other intervertebral disc degeneration, lumbar region Atrial fibrillation Hyperlipidemia Presence of permanent cardiac pacemaker S/P ablation of atrial flutter Acute URI Lightheadedness Chief Complaint fall Pacer Check Remote ANNUAL IN OFFICE CHECK 6 M FU ASTHMA Asthma BACK SPASMS ASTHMA Asthma UIT, R HYDRO/STONE PREOP UIT, R HYDRO/STONE UIT, R HYDRO/STONE Pacer Check Remote LUMBAR SPINE RM 1 S/O 6 M FU Right Ureteroscopy, ureteral mass biopsy and urete DIZZINESS, RESTRICTED TO ADL DIZZINESS, RESTRICTED TO ADL DIZZINESS, RESTRICTED TO ADL Reason for Visit History of complete heart block Presence of permanent cardiac pacemaker S/P ablation of atrial flutter Asthma RAMESH (obstructive sleep apnea) UTI (urinary tract infection) Other intervertebral disc degeneration, lumbar region Atrial fibrillation Hyperlipidemia Presence of permanent cardiac pacemaker S/P ablation of atrial flutter Acute URI Lightheadedness Subtherapeutic international normalized ratio (INR) Chief Complaint Admit Date S/O September 19, 2024 1:16pm S/O November 01, 2024 7: 52am 6 M FU December 09, 2024 7:50am SHOULDER PAIN January 04, 2025 5:1 6pm Reason for Visit Admit Date Asthma December 09, 2024 7:50am RAMESH (obstructive sleep apnea) November 262024 7:50am Chief Complaint Admit Date S/O November 01, 2024 7: 52am 6 M FU December 09, 2024 7:50am SHOULDER PAIN January 04, 2025 5:1 6pm S/O January 12, 2025 9:5 9am Chief Complaint Admit Date 6 M FU December 09, 2024 7:50am SHOULDER PAIN January 04, 2025 5:1 6pm S/O January 12, 2025 9:5 9am S/O March 23, 2025 7:43a m Reason for Referral Specialty Diagnoses / Procedures Referred By Aminata marie Referred To Contact Diagnoses Back strain, sequela Joon Lopez MD [address] [place] [address] Referral ID Status Reason Start Date Expiration Date V isits Requested Visits Authorized [id number] Authorized 12/12/2022 12/27/2023 1 1 Specialty Diagnoses / Procedures Referred By Aminata marie Referred To Contact [facility] Diagnoses Back strain, subsequent encounter Muscle spasm Back strain, sequela Procedures CONSULT TO PHYSICAL THERAPY PHYSICAL THERAPY EVALUATION HIGH COMPLEX 45 MINS Trini Tang, HYDRATION PLANT OPERATOR.WILDLAND FIREFIGHTER [address] [place] [address] [facility] [address] [place] [id number] Referral ID Status Reason Start Date Expiration Date Visits Requested Visits Authorized [id number] Pending Review Auto-Generat ed Referral 04/16/2023 04/15/2024 1 1 Specialty Diagnoses / Procedures Referred By Contac t Referred To Contact [facility] Diagnoses Mild intermittent asthma without complication Procedures SPIROMETRY - BASELINE AND POST DILATOR BRNCDILAT RSPSE SPMTRY PRE&POST-BRNCDILAT ADMN Trini Tang, HYDRATION PLANT OPERATOR.WILDLAND FIREFIGHTER [address] [place] [address] [facility] [address] [place] [id number] Referral ID Status Reason Start Date Expiration Date Visits Requested Visits Authorized [id number] Pending Review Auto-Generat ed Referral 04/16/2023 05/15/2024 1 1 Specialty Diagnoses / Procedures Referred By Contac t Referred To Contact Podiatry Diagnoses Cellulitis of foot Partial thickness burn of left foot, subsequent encounter Controlled type 2 diabetes mellitus without complication, without long-term current use of insulin (HCC) Procedures CONSULT TO PODIATRY OFFICE/OUTPATIENT [facility] 60-74 MINUTES Whitney Hammond APRN.RADAR ENGINEERING TEACHER [address] [place] [address] Referral ID Status Reason Start Date Expiration Date Visits Requested Visits Authorized [id number] Authorized PCP Requested Referral 05/12/2023 05/11/2024 1 1 Specialty Diagnoses / Procedures Referred By Contac t Referred To Contact [facility] Diagnoses Severe low back pain DDD (degenerative disc disease), lumbar Procedures CONSULT TO [facility] OFFICE/OUTPATIENT [facility] 60 MINUTES Trini Tang, HYDRATION PLANT OPERATOR.WILDLAND FIREFIGHTER [address] [place] [address] Referral ID Status Reason Start Date Expiration Date Visits Requested Visits Authorized [id number] Pending Review PCP Requested Referral 12/14/2023 12/13/2024 1 1 Specialty Diagnoses / Procedures Referred By Contac t Referred To Contact Pain Management Diagnoses Severe low back pain DDD (degenerative disc disease), lumbar Procedures CONSULT TO PAIN MGT OFFICE/OUTPATIENT [facility] 60 MINUTES Trini Tang APRN.CNS [address] [place] [address] Referral ID Status Reason Start Date Expiration Date Visits Requested Visits Authorized [id number] Pending Review PCP Requested Referral 06/02/2024 06/01/2025 1 1 Specialty Diagnoses / Procedures Referred By Contac t Referred To Contact Gerontology / INTERNAL MEDICINE Diagnoses Cognitive impairment Memory deficit Procedures CONSULT TO GERIATRICS OFFICE/OUTPATIENT [facility] 60 MINUTES Joon Lopez MD [address] [place] [address] Xochitl Castrejon MD [address] [place], [place] [id number] Referral ID Status Reason Start Date Expiration Date Visits Requested Visits Authorized [id number] Authorized PCP Requested Referral 05/13/2024 10/25/2024 1 1 Specialty Diagnoses / Procedures Referred By Contac t Referred To Contact Joon Lopez MD [address] [place], [place] [id number] Referral ID Status Reason Start Date Expiration Date V isits Requested Visits Authorized [id number] Authorized 04/27/2024 05/12/2025 1 1 Specialty Diagnoses / Procedures Referred By Contac t Referred To Contact [facility] Diagnoses Cognitive impairment, mild, so stated Procedures MRI 3D POST PROCESSING 3D RENDERING W/INTERP&POSTPROC DIFF WORK STATION Xochitl Castrejon MD [address] [place] [id number] [place] [address] Referral ID Status Reason Start Date Expiration Date Visits Requested Visits Authorized [id number] New Request Auto-Generat ed Referral 08/03/2024 09/02/2025 1 1 Specialty Diagnoses / Procedures Referred By Contac t Referred To Contact [facility] Diagnoses Cognitive impairment, mild, so stated Procedures MRI BRAIN W QUANT WO IVCON MRI BRAIN BRAIN STEM W/O CONTRAST MATERIAL Xochitl Castrejon MD [address] [place] [id number] [place] [address] Referral ID Status Reason Start Date Expiration Date Visits Requested Visits Authorized [id number] New Request Auto-Generat ed Referral 08/03/2024 09/02/2025 1 1 Additional Source Comments INFORMATION SOURCE (unrecogn ized section and content) DATE CREATED AUTHOR 2021 [facility] DATE CREATED AUTHOR AUTHOR'S ORGANIZ ATION 02/04/2024 [facility] ([place]) DATE CREATED AUTHOR AUTHOR'S ORGANIZ ATION 09/30/2024 [facility] DATE CREATED AUTHOR AUTHOR'S ORGANIZ ATION 03/26/2025 [facility] DATE CREATED AUTHOR AUTHOR'S ORGANIZ ATION 03/26/2025 [facility] Goals (unrecognized section and content) Goals may be documented in a n alternate sectionGoals may be documented in an alternate sectionGoals may be documented in an alternate sectionGoals may be documented in an alternate sectionGoals may be documented in an alternate sectionGoals may be documented in an alternate sectionGoals may be documented in an alternate sectionGoals may be documented in an alternate sectionGoals may be documented in an alternate sectionGoals may be documented in an alternate sectionGoals may be documented in an alternate sectionGoals may be documented in an alternate sectionGoals may be documented in an alternate sectionGoals may be documented in an alternate sectionGoals may be documented in an alternate sectionGoals may be documented in an alternate sectionGoals may be documented in an alternate sectionGoals may be documented in an alternate sectionGoals may be documented in an alternate sectionGoals may be documented in an alternate sectionGoals may be documented in an alternate sectionGoals may be documented in an alternate sectionGoals may be documented in an alternate section No data available for this sectionGoals may be documented in an alternate sectionGoals may be documented in an alternate sectionGoals may be documented in an alternate section Source Comments (unrecognize d section and content) In the event this informatio n is protected by the Federal Confidentiality of Alcohol and Drug Abuse Patient Records regulations: The Federal rules restrict any use of the information to criminally investigate or prosecute any alcohol or drug abuse patient.[facility] the event this information is protected by the Federal Confidentiality of Alcohol and Drug Abuse Patient Records regulations: The Federal rules restrict any use of the information to criminally investigate or prosecute any alcohol or drug abuse patient.[facility] the event this information is protected by the Federal Confidentiality of Alcohol and Drug Abuse Patient Records regulations: The Federal rules restrict any use of the information to criminally investigate or prosecute any alcohol or drug abuse patient.[facility] the event this information is protected by the Federal Confidentiality of Alcohol and Drug Abuse Patient Records regulations: The Federal rules restrict any use of the information to criminally investigate or prosecute any alcohol or drug abuse patient.[facility] the event this information is protected by the Federal Confidentiality of Alcohol and Drug Abuse Patient Records regulations: The Federal rules restrict any use of the information to criminally investigate or prosecute any alcohol or drug abuse patient.[facility] the event this information is protected by the Federal Confidentiality of Alcohol and Drug Abuse Patient Records regulations: The Federal rules restrict any use of the information to criminally investigate or prosecute any alcohol or drug abuse patient.[facility]ron[facility] the event this information is protected by the Federal Confidentiality of Alcohol and Drug Abuse Patient Records regulations: The Federal rules restrict any use of the information to criminally investigate or prosecute any alcohol or drug abuse patient.[facility] the event this information is protected by the Federal Confidentiality of Alcohol and Drug Abuse Patient Records regulations: The Federal rules restrict any use of the information to criminally investigate or prosecute any alcohol or drug abuse patient.[facility] the event this information is protected by the Federal Confidentiality of Alcohol and Drug Abuse Patient Records regulations: The Federal rules restrict any use of the information to criminally investigate or prosecute any alcohol or drug abuse patient.[facility] the event this information is protected by the Federal Confidentiality of Alcohol and Drug Abuse Patient Records regulations: The Federal rules restrict any use of the information to criminally investigate or prosecute any alcohol or drug abuse patient.[facility] the event this information is protected by the Federal Confidentiality of Alcohol and Drug Abuse Patient Records regulations: The Federal rules restrict any use of the information to criminally investigate or prosecute any alcohol or drug abuse patient.[facility] the event this information is protected by the Federal Confidentiality of Alcohol and Drug Abuse Patient Records regulations: The Federal rules restrict any use of the information to criminally investigate or prosecute any alcohol or drug abuse patient.[facility] the event this information is protected by the Federal Confidentiality of Alcohol and Drug Abuse Patient Records regulations: The Federal rules restrict any use of the information to criminally investigate or prosecute any alcohol or drug abuse patient.[facility] the event this information is protected by the Federal Confidentiality of Alcohol and Drug Abuse Patient Records regulations: The Federal rules restrict any use of the information to criminally investigate or prosecute any alcohol or drug abuse patient.[facility]ronIn the event this information is protected by the Federal Confidentiality of Alcohol and Drug Abuse Patient Records regulations: The Federal rules restrict any use of the information to criminally investigate or prosecute any alcohol or drug abuse patient.[facility]ronIn the event this information is protected by the Federal Confidentiality of Alcohol and Drug Abuse Patient Records regulations: The Federal rules restrict any use of the information to criminally investigate or prosecute any alcohol or drug abuse patient.[facility]ronIn the event this information is protected by the Federal Confidentiality of Alcohol and Drug Abuse Patient Records regulations: The Federal rules restrict any use of the information to criminally investigate or prosecute any alcohol or drug abuse patient.[facility]ronIn the event this information is protected by the Federal Confidentiality of Alcohol and Drug Abuse Patient Records regulations: The Federal rules restrict any use of the information to criminally investigate or prosecute any alcohol or drug abuse patient.[facility]ronIn the event this information is protected by the Federal Confidentiality of Alcohol and Drug Abuse Patient Records regulations: The Federal rules restrict any use of the information to criminally investigate or prosecute any alcohol or drug abuse patient.[facility]ronIn the event this information is protected by the Federal Confidentiality of Alcohol and Drug Abuse Patient Records regulations: The Federal rules restrict any use of the information to criminally investigate or prosecute any alcohol or drug abuse patient.[facility]ronIn the event this information is protected by the Federal Confidentiality of Alcohol and Drug Abuse Patient Records regulations: The Federal rules restrict any use of the information to criminally investigate or prosecute any alcohol or drug abuse patient.[facility]ronIn the event this information is protected by the Federal Confidentiality of Alcohol and Drug Abuse Patient Records regulations: The Federal rules restrict any use of the information to criminally investigate or prosecute any alcohol or drug abuse patient.[facility]ronIn the event this information is protected by the Federal Confidentiality of Alcohol and Drug Abuse Patient Records regulations: The Federal rules restrict any use of the information to criminally investigate or prosecute any alcohol or drug abuse patient.[facility]ronIn the event this information is protected by the Federal Confidentiality of Alcohol and Drug Abuse Patient Records regulations: The Federal rules restrict any use of the information to criminally investigate or prosecute any alcohol or drug abuse patient.[facility]ronIn the event this information is protected by the Federal Confidentiality of Alcohol and Drug Abuse Patient Records regulations: The Federal rules restrict any use of the information to criminally investigate or prosecute any alcohol or drug abuse patient.[facility]ronIn the event this information is protected by the Federal Confidentiality of Alcohol and Drug Abuse Patient Records regulations: The Federal rules restrict any use of the information to criminally investigate or prosecute any alcohol or drug abuse patient.[facility]ronIn the event this information is protected by the Federal Confidentiality of Alcohol and Drug Abuse Patient Records regulations: The Federal rules restrict any use of the information to criminally investigate or prosecute any alcohol or drug abuse patient.[facility]ronIn the event this information is protected by the Federal Confidentiality of Alcohol and Drug Abuse Patient Records regulations: The Federal rules restrict any use of the information to criminally investigate or prosecute any alcohol or drug abuse patient.[facility]ronIn the event this information is protected by the Federal Confidentiality of Alcohol and Drug Abuse Patient Records regulations: The Federal rules restrict any use of the information to criminally investigate or prosecute any alcohol or drug abuse patient.[facility]ronIn the event this information is protected by the Federal Confidentiality of Alcohol and Drug Abuse Patient Records regulations: The Federal rules restrict any use of the information to criminally investigate or prosecute any alcohol or drug abuse patient.[facility]ronIn the event this information is protected by the Federal Confidentiality of Alcohol and Drug Abuse Patient Records regulations: The Federal rules restrict any use of the information to criminally investigate or prosecute any alcohol or drug abuse patient.[facility]ronIn the event this information is protected by the Federal Confidentiality of Alcohol and Drug Abuse Patient Records regulations: The Federal rules restrict any use of the information to criminally investigate or prosecute any alcohol or drug abuse patient.[facility]ronIn the event this information is protected by the Federal Confidentiality of Alcohol and Drug Abuse Patient Records regulations: The Federal rules restrict any use of the information to criminally investigate or prosecute any alcohol or drug abuse patient.[facility]ronIn the event this information is protected by the Federal Confidentiality of Alcohol and Drug Abuse Patient Records regulations: The Federal rules restrict any use of the information to criminally investigate or prosecute any alcohol or drug abuse patient.[facility]ronIn the event this information is protected by the Federal Confidentiality of Alcohol and Drug Abuse Patient Records regulations: The Federal rules restrict any use of the information to criminally investigate or prosecute any alcohol or drug abuse patient.[facility]ronIn the event this information is protected by the Federal Confidentiality of Alcohol and Drug Abuse Patient Records regulations: The Federal rules restrict any use of the information to criminally investigate or prosecute any alcohol or drug abuse patient.[facility]ronIn the event this information is protected by the Federal Confidentiality of Alcohol and Drug Abuse Patient Records regulations: The Federal rules restrict any use of the information to criminally investigate or prosecute any alcohol or drug abuse patient.[facility]ronIn the event this information is protected by the Federal Confidentiality of Alcohol and Drug Abuse Patient Records regulations: The Federal rules restrict any use of the information to criminally investigate or prosecute any alcohol or drug abuse patient.[facility]ronIn the event this information is protected by the Federal Confidentiality of Alcohol and Drug Abuse Patient Records regulations: The Federal rules restrict any use of the information to criminally investigate or prosecute any alcohol or drug abuse patient.[facility]ronIn the event this information is protected by the Federal Confidentiality of Alcohol and Drug Abuse Patient Records regulations: The Federal rules restrict any use of the information to criminally investigate or prosecute any alcohol or drug abuse patient.[facility]ronIn the event this information is protected by the Federal Confidentiality of Alcohol and Drug Abuse Patient Records regulations: The Federal rules restrict any use of the information to criminally investigate or prosecute any alcohol or drug abuse patient.[facility]ronIn the event this information is protected by the Federal Confidentiality of Alcohol and Drug Abuse Patient Records regulations: The Federal rules restrict any use of the information to criminally investigate or prosecute any alcohol or drug abuse patient.[facility]ronIn the event this information is protected by the Federal Confidentiality of Alcohol and Drug Abuse Patient Records regulations: The Federal rules restrict any use of the information to criminally investigate or prosecute any alcohol or drug abuse patient.[facility] [place]ronIn the event this information is protected by the Federal Confidentiality of Alcohol and Drug Abuse Patient Records regulations: The Federal rules restrict any use of the information to criminally investigate or prosecute any alcohol or drug abuse patient.[facility] [place]ronIn the event this information is protected by the Federal Confidentiality of Alcohol and Drug Abuse Patient Records regulations: The Federal rules restrict any use of the information to criminally investigate or prosecute any alcohol or drug abuse patient.[facility] [place]ronIn the event this information is protected by the Federal Confidentiality of Alcohol and Drug Abuse Patient Records regulations: The Federal rules restrict any use of the information to criminally investigate or prosecute any alcohol or drug abuse patient.[facility] [place]ronIn the event this information is protected by the Federal Confidentiality of Alcohol and Drug Abuse Patient Records regulations: The Federal rules restrict any use of the information to criminally investigate or prosecute any alcohol or drug abuse patient.[facility] [place]ronIn the event this information is protected by the Federal Confidentiality of Alcohol and Drug Abuse Patient Records regulations: The Federal rules restrict any use of the information to criminally investigate or prosecute any alcohol or drug abuse patient.[facility] [place]ronIn the event this information is protected by the Federal Confidentiality of Alcohol and Drug Abuse Patient Records regulations: The Federal rules restrict any use of the information to criminally investigate or prosecute any alcohol or drug abuse patient.[facility] [place]ronIn the event this information is protected by the Federal Confidentiality of Alcohol and Drug Abuse Patient Records regulations: The Federal rules restrict any use of the information to criminally investigate or prosecute any alcohol or drug abuse patient.[facility] [place]ronIn the event this information is protected by the Federal Confidentiality of Alcohol and Drug Abuse Patient Records regulations: The Federal rules restrict any use of the information to criminally investigate or prosecute any alcohol or drug abuse patient.[facility] [place]ronIn the event this information is protected by the Federal Confidentiality of Alcohol and Drug Abuse Patient Records regulations: The Federal rules restrict any use of the information to criminally investigate or prosecute any alcohol or drug abuse patient.[facility] [place]ronIn the event this information is protected by the Federal Confidentiality of Alcohol and Drug Abuse Patient Records regulations: The Federal rules restrict any use of the information to criminally investigate or prosecute any alcohol or drug abuse patient.[facility] [place]ronIn the event this information is protected by the Federal Confidentiality of Alcohol and Drug Abuse Patient Records regulations: The Federal rules restrict any use of the information to criminally investigate or prosecute any alcohol or drug abuse patient.[facility] [place]ronIn the event this information is protected by the Federal Confidentiality of Alcohol and Drug Abuse Patient Records regulations: The Federal rules restrict any use of the information to criminally investigate or prosecute any alcohol or drug abuse patient.[facility] the event this information is protected by the Federal Confidentiality of Alcohol and Drug Abuse Patient Records regulations: The Federal rules restrict any use of the information to criminally investigate or prosecute any alcohol or drug abuse patient.[facility] [place]ronIn the event this information is protected by the Federal Confidentiality of Alcohol and Drug Abuse Patient Records regulations: The Federal rules restrict any use of the information to criminally investigate or prosecute any alcohol or drug abuse patient.[facility] [place]ronIn the event this information is protected by the Federal Confidentiality of Alcohol and Drug Abuse Patient Records regulations: The Federal rules restrict any use of the information to criminally investigate or prosecute any alcohol or drug abuse patient.[facility] [place]ronIn the event this information is protected by the Federal Confidentiality of Alcohol and Drug Abuse Patient Records regulations: The Federal rules restrict any use of the information to criminally investigate or prosecute any alcohol or drug abuse patient.[facility] [place]ronIn the event this information is protected by the Federal Confidentiality of Alcohol and Drug Abuse Patient Records regulations: The Federal rules restrict any use of the information to criminally investigate or prosecute any alcohol or drug abuse patient.[facility]ronIn the event this information is protected by the Federal Confidentiality of Alcohol and Drug Abuse Patient Records regulations: The Federal rules restrict any use of the information to criminally investigate or prosecute any alcohol or drug abuse patient.[facility] [place]ronIn the event this information is protected by the Federal Confidentiality of Alcohol and Drug Abuse Patient Records regulations: The Federal rules restrict any use of the information to criminally investigate or prosecute any alcohol or drug abuse patient.[facility] [place]ronIn the event this information is protected by the Federal Confidentiality of Alcohol and Drug Abuse Patient Records regulations: The Federal rules restrict any use of the information to criminally investigate or prosecute any alcohol or drug abuse patient.[facility] [place]ronIn the event this information is protected by the Federal Confidentiality of Alcohol and Drug Abuse Patient Records regulations: The Federal rules restrict any use of the information to criminally investigate or prosecute any alcohol or drug abuse patient.[facility] [place]ronIn the event this information is protected by the Federal Confidentiality of Alcohol and Drug Abuse Patient Records regulations: The Federal rules restrict any use of the information to criminally investigate or prosecute any alcohol or drug abuse patient.[facility] [place]ronIn the event this information is protected by the Federal Confidentiality of Alcohol and Drug Abuse Patient Records regulations: The Federal rules restrict any use of the information to criminally investigate or prosecute any alcohol or drug abuse patient.[facility]ronIn the event this information is protected by the Federal Confidentiality of Alcohol and Drug Abuse Patient Records regulations: The Federal rules restrict any use of the information to criminally investigate or prosecute any alcohol or drug abuse patient.[facility]ronIn the event this information is protected by the Federal Confidentiality of Alcohol and Drug Abuse Patient Records regulations: The Federal rules restrict any use of the information to criminally investigate or prosecute any alcohol or drug abuse patient.[facility]ronIn the event this information is protected by the Federal Confidentiality of Alcohol and Drug Abuse Patient Records regulations: The Federal rules restrict any use of the information to criminally investigate or prosecute any alcohol or drug abuse patient.[facility]ronIn the event this information is protected by the Federal Confidentiality of Alcohol and Drug Abuse Patient Records regulations: The Federal rules restrict any use of the information to criminally investigate or prosecute any alcohol or drug abuse patient.[facility]ronIn the event this information is protected by the Federal Confidentiality of Alcohol and Drug Abuse Patient Records regulations: The Federal rules restrict any use of the information to criminally investigate or prosecute any alcohol or drug abuse patient.[facility] [place]ronIn the event this information is protected by the Federal Confidentiality of Alcohol and Drug Abuse Patient Records regulations: The Federal rules restrict any use of the information to criminally investigate or prosecute any alcohol or drug abuse patient.[facility]ronIn the event this information is protected by the Federal Confidentiality of Alcohol and Drug Abuse Patient Records regulations: The Federal rules restrict any use of the information to criminally investigate or prosecute any alcohol or drug abuse patient.[facility]ronIn the event this information is protected by the Federal Confidentiality of Alcohol and Drug Abuse Patient Records regulations: The Federal rules restrict any use of the information to criminally investigate or prosecute any alcohol or drug abuse patient.[facility]ronIn the event this information is protected by the Federal Confidentiality of Alcohol and Drug Abuse Patient Records regulations: The Federal rules restrict any use of the information to criminally investigate or prosecute any alcohol or drug abuse patient.[facility]ronIn the event this information is protected by the Federal Confidentiality of Alcohol and Drug Abuse Patient Records regulations: The Federal rules restrict any use of the information to criminally investigate or prosecute any alcohol or drug abuse patient.[facility]ronIn the event this information is protected by the Federal Confidentiality of Alcohol and Drug Abuse Patient Records regulations: The Federal rules restrict any use of the information to criminally investigate or prosecute any alcohol or drug abuse patient.[facility] [place]ronIn the event this information is protected by the Federal Confidentiality of Alcohol and Drug Abuse Patient Records regulations: The Federal rules restrict any use of the information to criminally investigate or prosecute any alcohol or drug abuse patient.[facility] [place]ronIn the event this information is protected by the Federal Confidentiality of Alcohol and Drug Abuse Patient Records regulations: The Federal rules restrict any use of the information to criminally investigate or prosecute any alcohol or drug abuse patient.[facility]ronIn the event this information is protected by the Federal Confidentiality of Alcohol and Drug Abuse Patient Records regulations: The Federal rules restrict any use of the information to criminally investigate or prosecute any alcohol or drug abuse patient.[facility]ronIn the event this information is protected by the Federal Confidentiality of Alcohol and Drug Abuse Patient Records regulations: The Federal rules restrict any use of the information to criminally investigate or prosecute any alcohol or drug abuse patient.[facility]ronIn the event this information is protected by the Federal Confidentiality of Alcohol and Drug Abuse Patient Records regulations: The Federal rules restrict any use of the information to criminally investigate or prosecute any alcohol or drug abuse patient.[facility]ronIn the event this information is protected by the Federal Confidentiality of Alcohol and Drug Abuse Patient Records regulations: The Federal rules restrict any use of the information to criminally investigate or prosecute any alcohol or drug abuse patient.[facility]ronIn the event this information is protected by the Federal Confidentiality of Alcohol and Drug Abuse Patient Records regulations: The Federal rules restrict any use of the information to criminally investigate or prosecute any alcohol or drug abuse patient.[facility] [place]ronIn the event this information is protected by the Federal Confidentiality of Alcohol and Drug Abuse Patient Records regulations: The Federal rules restrict any use of the information to criminally investigate or prosecute any alcohol or drug abuse patient.[facility]ronIn the event this information is protected by the Federal Confidentiality of Alcohol and Drug Abuse Patient Records regulations: The Federal rules restrict any use of the information to criminally investigate or prosecute any alcohol or drug abuse patient.[facility]ronIn the event this information is protected by the Federal Confidentiality of Alcohol and Drug Abuse Patient Records regulations: The Federal rules restrict any use of the information to criminally investigate or prosecute any alcohol or drug abuse patient.[facility]ronIn the event this information is protected by the Federal Confidentiality of Alcohol and Drug Abuse Patient Records regulations: The Federal rules restrict any use of the information to criminally investigate or prosecute any alcohol or drug abuse patient.[facility] Reason for Visit (unrecogniz ed section and [...] of plate 2 week ago seen in [facility] ER on 05/09/23.Was treated with cephalexin [...] catch herself from falling Reason Comments Results [employer] - Other Reason Comments Letter for [employer]ity [...] Reason Comments Hospital Follow Up Reason Comments [facility] nursing Reason Comments Hospital F/U dehydration c/o righ t knee goes out on her Reason Comments patient assistance Reason Comments Rx refill; not on current med list Reason Comments Consult Specialty Diagnoses / Procedures Referred By Aminata t Referred To Contact Internal Medicine / GERIATRICS [...] 40 MIN 4C EXCEPTION Joon Lopez MD [facility] [place] [address] Xochitl Castrejon MD [address] [place] [address] Referral ID Status Reason Start Date Expiration Date Visits Re quested Visits Authorized [id number] Closed 08/03/2024 11/01/2024 1 1 Reason Comments Appointment Reason Comments Urinary Problem Frequency, cloudy, c onfusion x 1 week Reason Comments UTI X2 days, family stat es confusion, pt denies symptoms Reason Comments Recheck Specialty Diagnoses / Procedures Referred By Contac t Referred To Contact MR IMAGING Diagnoses Cognitive impairment, mild, so stated Procedures MRI BRAIN W QUANT WO IVCON MRI BRAIN BRAIN STEM W/O CONTRAST MATERIAL Xochitl Castrejon MD [facility] [place] [address] [place] [address] Referral ID Status Reason Start Date Expiration Date V isits Requested Visits Authorized [id number] Closed Auto-Generate d Referral 09/09/2024 10/25/2024 1 1 Reason Onset Date Comments Refill Request 10/31/2024 Reason Comments Follow Up Mri 09/28/25 Reason Onset Date Comments Refill Request 11/24/2024 Reason Comments F/U Diabetes 3 Month having sleep issues - problems going to sleep Reason Onset Date Comments Refill Request 12/27/2024 Reason Onset Date Comments Refill Request 01/04/2025 Reason Comments Urinary Problem Having balance issue s, increased confusion x 4 days Reason Comments Urinary Problem Memory issues, cade ce off x 2 days Reason Comments Follow Up Geriatric follow up Reason Comments Medical alert necklace Reason Comments F/U 3 Month pain in knees no rec ent x-ray Care Teams (unrecognized sec tion and content) Heavy Equipment Field Mechanic Relationship Specialty Start Date End Date Joon Lopez MD [address] [place], [place] [id number] PCP - General 08/18/02 Heavy Equipment Field Mechanic Relationship Specialty Start Date End Date Joon Lopez MD [facility] [place], [place] [id number] PCP - General 08/18/02 Heavy Equipment Field Mechanic Relationship Specialty Start Date End Date Joon Lopez MD [address] [place], [place] [id number] PCP - General 08/18/02 Heavy Equipment Field Mechanic Relationship Specialty Start Date End Date Joon Lopez MD [address] [facility] [place] [address] PCP - General 08/18/02 Heavy Equipment Field Mechanic Relationship Specialty Start Date End Date Joon Lopez MD [address] [facility] [place] [address] PCP - General 08/18/02 Heavy Equipment Field Mechanic Relationship Specialty Start Date End Date Joon Lopez MD [facility] [place] [address] PCP - General 08/18/02 Heavy Equipment Field Mechanic Relationship Specialty Start Date End Date Joon Lopez MD [address] [place] [address], [place] [address] PCP - General 08/18/02 Heavy Equipment Field Mechanic Relationship Specialty Start Date End Date Joon Lopez MD [facility] [place] [address] PCP - General 08/18/02 Heavy Equipment Field Mechanic Relationship Specialty Start Date End Date Joon Lopez MD [address] [facility] [place] [address] PCP - General 08/18/02 Heavy Equipment Field Mechanic Relationship Specialty Start Date End Date Joon Lopez MD [facility] [place] [address] PCP - General 08/18/02 Heavy Equipment Field Mechanic Relationship Specialty Start Date End Date Joon Lopez MD [facility] [place] [address] PCP - General 08/18/02 Heavy Equipment Field Mechanic Relationship Specialty Start Date End Date Joon Lopez MD [address] [place] [address], [place] [address] PCP - General 08/18/02 Team Status: Active Member Role Status Dates Dr. Joon Lopez MD Family Provider Active Dr. Joon Lopez MD Primary Care Provider Active Team Status: Inactive Member Role Status Dates Dr. Joon Lopez MD Primary Care Provider, Referr ing Provider Active Leeanna Mascorro SUBSTATION SUPERVISOR, SUBSTATION SUPERVISOR-C Attending Provider Active Team Status: Inactive Member Role Status Dates Dr. Joon Lopez MD Primary Care Provider, Referr ing Provider Active Liana Valles Attending Provider Active Team Status: Inactive Member Role Status Dates Dr. Joon Lopez MD Primary Care Provider, Referr ing Provider Active Tavo Langston PA, PA Attending Provider Active Team Status: Inactive Member Role Status Dates Dr. Joon Lopez MD Primary Care Provider, Family Provider Active Dr. Grant Ko MD Other Provider Active Adi Quevedo SUBSTATION SUPERVISOR, SUBSTATION SUPERVISOR-C Other Provider Active Lisandra Cao PA, PA Other Provider Active Dr. Sharan Chandra MD Attending Provider, Referring Provider Active Heavy Equipment Field Mechanic Relationship Specialty Start Date End Date Joon Lopez MD [address] [place] [address] PCP - General 08/18/02 Heavy Equipment Field Mechanic Relationship Specialty Start Date End Date Joon Lopez MD [address] [place] [address] PCP - General 08/18/02 Heavy Equipment Field Mechanic Relationship Specialty Start Date End Date Joon Lopez MD [address] [place] [address] PCP - General 08/18/02 Heavy Equipment Field Mechanic Relationship Specialty Start Date End Date Joon Lopez MD [address] [place] [address] PCP - General 08/18/02 Heavy Equipment Field Mechanic Relationship Specialty Start Date End Date Joon Lopez MD [address] [place] [address] PCP - General 08/18/02 Team Status: Active Member Role Status Dates Dr. Joon Lopez MD Primary Care Provider, Referr ing Provider Active Liana Valles Attending Provider Active Team Status: Inactive Member Role Status Dates Dr. Joon Lopez MD Primary Care Provider Active Dr. Nedra Rivero DO Attending Provider, Emergency Pro vider Active Team Status: Inactive Member Role Status Dates Dr. Joon Lopez MD Primary Care Provider Active Dr. Pete Che MD Attending Provider, Emergency Provider Active Heavy Equipment Field Mechanic Relationship Specialty Start Date End Date Joon Lopez MD [address] [place] [address] PCP - General 08/18/02 Team Status: Inactive Member Role Status Dates Dr. Joon Lopez MD Primary Care Provider Active Dr. Abdifatah Lemon MD Emergency Provider Active Heavy Equipment Field Mechanic Relationship Specialty Start Date End Date Joon Lopez MD [address] [place] [address] PCP - General 08/18/02 Team Status: Inactive Member Role Status Dates Dr. Joon Lopez MD Primary Care Provider Active Dr. Abdifatah Lemon MD Attending Provider, Emergency Pro vider Active Team Status: Inactive Member Role Status Dates Dr. Joon Lopez MD Primary Care Provider Active Dr. Freddy Robert MD Emergency Provider Active Heavy Equipment Field Mechanic Relationship Specialty Start Date End Date Joon Lopez MD [address] [place] [address] PCP - General 08/18/02 Heavy Equipment Field Mechanic Relationship Specialty Start Date End Date Joon Lopez MD [address] [place] [address] PCP - General 08/18/02 Team Status: Inactive Member Role Status Dates Dr. Joon Lopez MD Primary Care Provider Active Dr. Freddy Robert MD Attending Provider, Emergency Provi kimberly Active Team Status: Active Member Role Status Dates Dr. Joon Lopez MD Primary Care Provider Active Dr. Naeem Myers DPM Attending Provider Active Dr. Freddy Robert MD Referring Provider Active Team Status: Inactive Member Role Status Dates Dr. Joon Lopez MD Primary Care Provider Active Dr. Naeem Myers DPM Attending Provider Active Dr. Freddy Robert MD Referring Provider Active Heavy Equipment Field Mechanic Relationship Specialty Start Date End Date Joon Lopez MD [address] [place] [address] PCP - General 08/18/02 Team Status: Inactive Member Role Status Dates Dr. Joon Lopez MD Primary Care Provider, Referr ing Provider Active Lisandra Cao PA, PA Attending Provider Active Team Status: Active Member Role Status Dates Dr. Joon Lopez MD Primary Care Provider Active Dr. Bang Emerson MD Attending Provider, Referring Pro vider Active Team Status: Active Member Role Status Dates Dr. Joon Lopez MD Primary Care Provider, Family Provider Active Dr. Grant Ko MD Other Provider Active Adi Quevedo SUBSTATION SUPERVISOR, SUBSTATION SUPERVISOR-C Other Provider Active Lisandra Cao PA, PA Other Provider Active Dr. Sharan Chandra MD Attending Provider, Referring Provider Active Team Status: Inactive Member Role Status Dates Dr. Joon Lopez MD Primary Care Provider Active Dr. Pete Che MD Emergency Provider Active Heavy Equipment Field Mechanic Relationship Specialty Start Date End Date Joon Lopez MD [address] [place] [address] PCP - General 08/18/02 Heavy Equipment Field Mechanic Relationship Specialty Start Date End Date Joon Lopez MD [address] [place] [address] PCP - General 08/18/02 Heavy Equipment Field Mechanic Relationship Specialty Start Date End Date Joon Lopez MD [address] [facility] [place] [address] PCP - General 08/18/02 Team Status: Inactive Member Role Status Dates Dr. Joon Lopez MD Primary Care Provider Active Dr. Bang Emerson MD Attending Provider, Referring Pro vider Active Team Status: Inactive Member Role Status Dates Dr. Joon Lopez MD Primary Care Provider Active Dr. Brooke Willingham MD Emergency Provider Active Team Status: Inactive Member Role Status Dates Dr. Joon Lopez MD Primary Care Provider, Referr ing Provider Active Dr. Tone Alberto DO Attending Provider Active Team Status: Inactive Member Role Status Dates Dr. Joon Lopez MD Primary Care Provider Active Dr. Bang Emerson MD Attending Provider Active Team Status: Active Member Role Status Dates Dr. Joon Lopez MD Primary Care Provider Active Dr. Tone Alberto DO Referring Provider, Other Provide r Active Dr. Ravi Zazueta MD Attending Provider Active Team Status: Inactive Member Role Status Dates Dr. Joon Lopez MD Primary Care Provider Active Dr. Brooke Willingham MD Attending Provider, Emergency Provider Active Team Status: Active Member Role Status Dates Dr. Joon Lopez MD Primary Care Provider Active Dr. Tone Alberto DO Attending Provider, Referring Pro vider Active Team Status: Inactive Member Role Status Dates Dr. Joon Lopez MD Primary Care Provider Active Dr. Juan Carlos Torre DO Emergency Provider Active Team Status: Inactive Member Role Status Dates Dr. Joon Lopez MD Primary Care Provider Active Dr. Tone Alberto DO Attending Provider, Referring Pro vider Active Team Status: Active Member Role Status Dates Dr. Joon Lopez MD Primary Care Provider Active Dr. Tone Alberto DO Attending Provider, Referring Provider, Other Provider Active Team Status: Inactive Member Role Status Dates Dr. Joon Lopez MD Primary Care Provider Active Dr. Juan Carlos Torre DO Attending Provider, Emergency Provider Active Heavy Equipment Field Mechanic Relationship Specialty Start Date End Date Joon Lopez MD [address] [place] [address] PCP - General 08/18/02 Team Status: Active Member Role Status Dates Dr. Joon Lopez MD Primary Care Provider Active Dr. Abdifatah Lemon MD Emergency Provider Active Dr. Kassi Fisher MD Admit Provider, Other Provider Active Dr. Josesito Miller MD Attending Provider, Other Provi kimberly Active Dr. Devyn Samaniego MD Other Provider Active Team Status: Inactive Member Role Status Dates Dr. Joon Lopez MD Primary Care Provider Active Dr. Abdifatah Lemon MD Emergency Provider Active Dr. Kassi Fisher MD Admit Provider, Other Provider Active Dr. Josesito Miller MD Attending Provider Active Dr. Devyn Samaniego MD Other Provider Active Heavy Equipment Field Mechanic Relationship Specialty Start Date End Date Joon Lopez MD [address] [place] [address] PCP - General 08/18/02 Team Status: Inactive Member Role Status Dates Dr. Joon Lopez MD Primary Care Provider, Referr ing Provider Active Dr. Ravi Garcia MD Attending Provider Active Team Status: Active Member Role Status Dates Dr. Joon Lopez MD Primary Care Provider Active Dr. Naeem Adamson MD Attending Provider Active Dr. Kevin Stewart MD Referring Provider Active Team Status: Active Member Role Status Dates Dr. Joon Lopez MD Primary Care Provider, Family Provider Active Adi Quevedo SUBSTATION SUPERVISOR, SUBSTATION SUPERVISOR-C Other Provider Active Lisandra JENKINS PA Attending Provider, Referr ing Provider Active Team Status: Inactive Member Role Status Dates Dr. Joon Lopez MD Primary Care Provider Active Dr. Devyn Samaniego MD Attending Provider, Referr ing Provider Active Team Status: Inactive Member Role Status Dates Dr. Joon Lopez MD Primary Care Provider, Family Provider Active Adi Quevedo SUBSTATION SUPERVISOR, SUBSTATION SUPERVISOR-C Other Provider Active Lisandra Cao PA, PA Attending Provider, Referr ing Provider Active Heavy Equipment Field Mechanic Relationship Specialty Start Date End Date Joon Lopez MD [address] [place], [place] [address] PCP - General 08/18/02 Team Status: Active Member Role Status Dates Dr. Joon Lopez MD Primary Care Provider Active Dr. Miguel Perera DO Emergency Provider Active Dr. Josesito Miller MD Admit Provider, A ttending Provider, Other Provider Active Team Status: Active Member Role Status Dates Dr. Joon Lopez MD Primary Care Provider Active Dr. Miguel Perera DO Emergency Provider Active Dr. Josesito Miller MD Admit Provider, Attending Provi kimberly Active Team Status: Active Member Role Status Dates Dr. Joon Lopez MD Primary Care Provider Active Dr. Miguel Perera DO Emergency Provider Active Dr. Josesito Miller MD Admit Provider, Other Provider Active Dr. Tonio Glass , Attending Provider, Other Provider Active Dr. Devyn Samaniego MD Other Provider Active Team Status: Inactive Member Role Status Dates Dr. Joon Lopez MD Primary Care Provider Active Dr. Miguel Perera DO Emergency Provider Active Dr. Josesito Miller MD Admit Provider, Other Provider Active Dr. Tonio Glass , Attending Provider Active Dr. Devyn Samaniego MD Other Provider Active Heavy Equipment Field Mechanic Relationship Specialty Start Date End Date Joon Lopez MD [address] [place] [address] PCP - General 08/18/02 Heavy Equipment Field Mechanic Relationship Specialty Start Date End Date Joon Lopez MD [address] [place], [place] [address] PCP - General 08/18/02 Heavy Equipment Field Mechanic Relationship Specialty Start Date End Date Joon Lopez MD [address] [place] [address] PCP - General 08/18/02 Heavy Equipment Field Mechanic Relationship Specialty Start Date End Date Joon Lopez MD [address] [place] [address] PCP - General 08/18/02 Heavy Equipment Field Mechanic Relationship Specialty Start Date End Date Joon Lopez MD [address] [place] [address] PCP - General 08/18/02 Heavy Equipment Field Mechanic Relationship Specialty Start Date End Date Joon Lopez MD [address] [place] [address] PCP - General 08/18/02 Heavy Equipment Field Mechanic Relationship Specialty Start Date End Date Joon Lopez MD [address] [place] [address] PCP - General 08/18/02 Heavy Equipment Field Mechanic Relationship Specialty Start Date End Date Joon Lopez MD [address] [place] [address] PCP - General 08/18/02 Heavy Equipment Field Mechanic Relationship Specialty Start Date End Date Joon Lopez MD [address] [place] [address] PCP - General 08/18/02 Heavy Equipment Field Mechanic Relationship Specialty Start Date End Date Joon Lopez MD [address] [place] [address] PCP - General 08/18/02 Heavy Equipment Field Mechanic Relationship Specialty Start Date End Date Joon Lopez MD [address] [place] [address] PCP - General 08/18/02 Heavy Equipment Field Mechanic Relationship Specialty Start Date End Date Joon Lopez MD [address] [place] [address] PCP - General 08/18/02 Heavy Equipment Field Mechanic Relationship Specialty Start Date End Date Joon Lopez MD [address] [place] [address] PCP - General 08/18/02 Heavy Equipment Field Mechanic Relationship Specialty Start Date End Date Joon Lopez MD [address] [place] [address] PCP - General 08/18/02 Heavy Equipment Field Mechanic Relationship Specialty Start Date End Date Joon Lopez MD [address] [place] [address] PCP - General 08/18/02 Heavy Equipment Field Mechanic Relationship Specialty Start Date End Date Joon Lopez MD [address] [place] [address] PCP - General 08/18/02 Heavy Equipment Field Mechanic Relationship Specialty Start Date End Date Joon Lopez MD [address] [place] [address] PCP - General 08/18/02 Heavy Equipment Field Mechanic Relationship Specialty Start Date End Date Joon Lopez MD [address] [place] [address] PCP - General 08/18/02 Heavy Equipment Field Mechanic Relationship Specialty Start Date End Date Joon Lopez MD [address] [place] [address] PCP - General 08/18/02 Heavy Equipment Field Mechanic Relationship Specialty Start Date End Date Joon Lopez MD [address] [place] [address] PCP - General 08/18/02 Trini Tang, JOSE DANIEL.WILDLAND FIREFIGHTER [address] [place] [address] [employer]ording [employer] Intern Internal Medicine 10/03/24 Whitney Hammond APRN.RADAR ENGINEERING TEACHER [address] [place] [address] Recording Studio Intern Internal Medicine 10/03/24 Heavy Equipment Field Mechanic Relationship Specialty Start Date End Date Joon Lopez MD [address] [place] [address] PCP - General 08/18/02 Trini Tang HYDRATION PLANT OPERATOR.WILDLAND FIREFIGHTER [address] [place] [address] Recording Studio Intern Internal Medicine 10/03/24 Whitney Hammond APRN.RADAR ENGINEERING TEACHER [address] [place] [address] Recording Studio Intern Internal Medicine 10/03/24 Heavy Equipment Field Mechanic Relationship Specialty Start Date End Date Joon Lopez MD [address] [place] [address] PCP - General 08/18/02 Trini Tang HYDRATION PLANT OPERATOR.WILDLAND FIREFIGHTER [address] [place] [address] Recording Studio Intern Internal Medicine 10/03/24 Whitney Hammond APRN.RADAR ENGINEERING TEACHER [address] [place] [address] Recording Studio Intern Internal Medicine 10/03/24 Heavy Equipment Field Mechanic Relationship Specialty Start Date End Date Joon Lopez MD [address] [facility] [place] [address] PCP - General 08/18/02 Trini Tang, HYDRATION PLANT OPERATOR.WILDLAND FIREFIGHTER [address] [facility] [place] [address] Recording Studio Intern Internal Medicine 10/03/24 Whitney Hammond HYDRATION PLANT OPERATOR.RADAR ENGINEERING TEACHER [address] [facility] [place] [address] [facility] Internal Medicine 10/03/24 Heavy Equipment Field Mechanic Relationship Specialty Start Date End Date Joon Lopez MD [address] [facility] [place] [address] PCP - General 08/18/02 Trini Tagn, HYDRATION PLANT OPERATOR.WILDLAND FIREFIGHTER [address] [facility] [place] [address] Recording Studio Intern Internal Medicine 10/03/24 Whitney Hammond HYDRATION PLANT OPERATOR.RADAR ENGINEERING TEACHER [address] [facility] [place] [address] [facility] Internal Medicine 10/03/24 Heavy Equipment Field Mechanic Relationship Specialty Start Date End Date Joon Lopez MD [address] [facility] [place] [address] PCP - General 08/18/02 Trini Tang, HYDRATION PLANT OPERATOR.WILDLAND FIREFIGHTER [address] [facility] [place] [address] [facility] Internal Medicine 10/03/24 Whitney Hammond HYDRATION PLANT OPERATOR.RADAR ENGINEERING TEACHER [address] [facility] [place] [address] Recording Studio Intern Internal Medicine 10/03/24 Heavy Equipment Field Mechanic Relationship Specialty Start Date End Date Joon Lopez MD [address] [facility] [place] [address] PCP - General 08/18/02 Trini Tang, HYDRATION PLANT OPERATOR.WILDLAND FIREFIGHTER [address] [facility] [place] [address] Recording Studio Intern Internal Medicine 10/03/24 Whitney Hammond HYDRATION PLANT OPERATOR.RADAR ENGINEERING TEACHER [address] [facility] [place] [address] [facility] Internal Medicine 10/03/24 Heavy Equipment Field Mechanic Relationship Specialty Start Date End Date Joon Lopez MD [address] [facility] [place] [address] PCP - General 08/18/02 Trini Tang, HYDRATION PLANT OPERATOR.WILDLAND FIREFIGHTER [address] [facility] [place] [address] Recording Studio Intern Internal Medicine 10/03/24 Whitney Hammond HYDRATION PLANT OPERATOR.RADAR ENGINEERING TEACHER [address] [facility] [place] [address] [facility] Internal Medicine 10/03/24 Team Status: Active Member Role Status Dates Dr. Joon Lopez MD Primary Care Provider Active Team Status: Inactive Member Role Status Dates Dr. Joon Lopez MD Primary Care Provider Active Start: September 19, 2024 End: September 24, 2024 Dr. Joon Lopez MD Family Provider Active Start: September 19, 2024 End: September 24, 2024 Adi Quevedo SUBSTATION SUPERVISOR, SUBSTATION SUPERVISOR-C Other Provider Active Start : September 19, 2024 End: September 24, 2024 Lisandra Cao PA, PA Attending Provider Active Start: September 19, 2024 End: September 24, 2024 Lisandra Cao PA, PA Referring Provider Active Start: September 19, 2024 End: September 24, 2024 Dr. Xochitl Castrejon MD Other Provider Active Star t: September 19, 2024 End: September 24, 2024 Team Status: Inactive Member Role Status Dates Dr. Joon Lopez MD Primary Care Provider Active Start: November 01, 2024 End: November 01, 2024 Dr. Joon Lopez MD Family Provider Active Start: November 01, 2024 End: November 01, 2024 Adi Quevedo SUBSTATION SUPERVISOR, SUBSTATION SUPERVISOR-C Other Provider Active Start : November 01, 2024 End: November 01, 2024 Lisandra Cao PA, PA Attending Provider Active Start: November 01, 2024 End: November 01, 2024 Lisandra Cao PA, PA Referring Provider Active Start: November 01, 2024 End: November 01, 2024 Dr. Xochitl Castrejon MD Other Provider Active Star t: November 01, 2024 End: November 01, 2024 Team Status: Inactive Member Role Status Dates Dr. Joon Lopez MD Primary Care Provider Active Start: December 09, 2024 End: December 09, 2024 Dr. Joon Lopez MD Referring Provider Active Start: December 09, 2024 End: December 09, 2024 Leeanna Mascorro SUBSTATION SUPERVISOR, SUBSTATION SUPERVISOR-C Attending Provider Active Start: December 09, 2024 End: December 09, 2024 Team Status: Inactive Member Role Status Dates Dr. Joon Lopez MD Primary Care Provider Active Start: January 04, 2025 End: January 04, 2025 Manuel Sanchez MD Emergency Provider Active Star t: January 04, 2025 End: January 04, 2025 Team Status: Inactive Member Role Status Dates Dr. Joon Lopez MD Primary Care Provider Active Start: January 04, 2025 End: January 04, 2025 Manuel Sanchez MD Attending Provider Active Star t: January 04, 2025 End: January 04, 2025 Manuel Sanchez MD Emergency Provider Active Star t: January 04, 2025 End: January 04, 2025 Team Status: Inactive Member Role Status Dates Dr. Joon Lopez MD Primary Care Provider Active Start: January 12, 2025 End: January 12, 2025 Dr. Joon Lopez MD Family Provider Active Start: January 12, 2025 End: January 12, 2025 Adi Quevedo SUBSTATION SUPERVISOR, SUBSTATION SUPERVISOR-C Other Provider Active Start : January 12, 2025 End: January 12, 2025 Lisandra Cao PA, PA Attending Provider Active Start: January 12, 2025 End: January 12, 2025 Lisandra Cao PA, PA Referring Provider Active Start: January 12, 2025 End: January 12, 2025 Dr. Xochitl Castrejon MD Other Provider Active Star t: January 12, 2025 End: January 12, 2025 Heavy Equipment Field Mechanic Relationship Specialty Start Date End Date Joon Lopez MD [address] [facility] [place] [address] PCP - General 08/18/02 Trini Tang APRN.WILDLAND FIREFIGHTER [address] [facility] [place] [address] Recording Studio Intern Internal Medicine 10/03/24 Whitney Hammond APRN.RADAR ENGINEERING TEACHER [address] [facility] [place] [address] Recording Studio Intern Internal Medicine 01/17/25 Heavy Equipment Field Mechanic Relationship Specialty Start Date End Date Joon Lopez MD [address] [facility] [place] [address] PCP - General 08/18/02 Trini Tang APRN.WILDLAND FIREFIGHTER [address] [facility] [place] [address] Recording Studio Intern Internal Medicine 10/03/24 Whitney Hammond APRN.RADAR ENGINEERING TEACHER [address] [facility] [place] [address] Recording Studio Intern Internal Medicine 01/17/25 Heavy Equipment Field Mechanic Relationship Specialty Start Date End Date Joon Lopez MD [address] [place] [address] PCP - General 08/18/02 Trini Tang, HYDRATION PLANT OPERATOR.WILDLAND FIREFIGHTER [address] [facility] [place] [address] Recording Studio Intern Internal Medicine 10/03/24 Whitney Hammond HYDRATION PLANT OPERATOR.RADAR ENGINEERING TEACHER [address] [facility] [place] [address] [facility] Internal Medicine 01/17/25 Heavy Equipment Field Mechanic Relationship Specialty Start Date End Date Joon Lopez MD [address] [facility] [place] [address] PCP - General 08/18/02 Trini Tang, HYDRATION PLANT OPERATOR.WILDLAND FIREFIGHTER [address] [facility] [place] [address] Recording Studio Intern Internal Medicine 10/03/24 Whitney Hammond, HYDRATION PLANT OPERATOR.RADAR ENGINEERING TEACHER [address] [facility] [place] [address] [facility] Internal Medicine 01/17/25 Heavy Equipment Field Mechanic Relationship Specialty Start Date End Date Joon Lopez MD [address] [facility] [place] [address] PCP - General 08/18/02 Trini Tang, HYDRATION PLANT OPERATOR.WILDLAND FIREFIGHTER [address] [facility] [place] [address] Recording Studio Intern Internal Medicine 10/03/24 Whitney Hammond HYDRATION PLANT OPERATOR.RADAR ENGINEERING TEACHER [address] [facility] [place] [address] [facility] Internal Medicine 01/17/25 Heavy Equipment Field Mechanic Relationship Specialty Start Date End Date Joon Lopez MD [address] [facility] [place] [address] PCP - General 08/18/02 Trini Tang, HYDRATION PLANT OPERATOR.WILDLAND FIREFIGHTER [address] [facility] [place] [address] [employer]ording [employer] Intern Internal Medicine 10/03/24 Whitney Hammond HYDRATION PLANT OPERATOR.RADAR ENGINEERING TEACHER [address] [facility] [place] [address] [facility] 01/17/25 Heavy Equipment Field Mechanic Relationship Specialty Start Date End Date Joon Lopez MD [address] [facility] [place] [address] PCP - General 08/18/02 Trini Tang, HYDRATION PLANT OPERATOR.WILDLAND FIREFIGHTER [address] [facility] [place] [address] [facility] Internal Medicine 10/03/24 Whitney Hammond HYDRATION PLANT OPERATOR.RADAR ENGINEERING TEACHER [address] [facility] [place] [address] [facility] 01/17/25 Team Status: Inactive Member Role Status Dates Dr. Joon Lopez MD Primary Care Provider Active Start: March 23, 2025 End: March 23, 2025 Dr. Joon Lopez MD Family Provider Active Start: March 23, 2025 End: March 23, 2025 Adi Quevedo SUBSTATION SUPERVISOR, SUBSTATION SUPERVISOR-C Other Provider Active Start : March 23, 2025 End: March 23, 2025 Lisandra JENKINS PA Attending Provider Active Start: March 23, 2025 End: March 23, 2025 GREGORY Zapien Referring Provider Active Start: March 23, 2025 End: March 23, 2025 Dr. Xochitl Castrejon MD Other Provider Active Star t: March 23, 2025 End: March 23, 2025 FOR RECORDS PERTAINING TO PATIENTS WHO ARE [...] BE BASED ON THE PRIMARY CLINICAL RECORDS. [employer] [facility]. provides no warranty or guarantee of the accuracy or completeness of information in this document.
== END | disposition home or self-care (01) ==
LOC: LABSPEC 17:40
PROVIDERS: PCP Internal Medicine; Visit Provider Physician Assistant Medical
DX: Z00.00 Encounter for general adult medical examination without abnormal findings (principal)

== ENCOUNTER → 2025-05-11 | Outpatient (CLI) | payer MEDICARE, SELFPAY ==
[2025-05-11 18:35] LABS: Prothrombin Time (Protime)PT. 15.8 SECONDS (11.7-14.9)
== END | disposition home or self-care (01) ==
LOC: LABSPEC 17:56
PROVIDERS: PCP Internal Medicine; Visit Provider Physician Assistant Medical
DX: D68.52 Prothrombin gene mutation (principal); Z79.01 Long term (current) use of anticoagulants
CPT/HCPCS: 85610

== ENCOUNTER 2025-06-07 20:05 | Emergency (ER) | payer MEDICARE, SELFPAY ==
[2025-06-07 20:05] VITALS: BP 133/75; PULSE 71; RESP 16; TEMP 36.4; O2SAT 95; BMI 28.8
--- NOTE | 2025-06-07 20:34 | CT_ITS ---
PROCEDURE: BRAIN/HEAD WITHOUT CONTRAST 06/07/2025 REASON FOR EXAM: INJURY TECHNIQUE: BRAIN/HEAD WITHOUT CONTRAST Coronal and Sagittal reconstruction series were provided. One or more dose reduction techniques were used (e.g., Automated exposure control, adjustment of the mA and/or kV according to patient size, use of iterative reconstruction technique. RADIATION DOSE SUMMARY: CTDlvol: 45 mGy DLP: 816 mGycm COMPARISON: 06/01/2024 FINDINGS: Diffuse atrophy. Arterial calcifications. Old cerebellar infarcts. Mild white matter change. No acute abnormal brain densities. No intracranial hemorrhage. No hydrocephalus or midline shift. Left anterior scalp hematoma. Bilateral lens extraction. Clear sinuses. No skull fracture. CT/Brain/Head without Contrast IMPRESSION: No acute intracranial findings Reading Location: [place] [id number]
--- NOTE | 2025-06-07 20:34 | CT_ITS ---
EXAM: CT Cervical Spine Without Intravenous Contrast CLINICAL INDICATION: INJURY TECHNIQUE: Axial computed tomography images of the cervical spine without intravenous contrast. This CT exam was performed using one or more of the following dose reduction techniques: automated exposure control, adjustment of the mA and/or kV according to patient size, and/or use of iterative reconstruction technique. COMPARISON: No relevant prior studies available. FINDINGS: VERTEBRAE: Degenerative facet arthropathy throughout the cervical spine. No acute fracture. DISCS/SPINAL CANAL/NEURAL FORAMINA: Degenerative disc disease throughout the cervical spine. SOFT TISSUES: Unremarkable. CT/Spine Cervical without Contras IMPRESSION: 1. No acute fracture. 2. Degenerative changes of the cervical spine as described. Reading Location: [id number]
--- NOTE | 2025-06-07 21:00 | RAD_ITS ---
PROCEDURE: KNEE 4 OR MORE VIEWS 06/07/2025 REASON FOR EXAM: INJURY TECHNIQUE: KNEE 4 OR MORE VIEWS Laterality: Right COMPARISON: 06/08/2021 FINDINGS: Mild medial femorotibial joint space narrowing, chondrocalcinosis, osteophytes. Arterial calcifications. No acute bone, joint, or soft tissue pathology. RAD/Knee 4 or More Views IMPRESSION: Mild CPPD osteoarthropathy. Reading [facility]
[2025-06-07 21:09] LABS: Hematocrit 38.5 % (37-47); Hemoglobin 13.1 g/dL (12.0-15.0); Immature Granulocytes Count 0.030 X10^3/uL (0.0-0.0); Mean Corp Hgb Conc 34.0 g/dL (32-36); Mean Corpuscular Volume 95.5 fL (81-99); Mean Platelet Vol. 10.0 fl (6.2-12.0); NRBC Flagged by Analyzer 0 % (0-5); Platelet Count 144 K/mm3 (150-450); RBC Distribution Width CV 12.2 % (11.6-14.6); RBC Distribution Width SD 42.6 fl (35.1-43.9); Red Blood Count 4.03 M/mm3 (4.2-5.4); White Blood Count 6.8 K/mm3 (4.4-11.0)
--- OUTSIDE RECORDS SUMMARY | 2025-06-07 21:12 | XMS RPT_ITS | CCD ---
Author Organization [facility] Care Team Providers Care Vp Client Services Name Role Phone Meño BOONE, Clarisse Kenya Unavailable Unavaila Kim Sullivan Unavailable Unavailable Dr. Joon Lopez Primary Care Provider Dr. Joon Lopez Referring Provider Ludwin STRAW HAT BRUSHER, STRAW HAT BRUSHER-C Leeanna Attending Provider Dr. Sharan Chandra Attending [...] Dr. Joon Lopez Primary Care Provider Ludwin STRAW HAT BRUSHER, STRAW HAT BRUSHER-C Leeanna Attending Provider Dr. Joon Lopez Primary Care Provider Dr. Joon Lopez Referring Provider Dr. Joon Lopez Primary Care Provider Dr. Joon Lopez Referring Provider Ludwin PATHAK, STRAW HAT BRUSHER-C Leeanna Attending Provider Liana Valles Attending Provider Unavailable Dr. Bang Emerson Attending Provider Dr. Bang Emerson Referring Provider GREGORY Singer Attending Provider Dr. Joon Lopez Primary Care Provider Dr. Joon Lopez Referring Provider Ludwin STRAW HAT BRUSHER, STRAW HAT BRUSHER-C Leeanna Attending Provider [phone] GREGORY Singer Attending Provider Dr. Joon Lopez Primary Care Provider Dr. Bang Emerson Attending Provider [phone] Bang Emerson Referring Provider [phone] Joon Lopez Referring Provider Liana Valles Attending Provider Unavailable Dr. Tone Alberto Attending Provider 1([facility])[phone] Tone Alberto Referring Provider Dr. Tone Alberto Other Provider Dr. Ravi Zazueta Attending Provider 1([facility])[phone] Abdifatah Lemon Emergency Provider 1([facility])[phone] Kassi Fisher Admit Provider 1([facility])[phone] Kassi Fisher Other Provider 1([facility])[phone]. Josesito Miller Attending Provider 1([facility])[phone] Dr. Josesito Miller Other Provider 1([facility])[phone] Devyn Samaniego Other Provider 1([facility])[phone] Dr. Joon Lopez Primary Care Provider Dr. Bang Emerson Attending Provider [phone] Bang Emerson Referring Provider [phone] Joon Lopez Referring Provider 1([facility])[phone] Liana Valles Attending Provider Unavailable Dr. Tone Alberto Attending Provider 1([facility])[phone] Tone Alberto Referring Provider Dr. Tone Alberto Other Provider Dr. Ravi Zazueta Attending Provider 1([facility])[phone] Naeem Adamson Attending Provider Dr. Kevin Stewart Referring Provider 1([facility])[phone] Abdifatah Lemon Emergency Provider 1([facility])[phone] Kassi Fisher Admit Provider 1([facility])[phone] Kassi Fisher Other Provider 1([facility])[phone] Josesito Miller Attending Provider Dr. Josesito Miller Other Provider Dr. Devyn Samaniego Other Provider Dr. Ravi Garcia Attending Provider GREGORY Singer Attending Provider DR JOON LOPEZ MD Primary Care Physician Dr. oJon Lopez Primary Care Provider Dr. Bang Emerson Attending Provider Dr. Bang Emerson Referring Provider Dr. Miguel Perera Emergency Provider Dr. Josesito Miller Admit Provider Dr. Tonio Glass Attending Provider Dr. Tonio Glass Other Provider RUBIO GONZALEZ DO Attending Unavailable JOHN NICOLE, DR DUPREE Primary Care Unavailable Joon Lopez MD Primary Care Provider XOCHITL CASTREJON Referring Unavailable JOON LOPEZ Primary Care Unavailable Tang 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.PACKAGING OPERATOR, Trini Unavailable Stephany 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.MANAGER FRONT, Whitney Unavailable Stephany 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.MANAGER FRONT, Whitney Unavailable Dr. Joon Lopez MD Primary Care Provider [phone] Sae PATHAK-Adi Perales Other Provider Lisandra Singer Attending Provider Lisandra Singer Referring Provider Dr. Xochitl Castrejon MD Other Provider Dr. Joon Lopez MD Referring Provider Leeanna Blanton Attending Provider Manuel Sanchez MD Emergency Provider [phone] Joon Lopez MD Primary Care Provider [phone] [facility] STRAW HAT BRUSHER-CAdi Other Provider Lisandra Singer Attending Provider [phone] Lisandra Singer Referring Provider [phone] Dr. Xochitl Castrejon MD Other Provider Manuel Sanchez MD Attending Provider Stephany 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.MANAGER FRONT, Whitney Unavailable Dr. Joon Lopez MD Primary Care Provider [phone] [facility] STRAW HAT BRUSHER-CAdi Other Provider Lisandra Singer Attending Provider [phone] Lisandra Singer Referring Provider [phone] Carmelita NICOLE, Dr. Sousa Other Provider Tang 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.PACKAGING OPERATOR, Trini Unavailable TALAMPAS, JOON D Referring Unavailable TALAMPAS, JOON D Primary Care Unavailable STEPHANY, WHITNEY Attending Unavailable TALAMPAS, JOON D Primary Care Unavailable TALAMPAS, JOON D Referring Unavailable TALAMPAS, JOON D Primary Care Unavailable GANTA, XOCHITL Attending Unavailable TALAMPAS, JOON D Referring Unavailable TALAMPAS, JOON D Primary Care Unavailable GANTA, XOCHITL Attending Unavailable SELF Referring Unavailable TALAMPAS, JOON D Primary Care Unavailable TALAMPAS, JOON D Primary Care Unavailable TALAMPAS, JOON D Primary Care Unavailable PETE CASTREJONRA Attending Unavailable SELF Referring Unavailable TALAMPAS, JOON D Primary Care Unavailable STEPHANY, WHITENY Attending Unavailable SELF Referring Unavailable TALAMPAS, JOON D Primary Care Unavailable STEPHANY, WHITNEY Referring Unavailable TALAMPAS, JOON D Primary Care Unavailable TALAMPAS, JOON D Primary Care Unavailable TALAMPAS, JOON D Attending Unavailable SELF Referring Unavailable TALAMPAS, JOON D Primary Care Unavailable GANTA, XOCHITL Attending Unavailable SELF Referring Unavailable TALAMPAS, JOON D Primary Care Unavailable TALAMPAS, JOON D Primary Care Unavailable TALAMPAS, JOON D Primary Care Unavailable TALAMPAS, JOON D Attending Unavailable TALAMPAS, JOON D Primary Care Unavailable Chetanampas MD, Dr. Joon D Primary Care Provider [phone] Sae PATHAK-Adi Perales Other Provider Lisandra Singer Attending Provider [phone] Lisandra Sniger Referring Provider [phone] Dr. Xochitl Castrejon MD Other Provider Talampas, Joon D Primary Care Unavailable Abdifatah Lemon Attending Unavailable Miguel Perera Attending Unavailable Talampas, Joon D Primary Care Unavailable Talampas, Joon D Primary Care Unavailable Manuel Sanchez Attending Unavailable Kassi Fisher Attending Unavailable Talampas, Joon D Primary Care Unavailable Kelsey Martinezyn Consulting Unavailable Alea Martinez Admitting Unavailable Sae STRAW HAT BRUSHER, Adi Stanton Consulting Unavailable Talampas, Joon D Primary Care Unavailable Lisandra Singer Attending Unavail able Lisadnra Singer Referring Unavail able Talampas, Joon D Primary Care Unavailable Talampas, Joon D Attending Unavailable Talampas, Joon D Attending Unavailable Talampas, Joon D Primary Care Unavailable Talampas, Joon D Attending Unavailable Talampas, Joon D Primary Care Unavailable Talampas, Joon D Primary Care Unavailable Idania, Glidden Referring Unavailable Idania, Bang Attending Unavailable Juan, Alea Admitting Unavailable Talampas, Joon D Primary Care Unavailable Juan, Alea Consulting Unavailable Juan, Alea Attending Unavailable Talampas, Joon D Primary Care Unavailable Idania, Glidden Attending Unavailable Talampas, Joon D Referring Unavailable Talampas, Joon D Primary Care Unavailable Leeanna Mascorro NP Attending Unavailable Sae STRAW HAT BRUSHER, Adi Stanton Consulting Unavailable Talampas, Joon D Primary Care Unavailable Lisandra Singer Attending Unavail able Lisandra Singer Referring Unavail able Xochitl Castrejon Consulting Unavailable Roof STRAW HAT BRUSHER, Adi H Consulting Unavailable Talampas, Joon D Primary Care Unavailable Lisandra Singer Referring Unavail able Lisandra Singer Attending Unavail able Xochitl Castrejon Consulting Unavailable Viktoriya, Tamy Attending Unavailable Viktoriya, Tamy Referring Unavailable Talampas, Joon D Primary Care Unavailable Talampas, Joon D Primary Care Unavailable Idania, Glidden Referring Unavailable Idania, Bang Attending Unavailable Sae STRAW HAT BRUSHER, Adi H Consulting Unavailable Talampas, Joon D Primary Care Unavailable Lisandra Singer Attending Unavail able Kiley JENKINS, Lisandra Manrique Referring Unavail able Ganta, Xochitl Consulting Unavailable Roof STRAW HAT BRUSHER, Adi H Consulting Unavailable Talampas, Joon D Primary Care Unavailable Lisandra Singer Attending Unavail able Kiley JENKINS, Lisandra Manrique Referring Unavail able Ganta, Xochitl Consulting Unavailable Roof STRAW HAT BRUSHER, Adi H Consulting Unavailable Talampas, Joon D Primary Care Unavailable Lisandra Singer Referring Unavail able Kiley PA, Lisandra Manrique Attending Unavail able Ganta, Xochitl Consulting Unavailable Roof STRAW HAT BRUSHER, Adi H Consulting Unavailable Talampas, Joon D Primary Care Unavailable Kiley JENKINS, Lisandra Manrique Referring Unavail able Lisandra Singer Attending Unavail able Ganta, Xochitl Consulting Unavailable Talampas, Joon D Attending Unavailable Talampas, Joon D Primary Care Unavailable Talampas, Joon D Attending Unavailable Talampas, Joon D Primary Care Unavailable Talampas, Joon D Attending Unavailable Talampas, Joon D Primary Care Unavailable WhiteKassi Attending Unavailable White, Kassi L Consulting Unavailable Talampas, Joon D Referring Unavailable Talampas, Joon D Primary Care Unavailable Naeem Adamson Attending Unavailable Talampas, Joon D Referring Unavailable Talampas, Joon D Primary Care Unavailable Idania, Bang Attending Unavailable Talampas, Joon D Primary Care Unavailable Idania, Bang Referring Unavailable Idania, Glidden Attending Unavailable Talampas, Joon D Referring Unavailable Talampas, Joon D Primary Care Unavailable Leeanna Mascorro NP Attending Unavailable Roof STRAW HAT BRUSHER, Adi H Consulting Unavailable Talampas, Joon D Primary Care Unavailable Lisandra Singer Referring Unavail able Kiley JENKINS, Lisandra Manrique Attending Unavail able Ganta, Xochitl Consulting Unavailable Talampas, Joon D Primary Care Unavailable Idania, Bang Attending Unavailable Idania, Glidden Referring Unavailable Talampas, Joon D Primary Care Unavailable Lisandra Singer Attending Unavail able Talampas, Joon D Primary Care Unavailable Lisandra Singer Attending Unavail able White Kassi L Attending Unavailable Talampas, Joon D Primary Care Unavailable Alea Martinez Admitting Unavailable Alea Martinez Consulting Unavailable Kassi Fisher Consulting Unavailable Miguel Perera Attending Unavailable Joon Lopez Primary Care Unavailable Allergies Allergy Classification Reported Allergen(s) Allergy Type Date of Onset Reaction(s) Facility Aspirin (1 source) Aspirin Drug Allergy 9 [facility] [place] Work Phone: Penicillins (antibiotic) (1 source) Amoxicillin Drug Allergy 5 [facility] Sulfonamides (antibiotic) (1 source) Sulfonamides (Antibiotic) Drug Allergy 5 [facility] tiZANidine (1 source) tiZANidine Drug Allergy 3 Mental Status Change, Other: See Comments [facility] [place] Work Phone: (20 sources) amoxicillin; Translations: [amoxicillin] Drug Allergy 5 [facility] Work Phone: (20 sources) aspirin; Translations: [ASPIRIN] Drug Allergy 9 [facility]; SOB, Hives, SOB [facility] Work Phone: (2 sources) sulfaSALAzine Drug Allergy 5 [facility] Work Phone: (4 sources) PROAIR RESPICLICK; Translations: [PROAIR RESPICLICK] allergy to substance 6 Lack of efficiency [facility] Work Phone: (20 sources) Sulfonamides (Antibiotic); Translations: [SULFA (SULFONAMIDE ANTIBIOTICS)] Allergy to substance 5 [facility] (20 sources) tiZANidine; Translations: [TIZANIDINE] Drug Allergy 3 Mental Status Change, Other: See Comments [facility] [place] Work Phone: (1 source) Penicillin; Translations: [penicillin] Drug Allergy [facility] (1 source) Sulfamethoxazole; Translations: [sulfamethoxazole ] Drug Allergy [facility] (1 source) Amoxicillin Drug Allergy 5 [facility] (1 source) Aspirin Drug Allergy 5 [facility] Medications Current Medications Medication Drug Class(es) Dates Sig (Normalized) Sig (Original) acetaminophen 500 mg oral tablet (6 sources) Start: 05-06-2024 take 2 tablets by [...] HOURS NEEDED as needed for Pain 12 3 0 August 21, 2024 Fracture of right wrist Start: 06-10-2024 End: 07-01-2024 Oxycodone-Acetaminophen 5-32 5 mg tablet Discontinued 1 {tbl} PO daily as needed for pain 0 June 10, 2024 12:00am July 01, 2024 [...] 6 HOURS as needed for pain 12 3 0 May 04, 2024 May 04, 2024 10:02pm Contusion of rib on right side Contusion of right front wall of thorax, initial encounter Start: 07-01-2022 End: 09-15-2022 oxyCODONE-acetaminophen (PER COCET) 5-325 mg tablet Indications: DDD (degenerative disc disease), lumbar , Acute pain of left knee , Sprain of left knee, unspecified ligament, initial encounter , Severe low back pain Last filled February 0 07/01/2022 09/15/2022 Discontinued Start: 12-07-2020 End: 11-22-2021 oxyCODONE-acetaminophen (PER COCET) 5-325 mg tablet Take 5-325 mg by mouth twice daily. As needed 0 12/07/2020 11/22/2021 Discontinued Start: 12-07-2020 End: 05-04-2024 Oxycodone-Acetaminophen 5-32 5 mg tablet Discontinued 1 {tbl} PO Q8H as needed for severe pain (scale score 7-10) 0 December 07, 2020 1:00am May 04, 2024 [...] Ordered Blood-Glucose Meter (Onetouch Verio Flex Meter) [facility] (6 sources) Start: Blood-Glucose Meter (Onetouch Verio Flex Meter) [facility] Active NMA .ROUTE .MEDSUPPLY July 01, 2024 [...] daily. docusate sodium 100 mg oral capsule (6 sources) Start: 08-21-2024 take 1 capsule by mouth twice daily Docusate Sodium (Colace) 100 mg capsule Active 100 mg PO TWICE A DAY 60 0 August 21, 2024 12:00am donepezil hydrochloride 10 [...] Discontinued 100 mg PO TWICE A DAY 14 0 September 19, 2019 1:00am November 04, 2019 [...] inh one puff twice daily FLUTICASONE FUROATE-VILANTEROL [id number] Leeanna Mascorro MANAGER FRONT Magnesium complex 400 mg (1 source) Start: 01-28-2024 take 1 dose by mouth once daily Magnesium complex 400 mg Dose = 400 mg, Oral, Daily, 0 Refill(s) Start Date: 01/28/24 Status: Ordered magnesium oxide 400 mg oral tablet (20 sources) Start: 04-13-2024 Magnesium Oxid e 400 mg magnesium tablet Active 250 mg PO DAILY April 13, 2024 10:01am SUPPLEMENT Start: 04-06-2024 End: 12-07-2024 take 1 tablet [...] 29, 2024 12:00am April 13, 2024 10:03am SUPPLEMENT Start: 06-17-2022 End: 01-13-2024 take 1 tablet by mouth once daily Magnesium Oxide 400 mg magnesium Tablet Discontinued 400 mg PO DAILY June 17, 2022 12:00am January 13, 2024 10:06am supplement Start: 11-18-2017 End: 03-22-2024 take 1 capsule by mouth once daily magnesium oxide 400 mg magnesium cap Take 400 mg by mouth once daily. 0 11/18/2017 03/22/2024 Discontinued Comment on above: Take 400 mg by mouth once daily. mecobalamin 1 mg chewable tablet (6 sources) Start: take 1 tablet by mouth once daily Mecobalamin (Vitamin B12) 1,000 mcg tablet,chewable Active 1000 ug PO DAILY April 13, 2024 12:00am montelukast 10 mg oral tablet (20 sources) Leukotriene Receptor Antagonist Start: End: 4 take 1 tablet by mouth once daily in the evening Montelukast 10 mg tablet Active 10 mg PO EVERY EVENING 90 July 26, 2024 11:36am Start: 04-04-2022 take 1 tablet by lg th once daily in the evening Montelukast (Singulair) 10 mg tablet Active 10 MG PO EVERY EVENING April 04, 2022 12:00am Start: 02-24-2019 End: 05-23-2019 take 1 tablet by mouth once daily in the evening Montelukast (Singulair) 10 mg tablet Discontinued 10 mg PO EVERY EVENING 30 3 February 24, 2019 12:00am May 23, 2019 [...] Discontinued 100 mg PO Q12H 14 7 0 June 10, 2024 12:00am June 16, 2024 [...] Discontinued 100 mg PO Q12H 14 7 0 August 04, 2022 12:00am August 10, 2022 12:00am August 11, 2022 12:03am must administer with a meal/food Start: 08-10-2017 End: 08-17-2017 NITROFURANTOIN MACROCRYSTAL 100 MG CAPS Take 1 capsule every 12 hours NITROFURANTOIN MACROCRYSTAL [id number] Soren JENKINS Comment on above: Take 1 [...] 12:00am Start: 04-05-2024 take 1 tablet by [facility] every hour oxybutynin ER (DITROPAN XL) 10 [...] 4 TIMES DAILY as needed for pain 0 July 01, 2024 12:00am August 20, 2024 [...] Dr. Mora, Pain Management manages Active sertraline 100 mg oral tablet (20 sources) Serotonin Reuptake Inhibitor Start: 05-11-2025 take 1 tablet by mouth once daily sertraline (ZOLOFT) 100 mg tablet Take 1 tablet by mouth once daily. 90 tablet 3 05/11/2025 Active Start: 08-03-2024 End: 05-11-2025 take 1 tablet by mouth once daily [...] mg/ml topical cream (20 sources) Corticosteroid Start: 07-11-2020 Triamcinolone Acetonide Active 1 GM TOPICAL NEEDED July 11, 2020 12:00am Start: 06-04-2020 End: 03-13-2025 triamcinolone acetonide (PASTORA ALOG) 0.1 % cream Indications: Rash of neck , Flexural atopic dermatitis Apply 1 application to affected area three times a day as needed. For rash 80 g 1 03/13/2025 Active Start: 04-30-2016 End: 05-11-2017 TRIAMCINOLONE ACETONIDE 0.1 % CREA One application to affected area three times daily as needed TRIAMCINOLONE ACETONIDE [id number] Clarisse Bai Comment on above: Apply 1 application to affected area three times daily as needed. For rash on extremities and leg trospium chloride 20 mg oral tablet (20 sources) Cholinergic Muscarinic Antagonist Start: 4 End: 5 take 1 tablet by mouth twice daily Trospium 20 mg tablet Active 20 mg PO TWICE A DAY August 20, 2024 12:00am vitamin b12 1 mg oral tablet (20 sources) Vitamin B12 Start: 4 End: 5 take 1 tablet by mouth once daily cyanocobalamin (VITAMIN B-12) 1,000 mcg tab Indications: B12 deficiency Take 1 tablet by mouth once daily. 90 tablet 3 12/07/2024 Active Completed/Discontinued Medications Medication Drug Class(es) Dates Sig (Normalized) Sig (Original) acetaminophen 325 mg / HYDROcodone bitartrate 5 mg oral tablet (20 sources) Opioid Agonist Start: 07-24-2020 End: 07-29-2020 Hydrocodone-Acetamino phen 1 TABLET tablet Discontinued 1 - 2 {tbl} PO EVERY 4 HOURS NEEDED as needed for Pain 15 5 0 July 24, 2020 July 28, 2020 12:00am July 29, 2020 12:02am Other acute postprocedural pain Start: 07-24-2020 End: 07-29-2020 take 1 tablet by mouth every four hours as needed Hydrocodone-Acetaminophen Discontinued 1 - 2 TABLET PO EVERY 4 HOURS NEEDED 15 5 July 24, 2020 July 29, 2020 12:02am Start: 07-10-2019 End: 07-16-2019 Hydrocodone-Acetaminophen 1 TABLET tablet Discontinued 1 {tbl} PO EVERY 4 HOURS NEEDED as needed for Pain 10 2 0 July 10, 2019 July 11, 2019 12:00am July 16, 2019 12:09am Pain, unspecified Start: 07-10-2019 End: 07-16-2019 take 1 tablet by mouth every four hours as needed Hydrocodone-Acetaminophen Discontinued 1 TABLET PO EVERY 4 HOURS NEEDED 10 2 July 10, 2019 July 16, 2019 12:09am Start: 08-14-2017 End: 05-23-2019 Hydrocodone-Acetaminophen 1 TABLET tablet Discontinued 1 - 2 {tbl} PO EVERY 6 HOURS NEEDED as needed for Pain 12 0 August 14, 2017 6:52pm May 23, 2019 1:09pm Start: 08-14-2017 End: 05-23-2019 take 1 tablet by mouth every six hours as needed Hydrocodone-Acetaminophen Discontinued 1 - 2 TABLET PO EVERY 6 HOURS NEEDED August 14, 2017 6:52pm May 23, 2019 1:09pm Start: 04-30-2016 End: 07-27-2017 HYDROCODONE-ACETAMINOPHEN 5- 325 MG TABS One tab twice daily as needed HYDROCODONE-ACETAMINOPHEN [id number] Clarisse Bai [id number] 200 actuat albuterol 0.09 mg/actuat metered dose inhaler (20 sources) beta2-Adrenergic Agonist Start: 05-24-2023 End: 05-27-2024 take 2 puff(s) by inhalation every four hours as needed for wheezing albuterol HFA (PROAIR HFA) 90 mcg/actuation inhaler Inhale 2 Puffs as instructed every 4 hours as needed for wheezing/shortness of breath. 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) 1 Inhaler 11 02/13/2022 05/22/2023 Discontinued [...] needed for shortness of breath or wheezing 8.5 6 May 24, 2023 6:07am November 26, 2023 11:42am administer with spacer Start: 11-18-2018 End: 11-26-2023 take 1 puff(s) by inhalation every four hours Albuterol Sulfate Discontinued 2 PUFF INHALATION Q4H 8.5 May 24, 2023 6:07am November 26, 2023 11:42am administer with spacer Start: 02-13-2018 End: 02-24-2019 Albuterol Sulfate (Proair Hf a) 90 mcg/actuation HFA aerosol inhaler Discontinued 2 NMA INHALATION EVERY 6 HOURS as needed for shortness of breath or wheezing 10 31February 25, 2018 9:30am February 24, 2019 9:59am Start: [...] every 4 hrs as needed ALBUTEROL SULFATE [id number] Leeanna Mascorro CNP Start: 09-23-2015 End: 12-25-2016 [...] hours as needed for wheezing/shortness of breath. 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) Albuterol Sulfate (Proair Hfa) 90 mcg/actuation HFA aerosol inhaler (20 sources) Start: 02-24-2019 End: 10-12-2019 Albuterol Sulfate (Proair Hfa) 90 mcg/actuation HFA aerosol inhaler Discontinued 2 NMA INHALATION Q4H as needed for shortness of breath or wheezing 1 February 24, 2019 9:57am October 12, 2019 12:34pm Start: 02-24-2019 End: 10-12-2019 Albuterol Sulfate (Proair Hf a) 90 mcg/actuation [...] One tablet by mouth twice daily APIXABAN [id number] Grant Ko MD atorvastatin 10 mg oral tablet (20 sources) HMG-CoA Reductase Inhibitor Start: 12-25-2016 End: 03-13-2025 take 1 tablet by mouth at bedtime Atorvastatin 10 mg tablet Discontinued 10 mg PO AT BEDTIME 90 3 May 08, 2019 9:04am December 11, 2019 [...] Inhale 2 Puffs as instructed twice daily. ([facility] pulmonology) 06/22/2023 06/29/2024 Discontinued Start: 06-22-2023 take 2 puff(s) by in halation twice daily budesonide-formoterol (SYMBICORT) 160-4.5 mcg/actuation inhaler Indications: Moderate persistent asthma without complication Inhale 2 Puffs as instructed twice daily. ([facility] pulmonology) 06/22/2023 Active Start: 06-22-2023 take 2 puff(s) by in halation twice daily budesonide-formoterol (SYMBICORT) 160-4.5 mcg/actuation inhaler Indications: Moderate persistent asthma without complication Inhale 2 Puffs as instructed twice daily. ([facility] pulmonology) 0 06/22/2023 Active Start: 04-23-2021 [...] 20, 2024 12:01pm July 01, 2024 8:23am asthma Start: 11-04-2018 End: 01-20-2024 take 1 puff(s) by inhalation twice daily Budesonide-Formoterol (Symbicort) 160-4.5 mcg/actuation HFA aerosol inhaler Discontinued 2 PUFF INHALATION TWICE A DAY 10.2 November 26, 2023 11:41am January 20, 2024 12:02pm Start: 11-12-2017 End: 2018 Budesonide-Formoterol (Symbi brittany) 160-4.5 mcg/actuation HFA aerosol inhaler Discontinued 2 NMA INHALATION TWICE A DAY 10 31November 12, 2017 1:00am 2018 9:30am administer with spacer, rinse mouth after each use Start: 11-12-2017 End: 2018 take 1 puff(s) by mouth twice daily Budesonide-Formoterol (Symbicort) 160-4.5 mcg/actuation HFA aerosol inhaler Discontinued 2 PUFF INHALATION TWICE A DAY November 12, 2017 1:00am 2018 9:30am administer [...] inh two puffs twice daily BUDESONIDE-FORMOTEROL FUMARATE [id number] Grant Ko MD Start: 09-23-2015 End: 12-25-2016 Budesonide-Formoterol (Symbi brittany 80-4.5 Mcg Inhaler) 1 INHALER inhaler Discontinued 2 PUFF INHALATION TWICE A DAY September 23, 2015 1:12pm December 25, 2016 1:01pm Start: 09-23-2015 End: 12-25-2016 Budesonide-Formoterol (Symbi brittany 80-4.5 Mcg Inhaler) 1 INHALER inhaler Discontinued 2 NMA INHALATION TWICE A DAY 1 September 23, 2015 1:00am December 25, 2016 [...] 2 Puffs as in structed twice daily. ([facility] pulmonology) cefdinir 300 mg oral capsule (20 [...] Discontinued 500 mg PO Q8H 28 7 0 May 04, 2024 12:00am May 04, 2024 10:01pm Start: 03-18-2023 End: 07-10-2023 take 1 capsule by mouth every six hours Cephalexin 500 mg capsule Discontinued 500 mg PO EVERY 6 HOURS 40 10 0 May 09, 2023 12:00am July 10, 2023 11:29am Start: 08-14-2017 End: 10-29-2017 take 1 capsule by mouth every six hours Cephalexin 500 MG capsule Discontinued 500 mg PO EVERY 6 HOURS 40 0 August 14, 2017 12:00am October 29, 2017 8:10am ciprofloxacin 500 mg oral tablet (20 sources) Quinolone Antimicrobial Start: 01-22-2024 End: 01-29-2024 take 1 tablet by mouth twice daily Ciprofloxacin Hcl (Cipro) 500 mg tablet Discontinued 500 mg PO TWICE A DAY 10 0 January 22, 2024 12:00am January 29, 2024 4:57pm Start: 12-31-2023 End: 01-06-2024 take 1 tablet by mouth twice daily Ciprofloxacin Hcl (Cipro) 500 mg tablet Discontinued 500 mg PO TWICE A DAY 12 6 0 December 31, 2023 1:00am January 06, 2024 [...] A DAY as needed for Muscle Spasm 20 0 November 28, 2023 1:00am December 31, 2023 [...] tab once daily as needed CYCLOBENZAPRINE HCL [id number] Clarisse Wilder LPN Comment on above: Take 0.5-1 tablets b y mouth twice daily as needed for muscle spasm (may make drowsy, take before bedtime). flecainide acetate 100 mg oral tablet (20 sources) Antiarrhythmic Start: 0 End: 1 take 1 tablet by mouth twice daily Flecainide 100 MG tablet Discontinued 100 mg PO TWICE A DAY July 16, 2020 12:00am December 07, 2020 12:07pm Start: 05-16-2019 End: 07-11-2020 take 1 tablet by mouth every twelve hours Flecainide 100 mg tablet Discontinued 100 mg PO Q12H 180 3 May 30, 2020 2:36pm July 11, 2020 10:32am Heart Start: 02-10-2019 End: 05-16-2019 take 1 tablet by mouth every twelve hours Flecainide 50 mg tablet Discontinued 50 mg PO Q12H 180 3 February 10, 2019 12:00am May 16, 2019 11:16am Start: 12-22-2017 End: 11-18-2018 take 1 tablet by mouth every twelve hours Flecainide 50 mg tablet Discontinued 50 mg PO Q12H 180 3 September 01, 2018 4:22pm November 18, 2018 8:49pm Fluticasone Propion-Salmeterol (20 sources) Corticosteroid, beta2-Adrenergic Agonist Start: 11-03-2017 End: 02-13-2018 take 1 puff(s) by inhalation twice daily Fluticasone Propion-Salmeterol (Advair Hfa) 115-21 mcg/actuation HFA aerosol inhaler Discontinued 2 PUFF INHALATION TWICE A DAY 1 November 03, 2017 11:34am February 13, 2018 12:11pm Start: 11-03-2017 End: 02-13-2018 Fluticasone Propion-Salmeter ol (Advair Hfa) 115-21 mcg/actuation HFA aerosol inhaler Discontinued 2 NMA INHALATION TWICE A DAY 10 28November 03, 2017 1:00am February 13, 2018 12:11pm [...] two puffs twice daily MOMETASONE FURO-FORMOTEROL FUM [id number] Leeanna Mascorro CNP gabapentin 300 mg oral capsule (20 sources) Anti-epileptic Agent Start: 12-11-2019 End: 07-27-2025 take 2 capsules by mouth at bedtime Gabapentin 300 mg capsule Active 600 mg PO AT BEDTIME August 04, 2022 9:15am Neuropathy Start: 12-11-2019 End: 08-04-2022 take 1 capsule by mouth at bedtime Gabapentin 300 mg capsule Discontinued 300 mg PO AT BEDTIME June 17, 2022 12:00am August 04, 2022 9:17am nerve pain Start: 12-11-2019 End: 08-04-2022 take 600 mg by mouth at bedtime Gabapentin Active 600 MG PO AT BEDTIME August 04, 2022 9:15am Comment on above: Take 2 capsules by m outh daily at bedtime AND 1 capsule every morning. Do all this for 180 days. glimepiride 2 mg oral tablet (20 sources) Sulfonylurea Start: 4 End: 08-16-202 4 take 1 tablet by mouth once daily Glimepiride 2 mg tablet Discontinued 2 mg PO DAILY April 13, 2024 12:00am June 10, 2024 10:40am Start: 03-22-2024 End: 03-13-2025 take 1 tablet by mouth twice daily Glimepiride 2 mg tablet Active 2 mg PO TWICE A DAY June 10, 2024 10:39am Start: 04-03-2023 End: 03-22-2024 glimepiride (AMARYL) 2 [...] 11, 2018 12:42pm June 07, 2020 10:49am DM takes if glucose >200 Start: 02-13-2018 End: 10-11-2018 take 1 tablet by mouth once daily in the morning Glimepiride 2 mg tablet Discontinued 2 mg PO EVERY MORNING February 13, 2018 12:00am October 11, 2018 12:42pm Start: 04-30-2016 AMARYL 2 MG TA BS One tab daily as needed for blood sugar over 250 GLIMEPIRIDE [id number] Clarisse Bai Start: 09-23-2015 End: 02-13-2018 take [...] over 200. (Has pills left from 2016) lidocaine 0.05 mg/mg medicated patch (13 sources) [...] Converting Enzyme Inhibitor Start: 11-03-19 End: 02-14-20 take 1 tablet by mouth once daily [...] 50 mg PO TWICE A DAY 180 3 December 05, 2019 5:00pm December 11, 2019 11:06pm Start: 02-13-2018 End: 05-16-2019 take 1 tablet by mouth once daily Losartan 50 mg tablet Discontinued 50 mg PO daily 90 3 October 14, 2018 12:35pm November 18, 2018 [...] One tablet by mouth daily LOSARTAN POTASSIUM [id number] Grant Ko MD Start: 12-25-2016 End: 08-14-2017 take 1 tablet by mouth once daily Losartan 25 MG tablet Discontinued 25 mg PO DAILY 30 0 December 25, 2016 1:00am August 14, 2017 [...] 13, 2024 10:02am May 06, 2024 1:32pm DM Start: 01-28-2024 MetFORMIN (Eqv -Fortamet) 1000 mg [...] 17, 2022 12:00am April 13, 2024 10:03am DM Start: 06-10-2021 End: 05-10-2024 take 1 tablet [...] tablet by mouth twice daily METFORMIN HCL [id number] Lisandra Walsh RN Start: 04-30-2016 METFORMIN HCL ER (MOD) 500 MG [id number] Two tabs twice daily with meals METFORMIN HCL [id number] Clarisse Bai Start: 09-23-2015 End: 02-13-2018 take [...] on above: Take [address] [facility] twice daily with meals. methocarbamol 500 mg [...] MG TBPK Take with f ood METHYLPREDNISOLONE [id number] Clarisse Wilder OPTOMETRIC COORDINATOR Start: 09-25-2016 MEDROL 4 MG TB PK Take with food METHYLPREDNISOLONE [id number] Clarisse Bai Comment on above: As Instructed per [facility] naproxen sodium 220 mg oral tablet (4 sources) Nonsteroidal Anti-inflammatory Drug Start: 016 End: 017 ALEVE 220 MG TABS Two tabs twice daily as needed NAPROXEN SODIUM [id number] Clarisse Bai nitrofurantoin, macrocrystals 100 mg oral capsule (20 sources) Nitrofuran Antibacterial Start: 024 End: 024 take 1 capsule by mouth twice daily at mealtime Nitrofurantoin Macrocrystal 100 mg capsule Discontinued 100 mg PO TWICE A DAY 10 5 0 May 06, 2024 12:00am June 10, 2024 10:39am must administer with a meal/food Start: 08-14-2017 End: 10-29-2017 take 1 capsule by mouth every twelve hours Nitrofurantoin Macrocrystal 100 MG capsule Discontinued 100 mg PO Q12H August 14, 2017 12:00am October 29, 2017 8:10am M[place]ley (20 sources) Start: 11-18-2018 End: 02-10-2019 take 50 mg by mouth twice daily M[place] Discontinued 50 MG PO TWICE A DAY November 18, 2018 7:49pm February 10, 2019 11:57am Start: 11-18-2018 End: 02-10-2019 take 50 mg by mouth twice daily [place] Discontinued 50 MG PO TWICE A DAY November 18, 2018 8:49pm February 10, 2019 12:57pm Mccaulley 50 mg tablet (6 sources) Start: 11-18-2018 End: 02-10-2019 take 1 tablet by mouth twice daily Mccaulley 50 mg tablet Discontinued 50 mg PO [...] every 8 hours as needed. PHENAZOPYRIDINE HCL [id number] Soren JENKINS potassium gluconate 2.5 meq oral [...] mg tablet Discontinued 60 mg PO daily 15 April 16, 2023 12:00am June 12, 2023 [...] mg tablet Discontinued 10 mg PO .COMPLEX 30 0 November 03, 2017 1:00am February 13, 2018 12:10pm Take 4 tabs daily for 3 days followed by 3 tab daily for 3 days followed by 2 tab daily for 3 days followed by 1 tab daily for 3 days Comment on above: Take [address] [facility] once daily for 5 days. TENS UNIT [...] thu as indicated Tens Unit Electrodes pad (6 sources) Start: 07-11-2020 End: 05-04-2024 Tens Unit Electrodes pad Discontinued 0 .ROUTE .MEDSUPPLY July 11, 2020 12:00am May 04, 2024 10:02pm pain As directed Start: 07-11-2020 End: 05-04-2024 Tens Unit Electrodes pad Dis continued 0 .ROUTE .MEDSUPPLY 2 July 11, 2020 [...] Comment on above: Take 1 tablet by [facility] every 8 hours as needed. warfarin sodium 5 mg oral tablet (20 sources) Vitamin K Antagonist Start: 01-17-2025 End: 05-15-2025 take 0.5 tablet by mouth once daily Warfarin 5 mg tablet Discontinued 5 mg PO .COMPLEX May 15, 2025 11:08am May 15, 2025 11:09am blood thinner 5 mg orally every day except 1/2 tablet (2.5 mg) on Sundays; OR as directed- Please give 90 tablets for periodic dose changes Please contact the information source for Protocol details. Start: 12-30-2023 End: 08-20-2024 Warfarin (Jantoven) 2.5 mg t ablet Discontinued 2.5 mg PO .COMPLEX December 30, 2023 1:00am August 20, 2024 8:47pm blood thinner 2.5 mg orally SUSA; Please contact the information source for Protocol details. Start: 06-17-2022 Warfarin Activ e 2.5 MG PO WETH June 16, 2022 11:00pm Start: 11-18-2018 End: 01-17-2025 take 1 tablet by mouth once daily Warfarin 5 MG tablet Discontinued 5 mg PO DAILY November 18, 2018 8:49pm January 17, 2025 10:15am blood thinner Please contact the information source for Protocol details. Start: 02-10-2018 End: 11-18-2018 take 1 tablet by mouth every week Warfarin 5 mg tablet Discontinued 5 mg PO .COMPLEX 100 3 May 24, 2018 1:42pm November 18, 2018 [...] 1 tablet by lg th once daily. Problems Active Problems Problem Classification Problem Date [...] Dr. Freed 04/01/19 Deficiency and other anemia (16 sources) Anemia; Translations: [Anemia, unspecified] 10-02-2023 Episodic Delirium, dementia, and amnestic and other cognitive disorders (19 sources) Dementia; Translations: [Mild dementia without behavioral [...] E Codes: Adverse effects of medical drugs (16 sources) Adverse reaction to drug; Translations: [Adverse effect of unspecified drugs, medicaments and biological substances, initial encounter] 10-02-2023 Episodic E Codes: Fall (20 sources) Fall; Translations: [Unspecified fall, initial encounter] 03-12-2020 Episodic Essential hypertension (20 sources) Essential hypertension; Translations: [Essential (primary) hypertension] Chronic Fluid and electrolyte disorders (1 source) Dehydration; Translations: [Dehydration] 03-14-2024 Episodic Fracture of upper limb (20 sources) Closed fracture of neck of radius; Translations: [Displaced fracture of neck of left radius, initial encounter for closed fracture] 11-09-2023 Episodic Fracture of upper limb (12 sources) Fracture of unspecified carpal bone, right [...] Asthenia; Translations: [Weakness] 06-25-2022 Episodic Mood disorders (4 sources) Moderate recurrent major depression; Translations: [Major depressive disorder, recurrent, moderate] 08-03-2024 Chronic Mood disorders (1 source) Mood disorders; Translations: [Depression, unspecified depression type] Onset: 05-11-2025 Nausea and vomiting (20 sources) Nausea and [...] Open wounds of head; neck; and trunk (7 sources) Scalp laceration; Translations: [Laceration without foreign body of scalp, sequela] 05-11-2024 Episodic Osteoarthritis (12 sources) Arthritis; Translations: [Unspecified osteoarthritis, unspecified site] 06-20-2024 Chronic Other aftercare (20 sources) Long-term current use of anticoagulant; Translations: [translational specialist (current) use of anticoagulants] 09-29-2019 Episodic Other aftercare (8 sources) Patient encounter status; Translations: [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] Episodic Other aftercare (2 sources) [facility] (current) use of anticoagulants; Translations: [[facility] (current) use of anticoagulants] Onset: 03-23-2025 Episodic Other circulatory disease (20 sources) H/O: atrial fibrillation; Translations: [Personal history of other diseases of the circulatory system] 06-24-2022 Episodic Other circulatory disease (15 sources) History of heart block; Translations: [Personal history of other diseases of the circulatory system] 11-09-2023 Episodic Other connective tissue disease (20 sources) Spasm; Translations: [Other muscle spasm] 03-28-2014 Episodic Other connective tissue disease (20 sources) Foot pain; Translations: [Pain in left foot] 05-28-2023 Episodic Other connective tissue disease (20 sources) Pain in left foot; Translations: [Pain in limb] 06-25-2023 Episodic Other connective tissue disease (6 sources) Pain in left arm; Translations: [Pain in left arm] 01-04-2025 Episodic Other diseases of kidney and ureters (11 sources) Mass of urinary system structure; Translations: [Other specified disorders of kidney and ureter] 12-30-2023 Chronic Other diseases of kidney and ureters (1 source) Other specified disorders of kidney and ureter; Translations: [Other specified disorders of kidney and ureter] 12-31-2023 Chronic Other diseases of kidney and ureters (18 sources) Hydronephrosis; Translations: [Unspecified hydronephrosis] 12-30-2023 Episodic [...] injuries and conditions due to external causes (18 sources) Closed injury of head; Translations: [Unspecified injury of head, initial encounter] 09-01-2023 Episodic Other injuries and conditions due to external causes (14 sources) History of fall; Translations: [History of falling] 11-26-2023 Episodic Other injuries and conditions due to external causes (3 sources) Other specified injuries of thorax, initial encounter; Translations: [Contusion of rib on right side] 05-12-2024 Episodic Other lower respiratory disease (3 sources) [...] awareness] 03-22-2024 Episodic Other nervous system disorders (6 sources) Toxic metabolic encephalopathy; Translations: [Toxic metabolic [...] of right knee] Onset: 03-13-2025 Episodic Other nutritional; endocrine; and metabolic disorders [...] Translations: [Obstructive sleep apnea (adult) (pediatric)] Onset: 03-29-2021 03-29-2021 Chronic Comment on above: AHI 40 Residual [...] [Insomnia, unspecified] 12-07-2024 Episodic Residual codes; unclassified (6 sources) Transient alteration of awareness; Translations: [Transient [...] Unclassified (2 sources) Warfarin therapy started; Translations: [translational specialist (current) use of anticoagulants] Onset: 05-01-2017 05-01-2017 Unclassified (2 sources) Chronic pain of left knee 03-13-2025 Unclassified (1 source) 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 behavioral disturbance, psychotic disturbance, mood disturbance, or anxiety (HCC); Translations: [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 behavioral disturbance, psychotic disturbance, mood disturbance, or anxiety (HCC)] Onset: 02-07-2025 Unclassified (1 source) Severe low back pain; Translations: [Severe low back pain] Onset: 12-28-2018 Urinary tract infections (20 sources) History of urinary tract infection; Translations: [Cystitis] Onset: 08-10-2017 08-10-2017 Episodic Viral infection (20 sources) Disease caused by 2019-nCoV; Translations: [COVID-19] Episodic Past or Other Problems Problem Classification Problem Date Documented Date Episodic/Chronic Allergic reactions (20 sources) Eczema; Translations: [Dermatitis, unspecified] Onset: 09-29-2005 Resolved: 09-16-2021 Episodic Calculus of urinary tract (20 sources) Kidney stone; Translations: [Calculus of kidney] Onset: 09-29-2005 09-29-2005 Episodic Genitourinary symptoms and ill-defined conditions (9 [...] Translations: [Cognitive impairment] Onset: 08-03-2024 Episodic Other non-traumatic joint disorders (1 source) [...] source) Other amnesia; Translations: [Memory deficit] Onset: 08-03-2024 Episodic Unclassified (2 sources) Hypersomnia; Translations: [Hypersomnia, unspecified] Onset: 01-05-2017 01-05-2017 Episodic Unclassified (20 sources) Contact dermatitis and other eczema 06-21-2021 Results Test Name Value Interpretation Reference Range Facility OVon 05-11-2025 CNOV Office Visit (GERIWR) KEISHA RED ([id number]) 1945 F Date Time Provider Department 05/11/25 4:00 PM XOCHITL CASTREJON During your visit today, we recorded the following information about you: Pulse Respiration Blood pressure Weight 88/minute 16/minute 99/63 87.5 kg Xochitl Castrejon MD 05/11/2025 5:07 PM Signed We discussed your memory and cognitive health: - You are currently taking Aricept (10 mg) daily for memory support. Please continue taking this medication as prescribed. - Your family has noted some slight improvement in your cognitive abilities, but they have also observed increased irritability (snarkiness). To help with this, I have increased your Zoloft dosage to 100 mg daily. This is the same medication you are already taking, but at a higher dose. The updated prescription has been sent to [facility]. Please take this in the evening as part of your nightly medications. - If you notice any side effects or if your mood does not improve, please let us know. We discussed your daily activities and safety: - You are managing most of your daily activities, including bathing, laundry, and taking your medications, with no significant issues. Your family is helping to remind you about your medications, which is working well. - You are no longer driving, which is important for your safety and the safety of others. Your car is not operational, and your family has the keys to ensure it remains unused. If you have concerns about this, we can discuss further options. - Please avoid moving heavy furniture or doing activities that could increase your risk of falling. Your family is concerned about your safety, especially outdoors where the ground may be uneven. We discussed your social activities and emotional well-being: - Your family has encouraged you to participate in social activities, such as bingo or events at the local community center. If you are interested, transportation options like a bus service are available. Please consider trying these activities to stay engaged and active. - If you feel bored or isolated, let your family know so they can help you find ways to stay active and connected. Follow-up: - Continue taking your medications as prescribed, including the increased dose of Zoloft. - Monitor your mood and cognitive abilities. If you or your family notice any changes or concerns, please contact our office. - If you experience any new symptoms or side effects, please let us know. Please reach out if you have any questions or need further assistance. Xochitl Castrejon MD 05/11/2025 5:14 PM Signed Reason for Visit Follow up HPI Keisha Red is a 80-year-old female with a history of cognitive impairment, accompanied by her daughter, presenting for follow-up. Keisha was started on donepezil 10 mg for memory issues during the last visit and has been taking it daily with the assistance of her daughter, who manages her medications using a pill organizer. Keisha reports feeling pretty good and the same as I always did since starting the medication. Her daughter notes a slight improvement in cognitive abilities but mentions that Keisha has become snarkier recently. Keisha acknowledges this change in behavior and expresses a desire to manage it. Keisha also takes sertraline, though the dosage is not specified. She lives independently and manages most of her activities of daily living, including bathing, laundry, and simple cooking, without issues. She enjoys doing laundry and watching TV but reports feeling bored and isolated at times. She has a limited social [place] and relies on her daughters for support, as her brother is less involved in her care. Keisha has a history of falls and is no longer driving, although she expresses a desire to do so. Her family does not feel comfortable with her driving due to safety concerns. She has been using a smartphone for 2-3 weeks but struggles with its functionality, leading her family to consider getting a landline for her. She also reports difficulty hearing her daughter on the phone when she uses a speaker system in her car, but denies any other hearing issues. Social History Tobacco Use Smoking status: Never Smokeless tobacco: Never Vaping Use Vaping status: Never Used Substance Use Topics Alcohol use: No Drug use: Never Past medical history, appointments, medications, allergies reviewed. Pertinent Lab/Diagnostic Studies are reviewed and discussed today Current Outpatient Medications: glimepiride (AMARYL) 2 mg tablet atorvastatin (LIPITOR) 10 mg tablet nitrofurantoin monohydrate and macrocrystal (MACROBID) 100 mg capsule triamcinolone acetonide (KENALOG) 0.1 % cream donepezil (ARICEPT) 10 mg tablet diclofenac (VOLTAREN ARTHRITIS PAIN) 1 % topical gel Magnesium Oxide 250 mg magnesium tab Cholecalciferol, Karen (more content not included)... Normal [facility] normalized rat io (INR) calculationOrdered By: Lisandra Cao on 05-11-2025 INR Coag (Bld) [Relative time] 1.2 {INR} [facility] Prothrombin Time w/INRon INR Coag (PPP) [Relative time] 1.2 {INR} Normal [facility] Comment on above: Performed By: #### L 300.3900 ####[facility] [id number] [place], [place], [phone]) PT Coag (PPP) [Time] 15.8 s High 11.7-14.9 [facility] Comment on above: Performed By: #### L [id number] ####[facility] [id number] [place], [place], [phone] Prothrombin timeOrdered By: Lisandra Cao on 05-11-2025 PT Coag (PPP) [Time] 15.8 s High 11.7-14.9 [facility] normalized rat io (INR) calculationOrdered By: Lisandra Cao on 03-23-2025 INR Coag (Bld) [Relative time] 1.2 {INR} [facility] Prothrombin Time w/INRon INR Coag (PPP) [Relative time] 1.2 {INR} Normal [facility] Comment on above: Performed By: #### L [id number] ####[facility] [id number] [place], [place], [phone] PT Coag (PPP) [Time] 15.4 s High 11.7-14.9 [facility] Comment on above: Performed By: #### L [id number] ####[facility] [id number] [place], [address] Prothrombin timeOrdered By: Lisandra Cao on 03-23-2025 PT Coag (PPP) [Time] 15.4 s High 11.7-14.9 [facility] CNPNon 03-16-2025 CNPN Telephone (INTMWS) KEISHA RED ([id number]) 1945 F Date Time Provider Department 03/16/25 WHITNEY HAMMOND INTMWS During your visit today, we recorded the following information about you: Tamy Donis LPN 03/16/2025 11:14 AM Signed Patient calling asking for her knee xray results. Aware STRAW HAT BRUSHER is out of the office on . Please advise 03/15/2025 8:33 PM - Radiology, Oru In Impression IMPRESSION: Medial compartment predominant osteoarthritis. Save All Operator: JULIOCESAR Transcribe Date/Time: Mar 15 2025 8:30P [...] Chondrocalcinosis. No significant joint effusion. Whitney Hammond APRN.[facility] 03/17/2025 7:23 AM Signed Her xray shows [...] knee injection, when appropriate. VLAD John Rosa, 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.MANAGER FRONT 03/22/2025 2:53 PM Signed Due to her diabetes I would recommend waiting a few weeks after the first steroid injection before getting the second. Carolina Kuo LPN 03/22/2025 3:14 PM Signed Attempted to reach Dian with no answer and call dropped after 3 rings. Yuko Rogers RN 03/24/2025 3:35 PM Signed Patient's daughter calls and states that patient just had back injection today by Dr. Calero. Daughter states that Dr. Calero had told patient to wait 2 weeks until getting a knee injection. Yuko Rogers RN Allergies As of Date: 03/16/2025 Noted Allergy Reaction TIZANIDINE 10/07/2023 1 - Mental Status Change 14 - Other: See Comments Comments: Made her feel like in another world. Very dry mouth. Stumbling/falling AMOXICILLIN 07/14/2005 4 - Hives ASPIRIN 01/30/2009 Comments: Hives, shortness of breath SULFA (SULFONAMIDE ANTIBIOTICS) 07/14/2005 4 - Hives Date Reviewed: 03/13/2025 Reviewed by: Whitney Hammond APRN.MANAGER FRONT - Fully Assessed Reason for Visit: knee [...] inhaler Inhale (more content not included)... Normal [facility] CNOVon 03-13-2025 CNOV Office Visit (INTMWS) KEISHA RED ([id number]) 1945 F Date Time Provider Department 03/13/25 7:20 AM WHITNEY HAMMOND During your visit today, we recorded the following information about you: Pulse Blood pressure Weight 80/minute 120/72 85.3 kg Whitney Hammond APRN.MANAGER FRONT 03/13/2025 8:45 AM Signed SUBJECTIVE Keisha Red [...] She recently had a brain scan in [place]. Her most recent A1c in November was [...] hours as needed for wheezing/shortness of breath. 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) oxybutynin ER (DITROPAN XL) 10 mg [...] * Hives ACTIVE PROBLEM LIST Alzheimer Dementia ([facility]) - 02/07/2025 Obesity, Class I, Bmi 30-34.9 - 09/23/2023 Hemorrhagic Disorder Due to Extrinsic Circulating Anticoagulants ([facility]) - 09/23/2023 Ulcer of Right Lower Extremity With Fat Layer Exposed ([facility]) - 07/26/2023 Pulmonary Hypertension ([facility]) - 05/03/2023 Ramesh (Obstructive Sleep Apnea) - 01/21/2021 Pacemaker - 01/21/2021 Bilateral Carpal Isaías (more content not included)... Normal [facility] XR KNEE 4V AP/PA BOTH+LAT/ME R [...] joint effusion. IMPRESSION: Medial compartment predominant osteoarthritis. Save All Operator: JULIOCESAR Transcribe Date/Time: Mar 15 2025 8:30P Dictated by : CONNIE YO MD This examination was interpreted and the report reviewed and electronically signed by: CONNIE YO MD on Mar 15 2025 8:31PM EST [id number] CN Normal [facility] CNPCassy 02-22-2025 CNPN Telephone (INTWS) ZAYKEISHA L ([id number]) 1945 F Date Time Provider Department 02/22/25 [...] to previously scheduled appt. VLAD Reyna Rosa, APRN.MANAGER FRONT 02/22/2025 12:57 PM Signed It would be [...] hours as needed for wheezing/shortness of breath. 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 [facility] KE[facility] ([id number]) 1945 F Date Time Provider Department 02/22/25 JOON LOPEZ INTMWS During your visit today, we recorded the following information about you: Hilaria Avina RN 02/22/2025 11:22 AM Signed Pt reports she would like to get a medical alert necklace- where she can push a button for help. A company she spoke to told her it would cost $44.97 a month. Pt asking if pcp can prescribe this and if there are places where she can get one for free? Reports someone she knows got one from [facility] for free. Please phone pt with reply. Whitney Hammond APRN.DOMINGO 02/22/2025 12:56 PM Signed This is what I was able to find for [facility], please let her know: Medical Alert equipment has been purchased by the [facility] as a community service and is available to you for a rental fee of $20 per month for a landline and $25 per month for a wireless line. There is no equipment for you to buy, no installation charge, and no maintenance charge for you to pay. For more information about the [facility] Medical Alert, contact [facility] at [phone]. Carolina Kuo LPN 02/22/2025 3:23 PM Signed [...] hours as needed for wheezing/shortness of breath. 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 However, she has experienced multiple falls recently. [...] observed. Patient remains independent in ADLs, including rn new grad. Recent fall reported, resulting in minor injuries to the foot and arm. - Increased Aricept to 10 mg daily, to be taken after breakfast. - Reinforced importance of consistent medication adherence; family members to assist with medication administration. - Monitor for any adverse effects, including gastrointestinal symptoms and bradycardia. - Follow-up in 4 we (more content not included)... Normal [facility] Bacteria Ur Culton 5 Bacteria identified Cx Nom (U) ORGANISM ID: 1 >=100,000 CFU/ml Normal urogenital sera Normal [facility] Comment on above: Performed By: #### 6 30-4 ####[facility] FARIDA [id number] [address] [place] CNOVon 02-07-2025 CNOV Office Visit (UCWSTR) KEISHA RED ([id number]) 1945 F Date Time Provider Department 02/07/25 2:00 PM CLARISSE JOYCE [facility] During your visit today, we recorded the following information about you: Temperature Pulse Respiration Blood pressure 97.4 degrees 92/minute 20/minute 130/69 Weight 86 kg Clarisse Joyce APRN.MANAGER FRONT 02/07/2025 5:46 PM Signed [facility] [...] history is provided by the patient. No office chair assembler was used. UTI This is a new [...] Right shoulder s/p fall with reduction at [facility] Type II or unspecified type diabetes [...] hours as needed for wheezing/shortness of breath. 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 Normal [facility] UA DIP, URINE (POC)on 2024 BILIRUBIN UA (POCT) Negative Negative [facility] CLARITY UA (POCT) Cloudy [facility] COLOR UA (POCT) Dark yellow [facility] GLUCOSE UA (POCT) Negative Negative mg/dL [facility] Hemoglobin Ql (U) Small Abnormal Negative [facility] Interpretation and review of laboratory results Abnormal [facility] KETONE UA (POCT) Negative Negative mg/dL [facility] LEUKOCYTES UA (POCT) Small Abnormal Negative [facility] NITRITE UA (POCT) Negative Negative [facility] PH UA (POCT) 6 4.5 - 8.0 [facility] Protein Ql (U) 30 mg/dL Abnormal Negative [facility] SPECIFIC GRAVITY UA (POCT) 1.02 1.005 - 1.030 [facility] UROBILINOGEN UA (POCT) 0.2 Carlita l E.U./dL [facility] Location:[facility], [address] [place] [address], [place], [address] [facility] POINT OF CARE [facility] International normalized rat io (INR) calculationOrdered By: Lisandra Cao on 01-12-2025 INR Coag (Bld) [Relative time] 2.0 {INR} [facility] Prothrombin Time w/INRon INR Coag (PPP) [Relative time] 2.0 {INR} Normal [facility] Comment on above: Performed By: #### L 300.3900 ####[facility] [id number] [place], [place], [id number] PT Coag (PPP) [Time] 23.5 s High 11.7-14.9 [facility] Comment on above: Performed By: #### L 300.3900 ####[facility] [id number] [place], [place], [id number] Prothrombin timeOrdered By: Lisandra Cao on 01-12-2025 PT Coag (PPP) [Time] 23.5 s High 11.7-14.9 [facility] Bacteria Ur Culton Bacteria identified Cx [...] , Intermediate >32 , Resistant >64 Abnormal [facility] Comment on above: Performed By: #### 6 30-4 ####[facility] LABCLIA [id number] [address] OF [facility] CNOVon 01-05-2025 CNOV Office Visit (UCWSTR) ZAYKEISHA Marie ([id number]) 1945 F Date Time Provider Department 01/05/25 10:15 AM ANTONINO CRANDALL [facility] During your visit today, we recorded the following information about you: Temperature Pulse Respiration Blood pressure 97.4 degrees 83/minute 20/minute 135/86 Weight 86 kg Antonino Crandall PA 01/05/2025 10:39 AM Signed [facility] Subjective Keisha Red [...] Right shoulder s/p fall with reduction at [facility] Type II or unspecified type diabetes [...] hours as needed for wheezing/shortness of breath. 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 Normal [facility] UA DIP, URINE (POC)on 2024 BILIRUBIN UA (POCT) Negative Negative [facility] CLARITY UA (POCT) Cloudy [facility] COLOR UA (POCT) Hallie [facility] GLUCOSE UA (POCT) Negative Negative mg/dL [facility] Hemoglobin Ql (U) Trace-intact Abnormal Negative [facility] Interpretation and review of laboratory results Abnormal [facility] KETONE UA (POCT) Negative Negative mg/dL [facility] LEUKOCYTES UA (POCT) Moderate Abnormal [facility] (PO[facility]) Positive Abnormal Negative [facility] PH UA (POCT) 5.5 4.5 - 8.0 [facility] Protein Ql (U) 30 mg/dL Abnormal Negative [facility] SPECIFIC GRAVITY UA (POCT) 1.02 1.005 - 1.030 [facility] UROBILINOGEN UA (POCT) 0.2 Carlita l E.U./dL [facility] Location:[address], [place], [place], [address] [place] [address] POINT OF CARE [facility] Emergency Department Summary on 01-04-2025 Emergency Department Summary Normal [facility] Humerus min 2 Viewson 2024 Humerus min 2 Views Normal [facility] Shoulder min 2 Viewson 01-04 Shoulder min 2 Views Normal [facility] Pulmonary Visit Reporton Pulmonary Visit Report Normal [facility] 25(OH)D3 SerPl-mCncon 2024 25-hydroxyvitamin D3 [Mass/Vol] 38.0 ng/mL Normal 31.0-80.0 [facility] Comment on above: Order Comment: Speci men Type: BLOOD SPECIMENOrdering Facility: [facility] Address: [address] [place] [address] Result Comment: Clas sification of 25 [place] Vitamin D status: Deficiency/Insufficiency: < or = 30 ng/ml. Sufficiency/Optimal Levels: 31-80 ng/mL Toxicity: > 100 ng/mL. Test performed by chemiluminescent immunoassay. Performed By: #### 1 989-3 ####[facility] LABCLIA [id number] [place] [address] [place] CBC W Auto Differential pane l (Bld)on 12-07-2024 Basophils (Bld) [#/Vol] 0.06 10*3/uL Normal <0.11 [facility] Comment on above: Order Comment: Speci men Type: BLOOD SPECIMENOrdering Facility: [facility] Address: [address] [place] [address] Performed By: #### 5 7021-8 ####[facility] LABCLIA [id number] [place] [address] [place] Basophils/100 WBC (Bld) 1.0 % Normal [facility] Comment on above: Order Comment: Speci men Type: BLOOD SPECIMENOrdering Facility: [facility] Address: [address] [place] [address] Performed By: #### 5 7021-8 ####[facility] LABCLIA [id number] [place] [address] [place] Differential cell count method Nom (Bld) Auto Normal [facility] Comment on above: Order Comment: Speci men Type: BLOOD SPECIMENOrdering Facility: [facility] Address: [address] [place] [address] Performed By: #### 5 7021-8 ####[facility] LABCLIA [id number] [place] [address] [place] Eosinophils (Bld) [#/Vol] 0.35 10*3/uL Normal <0.46 [facility] Comment on above: Order Comment: Speci men Type: BLOOD SPECIMENOrdering Facility: [facility] Address: [address] [place] [address] Performed By: #### 5 7021-8 ####[facility] LABCLIA [id number] [place] [address] [place] Eosinophils/100 WBC (Bld) 5.6 % Normal [facility] Comment on above: Order Comment: Speci men Type: BLOOD SPECIMENOrdering Facility: [facility] Address: [address] [place] [address] Performed By: #### 5 7021-8 ####[facility] LABCLIA [id number] [place] [address] [place] Erythrocyte distribution width (RBC) [Ratio] 12.3 % Normal 11.5-15.0 [facility] Comment on above: Order Comment: Speci men Type: BLOOD SPECIMENOrdering Facility: [facility] Address: [address] [place] [address] Performed By: #### 5 7021-8 ####[facility] LABCLIA [id number] [place] [address] [place] Hematocrit (Bld) [Volume fraction] 43.2 % Normal 36.0-46.0 [facility] Comment on above: Order Comment: Speci men Type: BLOOD SPECIMENOrdering Facility: [facility] Address: [address] [place] [address] Performed By: #### 5 7021-8 ####[facility] LABIA [id number] [place] [address] [place] Hemoglobin (Bld) [Mass/Vol] 13.7 g/dL Normal 11.5-15.5 [facility] Comment on above: Order Comment: Speci men Type: BLOOD SPECIMENOrdering Facility: [facility] Address: [address] [place] [address] Performed By: #### 5 7021-8 ####[facility] LABIA [id number] [place] [address] [place] Immature granulocytes (Bld) [#/Vol] 10*3/uL Normal <0.10 [facility] Comment on above: Order Comment: Speci men Type: BLOOD SPECIMENOrdering Facility: [facility] Address: [address] [place] [address] Performed By: #### 5 7021-8 ####[facility] LABCLIA [id number] [place] [address] [place] Immature granulocytes/100 WBC (Bld) 0.3 % Normal [facility] Comment on above: Order Comment: Speci men Type: BLOOD SPECIMENOrdering Facility: [facility] Address: [address] [place] [address] Performed By: #### 5 7021-8 ####[facility] LABCLIA [id number] [place] [address] [place] Lymphocytes (Bld) [#/Vol] 1.50 10*3/uL Normal 1.00-4.00 [facility] Comment on above: Order Comment: Speci men Type: BLOOD SPECIMENOrdering Facility: [facility] Address: [address] [place] [address] Performed By: #### 5 7021-8 ####[facility] LABCLIA [id number] [place] [address] [place] Lymphocytes/100 WBC (Bld) 23.9 % Normal [facility] Comment on above: Order Comment: Speci men Type: BLOOD SPECIMENOrdering Facility: [facility] Address: [address] [place] [address] Performed By: #### 5 7021-8 ####[facility] LABCLIA [id number] [place] [address] [place] MCH (RBC) [Entitic mass] 31.6 pg Normal 26.0-34.0 [facility] Comment on above: Order Comment: Speci men Type: BLOOD SPECIMENOrdering Facility: [facility] Address: [address] [place] [address] Performed By: #### 5 7021-8 ####[facility] LABCLIA [id number] [place] [address] [place] MCHC (RBC) [Mass/Vol] 31.7 g/dL Normal 30.5-36.0 [facility] Comment on above: Order Comment: Speci men Type: BLOOD SPECIMENOrdering Facility: [facility] Address: [address] [place] [address] Performed By: #### 5 7021-8 ####[facility] LABCLIA [id number] [place] [address] [place] MCV (RBC) [Entitic vol] 99.8 fL Normal 80.0-100.0 C [facility] Comment on above: Order Comment: Speci men Type: BLOOD SPECIMENOrdering Facility: [facility] Address: [address] [place] [address] Performed By: #### 5 7021-8 ####[facility] LABIA [id number] [place] [address] [place] Monocytes (Bld) [#/Vol] 0.43 10*3/uL Normal <0.87 [facility] Comment on above: Order Comment: Speci men Type: BLOOD SPECIMENOrdering Facility: [facility] Address: [address] [place] [address] Performed By: #### 5 7021-8 ####[facility] LABIA [id number] [place] [address] [place] Monocytes/100 WBC (Bld) 6.8 % Normal C [facility] Comment on above: Order Comment: Speci men Type: BLOOD SPECIMENOrdering Facility: [facility] Address: [address] [place] [address] Performed By: #### 5 7021-8 ####[facility] LABIA [id number] [place] [address] [place] Neutrophils (Bld) [#/Vol] 3.92 10*3/uL Normal 1.45-7.50 [facility] Comment on above: Order Comment: Speci men Type: BLOOD SPECIMENOrdering Facility: [facility] Address: [address] [place] [address] Performed By: #### 5 7021-8 ####[facility] LABIA [id number] [place] [address] [place] Neutrophils/100 WBC (Bld) 62.4 % Normal [facility] Comment on above: Order Comment: Speci men Type: BLOOD SPECIMENOrdering Facility: [facility] Address: [address] [place] [address] Performed By: #### 5 7021-8 ####[facility] LABCLIA [id number] [place] [address] [place] Nucleated RBC (Bld) [#/Vol] 10*3/uL Normal <0.01 [facility] Comment on above: Order Comment: Speci men Type: BLOOD SPECIMENOrdering Facility: [facility] Address: [address] [place] [address] Performed By: #### 5 7021-8 ####[facility] LABCLIA [id number] [place] [address] [place] Nucleated RBC/100 WBC (Bld) [Ratio] 0.0 /100 WBC Normal [facility] Comment on above: Order Comment: Speci men Type: BLOOD SPECIMENOrdering Facility: [facility] Address: [address] [place] [address] Performed By: #### 5 7021-8 ####[facility] LABCLIA [id number] [place] [address] [place] Platelet mean volume (Bld) [Entitic vol] 10.5 fL Normal 9.0-12.7 [facility] Comment on above: Order Comment: Speci men Type: BLOOD SPECIMENOrdering Facility: [facility] Address: [address] [place] [address] Performed By: #### 5 7021-8 ####[facility] LABIA [id number] [place] [address] [place] Platelets (Bld) [#/Vol] 143 10*3/uL Low 150-400 [facility] Comment on above: Order Comment: Speci men Type: BLOOD SPECIMENOrdering Facility: [facility] Address: [address] [place] [address] Performed By: #### 5 7021-8 ####[facility] LABCLIA [id number] [place] [id number] [place] RBC (Bld) [#/Vol] 4.33 10*6/uL Normal 3.90-5.20 [facility] Comment on above: Order Comment: Speci men Type: BLOOD SPECIMENOrdering Facility: [facility] Address: [address] [place] [address] Performed By: #### 5 7021-8 ####[facility] LABCLIA [id number] [place] [address] [place] WBC (Bld) [#/Vol] 6.28 10*3/uL Normal 3.70-11.00 [facility] Comment on above: Order Comment: Speci men Type: BLOOD SPECIMENOrdering Facility: [facility] Address: [address] [place] [address] Performed By: #### 5 7021-8 ####[facility] LABCLIA [id number] [address] [place] CNOVon 12-07-2024 CNOV Office Visit (INTMWS) KEISHA RED ([id number]) 1945 F Date Time Provider Department 12/07/24 [...] recently tried going to bed later, around 7690-5840, and notes some improvement in sleep quality. [...] Right shoulder s/p fall with reduction at [facility] Type II or unspecified type diabetes [...] hours as needed for wheezing/shortness of breath. 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 Normal [facility] Comprehensive metabolic 2000 panelon 12-07-2024 Albumin [Mass/Vol] 4.0 g/dL Normal 3.9-4.9 [facility] Comment on above: Order Comment: Speci men Type: BLOOD SPECIMENOrdering Facility: [facility] Address: [address] [place] [address] Performed By: #### 2 4323-8 ####[facility] LABCLIA [id number] [place] [address] [place] ALP [Catalytic activity/Vol] 98 U/L Normal 34-123 [facility] Comment on above: Order Comment: Speci men Type: BLOOD SPECIMENOrdering Facility: [facility] Address: [address] [place] [address] Performed By: #### 2 4323-8 ####[facility] LABCLIA [id number] [place] [address] [place] ALT [Catalytic activity/Vol] 12 U/L Normal 7-38 [facility] Comment on above: Order Comment: Speci men Type: BLOOD SPECIMENOrdering Facility: [facility] Address: [address] [place] [address] Performed By: #### 2 4323-8 ####[facility] LABCLIA [id number] [place] [address] [place] Anion gap [Moles/Vol] 9 mmol/L Normal 8-15 [facility] Comment on above: Order Comment: Speci men Type: BLOOD SPECIMENOrdering Facility: [facility] Address: [address] [place] [address] Performed By: #### 2 4323-8 ####[facility] LABCLIA [id number] [place] [address] [place] AST [Catalytic activity/Vol] 19 U/L Normal 13-35 [facility] Comment on above: Order Comment: Speci men Type: BLOOD SPECIMENOrdering Facility: [facility] Address: [address] [place] [address] Performed By: #### 2 4323-8 ####[facility] LABCLIA [id number] [place] [id number] [place] Bilirubin [Mass/Vol] 0.6 mg/dL Normal 0.2-1.3 [facility] Comment on above: Order Comment: Speci men Type: BLOOD SPECIMENOrdering Facility: [facility] Address: [address] [place] [address] Performed By: #### 2 4323-8 ####[facility] LABCLIA [id number] [place] [address] [place] Calcium [Mass/Vol] 9.8 mg/dL Normal 8.5-10.2 [facility] Comment on above: Order Comment: Speci men Type: BLOOD SPECIMENOrdering Facility: [facility] Address: [address] [place] [address] Performed By: #### 2 4323-8 ####[facility] LABCLIA [id number] [place] [address] [place] Chloride [Moles/Vol] 104 mmol/L Normal 98-107 [facility] Comment on above: Order Comment: Speci men Type: BLOOD SPECIMENOrdering Facility: [facility] Address: [address] [place] [address] Performed By: #### 2 4323-8 ####[facility] LABCLIA [id number] [place] [address] [place] CO2 [Moles/Vol] 27 mmol/L Normal 22-30 [facility] Comment on above: Order Comment: Speci men Type: BLOOD SPECIMENOrdering Facility: [facility] Address: [address] [place] [address] Performed By: #### 2 4323-8 ####[facility] LABCLIA [id number] [place] [id number] [place] Creatinine [Mass/Vol] 0.83 mg/dL Normal 0.58-0.96 [facility] Comment on above: Order Comment: Josette faust Type: BLOOD SPECIMENOrdering Facility: [facility] Address: [address] [place] [address] Performed By: #### 2 4323-8 ####[facility] LABIA [id number] [place] [address] [place] Creatinine and Glomerular filtration rate.predicted panel (S/P/Bld) 73 mL/min/1.73m??? Normal >=60 [facility] [facility] Comment on above: Order Comment: Josette faust Type: BLOOD SPECIMENOrdering Facility: [facility] Address: [address] [place] [address] Result Comment: Monique mated Glomerular Filtration Rate [...] actual GFR. Performed By: #### 2 4323-8 ####[facility] LABIA [id number] [place] [address] [place] Glucose [Mass/Vol] 105 mg/dL High 74-99 [facility] Comment on above: Order Comment: Josette faust Type: BLOOD SPECIMENOrdering Facility: [facility] Address: [address] [place] [address] Result Comment: The [place] Diabetes Association (ADA) provides guidance for cutoff [...] Standards of Medical Care in Diabetes 2016, [place] Diabetes Association. Diabetes Care. 2016.39(Suppl 1). Performed By: #### 2 4323-8 ####[facility] LABCLIA [id number] [place] [address] [place] Potassium [Moles/Vol] 5.2 mmol/L High 3.7-5.1 [facility] Comment on above: Order Comment: Speci men Type: BLOOD SPECIMENOrdering Facility: [facility] Address: [address] [place] [address] Performed By: #### 2 4323-8 ####[facility] LABCLIA [id number] [place] [address] [place] Protein [Mass/Vol] 7.3 g/dL Normal 6.3-8.0 [facility] Comment on above: Order Comment: Speci men Type: BLOOD SPECIMENOrdering Facility: [facility] Address: [address] [place] [address] Performed By: #### 2 4323-8 ####[facility] LABCLIA [id number] [place] [address] [place] Sodium [Moles/Vol] 140 mmol/L Normal 136-144 [facility] Comment on above: Order Comment: Speci men Type: BLOOD SPECIMENOrdering Facility: [facility] Address: [address] [place] [address] Performed By: #### 2 4323-8 ####[facility] LABCLIA [id number] [place] [address] [place] Urea nitrogen [Mass/Vol] 16 mg/dL Normal 7-21 [facility] Comment on above: Order Comment: Speci men Type: BLOOD SPECIMENOrdering Facility: [facility] Address: [address] [place] [address] Performed By: #### 2 4323-8 ####[facility] [id number] [address] HbA1c (Bld)on 12-07-2024 Average glucose Estimated from glycated hemoglobin (Bld) [Mass/Vol] 123 mg/dL Normal [facility] Comment on above: Order Comment: Josette faust Type: BLOOD SPECIMENOrdering Facility: [facility] Address: [address] [place] [address] Result Comment: eAG: (Estimated average glucose) is a calculated value from HgbA1c and is employment representative of the average blood glucose level in the last 2-3 month period. Performed By: #### 5 5454-3 ####[facility] [id number] [address] HbA1c (Bld) [Mass fraction] 5.9 % High 4.3-5.6 [facility] Comment on above: Order Comment: Josette faust Type: BLOOD SPECIMENOrdering Facility: [facility] Address: [address] [place] [address] Result Comment: Amer [place] Diabetes Association guidelines indicate that patients with HgbA1c in the range 5.7-6.4% are at increased risk for development of diabetes, and intervention by lifestyle modification may be beneficial. HgbA1c greater or equal to 6.5% is considered diagnostic of diabetes. 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 where the turkey was spoiled and she [...] Date , Taking? Yes, Authorizing Provider Provider, [facility] Medication albuterol HFA (PROAIR HFA) 90 mcg/actuation inhaler, Sig Inhale 2 Puffs as instructed every 4 hours as needed for wheezing/shortness of breath. (pulmonologis (more content not included)... Normal [facility] International normalized rat io (INR) calculationOrdered By: Lisandra Cao on 11-01-2024 INR Coag (Bld) [Relative time] 1.5 {INR} [facility] Prothrombin Time w/INRon INR Coag (PPP) [Relative time] 1.5 {INR} Normal [facility] Comment on above: Performed By: #### L 300.3900 ####[facility] [address] [facility] [facility] [facility] [place], [place], [id number] PT Coag (PPP) [Time] 18.8 s High 11.7-14.9 [facility] Comment on above: Performed By: #### L 300.3900 ####[facility] [address] [facility]. [place], [place], [id number] Prothrombin timeOrdered By: Lisandra Cao on 11-01-2024 PT Coag (PPP) [Time] 18.8 s High 11.7-14.9 [facility] Telephone (INTMWS) KEISHA RED ([id number]) 1945 F Date Time Provider Department 09/30/24 XOCHITL CASTREJON During your visit today, we recorded the following information about you: Patricia De La Paz LPN 09/30/2024 9:21 AM Signed ----- Message from Xochitl Castrejon MD sent at 09/29/2024 5:22 PM EST ----- Likely has Alzheimer's dementia, would benefit from being on Aricept medication. Will discuss this and your coming visit in October. Regards, Xochitl Castrejon MD Patricia De La Paz BOONE 09/30/2024 9:42 AM Signed Called and spoke to Keisha's daughter Dian, updated, will discuss medication. Patricia De La Paz OPTOMETRIC COORDINATOR September 30, 2024 9:42 AM Allergies As of Date: 09/30/2024 Noted Allergy Reaction TIZANIDINE 10/07/2023 1 - Mental Status Change 14 - Other: See Comments Comments: Made her feel like in another world. Very dry mouth. Stumbling/falling AMOXICILLIN 07/14/2005 4 - Hives ASPIRIN 01/30/2009 Comments: Hives, shortness of breath SULFA (SULFONAMIDE ANTIBIOTICS) 07/14/2005 4 - Hives Date Reviewed: 09/09/2024 Reviewed by: Whitney Hammond APRN.MANAGER FRONT - Fully Assessed Prescriptions as of 09/30/2024 [...] hours as needed for wheezing/shortness of breath. 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 Save All Operator: JULIOCESAR Transcribe Date/Time: Sep 29 2024 7:39A Dictated by : JOYCE FREDERICK MD This examination was interpreted and the report reviewed and electronically signed by: JOYCE FREDERICK MD on Sep 29 2024 7:59AM EST [id number] Normal [facility] MRI BRAIN WO IVCONon 024 MRI BRAIN WO IVCON * * *Final Report* * * DATE OF EXAM: Sep 28 2024 10:56AM [facility] 0294 - MRI BRAIN WO IVCON / [...] dementia protocol and 3-D post-processing using the [employer] software at an independent workstation with concurrent [...] = Focal Lesions 2 = Beginning of Pattison 3 = Diffuse Involvement of Entire Region [...] impairment, and elderly controls. Neuroimage 43;59 (2008). Wahlund et al. A New Rating Scale for Age-Related White Matter Changes Applicable to MRI and CT. Stroke. 32:1318 (2001). * Asymmetry index defined as difference between left and right volumes divided by mean or [(L-R/Mean) x 100] (%). Age-matched reference charts measure total hippocampal volume (% of intracranial volume). See results from the analysis charts for details. Save All Operator: JULIOCESAR Transcribe Date/Time: Sep 29 2024 7:39A Dictated by : JOYCE FREDERICK MD This examination was interpreted and the report reviewed and electronically signed by: JOYCE FREDERICK MD on Sep 29 2024 7:59AM EST [id number] CN Normal [facility] International normalized rat io (INR) calculationOrdered By: Lisandra Cao on 09-19-2024 INR Coag (Bld) [Relative time] 2.1 {INR} [facility] Prothrombin Time w/INRon INR Coag (PPP) [Relative time] 2.1 {INR} Normal [facility] Comment on above: Performed By: #### L 300.3900 ####[facility] [address] [place], [place], [id number] PT Coag (PPP) [Time] 23.2 s High 11.7-14.9 [facility] Comment on above: Performed By: #### L 300.3900 ####[facility] [address] [place], [place], [id number] Prothrombin timeOrdered By: Lisandra Cao on 09-19-2024 PT Coag (PPP) [Time] 23.2 s High 11.7-14.9 [facility] KE[facility] RED ([id number]) 1945 F Date Time Provider Department 09/13/24 [...] Date Reviewed: 09/09/2024 Reviewed by: Whitney Hammond APRN.MANAGER FRONT - Fully Assessed Reason for Visit: Appointment [...] hours as needed for wheezing/shortness of breath. 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 Normal [facility] Bacteria Ur Culton 4 Bacteria identified [...] , Intermediate >32 , Resistant >64 Abnormal [facility] Comment on above: Performed By: #### 6 30-4 ####[facility] LABCLIA [id number] [address] [facility] CNOVon 09-08-2024 CNOV Office Visit (UCWSTR) KEISHA RED ([id number]) 1945 F Date Time Provider Department 09/08/24 2:00 PM MARGARET WILDE [facility] During your visit today, we recorded the following information about you: Temperature Pulse Respiration Blood pressure 98.3 degrees 71/minute 18/minute 116/70 Weight 82.8 kg Margaret Wilde APRN.MANAGER FRONT 09/08/2024 2:28 PM Signed CC: Patient presents [...] Right shoulder s/p fall with reduction at [facility] Type II or unspecified type diabetes [...] hours as needed for wheezing/shortness of breath. 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 Normal [facility] Prothrombin Time w/INRon INR Coag (PPP) [Relative time] 2.2 {INR} Normal [facility] Comment on above: Performed By: #### L 300.3900 ####[facility] [address] [place], [address] PT Coag (PPP) [Time] 24.3 s High 11.7-14.9 [facility] Comment on above: Performed By: #### L 300.3900 ####[facility] [address] [place], [place], [id number] UA DIP, URINE (POC)on 2023 BILIRUBIN UA (POCT) Negative Negative [facility] CLARITY UA (POCT) Cloudy [facility] COLOR UA (POCT) Yellow [facility] GLUCOSE UA (POCT) Negative Negative mg/dL [facility] Hemoglobin Ql (U) Moderate Abnormal Negative [facility] Interpretation and review of laboratory results Abnormal [facility] KETONE UA (POCT) Negative Negative mg/dL [facility] LEUKOCYTES UA (POCT) Large Abnormal Negative [facility] NITRITE UA (POCT) Positive Abnormal Negative [facility] PH UA (POCT) 6.0 4.5 - 8.0 [facility] Protein Ql (U) 100 mg/dL Abnormal Negative [facility] SPECIFIC GRAVITY UA (POCT) 1.020 1.005 - 1.030 [facility] UROBILINOGEN UA (POCT) 0.2 Carlita l E.U./dL [facility] Location:[facility], [address] [facility], [place], [address] [facility] POINT OF CARE [facility] Prothrombin Time w/INRon INR Coag (PPP) [Relative time] 1.9 {INR} Normal [facility] Comment on above: Performed By: #### L 300.3900 ####[facility] [address] [place], [address] PT Coag (PPP) [Time] 21.9 s High 11.7-14.9 [facility] Comment on above: Performed By: #### L 300.3900 ####[facility] [address] [place], [address] Prothrombin Time w/INRon INR Coag (PPP) [Relative time] 4.6 {INR} Invalid Interpretation Code [facility] Comment on above: Result Comment: CRIT ICAL VALUE CALLED TO JC CHU ([facility])08/26/24 1049 Magan Xiong.RESULTS READ BACK BY SAME. Performed By: #### L 300.3900 ####[facility] [address] [place], [address] PT Coag (PPP) [Time] 42.9 s High 11.7-14.9 [facility] Comment on above: Performed By: #### L 300.3900 ####[facility] [address] [place], [address] Prothrombin Time w/INRon INR Coag (PPP) [Relative time] 3.3 {INR} Normal [facility] Comment on above: Order Comment: Comme nts: STANDING ORDER Performed By: #### L 300.3900 ####[facility] [address] [place], [place], [address] PT Coag (PPP) [Time] 33.2 s High 11.7-14.9 [facility] Comment on above: Order Comment: Comme nts: STANDING ORDER Performed By: #### L 566.7668 ####[facility] [address] [place], [address] Elbow min 3 Viewson 08-20-20 Elbow min 3 Views Normal [facility] Emergency Department Summary on 08-20-2024 Emergency Department Summary Normal [facility] Shoulder min 2 Viewson 08-20 Shoulder min 2 Views Normal [facility] Wrist min 3 Viewson 08-20-20 Wrist min 3 Views Normal [facility] Wrist min 3 Views Normal [facility] CNOVon 08-17-2024 CNOV Office Visit (UCWSTR) ZAYKEISHA Marie ([id number]) 1945 F Date Time Provider Department 08/17/24 11:30 AM SANDRA PAYTON [facility] During your visit today, we recorded the following information about you: Pulse Respiration Blood pressure Weight 75/minute 20/minute 100/60 81.1 kg Sandra Payton PA-C 08/17/2024 12:25 PM Signed This note was created using [employer] Subjective Keisha Red is a 79 year [...] Diagnosis:Acute UTI [N39.0] Order(s):UA DIP, URINE (POC) [[id number]] Order #: [id number] #:[id number] Prescriptions as of 08/17/2024 - oxyCODONE IR [...] hours as needed for wheezing/shortness of breath. 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 Normal [facility] UA DIP, URINE (POC)on 2023 BILIRUBIN UA (POCT) Negative Negative [facility] CLARITY UA (POCT) Cloudy [facility] COLOR UA (POCT) Yellow [facility] GLUCOSE UA (POCT) Negative Negative mg/dL [facility] Hemoglobin Ql (U) Moderate Abnormal Negative [facility] Interpretation and review of laboratory results Abnormal [facility] KETONE UA (POCT) Negative Negative mg/dL [facility] LEUKOCYTES UA (POCT) Large Abnormal [facility] NITRITE UA (POCT) Positive Abnormal Negative [facility] PH UA (POCT) 5.5 4.5 - 8.0 [facility] Protein Ql (U) 100 mg/dL Abnormal Negative [facility] SPECIFIC GRAVITY UA (POCT) 1.025 1.005 - 1.030 [facility] UROBILINOGEN UA (POCT) 0.2 Carlita l E.U./dL [facility] Location:[address], [place], [address] [facility] POINT OF CARE [facility] Prothrombin Time w/INRon INR Coag (PPP) [Relative time] 2.6 {INR} Normal [facility] Comment on above: Performed By: #### L 300.3900 ####[facility] [address] [place], [place], [address] PT Coag (PPP) [Time] 27.9 s High 11.7-14.9 [facility] Comment on above: Performed By: #### L [id number] ####[facility] [address] [place], [place], [address] CNOVon 08-03-2024 CNOV Office Visit (RONI) KEISHA RED ([id number]) 1945 F Date Time Provider Department 08/03/24 8:00 AM XOCHITL CASTREJON During your visit today, we recorded the following information about you: Pulse Respiration Blood pressure Weight Normal [facility] CNPNon [facility]-03-2024 [facility] ZAYKEISHA Barry ([id number]) 1945 F Date Time Provider Department 08/03/24 XOCHITL CASTREJON During your visit today, we recorded the following information about you: Jamari Maki MA 08/03/2024 1:48 PM Signed Vitamin b12 ordered by Dr. Castrejon and patient had drawn at [facility]. View External Labs - Vit B12,INR, [ID [id number]] Please review and advise. Jamari Maki MA [...] hours as needed for wheezing/shortness of breath. 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 Normal [facility] CNPN Telephone (INTMWS) KEISHA RED ([id number]) 1945 F Date Time Provider Department 08/03/24 XOCHITL CASTREJON INTMWS During your visit today, we recorded the following information about you: Roopa Edgar RN 08/03/2024 11:13 AM Signed Daughter (Dian) calls to let provider know that she has spoke with Maddie from [facility] and patients pacemaker is MRI compatible and she could have it done at the [facility] location. Prior Auth is pending. VLAD Reyna Rachel L, MA 08/03/2024 12:08 PM Signed Phone call to Dian to inform that neither [facility] or [facility] do the type of MRI that was ordered. Informed Dian that I will have a collection systems worker call her to get testing scheduled. Pacemaker card printed from [facility] [employer]. Sent to scanning. Sheridan, can you please [...] hours as needed for wheezing/shortness of breath. 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 Normal [facility] Prothrombin Time w/INRon INR Coag (PPP) [Relative time] 2.8 {INR} Normal [facility] Comment on above: Performed By: #### L 300.3900, L503.0105 ####[facility] [address] [place], [address] PT Coag (PPP) [Time] 29.2 s High 11.7-14.9 [facility] Comment on above: Performed By: #### L 300.3900, L503.0105 ####[facility] [address] [place], [address] Vitamin B12on 08-03-2024 Cobalamin (Vitamin B12) [Mass/Vol] 889 pg/mL Normal 211-911 [facility] Comment on above: Performed By: #### L 300.3900, L503.0105 ####[facility] [address] [place], [address] Prothrombin Time w/INRon INR Coag (PPP) [Relative time] 1.7 {INR} Normal [facility] Comment on above: Performed By: #### L 300.3900 ####[facility] [address] [place], [address] PT Coag (PPP) [Time] 20.0 s High 11.7-14.9 [facility] Comment on above: Performed By: #### L 300.3900 ####[facility] [address] [place], [place], [address] Pacemaker Checkon 07-19-2024 Pacemaker Check Normal [facility] Prothrombin Time w/INRon INR Coag (PPP) [Relative time] 2.8 {INR} Normal [facility] Comment on above: Performed By: #### L 300.3900 ####[facility] [address] [place], [place], [address] PT Coag (PPP) [Time] 29.2 s High 11.7-14.9 [facility] Comment on above: Performed By: #### L 056.3900 ####[facility] [address] [place], [place], [address] CNPNon 07-06-2024 [facility] Telephone (INTMWS) KEISHA RDE ([id number]) 1945 F Date Time Provider Department 07/06/24 JOON LOPEZ INTWS During your visit today, [...] hours as needed for wheezing/shortness of breath. 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 12/10/2019 Koen Herbert Problem List As Of Date 07/06/2024 [...] Encounter Status:Closed by GUERLINE DAVILA [facility]11/24 [facility] Tele[facility] (INTMWS) KEISHA RED ([id number]) 1945 F Date Time Provider Department 07/05/24 JOON LOPEZ INTMWS During your visit today, we recorded the following information about you: Ramila Guerrero 07/05/2024 1:19 PM Signed Patient called to refill her oxycodone rx; not on current med list. Uses [employer] in [employer]. Carolina Kuo LPN 07/05/2024 1:43 PM Signed [...] hours as needed for wheezing/shortness of breath. 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 Normal [facility] Protime w/INR Fingerstickon 07-04-2024 INR Coag (PPP) [Relative time] 2.0 {INR} Normal [facility] Comment on above: Result Comment: Crit ical Value > 4.0 Performed By: #### L 9200.0000 ####[facility] [address] [place], [place], [address] Protime Coagsen 21.0 SEC High 11.7-14.9 [facility] Comment on above: Performed By: #### L 9200.0000 ####[facility] [address] [place], [address] TXT:Device Implant / Explant on 07-04-2024 TXT:Device Implant / Explant Normal [facility] Pulmonary Visit Reporton Pulmonary Visit Report Normal [facility] CNPNon 06-28-2024 [facility] Telephone (FAMWS) KEISHA RED ([id number]) 1945 F Date Time Provider Department 06/28/24 JOON LOPEZ [facility] During your visit today, we recorded the following information about you: Any Peacock LPN 06/28/2024 2:56 PM Signed Mary Jo with [facility] [employer] is calling in regards to rx for Symbicort 160-4.5 mg inhaler. Mary Jo reports pt cannot afford Symbicort and the [employer] does not have a patient assistance program. Mary Jo reports the [employer] for Breo does have an assistance program and is asking if pcp would prescribe pt Breo inhaler instead. If so Mary Jo is requesting rx be faxed to [phone] Attn: Mary Jo. BOONE Fowler Liza D, MD 06/29/2024 1:16 PM Signed Patient's request for medication is as follows: Requested Prescriptions Signed Prescriptions Disp Refills fluticasone-vilanter ol (BREO ELLIPTA) 100-25 mcg/dose inhaler 180 Each 3 Sig: Inhale 1 Inhalation as instructed once daily. Authorizing Provider: JOON LOPEZ Prescription(s) printed as above. Please process accordingly. Sylwia Vasquez LPN 06/29/2024 4:25 PM Signed Order faxed to the number listed for the [facility]. Sylwia Vasquez LPN Allergies As of Date: 06/28/2024 Noted [...] hours as needed for wheezing/shortness of breath. 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 Normal [facility] CNOVon 06-22-2024 CNOV Office Visit (INTMWS) KEISHA RED ([id number]) 1945 F Date Time Provider Department 06/22/24 9:20 AM JOON LOPEZ INTMWS During your visit today, we recorded the following information about you: Temperature Pulse Respiration Blood pressure 97.1 degrees 86/minute 16/minute 110/56 Weight Height 85.3 kg 1.676 m Joon Lopez MD 06/22/2024 11:00 AM Signed This note was created using [employer]. Subjective Keisha Red is a 79 year [...] a recent hospitalization. Patient was admitted to [facility] on the for confusion and was [...] Right shoulder s/p fall with reduction at [facility] No date: Type II or unspecified type diabetes mellitus without mention of complication, not stated as uncontrolled No date: Unspecified asthma(493.90) No date: Unspecified essential hypertension Current Outpatient Medications Medication Sig albuterol HFA (PROAIR HFA) 90 mcg/actuation inhaler Inhale 2 Puffs as instructed every 4 hours as needed for wheezing/shortness of breath. 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 ([facility] pulmonology) blood sugar diagnostic (BLOOD GLUCOSE [...] Conjunctiva/sclera: Conjunctivae (more content not included)... Normal [facility] CBC W/Diff, Automatedon 08-2 Absolute Neut Normal 2.0-7.7 [facility] Comment on above: Result Comment: Canc elled via OM: Order cancelled - Patient discharged Performed By: #### L 500.4050, L100.0100 ####[facility] [address] [place], [address] HCT Normal 37-47 [facility] Comment on above: Result Comment: Canc elled via OM: Order cancelled - Patient discharged Performed By: #### L 500.4050, L100.0100 ####[facility] [address] [place], [address] HGB Normal 12.0-15.0 [facility] Comment on above: Result Comment: Canc elled via OM: Order cancelled - Patient discharged Performed By: #### L 500.4050, L100.0100 ####[facility] [address] [place], [address] MCH Normal 27.0-32.0 [facility] Comment on above: Result Comment: Canc elled via OM: Order cancelled - Patient discharged Performed By: #### L 500.4050, L100.0100 ####[facility] [address] [place], [address] MCHC Normal 32-36 [facility] Comment on above: Result Comment: Canc elled via OM: Order cancelled - Patient discharged Performed By: #### L 500.4050, L100.0100 ####[facility] [address] [place], [address] MCV Normal 81-99 [facility] Comment on above: Result Comment: Canc elled via OM: Order cancelled - Patient discharged Performed By: #### L 500.4050, L100.0100 ####[facility] [address] [place], [address] NEUT% Normal 47-70 [facility] Comment on above: Result Comment: Canc elled via OM: Order cancelled - Patient discharged Performed By: #### L 500.4050, L100.0100 ####[facility] [address] [place], [address] PLT Normal 150-450 [facility] Comment on above: Result Comment: Canc elled via OM: Order cancelled - Patient discharged Performed By: #### L 500.4050, L100.0100 ####[facility] [address] [place], [address] RBC Normal 4.2-5.4 [facility] Comment on above: Result Comment: Canc elled via OM: Order cancelled - Patient discharged Performed By: #### L 500.4050, L100.0100 ####[facility] [address] [place], [address] RDW CV Normal 11.6-14.6 [facility] Comment on above: Result Comment: Canc elled via OM: Order cancelled - Patient discharged Performed By: #### L 500.4050, L100.0100 ####[facility] [address] [place], [address] RDW SD Normal 35.1-43.9 [facility] Comment on above: Result Comment: Canc elled via OM: Order cancelled - Patient discharged Performed By: #### L 500.4050, L100.0100 ####[facility] [address] [place], [address] WBC Normal 4.4-11.0 [facility] Comment on above: Result Comment: Canc elled via OM: Order cancelled - Patient discharged Performed By: #### L 500.4050, L100.0100 ####[facility] [address] [place], [address] CNPNon 06-21-2024 [facility] Telephone (INTMWS) KEISHA RED ([id number]) 1945 F Date Time Provider Department 06/21/24 JOON LOPEZ INTMWS During your visit today, we recorded the following information about you: Maddie Rojo LPN 06/21/2024 3:31 PM Signed Soren with [facility], nursing called to report he did a resumption of pt and will be seeing pt starting next week. will see 1 time a week for 2 weeks. Dx: disease management education. [facility] took pt off the Flexeril because they thought this may be contributing to her confusion. No call back needed. Maddie Rojo, Trini Lozoya APRN.PACKAGING OPERATOR 06/21/2024 4:09 PM Signed Noted. Okay for [...] MA - Fully Assessed Reason for Visit: [facility] nursing [Other] Prescriptions as of 06/21/2024 - albuterol HFA (PROAIR HFA) 90 mcg/actuation inhaler Inhale 2 Puffs as instructed every 4 hours as needed for wheezing/shortness of breath. 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 ([facility] pulmonology) - blood sugar diagnostic (BLOOD [...] Status:Closed by TRINI TANG on 06/21/24 Normal [facility] Metabolic Prof rupalion 06-21-2024 ALB Normal 3.2-5.0 [facility] Comment on above: Result Comment: Canc elled via OM: Order cancelled - Patient discharged Performed By: #### L 500.4050, L100.0100 ####[facility] [address] [place], [address] ALK P Normal 45-117 [facility] Comment on above: Result Comment: Canc elled via OM: Order cancelled - Patient discharged Performed By: #### L 500.4050, L100.0100 ####[facility] [address] [place], [address] ALT Normal 13-56 [facility] Comment on above: Result Comment: Canc elled via OM: Order cancelled - Patient discharged Performed By: #### L 500.4050, L100.0100 ####[facility] [address] [place], [address] AST Normal 15-37 [facility] Comment on above: Result Comment: Canc elled via OM: Order cancelled - Patient discharged Performed By: #### L 500.4050, L100.0100 ####[facility] [address] [place], [address] BUN Normal 7-18 [facility] Comment on above: Result Comment: Canc elled via OM: Order cancelled - Patient discharged Performed By: #### L 500.4050, L100.0100 ####[facility] [address] [place], [address] BUN/CRE Normal 10-20 [facility] Comment on above: Result Comment: Canc elled via OM: Order cancelled - Patient discharged Performed By: #### L 500.4050, L100.0100 ####[facility] [address] [place], [address] CA,Total Normal 8.5-10.1 [facility] Comment on above: Result Comment: Canc elled via OM: Order cancelled - Patient discharged Performed By: #### L 500.4050, L100.0100 ####[facility] [address] [place], [address] CL Normal 98-107 [facility] Comment on above: Result Comment: Canc elled via OM: Order cancelled - Patient discharged Performed By: #### L 500.4050, L100.0100 ####[facility] [address] [place], [address] CO2 Normal 21.0-32.0 [facility] Comment on above: Result Comment: Canc elled via OM: Order cancelled - Patient discharged Performed By: #### L 500.4050, L100.0100 ####[facility] [address] [place], [address] CREAT,SERUM Normal 0.55-1.02 [facility] Comment on above: Result Comment: Canc elled via OM: Order cancelled - Patient discharged Performed By: #### L 500.4050, L100.0100 ####[facility] [address] [place], [address] EST GFR Normal >60 [facility] Comment on above: Result Comment: Canc elled via OM: Order cancelled - Patient discharged Performed By: #### L 500.4050, L100.0100 ####[facility] [address] [place], [address] EST GFR - AA Normal >60 [facility] Comment on above: Result Comment: Canc elled via OM: Order cancelled - Patient discharged Performed By: #### L 500.4050, L100.0100 ####[facility] [address] [place], [address] GAP Normal 5-15 [facility] Comment on above: Result Comment: Canc elled via OM: Order cancelled - Patient discharged Performed By: #### L 500.4050, L100.0100 ####[facility] [address] [place], [address] GLU Normal 74-106 [facility] Comment on above: Result Comment: Canc elled via OM: Order cancelled - Patient discharged Performed By: #### L 500.4050, L100.0100 ####[facility] [address] [place], [address] Potassium Normal 3.5-5.1 [facility] Comment on above: Result Comment: Canc elled via OM: Order cancelled - Patient discharged Performed By: #### L 500.4050, L100.0100 ####[facility] [address] [place], [address] T BILI Normal 0.20-1.00 [facility] Comment on above: Result Comment: Canc elled via OM: Order cancelled - Patient discharged Performed By: #### L 500.4050, L100.0100 ####[facility] [address] [place], [address] T PROT Normal 6.4-8.2 [facility] Comment on above: Result Comment: Canc elled via OM: Order cancelled - Patient discharged Performed By: #### L 500.4050, L100.0100 ####[facility] [address], [address] Comprehensive Metabolic Profil Normal 136-145 [facility] Comment on above: Result Comment: Canc elled via OM: Order cancelled - Patient discharged Performed By: #### L 500.4050, L100.0100 ####[facility] [address] [place], [address] CBC W/Diff, Automatedon 08-2 -2023 Absolute Neut Normal 2.0-7.7 [facility] Comment on above: Result Comment: Canc elled via OM: Order cancelled - Patient discharged Performed By: #### L 500.4050, L100.0100 ####[facility] [address] [place], [address] HCT Normal 37-47 [facility] Comment on above: Result Comment: Canc elled via OM: Order cancelled - Patient discharged Performed By: #### L 500.4050, L100.0100 ####[facility] [address] [place], [address] HGB Normal 12.0-15.0 [facility] Comment on above: Result Comment: Canc elled via OM: Order cancelled - Patient discharged Performed By: #### L 500.4050, L100.0100 ####[facility] [address] [place], [address] MCH Normal 27.0-32.0 [facility] Comment on above: Result Comment: Canc elled via OM: Order cancelled - Patient discharged Performed By: #### L 500.4050, L100.0100 ####[facility] [address] [place], [address] MCHC Normal 32-36 [facility] Comment on above: Result Comment: Canc elled via OM: Order cancelled - Patient discharged Performed By: #### L 500.4050, L100.0100 ####[facility] [address] [place], [address] MCV Normal 81-99 [facility] Comment on above: Result Comment: Canc elled via OM: Order cancelled - Patient discharged Performed By: #### L 500.4050, L100.0100 ####[facility] [address] [place], [address] NEUT% Normal 47-70 [facility] Comment on above: Result Comment: Canc elled via OM: Order cancelled - Patient discharged Performed By: #### L 500.4050, L100.0100 ####[facility] [address] [place], [address] PLT Normal 150-450 [facility] Comment on above: Result Comment: Canc elled via OM: Order cancelled - Patient discharged Performed By: #### L 500.4050, L100.0100 ####[facility] [address] [place], [address] RBC Normal 4.2-5.4 [facility] Comment on above: Result Comment: Canc elled via OM: Order cancelled - Patient discharged Performed By: #### L 500.4050, L100.0100 ####[facility] [address] [place], [address] RDW CV Normal 11.6-14.6 [facility] Comment on above: Result Comment: Canc elled via OM: Order cancelled - Patient discharged Performed By: #### L 500.4050, L100.0100 ####[facility] [address] [place], [address] RDW SD Normal 35.1-43.9 [facility] Comment on above: Result Comment: Canc elled via OM: Order cancelled - Patient discharged Performed By: #### L 500.4050, L100.0100 ####[facility] [address] [place], [address] WBC Normal 4.4-11.0 [facility] Comment on above: Result Comment: Canjalyn elled via OM: Order cancelled - Patient discharged Performed By: #### L 500.4050, L100.0100 ####[facility] [address] [place], [address] CNPNon 06-20-2024 CNPN Telephone (4CQ) KEISHA RED ([id number]) 1945 F Date Time Provider Department 06/20/24 JOON LOPEZ 4CQ During your visit today, we recorded the following information about you: Ira Chicas 06/20/2024 1:48 PM Signed Patient called to confirm appointment for 06/22 and then mention that she was discharged from [facility] on Tuesday 06/19 for dehydration. Guerline [...] hours as needed for wheezing/shortness of breath. 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 ([facility] pulmonology) - blood sugar diagnostic (BLOOD [...] Status:Closed by GUERLINE DAVILA on 06/20/24 Normal [facility] Metabolic Prof redd 06-20-2024 ALB Normal 3.2-5.0 [facility] Comment on above: Result Comment: Canc elled via OM: Order cancelled - Patient discharged Performed By: #### L 500.4050, L100.0100 ####[facility] [address] [place], [address] ALK P Normal 45-117 [facility] Comment on above: Result Comment: Canc elled via OM: Order cancelled - Patient discharged Performed By: #### L 500.4050, L100.0100 ####[facility] [address] [place], [address] ALT Normal 13-56 [facility] Comment on above: Result Comment: Canc elled via OM: Order cancelled - Patient discharged Performed By: #### L 500.4050, L100.0100 ####[facility] [address] [place], [address] AST Normal 15-37 [facility] Comment on above: Result Comment: Canc elled via OM: Order cancelled - Patient discharged Performed By: #### L 500.4050, L100.0100 ####[facility] [address] [place], [address] BUN Normal 7-18 [facility] Comment on above: Result Comment: Canc elled via OM: Order cancelled - Patient discharged Performed By: #### L 500.4050, L100.0100 ####[facility] [address] [place], [address] BUN/CRE Normal 10-20 [facility] Comment on above: Result Comment: Canc elled via OM: Order cancelled - Patient discharged Performed By: #### L 500.4050, L100.0100 ####[facility] [address] [place], [address] CA,Total Normal 8.5-10.1 [facility] Comment on above: Result Comment: Canc elled via OM: Order cancelled - Patient discharged Performed By: #### L 500.4050, L100.0100 ####[facility] [address] [place], [address] CL Normal 98-107 [facility] Comment on above: Result Comment: Canc elled via OM: Order cancelled - Patient discharged Performed By: #### L 500.4050, L100.0100 ####[facility] [address] [place], [address] CO2 Normal 21.0-32.0 [facility] Comment on above: Result Comment: Canc elled via OM: Order cancelled - Patient discharged Performed By: #### L 500.4050, L100.0100 ####[facility] [address] [place], [address] CREAT,SERUM Normal 0.55-1.02 [facility] Comment on above: Result Comment: Canc elled via OM: Order cancelled - Patient discharged Performed By: #### L 500.4050, L100.0100 ####[facility] [address] [place], [address] EST GFR Normal >60 [facility] Comment on above: Result Comment: Canc elled via OM: Order cancelled - Patient discharged Performed By: #### L 500.4050, L100.0100 ####[facility] [address] [place], [address] EST GFR - AA Normal >60 [facility] Comment on above: Result Comment: Canc elled via OM: Order cancelled - Patient discharged Performed By: #### L 500.4050, L100.0100 ####[facility] [address] [place], [address] GAP Normal 5-15 [facility] Comment on above: Result Comment: Canc elled via OM: Order cancelled - Patient discharged Performed By: #### L 500.4050, L100.0100 ####[facility] [address] [place], [address] GLU Normal 74-106 [facility] Comment on above: Result Comment: Canc elled via OM: Order cancelled - Patient discharged Performed By: #### L 500.4050, L100.0100 ####[facility] [address] [place], [address] Potassium Normal 3.5-5.1 [facility] Comment on above: Result Comment: Canc elled via OM: Order cancelled - Patient discharged Performed By: #### L 500.4050, L100.0100 ####[facility] [address] [place], [address] T BILI Normal 0.20-1.00 [facility] Comment on above: Result Comment: Canc elled via OM: Order cancelled - Patient discharged Performed By: #### L 500.4050, L100.0100 ####[facility] [address] [place], [address] T PROT Normal 6.4-8.2 [facility] Comment on above: Result Comment: Canc elled via OM: Order cancelled - Patient discharged Performed By: #### L 500.4050, L100.0100 ####[facility] [address] [place], [address] Comprehensive Metabolic Profil Normal 136-145 [facility] Comment on above: Result Comment: Canc elled via OM: Order cancelled - Patient discharged Performed By: #### L 500.4050, L100.0100 ####[facility] [address] [place], [address] CBC W/Diff, Automatedon 08-2 Absolute Neut Normal 2.0-7.7 [facility] Comment on above: Result Comment: Canc elled via OM: Order cancelled - Patient discharged Performed By: #### L 500.4050, L100.0100 ####[facility] [address] [place], [address] HCT Normal 37-47 [facility] Comment on above: Result Comment: Canc elled via OM: Order cancelled - Patient discharged Performed By: #### L 500.4050, L100.0100 ####[facility] [address] [place], [address] HGB Normal 12.0-15.0 [facility] Comment on above: Result Comment: Canc elled via OM: Order cancelled - Patient discharged Performed By: #### L 500.4050, L100.0100 ####[facility] [address], [address] MCH Normal 27.0-32.0 [facility] Comment on above: Result Comment: Canc elled via OM: Order cancelled - Patient discharged Performed By: #### L 500.4050, L100.0100 ####[facility] [address] [place], [address] MCHC Normal 32-36 [facility] Comment on above: Result Comment: Canc elled via OM: Order cancelled - Patient discharged Performed By: #### L 500.4050, L100.0100 ####[facility] [address] [place], [address] MCV Normal 81-99 [facility] Comment on above: Result Comment: Canc elled via OM: Order cancelled - Patient discharged Performed By: #### L 500.4050, L100.0100 ####[facility] [address] [place], [address] NEUT% Normal 47-70 [facility] Comment on above: Result Comment: Canc elled via OM: Order cancelled - Patient discharged Performed By: #### L 500.4050, L100.0100 ####[facility] [address], [address] PLT Normal 150-450 [facility] Comment on above: Result Comment: Canc elled via OM: Order cancelled - Patient discharged Performed By: #### L 500.4050, L100.0100 ####[facility] [address] [place], [address] RBC Normal 4.2-5.4 [facility] Comment on above: Result Comment: Canc elled via OM: Order cancelled - Patient discharged Performed By: #### L 500.4050, L100.0100 ####[facility] [address] [place], [address] RDW CV Normal 11.6-14.6 [facility] Comment on above: Result Comment: Canc elled via OM: Order cancelled - Patient discharged Performed By: #### L 500.4050, L100.0100 ####[facility] [address] [place], [address] RDW SD Normal 35.1-43.9 [facility] [facility] Comment on above: Result Comment: Canc elled via OM: Order cancelled - Patient discharged Performed By: #### L 500.4050, L100.0100 ####[facility] [address] [place], [address] WBC Normal 4.4-11.0 [facility] Comment on above: Result Comment: Canc elled via OM: Order cancelled - Patient discharged Performed By: #### L 500.4050, L100.0100 ####[facility] [address] [place], [address] Comprehensive Metabolic Prof ilon 06-19-2024 ALB Normal 3.2-5.0 [facility] Comment on above: Result Comment: Canc elled via OM: Order cancelled - Patient discharged Performed By: #### L 500.4050, L100.0100 ####[facility] [address] [place], [address] ALK P Normal 45-117 [facility] Comment on above: Result Comment: Canc elled via OM: Order cancelled - Patient discharged Performed By: #### L 500.4050, L100.0100 ####[facility] [address] [place], [address] ALT Normal 13-56 [facility] Comment on above: Result Comment: Canc elled via OM: Order cancelled - Patient discharged Performed By: #### L 500.4050, L100.0100 ####[facility] [address] [place], [address] AST Normal 15-37 [facility] Comment on above: Result Comment: Canc elled via OM: Order cancelled - Patient discharged Performed By: #### L 500.4050, L100.0100 ####[facility] [address] [place], [address] BUN Normal 7-18 [facility] Comment on above: Result Comment: Canc elled via OM: Order cancelled - Patient discharged Performed By: #### L 500.4050, L100.0100 ####[facility] [address] [place], [address] BUN/CRE Normal 10-20 [facility] Comment on above: Result Comment: Canc elled via OM: Order cancelled - Patient discharged Performed By: #### L 500.4050, L100.0100 ####[facility] [address] [place], [address] CA,Total Normal 8.5-10.1 [facility] Comment on above: Result Comment: Canc elled via OM: Order cancelled - Patient discharged Performed By: #### L 500.4050, L100.0100 ####[facility] [address] [place], [address] CL Normal 98-107 [facility] Comment on above: Result Comment: Canc elled via OM: Order cancelled - Patient discharged Performed By: #### L 500.4050, L100.0100 ####[facility] [address] [place], [address] CO2 Normal 21.0-32.0 [facility] Comment on above: Result Comment: Canc elled via OM: Order cancelled - Patient discharged Performed By: #### L 500.4050, L100.0100 ####[facility] [address] [place], [address] CREAT,SERUM Normal 0.55-1.02 [facility] Comment on above: Result Comment: Canc elled via OM: Order cancelled - Patient discharged Performed By: #### L 500.4050, L100.0100 ####[facility] [address] [place], [address] EST GFR Normal >60 [facility] Comment on above: Result Comment: Canc elled via OM: Order cancelled - Patient discharged Performed By: #### L 500.4050, L100.0100 ####[facility] [address] [place], [address] EST GFR - AA Normal >60 [facility] Comment on above: Result Comment: Canc elled via OM: Order cancelled - Patient discharged Performed By: #### L 500.4050, L100.0100 ####[facility] [address] [place], [address] GAP Normal 5-15 [facility] Comment on above: Result Comment: Canc elled via OM: Order cancelled - Patient discharged Performed By: #### L 500.4050, L100.0100 ####[facility] [address] [place], [address] GLU Normal 74-106 [facility] Comment on above: Result Comment: Canc elled via OM: Order cancelled - Patient discharged Performed By: #### L 500.4050, L100.0100 ####[facility] [address] [place], [address] Potassium Normal 3.5-5.1 [facility] Comment on above: Result Comment: Canc elled via OM: Order cancelled - Patient discharged Performed By: #### L 500.4050, L100.0100 ####[facility] [address] [place], [address] T BILI Normal 0.20-1.00 [facility] Comment on above: Result Comment: Canc elled via OM: Order cancelled - Patient discharged Performed By: #### L 500.4050, L100.0100 ####[facility] [address] [place], [address] T PROT Normal 6.4-8.2 [facility] Comment on above: Result Comment: Canc elled via OM: Order cancelled - Patient discharged Performed By: #### L 500.4050, L100.0100 ####[facility] [address] [place], [address] Comprehensive Metabolic Profil Normal 136-145 [facility] Comment on above: Result Comment: Canc elled via OM: Order cancelled - Patient discharged Performed By: #### L 500.4050, L100.0100 ####[facility] [address] [place], [address] Bedside Glucoseon 06-18-2024 FINGERSTICK GLU 128 mg/dL High 74-106 [facility] Comment on above: Result Comment: PANFILO GEMENT OF PATIENT CARE PER NURSING PROTOCOL Performed By: #### L 501.080 ####[facility] [address] [place], [address] FINGERSTICK GLU 119 mg/dL High 74-106 [facility] Comment on above: Result Comment: PANFILO GEMENT OF PATIENT CARE PER NURSING PROTOCOL Performed By: #### L 501.080 ####[facility] [address] [place], [address] CBC W/Diff, Automatedon 05-27 Absolute Lymph 0.92 X10 3/uL Normal 0.83-4.51 [facility] Comment on above: Performed By: #### L 500.4050, L501.5200, L100.0100 ####[facility] [address] [place], [address] Absolute Neut 1.9 X10 3/uL Low 2.0-7.7 [facility] Comment on above: Performed By: #### L 500.4050, L501.5200, L100.0100 ####[facility] [address] [place], [address] Basophils/100 WBC (Bld) 1.2 % High 0-1 [facility] Comment on above: Performed By: #### L 500.4050, L501.5200, L100.0100 ####[facility] [address] [place], [address] Eosinophils/100 WBC (Bld) 6.9 % High 0-5 [facility] Comment on above: Performed By: #### L 500.4050, L501.5200, L100.0100 ####[facility] [address] [place], [address] Erythrocyte distribution width (RBC) [Ratio] 12.3 % Normal 11.6-14.6 [facility] Comment on above: Performed By: #### L 500.4050, L501.5200, L100.0100 ####[facility] [address] [place], [address] Hematocrit (Bld) [Volume fraction] 35.2 % Low 37-47 [facility] Comment on above: Performed By: #### L 500.4050, L501.5200, L100.0100 ####[facility] [address] [place], [address] Hemoglobin (Bld) [Mass/Vol] 11.8 g/dL Low 12.0-15.0 [facility] Comment on above: Performed By: #### L 500.4050, L501.5200, L100.0100 ####[facility] [address] [place], [address] IG% 0.000 Normal 0.0-0.9 [facility] Comment on above: Result Comment: IG% - Immature Granulocytes (promyelocytes, myelocytes andmetamyelocytes) > 1% indicates that a LEFT SHIFT is Present. Performed By: #### L 500.4050, L501.5200, L100.0100 ####[facility] [address] [place], [address] Lymphocytes/100 WBC (Bld) 26.5 % Normal 19-41 [facility] Comment on above: Performed By: #### L 500.4050, L501.5200, L100.0100 ####[facility] [address] [place], [address] MCH (RBC) [Entitic mass] 32.3 pg High 27.0-32.0 [facility] Comment on above: Performed By: #### L 500.4050, L501.5200, L100.0100 ####[facility] [address] [place], [address] MCHC (RBC) [Mass/Vol] 33.5 g/dL Normal 32-36 [facility] Comment on above: Performed By: #### L 500.4050, L501.5200, L100.0100 ####[facility] [address] [place], [address] MCV (RBC) [Entitic vol] 96.4 fL Normal 81-99 [facility] Comment on above: Performed By: #### L 500.4050, L501.5200, L100.0100 ####[facility] [address] [place], [address] Monocytes/100 WBC (Bld) 11.2 % High 0-10 [facility] Comment on above: Performed By: #### L 500.4050, L501.5200, L100.0100 ####[facility] [address] [place], [address] Neutrophils/100 WBC (Bld) 54.2 % Normal 47-70 [facility] Comment on above: Performed By: #### L 500.4050, L501.5200, L100.0100 ####[facility] [address] [place], [address] Nucleated RBC (Bld) [#/Vol] 0 10*3/uL Normal 0-5 [facility] Comment on above: Performed By: #### L 500.4050, L501.5200, L100.0100 ####[facility] [address] [place], [address] Platelet mean volume (Bld) [Entitic vol] 9.8 fL Normal 6.2-12.0 [facility] Comment on above: Performed By: #### L 500.4050, L501.5200, L100.0100 ####[facility] [address] [place], [address] Platelets (Bld) [#/Vol] 129 10*3/uL Low 150-450 [facility] Comment on above: Performed By: #### L 500.4050, L501.5200, L100.0100 ####[facility] [address] [place], [address] RBC (Bld) [#/Vol] 3.65 10*6/uL Low 4.2-5.4 [facility] Comment on above: Performed By: #### L 500.4050, L501.5200, L100.0100 ####[facility] [address] [place], [address] RDW SD 43.8 fl Normal 35.1-43.9 [facility] Comment on above: Performed By: #### L 500.4050, L501.5200, L100.0100 ####[facility] [address] [place], [address] WBC (Bld) [#/Vol] 3.5 10*3/uL Low 4.4-11.0 [facility] Comment on above: Performed By: #### L 500.4050, L501.5200, L100.0100 ####[facility] [address] [place], [address] Comprehensive Metabolic [facility] 06-18-2024 Albumin [Mass/Vol] 2.9 g/dL Low 3.2-5.0 [facility] Comment on above: Performed By: #### L 500.4050, L501.5200, L100.0100 ####[facility] [address] [place], [address] Albumin/Globulin [Mass ratio] 0.8 {ratio} Low 0.9-2.4 [facility] Comment on above: Performed By: #### L 500.4050, L501.5200, L100.0100 ####[facility] [address] [place], [address] ALK P 89 U/L Normal 45-117 [facility] Comment on above: Performed By: #### L 500.4050, L501.5200, L100.0100 ####[facility] [address] [place], [address] ALT [Catalytic activity/Vol] 16 U/L Normal 13-56 [facility] Comment on above: Performed By: #### L 500.4050, L501.5200, L100.0100 ####[facility] [address] [place], [address] AST [Catalytic activity/Vol] 19 U/L Normal 15-37 [facility] Comment on above: Performed By: #### L 500.4050, L501.5200, L100.0100 ####[facility] [address] [place], [address] Bilirubin [Mass/Vol] 0.60 mg/dL Normal 0.20-1.00 [facility] Comment on above: Result Comment: For patients on eltrombopag therapy, use of Dimension [place] TBIL is not recommended. Performed By: #### L 500.4050, L501.5200, L100.0100 ####[facility] [address] [place], [address] BUN/CRE 15.0 RATIO Normal 10-20 [facility] Comment on above: Performed By: #### L 500.4050, L501.5200, L100.0100 ####[facility] [address] [place], [address] CA,Total 9.2 mg/dL Normal 8.5-10.1 [facility] Comment on above: Performed By: #### L 500.4050, L501.5200, L100.0100 ####[facility] [address] [place], [address] Chloride [Moles/Vol] 106 mmol/L Normal 98-107 [facility] Comment on above: Performed By: #### L 500.4050, L501.5200, L100.0100 ####[facility] [address] [place], [address] CO2 [Moles/Vol] 26.0 mmol/L Normal 21.0-32.0 [facility] Comment on above: Performed By: #### L 500.4050, L501.5200, L100.0100 ####[facility] [address] [place], [address] Creatinine [Mass/Vol] 0.80 mg/dL Normal 0.55-1.02 [facility] Comment on above: Result Comment: The validity of the calculated GFR GFRAA in patients over70 years has not been determined. Clinical correlation isessential. Performed By: #### L 500.4050, L501.5200, L100.0100 ####[facility] [address] [place], [address] ECRCL 66.34 ml/min Normal [facility] Comment on above: Performed By: #### L 500.4050, L501.5200, L100.0100 ####[facility] [address] [place], [address] EST GFR - AA 90 mL/min Normal >60 [facility] Comment on above: Result Comment: Afri can [place] GFR Calc Performed By: #### L 500.4050, L501.5200, L100.0100 ####[facility] [address] [place], [address] GAP 7 Normal 5-15 [facility] Comment on above: Performed By: #### L 500.4050, L501.5200, L100.0100 ####[facility] [address] [place], [address] GFR/1.73 sq M.predicted among non-blacks MDRD (S/P/Bld) [Vol rate/Area] 74 mL/min/{1.73_m2} Normal >60 [facility] Comment on above: Result Comment: Non- GFR Calc Performed By: #### L 500.4050, L501.5200, L100.0100 ####[facility] [address] [place], [address] Globulin (S) [Mass/Vol] 3.5 g/dL Normal 2.2-4.2 [facility] Comment on above: Performed By: #### L 500.4050, L501.5200, L100.0100 ####[facility] [address] [place], [address] Glucose [Mass/Vol] 126 mg/dL High 74-106 [facility] Comment on above: Result Comment: Fast ing Glucose result greater than or equal to 126 mg/dLsuggests DIABETES MELLITUS per A.D.A. criteria. Performed By: #### L 500.4050, L501.5200, L100.0100 ####[facility] [address] [place], [address] Potassium [Moles/Vol] 3.6 mmol/L Normal 3.5-5.1 [facility] Comment on above: Performed By: #### L 500.4050, L501.5200, L100.0100 ####[facility] [address] [place], [address] Sodium [Moles/Vol] 139 mmol/L Normal 136-145 [facility] Comment on above: Performed By: #### L 500.4050, L501.5200, L100.0100 ####[facility] [address] [place], [address] T PROT 6.4 g/dL Normal 6.4-8.2 [facility] Comment on above: Performed By: #### L 500.4050, L501.5200, L100.0100 ####[facility] [address] [place], [address] Urea nitrogen [Mass/Vol] 12 mg/dL Normal 7-18 [facility] Comment on above: Performed By: #### L 500.4050, L501.5200, L100.0100 ####[facility] [address] [place], [address] Discharge Instructionon 05-27 Discharge Instruction Normal [facility] Magnesiumon 06-18-2024 Magnesium [Mass/Vol] 1.6 mg/dL Normal 1.6-2.6 [facility] Comment on above: Performed By: #### L 500.4050, L501.5200, L100.0100 ####[facility] [address] [place], [address] Phosphoruson 06-18-2024 Phosphate [Mass/Vol] 3.8 mg/dL Normal 2.5-4.9 [facility] Comment on above: Performed By: #### L 501.2300 ####[facility] [address] [place], [address] Bedside Glucoseon 06-17-2024 FINGERSTICK GLU 120 mg/dL High 74-106 [facility] Comment on above: Result Comment: PANFILO GEMENT OF PATIENT CARE PER NURSING PROTOCOL Performed By: #### L 501.080 ####[facility] [address] [place], [address] FINGERSTICK GLU 161 mg/dL High 74-106 [facility] Comment on above: Result Comment: PANFILO GEMENT OF PATIENT CARE PER NURSING PROTOCOL Performed By: #### L 501.080 ####[facility] [address] [place], [address] FINGERSTICK GLU 162 mg/dL High 74-106 [facility] Comment on above: Result Comment: PANFILO GEMENT OF PATIENT CARE PER NURSING PROTOCOL Performed By: #### L 501.080 ####[facility] [address] [place], [address] FINGERSTICK GLU 116 mg/dL High 74-106 [facility] Comment on above: Result Comment: PANFILO GEMENT OF PATIENT CARE PER NURSING PROTOCOL Performed By: #### L 501.080 ####[facility] [address] [place], [address] CBC W/Diff, Automatedon 08 Absolute Lymph 1.02 X10 3/uL Normal 0.83-4.51 [facility] Comment on above: Performed By: #### L 300.3900, L100.0100, L500.4050, L501.2300, L501.5200 ####[facility] [address] [place], [address] Absolute Neut 2.8 X10 3/uL Normal 2.0-7.7 [facility] Comment on above: Performed By: #### L 300.3900, L100.0100, L500.4050, L501.2300, L501.5200 ####[facility] [address] [place], [address] Basophils/100 WBC (Bld) 0.9 % Normal 0-1 [facility] Comment on above: Performed By: #### L 300.3900, L100.0100, L500.4050, L501.2300, L501.5200 ####[facility] [address] [place], [address] Eosinophils/100 WBC (Bld) 5.2 % High 0-5 [facility] Comment on above: Performed By: #### L 300.3900, L100.0100, L500.4050, L501.2300, L501.5200 ####[facility] [address] [place], [address] Erythrocyte distribution width (RBC) [Ratio] 12.2 % Normal 11.6-14.6 [facility] Comment on above: Performed By: #### L 300.3900, L100.0100, L500.4050, L501.2300, L501.5200 ####[facility] [address] [place], [address] Hematocrit (Bld) [Volume fraction] 36.4 % Low 37-47 [facility] Comment on above: Performed By: #### L 300.3900, L100.0100, L500.4050, L501.2300, L501.5200 ####[facility] [address] [place], [address] Hemoglobin (Bld) [Mass/Vol] 12.1 g/dL Normal 12.0-15.0 [facility] Comment on above: Performed By: #### L 300.3900, L100.0100, L500.4050, L501.2300, L501.5200 ####[facility] [address] [place], [address] IG% 0.200 Normal 0.0-0.9 [facility] Comment on above: Result Comment: IG% - Immature Granulocytes (promyelocytes, myelocytes andmetamyelocytes) > 1% indicates that a LEFT SHIFT is Present. Performed By: #### L 300.3900, L100.0100, L500.4050, L501.2300, L501.5200 ####[facility] [address] [place], [address] Lymphocytes/100 WBC (Bld) 22.9 % Normal 19-41 [facility] Comment on above: Performed By: #### L 300.3900, L100.0100, L500.4050, L501.2300, L501.5200 ####[facility] [address] [place], [address] MCH (RBC) [Entitic mass] 31.9 pg Normal 27.0-32.0 [facility] Comment on above: Performed By: #### L 300.3900, L100.0100, L500.4050, L501.2300, L501.5200 ####[facility] [address] [place], [address] MCHC (RBC) [Mass/Vol] 33.2 g/dL Normal 32-36 [facility] Comment on above: Performed By: #### L 300.3900, L100.0100, L500.4050, L501.2300, L501.5200 ####[facility] [address] [place], [address] MCV (RBC) [Entitic vol] 96.0 fL Normal 81-99 [facility] Comment on above: Performed By: #### L 300.3900, L100.0100, L500.4050, L501.2300, L501.5200 ####[facility] [address] [place], [address] Monocytes/100 WBC (Bld) 9.0 % Normal 0-10 [facility] Comment on above: Performed By: #### L 300.3900, L100.0100, L500.4050, L501.2300, L501.5200 ####[facility] [address] [place], [address] Neutrophils/100 WBC (Bld) 61.8 % Normal 47-70 [facility] Comment on above: Performed By: #### L 300.3900, L100.0100, L500.4050, L501.2300, L501.5200 ####[facility] [address] [place], [address] Nucleated RBC (Bld) [#/Vol] 0 10*3/uL Normal 0-5 [facility] Comment on above: Performed By: #### L 300.3900, L100.0100, L500.4050, L501.2300, L501.5200 ####[facility] [address] [place], [address] Platelet mean volume (Bld) [Entitic vol] 9.7 fL Normal 6.2-12.0 [facility] Comment on above: Performed By: #### L 300.3900, L100.0100, L500.4050, L501.2300, L501.5200 ####[facility] [address] [place], [address] Platelets (Bld) [#/Vol] 130 10*3/uL Low 150-450 [facility] Comment on above: Performed By: #### L 300.3900, L100.0100, L500.4050, L501.2300, L501.5200 ####[facility] [address] [place], [address] RBC (Bld) [#/Vol] 3.79 10*6/uL Low 4.2-5.4 [facility] Comment on above: Performed By: #### L 300.3900, L100.0100, L500.4050, L501.2300, L501.5200 ####[facility] [address] [place], [address] RDW SD 42.7 fl Normal 35.1-43.9 [facility] Comment on above: Performed By: #### L 300.3900, L100.0100, L500.4050, L501.2300, L501.5200 ####[facility] [address] [place], [address] WBC (Bld) [#/Vol] 4.5 10*3/uL Normal 4.4-11.0 [facility] Comment on above: Performed By: #### L 300.3900, L100.0100, L500.4050, L501.2300, L501.5200 ####[facility] [address] [place], [address] Comprehensive Metabolic Prof [facility] 06-17-2024 Albumin [Mass/Vol] 3.0 g/dL Low 3.2-5.0 [facility] Comment on above: Performed By: #### L 300.3900, L100.0100, L500.4050, L501.2300, L501.5200 ####[facility] [address] [place], [address] Albumin/Globulin [Mass ratio] 0.8 {ratio} Low 0.9-2.4 [facility] Comment on above: Performed By: #### L 300.3900, L100.0100, L500.4050, L501.2300, L501.5200 ####[facility] [address] [place], [address] ALK P 90 U/L Normal 45-117 [facility] Comment on above: Performed By: #### L 300.3900, L100.0100, L500.4050, L501.2300, L501.5200 ####[facility] [address] [place], [address] ALT [Catalytic activity/Vol] 13 U/L Normal 13-56 [facility] [facility] Comment on above: Performed By: #### L 300.3900, L100.0100, L500.4050, L501.2300, L501.5200 ####[facility] [address] [place], [address] AST [Catalytic activity/Vol] 21 U/L Normal 15-37 [facility] Comment on above: Performed By: #### L 300.3900, L100.0100, L500.4050, L501.2300, L501.5200 ####[facility] [address] [place], [address] Bilirubin [Mass/Vol] 0.90 mg/dL Normal 0.20-1.00 [facility] Comment on above: Result Comment: For patients on eltrombopag therapy, use of Dimension [place] TBIL is not recommended. Performed By: #### L 300.3900, L100.0100, L500.4050, L501.2300, L501.5200 ####[facility] [address] [place], [address] BUN/CRE 14.7 RATIO Normal 10-20 [facility] Comment on above: Performed By: #### L 300.3900, L100.0100, L500.4050, L501.2300, L501.5200 ####[facility] [address] [place], [address] CA,Total 8.8 mg/dL Normal 8.5-10.1 [facility] Comment on above: Performed By: #### L 300.3900, L100.0100, L500.4050, L501.2300, L501.5200 ####[facility] [address] [place], [address] Chloride [Moles/Vol] 105 mmol/L Normal 98-107 [facility] Comment on above: Performed By: #### L 300.3900, L100.0100, L500.4050, L501.2300, L501.5200 ####[facility] [address] [place], [address] CO2 [Moles/Vol] 25.0 mmol/L Normal 21.0-32.0 [facility] Comment on above: Performed By: #### L 300.3900, L100.0100, L500.4050, L501.2300, L501.5200 ####[facility] [address] [place], [address] Creatinine [Mass/Vol] 0.75 mg/dL Normal 0.55-1.02 [facility] Comment on above: Result Comment: The validity of the calculated GFR GFRAA in patients over70 years has not been determined. Clinical correlation isessential. Performed By: #### L 300.3900, L100.0100, L500.4050, L501.2300, L501.5200 ####[facility] [address] [place], [address] ECRCL 66.34 ml/min Normal [facility] Comment on above: Performed By: #### L 300.3900, L100.0100, L500.4050, L501.2300, L501.5200 ####[facility] [address] [place], [address] EST GFR - AA 96 mL/min Normal >60 [facility] Comment on above: Result Comment: Afri can [place] GFR Calc Performed By: #### L 300.3900, L100.0100, L500.4050, L501.2300, L501.5200 ####[facility] [address] [place], [address] GAP 10 Normal 5-15 [facility] Comment on above: Performed By: #### L 300.3900, L100.0100, L500.4050, L501.2300, L501.5200 ####[facility] [address] [place], [address] GFR/1.73 sq M.predicted among non-blacks MDRD (S/P/Bld) [Vol rate/Area] 80 mL/min/{1.73_m2} Normal >60 [facility] Comment on above: Result Comment: Non- GFR Calc Performed By: #### L 300.3900, L100.0100, L500.4050, L501.2300, L501.5200 ####[facility] [address] [place], [address] Globulin (S) [Mass/Vol] 3.7 g/dL Normal 2.2-4.2 [facility] Comment on above: Performed By: #### L 300.3900, L100.0100, L500.4050, L501.2300, L501.5200 ####[facility] [address] [place], [address] Glucose [Mass/Vol] 121 mg/dL High 74-106 [facility] Comment on above: Result Comment: Fast ing Glucose result from 100 to 125 mg/dLsuggests IMPAIRED HOMEOSTASIS per A.D.A. criteria. Performed By: #### L 300.3900, L100.0100, L500.4050, L501.2300, L501.5200 ####[facility] [address] [place], [address] Potassium [Moles/Vol] 3.6 mmol/L Normal 3.5-5.1 [facility] Comment on above: Performed By: #### L 300.3900, L100.0100, L500.4050, L501.2300, L501.5200 ####[facility] [address] [place], [address] Sodium [Moles/Vol] 140 mmol/L Normal 136-145 [facility] Comment on above: Performed By: #### L 300.3900, L100.0100, L500.4050, L501.2300, L501.5200 ####[facility] [address] [place], [address] T PROT 6.7 g/dL Normal 6.4-8.2 [facility] Comment on above: Performed By: #### L 300.3900, L100.0100, L500.4050, L501.2300, L501.5200 ####[facility] [address] [place], [address] Urea nitrogen [Mass/Vol] 11 mg/dL Normal 7-18 [facility] Comment on above: Performed By: #### L 300.3900, L100.0100, L500.4050, L501.2300, L501.5200 ####[facility] [address] [place], [address] Magnesiumon 06-17-2024 Magnesium [Mass/Vol] 1.4 mg/dL Low 1.6-2.6 [facility] Comment on above: Performed By: #### L 300.3900, L100.0100, L500.4050, L501.2300, L501.5200 ####[facility] [address] [place], [address] Phosphoruson 06-17-2024 Phosphate [Mass/Vol] 2.4 mg/dL Low 2.5-4.9 [facility] Comment on above: Performed By: #### L 300.3900, L100.0100, L500.4050, L501.2300, L501.5200 ####[facility] [address] [place], [address] Prothrombin Time w/INRon INR Coag (PPP) [Relative time] 1.4 {INR} Normal [facility] Comment on above: Performed By: #### L 300.3900, L100.0100, L500.4050, L501.2300, L501.5200 ####[facility] [address] [place], [address] PT Coag (PPP) [Time] 17.3 s High 11.7-14.9 [facility] Comment on above: Performed By: #### L 300.3900, L100.0100, L500.4050, L501.2300, L501.5200 ####[facility] [address] [place], [address] Urine Cultureon 06-17-2024 URC Culture exhibits no growth. Normal [facility] Comment on above: Performed By: #### M 100.2200 ####[facility] [address] [place], [address] BNP,B-Type NATRIURETIC PEPTI Tay 06-16-2024 Natriuretic peptide B (Bld) [Mass/Vol] 94.9 pg/mL Normal 0-100 [facility] Comment on above: Performed By: #### L 300.4310, L501.2450, L501.9520, L503.6620, L100.0100, L500.2500, L300.3900, L500.4050, L501.5425 ####[facility] [address] [place], [address] Basic Metabolic Profile (BMP )on 06-16-2024 BUN/CRE 14.1 RATIO Normal 10-20 [facility] Comment on above: Order Comment: 1Y Performed By: #### L 300.4310, L501.2450, L501.9520, L503.6620, L100.0100, L500.2500, L300.3900, L500.4050, L501.5425 ####[facility] [address] [place], [place], [phone] CA,Total 9.5 mg/dL Normal 8.5-10.1 [facility] Comment on above: Order Comment: 1Y Performed By: #### L 300.4310, L501.2450, L501.9520, L503.6620, L100.0100, L500.2500, L300.3900, L500.4050, L501.5425 ####[facility] [address] [place], [address] Chloride [Moles/Vol] 101 mmol/L Normal 98-107 [facility] Comment on above: Order Comment: 1Y Performed By: #### L 300.4310, L501.2450, L501.9520, L503.6620, L100.0100, L500.2500, L300.3900, L500.4050, L501.5425 ####[facility] [address] [place], [address] CO2 [Moles/Vol] 27.0 mmol/L Normal 21.0-32.0 [facility] Comment on above: Order Comment: 1Y Performed By: #### L 300.4310, L501.2450, L501.9520, L503.6620, L100.0100, L500.2500, L300.3900, L500.4050, L501.5425 ####[facility] [address] [place], [address] Creatinine [Mass/Vol] 0.78 mg/dL Normal 0.55-1.02 [facility] Comment on above: Order Comment: 1Y Result Comment: The validity of the calculated GFR GFRAA in patients over70 years has not been determined. Clinical correlation isessential. Performed By: #### L 300.4310, L501.2450, L501.9520, L503.6620, L100.0100, L500.2500, L300.3900, L500.4050, L501.5425 ####[facility] [address] [place], [address] EST GFR - AA 92 mL/min Normal >60 [facility] Comment on above: Order Comment: 1Y Result Comment: Afri can [place] GFR Calc Performed By: #### L 300.4310, L501.2450, L501.9520, L503.6620, L100.0100, L500.2500, L300.3900, L500.4050, L501.5425 ####[facility] [address] [place], [address] GAP 10 Normal 5-15 [facility] Comment on above: Order Comment: 1Y Performed By: #### L 300.4310, L501.2450, L501.9520, L503.6620, L100.0100, L500.2500, L300.3900, L500.4050, L501.5425 ####[facility] [address] [place], [place], [phone] GFR/1.73 sq M.predicted among non-blacks MDRD (S/P/Bld) [Vol rate/Area] 76 mL/min/{1.73_m2} Normal >60 [facility] Comment on above: Order Comment: 1Y Result Comment: Non- GFR Calc Performed By: #### L 300.4310, L501.2450, L501.9520, L503.6620, L100.0100, L500.2500, L300.3900, L500.4050, L501.5425 ####[facility] [address] [place], [phone] Glucose [Mass/Vol] 119 mg/dL High 74-106 [facility] Comment on above: Order Comment: 1Y Result Comment: Fast ing Glucose result from 100 to 125 mg/dLsuggests IMPAIRED HOMEOSTASIS per A.D.A. criteria. Performed By: #### L 300.4310, L501.2450, L501.9520, L503.6620, L100.0100, L500.2500, L300.3900, L500.4050, L501.5425 ####[facility] [address] [place], [address] Potassium [Moles/Vol] 3.7 mmol/L Normal 3.5-5.1 [facility] Comment on above: Order Comment: 1Y Performed By: #### L 300.4310, L501.2450, L501.9520, L503.6620, L100.0100, L500.2500, L300.3900, L500.4050, L501.5425 ####[facility] [address] [place], [address] Sodium [Moles/Vol] 138 mmol/L Normal 136-145 [facility] Comment on above: Order Comment: 1Y Performed By: #### L 300.4310, L501.2450, L501.9520, L503.6620, L100.0100, L500.2500, L300.3900, L500.4050, L501.5425 ####[facility] [address] [place], [address] Urea nitrogen [Mass/Vol] 11 mg/dL Normal 7-18 [facility] Comment on above: Order Comment: 1Y Performed By: #### L 300.4310, L501.2450, L501.9520, L503.6620, L100.0100, L500.2500, L300.3900, L500.4050, L501.5425 ####[facility] [address] [place], [address] Brain/Head without Contrasto n 06-16-2024 Brain/Head without Contrast Normal [facility] CBC W/Diff, Automatedon 05-27 Absolute Lymph 1.27 X10 3/uL Normal 0.83-4.51 [facility] Comment on above: Performed By: #### L 300.4310, L501.2450, L501.9520, L503.6620, L100.0100, L500.2500, L300.3900, L500.4050, L501.5425 ####[facility] [address] [place], [address] Absolute Neut 3.6 X10 3/uL Normal 2.0-7.7 [facility] Comment on above: Performed By: #### L 300.4310, L501.2450, L501.9520, L503.6620, L100.0100, L500.2500, L300.3900, L500.4050, L501.5425 ####[facility] [address] [place], [address] Basophils/100 WBC (Bld) 0.7 % Normal 0-1 [facility] Comment on above: Performed By: #### L 300.4310, L501.2450, L501.9520, L503.6620, L100.0100, L500.2500, L300.3900, L500.4050, L501.5425 ####[facility] [address] [place], [place], [phone] Eosinophils/100 WBC (Bld) 2.8 % Normal 0-5 [facility] Comment on above: Performed By: #### L 300.4310, L501.2450, L501.9520, L503.6620, L100.0100, L500.2500, L300.3900, L500.4050, L501.5425 ####[facility] [address] [place], [phone] Erythrocyte distribution width (RBC) [Ratio] 12.3 % Normal 11.6-14.6 [facility] Comment on above: Performed By: #### L 300.4310, L501.2450, L501.9520, L503.6620, L100.0100, L500.2500, L300.3900, L500.4050, L501.5425 ####[facility] [address] [place], [address]([phone]) Hematocrit (Bld) [Volume fraction] 40.3 % Normal 37-47 [facility] Comment on above: Performed By: #### L 300.4310, L501.2450, L501.9520, L503.6620, L100.0100, L500.2500, L300.3900, L500.4050, L501.5425 ####[facility] [address] [place], [phone]) Hemoglobin (Bld) [Mass/Vol] 13.1 g/dL Normal 12.0-15.0 [facility] Comment on above: Performed By: #### L 300.4310, L501.2450, L501.9520, L503.6620, L100.0100, L500.2500, L300.3900, L500.4050, L501.5425 ####[facility] [address] [place], [address] IG% 0.200 Normal 0.0-0.9 [facility] Comment on above: Result Comment: IG% - Immature Granulocytes (promyelocytes, myelocytes andmetamyelocytes) > 1% indicates that a LEFT SHIFT is Present. Performed By: #### L 300.4310, L501.2450, L501.9520, L503.6620, L100.0100, L500.2500, L300.3900, L500.4050, L501.5425 ####[facility] [address] [place], [address] Lymphocytes/100 WBC (Bld) 23.4 % Normal 19-41 [facility] Comment on above: Performed By: #### L 300.4310, L501.2450, L501.9520, L503.6620, L100.0100, L500.2500, L300.3900, L500.4050, L501.5425 ####[facility] [address] [place], [address] MCH (RBC) [Entitic mass] 31.3 pg Normal 27.0-32.0 [facility] Comment on above: Performed By: #### L 300.4310, L501.2450, L501.9520, L503.6620, L100.0100, L500.2500, L300.3900, L500.4050, L501.5425 ####[facility] [address] [place], [address] MCHC (RBC) [Mass/Vol] 32.5 g/dL Normal 32-36 [facility] Comment on above: Performed By: #### L 300.4310, L501.2450, L501.9520, L503.6620, L100.0100, L500.2500, L300.3900, L500.4050, L501.5425 ####[facility] [address] [place], [address] MCV (RBC) [Entitic vol] 96.4 fL Normal 81-99 [facility] Comment on above: Performed By: #### L 300.4310, L501.2450, L501.9520, L503.6620, L100.0100, L500.2500, L300.3900, L500.4050, L501.5425 ####[facility] [address] [place], [address] Monocytes/100 WBC (Bld) 7.0 % Normal 0-10 [facility] Comment on above: Performed By: #### L 300.4310, L501.2450, L501.9520, L503.6620, L100.0100, L500.2500, L300.3900, L500.4050, L501.5425 ####[facility] [address] [place], [address] Neutrophils/100 WBC (Bld) 65.9 % Normal 47-70 [facility] Comment on above: Performed By: #### L 300.4310, L501.2450, L501.9520, L503.6620, L100.0100, L500.2500, L300.3900, L500.4050, L501.5425 ####[facility] [address] [place], [address] Nucleated RBC (Bld) [#/Vol] 0 10*3/uL Normal 0-5 [facility] Comment on above: Performed By: #### L 300.4310, L501.2450, L501.9520, L503.6620, L100.0100, L500.2500, L300.3900, L500.4050, L501.5425 ####[facility] [address] [place], [address] Platelet mean volume (Bld) [Entitic vol] 9.6 fL Normal 6.2-12.0 [facility] Comment on above: Performed By: #### L 300.4310, L501.2450, L501.9520, L503.6620, L100.0100, L500.2500, L300.3900, L500.4050, L501.5425 ####[facility] [address] [place], [address] Platelets (Bld) [#/Vol] 157 10*3/uL Normal 150-450 [facility] Comment on above: Performed By: #### L 300.4310, L501.2450, L501.9520, L503.6620, L100.0100, L500.2500, L300.3900, L500.4050, L501.5425 ####[facility] [address] [place], [address] RBC (Bld) [#/Vol] 4.18 10*6/uL Low 4.2-5.4 [facility] Comment on above: Performed By: #### L 300.4310, L501.2450, L501.9520, L503.6620, L100.0100, L500.2500, L300.3900, L500.4050, L501.5425 ####[facility] [address] [place], [address] RDW SD 43.8 fl Normal 35.1-43.9 [facility] Comment on above: Performed By: #### L 300.4310, L501.2450, L501.9520, L503.6620, L100.0100, L500.2500, L300.3900, L500.4050, L501.5425 ####[facility] [address] [place], [address] WBC (Bld) [#/Vol] 5.4 10*3/uL Normal 4.4-11.0 [facility] Comment on above: Performed By: #### L 300.4310, L501.2450, L501.9520, L503.6620, L100.0100, L500.2500, L300.3900, L500.4050, L501.5425 ####[facility] [address] [place], [address] Absolute Neut Normal 2.0-7.7 [facility] Comment on above: Result Comment: DUPL ICATE ORDER RAN UNDER H262 Performed By: #### L 500.4050, L100.0100 ####[facility] [address] [place], [address] HCT Normal 37-47 [facility] Comment on above: Result Comment: DUPL ICATE ORDER RAN UNDER H262 Performed By: #### L 500.4050, L100.0100 ####[facility] [address] [place], [address] HGB Normal 12.0-15.0 [facility] Comment on above: Result Comment: DUPL ICATE ORDER RAN UNDER H262 Performed By: #### L 500.4050, L100.0100 ####[facility] [address] [place], [address] MCH Normal 27.0-32.0 [facility] Comment on above: Result Comment: DUPL ICATE ORDER RAN UNDER H262 Performed By: #### L 500.4050, L100.0100 ####[facility] [address] [place], [address] MCHC Normal 32-36 [facility] Comment on above: Result Comment: DUPL ICATE ORDER RAN UNDER H262 Performed By: #### L 500.4050, L100.0100 ####[facility] [address] [place], [address] MCV Normal 81-99 [facility] Comment on above: Result Comment: DUPL ICATE ORDER RAN UNDER H262 Performed By: #### L 500.4050, L100.0100 ####[facility] [address] [place], [address] NEUT% Normal 47-70 [facility] Comment on above: Result Comment: DUPL ICATE ORDER RAN UNDER H262 Performed By: #### L 500.4050, L100.0100 ####[facility] [address] [place], [address] PLT Normal 150-450 [facility] Comment on above: Result Comment: DUPL ICATE ORDER RAN UNDER H262 Performed By: #### L 500.4050, L100.0100 ####[facility] [address] [place], [address] RBC Normal 4.2-5.4 [facility] Comment on above: Result Comment: DUPL ICATE ORDER RAN UNDER H262 Performed By: #### L 500.4050, L100.0100 ####[facility] [address] [place], [address] RDW CV Normal 11.6-14.6 [facility] Comment on above: Result Comment: DUPL ICATE ORDER RAN UNDER H262 Performed By: #### L 500.4050, L100.0100 ####[facility] [address] [place], [address] RDW SD Normal 35.1-43.9 [facility] Comment on above: Result Comment: DUPL ICATE ORDER RAN UNDER H262 Performed By: #### L 500.4050, L100.0100 ####[facility] [address] [place], [address] WBC Normal 4.4-11.0 [facility] Comment on above: Result Comment: DUPL ICATE ORDER RAN UNDER H262 Performed By: #### L 500.4050, L100.0100 ####[facility] [address] [place], [address] Chest PA and Lateralon 06-16 Chest PA and Lateral Normal [facility] Comprehensive Metabolic Prof ilon 06-16-2024 Albumin [Mass/Vol] 3.6 g/dL Normal 3.2-5.0 [facility] Comment on above: Order Comment: DR.BE SHIN ORDERED CMP LIPASE @1712 UNDER C345, ADDED TO THISSPECIMEN [id number] Performed By: #### L 300.4310, L501.2450, L501.9520, L503.6620, L100.0100, L500.2500, L300.3900, L500.4050, L501.5425 ####[facility] [address] [place], [address] Albumin/Globulin [Mass ratio] 0.8 {ratio} Low 0.9-2.4 [facility] Comment on above: Order Comment: DR.BE SHIN ORDERED CMP LIPASE @1712 UNDER C345, ADDED TO THISSPECIMEN [id number] Performed By: #### L 300.4310, L501.2450, L501.9520, L503.6620, L100.0100, L500.2500, L300.3900, L500.4050, L501.5425 ####[facility] [address] [place], [place], [id number] ALK P 104 U/L Normal 45-117 [facility] Comment on above: Order Comment: DR.BE SHIN ORDERED CMP LIPASE @1712 UNDER C345, ADDED TO THISSPECIMEN [id number] Performed By: #### L 300.4310, L501.2450, L501.9520, L503.6620, L100.0100, L500.2500, L300.3900, L500.4050, L501.5425 ####[facility] [address] [place], [place], [address] ALT [Catalytic activity/Vol] 18 U/L Normal 13-56 [facility] Comment on above: Order Comment: DR.BE SHIN ORDERED CMP LIPASE @1712 UNDER C345, ADDED TO THISSPECIMEN [id number] Performed By: #### L 300.4310, L501.2450, L501.9520, L503.6620, L100.0100, L500.2500, L300.3900, L500.4050, L501.5425 ####[facility] [address] [place], [address] AST [Catalytic activity/Vol] 26 U/L Normal 15-37 [facility] Comment on above: Order Comment: DR.BE SHIN ORDERED CMP LIPASE @1712 UNDER C345, ADDED TO THISSPECIMEN [id number] Performed By: #### L 300.4310, L501.2450, L501.9520, L503.6620, L100.0100, L500.2500, L300.3900, L500.4050, L501.5425 ####[facility] [address] [place], [place], [phone](493) Bilirubin [Mass/Vol] 1.40 mg/dL High 0.20-1.00 [facility] Comment on above: Order Comment: DR.BE SHIN ORDERED CMP LIPASE @1712 UNDER C345, ADDED TO THISSPECIMEN [id number] Result Comment: For patients on eltrombopag therapy, use of Dimension [place] TBIL is not recommended. Performed By: #### L 300.4310, L501.2450, L501.9520, L503.6620, L100.0100, L500.2500, L300.3900, L500.4050, L501.5425 ####[facility] [address] [place], [place], [phone] Globulin (S) [Mass/Vol] 4.3 g/dL High 2.2-4.2 [facility] Comment on above: Order Comment: DR.BE SHIN ORDERED CMP LIPASE @1712 UNDER C345, ADDED TO THISSPECIMEN [id number] Performed By: #### L 300.4310, L501.2450, L501.9520, L503.6620, L100.0100, L500.2500, L300.3900, L500.4050, L501.5425 ####[facility] [address] [place], [address] T PROT 7.9 g/dL Normal 6.4-8.2 [facility] Comment on above: Order Comment: DR.BE SHIN ORDERED CMP LIPASE @1712 UNDER C345, ADDED TO THISSPECIMEN [id number] Performed By: #### L 300.4310, L501.2450, L501.9520, L503.6620, L100.0100, L500.2500, L300.3900, L500.4050, L501.5425 ####[facility] [address] [place], [address] ALB Normal 3.2-5.0 [facility] Comment on above: Result Comment: ADDE D TO SPECIMEN C341 Performed By: #### L 500.4050, L100.0100 ####[facility] [address] [place], [address] ALK P Normal 45-117 [facility] Comment on above: Result Comment: ADDE D TO SPECIMEN C341 Performed By: #### L 500.4050, L100.0100 ####[facility] [address] [place], [address] ALT Normal 13-56 [facility] Comment on above: Result Comment: ADDE D TO SPECIMEN C341 Performed By: #### L 500.4050, L100.0100 ####[facility] [address] [place], [address] AST Normal 15-37 [facility] Comment on above: Result Comment: ADDE D TO SPECIMEN C341 Performed By: #### L 500.4050, L100.0100 ####[facility] [address], [address] BUN Normal 7-18 [facility] Comment on above: Result Comment: ADDE D TO SPECIMEN C341 Performed By: #### L 500.4050, L100.0100 ####[facility] [address] [place], [address] BUN/CRE Normal 10-20 [facility] Comment on above: Result Comment: ADDE D TO SPECIMEN C341 Performed By: #### L 500.4050, L100.0100 ####[facility] [address] [place], [address] CA,Total Normal 8.5-10.1 [facility] Comment on above: Result Comment: ADDE D TO SPECIMEN C341 Performed By: #### L 500.4050, L100.0100 ####[facility] [address] [place], [address] CL Normal 98-107 [facility] Comment on above: Result Comment: ADDE D TO SPECIMEN C341 Performed By: #### L 500.4050, L100.0100 ####[facility] [address] [place], [address] CO2 Normal 21.0-32.0 [facility] Comment on above: Result Comment: ADDE D TO SPECIMEN C341 Performed By: #### L 500.4050, L100.0100 ####[facility] [address] [place], [address] CREAT,SERUM Normal 0.55-1.02 [facility] Comment on above: Result Comment: ADDE D TO SPECIMEN C341 Performed By: #### L 500.4050, L100.0100 ####[facility] [address] [place], [address] EST GFR Normal >60 [facility] Comment on above: Result Comment: ADDE D TO SPECIMEN C341 Performed By: #### L 500.4050, L100.0100 ####[facility] [address] [place], [address] EST GFR - AA Normal >60 [facility] Comment on above: Result Comment: ADDE D TO SPECIMEN C341 Performed By: #### L 500.4050, L100.0100 ####[facility] [address] [place], [address] GAP Normal 5-15 [facility] Comment on above: Result Comment: ADDE D TO SPECIMEN C341 Performed By: #### L 500.4050, L100.0100 ####[facility] [address] [place], [address] GLU Normal 74-106 [facility] Comment on above: Result Comment: ADDE D TO SPECIMEN C341 Performed By: #### L 500.4050, L100.0100 ####[facility] [address] [place], [address] Potassium Normal 3.5-5.1 [facility] Comment on above: Result Comment: ADDE D TO SPECIMEN C341 Performed By: #### L 500.4050, L100.0100 ####[facility] [address] [place], [address] T BILI Normal 0.20-1.00 [facility] Comment on above: Result Comment: ADDE D TO SPECIMEN C341 Performed By: #### L 500.4050, L100.0100 ####[facility] [address] [place], [address] T PROT Normal 6.4-8.2 [facility] Comment on above: Result Comment: ADDE D TO SPECIMEN C341 Performed By: #### L 500.4050, L100.0100 ####[facility] [address] [place], [address] Comprehensive Metabolic Profil Normal 136-145 [facility] Comment on above: Result Comment: ADDE D TO SPECIMEN C341 Performed By: #### L 500.4050, L100.0100 ####[facility] [address] [place], [address] Emergency Department Summary on 06-16-2024 Emergency Department Summary Normal [facility] H AND P Exam - Hospitaliston 06-16-2024 H&P Exam - Hospitalist Normal [facility] L501.4020on 06-16-2024 TROPONIN-I HS 15 pg/mL Normal 3.0-54.0 [facility] Comment on above: Result Comment: Sabine bonilla Note: New Test Units and Gender Specific Reference Ranges. For more information see Policy Stat Procedure [place] High Sensitivity Troponin (TNIH) and attachments. Performed By: #### L 501.4020 ####[facility] [address] [place], [address] L501.5425on 06-16-2024 TROPONIN-I HS 15 pg/mL Normal 3.0-54.0 [facility] Comment on above: Order Comment: 1Y Result Comment: Sabine bonilla Note: New Test Units and Gender Specific Reference Ranges. For more information see Policy Stat Procedure [place] High Sensitivity Troponin (TNIH) and attachments. Performed By: #### L 300.4310, L501.2450, L501.9520, L503.6620, L100.0100, L500.2500, L300.3900, L500.4050, L501.5425 ####[facility] [address] [place], [address] Lipaseon 06-16-2024 Lipase [Catalytic activity/Vol] U/L Low 13-75 [facility] Comment on above: Order Comment: DR.BE SHIN ORDERED CMP LIPASE @1712 UNDER C345, ADDED TO THISSPECIMEN [id number] Result Comment: Sabine bonilla note:LIPASE revised reference range effective 23.New Lipase methodology. Expected to produce lower valuesthan the previous assay method.NEW Reference Range: 13 - 75 U/L Performed By: #### L 300.4310, L501.2450, L501.9520, L503.6620, L100.0100, L500.2500, L300.3900, L500.4050, L501.5425 ####[facility] [address] [place], [address] Partial Thromboplast Timeon 06-16-2024 aPTT Coag (Bld) [Time] 30.6 s Normal 24.1-36.2 [facility] Comment on above: Performed By: #### L 300.4310, L501.2450, L501.9520, L503.6620, L100.0100, L500.2500, L300.3900, L500.4050, L501.5425 ####[facility] [address] [place], [address] Prothrombin Time w/INRon INR Normal [facility] Comment on above: Result Comment: Canc elled via OM: Duplicate Order Performed By: #### L 300.3900 ####[facility] [address] [place], [address] PROTIME Normal 11.7-14.9 [facility] Comment on above: Result Comment: Canc elled via OM: Duplicate Order Performed By: #### L 300.3900 ####[facility] [address] [place], [address] INR Coag (PPP) [Relative time] 1.4 {INR} Normal [facility] Comment on above: Performed By: #### L 300.4310, L501.2450, L501.9520, L503.6620, L100.0100, L500.2500, L300.3900, L500.4050, L501.5425 ####[facility] [address] [place], [address] PT Coag (PPP) [Time] 16.8 s High 11.7-14.9 [facility] Comment on above: Performed By: #### L 300.4310, L501.2450, L501.9520, L503.6620, L100.0100, L500.2500, L300.3900, L500.4050, L501.5425 ####[facility] [address] [place], [address] Thyroid Stim Hormone (TSH)on 06-16-2024 TSH 2.110 uIU/mL Normal 0.358-3.740 [facility] Comment on above: Order Comment: 1Y Performed By: #### L 300.4310, L501.2450, L501.9520, L503.6620, L100.0100, L500.2500, L300.3900, L500.4050, L501.5425 ####[facility] [address] [place], [address] Urinalysis, Completeon 06-16 BACTERIA 1+ /hpf Normal None Seen [facility] Comment on above: Order Comment: CLEAN CATCH Performed By: #### L 400.0001 ####[facility] [address] [place], [address] EPI,SQUAMOUS 5-10 SEEN Normal 5-10 [facility] Comment on above: Order Comment: CLEAN CATCH Performed By: #### L 400.0001 ####[facility] [address] [place], [address] WBC 5-10 SEEN Normal 0-5 [facility] Comment on above: Order Comment: CLEAN CATCH Performed By: #### L 400.0001 ####[facility] [address] [place], [address] Mucus Ql (Urine sed) 0 SEEN Normal [facility] Comment on above: Order Comment: CLEAN CATCH Performed By: #### L 400.0001 ####[facility] [address] [place], [address] RBC 0 SEEN Normal 0-5 [facility] Comment on above: Order Comment: CLEAN CATCH Performed By: #### L 400.0001 ####[facility] [address] [place], [address] Basic Metabolic Profile (BMP )on 06-12-2024 BUN/CRE 16.8 RATIO Normal 10-20 [facility] Comment on above: Performed By: #### L 100.0100, L500.2500, L300.3900 ####[facility] [address] [place], [address] CA,Total 9.1 mg/dL Normal 8.5-10.1 [facility] Comment on above: Performed By: #### L 100.0100, L500.2500, L300.3900 ####[facility] [address] [place], [address] Chloride [Moles/Vol] 105 mmol/L Normal 98-107 [facility] Comment on above: Performed By: #### L 100.0100, L500.2500, L300.3900 ####[facility] [address] [place], [address] CO2 [Moles/Vol] 26.0 mmol/L Normal 21.0-32.0 [facility] Comment on above: Performed By: #### L 100.0100, L500.2500, L300.3900 ####[facility] [address] [place], [address] Creatinine [Mass/Vol] 0.96 mg/dL Normal 0.55-1.02 [facility] Comment on above: Result Comment: The validity of the calculated GFR GFRAA in patients over70 years has not been determined. Clinical correlation isessential. Performed By: #### L 100.0100, L500.2500, L300.3900 ####[facility] [address] [place], [address] ECRCL 56.42 ml/min Normal [facility] Comment on above: Performed By: #### L 100.0100, L500.2500, L300.3900 ####[facility] [address] [place], [address] EST GFR - AA 73 mL/min Normal >60 [facility] Comment on above: Result Comment: Afri can [place] GFR Calc Performed By: #### L 100.0100, L500.2500, L300.3900 ####[facility] [address] [place], [address] GAP 8 Normal 5-15 [facility] Comment on above: Performed By: #### L 100.0100, L500.2500, L300.3900 ####[facility] [address] [place], [address] GFR/1.73 sq M.predicted among non-blacks MDRD (S/P/Bld) [Vol rate/Area] 60 mL/min/{1.73_m2} Normal >60 [facility] Comment on above: Result Comment: Non- GFR Calc Performed By: #### L 100.0100, L500.2500, L300.3900 ####[facility] [address] [place], [address] Glucose [Mass/Vol] 113 mg/dL High 74-106 [facility] Comment on above: Result Comment: Fast ing Glucose result from 100 to 125 mg/dLsuggests IMPAIRED HOMEOSTASIS per A.D.A. criteria. Performed By: #### L 100.0100, L500.2500, L300.3900 ####[facility] [address] [place], [address] Potassium [Moles/Vol] 3.4 mmol/L Low 3.5-5.1 [facility] Comment on above: Performed By: #### L 100.0100, L500.2500, L300.3900 ####[facility] [address] [place], [address] Sodium [Moles/Vol] 139 mmol/L Normal 136-145 [facility] Comment on above: Performed By: #### L 100.0100, L500.2500, L300.3900 ####[facility] [address] [place], [address] Urea nitrogen [Mass/Vol] 16 mg/dL Normal 7-18 [facility] Comment on above: Performed By: #### L 100.0100, L500.2500, L300.3900 ####[facility] [address] [place], [address] CBC W/Diff, Automatedon 05-26 Absolute Lymph 1.24 X10 3/uL Normal 0.83-4.51 [facility] Comment on above: Performed By: #### L 100.0100, L500.2500, L300.3900 ####[facility] [address] [place], [address] Absolute Neut 3.1 X10 3/uL Normal 2.0-7.7 [facility] Comment on above: Performed By: #### L 100.0100, L500.2500, L300.3900 ####[facility] [address] [place], [address] Basophils/100 WBC (Bld) 0.8 % Normal 0-1 [facility] Comment on above: Performed By: #### L 100.0100, L500.2500, L300.3900 ####[facility] [address] [place], [address] Eosinophils/100 WBC (Bld) 5.0 % Normal 0-5 [facility] Comment on above: Performed By: #### L 100.0100, L500.2500, L300.3900 ####[facility] [address] [place], [address] Erythrocyte distribution width (RBC) [Ratio] 12.3 % Normal 11.6-14.6 [facility] Comment on above: Performed By: #### L 100.0100, L500.2500, L300.3900 ####[facility] [address] [place], [address] Hematocrit (Bld) [Volume fraction] 37.4 % Normal 37-47 [facility] Comment on above: Performed By: #### L 100.0100, L500.2500, L300.3900 ####[facility] [address] [place], [address] Hemoglobin (Bld) [Mass/Vol] 12.4 g/dL Normal 12.0-15.0 [facility] Comment on above: Performed By: #### L 100.0100, L500.2500, L300.3900 ####[facility] [address] [place], [address] IG% 0.400 Normal 0.0-0.9 [facility] Comment on above: Result Comment: IG% - Immature Granulocytes (promyelocytes, myelocytes andmetamyelocytes) > 1% indicates that a LEFT SHIFT is Present. Performed By: #### L 100.0100, L500.2500, L300.3900 ####[facility] [address] [place], [address] Lymphocytes/100 WBC (Bld) 23.7 % Normal 19-41 [facility] Comment on above: Performed By: #### L 100.0100, L500.2500, L300.3900 ####[facility] [address] [place], [address] MCH (RBC) [Entitic mass] 32.1 pg High 27.0-32.0 [facility] Comment on above: Performed By: #### L 100.0100, L500.2500, L300.3900 ####[facility] [address] [place], [address] MCHC (RBC) [Mass/Vol] 33.2 g/dL Normal 32-36 [facility] Comment on above: Performed By: #### L 100.0100, L500.2500, L300.3900 ####[facility] [address] [place], [address] MCV (RBC) [Entitic vol] 96.9 fL Normal 81-99 [facility] Comment on above: Performed By: #### L 100.0100, L500.2500, L300.3900 ####[facility] [address] [place], [address] Monocytes/100 WBC (Bld) 10.1 % High 0-10 [facility] Comment on above: Performed By: #### L 100.0100, L500.2500, L300.3900 ####[facility] [address] [place], [address] Neutrophils/100 WBC (Bld) 60.0 % Normal 47-70 [facility] Comment on above: Performed By: #### L 100.0100, L500.2500, L300.3900 ####[facility] [address] [place], [address] Nucleated RBC (Bld) [#/Vol] 0 10*3/uL Normal 0-5 [facility] Comment on above: Performed By: #### L 100.0100, L500.2500, L300.3900 ####[facility] [address] [place], [address] Platelet mean volume (Bld) [Entitic vol] 9.7 fL Normal 6.2-12.0 [facility] Comment on above: Performed By: #### L 100.0100, L500.2500, L300.3900 ####[facility] [address] [place], [address] Platelets (Bld) [#/Vol] 140 10*3/uL Low 150-450 [facility] Comment on above: Performed By: #### L 100.0100, L500.2500, L300.3900 ####[facility] [address] [place], [address] RBC (Bld) [#/Vol] 3.86 10*6/uL Low 4.2-5.4 [facility] Comment on above: Performed By: #### L 100.0100, L500.2500, L300.3900 ####[facility] [address] [place], [address] RDW SD 43.8 fl Normal 35.1-43.9 [facility] Comment on above: Performed By: #### L 100.0100, L500.2500, L300.3900 ####[facility] [address] [place], [address] WBC (Bld) [#/Vol] 5.2 10*3/uL Normal 4.4-11.0 [facility] Comment on above: Performed By: #### L 100.0100, L500.2500, L300.3900 ####[facility] [address] [place], [address] Emergency Department Summary on 06-12-2024 Emergency Department Summary Normal [facility] Prothrombin Time w/INRon INR Coag (PPP) [Relative time] 2.3 {INR} Normal [facility] Comment on above: Performed By: #### L 100.0100, L500.2500, L300.3900 ####[facility] [address] [place], [address] PT Coag (PPP) [Time] 25.5 s High 11.7-14.9 [facility] Comment on above: Performed By: #### L 100.0100, L500.2500, L300.3900 ####[facility] [address] [place], [address] Spine Lumbar without Contras ton 06-12-2024 Spine Lumbar without Contrast Normal [facility] Spine Thoracic without Contr ason 06-12-2024 Spine Thoracic without Contras Normal [facility] Urinalysis, Completeon 06-12 EPI,SQUAMOUS 0-5 SEEN Normal 5-10 [facility] Comment on above: Order Comment: COLLE CTOR TO SPECIFY Performed By: #### L 400.0001 ####[facility] [address] [place], [address] WBC 0-5 SEEN Normal 0-5 [facility] Comment on above: Order Comment: CHAYA CTOR TO SPECIFY Performed By: #### L 400.0001 ####[facility] [address] [place], [address] BACTERIA 0 SEEN Normal None Seen [facility] Comment on above: Order Comment: COLLE CTOR TO SPECIFY Performed By: #### L 400.0001 ####[facility] [address] [place], [address] Mucus Ql (Urine sed) 0 SEEN Normal [facility] Comment on above: Order Comment: COLLE CTOR TO SPECIFY Performed By: #### L 400.0001 ####[facility] [address] [place], [address] RBC 0 SEEN Normal 0-5 [facility] Comment on above: Order Comment: COLLE CTOR TO SPECIFY Performed By: #### L 400.0001 ####[facility] [address] [place], [address] Basic Metabolic Profile (BMP )on 06-10-2024 BUN/CRE 14.8 RATIO Normal 10-20 [facility] Comment on above: Order Comment: For P PM generator change 07/04/24 Performed By: #### L 400.0001, L100.0500, L300.3900, L500.2500 ####[facility] [address] [place], [address] CA,Total 9.3 mg/dL Normal 8.5-10.1 [facility] Comment on above: Order Comment: For P PM generator change 07/04/24 Performed By: #### L 400.0001, L100.0500, L300.3900, L500.2500 ####[facility] [address] [place], [address] Chloride [Moles/Vol] 106 mmol/L Normal 98-107 [facility] Comment on above: Order Comment: For P PM generator change 07/04/24 Performed By: #### L 400.0001, L100.0500, L300.3900, L500.2500 ####[facility] [address] [place], [address] CO2 [Moles/Vol] 25.0 mmol/L Normal 21.0-32.0 [facility] Comment on above: Order Comment: For P PM generator change 07/04/24 Performed By: #### L 400.0001, L100.0500, L300.3900, L500.2500 ####[facility] [address] [place], [address] Creatinine [Mass/Vol] 0.95 mg/dL Normal 0.55-1.02 [facility] Comment on above: Order Comment: For P PM generator change 07/04/24 Result Comment: The validity of the calculated GFR GFRAA in patients over70 years has not been determined. Clinical correlation isessential. Performed By: #### L 400.0001, L100.0500, L300.3900, L500.2500 ####[facility] [address] [place], [address] EST GFR - AA 74 mL/min Normal >60 [facility] Comment on above: Order Comment: For P PM generator change 07/04/24 Result Comment: Afri can [place] GFR Calc Performed By: #### L 400.0001, L100.0500, L300.3900, L500.2500 ####[facility] [address] [place], [address] GAP 8 Normal 5-15 [facility] Comment on above: Order Comment: For P PM generator change 07/04/24 Performed By: #### L 400.0001, L100.0500, L300.3900, L500.2500 ####[facility] [address] [place], [address] GFR/1.73 sq M.predicted among non-blacks MDRD (S/P/Bld) [Vol rate/Area] 61 mL/min/{1.73_m2} Normal >60 [facility] Comment on above: Order Comment: For P PM generator change 07/04/24 Result Comment: Non- GFR Calc Performed By: #### L 400.0001, L100.0500, L300.3900, L500.2500 ####[facility] [address] [place], [address] Glucose [Mass/Vol] 89 mg/dL Normal 74-106 [facility] Comment on above: Order Comment: For P PM generator change 07/04/24 Performed By: #### L 400.0001, L100.0500, L300.3900, L500.2500 ####[facility] [address] [place], [address] Potassium [Moles/Vol] 3.6 mmol/L Normal 3.5-5.1 [facility] Comment on above: Order Comment: For P PM generator change 07/04/24 Performed By: #### L 400.0001, L100.0500, L300.3900, L500.2500 ####[facility] [address] [place], [address] Sodium [Moles/Vol] 139 mmol/L Normal 136-145 [facility] Comment on above: Order Comment: For P PM generator change 07/04/24 Performed By: #### L 400.0001, L100.0500, L300.3900, L500.2500 ####[facility] [address] [place], [address] Urea nitrogen [Mass/Vol] 14 mg/dL Normal 7-18 [facility] Comment on above: Order Comment: For P PM generator change 07/04/24 Performed By: #### L 400.0001, L100.0500, L300.3900, L500.2500 ####[facility] [address] [place], [address] CBC-Complete Blood Cnt No Di ffon 06-10-2024 Erythrocyte distribution width (RBC) [Ratio] 12.3 % Normal 11.6-14.6 [facility] Comment on above: Order Comment: Comme nts: For PPM generator change Performed By: #### L 400.0001, L100.0500, L300.3900, L500.2500 ####[facility] [address] [place], [address] Hematocrit (Bld) [Volume fraction] 39.4 % Normal 37-47 [facility] Comment on above: Order Comment: Comme nts: For PPM generator change Performed By: #### L 400.0001, L100.0500, L300.3900, L500.2500 ####[facility] [address] [place], [address] Hemoglobin (Bld) [Mass/Vol] 12.9 g/dL Normal 12.0-15.0 [facility] Comment on above: Order Comment: Comme nts: For PPM generator change Performed By: #### L 400.0001, L100.0500, L300.3900, L500.2500 ####[facility] [address] [place], [address] MCH (RBC) [Entitic mass] 31.9 pg Normal 27.0-32.0 [facility] Comment on above: Order Comment: Comme nts: For PPM generator change Performed By: #### L 400.0001, L100.0500, L300.3900, L500.2500 ####[facility] [address] [place], [address] MCHC (RBC) [Mass/Vol] 32.7 g/dL Normal 32-36 [facility] Comment on above: Order Comment: Comme nts: For PPM generator change Performed By: #### L 400.0001, L100.0500, L300.3900, L500.2500 ####[facility] [address] [place], [address] MCV (RBC) [Entitic vol] 97.5 fL Normal 81-99 [facility] Comment on above: Order Comment: Comme nts: For PPM generator change Performed By: #### L 400.0001, L100.0500, L300.3900, L500.2500 ####[facility] [address] [place], [address] Platelet mean volume (Bld) [Entitic vol] 10.1 fL Normal 6.2-12.0 [facility] Comment on above: Order Comment: Comme nts: For PPM generator change Performed By: #### L 400.0001, L100.0500, L300.3900, L500.2500 ####[facility] [address] [place], [address] Platelets (Bld) [#/Vol] 134 10*3/uL Low 150-450 [facility] Comment on above: Order Comment: Comme nts: For PPM generator change Performed By: #### L 400.0001, L100.0500, L300.3900, L500.2500 ####[facility] [address] [place], [address] RBC (Bld) [#/Vol] 4.04 10*6/uL Low 4.2-5.4 [facility] Comment on above: Order Comment: Comme nts: For PPM generator change Performed By: #### L 400.0001, L100.0500, L300.3900, L500.2500 ####[facility] [address] [place], [address] RDW SD 43.9 fl Normal 35.1-43.9 [facility] Comment on above: Order Comment: Comme nts: For PPM generator change Performed By: #### L 400.0001, L100.0500, L300.3900, L500.2500 ####[facility] [address] [place], [address] WBC (Bld) [#/Vol] 5.2 10*3/uL Normal 4.4-11.0 [facility] Comment on above: Order Comment: Comme nts: For PPM generator change Performed By: #### L 400.0001, L100.0500, L300.3900, L500.2500 ####[facility] [address] [place], [address] [facility] KEIS[facility] ([id number]) 1945 F Date Time Provider Department 06/10/24 JOON LOPEZ INTMWS During your visit today, we recorded the following information about you: Yuko Rogers, RN 06/10/2024 8:58 AM Signed Patient's daughter Brooke calls and states that royal's INR has been high. Today's INR 5.2 which is managed by [facility]. Brooke concerned with the amount [...] daughters work number. Please review and advise, VALD Birch Liza D, MD 06/10/2024 9:17 AM [...] rx for the oxycodone to MILES Thomas. Joon Lopez MD 06/10/2024 1:14 PM [...] Fully Assessed Reason for Visit: Patient Question [9926] Visit Diagnoses:Rib pain on right side [R07.81] [...] hours as needed for wheezing/shortness of breath. 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 Normal [facility] Cardiology Visit Reporton Cardiology Visit Report Normal [facility] Chest PA and Lateralon 06-10 Chest PA and Lateral Normal [facility] Pacemaker Checkon 06-10-2024 Pacemaker Check Normal [facility] Prothrombin Time w/INRon INR Coag (PPP) [Relative time] 3.7 {INR} Normal [facility] Comment on above: Order Comment: Comme nts: For PPM generator change Performed By: #### L 400.0001, L100.0500, L300.3900, L500.2500 ####[facility] [address] [place], [place], [id number] PT Coag (PPP) [Time] 36.2 s High 11.7-14.9 [facility] Comment on above: Order Comment: Comme nts: For PPM generator change Performed By: #### L 400.0001, L100.0500, L300.3900, L500.2500 ####[facility] [address] [place], [place], [id number] Urinalysis, Completeon 06-10 BACTERIA 3+ /hpf Normal None Seen [facility] Comment on above: Order Comment: For P PM generator change 07/04/24COLLECTOR TO SPECIFY Performed By: #### L 400.0001, L100.0500, L300.3900, L500.2500 ####[facility] [address] [place], [place], [id number] CAST,HYALINE 0-5 SEEN Normal 0-5 [facility] Comment on above: Order Comment: For P PM generator change 07/04/24COLLECTOR TO SPECIFY Performed By: #### L 400.0001, L100.0500, L300.3900, L500.2500 ####[facility] [address] [place], [address] EPI,SQUAMOUS 0-5 SEEN Normal 5-10 [facility] Comment on above: Order Comment: For P PM generator change 07/04/24COLLECTOR TO SPECIFY Performed By: #### L 400.0001, L100.0500, L300.3900, L500.2500 ####[facility] [address] [place], [address] WBC 0-5 SEEN Normal 0-5 [facility] Comment on above: Order Comment: For P PM generator change 07/04/24COLLECTOR TO SPECIFY Performed By: #### L 400.0001, L100.0500, L300.3900, L500.2500 ####[facility] [address] [place], [address] Mucus Ql (Urine sed) 0 SEEN Normal [facility] Comment on above: Order Comment: For P PM generator change 07/04/24COLLECTOR TO SPECIFY Performed By: #### L 400.0001, L100.0500, L300.3900, L500.2500 ####[facility] [address] [place], [address] RBC 0 SEEN Normal 0-5 [facility] Comment on above: Order Comment: For P PM generator change 07/04/24COLLECTOR TO SPECIFY Performed By: #### L 400.0001, L100.0500, L300.3900, L500.2500 ####[facility] [address] [place], [address] [facility] 06-08-2024 [facility] Telephone (INTMWS) ZAYKEISHA Barry ([id number]) 1945 F Date Time Provider Department 06/08/24 XOCHITL CASTREJON During your visit today, we [...] Fully Assessed Reason for Visit: No Show [1558] Prescriptions as of 06/08/2024 - albuterol HFA (PROAIR HFA) 90 mcg/actuation inhaler Inhale 2 Puffs as instructed every 4 hours as needed for wheezing/shortness of breath. 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 ([facility] pulmonology) - blood sugar diagnostic (BLOOD [...] Encounter Status:Closed by JAMARI MAKI on 06/08/24 [facility] CNPN Telephone (INTMWS) KEISHA RED ([id number]) 1945 F Date Time Provider Department 06/08/24 JOON LOPEZ INTMWS During your visit today, we recorded the following information about you: Roopa Edgar, VLAD 06/08/2024 9:42 AM Signed Soren with [facility] calls to let provider know [...] which are not on current med list. Sroen will remove those medications. Any other recommendations for pain control from provider. VLAD Reyna Liza D, MD 06/08/2024 7:33 PM Signed Does the Percocet or flexeril help at all for the pain? Guerline Davila LPN 06/09/2024 9:56 AM Signed Spoke with Soren with [facility] Soren states that he believes [...] causing her INR to go up so bindery machine setter want her to titrate this down. Methocarbamo [...] hours as needed for wheezing/shortness of breath. 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 ([facility] pulmonology) - blood sugar diagnostic (BLOOD GLUCOSE TEST) test strip Test blood sugar(s) 1 times daily. Dx: Type 2 DM - Controlled E11.9 Insulin: No - Lancets lancets Test blood sugar(s) (more content not included)... Normal [facility] 06-03-2024 [facility] Telephone (UCWSTR) KEISHA RED ([id number]) 1945 F Date Time Provider Department 06/03/24 CONNIE GIORDANO [facility] During your visit today, we recorded the following information about you: Connie Giordano APRN.MANAGER FRONT 06/03/2024 7:19 AM Signed Please notify caregiver that urine culture showed likely contamination. Patient was sent to ER. If patient still having urinary concerns needs to f/u with pcp for recheck. Carmela Payne LPN 06/03/2024 9:01 AM Signed Patient given results and verbalized understanding of instructions given. Carmela Payne LPN Allergies As of Date: 06/03/2024 Noted [...] hours as needed for wheezing/shortness of breath. 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 ([facility] pulmonology) - blood sugar diagnostic (BLOOD [...] due to extrinsic circulati*09/23/2023 Encounter Status:Closed by MARCIACARMELA on 06/03/24 Normal [facility] 12 Lead EKGon 06-01-2024 12 Lead EKG Normal [facility] Bacteria Ur Culton 4 Bacteria identified [...] technique or straight catheterization for???urine???collec tion. Normal [facility] Comment on above: Performed By: #### 6 30-4 ####[facility] LABCLIA [id number] [address] OF [facility] Basic Metabolic Profile (BMP )on 06-01-2024 BUN/CRE 15.1 RATIO Normal 10-20 [facility] Comment on above: Performed By: #### L 100.0500, L500.2500 ####[facility] [address] [place], [address] CA,Total 9.5 mg/dL Normal 8.5-10.1 [facility] Comment on above: Performed By: #### L 100.0500, L500.2500 ####[facility] [address] [place], [address] Chloride [Moles/Vol] 107 mmol/L Normal 98-107 [facility] Comment on above: Performed By: #### L 100.0500, L500.2500 ####[facility] [address] [place], [address] CO2 [Moles/Vol] 28.0 mmol/L Normal 21.0-32.0 [facility] Comment on above: Performed By: #### L 100.0500, L500.2500 ####[facility] [address] [place], [address] Creatinine [Mass/Vol] 1.06 mg/dL High 0.55-1.02 [facility] Comment on above: Result Comment: The validity of the calculated GFR GFRAA in patients over70 years has not been determined. Clinical correlation isessential. Performed By: #### L 100.0500, L500.2500 ####[facility] [address] [place], [address] ECRCL 51.09 ml/min Normal [facility] Comment on above: Performed By: #### L 100.0500, L500.2500 ####[facility] [address] [place], [address] EST GFR - AA 65 mL/min Normal >60 [facility] Comment on above: Result Comment: Afri can [place] GFR Calc Performed By: #### L 100.0500, L500.2500 ####[facility] [address] [place], [address] GAP 4 Low 5-15 [facility] Comment on above: Performed By: #### L 100.0500, L500.2500 ####[facility] [address] [place], [address] GFR/1.73 sq M.predicted among non-blacks MDRD (S/P/Bld) [Vol rate/Area] 53 mL/min/{1.73_m2} Low >60 [facility] Comment on above: Result Comment: Non- GFR Calc Performed By: #### L 100.0500, L500.2500 ####[facility] [address] [place], [address] Glucose [Mass/Vol] 147 mg/dL High 74-106 [facility] Comment on above: Result Comment: Fast ing Glucose result greater than or equal to 126 mg/dLsuggests DIABETES MELLITUS per A.D.A. criteria. Performed By: #### L 100.0500, L500.2500 ####[facility] [address] [place], [address] Potassium [Moles/Vol] 3.5 mmol/L Normal 3.5-5.1 [facility] Comment on above: Performed By: #### L 100.0500, L500.2500 ####[facility] [address] [place], [address] Sodium [Moles/Vol] 139 mmol/L Normal 136-145 [facility] Comment on above: Performed By: #### L 100.0500, L500.2500 ####[facility] [address] [place], [address] Urea nitrogen [Mass/Vol] 16 mg/dL Normal 7-18 [facility] Comment on above: Performed By: #### L 100.0500, L500.2500 ####[facility] [address] [place], [address] Brain/Head without Contrasto 06-01-2024 Brain/Head without Contrast Normal [facility] CBC-Complete Blood Cnt No Di ffon 06-01-2024 Erythrocyte distribution width (RBC) [Ratio] 12.7 % Normal 11.6-14.6 [facility] Comment on above: Performed By: #### L 100.0500, L500.2500 ####[facility] [address] [place], [address] Hematocrit (Bld) [Volume fraction] 38.8 % Normal 37-47 [facility] Comment on above: Performed By: #### L 100.0500, L500.2500 ####[facility] [address] [place], [address] Hemoglobin (Bld) [Mass/Vol] 12.7 g/dL Normal 12.0-15.0 [facility] Comment on above: Performed By: #### L 100.0500, L500.2500 ####[facility] [address] [place], [address] MCH (RBC) [Entitic mass] 31.7 pg Normal 27.0-32.0 [facility] Comment on above: Performed By: #### L 100.0500, L500.2500 ####[facility] [address] [place], [address] MCHC (RBC) [Mass/Vol] 32.7 g/dL Normal 32-36 [facility] Comment on above: Performed By: #### L 100.0500, L500.2500 ####[facility] [address] [place], [address] MCV (RBC) [Entitic vol] 96.8 fL Normal 81-99 [facility] Comment on above: Performed By: #### L 100.0500, L500.2500 ####[facility] [address] [place], [address] Platelet mean volume (Bld) [Entitic vol] 9.9 fL Normal 6.2-12.0 [facility] Comment on above: Performed By: #### L 100.0500, L500.2500 ####[facility] [address] [place], [address] Platelets (Bld) [#/Vol] 136 10*3/uL Low 150-450 [facility] Comment on above: Performed By: #### L 100.0500, L500.2500 ####[facility] [address] [place], [address] RBC (Bld) [#/Vol] 4.01 10*6/uL Low 4.2-5.4 [facility] Comment on above: Performed By: #### L 100.0500, L500.2500 ####[facility] [address] [place], [address] RDW SD 45.2 fl High 35.1-43.9 [facility] Comment on above: Performed By: #### L 100.0500, L500.2500 ####[facility] [address] [place], [address] WBC (Bld) [#/Vol] 5.4 10*3/uL Normal 4.4-11.0 [facility] Comment on above: Performed By: #### L 100.0500, L500.2500 ####[facility] [address] [place], [address] CNOVon 06-01-2024 CNOV Office Visit (UCWSTR) KEISHA RED ([id number]) 1945 F Date Time Provider Department 06/01/24 4:45 PM CLARISSE JOYCE [facility] During your visit today, we recorded the following information about you: Temperature Pulse Respiration Blood pressure 97.8 degrees 86/minute 21/minute 150/76 Weight 86.5 kg Clarisse Joyce APRN.MANAGER FRONT 06/01/2024 5:38 PM Signed This note was [...] note, patient was evaluated and admitted to [facility] At that time she was evaluated for falls and found to have a UTI Presents with her son today, with concerns she has UTI again. Denies abdominal pain Denies N/V/D Denies burning, frequency, or urgency Patient denies pain. The history is provided by the patient. No office chair assembler was used. PAST MEDICAL HISTORY No date: [...] Right shoulder s/p fall with reduction at [facility] No date: Type II or unspecified [...] hours as needed for wheezing/shortness of breath. 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 ([facility] pulmonology) blood sugar diagnostic (BLOOD GLUCOSE [...] Use Smoki (more content not included)... Normal [facility] KE[facility] ([id number]) 1945 F Date Time Provider Department 06/01/24 JOON LOPEZ During your visit today, we recorded the following information about you: Tamy Donis LPN 06/01/2024 3:23 PM Signed Soren from [facility] calling patient is complaining of more back pain, her TENS unit broke. Family is trying to get another one for her. Daughter was asking for pain management referral, not Dr Agudelo, she was saying Dr Hodges here in [place]. Pending consult, needs diagnosis. Please advise Trini Tang APRN.PACKAGING OPERATOR 06/02/2024 2:29 PM Signed Ok please process Guerline Davila LPN 06/02/2024 2:50 PM Signed Soren from [facility] notified of providers message and verbalized understanding. [...] Order(s):CONSULT TO PAIN MGT [20000131] Order #: [id number]: 1 FUTURE Prescriptions as of 06/02/2024 - albuterol HFA (PROAIR HFA) 90 mcg/actuation inhaler Inhale 2 Puffs as instructed every 4 hours as needed for wheezing/shortness of breath. 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 ([facility] pulmonology) - blood sugar diagnostic (BLOOD [...] 01/21/2021 Pacemak (more content not included)... Normal [facility] Chest 1 View (Portable)on Chest 1 View (Portable) Normal [facility] Emergency Department Summary on 06-01-2024 Emergency Department Summary Normal [facility] Prothrombin Time w/INRon INR Coag (PPP) [Relative time] 2.3 {INR} Normal [facility] Comment on above: Performed By: #### L 300.3900 ####[facility] [address] [place], [place], [id number] PT Coag (PPP) [Time] 25.3 s High 11.7-14.9 [facility] Comment on above: Performed By: #### L 300.3900 ####[facility] [address] [place], [place], [address] UA DIP, URINE (POC)on 2023 BILIRUBIN UA (POCT) Small Abnormal Negative [facility] CLARITY UA (POCT) Cloudy [facility] COLOR UA (POCT) Dark yellow [facility] GLUCOSE UA (POCT) Negative Negative mg/dL [facility] Hemoglobin Ql (U) Negative Negative [facility] Interpretation and review of laboratory results Abnormal [facility] KETONE UA (POCT) Negative Negative mg/dL [facility] LEUKOCYTES UA (POCT) Small Abnormal Negative [facility] NITRITE UA (POCT) Negative Negative [facility] PH UA (POCT) 5.5 4.5 - 8.0 [facility] Protein Ql (U) 30 mg/dL Abnormal Negative [facility] SPECIFIC GRAVITY UA (POCT) >=1.030 1.005 - 1.030 [facility] UROBILINOGEN UA (POCT) 0.2 Carlita l E.U./dL [facility] Location:[address], [place], [place], [address] [place] [address] POINT OF CARE [facility] Urinalysis, Completeon 06-01 BACTERIA 1+ /hpf Normal None Seen [facility] Comment on above: Order Comment: CLEAN CATCH Performed By: #### L 400.0001 ####[facility] [address] [place], [address] RBC 0-5 SEEN Normal 0-5 [facility] Comment on above: Order Comment: CLEAN CATCH Performed By: #### L 400.0001 ####[facility] [address] [place], [place], [address] WBC 0-5 SEEN Normal 0-5 [facility] Comment on above: Order Comment: CLEAN CATCH Performed By: #### L 400.0001 ####[facility] [address] [place], [place], [address] EPI,SQUAMOUS 0 SEEN Normal 5-10 [facility] Comment on above: Order Comment: CLEAN CATCH Performed By: #### L 400.0001 ####[facility] [address] [place], [address] Mucus Ql (Urine sed) 0 SEEN Normal [facility] Comment on above: Order Comment: CLEAN CATCH Performed By: #### L 400.0001 ####[facility] [address] [place], [address] 25-hydroxyvitamin D3 [Mass/V ol]on 03-22-2024 Interpretation and review of laboratory results Abnormal [facility] The reference range interval was based on an analysis of samples from healthy adults and may not pertain to children from 0-18 years old. [facility] CBC W Auto Differential pane l (Bld)on 03-22-2024 Basophils (Bld) [#/Vol] 0.06 10*3/uL [facility] Basophils/100 WBC (Bld) 1.1 % [facility] Differential cell count method Nom (Bld) Auto [facility] Eosinophils (Bld) [#/Vol] 0.26 10*3/uL [facility] Eosinophils/100 WBC (Bld) 4.7 % [facility] Erythrocyte distribution width (RBC) [Ratio] 12.5 % 11.5 - 15.0 % [facility] Hematocrit (Bld) [Volume fraction] 41.6 % 36.0 - 46.0 % [facility] Hemoglobin (Bld) [Mass/Vol] 13.6 g/dL 11.5 - 15.5 g/dL [facility] Immature granulocytes (Bld) [#/Vol] 0.03 10*3/uL [facility] Immature granulocytes/100 WBC (Bld) 0.5 % [facility] Interpretation and review of laboratory results Abnormal [facility] Lymphocytes (Bld) [#/Vol] 1.35 10*3/uL [facility] Lymphocytes/100 WBC (Bld) 24.6 % [facility] MCH (RBC) [Entitic mass] 32.5 pg 26. 0 - 34.0 pg [facility] MCHC (RBC) [Mass/Vol] 32.7 g/dL 30.5 - 36.0 g/dL [facility] MCV (RBC) [Entitic vol] 99.3 fL 80.0 - 100.0 fL [facility] Monocytes (Bld) [#/Vol] 0.40 10*3/uL [facility] Monocytes/100 WBC (Bld) 7.3 % [facility] Neutrophils (Bld) [#/Vol] 3.39 10*3/uL [facility] Neutrophils/100 WBC (Bld) 61.8 % [facility] Nucleated RBC (Bld) [#/Vol] NINF [facility] Nucleated RBC/100 WBC (Bld) [Ratio] 0.0 % /100 WBC [facility] Platelet mean volume (Bld) [Entitic vol] 10.7 fL 9.0 - 12.7 fL [facility] Platelets (Bld) [#/Vol] 125 10*3/uL Low [facility] RBC (Bld) [#/Vol] 4.19 10*6/uL 3.90 - 5.2 0 m/uL [facility] WBC (Bld) [#/Vol] 5.49 10*3/uL [facility] Cobalamin (Vitamin B12) [Mas s/Vol]on 03-22-2024 Interpretation and review of laboratory results Abnormal [facility] Comprehensive metabolic 2000 panelon 03-22-2024 Albumin [Mass/Vol] 4.2 g/dL 3.9 - 4.9 g/dL [facility] ALP [Catalytic activity/Vol] 89 U/L 34 - 123 U/L [facility] ALT [Catalytic activity/Vol] 13 U/L 7 - 38 U/L [facility] Anion gap [Moles/Vol] 12 mmol/L 9 - 18 mmol/L [facility] AST [Catalytic activity/Vol] 20 U/L 13 - 35 U/L [facility] Bilirubin [Mass/Vol] 0.5 mg/dL 0.2 - 1 .3 mg/dL [facility] Calcium [Mass/Vol] 9.7 mg/dL 8.5 - 10. 2 mg/dL [facility] Chloride [Moles/Vol] 103 mmol/L 97 - 10 5 mmol/L [facility] CO2 [Moles/Vol] 25 mmol/L 22 - 30 mmol/L [facility] Creatinine [Mass/Vol] 0.84 mg/dL 0.58 - 0.96 mg/dL [facility] GFR/1.73 sq M.predicted among non-blacks MDRD (S/P/Bld) [Vol rate/Area] 72 mL/min/{1.73_m2} - PINF [facility] Comment on above: Estimated Glomerular Filtration Rate [...] High 74 - 99 mg/dL [facility] Comment on above: The [place] Diab[employer] (ADA) provides guidance for [...] Standards of Medical Care in Diabetes 2016, [place] [employer]. Diabetes Care. 2016.39(Suppl 1). Potassium [Moles/Vol] 4.0 mmol/L 3.7 - 5.1 mmol/L [facility] Protein [Mass/Vol] 7.0 g/dL 6.3 - 8.0 g/dL [facility] Sodium [Moles/Vol] 140 mmol/L 136 - 144 mmol/L [facility] Urea nitrogen [Mass/Vol] 10 mg/dL 7 - 21 mg/d L [facility] HbA1c (Bld)on 03-22-2024 Average glucose Estimated from glycated hemoglobin (Bld) [Mass/Vol] 148 mg/dL [facility] Comment on above: eAG: (Estimated aver age glucose) is a calculated value from HgbA1c and is employment representative of the average blood glucose level in the last 2-3 month period. HbA1c (Bld) [Mass fraction] 6.8 % High 4.3 - 5.6 % [facility] Comment on above: [place] Diabetes As sociation guidelines indicate that patients with HgbA1c in the range 5.7-6.4% are at increased risk for development of diabetes, and intervention by lifestyle modification may be beneficial. HgbA1c greater or equal to 6.5% is considered diagnostic of diabetes. Interpretation and review of laboratory results Abnormal [facility] MAGNESIUMon 03-22-2024 Magnesium [Mass/Vol] 1.4 mg/dL Low 1.7 - 2 .3 mg/dL [facility] No Panel Informationon 03-22 [facility] Interpretation and review of laboratory results Abnormal [facility] PT panel Coag (PPP)on 2023 INR Coag (PPP) [Relative time] 3.3 {INR} High 0.9 - 1.3 [facility] Comment on above: Vitamin K Antagonist (VKA) Therapeutic Range: INR 2 to 3 (Target INR of 2.5) Note: For patients treated with VKA drugs, such as warfarin, the [place] [employer] 2012 Guideline recommends [...] GAUTHIER, et al. Chest 2012, 141:7S-47S Chidi ORLANDO, et al. [facility] 2017, 70: 252-289 Interpretation and review of laboratory results Abnormal [facility] PT Coag (PPP) [Time] 31.2 s [facility] THYROID STIMULATING HORMONEo n 03-22-2024 TSH Qn 1.240 m[IU]/L [facility] TSH Qnon 03-22-2024 Interpretation and review of laboratory results Normal [facility] VITAMIN B12on 03-22-2024 Cobalamin (Vitamin B12) [Mass/Vol] 219 pg/mL Low 232 - 1245 pg/mL [facility] VITAMIN D 25 HYDROXYon 03-22 25-hydroxyvitamin D3 [Mass/Vol] 10.7 ng/mL Low 31.0 - 80.0 ng/mL [facility] Comment on above: Classification of 25 [place] Vitamin D status: Deficiency/Insufficiency: < or = 30 ng/ml. Sufficiency/Optimal Levels: 31-80 ng/mL Toxicity: > 100 ng/mL. Test performed by chemiluminescent immunoassay. Absolute lymphocyte countOrd ered By: Josesito Miller on 01-30-2024 Lymphocytes Auto (Unsp spec) [#/Vol] 1.09 10*3/uL 0.83-4.51 [facility] Automated lymphocyte count a s percentage of total leukocytesOrdered By: Josesito Miller on 01-30-2024 Lymphocytes/100 WBC Auto (Unsp spec) 24.4 % 19-41 [facility] Basophil percentageOrdered B y: Josesito Miller on 01-30-2024 Basophils/100 WBC (Bld) 0.9 % 0-1 [facility] Chloride [Moles/Vol] 108 mmol/L 98-107 [facility] Eosinophils/100 WBC (Bld) 4.7 % 0-5 [facility] Glucose [Mass/Vol] 124 mg/dL 74-106 [facility] Comment on above: Fasting Glucose resu lt from 100 to 125 mg/dL suggests IMPAIRED HOMEOSTASIS per A.D.A. criteria. Hemoglobin (Bld) [Mass/Vol] 12.0 g/dL 12.0-15.0 [facility] Monocytes/100 WBC (Bld) 9.6 % 0-10 [facility] Neutrophils (Bld) [#/Vol] 2.7 10*3/uL 2.0-7.7 [facility] Neutrophils/100 WBC (Bld) 60.0 % 47-70 [facility] Potassium [Moles/Vol] 3.9 mmol/L 3.5-5.1 [facility] Sodium [Moles/Vol] 137 mmol/L 136-145 [facility] WBC (Bld) [#/Vol] 4.5 10*3/uL 4.4-11.0 [facility] Determination of erythrocyte mean corpuscular volume (MCV)Ordered By: Josesito Miller on 01-30-2024 MCV (RBC) [Entitic vol] 98.9 fL 81-99 [facility] Erythrocyte distribution wid th ratioOrdered By: Josesito Miller on 01-30-2024 Erythrocyte distribution width (RBC) [Ratio] 13.0 % 11.6-14.6 [facility] Erythrocyte distribution wid th standard deviationOrdered By: Josesito Miller on 01-30-2024 Erythrocyte distribution width (RBC) [Entitic vol] 47.0 fL 35.1-43.9 [facility] Hematocrit Auto (Bld) [Volum e fraction]Ordered By: Josesito Miller on 01-30-2024 Hematocrit (Bld) [Volume fraction] 35.8 % 37-47 [facility] Immature granulocytes/100 WB C Auto (Bld)Ordered By: Josesito Miller on 01-30-2024 Immature granulocytes/100 WBC (Bld) 0.400 % 0.0-0.9 [facility] Comment on above: IG% - Immature Granu locytes (promyelocytes, myelocytes and metamyelocytes) > 1% indicates that a LEFT SHIFT is Present. Laboratory - Chemistry and C hemistry - challengeOrdered By: Josesito Miller on 01-30-2024 CO2 [Moles/Vol] 23.0 mmol/L 21.0-32.0 [facility] Urea nitrogen/Creatinine [Mass ratio] 12.4 mg/mg 10-20 [facility] Laboratory - Chemistry and C hemistry - challengeOrdered By: Kassi Fisher on 01-30-2024 Magnesium [Mass/Vol] 2.2 mg/dL 1.6-2.6 [facility] Laboratory - Hematology and Cell countsOrdered By: Josesito Miller on 01-30-2024 MCH (RBC) [Entitic mass] 33.1 pg 27.0-32.0 [facility] MCHC (RBC) [Mass/Vol] 33.5 g/dL 32-36 [facility] Nucleated RBC/100 WBC (Bld) [Ratio] 0 % 0-5 [facility] Platelet mean volume (Bld) [Entitic vol] 9.3 fL 6.2-12.0 [facility] Platelets (Bld) [#/Vol] 110 10*3/uL 150-450 [facility] No Panel InformationOrdered By: Josesito Miller on 01-30-2024 Estimated Creatinine Clearance Calc 69.35 ml/min [facility] Estimated GFR (MDRD) Amer 101 mL/min >60 [facility] Comment on above: GFR Calc Estimated GFR (MDRD) Non-Af Amer 83 mL/min >60 [facility] Comment on above: Non- GFR Calc RBC Auto (Bld) [#/Vol]Ordere d By: Josesito Miller on 01-30-2024 RBC (Bld) [#/Vol] 3.62 10*6/uL 4.2-5.4 [facility] Serum or plasma calcium alexander urement (mass/volume)Ordered By: Josesito Miller on 01-30-2024 Calcium [Mass/Vol] 8.2 mg/dL 8.5-10.1 [facility] Serum or plasma creatinine m easurement (mass/volume)Ordered By: Josesito Miller on 01-30-2024 Creatinine [Mass/Vol] 0.72 mg/dL 0.55-1.02 [facility] Comment on above: The validity of the calculated GFR & GFRAA in patients over 70 years has not been determined. Clinical correlation is essential. Serum or plasma urea nitroge n measurement (mass/volume)Ordered By: Josesito Miller on 01-30-2024 Urea nitrogen [Mass/Vol] 9 mg/dL 7-18 [facility] Thin prep Papanicolaou smear with manual screeningOrdered By: Tonio Glass on 01-30-2024 Thin prep Papanicolaou smear with manual screening 126 mg/dL 74-106 [facility] Comment on above: MANAGEMENT OF PATIEN T CARE PER NURSING PROTOCOL Thin prep Papanicolaou smear with manual screeningOrdered By: Josesito Miller on 01-30-2024 Thin prep Papanicolaou smear with manual screening 6 5-15 [facility] .GFRon 01-29-2024 GFR 59 ml/min/1.73sqm Normal [facility] ([place]) Comment on above: Result Comment: GFR Population [...] meters Performed By: #### L ROBBIN MCKEON, TROPHS, PRO, CMP, GFR, ANEU, ADIFF, CBC ####[address] [place], [place] [address] GFR Non- 49 ml/min/1.73sqm Normal [facility] ([place]) Comment on above: Result Comment: GFR Population [...] meters Performed By: #### L ROBBIN MCKEON, TROPHS, PRO, CMP, GFR, ANEU, ADIFF, CBC ####[address] [place], [place] [address] .Urinalysis Microscopic (AO) on 01-29-2024 UA RBC 0-5 Abnormal None Seen [facility] ([place]) Comment on above: Performed By: #### U A, UAMICAO #### [address] [place], [place] [address] UA Squam Epithelial 0-5 Abnormal None Seen [facility] ([place]) Comment on above: Performed By: #### U A, UAMICAO #### [address] [place], [place] [address] UA WBC 5-10 Abnormal None Seen [facility] ([place]) Comment on above: Performed By: #### U A, UAMICAO #### [address] [place], [place] [address] Absolute lymphocyte countOrd ered By: Miguel Yingrus on 01-29-2024 Lymphocytes Auto (Unsp spec) [#/Vol] 0.90 10*3/uL 0.83-4.51 [facility] Automated lymphocyte count a s percentage of total leukocytesOrdered By: Miguel Trever on 01-29-2024 Lymphocytes/100 WBC Auto (Unsp spec) 18.3 % 19-41 [facility] Basophil percentageOrdered B y: Miguel Trever on 01-29-2024 Basophils/100 WBC (Bld) 0.8 % 0-1 [facility] Eosinophils/100 WBC (Bld) 2.8 % 0-5 [facility] Hemoglobin (Bld) [Mass/Vol] 14.2 g/dL 12.0-15.0 [facility] Monocytes/100 WBC (Bld) 7.7 % 0-10 [facility] Neutrophils (Bld) [#/Vol] 3.4 10*3/uL 2.0-7.7 [facility] Neutrophils/100 WBC (Bld) 69.8 % 47-70 [facility] WBC (Bld) [#/Vol] 4.9 10*3/uL 4.4-11.0 [facility] Basophil percentageOrdered B y: Meron Mendoza on 01-29-2024 Bilirubin [Mass/Vol] 1.00 mg/dL 0.20-1.00 [facility] Comment on above: For patients on eltr ombopag therapy, use of Dimension [place] TBIL is not recommended. Chloride [Moles/Vol] 107 mmol/L 98-107 [facility] Glucose [Mass/Vol] 137 mg/dL 74-106 [facility] Comment on above: Fasting Glucose resu lt greater than or equal to 126 mg/dL suggests DIABETES MELLITUS per A.D.A. criteria. Potassium [Moles/Vol] 4.2 mmol/L 3.5-5.1 [facility] Comment on above: Moderate Hemolysis, Result may be falsely increased. Protein [Mass/Vol] 7.0 g/dL 6.4-8.2 [facility] Sodium [Moles/Vol] 137 mmol/L 136-145 [facility] Basophil percentage 0-5 SEEN /hpf 0-5 [facility] Bilirubin Test strip Ql (U)O rdered By: Meron Mendoza on 01-29-2024 Bilirubin Ql (U) Negative Negative [facility] CMPon 01-29-2024 Albumin Level 3.5 G/dL Normal 3.4-4.8 [facility] ([place]) Comment on above: Performed By: #### L ROBBIN MCKEON, TROPHS, PRO, CMP, GFR, ANEU, ADIFF, CBC ####[address] [place], [place] [address] Albumin/Globulin [Mass ratio] 1.0 {ratio} Low 1.1-2.5 [facility] ([place]) Comment on above: Performed By: #### L ROBBIN MCKEON, TROPHS, PRO, CMP, GFR, ANEU, ADIFF, CBC ####[address] [place], [place] [address] ALP [Catalytic activity/Vol] 137 U/L High 40-135 [facility] ([place]) Comment on above: Performed By: #### L ROBBIN MCKEON, TROPHS, PRO, CMP, GFR, ANEU, ADIFF, CBC ####[address] [place], [place] [address] ALT [Catalytic activity/Vol] 17 U/L Normal 14-59 [facility] ([place]) Comment on above: Performed By: #### L ROBBIN MCKEON, TROPHS, PRO, CMP, GFR, ANEU, ADIFF, CBC ####[address] [place], [place] [address] AST [Catalytic activity/Vol] 18 U/L Normal 10-40 [facility] ([place]) Comment on above: Performed By: #### L ROBBIN MCKEON, TROPHS, PRO, CMP, GFR, ANEU, ADIFF, CBC ####[address] [place], [place] [address] Bili Total 0.4 mg/dL Normal 0.2-1.0 [facility] ([place]) Comment on above: Result Comment: Use of this assay is not recommended for patients undergoing treatment with eltrombopag due to the potential for falsely elevated results. Performed By: #### L ROBBIN MCKEON, TROPHS, PRO, CMP, GFR, ANEU, ADIFF, CBC ####[address] [place], [place] [address] BUN/Creatinine Ratio 10 ratio Normal 7-27 [facility] ([place]) Comment on above: Performed By: #### L ROBBIN MCKEON, TROPHS, PRO, CMP, GFR, ANEU, ADIFF, CBC ####[address] [place], [place] [address] Calcium [Mass/Vol] 8.7 mg/dL Normal 8.4-10.2 [facility] ([place]) Comment on above: Performed By: #### L ROBBIN MCKEON, TROPHS, PRO, CMP, GFR, ANEU, ADIFF, CBC ####[address] [place], [place] [address] Chloride [Moles/Vol] 102 mmol/L Normal 98-107 [facility] ([place]) Comment on above: Performed By: #### L ROBBIN MCKEON, TROPHS, PRO, CMP, GFR, ANEU, ADIFF, CBC ####[address] [place], [place] [address] CO2 [Moles/Vol] 26 mmol/L Normal 23-31 [facility] ([place]) Comment on above: Performed By: #### L ROBBIN MCKEON, TROPHS, PRO, CMP, GFR, ANEU, ADIFF, CBC ####[address] [place], [place] [address] Creatinine [Mass/Vol] 1.09 mg/dL High 0.55-1.02 [facility] ([place]) Comment on above: Performed By: #### L ROBBIN MCKEON, TROPHS, PRO, CMP, GFR, ANEU, ADIFF, CBC ####[address] [place], [place] [address] Electrolyte Balance 10.0 mEq/L Normal 4.0-15.0 [facility] ([place]) Comment on above: Performed By: #### L ROBBIN MCKEON, TROPHS, PRO, CMP, GFR, ANEU, ADIFF, CBC ####[id number] [place], [place] [address] Globulin 3.5 G/dL Normal [facility] ([place]) Comment on above: Performed By: #### L ROBBIN MCKEON, TROPHS, PRO, CMP, GFR, ANEU, ADIFF, CBC ####[address] [place], [place] [address] Glucose [Mass/Vol] 256 mg/dL High 83-110 [facility] ([place]) Comment on above: Performed By: #### L ROBBIN MCKEON, TROPHS, PRO, CMP, GFR, ANEU, ADIFF, CBC ####[address] [place], [place] [address] Potassium [Moles/Vol] 3.8 mmol/L Normal 3.5-5.1 [facility] ([place]) Comment on above: Performed By: #### L ROBBIN MCKEON, TROPHS, PRO, CMP, GFR, ANEU, ADIFF, CBC ####[address] [place], [place] [address] Sodium [Moles/Vol] 138 mmol/L Normal 136-145 [facility] ([place]) Comment on above: Performed By: #### L ROBBIN MCKEON, TROPHS, PRO, CMP, GFR, ANEU, ADIFF, CBC ####[address] [place], [place] [address] Total Protein 7.0 G/dL Normal 6.4-8.2 [facility] ([place]) Comment on above: Performed By: #### L ROBBIN MCKEON, TROPHS, PRO, CMP, GFR, ANEU, ADIFF, CBC ####[address] [place], [place] [address] Urea nitrogen [Mass/Vol] 11 mg/dL Normal 7-18 [facility] ([place]) Comment on above: Performed By: #### L ROBBIN MCKEON, TROPHS, PRO, CMP, GFR, ANEU, ADIFF, CBC ####[address] [place], [place] [address] Determination of erythrocyte mean corpuscular volume (MCV)Ordered By: Miguel Perera on 01-29-2024 MCV (RBC) [Entitic vol] 99.1 fL 81-99 [facility] Erythrocyte distribution wid th ratioOrdered By: Miguel Perera on 01-29-2024 Erythrocyte distribution width (RBC) [Ratio] 13.1 % 11.6-14.6 [facility] Erythrocyte distribution wid th standard deviationOrdered By: Miguel Perera on 01-29-2024 Erythrocyte distribution width (RBC) [Entitic vol] 47.6 fL 35.1-43.9 [facility] Hematocrit Auto (Bld) [Volum e fraction]Ordered By: Miguel Perera on 01-29-2024 Hematocrit (Bld) [Volume fraction] 44.2 % 37-47 [facility] Immature granulocytes/100 WB C Auto (Bld)Ordered By: Miguel Perera on 01-29-2024 Immature granulocytes/100 WBC (Bld) 0.600 % 0.0-0.9 [facility] Comment on above: IG% - Immature Granu locytes (promyelocytes, myelocytes and metamyelocytes) > 1% indicates that a LEFT SHIFT is Present. Ketones Test strip Ql (U)Ord ered By: Meron Mendoza on 01-29-2024 Ketones Ql (U) Negative Negative [facility] LIPon 01-29-2024 Lipase Level 12 U/L Low 16-77 [facility] ([place]) Comment on above: Performed By: #### L IP, MDW, TROPHS, PRO, CMP, GFR, ANEU, ADIFF, CBC #### [address] [address] Laboratory - Chemistry and C hemistry - challengeOrdered By: Meron Mendoza on 01-29-2024 Albumin/Globulin [Mass ratio] 0.9 {ratio} 0.9-2.4 [facility] ALP [Catalytic activity/Vol] 90 U/L 45-117 [facility] ALT [Catalytic activity/Vol] 16 U/L 13-56 [facility] CO2 [Moles/Vol] 24.0 mmol/L 21.0-32.0 [facility] Globulin (S) [Mass/Vol] 3.7 g/dL 2.2-4.2 [facility] Urea nitrogen/Creatinine [Mass ratio] 12.1 mg/mg 10-20 [facility] Laboratory - CoagulationOrde red By: Miguel Perera on 01-29-2024 INR Coag (Bld) [Relative time] 1.2 {INR} [facility] PT Coag (PPP) [Time] 14.8 s 11.7-14.9 [facility] Laboratory - Hematology and Cell countsOrdered By: Miguel Perera on 01-29-2024 MCH (RBC) [Entitic mass] 31.8 pg 27.0-32.0 [facility] MCHC (RBC) [Mass/Vol] 32.1 g/dL 32-36 [facility] Nucleated RBC/100 WBC (Bld) [Ratio] 0 % 0-5 [facility] Platelet mean volume (Bld) [Entitic vol] 9.6 fL 6.2-12.0 [facility] Platelets (Bld) [#/Vol] 136 10*3/uL 150-450 [facility] Laboratory - Microbiology an d Antimicrobial susceptibilityOrdered By: Meron Mendoza on 01-29-2024 SARS-CoV-2 (COVID-19) RNA RUSSELL+probe Ql (Unsp spec) [facility] Mucus LM Ql (Urine sed)Order ed By: Meron Mendoza on 01-29-2024 Mucus Ql (Urine sed) 0 SEEN /hpf [facility] Nitrite Test strip Ql (U)Ord ered By: Meron Mendoza on 01-29-2024 Nitrite Ql (U) Negative Negative [facility] No Panel InformationOrdered By: Meron Mendoza on 01-29-2024 Estimated Creatinine Clearance Calc 69.31 ml/min [facility] Estimated GFR (MDRD) Amer 87 mL/min >60 [facility] Comment on above: GFR Calc Estimated GFR (MDRD) Non-Af Amer 72 mL/min >60 [facility] Comment on above: Non- GFR Calc Troponin I High Sensitivity 18 pg/mL 3.0-54.0 [facility] Comment on above: Please Note: [employer] t Units and Gender Specific Reference Ranges. For more information see Policy Stat Procedure [place] High Sensitivity Troponin (TNIH) and attachments. Urine RBC 0-5 SEEN /hpf 0-5 [facility] Protein Test strip Ql (U)Ord ered By: Meron Mendoza on 01-29-2024 Protein Ql (U) 30 mg/dl Negative [facility] RBC Auto (Bld) [#/Vol]Ordere d By: Miguel Perera on 01-29-2024 RBC (Bld) [#/Vol] 4.46 10*6/uL 4.2-5.4 [facility] Serum or plasma calcium alexander urement (mass/volume)Ordered By: Meron Mendoza on 01-29-2024 Calcium [Mass/Vol] 8.8 mg/dL 8.5-10.1 [facility] Serum or plasma creatinine m easurement (mass/volume)Ordered By: Meron Mendoza on 01-29-2024 Creatinine [Mass/Vol] 0.82 mg/dL 0.55-1.02 [facility] Comment on above: The validity of the calculated GFR & GFRAA in patients over 70 years has not been determined. Clinical correlation is essential. Serum or plasma urea nitroge n measurement (mass/volume)Ordered By: Meron Mendoza on 01-29-2024 Urea nitrogen [Mass/Vol] 10 mg/dL 7-18 [facility] Squamous epithelial cells de tection in urine sediment by light microscopyOrdered By: Meron Mendoza on 01-29-2024 Epithelial cells.squamous LM Ql (Urine sed) 0-5 SEEN /hpf 5-10 [facility] TROPHSon 01-29-2024 High Sensitivity Troponin I 11 ng/L Normal 0-51 [facility] ([place]) Comment on above: Result Comment: High Sensitive Troponin I Reference Ranges: Female: 0-51 ng/L Male: 0-76 ng/L Testing performed on [employer] using a homogeneous sandwich chemiluminescent immunoassay based on [employer] technology. Performed By: #### T [facility] #### Adrián [address] [address] High Sensitivity Troponin I 13 ng/L Normal 0-51 [facility] ([place]) Comment on above: Result Comment: High Sensitive Troponin I Reference Ranges: Female: 0-51 ng/L Male: 0-76 ng/L Testing performed on [employer] using a homogeneous sandwich chemiluminescent immunoassay based on [employer] technology. Performed By: #### L IP, MDW, TROPHS, PRO, CMP, GFR, ANEU, ADIFF, CBC ####Adrián [address] [address] Thin prep Papanicolaou smear with manual screeningOrdered By: Meron Mendoza on 01-29-2024 Thin prep Papanicolaou smear with manual screening 3.3 g/dL 3.2-5.0 [facility] Thin prep Papanicolaou smear with manual screening 26 U/L 15-37 [facility] Comment on above: Moderate Hemolysis, Result may be falsely increased. Thin prep Papanicolaou smear with manual screening 6 5-15 [facility] UAon 01-29-2024 Color (U) Yellow Normal [facility] ([place]) Comment on above: Performed By: #### U A, UAMICAO #### [address] [address] Glucose (U) [Mass/Vol] 100 mg/dL Abnormal [facility] ([place]) Comment on above: Performed By: #### U A, UAMICAO #### [address] [address] Ketones Ql (U) Negative Normal Negative [facility] ([place]) Comment on above: Performed By: #### U A, UAMICAO #### [address] [address] UA Appear Slightly Cloudy Abnormal Clear [facility] ([place]) Comment on above: Performed By: #### U A, UAMICAO #### [address] [address] UA Blood Small Abnormal Negative [facility] ([place]) Comment on above: Performed By: #### U A, UAMICAO #### [address] [address] UA Leuk Est Trace Abnormal Negative [facility] ([place]) Comment on above: Performed By: #### U A, UAMICAO #### [address] [address] UA Nitrite Negative Normal Negative [facility]) Comment on above: Performed By: #### U A, UAMICAO #### [address] [address] UA pH 6.0 Normal 5.0 - 8.0 [facility] ([place]) Comment on above: Performed By: #### U A, UAMICAO #### [address] [address] UA Protein 100 mg/dL Abnormal Negative [facility] ([place]) Comment on above: Performed By: #### U A, UAMICAO #### [address] [address] UA Spec Grav >=1.030 Abnormal 1.015-1.025 [facility] ([place]) Comment on above: Performed By: #### U A, UAMICAO #### [address] [address] UA Specimen Type Clean Catch Normal [facility] [facility] ([place]) Comment on above: Performed By: #### U A, UAMICAO #### [place] [address] UA Urobilinogen 0.2 E.U./dL Normal 0.2-1.0 [facility] ([place]) Comment on above: Performed By: #### U A, UAMICAO #### [place] [id number] Urobilinogen (U) [Mass/Vol] Negative Normal Negative [facility] ([place]) Comment on above: Performed By: #### U A, UAMICAO #### [place] [address] Urine blood detectionOrdered By: Meron Mendoza on 01-29-2024 RBC Ql (U) 10 /ul Negative [facility] Urine clarityOrdered By: Marley Mendoza on 01-29-2024 Clarity (U) Clear Clear [facility] Urine color determinationOrd ered By: Meron Mendoza on 01-29-2024 Color (U) Yellow Yellow [facility] Urine glucose detectionOrder ed By: Meron Mendoza on 01-29-2024 Glucose Ql (U) Normal mg/dl Normal [facility] Urine leukocyte esterase det ection by dipstickOrdered By: Meron Mendoza on 01-29-2024 Leukocyte esterase Test strip Ql (U) 25 /ul Negative [facility] Urine pHOrdered By: Meron jack on 01-29-2024 pH (U) 7.0 [pH] 5.0 - 8.0 [facility] Urine sediment bacteria coun t by microscopy (number/high power field)Ordered By: Meron Mendoza on 01-29-2024 Bacteria LM.HPF (Urine sed) [#/Area] 0 /[HPF] None Seen [facility] Urine specific gravity measu rementOrdered By: Meron Mendoza on 01-29-2024 Specific gravity (U) [Rel density] 1.005 1.002-1.030 [facility] Urine urobilinogen measureme ntOrdered By: Meron Mendoza on 01-29-2024 Urobilinogen Ql (U) Normal mg/dl Normal [facility] XR CHEST 1 VIEWon 01-29-2024 XR CHEST [...] 01/28/2024 10:18:43 PM Ordering Provider: RUBIO Hood [facility] ([place]) .Auto Diffon 01-28-2024 Basophil, Absolute 0.1 10 3/mcL Normal 0.0-0.2 [facility] ([place]) Comment on above: Performed By: #### L MD LINDAW, TROPHS, PRO, CMP, GFR, ANEU, ADIFF, CBC #### [address] [address] Basophils/100 WBC (Bld) 1.0 % Normal 0.0-2.5 [facility] ([place]) Comment on above: Performed By: #### L IP, MDW, TROPHS, PRO, CMP, GFR, ANEU, ADIFF, CBC #### [address] [address] Eosinophil, Absolute 0.3 10 3/mcL Normal 0.0-0.4 [facility] ([place]) Comment on above: Performed By: #### L LINDA, ROBBIN, TROPHS, PRO, CMP, GFR, ANEU, ADIFF, CBC #### [address] [address] Eosinophils/100 WBC (Bld) 4.8 % Normal 0.0-7.0 [facility] ([place]) Comment on above: Performed By: #### L ROBBIN MCKEON, TROPHS, PRO, CMP, GFR, ANEU, ADIFF, CBC #### [address] [address] Lymphocyte, Absolute 1.2 10 3/mcL Normal 0.8-3.9 [facility] ([place]) Comment on above: Performed By: #### L ROBBIN MCKEON, TROPHS, PRO, CMP, GFR, ANEU, ADIFF, CBC #### [address] [address] Lymphocytes/100 WBC (Bld) 21.6 % Normal 10.0-50.0 [facility] ([place]) Comment on above: Performed By: #### L MD LINDAW, TROPHS, PRO, CMP, GFR, ANEU, ADIFF, CBC #### [address] [address] Monocyte, Absolute 0.5 10 3/mcL Normal 0.2-1.0 [facility] ([place]) Comment on above: Performed By: #### L ROBBIN MCKEON, TROPHS, PRO, CMP, GFR, ANEU, ADIFF, CBC #### [address] [address] Monocytes/100 WBC (Bld) 9.9 % Normal 1.7-13.0 A [facility] ([place]) Comment on above: Performed By: #### L ROBBIN MCKEON, TROPHS, PRO, CMP, GFR, ANEU, ADIFF, CBC #### [address] [address] Neutrophils/100 WBC (Bld) 62.7 % Normal 37.0-80.0 [facility] ([place]) Comment on above: Performed By: #### L ROBBIN MCKEON, TROPHS, PRO, CMP, GFR, ANEU, ADIFF, CBC #### [place] [address] .MDWon 01-28-2024 Monocyte Distribution Width Not performed Normal 0.00-20.00 [facility] ([place]) Comment on above: Result Comment: ROBBIN testing performed only on adult ER patients between the ages of 18-89 years. Performed By: #### L ROBBIN MCKEON, TROPHS, PRO, CMP, GFR, ANEU, ADIFF, CBC #### [place] [address] .NEUABSon 01-28-2024 Neutrophil, Absolute 3.3 10 3/mcL Normal 2.9-6.2 [facility] ([place]) Comment on above: Performed By: #### L ROBBIN MCKEON, TROPHS, PRO, CMP, GFR, ANEU, ADIFF, CBC #### [place] [address] CBCon 01-28-2024 Erythrocyte distribution width (RBC) [Ratio] 13.9 % Normal 11.5-14.5 [facility] ([place]) Comment on above: Performed By: #### L ROBBIN MCKEON, TROPHS, PRO, CMP, GFR, ANEU, ADIFF, CBC #### [place] [id number] Hematocrit (Bld) [Volume fraction] 38.8 % Normal 37.0-47.0 [facility] ([place]) Comment on above: Performed By: #### L ROBBIN MCKEON, TROPHS, PRO, CMP, GFR, ANEU, ADIFF, CBC #### [place] [address] Hgb 13.2 G/dL Normal 12.0-16.0 [facility] ([place]) Comment on above: Performed By: #### L ROBBIN MCKEON, TROPHS, PRO, CMP, GFR, ANEU, ADIFF, CBC #### [place] [address] MCH (RBC) [Entitic mass] 33.8 pg High 27.0-31.2 [facility] ([place]) Comment on above: Performed By: #### L ROBBIN MCKEON, AURORAS, PRO, CMP, GFR, ANEU, ADIFF, CBC #### [place] [address] MCHC 34.1 G/dL Normal 33.0-37.0 [facility] ([place]) Comment on above: Performed By: #### L ROBBIN MCKEON, AURORAS, PRO, CMP, GFR, ANEU, ADIFF, CBC #### [address] [address] MCV (RBC) [Entitic vol] 98.9 fL High 80.0-94.0 [facility] ([place]) Comment on above: Performed By: #### L ROBBIN MCKEON, TROPHS, PRO, CMP, GFR, ANEU, ADIFF, CBC #### [place] [address] Platelet 127 10 3/mcL Low 130-400 [facility] ([place]) Comment on above: Performed By: #### L ROBBIN MCKEON, TROPHS, PRO, CMP, GFR, ANEU, ADIFF, CBC #### [place] [address] Platelet mean volume (Bld) [Entitic vol] 7.6 fL Normal 7.4-10.4 [facility] ([place]) Comment on above: Performed By: #### L ROBBIN MCKEON, TROPHS, PRO, CMP, GFR, ANEU, ADIFF, CBC #### Adrián [address] [address] RBC 3.92 10 6/mcL Low 4.20-5.40 [facility] ([place]) Comment on above: Performed By: #### L ROBBIN MCKEON, TROPHS, PRO, CMP, GFR, ANEU, ADIFF, CBC #### Adrián [place] [id number] [place], [place] [address] WBC 5.3 10 3/mcL Normal 4.6-10.8 [facility] ([place]) Comment on above: Performed By: #### L ROBBIN MCKEON, TROPHS, PRO, CMP, GFR, ANEU, ADIFF, CBC #### Adrián [address] [address] LABORATORYOrdered By: SYSTEM SYSTEM on 01-28-2024 Troponin I.cardiac DL <= 0.01 ng/mL [Mass/Vol] 11 ng/L Normal 0 - 51 ng/L AO ADM SS Comment on above: Interpretive Data: H igh Sensitive Troponin I Reference Ranges: Female: 0-51 ng/L Male: 0-76 ng/L Testing performed on [employer] using a homogeneous sandwich chemiluminescent immunoassay based on [employer] technology. Albumin BCP dye [Mass/Vol] 3.5 G/dL [...] ng/L Male: 0-76 ng/L Testing performed on [employer] using a homogeneous sandwich chemiluminescent immunoassay based on [employer] technology. Urea nitrogen [Mass/Vol] 11 mg/dL Normal [...] Comment on above: Interpretive Data: [employer] (CHEST, 1992, [id number]) [...] Coag (PPP) [Time] 13.8 s Normal 9.0-14.2 [facility] ([place]) Comment on above: Performed By: #### L IP, MDW, TROPHS, PRO, CMP, GFR, ANEU, ADIFF, CBC #### [address] [address] PT International Ratio 1.2 Normal [facility] ([place]) Comment on above: Result Comment: [employer] (CHEST, 1992, [id number]) recommended therapeutic range for oral anticoagulant therapy is: LOW RISK: Prophylaxis of venous thrombosis INR: 2.0-3.0 Treatment of pulmonary embolism 2.0-3.0 Prevention of systemic embolism 2.0-3.0 HIGH RISK: Mechanical prosthetic valves 2.5-3.5 Performed By: #### L IP, MDW, TROPHS, PRO, CMP, GFR, ANEU, ADIFF, CBC #### [place] [id number] [place], [place] [address] Capillary blood internationa l normalized ratio (INR)Ordered By: Devyn Samaniego on 01-22-2024 INR Coag (BldC) [Relative time] 1.4 [facility] Comment on above: Critical Value > 4.0 Thin prep Papanicolaou smear with manual screeningOrdered By: Devyn Samaniego on 01-22-2024 Thin prep Papanicolaou smear with manual screening 118 mg/dL 74-106 [facility] Comment on above: MANAGEMENT OF PATIEN T CARE PER NURSING PROTOCOL Whole blood prothrombin time Ordered By: Devyn Samaniego on 01-22-2024 PT Coag (Bld) [Time] 15.2 s 11.7-14.9 [facility] UA DIP, URINE (POC)on 2023 BILIRUBIN UA (POCT) Negative Negative [facility] CLARITY UA (POCT) Clear [facility] COLOR UA (POCT) Yellow [facility] GLUCOSE UA (POCT) Negative Negative mg/dL [facility] Hemoglobin Ql (U) Moderate Abnormal Negative [facility] Interpretation and review of laboratory results Abnormal [facility] KETONE UA (POCT) Negative Negative mg/dL [facility] LEUKOCYTES UA (POCT) Trace Abnormal Negative [facility] NITR[facility]A (POCT[facility] Negative Negative [facility] PH UA (POCT) 5.5 4.5 - 8.0 [facility] Protein Ql (U) 100 mg/dL Abnormal Negative [facility] SPECIFIC GRAVITY UA (POCT) >=1.030 1.005 - 1.030 [facility] UROBILINOGEN UA (POCT) 0.2 Carlita l E.U./dL [facility] Location:[facility], [address], [place], [address] [facility] POINT OF CARE [facility] Laboratory - CoagulationOrde red By: Lisandra Cao on 01-04-2024 INR Coag (Bld) [Relative time] 2.1 {INR} [facility] PT Coag (PPP) [Time] 23.3 s 11.7-14.9 [facility] Basophil percentageOrdered B y: Josesito Miller on 12-31-2023 Chloride [Moles/Vol] 102 mmol/L 98-107 [facility] Glucose [Mass/Vol] 240 mg/dL 74-106 [facility] Comment on above: Glucose result great er than or equal to 200 mg/dLsuggests DIABETES MELLITUS per A.D.A. criteria. Potassium [Moles/Vol] 4.1 mmol/L 3.5-5.1 [facility] Sodium [Moles/Vol] 137 mmol/L 136-145 [facility] Laboratory - Chemistry and C hemistry - challengeOrdered By: Josesito Miller on 12-31-2023 CO2 [Moles/Vol] 24.0 mmol/L 21.0-32.0 [facility] Urea nitrogen/Creatinine [Mass ratio] 24.1 mg/mg 10-20 [facility] Laboratory - CoagulationOrde red By: Josesito Miller on 12-31-2023 INR Coag (Bld) [Relative time] 2.3 {INR} [facility] PT Coag (PPP) [Time] 24.9 s 11.7-14.9 [facility] No Panel InformationOrdered By: Josesito Miller on 12-31-2023 Estimated Creatinine Clearance Calc 39.26 ml/min [facility] Estimated GFR (MDRD) Amer 47 mL/min >60 [facility] Comment on above: GFR Calc Estimated GFR (MDRD) Non-Af Amer 39 mL/min >60 [facility] Comment on above: Non- GFR Calc Serum or plasma calcium alexander urement (mass/volume)Ordered By: Josesito Miller on 12-31-2023 Calcium [Mass/Vol] 8.9 mg/dL 8.5-10.1 [facility] Serum or plasma creatinine m easurement (mass/volume)Ordered By: Josesito Miller on 12-31-2023 Creatinine [Mass/Vol] 1.41 mg/dL 0.55-1.02 [facility] Comment on above: The validity of the calculated GFR & GFRAA in patients over 70 years has not been determined. Clinical correlation is essential. Serum or plasma urea nitroge n measurement (mass/volume)Ordered By: Josesito Miller on 12-31-2023 Urea nitrogen [Mass/Vol] 34 mg/dL 7-18 [facility] Thin prep Papanicolaou smear with manual screeningOrdered By: Josesito Miller on 12-31-2023 Thin prep Papanicolaou smear with manual screening 11 5-15 [facility] Thin prep Papanicolaou smear with manual screening 236 mg/dL 74-106 [facility] Comment on above: MANAGEMENT OF PATIEN T CARE PER NURSING PROTOCOL Absolute lymphocyte countOrd ered By: Kassi Fisher on 12-30-2023 Lymphocytes Auto (Unsp spec) [#/Vol] 1.07 10*3/uL 0.83-4.51 [facility] Automated lymphocyte count a s percentage of total leukocytesOrdered By: Kassi Fisher on 12-30-2023 Lymphocytes/100 WBC Auto (Unsp spec) 13.8 % 19-41 [facility] Basophil percentageOrdered B y: Kassi Fisher on 12-30-2023 Basophils/100 WBC (Bld) 0.5 % 0-1 [facility] [place] Bilirubin [Mass/Vol] 1.00 mg/dL 0.20-1.00 [facility] Comment on above: For patients on eltr ombopag therapy, use of Dimension [place] TBIL is not recommended. Eosinophils/100 WBC (Bld) 0.6 % 0-5 [facility] Hemoglobin (Bld) [Mass/Vol] 11.7 g/dL 12.0-15.0 [facility] Monocytes/100 WBC (Bld) 8.3 % 0-10 [facility] Neutrophils (Bld) [#/Vol] 5.9 10*3/uL 2.0-7.7 [facility] Neutrophils/100 WBC (Bld) 76.2 % 47-70 [facility] Protein [Mass/Vol] 6.6 g/dL 6.4-8.2 [facility] WBC (Bld) [#/Vol] 7.7 10*3/uL 4.4-11.0 [facility] Cytology report of Body flui d Cyto stainOrdered By: Devyn Samaniego on 12-30-2023 Cytology report Cyto stain Doc (Body fld) SEE PATHOLOGY REPORT [facility] Comment on above: Specimen submitted t o Anatomical Pathology Department for testing. Determination of erythrocyte mean corpuscular volume (MCV)Ordered By: Kassi Fisher on 12-30-2023 MCV (RBC) [Entitic vol] 94.6 fL 81-99 [facility] Erythrocyte distribution wid th ratioOrdered By: [facility] Phillip on 12-30-2023 Erythrocyte distribution width (RBC) [Ratio] 12.3 % 11.6-14.6 [facility] Erythrocyte distribution wid th standard deviationOrdered By: [facility] Phillip on 12-30-2023 Erythrocyte distribution width (RBC) [Entitic vol] 42.3 fL 35.1-43.9 [facility] Hematocrit Auto (Bld) [Volum e fraction]Ordered By: Kassi Fisher on 12-30-2023 Hematocrit (Bld) [Volume fraction] 34.9 % 37-47 [facility] Immature granulocytes/100 WB C Auto (Bld)Ordered By: Kassi Fishre on 12-30-2023 Immature granulocytes/100 WBC (Bld) 0.600 % 0.0-0.9 [facility] Comment on above: IG% - Immature Granu locytes (promyelocytes, myelocytes and metamyelocytes) > 1% indicates that a LEFT SHIFT is Present. Laboratory - Chemistry and C hemistry - challengeOrdered By: Kassi Fisher on 12-30-2023 Albumin/Globulin [Mass ratio] 0.7 {ratio} 0.9-2.4 [facility] ALP [Catalytic activity/Vol] 71 U/L 45-117 [facility] ALT [Catalytic activity/Vol] 11 U/L 13-56 [facility] Globulin (S) [Mass/Vol] 3.8 g/dL 2.2-4.2 [facility] Laboratory - Hematology and Cell countsOrdered By: Kassi Fisher on 12-30-2023 MCH (RBC) [Entitic mass] 31.7 pg 27.0-32.0 [facility] MCHC (RBC) [Mass/Vol] 33.5 g/dL 32-36 [facility] Nucleated RBC/100 WBC (Bld) [Ratio] 0 % 0-5 [facility] Platelet mean volume (Bld) [Entitic vol] 10.0 fL 6.2-12.0 [facility] Platelets (Bld) [#/Vol] 114 10*3/uL 150-450 [facility] RBC Auto (Bld) [#/Vol]Ordere d By: Kassi Fisher on 12-30-2023 RBC (Bld) [#/Vol] 3.69 10*6/uL 4.2-5.4 [facility] Thin prep Papanicolaou smear with manual screeningOrdered By: Kassi Fisher on 12-30-2023 Thin prep Papanicolaou smear with manual screening 2.8 g/dL 3.2-5.0 [facility] Thin prep Papanicolaou smear with manual screening 16 U/L 15-37 [facility] Basophil percentageOrdered B y: Abdifatah Lemon on 12-29-2023 Basophil percentage 25-50 SEEN /hpf 0-5 [facility] Bilirubin Test strip Ql (U)O rdered By: Abdifatah Lemon on 12-29-2023 Bilirubin Ql (U) Negative Negative [facility] Culture, urineOrdered By: Salvador Lemon on 12-29-2023 Bacteria identified Cx Nom (U) Presumptive E. coli [facility] Bacteria identified Cx Nom (U) Presumptive E. coli [facility] Ketones Test strip Ql (U)Ord ered By: Abdifatah Lemon on 12-29-2023 Ketones Ql (U) Negative Negative [facility] Laboratory - Chemistry and C hemistry - challengeOrdered By: Abdifatah Lemon on 12-29-2023 Lipase [Catalytic activity/Vol] U/L 13-75 [facility] Comment on above: Please note:LIPASE r evised reference range effective 23. New Lipase methodology. Expected to produce lower values than the previous assay method. NEW Reference Range: 13 - 75 U/L Mucus LM Ql (Urine sed)Order ed By: Abdifatah Lemon on 12-29-2023 Mucus Ql (Urine sed) 0 SEEN /hpf [facility] Nitrite Test strip Ql (U)Ord ered By: Abdifatah Lemon on 12-29-2023 Nitrite Ql (U) Positive Negative [facility] No Panel InformationOrdered By: Abdifatah Lemon on 12-29-2023 Urine RBC 5-10 SEEN /hpf 0-5 [facility] Protein Test strip Ql (U)Ord ered By: Abdifatah Lemon on 12-29-2023 Protein Ql (U) 30 mg/dl Negative [facility] Squamous epithelial cells de tection in urine sediment by light microscopyOrdered By: Abdifatah Lemon on 12-29-2023 Epithelial cells.squamous LM Ql (Urine sed) 0 SEEN /hpf 5-10 [facility] Urine blood detectionOrdered By: Abdifatah Lemon on 12-29-2023 RBC Ql (U) 50 /ul Negative [facility] Urine clarityOrdered By: Jim Lemon on 12-29-2023 Clarity (U) Sl. Cloudy Clear [facility] Urine color determinationOrd ered By: Abdifatah Lemon on 12-29-2023 Color (U) Yellow Yellow [facility] Urine glucose detectionOrder ed By: Abdifatah Lemon on 12-29-2023 Glucose Ql (U) Normal mg/dl Normal [facility] Urine leukocyte esterase det ection by dipstickOrdered By: Abdifatah Lemon on 12-29-2023 Leukocyte esterase Test strip Ql (U) 500 /ul Negative [facility] Urine pHOrdered By: Abdifatah horne on 12-29-2023 pH (U) 6.5 [pH] 5.0 - 8.0 [facility] Urine sediment bacteria coun t by microscopy (number/high power field)Ordered By: Abdifatah Lemon on 12-29-2023 Bacteria LM.HPF (Urine sed) [#/Area] 4 /[HPF] None Seen [facility] Urine specific gravity measu rementOrdered By: Abdifatah Lemon on 12-29-2023 Specific gravity (U) [Rel density] 1.010 1.002-1.030 [facility] Urine urobilinogen measureme ntOrdered By: Abdifatah Lemon on 12-29-2023 Urobilinogen Ql (U) Normal mg/dl Normal [facility] INR in Blood by Coagulation assayOrdered By: Brooke Willingham on 11-09-2023 INR Coag (Bld) [Relative time] 2.1 {INR} [facility] Laboratory - CoagulationOrde red By: Brooke Willingham on 11-09-2023 PT Coag (PPP) [Time] 24.1 s 11.7-14.9 [facility] Absolute lymphocyte countOrd ered By: Freddy Robert on 10-02-2023 Lymphocytes Auto (Unsp spec) [#/Vol] 1.07 10*3/uL 0.83-4.51 [facility] Basophil percentageOrdered B y: Freddy Robert on 10-02-2023 Basophils/100 WBC (Bld) 1.0 % 0-1 [facility] Eosinophils/100 WBC (Bld) 4.9 % 0-5 [facility] Neutrophils (Bld) [#/Vol] 2.4 10*3/uL 2.0-7.7 [facility] Neutrophils/100 WBC (Bld) 59.6 % 47-70 [facility] WBC (Bld) [#/Vol] 4.1 10*3/uL 4.4-11.0 [facility] Blood erythrocytes count (nu mber/volume)Ordered By: Freddyambrose Robert on 10-02-2023 RBC (Bld) [#/Vol] 3.68 10*6/uL 4.2-5.4 [facility] Blood hemoglobin measurement (mass/volume)Ordered By: Freddy Robert on 10-02-2023 Hemoglobin (Bld) [Mass/Vol] 11.8 g/dL 12.0-15.0 [facility] Blood lymphocytes/100 leukoc ytesOrdered By: Freddy Robert on 10-02-2023 Lymphocytes/100 WBC (Bld) 26.2 % 19-41 [facility] Blood monocytes/100 leukocyt esOrdered By: Freddyambrose Robert on 10-02-2023 Monocytes/100 WBC (Bld) 7.6 % 0-10 [facility] Blood platelet mean volumeOr dered By: Freddy Robert on 10-02-2023 Platelet mean volume (Bld) [Entitic vol] 10.3 fL 6.2-12.0 [facility] Determination of erythrocyte mean corpuscular volume (MCV)Ordered By: Freddy Robert on 10-02-2023 MCV (RBC) [Entitic vol] 98.1 fL 81-99 [facility] Hematocrit Auto (Bld) [Volum e fraction]Ordered By: Freddy Robert on 10-02-2023 Hematocrit (Bld) [Volume fraction] 36.1 % 37-47 [facility] Laboratory - Hematology and Cell countsOrdered By: Freddy Robert on 10-02-2023 Erythrocyte distribution width (RBC) [Entitic vol] 46.4 fL 35.1-43.9 [facility] Erythrocyte distribution width (RBC) [Ratio] 12.9 % 11.6-14.6 [facility] Immature granulocytes/100 WBC (Bld) 0.700 % 0.0-0.9 [facility] Comment on above: IG% - Immature Granu locytes (promyelocytes, myelocytes and metamyelocytes) > 1% indicates that a LEFT SHIFT is Present. MCH (RBC) [Entitic mass] 32.1 pg 27.0-32.0 [facility] Nucleated RBC/100 WBC (Bld) [Ratio] 0 % 0-5 [facility] MCHC Auto (RBC) [Mass/Vol]Or dered By: Freddy Robert on 10-02-2023 MCHC (RBC) [Mass/Vol] 32.7 g/dL 32-36 [facility] Platelets bldOrdered By: Freddy Robert on 10-02-2023 Platelets (Bld) [#/Vol] 107 10*3/uL 150-450 [facility] INR in Blood by Coagulation assayOrdered By: Pete Che on 09-01-2023 INR Coag (Bld) [Relative time] 2.5 {INR} [facility] Laboratory - CoagulationOrde red By: Pete Che on 09-01-2023 PT Coag (PPP) [Time] 27.3 s 11.7-14.9 [facility] INR in Blood by Coagulation assayOrdered By: Sharan Chandra on 07-10-2023 INR Coag (Bld) [Relative time] 2.3 {INR} [facility] Laboratory - CoagulationOrde red By: Sharan Chandra on 07-10-2023 PT Coag (PPP) [Time] 25.2 s 11.7-14.9 [facility] INR in Blood by Coagulation assayOrdered By: Sharan Chandra on 05-28-2023 INR Coag (Bld) [Relative time] 3.3 {INR} [facility] Laboratory - CoagulationOrde red By: Sharan Chandra on 05-28-2023 PT Coag (PPP) [Time] 34.1 s 11.7-14.9 [facility] Absolute lymphocyte countOrd ered By: Freddy Robert on 05-21-2023 Lymphocytes Auto (Unsp spec) [#/Vol] 1.76 10*3/uL 0.83-4.51 [facility] Basophil percentageOrdered B y: Freddy Robert on 05-21-2023 Basophils/100 WBC (Bld) 0.7 % 0-1 [facility] Chloride [Moles/Vol] 103 mmol/L 98-107 [facility] Eosinophils/100 WBC (Bld) 2.3 % 0-5 [facility] Glucose [Mass/Vol] 101 mg/dL 74-106 [facility] Comment on above: Fasting Glucose resu lt from 100 to 125 mg/dL suggests IMPAIRED HOMEOSTASIS per A.D.A. criteria. Neutrophils (Bld) [#/Vol] 5.5 10*3/uL 2.0-7.7 [facility] Neutrophils/100 WBC (Bld) 66.2 % 47-70 [facility] Potassium [Moles/Vol] 4.2 mmol/L 3.5-5.1 [facility] Sodium [Moles/Vol] 138 mmol/L 136-145 [facility] WBC (Bld) [#/Vol] 8.3 10*3/uL 4.4-11.0 [facility] Blood erythrocytes count (nu mber/volume)Ordered By: Freddy Robert on 05-21-2023 RBC (Bld) [#/Vol] 4.49 10*6/uL 4.2-5.4 [facility] Blood hemoglobin measurement (mass/volume)Ordered By: Freddy Robert on 05-21-2023 Hemoglobin (Bld) [Mass/Vol] 14.5 g/dL 12.0-15.0 [facility] Blood lymphocytes/100 leukoc ytesOrdered By: Freddy Robert on 05-21-2023 Lymphocytes/100 WBC (Bld) 21.2 % 19-41 [facility] Blood monocytes/100 leukocyt esOrdered By: Freddy Robert on 05-21-2023 Monocytes/100 WBC (Bld) 8.4 % 0-10 [facility] Blood platelet mean volumeOr dered By: Freddy Robert on 05-21-2023 Platelet mean volume (Bld) [Entitic vol] 9.5 fL 6.2-12.0 [facility] Determination of erythrocyte mean corpuscular volume (MCV)Ordered By: Freddy Robert on 05-21-2023 MCV (RBC) [Entitic vol] 97.8 fL 81-99 [facility] Erythrocyte sedimentation ra teOrdered By: Freddy Robert on 05-21-2023 ESR (Bld) [Velocity] 3 mm/h 0-30 [facility] Hematocrit Auto (Bld) [Volum e fraction]Ordered By: Freddy Robert on 05-21-2023 Hematocrit (Bld) [Volume fraction] 43.9 % 37-47 [facility] Laboratory - Chemistry and C hemistry - challengeOrdered By: Freddyambrose Robert on 05-21-2023 CO2 [Moles/Vol] 30.0 mmol/L 21.0-32.0 [facility] Urea nitrogen/Creatinine [Mass ratio] 20.2 mg/mg 10-20 [facility] Laboratory - Hematology and Cell countsOrdered By: Freddyambrose Robert on 05-21-2023 Erythrocyte distribution width (RBC) [Entitic vol] 44.8 fL 35.1-43.9 [facility] Erythrocyte distribution width (RBC) [Ratio] 12.4 % 11.6-14.6 [facility] Immature granulocytes/100 WBC (Bld) 1.200 % 0.0-0.9 [facility] Comment on above: IG% - Immature Granu locytes (promyelocytes, myelocytes and metamyelocytes) > 1% indicates that a LEFT SHIFT is Present. MCH (RBC) [Entitic mass] 32.3 pg 27.0-32.0 [facility] Nucleated RBC/100 WBC (Bld) [Ratio] 0 % 0-5 [facility] Auto (RBC) [Mass/Vol]Or dered By: Freddy Robert on 05-21-2023 MCHC (RBC) [Mass/Vol] 33.0 g/dL 32-36 [facility] No Panel InformationOrdered By: Freddy Robert on 05-21-2023 Estimated Creatinine Clearance Calc 46.42 ml/min [facility] Estimated GFR (MDRD) Amer 66 mL/min >60 [facility] Comment on above: GFR Calc Estimated GFR (MDRD) Non-Af Amer 55 mL/min >60 [facility] Comment on above: Non- GFR Calc Platelets bldOrdered By: Freddy Robert on 05-21-2023 Platelets (Bld) [#/Vol] 155 10*3/uL 150-450 [facility] Serum or plasma calcium alexander urement (mass/volume)Ordered By: Freddy Robert on 05-21-2023 Calcium [Mass/Vol] 9.3 mg/dL 8.5-10.1 [facility] Serum or plasma creatinine m easurement (mass/volume)Ordered By: Freddy Robert on 05-21-2023 Creatinine [Mass/Vol] 1.04 mg/dL 0.55-1.02 [facility] Comment on above: The validity of the calculated GFR & GFRAA in patients over 70 years has not been determined. Clinical correlation is essential. Serum or plasma urea nitroge n measurement (mass/volume)Ordered By: Freddy Robert on 05-21-2023 Urea nitrogen [Mass/Vol] 21 mg/dL 7-18 [facility] Thin prep Papanicolaou smear with manual screeningOrdered By: Freddy Robert on 05-21-2023 Thin prep Papanicolaou smear with manual screening 5 5-15 [facility] CBC W Auto Differential pane l (Bld)on 03-31-2023 Basophils (Bld) [#/Vol] 0.08 10*3/uL <0.11 k/uL [facility] Basophils/100 WBC (Bld) 1.2 % [facility] Differential cell count method Nom (Bld) Auto [facility] Eosinophils (Bld) [#/Vol] 0.32 10*3/uL <0.46 k/uL [facility] Eosinophils/100 WBC (Bld) 4.6 % [facility] Erythrocyte distribution width (RBC) [Ratio] 12.4 % 11.5 - 15.0 % [facility] Hematocrit (Bld) [Volume fraction] 41.7 % 36.0 - 46.0 % [facility] Hemoglobin (Bld) [Mass/Vol] 13.1 g/dL 11.5 - 15.5 g/dL [facility] Immature granulocytes (Bld) [#/Vol] 0.06 10*3/uL <0.10 k/uL [facility] Immature granulocytes/100 WBC (Bld) 0.9 % [facility] Lymphocytes (Bld) [#/Vol] 1.63 10*3/uL 1.00 - 4.00 k/uL [facility] Lymphocytes/100 WBC (Bld) 23.5 % [facility] MCH (RBC) [Entitic mass] 32.1 pg 26. 0 - 34.0 pg [facility] MCHC (RBC) [Mass/Vol] 31.4 g/dL 30.5 - 36.0 g/dL [facility] MCV (RBC) [Entitic vol] 102.2 fL High 80.0 - 100.0 fL [facility] Monocytes (Bld) [#/Vol] 0.42 10*3/uL <0.87 k/uL [facility] Monocytes/100 WBC (Bld) 6.1 % [facility] Neutrophils (Bld) [#/Vol] 4.43 10*3/uL 1.45 - 7.50 k/uL [facility] Neutrophils/100 WBC (Bld) 63.7 % [facility] Nucleated RBC (Bld) [#/Vol] <0.01 k/uL [facility] Nucleated RBC/100 WBC (Bld) [Ratio] 0.0 /100 WBC [facility] Platelet mean volume (Bld) [Entitic vol] 9.7 fL 9.0 - 12.7 fL [facility] Platelets (Bld) [#/Vol] 161 10*3/uL 150 - 400 k/uL [facility] RBC (Bld) [#/Vol] 4.08 10*6/uL 3.90 - 5.2 0 m/uL [facility] WBC (Bld) [#/Vol] 6.94 10*3/uL 3.70 - 11. 00 k/uL [facility] HbA1c (Bld)on 03-31-2023 Average glucose Estimated from glycated hemoglobin (Bld) [Mass/Vol] 143 mg/dL [facility] HbA1c (Bld) [Mass fraction] 6.6 % High 4.3 - 5.6 % [facility] INR in Blood by Coagulation assayOrdered By: Sharan Chandra on 03-31-2023 INR Coag (Bld) [Relative time] 2.2 {INR} [facility] Laboratory - CoagulationOrde red By: Sharan Chandra on 03-31-2023 PT Coag (PPP) [Time] 24.2 s 11.7-14.9 [facility] Absolute lymphocyte countOrd ered By: Nedra Rivero on 03-17-2023 Lymphocytes Auto (Unsp spec) [#/Vol] 1.13 10*3/uL 0.83-4.51 [facility] Amorphous sediment detection in urine sediment by light microscopyOrdered By: Nedra Rivero on 03-17-2023 Amorphous sediment LM Ql (Urine sed) 1+ URATE [facility] Basophil percentageOrdered B y: Nedra Rivero on 03-17-2023 Basophils/100 WBC (Bld) 0.4 % 0-1 [facility] Chloride [Moles/Vol] 103 mmol/L 98-107 [facility] Eosinophils/100 WBC (Bld) 1.2 % 0-5 [facility] Glucose [Mass/Vol] 165 mg/dL 74-106 [facility] Comment on above: Fasting Glucose resu lt greater than or equal to 126 mg/dL suggests DIABETES MELLITUS per A.D.A. criteria. Lactate [Moles/Vol] 1.0 mmol/L 0.4-2.0 [facility] Neutrophils (Bld) [#/Vol] 7.2 10*3/uL 2.0-7.7 [facility] Neutrophils/100 WBC (Bld) 78.4 % 47-70 [facility] Potassium [Moles/Vol] 3.8 mmol/L 3.5-5.1 [facility] Sodium [Moles/Vol] 136 mmol/L 136-145 [facility] WBC (Bld) [#/Vol] 9.2 10*3/uL 4.4-11.0 [facility] Basophil percentage >100 SEEN /hpf 0-5 [facility] Bilirubin Test strip Ql (U)O rdered By: Nedra Rivero on 03-17-2023 Bilirubin Ql (U) Negative Negative [facility] Blood erythrocytes count (nu mber/volume)Ordered By: Nedra Rivero on 03-17-2023 RBC (Bld) [#/Vol] 3.99 10*6/uL 4.2-5.4 [facility] Blood hemoglobin measurement (mass/volume)Ordered By: Nedra Rivero on 03-17-2023 Hemoglobin (Bld) [Mass/Vol] 13.0 g/dL 12.0-15.0 [facility] Blood lymphocytes/100 leukoc ytesOrdered By: Nedra Rivero on 03-17-2023 Lymphocytes/100 WBC (Bld) 12.3 % 19-41 [facility] Blood monocytes/100 leukocyt esOrdered By: Nedra Rivero on 03-17-2023 Monocytes/100 WBC (Bld) 7.4 % 0-10 [facility] Blood platelet mean volumeOr dered By: Nedra Rivero on 03-17-2023 Platelet mean volume (Bld) [Entitic vol] 9.4 fL 6.2-12.0 [facility] Determination of erythrocyte mean corpuscular volume (MCV)Ordered By: Nedra Rivero on 03-17-2023 MCV (RBC) [Entitic vol] 97.5 fL 81-99 [facility] Hematocrit Auto (Bld) [Volum e fraction]Ordered By: Nedra Rivero on 03-17-2023 Hematocrit (Bld) [Volume fraction] 38.9 % 37-47 [facility] Influenza virus A and B and SARS-CoV-2 (COVID-19) Ag panel - Upper respiratory specimOrdered By: Nedra Rivero on 03-17-2023 SARS-CoV-2 (COVID-19) RNA RUSSELL+probe Ql (Resp) [facility] Ketones Test strip Ql (U)Ord ered By: Nedra Rivero on 03-17-2023 Ketones Ql (U) Negative Negative [facility] Laboratory - Chemistry and C hemistry - challengeOrdered By: Nedra Rivero on 03-17-2023 CO2 [Moles/Vol] 25.0 mmol/L 21.0-32.0 [facility] Urea nitrogen/Creatinine [Mass ratio] 14.0 mg/mg 10-20 [facility] Laboratory - Hematology and Cell countsOrdered By: Nedra Rivero on 03-17-2023 Erythrocyte distribution width (RBC) [Entitic vol] 44.5 fL 35.1-43.9 [facility] Erythrocyte distribution width (RBC) [Ratio] 12.3 % 11.6-14.6 [facility] Immature granulocytes/100 WBC (Bld) 0.300 % 0.0-0.9 [facility] Comment on above: IG% - Immature Granu locytes (promyelocytes, myelocytes and metamyelocytes) > 1% indicates that a LEFT SHIFT is Present. MCH (RBC) [Entitic mass] 32.6 pg 27.0-32.0 [facility] Nucleated RBC/100 WBC (Bld) [Ratio] 0 % 0-5 [facility] Laboratory - Microbiology an d Antimicrobial susceptibilityOrdered By: Nedra Rivero on 03-17-2023 Bacteria identified Cx Nom (Bld) No growth in 5 days. [facility] MCHC Auto (RBC) [Mass/Vol]Or dered By: Nedra Rivero on 03-17-2023 MCHC (RBC) [Mass/Vol] 33.4 g/dL 32-36 [facility] Mucus LM Ql (Urine sed)Order ed By: Nedra Rivero on 03-17-2023 Mucus Ql (Urine sed) 0 SEEN /hpf [facility] Nitrite Test strip Ql (U)Ord ered By: Nedra Rivero on 03-17-2023 Nitrite Ql (U) Positive Negative [facility] No Panel InformationOrdered By: Nedra Rivero on 03-17-2023 Estimated Creatinine Clearance Calc 43.50 ml/min [facility] Estimated GFR (MDRD) Amer 64 mL/min >60 [facility] Comment on above: GFR Calc Estimated GFR (MDRD) Non-Af Amer 53 mL/min >60 [facility] Comment on above: Non- GFR Calc Platelets bldOrdered By: Marce Rivero on 03-17-2023 Platelets (Bld) [#/Vol] 136 10*3/uL 150-450 [facility] Protein Test strip Ql (U)Ord ered By: Nedra Rivero on 03-17-2023 Protein Ql (U) 100 mg/dl Negative [facility] Serum or plasma calcium alexander urement (mass/volume)Ordered By: Nedra Rivero on 03-17-2023 Calcium [Mass/Vol] 8.9 mg/dL 8.5-10.1 [facility] Serum or plasma creatinine m easurement (mass/volume)Ordered By: Nedra Rivero on 03-17-2023 Creatinine [Mass/Vol] 1.07 mg/dL 0.55-1.02 [facility] Comment on above: The validity of the calculated GFR & GFRAA in patients over 70 years has not been determined. Clinical correlation is essential. Serum or plasma urea nitroge n measurement (mass/volume)Ordered By: Nedra Rivero on 03-17-2023 Urea nitrogen [Mass/Vol] 15 mg/dL 7-18 [facility] Squamous epithelial cells de tection in urine sediment by light microscopyOrdered By: Nedra Rivero on 03-17-2023 Epithelial cells.squamous LM Ql (Urine sed) 0-5 SEEN /hpf 5-10 [facility] Thin prep Papanicolaou smear with manual screeningOrdered By: Nedra Rivero on 03-17-2023 Thin prep Papanicolaou smear with manual screening 8 5-15 [facility] Urine blood detectionOrdered By: Nedra Rivero on 03-17-2023 RBC Ql (U) 250 /ul Negative [facility] RBC Ql (U) 25-50 SEEN /hpf 0-5 [facility] Urine clarityOrdered By: Marce Rivero on 03-17-2023 Clarity (U) Cloudy Clear [facility] Urine color determinationOrd ered By: Nedra Rivero on 03-17-2023 Color (U) Yellow Yellow [facility] Urine glucose detectionOrder ed By: Nedra Rivero on 03-17-2023 Glucose Ql (U) Normal mg/dl Normal [facility] Urine leukocyte esterase det ection by dipstickOrdered By: Nedra Rivero on 03-17-2023 Leukocyte esterase Test strip Ql (U) 500 /ul Negative [facility] Urine pHOrdered By: Nedra Un gur on 03-17-2023 pH (U) 5.0 [pH] 5.0 - 8.0 [facility] Urine sediment bacteria coun t by microscopy (number/high power field)Ordered By: Nedra Rivero on 03-17-2023 Bacteria LM.HPF (Urine sed) [#/Area] 1 /[HPF] None Seen [facility] Urine specific gravity measu rementOrdered By: Nedra Rivero on 03-17-2023 Specific gravity (U) [Rel density] 1.015 1.002-1.030 [facility] Urobilinogen Auto test strip Ql (U)Ordered By: Nedra Rivero on 03-17-2023 Urobilinogen Ql (U) Normal mg/dl Normal [facility] UA DIP, URINE (POC)on 2022 BILIRUBIN UA (POCT) Negative Negative [facility] CLARITY UA (POCT) Clear [facility] COLOR UA (POCT) Yellow [facility] GLUCOSE UA (POCT) Negative Negative mg/dL [facility] HEMOGLOBIN/BLOOD UA (POCT) Large Abnormal Negative [facility] KETONE UA (POCT) Negative Negative mg/dL [facility] LEUKOCYTES UA (POCT) Large Abnormal Negative [facility] NITRITE UA (POCT) Negative Negative [facility] PH UA (POCT) 6.0 4.5 - 8.0 [facility] Protein Ql (U) 100 mg/dL Abnormal Negative mg/dL [facility] SPECIFIC GRAVITY UA (POCT) 1.020 1.005 - 1.030 [facility] UROBILINOGEN UA (POCT) 0.2 E.U./dL Carlita l E.U./dL [facility] INR in Blood by Coagulation assayOrdered By: Dr. Chandra on 12-02-2022 INR Coag (Bld) [Relative time] 2.3 {INR} [facility] Laboratory - CoagulationOrde red By: Dr. Chandra on 12-02-2022 PT Coag (PPP) [Time] 24.9 s 11.7-14.9 [facility] INR in Blood by Coagulation assayOrdered By: Dr. Chandra on 09-25-2022 INR Coag (Bld) [Relative time] 2.6 {INR} [facility] Laboratory - CoagulationOrde red By: Dr. hCandra on 09-25-2022 PT Coag (PPP) [Time] 27.3 s 11.7-14.9 [facility] INR in Blood by Coagulation assayOrdered By: Dr. Chandra on 09-02-2022 INR Coag (Bld) [Relative time] 2.7 {INR} [facility] Laboratory - CoagulationOrde red By: Dr. Chandra on 09-02-2022 PT Coag (PPP) [Time] 28.6 s 11.7-14.9 [facility] Absolute lymphocyte counton 07-31-2022 Lymphocytes Auto (Unsp spec) [#/Vol] 1.66 10*3/uL 0.83-4.51 [facility] Work Phone: Basophil percentageon 2021 Basophil percentage 0-5 SEEN /hpf 0-5 [facility] Work Phone: Basophils/100 WBC (Bld) 0.9 % 0-1 [facility] Work Phone: Chloride [Moles/Vol] 106 mmol/L 98-107 [facility] Work Phone: Eosinophils/100 WBC (Bld) 3.7 % 0-5 [facility] Work Phone: Glucose [Mass/Vol] 144 mg/dL 74-106 [facility] Work Phone: Comment on above: Fasting Glucose resu lt greater than or equal to 126 mg/dL suggests DIABETES MELLITUS per A.D.A. criteria. Neutrophils (Bld) [#/Vol] 3.5 10*3/uL 2.0-7.7 [facility] Work Phone: Neutrophils/100 WBC (Bld) 59.6 % 47-70 [facility] Work Phone: Potassium [Moles/Vol] 4.0 mmol/L 3.5-5.1 [facility] Work Phone: Sodium [Moles/Vol] 140 mmol/L 136-145 [facility] Work Phone: WBC (Bld) [#/Vol] 5.9 10*3/uL 4.4-11.0 [facility] Work Phone: Bilirubin Test strip Ql (U)o n 07-31-2022 Bilirubin Ql (U) Negative Negative [facility] Work Phone: [phone] Blood erythrocytes count (nu mber/volume)on 07-31-2022 RBC (Bld) [#/Vol] 4.46 10*6/uL 4.2-5.4 [facility] Work Phone: [phone] Blood hemoglobin measurement (mass/volume)on 07-31-2022 Hemoglobin (Bld) [Mass/Vol] 14.4 g/dL 12.0-15.0 [facility] Work Phone: [phone] Blood lymphocytes/100 leukoc yteson 07-31-2022 Lymphocytes/100 WBC (Bld) 28.3 % 19-41 [facility] Work Phone: [phone] Blood monocytes/100 leukocyt eson 07-31-2022 Monocytes/100 WBC (Bld) 7.2 % 0-10 [facility] Work Phone: Blood platelet mean volumeon 07-31-2022 Platelet mean volume (Bld) [Entitic vol] 9.9 fL 6.2-12.0 [facility] Work Phone: [phone] Determination of erythrocyte mean corpuscular volume (MCV)on 07-31-2022 MCV (RBC) [Entitic vol] 99.1 fL 81-99 [facility] Work Phone: Hematocrit Auto (Bld) [Volum e fraction]on 07-31-2022 Hematocrit (Bld) [Volume fraction] 44.2 % 37-47 [facility] Work Phone: INR in Blood by Coagulation assayon 07-31-2022 INR Coag (Bld) [Relative time] 3.0 {INR} [facility] Work Phone: Ketones Test strip Ql (U)on 07-31-2022 Ketones Ql (U) Negative Negative [facility] Work Phone: [phone] Laboratory - Chemistry and C hemistry - challengeon 07-31-2022 CO2 [Moles/Vol] 27.0 mmol/L 21.0-32.0 [facility] Work Phone: [phone] Natriuretic peptide B (Bld) [Mass/Vol] 104.2 pg/mL 0-100 [facility] Work Phone: [phone] Urea nitrogen/Creatinine [Mass ratio] 13.9 mg/mg 10-20 [facility] Work Phone: [phone] Laboratory - Coagulationon 1 PT Coag (PPP) [Time] 30.4 s 11.7-14.9 [facility] Work Phone: [phone] Laboratory - Hematology and Cell countson 07-31-2022 Erythrocyte distribution width (RBC) [Entitic vol] 45.9 fL 35.1-43.9 [facility] Work Phone: [phone] Erythrocyte distribution width (RBC) [Ratio] 12.6 % 11.6-14.6 [facility] Work Phone: [phone] Immature granulocytes/100 WBC (Bld) 0.300 % 0.0-0.9 [facility] Work Phone: [phone] Comment on above: IG% - Immature Granu locytes (promyelocytes, myelocytes and metamyelocytes) > 1% indicates that a LEFT SHIFT is Present. MCH (RBC) [Entitic mass] 32.3 pg 27.0-32.0 [facility] Work Phone: [phone] Nucleated RBC/100 WBC (Bld) [Ratio] 0 % 0-5 [facility] Work Phone: [phone] MCHC Auto (RBC) [Mass/Vol]on 07-31-2022 MCHC (RBC) [Mass/Vol] 32.6 g/dL 32-36 [facility] Work Phone: [phone] Mucus LM Ql (Urine sed)on Mucus Ql (Urine sed) RARE /hpf [facility] Work Phone: Nitrite Test strip Ql (U)on 07-31-2022 Nitrite Ql (U) Negative Negative [facility] Work Phone: No Panel Informationon 07-31 Troponin I High Sensitivity 12 pg/mL 3.0-54.0 [facility] Work Phone: Comment on above: Please Note: New [employer] t Units and Gender Specific Reference Ranges. For more information see Policy Stat Procedure [place] High Sensitivity Troponin (TNIH) and attachments. Urine Transitional Epithelial Cells 0-5 SEEN /hpf 0-5 [facility] Work Phone: Estimated Creatinine Clearance Calc 48.55 ml/min [facility] Work Phone: Estimated GFR (MDRD) Amer 69 mL/min >60 [facility] Work Phone: Comment on above: GFR Calc Estimated GFR (MDRD) Non-Af Amer 57 mL/min >60 [facility] Work Phone: Comment on above: Non- GFR Calc Platelets bldon 07-31-2022 Platelets (Bld) [#/Vol] 152 10*3/uL 150-450 [facility] Work Phone: Protein Test strip Ql (U)on 07-31-2022 Protein Ql (U) Negative Negative [facility] Work Phone: [phone] Serum or plasma calcium alexander urement (mass/volume)on 07-31-2022 Calcium [Mass/Vol] 9.9 mg/dL 8.5-10.1 oste [facility] Work Phone: [phone] Serum or plasma creatinine m easurement (mass/volume)on 07-31-2022 Creatinine [Mass/Vol] 1.01 mg/dL 0.55-1.02 [facility] Work Phone: Comment on above: The validity of the calculated GFR & GFRAA in patients over 70 years has not been determined. Clinical correlation is essential. Serum or plasma urea nitroge n measurement (mass/volume)on 07-31-2022 Urea nitrogen [Mass/Vol] 14 mg/dL 7-18 [facility] Work Phone: Squamous epithelial cells de tection in urine sediment by light microscopyon 07-31-2022 Epithelial cells.squamous LM Ql (Urine sed) 0 SEEN /hpf 5-10 [facility] Work Phone: Thin prep Papanicolaou smear with manual screeningon 07-31-2022 Thin prep Papanicolaou smear with manual screening 7 5-15 [facility] Work Phone: Urine blood detectionon -0 RBC Ql (U) Negative Negative [facility] Work Phone: [phone] RBC Ql (U) 0 SEEN /hpf 0-5 [facility] Work Phone: Urine clarityon 07-31-2022 Clarity (U) Sl. Cloudy Clear [facility] Work Phone: Urine color determinationon 07-31-2022 Color (U) Yellow Yellow [facility] Work Phone: Urine glucose detectionon Glucose Ql (U) Normal mg/dl Normal [facility] Work Phone: Urine leukocyte esterase det ection by dipstickon 07-31-2022 Leukocyte esterase Test strip Ql (U) 500 /ul Negative [facility] Work Phone: Urine pHon 07-31-2022 pH (U) 5.0 [pH] 5.0 - 8.0 [facility] Work Phone: Urine sediment bacteria coun t by microscopy (number/high power field)on 07-31-2022 Bacteria LM.HPF (Urine sed) [#/Area] RARE /hpf None Seen [facility] Work Phone: Urine specific gravity measu rementon 07-31-2022 Specific gravity (U) [Rel density] 1.015 1.002-1.030 [facility] Work Phone: Urobilinogen Auto test strip Ql (U)on 07-31-2022 Urobilinogen Ql (U) Normal mg/dl Normal [facility] Work Phone: Absolute lymphocyte counton 06-19-2022 Lymphocytes Auto (Unsp spec) [#/Vol] 0.97 10*3/uL 0.83-4.51 [facility] Work Phone: Basophil percentageon 2021 Basophil percentage 3.1 mg/dL 2.5-4.9 [facility] Work Phone: Basophils/100 WBC (Bld) 1.2 % 0-1 [facility] Work Phone: Chloride [Moles/Vol] 106 mmol/L 98-107 [facility] [facility] Work Phone: Eosinophils/100 WBC (Bld) 2.4 % 0-5 [facility] Work Phone: Glucose [Mass/Vol] 103 mg/dL 74-106 [facility] Work Phone: Comment on above: Fasting Glucose resu lt from 100 to 125 mg/dL suggests IMPAIRED HOMEOSTASIS per A.D.A. criteria. Neutrophils (Bld) [#/Vol] 2.5 10*3/uL 2.0-7.7 [facility] Work Phone: Neutrophils/100 WBC (Bld) 60.3 % 47-70 [facility] Work Phone: Potassium [Moles/Vol] 4.4 mmol/L 3.5-5.1 [facility] Work Phone: Sodium [Moles/Vol] 138 mmol/L 136-145 [facility] Work Phone: WBC (Bld) [#/Vol] 4.2 10*3/uL 4.4-11.0 [facility] Work Phone: Blood erythrocytes count (nu mber/volume)on 06-19-2022 RBC (Bld) [#/Vol] 3.59 10*6/uL 4.2-5.4 [facility] Work Phone: Blood hemoglobin measurement (mass/volume)on 06-19-2022 Hemoglobin (Bld) [Mass/Vol] 12.0 g/dL 12.0-15.0 [facility] Work Phone: [phone] Blood lymphocytes/100 leukoc yteson 06-19-2022 Lymphocytes/100 WBC (Bld) 23.2 % 19-41 [facility] Work Phone: [phone] Blood monocytes/100 leukocyt eson 06-19-2022 Monocytes/100 WBC (Bld) 12.4 % 0-10 [facility] Work Phone: [phone] Blood platelet mean volumeon 06-19-2022 Platelet mean volume (Bld) [Entitic vol] 9.9 fL 6.2-12.0 [facility] Work Phone: [phone] Determination of erythrocyte mean corpuscular volume (MCV)on 06-19-2022 MCV (RBC) [Entitic vol] 98.1 fL 81-99 [facility] Work Phone: [phone] Glucose Glucometer (dC) [M ass/Vol]on 06-19-2022 Glucose [Mass/Vol] 99 mg/dL 74-106 [facility] Work Phone: [phone] Comment on above: MANAGEMENT OF PATIEN T CARE PER NURSING PROTOCOL Hematocrit Auto (Bld) [Volum e fraction]on 06-19-2022 Hematocrit (Bld) [Volume fraction] 35.2 % 37-47 [facility] Work Phone: [phone] Laboratory - Chemistry and C hemistry - challengeon 06-19-2022 CO2 [Moles/Vol] 29.0 mmol/L 21.0-32.0 [facility] Work Phone: [phone] Magnesium [Mass/Vol] 2.1 mg/dL 1.6-2.6 [facility] Work Phone: [phone] Urea nitrogen/Creatinine [Mass ratio] 27.5 mg/mg 10-20 [facility] Work Phone: [phone] Laboratory - Hematology and Cell countson 06-19-2022 Erythrocyte distribution width (RBC) [Entitic vol] 47.4 fL 35.1-43.9 [facility] Work Phone: [phone] Erythrocyte distribution width (RBC) [Ratio] 13.2 % 11.6-14.6 [facility] Work Phone: [phone] Immature granulocytes/100 WBC (Bld) 0.500 % 0.0-0.9 [facility] Work Phone: [phone] Comment on above: IG% - Immature Granu locytes (promyelocytes, myelocytes and metamyelocytes) > 1% indicates that a LEFT SHIFT is Present. MCH (RBC) [Entitic mass] 33.4 pg 27.0-32.0 [facility] Work Phone: [phone] Nucleated RBC/100 WBC (Bld) [Ratio] 0 % 0-5 [facility] Work Phone: [phone] MCHC Auto (RBC) [Mass/Vol]on 06-19-2022 MCHC (RBC) [Mass/Vol] 34.1 g/dL 32-36 [facility] Work Phone: [phone] No Panel Informationon 06-19 Estimated Creatinine Clearance Calc 53.88 ml/min [facility] Work Phone: [phone] Estimated GFR (MDRD) Amer 78 mL/min >60 [facility] Work Phone: [phone] Comment on above: GFR Calc Estimated GFR (MDRD) Non-Af Amer 64 mL/min >60 [facility] Work Phone: [phone] Comment on above: Non- GFR Calc Platelets bldon 06-19-2022 Platelets (Bld) [#/Vol] 109 10*3/uL 150-450 [facility] Work Phone: [phone] Serum or plasma calcium alexander urement (mass/volume)on 06-19-2022 Calcium [Mass/Vol] 8.2 mg/dL 8.5-10.1 [facility] Work Phone: [phone] Serum or plasma creatinine m easurement (mass/volume)on 06-19-2022 Creatinine [Mass/Vol] 0.91 mg/dL 0.55-1.02 [facility] Work Phone: [phone] Comment on above: The validity of the calculated GFR & GFRAA in patients over 70 years has not been determined. Clinical correlation is essential. Serum or plasma urea nitroge n measurement (mass/volume)on 06-19-2022 Urea nitrogen [Mass/Vol] 25 mg/dL 7-18 [facility] Work Phone: [phone] Thin prep Papanicolaou smear with manual screeningon 06-19-2022 Thin prep Papanicolaou smear with manual screening 3 5-15 [facility] Work Phone: [phone] Absolute lymphocyte counton 06-18-2022 Lymphocytes Auto (Unsp spec) [#/Vol] 0.74 10*3/uL 0.83-4.51 [facility] Work Phone: [phone] Basophil percentageon 2021 Bilirubin [Mass/Vol] 0.70 mg/dL 0.20-1.00 [facility] Work Phone: [phone] Comment on above: For patients on eltr ombopag therapy, use of Dimension [place] TBIL is not recommended. Cholesterol [Mass/Vol] 125 mg/dL <200 [facility] Work Phone: [phone] Comment on above: <200 mg/dL Desirable 200-240 mg/dL Borderline >240 mg/dL High Risk Protein [Mass/Vol] 6.5 g/dL 6.4-8.2 [facility] Work Phone: [phone] Triglyceride [Mass/Vol] 101 mg/dL <199 [facility] Work Phone: [phone] Comment on above: The drugs N-Acetylcy steine and Metamizole may falsely depress this assay.Serum Triglycerides Reference Interval Normal <150 mg/dL Borderline high 150 - 199 mg/dL High 200 - 499 mg/dL Very High > or = 500 mg/dL Basophil percentage 0-5 SEEN /hpf 0-5 [facility] Work Phone: [phone] Basophils/100 WBC (Bld) 0.5 % 0-1 [facility] Work Phone: [phone] Bilirubin [Mass/Vol] 0.80 mg/dL 0.20-1.00 [facility] Work Phone: Comment on above: For patients on eltr ombopag therapy, use of Dimension [place] TBIL is not recommended. Chloride [Moles/Vol] 101 mmol/L 98-107 [facility] Work Phone: Eosinophils/100 WBC (Bld) 0.2 % 0-5 [facility] Work Phone: Glucose [Mass/Vol] 144 mg/dL 74-106 [facility] Work Phone: Comment on above: Fasting Glucose resu lt greater than or equal to 126 mg/dL suggests DIABETES MELLITUS per A.D.A. criteria. Neutrophils (Bld) [#/Vol] 5.1 10*3/uL 2.0-7.7 [facility] Work Phone: Neutrophils/100 WBC (Bld) 76.6 % 47-70 [facility] Work Phone: Potassium [Moles/Vol] 3.4 mmol/L 3.5-5.1 [facility] Work Phone: Protein [Mass/Vol] 7.2 g/dL 6.4-8.2 [facility] Work Phone: Sodium [Moles/Vol] 135 mmol/L 136-145 [facility] Work Phone: WBC (Bld) [#/Vol] 6.6 10*3/uL 4.4-11.0 [facility] Work Phone: Bilirubin Test strip Ql (U)o n 06-18-2022 Bilirubin Ql (U) Negative Negative [facility] Work Phone: Blood erythrocytes count (nu mber/volume)on 06-18-2022 RBC (Bld) [#/Vol] 4.05 10*6/uL 4.2-5.4 [facility] Work Phone: Blood hemoglobin measurement (mass/volume)on 06-18-2022 Hemoglobin (Bld) [Mass/Vol] 13.3 g/dL 12.0-15.0 [facility] Work Phone: [phone] Blood lymphocytes/100 leukoc yteson 06-18-2022 Lymphocytes/100 WBC (Bld) 11.2 % 19-41 [facility] Work Phone: [phone] Blood monocytes/100 leukocyt eson 06-18-2022 Monocytes/100 WBC (Bld) 10.9 % 0-10 [facility] Work Phone: [phone] Blood platelet mean volumeon 06-18-2022 Platelet mean volume (Bld) [Entitic vol] 9.5 fL 6.2-12.0 [facility] Work Phone: [phone] Determination of erythrocyte mean corpuscular volume (MCV)on 06-18-2022 MCV (RBC) [Entitic vol] 98.0 fL 81-99 [facility] Work Phone: [phone] Hematocrit Auto (Bld) [Volum e fraction]on 06-18-2022 Hematocrit (Bld) [Volume fraction] 39.7 % 37-47 [facility] Work Phone: INR in Blood by Coagulation assayon 06-18-2022 INR Coag (Bld) [Relative time] 2.0 {INR} [facility] Work Phone: [phone] INR Coag (Bld) [Relative time] 1.8 {INR} [facility] Work Phone: [phone] Ketones Test strip Ql (U)on 06-18-2022 Ketones Ql (U) Negative Negative [facility] Work Phone: [phone] Laboratory - Chemistry and C hemistry - challengeon 06-18-2022 ALP [Catalytic activity/Vol] 57 U/L 45-117 [facility] Work Phone: [phone] ALT [Catalytic activity/Vol] 20 U/L 13-56 [facility] Work Phone: [phone] Globulin (S) [Mass/Vol] 3.6 g/dL 2.2-4.2 [facility] Work Phone: [phone] ALP [Catalytic activity/Vol] 66 U/L 45-117 [facility] Work Phone: ALT [Catalytic activity/Vol] 19 U/L 13-56 [facility] Work Phone: CO2 [Moles/Vol] 26.0 mmol/L 21.0-32.0 [facility] Work Phone: [phone] Globulin (S) [Mass/Vol] 3.8 g/dL 2.2-4.2 [facility] Work Phone: [phone] Magnesium [Mass/Vol] 1.1 mg/dL 1.6-2.6 [facility] Work Phone: Urea nitrogen/Creatinine [Mass ratio] 13.3 mg/mg 10-20 [facility] Work Phone: Natriuretic peptide B (Bld) [Mass/Vol] 136.6 pg/mL 0-100 [facility] Work Phone: Laboratory - Coagulationon 0 06-18-2022 PT Coag (PPP) [Time] 22.1 s 11.7-14.9 [facility] Work Phone: PT Coag (PPP) [Time] 20.8 s 11.7-14.9 [facility] Work Phone: Laboratory - Hematology and Cell countson 06-18-2022 Erythrocyte distribution width (RBC) [Entitic vol] 47.7 fL 35.1-43.9 [facility] Work Phone: [phone] Erythrocyte distribution width (RBC) [Ratio] 13.2 % 11.6-14.6 [facility] Work Phone: Immature granulocytes/100 WBC (Bld) 0.600 % 0.0-0.9 [facility] Work Phone: Comment on above: IG% - Immature Granu locytes (promyelocytes, myelocytes and metamyelocytes) > 1% indicates that a LEFT SHIFT is Present. MCH (RBC) [Entitic mass] 32.8 pg 27.0-32.0 [facility] Work Phone: Nucleated RBC/100 WBC (Bld) [Ratio] 0 % 0-5 [facility] Work Phone: [phone] MCHC Auto (RBC) [Mass/Vol]on 06-18-2022 MCHC (RBC) [Mass/Vol] 33.5 g/dL 32-36 [facility] Work Phone: [phone] Mucus LM Ql (Urine sed)on Mucus Ql (Urine sed) 1+ /hpf [facility] Work Phone: [phone] Nitrite Test strip Ql (U)on 06-18-2022 Nitrite Ql (U) Negative Negative [facility] Work Phone: No Panel Informationon 06-18 Thyroid Stimulating Hormone (TSH) 0.41 uIU/mL 0.358-3.74 [facility] Work Phone: D-Dimer Quantitative (PE/DVT) 0.28 FEU/ug/m 0.27-0.49 [facility] Work Phone: Comment on above: NORMAL D-Dimer level (<0.50) indicates no DVT or PE. Estimated Creatinine Clearance Calc 46.70 ml/min [facility] Work Phone: Estimated GFR (MDRD) Amer 66 mL/min >60 [facility] Work Phone: Comment on above: GFR Calc Estimated GFR (MDRD) Non-Af Amer 54 mL/min >60 [facility] Work Phone: Comment on above: Non- GFR Calc Troponin I High Sensitivity 14 pg/mL 3.0-54.0 [facility] Work Phone: Comment on above: Please Note: New [place] t Units and Gender Specific Reference Ranges. For more information see Policy Stat Procedure [place] High Sensitivity Troponin (TNIH) and attachments. Platelets bldon 06-18-2022 Platelets (Bld) [#/Vol] 127 10*3/uL 150-450 [facility] Work Phone: [phone] Protein Test strip Ql (U)on 08-24-2022 Protein Ql (U) 30 mg/dl Negative [facility] Work Phone: Serum or plasma C reactive p rotein measurement (mass/volume)on 06-18-2022 CRP [Mass/Vol] 19.10 mg/L 0.0-3.0 [facility] Work Phone: Comment on above: C-Reactive Protein ( CRP) provides useful information for thediagnosis, therapy and monitoring of inflammatory processesand associated diseases. For the evaluation of Relative Riskfor Cardiovascular Disease, a High Sensitivity CRP (HSCRP)should be ordered. Serum or plasma albumin alexander urement (mass/volume)on 06-18-2022 Albumin [Mass/Vol] 2.9 g/dL 3.2-5.0 [facility] Work Phone: [phone] Albumin [Mass/Vol] 3.4 g/dL 3.2-5.0 [facility] Work Phone: [phone] Serum or plasma albumin/glob ulin mass ratioon 06-18-2022 Albumin/Globulin [Mass ratio] 0.8 {ratio} 0.9-2.4 [facility] Work Phone: [phone] Albumin/Globulin [Mass ratio] 0.9 {ratio} 0.9-2.4 [facility] Work Phone: [phone] Serum or plasma calcium alexander urement (mass/volume)on 06-18-2022 Calcium [Mass/Vol] 8.7 mg/dL 8.5-10.1 [facility] Work Phone: [phone] Serum or plasma cholesterol in HDL measurement (mass/volume)on 06-18-2022 Cholesterol in HDL [Mass/Vol] 58 mg/dL >40 [facility] Work Phone: [phone] Comment on above: The drugs N-Acetylcy steine and Metamizole may falsely depress this assay. Reference Range HDL <40 mg/dL Low HDL Cholesterol HDL >or= 60 mg/dL High HDL Cholesterol Serum or plasma cholesterol in VLDL measurement (mass/volume)on 06-18-2022 Cholesterol in VLDL [Mass/Vol] 20 mg/dL 5-40 [facility] Work Phone: [phone] Serum or plasma creatinine m easurement (mass/volume)on 06-18-2022 Creatinine [Mass/Vol] 1.05 mg/dL 0.55-1.02 [facility] Work Phone: Comment on above: The validity of the calculated GFR & GFRAA in patients over 70 years has not been determined. Clinical correlation is essential. Serum or plasma ferritin gerard surement (mass/volume)on 06-18-2022 Ferritin [Mass/Vol] 307 ng/mL 8-252 [facility] Work Phone: Serum or plasma low density lipoprotein (LDL) cholesterol measurement (mass/volume)on 06-18-2022 Cholesterol in LDL [Mass/Vol] 47 mg/dL 0-130 [facility] Work Phone: Serum or plasma urea nitroge n measurement (mass/volume)on 06-18-2022 Urea nitrogen [Mass/Vol] 14 mg/dL 7-18 [facility] Work Phone: Serum procalcitonin measurem enton 06-18-2022 Procalcitonin [Mass/Vol] ng/mL 0.00-0.09 [facility] Work Phone: Comment on above: A [...] Ql (Urine sed) 0 SEEN /hpf 5-10 [facility] Work Phone: Thin prep Papanicolaou smear with manual screeningon 06-18-2022 Thin prep Papanicolaou smear with manual screening 18 U/L 15-37 [facility] Work Phone: [phone] Thin prep Papanicolaou smear with manual screening 20 U/L 15-37 [facility] Work Phone: [phone] Thin prep Papanicolaou smear with manual screening 8 5-15 [facility] Work Phone: [phone] Thin prep Papanicolaou smear with manual screening 262 U/L 84-246 [facility] Work Phone: Urine blood detectionon 05-27 RBC Ql (U) 10 /ul Negative [facility] Work Phone: [phone] RBC Ql (U) 0-5 SEEN /hpf 0-5 [facility] Work Phone: Urine clarityon 06-18-2022 Clarity (U) Clear Clear [facility] Work Phone: Urine color determinationon 06-18-2022 Color (U) Yellow Yellow [facility] Work Phone: Urine glucose detectionon Glucose Ql (U) Normal mg/dl Normal [facility] Work Phone: Urine leukocyte esterase det ection by dipstickon 06-18-2022 Leukocyte esterase Test strip Ql (U) 25 /ul Negative [facility] Work Phone: Urine pHon 06-18-2022 pH (U) 5.0 [pH] 5.0 - 8.0 [facility] Work Phone: Urine sediment bacteria coun t by microscopy (number/high power field)on 06-18-2022 Bacteria LM.HPF (Urine sed) [#/Area] RARE /hpf None Seen [facility] Work Phone: Urine specific gravity measu rementon 06-18-2022 Specific gravity (U) [Rel density] 1.020 1.002-1.030 [facility] Work Phone: Urobilinogen Auto test strip Ql (U)on 06-18-2022 Urobilinogen Ql (U) Normal mg/dl Normal [facility] Work Phone: Whole blood hemoglobin A1c/t otal hemoglobin ratio (mass fraction)on 06-18-2022 HbA1c (Bld) [Mass fraction] 6.1 % 3.8-5.6 [facility] Work Phone: Comment on above: Normal < 5.7 % Predi abetic 5.7 - 6.4 % Diabetic >or= 6.5 % Please note range changes. Absolute lymphocyte counton 06-17-2022 Lymphocytes Auto (Unsp spec) [#/Vol] 0.60 10*3/uL 0.83-4.51 [facility] Work Phone: Basophil percentageon 2021 Basophils/100 WBC (Bld) 0.4 % 0-1 [facility] Work Phone: Bilirubin [Mass/Vol] 1.00 mg/dL 0.20-1.00 [facility] Work Phone: Comment on above: For patients on eltr ombopag therapy, use of Dimension [place] TBIL is not recommended. Eosinophils/100 WBC (Bld) 0.3 % 0-5 [facility] Work Phone: Glucose [Mass/Vol] 154 mg/dL 74-106 [facility] Work Phone: Comment on above: Fasting Glucose resu lt greater than or equal to 126 mg/dL suggests DIABETES MELLITUS per A.D.A. criteria. Neutrophils (Bld) [#/Vol] 6.2 10*3/uL 2.0-7.7 [facility] Work Phone: Neutrophils/100 WBC (Bld) 83.0 % 47-70 [facility] Work Phone: Potassium [Moles/Vol] 3.6 mmol/L 3.5-5.1 [facility] Work Phone: [phone] WBC (Bld) [#/Vol] 7.4 10*3/uL 4.4-11.0 [facility] Work Phone: Blood erythrocytes count (nu mber/volume)on 06-17-2022 RBC (Bld) [#/Vol] 3.96 10*6/uL 4.2-5.4 [facility] Work Phone: Blood hemoglobin measurement (mass/volume)on 06-17-2022 Hemoglobin (Bld) [Mass/Vol] 12.9 g/dL 12.0-15.0 [facility] Work Phone: Blood lymphocytes/100 leukoc yteson 06-17-2022 Lymphocytes/100 WBC (Bld) 8.1 % 19-41 [facility] Work Phone: Blood manual differential co mment interpretation (narrative result)on 06-17-2022 Manual differential comment Jerson (Bld) [Interp] SCANNED [facility] Work Phone: Comment on above: LYMPHOPENIA NOTED Blood monocytes/100 leukocyt eson 06-17-2022 Monocytes/100 WBC (Bld) 7.7 % 0-10 [facility] Work Phone: Blood platelet mean volumeon 06-17-2022 Platelet mean volume (Bld) [Entitic vol] 9.3 fL 6.2-12.0 [facility] Work Phone: Determination of erythrocyte mean corpuscular volume (MCV)on 06-17-2022 MCV (RBC) [Entitic vol] 97.2 fL 81-99 [facility] Work Phone: [phone] Hematocrit Auto (Bld) [Volum e fraction]on 06-17-2022 Hematocrit (Bld) [Volume fraction] 38.5 % 37-47 [facility] Work Phone: INR in Blood by Coagulation assayon 06-17-2022 INR Coag (Bld) [Relative time] 1.8 {INR} [facility] Work Phone: Laboratory - Chemistry and C hemistry - challengeon 06-17-2022 ALP [Catalytic activity/Vol] 70 U/L 45-117 [facility] Work Phone: [phone] ALT [Catalytic activity/Vol] 20 U/L 13-56 [facility] Work Phone: [phone] CO2 [Moles/Vol] 25.0 mmol/L 21.0-32.0 [facility] Work Phone: [phone] Urea nitrogen/Creatinine [Mass ratio] 12.7 mg/mg 10-20 [facility] Work Phone: [phone] Laboratory - Coagulationon 0 06-17-2022 PT Coag (PPP) [Time] 20.9 s 11.7-14.9 [facility] Work Phone: [phone] Laboratory - Hematology and Cell countson 06-17-2022 Erythrocyte distribution width (RBC) [Entitic vol] 46.9 fL 35.1-43.9 [facility] Work Phone: [phone] Immature granulocytes/100 WBC (Bld) 0.500 % 0.0-0.9 [facility] Work Phone: [phone] Comment on above: IG% - Immature Granu locytes (promyelocytes, myelocytes and metamyelocytes) > 1% indicates that a LEFT SHIFT is Present. MCH (RBC) [Entitic mass] 32.6 pg 27.0-32.0 [facility] Work Phone: No Panel Informationon 06-17 Estimated Creatinine Clearance Calc 55.92 ml/min [facility] Work Phone: [phone] Estimated GFR (MDRD) Amer 74 mL/min >60 [facility] Work Phone: [phone] Comment on above: GFR Calc Estimated GFR (MDRD) Non-Af Amer 61 mL/min >60 [facility] Work Phone: [phone] Comment on above: Non- GFR Calc Troponin I High Sensitivity 10 pg/mL 3.0-54.0 [facility] Work Phone: [phone] Comment on above: Please Note: New [place] t Units and Gender Specific Reference Ranges. For more information see Policy Stat Procedure [place] High Sensitivity Troponin (TNIH) and attachments. Platelets bldon 06-17-2022 Platelets (Bld) [#/Vol] 129 10*3/uL 150-450 [facility] Work Phone: Serum or plasma calcium alexander urement (mass/volume)on 06-17-2022 Calcium [Mass/Vol] 8.9 mg/dL 8.5-10.1 [facility] Work Phone: Serum or plasma creatinine m easurement (mass/volume)on 06-17-2022 Creatinine [Mass/Vol] 0.94 mg/dL 0.55-1.02 [facility] Work Phone: [phone] Comment on above: The validity of the calculated GFR & GFRAA in patients over 70 years has not been determined. Clinical correlation is essential. Serum or plasma urea nitroge n measurement (mass/volume)on 06-17-2022 Urea nitrogen [Mass/Vol] 12 mg/dL 7-18 [facility] Work Phone: Thin prep Papanicolaou smear with manual screeningon 06-17-2022 Thin prep Papanicolaou smear with manual screening 9 5-15 [facility] Work Phone: Absolute lymphocyte counton 06-16-2022 Lymphocytes Auto (Unsp spec) [#/Vol] 1.05 10*3/uL 0.83-4.51 [facility] Work Phone: Basophil percentageon 2021 Basophils/100 WBC (Bld) 0.5 % 0-1 [facility] Work Phone: Bilirubin [Mass/Vol] 0.80 mg/dL 0.20-1.00 [facility] Work Phone: Comment on above: For patients on eltr ombopag therapy, use of Dimension [place] TBIL is not recommended. Chloride [Moles/Vol] 105 mmol/L 98-107 [facility] Work Phone: Eosinophils/100 WBC (Bld) 2.4 % 0-5 [facility] Work Phone: Glucose [Mass/Vol] 136 mg/dL 74-106 [facility] Work Phone: Comment on above: Fasting Glucose resu lt greater than or equal to 126 mg/dL suggests DIABETES MELLITUS per A.D.A. criteria. Neutrophils (Bld) [#/Vol] 5.6 10*3/uL 2.0-7.7 [facility] Work Phone: Neutrophils/100 WBC (Bld) 75.8 % 47-70 [facility] Work Phone: Potassium [Moles/Vol] 3.7 mmol/L 3.5-5.1 [facility] Work Phone: Protein [Mass/Vol] 7.3 g/dL 6.4-8.2 [facility] Work Phone: Sodium [Moles/Vol] 139 mmol/L 136-145 [facility] Work Phone: WBC (Bld) [#/Vol] 7.4 10*3/uL 4.4-11.0 [facility] Work Phone: Basophil percentage 0 SEEN /hpf 0-5 [facility] Work Phone: [phone] Bilirubin Test strip Ql (U)o n 06-16-2022 Bilirubin Ql (U) Negative Negative [facility] Work Phone: [phone] Blood erythrocytes count (nu mber/volume)on 06-16-2022 RBC (Bld) [#/Vol] 4.00 10*6/uL 4.2-5.4 [facility] Work Phone: Blood hemoglobin measurement (mass/volume)on 06-16-2022 Hemoglobin (Bld) [Mass/Vol] 13.5 g/dL 12.0-15.0 [facility] Work Phone: Blood lymphocytes/100 leukoc yteson 06-16-2022 Lymphocytes/100 WBC (Bld) 14.1 % 19-41 [facility] Work Phone: Blood monocytes/100 leukocyt eson 06-16-2022 Monocytes/100 WBC (Bld) 6.7 % 0-10 [facility] Work Phone: Blood platelet mean volumeon 06-16-2022 Platelet mean volume (Bld) [Entitic vol] 10.0 fL 6.2-12.0 [facility] Work Phone: Determination of erythrocyte mean corpuscular volume (MCV)on 06-16-2022 MCV (RBC) [Entitic vol] 98.3 fL 81-99 [facility] Work Phone: [phone] Hematocrit Auto (Bld) [Volum e fraction]on 06-16-2022 Hematocrit (Bld) [Volume fraction] 39.3 % 37-47 [facility] Work Phone: INR in Blood by Coagulation assayon 06-16-2022 INR Coag (Bld) [Relative time] 3.0 {INR} [facility] Work Phone: Ketones Test strip Ql (U)on 06-16-2022 Ketones Ql (U) Negative Negative [facility] Work Phone: Laboratory - Chemistry and C hemistry - challengeon 06-16-2022 ALP [Catalytic activity/Vol] 93 U/L 45-117 [facility] Work Phone: ALT [Catalytic activity/Vol] 22 U/L 13-56 [facility] Work Phone: [phone] CO2 [Moles/Vol] 26.0 mmol/L 21.0-32.0 [facility] Work Phone: Globulin (S) [Mass/Vol] 3.8 g/dL 2.2-4.2 [facility] Work Phone: [phone] Urea nitrogen/Creatinine [Mass ratio] 15.9 mg/mg 10-20 [facility] Work Phone: Laboratory - Coagulationon 0 06-16-2022 PT Coag (PPP) [Time] 30.9 s 11.7-14.9 [facility] Work Phone: Laboratory - Hematology and Cell countson 06-16-2022 Erythrocyte distribution width (RBC) [Entitic vol] 47.7 fL 35.1-43.9 [facility] Work Phone: [phone] Erythrocyte distribution width (RBC) [Ratio] 13.2 % 11.6-14.6 [facility] Work Phone: [phone] Immature granulocytes/100 WBC (Bld) 0.500 % 0.0-0.9 [facility] Work Phone: [phone] Comment on above: IG% - Immature Granu locytes (promyelocytes, myelocytes and metamyelocytes) > 1% indicates that a LEFT SHIFT is Present. MCH (RBC) [Entitic mass] 33.8 pg 27.0-32.0 [facility] Work Phone: [phone] Nucleated RBC/100 WBC (Bld) [Ratio] 0 % 0-5 [facility] Work Phone: [phone] MCHC Auto (RBC) [Mass/Vol]on 06-16-2022 MCHC (RBC) [Mass/Vol] 34.4 g/dL 32-36 [facility] Work Phone: Mucus LM Ql (Urine sed)on Mucus Ql (Urine sed) 0 SEEN /hpf [facility] Work Phone: [phone] Nitrite Test strip Ql (U)on 06-16-2022 Nitrite Ql (U) Negative Negative [facility] Work Phone: [phone] No Panel Informationon 06-16 Estimated Creatinine Clearance Calc 45.83 ml/min [facility] Work Phone: [phone] Estimated GFR (MDRD) Amer 64 mL/min >60 [facility] Work Phone: [phone] Comment on above: GFR Calc Estimated GFR (MDRD) Non-Af Amer 53 mL/min >60 [facility] Work Phone: [phone] Comment on above: Non- GFR Calc Platelets bldon 06-16-2022 Platelets (Bld) [#/Vol] 136 10*3/uL 150-450 [facility] Work Phone: [phone] Protein Test strip Ql (U)on 06-16-2022 Protein Ql (U) Negative Negative [facility] Work Phone: [phone] Serum or plasma albumin alexander urement (mass/volume)on 06-16-2022 Albumin [Mass/Vol] 3.5 g/dL 3.2-5.0 [facility] Work Phone: [phone] Serum or plasma albumin/glob ulin mass ratioon 06-16-2022 Albumin/Globulin [Mass ratio] 0.9 {ratio} 0.9-2.4 [facility] Work Phone: [phone] Serum or plasma calcium alexander urement (mass/volume)on 06-16-2022 Calcium [Mass/Vol] 9.0 mg/dL 8.5-10.1 [facility] Work Phone: [phone] Serum or plasma creatinine m easurement (mass/volume)on 06-16-2022 Creatinine [Mass/Vol] 1.07 mg/dL 0.55-1.02 [facility] Work Phone: Comment on above: The validity of the calculated GFR & GFRAA in patients over 70 years has not been determined. Clinical correlation is essential. Serum or plasma urea nitroge n measurement (mass/volume)on 06-16-2022 Urea nitrogen [Mass/Vol] 17 mg/dL 7-18 [facility] Work Phone: [phone] Squamous epithelial cells de tection in urine sediment by light microscopyon 06-16-2022 Epithelial cells.squamous LM Ql (Urine sed) 0 SEEN /hpf 5-10 [facility] Work Phone: [phone] Thin prep Papanicolaou smear with manual screeningon 06-16-2022 Thin prep Papanicolaou smear with manual screening 19 U/L 15-37 [facility] Work Phone: [phone] Thin prep Papanicolaou smear with manual screening 8 5-15 [facility] Work Phone: [phone] Urine blood detectionon 05-27 RBC Ql (U) 10 /ul Negative [facility] Work Phone: [phone] RBC Ql (U) 0 SEEN /hpf 0-5 [facility] Work Phone: Urine clarityon 06-16-2022 Clarity (U) Clear Clear [facility] Work Phone: Urine color determinationon 06-16-2022 Color (U) Yellow Yellow [facility] Work Phone: Urine glucose detectionon Glucose Ql (U) Normal mg/dl Normal [facility] Work Phone: Urine leukocyte esterase det ection by dipstickon 06-16-2022 Leukocyte esterase Test strip Ql (U) Negative Negative [facility] Work Phone: Urine pHon 06-16-2022 pH (U) 6.0 [pH] 5.0 - 8.0 [facility] Work Phone: Urine sediment bacteria coun t by microscopy (number/high power field)on 06-16-2022 Bacteria LM.HPF (Urine sed) [#/Area] 0 /[HPF] None Seen [facility] Work Phone: Urine specific gravity measu rementon 06-16-2022 Specific gravity (U) [Rel density] 1.015 1.002-1.030 [facility] Work Phone: Urobilinogen Auto test strip Ql (U)on 06-16-2022 Urobilinogen Ql (U) Normal mg/dl Normal [facility] Work Phone: 2019 CORONAVIRUSon SARS-CoV-2 (COVID-19) RNA RUSSELL+probe Ql (Resp) SARS-CoV-2 (Agent of COVID-19) Not Detected by RT-PCR or equivalent method. Not Detected [facility] XR CHEST 2V FRONTAL/LATon [facility] XR Chest PA and Lateralon IMPRESSION: Stable chronic interstitial changes.. No acute cardiopulmonary process. Save All Operator: JULIOCESAR Transcribe Date/Time: May 06 2022 12:00P [...] change. No bony destructive process noted. [id number] _DIVISION OF RADIOLOGY Provider, [facility] - 05/06/2022 * * *Final Report* * [...] chronic interstitial changes.. No acute cardiopulmonary process. Save All Operator: JULIOCESAR Transcribe Date/Time: May 06 2022 12:00P Dictated by : TAMY RAMIREZ MD This examination was interpreted and the report reviewed and electronically signed by: TAMY RAMIREZ MD on May 06 2022 12:03PM [facility] Radiology Study observation (narrative) Corina rico [facility] XR Chest PA and LateralOrder ed By: [facility] Provider on 05-06-2022 [facility] INR in Blood by Coagulation assayon 04-02-2022 INR Coag (Bld) [Relative time] 2.2 {INR} [facility] Work Phone: Laboratory - Coagulationon 0 04-02-2022 PT Coag (PPP) [Time] 24.5 s 11.7-14.9 [facility] Work Phone: HEMOGLOBIN A1C (POC)on 03-25 HbA1c (Bld) [Mass fraction] 6.0 % 4.2 - 5.6 % [facility] INR in Blood by Coagulation assayon 03-18-2022 INR Coag (Bld) [Relative time] 1.4 {INR} [facility] Work Phone: Laboratory - Coagulationon 0 03-18-2022 PT Coag (PPP) [Time] 16.8 s 11.7-14.9 [facility] Work Phone: INR in Blood by Coagulation assayon 01-07-2022 INR Coag (Bld) [Relative time] 2.2 {INR} [facility] Work Phone: Laboratory - Coagulationon 0 01-07-2022 PT Coag (PPP) [Time] 23.7 s 11.7-14.9 [facility] Work Phone: INR in Blood by Coagulation assayon 12-04-2021 INR Coag (Bld) [Relative time] 2.4 {INR} [facility] Work Phone: Laboratory - Coagulationon 0 2-09-2022 PT Coag (PPP) [Time] 25.5 s 11.7-14.9 [facility] Work Phone: [phone] INR in Blood by Coagulation assayon 10-29-2021 INR Coag (Bld) [Relative time] 2.6 {INR} [facility] Work Phone: [phone] Laboratory - Coagulationon 0 10-29-2021 PT Coag (PPP) [Time] 26.9 s 11.7-14.9 [facility] Work Phone: INR in Blood by Coagulation assayon 10-14-2021 INR Coag (Bld) [Relative time] 1.5 {INR} [facility] Work Phone: [phone] Laboratory - Coagulationon 1 12-15-2020 PT Coag (PPP) [Time] 17.0 s 11.7-14.9 [facility] Work Phone: Basophil percentageon 2020 Bilirubin [Mass/Vol] 0.50 mg/dL 0.20-1.00 [facility] Work Phone: Comment on above: For patients on eltr ombopag therapy, use of Dimension [place] TBIL is not recommended. Cholesterol [Mass/Vol] 143 mg/dL <200 [facility] Work Phone: Comment on above: <200 mg/dL Desirable 200-240 mg/dL Borderline >240 mg/dL High Risk Protein [Mass/Vol] 7.7 g/dL 6.4-8.2 [facility] Work Phone: Triglyceride [Mass/Vol] 135 mg/dL [facility] Work Phone: [phone] Comment on above: The drugs N-Acetylcy steine and Metamizole may falsely depress this assay.Serum Triglycerides Reference Interval Normal <150 mg/dL Borderline high 150 - 199 mg/dL High 200 - 499 mg/dL Very High > or = 500 mg/dL Direct bilirubinon Bilirubin.direct [Mass/Vol] 0.14 mg/dL 0.00-0.30 [facility] Work Phone: Laboratory - Chemistry and C hemistry - challengeon 09-26-2021 ALP [Catalytic activity/Vol] 89 U/L 45-117 [facility] Work Phone: ALT [Catalytic activity/Vol] 20 U/L 13-56 [facility] Work Phone: Globulin (S) [Mass/Vol] 4.1 g/dL 2.2-4.2 [facility] Work Phone: [phone] Serum or plasma albumin alexander urement (mass/volume)on 09-26-2021 Albumin [Mass/Vol] 3.6 g/dL 3.2-5.0 [facility] Work Phone: Serum or plasma cholesterol in HDL measurement (mass/volume)on 09-26-2021 Cholesterol in HDL [Mass/Vol] 63 mg/dL [facility] Work Phone: Comment on above: The drugs N-Acetylcy steine and Metamizole may falsely depress this assay. Reference Range HDL <40 mg/dL Low HDL Cholesterol HDL >or= 60 mg/dL High HDL Cholesterol Serum or plasma cholesterol in VLDL measurement (mass/volume)on 09-26-2021 Cholesterol in VLDL [Mass/Vol] 27 mg/dL 5-40 [facility] Work Phone: Serum or plasma low density lipoprotein (LDL) cholesterol measurement (mass/volume)on 09-26-2021 Cholesterol in LDL [Mass/Vol] 53 mg/dL 0-130 [facility] Work Phone: Thin prep Papanicolaou smear with manual screeningon 09-26-2021 Thin prep Papanicolaou smear with manual screening 20 U/L 15-37 [facility] Work Phone: [phone] ANES POSTPROC EVALon 021 ANES POSTPROC EVAL HNO ID: [id number] Author: Farhat Lino Service: Anesthesiology Author Type: Anesthesiologist Type: Anesthesia Postprocedure Evaluation Filed: 01/23/2021 12:53 PM Note Text: POST ANESTHESIA EVALUATION NOTE : 1945 Procedure Summary Date: 01/23/21 Room / [place]02 [place] Anesthesia Start: 1030 Anesthesia Stop: 1117 Procedures: DECOMPRESSION NERVE MEDIAN CARPAL TUNNEL (Bilateral [...] January 23, 2021 TIME: 12:52 PM CSN: [id number] [facility] ANES PRE-OPon 01-23-2021 ANES PRE-OP HNO ID: [id number] Author: Lorena Mccrary Service: Anesthesiology Author Type: [...] January 23, 2021 TIME: 9:15 AM CSN: [id number] [facility] OPERATIVE NOon 01-23-2021 OPERATIVE NO HNO ID: [id number] Author: Pete Goldsmith MD Service: Orthopaedic Surgery Author Type: Physician Type: Operative Report Filed: 02/24/2021 5:43 PM Note Text: [place] [address] [place] OPERATIVE REPORT NAME:Keisha Red [id number] DATE: January 23, 2021 AGE: [id number] year [...] resistance. Subsequently, I selected a mini meniscotome Haskell blade and slid this in the protective guide, completely dividing the transverse carpal ligament. Mini rakes were used to view up the wound to visualize for complete release and a Redgranite elevator was used to palpate for complete [...] the transec (more content not included)... Normal [facility] Microbiology: Culture, Urine on 08-12-2017 CUUR Trimethoprim/Sulfame tho $ <=20 S Invalid Interpretation Code [facility] Work Phone: Office Visit: UC: bladder in fectionon 08-10-2017 Bilirubin Ql (U) Negative Invalid Interpretation Code [facility] Work Phone: [phone] blood in urine (hemoglobin) by dipstick 2+ Invalid Interpretation Code [facility] Work Phone: [phone] Dietary management education, guidance, and counseling (procedure) yes Invalid Interpretation Code [facility] Work Phone: [phone] Documentation of current medications (procedure) Done Invalid Interpretation Code [facility] Work Phone: [phone] Fall risk assessment No Invalid Interpretation Code [facility] Work Phone: [phone] specific gravity, urine 1.010 Invalid Interpretation Code [facility] Work Phone: [phone] Tobacco smoking status NHIS Never Invalid Interpretation Code [facility] Work Phone: [phone] Tobacco use CPHS Never smoker Invalid Interpretation Code [facility] Work Phone: [phone] Urine, appearance clear Invalid Interpretation Code [facility] Work Phone: [phone] Urine, color lt. yellow Invalid Interpretation Code [facility] Work Phone: [phone] Urine, glucose presence Negative Invalid Interpretation Code [facility] Work Phone: [phone] Urine, ketones presence Negative Invalid Interpretation Code [facility] Work Phone: [phone] Urine, leukocyte esterase presence 2+ Invalid Interpretation Code [facility] Work Phone: [phone] Urine, nitrite presence Negative Invalid Interpretation Code [facility] Work Phone: [phone] Urine, pH 5.0 [pH] Invalid Interpretation Code [facility] Work Phone: [phone] Urine, protein Negative Invalid Interpretation Code [facility] Work Phone: [phone] Urine, urobilinogen presence Negative Invalid Interpretation Code [facility] Work Phone: [phone] Lab Report: Lipid Profileon 07-27-2017 Cholesterol 138 mg/dL Invalid Interpretation Code 200 [facility] Work Phone: [phone] HDL Cholesterol 55 mg/dL Invalid Interpretation Code [facility] Work Phone: [phone] LDL Cholesterol 51 mg/dL Invalid Interpretation Code 0-130 [employer] Phone: [phone] Triglyceride 162 mg/dL Invalid Interpretation Code [facility] Work Phone: [phone] very low density lipoproteins 32 mg/dL Invalid Interpretation Code 5-40 [facility] Work Phone: [phone] Lab Report: Liver Profileon 07-27-2017 Alanine aminotransferase (ALT) 23 U/L Invalid Interpretation Code 12-78 [facility] Work Phone: [phone] Albumin 2.2 g/dL Low 3.4-5.0 [facility] Work Phone: [phone] Alkaline phosphatase (ALP) 82 U/L Invalid Interpretation Code 45-117 [facility] Work Phone: [phone] Aspartate aminotransferase (AST) 32 U/L Invalid Interpretation Code 15-37 [facility] Work Phone: [phone] Bilirubin (direct) 0.10 mg/dL Invalid Interpretation Code 0.00-0.30 [facility] Work Phone: [phone] Bilirubin (total) 0.60 mg/dL Invalid Interpretation Code 0.20-1.00 [facility] Work Phone: [phone] Globulin 5.6 g/dL High 2.3-3.5 [facility] Work Phone: [phone] Protein 7.8 g/dL Invalid Interpretation Code 6.4-8.2 [facility] Work Phone: [phone] Chart Maintenanceon 07-23-20 17 Left ventricular Ejection fraction 75 % Invalid Interpretation Code [facility] Work Phone: [phone] Coumadin Management: Maribelari n [place] 07-14-2017 INR Coag RelTime (Bld) 2 to 3 Invalid Interpretation Code [facility] Work Phone: [phone] INR Coag RelTime (Bld) Hospital lab Invalid Interpretation Code [facility] Work Phone: [phone] INR Coag RelTime (PPP) 2.6 {INR} Invalid Interpretation Code [facility] Work Phone: [phone] Prothrombin time (PT) Coag time (PPP) 26.6 s Invalid Interpretation Code [facility] Work Phone: [phone] Replaced Document: Prothromb in Time w/INRon 07-14-2017 Prothrombin time (PT) Coag time (PPP) 26.6 s High 11.7-14.9 [facility] Work Phone: [phone] Chart Maintenanceon 03-26-20 17 Hemoglobin A1c/Hemoglobin.total mass fraction (Bld) 6.4 % Invalid Interpretation Code [employer] Phone: [phone] Replaced Document: Queenie Wang CG Observationson 02-04-2017 EKG QRS axis 25 deg Invalid Interpretation Code [facility] Work Phone: [phone] Interpretation Atrial Rhythm -First degree A-V block P:QRS - 1:1, Abnormal P axis, H Rate 69 Erik = 308-Poor R-wave progression -may be secondary to pulmonary disease consider old anterior infarct. Low voltage -possible pulmonary disease. ABNORMAL Invalid Interpretation Code [employer] Phone: [phone] P Dumont -90 deg Invalid Interpretation Code [facility] Work Phone: [phone] MA Interval 308 ms Invalid Interpretation Code [facility] Work Phone: [phone] Pulse (Heart Rate) 69 /min Invalid Interpretation Code [facility] Work Phone: [phone] QRS Duration 80 ms Invalid Interpretation Code [facility] Work Phone: [phone] QT Interval new path ms Invalid Interpretation Code [facility] Work Phone: [phone] T Dumont 33 deg Invalid Interpretation Code [facility] Work Phone: [phone] Lab Report: Basic Metabolic Profile (BMP)on 01-16-2017 Anion gap 4 mmol/L Low 5-15 [facility] Work Phone: [phone] BUN/Creatinine Ratio 17.7 RATIO Invalid Interpretation Code 10-20 [facility] Work Phone: [phone] Calcium 9.2 mg/dL Invalid Interpretation Code 8.5-10.1 [facility] Work Phone: [phone] Chloride 105 mmol/L Invalid Interpretation Code 98-107 [facility] Work Phone: [phone] CO2 28.0 mmol/L Invalid Interpretation Code 21.0-32.0 [facility] Work Phone: [phone] Creatinine 63.01 mL/min Invalid Interpretation Code [facility] Work Phone: [phone] Creatinine 0.85 mg/dL Invalid Interpretation Code 0.55-1.02 [facility] Work Phone: [phone] eGFR (non-black) 85 mL/min/{1.73_m2} Invalid Interpretation Code >60 [facility] Work Phone: [phone] eGFR (non-black) 70 mL/min/{1.73_m2} Invalid Interpretation Code >60 [facility] Work Phone: [phone] Glucose mass conc 139 mg/dL High 70-110 [facility] Work Phone: [phone] Potassium molar conc 3.7 mmol/L Invalid Interpretation Code 3.5-5.1 [facility] Work Phone: [phone] Sodium 137 mmol/L Invalid Interpretation Code 136-145 [facility] Work Phone: [phone] Urea nitrogen 15 mg/dL Invalid Interpretation Code 7-18 [facility] Work Phone: [phone] Culture, urine Bacteria identified Cx Nom (U) Mixed Gram Pos & Gram Neg Org [facility] Work Phone: [phone] Influenza virus A and B and SARS-CoV-2 (COVID-19) Ag panel - Upper respiratory specim SARS-CoV-2 & FLU Antigen (Rapid) SARS-CoV-2 (COVID 19) [facility] Work Phone: [phone] Laboratory - Microbiology an d Antimicrobial susceptibility Bacteria identified Cx Nom (Bld) No growth in 5 days. [facility] Work Phone: [phone] Respiratory pathogens DNA and RNA 12b panel RUSSELL+probe (Unsp spec) [facility] Work Phone: [phone] No Panel Information Respiratory Panel (PCR) [facility] Work Phone: Vital Signs Date Time Vital Sign Value Performing Clinician Facility 05-11-2025 16:14-0400 Body mass index (BMI) [Ratio] 29.32 kg/m2 Xochitl Castrejon MD Work Phone: [facility] 05-11-2025 16:14-0400 Body weight 87.45 kg Xochitl Castrejon MD Work Phone: [facility] 05-11-2025 16:14-0400 Diastolic blood pressure 63 mm[Hg] Xochitl Castrejon MD Work Phone: [facility] 05-11-2025 16:14-0400 Heart rate 88 /min Xochitl Castrejon MD Work Phone: [facility] 05-11-2025 16:14-0400 Respiratory rate 16 /min Xochitl Castrejon MD Work Phone: [facility] 05-11-2025 16:14-0400 SaO2% (BldA) [Mass fraction] 95 % Xochitl Castrejon MD Work Phone: [facility] 05-11-2025 16:14-0400 Systolic blood pressure 99 mm[Hg] Xochitl Castrejon MD Work Phone: [facility] 03-25-2025 22:00-0400 Body mass index (BMI) [Ratio] 29.2 kg/m2 Dr. Joon Lopez MD Work Phone: [facility] 03-13-2025 07:43-0400 Diastolic blood pressure 72 mm[Hg] Whitney Stephany 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.MANAGER FRONT Work Phone: [facility] 03-13-2025 07:43-0400 Systolic blood pressure 120 mm[Hg] Whitney Stephany 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.MANAGER FRONT Work Phone: [facility] 03-13-2025 07:41-0400 Body mass index (BMI) [Ratio] 28.59 kg/m2 Whitney Stephany 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.MANAGER FRONT Work Phone: [facility] 03-13-2025 07:41-0400 Body weight 85.3 kg Whitney Stephany 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.MANAGER FRONT Work Phone: [facility] 03-13-2025 07:41-0400 Heart rate 80 /min Whitney Stephany 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.MANAGER FRONT Work Phone: [facility] 03-13-2025 07:41-0400 SaO2% (BldA) [Mass fraction] 98 % Whitney Stephany 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.MANAGER FRONT Work Phone: [facility] 02-09-2025 15:10-0400 Body height 172.7 cm Xochitl Castrejon MD Work Phone: [facility] 02-09-2025 15:10-0400 Body mass index (BMI) [Ratio] 29.07 kg/m2 Xochitl Castrejon MD Work Phone: [facility] 02-09-2025 15:10-0400 Body weight 86.73 kg Xochitl Castrejon MD Work Phone: [facility] 02-09-2025 15:10-0400 Diastolic blood pressure 71 mm[Hg] Xochitl Castrejon MD Work Phone: [facility] 02-09-2025 15:10-0400 Heart rate 61 /min Xochitl Castrejon MD Work Phone: [facility] 02-09-2025 15:10-0400 SaO2% (BldA) [Mass fraction] 98 % Xochitl Castrejon MD Work Phone: [facility] 02-09-2025 15:10-0400 Systolic blood pressure 109 mm[Hg] Xochitl Castrejon MD Work Phone: [facility] 02-07-2025 14:13-0400 Body mass index (BMI) [Ratio] 30.6 kg/m2 Clarisse Joyce 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.MANAGER FRONT Work Phone: [facility] 02-07-2025 14:13-0400 Body temperature 97.39 [degF] Clarisse Joyce 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.MANAGER FRONT Work Phone: [facility] [place] 02-07-2025 14:13-0400 Body weight 86 kg Clarisse Joyce 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.MANAGER FRONT Work Phone: [facility] [place] 02-07-2025 14:13-0400 Diastolic blood pressure 69 mm[Hg] Clarisse Joyce 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.MANAGER FRONT Work Phone: [facility] [place] 02-07-2025 14:13-0400 Heart rate 92 /min Clarisse Joyce 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.MANAGER FRONT Work Phone: [facility] [place] 02-07-2025 14:13-0400 Respiratory rate 20 /min Clarisse Joyce 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.MANAGER FRONT Work Phone: [facility] [place] 02-07-2025 14:13-0400 SaO2% (BldA) [Mass fraction] 94 % Clarisse Joyce 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.MANAGER FRONT Work Phone: [facility] [place] 02-07-2025 14:13-0400 Systolic blood pressure 130 mm[Hg] Clarisse Joyce 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.MANAGER FRONT Work Phone: [facility] [place] 01-23-2025 22:13-0400 Body mass index (BMI) [Ratio] 29.2 kg/m2 Dr. Joon Lopez MD Work Phone: [facility] 01-05-2025 10:20-0400 Body mass index (BMI) [Ratio] 30.6 kg/m2 Krislyn Aberegg PA Work Phone: [facility] [place] 01-05-2025 10:20-0400 Body temperature 97.39 [degF] Krislyn Aberegg PA Work Phone: [facility] [place] 01-05-2025 10:20-0400 Body weight 86 kg Krislyn Aberegg PA Work Phone: [facility] [place] 01-05-2025 10:20-0400 Diastolic blood pressure 86 mm[Hg] Krislyn Aberegg PA Work Phone: [facility] [place] 01-05-2025 10:20-0400 Heart rate 83 /min Krislyn Aberegg PA Work Phone: [facility] [place] 01-05-2025 10:20-0400 Respiratory rate 20 /min Krislyn Aberegg PA Work Phone: [facility] [place] 01-05-2025 10:20-0400 SaO2% (BldA) [Mass fraction] 97 % Krislyn Aberegg PA Work Phone: [facility] [place] 01-05-2025 10:20-0400 Systolic blood pressure 135 mm[Hg] Antonino JENKINS Work Phone: [facility] [place] 01-04-2025 17:16-0400 Body height 172.[address] Joon Lopez MD Work Phone: 4(123)869-936669 [place] [address] 01-04-2025 17:16-0400 Body mass index (BMI) [Ratio] 27.5 kg/m2 Dr. Joon Lopez MD Work Phone: 5(663)[phone] [place] [address] 01-04-2025 17:16-0400 Body temperature 97.5 [degF] Dr. Joon Lopez MD Work Phone: 3(967)243-416569 [place] [address] 01-04-2025 17:16-0400 Body weight 82.[address] Joon Lopez MD Work Phone: 8(272)499-816569 [place] [address] 01-04-2025 17:16-0400 Diastolic blood pressure 68 mm[Hg] Dr. Joon Lopez MD Work Phone: 8(611)[phone] [place] [address] 01-04-2025 17:16-0400 Heart rate 74 /min Dr. Joon Lopez MD Work Phone: 6(133)374-352969 [place] [address] 01-04-2025 17:16-0400 Respiratory rate 15 /min Dr. Joon Lopez MD Work Phone: 5(314)296-571469 [place] [address] 01-04-2025 17:16-0400 SaO2% (BldA) [Mass fraction] 98 % Dr. Joon Lopez MD Work Phone: 8(465)[phone] [place] [address] 01-04-2025 17:16-0400 Systolic blood pressure 144 mm[Hg] Dr. Joon Lopez MD Work Phone: 0(875)[phone] [place] [address] 12-09-2024 07:38-0500 Body mass index (BMI) [Ratio] 27.3 kg/m2 Dr. Joon Lopez MD Work Phone: 4(808)[phone] [place] [address] 12-09-2024 07:38-0500 Body temperature 96.9 [degF] Dr. Joon Lopez MD Work Phone: [facility] 12-09-2024 07:38-0500 Body weight 81.[address] Joon Lopez MD Work Phone: [facility] 12-09-2024 07:38-0500 Diastolic blood pressure 73 mm[Hg] Dr. Joon Lopez MD Work Phone: [facility] 12-09-2024 07:38-0500 Heart rate 88 /min Dr. Joon Lopez MD Work Phone: [facility] 12-09-2024 07:38-0500 Respiratory rate 18 /min Dr. Joon Lopez MD Work Phone: [facility] 12-09-2024 07:38-0500 SaO2% (BldA) [Mass fraction] 96 % Dr. Joon Lopez MD Work Phone: [facility] 12-09-2024 07:38-0500 Systolic blood pressure 133 mm[Hg] Dr. Joon Lopez MD Work Phone: [facility] 12-07-2024 10:21-0500 Body height 167.6 cm Joon Lopez MD Work Phone: [facility] [place] 12-07-2024 10:21-0500 Body mass index (BMI) [Ratio] 28.96 kg/m2 Joon Lopez MD Work Phone: [facility] [place] 12-07-2024 10:21-0500 Body temperature 97.59 [degF] Joon Lopez MD Work Phone: [facility] [place] 12-07-2024 10:21-0500 Body weight 81.4 kg Joon Lopez MD Work Phone: [facility] [place] 12-07-2024 10:21-0500 Diastolic blood pressure 62 mm[Hg] Joon Lopez MD Work Phone: [facility] [place] 12-07-2024 10:21-0500 Heart rate 89 /min Joon Lopez MD Work Phone: [facility] [place] 12-07-2024 10:21-0500 Respiratory rate 16 /min Joon Lopez MD Work Phone: [facility] [place] 12-07-2024 10:21-0500 SaO2% (BldA) [Mass fraction] 96 % Joon Lopez MD Work Phone: [facility] [place] 12-07-2024 10:21-0500 Systolic blood pressure 112 mm[Hg] Joon Lopez MD Work Phone: [facility] [place] 11-26-2024 01:35-0500 Body mass index (BMI) [Ratio] 29.2 kg/m2 Dr. Joon Lopez MD Work Phone: [facility] 11-10-2024 11:38-0500 Body mass index (BMI) [Ratio] 28.68 kg/m2 Xochitl Castrejon MD Work Phone: [facility] [place] 11-10-2024 11:38-0500 Body weight 80.6 kg Xochitl Castrejon MD Work Phone: [facility] [place] 11-10-2024 11:38-0500 Diastolic blood pressure 76 mm[Hg] Xochitl Castrejon MD Work Phone: [facility] [place] 11-10-2024 11:38-0500 Heart rate 68 /min Xochitl Castrejon MD Work Phone: [facility] [place] 11-10-2024 11:38-0500 SaO2% (BldA) [Mass fraction] 96 % Xochitl Castrejon MD Work Phone: [facility] [place] 11-10-2024 11:38-0500 Systolic blood pressure 106 mm[Hg] Xochitl Castrejon MD Work Phone: [facility] [place] 09-24-2024 23:41-0500 Body mass index (BMI) [Ratio] 29.2 kg/m2 Dr. Joon Lopez MD Work Phone: [facility] 09-09-2024 12:03-0500 Body mass index (BMI) [Ratio] 29.04 kg/m2 Whitney Morser 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.MANAGER FRONT Work Phone: [facility] [place] 09-09-2024 12:03-0500 Body weight 81.6 kg Whitney Morser 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.MANAGER FRONT Work Phone: [facility] [place] 09-09-2024 12:03-0500 Diastolic blood pressure 60 mm[Hg] Whitney Stephany 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.MANAGER FRONT Work Phone: [facility] [place] 09-09-2024 12:03-0500 Heart rate 68 /min Whitney Morser 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.MANAGER FRONT Work Phone: [facility] [place] 09-09-2024 12:03-0500 Systolic blood pressure 98 mm[Hg] Whitney Stephany 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.MANAGER FRONT Work Phone: [facility] [place] 09-08-2024 14:08-0500 Body mass index (BMI) [Ratio] 29.46 kg/m2 Margaret Wilde APRN.MANAGER FRONT Work Phone: [facility] [place] 09-08-2024 14:08-0500 Body temperature 98.29 [degF] Margaret Wilde APRN.MANAGER FRONT Work Phone: [facility] [place] 09-08-2024 14:08-0500 Body weight 82.8 kg Margaret Wilde APRN.MANAGER FRONT Work Phone: [facility] [place] 09-08-2024 14:08-0500 Diastolic blood pressure 70 mm[Hg] Margaret Wilde APRN.MANAGER FRONT Work Phone: [facility] [place] 09-08-2024 14:08-0500 Heart rate 71 /min Margaret Wilde APRN.MANAGER FRONT Work Phone: [facility] [place] 09-08-2024 14:08-0500 Respiratory rate 18 /min Margaret Wilde APRN.MANAGER FRONT Work Phone: [facility] [place] 09-08-2024 14:08-0500 SaO2% (BldA) [Mass fraction] 97 % Margaret Wilde APRN.MANAGER FRONT Work Phone: [facility] [place] 09-08-2024 14:08-0500 Systolic blood pressure 116 mm[Hg] Margaret Wilde APRN.CNP Work Phone: [facility] [place] 08-25-2024 20:49-0400 Body mass index (BMI) [Ratio] 29.2 kg/m2 Dr. Joon Lopez MD Work Phone: [facility] 08-17-2024 11:34-0400 Body mass index (BMI) [Ratio] 28.86 kg/m2 Sandra Clutter PA-C Work Phone: [facility] [place] 08-17-2024 11:34-0400 Body weight 81.1 kg Sandra Clutter PA-C Work Phone: [facility] [place] 08-17-2024 11:34-0400 Diastolic blood pressure 60 mm[Hg] Sandra Clutter PA-C Work Phone: [facility] [place] 08-17-2024 11:34-0400 Heart rate 75 /min Sandra Clutter PA-C Work Phone: [facility] [place] 08-17-2024 11:34-0400 Respiratory rate 20 /min Sandra Clutter PA-C Work Phone: [facility] [place] 08-17-2024 11:34-0400 SaO2% (BldA) [Mass fraction] 98 % Sandra Clutter PA-C Work Phone: [facility] [place] 08-17-2024 11:34-0400 Systolic blood pressure 100 mm[Hg] Sandra Clutter PA-C Work Phone: [facility] [place] 08-03-2024 07:52-0400 Body mass index (BMI) [Ratio] 29.7 kg/m2 Xochitl Castrejon MD Work Phone: [facility] [place] 08-03-2024 07:52-0400 Body weight 83.46 kg Xochitl Castrejon MD Work Phone: [facility] [place] 08-03-2024 07:52-0400 Diastolic blood pressure 62 mm[Hg] Xochitl Castrejon MD Work Phone: [facility] [place] 08-03-2024 07:52-0400 Heart rate 84 /min Xochitl Castrejon MD Work Phone: [facility] [place] 08-03-2024 07:52-0400 Respiratory rate 16 /min Xochitl Castrejon MD Work Phone: [facility] [place] 08-03-2024 07:52-0400 Systolic blood pressure 100 mm[Hg] Xochitl Castrejon MD Work Phone: [facility] [place] 06-22-2024 09:48-0400 Body height 167.6 cm Joon Lopez MD Work Phone: [facility] [place] 06-22-2024 09:48-0400 Body mass index (BMI) [Ratio] 30.35 kg/m2 Joon Lopez MD Work Phone: [facility] [place] 06-22-2024 09:48-0400 Body temperature 97.11 [degF] Joon Lopez MD Work Phone: [facility] [place] 06-22-2024 09:48-0400 Body weight 85.3 kg Joon Lopez MD Work Phone: [facility] [place] 06-22-2024 09:48-0400 Diastolic blood pressure 56 mm[Hg] Joon Lopez MD Work Phone: [facility] [place] 06-22-2024 09:48-0400 Heart rate 86 /min Joon Lopez MD Work Phone: [facility] [place] 06-22-2024 09:48-0400 Respiratory rate 16 /min Joon Lopez MD Work Phone: [facility] [place] 06-22-2024 09:48-0400 SaO2% (BldA) [Mass fraction] 91 % Joon Lopez MD Work Phone: [facility] [place] 06-22-2024 09:48-0400 Systolic blood pressure 110 mm[Hg] Joon Lopez MD Work Phone: [facility] [place] 06-01-2024 17:02-0400 Body mass index (BMI) [Ratio] 30.78 kg/m2 Clarisse Joyce APRN.CNP Work Phone: [facility] [place] 06-01-2024 17:02-0400 Body temperature 97.81 [degF] Clarisse Joyce 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.MANAGER FRONT Work Phone: [facility] [place] 06-01-2024 17:02-0400 Body weight 86.5 kg Clarisse Joyce 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.MANAGER FRONT Work Phone: [facility] [place] 06-01-2024 17:02-0400 Diastolic blood pressure 76 mm[Hg] Clarisse Joyce 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.MANAGER FRONT Work Phone: [facility] [place] 06-01-2024 17:02-0400 Heart rate 86 /min Clarisse Joyce 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.MANAGER FRONT Work Phone: [facility] [place] 06-01-2024 17:02-0400 Respiratory rate 21 /min Clarisse Jyoce 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.MANAGER FRONT Work Phone: [facility] [place] 06-01-2024 17:02-0400 SaO2% (BldA) [Mass fraction] 98 % Clarisse Joyce 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.MANAGER FRONT Work Phone: [facility] [place] 06-01-2024 17:02-0400 Systolic blood pressure 150 mm[Hg] Clarisse Joyce 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.MANAGER FRONT Work Phone: [facility] [place] 05-11-2024 14:40-0400 Body mass index (BMI) [Ratio] 31.89 kg/m2 Joon Lopez MD Work Phone: [facility] [place] 05-11-2024 14:40-0400 Body weight 89.63 kg Joon Lopez MD Work Phone: [facility] [place] 05-11-2024 14:40-0400 Diastolic blood pressure 72 mm[Hg] Joon Lopez MD Work Phone: [facility] [place] 05-11-2024 14:40-0400 Heart rate 76 /min Joon Lopez MD Work Phone: [facility] [place] 05-11-2024 14:40-0400 Respiratory rate 18 /min Joon Lopez MD Work Phone: [facility] [place] 05-11-2024 14:40-0400 Systolic blood pressure 138 mm[Hg] Joon Lopez MD Work Phone: [facility] [place] 03-22-2024 08:43-0400 Diastolic blood pressure 72 mm[Hg] Whitney Stephany 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.MANAGER FRONT Work Phone: [facility] [place] 03-22-2024 08:43-0400 Systolic blood pressure 138 mm[Hg] Whitney Stephany 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.MANAGER FRONT Work Phone: [facility] [place] 03-22-2024 08:41-0400 Body mass index (BMI) [Ratio] 31.31 kg/m2 Whitney Stephany 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.MANAGER FRONT Work Phone: [facility] [place] 03-22-2024 08:41-0400 Body weight 88 kg Whitney Stephany 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.MANAGER FRONT Work Phone: [facility] [place] 03-22-2024 08:41-0400 Heart rate 90 /min Whitney Stephany 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.MANAGER FRONT Work Phone: [facility] [place] 03-22-2024 08:41-0400 SaO2% (BldA) [Mass fraction] 96 % Whitney Stephany 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.MANAGER FRONT Work Phone: [facility] [place] 02-03-2024 10:27-0400 Body mass index (BMI) [Ratio] 30.67 kg/m2 Joon Lopez MD Work Phone: [facility] [place] 02-03-2024 10:27-0400 Body weight 86.18 kg Joon Lopez MD Work Phone: [facility] [place] 02-03-2024 10:27-0400 Diastolic blood pressure 72 mm[Hg] Joon Lopez MD Work Phone: [facility] [place] 02-03-2024 10:27-0400 Heart rate 84 /min Joon Lopez MD Work Phone: [facility] [place] 02-03-2024 10:27-0400 Respiratory rate 16 /min oJon Lopez MD Work Phone: [facility] [place] 02-03-2024 10:27-0400 Systolic blood pressure 124 mm[Hg] Joon Lopez MD Work Phone: [facility] [place] 01-30-2024 15:02-0400 Body temperature 98.7 [degF] Dr. Joon Lopez Work Phone: [facility] 01-30-2024 15:02-0400 Diastolic blood pressure 74 mm[Hg] Dr. Joon Lopez Work Phone: [facility] 01-30-2024 15:02-0400 Heart rate 66 /min Dr. Joon Lopez Work Phone: [facility] 01-30-2024 15:02-0400 Respiratory rate 16 /min Dr. Joon Lopez Work Phone: [facility] 01-30-2024 15:02-0400 SaO2% (BldA) [Mass fraction] 100 % Dr. Joon Lopez Work Phone: [facility] 01-30-2024 15:02-0400 Systolic blood pressure 134 mm[Hg] Dr. Joon Lopez Work Phone: [facility] 01-30-2024 09:38-0400 Body height 172.[address] Joon Lopez Work Phone: [facility] 01-30-2024 09:38-0400 Body weight 87.[address] Joon Lopez Work Phone: [facility] 01-30-2024 09:02-0400 Inhaled oxygen flow rate 100 L/min Dr. Joon Lopez Work Phone: [facility] 01-29-2024 17:33-0400 Body mass index (BMI) [Ratio] 29.4 kg/m2 Dr. Joon Lopez Work Phone: [facility] 01-29-2024 17:00-0400 Diastolic blood pressure 74 mm[Hg] Dr. Joon Lopez Work Phone: [facility] 01-29-2024 17:00-0400 Heart rate 61 /min Dr. Joon Lopez Work Phone: [facility] 01-29-2024 17:00-0400 Respiratory rate 16 /min Dr. Joon Lopez Work Phone: [facility] 01-29-2024 17:00-0400 SaO2% (BldA) [Mass fraction] 96 % Dr. Joon Lopez Work Phone: [facility] 01-29-2024 17:00-0400 Systolic blood pressure 146 mm[Hg] Dr. Joon Lopez Work Phone: [facility] 01-29-2024 16:53-0400 Body temperature 98 [degF] Dr. Joon Lopez Work Phone: 1(840)[phone] [place] [address] 01-29-2024 13:35-0400 Body height 172.[address] Joon Lopez Work Phone: [facility] 01-29-2024 13:35-0400 Body mass index (BMI) [Ratio] 30.9 kg/m2 Dr. Joon Lopez Work Phone: [facility] 01-29-2024 13:35-0400 Body weight 92.[address] Joon Lopez Work Phone: [facility] 01-28-2024 23:52-0400 Blood Pressure Cuff Size NIDAL CHOUJAA DO [facility] 01-28-2024 23:52-0400 Blood Pressure Location NIDAL CHOUJAA DO [facility] 01-28-2024 23:52-0400 Blood Pressure Method NIDAL CHOUJAA DO [facility] 01-28-2024 23:52-0400 Diastolic Blood Pressure Non-Invasive 75 mm[Hg] NIDAL CHOUJAA DO [facility] 01-28-2024 23:52-0400 Heart rate 65 /min NIDAL CHOUJAA DO [facility] 01-28-2024 23:52-0400 Respiratory rate 18 /min NIDAL CHOUJAA DO [facility] 01-28-2024 23:52-0400 Systolic Blood Pressure Non-Invasive 155 mm[Hg] NIDAL CHOUJAA DO [facility] 01-28-2024 23:00-0400 Systolic Blood Pressure Non-Invasive 157 mm[Hg] NIDAL CHOUJAA DO [facility] 01-28-2024 22:06-0400 Diastolic Blood Pressure Non-Invasive 84 mm[Hg] NIDAL CHOUJAA DO [facility] 01-28-2024 22:06-0400 Heart rate 84 /min NIDAL CHOUJAA DO [facility] 01-28-2024 22:06-0400 Respiratory rate 18 /min NIDAL CHOUJAA DO [facility] 01-28-2024 22:06-0400 Systolic Blood Pressure Non-Invasive 177 mm[Hg] NIDAL CHOUJAA DO [facility] 01-28-2024 20:26-0400 Blood Pressure Cuff Size NIDAL CHOUJAA DO [facility] 01-28-2024 20:26-0400 Blood Pressure Location NIDAL CHOUJAA DO [facility] 01-28-2024 20:26-0400 Blood Pressure Method NIDAL CHOUJAA DO [facility] 01-28-2024 20:25-0400 Blood Pressure Cuff Size NIDAL CHOUJAA DO [facility] 01-28-2024 20:25-0400 Blood Pressure Location NIDAL CHOUJAA DO [facility] 01-28-2024 20:25-0400 Blood Pressure Method NIDAL CHOUJAA DO [facility] 01-28-2024 20:25-0400 Body temperature 98.06 [degF] NIDAL CHOUJAA DO [facility] 01-28-2024 20:25-0400 [facility] 83 /[facility] 01-22-2024 09:00-0400 Body temperature 98.1 [degF] Dr. Joon Lopez Work Phone: [facility] 01-22-2024 09:00-0400 Diastolic blood pressure 76 mm[Hg] Dr. Joon Lopez Work Phone: [facility] 01-22-2024 09:00-0400 Heart rate 60 /min Dr. Joon Lopez Work Phone: [facility] 01-22-2024 09:00-0400 Respiratory rate 18 /min Dr. Joon Lopez Work Phone: [facility] 01-22-2024 09:00-0400 SaO2% (BldA) [Mass fraction] 98 % Dr. Joon Lopez Work Phone: [facility] 01-22-2024 09:00-0400 Systolic blood pressure 131 mm[Hg] Dr. Joon Lopez Work Phone: [facility] 01-22-2024 06:48-0400 Body height 172.[address] Joon Lopez Work Phone: [facility] 01-22-2024 06:48-0400 Body mass index (BMI) [Ratio] 29.2 kg/m2 Dr. Joon Lopez Work Phone: [facility] 01-22-2024 06:48-0400 Body weight 87.[address] Joon Lopez Work Phone: [facility] 01-06-2024 08:34-0400 Body mass index (BMI) [Ratio] 29.6 kg/m2 Dr. Joon Lopez Work Phone: [facility] 01-06-2024 08:34-0400 Body weight 88.[address] Joon Lopez Work Phone: 5(423)[phone] [place] [address] 01-06-2024 08:34-0400 Diastolic blood pressure 80 mm[Hg] Dr. Joon oLpez Work Phone: 4(472)[phone] [place] [address] 01-06-2024 08:34-0400 Heart rate 86 /min Dr. Joon Lopez Work Phone: 9(781)424-270969 [place] [address] 01-06-2024 08:34-0400 Respiratory rate 20 /min Dr. Joon Lopez Work Phone: [facility] 01-06-2024 08:34-0400 SaO2% (BldA) [Mass fraction] 93 % Dr. Joon Lopez Work Phone: [facility] 01-06-2024 08:34-0400 Systolic blood pressure 137 mm[Hg] Dr. Joon Lopez Work Phone: [facility] 01-05-2024 14:45-0400 Body mass index (BMI) [Ratio] 31.31 kg/m2 Joon Lopez MD Work Phone: [facility] [place] 01-05-2024 14:45-0400 Body temperature 98.49 [degF] Joon Lopez MD Work Phone: [facility] [place] 01-05-2024 14:45-0400 Body weight 88 kg Joon Lopez MD Work Phone: [facility] [place] 01-05-2024 14:45-0400 Diastolic blood pressure 68 mm[Hg] Joon Lopez MD Work Phone: [facility] [place] 01-05-2024 14:45-0400 Heart rate 60 /min Joon Lopez MD Work Phone: [facility] [place] 01-05-2024 14:45-0400 Systolic blood pressure 120 mm[Hg] Joon Lopez MD Work Phone: [facility] [place] 01-01-2024 13:03-0500 Body mass index (BMI) [Ratio] 29.7 kg/m2 Dr. Joon Lopez Work Phone: [facility] 01-01-2024 13:03-0500 Body weight 88.[address] Joon Lopez Work Phone: [facility] 12-31-2023 13:14-0500 Body temperature 98.4 [degF] Dr. Joon Lopez Work Phone: [facility] 12-31-2023 13:14-0500 Diastolic blood pressure 72 mm[Hg] Dr. Joon Lopez Work Phone: [facility] 12-31-2023 13:14-0500 Heart rate 62 /min Dr. Joon Lopez Work Phone: [facility] 12-31-2023 13:14-0500 Respiratory rate 12 /min Dr. Joon Lopez Work Phone: [facility] 12-31-2023 13:14-0500 SaO2% (BldA) [Mass fraction] 97 % Dr. Joon Lopez Work Phone: [facility] 12-31-2023 13:14-0500 Systolic blood pressure 128 mm[Hg] Dr. Joon Lopez Work Phone: [facility] 12-31-2023 10:40-0500 Body temperature 98.1 [degF] Dr. Joon Lopez Work Phone: 2(516)885-668240 [place] [address] 12-31-2023 10:40-0500 Diastolic blood pressure 83 mm[Hg] Dr. Joon Lopez Work Phone: 2(369)929-560269 [place] [address] 12-31-2023 10:40-0500 Heart rate 66 /min Dr. Joon Lopez Work Phone: 4(271)043-220969 [place] [address] 12-31-2023 10:40-0500 Respiratory rate 14 /min Dr. Joon Lopez Work Phone: 8(039)511-237969 [place] [address] 12-31-2023 10:40-0500 SaO2% (BldA) [Mass fraction] 96 % Dr. Joon Lopez Work Phone: 4(868)332-278369 [place] [address] 12-31-2023 10:40-0500 Systolic blood pressure 132 mm[Hg] Dr. Joon Lopez Work Phone: 4(789)803-354269 [place] [address] 12-31-2023 03:36-0500 Body mass index (BMI) [Ratio] 29.2 kg/m2 Dr. Joon Lopez Work Phone: 8(584)719-606569 [place] [address] 12-31-2023 03:36-0500 Body weight 87.[address] Joon Lopez Work Phone: 5(304)312-690669 [place] [address] 12-30-2023 15:52-0500 Body height 172.[address] Joon Lopez Work Phone: 4(995)358-688369 [place] [address] 12-30-2023 10:44-0500 Inhaled oxygen flow rate 2 L/min Dr. Joon Lopez Work Phone: 0(328)866-909269 [place] [address] 12-02-2023 12:43-0500 Body height 172.[address] Joon Lopez Work Phone: 3(022)511-995169 [place] [address] 12-02-2023 12:43-0500 Body weight 85.[address] Joon Lopez Work Phone: 5(098)571-286569 [place] [address] 12-02-2023 12:43-0500 Heart rate 91 /min Dr. Joon Lopez Work Phone: 1(621)561-269840 [place] [address] 12-02-2023 12:43-0500 SaO2% (BldA) [Mass fraction] 99 % Dr. Joon Lopez Work Phone: 1(432)339-967940 [place] [address] 11-28-2023 23:41-0500 Diastolic blood pressure 66 mm[Hg] Dr. Joon Lopez Work Phone: 1(005)148-015140 [place] [address] 11-28-2023 23:41-0500 Heart rate 64 /min Dr. Joon Lopez Work Phone: 4(194)504-954169 [place] [address] 11-28-2023 23:41-0500 Respiratory rate 15 /min Dr. Joon Lopez Work Phone: 7(815)830-502469 [place] [address] 11-28-2023 23:41-0500 SaO2% (BldA) [Mass fraction] 99 % Dr. Joon Lopez Work Phone: 7(286)249-380340 [place] [address] 11-28-2023 23:41-0500 Systolic blood pressure 136 mm[Hg] Dr. Joon Lopez Work Phone: 5(589)174-134369 [place] [address] 11-28-2023 22:45-0500 Body height 172.[address] Joon Lopez Work Phone: 9(731)242-503969 [place] [address] 11-28-2023 22:45-0500 Body mass index (BMI) [Ratio] 30.1 kg/m2 Dr. Joon Lopez Work Phone: 9(088)582-553469 [place] [address] 11-28-2023 22:45-0500 Body temperature 98.6 [degF] Dr. Joon Lopez Work Phone: 8(321)987-366869 [place] [address] 11-28-2023 22:45-0500 Body weight 89.[address] Joon Lopez Work Phone: 1(698)831-188569 [place] [address] 11-26-2023 06:33-0500 Body mass index (BMI) [Ratio] 28.6 kg/m2 Dr. Joon Lopez Work Phone: 5(467)273-937369 [place] [address] 11-26-2023 06:33-0500 Body temperature 97.3 [degF] Dr. Joon Lopez Work Phone: 1(580)216-744869 [place] [address] 11-26-2023 06:33-0500 Body weight 85.[address] Joon Lopez Work Phone: 0(939)511-162869 [place] [address] 11-26-2023 06:33-0500 Diastolic blood pressure 78 mm[Hg] Dr. Joon Lopez Work Phone: 5(420)164-930369 [place] [address] 11-26-2023 06:33-0500 Heart rate 90 /min Dr. Joon Lopez Work Phone: 2(010)008-955069 [place] [address] 11-26-2023 06:33-0500 Respiratory rate 20 /min Dr. Joon Lopez Work Phone: 2(473)406-643269 [place] [address] 11-26-2023 06:33-0500 SaO2% (BldA) [Mass fraction] 98 % Dr. Joon Lopez Work Phone: 3(440)400-226769 [place] [address] 11-26-2023 06:33-0500 Systolic blood pressure 137 mm[Hg] Dr. Joon Lopez Work Phone: 8(542)203-775569 [place] [address] 11-09-2023 14:56-0500 Body mass index (BMI) [Ratio] 30 kg/m2 Dr. Joon Lopez Work Phone: 6(222)902-678669 [place] [address] 11-09-2023 14:56-0500 Body weight 89.[address] Joon Lopez Work Phone: 1(632)326-142869 [place] [address] 11-09-2023 12:48-0500 Body height 172.[address] Joon Lopez Work Phone: 3(787)348-148269 [place] [address] 11-09-2023 12:48-0500 Body temperature 97.2 [degF] Dr. Joon Lopez Work Phone: 9(054)171-528869 [place] [address] 11-09-2023 12:48-0500 Diastolic blood pressure 89 mm[Hg] Dr. Joon Lopez Work Phone: 4(636)867-243369 [place] [address] 11-09-2023 12:48-0500 Heart rate 84 /min Dr. Joon Lopez Work Phone: 8(598)569-202569 [place] [address] 11-09-2023 12:48-0500 Respiratory rate 16 /min Dr. Joon Lopez Work Phone: 4(087)646-598069 [place] [address] 11-09-2023 12:48-0500 SaO2% (BldA) [Mass fraction] 97 % Dr. Joon Lopez Work Phone: 8(595)477-716469 [place] [address] 11-09-2023 12:48-0500 Systolic blood pressure 151 mm[Hg] Dr. Joon Lopez Work Phone: 0(313)982-370069 [place] [address] 10-02-2023 01:20-0500 Diastolic blood pressure 84 mm[Hg] Dr. Joon Lopez Work Phone: 6(445)571-507969 [place] [address] 10-02-2023 01:20-0500 Systolic blood pressure 108 mm[Hg] Dr. Joon Lopez Work Phone: 0(044)131-483969 [place] [address] 10-02-2023 00:27-0500 Heart rate 62 /min Dr. Joon Lopez Work Phone: 4(637)305-748569 [place] [address] 10-01-2023 23:29-0500 Body height 172.[address] Joon Lopez Work Phone: 5(184)499-335469 [place] [address] 10-01-2023 23:29-0500 Body mass index (BMI) [Ratio] 30.9 kg/m2 Dr. Joon Lopez Work Phone: 5(732)617-099269 [place] [address] 10-01-2023 23:29-0500 Body temperature 98 [degF] Dr. Joon Lopez Work Phone: 7(724)925-604069 [place] [address] 10-01-2023 23:29-0500 Body weight 92.[address] Joon Lopez Work Phone: 1(275)152-917769 [place] [address] 10-01-2023 23:29-0500 Respiratory rate 18 /min Dr. Joon Lopez Work Phone: 6(320)602-877469 [place] [address] 10-01-2023 23:29-0500 SaO2% (BldA) [Mass fraction] 97 % Dr. Joon Lopez Work Phone: [facility] 09-23-2023 09:05-0500 Body weight 89.81 kg Whitney Stephany 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.MANAGER FRONT Work Phone: [facility] 09-23-2023 09:05-0500 Diastolic blood pressure 70 mm[Hg] Whitney Stephany 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.MANAGER FRONT Work Phone: [facility] 09-23-2023 09:05-0500 Heart rate 83 /min Whitney Stephany 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.MANAGER FRONT Work Phone: [facility] 09-23-2023 09:05-0500 SaO2% (BldA) [Mass fraction] 97 % Whitney Stephany 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.MANAGER FRONT Work Phone: [facility] 09-23-2023 09:05-0500 Systolic blood pressure 128 mm[Hg] Whitney Stephany 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.MANAGER FRONT Work Phone: [facility] 09-03-2023 08:05-0500 Body mass index (BMI) [Ratio] 29.5 kg/m2 Dr. Joon Lopez Work Phone: [facility] 09-03-2023 08:05-0500 Body temperature 97 [degF] Dr. Joon Lopez Work Phone: [facility] 09-03-2023 08:05-0500 Diastolic blood pressure 87 mm[Hg] Dr. Joon Lopez Work Phone: [facility] 09-03-2023 08:05-0500 Heart rate 91 /min Dr. Joon Lopez Work Phone: [facility] 09-03-2023 08:05-0500 SaO2% (BldA) [Mass fraction] 97 % Dr. Joon Lopez Work Phone: [facility] 09-03-2023 08:05-0500 Systolic blood pressure 176 mm[Hg] Dr. Joon Lopez Work Phone: 0(719)684-568240 [place] [address] 09-01-2023 17:52-0500 Diastolic blood pressure 83 mm[Hg] Dr. Joon Lopez Work Phone: 8(908)885-716969 [place] [address] 09-01-2023 17:52-0500 Heart rate 70 /min Dr. Joon Lopez Work Phone: 5(370)017-866969 [place] [address] 09-01-2023 17:52-0500 Respiratory rate 16 /min Dr. Joon Lopez Work Phone: 1(319)493-622869 [place] [address] 09-01-2023 17:52-0500 Systolic blood pressure 150 mm[Hg] Dr. Joon Lopez Work Phone: 6(869)047-927869 [place] [address] 09-01-2023 15:01-0500 Body height 172.[address] Joon Lopez Work Phone: 1(639)076-630569 [place] [address] 09-01-2023 15:01-0500 Body temperature 97.4 [degF] Dr. Joon Lopez Work Phone: 7(587)030-876969 [place] [address] 09-01-2023 15:01-0500 SaO2% (BldA) [Mass fraction] 99 % Dr. Joon Lopez Work Phone: 8(776)756-118669 [place] [address] 08-26-2023 00:48-0400 Body weight 87.[address] Joon Lopez Work Phone: 5(597)617-219069 [place] [address] 08-26-2023 00:48-0400 Respiratory rate 18 /min Dr. Joon Lopez Work Phone: 2(586)641-513869 [place] [address] 08-13-2023 08:15-0400 Body mass index (BMI) [Ratio] 29.5 kg/m2 Dr. Joon Lopez Work Phone: 0(863)254-243269 [place] [address] 08-13-2023 08:15-0400 Body temperature 97.6 [degF] Dr. Joon Lopez Work Phone: 0(640)305-840769 [place] [address] 08-13-2023 08:15-0400 Diastolic blood pressure 99 mm[Hg] Dr. Joon Lopez Work Phone: 9(481)955-257440 [place] [address] 08-13-2023 08:15-0400 Heart rate 95 /min Dr. Joon Lopez Work Phone: 3(080)876-503769 [place] [address] 08-13-2023 08:15-0400 Respiratory rate 18 /min Dr. Joon Lopez Work Phone: 3(387)811-047369 [place] [address] 08-13-2023 08:15-0400 Systolic blood pressure 160 mm[Hg] Dr. Joon Lopez Work Phone: 9(273)732-478669 [place] [address] 07-26-2023 02:45-0400 Body mass index (BMI) [Ratio] 29.2 kg/m2 Dr. Joon Lopez Work Phone: 6(536)298-749069 [place] [address] 07-26-2023 00:40-0400 Body weight 87.[address] Joon Lopez Work Phone: 1(204)874-954769 [place] [address] 07-23-2023 08:09-0400 Body mass index (BMI) [Ratio] 29.5 kg/m2 Dr. Joon Lopez Work Phone: 8(521)462-679569 [place] [address] 07-23-2023 08:09-0400 Body temperature 95.5 [degF] Dr. Joon Lopez Work Phone: 8(234)337-261269 [place] [address] 07-23-2023 08:09-0400 Diastolic blood pressure 74 mm[Hg] Dr. Joon Lopez Work Phone: 7(963)748-364069 [place] [address] 07-23-2023 08:09-0400 Heart rate 88 /min Dr. Joon Lopez Work Phone: 9(328)673-107169 [place] [address] 07-23-2023 08:09-0400 Respiratory rate 20 /min Dr. Joon Lopez Work Phone: 2(152)541-010069 [place] [address] 07-23-2023 08:09-0400 Systolic blood pressure 138 mm[Hg] Dr. Joon Lopez Work Phone: 2(857)342-268769 [place] [address] 07-10-2023 11:27-0400 Body height 172.[address] Joon Lopez Work Phone: 3(782)079-662369 [place] [address] 07-10-2023 11:27-0400 Body mass index (BMI) [Ratio] 29.6 kg/m2 Dr. Joon Lopez Work Phone: 1(839)997-858369 [place] [address] 07-10-2023 11:27-0400 Body weight 88.[address] Joon Lopez Work Phone: 7(388)203-274569 [place] [address] 07-10-2023 11:27-0400 Diastolic blood pressure 79 mm[Hg] Dr. Joon Lopez Work Phone: 1(381)315-164169 [place] [address] 07-10-2023 11:27-0400 Heart rate 82 /min Dr. Joon Lopez Work Phone: 5(270)917-383069 [place] [address] 07-10-2023 11:27-0400 Respiratory rate 16 /min Dr. Joon Loepz Work Phone: 7(103)069-494469 [place] [address] 07-10-2023 11:27-0400 Systolic blood pressure 124 mm[Hg] Dr. Joon Lopez Work Phone: 6(614)843-595069 [place] [address] 06-26-2023 00:26-0400 Body weight 87.[address] Joon Lopez Work Phone: 1(171)509-957169 [place] [address] 06-25-2023 22:54-0400 Body mass index (BMI) [Ratio] 29.2 kg/m2 Dr. Joon Lopez Work Phone: 3(572)268-192869 [place] [address] 06-25-2023 08:04-0400 Body mass index (BMI) [Ratio] 29.5 kg/m2 Dr. Joon Lopez Work Phone: 2(202)276-932469 [place] [address] 06-25-2023 08:04-0400 Body temperature 97.4 [degF] Dr. Joon Lopez Work Phone: 5(329)100-115069 [place] [address] 06-25-2023 08:04-0400 Diastolic blood pressure 94 mm[Hg] Dr. Joon Lopez Work Phone: 6(178)390-840569 [place] [address] 06-25-2023 08:04-0400 Heart rate 90 /min Dr. Joon Lopez Work Phone: 6(956)643-910969 [place] [address] 06-25-2023 08:04-0400 Respiratory rate 20 /min Dr. Joon Lopez Work Phone: 7(582)619-812769 [place] [address] 06-25-2023 08:04-0400 Systolic blood pressure 147 mm[Hg] Dr. Joon Lopez Work Phone: 4(195)476-464069 [place] [address] 06-12-2023 08:53-0400 Body height 172.[address] Joon Lopez Work Phone: 6(384)623-796269 [place] [address] 06-12-2023 08:53-0400 Body mass index (BMI) [Ratio] 29.3 kg/m2 Dr. Joon Lopez Work Phone: 4(556)559-291969 [place] [address] 06-12-2023 08:53-0400 Body temperature 97.6 [degF] Dr. Joon Lopez Work Phone: 5(649)512-840569 [place] [address] 06-12-2023 08:53-0400 Body weight 87.[address] Joon Lopez Work Phone: 8(346)577-440369 [place] [address] 06-12-2023 08:53-0400 Diastolic blood pressure 90 mm[Hg] Dr. Joon Lopez Work Phone: 7(430)445-307269 [place] [address] 06-12-2023 08:53-0400 Heart rate 83 /min Dr. Joon Lopez Work Phone: 6(110)686-004869 [place] [address] 06-12-2023 08:53-0400 Respiratory rate 18 /min Dr. Joon Lopez Work Phone: 1(116)987-736669 [place] [address] 06-12-2023 08:53-0400 SaO2% (BldA) [Mass fraction] 97 % Dr. Joon Lopez Work Phone: 1(159)094-141569 [place] [address] 06-12-2023 08:53-0400 Systolic blood pressure 131 mm[Hg] Dr. Joon Lopez Work Phone: 9(231)821-041969 [place] [address] 05-28-2023 07:57-0400 Body weight 87.[address] Joon Lopez Work Phone: 0(616)453-918540 [place] [address] 05-21-2023 13:10-0400 Respiratory rate 16 /min Dr. Joon Lopez Work Phone: 8(120)721-021740 [place] [address] 05-21-2023 11:10-0400 Body height 172.[address] Joon Lopez Work Phone: 9(695)221-592640 [place] [address] 05-21-2023 11:10-0400 Body mass index (BMI) [Ratio] 29.5 kg/m2 Dr. Joon Lopez Work Phone: 9(184)805-452769 [place] [address] 05-21-2023 11:10-0400 Body temperature 96.2 [degF] Dr. Joon Lopez Work Phone: 6(886)360-865469 [place] [address] 05-21-2023 11:10-0400 Body weight 87.[address] Joon Lopez Work Phone: 2(944)897-688140 [place] [address] 05-21-2023 11:10-0400 Diastolic blood pressure 97 mm[Hg] Dr. Joon Lopez Work Phone: 3(706)966-126140 [place] [address] 05-21-2023 11:10-0400 Heart rate 87 /min Dr. Joon Lopez Work Phone: 0(210)640-627440 [place] [address] 05-21-2023 11:10-0400 SaO2% (BldA) [Mass fraction] 97 % Dr. Joon Lopez Work Phone: 3(655)581-608940 [place] [address] 05-21-2023 11:10-0400 Systolic blood pressure 136 mm[Hg] Dr. Joon Lopez Work Phone: 1(291)991-032940 [place] [address] 05-12-2023 08:54-0400 Body weight 87.54 kg Whitney Hammond 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.MANAGER FRONT Work Phone: [facility] 05-12-2023 08:54-0400 Diastolic blood pressure 78 mm[Hg] Whitney Hammond APRN.MANAGER FRONT Work Phone: [facility] 05-12-2023 08:54-0400 Heart rate 82 /min Whitney Hammond 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.MANAGER FRONT Work Phone: [facility] 05-12-2023 08:54-0400 SaO2% (BldA) [Mass fraction] 98 % Whitney Hammond 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.MANAGER FRONT Work Phone: [facility] 05-12-2023 08:54-0400 Systolic blood pressure 134 mm[Hg] Whitney Hammond 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.MANAGER FRONT Work Phone: [facility] 05-09-2023 09:49-0400 Body height 172.[address] Joon Lopez Work Phone: [facility] 05-09-2023 09:49-0400 Body mass index (BMI) [Ratio] 29.6 kg/m2 Dr. Joon Lopez Work Phone: [facility] 05-09-2023 09:49-0400 Body temperature 97.9 [degF] Dr. Joon Lopez Work Phone: [facility] 05-09-2023 09:49-0400 Body weight 88.[address] Joon Lopez Work Phone: [facility] 05-09-2023 09:49-0400 Diastolic blood pressure 78 mm[Hg] Dr. Joon Lopez Work Phone: [facility] 05-09-2023 09:49-0400 Heart rate 82 /min Dr. Joon Lopez Work Phone: [facility] 05-09-2023 09:49-0400 Respiratory rate 14 /min Dr. Joon Lopez Work Phone: [facility] 05-09-2023 09:49-0400 SaO2% (BldA) [Mass fraction] 99 % Dr. Joon Lopez Work Phone: [facility] 05-09-2023 09:49-0400 Systolic blood pressure 148 mm[Hg] Dr. Joon Lopez Work Phone: 0(301)134-124740 [place] [address] 04-24-2023 22:20-0400 Body mass index (BMI) [Ratio] 29.2 kg/m2 Dr. Joon Lopez Work Phone: 0(242)008-474340 [place] [address] 04-16-2023 10:14-0400 Body height 172.[address] Joon Lopez Work Phone: 6(722)150-233869 [place] [address] 04-16-2023 10:11-0400 Body mass index (BMI) [Ratio] 29.3 kg/m2 Dr. Joon Lopez Work Phone: 9(082)220-952940 [place] [address] 04-16-2023 10:11-0400 Body temperature 98.1 [degF] Dr. Joon Lopez Work Phone: 9(271)220-848140 [place] [address] 04-16-2023 10:11-0400 Body weight 87.[address] Joon Lopez Work Phone: 3(586)576-827740 [place] [address] 04-16-2023 10:11-0400 Diastolic blood pressure 81 mm[Hg] Dr. Joon Lopez Work Phone: 9(575)905-604540 [place] [address] 04-16-2023 10:11-0400 Heart rate 88 /min Dr. Joon Lopez Work Phone: 4(933)306-803940 [place] [address] 04-16-2023 10:11-0400 Respiratory rate 18 /min Dr. Joon Lopez Work Phone: 2(777)609-377440 [place] [address] 04-16-2023 10:11-0400 SaO2% (BldA) [Mass fraction] 96 % Dr. Joon Lopez Work Phone: 2(267)032-926840 [place] [address] 04-16-2023 10:11-0400 Systolic blood pressure 156 mm[Hg] Dr. Joon Lopez Work Phone: 5(704)676-957840 [place] [address] 04-16-2023 07:09-0400 Body weight 88.45 kg Trini Tang APRN.PACKAGING OPERATOR Work Phone: [facility] 04-16-2023 07:09-0400 Diastolic blood pressure 80 mm[Hg] Trini Tang 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.PACKAGING OPERATOR Work Phone: [facility] 04-16-2023 07:09-0400 Heart rate 80 /min Triniallen Millers 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.PACKAGING OPERATOR Work Phone: [facility] 04-16-2023 07:09-0400 Respiratory rate 16 /min Trini Tang 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.PACKAGING OPERATOR Work Phone: [facility] 04-16-2023 07:09-0400 SaO2% (BldA) [Mass fraction] 98 % Triniallen Millers 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.PACKAGING OPERATOR Work Phone: [facility] 04-16-2023 07:09-0400 Systolic blood pressure 120 mm[Hg] Trini Millers 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.PACKAGING OPERATOR Work Phone: [facility] 04-03-2023 12:28-0400 Body temperature 96.4 [degF] Joon Lopez MD Work Phone: [facility] 04-03-2023 12:28-0400 Body weight 91.63 kg Joon Lopez MD Work Phone: [facility] 04-03-2023 12:28-0400 Diastolic blood pressure 83 mm[Hg] Joon Lopez MD Work Phone: [facility] 04-03-2023 12:28-0400 Heart rate 86 /min Joon Lopez MD Work Phone: [facility] 04-03-2023 12:28-0400 Respiratory rate 18 /min Joon Lopez MD Work Phone: [facility] 04-03-2023 12:28-0400 SaO2% (BldA) [Mass fraction] 96 % Joon Lopez MD Work Phone: [facility] 04-03-2023 12:28-0400 Systolic blood pressure 149 mm[Hg] Joon Lopez MD Work Phone: [facility] 03-31-2023 09:09-0400 Body weight 91.17 kg Whitney Hammond 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.MANAGER FRONT Work Phone: [facility] 03-31-2023 09:09-0400 Diastolic blood pressure 72 mm[Hg] Whitney Stephany 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.MANAGER FRONT Work Phone: [facility] 03-31-2023 09:09-0400 Heart rate 81 /min Whitney Stephany 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.MANAGER FRONT Work Phone: [facility] 03-31-2023 09:09-0400 SaO2% (BldA) [Mass fraction] 97 % Whitney Stephany 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.MANAGER FRONT Work Phone: [facility] 03-31-2023 09:09-0400 Systolic blood pressure 128 mm[Hg] Whitney Stephany 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.MANAGER FRONT Work Phone: [facility] 03-18-2023 13:06-0400 Diastolic blood pressure 74 mm[Hg] Dr. Joon Lopez Work Phone: [facility] 03-18-2023 13:06-0400 Heart rate 79 /min Dr. Joon Lopez Work Phone: [facility] 03-18-2023 13:06-0400 Respiratory rate 18 /min Dr. Joon Lopez Work Phone: 9(636)708-218840 [place] [address] 03-18-2023 13:06-0400 SaO2% (BldA) [Mass fraction] 100 % Dr. Joon Lopez Work Phone: [facility] 03-18-2023 13:06-0400 Systolic blood pressure 121 mm[Hg] Dr. Joon Lopez Work Phone: [facility] 03-18-2023 11:02-0400 Body mass index (BMI) [Ratio] 31.6 kg/m2 Dr. Joon Lopez Work Phone: [facility] 03-18-2023 11:02-0400 Body temperature 98.4 [degF] Dr. Joon Lopez Work Phone: 1(346)885-794740 [place] [address] 03-18-2023 11:02-0400 Body weight 94.[address] Joon Lopez Work Phone: 7(013)476-510840 [place] [address] 03-17-2023 23:59-0400 Diastolic blood pressure 68 mm[Hg] Dr. Joon Lopez Work Phone: [facility] 03-17-2023 23:59-0400 Heart rate 78 /min Dr. Joon Lopez Work Phone: [facility] 03-17-2023 23:59-0400 Respiratory rate 18 /min Dr. Joon Lopez Work Phone: [facility] 03-17-2023 23:59-0400 SaO2% (BldA) [Mass fraction] 97 % Dr. Joon Lopez Work Phone: [facility] 03-17-2023 23:59-0400 Systolic blood pressure 145 mm[Hg] Dr. Joon Lopez Work Phone: [facility] 03-17-2023 19:52-0400 Body mass index (BMI) [Ratio] 31.6 kg/m2 Dr. Joon Lopez Work Phone: [facility] 03-17-2023 19:52-0400 Body weight 91.[address] Joon Lopez Work Phone: [facility] 03-17-2023 18:47-0400 Body temperature 97.2 [degF] Dr. Joon Lopez Work Phone: [facility] 12-26-2022 11:33-0500 Body temperature 96.91 [degF] Joon Lopez MD Work Phone: [facility] 12-26-2022 11:33-0500 Body weight 90.27 kg Joon Lopez MD Work Phone: [facility] 12-26-2022 11:33-0500 Diastolic blood pressure 78 mm[Hg] Joon Lopez MD Work Phone: [facility] 12-26-2022 11:33-0500 Heart rate 91 /min Joon Lopez MD Work Phone: [facility] [place] 12-26-2022 11:33-0500 Respiratory rate 18 /min Joon Lopez MD Work Phone: [facility] [place] 12-26-2022 11:33-0500 SaO2% (BldA) [Mass fraction] 97 % Joon Lopez MD Work Phone: [facility] [place] 12-26-2022 11:33-0500 Systolic blood pressure 124 mm[Hg] Joon Lopez MD Work Phone: [facility] [place] 12-23-2022 23:01-0500 Body mass index (BMI) [Ratio] 29.2 kg/m2 Dr. Joon Lopez Work Phone: [facility] 12-04-2022 10:57-0500 Body temperature 98.4 [degF] Daron Singh MD Work Phone: [facility] [place] 12-04-2022 10:57-0500 Body weight 92.81 kg Daron Singh MD Work Phone: [facility] [place] 12-04-2022 10:57-0500 Diastolic blood pressure 78 mm[Hg] Daron Singh MD Work Phone: [facility] [place] 12-04-2022 10:57-0500 Heart rate 90 /min Daron Singh MD Work Phone: [facility] [place] 12-04-2022 10:57-0500 Respiratory rate 18 /min Daron Singh MD Work Phone: [facility] [place] 12-04-2022 10:57-0500 SaO2% (BldA) [Mass fraction] 97 % Daron Singh MD Work Phone: [facility] [place] 12-04-2022 10:57-0500 Systolic blood pressure 142 mm[Hg] Daron Singh MD Work Phone: [facility] [place] 10-26-2022 03:54-0500 Body mass index (BMI) [Ratio] 29.2 kg/m2 Dr. Joon Lopez Work Phone: 5(712)461-185052 [place] [address] 10-14-2022 13:57-0500 Body height 167.[address] Joon Lopez Work Phone: 7(797)815-375869 [place] [address] 10-14-2022 13:48-0500 Body mass index (BMI) [Ratio] 31.6 kg/m2 Dr. Joon Lopez Work Phone: 8(744)333-374069 [place] [address] 10-14-2022 13:48-0500 Body temperature 97.5 [degF] Dr. Joon Lopez Work Phone: 4(074)347-710569 [place] [address] 10-14-2022 13:48-0500 Body weight 88.[address] Joon Lopez Work Phone: 3(554)534-502169 [place] [address] 10-14-2022 13:48-0500 Diastolic blood pressure 94 mm[Hg] Dr. Joon Lopez Work Phone: 8(466)791-121069 [place] [address] 10-14-2022 13:48-0500 Heart rate 88 /min Dr. Joon Lopez Work Phone: 2(730)670-494169 [place] [address] 10-14-2022 13:48-0500 Respiratory rate 18 /min Dr. Joon Lopez Work Phone: 3(661)334-840869 [place] [address] 10-14-2022 13:48-0500 SaO2% (BldA) [Mass fraction] 97 % Dr. Joon Lopez Work Phone: 4(302)659-771169 [place] [address] 10-14-2022 13:48-0500 Systolic blood pressure 152 mm[Hg] Dr. Joon Lopez Work Phone: 1(382)217-283769 [place] [address] 09-24-2022 23:13-0500 Body mass index (BMI) [Ratio] 29.2 kg/m2 Dr. Joon Lopez Work Phone: 8(037)834-238669 [place] [address] 09-08-2022 08:45-0500 Body height 167.[address] Joon Lopez Work Phone: 7(594)055-176040 [place] [address] Work Phone: 09-08-2022 08:39-0500 Body mass index (BMI) [Ratio] 31.8 kg/m2 Dr. Joon Lopez Work Phone: 3(927)419-561269 [place] [address] 09-08-2022 08:39-0500 Body weight 89.[address] Joon Lopez Work Phone: 6(941)579-138869 [place] [address] 09-08-2022 08:39-0500 Diastolic blood pressure 84 mm[Hg] Dr. Joon Loepz Work Phone: 9(088)560-478069 [place] [address] 09-08-2022 08:39-0500 Heart rate 82 /min Dr. Joon Lopez Work Phone: 5(533)366-557569 [place] [address] 09-08-2022 08:39-0500 Respiratory rate 18 /min Dr. Joon Lopez Work Phone: 9(238)719-918769 [place] [address] 09-08-2022 08:39-0500 SaO2% (BldA) [Mass fraction] 97 % Dr. Joon Lopez Work Phone: 4(340)715-971369 [place] [address] 09-08-2022 08:39-0500 Systolic blood pressure 141 mm[Hg] Dr. Joon Lopez Work Phone: 7(057)612-961169 [place] [address] 08-28-2022 11:05-0400 Body mass index (BMI) [Ratio] 31.4 kg/m2 Dr. Joon Lopez Work Phone: 0(189)736-869969 [place] [address] 08-28-2022 11:05-0400 Body temperature 97.9 [degF] Dr. Joon Lopez Work Phone: 1(071)623-063740 [place] [address] 08-28-2022 11:05-0400 Body weight 88.[address] Joon Lopez Work Phone: 6(943)451-137569 [place] [address] 08-28-2022 11:05-0400 Diastolic blood pressure 90 mm[Hg] Dr. Joon Lopez Work Phone: 5(372)218-324440 [place] [address] 08-28-2022 11:05-0400 Heart rate 83 /min Dr. Joon Lopez Work Phone: 2(877)405-880640 [place] [address] 08-28-2022 11:05-0400 Respiratory rate 16 /min Dr. Joon Lopez Work Phone: [facility] 08-28-2022 11:05-0400 SaO2% (BldA) [Mass fraction] 98 % Dr. Joon Lopez Work Phone: [facility] 08-28-2022 11:05-0400 Systolic blood pressure 142 mm[Hg] Dr. Joon Lopez Work Phone: [facility] 08-04-2022 08:09-0400 Body mass index (BMI) [Ratio] 29.7 kg/m2 Dr. Joon Lopez Work Phone: [facility] Work Phone: 08-04-2022 08:09-0400 Body weight 88.[address] Joon Lopez Work Phone: [facility] Work Phone: 08-04-2022 08:09-0400 Diastolic blood pressure 84 mm[Hg] Dr. Joon Lopez Work Phone: [facility] Work Phone: 08-04-2022 08:09-0400 Heart rate 88 /min Dr. Joon Lopez Work Phone: [facility] Work Phone: 08-04-2022 08:09-0400 Respiratory rate 18 /min Dr. Joon Lopez Work Phone: [facility] Work Phone: 08-04-2022 08:09-0400 SaO2% (BldA) [Mass fraction] 99 % Dr. Joon Lopez Work Phone: [facility] Work Phone: 08-04-2022 08:09-0400 Systolic blood pressure 150 mm[Hg] Dr. Joon Lopez Work Phone: [facility] Work Phone: 07-31-2022 13:14-0400 Diastolic blood pressure 86 mm[Hg] Dr. Joon Lopez Work Phone: [facility] Work Phone: 07-31-2022 13:14-0400 Heart rate 71 /min Dr. Joon Lopez Work Phone: [facility] Work Phone: 07-31-2022 13:14-0400 Respiratory rate 15 /min Dr. Joon Lopez Work Phone: [facility] Work Phone: 07-31-2022 13:14-0400 SaO2% (BldA) [Mass fraction] 98 % Dr. Joon Lopez Work Phone: [facility] Work Phone: 07-31-2022 13:14-0400 Systolic blood pressure 120 mm[Hg] Dr. Joon Lopez Work Phone: [facility] Work Phone: 07-31-2022 11:27-0400 Body temperature 97.9 [degF] Dr. Joon Lopez Work Phone: [facility] Work Phone: 07-31-2022 08:57-0400 Body height 172.[address] Joon Lopez Work Phone: [facility] Work Phone: 07-31-2022 08:57-0400 Body mass index (BMI) [Ratio] 29.7 kg/m2 Dr. Joon Lopez Work Phone: [facility] Work Phone: 07-31-2022 08:57-0400 Body weight 88.[address] Joon Lopez Work Phone: [facility] Work Phone: 07-01-2022 11:03-0400 Body weight 88 kg Joon Lopez MD Work Phone: [facility] [place] 07-01-2022 11:03-0400 Diastolic blood pressure 82 mm[Hg] Joon Lopez MD Work Phone: [facility] [place] 07-01-2022 11:03-0400 Heart rate 76 /min Joon Lopez MD Work Phone: [facility] [place] 07-01-2022 11:03-0400 SaO2% (BldA) [Mass fraction] 96 % Joon Lopez MD Work Phone: [facility] [place] 07-01-2022 11:03-0400 Systolic blood pressure 142 mm[Hg] Joon Lopez MD Work Phone: [facility] [place] 06-19-2022 12:17-0400 Body mass index (BMI) [Ratio] 29.5 kg/m2 Dr. Joon Lopez Work Phone: [facility] Work Phone: 06-19-2022 09:35-0400 SaO2% (BldA) [Mass fraction] 93 % Dr. Joon Lopez Work Phone: [facility] Work Phone: 06-19-2022 09:28-0400 Body temperature 99 [degF] Dr. Joon Lopez Work Phone: [facility] Work Phone: 06-19-2022 09:28-0400 Diastolic blood pressure 56 mm[Hg] Dr. Joon Lopez Work Phone: [facility] Work Phone: 06-19-2022 09:28-0400 Heart rate 62 /min Dr. Joon Lopez Work Phone: [facility] Work Phone: 06-19-2022 09:28-0400 Inhaled oxygen flow rate 2 L/min Dr. Joon Lopez Work Phone: [facility] Work Phone: 06-19-2022 09:28-0400 Respiratory rate 17 /min Dr. Joon Lopez Work Phone: [facility] Work Phone: 06-19-2022 09:28-0400 Systolic blood pressure 101 mm[Hg] Dr. Joon Lopez Work Phone: [facility] Work Phone: 06-19-2022 06:00-0400 Body weight 89.[address] Joon Lopez Work Phone: [facility] Work Phone: 06-18-2022 10:47-0400 Body height 172.[address] Joon Lopez Work Phone: [facility] Work Phone: 06-18-2022 03:56-0400 Body temperature 98.9 [degF] Dr. Joon Lopez Work Phone: [facility] Work Phone: 06-18-2022 03:56-0400 Diastolic blood pressure 83 mm[Hg] Dr. Joon Lopez Work Phone: [facility] Work Phone: 06-18-2022 03:56-0400 Heart rate 61 /min Dr. Joon Lopez Work Phone: [facility] Work Phone: 06-18-2022 03:56-0400 Respiratory rate 17 /min Dr. Joon Lopez Work Phone: [facility] Work Phone: 06-18-2022 03:56-0400 SaO2% (BldA) [Mass fraction] 96 % Dr. Joon Lopez Work Phone: [facility] Work Phone: 06-18-2022 03:56-0400 Systolic blood pressure 98 mm[Hg] Dr. Joon Lopez Work Phone: [facility] Work Phone: 06-17-2022 23:42-0400 Body height 172.[address] Joon Lopez Work Phone: [facility] Work Phone: 06-17-2022 23:42-0400 Body mass index (BMI) [Ratio] 30.2 kg/m2 Dr. Joon Lopez Work Phone: [facility] Work Phone: 06-17-2022 23:42-0400 Body weight [address] Joon Lopez Work Phone: [facility] Work Phone: 06-17-2022 17:20-0400 Respiratory rate 16 /min Dr. Joon Lopez Work Phone: [facility] Work Phone: 06-17-2022 17:20-0400 SaO2% (BldA) [Mass fraction] 94 % Dr. Joon Lopez Work Phone: [facility] Work Phone: 06-17-2022 16:36-0400 Body temperature 97 [degF] Dr. Joon Lopez Work Phone: [facility] Work Phone: 06-17-2022 16:36-0400 Diastolic blood pressure 70 mm[Hg] Dr. Joon Lopez Work Phone: [facility] Work Phone: 06-17-2022 16:36-0400 Heart rate 120 /min Dr. Joon Lopez Work Phone: [facility] Work Phone: 06-17-2022 16:36-0400 Systolic blood pressure 133 mm[Hg] Dr. Joon Lopez Work Phone: [facility] Work Phone: 06-17-2022 14:28-0400 Body height 177.[address] Joon Lopez Work Phone: [facility] Work Phone: 06-17-2022 14:28-0400 Body mass index (BMI) [Ratio] 28.6 kg/m2 Dr. Joon Lopez Work Phone: [facility] Work Phone: 06-17-2022 14:28-0400 Body weight 90.[address] Joon Lopez Work Phone: [facility] Work Phone: 06-16-2022 23:02-0400 Diastolic blood pressure 77 mm[Hg] Dr. Joon Lopez Work Phone: [facility] Work Phone: 06-16-2022 23:02-0400 Heart rate 65 /min Dr. Joon Lopez Work Phone: [facility] Work Phone: 06-16-2022 23:02-0400 Respiratory rate 16 /min Dr. Joon Lopez Work Phone: [facility] Work Phone: 06-16-2022 23:02-0400 SaO2% (BldA) [Mass fraction] 96 % Dr. Joon Lopez Work Phone: [facility] Work Phone: 06-16-2022 23:02-0400 Systolic blood pressure 156 mm[Hg] Dr. Joon Lopez Work Phone: [facility] Work Phone: 06-16-2022 21:39-0400 Body temperature 98.9 [degF] Dr. Joon Lopez Work Phone: [facility] Work Phone: 06-16-2022 21:27-0400 Body height 172.[address] Joon Lopez Work Phone: [facility] Work Phone: 06-16-2022 21:27-0400 Body mass index (BMI) [Ratio] 28.8 kg/m2 Dr. Joon Lopez Work Phone: [facility] Work Phone: 06-16-2022 21:27-0400 Body weight 86.[address] Joon Lopez Work Phone: [facility] Work Phone: 05-06-2022 08:43-0400 Body weight 88.45 kg Xi Worley 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.MANAGER FRONT Work Phone: [facility] [place] 05-06-2022 08:43-0400 Diastolic blood pressure 80 mm[Hg] Xi Worley 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.MANAGER FRONT Work Phone: [facility] [place] 05-06-2022 08:43-0400 Heart rate 79 /min Xi Worley 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.MANAGER FRONT Work Phone: [facility] [place] 05-06-2022 08:43-0400 Respiratory rate 18 /min Xi Worley 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.MANAGER FRONT Work Phone: [facility] [place] 05-06-2022 08:43-0400 SaO2% (BldA) [Mass fraction] 96 % Xi Worley 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.MANAGER FRONT Work Phone: [facility] [place] 05-06-2022 08:43-0400 Systolic blood pressure 134 mm[Hg] Xi Worley 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.MANAGER FRONT Work Phone: [facility] [place] 04-25-2022 07:03-0400 Body mass index (BMI) [Ratio] 29.2 kg/m2 Dr. Joon Lopez Work Phone: [facility] 04-04-2022 09:37-0400 Body height 167.[address] Joon Lopez Work Phone: [facility] Work Phone: 04-04-2022 09:37-0400 Body mass index (BMI) [Ratio] 31.6 kg/m2 Dr. Joon Lopez Work Phone: [facility] Work Phone: 04-04-2022 09:37-0400 Body temperature 98.4 [degF] Dr. Joon Lopez Work Phone: [facility] Work Phone: 04-04-2022 09:37-0400 Body weight 88.[address] Joon Lopez Work Phone: [facility] Work Phone: 04-04-2022 09:37-0400 Diastolic blood pressure 90 mm[Hg] Dr. Joon Lopez Work Phone: [facility] Work Phone: 04-04-2022 09:37-0400 Heart rate 87 /min Dr. Joon Lopez Work Phone: [facility] Work Phone: 04-04-2022 09:37-0400 Respiratory rate 17 /min Dr. Joon Lopez Work Phone: [facility] Work Phone: 04-04-2022 09:37-0400 SaO2% (BldA) [Mass fraction] 98 % Dr. Joon oLpez Work Phone: [facility] Work Phone: 04-04-2022 09:37-0400 Systolic blood pressure 152 mm[Hg] Dr. Joon Lopez Work Phone: [facility] Work Phone: 03-25-2022 20:44-0400 Body mass index (BMI) [Ratio] 29.2 kg/m2 Dr. Joon Lopez Work Phone: [facility] Work Phone: 03-25-2022 16:03-0400 Diastolic blood pressure 70 mm[Hg] Joon Lopez MD Work Phone: [facility] [place] 03-25-2022 16:03-0400 Systolic blood pressure 114 mm[Hg] Joon Lopez MD Work Phone: [facility] [place] 03-25-2022 15:20-0400 Body weight 88 kg Joon Lopez MD Work Phone: [facility] [place] 03-25-2022 15:20-0400 Heart rate 83 /min Joon Lopez MD Work Phone: [facility] [place] 03-25-2022 15:20-0400 SaO2% (BldA) [Mass fraction] 97 % Joon Lopez MD Work Phone: [facility] [place] 03-05-2022 09:00-0400 Body mass index (BMI) [Ratio] 31.6 kg/m2 Dr. Joon Lopez Work Phone: [facility] Work Phone: 03-05-2022 09:00-0400 Body temperature 98.2 [degF] Dr. Joon Lopez Work Phone: [facility] Work Phone: 03-05-2022 09:00-0400 Body weight 88.[address] Joon Lopez Work Phone: [facility] Work Phone: 03-05-2022 09:00-0400 Diastolic blood pressure 94 mm[Hg] Dr. Joon Lopez Work Phone: [facility] Work Phone: 03-05-2022 09:00-0400 Heart rate 87 /min Dr. Joon Lopez Work Phone: [facility] Work Phone: 03-05-2022 09:00-0400 Respiratory rate 18 /min Dr. Joon Lopez Work Phone: [facility] Work Phone: 03-05-2022 09:00-0400 SaO2% (BldA) [Mass fraction] 98 % Dr. Joon Lopez Work Phone: [facility] Work Phone: 03-05-2022 09:00-0400 Systolic blood pressure 177 mm[Hg] Dr. Joon Lopez Work Phone: [facility] Work Phone: 03-05-2022 09:00-0400 Body height 167.[address] Joon Lopez Work Phone: [facility] Work Phone: 01-24-2022 02:26-0400 Body mass index (BMI) [Ratio] 29.2 kg/m2 Dr. Joon Lopez Work Phone: [facility] Work Phone: 01-17-2022 11:10-0400 Diastolic blood pressure 64 mm[Hg] Joon Lopez MD Work Phone: [facility] [place] 01-17-2022 11:10-0400 Systolic blood pressure 112 mm[Hg] Joon Lopez MD Work Phone: [facility] [place] 01-17-2022 10:26-0400 Body weight 84.82 kg Joon Lopez MD Work Phone: [facility] [place] 01-17-2022 10:26-0400 Heart rate 84 /min Joon Lopez MD Work Phone: [facility] 01-07-2022 08:13-0400 Body mass index (BMI) [Ratio] 29.2 kg/m2 Dr. Joon Lopez Work Phone: [facility] Work Phone: 11-26-2021 00:12-0500 Body mass index (BMI) [Ratio] 29.2 kg/m2 Dr. Joon Lopez Work Phone: [facility] Work Phone: 10-27-2021 03:16-0500 Body mass index (BMI) [Ratio] 29.2 kg/m2 Dr. Joon Lopez Work Phone: [facility] Work Phone: 10-14-2021 09:30-0500 Body height 167.[address] Joon Lopez Work Phone: [facility] Work Phone: 10-14-2021 09:30-0500 Body weight 83.[address] Joon Lopez Work Phone: [facility] Work Phone: 10-14-2021 09:30-0500 Diastolic blood pressure 72 mm[Hg] Dr. Joon Lopez Work Phone: [facility] Work Phone: 10-14-2021 09:30-0500 Heart rate 68 /min Dr. Joon Lopez Work Phone: [facility] Work Phone: 10-14-2021 09:30-0500 Respiratory rate 18 /min Dr. Joon Lopez Work Phone: [facility] Work Phone: 10-14-2021 09:30-0500 Systolic blood pressure 128 mm[Hg] Dr. Joon Lopez Work Phone: [facility] Work Phone: 10-08-2021 08:14-0500 Body mass index (BMI) [Ratio] 29.3 kg/m2 Dr. Joon Lopez Work Phone: [facility] Work Phone: 10-08-2021 08:14-0500 Body temperature 96.6 [degF] Dr. Joon Lopez Work Phone: [facility] Work Phone: 10-08-2021 08:14-0500 Body weight 82.[address] Joon Lopez Work Phone: [facility] Work Phone: 10-08-2021 08:14-0500 Diastolic blood pressure 85 mm[Hg] Dr. Joon Lopez Work Phone: [facility] Work Phone: 10-08-2021 08:14-0500 Heart rate 80 /min Dr. Joon Lopez Work Phone: [facility] Work Phone: 10-08-2021 08:14-0500 Respiratory rate 16 /min Dr. Joon Lopez Work Phone: [facility] Work Phone: 10-08-2021 08:14-0500 SaO2% (BldA) [Mass fraction] 96 % Dr. Joon Lopez Work Phone: [facility] Work Phone: 10-08-2021 08:14-0500 Systolic blood pressure 137 mm[Hg] Dr. Joon Lopez Work Phone: [facility] Work Phone: 08-25-2021 03:48-0400 Body mass index (BMI) [Ratio] 29.2 kg/m2 Dr. Joon Lopez Work Phone: [facility] Work Phone: 12-07-2020 09:43-0500 Body mass index (BMI) [Ratio] 29.2 kg/m2 Dr. Joon Lopez Work Phone: [facility] Work Phone: 08-17-2017 09:37-0400 BP Diastolic 68 mm[Hg] Kim Semajmark [facility] Work Phone: 08-17-2017 09:37-0400 BP Systolic 130 mm[Hg] Kim Semajmark [facility] Work Phone: 08-17-2017 09:37-0400 Pulse [...] Date Encounter Type Care Provider Facility Start: 05-26-2025 ambulatory Adi Quevedo NP Facility :[facility] Start: 05-17-2025 Encounter for genera l adult medical examination without abnormal findings Lisandra JENKINS [facility] Start: 05-11-2025 End: 05-11-2025 Patient encounter procedure Lisandra JENKINS -Laboratory Specimen Work Phone: Start: 05-11-2025 End: 05-25-2025 Discharged Recurring Lisandra JENKINS -Laboratory Work Phone: Start: 05-11-2025 Registered Recurring Lisandra Cao PA -Laboratory Work Phone: Start: 05-11-2025 End: 05-25-[address] Joon Lopez MD Work Phone: -Laboratory Specimen Start: 05-11-2025 End: 05-11-2025 ambulatory XOCHITL CASTREJON Facility:[facility] Start: 05-11-2025 End: 05-11-2025 Office outpatient visit 25 minutes Xochitl Castrejon MD Work Phone: Geriatrics Comment on above: 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 behavioral disturbance, psychotic disturbance, mood disturbance, or anxiety (HCC) (Primary Dx); Depression, unspecified depression type Start: 05-11-2025 End: 05-11-2025 ambulatory Joon Lopez Facility:[facility] Start: 03-23-2025 End: 03-23-2025 Discharged Recurring Lisandra Cao PA -Laboratory Work Phone: Start: 03-23-2025 End: 03-23-[address] Joon Lopez MD Work Phone: [facility] Work Phone: Start: 03-23-2025 ambulatory [facility] Facility: [facility] Start: 03-13-2025 End: 03-13-2025 Subsequent hospital visit by physician Xr [facility] Work Phone: Radiology Comment on above: Chronic pain of left knee [M25.562, G89.29] Start: 03-13-2025 End: 03-13-2025 ambulatory WHITNEY HAMMOND Facility:[facility] Start: 03-13-2025 End: 03-13-2025 Patient encounter procedure Whitney Hammond 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.MANAGER FRONT Work Phone: Internal Medicine [facility] Comment on above: Chronic pain of righ [...] Joon Lopez MD Work Phone: [facility] Comment on above: Medical alert neckla ce Start: 02-09-2025 End: 02-09-2025 ambulatory XOCHITL CASTREJON Facility:[facility] Start: 02-09-2025 End: 02-09-2025 Office outpatient visit 25 minutes Xochitl Castrejon MD Work Phone: Geriatrics Comment on above: Dementia without beh avioral disturbance (HCC); Type 2 diabetes mellitus without complication, without long-term current use of insulin (HCC) Start: 02-09-2025 End: 02-09-2025 Follow-up encounter Margaret Wilde APRN.MANAGER FRONT Work Phone: [facility] Start: 02-07-2025 End: 02-07-2025 ambulatory [facility] Facility:[facility] Start: 02-07-2025 End: 02-07-2025 Patient encounter procedure Clarisse Joyce APRN.MANAGER FRONT Work Phone: [facility] Comment on above: Urinary tract infect ion with hematuria, site unspecified (Primary Dx); Confusion Start: 01-12-2025 End: 01-12-2025 Discharged Recurring Lisandra Cao PA -Laboratory Work Phone: Start: 01-12-2025 End: 01-12-[address] Joon Lopez MD Work Phone: [facility] Work Phone: Start: 01-07-2025 End: 01-08-2025 Follow-up encounter Clarisse Joyce APRN.MANAGER FRONT Work Phone: [facility] Start: 01-05-2025 End: 01-05-2025 ambulatory JOON Jacky [facility] Facility:[facility] Start: 01-05-2025 End: 01-05-2025 Patient encounter procedure Antonino JENKINS Work Phone: [facility] Comment on above: Urinary tract infect ion with hematuria, site unspecified (Primary Dx); Dysuria Start: 01-04-2025 End: 01-04-2025 Emergency department patient visit Dr. Joon Lopez MD Work Phone: -Emergency Department Work Phone: Start: 01-04-2025 End: 01-04-2025 Refill Joon Lopez MD Work Phone: [address] [place] [address] Comment on above: Refill Request Start: 12-27-2024 End: 12-28-2024 Refdenis Lopez MD Work Phone: Internal Medicine [facility] Comment on above: Refill Request Start: 12-09-2024 End: 12-09-2024 Patient encounter procedure Leeanna Mascorro [facility] Work Phone: Start: 12-09-2024 End: 12-09-2024 ambulatory Joon Lopez Facility:[facility] Start: 12-07-2024 End: 12-07-2024 ambulatory JOON LOPEZ Facility:[facility] Start: 12-07-2024 End: 12-07-2024 Office outpatient visit 25 minutes Joon Lopez MD Work Phone: Internal [facility] [place] Comment on above: Controlled type 2 di [...] Whitney Hammond APRN.CNP Work Phone: [facility] [place] Comment on above: Refill Request Start: 11-10-2024 End: 11-10-2024 ambulatory XOCHITL CASTREJON Facility:[facility] Start: 11-10-2024 End: 11-10-2024 Office consultation new/estab patient 60 min Xochitl Castrejon MD Work Phone: Geriatrics Comment on above: Mild dementia withou t behavioral disturbance, psychotic disturbance, mood disturbance, or anxiety, unspecified dementia type (HCC) (Primary Dx); Depression, unspecified depression type; RAMESH (obstructive sleep apnea) Start: 11-01-2024 End: 11-01-2024 Discharged Recurring Lisandra Cao PA -Laboratory Work Phone: Start: 11-01-2024 End: 11-01-2024 ambulatory Adi Quevedo NP Facility:[facility] Start: 10-31-2024 End: 11-02-2024 Refill Joon Lopez MD Work Phone: Internal [facility] [place] Comment on above: Refill Request Start: 09-30-2024 End: 09-30-2024 Telephone encounter Xochitl Castrejon MD Work Phone: Internal [facility] [place] Start: 09-28-2024 ambulatory XOCHITL CASTREJON Facility:[facility] Start: 09-28-2024 End: 09-28-2024 Subsequent hospital visit by physician Mri 2 [facility] (I-Stat/Lg Bore/1.5t) [facility] Comment on above: Cognitive impairment , mild, so stated [G31.84] Start: 09-19-2024 End: 09-24-2024 ambulatory Adi Quevedo [facility] Facility:[facility] Start: 09-19-2024 End: 09-24-2024 Discharged Recurring Lisandra Cao PA -Laboratory Work Phone: Start: 09-13-2024 End: 09-19-2024 Telephone encounter Xochitl Castrejon MD Work Phone: Geriatrics Comment on above: Appointment Start: 09-09-2024 End: 09-09-2024 ambulatory WHITNEY HAMMOND Facility:[facility] Start: 09-09-2024 End: 09-09-2024 Patient encounter procedure Whitney Hammond APRN.MANAGER FRONT Work Phone: Internal Medicine [place] Comment on above: Controlled type 2 di abetes mellitus without complication, without long-term current use of insulin (HCC) (Primary Dx); Mixed hyperlipidemia; Essential hypertension; Atrial flutter, unspecified type (HCC); Anticoagulated on Coumadin; Degeneration of intervertebral disc of lumbar region, unspecified whether pain present; Memory deficit; Encounter for therapeutic drug monitoring Start: 09-08-2024 End: 09-08-2024 ambulatory JOON LOPEZ Facility:[facility] Start: 09-08-2024 End: 09-08-2024 Patient encounter procedure Margaret Wilde APRN.MANAGER FRONT Work Phone: [facility] Comment on above: Dysuria (Primary Dx) Start: 08-22-2024 End: 08-22-2024 ambulatory Adi Quevedo [facility] Facility:[facility] Start: 08-20-2024 End: 08-21-2024 Emergency department patient visit Miguel Perera Facility:[facility] Start: 08-17-2024 End: 08-17-2024 ambulatory JOON Jacky CALVOAS Facility:[facility] Start: 08-17-2024 End: 08-17-2024 Office outpatient visit 15 minutes Sandra Payton PA-C Work Phone: [facility] Comment on above: Urinary frequency (P rimary Dx); Acute UTI Start: 08-03-2024 End: 08-17-2024 Telephone encounter Xochitl Castrejon MD Work Phone: Internal [facility] [place] Comment on above: Patient Update Appointment Orders Start: 08-03-2024 End: 08-03-2024 Patient encounter procedure Xochitl Castrejon MD Work Phone: Geriatrics Comment on above: Cognitive impairment , mild, so stated (Primary Dx); Urge incontinence; Apathy; Moderate episode of recurrent major depressive disorder (HCC); Controlled type 2 diabetes mellitus without complication, without long-term current use of insulin (HCC) Start: 08-03-2024 End: 08-03-2024 ambulatory XOCHITL CASTREJON Facility:[facility] Start: 07-19-2024 End: 07-19-2024 ambulatory Joon Jacky Lopez Facility:[facility] Start: 07-14-2024 End: 07-14-2024 ambulatory Adi Maximino Sae PATHAK Facility:[facility] Start: 07-06-2024 End: 07-11-2024 Telephone encounter Joon Lopez MD Work Phone: [facility] [place] Comment on above: Patient Update Start: 07-06-2024 ambulatory Joon D [place] Facilit y:[facility] Start: 07-05-2024 End: 07-06-2024 Telephone encounter Joon Lopez MD Work Phone: [facility] [place] Comment on above: Rx refill; not on cu rrent med list Start: 07-04-2024 End: 07-04-2024 ambulatory Joon D [place] Facility:[facility] Start: 07-01-2024 End: 07-01-2024 ambulatory Joon D [place] Facility:[facility] Start: 06-28-2024 ambulatory Joon D [place] Facilit y:[facility] Start: 06-28-2024 End: 07-04-2024 Telephone encounter Joon Lopez MD Work Phone: [facility] [place] Comment on above: patient assistance Start: 06-22-2024 End: 06-22-2024 ambulatory JOON D TALAMPAS Facility:[facility] Start: 06-22-2024 End: 06-22-2024 Office outpatient visit 25 minutes Joon Lopez MD Work Phone: [facility] [place] Comment on above: Confusion (Primary D x); Severe low back pain; Memory deficit; Controlled type 2 diabetes mellitus without complication, without long-term current use of insulin (HCC); Pacemaker Start: 06-21-2024 ambulatory Joon D [place] Facilit y:[facility] Start: 06-21-2024 End: 06-21-2024 Telephone encounter Joon Lopez MD Work Phone: [facility] Medicine [place] Comment on above: [facility] nursing Start: 06-20-2024 End: 06-20-2024 Telephone encounter Joon Lopez MD Work Phone: [address] [place] [address] Comment on above: Patient Update Start: 06-17-2024 ambulatory Kassi Fisher Facility :[facility] Start: 06-17-2024 End: 06-18-2024 Evaluation and management of inpatient Kassi Fisher Facility:[facility] Start: 06-16-2024 ambulatory Alea Martinez Facility:[facility] Start: 06-14-2024 ambulatory Joon D [place] Facilit y:[facility] Start: 06-12-2024 End: 06-12-2024 Emergency department patient visit Joon D [place] Facility:[facility] Start: 06-10-2024 Telephone encounter Joon collins MD Work Phone: Internal Medicine [place] Comment on above: Patient Question Start: 06-10-2024 End: 06-10-2024 ambulatory Joon D [place] Facility:[facility] Start: 06-10-2024 End: 06-10-2024 ambulatory Joon D [place] Facility:[facility] Start: 06-08-2024 End: 06-08-2024 ambulatory Joon D [place] Facility:[facility] Start: 06-08-2024 Telephone encounter Xochitl ospina MD Work Phone: [facility] [place] Comment on above: No Show Patient Update Start: 06-08-2024 ambulatory Joon D [place] Facilit y:[facility] Start: 06-03-2024 Telephone encounter Connie snow APRN.MANAGER FRONT Work Phone: [facility] Comment on above: Results Start: 06-01-2024 End: 06-01-2024 Emergency department patient visit Miguel Perera Facility:[facility] Start: 06-01-2024 End: 06-01-2024 ambulatory JOON D TALAMPAS Facility:[facility] Start: 06-01-2024 End: 06-01-2024 Patient encounter procedure Clarisse Joyce 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.MANAGER FRONT Work Phone: [facility] Comment on above: Hallucinations, unsp ecified (Primary Dx); Generalized weakness Start: 06-01-2024 Telephone encounter Joon collins MD Work Phone: [facility] Medicine [place] Comment on above: Orders Start: 06-01-2024 ambulatory Joon D [place] Facilit y:[facility] Start: 05-27-2024 Refill Joon ferrera MD Work Phone: [facility] [place] Comment on above: Refill Request (Need s today) Start: 05-12-2024 Telephone encounter Joon collins MD Work Phone: [facility] [place] Comment on above: Insurance Authorizat ion Start: 05-11-2024 End: 05-11-2024 Office outpatient visit 25 minutes Joon Lopez MD Work Phone: [facility] [place] Comment on above: Rib pain on right si de (Primary Dx); Laceration of scalp, sequela; Acute cystitis without hematuria; Severe low back pain; DDD (degenerative disc disease), lumbar; Acute pain of left knee; Sprain of left knee, unspecified ligament, initial encounter; Cognitive impairment; Memory deficit Start: 05-11-2024 Telephone encounter Joon collins MD Work Phone: [facility] [place] Comment on above: OT Plan of Care PT Plan of Care Start: 05-10-2024 Telephone encounter Joon collins MD Work Phone: [facility] [place] Comment on above: Home health plan of care; medication questions Start: 05-06-2024 Telephone encounter Joon collins MD Work Phone: [facility] [place] Comment on above: Orders Start: 04-06-2024 Telephone encounter Whitney Cleav er 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.MANAGER FRONT Work Phone: [facility] [place] Comment on above: Results Start: 03-24-2024 Telephone encounter Joon collins MD Work Phone: [facility] [place] Comment on above: Letter for Coummunit y Action Start: 03-22-2024 Telephone encounter Whitney Cleav er 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.MANAGER FRONT Work Phone: Internal [facility] [place] Comment on above: Results; Care Coordi nator - Other Start: 03-22-2024 End: 03-22-2024 Patient encounter procedure Whitney Morser 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.MANAGER FRONT Work Phone: Internal Medicine [place] Comment on above: Controlled type 2 di abetes mellitus without complication, without long-term current use of insulin (HCC) (Primary Dx); Loose stools; Cognitive impairment; Anticoagulated on Coumadin; Atrial flutter, unspecified type (HCC); Vitamin D deficiency; Encounter for therapeutic drug monitoring Start: 03-21-2024 Refill Whitney Stephany 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.MANAGER FRONT Work Phone: [facility] [place] Comment on above: Refill Request Start: 03-17-2024 Telephone encounter Joon collins MD Work Phone: [facility] [place] Comment on above: Orders (Bone Density ) Start: 02-03-2024 End: 02-03-2024 Office outpatient visit 15 minutes Joon Lopez MD Work Phone: [facility] [place] Comment on above: Near syncope (Primar y Dx); Urinary incontinence without sensory awareness; Persistent disorder of initiating or maintaining sleep; Hydronephrosis, right; Dehydration Start: 01-30-2024 Non-patient / Non-visit Dr. Leeann Lopez Work Phone: [facility] Work Phone: Start: 01-29-2024 Non-patient / Non-visit Dr. Leeann Lopez Work Phone: [facility] Work Phone: Start: 01-29-2024 End: 01-30-2024 Evaluation and management of inpatient Dr. Joon Lopez Work Phone: [facility]-Progressive Care Unit Work Phone: Start: 01-29-2024 End: 01-30-[address] Joon Lopez Work Phone: [facility] Work Phone: Start: 01-28-2024 End: 01-29-2024 Emergency department patient visit [facility] Facility:[facility] Start: 01-28-2024 End: 01-28-2024 Emergency department patient visit [facility] Start: 01-28-2024 ambulatory Joon ferrera MD Work Phone: Internal Medicine [place] Comment on above: Neurologic Problem Start: 01-22-2024 End: 01-22-2024 Admission to same day surgery center Dr. Joon Lopez Work Phone: [facility]Surgical Day Care Start: 01-22-2024 End: 01-22-[address] Joon Lopez Work Phone: [facility] Work Phone: Start: 01-06-2024 End: 01-06-[address] Joon Lopez Work Phone: [facility] Work Phone: Start: 01-05-2024 End: 01-05-2024 Office outpatient visit 40 minutes Joon Lopez MD Work Phone: [facility] [place] Comment on above: Urinary incontinence without sensory awareness (Primary Dx); Memory deficits; Dysuria; Nocturia more than twice per night; Urinary urgency; Atrial flutter, unspecified type (HCC); Encounter for immunization Start: 01-04-2024 Telephone encounter Joon collins MD Work Phone: Family [facility] [place] Comment on above: memory issue Start: 01-04-2024 End: 01-23-[address] Joon Lopez Work Phone: [facility] Work Phone: Start: 01-04-2024 End: 01-23-[address] Joon Lopez Work Phone: [facility]-Laboratory Work Phone: Start: 01-04-[address] Joon Lopez Work Phone: [facility]-Laboratory Work Phone: Start: 01-01-2024 End: 01-01-[address] Joon Lopez Work Phone: [facility] Work Phone: Start: 01-01-2024 End: 01-01-[address] Joon Lopez Work Phone: [facility] Work Phone: Start: 12-31-2023 Non-patient / Non-visit Dr. Leeann Lopez Work Phone: [facility] Work Phone: Start: 12-30-2023 End: 12-30-2023 Non-patient / Non-visit Dr. Joon Lopez Work Phone: [facility] Work Phone: Start: 12-29-2023 End: 12-31-2023 Evaluation and management of inpatient Dr. Joon Lopez Work Phone: [facility]-Medical Surgical 3 Work Phone: Start: 12-14-2023 Telephone encounter Joon collins MD Work Phone: [facility] [place] Comment on above: referral request Start: 12-04-2023 Non-patient / Non-visit Dr. Leeann Lopez Work Phone: [facility] Start: 12-02-2023 End: 12-02-[address] Joon Lopez Work Phone: [facility] Work Phone: Start: 12-02-2023 End: 12-02-[address] [facility] Work [facility]: Start: 11-28-2023 End: 11-28-2023 Emergency department patient visit Dr. Joon Lopez Work Phone: [facility]-Emergency Department Work Phone: Start: 11-27-2023 Non-patient / Non-visit Dr. Leeann Lopez Work Phone: [facility] Start: 11-27-2023 End: 11-27-[address] Joon Lopez Work Phone: [facility] Work Phone: Start: 11-27-2023 End: 11-27-[address] Joon Lopez [facility] Work [facility]: Start: 11-26-2023 End: 11-26-[address] Joon Lopez Work Phone: [facility] Work Phone: Start: 11-12-2023 End: 11-12-[address] Joon Lopez Work Phone: [facility] Work Phone: Start: 11-09-2023 End: 11-09-2023 Emergency department patient visit Dr. Joon Lopez Work Phone[facility] Work Phone: Start: 10-01-2023 End: 10-02-2023 Emergency department patient visit Dr. Joon Lopez Work Phone[facility] Work Phone: Start: 09-30-2023 End: 09-30-[address] 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 Joon Lopez Work Phone: [facility] Work Phone: Start: 09-03-2023 End: 09-03-[address] Joon Lopez [facility] Work Phone: Start: 09-01-2023 End: 09-01-2023 Emergency department patient visit Dr. Joon Lopez Work Phone: [facility]-Emergency Department Work Phone: Start: 08-13-2023 End: 08-25-[address] Joon Lopez Work Phone: [facility] Work Phone: Start: 07-23-2023 End: 07-25-[address] Joon Lopez Work Phone: [facility] Work Phone: Start: 07-23-2023 End: 07-25-[address] Joon Lopez Work Phone: [facility] Work Phone: Start: 07-16-2023 Telephone encounter Joon collins MD Work Phone: [facility] [place] Comment on above: Glucometer Order Start: 07-13-2023 Refill Joon ferrera MD Work Phone: [facility] [place] Comment on above: Refill Request Start: 07-10-2023 End: 07-10-[address] Joon Lopez Work Phone: [facility] Work Phone: Start: 07-10-2023 End: 07-10-[address] Joon Lopez Work Phone: [facility]-Laboratory Work Phone: Start: 07-10-[address] Joon Lopez [facility]: Start: 07-10-2023 End: 07-10-[address] Joon Lopez Work Phone: [facility] Work Phone: Start: 06-25-2023 End: 06-25-[address] Joon Lopez Work Phone: [facility] Work Phone: Start: 06-25-2023 End: 06-25-[address] Joon Lopez Work Phone: [facility] Work Phone: Start: 06-25-[address] Joon Lopez Work Phone: [facility] Work Phone: Start: 06-16-2023 Telephone encounter Joon collins MD Work Phone: [facility] [place] Comment on above: Patient Concerns Start: 06-12-2023 End: 06-12-[address] Joon Lopez Work Phone: [facility] Work Phone: Start: 05-28-2023 End: 05-28-[address] Joon Lopez Work Phone: [facility] Work Phone: Start: 05-28-2023 End: 05-28-[address] Joon Lopez [facility] Work [facility]: Start: 05-21-2023 End: 05-21-2023 Emergency department patient visit Dr. Joon Lopez Work Phone: [facility]-Emergency Department Work Phone: Start: 05-12-2023 End: 05-12-2023 Patient encounter procedure Whitney Hammond APRN.MANAGER FRONT Work Phone: [facility] [place] Comment on above: Cellulitis of foot ( Primary Dx); Partial thickness burn of left foot, subsequent encounter; Controlled type 2 diabetes mellitus without complication, without long-term current use of insulin ([facility]) Start: 05-09-2023 End: 05-09-2023 Emergency department patient visit Dr. Joon Lopez Work Phone: [facility]-Emergency Department Work Phone: Start: 05-04-2023 Refill Joon ferrera MD Work Phone: [address] [place] [address] Comment on above: Refill Request; Refi ll Request Start: 04-24-2023 End: 04-24-[address] Joon Lopez Work Phone: [facility] Work Phone: Start: 04-23-2023 End: 04-24-2023 Non-patient / Non-visit Dr. Joon Lopez Work Phone: [facility] Start: 04-16-2023 End: 04-16-[address] [facility] Work [facility]: Start: 04-16-2023 End: 04-16-2023 Office outpatient visit 15 minutes Trini Tang APRN.CNS Work Phone: [facility] [place] Comment on above: Back strain, subsequ ent encounter (Primary Dx); Mild intermittent asthma without complication; Muscle spasm; Back strain, sequela; Severe low back pain; DDD (degenerative disc disease), lumbar; Encounter for immunization; Screening for diabetic retinopathy; Controlled type 2 diabetes mellitus without complication, without long-term current use of insulin ([facility]) Start: 04-15-2023 ambulatory Joon ferrera MD Work Phone: Internal Medicine [place] Comment on above: Chest Heaviness Start: 04-03-2023 End: 04-03-2023 Office outpatient visit 25 minutes Joon Lopez MD Work Phone: 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 Joon Lopez Work Phone: [facility] Work Phone: Start: 03-31-2023 End: 03-31-[address] Joon Lopez Work Phone: [facility]-Laboratory Work Phone: Start: 03-31-2023 End: 03-31-2023 Patient encounter procedure Whitney Hammond APRN.MANAGER FRONT Work Phone: [facility] Comment on above: Strain of neck muscl e, initial encounter (Primary Dx); Severe low back pain; DDD (degenerative disc disease), lumbar; Encounter for therapeutic drug monitoring Start: 03-26-2023 Refill Joon ferrera MD Work Phone: [facility] Comment on above: Refill Request Start: 03-18-2023 End: 03-18-2023 Emergency department patient visit Dr. Joon Lopez Work Phone: [facility]-Emergency Department Work Phone: Start: 03-17-2023 End: 03-18-2023 Emergency department patient visit Dr. Joon Lopez Work Phone: [facility]-Emergency Department Work Phone: Start: 12-26-2022 Telephone encounter Joon collins MD Work Phone: [facility] [place] Comment on above: Insurance Authorizat ion Start: 12-26-2022 End: 12-26-2022 Office outpatient visit 25 minutes Joon Lopez MD Work Phone: [facility] [place] Comment on above: Controlled type 2 di [...] Joon collins MD Work Phone: [facility] [place] Comment on above: Patient Update Start: 12-04-2022 End: 12-04-2022 Patient encounter procedure Daron Singh MD Work Phone: [facility] Comment on above: Urinary frequency (P rimary Dx) Start: 12-02-2022 End: 12-02-[address] Joon Lopez Work Phone: [facility] Work Phone: Start: 12-02-2022 End: 12-02-[address] Joon Lopez Work Phone: [facility]-Laboratory Start: 11-20-2022 Refill Joon ferrera MD Work Phone: [facility] [place] Comment on above: Refill Request Start: 10-14-2022 End: 10-14-[address] Joon Lopez Work Phone: [facility] Start: 09-25-2022 End: 09-25-[address] Joon Lopez Work Phone: [facility] Work Phone: Start: 09-25-2022 End: 09-25-[address] Joon Lopez Work Phone: [facility]-Laboratory Start: 09-15-2022 Refill Joon ferrera MD Work Phone: [facility] [place] Comment on above: Refill Request Start: 09-08-2022 End: 09-08-[address] Joon Lopez Work Phone: [facility] Start: 09-02-2022 End: 09-24-2022 ambulatory Dr. Joon Lopez Work Phone: [facility] Work Phone: Start: 09-02-2022 End: 09-24-[address] Joon Lopez Work Phone: [facility]-Laboratory Start: 08-28-2022 End: 08-28-[address] Joon Lopez Work Phone: [facility] Start: 08-04-2022 End: 08-04-[address] Joon Lopez Work Phone: [facility] Start: 07-31-2022 End: 07-31-2022 Emergency department patient visit Dr. Joon Lopez Work Phone: [facility]-Emergency Department Start: 07-28-2022 Refill Trini Tang APRN.CNS Work Phone: [facility] Start: 07-01-2022 End: 07-01-2022 Office outpatient visit 25 minutes Joon Lopez MD Work Phone: [facility] Comment on above: COVID-19 virus infec tion (Primary Dx); Diarrhea of infectious origin; Severe low back pain; DDD (degenerative disc disease), lumbar; Acute pain of left knee; Sprain of left knee, unspecified ligament, initial encounter; Severe low back pain Start: 06-19-2022 Non-patient / Non-visit Dr. Leeann Lopez Work Phone: [facility] Start: 06-18-2022 End: 06-19-2022 Evaluation and management of inpatient Dr. Joon Lopez [facility] Phone[facility] Start: 06-18-2022 End: 06-19-[address] Joon Lopez Work Phone: [facility] Work Phone: Start: 06-18-2022 Non-patient / Non-visit Dr. Leeann Lopez Work Phone: [facility] Start: 06-17-2022 End: 06-17-2022 Emergency department patient visit Dr. Joon Lopez [facility] Phone[facility] Start: 06-17-2022 Telephone encounter Joon collins MD Work Phone: [facility] Comment on above: Future Appointment Start: 06-16-2022 End: 06-16-2022 Emergency department patient visit Dr. Joon Lopez Work Phone: [facility]-Emergency Department Start: 06-16-2022 ambulatory Erin goodrich RN NURSE CUSTOMS OFFICER Comment on above: Confusion Start: 05-07-2022 Telephone encounter Xi buenrostro APRN.MANAGER FRONT Work Phone: [facility] Comment on above: Results Start: 05-06-2022 Telephone encounter Joon collins MD Work Phone: [facility] Comment on above: Future Appointment ( 05-06-22) Results (radiology) (CXR); Results Start: 05-06-2022 End: 05-06-2022 Subsequent hospital visit by physician [facility] Work Phone: Radiology Comment on above: ov Start: 05-06-2022 End: 05-06-2022 Office outpatient visit 15 minutes Xi Worley APRN.CNP Work Phone: [facility] Comment on above: Mild intermittent as thma with acute exacerbation (Primary Dx); Viral upper respiratory tract infection Start: 04-18-2022 Refill Joon ferrera MD Work Phone: [facility] Comment on above: Refill Request (SEE RX NOTES) Start: 04-04-2022 End: 04-04-[address] Joon Lopez Work Phone: [facility]-P[facility] Start: 04-02-2022 Non-patient / Non-visit Dr. Leeann Lopez Work Phone: [facility] Start: 04-02-2022 End: 04-02-[address] Joon Lopez Work Phone: [facility] Start: 04-02-[address] Joon Lopez Work Phone: [facility] Start: 04-02-2022 End: 04-02-[address] Joon Lopez Work Phone: [facility]-Cardiovascula r Services Start: 03-25-2022 End: 03-25-2022 Office outpatient visit 25 minutes Joon Lopez MD Work Phone: [facility] Comment on above: Controlled type 2 di [...] Discharged Recurring Dr. Joon Lopez Work Phone: [facility] Start: 03-05-2022 End: 03-05-[address] Joon Lopez Work Phone: [facility] Start: 01-17-2022 End: 01-17-2022 Office outpatient visit 25 minutes Joon Lopez MD Work Phone: [facility] Comment on above: Diabetes mellitus ty pe 2, controlled, without complications (HCC) (Primary Dx); Essential hypertension; Moderate persistent asthma without complication; Colon cancer screening; Eczema, unspecified type; Severe low back pain; DDD (degenerative disc disease), lumbar; Acute pain of left knee; Sprain of left knee, unspecified ligament, initial encounter; Back strain, sequela Start: 01-07-2022 End: 01-23-[address] Joon Lopez Work Phone: [facility] Start: 12-04-2021 End: 12-04-[address] Joon Lopez Work Phone: [facility] Start: 11-22-2021 End: 11-22-2021 Patient encounter procedure Joon Lopez MD Work Phone: [facility] Comment on above: Controlled type 2 di abetes mellitus without complication, without long-term current use of insulin (HCC) (Primary Dx); Moderate persistent asthma without complication; Anticoagulated on Coumadin; Pacemaker; Atrial flutter, unspecified type ([facility]); Severe low back pain; DDD (degenerative disc disease), lumbar; Acute pain of left knee; Sprain of left knee, unspecified ligament, initial encounter Start: 10-29-2021 End: 11-25-[address] Joon Lopez Work Phone: [facility] Start: 10-14-2021 End: 10-26-[address] Joon Lopez [facility] Start: 10-14-2021 End: 10-14-[address] Joon Lopez Work Phone: [facility] Start: 10-08-2021 End: 10-08-[address] Joon Lopez Work Phone: [facility] Procedures Date Procedure Procedure Detail Performing Clinician Start: 02-07-2025 Urnls dip stick/tablet rgnt auto w/o microscopy Clarisse Joyce 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.MANAGER FRONT Work Phone: Start: 01-05-2025 Urnls dip stick/tablet rgnt auto w/o microscopy Antonino JENKINS Work Phone: Start: 01-04-2025 Plain x-ray of humerus Dr. Joon Lopez MD Work Phone: Start: 01-04-2025 Plain X-ray of shoulder Dr. Joon ferrera MD Work Phone: Start: 09-08-2024 Urnls dip stick/tablet rgnt auto w/o microscopy Margaret Wilde 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.MANAGER FRONT Work Phone: Start: 08-17-2024 Urnls dip stick/tablet rgnt auto w/o microscopy Souleymane Shepard 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.MANAGER FRONT Work Phone: Start: 06-01-2024 Urnls dip stick/tablet rgnt auto w/o microscopy Clarisse Joyce 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.MANAGER FRONT Work Phone: Start: 01-29-2024 CT of head without contrast Dr. Joon Lopez Work Phone: Start: 01-29-2024 SARS-CoV-2, Influenza & RSV (PCR) Dr. Joon Lopez Work Phone: Start: 01-29-2024 CT of abdomen and pelvis without contrast Dr. Joon Lopez Work Phone: Start: 01-29-2024 Plain chest X-ray Dr. Joon Lopez Work Phone: Start: 01-22-[address] Joon oLpez Work Phone: Start: 01-22-[address] [...] CT of head without contrast Dr. Joon Loepz Work Phone: Start: 12-29-[address] [...] dip stick/tablet rgnt auto w/o microscopy Arina R Giorgio PA-C Work Phone: Start: 07-31-2022 Plain chest [...] Radiologic exam chest 2 views Xi Worley APRN.MANAGER FRONT Work Phone: Start: 05-06-2022 2019 CORONAVIRUS Xi Worley 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.MANAGER FRONT Work Phone: Start: 03-25-2022 Hemoglobin A1c/Hemoglobin.total in [...] as indicated) & Follow up Leeanna Mascorro MANAGER FRONT Work Phone: Start: 01-05-2017 End: 01-16-2017 DMB Leeanna Mascorro MANAGER FRONT Work Phone: Start: 01-05-2017 End: 01-16-2017 Follow Up Appt 2 months Leeanna Bruner serge MANAGER FRONT Work Phone: Start: 01-05-2017 End: 01-16-2017 Pulmonary Function Test - complete Leeanna Ferrera Mascorro MANAGER FRONT Work Phone: Start: 01-05-2017 End: 01-16-2017 Pulmonary stress test/simple Leeanna Mascorro MANAGER FRONT Work Phone: Bacteria identified in Blood by [...] Detail Author Start: 03-13-2026 Annual PCP Team Box Estimator jr Disease Visit Annual PCP Team Chronic Disease Visit [facility] Start: 03-13-2026 BP Controlled (<130/80) BP Controlle d (<130/80) [facility] Start: 02-09-2026 BP Controlled (<130/80) BP Controlle d (<130/80) [facility] Start: 12-07-2025 Annual PCP Team Box Estimator jr Disease Visit Annual PCP Team Chronic Disease Visit [facility] Start: 12-07-2025 BP Controlled (<130/80) BP Controlle d (<130/80) [facility] Start: 11-10-2025 BP Controlled (<130/80) BP Controlle d (<130/80) [facility] Start: 09-09-2025 Annual PCP Team Box Estimator jr Disease Visit Annual PCP Team Chronic Disease Visit [facility] Start: 09-09-2025 BP Controlled (<130/80) BP Controlle d (<130/80) [facility] Start: 09-09-2025 Covid-19 Vaccine () Covid-19 Vaccine () [facility] Comment on above: Postponed from 06/26 (Declined at this time) Start: 09-08-2025 BP Controlled (<130/80) BP Controlle d (<130/80) [facility] Start: 09-07-2025 End: 09-07-2025 Patient encounter procedure 09/07/2025 4:00 PM EST Office Visit Geriatrics [address] [place], [place] [id number] Xochitl Castrejon MD [address] [place] [address] 3 month follow up Geriatrics Comment on above: 3 month follow up Start: 08-17-2025 BP Controlled (<130/80) BP Controlle d (<130/80) [facility] Start: 08-03-2025 BP Controlled (<130/80) BP Controlle d (<130/80) [facility] Start: 06-26-2025 Influenza vaccination C [facility] Start: 06-22-2025 Annual PCP Team Isabelle jr Disease Visit Annual PCP Team Chronic Disease Visit [facility] Start: 06-22-2025 BP Controlled (<130/80) BP Controlle d (<130/80) [facility] Start: 06-19-2025 End: 06-19-2025 Patient encounter procedure [facility] Comment on above: 3 month follow up 1st att sent mychart Start: 06-06-2025 Hemoglobin A1c measurement HbA1C [facility] Start: 05-11-2025 End: 05-11-2025 Patient encounter procedure 05/11/2025 4:00 PM EDT Office Visit Geriatrics [address] [place] [address] Xochitl Castrejon MD [address] [place] [address] 3 month geriatric Geriatrics Comment on above: 3 month geriatric Start: 05-11-2025 Annual PCP Team Box Estimator jr Disease Visit Annual PCP Team Chronic Disease Visit [facility] Start: 05-06-2025 End: 08-05-2025 Lipid 1996 panel - Serum or Plasma LIPID PANEL BASIC Lab Routine Mixed hyperlipidemia Expected: 05/06/2025 (Approximate), Expires: 08/05/2025 [facility] Comment on above: Expected: 05/06/2025 (Approximate), Expires: 08/05/2025 Start: 04-24-2025 Influenza vaccination Influenza Vacc ine (#1) [facility] Comment on above: Postponed from 06/26 (Declined at this time) Start: 04-13-2025 End: 07-13-2025 CBC W Auto Differential panel - Blood COMPLETE BLOOD COUNT AND DIFFERENTIAL Lab Routine Encounter for therapeutic drug monitoring Expected: 04/13/2025, Expires: 07/13/2025 [facility] Work Phone: Comment on above: Expected: 04/13/2025 , Expires: 07/13/2025 Start: 04-13-2025 End: 07-13-2025 Comprehensive metabolic 2000 panel - Serum or Plasma COMPREHENSIVE METABOLIC PANEL Lab Routine Encounter for therapeutic drug monitoring Expected: 04/13/2025, Expires: 07/13/2025 [facility] Comment on above: Expected: 04/13/2025 , Expires: 07/13/2025 Start: 04-13-2025 End: 07-13-2025 Hemoglobin A1c in Blood HEMOGLOBIN A1C Lab Routine Controlled type 2 diabetes mellitus without complication, without long-term current use of insulin (HCC) Expected: 04/13/2025, Expires: 07/13/2025 [facility] Comment on above: Expected: 04/13/2025 , Expires: 07/13/2025 Start: 04-13-2025 End: 07-13-2025 LIPID PANEL, NONFASTING LIPID PANEL, NONFASTING Lab Routine Mixed hyperlipidemia Expected: 04/13/2025, Expires: 07/13/2025 [facility] Comment on above: Expected: 04/13/2025 , Expires: 07/13/2025 Start: 03-22-2025 Annual PCP Team Box Estimator jr Disease Visit Annual PCP Team Chronic Disease Visit [facility] Start: 03-13-2025 End: 06-12-2025 Microalbumin/Creatinine [Mass Ratio] in Urine ALBUMIN/CREATININE RATIO, URINE Lab Routine Expected: 03/13/2025, Expires: 06/12/2025 [facility] Comment on above: Expected: 03/13/2025 , Expires: 06/12/2025 Start: 03-10-2025 End: 03-10-2025 Patient encounter procedure [facility] Comment on above: 3 month follow up Start: 02-09-2025 End: 02-09-2025 Patient encounter procedure 02/09/2025 3:00 PM EDT Office Visit Geriatrics [address] [place], [place] [id number] Xochitl Castrejon MD [address] [place] [address] 3 MONTH FOLLOW UP Geriatrics Comment on above: 3 MONTH FOLLOW UP Start: 02-02-2025 Annual PCP Team Box Estimator jr Disease Visit Annual PCP Team Chronic Disease Visit [facility] Start: 02-02-2025 BP Controlled (<130/80) BP Controlle d (<130/80) [facility] Start: 01-19-2025 Annual PCP Team Box Estimator jr Disease Visit Annual PCP Team Chronic Disease Visit [facility] Start: 01-19-2025 BP Controlled (<130/80) BP Controlle d (<130/80) [facility] Start: 01-10-2025 Glaucoma screening Dilated Retinal E xam [facility] Start: 01-04-[facility]25 Annual PCP Team Box Estimator jr Disease Visit Annual PCP Team Chronic Disease Visit [facility] Start: 01-04-2025 BP Controlled (<130/80) BP Controlle d (<130/80) [facility] Start: 01-04-2025 Pneumococcal Vaccine : 50+ (2 of 2 - PCV) Pneumococcal Vaccine: 50+ (2 of 2 - PCV) [facility] Comment on above: Postponed from 10/01 (Declined at this time) Start: 01-04-2025 Pneumococcal Vaccine : 65+ (2 of 2 - PCV) Pneumococcal Vaccine: 65+ (2 of 2 - PCV) [facility] Comment on above: Postponed from 10/01 (Declined at this time) Start: 12-07-2024 End: 02-24-2025 25-hydroxyvitamin D3 [Mass/volume] in Serum or Plasma [facility] Comment on above: Expected: 12/07/2024 (Approximate), Expires: 02/24/2025 Start: 12-07-2024 End: 02-08-2025 CBC W Auto Differential panel - Blood [facility] Work Phone: Comment on above: Expected: 12/07/2024 (Approximate), Expires: 02/08/2025 Start: 12-07-2024 End: 02-08-2025 Comprehensive metabolic 2000 panel - Serum or Plasma [facility] Comment on above: Expected: 12/07/2024 (Approximate), Expires: 02/08/2025 Start: 12-07-2024 End: 02-08-2025 Hemoglobin A1c in Blood [facility] Comment on above: Expected: 12/07/2024 (Approximate), Expires: 02/08/2025 Start: 12-07-2024 End: 02-08-2025 Microalbumin/Creatinine [Mass Ratio] in Urine ALBUMIN/CREATININE RATIO, URINE Lab Routine Controlled type 2 diabetes mellitus without complication, without long-term current use of insulin (HCC) Expected: 12/07/2024 (Approximate), Expires: 02/08/2025 [facility] Comment on above: Expected: 12/07/2024 (Approximate), Expires: 02/08/2025 Start: 12-07-2024 End: 12-07-2024 Patient encounter procedure 12/07/2024 10:00 AM EST Office Visit [facility] [address] [place], [place] [id number] Joon Lopez MD [address] [place] [id number] 3 month follow up [facility] Comment on above: 3 month follow up Start: 11-25-2024 End: 02-24-2025 25-hydroxyvitamin D3 [Mass/volume] in Serum or Plasma VITAMIN D 25 HYDROXY Lab Routine Vitamin D deficiency Expected: 11/25/2024, Expires: 02/24/2025 [facility] Work Phone: Comment on above: Expected: 11/25/2024 , Expires: 02/24/2025 Start: 11-10-2024 End: 11-10-2024 Patient encounter procedure 11/10/2024 11:30 AM EST Office Visit Geriatrics [address] [facility] [place] [phone] Xochitl Castrejon MD [address] [place] [address] 6 week follow up Geriatrics Comment on above: 6 week follow up Start: 11-09-2024 End: 02-08-2025 CBC W Auto Differential panel - Blood COMPLETE BLOOD COUNT AND DIFFERENTIAL Lab Routine Encounter for therapeutic drug monitoring Expected: 11/09/2024, Expires: 02/08/2025 [facility] Work Phone: Comment on above: Expected: 11/09/2024 , Expires: 02/08/2025 Start: 11-09-2024 End: 02-08-2025 Comprehensive metabolic 2000 panel - Serum or Plasma COMPREHENSIVE METABOLIC PANEL Lab Routine Encounter for therapeutic drug monitoring Expected: 11/09/2024, Expires: 02/08/2025 [facility] Comment on above: Expected: 11/09/2024 , Expires: 02/08/2025 Start: 11-09-2024 End: 02-08-2025 Hemoglobin A1c in Blood HEMOGLOBIN A1C Lab Routine Controlled type 2 diabetes mellitus without complication, without long-term current use of insulin (HCC) Expected: 11/09/2024, Expires: 02/08/2025 [facility] Comment on above: Expected: 11/09/2024 , Expires: 02/08/2025 Start: 11-09-2024 End: 02-08-2025 Lipid 1996 panel - Serum or Plasma LIPID PANEL BASIC Lab Routine Mixed hyperlipidemia Expected: 11/09/2024, Expires: 02/08/2025 [facility] Comment on above: Expected: 11/09/2024 , Expires: 02/08/2025 Start: 11-09-2024 End: 02-08-2025 Microalbumin/Creatinine [Mass Ratio] in Urine ALBUMIN/CREATININE RATIO, URINE Lab Routine Controlled type 2 diabetes mellitus without complication, without long-term current use of insulin (HCC) Expected: 11/09/2024, Expires: 02/08/2025 [facility] Comment on above: Expected: 11/09/2024 , Expires: 02/08/2025 Start: 10-27-2024 End: 10-27-2024 Patient encounter procedure 10/27/2024 3:00 PM EST Office Visit Geriatrics [address] [place] [id number] Xochitl Castrejon MD [address] [place] [address] 6 week follow up Geriatrics Comment on above: 6 week follow up Start: 10-26-2024 Advance Directive Discussion Advance Directive Discussion [facility] Start: 10-26-2024 Medicare Advantage A nnual Wellness Visit Medicare Advantage Annual Wellness Visit [facility] Start: 10-07-2024 Annual PCP Team Box Estimator jr Disease Visit Annual PCP Team Chronic Disease Visit [facility] Start: 09-28-2024 End: 09-28-2024 Patient encounter procedure 09/28/2024 9:40 AM EST Appointment [facility] [address] [place] [address] MOVED TO 09/28/2024 @ 0940 [place]IS [place]. [facility] Comment on above: MOVED TO 09/28/2024 @ 0940 [place]. Start: 09-26-2024 End: 09-26-2024 Patient encounter procedure 09/26/2024 6:20 AM EST Appointment [facility] [address] [place] [address] Cognitive impairment, mild, so stated [G31.84]- Patient has pacemaker, she checked with her bindery machine setter and stated her Pacemaker is MRI compatible, please review [facility] Comment on above: Cognitive impairment , mild, so stated [G31.84]- Patient has pacemaker, she checked with her bindery machine setter and stated her Pacemaker is MRI compatible, please review Start: 09-23-2024 Annual PCP Team Box Estimator jr Disease Visit Annual PCP Team Chronic Disease Visit [facility] Start: 09-23-2024 BP Controlled (<130/80) BP Controlle d (<130/80) [facility] Start: 09-23-2024 Covid-19 Vaccine (#1) Covid-19 Vacci ne (#1) [facility] Comment on above: Postponed from 08/28 (Declined at this time) Start: 09-23-2024 Covid-19 Vaccine () Covid-19 Vaccine () [facility] Comment on above: Postponed from 06/26 (Declined at this time) Start: 09-23-2024 Hepatitis B screening Urine Albumin:Creatinine Ratio [facility] Start: 09-23-2024 Hepatitis B surface antibody level LDL Cholesterol [facility] Start: 09-23-2024 RSV Vaccine (1 - 1-d ose 60+ series) RSV Vaccine (1 - 1-dose 60+ series) [facility] Comment on above: Postponed from 02/25 (Declined at this time) Start: 09-23-2024 RSV Vaccine (1 - 1-d ose 75+ series) RSV Vaccine (1 - 1-dose 75+ series) [facility] Comment on above: Postponed from 02/25 (Declined at this time) Start: 09-22-2024 Hemoglobin A1c measurement HbA1C [facility] Start: 09-21-2024 End: 09-21-2024 Patient encounter procedure 09/21/2024 9:00 AM EST Office Visit Geriatrics [address] [place] [phone] Xochitl Castrejon MD [address] [place] [id number] 6 week follow up Geriatrics Comment on above: 6 week follow up Start: 09-09-2024 End: 09-09-2024 Patient encounter procedure 09/09/2024 11:40 AM EST Office Visit [facility] [address] [place] [address] Whitney Hammond APRN.MANAGER FRONT [address] [place] [address] 3 month follow up [facility] Comment on above: 3 month follow up Start: 08-03-2024 End: 11-02-2024 Cobalamin (Vitamin B12) [Mass/volume] in Serum or Plasma VITAMIN B12 Lab Routine Cognitive impairment, mild, so stated Expected: 08/03/2024, Expires: 11/02/2024 [facility] Work Phone: Comment on above: Expected: 08/03/2024 , Expires: 11/02/2024 Start: 08-03-2024 End: 08-03-2024 Patient encounter procedure [facility] Comment on above: Cognitive impairment [R41.89] Start: 06-26-2024 Covid-19 Vaccine ( season) Covid-19 Vaccine ( season) [facility] Start: 06-26-2024 Covid-19 Vaccine ( season) Covid-19 Vaccine () [facility] Start: 06-26-2024 Influenza vaccination C [facility] Start: 06-22-2024 ANNUAL PCP TEAM GEOPHYSICAL PARTY CHIEF JR DISEASE VISIT ANNUAL PCP TEAM CHRONIC DISEASE VISIT [facility] Start: 06-22-2024 BP CONTROLLED (<130/80) BP CONTROLLE D (<130/80) [facility] Start: 06-22-2024 End: 06-22-2024 Patient encounter procedure [facility] Comment on above: 3 Month follow up 3 Month follow up/ho conner f/u Start: 06-08-2024 End: 06-08-2024 Patient encounter procedure [facility] Comment on above: Cognitive impairment [R41.89] BRIAN Consult Start: 05-12-2024 ANNUAL PCP TEAM GEOPHYSICAL PARTY CHIEF JR DISEASE VISIT ANNUAL PCP TEAM CHRONIC DISEASE VISIT [facility] Start: 05-11-2024 End: 05-11-2024 Patient encounter procedure 05/11/2024 2:20 PM EDT Office Visit [facility] [address] [place] [address] Joon Lopez MD [address] [place] [address] HOSPITAL FOLLOW UP [facility] Comment on above: HOSPITAL FOLLOW UP Start: 04-24-2024 Influenza vaccination Influenza Vacc ine (#1) [facility] Comment on above: Postponed from 06/26 (Declined at this time) Start: 04-03-2024 ANNUAL PCP TEAM GEOPHYSICAL PARTY CHIEF JR DISEASE VISIT ANNUAL PCP TEAM CHRONIC DISEASE VISIT [facility] Start: 03-31-2024 ANNUAL PCP TEAM GEOPHYSICAL PARTY CHIEF JR DISEASE VISIT ANNUAL PCP TEAM CHRONIC DISEASE VISIT [facility] Start: 03-31-2024 BP CONTROLLED (<130/80) BP CONTROLLE D (<130/80) [facility] Start: 03-31-2024 Hepatitis B surface antibody level LDL CHOLESTEROL [facility] Start: 03-23-2024 Hemoglobin A1c measurement HbA1C [facility] Start: 03-23-2024 Hemoglobin A1c/Hemoglobin.total in Blood HbA1C [facility] Start: 03-22-2024 End: 03-22-2024 Patient encounter procedure 03/22/2024 9:00 AM EDT Office Visit Internal Medicine [address] [address] Whitney Hammond APRN.MANAGER FRONT [address] [place], [place] [address] 3 Month Follow up [facility] Comment on above: 3 Month Follow up Start: 03-17-2024 BP CONTROLLED (<130/80) BP CONTROLLE D (<130/80) [facility] Start: 01-30-2024 Patient discharge [facility] Start: 01-30-2024 Computed tomography of abdomen and pelvis with intravenous contrast Abdomen/Pelvis W IV Cont ONLY [facility] Start: 01-30-2024 CT Abdomen and Pelvi s W contrast IV [facility] Start: 01-30-2024 Referral to service [facility] Start: 01-30-2024 Consultation [facility] Start: 01-30-2024 Inhalation therapy procedure [facility] Start: 01-29-2024 Ambulation without limitation [facility] Start: 01-29-2024 Assessment of risk o f venous thromboembolism [facility] Start: 01-29-2024 Insertion of cathete r into peripheral vein [facility] Start: 01-29-2024 Measuring intake and output [facility] Start: 01-29-2024 Providing care accor ding to standard [facility] Start: 01-29-2024 Referral to occupati onal therapist [facility] Start: 01-29-2024 Referral to service [facility] Start: 01-29-2024 Following clinical p athway protocol [facility] Start: 01-29-2024 Care regimes management [facility] Start: 01-29-2024 Notification of physician [facility] Start: 01-29-2024 End: 01-29-2024 [facility] Start: 01-29-2024 Verification routine [facility] Start: 01-29-2024 Hospital admission, emergency, from emergency room, medical nature [facility] Start: 01-29-2024 Admission procedure [facility] Start: 01-29-2024 Patient referral to dietitian [facility] Start: 01-22-2024 Anes transurethral w/urethrocystoscopy nos ANESTH BLADDER SURGERY [facility] Start: 01-22-2024 Cysto w/insert urete ral stent CYSTOSCOPY AND TREATMENT [facility] Start: 01-22-2024 Cysto w/urtroscopy w /tx ureteral stricture CYSTO/URETERO STRICTURE TX [facility] Start: 01-22-2024 Cysto/pyeloscopy bx&/fulguration pelivc lesion CYSTOURETERO W/BIOPSY [facility] Start: 01-22-2024 Patient discharge [facility] Start: 01-22-2024 Ambulation without limitation [facility] Start: 01-22-2024 Medical regimen orde rs management [facility] Start: 01-22-2024 Medication education [facility] Start: 01-22-2024 Provision of mobilit y device [facility] Start: 01-22-2024 Taking patient vital signs [facility] Start: 01-22-2024 [facility] Start: 01-05-2024 End: 04-05-2024 Bacteria identified in Urine by Culture URINE CULTURE Microbiology Routine Urinary incontinence without sensory awareness Dysuria Nocturia more than twice per night Urinary urgency Expected: 01/05/2024, Expires: 04/05/2024 [facility] Comment on above: Expected: 01/05/2024 , Expires: 04/05/2024 Start: 01-05-2024 End: 04-05-2024 Urinalysis complete panel - Urine [facility] Comment on above: Ordered: 01/05/2024 Expected: 01/05/2024 , Expires: 04/05/2024 Start: 12-31-2023 Patient discharge [facility] Start: 12-30-2023 Care regimes management [facility] Start: 12-30-2023 Notification of physician [facility] Start: 12-30-2023 Assessment of risk o f venous thromboembolism [facility] Start: 12-30-2023 Incentive spirometry [facility] Start: 12-30-2023 Insertion of cathete r into peripheral vein [facility] Start: 12-30-2023 Providing care accor ding to standard [facility] Start: 12-30-2023 Provision of activit y privileges [facility] Start: 12-30-2023 Fall prevention [facility] Start: 12-30-2023 Introduction of urin nick catheter [facility] Start: 12-30-2023 Oxygen therapy [facility] Start: 12-30-2023 Referral to occupati onal therapist [facility] Start: 12-30-2023 Referral to service [facility] Start: 12-30-2023 Consultation [facility] Start: 12-30-2023 Continuous positive airway pressure ventilation treatment [facility] Start: 12-30-2023 Measuring intake and output [facility] Start: 12-30-2023 End: 12-30-2023 [facility] Start: 12-30-2023 Patient referral to dietitian [facility] Start: 12-29-2023 Following clinical p athway protocol [facility] Start: 12-29-2023 Admission procedure [facility] Start: 12-27-2023 ANNUAL PCP TEAM GEOPHYSICAL PARTY CHIEF JR DISEASE VISIT ANNUAL PCP TEAM CHRONIC DISEASE VISIT [facility] Start: 12-27-2023 BP CONTROLLED (<130/80) BP CONTROLLE D (<130/80) [facility] Start: 12-27-2023 Urine microalbumin profile [facility] Comment on above: Postponed from 10/03 (Declined at this time) Start: 12-23-2023 3 comp foot exam completed DIABETIC FOOT EXAM [facility] Comment on above: Postponed from 03/11 (Postponed To Appropriate Date) Start: 12-23-2023 Diabetic foot examination Diabetic F oot Exam [facility] Comment on above: Postponed from 03/11 (Postponed To Appropriate Date) Start: 11-28-2023 [facility] Start: 11-09-2023 [facility] Start: 10-26-2023 Advance Directive Discussion Advance Directive Discussion [facility] Start: 10-26-2023 Behavioral Health Screening Behavioral Health Screening [facility] Start: 10-26-2023 Depression Assessment Depression Ass essment [facility] Start: 10-02-2023 [facility] Start: 09-30-2023 Hemoglobin A1c/Hemoglobin.total in Blood HBA1C [facility] Start: 09-25-2023 BP CONTROLLED (<130/80) BP CONTROLLE D (<130/80) [facility] Start: 09-03-2023 End: 11-03-2023 ALBUMIN/CREAT RATIO RND UR ALBUMIN/CREAT RATIO RND UR Lab Routine Controlled type 2 diabetes mellitus without complication, without long-term current use of insulin (HCC) Expected: 09/03/2023 (Approximate), Expires: 11/03/2023 [facility] Work Phone: Comment on above: Expected: 09/03/2023 (Approximate), Expires: 11/03/2023 Start: 09-03-2023 End: 11-03-2023 CBC panel - Blood by Automated count CBC Lab Routine Primary hypertension Expected: 09/03/2023 (Approximate), Expires: 11/03/2023 [facility] Work Phone: Comment on above: Expected: 09/03/2023 (Approximate), Expires: 11/03/2023 Start: 09-03-2023 End: 11-03-2023 Comprehensive metabolic 2000 panel - Serum or Plasma COMP METABOLIC PANEL Lab Routine Controlled type 2 diabetes mellitus without complication, without long-term current use of insulin (HCC) Primary hypertension Expected: 09/03/2023 (Approximate), Expires: 11/03/2023 [facility] Work Phone: Comment on above: Expected: 09/03/2023 (Approximate), Expires: 11/03/2023 Start: 09-03-2023 End: 11-03-2023 Hemoglobin A1c in Blood HGB A1C Lab Routine Controlled type 2 diabetes mellitus without complication, without long-term current use of insulin (HCC) Expected: 09/03/2023 (Approximate), Expires: 11/03/2023 [facility] Work Phone: Comment on above: Expected: 09/03/2023 (Approximate), Expires: 11/03/2023 Start: 09-03-2023 End: 11-03-2023 Lipid 1996 panel - Serum or Plasma LIPID PANEL BASIC Lab Routine Primary hypertension Mixed hyperlipidemia Expected: 09/03/2023 (Approximate), Expires: 11/03/2023 [facility] Work Phone: Comment on above: Expected: 09/03/2023 (Approximate), Expires: 11/03/2023 Start: 09-01-2023 [facility] Start: 07-01-2023 ANNUAL PCP TEAM GEOPHYSICAL PARTY CHIEF JR DISEASE VISIT ANNUAL PCP TEAM CHRONIC DISEASE VISIT [facility] Start: 07-01-2023 COVID-19 VACCINE (#1) COVID-19 VACCI NE (#1) [facility] Comment on above: Postponed from 08/28 (Declined at this time) Start: 06-26-2023 Influenza vaccination [facility] Start: 05-06-2023 ANNUAL PCP TEAM GEOPHYSICAL PARTY CHIEF JR DISEASE VISIT ANNUAL PCP TEAM CHRONIC DISEASE VISIT [facility] Start: 04-24-2023 Influenza vaccination INFLUENZA (#1) [facility] Comment on above: Postponed from 06/26 (Declined at this time) Start: 03-31-2023 End: 05-31-2023 Comprehensive metabolic 2000 panel - Serum or Plasma [facility] Work Phone: Comment on above: Expected: 03/31/2023 , Expires: 05/31/2023 Start: 03-31-2023 End: 05-31-2023 Lipid 1996 panel - Serum or Plasma [facility] Work Phone: Comment on above: Expected: 03/31/2023 , Expires: 05/31/2023 Start: 03-25-2023 Adult depression scr eening assessment DEPRESSION SCREENING [facility] Start: 03-25-2023 ANNUAL PCP TEAM GEOPHYSICAL PARTY CHIEF JR DISEASE VISIT ANNUAL PCP TEAM CHRONIC DISEASE VISIT [facility] Start: 03-25-2023 BP CONTROLLED (<130/80) BP CONTROLLE D (<130/80) [facility] Start: 03-25-2023 SHINGRIX VACCINE (1 of 2) GIBSON GRIX VACCINE (1 of 2) [facility] Comment on above: Postponed from 02/25 (Declined at this time) Start: 01-27-2023 Glaucoma screening Dilated Retinal E xam [facility] Start: 01-27-2023 Hepatitis C antibody , confirmatory test DILATED RETINAL EXAM [facility] Start: 01-26-2023 End: 03-28-2023 ALBUMIN/CREAT RATIO RND UR ALBUMIN/CREAT RATIO RND UR Lab Routine Controlled type 2 diabetes mellitus without complication, without long-term current use of insulin (HCC) Expected: 01/26/2023 (Approximate), Expires: 03/28/2023 [facility] Work Phone: Comment on above: Expected: 01/26/2023 (Approximate), Expires: 03/28/2023 Start: 01-26-2023 End: 03-28-2023 CBC panel - Blood by Automated count CBC Lab Routine Primary hypertension Expected: 01/26/2023 (Approximate), Expires: 03/28/2023 [facility] Work Phone: Comment on above: Expected: 01/26/2023 (Approximate), Expires: 03/28/2023 Start: 01-26-2023 End: 03-28-2023 Comprehensive metabolic 2000 panel - Serum or Plasma COMP METABOLIC PANEL Lab Routine Controlled type 2 diabetes mellitus without complication, without long-term current use of insulin (HCC) Primary hypertension Expected: 01/26/2023 (Approximate), Expires: 03/28/2023 [facility] Work Phone: Comment on above: Expected: 01/26/2023 (Approximate), Expires: 03/28/2023 Start: 01-26-2023 End: 03-28-2023 Hemoglobin A1c in Blood HGB A1C Lab Routine Controlled type 2 diabetes mellitus without complication, without long-term current use of insulin (HCC) Expected: 01/26/2023 (Approximate), Expires: 03/28/2023 [facility] Work Phone: Comment on above: Expected: 01/26/2023 (Approximate), Expires: 03/28/2023 Start: 01-26-2023 End: 03-28-2023 Lipid 1996 panel - Serum or Plasma LIPID PANEL BASIC Lab Routine Mixed hyperlipidemia Expected: 01/26/2023 (Approximate), Expires: 03/28/2023 [facility] Work Phone: Comment on above: Expected: 01/26/2023 (Approximate), Expires: 03/28/2023 Start: 01-17-2023 ANNUAL PCP TEAM GEOPHYSICAL PARTY CHIEF JR DISEASE VISIT ANNUAL PCP TEAM CHRONIC DISEASE VISIT [facility] Start: 01-17-2023 BP CONTROLLED (<130/80) BP CONTROLLE D (<130/80) [facility] Start: 01-17-2023 SPIROMETRY SPIROMETRY [facility] Comment on above: Postponed from 02/25 (Declined at this time) Start: 11-22-2022 Urine microalbumin profile DTA P,TDAP,TD (2 - Td or Tdap) [facility] Comment on above: Postponed from 10/03 (Declined at this time) Start: 10-26-2022 ADVANCE DIRECTIVE DISCUSSION ADVANCE DIRECTIVE DISCUSSION [facility] Start: 10-26-2022 DEPRESSION ASSESSMENT DEPRESSION ASS ESSMENT [facility] Start: 10-16-2022 Hepatitis B screening URINE ALBUMIN:CREATININE RATIO [facility] Start: 10-16-2022 Hepatitis B surface antibody level LDL CHOLESTEROL [facility] Start: 09-24-2022 Hemoglobin A1c/Hemoglobin.total in Blood HBA1C [facility] Start: 09-24-2022 PNEUMOCOCCAL: 65+ (2 - PCV) PNEUMOCOCCAL: 65+ (2 - PCV) [facility] Comment on above: Postponed from 10/01 (Declined at this time) Start: 06-26-2022 Influenza vaccination [facility] Start: 06-19-2022 Patient discharge [facility] Work Phone: Start: 06-18-2022 Application of intermittent pneumatic compression device [facility] Work Phone: Start: 06-18-2022 Prothrombin time [facility] Work Phone: Start: 06-18-2022 Thyroid stimulating hormone measurement [facility] Work Phone: Start: 06-18-2022 [facility] Work Phone: Start: 06-18-2022 Following clinical p athway protocol [facility] Work Phone: Start: 06-18-2022 Aspiration precautions [facility] Work Phone: Start: 06-18-2022 Assessment of risk o f venous thromboembolism [facility] Work Phone: Start: 06-18-2022 Bacteria identified in Sputum by Culture [facility] Work Phone: Start: 06-18-2022 Cardiac monitoring [facility] Work Phone: Start: 06-18-2022 Care regimes management [facility] Work Phone: Start: 06-18-2022 Catheterization of vein [facility] Work Phone: Start: 06-18-2022 Continuous positive airway pressure ventilation treatment [facility] Work Phone: Start: 06-18-2022 Continuous pulse oximetry [facility] Work Phone: Start: 06-18-2022 Elevation of head of bed [facility] Work Phone: Start: 06-18-2022 Exercises [facility] Work Phone: Start: 06-18-2022 Fall prevention [facility] Work Phone: Start: 06-18-[address] anned interventions [facility] Work Phone: Start: 06-18-2022 Incentive spirometry [facility] Work Phone: Start: 06-18-2022 Inhalation therapy procedure [facility] Work Phone: Start: 06-18-2022 Insertion of cathete r into peripheral vein [facility] Work Phone: Start: 06-18-2022 Introduction of urin nick catheter [facility] Work Phone: Start: 06-18-2022 Measuring intake and output [facility] Work Phone: Start: 06-18-2022 Notification of physician [facility] Work Phone: Start: 06-18-2022 Oxygen therapy [facility] Work Phone: Start: 06-18-2022 Patient referral to dietitian [facility] Work Phone: Start: 06-18-2022 Providing care accor ding to standard [facility] Work Phone: Start: 06-18-2022 Provision of activit y privileges [facility] Work Phone: Start: 06-18-2022 Referral to occupati onal therapist [facility] Work Phone: Start: 06-18-2022 Referral to service [facility] Work Phone: Start: 06-18-2022 Speech therapy assessment [facility] Work Phone: Start: 06-18-2022 Taking nasal swab [facility] Work Phone: Start: 06-18-2022 Tobacco use cessatio n education [facility] Work Phone: Start: 06-18-2022 End: 06-18-2022 [facility] Work Phone: Start: 06-18-2022 Streptococcus pneumo niae antigen assay [facility] Work Phone: Start: 06-18-2022 Admission procedure [facility] Work Phone: Start: 06-18-2022 End: 06-18-2022 [facility] Work Phone: Start: 06-18-2022 End: 06-18-2022 Blood culture [facility] Work Phone: Start: 06-18-2022 Patient referral to dietitian [facility] Work Phone: Start: 06-17-2022 [facility] Work Phone: Start: 06-17-2022 End: 06-17-2022 [facility] Work Phone: Start: 06-16-2022 Plain chest X-ray Chest 1 View (Port able) [facility] Work Phone: Start: 06-16-2022 XR Chest Single view [facility] Work Phone: Start: 04-16-2022 Hemoglobin A1c/Hemoglobin.total in Blood HBA1C [facility] Start: 04-07-2022 COVID-19 VACCINE (#1) COVID-19 VACCI NE (#1) [facility] Comment on above: Postponed from 02/25 (Declined at this time) Start: 04-07-2022 COVID-19 VACCINE (1) COVID-19 VACCIN E (1) [facility] Comment on above: Postponed from 02/25 (Declined at this time) Start: 03-25-2022 End: 05-25-2022 Basic metabolic 2000 panel - Serum or Plasma BASIC METABOLIC PNL Lab Routine Controlled type 2 diabetes mellitus without complication, without long-term current use of insulin (HCC) Expected: 03/25/2022, Expires: 05/25/2022 [facility] Work Phone: Comment on above: Expected: 03/25/2022 , Expires: 05/25/2022 Start: 03-25-2022 End: 05-25-2022 CBC panel - Blood by Automated count CBC Lab Routine Encounter for long-term current use of medication Expected: 03/25/2022, Expires: 05/25/2022 [facility] Work Phone: Comment on above: Expected: 03/25/2022 , Expires: 05/25/2022 Start: 03-11-2022 3 comp foot exam completed DIABETIC FOOT EXAM [facility] Start: 03-11-2022 Adult depression scr eening assessment DEPRESSION SCREENING [facility] Start: 03-11-2022 Diabetic foot examination Diabetic F oot Exam [facility] Start: 03-11-2022 SHINGRIX VACCINE (1 of 2) GIBSON GRIX VACCINE (1 of 2) [facility] Comment on above: Postponed from 02/25 (Declined at this time) Start: 2022 RSV Vaccine (1 - 1-d ose 75+ series) RSV Vaccine (1 - 1-dose 75+ series) [facility] Start: 10-26-2021 DEPRESSION ASSESSMENT DEPRESSION ASS ESSMENT [facility] Start: 10-03-2021 Urine microalbumin profile [facility] Start: 08-04-2019 COLORECTAL CANCER SCREENING COLORECTAL CANCER SCREENING [facility] Start: 08-04-2019 FECAL OCCULT BLOOD FECAL OCCULT BLOO D [facility] Start: 02-15-2018 End: 02-15-2018 Appointment Appointment [facility] Work Phone: Start: 01-26-2018 End: 07-30-2017 *Hepatic Function Panel *Hepatic Function Panel [facility] Work Phone: Start: 01-26-2018 End: 07-30-2017 Lipid panel [AGGREGATE] *Lipid Profile CC PCP [facility] Work Phone: Start: 11-03-2017 End: 11-03-2017 Appointment [facility] Work Phone: Start: 10-12-2017 End: 05-11-2017 Echo tthrc r-t 2d w/wom-mode compl spec&colr d Echo Complete with Color Flow [facility] Work Phone: Start: 08-10-2017 End: 08-10-2017 Urine culture, bacteria Urine Culture [facility] Work Phone: Start: 07-27-2017 End: 07-27-2017 DJN DJN [facility] Work Phone: Start: 07-27-2017 End: 07-27-2017 Follow Up Appt 6 months Follow Up Appt 6 months [facility] Work Phone: Start: 07-27-2017 End: 07-27-2017 Follow Up BP Check Follow Up BP Check [facility] Work Phone: Start: 07-20-2017 End: 07-27-2017 *Hepatic Function Panel *Hepatic Function Panel [facility] Work Phone: Start: 07-20-2017 End: 07-27-2017 Lipid panel [AGGREGATE] *Lipid Profile CC PCP [facility] Work Phone: Start: 05-11-2017 End: 05-11-2017 DMB DMB [facility] Work Phone: Start: 05-11-2017 End: 05-11-2017 Follow Up Appt 6 months Follow Up Appt 6 months [facility] Work Phone: Start: 05-01-2017 End: 05-05-2017 INR Coag RelTime (PPP) *PT/INR - Standing Order [facility] Work Phone: Start: 03-12-2017 End: 03-12-2017 CSM CSM [facility] Work Phone: Start: 03-12-2017 End: 03-12-2017 Follow Up Appt 2 months Follow Up Appt 2 months [facility] Work Phone: Start: 03-12-2017 End: 03-12-2017 Pulmonary Function Test - complete Pulmonary Function Test - complete [facility] Work Phone: Start: 02-04-2017 End: 02-04-2017 Ecg routine ecg w/least 12 lds w/i&r EKG (In office) [facility] Work Phone: Start: 01-30-2017 End: 01-19-2017 *Hepatic Function Panel *Hepatic Function Panel [facility] Work Phone: Start: 01-30-2017 End: 01-19-2017 Lipid panel [AGGREGATE] *Lipid Profile CC PCP [facility] Work Phone: Start: 01-26-2017 End: 01-19-2017 *BMP *BMP [facility] Work Phone: Start: 01-12-2017 End: 01-12-2017 Cardioversion Card[facility]version [facility] [facility] Work Phone[facility] Start: 01-12-2017 End: 07-16-2017 DJN DJN [facility] Work Phone: Start: 01-12-2017 End: 07-16-2017 Follow Up Appt 6 months Follow Up Appt 6 months [employer] Work Phone: Start: 01-05-2017 End: 01-16-2017 Complete sleep workup (PSG,CPAP as indicated) & Follow up Complete sleep workup (PSG,CPAP as indicated) & Follow up [facility] Work Phone: Start: 01-05-2017 End: 01-16-2017 DMB DMB [facility] Work Phone: Start: 01-05-2017 End: 01-16-2017 Follow Up Appt 2 months Follow Up Appt 2 months [employer] Work Phone: Start: 01-05-2017 End: 01-16-2017 Pulmonary Function Test - complete Pulmonary Function Test - complete [employer] Phone: Start: 01-05-2017 End: 01-16-2017 Pulmonary stress test/simple Pulmonary stress testing; simple (eg, 6-minute walk) [facility] Work Phone: Start: 10-01-2013 Pneumococcal Vaccine : 50+ (2 of 2 - PCV) Pneumococcal Vaccine: 50+ (2 of 2 - PCV) [facility] Start: 10-01-2013 Pneumococcal Vaccine : 65+ (2 - PCV) Pneumococcal Vaccine: 65+ (2 - PCV) [facility] Start: 10-01-2013 Pneumococcal Vaccine : 65+ (2 of 2 - PCV) Pneumococcal Vaccine: 65+ (2 of 2 - PCV) [facility] Start: 10-01-2013 PNEUMOCOCCAL: 65+ (2 - PCV) PNEUMOCOCCAL: 65+ (2 - PCV) [facility] Start: 2007 Hepatitis B Vaccine (1 of 3 - Risk 3-dose series) Hepatitis B Vaccine (1 of 3 - Risk 3-dose series) [facility] Start: 2007 RSV Vaccine (1 - 1-d ose 60+ series) RSV Vaccine (1 - 1-dose 60+ series) [facility] Start: 1997 SHINGRIX VACCINE (1 of 2) GIBSON GRIX VACCINE (1 of 2) [facility] Start: 02-26-1992 COLOGUARD (FIT-DNA) COLOGUARD (FIT-D NA) [facility] Start: 02-26-1992 Colonoscopy COLONOSCOPY [facility] Start: 02-26-[address] COLONOGRAPHY [facility] Start: 02-26-1992 SIGMOIDOSCOPY SIGMOIDOSCOPY [facility] Start: 1965 Anxiety Screening Anxiety Screening [facility] Start: 1965 BP CONTROLLED (<130/80) BP CONTROLLE D (<130/80) [facility] Start: 1965 Depression Screening Depression Scre ening [facility] Start: 1965 SPIROMETRY SPIROMETRY [facility] Start: 02-26-1952 COVID-19 VACCINE (#1) COVID-19 VACCI NE (#1) [facility] Start: 1947 COVID-19 VACCINE (#1) COVID-19 VACCI NE (#1) [facility] Alanine aminotransfe rase [Enzymatic activity/volume] in Serum or Plasma [facility] Work Phone: Albumin [Mass/volume ] in Serum or Plasma [facility] Work Phone: Alkaline phosphatase [Enzymatic activity/volume] in Serum or Plasma [facility] Work Phone: Anion gap measurement [facility] Work Phone: Aspartate aminotrans ferase [Enzymatic activity/volume] in Serum or Plasma [facility] Work Phone: Bacteria identified in Blood by Culture Blood Culture [facility] Work Phone: Bacteria identified in Urine by Culture Urine Culture [facility] Work Phone: Bacteria identified in Urine by Culture URINE CULTURE Microbiology Routine Hallucinations, unspecified Generalized weakness Ordered: 06/01/2024 [facility] Work Phone: Comment on above: Ordered: 06/01/2024 Bacteria identified in Urine by Culture URINE CULTURE Microbiology Routine Dysuria Ordered: 09/08/2024 [facility] Work Phone: Comment on above: Ordered: 09/08/2024 Bacteria identified in Urine by Culture BACTERIAL CULTURE, URINE Microbiology Routine Dysuria Ordered: 01/05/2025 [facility] Work Phone: Comment on above: Ordered: 01/05/2025 Bacteria identified in Urine by Culture BACTERIAL CULTURE, URINE Microbiology Routine Urinary tract infection with hematuria, site unspecified Ordered: 02/07/2025 [facility] Work Phone: Comment on above: Ordered: 02/07/2025 End: 04-16-2025 BD DXA TRABECULAR BONE SCORE (TBS) BD DXA TRABECULAR BONE SCORE (TBS) Radiology Routine Asymptomatic postmenopausal state Screening for osteoporosis Closed fracture of elbow, unspecified laterality, sequela 1 Occurrences starting 03/18/2024 until 04/16/2025 [facility] Comment on above: 1 Occurrences starti ng 03/18/2024 until 04/16/2025 Bilirubin, total measurement [facility] Work Phone: Blood culture [facility] Work Phone: BUN/Creatinine ratio [facility] Work Phone: Calcium [Mass/volume ] in Serum or Plasma [facility] Work Phone: Carbon dioxide, tota l [Moles/volume] in Serum or Plasma [facility] Work Phone: Chloride [Moles/volu me] in Serum or Plasma [facility] Work Phone: Cholesterol [Mass/vo lume] in Serum or Plasma [facility] Work Phone: Cholesterol in HDL [Mass/volume] in Serum or Plasma [facility] Work Phone: Cholesterol in LDL [Mass/volume] in Serum or Plasma [facility] Work Phone: Creatinine [Moles/vo lume] in Serum or Plasma [facility] Work Phone: End: 04-16-2025 DXA Skeletal system.axial Views for bone density DXA-AXIAL SKELETON Radiology Routine Asymptomatic postmenopausal state Screening for osteoporosis Closed fracture of elbow, unspecified laterality, sequela 1 Occurrences starting 03/18/2024 until 04/16/2025 [facility] Work Phone: Comment on above: 1 Occurrences starti ng 03/18/2024 until 04/16/2025 Exercise tolerance test [facility] Glucose [Mass/volume ] in Serum or Plasma [facility] Work Phone: Hematocrit [Volume Fraction] of Blood [facility] Work Phone: Hemoglobin [Mass/vol ume] in Blood [facility] Work Phone: Hemoglobin A1c/Hemoglobin.total in Blood [facility] Work Phone: Hemoglobin.gastroint estina l.lower [Presence] in Stool by Immunoassay FECAL OCCULT BLOOD TEST Lab Routine Colon cancer screening Ordered: 12/26/2022 [facility] Work Phone: Comment on above: Ordered: 12/26/2022 Hzv zoster vacc recombinant adjuvanted im njx ZOSTER VACCINE, RECOMBINANT (SHINGRIX) Immunization/Injection Routine Encounter for immunization 1 Occurrences starting 04/16/2023 [facility] Work Phone: Comment on above: 1 Occurrences starti ng 04/16/2023 INR in Blood by Coagulation assay [facility] Work Phone: Legionella pneumophi la Ag [Presence] in Urine [facility] Work Phone: Leukocytes [#/volume ] in Blood [facility] Work Phone: Magnesium [Mass/volu me] in Serum or Plasma [facility] Mean corpuscular hemoglobin concentration determination [facility] Work Phone: Mean corpuscular hemoglobin determination [facility] Work Phone: Measurement of renal function [facility] Work Phone: End: 09-02-2025 MR Brain WO contrast MRI BRAIN W QUANT WO IVCON Radiology Routine Cognitive impairment, mild, so stated 1 Occurrences starting 08/03/2024 until 09/02/2025 [facility] Comment on above: 1 Occurrences starti ng 08/03/2024 until 09/02/2025 End: 09-02-2025 MR Unspecified body region 3D post processing MRI 3D POST PROCESSING Radiology Routine Cognitive impairment, mild, so stated 1 Occurrences starting 08/03/2024 until 09/02/2025 [facility] Comment on above: 1 Occurrences starti ng 08/03/2024 until 09/02/2025 MR Unspecified body region 3D post processing MRI 3D POST PROCESSING Radiology Routine Cognitive impairment, mild, so stated 09/28/2024 10:56 AM EST [facility] Work Phone: Neutrophil count [facility] Work Phone: Neutrophil percent differential count [facility] Work Phone: Patient Education [facility] Work Phone: Patient referral [facility] Work Phone: Platelets [#/volume] in Blood [facility] Work Phone: Potassium [Moles/vol ume] in Serum or Plasma [facility] Work Phone: Prothrombin time [facility] Work Phone: Red blood cell count [facility] Work Phone: Red cell distributio n width determination [facility] Work Phone: Sodium [Moles/volume ] in Serum or Plasma [facility] Work Phone: End: 05-15-2024 SPIROMETRY - BASELINE AND POST DILATOR SPIROMETRY - BASELINE AND POST DILATOR PFT Routine Mild intermittent asthma without complication 1 Occurrences starting 04/16/2023 until 05/15/2024 [facility] Work Phone: Comment on above: 1 Occurrences starti ng 04/16/2023 until 05/15/2024 Streptococcus pneumo niae antigen assay [facility] Work Phone: Thyroid stimulating hormone measurement [facility] Work Phone: Total protein measurement [facility] Work Phone: Triglycerides measurement [facility] Work Phone: UA DIP, URINE (POC) UA DIP, URIN E (POC) Lab Routine Urinary incontinence without sensory awareness Dysuria Nocturia more than twice per night Urinary urgency Ordered: 01/05/2024 [facility] Work Phone: Comment on above: Ordered: 01/05/2024 Urea nitrogen [Mass/volume] in Serum or Plasma [facility] Work Phone: VLDL cholesterol measurement [facility] Work Phone: End: 04-12-2026 XR Knee - right 4 Views XR KNEE GENERAL 4V AP BOTH/PA BOTH/LAT/MERC RIGHT Radiology Routine Chronic pain of left knee Chronic pain of right knee 1 Occurrences starting 03/13/2025 until 04/12/2026 [facility] Comment on above: 1 Occurrences starti ng 03/13/2025 until 04/12/2026 XR Knee - right 4 Views XR KNEE GENERAL 4V AP BOTH/PA BOTH/LAT/MERC RIGHT Radiology Routine Chronic pain of left knee Chronic pain of right knee 03/13/2025 8:59 AM EDT [facility] [place] [facility] Immunizations Immunization Date Immunization Notes Care Provider Fa [facility] 08-19-2019 influenza virus vacc ine, unspecified formulation Joon Lopez MD Work Phone: [facility] 10-01-2012 pneumococcal polysaccharide vaccine, 23 valent Joon Lopez MD Work Phone: [facility] 10-03-2011 tetanus toxoid, redu fe diphtheria toxoid, and acellular pertussis vaccine, adsorbed Joon Lopez MD Work Phone: [facility] Payers Date Payer Category Payer Self-pay [id number] 2021 Medicare [employer] THP SECURECARE MDCR O [id number] 2021-Present [phone] [address] [place] [address] [facility] [id number] 2021 Medicare [employer] MEDIC[employer] THP SECURECARE MDCR O [id number] 2021-Present [phone] [address] [place] [address] [facility] [id number] 2021 Medicare (Managed Care) [facility] SECU RECARE [facility] [id number] 2016 Medicare [id number] 1945 Unknown [id number] 2.16840.1.251830.3.579 .2.627 Unknown [id number] 2.16840.1.506933.3.579 .2.462 Unknown [id number] 2.16840.1.233697.3.579 .2.462 Unknown [id number] 2.16.840.1.740792.3.579 .2.462 Unknown [id number] 2.16840.1.168538.3.579 .2.462 Unknown [id number] 2.16840.1.074347.3.579 .2.462 Unknown [id number] 2.840.1.925487.3.579 .2.462 Unknown [id number] 2.16.840.1.194804.3.579 .2.462 Unknown [id number] 2.840.1.648373.3.579 .2.462 Unknown [id number] 2.840.1.042279.3.579 .2.462 Unknown [id number] 2.840.1.769667.3.579 .2.462 Unknown [id number] 2.840.1.020639.3.579 .2.462 Unknown [id number] 2.840.1.873944.3.579 .2.462 Unknown [id number] 2.840.1.622914.3.579 .2.462 Unknown [id number] 2.840.1.996745.3.579 .2.462 Unknown [id number] 2.840.1.344316.3.579 .2.462 Unknown [id number] 2.840.1.116449.3.579 .2.462 Unknown [id number] 2.840.1.586646.3.579 .2.462 Unknown [id number] 2.840.1.155698.3.579 .2.462 Unknown [id number] 2.840.1.402803.3.579 .2.462 Unknown [id number] 2.840.1.132417.3.579 .2.462 Unknown [id number] 2.840.1.005859.3.579 .2.462 Unknown [id number] 2.840.1.912731.3.579 .2.462 Unknown [id number] 2.840.1.351291.3.579 .2.462 Unknown [id number] 2.16.840.1.456903.3.579 .2.462 Unknown [id number] 2.16.840.1.714377.3.579 .2.462 Unknown [id number] 2.16.840.1.473437.3.579 .2.462 Unknown [id number] 2.16.840.1.259138.3.579 .2.462 Unknown [id number] 2.16.840.1.139579.3.579 .2.462 Unknown [id number] 2.16.840.1.768244.3.579 .2.462 Unknown [id number] 2.16.840.1.203816.3.579 .2.462 Unknown [id number] 2.16.840.1.057545.3.579 .2.462 Unknown [id number] 2.16840.1.433907.3.579 .2.462 Unknown [id number] 2.16840.1.892354.3.579 .2.462 Unknown [id number] 2.16840.1.026460.3.579 .2.462 Unknown [id number] 2.16840.1.209290.3.579 .2.462 Social History Date Type Detail Facility Start: 10-14-2021 End: 01-29-2024 Tobacco smoking status INIS Unknown if ever smoked [facility] Start: 03-13-2020 None [facility] Start: 03-13-2020 Alone [facility] Start: 07-16-2020 Non-smoker [facility] Start: 1945 Sex Assigned At Female W [facility] Start: 02-02-2018 End: 01-04-2025 Tobacco smoking status NHIS Never smoked tobacco [facility] Start: 11-01-2021 End: 05-11-2025 Alcohol intake Current non-drinker of alcohol (finding) [facility] Start: 1945 Sex Assigned At Not on file [facility] Start: 01-07-2022 End: 07-01-2022 Exposure to SARS-CoV-2 (event) Not sure [facility] Start: 02-02-2018 End: 07-01-2022 Tobacco use and exposure Smokeless tobacco non-user [facility] Start: 03-31-2023 End: 04-16-2023 History of Social function [facility] Work Phone: Start: 03-31-2023 End: 04-16-2023 Tobacco use panel [facility] Work Phone: Adult Depression Screening Assessment 0 [facility] Work Phone: Tobacco smoking status No Smokin g Status Entered [facility] Start: 08-03-2024 Education 11 [facility] Start: 01-04-2025 End: 01-23-2025 Sex Female (finding) [facility] NEGATED: Highlighted row [facility] Medical Equipment Procedure Code Equipment Code Equipment Origin al Text Equipment Identifier Dates Cystoureteroscopy , with stent insertion Polymeric ureteral stent [id number] FDA Start: 01-22-2024 Cystoscopy, with retrograde pyelogram and ureteral stent insertion ([id number]) Polymeric ureteral stent [id number] FDA Start: 12-30-[address] MRI SURE SCAN PACEMAKER FDA Start: 04-01-[address] MRI SURE SCAN PACEMAKER FDA Start: 04-01-[address] MRI SURE SCAN PACEMAKER FDA Start: 04-01-2019 [id number] Start: 10-02-2015 End: 06-22-2023 Comment on above: Test glucose 1 x per day. Dx: 250.00. Insulin use: no Test blood sugar(s) 1 times daily. 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 Device Identifier Shelf Expiration Date Model / Serial / Lot Lead Pace Standard Mdt 5076 - [id number] Implanted: Qty: 1 on 04/01/2019 by Rodney Freed MD at [facility] Lead N/A: Heart [employer] PACER [id number] 01/28/2021 5076-45 / [id number] / Lead Pace His Bundle Df1 69cm - [id number] Implanted: Qty: 1 on 04/01/2019 by Rodney Freed MD at [facility] Lead N/A: Heart [employer] PACER [id number] 12/24/2020 [id number] / [id number] / [employer] ADVISA MRI SURE SCAN PACEMAKER FDA Start: 04-01-2019 [employer] KEEGAN STARKS MRI SURE SCAN PACEMAKER FDA Start: 04-01-2019 [employer] KEEGAN STARKS MRI SURE SCAN PACEMAKER FDA Start: 04-01-2019 ([id number]) Dual-chamber implantable pacemaker, rate-responsive [id number] FDA Start: 07-04-[address] MRI [...] Assessment Result Facility 01-30-2024 Functional status Ambulates [facility] Work Phone: 01-28-2024 Functional Status Independent [facility] 01-28-2024 Functional Status Standard Safet y ID band on, Allergy Band on, Call device within reach, Bed in low position, Wheels locked, personal items within reach, Visitor at bedside, Safety level maintained [facility] 12-31-2023 Functional status Ambulates;Bath room Privilege [facility] Work Phone: 06-19-2022 Functional status Ambulates [facility] Work Phone: 06-18-2022 Functional status Tolerates Activity Well [facility] Work Phone: 05-03-2015 Are you deaf, or do you have serious difficulty hearing No 05/03/2015 9:38 AM Guerline Philip LPN No [facility] 05-03-2015 Are you blind, or do you have serious difficulty seeing, even when wearing glasses No 05/03/2015 9:38 AM Guerline Philip LPN No [facility] 05-03-2015 Do you have serious difficulty walking or climbing stairs No 05/03/2015 9:38 AM Guerline Philip LPN No [facility] 05-03-2015 Do you have difficul ty dressing or bathing No 05/03/2015 9:38 AM Guerline Philip LPN No [facility] 05-03-2015 Because of a physica l, mental, or emotional condition, do you have difficulty doing errands alone such as visiting a physician's office or shopping No 05/03/2015 9:38 AM Guerline Philip LPN No [facility] Mental Status Date Assessment Result Facility 01-30-2024 Cognitive function Voice/Name [facility] Work Phone: 01-29-2024 Cognitive function Awake;Alert;A ppropriate;Fol lows Commands [facility] Work Phone: 01-28-2024 Mental Status Oriented x 4 [facility] 01-28-2024 Mental Status [facility] 01-22-2024 Cognitive function Level Of Cons ciousness Follows Commands;Lethargic [facility] Work Phone: 01-22-2024 Cognitive function Patient Orironnie roy Person;Place;Time [facility] Work Phone: 12-31-2023 Cognitive function Voice/Name [facility] Work Phone: 10-01-2023 Cognitive function Level Of Cons ciousness Awake;Alert;Appropriate;Fol lows Commands [facility] Work Phone: 05-09-2023 Cognitive function Level Of Cons ciousness Awake;Alert;Appropriate;Fol lows Commands [facility] Work Phone: 03-17-2023 Cognitive function Level Of Cons ciousness Awake;Alert;Appropriate [facility] Work Phone: 06-18-2022 Cognitive function Voice/Name [facility] Work Phone: 06-17-2022 Cognitive function Voice/Name [facility] Work Phone: 06-17-2022 Cognitive function Voice/Name [facility] Work Phone: 06-16-2022 Cognitive function Appropriate [facility] Work Phone: 05-03-2015 Because of a physica l, mental, or emotional condition, do you have serious difficulty concentrating, remembering, or making decisions No 05/03/2015 9:38 AM EDT Guerline Davlia LPN No [facility] Clinical Notes 09-29-2005 to 05-11-2025 Xochitl Castrejon MD - 05/11/2025 5:11 PM EDTPatient InstructionsElsie Head, RT(R) - 03/13/2025 8:20 AM EDTCWhitney wilson APRN.MANAGER FRONT - 03/13/2025 7:49 AM EDTPatient Instructions Note Date & Type Note Facility 05-11-2025 Note HNO ID: [id number] Author: XOCHITL CASTREJON MD Service: ? Author Type: Physician Type: Progress Notes Filed: 05/11/2025 17:14 Note Text: Reason for Visit Follow up HPI Keisha Red is a 80-year-old female with a history of cognitive impairment, accompanied by her daughter, presenting for follow-up. Keisha was started on donepezil 10 mg for memory issues during the last visit and has been taking it daily with the assistance of her daughter, who manages her medications using a pill organizer. Keisha reports feeling pretty good and the same as I always did since starting the medication. Her daughter notes a slight improvement in cognitive abilities but mentions that Keisha has become snarkier recently. Keisha acknowledges this change in behavior and expresses a desire to manage it. Keisha also takes sertraline, though the dosage is not specified. She lives independently and manages most of her activities of daily living, including bathing, laundry, and simple cooking, without issues. She enjoys doing laundry and watching TV but reports feeling bored and isolated at times. She has a limited social [place] and relies on her daughters for support, as her brother is less involved in her care. Keisha has a history of falls and is no longer driving, although she expresses a desire to do so. Her family does not feel comfortable with her driving due to safety concerns. She has been using a smartphone for 2-3 weeks but struggles with its functionality, leading her family to consider getting a landline for her. She also reports difficulty hearing her daughter on the phone when she uses a speaker system in her car, but denies any other hearing issues. Social History Tobacco Use Smoking status: Never Smokeless tobacco: Never Vaping Use Vaping status: Never Used Substance Use Topics Alcohol use: No Drug use: Never Past medical history, appointments, medications, allergies reviewed. Pertinent Lab/Diagnostic Studies are reviewed and discussed today Current Outpatient Medications: glimepiride (AMARYL) 2 mg tablet atorvastatin (LIPITOR) 10 mg tablet nitrofurantoin monohydrate and macrocrystal (MACROBID) 100 mg capsule triamcinolone acetonide (KENALOG) 0.1 % cream donepezil (ARICEPT) 10 mg tablet diclofenac (VOLTAREN ARTHRITIS PAIN) 1 % topical gel Magnesium Oxide 250 mg magnesium tab Cholecalciferol, Vitamin D3, 50 mcg (2,000 unit) cap cyanocobalamin (VITAMIN B-12) 1,000 mcg tab gabapentin (NEURONTIN) 300 mg capsule oxyCODONE IR (ROXICODONE) 5 mg immediate release tablet albuterol HFA (PROAIR HFA) 90 mcg/actuation inhaler oxybutynin ER (DITROPAN XL) 10 mg 24 hr tablet warfarin (COUMADIN) 5 mg tablet montelukast (SINGULAIR) 10 mg tablet TENS unit and electrodes cmpk tens unit electrodes (TENS UNITS ELECTRODES) 2X2 pads blood sugar diagnostic (BLOOD GLUCOSE TEST) test strip Lancets lancets sertraline (ZOLOFT) 100 mg tablet fluticasone-vilanterol (BREO ELLIPTA) 100-25 mcg/dose inhaler Health Maintenance Shingrix Vaccine(1 of 2) Pneumococcal Vaccine: 50+(2 of 2 - PCV) DTaP,Tdap,Td Vaccine(2 - Td or Tdap) RSV Vaccine(1 - 1-dose 75+ series) Diabetic Foot Exam Urine Albumin:Creatinine Ratio LDL Cholesterol Advance Directive Discussion Medicare Advantage Annual Wellness Visit Dilated Retinal Exam@ Review Of Systems Ears/Nose/Mouth/Throat: (+) hearing difficulty Neurological: (+) memory impairment, (+) gait instability Psychiatric: (+) irritability, (+) suicidal ideation Physical Exam BP 99/63 Pulse 88 Resp 16 Wt 87.5 kg (192 lb 12.8 oz) SpO2 95% BMI 29.32 kg/m? GENERAL: NAD, alert and oriented SKIN: unremarkable, no rash or skin lesions. HEAD: normocephalic EYES: PERRLA, EOMI, conjunctiva clear LUNGS: Clear to auscultation bilaterally, no wheezes/rhonchi/rales. HEART: Regular rate and rhythm, no murmurs. No ectopy. EXTREMITIES: Normal, No deformities, No skin discoloration, No edema. NEURO: Awake, alert and oriented x3, cranial nerves II-XII grossly intact, normal gait, no involuntary motions Assessment and Plan 1. 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 behavioral disturbance, psychotic disturbance, mood disturbance, or anxiety (HCC) (G30.1) Currently on Donepezil 10 mg daily with stable heart rate and weight. Cognitive function shows slight improvement, but patient exhibits increased irritability. Able to manage most ADLs independently, including bathing and laundry. No longer driving; family reports concerns about safety and reaction time. - Continue Donepezil 10 mg daily. - Discussed the importance of safety and avoiding driving; family to maintain control of car keys. - Encouraged participation in social activities to reduce isolation. - Follow-up in 3 months to reassess cognitive function and behavioral symptoms. 2. Depression, unspecified depression type (F32.A) Currently on Sertraline 50 mg daily. Reports of (more content not included)... [facility] 05-11-2025 History of Presen t illness Narrative Reason for Visit Follow up HPI Keisha Red is a 80-year-old female with a history of cognitive impairment, accompanied by her daughter, presenting for follow-up. Keisha was started on donepezil 10 mg for memory issues during the last visit and has been taking it daily with the assistance of her daughter, who manages her medications using a pill organizer. Keisha reports feeling pretty good and the same as I always did since starting the medication. Her daughter notes a slight improvement in cognitive abilities but mentions that Keisha has become snarkier recently. Keisha acknowledges this change in behavior and expresses a desire to manage it. Keisha also takes sertraline, though the dosage is not specified. She lives independently and manages most of her activities of daily living, including bathing, laundry, and simple cooking, without issues. She enjoys doing laundry and watching TV but reports feeling bored and isolated at times. She has a limited social [place] and relies on her daughters for support, as her brother is less involved in her care. Keisha has a history of falls and is no longer driving, although she expresses a desire to do so. Her family does not feel comfortable with her driving due to safety concerns. She has been using a smartphone for 2-3 weeks but struggles with its functionality, leading her family to consider getting a landline for her. She also reports difficulty hearing her daughter on the phone when she uses a speaker system in her car, but denies any other hearing issues. Social History Tobacco Use Smoking status: Never Smokeless tobacco: Never Vaping Use Vaping status: Never Used Substance Use Topics Alcohol use: No Drug use: Never Past medical history, appointments, medications, allergies reviewed. Pertinent Lab/Diagnostic Studies are reviewed and discussed today Current Outpatient Medications: glimepiride (AMARYL) 2 mg tablet atorvastatin (LIPITOR) 10 mg tablet nitrofurantoin monohydrate and macrocrystal (MACROBID) 100 mg capsule triamcinolone acetonide (KENALOG) 0.1 % cream donepezil (ARICEPT) 10 mg tablet diclofenac (VOLTAREN ARTHRITIS PAIN) 1 % topical gel Magnesium Oxide 250 mg magnesium tab Cholecalciferol, Vitamin D3, 50 mcg (2,000 unit) cap cyanocobalamin (VITAMIN B-12) 1,000 mcg tab gabapentin (NEURONTIN) 300 mg capsule oxyCODONE IR (ROXICODONE) 5 mg immediate release tablet albuterol HFA (PROAIR HFA) 90 mcg/actuation inhaler oxybutynin ER (DITROPAN XL) 10 mg 24 hr tablet warfarin (COUMADIN) 5 mg tablet montelukast (SINGULAIR) 10 mg tablet TENS unit and electrodes cmpk tens unit electrodes (TENS UNITS ELECTRODES) 2X2 pads blood sugar diagnostic (BLOOD GLUCOSE TEST) test strip Lancets lancets sertraline (ZOLOFT) 100 mg tablet fluticasone-vilanterol (BREO ELLIPTA) 100-25 mcg/dose inhaler Health Maintenance Shingrix Vaccine(1 of 2) Pneumococcal Vaccine: 50+(2 of 2 - PCV) DTaP,Tdap,Td Vaccine(2 - Td or Tdap) RSV Vaccine(1 - 1-dose 75+ series) Diabetic Foot Exam Urine Albumin:Creatinine Ratio LDL Cholesterol Advance Directive Discussion Medicare Advantage Annual Wellness Visit Dilated Retinal Exam@ Review Of Systems Ears/Nose/Mouth/Throat: (+) hearing difficulty Neurological: (+) memory impairment, (+) gait instability Psychiatric: (+) irritability, (+) suicidal ideation Physical Exam BP 99/63 Pulse 88 Resp 16 Wt 87.5 kg (192 lb 12.8 oz) SpO2 95% BMI 29.32 kg/m GENERAL: NAD, alert and oriented SKIN: unremarkable, no rash or skin lesions. HEAD: normocephalic EYES: PERRLA, EOMI, conjunctiva clear LUNGS: Clear to auscultation bilaterally, no wheezes/rhonchi/rales. HEART: Regular rate and rhythm, no murmurs. No ectopy. EXTREMITIES: Normal, No deformities, No skin discoloration, No edema. NEURO: Awake, alert and oriented x3, cranial nerves II-XII grossly intact, normal gait, no involuntary motions Assessment and Plan 1. 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 behavioral disturbance, psychotic disturbance, mood disturbance, or anxiety (HCC) (G30.1) Currently on Donepezil 10 mg daily with stable heart rate and weight. Cognitive function shows slight improvement, but patient exhibits increased irritability. Able to manage most ADLs independently, including bathing and laundry. No longer driving; family reports concerns about safety and reaction time. - Continue Donepezil 10 mg daily. - Discussed the importance of safety and avoiding driving; family to maintain control of car keys. - Encouraged participation in social activities to reduce isolation. - Follow-up in 3 months to reassess cognitive function and behavioral symptoms. 2. Depression, unspecified depression type (F32.A) Currently on Sertraline 50 mg daily. Reports of feeling ready to and increased irritability. - Increased Sertraline to 100 mg daily; prescription sent to [facility]. - Monitor for changes in mood and irritability. - Family to provide support and encourage engagement in enjoyable activities. - Follow-up in 4 weeks to assess response to medication adjustment. Voice recognition software was used to compose this office note. Please excuse any unintended typographical errors. Recording using Bellabox software for draft documentation of the visit was discussed with the patient/authorized employment representative; all questions welcomed and answered. Patient/authorized employment representative agreed to proceed Xochitl Castrejon MD documented in this encounter [facility] 05-11-2025 Instructions Xochitl Castrejon MD - 05/11/2025 5:07 PM EDT We discussed your memory and cognitive health: - You are currently taking Aricept (10 mg) daily for memory support. Please continue taking this medication as prescribed. - Your family has noted some slight improvement in your cognitive abilities, but they have also observed increased irritability (snarkiness). To help with this, I have increased your Zoloft dosage to 100 mg daily. This is the same medication you are already taking, but at a higher dose. The updated prescription has been sent to [facility]. Please take this in the evening as part of your nightly medications. - If you notice any side effects or if your mood does not improve, please let us know. We discussed your daily activities and safety: - You are managing most of your daily activities, including bathing, laundry, and taking your medications, with no significant issues. Your family is helping to remind you about your medications, which is working well. - You are no longer driving, which is important for your safety and the safety of others. Your car is not operational, and your family has the keys to ensure it remains unused. If you have concerns about this, we can discuss further options. - Please avoid moving heavy furniture or doing activities that could increase your risk of falling. Your family is concerned about your safety, especially outdoors where the ground may be uneven. We discussed your social activities and emotional well-being: - Your family has encouraged you to participate in social activities, such as bingo or events at the local community center. If you are interested, transportation options like a bus service are available. Please consider trying these activities to stay engaged and active. - If you feel bored or isolated, let your family know so they can help you find ways to stay active and connected. Follow-up: - Continue taking your medications as prescribed, including the increased dose of Zoloft. - Monitor your mood and cognitive abilities. If you or your family notice any changes or concerns, please contact our office. - If you experience any new symptoms or side effects, please let us know. Please reach out if you have any questions or need further assistance. documented in this encounter [facility] 03-13-2025 History of Presen t illness Narrative [...] PATIENT PRESENTS WITH AN IMPLANTABLE OR ATTACHED STREET LIGHT REPAIRER HELPER: No RADIOLOGY DEPARTMENT: General X-ray: Exam(s) Completed: Lower Extremity X-Ray(s): Knee, AP / Lat / Tunne / Merchant Right PERIPHERAL IV DATA: Not applicable SIGNED BY: RT Anahi(R) March 13, 2025 8:57 AM documented in this encounter [facility] 03-13-2025 Note HNO ID: [id number] Author: ELSIE HEAD RT(Coleman) Service: ? Author Type: Rock Picker Type: Progress Notes Filed: 03/13/2025 08:58 Note [...] PATIENT PRESENTS WITH AN IMPLANTABLE OR ATTACHED STREET LIGHT REPAIRER HELPER: No RADIOLOGY DEPARTMENT: General X-ray: Exam(s) Completed: Lower Extremity X-Ray(s): Knee, AP / Lat / Tunne / Merchant Right PERIPHERAL IV DATA: Not applicable SIGNED BY: RT Anahi(R) March 13, 2025 8:57 AM [facility] 03-13-2025 Note HNO ID: [id number] Author: WHITNEY HAMMOND APRN.MANAGER FRONT Service: ? Author Type: Nurse Practitioner Type: [...] She recently had a brain scan in [place]. Her most recent A1c in November was [...] hours as needed for wheezing/shortness of breath. 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 [facility] 03-13-2025 History of Presen t illness [...] She recently had a brain scan in [place]. Her most recent A1c in November was [...] hours as needed for wheezing/shortness of breath. 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 2. Frequent UTI (N39.0) Recurrent UTIs [...] corticosteroid cream. - Sent prescription to [facility]. 4. Rash of neck (R21) Possible lipoma on the back of the neck, previously identified but not concerning. 5. Cognitive impairment (R41.89) Under management by Dr. Castrejon. Recent brain scan performed in [place]. 6. Controlled type 2 diabetes mellitus without [...] pain (M54.50) Chronic condition managed by Dr. Hodgse's office. 11. Encounter for therapeutic drug monitoring (Z51.81) Recording using Bellabox software for draft documentation of the visit was discussed with the patient/authorized employment representative; all questions welcomed and answered. Patient/authorized employment representative agreed to proceed Portions of this [...] medications.. Whitney Hammond APRN-DOMINGO documented in this encounter [facility] 02-22-2025 Telephone encounter Note Dian NOTIFIED OF SAME and voiced her understanding. [facility] 02-22-2025 Miscellaneous Notes Dian NOTIFIED OF SAME [...] review prior to previously scheduled appt. Roopa Edgar, VLAD documented in this encounter [facility] 02-22-2025 Telephone encounter Note PATIENT NOTIFIED OF SAME. [facility] 02-22-2025 Miscellaneous Notes PATIENT NOTIFIED OF SAME. This is what I was able to find for [facility], please let her know: Medical Alert equipment has been purchased by the [facility] as a community service and is available to you for a rental fee of $20 per month for a landline and $25 per month for a wireless line. There is no equipment for you to buy, no installation charge, and no maintenance charge for you to pay. For more information about the [facility] Medical Alert, contact [facility] at [phone]. Pt reports she would like to get a medical alert necklace- where she can push a button for help. A company she spoke to told her it would cost $44.97 a month. Pt asking if pcp can prescribe this and if there are places where she can get one for free? Reports someone she knows got one from [facility] for free. Please phone pt with reply. documented in this encounter [facility] 02-22-2025 Telephone encounter Note It would be ideal to discuss the options with her visit, we could consider use of the Macrobid as preventative. [facility] 02-22-2025 Telephone encounter Note This is what I was able to find for [facility], please let her know: Medical Alert equipment has been purchased by the [facility] as a community service and is available to you for a rental fee of $20 per month for a landline and $25 per month for a wireless line. There is no equipment for you to buy, no installation charge, and no maintenance charge for you to pay. For more information about the [facility] Medical Alert, contact [facility] at [phone]. [facility] 02-22-2025 Telephone encounter Note Pt reports she would like to get a medical alert necklace- where she can push a button for help. A company she spoke to told her it would cost $44.97 a month. Pt asking if pcp can prescribe this and if there are places where she can get one for free? Reports someone she knows got one from [facility] for free. Please phone pt with reply. [facility] 02-22-2025 Telephone encounter Note Daughter (Dian) calls to ask about prescribing patient Macrobid on Thursday, Thursday ,Thursday for chronic UTI's. Recommended appt. Dian reports that patient was to [facility] and they recommended to reach out to PCP to request. Patient scheduled to see Whitney Hammond on 03/10/2025 and asking provider to review prior to previously scheduled appt. Roopa Edgar RN [facility] 02-09-2025 Instructions Xochitl Castrejon MD - 02/09/2025 [...] You remain independent and are managing your rn new grad, which is excellent for staying active. - [...] office. documented in this encounter [facility] 02-09-2025 Note HNO ID: [id number] Author: XOCHITL CASTREJON MD Service: ? Author [...] in her activities of daily living, including rn new grad. However, she has experienced multiple falls recently. [...] observed. Patient remains independent in ADLs, including rn new grad. Recent fall reported, resulting in minor injuries [...] 248 mg/dL. I (more content not included)... [facility] 02-09-2025 History of Presen t illness [...] in her activities of daily living, including rn new grad. However, she has experienced multiple falls recently. [...] observed. Patient remains independent in ADLs, including rn new grad. Recent fall reported, resulting in minor injuries [...] excuse any unintended typographical errors. Recording using ambient AI software for draft documentation of the visit was discussed with the patient/authorized employment representative; all questions welcomed and answered. Patient/authorized employment representative agreed to proceed Xochitl Castrejon MD documented in this encounter [facility] 02-09-2025 Miscellaneous Notes Patient daughter Dian notified of results, verbalized understanding and noted that patient has f/u appt with Dr Castrejon today and will plan to discuss residential antibiotic therapy for chronic UTI issues. Alejandra Stevens MA Please call and let patient know only normal bacteria grew in the culture. 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 Alejandra Stevens MA [facility] 02-09-2025 Telephone encounter Note Please call and let patient know only normal bacteria grew in the culture. If symptoms persist follow-up with primary care [facility] Work Phone: 02-07-2025 Note HNO ID: [id number] Author: CLARISSE JOYCE APRN.MANAGER FRONT Service: ? Author Type: Nurse Practitioner Type: [...] history is provided by the patient. No office chair assembler was used. UTI This is a new [...] Right shoulder s/p fall with reduction at [facility] Type II or unspecified type diabetes [...] hours as needed for wheezing/shortness of breath. 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 [facility] 02-07-2025 History of Presen t illness [...] history is provided by the patient. No office chair assembler was used. UTI This is a new [...] Right shoulder s/p fall with reduction at [facility] Type II or unspecified type diabetes [...] hours as needed for wheezing/shortness of breath. 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 Differential Diagnoses - cystitis Contributing Factors Chronic conditions affecting care: diabetes and hypertension Disposition The patient was discharged. Procedures documented in this encounter [facility] 01-08-2025 Telephone encounter Note TC to patient who verbalized understanding of providers message below. CLAUDIA Rutledge [facility] 01-08-2025 Miscellaneous Notes TC to patient who verbalized understanding of providers message below. CLAUDIA Rutledge Please contact patient let her know she is on the appropriate antibiotic therapy for UTI. Please continue as prescribed documented in this encounter [facility] 01-08-2025 Telephone encounter Note Please contact patient let her know she is on the appropriate antibiotic therapy for UTI. Please continue as prescribed [facility] 01-05-2025 Note HNO ID: [id number] Author: ANTONINO CRANDALL PA Service: ? Author Type: Physician Husbandry Person Type: Progress Notes Filed: 01/05/2025 10:39 [...] Right shoulder s/p fall with reduction at [facility] Type II or unspecified type diabetes [...] hours as needed for wheezing/shortness of breath. 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 Psychiatric/Beha (more content not included)... [facility] 01-05-2025 History of Presen t illness [...] Right shoulder s/p fall with reduction at [facility] Type II or unspecified type diabetes [...] hours as needed for wheezing/shortness of breath. 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 Joon Lopez MD Status: RE G ER Study:Humerus min 2 Views Date of Exam: 01/04/25 Exam# [id number] Ordering Dr: Manuel Sanchez MD PROCEDURE: HUMERUS MIN 2 VIEWS REASON FOR EXAM: PAIN, TRAUMA TECHNIQUE: Two views of the left humerus COMPARISON: None. FINDINGS: See impression RAD/Humerus min 2 Views IMPRESSION: Negative for acute fracture or dislocation. Mild glenohumeral and elbow osteoarthritis. [facility] CC: Dr. Manuel Sanchez MD; Dr. Joon Lopez MD ~ Save All Operator: Signed [facility] 01-04-2025 Radiology Diagnostic study note [facility] Imaging Services [address], [place] [id number] Shoulder min 2 Views MR#: [id number] Acct: [id number] Name: KEISHA RED Rep #: [id number] : 1945 From: Filiberto Vo DO PCP: Dr. Joon Lopez MD Status: MA E ER Study:Shoulder min 2 Views Date of Exam: 01/04/25 Exam# [id number] Ordering Dr: Provider ,Ed P. PROCEDURE: Left shoulder radiographs REASON FOR EXAM: PAIN TECHNIQUE: Four views of the left shoulder COMPARISON: 08/20/2024 FINDINGS: See impression RAD/Shoulder min 2 Views IMPRESSION: Negative for acute fracture or dislocation. Mild glenohumeral and acromioclavicular joint osteoarthritis. Reading Location: [facility] CC: Dr. Joon Lopez MD; ED PHYSICIAN PROVIDER ~ Save All Operator: Signed [facility] 01-04-2025 Discharge summary Note Date/Time January 04, 2025 7:43pm [facility] Medical Records Department [address] [place] [address] Emergency Department Summary 01/04/25 MR#: [id number] Acct: [id number] Name: KEISHA RED Rep #:[id number] : 1945 79 From: Manuel Sanchez MD PCP: Dr. Joon Lopez MD Status:RE G ER Location: ED HPI History of Present Illness Chief Complaint: Upper Extremity Injury Narrative Narrative: 79-year-old female, [id number], presents with her daughter because of injury [...] injury to her left shoulder and humerus. 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 Reading Location: [facility] Discharge Plan Triage Chief Complaint: Upper Extremity [...] 2 mg PO BID (DME) blood-glucose meter [[employer] Verio Flex meter] Misc See Rx Instructions [...] arthritis in your left shoulder. Print Language: Emirati Disposition Disposition: Home, Self Care What to do if you have Problems For any increased pain, shortness of breath, bleeding, nausea or vomiting, chestpain, or any unexpected problems, contact your Primary Care Provider. Call [facility] ([phone]) or report to the closest Emergency Room. Call 911 if necessary. 01/04/251942 <Electronically signed by Manuel Sanchez MD> Cosigner Signature (if applicable): CC: Dr. Joon Lopez MD ~ Signed [facility] Work Phone: 1(828) 412-979603-12-2025 Telephone encounter Note* Telephone Encounter - Ira [...] January 04, 2025 12:59 PM [facility]03-12-2025 Miscellaneous Notes* Telephone Encounter - Ira Chicas [...] 12:59 PM documented in this encounter[facility] [place] Telephone encounter Note * Telephone Encounter - [...] with breakfast. Ira Peralta RN [facility]03-04-2025 Miscellaneous Notes* Telephone Encounter - Ira Peralta [...] Peralta RN documented in this encounterSelect [facility] [place] Evaluation note* Diagnosis Onset Date Resolution Status Admit Date Asthma chronic December 09, 2024 7:50am RAMESH (obstructive sleep apnea) chronic December 09, 2 025 7:50am [facility] Work Phone: 1(740) 826-415002-12-2025 Instructions* Patient Instructions* Joon Lopez MD - [...] of bedtime. documented in this encounterSelect [facility] [place]25 NoteHNO ID: [id number] Author: JOON LOPEZ MD Service: ? Author Type: Physician Type: Progress Notes Filed: 12/07/2024 11:29 Note Text: This note was created using [employer]. Subjective Keisha Red is a 79 year [...] recently tried going to bed later, around 8880-6478, and notes some improvement in sleep quality. [...] Right shoulder s/p fall with reduction at [facility] Type II or unspecified type diabetes [...] hours as needed for wheezing/shortness of breath. 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 Musculoskeletal: Right lowe (more content not included)...[facility]02-12-2025 History of Present illness Narrative* Joon Lopez MD - 12/07/2024 11:07 AM EST This note was created using [employer]. Subjective Keisha Red is a 79 year [...] recently tried going to bed later, around 5127-0825, and notes some improvement in sleep quality. [...] Right shoulder s/p fall with reduction at [facility] Type II or unspecified type diabetes [...] hours as needed for wheezing/shortness of breath. 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 - Continue topical NSAID application as needed for pain control. # Hypomagnesemia (E83.42) - Taking magnesium supplement; instructed to take at bedtime. - Prescription for magnesium sent to [facility]. # Vitamin D deficiency (E55.9) - Ordered [...] Lopez MD documented in this encounterSelect [facility] [place] Telephone encounter Note * Telephone Encounter - Jhoana Pedersen LPN - 11/25/2024 1:14 PM EST Spoke with pt gave information provided. Pt voices understanding. [facility]01-31-2025 Miscellaneous Notes* Telephone Encounter - Jhoana Pedersen [...] 12:04 PM documented in this encounterSelect [facility] [place]-[place] Telephone encounter Note * Telephone Encounter - [...] Authorizing Provider: JOON LOPEZ MD [facility] [place]01-31-2025 Telephone encounter Note* Telephone Encounter - Carolina [...] Kuo LPN November 25, 2024 12:04 PM [facility]01-16-2025 Instructions* Patient Instructions* Xochitl Castrejon MD - [...] stop the medication and contact us at [phone]. documented in this encounterSelect Medical [facility] [place]-2025 NoteHNO ID: [id number] Author: XOCHITL CASTREJON MD Service: ? Author Type: Physician Type: Progress Notes Filed: 11/10/2024 13:13 Note Text: [facility] Initial Consult Keisha [...] used to do the big turkey at [facility] where the turkey was spoiled and she [...] hours as needed for wheezing/shortness of breath. 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 Yes, Authorizing Provider Whitney Hammond APRN.MANAGER FRONT Medication diclofenac (VOLTAREN ARTHRITIS PAIN) 1 % topical gel, Sig Apply 2 g to affected area four times daily. Takes as needed, Start Date (more content not included)...[facility]01-16-2025 History of Present illness Narrative* Xochitl Castrejon MD - 11/10/2024 11:42 AM EST [facility] Initial Consult Keisha [...] used to do the big turkey at [facility] where the turkey was spoiled and she [...] Date , Taking? Yes, Authorizing Provider Provider, Nicolas Medication albuterol HFA (PROAIR HFA) 90 mcg/actuation inhaler, Sig Inhale 2 Puffs as instructed every 4 hours as needed for wheezing/shortness of breath. 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 Yes, Authorizing Provider Whitney Hammond APRN.MANAGER FRONT Medication diclofenac (VOLTAREN ARTHRITIS PAIN) 1 % [...] , Taking? Yes, Authorizing Provider Whitney Hammond APRN.MANAGER FRONT Medication cyanocobalamin (VITAMIN B-12) 1,000 mcg tab, Sig Take 1 tablet by mouth once daily., Start Date 04/06/24, End Date , Taking? Yes, Authorizing Provider Whitney Hammond APRN.MANAGER FRONT Medication atorvastatin (LIPITOR) 10 mg tablet, Sig Take 1 tablet by mouth once daily., Start Date 03/22/24, End Date , Taking? Yes, Authorizing Provider Whitney Hammond APRN.MANAGER FRONT Medication blood sugar diagnostic (BLOOD GLUCOSE TEST) [...] , Taking? , Authorizing Provider Whitney Hammond APRN.MANAGER FRONT Medication gabapentin (NEURONTIN) 300 mg capsule, Sig Take 2 capsules by mouth daily at bedtime AND1 capsule every morning. Do all this for 180 days., Start Date 03/22/24, End Date 12/16/24, Taking? ,Authorizing Provider Whitney Hammond APRN.MANAGER FRONT Medication glimepiride (AMARYL) 2 mg tablet, Sig Take 1 tablet by mouth two times a day with meals., Start Date 03/22/24, End Date , Taking? , Authorizing Provider Whitney Hammond APRN.MANAGER FRONT Medication TENS unit and electrodes cmpk, Sig 1 Each once daily., Start Date 09/10/23, End Date , Taking? , Authorizing Provider Trini Tang APRN.PACKAGING OPERATOR Medication tens unit electrodes (TENS UNITS ELECTRODES) 2X2 pads, Sig Change pad every month as indicated, Start Date 09/10/23, End Date , Taking? , Authorizing Provider Trini Tang APRN.PACKAGING OPERATOR Medication triamcinolone acetonide (KENALOG) 0.1 % cream, [...] but does not need glasses Follows with rock singer:YES Hearing - Hearing aid : Hearing impairment, [...] 06/09 No Data Recorded Labs: Reviewed in [facility], remarkable for tsh being normal at 1.4 [...] physical exercise and socialization Xochitl Castrejon MD [facility] documented in this encounterSelect [facility] [place]-08-2025 Telephone encounter Note * Telephone Encounter - Miguelina Parson RN - 11/02/2024 1:05 PM EST LM on daughter Dian's personal voicemail that prescription has been sent in. [facility]01-08-2025 Miscellaneous Notes* Telephone Encounter - Miguelina Parson RN - 11/02/2024 1:05 PM EST LM on daughter Dian's personal voicemail that prescription has been sent [...] Andreina Doran. documented in this encounterSelect [facility] [place]25 Telephone encounter Note * Telephone Encounter - Joon Lopez MD - 11/02/2024 12:59 PM EST The following approved medication requests have been transmitted electronically. Requested Prescriptions Pending Prescriptions Disp Refills gabapentin (NEURONTIN) 300 mg capsule 270 capsule 1 Sig: Take 2 capsules by mouth daily at bedtime AND 1 capsule every morning. Do all this for 180 days. Joon Lopez MD [facility]01-08-2025 Telephone encounter Note* Telephone Encounter - Bouchra Sneed - 11/02/2024 11:14 AM EST Patient's daughter Dian calling to check the status of medication gabapentin. [facility]01-06-2025 Telephone encounter Note* Telephone Encounter - Andreina [...] advise. Thank you. Andreina Doran. [facility]12-06-2024 Telephone encounter Note* Telephone Encounter - Patricia De La Paz LPN - 09/30/2024 9:38 AM EST Called and spoke to Keisha's daughter Dian, updated, will discuss medication. Patricia De La Paz LPN September 30, 2024 9:42 AM [facility]12-06-2024 Miscellaneous Notes* Telephone Encounter - Patricia De La Paz LPN - 09/30/2024 9:38 AM EST Called and spoke to Edmundos daughter Dian, john, will discuss medication. Patricia De La Paz [...] Jose MD documented in this encounterSelect [facility] [place]-2024 Telephone encounter Note * Telephone Encounter - Patricia De La Paz LPN - 09/30/2024 9:21 AM EST ----- Message from Xochitl Castrejon MD sent at 09/29/2024 5:22 PM EST ----- Likely has Alzheimer's dementia, would benefit from being on Aricept medication. Will discuss this and your coming visit in October. Xochitl Jose MD [facility] [place]12-04-2024 NoteHNO ID: [id number] Author: EVERT BROOKS RN Service: ? Author [...] [facility]* Evert Brooks RN - [...] Brooks RN September 28, 2024 10:38 AM [facility]12-04-2024 Procedure note* Evert Brooks RN - 09/28/2024 [...] 10:38 AM documented in this encounterSelect [facility] [place]24 Telephone encounter Note * Telephone Encounter - Jamari Maki MA - 09/19/2024 1:17 PM EST Patient has been rescheduled. Jamari Maki MA [facility] [place]11-25-2024 Miscellaneous Notes* Telephone Encounter - Jamari Maki [...] Maki MA documented in this encounterSelect [facility] [place]24 Telephone encounter Note * Telephone Encounter - Jamari Maki MA - 09/13/2024 10:38 AM EST Patient schedule for MRI follow up on 09/21/24 but does not have MRI until September. Patient r/s to next available after testing, 10/27/24. PSS attempted to contact patient, no answer and VM full. Will try again. Jamari Maki MA [facility] [place]11-15-2024 NoteHNO ID: [id number] Author: WHITNEY HAMMOND APRN.MANAGER FRONT Service: ? Author Type: Nurse Practitioner Type: [...] hours as needed for wheezing/shortness of breath. 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 OBJECTIVE BP 98 (more content not included)...[facility]11-15-2024 History of Present illness Narrative* Whitney Hammond APRN.MANAGER FRONT - 09/09/2024 12:04 PM EST SUBJECTIVE Keisha [...] hours as needed for wheezing/shortness of breath. 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 Agudleo Muscle Spasm Rotator Cuff Tear - 05/06/2011 [...] Hammond APRN-DOMINGO documented in this encounterSelect [facility] [place]-14-2024 NoteHNO ID: [id number] Author: MARGARET WILDE APRN.CNP Service: ? Author Type: Nurse Practitioner [...] Palpitations Pulmonary hypertension (HCC) 05/03/2023 Shoulder dislocation 2/11/12 Right shoulder s/p fall with reduction at [facility] Type II or unspecified type diabetes [...] hours as needed for wheezing/shortness of breath. 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 [facility]11-14-2024 History of Present illness Narrative* Margaret Wilde APRN.MANAGER FRONT - 09/08/2024 2:21 PM EST CC: Patient [...] Right shoulder s/p fall with reduction at [facility] Type II or unspecified type diabetes [...] hours as needed for wheezing/shortness of breath. 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 Margaret Wilde APRN.DOMINGO documented in this encounterSelect Medical [facility] [place]-23-2024 NoteHNO ID: [id number] Author: SANDRA PAYTON PA-C Service: ? Author Type: Physician Husbandry Person Type: Progress Notes Filed: 08/17/2024 12:25 Note Text: This note was created using [employer] Subjective Keisha Red is a 79 year [...] excellent understanding of same. CLINICAL IMPRESSION: [facility] History of Present illness Narrative* Kayode EUSEBIO Hwang - 08/17/2024 12:18 PM EDT This note was created using [employer] Subjective Keisha Red is a 79 year [...] Acute UTI documented in this encounterSelect [facility] [place]24 Telephone encounter Note * Telephone Encounter - Jamari Maki MA - 08/03/2024 1:47 PM EDT Vitamin b12 ordered by Dr. Castrejon and patient had drawn at [facility]. View External Labs - Vit B12,INR, [ID [id number]] Please review and advise. Jamari Maki MA [facility] [place]10-09-2024 Miscellaneous Notes* Telephone Encounter - Jamari Maki MA - 08/03/2024 1:47 PM EDT Vitamin b12 ordered by Dr. Castrejon and patient had drawn at [facility]. View External Labs - Vit B12,INR, [ID [id number]] Please review and advise. Jamari Maki MA documented in this encounterSelect [facility] [place]-2024 Telephone encounter Note * Telephone Encounter - Jamari Maki MA - 08/03/2024 1:27 PM EDT Noted. Thank you! Jamari Maki MA [facility]10-09-2024 Miscellaneous Notes* Telephone Encounter - Jamari Maki [...] to Dian to inform that neither or [facility] do the type of MRI that was ordered. Informed Dian that I will have a collection systems worker call her to get testing scheduled. Pacemaker card printed from [facility] [employer]. Sent to scanning. Sheridan, can you please call this patient's daughter Dian to schedule the MRI? Jamari Maki MA * Telephone Encounter - Roopa Edgar RN - 08/03/2024 11:09 AM EDT Daughter (Dian) calls to let provider know that she has [facility] [place] [facility] and she could have it done at the [place] location. Prior Auth is pending. Roopa Edgar RN documented in this encounterSelect [facility] [place]-2024 Telephone encounter Note * Telephone Encounter - Sheridan Humphries - 08/03/2024 12:44 PM EDT I have placed the appropriate message to the Pacemaker/MRI safety team via phone encounter to the pool. [facility]10-09-2024 Telephone encounter Note* Telephone Encounter - Sheridan [...] , it is OK to leave message [phone] (home) [phone] (cell) Payor: [employer] MEDICARE / Plan: [facility] HMO / Product Type: HMO / Sheridan Kristel [facility]10-09-2024 Miscellaneous Notes* Telephone Encounter - Sheridan Humphries [...] , it is OK to leave message [phone] (home) [phone] (cell) Payor: [employer] PLAN MEDICARE / Plan: [facility] HMO / Product Type: HMO / Sheridan Humphries documented in this encounterSelect [facility] [place] Telephone encounter Note * Telephone Encounter - Jamari Maki MA - 08/03/2024 11:47 AM EDT Phone call to Dian to inform that neither or [facility] do the type of MRI that was ordered. Informed Dian that I will have a collection systems worker call her to get testing scheduled. Pacemaker card printed from [facility] [employer]. Sent to scanning. Sheridan, can you please call this patient's daughter Dian to schedule the MRI? Jamari Maki MA [facility]10-09-2024 Telephone encounter Note* Telephone Encounter - Roopa Edgar RN - 08/03/2024 11:09 AM EDT Daughter (Dian) calls to let provider know that [facility] and she could have it done at the [place] location. Prior Auth is pending. Roopa Edgar RN [facility]10-09-2024 NoteHNO ID: [id number] Author: XOCHITL CASTREJON MD Service: ? Author Type: Physician Type: Progress Notes Filed: 09/29/2024 17:21 Note Text: [facility] Initial Consult Keisha [...] a secure location? Social History: Primary language: Emirati Marital Status: Living situation: Home Alone, since 2010 when her Socially engaged? (participates in activities such as clubs, zoroastrian, community center, sports, games, visiting friends/relatives, etc?): NO She used to go out with friends and family, a few times a month. She used to have a group of 4 friends who used to go out but she has not done that for the past 7 months. Caregiver Jackson and Stress Are your feeling overwhelmed? NO Do you have concerns about your own health? NO Are you neglecting your o (more content not included)...[facility]10-09-2024 History of Present illness Narrative* Xochitl Castrejon MD - 08/03/2024 7:50 AM EDT [facility] Initial Consult Keisha [...] a secure location? Social History: Primary language: Emirati Marital Status: Living situation: Home Alone, since 2010 when her Socially engaged? (participates in activities such as clubs, zoroastrian, community center, sports, games, visiting friends/relatives, etc?): NO She used to go out with friends and family, a few times a month. She used to have a group of 4 friends who used to go out but she has not done that for the past 7 months. Caregiver Jackson and Stress Are your feeling overwhelmed? NO [...] used to do the big turkey at [facility] where the turkey was spoiled and she [...] Right shoulder s/p fall with reduction at [facility] Type II or unspecified type diabetes [...] hours as needed for wheezing/shortness of breath. 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 Yes, Authorizing Provider Whitney Hammond APRN.MANAGER FRONT Medication diclofenac (VOLTAREN ARTHRITIS PAIN) 1 % [...] , Taking? Yes, Authorizing Provider Whitney Hammond APRN.MANAGER FRONT Medication cyanocobalamin (VITAMIN B-12) 1,000 mcg tab, Sig Take 1 tablet by mouth once daily., Start Date 04/06/24, End Date , Taking? Yes, Authorizing Provider Whitney Hammond APRN.MANAGER FRONT Medication atorvastatin (LIPITOR) 10 mg tablet, Sig Take 1 tablet by mouth once daily., Start Date 03/22/24, End Date , Taking? Yes, Authorizing Provider Whitney Hammond APRN.MANAGER FRONT Medication blood sugar diagnostic (BLOOD GLUCOSE TEST) [...] , Taking? , Authorizing Provider Whitney Hammond APRN.MANAGER FRONT Medication gabapentin (NEURONTIN) 300 mg capsule, Sig Take 2 capsules by mouth daily at bedtime AND1 capsule every morning. Do all this for 180 days., Start Date 03/22/24, End Date 12/16/24, Taking? ,Authorizing Provider Whitney Hammond APRN.MANAGER FRONT Medication glimepiride (AMARYL) 2 mg tablet, Sig Take 1 tablet by mouth two times a day with meals., Start Date 03/22/24, End Date , Taking? , Authorizing Provider Whitney Hammond APRN.MANAGER FRONT Medication TENS unit and electrodes cmpk, Sig 1 Each once daily., Start Date 09/10/23, End Date , Taking? , Authorizing Provider Trini Tang APRN.PACKAGING OPERATOR Medication tens unit electrodes (TENS UNITS ELECTRODES) 2X2 pads, Sig Change pad every month as indicated, Start Date 09/10/23, End Date , Taking? , Authorizing Provider Trini Tang APRN.PACKAGING OPERATOR Medication triamcinolone acetonide (KENALOG) 0.1 % cream, [...] but does not need glasses Follows with rock singer:YES Hearing - Hearing aid : Hearing impairment, [...] 6) Medications: No Level: Depression Screening/Evaluation: GDS: 8/15 No Data Recorded Labs: Reviewed in Epic, remarkable for tsh being normal at 1.4 [...] the family to reach out to the bindery machine setter to know if this particular type of pacemaker is okay with an MRI. She will also reach out to her bindery machine setter who monitors her INR because Zoloft is [...] physical exercise and socialization Xochitl Castrejon MD [facility] documented in this encounterSelect [facility] [place] Telephone encounter Note * Telephone Encounter - Joon Lopez MD - 07/09/2024 1:57 PM EDT Noted [facility]09-14-2024 Miscellaneous Notes* Telephone Encounter - Joon Lopez MD - 07/09/2024 1:57 PM EDT Noted * Telephone Encounter - Liza Santana LPN - 07/06/2024 10:54 AM EDT FYI Calling to report, Chris went out to [place] Patient from , she reported a fall that took place yesterday. Walking out of hallway slipped dog urine. She was able to get up on her own, no injury. Liza Santana LPN documented in this encounterSelect [facility] [place] Telephone encounter Note * Telephone Encounter - Liza Santana LPN - 07/06/2024 10:54 AM EDT FYI Calling to report, Chris went out to [place] Patient from , she reported a fall that took place yesterday. Walking out of hallway slipped dog urine. She was able to get up on her own, no injury. Liza Santana LPN [facility]09-11-2024 Telephone encounter Note* Telephone Encounter - Whitney Hammond APRN.DOMINGO - 07/06/2024 10:50 AM EDT PDM website checked and validated. All prescriptions have been APPROPRIATELY filled. No suspiciousactivity was identified. 07/06/2024 by Whitney Hammond APRN.CNP [facility] [place]09-11-2024 Miscellaneous Notes* Telephone Encounter - Whitney Hammond APRN.CNP - 07/06/2024 10:50 AM EDT [facility] website checked and validated. All prescriptions have been APPROPRIATELY filled. No suspiciousactivity was identified. 07/06/2024 by Whitney Hammond APRN.CNP * Telephone Encounter - Carolina Kuo LPN [...] not on current med list. Uses [facility] [place]. documented in this encounterSelect [facility] [place] Telephone encounter Note * Telephone Encounter - [...] July 05, 2024 1:42 PM [facility]09-10-2024 Telephone encounter Note* Telephone Encounter - Ramila Guerrero - 07/05/2024 1:18 PM EDT Patient called to refill her oxycodone rx; not on current med list. Uses [facility] [place]. [facility]09-04-2024 Telephone encounter Note* Telephone Encounter - Sylwia Vasquez LPN - 06/29/2024 4:10 PM EDT Order faxed to the number listed for the [facility] p[facility]AN. Sylwia Vasquez LPN [facility]09-04-2024 Miscellaneous Notes* Telephone Encounter - Sylwia Vasquez LPN - 06/29/2024 4:10 PM EDT Order faxed to the number listed for the [facility]AN. Sylwia Vasquez LPN * Telephone Encounter - Joon Lopez [...] reports pt cannot afford Symbicort and the [employer] does not have a patient assistance program. Mary Jo reports the [employer] for Breo does have an assistance program and is asking if pcp wouldprescribe pt Breo inhaler instead. If so Mary Jo is requesting rx be faxed to [phone] Attn: Mary Jo. Any Peacock LPN documented in this encounterSelect [facility] [place] Telephone encounter Note * Telephone Encounter - Joon Lopez MD - 06/29/2024 1:16 PM EDT Patient's request for medication is as follows: Requested Prescriptions Signed Prescriptions Disp Refills fluticasone-vilanterol (BREO ELLIPTA) 100-25 mcg/dose inhaler 180 Each 3 Sig: Inhale 1 Inhalation as instructed once daily. Authorizing Provider: JOON LOPEZ Prescription(s) printed as above. Please process accordingly. [facility] [place]-03-2024 Telephone encounter Note* Telephone Encounter - Any Peacock LPN - 06/28/2024 2:51 PM EDT Mary Jo with [facility] [employer] is calling in regards to rx for Symbicort 160-4.5 mg inhaler. Mary Jo reports pt cannot afford Symbicort and the [employer] does not have a patient assistance program. Mary Jo reports the [employer] for Breo does have an assistance program and is asking if pcp wouldprescribe pt Breo inhaler instead. If so Mary Jo is requesting rx be faxed to [phone] Attn: Stacie. Any Peacock LPN [facility] [place]08-28-2024 Instructions* Patient Instructions* Joon Lopez MD - 06/22/2024 10:56 AM EDT -Discontinue Flexeril to reduce confusion - Discontinue Tylenol to avoid interaction with Coumadin - Stay hydrated by drinking at least 8 cups of fluid per day, including water, juice, and other non-caffeinated beverages - Continue taking your regular medications, including gabapentin (2 at bedtime, 1 every morning) - Use lidocaine patches (4% [id number]) for pain relief, applying for 12 hours [...] this procedure. documented in this encounterSelect Medical [facility] [place]-28-[place]24 NoteHNO ID: [id number] Author: JOON LOPEZ MD Service: ? Author Type: Physician Type: Progress Notes Filed: 06/22/2024 11:00 Note Text: This note was created using [employer]. Subjective Keisha Red is a 79 year [...] a recent hospitalization. Patient was admitted to [facility] on the for confusion and was [...] Right shoulder s/p fall with reduction at [facility] No date: Type II or unspecified type diabetes mellitus without mention of complication, not stated as uncontrolled No date: Unspecified asthma(493.90) No date: Unspecified essential hypertension Current Outpatient Medications Medication Sig albuterol HFA (PROAIR HFA) 90 mcg/actuation inhaler Inhale 2 Puffs as instructed every 4 hours as needed for wheezing/shortness of breath. 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 ([facility] pulmonology) blood sugar diagnostic (BLOOD GLUCOSE [...] is warm and dry (more content not included)...[facility]08-28-2024 History of Present illness Narrative* Joon Lopez MD - 06/22/2024 10:21 AM EDT This note was created using [employer] Subjective Keisha Red is a 79 year [...] a recent hospitalization. Patient was admitted to [facility] on the for confusion and was [...] No date: Palpitations 05/03/2023: Pulmonary hypertension (HCC) 2/11/12: Shoulder dislocation Comment: Right shoulder s/p fall with reduction at [facility] No date: Type II or unspecified type diabetes mellitus without mention of complication, not stated as uncontrolled No date: Unspecified asthma(493.90) No date: Unspecified essential hypertension Current Outpatient Medications Medication Sig albuterol HFA (PROAIR HFA) 90 mcg/actuation inhaler Inhale 2 Puffs as instructed every 4 hours as needed for wheezing/shortness of breath. 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 ([facility] pulmonology) blood sugar diagnostic (BLOOD GLUCOSE [...] the date of the service which included [id number] patient care, completing clinical documentation, obtaining and/or reviewing separately obtained history, performing a medically appropriate examination, counseling and educating the patient/family/caregiver, ordering medications, tests, or procedures, independently interpreting results (not separately reported), and communicating results to the patient/family/caregiver. Joon Lopez MD documented in this encounterSelect Medical [facility] [place]-[facility] Telephone encounter Note * Telephone Encounter - Trini Tang APRN.CNS - 06/21/2024 4:09 PM EDT Noted. Okay for home health care. [facility] [place]08-27-2024 Miscellaneous Notes* Telephone Encounter - Trini Tang APRN.CNS - 06/21/2024 4:09 PM EDT Noted. Okay for home health care. * Telephone Encounter - Maddie Rojo LPN - 06/21/2024 3:28 PM EDT Soren with [facility], nursing called to report he did a resumption of pt and will be seeing pt startingnext week. will see 1 time a week for 2 weeks. Dx: disease management education. [facility] took pt off the Flexeril because they thought this may be contributing to her confusion. No call back needed. Maddie Rojo LPN documented in this encounterSelect Medical [facility] [place]-27-2024 Telephone encounter Note * Telephone Encounter - Maddie Rojo LPN - 06/21/2024 3:28 PM EDT Soren with [facility], nursing called to report he did a resumption of pt and will be seeing pt startingnext week. will see 1 time a week for 2 weeks. Dx: disease management education. [facility] took pt off the Flexeril because they thought this may be contributing to her confusion. No call back needed. Maddie Rojo LPN [facility] [place]08-26-2024 Telephone encounter Note* Telephone Encounter - Guerline Davila LPN - 06/20/2024 4:11 PM EDT So noted. Scheduled adjusted [facility] [place]08-26-2024 Miscellaneous Notes* Telephone Encounter - Guerline Davila LPN - 06/20/2024 4:11 PM EDT So noted. Scheduled adjusted * Telephone Encounter - Ira Chicas - 06/20/2024 1:46 PM EDT Patient called to confirm appointment for 06/22 and then mention that she was discharged from [facility] onSunday 06/19 for dehydration. documented in this encounterSelect Medical [facility] [place]-[facility]24 Telephone encounter Note * Telephone Encounter - Ira Chicas - 06/20/2024 1:46 PM EDT Patient called to confirm appointment for 06/22 and then mention that she was discharged from [facility] onSunday 06/19 for dehydration. [facility] [place]08-24-2024 [facility]08-16-2024 Telephone encounter Note* Telephone Encounter - Nya De Oliveira RN - 06/10/2024 1:22 PM EDT Pts daughter called and is notified of providers message and instructions. She voices understanding, and states she will move the Percocet to her house so she can't get into it. She said hopefully wecan get her INR under control. Nya De Oliveira RN [facility] [place]08-16-2024 Miscellaneous Notes* Telephone Encounter - Nya De [...] to send rx for the oxycodone to [facility] [place]. * Telephone Encounter - Carolina Kuo LPN [...] eating normally. * Telephone Encounter - Yuko Rogers RN - 06/10/2024 8:53 AM EDT Patient's [...] work number. Please review and advise, Yuko Rogers RN documented in this encounterSelect Medical [facility] [place]-16-2024 Telephone encounter Note * Telephone Encounter - [...] Authorizing Provider: JOON LOPEZ MD [facility] [place]08-16-2024 Telephone encounter Note* Telephone Encounter - Hilaria Avina RN - 06/10/2024 11:47 AM EDT Daughter, Brooke, returned call and given provider's message below. Brooke reports patient is eating normally, they are making sure of that. Reports patient will be off of coumadin this weekend per Dr. Emerson. Brooke would like pcp to send rx for the oxycodone to [facility]. [facility] [place]08-16-2024 Telephone encounter Note* Telephone Encounter - Carolina Kuo LPN - 06/10/2024 11:40 AM EDT LEFT MESSAGE FOR PATIENT's daughter TO CALL OFFICE. [facility] [place]08-16-2024 Telephone encounter Note* Telephone Encounter - Joon [...] See if patient eating normally. [facility] [place]08-16-2024 Telephone encounter Note* Telephone Encounter - Yuko Rogers RN - 06/10/2024 8:53 AM EDT Patient's daughter Brooke calls and states that [facility]'s INR has been high. Today's INR 5.2 which is managed by [facility]. Brooke concerned with the amount [...] work number. Please review and advise, Yuko Rogers RN [facility] [place]08-15-2024 Telephone encounter Note* Telephone Encounter - Joon [...] encounter when Soren calls back [facility] [place]08-15-2024 Miscellaneous Notes* Telephone Encounter - Joon Lopez [...] calls back * Telephone Encounter - Guerline DavilaBOONE - 06/09/2024 9:49 AM EDT Spoke with Soren with [facility] Soren states that he believes [...] causing her INR to go up so bindery machine setter want her to titrate this down. Methocarbamo [...] - 06/08/2024 9:32 AM EDT Soren with [facility] calls to let provider know that patient [...] Edgar, RN documented in this encounterSelect Medical [facility] [place]08-15-2024 Telephone encounter Note * Telephone Encounter - Guerline Davila LPN - 06/09/2024 9:49 AM EDT Spoke with Soren with [facility] Soren states that he believes she only [...] causing her INR to go up so bindery machine setter want her to titrate this down. Methocarbamo was on hand but not on list so he has asked daughter to put this away for now. Patient has tens on and medication seems to be helping so thinks she is okay for now. Nurse will be going over tomorrow for another INR and pain will bereassess at that time. [facility] [place]08-14-2024 Telephone encounter Note* Telephone Encounter - Joon Lopez MD - 06/08/2024 7:31 PM EDT Does the Percocet or flexeril help at all for the pain? [facility] [place]08-14-2024 Telephone encounter Note* Telephone Encounter - Jamari Maki MA - 06/08/2024 11:34 AM EDT Pt failed to show to geriatric consult. No show letter sent to patient. Jamari Maki MA [facility] [place]08-14-2024 Miscellaneous Notes* Telephone Encounter - Jamari Maki MA - 06/08/2024 11:34 AM EDT Pt failed to show to geriatric consult. No show letter sent to patient. Jamari Maki MA documented in this encounterSelect Medical [facility] [place]08-14-2024 Telephone encounter Note * Telephone Encounter - Roopa Edgar RN - 06/08/2024 9:32 AM EDT Soren with [facility] calls to let provider know that patient [...] from provider. Roopa Edgar RN [facility] [place]08-09-2024 Telephone encounter Note* Telephone Encounter - Carmela Payne LPN - 06/03/2024 8:57 AM EDT Patient given results and verbalized understanding of instructions given. Carmela Payne LPN [facility] [place]08-09-2024 Miscellaneous Notes* Telephone Encounter - Carmela Payne LPN - 06/03/2024 8:57 AM EDT Patient given results and verbalized understanding of instructions given. Carmela Payne LPN * Telephone Encounter - Connie Giordano APRN.CNP - 06/03/2024 7:18 AM EDT Please notify caregiver that urine culture showed likely contamination. Patient was sent to ER. If patient still having urinary concerns needs to f/u with pcp for recheck. documented in this encounterSelect Medical [facility] [place]-2024 Telephone encounter Note * Telephone Encounter - Connie Giordano APRN.CNP - 06/03/2024 7:18 AM EDT Please notify caregiver that urine culture showed likely contamination. Patient was sent to ER. If patient still having urinary concerns needs to f/u with pcp for recheck. [facility] Work Phone: [phone]) 437-259508-08-2024 Telephone encounter Note* Telephone Encounter - Guerline Davila LPN - 06/02/2024 2:34 PM EDT Soren from [facility] notified of providers message and verbalized understanding. Consult sent to Dr. Hodges's office. [facility] [place]08-08-2024 Miscellaneous Notes* Telephone Encounter - Guerline Davila LPN - 06/02/2024 2:34 PM EDT Soren from [facility] notified of providers message and verbalized understanding. Consult sent to Dr. Hodges's office. * Telephone Encounter - Trini Tang APRN.CNS - 06/02/2024 2:29 PM EDT Ok please process * Telephone Encounter - Tamy Donis LPN - 06/01/2024 3:19 PM EDT Soren from [facility] calling patient is complaining of more back pain, her TENS unit broke. Family is trying to get another one for her. Daughter was asking for pain management referral, not Dr Agudelo, she was saying Dr Hodges here in [place]. Pending consult, needs diagnosis. Please advise documented in this encounterSelect Medical [facility] [place]-2024 Telephone encounter Note * Telephone Encounter - Trini Tang APRN.CNS - 06/02/2024 2:29 PM EDT Ok please process [facility] [place]08-07-2024 NoteHNO ID: [id number] Author: CLARISSE JOYCE APRN.MANAGER FRONT Service: ? Author Type: Nurse Practitioner Type: Progress Notes Filed: 06/01/2024 17:38 Note Text: This note was created using [employer]. Subjective Keisha Red is a 79 year old female. 79 year old female with PMH aflutter, HTN, hyperlipidemia, asthma, RAMESH, DM, DDD presents for complaints of possible UTI Acute onset Started today Per home health nurse she was hallucinating. She had weakness, and almost fell while going out of door prior to arrival Of note, patient was evaluated and admitted to [facility] At that time she was evaluated for falls and found to have a UTI Presents with her son today, with concerns she has UTI again. Denies abdominal pain Denies N/V/D Denies burning, frequency, or urgency Patient denies pain. The history is provided by the patient. No office chair assembler was used. PAST MEDICAL HISTORY No date: [...] Right shoulder s/p fall with reduction at [facility] No date: Type II or unspecified [...] hours as needed for wheezing/shortness of breath. 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 ([facility] pulmonology) blood sugar diagnostic (BLOOD GLUCOSE [...] for chest pain, palpitations (more content not included)...[facility]08-07-2024 History of Present illness Narrative* Clarisse Joyce APRN.[facility] - 06/01/2024 4:49 PM EDT This note was created using [employer] Subjective Keisha Red is a 79 year old female. 79 year old female with PMH aflutter, HTN, hyperlipidemia, asthma, RAMESH, DM, DDD presents for complaints of possible UTI Acute onset Started today Per home health nurse she was hallucinating. She had weakness, and almost fell while going out of door prior to arrival Of note, patient was evaluated and admitted to [facility] At that time she was evaluated for falls and found to have a UTI Presents with her son today, with concerns she has UTI again. Denies abdominal pain Denies N/V/D Denies burning, frequency, or urgency Patient denies pain. The history is provided by the patient. No office chair assembler was used. PAST MEDICAL HISTORY No date: [...] Right shoulder s/p fall with reduction at [facility] No date: Type II or unspecified [...] hours as needed for wheezing/shortness of breath. 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 ([facility] pulmonology) blood sugar diagnostic (BLOOD GLUCOSE [...] further evaluation - URINE CULTURE Clarisse Joyce APRN.MANAGER FRONT documented in this encounterSelect Medical [facility] [place]24 Telephone encounter Note * Telephone Encounter - Tamy Donis LPN - 06/01/2024 3:19 PM EDT Soren from [facility] calling patient is complaining of more back pain, her TENS unit broke. Family is trying to get another one for her. Daughter was asking for pain management referral, not Dr Agudelo, she was saying Dr Hodges here in [place]. Pending consult, needs diagnosis. Please advise [facility] [place]08-02-2024 Telephone encounter Note* Telephone Encounter - Taniya Nolan - 05/27/2024 [...] hours as needed for wheezing/shortness of breath. 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 She is using her inhaler more due to the weather and therefore, per pharmacy, she has no more refills. Taniya Baig Haley May 27, 2024 11:19 AM [facility] [place]08-02-2024 Miscellaneous Notes* Telephone Encounter - Taniya Nolan [...] hours as needed for wheezing/shortness of breath. 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 She is using her inhaler more due to the weather and therefore, per pharmacy, she has no more refills. Taniya De Leon May 27, 2024 11:19 AM documented in this encounterSelect Medical [facility] [place]-18-2024 Telephone encounter Note * Telephone Encounter - Mariahronnie SandyBOONE chappell - 05/12/2024 11:05 AM EDT Images from the original note were not included. Prior authorization approved Payer: [employer] [phone] CaseId:[id number];Status:Approved;Review Type:Prior Auth;Coverage Start Date:04/27/2024;Coverage End Date:05/12/2025; Approval [...] to its destination. To be filled at: [facility] [id number] - [place] [address] [address] [facility] - [phone] Pharmacy notified. [facility] [place]07-18-2024 Miscellaneous Notes* Telephone Encounter - Sandy Nunez LPN - 05/12/2024 11:05 AM EDT Images from the original note were not included. Prior authorization approved Payer: [employer] [phone] CaseId:[id number];Status:Approved;Review Type:Prior Auth;Coverage Start Date:04/27/2024;Coverage End Date:05/12/2025; Approval [...] to its destination. To be filled at: [facility] [id number] - [place] [address] [address] [facility] - [phone] Pharmacy notified. documented in this encounterSelect Medical [facility] [place]-17-2024 Telephone encounter Note * Telephone Encounter - Joon Lopez MD - 05/11/2024 7:16 PM EDT Agreeable to POC [facility] [place]07-17-2024 Miscellaneous Notes* Telephone Encounter - Joon Lopez MD - 05/11/2024 7:16 PM EDT Agreeable to POC * Telephone Encounter - Ira Peralta RN - 05/11/2024 4:32 PM EDT Starr, PT with [facility] calling with plan of care for patient. Physical Therapy will be seeing patient 2 times per week for 4 weeks for lower extremity strength, transfer and gait training, balance and fall prevention. No call back needed if PCP agreeable. Ira Peralta RN documented in this encounterSelect Medical [facility] [place]-17-2024 Telephone encounter Note * Telephone Encounter - Ira Peralta RN - 05/11/2024 4:32 PM EDT Starr PT with [facility] calling with plan of care for patient. Physical Therapy will be seeing patient 2 times per week for 4 weeks for lower extremity strength, transfer and gait training, balance and fall prevention. No call back needed if PCP agreeable. Ira Peralta RN [facility] [place]07-17-2024 Telephone encounter Note* Telephone Encounter - Whitney Hammond APRN.CNP - 05/11/2024 2:36 PM EDT Noted, agree. [facility] [place]07-17-2024 Miscellaneous Notes* Telephone Encounter - Whitney Hammond APRN.CNP - 05/11/2024 2:36 PM EDT Noted, agree. * Telephone Encounter - Yuko Rogers RN - 05/11/2024 1:44 PM EDT Steffi VILA calling from [facility] to report plan of care for patient and occupational therapy will visit patient 1 time a week for 5 weeks. Occupational therapy will work with patient on safety and IAdls. No call back needed. Yuko Rogers RN documented in this encounterSelect Medical [facility] [place]-17-2024 History of Present illness Narrative* Joon Lopez MD - 05/11/2024 2:20 PM EDT Chief Complaint Patient presents with: Hospital Follow Up HPI Keisha Red is a 79 year old female who presents here today for a Hospital follow up. Pt here today for a [facility] follow up. Here with daughter, Ana Maria. Pt presented to [facility] ED on 05/04/24 with symptoms of [...] other options. Pt is getting HH/PT through [facility] out to her home. Just started yesterday. Uro - Follows with Urology, takes Ditropan XL 10 mg once daily. Treated UTI with Macrobid 100 mg bid for 5 days. [facility] Report: HPI - General General Date [...] imaging with appropriate urine output and planned oni outpatient follow-up, recent ED evaluation earlier in [...] for discomfort who now represents to the [facility] ED later in the evening on [...] In the ED upon re-evaluation patient ministered [place] 1 tab p.o. x 1 and IV [...] does not want to go to a penitentiary facility and is open to home health [...] Right shoulder s/p fall with reduction at [facility] Type II or unspecified type diabetes [...] hours as needed for wheezing/shortness of breath. 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 ([facility] pulmonology) blood sugar diagnostic (BLOOD GLUCOSE [...] series) due on 09/23/2024 Covid-19 Vaccine( - 2022- season) due on 09/23/2024 Pneumococcal [...] adequate sleep. Lidocaine patches had helped at [facility]. Will see if affordable. Discussed can get OTC 4% patches. Avoid too much pain med I spent a total of 35 minutes on the date of the service which included [id number] patient care, completing clinical documentation, obtaining and/or reviewing separately obtained history, performing a medically appropriate examination, counseling and educating the patient/family/caregiver, ordering medications, tests, or procedures, independently interpreting results (not separately reported), and communicating results to the patient/family/caregiver. Joon Lopez MD documented in this encounterSelect Medical [facility] [place]-2024 Telephone encounter Note * Telephone Encounter - Yuko Rogers RN - 05/11/2024 1:44 PM EDT Steffi VILA calling from [facility] to report plan of care for patient and occupational therapy will visit patient 1 time a week for 5 weeks. Occupational therapy will work with patient on safety and IAdls. No call back needed. Yuko Rogers RN [facility] [place]07-17-2024 Telephone encounter Note* Telephone Encounter - Ira Peralta RN - 05/11/2024 8:23 AM EDT Detailed message left on Chris's identified and secure Home Health voicemail, of message below. Ira Peralta RN [facility]07-17-2024 Miscellaneous Notes* Telephone Encounter - Ira Peralta [...] 05/10/2024 4:18 PM EDT Soren nurse from [facility] HH calling with admission plan of care. [facility] nursing will see 2 times per week for 1 week then 1 time per week for 4 weeks. Confirming pt's med list. Per [facility] discharge med list, Metformin was stopped by hospitalist and Glimepiride was for 2 mg take 1 tablet once a day. Soren noted that on prescription bottlle pt has at home the Glimepiride is ordered as 1 tablet two times a day with meals which is confirmed from [facility]. He is going to continue having the pt take twice daily since Metformin was discontinued. He is unsure why the Metformin was discontinued. Last HgbA1c done in [facility] was 09/23/23 with result 6.5. Appears pt was to have repeated in February but was not done. Had other labs completed but no HgbA1c. Soren has no record of one being done either at [facility] recently. States he has a fasting glucose of 174 done on 05/07/24 at [facility]. Also asked if pt had active [...] OV appt on 06/22/24. documented in this encounterCleveland [id number] Telephone encounter Note * Telephone Encounter - [...] to confusion and memory issues. [facility]07-16-2024 Telephone encounter Note* Telephone Encounter - Miguelina Parson RN - 05/10/2024 4:18 PM EDT Soren nurse from [facility] HH calling with admission plan of care. [facility] nursing will see 2 times per week for 1 week then 1 time per week for 4 weeks. Confirming pt's med list. Per [facility] discharge med list, Metformin was stopped by hospitalist and Glimepiride was for 2 mg take 1 tablet once a day. Soren noted that on prescription bottlle pt has at home the Glimepiride is ordered as 1 tablet two times a day with meals which is confirmed from [facility] med[facility]. He is going to continue having the pt take twice daily since Metformin was discontinued. He is unsure why the Metformin was discontinued. Last HgbA1c done in [facility] was 09/23/23 with result 6.5. Appears pt was to have repeated in February but was not done. Had other labs completed but no HgbA1c. Soren has no record of one being done either at [facility] recently. States he has a fasting glucose of 174 done on 05/07/24 at [facility]. Also asked if pt had active [...] her OV appt on 06/22/24. [facility]07-15-2024 Telephone encounter Note* Telephone Encounter - Sylwia Vasquez LPN - 05/09/2024 9:59 AM EDT Starr with [facility] aware of Provider message. Denies need for patient to be seen sooner for Office visit than 06/22/24. Sylwia Vasquez LPN [facility]07-15-2024 Miscellaneous Notes* Telephone Encounter - Sylwia Vasquez LPN - 05/09/2024 9:59 AM EDT Starr with [facility] aware of Provider message. Denies need for patient to be seen sooner for Office visit than 06/22/24. Sylwia Vasquez LPN * Telephone Encounter - Trini Tang APRN.STEPHANIE - 05/06/2024 4:15 PM EDT OK for HHC. She has a PCP visit 06/22/2024, does she need to be seen sooner for hospital discharge follow up? Schedule appt if so. * Telephone Encounter - Roopa Edgar RN - 05/06/2024 2:33 PM EDT Starr with [facility] HH calls to ask if provider would be willing to follow HH orders for SN, PT, OT, and SW following discharge from [facility] for fall with contusion/laceration of scalp, lumbar strain, and UTI. HH plans to see patient ThursdayMay 10 after discharge and asking for ok for Delay in SOC as well. Please review and advise, Roopa Edgar RN documented in this [facility]Select [facility] [place] Telephone encounter Note * Telephone Encounter - Trini Tang APRN.CNS - 05/06/2024 4:15 PM EDT OK for HHC. She has a PCP visit 06/22/2024, does she need to be seen sooner for hospital discharge follow up? Schedule appt if so. [facility]07-12-2024 Telephone encounter Note* Telephone Encounter - Roopa Edgar RN - 05/06/2024 2:33 PM EDT Starr with [facility] HH calls to ask if provider would be willing to follow HH orders for SN, PT, OT, and SW following discharge from [facility] for fall with contusion/laceration of scalp, lumbar strain, and UTI. HH plans to see patient ThursdayMay 10 after discharge and asking for ok for Delay in SOC as well. Please review and adviseRoopa RN [facility]06-12-2024 Telephone encounter Note* Telephone Encounter - Miguelina Olmstead LPN - 04/06/2024 2:39 PM EDT TC to pt. LM to call office, ask for triage nurse to get results. Miguelina Olmstead LPN [facility] [place]06-12-2024 Miscellaneous Notes* Telephone Encounter - Miguelina Olmstead [...] to start to replace these. Whitney Hammond APRN.CNP documented in this encounterSelect [facility] [place] Telephone encounter Note * Telephone Encounter - Whitney Hammond APRN.CNP - 04/06/2024 2:35 PM EDT Labs show vitamin b12, magnesium and vitamin d are low. Please let her know I sent in daily supplements for her to start to replace these. Whitney Hammond APRN.CNP [facility]05-31-2024 Telephone encounter Note* Telephone Encounter - PedroSylwia boyd LPN - 03/25/2024 1:23 PM EDT Spoke with patient's daughter Dian, she will crab picker letter from Medical records in a few minutes. Nursing to take to MR. Sylwia Vasquez BOONE [facility]05-31-2024 Miscellaneous Notes* Telephone Encounter - Sylwia Vasquez BOONE - 03/25/2024 1:23 PM EDT Spoke with patient's daughter Dian, she will crab picker letter from Medical records in a few minutes. Nursing to take to MR. Sylwia Vasquez LPN * Telephone Encounter - Joon Lopez MD - 03/25/2024 1:13 PM EDT Did letter * Telephone Encounter - Nya De Oliveira RN - 03/24/2024 3:08 PM EDT Pts daughter called in and reports her and her mother were going to go to [facility] on Thursday or Thursday next week. She was asking if Pts provider could write her a letter for her to bring with them. She states her mother has a pacemaker, asthma, COPD, Bronchitis, and dementia. She statesgretel is on a fixed income and they are going to see what programs they can get her enrolled into to help pay for her propane and electric. Dian states she will come in and crab picker the letter. Please call and advise. documented in this encounterSelect [facility] [place] Telephone encounter Note * Telephone Encounter - Joon Lopez MD - 03/25/2024 1:13 PM EDT Did letter [facility]05-30-2024 Telephone encounter Note* Telephone Encounter - Nya De Oliveira, RN - 03/24/2024 3:08 PM EDT Pts daughter called in and reports her and her mother were going to go to [facility] on Thursday or Thursday next week. She [...] Dian states she will come in and crab picker the letter. Please call and advise. [facility]05-28-2024 Telephone encounter Note* Telephone Encounter - Carolina Kuo LPN - 03/22/2024 3:10 PM EDT Results faxed to [facility]. [facility]05-28-2024 Miscellaneous Notes* Telephone Encounter - Carolina Kuo LPN - 03/22/2024 3:10 PM EDT Results faxed to [facility]. * Telephone Encounter - Whitney Hammond APRN.CNP - 03/22/2024 3:02 PM EDT Can we please forward today's INR result to [facility]. Per patient they manage her INR/coumadin. documented in this encounterSelect [facility] [place] Telephone encounter Note * Telephone Encounter - Whitney Hammond APRN.CNP - 03/22/2024 3:02 PM EDT Can we please forward today's INR result to [facility]. Per patient they manage her INR/coumadin. [facility]05-28-2024 Instructions* Patient Instructions* Whitney Hammond APRN.CNP - [...] and gluten. documented in this encounterSelect Medical [facility] [place] History of Present illness Narrative* Whitney Hammond [...] supposed to follow up on her INR, [facility] manages INR for a fib. Her medications were reviewed today and her list is now up to date. Medications Current Outpatient Medications Medication Sig triamcinolone acetonide (KENALOG) 0.1 % cream Apply 1 application to affected area three times daily as needed. For rash on extremities and leg budesonide-formoterol (SYMBICORT) 160-4.5 mcg/actuation inhaler Inhale 2 Puffs as instructed twice daily. ([facility] pulmonology) warfarin (COUMADIN) 5 mg tablet [...] hours as needed for wheezing/shortness of breath. 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 Atrial flutter, unspecified type [...] Hammond APRN-DOMINGO documented in this encounterSelect [facility] [place] Telephone encounter Note * Telephone Encounter - Jamari Maki MA - 03/22/2024 8:33 AM EDT Pharmacy request denied. Patient needs to contact office for refills. Jamari Maki MA [facility]05-28-2024 Miscellaneous Notes* Telephone Encounter - Jamari Maki MA - 03/22/2024 8:33 AM EDT Pharmacy request denied. Patient needs to contact office for refills. Jamari Maki MA documented in this encounterSelect [facility] [place]24 Telephone encounter Note * Telephone Encounter - Sandy Nunez LPN - 03/18/2024 3:52 PM EDT My chart message to pt. [facility]05-24-2024 Miscellaneous Notes* Telephone Encounter - Sandy Nunez LPN - 03/18/2024 3:52 PM EDT My chart message to pt. * Telephone Encounter - Trini Tagn APRN.CNS - 03/18/2024 3:26 PM EDT OK [...] for scheduling. documented in this encounterSelect [facility] [place]24 Telephone encounter Note * Telephone Encounter - Trini Tang APRN.CNS - 03/18/2024 3:26 PM EDT OK order is in, check with patient to see if wanting to schedule [facility]05-23-2024 Telephone encounter Note* Telephone Encounter - Starr Lopez - 03/17/2024 11:52 AM EDT Patient's insurance, [employer], called to report that the patient recently experienced a fracture on her left elbow. She is eligible to have a bone density scan 05/07/24. Order pended, please contact patient when order is signed and available for scheduling. [facility]04-10-2024 History of Present illness Narrative* Joon Lopez MD - 02/03/2024 10:59 AM EDT This note was created using Barracuda Networksriter. Subjective Keisha Red is a 78 year [...] Right shoulder s/p fall with reduction at [facility] Type II or unspecified type diabetes mellitus without mention of complication, not stated as uncontrolled Unspecified asthma(493.90) Unspecified essential hypertension Current Outpatient Medications Medication Sig albuterol HFA (PROAIR HFA) 90 mcg/actuation inhaler Inhale 2 Puffs as instructed every 4 hours as needed for wheezing/shortness of breath. 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 ([facility] pulmonology) blood sugar diagnostic (BLOOD GLUCOSE [...] normal. Judgment: Judgment normal. Reviewed labs from [facility]. Assessment and Plan Encounter Diagnosis ICD-10-CM [...] the date of the service which included [id number] patient care, completing clinical documentation, obtaining and/or reviewing separately obtained history, performing a medically appropriate examination, counseling and educating the patient/family/caregiver, ordering medications, tests, or procedures, independently interpreting results (not separately reported), and communicating results to the patient/family/caregiver. Joon Lopez MD documented in this encounterSelect Medical [facility] [place]24 Discharge summary Author [facility] January 30, 2024 3:00pm Note Date/Time January 30, 2024 2:00 pm [facility] Medical Records Department [address] [place] [address] Discharge Summary 01/30/24 1400 MR#: [id number] Acct: [id number] Name: KEISHA RED Rep #:[id number] : 1945 78 From: Tonio jensen DO PCP: Dr. Joon Lopez MD Status:SEBASTIAN CARDENAS [facility] Date of Admission: 01/29/24 Date of [...] is a 78-year-old female who presented to [facility] ED on 01/29/2024 with dizziness/lightheadedness and worsening weakness at home. Short hospital course as noted below. Discharged home in stable condition on 01/29. . Dizziness/lightheadedness and worsening weakness, improved Lives at home alone, had lightheadedness and dizziness with standing with reported syncopal episode on day prior to admission. Was seen at [facility] ED, pacemaker interrogation was normal, vitals and [...] Clarity Clear, Urine pH 7.0, Ur Specific [place] 1.005, Urine Protein 30 H, Urine Glucose [...] % (Auto) Cancelled, Lymph % (Auto) Cancelled, [place] % (Auto) Cancelled, Eos % (Auto) Cancelled, [...] Drop Cells Cancelled, Ovalocytes Cancelled, Stomatocytes Cancelled, [place] Bodies Cancelled, Thor Cells Cancelled,Bite Cells Cancelled, Crenated Cell Cancelled, [...] (Auto) 69.8, Lymph % (Auto) 18.3 L, [place] % (Auto) 7.7, Eos % (Auto) 2.8, [...] % (Auto) 60.0, Lymph % (Auto) 24.4, [place]% (Auto) 9.6, Eos % (Auto) 4.7, Baso [...] Self Care Charges/Coding Visit Charges Inpatient E&M: 44502 Disch Hosp >30min 01/30/24 1500 <Electronically signed by Tonio Glass DO> Cosigner Signature (if applicable): CC: Dr. Tonio Glass DO; Dr. Joon Lopez MD~ Signed [facility] Work Phone: 1(514) 777-427104-06-2024 Discharge summary Author Tonio Glass [facility] January 30, 2024 1:59pm Note Date/Time January 30, 2024 1:57 pm [facility] Medical Records Department [address] [place] [address] Instructions for Home/Discharge Instructions 01/30/24 1355 MR#: [id number] Acct: [id number] Name: KEISHA RED Rep #:[id number] : 1945 78 From: Tonio jensen DO PCP: Dr. Joon Lopez MD Status:AD M THERESA Discharge Instructions Diet Discharge Diet: No restrictions [...] can be placed): Home, Self Care 01/30/24 6879<Electronically signed by Tonio Glass DO>Tonio Glass DO CC: Dr. Devyn Samaniego MD; Dr. Joon Lopez MD; Dr. Josesito Miller MD ~ Signed [facility] Work Phone: 1(781) 396-900204-06-2024 Consult note Author Devyn Samaniego [facility] January 30, 2024 8:40am Note Date/Time January 30, 2024 8:40 am [facility] Medical Records Department [address] [place] [id number] Consultation - Urology 01/30/24 0838 MR#: [id number] Acct: [id number] Name: KEISHA RED Rep #:[id number] : 1945 78 From: Devyn Samaniego MD PCP: Dr. Joon Lopez MD Status:[facility] Location: [place] [address] HPI Consult Data Date of Consult: 01/30/24 [...] IV contrast to further evaluate her kidneys. [facility] Medical History Allergic rhinitis Arthritis Asthma [...] of bladder infections Hydronephrosis, right Hyperlipidemia Hypersomnia [facility] (current) use of anticoagulants Non-smoker Obesity RAMESH [...] Clarity Clear, Urine pH 7.0, Ur Specific [place] 1.005, Urine Protein 30 H, Urine Glucose [...] % (Auto) Cancelled, Lymph % (Auto) Cancelled, [place] % (Auto) Cancelled, Eos % (Auto) Cancelled, [...] Drop Cells Cancelled, Ovalocytes Cancelled, Stomatocytes Cancelled, [place] Bodies Cancelled, Thor Cells Cancelled, Bite Cells Cancelled, Crenated Cell [...] (Auto) 69.8, Lymph % (Auto) 18.3 L, [place] % (Auto) 7.7, Eos % (Auto) 2.8, [...] % (Auto) 60.0, Lymph % (Auto) 24.4, [place]% (Auto) 9.6, Eos % (Auto) 4.7, Baso [...] applicable): CC: Dr. Devyn Samaniego MD; Dr. Jono Lopez MD; Dr. Josesito Miller MD~ Signed [facility] Work Phone: 1(658) 204-414304-05-2024 Discharge summary Author Miguel Pazs [facility] January 29, 2024 8:16pm Note Date/Time January 29, 2024 1:43 pm [facility] Medical Records Department [address] [place] [address] Emergency Department Summary 01/29/24 MR#: [id number] Acct: [id number] Name: KEISHA RED Rep #:[id number] : 1945 78 From: Miguel Galvan PCP: Dr. Joon Lopez MD Status:AD M THERESA Location: [address] <Dr[address] Miguel Perera DO - Last Filed: 01/29/24 20:16> History of Present Illness Chief Complaint: Dizziness <GREGORY Lombardo - Last Filed: 01/29/24 16:50> Narrative Narrative: 78-year-old female with PMH of HTN, HLD, DM2, atrial flutter, pulmonary hypertension, pacemaker, asthma presents with 2 days of lightheadedness with standing and syncopal episode yesterday. After syncope she was seen at [facility] and reports having a normal pacemaker interrogation, [...] had normal urination without hematuria or burning. [facility] <Dr. 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 Miguel Perera, DO - Last Filed: 01/29/24 20:16> [facility] Narrative Medical decision making narrative: History [...] post ablation status post pacemaker, kidney stone [facility] Narrative: Patient was hemodynamically stable, afebrile, nontoxic-appearing. [...] decision-making discussion This note was generated with easy2map dictation software. It may contain incorrectwords, spelling, [...] % (Auto) Cancelled Lymph % (Auto) Cancelled [place] % (Auto) Cancelled Eos % (Auto) Cancelled [...] Drop Cells Cancelled Ovalocytes Cancelled Stomatocytes Cancelled [place] Bodies Cancelled Bean Cells Cancelled Bite Cells Cancelled Crenated Cell [...] Clarity Clear Urine pH 7.0 Ur Specific [place] 1.005 Urine Protein 30 H Urine Glucose [...] (Auto) 69.8 Lymph % (Auto) 18.3 L [place] % (Auto) 7.7 Eos % (Auto) 2.8 [...] Target Cells Tear Drop Cells Ovalocytes Stomatocytes [place] Bodies Bean Cells Bite Cells Crenated Cell Acanthocytes (Spur) [...] Color Urine Clarity Urine pH Ur Specific [place] Urine Protein Urine Glucose (UA) Urine Ketones [...] <GREGORY Lombardo - Last Filed: 01/29/24 16:50> MDM MDM Narrative Medical decision making narrative: History gathered [...] decision-making discussion This note was generated with easy2map dictation software. It may contain incorrect words, spelling, [...] % (Auto) Cancelled Lymph % (Auto) Cancelled [place] % (Auto) Cancelled Eos % (Auto) Cancelled [...] Drop Cells Cancelled Ovalocytes Cancelled Stomatocytes Cancelled [place] Bodies Cancelled Thor Cells Cancelled Bite Cells Cancelled Crenated Cell [...] Clarity Clear Urine pH 7.0 Ur Specific [place] 1.005 Urine Protein 30 H Urine Glucose [...] (Auto) 69.8 Lymph % (Auto) 18.3 L [place] % (Auto) 7.7 Eos % (Auto) 2.8 [...] Target Cells Tear Drop Cells Ovalocytes Stomatocytes [place] Bodies Thor Cells Bite Cells Crenated Cell Acanthocytes (Spur) [...] Color Urine Clarity Urine pH Ur Specific [place] Urine Protein Urine Glucose (UA) Urine Ketones [...] normalized ratio (INR) Disposition Disposition: Acute Care Hospital [facility] Discharge Date/Time: 01/29/24 17:27 What to do if you have Problems For any increased pain, shortness of breath, bleeding, nausea or vomiting, chest pain, or any unexpected problems, contact your Primary Care Provider. Call [facility] ([phone]) or report to the closest Emergency Room. Call 911 if necessary. 01/29/242015 <Electronically signed by Miguel Perera DO> Cosigner Signature (if applicable): 01/29/24 1650 <Electronically signed by Meron JENKINS> CC: Dr. Joon Lopez MD ~ Signed [facility] Work Phone: 1(149) 153-435604-05-2024 History and physical note Author Josesito Miller [facility] January 29, 2024 5:11pm Note Date/Time January 29, 2024 4:36 pm [facility] Medical Records Department [address] [place] [address] H&P Exam - Hospitalist 01/29/24 1635 MR#: [id number] Acct: [id number] Name: KEISHA RED Rep #:[id number] : 1945 78 From: Josesito Rico PCP: [...] pressure shortness of breath or abdominal pain [facility] History Allergic rhinitis Arthritis Asthma Atrial [...] of bladder infections Hydronephrosis, right Hyperlipidemia Hypersomnia 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 IV fluid normal saline. Orthostatic blood pressure [...] shock if needed Total time spent in [id number]-od-[id number] encounter in discussion of advanced directive 17 [...] the brain. Charges/Coding Visit Charges Inpatient E&M: 35906 Init Hosp L2 Procedures Hospitalists Procedures: 04773 Advncd Care Plan 30 Min 01/29/24 1711 <Electronically signed by Josesito Miller MD> Cosigner Signature (if applicable): CC: Dr. Joon Lopez MD; Dr. Josesito iMller MD~ Signed [facility] Work Phone: 1(786) 703-978204-05-2024 Hospital Discharge instructions Patient Education 01/28/2024 23:49:50 [...] seeing Extreme drowsiness, confusion, dizziness, or fainting 4129-8011 [employer]. [address] [place] [address]. All rights reserved. This information is not intended as a substitute for professional medical care. Always follow yourhealthcare professional's instructions. Follow Up Care 01/28/2024 20:16:13 With:JOON LOPEZ MD Address: [address] [place] [address] [id number] When:2-4 days [facility] 04-04-2024 Note Discharge Instructions Thank you for allowing [facility] to assist you with your healthcare needs. [...] LOPEZ MD When Within 2-4 days Where: [address] [place] [address] [phone] Allergies amoxicillin penicillin sulfamethoxazole Medications Please ask [...] seeing Extreme drowsiness, confusion, dizziness, or fainting [phone] [employer]. [address] [place] [address], [place] [address]. All rights reserved. This information is not intended as a substitute for professional medical care. Always follow yourhealthcare professional's instructions. Additional Information VACCINATE! IT SAVES LIVES! Members of the community who have not yet received the COVID-19 vaccine and would like to receive it can visit one of [facility] vaccine clinics. There are many vaccine clinic locations within the [facility]. For locations and available times, please visit www.gettheshot.coronavirus.[place].gov/. It is important to note that some COVID mobile vaccine clinics are held outdoors and may be canceled in rainy or stormy conditions. To learn more about pediatric vaccinations (ages 5-11), we invite you to visit the [facility] webpage. https://www.[facility].org/pages/9627-Dxmky-Ilxzhniocqo-Sahbvlrgjw-Nntlh-Zuz stions.htmlTo learn more about the COVID-19 vaccine, we invite you to visit the CDC website for a list of frequently asked questions. https://www.cdc.gov/coronavirus/2019-ncov/vaccines/faq.html [facility] [employer] Patient Portal Access Instructions: Stay connected with your healthcare team and access your personal medical information anytime with the [employer] Patient Portal. If you would like a full copy of your medical records please contact the [facility] Medical Records Department Thursday through Thursday between 8a.m. and 4:30p.m. Please follow the directions below to access the portal: 1.Access the email account you provided upon registration to the [facility].2.Look for an invitation email from [facility].3.Open the email and access the invitation link: Accept Invitation to [facility]4.Fill in the required leger to create your account. Sign into www.Atmocean with your username and password that you [...] you will allow to register on the [facility] Patient Portal for access to your information. You can also access the [facility] Patient Portal on the [employer] rivera. Simply click on Health Records under Ideabove and then click on the [employer] logo. HOW TO SAFELY DISPOSE OF PRESCRIPTION [...] Call your local pharmacy or go to [email or web address] to find one close to you.3.Make use of household items: Use cat litter or old coffee grounds to dispose medications if other options arenot available. Mix your drugs with these household products, seal them in an airtight container andthrow it into the garbage. Call [facility]: [phone] to be sure your drugs can be [...] been reviewed and explained to me and IZAY RITA L understand my current condition and have read and understand these discharge instructions. I have received a written copy of the plan/instructions. If I have questions, I am aware that I should contact my doctor. Patient/Deliver Driver Signature: Date/Time: Relationship to Patient: Witness Name/Signature: Date/Time: [facility]04-04-2024 Note ORIGINAL EXAMINATION: ONE XRAY VIEW OF [...] Date: 01/28/2024 10:18:43 PM Ordering Provider: RUBIO [facility]04-04-2024 Note Afib/flutter and ventricular-paced rhythm No further analysis attempted due to paced rhythm EKG interpretation is noted and agreed to in [employer]. The interpretation of this patient's EKG contributed directly to the care and management of this patient. Electronic Signature: RUBIO GONZALEZ DO 01/28/2024 21:28:14[facility] 04-04-2024 Miscellaneous Notes* Telephone Encounter - Taylor Ruffin RN - 01/28/2024 7:25 PM EDT Daughter, Brooke calling to report mother has new symptoms [...] in face/no mouth droop Protocols used: Neurologic Qtubpsz-LUDYI-VJ documented in this encounterSelect [facility] Procedure [facility]03-12-2024 Miscellaneous Notes* Telephone Encounter - Joon [...] Peacock LPN documented in this encounterSelect Medical [facility] [place] History of Present illness Narrative* Joon Lopez MD - 01/05/2024 2:56 PM EDT This note was created using [employer] labster. Subjective Keisha Red is a 78 year [...] Right shoulder s/p fall with reduction at [facility] Type II or unspecified type diabetes mellitus without mention of complication, not stated as uncontrolled Unspecified asthma(493.90) Unspecified essential hypertension Current Outpatient Medications Medication Sig albuterol HFA (PROAIR HFA) 90 mcg/actuation inhaler Inhale 2 Puffs as instructed every 4 hours as needed for wheezing/shortness of breath. 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 ([facility] pulmonology) blood sugar diagnostic (BLOOD GLUCOSE [...] the date of the service which included scmj-bk-msed patient care, completing clinical documentation, obtaining and/or reviewing separately obtained history, performing a medically appropriate examination, counseling and educating the patient/family/caregiver, and ordering medications, tests, or procedures. Joon Lopez MD documented in this encounterSelect Medical [facility] [place]03-07-2024 Discharge summary Author Josesito Miller [facility] December 31, 2023 1:26pm Note Date/Time December 31, 2023 12:2 5pm [facility] Medical Records Department [address] [place] [address] Discharge Summary 12/31/23 1224 MR#: [id number] Acct: [id number] Name: KEISHA RED Rep #:[id number] : 1945 78 From: Josesito Rico PCP: Dr. Joon Lopez MD Status:AD IN Location: [place] [address] Providers Date of Admission: 12/29/23 Date of [...] ureteral stricture versusmass: Patient is admitted to MedSurg floor. UA positive nitrite LE and pyuria. [...] 80.5 H, Lymph % (Auto) 11.8 L, [place] % (Auto) 6.7, Eos % (Auto) 0.1, [...] Sl. Cloudy, Urine pH 6.5, Ur Specific [place] 1.010, Urine Protein 30 H, Urine Glucose (UA) Normal, Urine Ketones Negative, Urine Occult Blood 50 H, Urine Nitrite Positive H, Urine Bilirubin Negative, Urine Urobilinogen Normal, Ur Leukocyte Esterase 500 H, Urine RBC 5-10 SEEN, Urine WBC 25-50 SEEN, Ur Squamous Epith Cells 0 SEEN, UrineBacteria 4+, Urine Mucus 0 SEEN 03/06/24 06:40: POC Glucose 123 H 12/30/23 07:05: WBC 7.7, RBC 3.69 L, Hgb 11.7 L, Hct 34.9 L, MCV 94.6, MCH 31.7,MCHC 33.5, RDW Std Deviation 42.3, RDW Coeff of Jason 12.3, Plt Count 114 L, MPV 10.0, Immature Gran % (Auto) 0.600, Neut % (Auto) 76.2 H, Lymph % (Auto) 13.8 L,[place] % (Auto) 8.3, Eos % (Auto) 0.6, [...] Muscle Spasm) Qty: 20 0RF Hold Instructions: Ordered Referrals / Follow Up: Devyn Samaniego MD [Med Staff - Active Staff] - Within 1 Week (Please schedule for cystoscopy with biopsy) Joon Lopez MD [Primary Care Provider] - Within 2 Weeks Disposition Disposition (needs filled in before D/C Order can be placed): Home, Self Care Charges/Coding Visit Charges Inpatient E&M: 29529 Disch Hosp >30min 12/31/23 1325 <Electronically signed [...] MD; Dr. Josesito Miller MD ~* Signed [facility] Work Phone: 1(139) 531-220603-07-2024 Discharge summary Author Josesito Miller [facility] December 31, 2023 1:15pm Note Date/Time December 31, 2023 12:2 4pm [facility] Medical Records Department [address] [place] [address] Instructions for Home/Discharge Instructions 12/31/23 1224 MR#: [id number] Acct: [id number] Name: KEISHA RED Rep #:[id number] : 1945 78 From: Josesito Rico PCP: [...] Samaniego MD; Dr. Joon Lopez MD~ Signed [facility] Work Phone: 1(303) 447-298603-07-2024 Consult note Author Devyn Samaniego [facility] December 31, 2023 7:17am Note Date/Time December 31, 2023 7:17 am [facility] Medical Records Department [address] [place] [address] Consultation 12/31/23 0716 MR#: [id number] Acct: [id number] Name: KEISHA RED Rep #:[id number] : 1945 78 From: Devyn Samaniego MD PCP: Dr. 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 She can be discharged home when she stable my office call her and get herset up for outpatient ureteroscopy and biopsy of this mass and options of management. 12/31/23 0717 <Electronically signed by Devyn Samaniego MD> Cosigner Signature (if applicable): CC: Dr. Kassi Fisher MD; Dr. Devyn Samaniego MD; Dr. Joon Lopez MD~ Signed [facility] Work Phone: 1(590) 995-773203-06-2024 Progress note Author Josesito Miller [facility] December 30, 2023 2:49pm Note Date/Time December 30, 2023 9:37 am [facility] Medical Records Department [address] [place] [address] Progress Note - Hospitalist 12/30/23 0934 MR#: [id number] Acct: [id number] Name: KEISHA RED Rep #:[id number] : 1945 78 From: Josesito Rico PCP: Dr. Joon Lopez MD Status:AD M IN [facility] Reason for Visit Reason for Visit: Diagnoses [...] 80.5 H, Lymph % (Auto) 11.8 L, [place] % (Auto) 6.7, Eos % (Auto) 0.1, [...] Sl. Cloudy, Urine pH 6.5, Ur Specific Arcadia 1.010, Urine Protein 30 H, Urine Glucose [...] (Auto) 76.2 H, Lymph % (Auto) 13.8 L,[place] % (Auto) 8.3, Eos % (Auto) 0.6, [...] No acute fracture seen. Electronically Signed: Pete Vazuqez MD at 21:26 EST , Chest X-Ray [...] ureteral stricture versusmass: Patient is admitted to MedSurg floor. UA positive nitrite LE and pyuria. [...] 80.5 H, Lymph % (Auto) 11.8 L, [place] % (Auto) 6.7, Eos % (Auto) 0.1, [...] Sl. Cloudy, Urine pH 6.5, Ur Specific [place]cad[place] 1.010, Urine Protein 30 H, Urine Glucose [...] (Auto) 76.2 H, Lymph % (Auto) 13.8 L,[place] % (Auto) 8.3, Eos % (Auto) 0.6, [...] EST , Charges/Coding Visit Charges Inpatient E&M: 96439 Subs Hosp L2 12/30/23 1449 <Electronically signed by Josesito Miller MD> Cosigner Signature (if applicable): CC: ~ Signed [facility] Work Phone: 1(545) 481-333303-06-2024 Consult note Author Devyn Samaniego [facility] December 30, 2023 7:38am Note Date/Time December 30, 2023 7:38 am [facility] Medical Records Department [address] [facility] [place] [address] Consultation - Urology 12/30/23 0736 MR#: [id number] Acct: [id number] Name: KEISHA RED Rep #:[id number] : 1945 78 From: Devyn Samaniego MD PCP: Dr. Joon Lopez MD Status:AD M IN Location: [facility] [id number] Assessment & Plan Assessment/Plan (1) Hydronephrosis, right: [...] right retrograde pyelogram possible ureteroscopy and biopsy. 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 Cloudy, Urine pH 6.5, Ur Specific Arcadia 1.010, Urine Protein 30 H, Urine Glucose [...] Samaniego MD; Dr. Joon Lopez MD~ Signed [facility] Work Phone: 1(191) 777-875003-06-2024 Procedure [facility] 12-30-2023 History and physical note Author Kassi Fisher [facility] December 30, 2023 1:19am Note Date/Time December 29, 2023 10:4 4pm [facility] Medical Records Department [address] [place] [address] [place] [address] H&P Exam - Hospitalist 12/29/233 MR#: [id number] Acct: [id number] Name: KEISHA RED Rep #:[id number] : 1945 78 From: Kassi Fisher MD PCP: Dr. Joon Lopez MD Status:AD M IN Location: [facility] [id number] HPI - General General Date of Admission: 12/29/23 Date of Service: 12/29/23 Chief Complaint: Fall, foul smelling urine, weakness, back/rib pain after fall. HPI Narrative The patient is a 78 y/o F w/ PMHx: PAF/Flutter s/p ablation, Obesity, Asthma, Allergic Rhinitis, HTN, HLD, Hx complete HB s/p pacemaker, RAMESH, CKD stage III unclear subtype, Diabetes mellitus type II who presents to the [facility] ED on 12/29/23 with history of recent [...] In the ED patient ministered IV Rocephin. [facility] Medical History (Updated 12/30/23 @ 01:[address] 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 Cloudy, Urine pH 6.5, Ur Specific Arcadia 1.010, Urine Protein 30 H, Urine Glucose [...] Signed: Pete Vazquez MD at 21:07 EST Reading Location ID and State: [facility] / [place] , Service support , Abdomen/Pelvis CT 12/29/23 19:50 IMPRESSION: Right [...] mellitus type II who presents to the [facility] ED on 12/29/23 with history of recent [...] 16 minutes. Charges/Coding Visit Charges Inpatient E&M: 40491 Init Hosp L3 Procedures Hospitalists Procedures: 16520 Advncd Care Plan 30 Min 12/30/23 0119 <Electronically signed by Kassi Fisher MD> Cosigner Signature (if applicable): CC: Dr. Kassi Fisher MD; Dr. Joon Lopez MD~ Signed [facility] Work Phone: 1(149) 239-414803-06-2024 Discharge summary Author Abdifatah Lemon [facility] December 29, 2023 11:30pm Note Date/Time December 29, 2023 6:39 pm [facility] Medical Records Department [address] [place] [address] Emergency Department Summary 12/29/23 MR#: [id number] Acct: [id number] Name: KEISHA RED Rep #:[id number] : 1945 78 From: Abdifatah Lemon MD PCP: Dr. Joon Lopez MD Status:AD M IN Location: [facility] [id number] HPI HPI - Fall History of Present [...] fall Hx of bladder infections Hyperlipidemia Hypersomnia FCI (current) use of anticoagulants Obesity RAMESH (obstructive [...] moving all 4 extremities. She has good owner/operator strength. Dorsi plantarflexion. Neurologically she is awake [...] 80.5 H Lymph % (Auto) 11.8 L [place] % (Auto) 6.7 Eos % (Auto) 0.1 [...] Sl. Cloudy Urine pH 6.5 Ur Specific Arcadia 1.010 Urine Protein 30 H Urine Glucose [...] Signed: Pete Vazquez MD at 21:26 EST Reading Location ID and State: [facility] / [place] , Service support , Chest X-Ray 12/29/23 20:00 IMPRESSION: Degenerative changes, as described above. No demonstrated acute cardiopulmonary process. Electronically Signed: Pete Vazquez MD at 21:27 EST , Discharge [...] your Primary Care Provider. Call [facility] ([phone]) or report to the closest Emergency Room. Call 911 if necessary. 12/29/23 2330 <Electronically signed by Abdifatah Lemon MD> Cosigner Signature (if applicable): CC: Dr. Joon Lopez MD ~ Signed [facility] Work Phone: 1(259) 959-580002-20-2024 Miscellaneous Notes* Telephone Encounter - Yuko Rogers RN - 12/15/2023 8:24 AM EST Consults, office notes, and demographic faxed over to [facility] as requested. Patientnotified that paperwork faxed. Patient voices understanding. Yuko Rogers RN * Telephone Encounter - Trini Tang APRN.CNS - 12/14/2023 4:46 PM EST Consult placed, see below * Telephone Encounter - Yuko Rogers RN - 12/14/2023 1:02 PM EST Patient's daughter Brooke calls and states that patient continues to have a lot of back pain. Daughter is asking if provider can write a referral to spine doctor and fax referral to [facility] [phone]. Please review and advise, Yuko Rogers RN documented in this encounterSelect Medical [facility]02-09-20[facility] Procedure [facility]02-02-2024 Procedure [facility]12-06-2023 Miscellaneous Notes* Telephone Encounter - Liza [...] asking for something to help. Patient uses [facility] for her pharmacy. Please advise documented in this encounterSelect Medical [facility] [place]11-29-2023 History of Present illness Narrative* Whitney Hammond APRN.MANAGER FRONT - 09/23/2023 9:20 AM EST SUBJECTIVE Keisha [...] Fib. No recent bleeding issues. Follows with [facility]. No chest pains or chest tightness. Her medications were reviewed today and her list is now up to date. Medications Current Outpatient Medications Medication Sig albuterol HFA (PROAIR HFA) 90 mcg/actuation inhaler Inhale 2 Puffs as instructed every 4 hours as needed for wheezing/shortness of breath. 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 Do all this for 180 days. triamcinolone acetonide (KENALOG) 0.1 % cream Apply 1 application to affected area three times daily as needed. For rash on extremities and leg budesonide-formoterol (SYMBICORT) 160-4.5 mcg/actuation inhaler Inhale 2 Puffs as instructed twice daily. 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 09/23/2023 by Whitney Hammond APRN.DOMINGO Medical Decision Making: Problems: Moderate: 2+ stable [...] for Keep next scheduled appointment.. Whitney Hammond APRN-MANAGER FRONT documented in this encounterSelect Medical [facility] [place]11-24-2023 Miscellaneous Notes* Telephone Encounter - Carolina Kuo [...] hours as needed for wheezing/shortness of breath. 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 No need to notify patient. Mattie Mosley documented in this encounterSelect Medical [facility] [place]11-16-2023 Miscellaneous Notes* Telephone Encounter - Maddie Rojo LPN - 09/10/2023 2:59 PM EST Left a message with information listed below. Maddie Rojo LPN * Telephone Encounter - Trini Tang APRN.PACKAGING OPERATOR - 09/10/2023 2:29 PM EST If her back pain is a 10 of 10 and not being helped with medications she should go to the emergencydepartment for further evaluation and treatment. * Telephone Encounter - Tamy Donis LPN - 09/10/2023 2:17 PM EST Patient calling to ask if provider gave an answer. Went over notes below from Trini Tang STRAW HAT BRUSHER with understanding. Patient is going to call [facility] and discuss with them. * Telephone Encounter [...] the TENS unit electrodes to [facility], not sure if they can provide that [...] old & worn out. Pt uses [facility] in [place]. Please notify pt of response. Elvia Orellana LPN documented in this encounterSelect Medical [facility] [place]11-09-2023 Progress note Author Naeem Myesr [facility] September 03, 2023 1:05pm Note Date/Time September 03, 2023 8 :40am [facility] [address] [place] [address] Progress Note - Wound Care 09/03/23 0836 MR#: [id number] Acct: [id number] Name: KEISHA RED Rep #:[id number] : 1945 78 From: Naeem barry DPM [...] Start: 09/03/23 08:04 Freq: Status: Active Protocol: .LOWANDREE Activity Type Activity Date Activity User E-sign Co-sign Detail Recorded Client Recorded Date Recorded By Document 09/03/23 08:05 Desktop 09/03/23 08:16 KW 09/03/23 08:05 - Today's Visit Information Type of service Follow-up Visit (Physician/MANAGER FRONT ) Arrival Mode Ambulatory Patient Identification Verified [...] Recorded Date Recorded By Document 09/03/23 08:05 KW Desktop 09/03/23 08:16 KW 09/03/23 08:05 Wound [...] complication status: with skin complications 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 Last known A1c performed at [facility] 06/18/2022 was 6.1%. Discussed proper diabetic [...] No signs of infection Pain: May take kpwq-nvw-rigqnky Tylenol for discomfort Host factors: DM type [...] Cosigner Signature (if applicable): CC: ~ Signed [facility] Work Phone: 1(145) 814-309811-07-2023 Discharge summary Author Pete Che [facility] September 01, 2023 5:25pm Note Date/Time September 01, 2023 3 :13pm [facility] Medical Records Department [address] [place] [address] Emergency Department Summary 09/01/23 MR#: [id number] Acct: [id number] Name: KEISHA RED Rep #:[id number] : 1945 78 From: Pete Che MD [...] illness. No prodromal symptoms causing this fall. 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 Call [facility] ([phone]) or report to the closest Emergency Room. Call 911 if necessary. 09/01/23 1725 <Electronically signed by Pete Che MD> Cosigner Signature (if applicable): CC: Dr. Joon Lopez MD ~ Signed [facility] Work Phone: 1(457) 319-705609-28-2023 Progress note Author Naeem Myers [facility] July 23, 2023 9:11am Note Date/Time July 23, 2023 8:33am [facility] [place] [address] Progress Note - Wound Care 07/23/23 0833 MR#: [id number] Acct: [id number] Name: KEISHA RED Rep #:[id number] : 1945 78 From: Naeem barry DPM [...] Start: 07/02/23 08:02 Freq: Status: Active Protocol: JEANETTE.ROMULO Activity Type Activity Date Activity User E-sign Co-sign Detail Recorded Client Recorded Date Recorded By Document 07/02/23 08:03 DL [id number] 07/02/23 08:10 DL Document 07/09/23 08:12 KW [id number] 07/09/23 08:30 KW Document 07/16/23 08:04 DL Desktop 07/16/23 08:11 DL Document 07/23/23 08:09 DL Desktop 07/23/23 08:12 DL 09/05/1707/09/23 07/16/23 08:03 08:12 08:04 WC - Today's Visit Information Type of service Follow-up Visit Follow-up Visit Follow-up Visit (Physician/MANAGER FRONT (Physician/MANAGER FRONT (Physician/MANAGER FRONT ) ) ) Arrival Mode Ambulatory Ambulatory [...] Pain Free? Yes Yes Yes 07/23/23 08:09 - Today's Visit Information Type of service Follow-up Visit (Physician/MANAGER FRONT ) Arrival Mode Ambulatory Transfer Assistance None [...] Date Recorded By Document 07/02/23 08:03 DL [id number] 07/02/23 08:10 DL Document 07/09/23 08:12 KW [id number] 07/09/23 08:30 KW Document 07/16/23 08:04 DL [...] (34-66%) Small (1-33%) Medium (34-66%) -Granulation Quality [place] Red Red -Necrosis Amt Medium (34-66%) Medium [...] Date Recorded By Document 07/02/23 11:41 PL [id number] 07/02/23 11:50 PL Document 07/09/23 12:51 PL [id number] 07/09/23 12:54 PL Document 07/16/23 11:49 PL [id number] 07/16/23 11:54 PL 07/02/23 07/09/23 07/16/23 11:41 [...] Date 02/24/28 03/26/28 03/26/28 -Product Lot Number [id number] -Percent Used 100 100 [...] Is Patient Pain Free? Yes Yes Yes WC - Nurse 3 - General Ulcer D/C NN Start: 07/02/23 08:02 Freq: Status: Active Protocol: Activity Type Activity Date Activity User E-sign Co-sign Detail Recorded Client Recorded Date Recorded By Document 07/02/23 08:54 KW [id number] 07/02/23 08:54 KW Document 07/09/23 09:03 DL [id number] 07/09/23 09:05 DL Document 07/16/23 08:54 DL [...] Is Patient Pain Free? 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 Last known A1c performed at [facility] 06/18/2022 was 6.1%. Discussed proper diabetic [...] No signs of infection Pain: May take pxyt-pkr-shjsxny Tylenol for discomfort Host factors: DM type II, obesity, HTN, HLD, patient education on barefoot status encouraged shoe gear to be worn. I answered all the patient's questions. To return to the wound healing center in 1 week or call sooner if the patient has any questions or concerns. 07/23/23 0911 <Electronically signed by Naeem Myers DPM> Cosigner Signature (if applicable): CC: ~ Signed [facility] Work Phone: 1(991) 973-136709-21-2023 Miscellaneous Notes* Telephone Encounter - Trini Tang APRN.CNS - 07/16/2023 4:52 PM EDT ok * Telephone Encounter - Taylor Ruffin RN - 07/16/2023 3:27 PM EDT Patient calling to request order for new glucometer. Her old one is no longer working. Drug [facility]. Patient has been identified by name [...] Ruffin RN documented in this encounterSelect [facility] [place] Progress note [facility] July 16, 2023 9:02am Note Date/Time July 16, 2023 8:21am [facility] [address] [place] [address] Progress Note - Wound Care 07/16/23820 MR#: [id number] Acct: [id number] Name: ZAYKEISHA SANTOYO Tracie Rep #:[id number] : 1945 78 From: Naeem barry DPM [...] Date Recorded By Document 07/02/23 08:03 DL [id number] 07/02/23 08:10 DL Document 07/09/23 08:12 KW [id number] 07/09/23 08:30 KW Document 07/16/23 08:04 DL Desktop 07/16/23 08:11 DL 07/02/23 07/09/23 07/16/23 08:03 08:12 08:04 - Today's Visit Information Type of service Follow-up Visit Follow-up Visit Follow-up Visit (Physician/MANAGER FRONT (Physician/MANAGER FRONT (Physician/MANAGER FRONT ) ) ) Arrival Mode Ambulatory Ambulatory [...] Is Patient Pain Free? Yes Yes Yes WC - Nurse 1 - General Ulcer Measurement Start: 07/02/23 08:02 Freq: Status: Active Protocol: Activity Type Activity Date Activity User E-sign Co-sign Detail Recorded Client Recorded Date Recorded By Document 07/02/23 08:03 DL [id number] 07/02/23 08:10 DL Document 07/09/23 08:12 KW [id number] 07/09/23 08:30 KW Document 07/16/23 08:04 DL [...] (34-66%) Small (1-33%) Medium (34-66%) -Granulation Quality [place] Red Red -Necrosis Amt Medium (34-66%) Medium [...] Recorded Date Recorded By Document 07/02/23 11:41 [id number] 07/02/23 11:50 Document 07/09/23 12:51 [id number] 07/09/23 12:54 PL 07/02/23 07/09/23 11:41 12:51 [...] -Expiration Date 02/24/28 03/26/28 -Product Lot Number [id number] -Percent Used 100 100 -Bleeding [...] Date Recorded By Document 07/02/23 08:54 KW [id number] 07/02/23 08:54 KW Document 07/09/23 09:03 DL [id number] 07/09/23 09:05 DL 07/02/23 07/09/23 08:54 09:03 [...] complication status: with skin complications 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 Last known A1c performed at [facility] 06/18/2022 was 6.1%. Discussed proper diabetic [...] No signs of infection Pain: May take tfck-vei-uueyeug Tylenol for discomfort Host factors: DM type II, obesity, HTN, HLD, patient education on barefoot status encouraged shoe gear to be worn. I answered all the patient's questions. To return to the wound healing center in 1 week or call sooner if the patient has any questions or concerns. 07/16/23901 <Electronically signed by Naeem Myers DPM> Cosigner Signature (if applicable): CC: ~ Signed [facility] Work Phone: 1(589) 917-199909-19-2023 Miscellaneous Notes* Telephone Encounter - Liza Santana [...] Brooke Cooper documented in this encounterSelect Medical [facility] [place]-14-[facility] Progress note Author Naeem Myers [facility] July 09, 2023 9:09am Note Date/Time July 09, 2023 8:22am [facility] [address] [place] [address] Progress Note - Wound Care 07/09/23820 MR#: [id number] Acct: [id number] Name: KEISHA RED Rep #:[id number] : 1945 78 From: Naeem barry DPM [...] Start: 07/02/23 08:02 Freq: Status: Active Protocol: JEANETTE.ROMULO Activity Type Activity Date Activity User E-sign Co-sign Detail Recorded Client Recorded Date Recorded By Document 07/02/23 08:03 DL [id number] 07/02/23 08:10 DL 07/02/23 08:03 WC - Today's Visit Information Type of service Follow-up Visit (Physician/MANAGER FRONT ) Arrival Mode Ambulatory Transfer Assistance None [...] Date Recorded By Document 07/02/23 08:03 DL [id number] 07/02/23 08:10 DL 07/02/23 08:03 Wound Center Nurse 1 3-left dorsal foot -Current Size (cm) - Length 1.9 -Current Size (cm) - Width 1.6 -Current Size (cm) - Depth 0.3 -Total Square Cm 3.04 -Exudate Amt Medium -Exudate Type Serosanguineous -Wound Margin Distinct, Outline Attached -Granulation Amt Medium (34-66%) -Granulation Quality [place] -Necrosis Amt Medium (34-66%) -Necrotic Tissue Type [...] Date Recorded By Document 07/02/23 11:41 PL [id number] 07/02/23 11:50 PL 07/02/23 11:41 Wound Center [...] Epifix -Expiration Date 02/24/28 -Product Lot Number [id number] -Percent Used 100 -Bleeding Controlled with [...] Recorded Date Recorded By Document 07/02/23 08:54 [id number] 07/02/23 08:54 KW 07/02/23 08:54 Wound Care Center Nurse 3 [...] complication status: with skin complications Diabetes mellitus residential insulin use: unspecified special forces engineer sergeant insulin use status Diabetes mellitus type: type [...] continue application. Last known A1c performed at [facility] 06/18/2022 was 6.1%. Discussed proper diabetic [...] No signs of infection Pain: May take wyuu-fxa-eraouky Tylenol for discomfort Host factors: DM type II, obesity, HTN, HLD, patient education on barefoot status encouraged shoe gear to be worn. I answered all the patient's questions. To return to the wound healing center in 1 week or call sooner if the patient has any questions or concerns. 07/09/23 09 <Electronically signed by Naeem Myers DPM> Cosigner Signature (if applicable): CC: ~ Signed [facility] Work Phone: 1(805) 922-367209-07-2023 Progress note Author Naeem Myers [facility] July 02, 2023 9:06am Note Date/Time July 02, 2023 9:06am [facility] [address] [place] [address] Progress Note - Wound Care 07/02/23 0900 MR#: [id number] Acct: [id number] Name: ZAYKEISHA SANTOYO Tracie Rep #:[id number] : 1945 78 From: Naeem barry DPM [...] Date Recorded By Document 07/02/23 08:03 DL [id number] 07/02/23 08:10 DL 07/02/23 08:03 WC - Today's Visit Information Type of service Follow-up Visit (Physician/MANAGER FRONT ) Arrival Mode Ambulatory Transfer Assistance None [...] Recorded Date Recorded By Document 07/02/23 08:03 [id number] 07/02/23 08:10 DL 07/02/23 08:03 Wound Center Nurse 1 3-left dorsal foot -Current Size (cm) - Length 1.9 -Current Size (cm) - Width 1.6 -Current Size (cm) - Depth 0.3 -Total Square Cm 3.04 -Exudate Amt Medium -Exudate Type Serosanguineous -Wound Margin Distinct, Outline Attached -Granulation Amt Medium (34-66%) -Granulation Quality [place] -Necrosis Amt Medium (34-66%) -Necrotic Tissue Type Adherent Slough -Structure Exposed N/A -Texture (Beth-wound Skin Appearance) Scarring -Moisture (Beth-wound Skin Appearance) Maceration -Color (Beth-wound Skin Appearance) No Abnormality -Temperature (Beth-wound Skin No Abnormality Appearance) (Pt Warm) -Tenderness on Palpation (Beht-wound No Skin Appearance) -Ulcer Cleansing Soap and Water -Foul Odor after Cleansing No -Anesthetic Used 5% Lidocaine Gel - Nurse 3 - General Ulcer D/C NN Start: 07/02/23 08:02 Freq: Status: Active Protocol: Activity Type Activity Date Activity User E-sign Co-sign Detail Recorded Client Recorded Date Recorded By Document 07/02/23 08:54 [id number] 07/02/23 08:54 07/02/23 08:54 Wound Care Center Nurse 3 -Primary Dressing Covered/Secured with Dry Gauze & Roll Gauze, Secured with Tape Pain Scale: 0-10 Numeric Is Patient Pain Free? Yes - Visit Discharge Discharge Condition Stable Ambulatory [...] Diabetes mellitus type: type 2 Diabetes mellitus mcfp insulin use: unspecified residential insulin use status Diabetes mellitus complication status: [...] continue application. Last known A1c performed at [facility] 06/18/2022 was 6.1%. Discussed proper diabetic [...] No signs of infection Pain: May take yhxb-mqe-ujkcisf Tylenol for discomfort Host factors: DM type II, obesity, HTN, HLD, patient education on barefoot status encouraged shoe gear to be worn. I answered all the patient's questions. To return to the wound healing center in 1 week or call sooner if the patient has any questions or concerns. 07/02/23905 <Electronically signed by Naeem Myers DPM> Cosigner Signature (if applicable): CC: ~ Signed [facility] Work Phone: 1(121) 521-739608-31-2023 Progress note Author Naeem Myers [facility] June 25, 2023 8:57am Note Date/Time June 25, 2023 8: 28am [facility] [address] [place] [address] Progress Note - Wound Care 06/25/23 0827 MR#: [id number] Acct: [id number] Name: KEISHA RED Rep #:[id number] : 1945 78 From: Naeem barry DPM PCP: Dr. Joon Lopez MD Status:[facility] Location: History of Present Illness Date of [...] Recorded Date Recorded By Document 05/28/23 07:57 [id number] 05/28/23 08:13 Document 06/04/23 08:11 [id number] 06/04/23 08:13 Document 06/11/23 08:05 [facility] [id number] 06/11/23 08:13 BMF Document 06/18/23 08:21 DL [id number] 06/18/23 08:28 DL Document 06/25/23 08:04 DL [id number] 06/25/23 08:11 DL 05/28/23 06/04/23 06/11/23 07:57 08:11 08:05 - Today's Visit Information Type of service Follow-up Visit Follow-up Visit Follow-up Visit (Physician/MANAGER FRONT (Physician/MANAGER FRONT (Physician/MANAGER FRONT ) ) ) Arrival Mode Ambulatory Ambulatory [...] when Elevated No Communication Assessment Primary Language Emirati Preferred language Emirati Auto Headlight Mechanic Required No Able to Read Yes Able [...] in Ability to Perform Denies Any Declines Culture/Hoahaoism/Dry House Worker Cultural/Hoahaoism Needs that may affect No Treatment Plan Would you allow our hospital pulp screen operator to No meet you for the purpose of spiritual/ emotional support? Dry House Worker to contact place of congregation No Teaching: Wound Center *Welcome to the Wound Center -Person Taught Patient,Family -Teaching Method Discussion, Demonstration -Response to teaching Return demonstration, Verbalize understanding 06/18/23 06/25/23 08:21 08:04 WC - Today's Visit Information Type of service Follow-up Visit Follow-up Visit (Physician/MANAGER FRONT (Physician/MANAGER FRONT ) ) Arrival Mode Ambulatory Ambulatory Transfer [...] when Elevated Communication Assessment Primary Language Preferred coating operator Required Able to Read Able to Write [...] Assessment Recent Decline in Ability to Perform Culture/Hoahaoism/Dry House Worker Cultural/Hoahaoism Needs that may affect Treatment Plan Would you allow our hospital pulp screen operator to meet you for the purpose of spiritual/ emotional support? Dry House Worker to contact place of congregation Teaching: Wound Center *Welcome to the Wound Center -Person Taught -Teaching Method -Response to teaching WC - Nurse 1 - General Ulcer Measurement Start: 05/28/23 07:57 Freq: Status: Active Protocol: Activity Type Activity Date Activity User E-sign Co-sign Detail Recorded Client Recorded Date Recorded By Document 05/28/23 07:57 [id number] 05/28/23 08:13 Document 06/04/23 08:11 [id number] 06/04/23 08:13 Document 06/11/23 08:05 [facility] [id number] 06/11/23 08:13 BM Document 06/18/23 08:21 DL [id number] 06/18/23 08:28 DL Document 06/25/23 08:04 DL [id number] 06/25/23 08:11 DL 05/28/23 06/04/23 06/11/23 07:57 [...] Small (1-33%) Medium (34-66%) %) -Granulation Quality [place] -Slough/Fibrin Yes Yes Yes -Necrosis Amt Large [...] Date Recorded By Document 05/28/23 14:14 PL [id number] 05/28/23 14:15 PL Document 06/04/23 12:12 PL [id number] 06/04/23 12:12 PL Document 06/11/23 12:39 PL [id number] 06/11/23 12:42 PL Document 06/18/23 09:21 PL [id number] 06/18/23 09:24 PL 05/28/23 06/04/23 06/11/23 14:14 [...] Epifix -Expiration Date 01/25/28 -Product Lot Number [id number] -Percent Used 100 -Bleeding Controlled with [...] Epifix -Expiration Date 01/25/28 -Product Lot Number [id number] -Percent Used 100 -Bleeding Controlled with [...] Recorded Date Recorded By Document 06/04/23 08:56 JF [id number] 06/04/23 08:56 Document 06/11/23 09:01 [facility] [id number] 06/11/23 09:03 [facility] Document 06/18/23 09:32 [id number] 06/18/23 09:32 06/04/23 06/11/23 06/18/23 08:56 09:01 [...] Is Patient Pain Free? Yes Yes Yes WC - Visit Discharge Discharge [...] status: with other specified complication Diabetes mellitus special forces engineer sergeant insulin use: without special forces engineer sergeant use Qualified Code(s): E11.69 - Type 2 [...] continue application. Last known A1c performed at [facility] 06/18/2022 was 6.1%. Discussed proper diabetic [...] No signs of infection Pain: May take jnqn-mpj-murzgla Tylenol for discomfort Host factors: DM type [...] Cosigner Signature (if applicable): CC: ~ Signed [facility] Work Phone: 1(120) [phone] Miscellaneous Notes* Telephone Encounter - Sylwia Vasquez LPN - 06/22/2023 11:11 AM EDT Faxed request to [employer] to have compliance report faxed to office today prior to OV. Sylwia Vasquez LPN * Telephone Encounter - Joon Lopez MD - 06/18/2023 5:21 PM EDT Noted--make sure addressed when patient seen for follow up * Telephone Encounter - Yuko Rogers RN - 06/16/2023 1:52 PM EDT Patient's [...] foot. Yuko Rogers RN documented in this encounterSelect Medical [facility] [place] Progress note Author Naeem Myers [facility] June 18, 2023 9:37am Note Date/Time June 18, 2023 9: 37am [facility] [address] [place] [address] Progress Note - Wound Care 06/18/23 0932 MR#: [id number] Acct: [id number] Name: KEISHA RED Rep #:[id number] : 1945 78 From: Naeem barry DPM [...] Recorded Date Recorded By Document 05/28/23 07:57 [id number] 05/28/23 08:13 Document 06/04/23 08:11 [id number] 06/04/23 08:13 Document 06/11/23 08:05 [facility] [id number] 06/11/23 08:13 [facility] Document 06/18/23 08:21 DL [id number] 06/18/23 08:28 DL 05/28/23 06/04/23 06/11/23 07:57 08:11 08:05 WC - Today's Visit Information Type of service Follow-up Visit Follow-up Visit Follow-up Visit (Physician/MANAGER FRONT (Physician/MANAGER FRONT (Physician/MANAGER FRONT ) ) ) Arrival Mode Ambulatory Ambulatory [...] when Elevated No Communication Assessment Primary Language Emirati Preferred language Emirati Auto Headlight Mechanic Required No Able to Read Yes Able [...] in Ability to Perform Denies Any Declines Culture/Hoahaoism/Dry House Worker Cultural/Hoahaoism Needs that may affect No Treatment Plan Would you allow our hospital pulp screen operator to No meet you for the purpose of spiritual/ emotional support? Dry House Worker to contact place of congregation No Teaching: Wound Center *Welcome to the Wound Center -Person Taught Patient,Family -Teaching Method Discussion, Demonstration -Response to teaching Return demonstration, Verbalize understanding 06/18/23 08:21 WC - Today's Visit Information Type of service Follow-up Visit (Physician/MANAGER FRONT ) Arrival Mode Ambulatory Transfer Assistance None [...] when Elevated Communication Assessment Primary Language Preferred coating operator Required Able to Read Able to Write [...] Assessment Recent Decline in Ability to Perform Culture/Hoahaoism/Dry House Worker Cultural/Hoahaoism Needs that may affect Treatment Plan Would you allow our hospital pulp screen operator to meet you for the purpose of spiritual/ emotional support? Dry House Worker to contact place of congregation Teaching: Wound Center *Welcome to the Wound Center -Person Taught -Teaching Method -Response to teaching - Nurse 1 - General Ulcer Measurement Start: 05/28/23 07:57 Freq: Status: Active Protocol: Activity Type Activity Date Activity User E-sign Co-sign Detail Recorded Client Recorded Date Recorded By Document 05/28/23 07:57 [id number] 05/28/23 08:13 Document 06/04/23 08:11 [id number] 06/04/23 08:13 Document 06/11/23 08:05 [facility] [id number] 06/11/23 08:13 [facility] Document 06/18/23 08:21 DL [id number] 06/18/23 08:28 DL 05/28/23 06/04/23 06/11/23 07:57 [...] Small (1-33%) Medium (34-66%) %) -Granulation Quality [place] -Slough/Fibrin Yes Yes Yes -Necrosis Amt Large [...] Date Recorded By Document 05/28/23 14:14 PL [id number] 05/28/23 14:15 PL Document 06/04/23 12:12 PL [id number] 06/04/23 12:12 PL Document 06/11/23 12:39 PL [id number] 06/11/23 12:42 PL Document 06/18/23 09:21 PL [id number] 06/18/23 09:24 PL 05/28/23 06/04/23 06/11/23 14:14 [...] Epifix -Expiration Date 01/25/28 -Product Lot Number [id number] -Percent Used 100 -Bleeding Controlled with [...] Epifix -Expiration Date 01/25/28 -Product Lot Number [id number] -Percent Used 100 -Bleeding Controlled with [...] Recorded Date Recorded By Document 06/04/23 08:56 [id number] 06/04/23 08:56 Document 06/11/23 09:01 [facility] [id number] 06/11/23 09:03 [facility] 06/04/23 06/11/23 08:56 09:01 Wound Care [...] status: with other specified complication Diabetes mellitus residential insulin use: without special forces engineer sergeant use Qualified Code(s): E11.69 - Type 2 [...] continue application. Last known A1c performed at [facility] 06/18/2022 was 6.1%. Discussed proper diabetic [...] No signs of infection Pain: May take apvp-ijv-otmdykl Tylenol for discomfort Host factors: DM type [...] Cosigner Signature (if applicable): CC: ~ Signed [facility] Work Phone: 1(121) 114-547208-17-2023 Progress note Author Naeem Myers [facility] June 11, 2023 9:40am Note Date/Time June 11, 2023 9: 40am [facility] [address] [place] [address] Progress Note - Wound Care 06/11/23 0935 MR#: [id number] Acct: [id number] Name: KEISHA RED Rep #:[id number] : 1945 78 From: Naeem barry DPM [...] Recorded Date Recorded By Document 05/28/23 07:57 [id number] 05/28/23 08:13 Document 06/04/23 08:11 [id number] 06/04/23 08:13 Document 06/11/23 08:05 [facility] [id number] 06/11/23 08:13 [facility] 05/28/23 06/04/23 06/11/23 07:57 08:11 08:05 WC - Today's Visit Information Type of service Follow-up Visit Follow-up Visit Follow-up Visit (Physician/MANAGER FRONT (Physician/MANAGER FRONT (Physician/MANAGER FRONT ) ) ) Arrival Mode Ambulatory Ambulatory [...] when Elevated No Communication Assessment Primary Language Emirati Preferred language Emirati Auto Headlight Mechanic Required No Able to Read Yes Able [...] in Ability to Perform Denies Any Declines Culture/Hoahaoism/Dry House Worker Cultural/Hoahaoism Needs that may affect No Treatment Plan Would you allow our hospital pulp screen operator to No meet you for the purpose of spiritual/ emotional support? Dry House Worker to contact place of congregation No Teaching: Wound Center *Welcome to the Wound Center -Person Taught Patient,Family -Teaching Method Discussion, Demonstration -Response to teaching Return demonstration, Verbalize understanding WC - Nurse 1 - General Ulcer Measurement Start: 05/28/23 07:57 Freq: Status: Active Protocol: Activity Type Activity Date Activity User E-sign Co-sign Detail Recorded Client Recorded Date Recorded By Document 05/28/23 07:57 MARYURI [id number] 05/28/23 08:13 JF Document 06/04/23 08:11 MARYURI [id number] 06/04/23 08:13 Document 06/11/23 08:05 [facility] [id number] 06/11/23 08:13 [facility] 05/28/23 06/04/23 06/11/23 07:57 08:11 08:05 Wound [...] Small (1-33%) Medium (34-66%) %) -Granulation Quality [place] -Slough/Fibrin Yes Yes Yes -Necrosis Amt Large [...] Date Recorded By Document 05/28/23 14:14 PL [id number] 05/28/23 14:15 PL Document 06/04/23 12:12 PL [id number] 06/04/23 12:12 PL 05/28/23 06/04/23 14:14 12:12 [...] Recorded Date Recorded By Document 06/04/23 08:56 [id number] 06/04/23 08:56 Document 06/11/23 09:01 [facility] [id number] 06/11/23 09:03 [facility] 06/04/23 06/11/23 08:56 09:01 Wound Care [...] status: with other specified complication Diabetes mellitus special forces engineer sergeant insulin use: without residential use Qualified Code(s): E11.69 - Type 2 [...] epi fix. Last known A1c performed at [facility] 06/18/2022 was 6.1%. Discussed proper diabetic [...] No signs of infection Pain: May take wxoh-ekp-upofzkg Tylenol for discomfort Host factors: DM type [...] Cosigner Signature (if applicable): CC: ~ Signed [facility] Work Phone: 1(781) 770-950408-10-2023 Progress note Author Naeem Myers [facility] June 04, 2023 11:58am Note Date/Time June 04, 2023 8: 28am [facility] [address] [place] [address] Progress Note - Wound Care 06/04/23 0828 MR#: [id number] Acct: [id number] Name: KEISHA RED #:[id number] : 1945 78 From: Naeem barry DPM [...] Start: 05/28/23 07:57 Freq: Status: Active Protocol: .LOWEXLiz Activity Type Activity Date Activity User E-sign Co-sign Detail Recorded Client Recorded Date Recorded By Document 05/28/23 07:57 [id number] 05/28/23 08:13 Document 06/04/23 08:11 [id number] 06/04/23 08:13 05/28/23 06/04/23 07:57 08:11 - Today's Visit Information Type of service Follow-up Visit Follow-up Visit (Physician/MANAGER FRONT (Physician/MANAGER FRONT ) ) Arrival Mode Ambulatory Ambulatory Transfer [...] when Elevated No Communication Assessment Primary Language Emirati Preferred language Emirati Auto Headlight Mechanic Required No Able to Read Yes Able [...] in Ability to Perform Denies Any Declines Culture/Hoahaoism/Dry House Worker Cultural/Hoahaoism Needs that may affect No Treatment Plan Would you allow our [facility] pulp screen operator to No meet you for the purpose of spiritual/ emotional support? Dry House Worker to contact place of congregation No Teaching: Wound Center *Welcome to the Wound Center -Person Taught Patient,Family -Teaching Method Discussion, Demonstration -Response to teaching Return demonstration, Verbalize understanding - Nurse 1 - General Ulcer Measurement Start: 05/28/23 07:57 Freq: Status: Active Protocol: Activity Type Activity Date Activity User E-sign Co-sign Detail Recorded Client Recorded Date Recorded By Document 05/28/23 07:57 [id number] 05/28/23 08:13 Document 06/04/23 08:11 [id number] 06/04/23 08:13 05/28/23 06/04/23 07:57 08:11 Wound [...] Present (0 Small (1-33%) %) -Granulation Quality [place] -Slough/Fibrin Yes Yes -Necrosis Amt Large (67-100%) [...] Date Recorded By Document 05/28/23 14:14 PL [id number] 05/28/23 14:15 PL 05/28/23 14:14 Wound Center [...] status: with other specified complication Diabetes mellitus residential insulin use: without residential use Qualified Code(s): E11.69 - Type 2 [...] next visit. [facility] [facility] 06/18/2022 was 6.1%. Discussed proper diabetic [...] No signs of infection Pain: May take ujyt-bam-mlpykil Tylenol for discomfort Host factors: DM type [...] Cosigner Signature (if applicable): CC: ~ Signed [facility] Work Phone: 1(120) 869-783608-03-2023 History and physical note Author Naeem Louis [facility] May 28, 2023 10:51am Note Date/Time May 28, 2023 8:2 9am [facility] [address] [place] [id number] H&P Exam - Wound Care 05/28/23 0829 MR#: [id number] Acct: [id number] Name: KEISHA RED Rep #:[id number] : 1945 78 From: Naeem barry DPM [...] denies any N/V/F/chills. Denies any further complaints. 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 Contact dermatitis and other eczema COVID-19 Cystitis DDD (degenerative disc disease) Diabetes mellitus Encephalopathy acute Essential hypertension Hx of bladder infections Hyperlipidemia Hypersomnia FCI (current) use of anticoagulants Obesity RAMESH (obstructive [...] Start: 05/28/23 07:57 Freq: Status: Active Protocol: JEANETTE.LOWEXT Activity Type Activity Date Activity User E-sign Co-sign Detail Recorded Client Recorded Date Recorded By Document 05/28/23 07:57 MARYURI [id number] 05/28/23 08:13 MARYURI 05/28/23 07:57 - Today's Visit Information Type of service Follow-up Visit (Physician/MANAGER FRONT ) Arrival Mode Ambulatory Transfer Assistance Manual [...] when Elevated No Communication Assessment Primary Language Emirati Preferred language Emirati Auto Headlight Mechanic Required No Able to Read Yes Able [...] in Ability to Perform Denies Any Declines Culture/Hoahaoism/Dry House Worker Cultural/Hoahaoism Needs that may affect No Treatment Plan Would you allow our hospital pulp screen operator to No meet you for the purpose of spiritual/ emotional support? Dry House Worker to contact place of congregation No Teaching: Wound Center *Welcome to the Wound Center -Person Taught Patient,Family -Teaching Method Discussion, Demonstration -Response to teaching Return demonstration, Verbalize understanding WC - Nurse 1 - General Ulcer Measurement Start: 05/28/23 07:57 Freq: Status: Active Protocol: Activity Type Activity Date Activity User E-sign Co-sign Detail Recorded Client Recorded Date Recorded By Document 05/28/23 07:57 MARYURI [id number] 05/28/23 08:13 MARYURI 05/28/23 07:57 Wound Center [...] status: with other specified complication Diabetes mellitus residential insulin use: without residential use Qualified Code(s): E11.69 - Type 2 [...] next visit. Last known A1c performed at [facility] 06/18/2022 was 6.1%. Discussed proper diabetic [...] No signs of infection Pain: May take zexm-thi-aafgztc Tylenol for discomfort Host factors: DM type [...] Cosigner Signature (if applicable): CC: ~ Signed [facility] Work Phone: 1(810) 250-704207-27-2023 Discharge summary Author Freddy Robert [facility] May 21, 2023 1:31pm Note Date/Time May 21, 2023 1:31 pm [facility] Medical Records Department [address] [place] [address] Emergency Department Summary 05/21/23 MR#: [id number] Acct: [id number] Name: KEISHA RED Rep #:[id number] : 1945 78 From: Freddy Robert MD [...] Prior similar symptoms: Yes Recent Illness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 Call [facility] ([phone]) or report to the closest Emergency Room. Call 911 if necessary. 05/21/23 1331 <Electronically signed by Freddy Robert MD> Cosigner Signature (if applicable): CC: Dr. Joon Lopez MD ~ Signed [facility] Work Phone: 1(832) 934-553707-18-2023 Instructions* Patient Instructions* Whitney Hammond APRN.MANAGER FRONT - 05/12/2023 9:09 AM EDT Take your [...] the Keflex, start doxycycline for infection. See chain carrier (foot doctor). documented in this encounterSelect [facility] [place] History of Present illness Narrative* Whitney Hammond APRN.DOMINGO - 05/12/2023 8:51 AM EDT Images from the original note were not included. SUBJECTIVE Keisha Red is a 78 year old female here today for an ER follow up. Chief Complaint Patient presents with: Wound Check: 05/02/2023 left foot burn from a plate of hot chicken sliding of plate 2 week ago seenin [facility] ER on 05/09/23. Was treated with cephalexin 500mg every 6 hours. HPI Keisha Red is a 78 year old female established patient of Joon Lopez MD. She presents today for an ER follow up. Seen in the ER at [facility] for an injury sustained on 05/02. [...] hours as needed for wheezing/shortness of breath. 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) diclofenac (VOLTAREN ARTHRITIS PAIN) 1 % [...] Hammond APRN-DOMINGO documented in this encounterSelect Medical [facility] [place]07-12-2023 Miscellaneous Notes* Telephone Encounter - Joon Lopez [...] the patient as she uses [facility] in [place] documented in this encounterSelect Medical [facility] [place]06-22-[facility]23 History of Present illness Narrative* Trini Tang APRN.PACKAGING OPERATOR - 04/16/2023 7:11 AM EDT SUBJECTIVE: SPIROMETRY [...] OAC, PPM, states seen last week. Cardiology: [facility] Bleeding difficulties: no DIABETES MELLITUS: [...] 03/25/2022 6.0 ) She reports going to [facility] for eye exams. Does not have a chain carrier currently. No complaints with her feet. Declines [...] hours as needed for wheezing/shortness of breath. 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) blood sugar diagnostic (RELION PRIME TEST [...] Right shoulder s/p fall with reduction at [facility] Type II or unspecified type diabetes [...] - ICD9: 250.00, ICD10: E11.9 Trini Tang APRN.CNS Keep 3 mo follow up MD Trini Mcgraw APRN.CNS Medical Decision Making: Problems: Low: Acute, uncomplicated illness or injury Risk: Moderate: Drug management Medical Decision Making Level: 3 - Low documented in this encounterSelect Medical [facility] [place]06-21-2023 Miscellaneous Notes* Telephone Encounter - Yuko Rogers RN - 04/15/2023 3:10 PM EDT Patient [...] out of chair anyways. Protocols used: Chest Sujo-ZZBRB-UM, Breathing Rewcmwakba-VSKRK-QV documented in this encounterSelect Medical [facility] [place]06-09-2023 History of Present illness Narrative* Joon Lopez MD - 04/03/2023 12:33 PM EDT This note was created using [employer]. Subjective Keisha Red is a 78 year [...] Right shoulder s/p fall with reduction at [facility] Type II or unspecified type diabetes [...] hours as needed for wheezing/shortness of breath. 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 Judgment: Judgment normal. Labs from [facility] ER evaluation reviewed. Assessment and Plan Encounter Diagnosis ICD-10-CM 1. Controlled type 2 diabetes mellitus without complication, without long-term current use of insulin ([facility]) E11.9 metFORMIN ER (GLUCOPHAGE XR) 500 mg [...] PANEL BASIC 7. Atrial flutter, unspecified type ([facility]) I48.92 8. Pacemaker Z95.0 9. Essential hypertension I10 10. Mild intermittent asthma without complication J45.20 11. RAMESH (obstructive sleep apnea) G47.33 12. 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 Anticoagulated on Coumadin Z79.01 14. Pulmonary hypertension ([facility]) I27.20 Follows with [place] pulmonology Above issues addressed with patient. [...] the date of the service which included nptn-jd-kwlu patient care, completing clinical documentation, performing a medically appropriate examination, counseling and educating the patient/family/caregiver, ordering medications, tests, or procedures, and communicating results to the patient/family/caregiver. Joon Lopez MD documented in this encounterSelect Medical [facility] [place]06-06-2023 Instructions* Patient Instructions* Whitney Hammond APRN.CNP - [...] a steroid. documented in this encounterSelect Medical [facility], [place]06-06-2023 History of Present illness Narrative* Whitney Hammond APRN.CNP - 03/31/2023 9:16 AM EDT Images from [...] hours as needed for wheezing/shortness of breath. 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 03/31/2023 by Whitney Hammond APRN.MANAGER FRONT - OXYCODONE-ACETAMINOPHEN 5 MG-325 MG TABLET 3. [...] Hammond APRN-DOMINGO documented in this encounterSelect Medical [facility] [place]06-01-2023 Miscellaneous Notes* Telephone Encounter - Taylor Ruffin [...] Ruffin RN documented in this encounterSelect Medical [facility], [place]03-03-2023 Miscellaneous Notes* Telephone Encounter - Sandy Nunez LPN - 12/26/2022 3:51 PM EST Electronic PA completed for cyclobenzaprine. This was approved form 12/12/22 to 12/27/23. documented in this encounterSelect Medical [facility] [place]03-03-2023 History of Present illness Narrative* Joon Lopez MD - 12/26/2022 11:55 AM EST This note was created using [employer] Subjective Keisha Red is a 77 year [...] Right shoulder s/p fall with reduction at [facility] Type II or unspecified type diabetes [...] hours as needed for wheezing/shortness of breath. 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 Aware PCP is out of office today and patient can not make the appt time offered for [facility]. Advised patient that she can walk [facility] for evaluation tosee if she has UTI. Patient plans to do that today. documented in this encounterSelect Medical [facility] [place]01-26-2023 Miscellaneous Notes* Telephone Encounter - Cecilia Rojo [...] Rojo Pss documented in this encounterSelect Medical [facility], [place]11-21-2022 Miscellaneous Notes* Telephone Encounter - Joon Lopez [...] LOPEZ MD * Telephone Encounter - Omaira Ortega Pss - 09/15/2022 8:43 AM EST Patient has been identified by name and date of : Yes Requested Prescriptions Pending Prescriptions Disp Refills oxyCODONE-acetaminophen (PERCOCET) 5-325 mg tablet Sig: Last filled February RX INSTRUCTIONS: had back muscle spasms last night bad. Patient aware RX will be sent to pharmacy. No need to notify patient. Omaira Ortega Pss documented in this encounterSelect Medical [facility] [place]10-03-2022 Miscellaneous Notes* Telephone Encounter - Tamy Donis LPN - 07/28/2022 9:03 AM EDT Patient calling asking for new glucose meter, one she had stopped working. She does not know which meter is covered by her insurance. Pending generic meter, strips, lancets to file. Patient uses [facility] for her pharmacy. Aware PCP is out [...] Donis LPN documented in this encounterSelect Medical [facility] [place]09-06-2022 History of Present illness Narrative* Joon Lopez MD - 07/01/2022 11:45 AM EDT This note was created using [employer]. Subjective Keisha Red is a 77 year [...] Right shoulder s/p fall with reduction at [facility] Type II or unspecified type diabetes [...] hours as needed for wheezing/shortness of breath. 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 Reports something is not right. Daughteris [...] Will keep apt tomorrow 06/18/[address] [place]. Pt still not feeling well. Maddie Rojo LPN documented in this encounterSelect Medical [facility], [place]08-22-2022 Miscellaneous Notes* Telephone Encounter - Erin Redd [...] AND [3] new-onset Protocols used: Confusion - [id number] documented in this encounterSelect Medical [facility] [place]07-19-2022 Miscellaneous Notes* Telephone Encounter - Xi Worley APRN.DOMINGO - 05/13/2022 10:18 AM EDT Noted. Xi Worley APRN.DOMINGO * Telephone Encounter - Genevieve Lopez MA - 05/13/2022 9:36 AM EDT x3 attempt. Unable to reach patient. Contacted DDHilaria Thomas & confirmed with sterile technician patient picked up medication 05/11/22 @ [...] patient receive this message? Xi Worley APRN.CNP * Telephone Encounter - Miguelina Olmstead LPN [...] Worley APRN.CNP documented in this encounterSelect Medical [facility] [place]07-13-2022 Miscellaneous Notes* Telephone Encounter - Curtis Yi [...] Orellana LPN documented in this encounterSelect Medical [facility] [place]07-12-2022 Miscellaneous Notes* Telephone Encounter - Xi Worley APRN.CNP - 05/06/2022 9:17 AM EDT See office notes. Xi Worley APRN.CNP * Telephone Encounter - Maddie Rojo LPN - 05/06/2022 8:05 AM EDT Pt called in and states wheezing, coughing x 3 days. No apt available today with pcp/team/Int med. Apt booked with FP. Maddie Rojo LPN documented in this encounterSelect Medical [facility] [place]07-12-2022 Instructions* Patient Instructions* Xi Worley APRN.DOMINGO - 05/06/2022 9:05 AM EDT 1. Get the xray. 2. Start the prednisone -- 2 pills daily X 5 days. 3. Watch sugars. Let us know if getting high. 4. Push fluids. 5. Let us know if not improving or getting worse. documented in this encounterSelect Medical [facility] [place]07-12-2022 History of Present illness Narrative* Xi Worley APRN.DOMINGO - 05/06/2022 8:49 AM EDT This is [...] Right shoulder s/p fall with reduction at [facility] Type II or unspecified type diabetes [...] hours as needed for wheezing/shortness of breath. 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 Xi Worley APRN.DOMINGO documented in this encounterSelect Medical [facility] [place]06-24-2022 Miscellaneous Notes* Telephone Encounter - Joon Lopez [...] Baig Pss documented in this encounterSelect Medical [facility], [place]05-31-2022 History of Present illness Narrative* Joon Lopez MD - 03/25/2022 3:47 PM EDT This note was created using [employer]. Subjective Keisha Red is a 77 year [...] Right shoulder s/p fall with reduction at [facility] Type II or unspecified type diabetes mellitus without mention of complication, not stated as uncontrolled Unspecified asthma(493.90) Unspecified essential hypertension Current Outpatient Medications Medication Sig albuterol HFA (PROAIR HFA) 90 mcg/actuation inhaler Inhale 2 Puffs as instructed every 4 hours as needed for wheezing/shortness of breath. 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 Encounter for long-term current use of medication - ICD9: V58.69, ICD10: Z79.899 - CBC 6. Atrial flutter, unspecified type (HCC) - ICD9: 427.32, ICD10: I48.92 stable on meds Joon Lopez MD documented in this encounterSelect Medical [facility] [place]03-25-2022 History of Present illness Narrative* Joon Lopez MD - 01/17/2022 10:50 AM EDT This note was created using [employer]. Subjective Keisha Red is a 76 year [...] Right shoulder s/p fall with reduction at [facility] Type II or unspecified type diabetes [...] hours as needed for wheezing/shortness of breath. 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 Subjective Keisha Red is a 76 year old female. Patient presents with: Recheck: 2 month follow up SUBJECTIVE: Keisha Red is a 76 year old year old lady here today for 2 month follow up appointment for review of medical conditions. Overall doing okay. Back pain with weather changes. Goes to [facility] for INRs. Not following with orthopedic shoe fitter. Has not gotten COVID vaccine. Will see urologist in [place] next week. Will see eye doctor soon. [...] Right shoulder s/p fall with reduction at [facility] Type II or unspecified type diabetes mellitus without mention of complication, not stated as uncontrolled Unspecified asthma(493.90) Unspecified essential hypertension Current Outpatient Medications Medication Sig oxyCODONE-acetaminophen (PERCOCET) 5-325 mg tablet Take 5-325 mg by mouth twice daily. As needed albuterol HFA (PROAIR HFA) 90 mcg/actuation inhaler Inhale 2 Puffs as instructed every 4 hours as needed for wheezing/shortness of breath. 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) cyclobenzaprine (FLEXERIL) 10 mg tablet Take [...] - Moderate documented in this encounterSelect Medical [facility] [place]06-07-2019 Evaluation note* Diagnosis Onset Date Resolution Status Asthma chronic Essential hypertension acute Atrial fibrillation chronic Hyperlipidemia chronic Presence of permanent cardiac pacemaker April 01, 2019 chronic S/P ablation of atrial flutter April 01, 2019 resolved [facility] Work Phone: 1(264) 810-477306-07-2019 Evaluation note* Diagnosis Onset Date Resolution Status Cardiac murmur acute Atrial fibrillation chronic Hyperlipidemia chronic Presence of permanent cardiac pacemaker April 01, 2019 chronic S/P ablation of atrial flutter April 01, 2019 resolved [facility] Work Phone: 1(709) 348-347606-07-2019 Evaluation note* Diagnosis Onset Date Resolution Status Cardiac murmur acute Atrial fibrillation chronic Hyperlipidemia chronic Presence of permanent cardiac pacemaker April 01, 2019 chronic S/P ablation of atrial flutter April 01, 2019 resolved Asthma chronic Obesity chronic RAMESH (obstructive sleep apnea) [facility] Work Phone: 1(668) 648-261906-07-2019 Evaluation note* Diagnosis Onset Date Resolution Status Cardiac murmur acute Atrial fibrillation chronic Hyperlipidemia chronic Presence of permanent cardiac pacemaker April 01, 2019 chronic S/P ablation of atrial flutter April 01, 2019 resolved Asthma chronic Obesity chronic RAMESH (obstructive sleep apnea) chronic Acute confusion acute Ataxia acute Confusion acute COVID-19 acute [facility] Work Phone: 1(593) 355-705906-07-2019 Evaluation note* Diagnosis Onset Date Resolution Status [...] resolved Asthma chronic RAMESH (obstructive sleep apnea) [facility] Work Phone: 1(441) 547-919706-07-2019 Evaluation note* Diagnosis Onset Date Resolution Status Cervical strain, acute acute Atrial fibrillation chronic Hyperlipidemia chronic Presence of permanent cardiac pacemaker April 01, 2019 chronic S/P ablation of atrial flutter April 01, 2019 resolved Presence of permanent cardiac pacemaker April 01, 2019 chronic S/P ablation of atrial flutter April 01, 2019 resolved Asthma chronic RAMESH (obstructive sleep apnea) [facility] Work Phone: 1(954) 728-276406-07-2019 Evaluation note* Diagnosis Onset Date Resolution Status Asthma chronic Presence of permanent cardiac pacemaker April 01, 2019 chronic S/P ablation of atrial flutter April 01, 2019 resolved [facility] Work Phone: 1(474) 414-475206-07-2019 Evaluation note* Diagnosis Onset Date Resolution Status [...] chronic Type 2 diabetes mellitus chr onic [facility] Work Phone: 1([phone]) [phone] Evaluation note* Diagnosis Onset Date Resolution Status [...] left foot with fat layer exposed chronic [facility] Work Phone: 1(546) 503-624906-07-2019 Evaluation note* Diagnosis Onset Date Resolution Status [...] of atrial flutter April 01, 2019 resolved [facility] Work Phone: 1(610) 602-674606-07-2019 Evaluation note* Diagnosis Onset Date Resolution Status [...] 2019 resolved Acute URI acute Lightheadedness acute [facility] Work Phone: 1(662) 520-844906-07-2019 Evaluation note* Diagnosis Onset Date Resolution Status [...] acute Subtherapeutic international normalized ratio (INR) acute [facility] Work Phone: 1(615) 556-262612-05-2005 History of Past illness Narrative* Problem Noted Date Resolved Date Contact dermatitis and other eczema 09/29/2005 09/16/2021 Contact dermatitis and other eczema, due to unspecified cause 09/16/2021 documented as of this encounter (statuses as of 02/03/2022) [facility] History of Past illness Narrative* Problem Noted Date Resolved Date Contact dermatitis and other eczema 09/29/2005 09/16/2021 Contact dermatitis and other eczema, due to unspecified cause 09/16/2021 documented as of this encounter (statuses as of 03/31/2022) [facility] [place] History of Past illness Narrative* Problem Noted Date Resolved Date Contact dermatitis and other eczema 09/29/2005 09/16/2021 Contact dermatitis and other eczema, due to unspecified cause 09/16/2021 documented as of this encounter (statuses as of 04/10/2022) [facility] [place] History of Past illness Narrative* Problem Noted Date Resolved Date Contact dermatitis and other eczema 09/29/2005 09/16/2021 Contact dermatitis and other eczema, due to unspecified cause 09/16/2021 documented as of this encounter (statuses as of 04/18/2022) [facility] History of Past illness Narrative* Problem Noted Date Resolved Date Contact dermatitis and other eczema 09/29/2005 09/16/2021 Contact dermatitis and other eczema, due to unspecified cause 09/16/2021 documented as of this encounter (statuses as of 05/06/2022) [facility] History of Past illness Narrative* Problem Noted Date Resolved Date Contact dermatitis and other eczema 09/29/2005 09/16/2021 Contact dermatitis and other eczema, due to unspecified cause 09/16/2021 documented as of this encounter (statuses as of 05/06/2022) [facility] History of Past illness Narrative* Problem Noted Date Resolved Date Contact dermatitis and other eczema 09/29/2005 09/16/2021 Contact dermatitis and other eczema, due to unspecified cause 09/16/2021 documented as of this encounter (statuses as of 05/07/2022) [address]05-2005 History of Past illness Narrative* Problem Noted Date Resolved Date Contact dermatitis and other eczema 09/29/2005 09/16/2021 Contact dermatitis and other eczema, due to unspecified cause 09/16/2021 documented as of this encounter (statuses as of 05/13/2022) [address]05-2005 History of Past illness Narrative* Problem Noted Date Resolved Date Contact dermatitis and other eczema 09/29/2005 09/16/2021 Contact dermatitis and other eczema, due to unspecified cause 09/16/2021 documented as of this encounter (statuses as of 06/17/2022) [address]05-2005 History of Past illness Narrative* Problem Noted Date Resolved Date Contact dermatitis and other eczema 09/29/2005 09/16/2021 Contact dermatitis and other eczema, due to unspecified cause 09/16/2021 documented as of this encounter (statuses as of 07/28/2022) [place] [address]-05-2005 History of Past illness Narrative* Problem Noted Date Resolved Date Contact dermatitis and other eczema 09/29/2005 09/16/2021 Contact dermatitis and other eczema, due to unspecified cause 09/16/2021 documented as of this encounter (statuses as of 08/21/2022) [address]-2005 History of Past illness Narrative* Problem Noted Date Resolved Date Contact dermatitis and other eczema 09/29/2005 09/16/2021 Contact dermatitis and other eczema, due to unspecified cause 09/16/2021 documented as of this encounter (statuses as of 09/16/2022) [place] [address]-05-2005 History of Past illness Narrative* Problem Noted Date Resolved Date Contact dermatitis and other eczema 09/29/2005 09/16/2021 Contact dermatitis and other eczema, due to unspecified cause 09/16/2021 documented as of this encounter (statuses as of 11/20/2022) [address]05-2005 History of Past illness Narrative* Problem Noted Date Resolved Date Contact dermatitis and other eczema 09/29/2005 09/16/2021 Contact dermatitis and other eczema, due to unspecified cause 09/16/2021 documented as of this encounter (statuses as of 12/04/2022) [address]-2005 History of Past illness Narrative* Problem Noted Date Resolved Date Contact dermatitis and other eczema 09/29/2005 09/16/2021 Contact dermatitis and other eczema, due to unspecified cause 09/16/2021 documented as of this encounter (statuses as of 12/04/2022) [address]2005 History of Past illness Narrative* Problem Noted Date Resolved Date Contact dermatitis and other eczema 09/29/2005 09/16/2021 Contact dermatitis and other eczema, due to unspecified cause 09/16/2021 documented as of this encounter (statuses as of 12/26/2022) [address]-2005 History of Past illness Narrative* Problem Noted Date Resolved Date Contact dermatitis and other eczema 09/29/2005 09/16/2021 Contact dermatitis and other eczema, due to unspecified cause 09/16/2021 documented as of this encounter (statuses as of 01/26/2023) [address]-2005 History of Past illness Narrative* Problem Noted Date Resolved Date Contact dermatitis and other eczema 09/29/2005 09/16/2021 Contact dermatitis and other eczema, due to unspecified cause 09/16/2021 documented as of this encounter (statuses as of 03/27/2023) [address]2005 History of Past illness Narrative* Problem Noted Date Resolved Date Contact dermatitis and other eczema 09/29/2005 09/16/2021 Contact dermatitis and other eczema, due to unspecified cause 09/16/2021 documented as of this encounter (statuses as of 03/31/2023) [address]2005 History of Past illness Narrative* Problem Noted Date Resolved Date Contact dermatitis and other eczema 09/29/2005 09/16/2021 Contact dermatitis and other eczema, due to unspecified cause 09/16/2021 documented as of this encounter (statuses as of 04/16/2023) [address]-2005 History of Past illness Narrative* Problem Noted Date Resolved Date Contact dermatitis and other eczema 09/29/2005 09/16/2021 Contact dermatitis and other eczema, due to unspecified cause 09/16/2021 documented as of this encounter (statuses as of 04/16/2023) [address]2005 History of Past illness Narrative* Problem Noted Date Diagnosed Date Resolved Date Contact dermatitis and other eczema 09/29/2005 09/16/2021 Contact dermatitis and other eczema, due to unspecified cause 09/16/2021 documented as of this encounter (statuses as of 05/04/2023) [facility] [place]2005 History of Past illness Narrative* Problem Noted Date Diagnosed Date Resolved Date Contact dermatitis and other eczema 09/29/2005 09/16/2021 Contact dermatitis and other eczema, due to unspecified cause 09/16/2021 documented as of this encounter (statuses as of 05/12/2023) [facility] [place]-2005 History of Past illness Narrative* Problem Noted Date Diagnosed Date Resolved Date Contact dermatitis and other eczema 09/29/2005 09/16/2021 Contact dermatitis and other eczema, due to unspecified cause 09/16/2021 documented as of this encounter (statuses as of 06/03/2023) [facility] [place]2005 History of Past illness Narrative* Problem Noted Date Diagnosed Date Resolved Date Contact dermatitis and other eczema 09/29/2005 09/16/2021 Contact dermatitis and other eczema, due to unspecified cause 09/16/2021 documented as of this encounter (statuses as of 06/23/2023) [facility] [place]2005 History of Past illness Narrative* Problem Noted Date Diagnosed Date Resolved Date Contact dermatitis and other eczema 09/29/2005 09/16/2021 Contact dermatitis and other eczema, due to unspecified cause 09/16/2021 documented as of this encounter (statuses as of 07/15/2023) [facility] [place]2005 History of Past illness Narrative* Problem Noted Date Diagnosed Date Resolved Date Contact dermatitis and other eczema 09/29/2005 09/16/2021 Contact dermatitis and other eczema, due to unspecified cause 09/16/2021 documented as of this encounter (statuses as of 07/17/2023) [facility] [place]2005 History of Past illness Narrative* Problem Noted Date Diagnosed Date Resolved Date Contact dermatitis and other eczema 09/29/2005 09/16/2021 Contact dermatitis and other eczema, due to unspecified cause 09/16/2021 documented as of this encounter (statuses as of 09/10/2023) [facility] [place]2005 History of Past illness Narrative* Problem Noted Date Diagnosed Date Resolved Date Contact dermatitis and other eczema 09/29/2005 09/16/2021 Contact dermatitis and other eczema, due to unspecified cause 09/16/2021 documented as of this encounter (statuses as of 09/18/2023) [facility] [place]2005 History of Past illness Narrative* Problem Noted Date Diagnosed Date Resolved Date Contact dermatitis and other eczema 09/29/2005 09/16/2021 Obesity, unspecified 023 Last Assessment & Plan: Assessment: Body mass index is 30.11 kg/m . Contact dermatitis and other eczema, due to unspecified cause 09/16/2021 Dizziness and giddiness 08/27 documented as of this encounter (statuses as of 09/23/2023) [facility] [place]2005 History of Past illness Narrative* Problem Noted Date Diagnosed Date Resolved Date Contact dermatitis and other eczema 09/29/2005 09/16/2021 Obesity, unspecified 023 Last Assessment & Plan: Assessment: Body mass index is 30.11 kg/m . Contact dermatitis and other eczema, due to unspecified cause 09/16/2021 Dizziness and giddiness 08/27 documented as of this encounter (statuses as of 09/30/2023) [facility] [place]2005 History of Past illness Narrative* Problem Noted Date Diagnosed Date Resolved Date Contact dermatitis and other eczema 09/29/2005 09/16/2021 Obesity, unspecified 023 Last Assessment & Plan: Assessment: Body mass index is 30.11 kg/m . Contact dermatitis and other eczema, due to unspecified cause 09/16/2021 Dizziness and giddiness 08/27 documented as of this encounter (statuses as of 12/15/2023) [facility] [place]2005 History of Past illness Narrative* Problem Noted Date Diagnosed Date Resolved Date Contact dermatitis and other eczema 09/29/2005 09/16/2021 Obesity, unspecified 023 Last Assessment & Plan: Assessment: Body mass index is 30.11 kg/m . Contact dermatitis and other eczema, due to unspecified cause 09/16/2021 Dizziness and giddiness 08/27 documented as of this encounter (statuses as of 01/06/2024) [facility] [place]2005 History of Past illness Narrative* Problem Noted Date Diagnosed Date Resolved Date Contact dermatitis and other eczema 09/29/2005 09/16/2021 Obesity, unspecified 023 Last Assessment & Plan: Assessment: Body mass index is 30.11 kg/m . Contact dermatitis and other eczema, due to unspecified cause 09/16/2021 Dizziness and giddiness 08/27 documented as of this encounter (statuses as of 01/29/2024) [facility] Abdifatah Lemon [facility] May 09, 2023 10:54am Note Date/Time May 09, 2023 10:5 2am [facility] Medical Records Department [address] [place] [address] Emergency Department Summary 05/09/23 MR#: [id number] Acct: [id number] Name: KEISHA RED Rep #:[id number] : 1945 78 From: Abdifatah Lemon MD PCP: Dr. 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 THUS, , THU atorvastatin 10 MG tablet 10 [...] Q6 Qty: 28 0RF Primary Care Provider: Joon Lopez Referrals: [...] your Primary Care Provider. Call [facility] ([phone]) or report to the closest Emergency Room. Call 911 if necessary. 05/09/23 1054 <Electronically signed by Abdifatah Lemon MD> Cosigner Signature (if applicable): CC: Dr. Joon Lopez MD ~ Signed [facility] Work Phone: Discharge summary Author Freddy Robert [facility] October 02, 2023 1:03am Note Date/Time October 02, 2023 1 2:05am [facility] Medical Records Department [address] [place] [address] Emergency Department Summary 10/02/23 MR#: [id number] Acct: [id number] Name: KEISHA RED Rep #:[id number] : 1945 78 From: Freddy Robert MD [...] hypertension Hx of bladder infections Hyperlipidemia Hypersomnia [facility] (current) use of anticoagulants Obesity RAMESH (obstructive [...] % (Auto) 59.6 Lymph % (Auto) 26.2 [place] % (Auto) 7.6 Eos % (Auto) 4.9 [...] your Primary Care Provider. Call [facility] ([phone]) or report to the closest Emergency Room. Call 911 if necessary. 10/02/23 0103 <Electronically signed by Freddy Robert MD> Cosigner Signature (if applicable): CC: Dr. Joon Lopez MD ~ Signed [facility] Work Phone: Discharge summary Author Devyn Samaniego [facility] January 22, 2024 7:44am Note Date/Time January 22, 2024 7:4 4am [facility] Medical Records Department [address] [place] [address] Instructions for Home/Discharge Instructions 01/22/24 0743 MR#: [id number] Acct: [id number] Name: KEISHA RED Rep #:[id number] : 1945 78 From: Devyn Samainego MD PCP: Dr. Joon Lopez MD Status: G [facility] Discharge Instructions Diet Discharge Diet: No restrictions Activity Discharge Activity: Return to Normal Activity and May Not Drive (while taking narcotic pain medications.) Dressing / Incision Call your doctor if you observe: Fever of 101 or Higher Follow Up Care Please Follow Up With: Devyn Samaniego MD When: Call [phone] for an appointment Test Results: Test results [...] CC: Dr. Joon Lopez MD ~ Signed [facility] Work Phone: Evaluation + Plan note No data available for this section [facility] Evaluation note* Diagnosis Controlled type 2 diabetes [...] encounter [facility] Diagnosis Controlled type 2 diabetes mellitus [...] ligament, initial encounter [facility]* Diagnosis Diabetes mellitus type 2, controlled, [...] [facility] Diagnosis Controlled type 2 diabetes mellitus without complication, without long-term current use of insulin (HCC) documented in this encounter [facility] note* Diagnosis Mild intermittent asthma with acute exacerbation- Primary Unspecified asthma, with exacerbation Viral upper respiratory tract infection Acute upper respiratory infections of unspecified site documented in this encounter [facility] note* Diagnosis Onset Date Resolution Status Asthma chronic Obesity chronic RAMESH (obstructive sleep apnea) chronic Ataxia resolved Confusion resolved [facility] Work Phone: Evaluation note* Diagnosis COVID-19 virus infection- Primary Diarrhea of infectious origin Diarrhea of presumed infectious origin Severe low back pain Lumbago DDD (degenerative disc disease), lumbar Degeneration of lumbar or lumbosacral intervertebral disc Acute pain of left knee Sprain of left knee, unspecified ligament, initial encounter documented [facility] this [facility]* Diagnosis DDD (degenerative disc disease), lumbar Degeneration of lumbar or lumbosacral intervertebral disc Acute pain of left knee Sprain of left knee, unspecified ligament, initial encounter Severe low back pain Lumbago documented in this encounter [facility] note* Diagnosis Onset Date Resolution Status Ataxia [...] of atrial flutter April 01, 2019 resolved [facility] Work Phone: Evaluation note* Diagnosis Urinary frequency- Primary [facility] Diagnosis Controlled type 2 diabetes mellitus [...] malignant neoplasms, colon documented in this encounter [facility]* Diagnosis Strain of neck muscle, initial encounter- Primary Severe low back pain Lumbago DDD (degenerative disc disease), lumbar Degeneration of lumbar or lumbosacral intervertebral disc Encounter for therapeutic drug monitoring documented in this encounter [facility] note* Diagnosis Back strain, subsequent encounter- Primary [...] (HCC) [facility] Diagnosis Controlled type 2 diabetes mellitus [...] this encounter [facility] note* Diagnosis Cellulitis of foot- Primary Cellulitis and abscess of foot, except toes Partial thickness burn of left foot, subsequent encounter Controlled type 2 diabetes mellitus without complication, without long-term current use of insulin (HCC) [facility] Diagnosis Back strain, sequela Severe low back pain Lumbago DDD (degenerative disc disease), lumbar Degeneration of lumbar or lumbosacral intervertebral disc documented [facility] this [facility] Diagnosis Diabetes mellitus with no complication (HCC)- Primary Type II or unspecified type diabetes mellitus without mention of complication, not stated as uncontrolled documented [facility] this [facility] Diagnosis Onset Date Resolution Status Asthma [...] left foot with fat layer exposed chronic [facility] Work Phone: Evaluation note* Diagnosis Onset [...] left foot with fat layer exposed chronic [facility] Work Phone: Evaluation note* Diagnosis DDD (degenerative disc disease), lumbar Degeneration of lumbar or lumbosacral intervertebral disc Back Strain, recurrent Sprain of unspecified site of back documented [facility] Diagnosis Mild intermittent asthma without complication Unspecified asthma [facility] Diagnosis Severe low back pain- Primary [...] (HCC) documented in this [facility]* Diagnosis Onset Date Resolution Status Essential [...] left foot with fat layer exposed chronic [facility] Work Phone: Evaluation note* Diagnosis Onset [...] Asthma chronic RAMESH (obstructive sleep apnea) chronic [facility] Work Phone: Evaluation note* Diagnosis Severe low back pain- Primary Lumbago DDD (degenerative disc disease), lumbar Degeneration of lumbar or lumbosacral intervertebral disc documented [facility] Diagnosis Onset Date Resolution Status Essential [...] mass acute UTI (urinary tract infection) acute [facility] Work Phone: Evaluation note* Diagnosis Urinary incontinence without sensory awareness- Primary Incontinence without sensory awareness Memory deficits Memory loss Dysuria Nocturia more than twice per night Urinary urgency Urgency of urination Atrial flutter, unspecified type ([facility]) Encounter for immunization Need for other specified prophylactic vaccination against single bacterial disease [facility] Diagnosis Near syncope- Primary Syncope and collapse Urinary incontinence without sensory awareness Incontinence without sensory awareness Persistent disorder of initiating or maintaining sleep Hydronephrosis, right Hydronephrosis Dehydration [facility] Diagnosis Asymptomatic postmenopausal state- Primary Screening for osteoporosis Special screening for osteoporosis Closed fracture of elbow, unspecified laterality, sequela documented [facility] this [facility]* Diagnosis Controlled type 2 diabetes mellitus without complication, without long-term current use of insulin ([facility])- Primary Loose stools Abnormal feces Cognitive impairment Unspecified persistent mental disorders due to conditions classified elsewhere Anticoagulated on Coumadin Encounter for therapeutic drug monitoring Atrial flutter, unspecified type ([facility]) Vitamin D deficiency Unspecified vitamin D deficiency Encounter for therapeutic drug monitoring documented [facility] this [facility] Diagnosis B12 deficiency- Primary Other B-complex deficiencies Hypomagnesemia Disorders of magnesium metabolism Vitamin D deficiency Unspecified vitamin D deficiency [facility]* Diagnosis Hallucinations, unspecified- Primary Generalized weakness Other malaise and fatigue documented [facility] this [facility] Diagnosis Severe low back pain- Primary Lumbago DDD (degenerative disc disease), lumbar Degeneration of lumbar or lumbosacral intervertebral disc documented in this [facility] Diagnosis Rib pain on right side Chest pain, unspecified Severe low back pain Lumbago DDD (degenerative disc disease), lumbar Degeneration of lumbar or lumbosacral intervertebral disc documented [facility] this [facility] Diagnosis HYPERTENSION NOS- Primary Unspecified essential [...] loss documented [facility] Diagnosis HYPERTENSION NOS- Primary Unspecified essential [...] long-term current use of insulin ([facility]) Class 1 obesity due to excess calories with body mass index (BMI) of 30.0 to 30.9 in adult, unspecified whether serious comorbidity present Confusion- Primary Unspecified psychosis Severe low back pain Lumbago Memory deficit Memory loss Controlled type 2 diabetes mellitus without complication, without long-term current use of insulin ([facility]) Pacemaker Cardiac pacemaker in situ documented [facility] this encounter [facility] Diagnosis HYPERTENSION NOS- Primary Unspecified essential [...] complication Unspecified asthma [facility]* Diagnosis HYPERTENSION NOS- Primary Unspecified essential [...] this encounter [facility] note* Diagnosis HYPERTENSION NOS- Primary Unspecified essential [...] of unspecified site [facility] this [facility]* Diagnosis HYPERTENSION NOS- Primary Unspecified essential [...] long-term current use of insulin ([facility]) documented in this encounter [facility] note* Diagnosis HYPERTENSION NOS- Primary Unspecified essential [...] site not specified [facility]* Diagnosis HYPERTENSION NOS- Primary Unspecified essential [...] this encounter [facility] note* Diagnosis HYPERTENSION NOS- Primary Unspecified essential [...] therapeutic drug monitoring documented [facility] this encounter [facility]* Diagnosis HYPERTENSION NOS- Primary Unspecified essential [...] long-term current use of insulin ([facility]) Class 1 obesity due to excess calories with body mass index (BMI) of 30.0 to 30.9 in adult, unspecified whether serious comorbidity present Cognitive impairment, mild, so stated Mild cognitive impairment, so stated [facility] Diagnosis HYPERTENSION NOS- Primary Unspecified essential [...] long-term current use of insulin ([facility]) Class 1 obesity due to excess calories with body mass index (BMI) of 30.0 to 30.9 in adult, unspecified whether serious comorbidity present Mild dementia without behavioral disturbance, psychotic disturbance, mood disturbance, or anxiety, unspecified dementia type (HCC)- Primary Depression, unspecified depression type RAMESH (obstructive sleep apnea) Obstructive sleep apnea (adult) (pediatric) documented [facility] [facility]* Diagnosis HYPERTENSION NOS- Primary Unspecified essential [...] this encounter [facility] note* Diagnosis HYPERTENSION NOS- Primary Unspecified essential [...] this encounter [facility] note* Diagnosis HYPERTENSION NOS- Primary Unspecified essential [...] depressive disorder (HCC) [facility] Diagnosis HYPERTENSION NOS- Primary Unspecified essential [...] unspecified- Primary Dysuria documented in this encounter [facility] note* Diagnosis HYPERTENSION NOS- Primary Unspecified essential [...] Confusion Unspecified psychosis documented in this encounter [facility] note* Diagnosis HYPERTENSION NOS- Primary Unspecified essential [...] this encounter [facility] note* Diagnosis HYPERTENSION NOS- Primary Unspecified essential [...] this encounter [facility] note* Diagnosis HYPERTENSION NOS- Primary Unspecified essential [...] this encounter [facility] note* Diagnosis HYPERTENSION NOS- Primary Unspecified essential [...] adult, unspecified whether serious comorbidity present 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 behavioral disturbance, psychotic disturbance, mood disturbance, or anxiety (HCC)- Primary Depression, unspecified depression type documented in this encounter [facility] noteNo assessment information availableWSelect Medical [facility] Work Phone: History and physical note Author Devyn Samaniego [facility] January 22, 2024 7:43am Note Date/Time January 22, 2024 7:4 3am [facility] Medical Records Department [address] [place] [address] History & Physical Exam 01/22/24 0743 MR#: [id number] Acct: [id number] Name: KEISHA RED Rep #:[id number] : 1945 78 From: Devyn Samaniego MD PCP: Dr. 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 Will doa complete check of the kidney and decide what is the best definitive therapy for her. 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 Joon Lopez MD~ Signed [facility] Work Phone: History and physical note Author [facility] January 29, 2024 5:11pm Note Date/Time January 29, 2024 4:36 pm [facility] Medical Records Department [address] [place] [address] H&P Exam - Hospitalist 01/29/24 1635 MR#: [id number] Acct: [id number] Name: KEISHA RED Rep #:[id number] : 1945 78 From: Josesito Rico PCP: [...] pressure shortness of breath or abdominal pain [facility] Medical History Allergic rhinitis Arthritis Asthma [...] of bladder infections Hydronephrosis, right Hyperlipidemia Hypersomnia 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 IV fluid normal saline. Orthostatic blood pressure [...] shock if needed Total time spent in [id number] encounter in discussion of advanced directive 17 [...] the brain. Charges/Coding Visit Charges Inpatient E&M: 88850 Init Hosp L2 Procedures Hospitalists Procedures: 08168 Advncd Care Plan 30 Min 01/29/24 1711 <Electronically signed by Josesito Miller MD> Cosigner Signature (if applicable): CC: Dr. Joon Lopez MD; Dr. Josesito Miller MD~ Signed [facility] Work Phone: Hospital Discharge instructions Additional [...] working against the infection. Tylenol Motrin for pain.[facility] Work Phone: Hospital Discharge instructions Additional Instructions Wet-to-dry dressing changes 6 times a day.[facility] Work Phone: Hospital Discharge instructions Additional Instructions Im[facility] Used?: [facility] [place] Work Phone: Hospital Discharge instructions Additional Instructions Follow-up with your pain management doctor soon as possible. Take your Percocet as previously directed for pain. Return with new or worsening symptoms. Your x-rays were negative for fracture today, but you do have arthritis in your left shoulder.[facility] Work Phone: Refpts for referral (narrative)* Diagnostic Procedure Only (Routine) - Pending Review Specialty Diagnoses / Procedures Referred By Contac t Referred To Contact XR IMAGING Diagnoses Asymptomatic postmenopausal state Screening for osteoporosis Closed fracture of elbow, unspecified laterality, sequela Procedures DXA-AXIAL SKELETON Trini Tang, JOSE DANIEL.PACKAGING OPERATOR [address] [place] [address] [place] [address] Referral ID Status Reason Start Date Expiration Date Visits Requested Visits Authorized [id number] Pending Review Auto-Generat ed Referral 03/18/2024 04/16/2025 1 1 [facility] for referral (narrative)No reason for referral information availableWSelect Medical [facility] Work Phone: Rencnf for visit Narrative* Diagnostic Procedure Only (Routine) - Closed Specialty Diagnoses / Procedures Referred By Contac t Referred To Contact Radiology / [facility] Diagnoses Acute upper respiratory infection, unspecified ML Procedures RADIOLOGIC EXAM CHEST 2 VIEWS XR CHEST Xi Worley, 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.MANAGER FRONT [address] [place] [address] [facility] [address] [place] [address] Referral ID Status Reason Start Date Expiration Date Visits Re quested Visits Authorized [id number] Closed 05/06/2022 10/25/2022 1 1 [facility] for visit Narrative* Diagnostic Procedure Only (Routine) - Closed Specialty Diagnoses / Procedures Referred By Contac t Referred To Contact XR IMAGING Diagnoses Chronic pain of left knee Chronic pain of right knee Procedures XR KNEE GENERAL 4V AP BOTH/PA BOTH/LAT/MERC RIGHT RADIOLOGIC EXAM KNEE COMPLETE 4/MORE VIEWS Whitney Hammond, 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.MANAGER FRONT [address] [place] [address] Phone: tel: fax: [place] [address] Referral ID Status Reason Start Date Expiration Date V isits Requested Visits Authorized [id number] Closed Auto-Generate d Referral 03/13/2025 04/12/2026 1 1 [facility] Summary Purpose Family History No Family History Records Found Relationship Condition Age at Onset Recorded Date/T cindy mother Diabetes mellitus Unknown father Coronary artery disease Unknown sister Malignant neoplasm of lung Unknown son Calculus of kidney Unknown Advance Directives No Advanced Directives Records Found Advance Directive Response Recorded Date/ Time Advance Directives Yes March 17 11:27am Living Will No June 08 8:12pm Power of Data Specialist No June 08 8:12pm Documents on File Type Date Recorded Patient Deliver Driver Expl anation Advance Directive(s) 01/23/2021 8:35 AM Advance Directive(s) 01/11/2021 11:10 AM Advance Directive Response Recorded Date/ Time Advance Directives Yes March 17 11:27am Living Will No June 16 9:41pm Power of Data Specialist No June 16 9:41pm Advance Directive Response Recorded Date/ Time Advance Directives Yes March 17 8 11:27am Living Will No June 17 2:33pm Power of Data Specialist No June 17 2:33pm Advance Directive Response Recorded Date/ Time Name of Medical Power of Data Specialist Brooke Zazueta n June 17, 2022 11:42pm Advance Directives Yes March 17 8 11:27am Living Will Yes June 17 11:42pm Power of Data Specialist Yes June 17 11:42pm Advance Directive Response Recorded Date/ Time Name of Medical Power of Data Specialist brooke zazueta n-daughter June 18, 2022 4:38am Advance Directives Yes March 17 8 11:27am Living Will Yes June 18 2 4:38am Power of Data Specialist Yes June 18 4:38am Advance Directive Response Recorded Date/ Time Name of Medical Power of Data Specialist brooke zazueta n-daughter June 18, 2022 4:38am Name of Medical Power of Data Specialist daughter July 31, 2022 11:27am Advance Directives Yes March 17 8 11:27am Living Will Yes July 31 11:27am Power of Data Specialist Yes July 31 11:27am Advance Directive Response Recorded Date/ Time Name of Medical Power of Data Specialist brooke zazueta n-daughter June 18, 2022 3:38am Name of Medical Power of Data Specialist daughter July 31, 2022 10:27am Advance Directives Yes March 17 8 10:27am Living Will Yes July 31 10:27am Power of Data Specialist Yes July 31 10:27am Advance Directive Response Recorded Date/ Time Name of Medical Power of Data Specialist daughter July 31, 2022 10:27am Advance Directives Yes March 17 8 10:27am Living Will Yes July 31 10:27am Power of Data Specialist Yes July 31 10:27am Advance Directive Response Recorded Date/ Time Advance Directives Yes March 17 8 10:27am Living Will Yes July 31 10:27am Power of Data Specialist Yes July 31 10:27am Advance Directive Response Recorded Date/ Time Name of Medical Power of Data Specialist marni March 18, 2023 11:06am Advance Directives Yes March 17 8 11:27am Living Will Yes March 18, 2023 1 1:06am Power of Data Specialist Yes March 18, 2023 11:06am Advance Directive Response Recorded Date/ Time Name of Medical Power of Data Specialist marni March 18, 2023 11:06am Name of Medical Power of Data Specialist Brooke Zazueta n May 09, 2023 10:07am Advance Directives Yes March 17 8 11:27am Living Will Yes May 09, 2023 10:07am Power of Data Specialist Yes May 09 10:07am Advance Directive Response Recorded Date/ Time Name of Medical Power of Data Specialist marni March 18, 2023 11:06am Name of Medical Power of Data Specialist Brooke Zazueta n May 09, 2023 10:07am Name of Medical Power of Data Specialist ? May 21, 2023 11:43am Advance Directives Yes March 17 8 11:27am Living Will Yes May 21, 2023 11:43am Power of Data Specialist Yes May 21 11:43am Advance Directive Response Recorded Date/ Time Name of Medical Power of Data Specialist Brooke Zazueta n May 09, 2023 10:07am Name of Medical Power of Data Specialist ? May 21, 2023 11:43am Advance Directives Yes March 17 8 11:27am Living Will Yes May 21, 2023 11:43am Power of Data Specialist Yes May 21 11:43am Advance Directive Response Recorded Date/ Time Advance Directives Yes March 17 8 10:27am Living Will No September 01 3:30pm Power of Data Specialist No September 01, 2023 3:30pm Name of Medical Power of Data Specialist Brooke Zazueta n May 09, 2023 9:07am Name of Medical Power of Data Specialist ? May 21, 2023 10:43am Advance Directive Response Recorded Date/ Time Advance Directives Yes March 17 8 10:27am Living Will No October 01 11:33pm Power of Data Specialist No October 01, 2023 11:33pm Advance Directive Response Recorded Date/ Time Advance Directives Yes March 17 8 10:27am Living Will No November 09 2:48pm Power of Data Specialist No November 09, 2023 2:48pm Advance Directive Response Recorded Date/ Time Advance Directives Yes March 17 8 10:27am Living Will No November 28 10:50pm Power of Data Specialist No November 28, 2023 10:50pm Advance Directive Response Recorded Date/ Time Name of Medical Power of Data Specialist brooke zazueta n December 30, 2023 12:08am Advance Directives Yes March 17 8 10:27am Living Will Yes December 30, 2023 12:08am Power of Data Specialist Yes December 29 12:08am Advance Directive Response Recorded Date/ Time Name of Medical Power of Data Specialist brooke zazueta n December 30, 2023 1:08am Name of Medical Power of Data Specialist DAUGHTERS January 13, 2024 10:14am Advance Directives Yes March 17 8 11:27am Living Will Yes January 13, 2024 10:14am Power of Data Specialist Yes January 12 10:14am Advance Directive Response Recorded Date/ Time Name of Medical Power of Data Specialist brooke guzman December 30, 2023 1:08am Name of Medical Power of Data Specialist DAUGHTERS January 13, 2024 10:14am Name of Medical Power of Data Specialist POCatia, daughters January 29, 2024 1:37pm Advance Directives Yes March 17 8 11:27am Living Will Yes January 29, 2024 1:37pm Power of Data Specialist Yes January 28 1:37pm Advance Directive Response Recorded Date/ Time Name of Medical Power of Data Specialist brooke guzman December 30, 2023 1:08am Name of Medical Power of Data Specialist DAUGHTERS January 13, 2024 10:14am Name of Medical Power of Data Specialist ROSALIO, daughters January 29, 2024 5:33pm Advance Directives Yes March 17 8 11:27am Living Will Yes January 29, 2024 5:33pm Power of Data Specialist Yes January 28 5:33pm Advance Directive Response Recorded Date/ Time Living Will Yes June 16 10:43pm Power of Data Specialist Yes June 16, 10:43pm Living Will No August 25 8:49pm Power of Data Specialist No August 25, 2024 8:49pm Living Will No September 25 12:41am Power of Data Specialist No September 25, 2024 12:41am Living Will Yes January 04, 2025 6:20pm Power of Data Specialist Yes January 04 6:20pm Name of Medical Power of Data Specialist ? January 04, 2025 6:20pm Advance Directives No June 12:17pm Advance Directive Response Recorded Date/ Time Living Will Yes June 16 10:43pm Do you have a Healthcare Power of Data Specialist? Yes June 16, 2024 10:43pm Living Will No November 26 2:35am Do you have a Healthcare Power of Data Specialist? No November 26, 2024 2:35am Living Will No September 25 12:41am Do you have a Healthcare Power of Data Specialist? No September 25, 2024 12:41am Living Will Yes January 04, 2025 6:20pm Do you have a Healthcare Power of Data Specialist? Yes January 04, 2025 6:20pm Name of Medical Power of Data Specialist ? January 04, 2025 6:20pm Advance Directives No June 12:17pm Advance Directive Response Recorded Date/ Time Living Will Yes June 16 10:43pm Do you have a Healthcare Power of Data Specialist? Yes June 16, 2024 10:43pm Living Will No November 26 2:35am Do you have a Healthcare Power of Data Specialist? No November 26, 2024 2:35am Living Will Yes January 04, 2025 6:20pm Do you have a Healthcare Power of Data Specialist? Yes January 04, 2025 6:20pm Name of Medical Power of Data Specialist ? January 04, 2025 6:20pm Living Will No January 23, 2025 10:13pm Do you have a Healthcare Power of Data Specialist? No January 23, 2025 10:13pm Advance Directives No June 12:17pm Advance Directive Response Recorded Date/ Time Living Will No March 25, 2025 1 0:00pm Do you have a Healthcare Power of Data Specialist? No March 25, 2025 10:00pm Living Will No January 23, 2025 10:13pm Do you have a Healthcare Power of Data Specialist? No January 23, 2025 10:13pm Advance Directives [...] CVA COVID, ENCEPHALOPATHY, ? CVA SOB S/P [facility], SOB NECK PAIN X3 DAYS S/O [...] 9am S/O March 23, 2025 7:43a m Chief Complaint Admit Date S/O March 23, 2025 7:43a m S/O May 11, 2025 5:27 pm Reason for Referral Specialty Diagnoses / Procedures Referred By Contac t Referred To Contact Diagnoses Back strain, sequela Joon Lopez MD [address] [place] [address] Referral ID Status Reason Start Date Expiration Date V isits Requested Visits Authorized [id number] Authorized 12/12/2022 12/27/2023 1 1 Specialty Diagnoses / Procedures Referred By Contac t Referred To Contact [facility] Diagnoses Back strain, subsequent encounter Muscle spasm Back strain, sequela Procedures CONSULT TO PHYSICAL THERAPY PHYSICAL THERAPY EVALUATION HIGH COMPLEX 45 MINS Trini Tang, 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.PACKAGING OPERATOR [address] [place] [address] [facility] [address] [address] Referral ID Status Reason Start Date Expiration Date Visits Requested Visits Authorized [id number] Pending Review Auto-Generat ed Referral 04/16/2023 04/15/2024 1 1 Specialty Diagnoses / Procedures Referred By Contac t Referred To Contact [facility] Diagnoses Mild intermittent asthma without complication Procedures SPIROMETRY - BASELINE AND POST DILATOR BRNCDILAT RSPSE SPMTRY PRE&POST-BRNCDILAT ADMN Trini Tang, 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.PACKAGING OPERATOR [address] [place] [address] [facility] [address] [place] [id number] Referral ID Status Reason Start Date Expiration Date Visits Requested Visits Authorized [id number] Pending Review Auto-Generat ed Referral 04/16/2023 05/15/2024 1 1 Specialty Diagnoses / Procedures Referred By Contac t Referred To Contact Podiatry Diagnoses Cellulitis of foot Partial thickness burn of left foot, subsequent encounter Controlled type 2 diabetes mellitus without complication, without long-term current use of insulin (HCC) Procedures CONSULT TO PODIATRY OFFICE/OUTPATIENT [facility] 60-74 MINUTES Whitney Hammond, 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.MANAGER FRONT [address] [place] [address] Referral ID Status Reason Start Date Expiration Date Visits Requested Visits Authorized [id number] Authorized PCP Requested Referral 05/12/2023 05/11/2024 1 1 Specialty Diagnoses / Procedures Referred By Contac t Referred To Contact [facility] Diagnoses Severe low back pain DDD (degenerative disc disease), lumbar Procedures CONSULT TO [facility] OFFICE/OUTPATIENT [facility] 60 MINUTES Red LodgeTrini, 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.PACKAGING OPERATOR [address] [place] [address] Referral ID Status Reason Start Date Expiration Date Visits Requested Visits Authorized [id number] Pending Review PCP Requested Referral 12/14/2023 12/13/2024 1 1 Specialty Diagnoses / Procedures Referred By Contac t Referred To Contact Pain Management Diagnoses Severe low back pain DDD (degenerative disc disease), lumbar Procedures CONSULT TO PAIN MGT OFFICE/OUTPATIENT [facility] 60 MINUTES Red LodgeTrini, 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.PACKAGING OPERATOR [address] [place] [address] Referral ID Status Reason Start Date Expiration Date Visits Requested Visits Authorized [id number] Pending Review PCP Requested Referral 06/02/2024 06/01/2025 1 1 Specialty Diagnoses / Procedures Referred By Contac t Referred To Contact Gerontology / INTERNAL MEDICINE Diagnoses Cognitive impairment Memory deficit Procedures CONSULT TO GERIATRICS OFFICE/OUTPATIENT [facility] 60 MINUTES Joon Lopez MD [address] [place] [address] Xochitl Castrejon MD [address] [place] [id number] Referral ID Status Reason Start Date Expiration Date Visits Requested Visits Authorized [id number] Authorized PCP Requested Referral 05/13/2024 10/25/2024 1 1 Specialty Diagnoses / Procedures Referred By Contac t Referred To Contact Joon Lopez MD [address] [place] [id number] Referral ID Status Reason Start Date Expiration Date V isits Requested Visits Authorized [id number] Authorized 04/27/2024 05/12/2025 1 1 Specialty Diagnoses / Procedures Referred By Contac t Referred To Contact MR IMAGING Diagnoses Cognitive impairment, mild, so stated Procedures MRI 3D POST PROCESSING 3D RENDERING W/INTERP&POSTPROC DIFF WORK STATION Xochitl Castrejon MD [address] [place] [address] [place] [address] Referral ID Status Reason Start Date Expiration Date Visits Requested Visits Authorized [id number] New Request Auto-Generat ed Referral 08/03/2024 09/02/2025 1 1 Specialty Diagnoses / Procedures Referred By Contac t Referred To Contact MR IMAGING Diagnoses Cognitive impairment, mild, so stated Procedures MRI BRAIN W QUANT WO IVCON MRI BRAIN BRAIN STEM W/O CONTRAST MATERIAL Xochitl Castrejon MD [address] [place] [address] [place] [address] Referral ID Status Reason Start Date Expiration Date Visits Requested Visits Authorized [id number] New Request Auto-Generat ed Referral 08/03/2024 09/02/2025 1 1 Additional Source Comments INFORMATION SOURCE (unrecogn ized section and content) DATE CREATED AUTHOR 2021 [facility] DATE CREATED AUTHOR AUTHOR'S ORGANIZ ATION 02/04/2024 [facility] DATE CREATED AUTHOR AUTHOR'S ORGANIZ ATION 09/30/2024 [facility] DATE CREATED AUTHOR AUTHOR'S ORGANIZ ATION 05/15/2025 [facility] DATE CREATED AUTHOR AUTHOR'S ORGANIZ ATION 05/28/2025 [facility] Goals (unrecognized section and content) Goals [...] any alcohol or drug abuse patient.[facility]onIn the event this information is protected by the Federal Confidentiality of Alcohol and Drug Abuse Patient Records regulations: The Federal rules restrict any use of the information to criminally investigate or prosecute any alcohol or drug abuse patient.[facility]on[facility] the event this information is protected by the Federal Confidentiality of Alcohol and Drug Abuse Patient Records regulations: The Federal rules restrict any use of the information to criminally investigate or prosecute any alcohol or drug abuse patient.[facility] the event this information is protected by the Federal Confidentiality of Alcohol and Drug Abuse Patient Records regulations: The Federal rules restrict any use of the information to criminally investigate or prosecute any alcohol or drug abuse patient.[facility] the event this information is protected by the Federal Confidentiality of Alcohol and Drug Abuse Patient Records regulations: The Federal rules restrict any use of the information to criminally investigate or prosecute any alcohol or drug abuse patient.[facility] the event this information is protected by the Federal Confidentiality of Alcohol and Drug Abuse Patient Records regulations: The Federal rules restrict any use of the information to criminally investigate or prosecute any alcohol or drug abuse patient.[facility]onIn the event this information is protected by the Federal Confidentiality of Alcohol and Drug Abuse Patient Records regulations: The Federal rules restrict any use of the information to criminally investigate or prosecute any alcohol or drug abuse patient.[facility]on[facility] the event this information is protected by the Federal Confidentiality of Alcohol and Drug Abuse Patient Records regulations: The Federal rules restrict any use of the information to criminally investigate or prosecute any alcohol or drug abuse patient.[facility]onIn the event this information is protected by the Federal Confidentiality of Alcohol and Drug Abuse Patient Records regulations: The Federal rules restrict any use of the information to criminally investigate or prosecute any alcohol or drug abuse patient.[facility]onIn the event this information is protected by the Federal Confidentiality of Alcohol and Drug Abuse Patient Records regulations: The Federal rules restrict any use of the information to criminally investigate or prosecute any alcohol or drug abuse patient.[facility]onIn the event this information is protected by the Federal Confidentiality of Alcohol and Drug Abuse Patient Records regulations: The Federal rules restrict any use of the information to criminally investigate or prosecute any alcohol or drug abuse patient.[facility], [place]In the event this information is protected by the Federal Confidentiality of Alcohol and Drug Abuse Patient Records regulations: The Federal rules restrict any use of the information to criminally investigate or prosecute any alcohol or drug abuse patient.[facility], [place]In the event this information is protected by the Federal Confidentiality of Alcohol and Drug Abuse Patient Records regulations: The Federal rules restrict any use of the information to criminally investigate or prosecute any alcohol or drug abuse patient.[facility], [place]In the event this information is protected by the Federal Confidentiality of Alcohol and Drug Abuse Patient Records regulations: The Federal rules restrict any use of the information to criminally investigate or prosecute any alcohol or drug abuse patient.[facility], [place]In the event this information is protected by the Federal Confidentiality of Alcohol and Drug Abuse Patient Records regulations: The Federal rules restrict any use of the information to criminally investigate or prosecute any alcohol or drug abuse patient.[facility], [place]In the event this information is protected by the Federal Confidentiality of Alcohol and Drug Abuse Patient Records regulations: The Federal rules restrict any use of the information to criminally investigate or prosecute any alcohol or drug abuse patient.[facility], [place]In the event this information is protected by the Federal Confidentiality of Alcohol and Drug Abuse Patient Records regulations: The Federal rules restrict any use of the information to criminally investigate or prosecute any alcohol or drug abuse patient.[facility], [place]In the event this information is protected by the Federal Confidentiality of Alcohol and Drug Abuse Patient Records regulations: The Federal rules restrict any use of the information to criminally investigate or prosecute any alcohol or drug abuse patient.[facility], [place]In the event this information is protected by the Federal Confidentiality of Alcohol and Drug Abuse Patient Records regulations: The Federal rules restrict any use of the information to criminally investigate or prosecute any alcohol or drug abuse patient.[facility], [place]In the event this information is protected by the Federal Confidentiality of Alcohol and Drug Abuse Patient Records regulations: The Federal rules restrict any use of the information to criminally investigate or prosecute any alcohol or drug abuse patient.[facility], [place]In the event this information is protected by the Federal Confidentiality of Alcohol and Drug Abuse Patient Records regulations: The Federal rules restrict any use of the information to criminally investigate or prosecute any alcohol or drug abuse patient.[facility], [place]In the event this information is protected by the Federal Confidentiality of Alcohol and Drug Abuse Patient Records regulations: The Federal rules restrict any use of the information to criminally investigate or prosecute any alcohol or drug abuse patient.[facility], [place]In the event this information is protected by the Federal Confidentiality of Alcohol and Drug Abuse Patient Records regulations: The Federal rules restrict any use of the information to criminally investigate or prosecute any alcohol or drug abuse patient.[facility], [place]In the event this information is protected by the Federal Confidentiality of Alcohol and Drug Abuse Patient Records regulations: The Federal rules restrict any use of the information to criminally investigate or prosecute any alcohol or drug abuse patient.[facility], [place]In the event this information is protected by the Federal Confidentiality of Alcohol and Drug Abuse Patient Records regulations: The Federal rules restrict any use of the information to criminally investigate or prosecute any alcohol or drug abuse patient.[facility], [place]In the event this information is protected by the Federal Confidentiality of Alcohol and Drug Abuse Patient Records regulations: The Federal rules restrict any use of the information to criminally investigate or prosecute any alcohol or drug abuse patient.[facility], [place]In the event this information is protected by the Federal Confidentiality of Alcohol and Drug Abuse Patient Records regulations: The Federal rules restrict any use of the information to criminally investigate or prosecute any alcohol or drug abuse patient.[facility], [place]In the event this information is protected by the Federal Confidentiality of Alcohol and Drug Abuse Patient Records regulations: The Federal rules restrict any use of the information to criminally investigate or prosecute any alcohol or drug abuse patient.[facility], [place]In the event this information is protected by the Federal Confidentiality of Alcohol and Drug Abuse Patient Records regulations: The Federal rules restrict any use of the information to criminally investigate or prosecute any alcohol or drug abuse patient.[facility], [place]In the event this information is protected by the Federal Confidentiality of Alcohol and Drug Abuse Patient Records regulations: The Federal rules restrict any use of the information to criminally investigate or prosecute any alcohol or drug abuse patient.[facility], [place]In the event this information is protected by the Federal Confidentiality of Alcohol and Drug Abuse Patient Records regulations: The Federal rules restrict any use of the information to criminally investigate or prosecute any alcohol or drug abuse patient.[facility], [place]In the event this information is protected by the Federal Confidentiality of Alcohol and Drug Abuse Patient Records regulations: The Federal rules restrict any use of the information to criminally investigate or prosecute any alcohol or drug abuse patient.[facility], [place]In the event this information is protected by the Federal Confidentiality of Alcohol and Drug Abuse Patient Records regulations: The Federal rules restrict any use of the information to criminally investigate or prosecute any alcohol or drug abuse patient.[facility], [place]In the event this information is protected by the Federal Confidentiality of Alcohol and Drug Abuse Patient Records regulations: The Federal rules restrict any use of the information to criminally investigate or prosecute any alcohol or drug abuse patient.[facility], [place]In the event this information is protected by the Federal Confidentiality of Alcohol and Drug Abuse Patient Records regulations: The Federal rules restrict any use of the information to criminally investigate or prosecute any alcohol or drug abuse patient.[facility], [place]In the event this information is protected by the Federal Confidentiality of Alcohol and Drug Abuse Patient Records regulations: The Federal rules restrict any use of the information to criminally investigate or prosecute any alcohol or drug abuse patient.[facility], [place]In the event this information is protected by the Federal Confidentiality of Alcohol and Drug Abuse Patient Records regulations: The Federal rules restrict any use of the information to criminally investigate or prosecute any alcohol or drug abuse patient.[facility], [place]In the event this information is protected by the Federal Confidentiality of Alcohol and Drug Abuse Patient Records regulations: The Federal rules restrict any use of the information to criminally investigate or prosecute any alcohol or drug abuse patient.[facility], [place]In the event this information is protected by the Federal Confidentiality of Alcohol and Drug Abuse Patient Records regulations: The Federal rules restrict any use of the information to criminally investigate or prosecute any alcohol or drug abuse patient.[facility], [place]In the event this information is protected by the Federal Confidentiality of Alcohol and Drug Abuse Patient Records regulations: The Federal rules restrict any use of the information to criminally investigate or prosecute any alcohol or drug abuse patient.[facility], [place]In the event this information is protected by the Federal Confidentiality of Alcohol and Drug Abuse Patient Records regulations: The Federal rules restrict any use of the information to criminally investigate or prosecute any alcohol or drug abuse patient.[facility], [place]In the event this information is protected by the Federal Confidentiality of Alcohol and Drug Abuse Patient Records regulations: The Federal rules restrict any use of the information to criminally investigate or prosecute any alcohol or drug abuse patient.[facility], [place]In the event this information is protected by the Federal Confidentiality of Alcohol and Drug Abuse Patient Records regulations: The Federal rules restrict any use of the information to criminally investigate or prosecute any alcohol or drug abuse patient.[facility], [place]In the event this information is protected by the Federal Confidentiality of Alcohol and Drug Abuse Patient Records regulations: The Federal rules restrict any use of the information to criminally investigate or prosecute any alcohol or drug abuse patient.[facility], [place]In the event this information is protected by the Federal Confidentiality of Alcohol and Drug Abuse Patient Records regulations: The Federal rules restrict any use of the information to criminally investigate or prosecute any alcohol or drug abuse patient.[facility], [place]In the event this information is protected by the Federal Confidentiality of Alcohol and Drug Abuse Patient Records regulations: The Federal rules restrict any use of the information to criminally investigate or prosecute any alcohol or drug abuse patient.[facility], [place]In the event this information is protected by the Federal Confidentiality of Alcohol and Drug Abuse Patient Records regulations: The Federal rules restrict any use of the information to criminally investigate or prosecute any alcohol or drug abuse patient.[facility], [place]In the event this information is protected by the Federal Confidentiality of Alcohol and Drug Abuse Patient Records regulations: The Federal rules restrict any use of the information to criminally investigate or prosecute any alcohol or drug abuse patient.[facility], [place]In the event this information is protected by the Federal Confidentiality of Alcohol and Drug Abuse Patient Records regulations: The Federal rules restrict any use of the information to criminally investigate or prosecute any alcohol or drug abuse patient.[facility], [place]In the event this information is protected by the Federal Confidentiality of Alcohol and Drug Abuse Patient Records regulations: The Federal rules restrict any use of the information to criminally investigate or prosecute any alcohol or drug abuse patient.[facility], [place]In the event this information is protected by the Federal Confidentiality of Alcohol and Drug Abuse Patient Records regulations: The Federal rules restrict any use of the information to criminally investigate or prosecute any alcohol or drug abuse patient.[facility], [place]In the event this information is protected by the Federal Confidentiality of Alcohol and Drug Abuse Patient Records regulations: The Federal rules restrict any use of the information to criminally investigate or prosecute any alcohol or drug abuse patient.[facility], [place]In the event this information is protected by the Federal Confidentiality of Alcohol and Drug Abuse Patient Records regulations: The Federal rules restrict any use of the information to criminally investigate or prosecute any alcohol or drug abuse patient.[facility], [place]In the event this information is protected by the Federal Confidentiality of Alcohol and Drug Abuse Patient Records regulations: The Federal rules restrict any use of the information to criminally investigate or prosecute any alcohol or drug abuse patient.[facility], [place]In the event this information is protected by the Federal Confidentiality of Alcohol and Drug Abuse Patient Records regulations: The Federal rules restrict any use of the information to criminally investigate or prosecute any alcohol or drug abuse patient.[facility], [place]In the event this information is protected by the Federal Confidentiality of Alcohol and Drug Abuse Patient Records regulations: The Federal rules restrict any use of the information to criminally investigate or prosecute any alcohol or drug abuse patient.[facility], [place]In the event this information is protected by the Federal Confidentiality of Alcohol and Drug Abuse Patient Records regulations: The Federal rules restrict any use of the information to criminally investigate or prosecute any alcohol or drug abuse patient.[facility], [place]In the event this information is protected by the Federal Confidentiality of Alcohol and Drug Abuse Patient Records regulations: The Federal rules restrict any use of the information to criminally investigate or prosecute any alcohol or drug abuse patient.[facility], [place]In the event this information is protected by the Federal Confidentiality of Alcohol and Drug Abuse Patient Records regulations: The Federal rules restrict any use of the information to criminally investigate or prosecute any alcohol or drug abuse patient.[facility], [place]In the event this information is protected by the Federal Confidentiality of Alcohol and Drug Abuse Patient Records regulations: The Federal rules restrict any use of the information to criminally investigate or prosecute any alcohol or drug abuse patient.[facility], [place]In the event this information is protected by the Federal Confidentiality of Alcohol and Drug Abuse Patient Records regulations: The Federal rules restrict any use of the information to criminally investigate or prosecute any alcohol or drug abuse patient.[facility], [place]In the event this information is protected by the Federal Confidentiality of Alcohol and Drug Abuse Patient Records regulations: The Federal rules restrict any use of the information to criminally investigate or prosecute any alcohol or drug abuse patient.[facility], [place]In the event this information is protected by the Federal Confidentiality of Alcohol and Drug Abuse Patient Records regulations: The Federal rules restrict any use of the information to criminally investigate or prosecute any alcohol or drug abuse patient.[facility], [place]In the event this information is protected by the Federal Confidentiality of Alcohol and Drug Abuse Patient Records regulations: The Federal rules restrict any use of the information to criminally investigate or prosecute any alcohol or drug abuse patient.[facility], [place]In the event this information is protected by the Federal Confidentiality of Alcohol and Drug Abuse Patient Records regulations: The Federal rules restrict any use of the information to criminally investigate or prosecute any alcohol or drug abuse patient.[facility], [place]In the event this information is protected by the Federal Confidentiality of Alcohol and Drug Abuse Patient Records regulations: The Federal rules restrict any use of the information to criminally investigate or prosecute any alcohol or drug abuse patient.[facility], [place]In the event this information is protected by the Federal Confidentiality of Alcohol and Drug Abuse Patient Records regulations: The Federal rules restrict any use of the information to criminally investigate or prosecute any alcohol or drug abuse patient.[facility], [place]In the event this information is protected by the Federal Confidentiality of Alcohol and Drug Abuse Patient Records regulations: The Federal rules restrict any use of the information to criminally investigate or prosecute any alcohol or drug abuse patient.[facility], [place]In the event this information is protected by the Federal Confidentiality of Alcohol and Drug Abuse Patient Records regulations: The Federal rules restrict any use of the information to criminally investigate or prosecute any alcohol or drug abuse patient.[facility], [place]In the event this information is protected by the Federal Confidentiality of Alcohol and Drug Abuse Patient Records regulations: The Federal rules restrict any use of the information to criminally investigate or prosecute any alcohol or drug abuse patient.[facility], [place]In the event this information is protected by the Federal Confidentiality of Alcohol and Drug Abuse Patient Records regulations: The Federal rules restrict any use of the information to criminally investigate or prosecute any alcohol or drug abuse patient.[facility], [place]In the event this information is protected by the Federal Confidentiality of Alcohol and Drug Abuse Patient Records regulations: The Federal rules restrict any use of the information to criminally investigate or prosecute any alcohol or drug abuse patient.[facility], [place]In the event this information is protected by the Federal Confidentiality of Alcohol and Drug Abuse Patient Records regulations: The Federal rules restrict any use of the information to criminally investigate or prosecute any alcohol or drug abuse patient.[facility], [place]In the event this information is protected by the Federal Confidentiality of Alcohol and Drug Abuse Patient Records regulations: The Federal rules restrict any use of the information to criminally investigate or prosecute any alcohol or drug abuse patient.[facility], [place]In the event this information is protected by the Federal Confidentiality of Alcohol and Drug Abuse Patient Records regulations: The Federal rules restrict any use of the information to criminally investigate or prosecute any alcohol or drug abuse patient.[facility], [place]In the event this information is protected by the Federal Confidentiality of Alcohol and Drug Abuse Patient Records regulations: The Federal rules restrict any use of the information to criminally investigate or prosecute any alcohol or drug abuse patient.[facility], [place]In the event this information is protected by the Federal Confidentiality of Alcohol and Drug Abuse Patient Records regulations: The Federal rules restrict any use of the information to criminally investigate or prosecute any alcohol or drug abuse patient.[facility], [place]In the event this information is protected by the Federal Confidentiality of Alcohol and Drug Abuse Patient Records regulations: The Federal rules restrict any use of the information to criminally investigate or prosecute any alcohol or drug abuse patient.[facility], [place]In the event this information is protected by the Federal Confidentiality of Alcohol and Drug Abuse Patient Records regulations: The Federal rules restrict any use of the information to criminally investigate or prosecute any alcohol or drug abuse patient.[facility], [place]In the event this information is protected by the Federal Confidentiality of Alcohol and Drug Abuse Patient Records regulations: The Federal rules restrict any use of the information to criminally investigate or prosecute any alcohol or drug abuse patient.[facility], [place]In the event this information is protected by the Federal Confidentiality of Alcohol and Drug Abuse Patient Records regulations: The Federal rules restrict any use of the information to criminally investigate or prosecute any alcohol or drug abuse patient.[facility], [place]In the event this information is protected by the Federal Confidentiality of Alcohol and Drug Abuse Patient Records regulations: The Federal rules restrict any use of the information to criminally investigate or prosecute any alcohol or drug abuse patient.[facility], [place]In the event this information is protected by the Federal Confidentiality of Alcohol and Drug Abuse Patient Records regulations: The Federal rules restrict any use of the information to criminally investigate or prosecute any alcohol or drug abuse patient.[facility], [place]In the event this information is protected by the Federal Confidentiality of Alcohol and Drug Abuse Patient Records regulations: The Federal rules restrict any use of the information to criminally investigate or prosecute any alcohol or drug abuse patient.[facility], [place]In the event this information is protected by the Federal Confidentiality of Alcohol and Drug Abuse Patient Records regulations: The Federal rules restrict any use of the information to criminally investigate or prosecute any alcohol or drug abuse patient.[facility], [place]In the event this information is protected by the Federal Confidentiality of Alcohol and Drug Abuse Patient Records regulations: The Federal rules restrict any use of the information to criminally investigate or prosecute any alcohol or drug abuse patient.[facility], [place]In the event this information is protected by the Federal Confidentiality of Alcohol and Drug Abuse Patient Records regulations: The Federal rules restrict any use of the information to criminally investigate or prosecute any alcohol or drug abuse patient.[facility] the event this information is protected by the Federal Confidentiality of Alcohol and Drug Abuse Patient Records regulations: The Federal rules restrict any use of the information to criminally investigate or prosecute any alcohol or drug abuse patient.[facility] [place] the event this information is protected by the Federal Confidentiality of Alcohol and Drug Abuse Patient Records regulations: The Federal rules restrict any use of the information to criminally investigate or prosecute any alcohol or drug abuse patient.[facility] [place] Reason for Visit (unrecogniz ed section and [...] of plate 2 week ago seen in [facility] on 05/09/23.Was treated with cephalexin [...] catch 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 from falling 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 Letter for Coummunity [...] Reason Comments Hospital Follow Up Reason Comments [facility] nursing Reason Comments Hospital F/U dehydration c/o [...] 40 MIN 4C EXCEPTION Joon Lopez MD [address] [place] [id number] Xochitl Castrejon MD [address] [place] [address] Referral ID Status Reason Start Date Expiration Date Visits Re quested Visits Authorized [id number] Closed 08/03/2024 11/01/2024 1 1 Reason Comments Appointment Reason Comments Urinary Problem Frequency, cloudy, c onfusion x 1 week Reason Comments UTI X2 days, family stat es confusion, pt denies symptoms Reason Comments Recheck Specialty Diagnoses / Procedures Referred By Aminata marie Referred To Contact MR IMAGING Diagnoses Cognitive impairment, mild, so stated Procedures MRI BRAIN W QUANT WO IVCON MRI BRAIN BRAIN STEM W/O CONTRAST MATERIAL Xochitl Castrejon MD [address] [place] [address] Mr Imaging [facility] Referral ID Status Reason Start Date Expiration Date V isits Requested Visits Authorized [id number] Closed Auto-Generate d Referral 09/09/2024 10/25/2024 1 [...] pain in knees no rec ent x-ray Reason Comments Established Patient Follow-Up 3 month f/ u Care Teams (unrecognized sec tion and content) Vp Client Services Relationship Specialty Start Date End Date Joon Lopez MD [address] [place] [address] PCP - General 08/18/02 Vp Client Services Relationship Specialty Start Date End Date Joon Lopez MD [address] [place] [address] PCP - General 08/18/02 Vp Client Services Relationship Specialty Start Date End Date Joon Lopez MD [address] [place] [address] [place] [address] PCP - General 08/18/02 Vp Client Services Relationship Specialty Start Date End Date Joon Lopez MD [address] [place] [address] [place] [address] PCP - General 08/18/02 Vp Client Services Relationship Specialty Start Date End Date Joon Lopez MD [address] [place] [address] [place] [address] PCP - General 08/18/02 Vp Client Services Relationship Specialty Start Date End Date Joon Lopez MD [address] [place] [address] PCP - General 08/18/02 Vp Client Services Relationship Specialty Start Date End Date Joon Lopez MD [address] [place] [address] PCP - General 08/18/02 Vp Client Services Relationship Specialty Start Date End Date Joon Lopez MD [address] [place] [address] PCP - General 08/18/02 Vp Client Services Relationship Specialty Start Date End Date Joon Lopez MD [address] [place] [address] PCP - General 08/18/02 Vp Client Services Relationship Specialty Start Date End Date Joon Lopez MD [address] [place] [address] PCP - General 08/18/02 Vp Client Services Relationship Specialty Start Date End Date Joon Lopez MD [address] [place] [address] PCP - General 08/18/02 Vp Client Services Relationship Specialty Start Date End Date Joon Lopez MD [address] [facility] [place] [address] PCP - General 08/18/02 Team Status: Active Member Role Status Dates Dr. Joon Lopez MD Family Provider Active Dr. Joon Lopez MD Primary Care Provider Active Team Status: Inactive Member Role Status Dates Dr. Joon Lopez MD Primary Care Provider, Referr ing Provider Active Leeanna Mascorro [employer] HAT BRUSHER, STRAW HAT BRUSHER-C Attending Provider Active Team Status: Inactive Member [...] Ko MD Other Provider Active Adi Quevedo STR[employer] HAT BRUSHER, STRAW HAT BRUSHER-C Other Provider Active Lisandra JENKINS, PA Other Provider Active Dr. Sharan Chandra MD Attending Provider, Referring Provider Active Vp Client Services Relationship Specialty Start Date End Date Joon Lopez MD [address] [place] [address] PCP - General 08/18/02 Vp Client Services Relationship Specialty Start Date End Date Joon Lopez MD [address] [facility] [place] [address] PCP - General 08/18/02 Vp Client Services Relationship Specialty Start Date End Date Joon Lopez MD [address] [facility] [place] [address] PCP - General 08/18/02 Vp Client Services Relationship Specialty Start Date End Date Joon Lopez MD [address] [place] [address] PCP - General 08/18/02 Vp Client Services Relationship Specialty Start Date End Date Joon Lopez MD [address] [facility] [place] [address] PCP - General 08/18/02 Team Status: Active [...] Che MD Attending Provider, Emergency Provider Active Vp Client Services Relationship Specialty Start Date End Date Joon Lopez MD [address] [place] [address] PCP - General 08/18/02 Team Status: Inactive Member Role Status Dates Dr. Joon Lopez MD Primary Care Provider Active Dr. Abdifatah Lemon MD Emergency Provider Active Vp Client Services Relationship Specialty Start Date End Date Joon Lopez MD [address] [place] [address] PCP - General 08/18/02 Team Status: Inactive Member Role Status Dates Dr. Joon Lopez MD Primary Care Provider Active Dr. Abdifatah Lemon MD Attending Provider, Emergency Pro vider Active Team Status: Inactive Member Role Status Dates Dr. Joon Lopez MD Primary Care Provider Active Dr. Freddy Robert MD Emergency Provider Active Vp Client Services Relationship Specialty Start Date End Date Joon Lopez MD [address] [place] [address] PCP - General 08/18/02 Vp Client Services Relationship Specialty Start Date End Date Joon Lopez MD [address] [place] [address] PCP - General 08/18/02 Team Status: Inactive [...] Dr. Freddy Robert MD Referring Provider Active Vp Client Services Relationship Specialty Start Date End Date Joon Lopez MD [address] [place], [place] [address] PCP - General 08/18/02 Team Status: Inactive [...] Ko MD Other Provider Active Adi Quevedo STRAW HAT BRUSHER, STRAW HAT BRUSHER-C Other Provider Active Lisandra Cao PA, PA Other Provider Active Dr. Sharan Chandra MD Attending Provider, Referring Provider Active Team Status: Inactive Member Role Status Dates Dr. Joon Lopez MD Primary Care Provider Active Dr. Pete Che MD Emergency Provider Active Vp Client Services Relationship Specialty Start Date End Date Joon Lopez MD [address] [place] [address] PCP - General 08/18/02 Vp Client Services Relationship Specialty Start Date End Date Joon Lopez MD [address] [place], [place] [address] PCP - General 08/18/02 Vp Client Services Relationship Specialty Start Date End Date Joon Lopez MD [address] [place] [address] PCP - General 08/18/02 Team Status: Inactive [...] Torre DO Attending Provider, Emergency Provider Active Vp Client Services Relationship Specialty Start Date End Date Joon Lopez MD [address] [place] [address] PCP - General 08/18/02 Team Status: Active [...] Dr. Devyn Samaniego MD Other Provider Active Vp Client Services Relationship Specialty Start Date End Date Joon Lopez MD [address] [place] [address] PCP - General 08/18/02 Team Status: Inactive [...] Care Provider, Family Provider Active Adi Quevedo STRAW HAT BRUSHER, STRAW HAT BRUSHER-C Other Provider Active Lisandra Cao PA, PA Attending Provider, Referr ing Provider Active Team Status: Inactive Member Role Status Dates Dr. Joon Lopez MD Primary Care Provider Active Dr. Devyn Samaniego MD Attending Provider, Referr ing Provider Active Team Status: Inactive Member Role Status Dates Dr. Joon Lopez MD Primary Care Provider, Family Provider Active Adi Quevedo STRAW HAT BRUSHER, STRAW HAT BRUSHER-C Other Provider Active Lisandra Cao PA, PA Attending Provider, Referr ing Provider Active Vp Client Services Relationship Specialty Start Date End Date Joon Lopez MD [address] [place] [address] PCP - General 08/18/02 Team Status: Active [...] Other Provider Active Dr. Tonio Glass , DO Attending Provider, Other Provider Active Dr. Devyn Samaniego MD Other Provider Active Team Status: Inactive Member Role Status Dates Dr. Joon Lopez MD Primary Care Provider Active Dr. Miguel Perera , DO Emergency Provider Active Dr. Josesito Miller MD Admit Provider, Other Provider Active Dr. Tonio Glass , DO Attending Provider Active Dr. Devyn Samaniego MD Other Provider Active Vp Client Services Relationship Specialty Start Date End Date Joon Lopez MD [address] [place] [address] PCP - General 08/18/02 Vp Client Services Relationship Specialty Start Date End Date Joon Lopez MD [address] [place] [address] PCP - General 08/18/02 Vp Client Services Relationship Specialty Start Date End Date Joon Lopez MD [address] [place] [address] PCP - General 08/18/02 Vp Client Services Relationship Specialty Start Date End Date Joon Lopez MD [address] [place] [address] PCP - General 08/18/02 Vp Client Services Relationship Specialty Start Date End Date Joon Lopez MD [address] [facility] [place] [address] PCP - General 08/18/02 Vp Client Services Relationship Specialty Start Date End Date Joon Lopez MD [address] [place] [address] PCP - General 08/18/02 Vp Client Services Relationship Specialty Start Date End Date Joon Lopez MD [address] [place] [address] PCP - General 08/18/02 Vp Client Services Relationship Specialty Start Date End Date Joon Lopez MD [address] [place] [address] PCP - General 08/18/02 Vp Client Services Relationship Specialty Start Date End Date Joon Lopez MD [address] [place] [address] PCP - General 08/18/02 Vp Client Services Relationship Specialty Start Date End Date Joon Lopez MD [address] [place] [address] PCP - General 08/18/02 Vp Client Services Relationship Specialty Start Date End Date Joon Lopez MD [address] [place] [address] PCP - General 08/18/02 Vp Client Services Relationship Specialty Start Date End Date Joon Lopez MD [address] [place] [address] PCP - General 08/18/02 Vp Client Services Relationship Specialty Start Date End Date Joon Lopez MD [address] [place] [address] PCP - General 08/18/02 Vp Client Services Relationship Specialty Start Date End Date Joon Lopez MD [address] [place] [address] PCP - General 08/18/02 Vp Client Services Relationship Specialty Start Date End Date Joon Lopez MD [address] [place] [address] PCP - General 08/18/02 Vp Client Services Relationship Specialty Start Date End Date Joon Lopez MD [address] [place] [address] PCP - General 08/18/02 Vp Client Services Relationship Specialty Start Date End Date Joon Lopez MD [address] [place] [address] PCP - General 08/18/02 Vp Client Services Relationship Specialty Start Date End Date Joon Lopez MD [address] [place] [address] PCP - General 08/18/02 Vp Client Services Relationship Specialty Start Date End Date Joon Lopez MD [address] [place] [address] PCP - General 08/18/02 Vp Client Services Relationship Specialty Start Date End Date Joon Lopez MD [address] [place] [address] PCP - General 08/18/02 Trini Tang, 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.PACKAGING OPERATOR [address] [place] [address] Bobcat Driver/Labor Internal Medicine 10/03/24 Whitney Hammond, 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.MANAGER FRONT [address] [place] [address] Bobcat Driver/Labor Internal Medicine 10/03/24 Vp Client Services Relationship Specialty Start Date End Date Joon Lopez MD [address] [place] [address] PCP - General 08/18/02 Trini Tang, 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.PACKAGING OPERATOR [address] [place] [address] Bobcat Driver/Labor Internal Medicine 10/03/24 Whitney Hammond 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.MANAGER FRONT [address] [place] [address] Bobcat Driver/Labor Internal Medicine 10/03/24 Vp Client Services Relationship Specialty Start Date End Date Joon Lopez MD [address] [place] [address] PCP - General 08/18/02 Trini Tang, 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.PACKAGING OPERATOR [address] [place] [address] Bobcat Driver/Labor Internal Medicine 10/03/24 Whitney Hammond 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.MANAGER FRONT [address] [place] [address] Bobcat Driver/Labor Internal Medicine 10/03/24 Vp Client Services Relationship Specialty Start Date End Date Joon Lopez MD [address] [place] [address] PCP - General 08/18/02 Trini Tang, 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.PACKAGING OPERATOR [address] [place] [address] Bobcat Driver/Labor Internal Medicine 10/03/24 Whitney Hammond 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.MANAGER FRONT [address] [place] [address] Bobcat Driver/Labor Internal Medicine 10/03/24 Vp Client Services Relationship Specialty Start Date End Date Joon Lopez MD [address] [place] [address] PCP - General 08/18/02 Trini Tang, 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.PACKAGING OPERATOR [address] [place] [address] Bobcat Driver/Labor Internal Medicine 10/03/24 Whitney Hammond 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.MANAGER FRONT [address] [place] [address] Bobcat Driver/Labor Internal Medicine 10/03/24 Vp Client Services Relationship Specialty Start Date End Date Joon Lopez MD [address] [place] [address] PCP - General 08/18/02 Trini Tang, 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.PACKAGING OPERATOR [address] [place] [address] Bobcat Driver/Labor Internal Medicine 10/03/24 Whitney Hammond 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.MANAGER FRONT [address] [place] [address] Bobcat Driver/Labor Internal Medicine 10/03/24 Vp Client Services Relationship Specialty Start Date End Date Joon Lopez MD [address] [place] [address] PCP - General 08/18/02 Trini Tang, 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.PACKAGING OPERATOR [address] [place] [address] [facility] 10/03/24 Whitney Hammond 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.MANAGER FRONT [address] [place], [place] [address] [facility] Internal [facility] 10/03/24 Vp Client Services Relationship Specialty Start Date End Date Joon Lopez MD [address] [place], [place] [address] PCP - General 08/18/02 Trini Tang, 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.PACKAGING OPERATOR [address] [place], [place] [address] [facility] Internal [facility] 10/03/24 Whitney Hammond 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.MANAGER FRONT [address] [place], [place] [address] [facility] Internal [facility] 10/03/24 Team Status: Active Member Role Status Dates Dr. Joon Lopez MD Primary Care Provider Active Team Status: Inactive Member Role Status Dates Dr. Joon Lopez MD Primary Care Provider Active Start: September 19, 2024 End: September 24, 2024 Dr. Joon Lopez MD Family Provider Active Start: September 19, 2024 End: September 24, 2024 Adi Quevedo STRAW HAT BRUSHER, STRAW HAT BRUSHER-C Other Provider Active Start : September 19, [...] 2024 End: November 01, 2024 Adi Quevedo STRAW HAT BRUSHER, STRAW HAT BRUSHER-C Other Provider Active Start : November 01, [...] 2024 End: December 09, 2024 Leeanna Mascorro STRAW HAT BRUSHER, STRAW HAT BRUSHER-C Attending Provider Active Start: December 09, 2024 [...] 2025 End: January 12, 2025 Adi Quevedo STRAW HAT BRUSHER, STRAW HAT BRUSHER-C Other Provider Active Start : January 12, 2025 End: January 12, 2025 Lisandra Cao PA, PA Attending Provider Active Start: January 12, 2025 End: January 12, 2025 Lisandra Cao PA, PA Referring Provider Active Start: January 12, 2025 End: January 12, 2025 Dr. Xochitl Castrejon MD Other Provider Active Star t: January 12, 2025 End: January 12, 2025 Vp Client Services Relationship Specialty Start Date End Date Joon Lopez MD [address] [facility] [place] [address] PCP - General 08/18/02 Trini Tang, 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.PACKAGING OPERATOR [address] [place] [address] Bobcat Driver/Labor Internal Medicine 10/03/24 Whitney Hammond 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.MANAGER FRONT [address] [place] [address] [facility] Internal Medicine 01/17/25 Vp Client Services Relationship Specialty Start Date End Date Joon Lopez MD [address] [place] [address] PCP - General 08/18/02 Trini Tang, 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.PACKAGING OPERATOR [address] [place] [address] Bobcat Driver/Labor Internal Medicine 10/03/24 Whitney Hammond APRN.MANAGER FRONT [address] [facility] [place] [address] [facility] Internal Medicine 01/17/25 Vp Client Services Relationship Specialty Start Date End Date Joon Lopez MD [address] [place] [address] PCP - General 08/18/02 Trini Tang, 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.PACKAGING OPERATOR [address] [place] [address] Bobcat Driver/Labor Internal Medicine 10/03/24 Whitney Hammond APRN.MANAGER FRONT [address] [place] [address] Bobcat Driver/Labor Internal Medicine 01/17/25 Vp Client Services Relationship Specialty Start Date End Date Joon Lopez MD [address] [place] [address] PCP - General 08/18/02 Trini Tang, 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.PACKAGING OPERATOR [address] [facility] [place] [address] Bobcat Driver/Labor Internal Medicine 10/03/24 Whitnye Hammond APRN.MANAGER FRONT [address] [facility] [place] [address] Bobcat Driver/Labor Internal Medicine 01/17/25 Vp Client Services Relationship Specialty Start Date End Date Joon Lopez MD [address] [facility] [place] [address] PCP - General 08/18/02 Trini Tang, 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.PACKAGING OPERATOR [address] [place] [address] Bobcat Driver/Labor Internal Medicine 10/03/24 Whitney Hammond APRN.MANAGER FRONT [address] [facility] [place] [address] Bobcat Driver/Labor Internal Medicine 01/17/25 Vp Client Services Relationship Specialty Start Date End Date Joon Lopez MD [address] [place] [address] PCP - General 08/18/02 Tirni Tang, 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.PACKAGING OPERATOR [address] [place] [address] Bobcat Driver/Labor Internal Medicine 10/03/24 Whitney Hammond APRN.MANAGER FRONT [address] [place], [place] [address] [facility] Internal Medicine 01/17/25 Vp Client Services Relationship Specialty Start Date End Date Joon Lopez MD [address] [place], [place] [address]171 PCP - General 08/18/02 Trini Tang APRN.PACKAGING OPERATOR [address] [place], [place] [address] [facility] Internal Medicine 10/03/24 Whitney Hammond 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.MANAGER FRONT [address] [place], [place] [address] [facility] Internal Medicine 01/17/25 Team Status: Inactive Member Role Status Dates Dr. Joon Lopez MD Primary Care Provider Active Start: March 23, 2025 End: March 23, 2025 Dr. Joon Lopez MD Family Provider Active Start: March 23, 2025 End: March 23, 2025 Adi Quevedo STRAW HAT BRUSHER, STRAW HAT BRUSHER-C Other Provider Active Start : March 23, 2025 End: March 23, 2025 Lisandra Cao PA, PA Attending Provider Active Start: March 23, 2025 End: March 23, 2025 Lisandra Cao PA, PA Referring Provider Active Start: March 23, 2025 End: March 23, 2025 Dr. Xocihtl Castrejon MD Other Provider Active Star t: March 23, 2025 End: March 23, 2025 Vp Client Services Relationship Specialty Start Date End Date Joon Lopez MD [address] [place], [place] [address] PCP - General 08/18/02 Whitney Hammond 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.MANAGER FRONT [address] [place] [address] [facility] Internal Medicine 01/17/25 Trini Tang APRN.PACKAGING OPERATOR [address] [place] [address] [facility] Internal Medicine 03/15/25 Team Status: Active Member Role/Relationship Status Dates Dr. Joon Lopez MD Family Provider Active Dr. Joon Lopez MD Primary Care Provider Active Team Status: Inactive Member Role/Relationship Status Dates Dr. Joon Lopez MD Primary Care Provider Active Start: March 23, 2025 End: March 23, 2025 Dr. Joon Lopez MD Family Provider Active Start: March 23, 2025 End: March 23, 2025 Adi Quevedo STRAW HAT BRUSHER, STRAW HAT BRUSHER-C Other Provider Active Start : March 23, 2025 End: March 23, 2025 Lisandra Cao PA, PA Attending Provider Active Start: March 23, 2025 End: March 23, 2025 Lisandra Cao PA, PA Referring Provider Active Start: March 23, 2025 End: March 23, 2025 Dr. Xochitl Castrejon MD Other Provider Active Star t: March 23, 2025 End: March 23, 2025 Team Status: Active Member Role/Relationship Status Dates Dr. Joon Lopez MD Primary Care Provider Active Start: May 11, 2025 Dr. Joon Lopez MD Family Provider Active Start: May 11, 2025 Adi Quevedo STRAW HAT BRUSHER, STRAW HAT BRUSHER-C Other Provider Active Start : May 11, 2025 Lisandra Cao PA, PA Attending Provider Active Start: May 11, 2025 Lisandra Cao PA, PA Referring Provider Active Start: May 11, 2025 Dr. Xochitl Castrejon MD Other Provider Active Star t: May 11, 2025 Team Status: Inactive Member Role/Relationship Status Dates Dr. Joon Lopez MD Primary Care Provider Active Start: May 11, 2025 End: May 11, 2025 GREGORY Zapein Attending Provider Active Start: May 11, 2025 End: May 11, 2025 Team Status: Active Member Role/Relationship Status Dates Dr. Joon Lopez MD Primary Care Provider Active Start: May 11, 2025 GREGORY Zapien Attending Provider Active Start: May 11, 2025 Team Status: Inactive Member Role/Relationship Status Dates Dr. Joon Lopez MD Primary Care Provider Active Start: May 11, 2025 End: May 11, 2025 GREGORY Zapien Attending Provider Active Start: May 11, 2025 End: May 11, 2025 Team Status: Inactive Member Role/Relationship Status Dates Dr. Joon Lopez MD Primary Care Provider Active Start: May 11, 2025 End: May 25, 2025 Dr. Joon Lopez MD Family Provider Active Start: May 11, 2025 End: May 25, 2025 Adi Quevedo STRAW HAT BRUSHER, STRAW HAT BRUSHER-C Other Provider Active Start : May 11, 2025 End: May 25, 2025 GREGORY Zapien Attending Provider Active Start: May 11, 2025 End: May 25, 2025 GREGORY Zapien Referring Provider Active Start: May 11, 2025 End: May 25, 2025 Dr. Xochitl Castrejon MD Other Provider Active Star t: May 11, 2025 End: May 25, 2025 FOR RECORDS PERTAINING TO PATIENTS WHO [...] BE BASED ON THE PRIMARY CLINICAL RECORDS. [facility]. provides no warranty or guarantee of the accuracy or completeness of information in this document.
[2025-06-07 21:21] LABS: Prothrombin Time (Protime)PT. 17.8 SECONDS (11.7-14.9)
[2025-06-07 21:22] LABS: Partial Thromboplast Time 31.6 Seconds (24.1-36.2)
[2025-06-07 21:40] LABS: Anion Gap 13 (5-15); BUN 24 mg/dL (4-19); BUN/Creat Ratio 20.7 RATIO (10-20); Calcium,Total 9.5 mg/dL (7.6-11.0); Carbon Dioxide 22.6 mmol/L (21.0-32.0); Chloride 103 mmol/L (98-108); Estimated Creatinine Clearance 45.87 ml/min (50-250); Glucose 112 mg/dL (70-99); Potassium 3.9 mmol/L (3.3-5.1)
--- NOTE | 2025-06-07 21:55 | ED.VIS.FALL ---
HPI HPI - Fall History of Present Illness Chief Complaint: Fall Informant: patient Narrative Narrative: Brought in by EMS from home for fall outside. Patient baseline ambulates with a walker. She states she takes care of her landlord's dog. States that the toilet down the heel on gravel. She decided to walk down without her walker falling onto her knee and bumping her head. Abrasion the right knee with facial contusion. She does take warfarin history of paroxysmal A-fib. She states INR checked yesterday however does not know what the number was. Denies headache. States pain to her right knee. Tetanus unknown however states her daughter on her way to the hospital. She lives alone. No neck or back pain no chest pain. No hip pain. Tetanus Immunization: Unknown [facility] Medical History Alzheimer dementia half-way (current) use of anticoagulants RAMESH (obstructive sleep apnea) Asthma History of complete heart block Other intervertebral disc degeneration, lumbar region Low back pain History of fall Non-pressure chronic ulcer of other part of left foot with fat layer exposed Pain in left foot Cardiac murmur Left knee sprain Falls Abnormal EKG Ulcer of right lower extremity with fat layer exposed Atrial flutter Obesity Pulmonary hypertension Subtherapeutic international normalized ratio (INR) Hyperlipidemia Type 2 diabetes mellitus Wears glasses Wears dentures Post-menopausal Sore on leg Arthritis Dietary restriction CPAP (continuous positive airway pressure) dependence Non-smoker Shortness of breath on exertion Cardiology follow-up encounter History of stress test History of echocardiogram Ureteral mass Hydronephrosis, right Fracture of left elbow Cervical strain, acute COVID-19 Essential hypertension Hyperlipidemia DDD (degenerative disc disease) Shoulder dislocation Contact dermatitis and other eczema Allergic rhinitis 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 Obesity Diabetes mellitus Hypersomnia Other secondary pulmonary hypertension BMI 33.0-33.9,adult Hx of bladder infections Atrial fibrillation Home Medications ?Medication ?Instructions ?Recorded ?Last Taken ?Type atorvastatin 10 mg tablet 10 mg PO QHS cholesterol 12/11/19 05/03/24 History gabapentin 300 mg capsule 300 mg PO BREAKFAST nerve pain 08/04/22 07/04/24 History gabapentin 300 mg capsule 600 mg PO QHS Neuropathy 08/04/22 05/03/24 History albuterol sulfate 90 mcg/actuation 2 puff inhalation Q4H PRN 03/04/24 Unknown Rx aerosol inhaler shortness of breath or wheezing #8.5 grams cholecalciferol (vitamin D3) 50 50 mcg PO DAILY 04/13/24 05/04/24 History mcg (2,000 unit) capsule magnesium oxide 250 mg PO DAILY SUPPLEMENT 04/13/24 05/04/24 History mecobalamin (vitamin B12) 1,000 1,000 mcg PO DAILY 04/13/24 05/04/24 History mcg chewable tablet oxybutynin chloride 10 mg 10 mg PO DAILY 04/13/24 Unknown History tablet,extended release 24 hr acetaminophen 500 mg tablet 1,000 mg (2 x 500 mg) PO Q8 PRN 05/06/24 Unknown Rx fever or pain #0 tabs glimepiride 2 mg tablet 2 mg PO BID 06/10/24 Unknown History blood-glucose meter (OneTouch #1 ea 07/01/24 Unknown History Verio Flex Meter) montelukast 10 mg tablet 10 mg PO QPM #90 tabs 07/26/24 Unknown Rx docusate sodium 100 mg capsule 100 mg PO BID #60 caps 08/21/24 Unknown Rx (Colace) warfarin 5 mg tablet 5 mg PO .COMPLEX blood thinner #90 05/15/25 Unknown Rx tabs donepezil 10 mg tablet 10 mg PO DAILY 06/07/25 Unknown History nitrofurantoin 1 cap PO QODAY 06/07/25 Unknown History monohydrate/macrocrystals 100 mg capsule sertraline 100 mg tablet 100 mg PO DAILY 06/07/25 Unknown History Allergy/AdvReac Type Severity Reaction Status Date / Time amoxicillin Allergy Severe Hives Verified 06/07/25 20:09 aspirin Allergy Severe Hives, SOB Verified 06/07/25 20:09 Sulfa (Sulfonamide Allergy Severe Hives Verified 06/07/25 20:09 Antibiotics) Family History Mother Diabetes Father CAD (coronary artery disease) Sister Lung cancer Son Kidney stone Surgical History Presence of permanent cardiac pacemaker (04/01/19) S/P ablation of atrial flutter (04/01/19) History of cystoscopy Hx of right cataract extraction Hx of left cataract extraction History of kidney surgery History of appendectomy Social History household members: none housing: house number of children: 3 current occupational status: retired Smoking Status: Never smoker alcohol intake: never substance use type: does not use what type of physical activity do you participate in: none do you feel safe at home: Yes ROS ROS ED Constitutional Constitutional ED: Denies fever(s) Cardiovascular Cardiovascular: Denies chest pain Respiratory/Chest Respiratory/Chest: Denies cough Gastrointestinal Gastrointestinal: Denies diarrhea or vomiting Musculoskeletal Musculoskeletal: Reports other Details: Right knee pain Integumentary Reports Abrasions and wounds; Denies rash Neurologic Neurologic: Denies weakness EXAM Physical Exam Const Vital Signs: 06/07/25 20:05 06/07/25 20:27 Temperature 97.6 F L Temperature Source Temporal Pulse Rate 71 Respiratory Rate 16 Respiratory Effort Normal Non-Labored Blood Pressure 133/75 H Blood Pressure Mean 94 Pulse Ox 95 Oxygen Delivery Method Room Air Positive well nourished and well developed Constitutional Narrative: GCS 15. General Appearance ED: well developed and NAD HEENT Reports TM's clear and moist mucous membranes HEENT Narrative: Left forehead hematoma, skin intact. normocephalic Tympanic Membrane ED: Yes TM's clear Eyes General Eye ED: Yes normal appearance of both eyes Neck full ROM Neck Narrative: No midline tenderness no step-offs. Chest Wall inspection of chest normal and palpation of chest normal Chest: Negative for tenderness Resp normal respiratory effort and normal air movement Effort and Inspection: symmetric chest movement; Negative for respiratory distress Cardio regular rate, regular rhythm and no murmurs Peripheral Pulses: pulses 2+ throughout GI normal to inspection, nondistended, normoactive bowel sounds and non-tender Palpation: Negative for guarding or rebound tenderness present Back/Spine Back/Spine Narrative: No thoracic or lumbar tenderness no ecchymosis Extremity Extremity Narrative: Upper extremities: Full range of motion no deformity soft compartments. Left forearm with superficial abrasions dorsally. No active bleeding or lacerations. Pulses intact distally. Lower extremities: Negative logroll bilaterally. Right knee extensor mechanism intact. Abrasions across patellar mild tenderness at the patellar. No deformities. No calf tenderness. Pulses intact distally. Left knee without tenderness. Soft compartments. Pulse intact distally. General Extremety ED: Yes tenderness; Negative for edema General Extremity: Negative for edema Neuro oriented x3, CN's II-XII intact bilaterally and no sensory deficits noted Sensorium / Orientation: awake and alert Skin Skin Narrative: See above MDM MDM MDM Narrative Medical decision making narrative: Interventions / MDM: Differential diagnosis: Facial contusion, closed head injury, knee abrasion with contusion, Diagnosis considered but do not suspect: Intracranial hemorrhage, fractures however image studies negative. My EKG interpretation: N/A Imaging independently reviewed and interpreted by myself: CT brain/cervical spine: Soft tissue hematoma no fractures no intracranial hemorrhage. Right knee x-ray 4 views: Degenerative changes noted, no fractures. Also read by radiology. External documents reviewed: N/A Test considered but not ordered:N/A ED course: Patient mechanical fall head injury on warfarin. Injury to right knee with patellar tenderness. IV was established will check basic labs and coags. Trauma scans head and neck low x-rays right knee. CT head and neck negative right knee x-ray negative. Daughters are present on reevaluation. They checked MyChart cannot find records of her tetanus therefore this was obtained in the ED. Abrasions were cleansed and dressed by nursing. INR returned subtherapeutic at 1.4. Discussed results and findings with patient and daughters. She is able to ambulate with a walker. She will use Tylenol as needed in addition she does see pain management with stronger pain medicines per family. She has her warfarin adjusted through her cardiology office. They will call tomorrow for adjustments. Discharged home with daughters. All questions were answered. Re-evaluation: stable Disposition discussed with patient/family/significant other: Patient and family Case discussed with consulting clinician: N/A This note was generated with [employer] dictation software. It may contain incorrect words, spelling, and punctuation that were not noted in checking the note before signing. Lab Data Attestation: I reviewed the patient's lab results. Labs: Laboratory Results - last 24 hr 06/07/25 20:35 WBC 6.8 RBC 4.03 L Hgb 13.1 Hct 38.5 MCV 95.5 MCH 32.5 H MCHC 34.0 RDW Std Deviation 42.6 RDW Coeff of Jason 12.2 Plt Count 144 L MPV 10.0 Immature Gran % (Auto) 0.400 Neut % (Auto) 60.2 Lymph % (Auto) 24.7 [place] % (Auto) 8.1 Eos % (Auto) 5.7 H Baso % (Auto) 0.9 Absolute Neuts (auto) 4.1 Absolute Lymphs (auto) 1.68 Nucleated RBC % 0 PT 17.8 H INR 1.4 APTT 31.6 Sodium 139 Potassium 3.9 Chloride 103 Carbon Dioxide 22.6 Anion Gap 13 BUN 24 H Creatinine 1.16 Estim Creat Clear Calc 45.87 L Est GFR (MDRD) Non-Af 48 L BUN/Creatinine Ratio 20.7 H Glucose 112 H Calcium 9.5 Radiography Diagnostic Testing: Clinical Impression(s) from Imaging Studies Brain CT 06/07/25 20:34 IMPRESSION: No acute intracranial findings Reading Location: [place] [address] 06/07/25 20:34 IMPRESSION: 1. No acute fracture. 2. Degenerative changes of the cervical spine as described. Reading Location: [facility] Knee X-Ray 06/07/25 21:00 IMPRESSION: Mild CPPD osteoarthropathy. Reading Location: [place] [address] Discharge Plan Triage Chief Complaint: Fall ED Provider: Dyllan Alfonso Dx/Rx/DC Orders Clinical Impression: Fall, Contusion of face, CHI (closed head injury), Contusion of knee, right, Abrasion of knee, right, Abrasion of forearm, left, Tetanus toxoid vaccination administered at current visit, Subtherapeutic international normalized ratio (INR) Instructions: ED Abrasion, ED Contusion, Lower Extremity, ED Facial Contusion Prescriptions: No Action albuterol sulfate 90 mcg/actuation HFA aerosol inhaler 2 puff INHALATION Q4H PRN (Reason: shortness of breath or wheezing) Qty: 8.5 6RF Rx Instructions: administer with spacer oxybutynin chloride 10 mg tablet extended release 24hr 10 mg PO DAILY cholecalciferol (vitamin D3) 50 mcg (2,000 unit) capsule 50 mcg PO DAILY mecobalamin (vitamin B12) 1,000 mcg tablet,chewable 1,000 mcg PO DAILY glimepiride 2 mg tablet 2 mg PO BID (DME) blood-glucose meter [OneTouch Verio Flex meter] Misc See Rx Instructions .ROUTE .MEDSUPPLY Qty: 1 Patient Comments: [NO ORIGINAL SIG] Rx Instructions: As directed donepezil 5 mg tablet PO DAILY atorvastatin 10 MG tablet 10 mg PO QHS gabapentin 300 mg capsule 600 mg PO QHS Patient Comments: Take 2 capsules by mouth daily at bedtime AND 1 capsule every morning. gabapentin 300 mg capsule 300 mg PO BREAKFAST Patient Comments: Take 2 capsules by mouth daily at bedtime AND 1 capsule every morning. Rx Instructions: 300 mg orally; magnesium oxide 400 mg magnesium tablet 250 mg PO DAILY acetaminophen 500 mg Tablet 1,000 mg PO Q8 PRN (Reason: fever or pain) Qty: 0 0RF sertraline 50 mg tablet 50 mg PO DAILY trospium 20 mg tablet 20 mg PO BID oxycodone-acetaminophen 5-325 mg tablet 1 tab PO Q6H PRN PRN (Reason: Pain) 3 Days Qty: 12 0RF docusate sodium [Colace] 100 mg capsule 100 mg PO BID Qty: 60 0RF montelukast 10 mg tablet 10 mg PO QPM Qty: 90 3RF warfarin 5 mg tablet 5 mg PO .COMPLEX Qty: 90 3RF Protocol: Dose Management Condition: Thursday Dose/Route: 2.5 mg Instruction: 0.5 x 5 mg tablets Condition: Thursday Dose/Route: 7.5 mg Instruction: 1.5 x 5 mg tablets Condition: Thursday Dose/Route: 5 mg Instruction: 1 x 5 mg tablet Condition: Thursday Dose/Route: 5 mg Instruction: 1 x 5 mg tablet Condition: Dose/Route: 5 mg Instruction: 1 x 5 mg tablet Condition: Thursday Dose/Route: 5 mg Instruction: 1 x 5 mg tablet Condition: Thursday Dose/Route: 5 mg Instruction: 1 x 5 mg tablet Protocol Text: Adjustment Start Date: Thursday05/15/25 INR Value: 1.2 INR Date: 05/11/25 Recheck Date: 05/23/25 Rx Instructions: 5 mg orally every day except 1/2 tablet (2.5 mg) on Sundays; OR as directed- Please give 90 tablets for periodic dose changes Primary Care Provider: Ro Reed Referrals: Ro Reed MD [Primary Care Provider] - 1-2 Weeks Activity Restrictions/Additional Instructions: CT brain and cervical spine negative. X-ray right knee no fractures. Your tetanus updated in the ED. Your INR subtherapeutic 1.4. Discussed with your cardiology office for adjustments of your warfarin. Print Language: Luxembourgish Disposition Disposition: Home, Self Care
[2025-06-07 21:57] VITALS: BP 140/72; PULSE 65; RESP 18; TEMP 36.4; O2SAT 95
== END 2025-06-07 22:08 | disposition home or self-care (01) ==
PROVIDERS: Emergency Provider Emergency Medicine; PCP Internal Medicine; Referring Provider Emergency Medicine; Visit Provider Emergency Medicine
DX: S50.812A Abrasion of left forearm, initial encounter (principal); G30.9 Alzheimer's disease, unspecified; F02.80 Dementia in other diseases classified elsewhere, unspecified severity, without behavioral disturbance, psychotic disturbance, mood disturbance, and anxiety; I48.0 Paroxysmal atrial fibrillation; E11.9 Type 2 diabetes mellitus without complications; S80.01XA Contusion of right knee, initial encounter; S00.83XA Contusion of other part of head, initial encounter; I10 Essential (primary) hypertension; E78.5 Hyperlipidemia, unspecified; Z79.01 Long term (current) use of anticoagulants; W17.81XA Fall down embankment (hill), initial encounter; Y93.K9 Activity, other involving animal care; Y92.89 Other specified places as the place of occurrence of the external cause; G47.33 Obstructive sleep apnea (adult) (pediatric); Z99.89 Dependence on other enabling machines and devices; Z79.899 Other long term (current) drug therapy; Z79.84 Long term (current) use of oral hypoglycemic drugs; Z95.0 Presence of cardiac pacemaker; Z98.41 Cataract extraction status, right eye; Z98.42 Cataract extraction status, left eye; Z90.49 Acquired absence of other specified parts of digestive tract; Z23 Encounter for immunization; S09.90XA Unspecified injury of head, initial encounter
CPT/HCPCS: 70450; 72125; 73564; 80048; 85025; 85610; 85730; 90715; 99285; A4216

== ENCOUNTER 2025-06-14 08:53 | Outpatient (RCR) | payer MEDICARE, SELFPAY ==
[2025-06-14 10:38] LABS: Prothrombin Time (Protime)PT. 26.1 SECONDS (11.7-14.9)
== END 2025-06-14 18:00 | disposition home or self-care (01) ==
LOC: LAB 08:53
PROVIDERS: Internal Medicine Cardiovascular Disease; Family Provider Internal Medicine; PCP Internal Medicine; Referring Provider Physician Assistant Medical; Visit Provider Physician Assistant Medical
DX: Z79.01 Long term (current) use of anticoagulants; Z98.890 Other specified postprocedural states; Z86.79 Personal history of other diseases of the circulatory system
CPT/HCPCS: 36415; 85610

== ENCOUNTER 2025-07-18 09:01 | Outpatient (RCR) | payer MEDICARE, SELFPAY ==
[2025-07-18 09:43] LABS: Prothrombin Time (Protime)PT. 25.7 SECONDS (11.7-14.9)
== END 2025-07-25 18:00 | disposition home or self-care (01) ==
LOC: LAB 09:01
PROVIDERS: Family Provider Internal Medicine; PCP Internal Medicine; Referring Provider Physician Assistant Medical; Visit Provider Physician Assistant Medical
DX: Z98.890 Other specified postprocedural states (principal); Z79.01 Long term (current) use of anticoagulants
CPT/HCPCS: 36415; 85610

== ENCOUNTER 2025-09-05 11:35 | Outpatient (RCR) | payer MEDICARE, SELFPAY ==
[2025-09-05 11:57] LABS: Prothrombin Time (Protime)PT. 15.1 SECONDS (11.7-14.9)
== END 2025-09-23 18:00 | disposition home or self-care (01) ==
LOC: LAB 11:35
PROVIDERS: Family Provider Internal Medicine; PCP Internal Medicine; Referring Provider Physician Assistant Medical; Visit Provider Physician Assistant Medical
DX: Z98.890 Other specified postprocedural states (principal); Z86.79 Personal history of other diseases of the circulatory system; Z79.01 Long term (current) use of anticoagulants
CPT/HCPCS: 36415; 85610